=== PATIENT | female | born 1970 | race Caucasian/White ===

== ENCOUNTER 2025-01-02 17:58 | Outpatient (CLI) | payer OTHER, SELFPAY ==
--- OUTSIDE RECORDS SUMMARY | 2024-11-13 15:00 | XMS_ITS | Encounter Summary ---
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 Name Role Phone Trevor Rolon DO Primary Care Provider Lucy Christopher DO Unavailable Reason for Visit * Reason Comments psoriatic arthritis * Consultation (Routine) - Authorized Specialty Diagnoses / Procedures Referred By Truong bella Referred To Contact Rheumatology Diagnoses Psoriatic arthritis Procedures MN OFFICE/OUTPATIENT NEW SF MDM 15 MINUTES MN OFFICE/OUTPATIENT NEW LOW MDM 30 MINUTES MN OFFICE/OUTPATIENT NEW MODERATE MDM 45 MINUTES MN OFFICE/OUTPATIENT NEW HIGH MDM 60 MINUTES MN OFFICE/OUTPATIENT ESTABLISHED SF MDM 10 MIN MN OFFICE/OUTPATIENT ESTABLISHED LOW MDM 20 MIN MN OFFICE/OUTPATIENT ESTABLISHED MOD MDM 30 MIN MN OFFICE/OUTPATIENT ESTABLISHED HIGH MDM 40 MIN Laquita Corral PA [address] [facility] [address] [place] [address] Phone: tel: fax: Suman Treviño MD [address] [place] [address] Phone: tel: fax: Referral ID Status Reason Start Date Expiration Date Visits Requested Visits Authorized [id number] Authorized Specialty Services Required 09/01/2024 09/01/2025 1 3 Encounter Details Date Type Department Care Team (Latest Contact Info) Description 11/13/2024 3:00 PM EDT Office Visit [facility] [address] [facility] [place] [id number] Suman Treviño MD [address] [place] [phone] Psoriatic arthritis (Primary Dx); Psoriasis; Paroxysmal atrial fibrillation; Hepatic encephalopathy Social History Tobacco Use Types Packs/Day Years Used Date Smoking Tobacco: Former Cigarettes 1 7 2 015 - 2021 Passive Smoke Exposure: Past Smokeless Tobacco: Never Alcohol Use Standard Drinks/Week Comments Never 0 (1 standard drink = 0.6 oz pur e alcohol) Humiliation, Afraid, Rape, and Kick questionnair e Answer Date Recorded Within the last year, have y ou been afraid of your partner or ex-partner? No 07/24/2022 Within the last year, have y ou been humiliated or emotionally abused in other ways by your partner or ex-partner? No Within the last year, have y ou been kicked, hit, slapped, or otherwise physically hurt by your partner or ex-partner? No 07/24/2022 Within the last year, have y ou been raped or forced to have any kind of sexual activity by your partner or ex-partner? No 07/24/2022 Social Connection and Isolation Panel Answer Date Recorded In a typical week, how many times do you talk on the phone with family, friends, or neighbors? Twice a week 07/24/2022 How often do you get togethe r with friends or relatives? Once a week 07/24/2022 How often do you attend chur ch or protestant services? More than 4 times per year 07/24/2022 Do you belong to any clubs o r organizations such as latter-day groups, unions, fraternal or athletic groups, or school groups? No 07/24/2022 How often do you attend meet ings of the clubs or organizations you belong to? Never 07/24/2022 Are you , , di vorced, , never , or living with a partner? 07/24/2022 AUDIT-C Answer Date Recorded Q1: How often do you have a drink containing alcohol? Never 07/23/2022 Q2: How many drinks containi ng alcohol do you have on a typical day when you are drinking? Patient does not drink Q3: How often do you have si x or more drinks on one occasion? Never 07/23/2022 Overall Financial Resource Strain (CARDIA) Answe r Date Recorded How hard is it for you to pa y for the very basics like food, housing, medical care, and heating? Not hard at all 07/24/2022 PHQ-2 Answer Date Recorded Patient Health Questionnaire-2 Score 0 09/28/2023 [facility] [place] of Occupat ional Health - Occupational Stress Questionnaire Answer Date Recorded Do you feel stress - tense, restless, nervous, or anxious, or unable to sleep at night because your mind is troubled all the time - these days? Not at all 07/24/2022 Exercise Vital Sign Answer Date Recorde d On average, how many days pe r week do you engage in moderate to strenuous exercise (like a brisk walk)? 0 days 07/23/2022 On average, how many minutes do you engage in exercise at this level? 0 min 07/23/2022 Hunger Vital Sign Answer Date Recorded Within the past 12 months, y ou worried that your food would run out before you got the money to buy more. Never true 07/24/19 23 Within the past 12 months, t he food you bought just didn't last and you didn't have money to get more. Never true 07/24/2022 PRAPARE - Transportation Answer Date Re corded In the past 12 months, has l ack of transportation kept you from medical appointments or from getting medications? No 07/12 In the past 12 months, has l ack of transportation kept you from meetings, work, or from getting things needed for daily living? No 07/24/2022 Housing Stability Vital Sign Answer Matt e Recorded In the last 12 months, was t here a time when you were not able to pay the mortgage or rent on time? No 07/24/2022 In the last 12 months, how many places have you lived? 1 07/24/2022 In the last 12 months, was t here a time when you did not have a steady place to sleep or slept in a halfway (including now)? No 07/24/2022 Comments No Sex and Gender Information Value Date Recorded Sex Assigned at Female 09/17/2021 11:23 AM EST Legal Sex Female 11:23 AM EST Gender Identity Female 09/17/2021 11:23 AM EST Sexual Orientation Straight 09/17/2021 11 :23 AM EST documented as of this encounter Last Filed Vital Signs Vital Sign Reading Time Taken Comments Blood Pressure 92/64 11/13/2024 3:08 PM EDT Pulse 80 11/13/2024 3:08 PM EDT Temperature 37.1 C (98.7 F) 11/13/2024 3:08 PM EDT Respiratory Rate 20 11/13/2024 3:08 PM EDT Oxygen Saturation 100% 11/13/2024 3:08 PM EDT Inhaled Oxygen Concentration - - Weight 74.4 kg (164 lb) 11/13/2024 3:08 PM EDT Height 170.2 cm (5' 7 ) 11/13/2024 3:08 PM EDT Body Mass Index 25.69 11/13/2024 3:08 PM EDT documented in this encounter Progress Notes * Suman Treviño MD - 11/13/2024 3:00 PM EDT [facility] Rheumatology Outpatient Consult Note Referring provider: Reason for the visit : History of Present Illness: This is a 54 y.o. old female with PMH (including but not limited) of psoriasis, PsA here fin consultation by his PCP to evaluate PsA t establish care Used to see Rheumatology Dr. Cain, last seen him in 2016, took methotrexate, Humira and folic acid for 12 years. Off both medication since 2016. She quit going there due to insurance changes. Mostly hands, shoulders and knees at the time of dx Has Non alcoholic cirrhosis, seeing [facility] liver / transplant team and she was told that she is not ready for transplant as her MELD score was low. She denies hair loss, eye inflammation, dry eyes/mouth, oral/nasal ulcer, dysphagia, CP/SOB, NVDC, skin rash, Raynaud phenomenon, hemoptysis, hematemesis, gross hematuria, weight change, fever, chills. No history of IBD. Patient denies history of cancer. Today reports hands, elbows and having a lot trouble of her feet Has peripheral neuropathy walking on nails all the time burning and stay cold, has upcomming appointment with podiatry. Hx of passing out and activity seeing Dr. Knox. Working on progress with US carotid, MRI brain andHolter monitor Sees [facility] Hematology for low platelets. Rx with steroid for her psoriasis this year and resolved. Rheumatology ROS Headache: No, Scalp tenderness: No, Jaw Claudication: No, Limb claudication: No Epistaxis: No, Chronic Sinusitis: No, Hearing loss: No, Red/Painful eye: No Raynaud's: No, Digital ulcers: No, Skin tightening: No, Purpura: No Alopecia: No, oral/nasal sores: No Dry Eyes: No, Dry Mouth: No Malar rash: No, Photosensitivity: No Serositis: No Cytopenias: No H/o VTE: No H/o CVA: No H/o Miscarriage: x 1 H/o Seizures: No Enthesitis: No, Dactylitis: No, IBP: No, Buttock pain: No H/o inflammatory eye disease: No H/o urethritis: No H/o asthma: No FHx of IBD: No FHx of PSO: No Review of Systems: All systems reviewed and negative except per HPI Medications: Current Outpatient Medications Medication Sig Dispense Refill bumetanide (Bumex) 1 MG tablet Take 2 tablets (2 mg) by mouth in the morning. Continuous Glucose Sensor (Dexcom G7 Sensor) misc 1 each q10 days. Use every 10 days 3 each 11 desvenlafaxine (Pristiq) 50 MG 24 hr tablet Take 1 tablet (50 mg) by mouth in the morning. Do not crush, chew, or split. Diclofenac Sodium (Voltaren) 1 % gel Apply to affected area BID PRN 100 g 2 empagliflozin (Jardiance) 25 MG Take 1 tablet (25 mg) by mouth in the morning. 30 tablet 11 ergocalciferol (Vitamin D-2) 1.25 MG (59661 UT) capsule Take 1 capsule (1.25 mg) by mouth 1 (one) time per week. FeroSul 325 (65 Fe) MG tablet Take 1 tablet (325 mg) by mouth in the morning. glucose blood (OneTouch Verio) test strip Use 3 per day. Code E11.65 100 each 11 hydrOXYzine HCl (Atarax) 25 MG tablet Take 1 tablet (25 mg) by mouth if needed in the morning, at noon, and at bedtime for itching. insulin aspart (NovoLOG FLEXPEN) 100 UNIT/ML pen Take 5 units at breakfast, lunch, and supper if premeal BS >150. Max daily dose 50 units 15 mL 3 Insulin Pen Needle (Pen [place]) 32G X 4 MM misc Use 4 per day 100 each 3 LACTULOSE PO Take by mouth in the morning. lansoprazole (Prevacid) [address] capsule Take by mouth before breakfast. Do not crush or chew. Lantus SoloStar 100 UNIT/ML pen Take 20 units daily. Titrate to target glucose. Max daily dose 50 units. 15 mL 3 lidocaine (Lidoderm) 5 % patch Apply 1 patch topically if needed each day for mild pain (1-4) or moderate pain (5-7). lisinopril 2.5 MG tablet Take 1 tablet (2.5 mg) by mouth in the morning. metoprolol succinate XL (Toprol-XL) 200 MG 24 hr tablet Take 1 tablet (200 mg) by mouth in the morning. potassium chloride CR (Klor-Con M20) 20 MEQ ER tablet Take 1 tablet (20 mEq) by mouth in the morning and 1 tablet (20 mEq) in the evening. Rimegepant Sulfate (Nurtec) 75 MG tablet dispersible Take 1 tab PO at the onset of a migraine. Do not exceed more than 1 tab in 24 hours. 8 tablet 5 rOPINIRole (Requip) 1 MG tablet Take 1 tablet (1 mg) by mouth in the morning, at noon, in the evening, and at bedtime. Semaglutide, 1 MG/DOSE, (Ozempic, 1 MG/DOSE,) 4 MG/3ML solution pen-injector Inject 1 mg under the skin 1 (one) time per week. Take 1 mg each week 3 mL 11 simvastatin (Zocor) 20 MG tablet Take 1 tablet (20 mg) by mouth at bedtime. spironolactone (Aldactone) 100 MG tablet Take 1 tablet (100 mg) by mouth in the morning. Xifaxan 550 MG tablet TAKE 1 Tablet BY MOUTH EVERY MORNING AND AT BEDTIME 60 tablet 2 Lifitegrast (Xiidra) 5 % solution INSTILL 1 DROP IN EACH EYE TWO TIMES A DAY (Patient taking differently: if needed each day. INSTILL 1 DROP IN EACH EYE TWO TIMES A DAY) 180 each 4 ondansetron (Zofran) 4 MG tablet Take 1 tablet (4 mg) by mouth every 8 (eight) hours if needed for nausea or vomiting. pantoprazole (ProtoNix) 40 MG EC tablet Take 1 tablet (40 mg) by mouth before breakfast. Do not crush, chew, or split. 30 tablet 6 Vonoprazan Fumarate (Voquezna) 10 MG tablet Take 10 mg by mouth in the morning. 30 tablet 3 No current facility-administered medications for this visit. Past Medical History: Past Medical History: Diagnosis Date Anxiety Arthritis Chronic back pain Cirrhosis nonalcoholic of the liver Depression Diabetes mellitus Headache Heart disease High cholesterol Hypertension Memory loss Numbness Restless leg syndrome Serratia infection Sleep apnea Spinal abscess Vasculitis Past Surgical History: Past Surgical History: Procedure Laterality Date APPENDECTOMY BACK SURGERY BREAST SURGERY reduction CHOLECYSTECTOMY COLONOSCOPY CT CHEST ANGIOGRAM W AND/OR WO IV CONTRAST 03/25/2020 CT CHEST ANGIOGRAM W AND/OR WO IV CONTRAST [facility] D DIAG IMG CYST REMOVAL Left wrist ESOPHAGOGASTRODUODENOSCOPY EXPLORATORY LAPAROTOMY HYSTERECTOMY OVARIAN CYST REMOVAL TUBAL LIGATION Social History She denies smoking, drinking, illegal substance abuse. , 1 child. Worked [employer] Family History Mother and sister RA Physical Examination: Vitals: 11/13/24 1508 BP: 92/64 Pulse: 80 Resp: 20 Temp: 98.7 ??F (37.1 ??C) SpO2: 100% Vital signs reviewed Feet: No synovitis. squeeze MTP tenderness. No plantar fascial TTP. Alert and oriented ??3 HEENT atrumatic normocephalic Neck supple Chest clear air entry bilateral CVS audible heart sound with no murmur Neck and spine with mild limited ROM Upper extremity joints with decent range of motion. No clear clinical synovitis Lower extremity joints were decent range of motion. No clear clinical synovitis. No dactylitis or enthesopathy. No nail changes. No clear skin changes. Normal gait. Cranial nerve grossly intact Knee Reflexes normal No sclerodactyly No telangectasia No finger tips ulceration Normal muscle strengths 5/5 proximal and distals B/L temporal artery pulse unremarkable, no beading, no scalp ulceration No finger tips ulceration No tophi Labs: Lab Results Component Value Date WBC 4.5 10/26/2024 RBC 3.93 10/26/2024 MCV 97.8 (H) 10/26/2024 MCH 33.9 (H) 10/26/2024 MCHC 34.6 10/26/2024 RDW 13.2 10/26/2024 EOSPCT 8 (H) 10/17/2024 Lab Results Component Value Date SODIUM 137 (L) 03/25/2020 POTASSIUM 4.5 03/25/2020 CHLORIDE 99 03/25/2020 GLUCOSE 51 (L) 10/17/2024 BUN 14 10/17/2024 ALKPHOS 186 (H) 10/17/2024 AST 55 (H) 10/17/2024 CALCIUM 9.0 10/17/2024 ALBUMIN 3.5 10/17/2024 ALT 29 10/17/2024 Lab Results Component Value Date URICACID 3 10/26/2024 No results found for: GLUCOSEUR , SPECGRAV , UROBILINOGEN , NITRITE , WBCUR , RBCUR Lab Results Component Value Date CRP 0.3 02/28/2020 Negative RF, JEANNIE Imaging: Left foot x ray 08/2024 stable and negative for erosion Assessment/Recommendations : Diagnosis Plan 1. Hx of peripheral Psoriatic arthritis Ambulatory referral/appointment with Rheumatology Anti-CCP Antibodies, IgG & IgA, CRISTAL DSDNA ANTIBODY BY IFA, CRITHIDIA LUCILIAE Anti-Castellon antibody Sjogren's Antibodies Anti-Carole 1 antibody, IgG Antinuclear Abs, IFA XR hand 1 or 2 views bilateral XR foot 1 or 2 views bilateral XR sacroiliac joints 3+ views Sjogren's Antibodies Anti-Carole 1 antibody, IgG CK C4 complement C3 complement 2. Psoriasis History of psoriasis in remission. BSA < 1%. History of psoriatic arthritis near remission, no dactylitis, synovitis or enthesopathy. Tender joint count 0. Swollen joint count 0. Nonalcoholic liver cirrhosis under care of [facility] GI. Will check hand/feet and sacroiliac joint x-rays for risk stratification. Check JEANNIE/subserologies for risk stratification She did see neurology for feet neuropathy and neuropathy panel including ANCA panel, has been ordered back in September 2024 and reminded patient to get it done when she gets our lab as well. She did see Dr. Cain at [facility] rheumatology and has had methotrexate/Humira for 10 years. Has been off both medication since 2016 as her insurance quit covering [facility] rheumatology. She has arthralgia, noninflammatory. Limited option given her history of liver cirrhosis. Patient was advised to touch base with her liver clinic provider for guidance as it relate to [id number] medication. Okay to use lidocaine cream and Voltaren gel on as-needed basis. Wear comfortable shoes with memory foam. Use insert and insoles. Has nonalcoholic liver cirrhosis under care of [facility] GI, has had [facility] evaluation and her MELD score was low has not ready for transplant. Patient deferred her DMARDs fear of side effect. I do not think there is any clear indication to resume DMARD for her psoriasis and psoriatic arthritis given the remission status. Continue monitor from Rheumatology perspective. Continue follow-up with GI/liver clinic for nonalcoholic liver cirrhosis.Continue follow-up with [facility] hematology for thrombocytopenia which likely related to her liver cirrhosis. Recommend age-appropriate cancer screen and cardiovascular risk assessment with primary care. Recommend age-appropriate vaccination per primary care. Patient question answered and she is comfortable with the plan of care. Thank you for the consult. Return to clinic in 6 to 8 weeks Suman Treviño MD, FACP, FACR Note to patient: The Cures Act makes medical notes like these available to patients inthe interest of transparency. However, be advised this is a medical document. It is intended as peer to peer communication. It is written in medical language and may contain abbreviations or verbiagethat are unfamiliar. It may appear blunt or direct. Medical documents are intended to carry relevant information, facts as evident, and the clinical opinion of the medical professional. documented in this encounter Miscellaneous Notes * Patient Education - Gisel Agarwal - 11/13/2024 3:05 PM EDT Images from the original note were not included. Patient Education Table of Contents Psoriatic Arthritis To view videos and all your education online visit, [email or web address] or scan this QR code with your smartphone. Access to this content will in one year. Psoriatic Arthritis Psoriatic arthritis, or PsA, is a long-term (chronic) condition that causes pain, swelling, and stiffness in the joints. The large joints of the legs, hips, and pelvis are most often affected but it can affect any joint in your body. Most people with PsA have a chronic skin disease that causes itchy scales and patches to form on the skin (psoriasis) before they develop PsA. In some cases, a person may have PsA before or without having psoriasis. PsA can be mild or severe. If untreated, PsA may cause joint damage. What are the causes? The exact cause of this condition is not known. PsA is an autoimmune disease. With this type of disease, the body's defense system (immune system) mistakenly attacks joints and the tissues that connect muscles to joints (tendons). The disease may be activated by a trigger, such as: Infections. Stress. Alcohol. What increases the risk? You are more likely to develop this condition if: You have psoriasis. You have a family history of psoriasis or PsA. You are between the ages of 30 and 50. What are the signs or symptoms? The main symptom of this condition is inflammation of joints and tendons. Other symptoms may include: Joint pain or swelling. Joint stiffness, especially in the morning. Swollen fingers and toes. Pain in areas where tendons connect to bones. Pitted and weak nails. Tiredness (fatigue). Eye redness. Symptoms of this condition vary from person to person. Symptoms may come and go. Sometimes, symptoms get worse for a period of time. This is called a flare. How is this diagnosed? This condition may be diagnosed based on: Your symptoms and medical history. A physical exam. Imaging tests such as an X-ray, a CT scan, or an MRI. Blood tests to look for inflammation and to rule out other causes, such as gout or rheumatoid arthritis. You may also be referred to a health care provider who specializes in treating this condition (resource management specialist). How is this treated? The goal of treatment is to reduce pain and inflammation and to protect joints from damage. Treatment depends on how severe the inflammation is and how many joints are affected. Treatment may include: Medicines. ? NSAIDs, such as ibuprofen or naproxen. ? Steroids. These can be taken by mouth or injected into a swollen joint. ? Disease-modifying anti-rheumatic drugs (DMARDs). These slow the course of the disease. ? Biologic medicines. These medicines are usually given as injections or through an IV. They can bevery effective, but these medicines can increase the risk of developing infections. Physical therapy and other exercises to: ? Strengthen muscles that support joints. ? Prevent joint stiffness. Lifestyle changes. It is important to rest as needed, eat a healthy diet, and exercise. A brace or splint to support a painful and swollen joint. Surgery if you have severe joint damage. Management of any associated medical conditions. Inflammation from PsA can affect other parts of the body, including the heart, eyes, or kidneys. Follow these instructions at home: Managing pain, stiffness, and swelling If directed, put ice on painful areas. To do this: ? If you have a removable brace or splint, remove it as told by your health care provider. ? Put ice in a plastic bag. ? Place a towel between your skin and the bag. ? Leave the ice on for 20 minutes, 2?3 times a day. ? Remove the ice if your skin turns bright red. This is very important. If you cannot feel pain, heat, or cold, you have a greater risk of damage to the area. If you have a removable brace or splint: Wear the brace or splint as told by your health care provider. Remove it only as told by your health care provider. Check the skin around the brace or splint every day. Tell your health care provider about any concerns. Loosen the brace or splint if your fingers or toes tingle, become numb, or turn cold and blue. Keep the brace or splint clean and dry. Activity Return to your normal activities as told by your health care provider. Ask your health care provider what activities are safe for you. Get regular exercise. Ask your health care provider what type of exercise is best for you. Your health care provider may recommend: ? Low-impact exercises such as walking, biking, or swimming. ? Exercises that include stretching, such as vito chi and yoga. Do not exercise when you have a flare of symptoms. Rest until the symptoms improve. Lifestyle Maintain a healthy weight. A healthy weight will help you stay active and take stress off your joints. Eat a healthy diet that includes plenty of vegetables, fruits, whole grains, low-fat dairy products, and lean protein. Do not eat a lot of foods that are high in solid fats, added sugars, or salt. Use techniques for stress reduction, such as meditation or yoga. Do not use any products that contain nicotine or tobacco. These products include cigarettes, chewing tobacco, and vaping devices, such as e-cigarettes. If you need help quitting, ask your health careprovider. Consider joining a PsA support group. General instructions Take fllq-tsu-wirsbyd and prescription medicines only as told by your health care provider. Keep a journal to help track your symptoms. Try to avoid any triggers. Do not drink alcohol if your health care provider tells you not to drink. See a mental health therapist if you feel sad, anxious, frustrated, and hopeless. Managing this condition can be challenging and you may feel overwhelmed and depressed. Keep all follow-up visits. Your health care provider may monitor your condition over time to make sure that it does not cause problems or get worse. Where to find support National Psoriasis Foundation: www.psoriasis.org Where to find more information [place] [employer]: www.aad.org [place] [employer]: www.rheumatology.org Contact a health care provider if: You have a fever or chills. Your symptoms get worse. You feel depressed, frustrated, and hopeless about your condition. Get help right away if: You have thoughts of hurting yourself or others. Get help right away if you feel like you may hurt yourself or others, or have thoughts about takingyour own life. Go to your nearest emergency room or: Call 911. Call the National Suicide Prevention Lifeline at or 391. This is open 24 hours a day. Text the Crisis Text Line at 764728. Summary Psoriatic arthritis, or PsA, is a long-term condition that causes pain, swelling, and stiffness in the joints. The goal of treatment is to reduce pain and inflammation and to protect joints from damage. Treatment depends on how severe the inflammation is and how many joints are affected. This information is not intended to replace advice given to you by your health care provider. Make sure you discuss any questions you have with your health care provider. Document Released: 2019-03-02 Document Updated: 2022-08-17 Document Reviewed: 2022-08-17 Elsevier Patient Education ? 2024 [employer] documented in this encounter Plan of Treatment Upcoming Encounters Date Type Department Care Team (Late st Contact Info) Description 01/22/2025 12:00 PM EDT Office Visit [facility] [address] [place] [address] Ben Knox MD [address] [place] [address] 01/22/2025 2:00 PM EDT Office Visit [facility] [address] [place] [address] Suman Treviño MD [address] [facility] [place] [address] 01/24/2025 1:00 PM EDT Office Visit [facility] [address], [place] [address] Demario Silva DO [address] [place] [id number] 02/15/2025 1:20 PM EDT Appointment [facility] [address], [place] [address] 02/27/2025 1:00 PM EDT Office Visit [facility] [address] [place] [address] Alexandr Zarate DPM [address] [facility] [place] [address] 02/28/2025 1:45 PM EDT Office Visit [facility] [address], [address] [place] [address] Lucy Christopher DO [address] Bld[address] [place] [id number] 03/19/2025 1:15 PM EDT Office Visit [facility] [address], 2nd [place] [address] 08/16/2025 10:00 AM EST Office Visit [facility] [address], 8[address] [place] [address] Brigitte Mahoney NP [address] [place] [address] 12/13/2025 11:00 AM EDT Office Visit [facility] [address], 7[address] [place] [address] Janice Woodward NP [address] [place] [address] documented as of this encounter Results * XR sacroiliac joints 3+ views (11/15/2024 1:45 PM EDT) Anatomical Region Laterality Modality Sacroiliac joint, Pelvis Digital Radiography 11/15/2024 1:45 PM EDT Impressions 11/16/2024 12:58 PM EDT Negative sacroiliac joints. Electronically signed by: Alexsander Dsouza MD 11/16/2024 12:58 PM EDT RP Narrative 11/16/2024 12:58 PM EDT PROCEDURE: XR SACROILIAC JOINT 3 OR MORE VIEWS: 11/15/2024 CLINICAL INFORMATION: PsA Alignment is anatomic. There is no evidence of acute fractures. The sacroiliac joints are open bilaterally. There is no evidence of fusion. There is no evidence of significant arthritic change involving the sacroiliac joints. Included soft tissues are unremarkable. Procedure Note Alexsander Dsouza MD - 11/16/2024 PROCEDURE: XR SACROILIAC JOINT 3 OR MORE VIEWS: 11/15/2024 CLINICAL INFORMATION: PsA Alignment is anatomic. There is no evidence of acute fractures. Thesacroiliac joints are open bilaterally. There is no evidence of fusion.There is no evidence of significant arthritic change involving thesacroiliac joints. Included soft tissues are unremarkable. IMPRESSION: Negative sacroiliac joints. Electronically signed by: Alexsander Dsouza MD 11/16/2024 12:58 PM EDT RPWorkstation: [id number] Suman Treviño MD IMG XR PROCEDURES Final Result * XR foot 1 or 2 views bilateral (11/15/2024 1:45 PM EDT) Anatomical Region Laterality Modality Lower Extremities, Foot Bilateral Digital Radiography 11/15/2024 1:45 PM EDT Impressions 11/16/2024 1:00 PM EDT Small calcaneal spurs. RIGHT FOOT Alignment is anatomic. There is no evidence of acute fracture, or dislocation. There are small calcaneal spurs. Included soft tissues are unremarkable. IMPRESSION: Small calcaneal spurs. Electronically signed by: Alexsander Dsouza MD 11/16/2024 01:00 PM EDT RP Narrative 11/16/2024 1:00 PM EDT PROCEDURE: XR FOOT 2 VIEWS BILATERAL: 11/15/2024 CLINICAL INFORMATION: PsA LEFT FOOT Alignment is anatomic. There is no evidence of acute fracture, or dislocation. There are small calcaneal spurs. Included soft tissues are within normal limits. Procedure Note Alexsander Dsouza MD - 11/16/2024 PROCEDURE: XR FOOT 2 VIEWS BILATERAL: 11/15/2024 CLINICAL INFORMATION: PsA LEFT FOOT Alignment is anatomic. There is no evidence of acute fracture, ordislocation. There are small calcaneal spurs. Included soft tissues arewithin normal limits. IMPRESSION: Small calcaneal spurs. RIGHT FOOT Alignment is anatomic. There is no evidence of acute fracture, ordislocation. There are small calcaneal spurs. Included soft tissues areunremarkable. IMPRESSION: Small calcaneal spurs. Electronically signed by: Alexsander Dsouza MD 11/16/2024 01:00 PM EDT RPWorkstation: [id number] us Suman Treviño MD IMG XR PROCEDURES Final Result * XR hand 1 or 2 views bilateral (11/15/2024 1:45 PM EDT) Anatomical Region Laterality Modality Upper Extremities, Hand Bilateral Digital Radiography 11/15/2024 1:45 PM EDT Impressions 11/16/2024 12:59 PM EDT Negative left hand radiograph. RIGHT HAND Alignment is anatomic. There is no evidence of acute fracture, or dislocation. Soft tissues are unremarkable. IMPRESSION: Negative right hand radiograph. Electronically signed by: Alexsander Dsouza MD 11/16/2024 12:59 PM EDT RP Narrative 11/16/2024 12:59 PM EDT PROCEDURE: XR HAND 2 VIEWS BILATERAL: 11/15/2024 CLINICAL INFORMATION: PsA LEFT HAND Alignment is anatomic. There is no evidence of acute fracture, or dislocation. Soft tissues are unremarkable. Procedure Note Alexsander Dsouza MD - 11/16/2024 PROCEDURE: XR HAND 2 VIEWS BILATERAL: 11/15/2024 CLINICAL INFORMATION: PsA LEFT HAND Alignment is anatomic. There is no evidence of acute fracture, ordislocation. Soft tissues are unremarkable. IMPRESSION: Negative left hand radiograph. RIGHT HAND Alignment is anatomic. There is no evidence of acute fracture, ordislocation. Soft tissues are unremarkable. IMPRESSION: Negative right hand radiograph. Electronically signed by: Alexsander Dsouza MD 11/16/2024 12:59 PM EDT RPWorkstation: [id number] us Suman Treviño MD IMG XR PROCEDURES Final Result * (ABNORMAL) C3 complement (11/15/2024 11:29 AM EDT) C3 Complement 62(L) 87 - 200 mg/dL 11/15/2024 12:29 PM EDT [facility] Blood Venous blood specimen / Unknown Venipuncture / Unknown 11/15/2024 11:29 AM EDT 11/15/2024 12:02 PM EDT [facility] - 11/15/2024 12:29 PM EDT Please note possible changes in reference range and units reported due to change in methodology. us Suman Treviño MD LAB BLOOD ORDERABLES Final Res ult [facility] [address] [place] [address], [place] [phone] * (ABNORMAL) C4 complement (11/15/2024 11:29 AM EDT) C4 Complement 10(L) 19 - 52 mg/dL 11/15/2024 12:29 PM EDT [facility] Blood Venous blood specimen / Unknown Venipuncture / Unknown 11/15/2024 11:29 AM EDT 11/15/2024 12:02 PM EDT [facility] - 11/15/2024 12:29 PM EDT Please note possible changes in reference range and units reported due to change in methodology. us Suman Treviño MD LAB BLOOD ORDERABLES Final Res ult Performing Organization Address [facility] Co de Phone Number [facility] [address] [place] [address], [place] [phone] * CK (11/15/2024 11:29 AM EDT) Pathologist [facility] Total CK 76 30 - 223 U/L 11/15/2024 12:29 PM EDT [facility] Blood Venous blood specimen / Unknown Venipuncture / Unknown 11/15/2024 11:29 AM EDT 11/15/2024 12:02 PM EDT [facility] - 11/15/2024 12:29 PM EDT Please note possible changes in reference range and units reported due to change in methodology. us Suman Treviño MD LAB BLOOD ORDERABLES Final Res ult Performing Organization Address City/[facility]/ZIP Co de Phone Number [facility] [address] [place] [address], [place] [phone] * Antinuclear Abs, IFA (11/15/2024 11:29 AM EDT) Antinuclear Abs, IFA Negative 11/20/2024 10:07 AM EDT [facility]) Comment: Negative <1:80 Borderline 1:80 Positive >1:80 ICAP nomenclature: AC-0 For more information about Hep-2 cell patterns use ANApatterns.org, the official website for the International Consensus on Antinuclear Antibody (JEANNIE) Patterns (ICAP). Blood Venous blood specimen / Unknown Venipuncture / Unknown 11/15/2024 11:29 AM EDT 11/15/2024 12:03 PM EDT Narrative [facility]) - 11/20/2024 10:07 AM EDT Performed at: [address] [place] [address] [id number] Retail Marketing Specialist: Raphael Edwards PhD, Phone: [phone] us Suman Treviño MD LAB BLOOD ORDERABLES Final Res ult [email or web address]) [address] [place] [address], [place] [phone] * Anti-Carole 1 antibody, IgG (11/15/2024 11:29 AM EDT) Anti-Carole-1 <0.2 0.0 - 0.9 AI 11/16/2024 12:07 PM EDT [facility] ([facility]) Blood Venous blood specimen / Unknown Venipuncture / Unknown 11/15/2024 11:29 AM EDT 11/15/2024 12:03 PM EDT Narrative [facility]) - 11/16/2024 12:07 PM EDT Performed at: [address] [place] [address] [id number] Retail Marketing Specialist: Raphael Edwards PhD, Phone: [phone] us Suman Treviño MD LAB BLOOD ORDERABLES Final Res ult Performing Organization Address City/[facility]/ZIP Co de Phone Number [facility] ([place]) [address] [place] [phone], * Sjogren's Antibodies (11/15/2024 11:29 AM EDT) Sjogren's Anti-SS-A <0.2 0.0 - 0.9 AI 11/16/2024 12:07 PM EDT [facility] (BE[facility]ER) Sjorgren's Anti-SS-B <0.2 0.0 - 0.9 AI 11/16/2024 12:07 PM EDT [facility] ([facility]) Blood Venous blood specimen / Unknown Venipuncture / Unknown 11/15/2024 11:29 AM EDT 11/15/2024 12:03 PM EDT Narrative [facility] ([facility]) - 11/16/2024 12:07 PM EDT Performed at: [address] [place] [address] [id number] Retail Marketing Specialist: Raphael Edwards PhD, Phone: [phone] Suman Treviño MD LAB BLOOD ORDERABLES Final Res ult Performing Organization Address City/[facility]/ZIP Co de Phone Number [facility] NICHOL[facility]) [address] [place] [phone], * Anti-Castellon antibody (11/15/2024 11:29 AM EDT) Castellon Abs <0.2 0.0 - 0.9 AI 11/16/2024 12:07 PM EDT [facility] ([facility]) Blood Venous blood specimen / Unknown Venipuncture / Unknown 11/15/2024 11:29 AM EDT 11/15/2024 12:03 PM EDT Narrative [facility] ([facility]) - 11/16/2024 12:07 PM EDT Performed at: [address] [place] [address] [id number] Retail Marketing Specialist: Raphael Edwards PhD, Phone: [phone] us Suman Treviño MD LAB BLOOD ORDERABLES Final Res ult Performing Organization Address City/[facility]/ZIP Co de Phone Number [email or web address]) [address] [place] [address], * DSDNA ANTIBODY BY IFA, CRITHIDIA LUCILIAE (11/15/2024 11:29 AM EDT) dsDNA Crithidia luciliae IFA Negative Negative 11/17/2024 10:07 AM EDT [facility] ([facility]) Blood Venous blood specimen / Unknown Venipuncture / Unknown 11/15/2024 11:29 AM EDT 11/15/2024 12:03 PM EDT Narrative [facility] NICHOL[facility]) - 11/17/2024 10:07 AM EDT Performed at: [address] [place] [address] [id number] Retail Marketing Specialist: Raphael Edwards PhD, Phone: [phone] us Suman Treviño MD LAB BLOOD ORDERABLES Final Res ult Performing Organization Address City/[facility]/ZIP Co de Phone Number [email or web address]) [address] [place] [address], * Anti-CCP Antibodies, IgG & IgA, CRISTAL (11/15/2024 11:29 AM EDT) CCP IgG/IgA Abs 9 0 - 19 units 11/16/2024 3:07 PM EDT [facility] ([facility]) Comment: Negative <20 Weak positive 20 - 39 Moderate positive 40 - 59 Strong positive >59 Blood Venous blood specimen / Unknown Venipuncture / Unknown 11/15/2024 11:29 AM EDT 11/15/2024 12:03 PM EDT Narrative [facility]) - 11/16/2024 3:07 PM EDT Performed at: [address] [id number] Retail Marketing Specialist: Raphael Edwards PhD, Phone: [phone] us Suman Treviño MD LAB BLOOD ORDERABLES Final Res ult [facility] ([facility]) [address] [place] [address], documented in this encounter Visit Diagnoses Diagnosis Psoriatic arthritis- Primary Psoriatic arthropathy Psoriasis Other psoriasis Paroxysmal atrial fibrillation Atrial fibrillation Hepatic encephalopathy Psoriatic arthritis Psoriatic arthropathy documented in this encounter Additional Health Concerns Assessment Noted Time PHQ-9 Depression Total Score: 0 07/24/19 23 3:00 PM EST documented as of this encounter Care Teams Wash Operator Relationship Specialty Start Date End Date Trevor Rolon DO [address] [facility] [address] [place] [id number] PCP - General Lucy Christopher DO [address] [facility] [place] [place] [address] Consulting Physician Oncology 10/17/24 documented as of this encounter
--- OUTSIDE RECORDS SUMMARY | 2024-11-15 10:00 | XMS_ITS | Encounter Summary ---
Author Organization [facility] Address [address] [place] [address] Care Team Providers Care Film Flat Inspector Name Role Phone Trevor Rolon DO Primary Care Provider Lucy Christopher DO Unavailable Reason for Visit * Reason Comments Follow-up Encounter Details Date Type Department Care Team (Latest Contact Info) Description 11/15/2024 10:00 AM EDT Office Visit [facility] [address] [place] [address] Mc Grant DO [address] [place] [address] Cirrhosis of liver with ascites, unspecified hepatic cirrhosis type (Primary Dx); GAVE (gastric antral vascular ectasia); Encephalopathy, hepatic; Iron deficiency anemia, unspecified iron deficiency anemia type Social History Tobacco Use Types Packs/Day Years [...] week 07/24/2022 How often do you attend [facility] or yazdanism services? More than 4 times per year 07/24/2022 Do you belong to any clubs o r organizations such as pentecostal groups, unions, fraternal or athletic groups, or [...] Recorded Patient Health Questionnaire-2 Score 0 09/28/2023 [facility] - Occupational Stress [...] place to sleep or slept in a residential (including now)? No 07/24/2022 Comments No Sex and Gender Information Value Date Recorded Sex Assigned at Female 09/17/2021 11:23 AM EST Legal Sex Female 11:23 AM EST Gender Identity Female 09/17/2021 11:23 AM EST Sexual Orientation Straight 09/17/2021 11 :23 AM EST documented as of this encounter Last Filed Vital Signs Vital Sign Reading Time Taken Comments Blood Pressure 100/64 11/15/2024 10:46 AM EDT Pulse - - Temperature - - Respiratory Rate 16 11/15/2024 10:46 AM EDT Oxygen Saturation 99% 11/15/2024 10:46 AM EDT Inhaled Oxygen Concentration - - Weight 75.4 kg (166 lb 3.2 oz) 11/15/2024 10:46 AM EDT Height 170.2 cm (5' 7 ) 11/15/2024 10:46 AM EDT Body Mass Index 26.03 11/15/2024 10:46 AM EDT documented in this encounter Progress Notes * Mc Grant, DO - 11/15/2024 10:00 AM EDT Subjective Patient ID: Trudy Peña is a 54 y.o. female who presents for Follow-up. 54 year old female returns to clinic for scheduled follow up of chronic liver disease. She reports some persistent fatigue symptoms occurring at this time. She has been attempting to adhere to dietary and lifestyle modifications such as increasing exercise regimen. She is currently taking Bumex 2 mg as well as Spironolactone 100 mg every day. Denies any prominent peripheral edema or ascites buildup. She reports prominent RUQ pain with associated nausea. She continues Zofran PRN for nausea management. She was slated to be evaluated by [facility] for transplant consideration. She was deemed non-eligible for transplant at this time. Labs performed 10/17/24: A/G Ratio: 1.0 Albumin: 3.5 Alkaline Phosphatase: 186 (H) ALT: 29 Anion Gap: 5 AST: 55 (H) BUN: 14 BUN/Creatinine Ratio: 17.50 Calcium: 9.0 Chloride: 105 Carbon Dioxide, Total: 29 Creatinine: 0.80 eGFR: 83.3 Globulin, Total: 3.5 Glucose: 51 (L) Potassium: 3.8 Sodium: 139 Total Bilirubin: 1.7 (H) Total Protein: 7.0 Ferritin: 290.0 Folate: 20.6 IRON: 148 TIBC: 259 Transferrin Saturation: 57 COPPER: 76 (L) Haptoglobin: <30.0 (L) Hemoglobin: 14.7 Platelets: 106 (L). No recent abdominal imaging performed for liver surveillance. She continues Xifaxan 550 mg BID. Has not been using lactulose as often given no breakthrough HE symptoms. Some presenting constipation at this time, therefore she has considered resuming this regimen. 05/18/2024: 53 year old female returns to clinic for scheduled follow up visit of chronic liver disease. She reports recently following with [facility] and reports that her MELD score has decreased. She reports continued symptoms of fatigue at this time. She inquires about a living donor program. She underwent labs on 04/28/24: Albumin: 3.7 Alkaline Phosphatase: 179 (H) ALT: 30 Anion Gap: 6 AST: 53 (H) Bilirubin, Direct: 0.4 (H) BUN: 15 BUN/Creatinine Ratio: 18.07 Calcium: 9.6 Chloride: 105 Carbon Dioxide, Total: 28 Creatinine: 0.83 eGFR: 80.2 Glucose: 117 (H) Potassium: 3.6 Sodium:139 Total Bilirubin: 1.5 (H) Total Protein: 7.3 AFP Tumor Marker: 6.5 Hemoglobin: 14.9 Platelets: 93 (L) INR: 1.22 (H) Protime: 12.9 (H). US Liver performed 04/28/2024 showed liver demonstrates a nodular, coarsened echotexture without intrahepatic biliary dilatation. No masses are visualized. The main portal vein, hepatic veins and hepatic artery are patent with correct direction of flow. 02/10/2024: 53 year old female returns to clinic for scheduled follow up visit of cirrhosis. She reports that PCP has recently referred her to GI. She underwent lab evaluation on 01/25/24: A/G Ratio: 0.9 Albumin: 3.7 Alkaline Phosphatase: 187 (H) ALT: 38 Anion Gap: 6 AST: 59 (H) BUN: 22 (H) BUN/Creatinine Ratio: 22.00 (H) Calcium: 9.9 Chloride: 103 Carbon Dioxide, Total: 27 Creatinine: 1.00 eGFR: 64.0 Globulin, Total: 4.3 Glucose: 137 (H) Potassium: 3.1 (L) Sodium: 136 Total Bilirubin: 2.2 (H) Total Protein: 8.0 Ammonia: 27 Hemoglobin: 15.9 (H) Platelets: 141 INR: 1.32 (H) Protime: 13.9 (H). CT performed 10/24/2023 showed Mild nodular contour of the hepatic surface. Cirrhosis cannot be excluded. Correlate with LFTs. Status post cholecystectomy. Moderate splenomegaly. She continues Xifaxan 550 mg BID for management of HE symptoms. Uses Lactulose PRN. Denies prominent breakthrough. Wasprescrribed Bentyl PRN for abdominal pain by ED physician. She is having some persistent nausea andvomiting.Continues Ozempic and reports trying to hold this medication for 1 month, but reports thatsymptoms persisted even while off this medication. 05/24/2023: 52 year old female returns to clinic for scheduled follow up visit. She reports doing well overall at this time. She mentions the recent presentation of craving ice. She reports normal CBC and Iron levels despite this craving. Most recent labs performed 03/16/23: A/G Ratio: 0.7 Albumin:3.0 (L) Alkaline Phosphatase: 161 (H) ALT: 25 Anion Gap: 12 AST: 33 BUN: 10 BUN/Creatinine Ratio: 8.33 (L) Calcium: 9.3 Chloride: 107 Carbon Dioxide, Total: 22 Creatinine: 1.20 (H) eGFR: 51.7 (L) Globulin, Total: 4.1 Glucose: 209 (H) Potassium: 3.3 (L) Sodium: 141 Total Bilirubin: 0.9 Total Protein: 7.1 Folate: >20.0 (H) Ammonia: 49 (H) Hemoglobin: 13.2 Platelets: 117 (L). No recent abdominal imaging to assess liver. 11/19/2022: 52 year old female presents to clinic for scheduled follow up visit of inpatient admission and endoscopies. Immediately following last visit, patient was admitted for observation of severely low blood counts and increased fluid buildup. Patient had colonoscopy and EGD performed inpatient. Hemoglobin has rebounded well, most recently resulted at 11. She continues Xifaxan and denies anypertinent episodes of confusion. She does report some memory loss and continues to incorporate Lactulose PRN. Labs performed 10/29/22 A/G Ratio: <1.0 Albumin: 3.1 (L) Alkaline Phosphatase: 108 ALT: 33 Anion Gap: 2 (L) AST: 36 BUN: 34 (H) BUN/Creatinine Ratio: 26.15 (H) Calcium: 9.5 Chloride: 110(H) CO2: 26 Creatinine: 1.30 (H) eGFR: 47.0 (L) Globulin, Total: 4.2 Glucose: 154 (H) Potassium: 5.0 Sodium: 138 Total Bilirubin: 0.4 Total Protein: 7.3 Platelets 127 HgB 11. Most recent abdominal imaging performed 07/23/2022: Findings most compatible with changes of hepatic cirrhosis and portal venous hypertension. There is associated small volume abdominal/pelvic ascites and diffuse mesenteric edema. Small right-sided pleural effusion. Colonoscopy performed 07/31/2022 showed perianal and digital rectal examinations were normal. Two sessile polyps were found in the ascending colon. The polyps were 3 to 4 mm in size. These polyps were removed. Multiple small-mouthed diverticula were found in the sigmoid colon. Non-bleeding internal hemorrhoids were found during retroflexion. The hemorrhoids were Grade I. Ascending colon polypectomy: Tubular adenoma without high-grade dysplasia. EGD performed 07/31/2022 showed larynx was normal. The examined esophagus was normal. Mild gastric antral vascular ectasia without bleeding was present in the gastric antrum. Coagulation for bleeding prevention using argon plasma was successful. The examined duodenum was normal. 07/23/2022: 51 year old female wit hx of cirrhosis presents to clinic today for scheduled follow upof inpatient admission. On 07/17, patient presented to ED with complaint of abdominal pain. She reported her abdominal pain started around a week and a half prior. She stated that she woke up that morning with worsening R side abdominal pain and tightness. She also complained of SOA and abdominal sw elling. CT scan showed morphologic changes of cirrhosis. No appreciable focal hepatic abnormality. Mesenteric edema and small volume ascites. Anasarca. Splenomegaly. Labs showed as follows: Albumin: 3.3 (L) Alkaline Phosphatase: 94 ALT: 26 Anion Gap: 6 AST: 40 (H) Bilirubin, Direct: 0.20 BUN: 13 BUN/Creatinine Ratio: 14.44 Calcium: 9.3 Chloride: 108 (H) CO2: 26 Creatinine: 0.90 eGFR: 73.8 Glucose: 61 (L) Potassium: 4.0 Sodium: 140 Total Bilirubin: 0.5 Total Protein: 7.3 BNP: 355.0 (H) Troponin,HS: 6.8 Auto WBC: 4.3 Hematocrit: 24.4 (L) Hemoglobin: 7.9 (L) MCH: 26.5 MCHC: 32.3 (L) MCV: 82.1 MPV: 8.2 Platelets: 131 RBC: 2.97 (L) RDW: 14.9 INR: 1.20 (H) Protime: 12.5 (H). Patient was subsequen tly admitted to the hospital for evaluation. Condition improved and patient was discharged. Upon presentation for today's follow up visit, patient reports continued SOA and heaviness in her chest andabdomen. She states that paracentesis was not performed inpatient and she feels as if she has severe fluid buildup. She continues having increased BM of 10-11 per day, 4 already this morning. Social History: Social History Tobacco Use Smoking status: Former Current packs/day: 0.00 Average packs/day: 1 pack/day for 7.0 years (7.0 ttl pk-yrs) Types: Cigarettes Start date: 2014 Quit date: 2021 Years since quittin.3 Passive exposure: Past Smokeless tobacco: Never Vaping Use Vaping status: Never Used Substance Use Topics Alcohol use: Never Drug use: Never 07/24/2022 09/28/2023 SDOH Within the past 12 months, you worried that your food would run out before you got the money to buymore. Never true Within the past 12 months, the food you bought just didn't last and you didn't have money to get more. Never true Little interest or pleasure in doing things Not at all Not at all Feeling down, depressed, or hopeless Not at all Not at all Counseling given: Not Answered Review of Systems Constitutional: Positive for unexpected weight change (weight gain). Negative for appetite change. HENT: Negative for trouble swallowing. Gastrointestinal: Positive for abdominal distention, abdominal pain (RUQ), blood in stool (dark stools), constipation, nausea and vomiting. Negative for anal bleeding, diarrhea and rectal pain. Objective Visit Vitals BP 100/64 (BP Location: Right arm, Patient Position: Sitting, BP Cuff Size: Adult) Resp 16 Ht 5' 7 (1.702 m) Wt 166 lb 3.2 oz (75.4 kg) SpO2 99% BMI 26.03 kg/m?? Smoking Status Former BSA 1.87 m?? Physical Exam Constitutional: Appearance: Normal appearance. HENT: Head: Normocephalic and atraumatic. Eyes: Extraocular Movements: Extraocular movements intact. Conjunctiva/sclera: Conjunctivae normal. Pupils: Pupils are equal, round, and reactive to light. Cardiovascular: Rate and Rhythm: Normal rate and regular rhythm. Pulses: Normal pulses. Heart sounds: Normal heart sounds. Pulmonary: Effort: Pulmonary effort is normal. Breath sounds: Normal breath sounds. Abdominal: General: Abdomen is flat. Bowel sounds are normal. Palpations: Abdomen is soft. Musculoskeletal: General: Normal range of motion. Cervical back: Normal range of motion and neck supple. Skin: General: Skin is warm and dry. Coloration: Skin is not jaundiced. Neurological: General: No focal deficit present. Mental Status: She is alert and oriented to person, place, and time. Psychiatric: Mood and Affect: Mood normal. Behavior: Behavior normal. Thought Content: Thought content normal. Judgment: Judgment normal. Labs Reviewed - No data to display Assessment/Plan 1. Cirrhosis of liver with ascites, unspecified hepatic cirrhosis type 2. GAVE (gastric antral vascular ectasia) 3. Encephalopathy, hepatic 4. Iron deficiency anemia, unspecified iron deficiency anemia type Discussed results of chronic liver surveillance with patient at length. Continue hematology surveillance of anemia. Will schedule for repeat EGD with possible APC given history of GAVE likely contributing to anemic symptoms. Patient agreeable to this plan. I explained to the patient using laymen terms the indications, risks, benefits and other alternative of the endoscopy with argon plasma coagulation. The risks include but are not limited to bleeding,infection, perforation, and prolonged hospitalization. The patient understands these risks, and asked to proceed with the procedure. The medication list for this visit has been reviewed and reconciled. Reviewed by Edna Recinos (Registered Nurse) on 11/15/24 at 1044 and confirmed by Brayden Ferrer documented in this encounter Plan of Treatment Upcoming Encounters Date Type Department Care Team (Late st Contact Info) Description 01/22/2025 12:00 PM EDT Office Visit [facility] [address] [place] [address] Ben Knox MD [address] [place] [address] [place] [phone] 01/22/2025 2:00 PM EDT Office Visit [facility] [address] [facility] Floor [facility] [place] [place] [address] Suman Treviño MD [address] [place] [address]. KIKE REYNA [id number] 01/24/2025 1:00 PM EDT Office Visit [facility] [address] [place] [address] Demario Silva DO [address] [place] [id number] 02/15/2025 1:20 PM EDT Appointment [facility] D [address], [facility] [address] 02/27/2025 1:00 PM EDT Office Visit [facility] [address] [place] [address] Alexandr Zarate DPM [address] [facility] [place] [id number] 02/28/2025 1:45 PM EDT Office Visit [facility] [address] [place] [address] Lucy Christopher DO [address] [facility] [place] [id number] 03/19/2025 1:15 PM EDT Office Visit [facility] [address] [place] [address] 08/16/2025 10:00 AM EST Office Visit [facility] [address] [place] [address] Brigitte Mahoney NP [address] [facility] [place] [address] 12/13/2025 11:00 AM EDT Office Visit [facility] [address] [place] [address] Janice Woodward NP [address] [place] [id number] documented as of this encounter Visit Diagnoses Diagnosis Cirrhosis of liver with ascites, unspecified hepatic cirrhosis type- Primary GAVE (gastric antral vascular ectasia) Encephalopathy, hepatic Hepatic encephalopathy Iron deficiency anemia, unspecified iron deficiency anemia type documented in this encounter Additional Health Concerns Assessment Noted Time PHQ-9 Depression Total Score: 0 07/24/19 23 3:00 PM EST documented as of this encounter Care Teams Film Flat Inspector Relationship Specialty Start Date End Date Trevor Rolon DO [address] [facility] [address] [place] [address] PCP - General Lucy Christopher DO [address] [facility] [place] [address] Consulting Physician Oncology 10/17/24 documented as of this encounter
--- OUTSIDE RECORDS SUMMARY | 2024-11-15 11:30 | XMS_ITS | Encounter Summary ---
Author Organization [facility] nter Address [address] [place] [address] Care Team Providers Care Correction Worker Name Role Phone Trevor Rolon DO Primary Care Provider Lucy Christopher DO Unavailable Encounter Details Date Type Department Care Team (Latest Contact Info) Description 11/15/2024 11:30 AM EDT Clinical Support [facility] [address], 11th [place] [address] Psoriatic arthritis Social History Tobacco Use Types Packs/Day Years [...] week 07/24/2022 How often do you attend [facility] or hinduism services? More than 4 times per year 07/24/2022 Do you belong to any clubs o r organizations such as hoahaoism groups, unions, fraternal or athletic groups, or [...] Recorded Patient Health Questionnaire-2 Score 0 09/28/2023 [facility] - Occupational [...] place to sleep or slept in a prison (including now)? No 07/24/2022 Comments No Sex and Gender Information Value Date Recorded Sex Assigned at Female 09/17/2021 11:23 AM EST Legal Sex Female 11:23 AM EST Gender Identity Female 09/17/2021 11:23 AM EST Sexual Orientation Straight 09/17/2021 11 :23 AM EST documented as of this encounter Miscellaneous Notes * Result Encounter Note - Suman Treviño MD - 11/15/2024 11:30 AM EDT Labs stable, mild low C3/C4 likely related to her liver cirrhosis. Pt notified via Cash Check Card. Thanks documented in this encounter Plan of Treatment Upcoming Encounters Date Type Department Care Team (Late st Contact Info) Description 01/22/2025 12:00 PM EDT Office Visit [facility] [address], 8th [place] [address] Ben Knox MD [address] [place] [address] 01/22/2025 2:00 PM EDT Office Visit [facility]UMAT[facility] [address], 8[address] Floor Clinic [facility] [place] [address] Suman Treviño MD [address] [place] [address] 01/24/2025 1:00 PM EDT Office Visit [facility] [address], [place] [address] Demario Silva DO [address] [facility] [place] [address] 02/15/2025 1:20 PM EDT Appointment [facility] MAMMOGRAPHY SERVICES BLDG D [address], Bld[place] [address] 02/27/2025 1:00 PM EDT Office Visit [facility] ORTHOPEDIC PODIATRY PRACTICE [address], [address] [place] [address] Alexandr Zarate, OLLIE [address] [place] [address] 02/28/2025 1:45 PM EDT Office Visit [facility] [address], 10th [place] [address] Lucy Christopher DO [address] [place] [address] 03/19/2025 1:15 PM EDT Office Visit [facility] GASTROENTEROLOGY [facility]ACT[facility] [address], 2nd [place] [address] 08/16/2025 10:00 AM EST Office Visit [facility] ENDOCRINOLOGY [facility] [address], [address] [place] [address] Brigitte Mahoney, CLAU [address] [place] [place] [address] 12/13/2025 11:00 AM EDT Office Visit [facility] [address], 7th Floor [place] [address] Janice Woodward, [employer] ANALYST [address] [place] [address] documented as of this encounter Procedures Procedure Name Priority Date/Time Associated Diagnosis Comments DSDNA ANTIBODY BY IFA, CRITHIDIA LUCILIAE Routine 11/15/2024 11:29 AM EDT Psoriatic arthritis ANTI-CCP ANTIBODIES, IGG & IGA, CRISTAL Routine 11/15/2024 11:29 AM EDT Psoriatic arthritis SJOGREN'S ANTIBODIES (SSA/SSB) Routine 11/15/2024 11:29 AM EDT Psoriatic arthritis ANTINUCLEAR ANTIBODIES, REFLEX TO TITER AND PATTERN Routine 11/15/2024 11:29 AM EDT Psoriatic arthritis ANTI-CASTELLON ANTIBODY Routine 11/15/2024 1 1:29 AM EDT Psoriatic arthritis ANTI-CAROLE 1 ANTIBODY, IGG Routine 11/15/2024 11:29 AM EDT Psoriatic arthritis C3 COMPLEMENT Routine 11/15/2024 11:29 AM EDT Psoriatic arthritis C4 COMPLEMENT Routine 11/15/2024 11:29 AM EDT Psoriatic arthritis CK Routine 11/15/2024 11:29 AM EDT Psoriatic arthritis documented in this encounter Results * (ABNORMAL) C3 complement (11/15/2024 11:29 AM EDT) C3 Complement 62(L) 87 - 200 mg/dL 11/15/2024 12:29 PM EDT [facility] Blood Venous blood specimen / Unknown Venipuncture / Unknown 11/15/2024 11:29 AM EDT 11/15/2024 12:02 PM EDT [facility] LABORATORY - 11/15/2024 12:29 PM EDT Please note possible changes in reference range and units reported due to change in methodology. us Suman Treviño MD LAB BLOOD ORDERABLES Final Res ult Performing Organization Address [facility] Co de Phone Number [facility] [address] [place] [address], [place] [phone] * (ABNORMAL) C4 complement (11/15/2024 11:29 AM EDT) C4 Complement 10(L) 19 - 52 mg/dL 11/15/2024 12:29 PM EDT [facility] Blood Venous blood specimen / Unknown Venipuncture / Unknown 11/15/2024 11:29 AM EDT 11/15/2024 12:02 PM EDT [facility] LABORATORY - 11/15/2024 12:29 PM EDT Please note possible changes in reference range and units reported due to change in methodology. us Suman Treviño MD LAB BLOOD ORDERABLES Final Res ult Performing Organization Address [facility] de Phone Number [facility] [address] [place] [address], [place] [phone] * CK (11/15/2024 11:29 AM EDT) Total CK 76 30 - 223 U/L 11/15/2024 12:29 PM EDT [facility] Blood Venous blood specimen / Unknown Venipuncture / Unknown 11/15/2024 11:29 AM EDT 11/15/2024 12:02 PM EDT [facility] LABORATORY - 11/15/2024 12:29 PM EDT Please note possible changes in reference range and units reported due to change in methodology. us Suman Treviño MD LAB BLOOD ORDERABLES Final Res ult [facility] [address] [place] [address], [place] [phone] * Antinuclear Abs, IFA (11/15/2024 11:29 AM EDT) Antinuclear Abs, IFA Negative 11/20/2024 10:07 AM EDT [facility] ([place]) Comment: Negative <1:80 Borderline 1:80 Positive >1:80 ICAP nomenclature: AC-0 For more information about Hep-2 cell patterns use ANApatterns.org, the official website for the International Consensus on Antinuclear Antibody (JEANNIE) Patterns (ICAP). Blood Venous blood specimen / Unknown Venipuncture / Unknown 11/15/2024 11:29 AM EDT 11/15/2024 12:03 PM EDT Narrative [facility] ([place]) - 11/20/2024 10:07 AM EDT Performed at: [address] [place] [address] [id number] Motorcycle Mechanic Apprentice: Raphael Edwards PhD, Phone: [phone] us Suman Treviño MD LAB BLOOD ORDERABLES Final Res ult [facility] NICHOLAS) [address] [place] [address], [place] [phone] * Anti-Carole 1 antibody, IgG (11/15/2024 11:29 AM EDT) Anti-Carole-1 <0.2 0.0 - 0.9 AI 11/16/2024 12:07 PM EDT [facility] ([employer]) Blood Venous blood specimen / Unknown Venipuncture / Unknown 11/15/2024 11:29 AM EDT 11/15/2024 12:03 PM EDT Narrative [facility] ([facility]) - 11/16/2024 12:07 PM EDT Performed at: 01 - [address] [id number] Motorcycle Mechanic Apprentice: Raphael Edwards PhD, Phone: [phone] us Suman Treviño MD LAB BLOOD ORDERABLES Final Res ult Performing Organization Address [facility] Co de Phone Number [facility] [employer]) [address] [place] [address], * Sjogren's Antibodies (11/15/2024 11:29 AM EDT) Sjogren's Anti-SS-A <0.2 0.0 - 0.9 AI 11/16/2024 12:07 PM EDT [facility] ([employer]) Sjorgren's Anti-SS-B <0.2 0.0 - 0.9 AI 11/16/2024 12:07 PM EDT [facility] ([employer]) Blood Venous blood specimen / Unknown Venipuncture / Unknown 11/15/2024 11:29 AM EDT 11/15/2024 12:03 PM EDT Narrative [facility] ([employer]) - 11/16/2024 12:07 PM EDT Performed at: - [address] [id number] Motorcycle Mechanic Apprentice: Raphael Edwards PhD, Phone: [phone] us Suman Treviño MD LAB BLOOD ORDERABLES Final Res ult Performing Organization Address City/[facility]/ZIP Co de Phone Number [facility] [employer]) [address] [place] [address], * Anti-Castellon antibody (11/15/2024 11:29 AM EDT) Castellon Abs <0.2 0.0 - 0.9 AI 11/16/2024 12:07 PM EDT [facility] ([employer]) Blood Venous blood specimen / Unknown Venipuncture / Unknown 11/15/2024 11:29 AM EDT 11/15/2024 12:03 PM EDT Narrative [facility] ([employer]) - 11/16/2024 12:07 PM EDT Performed at: 01 - [address] [id number] Motorcycle Mechanic Apprentice: Raphael Edwards PhD, Phone: [phone] us Suman Treviño MD LAB BLOOD ORDERABLES Final Res ult Performing Organization Address [facility]/ZIP Co de Phone Number [facility] [place]) [address] [place] [address], * DSDNA ANTIBODY BY IFA, CRITHIDIA LUCILIAE (11/15/2024 11:29 AM EDT) dsDNA Crithidia luciliae IFA Negative Negative 11/17/2024 10:07 AM EDT [facility] ([place]) Blood Venous blood specimen / Unknown Venipuncture / Unknown 11/15/2024 11:29 AM EDT 11/15/2024 12:03 PM EDT Narrative [facility] ([place]) - 11/17/2024 10:07 AM EDT Performed at: - [address] [id number] Motorcycle Mechanic Apprentice: Raphael Edwards PhD, Phone: [phone] us Suman Treviño MD LAB BLOOD ORDERABLES Final Res ult Performing Organization Address City/[facility]/ZIP Co de Phone Number [facility] [place]) [address] [place] [address], * Anti-CCP Antibodies, IgG & IgA, CRISTAL (11/15/2024 11:29 AM EDT) CCP IgG/IgA Abs 9 0 - 19 units 11/16/2024 3:07 PM EDT [facility] ([place]) Comment: Negative <20 Weak positive 20 - 39 Moderate positive 40 - 59 Strong positive >59 Blood Venous blood specimen / Unknown Venipuncture / Unknown 11/15/2024 11:29 AM EDT 11/15/2024 12:03 PM EDT Narrative [facility] ([place]) - 11/16/2024 3:07 PM EDT Performed at: 01 - [facility] [address], [place], [place] [id number] Motorcycle Mechanic Apprentice: Raphael Edwards PhD, Phone: [phone] us Suman Treviño MD LAB BLOOD ORDERABLES Final Res ult [facility] NICHOLAS) [address] [place] [address], documented in this encounter Visit Diagnoses Diagnosis Psoriatic arthritis Psoriatic arthropathy documented in this encounter Additional Health Concerns Assessment Noted Time PHQ-9 Depression Total Score: 0 07/24/19 23 3:00 PM EST documented as of this encounter Care Teams Correction Worker Relationship Specialty Start Date End Date Trevor Rolon DO [address] [facility] [address] [place] [address] PCP - General Lucy Christopher DO [address] [facility] [address] [facility] [place] [address] Consulting Physician Oncology 10/17/24 documented as of this encounter
--- OUTSIDE RECORDS SUMMARY | 2024-11-15 13:00 | XMS_ITS | Encounter Summary ---
Author Organization [facility] nter Address [address] [place] [address] Care Team Providers Care Configuration Management Architect Name Role Phone Trevor Rolon DO Primary Care Provider Lucy Christopher DO Unavailable Reason for Visit * Imaging (Routine) - Closed Specialty Diagnoses / Procedures Referred By Truong bella Referred To Contact Cardiology Diagnoses Peripheral vascular disease Procedures US venous LE bilateral doppler Vascular US lower extremity venous duplex bilateral Mary Cobos NP [address] [place] [address] Phone: tel: fax: [facility] [address] 1st [place] [address] Phone: tel: fax: Referral ID Status Reason Start Date Expiration Date V isits Requested Visits Authorized [id number] Closed Perform Procedure 09/14/2024 09/14/2025 1 1 Encounter Details Date Type Department Care Team (Latest Contact Info) Description 11/15/2024 1:00 PM EDT - 11/15/2024 1:26 PM EDT Hospital Encounter [facility] [address] 2nd Floor [place] [address] Discharge Disposition: Home or Self Care Social History Tobacco Use Types Packs/Day Years Used Date Smoking Tobacco: Former Cigarettes 1 7 2 015 2021 Passive Smoke Exposure: Past Smokeless Tobacco: [...] 07/24/2022 How often do you attend chur or anabaptist services? More than 4 times per year 07/24/2022 Do you belong to any clubs o r organizations such as catholic groups, unions, fraternal or athletic groups, or [...] Recorded Patient Health Questionnaire-2 Score 0 09/28/2023 [facility] Occupational Stress Questionnaire Answer [...] place to sleep or slept in a care home (including now)? No 07/24/2022 Comments No Sex and Gender Information Value Date Recorded Sex Assigned at Female 09/17/2021 11:23 AM EST Legal Sex Female 11:23 AM EST Gender Identity Female 09/17/2021 11:23 AM EST Sexual Orientation Straight 09/17/2021 11 :23 AM EST documented as of this encounter Medications at Time of Discharge bumetanide (Bumex) 1 MG tablet Take 2 tablets (2 mg) by mouth in the morning. busPIRone (Buspar) 7.5 MG tablet take 1 tablet by mouth two times a day as needed for anxiety Continuous Glucose Sensor (Dexcom G7 Sensor) miscIndications:Type 2 diabetes mellitus with hyperglycemia, with long-term current use of insulin 1 each q10 days. Use every 10 days 3 each 11 08/16/2024 desvenlafaxine (Pristiq) 50 MG 24 hr tablet Take 1 tablet (50 mg) by mouth at bedtime. Do not crush, chew, or split. Diclofenac Sodium (Voltaren) 1 % gel Apply to affected area BID PRN 100 g 2 09/28/2023 empagliflozin (Jardiance) 25 MG Take 1 tablet (25 mg) by mouth in the morning. 30 tablet 11 08/16/2024 ergocalciferol (Vitamin D-2) 1.25 MG (49580 UT) capsule Take 1 capsule (1.25 mg) by mouth 1 (one) time per week. FeroSul 325 (65 Fe) MG tablet Take 1 tablet (325 mg) by mouth in the morning. 04/27/2023 glucose blood (OneTouch Verio) test stripIndications:E11 .65 Use 3 per day. Code E11.65 100 each 11 10/19/2024 hydrOXYzine HCl (Atarax) 25 MG tablet Take 1 tablet (25 mg) by mouth if needed in the morning, at noon, and at bedtime for itching. insulin aspart (NovoLOG FLEXPEN) 100 UNIT/ML penIndications:Type 2 diabetes mellitus with hyperglycemia, with long-term current use of insulin Take 5 units at breakfast, lunch, and supper if premeal BS >150. Max daily dose 50 units 15 mL 09/01/2024 Insulin Pen Needle (Pen [place]) 32G X 4 MM miscIndications:Type 2 diabetes mellitus with hyperglycemia, with long-term current use of insulin Use 4 per day 100 each 3 09/01/2024 LACTULOSE PO Take by mouth in the morning. lansoprazole (Prevacid) [address] capsule Take 1 capsule (30 mg) by mouth before breakfast. Do not crush or chew. Lantus SoloStar 100 UNIT/ML pen Take 20 units daily. Titrate to target glucose. Max daily dose 50 units. 15 mL 3 09/05/2024 lidocaine (Lidoderm) 5 % patch Apply 1 patch topically if needed each day for mild pain (1-4) or moderate pain (5-7). 01/07/2023 Lifitegrast (Xiidra) 5 % solutionIndications: Keratoconjunctivitis sicca of both eyes not specified as Sjogren's INSTILL 1 DROP IN EACH EYE TWO TIMES A DAY 180 each 4 10/01/2023 lisinopril 2.5 MG tablet Take 1 tablet (2.5 mg) by mouth in the morning. 05/11/2024 ondansetron ODT (Zofran-ODT) 8 MG disintegrating tablet Take 4 mg by mouth every 8 (eight) hours if needed. 10/18/2024 potassium chloride CR (Klor-Con M20) 20 MEQ ER tablet Take 1 tablet (20 mEq) by mouth in the morning and 1 tablet (20 mEq) in the evening. 08/04/2022 promethazine (Phenergan) 25 MG tablet if needed. rOPINIRole (Requip) 1 MG tablet Take 1 tablet (1 mg) by mouth in the morning, at noon, in the evening, and at bedtime. Semaglutide, 1 MG/DOSE, (Ozempic, 1 MG/DOSE,) 4 MG/3ML solution pen-injector Inject 1 mg under the skin 1 (one) time per week. Take 1 mg each week 3 mL 11 08/16/2024 simvastatin (Zocor) 20 MG tablet Take 1 tablet (20 mg) by mouth at bedtime. spironolactone (Aldactone) 100 MG tablet Take 1 tablet (100 mg) by mouth in the morning. Xifaxan 550 MG tabletIndications:En cephalopathy, hepatic TAKE 1 Tablet BY MOUTH EVERY MORNING AND AT BEDTIME 60 tablet 2 07/11/2024 metoprolol succinate XL (Toprol-XL) 200 MG 24 hr tablet Take 50 mg by mouth in the morning. 04/13/2024 Rimegepant Sulfate (Nurtec) 75 MG tablet dispersibleIndicatio ns:Migraine Take 1 tab PO at the onset of a migraine. Do not exceed more than 1 tab in 24 hours. 8 tablet 5 07/17/2024 documented as of this encounter Plan of Treatment Upcoming Encounters Date Type Department Care Team (Late st Contact Info) Description 01/22/2025 12:00 PM EDT Office Visit [facility] NEUROLOGY PRACTICE [address] 8[address] Floor [place] [phone] Ben Knox MD [address] [place] [address] [place] [phone] 01/22/2025 2:00 PM EDT Office Visit [facility] RHEUMATOLOGY PRACTICE [address] [place] [address] Suman Treviño MD [address] [place] [address]. [place] [address] 01/24/2025 1:00 PM EDT Office Visit [facility] SLEEP LAB PRACTICE [address] [place] [phone] Demario Silva DO [address] [place] [address] 02/15/2025 1:20 PM EDT Appointment [facility] MAMMOGRAPHY SERVICES [facility] D [address] [facility] D [place] [phone] 02/27/2025 1:00 PM EDT Office Visit [facility] ORTHOPEDIC PODIATRY PRACTICE [address] 6th [place] [address] Alexandr Zarate DPM [address] [place] [phone] 02/28/2025 1:45 PM EDT Office Visit [facility] ONCOLOGY PRACTICE [address] 10[address] [place] [address] Lucy Christopher, [address] [place] [phone] 03/19/2025 1:15 PM EDT Office Visit [facility] GASTROENTEROLOGY PRACTICE [address], 2nd Floor [place] [address] 08/16/2025 10:00 AM EST Office Visit [facility] ENDOCRINOLOGY PRACTICE [address], 8th [place] [address] Brigitte Mahoney NP [address] [place] [address] 12/13/2025 11:00 AM EDT Office Visit [facility] OBGYN PRACTICE [address], 7th [place] [address] Janice Woodward NP [address] [place] [address] documented as of this encounter Procedures Procedure Name Priority Date/Time Associated Diagnosis Comments US VENOUS LE BILAT DOPPLER Routine 11/15/2024 2:30 PM EDT Peripheral vascular disease documented in this encounter Results * US venous LE bilateral doppler (11/15/2024 2:30 PM EDT) BSA 1.89 m2 [facility] RADIOLOGY SYSTEM Anatomical Region Laterality Modality Lower Extremities Ultrasound 11/15/2024 2:01 PM EDT Impressions 11/15/2024 2:42 PM EDT No evidence of deep venous thrombosis of the left lower extremity. RIGHT LOWER EXTREMITY Deep venous system was assessed from the level of the inguinal crease down to Rudy's canal. The deep venous system was compressible throughout its course. There is no intraluminal thrombus formation, or abnormal venous Doppler signal. Strong augmentation with compression of the calf was noted. IMPRESSION: No evidence of deep venous thrombosis of the right lower extremity. Electronically signed by: Alexsander Dsouza MD 11/15/2024 02:42 PM EDT RP Narrative 11/15/2024 2:42 PM EDT PROCEDURE: US LOWER EXTREMITY VEINS BILATERAL: 11/15/2024 CLINICAL INFORMATION: weakness, coldness, numbness LEFT LOWER EXTREMITY Deep venous system was assessed from the level of the inguinal crease down to Rudy's canal. The deep venous system was compressible throughout its course. There is no intraluminal thrombus formation, or abnormal venous Doppler signal. Strong augmentation with compression of the calf was noted. Procedure Note Alexsander Dsouza MD - 11/15/2024 PROCEDURE: US LOWER EXTREMITY VEINS BILATERAL: 11/15/2024 CLINICAL INFORMATION: weakness, coldness, numbness LEFT LOWER EXTREMITY Deep venous system was assessed from the level of the inguinal crease downto Rudy's canal. The deep venous system was compressible throughout its course. There is nointraluminal thrombus formation, or abnormal venous Doppler signal. Strongaugmentation with compression of the calf was noted. IMPRESSION: No evidence of deep venous thrombosis of the left lower extremity. RIGHT LOWER EXTREMITY Deep venous system was assessed from the level of the inguinal crease downto Rudy's canal. The deep venous system was compressible throughout its course. There is nointraluminal thrombus formation, or abnormal venous Doppler signal. Strongaugmentation with compression of the calf was noted. IMPRESSION: No evidence of deep venous thrombosis of the right lowerextremity. Electronically signed by: Alexsander Dsouza MD 11/15/2024 02:42 PM EDT RPWorkstation: [id number] us Mary Cobos CAR REPOSSESSOR IMG US PROCEDURES Fi nal Result documented in this encounter Visit Diagnoses Not on filedocumented in this encounter Additional Health Concerns Assessment Noted Time PHQ-9 Depression Total Score: 0 07/24/19 23 3:00 PM EST documented as of this encounter Care Teams Configuration Management Architect Relationship Specialty Start Date End Date Trevor Rolon DO [address] [facility] [address] [place], [place] [phone] PCP - General Lucy Christopher DO [address] [place] [address] Consulting Physician Oncology 10/17/24 documented as of this encounter
--- OUTSIDE RECORDS SUMMARY | 2024-11-15 13:27 | XMS_ITS | Encounter Summary ---
Author Organization [facility] nter Address [address] [place] [address] Care Team Providers Care Face Cleaner Name Role Phone Trevor Rolon DO Primary Care Provider Lucy Christopher DO Unavailable Encounter Details Date Type Department Care Team (Latest Contact Info) Description 11/15/2024 1:27 PM EDT - 11/15/2024 1:43 PM EDT Hospital Encounter [facility] [address]nd [place] [id number] Psoriatic arthritis Discharge Disposition: Home or Self Care Social [...] How often do you attend chur or bahai services? More than 4 times per year 07/24/2022 Do you belong to any clubs o r organizations such as synagogue groups, unions, fraternal or athletic groups, or [...] Recorded Patient Health Questionnaire-2 Score 0 09/28/2023 [facility] - Occupational [...] money to buy more. Never true 07/24/19 Within the past 12 months, t he [...] place to sleep or slept in a penitentiary (including now)? No 07/24/2022 Comments No Sex [...] 11 08/16/2024 ergocalciferol (Vitamin D-2) 1.25 MG (41524 UT) capsule Take 1 capsule (1.25 mg) [...] daily dose 50 units 15 mL 3 09/01/2024 Insulin Pen Needle (Pen [place]) 32G X 4 MM miscIndications:Type 2 diabetes [...] in 24 hours. 8 tablet 5 07/17/2024 5 documented as of this encounter Miscellaneous Notes * Result Encounter Note - Suman Treviño MD - 11/15/2024 1:30 PM EDT X ray murtaza, feet and SI negative for IA changes. Pt notified via [employer]. Thanks documented in this encounter Plan of Treatment Upcoming Encounters Date Type Department Care Team (Late st Contact Info) Description 01/22/2025 12:00 PM EDT Office Visit [facility] [address] 8[address] [place] [address] Ben Knox MD [address] [place] [address] 01/22/2025 2:00 PM EDT Office Visit [facility] [address], 8th Floor [facility] [place] [address] Suman Treviño MD [address] [place] [address] 01/24/2025 1:00 PM EDT Office Visit [facility] [address], Tommy [facility] [place] [address] Demario Silva DO [address] [place] [id number] 02/15/2025 1:20 PM EDT Appointment [facility] [address], [place] [address] 02/27/2025 1:00 PM EDT Office Visit [facility] [address]th [place] [address] Alexandr Zarate, OLLIE [address] [facility] [place] [address] 02/28/2025 1:45 PM EDT Office Visit [facility] [address] 10[address] [place] [address] Lucy Christopher DO [address] [place] [id number] 03/19/2025 1:15 PM EDT Office Visit [facility] [address], 2nd [place] [address] 08/16/2025 10:00 AM EST Office Visit [facility] [address], 8th [place] [address] Brigitte Mahoney NP [address] [place] [address] 12/13/2025 11:00 AM EDT Office Visit [facility] [address], 7th [place] [address] Janice Woodward NP [address] [place] [address] documented as of this encounter Procedures Procedure Name Priority Date/Time Associated Diagnosis Comments XR FOOT 1-2 VIEWS BILATERAL Routine 11/15/2024 1:45 PM EDT Psoriatic arthritis XR HAND 1-2 VIEWS BILATERAL Routine 11/15/2024 1:45 PM EDT Psoriatic arthritis XR SACROILIAC JOINTS 3+ VIEWS Routine 11/15/2024 1:45 PM EDT Psoriatic arthritis documented in this encounter Results * XR sacroiliac joints [...] Dsouza MD 11/16/2024 12:58 PM EDT RPWorkstation: [id number] Suman Treviño MD IMG XR PROCEDURES Final [...] Dsouza MD 11/16/2024 01:00 PM EDT RPWorkstation: [id number] us Suman Treviño MD IMG XR PROCEDURES [...] Dsouza MD 11/16/2024 12:59 PM EDT RPWorkstation: [id number] us Suman Treviño MD IMG XR PROCEDURES Final Result documented in this encounter Visit Diagnoses Diagnosis Psoriatic arthritis Psoriatic arthropathy documented in this encounter Additional Health Concerns Assessment Noted Time PHQ-9 Depression Total Score: 0 07/24/19 23 3:00 PM EST documented as of this encounter Care Teams Face Cleaner Relationship Specialty Start Date End Date Trevor Rolon DO [address] [facility] [address] [place] [address] PCP - General Lucy Christopher DO [address] [facility] [place] [phone] Consulting Physician Oncology 10/17/24 documented as of this encounter
--- OUTSIDE RECORDS SUMMARY | 2024-11-15 13:44 | XMS_ITS | Encounter Summary ---
Author Organization [facility] nter Address [address] [place] [address] Care Team Providers Care Sap Director Name Role Phone Trevor Rolon DO Primary Care Provider Lucy Christopher DO Unavailable Reason for Referral * Imaging (Routine) - Closed Specialty Diagnoses / Procedures Referred By Truong bella Referred To Contact Cardiology Diagnoses PAD (peripheral artery disease) Procedures US arterial doppler bilateral lower ext Vascular US lower extremity arterial Doppler complete Ben Knox MD [address] [place] [address] Phone: tel: fax: [facility] [address] 1[address] [place] [address] Phone: tel: fax: Referral ID Status Reason Start Date Expiration Date V isits Requested Visits Authorized [id number] Closed Perform Procedure 11/15/2024 11/15/2025 1 1 Reason for Visit * Imaging (Routine) - Closed Specialty Diagnoses / Procedures Referred By Truong bella Referred To Contact Cardiology Diagnoses PAD (peripheral artery disease) Procedures US arterial doppler bilateral lower ext Vascular US lower extremity arterial Doppler complete Ben Knox MD [address] [place] [address] Phone: tel: fax: [facility] [address] 1st [place] [address] Phone: tel: fax: Referral ID Status Reason Start Date Expiration Date V isits Requested Visits Authorized [id number] Closed Perform Procedure 11/15/2024 11/15/2025 1 1 Encounter Details Date Type Department Care Team (Latest Contact Info) Description 11/15/2024 1:44 PM EDT - 11/15/2024 11:59 PM EDT Hospital Encounter [facility] [address] [place] [address] PAD (peripheral artery disease) Discharge Disposition: Home or Self Care Social History Tobacco Use Types Packs/Day Years Used Date Smoking Tobacco: Former Cigarettes 1 2 015 - 2021 Passive Smoke Exposure: [...] often do you attend chur ch or gnosticism services? More than 4 times per year 07/24/2022 Do you belong to any clubs o r organizations such as buddhism groups, unions, fraternal or athletic groups, or [...] Recorded Patient Health Questionnaire-2 Score 0 09/28/2023 [facility] - Occupational Stress Questionnaire Answer Date Recorded [...] place to sleep or slept in a alf (including now)? No 07/24/2022 Comments No Sex [...] 11 08/16/2024 ergocalciferol (Vitamin D-2) 1.25 MG (44038 UT) capsule Take 1 capsule (1.25 mg) [...] mL 3 09/01/2024 Insulin Pen Needle (Pen [place]) 32G X 4 MM miscIndications:Type 2 diabetes [...] 07/17/2024 5 documented as of this encounter Plan of Treatment Upcoming Encounters Date Type Department Care Team (Late st Contact Info) Description 01/22/2025 12:00 PM EDT Office Visit [facility] [address] 8[address] [place] [address] Ben Knox MD [address] [place] [address] [place] [address] 01/22/2025 2:00 PM EDT Office Visit [facility] [address] [place] [address] Suman Treviño MD [address] [place] [address]. [place] [address] 01/24/2025 1:00 PM EDT Office Visit [facility] [address] , Tommy [facility] [place] [address] Demario Silva DO [address] [place] [address] 02/15/2025 1:[address] [facility] [address], [facility] D [place] [phone] 02/27/2025 1:00 PM EDT Office Visit [facility] [address] 6th [place] [address] Alexandr Zarate, OLLIE [address] [facility] [place] [address] 02/28/2025 1:45 PM EDT Office Visit [facility] [address] 10[address] [place] [address] Lucy Christopher DO [address] [facility] [place] [phone] 03/19/2025 1:15 PM EDT Office Visit [facility] [address], 2nd [place] [address] 08/16/2025 10:00 AM EST Office Visit [facility] [address] 8th [place] [address] Brigitte Mahoney NP [address] [facility] [place] [address] 12/13/2025 11:00 AM EDT Office Visit [facility] [address], 7th [place] [address] Janice Woodward, CLAU [address] [place] [id number] documented as of this encounter Procedures Procedure Name Priority Date/Time Associated Diagnosis Comments US ARTERIAL DOPPLER ROD LOWER EXTR Routine 11/15/2024 2:30 PM EDT PAD (peripheral artery disease) documented in this encounter Results * US arterial doppler bilateral lower ext (11/15/2024 2:30 PM EDT) Anatomical Region Laterality Modality Lower Extremities Ultrasound 11/15/2024 2:01 PM EDT Impressions 11/15/2024 2:41 PM EDT No evidence of focal occlusion of the left lower extremity arterial structures. RIGHT LOWER EXTREMITY There is predominantly biphasic and triphasic waveforms throughout the right lower extremity that includes the common femoral artery, superficial femoral artery, popliteal artery, posterior tibial artery, and dorsalis pedis artery. There is no evidence of focal arterial occlusions. IMPRESSION: No evidence of focal occlusion of the right lower extremity arterial structures. Electronically signed by: Alexsander Dsouza MD 11/15/2024 02:41 PM EDT [facility] 11/15/2024 2:41 PM EDT PROCEDURE: US LOWER EXTREMITY ARTERIES BILATERAL: 11/15/2024 CLINICAL INFORMATION: PAD LEFT LOWER EXTREMITY There is predominantly biphasic and triphasic waveforms throughout the left lower extremity that includes the common femoral artery, superficial femoral artery, popliteal artery, posterior tibial artery, and dorsalis pedis artery. There is no evidence of focal arterial occlusions. Procedure Note Alexsander Dsouza MD - 11/15/2024 PROCEDURE: US LOWER EXTREMITY ARTERIES BILATERAL: 11/15/2024 CLINICAL INFORMATION: PAD LEFT LOWER EXTREMITY There is predominantly biphasic and triphasic waveforms throughout theleft lower extremity that includes the common femoral artery, superficialfemoral artery, popliteal artery, posterior tibial artery, and dorsalispedis artery. There is no evidence of focal arterial occlusions. IMPRESSION: No evidence of focal occlusion of the left lower extremity arterialstructures. RIGHT LOWER EXTREMITY There is predominantly biphasic and triphasic waveforms throughout theright lower extremity that includes the common femoral artery, superficialfemoral artery, popliteal artery, posterior tibial artery, and dorsalispedis artery. There is no evidence of focal arterial occlusions. IMPRESSION: No evidence of focal occlusion of the right lower extremityarterial structures. Electronically signed by: Alexsander Dsouza MD 11/15/2024 02:41 PM EDT RPWorkstation: [id number] us Ben Knox MD IMG US PROCEDURES Final Result documented in this encounter Visit Diagnoses Diagnosis PAD (peripheral artery disease) Unspecified peripheral vascular disease documented in this encounter Additional Health Concerns Assessment Noted Time PHQ-9 Depression Total Score: 0 07/24/19 23 3:00 PM EST documented as of this encounter Care Teams Sap Director Relationship Specialty Start Date End Date Trevor Rolon DO [address] [facility] [address] [place] [address] PCP - General Lucy Christopher DO [address] [place] [address] Road [facility] [place] [address] Consulting Physician Oncology 10/17/24 documented as of this encounter
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
--- OUTSIDE RECORDS SUMMARY | 2024-11-27 09:00 | XMS_ITS | Encounter Summary ---
Author Organization [facility] nter Address [address] [place] [address] Care Team Providers Care Jail Guard Name Role Phone Trevor Rolon DO Primary Care Provider Lucy Christopher DO Unavailable Reason for Visit * Reason Comments Foot Pain * Consultation (Routine) - Authorized Specialty Diagnoses / Procedures Referred By Truong bella Referred To Contact Podiatry Diagnoses Left foot pain Procedures [facility] OFFICE/OUTPATIENT NEW SF MDM 15 MINUTES OH OFFICE/OUTPATIENT NEW LOW MDM 30 MINUTES [place] OFFICE/OUTPATIENT NEW MODERATE MDM 45 MINUTES OH OFFICE/OUTPATIENT NEW HIGH MDM 60 MINUTES OH OFFICE/OUTPATIENT ESTABLISHED SF MDM 10 MIN [place] OFFICE/OUTPATIENT ESTABLISHED LOW MDM 20 MIN [place] OFFICE/OUTPATIENT ESTABLISHED MOD MDM 30 MIN [place] OFFICE/OUTPATIENT ESTABLISHED HIGH MDM 40 MIN Laquita Corral PA [address] [facility] [address] [place] [address] Phone: tel: fax: lAexandr Zarate DPM [address] [place] [address] Phone: tel: fax: Referral ID Status Reason Start Date Expiration Date Visits Requested Visits Authorized [id number] Authorized Specialty Services Required 10/27/2024 10/27/2025 1 3 Encounter Details Date Type Department Care Team (Latest Contact Info) Description 11/27/2024 9:00 AM EDT Office Visit [facility] [address] [place] [address] Alexandr Zarate, OLLIE [address] [place] [address] Diabetic polyneuropathy associated with type 2 diabetes mellitus; Achilles tendinitis of left lower extremity; Bilateral calcaneal spurs; Pain in both feet Social History Tobacco Use Types Packs/Day Years [...] often do you attend chur ch or oriental orthodox services? More than 4 times per year 07/24/2022 Do you belong to any clubs o r organizations such as taoism groups, unions, fraternal or athletic groups, or [...] Patient Health Questionnaire-2 Score 0 09/28/2023 [facility] - [...] place to sleep or slept in a fpc (including now)? No 07/24/2022 Comments No Sex and Gender Information Value Date Recorded Sex Assigned at Female 09/17/2021 11:23 AM EST Legal Sex Female 11:23 AM EST Gender Identity Female 09/17/2021 11:23 AM EST Sexual Orientation Straight 09/17/2021 11 :23 AM EST documented as of this encounter Last Filed Vital Signs Vital Sign Reading Time Taken Comments Blood Pressure 103/71 11/27/2024 9:12 AM EDT Pulse 73 11/27/2024 9:12 AM EDT Temperature - - Respiratory Rate - - Oxygen Saturation - - Inhaled Oxygen Concentration - - Weight 74.8 kg (165 lb) 11/27/2024 9:12 AM EDT Height 167.6 cm (5' 6 ) 11/27/2024 9:12 AM EDT Body Mass Index 26.63 11/27/2024 9:12 AM EDT documented in this encounter Progress Notes * Alexandr Zarate, OLLIE - 11/27/2024 9:00 AM EDT Subjective Patient ID: Trudy Peña is a 54 y.o. female who presents for Foot Pain. Patient is here today as a new patient to establish care over bilateral foot pain. Patient is ambulatory without assistance. Patient is diabetic, last A1c was 5, lbs was 116. Patient reports pain of 6/10. Patient describes pain as a burning, aching, and states that the more she walks on feet the more it feels like she is walking over nails. Patient states that she has tried multiple at home remedies for pain in bilateral feet, but cannot take anything OTC due to her having issues with her liver. Patient states that she does have an old injury to her left achilles tendon, she has a history of neuropathy. Patient also states that feet swell on her from time to time and she relives the swelling by elevating her feet. Patient states that he has a friend that sees other adult secondary education instructor at [facility] and gets the Qutenza wraps on her feet, and would like to see if she can get approved for that as well due to having neuropathy. Social History: Social History Socioeconomic History Marital status: Spouse name: Not on file Number of children: Not on file Years of education: Not on file Highest education level: Not on file Occupational History Not on file Tobacco Use Smoking status: Former Current packs/day: 0.00 Average packs/day: 1 pack/day for 7.0 years (7.0 ttl pk-yrs) Types: Cigarettes Start date: 2014 Quit date: 2021 Years since quittin.3 Passive exposure: Past Smokeless tobacco: Never Vaping Use Vaping status: Never Used Substance and Sexual Activity Alcohol use: Never Drug use: Never Sexual activity: Defer Other Topics Concern Not on file Social History Narrative Not on file Social Drivers of Health Financial Resource Strain: Low Risk (07/24/2022) Overall Financial Resource Strain (CARDIA) Difficulty of Paying Living Expenses: Not hard at all Food Insecurity: No Food Insecurity (07/24/2022) Hunger Vital Sign Worried About Running Out of Food in the Last Year: Never true Ran Out of Food in the Last Year: Never true Transportation Needs: No Transportation Needs (07/24/2022) PRAPARE - Transportation Lack of Transportation (Medical): No Lack of Transportation (Non-Medical): No Physical Activity: Inactive (07/23/2022) Exercise Vital Sign Days of Exercise per Week: 0 days Minutes of Exercise per Session: 0 min Stress: No Stress Concern Present (07/24/2022) [employer] [place] [facility] - Occupational Stress Questionnaire Feeling of Stress : Not at all Social Connections: Unknown (04/19/2023) Received from [facility] Family and Community Support Help with Day-to-Day Activities: Not on file Lonely or Isolated: Not on file Intimate Partner Violence: Unknown (04/19/2023) Received from [facility] Abuse Screen Unsafe at Home or Work/School: Not on file Feels Threatened by Someone?: Not on file Does Anyone Keep You from Contacting Others or Doint Things Outside the Home?: Not on file Physical Sign of Abuse Present: Not on file Housing Stability: Unknown (04/19/2023) Received from [facility] Housing Stability Current Living Arrangements: Not on file Potentially Unsafe Housing Conditions: Not on file Counseling given: Not Answered Review of Systems Constitutional: Negative. HENT: Negative. Eyes: Negative. Respiratory: Negative. Cardiovascular: Negative. Gastrointestinal: Negative. Endocrine: Negative. Genitourinary: Negative. Musculoskeletal: Negative. Skin: Negative. Allergic/Immunologic: Negative. Neurological: Negative. Hematological: Negative. Psychiatric/Behavioral: Negative. Objective Foot Exam General General Appearance: appears stated age and healthy Orientation: alert and oriented to person, place, and time Affect: appropriate Right Foot/Ankle Inspection and Palpation Ecchymosis: none Skin Exam: skin intact; Neurovascular Dorsalis pedis: 2+ Posterior tibial: 2+ Saphenous nerve sensation: diminished Tibial nerve sensation: diminished Superficial peroneal nerve sensation: diminished Deep peroneal nerve sensation: diminished Sural nerve sensation: diminished Achilles reflex: 2+ Babinski reflex: 2+ Muscle Strength Ankle dorsiflexion: 5 Ankle plantar flexion: 5 Ankle inversion: 5 Ankle eversion: 5 Great toe extension: 5 Great toe flexion: 5 Range of Motion Normal right ankle ROM Comments X-rays 3 views bilateral show calcaneal enthesophyte Left Foot/Ankle Inspection and Palpation Ecchymosis: none Skin Exam: skin intact; Neurovascular Dorsalis pedis: 2+ Posterior tibial: 2+ Saphenous nerve sensation: diminished Tibial nerve sensation: diminished Superficial peroneal nerve sensation: diminished Deep peroneal nerve sensation: diminished Sural nerve sensation: diminished Achilles reflex: 2+ Babinski reflex: 2+ Muscle Strength Ankle dorsiflexion: 5 Ankle plantar flexion: 5 Ankle inversion: 5 Ankle eversion: 5 Great toe extension: 5 Great toe flexion: 5 Range of Motion Normal left ankle ROM Comments Bilateral calcaneal enthesophyte/left greater than the right there is pain on palpation to the leftAchilles insertion with a small effusion Assessment/Plan 1. Diabetic polyneuropathy associated with type 2 diabetes mellitus -A comprehensive diabetic foot examination was performed today. We discussed the systemic risks of diabetes and the importance of proper glucose control. We discussed patients last Hemoglobin A1C andother lab results as well as their most recent blood sugar testing. We discussed the dangers of neuropathy or excessive pain. Patient was given a risk stratification of 2 and is recommend to follow up every 3 months. We discussed areas of high pressure on the patient's foot as well as the risks andoffloading solutions. We reviewed the proper foot care instructions such as: checking feet on a daily basis, keeping good hygiene, drying well between all toes, using lotion on dry skin, and wearing some form of foot protection at all times. We also discussed what to look for in areas of inflammation, hot spots , and ulcer formation. We did review patient's current medications and discussed the importance of taking all medications as prescribed. We discussed use of appropriate therapy. - Patient was previously taking Neurontin without improvement in her numbness. Patient is currentlytaking Lyrica as prescribed by Dr. Knox at [facility] neurology. -Discussed Qutenza treatment and will submit to insurance for approval. 2. Achilles tendinitis of left lower extremity -Patient was seen and evaluated in clinic. Discussed condition and treatment options. -Patient states she ruptured achilles tendon a few years ago, and was treated conservatively in a boot. -Patient currently uses Volterian gel and can continue to use Voltaren as needed for pain. -Discussed conservative and surgical options with the patient. Patient wishes to treat conservatively at this time. -Discussed stretching and icing for achilles tendon pain. Patient was given an HEP and was instructed on how to perform HEP. Discussed ordering Medrol Dosepak but patient does not want that at. -Patient is to follow up in 3 months. 3. Bilateral calcaneal spurs -See above 4. Pain in both feet -See above - Ambulatory referral/appointment with Podiatry - XR foot 3+ views bilateral; Future documented in this encounter Plan of Treatment Upcoming Encounters Date Type Department Care Team (Late st Contact Info) Description 01/22/2025 12:00 PM EDT Office Visit [facility] [address] [facility] [place] [address] Ben Knox MD [facility] [address] [facility] [place] [address] 01/22/2025 2:00 PM EDT Office Visit [facility]HEUMATOLOGY [facility]ACT[facility] [address] [place] [address] Suman Treviño MD [address] [facility] [place] [address] 01/24/2025 1:00 PM EDT Office Visit [facility] [address] Tommy [facility] [place] [place] [address] Demario Silva DO [address] [place] [address] 02/15/2025 1:20 PM EDT Appointment [facility] MAMMOGRAPHY SERVICES [facility] D [address], [facility] [place] [address] 02/27/2025 1:00 PM EDT Office Visit [facility] [address] [place] [address] Alexandr Zarate DPM [address] [facility] [place] [address] 02/28/2025 1:45 PM EDT Office Visit [facility]Y [facility] [address] [place] [address] Lucy Christopher, DO [address] [facility] [place] [address] 03/19/2025 1:15 PM EDT Office Visit [facility] GASTROENTEROLOGY [facility]ACT[facility] [address] [place] [address] 08/16/2025 10:00 AM EST Office Visit [facility] ENDOCRINOLOGY [facility]ACT[facility] [address] [place] [address] Brigitte Mahoney NP [address] [place] [address] 12/13/2025 11:00 AM EDT Office Visit [facility]YN [facility] [address] [place] [address] Janice Woodward, [employer] [address] [place] [address] Scheduled Orders Name Type Priority Associated Diagnoses Orde r Schedule XR foot 3+ views bilateral Imaging Routine Pain in both feet Expected: 11/27/2024, Expires: 11/27/2025 documented as of this encounter Visit Diagnoses Diagnosis Diabetic polyneuropathy associated with type 2 diabetes mellitus Achilles tendinitis of left lower extremity Bilateral calcaneal spurs Pain in both feet documented in this encounter Additional Health Concerns Assessment Noted Time PHQ-9 Depression Total Score: 0 07/24/19 23 3:00 PM EST documented as of this encounter Care Teams Jail Guard Relationship Specialty Start Date End Date Trevor Rolon DO [address] [facility] [address] [place] [id number] PCP - General Lucy Christopher DO [address] [place] [address] Consulting Physician Oncology 10/17/24 documented as of this encounter
--- OUTSIDE RECORDS SUMMARY | 2024-11-28 13:45 | XMS_ITS | Encounter Summary ---
Author Organization [facility] nter Address [address] [place] [address] Care Team Providers Care Contract Technical Writer Name Role Phone Trevor Rolon DO Primary Care Provider Lucy Christopher DO Unavailable Reason for Visit * Reason Comments Alloimmunization Follow-up * Consultation (Routine) - Authorized Specialty Diagnoses / Procedures Referred By Truong t Referred To Contact Hematology Diagnoses Monoclonal gammopathy Procedures ME OFFICE/OUTPATIENT NEW SF MDM 15 MINUTES ME OFFICE/OUTPATIENT NEW LOW MDM 30 MINUTES ME OFFICE/OUTPATIENT NEW MODERATE MDM 45 MINUTES ME OFFICE/OUTPATIENT NEW HIGH MDM 60 MINUTES ME OFFICE/OUTPATIENT ESTABLISHED SF MDM 10 MIN ME OFFICE/OUTPATIENT ESTABLISHED LOW MDM 20 MIN ME OFFICE/OUTPATIENT ESTABLISHED MOD MDM 30 MIN ME OFFICE/OUTPATIENT ESTABLISHED HIGH MDM 40 MIN Ben Knox MD [address] [place] [address] Phone: tel: fax: Referral ID Status Reason Start Date Expiration Date Visits Requested Visits Authorized [id number] Authorized Specialty Services Required 11/17/2024 11/17/2025 1 3 Encounter Details Date Type Department Care Team (Latest Contact Info) Description 11/28/2024 1:45 PM EDT Office Visit [facility] [address] [place] [address] Lucy Christopher, DO [address] [place] [address] Thrombocytopenia (Primary Dx); GOOD (nonalcoholic steatohepatitis); Cirrhosis of liver with ascites, unspecified hepatic cirrhosis type; Zinc deficiency; Copper deficiency Social History Tobacco Use Types Packs/Day Years Used Date Smoking Tobacco: Former Cigarettes 2021 Passive Smoke Exposure: Past Smokeless Tobacco: Never Tobacco Cessation:Counseling Given: Not Answered Alcohol Use Standard Drinks/Week Comments Never 0 [...] How often do you attend chur or rastafarian services? More than 4 times per year 07/24/2022 Do you belong to any clubs o r organizations such as voodoo groups, unions, fraternal or athletic groups, or [...] Recorded Patient Health Questionnaire-2 Score 0 09/28/2023 [facility] - Occupational [...] place to sleep or slept in a custodial (including now)? No 07/24/2022 Comments No Sex and Gender Information Value Date Recorded Sex Assigned at Female 09/17/2021 11:23 AM EST Legal Sex Female 11:23 AM EST Gender Identity Female 09/17/2021 11:23 AM EST Sexual Orientation Straight 09/17/2021 11 :23 AM EST documented as of this encounter Last Filed Vital Signs Vital Sign Reading Time Taken Comments Blood Pressure 100/68 11/28/2024 2:41 PM EDT Pulse 85 11/28/2024 2:41 PM EDT Temperature - - Respiratory Rate 18 11/28/2024 2:41 PM EDT Oxygen Saturation 99% 11/28/2024 2:41 PM EDT Inhaled Oxygen Concentration - - Weight 76 kg (167 lb 8 oz) 11/28/2024 2:41 PM ED T Height - - Body Mass Index 27.04 11/27/2024 9:12 AM EDT documented in this encounter Progress Notes * Lucy Christopher, - 11/28/2024 1:45 PM EDT [facility] Hematology and Oncology Initial Consultation Note Reason For Consult: thrombocytopenia History Of Present Illness Trudy Peña is a 54 y.o. female presenting with thrombocytopenia. She has a history of MASH cirrhosis including ascites and encephalopathy. She also has a history ofpsoriatic arthritis and was on Humira for 10 to 12 years. She has chronic nausea and vomiting. Has been diagnosed with gastroparesis in the past. She did not tolerate lactulose due to nausea and vomiting and takes rifaximin for hepatic encephalopathy. She has been seen by the transplant team at [facility] but was not considered for transplant due to her MELD score being low. She is establishing with [facility] transplant team as well. She has had chronic thrombocytopenia extending back to 2019. She has a history of iron deficiency anemia as well although her last hemoglobin was 14.7 g/dL. Her last EGD was in July 2022 at which time she was noted to have a normal esophagus and GAVE treated with APC. She had a colonoscopy and had diverticulosis, nonbleeding internal hemorrhoids, and two 3 to 4 mm polyps in the ascending colon. A liver ultrasound in April 2024 showed a cirrhotic liver morphology. A CT abdomen and pelvis from 2023 showed moderate splenomegaly. She denies any recent bleeding. At her initial visit on 02/2025 A CBC showed a white blood cell count of 7.6K with mild eosinophilia, normal hemoglobin, and decreased platelets of 106K. CMP was significant for a bilirubin of 1.7, mild increase in alk phos to 186, and AST of 55. Ferritin was normal at 290, iron was normal at 148,transferrin saturation was normal at 57%, LDH and reticulocytes were normal. B12 was greater than 1000, folate was normal at 20.6, haptoglobin was less than 30 but in the setting of advanced cirrhosis. Copper was slightly low at 76 and zinc was also slightly low at 41. Peripheral smear revealed macrocytic normochromic RBCs with anemia. Thrombocytopenia without platelet clumping. Normal total white blood cell count with mild eosinophilia. No granulocytic dysplasia or blasts identified. ROS: Review of Systems Constitutional: Positive for malaise/fatigue. Respiratory: Positive for shortness of breath. Musculoskeletal: Positive for back pain and neck pain. Gastrointestinal: Positive for nausea and vomiting. Neurological: Positive for dizziness and light-headedness. Psychiatric/Behavioral: Positive for depression. The patient is nervous/anxious. Past Medical History She has a past medical history of Anxiety, Arthritis, Chronic back pain, Cirrhosis, Depression, Diabetes mellitus, GERD (gastroesophageal reflux disease), Headache, Heart disease, High cholesterol, Hypertension, Joint pain, Memory loss, Numbness, Restless leg syndrome, Serratia infection, Sleep apnea, Spinal abscess, and Vasculitis. Surgical History She has a past surgical history that includes CT chest angiogram w and/or wo IV contrast (03/25/2020); Back surgery; Breast surgery (Bilateral); Cholecystectomy; Colonoscopy (2022); Esophagogastroduodenoscopy; Exploratory laparotomy; Cyst Removal (Left); Ovarian cyst removal (Right); Appendectomy; H ysterectomy; and Tubal ligation. Social History She reports that she quit smoking about 3 years ago. Her smoking use included cigarettes. She started smoking about 10 years ago. She has a 7 pack-year smoking history. She has been exposed to tobacco smoke. She has never used smokeless tobacco. She reports that she does not drink alcohol and does not use drugs. Allergies Iodine, Oxycodone, Percocet [oxycodone-acetaminophen], Povidone iodine, Sulfa drugs, Sulfacetamide,Vortioxetine, and Mastisol adhesive [wound dressing adhesive] Objective Vitals: 11/28/24 1441 BP: 100/68 Pulse: 85 Resp: 18 SpO2: 99% Physical Exam Constitutional: Appearance: Normal appearance. She is normal weight. Cardiovascular: Rate and Rhythm: Normal rate. Pulmonary: Effort: Pulmonary effort is normal. Abdominal: General: Abdomen is flat. Palpations: Abdomen is soft. Skin: General: Skin is warm and dry. Neurological: Mental Status: She is alert. Psychiatric: Mood and Affect: Mood normal. Behavior: Behavior normal. Thought Content: Thought content normal. Judgment: Judgment normal. ECOG Performance Status: 1 - Restricted in physically strenuous activity but ambulatory and able to carry out work of a light or sedentary nature, e.g., light house work, office work Labs: Lab Results Component Value Date WBC 5.4 11/15/2024 HGB 13.9 11/15/2024 HCT 40.6 11/15/2024 MCV 98.0 (H) 11/15/2024 RDW 13.5 11/15/2024 PLT 92 (L) 11/15/2024 NEUTROABS 3.50 11/15/2024 [id number] 1,031.0 (H) 11/15/2024 IRON 148 10/17/2024 TIBC 259 10/17/2024 FERRITIN 290.0 10/17/2024 RETICCTPCT 1.38 10/17/2024 Lab Results Component Value Date BUN 19 11/15/2024 CREAT 0.4 (L) 03/25/2020 NA 139 11/15/2024 K 3.7 11/15/2024 CL 105 11/15/2024 AST 55 (H) 11/15/2024 ALT 32 11/15/2024 Imaging: === 09/08/24 === XR CHEST 2 VIEWS - Impression - Impression: COPD without consolidation or effusion. Electronically signed by: Madeline Carney MD 09/12/2024 02:59 PM EST === 10/24/23 === CT ABDOMEN PELVIS WO IV CONTRAST - Impression - Mild nodular contour of the hepatic surface. Cirrhosis cannot be excluded. Correlate with LFTs. Status post cholecystectomy. Moderate splenomegaly. THIS DOCUMENT HAS BEEN ELECTRONICALLY SIGNED BY TAL BURDEN MD No images are attached to the encounter or orders placed in the encounter. I reviewed recent lab, imaging, and pathology results as available this visit and interpreted independently and discussed with the patient. 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 Suspect secondary to splenic sequestration as a resultof cirrhosis and portal hypertensive physiology. - Workup revealed both copper and zinc deficiency - Will start copper gluconate 2 mg daily - Will also start zinc 50 mg daily - She will continue to follow with gastroenterology for her history of cirrhosis. She is scheduled to see transplant hepatology at [facility] Labs reviewed with respect to bone marrow, renal and hepatic functions and discussed with patient. I reviewed recent lab, imaging, and pathology results as available this visit and interpreted independently and discussed with the patient. 45 minutes spent with patient with more than 50% of time [id number] counseling. Lucy Christopher DO Hematology/Oncology documented in this encounter Miscellaneous Notes * Patient Education - Cristian Bardales - 11/28/2024 2:47 PM EDT Images from the original note were not included. Patient Education Table of Contents Hypotension To view videos and all your education online visit, [email or web address] or scan this QR code with your smartphone. Access to this content will in one year. Hypotension As the heart beats, it forces blood through the body. Hypotension, commonly called low blood pressure, is when the force of blood pumping through the arteries is too weak. Arteries are blood vessels that carry blood from the heart throughout the body. Depending on the cause and severity, hypotension may be harmless (benign) or may cause serious problems (be critical). When your blood pressure is too low, you may not get enough blood to your brain or to the rest of your organs. This can cause weakness, light-headedness, a rapid heartbeat, and fainting. What are the causes? This condition may be caused by: Blood loss. Loss of body fluids (dehydration). Heart problems. Hormone (endocrine) problems. . Severe infection. Lack of certain nutrients. Severe allergic reactions (anaphylaxis). Certain medicines, such as blood pressure medicine or medicines that make the body lose excess fluids (diuretics). Sometimes, hypotension may be caused by not taking medicine as directed, such as taking too much of a certain medicine. What increases the risk? The following factors may make you more likely to develop this condition: Age. Risk increases as you get older. Having a condition that affects the heart or the central nervous system. What are the signs or symptoms? Common symptoms of this condition include: Weakness. Light-headedness. Dizziness. Blurred vision. Tiredness (fatigue). Rapid heartbeat. Fainting, in severe cases. How is this diagnosed? This condition is diagnosed based on: Your medical history. Your symptoms. Your blood pressure measurement. Your health care provider will check your blood pressure when you are: ? Lying down. ? Sitting. ? Standing. A blood pressure reading is recorded as two numbers, such as 120 over 80 (or 120/80). The first ( top ) number is called the systolic pressure. It is a measure of the pressure in your arteries as your heart beats. The second ( bottom ) number is called the diastolic pressure. It is a measure of the pressure in your arteries when your heart relaxes between beats. Blood pressure is measured in a unit called mm Hg. Healthy blood pressure for most adults is 120/80. If your blood pressure is below90/60, you may be diagnosed with hypotension. Other information or tests that may be used to diagnose hypotension include: Your other vital signs, such as your heart rate and temperature. Blood tests. Tilt table test. For this test, you will be safely secured to a table that moves you from a lying position to an upright position. Your heart rhythm and blood pressure will be monitored during the test. How is this treated? Treatment for this condition may include: Changing your diet. This may involve drinking more water or increasing your salt (sodium) intake with high-sodium foods. Taking medicines to raise your blood pressure. Changing the dosage of certain medicines you are taking that might be lowering your blood pressure. Wearing compression stockings. These stockings help to prevent blood clots and reduce swelling in your legs. In some cases, you may need to go to the hospital for: Fluid replacement. This means you will receive fluids through an IV. Blood replacement. This means you will receive donated blood through an IV (transfusion). Treating an infection or heart problems, if this applies. Monitoring. You may need to be monitored while medicines that you are taking wear off. Follow these instructions at home: Eating and drinking Drink enough fluid to keep your urine pale yellow. Eat a healthy diet, and follow instructions from your health care provider about eating or drinkingrestrictions. A healthy diet includes: ? Fresh fruits and vegetables. ? Whole grains. ? Lean meats. ? Low-fat dairy products. Increase your salt intake if told to do so. Do not add extra salt to your diet unless your health care provider tells you to do that. Eat frequent, small meals. Avoid standing up suddenly after eating. Medicines Take rvcb-srm-[id number] and prescription medicines only as told by your health care provider. ? Follow instructions from your health care provider about changing the dosage of your current medicines, if this applies. ? Do not stop or adjust any of your medicines on your own. General instructions Wear compression stockings as told by your health care provider. Get up slowly from lying down or sitting positions. This gives your blood pressure a chance to adjust. Avoid hot showers and excessive heat as directed by your health care provider. Return to your normal activities as told by your health care provider. Ask your health care provider what activities are safe for you. Do not use any products that contain nicotine or tobacco. These products include cigarettes, chewing tobacco, and vaping devices, such as e-cigarettes. If you need help quitting, ask your health careprovider. Keep all follow-up visits. This is important. Contact a health care provider if: You vomit. You have diarrhea. You have a fever for more than 2?3 days. You feel more thirsty than usual. You feel weak and tired. Get help right away if: You have chest pain. You have a fast or irregular heartbeat. You develop numbness in any part of your body. You cannot move your arms or your legs. You have trouble speaking. You become sweaty or feel light-headed. You faint. You feel short of breath. You have trouble staying awake. You feel confused. These symptoms may be an emergency. Get help right away. Call 911. Do not wait to see if the symptoms will go away. Do not drive yourself to the hospital. Summary Hypotension is when the force of blood pumping through the arteries is too weak. Hypotension may be harmless (benign) or may cause serious problems (be critical). Treatment for this condition may include changing your diet, changing your medicines, and wearing compression stockings. In some cases, you may need to go to the hospital for fluid or blood replacement. This information is not intended to replace advice given to you by your health care provider. Make sure you discuss any questions you have with your health care provider. Document Released: 2006-06-28 Document Updated: 2022-02-16 Document Reviewed: 2022-02-16 [employer] Patient Education ? 2024 [employer] documented in this encounter Plan of Treatment Upcoming Encounters Date Type Department Care Team (Late st Contact Info) Description 01/22/2025 12:00 PM EDT Office Visit [facility] [address] [place] [address], [address] [place] [phone] Ben Knox MD [address] [place] [address] [place] [address] 01/22/2025 2:00 PM EDT Office Visit [facility]UMAT[facility] [address] [place] [address], [address] [place] [address] Suman Treviño MD [address] [place] [address]. [facility] [place] [address] 01/24/2025 1:00 PM EDT Office Visit [facility] [address] [facility] [address] Demario Silva DO [address] [place], [place] [id number] 02/15/2025 1:20 PM EDT Appointment [facility] MAMMOGRAPHY SERVICES [facility] Ernie [address] [place] [address] [facility] [place] [address] 02/27/2025 1:00 PM EDT Office Visit [facility]EDIC [facility]RY [facility] [address] [place] [address] Alexandr Zarate DPM [address] [place] [address] 02/28/2025 1:45 PM EDT Office Visit [facility] [address] [place] [address] Lucy Christopher DO [address] [place] [address] 03/19/2025 1:15 PM EDT Office Visit [facility] GASTROENTEROLOGY [facility]ACT[facility] [address] [place] [address] 08/16/2025 10:00 AM EST Office Visit [facility] ENDOCRINOLOGY [facility] [address] [place] [id number] Brigitte Mahoney NP [address] [place] [address] 12/13/2025 11:00 AM EDT Office Visit [facility]YN [facility] [address] [place] [address] Janice Woodward, CLAU [address] [place] [address] documented as of this encounter Visit Diagnoses Diagnosis Thrombocytopenia- Primary Unspecified thrombocytopenia GOOD (nonalcoholic steatohepatitis) Other chronic nonalcoholic liver disease Cirrhosis of liver with ascites, unspecified hepatic cirrhosis type Zinc deficiency Mineral deficiency, not elsewhere classified Copper deficiency Disorders of copper metabolism documented in this encounter Additional Health Concerns Assessment Noted Time PHQ-9 Depression Total Score: 0 07/24/19 23 3:00 PM EST documented as of this encounter Care Teams Contract Technical Writer Relationship Specialty Start Date End Date Trevor Rolon DO [address] [facility] [address] [place] [address] PCP - General Lucy Christopher DO [address] [place] [address] [place] [address] Consulting Physician Oncology 10/17/24 documented as of this encounter
--- OUTSIDE RECORDS SUMMARY | 2024-12-12 14:15 | XMS_ITS | Encounter Summary ---
Author Organization [facility] nter Address [address] [place] [address] Care Team Providers Care Sheet Sewer Name Role Phone Trevor Rolon DO Primary Care Provider Lucy Christopher DO Unavailable Reason for Visit * Reason Comments Annual Exam 54 yo here for artemio valdovinos exam Last mammogram 02/15/24 RECOMMENDATION: Routine screening mammography is recommended in 1 yearACR BI-RADS: Category 2: Benign Finding(s) * Consultation (Routine) - Authorized Specialty Diagnoses / Procedures Referred By Contac t Referred To Contact Obstetrics and Gynecology Diagnoses Well woman exam with routine gynecological exam Procedures IN OFFICE/OUTPATIENT NEW SF MDM 15 MINUTES IN OFFICE/OUTPATIENT NEW LOW MDM 30 MINUTES IN OFFICE/OUTPATIENT NEW MODERATE MDM 45 MINUTES IN OFFICE/OUTPATIENT NEW HIGH MDM 60 MINUTES IN OFFICE/OUTPATIENT ESTABLISHED SF MDM 10 MIN IN OFFICE/OUTPATIENT ESTABLISHED LOW MDM 20 MIN IN OFFICE/OUTPATIENT ESTABLISHED MOD MDM 30 MIN IN OFFICE/OUTPATIENT ESTABLISHED HIGH MDM 40 MIN Laquita Corral PA [address] [facility] [address] [place] [address] Phone: tel: fax: Lupe Crisostomo DO [address] [place] [address] Phone: tel: fax: Referral ID Status Reason Start Date Expiration Date Visits Requested Visits Authorized [id number] Authorized Specialty Services Required 11/28/2024 11/28/2025 1 3 Encounter Details Date Type Department Care Team (Latest Contact Info) Description 12/12/2024 2:15 PM EDT Office Visit [facility] [address] 7th [place] [address] Ruby Hilton, CLAU [address] [place] [address] Well woman exam with routine gynecological exam (Primary Dx); Encounter for screening mammogram for malignant neoplasm of breast Social History Tobacco Use Types Packs/Day Years [...] week 07/24/2022 How often do you attend [facility] or jain services? More than 4 times per year 07/24/2022 Do you belong to any clubs o r organizations such as bahai groups, unions, fraternal or athletic groups, or [...] Recorded Patient Health Questionnaire-2 Score 0 09/28/2023 [facility] - Occupational Stress Questionnaire Answer Date Recorded [...] Sign Reading Time Taken Comments Blood Pressure 118/74 12/12/2024 12:33 PM EDT Pulse 93 12/12/2024 12:33 PM EDT Temperature - - Respiratory Rate - - Oxygen Saturation - - Inhaled Oxygen Concentration - - Weight 77.7 kg (171 lb 6.4 oz) 12/12/2024 12:33 PM EDT Height 170.2 cm (5' 7 ) 12/12/2024 12:33 PM EDT Body Mass Index 26.85 12/12/2024 12:33 PM EDT documented in this encounter Miscellaneous Notes * Patient Education - Diallo Mata MA - 12/12/2024 12:31 PM EDT Images from the original note were not included. Patient Education Table of Contents Pelvic Exam To view videos and all your education online visit, [email or web address] or scan this QR code with your smartphone. Access to this content will in one year. Pelvic Exam A pelvic exam is an exam of a woman's outer and inner genitals and reproductive organs. Pelvic exams are done to screen for health problems and to help prevent health problems from developing. A pelvic exam may be recommended to help explain or diagnose: Changes in your body that may be signs of cancer in the reproductive system. Inability to get (infertility). Cause of vaginal itching or burning. Abnormal vaginal discharge or bleeding. Problems with sexual function. Problems with urination. Problems with menstrual periods. Problems with the position of your pelvic organs due to weakening muscles (prolapse). Tell a health care provider about: Any allergies you have. All medicines you are taking, including vitamins, herbs, eye drops, creams, and svrs-brr-dssvipx medicines. Any problems you or family members have had with anesthetic medicines. Any bleeding problems you have. Any surgeries you have had. Any medical conditions you have. Whether you are or may be . What are the risks? This is a safe procedure. There are no known risks or complications of having this test. What happens before the procedure? Usually, a physical exam is done first. This may include: An exam of your breasts. Your health care provider may feel your breasts to check for abnormalities. An exam of your abdomen. Your health care provider may press on your abdomen to check for abnormalities. What happens during the procedure? Pelvic exams may vary among health care providers and hospitals. The following things usually take place during a pelvic exam: You will undress from the waist down. You will put on a gown or a wrap to cover yourself while you get ready for the exam. You will lie on your back on an exam table. You will place your feet into foot rests (stirrups) so that your legs are wide apart and your knees are bent. A drape will be placed over your abdomen and your legs. Your health care provider will wear gloves and examine your outer genitals to check for anything unusual. This includes your clitoris, urethra, vaginal opening, labia, and the skin between your vagina and your anus (perineum). Your health care provider will examine your inner genitals. To do this, a lubricated instrument (speculum) will be inserted into your vagina. The speculum will be widened to open the castañeda of your vagina. ? Your health care provider will examine your vagina and cervix. ? A Pap test, cervical biopsy, or cultures may be done as needed. ? After the internal exam is done, the speculum will be removed. Your health care provider will insert two fingers into your vagina to gently press against various organs. ? Your health care provider may use his or her other hand to gently press on your lower abdomen while doing this. A pelvic exam is usually painless, although it can cause mild discomfort. If you experience pain atany time during your pelvic exam, tell your health care provider right away. Depending on the purpose of your pelvic exam, your health care provider may perform: A Pap test. This is sometimes called a Pap smear. It is a screening test that is used to check for signs of cancer of the cervix. The test can also identify the presence of infection or precancerous changes. A cervical biopsy. This is the removal of a small sample of tissue from the cervix. The cervix is the lowest part of the uterus, which opens into the vagina ( canal). The tissue will be checked under a microscope. Other diagnostic tests that involve taking samples of tissue or fluid (cultures). What can I expect after the procedure? You may have very light bleeding, particularly if a biopsy or cultures were obtained. It is up to you to get the results of your procedure. Ask your health care provider, or the department that is doing the procedure, when your results will be ready. Summary A pelvic exam is an exam of a woman's outer and inner genitals and reproductive organs. A pelvic exam may be recommended to help explain or diagnose various problems with your pelvic organs. You may experience mild discomfort during a pelvic exam. This information is not intended to replace advice given to you by your health care provider. Make sure you discuss any questions you have with your health care provider. Document Released: 2003-09-18 Document Updated: 2022-03-11 Document Reviewed: 2021-09-26 [employer] Patient Education ? 2024 [employer] documented in this encounter Plan of Treatment Upcoming Encounters Date Type Department Care Team (Late st Contact Info) Description 01/22/2025 12:00 PM EDT Office Visit [facility] NEUROLOGY PRACT[facility] [address] 8[address] Floor [place] [address] Ben Knox MD [facility] [address] [facility] [place] [address] 01/22/2025 2:00 PM EDT Office Visit [facility] RHEUMATOLOGY PRACTICE [address] 8[address] Floor [place] [address] Suman Treviño MD [facility] [address] [facility]. [place] [id number] 01/24/2025 1:00 PM EDT Office Visit [facility] SLEEP LAB PRACTICE [address] [place] [address] Demario Silva DO [address] [place] [address] 02/15/2025 1:20 PM EDT Appointment [facility] MAMMOGRAPHY SERVICES [facility] D [address], [facility] [place] [address] 02/27/2025 1:00 PM EDT Office Visit [facility] ORTHOPEDIC PODIATRY PRACTICE [address] 6th [place] [address] Alexandr Zarate DPM [address] [place] [id number] 02/28/2025 1:45 PM EDT Office Visit [facility] [address] 10th [place] [address] Lucy Christopher DO [address] [place] [address] 03/19/2025 1:15 PM EDT Office Visit [facility] GASTROENTEROLOGY PRACTICE [address] 2nd [place] [address] 08/16/2025 10:00 AM EST Office Visit [facility] [address], 8th [place] [address] Brigitte Mahoney NP [address] [place] [address] 12/13/2025 11:00 AM EDT Office Visit [facility] OBGYN PRACTICE [address] 7th [place] [address] Ruby Hilton, CLAU [address] [place] [address] Scheduled Orders Name Type Priority Associated Diagnoses Orde r Schedule BI Screening mammogram bilateral w tomosynthesis Imaging Routine Encounter for screening mammogram for malignant neoplasm of breast Expected: 02/15/2025, Expires: 02/11/2026 documented as of this encounter Procedures Procedure Name Priority Date/Time Associated Diagnosis Comments PAP SMEAR Routine 12/12/2024 2:49 PM EDT Well woman exam with routine gynecological exam documented in this encounter Results * Pap Smear (12/12/2024 2:49 PM EDT) Pathologist [facility] [address] [place] [address] or [phone] Kp Dillon M.D., Arch Cushion Skiving Machine Operator PATIENT NAME [facility]ATORY NO. [id number] [place]. [id number] AGE SEX SSN CLIENT REF # [facility] 54 1970 F [id number] [place] [address] BY-PASS REQUESTING Lalo ATTENDING M.D. COPY TO. [facility], [facility] [place] [address] DATE COLLECTED DATE RECEIVED DATE REPORTED 12/12/2024 12/13/2024 12/14/2024 ThinPrep Pap with Hologic Genius Imaging DIAGNOSIS: Negative for intraepithelial lesion or malignancy Multiple factors can influence accuracy of Pap tests; therefore, screening at regular intervals is necessary for early cancer detection. SPECIMEN ADEQUACY: SATISFACTORY FOR EVALUATION SOURCE OF SPECIMEN: VAGINAL SLIDES: 1 CLINICAL HISTORY: Encounter for gynecological examination (general) (routine) without abnormal findings HPV HR-HPV POOL: Negative The Aptima HPV assay is an in vitro nucleic acid amplification test for the qualitative detection of E6/E7 viral messenger RNA from 14 high risk types of HPV in cervical specimens. The high risk HPV types detected include: 16, 18, 31, 33, 35, 39, 45, 51, 52, 56, 58, 59, 66, 68 BANK RUNNER: SDS, CT (ASCP) CPT CODES: 92423, 09716 12/14/2024 1:33 PM EDT [facility]OLOG[facility] Swab Vaginal structure / Unknown Non-blood Collection / Unknown 12/12/2024 2:49 PM EDT 12/13/2024 8:15 AM EDT Ruby Hilton OPERATIONS MANAGER [facility] CYTOLOGY ORDERABLES Final Result Performing Organization Address City/State/[facility] Co de Phone Number [facility] [address] [place] [address], documented in this encounter Visit Diagnoses Diagnosis Well woman exam with routine gynecological exam- Primary Routine gynecological examination Encounter for screening mammogram for malignant neoplasm of breast documented in this encounter Additional Health Concerns Assessment Noted Time PHQ-9 Depression Total Score: 0 07/24/19 23 3:00 PM EST documented as of this encounter Care Teams Sheet Sewer Relationship Specialty Start Date End Date Trevor Rolon DO [address] [facility] [address] [place] [address] PCP - General Lucy Christopher DO [address] [facility] [place] [address] Consulting Physician Oncology 10/17/24 documented as of this encounter
--- OUTSIDE RECORDS SUMMARY | 2024-12-14 12:20 | XMS_ITS | Encounter Summary ---
Author Organization [facility] nter Address [address] [place] [address] Care Team Providers Care Iron Launder Operator Name Role Phone Trevor Rolon DO Primary Care Provider Lucy Christopher DO Unavailable Encounter Details Date Type Department Care Team (Latest Contact Info) Description 12/14/2024 12:20 PM EDT - 12/14/2024 11:59 PM EDT Hospital Encounter [facility] [address], 3rd [place] [id number] Discharge Disposition: Home or Self Care Social [...] How often do you attend chur or religion services? More than 4 times per year 07/24/2022 Do you belong to any clubs o r organizations such as religious groups, unions, fraternal or athletic groups, or [...] Recorded Patient Health Questionnaire-2 Score 0 09/28/2023 [facility] Occupat ional Health - Occupational Stress [...] place to sleep or slept in a usp (including now)? No 07/24/2022 Comments No Sex [...] as needed for anxiety Continuous Glucose Sensor ([employer] G7 Sensor) miscIndications:Type 2 diabetes mellitus with hyperglycemia, with long-term current use of insulin 1 each q10 days. Use every 10 days 3 each 11 08/16/2024 6 Copper Gluconate 2 MG tablet Take 2 mg by mouth in the morning. 30 tablet 2 11/28/2024 desvenlafaxine (Pristiq) 50 MG 24 hr tablet Take 1 tablet (50 mg) by mouth at bedtime. Do not crush, chew, or split. Diclofenac Sodium (Voltaren) 1 % gel Apply to affected area BID PRN 100 g 2 09/28/2023 empagliflozin (Jardiance) 25 MG Take 1 tablet (25 mg) by mouth in the morning. 30 tablet 11 08/16/2024 ergocalciferol (Vitamin D-2) 1.25 MG (84924 UT) capsule Take 1 capsule (1.25 mg) by mouth 1 (one) time per week. FeroSul 325 (65 Fe) MG tablet Take 1 tablet (325 mg) by mouth in the morning. 04/27/2023 glucose blood ([employer] Frontieruch Verio) test stripIndications:E11 .65 Use 3 per [...] mL 3 09/01/2024 Insulin Pen Needle (Pen Cokato) 32G X 4 MM miscIndications:Type 2 diabetes [...] mg) by mouth in the morning. 05/11/2024 metoprolol succinate XL (Toprol-XL) 50 MG 24 hr tablet Take 1 tablet (50 mg) by mouth in the morning. Do not crush or chew. ondansetron ODT (Zofran-ODT) 8 MG disintegrating tablet Take 4 mg by mouth every 8 (eight) hours if needed. 10/18/2024 potassium chloride CR (Klor-Con M20) 20 MEQ ER tablet Take 1 tablet (20 mEq) by mouth in the morning and 1 tablet (20 mEq) in the evening. 08/04/2022 pregabalin (Lyrica) 25 MG capsuleIndications:P olyneuropathy due to secondary diabetes,Restless leg syndrome Take 1 capsule (25 mg) by mouth in the morning and at bedtime. 60 capsule 2 11/20/2024 promethazine (Phenergan) 25 MG tablet if needed. Rimegepant Sulfate (Nurtec) 75 MG tablet dispersibleIndicatio ns:Migraine Take 1 tab PO at the onset of a migraine. Do not exceed more than 1 tab in 24 hours. 8 tablet 5 11/20/2024 rOPINIRole (Requip) 1 MG tablet Take 1 [...] AND AT BEDTIME 60 tablet 2 07/11/2024 Zinc 50 MG tablet Take 1 tablet (50 mg) by mouth in the morning. 30 tablet 2 11/28/2024 documented as of this encounter Miscellaneous Notes * Preprocedure Instructions - Cecilia Castellon RN - 12/14/2024 1:15 PM EDT Please enter on the 3rd floor clinic building from the 3rd floor of the parking garage. Please feelfree to ask an employee for assistance. One person is allowed with the patient in Preop or Recoveryunless patient is under 18yrs of age or special needs patient. Each patient must have someone to drive him/her home when discharged. You may be sleepy, tired,or not your normal self. Please make arran gements for someone to help you at home. Instructions for Patient: Bring photo ID and insurance card to get registered You may shower the morning of or the night before, use underarm deodorant and brush your teeth, wear loose comfortable clothing Follow all instructions provided by physicians office Take buspar, hydroxyzine, prevacid, requip, xifaxan and metoprolol morning of procedure with water Patient Verbalizes Understanding of all above instructions given: Yes Timeout: Date/Time of Procedure: 12/15/2024 0945 Correct Person: Yes Correct Site: Yes Correct Procedure:Yes Cultural/Spiritual: Are There Cultural/Spiritual Practices That We Should Know About? No Date of Last Colonoscopy: 2022 * Patient Education - Cecilia Castellon RN - 12/14/2024 12:41 PM EDT Images from the original note were not included. Patient Education Table of Contents Upper Endoscopy, Adult, Care After To view videos and all your education online visit, [email or web address] or scan this QR code with your smartphone. Access to this content will in one year. Upper Endoscopy, Adult, Care After After the procedure, it is common to have a sore throat. It is also common to have: Mild stomach pain or discomfort. Bloating. Nausea. Follow these instructions at home: The instructions below may help you care for yourself at home. Your health care provider may give you more instructions. If you have questions, ask your health care provider. If you were given a sedative during the procedure, it can affect you for several hours. Do not drive or operate machinery until your health care provider says that it is safe. If you will be going home right after the procedure, plan to have a responsible adult: ? Take you home from the hospital or clinic. You will not be allowed to drive. ? Care for you for the time you are told. Follow instructions from your health care provider about what you may eat and drink. Return to your normal activities as told by your health care provider. Ask your health care provider what activities are safe for you. Take vlfi-nee-igtqelf and prescription medicines only as told by your health care provider. Contact a health care provider if you: Have a sore throat that lasts longer than one day. Have trouble swallowing. Have a fever. Get help right away if you: Vomit blood or your vomit looks like coffee grounds. Have bloody, black, or tarry stools. Have a very bad sore throat or you cannot swallow. Have difficulty breathing or very bad pain in your chest or abdomen. These symptoms may be an emergency. Get help right away. Call 911. Do not wait to see if the symptoms will go away. Do not drive yourself to the hospital. Summary After the procedure, it is common to have a sore throat, mild stomach discomfort, bloating, and nausea. If you were given a sedative during the procedure, it can affect you for several hours. Do not drive until your health care provider says that it is safe. Follow instructions from your health care provider about what you may eat and drink. Return to your normal activities as told by your health care provider. This information is not intended to replace advice given to you by your health care provider. Make sure you discuss any questions you have with your health care provider. Document Released: 2012-12-27 Document Updated: 2022-10-07 Document Reviewed: 2022-10-07 [email or web address] Patient Education ? 2024 [employer] documented in this encounter Plan of Treatment Upcoming Encounters Date Type Department Care Team (Late st Contact Info) Description 01/22/2025 12:00 PM EDT Office Visit [facility] NEUROLOGY PRACTICE [address] 8th [place] [address] Ben Knxo MD [address] [place] [address] 01/22/2025 2:00 PM EDT Office Visit [facility] RHEUMATOLOGY PRACTICE [address], 8th [place] [address] Suman Treviño MD [address] [place]. [place] [address] 01/24/2025 1:00 PM EDT Office Visit [facility] SLEEP LAB PRACTICE [address], [place] [address] Demario Silva DO [address] [place] [id number] 02/15/2025 1:20 PM EDT Appointment [facility] MAMMOGRAPHY SERVICES BLDG D [address], [place] [address] 02/27/2025 1:00 PM EDT Office Visit [facility] ORTHOPEDIC PODIATRY PRACTICE [address], 6th [place] [address] Alexandr Zarate DPM [address] [facility] [place] [id number] 02/28/2025 1:45 PM EDT Office Visit [facility] ONCOLOGY PRACTICE [address], 10th [place] [address] Lucy Christopher DO [address] B[address] [place] [id number] 03/19/2025 1:15 PM EDT Office Visit [facility] GASTROENTEROLOGY PRACTICE [address], 2nd [place] [address] 08/16/2025 10:00 AM EST Office Visit [facility] ENDOCRINOLOGY PRACTICE [address], 8th Floor [facility] [address] Brigitte Mahoney NP [address] [place] [address] 12/13/2025 11:00 AM EDT Office Visit [facility] [address], 7th Floor [place] [address] Janice Woodward, CLAU [address] [place] [facility] documented as of this encounter Visit Diagnoses Not on filedocumented in this encounter Additional Health Concerns Assessment Noted Time PHQ-9 Depression Total Score: 0 07/24/19 23 3:00 PM EST documented as of this encounter Care Teams Iron Launder Operator Relationship Specialty Start Date End Date Trevor Rolon DO [address] [facility] [address] [place] [address] PCP - General Lucy Christopher DO [address] [place] [address] Consulting Physician Oncology 10/17/24 documented as of this encounter
--- OUTSIDE RECORDS SUMMARY | 2024-12-15 09:49 | XMS_ITS | Encounter Summary ---
Author Organization [facility] Address [address] [place] [address] Care Team Providers Care [employer] Station Attendant Name Role Phone Trevor Rolon DO Primary Care Provider Lucy Christopher DO Unavailable Reason for Referral * Diagnostic Medical (Routine) - Closed Specialty Diagnoses / Procedures Referred By Contact Referred To Contact Gastroenterology Diagnoses GAVE (gastric antral vascular ectasia) Procedures EGD SC ESOPHAGOGASTRODUODENOSCOPY TRANSORAL DIAGNOSTIC SC EGD TRANSORAL BIOPSY SINGLE/MULTIPLE SC EGD BALLOON DILATION ESOPHAGUS <30 MM DIAM SC ESPHGOSCOPY FLEX W/BAND LIGATION ESOPHGL VARICES Mc Grant DO [address] [place] [address] Phone: tel:[phone] fax:[phone] [facility] [address] [place] [address] Phone: tel:[phone] fax:[phone] Referral ID Status Reason Start Date Expiration Date V isits Requested Visits Authorized [id number] Closed Perform Procedure 12/29/2024 12/29/2025 1 1 Reason for Visit * Diagnostic Medical (Routine) - Closed Specialty Diagnoses / Procedures Referred By Contact Referred To Contact Gastroenterology Diagnoses GAVE (gastric antral vascular ectasia) Procedures EGD SC ESOPHAGOGASTRODUODENOSCOPY TRANSORAL DIAGNOSTIC SC EGD TRANSORAL BIOPSY SINGLE/MULTIPLE SC EGD BALLOON DILATION ESOPHAGUS <30 MM DIAM SC ESPHGOSCOPY FLEX W/BAND LIGATION ESOPHGL VARICES Mc Grant DO [address] [place] [address] Phone: tel:[phone] fax:[phone] [facility] [address], [address] [place] [address] Phone: tel:[phone] fax:[phone] Referral ID Status Reason Start Date Expiration Date V isits Requested Visits Authorized [id number] Closed Perform Procedure 12/29/2024 12/29/2025 1 1 Encounter Details Date Type Department Care Team (Latest Contact Info) Description 12/15/2024 9:49 AM EDT - 12/15/2024 11:59 PM EDT Hospital Encounter [facility] [address], [address] [place] [address] Mc Grant DO [address] [place] [address] GAVE (gastric antral vascular ectasia) Discharge Disposition: Home or Self Care Social [...] How often do you attend chur or baptism services? More than 4 times per year 07/24/2022 Do you belong to any clubs o r organizations such as shinto groups, unions, fraternal or athletic groups, or [...] Recorded Patient Health Questionnaire-2 Score 0 09/28/2023 [facility] - [...] Sign Reading Time Taken Comments Blood Pressure 115/88 12/15/2024 11:21 AM EDT Pulse 84 12/15/2024 11:21 AM EDT Temperature 36.7 C (98 F) 12/15/2024 10:51 AM EDT Respiratory Rate 20 12/15/2024 11:21 AM EDT Oxygen Saturation 100% 12/15/2024 11:21 AM EDT Inhaled Oxygen Concentration - - Weight 75.5 kg (166 lb 7.2 oz) 12/15/2024 10:03 AM EDT Height 170.2 cm (5' 7 ) 12/15/2024 10:03 AM EDT Body Mass Index 26.07 12/15/2024 10:03 AM EDT documented in this encounter Medications at Time of Discharge [...] every 10 days 3 each 11 08/16/2024 Copper Gluconate 2 MG tablet Take 2 [...] 11 08/16/2024 ergocalciferol (Vitamin D-2) 1.25 MG (02508 UT) capsule Take 1 capsule (1.25 mg) [...] mL 3 09/01/2024 Insulin Pen Needle (Pen [place]) 32G X 4 MM miscIndications:Type 2 diabetes [...] 2 11/28/2024 documented as of this encounter H&P Notes * Mc Grant DO - 12/15/2024 10:45 AM EDT H&P reviewed. The patient was examined and there are no changes to the H&P. Source Note - Mc Grant DO - 11/15/2024 10:00 AM EDT Subjective [...] She was slated to be evaluated by [facility] for transplant consideration. She was deemed [...] liver disease. She reports recently following with [facility] and reports that her MELD [...] by Brayden Ferrer documented in this encounter Nursing Notes * Eleanor Gu, RN - 12/15/2024 11:12 AM EDT Family at bedside * Desiree Randolph - 12/15/2024 10:35 AM EDT EGD with APC treatment Pre: GAVE Post: Mild GAVE, Hiatal hernia, Schatzki's ring, retained food ERBE #3 documented in this encounter Plan of Treatment Upcoming Encounters Date Type Department Care Team (Late st Contact Info) Description 01/22/2025 12:00 PM EDT Office Visit [facility] NEUROLOGY PRACTICE [address] [place] [address] Ben Knox MD [facility] [address] [place] [id number] 01/22/2025 2:00 PM EDT Office Visit [facility] RHEUMATOLOGY PRACTICE [address] [place] [phone] Suman Treviño MD [address] [facility] [place] [address] 01/24/2025 1:00 PM EDT Office Visit [facility] SLEEP LAB PRACTICE [address] [place] [address] Demario Silva DO [address] [place] [address] 02/15/2025 1:20 PM EDT Appointment [facility] MAMMOGRAPHY SERVICES [facility] D [address] , [facility] [place] [address] 02/27/2025 1:00 PM EDT Office Visit [facility] ORTHOPEDIC PODIATRY PRACTICE [address] [place] [address] Alexandr Zarate, OLLIE [address] [place] [address] 02/28/2025 1:45 PM EDT Office Visit [facility] ONCOLOGY PRACTICE [address], [address] [place] [address] Lucy Christopher DO [address] [place], [place] [id number] 03/19/2025 1:15 PM EDT Office Visit [facility] GASTROENTEROLOGY PRACTICE [address], [address] [place] [address] 08/16/2025 10:00 AM EST Office Visit [facility] ENDOCRINOLOGY PRACTICE [address], [address] [place] [address] Brigitte Mahoney NP [address] [place] [address] 12/13/2025 11:00 AM EDT Office Visit [facility] OBGYN PRACTICE [address], [address] [place] [address] Janice Woodward NP [address] [place] [phone] documented as of this encounter Procedures Procedure Name Priority Date/Time Associated Diagnosis Comments EGD Routine 12/15/2024 10:49 AM EDT GAVE (gastric antral vascular ectasia) documented in this encounter Results * EGD (12/15/2024 10:49 AM EDT) Anatomical Region Laterality Modality Endoscopy 12/15/2024 10:3 1 AM EDT Impressions 12/15/2024 10:50 AM EDT Impression: - Normal larynx. - Non-obstructing Schatzki ring. - 2 cm hiatal hernia. - A medium amount of food (residue) in the stomach. - Gastric antral vascular ectasia without bleeding. Treated with argon plasma coagulation (APC). - Normal examined duodenum. - No specimens collected. Narrative 12/15/2024 10:50 AM EDT Patient Name: Trudy Peña Attending MD: Mc Grant DO Scope(s) used: 4637 Exam Date: 12/15/2024 10:31 AM Procedure: Upper GI endoscopy Indications: Watermelon stomach (GAVE syndrome) Providers: Mc Grant DO Referring MD: Mc Grant DO Medicines: Monitored Anesthesia Care Complications: No immediate complications. Procedure: Pre-Anesthesia Assessment: - Prior to the procedure, a History and Physical was performed, and patient medications, allergies and sensitivities were reviewed. The patient's tolerance of previous anesthesia was reviewed. - Patient identification and proposed procedure were verified prior to the procedure by the physician, the nurse and the sheriff deputy. The procedure was verified in the pre-procedure area. - The risks and benefits of the procedure and the sedation options and risks were discussed with the patient. All questions were answered and informed consent was obtained. - Pre-procedure physical examination revealed no contraindications to sedation. - After reviewing the risks and benefits, the patient was deemed in satisfactory condition to undergo the procedure. After obtaining informed consent, the endoscope was passed under direct vision. Throughout the procedure, the patient's blood pressure, pulse, and oxygen saturations were monitored continuously. The Endoscope was introduced through the mouth, and advanced to the third part of duodenum. The upper GI endoscopy was accomplished without difficulty. The patient tolerated the procedure well. Estimated Blood Loss: Estimated blood loss was minimal. Post Op Dx: The larynx was normal. A non-obstructing Schatzki ring was found at the gastroesophageal junction. A 2 cm hiatal hernia was present. A medium amount of food (residue) was found in the gastric body. Mild gastric antral vascular ectasia without bleeding was present in the gastric antrum. Coagulation for bleeding prevention using argon plasma was successful. The examined duodenum was normal. Recommendations: - Patient has a contact number available for emergencies. The signs and symptoms of potential delayed complications were discussed with the patient. Return to normal activities tomorrow. Written discharge instructions were provided to the patient. - Discharge patient to home. - Resume previous diet. - Continue present medications. - Return to GI office in 3 months. Procedure Code(s): --- Professional --- 33006, Esophagogastroduodenoscopy, flexible, transoral; with control of bleeding, any method --- Technical --- 44495, Esophagogastroduodenoscopy, flexible, transoral; with control of bleeding, any method Diagnosis Code(s): --- Professional --- K22.2, Esophageal obstruction K44.9, Diaphragmatic hernia without obstruction or gangrene K31.819, Angiodysplasia of stomach and duodenum without bleeding --- Technical --- K22.2, Esophageal obstruction K44.9, Diaphragmatic hernia without obstruction or gangrene K31.819, Angiodysplasia of stomach and duodenum without bleeding CPT copyright 2020 [employer]. All rights reserved. The codes documented in this report are preliminary and upon weather forcaster review may be revised to meet current compliance requirements. DO Mc Ceja Jr., DO 12/15/2024 10:50:45 AM This report has been signed electronically. Number of Addenda: 0 Note Initiated On: 12/15/2024 10:31 AM Scope In: Scope Out: Procedure Note Mc Grant DO - 12/15/2024 Patient Name: Trudy Ortegaon Attending MD: Mc Grant DO Scope(s) used: 4637 Exam Date: 12/15/2024 10:31 AM Procedure: Upper GI endoscopy Indications: Watermelon stomach (GAVE syndrome) Providers: Mc Grant DO Referring MD: Mc Grant DO Medicines: Monitored Anesthesia Care Complications: No immediate complications. Procedure: Pre-Anesthesia Assessment: - Prior to the procedure, a History and Physicalwas performed, and patient medications, allergies and sensitivities were reviewed. The patient'stolerance of previous anesthesia was reviewed. - Patient identification and proposed procedurewere verified prior to the procedure by the physician,the nurse and the sheriff deputy. The procedure wasverified in the pre-procedure area. - The risks and benefits of the procedure and the sedation options and risks were discussed with the patient. All questions were answered and informed consent was obtained. - Pre-procedure physical examination revealed no contraindications to sedation. - After reviewing the risks and benefits, thepatient was deemed in satisfactory condition to undergo the procedure. After obtaining informed consent, the endoscope was passed under direct vision. Throughout theprocedure, the patient's blood pressure, pulse, and oxygen saturations were monitored continuously. TheEndoscope was introduced through the mouth, and advanced tothe third part of duodenum. The upper GI endoscopy was accomplished without difficulty. The patienttolerated the procedure well. Estimated Blood Loss: Estimated blood loss was minimal. Post Op Dx: The larynx was normal. A non-obstructing Schatzki ring was found at the gastroesophageal junction. A 2 cm hiatal hernia was present. A medium amount of food (residue) was found in the gastric body. Mild gastric antral vascular ectasia without bleeding was present inthe gastric antrum. Coagulation for bleeding prevention using argonplasma was successful. The examined duodenum was normal. Recommendations: - Patient has a contact number available for emergencies. The signs and symptoms of potential delayed complications were discussed with thepatient. Return to normal activities tomorrow. Written discharge instructions were provided to thepatient. - Discharge patient to home. - Resume previous diet. - Continue present medications. - Return to GI office in 3 months. Procedure Code(s): --- Professional --- 89877, Esophagogastroduodenoscopy, flexible, transoral; with control of bleeding, any method --- Technical --- 09054, Esophagogastroduodenoscopy, flexible, transoral; with control of bleeding, any method Diagnosis Code(s): --- Professional --- K22.2, Esophageal obstruction K44.9, Diaphragmatic hernia without obstruction or gangrene K31.819, Angiodysplasia of stomach and duodenum without bleeding --- Technical --- K22.2, Esophageal obstruction K44.9, Diaphragmatic hernia without obstruction or gangrene K31.819, Angiodysplasia of stomach and duodenum without bleeding CPT copyright 2020 [employer]. All rights reserved. The codes documented in this report are preliminary and upon weather forcaster reviewmay be revised to meet current compliance requirements. Mc Grant Jr., DO Mc Grant DO 12/15/2024 10:50:45 AM This report has been signed electronically. Number of Addenda: 0 Note Initiated On: 12/15/2024 10:31 AM Scope In: Scope Out: IMPRESSION: Impression: - Normal larynx. - Non-obstructing Schatzki ring. - 2 cm hiatal hernia. - A medium amount of food (residue) in thestomach. - Gastric antral vascular ectasia without bleeding. Treated with argon plasma coagulation (APC). - Normal examined duodenum. - No specimens collected. Mc Grant DO ENDOSCOPY PROCEDURE ORDER J LUIS Final Result documented in this encounter Visit Diagnoses Diagnosis GAVE (gastric antral vascular ectasia) documented in this encounter Administered Medications Inactive Administered Medications - up to 3 most recent administrations Medication Order MAR Action Action Date Dose Rate Site Amisulpride (Antiemetic) (Barhemsys) IV Soln 10 mg 10 mg, Intravenous, Once, On Wed12/15/24 at 1130, For 1 dose, Recovery (only) Given 12/15/2024 11:27 AM EDT 10 mg documented in this encounter Additional Health Concerns Assessment Noted Time PHQ-9 Depression Total Score: 0 07/24/19 23 3:00 PM EST documented as of this encounter Care Teams [employer] Attendant Relationship Specialty Start Date End Date Trevor Rolon DO [address] [facility] [address] [place] [id number] PCP - General Lucy Christopher DO [address] [facility] [place] [address] Consulting Physician Oncology 10/17/24 documented as of this encounter
--- OUTSIDE RECORDS SUMMARY | 2024-12-15 10:33 | XMS_ITS | Encounter Summary ---
Author Organization [facility] nter Address [address] [place] [address] Care Team Providers Care Biodiesel Technology Manager Name Role Phone Trevor Rolon DO Primary Care Provider Lucy Christopher DO Unavailable Encounter Details Date Type Department Care Team (Late st Contact Info) Description 12/15/2024 10:33 AM EDT Anesthesia Event [facility] [address], 3rd [place] [address] Constantino Arias MD [address] [place] [address] Anesthesia Record Procedure Summary Procedure Name Responsible Anesthesiologist Anesthesia Start Time Anesthesia Stop Time EGD Constantino Arias MD 12/15/24 1033 12/15/24 1 047 Events Date Time Event Comment 12/15/2024 1027 1031 In Room 1033 An Start 1033 An Start Data 1034 An Induction The patient was reevaluated immediately before moderate or deep sedation use and before anesthesia induction. 1034 Anesthesia Ready 1047 an stop data 1047 Handoff to Receiving I compl eted my handoff to the receiving clinician during which we: 1. Identified the patient 2. Identified the responsible provider 3. Reviewed the pertinent medical history 4. Discussed the surgical course 5. Reviewed intra-op anesthesia management and issues during anesthesia 6. Set expectations for post-procedure period 7. Allowed opportunity for questions and acknowledgement of understanding. 1047 An Stop 1049 Out of Room Meds Name Total propofol 10 mg/mL 147.23 mg phenylephrine 100 mcg/mL syringe 100 mcg lidocaine 2% prefilled syringe 100 mg dexmedetomidine 100 mcg/mL injection 15 mcg LR 250 mL * Agents No agents on file. * Blood No blood administrations on file. Lines, Drains, and Airways Type Details Placement Removal Peripheral IV Placement Date: 10/10 12/03; Placement Time: 1516; Catheter Size: 22 G; Orientation: Right; Location: Antecubital; Site Prep: Alcohol; Local Anesth: None; Inserted by: Marc Etienne; Insertion Attempts: 1; Difficult Venous Access? No; Patient Tolerance: Tolerated well; Removal Date: 12/15/24; Removal Time: 1015 10/24/24 1516 by Debora Blankenship RN 12/15/24 1015 by Christina Garay RN Peripheral IV Placement Date: 01/03; Placement Time: 1020; Catheter Size: 20 G; Orientation: Right; Location: Wrist; Site Prep: Chlorhexidine; Local Anesth: Injectable; Inserted by: jenna olson; Insertion Attempts: 2; Patient Tolerance: Tolerated well; Removal Date: 12/15/24; Removal Time: 1136 12/15/24 1020 by Christina Garay RN 12/15/24 1136 by Eleanor Gu RN documented in this encounter Social History Tobacco Use Types Packs/Day Years [...] How often do you attend chur or taoism services? More than 4 times per year 07/24/2022 Do you belong to any clubs o r organizations such as yarsanism groups, unions, fraternal or athletic groups, or [...] Recorded Patient Health Questionnaire-2 Score 0 09/28/2023 [facility] of Occupat ional Health - Occupational Stress [...] place to sleep or slept in a [facility] (including now)? 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)) Scheduled Providers: Mc Grant DO Responsible Provider: Constantino Arias MD Anesthesia Type: MAC ASA Status: 3 Anesthesia Type: MAC Vitals Value Taken Time BP 116/71 12/15/24 1051 Temp 98 ??F (36.7 ??C) 12/15/24 1051 Pulse 85 12/15/24 1051 Resp 17 12/15/24 1051 SpO2 98 % 12/15/24 1051 Anesthesia Post Evaluation Patient location during evaluation: PACU Postoperative Nausea: No Patient participation: complete - patient participated Level of consciousness: awake and alert Pain management: satisfactory to patient Airway patency: patent Cardiovascular status: acceptable and blood pressure returned to baseline Respiratory status: acceptable Hydration status: acceptable No notable events documented. * Constantino Arias MD - 12/15/2024 10:10 AM EDT Patient: Trudy Peña Author: Constantino Arias MD Procedure Information Date/Time: 12/15/24 1045 Scheduled providers: Mc Grant DO Procedure: EGD Location: [facility] ENDOSCOPY Visit Vitals Temp 97.4 ??F (36.3 ??C) (Temporal) Ht 5' 7 (1.702 m) Wt 166 lb 7.2 oz (75.5 kg) BMI 26.07 kg/m?? OB Status Hysterectomy Smoking Status Former BSA 1.87 m?? Past Medical History: Diagnosis Date Anxiety Arthritis Chronic back pain Cirrhosis nonalcoholic of the liver Depression Diabetes mellitus type II GERD (gastroesophageal reflux disease) Headache Heart disease High cholesterol Hypertension Joint pain Memory loss Numbness feet - left is worse than right Restless leg syndrome Serratia infection history of/ happened after 2nd back surgery Sleep apnea Spinal abscess history of per patient - happened after 2nd back surgery per patient Vasculitis Past Surgical History: Procedure Laterality Date APPENDECTOMY BACK SURGERY L5 - S1 - has had 2 back surgery procedures for this area per patient. BREAST SURGERY Bilateral reduction CHOLECYSTECTOMY COLONOSCOPY 2022 CT CHEST ANGIOGRAM W AND/OR WO IV CONTRAST 03/25/2020 CT CHEST ANGIOGRAM W AND/OR WO IV CONTRAST [facility] D DIAG IMG CYST REMOVAL Left wrist ESOPHAGOGASTRODUODENOSCOPY EXPLORATORY LAPAROTOMY ? pelvic pain - right ovarian cyst was found per patient HYSTERECTOMY with BSO OVARIAN CYST REMOVAL Right TUBAL LIGATION Current Outpatient Medications Medication Instructions bumetanide (BUMEX) 2 mg, Daily busPIRone (Buspar) 7.5 MG tablet take 1 tablet by mouth two times a day as needed for anxiety Continuous Glucose Sensor (Dexcom G7 Sensor) misc 1 each, Does not apply, Every 10 days, Use every 10 days Copper Gluconate 2 mg, Oral, Daily desvenlafaxine (PRISTIQ) 50 mg, Nightly Diclofenac Sodium (Voltaren) 1 % gel Apply to affected area BID PRN empagliflozin (JARDIANCE) 25 mg, Oral, Daily ergocalciferol (VITAMIN D-2) 1.25 mg, Weekly FeroSul 325 mg, Daily RT glucose blood (CYBRAuch Verio) test strip Use 3 per day. Code E11.65 hydrOXYzine HCl (Atarax) 25 MG tablet 1 tablet, 3 times daily PRN insulin aspart (NovoLOG FLEXPEN) 100 UNIT/ML pen Take 5 units at breakfast, lunch, and supper if premeal BS >150. Max daily dose 50 units Insulin Pen Needle (Pen [place]) 32G X 4 MM misc Use 4 per day LACTULOSE PO Daily lansoprazole (PREVACID) 30 mg, Daily before breakfast Lantus SoloStar 100 UNIT/ML pen Take 20 units daily. Titrate to target glucose. Max daily dose 50 units. lidocaine (Lidoderm) 5 % patch Apply 1 patch topically if needed each day for mild pain (1-4) or moderate pain (5-7). Lifitegrast (Xiidra) 5 % solution INSTILL 1 DROP IN EACH EYE TWO TIMES A DAY lisinopril 2.5 MG tablet Take 1 tablet (2.5 mg) by mouth in the morning. metoprolol succinate XL (TOPROL-XL) 50 mg, Daily ondansetron ODT (Zofran-ODT) 8 MG disintegrating tablet Take 4 mg by mouth every 8 (eight) hours ifneeded. Ozempic (1 MG/DOSE) 1 mg, Subcutaneous, Weekly, Take 1 mg each week potassium chloride CR (Klor-Con M20) 20 MEQ ER tablet 20 mEq, 2 times daily pregabalin (LYRICA) 25 mg, Oral, 2 times daily promethazine (Phenergan) 25 MG tablet As needed Rimegepant Sulfate (Nurtec) 75 MG tablet dispersible Take 1 tab PO at the onset of a migraine. Do not exceed more than 1 tab in 24 hours. rOPINIRole (REQUIP) 1 mg, 4 times daily simvastatin (ZOCOR) 20 mg, Nightly spironolactone (ALDACTONE) 100 mg, Daily Xifaxan 550 mg, Oral, 2 times daily Zinc 50 mg, Oral, Daily Allergies Allergen Reactions Iodine Itching and Rash Oxycodone Hallucinations Pt states she is not allergic to oxycodone. Percocet [Oxycodone-Acetaminophen] Hives Povidone Iodine Hives Sulfa Drugs Hives Sulfacetamide Hives Vortioxetine Hives Mastisol Adhesive [Wound Dressing Adhesive] Rash @LABBRIEF(NA,K,CL,CO2,BUN,CREATININE,GLUCOSE,CALCIUM,CAION,MG,PHOS,ALBUMIN,PROT, AMMONIA,ALKPHOS,ALT,AST,BILITOT,AMYLASE,LIPASE,ANIONGAP,EGFR,BCR)@ @LABBRIEF(WBC,HGB,HCT,PLT,MCV,MCHC)@ @LABBRIEF(APTT,PT,INR)@ Patient summary reviewed, Nursing notes reviewed and NPO status verified Anesthesia Evaluation: Pulmonary - normal exam (+) Sleep apnea: CPAP (Negative for:) O2 dependency Hematology/Oncology Neuro/Psych (+) Depression, Chronic Opioid Therapy, Neuropathy (Negative for:) Seizures, TIA, CVA GI/Hepatic/Renal (+) GERD well controlled, Liver disease (GOOD): GOOD Endo (+) Diabetes Mellitus: , Obesity, Other Cardiovascular - normal exam Exercise tolerance: good (+) Hypertension, Hyperlipidemia ROS comment: ECHO (07/24/2022): EF 55-60%. Normal LVDF. RVSP mildly increased. Physical Exam: Airway Mallampati: III TM distance: <3 FB Neck ROM: full Neurology Cardiovascular - normal exam Dental (+) Edentulous Pulmonary - normal exam Anesthesia Plan: ASA 3 MAC Induction: intravenous Post Operative Plan: Informed Consent: Anesthetic plan and risks discussed with patient. Plan discussed with CUSTOMER SERVICE RECEPTIONIST. documented in this encounter Plan of Treatment Upcoming Encounters Date Type Department Care Team (Late st Contact Info) Description 01/22/2025 12:00 PM EDT Office Visit [facility] NEUROLOGY PRACTICE [address] [place] [address] Ben Knox MD [address] [facility] [place] [address] 01/22/2025 2:00 PM EDT Office Visit [facility] RHEUMATOLOGY PRACTICE [address] [place] [address] Suman Treviño MD [address] [facility] [address] 01/24/2025 1:00 PM EDT Office Visit [facility] SLEEP LAB PRACTICE [address], [place] [address] Demario Silva DO [address] [place] [id number] 02/15/2025 1:20 PM EDT Appointment [facility] MAMMOGRAPHY SERVICES [facility] [address], [place] [address] 02/27/2025 1:00 PM EDT Office Visit [facility] ORTHOPEDIC PODIATRY PRACTICE [address] [place] [address] Alexandr Zarate DPM [address] [facility] [place] [id number] 02/28/2025 1:45 PM EDT Office Visit [facility] [address] 10[address] [place] [address] Lucy Christopher DO [address] [place] [address] 03/19/2025 1:15 PM EDT Office Visit [facility] GASTROENTEROLOGY PRACTICE [address] 2nd [place] [address] 08/16/2025 10:00 AM EST Office Visit [facility] ENDOCRINOLOGY PRACTICE [address], 8[address] [place] [address] Brigitte Mahoney NP [address] [place] [address] 12/13/2025 11:00 AM EDT Office Visit [facility] OBGYN PRACTICE [address] 7[address] [place] [address] Janice Woodward NP [address] [place] [address] documented as of this encounter Visit Diagnoses Not on filedocumented in this encounter Administered Medications Inactive Administered Medications - up to 3 most recent administrations Medication Order MAR Action Action Date Dose Rate Site dexmedeTOMIDine (Precedex) concentrated solution Intravenous, As needed, Starting on Wed12/15/24 at 1034, Anesthesia Intraprocedure Given 12/15/2024 10:41 AM EDT 5 mcg Given 12/15/2024 10:38 AM EDT 5 mcg Given 12/15/2024 10:34 AM EDT 5 mcg lactated Ringer's infusion Intravenous, Continuous PRN, Starting on Wed12/15/24 at 1031, Anesthesia Intraprocedure New Bag 12/15/2024 10:31 AM EDT lidocaine (Xylocaine) injection Intravenous, As needed, Starting on Wed12/15/24 at 1034, Anesthesia Intraprocedure Given 12/15/2024 10:34 AM EDT 100 mg phenylephrine (Rosendo-Synephrine) syringe Intravenous, As needed, Starting on Wed12/15/24 at 1044, Anesthesia Intraprocedure Given 12/15/2024 10:44 AM EDT 100 mcg propofol (Diprivan) infusion 10 mg/mL Intravenous, Continuous PRN, Starting on Wed12/15/24 at 1034, Anesthesia Intraprocedure New Bag 12/15/2024 10:34 AM EDT 150 mcg/kg/min 67.95 mL/hr documented in this encounter Additional Health Concerns Assessment Noted Time PHQ-9 Depression Total Score: 0 07/24/19 23 3:00 PM EST documented as of this encounter Care Teams Biodiesel Technology Manager Relationship Specialty Start Date End Date Trevor Rolon DO [address] [facility] [address] [place] [phone] PCP - General Lucy Christopher DO [address] [place] [address] [place] [address] Consulting Physician Oncology 10/17/24 documented as of this encounter
--- OUTSIDE RECORDS SUMMARY | 2025-01-02 18:12 | XMS_ITS | Encounter Summary ---
Author Organization Healthcare Address [address] [place] [address] Care Team Providers Care Director Of Managed Services Name Role Phone Trevor Rolon DO Primary Care Provider [phone] Mc Grant DO Unavailable [phone] Encounter Details Date Type Department Care Team (Late st Contact Info) Description 08/23/2022 Orders Only External Location [address] [place] [address] Provider, External Social History Tobacco Use Types Packs/Day Years Used Date Smoking Tobacco: Every Day Alcohol Use Standard Drinks/Week Comments Yes 0 (1 standard drink = 0.6 oz pure alcohol) Alcoholic Drinks/day: Social alcohol use Comments Unknown Sex and Gender Information Value Date Recorded Sex Assigned at Female 03/11/2021 7:37 PM EDT Legal Sex Female 8:49 PM EDT Gender Identity Female 03/11/2021 7:37 PM EDT Sexual Orientation Not on file COVID-19 Exposure Response Date Recorded In the last 10 days, have yo u been in contact with someone who was confirmed or suspected to have Coronavirus/COVID-19? No / Unsure 08/24/2022 11:01 PM EST documented as of this encounter Plan of Treatment Not on file documented as of this encounter Procedures Procedure Name Priority Date/Time Associated Diagnosis Comments MR OUTSIDE IMAGES 08/23/2022 8:33 AM EST documented in this encounter Results * MR transfer of outside films (08/23/2022 8:33 AM EST) Anatomical Region Laterality Modality Magnetic Resonan ce 08/23/2022 8:33 AM EST us External Provider IMG MRI PROCEDURES Final Resul t documented in this encounter Visit Diagnoses Not on filedocumented in this encounter Care Teams Director Of Managed Services Relationship Specialty Start Date End Date Trevor Rolon DO [address] [facility] [address] [place] [address] PCP - General 11/22/20 Mc Grant DO [address] [facility] [address] [place] [address] Referring Physician Gastroenterology 02/21/24 documented as of this encounter
--- OUTSIDE RECORDS SUMMARY | 2025-01-02 18:12 | XMS_ITS | Encounter Summary ---
Author Organization [facility] Address [address] [place] [address] Care Team Providers Care Machine Operator Assistant Name Role Phone Trevor Rolon DO Primary Care Provider [phone] Mc Grant DO Unavailable Encounter Details Date Type Department Care Team (Late st Contact Info) Description 02/18/2024 Community Orders Community Practice [address] [place] [address] Mc Grant DO [address] [place] [id number] Encephalopathy, hepatic (CMS/HCC) (Primary Dx); Cirrhosis of liver with ascites, unspecified hepatic cirrhosis type (CMS/HCC) Social History Tobacco Use Types Packs/Day Years Used Date Smoking Tobacco: Former Cigarettes 0.1 10.6 2 012 - 02/2022 Smokeless Tobacco: Never Alcohol Use Standard Drinks/Week Comments Yes 0 (1 standard drink = 0.6 oz pure alcohol) Alcoholic Drinks/day: Social alcohol use PHQ-2 Answer Date Recorded Patient Health Questionnaire-2 Score 5 02/22/2024 PHQ-9 Answer Date Recorded Patient Health Questionnaire-9 Score 12 02/22/2024 Comments Unknown Sex and Gender Information Value Date Recorded Sex Assigned at Female 03/11/2021 7:37 PM EDT Legal Sex Female 8:49 PM EDT Gender Identity Female 03/11/2021 7:37 PM EDT Sexual Orientation Not on file documented as of this encounter Plan of Treatment Not on file documented as of this encounter Visit Diagnoses Diagnosis Encephalopathy, hepatic (CMS/HCC)- Primary Hepatic encephalopathy Cirrhosis of liver with ascites, unspecified hepatic cirrhosis type (CMS/HCC) documented in this encounter Additional Health Concerns Assessment Noted Time A fall risk assessment has been complete d for the patient 05/14/2023 11:23 AM EDT A Body Mass Index follow-up plan has been documented for the patient 05/19/2023 10:54 AM EST documented as of this encounter Care Teams Machine Operator Assistant Relationship Specialty Start Date End Date Trevor Rolon DO [address] [facility] [address] [place] [address] PCP - General 11/22/20 Mc Grant DO [address] [facility] [address] [place] [address] Referring Physician Gastroenterology 02/21/24 documented as of this encounter
--- OUTSIDE RECORDS SUMMARY | 2025-01-02 18:12 | XMS_ITS | Data Portability ---
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 She underwent a lumbar decompression and discectomy in 1994 at the L5-S1 level and subsequently had another discectomy at the L5-S1 level in 2009. This was complicated by infection and she had had an abscess drained later in 2009.She has a hx of Cirrohosis and is currently on Xifaxin treatment. She was unable to tolerate Hydrocodone and in an attempt to avoid further liver toxin medications she was switched to Oxycodone w/o Tylenol. Today: Patient is here for a followup for ongoing mid back pain. Patient states that their pain has stayed the same in the mid back and has gotten better in the low back as compared to their last visit. Patient had a #1 B/L RFA L3-5 on 12/14/2022 which offered 85% relief that is ongoing. Patient states that the injection has helped the low back but she is still having pain in the mid back. She reports that she continues with chronic radicular lower extremity numbness and tingling. Adding gabapentin at low dose has not been effective. She reports that she continues to have mid thoracic that is worse with movement. Worse in the AM. I will order Thoracic X rays and Provide Thoracic Exercises. Imaging: -X-ray of the thoracic spine from September 2021 showed degenerative changes most notable in the mid thoracic spine with disc space narrowing and anterior osteophyte formation. Pain Scale: Patient's self reported pain level is 7/10 today. Medication is effective and patient denies side effects. The medication allows the patient to perform daily activities of living without severe pain. Patient reports functional gains such as, improved sitting, standing, and walking tolerance as a result of taking the prescribed medications. Patient reports improvement of temperament, depression and or anxiety symptoms related to their chronic pain conditions. To date the patient has shown no aberrant behaviors. Imaging: -X-ray of the thoracic spine from September 2021 showed degenerative changes most notable in the mid thoracic spine with disc space narrowing and anterior osteophyte formation. PROCEDURE: MR LUMBAR SPINE WO CONTRAST: 08/23/2022 CLINICAL INFORMATION: M96.1 COMPARISON: MRI lumbar spine 03/28/2015. Lumbar spine radiographs 09/10/2021. No acute fracture or subluxation of the lumbar spine. No aggressive marrow signal abnormality. Multilevel degenerative endplate change. Mild scoliosis. Susceptibility artifact posterior to the L4-L5 levels most compatible with postsurgical change. Visualized portions of the abdomen and pelvis are without acute abnormality. Multilevel spondylotic change of the spine as follows: T12-L1 - mild broad-based disk bulge and bilateral facet arthropathy. No significant spinal canal or neuroforaminal narrowing. L1-L2 - mild broad-based disk bulge and bilateral facet arthropathy. No significant spinal canal or neuroforaminal narrowing. L2-L3 - mild broad-based disk bulge and bilateral facet arthropathy. Minimal right neuroforaminal narrowing. No significant spinal canal narrowing. L3-L4 - mild broad-based disk bulge and bilateral facet arthropathy. Minimal right neuroforaminal narrowing. No significant spinal canal narrowing. L4-L5 - broad-based disk bulge eccentric to the right with bilateral facet arthropathy. Moderate right neuroforaminal narrowing. There is relative close abutment of exiting nerve root far laterally via disk material. Mild to moderate left neuroforaminal narrowing. Mild to moderate spinal canal narrowing. L5-S1 - mild broad-based disk bulge eccentric to the left with bilateral facet arthropathy. Moderate left neuroforaminal narrowing. No significant spinal canal narrowing. IMPRESSION: No acute fracture or subluxation of the lumbar spine. Mild scoliosis. Susceptibility artifact posterior to the L4-L5 levels most compatible with postsurgical change. Multilevel spondylotic change of the spine as above. Injection Hx - See Vaccination Tab Compliance: UDS/Yohan Updated Yohan was reviewed today and is appropriate. Last UDS confirmation: 11/02/2022 appropriate Plan: PMC Records Reviewed. Hx of Cirrohosis of the Liver therefore tylenol will be avoided Continue Oxycodone 10 mg - 0.5 mg tab TID prn # 45 ( Oxycodone 10 mg ordered in an attempt to decrease tylenol dosing_ Continue Flexeril 10 mg PO BID prn # 60 prn PCP to Continue Neurologic In house UDS next visit. i will continue and increase Gabapentin 300 mg PO BID # 60 The patient was treated with Lyrica in the past without relief of symptoms. Due to increase mid thoracic pain I will order X ray and provide exercises ( 12/28/22) Also swelling and pain to the posterior cervical region I will order x rays and provide exercises (12/28/2021) Pt will follow up in clinic for continued evaluation and medication refill in 1 month to discuss pain, review imaging and determine further plan of care. I would categorize this patient as Moderate risk for Abuse based on the patients history of nursing home opioid pain medication. Plan of care includes monthly visits, Yohan Report/Review, Randomized Urine Drug Testing at least quarterly with confirmation to monitor compliance. This is subject to change based on the patient's previous Urine Drug Screens, Yohan Reports , Change in Symptoms, Medication Request Change or Providers Discretion. 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 The electronic translation of spoken language may permit erroneous or at times nonsensical words of phrases to be inadvertently transcribed; Although I have reviewed the note for such errors, some may still exist. [email or web address] Not available 12/28/2022 18:01:23 02/03/2023 02/03/2023 Trudy Peña is a 52-year-old female presents today for new patient evaluation with complaints of chronic low back pain and midthoracic pain. She underwent a lumbar decompression and discectomy in 1994 at the L5-S1 level and subsequently had another discectomy at the L5-S1 level in 2009. This was complicated by infection and she had had an abscess drained later in 2009.She has a hx of Cirrohosis and is currently on Xifaxin treatment. She was unable to tolerate Hydrocodone and in an attempt to avoid further liver toxin medications she was switched to Oxycodone w/o Tylenol. Today: Patient Trudy Peña is here for a followup visit today. Patient feels that their pain has stayed around the same in the low back since the last visit but her neck pain seems to have gotten worse. She reports an overall large increase in posterior cervical pain. She reports intermittent numbness and tingling to the upper extremities with frequency of dropping items. She was provided with an at home exercise regime on 12/28/2022 wtihout relief of symptoms. Therefore MRI will ordered at [facility]. Patient had a cervical spine xray and a thoracic spine xray on 01/06/2023 and it is listed below and reviewed with patient. Imaging: -X-ray of the thoracic spine from September 2021 showed degenerative changes most notable in the mid thoracic spine with disc space narrowing and anterior osteophyte formation. Pain Scale: Patient's self reported pain level is 7/10 today. Medication is effective and patient denies side effects. The medication allows the patient to perform daily activities of living without severe pain. Patient reports functional gains such as, improved sitting, standing, and walking tolerance as a result of taking the prescribed medications. Patient reports improvement of temperament, depression and or anxiety symptoms related to their chronic pain conditions. To date the patient has shown no aberrant behaviors. Imaging: -X-ray of the thoracic spine from September 2021 showed degenerative changes most notable in the mid thoracic spine with disc space narrowing and anterior osteophyte formation. PROCEDURE: MR LUMBAR SPINE WO CONTRAST: 08/23/2022 CLINICAL INFORMATION: M96.1 COMPARISON: MRI lumbar spine 03/28/2015. Lumbar spine radiographs 09/10/2021. No acute fracture or subluxation of the lumbar spine. No aggressive marrow signal abnormality. Multilevel degenerative endplate change. Mild scoliosis. Susceptibility artifact posterior to the L4-L5 levels most compatible with postsurgical change. Visualized portions of the abdomen and pelvis are without acute abnormality. Multilevel spondylotic change of the spine as follows: T12-L1 - mild broad-based disk bulge and bilateral facet arthropathy. No significant spinal canal or neuroforaminal narrowing. L1-L2 - mild broad-based disk bulge and bilateral facet arthropathy. No significant spinal canal or neuroforaminal narrowing. L2-L3 - mild broad-based disk bulge and bilateral facet arthropathy. Minimal right neuroforaminal narrowing. No significant spinal canal narrowing. L3-L4 - mild broad-based disk bulge and bilateral facet arthropathy. Minimal right neuroforaminal narrowing. No significant spinal canal narrowing. L4-L5 - broad-based disk bulge eccentric to the right with bilateral facet arthropathy. Moderate right neuroforaminal narrowing. There is relative close abutment of exiting nerve root far laterally via disk material. Mild to moderate left neuroforaminal narrowing. Mild to moderate spinal canal narrowing. L5-S1 - mild broad-based disk bulge eccentric to the left with bilateral facet arthropathy. Moderate left neuroforaminal narrowing. No significant spinal canal narrowing. IMPRESSION: No acute fracture or subluxation of the lumbar spine. Mild scoliosis. Susceptibility artifact posterior to the L4-L5 levels most compatible with postsurgical change. Multilevel spondylotic change of the spine as above. Injection Hx - See Vaccination Tab Compliance: UDS/Yohan Updated Yohan was reviewed today and is appropriate. Last UDS confirmation: 12/28/2022 UDS was negative She reports that this is due to only taking medication intermittently. Plan: Hx of Cirrohosis of the Liver therefore tylenol will be avoided Continue Oxycodone 10 mg - 0.5 mg tab TID prn # 45 ( Oxycodone 10 mg ordered in an attempt to decrease tylenol dosing) Continue Flexeril 10 mg PO BID prn # 60 prn PCP to Continue Neurologic i will continue Gabapentin 300 mg PO BID # 60 The patient was treated with Lyrica in the past without relief of symptoms. Also swelling and pain to the posterior cervical region I will order x rays and provide exercises (12/28/2021) She was provided with an at home exercise regime on 12/28/2022 wtihout relief of symptoms. Therefore MRI will ordered at [facility]. IN house UDS this visit and education provided to the patient to take medications as directed. Pt will follow up in clinic for continued evaluation and medication refill in 1 month to discuss pain, review imaging and determine further plan of care. 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 Plan of care includes monthly visits, Yohan Report/Review, Randomized Urine Drug Testing at least quarterly with confirmation to monitor compliance. This is subject to change based on the patient's previous Urine Drug Screens, Yohan Reports , Change in Symptoms, Medication Request Change or Providers Discretion. 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 The electronic translation of spoken language may permit erroneous or at times nonsensical words of phrases to be inadvertently transcribed; Although I have reviewed the note for such errors, some may still exist. [email or web address] Not available 02/03/2023 10:30:02 03/10/2023 03/10/2023 Trudy Peña is a 52-year-old female presents today for new patient evaluation with complaints of chronic low back pain and midthoracic pain. She underwent a lumbar decompression and discectomy in 1994 at the L5-S1 level and subsequently had another discectomy at the L5-S1 level in 2009. This was complicated by infection and she had had an abscess drained later in 2009.She has a hx of Cirrohosis and is currently on Xifaxin treatment. She was unable to tolerate Hydrocodone and in an attempt to avoid further liver toxin medications she was switched to Oxycodone w/o Tylenol. Today: Patient Trudy Peña is here for a followup visit today. Patient feels that their pain has stayed around the same in the low back since the last visit but her neck pain seems to have gotten worse. She reports an overall large increase in posterior cervical pain. She reports intermittent numbness and tingling to the upper extremities with frequency of dropping items. She was provided with an at home exercise regime on 12/28/2022 wtihout relief of symptoms. Therefore MRI will ordered at [facility]. Patient had a cervical spine xray and a thoracic spine xray on 01/06/2023 and it is listed below and reviewed with patient. After evaluation today, patient's thoracic pain appears to be primarily facet mediated they have positive facet loading on physical examination and tenderness to palpation over the lower lumbar facet joints. Arthritic changes in plain film x rays. Patient failed to respond to conservative therapies therefore I am ordering #1 Bilateral T5-7 TMBBs. If patient gets at least 80% relief or increase in ADLs with two rounds of diagnostic TMBBs then the ultimate goal would be to pursure RFA at these levels. Patient was in agreement with pursuing injection therapy therefore I will place order for first diagnostic injection today. Imaging: -X-ray of the thoracic spine from September 2021 showed degenerative changes most notable in the mid thoracic spine with disc space narrowing and anterior osteophyte formation. Pain Scale: Patient's self reported pain level is 7/10 today. Medication is effective and patient denies side effects. The medication allows the patient to perform daily activities of living without severe pain. Patient reports functional gains such as, improved sitting, standing, and walking tolerance as a result of taking the prescribed medications. Patient reports improvement of temperament, depression and or anxiety symptoms related to their chronic pain conditions. To date the patient has shown no aberrant behaviors. Imaging: -X-ray of the thoracic spine from September 2021 showed degenerative changes most notable in the mid thoracic spine with disc space narrowing and anterior osteophyte formation. PROCEDURE: MR LUMBAR SPINE WO CONTRAST: 08/23/2022 CLINICAL INFORMATION: M96.1 COMPARISON: MRI lumbar spine 03/28/2015. Lumbar spine radiographs 09/10/2021. No acute fracture or subluxation of the lumbar spine. No aggressive marrow signal abnormality. Multilevel degenerative endplate change. Mild scoliosis. Susceptibility artifact posterior to the L4-L5 levels most compatible with postsurgical change. Visualized portions of the abdomen and pelvis are without acute abnormality. Multilevel spondylotic change of the spine as follows: T12-L1 - mild broad-based disk bulge and bilateral facet arthropathy. No significant spinal canal or neuroforaminal narrowing. L1-L2 - mild broad-based disk bulge and bilateral facet arthropathy. No significant spinal canal or neuroforaminal narrowing. L2-L3 - mild broad-based disk bulge and bilateral facet arthropathy. Minimal right neuroforaminal narrowing. No significant spinal canal narrowing. L3-L4 - mild broad-based disk bulge and bilateral facet arthropathy. Minimal right neuroforaminal narrowing. No significant spinal canal narrowing. L4-L5 - broad-based disk bulge eccentric to the right with bilateral facet arthropathy. Moderate right neuroforaminal narrowing. There is relative close abutment of exiting nerve root far laterally via disk material. Mild to moderate left neuroforaminal narrowing. Mild to moderate spinal canal narrowing. L5-S1 - mild broad-based disk bulge eccentric to the left with bilateral facet arthropathy. Moderate left neuroforaminal narrowing. No significant spinal canal narrowing. IMPRESSION: No acute fracture or subluxation of the lumbar spine. Mild scoliosis. Susceptibility artifact posterior to the L4-L5 levels most compatible with postsurgical change. Multilevel spondylotic change of the spine as above. PROCEDURE: MR CERVICAL SPINE WO CONTRAST: 03/01/2023 CLINICAL INFORMATION: neck pain neck pain Reversal lordotic curvature of the cervical spine.. There is no evidence of acute fracture, or dislocation. The height of the vertebral bodies are well preserved. There is edema neuro changes in the inferior aspect of C6 and superior aspect of C7. Irregularity in the superior endplate of C7.. Multilevel disk desiccation. The included portions of the posterior fossa and the cervical cord show no focal signal abnormalities. C2-C3: No significant spinal canal or neural foraminal narrowing.. C3-C4: Broad disk bulge with uncovertebral hypertrophy results in no significant spinal canal or neural foraminal narrowing.. C4-C5: Broad disk bulge with ligamentum thickening and uncovertebral hypertrophy results in [id number] spinal canal narrowing and bilateral neural foraminal narrowing.. C5-C6: Broad disk bulge eccentric to the left with ligamentum flavum thickening and uncovertebral hypertrophy results in moderate spinal canal narrowing and mild bilateral neural foraminal narrowing. This abuts the ventral aspect of the cord.. C6-C7: Broad disk bulge with uncovertebral hypertrophy and ligamentum flavum thickening results in moderate spinal canal narrowing and [id number] bilateral neural foraminal narrowing.. C7-T1: Broad disk bulge eccentric to the right with ligamentum flavum thickening and facet hypertrophy results in mild spinal canal narrowing and no significant neural foraminal narrowing.. IMPRESSION: Multilevel degenerative changes of the spine most notable at C5-C6 and C6-C7. At C5-C6 there is disk bulge eccentric to the left which abuts the ventral aspect of the cord with possible mild compression. At C6-C7 there is moderate spinal canal narrowing and mild/moderate bilateral neural foraminal narrowing. For detailed level by level description please see above. Edema-like marrow change in the inferior aspect of C6 and superior aspect of C7 with irregularity of the superior endplate of C7 favors type II Modic change with developing Schmorl's node.. PROCEDURE: XR THORACIC SPINE: 01/06/2023 CLINICAL INFORMATION: pain COMPARISON: 09/10/2021 The thoracic spine is in satisfactory alignment. Degenerative changes with disk space narrowing and osteophyte formation. No new vertebral body height loss. IMPRESSION: Redemonstration of degenerative change of the thoracic spine with disk space narrowing and osteophyte formation. No acute osseous findings.. Injection Hx - See Vaccination Tab Compliance: UDS/Yohan Updated Yohan was reviewed today and is appropriate. Last UDS confirmation: 02/03/2023 UDS was negative She reports that this is due to only taking medication intermittently. Plan: Hx of Cirrohosis of the Liver therefore tylenol will be avoided Continue Oxycodone 10 mg - 0.5 mg tab TID prn # 45 ( Oxycodone 10 mg ordered in an attempt to decrease tylenol dosing) Continue Flexeril 10 mg PO BID prn # 60 prn PCP to Continue Neurologic i will continue and adjust Gabapentin 300 mg PO TID # 90 The patient was treated with Lyrica in the past without relief of symptoms. I will add a topical cream as well to help with foot pain Also swelling and pain to the posterior cervical region I will order x rays and provide exercises (12/28/2021) She was provided with an at home exercise regime on 12/28/2022 wtihout relief of symptoms. MRI has been performed and discussed in detail with patient. Thoracic X ray reviewed and placed in chart. #1 b/l Thoracic MBB t5-t7 w chu Dee w Sedation Pt will follow up in clinic for continued evaluation and medication refill in 1 month to discuss pain, review imaging and determine further plan of care. I would categorize this patient as Moderate risk for Abuse based on the patients history of nursing home opioid pain medication. Plan of care includes monthly visits, Yohan Report/Review, Randomized Urine Drug Testing at least quarterly with confirmation to monitor compliance. This is subject to change based on the patient's previous Urine Drug Screens, Yohan Reports , Change in Symptoms, Medication Request Change or Providers Discretion. 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 The electronic translation of spoken language may permit erroneous or at times nonsensical words of phrases to be inadvertently transcribed; Although I have reviewed the note for such errors, some may still exist. [email or web address] Not available 03/10/2023 09:57:59 04/12/2023 04/12/2023 Trudy Peña is a 52-year-old female presents today for new patient evaluation with complaints of chronic low back pain and midthoracic pain. She underwent a lumbar decompression and discectomy in 1994 at the L5-S1 level and subsequently had another discectomy at the L5-S1 level in 2009. This was complicated by infection and she had had an abscess drained later in 2009.She has a hx of Cirrohosis and is currently on Xifaxin treatment. She was unable to tolerate Hydrocodone and in an attempt to avoid further liver toxin medications she was switched to Oxycodone w/o Tylenol. Today: Patient is here for a followup for ongoing mid back pain. Patient states that their pain has stayed the same as compared to their last visit. Patient had a #1 TMBB T5-T7 on 04/07/2023 which offered 95% relief that is ongoing. Due to the relief of symptoms I would greatly recommend a #2 TMBB T5-T7 repeated. Imaging: -X-ray of the thoracic spine from September 2021 showed degenerative changes most notable in the mid thoracic spine with disc space narrowing and anterior osteophyte formation. Pain Scale: Patient's self reported pain level is 6/10 today. Medication is effective and patient denies side effects. The medication allows the patient to perform daily activities of living without severe pain. Patient reports functional gains such as, improved sitting, standing, and walking tolerance as a result of taking the prescribed medications. Patient reports improvement of temperament, depression and or anxiety symptoms related to their chronic pain conditions. To date the patient has shown no aberrant behaviors. Imaging: -X-ray of the thoracic spine from September 2021 showed degenerative changes most notable in the mid thoracic spine with disc space narrowing and anterior osteophyte formation. PROCEDURE: MR LUMBAR SPINE WO CONTRAST: 08/23/2022 CLINICAL INFORMATION: M96.1 COMPARISON: MRI lumbar spine 03/28/2015. Lumbar spine radiographs 09/10/2021. No acute fracture or subluxation of the lumbar spine. No aggressive marrow signal abnormality. Multilevel degenerative endplate change. Mild scoliosis. Susceptibility artifact posterior to the L4-L5 levels most compatible with postsurgical change. Visualized portions of the abdomen and pelvis are without acute abnormality. Multilevel spondylotic change of the spine as follows: T12-L1 - mild broad-based disk bulge and bilateral facet arthropathy. No significant spinal canal or neuroforaminal narrowing. L1-L2 - mild broad-based disk bulge and bilateral facet arthropathy. No significant spinal canal or neuroforaminal narrowing. L2-L3 - mild broad-based disk bulge and bilateral facet arthropathy. Minimal right neuroforaminal narrowing. No significant spinal canal narrowing. L3-L4 - mild broad-based disk bulge and bilateral facet arthropathy. Minimal right neuroforaminal narrowing. No significant spinal canal narrowing. L4-L5 - broad-based disk bulge eccentric to the right with bilateral facet arthropathy. Moderate right neuroforaminal narrowing. There is relative close abutment of exiting nerve root far laterally via disk material. Mild to moderate left neuroforaminal narrowing. Mild to moderate spinal canal narrowing. L5-S1 - mild broad-based disk bulge eccentric to the left with bilateral facet arthropathy. Moderate left neuroforaminal narrowing. No significant spinal canal narrowing. IMPRESSION: No acute fracture or subluxation of the lumbar spine. Mild scoliosis. Susceptibility artifact posterior to the L4-L5 levels most compatible with postsurgical change. Multilevel spondylotic change of the spine as above. PROCEDURE: MR CERVICAL SPINE WO CONTRAST: 03/01/2023 CLINICAL INFORMATION: neck pain neck pain Reversal lordotic curvature of the cervical spine.. There is no evidence of acute fracture, or dislocation. The height of the vertebral bodies are well preserved. There is edema neuro changes in the inferior aspect of C6 and superior aspect of C7. Irregularity in the superior endplate of C7.. Multilevel disk desiccation. The included portions of the posterior fossa and the cervical cord show no focal signal abnormalities. C2-C3: No significant spinal canal or neural foraminal narrowing.. C3-C4: Broad disk bulge with uncovertebral hypertrophy results in no significant spinal canal or neural foraminal narrowing.. C4-C5: Broad disk bulge with ligamentum thickening and uncovertebral hypertrophy results in [id number]-[id number] spinal canal narrowing and bilateral neural foraminal narrowing.. C5-C6: Broad disk bulge eccentric to the left with ligamentum flavum thickening and uncovertebral hypertrophy results in moderate spinal canal narrowing and mild bilateral neural foraminal narrowing. This abuts the ventral aspect of the cord.. C6-C7: Broad disk bulge with uncovertebral hypertrophy and ligamentum flavum thickening results in moderate spinal canal narrowing and [id number] bilateral neural foraminal narrowing.. C7-T1: Broad disk bulge eccentric to the right with ligamentum flavum thickening and facet hypertrophy results in mild spinal canal narrowing and no significant neural foraminal narrowing.. IMPRESSION: Multilevel degenerative changes of the spine most notable at C5-C6 and C6-C7. At C5-C6 there is disk bulge eccentric to the left which abuts the ventral aspect of the cord with possible mild compression. At C6-C7 there is moderate spinal canal narrowing and mild/moderate bilateral neural foraminal narrowing. For detailed level by level description please see above. Edema-like marrow change in the inferior aspect of C6 and superior aspect of C7 with irregularity of the superior endplate of C7 favors type II Modic change with developing Schmorl's node.. PROCEDURE: XR THORACIC SPINE: 01/06/2023 CLINICAL INFORMATION: pain COMPARISON: 09/10/2021 The thoracic spine is in satisfactory alignment. Degenerative changes with disk space narrowing and osteophyte formation. No new vertebral body height loss. IMPRESSION: Redemonstration of degenerative change of the thoracic spine with disk space narrowing and osteophyte formation. No acute osseous findings.. Injection Hx - See Vaccination Tab Compliance: UDS/Yohan Updated Yohan was reviewed today and is appropriate. Last UDS confirmation: 02/03/2023 UDS was negative She reports that this is due to only taking medication intermittently. Plan: Hx of Cirrohosis of the Liver therefore tylenol will be avoided Continue Oxycodone 10 mg - 0.5 mg tab TID prn # 45 ( Oxycodone 10 mg ordered in an attempt to decrease tylenol dosing) Continue Flexeril 10 mg PO BID prn # 60 prn PCP to Continue Neurologic i will continue Gabapentin 300 mg PO TID # 90 The patient was treated with Lyrica in the past without relief of symptoms. I will add a topical cream as well to help with foot pain Also swelling and pain to the posterior cervical region I will order x rays and provide exercises (12/28/2021) She was provided with an at home exercise regime on 12/28/2022 and continues with chronic pain as of 04/12/2023 #2 b/l Thoracic MBB t5-t7 w chu Price w Sedation Pt will follow up in clinic for continued evaluation and medication refill in 1 month to discuss pain, review imaging and determine further plan of care. I would categorize this patient as Moderate risk for Abuse based on the patients history of nursing home opioid pain medication. Plan of care includes monthly visits, Yohan Report/Review, Randomized Urine Drug Testing at least quarterly with confirmation to monitor compliance. This is subject to change based on the patient's previous Urine Drug Screens, Yohan Reports , Change in Symptoms, Medication Request Change or Providers Discretion. 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 The electronic translation of spoken language may permit erroneous or at times nonsensical words of phrases to be inadvertently transcribed; Although I have reviewed the note for such errors, some may still exist. [email or web address] Not available 04/12/2023 18:26:44 Plan of Treatment Reminders Order Date Submit Date Provider Last Modified By Organization Details Last Modified Time Details Appointments MD FOLLOW UP 2024 05:10P M SHANI TORO MD Not available Not available Not available Lab drug screen, urine - Qualitati ve LCMS Screen Panel 2022 023 [facility], [address] [place] [address], [id number], 04/16/2023 11:01:32 drug screen, urine - Qualitati ve LCMS Screen Panel 2022 023 [facility], [address] [place] [address], [id number], 02/15/2023 10:00:29 drug screen, urine - Qualitati ve LCMS Screen Panel 2022 023 [facility], [address] [place] [address], [id number], 01/01/2023 13:51:47 Referral None recorded. Procedures medial branch block, thoracic (PROC) [email or web address], [address], 04/13/2023 13:38:21 medial branch block, thoracic (PROC) 20[email or web address], [address], 03/22/2023 09:09:19 Surgeries None recorded. Imaging MRI, cervical spine, w/o contrast 2022 [email or web address], [address], 02/15/2023 11:53:50 XR, cervical spine, 2 or 3 view 2022 [email or web address], [address], 01/04/2023 06:49:57 XR, thoracic spine, 3 view 2022 [email or web address], [address], 01/04/2023 06:49:57 Medication Orders gabapenti n 300 mg capsule 2022 023 [facility], [address] [place] [address], [id number], 04/13/2023 09:22:39 Rx Alternati ves General Compound Cream 2022 023 [facility], [address], [place], [address], 04/12/2023 18:29:39 oxycodone 10 mg tablet 2022 023 [facility], [address] [place] [address], [id number], 05/04/2023 14:44:14 cyclobenz aprine 10 mg tablet 2022 023 [facility], [address] [place] [address], [id number], 04/13/2023 09:23:09 gabapenti n 300 mg capsule 2022 023 [facility], [address] [place] [address], [id number], 03/10/2023 11:32:23 Rx Alternati ves General Compound Cream 2022 023 [facility], [address], [place], [address], 03/10/2023 09:41:54 oxycodone 10 mg tablet 2022 023 [facility], [address] [place] [address], [id number], 03/10/2023 11:33:17 cyclobenz aprine 10 mg tablet 2022 023 [facility], [address] [place] [address], [place], [id number], 03/10/2023 11:32:49 gabapenti n 300 mg capsule 2022 023 [facility], [address] [place] [address], [id number], 02/03/2023 10:56:57 oxycodone 10 mg tablet 2022 023 [facility], [address] [place] [address], [id number], 02/04/2023 09:39:24 cyclobenz aprine 10 mg tablet 2022 023 [facility], [address] [place] [address], [id number], 02/03/2023 10:57:21 gabapenti n 300 mg capsule 2022 023 [facility], [address] [place] [address], [id number], 12/29/2022 09:40:43 oxycodone 10 mg tablet 2022 023 [facility], [address] [place] [address], [id number], 12/29/2022 08:18:33 cyclobenz aprine 10 mg tablet 2022 023 [facility], [address] [place] [address], [id number], 01/06/2023 14:22:53 Patient TargetsNo targets recorded. Patient Instructions Encounter Date Encounter Id Patient Instructions Last Modified By Organization Details Last Modified Time 12/28/2022 [id number] neck pain: care instructions [email or web address] Not available 12/28/2022 18:03:59 healthy upper back: exercises Not available 12/28/2022 18:03:36 Reason for Referral None Reported. Results Created Date Observation Date Name Description Value Unit Range Abnormal Flag Note LastModifiedBy Organization Detail LastModifiedTime 01/07/20 23 01/06/2023 XR, cervi avtar spine , 2 or 3 view No observ ation record ed. vidya [place] [address], [address], 01/13/2023 07:14:40 01/07/20 23 01/06/2023 XR, thora cic spine , 3 view No observ ation record ed. vidya [place] [address], [place], [address], 01/13/2023 07:14:24 Result Notes None recorded. Problems Name Problem SNOMED Code Status Onset Date Resolution Date Notes Provider Name and Address Organization Details Recorded Time Diabetes mellitus 85700283 Active 2021 Leo Jacome null, [place] - [facility] 2 06:09:30 Post-laminecto my syndrome 36483117 Active 2022 Lupe Etienne null, [place] - [facility] 3 17:07:52 Overweight 617817070 Active 2022 Perla Gibson null, [place] - [facility] 3 17:44:25 Lumbar post-laminecto my syndrome 022819542 Active 2022 Perla Gibson null, [place] - [facility] 3 18:40:18 Lumbosacral spondylosis without myelopathy 25738124 Active 2022 ePrla Gibson null, [place] - [facility] 3 18:40:18 Myalgia/myosit is - multiple 129715183 Active 2022 Perla Gibson null, [place] - [facility] 3 18:40:18 Lumbar radiculopathy 712373245 Active 2022 Perla Gibson null, [place] - [facility] 3 18:40:18 Thoracic back pain 591057393 Active 2022 Perla Gibson null, [place] - [facility] 3 09:33:04 Neck pain 23513619 Active 2022 Perla Gibson null, [place] - [facility] 3 09:33:04 Cervical radiculopathy 84512232 Active 2022 Perla Gibson null, [place] - [facility] 3 06:55:27 Thoracic spondylosis 817305826 Active 2022 Perla Gibson null, [place] - [facility] 3 06:55:27 Problem Notes None recorded. Procedures Surgical History Date Name Laterality Status Provider Name and Address Organization Details Recorded Time 04/07/20 23 Thoracic MBB (2 Level Bilateral) completed Josie [place] - [facility] 04/07/2023 09:27:18 12/15/19 23 Lumbar RFA (2 Level Bilateral) completed Josie [facility] - [facility] 12/14/2022 14:55:34 11/05/19 23 Diagnostic Lumbar MBB (2 Level Bilateral) completed Ale Finch [place] - [facility] 11/04/2022 09:29:25 09/23/19 23 Diagnostic Lumbar MBB (2 Level Bilateral) completed Josie [place] - [facility] 09/22/2022 15:40:12 01/10/20 10 operation on lumbar spine completed Ale [facility] - [facility] 05/25/2022 16:30:19 07/12/19 10 Lumbar Discectomy/Decompre ssion completed Ale Finch [place] - [facility] 05/25/2022 16:28:53 07/12/18 95 Lumbar Discectomy/Decompre ssion completed Ale Finch [place] - [facility] 05/25/2022 16:28:29 Cholecystectomy completed Leo [facility] - [facility] 05/25/2022 06:14:35 ligation of fallopian tube completed Leo [place] - [facility] 05/25/2022 06:14:41 Breast Surgery completed Ale Ar[place] - [facility] 05/25/2022 16:26:33 Imaging Results None recorded. Procedure Notes None recorded. Medical Equipment None Reported. Allergies Allergen ID Allergen Name Allergen Category Reaction Reaction Severity Criticality Documentation Date Start Date Code Code System Note Provider Name and Address Organization Details Recorded Time 646021 Substance with sulfonami de structure and antibacte rial mechanism of action (substanc e) medicatio n itching rash Not available Not available Not available 05/25/2022 64765 8003 SNOMED LeoKIKE Dee [facility] 2 06:08:56 047122 Betadine medicatio n itching rash Not available Not available Not available 05/25/2022 81060 0 RxNorm KIKE Allan [facility] 2 06:09:06 980308 oxycodone medicatio n other Not available Not available 05/25/2022 7804 RxNorm KIKE Allan [facility] 2 06:09:13 [id number] iodine medicatio n itching rash Not available Not available Not available 05/25/2022 5933 RxNorm KIKE Rowell [facility] 2 16:25:36 Medications Name Sig Start Date Stop Date Status Note LastModified by Organization Details LastModified Time Rx Alternative s General Compound Cream Apply to lower legs and feet 3=4 times a prn 2022 active Not Available Not Available Not Avai lable Rx Alternative s General Compound Cream Apply to lower legs and feet 3=4 times a prn 2022 active Not Available Not Available Not Avai lable amantadine HCl 100 mg tablet 1 tablet daily active Not Available Not Available No t Available cyclobenzap rine 10 mg tablet TAKE 1 TABLET TWICE A DAY BY ORAL ROUTE NEEDED. active Not Available Not Available No t Available pramipexole 1 mg tablet TAKE ONE TABLET BY MOUTH TWICE DAILY 05/25 completed Not Available Not Available Not Available methocarbam ol 500 mg tablet Take 1 tablet twice a day by oral route as needed for 30 days. 12/28 completed Not Available Not Available Not Available ropinirole 1 mg tablet TAKE ONE TABLET BY MOUTH THREE TIMES A DAY active Not Available Not Available No t Available trazodone 50 mg tablet TAKE 1 1/2 AT BEDTIME 07/20 completed Not Available Not Available Not Available hydrocodone 5 mg-acetamin ophen 325 mg tablet Take 1 tablet 3 times a day by oral route as needed for 30 days. 09/14 completed Not Available Not Available Not Available metoprolol succinate ER 200 mg tablet,exte nded release 24 hr TAKE ONE TABLET BY MOUTH ONCE DAILY 05/25 completed Not Available Not Available Not Available lisinopril 20 mg tablet TAKE ONE TABLET BY MOUTH DAILY active Not Available Not Available No t Available ondansetron HCl 4 mg tablet TAKE 1 TABLET PUFF THREE TIMES DAILY NEEDED FOR NAUSEA 09/14 completed Not Available Not Available Not Available metoprolol succinate ER 100 mg tablet,exte nded release 24 hr TAKE TWO TABLETS BY MOUTH EVERY DAY active Not Available Not Available No t Available potassium chloride ER 10 mEq tablet,exte nded release TAKE ONE TABLET BY MOUTH ONCE DAILY NEEDED WITH LASIX 05/25 completed Not Available Not Available Not Available peg-electro lyte solution 420 gram oral solution AT 5pm on Saturday 06/09, mix and drink 3/4 of the jug, drink the remaining 1/4 of the jug 5 hours before you leave your house on 06/10 completed Not Available Not Available Not Available amitriptyli ne 50 mg tablet TAKE TWO TABLETS BY MOUTH AT BEDTIME 05/25 completed Not Available Not Available Not Available spironolact one 25 mg tablet TAKE ONE TABLET BY MOUTH ONCE DAILY 02/03 completed Not Available Not Available Not Available potassium chloride ER 20 mEq tablet,exte nded release(par t/cryst) TAKE ONE TABLET BY MOUTH TWO TIMES A DAY active Not Available Not Available No t Available Humalog U-100 Insulin 100 unit/mL subcutaneou s solution INJECT 10 UNITS THREE TIMES A DAY WITH EACH MEAL PLUS SLIDING SCALE. MAX DAILY DOSE 66 UNITS 02/03 completed Not Available Not Available Not Available baclofen 10 mg tablet TAKE ONE TABLET BY MOUTH TWICE DAILY 05/25 completed Not Available Not Available Not Available simvastatin 20 mg tablet TAKE ONE TABLET BY MOUTH DAILY 03/10 completed Not Available Not Available Not Available metformin 1,000 mg tablet TAKE ONE TABLET TWO TIMES A DAY 09/14 completed Not Available Not Available Not Available lansoprazol e 30 mg capsule,del ayed release TAKE ONE CAPSULE BY MOUTH EVERY DAY active Not Available Not Available No t Available lidocaine 5 % topical patch APPLY 1 PATCH TO PAINFUL AREA( ON INTACT SKIN) ONCE DAILY. WEAR 12 HOURS ON THEN REMOVE FOR 12 HOURS. active Not Available Not Available No t Available gabapentin 300 mg capsule TAKE 1 CAPSULE 3 TIMES A DAY BY ORAL ROUTE DIRECTED FOR 30 DAYS. active Not Available Not Available No t Available bumetanide 1 mg tablet TAKE TWO TABLETS BY MOUTH EVERY MORNING active Not Available Not Available No t Available hydroxyzine HCl 25 mg tablet TAKE ONE TABLET BY MOUTH THREE TIMES A DAY NEEDED FOR ITCHING active Not Available Not Available No t Available bisacodyl 5 mg tablet,zee yed release TAKE 4 TABLETS AT 9 IN THE MORNING ON Wednesday DIRECTED 05/25 completed Not Available Not Available Not Available furosemide 20 mg tablet TAKE ONE TABLET BY MOUTH DAILY 11/02 completed Not Available Not Available Not Available gabapentin 100 mg capsule TAKE ONE CAPSULE BY MOUTH TWO TIMES A DAY 03/10 completed Not Available Not Available Not Available ergocalcife rol (vitamin D2) 1,250 mcg (50,000 unit) capsule TAKE 1 CAPSULE BY MOUTH EVERY WEEK active Not Available Not Available No t Available Promethegan 25 mg rectal suppository INSERT 1 SUPPOSITO RY RECTALLY THREE TIMES DAILY NEEDED 07/20 completed Not Available Not Available Not Available metformin ER 500 mg tablet,exte nded release 24 hr TAKE TWO TABLETS BY MOUTH AFTER SUPPER. DO NOT CRUSH, CHEW, OR SPLIT active Not Available Not Available No t Available amitriptyli ne 100 mg tablet TAKE ONE TABLET BY MOUTH AT BEDTIME 05/25 completed Not Available Not Available Not Available spironolact one 50 mg tablet TAKE 1 TABLET BY MOUTH ONCE DAILY active Not Available Not Available No t Available diazepam 5 mg tablet TAKE 1-2 TABLETS BY MOUTH BEFORE PLANNED PROCEDURE 09/14 completed Not Available Not Available Not Available buspirone 15 mg tablet TAKE 1 TABLET BY MOUTH 4 TIMES A DAY 05/25 completed Not Available Not Available Not Available Citroma oral solution DIRINK FIRST BOTTLE AT 6 IN THE EVENING ON Wednesday AND DRINK 2ND BOTTLe AT 9 IN THE MORNING ON SATURDAY 06/09 DIRECTED 05/25 completed Not Available Not Available Not Available escitalopra m 10 mg tablet TAKE ONE TABLET EVERY DAY active Not Available Not Available No t Available escitalopra m 20 mg tablet TAKE ONE TABLET BY MOUTH ONCE DAILY 05/25 completed Not Available Not Available Not Available bupropion HCl XL 300 mg 24 hr tablet, extended release TAKE ONE TABLET BY MOUTH EVERY DAY active Not Available Not Available No t Available BD Ultra-Fine Mini Pen Needle 31 gauge x 3/16 USE WITH INSULIN 5 TIMES A DAY 05/25 completed Not Available Not Available Not Available lactulose 10 gram/15 mL oral solution TAKE 15 ML BY MOUTH THREE TIMES A DAY active Not Available Not Available No t Available pregabalin 50 mg capsule TAKE ONE CAPSULE BY MOUTH IN THE MORNING AND AT BEDTIME 02/03 completed Not Available Not Available Not Available BD Ultra-Fine Short Pen Needle 31 gauge x 5/16 USE WITH INSULIN 5 TIMES A DAY 05/25 completed Not Available Not Available Not Available FeroSul 325 mg (65 mg iron) tablet TAKE ONE TABLET BY MOUTH ONCE DAILY active Not Available Not Available No t Available insulin glargine (U-100) 100 unit/mL (3 mL) subcutaneou s pen INJECT 30 UNITS IN THE MORNING AND IN THE EVENING. TITRATE TO TARGET BLOOD GLUCOSE. MAX DAILY DOSE 100 UNITS active Not Available Not Available No t Available Humalog KwikPen (U-100) Insulin 100 unit/mL subcutaneou s INJECT 10 UNITS THREE TIMES A DAY BEFORE MEALS PLUS SLIDING SCALE. MAX DAILY DOSE 50 UNITS active Not Available Not Available No t Available oxycodone 10 mg tablet TAKE 0.5 TABLETS 3 TIMES A DAY BY ORAL ROUTE NEEDED FOR 30 DAYS. active Not Available Not Available No t Available diclofenac 1 % topical gel apply 2 grams TO affected area FOUR TIMES DAILY 09/14 completed Not Available Not Available Not Available OneTouch Delica Lancets 33 gauge CHECK GLUCOSE THREE TIMES DAILY 09/14 completed Not Available Not Available Not Available Xifaxan 550 mg tablet TAKE ONE TABLET BY MOUTH IN THE MORNING AND AT BEDTIME active Not Available Not Available No t Available BD Ultra-Fine Candie Pen Needle 32 gauge x 5/32 USE 2 PER DAY active Not Available Not Available No t Available OneTouch Verio test strips CHECK BLOOD GLUCOSE THREE TIMES DAILY 09/14 completed Not Available Not Available Not Available BD Insulin Syringe Ultra-Fine 1 mL 31 gauge x /16 USE TO INJECT INSULIN WITH EACH MEAL DIRECTED 09/14 completed Not Available Not Available Not Available Jardiance 25 mg tablet TAKE ONE TABLET BY MOUTH EVERY DAY active Not Available Not Available No t Available OneTouch Verio Flex Meter CHECK GLUCOSE THREE TIMES DAILY 05/25 completed Not Available Not Available Not Available Xiidra 5 % eye drops in a dropperette INSTILL 1 DROP IN EACH EYE TWO TIMES A DAY active Not Available Not Available No t Available Dexcom G6 Sensor device CHANGE EVERY 10 DAYS DIRECTED active Not Available Not Available No t Available Dexcom G6 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 MAX DOSE OF 1 TABLET PER 24 HOURS. 30-DAY SUPPLY. IF HAVING MORE THAN 15 MIGRAINES PER MONTH CONTACT PRESCRIBE R active Not Available Not Available No t Available Ozempic 0.25 mg or 0.5 mg (2 mg/3 mL) subcutaneou s pen injector INJECT 0.5 MG SUBCUTANE OUSLY ONCE WEEKLY active Not Available Not Available No t Available Vitals Date Recorded Body height Body mass index (BMI) Body weight Oxygen saturation Oxygen saturation in Arterial blood by Pulse oximetry Heart rate Systolic blood pressure Diastolic blood pressure Provider Name and Address Organization Details Last Updated DateTime 3 170.18 cm 33.7 kg/m2 48502.3 6 g 96 % 96 % 85 /min 90 mm[Hg] 57 mm[Hg] Perla Gibson [facility] 3 17:48:30 Date Recorded Body height Body mass index (BMI) Body weight Oxygen saturation Oxygen saturation in Arterial blood by Pulse oximetry Heart rate Systolic blood pressure Diastolic blood pressure Provider Name and Address Organization Details Last Updated DateTime 3 170.18 cm 34.6 kg/m2 888984. 91 g 99 % 99 % 70 /min 84 mm[Hg] 62 mm[Hg] Perla Gibson [facility] 3 09:48:44 Date Recorded Body height Body mass index (BMI) Body weight Oxygen saturation Oxygen saturation in Arterial blood by Pulse oximetry Heart rate Systolic blood pressure Diastolic blood pressure Provider Name and Address Organization Details Last Updated DateTime 3 170.18 cm 34.9 kg/m2 428706. 1 g 99 % 99 % 103 /min 113 mm[Hg] 75 mm[Hg] Perla Gibson [facility] 3 09:23:21 Date Recorded Body height Body mass index (BMI) Body weight Oxygen saturation Oxygen saturation in Arterial blood by Pulse oximetry Heart rate Systolic blood pressure Diastolic blood pressure Provider Name and Address Organization Details Last Updated DateTime 3 170.18 cm 34.3 kg/m2 14004.7 3 g 97 % 97 % 83 /min 126 mm[Hg] 77 mm[Hg] [facility] 3 17:56:01 Social History Question Answer Notes LastModified by Organizat ion Details LastModified Time Tobacco Smoking Status Current Every Day Sm[facility] 05/25/2022 16:28:10 Do You Have An Advance Directive? No Information n ot available 05/25/2022 In The 14 Days Before Symptom Onset, Have You Had Close Contact With A Laboratory-confirm ed COVID-19 While That Case Was Ill? No API-27 Information n ot available 11/04/2022 In The 14 Days Before Symptom Onset, Have You Had Close Contact With A Person Who Is Under Investigation For COVID-19 While That Person Was Ill? No API-27 Information not available 11/04/2022 What Type Of Diet Are You Following? DIABETIC Information n ot available 05/25/2022 What Is The Highest Grade Or Level Of School You Have Completed Or The Highest Degree You Have Received? [id number] API-27 Information not available 11/04/2022 What Was The Date Of Your Most Recent Tobacco Screening? 05/25/2022 API-27 Information not available 11/04/2022 What Is Your Relationship Status? Information not available 05/25/2022 How Much Tobacco Do You Smoke? 0.25 PPD Information not available 05/25/2022 How Many Years Have You Smoked Tobacco? 7 API-27 Information not available 11/04/2022 Sex: Female Functional Status Question Answer Note LastModified by Organizat ion Details LastModified Time Do you use any illicit or recreational drugs? No API-27 Information not available 11/04/2022 What is your level of alcohol consumption? None Information not available 05/25/2022 Are you currently employed? No API-27 Information not available 11/04/2022 Are you able to walk? YESWOREST Information not available 05/25/2022 What is your exercise level? None Information not available 05/25/2022 Mental Status None recorded. Family History Relationship Description Onset Age of this Age Resolved Age Notes LastModified by Organization Details LastModified Time Paternal Grandfather Hypertensive disorder marflin Not available 2021 16:25:39 Paternal Grandfather Heart disease marflin Not available 2021 16:25:39 Mother Hypertensive disorder marflin Not available 2021 16:25:39 Mother Rheumatoid arthritis marflin Not available 2021 16:25:39 Father Heart disease marflin Not available 2021 16:25:39 Father Hypertensive disorder marflin Not available 2021 16:25:39 Unspecified Relation Cerebrovascu lar accident marflin Not available 16:25:39 Unspecified Relation Fibromyalgia marflin Not available 05/12 16:25:39 Brother Hypertensive disorder marflin Not available 2021 16:25:39 Brother Diabetes mellitus marflin Not available 2021 16:25:39 Sister Hypertensive disorder marflin Not available 2021 16:25:39 Paternal Grandmother Heart disease marflin Not available 2021 16:25:39 Paternal Grandmother Diabetes mellitus marflin Not available 2021 16:25:39 Paternal Grandmother Hypertensive disorder marflin Not available 2021 16:25:39 Medical History Condition Response Anxiety Disorder Y Diabetes Y Seizure Disorder N CHF Y Osteoarthritis Y Head Trauma/Injury N Neurosurgery Y Skin Disorder Y Depression Y DVT N Substance Abuse N High Cholesterol Y Liver Disease Y Rheumatoid Arthritis N Chronic Low Back Pain Y Fibromyalgia N Hypertension Y Autoimmune Disease Y Gynecological HistoryNo gynecological history recorded. Obstetrics History GPAL:G 0 P 0 0 0 0 Past Encounters Encounter ID Performer Location Encounter Start Date Encounter Closed Date Diagnosis/Indication Diagnosis SNOMED-CT Code Diagnosis ICD10 Code Diagnosis Note [id number] Jackson Warner MD [address] [address] 05/25/2022 15:45:55 05/25/2022 17:05:28 Long-term drug therapy 857758633 Z79.899 ORT and PHQ-9 testing was completed to evaluate the patient's psychosoci al health to better determine baseline risk as we consider initiating opioid medication s. The patient's ORT score of 1 indicates low risk potential for medication misuse. The patients PHQ-9 of 14 indicates moderate depression . Degenerati on of thoracic intervertebral disc 18029706 M51.34 Thoracic spondylosis 387 485277 M47.814 Lumbar post-laminectomy syndrome 800775767 M96.1 Lumbar radiculopathy 128 454101 M54.16 [id number] Jackson Warner MD [address] [address] 07/20/2022 16:13:30 07/20/2022 17:39:44 Lumbar radiculopathy 769890939 M54.16 Lumbar post-laminectomy syndrome 572028122 M96.1 Long-term drug therapy 421701746 Z79.899 no UDS 07/20/2022 Myalgia/my ositis - multiple 575282505 M79.10 [id number] SHANI TORO MD [address] [address] 08/17/2022 17:23:46 08/17/2022 18:33:19 Lumbar post-laminectomy syndrome 020691251 M96.1 Myalgia/my ositis - multiple 302716937 M79.10 Lumbar radiculopathy 128 944745 M54.16 Long-term drug therapy 211562004 Z79.899 no UDS 07/20/2022 Overweight 995182051 E66 .3 Hypertensi on screening 979883425 Z13.6 Lumbosacra l spondylosis without myelopathy 98656127 M47.926 [id number] Gary Stewart MD [address] [address] 09/14/2022 16:19:57 09/14/2022 17:13:35 Lumbar post-laminectomy syndrome 923733588 M96.1 A prescripti on for opioids was prescribed today given the failure of more conservati ve treatment options. The risks, benefits, and alternativ es were discussed in detail with the patient. Goals of improved activity and analgesia will continue to be monitored in subsequent encounters . There is no evidence of addiction or aberrancy to date. Lumbosacra l spondylosis without myelopathy 47333339 M47.817 Myalgia/my ositis - multiple 859284200 M79.10 Lumbar radiculopathy 128 515431 M54.16 Long-term drug therapy 666666698 Z79.899 No UDS on 09/14/2022 ORT and PHQ-9 testing was completed to evaluate the patient's psychosoci al health to better determine baseline risk as we consider initiating opioid medication s. The patient's ORT score of 1 indicates low risk potential for medication misuse. The patients PHQ-9 of 10 indicates moderate depression . Based on the above testing I would consider the patient to be moderate risk. Overweight 989524787 E66 .3 Hypertensi on screening 102959819 Z13.6 [id number] SHANI TORO MD [address] [address] 09/22/2022 14:29:08 09/22/2022 15:40:36 Spondylosis without myelopathy 55843165 M47.010 [id number] SHANI TORO MD [address] [address] 11/02/2022 18:02:21 11/02/2022 18:56:45 Lumbar post-laminectomy syndrome 425131567 M96.1 A prescripti on for opioids was prescribed today given the failure of more conservati ve treatment options. The risks, benefits, and alternativ es were discussed in detail with the patient. Goals of improved activity and analgesia will continue to be monitored in subsequent encounters . There is no evidence of addiction or aberrancy to date. Lumbosacra l spondylosis without myelopathy 15586925 M47.817 Myalgia/my ositis - multiple 830496096 M79.10 Lumbar radiculopathy 128 895438 M54.16 Long-term drug therapy 411846053 Z79.046 [id number] SHANI TORO MD [place] [address] 6 11/04/2022 08:24:23 11/04/2022 09:29:56 Lumbosacral spondylosis without myelopathy 33486145 M47.751 [id number] SHANI TORO MD [place] [address] 6 12/14/2022 13:51:26 12/14/2022 14:56:02 Lumbosacral spondylosis without myelopathy 24590327 M47.020 [id number] Bharti Marks, CLAU [place] [address] 6 12/28/2022 17:30:49 12/28/2022 18:05:24 Lumbar post-laminectomy syndrome 541447557 M96.1 A prescripti on for opioids was prescribed today given the failure of more conservati ve treatment options. The risks, benefits, and alternativ es were discussed in detail with the patient. Goals of improved activity and analgesia will continue to be monitored in subsequent encounters . There is no evidence of addiction or aberrancy to date. Myalgia/my ositis - multiple 927931219 M79.10 Lumbar radiculopathy 128 134546 M54.16 Long-term drug therapy 808292072 Z79.899 Thoracic back pain 44591 8004 M54.6 Neck pain 86022134 M54.2 [id number] SHANI TORO MD [place] [address] 6 02/03/2023 09:22:17 02/03/2023 10:33:12 Lumbar post-laminectomy syndrome 132470216 M96.1 A prescripti on for opioids was prescribed today given the failure of more conservati ve treatment options. The risks, benefits, and alternativ es were discussed in detail with the patient. Goals of improved activity and analgesia will continue to be monitored in subsequent encounters . There is no evidence of addiction or aberrancy to date. Lumbar radiculopathy 128 M54.16 Myalgia/my ositis - multiple 640271756 M79.10 Long-term drug therapy 459421775 Z79.899 Cervical radiculopathy 20551570 M54.12 Thoracic spondylosis 387 471686 M47.234 [id number] Bharti Marks NP [address] [address] 03/10/2023 09:13:29 03/10/2023 09:46:29 Lumbar post-laminectomy syndrome 265000511 M96.1 A prescripti on for opioids was prescribed today given the failure of more conservati ve treatment options. The risks, benefits, and alternativ es were discussed in detail with the patient. Goals of improved activity and analgesia will continue to be monitored in subsequent encounters . There is no evidence of addiction or aberrancy to date. Lumbar radiculopathy 128 M54.16 Myalgia/my ositis - multiple 763497942 M79.10 Long-term drug therapy 277221899 Z79.899 No UDS on 03/10/2023 Cervical radiculopathy 68750101 M54.12 Thoracic s pondylosis without myelopathy 245992186 M47.702 [id number] Bharti Marks NP [address] [address] 04/12/2023 17:36:14 04/12/2023 18:37:45 Lumbar post-laminectomy syndrome 179522016 M96.1 A prescripti on for opioids was prescribed today given the failure of more conservati ve treatment options. The risks, benefits, and alternativ es were discussed in detail with the patient. Goals of improved activity and analgesia will continue to be monitored in subsequent encounters . There is no evidence of addiction or aberrancy to date. Lumbar radiculopathy 128 M54.16 Myalgia/my ositis - multiple 951837864 M79.10 Thoracic s pondylosis without myelopathy 043264191 M47.814 Cervical radiculopathy 38650293 M54.12 Long-term drug therapy 738109249 Z79.999 [id number] SHANI TORO MD [address] [address] 04/07/2023 08:40:41 04/07/2023 09:27:42 Thoracic spondylosis without myelopathy 748577686 M47.814 Health Concerns Section Related Observation LastModified by Organization Detai ls LastModified Time None Recorded Concern Status LastModified by Organization Details LastModified Time None Recorded Advance Directives Directive N: Payers Insurance Date Sequence Insurance Name Policy Number Policy Lopez Covered Member ID Lopez Member ID Guarantor Name 12/07/2024 1 [employer] [facility] (MEDICAID HMO) Trudy Peña [id number] Trudy Peña Notes Date Note Type Note Provider Name and Address Organization Details Recorded Time 12/28/2022 text/html Follow-up (meds & injections)Reported bypatient.Improvement: Pain is getting better. (Low Back since injection); Pain is the same as compared to last visit. (Mid back) Pain Scores:Average pain- 5/10; Current pain- 7/10; Worst pain- 8/10 Recent Injections:09/22/2022 #1 B/L LMBB L3-5 offered 85% relief x 2 weeks 12/14/2022 Ther #1 B/L RFA L3-5 85% relief Current Analgesics:Opioids- oxycodone; Other adjunct medications- Lyrica (PCP); Reported pain relief- % for hours; Oxycodone 12/28/2022 at Adverse Reactions:No nausea.; No vomiting.; No constipation.; No itching.; No sedation.; No respiratory depression. Functional Assessment/Disability IndexLiving independently.; Able to bathe/groom without assistance.; Walking without assistance. Physical Therapy:Patient states she has been doing HEP for low back since her initial visit on 05/25/2022. States she cannot do them everyday because they make her sore.Thoracic back pain (2)Reported bypatient.Onset:date of onset: (2009) Location:midline; paraspinal: bilateral Duration:constant; varies throughout the day; worse at nighttime Context:started without cause Quality:aching; burning; worsening Aggravating Factors:sitting; standing; walking; lifting; twisting; bending/squatting Alleviating Factors:lying down; rest Associated Symptoms:numbness;ting ling;weakness;popping/ clicking Functional Assessment of ADLsLives independently; Able to bathe/groom without assistance. Oswestry Disability Index (SUHAIL)Score/Date Competed: Prior Imaging:x-ray (09/10/2021 T-spine) Lumbar Surgery:lumbar decompression/discecto my: (1994 L5/S1 Disc/[facility] Dr [facility] in [place] 2009 L5/S1 Disc./ [facility]. Dr Rainey/ Rom[facility] in [place] 01/2010 Abscess drain from spine [facility] [place]) Prior Pain Management:no Interventional Treatment:no prior injections Physical Therapy:completed all recommended PT visits; Facility: ([facility]); dates: (2014); response to therapy: made pain/symptoms worse; Patient saw chiropractor in past with temporary relief Medications History:NSAIDs: (ibu--ineffective naproxen--minimal relief); Muscle relaxants: (baclofen--ineffective ); Neuropathics: (jackie--effective lyrica--can't remember); opioid pain medications: (oxycodone--allergy hydrocodone--effective ) Other Conservative Treatments:chiropracti c treatments: (temp. relief); heat: (ineffective); ice: (ineffective); TENS Unit: (effective) Patient is here for a followup for ongoing mid back pain. Patient states that their pain has stayed the same in the mid back and has gotten better in the low back as compared to their last visit. Patient had a #1 B/L RFA L3-5 on 12/14/2022 which offered 85% relief that is ongoing. Patient states that the injection has helped the low back but she is still having pain in the mid back. Bharti Marks NP [address] [place] [address], [phone], [facility] 12/30/2022 13:40:28 02/03/2023 text/html Follow-up (meds & injections)Reported bypatient.Improvement: Pain is getting worse.(Neck); Pain is the same as compared to last visit. (Low Back) Pain Scores:Average pain- 5/10; Current pain- 7/10; Worst pain- 8/10 Recent Injections:09/22/2022 #1 B/L LMBB L3-5 offered 85% relief x 2 weeks 12/14/2022 Ther #1 B/L RFA L3-5 85% relief Current Analgesics:Opioids- oxycodone; Other adjunct medications- Lyrica (PCP); Reported pain relief- % for hours; Oxycodone 02/03/2023 at Adverse Reactions:No nausea.; No vomiting.; No constipation.; No itching.; No sedation.; No respiratory depression. Functional Assessment/Disability IndexLiving independently.; Able to bathe/groom without assistance.; Walking without assistance. Physical Therapy:Patient states she has been doing HEP for low back since her initial visit on 05/25/2022. States she cannot do them everyday because they make her sore.Thoracic back pain (2)Reported bypatient.Onset:date of onset: (2009) Location:midline; paraspinal: bilateral Duration:constant; varies throughout the day; worse at nighttime Context:started without cause Quality:aching; burning; worsening Aggravating Factors:sitting; standing; walking; lifting; twisting; bending/squatting Alleviating Factors:lying down; rest Associated Symptoms:numbness;ting ling;weakness;popping/ clicking Functional Assessment of ADLsLives independently; Able to bathe/groom without assistance. Oswestry Disability Index (SUHAIL)Score/Date Competed: Prior Imaging:x-ray (09/10/2021 T-spine) Lumbar Surgery:lumbar decompression/discecto my: (1994 L5/S1 Disc/[facility] in [place] 2009 L5/S1 Disc./ [place]. Dr Rainey/ [facility] in [place] 01/2010 [facility] [place] Prior Pain Management:no Interventional Treatment:no prior injections Physical Therapy:completed all recommended PT visits; Facility: ([facility]); dates: (2014); response to therapy: made pain/symptoms worse; Patient saw chiropractor in past with temporary relief Medications History:NSAIDs: (ibu--ineffective naproxen--minimal relief); Muscle relaxants: (baclofen--ineffective ); Neuropathics: (jackie--effective lyrica--can't remember); opioid pain medications: (oxycodone--allergy hydrocodone--effective ) Other Conservative Treatments:chiropracti c treatments: (temp. relief); heat: (ineffective); ice: (ineffective); TENS Unit: (effective) Patient Trudy Peña is here for a followup visit today. Patient feels that their pain has stayed around the same in the low back since the last visit but her neck pain seems to have gotten worse. She reports an overall large increase in posterior cervical pain. She reports intermittent numbness and tingling to the upper extremities with frequency of dropping items. She was provided with an at home exercise regime on 12/28/2022 wtihout relief of symptoms. Therefore MRI will ordered at [facility]. Patient had a cervical spine xray and a thoracic spine xray on 01/06/2023 and it is listed below and reviewed with patient. PROCEDURE: XR CERVICAL SPINE 2-3 VIEWS: 01/06/2023LINICAL INFORMATION: painCOMPARISON: NoneStraightening of the cervical spine, possibly positional. Degenerative changes most notable in the lower cervical spine with disk space narrowing and osteophyte formation. No visibly displaced fractures. No significant vertebral body height loss. No prevertebral soft tissue thickening.IMPRESSION: Degenerative changes of the cervical spine most notable in the lower cervical spine. No acute osseous findings..Report Sign Date: 01/06/2023 6:27 PM, Electronically Signed By: Benjamin Mcgarry MD PROCEDURE: XR THORACIC SPINE: 01/06/2023LINICAL INFORMATION: painCOMPARISON: 09/10/2021The thoracic spine is in satisfactory alignment. Degenerative changes with disk space narrowing and osteophyte formation. No new vertebral body height loss.IMPRESSION:Redemo nstration of degenerative change of the thoracic spine with disk space narrowing and osteophyte formation. No acute osseous findings..Report Sign Date: 01/06/2023 6:26 PM, Electronically Signed By: Benjamin Marks NP [address] [place] [address], [phone], [facility] 02/03/2023 20:47:51 03/10/2023 text/html Follow-up (meds & injections)Reported bypatient.Improvement: Pain is the same as compared to last visit. Pain Scores:Average pain- 5/10; Current pain- 5/10; Worst pain- 8/10 Recent Injections:09/22/2022 #1 B/L LMBB L3-5 offered 85% relief x 2 weeks 12/14/2022 Ther #1 B/L RFA L3-5 85% relief Current Analgesics:Opioids- oxycodone; Other adjunct medications- Lyrica (PCP); Reported pain relief- % for hours; Oxycodone 03/09/2023 at bedtime Adverse Reactions:No nausea.; No vomiting.; No constipation.; No itching.; No sedation.; No respiratory depression. Functional Assessment/Disability IndexLiving independently.; Able to bathe/groom without assistance.; Walking without assistance. Physical Therapy:Patient states she has been doing HEP for low back since her initial visit on 05/25/2022. States she cannot do them everyday because they make her sore.Thoracic back pain (2)Reported bypatient.Onset:date of onset: (2009) Location:midline; paraspinal: bilateral Duration:constant; varies throughout the day; worse at nighttime Context:started without cause Quality:aching; burning; worsening Aggravating Factors:sitting; standing; walking; lifting; twisting; bending/squatting Alleviating Factors:lying down; rest Associated Symptoms:numbness;ting ling;weakness;popping/ clicking Functional Assessment of ADLsLives independently; Able to bathe/groom without assistance. Oswestry Disability Index (SUHAIL)Score/Date Competed: Prior Imaging:x-ray (09/10/2021 T-spine) Lumbar Surgery:lumbar decompression/discecto my: (1994 L5/S1 Disc/[facility] in [place] 2009 L5/S1 Disc./ [place]. Dr Rainey/ [facility] in [place] 01/2010 Abscess drain from spine [facility] [place]) Prior Pain Management:no Interventional Treatment:no prior injections Physical Therapy:completed all recommended PT visits; Facility: ([facility]); dates: (2014); response to therapy: made pain/symptoms worse; Patient saw chiropractor in past with temporary relief Medications History:NSAIDs: (ibu--ineffective naproxen--minimal relief); Muscle relaxants: (baclofen--ineffective ); Neuropathics: (jackie--effective lyrica--can't remember); opioid pain medications: (oxycodone--allergy hydrocodone--effective ) Other Conservative Treatments:chiropracti c treatments: (temp. relief); heat: (ineffective); ice: (ineffective); TENS Unit: (effective) Patient Trudy Peña is here for a followup visit today. Patient feels that their pain has stayed around the same since the last visit. Patient had a cervical spine MRI on 03/01/2023 and it is listed below: PROCEDURE: MR CERVICAL SPINE WO CONTRAST: 03/01/2023LINICAL INFORMATION: neck painneck painReversal lordotic curvature of the cervical spine.. There is no evidence of acute fracture, or dislocation. The height of the vertebral bodies are well preserved. There is edema neuro changes in the inferior aspect of C6 and superior aspect of C7. Irregularity in the superior endplate of C7.. Multilevel disk desiccation. The included portions of the posterior fossa and the cervical cord show no focal signal abnormalities.C2-C3: No significant spinal canal or neural foraminal narrowing..C3-C4: Broad disk bulge with uncovertebral hypertrophy results in no significant spinal canal or neural foraminal narrowing..C4-C5: Broad disk bulge with ligamentum thickening and uncovertebral hypertrophy results in exne-we-cvaedvxp spinal canal narrowing and bilateral neural foraminal narrowing..C5-C6: Broad disk bulge eccentric to the left with ligamentum flavum thickening and uncovertebral hypertrophy results in moderate spinal canal narrowing and mild bilateral neural foraminal narrowing. This abuts the ventral aspect of the cord..C6-C7: Broad disk bulge with uncovertebral hypertrophy and ligamentum flavum thickening results in moderate spinal canal narrowing and vtud-[id number]-zlwcvxxv bilateral neural foraminal narrowing..C7-T1: Broad disk bulge eccentric to the right with ligamentum flavum thickening and facet hypertrophy results in mild spinal canal narrowing and no significant neural foraminal narrowing..IMPRESSION: Multilevel degenerative changes of the spine most notable at C5-C6 and C6-C7. At C5-C6 there is disk bulge eccentric to the left which abuts the ventral aspect of the cord with possible mild compression. At C6-C7 there is moderate spinal canal narrowing and mild/moderate bilateral neural foraminal narrowing. For detailed level by level description please see above.Edema-like marrow change in the inferior aspect of C6 and superior aspect of C7 with irregularity of the superior endplate of C7 favors type II Modic change with developing Schmorl's node..Report Sign Date: 03/01/2023 10:36 AM, Electronically Signed By: Benjamin Marks NP [address] [place] [address], [phone] include 234 beds at the [facility] 03/10/2023 19:20:33 04/12/2023 text/html Thoracic back pa in (2)*Reported bypatient.Onset:date of onset: (2009) Location:midline; paraspinal: bilateral Duration:constant; varies throughout the day; worse at nighttime Context:started without cause Quality:aching; burning; worsening Pain Intensitycurrent pain level: 6/10; average pain level: 5/10; worst pain level: 8/10 Aggravating Factors:sitting; standing; walking; lifting; twisting; bending/squatting Alleviating Factors:lying down; rest Associated Symptoms:numbness;ting ling;weakness;popping/ clicking Functional Assessment of ADLsLives independently; Able to bathe/groom without assistance. Prior Imaging:x-ray (09/10/2021 T-spine) Thoracic/Lumbar Surgery:thoracic/lumba r decompression/discecto my: (1994 L5/S1 Disc/[facility] in [place] 2009 L5/S1 Disc./ [place]. Dr Rainey/ [facility] in [place] 01/2010 Abscess drain from spine [facility] [place]) Interventional Treatment:thoracic medial branch nerve blocks: helped significantly; 04/07/2023 #1 TMBB T5-T7 95% relief ongoing Physical Therapy:Facility: ([facility]); completed all recommended PT visits; dates: (2014); response to therapy: made pain/symptoms worse; Patient saw chiropractor in past with temporary relief Current Analgesics:Hydrocodone /APAP effective; Gabapentin effective; Hydrocodone 04/12/2023 at Gabapentin 04/12/2023 at Medications History:NSAIDs: (ibu--ineffective naproxen--minimal relief); Muscle relaxants: (baclofen--ineffective ); Neuropathics: (jackie--effective lyrica--can't remember); opioid pain medications: (oxycodone--allergy hydrocodone--effective ) Adverse Reaction:No Nausea; No vomiting; No constipation; No itching Other Conservative Treatments:chiropracti c treatments: (temp. relief); heat: (ineffective); ice: (ineffective); TENS Unit: (effective) Prior Pain Management:no Oswestry Disability Index (SUHAIL)Score/Date Competed: (12/14/2022 SUHAIL 70) Patient is here for a followup for ongoing mid back pain. Patient states that their pain has stayed the same as compared to their last visit. Patient had a #1 TMBB T5-T7 on 04/07/2023 which offered 95% relief that is ongoing. Bharti Marks NP [address] [place] [address], [phone], [facility] 04/12/2023 21:44:51 OBGyn Episode No OBEpisode recorded.
--- OUTSIDE RECORDS SUMMARY | 2025-01-02 18:12 | XMS_ITS | Clinical Summary ---
Author Organization [facility] Address [address] [place] [address] Care Team Providers Care Prototype Deicer Assembler Name Role Phone Trevor Rolon DO Primary Care Provider [phone] Mc Grant DO Unavailable [phone] Allergies Active Allergy Reactions Criticality Noted Date Comments Iodine Itching,Rash Medium 10/10/2024 Oxycodone-Acetaminophen Hallucinations Medium 11/13/19 22 Povidone Iodine Hives,Itching,Rash Medium 07/24/2015 Sulfa Drugs Itching,Rash Medium 10/10/2024 Sulfacetamide Hives Medium 07/24/2015 Vortioxetine Hives,Rash Medium 04/09/2020 Wound Dressing Adhesive Other - please d ocument in the comment field Low 11/12/2021 Medications bumetanide (Bumex) 1 MG tablet Take 2 tablets (2 mg) by mouth 1 (one) time each day in the morning. 08/18/19 23 Active lansoprazole (Prevacid) [address] capsule Take 1 capsule (30 mg) by mouth 1 (one) time each day. 08/18/19 23 Active metoprolol succinate XL (Toprol-XL) 100 MG 24 hr tablet Take 2 tablets (200 mg) by mouth 1 (one) time each day. 08/18/19 23 Active hydrOXYzine HCl (Atarax) 25 MG tablet Take 1 tablet (25 mg) by mouth every night. 08/18/19 23 Active simvastatin (Zocor) 20 MG tablet Take 1 tablet (20 mg) by mouth 1 (one) time each day. 08/18/19 23 Active rifAXIMin (Xifaxan) 550 MG tablet Take 1 tablet (550 mg) by mouth 2 (two) times a day. 09/14/19 21 Active potassium chloride CR (Klor-Con M20) 20 MEQ ER tablet Take 1 tablet (20 mEq) by mouth 2 (two) times a day. 08/04/19 23 Active rOPINIRole (Requip) 1 MG tablet Take 1 tablet (1 mg) by mouth 4 (four) times a day. 07/20/19 23 Active ergocalciferol (Vitamin D-2) 1.25 MG (39768 UT) capsule Take 1 capsule (50,000 Units) by mouth. Take only on Tuesdays04/09/20 Active diclofenac (Voltaren) 1 % topical gel apply 2 grams TO affected area FOUR TIMES DAILY 03/24/20 22 Active insulin glargine (Lantus SoloStar) 100 UNIT/ML injection pen Inject 25 Units under the skin 1 (one) time each day in the morning. 04/11/20 20 Active Jardiance 25 MG Take 1 tablet (25 mg) by mouth 1 (one) time each day. 05/13/20 23 Active FeroSul 325 (65 Fe) MG tablet Take 1 tablet (325 mg) by mouth 1 (one) time each day. 04/27/20 23 Active Rimegepant Sulfate (Nurtec) 75 MG tablet dispersible Take 1 tab PO at the onset of a migraine. Do not exceed more than 1 tab in 24 hours. 12/10/19 23 Active busPIRone (Buspar) 7.5 MG tablet take 1 tablet by mouth two times a day as needed for anxiety 09/20/19 25 Active desvenlafaxine (Pristiq) 50 MG 24 hr tablet Take 1 tablet by mouth 1 (one) time each day. Active NovoLOG FLEXPEN 100 UNIT/ML injection pen Take 5 units at breakfast, lunch, and supper if premeal BS >150. Max daily dose 50 units 09/01/19 25 Active hydrOXYzine pamoate (Vistaril) 25 MG capsule TAKE 1 Capsule BY MOUTH THREE TIMES A DAY NEEDED FOR ITCHING 09/20/19 25 Active ondansetron (Zofran) 4 MG tablet Take 1 tablet by mouth every 8 hours as needed. 10/24/19 24 Active promethazine (Phenergan) 25 MG tablet TAKE 1 Tablet BY MOUTH THREE TIMES A DAY NEEDED FOR NAUSEA AND VOMITING 09/20/19 25 Active lisinopril 2.5 MG tablet Take 1 tablet by mouth daily. 08/08/19 25 Active Ozempic, 1 MG/DOSE, 4 MG/3ML solution pen-injector INJECT 1 MG SUBCUTANEOUSLY ONCE A WEEK ON THE SAME DAY EACH WEEK IN THE THIGH, ABDOMEN OR UPPER ARM ROTATING INJECTION SITES 09/20/19 25 Active spironolactone (Aldactone) 100 MG tablet TAKE ONE TABLET BY MOUTH ONCE DAILY FOR FLUID 09/08/19 25 Active Active Problems Problem Noted Date Diagnosed Date Hypertensive retinopathy of both eyes 10/10/2024 Retinal scar of right eye 10/10/2024 High blood pressure 08/25/2022 Iritis 08/25/2022 Restless leg syndrome 08/25/2022 Serratia infection 08/25/2022 Sleep apnea 08/25/2022 Spinal abscess 08/25/2022 Myopia of both eyes 08/25/2022 Visual field defect 08/25/2022 Dry eyes, bilateral 08/25/2022 Nuclear sclerotic cataract of both eyes 08/25/19 23 Ocular migraine 08/25/2022 Anasarca 07/23/2022 Volume overload 07/23/2022 Other cirrhosis of liver 06/19/2022 Overview (08/25/2022): Last Assessment & Plan: See a/p1. Rotator cuff tendinitis, right 02/03/2022 Other visual disturbances 01/16/2022 Overview (08/25/2022): Last Assessment & Plan: Patient educated on findings. Recent MRI is read as negative by radiology, appears negative after self review. Visual field defect was present on 24-2 from early April 2022. Visual field defect was not observed on prior saldana and during exam with confrontation. Patient presented October 2021 with complaints of geometric shapes spinning around in her vision for minutes at a time, and she was speaking with people who did not exist and were not present (not while in office). She states about 1.5 years prior she experienced similar symptoms and her GI in [place] started her on Xifaxan, which reportedly resolved the symptoms, despite a recurrence in October 2021. Her symptoms today have since significantly resolved, per patient. She states she has had no lapses in taking her medication during these periods, although today she is out of the medication and her GI in [place] has discharged her from the practice due to no-show visits. Dr. Rolon in [place] was called to see if he will Rx the medication. Referral to [facility] was made. Patient also has ocular surface dryness throwing off her visual acuity stability. Rx Restasis BID and OTC AT tears QID with warm compresses BID. F/u in early July for refraction/dry eye f/u and suspected hepatic encephalitis labs. Sees [facility] in August. Ammonia, CBC, CMP, INR ordered today. Patient educated on all findings and states understanding of management. Problem of nerve network of low back and pelvis 11/12/2021 Encephalopathy, hepatic 09/13/2020 Overview (08/25/2022): Last Assessment & Plan: See a/p1. 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 02/26/2020 Type 2 diabetes mellitus, uncontrolled 0 Confusion 11/22/2019 Nausea 11/22/2019 GERD (gastroesophageal reflux disease) 0 Obesity 09/10/2019 GOOD (nonalcoholic steatohepatitis) 09/08/2019 DDD (degenerative disc disease), lumbar 07/25/19 16 Neck pain 07/25/2015 Arm numbness 07/25/2015 Numbness of left lower extremity 07/25/2015 Thoracic back pain 07/25/2015 Anxiety and depression 07/24/2015 Diabetes mellitus without complication 6 Hyperlipemia 07/24/2015 Psoriasis 07/24/2015 Psoriatic arthritis 07/24/2015 Ruptured disk 07/24/2015 Encounters Date Type Department Care Team Description 10/10/2024 10:10 AM EDT Ancillary Procedure [facility] [address] [place] [id number] 10/10/2024 8:30 AM EDT Office Visit [facility] [address] [place] [address] Samuel Olivas DO Hypertensive retinopathy of both eyes (Primary Dx); Other visual disturbances; Myopia of both eyes; Dry eyes, bilateral; Nuclear sclerotic cataract of both eyes; Ocular migraine; Diabetes mellitus without complication; Retinal scar of right eye; Visual field defect 10/10/2024 Travel from Last 3 Months Immunizations Immunization Administration Dates Next Due Hep A / Hep B 09/13/2020 Influenza, injectable, quadrivalent, preservativ e free 05/21/2022 Family History Medical History Relation Name Comments Cancer Brother Diabetes Brother Hypertension Brother Cardiac disorder Father Cataracts Father Conversions - Other Father Back pro blem Heart attack Father Hypertension Father Stroke Maternal Grandfather Diabetes Maternal Grandmother Cancer Mother Cataracts Mother Hypertension Mother Non-Hodgkin's lymphoma Mother Hypertension Paternal Grandfather Cardiac disorder Paternal Grandmother Heart attack Paternal Grandmother Hypertension Paternal Grandmother Stroke Paternal Grandmother Diabetes Sister Hypertension Sister Relation Name Status Comments Brother Father Father's Sister Maternal Grandfather Maternal Grandmother Mother Mother's Sister Paternal Grandfather Paternal Grandmother Sister Social History Tobacco Use Types Packs/Day Years Used Date Smoking Tobacco: Former Cigarettes 0.1 10.6 2 012 - 02/2022 Passive Smoke Exposure: Past Smokeless Tobacco: Never Tobacco Cessation:Counseling Given: No Alcohol Use Standard Drinks/Week Comments Not Currently 0 (1 standard drink = 0.6 oz pur e alcohol) not drinking since 2017 PHQ-2 Answer Date Recorded Patient Health Questionnaire-2 Score 5 02/22/2024 PHQ-9 Answer Date Recorded Patient Health Questionnaire-9 Score 12 02/22/2024 Comments Unknown Sex and Gender Information Value Date Recorded Sex Assigned at Female 03/11/2021 7:37 PM EDT Legal Sex Female 8:49 PM EDT Gender Identity Female 03/11/2021 7:37 PM EDT Sexual Orientation Not on file Last Filed Vital Signs Vital Sign Reading Time Taken Comments Blood Pressure 101/71 10/10/2024 9:18 AM EDT Pulse 89 10/10/2024 9:18 AM EDT Temperature 36.6 C (97.9 F) 02/22/2024 7:37 AM EDT Respiratory Rate 16 02/22/2024 7:37 AM EDT Oxygen Saturation 97% 02/22/2024 7:37 AM EDT Inhaled Oxygen Concentration - - Weight 82 kg (180 lb 12.4 oz) 02/22/2024 7:37 AM EDT Height 170.2 cm (5' 7 ) 02/22/2024 7:37 AM EDT Body Mass Index 28.31 02/22/2024 7:37 AM EDT Plan of Treatment Health Maintenance Due Date Last Done Comments [facility]-/Child/Adol SDOH Screenings 1969 Diabetes: Dental Exam 10/17/1979 [facility]- SDOH Screenings 10/17/1987 [facility]-Adult SDOH Screenings 10/17/1987 [facility]-DTaP,Tdap,and Td Vaccines (1 - Tdap) 1988 [facility]-Pneumococcal Vaccine: 50+ Years (1 of 2 - PCV) 1988 [facility]-Pap Smear 1990 [facility]-Cervical Cancer Screening 10/17/1999 [facility]-HPV/Cotest 10/17/1999 CT Colonography 2014 FIT-DNA 2014 FIT 2014 FOBT 2014 Sigmoidoscopy 2014 [facility]-Zoster Vaccines (1 of 2) 10/17/2019 [facility]-Hepatitis A Vaccines (2 of 3 - Hep A Twinrix risk 3-dose series) 10/11/2020 09/13/2020 [facility]-Hepatitis B Vaccines (2 of 3 - Hep B Twinrix 3-dose series) 10/11/2020 09/13/2020 [id number] Vaccine (2 - season) 2024 12/24/2020 [facility]-Diabetes: Hemoglobin A1C 11/29/2024, 03/16/2023, 07/23/2022, Additional history exists [facility]-Depression Screening 02/21/2025 02/22/2024, 02/09 [facility]-Influenza Vaccine (Season Ended) 2025 04/08/2023, 05/21/2022 [facility]-Breast Cancer Screening 02/14/2026 08/0 12/2023, 04/16/2015, 02/07/2014 Colonoscopy 07/31/2032 07/31/2022, 06/18/2020 [facility]-Colorectal Cancer Screening 07/31/2032 [facility]-HIV Screening Completed 09/08/2019 [facility]-Hepatitis C Screening Completed 2024, 02/22/2024, 09/08/2019 [facility]-Obesity Intervention Completed 025, 02/22/2024, 05/14/2023 HPV Vaccines Aged Out No longer eligi ble based on patient's age to complete this topic [facility]-HIB Vaccines Aged Out No longer e ligible based on patient's age to complete this topic [facility]-IPV Vaccines Aged Out No longer e ligible based on patient's age to complete this topic [facility]-Rotavirus Vaccines Aged Out No lo nger eligible based on patient's age to complete this topic Procedures Procedure Name Priority Date/Time Associated Diagnosis Comments OCT, RETINA - OU - BOTH EYES Routine 10/10/2024 10:08 AM EDT Hypertensive retinopathy of both eyes HEPATITIS C ANTIBODY W/REFLEX TO HCV QUANT PCR Routine 02/22/2024 7:30 AM EDT End-stage liver disease (CMS/HCC) HEMOGLOBIN A1C Routine 12/13/2020 2:13 PM EDT COLONOSCOPY 06/18/2020 HIV 1/2 ANTIBODY/ANTIGEN SCREEN WITH REFLEX TO HIV I/II DIFFERENTIATION Routine 09/08/2019 1:59 PM EST from Last 3 Months or Most Recently Relevant to Health Maintenance Results * OCT, Retina - OU - Both Eyes (10/10/2024 10:08 AM EDT) Anatomical Region Laterality Modality Head Optical Coherenc e Tomography Narrative 10/10/2024 10:08 AM EDT Right Eye Quality was good. Scan locations included subfoveal. Findings include normal observations. Left Eye Quality was good. Scan locations included subfoveal. Findings include normal observations. Samuel Katie Olivas DO OPHTH TOMOGRAPHY Final Result * Hepatitis C Antibody (02/22/2024 7:30 AM EDT) Hepatitis C Antibody Negative Negative 02/22/2024 8:47 AM EDT [facility] Blood Venous blood specimen / Unknown Venipuncture / Unknown 02/22/2024 7:30 AM EDT 02/22/2024 7:58 AM EDT Asael Esteves MD LAB BLOOD ORDERABLES Final Resul t [facility] [address] [place] [id number] * (ABNORMAL) Hemoglobin A1c (12/13/2020 2:13 PM EDT) Hemoglobin A1c 8.0(H) 4.7 - 6.0 % [facility] Comment: Glycohemoglobin Reference Range, 0 years and up: 4.7 to 6.0% . HA1C Interpretive Data: Diagnosis of Diabetes: Diabetic > or = 6.5% Pre-diabetic 5.7 to 6.4% Non-diabetic < or = 5.6% . Glycemic Targets for Type I and Type II Diabetics: Non- Adults <7.0% Adults <6.0% Children and Adolescents <7.5% . Source: [place] [employer]. Standards of medical care in diabetes, 2017. Diabetes Care.2017:40 (suppl 1):S1-S135. . HbA1c assay performed by an ion-exchange chromatography method that is certified traceable to the DCCT. 12/13/2020 2:13 PM EDT 12/13/2020 3:27 PM EDT Dori Gao APRN, DNP LAB BLOOD ORDERABLES Final Result [facility] * COLONOSCOPY (06/18/2020) Anatomical Region Laterality Modality Endoscopy Narrative 06/18/2020 Ordered by an unspecified provider. Historical Provider GI PROCEDURE ORDERABLES F inal Result * HIV 1 & 2 Antibody/Antigen Screen (09/08/2019 1:59 PM EST) HIV 1 Result NONREACTIVE Screening for HIV 1 and 2 antibodies is NONREACTIVE. No confirmatory testing is required. [facility] 09/08/2019 1:5 9 PM EST 09/08/2019 2:32 PM EST Dori Gao CISSP, DNP LAB BLOOD ORDERABLES Final Result [facility] from Last 3 Months or Most Recently Relevant to Health Maintenance Insurance [employer] Care Teams Prototype Deicer Assembler Relationship Specialty Start Date End Date Trevor Rolon DO [address] [facility] [address] [place] [address] PCP - General 11/22/20 Mc Grant DO [address] [facility] [address] [place] [address] Referring Physician Gastroenterology 02/21/24
--- OUTSIDE RECORDS SUMMARY | 2025-01-02 18:12 | XMS_ITS | Encounter Summary ---
Author Organization [facility] Address [address] [place] [address] Care Team Providers Care Video Game Designer Name Role Phone Trevor Rolon DO Primary Care Provider [phone] Mc Grant DO Unavailable [phone] Reason for Referral * Consultation (Routine) - Authorized Specialty Diagnoses / Procedures Referred By Truong belal Referred To Contact Gastroenterology Diagnoses GOOD (nonalcoholic steatohepatitis) Laquita Corral PA [address] [place] [address] Phone: tel: fax: Referral ID Status Reason Start Date Expiration Date Visits Requested Visits Authorized [id number] Authorized Specialty Services Required 01/27/2024 07/28/2025 1 1 Encounter Details Date Type Department Care Team (Late st Contact Info) Description 01/27/2024 Community [facility] [address] [place] [address] Laquita Corral PA [address], [place] [id number] GOOD (nonalcoholic steatohepatitis) (Primary Dx) Social History Tobacco Use Types Packs/Day Years Used Date Smoking Tobacco: Former Cigarettes 0.1 10.6 2 - 02/2022 Smokeless Tobacco: Never Alcohol Use [...] as of this encounter Plan of Treatment Scheduled Referrals Name Type Priority Associated Diagnoses Order Schedule Ambulatory referral to Gastroenterology Outpatient Referral Routine GOOD (nonalcoholic steatohepatitis) Expected: 01/27/2024 (Approximate), Expires: 07/29/2025 documented as of this encounter Visit Diagnoses Diagnosis GOOD (nonalcoholic steatohepatitis)- Primary Other chronic nonalcoholic liver disease documented in this encounter Additional Health Concerns Assessment Noted Time A fall risk assessment has been complete d for the patient 05/14/2023 11:23 AM EDT A Body Mass Index follow-up plan has been documented for the patient 05/19/2023 10:54 AM EST documented as of this encounter Care Teams Video Game Designer Relationship Specialty Start Date End Date Trevor Rolon DO [address] [facility] [address] [place] [address] PCP - General 11/22/20 Mc Grant DO [address] [facility] [address] [place] [address] Referring Physician Gastroenterology 02/21/24 documented as of this encounter
--- OUTSIDE RECORDS SUMMARY | 2025-01-02 18:12 | XMS_ITS | Encounter Summary ---
Author Organization [facility] Address [address] [place] [address] Care Team Providers Care Social Psychologist Name Role Phone Trevor Rolon DO Primary Care Provider [phone] Mc Grant DO Unavailable [phone] Encounter Details Date Type Department Care Team (Late st Contact Info) Description 10/24/2023 Orders Only External Location [address] [place] [address] Provider, External Social History Tobacco Use Types [...] Procedure Name Priority Date/Time Associated Diagnosis Comments CT OUTSIDE IMAGES 10/24/2023 5:58 PM EDT documented in this encounter Results * CT OUTSIDE IMAGES (10/24/2023 5:58 PM EDT) Anatomical Region Laterality Modality Computed Tomogra phy 10/24/2023 5:58 PM EDT us External Provider IMG CT PROCEDURES Final Result documented in this encounter Visit Diagnoses Not on filedocumented in this encounter Additional Health Concerns Assessment Noted Time A fall risk assessment has been complete d for the patient 05/14/2023 11:23 AM EDT A Body Mass Index follow-up plan has been documented for the patient 05/19/2023 10:54 AM EST documented as of this encounter Care Teams Social Psychologist Relationship Specialty Start Date End Date Trevor Rolon DO [address] [facility] [address] [place] [address] PCP - General 11/22/20 Mc Grant DO [address] [facility] [address] [place] [address] Referring Physician Gastroenterology 02/21/24 documented as of this encounter
--- OUTSIDE RECORDS SUMMARY | 2025-01-02 18:12 | XMS_ITS | Patient Health Record ---
Author Organization [facility] Address [address] [place] [address] [address] [place] [address] Care Team Providers Care Flight Radio Officer Name Role Phone Janeen Paulino Primary Care Provider [phone] Allergies Allergen (clinical drug ingredient) Drug/Non Drug Allergy documented on EMR Reaction Allergy Type Onset Date Status povidone-iodine Betadine rash Drug Allergy A ctive acetaminophen / oxycodone Percocet Unknown Drug Allergy Active vortioxetine Trintellix rash Drug Allergy Act jessica sulfacetamide Sulfacetamide rash Drug Allergy Active Surgical Glue rash Allergy Active Reason For Referral No Information Medications Medication SIG (Take, Route, Fr equency, Duration) Notes Start Date End Date Status hydrOXYzine HCl Acti ve Vitamin D2 Active Lansoprazole Active Xifaxan Active Lantus Active Lisinopril Active buPROPion HCl ER (XL) Active Potassium Chloride A ctive Cyclobenzaprine HCl Active rOPINIRole HCl Activ e Escitalopram Oxalate Active Simvastatin Active HumaLOG Active Spironolactone Activ e metFORMIN HCl Active Metoprolol Succinate ER Active Bumetanide Active oxyCODONE HCl Active Plan Of Treatment No Information Insurance Providers Payer Name Payer Address Payer Phone Subscriber Number Group Number Insured Name Patient Relationship to Insured Coverage Start Date Coverage End Date [employer] [facility] [address] [address] [place] [phone] [id number] MARK PEÑAY Self - patient is the insured [employer] [address] [address] [place] [phone] [id number] AVIS PEÑA Self - patient is the insured Medical (General) History Medical History History ICD Code chronic back pain depression anxiety hypertension hyperlipidemia iritis nonalcoholic cirrhosis psoriatic arthritis restless leg syndrome serratia sleep apnea spinal abscess Type II diabetes vasculitis acid reflux anemia
--- OUTSIDE RECORDS SUMMARY | 2025-01-02 18:13 | XMS_ITS | Encounter Summary ---
Author Organization [facility] nter Address [address] [place] [address] Care Team Providers Care Dairy Lab Technician Name Role Phone Trevor Rolon DO Primary Care Provider Lucy Christopher DO Unavailable Encounter Details Date Type Department Care Team (Late st Contact Info) Description 01/08/2023 Orders Only [facility] ENDOCRINOLOGY PRACTICE [address], 8th [place] [address] Brigitte Mahoney NP [address] [place] [address] Social History Tobacco Use Types Packs/Day Years [...] week 07/24/2022 How often do you attend [facility] or [facility] services? More than 4 times per year 07/24/2022 Do you belong to any clubs o r organizations such as moravian groups, unions, fraternal or athletic groups, or [...] Date Recorded Patient Health Questionnaire-2 Score 0 07/24/2022 [facility] Occupat ional Health - Occupational Stress [...] Orientation Straight 09/17/2021 11 :23 AM EST COVID-19 Exposure Response Date Recorded In the last 10 days, have yo u been in contact with someone who was confirmed or suspected to have Coronavirus/COVID-19? No / Unsure 01/06/2023 10:48 AM EDT documented as of this encounter Plan of Treatment Upcoming Encounters Date Type Department Care Team (Late st Contact Info) Description 01/22/2025 12:00 PM EDT Office Visit [facility] [address], 8th [place] [address] Ben Knox MD [address] [place] [address] 01/22/2025 2:00 PM EDT Office Visit [facility] RHEUMATOLOGY PRACTICE [address], 8th Floor [place] [address] Suman Treviño MD [address] jak[address] [place] [address] 01/24/2025 1:00 PM EDT Office Visit [facility] SLEEP LAB PRACTICE [address], [place] [address] Demario Silva DO [address] [facility] [place] [address] 02/15/2025 1:20 PM EDT Appointment [facility] MAMMOGRAPHY SERVICES BL D [address], [place] [address] 02/27/2025 1:00 PM EDT Office Visit [facility] ORTHOPEDIC PODIATRY PRACTICE [address], 6th [place] [address] Alexandr Zarate, OLLIE [address] [facility] [place] [address] 02/28/2025 1:45 PM EDT Office Visit [facility]COL[facility] [address], 10th [place] [address] Lucy Christopher, [address] [place] [address] 03/19/2025 1:15 PM EDT Office Visit [facility] GASTROENTEROLOGY PRACTICE [address], 2nd [place] [address] 08/16/2025 10:00 AM EST Office Visit [facility] ENDOCRINOLOGY PRACTICE [address], 8th [place] [address] Brigitte Mahoney, CLAU [address] [place] [address] 12/13/2025 11:00 AM EDT Office Visit [facility] OBGYN [facility] [address], 7th [place] [address] Janice Woodward, CHILDREN'S AUTHOR [address] [place] [address] documented as of this encounter Visit Diagnoses Not on filedocumented in this encounter Additional Health Concerns Assessment Noted Time PHQ-9 Depression Total Score: 0 07/24/19 23 3:00 PM EST documented as of this encounter Care Teams Dairy Lab Technician Relationship Specialty Start Date End Date Trevor Rolon DO [address] [facility] [address] [place] [address] PCP - General Lucy Christopher DO [address] [place], [place] [id number] Consulting Physician Oncology 10/17/24 documented as of this encounter
--- OUTSIDE RECORDS SUMMARY | 2025-01-02 18:13 | XMS_ITS | Encounter Summary ---
Author Organization [facility] nter Address [address] [place] [address] Care Team Providers Care Electrician Second Name Role Phone Trevor Rolon DO Primary Care Provider Lucy Christopher DO Unavailable Reason for Referral * Imaging (Routine) - Closed Specialty Diagnoses / Procedures Referred By Truong bella Referred To Contact Cardiology Diagnoses PAD (peripheral artery disease) Procedures US arterial doppler bilateral lower ext Vascular US lower extremity arterial Doppler complete Ben Knox MD [address] [place] [address] Phone: tel: fax: [facility] CARDIAC DIAGNOSTIC [address], 1st [place] [address] Phone: tel: fax: Referral ID Status Reason Start Date Expiration Date V isits Requested Visits Authorized [id number] Closed Perform Procedure 11/15/2024 11/15/2025 1 1 Encounter Details Date Type Department Care Team (Late st Contact Info) Description 11/15/2024 Orders Only [facility] NEUROLOGY PRACTICE [address] [address] Ben Knox MD [address] [facility] [place] [address] PAD (peripheral artery disease) (Primary Dx) Social History Tobacco Use Types [...] week 07/24/2022 How often do you attend [facility] or [facility] services? More than 4 times per year 07/24/2022 Do you belong to any clubs o r organizations such as zoroastrian groups, unions, fraternal or athletic groups, or [...] Recorded Patient Health Questionnaire-2 Score 0 09/28/2023 [facility] of Occupat ional Health - [...] AM EST documented as of this encounter Plan of Treatment Upcoming Encounters Date Type Department Care Team (Late st Contact Info) Description 01/22/2025 12:00 PM EDT Office Visit [facility] NEUROLOGY PRACTICE [address], 8th [place] [address] Ben Knox MD [address] [facility] [place] [address] 01/22/2025 2:00 PM EDT Office Visit [facility] RHEUMATOLOGY PRACTICE [address], 8th [place] [address] Suman Treviño MD [address] [facility] [place] [address] 01/24/2025 1:00 PM EDT Office Visit [facility] SLEEP LAB PRACTICE [address] [address] Demario Silva DO [address] [place] [id number] 02/15/2025 1:20 PM EDT Appointment [facility] MAMMOGRAPHY SERVICES [facility] D [address], [place] [address] 02/27/2025 1:00 PM EDT Office Visit [facility] ORTHOPEDIC PODIATRY PRACTICE [address], 6th [place] [address] Alexandr Zarate DPM [address] [facility] [place] [address] 02/28/2025 1:45 PM EDT Office Visit [facility] ONCOLOGY PRACTICE [address], 10th [place] [address] Lucy Christopher DO [address] [place] [address] 03/19/2025 1:15 PM EDT Office Visit [facility] GASTROENTEROLOGY PRACTICE [address], 2nd [place] [address] 08/16/2025 10:00 AM EST Office Visit [facility] ENDOCRINOLOGY PRACTICE [address], 8th [place] [address] Brigitte Mahoney NP [address] [place] [address] 12/13/2025 11:00 AM EDT Office Visit [facility] OBGYN PRACTICE [address], 7th [place] [address] Janice Woodward NP [address] [place] [facility] documented as of this encounter Results * US arterial doppler [...] Alexsander Dsouza MD 11/15/2024 02:41 PM EDT RP Narrative 11/15/2024 2:41 PM EDT PROCEDURE: US LOWER [...] Dsouza MD 11/15/2024 02:41 PM EDT RPWorkstation: [id number] Ben Knox MD IM US PROCEDURES Final Result documented in this encounter Visit Diagnoses Diagnosis PAD (peripheral artery disease)- Primary Unspecified peripheral vascular disease PAD (peripheral artery disease) Unspecified peripheral vascular disease documented in this encounter Additional Health Concerns Assessment Noted Time PHQ-9 Depression Total Score: 0 07/24/19 23 3:00 PM EST documented as of this encounter Care Teams Electrician Second Relationship Specialty Start Date End Date Trevor Rolon DO [address] [facility] [address] [place] [address] PCP - General Lucy Christopher DO [address] [place] [address] Consulting Physician Oncology 10/17/24 documented as of this encounter
--- OUTSIDE RECORDS SUMMARY | 2025-01-02 18:13 | XMS_ITS | Encounter Summary ---
Author Organization Healthcare Address [address] [place] [address] Care Team Providers Care Spray Dry Operator Name Role Phone Trevor Rolon DO Primary Care Provider [phone] Mc Grant DO Unavailable [phone] Encounter Details Date Type Department Care Team (Late st Contact Info) Description 07/01/2023 Orders Only External Location [address] [place] [address] Provider, External Social History Tobacco Use Types [...] Name Priority Date/Time Associated Diagnosis Comments US OUTSIDE IMAGES 07/01/2023 9:22 AM EST documented in this encounter Results * US OUTSIDE IMAGES (07/01/2023 9:22 AM EST) Anatomical Region Laterality Modality Ultrasound 07/01/2023 9:22 AM EST us External Provider IMG US PROCEDURES Final Result documented in this encounter Visit Diagnoses Not on filedocumented in this encounter Additional Health Concerns Assessment Noted Time A fall risk assessment has been complete d for the patient 05/14/2023 11:23 AM EDT A Body Mass Index follow-up plan has been documented for the patient 05/19/2023 10:54 AM EST documented as of this encounter Care Teams Spray Dry Operator Relationship Specialty Start Date End Date Trevor Rolon DO [address] [facility] [address] [place] [address] PCP - General 11/22/20 Mc Grant DO [address] [facility] [address] [place] [address] Referring Physician Gastroenterology 02/21/24 documented as of this encounter
--- OUTSIDE RECORDS SUMMARY | 2025-01-02 18:13 | XMS_ITS | Encounter Summary ---
Author Organization [facility] nter Address [address] [place] [address] Care Team Providers Care Catalogue Maker Name Role Phone Trevor Rolon DO Primary Care Provider Lucy Christopher DO Unavailable Reason for Referral * Consultation (Routine) - Authorized Specialty Diagnoses / Procedures Referred By Truong bella Referred To Contact Podiatry Diagnoses Left foot pain Procedures ME OFFICE/OUTPATIENT NEW SF MDM 15 MINUTES ME OFFICE/OUTPATIENT NEW LOW MDM 30 MINUTES ME OFFICE/OUTPATIENT NEW MODERATE MDM 45 MINUTES ME OFFICE/OUTPATIENT NEW HIGH MDM 60 MINUTES ME OFFICE/OUTPATIENT ESTABLISHED SF MDM 10 MIN ME OFFICE/OUTPATIENT ESTABLISHED LOW MDM 20 MIN ME OFFICE/OUTPATIENT ESTABLISHED MOD MDM 30 MIN ME OFFICE/OUTPATIENT ESTABLISHED HIGH MDM 40 MIN Laquita Corral PA [address] [facility] [address] [place] [address] Phone: tel: fax: Alexandr Zarate DPM [address] [place] [address] Phone: tel: fax: Referral ID Status Reason Start Date Expiration Date Visits Requested Visits Authorized [id number] Authorized Specialty Services Required 10/27/2024 10/27/2025 1 3 Encounter Details Date Type Department Care Team (Late st Contact Info) Description 10/26/2024 Community Orders [facility] Link [address] [place] [address] Laquita Corral PA [address] [facility] [address] [place] [address] Arthralgia of left foot (Primary Dx); Left foot pain Social History Tobacco Use Types Packs/Day Years [...] How often do you attend chur or hoahaoism services? More than 4 times per year 07/24/2022 Do you belong to any clubs o r organizations such as zoroastrianism groups, unions, fraternal or athletic groups, or [...] Recorded Patient Health Questionnaire-2 Score 0 09/28/2023 [facility] - Occupational Stress Questionnaire Answer Date Recorded [...] place to sleep or slept in a nursing home (including now)? No 07/24/2022 Comments No [...] Visit [facility] NEUROLOGY PRACTICE [address], 8th Floor [place] [address] Ben Knox MD [address] [place] [address] [place] [address] 01/22/2025 2:00 PM EDT Office Visit [facility] RHEUMATOLOGY PRACTICE [address], 8th Floor [place] [id number] Suman Treviño MD [address] [facility] [place] [address] 01/24/2025 1:00 PM EDT Office Visit [facility] SLEEP LAB PRACTICE [address] [facility] [place] [address] Demario Silva DO [address] [place] [address] 02/15/2025 1:20 PM EDT Appointment [facility] MAMMOGRAPHY SERVICES [facility] D [address] , [facility] D [place] [id number] 02/27/2025 1:00 PM EDT Office Visit [facility] ORTHOPEDIC PODIATRY PRACTICE [address], 6th [place] [address] Alexandr Zarate DPM [address] [facility] [place] [address] 02/28/2025 1:45 PM EDT Office Visit [facility] ONCOLOGY PRACTICE [address], 10th [place] [address] Lucy Christopher DO [address] [place] [id number] 03/19/2025 1:15 PM EDT Office Visit [facility] GASTROENTEROLOGY PRACTICE [address], 2nd [place] [address] 08/16/2025 10:00 AM EST Office Visit [facility] ENDOCRINOLOGY PRACTICE [address], 8th [place] [address] Brigitte Mahoney NP [address] [place] [address] 12/13/2025 11:00 AM EDT Office Visit [facility] OBGYN PRACTICE [address], 7th [place] [address] Janice Woodward NP [address] [place] [id number] Scheduled Referrals Name Type Priority Associated Diagnoses Order Schedule Ambulatory referral/appointment with Podiatry Outpatient Referral Routine Left foot pain Expected: 10/27/2024 (Approximate), Expires: 10/27/2025 documented as of this encounter Results * (ABNORMAL) CBC (10/26/2024 1:37 PM EDT) Auto WBC 4.5 3.8 - 11.0 10*3/uL 10/26/2024 4:17 PM EDT [facility] RBC 3.93 3.73 - 5.13 10*6/uL 10/26/2024 4:17 PM EDT [facility] Hemoglobin 13.3 11.2 - 15.3 g/dL 10/26/2024 4:17 PM EDT [facility] Hematocrit 38.5 32.6 - 44.6 % 10/26/2024 4:17 PM EDT [facility] MCV 97.8(H) 78.8 - 96.0 fL 10/26/2024 4:17 PM EDT [facility] MCH 33.9(H) 26.2 - 33.0 pg 10/26/2024 4:17 PM EDT [facility] MCHC 34.6 32.7 - 35.1 g/dL 10/26/2024 4:17 PM EDT [facility] RDW 13.2 12.1 - 16.1 % 10/26/2024 4:17 PM EDT [facility] Platelets 73(L) 138 - 402 10*3/uL 10/26/2024 4:17 PM EDT [facility] MPV 8.8 7.0 - 10.6 fL 10/26/2024 4:17 PM EDT [facility] Blood Venous blood specimen / Unknown Venipuncture / Unknown 10/26/2024 1:37 PM EDT 10/26/2024 1:37 PM EDT us Laquita WELSH LAB BLOOD ORDERABLES Final Re sult Performing Organization Address City/State/[facility] Co de Phone Number [facility] [address] [place] [address], * Uric acid (10/26/2024 1:37 PM EDT) Uric Acid 3 2 - 8 mg/dL 10/26/2024 4:12 PM EDT [facility] Blood Venous blood specimen / Unknown Venipuncture / Unknown 10/26/2024 1:37 PM EDT 10/26/2024 1:37 PM EDT Narrative [facility] - 10/26/2024 4:12 PM EDT Please note possible changes in reference range and units reported due to change in methodology. us Laquita WELSH LAB BLOOD ORDERABLES Final Re sult [facility] [address] [place] [address], documented in this encounter Visit Diagnoses Diagnosis Arthralgia of left foot- Primary Left foot pain Pain in soft tissues of limb documented in this encounter Additional Health Concerns Assessment Noted Time PHQ-9 Depression Total Score: 0 07/24/19 23 3:00 PM EST documented as of this encounter Care Teams Catalogue Maker Relationship Specialty Start Date End Date Trevor Rolon DO [address] [facility] [address] [place] [address] PCP - General Lucy Christopher DO [address] [facility] [place] [address] Consulting Physician Oncology 10/17/24 documented as of this encounter
--- OUTSIDE RECORDS SUMMARY | 2025-01-02 18:13 | XMS_ITS | Encounter Summary ---
Author Organization Healthcare Address [address] [place] [address] Care Team Providers Care Manager Paid Name Role Phone Trevor Rolon DO Primary Care Provider [phone] Mc Grant DO Unavailable [phone] Encounter Details Date Type Department Care Team (Late st Contact Info) Description 03/01/2023 Orders Only External Location [address] [place] [address] Provider, External Social History Tobacco Use Types [...] Date/Time Associated Diagnosis Comments MR OUTSIDE IMAGES 03/01/2023 9:53 AM EDT documented in this encounter Results * MR transfer of outside films (03/01/2023 9:53 AM EDT) Anatomical Region Laterality Modality Magnetic Resonan ce 03/01/2023 9:53 AM EDT us External Provider IMG MRI PROCEDURES Final Resul t documented in this encounter Visit Diagnoses Not on filedocumented in this encounter Additional Health Concerns Assessment Noted Time A fall risk assessment has been complete d for the patient 08/25/2022 1:37 PM EST documented as of this encounter Care Teams Manager Paid Relationship Specialty Start Date End Date Trevor Rolon DO [address] [facility] [address] [place] [address] PCP - General 11/22/20 Mc Grant DO [address] [facility] [address] [place] [address] Referring Physician Gastroenterology 02/21/24 documented as of this encounter
--- OUTSIDE RECORDS SUMMARY | 2025-01-02 18:13 | XMS_ITS | Encounter Summary ---
Author Organization [facility] nter Address [address] [place] [address] Care Team Providers Care Mottler Operator Name Role Phone Trevor Rolon DO Primary Care Provider Lucy Christopher DO Unavailable Encounter Details Date Type Department Care Team (Latest Contact Info) Description 11/20/2024 Travel Social History Tobacco Use Types Packs/Day Years [...] often do you attend chur ch or baptism services? More than 4 times per year 07/24/2022 Do you belong to any clubs o r organizations such as druze groups, unions, fraternal or athletic groups, or [...] Recorded Patient Health Questionnaire-2 Score 0 09/28/2023 [facility] of Occupat ional [facility] - Occupational Stress Questionnaire Answer [...] place to sleep or slept in a long term (including now)? No 07/24/2022 Comments No Sex [...] Description 01/22/2025 12:00 PM EDT Office Visit [facility] NEUROLOGY PRACTICE [address] 8th [place] [address] Ben Knox MD [employer] [address] [facility] [place] [address] 01/22/2025 2:00 PM EDT Office Visit [facility] RHEUMATOLOGY PRACTICE [address] 8th [place] [address] Suman Treviño MD [address] [place] [address]. [place] [address] 01/24/2025 1:00 PM EDT Office Visit [facility] SLEEP LAB PRACTICE [address] [place] [facility] [place] [address] Demario Silva DO [address] [place] [address] 02/15/2025 1:20 PM EDT Appointment [facility] MAMMOGRAPHY SERVICES BL D [address], [facility] [place] [address] 02/27/2025 1:00 PM EDT Office Visit [facility] ORTHOPEDIC PODIATRY PRACTICE [address], 6th [place] [address] Alexandr Zarate DPM [address] [place] [address] 02/28/2025 1:45 PM EDT Office Visit [facility] ONCOLOGY PRACTICE [address], 10th [place] [address] Lucy Christopher DO [address] [facility] [place] [address] 03/19/2025 1:15 PM EDT Office Visit [facility] GASTROENTEROLOGY PRACTICE [address], 2nd [place] [address] 08/16/2025 10:00 AM EST Office Visit [facility] ENDOCRINOLOGY PRACTICE [address], 8th [place] [address] Brigitte Mahoney NP [address] [facility] [place] [address] 12/13/2025 11:00 AM EDT Office Visit [facility] [address], 7th [place] [address] Janice Woodward NP [address] [place] [id number] documented as of this encounter Visit Diagnoses Not on filedocumented in this encounter Additional Health Concerns Assessment Noted Time PHQ-9 Depression Total Score: 0 07/24/19 23 3:00 PM EST documented as of this encounter Care Teams Mottler Operator Relationship Specialty Start Date End Date Trevor Rolon DO [address] [facility] [address] [place] [id number] PCP - General Lucy Christopher DO [address] [place] [address] [place] [address] Consulting Physician Oncology 10/17/24 documented as of this encounter
--- OUTSIDE RECORDS SUMMARY | 2025-01-02 18:13 | XMS_ITS | Encounter Summary ---
Author Organization Healthcare Address [address] [place] [address] Care Team Providers Care Worldwide Chief Creative Officer Name Role Phone Trevor Rolon DO Primary Care Provider [phone] Mc Grant DO Unavailable [phone] Encounter Details Date Type Department Care Team (Late st Contact Info) Description 01/06/2023 Orders Only External Location [address] [place] [address] Provider, External Social History Tobacco Use Types [...] Name Priority Date/Time Associated Diagnosis Comments XR OUTSIDE IMAGES 01/06/2023 2:11 PM EDT documented in this encounter Results * XR OUTSIDE IMAGES (01/06/2023 2:11 PM EDT) Anatomical Region Laterality Modality Radiographic Zayda ging 01/06/2023 2:11 PM EDT us External Provider IMG XR PROCEDURES Final Result documented in this encounter Visit Diagnoses Not on filedocumented in this encounter Additional Health Concerns Assessment Noted Time A fall risk assessment has been complete d for the patient 08/25/2022 1:37 PM EST documented as of this encounter Care Teams Worldwide Chief Creative Officer Relationship Specialty Start Date End Date Trevor Rolon DO [address] [facility] [address] [place] [address] PCP - General 11/22/20 Mc Grant DO [address] [facility] [address] [place] [address] Referring Physician Gastroenterology 02/21/24 documented as of this encounter
--- OUTSIDE RECORDS SUMMARY | 2025-01-02 18:13 | XMS_ITS | Encounter Summary ---
Author Organization [facility] nter Address [address] [place] [address] Care Team Providers Care Emergency Technician Name Role Phone Trevor Rolon DO Primary Care Provider Lucy Christopher DO Unavailable Reason for Referral * Consultation (Routine) - Authorized Specialty Diagnoses / Procedures Referred By Truong bella Referred To Contact Sleep Medicine Diagnoses Excessive daytime sleepiness Procedures ID OFFICE/OUTPATIENT NEW SF MDM 15 MINUTES ID OFFICE/OUTPATIENT NEW LOW MDM 30 MINUTES ID OFFICE/OUTPATIENT NEW MODERATE MDM 45 MINUTES ID OFFICE/OUTPATIENT NEW HIGH MDM 60 MINUTES ID OFFICE/OUTPATIENT ESTABLISHED SF MDM 10 MIN ID OFFICE/OUTPATIENT ESTABLISHED LOW MDM 20 MIN ID OFFICE/OUTPATIENT ESTABLISHED MOD MDM 30 MIN ID OFFICE/OUTPATIENT ESTABLISHED HIGH MDM 40 MIN Laquita Corral PA [address] [facility] [address] [place] [address] Phone: tel: fax: [facility] [address], 9th [place] [address] Phone: tel: fax: Referral ID Status Reason Start Date Expiration Date Visits Requested Visits Authorized [id number] Authorized Specialty Services Required 11/23/2024 11/23/2025 1 3 Encounter Details Date Type Department Care Team (Late st Contact Info) Description 11/23/2024 Community Orders [facility] Link [address] [place] [address] Laquita Corral PA [address] [facility] [address] [place] [address] Excessive daytime sleepiness (Primary Dx) Social History Tobacco Use Types [...] often do you attend chur ch or mu-ism services? More than 4 times per year 07/24/2022 Do you belong to any clubs o r organizations such as adventism groups, unions, fraternal or athletic groups, or [...] Recorded Patient Health Questionnaire-2 Score 0 09/28/2023 [facility] of Occupat ional Health - Occupational Stress [...] NEUROLOGY PRACTICE [address] 8th [place] [address] Ben Knox MD [address] [place], [place] [phone] 01/22/2025 2:00 PM EDT Office Visit [facility]AT[facility] [address] , 8th [place] [address] Suman Treviño MD [address] [facility]. Katie [place] [id number] 01/24/2025 1:00 PM EDT Office Visit [facility] [address] [facility] [place] [phone] Demario Silva DO [address] [place] [address] 02/15/2025 1:20 PM EDT Appointment [facility] MAMMOGRAPHY SERVICES [facility] D [address] , [facility] [place] [address] 02/27/2025 1:00 PM EDT Office Visit [facility] ORTHOPEDIC [facility]ODIATRY PRACTICE [address] , 6th [place] [address] Alexandr Zarate DPM 911 [facility] A [place] [phone] 02/28/2025 1:45 PM EDT Office Visit [facility] ONCOLOGY [facility] [address], 10[address] Floor Clinic [place] [phone] Lucy Christopher DO [address] [place] [address] 03/19/2025 1:15 PM EDT Office Visit [facility] GASTROENTEROLOGY [facility]ACTICE [address], 2nd [place] [address] 08/16/2025 10:00 AM EST Office Visit [facility] ENDOCRINOLOGY [facility]ACTICE [address], 8th [place] [address] Brigitte Mahoney NP [address] [place] [phone] 12/13/2025 11:00 AM EDT Office Visit [facility] OBGYN [facility] [address], 7th [place] [address] Janice Woodward NP [address] [place] [address] Scheduled Referrals Name Type Priority Associated Diagnoses Order Schedule Ambulatory referral/appointment with Sleep Medicine Outpatient Referral Routine Excessive daytime sleepiness Expected: 11/23/2024 (Approximate), Expires: 11/23/2025 documented as of this encounter Visit Diagnoses Diagnosis Excessive daytime sleepiness- Primary documented in this encounter Additional Health Concerns Assessment Noted Time PHQ-9 Depression Total Score: 0 07/24/19 23 3:00 PM EST documented as of this encounter Care Teams Emergency Technician Relationship Specialty Start Date End Date Trevor Rolon DO [address] [facility] [address] [place] [phone] PCP - General Lucy Christopher DO [address] [place] [address] Consulting Physician Oncology 10/17/24 documented as of this encounter
--- OUTSIDE RECORDS SUMMARY | 2025-01-02 18:13 | XMS_ITS | Encounter Summary ---
Author Organization [facility] nter Address [address] [place] [address] Care Team Providers Care Sheet Metal Apprentice Name Role Phone Trevor Rolon DO Primary Care Provider Lucy Christopher DO Unavailable Reason for Referral * Consultation (Routine) - Authorized Specialty Diagnoses / Procedures Referred By Truong bella Referred To Contact Hematology Diagnoses Monoclonal gammopathy Procedures [place] OFFICE/OUTPATIENT NEW SF MDM 15 MINUTES [place] OFFICE/OUTPATIENT NEW LOW MDM 30 MINUTES [place] OFFICE/OUTPATIENT NEW MODERATE MDM 45 MINUTES [place] OFFICE/OUTPATIENT NEW HIGH MDM 60 MINUTES [place] OFFICE/OUTPATIENT ESTABLISHED SF MDM 10 MIN [place] OFFICE/OUTPATIENT ESTABLISHED LOW MDM 20 MIN [place] OFFICE/OUTPATIENT ESTABLISHED MOD MDM 30 MIN [place] OFFICE/OUTPATIENT ESTABLISHED HIGH MDM 40 MIN Ben Knox MD [address] [place] [address] Phone: tel: fax: Referral ID Status Reason Start Date Expiration Date Visits Requested Visits Authorized [id number] Authorized Specialty Services Required 11/17/2024 11/17/2025 1 3 Encounter Details Date Type Department Care Team (Late st Contact Info) Description 11/17/[address] [facility] NEUROLOGY PRACTICE [facility] [address], [address] [place] [address] Mary Cobos, CLAU [address] [place] [address] Monoclonal gammopathy (Primary Dx) Social History Tobacco Use Types [...] week 07/24/2022 How often do you attend [facility] or restorationist services? More than 4 times per year 07/24/2022 Do you belong to any clubs o r organizations such as scientologist groups, unions, fraternal or athletic groups, or [...] Recorded Patient Health Questionnaire-2 Score 0 09/28/2023 [facility] of Occupat ional Health - Occupational Stress [...] place to sleep or slept in a skilled nursing (including now)? No 07/24/2022 Comments No Sex [...] [facility]UR[facility] [address], 8th Floor [place] [phone] Ben Knox MD [address] [facility] A [place] [phone] 01/22/2025 2:00 PM EDT Office Visit [facility] RHEUMATOLOGY PRACTICE [address], 8th [place] [address] Suman Treviño MD [address] [facility] [address] 01/24/2025 1:00 PM EDT Office Visit [facility] SLEEP [facility] PRACT[facility] [address] [place] [phone] Demario Silva DO [address] [place] [address] 02/15/2025 1:[address] [facility] MAMMOGRAPHY SERVICES BL [address], [place] [address] 02/27/2025 1:00 PM EDT Office Visit [facility] ORTHOPEDIC PODIATRY PRACTICE [address], 6th [place] [address] Alexandr Zarate DPM [address] [facility] [place] [phone] 02/28/2025 1:45 PM EDT Office Visit [facility] [address], 10th [place] [address] Lucy Christopher DO [address] [place] [address] 03/19/2025 1:15 PM EDT Office Visit [facility] GASTROENTEROLOGY PRACTICE [address], 2nd [place] [address] 08/16/2025 10:00 AM EST Office Visit [facility] ENDOCRINOLOGY PRACTICE [address], 8th [place] [address] Brigitte Mahoney NP [address] [place] [phone] 12/13/2025 11:00 AM EDT Office Visit [facility] OBGYN PRACT[facility] [address], 7th [place] [address] Janice Woodward, CLAU [address] [place] [address] Scheduled Referrals Name Type Priority Associated Diagnoses Order Schedule Ambulatory referral/appointment with Hematology Outpatient Referral Routine Monoclonal gammopathy Expected: 11/17/2024 (Approximate), Expires: 11/17/2025 documented as of this encounter Visit Diagnoses Diagnosis Monoclonal gammopathy- Primary Monoclonal paraproteinemia documented in this encounter Additional Health Concerns Assessment Noted Time PHQ-9 Depression Total Score: 0 07/24/19 23 3:00 PM EST documented as of this encounter Care Teams Sheet Metal Apprentice Relationship Specialty Start Date End Date Trevor Rolon DO [address] [facility] [address] [place] [address] PCP - General Lucy Christopher DO [address] [facility] [place] [address] Consulting Physician Oncology 10/17/24 documented as of this encounter
--- OUTSIDE RECORDS SUMMARY | 2025-01-02 18:13 | XMS_ITS | Encounter Summary ---
Author Organization [facility] nter Address [address] [place] [address] Care Team Providers Care Supervisor Special Services Name Role Phone Trevor Rolon DO Primary Care Provider Lucy Christopher DO Unavailable Encounter Details Date Type Department Care Team (Latest Contact Info) Description 11/27/2024 Travel Social History Tobacco Use Types Packs/Day [...] often do you attend chur ch or faith services? More than 4 times per year 07/24/2022 Do you belong to any clubs o r organizations such as cheondoism groups, unions, fraternal or athletic groups, or [...] Recorded Patient Health Questionnaire-2 Score 0 09/28/2023 [facility] of Occupat ional [facility] - Occupational Stress Questionnaire Answer Date [...] place to sleep or slept in a correction (including now)? No 07/24/2022 Comments No Sex [...] Description 01/22/2025 12:00 PM EDT Office Visit [facility] NEUROLOGY PRACTICE [address] , 8th [place] [address] Ben Knox MD [facility] [place] [address] 01/22/2025 2:00 PM EDT Office Visit [facility] RHEUMATOLOGY PRACTICE [address] , 8th [place] [address] Suman Treviño MD [address] [place] [address]. [place] [address] 01/24/2025 1:00 PM EDT Office Visit [facility] SLEEP LAB PRACTICE [address] Ramsey [facility] [place] [address] Demario Silva DO [address] [place] [address] 02/15/2025 1:20 PM EDT Appointment [facility] MAMMOGRAPHY SERVICES BL D [address], [facility] [place] [address] 02/27/2025 1:00 PM EDT Office Visit [facility] ORTHOPEDIC PODIATRY PRACTICE [address], 6th [place] [address] Alexandr Zarate DPM [address] [place] [address] 02/28/2025 1:45 PM EDT Office Visit [facility] ONCOLOGY PRACTICE [address], 10th [place] [address] Lucy Christopher DO [address] [facility] [place] [address] 03/19/2025 1:15 PM EDT Office Visit [facility] GASTROENTEROLOGY PRACTICE [address], 2nd [place] [address] 08/16/2025 10:00 AM EST Office Visit [facility] ENDOCRINOLOGY PRACTICE [address], 8th [place] [address] Brigitte Mahoney NP [address] [facility] [place] [address] 12/13/2025 11:00 AM EDT Office Visit [facility] [address], 7th [place] [address] Janice Woodward NP [address] [place] [id number] documented as of this encounter Visit Diagnoses Not on filedocumented in this encounter Additional Health Concerns Assessment Noted Time PHQ-9 Depression Total Score: 0 07/24/19 23 3:00 PM EST documented as of this encounter Care Teams Supervisor Special Services Relationship Specialty Start Date End Date Trevor Rolon DO [address] [facility] [address] [place] [id number] PCP - General Lucy Christopher DO [address] [place] [address] [place] [address] Consulting Physician Oncology 10/17/24 documented as of this encounter
--- OUTSIDE RECORDS SUMMARY | 2025-01-02 18:13 | XMS_ITS | Encounter Summary ---
Author Organization [facility] nter Address [address] [place] [address] Care Team Providers Care Hand Packager Name Role Phone Trevor Rolon DO Primary Care Provider Lucy Christopher DO Unavailable Encounter Details Date Type Department Care Team (Latest Contact Info) Description 11/06/2024 Travel Social History Tobacco Use Types Packs/Day [...] often do you attend chur ch or hinduism services? More than 4 times [...] Recorded Patient Health Questionnaire-2 Score 0 09/28/2023 [facility] of Occupat ional [facility] - Occupational Stress Questionnaire Answer Date [...] place to sleep or slept in a fci (including now)? No 07/24/2022 Comments No Sex [...] [facility] NEUROLOGY [facility]ACTICE [address] , 8th [place] [address] Ben Knox MD [facility] [place] [address] 01/22/2025 2:00 PM EDT Office Visit [facility] RHEUMATOLOGY PRACTICE [address] , 8th [place] [address] Suman Treviño MD [address] [place] [address]. [place] [address] 01/24/2025 1:00 PM EDT Office Visit [facility] SLEEP [facility] PRACT[facility] [address] Tommy [place] [address] Demario Silva DO [address] [place] [address] 02/15/2025 1:20 PM EDT Appointment [facility] MAMMOGRAPHY SERVICES BL D [address], [place] [address] 02/27/2025 1:00 PM EDT Office Visit [facility] ORTHOPEDIC PODIATRY PRACTICE [address], 6th [place] [address] Alexandr Zarate DPM [address] [place] [address] 02/28/2025 1:45 PM EDT Office Visit [facility] ONCOLOGY PRACTICE [address], 10th [place] [address] Lucy Christopher DO [address] [facility] [place] [address] 03/19/2025 1:15 PM EDT Office Visit [facility] GASTROENTEROLOGY PRACTICE [address], 2nd [place] [address] 08/16/2025 10:00 AM EST Office Visit [facility] ENDOCRINOLOGY PRACTICE [address], 8th [place] [address] Brigitte Mahoney NP [address] [facility] [place] [address] 12/13/2025 11:00 AM EDT Office Visit [facility] [address], 7th [place] [address] Janice Woodward NP [address] [place] [phone] documented as of this encounter Visit Diagnoses Not on filedocumented in this encounter Additional Health Concerns Assessment Noted Time PHQ-9 Depression Total Score: 0 07/24/19 23 3:00 PM EST documented as of this encounter Care Teams Hand Packager Relationship Specialty Start Date End Date Trevor Rolon DO [address] [facility] [address] [place] [phone] PCP - General Lucy Christopher DO [address] [place] [address] [place] [address] Consulting Physician Oncology 10/17/24 documented as of this encounter
--- OUTSIDE RECORDS SUMMARY | 2025-01-02 18:13 | XMS_ITS | Encounter Summary ---
Author Organization Healthcare Address [address] [place] [address] Care Team Providers Care Registered Nurse Cardiac Name Role Phone Trevor Rolon DO Primary Care Provider [phone] Mc Grant DO Unavailable [phone] Encounter Details Date Type Department Care Team (Late st Contact Info) Description 09/28/2023 Orders Only External Location [address] [place] [address] Provider, External Social History Tobacco Use Types [...] Name Priority Date/Time Associated Diagnosis Comments XR MSK OUTSIDE IMAGES 09/28/2023 10:53 AM EDT documented in this encounter Results * XR MSK OUTSIDE IMAGES (09/28/2023 10:53 AM EDT) Anatomical Region Laterality Modality Radiographic Zayda ging 09/28/2023 10:5 3 AM EDT us External Provider IMG XR PROCEDURES [...] documented as of this encounter Care Teams Registered Nurse Cardiac Relationship Specialty Start Date End Date Trevor Rolon DO [address] [facility] [address] [place] [address] PCP - General 11/22/20 Mc Grant DO [address] [facility] [address] [place] [address] Referring Physician Gastroenterology 02/21/24 documented as of this encounter
--- OUTSIDE RECORDS SUMMARY | 2025-01-02 18:13 | XMS_ITS | Encounter Summary ---
Author Organization Healthcare Address [address] [place] [address] Care Team Providers Care Fish Cutting Machine Operator Name Role Phone Trevor Rolon DO Primary Care Provider [phone] Mc Grant DO Unavailable [phone] Encounter Details Date Type Department Care Team (Late st Contact Info) Description 01/06/2023 Orders Only External Location [address] [place] [address] Provider, External Social History Tobacco Use Types [...] documented as of this encounter Care Teams Fish Cutting Machine Operator Relationship Specialty Start Date End Date Trevor Rolon DO [address] [facility] [address] [place] [address] PCP - General 11/22/20 Mc Grant DO [address] [facility] [address] [place] [address] Referring Physician Gastroenterology 02/21/24 documented as of this encounter
--- OUTSIDE RECORDS SUMMARY | 2025-01-02 18:13 | XMS_ITS | Encounter Summary ---
Author Organization [facility] nter Address [address] [place] [address] Care Team Providers Care Drawer In Name Role Phone Trevor Rolon DO Primary Care Provider Lucy Christopher DO Unavailable Encounter Details Date Type Department Care Team (Latest Contact Info) Description 11/15/2024 Travel Social History Tobacco Use Types Packs/Day [...] often do you attend chur ch or confucianist services? More than 4 times per year [...] Recorded Patient Health Questionnaire-2 Score 0 09/28/2023 [facility] of Occupat ional [facility] - Occupational Stress Questionnaire Answer [...] place to sleep or slept in a retirement (including now)? No 07/24/2022 Comments No Sex [...] Description 01/22/2025 12:00 PM EDT Office Visit [facility] NEUROLOGY PRACTICE [address] , 8th [place] [address] Ben Knox MD [facility] [address] [address] 01/22/2025 2:00 PM EDT Office Visit [facility] RHEUMATOLOGY PRACTICE [address] , 8th [place] [address] Suman Treviño MD [address] [place] [address]. [place] [address] 01/24/2025 1:00 PM EDT Office Visit [facility] SLEEP LAB PRACTICE [address] Ramsey [facility] [place] [address] Demario Silva DO [address] [place] [address] 02/15/2025 1:20 PM EDT Appointment [facility] MAMMOGRAPHY SERVICES BL D [address], [facility] [place] [address] 02/27/2025 1:00 PM EDT Office Visit [facility] ORTHOPEDIC PODIATRY PRACTICE [address], 6th [place] [address] Alexandr Zarate DPM [address] [place] [address] 02/28/2025 1:45 PM EDT Office Visit [facility] ONCOLOGY PRACTICE [address], 10th [place] [address] Lucy Christopher DO [address] [facility] [place] [address] 03/19/2025 1:15 PM EDT Office Visit [facility] GASTROENTEROLOGY PRACTICE [address], 2nd [place] [address] 08/16/2025 10:00 AM EST Office Visit [facility] ENDOCRINOLOGY PRACTICE [address], 8th [place] [address] Brigitte Mahoney NP [address] [facility] [place] [address] 12/13/2025 11:00 AM EDT Office Visit [facility] [address], 7th [place] [address] Janice Woodward NP [address] [place] [id number] documented as of this encounter Visit Diagnoses Not on filedocumented in this encounter Additional Health Concerns Assessment Noted Time PHQ-9 Depression Total Score: 0 07/24/19 23 3:00 PM EST documented as of this encounter Care Teams Drawer In Relationship Specialty Start Date End Date Trevor Rolon DO [address] [facility] [address] [place] [id number] PCP - General Lucy Christopher DO [address] [place] [address] [place] [address] Consulting Physician Oncology 10/17/24 documented as of this encounter
--- OUTSIDE RECORDS SUMMARY | 2025-01-02 18:13 | XMS_ITS | Encounter Summary ---
Author Organization Healthcare Address [address] [place] [address] Care Team Providers Care Binder And Wrapper Packer Name Role Phone Trevor Rolon DO Primary Care Provider [phone] Mc Grant DO Unavailable [phone] Encounter Details Date Type Department Care Team (Late st Contact Info) Description 03/01/2023 Orders Only External Location [address] [place] [address] Provider, External Social History Tobacco Use Types [...] Name Priority Date/Time Associated Diagnosis Comments MR NEURO OUTSIDE IMAGES 03/01/2023 9:53 AM EDT documented in this encounter Results * MR NEURO OUTSIDE IMAGES (03/01/2023 9:53 AM EDT) Anatomical Region Laterality [...] documented as of this encounter Care Teams Binder And Wrapper Packer Relationship Specialty Start Date End Date Trevor Rolon DO [address] [facility] [address] [place] [address] PCP - General 11/22/20 Mc Grant DO [address] [facility] [address] [place] [address] Referring Physician Gastroenterology 02/21/24 documented as of this encounter
--- OUTSIDE RECORDS SUMMARY | 2025-01-02 18:13 | XMS_ITS | Encounter Summary ---
Author Organization [facility] nter Address [address] [place] [address] Care Team Providers Care Rainbow Trout Farm Manager Name Role Phone Trevor Rolon DO Primary Care Provider Lucy Christopher DO Unavailable Encounter Details Date Type Department Care Team (Latest Contact Info) Description 11/08/2024 Travel Social History Tobacco Use Types Packs/Day [...] often do you attend chur ch or anabaptist services? More than 4 times per year 07/24/2022 Do you belong to any clubs o r organizations such as yazidism groups, unions, fraternal or athletic groups, or [...] Recorded Patient Health Questionnaire-2 Score 0 09/28/2023 [facility] of Occupat ional [facility] - Occupational Stress Questionnaire Answer [...] PRACTICE [address] , 8th [place] [address] Ben Knox MD [facility] [address] [facility] [place] [address] 01/22/2025 2:00 PM EDT Office Visit [facility] RHEUMATOLOGY PRACTICE [address] , 8th [place] [address] Suman Treviño MD [address] [place] [address]. [place] [address] 01/24/2025 1:00 PM EDT Office Visit [facility] SLEEP LAB PRACTICE [address] Tommy Ramsey [facility] [place] [address] Demario Silva DO [address] [place] [address] 02/15/2025 1:20 PM EDT Appointment [facility] MAMMOGRAPHY SERVICES BL D [address], [facility] [place] [address] 02/27/2025 1:00 PM EDT Office Visit [facility] ORTHOPEDIC PODIATRY PRACTICE [address], 6th [place] [address] Alexandr Zarate DPM [address] [place] [address] 02/28/2025 1:45 PM EDT Office Visit [facility] ONCOLOGY PRACTICE [address], 10th [place] [address] Lucy Christopher DO [address] [facility] [place] [address] 03/19/2025 1:15 PM EDT Office Visit [facility] GASTROENTEROLOGY PRACTICE [address], 2nd [place] [address] 08/16/2025 10:00 AM EST Office Visit [facility] ENDOCRINOLOGY PRACTICE [address], 8th [place] [address] Brigitte Mahoney NP [address] [facility] [place] [address] 12/13/2025 11:00 AM EDT Office Visit [facility] [address], 7th [place] [address] Janice Woodward NP [address] [place] [id number] documented as of this encounter Visit Diagnoses Not on filedocumented in this encounter Additional Health Concerns Assessment Noted Time PHQ-9 Depression Total Score: 0 07/24/19 23 3:00 PM EST documented as of this encounter Care Teams Rainbow Trout Farm Manager Relationship Specialty Start Date End Date Trevor Rolon DO [address] [facility] [address] [place] [id number] PCP - General Lucy Christopher DO [address] [place] [address] [place] [address] Consulting Physician Oncology 10/17/24 documented as of this encounter
--- OUTSIDE RECORDS SUMMARY | 2025-01-02 18:13 | XMS_ITS | Encounter Summary ---
Author Organization [facility] nter Address [address] [place] [address] Care Team Providers Care Television Inspector Name Role Phone Trevor Rolon DO Primary Care Provider Lucy Christopher DO Unavailable Reason for Referral * Consultation (Routine) - Authorized Specialty Diagnoses / Procedures Referred By Truong bella Referred To Contact Obstetrics and Gynecology Diagnoses Well woman exam with routine gynecological exam Procedures SD OFFICE/OUTPATIENT NEW SF MDM 15 MINUTES SD OFFICE/OUTPATIENT NEW LOW MDM 30 MINUTES SD OFFICE/OUTPATIENT NEW MODERATE MDM 45 MINUTES SD OFFICE/OUTPATIENT NEW HIGH MDM 60 MINUTES SD OFFICE/OUTPATIENT ESTABLISHED SF MDM 10 MIN SD OFFICE/OUTPATIENT ESTABLISHED LOW MDM 20 MIN SD OFFICE/OUTPATIENT ESTABLISHED MOD MDM 30 MIN SD OFFICE/OUTPATIENT ESTABLISHED HIGH MDM 40 MIN Laquita Corral PA [address] [facility] [address] [place] [address] Phone: tel: fax: Lupe Crisostomo DO [address] [place] [address] Phone: tel: fax: Referral ID Status Reason Start Date Expiration Date Visits Requested Visits Authorized [id number] Authorized Specialty Services Required 11/28/2024 11/28/2025 1 3 Encounter Details Date Type Department Care Team (Latest Contact Info) Description 11/28/2024 Community Orders [facility] Link [address] [place] [address] Laquita Corral PA [address] [place] [address] Well woman exam with routine gynecological exam (Primary Dx) Social History Tobacco Use Types [...] How often do you attend chur or moravian services? More than 4 times per year 07/24/2022 Do you belong to any clubs o r organizations such as mandaeism groups, unions, fraternal or athletic groups, or [...] Recorded Patient Health Questionnaire-2 Score 0 09/28/2023 [facility] of Occupat ional Health - [...] NEUROLOGY PRACTICE [address], 8th [place] [address] Ben Knox MD [address] [place], [place] [id number] 01/22/2025 2:00 PM EDT Office Visit [facility] RHEUMATOLOGY PRACTICE [address], 8th [place] [address] Suman Treviño MD [address] [facility] [place] [address] 01/24/2025 1:00 PM EDT Office Visit [facility] SLEEP LAB PRACTICE [address] [place] [address] Demario Silva DO [address] [place] [address] 02/15/2025 1:20 PM EDT Appointment [facility] MAMMOGRAPHY SERVICES [facility] D [address] , [facility] [place] [address] 02/27/2025 1:00 PM EDT Office Visit [facility] ORTHOPEDIC PODIATRY PRACTICE [address], 6th [place] [address] Alexandr Zarate DPM [address] [facility] [place] [address] 02/28/2025 1:45 PM EDT Office Visit [facility] ONCOLOGY PRACTICE [address], 10th [place] [address] Lucy Christopher DO [address] [place] [address] 03/19/2025 1:15 PM EDT Office Visit [facility] GASTROENTEROLOGY PRACTICE [address], 2nd [place] [address] 08/16/2025 10:00 AM EST Office Visit [facility] ENDOCRINOLOGY PRACTICE [address], 8th [place] [address] Brigitte Mahoney NP [address] [place] [address] 12/13/2025 11:00 AM EDT Office Visit [facility] OBGYN PRACTICE [address], 7th [place] [address] Janice Woodward NP [address] [place] [phone] Scheduled Referrals Name Type Priority Associated Diagnoses Orde r Schedule Ambulatory referral/appointmen t with Gynecology Outpatient Referral Routine Well woman exam with routine gynecological exam Expected: 11/28/2024 (Approximate), Expires: 11/28/2025 documented as of this encounter Visit Diagnoses Diagnosis Well woman exam with routine gynecological exam- Primary Routine gynecological examination documented in this encounter Additional Health Concerns Assessment Noted Time PHQ-9 Depression Total Score: 0 07/24/19 23 3:00 PM EST documented as of this encounter Care Teams Television Inspector Relationship Specialty Start Date End Date Trevor Rolon DO [address] [facility] [address] [place] [address] PCP - General Lucy Christopher DO [address] [place] [phone] Consulting Physician Oncology 10/17/24 documented as of this encounter
--- OUTSIDE RECORDS SUMMARY | 2025-01-02 18:13 | XMS_ITS | Encounter Summary ---
Author Organization [facility] nter Address [address] [place] [address] Care Team Providers Care Membership Administrator Name Role Phone Trevor Rolon DO Primary Care Provider Lucy Christopher DO Unavailable Encounter Details Date Type Department Care Team (Late st Contact Info) Description 02/25/2023 Orders Only [facility] ENDOCRINOLOGY PRACTICE [address], 8th [place] [address] Brigitte Mahoney NP [address] [place] [address] Social History Tobacco Use Types [...] week 07/24/2022 How often do you attend [facility] or tenriism services? More than 4 times per year 07/24/2022 Do you belong to any clubs o r organizations such as mosque groups, unions, fraternal or athletic groups, or [...] Recorded Patient Health Questionnaire-2 Score 0 07/24/2022 [facility] of Occupat ional Health - Occupational Stress [...] suspected to have Coronavirus/COVID-19? No / Unsure 01/27/2023 9:07 AM EDT documented as of this encounter Plan of Treatment Upcoming Encounters Date Type Department Care Team (Late st Contact Info) Description 01/22/2025 12:00 PM EDT Office Visit [facility] NEUROLOGY PRACTICE [address], 8th Floor [facility] [place] [address] Ben Knox MD [address] [place] [address] 01/22/2025 2:00 PM EDT Office Visit [facility] RHEUMATOLOGY PRACTICE [address], 8th Floor [place] [address] Suman Treviño MD [address] [place] [place] [address] 01/24/2025 1:00 PM EDT Office Visit [facility] SLEEP LAB PRACTICE [address], [place] [address] Demario Silva DO [address] [facility] [place] [address] 02/15/2025 1:20 PM EDT Appointment [facility] MAMMOGRAPHY SERVICES BL D [address], [place] [address] 02/27/2025 1:00 PM EDT Office Visit [facility] ORTHOPEDIC PODIATRY PRACTICE [address], 6th [place] [address] Alexandr Zarate, OLLIE [address] [facility] [place] [address] 02/28/2025 1:45 PM EDT Office Visit [facility] [address], 10th [place] [address] Lucy Christopher, [address] [place] [address] 03/19/2025 1:15 PM EDT Office Visit [facility] GASTROENTEROLOGY PRACTICE [address], 2nd [place] [address] 08/16/2025 10:00 AM EST Office Visit [facility] ENDOCRINOLOGY PRACTICE [address], 8th [place] [address] Brigitte Mahoney, CLAU [address] [place] [address] 12/13/2025 11:00 AM EDT Office Visit [facility] [address], 7th [place] [address] Janice Woodward, FIXED INCOME MANAGER [address] [place] [address] documented as of this encounter Visit Diagnoses Not on filedocumented in this encounter Additional Health Concerns Assessment Noted Time PHQ-9 Depression Total Score: 0 07/24/19 23 3:00 PM EST documented as of this encounter Care Teams Membership Administrator Relationship Specialty Start Date End Date Trevor Rolon DO [address] [facility] [address] [place] [address] PCP - General Lucy Christopher DO [address] A [place], [place] [id number] Consulting Physician Oncology 10/17/24 documented as of this encounter
--- OUTSIDE RECORDS SUMMARY | 2025-01-02 18:13 | XMS_ITS | Encounter Summary ---
Author Organization [facility] nter Address [address] [place] [address] Care Team Providers Care Dry Cleaner Helper Name Role Phone Trevor Rolon DO Primary Care Provider Lucy Christopher DO Unavailable Reason for Referral * Diagnostic Medical (Routine) - Closed Specialty Diagnoses / Procedures Referred By Contact Referred To Contact Gastroenterology Diagnoses GAVE (gastric antral vascular ectasia) Procedures EGD NE ESOPHAGOGASTRODUODENOSCOPY TRANSORAL DIAGNOSTIC NE EGD TRANSORAL BIOPSY SINGLE/MULTIPLE NE EGD BALLOON DILATION ESOPHAGUS <30 MM DIAM NE ESPHGOSCOPY FLEX W/BAND LIGATION ESOPHGL VARICES Mc Grant DO [address] [facility] [place] [address] Phone: tel:[phone] fax:[phone] [facility] ENDOSCOPY [address] 3rd [place] [address] Phone: tel:[phone] fax:[phone] Referral ID Status Reason Start Date Expiration Date V isits Requested Visits Authorized [id number] Closed Perform Procedure 12/29/2024 12/29/2025 1 1 Encounter Details Date Type Department Care Team (Latest Contact Info) Description 11/16/2024 Orders Only [facility]STRO[facility]OLOG[facility] [address], 2nd Floor [place] [address] Bharti Boogie [address] [place] [address] GAVE (gastric antral vascular ectasia) Social History Tobacco Use Types Packs/Day Years [...] Recorded Patient Health Questionnaire-2 Score 0 09/28/2023 [facility] of Occupat ional Health - [...] 01/22/2025 12:00 PM EDT Office Visit [facility] NEUROLOGY PRACTICE [address], 8th Floor [place] [id number] Ben Knox MD [facility] [address] [facility] [place] [address] 01/22/2025 2:00 PM EDT Office Visit [facility] RHEUMATOLOGY PRACTICE [address] , 8th [place] [address] Suman Treviño MD [facility] [address] [facility] [place] [address] 01/24/2025 1:00 PM EDT Office Visit [facility] [address] [facility] [place] [phone] Demario Silva DO [address] [place] [address] 02/15/2025 1:20 PM EDT Appointment [facility] MAMMOGRAPHY SERVICES BL D [address] , [facility] [place] [address] 02/27/2025 1:00 PM EDT Office Visit [facility] ORTHOPEDIC PODIATRY PRACTICE [address], 6th [place] [address] Alexandr Zarate DPM [address] [facility] [place] [id number] 02/28/2025 1:45 PM EDT Office Visit [facility] ONCOLOGY PRACTICE [address], 10th [place] [address] Lucy Christopher DO [address] [facility] [place] [id number] 03/19/2025 1:15 PM EDT Office Visit [facility] GASTROENTEROLOGY PRACTICE [address], 2nd [place] [address] 08/16/2025 10:00 AM EST Office Visit [facility] ENDOCRINOLOGY PRACTICE [address], 8th [place] [address] Brigitte Mahoney NP [address] [facility] [place] [address] 12/13/2025 11:00 AM EDT Office Visit [facility] OBGYN PRACTICE [address], 7th [place] [address] Janice Woodward NP [address] [place] [address] documented as of this encounter Results * EGD (12/15/2024 10:49 [...] 12/15/2024 10:50 AM EDT Patient Name: Trudy Ortegaon Attending MD: Mc [...] by the physician, the nurse and the silver service waiter. The procedure was verified in the pre-procedure [...] 3 months. Procedure Code(s): --- Professional --- 05974, Esophagogastroduodenoscopy, flexible, transoral; with control of bleeding, any method --- Technical --- 24736, Esophagogastroduodenoscopy, flexible, transoral; with control of bleeding, any method Diagnosis Code(s): --- Professional --- K22.2, Esophageal obstruction K44.9, Diaphragmatic hernia without obstruction or gangrene K31.819, Angiodysplasia of stomach and duodenum without bleeding --- Technical --- K22.2, Esophageal obstruction K44.9, Diaphragmatic hernia without obstruction or gangrene K31.819, Angiodysplasia of stomach and duodenum without bleeding CPT copyright 2020 [employer]. All rights reserved. The codes documented in this report are preliminary and upon chief of vital statistics review may be revised to meet current compliance requirements. DO Mc Ceja Jr., DO 12/15/2024 10:50:45 AM This report has been signed electronically. Number of Addenda: 0 Note Initiated On: 12/15/2024 10:31 AM Scope In: Scope Out: Procedure Note Mc Grant DO - 12/15/2024 Patient Name: Trudy Peña Attending MD: Mc [...] procedure by the physician,the nurse and the silver service waiter. The procedure wasverified in the pre-procedure area. [...] 3 months. Procedure Code(s): --- Professional --- 70744, Esophagogastroduodenoscopy, flexible, transoral; with control of bleeding, any method --- Technical --- 61365, Esophagogastroduodenoscopy, flexible, transoral; with control of bleeding, any method Diagnosis Code(s): --- Professional --- K22.2, Esophageal obstruction K44.9, Diaphragmatic hernia without obstruction or gangrene K31.819, Angiodysplasia of stomach and duodenum without bleeding --- Technical --- K22.2, Esophageal obstruction K44.9, Diaphragmatic hernia without obstruction or gangrene K31.819, Angiodysplasia of stomach and duodenum without bleeding CPT copyright 2020 [employer]. All rights reserved. The codes documented in this report are preliminary and upon chief of vital statistics reviewmay be revised to meet current compliance [...] Diagnoses Diagnosis GAVE (gastric antral vascular ectasia) GAVE (gastric antral vascular ectasia) documented in this encounter Additional Health Concerns Assessment Noted Time PHQ-9 Depression Total Score: 0 07/24/19 23 3:00 PM EST documented as of this encounter Care Teams Dry Cleaner Helper Relationship Specialty Start Date End Date Trevor Rolon DO [address] [facility] [address] [place] [address] PCP - General Lucy Christopher DO [address] [place] [address] [place] [address] Consulting Physician Oncology 10/17/24 documented as of this encounter
--- OUTSIDE RECORDS SUMMARY | 2025-01-02 18:14 | XMS_ITS | Encounter Summary ---
Author Organization [facility] nter Address [address] [place] [address] Care Team Providers Care Budget Coordinator Name Role Phone Trevor Rolon DO Primary Care Provider Lucy Christopher DO Unavailable Reason for Visit * Reason Comments Med Refill Encounter Details Date Type Department Care Team (Late st Contact Info) Description 08/08/2024 Refill [facility] ENDOCRINOLOGY PRACTICE [address], 8th [place] [address] Brigitte Mahoney, CLAU [address] [place] [address] Social History Tobacco Use Types [...] 07/24/2022 How often do you attend [facility] or druze services? More than 4 times per year [...] Recorded Patient Health Questionnaire-2 Score 0 09/28/2023 [facility] [place] of Occupat ional Health - Occupational Stress [...] as of this encounter Miscellaneous Notes * Telephone Encounter - Brigitte Mahoney NP - 08/08/2024 1:27 PM EST Approving, but needs appt for additional refills. documented in this encounter Plan of Treatment Upcoming Encounters Date Type Department Care Team (Late st Contact Info) Description 01/22/2025 12:00 PM EDT Office Visit [facility] NEUROLOGY PRACTICE [address] 8th [place] [address] Ben Knox MD [address] [place] [address] 01/22/2025 2:00 PM EDT Office Visit [facility] RHEUMATOLOGY PRACTICE [address], 8th [place] [address] Suman Treviño MD [address] [facility] [place] [address] 01/24/2025 1:00 PM EDT Office Visit [facility] SLEEP LAB PRACTICE [address], Tommy [facility] [place] [address] Demario Silva DO [address] [place] [id number] 02/15/2025 1:20 PM EDT Appointment [facility] MAMMOGRAPHY SERVICES BL D [address], [facility] [place] [address] 02/27/2025 1:00 PM EDT Office Visit [facility] ORTHOPEDIC PODIATRY PRACTICE [address], 6th [place] [address] Alexandr Zarate, OLLIE [address] [facility] [place] [address] 02/28/2025 1:45 PM EDT Office Visit [facility] [address], 10th [place] [address] Lucy Christopher DO [address] [place] [address] 03/19/2025 1:15 PM EDT Office Visit [facility] GASTROENTEROLOGY PRACTICE [address], 2nd [place] [address] 08/16/2025 10:00 AM EST Office Visit [facility] ENDOCRIN[facility] [address], 8th Floor [facility] [place] [address] Brigitte Mahoney, CLAU [address] [place] [address] 12/13/2025 11:00 AM EDT Office Visit [facility] [address], 7th Floor [place] [address] Janice Woodward NP [address] [place] [facility] documented as of this encounter Visit Diagnoses Not on filedocumented in this encounter Additional Health Concerns Assessment Noted Time PHQ-9 Depression Total Score: 0 07/24/19 23 3:00 PM EST documented as of this encounter Care Teams Budget Coordinator Relationship Specialty Start Date End Date Trevor Rolon DO [address] [facility] [address] [place] [address] PCP - General Lucy Christopher DO [address] [place] [address] Consulting Physician Oncology 10/17/24 documented as of this encounter
--- OUTSIDE RECORDS SUMMARY | 2025-01-02 18:14 | XMS_ITS | Encounter Summary ---
Author Organization [facility] nter Address [address] [place] [address] Care Team Providers Care Hospital Supervisor Name Role Phone Trevor Rolon DO Primary Care Provider Lucy Christopher DO Unavailable Encounter Details Date Type Department Care Team (Late st Contact Info) Description 07/17/2024 Orders Only [facility] NEUROLOGY PRACTICE [address], 8th [place] [address] Lupe Villalta, ANDROID DEVELOPER [address] [place] [address] Social History Tobacco Use Types [...] How often do you attend chur or zoroastrian services? More than 4 times per year 07/24/2022 Do you belong to any clubs o r organizations such as christianity groups, unions, fraternal or athletic groups, or [...] Recorded Patient Health Questionnaire-2 Score 0 09/28/2023 [facility] [place] of Occupat ional Health - Occupational Stress [...] PRACTICE [address], 8th [place] [address] Ben Knox MD [address] [place] [address] 01/22/2025 2:00 PM EDT Office Visit [facility] RHEUMATOLOGY PRACTICE [address], 8th [place] [address] Suman Treviño MD [address] jakub[address] [facility] [place] [address] 01/24/2025 1:00 PM EDT Office Visit [facility] SLEEP LAB PRACTICE [address] Tommy [facility] [place] [address] Demario Silva DO [address] [place] [id number] 02/15/2025 1:20 PM EDT Appointment [facility] MAMMOGRAPHY SERVICES BL D [address], [facility] [place] [address] 02/27/2025 1:00 PM EDT Office Visit [facility] ORTHOPEDIC PODIATRY PRACTICE [address], 6th [place] [address] Alexandr Zarate DPM [address] [facility] [place] [address] 02/28/2025 1:45 PM EDT Office Visit [facility] ONCOLOGY PRACTICE [address], 10th [place] [address] Lucy Christopher, DO [address] [facility] [place] [id number] 03/19/2025 1:15 PM EDT Office Visit [facility] GASTROENTEROLOGY PRACTICE [address], 2nd [place] [address] 08/16/2025 10:00 AM EST Office Visit [facility] ENDOCRINOLOGY PRACTICE [address], 8th [place] [address] Brigitte Mahoney, CLAU [address] [facility] [place] [address] 12/13/2025 11:00 AM EDT Office Visit [facility] OBGYN PRACTICE [address], 7th [place] [address] Janice Woodward, ANDROID DEVELOPER [address] [place] [id number] documented as of this encounter Visit Diagnoses Not on filedocumented in this encounter Additional Health Concerns Assessment Noted Time PHQ-9 Depression Total Score: 0 07/24/19 23 3:00 PM EST documented as of this encounter Care Teams Hospital Supervisor Relationship Specialty Start Date End Date Trevor Rolon DO [address] [facility] [address] [place] [address] PCP - General Lucy Christopher DO [address] [place] [id number] Consulting Physician Oncology 10/17/24 documented as of this encounter
--- OUTSIDE RECORDS SUMMARY | 2025-01-02 18:14 | XMS_ITS | Encounter Summary ---
Author Organization [facility] nter Address [address] [place] [address] Care Team Providers Care [employer] Reading Teacher Name Role Phone Trevor Rolon DO Primary Care Provider Lucy Christopher DO Unavailable Encounter Details Date Type Department Care Team (Late st Contact Info) Description 09/01/2024 Orders Only [facility] ENDOCRINOLOGY PRACTICE [address], 8th [place] [address] Brigitte Mahoney NP [address] [place] [address] Social History Tobacco Use Types [...] often do you attend [facility] or evangelical services? More than 4 times per year 07/24/2022 Do you belong to any clubs o r organizations such as islam groups, unions, fraternal or athletic groups, or [...] Recorded Patient Health Questionnaire-2 Score 0 09/28/2023 [facility] [place] [facility] - Occupational Stress Questionnaire Answer [...] place to sleep or slept in a mcc (including now)? No 07/24/2022 Comments No Sex [...] PRACTICE [address], 8th [place] [address] Ben Knox MD [address] [place] [address] 01/22/2025 2:00 PM EDT Office Visit [facility] RHEUMATOLOGY PRACTICE [address], 8th [place] [address] Suman Treviño MD [address] jakub. [place] [address] 01/24/2025 1:00 PM EDT Office Visit [facility] SLEEP LAB PRACTICE [address], Tommy [id number] Demario Silva DO [address] [place] [id number] 02/15/2025 1:20 PM EDT Appointment [facility] MAMMOGRAPHY SERVICES BL D [address], [facility] [place] [address] 02/27/2025 1:00 PM EDT Office Visit [facility] ORTHOPEDIC PODIATRY PRACTICE [address], 6th [place] [address] Alexandr Zarate, OLLIE [address] [facility] [place] [id number] 02/28/2025 1:45 PM EDT Office Visit [facility] ONCOLOGY PRACTICE [address], 10th [place] [address] Lucy Christopher, DO [address] [facility] Katie [place] [address] 03/19/2025 1:15 PM EDT Office Visit [facility] GASTROENTEROLOGY PRACTICE [address], 2nd [place] [address] 08/16/2025 10:00 AM EST Office Visit [facility] ENDOCRINOLOGY PRACTICE [address], 8th [place] [address] Brigitte Mahoney, CLAU [address] dg [place] [id number] 12/13/2025 11:00 AM EDT Office Visit [facility] OBGYN PRACTICE [address], 7th [place] [phone] Janice Woodward, STAFF RADIOGRAPHER [address] [place] [address] documented as of this encounter Visit Diagnoses Not on filedocumented in this encounter Additional Health Concerns Assessment Noted Time PHQ-9 Depression Total Score: 0 07/24/19 23 3:00 PM EST documented as of this encounter Care Teams [employer] Reading Teacher Relationship Specialty Start Date End Date Trevor Rolon DO [address] [facility] [address] [place] [phone] PCP - General Lucy Christopher DO [address] [place] [phone] Consulting Physician Oncology 10/17/24 documented as of this encounter
--- OUTSIDE RECORDS SUMMARY | 2025-01-02 18:14 | XMS_ITS | Encounter Summary ---
Author Organization [facility] nter Address [address] [place] [address] Care Team Providers Care All Around Patternmaker Name Role Phone Trevor Rolon DO Primary Care Provider Lucy Christopher DO Unavailable Reason for Visit * Reason Comments Med Refill Encounter Details Date Type Department Care Team (Late st Contact Info) Description 07/08/[address] [facility] ENDOCRINOLOGY PRACTICE [address], 8th [place] [address] Brigitte Mahoney, CLAU [address] [place] [address] Social History Tobacco Use Types [...] week 07/24/2022 How often do you attend [facility] or temple services? More than 4 times per year 07/24/2022 Do you belong to any clubs o r organizations such as restoration groups, unions, fraternal or athletic groups, or [...] Recorded Patient Health Questionnaire-2 Score 0 09/28/2023 [facility] [place] of Occupat ional Health - Occupational Stress [...] place to sleep or slept in a group home (including now)? No 07/24/2022 Comments No Sex and Gender Information Value Date Recorded Sex Assigned at Female 09/17/2021 11:23 AM EST Legal Sex Female 11:23 AM EST Gender Identity Female 09/17/2021 11:23 AM EST Sexual Orientation Straight 09/17/2021 11 :23 AM EST documented as of this encounter Miscellaneous Notes * Telephone Encounter - Brigitte Mahoney NP - 07/11/2024 1:40 PM EST Approving, but needs appt for additional refills. documented in this encounter Plan of Treatment Upcoming Encounters Date Type Department Care Team (Late st Contact Info) Description 01/22/2025 12:00 PM EDT Office Visit [facility] NEUROLOGY PRACTICE [address] 8th [place] [address] Ben Knox MD [address] [place] [place] [address] 01/22/2025 2:00 PM EDT Office Visit [facility] RHEUMATOLOGY PRACTICE [address], 8th [place] [address] Suman Treviño MD [address] [facility] [place] [address] 01/24/2025 1:00 PM EDT Office Visit [facility] SLEEP LAB PRACTICE [address], Tommy [facility] [place] [address] Demario Silva DO [address] [place] [id number] 02/15/2025 1:20 PM EDT Appointment [facility] MAMMOGRAPHY SERVICES BL D [address], [facility] [place] [address] 02/27/2025 1:00 PM EDT Office Visit [facility] ORTHOPEDIC PODIATRY PRACTICE [address], 6th [place] [address] Alexandr Zarate, OLLIE [address] [facility] [place] [address] 02/28/2025 1:45 PM EDT Office Visit [facility] ONCOLOGY PRACTICE [address], 10th [place] [address] Lucy Christopher DO [address] [place] [address] 03/19/2025 1:15 PM EDT Office Visit [facility] GASTROENTEROLOGY PRACTICE [address], 2nd [place] [address] 08/16/2025 10:00 AM EST Office Visit [facility] ENDOCRINOLOGY PRACTICE [address], 8th Floor [facility] [place] [address] Brigitte Mahoney, CLAU [address] [place] [address] 12/13/2025 11:00 AM EDT Office Visit [facility] OBGYN PRACTICE [address], 7th Floor [place] [address] Janice Woodward NP [address] [place] [facility] documented as of this encounter Visit Diagnoses Not on filedocumented in this encounter Additional Health Concerns Assessment Noted Time PHQ-9 Depression Total Score: 0 07/24/19 23 3:00 PM EST documented as of this encounter Care Teams All Around Patternmaker Relationship Specialty Start Date End Date Trevor Rolon DO [address] [facility] [address] [place] [address] PCP - General Lucy Christopher DO [address] [place] [address] Consulting Physician Oncology 10/17/24 documented as of this encounter
--- OUTSIDE RECORDS SUMMARY | 2025-01-02 18:14 | XMS_ITS | Encounter Summary ---
Author Organization [facility] nter Address [address] [place] [address] Care Team Providers Care Environmental Test Technician Name Role Phone Trevor Rolon DO Primary Care Provider Lucy Christopher DO Unavailable Encounter Details Date Type Department Care Team (Late st Contact Info) Description 08/08/2024 Orders Only [facility] ENDOCRINOLOGY PRACTICE [address], 8th [place] [address] Brigitte Mahoney NP [address] [place] [address] Social History Tobacco Use Types [...] week 07/24/2022 How often do you attend [facility] or holiness services? More than 4 times per year 07/24/2022 Do you belong to any clubs o r organizations such as gnosticist groups, unions, fraternal or athletic groups, or [...] Recorded Patient Health Questionnaire-2 Score 0 09/28/2023 [facility] [place] [facility] - Occupational [...] place to sleep or slept in a longterm (including now)? No 07/24/2022 Comments No Sex [...] Description 01/22/2025 12:00 PM EDT Office Visit [facility] NEUROLOGY PRACTICE [address], 8th [place] [address] Ben Knox MD [address] [place] [address] 01/22/2025 2:00 PM EDT Office Visit [facility] RHEUMATOLOGY PRACTICE [address], 8th [place] [address] Suman Treviño MD [address] jak[place] [place] [address] 01/24/2025 1:00 PM EDT Office Visit [facility] SLEEP LAB PRACTICE [address], Tommy [phone] Demario Silva DO [address] [place] [phone] 02/15/2025 1:20 PM EDT Appointment [facility] MAMMOGRAPHY SERVICES BL D [address], [facility] [place] [address] 02/27/2025 1:00 PM EDT Office Visit [facility] ORTHOPEDIC PODIATRY PRACTICE [address], 6th [place] [address] Alexandr Zarate, OLLIE [address] [facility] [place] [phone] 02/28/2025 1:45 PM EDT Office Visit [facility] ONCOLOGY PRACTICE [address], 10th [place] [address] Lucy Christopher, DO [address] [facility] [place] [address] 03/19/2025 1:15 PM EDT Office Visit [facility] GASTROENTEROLOGY PRACTICE [address], 2nd [place] [address] 08/16/2025 10:00 AM EST Office Visit [facility] ENDOCRINOLOGY PRACTICE [address], 8th [place] [address] Brigitte Mahoney, CLAU [address] dg [place] [phone] 12/13/2025 11:00 AM EDT Office Visit [facility] OBGYN PRACTICE [address], 7th [place] [phone] Janice Woodward, RETAIL SALES PROFESSIONAL [address] [place] [address] documented as of this encounter Visit Diagnoses Not on filedocumented in this encounter Additional Health Concerns Assessment Noted Time PHQ-9 Depression Total Score: 0 07/24/19 23 3:00 PM EST documented as of this encounter Care Teams Environmental Test Technician Relationship Specialty Start Date End Date Trevor Rolon DO [address] [facility] [address] [place] [phone] PCP - General Lucy Christopher DO [address] [place] [id number] Consulting Physician Oncology 10/17/24 documented as of this encounter
--- OUTSIDE RECORDS SUMMARY | 2025-01-02 18:14 | XMS_ITS | Clinical Summary ---
Author Organization [facility] nter Address [address] [place] [address] Care Team Providers Care Television Inspector Name Role Phone Trevor Rolon DO Primary Care Provider Lucy Christopher DO Unavailable Allergies Active Allergy Reactions Criticality Noted Date Comments Iodine Itching,Rash High 10/10/2024 Wound Dressing Adhesive Rash Low 11/12/2021 Oxycodone Hallucinations Medium 07/24/2015 Pt states she is not allergic to oxycodone. Oxycodone-Acetaminophen Hives Medium 11/12/2021 Povidone Iodine Hives Medium 07/24/2015 Sulfa Drugs Hives Medium 11/12/2021 Sulfacetamide Hives Medium 07/24/2015 Vortioxetine Hives Medium 04/09/2020 Medications lansoprazole (Prevacid) [address] capsule Take 1 capsule (30 mg) by mouth before breakfast. Do not crush or chew. Active ergocalciferol (Vitamin D-2) 1.25 MG (64338 UT) capsule Take 1 capsule (1.25 mg) by mouth 1 (one) time per week. Active simvastatin (Zocor) 20 MG tablet Take 1 tablet (20 mg) by mouth at bedtime. Active rOPINIRole (Requip) 1 MG tablet Take 1 tablet (1 mg) by mouth in the morning, at noon, in the evening, and at bedtime. Active bumetanide (Bumex) 1 MG tablet Take 2 tablets (2 mg) by mouth in the morning. Active spironolactone (Aldactone) 100 MG tablet Take 1 tablet (100 mg) by mouth in the morning. Active potassium chloride CR (Klor-Con M20) 20 MEQ ER tablet Take 1 tablet (20 mEq) by mouth in the morning and 1 tablet (20 mEq) in the evening. 08/04/19 23 Active hydrOXYzine HCl (Atarax) 25 MG tablet Take 1 tablet (25 mg) by mouth if needed in the morning, at noon, and at bedtime for itching. Active LACTULOSE PO Take by mouth in the morning. Active FeroSul 325 (65 Fe) MG tablet Take 1 tablet (325 mg) by mouth in the morning. 04/27/20 23 Active lidocaine (Lidoderm) 5 % patch Apply 1 patch topically if needed each day for mild pain (1-4) or moderate pain (5-7). 01/08/20 23 Active Lifitegrast (Xiidra) 5 % solutionIndication s:Keratoconjunctiv itis sicca of both eyes not specified as Sjogren's INSTILL 1 DROP IN EACH EYE TWO TIMES A DAY 180 each 4 10/01/19 24 Active Additional Information Patient not taking.Reported on 12/14/2024 Diclofenac Sodium (Voltaren) 1 % gel Apply to affected area BID PRN 100 g 2 09/28/19 24 Active lisinopril 2.5 MG tablet Take 1 tablet (2.5 mg) by mouth in the morning. 05/11/20 24 Active desvenlafaxine (Pristiq) 50 MG 24 hr tablet Take 1 tablet (50 mg) by mouth at bedtime. Do not crush, chew, or split. Active Xifaxan 550 MG tabletIndications: Encephalopathy, hepatic TAKE 1 Tablet BY MOUTH EVERY MORNING AND AT BEDTIME 60 tablet 2 07/11/20 24 Active Continuous Glucose Sensor (Dexcom G7 Sensor) miscIndications:Ty pe 2 diabetes mellitus with hyperglycemia, with long-term current use of insulin 1 each q10 days. Use every 10 days 3 each 11 08/16/19 25 026 Active empagliflozin (Jardiance) 25 MG Take 1 tablet (25 mg) by mouth in the morning. 30 tablet 08/16/19 Active Semaglutide, 1 MG/DOSE, (Ozempic, 1 MG/DOSE,) 4 MG/3ML solution pen-injector Inject 1 mg under the skin 1 (one) time per week. Take 1 mg each week 3 mL 08/16/19 Active Insulin Pen Needle (Pen Sheldahl) 32G X 4 MM miscIndications:Ty pe 2 diabetes mellitus with hyperglycemia, with long-term current use of insulin Use 4 per day 100 each 09/01/19 25 Active insulin aspart (NovoLOG FLEXPEN) 100 UNIT/ML penIndications:Typ e 2 diabetes mellitus with hyperglycemia, with long-term current use of insulin Take 5 units at breakfast, lunch, and supper if premeal BS >150. Max daily dose 50 units 15 mL 09/01/19 Active Lantus SoloStar 100 UNIT/ML pen Take 20 units daily. Titrate to target glucose. Max daily dose 50 units. 15 mL 09/05/19 25 Active Additional Information Patient taking differently: 15 Units Subcutaneous Every morning, Take 20 units daily. Titrate to target glucose. Max daily dose 50 units., Reported on 12/14/2024 glucose blood (VCETouch Verio) test stripIndications:E 11.65 Use 3 per day. Code E11.65 100 each 10/20/19 Active ondansetron ODT (Zofran-ODT) 8 MG disintegrating tablet Take 4 mg by mouth every 8 (eight) hours if needed. 10/19/19 25 Active promethazine (Phenergan) 25 MG tablet if needed. Active busPIRone (Buspar) 7.5 MG tablet take 1 tablet by mouth two times a day as needed for anxiety Active pregabalin (Lyrica) 25 MG capsuleIndications :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,Restless leg syndrome Take 1 capsule (25 mg) by mouth in the morning and at bedtime. 60 capsule 2 11/21/19 25 025 Active Rimegepant Sulfate (Nurtec) 75 MG tablet dispersibleIndicat ions:Migraine Take 1 tab PO at the onset of a migraine. Do not exceed more than 1 tab in 24 hours. 8 tablet 5 11/21/19 25 Active Zinc 50 MG tablet Take 1 tablet (50 mg) by mouth in the morning. 30 tablet 2 11/29/19 25 Active Copper Gluconate 2 MG tablet Take 2 mg by mouth in the morning. 30 tablet 2 11/29/19 25 Active metoprolol succinate XL (Toprol-XL) 50 MG 24 hr tablet Take 1 tablet (50 mg) by mouth in the morning. Do not crush or chew. Active metoprolol succinate XL (Toprol-XL) 200 MG 24 hr tablet Take 50 mg by mouth in the morning. 04/13/20 24 025 Discontin ued(Thera py completed ) Active Problems Problem Noted Date Diagnosed Date Paroxysmal atrial fibrillation 11/13/2024 Type 2 diabetes mellitus wit h hyperglycemia, with long-term current use of insulin 09/10/2022 Assessment & Plan (08/16/2024 12:00 PM EST): Diabetes is stable. A1c is 5 Diabetes glucose target is 80-120 pre meal and 140-180 post meal or A1c <7 Reduce ozempic to .5mg each week d/t c/o N/V Continue diabetes meds same. Continue plate method meal plan. Hypoglycemia prevention and treatment discussed. Call office if glucose drops below 70. Diabetes management goal is to test blood glucose at least 3 times daily or CGMS and bring either glucose log or glucose meter at each office visit. . Understanding of all instructions verbalized. Follow appointment is scheduled for 12 months CGMS was downloaded and reviewed with patient today Analysis of data: Dexcom Clarity avis sky Date of : 1970 Generated at: Aug 06, 2024 4:35 PM EST Reporting period: WedJul 24, 2024 - WedAug 06, 2024 Glucose Details Average glucose: 124 mg/dL GMI: 6.3% Standard deviation: 24 mg/dL Coefficient of Variation: 19.6% Time in Range Very High: 0% High: 3% In Range: 97% Low: 0% Very Low: 0% Target Range 70-180 mg/dL Sensor usage Days with data: 06/24 Time active: 86% Avg. calibrations per day: 0.0 Interpretation of data: Time in target not at goal. Assessment & Plan (02/11/2024 2:39 PM EDT): Diabetes is improving. A1c is 5.3 Diabetes glucose target is 80-120 pre meal and 140-180 post meal or A1c <7 Change lantus to 30 units once daily. Reduce metformin to 500mg once daily Continue other diabetes meds same. Continue plate method meal plan. Hypoglycemia prevention and treatment discussed. Call office if glucose drops below 70. Diabetes management goal is to test blood glucose at least 3 times daily or CGMS and bring either glucose log or glucose meter at each office visit. . Understanding of all instructions verbalized. Follow appointment is scheduled for 6 months Assessment & Plan (11/19/2023 10:17 AM EDT): Diabetes is improving. A1c is 5.4 Diabetes glucose target is 80-120 pre meal and 140-180 post meal or A1c <7 Decrease lantus to 25 units am and pm Continue other diabetes meds same. Continue plate method meal plan. Hypoglycemia prevention and treatment discussed. Call office if glucose drops below 70. Diabetes management goal is to test blood glucose at least 3 times daily or CGMS and bring either glucose log or glucose meter at each office visit. . Understanding of all instructions verbalized. Follow appointment is scheduled for 6 months Dexcom showing: Dexcom Clarity avis sky Date of : 1970 Generated at: November 19, 2023 10:11 AM EDT Reporting period: WedNov 06, 2023 - WedNovember 19, 2023 Glucose Details Average glucose: 133 mg/dL Standard deviation: 34 mg/dL GMI: 6.5% Time in Range Very High: <1% High: 9% In Range: 90% Low: <1% Very Low: 0% Target Range 70-180 mg/dL CGM Details Sensor usage: 93% Days with CGM data: Dexcom Clarity avis sky Date of : 1970 Generated at: November 18, 2023 9:43 AM EDT Reporting period: WedNov 05, 2023 - WedNovember 18, 2023 Glucose Details Average glucose: 134 mg/dL Standard deviation: 34 mg/dL GMI: 6.5% Time in Range Very High: <1% High: 10% In Range: 89% Low: <1% Very Low: 0% Target Range 70-180 mg/dL CGM Details Sensor usage: 93% Days with CGM data: Assessment & Plan (06/23/2023 9:39 AM EST): Diabetes not controlled with A1c of 6.5 but dexcom showing in target only 35% glycemic target goal is A1c <7 Change meds to: increase ozempic to 1 mg each week. Continue all other diabetes meds same. Diabetes management goal is to test blood glucose 3 times daily or CGMS and bring either glucose log or glucose meter at each office visit. Diabetes glucose target is 80-130 before meals and 140-180 after meals. Hypoglycemia prevention and treatment discussed. Call office if glucose drops below 70. Use diabetic plate method meal plan given at previous visit. Start exercise program as tolerated. Understanding of all instructions verbalized. Follow up appointment is scheduled in 3 months Dexcom showing: Dexcom Clarity avis sky Date of : 1970 Generated at: Jun 22, 2023 11:25 AM EST Reporting period: WedJun 09, 2023 - WedJun 22, 2023 Glucose Details Average glucose: 210 mg/dL Standard deviation: 57 mg/dL GMI: N/A Time in Range Very High: 26% High: 38% In Range: 36% Low: 0% Very Low: 0% Target Range 70-180 mg/dL CGM Details Sensor usage: 79% Days with CGM data: 05/25 Assessment & Plan (04/02/2023 7:08 PM EDT): No retinopathy both eyes (OU). Patient has had visual fluctuations related to prior diabetic instability. Stable today. Monitor yearly for stability. Assessment & Plan (03/24/2023 9:38 AM EDT): Diabetes is improving but not controlled. A1c is 6.1 but past 2 weeks GMI is 7.9 Diabetes glucose target is 80-120 pre meal and 140-180 post meal or A1c <7 Increase ozempic to .5mg each week. Continue other diabetes meds same. Continue plate method meal plan. Hypoglycemia prevention and treatment discussed. Call office if glucose drops below 70. Diabetes management goal is to test blood glucose at least 3 times daily or CGMS and bring either glucose log or glucose meter at each office visit. . Understanding of all instructions verbalized. Follow appointment is scheduled for 3 months. Dexcom showing: Dexcom Clarity avis asya Date of : 1970 Generated at: Mar 23, 2023 1:08 PM EDT Reporting period: WedMar 10, 2023 - WedMar 23, 2023 Glucose Details Average glucose: 190 mg/dL Standard deviation: 49 mg/dL GMI: 7.9% Time in Range Very High: 10% High: 43% In Range: 46% Low: <1% Very Low: 0% Target Range 70-180 mg/dL CGM Details Sensor usage: 100% Days with CGM data: Assessment & Plan (12/18/2022 11:23 AM EDT): Diabetes not controlled with A1c of 7.2 glycemic target goal is A1c <7 Change meds to: start jardiance 25mg daily. Trial ozempic .25mg each week. Sample given Lot# [id number] Exp Date 04/2024 # given 1 Sample education provided Continue all other diabetes meds same. Diabetes management goal is to test blood glucose 3 times daily or CGMS and bring either glucose log or glucose meter at each office visit. Diabetes glucose target is 80-130 before meals and 140-180 after meals. Hypoglycemia prevention and treatment discussed. Call office if glucose drops below 70. Use diabetic plate method meal plan given at previous visit. Start exercise program as tolerated. Understanding of all instructions verbalized. Follow up appointment is scheduled in 3 months dexcom showing: Dexcom Clarity avis ksy Date of : 1970 Generated at: Dec 17, 2022 10:55 AM EDT Reporting period: WedDecember 04, 2022 - WedDec 17, 2022 Glucose Details Average glucose: 215 mg/dL Standard deviation: 70 mg/dL GMI: N/A Time in Range Very High: 30% High: 35% In Range: 34% Low: <1% Very Low: <1% Target Range 70-180 mg/dL CGM Details Sensor usage: 79% Days with CGM data: 05/25 Assessment & Plan (09/11/2022 8:51 AM EST): E11.65 Diabetes is not controlled. A1c is 5.3 (pt has cirrhosis) Diabetes glucose target is 80-120 pre meal and 140-180 post meal or A1c <7 Decrease metformin to 1000mg at supper. She will consider omnipod pump therapy. To discuss at next visit Continue other diabetes meds same. Continue plate method meal plan. Hypoglycemia prevention and treatment discussed. Call office if glucose drops below 70. Diabetes management goal is to test blood glucose at least 4 times daily or CGMS and bring either glucose log or glucose meter at each office visit. . Understanding of all instructions verbalized. Follow appointment is scheduled for 3 months Dexcom showing: Dexcom Clarity avis sky Date of : 1970 Generated at: Sep 11, 2022 8:33 AM EST Reporting period: Sat Aug 29, 2022 - WedSep 11, 2022 Glucose Details Average glucose: 175 mg/dL Standard deviation: 48 mg/dL GMI: 7.5% Time in Range Very High: 6% High: 36% In Range: 58% Low: 0% Very Low: 0% Target Range 70-180 mg/dL CGM Details Sensor usage: 93% Days with CGM data: Keratoconjunctivitis sicca o f both eyes not specified as Sjogren's 08/28/2022 Assessment & Plan (08/28/2022 4:18 PM EST): Patient has symptomatic aqueous deficient dry eye and meibomian gland dysfunction and HAS FAILED TOPICAL OTC THERAPY. NEEDS FURTHER INTERVENTION WITH XIIDRA RESTASIS HAS BEEN DENIED BY INSURANCE. Rx Xiidra BID both eyes (OU). Monitor 3 months for improvement. Diplopia 08/28/2022 Assessment & Plan (04/02/2023 7:09 PM EDT): Largely improved since better diabetic stability achieved. Mild-moderate intermittent exo. Consider component of hepatic encephalopathy. Assessment & Plan (08/28/2022 4:19 PM EST): See a/p1. Obesity (BMI 35.0-39.9 without comorbidity) 07/12 Severe obesity (BMI 35.0-35.9 with comorbidity) 07/23/2022 Volume overload 07/23/2022 GOOD (nonalcoholic steatohepatitis) 07/23/2022 Anasarca 07/23/2022 Hepatic encephalopathy 06/19/2022 Assessment & Plan (06/19/2022 1:09 PM EST): See a/p1. Cirrhosis of liver with ascites 06/19/2022 Assessment & Plan (08/28/2022 4:19 PM EST): See a/p1. Assessment & Plan (06/19/2022 1:09 PM EST): See a/p1. Rotator cuff tendinitis, right 02/03/2022 Other subjective visual disturbances 01/16/2022 Assessment & Plan (04/02/2023 7:11 PM EDT): Patient stable clinically although ammonia has been elevated lately. GI increased meds and plans to see her this upcoming month. Visual disturbances have subsided since establishing care with [facility]. Patient does state she is told she does often speak to people who are not there, and she is unaware that she is doing it. Likely attributed to hepatic encephalopathy. Ascites managed with GI. Monitor yearly for stability unless patient notes return of visual symptoms. Assessment & Plan (11/27/2022 9:24 PM EDT): Established, improving Non-alcoholic liver cirrhosis causing sporadically elevated ammonia levels and visual disturbances secondary to hepatic encephalopathy. Prior imaging negative with elevated ammonia levels corresponding to timing of visual episodes. Frequency and severity improved since establishing care with [facility]. Good compliance with Xifaxin. Patient has a comitant exophoria that is stable. Diplopia symptoms has lessened. 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 Will consider prismatic Rx pending refractive stability. Xiidra has improved dry eye symptoms and signs. Continue BID. Patient has had glucosuria and variable glucose and HbA1c that may contribute to refractive fluctuations. Patient had significant difficulty with refraction today and non-organic functional vision loss was attributable. With significant efforts and technique, patient was convinced to read 20/25 on the chart. Monitor 3 months for stability and consider Rx update pending visual disturbance and non-organic functional vision loss. Assessment & Plan (08/28/2022 3:22 PM EST): Non-hepatic liver cirrhosis. Uses Xifaxan amongst other meds. Was off Xifaxan due to not being able to renew script and experienced visual phenomenon nonexplainable with ocular exam or typical migraines with aura. Elevated ammonia as observed at time of diagnosis and ammonia appears elevated in periods of exacerbations and increased visual symptoms. Likely hepatic encephalopathy. Has had horizontal diplopia intermittently for past 1-2 months. Today deviation is comitant with greater exo in superior gaze. Also greater at near. Patient is back with regular visits with [facility] and is doing better since hospitalization regarding CHF and ascites. Symptoms have improved and she is stable. Monitor 3 months. Rx released. Consider prism for decompensated phoria if problem is persistent despite stability. Assessment & Plan (06/19/2022 1:09 PM EST): Patient educated on findings. Recent MRI is [...] experienced similar symptoms and her GI in [place] started her on Xifaxan, which reportedly resolved the symptoms, despite a recurrence in October 2021. Her symptoms today have since significantly resolved, per patient. She states she has had no lapses in taking her medication during these periods, although today she is out of the medication and her GI in [place] has discharged her from the practice due to no-show visits. Dr. Rolon in [place] was called to see if he will Rx the medication. Referral to [facility] was made. Patient also has ocular surface dryness throwing off her visual acuity stability. Rx Restasis BID and OTC AT tears QID with warm compresses BID. F/u in early July for refraction/dry eye f/u and suspected hepatic encephalitis labs. Sees [facility] in August. Ammonia, CBC, CMP, INR ordered today. Patient educated on all findings and states understanding of management. Assessment & Plan (04/27/2022 10:54 AM EDT): Hx of other subjective visual disturbances, patient has been talking to people that are not there, intermittent patterns in vision that may last few minutes to longer, ocular exams do not display disease process that would explain symptoms, MRI of brain from July is unremarkable. Prior visual field was unreliable in both eyes, most recent visual field is unreliable in left eye but does show new and severe depression of superior temporal left eye quadrant only. Consider retinal pathology or disease process anterior to left aspect of optic chiasm if defect is real. Order orbital MRI w/ and w/o contrast. Attempt repeat of visual field again. Referral with neurology is end of 2021 to consider migraine or other, referral with neuro- ophthalmology isn't until 2022. Follow up here is 05/15/2022. Assessment & Plan (01/16/2022 12:58 PM EDT): Visual disturbance. Ocular exam is unremarkable with dilation, entrance tests (pupils, color vision, etc.), and OCT scans of retina and nerves. Prior visual field is poorly reliable and shows non-specific depressions. Will repeat visual field and refer to neurology and [facility] before concluding ocular migraine or associated with her extensive medication list. MRI from July was unremarkable. 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 Repeat 24-2 visual field (VF), monitor 3 months. Refer to neurology and neuro-ophthalmology. Patient knows to RTC/ER should she note decline in vision/comfort or worsening of condition. Problem of nerve network of low back and pelvis 11/12/2021 High cholesterol 11/12/2021 GERD (gastroesophageal reflux disease) 2 Resolved Problems Problem Noted Date Diagnosed Date Resolved Date Diabetes 11/12/2021 09/10/2022 Encounters Date Type Department Care Team Description 01/02/2025 Telephone [facility] [address] [place] [phone] WinsomeMelecioJanice 12/15/2024 10:33 AM EDT Anesthesia Event [facility] [address] [place] [phone] Constantino Arias MD 12/15/2024 9:49 AM EDT - 12/15/2024 11:59 PM EDT Hospital Encounter [facility] [address] [place] [address] Mc Grant DO GAVE (gastric antral vascular ectasia) Discharge Disposition: Home or Self Care 12/15/2024 Travel 12/14/2024 12:20 PM EDT - 12/14/2024 11:59 PM EDT Hospital Encounter [facility] [address], [address] [place] [phone] Discharge Disposition: Home or Self Care 12/14/2024 Travel 12/14/2024 Telephone [facility]Y [facility] [address] [place] [address] Edna Recinos 12/12/2024 2:15 PM EDT Office Visit [facility] [address] [place] [address] Janice Woodward NP Well woman exam with routine gynecological exam (Primary Dx); Encounter for screening mammogram for malignant neoplasm of breast 12/12/2024 Travel 11/28/2024 1:45 PM EDT Office Visit [facility] [address] [place] [address] Lucy Christopher DO Thrombocytopenia (Primary Dx); GOOD (nonalcoholic steatohepatitis); Cirrhosis of liver with ascites, unspecified hepatic cirrhosis type; Zinc deficiency; Copper deficiency 11/28/2024 Community Orders [facility] [address] [place] [address] Laquita Corral PA Well woman exam with routine gynecological exam (Primary Dx) 11/27/2024 9:00 AM EDT Office Visit [facility]ODI[facility]RY [facility] [address], [address] [place] [phone] Alexandr Zarate, OLLIE Diabetic polyneuropathy associated with type 2 diabetes mellitus; Achilles tendinitis of left lower extremity; Bilateral calcaneal spurs; Pain in both feet 11/27/2024 Travel 11/23/2024 Community Orders [facility] [address] [place] [address] Laquita Corral PA Excessive daytime sleepiness (Primary Dx) 11/20/2024 10:30 AM EDT Office Visit [facility]UR[facility] [address] [place] [address] Ben Knox MD Syncope, unspecified syncope type (Primary Dx); Vision disturbance; Acephalgic migraine; 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; Restless leg syndrome; Mild cognitive impairment; Cervical disc disorder 11/20/2024 Travel 11/17/2024 Orders Only [facility] [address], [address] [place] [address] Mary Rucker NP Monoclonal gammopathy (Primary Dx) 11/16/2024 Orders Only [facility] [address] [place] [address] Bharti Boogie GAVE (gastric antral vascular ectasia) 11/15/2024 1:44 PM EDT - 11/15/2024 11:59 PM EDT Hospital Encounter [facility] ULTR[facility] [address], [address] [place] [phone] PAD (peripheral artery disease) Discharge Disposition: Home or Self Care 11/15/2024 1:27 PM EDT - 11/15/2024 1:43 PM EDT Hospital Encounter [facility] [address], [address] [place] [phone] Psoriatic arthritis Discharge Disposition: Home or Self Care 11/15/2024 1:00 PM EDT - 11/15/2024 1:26 PM EDT Hospital Encounter [facility] [address], [address] [place] [phone] Discharge Disposition: Home or Self Care 11/15/2024 11:30 AM EDT Clinical Support [facility] [address] [place] [address] Psoriatic arthritis 11/15/2024 10:00 AM EDT Office Visit [facility]OENTEROLOGY [facility]ACT[facility] [address] [place] [address] Mc Grant DO Cirrhosis of liver with ascites, unspecified hepatic cirrhosis type (Primary Dx); GAVE (gastric antral vascular ectasia); Encephalopathy, hepatic; Iron deficiency anemia, unspecified iron deficiency anemia type 11/15/2024 Orders Only [facility] NEUROLOGY PRACTICE [address] [address] Ben Knox MD PAD (peripheral artery disease) (Primary Dx) 11/15/2024 Travel 11/13/2024 3:00 PM EDT Office Visit [facility] RHEUMATOLOGY PRACTICE [address] [place] [address] Suman Treviño MD Psoriatic arthritis (Primary Dx); Psoriasis; Paroxysmal atrial fibrillation; Hepatic encephalopathy 11/13/2024 Travel 11/08/2024 Travel 11/06/2024 Travel 10/31/2024 3:08 PM EDT - 10/31/2024 11:59 PM EDT Hospital Encounter [facility] CARDIAC DIAGNOSTIC [address] 1st [place] [address] Essential hypertension; Hyperlipidemia, unspecified hyperlipidemia type; Hepatic encephalopathy; Cirrhosis of liver with ascites, unspecified hepatic cirrhosis type; GOOD (nonalcoholic steatohepatitis); Type 2 diabetes mellitus with hyperglycemia, with long-term current use of insulin Discharge Disposition: Home or Self Care 10/31/2024 Travel 10/26/2024 1:21 PM EDT - 10/26/2024 11:59 PM EDT Hospital Encounter [facility] DIAGNOSTIC CENTER - GENERAL DIAGNOSTIC BLDG D [address] [place] [id number] Arthralgia of left foot Discharge Disposition: Home or Self Care 10/26/2024 Travel 10/26/2024 Community Orders [facility] [address] [place] [address] Laquita Corral PA Arthralgia of left foot (Primary Dx); Left foot pain 10/24/2024 12:56 PM EDT - 10/24/2024 11:59 PM EDT Hospital Encounter [facility] ULTRASOUND [address] 2nd [place] [address] Discharge Disposition: Home or Self Care 10/24/2024 12:56 PM EDT - 10/24/2024 11:59 PM EDT Hospital Encounter [facility] [address] 2nd [place] [address] Discharge Disposition: Home or Self Care 10/23/2024 Travel 10/19/2024 Orders Only [facility] ENDOCRINOLOGY PRACTICE [address], 8th [place] [address] Lesly Agarwal Type 2 diabetes mellitus with hyperglycemia, with long-term current use of insulin 10/17/2024 4:45 PM EDT Clinical Support [facility] OUTPATIENT LABORATORY [address] 11[address] Floor Clinic [place] [phone] Thrombocytopenia 10/17/2024 3:00 PM EDT Office Visit [facility] ONCOLOGY PRACTICE [address] [place] [address] Lucy Christopher DO Thrombocytopenia (Primary Dx); Other cirrhosis of liver; GOOD (nonalcoholic steatohepatitis) 10/17/2024 Travel 10/15/2024 Travel from Last 3 Months Family History Medical History Relation Name Comments Cancer Brother h/o bladder can cer Diabetes Brother Coronary artery disease Father cabg Cancer Mother non-hodgkins ly mphoma - cause of Heart disease Neg Hx Hyperlipidemia Neg Hx Hypertension Neg Hx Stroke Neg Hx Relation Name Status Comments Brother Father Mother Social History Tobacco Use Types Packs/Day Years [...] week 07/24/2022 How often do you attend [facility] or catholic services? More than 4 times per year 07/24/2022 Do you belong to any clubs o r organizations such as [employer] groups, unions, fraternal or athletic groups, or [...] Recorded Patient Health Questionnaire-2 Score 0 09/28/2023 [facility] - Occupational [...] place to sleep or slept in a senior living (including now)? No 07/24/2022 Comments No Sex and Gender Information Value Date Recorded Sex Assigned at Female 09/17/2021 11:23 AM EST Legal Sex Female 11:23 AM EST Gender Identity Female 09/17/2021 11:23 AM EST Sexual Orientation Straight 09/17/2021 11 :23 AM EST Last Filed Vital Signs Vital Sign Reading [...] Mass Index 26.07 12/15/2024 10:03 AM EDT Plan of Treatment Upcoming Encounters Date Type Department Care Team (Late st Contact Info) Description 01/22/2025 12:00 PM EDT Office Visit [facility] NEUROLOGY PRACTICE [address] [place] [address] Ben Knox MD [facility] [address] [facility] [place] [address] 01/22/2025 2:00 PM EDT Office Visit [facility] RHEUMATOLOGY PRACTICE [address] [place] [address] Suman Treviño MD [facility] [address] [facility] [place] [address] 01/24/2025 1:00 PM EDT Office Visit [facility] SLEEP LAB PRACTICE [address] [place] [phone] Dmeario Silva DO [address] [place] [address] 02/15/2025 1:20 PM EDT Appointment [facility] MAMMOGRAPHY SERVICES [address] [place] [address] 02/27/2025 1:00 PM EDT Office Visit [facility] ORTHOPEDIC PODIATRY PRACTICE [address], 6th [place] [address] Alexandr Zarate DPM [address] [facility] [place] [phone] 02/28/2025 1:45 PM EDT Office Visit [facility] [address], 10th [place] [address] Lucy Christopher DO [address] [facility] [place] [phone] 03/19/2025 1:15 PM EDT Office Visit [facility] GASTROENTEROLOGY PRACTICE [address], 2nd [place] [address] 08/16/2025 10:00 AM EST Office Visit [facility] ENDOCRINOLOGY [facility] [address] [place] [address] Brigitte Mahoney NP [address] [facility] [place] [address] 12/13/2025 11:00 AM EDT Office Visit [facility] OBGYN PRACTICE [address], 7[address] [place] [address] Janice Woodward NP [address] [place] [phone] Health Maintenance Due Date Last Done Comments CT Colonography 1969 ColoGuard Screening 1969 FIT-DNA 1969 FIT 1970 FOBT 1970 Sigmoidoscopy 1970 MMR Vaccines (1 of 1 - Standard series) 1970 DTaP/Tdap/Td Vaccines (1 - Tdap) 1988 Pneumococcal Vaccine (1 of 2 - PCV) 1988 Diabetes: Hemoglobin A1C 09/01/202406/01/ 024, 02/11/2024, 03/16/2023, Additional history exists Mammogram 02/14/2025 02/15/2024, 08/0 12/2023, 04/16/2015 Influenza Vaccine (Season Ended) 2025 04/08/2023, 05/21/2022 Diabetes: Retinopathy Screening 04/02/2025 04/02/2023, 04/02/2023, 04/02/2023, Additional history exists Colonoscopy 07/31/2032 07/31/2022, 12/0 02/2020, 06/18/2020 Colorectal Cancer Screening 07/31/2032 RSV under 20 month Aged Out No longer eligible based on patient's age to complete this topic Procedures Procedure Name Priority Date/Time Associated Diagnosis Comments EGD Routine 12/15/2024 10:49 AM EDT GAVE (gastric antral vascular ectasia) PAP SMEAR Routine 12/12/2024 2:49 PM EDT Well woman exam with routine gynecological exam US ARTERIAL DOPPLER ROD LOWER EXTR Routine 11/15/2024 2:30 PM EDT PAD (peripheral artery disease) US VENOUS LE BILAT DOPPLER Routine 11/15/2024 2:30 PM EDT Peripheral vascular disease XR SACROILIAC JOINTS 3+ VIEWS Routine 11/15/2024 1:45 PM EDT Psoriatic arthritis XR FOOT 1-2 VIEWS BILATERAL Routine 11/15/2024 1:45 PM EDT Psoriatic arthritis XR HAND 1-2 VIEWS BILATERAL Routine 11/15/2024 1:45 PM EDT Psoriatic arthritis METHYLMALONIC ACID, SERUM Routine 11/15/2024 11:31 AM EDT 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 PROTEIN ELECTROPHORESIS, SERUM Routine 11/15/2024 11:31 AM EDT 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 T3, TOTAL Routine 11/15/2024 11:31 AM EDT 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 T4, FREE Routine 11/15/2024 11:31 AM EDT 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 TSH Routine 11/15/2024 11:31 AM EDT Weakness VITAMIN B1 Routine 11/15/2024 11:31 AM EDT Vitamin B deficiency VITAMIN B12 Routine 11/15/2024 11:31 AM EDT Vitamin B12 deficiency VITAMIN B6 Routine 11/15/2024 11:31 AM EDT Vitamin B deficiency VITAMIN D, TOTAL Routine 11/15/2024 11:3 1 AM EDT Vitamin D deficiency IMMUNOFIXATION ELECTROPHORESIS Routine 11/15/2024 11:31 AM EDT 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 FREE K+L LIGHT CHAINS PLUS RATIO, SERUM Routine 11/15/2024 11:31 AM EDT 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 LYME, TOTAL ANTIBODY WITH REFLEX Routine 11/15/2024 11:31 AM EDT Mild cognitive impairment C4 COMPLEMENT Routine 11/15/2024 11:31 AM EDT Mild cognitive impairment C3 COMPLEMENT Routine 11/15/2024 11:31 AM EDT Mild cognitive impairment ANTINUCLEAR ANTIBODIES, REFLEX TO TITER AND PATTERN Routine 11/15/2024 11:31 AM EDT Mild cognitive impairment ANCA PANEL Routine 11/15/2024 11:31 AM EDT Mild cognitive impairment ALDOLASE Routine 11/15/2024 11:31 AM EDT Mild cognitive impairment COMPREHENSIVE METABOLIC PANEL Routine 11/15/2024 11:31 AM EDT Mild cognitive impairment CBC WITH AUTO DIFFERENTIAL Routine 11/15/2024 11:31 AM EDT Mild cognitive impairment C3 COMPLEMENT Routine 11/15/2024 11:29 AM EDT Psoriatic arthritis C4 COMPLEMENT Routine 11/15/2024 11:29 AM EDT Psoriatic arthritis CK Routine 11/15/2024 11:29 AM EDT Psoriatic arthritis ANTINUCLEAR ANTIBODIES, REFLEX TO TITER AND PATTERN Routine 11/15/2024 11:29 AM EDT Psoriatic arthritis ANTI-CAROLE 1 ANTIBODY, IGG Routine 11/15/2024 11:29 AM EDT Psoriatic arthritis SJOGREN'S ANTIBODIES (SSA/SSB) Routine 11/15/2024 11:29 AM EDT Psoriatic arthritis ANTI-CASTELLON ANTIBODY Routine 11/15/2024 1 1:29 AM EDT Psoriatic arthritis DSDNA ANTIBODY BY IFA, CRITHICECYA LUCILIAE Routine 11/15/2024 11:29 AM EDT Psoriatic arthritis ANTI-CCP ANTIBODIES, IGG & IGA, CRISTAL Routine 11/15/2024 11:29 AM EDT Psoriatic arthritis TRANSTHORACIC ECHO (TTE) COMPLETE Routine 10/31/2024 4:08 PM EDT Essential hypertension Hyperlipidemia, unspecified hyperlipidemia type Hepatic encephalopathy Cirrhosis of liver with ascites, unspecified hepatic cirrhosis type GOOD (nonalcoholic steatohepatitis) Type 2 diabetes mellitus with hyperglycemia, with long-term current use of insulin CBC Routine 10/26/2024 1:37 PM EDT Arthralgia of left foot URIC ACID Routine 10/26/2024 1:37 PM EDT Arthralgia of left foot MR BRAIN W AND WO CONTRAST Routine 10/24/2024 4:14 PM EDT Syncope, unspecified syncope type Vision disturbance Acephalgic migraine Mild cognitive impairment US CAROTID DOPPLER BILATERAL Routine 10/24/2024 1:33 PM EDT Syncope, unspecified syncope type SLIDE SENT TO PATHOLOGY Routine 10/17/2024 4:38 PM EDT Thrombocytopenia PATHOLOGY REVIEW Routine 10/17/2024 4:38 PM EDT Thrombocytopenia PATHOLOGY REVIEW PANEL Routine 4:38 PM EDT Thrombocytopenia ZINC Routine 10/17/2024 4:38 PM EDT Thrombocytopenia COPPER, SERUM Routine 10/17/2024 4:38 PM EDT Thrombocytopenia HAPTOGLOBIN Routine 10/17/2024 4:38 PM EDT Thrombocytopenia FOLATE Routine 10/17/2024 4:38 PM EDT Thrombocytopenia VITAMIN B12 Routine 10/17/2024 4:38 PM EDT Thrombocytopenia RETICULOCYTES Routine 10/17/2024 4:38 PM EDT Thrombocytopenia LACTATE DEHYDROGENASE Routine 10/17/2024 4:38 PM EDT Thrombocytopenia TRANSFERRIN SATURATION Routine 4:38 PM EDT Thrombocytopenia TOTAL IRON BINDING CAPACITY Routine 10/17/2024 4:38 PM EDT Thrombocytopenia IRON Routine 10/17/2024 4:38 PM EDT Thrombocytopenia FERRITIN Routine 10/17/2024 4:38 PM EDT Thrombocytopenia COMPREHENSIVE METABOLIC PANEL Routine 10/17/2024 4:38 PM EDT Thrombocytopenia CBC WITH AUTO DIFFERENTIAL Routine 10/17/2024 4:38 PM EDT Thrombocytopenia HEMOGLOBIN A1C Routine 06/01/2024 1:29 PM EST Type 2 diabetes mellitus without complications Other fatigue GOOD (nonalcoholic steatohepatitis) BI MAMMOGRAM SCREENING BILATERAL Routine 02/15/2024 9:38 AM EDT Encounter for screening mammogram for malignant neoplasm of breast COLONOSCOPY Routine 07/31/2022 7:53 AM EST Iron deficiency anemia, unspecified iron deficiency anemia type Other cirrhosis of liver from Last 3 Months or Most Recently Relevant to Health Maintenance Results * EGD (12/15/2024 10:49 AM EDT) [...] Narrative 12/15/2024 10:50 AM EDT Patient Name: Avis Sky Attending MD: Mc Grant DO Scope(s) used: [...] by the physician, the nurse and the skip pit worker. The procedure was verified in the pre-procedure [...] 3 months. Procedure Code(s): --- Professional --- 55289, Esophagogastroduodenoscopy, flexible, transoral; with control of bleeding, any method --- Technical --- 26003, Esophagogastroduodenoscopy, flexible, transoral; with control of bleeding, any method Diagnosis Code(s): --- Professional --- K22.2, Esophageal obstruction K44.9, Diaphragmatic hernia without obstruction or gangrene K31.819, Angiodysplasia of stomach and duodenum without bleeding --- Technical --- K22.2, Esophageal obstruction K44.9, Diaphragmatic hernia without obstruction or gangrene K31.819, Angiodysplasia of stomach and duodenum without bleeding CPT copyright 2020 [employer]. All rights reserved. The codes documented in this report are preliminary and upon automobile brakes bonder review may be revised to meet current compliance requirements. DO Mc Ceja Jr., DO 12/15/2024 10:50:45 AM This report has been signed electronically. Number of Addenda: 0 Note Initiated On: 12/15/2024 10:31 AM Scope In: Scope Out: Procedure Note Mc Grant DO - 12/15/2024 Patient Name: Avis Asya Attending MD: Mc Grant DO Scope(s) used: [...] procedure by the physician,the nurse and the skip pit worker. The procedure wasverified in the pre-procedure area. [...] 3 months. Procedure Code(s): --- Professional --- 73618, Esophagogastroduodenoscopy, flexible, transoral; with control of bleeding, any method --- Technical --- 67621, Esophagogastroduodenoscopy, flexible, transoral; with control of bleeding, any method Diagnosis Code(s): --- Professional --- K22.2, Esophageal obstruction K44.9, Diaphragmatic hernia without obstruction or gangrene K31.819, Angiodysplasia of stomach and duodenum without bleeding --- Technical --- K22.2, Esophageal obstruction K44.9, Diaphragmatic hernia without obstruction or gangrene K31.819, Angiodysplasia of stomach and duodenum without bleeding CPT copyright 2020 [employer]. All rights reserved. The codes documented in this report are preliminary and upon automobile brakes bonder reviewmay be revised to meet current compliance [...] ENDOSCOPY PROCEDURE ORDER J LUIS Final Result * Pap Smear (12/12/2024 2:49 PM EDT) Pathologist [facility] Pathology [facility] Cytology Laboratories [facility] Laboratories [address] [place] [address] or [phone] Kp Dillon M.D., Blanket Maker PATIENT NAME LABORATORY NO. AVIS DAUGHERTY. [id number] AGE SEX SSN CLIENT REF # [facility] 54 1970 F [id number] [facility] BY-PASS REQUESTING Lalo ATTENDING MTrinh. COPY TO. [facility], [facility] [place] [address] DATE COLLECTED DATE RECEIVED DATE REPORTED 12/12/2024 12/13/2024 12/14/2024 ThinPrep Pap with [employer] [facility] DIAGNOSIS: Negative for intraepithelial lesion or [...] 51, 52, 56, 58, 59, 66, 68 ETHYLBENZENE OXIDIZER: YESICA ROSALES (ASCP) CPT CODES: 31416, 64143 12/14/2024 1:33 PM EDT PATHOLOGY & CYTOLOGY LABORATORIES Swab Vaginal structure / Unknown Non-blood Collection / Unknown 12/12/2024 2:49 PM EDT 12/13/2024 8:15 AM EDT Janice Woodward NP LAB CYTOLOGY ORDERABLES Final Result Performing Organization Address City/State/[facility] Co de Phone Number PATHOLOGY & CYTOLOGY LABORATORIES [address] [place] [address], * US arterial doppler bilateral lower ext [...] Dsouza MD 11/15/2024 02:41 PM EDT RPWorkstation: [id number] us Ben Knox MD IMG US PROCEDURES Final Result * US venous LE bilateral doppler (11/15/2024 2:30 PM EDT) BSA 1.89 m2 [facility] RADIOLOGY SYSTEM Anatomical Region Laterality Modality Lower [...] Dsouza MD 11/15/2024 02:42 PM EDT RPWorkstation: [id number] Mary Cobos NP IMG US PROCEDURES Fi nal Result * XR foot 1 or 2 [...] Dsouza MD 11/16/2024 01:00 PM EDT RPWorkstation: [id number] Suman Treviño MD IMG XR PROCEDURES Final [...] Dsouza MD 11/16/2024 12:59 PM EDT RPWorkstation: [id number] Suman Trevñio MD IM XR PROCEDURES Final Result * XR sacroiliac joints 3+ views (11/15/2024 1:45 PM EDT) Anatomical Region Laterality Modality Sacroiliac joint, Pelvis Digital Radiography 11/15/2024 1:45 PM EDT Impressions 11/16/2024 12:58 PM EDT Negative sacroiliac joints. Electronically signed by: Alexsander Dsouza MD 11/16/2024 12:58 PM EDT RP [facility] 11/16/2024 12:58 PM EDT PROCEDURE: XR SACROILIAC [...] Dsouza MD 11/16/2024 12:58 PM EDT RPWorkstation: [id number] us Suman Treviño MD IM XR PROCEDURES Final Result * (ABNORMAL) Free K+L Light Chains Plus Ratio, Serum (11/15/2024 11:31 AM EDT) Free [place] Light Chains 44.1(H) 3.3 - 19.4 mg/L 11/16/2024 7:07 PM EDT [facility] Free Lambda Light Chains 31.1(H) 5.7 - 26.3 mg/L 11/16/2024 7:07 PM EDT [facility] [place]/Lambda Ratio, Serum 1.42 0.26 - 1.65 11/16/2024 7:07 PM EDT [facility] Blood Venous blood specimen / Unknown Venipuncture / Unknown 11/15/2024 11:31 AM EDT 11/15/2024 12:03 PM EDT [facility] [employer]) - 11/16/2024 7:07 PM EDT Performed at: - [address] [id number] [employer] Band Director: Raphael Edwards PhD, Phone: [phone] Mary Cobos LEVEL VIAL GRINDER LAB BLOOD ORDERABLES Final Result [facility] [place]) [address] [place] [address], * Lyme, Total Antibody with Reflex (11/15/2024 11:31 AM EDT) Pathologist [facility] Lyme Total Antibody Negative Negative 11/16/2024 2:07 PM EDT [facility] ([place]) Comment: Lyme antibodies not detected. Reflex testing is not indicated. No laboratory evidence of infection with B. burgdorferi (Lyme disease). Negative results may occur in patients recently infected (less than or equal to 14 days) with B. burgdorferi. If recent infection is suspected, repeat testing on a new sample collected in 7 to 14 days is recommended. Blood Venous blood specimen / Unknown Venipuncture / Unknown 11/15/2024 11:31 AM EDT 11/15/2024 12:03 PM EDT [facility] ([place]) - 11/16/2024 2:07 PM EDT Performed at: - [facility] [address] [place], [place] [id number] [employer] Director: Raphael Edwards PhD, Phone: [phone] Mary Cobos NP LAB BLOOD ORDERABLES Final Result Performing Organization Address City/[facility]/ZIP Co de Phone Number [facility] [address] [place] [address], * Antinuclear Abs, IFA (11/15/2024 11:31 AM EDT) Only the most recent of2 resultswithin the time period is included. Antinuclear Abs, IFA Negative 11/18/2024 10:07 AM EDT [facility]) Comment: Negative <1:80 Borderline 1:80 Positive >1:80 ICAP nomenclature: AC-0 For more information about Hep-2 cell patterns use ANApatterns.org, the official website for the International Consensus on Antinuclear Antibody (JEANNIE) Patterns (ICAP). Blood Venous blood specimen / Unknown Venipuncture / Unknown 11/15/2024 11:31 AM EDT 11/15/2024 12:[address] [facility] [place]) - 11/18/2024 10:07 AM EDT Performed at: Lab[address] [id number] [employer] Director: Raphael Edwards PhD, Phone: [phone] Mary Cobos NP LAB BLOOD ORDERABLES Final Result Performing Organization Address City/[facility]/ZIP Co de Phone Number [facility]) [address] [place] [address], [place] [phone] * (ABNORMAL) CBC auto differential (11/15/2024 11:31 AM EDT) Only the most recent of2 resultswithin the time period is included. Auto WBC 5.4 3.8 - 11.0 10*3/uL 11/15/2024 12:24 PM [facility] RBC 4.14 3.73 - 5.13 10*6/uL 11/15/2024 12:24 PM [facility] Hemoglobin 13.9 11.2 - 15.3 g/dL 11/15/2024 12:24 PM [facility] Hematocrit 40.6 32.6 - 44.6 % 11/15/2024 12:24 PM [facility] MCV 98.0(H) 78.8 - 96.0 fL 11/15/2024 12:24 PM [facility] MCH 33.6(H) 26.2 - 33.0 pg 11/15/2024 12:24 PM [facility] MCHC 34.3 32.7 - 35.1 g/dL 11/15/2024 12:24 PM [facility] RDW 13.5 12.1 - 16.1 % 11/15/2024 12:24 PM [facility] MPV 8.5 7.0 - 10.6 fL 11/15/2024 12:24 PM [facility] Neutrophils % 66 47 - 79 % 11/15/2024 12:24 PM [facility] Lymphocytes % 22 13 - 41 % 11/15/2024 12:24 PM [facility] Monocytes % 5 3 - 11 % 11/15/2024 12:24 PM [facility] Eosinophils % 7(H) 0 - 6 % 11/15/2024 12:24 PM [facility] Basophils % 0 0 - 2 % 11/15/2024 12:24 PM [facility] Neutrophils Absolute 3.50 1.90 - 7.50 10*3/uL 11/15/2024 12:24 PM [facility] Lymphocytes Absolute 1.20 0.80 - 3.20 10*3/uL 11/15/2024 12:24 PM [facility] Monocytes Absolute 0.30 0.10 - 0.90 10*3/uL 11/15/2024 12:24 PM [facility] Eosinophils Absolute 0.40 0.00 - 0.40 10*3/uL 11/15/2024 12:24 PM EDT [facility] Basophils Absolute 0.00 0.00 - 0.20 10*3/uL 11/15/2024 12:24 PM EDT [facility] Platelets 92(L) 138 - 402 10*3/uL 11/15/2024 12:24 PM EDT [facility] Blood Venous blood specimen / Unknown Venipuncture / Unknown 11/15/2024 11:31 AM EDT 11/15/2024 12:02 PM EDT us Mary Cobos NP LAB BLOOD ORDERABLES Final Result Performing Organization Address City/[facility]/ZIP Co de Phone Number [facility] [address] [place] [address], * Methylmalonic acid, serum (11/15/2024 11:31 AM EDT) Methylmalonic Acid 211 0 - 378 nmol/L 11/20/2024 4:07 PM EDT [facility] ([place]) Blood Venous blood specimen / Unknown Venipuncture / Unknown 11/15/2024 11:31 AM EDT 11/15/2024 12:03 PM EDT Narrative [facility] ([place]) - 11/20/2024 4:07 PM EDT Test(s) 978706-[id number] Acid, Serum was developed and its performance characteristics determined by [facility]. It has not been cleared or approved by the Food and Drug Administration. Performed at: 01 - [facility] [id number] [employer] Band Director: Denise Cordoba MD, Phone: [phone] us Mary Cobos NP LAB BLOOD ORDERABLES Final Result [facility] ([facility]) [address] [place] [address], * Aldolase (11/15/2024 11:31 AM EDT) Aldolase 7.7 3.3 - 10.3 U/L 11/16/2024 4:08 PM EDT [facility] ([place]) Blood Venous blood specimen / Unknown Venipuncture / Unknown 11/15/2024 11:31 AM EDT 11/15/2024 12:03 PM EDT Narrative [facility] ([place]) - 11/16/2024 4:08 PM EDT Performed at: 01 - [address] [id number] [employer] Band Director: Raphael Edwards PhD, Phone: [phone] Mary Cobos LEVEL VIAL GRINDER LAB BLOOD ORDERABLES Final Result [facility]) [address] [place] [address], [place] [phone] * Vitamin D 25 hydroxy (11/15/2024 11:31 AM EDT) Vitamin D, Total 65 30 - 100 ng/mL 11/15/2024 1:04 PM EDT [facility] Blood Venous blood specimen / Unknown Venipuncture / Unknown 11/15/2024 11:31 AM EDT 11/15/2024 12:03 PM EDT [facility] LABORATORY - 11/15/2024 1:04 PM EDT Please note possible changes in reference range and units reported due to change in methodology. Mary Cobos LEVEL VIAL GRINDER LAB BLOOD ORDERABLES Final Result [facility] [address] [place] [address], [place] [phone] * ANCA panel (11/15/2024 11:31 AM EDT) MPO ABS <0.2 0.0 - 0.9 units 11/17/2024 8:07 PM EDT [facility] ([facility]) ANTI PR3 ANTIBODIES <0.2 0.0 - 0.9 units 11/17/2024 8:07 PM EDT [facility] ([facility]) C-ANCA <1:20 Neg:<1:20 titer 11/17/2024 8:07 PM EDT [facility] ([facility]) P-ANCA <1:20 Neg:<1:20 titer 11/17/2024 8:07 PM EDT [facility] ([facility]) Comment: The presence of positive fluorescence exhibiting P-ANCA or C-ANCA patterns alone is not specific for the diagnosis of Serafin's Granulomatosis (WG) or microscopic polyangiitis. Decisions about treatment should not be based solely on ANCA IFA results. The [employer] Consensus recommends follow up testing of positive sera with both VA-3 and MPO-ANCA enzyme immunoassays. As many as 5% serum samples are positive only by EIA. Ref. AM J Clin Pathol 1999;111:507-513. Atypical pANCA <1:20 Neg:<1:20 titer 11/17/2024 8:07 PM EDT [facility] ([facility]) Comment: The atypical pANCA pattern has been observed in a significant percentage of patients with ulcerative colitis, primary sclerosing cholangitis and autoimmune hepatitis. Blood Venous blood specimen / Unknown Venipuncture / Unknown 11/15/2024 11:31 AM EDT 11/15/2024 12:03 PM EDT Narrative [facility] ([place]) - 11/17/2024 8:07 PM EDT Performed at: 01 - [address] [id number] [employer] Director: Denise Cordoba MD, Phone: [phone] Performed at: 02 - [address] [id number] [employer] Director: Raphael Edwards PhD, Phone: [phone] Mary Cobos NP LAB BLOOD ORDERABLES Final Result [facility] [address] [place] [address], * (ABNORMAL) Immunofixation (GATITO), Serum (11/15/2024 11:31 AM EDT) Pathologist [facility] GATITO Result Comment 11/17/2024 3:07 PM EDT [facility] ([place]) Comment:No monoclonality det ected. IgG 1397 586 - 1602 mg/dL 11/17/2024 3:07 PM EDT [facility] ([facility]) IgA 537(H) 87 - 352 mg/dL 11/17/2024 3:07 PM EDT [facility] ([facility]) IgM 151 26 - 217 mg/dL 11/17/2024 3:07 PM EDT [facility] ([facility]) Blood Venous blood specimen / Unknown Venipuncture / Unknown 11/15/2024 11:31 AM EDT 11/15/2024 12:03 PM EDT Narrative [facility] ([place]) - 11/17/2024 3:07 PM EDT Performed at: [address] [place] [id number] [employer] Director: Raphael Edwards PhD, Phone: [phone] Mary Cobos NP LAB BLOOD ORDERABLES Final Result [facility] [address] [place] [address], * (ABNORMAL) C3 complement (11/15/2024 11:31 AM EDT) Only the most recent of2 resultswithin the time period is included. [facility] C3 Complement 62(L) 87 - 200 mg/dL 11/15/2024 12:29 PM EDT [facility] Blood Venous blood specimen / Unknown Venipuncture / Unknown 11/15/2024 11:31 AM EDT 11/15/2024 12:02 PM EDT Narrative [facility] - 11/15/2024 12:29 PM EDT Please note possible changes in reference range and units reported due to change in methodology. [employer] LAB BLOOD ORDERABLES Final Result Performing Organization Address [facility]/ZIP Co de Phone Number [facility] [address] [place] [address], [place] [phone] * (ABNORMAL) C4 complement (11/15/2024 11:31 AM EDT) Only the most recent of2 resultswithin the time period is included. Pathologist [facility] C4 Complement 10(L) 19 - 52 mg/dL 11/15/2024 12:29 PM EDT [facility] Blood Venous blood specimen / Unknown Venipuncture / Unknown 11/15/2024 11:31 AM EDT 11/15/2024 12:02 PM EDT [facility] LABORATORY - 11/15/2024 12:29 PM EDT Please note possible changes in reference range and units reported due to change in methodology. [employer] LAB BLOOD ORDERABLES Final Result Performing Organization Address [facility]/ZIP Co de Phone Number [facility] [address] [place] [address], [place] [phone] * T3 (11/15/2024 11:31 AM EDT) [facility] T3, Total 95.00 87.00 - 178.00 ng/dL 11/15/2024 1:03 PM EDT [facility] Blood Venous blood specimen / Unknown Venipuncture / Unknown 11/15/2024 11:31 AM EDT 11/15/2024 12:03 PM EDT [facility] LABORATORY - 11/15/2024 1:03 PM EDT Please note possible changes in reference range and units reported due to change in methodology. [employer] LAB BLOOD ORDERABLES Final Result Performing Organization Address City/[facility]/ZIP Co de Phone Number [facility] [address] [place] [address], [place] [phone] * TSH (11/15/2024 11:31 AM EDT) TSH 1.334 0.450 - 5.330 uIU/mL 11/15/2024 12:38 PM EDT [facility] Comment: Non-Pregant Female: 0.45 - 5.33 IU/mL Female - 1st Trimester: 0.05 - 3.70 IU/mL Female - 2nd Trimester: 0.31 4.35 IU/mL Female - 3rd Trimester: 0.41 5.18 IU/mL Blood Venous blood specimen / Unknown Venipuncture / Unknown 11/15/2024 11:31 AM EDT 11/15/2024 12:03 PM EDT [facility] LAB[facility]ATORY - 11/15/2024 12:38 PM EDT Please note possible changes in reference range and units reported due to change in methodology. Mary Cobos LEV[employer]ER LAB BLOOD ORDERABLES Final Result Performing Organization Address [facility]/ZIP Co de Phone Number [facility] [address] [place] [address], * T4, free (11/15/2024 11:31 AM EDT) Free T4 0.89 0.61 - 1.12 ng/dL 11/15/2024 12:42 PM EDT [facility] Blood Venous blood specimen / Unknown Venipuncture / Unknown 11/15/2024 11:31 AM EDT 11/15/2024 12:02 PM EDT [facility] LAB[facility]ATORY - 11/15/2024 12:42 PM EDT Please note possible changes in reference range and units reported due to change in methodology. Mary Cobos LEV[employer]ER LAB BLOOD ORDERABLES Final Result Performing Organization Address [facility]/ZIP Co de Phone Number [facility] [address] [place] [address], [place] [phone] * Vitamin B1 (11/15/2024 11:31 AM EDT) Thiamine 100.4 66.5 - 200.0 nmol/L 11/18/2024 2:07 PM EDT [facility] ([place]) Blood Venous blood specimen / Unknown Venipuncture / Unknown 11/15/2024 11:31 AM EDT 11/15/2024 12:02 PM EDT Narrative [facility]) - 11/18/2024 2:07 PM EDT Test(s) 727307-Hkp. B1, Whole Blood was developed and its performance characteristics determined by [email or web address]. It has not been cleared or approved by the Food and Drug Administration. Performed at: [address] [id number] [employer]: Denise Cordoba MD, Phone: [phone] Mary Cobos NP LAB BLOOD ORDERABLES Final Result Performing Organization Address City/State/[facility] Co de Phone Number [facility]) [address] [place] [address], * Vitamin B6 (11/15/2024 11:31 AM EDT) Pathologist [facility] Vitamin B6 7.9 3.4 - 65.2 ug/L 11/20/2024 2:07 PM EDT [facility] ([place]) Comment: Deficiency: <3.4 Marginal: 3.4 - 5.1 Adequate: >5.1 Blood Venous blood specimen / Unknown Venipuncture / Unknown 11/15/2024 11:31 AM EDT 11/15/2024 12:02 PM EDT [facility]) - 11/20/2024 2:07 PM EDT Test(s) [id number]-[id number] B6 was developed and its performance characteristics determined by [email or web address]. It has not been cleared or approved by the Food and Drug Administration. Performed at: [address] [id number] [employer]: Denise Cordoba MD, Phone: [phone] Mary Cobos NP LAB BLOOD ORDERABLES Final Result [facility] ([facility]) [address] [place] [address], * Protein electrophoresis, serum (11/15/2024 11:31 AM EDT) Protein Total 6.6 6.0 - 8.5 g/dL 11/16/2024 5:07 PM EDT [facility] ([facility]) Albumin 3.4 2.9 - 4.4 g/dL 11/16/2024 5:07 PM EDT [facility] ([facility]) Alpha-1 Globulin 0.2 0.0 - 0.4 g/dL 11/16/2024 5:07 PM EDT [facility] ([facility]) Alpha-2 Globulin 0.6 0.4 - 1.0 g/dL 11/16/2024 5:07 PM EDT [facility] ([facility]) Beta Globulin 1.0 0.7 - 1.3 g/dL 11/16/2024 5:07 PM EDT [facility] ([facility]) Gamma Globulin 1.5 0.4 - 1.8 g/dL 11/16/2024 5:07 PM EDT [facility] ([facility]) M-Kirk Not Observed Not Observed g/dL 11/16/2024 5:07 PM EDT [facility] ([facility]) Globulin, Total 3.2 2.2 - 3.9 g/dL 11/16/2024 5:07 PM EDT [facility] ([facility]) A/G Ratio 1.1 0.7 - 1.7 11/16/2024 5:07 PM EDT [facility] ([facility]) PE Note Comment 11/16/2024 5:07 PM EDT [facility] ([facility]) Comment: Protein electrophoresis scan will follow via computer, mail, or surgical coder delivery. Blood Venous blood specimen / Unknown Venipuncture / Unknown 11/15/2024 11:31 AM EDT 11/15/2024 12:04 PM EDT Narrative [facility] ([facility]) - 11/16/2024 5:07 PM EDT Performed at: 01 - [address] [id number] [employer]: Raphael Edwards PhD, Phone: [phone] Mary Cobos LAB BLOOD ORDERABLES Final Result Performing Organization Address City/[facility]/ZIP Co de Phone Number [facility]) [address] [place] [address], * (ABNORMAL) Vitamin B12 (11/15/2024 11:31 AM EDT) Only the most recent of2 resultswithin the time period is included. [facility] Vitamin B-12 1,031.0(H) 180.0 - 914.0 pg/mL 11/15/2024 1:03 PM EDT [facility] Blood Venous blood specimen / Unknown Venipuncture / Unknown 11/15/2024 11:31 AM EDT 11/15/2024 12:03 PM EDT [facility] LABORATORY - 11/15/2024 1:03 PM EDT Please note possible changes in reference range and units reported due to change in methodology. Mary Cobos LAB BLOOD ORDERABLES Final Result [facility] [address] [place] [address], * (ABNORMAL) Comprehensive metabolic panel (11/15/2024 11:31 AM EDT) Only the most recent of2 resultswithin the time period is included. [facility] Sodium 139 134 - 143 mmol/L 11/15/2024 12:29 PM EDT [facility] Potassium 3.7 3.2 - 4.6 mmol/L 11/15/2024 12:29 PM EDT [facility] Chloride 105 99 - 108 mmol/L 11/15/2024 12:29 PM [facility] CO2 30(H) 19 - 29 mmol/L 11/15/2024 12:29 PM [facility] Anion Gap 4(L) 5 - 15 mmol/L 11/15/2024 12:29 PM [facility] BUN 19 7 - 20 mg/dL 11/15/2024 12:29 PM [facility] Creatinine 0.77 <=1.20 mg/dL 11/15/2024 12:29 PM [facility] BUN/Creatinine Ratio 24.68(H) 10.00 - 20.00 ratio 11/15/2024 12:29 PM [facility] Glucose 137(H) 58 - 104 mg/dL 11/15/2024 12:29 PM [facility] Calcium 8.8 7.9 - 11.1 mg/dL 11/15/2024 12:29 PM [facility] AST 55(H) 10 - 28 U/L 11/15/2024 12:29 PM [facility] ALT (SGPT) 32 <=40 U/L 11/15/2024 12:29 PM [facility] Alkaline Phosphatase 164(H) 29 - 108 U/L 11/15/2024 12:29 PM [facility] Total Protein 6.2 5.9 - 7.9 g/dL 11/15/2024 12:29 PM [facility] Albumin 3.3(L) 3.5 - 5.1 g/dL 11/15/2024 12:29 PM [facility] Globulin, Total 2.9 2.4 - 4.8 g/dL 11/15/2024 12:29 PM [facility] A/G Ratio 1.1 0.6 - 1.6 11/15/2024 12:29 PM [facility] Total Bilirubin 1.9(H) 0.3 - 1.0 mg/dL 11/15/2024 12:29 PM [facility] eGFR (CKD-EPI) 87.2 >60.0 - 200.0 mL/min/1. 73m*2 11/15/2024 12:29 PM EDT [facility] Blood Venous blood specimen / Unknown Venipuncture / Unknown 11/15/2024 11:31 AM EDT 11/15/2024 12:02 PM EDT Narrative [facility] - 11/15/2024 12:29 PM EDT Please note possible changes in reference range and units reported due to change in methodology. Mary Cobos NP LAB BLOOD ORDERABLES Final Result [facility] [address] [place] [address], * DSDNA ANTIBODY BY IFA, DANYELLA LUCILIAE (11/15/2024 11:29 AM EDT) dsDNA Crithidia luciliae IFA Negative Negative 11/17/2024 10:07 AM EDT [facility] ([place]) Blood Venous blood specimen / Unknown Venipuncture / Unknown 11/15/2024 11:29 AM EDT 11/15/2024 12:03 PM EDT [facility] NICHOLAS) - 11/17/2024 10:07 AM EDT Performed at: [address] [place] [id number] [employer]: Raphael Edwards PhD, Phone: [phone] Suman Treviño MD LAB BLOOD ORDERABLES Final Res ult [facility] ([place]) [address] [place] [address], [place] [phone] * Anti-CCP Antibodies, IgG & IgA, CRISTAL [...] - 11/16/2024 3:07 PM EDT Performed at: [address] [place] [id number] [employer]: Raphael Edwards PhD, Phone: [phone] us Suman rTeviño MD LAB BLOOD ORDERABLES Final Res ult Performing Organization Address [facility]/ZIP Co de Phone Number [facility] ([place]) [address] [place] [address], * Sjogren's Antibodies (11/15/2024 11:29 AM EDT) Sjogren's Anti-SS-A <0.2 0.0 - 0.9 AI 11/16/2024 12:07 PM EDT [facility] ([place]) Sjorgren's Anti-SS-B <0.2 0.0 - 0.9 AI 11/16/2024 12:07 PM EDT [facility] ([facility]) Blood Venous blood specimen / Unknown Venipuncture / Unknown 11/15/2024 11:29 AM EDT 11/15/2024 12:03 PM EDT Narrative [facility] ([place]) - 11/16/2024 12:07 PM EDT Performed at: [address] [place] [id number] [employer]: Raphael Edwards PhD, Phone: [phone] us Suman Treviño MD LAB BLOOD ORDERABLES Final Res ult Performing Organization Address City/[facility]/ZIP Co de Phone Number [employer] NICHOLAS) [address] [place] [address], [place] [phone] * Anti-Castellon antibody (11/15/2024 11:29 AM EDT) Castellon Abs <0.2 0.0 - 0.9 AI 11/16/2024 12:07 PM EDT [facility] ([place]) Blood Venous blood specimen / Unknown Venipuncture / Unknown 11/15/2024 11:29 AM EDT 11/15/2024 12:03 PM EDT Narrative [facility] ([place]) - 11/16/2024 12:07 PM EDT Performed at: - [address] [id number] [employer]: Raphael Edwards PhD, Phone: [phone] us Suman Treviño MD LAB BLOOD ORDERABLES Final Res ult Performing Organization Address [facility] Co de Phone Number [facility] NICHOL[facility]) [address] [place] [address], * Anti-Carole 1 antibody, IgG (11/15/2024 11:29 AM EDT) Anti-Carole-1 <0.2 0.0 - 0.9 AI 11/16/2024 12:07 PM EDT [facility] ([place]) Blood Venous blood specimen / Unknown Venipuncture / Unknown 11/15/2024 11:29 AM EDT 11/15/2024 12:03 PM EDT Narrative [facility] ([place]) - 11/16/2024 12:07 PM EDT Performed at: [address] [id number] [employer]: Raphael Edwards PhD, Phone: [phone] us Suman Treviño MD LAB BLOOD ORDERABLES Final Res ult Performing Organization Address City/[facility]/ZIP Co de Phone Number [facility] [address] [place] [address], * CK (11/15/2024 11:29 AM EDT) Total CK 76 30 - 223 U/L 11/15/2024 12:29 PM EDT [facility] Blood Venous blood specimen / Unknown Venipuncture / Unknown 11/15/2024 11:29 AM EDT 11/15/2024 12:02 PM EDT Narrative [facility] - 11/15/2024 12:29 PM EDT Please note possible changes in reference range and units reported due to change in methodology. us Suman Treviño MD LAB BLOOD ORDERABLES Final Res ult [facility] [address] [place] [address], [place] [phone] * TRANSTHORACIC ECHO (TTE) COMPLETE (10/31/2024 4:08 PM EDT) Anatomical Region Laterality Modality Ultrasound 10/31/2024 3:33 PM EDT Narrative 11/01/2024 12:55 PM EDT [facility] Cardiac Diagnostics Echo/Vascular [address] [place] [address] Web: [email or web address] Transthoracic Echocardiogram Patient: Asya Study 10/31/2024 Avis Date: Marguerite : 1970 Height: 67 in / Patient 170.2 status: cm Age: 54 Weight: 166.6 Patient Echocardiography lb / location Laboratory 75.7 kg : Gender: F BMI/BSA: 26.2 kg/m^2 / 1.87 m^2 HR: 72 bpm BP: 101 / 68 *Ordering Physician: * Devan Gomez *Primary Care Provider: * Trevor Rolon *Interpreting Physician: * Devan Gomez *Hospital Chief Financial Officer: DENIS Tai Indications: LVF. Study data: Transthoracic echocardiogram. Procedure: Transthoracic echocardiography was performed. Image quality was adequate. Complete 2D, complete spectral Doppler, and color Doppler. Location: Echo laboratory. Conclusions Summary: 1. Left ventricle: The cavity size is normal. Wall thickness is normal. Systolic function is normal. The estimated ejection fraction is 55-60%. Wall motion is normal; there are no regional wall motion abnormalities. Left ventricular diastolic function parameters are normal. 2. Right atrium: The estimated central venous pressure is 15 mm Hg. 3. Tricuspid valve: There is mild-moderate regurgitation. 4. Pulmonary arteries: Systolic pressure is mildly increased. The peak pressure during systole by Doppler is 34.8 mm Hg. Findings Left ventricle: The cavity size is normal. Wall thickness is normal. Systolic function is normal. The estimated ejection fraction is 55-60%. Wall motion is normal; there are no regional wall motion abnormalities. Left ventricular diastolic function parameters are normal. Right ventricle: The cavity size is normal. Systolic function is normal. Left atrium: The atrium is normal in size. Right atrium: The atrium is normal in size. Mitral valve: The valve is structurally normal. There is no evidence of stenosis. There is trivial regurgitation. Aortic valve: The valve is structurally normal. The valve is trileaflet. There is no evidence of stenosis. There is no regurgitation. Tricuspid valve: The valve is structurally normal. There is no evidence of stenosis. There is mild-moderate regurgitation. Pulmonic valve: The valve is structurally normal. There is no evidence of stenosis. There is no regurgitation. Aorta: Aortic root: The aortic root is not dilated. Pericardium: There is no pericardial effusion. Pulmonary arteries: Systolic pressure is mildly increased. Systemic veins: Inferior vena cava: The vessel is dilated. The respirophasic diameter changes are blunted (< 50%), consistent with elevated central venous pressure. Measurements Left ventricle Value 07/24/2022 Ref Right ventricle Value 07/24/2022 Ref LVIDd 3.9 cm 4.6 3.8 TAPSE, 2D 2.4 cm 2.7 1.7 - - 3.1 5.2 RAP 35 mm Hg 33 ----- LVIDs 2.8 cm 2.9 2.2 RV S' (H) 14.6 cm/sec 14.8 6.0 - - 13.4 3.5 ESD/bsa, LAX 1.5 cm/m^2 1.3 1.3 Left atrium Value 07/24/2022 Ref - LA Diam 3.6 cm 3.8 2.7 - 2.1 3.8 LAX FS% 29 % 38 27 - LAAs A4C 15.0 cm^2 22.8 <=20. 45 0 LVLs A4C 6.5 cm 7.1 ---- LAESV A4C 38 ml 63 22 - ESD/bsa 3.5 cm/m^2 3.3 ---- 52 major ax, Vol/bsa, ES, 21 ml/m^2 29 11 - A4C 1-p A4C 40 LVLd A4C 6.5 cm 7.1 ---- LAESV A2C 27 ml 69 22 - DEBI/bsa 3.5 cm/m^2 3.3 ---- 52 minor ax, LAESV (A-L) 35 ml 77 ----- A4C Vol/bsa, ES, 19 ml/m^2 36 16 - LVLd A2C 8.1 cm 9.0 ---- 2-p 34 LVLs A2C 6.6 cm 7.3 ---- Vol/bsa, ES, 22 ml/m^2 32 16 - DEBI/bsa 4.3 cm/m^2 4.2 ---- A/L 34 major ax, A2C Aortic valve Value 07/24/2022 Ref ESD/bsa 3.5 cm/m^2 3.4 ---- AV Annulus 2.0 cm 1.7 1.9 - major ax, Diam 2.7 A2C Estephania 1.1 cm/m^2 0.8 1.1 - LVPWd (H) 1.0 cm 1.0 0.6 diam/bsa, S 1.5 - Peak v, S 1.41 m/sec 1.53 ----- 0.9 Mean v, S 0.98 m/sec 1.07 ----- IVS/PW, ED 0.97 1.07 ---- VTI, S 33.3 cm 33.3 ----- EDV 66 ml 99 46 - Mean grad, S 4.44 mm Hg 5.02 ----- 106 Peak grad, S 7.96 mm Hg 9.38 ----- ESV 28 ml 32 14 - PENG, VTI 2.77 cm^2 2.85 ----- 42 LVOT/AV, 0.99 0.83 ----- LAX EF 57 % 68 54 - Vpeak ratio 74 PENG, Vmax 2.90 cm^2 2.65 ----- LVd Mass 134 g 66 - 150 Mitral valve Value 07/24/2022 Ref Mass/bsa 72 g/m^2 44 - Peak E 1.03 m/sec 1.21 ----- 88 Peak A 0.63 m/sec 0.71 ----- Mass/ht 78.68 g/m ---- Mean v, D 0.55 m/sec 0.54 ----- Mass/ht^2.7 31.86 g/m^2.7 ---- MV VTI 21.5 cm 26.1 ----- LVEDV MOD 82 ml 122 41 - Decel time 185 ms 157 ----- A2C 133 PHT 66 ms 79 ----- LVESV MOD 34 ml 46 10 - Mean grad, D 1.45 mm Hg 1.42 ----- A2C 54 Peak grad, D 3.72 mm Hg 4.24 ----- LV EF A2C 58 % 62 52 - MV E/A ratio 1.64 1.71 ----- 76 MVA 4.2 cm^2 3.6 ----- SV MOD A2C 48 ml 76 ---- MVA, PHT 3.3 cm^2 2.8 ----- SV/bsa, 1-p 25.7 ml/m^2 35.4 ---- A2C Tricuspid valve Value 07/24/2022 Ref LVEDV A4C 76 ml 124 48 - TR peak v 2.22 m/sec 2.51 <=2.8 140 0 ESV, 1-p A4C 32 ml 45 12 - 60 Aortic root Value 07/24/2022 Ref LVEF A4C 58 % 64 46 - Sinuses of 3.3 cm 2.6 <4.0 78 Valsalva SV MOD A4C 44 ml 79 ---- Root max 1.7 cm/m^2 1.2 1.4 - EDV/bsa, 1-p 41 ml/m^2 58 30 - diam/bsa, ED 2.[address] junct 2.9 cm 2.3 ----- ESV/bsa, 1-p 17 ml/m^2 21 7 - S-T junct 1.5 cm/m^2 1.1 ----- A4C 35 diam/bsa, S SV/bsa, 1-p 24 ml/m^2 37 ---- A4C Ascending aorta Value 07/24/2022 Ref LVEDV BP 82 ml 125 46 - Ao asc 3.5 cm 2.9 ----- 106 AAo AP 1.9 cm/m^2 1.4 ----- LVESV BP 33 ml 46 14 - diam/bsa, S 42 LV EF, 60 % 63 54 - Pulmonary artery Value 07/24/2022 Ref biplane 74 Pressure, S 34.8 mm Hg 33.2 ----- EDV/bsa, 2-p 44 ml/m^2 58 29 - 61 Systemic veins Value 07/24/2022 Ref ESV/bsa, 2-p 18 ml/m^2 21 8 - Estimated 15 mm Hg 8 ----- 24 CVP LVd Mass 119 g 67 - (ASE) 162 Mass/ht, MM 70 g/m 41 - 99 Mass/ht^2.7, 28 g/m^2.7 ---- MM E', lat, TDI 16.14 cm/s 13.86 >=10 .00 E/e', lat, 6.40 8.71 ---- TDI E', sept, 10.46 cm/s 14.02 >=7. TDI 00 E/e', sept, 9.87 8.61 ---- TDI E', avg, TDI 13.30 cm/s 13.94 ---- E/e', avg, 7.76 8.66 <=14 TDI .00 LVOT Value 07/24/2022 Ref LVOT Diam 1.93 cm 2.01 ---- LVOT Vmax 1.39 m/sec 1.27 ---- LVOT Vmean 0.91 m/sec 0.84 ---- LVOT Max PG 8 mm Hg 6 ---- LVOT Mean PG 4 mm Hg 3 ---- LVSV Dopp 92 ml 95 ---- SV/bsa 49 ml/m^2 44 ---- Ventricular septum Value 07/24/2022 Ref IVSd (H) 1.0 cm 1.0 0.6 - 0.9 Legend: (L) and (H) clifford values outside specified reference range. Prepared and electronically signed by Devan Gomez 11/01/2024 12:55 Procedure Note Devan Gomez MD - 11/01/2024 [facility] Cardiac Diagnostics Echo/Vascular [address] [place] [address] Web: [email or web address] Transthoracic Echocardiogram Patient: Asya Study 10/31/2024 Avis Date: Marguerite : 1970 Height: 67 in / Patient 170.2 status: cm Age: 54 Weight: 166.6 Patient Echocardiography lb / location Laboratory 75.7 kg : Gender: F BMI/BSA: 26.2 kg/m^2 / 1.87 m^2 HR: 72 bpm BP: 101 / 68 *Ordering Physician: * Devan Gomez *Primary Care Provider: * Trevor Rolon *Interpreting Physician: * Devan Gomez *Hospital Chief Financial Officer: * DENIS Mooney Indications: LVF. Study data: Transthoracic echocardiogram. Procedure: Transthoracic echocardiography was performed. Image quality was adequate. Complete 2D, complete spectral Doppler, and color Doppler. Location: Echo laboratory. Conclusions Summary: 1. Left ventricle: The cavity size is normal. Wall thickness is normal. Systolic function is normal. The estimated ejection fraction is 55-60%. Wall motion is normal; there are no regional wall motion abnormalities. Left ventricular diastolic function parameters are normal. 2. Right atrium: The estimated central venous pressure is 15 mm Hg. 3. Tricuspid valve: There is mild-moderate regurgitation. 4. Pulmonary arteries: Systolic pressure is mildly increased. The peak pressure during systole by Doppler is 34.8 mm Hg. Findings Left ventricle: The cavity size is normal. Wall thickness is normal. Systolic function is normal. The estimated ejection fraction is 55-60%. Wall motion is normal; there are no regional wall motion abnormalities. Left ventricular diastolic function parameters are normal. Right ventricle: The cavity size is normal. Systolic function is normal. Left atrium: The atrium is normal in size. Right atrium: The atrium is normal in size. Mitral valve: The valve is structurally normal. There is no evidence of stenosis. There is trivial regurgitation. Aortic valve: The valve is structurally normal. The valve is trileaflet. There is no evidence of stenosis. There is no regurgitation. Tricuspid valve: The valve is structurally normal. There is no evidence of stenosis. There is mild-moderate regurgitation. Pulmonic valve: The valve is structurally normal. There is no evidence of stenosis. There is no regurgitation. Aorta: Aortic root: The aortic root is not dilated. Pericardium: There is no pericardial effusion. Pulmonary arteries: Systolic pressure is mildly increased. Systemic veins: Inferior vena cava: The vessel is dilated. The respirophasic diameter changes are blunted (< 50%), consistent with elevated central venous pressure. Measurements Left ventricle Value 07/24/2022 Ref Right ventricleValue 07/24/2022 Ref LVIDd 3.9 cm 4.6 3.8 TAPSE, 2D 2.4cm 2.7 1.7 - -3.1 5.2 RAP 35mm Hg 33 ----- LVIDs 2.8 cm 2.9 2.2 RV S' (H)14.6 cm/sec 14.8 6.0 - -13.4 3.5 ESD/bsa, LAX 1.5 cm/m^2 1.3 1.3 Left atriumValue 07/24/2022 Ref - LA Diam 3.6cm 3.8 2.7 - 2.13.8 LAX FS% 29 % 38 27 - LAAs A4C15.0 cm^2 22.8 <=20. 450 LVLs A4C 6.5 cm 7.1 ---- LAESV A4C 38ml 63 22 - ESD/bsa 3.5 cm/m^2 3.3 ----52 major ax, Vol/bsa, ES, 21ml/m^2 29 11 - A4C 1-p A4C40 LVLd A4C 6.5 cm 7.1 ---- LAESV A2C 27ml 69 22 - DEBI/bsa 3.5 cm/m^2 3.3 ----52 minor ax, LAESV (A-L) 35ml 77 ----- A4C Vol/bsa, ES, 19ml/m^2 36 16 - LVLd A2C 8.1 cm 9.0 ---- 2-p34 LVLs A2C 6.6 cm 7.3 ---- Vol/bsa, ES, 22ml/m^2 32 16 - DEBI/bsa 4.3 cm/m^2 4.2 ---- A/L34 major ax, A2C Aortic valveValue 07/24/2022 Ref ESD/bsa 3.5 cm/m^2 3.4 ---- AV Annulus 2.0cm 1.7 1.9 - major ax, Diam2.7 A2C Estephania 1.1cm/m^2 0.8 1.1 - LVPWd (H) 1.0 cm 1.0 0.6 diam/bsa, S1.5 - Peak v, S1.41 m/sec 1.53 ----- 0.9 Mean v, S0.98 m/sec 1.07 ----- IVS/PW, ED 0.97 1.07 ---- VTI, S33.3 cm 33.3 ----- EDV 66 ml 99 46 - Mean grad, S4.44 mm Hg 5.02 ----- 106 Peak grad, S7.96 mm Hg 9.38 ----- ESV 28 ml 32 14 - PENG, VTI2.77 cm^2 2.85 ----- 42 LVOT/AV,0.99 0.83 ----- LAX EF 57 % 68 54 - Vpeak ratio 74 PENG, Vmax2.90 cm^2 2.65 ----- LVd Mass 134 g 66 - 150 Mitral valveValue 07/24/2022 Ref Mass/bsa 72 g/m^2 44 - Peak E1.03 m/sec 1.21 ----- 88 Peak A0.63 m/sec 0.71 ----- Mass/ht 78.68 g/m ---- Mean v, D0.55 m/sec 0.54 ----- Mass/ht^2.7 31.86 g/m^2.7 ---- MV VTI21.5 cm 26.1 ----- LVEDV MOD 82 ml 122 41 - Decel time 185ms 157 ----- A2C 133 PHT 66ms 79 ----- LVESV MOD 34 ml 46 10 - Mean grad, D1.45 mm Hg 1.42 ----- A2C 54 Peak grad, D3.72 mm Hg 4.24 ----- LV EF A2C 58 % 62 52 - MV E/A ratio1.64 1.71 ----- 76 MVA 4.2cm^2 3.6 ----- SV MOD A2C 48 ml 76 ---- MVA, PHT 3.3cm^2 2.8 ----- SV/bsa, 1-p 25.7 ml/m^2 35.4 ---- A2C Tricuspid valveValue 07/24/2022 Ref LVEDV A4C 76 ml 124 48 - TR peak v2.22 m/sec 2.51 <=2.8 1400 ESV, 1-p A4C 32 ml 45 12 - 60 Aortic rootValue 07/24/2022 Ref LVEF A4C 58 % 64 46 - Sinuses of 3.3cm 2.6 <4.0 78 Valsalva SV MOD A4C 44 ml 79 ---- Root max 1.7cm/m^2 1.2 1.4 - EDV/bsa, 1-p 41 ml/m^2 58 30 - diam/bsa, ED2.2 [address] junct 2.9cm 2.3 ----- ESV/bsa, 1-p 17 ml/m^2 21 7 - S-T junct 1.5cm/m^2 1.1 ----- A4C 35 diam/bsa, S SV/bsa, 1-p 24 ml/m^2 37 ---- A4C Ascending aortaValue 07/24/2022 Ref LVEDV BP 82 ml 125 46 - Ao asc 3.5cm 2.9 ----- 106 AAo AP 1.9cm/m^2 1.4 ----- LVESV BP 33 ml 46 14 - diam/bsa, S 42 LV EF, 60 % 63 54 - Pulmonary arteryValue 07/24/2022 Ref biplane 74 Pressure, S34.8 mm Hg 33.2 ----- EDV/bsa, 2-p 44 ml/m^2 58 29 - 61 Systemic veinsValue 07/24/2022 Ref ESV/bsa, 2-p 18 ml/m^2 21 8 - Estimated 15mm Hg 8 ----- 24 CVP LVd Mass 119 g 67 - (ASE) 162 Mass/ht, MM 70 g/m 41 - 99 Mass/ht^2.7, 28 g/m^2.7 ---- MM E', lat, TDI 16.14 cm/s 13.86 >=10 .00 E/e', lat, 6.40 8.71 ---- TDI E', sept, 10.46 cm/s 14.02 >=7. TDI 00 E/e', sept, 9.87 8.61 ---- TDI E', avg, TDI 13.30 cm/s 13.94 ---- E/e', avg, 7.76 8.66 <=14 TDI .00 LVOT Value 07/24/2022 Ref LVOT Diam 1.93 cm 2.01 ---- LVOT Vmax 1.39 m/sec 1.27 ---- LVOT Vmean 0.91 m/sec 0.84 ---- LVOT Max PG 8 mm Hg 6 ---- LVOT Mean PG 4 mm Hg 3 ---- LVSV Dopp 92 ml 95 ---- SV/bsa 49 ml/m^2 44 ---- Ventricular septum Value 07/24/2022 Ref IVSd (H) 1.0 cm 1.0 0.6 - 0.9 Legend: (L) and (H) clifford values outside specified reference range. Prepared and electronically signed by Devan Gomez 11/01/2024 12:55 Devan Gomez MD CV ECHO PROCEDURES Final Result * (ABNORMAL) CBC (10/26/2024 1:37 PM EDT) Auto WBC 4.5 3.8 - 11.0 10*3/uL [facility] RBC 3.93 3.73 - 5.13 10*6/uL 10/26/2024 4:17 PM [facility] Hemoglobin 13.3 11.2 - 15.3 g/dL 10/26/2024 4:17 PM [facility] Hematocrit 38.5 32.6 - 44.6 % 10/26/2024 4:[facility] MCV 97.8(H) 78.8 - 96.0 fL 10/26/2024 4:17 PM [facility] MCH 33.9(H) 26.2 - 33.0 pg 10/26/2024 4:17 PM [facility] MCHC 34.6 32.7 - 35.1 g/dL 10/26/2024 4:17 PM [facility] RDW 13.2 12.1 - 16.1 % 10/26/2024 4:17 PM [facility] Platelets 73(L) 138 - 402 10*3/uL 10/26/2024 4:17 PM [facility] MPV 8.8 7.0 - 10.6 fL 10/26/2024 4:17 PM [facility] Blood Venous blood specimen / Unknown Venipuncture / Unknown 10/26/2024 1:37 PM EDT 10/26/2024 1:37 PM EDT us Laquita WELSH LAB BLOOD ORDERABLES Final Re sult [facility] [address] [place] [address], * Uric acid (10/26/2024 1:37 PM EDT) Uric Acid 3 2 - 8 mg/dL 10/26/2024 4:12 PM EDT [facility] Blood Venous blood specimen / Unknown Venipuncture / Unknown 10/26/2024 1:37 PM EDT 10/26/2024 1:37 PM EDT Narrative [facility] - 10/26/2024 4:12 PM EDT Please note possible changes in reference range and units reported due to change in methodology. us Laquita Amin Ellis WELSH LAB BLOOD ORDERABLES Final Re sult [facility] [address] [place] [address], * MR brain w and wo contrast (10/24/2024 4:14 PM EDT) Anatomical Region Laterality Modality Brain Magnetic Resonan ce 10/24/2024 3:26 PM EDT Impressions 10/24/2024 4:22 PM EDT No evidence of acute intracranial abnormality. Electronically signed by: Alexsander Dsouza MD 10/24/2024 04:22 PM EDT Narrative 10/24/2024 4:22 PM EDT PROCEDURE: MR BRAIN WITHOUT THEN WITH IV CONTRAST: 10/24/2024 CLINICAL INFORMATION: syncope, headaches, memory loss The configuration of the ventricles and sulci are unremarkable. There is no evidence of acute intracranial hemorrhage. There is no evidence of mass, or mass effect. There is a small right frontal venous angioma. Postcontrast images otherwise show no evidence of abnormal enhancement. The diffusion weighted images show no evidence of acute ischemic change. Osseous structures are intact. The included paranasal sinuses are clear. Mastoids are clear. Soft tissues are unremarkable in appearance. Procedure Note Alexsander Dsouza MD - 10/24/2024 PROCEDURE: MR BRAIN WITHOUT THEN WITH IV CONTRAST: 10/24/2024 CLINICAL INFORMATION: syncope, headaches, memory loss The configuration of the ventricles and sulci are unremarkable. There isno evidence of acute intracranial hemorrhage. There is no evidence ofmass, or mass effect. There is a small right frontal venous angioma.Postcontrast images otherwise show no evidence of abnormal enhancement.The diffusion weighted images show no evidence of acute ischemic change. Osseous structures are intact. The included paranasal sinuses are clear.Mastoids are clear. Soft tissues are unremarkable in appearance. IMPRESSION: No evidence of acute intracranial abnormality. Electronically signed by: Alexsander Dsouza MD 10/24/2024 04:22 PM EDT RPWorkstation: [id number] Mary Cobos NP IMG MRI PROCEDURES F inal Result * US carotid doppler bilateral (10/24/2024 1:33 PM EDT) Anatomical Region Laterality Modality Head Ultrasound 10/24/2024 1:14 PM EDT Impressions 10/24/2024 1:40 PM EDT No evidence of hemodynamically significant stenosis of [...] Alexsander Dsouza MD 10/24/2024 01:40 PM EDT RP Narrative 10/24/2024 1:40 PM EDT PROCEDURE: US CAROTID DOPPLER BILATERAL: 10/24/2024 CLINICAL INFORMATION: numbness, weakness both legs LEFT CAROTID ARTERY There is appropriate direction and arterial flow within the left common carotid artery. The left internal carotid artery shows mild plaque without significant stenosis. There is appropriate direction and arterial flow within the left external carotid artery, vertebral artery, and subclavian artery. Procedure Note Alexsander Dsouza MD - 10/24/2024 PROCEDURE: US CAROTID DOPPLER BILATERAL: 10/24/2024 CLINICAL INFORMATION: numbness, weakness both legs LEFT CAROTID ARTERY There is appropriate direction and arterial flow within the left commoncarotid artery. The left internal carotid artery shows mild plaque withoutsignificant stenosis. There is appropriate direction and arterial flowwithin the left external carotid artery, vertebral artery, and subclavianartery. IMPRESSION: No evidence of hemodynamically significant stenosis of the left internalcarotid artery. RIGHT CAROTID ARTERY There is appropriate direction and arterial flow within the right commoncarotid artery. The right internal carotid artery shows mild plaquewithout significant stenosis. There is appropriate direction and arterialflow within the right external carotid artery, vertebral artery, andsubclavian artery. IMPRESSION: No evidence of hemodynamically significant stenosis of theright internal carotid artery. Electronically signed by: Alexsander Dsouza MD 10/24/2024 01:40 PM EDT RPWorkstation: [id number] Mary Cobos LEVEL VIAL GRINDER IMG US PROCEDURES Fi nal Result * Slide sent to pathology (10/17/2024 4:38 PM EDT) Blood Venous blood specimen / Unknown Venipuncture / Unknown 10/17/2024 4:38 PM EDT 10/17/2024 4:53 PM EDT us Lucy Christopher DO LAB BLOOD ORDERABLES Final Resul t Performing Organization Address City/[facility] Co de Phone Number [facility] [address] [place] [address], * Pathology Review (10/17/2024 4:38 PM EDT) Pathologist Review and Interpretation Macrocytic, normochromic RBCs with anemia. Thrombocytopenia without platelet clumping. Normal total WBC count with mild eosinophilia. No granulocytic dysplasia or blast identified. Bhaskar Gong MD 10/19/2024 11:01 AM EDT [facility] Comment: Electronically reported by Bhaskar Gong MD on 10/19/24 at 11:01 AM. Blood Venous blood specimen / Unknown Venipuncture / Unknown 10/17/2024 4:38 PM EDT 10/17/2024 4:53 PM EDT us Lucy Christopher DO LAB BLOOD ORDERABLES Final Resul t Performing Organization Address City/[facility]/ZIP Co de Phone Number [facility] [address] [place] [address], * Transferrin saturation (10/17/2024 4:38 PM EDT) Transferrin Saturation 57 % 10/17/2024 5:33 PM EDT [facility] Blood Venous blood specimen / Unknown Venipuncture / Unknown 10/17/2024 4:38 PM EDT 10/17/2024 4:53 PM EDT [facility] - 10/17/2024 5:33 PM EDT Please note possible changes in reference range and units reported due to change in methodology. [employer] LAB BLOOD ORDERABLES Final Resul t Performing Organization Address [facility]/ZIP Co de Phone Number [facility] [address] [place] [address], [place] [phone] * Total Iron Binding Capacity (10/17/2024 4:38 PM EDT) TIBC 259 ug/dL 10/17/2024 5:33 PM EDT [facility] Blood Venous blood specimen / Unknown Venipuncture / Unknown 10/17/2024 4:38 PM EDT 10/17/2024 4:53 PM EDT [facility] - 10/17/2024 5:33 PM EDT Please note possible changes in reference range and units reported due to change in methodology. [employer] LAB BLOOD ORDERABLES Final Resul t Performing Organization Address [facility] Co de Phone Number [facility] [address] [place] [address], [place] [phone] * (ABNORMAL) Copper, serum (10/17/2024 4:38 PM EDT) Copper 76(L) 80 - 158 ug/dL 10/23/2024 4:07 PM EDT [facility] ([facility]) Comment:Detection Limit = 5 Blood Venous blood specimen / Unknown Venipuncture / Unknown 10/17/2024 4:38 PM EDT 10/17/2024 4:53 PM EDT Narrative [facility] ([facility] - 10/23/2024 4:07 PM EDT Test(s) 546354-Mdcokz, Serum or Plasma was developed and its performance characteristics determined by [email or web address]. It has not been cleared or approved by the Food and Drug Administration. Performed at: [address] [id number] [employer] Director: Denise Cordoba MD, Phone: [phone] [employer] LAB BLOOD ORDERABLES Final Resul t Performing Organization Address [facility] Co de Phone Number [employer] NICHOLAS) [address] [place] [address], * (ABNORMAL) Zinc (10/17/2024 4:38 PM EDT) Zinc 41(L) 44 - 115 ug/dL 10/23/2024 8:06 AM EDT [facility] ([facility]) Comment:Detection Limit = 5 Blood Venous blood specimen / Unknown Venipuncture / Unknown 10/17/2024 4:38 PM EDT 10/17/2024 4:53 PM EDT Narrative [facility] ([facility]) - 10/23/2024 8:06 AM EDT Test(s) 414874-[id number], Plasma or Serum was developed and its performance characteristics determined by [email or web address]. It has not been cleared or approved by the Food and Drug Administration. Performed at: [address] [id number] [employer] Director: Denise Cordoba MD, Phone: [phone] [facility] LAB BLOOD ORDERABLES Final Resul t Performing Organization Address [facility]/ZIP Co de Phone Number [facility] NICHOLAS) [address] [place] [address], * Reticulocytes (10/17/2024 4:38 PM EDT) Retic Ct Pct 1.38 0.33 - 2.37 % 10/17/2024 5:03 PM EDT [facility] Blood Venous blood specimen / Unknown Venipuncture / Unknown 10/17/2024 4:38 PM EDT 10/17/2024 4:53 PM EDT us Ayala [employer] LAB BLOOD ORDERABLES Final Resul t Performing Organization Address City/[facility]/ZIP Co de Phone Number [facility] [address] [place] [address], [place] [phone] * Lactate dehydrogenase (10/17/2024 4:38 PM EDT) LD 234 0 - 248 U/L 10/17/2024 5:33 PM EDT [facility] Blood Venous blood specimen / Unknown Venipuncture / Unknown 10/17/2024 4:38 PM EDT 10/17/2024 4:53 PM EDT [facility] - 10/17/2024 5:33 PM EDT Please note possible changes in reference range and units reported due to change in methodology. us Ayala [employer] LAB BLOOD ORDERABLES Final Resul t Performing Organization Address [facility]/ZIP Co de Phone Number [facility] [address] [place] [address], [place] [phone] * Iron (10/17/2024 4:38 PM EDT) [facility] Iron 148 50 - 212 ug/dL 10/17/2024 5:33 PM EDT [facility] Blood Venous blood specimen / Unknown Venipuncture / Unknown 10/17/2024 4:38 PM EDT 10/17/2024 4:53 PM EDT [facility] - 10/17/2024 5:33 PM EDT Please note possible changes in reference range and units reported due to change in methodology. [employer] Lucy [employer] LAB BLOOD ORDERABLES Final Resul t Performing Organization Address City/[facility]/ZIP Co de Phone Number [facility] [address] [place] [address], [place] [phone] * (ABNORMAL) Haptoglobin (10/17/2024 4:38 PM EDT) Haptoglobin <30.0(L) 30.0 - 200.0 mg/dL 10/17/2024 5:22 PM EDT [facility] Blood Venous blood specimen / Unknown Venipuncture / Unknown 10/17/2024 4:38 PM EDT 10/17/2024 4:53 PM EDT [facility] - 10/17/2024 5:22 PM EDT Please note possible changes in reference range and units reported due to change in methodology. [employer] LAB BLOOD ORDERABLES Final Resul t Performing Organization Address City/[facility]/ZIP Co de Phone Number [facility] [address] [place] [address], * Folate (10/17/2024 4:38 PM EDT) Pathologist [facility] Folate 20.6 5.9 - 24.8 ng/mL 10/17/2024 5:49 PM EDT [facility] Blood Venous blood specimen / Unknown Venipuncture / Unknown 10/17/2024 4:38 PM EDT 10/17/2024 4:53 PM EDT [facility] - 10/17/2024 5:49 PM EDT Please note possible changes in reference range and units reported due to change in methodology. [employer] LAB BLOOD ORDERABLES Final Resul t [facility] [address] [place] [address], [place] [phone] * Ferritin (10/17/2024 4:38 PM EDT) Pathologist [facility] Ferritin 290.0 ng/mL 10/17/2024 5:38 PM EDT [facility] Blood Venous blood specimen / Unknown Venipuncture / Unknown 10/17/2024 4:38 PM EDT 10/17/2024 4:53 PM EDT [facility] - 10/17/2024 5:38 PM EDT Please note possible changes in reference range and units reported due to change in methodology. us Lucy Christopher DO LAB BLOOD ORDERABLES Final Resul t Performing Organization Address [facility] Co de Phone Number [facility] [address] [place] [address], [place] [phone] * Hemoglobin A1c (06/01/2024 1:29 PM EST) Hemoglobin A1C 5.0 3.0 - 6.0 % 06/01/2024 3:13 PM EST [facility] Comment: Additional Reference Ranges: 6.0 - 9.0% Controlled Diabetic >9.0 Poorly Controlled Diabetic *Hemoglobin A1c is an FDA approved test for monitoring fpc glucose control in individuals with diabetes. It is not an approved screening test for diagnosing type 1 and type 2 diabetes. Results of Hemoglobin A1c are not reliable in patients with chronic blood loss, consequent variable erythrocyte lifespan, hemolytic diseases, , and significant blood loss. MEAN BLOOD GLUCOSE 96.8 mg/dl 06/01/2024 3:13 PM EST [facility] Blood Venous blood specimen / Unknown Venipuncture / Unknown 06/01/2024 1:29 PM EST 06/01/2024 1:29 PM EST [facility] - 06/01/2024 3:13 PM EST Please note possible changes in reference range and units reported due to change in methodology. Laquita WELSH LAB BLOOD ORDERABLES Final Re sult Performing Organization Address City/[facility]/ZIP Co de Phone Number [facility] [address] [place] [address], [place] [phone] * BI Screening mammogram bilateral w tomosynthesis (02/15/2024 9:38 AM EDT) Anatomical Region Laterality Modality Breast Bilateral Mammography 02/15/2024 9:18 AM EDT Impressions 02/15/2024 10:16 AM EDT No mammographic evidence of malignancy. RECOMMENDATION: Routine screening mammography is recommended in 1 year ACR BI-RADS: Category 2: Benign Finding(s) The results of this report will be communicated to the patient by letter in layman's terms. Electronically signed by: Shady Rogers MD 02/15/2024 10:16 AM EDT RP Narrative 02/15/2024 10:16 AM EDT Exam: 3-D screening mammography including tomosynthesis and CAD (Computer Assisted Detection). CLINICAL INDICATION: Asymptomatic screening exam. COMPARISON: 2016, 2007, 2004 TECHNIQUE: Routine bilateral 2D screening mammogram with CC and MLO views obtained. 3-D tomosynthesis and Computer assisted detection were utilized for this exam. BREAST DENSITY:Scattered areas of fibroglandular density. FINDINGS: No suspicious mass, architectural distortion, or suspicious calcifications are present in either breast.Bilateral postreduction surgery changes. Left breast benign coarse calcifications. Trevor Rolon DO [facility] BI PROCEDURES Final Result * Colonoscopy (07/31/2022 7:53 AM EST) Anatomical Region Laterality Modality Endoscopy 07/31/2022 7:19 AM EST Impressions 07/31/2022 7:56 AM EST Impression: - Two 3 to 4 mm polyps in the ascending colon, removed with a cold biopsy forceps. Resected and retrieved. - Diverticulosis in the sigmoid colon. - Non-bleeding internal hemorrhoids. Narrative 07/31/2022 7:56 AM EST Patient Name: Avis Ortgeaon Attending MD: Mc Grant DO Scope(s) used: 3833 Exam Date: 07/31/2022 7:19 AM Procedure: Colonoscopy Indications: Iron deficiency anemia secondary to chronic blood loss Providers: Mc Grant DO Referring MD: Mc [...] by the physician, the nurse and the skip pit worker. The procedure was verified in the pre-procedure [...] satisfactory condition to undergo the procedure. After I obtained informed consent, the scope was passed under direct vision. Throughout the procedure, the patient's blood pressure, pulse, and oxygen saturations were monitored continuously. The Colonoscope was introduced through the anus and advanced to the cecum, identified by appendiceal orifice and ileocecal valve. The colonoscopy was performed without difficulty. The patient tolerated the procedure well. The quality of the bowel preparation was good. Estimated Blood Loss: Estimated blood loss was minimal. Post Op Dx: The perianal and digital rectal examinations were normal. Two sessile polyps were found in the ascending colon. The polyps were 3 to 4 mm in size. These polyps were removed with a cold biopsy forceps. Resection and retrieval were complete. Estimated blood loss was minimal. Multiple small-mouthed diverticula were found in the sigmoid colon. Non-bleeding internal hemorrhoids were found during retroflexion. The hemorrhoids were Grade I (internal hemorrhoids that do not prolapse). Recommendations: - Discharge patient to home. - Resume previous diet. - Continue present medications. - Repeat colonoscopy in 5 years for surveillance. - Return to GI office in 3 months. - Patient has a contact number available for emergencies. The signs and symptoms of potential delayed complications were discussed with the patient. Return to normal activities tomorrow. Written discharge instructions were provided to the patient. Procedure Code(s): --- Professional --- 19170, Colonoscopy, flexible; with biopsy, single or multiple --- Technical --- 74627, Colonoscopy, flexible; with biopsy, single or multiple Diagnosis Code(s): --- Professional --- D12.2, Benign neoplasm of ascending colon K64.0, First degree hemorrhoids D50.0, Iron deficiency anemia secondary to blood loss (chronic) K57.30, Diverticulosis of large intestine without perforation or abscess without bleeding --- Technical --- D12.2, Benign neoplasm of ascending colon K64.0, First degree hemorrhoids D50.0, Iron deficiency anemia secondary to blood loss (chronic) K57.30, Diverticulosis of large intestine without perforation or abscess without bleeding CPT copyright 2018 [employer]. All rights reserved. The codes documented in this report are preliminary and upon automobile brakes bonder review may be revised to meet current compliance requirements. DO Mc Ceja Jr., DO 07/31/2022 7:55:48 AM This report has been signed electronically. Number of Addenda: 0 Note Initiated On: 07/31/2022 7:19 AM Procedure Note Mc Grant DO - 07/31/2022 Patient Name: Avis Sky Attending MD: Mc Grant DO Scope(s) used: [id number] Exam Date: 07/31/2022 7:19 AM Procedure: Colonoscopy Indications: Iron deficiency anemia secondary to chronic bloodloss Providers: Mc Grant DO Referring MD: Mc Grant DO Medicines: Monitored Anesthesia Care Complications: No immediate complications. Procedure: Pre-Anesthesia Assessment: - Prior to the procedure, a History and Physical was performed, and patient medications, allergies and sensitivities were reviewed. The patient's toleranceof previous anesthesia was reviewed. - Patient identification and proposed procedure were verified prior to the procedure by the physician,the nurse and the skip pit worker. The procedure wasverified in the pre-procedure area. - The risks and benefits of the procedure and the sedation options and risks were discussed with the patient. All questions were answered and informed consent was obtained. - Pre-procedure physical examination revealed no contraindications to sedation. - After reviewing the risks and benefits, thepatient was deemed in satisfactory condition to undergo the procedure. After I obtained informed consent, the scope waspassed under direct vision. Throughout the procedure, the patient's blood pressure, pulse, and oxygensaturations were monitored continuously. The Colonoscope was introduced through the anus and advanced to thececum, identified by appendiceal orifice and ileocecalvalve. The colonoscopy was performed without difficulty.The patient tolerated the procedure well. The quality of the bowel preparation was good. Estimated Blood Loss: Estimated blood loss was minimal. Post Op Dx: The perianal and digital rectal examinations were normal. Two sessile polyps were found in the ascending colon. The polyps were3 to 4 mm in size. These polyps were removed with a cold biopsyforceps. Resection and retrieval were complete. Estimated blood loss wasminimal. Multiple small-mouthed diverticula were found in the sigmoid colon. Non-bleeding internal hemorrhoids were found during retroflexion. The hemorrhoids were Grade I (internal hemorrhoids that do notprolapse). Recommendations: - Discharge patient to home. - Resume previous diet. - Continue present medications. - Repeat colonoscopy in 5 years for surveillance. - Return to GI office in 3 months. - Patient has a contact number available for emergencies. The signs and symptoms of potential delayed complications were discussed with thepatient. Return to normal activities tomorrow. Writtendischarge instructions were provided to the patient. Procedure Code(s): --- Professional --- 49053, Colonoscopy, flexible; with biopsy, single or multiple --- Technical --- 34094, Colonoscopy, flexible; with biopsy, single or multiple Diagnosis Code(s): --- Professional --- D12.2, Benign neoplasm of ascending colon K64.0, First degree hemorrhoids D50.0, Iron deficiency anemia secondary to bloodloss (chronic) K57.30, Diverticulosis of large intestine without perforation or abscess without bleeding --- Technical --- D12.2, Benign neoplasm of ascending colon K64.0, First degree hemorrhoids D50.0, Iron deficiency anemia secondary to bloodloss (chronic) K57.30, Diverticulosis of large intestine without perforation or abscess without bleeding CPT copyright 2018 [employer]. All rights reserved. The codes documented in this report are preliminary and upon automobile brakes bonder reviewmay be revised to meet current compliance requirements. Mc Grant Jr., DO Mc Grant DO 07/31/2022 7:55:48 AM This report has been signed electronically. Number of Addenda: 0 Note Initiated On: 07/31/2022 7:19 AM IMPRESSION: Impression: - Two 3 to 4 mm polyps in the ascending colon,removed with a cold biopsy forceps. Resected andretrieved. - Diverticulosis in the sigmoid colon. - Non-bleeding internal hemorrhoids. Mc Grant DO ENDOSCOPY PROCEDURE ORDER J LUIS Final Result from Last 3 Months or Most Recently Relevant to Health Maintenance Insurance [employer] [facility] Advance Directives * Full Code (Latest Code Status on File) Date Activated Date Inactivated Comments 07/23/2022 5:34 PM 07/25/2022 3:59 PM Care Teams Television Inspector Relationship Specialty Start Date End Date Trevor Rolon DO [address] [facility] [address] [place] [id number] PCP - General Lucy Christopher DO [address] [place], [place] [id number] Consulting Physician Oncology 10/17/24"
--- OUTSIDE RECORDS SUMMARY | 2025-01-02 18:14 | XMS_ITS | Encounter Summary ---
Author Organization [facility] nter Address [address] [place] [address] Care Team Providers Care Machinery Erector Name Role Phone Trevor Rolon DO Primary Care Provider Lucy Christopher DO Unavailable Encounter Details Date Type Department Care Team (Late st Contact Info) Description 12/10/2022 Orders Only [facility] NEUROLOGY PRACTICE [address], 8th [place] [address] Lupe Villalta, ELECTRICAL PANEL BUILDER [address] [place] [address] Social History Tobacco Use Types [...] How often do you attend chur or sikh services? More than 4 times per year 07/24/2022 Do you belong to any clubs o r organizations such as mu-ism groups, unions, fraternal or athletic groups, or [...] Recorded Patient Health Questionnaire-2 Score 0 07/24/2022 [facility] [place] of Occupat ional Health - Occupational Stress [...] place to sleep or slept in a long-term (including now)? No 07/24/2022 Comments No Sex [...] suspected to have Coronavirus/COVID-19? No / Unsure 12/09/2022 10:45 AM EDT documented as of this encounter Plan of Treatment Upcoming Encounters Date Type Department Care Team (Late st Contact Info) Description 01/22/2025 12:00 PM EDT Office Visit [facility] [address], 8th [place] [address] Ben Knox MD [address] [place] [address] 01/22/2025 2:00 PM EDT Office Visit [facility] RHEUMATOLOGY PRACTICE [address], 8th Floor [place] [address] Suman Treviño MD [address] [place] [address] 01/24/2025 1:00 PM EDT Office Visit [facility] SLEEP LAB PRACTICE [address], [place] [address] Demario Silva DO [address] [facility] [place] [address] 02/15/2025 1:20 PM EDT Appointment [facility] MAMMOGRAPHY SERVICES BLDG D [address], Bld[place] [facility] [place] [address] 02/27/2025 1:00 PM EDT Office Visit [facility] ORTHOPEDIC PODIATRY PRACTICE [address], [address] [facility] [place] [address] Alexandr Zarate, OLLIE [address] [place] [address] 02/28/2025 1:45 PM EDT Office Visit [facility] [address], 10th [place] [address] Lucy Christopher DO [address] [place] [place] [address] 03/19/2025 1:15 PM EDT Office Visit [facility] GASTROENTEROLOGY PRACTICE [address], 2nd [place] [address] 08/16/2025 10:00 AM EST Office Visit [facility] ENDOCRINOLOGY PRACTICE [address], [address] [facility] [place] [address] Brigitte Mahoney, CLAU [address] [place] [place] [address] 12/13/2025 11:00 AM EDT Office Visit [facility] [address], 7th [place] [address] Janice Woodward, ELECTRICAL PANEL BUILDER [address] [place] [address] documented as of this encounter Visit Diagnoses Not on filedocumented in this encounter Additional Health Concerns Assessment Noted Time PHQ-9 Depression Total Score: 0 07/24/19 23 3:00 PM EST documented as of this encounter Care Teams Machinery Erector Relationship Specialty Start Date End Date Trevor Rolon DO [address] [facility] [address] [place] [address] PCP - General Lucy Christopher DO [address] [place] [address] Consulting Physician Oncology 10/17/24 documented as of this encounter
--- OUTSIDE RECORDS SUMMARY | 2025-01-02 18:14 | XMS_ITS | Encounter Summary ---
Author Organization [facility] nter Address [address] [place] [address] Care Team Providers Care Truck Driver Helper Name Role Phone Trevor Rolon DO Primary Care Provider Lucy Christopher DO Unavailable Encounter Details Date Type Department Care Team (Late st Contact Info) Description 12/29/2022 Orders Only [facility] DIABETES EDUCATION [address], 2nd [place] [address] Brigitte Mahoney NP [address] [place] [address] Social History Tobacco Use Types [...] How often do you attend chur or hinduism services? More than 4 times per year 07/24/2022 Do you belong to any clubs o r organizations such as nondenominational groups, unions, fraternal or athletic groups, or [...] Recorded Patient Health Questionnaire-2 Score 0 07/24/2022 [facility] [place] of Occupat ional Health - Occupational Stress [...] place to sleep or slept in a chcf (including now)? No 07/24/2022 Comments No Sex [...] suspected to have Coronavirus/COVID-19? No / Unsure 12/18/2022 10:48 AM EDT documented as of this encounter Plan of Treatment Upcoming Encounters Date Type Department Care Team (Late st Contact Info) Description 01/22/2025 12:00 PM EDT Office Visit [facility]UROLOG[facility] [address], [address] [place] [address] Ben Knox MD [address] [place] [address] 01/22/2025 2:00 PM EDT Office Visit [facility] RHEUMATOLOGY PRACTICE [address], 8th [place] [address] Suman Treviño MD [address] Katie [place] [address] 01/24/2025 1:00 PM EDT Office Visit [facility] SLEEP LAB PRACT[facility] [address], [place] [address] Demario Silva DO [address] [place] [address] 02/15/2025 1:20 PM EDT Appointment [facility] MAMMOGRAPHY SERVICES BL D [address], [place] [address] 02/27/2025 1:00 PM EDT Office Visit [facility] ORTHOPEDIC PODIATRY PRACTICE [address], 6th [place] [address] Alexandr Zarate DPM [address] [facility] [place] [id number] 02/28/2025 1:45 PM EDT Office Visit [facility] [address], 10th [place] [address] Lucy Christopher DO [address] [place] [address] 03/19/2025 1:15 PM EDT Office Visit [facility] GASTROENTEROLOGY PRACTICE [address], 2nd [place] [address] 08/16/2025 10:00 AM EST Office Visit [facility] ENDOCRINOLOGY PRACTICE [address], 8th [place] [address] Brigitte Mahoney, CLAU [address] [place] [address] 12/13/2025 11:00 AM EDT Office Visit [facility] [address], [address] [place] [address] Janice Woodward, WOOL HAT FORMING MACHINE TENDER [address] [place] [address] documented as of this encounter Visit Diagnoses Not on filedocumented in this encounter Additional Health Concerns Assessment Noted Time PHQ-9 Depression Total Score: 0 07/24/19 23 3:00 PM EST documented as of this encounter Care Teams Truck Driver Helper Relationship Specialty Start Date End Date Trevor Rolon DO [address] [facility] [address] [place] [address] PCP - General Lucy Christopher DO [address] [place] [place] [phone] Consulting Physician Oncology 10/17/24 documented as of this encounter
--- OUTSIDE RECORDS SUMMARY | 2025-01-02 18:14 | XMS_ITS | Encounter Summary ---
Author Organization [facility] nter Address [address] [place] [address] Care Team Providers Care Silk Blocker Name Role Phone Trevor Rolon DO Primary Care Provider Lucy Christopher DO Unavailable Reason for Visit * Reason Comments Med Refill Encounter Details Date Type Department Care Team (Late st Contact Info) Description 10/06/[address] [facility] NEUROLOGY PRACTICE [address], 8th [place] [address] Lupe Villalta, PARTS ROOM ASSISTANT [address] [place] [address] Social History Tobacco Use Types [...] week 07/24/2022 How often do you attend [facility] or jewish services? More than 4 times per year 07/24/2022 Do you belong to any clubs o r organizations such as latter day groups, unions, fraternal or athletic groups, or [...] Recorded Patient Health Questionnaire-2 Score 0 09/28/2023 [facility] of Occupat ional Health - Occupational [...] PRACTICE [address], 8th [place] [address] Ben Knox MD [address] [facility] [place] [address] 01/22/2025 2:00 PM EDT Office Visit [facility] RHEUMATOLOGY PRACTICE [address], 8th [place] [address] Suman Treviño MD [address] [place] [address] 01/24/2025 1:00 PM EDT Office Visit [facility] SLEEP LAB PRACTICE [address] [facility] [place] [address] Demario Silva DO [address] [place] [id number] 02/15/2025 1:[address] [facility] MAMMOGRAPHY SERVICES [facility] D [address], [facility] [place] [address] 02/27/2025 1:00 PM EDT Office Visit [facility] ORTHOPEDIC PODIATRY PRACTICE [address], 6th [place] [address] Alexandr Zarate DPM [address] [facility] [place] [id number] 02/28/2025 1:45 PM EDT Office Visit [facility] [address], 10th [place] [address] Lucy Christopher DO [address] [facility] [place] [address] 03/19/2025 1:15 PM EDT Office Visit [facility] [address], 2nd [place] [address] 08/16/2025 10:00 AM EST Office Visit [facility] ENDOCRINOLOGY PRACTICE [address], 8th [place] [address] Brigitte Mahoney, CLAU [address] d[address] [place] [address] 12/13/2025 11:00 AM EDT Office Visit [facility] [address], 7th [place] [address] Janice Woodward, PARTS ROOM ASSISTANT [address] [place] [address] documented as of this encounter Visit Diagnoses Not on filedocumented in this encounter Additional Health Concerns Assessment Noted Time PHQ-9 Depression Total Score: 0 07/24/19 23 3:00 PM EST documented as of this encounter Care Teams Silk Blocker Relationship Specialty Start Date End Date Trevor Rolon DO [address] [facility] [address] [place] [address] PCP - General Lucy Christopher DO [address] [place] [address] Consulting Physician Oncology 10/17/24 documented as of this encounter
--- OUTSIDE RECORDS SUMMARY | 2025-01-02 18:14 | XMS_ITS | Encounter Summary ---
Author Organization [facility] nter Address [address] [place] [address] Care Team Providers Care Lead Athlete Name Role Phone Trevor Rolon DO Primary Care Provider Lucy Christopher DO Unavailable Encounter Details Date Type Department Care Team (Late st Contact Info) Description 10/06/2023 Orders Only [facility] NEUROLOGY PRACTICE [facility] [address], [address] [place] [address] Lupe Villalta, STRUCTURAL STEEL DETAILER [address] [place] [address] Social History Tobacco Use Types [...] week 07/24/2022 How often do you attend [facility] or mormon services? More than 4 times per year 07/24/2022 Do you belong to any clubs o r organizations such as judaism groups, unions, fraternal or athletic groups, or [...] Recorded Patient Health Questionnaire-2 Score 0 09/28/2023 [facility] [place] of Occupat ional Health - Occupational Stress [...] PRACTICE [address], 8th [place] [address] Ben Knox MD [address] [place] [address] 01/22/2025 2:00 PM EDT Office Visit [facility] RHEUMATOLOGY PRACTICE [address], 8th [place] [address] Suman Treviño MD [address] [place] [address] 01/24/2025 1:00 PM EDT Office Visit [facility] SLEEP LAB PRACTICE [address] [facility] [place] [address] Demario Silva DO [address] [place] [address] 02/15/2025 1:20 PM EDT Appointment [facility] MAMMOGRAPHY SERVICES [facility] D [address], [facility] [place] [address] 02/27/2025 1:00 PM EDT Office Visit [facility] ORTHOPEDIC PODIATRY PRACTICE [address], 6th [place] [address] Alexandr Zarate DPM [address] [facility] [place] [phone] 02/28/2025 1:45 PM EDT Office Visit [facility] ONCOLOGY PRACTICE [address], 10th [place] [address] Lucy Christopher DO [address] [facility] [place] [address] 03/19/2025 1:15 PM EDT Office Visit [facility] GASTROENTEROLOGY PRACTICE [address], 2nd [place] [address] 08/16/2025 10:00 AM EST Office Visit [facility] ENDOCRINOLOGY PRACTICE [address], 8th [place] [address] Brigitte Mahoney, CLAU [address] d[address] [place] [address] 12/13/2025 11:00 AM EDT Office Visit [facility] OBGYN PRACTICE [address], 7th [place] [address] Janice Woodward, STRUCTURAL STEEL DETAILER [address] [place] [address] documented as of this encounter Visit Diagnoses Not on filedocumented in this encounter Additional Health Concerns Assessment Noted Time PHQ-9 Depression Total Score: 0 07/24/19 23 3:00 PM EST documented as of this encounter Care Teams Lead Athlete Relationship Specialty Start Date End Date Trevor Rolon DO [address] [facility] [address] [place] [address] PCP - General Lucy Christopher DO [address] [place] [address] Consulting Physician Oncology 10/17/24 documented as of this encounter
--- OUTSIDE RECORDS SUMMARY | 2025-01-02 18:14 | XMS_ITS | Encounter Summary ---
Author Organization [facility] nter Address [address] [place] [address] Care Team Providers Care Conference Center Manager Name Role Phone Trevor Rolon DO Primary Care Provider Lucy Christopher DO Unavailable Reason for Visit * Reason Comments Med Refill Encounter Details Date Type Department Care Team (Late st Contact Info) Description 07/06/2024 Refill [facility] ENDOCRINOLOGY PRACTICE [address], 8th [place] [address] Brigitte Mahoney, CLAU [address] [place] [address] Social History Tobacco Use Types [...] How often do you attend [facility] or scientology services? More than 4 times per year [...] Recorded Patient Health Questionnaire-2 Score 0 09/28/2023 [facility] [place] of Occupat ional Health - Occupational Stress [...] Telephone Encounter - Brigitte Mahoney NP - 07/06/2024 11:42 AM EST Needs a visit first documented in this encounter Plan of Treatment Upcoming Encounters Date Type Department Care Team (Late st Contact Info) Description 01/22/2025 12:00 PM EDT Office Visit [facility] [address], 8th [place] [address] Ben Knox MD [address] [place] [phone] 01/22/2025 2:00 PM EDT Office Visit [facility] [address], 8th [place] [address] Suman Treviño MD [address] [facility]. Katie [facility] [place] [address] 01/24/2025 1:00 PM EDT Office Visit [facility] SLEEP LAB PRACTICE [address], [place] [address] Demario Silva DO [address] [place] [id number] 02/15/2025 1:20 PM EDT Appointment [facility] MAMMOGRAPHY SERVICES [facility] D [address], [facility] [place] [address] 02/27/2025 1:00 PM EDT Office Visit [facility] ORTHOPEDIC PODIATRY PRACTICE [address], 6th [place] [address] Alexandr Zarate DPM [address] [facility] [place] [phone] 02/28/2025 1:45 PM EDT Office Visit [facility] [address], 10th [place] [address] Lucy Christopher DO [address] [facility] [place] [address] 03/19/2025 1:15 PM EDT Office Visit [facility] [address], 2nd [place] [address] 08/16/2025 10:00 AM EST Office Visit [facility]IN[facility] [address], 8th [place] [address] Brigitte Mahoney, CLAU [address] [place] [address] 12/13/2025 11:00 AM EDT Office Visit [facility] [address], 7th [place] [address] Janice Woodward, CLAU [address] [place] [address] documented as of this encounter Visit Diagnoses Not on filedocumented in this encounter Additional Health Concerns Assessment Noted Time PHQ-9 Depression Total Score: 0 07/24/19 23 3:00 PM EST documented as of this encounter Care Teams Conference Center Manager Relationship Specialty Start Date End Date Trevor Rolon DO [address] [facility] [address] [place] [address] PCP - General Lucy Christopher DO [address] [place] [facility] Consulting Physician Oncology 10/17/24 documented as of this encounter
--- OUTSIDE RECORDS SUMMARY | 2025-01-02 18:14 | XMS_ITS | Encounter Summary ---
Author Organization [facility] nter Address [address] [place] [address] Care Team Providers Care Security Analyst Name Role Phone Trevor Rolon DO Primary Care Provider Lucy Christopher DO Unavailable Reason for Visit * Reason Comments Med Refill Encounter Details Date Type Department Care Team (Late st Contact Info) Description 09/14/2022 Refill [facility] NEUROLOGY PRACTICE [address], 8th [place] [address] Lupe Villalta, CNC LATHE MACHINE OPERATOR [address] [place] [address] Other specified diabetes mellitus with diabetic neuropathy, unspecified Social History Tobacco Use Types Packs/Day Years [...] often do you attend [facility] or mormonism services? More than 4 times per year 07/24/2022 Do you belong to any clubs o r organizations such as temple groups, unions, fraternal or athletic groups, or [...] Recorded Patient Health Questionnaire-2 Score 0 07/24/2022 [facility] [place] of Occupat ional Health - Occupational Stress [...] a usp (including now)? No 07/24/2022 Comments Unknown Sex and Gender Information Value [...] suspected to have Coronavirus/COVID-19? No / Unsure 09/10/2022 5:20 PM EST documented as of this encounter Miscellaneous Notes * Telephone Encounter - Lupe Villalta NP - 09/16/2022 1:18 PM EST Approving, but needs appt for additional refills. documented in this encounter Plan of Treatment Upcoming Encounters Date Type Department Care Team (Late st Contact Info) Description 01/22/2025 12:00 PM EDT Office Visit [facility] NEUR[facility]Y PRACTICE [address], 8th [place] [address] Ben Knox MD [address] [facility] [place] [address] 01/22/2025 2:00 PM EDT Office Visit [facility]HEUMAT[facility] [address], 8th [place] [address] Suman Treviño MD [address] [facility]. [place] [address] 01/24/2025 1:00 PM EDT Office Visit [facility] SLEEP LAB PRACTICE [address] [place] [address] Demario Silva DO [address] [place] [address] 02/15/2025 1:20 PM EDT Appointment [facility] MAMMOGRAPHY SERVICES [facility] D [address], [facility] [place] [address] 02/27/2025 1:00 PM EDT Office Visit [facility] ORTHOPEDIC PODIATRY PRACTICE [address], 6th [place] [address] Alexandr Zarate DPM [address] [facility] [place] [address] 02/28/2025 1:45 PM EDT Office Visit [facility] ONCOLOGY [facility] [address], 10th [place] [address] Lucy Christopher DO [address] [facility] [place] [address] 03/19/2025 1:15 PM EDT Office Visit [facility] GASTROENTEROLOGY PRACTICE [address], 2nd [place] [address] 08/16/2025 10:00 AM EST Office Visit [facility] ENDOCRINOLOGY PRACTICE [address], 8th [place] [phone] Brigitte Mahoney NP [address] [place] [address] 12/13/2025 11:00 AM EDT Office Visit [facility] OBGYN PRACTICE [address], 7th [place] [address] Janice Woodward NP [address] [place] [phone] documented as of this encounter Visit Diagnoses Diagnosis Other specified diabetes mellitus with diabetic neuropathy, unspecified documented in this encounter Additional Health Concerns Assessment Noted Time PHQ-9 Depression Total Score: 0 07/24/19 3:00 PM EST documented as of this encounter Care Teams Security Analyst Relationship Specialty Start Date End Date Trevor Rolon DO [address] [facility] [address] [place] [phone] PCP - General Lucy Christopher DO [address] [place] [address] Consulting Physician Oncology 10/17/24 documented as of this encounter
--- OUTSIDE RECORDS SUMMARY | 2025-01-02 18:14 | XMS_ITS | Encounter Summary ---
Author Organization [facility] nter Address [address] [place] [address] Care Team Providers Care Ultrasound Technologist Sonographer Name Role Phone Trevor Rolon DO Primary Care Provider Lucy Christopher DO Unavailable Encounter Details Date Type Department Care Team (Latest Contact Info) Description 11/13/2024 Travel Social History Tobacco Use Types Packs/Day [...] often do you attend chur ch or episcopalian services? More than 4 times per year [...] Recorded Patient Health Questionnaire-2 Score 0 09/28/2023 [facility] of Occupat ional [facility] - Occupational Stress Questionnaire Answer Date Recorded [...] PRACTICE [address] , 8th [place] [address] Ben Knox MD [facility] [place] [address] 01/22/2025 2:00 PM EDT Office Visit [facility] RHEUMATOLOGY PRACTICE [address] 8th [place] [address] Suman Treviño MD [address] [place] [address]. [place] [address] 01/24/2025 1:00 PM EDT Office Visit [facility] SLEEP LAB PRACTICE [address] [facility] [place] [address] Demario Silva DO [address] [place] [address] 02/15/2025 1:20 PM EDT Appointment [facility] MAMMOGRAPHY SERVICES BL D [address], [facility] [place] [address] 02/27/2025 1:00 PM EDT Office Visit [facility] ORTHOPEDIC PODIATRY PRACTICE [address], 6th [place] [address] Alexandr Zarate DPM [address] [place] [address] 02/28/2025 1:45 PM EDT Office Visit [facility] ONCOLOGY PRACTICE [address], 10th [place] [address] Lucy Christopher DO [address] [facility] [place] [address] 03/19/2025 1:15 PM EDT Office Visit [facility] GASTROENTEROLOGY PRACTICE [address], 2nd [place] [address] 08/16/2025 10:00 AM EST Office Visit [facility] ENDOCRINOLOGY PRACTICE [address], 8th [place] [address] Brigitte Mahoney NP [address] [facility] [place] [address] 12/13/2025 11:00 AM EDT Office Visit [facility] O[facility] [address], 7th [place] [address] Janice Woodward NP [address] [place] [phone] documented as of this encounter Visit Diagnoses Not on filedocumented in this encounter Additional Health Concerns Assessment Noted Time PHQ-9 Depression Total Score: 0 07/24/19 23 3:00 PM EST documented as of this encounter Care Teams Ultrasound Technologist Sonographer Relationship Specialty Start Date End Date Trevor Rolon DO [address] [facility] [address] [place] [id number] PCP - General Lucy Christopher DO [address] [place] [address] [place] [address] Consulting Physician Oncology 10/17/24 documented as of this encounter
--- OUTSIDE RECORDS SUMMARY | 2025-01-02 18:14 | XMS_ITS | Encounter Summary ---
Author Organization [facility] nter Address [address] [place] [address] Care Team Providers Care Drafter Electronic Name Role Phone Trevor Rolon DO Primary Care Provider Lucy Christopher DO Unavailable Reason for Visit * Reason Comments Med Refill Encounter Details Date Type Department Care Team (Late st Contact Info) Description 09/29/2023 Refill [facility] NEUROLOGY PRACTICE [address], 8th [place] [address] Lupe Villalta, PULVERIZER [address] [place] [address] Social History Tobacco Use Types [...] week 07/24/2022 How often do you attend [facility] or scientology services? More than 4 times per year 07/24/2022 Do you belong to any clubs o r organizations such as anabaptism groups, unions, fraternal or athletic groups, or [...] Recorded Patient Health Questionnaire-2 Score 0 09/28/2023 [facility] [place] of Occupat ional Health - Occupational Stress [...] PRACTICE [address], 8th [place] [address] Ben Knox MD [address] [facility] [place] [address] 01/22/2025 2:00 PM EDT Office Visit [facility] RHEUMATOLOGY PRACTICE [address], 8th [place] [address] Suman Treviño MD [address] [facility]. [place] [address] 01/24/2025 1:00 PM EDT Office Visit [facility] SLEEP LAB PRACTICE [address] [facility] [place] [address] Demario Silva DO [address] [place] [phone] 02/15/2025 1:20 PM EDT Appointment [facility] MAMMOGRAPHY SERVICES [facility] D [address], [facility] [place] [address] 02/27/2025 1:00 PM EDT Office Visit [facility] ORTHOPEDIC PODIATRY PRACTICE [address], 6th [place] [address] Alexandr Zarate DPM [address] [facility] [place] [phone] 02/28/2025 1:45 PM EDT Office Visit [facility] [address], 10th [place] [address] Lucy Christopher DO [address] [facility] [place] [address] 03/19/2025 1:15 PM EDT Office Visit [facility] GASTROENTEROLOG[facility]ACT[facility] [address], 2nd [place] [address] 08/16/2025 10:00 AM EST Office Visit [facility] ENDOCRINOLOGY PRACTICE [address], 8th [place] [address] Brigitte Mahoney, CLAU [address] [place] [place] [address] 12/13/2025 11:00 AM EDT Office Visit [facility] O[facility] [address], 7th [place] [address] Janice Woodward, PULVERIZER [address] [place] [address] documented as of this encounter Visit Diagnoses Not on filedocumented in this encounter Additional Health Concerns Assessment Noted Time PHQ-9 Depression Total Score: 0 07/24/19 23 3:00 PM EST documented as of this encounter Care Teams Drafter Electronic Relationship Specialty Start Date End Date Trevor Rolon DO [address] [facility] [address] [place] [address] PCP - General Lucy Christopher DO [address] [place] [address] Consulting Physician Oncology 10/17/24 documented as of this encounter
--- OUTSIDE RECORDS SUMMARY | 2025-01-02 18:14 | XMS_ITS | Encounter Summary ---
Author Organization [facility] nter Address [address] [place] [address] Care Team Providers Care Manager Qa Name Role Phone Trevor Rolon DO Primary Care Provider Lucy Christopher DO Unavailable Reason for Visit * Reason Comments Med Refill Encounter Details Date Type Department Care Team (Late st Contact Info) Description 10/05/2022 Refill [facility] GASTROENTEROLOGY PRACTICE [address], 2nd [place] [address] Mc Grant DO [address] [place] [address] Encephalopathy, hepatic Social History Tobacco Use Types Packs/Day Years [...] week 07/24/2022 How often do you attend [facility] or uatsdin services? More than 4 times per year 07/24/2022 Do you belong to any clubs o r organizations such as scientology groups, unions, fraternal or athletic groups, or [...] Recorded Patient Health Questionnaire-2 Score 0 07/24/2022 [facility] [place] of Occupat ional Health - Occupational Stress [...] place to sleep or slept in a half-way (including now)? No 07/24/2022 Comments Unknown Sex [...] suspected to have Coronavirus/COVID-19? No / Unsure 09/23/2022 4:00 PM EDT documented as of this encounter Miscellaneous Notes * Telephone Encounter - Mc Grant DO - 10/13/2022 3:28 PM EDT Approving, but needs appt for additional refills. documented in this encounter Plan of Treatment Upcoming Encounters Date Type Department Care Team (Late st Contact Info) Description 01/22/2025 12:00 PM EDT Office Visit [facility] NEUROLOGY PRACTICE [address], 8th [place] [address] Ben Knox MD [address] [facility] [place] [address] 01/22/2025 2:00 PM EDT Office Visit [facility]HEUMAT[facility] [address], 8th [place] [address] Suman Treviño MD [address] [facility]. [place] [address] 01/24/2025 1:00 PM EDT Office Visit [facility] SLEEP LAB PRACTICE [address] [place] [address] Demario Silva DO [address] [place] [address] 02/15/2025 1:20 PM EDT Appointment [facility] MAMMOGRAPHY SERVICES [facility] D [address], [facility] [place] [address] 02/27/2025 1:00 PM EDT Office Visit [facility] ORTHOPEDIC PODIATRY PRACTICE [address], 6th [place] [address] Alexandr Zarate DPM [address] [facility] [place] [address] 02/28/2025 1:45 PM EDT Office Visit [facility] ONCOLOGY PRACTICE [address], 10th [place] [address] Lucy Christopher DO [address] [facility] [place] [address] 03/19/2025 1:15 PM EDT Office Visit [facility] GASTROENTEROLOGY PRACTICE [address], 2nd [place] [address] 08/16/2025 10:00 AM EST Office Visit [facility] ENDOCRINOLOGY PRACTICE [address], 8th [place] [address] Brigitte Mahoney NP [address] [place] [address] 12/13/2025 11:00 AM EDT Office Visit [facility] OBGYN PRACTICE [address], 7th [place] [address] Janice Woodward NP [address] [place] [phone] documented as of this encounter Visit Diagnoses Diagnosis Encephalopathy, hepatic Hepatic encephalopathy documented in this encounter Additional Health Concerns Assessment Noted Time PHQ-9 Depression Total Score: 0 07/24/19 23 3:00 PM EST documented as of this encounter Care Teams Manager Qa Relationship Specialty Start Date End Date Trevor Rolon DO [address] [facility] [address] [place] [address] PCP - General Lucy Christopher DO [address] [place] [address] Consulting Physician Oncology 10/17/24 documented as of this encounter
--- OUTSIDE RECORDS SUMMARY | 2025-01-02 18:14 | XMS_ITS | Encounter Summary ---
Author Organization [facility] nter Address [address] [place] [address] Care Team Providers Care Rn Peritoneal Dialysis Name Role Phone Trevor Rolon DO Primary Care Provider Lucy Christopher DO Unavailable Reason for Referral * Consultation (Routine) - Authorized Specialty Diagnoses / Procedures Referred By Truong bella Referred To Contact Rheumatology Diagnoses Psoriatic arthritis Procedures OR OFFICE/OUTPATIENT NEW SF MDM 15 MINUTES OR OFFICE/OUTPATIENT NEW LOW MDM 30 MINUTES OR OFFICE/OUTPATIENT NEW MODERATE MDM 45 MINUTES OR OFFICE/OUTPATIENT NEW HIGH MDM 60 MINUTES OR OFFICE/OUTPATIENT ESTABLISHED SF MDM 10 MIN OR OFFICE/OUTPATIENT ESTABLISHED LOW MDM 20 MIN OR OFFICE/OUTPATIENT ESTABLISHED MOD MDM 30 MIN OR OFFICE/OUTPATIENT ESTABLISHED HIGH MDM 40 MIN Laquita Corral PA [address] [facility] [address] [place] [id number] Phone: tel: fax: Suman Treviño MD [address] [place] [address] Phone: tel: fax: Referral ID Status Reason Start Date Expiration Date Visits Requested Visits Authorized [id number] Authorized Specialty Services Required 09/01/2024 09/01/2025 1 3 Encounter Details Date Type Department Care Team (Late st Contact Info) Description 09/01/2024 Community Orders [facility] [address] [place] [address] Laquita Corral PA [address] [facility] [address] [place] [address] Psoriatic arthritis (Primary Dx) Social History Tobacco Use Types [...] How often do you attend chur or taoist services? More than 4 times per year 07/24/2022 Do you belong to any clubs o r organizations such as sikhism groups, unions, fraternal or athletic groups, or [...] Recorded Patient Health Questionnaire-2 Score 0 09/28/2023 [facility] of Occupat ional Health - Occupational [...] NEUROLOGY PRACTICE [address], 8th [place] [address] Ben Knox MD [address] [place] [address] [place] [phone] 01/22/2025 2:00 PM EDT Office Visit [facility] RHEUMATOLOGY PRACTICE [address] 8th Floor [place] [phone] Suman Treviño MD [address] [facility] [place] [address] 01/24/2025 1:00 PM EDT Office Visit [facility]EP LAB [facility]ACT[facility] [address] [facility] [place] [phone] Demario Silva DO [address] [place] [address] 02/15/2025 1:20 PM EDT Appointment [facility] MAMMOGRAPHY SERVICES [facility] D [address] , [place] [address] 02/27/2025 1:00 PM EDT Office Visit [facility] ORTHOPEDIC PODIATRY PRACTICE [address] 6th [place] [address] Alexandr Zarate DPM [address] [facility] [place] [phone] 02/28/2025 1:45 PM EDT Office Visit [facility] ONCOLOGY PRACTICE [address], 10th Floor Clinic [place] [phone] Lucy Christopher DO [address] [place] [address] 03/19/2025 1:15 PM EDT Office Visit [facility] GASTROENTEROLOGY PRACTICE [address], 2nd Floor Clinic [place] [phone] 08/16/2025 10:00 AM EST Office Visit [facility] ENDOCRINOLOGY PRACTICE [address], 8th Floor [place] [phone] Brigitte Mahoney NP [address] [place] [phone] 12/13/2025 11:00 AM EDT Office Visit [facility] OBGYN PRACTICE [address], 7th Floor [place] [phone] Janice Woodward NP [address] [place] [address] Scheduled Referrals Name Type Priority Associated Diagnoses Order Schedule Ambulatory referral/appointment with Rheumatology Outpatient Referral Routine Psoriatic arthritis Expected: 09/01/2024 (Approximate), Expires: 09/01/2025 documented as of this encounter Visit Diagnoses Diagnosis Psoriatic arthritis- Primary Psoriatic arthropathy documented in this encounter Additional Health Concerns Assessment Noted Time PHQ-9 Depression Total Score: 0 07/24/19 23 3:00 PM EST documented as of this encounter Care Teams Rn Peritoneal Dialysis Relationship Specialty Start Date End Date Trevor Rolon DO [address] [facility] [address] [place] [phone] PCP - General Lucy Christopher DO [address] [facility] [place] [address] Consulting Physician Oncology 10/17/24 documented as of this encounter
--- OUTSIDE RECORDS SUMMARY | 2025-01-02 18:14 | XMS_ITS | Encounter Summary ---
Author Organization [facility] nter Address [address] [place] [address] Care Team Providers Care Curing Supervisor Name Role Phone Trevor Rolon DO Primary Care Provider Lucy Christopher DO Unavailable Encounter Details Date Type Department Care Team (Latest Contact Info) Description 12/14/2024 Travel Social History Tobacco Use Types Packs/Day [...] any clubs o r organizations such as confucianist groups, unions, fraternal or athletic groups, or [...] Recorded Patient Health Questionnaire-2 Score 0 09/28/2023 [facility] of Occupat ional [facility] - Occupational Stress Questionnaire Answer Date [...] [facility] NEUROLOGY PRACTICE [address] 8th [place] [address] Ben Knox MD [facility] [place] [facility] [address] 01/22/2025 2:00 PM EDT Office Visit [facility] RHEUMATOLOGY PRACTICE [address] , 8th [place] [address] Suman Treviño MD [address] [place] [address]. [place] [address] 01/24/2025 1:00 PM EDT Office Visit [facility] SLEEP LAB PRACTICE [address] [place] Ramsey [facility] [place] [address] Dmeario Silva DO [address] [place] [address] 02/15/2025 1:20 PM EDT Appointment [facility] MAMMOGRAPHY SERVICES BL D [address], [facility] [place] [address] 02/27/2025 1:00 PM EDT Office Visit [facility] ORTHOPEDIC PODIATRY PRACTICE [address], 6th [place] [address] Alexandr Zarate DPM [address] [place] [address] 02/28/2025 1:45 PM EDT Office Visit [facility] ONCOLOGY PRACTICE [address], 10th [place] [address] Lucy Christopher DO [address] [facility] [place] [address] 03/19/2025 1:15 PM EDT Office Visit [facility] GASTROENTEROLOGY PRACTICE [address], 2nd [place] [address] 08/16/2025 10:00 AM EST Office Visit [facility] ENDOCRINOLOGY PRACTICE [address], 8th [place] [address] Brigitte Mahoney NP [address] [facility] [place] [address] 12/13/2025 11:00 AM EDT Office Visit [facility] [address], 7th [place] [address] Janice Woodward NP [address] [place] [phone] documented as of this encounter Visit Diagnoses Not on filedocumented in this encounter Additional Health Concerns Assessment Noted Time PHQ-9 Depression Total Score: 0 07/24/19 23 3:00 PM EST documented as of this encounter Care Teams Curing Supervisor Relationship Specialty Start Date End Date Trevor Rolon DO [address] [facility] [address] [place] [phone] PCP - General Lucy Christopher DO [address] [place] [address] [place] [address] Consulting Physician Oncology 10/17/24 documented as of this encounter
--- OUTSIDE RECORDS SUMMARY | 2025-01-02 18:14 | XMS_ITS | Encounter Summary ---
Author Organization [facility] nter Address [address] [place] [address] Care Team Providers Care Belt Dresser Name Role Phone Trevor Rolon DO Primary Care Provider Lucy Christopher DO Unavailable Reason for Visit * Reason Comments Med Refill Encounter Details Date Type Department Care Team (Late st Contact Info) Description 10/01/2023 Refill [facility] NEUROLOGY PRACTICE [address], 8th [place] [address] Lupe Villalta, NUMERICAL CONTROL MACHINE OPERATOR [address] [place] [address] Social History Tobacco Use Types [...] week 07/24/2022 How often do you attend [facility] or alevism services? More than 4 times per year 07/24/2022 Do you belong to any clubs o r organizations such as tenriism groups, unions, fraternal or athletic groups, or [...] Recorded Patient Health Questionnaire-2 Score 0 09/28/2023 [facility] [place] of Occupat ional Health - Occupational Stress [...] place to sleep or slept in a detention (including now)? No 07/24/2022 Comments No Sex [...] PRACTICE [address], 8th [place] [address] Ben Knox MD [address] [facility] [place] [address] 01/22/2025 2:00 PM EDT Office Visit [facility] RHEUMATOLOGY PRACTICE [address], 8th [place] [address] Suman Treviño MD [address] [place]. [place] [address] 01/24/2025 1:00 PM EDT Office Visit [facility] SLEEP LAB PRACTICE [address] [facility] [place] [address] Demario Silva DO [address] [place] [phone] 02/15/2025 1:20 PM EDT Appointment [facility] MAMMOGRAPHY SERVICES [facility] D [address], [facility] [place] [address] 02/27/2025 1:00 PM EDT Office Visit [facility] ORTHOPEDIC PODIATRY PRACTICE [address], 6th [place] [address] Alexandr Zarate DPM [address] [facility] [place] [phone] 02/28/2025 1:45 PM EDT Office Visit [facility] [address], 10th [place] [address] Lucy Christopher DO [address] [facility] [place] [address] 03/19/2025 1:15 PM EDT Office Visit [facility] GASTROENTEROLOGY PRACTICE [address], 2nd [place] [address] 08/16/2025 10:00 AM EST Office Visit [facility] ENDOCRINOLOGY PRACTICE [address], 8th [place] [address] Brigitte Mahoney, CLAU [address] dg [place] [address] 12/13/2025 11:00 AM EDT Office Visit [facility] OBGYN [facility] [address], 7th [place] [address] Janice Woodward, NUMERICAL CONTROL MACHINE OPERATOR [address] [place] [address] documented as of this encounter Visit Diagnoses Not on filedocumented in this encounter Additional Health Concerns Assessment Noted Time PHQ-9 Depression Total Score: 0 07/24/19 23 3:00 PM EST documented as of this encounter Care Teams Belt Dresser Relationship Specialty Start Date End Date Trevor Rolon DO [address] [facility] [address] [place] [address] PCP - General Lucy Christopher DO [address] [place] [address] Consulting Physician Oncology 10/17/24 documented as of this encounter
--- OUTSIDE RECORDS SUMMARY | 2025-01-02 18:14 | XMS_ITS | Encounter Summary ---
Author Organization [facility] nter Address [address] [place] [address] Care Team Providers Care Sagger Soak Name Role Phone Trevor Rolon DO Primary Care Provider Lucy Christopher DO Unavailable Encounter Details Date Type Department Care Team (Late st Contact Info) Description 07/11/2024 Orders Only [facility] ENDOCRINOLOGY PRACTICE [address], 8th [place] [address] Brigitte Mahoney NP [address] [place] [address] Social History Tobacco Use Types [...] week 07/24/2022 How often do you attend [facility] or voodoo services? More than 4 times per year [...] Recorded Patient Health Questionnaire-2 Score 0 09/28/2023 [facility] [place] [facility] - Occupational Stress Questionnaire [...] place to sleep or slept in a snf (including now)? No 07/24/2022 Comments No Sex [...] PRACTICE [address], 8th [place] [address] Ben Knox MD [address] [place] [address] 01/22/2025 2:00 PM EDT Office Visit [facility] RHEUMATOLOGY PRACTICE [address], 8th [place] [address] Suman Treviño MD [address] jak[address] [place] [address] 01/24/2025 1:00 PM EDT Office Visit [facility] SLEEP LAB PRACTICE [address], Tommy [facility] Demario Silva DO [address] [place] [phone] 02/15/2025 1:20 PM EDT Appointment [facility] MAMMOGRAPHY SERVICES BL D [address], [facility] [place] [address] 02/27/2025 1:00 PM EDT Office Visit [facility] ORTHOPEDIC PODIATRY PRACTICE [address], 6th [place] [address] Alexandr Zarate, OLLIE [address] [facility] [place] [phone] 02/28/2025 1:45 PM EDT Office Visit [facility] ONCOLOGY PRACTICE [address], 10th [place] [address] Lucy Christopher, DO [address] [facility] [place] [address] 03/19/2025 1:15 PM EDT Office Visit [facility] GASTROENTEROLOGY PRACTICE [address], 2nd [place] [address] 08/16/2025 10:00 AM EST Office Visit [facility] ENDOCRINOLOGY PRACTICE [address], 8th [place] [address] Brigitte Mahoney, CLAU [address] dg [place] [phone] 12/13/2025 11:00 AM EDT Office Visit [facility] OBGYN PRACTICE [address], 7th [place] [phone] Janice Woodward, ASSISTANT GM OF CONTENT & DELIVERY [address] [place] [address] documented as of this encounter Visit Diagnoses Not on filedocumented in this encounter Additional Health Concerns Assessment Noted Time PHQ-9 Depression Total Score: 0 07/24/19 23 3:00 PM EST documented as of this encounter Care Teams Sagger Soak Relationship Specialty Start Date End Date Trevor Rolon DO [address] [facility] [address] [place] [phone] PCP - General Lucy Christopher DO [address] [place] [phone] Consulting Physician Oncology 10/17/24 documented as of this encounter
--- OUTSIDE RECORDS SUMMARY | 2025-01-02 18:15 | XMS_ITS | Encounter Summary ---
Author Organization [facility] nter Address [address] [place] [address] Care Team Providers Care Vehicle Body Maker Name Role Phone Trevor Rolon DO Primary Care Provider Lucy Christopher DO Unavailable Reason for Referral * US (Routine) - Closed Specialty Diagnoses / Procedures Referred By Truong bella Referred To Contact Radiology Diagnoses Cirrhosis of liver with ascites, unspecified hepatic cirrhosis type GAVE (gastric antral vascular ectasia) Abnormal tumor markers Procedures US liver doppler OR DUP-SCAN ARTL [place] ABDL/PEL/SCROT&/RPR ORGN LMT Aubrie Hyde NP [address] [place] [address] Phone: tel: fax: [facility] ULTRASOUND [address], 2nd [place] [address] Phone: tel: fax: Referral ID Status Reason Start Date Expiration Date V isits Requested Visits Authorized [id number] Closed Specialty Services Required 02/21/2024 02/20/2025 1 1 Encounter Details Date Type Department Care Team (Latest Contact Info) Description 02/21/2024 Orders Only [facility] GASTROENTEROLOGY PRACTICE [address], 2nd Floor Clinic [place] [address] Aubrie Hyde NP [address] Bldg [place] [address] Cirrhosis of liver with ascites, unspecified hepatic cirrhosis type (Primary Dx); GAVE (gastric antral vascular ectasia); Abnormal tumor markers Social History Tobacco Use Types Packs/Day Years [...] any clubs o r organizations such as alevism groups, unions, fraternal or athletic groups, or [...] Recorded Patient Health Questionnaire-2 Score 0 09/28/2023 [facility] [place] of Occupat ional Health - Occupational Stress [...] Description 01/22/2025 12:00 PM EDT Office Visit [facility] NEUROLOGY PRACTICE [address] 8th [place] [address] Ben Knox MD [address] [place], [place] [phone] 01/22/2025 2:00 PM EDT Office Visit [facility] RHEUMATOLOGY PRACTICE [address] 8th [place] [address] Suman Treviño MD [address] [facility]. [place] [phone] 01/24/2025 1:00 PM EDT Office Visit [facility] SLEEP LAB [facility]ACT[facility] [place] [phone] Demario Silva DO [address] [place] [address] 02/15/2025 1:20 PM EDT Appointment [facility] MAMMOGRAPHY SERVICES [facility] D [address] , [facility] [place] [address] 02/27/2025 1:00 PM EDT Office Visit [facility] ORTHOPEDIC PODIATRY PRACTICE [address] 6th [place] [address] Alexandr Zarate DPM [address] [facility] [place] [address] 02/28/2025 1:45 PM EDT Office Visit [facility] ONCOLOGY PRACTICE [address], 10th [place] [address] Lucy Christopher DO [address] [place], [place] [phone] 03/19/2025 1:15 PM EDT Office Visit [facility] GASTROENTEROLOGY PRACTICE [address], 2nd [place] [address] 08/16/2025 10:00 AM EST Office Visit [facility] ENDOCRINOLOGY PRACTICE [address], 8th [place] [phone] Brigitte Mahoney NP [address] [place] [address] 12/13/2025 11:00 AM EDT Office Visit [facility] OBGYN PRACTICE [address], 7th [place] [address] Janice Woodward NP [address] [place], [place] [phone] documented as of this encounter Results * US liver doppler (04/28/2024 10:07 AM EDT) Anatomical Region Laterality Modality Liver Ultrasound 04/28/2024 9:26 AM EDT Impressions 04/29/2024 10:41 AM EDT 1. Cirrhotic liver morphology. No sonographic evidence of mass. 2. Surgically absent gallbladder. 3. Patent hepatic vasculature with correct direction of flow. Thank you for allowing us to assist in the care of this patient. Electronically signed by: Pierre Newton MD 04/29/2024 10:41 AM EDT RP Narrative 04/29/2024 10:41 AM EDT PROCEDURE: US ABDOMEN DOPPLER. HISTORY: Patient is a 53 year old female with cirrhosis. Previous cholecystectomy. COMPARISON: CT A/P 10/24/2023, US abdominal hepatic 07/01/2023. TECHNIQUE: Two-dimensional grayscale ultrasound of the limited abdomen was performed. Color and spectral Doppler evaluation were also performed. FINDINGS: The liver demonstrates a nodular, coarsened echotexture without intrahepatic biliary dilatation. No masses are visualized. The main portal vein, hepatic veins and hepatic artery are patent with correct direction of flow. The gallbladder is surgically absent. The common bile duct measures 0.5 cm. There is no evidence of abdominal aortic aneurysm within the visualized segments. IVC is unremarkable. Procedure Note Pierre Newton II, MD - 04/29/2024 PROCEDURE: US ABDOMEN DOPPLER. HISTORY: Patient is a 53 year old female with cirrhosis. Previouscholecystectomy. COMPARISON: CT A/P 10/24/2023, US abdominal hepatic 07/01/2023. TECHNIQUE: Two-dimensional grayscale ultrasound of the limited abdomen wasperformed. Color and spectral Doppler evaluation were also performed. FINDINGS: The liver demonstrates a nodular, coarsened echotexture withoutintrahepatic biliary dilatation. No masses are visualized. The main portalvein, hepatic veins and hepatic artery are patent with correct directionof flow. The gallbladder is surgically absent. The common bile duct measures 0.5cm. There is no evidence of abdominal aortic aneurysm within the visualizedsegments. IVC is unremarkable. IMPRESSION: 1. Cirrhotic liver morphology. No sonographic evidence of mass. 2. Surgically absent gallbladder. 3. Patent hepatic vasculature with correct direction of flow. Thank you for allowing us to assist in the care of this patient. Electronically signed by: Pierre Newton MD 04/29/2024 10:41 AM EDT RPWorkstation: [id number] us Aubrie Hyde NP IMG US PROCEDURES Final Result * AFP tumor marker (04/28/2024 9:32 AM EDT) AFP Tumor Marker 6.5 0.0 - 9.2 ng/mL 04/29/2024 4:06 AM EDT [facility] ([facility]) Comment: [facility] Electrochemiluminescence Immunoassay (ECLIA) Values obtained with different assay methods or kits cannot be used interchangeably. Results cannot be interpreted as absolute evidence of the presence or absence of malignant disease. This test is not interpretable in females. Blood Venous blood specimen / Unknown Venipuncture / Unknown 04/28/2024 9:32 AM EDT 04/28/2024 9:32 AM EDT Narrative [facility]) - 04/29/2024 4:06 AM EDT Performed at: 01 - [address] [id number] Electro Tech: Raphael Edwards PhD, Phone: [phone] us Aubrie Hyde ELECTRIC MULE DRIVER LAB BLOOD ORDERABLES Final Resul t Performing Organization Address City/[facility]/ZIP Co de Phone Number [facility]) [facility] [place] [address], [place] [phone] * (ABNORMAL) Protime-INR (04/28/2024 9:32 AM EDT) Protime 12.9(H) 9.2 - 12.5 seconds LAB COAGULATION METHOD 04/28/2024 10:35 AM EDT [facility] INR 1.22(H) 0.84 - 1.18 LAB COAGULATION METHOD 04/28/2024 10:35 AM EDT [facility] Comment: The INR should only be used in stable anticoagulated patients. Recommended therapeutic ranges: Condition INR Prevention or treatment of DVT 2.0-3.0 Acute NM Prevention of Stroke 2.0-3.0 Prevention of recurrent NM 2.5-3.5 Atrial fibrillation Prevention of systemic embolism 2.0-3.0 Cardiac valve replacement (mechanical valves) 2.5-3.5 Blood Venous blood specimen / Unknown Venipuncture / Unknown 04/28/2024 9:32 AM EDT 04/28/2024 9:32 AM EDT us Aubrie November ELECTRIC MULE DRIVER LAB BLOOD ORDERABLES Final Resul t [facility] [address] [place] [address], [place] [phone] * (ABNORMAL) Hepatic function panel (04/28/2024 9:32 AM EDT) Total Bilirubin 1.5(H) 0.3 - 1.0 mg/dL 04/28/2024 11:09 AM EDT [facility] Bilirubin, Direct 0.4(H) 0.0 - 0.2 mg/dL 04/28/2024 11:09 AM [facility] Alkaline Phosphatase 179(H) 29 - 108 U/L 04/28/2024 11:09 AM EDT [facility] AST 53(H) 10 - 28 U/L 04/28/2024 11:09 AM [facility] ALT (SGPT) 30 <=40 U/L 04/28/2024 11:09 AM [facility] Albumin 3.7 3.5 - 5.1 g/dL 04/28/2024 11:09 AM [facility] Total Protein 7.3 5.9 - 7.9 g/dL 04/28/2024 11:09 AM [facility] Blood Venous blood specimen / Unknown Venipuncture / Unknown 04/28/2024 9:32 AM EDT 04/28/2024 9:32 AM EDT [facility] - 04/28/2024 11:09 AM EDT Results for ALT may be adversely affected when samples are collected on patients taking Sulfasalazine and/or Sulfapyridine. Please note possible changes in reference range and units reported due to change in methodology. us Aubrie Hyde NP LAB BLOOD ORDERABLES Final Resul t [facility] [address] [place] [address], * (ABNORMAL) Basic metabolic panel (04/28/2024 9:32 AM EDT) Glucose 117(H) 58 - 104 mg/dL 04/28/2024 11:49 AM EDT [facility] Sodium 139 134 - 143 mmol/L 04/28/2024 11:49 AM [facility] Potassium 3.6 3.2 - 4.6 mmol/L 04/28/2024 11:49 AM [facility] Chloride 105 99 - 108 mmol/L 04/28/2024 11:49 AM [facility] CO2 28 19 - 29 mmol/L 04/28/2024 11:49 AM [facility] Anion Gap 6 5 - 15 mmol/L 04/28/2024 11:49 AM [facility] BUN 15 7 - 20 mg/dL 04/28/2024 11:49 AM [facility] Creatinine 0.83 <=1.20 mg/dL 04/28/2024 11:49 AM [facility] BUN/Creatinine Ratio 18.07 10.00 - 20.00 ratio 04/28/2024 11:49 AM [facility] Calcium 9.6 7.9 - 11.1 mg/dL 04/28/2024 11:49 AM [facility] eGFR (CKD-EPI) 80.2 >60.0 - 200.0 mL/min/1.7 3m*2 04/28/2024 11:49 AM [facility] Blood Venous blood specimen / Unknown Venipuncture / Unknown 04/28/2024 9:32 AM EDT 04/28/2024 9:32 AM EDT [facility] - 04/28/2024 11:49 AM EDT Please note possible changes in reference range and units reported due to change in methodology. us Aubrie Hyde NP LAB BLOOD ORDERABLES Final Resul t [facility] [address] [place] [address], [place] [phone] * (ABNORMAL) CBC (04/28/2024 9:32 AM EDT) Auto WBC 4.8 3.8 - 11.0 10*3/uL 04/28/2024 10:21 AM [facility] RBC 4.43 3.73 - 5.13 10*6/uL 04/28/2024 10:21 AM [facility] Hemoglobin 14.9 11.2 - 15.3 g/dL 04/28/2024 10:21 AM [facility] Hematocrit 42.9 32.6 - 44.6 % 04/28/2024 10:21 AM [facility] MCV 96.9(H) 78.8 - 96.0 fL 04/28/2024 10:21 AM [facility] MCH 33.6(H) 26.2 - 33.0 pg 04/28/2024 10:21 AM [facility] MCHC 34.7 32.7 - 35.1 g/dL 04/28/2024 10:21 AM [facility] RDW 13.1 12.1 - 16.1 % 04/28/2024 10:21 AM [facility] Platelets 93(L) 138 - 402 10*3/uL 04/28/2024 10:21 AM [facility] MPV 8.2 7.0 - 10.6 fL 04/28/2024 10:21 AM [facility] Blood Venous blood specimen / Unknown Venipuncture / Unknown 04/28/2024 9:32 AM EDT 04/28/2024 9:32 AM EDT us Aubrie May ELECTRIC MULE DRIVER LAB BLOOD ORDERABLES Final Resul t Performing Organization Address City/State/[facility] Co de Phone Number [facility] [address] [place] [address], documented in this encounter Visit Diagnoses Diagnosis Cirrhosis of liver with ascites, unspecified hepatic cirrhosis type- Primary GAVE (gastric antral vascular ectasia) Abnormal tumor markers Other abnormal tumor markers Cirrhosis of liver with ascites, unspecified hepatic cirrhosis type GAVE (gastric antral vascular ectasia) Abnormal tumor markers Other abnormal tumor markers documented in this encounter Additional Health Concerns Assessment Noted Time PHQ-9 Depression Total Score: 0 07/24/19 23 3:00 PM EST documented as of this encounter Care Teams Vehicle Body Maker Relationship Specialty Start Date End Date Trevor Rolon DO [address] [facility] [address] [place] [address] PCP - General Lucy Christopher DO [address] [facility] [place] [address] Consulting Physician Oncology 10/17/24 documented as of this encounter
--- OUTSIDE RECORDS SUMMARY | 2025-01-02 18:15 | XMS_ITS | Encounter Summary ---
Author Organization [facility] nter Address [address] [place] [address] Care Team Providers Care Oil Deliverer Name Role Phone Trevor Rolon DO Primary Care Provider Lucy Christopher DO Unavailable Reason for Visit * Reason Comments Med Refill Encounter Details Date Type Department Care Team (Late st Contact Info) Description 09/14/2023 Refill [facility] NEUROLOGY PRACTICE [address], 8th [place] [address] Lupe Villalta, BUSINESS PROJECT ANALYST [address] [place] [address] Social History Tobacco Use Types [...] do you attend [facility] or alevism services? More than 4 times per year 07/24/2022 Do you belong to any clubs o r organizations such as restorationism groups, unions, fraternal or athletic groups, or [...] Recorded Patient Health Questionnaire-2 Score 0 07/24/2022 [facility] [place] of Occupat ional Health - Occupational Stress [...] PRACTICE [address], 8th [place] [address] Ben Knox MD [address] [facility] [place] [address] 01/22/2025 2:00 PM EDT Office Visit [facility] RHEUMATOLOGY PRACTICE [address], 8th [place] [address] Suman Treviño MD [address] jak[address]. [place] [address] 01/24/2025 1:00 PM EDT Office Visit [facility] SLEEP LAB PRACTICE [address] [facility] [place] [address] Demario Silva DO [address] [place] [phone] 02/15/2025 1:20 PM EDT Appointment [facility] MAMMOGRAPHY SERVICES [facility] D [address], [facility] [place] [address] 02/27/2025 1:00 PM EDT Office Visit [facility] ORTHOPEDIC PODIATRY PRACTICE [address], 6th [place] [address] Alexandr Zarate DPM [address] [facility] [place] [phone] 02/28/2025 1:45 PM EDT Office Visit [facility] [address], 10th [place] [address] Lucy Christopher DO [address] [facility] [place] [address] 03/19/2025 1:15 PM EDT Office Visit [facility] GASTROENTER[facility]ACT[facility] [address], 2nd [place] [address] 08/16/2025 10:00 AM EST Office Visit [facility] ENDOCRINOLOGY PRACTICE [address], 8th [place] [address] Brigitte Mahoney, CLAU [address] d[address] [place] [address] 12/13/2025 11:00 AM EDT Office Visit [facility] O[facility] [address], 7th [place] [address] Janice Woodward, BUSINESS PROJECT ANALYST [address] [place] [address] documented as of this encounter Visit Diagnoses Not on filedocumented in this encounter Additional Health Concerns Assessment Noted Time PHQ-9 Depression Total Score: 0 07/24/19 23 3:00 PM EST documented as of this encounter Care Teams Oil Deliverer Relationship Specialty Start Date End Date Trevor Rolon DO [address] [facility] [address] [place] [address] PCP - General Lucy Christopher DO [address] [place] [address] Consulting Physician Oncology 10/17/24 documented as of this encounter
--- OUTSIDE RECORDS SUMMARY | 2025-01-02 18:15 | XMS_ITS | Encounter Summary ---
Author Organization [facility] nter Address [address] [place] [address] Care Team Providers Care Affiliate Marketing Coordinator Name Role Phone Trevor Rolon DO Primary Care Provider Lucy Christopher DO Unavailable Encounter Details Date Type Department Care Team (Late st Contact Info) Description 02/16/2024 Orders Only [facility] GASTROENTEROLOGY PRACTICE [address], 2nd Floor Clinic [place] [phone] Rosita Cortez, CORWIN [address] [place] [address] Social History Tobacco Use Types Packs/Day Years [...] How often do you attend chur or alevism services? More than 4 times per year 07/24/2022 Do you belong to any clubs o r organizations such as muslim groups, unions, fraternal or athletic groups, or [...] Recorded Patient Health Questionnaire-2 Score 0 09/28/2023 [employer] of Occupat ional Health - Occupational Stress [...] Description 01/22/2025 12:00 PM EDT Office Visit [facility] NEUROLOGY PRACTICE [address], 8th Floor Clinic [place] [address] Ben Knox MD [address] Bld[address] [place] [address] 01/22/2025 2:00 PM EDT Office Visit [facility] RHEUMATOLOGY PRACTICE [address], 8th Floor Clinic [place] [address] Suman Treviño MD [address] [place] [address] 01/24/2025 1:00 PM EDT Office Visit [facility] SLEEP LAB PRACTICE [address] [facility] [place] [address] Demario Silva DO [address] [place] [address] 02/15/2025 1:20 PM EDT Appointment [facility] MAMMOGRAPHY SERVICES [facility] D [address], [facility] [address] 02/27/2025 1:00 PM EDT Office Visit [facility] ORTHOPEDIC PODIATRY PRACTICE [address], 6th [place] [address] Alexandr Zarate DPM [address] [facility] [place] [address] 02/28/2025 1:45 PM EDT Office Visit [facility] ONCOLOGY PRACTICE [address], 10th [place] [address] Lucy Christopher DO [address] [facility] [place] [address] 03/19/2025 1:15 PM EDT Office Visit [facility] GASTROENTEROLOGY PRACTICE [address], 2nd [place] [address] 08/16/2025 10:00 AM EST Office Visit [facility] [address], 8th [place] [address] Brigitte Mahoney, CLAU [address] [facility] [place] [address] 12/13/2025 11:00 AM EDT Office Visit [facility] OBGYN PRACTICE [address], 7th [place] [address] Janice Woodward, CHYRON OPERATOR [address] [place] [address] documented as of this encounter Visit Diagnoses Not on filedocumented in this encounter Additional Health Concerns Assessment Noted Time PHQ-9 Depression Total Score: 0 07/24/19 23 3:00 PM EST documented as of this encounter Care Teams Affiliate Marketing Coordinator Relationship Specialty Start Date End Date Trevor Rolon DO [address] [facility] [address] [place] [phone] PCP - General Lucy Christopher DO [address] [place], [place] [id number] Consulting Physician Oncology 10/17/24 documented as of this encounter
--- OUTSIDE RECORDS SUMMARY | 2025-01-02 18:15 | XMS_ITS | Encounter Summary ---
Author Organization [facility] nter Address [address] [place] [address] Care Team Providers Care State Farm Agent Team Member Name Role Phone Trevor Rolon DO Primary Care Provider Lucy Christopher DO Unavailable Encounter Details Date Type Department Care Team (Late st Contact Info) Description 12/14/2024 Telephone [facility] GASTROENTEROLOGY PRACTICE [address], 2nd [place] [phone] Edna Recinos Social History Tobacco Use Types Packs/Day Years [...] week 07/24/2022 How often do you attend [facility] or jain services? More than 4 times [...] Questionnaire-2 Score 0 09/28/2023 [facility] of Occupat ional Health - [...] a half-way (including now)? No 07/24/2022 Comments No Sex and Gender Information Value Date Recorded Sex Assigned at Female 09/17/2021 11:23 AM EST Legal Sex Female 11:23 AM EST Gender Identity Female 09/17/2021 11:23 AM EST Sexual Orientation Straight 09/17/2021 11 :23 AM EST documented as of this encounter Miscellaneous Notes * Telephone Encounter - Melissa Jacobs - 12/14/2024 11:09 AM EDT Spoke with patient at this time. Patient states she is okay with r/s EGD for tomorrow. Verified shestill has prep instructions. Patients last dose of PO iron was 12/09. Per BLAISE Jarrell that was okay and patient can proceed. CORWIN Bishop notified * Telephone Encounter - Edna Recinos - 12/14/2024 10:47 AM EDT Attempted to contact patient to reschedule EGD with [facility] from 12/29 due to [facility] being out of town. If patient could do this tomorrow we can get her rescheduled. Need to know if patient still has prep instructions. Unable to reach patient, left message to return my call. documented in this encounter Plan of Treatment Upcoming Encounters Date Type Department Care Team (Late st Contact Info) Description 01/22/2025 12:00 PM EDT Office Visit [facility] NEUROLOGY PRACTICE [address], 8th [place] [address] Ben Knox MD [address] [facility] [place] [address] 01/22/2025 2:00 PM EDT Office Visit [facility] RHEUMATOLOGY PRACTICE [address], 8th [place] [address] Suman Treviño MD [address] [facility] [place] [address] 01/24/2025 1:00 PM EDT Office Visit [facility] SLEEP LAB PRACTICE [address] [place] [address] Demario Silva DO [address] [place] [phone] 02/15/2025 1:20 PM EDT Appointment [facility] MAMMOGRAPHY SERVICES [facility] D [address], [place] [address] 02/27/2025 1:00 PM EDT Office Visit [facility] ORTHOPEDIC PODIATRY PRACTICE [address], 6th [place] [address] Alexandr Zarate DPM [address] [place] [address] 02/28/2025 1:45 PM EDT Office Visit [facility] ONCOLOGY PRACTICE [address], 10th [place] [address] Lucy Christopher DO [address] [place] [facility] 03/19/2025 1:15 PM EDT Office Visit [facility] GASTROENTEROLOGY PRACTICE [address], 2nd [place] [address] 08/16/2025 10:00 AM EST Office Visit [facility] ENDOCRINOLOGY PRACTICE [address], 8th Floor Clinic [place] [phone] Brigitte Mahoney NP [address] [place] [phone] 12/13/2025 11:00 AM EDT Office Visit [facility] OBGYN PRACTICE [address], 7th Floor [facility] [place] [address] Janice Woodward NP [address] [place] [address] documented as of this encounter Visit Diagnoses Not on filedocumented in this encounter Additional Health Concerns Assessment Noted Time PHQ-9 Depression Total Score: 0 07/24/19 23 3:00 PM EST documented as of this encounter Care Teams State Farm Agent Team Member Relationship Specialty Start Date End Date Trevor Rolon DO [address] [facility] [address] [place] [phone] PCP - General Lucy Christopher DO [address] [facility] [facility]01 Consulting Physician Oncology 10/17/24 documented as of this encounter
--- OUTSIDE RECORDS SUMMARY | 2025-01-02 18:15 | XMS_ITS | Encounter Summary ---
Author Organization [facility] nter Address [address] [place] [address] Care Team Providers Care Nurse Companion Name Role Phone Trevor Rolon DO Primary Care Provider Lucy Christopher DO Unavailable Encounter Details Date Type Department Care Team (Late st Contact Info) Description 01/02/2025 Telephone [facility] ONCOLOGY PRACTICE [address], 10th [place] [phone] Janice Schumacher [address] [place] [address] Social History Tobacco Use Types Packs/Day Years [...] How often do you attend chur or orthodoxy services? More than 4 times per year 07/24/2022 Do you belong to any clubs o r organizations such as hinduism groups, unions, fraternal or athletic groups, or [...] Recorded Patient Health Questionnaire-2 Score 0 09/28/2023 [facility] of Occupat ional Health - Occupational [...] encounter Miscellaneous Notes * Telephone Encounter - Janice Schumacher - 01/02/2025 1:47 PM EDT Patient called inquiring about zinc and copper medication BLAISE, states that she had been discussing with [employer] about the authorizations but was unsure if they were approved or denied, sent epic chat to [employer] to see if there was an update on medication. Dr. Christopher notified that patient states if they will not be approved through the insurance she can not afford it. documented in this encounter Plan of Treatment Upcoming Encounters Date Type Department Care Team (Late st Contact Info) Description 01/22/2025 12:00 PM EDT Office Visit [facility] NEUROLOGY PRACTICE [address], 8th [place] [address] Ben Knox MD [address] [place] [address] 01/22/2025 2:00 PM EDT Office Visit [facility] RHEUMATOLOGY PRACTICE [address], 8th Floor [facility] [place] [address] Suman Treviño MD [address] [place] [facility] 01/24/2025 1:00 PM EDT Office Visit [facility] SLEEP LAB PRACTICE [address], Tommy [facility] [place] [address] Demario Silva DO [address] [place] [address] 02/15/2025 1:20 PM EDT Appointment [facility] MAMMOGRAPHY SERVICES [facility] D [address], [facility] [place] [address] 02/27/2025 1:00 PM EDT Office Visit [facility] ORTHOPEDIC PODIATRY PRACTICE [address], 6th Floor [place] [phone] Alexandr Zarate DPM [address] [facility] [place] [phone] 02/28/2025 1:45 PM EDT Office Visit [facility] [address], 10th [place] [address] Lucy Christopher DO [address] [place] [address] 03/19/2025 1:15 PM EDT Office Visit [facility] GASTROENTEROLOGY PRACTICE [address], 2nd [place] [address] 08/16/2025 10:00 AM EST Office Visit [facility] ENDOCRINOLOGY PRACTICE [address], 8th [place] [address] Brigitte Mahoney NP [address] [place] [address] 12/13/2025 11:00 AM EDT Office Visit [facility] OBGYN PRACTICE [address], 7th [place] [address] Janice Woodward NP [address] [place] [phone] documented as of this encounter Visit Diagnoses Not on filedocumented in this encounter Additional Health Concerns Assessment Noted Time PHQ-9 Depression Total Score: 0 07/24/19 23 3:00 PM EST documented as of this encounter Care Teams Nurse Companion Relationship Specialty Start Date End Date Trevor Rolon DO [address] [facility] [address] [place] [address] PCP - General Lucy Christopher DO [address] [place] [phone] Consulting Physician Oncology 10/17/24 documented as of this encounter
--- OUTSIDE RECORDS SUMMARY | 2025-01-02 18:15 | XMS_ITS | Encounter Summary ---
Author Organization [facility] nter Address [address] [place] [address] Care Team Providers Care Hearing And Speech Assistant Name Role Phone Trevor Rolon DO Primary Care Provider Lucy Christopher DO Unavailable Reason for Visit * Reason Comments Med Refill Encounter Details Date Type Department Care Team (Late st Contact Info) Description 01/17/[address] [facility] NEUROLOGY PRACTICE [facility] [address], [address] [place] [address] Lupe Villalta, PC TECH [address] [place] [address] Social History Tobacco Use Types [...] week 07/24/2022 How often do you attend [facility] or [facility] services? More than 4 times per year [...] Recorded Patient Health Questionnaire-2 Score 0 09/28/2023 [facility] [place] of Occupat ional Health - Occupational [...] PRACTICE [address], 8th [place] [address] Ben Knox MD [address] [place] [address] 01/22/2025 2:00 PM EDT Office Visit [facility] RHEUMATOLOGY PRACTICE [address], 8th [place] [address] Suman Treviño MD [address] [place] [place] [address] 01/24/2025 1:00 PM EDT Office Visit [facility] SLEEP LAB PRACTICE [address] [place] [facility] [place] [address] Demario Silva DO [address] [place] [facility]01 02/15/2025 1:[address] [facility] MAMMOGRAPHY SERVICES [facility] D [address], [facility] [place] [address] 02/27/2025 1:00 PM EDT Office Visit [facility] ORTHOPEDIC PODIATRY PRACTICE [address], 6th [place] [address] Alexandr Zarate, OLLIE [address] [facility] [place] [phone] 02/28/2025 1:45 PM EDT Office Visit [facility] ONCOLOGY PRACTICE [address], 10th Floor Clinic [place] [phone] Lucy Christopher, DO [address] [facility] [place] [address] 03/19/2025 1:15 PM EDT Office Visit [facility] GASTROENTEROLOGY PRACTICE [address], 2nd [place] [address] 08/16/2025 10:00 AM EST Office Visit [facility] ENDOCRINOLOGY PRACTICE [address], 8th [place] [address] Brigitte Mahoney, CLAU [address] [place] [place] [address] 12/13/2025 11:00 AM EDT Office Visit [facility] [address], 7th Floor [place] [address] Janice Woodward, PC TECH [address] [place] [address] documented as of this encounter Visit Diagnoses Not on filedocumented in this encounter Additional Health Concerns Assessment Noted Time PHQ-9 Depression Total Score: 0 07/24/19 23 3:00 PM EST documented as of this encounter Care Teams Hearing And Speech Assistant Relationship Specialty Start Date End Date Trevor Rolon DO [address] [facility] [address] [place] [address] PCP - General Lucy Christopher DO [address] [place] [address] Consulting Physician Oncology 10/17/24 documented as of this encounter
--- OUTSIDE RECORDS SUMMARY | 2025-01-02 18:15 | XMS_ITS | Encounter Summary ---
Author Organization [facility] nter Address [address] [place] [address] Care Team Providers Care Electric Wheelchair Repairer Name Role Phone Trevor Rolon DO Primary Care Provider Lucy Christopher DO Unavailable Encounter Details Date Type Department Care Team (Late st Contact Info) Description 07/20/2022 Orders Only [facility] GASTROENTEROLOGY PRACTICE [address], 2nd [place] [address] Laquita Woods PA [address] [place] [address] Social History Tobacco Use Types Packs/Day Years Used Date Smoking Tobacco: Former Cigarettes Passive Smoke Exposure: Past Smokeless Tobacco: Never [...] How often do you attend chur or cheondoism services? More than 4 times per year [...] Recorded Patient Health Questionnaire-2 Score 0 07/24/2022 [facility] of Occupat ional [...] a long-term (including now)? No 07/24/2022 Comments Unknown Sex [...] suspected to have Coronavirus/COVID-19? No / Unsure 07/23/2022 12:52 PM EST documented as of this encounter Functional Status * AUDIT-C Score Answer Date of Assessment Author 0 07/23/2022 5:28 PM Sreedhar Oro * AUDIT Alcohol Screening Question Answer Date of Assessment Author Q1: How often do you have a drink containing alcohol? Never 07/23/2022 5:28 PM Michelle Oro Q2: How many drinks containing alcohol do you have on a typical day when you are drinking? Patient does not drink 07/23/2022 5:28 PM Michelle Oro Q3: How often do you have six or more drinks on one occasion? Never 07/23/2022 5:28 PM EST Michelle Ohara documented as of this encounter Plan of Treatment Upcoming Encounters Date Type Department Care Team (Late st Contact Info) Description 01/22/2025 12:00 PM EDT Office Visit [facility] NEUROLOGY PRACTICE [address], 8th [place] [address] Ben Knox MD [address] [place] [address] 01/22/2025 2:00 PM EDT Office Visit [facility] RHEUMATOLOGY PRACTICE [address], 8th [place] [address] Suman Treviño MD [address] [place] [address] 01/24/2025 1:00 PM EDT Office Visit [facility] SLEEP LAB PRACTICE [address] [place] [address] Demario Silva DO [address] [place] [phone] 02/15/2025 1:20 PM EDT Appointment [facility] MAMMOGRAPHY SERVICES BL D [address], [place] [address] 02/27/2025 1:00 PM EDT Office Visit [facility] ORTHOPEDIC PODIATRY PRACTICE [address], 6th [place] [address] Alexandr Zarate DPM [address] [place] [address] 02/28/2025 1:45 PM EDT Office Visit [facility] ONCOLOGY PRACTICE [address], 10th [place] [address] Lucy Christopher DO [address]ld[address] [place] [address] 03/19/2025 1:15 PM EDT Office Visit [facility] GASTROENTEROLOGY PRACTICE [address], 2nd [place] [phone] 08/16/2025 10:00 AM EST Office Visit [facility] END[facility]CRIN[facility] [address], 8th Floor Clinic [place] [phone] Brigitte Mahoney NP [address]ld[address] [place] [phone] 12/13/2025 11:00 AM EDT Office Visit [facility] OBGYN PRACTICE [address], 7th [place] [address] Janice Woodward NP [address] [place] [address] documented as of this encounter Visit Diagnoses Not on filedocumented in this encounter Care Teams Electric Wheelchair Repairer Relationship Specialty Start Date End Date Trevor Rolon DO [address] [facility] [address] [phone] PCP - General Lucy Christopher DO [address] [facility] [place] [address] Consulting Physician Oncology 10/17/24 documented as of this encounter
--- OUTSIDE RECORDS SUMMARY | 2025-01-02 18:15 | XMS_ITS | Encounter Summary ---
Author Organization [facility] nter Address [address] [place] [address] Care Team Providers Care Correctional Medicine Physician Name Role Phone Trevor Rolon DO Primary Care Provider Lucy Christopher DO Unavailable Encounter Details Date Type Department Care Team (Late st Contact Info) Description 02/14/2024 Orders Only [facility] NEUROLOGY PRACTICE [address], 8th [place] [address] Lupe Villalta, OYSTER GROWER [address] [place] [address] Social History Tobacco Use Types [...] How often do you attend chur or restorationism services? More than 4 times per year [...] Recorded Patient Health Questionnaire-2 Score 0 09/28/2023 [facility] of Occupat ional Health - Occupational Stress [...] PRACTICE [address], 8th [place] [address] Ben Knox MD [address] [place] [address] 01/22/2025 2:00 PM EDT Office Visit [facility] RHEUMATOLOGY PRACTICE [address], 8th [place] [address] Suman Treviño MD [address] jak[address] [place] [facility] [place] [address] 01/24/2025 1:00 PM EDT Office Visit [facility] SLEEP LAB PRACTICE [address] Tommy [facility] [place] [address] Demario Silva DO [address] [place] [phone] 02/15/2025 1:20 PM EDT Appointment [facility] MAMMOGRAPHY SERVICES BL D [address], [facility] [place] [address] 02/27/2025 1:00 PM EDT Office Visit [facility] ORTHOPEDIC PODIATRY PRACTICE [address], 6th [place] [address] Alexandr Zarate DPM [address] [facility] [place] [address] 02/28/2025 1:45 PM EDT Office Visit [facility] ONCOLOGY PRACTICE [address], 10th [place] [address] Lucy Christopher, DO [address] [facility] [place] [phone] 03/19/2025 1:15 PM EDT Office Visit [facility] GASTROENTEROLOGY PRACTICE [address], 2nd [place] [address] 08/16/2025 10:00 AM EST Office Visit [facility] ENDOCRINOLOGY PRACTICE [address], 8th [place] [address] Brigitte Mahoney, CLAU [address] [facility] [place] [address] 12/13/2025 11:00 AM EDT Office Visit [facility] OBGYN PRACTICE [address], 7th [place] [address] Janice Woodward, OYSTER GROWER [address] [place] [address] documented as of this encounter Visit Diagnoses Not on filedocumented in this encounter Additional Health Concerns Assessment Noted Time PHQ-9 Depression Total Score: 0 07/24/19 23 3:00 PM EST documented as of this encounter Care Teams Correctional Medicine Physician Relationship Specialty Start Date End Date Trevor Rolon DO [address] [facility] [address] [place] [address] PCP - General Lucy Christopher DO [address] [place] [phone] Consulting Physician Oncology 10/17/24 documented as of this encounter
--- OUTSIDE RECORDS SUMMARY | 2025-01-02 18:15 | XMS_ITS | Encounter Summary ---
Author Organization [facility] nter Address [address] [place] [address] Care Team Providers Care Tool Procurement Coordinator Name Role Phone Trevor Rolon DO Primary Care Provider Lucy Christopher DO Unavailable Encounter Details Date Type Department Care Team (Latest Contact Info) Description 12/12/2024 Travel Social History Tobacco Use Types Packs/Day [...] any clubs o r organizations such as anabaptist groups, unions, fraternal or athletic groups, or [...] Recorded Patient Health Questionnaire-2 Score 0 09/28/2023 [facility] of Occupat ional [facility] - Occupational Stress Questionnaire Answer Date [...] [facility] [address] 8th [place] [address] Ben Knox MD [facility] [place] [address] 01/22/2025 2:00 PM EDT Office Visit [facility] RHEUMATOLOGY PRACTICE [address] 8th [place] [address] Suman Treviño MD [address] [place] [address]. [place] [address] 01/24/2025 1:00 PM EDT Office Visit [facility] SLEEP LAB PRACTICE [address] Tommy Ramsey [facility] [place] [address] Demario Silva DO [address] [place] [address] 02/15/2025 1:20 PM EDT Appointment [facility] MAMMOGRAPHY SERVICES BL D [address], [facility] [place] [address] 02/27/2025 1:00 PM EDT Office Visit [facility] ORTHOPEDIC PODIATRY PRACTICE [address], 6th [place] [address] Alexandr Zarate DPM [address] [place] [address] 02/28/2025 1:45 PM EDT Office Visit [facility] ONCOLOGY PRACTICE [address], 10th [place] [address] Lucy Christopher DO [address] [facility] [place] [address] 03/19/2025 1:15 PM EDT Office Visit [facility] GASTROENTEROLOGY PRACTICE [address], 2nd [place] [address] 08/16/2025 10:00 AM EST Office Visit [facility] ENDOCRINOLOGY PRACTICE [address], 8th [place] [address] Brigitte Mahoney NP [address] [facility] [place] [address] 12/13/2025 11:00 AM EDT Office Visit [facility] [address], 7th [place] [address] Janice Woodward NP [address] [place] [id number] documented as of this encounter Visit Diagnoses Not on filedocumented in this encounter Additional Health Concerns Assessment Noted Time PHQ-9 Depression Total Score: 0 07/24/19 23 3:00 PM EST documented as of this encounter Care Teams Tool Procurement Coordinator Relationship Specialty Start Date End Date Trevor Rolon DO [address] [facility] [address] [place] [id number] PCP - General Lucy Christopher DO [address] [place] [address] [place] [address] Consulting Physician Oncology 10/17/24 documented as of this encounter
--- OUTSIDE RECORDS SUMMARY | 2025-01-02 18:15 | XMS_ITS | Encounter Summary ---
Author Organization [facility] nter Address [address] [place] [address] Care Team Providers Care Coatings Inspector Name Role Phone Trevor Rolon DO Primary Care Provider Lucy Christopher DO Unavailable Encounter Details Date Type Department Care Team (Latest Contact Info) Description 12/15/2024 Travel Social History Tobacco Use Types Packs/Day [...] often do you attend chur ch or religion services? More than 4 times [...] Recorded Patient Health Questionnaire-2 Score 0 09/28/2023 [facility] of Occupat ional [facility] - Occupational Stress Questionnaire Answer Date Recorded [...] Description 01/22/2025 12:00 PM EDT Office Visit [facility] NEUROLOGY PRACTICE [address] , 8th [place] [address] Ben Knox MD [facility] [address] [place] [address] 01/22/2025 2:00 PM EDT Office Visit [facility] RHEUMATOLOGY PRACTICE [address] , 8th [place] [address] Suman Treviño MD [address] [place] [address]. [place] [address] 01/24/2025 1:00 PM EDT Office Visit [facility] SLEEP LAB PRACTICE [address] Tommy Ramsey [facility] [place] [address] Demario Silva DO [address] [place] [address] 02/15/2025 1:20 PM EDT Appointment [facility] MAMMOGRAPHY SERVICES BL D [address], [facility] [place] [address] 02/27/2025 1:00 PM EDT Office Visit [facility] ORTHOPEDIC PODIATRY PRACTICE [address], 6th [place] [address] Alexandr Zarate DPM [address] [place] [address] 02/28/2025 1:45 PM EDT Office Visit [facility] ONCOLOGY PRACTICE [address], 10th [place] [address] Lucy Christopher DO [address] [facility] [place] [address] 03/19/2025 1:15 PM EDT Office Visit [facility] GASTROENTEROLOGY PRACTICE [address], 2nd [place] [address] 08/16/2025 10:00 AM EST Office Visit [facility] ENDOCRINOLOGY PRACTICE [address], 8th [place] [address] Brigitte Mahoney NP [address] [facility] [place] [address] 12/13/2025 11:00 AM EDT Office Visit [facility] [address], 7th [place] [address] Janice Woodward NP [address] [place] [phone] documented as of this encounter Visit Diagnoses Not on filedocumented in this encounter Additional Health Concerns Assessment Noted Time PHQ-9 Depression Total Score: 0 07/24/19 23 3:00 PM EST documented as of this encounter Care Teams Coatings Inspector Relationship Specialty Start Date End Date Trevor Rolon DO [address] [facility] [address] [place] [phone] PCP - General Lucy Christopher DO [address] [place] [address] [place] [address] Consulting Physician Oncology 10/17/24 documented as of this encounter
--- OUTSIDE RECORDS SUMMARY | 2025-01-02 18:15 | XMS_ITS | Encounter Summary ---
Author Organization [facility] nter Address [address] [place] [address] Care Team Providers Care Paper Ruler Name Role Phone Trevor Rolon DO Primary Care Provider Lucy Christopher DO Unavailable Reason for Visit * Reason Comments Med Refill Encounter Details Date Type Department Care Team (Late st Contact Info) Description 09/10/2023 Refill [facility] [address], 9th [place] [phone] Marc Back, OD [address] [place] [address] Keratoconjunctivitis sicca of both eyes not specified as Sjogren's Social History Tobacco Use Types Packs/Day Years [...] 07/24/2022 How often do you attend [facility] or yarsanism services? More than 4 times per year [...] Recorded Patient Health Questionnaire-2 Score 0 07/24/2022 [facility] of Occupat ional Health - Occupational Stress [...] place to sleep or slept in a fdc (including now)? No 07/24/2022 Comments No Sex and Gender Information Value Date Recorded Sex Assigned at Female 09/17/2021 11:23 AM EST Legal Sex Female 11:23 AM EST Gender Identity Female 09/17/2021 11:23 AM EST Sexual Orientation Straight 09/17/2021 11 :23 AM EST documented as of this encounter Miscellaneous Notes * Telephone Encounter - Chiara Kowalski OD - 10/01/2023 1:36 PM EDT Approving, but needs appt for additional refills. documented in this encounter Plan of Treatment Upcoming Encounters Date Type Department Care Team (Late st Contact Info) Description 01/22/2025 12:00 PM EDT Office Visit [facility] NEUROLOGY PRACTICE [address], 8th [place] [address] Ben Knox MD [address] [place] [address] 01/22/2025 2:00 PM EDT Office Visit [facility] RHEUMATOLOGY PRACTICE [address], 8th [place] [address] Suman Treviño MD [address] [place] [address] 01/24/2025 1:00 PM EDT Office Visit [facility] [address], Tommy [facility] [place] [address] Demario Silva DO [address] [place] [address] 02/15/2025 1:20 PM EDT Appointment [facility] MAMMOGRAPHY SERVICES BL D [address], [place] [address] 02/27/2025 1:00 PM EDT Office Visit [facility] ORTHOPEDIC PODIATRY PRACTICE [address], 6th Floor [place] [phone] Alexandr Zarate, ESAM [address] [place] [place] [address] 02/28/2025 1:45 PM EDT Office Visit [facility] [address], 10th [place] [address] Lucy Christopher DO [address] [place] [id number] 03/19/2025 1:15 PM EDT Office Visit [facility] GASTROENTEROLOGY PRACTICE [address], 2nd [place] [address] 08/16/2025 10:00 AM EST Office Visit [facility]CRIN[facility] [address], 8th [place] [address] Brigitte Mahoney NP [address] [facility] [place] [address] 12/13/2025 11:00 AM EDT Office Visit [facility] OBGYN PRACTICE [address], 7th [place] [address] Janice Woodward, CLAU [address] [place] [address] documented as of this encounter Visit Diagnoses Diagnosis Keratoconjunctivitis sicca of both eyes not specified as Sjogren's documented in this encounter Additional Health Concerns Assessment Noted Time PHQ-9 Depression Total Score: 0 07/24/19 23 3:00 PM EST documented as of this encounter Care Teams Paper Ruler Relationship Specialty Start Date End Date Trevor Rolon DO [address] [facility] [address] [place] [address] PCP - General Lucy Christopher DO [address] [facility] [place], [place] [phone] Consulting Physician Oncology 10/17/24 documented as of this encounter
[2025-01-02 18:38] LABS: Basophils % 0.7 % (0.1-2.0); Eosinophils # 0.4 Kmm3 (0.0-0.4); Eosinophils % 7.8 % (0.1-12.0); Hematocrit 40.9 % (37.0-47.0); Hemoglobin 13.7 g/dL (12.2-16.2); Immature Granulocytes # 0.02 10^3uL; Immature Granulocytes % 0.4 %; Lymphocytes # 1.2 K/mm3 (0.7-4.5); Lymphocytes % 22.6 % (10-50); Mean Corpuscular HGB Conc 33.5 g/dL (31.8-35.4); Mean Corpuscular Hemoglobin 33.4 pg (27.0-31.2); Mean Corpuscular Volume 99.8 fl (81-99); Mean Platelet Volume 10.3 fl (7.4-10.4); Monocytes # 0.5 K/mm3 (0.1-1.0); Monocytes % 9.3 % (1.7-9.3); Neutrophils # 3.2 K/mm3 (1.8-7.8); Neutrophils % 59.2 % (37.0-80.0); Nucleated Red Blood Cells # 0 10^3/uL; Nucleated Red Blood Cells % 0 %; Platelet Count 86 K/mm3 (142-424); Red Cell Distribution Width 13.6 % (11.5-17.5); White Blood Count 5.5 K/mm3 (4.8-10.8)
[2025-01-02 18:54] LABS: Albumin Level 3.3 g/dl (3.5-5.0); Chloride 104 mmol/L (98-107); Potassium 4.1 mmoL/L (3.5-5.1); Sodium 138 mmol/L (136-145)
[2025-01-02 18:57] LABS: Alanine Aminotransferase 45 U/L (12-78); Albumin/Globulin Ratio 0.9 (1.1-1.8); Alkaline Phosphatase 254 U/L (38-126); Anion Gap 10.1 mEq/L (5-15); Aspartate Amino Transferase 91 U/L (14-36); Bilirubin,Total 1.9 mg/dl (0.2-1.3); Blood Urea Nitrogen 15 mg/dl (7-17); Calcium 8.6 mg/dl (8.4-10.2); Carbon Dioxide 28 mmol/L (22.0-30.0); Estimated Glomerular Filt Rate 65 ml/min (>60); GFR (African American) 79 ML/MIN (>60); Globulin 3.8 g/dL (1.3-3.2); Glucose 109 mg/dl (74-100); Total Protein,Serum 7.1 g/dl (6.3-8.2)
== END 2025-01-02 23:59 | disposition home or self-care (01) ==
LOC: LAB 18:09
PROVIDERS: PCP Family Medicine; Visit Provider Family Medicine
DX: Z51.81 Encounter for therapeutic drug level monitoring (principal)
CPT/HCPCS: 36415; 80053; 85025

== ENCOUNTER 2025-04-11 13:58 | Outpatient (CLI) | payer OTHER, SELFPAY ==
--- OUTSIDE RECORDS SUMMARY | 2025-02-12 14:30 | XMS_ITS | Encounter Summary ---
Author Organization [facility] nter Address [address] [place] [address] Care Team Providers Care Digital Experience Manager Name Role Phone Trevor Rolon DO Primary Care Provider Lucy Christopher DO Unavailable Encounter Details Date Type Department Care Team (Latest Contact Info) Description 02/12/2025 2:30 PM EDT - 02/12/2025 2:31 PM EDT Hospital Encounter [facility] - GENERAL DIAGNOSTIC BLDG D [address], [place] [phone] Radiculopathy, lumbar region; Spondylosis without myelopathy or radiculopathy, thoracic region Discharge Disposition: Home or Self Care Social [...] How often do you attend chur or tenriism services? More than 4 times per year 07/24/2022 Do you belong to any clubs o r organizations such as methodist groups, unions, fraternal or athletic groups, or [...] Recorded Patient Health Questionnaire-2 Score 0 09/28/2023 [facility] of Occupat ional Health - Occupational Stress [...] mouth in the morning. Continuous Glucose Sensor (retickrcom G7 Sensor) miscIndications:Typ e 2 diabetes mellitus with hyperglycemia, with [...] 11 08/16/2024 ergocalciferol (Vitamin D-2) 1.25 MG (47456 UT) capsule Take 1 capsule (1.25 mg) by mouth 1 (one) time per week. FeroSul 325 (65 Fe) MG tablet Take 1 tablet (325 mg) by mouth in the morning. 04/27/2023 glucose blood (SimpleRegistryTouch Verio) test stripIndications:E1 1.65 Use 3 per day. Code E11.65 100 each 11 10/19/2024 hydrOXYzine HCl (Atarax) 25 MG tablet Take 1 tablet (25 mg) by mouth if needed in the morning, at noon, and at bedtime for itching. Insulin Pen Needle (Pen Rome) 32G X 4 MM miscIndications:Typ e 2 diabetes mellitus with hyperglycemia, with long-term current use of insulin Use 4 per day 100 each 3 09/01/2024 Lifitegrast (Xiidra) 5 % solutionIndications :Keratoconjunctivit is sicca of both eyes not specified as Sjogren's INSTILL 1 DROP IN EACH EYE TWO TIMES A DAY 180 each 4 10/01/2023 lisinopril 2.5 MG tablet Take 1 tablet (2.5 mg) by mouth in the morning. 05/11/2024 metoprolol succinate XL (Toprol-XL) 50 MG 24 hr tablet Take 1 tablet (50 mg) by mouth in the morning. Do not crush or chew. moxifloxacin (Vigamox) 0.5 % ophthalmic solution Administer 1 drop into the right eye in the morning, at noon, and at bedtime. 01/04/2025 ondansetron ODT (Zofran-ODT) 8 MG disintegrating tablet Take 4 mg by mouth every 8 (eight) hours if needed. 10/18/2024 oxyCODONE (Roxicodone) 5 MG immediate release tablet Take 1 tablet (5 mg) by mouth every 6 (six) hours if needed. 01/10/2025 potassium chloride CR (Klor-Con M20) 20 MEQ ER tablet Take 1 tablet (20 mEq) by mouth in the morning and 1 tablet (20 mEq) in the evening. 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 60 capsule 2 01/22/2025 5 promethazine (Phenergan) 25 MG tablet if needed. Rimegepant Sulfate (Nurtec) 75 MG tablet dispersibleIndicati ons:Migraine Take 1 tab PO at the onset of a migraine. Do not exceed more than 1 tab in 24 hours. 8 tablet 5 01/22/2025 rOPINIRole (Requip) 1 MG tablet Take 1 [...] tablet (20 mg) by mouth at bedtime. Zinc 50 MG tablet Take 1 tablet (50 mg) by mouth in the morning. 30 tablet 2 11/28/2024 busPIRone (Buspar) 7.5 MG tablet take 1 tablet by mouth two times a day as needed for anxiety 5 insulin aspart (NovoLOG FLEXPEN) 100 UNIT/ML penIndications:Type 2 diabetes mellitus with hyperglycemia, with long-term current use of insulin Take 5 units at breakfast, lunch, and supper if premeal BS >150. Max daily dose 50 units 15 mL 3 09/01/2024 5 LACTULOSE PO Take by mouth in the morning. 5 lansoprazole (Prevacid) [address] capsule Take 1 capsule (30 mg) by mouth before breakfast. Do not crush or chew. 5 Lantus SoloStar 100 UNIT/ML pen Take 20 units daily. Titrate to target glucose. Max daily dose 50 units. 15 mL 3 09/05/2024 5 lidocaine (Lidoderm) 5 % patch Apply 1 patch topically if needed each day for mild pain (1-4) or moderate pain (5-7). 01/07/2023 5 spironolactone (Aldactone) 100 MG tablet Take 1 tablet (100 mg) by mouth in the morning. 5 Xifaxan 550 MG tabletIndications:E ncephalopathy, hepatic TAKE 1 Tablet BY MOUTH EVERY MORNING AND AT BEDTIME 60 tablet 2 07/11/2024 5 documented as of this encounter Plan of Treatment Upcoming Encounters Date Type Department Care Team (Late st Contact Info) Description 04/30/2025 9:00 AM EDT Appointment [facility] ULTRASOUND [address], 2nd Floor [facility] [address] 05/07/2025 3:00 PM EDT Appointment [facility] MAMMOGRAPHY SERVICES [facility] D [address], [facility] [address] 06/18/2025 10:30 AM EST Office Visit [facility] GASTROENTEROLOGY PRACTICE [address], 2nd Floor [facility] [place] [address] 06/27/2025 10:00 AM EST Office Visit [facility] SLEEP LAB PRACTICE [address], [facility] [place] [address] NovemberMarcelina NP [address] [place] [address] 08/16/2025 10:00 AM EST Office Visit [facility] ENDOCRINOLOGY PRACTICE [address], 8th Floor [facility] [place] [address] Brigitte Mahoney NP [address] [facility] [place] [address] 09/18/2025 1:30 PM EDT Office Visit [facility] RHEUMATOLOGY PRACTICE [address], 8th [place] [address] Suman Treviño MD [address] [facility] [place] [address] 12/13/2025 11:00 AM EDT Office Visit [facility] [address], 7th Floor [place] [address] Janice Woodward, CLAU [address] [place] [id number] documented as of this encounter Procedures Procedure Name Priority Date/Time Associated Diagnosis Comments XR LUMBAR SPINE 2-3 VIEWS Routine 02/12/2025 2:57 PM EDT Radiculopathy, lumbar region Spondylosis without myelopathy or radiculopathy, thoracic region XR THORACIC SPINE Routine 02/12/2025 2:5 7 PM EDT Radiculopathy, lumbar region Spondylosis without myelopathy or radiculopathy, thoracic region documented in this encounter Results * XR thoracic spine (02/12/2025 2:57 PM EDT) Anatomical Region Laterality Modality Spine, T-spine Digital Radiogra phy 02/12/2025 2:57 PM EDT Impressions 02/13/2025 8:19 AM EDT No acute fracture of the thoracic spine. Electronically signed by: Colby Short MD 02/13/2025 08:19 AM EDT Narrative 02/13/2025 8:19 AM EDT XR THORACIC SPINE INDICATION: Technique: 3 views of the thoracic spine were submitted. COMPARISON:No prior study was submitted for comparison. Findings: The alignment of the thoracic spine is unremarkable. There are multilevel endplate degenerative changes of the thoracic spine. There is no acute fracture of the thoracic spine. Procedure Note Colby Short - 02/13/2025 XR THORACIC SPINE INDICATION: Technique: 3 views of the thoracic spine were submitted. COMPARISON:No prior study was submitted for comparison. Findings: The alignment of the thoracic spine is unremarkable. There are multilevelendplate degenerative changes of the thoracic spine. There is no acutefracture of the thoracic spine. IMPRESSION: No acute fracture of the thoracic spine. Electronically signed by: Colby Short MD 02/13/2025 08:19 AM EDT RPWorkstation: [id number] Louis Andrews MD IMG XR PROCEDURES Final Result * XR lumbar spine 2 or 3 views (02/12/2025 2:57 PM EDT) Anatomical Region Laterality Modality Spine, L-spine Digital Radiogra phy 02/12/2025 2:57 PM EDT Impressions 02/13/2025 8:21 AM EDT Slight dextrocurvature of the lumbar spine. Electronically signed by: Colby Short MD 02/13/2025 08:21 AM EDT RP Narrative 02/13/2025 8:21 AM EDT EXAM: XR LUMBAR SPINE 2-3 VIEWS INDICATION: pain. . TECHNIQUE: 3 radiographs of lumbar spine. COMPARISON: Comparison of the thoracic spine performed the same date. CT of abdomen and pelvis performed on 10/24/2023. FINDINGS: There is stable dextrocurvature of the lumbar spine. There is partial sacralization of bilateral L5 transverse process. There are multilevel endplate degenerative changes of the lumbar spine. There is no acute fracture of the lumbar spine. Procedure Note Colby Short - 02/13/2025 EXAM: XR LUMBAR SPINE 2-3 VIEWS INDICATION: pain. . TECHNIQUE: 3 radiographs of lumbar spine. COMPARISON: Comparison of the thoracic spine performed the same date. CTof abdomen and pelvis performed on 10/24/2023. FINDINGS: There is stable dextrocurvature of the lumbar spine. There is partialsacralization of bilateral L5 transverse process. There are multilevelendplate degenerative changes of the lumbar spine. There is no acutefracture of the lumbar spine. IMPRESSION: Slight dextrocurvature of the lumbar spine. Electronically signed by: Colby Short MD 02/13/2025 08:21 AM EDT RPWorkstation: [id number] Louis Andrews MD IMG XR PROCEDURES Final Result documented in this encounter Visit Diagnoses Diagnosis Radiculopathy, lumbar region Thoracic or lumbosacral neuritis or radiculitis, unspecified Spondylosis without myelopathy or radiculopathy, thoracic region documented in this encounter Additional Health Concerns Assessment Noted Time PHQ-9 Depression Total Score: 0 07/24/19 23 3:00 PM EST documented as of this encounter Care Teams Digital Experience Manager Relationship Specialty Start Date End Date Trevor Rolon DO [address] [facility] [address] [place] [phone] PCP - General Lucy Christopher DO [address] [facility] [address] [facility] [place] [address] Consulting Physician Oncology 10/17/24 documented as of this encounter
--- OUTSIDE RECORDS SUMMARY | 2025-02-20 11:40 | XMS_ITS | Encounter Summary ---
Author Organization [facility] nter Address [address] [place] [address] Care Team Providers Care Instrumentation Technician Name Role Phone Trevor Rolon DO Primary Care Provider Lucy Christopher DO Unavailable Reason for Referral * MRI (Emergency) - Closed Specialty Diagnoses / Procedures Referred By Contac t Referred To Contact Radiology Diagnoses Postlaminectomy syndrome, not elsewhere classified Procedures MR lumbar spine w and wo contrast Bharti Marks NP [address] [place] [id number] Phone: tel: fax: [facility] [address] [place] [address] Phone: tel: fax: Referral ID Status Reason Start Date Expiration Date V isits Requested Visits Authorized [id number] Closed Specialty Services Required 02/19/2025 02/19/2026 1 1 Reason for Visit * MRI (Emergency) - Closed Specialty Diagnoses / Procedures Referred By Contac t Referred To Contact Radiology Diagnoses Postlaminectomy syndrome, not elsewhere classified Procedures MR lumbar spine w and wo contrast Bharti Marks NP [address] [place], [place] [address], [place] [address] Phone: tel: fax: [facility] [address] [place] [address] Phone: tel: fax: Referral ID Status Reason Start Date Expiration Date V isits Requested Visits Authorized [id number] Closed Specialty Services Required 02/19/2025 02/19/2026 1 1 Encounter Details Date Type Department Care Team (Latest Contact Info) Description 02/20/2025 11:40 AM EDT - 02/20/2025 11:59 PM EDT Hospital Encounter [facility] [address] [place] [address] Postlaminectomy syndrome, not elsewhere classified Discharge Disposition: Home or Self Care Social [...] you attend [facility] or denominational services? More than 4 times per year [...] Patient Health Questionnaire-2 Score 0 09/28/2023 [facility] - Occupational [...] mouth in the morning. Continuous Glucose Sensor (Enbasecom G7 Sensor) miscIndications:Typ e 2 diabetes mellitus [...] 11 08/16/2024 ergocalciferol (Vitamin D-2) 1.25 MG (92667 UT) capsule Take 1 capsule (1.25 mg) by mouth 1 (one) time per week. FeroSul 325 (65 Fe) MG tablet Take 1 tablet (325 mg) by mouth in the morning. 04/27/2023 glucose blood (OneTouch Verio) test stripIndications:E1 1.65 Use 3 per day. Code E11.65 100 each 11 10/19/2024 hydrOXYzine HCl (Atarax) 25 MG tablet Take 1 tablet (25 mg) by mouth if needed in the morning, at noon, and at bedtime for itching. Insulin Pen Needle (Pen [place]) 32G X 4 MM miscIndications:Typ e 2 [...] and at bedtime. 60 capsule 2 01/22/2025 promethazine (Phenergan) 25 MG tablet if needed. [...] Info) Description 04/30/2025 9:00 AM EDT Appointment [facility] ULTRASOUND [address] [place] [address] 05/07/2025 3:00 PM EDT Appointment [facility] MAMMOGRAPHY SERVICES [address] [place] [address] 06/18/2025 10:30 AM EST Office Visit [facility] GASTROENTEROLOGY PRACTICE [address] [facility] [place] [address] 06/27/2025 10:00 AM EST Office Visit [facility] SLEEP LAB PRACTICE [address], [place] [facility] [place] [address] Marcelina Hyde NP [address] [facility] [place] [address] 08/16/2025 10:00 AM EST Office Visit [facility] ENDOCRINOLOGY PRACTICE [address] [place] [address] Brigitte Mahoney NP [address] [facility] [place] [address] 09/18/2025 1:30 PM EDT Office Visit [facility] RHEUMATOLOGY PRACTICE [address] [place] [address] Suman Treviño MD [address] [facility] [place] [address] 12/13/2025 11:00 AM EDT Office Visit [facility] OBGYN PRACTICE [address] [place] [address] Janice Woodward NP [address] [place] [address] documented as of this encounter Procedures Procedure Name Priority Date/Time Associated Diagnosis Comments MR LUMBAR SPINE W AND WO CONTRAST STAT 02/20/2025 2:07 PM EDT Postlaminectomy syndrome, not elsewhere classified POCT CREATININE - ENTER/EDIT Routine 02/20/2025 1:11 PM EDT documented in this encounter Results * MR lumbar spine w and wo contrast (02/20/2025 2:07 PM EDT) Anatomical Region Laterality Modality Spine, L-spine Magnetic Resonan ce 02/20/2025 1:21 PM EDT Impressions 02/20/2025 2:55 PM EDT Degenerative changes with canal and foraminal stenoses most significant at L4/5. Findings mildly progressed since 2022 MRI. Electronically signed by: Rome Felix MD 02/20/2025 02:55 PM EDT Narrative 02/20/2025 2:55 PM EDT MR LUMBAR SPINE WITHOUT THEN WITH IV CONTRAST 02/20/2025 12:21 PM CDT CLINICAL INDICATION: Female, 54 years old. M96.1 TECHNIQUE: MRI of the lumbar spine was performed without and with IV contrast. COMPARISON: 08/23/2022. FINDINGS: Preserved vertebral body height and alignment. Normal bone marrow signal. No abnormal areas of enhancement. L1/2: No evidence of canal or foraminal stenosis. L2/3: Facet hypertrophy and diffuse disc bulge and loss of disc height similar to the prior exam. Mild canal stenosis and mild bilateral foraminal stenosis. L3/4: Very shallow disc bulge and facet hypertrophy. Patent canal and foramina. L4/5: Severe facet hypertrophy and ligamentum flavum hypertrophy moderate canal stenosis and moderate right and mild left foraminal stenoses. L5/S1: Severe degenerative disc disease with loss of disc height. Facet hypertrophy. Patent canal. Mild left foraminal encroachment. Question laminectomy changes. Procedure Note Rome Felix - 02/20/2025 MR LUMBAR SPINE WITHOUT THEN WITH IV CONTRAST 02/20/2025 12:21 PM CDT CLINICAL INDICATION: Female, 54 years old. M96.1 TECHNIQUE: MRI of the lumbar spine was performed without and with IVcontrast. COMPARISON: 08/23/2022. FINDINGS: Preserved vertebral body height and alignment. Normal bone marrow signal. No abnormal areas of enhancement. L1/2: No evidence of canal or foraminal stenosis. L2/3: Facet hypertrophy and diffuse disc bulge and loss of disc heightsimilar to the prior exam. Mild canal stenosis and mild bilateralforaminal stenosis. L3/4: Very shallow disc bulge and facet hypertrophy. Patent canal andforamina. L4/5: Severe facet hypertrophy and ligamentum flavum hypertrophy moderatecanal stenosis and moderate right and mild left foraminal stenoses. L5/S1: Severe degenerative disc disease with loss of disc height. Facethypertrophy. Patent canal. Mild left foraminal encroachment. Questionlaminectomy changes. IMPRESSION: Degenerative changes with canal and foraminal stenoses most significant atL4/5. Findings mildly progressed since 2022 MRI. Electronically signed by: Rome Felix MD 02/20/2025 02:55 PM EDT RPWorkstation: [id number] Bharti Marks NP IMG MRI PROCEDURES Final Result * POCT Creatinine - Enter/Edit (02/20/2025 1:11 PM EDT) POC Creatinine 0.67 0.6 - 1.3 mg/dL GFR >60 >=60 ml/min Blood 02/20/2025 1:11 PM EDT Narrative Debora Blankenship RN - 02/20/2025 1:11 PM EDT For additional details regarding the eGFR calculation, please consult [facility] policy C6910.5051. Bharti Marks NP POINT OF CARE TEST ENTER /EDIT ORDERABLES Final Result documented in this encounter Visit Diagnoses Diagnosis Postlaminectomy syndrome, not elsewhere classified documented in this encounter Administered Medications Inactive Administered Medications - up to 3 most recent administrations Medication Order MAR Action Action Date Dose Rate Site gadoteridol (Prohance) injection 5,586 mg 5,586 mg (20 mL), Intravenous, Once in imaging, Starting on Wed02/20/25 at 1407, For 1 dose Given 02/20/2025 2:07 PM EDT 5,586 mg documented in this encounter Additional Health Concerns Assessment Noted Time PHQ-9 Depression Total Score: 0 07/24/19 23 3:00 PM EST documented as of this encounter Care Teams Instrumentation Technician Relationship Specialty Start Date End Date Trevor Rolon DO [address] [facility] [address] [place] [id number] PCP - General Lucy Christopher DO [address] [place] [address] Consulting Physician Oncology 10/17/24 documented as of this encounter
--- OUTSIDE RECORDS SUMMARY | 2025-02-22 03:20 | XMS_ITS | Encounter Summary ---
Author Organization [facility] nter Address [address] [place] [address] Care Team Providers Care Automatic Trimming Sewer Name Role Phone Trevor Rolon DO Primary Care Provider Lucy Christopher DO Unavailable Reason for Visit * Reason Comments Leg Pain Encounter Details Date Type Department Care Team (Late st Contact Info) Description 02/22/2025 3:20 AM EDT - 02/22/2025 6:50 AM EDT Emergency [facility] [address], [address] [place] [address] Raheel Christopher DO [address] [facility] [place] [address] Leg cramping (Primary Dx) Discharge Disposition: Left Against Medical Advice Social History Tobacco Use Types Packs/Day Years [...] often do you attend [facility] or adventism services? More than 4 times per year 07/24/2022 Do you belong to any clubs o r organizations such as quaker groups, unions, fraternal or athletic groups, or [...] Recorded Patient Health Questionnaire-2 Score 0 09/28/2023 [facility] of Occupat ional Health - Occupational Stress [...] Sign Reading Time Taken Comments Blood Pressure 109/78 02/22/2025 6:42 AM EDT Pulse 107 02/22/2025 6:42 AM EDT Temperature 37.1 C (98.7 F) 02/22/2025 6:42 AM EDT Respiratory Rate 16 02/22/2025 6:42 AM EDT Oxygen Saturation 98% 02/22/2025 6:42 AM EDT Inhaled Oxygen Concentration - - Weight 76.2 kg (168 lb) 02/22/2025 3:17 AM EDT Height 170.2 cm (5' 7 ) 02/22/2025 3:17 AM EDT Body Mass Index 26.31 02/22/2025 3:17 AM EDT documented in this encounter Medications at Time of Discharge bumetanide (Bumex) 1 MG tablet Take 2 tablets (2 mg) by mouth in the morning. Continuous Glucose Sensor (Dexcom G7 Sensor) miscIndications:Typ e 2 diabetes mellitus [...] 11 08/16/2024 ergocalciferol (Vitamin D-2) 1.25 MG (78691 UT) capsule Take 1 capsule (1.25 mg) [...] bedtime for itching. Insulin Pen Needle (Pen Meeker) 32G X 4 MM miscIndications:Typ e 2 [...] 07/11/2024 5 documented as of this encounter ED Notes * Raheel Christopher, DO - 02/22/2025 3:47 AM EDT HPI Chief Complaint Patient presents with ??? Leg Pain 54 yr old female presents to the ED with c/o cramping. Pt states for the last month she has been experiencing her fingers and toes locking up. Pt states tonight the same kind of symptoms happening in her legs. Pt states it feels like a angela horse, but it ain't a cramp. Pt states having an MRI with contrast yesterday. Pt denies tingling/numbness, changes in ROM, injuries, or any other associated symptoms or modifying factors. Patient History Past Medical History: Diagnosis Date ??? Anxiety ??? Arthritis ??? Chronic back pain ??? Cirrhosis nonalcoholic of the liver ??? Depression ??? Diabetes mellitus type II ??? GERD (gastroesophageal reflux disease) ??? Headache ??? Heart disease ??? High cholesterol ??? Hypertension ??? Joint pain ??? Memory loss ??? Numbness feet - left is worse than right ??? Restless leg syndrome ??? Serratia infection history of/ happened after 2nd back surgery ??? Sleep apnea ??? Spinal abscess history of per patient - happened after 2nd back surgery per patient ??? Vasculitis Past Surgical History: Procedure Laterality Date ??? APPENDECTOMY ??? BACK SURGERY L5 - S1 - has had 2 back surgery procedures for this area per patient. ??? BREAST SURGERY Bilateral reduction ??? CHOLECYSTECTOMY ??? COLONOSCOPY 2022 ??? CT CHEST ANGIOGRAM W AND/OR WO IV CONTRAST 03/25/2020 CT CHEST ANGIOGRAM W AND/OR WO IV CONTRAST [facility] D DIAG IMG ??? CYST REMOVAL Left wrist ??? ESOPHAGOGASTRODUODENOSCOPY ??? EXPLORATORY LAPAROTOMY ? pelvic pain - right ovarian cyst was found per patient ??? HYSTERECTOMY with BSO ??? OVARIAN CYST REMOVAL Right ??? TUBAL LIGATION Family History Problem Relation Name Age of Onset ??? Cancer Mother non-hodgkins lymphoma - cause of ??? Coronary artery disease Father cabg ??? Cancer Brother h/o bladder cancer ??? Diabetes Brother ??? Hypertension Neg Hx ??? Heart disease Neg Hx ??? Stroke Neg Hx ??? Hyperlipidemia Neg Hx Social History Tobacco Use ??? Smoking status: Former Current packs/day: 0.00 Average packs/day: 1 pack/day for 7.0 years (7.0 ttl pk-yrs) Types: Cigarettes Start date: 2014 Quit date: 2021 Years since quittin.6 Passive exposure: Past ??? Smokeless tobacco: Never Vaping Use ??? Vaping status: Never Used Substance Use Topics ??? Alcohol use: Never ??? Drug use: Never Review of Systems Review of Systems Constitutional: Negative for activity change, appetite change, chills, fatigue and fever. HENT: Negative for ear pain, nosebleeds, sneezing, sore throat and trouble swallowing. Eyes: Negative for pain, discharge and visual disturbance. Respiratory: Negative for cough and shortness of breath. Cardiovascular: Negative for chest pain, palpitations and leg swelling. Gastrointestinal: Negative for abdominal pain, blood in stool, constipation, diarrhea, nausea and vomiting. Endocrine: Negative for polydipsia and polyuria. Genitourinary: Negative for difficulty urinating, dysuria, flank pain and urgency. Musculoskeletal: Positive for arthralgias and myalgias. Negative for back pain, joint swelling and neck stiffness. Skin: Negative for rash and wound. Allergic/Immunologic: Negative for environmental allergies. Neurological: Negative for dizziness, tremors, syncope, light-headedness, numbness and headaches. Psychiatric/Behavioral: Negative for confusion, hallucinations and suicidal ideas. All other systems reviewed and are negative. Physical Exam Physical Exam Vitals and nursing note reviewed. Constitutional: General: She is awake. She is not in acute distress. Appearance: Normal appearance. She is well-developed. She is not ill-appearing or diaphoretic. HENT: Head: Normocephalic and atraumatic. Jaw: No trismus or swelling. Right Ear: External ear normal. Left Ear: External ear normal. Nose: Nose normal. Eyes: General: No scleral icterus. Right eye: No discharge. Left eye: No discharge. Extraocular Movements: Extraocular movements intact. Conjunctiva/sclera: Conjunctivae normal. Pupils: Pupils are equal, round, and reactive to light. Cardiovascular: Rate and Rhythm: Normal rate and regular rhythm. Pulses: Normal pulses. Heart sounds: Normal heart sounds. No murmur heard. No gallop. Pulmonary: Effort: Pulmonary effort is normal. No tachypnea, bradypnea or respiratory distress. Breath sounds: Normal breath sounds. No decreased breath sounds, wheezing, rhonchi or rales. Chest: Chest wall: No tenderness. Abdominal: General: Bowel sounds are normal. There is no distension. Palpations: Abdomen is soft. Tenderness: There is no abdominal tenderness. There is no right CVA tenderness, left CVA tenderness, guarding or rebound. Musculoskeletal: General: Tenderness (bilateral calves) present. No swelling, deformity or signs of injury. Normal range of motion. Cervical back: Normal range of motion and neck supple. Right lower leg: No edema. Left lower leg: No edema. Skin: General: Skin is warm and dry. Capillary Refill: Capillary refill takes less than 2 seconds. Coloration: Skin is not jaundiced. Findings: No erythema or rash. Neurological: General: No focal deficit present. Mental Status: She is alert and oriented to person, place, and time. GCS: GCS eye subscore is 4. GCS verbal subscore is 5. GCS motor subscore is 6. Cranial Nerves: Cranial nerves 2-12 are intact. No cranial nerve deficit. Sensory: Sensation is intact. Motor: Motor function is intact. No weakness. Coordination: Coordination is intact. Coordination normal. Psychiatric: Attention and Perception: Attention normal. Mood and Affect: Mood normal. Speech: Speech normal. Behavior: Behavior normal. Behavior is cooperative. Cognition and Memory: Cognition and memory normal. Judgment: Judgment normal. ED Triage Vitals [02/22/25316] Temp Heart Rate Resp BP 98.7 ??F (37.1 ??C) 101 26 99/69 SpO2 Temp Source Heart Rate Source Patient Position 99 % Oral -- Lying BP Location FiO2 (%) Left arm -- Labs Reviewed CBC WITH AUTO DIFFERENTIAL BASIC METABOLIC PANEL MAGNESIUM Radiology Reviewed - No data to display Medical Decision Making (MDM) & ED Course Medical Decision Making Labs reviewed. No evidence of acute process noted on lab evaluation. Patient was given multiple doses of pain control in the emergency department and on reevaluation states that she was still having pain. I offered to provide additional pain medication and evaluation in the emergency department however the patient became very upset and demanded to leave AGAINST MEDICAL ADVICE. Prior to leaving she was quoted as saying get me the fuck out of here because you have not done shit for me. ED Course as of 02/23/25407 [facility] Feb 22, 2025 0633 Patient requesting to leave AGAINST MEDICAL ADVICE. Patient states get me the fuck out of here, you all have not done shit for me . I attempted to reconcile the visit and asked patient there isanything else I can do for her and she became upset and requested to leave immediately. [AJ] ED Course User Index [AJ] Raheel Christopher DO Diagnoses as of 02/23/25407 Leg cramping No orders to display Raheel Christopher DO 02/23/25407 * Misty Johnson RN - 02/22/2025 3:16 AM EDT 54 yo f presents to the ED via [facility] from home for the evaluation of intermittent bilateral lower extremity pain. Pt reports it feels like severe cramps. Pt dnies any injury. NAD noted during triage. documented in this encounter Plan of Treatment Upcoming Encounters Date Type Department Care Team (Late st Contact Info) Description 04/30/2025 9:00 AM EDT Appointment [facility] [address] [place] [address] 05/07/2025 3:00 PM EDT Appointment [facility] MAMMOGRAPHY SERVICES [address], [facility] [place] [address] 06/18/2025 10:30 AM EST Office Visit [facility] GASTROENTEROLOGY PRACTICE [address] [place] [address] 06/27/2025 10:00 AM EST Office Visit [facility] SLEEP LAB PRACTICE [address] [place] [phone] Marcelina Hyde NP [address] [place] [phone] 08/16/2025 10:00 AM EST Office Visit [facility] ENDOCRINOLOGY PRACTICE [address] [place] [address] Brigitte Mahoney NP [address] [place] [phone] 09/18/2025 1:30 PM EDT Office Visit [facility] RHEUMATOLOGY PRACTICE [address] [place] [address] Suman Treviño MD [address] [place] [address] 12/13/2025 11:00 AM EDT Office Visit [facility] OBGYN [facility] [address] [place] [phone] Janice Woodward, CLAU [address] [place] [address] documented as of this encounter Procedures Procedure Name Priority Date/Time Associated Diagnosis Comments CBC WITH AUTO DIFFERENTIAL STAT 02/22/2025 3:57 AM EDT MAGNESIUM STAT 02/22/2025 3:57 AM EDT BASIC METABOLIC PANEL STAT 02/22/2025 3:57 AM EDT documented in this encounter Results * Magnesium (02/22/2025 3:57 AM EDT) Pathologist [facility] Magnesium 1.9 1.8 - 2.4 mg/dL 02/22/2025 4:34 AM EDT LABORATORY Blood Venous blood specimen / Unknown Venipuncture / Unknown 02/22/2025 3:57 AM EDT 02/22/2025 4:08 AM EDT us Arch Meri Christopher DO LAB BLOOD ORDERABLES Fi nal Result LABORATORY [address] [place] [address], * (ABNORMAL) Basic metabolic panel (02/22/2025 3:57 AM EDT) Pathologist [facility] Glucose 123(H) 58 - 104 mg/dL 02/22/2025 4:34 AM EDT LABORATORY Sodium 131(L) 134 - 143 mmol/L 02/22/2025 4:34 AM EDT LABORATORY Potassium 4.1 3.2 - 4.6 mmol/L 02/22/2025 4:34 AM EDT LABORATORY Chloride 100 99 - 108 mmol/L 02/22/2025 4:34 AM EDT LABORATORY CO2 25 19 - 29 mmol/L 02/22/2025 4:34 AM [facility] Anion Gap 6 5 - 15 mmol/L 02/22/2025 4:34 AM [facility] BUN 16 7 - 20 mg/dL 02/22/2025 4:34 AM [facility] Creatinine 0.87 <=1.20 mg/dL 02/22/2025 4:34 AM [facility] BUN/Creatinine Ratio 18.39 10.00 - 20.00 ratio 02/22/2025 4:34 AM [facility] Calcium 8.8 7.9 - 11.1 mg/dL 02/22/2025 4:34 AM [facility] eGFR (CKD-EPI) 75.2 >60.0 - 200.0 mL/min/1.7 3m*2 02/22/2025 4:34 AM [facility] Blood Venous blood specimen / Unknown Venipuncture / Unknown 02/22/2025 3:57 AM EDT 02/22/2025 4:08 AM EDT us Arch Meri Christopher DO LAB BLOOD ORDERABLES Fi nal Result Performing Organization Address City/State/[facility] Co de Phone Number LABORATORY [address] [place] [address], * (ABNORMAL) CBC auto differential (02/22/2025 3:57 AM EDT) Auto WBC 5.7 3.8 - 11.0 10*3/uL 02/22/2025 4:12 AM [facility] RBC 3.78 3.73 - 5.13 10*6/uL 02/22/2025 4:12 AM [facility] Hemoglobin 12.5 11.2 - 15.3 g/dL 02/22/2025 4:12 AM [facility] Hematocrit 36.9 32.6 - 44.6 % 02/22/2025 4:12 AM [facility] MCV 97.5(H) 78.8 - 96.0 fL 02/22/2025 4:12 AM [facility] MCH 33.0 26.2 - 33.0 pg 02/22/2025 4:12 AM [facility] MCHC 33.9 32.7 - 35.1 g/dL 02/22/2025 4:12 AM [facility] RDW 13.8 12.1 - 16.1 % 02/22/2025 4:12 AM [facility] MPV 7.8 7.0 - 10.6 fL 02/22/2025 4:12 AM [facility] Neutrophils % 70 47 - 79 % 02/22/2025 4:12 AM [facility] Lymphocytes % 16 13 - 41 % 02/22/2025 4:12 AM [facility] Monocytes % 10 3 - 11 % 02/22/2025 4:12 AM [facility] Eosinophils % 3 0 - 6 % 02/22/2025 4:12 AM [facility] Basophils % 1 0 - 2 % 02/22/2025 4:12 AM [facility] Neutrophils Absolute 4.00 1.90 - 7.50 10*3/uL 02/22/2025 4:12 AM [facility] Lymphocytes Absolute 0.90 0.80 - 3.20 10*3/uL 02/22/2025 4:12 AM [facility] Monocytes Absolute 0.60 0.10 - 0.90 10*3/uL 02/22/2025 4:12 AM [facility] Eosinophils Absolute 0.20 0.00 - 0.40 10*3/uL 02/22/2025 4:12 AM [facility] Basophils Absolute 0.00 0.00 - 0.20 10*3/uL 02/22/2025 4:12 AM [facility] Platelets 61(L) 138 - 402 10*3/uL 02/22/2025 4:12 AM [facility] Blood Venous blood specimen / Unknown Venipuncture / Unknown 02/22/2025 3:57 AM EDT 02/22/2025 4:07 AM EDT us Arch Meri Ashwin DO LAB BLOOD ORDERABLES Fi nal Result LABORATORY [address] [place] [address], documented in this encounter Visit Diagnoses Diagnosis Leg cramping- Primary documented in this encounter Administered Medications Inactive Administered Medications - up to 3 most recent administrations Medication Order MAR Action Action Date Dose Rate Site ketorolac (Toradol) injection 15 mg 15 mg, Intravenous, Once, On Kirstin 02/22/25 at 0350, For 1 dose, Indications: Moderate to Severe PainIndications:Moderate to Severe Pain Given 02/22/2025 3:54 AM EDT 15 mg morphine 4 mg 4 mg, Intravenous, Once, On Kirstin 02/22/25 at 0520, For 1 dose Given 02/22/2025 5:20 AM EDT 4 mg orphenadrine (Norflex) injection 30 mg 30 mg, Intravenous, Once, On Kirstin 02/22/25 at 0350, For 1 dose Given 02/22/2025 4:00 AM EDT 30 mg documented in this encounter Active and Recently Administered Medications Times are shown in EDT. Scheduled Medication Order 02/20/2025 02/21/2025 02/22/2025 ketorolac (Toradol) injection 15 mg (COMPLETED) 15 mg, Intravenous, Once, On Kirstin 02/22/25 at 0350, For 1 dose, Indications: Moderate to Severe Pain 0354 (Given - Provid er: Danni Almaraz RN) morphine 4 mg (COMPLETED) 4 mg, Intravenous, Once, On Kirstin 02/22/25 at 0520, For 1 dose 0520 (Given - Provid er: Danni Almaraz RN) orphenadrine (Norflex) injection 30 mg (COMPLETED) 30 mg, Intravenous, Once, On Kirstin 02/22/25 at 0350, For 1 dose 0400 (Given - Provid er: Danni Almaraz RN) documented in this encounter Additional Health Concerns Assessment Noted Time PHQ-9 Depression Total Score: 0 07/24/19 23 3:00 PM EST documented as of this encounter Care Teams Automatic Trimming Sewer Relationship Specialty Start Date End Date Trevor Rolon DO [address] [facility] [address] [place] [phone] PCP - General Lucy Christopher DO [address] [place] [address] Consulting Physician Oncology 10/17/24 documented as of this encounter
--- OUTSIDE RECORDS SUMMARY | 2025-02-26 12:50 | XMS_ITS | Encounter Summary ---
Author Organization [facility] nter Address [address] [place] [address] Care Team Providers Care Dairy Technician Name Role Phone Trevor Rolon DO Primary Care Provider Lucy Christopher DO Unavailable Encounter Details Date Type Department Care Team (Latest Contact Info) Description 02/26/2025 12:50 PM EDT - 02/26/2025 11:59 PM EDT Hospital Encounter [facility] D [address], [place] [phone] Type 2 diabetes mellitus with hyperglycemia, with long-term current use of insulin; Other fatigue; Hyperlipidemia Discharge Disposition: Home or Self Care Social [...] How often do you attend chur or hindu services? More than 4 times per year [...] mouth in the morning. Continuous Glucose Sensor (PEMREDcom G7 Sensor) miscIndications:Typ e 2 diabetes mellitus [...] 11 08/16/2024 ergocalciferol (Vitamin D-2) 1.25 MG (83083 UT) capsule Take 1 capsule (1.25 mg) [...] daily dose 50 units 15 mL 3 02/26/2025 Insulin Pen Needle (Pen [place]) 32G X 4 MM miscIndications:Typ e 2 [...] a day as needed for anxiety 5 LACTULOSE PO Take by mouth in [...] Info) Description 04/30/2025 9:00 AM EDT Appointment [facility]TRASOUND [address] 2[address] [place] [address] 05/07/2025 3:00 PM EDT Appointment [facility]AMMOGRAPHY SERVICES [facility] D [address] , [facility] D [place] [phone] 06/18/2025 10:30 AM EST Office Visit [facility]ACTICE [address] [facility], 2nd [place] [address] 06/27/2025 10:00 AM EST Office Visit [facility] SLEEP LAB PRACTICE [address] [facility], [place] [address] NovemberMarcelina NP [address] [place] [phone] 08/16/2025 10:00 AM EST Office Visit [facility] ENDOCRINOLOGY PRACTICE [address] [place] [address] Brigitte Mahoney NP [address] [place] [address] 09/18/2025 1:30 PM EDT Office Visit [facility] RHEUMATOLOGY PRACTICE [address] 8th [place] [address] Suman Treviño MD [address] [facility] [place] [address] 12/13/2025 11:00 AM EDT Office Visit [facility] [address], 7th [place] [address] Janice Woodward, CLAU [address] [place] [address] documented as of this encounter Procedures Procedure Name Priority Date/Time Associated Diagnosis Comments CBC WITH AUTO DIFFERENTIAL Routine 02/26/2025 1:00 PM EDT Type 2 diabetes mellitus with hyperglycemia, with long-term current use of insulin Other fatigue Hyperlipidemia VITAMIN D, TOTAL Routine 02/26/2025 1:00 PM EDT Type 2 diabetes mellitus with hyperglycemia, with long-term current use of insulin Other fatigue Hyperlipidemia HEMOGLOBIN A1C Routine 02/26/2025 1:00 PM EDT Type 2 diabetes mellitus with hyperglycemia, with long-term current use of insulin Other fatigue Hyperlipidemia FOLATE Routine 02/26/2025 1:00 PM EDT Type 2 diabetes mellitus with hyperglycemia, with long-term current use of insulin Other fatigue Hyperlipidemia VITAMIN B12 Routine 02/26/2025 1:00 PM EDT Type 2 diabetes mellitus with hyperglycemia, with long-term current use of insulin Other fatigue Hyperlipidemia LIPID PANEL Routine 02/26/2025 1:00 PM EDT Type 2 diabetes mellitus with hyperglycemia, with long-term current use of insulin Other fatigue Hyperlipidemia COMPREHENSIVE METABOLIC PANEL Routine 02/26/2025 1:00 PM EDT Type 2 diabetes mellitus with hyperglycemia, with long-term current use of insulin Other fatigue Hyperlipidemia documented in this encounter Results * Vitamin D 25 hydroxy (02/26/2025 1:00 PM EDT) Vitamin D, Total 67 30 - 100 ng/mL 02/26/2025 3:19 PM EDT [facility] Blood Venous blood specimen / Unknown Venipuncture / Unknown 02/26/2025 1:00 PM EDT 02/26/2025 1:00 PM EDT us Trevor Rolon DO LAB BLOOD ORDERABLES Fi nal Result Performing Organization Address City/[facility]/ZIP Co de Phone Number [facility] [address] [place] [address], [place] [phone] * Folate (02/26/2025 1:00 PM EDT) [facility] Folate 15.3 5.9 - 24.8 ng/mL 02/26/2025 3:23 PM EDT [facility] Blood Venous blood specimen / Unknown Venipuncture / Unknown 02/26/2025 1:00 PM EDT 02/26/2025 1:00 PM EDT us Trevor Rolon DO LAB BLOOD ORDERABLES Fi nal Result Performing Organization Address [facility]/ZIP Co de Phone Number [facility] [address] [place] [address], [place] [phone] * (ABNORMAL) Vitamin B12 (02/26/2025 1:00 PM EDT) [facility] Vitamin B-12 987.1(H) 180.0 - 914.0 pg/mL 02/26/2025 3:23 PM EDT [facility] Blood Venous blood specimen / Unknown Venipuncture / Unknown 02/26/2025 1:00 PM EDT 02/26/2025 1:00 PM EDT us Trevor Rolon DO LAB BLOOD ORDERABLES Fi nal Result Performing Organization Address [facility]/ZIP Co de Phone Number [facility] [address] [place] [address], [place] [phone] * (ABNORMAL) Lipid panel (02/26/2025 1:00 PM EDT) [facility] Triglycerides 84 <=150 mg/dL 02/26/2025 3:05 PM EDT [facility] Cholesterol 185 102 - 200 mg/dL 02/26/2025 3:05 PM EDT [facility] HDL 52 30 - 71 mg/dL 02/26/2025 3:05 PM EDT [facility] Cholesterol/HDL Ratio 3.6 02/26/2025 3:05 PM EDT [facility] LDL-C (FRIEDEWALD) 116(H) <=100 mg/dL 02/26/2025 3:05 PM EDT [facility] Blood Venous blood specimen / Unknown Venipuncture / Unknown 02/26/2025 1:00 PM EDT 02/26/2025 1:00 PM EDT Trevor Rolon DO LAB BLOOD ORDERABLES Fi nal Result Performing Organization Address City/[facility]/ZIP Co de Phone Number [facility] [address] [place] [address], * Hemoglobin A1c (02/26/2025 1:00 PM EDT) [facility] Hemoglobin A1C 5.1 3.0 - 6.0 % 02/26/2025 3:25 PM EDT [facility] Comment: Additional Reference Ranges: 6.0 - 9.0% Controlled Diabetic >9.0 Poorly Controlled Diabetic *Hemoglobin A1c is an FDA approved test for monitoring ore charger glucose control in individuals with diabetes. It is not an approved screening test for diagnosing type 1 and type 2 diabetes. Results of Hemoglobin A1c are not reliable in patients with chronic blood loss, consequent variable erythrocyte lifespan, hemolytic diseases, , and significant blood loss. MEAN BLOOD GLUCOSE 99.67 mg/dl 02/26/2025 3:25 PM EDT [facility] Blood Venous blood specimen / Unknown Venipuncture / Unknown 02/26/2025 1:00 PM EDT 02/26/2025 1:00 PM EDT Trevor Rolon DO LAB BLOOD ORDERABLES Fi nal Result [facility] [address] [facility] [place] [address], [place] [phone] * (ABNORMAL) Comprehensive metabolic panel (02/26/2025 1:00 PM EDT) Sodium 133(L) 134 - 143 mmol/L 02/26/2025 3:05 PM [facility] Potassium 3.6 3.2 - 4.6 mmol/L 02/26/2025 3:05 PM [facility] Chloride 100 99 - 108 mmol/L 02/26/2025 3:05 PM [facility] CO2 28 19 - 29 mmol/L 02/26/2025 3:05 PM [facility] Anion Gap 5 5 - 15 mmol/L 02/26/2025 3:05 PM [facility] BUN 15 7 - 20 mg/dL 02/26/2025 3:05 PM [facility] Creatinine 0.70 <=1.20 mg/dL 02/26/2025 3:05 PM [facility] BUN/Creatinine Ratio 21.43(H) 10.00 - 20.00 ratio 02/26/2025 3:05 PM [facility] Glucose 122(H) 58 - 104 mg/dL 02/26/2025 3:05 PM [facility] Calcium 8.6 7.9 - 11.1 mg/dL 02/26/2025 3:05 PM [facility] AST 70(H) 10 - 28 U/L 02/26/2025 3:05 PM [facility] ALT (SGPT) 49(H) <=40 U/L 02/26/2025 3:05 PM [facility] Alkaline Phosphatase 176(H) 29 - 108 U/L 02/26/2025 3:05 PM [facility] Total Protein 6.3 5.9 - 7.9 g/dL 02/26/2025 3:05 PM [facility] Albumin 3.1(L) 3.5 - 5.1 g/dL 02/26/2025 3:05 PM EDT [facility] Globulin, Total 3.2 2.4 - 4.8 g/dL 02/26/2025 3:05 PM EDT [facility] A/G Ratio 1.0 0.6 - 1.6 02/26/2025 3:05 PM EDT [facility] Total Bilirubin 2.5(H) 0.3 - 1.0 mg/dL 02/26/2025 3:05 PM EDT [facility] eGFR (CKD-EPI) 97.9 >60.0 - 200.0 mL/min/1. 73m*2 02/26/2025 3:05 [facility] Blood Venous blood specimen / Unknown Venipuncture / Unknown 02/26/2025 1:00 PM EDT 02/26/2025 1:00 PM EDT Trevor Rolon DO LAB BLOOD ORDERABLES Fi nal Result [facility] [address] [place] [address], * (ABNORMAL) CBC auto differential (02/26/2025 1:00 PM EDT) Auto WBC 4.9 3.8 - 11.0 10*3/uL 02/26/2025 2:40 PM [facility] RBC 3.89 3.73 - 5.13 10*6/uL 02/26/2025 2:40 PM [facility] Hemoglobin 13.0 11.2 - 15.3 g/dL 02/26/2025 2:40 PM [facility] Hematocrit 38.2 32.6 - 44.6 % 02/26/2025 2:40 PM [facility] MCV 98.3(H) 78.8 - 96.0 fL 02/26/2025 2:40 PM [facility] MCH 33.4(H) 26.2 - 33.0 pg 02/26/2025 2:40 PM [facility] MCHC 33.9 32.7 - 35.1 g/dL 02/26/2025 2:40 PM [facility] RDW 14.6 12.1 - 16.1 % 02/26/2025 2:40 PM [facility] MPV 8.3 7.0 - 10.6 fL 02/26/2025 2:40 PM [facility] Neutrophils % 67 47 - 79 % 02/26/2025 2:40 PM [facility] Lymphocytes % 19 13 - 41 % 02/26/2025 2:40 PM [facility] Monocytes % 9 3 - 11 % 02/26/2025 2:40 PM [facility] Eosinophils % 4 0 - 6 % 02/26/2025 2:40 PM [facility] Basophils % 0 0 - 2 % 02/26/2025 2:40 PM [facility] Neutrophils Absolute 3.30 1.90 - 7.50 10*3/uL 02/26/2025 2:40 PM [facility] Lymphocytes Absolute 1.00 0.80 - 3.20 10*3/uL 02/26/2025 2:40 PM [facility] Monocytes Absolute 0.40 0.10 - 0.90 10*3/uL 02/26/2025 2:40 PM [facility] Eosinophils Absolute 0.20 0.00 - 0.40 10*3/uL 02/26/2025 2:40 PM [facility] Basophils Absolute 0.00 0.00 - 0.20 10*3/uL 02/26/2025 2:40 PM [facility] Platelets 74(L) 138 - 402 10*3/uL 02/26/2025 2:40 PM [facility] Blood Venous blood specimen / Unknown Venipuncture / Unknown 02/26/2025 1:00 PM EDT 02/26/2025 1:00 PM EDT Trevor Rolon DO LAB BLOOD ORDERABLES Fi nal Result [facility] [address] [place] [address], documented in this encounter Visit Diagnoses Diagnosis Type 2 diabetes mellitus with hyperglycemia, with long-term current use of insulin Other fatigue Hyperlipidemia Other and unspecified hyperlipidemia documented in this encounter Additional Health Concerns Assessment Noted Time PHQ-9 Depression Total Score: 0 07/24/19 23 3:00 PM EST documented as of this encounter Care Teams Dairy Technician Relationship Specialty Start Date End Date Trevor Rolon DO [address] [facility] [address] [place] [phone] PCP - General Lucy Christopher DO [address] [facility] [place] [address] Consulting Physician Oncology 10/17/24 documented as of this encounter
--- OUTSIDE RECORDS SUMMARY | 2025-02-27 13:00 | XMS_ITS | Encounter Summary ---
Author Organization [facility] nter Address [address] [place] [address] Care Team Providers Care Banquet Coordinator Name Role Phone Trevor Rolon DO Primary Care Provider Lucy Christopher DO Unavailable Reason for Visit * Reason Comments Achilles Pain Encounter Details Date Type Department Care Team (Latest Contact Info) Description 02/27/2025 1:00 PM EDT Office Visit [facility] ORTHOPEDIC PODIATRY PRACTICE [address], 6th [place] [address] Alexandr Zarate DPM [address] [facility] [place] [address] Diabetic polyneuropathy associated with type 2 diabetes mellitus (Primary Dx) Social History Tobacco Use Types [...] How often do you attend chur or congregation services? More than 4 times per year 07/24/2022 Do you belong to any clubs o r organizations such as sabianist groups, unions, fraternal or athletic groups, or [...] Recorded Patient Health Questionnaire-2 Score 0 09/28/2023 [place] [employer] - Occupational Stress [...] Sign Reading Time Taken Comments Blood Pressure 110/67 02/27/2025 1:17 PM EDT Pulse 113 02/27/2025 1:17 PM EDT Temperature - - Respiratory Rate - - Oxygen Saturation - - Inhaled Oxygen Concentration - - Weight 78.5 kg (173 lb) 02/27/2025 1:17 PM EDT Height 170.2 cm (5' 7 ) 02/27/2025 1:17 PM EDT Body Mass Index 27.1 02/27/2025 1:17 PM EDT documented in this encounter Progress Notes * John vAiles - 02/27/2025 1:00 PM EDT Subjective Patient ID: Trudy Peña is a 54 y.o. female who presents for No chief complaint on file.. Pt is in clinic today due to a follow up for achilles tendonitis of left lower extremity. Pt is ambulatory without assistance and reports minimal pain in her feet and ankles that she would rate 3/10.Pt also complains that her toes are beginning to lock up along with her fingers causing her pain and discomfort. Pt is diabetic and reports her latest A1c 5.1 and glucose 111. Social History: Social History Socioeconomic History Marital [...] 2021 Years since quittin.6 Passive exposure: Past Smokeless tobacco: Never Vaping Use Vaping status: Never Used Substance and Sexual Activity Alcohol use: Never Drug use: Never Sexual activity: Yes Partners: Male control/protection: Surgical Comment: hysterectomy Other Topics Concern Not on file Social [...] min Stress: No Stress Concern Present (07/24/2022) [place] [employer] - Occupational Stress Questionnaire Feeling of Stress : Not at all Social Connections: Unknown (04/19/2023) Received from [facility] Family and Community Support Help with Day-to-Day Activities: Not on file Lonely or Isolated: Not on file Intimate Partner Violence: Unknown (04/19/2023) Received from [facility] Abuse Screen Unsafe at Home or Work/School: Not on file Feels Threatened by Someone?: Not on file Does Anyone Keep You from Contacting Others or Doint Things Outside the Home?: Not on file Physical Sign of Abuse Present: Not on file Housing Stability: Unknown (04/19/2023) Received from [facility] Housing Stability Current Living Arrangements: Not on file Potentially Unsafe Housing Conditions: Not on file Counseling given: Not Answered Review of Systems Constitutional: Negative. HENT: Negative. Eyes: Negative. Respiratory: Negative. Cardiovascular: Negative. Gastrointestinal: Negative. Endocrine: Negative. Genitourinary: Negative. Musculoskeletal: Negative. Skin: Negative. Allergic/Immunologic: Negative. Neurological: Negative. Hematological: Negative. Psychiatric/Behavioral: Negative. All other systems reviewed and are negative. Objective Foot Exam General General Appearance: appears [...] polyneuropathy associated with type 2 diabetes mellitus A comprehensive diabetic foot examination was performed today. We discussed the systemic risks of diabetes and the importance of proper glucose control. We discussed patients last Hemoglobin A1C and other lab results as well as their most recent blood sugar testing. We discussed the dangers of neuropathy or excessive pain. Patient was given a risk stratification of 1 and is recommend to follow upevery 3 months. We discussed areas of high pressure on the patient's foot as well as the risks and offloading solutions. We reviewed the proper foot care [...] prescribed. We discussed use of appropriate therapy. Patient currently takes Lyrica without improvement in pain and we will order Qutenza for neuropathic related pain. documented in this encounter Miscellaneous Notes * Patient Education - John Aviles - 02/27/2025 1:15 PM EDT Images from the original note were not included. Patient Education Table of Contents Achilles Tendinitis To view videos and all your education online visit, [email or web address] or scan this QR code with your smartphone. Access to this content will in one year. Achilles Tendinitis Achilles tendinitis is inflammation of the tough, cord-like band that connects the lower leg muscles to the heel bone (Achilles tendon). This is often caused by using the tendon and ankle joint too much. In most cases, Achilles tendinitis gets better over time with treatment and home care. It can take weeks or months to fully heal. What are the causes? This condition may be caused by: A sudden increase in exercise or activity, such as running. Doing the same exercises or activities, such as jumping, over and over. Not warming up your calf muscles before you exercise. Exercising in shoes that are worn out or not made for exercise. Having arthritis or a bone growth (spur) on the back of your heel. This can rub against the tendon and hurt it. Age-related wear and tear. Tendons become less flexible with age and are more likely to be injured. What are the signs or symptoms? Common symptoms of this condition include: Pain in your Achilles tendon or in the back of your leg, just above your heel. The pain may get worse when you exercise. Stiffness or soreness in the back of your leg. You may feel it most often in the morning. Swelling of the skin over the Achilles tendon. Thickening of the tendon. Trouble standing on tiptoe. How is this diagnosed? This condition is diagnosed based on your symptoms and a physical exam. You may also have tests, such as: X-rays. MRI. Ultrasound. How is this treated? The goal of treatment is to relieve symptoms and help your injury heal. You may need to: Decrease or stop activities that caused the tendinitis. You may be told to switch to low-impact exercises like biking or swimming. Ice the injured area. Do physical therapy. This may include strengthening and stretching exercises. Take NSAIDs, such as ibuprofen. These can help with pain and swelling. Use supportive shoes, wraps, heel lifts, or a walking boot (air cast). Have surgery. This may be done if your symptoms do not get better with other treatments. Use high-energy waves to start the healing process (extracorporeal shock wave therapy). This is rare. Get an injection of medicines that help with inflammation (corticosteroids). This is rare. Follow these instructions at home: If you have an air cast: Wear the air cast as told by your health care provider. Remove it only as told by your provider. Check the skin around the air cast every day. Tell your provider about any concerns. Loosen the air cast if your toes tingle, become numb, or turn cold and blue. Keep the air cast clean. If the air cast is not waterproof: ? Do not let it get wet. ? Cover it with a watertight covering when you take a bath or shower. Managing pain, stiffness, and swelling If told, put ice on the injured area. ? If you have a removable air cast, remove it as told by your provider. ? Put ice in a plastic bag. ? Place a towel between your skin and the bag. ? Leave the ice on for 20 minutes, 2?3 times a day. If your skin turns bright red, remove the ice right away to prevent skin damage. The risk of damageis higher if you cannot feel pain, heat, or cold. Move your toes often to reduce stiffness and swelling. Raise (elevate) your foot above the level of your heart while you are sitting or lying down. Activity Do not do activities that cause pain. Ask your provider when it is safe to drive if you have an air cast on your foot. If you go to physical therapy, do exercises as told by your provider or therapist. Return to your normal activities as told by your provider. Ask your provider what activities are safe for you. General instructions Take aguz-xnu-phuzrfu and prescription medicines only as told by your provider. If told, wrap your foot with an elastic bandage or other wrap. This can help to keep your tendon from moving too much while it heals. Your provider will show you how to wrap your foot. Wear supportive shoes or heel lifts only as told by your provider. Contact a health care provider if: Your symptoms get worse. Your pain does not get better with medicine. You have new symptoms that you cannot explain. You have warmth and swelling in your foot. You have a fever. Get help right away if: You hear a sudden popping sound in your Achilles tendon and then have severe pain. You cannot move your toes or foot. You cannot put any weight on your foot. Your foot or toes become numb and look white or blue even after you loosen your bandage or air cast. This information is not intended to replace advice given to you by your health care provider. Make sure you discuss any questions you have with your health care provider. Document Released: 2006-04-07 Document Updated: 2023-03-19 Document Reviewed: 2023-03-19 [employer] Patient Education ? 2024 [employer] documented in this encounter Plan of Treatment Upcoming Encounters Date Type Department Care Team (Late st Contact Info) Description 04/30/2025 9:00 AM EDT Appointment [facility] [address], [address]nd Floor [place] [address] 05/07/2025 3:00 PM EDT Appointment [facility] [place] D [address], [place] [address] 06/18/2025 10:30 AM EST Office Visit [facility] GASTROENTEROLOGY PRACTICE [address], 2nd [place] [address] 06/27/2025 10:00 AM EST Office Visit [facility] SLEEP LAB PRACTICE [address], [facility] [place] [address] Marcelina Hyde NP [address] [place] [address] 08/16/2025 10:00 AM EST Office Visit [facility] ENDOCRINOLOGY PRACTICE [address], 8th Floor [facility] [place] [address] Brigitte Mahoney NP [address] [facility] [place] [address] 09/18/2025 1:30 PM EDT Office Visit [facility] RHEUMATOLOGY PRACTICE [address], 8th Floor [facility] [place] [address] Suman Treviño MD [address] [facility]. [place] [address] 12/13/2025 11:00 AM EDT Office Visit [facility] OBGYN PRACTICE [address], 7th [place] [address] Janice Woodward NP [address] [place] [address] documented as of this encounter Visit Diagnoses Diagnosis Diabetic polyneuropathy associated with type 2 diabetes mellitus- Primary documented in this encounter Additional Health Concerns Assessment Noted Time PHQ-9 Depression Total Score: 0 07/24/19 23 3:00 PM EST documented as of this encounter Care Teams Banquet Coordinator Relationship Specialty Start Date End Date Trevor Rolon DO [address] [facility] [address] [place] [address] PCP - General Lucy Christopher DO [address] [place] [address] Consulting Physician Oncology 10/17/24 documented as of this encounter
--- OUTSIDE RECORDS SUMMARY | 2025-02-27 16:50 | XMS_ITS | Encounter Summary ---
Author Organization [facility] nter Address [address] [place] [address] Care Team Providers Care Employment Specialist/Program Manager Name Role Phone Trevor Rolon DO Primary Care Provider Lucy Christopher DO Unavailable Encounter Details Date Type Department Care Team (Latest Contact Info) Description 02/27/2025 4:50 PM EDT - 02/27/2025 11:59 PM EDT Hospital Encounter [facility] - [facility]AL [facility]AGNOST[facility] BLDG D [address] [place] [id number] Cirrhosis Discharge Disposition: Home or Self Care Social [...] 07/24/2022 How often do you attend [facility] or congregational services? More than 4 times per year 07/24/2022 Do you belong to any clubs o r organizations such as caodaism groups, unions, fraternal or athletic groups, or [...] Recorded Patient Health Questionnaire-2 Score 0 09/28/2023 [facility] - Occupational [...] mouth in the morning. Continuous Glucose Sensor (Ubersnap G7 Sensor) miscIndications:Typ e 2 diabetes mellitus [...] 11 08/16/2024 ergocalciferol (Vitamin D-2) 1.25 MG (59023 UT) capsule Take 1 capsule (1.25 mg) [...] mL 3 02/26/2025 Insulin Pen Needle (Pen Bonduel) 32G X 4 MM miscIndications:Typ e 2 diabetes mellitus with hyperglycemia, with long-term current use of insulin Use 4 per day 100 each 3 09/01/2024 Lantus SoloStar 100 UNIT/ML penIndications:Type 2 diabetes mellitus with hyperglycemia, with long-term current use of insulin Inject 15 Units under the skin in the morning. Titrate to target glucose. Max daily dose 50 units. 15 mL 3 02/27/2025 Lifitegrast (Xiidra) 5 % solutionIndications :Keratoconjunctivit is [...] before breakfast. Do not crush or chew. lidocaine (Lidoderm) 5 % patch Apply 1 [...] Info) Description 04/30/2025 9:00 AM EDT Appointment [facility] ULTRASOUND [address] [place] [address] 05/07/2025 3:00 PM EDT Appointment [facility] MAMMOGRAPHY SERVICES [facility] D [address] [facility], [facility] D [place] [phone] 06/18/2025 10:30 AM EST Office Visit [facility] GASTROENTEROLOGY PRACTICE [address] [facility]nd [place] [address] 06/27/2025 10:00 AM EST Office Visit [facility] SLEEP LAB PRACTICE [address] [facility] [place] [address] NovemberMarcelina NP [address] [place] [phone] 08/16/2025 10:00 AM EST Office Visit [facility] ENDOCRINOLOGY PRACTICE [address] [facility] [place] [address] Brigitte Mahoney NP [address] [place] [address] 09/18/2025 1:30 PM EDT Office Visit [facility] RHEUMATOLOGY PRACTICE [address] [facility], [address] [place] [address] Suman Treviño MD [address] [facility] [address] 12/13/2025 11:00 AM EDT Office Visit [facility] [address] [place] [address] Janice Woodward NP [address] [place] [address] documented as of this encounter Procedures Procedure Name Priority Date/Time Associated Diagnosis Comments PROTIME-INR Routine 02/27/2025 4:54 PM EDT Cirrhosis documented in this encounter Results * (ABNORMAL) Protime-INR (02/27/2025 4:54 PM EDT) Protime 14.4(H) 10.2 - 12.9 seconds 02/27/2025 6:03 PM EDT [facility] INR 1.28(H) 0.90 - 1.10 02/27/2025 6:03 PM EDT [facility] Comment: The INR should only be used in stable anticoagulated patients. Recommended therapeutic ranges: Condition INR Prevention or treatment of DVT 2.0-3.0 Acute [place] Prevention of Stroke 2.0-3.0 Prevention of recurrent [place] 2.5-3.5 Atrial fibrillation Prevention of systemic embolism 2.0-3.0 Cardiac valve replacement (mechanical valves) 2.5-3.5 Blood Venous blood specimen / Unknown Venipuncture / Unknown 02/27/2025 4:54 PM EDT 02/27/2025 4:54 PM EDT us Laquita WELSH LAB BLOOD ORDERABLES Final Re sult [facility] [address] [place] [address], documented in this encounter Visit Diagnoses Diagnosis Cirrhosis Cirrhosis of liver without mention of alcohol documented in this encounter Additional Health Concerns Assessment Noted Time PHQ-9 Depression Total Score: 0 07/24/19 23 3:00 PM EST documented as of this encounter Care Teams Employment Specialist/Program Manager Relationship Specialty Start Date End Date Trevor Rolon DO [address] [facility] [address] [place] [address] PCP - General Lucy Christopher DO [address] [facility] [place] [id number] Consulting Physician Oncology 10/17/24 documented as of this encounter
--- OUTSIDE RECORDS SUMMARY | 2025-03-08 08:00 | XMS_ITS | Encounter Summary ---
Author Organization [facility] Address [address] [place] [address] Care Team Providers Care [employer] Delivery Driver Name Role Phone Trevor Rolon DO Primary Care Provider [phone] Mc Grant DO Unavailable [phone] Reason for Referral * Consultation (Routine) - Authorized Specialty Diagnoses / Procedures Referred By Truong bella Referred To Contact Neurosurgery Diagnoses Lumbosacral radiculopathy Claire Davidson MD [address] [address] Phone: tel: fax: Referral ID Status Reason Start Date Expiration Date Visits Requested Visits Authorized [id number] Authorized Specialty Services Required 03/08/2025 09/07/2026 1 1 * Imaging (Routine) - Authorized Specialty Diagnoses / Procedures Referred By Truong bella Referred To Contact Radiology Diagnoses Lumbosacral radiculopathy Procedures MR Cervical Spine wo IV Contrast Claire Davidson MD [address] [address] Phone: tel: fax: Referral ID Status Reason Start Date Expiration Date V isits Requested Visits Authorized [id number] Authorized 03/08/2025 09/07/2026 1 1 * Other Medical (Routine) - Pending Review Specialty Diagnoses / Procedures Referred By Truong bella Referred To Contact Neurology Diagnoses Lumbosacral radiculopathy Procedures EMG / Nerve Conduction Study Claire Davidson MD [address] [address] Phone: tel: fax: Referral ID Status Reason Start Date Expiration Date Visits Requested Visits Authorized [id number] Pending Review Specialty Services Required 03/08/2025 09/07/2026 1 1 Reason for Visit * Reason Comments Consult * Consultation (Routine) - Closed Specialty Diagnoses / Procedures Referred By Truong bella Referred To Contact Neurology Diagnoses Neuropathic pain, leg, bilateral Laquita Corral PA [address] [place] [address] Phone: tel: fax: Referral ID Status Reason Start Date Expiration Date V isits Requested Visits Authorized [id number] Closed Specialty Services Required 03/04/2025 09/03/2026 1 1 Encounter Details Date Type Department Care Team ([facility] st Contact Info) Description 03/08/2025 8:00 AM EDT Consult [facility] [address] [facility], [address] [place] [address] Claire Davidson MD [address] [place] [address] Lumbosacral radiculopathy (Primary Dx) Social [...] Score 0 03/08/2025 8:18 AM EDT Sommer Rangel documented as of this encounter Miscellaneous Notes * Progress Notes - Claire Davidson MD - 03/08/2025 8:00 AM EDT I saw Trudy Peña as a new patient at the [facility] on 03/08/2025 in consultation for concern for neuropathy. 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 Endorses radicular low back pain. [...] Surgical History: Surgical History[2] Social History: Address: [address] [place] [address] Medications: Current Medications[3] Allergies: Allergies[4] Exam: There [...] Study RTC 2 months. Claire Davidson MD Director Of Program Management, Department of Neurology Neuromuscular Medicine Program Counseling [...] N/A Breast Surgery Reduction Procedure Bilateral from [employer] EXPLORATORY LAPAROTOMY GALLBLADDER SURGERY 2018 GANGLION CYST EXCISION, WRIST Left INCISION AND DRAINAGE, ABCESS 2010 from back LIVER BIOPSY OTHER SURGICAL HISTORY N/A Exploratory Laparotomy from [employer] OVARIAN CYST DRAINAGE N/A Aspiration Of Ovarian Cyst from [employer] TOTAL ABDOMINAL HYSTERECTOMY N/A 2011 Hysterectomy from [employer] [3] Current Outpatient Medications Medication Sig Dispense [...] TIMES DAILY ergocalciferol (Vitamin D-2) 1.25 MG (85972 UT) capsule Take 1 capsule (50,000 Units) [...] Info) Description 05/14/2025 2:00 PM EST Appointment [facility] MRI [address] [place] [id number] 05/18/2025 9:15 AM EST Clinical Support [facility] [address] [address] 05/18/2025 9:30 AM EST Clinical Support [facility] Trans[facility] [place] [address] [address] CH - CLINICAL NUTRITION [address] [place], [place] [id number] 05/18/2025 10:50 AM EST Office Visit [facility] [place] [address] [address] Nj Johns MD [address] [facility] [address] [place] [address] 05/18/2025 11:30 AM EST Social Work [facility] [address] [address] Thuy Dasilva, SERVICE ORDER [place], [place] [id number] 05/18/2025 1:00 PM EST Appointment [facility] Radiology [address] [place] [address] 05/18/2025 1:30 PM EST Appointment [facility]iology [address] [place], 1[address] [place] [address] 05/18/2025 1:30 PM EST Appointment [facility]iology [address], 1st [place] [address] 05/18/2025 2:00 PM EST Pharmacist Visit [facility] [address] [place] [address] 05/22/2025 11:15 AM EST Consult [facility] [address], 1[address] [place] [address] Nigel Recinos MD [address] [place] [address] 05/25/2025 11:30 AM EST Appointment [facility] [address] [place] [address] 05/25/2025 2:00 PM EST Appointment [facility] Pulmonary Function Testing [address] [place] [address] 05/25/2025 3:30 PM EST Appointment Cardiac Imaging [address] [place] [address] 05/31/2025 4:30 PM EST Appointment [facility] [address] [place] [address] 06/20/2025 10:30 AM EST Procedure Visit [facility] [address], 1[address] [place] [address] Claire Davidson MD [address] [place] [address] 06/21/2025 2:00 PM EST Office Visit [facility] [address] [facility], [address] [place] [address] Claire Davidson MD [address] [place] [address] Scheduled Orders Name Type Priority [...] as of this encounter Care Teams [employer] Delivery Driver Relationship Specialty Start Date End Date Trveor Rolon DO [address] [facility] [address] [place] [address] PCP - General 11/22/20 Mc Grant DO [address] [facility] [address] [place] [address] Referring Physician Gastroenterology 02/21/24 documented as of this encounter
--- OUTSIDE RECORDS SUMMARY | 2025-03-19 13:15 | XMS_ITS | Encounter Summary ---
Author Organization [facility] Address [address] [place] [address] Care Team Providers Care Candy Dipper Name Role Phone Trevor Rolon DO Primary Care Provider Lucy Christopher DO Unavailable Reason for Referral * US (Routine) - Authorized Specialty Diagnoses / Procedures Referred By Truong bella Referred To Contact Radiology Diagnoses Cirrhosis of liver without ascites, unspecified hepatic cirrhosis type Procedures US liver doppler [place] DUP-SCAN ARTL [place] ABDL/PEL/SCROT&/RPR ORGN LMT El Agarwal NP [address], [place] [address] Phone: tel: fax: [facility] [address] [place] [address] Phone: tel: fax: Referral ID Status Reason Start Date Expiration Date Visits Requested Visits Authorized [id number] Authorized Specialty Services Required 03/26/2025 03/26/2026 1 1 Reason for Visit * Reason Comments Follow-up Encounter Details Date Type Department Care Team (Latest Contact Info) Description 03/19/2025 1:15 PM EDT Office Visit [facility]STRO[facility]OLOGY [facility]ACTICE [address], 2nd [place] [phone] El Agarwal, CLAU [address], [place] [address] Cirrhosis of liver without ascites, unspecified hepatic [...] often do you attend chur ch or sikhism services? More than 4 times per year [...] Recorded Patient Health Questionnaire-2 Score 0 09/28/2023 [facility] - Occupational [...] or hematemesis. She reports recently following with [facility] and reports that her MELD [...] Description 04/30/2025 9:00 AM EDT Appointment [facility] [address] [place] [address] 05/07/2025 3:00 PM EDT Appointment [facility] MAMMOGRAPHY SERVICES [facility] D [address], [place] [address] 06/18/2025 10:30 AM EST Office Visit [facility] [address], [address]nd [place] [address] 06/27/2025 10:00 AM EST Office Visit [facility] SLEEP LAB PRACTICE [address] [place] [address] NovemberMarcelina NP [address] [facility] [place] [address] 08/16/2025 10:00 AM EST Office Visit [facility] [address] [place] [address] Brigitte Mahoney NP [address] [facility] [place] [address] 09/18/2025 1:30 PM EDT Office Visit [facility] RHEUMATOLOGY [facility]ACTICE [address] 8[address] Floor Clinic [place] [address] Suman Treviño MD [address] [facility] [place] [address] 12/13/2025 11:00 AM EDT Office Visit [facility] OBGYN PRACT[facility] [address], 7[address] [place] [address] Janice Woodward NP [address] [place] [address] Scheduled Orders Name Type Priority Associated Diagnoses Orde r Schedule US liver doppler Imaging Routine Cirrhosis of liver without ascites, unspecified hepatic cirrhosis type Expected: 03/26/2025, Expires: 03/19/2026 documented as of this encounter Results * (ABNORMAL) Ammonia (03/19/2025 2:49 PM EDT) [facility] Ammonia 65(H) 11 - 32 umol/L 03/19/2025 3:37 PM EDT [facility] Blood Venous blood specimen / Unknown Venipuncture / Unknown 03/19/2025 2:49 PM EDT 03/19/2025 3:06 PM EDT us El Agarwal NP LAB BLOOD ORDERABLES Final Re sult [facility] [address] [place] [address], * AFP tumor marker (03/19/2025 2:49 PM EDT) [facility] AFP Tumor Marker 4.7 0.0 - 9.2 [...] - 03/20/2025 4:06 AM EDT Performed at: [address] [place] [id number] Drum Barker Operator: Raphael Edwards PhD, Phone: [phone] El Agarwal SUPPLY CHAIN DESIGN MANAGER LAB BLOOD ORDERABLES Final Re sult Performing Organization Address [facility] Co de Phone Number [facility] N[facility]OL[facility]) [address] [place] [address], [place] [phone] * (ABNORMAL) Protime-INR (03/19/2025 2:49 PM EDT) [facility] Protime 14.3(H) 10.2 - 12.9 seconds 03/19/2025 3:27 PM EDT [facility] INR 1.27(H) 0.90 - 1.10 03/19/2025 3:27 PM EDT [facility] Comment: The INR should only be used in stable anticoagulated patients. Recommended therapeutic ranges: Condition INR Prevention or treatment of DVT 2.0-3.0 Acute PR Prevention of Stroke 2.0-3.0 Prevention of recurrent PR 2.5-3.5 Atrial fibrillation Prevention of systemic embolism 2.0-3.0 Cardiac valve replacement (mechanical valves) 2.5-3.5 Blood Venous blood specimen / Unknown Venipuncture / Unknown 03/19/2025 2:49 PM EDT 03/19/2025 3:07 PM EDT El Agarwal SUPPLY CHAIN DESIGN MANAGER LAB BLOOD ORDERABLES Final Re sult Performing Organization Address City/[facility]/ZIP Co de Phone Number [facility] [address] [place] [address], [place] [phone] * (ABNORMAL) Hepatic function panel (03/19/2025 2:49 PM EDT) Total Bilirubin 2.0(H) 0.3 - 1.0 mg/dL 03/19/2025 3:35 PM EDT [facility] Bilirubin, Direct 0.6(H) 0.0 - 0.2 mg/dL 03/19/2025 3:35 PM EDT [facility] Alkaline Phosphatase 205(H) 29 - 108 U/L 03/19/2025 3:35 PM EDT [facility] AST 61(H) 10 - 28 U/L 03/19/2025 3:35 PM [facility] ALT (SGPT) 40 <=40 U/L 03/19/2025 3:35 PM EDT [facility] Albumin 2.9(L) 3.5 - 5.1 g/dL 03/19/2025 3:35 PM [facility] Total Protein 6.0 5.9 - 7.9 g/dL 03/19/2025 3:35 PM [facility] Blood Venous blood specimen / Unknown Venipuncture / Unknown 03/19/2025 2:49 PM EDT 03/19/2025 3:06 PM EDT [facility] - 03/19/2025 3:35 PM EDT Results for ALT may be adversely affected when samples are collected on patients taking Sulfasalazine and/or Sulfapyridine. El Agarwal NP LAB BLOOD ORDERABLES Final Re sult [facility] [address] [address], * (ABNORMAL) Basic metabolic panel (03/19/2025 2:49 PM EDT) Glucose 116(H) 58 - 104 mg/dL 03/19/2025 3:35 PM EDT [facility] Sodium 133(L) 134 - 143 mmol/L 03/19/2025 3:35 PM EDT [facility] Potassium 4.2 3.2 - 4.6 mmol/L 03/19/2025 3:35 PM EDT [facility] Chloride 101 99 - 108 mmol/L 03/19/2025 3:35 PM EDT [facility] CO2 30(H) 19 - 29 mmol/L 03/19/2025 3:35 PM [facility] Anion Gap 2(L) 5 - 15 mmol/L 03/19/2025 3:35 PM [facility] BUN 19 7 - 20 mg/dL 03/19/2025 3:35 PM [facility] Creatinine 0.91 <=1.20 mg/dL 03/19/2025 3:35 PM [facility] BUN/Creatinine Ratio 20.88(H) 10.00 - 20.00 ratio 03/19/2025 3:35 PM [facility] Calcium 8.6 7.9 - 11.1 mg/dL 03/19/2025 3:35 PM [facility] eGFR (CKD-EPI) 71.3 >60.0 - 200.0 mL/min/1.7 3m*2 03/19/2025 3:35 PM [facility] Blood Venous blood specimen / Unknown Venipuncture / Unknown 03/19/2025 2:49 PM EDT 03/19/2025 3:06 PM EDT us El Agarwal SUPPLY CHAIN DESIGN MANAGER LAB BLOOD ORDERABLES Final Re sult [facility] [address] [place] [address], * (ABNORMAL) CBC (03/19/2025 2:49 PM EDT) Auto WBC 6.2 3.8 - 11.0 10*3/uL 03/19/2025 3:12 PM EDT [facility] RBC 3.73 3.73 - 5.13 10*6/uL 03/19/2025 3:12 PM EDT [facility] Hemoglobin 12.7 11.2 - 15.3 g/dL 03/19/2025 3:12 PM EDT [facility] Hematocrit 36.8 32.6 - 44.6 % 03/19/2025 3:12 PM EDT [facility] MCV 98.7(H) 78.8 - 96.0 fL 03/19/2025 3:12 PM EDT [facility] MCH 34.0(H) 26.2 - 33.0 pg 03/19/2025 3:12 PM EDT [facility] MCHC 34.4 32.7 - 35.1 g/dL 03/19/2025 3:12 PM EDT [facility] RDW 14.5 12.1 - 16.1 % 03/19/2025 3:12 PM EDT [facility] Platelets 77(L) 138 - 402 10*3/uL 03/19/2025 3:12 PM EDT [facility] MPV 8.1 7.0 - 10.6 fL 03/19/2025 3:12 PM EDT [facility] Blood Venous blood specimen / Unknown Venipuncture / Unknown 03/19/2025 2:49 PM EDT 03/19/2025 3:07 PM EDT us El Agarwal SUPPLY CHAIN DESIGN MANAGER LAB BLOOD ORDERABLES Final Re sult [facility] [address] [place] [address], documented in this encounter Visit Diagnoses Diagnosis Cirrhosis of liver without ascites, unspecified hepatic cirrhosis type- Primary Hepatic encephalopathy Gastroesophageal reflux disease, unspecified whether esophagitis present Encephalopathy, hepatic Hepatic encephalopathy GAVE (gastric antral vascular ectasia) documented in this encounter Additional Health Concerns Assessment Noted Time PHQ-9 Depression Total Score: 0 07/24/19 23 3:00 PM EST documented as of this encounter Care Teams Candy Dipper Relationship Specialty [place] Date End Date Trevor Rolon DO [address] [facility] [address] PCP - General Lucy Christopher DO [address] [place] [address] Consulting Physician Oncology 10/17/24 documented as of this encounter
--- OUTSIDE RECORDS SUMMARY | 2025-03-27 10:30 | XMS_ITS | Encounter Summary ---
Author Organization [facility] nter Address [address] [place] [address] Care Team Providers Care Finish Machine Tender Name Role Phone Trevor Rolon DO Primary Care Provider Lucy Christopher DO Unavailable Reason for Visit * Reason Comments Vaginal Rash Pt states this past weekend she developed a rash in vaginal area - blisters, painful. Encounter Details Date Type Department Care Team (Late st Contact Info) Description 03/27/2025 10:30 AM EDT Office Visit [facility] [address], 7th Floor Clinic [place] [phone] Janice Woodward, CLAU [address] [place] [address] Acute vaginitis (Primary Dx) Social History Tobacco [...] Patient Health Questionnaire-2 Score 0 09/28/2023 [facility] of Occupat ional Health - Occupational Stress [...] place to sleep or slept in a intermediate (including now)? No 07/24/2022 Comments No Sex [...] 10:25 AM EDT documented in this encounter Plan of Treatment Upcoming Encounters Date Type Department Care Team (Late st Contact Info) Description 04/30/2025 9:00 AM EDT Appointment [facility] ULTRASOUND [address], 2nd [place] [address] 05/07/2025 3:00 PM EDT Appointment [facility] MAMMOGRAPHY SERVICES [address], [place] [address] 06/18/2025 10:30 AM EST Office Visit [facility] GASTROENTEROLOGY PRACTICE [address], 2nd [facility] [place] [address] 06/27/2025 10:00 AM EST Office Visit [facility] SLEEP LAB PRACTICE [address], [place] [facility] [place] [address] NovemberMarcelina NP [address] [facility] [place] [address] 08/16/2025 10:00 AM EST Office Visit [facility] ENDOCRINOLOGY PRACTICE [address], 8th [place] [address] Brigitte Mahoney NP [address] [place] [address] 09/18/2025 1:30 PM EDT Office Visit [facility] RHEUMATOLOGY PRACTICE [address], 8th [place] [address] Suman Treviño MD [address] [place] [address] 12/13/2025 11:00 AM EDT Office Visit [facility] OBGYN PRACTICE [address], 7th [place] [address] Janice Woodward NP [address] [place] [phone] documented as of this encounter Procedures Procedure [...] EDT 03/27/2025 8:03 PM EDT Narrative [facility] ([place]) - 03/31/2025 2:07 PM EDT Performed at: - [address] [id number] Oil Scout: Raphael Edwards PhD, Phone: [phone] Janice Woodward NP LAB MICROBIOLOGY - [facility] ORDERABLES Final Result [facility] [place]) [address] [place] [address], * (ABNORMAL) Herpes Simplex Virus (HSV) Types 1 & 2 Specific Antibodies (03/27/2025 11:52 AM EDT) HSV 1 IgG, Type Spec Reactive( A) Non Reactive 03/28/2025 8:07 AM EDT [facility] ([place]) Comment: Please note reference interval change HSV-1 IgG testing performed using the [employer] HSV-1 IgG assay. HSV 2 IgG Type Spec Reactive( A) Non Reactive 03/28/2025 8:07 AM EDT [facility] ([employer]) Comment: Please note reference interval change Current [...] 03/28/2025 8:07 AM EDT Performed at: - [address] [id number] Oil Scout: Raphael Edwards PhD, Phone: [phone] Janice Woodward NP LAB BLOOD ORDERABLES Fin al Result [facility] [place]) [address] [place] [address], [place] [phone] * Hepatitis panel, acute (03/27/2025 11:52 AM EDT) Hepatitis B Surface Ag Nonreactive Nonreactive 03/27/2025 1:26 PM EDT [facility] Hep A IgM Nonreactive Nonreactive 03/27/2025 1:26 PM EDT [facility] Hep B Core IgM Nonreactive Nonreactive 03/27/2025 1:26 PM EDT [facility] Hepatitis C Ab Nonreactive Nonreactive 03/27/2025 1:26 PM EDT [facility] Blood Venous blood specimen / Unknown Venipuncture / Unknown 03/27/2025 11:52 AM EDT 03/27/2025 12:17 PM EDT Janice Woodward NP LAB BLOOD ORDERABLES Fin al Result [facility] [address] [place] [address], [place] [phone] * RPR W/Reflex (Reference Lab) (03/27/2025 11:52 AM EDT) RPR Non Reactive Non Reactive 03/28/2025 8:07 AM EDT [facility] ([place]) Blood Venous blood specimen / Unknown Venipuncture / Unknown 03/27/2025 11:52 AM EDT 03/27/2025 12:17 PM EDT Narrative [facility] [place]) - 03/28/2025 8:07 AM EDT Performed at: 01 - [facility] [address] [id number] Oil Scout: Raphael Edwards PhD, Phone: [phone] Janice Woodward NP LAB BLOOD ORDERABLES Fin al Result [facility] [place]) [address] [place] [address], [place] [phone] * HIV Ag/Ab with Reflex (03/27/2025 11:52 AM EDT) HIV Ag/Ab (4th Gen) Nonreactive Nonreactive 03/27/2025 1:02 PM EDT [facility] Blood Venous blood specimen / Unknown Venipuncture / Unknown 03/27/2025 11:52 AM EDT 03/27/2025 12:17 PM EDT Narrative [facility] - 03/27/2025 1:02 PM EDT Screening test only. Janice Woodward NP LAB BLOOD ORDERABLES Fin al Result Performing Organization Address City/[facility]/ZIP Co de Phone Number [facility] [address] [place] [address], [place] [phone] documented in this encounter Visit Diagnoses Diagnosis Acute vaginitis- Primary Unspecified vaginitis and vulvovaginitis documented in this encounter Additional Health Concerns Assessment Noted Time PHQ-9 Depression Total Score: 0 07/24/19 23 3:00 PM EST documented as of this encounter Care Teams Finish Machine Tender Relationship Specialty Start Date End Date Trevor Rolon DO [address] [place] [id number] PCP - General Lucy Christopher DO [address] [facility] [place] [address] Consulting Physician Oncology 10/17/24 documented as of this encounter
--- OUTSIDE RECORDS SUMMARY | 2025-03-27 11:00 | XMS_ITS | Encounter Summary ---
Author Organization [facility] nter Address [address] [place] [address] Care Team Providers Care Crime Scene Photographer Name Role Phone Trevor Rolon DO Primary Care Provider Lucy Christopher DO Unavailable Reason for Visit * Reason Comments Ankle Pain Encounter Details Date Type Department Care Team (Latest Contact Info) Description 03/27/2025 11:00 AM EDT Office Visit [facility] ORTHOPEDIC PODIATRY PRACTICE [address] 6th [place] [address] Alexandr Zarate DPM [address] [facility] [place] [address] Diabetic polyneuropathy associated with type [...] week 07/24/2022 How often do you attend [facility] or episcopal services? More than 4 times per year [...] Recorded Patient Health Questionnaire-2 Score 0 09/28/2023 [place] [facility] of Occupat ional Health - Occupational Stress [...] min Stress: No Stress Concern Present (07/24/2022) [place] [facility] Occupational Health - Occupational Stress Questionnaire Feeling of Stress : Not at all Social Connections: Unknown (04/19/2023) Received from [facility] Family and Community Support Help with Day-to-Day Activities: Not on file Lonely or Isolated: Not on file Intimate Partner Violence: Unknown (04/19/2023) Received from [facility] Abuse Screen Unsafe at Home or Work/School: Not on file Feels Threatened by Someone?: Not on file Does Anyone Keep You from Contacting Others or Doint Things Outside the Home?: Not on file Physical Sign of Abuse Present: Not on file Housing Stability: Unknown (04/19/2023) Received from [facility] Housing Stability Current Living Arrangements: Not [...] videos and all your education online visit, [email or web address] or scan this QR code with your smartphone. Access to this content will in one year. Diabetes Mellitus and Foot Care Diabetes, also called diabetes mellitus, may cause problems with your feet and legs because of poorblood flow (circulation). Poor circulation may make your skin: Become thinner and flake drier. Break more easily. Heal more slowly. Peel [...] right away. Where to find more information [place] Diabetes Association: diabetes.org Association of Diabetes Care [...] 2001-06-25 Document Updated: 2022-12-30 Document Reviewed: 2022-12-30 ElseBinary Computer Solutions Patient Education ? 2024 [employer] documented in this encounter Plan of Treatment Upcoming Encounters Date Type Department Care Team (Late st Contact Info) Description 04/30/2025 9:00 AM EDT Appointment [facility] ULTRASOUND [address] [facility], 2nd [place] [address] 05/07/2025 3:00 PM EDT Appointment [facility] MAMMOGRAPHY SERVICES [facility] [address], [facility] [place] [address] 06/18/2025 10:30 AM EST Office Visit [facility] GASTROENTEROLOGY PRACTICE [address] [facility], 2nd [place] [address] 06/27/2025 10:00 AM EST Office Visit [facility] SLEEP LAB PRACTICE [address] [place] [address] Marcelina Hyde NP 1 [place] [address] 08/16/2025 10:00 AM EST Office Visit [facility]OCRINOLOG[facility] [address] 8th [place] [address] Brigitte Mahoney NP 1 [place] [address] 09/18/2025 1:30 PM EDT Office Visit [facility] RHEUMATOLOGY PRACTICE [address], 8th Floor Clinic [place] [address] Suman Treviño MD [address] [facility]. [place] [address] 12/13/2025 11:00 AM EDT Office Visit [facility] OBGYN PRACTICE [address], 7th Floor Clinic [place] [address] Janice Woodward, CLAU [address] [place] [address] documented as of this encounter Visit Diagnoses Diagnosis Diabetic polyneuropathy associated with type 2 diabetes mellitus Achilles tendinitis of left lower extremity Bilateral calcaneal spurs Pain in both feet documented in this encounter Additional Health Concerns Assessment Noted Time PHQ-9 Depression Total Score: 0 07/24/19 23 3:00 PM EST documented as of this encounter Care Teams Crime Scene Photographer Relationship Specialty Start Date End Date Trevor Rolon DO [address] [facility] [address] [place] [address] PCP - General Lucy Christopher DO [address] [facility] [place] [address] Consulting Physician Oncology 10/17/24 documented as of this encounter
--- OUTSIDE RECORDS SUMMARY | 2025-03-28 08:00 | XMS_ITS | Encounter Summary ---
Author Organization [facility] nter Address [address] [place] [address] Care Team Providers Care Supervisor Sample Name Role Phone Trevor Rolon DO Primary [...] Description 03/28/2025 8:00 AM EDT Office Visit [facility] SLEEP LAB PRACTICE [address] [facility] [place] [address] NovemberMarcelina NP 911 [place] [address] LEROY (obstructive sleep apnea) (Primary [...] week 07/24/2022 [facility] or [facility] services? More than 4 times [...] Recorded Patient Health Questionnaire-2 Score 0 09/28/2023 [facility] of Occupat ional Health [...] Miscellaneous Notes * Patient Education - Fara Lea LPN - 03/28/2025 8:35 AM EDT Images from the original note were not included. Patient Education Table of Contents Quality Sleep Information, Adult To view videos and all your education online visit, [email or web address] or scan this QR code with your [...] have sleep problems, talk with a sleep executive talent acquisition consultant. If you think you have a sleep disorder, talk with your health care provider about getting evaluated by a specialist. Where to find more information Sleep Foundation: sleepfoundation.org [place] Academy of Sleep Medicine: aasm.org Centers for [...] 2018-10-05 Document Updated: 2022-10-21 Document Reviewed: 2022-10-21 vogogo Patient Education ? 2024 [employer] Inc. documented in this encounter Plan of Treatment Upcoming Encounters Date Type Department Care Team (Late st Contact Info) Description 04/30/2025 9:00 AM EDT Appointment [facility] ULTRASOUND [address], 2nd Floor [place] [address] 05/07/2025 3:00 PM EDT Appointment [facility] MAMMOGRAPHY SERVICES F[address] D [address], [place] [facility] [place] [address] 06/18/2025 10:30 AM EST Office Visit [facility] GASTROENTEROLOGY PRACTICE [address], 2nd Floor [place] [address] 06/27/2025 10:00 AM EST Office Visit [facility] SLEEP LAB PRACTICE [address] [facility] [place] [facility] [place] [address] Marcelina Hyde NP [address] [place] [address] 08/16/2025 10:00 AM EST Office Visit [facility] ENDOCRINOLOGY PRACTICE [address], 8th [place] [address] Brigitte Mahoney, CLAU [address] [facility] [place] [address] 09/18/2025 1:30 PM EDT Office Visit [facility] RHEUMATOLOGY PRACTICE [address], 8th [place] [address] Suman Treviño MD [address] [facility] [place] [address] 12/13/2025 11:00 AM EDT Office Visit [facility] OBGYN PRACTICE [address], 7th [place] [address] Janice Woodward, CLAU [address] [place] [phone] documented as of this encounter Visit Diagnoses [...] as of this encounter Care Teams Supervisor Sample Relationship Specialty Start Date End Date Trevor Rolon DO [address] [facility] [address] [place] [address] PCP - General Lucy Christopher DO [address] [facility] [place] [address] Consulting Physician Oncology 10/17/24 documented as of this encounter
--- OUTSIDE RECORDS SUMMARY | 2025-04-03 08:00 | XMS_ITS | Encounter Summary ---
Author Organization [facility] Address [address] [place] [address] Care Team Providers Care Charter Bus Driver Name Role Phone Trevor Rolon DO Primary Care Provider [phone] Mc Grant DO Unavailable [phone] El Agarwal ENGINEER REMOTE CONTROL DIESEL Unavailable [phone] Reason for Referral * Consultation (Routine) - Authorized Specialty Diagnoses / Procedures Referred By Truong bella Referred To Contact Family Medicine Diagnoses End-stage liver disease (CMS/HCC) Nj Johns MD [address] [place] [address] Phone: tel: fax: Referral ID Status Reason Start Date Expiration Date Visits Requested Visits Authorized [id number] Authorized Specialty Services Required 04/03/2025 10/03/2026 1 1 Reason for Visit * Reason Comments Pre-Liver Txp Follow-up * Consultation (Routine) - Closed Specialty Diagnoses / Procedures Referred By Truong bella Referred To Contact Transplant Diagnoses End-stage liver disease (CMS/HCC) Asael Esteves MD [address] [place] [address] Phone: tel: fax: [facility] [address] [place] [address] Phone: tel: fax: Referral ID Status Reason Start Date Expiration Date V isits Requested Visits Authorized [id number] Closed Specialty Services Required 03/21/2025 09/20/2026 1 1 Encounter Details Date Type Department Care Team (Latest Contact Info) Description 04/03/2025 8:00 AM EDT Office Visit [facility] [address] [place] [address] Nj Johns MD [address] [place] [address] End-stage liver disease (CMS/HCC) (Primary [...] patient is a 54-year-old female with decompensated [facility] cirrhosis, presenting for a liver transplant [...] deferred. She has continued follow-up care at [facility] Gastroenterology, with her most recent appointment on [...] , Rfl: ergocalciferol (Vitamin D-2) 1.25 MG (09667 UT) capsule, Take 1 capsule by mouth [...] Info) Description 05/14/2025 2:00 PM EST Appointment [facility] [address] [place] [address] 05/18/2025 9:15 AM EST Clinical Support [facility] Transplant [address] [address] 05/18/2025 9:30 AM EST Clinical Support [facility] Transplant [address] [address] CH - CLINICAL NUTRITION [address] [place] [address] 05/18/2025 10:50 AM EST Office Visit [facility] Transplant [address] [phone] Nj Johns MD [address] [place] [address] 05/18/2025 11:30 AM EST Social Work [facility] [address] [place] [address] Thuy Dasilva, [place], [place] [phone] 05/18/2025 1:00 PM EST Appointment [facility] Radiology [address] [place] [address] 05/18/2025 1:30 PM EST Appointment [facility] Radiology [address] [place] [address] 05/18/2025 1:30 PM EST Appointment [facility] Radiology [address] [place] [address] 05/18/2025 2:00 PM EST Pharmacist Visit [facility] [address] [place] [address] 05/22/2025 11:15 AM EST Consult [facility] [address], [address] [place] [address] Nigel Recinos MD [address] [place] [address] 05/25/2025 11:30 AM EST Appointment [facility] [address] [place] [address] 05/25/2025 2:00 PM EST Appointment [facility] Pulmonary Function Testing [address] [place] [address] 05/25/2025 3:30 PM EST Appointment Cardiac Imaging [address] [place] [address] 05/31/2025 4:30 PM EST Appointment [facility] [address] [place] [address] 06/20/2025 10:30 AM EST Procedure [facility] [address] [place] [address] Claire Davidson MD [address] [place] [address] 06/21/2025 2:00 PM EST Office Visit [facility] [address], [address] [place] [address] Claire Davidson MD [address] [facility] [place] [address] Scheduled Referrals Name Type Priority Associated Diagnoses Order Schedule Ambulatory referral to Family Practice Outpatient Referral Routine End-stage liver disease (CMS/HCC) 1 Occurrences starting 04/03/2025 until 10/05/2026 documented as of this encounter Results * [id number] Enzyme Conc and Phenotype (SO) (04/03/2025 10:11 AM EDT) ALPHA 1 ANTITRYPSIN 131 90 - 200 mg/dL 04/05/2025 10:42 PM EDT [facility] A1A Phenotype M1Z 04/05/2025 10:42 PM EDT [facility] Blood Venous blood specimen / Unknown Venipuncture / Unknown 04/03/2025 10:11 AM EDT 04/03/2025 10:41 AM EDT Narrative [facility] - 04/05/2025 10:42 PM EDT To convert [...] within the previous 21 days. Performed By: [facility] [address] [place] [address] Security Representative: Kiel Mayfield MD, PhD CLIA Number: [id number] Nj Johns MD LAB BLOOD ORDERABLES Final Res ult Performing Organization Address [facility]/ZIP Co de Phone Number [facility] ([facility]) [address] [place] [address] * (ABNORMAL) Anti-smooth muscle antibody, IgG (04/03/2025 10:11 AM EDT) Smooth Muscle Ab, IgG Titer 1:20(H) <1:20 04/05/2025 8:18 PM EDT [facility]) Blood Venous blood specimen / Unknown Venipuncture / Unknown 04/03/2025 10:11 AM EDT 04/03/2025 10:41 AM EDT Narrative [facility]) - 04/05/2025 8:18 PM EDT INTERPRETIVE INFORMATION: Smooth Muscle Ab, IgG Titer Less than 1:20 ........ Negative - No antibody detected. 1:20 - 1:80 .......... Weak Positive - Suggest repeat in two to three weeks with fresh specimen. 1:160 or greater ...... Positive - Suggestive of autoimmune hepatitis or chronic active hepatitis. Performed By: [facility] [address] [place] [address] Security Representative: Kiel Mayfield MD, PhD CLIA Number: [id number] Nj Johns MD LAB BLOOD ORDERABLES Final Res ult Performing Organization Address [facility] Co de Phone Number [facility]) [address] [place] [address] * (ABNORMAL) IG Profile (04/03/2025 10:11 AM EDT) IGA 838(H) 75 - 400 mg/dL 04/03/2025 11:38 AM EDT [facility] IGG 1,747(H) 720 - 1,589 mg/dL 04/03/2025 11:38 AM EDT [facility] IGM 197 35 - 225 mg/dL 04/03/2025 11:38 AM EDT [facility] Blood Venous blood specimen / Unknown Venipuncture / Unknown 04/03/2025 10:11 AM EDT 04/03/2025 10:41 AM EDT Nj Johns MD LAB BLOOD ORDERABLES Final Res ult [facility] [address] [place] [address] * (ABNORMAL) Mitochondrial M2 Antibody, IgG (CRISTAL) (04/03/2025 10:11 AM EDT) MITOCHONDRIA M2 AB IGG 29.3(H) 0.0 - 24.9 Units 04/05/2025 11:23 AM EDT [facility]) Serum Venous blood specimen / Unknown 04/03/2025 10:11 AM EDT 04/03/2025 10:41 AM EDT Narrative [facility]) - 04/05/2025 11:23 AM EDT REFERENCE INTERVAL: [...] does not rule out PBC. Performed By: [facility] [address] [place] [id number] Security Representative: Kiel Mayfield MD, PhD CLIA Number: [id number] us Nj Johns MD LAB BLOOD ORDERABLES Final Res ult [facility]) [address] [place] [address] documented in this encounter Visit Diagnoses Diagnosis [...] plan has been documented for the patient 04/03/2025 9:41 AM EDT documented as of this encounter Care Teams Charter Bus Driver Relationship Specialty Start Date End Date Trevor Rolon DO [address] [facility] [address] [place] [address] PCP - General 11/22/20 Mc Grant DO [address] [facility] [address] [place] [address] Referring Physician Gastroenterology 02/21/24 El Agarwal APRN [address] [place] [address] Referring Physician Gastroenterology 03/21/25 documented as of this encounter
--- OUTSIDE RECORDS SUMMARY | 2025-04-11 14:02 | XMS_ITS | Encounter Summary ---
Author Organization [facility] n[facility] Address [address] [place] [address] Care Team Providers Care Material Distributor Name Role Phone Trevor Rolon DO Primary Care Provider Lucy Christopher DO Unavailable Encounter Details Date Type Department Care Team (Late st Contact Info) Description 04/06/2025 Abstract [facility] [address], 2nd Floor Clinic [place] [phone] El Agarwal, ICU NURSE [address], [place] [address] Social History Tobacco Use Types Packs/Day Years [...] Recorded Patient Health Questionnaire-2 Score 0 09/28/2023 [facility] of Occupat ional Health - Occupational Stress [...] ULTRASOUND [address], 2nd Floor [place] [address] 05/07/2025 3:00 PM EDT Appointment [facility] MAMMOGRAPHY SERVICES FARRUKH D [address] [place] [address] 06/18/2025 10:30 AM EST Office Visit [facility] [address], 2nd [place] [address] 06/27/2025 10:00 AM EST Office Visit [facility] SLEEP LAB PRACTICE [address] [facility] [place] [address] Marcelina Hyde NP [address] Bld[address] [place] [address] 08/16/2025 10:00 AM EST Office Visit [facility] ENDOCRINOLOGY PRACTICE [address], 8th Floor Clinic [place] [address] Brigitte Mahoney NP [address] Bld[address] [place] [address] 09/18/2025 1:30 PM EDT Office Visit [facility] RHEUMATOLOGY PRACTICE [address], 8th Floor Clinic [place] [address] Suman Treviño MD [address] [place] [address] 12/13/2025 11:00 AM EDT Office Visit [facility] OBGYN PRACTICE [address], 7th Floor Clinic [place] [address] Janice Woodward, CLAU [address] [place] [address] documented as of this encounter Visit Diagnoses Not on filedocumented in this encounter Additional Health Concerns Assessment Noted Time PHQ-9 Depression Total Score: 0 07/24/19 23 3:00 PM EST documented as of this encounter Care Teams Material Distributor Relationship Specialty Start Date End Date Trevor Rolon DO [address] [facility] [address] [place] [address] PCP - General Lucy Christopher DO [address] [place] [phone] Consulting Physician Oncology 10/17/24 documented as of this encounter
--- OUTSIDE RECORDS SUMMARY | 2025-04-11 14:02 | XMS_ITS | Encounter Summary ---
Author Organization [facility] nter Address [address] [place] [address] Care Team Providers Care Inside Upholsterer Name Role Phone Trevor Rolon DO Primary Care Provider Lucy Christopher DO Unavailable Encounter Details Date Type Department Care Team (Late st Contact Info) Description 03/28/2025 Results Follow-Up [facility] [address], 4th [place] [address] Janice Woodward, CLAIM ANALYST [address] [place] [address] Vaginitis Panel, C. trachomatis / N. gonorrhoeae, DNA probe, HIV Ag/Ab with Reflex, Additional followed-up results: 2 Social History Tobacco Use Types Packs/Day Years [...] How often do you attend [facility] or mu-ism services? More than 4 times [...] Recorded Patient Health Questionnaire-2 Score 0 09/28/2023 [facility] [place] of Occupat ional Health - Occupational Stress [...] ULTRASOUND [address], 2nd [place] [address] 05/07/2025 3:00 PM EDT Appointment [facility] BLDG D [address], [place] [address] 06/18/2025 10:30 AM EST Office Visit [facility] [address], 2nd [place] [address] 06/27/2025 10:00 AM EST Office Visit [facility] SLEEP LAB PRACTICE [address], [place] [address] Marcelina Hyde NP [address] [place] [address] 08/16/2025 10:00 AM EST Office Visit [facility] ENDOCRINOLOGY PRACTICE [address], 8th [place] [address] Brigitte Mahoney NP [address] Bld[address] [place] [address] 09/18/2025 1:30 PM EDT Office Visit [facility] RHEUMATOLOGY PRACTICE [address], 8th [place] [address] Suman Treviño MD [address] [place] [place] [address] 12/13/2025 11:00 AM EDT Office Visit [facility] OBGYN [facility]ACT[facility] [address], 7th Floor Clinic [place] [address] Janice Woodward NP [address] [place] [address] documented as of this encounter Visit Diagnoses Not on filedocumented in this encounter Additional Health Concerns Assessment Noted Time PHQ-9 Depression Total Score: 0 07/24/19 23 3:00 PM EST documented as of this encounter Care Teams Inside Upholsterer Relationship Specialty Start Date End Date Trevor Rolon DO [address] [facility] [address] [place] [address] PCP - General Lucy Christopher DO [address] [place] [facility] Consulting Physician Oncology 10/17/24 documented as of this encounter
--- OUTSIDE RECORDS SUMMARY | 2025-04-11 14:02 | XMS_ITS | Encounter Summary ---
Author Organization [facility] Address [address] [place] [address] Care Team Providers Care Surgical Instrument Mechanic Name Role Phone Trevor Rolon DO Primary Care Provider [phone] Mc Grant DO Unavailable [phone] El Agarwal DISTRIBUTION ACCOUNTING CLERK Unavailable [phone] Encounter Details Date Type Department Care Team (Late st Contact Info) Description 08/23/2022 Orders Only External Location [address] [place] [address] Provider, External Social History Tobacco Use Types [...] Info) Description 05/14/2025 2:00 PM EST Appointment [facility] [address] [place] [address] 05/18/2025 9:15 AM EST Clinical Support [facility] Trans[facility] [address] [place] [address] 05/18/2025 9:30 AM EST Clinical Support [facility] [address] [place] [address] CH - CLINICAL NUTRITION [address] [place] [address] 05/18/2025 10:50 AM EST Office Visit [facility] [address] [place] [address] Nj Johns MD [address] [place] [address] 05/18/2025 11:30 AM EST Social Work [facility] [address] [place] [address] Thuy Dasilva, [place] [address] 05/18/2025 1:00 PM EST Appointment [facility] Radiology [address] [place] [address] 05/18/2025 1:30 PM EST Appointment [facility] Radiology [address], 1st [place] [address] 05/18/2025 1:30 PM EST Appointment [facility] [address], 1st [place] [address] 05/18/2025 2:00 PM EST Pharmacist Visit [facility] [address] [place] [address] 05/22/2025 11:15 AM EST Consult [facility] [address], 1st [place] [address] Nigel Recinos MD [address] [place] [address] [address] 05/25/2025 11:30 AM EST Appointment [facility] [address] [place] [address] 05/25/2025 2:00 PM EST Appointment [facility] Pulmonary Function Testing [address] [place] [address] 05/25/2025 3:30 PM EST Appointment Cardiac Imaging [address] [place] [address] 05/31/2025 4:30 PM EST Appointment [facility] [address] [place] [address] 06/20/2025 10:30 AM EST Procedure Visit [place] [facility] [address], 1st [place] [address] Claire Davidson MD [address] [address] 06/21/2025 2:00 PM EST Office Visit [facility] [address] [facility], [address] [place] [address] Claire Davidson MD [address] [address] documented as of this encounter Procedures Procedure [...] on filedocumented in this encounter Care Teams Surgical Instrument Mechanic Relationship Specialty Start Date End Date Trevor Rolon DO [address] [address] PCP - General 11/22/20 Mc Grant DO [address] [place] [address] Referring Physician Gastroenterology 02/21/24 El Agarwal APRN [address] [place] [address] Referring Physician Gastroenterology 03/21/25 documented as of this encounter
--- OUTSIDE RECORDS SUMMARY | 2025-04-11 14:02 | XMS_ITS | Encounter Summary ---
Author Organization [facility] nter Address [address] [place] [address] Care Team Providers Care Yacht Rigger Name Role Phone Trevor Rolon DO Primary Care Provider Lucy Christopher DO Unavailable Reason for Visit * Reason Onset Date Comments vaginal swab 03/26/2025 Encounter Details Date Type Department Care Team (Late st Contact Info) Description 03/26/2025 Telephone [facility] [address], 7th Floor Clinic [place] [phone] Janice Woodward, CLAU [address] [place] [address] vaginal swab Social History Tobacco Use Types Packs/Day Years [...] How often do you attend chur or yazidism services? More than 4 times per year [...] Recorded Patient Health Questionnaire-2 Score 0 09/28/2023 [facility] of Occupat ional Health - Occupational [...] encounter Miscellaneous Notes * Telephone Encounter - Aixa Sanchez - 03/26/2025 11:48 AM EDT Patient called stating she is having vaginal itching, redness, and is broken out on vagina, states she had primary write out diflucan x 3 and not helped any, states her boyfriend had cheated, worriedmight be something else. Transferred to scheduling for an appt this week to get swabbed. Verbalizedunderstanding. documented in this encounter Plan of Treatment Upcoming Encounters Date Type Department Care Team (Late st Contact Info) Description 04/30/2025 9:00 AM EDT Appointment [facility] [address], 2nd Floor [place] [address] 05/07/2025 3:00 PM EDT Appointment [facility] MAMMOGRAPHY SERVICES BLDG D [address], Bldg [place] [address] 06/18/2025 10:30 AM EST Office Visit [facility] GASTROENTEROLOGY PRACTICE [address], 2nd Floor Clinic [place] [address] 06/27/2025 10:00 AM EST Office Visit [facility] SLEEP LAB PRACTICE [address], [place] [address] NovemberMarcelina NP [address] Bldg [place] [address] 08/16/2025 10:00 AM EST Office Visit [facility] ENDOCRINOLOGY PRACTICE [address], 8th Floor [facility] [place] [address] Brigitte Mahoney NP [address] [place] [place] [address] 09/18/2025 1:30 PM EDT Office Visit [facility] RHEUMATOLOGY PRACTICE [address], 8th Floor [facility] [place] [address] Suman Treviño MD [address] [place] [address] 12/13/2025 11:00 AM EDT Office Visit [facility] [address], 7th [place] [address] Janice Woodward NP [address] [place] [address] documented as of this encounter Visit Diagnoses Not on filedocumented in this encounter Additional Health Concerns Assessment Noted Time PHQ-9 Depression Total Score: 0 07/24/19 23 3:00 PM EST documented as of this encounter Care Teams Yacht Rigger Relationship Specialty Start Date End Date Trevor Rolon DO [address] [facility] [address] [place] [id number] PCP - General Lucy Christopher DO [address] [place] [address] Consulting Physician Oncology 10/17/24 documented as of this encounter
--- OUTSIDE RECORDS SUMMARY | 2025-04-11 14:02 | XMS_ITS | Encounter Summary ---
Author Organization [facility] nter Address [address] [place] [address] Care Team Providers Care Councilman Name Role Phone Trevor Rolon DO Primary Care Provider Lucy Christopher DO Unavailable Encounter Details Date Type Department Care Team (Latest Contact Info) Description 03/19/2025 Travel Social History Tobacco Use Types Packs/Day [...] often do you attend chur ch or islam services? More than 4 times per year 07/24/2022 Do you belong to any clubs o r organizations such as adventist groups, unions, fraternal or athletic groups, or [...] 09/28/2023 [facility] of Occupat ional Health - [...] [facility] [address], 2nd [place] [address] 05/07/2025 3:00 PM EDT Appointment [facility] MAMMOGRAPHY SERVICES [facility] D [address] , [facility] [address] 06/18/2025 10:30 AM EST Office Visit [facility] [address], 2nd [place] [address] 06/27/2025 10:00 AM EST Office Visit [facility] SLEEP [facility] [address] [place] [address] Marcelina Hyde NP [address] [facility] [place] [address] 08/16/2025 10:00 AM EST Office Visit [facility] ENDOCRIN[facility] [address], 8th Floor [place] [address] Brigitte Mahoney NP [address] Bldg [place] [address] 09/18/2025 1:30 PM EDT Office Visit [facility] RHEUMATOLOGY PRACTICE [address], 8th Floor [facility] [place] [address] Suman Treviño MD [address] [place] [address] 12/13/2025 11:00 AM EDT Office Visit [facility] OBGYN PRACTICE [address], [address] [place] [address] Janice Woodward NP [address] [place] [address] documented as of this encounter Visit Diagnoses Not on filedocumented in this encounter Additional Health Concerns Assessment Noted Time PHQ-9 Depression Total Score: 0 07/24/19 23 3:00 PM EST documented as of this encounter Care Teams Councilman Relationship Specialty Start Date End Date Trevor Rolon DO [address] [facility] [address] [place] [address] PCP - General Lucy Christopher DO [address] Bld[address] [place] [address] Consulting Physician Oncology 10/17/24 documented as of this encounter
--- OUTSIDE RECORDS SUMMARY | 2025-04-11 14:02 | XMS_ITS | Encounter Summary ---
Author Organization [facility] nter Address [address] [place] [address] Care Team Providers Care Pediatric Oncologist Name Role Phone Trevor Rolon DO Primary Care Provider Lucy Christopher DO Unavailable Encounter Details Date Type Department Care Team (Late st Contact Info) Description 03/21/2025 Telephone [facility] GASTROENTEROLOGY PRACTICE [address], 2nd Floor Clinic [place] [phone] El Agarwal, BACK HAND [address], [place] [address] Social History Tobacco Use Types Packs/Day Years [...] How often do you attend chur or jewish services? More than 4 times per year 07/24/2022 Do you belong to any clubs o r organizations such as pentecostalism groups, unions, fraternal or athletic groups, or [...] Recorded Patient Health Questionnaire-2 Score 0 09/28/2023 [facility] of Occupat ional Health - [...] * Telephone Encounter - Melissa Jacobs - 03/21/2025 3:14 PM EDT [facility] called at this time to give an update on referral. States patient is scheduledfor a new patient appointment on 04/05 at 0630. Patient is aware of appointment documented in this encounter Plan of Treatment Upcoming Encounters Date Type Department Care Team (Late st Contact Info) Description 04/30/2025 9:00 AM EDT Appointment [facility] [address], 2nd [place] [address] 05/07/2025 3:00 PM EDT Appointment [facility] MAMMOGRAPHY SERVICES BLDG D [address], Bldg [place] [address] 06/18/2025 10:30 AM EST Office Visit [facility] GASTROENTEROLOGY PRACTICE [address], 2nd Floor [place] [address] 06/27/2025 10:00 AM EST Office Visit [facility] SLEEP LAB PRACTICE [address], [place] [address] Marcelina Hyde NP [address] [place] [address] 08/16/2025 10:00 AM EST Office Visit [facility] ENDOCRINOLOGY PRACTICE [address], 8th Floor [facility] [place] [address] Brigitte Mahoney NP [address] [place] [address] 09/18/2025 1:30 PM EDT Office Visit [facility] RHEUMATOLOGY PRACTICE [address], 8th Floor [facility] [place] [address] Suman Treviño MD [address] [place] [place] [address] 12/13/2025 11:00 AM EDT Office Visit [facility] OBGYN PRACTICE [address], 7th Floor [facility] [place] [address] Janice Woodward NP [address] [place] [address] documented as of this encounter Visit Diagnoses Not on filedocumented in this encounter Additional Health Concerns Assessment Noted Time PHQ-9 Depression Total Score: 0 07/24/19 23 3:00 PM EST documented as of this encounter Care Teams Pediatric Oncologist Relationship Specialty Start Date End Date Trevor Rolon DO [address] [facility] [address] [place] [address] PCP - General Lucy Christopher DO [address] [place] [address] Consulting Physician Oncology 10/17/24 documented as of this encounter
--- OUTSIDE RECORDS SUMMARY | 2025-04-11 14:02 | XMS_ITS | Encounter Summary ---
Author Organization [facility] nter Address [address] [place] [address] Care Team Providers Care Automatic Cigar Wrapper Tender Name Role Phone Trevor Rolon DO Primary Care Provider Lucy Christopher DO Unavailable Encounter Details Date Type Department Care Team (Latest Contact Info) Description 03/27/2025 Travel Social History Tobacco Use Types Packs/Day [...] often do you attend chur ch or synagogue services? More than 4 times per year [...] Health Questionnaire-2 Score 0 09/28/2023 [facility] of Occupat ional Health - Occupational Stress [...] place to sleep or slept in a [place] health care facility (including now)? No 07/24/2022 Comments No Sex [...] [facility] [address], 2nd [place] [address] 05/07/2025 3:00 PM EDT Appointment [facility] MAMMOGRAPHY SERVICES [facility] D [address] , [place] [address] 06/18/2025 10:30 AM EST Office Visit [facility]STRO[facility] [address], 2nd [place] [address] 06/27/2025 10:00 AM EST Office Visit [facility] SLEEP LAB [facility] [address] [place] [address] Marcelina Hyde NP [address] [place] [address] 08/16/2025 10:00 AM EST Office Visit [facility] ENDOCRIN[facility] [address], 8th Floor Clinic [facility] [place] [address] Brigitte Mahoney NP [address] Bldg [place] [address] 09/18/2025 1:30 PM EDT Office Visit [facility] RHEUMATOLOGY PRACTICE [address], [address] [facility] [place] [address] Suman Treviño MD [address] [place] [place] [address] 12/13/2025 11:00 AM EDT Office Visit [facility] OBGYN PRACTICE [address], 7th [place] [address] Janice Woodward NP [address] [place] [address] documented as of this encounter Visit Diagnoses Not on filedocumented in this encounter Additional Health Concerns Assessment Noted Time PHQ-9 Depression Total Score: 0 07/24/19 23 3:00 PM EST documented as of this encounter Care Teams Automatic Cigar Wrapper Tender Relationship Specialty Start Date End Date Trevor Rolon DO [address] [facility] [address] [place] [address] PCP - General Lucy Christopher DO [address]ld[address] [place] [address] Consulting Physician Oncology 10/17/24 documented as of this encounter
--- OUTSIDE RECORDS SUMMARY | 2025-04-11 14:02 | XMS_ITS | Encounter Summary ---
Author Organization [facility] nter Address [address] [place] [address] Care Team Providers Care Usability Engineer Name Role Phone Trevor Rolon DO Primary Care Provider Lucy Christopher DO Unavailable Encounter Details Date Type Department Care Team (Late st Contact Info) Description 03/20/2025 Orders Only [facility] GASTROENTEROLOGY PRACTICE [address], 2nd Floor Clinic [place] [phone] El Agarwal, CHEMICAL RADIATION TECHNICIAN [address], [place] [address] Hepatic cirrhosis, unspecified hepatic cirrhosis type, unspecified whether ascites present (Primary Dx) Social History Tobacco Use Types [...] How often do you attend chur or evangelical services? More than 4 times [...] Recorded Patient Health Questionnaire-2 Score 0 09/28/2023 [facility] of Occupat ional Health - Occupational [...] ULTRASOUND [address], 2nd [place] [address] 05/07/2025 3:00 PM EDT Appointment [facility] MAMMOGRAPHY SERVICES BLDG D [address], [place] [address] 06/18/2025 10:30 AM EST Office Visit [facility]STRO[facility] [address], 2nd [place] [address] 06/27/2025 10:00 AM EST Office Visit [facility] SLEEP LAB PRACT[facility] [address], [place] [address] Marcelina Hyde NP [address] [place] [address] 08/16/2025 10:00 AM EST Office Visit [facility] ENDOCRINOLOGY PRACTICE [address], 8th Floor [place] [address] Brigitte Mahoney NP [address] [facility] [place] [address] 09/18/2025 1:30 PM EDT Office Visit [facility] RHEUMATOLOGY PRACTICE [address], 8th Floor [facility] [place] [address] Suman Treviño MD [address] [facility] [address] 12/13/2025 11:00 AM EDT Office Visit [facility] OBGYN PRACTICE [address], 7th [place] [address] Janice Woodward NP [address] [place] [address] documented as of this encounter Results * (ABNORMAL) Comprehensive metabolic panel (03/27/2025 11:52 AM EDT) [facility] Sodium 137 134 - 143 mmol/L 03/27/2025 12:43 PM EDT [facility] Potassium 4.2 3.2 - 4.6 mmol/L 03/27/2025 12:43 PM EDT [facility] Chloride 103 99 - 108 mmol/L 03/27/2025 12:43 PM EDT [facility] CO2 28 19 - 29 mmol/L 03/27/2025 12:43 PM EDT [facility] Anion Gap 6 5 - 15 mmol/L 03/27/2025 12:43 PM [facility] BUN 19 7 - 20 mg/dL 03/27/2025 12:43 PM [facility] Creatinine 1.02 <=1.20 mg/dL 03/27/2025 12:43 PM [facility] BUN/Creatinine Ratio 18.63 10.00 - 20.00 ratio 03/27/2025 12:43 PM [facility] Glucose 117(H) 58 - 104 mg/dL 03/27/2025 12:43 PM [facility] Calcium 9.3 7.9 - 11.1 mg/dL 03/27/2025 12:43 PM [facility] AST 55(H) 10 - 28 U/L 03/27/2025 12:43 PM [facility] ALT (SGPT) 36 <=40 U/L 03/27/2025 12:43 PM [facility] Alkaline Phosphatase 213(H) 29 - 108 U/L 03/27/2025 12:43 PM [facility] Total Protein 6.2 5.9 - 7.9 g/dL 03/27/2025 12:43 PM [facility] Albumin 3.1(L) 3.5 - 5.1 g/dL 03/27/2025 12:43 PM [facility] Globulin, Total 3.1 2.4 - 4.8 g/dL 03/27/2025 12:43 PM [facility] A/G Ratio 1.0 0.6 - 1.6 03/27/2025 12:43 PM [facility] Total Bilirubin 1.9(H) 0.3 - 1.0 mg/dL 03/27/2025 12:43 PM [facility] eGFR (CKD-EPI) 62.1 >60.0 - 200.0 mL/min/1.7 3m*2 03/27/2025 12:43 PM [facility] Blood Venous blood specimen / Unknown Venipuncture / Unknown 03/27/2025 11:52 AM EDT 03/27/2025 12:17 PM EDT us El Agarwal CHEMICAL RADIATION TECHNICIAN LAB BLOOD ORDERABLES Final Re sult Performing Organization Address City/State/[facility] Co de Phone Number [facility] [address] [place] [address], [place] [phone] * (ABNORMAL) CBC (03/27/2025 11:52 AM EDT) Auto WBC 8.8 3.8 - 11.0 10*3/uL 03/27/2025 12:21 PM EDT [facility] RBC 3.97 3.73 - 5.13 10*6/uL 03/27/2025 12:21 PM EDT [facility] Hemoglobin 13.1 11.2 - 15.3 g/dL 03/27/2025 12:21 PM [facility] Hematocrit 39.1 32.6 - 44.6 % 03/27/2025 12:[facility] MCV 98.6(H) 78.8 - 96.0 fL 03/27/2025 12:21 [facility] MCH 33.0 26.2 - 33.0 pg 03/27/2025 12:21 PM [facility] MCHC 33.5 32.7 - 35.1 g/dL 03/27/2025 12:21 PM [facility] RDW 14.5 12.1 - 16.1 % 03/27/2025 12:21 PM [facility] Platelets 88(L) 138 - 402 10*3/uL 03/27/2025 12:21 PM [facility] MPV 7.9 7.0 - 10.6 fL 03/27/2025 12:21 PM [facility] Blood Venous blood specimen / Unknown Venipuncture / Unknown 03/27/2025 11:52 AM EDT 03/27/2025 12:16 PM EDT us El Agarwal CHEMICAL RADIATION TECHNICIAN LAB BLOOD ORDERABLES Final Re sult [facility] [address] [place] [address], documented in this encounter Visit Diagnoses Diagnosis Hepatic cirrhosis, unspecified hepatic cirrhosis type, unspecified whether ascites present- Primary documented in this encounter Additional Health Concerns Assessment Noted Time PHQ-9 Depression Total Score: 0 07/24/19 23 3:00 PM EST documented as of this encounter Care Teams Usability Engineer Relationship Specialty Start Date End Date Trevor Rolon DO [address] [facility] [address] [place] [id number] PCP - General Lucy Christopher DO [address] [facility] [place] [address] Consulting Physician Oncology 10/17/24 documented as of this encounter
--- OUTSIDE RECORDS SUMMARY | 2025-04-11 14:02 | XMS_ITS | Encounter Summary ---
Author Organization [facility] nter Address [address] [place] [address] Care Team Providers Care Farmworker Cranberry Name Role Phone Trevor Rolon DO Primary Care Provider Lucy Christopher DO Unavailable Encounter Details Date Type Department Care Team (Latest Contact Info) Description 03/20/2025 Results Follow-Up [facility] GASTROENTEROLOGY PRACTICE [address], 2nd [place] [address] El Agarwal, SERVICE OR WORK DISPATCHER [address], [place] [address] CBC, Basic metabolic panel, Hepatic function panel, Additional followed-up results: 3 Social History Tobacco Use Types Packs/Day Years [...] Recorded Patient Health Questionnaire-2 Score 0 09/28/2023 [facility] of Occupat ional Health - [...] encounter Miscellaneous Notes * Telephone Encounter - Bharti Boogie - 03/20/2025 10:51 AM EDT Spoke with patient, informed patient MELD score from lab work preformed yesterday is 16. Ask patient to increase spironolactone to 200 mg/day. Continue with bumex 2 mg daily. Inform patient she will need to repeat lab work in 1 week to monitor kidney function after increase of spironolactone, orders have already been placed for these. Ammonia level was elevated at 65. Informed patient to resume lactulose 15 ML twice daily. Informed patient new prescription for spironolactone and lactulose have been sent to her pharmacy. [facility]erral [facility] to [facility], informed patient they should be in contact with her to get appointment scheduled. Patient verbalized understanding. * Telephone Encounter - El Agarwal NP - 03/20/2025 10:34 AM EDT Please inform patient MELD score from lab work performed yesterday is 16. Ask patient to increase spironolactone to 200 mg/day. Continue with Bumex 2 mg daily. Inform patient she will need to repeat lab work in 1 week to monitor kidney function after increase of spironolactone, I have already placed orders for these. Ammonia level was elevated at 65. Inform patient to resume lactulose 15 mL twicedaily. Inform patient new prescription for spironolactone and lactulose have been sent to her pharmacy. Referral will be [facility] to [facility], inform patient they should be in contact with her to get appointment scheduled. documented in this encounter Plan of Treatment Upcoming Encounters Date Type Department Care Team (Late st Contact Info) Description 04/30/2025 9:00 AM EDT Appointment [facility] [address], 2nd [place] [address] 05/07/2025 3:00 PM EDT Appointment [facility] MAMMOGRAPHY SERVICES BL D [address], [facility] [place] [address] 06/18/2025 10:30 AM EST Office Visit [facility]STROENTEROLOG[facility] PRACT[facility] [address], 2nd [place] [address] 06/27/2025 10:00 AM EST Office Visit [facility] SLEEP LAB PRACT[facility] [address] [place] [place] [address] Marcelina Hyde NP [address] [facility] [place] [address] 08/16/2025 10:00 AM EST Office Visit [facility] ENDOCRINOLOG[facility]ACTICE [address], 8th [place] [address] Brigitte Mahoney, CLAU [address] [place]ld[address] [place] [address] 09/18/2025 1:30 PM EDT Office Visit [facility] RHEUMATOLOGY PRACTICE [address], 8th Floor [facility] [place] [address] Suman Treviño MD [address] [place] [facility] 12/13/2025 11:00 AM EDT Office Visit [facility] OBGYN PRACTICE [address], 7th Floor [facility] [address] Janice Woodward NP [address] [place] [address] documented as of this encounter Visit Diagnoses Not on filedocumented in this encounter Additional Health Concerns Assessment Noted Time PHQ-9 Depression Total Score: 0 07/24/19 23 3:00 PM EST documented as of this encounter Care Teams Farmworker Cranberry Relationship Specialty Start Date End Date Trevor Rolon DO [address] [facility] [address] [place] [address] PCP - General Lucy Christopher DO [address] [place] [address] Consulting Physician Oncology 10/17/24 documented as of this encounter
--- OUTSIDE RECORDS SUMMARY | 2025-04-11 14:03 | XMS_ITS | Encounter Summary ---
Author Organization [facility] nter Address [address] [place] [address] Care Team Providers Care Aquatic Scientist Name Role Phone Trevor Rolon DO Primary Care Provider Lucy Christopher DO Unavailable Reason for Referral * Consultation (Routine) - Authorized Specialty Diagnoses / Procedures Referred By Truong bella Referred To Contact Rheumatology Diagnoses Psoriatic arthritis Procedures [place] OFFICE/OUTPATIENT NEW SF MDM 15 MINUTES IL OFFICE/OUTPATIENT NEW LOW MDM 30 MINUTES IL OFFICE/OUTPATIENT NEW MODERATE MDM 45 MINUTES IL OFFICE/OUTPATIENT NEW HIGH MDM 60 MINUTES IL OFFICE/OUTPATIENT ESTABLISHED SF MDM 10 MIN [place] OFFICE/OUTPATIENT ESTABLISHED LOW MDM 20 MIN [place] OFFICE/OUTPATIENT ESTABLISHED MOD MDM 30 MIN [place] OFFICE/OUTPATIENT ESTABLISHED HIGH MDM 40 MIN Laquita Corral PA [address] [facility] [address] [place] [address] Phone: tel: fax: Suman Treviño MD [address] [place] [address] Phone: tel: fax: Referral ID Status Reason Start Date Expiration Date Visits Requested Visits Authorized [id number] Authorized Specialty Services Required 09/01/2024 09/01/2025 1 3 Encounter Details Date Type Department Care Team (Late st Contact Info) Description 09/01/2024 Community Orders EpicCare Link [address] [facility] [address] [place] [address] Laquita Corral PA [address] [facility] [address] [place] [address] Psoriatic arthritis (Primary Dx) Social History Tobacco [...] you attend [facility] or muslim services? More than 4 times per year 07/24/2022 Do you belong to any clubs o r organizations such as sabianism groups, unions, fraternal or athletic groups, or [...] 09/28/2023 [facility] of Occupat ional Health - [...] PMC ULTRASOUND [address], 2nd Floor [place] [phone] 05/07/2025 3:00 PM EDT Appointment [facility] MAMMOGRAPHY SERVICES BLDG D [address], [facility] [place] [address] 06/18/2025 10:30 AM EST Office Visit [facility]STRO[facility] [address], 2nd Floor [place] [phone] 06/27/2025 10:00 AM EST Office Visit [facility] SLEEP [facility] [address], [place] [phone] NovemberMarcelina NP [address] [place] [address] 08/16/2025 10:00 AM EST Office Visit [facility]CRIN[facility] [address], 8th [place] [address] Brigitte Mahoney NP [address] [place] [address] 09/18/2025 1:30 PM EDT Office Visit [facility] RHEUMATOLOG[facility] [address], 8th [place] [address] Suman Treviño MD [address] [place] [address] 12/13/2025 11:00 AM EDT Office Visit [facility] OBGYN [facility] [address], [facility] [place] [phone] Janice Woodward, APPRENTICE PLUMBER [address] [facility] [address] [place] [address] Scheduled Referrals Name Type Priority Associated Diagnoses Order Schedule Ambulatory referral/appointment with Rheumatology Outpatient Referral Routine Psoriatic arthritis Expected: 09/01/2024 (Approximate), Expires: 09/01/2025 documented as of this encounter Visit Diagnoses Diagnosis Psoriatic arthritis- Primary Psoriatic arthropathy documented in this encounter Additional Health Concerns Assessment Noted Time PHQ-9 Depression Total Score: 0 07/24/19 23 3:00 PM EST documented as of this encounter Care Teams Aquatic Scientist Relationship Specialty Start Date End Date Trevor Rolon DO [address] [facility] [address] [place] [phone] PCP - General Lucy Christopher DO [address] [place] [address] Consulting Physician Oncology 10/17/24 documented as of this encounter
--- OUTSIDE RECORDS SUMMARY | 2025-04-11 14:03 | XMS_ITS | Encounter Summary ---
Author Organization [facility] nter Address [address] [place] [address] Care Team Providers Care Cigar Packer And Picker Name Role Phone Trevor Rolon DO Primary Care Provider Lucy Christopher DO Unavailable Reason for Referral * Consultation (Routine) - Authorized Specialty Diagnoses / Procedures Referred By Truong bella Referred To Contact Podiatry Diagnoses Left foot pain Procedures [place] OFFICE/OUTPATIENT NEW SF MDM 15 MINUTES MI OFFICE/OUTPATIENT NEW LOW MDM 30 MINUTES MI OFFICE/OUTPATIENT NEW MODERATE MDM 45 MINUTES MI OFFICE/OUTPATIENT NEW HIGH MDM 60 MINUTES MI OFFICE/OUTPATIENT ESTABLISHED SF MDM 10 MIN MI OFFICE/OUTPATIENT ESTABLISHED LOW MDM 20 MIN MI OFFICE/OUTPATIENT ESTABLISHED MOD MDM 30 MIN MI OFFICE/OUTPATIENT ESTABLISHED HIGH MDM 40 MIN Laquita Corral PA [address] [facility] [address] [place] [address] Phone: tel: fax: Alexandr Zarate, DPM [address] [place] [address] Phone: tel: fax: Referral ID Status Reason Start Date Expiration Date Visits Requested Visits Authorized [id number] Authorized Specialty Services Required 10/27/2024 10/27/2025 1 3 Encounter Details Date Type Department Care Team (Late st Contact Info) Description 10/26/2024 Community Orders EpicCare Link [address] [facility] [place] [address] Laquita Corral PA [address] [facility] [address] [place] [address] Arthralgia of left foot (Primary Dx); Left [...] How often do you attend chur or advent services? More than 4 times per year [...] Patient Health Questionnaire-2 Score 0 09/28/2023 [facility] of Occupat ional Health - Occupational Stress [...] PMC ULTRASOUND [address], 2nd [place] [address] 05/07/2025 3:00 PM EDT Appointment [facility] MAMMOGRAPHY SERVICES BL D [address], [place] [address] 06/18/2025 10:30 AM EST Office Visit [facility] GASTROENTEROLOG[facility]ACT[facility] [address], 2nd [place] [address] 06/27/2025 10:00 AM EST Office Visit [facility] SLEEP LAB [facility] [address] [place] [address] NovemberMarcelina NP [address] [place] [phone] 08/16/2025 10:00 AM EST Office Visit [facility] ENDOCRIN[facility] [address], 8th [place] [address] Brigitte Mahoney NP [address] [place] [address] 09/18/2025 1:30 PM EDT Office Visit [facility] RHEUMATOLOGY [facility] [address], 8th [place] [address] Suman Treviño MD [address] [facility]. [place] [address] 12/13/2025 11:00 AM EDT Office Visit [facility] OBGYN [facility] [address], 7th Floor [place] [address] Janice Woodward, CLAU [address] [place] [address] Scheduled Referrals Name Type Priority Associated Diagnoses Order Schedule Ambulatory referral/appointment with Podiatry Outpatient Referral Routine Left foot pain Expected: 10/27/2024 (Approximate), Expires: 10/27/2025 documented as of this encounter Results * (ABNORMAL) CBC (10/26/2024 1:37 PM EDT) Auto WBC 4.5 3.8 - 11.0 10*3/uL 10/26/2024 4:[facility] RBC 3.93 3.73 - 5.13 10*6/uL 10/26/2024 4:17 PM [facility] LAB[facility] Hemoglobin 13.3 11.2 - 15.3 g/dL 10/26/2024 4:17 PM [facility] Hematocrit 38.5 32.6 - 44.6 % 10/26/2024 4:17 PM [facility] MCV 97.8(H) 78.8 - 96.0 fL 10/26/2024 4:17 PM [facility] MCH 33.9(H) 26.2 - 33.0 pg 10/26/2024 4:17 PM [facility] MCHC 34.6 32.7 - 35.1 g/dL 10/26/2024 4:17 PM [facility] RDW 13.2 12.1 - 16.1 % 10/26/2024 4:17 PM [facility] Platelets 73(L) 138 - 402 10*3/uL 10/26/2024 4:17 PM [facility] MPV 8.8 7.0 - 10.6 fL 10/26/2024 4:17 PM [facility] Blood Venous blood specimen / Unknown Venipuncture / Unknown 10/26/2024 1:37 PM EDT 10/26/2024 1:37 PM EDT Laquita WELSH LAB BLOOD ORDERABLES Final Re sult [facility] [address] [place] [id number], [place] [phone] * Uric acid (10/26/2024 1:37 PM EDT) Uric Acid 3 2 - 8 mg/dL 10/26/2024 4:12 PM EDT [facility] Blood Venous blood specimen / Unknown Venipuncture / Unknown 10/26/2024 1:37 PM EDT 10/26/2024 1:37 PM EDT Narrative [facility] - 10/26/2024 4:12 PM EDT Please note possible changes in reference range and units reported due to change in methodology. us Laquita WELSH LAB BLOOD ORDERABLES Final Re sult Performing Organization Address City/[facility]/ZIP Co de Phone Number [facility] [address] [place] [address], [place] [phone] documented in this encounter Visit Diagnoses Diagnosis Arthralgia of left foot- Primary Left foot pain Pain in soft tissues of limb documented in this encounter Additional Health Concerns Assessment Noted Time PHQ-9 Depression Total Score: 0 07/24/19 23 3:00 PM EST documented as of this encounter Care Teams Cigar Packer And Picker Relationship Specialty Start Date End Date Trevor Rolon DO [address] [facility] [address] [place] [phone] PCP - General Lucy Christopher DO [address] [place] [address] [place] [address] Consulting Physician Oncology 10/17/24 documented as of this encounter
--- OUTSIDE RECORDS SUMMARY | 2025-04-11 14:03 | XMS_ITS | Encounter Summary ---
Author Organization [facility] nter Address [address] [place] [address] Care Team Providers Care Game Farm Supervisor Name Role Phone Trevor Rolon DO Primary Care Provider Lucy Christopher DO Unavailable Reason for Visit * Reason Comments Med Refill Encounter Details Date Type Department Care Team (Late st Contact Info) Description 10/05/[address] [facility] GASTROENTEROLOGY PRACTICE [address], 2nd [place] [address] Mc Grant DO [address] [place] [address] Encephalopathy, hepatic Social History Tobacco [...] How often do you attend chur or scientologist services? More than 4 times per year 07/24/2022 Do you belong to any clubs o r organizations such as confucianism groups, unions, fraternal or athletic groups, or [...] Recorded Patient Health Questionnaire-2 Score 0 07/24/2022 [facility] of Occupat ional Health - Occupational [...] long term (including now)? No 07/24/2022 Comments Unknown Sex [...] Miscellaneous Notes * Telephone Encounter - Mc rGant DO - 10/13/2022 3:28 PM EDT Approving, but needs appt for additional refills. documented in this encounter Plan of Treatment Upcoming Encounters Date Type Department Care Team (Late st Contact Info) Description 04/30/2025 9:00 AM EDT Appointment [facility] ULTRASOUND [address], 2nd Floor [place] [address] 05/07/2025 3:[address] [facility] MAMMOGRAPHY SERVICES BLDG D [address], Bldg D [place] [address] 06/18/2025 10:30 AM EST Office Visit [facility] GASTROENTEROLOGY PRACTICE [address], 2nd Floor [place] [address] 06/27/2025 10:00 AM EST Office Visit [facility] SLEEP LAB PRACTICE [address], [place] [address] NovemberMarcelina NP [address] Bldg [place] [address] 08/16/2025 10:00 AM EST Office Visit [facility] ENDOCRINOLOGY PRACTICE [address], [address] [facility] [address] Brigitte Mahoney NP [address] [place] [address] 09/18/2025 1:30 PM EDT Office Visit [facility] RHEUMATOLOGY PRACTICE [address], [address] [place] [address] Suman Treviño MD [address] [place] [address] 12/13/2025 11:00 AM EDT Office Visit [facility] OBGYN [facility] [address], 7th [place] [address] Janice Woodward NP [address] [place] [address] documented as of this encounter Visit Diagnoses Diagnosis Encephalopathy, hepatic Hepatic encephalopathy documented in this encounter Additional Health Concerns Assessment Noted Time PHQ-9 Depression Total Score: 0 07/24/19 23 3:00 PM EST documented as of this encounter Care Teams Game Farm Supervisor Relationship Specialty Start Date End Date Trevor Rolon DO [address] [facility] [address] [place] [address] PCP - General Lucy Christopher DO [address] [facility] [place] [address] Consulting Physician Oncology 10/17/24 documented as of this encounter
--- OUTSIDE RECORDS SUMMARY | 2025-04-11 14:03 | XMS_ITS | Encounter Summary ---
Author Organization [facility] nter Address [address] [place] [address] Care Team Providers Care Tank Charger Name Role Phone Trevor Rolon DO Primary Care Provider Lucy Christopher DO Unavailable Reason for Referral * Medications - Closed Specialty Diagnoses / Procedures Referred By Truong bella Referred To Contact Diagnoses Type 2 diabetes mellitus with hyperglycemia, with long-term current use of insulin Brigitte Mahoney NP [address] [facility] [place] [address] Phone: tel: fax: Referral ID Status Reason Start Date Expiration Date Visits Re quested Visits Authorized [id number] Closed 1 1 Encounter Details Date Type Department Care Team (Late st Contact Info) Description 02/26/2025 Orders Only [facility] ENDOCRINOLOG[facility] PRACTICE [address], 8th [place] [address] Lesly Agarwal [address] [place] [address] Type 2 diabetes mellitus with hyperglycemia, with long-term current use of insulin Social History Tobacco Use Types Packs/Day Years [...] week 07/24/2022 How often do you attend [facility] or worship services? More than 4 times per year [...] Recorded Patient Health Questionnaire-2 Score 0 09/28/2023 [facility] of Occupat ional Health [...] PMC ULTRASOUND [address], 2nd [place] [address] 05/07/2025 3:00 PM EDT Appointment [facility] MAMMOGRAPHY SERVICES BLDG D [address], [place] [address] 06/18/2025 10:30 AM EST Office Visit [facility] GASTROENTEROLOGY PRACTICE [address], 2nd Floor [place] [address] 06/27/2025 10:00 AM EST Office Visit [facility] SLEEP LAB PRACTICE [address], [place] [address] Marcelina Hyde NP [address] [place] [address] 08/16/2025 10:00 AM EST Office Visit [facility] ENDOCRINOLOGY PRACTICE [address], 8th Floor [facility] [place] [address] Brigitte Mahoney NP [address] [place] [address] 09/18/2025 1:30 PM EDT Office Visit [facility] RHEUMATOLOGY PRACTICE [address], 8th [place] [address] Suman Treviño MD [address] [place] [address] 12/13/2025 11:00 AM EDT Office Visit [facility] OBGYN PRACTICE [address], 7th [place] [address] Janice Woodward NP [address] [place] [address] documented as of this encounter Visit Diagnoses Diagnosis Type 2 diabetes mellitus with hyperglycemia, with long-term current use of insulin documented in this encounter Additional Health Concerns Assessment Noted Time PHQ-9 Depression Total Score: 0 07/24/19 23 3:00 PM EST documented as of this encounter Care Teams Tank Charger Relationship Specialty Start Date End Date Trevor Rolon DO [address] [facility] [address] [place] [phone] PCP - General Lucy Christopher DO [address] [facility] [place] [address] Consulting Physician Oncology 10/17/24 documented as of this encounter
--- OUTSIDE RECORDS SUMMARY | 2025-04-11 14:03 | XMS_ITS | Encounter Summary ---
Author Organization [facility] nter Address [address] [place] [address] Care Team Providers Care Gaming Table Operator Name Role Phone Trevor Rolon DO Primary Care Provider Lucy Christopher DO Unavailable Reason for Visit * Reason Comments Med Refill Encounter Details Date Type Department Care Team (Late st Contact Info) Description 09/14/2022 Refill [facility] NEUROLOGY PRACTICE [address], 8th Floor Clinic [place] [phone] Lupe Villalta, RESIDENTIAL ROOFER [address] [facility] [place] [address] Other specified diabetes mellitus with [...] How often do you attend chur or presybeterian services? More than 4 times per year 07/24/2022 Do you belong to any clubs o r organizations such as christian groups, unions, fraternal or athletic groups, or [...] Recorded Patient Health Questionnaire-2 Score 0 07/24/2022 [facility] of Occupat ional Health [...] a residential (including now)? No 07/24/2022 Comments Unknown Sex [...] ULTRASOUND [address], 2nd Floor [place] [address] 05/07/2025 3:00 PM EDT Appointment [facility] MAMMOGRAPHY SERVICES BLDG D [address], Bldg [place] [address] 06/18/2025 10:30 AM EST Office Visit [facility] GASTROENTEROLOGY PRACTICE [address], 2nd Floor [place] [address] 06/27/2025 10:00 AM EST Office Visit [facility] SLEEP LAB PRACTICE [address], [place] [address] NovemberMarcelina NP [address] Bldg [place] [address] 08/16/2025 10:00 AM EST Office Visit [facility] ENDOCRINOLOGY PRACTICE [address], 8th [place] [facility] [place] [address] Brigitte Mahoney NP [address] [place] [address] 09/18/2025 1:30 PM EDT Office Visit [facility] RHEUMATOLOGY PRACTICE [address], 8th [place] [facility] [place] [address] Suman Treviño MD [address] [place] [address] 12/13/2025 11:00 AM EDT Office Visit [facility] [address], 7th [place] [address] Janice Woodward NP [address] [place] [address] documented as of this encounter Visit Diagnoses Diagnosis Other specified diabetes mellitus with diabetic neuropathy, unspecified documented in this encounter Additional Health Concerns Assessment Noted Time PHQ-9 Depression Total Score: 0 07/24/19 23 3:00 PM EST documented as of this encounter Care Teams Gaming Table Operator Relationship Specialty Start Date End Date Trevor Rolon DO [address] [facility] [address] [place] [address] PCP - General Lucy Christopher DO [address] [facility] [place] [address] Consulting Physician Oncology 10/17/24 documented as of this encounter
--- OUTSIDE RECORDS SUMMARY | 2025-04-11 14:03 | XMS_ITS | Encounter Summary ---
Author Organization [facility] nter Address [address] [place] [address] Care Team Providers Care Library Serials Assistant Name Role Phone Trevor Rolon DO Primary Care Provider Lucy Christopher DO Unavailable Encounter Details Date Type Department Care Team (Late st Contact Info) Description 02/23/2025 Telephone [facility] ENDOCRINOLOGY PRACTICE [address], 8th [place] [address] Brigitte Mahoney, CLAU [address] [place] [address] Social History Tobacco Use Types [...] week 07/24/2022 How often do you attend [facility] or evangelical services? More than 4 times [...] Recorded Patient Health Questionnaire-2 Score 0 09/28/2023 [facility] of Occupat ional Health - Occupational [...] encounter Miscellaneous Notes * Telephone Encounter - Lesly Agarwal - 02/26/2025 7:59 AM EDT Rx sent. * Telephone Encounter - Lary Galvan - 02/23/2025 5:12 PM EDT Received a call from Macario at [facility] requesting refills for patient Novolog. Patient last appointment: 08/16/24, Next scheduled appointment: . Please advise refill. documented in this encounter Plan of Treatment Upcoming Encounters Date Type Department Care Team (Late st Contact Info) Description 04/30/2025 9:00 AM EDT Appointment [facility] ULTRASOUND [address], 2nd [place] [address] 05/07/2025 3:00 PM EDT Appointment [facility] MAMMOGRAPHY SERVICES BL D [address], [place] [address] 06/18/2025 10:30 AM EST Office Visit [facility] GASTROENTEROLOGY PRACTICE [address], 2nd Floor [place] [address] 06/27/2025 10:00 AM EST Office Visit [facility] SLEEP LAB PRACTICE [address], [place] [facility] [place] [address] NovemberMarcelina NP [address] [place] [address] 08/16/2025 10:00 AM EST Office Visit [facility] ENDOCRINOLOGY PRACTICE [address], 8th Floor [facility] [place] [address] Brigitte Mahoney NP [address] [place] [address] 09/18/2025 1:30 PM EDT Office Visit [facility] RHEUMATOLOGY PRACTICE [address], 8th [place] [address] Suman Treviño MD [address] [facility] [place] [address] 12/13/2025 11:00 AM EDT Office Visit [facility] [address], 7th [place] [address] Janice Woodward NP [address] [place] [address] documented as of this encounter Visit Diagnoses Not on filedocumented in this encounter Additional Health Concerns Assessment Noted Time PHQ-9 Depression Total Score: 0 07/24/19 23 3:00 PM EST documented as of this encounter Care Teams Library Serials Assistant Relationship Specialty Start Date End Date Trevor Rolon DO [address] [facility] [address] [place] [address] PCP - General Lucy Christopher DO 911 [facility] [place] [address] Consulting Physician Oncology 10/17/24 documented as of this encounter
--- OUTSIDE RECORDS SUMMARY | 2025-04-11 14:03 | XMS_ITS | Encounter Summary ---
Author Organization [facility] nter Address [address] [place] [address] Care Team Providers Care Green Tire Inspector Name Role Phone Trevor Rolon DO Primary Care Provider Lucy Christopher DO Unavailable Encounter Details Date Type Department Care Team (Late st Contact Info) Description 12/29/2022 Orders Only [facility] DIABETES EDUCATION [address], 2nd Floor [place] [address] Brigitte Mahoney, CLAU [address] [place] [address] Social History Tobacco Use Types [...] 07/24/2022 How often do you attend [facility] or yazdanism services? More than 4 times per year 07/24/2022 Do you belong to any clubs o r organizations such as baptism groups, unions, fraternal or athletic groups, or [...] Recorded Patient Health Questionnaire-2 Score 0 07/24/2022 [facility]at ional [facility] [...] ULTRASOUND [address], 2nd [place] [address] 05/07/2025 3:00 PM EDT Appointment [facility] MAMMOGRAPHY SERVICES BLDG D [address], [place] [address] 06/18/2025 10:30 AM EST Office Visit [facility] GASTROENTEROLOGY PRACTICE [address], 2nd Floor [facility] [place] [address] 06/27/2025 10:00 AM EST Office Visit [facility] SLEEP LAB PRACTICE [address], [place] [address] Marcelina Hyde NP [address] [place] [place] [address] 08/16/2025 10:00 AM EST Office Visit [facility] ENDOCRINOLOGY PRACTICE [address], 8th Floor [facility] [place] [address] Brigitte Mahoney NP [address] [facility] [place] [address] 09/18/2025 1:30 PM EDT Office Visit [facility] RHEUMATOLOGY PRACTICE [address], 8th Floor [facility] [place] [address] Suman Treviño MD [address] [place] [facility] [address] 12/13/2025 11:00 AM EDT Office Visit [facility] OBGYN PRACTICE [address], 7th Floor [facility] [place] [address] Janice Woodward NP [address] [place] [address] documented as of this encounter Visit Diagnoses Not on filedocumented in this encounter Additional Health Concerns Assessment Noted Time PHQ-9 Depression Total Score: 0 07/24/19 23 3:00 PM EST documented as of this encounter Care Teams Green Tire Inspector Relationship Specialty Start Date End Date Trevor Rolon DO [address] [facility] [address] [place] [address] PCP - General Lucy Christopher DO [address] [facility] [place] [address] Consulting Physician Oncology 10/17/24 documented as of this encounter
--- OUTSIDE RECORDS SUMMARY | 2025-04-11 14:03 | XMS_ITS | Encounter Summary ---
Author Organization [facility] nter Address [address] [place] [address] Care Team Providers Care Wet Washer Machine Name Role Phone Trevor Rolon DO Primary Care Provider Lucy Christopher DO Unavailable Reason for Referral * Imaging (Routine) - Closed Specialty Diagnoses / Procedures Referred By Conttrudy bella Referred To Contact Cardiology Diagnoses PAD (peripheral artery disease) Procedures US arterial doppler bilateral lower ext Vascular US lower extremity arterial Doppler complete Ben Knox MD [address] [place] [address] Phone: tel: fax: [facility] CARDIAC DIAGNOSTIC [address], 1st [place] [address] Phone: tel: fax: Referral ID Status Reason Start Date Expiration Date V isits Requested Visits Authorized [id number] Closed Perform Procedure 11/15/2024 11/15/2025 1 1 Encounter Details Date Type Department Care Team (Late st Contact Info) Description 11/15/2024 Orders Only [facility] NEUROLOGY PRACTICE [address] [address] Ben Knox MD [address] [facility] [place] [address] PAD (peripheral artery disease) (Primary [...] week 07/24/2022 How often do you attend [facility] or zoroastrianism services? More than 4 times per year [...] Recorded Patient Health Questionnaire-2 Score 0 09/28/2023 [facility] - Occupational Stress Questionnaire Answer Date [...] PMC ULTRASOUND [address], 2nd Floor [facility] [place] [place] [address] 05/07/2025 3:00 PM EDT Appointment [facility] MAMMOGRAPHY SERVICES BLDG D [address], [place] [address] 06/18/2025 10:30 AM EST Office Visit [facility] GASTROENTEROLOGY PRACTICE [address], 2nd Floor [facility] [place] [address] 06/27/2025 10:00 AM EST Office Visit [facility] SLEEP LAB PRACTICE [address], [place] [address] NovemberMarcelina NP [address] Bldg A [place] [phone] 08/16/2025 10:00 AM EST Office Visit [facility] ENDOCRINOLOGY PRACTICE [address], 8th [place] [address] Brigitte Mahoney NP [address] [place] [place] [address] 09/18/2025 1:30 PM EDT Office Visit [facility] RHEUMATOLOGY PRACTICE [address], 8th [place] [address] Suman Treviño MD [address] A [place] [id number] 12/13/2025 11:00 AM EDT Office Visit [facility] OBGYN PRACTICE [address], 7th [place] [address] Janice Woodward NP [address] [place] [id number] documented as of this encounter Results * [...] Dsouza MD 11/15/2024 02:41 PM EDT RP [facility] 11/15/2024 2:41 PM EDT PROCEDURE: US [...] Dsouza MD 11/15/2024 02:41 PM EDT RPWorkstation: [id number] us Ben Knox MD [facility] US PROCEDURES Final Result documented in this encounter Visit Diagnoses Diagnosis PAD (peripheral artery disease)- Primary Unspecified peripheral vascular disease PAD (peripheral artery disease) Unspecified peripheral vascular disease documented in this encounter Additional Health Concerns Assessment Noted Time PHQ-9 Depression Total Score: 0 07/24/19 23 3:00 PM EST documented as of this encounter Care Teams Wet Washer Machine Relationship Specialty Start Date End Date Trevor Rolon DO [address] [facility] [address] [place] [address] PCP - General Lucy Christopher DO [address] [facility] [place] [address] Consulting Physician Oncology 10/17/24 documented as of this encounter
--- OUTSIDE RECORDS SUMMARY | 2025-04-11 14:03 | XMS_ITS | Encounter Summary ---
Author Organization [facility] nter Address [address] [place] [address] Care Team Providers Care Ag Equipment Field Service Technician Name Role Phone Trevor Rolon DO Primary Care Provider Lucy Christopher DO Unavailable Reason for Referral * Consultation (Routine) - Authorized Specialty Diagnoses / Procedures Referred By Truong bella Referred To Contact Obstetrics and Gynecology Diagnoses Well woman exam with routine gynecological exam Procedures MS OFFICE/OUTPATIENT NEW SF MDM 15 MINUTES MS OFFICE/OUTPATIENT NEW LOW MDM 30 MINUTES MS OFFICE/OUTPATIENT NEW MODERATE MDM 45 MINUTES MS OFFICE/OUTPATIENT NEW HIGH MDM 60 MINUTES MS OFFICE/OUTPATIENT ESTABLISHED SF MDM 10 MIN MS OFFICE/OUTPATIENT ESTABLISHED LOW MDM 20 MIN MS OFFICE/OUTPATIENT ESTABLISHED MOD MDM 30 MIN MS OFFICE/OUTPATIENT ESTABLISHED HIGH MDM 40 MIN Laquita Corral PA [address] [facility] [address] [place] [address] Phone: tel: fax: Lupe Crisostomo DO [address] [place] [address] Phone: tel: fax: Referral ID Status Reason Start Date Expiration Date Visits Requested Visits Authorized [id number] Authorized Specialty Services Required 11/28/2024 11/28/2025 1 3 Encounter Details Date Type Department Care Team (Latest Contact Info) Description 11/28/2024 Community Orders Epic[facility] Link [address] [place] [address] Laquita Corral PA [address] [facility] [address] [place] [address] Well woman exam with routine gynecological exam [...] Recorded Patient Health Questionnaire-2 Score 0 09/28/2023 [facility] Occupat ional Health - Occupational [...] PMC ULTRASOUND [address], 2nd [place] [address] 05/07/2025 3:00 PM EDT Appointment [facility] MAMMOGRAPHY SERVICES BL D [address], Bl D [place] [phone] 06/18/2025 10:30 AM EST Office Visit [facility] GASTROENTEROLOGY PRACTICE [address] 2nd [place] [address] 06/27/2025 10:00 AM EST Office Visit [facility] SLEEP LAB PRACTICE [address] [place] [address] NovemberMarcelina NP [address] [place] [phone] 08/16/2025 10:00 AM EST Office Visit [facility] ENDOCRINOLOGY PRACTICE [address], 8th [place] [address] Brigitte Mahoney NP [address] [place] [address] 09/18/2025 1:30 PM EDT Office Visit [facility] RHEUMATOLOGY PRACTICE [address], 8th [place] [address] Suman Treviño MD [address] [facility] [place] [address] 12/13/2025 11:00 AM EDT Office Visit [facility] OBGYN PRACTICE [address], 7th [place] [address] Janice Woodward, CLAU [address] [place] [address] Scheduled Referrals Name Type Priority Associated Diagnoses [...] documented as of this encounter Care Teams Ag Equipment Field Service Technician Relationship Specialty Start Date End Date Trevor Rolon DO [address] [facility] [address] [place] [phone] PCP - General Lucy Christopher DO [address] [place] [address] Consulting Physician Oncology 10/17/24 documented as of this encounter
--- OUTSIDE RECORDS SUMMARY | 2025-04-11 14:03 | XMS_ITS | Encounter Summary ---
Author Organization [facility] nter Address [address] [place] [address] Care Team Providers Care Senior Quality Control Technician Name Role Phone Trevor Rolon DO Primary Care Provider Lucy Christopher DO Unavailable Reason for Referral * Consultation (Routine) - Authorized Specialty Diagnoses / Procedures Referred By Truong bella Referred To Contact Sleep Medicine Diagnoses Excessive daytime sleepiness Procedures IN OFFICE/OUTPATIENT NEW SF MDM 15 MINUTES IN OFFICE/OUTPATIENT NEW LOW MDM 30 MINUTES IN OFFICE/OUTPATIENT NEW MODERATE MDM 45 MINUTES IN OFFICE/OUTPATIENT NEW HIGH MDM 60 MINUTES IN OFFICE/OUTPATIENT ESTABLISHED SF MDM 10 MIN IN OFFICE/OUTPATIENT ESTABLISHED LOW MDM 20 MIN IN OFFICE/OUTPATIENT ESTABLISHED MOD MDM 30 MIN IN OFFICE/OUTPATIENT ESTABLISHED HIGH MDM 40 MIN Laquita Corral PA [address] [facility] [address] [place] [address] Phone: tel: fax: [facility] SLEEP LAB PRACTICE [address], 9th [place] [address] Phone: tel: fax: Referral ID Status Reason Start Date Expiration Date Visits Requested Visits Authorized [id number] Authorized Specialty Services Required 11/23/2024 11/23/2025 1 3 Encounter Details Date Type Department Care Team (Late st Contact Info) Description 11/23/2024 Community Orders [facility] Link [address] [address] Laquita Corral PA [address] [facility] [address] [place] [address] Excessive daytime sleepiness (Primary Dx) Social History [...] you attend [facility] or yazidism services? More than 4 times [...] Recorded Patient Health Questionnaire-2 Score 0 09/28/2023 [facility] of Occupat ional Health - Occupational [...] PMC ULTRASOUND [address], 2nd [place] [address] 05/07/2025 3:00 PM EDT Appointment [facility] MAMMOGRAPHY SERVICES BL D [address], [place] [address] 06/18/2025 10:30 AM EST Office Visit [facility] GASTROENTEROLOGY PRACTICE [address], 2nd [place] [address] 06/27/2025 10:00 AM EST Office Visit [facility] SLEEP LAB PRACTICE [address], [place] [phone] NovemberMarcelina NP [address] [place] [address] 08/16/2025 10:00 AM EST Office Visit [facility] ENDOCRINOLOGY PRACTICE [address], 8th [place] [address] Brigitte Mahoney NP [address] [facility] [place] [phone] 09/18/2025 1:30 PM EDT Office Visit [facility] RHEUMATOLOGY PRACTICE [address], 8th [place] [address] Suman Treviño MD [address] [facility] [place] [address] 12/13/2025 11:00 AM EDT Office Visit [facility] OBGYN PRACTICE [address], 7th [place] [address] Janice Woodward, PREKINDERGARTEN TEACHER [address] [place] [address] Scheduled Referrals Name Type Priority Associated Diagnoses [...] documented as of this encounter Care Teams Senior Quality Control Technician Relationship Specialty Start Date End Date Trevor Rolon DO [address] [facility] [address] [place] [phone] PCP - General Lucy Christopher DO [address] [place] [address] Consulting Physician Oncology 10/17/24 documented as of this encounter
--- OUTSIDE RECORDS SUMMARY | 2025-04-11 14:03 | XMS_ITS | Encounter Summary ---
Author Organization [facility] nter Address [address] [place] [address] Care Team Providers Care Reservationist Name Role Phone Trevor Rolon DO Primary Care Provider Lucy Christopher DO Unavailable Encounter Details Date Type Department Care Team (Latest Contact Info) Description 02/22/2025 Travel Social History Tobacco Use Types Packs/Day [...] often do you attend chur ch or congregation services? More than 4 times per year 07/24/2022 Do you belong to any clubs o r organizations such as hindu groups, unions, fraternal or athletic groups, or [...] Questionnaire-2 Score 0 09/28/2023 [facility] of Occupat ional Health - Occupational [...] PMC ULTRASOUND [address], 2nd [place] [address] 05/07/2025 3:00 PM EDT Appointment [facility] MAMMOGRAPHY SERVICES [facility] D [address] , [facility] [place] [address] 06/18/2025 10:30 AM EST Office Visit [facility] GASTROENTEROLOGY PRACTICE [address], 2nd [place] [address] 06/27/2025 10:00 AM EST Office Visit [facility] SLEEP LAB PRACTICE [address] [place] [address] Marcelina Hyde NP [address] [facility] [place] [address] 08/16/2025 10:00 AM EST Office Visit [facility] ENDOCRINOLOGY PRACTICE [address], 8th [place] [address] Brigitte Mahoney NP [address] Bldg [place] [address] 09/18/2025 1:30 PM EDT Office Visit [facility] RHEUMATOLOGY PRACTICE [address], 8th Floor [facility] [place] [address] Suman Treviño MD [address] [place] [address] 12/13/2025 11:00 AM EDT Office Visit [facility] OBGYN PRACTICE [address], 7th [place] [address] Janice Woodward NP [address] [place] [address] documented as of this encounter Visit Diagnoses Not on filedocumented in this encounter Additional Health Concerns Assessment Noted Time PHQ-9 Depression Total Score: 0 07/24/19 23 3:00 PM EST documented as of this encounter Care Teams Reservationist Relationship Specialty Start Date End Date Trevor Rolno DO [address] [facility] [address] [place] [address] PCP - General Lucy Christopher DO [address] [place] [address] Consulting Physician Oncology 10/17/24 documented as of this encounter
--- OUTSIDE RECORDS SUMMARY | 2025-04-11 14:03 | XMS_ITS | Encounter Summary ---
Author Organization [facility] nter Address [address] [place] [address] Care Team Providers Care Engine Setter Name Role Phone Trevor Rolon DO Primary Care Provider Lucy Christopher DO Unavailable Encounter Details Date Type Department Care Team (Latest Contact Info) Description 02/26/2025 Travel Social History Tobacco Use Types Packs/Day [...] any clubs o r organizations such as orthodox groups, unions, fraternal or athletic groups, or [...] Questionnaire-2 Score 0 09/28/2023 [facility] of Occupat ional Health - Occupational [...] PMC ULTRASOUND [address], 2nd [place] [address] 05/07/2025 3:00 PM EDT Appointment [facility] MAMMOGRAPHY SERVICES [facility] D [address] , [facility] [address] 06/18/2025 10:30 AM EST Office Visit [facility] GASTROENTEROLOGY PRACTICE [address], 2nd [place] [address] 06/27/2025 10:00 AM EST Office Visit [facility] SLEEP LAB PRACTICE [address] [place] [address] Marcelina Hyde NP [address] [facility] [place] [address] 08/16/2025 10:00 AM EST Office Visit [facility] ENDOCRINOLOG[facility] PRACT[facility] [address], 8th Floor [facility] [address] Brigitte Mahoney NP [address] Bldg A [place] [address] 09/18/2025 1:30 PM EDT Office Visit [facility] RHEUMATOLOGY PRACTICE [address], 8th Floor [facility] [address] Suman Treviño MD [address] [place] [address] 12/13/2025 11:00 AM EDT Office Visit [facility] OBGYN PRACTICE [address], 7th [place] [address] Janice Woodward NP [address] [place] [address] documented as of this encounter Visit Diagnoses Not on filedocumented in this encounter Additional Health Concerns Assessment Noted Time PHQ-9 Depression Total Score: 0 07/24/19 23 3:00 PM EST documented as of this encounter Care Teams Engine Setter Relationship Specialty Start Date End Date Trevor Rolon DO [address] [facility] [address] [place] [address] PCP - General Lucy Christopher DO [address] [place] [address] Consulting Physician Oncology 10/17/24 documented as of this encounter
--- OUTSIDE RECORDS SUMMARY | 2025-04-11 14:03 | XMS_ITS | Encounter Summary ---
Author Organization [facility] nter Address [address] [place] [address] Care Team Providers Care Lime Kiln And Recausticizing Operator Name Role Phone Trevor Rolon DO Primary Care Provider Lucy Christopher DO Unavailable Reason for Referral * Consultation (Routine) - Authorized Specialty Diagnoses / Procedures Referred By Truong bella Referred To Contact Hematology Diagnoses Monoclonal gammopathy Procedures TX OFFICE/OUTPATIENT NEW SF MDM 15 MINUTES TX OFFICE/OUTPATIENT NEW LOW MDM 30 MINUTES TX OFFICE/OUTPATIENT NEW MODERATE MDM 45 MINUTES TX OFFICE/OUTPATIENT NEW HIGH MDM 60 MINUTES TX OFFICE/OUTPATIENT ESTABLISHED SF MDM 10 MIN TX OFFICE/OUTPATIENT ESTABLISHED LOW MDM 20 MIN TX OFFICE/OUTPATIENT ESTABLISHED MOD MDM 30 MIN TX OFFICE/OUTPATIENT ESTABLISHED HIGH MDM 40 MIN Ben [place] MD [address] [facility] [place] [address] Phone: tel: fax: Referral ID Status Reason Start Date Expiration Date Visits Requested Visits Authorized [id number] Authorized Specialty Services Required 11/17/2024 11/17/2025 1 3 Encounter Details Date Type Department Care Team (Late st Contact Info) Description 11/17/2024 Orders Only [facility] NEUROLOGY PRACTICE [facility] [address], [address] [place] [address] Mary Cobos, CLAU [address] [place] [address] Monoclonal gammopathy (Primary Dx) Social [...] week 07/24/2022 How often do you attend [facility] or anabaptist services? More than 4 times per year 07/24/2022 Do you belong to any clubs o r organizations such as advent groups, unions, fraternal or athletic groups, or [...] No 07/24/2022 Housing Stability Vital Sign Answer Amtt e Recorded In the last 12 months, [...] PMC ULTRASOUND [address], 2nd Floor [facility] [place] [address] 05/07/2025 3:00 PM EDT Appointment [facility] MAMMOGRAPHY SERVICES BLDG D [address], [place] [address] 06/18/2025 10:30 AM EST Office Visit [facility] GASTROENTEROLOGY PRACTICE [address], 2nd [place] [address] 06/27/2025 10:00 AM EST Office Visit [facility] SLEEP LAB PRACTICE [address], Tommy [facility] [place] [address] Marcelina Hyde NP [address] [place] [address] 08/16/2025 10:00 AM EST Office Visit [facility] ENDOCRINOLOGY PRACTICE [address], 8th [place] [address] Brigitte Mahoney NP [address]ld[address] [place] [phone] 09/18/2025 1:30 PM EDT Office Visit [facility] RHEUMATOLOGY PRACTICE [address], 8th [place] [address] Suman Treviño MD [address] [place] [address] 12/13/2025 11:00 AM EDT Office Visit [facility] O[facility] [address], 7th [place] [address] Janice Woodward, CLAU [address] [place] [address] Scheduled Referrals Name Type Priority Associated Diagnoses Order Schedule Ambulatory referral/appointment with Hematology Outpatient Referral Routine Monoclonal gammopathy Expected: 11/17/2024 (Approximate), Expires: 11/17/2025 documented as of this encounter Visit Diagnoses Diagnosis Monoclonal gammopathy- Primary Monoclonal paraproteinemia documented in this encounter Additional Health Concerns Assessment Noted Time PHQ-9 Depression Total Score: 0 07/24/19 23 3:00 PM EST documented as of this encounter Care Teams Lime Kiln And Recausticizing Operator Relationship Specialty Start Date End Date Trevor Rolon DO [address] [facility] [address] [place] [phone] PCP - General Lucy Christopher DO [address] [place] [address] Consulting Physician Oncology 10/17/24 documented as of this encounter
--- OUTSIDE RECORDS SUMMARY | 2025-04-11 14:03 | XMS_ITS | Encounter Summary ---
Author Organization [facility] nter Address [address] [place] [address] Care Team Providers Care Mineral Mixer Name Role Phone Trevor Rolon DO Primary Care Provider Lucy Christopher DO Unavailable Reason for Referral * Medications - Authorized Specialty Diagnoses / Procedures Referred By Truong bella Referred To Contact Diagnoses Diabetic polyneuropathy associated with type 2 diabetes mellitus Alexandr Zarate DPM [address] [place] [address] Phone: tel: fax: Referral ID Status Reason Start Date Expiration Date V isits Requested Visits Authorized [id number] Authorized 02/27/2025 02/26/2026 1 1 Encounter Details Date Type Department Care Team (Late st Contact Info) Description 02/27/2025 Orders Only [facility] ORTHOPEDIC PODIATRY PRACTICE [address], 6th [place] [address] Marion Chaney RN [address] [place] [address] Diabetic polyneuropathy associated with type 2 diabetes mellitus Social History Tobacco Use Types Packs/Day Years [...] 07/24/2022 How often do you attend [facility] or gnosticist services? More than 4 times per year [...] PMC ULTRASOUND [address], 2nd [place] [address] 05/07/2025 3:00 PM EDT Appointment [facility] MAMMOGRAPHY SERVICES BL D [address], Bldg [place] [address] 06/18/2025 10:30 AM EST Office Visit [facility] GASTROENTEROLOGY PRACTICE [address], 2[address] [place] [address] 06/27/2025 10:00 AM EST Office Visit [facility] SLEEP LAB PRACTICE [address], [place] [address] November, Marcelina Coughlin NP [address] [place] [address] 08/16/2025 10:00 AM EST Office Visit [facility] ENDOCRINOLOGY PRACTICE [address], 8[address] [place] [address] Brigitte Mahoney NP [address] [place] [address] 09/18/2025 1:30 PM EDT Office Visit [facility] RHEUMATOLOGY PRACTICE [address], 8th Floor [facility] [place] [address] Suman Treviño MD [address] [facility] [place] [address] 12/13/2025 11:00 AM EDT Office Visit [facility] OBGYN PRACTICE [address], 7[address] [place] [address] Janice Woodward NP [address] [place] [address] documented as of this encounter Visit Diagnoses Diagnosis Diabetic polyneuropathy associated with type 2 diabetes mellitus documented in this encounter Additional Health Concerns Assessment Noted Time PHQ-9 Depression Total Score: 0 07/24/19 3:00 PM EST documented as of this encounter Care Teams Mineral Mixer Relationship Specialty Start Date End Date Trevor Rolon DO [address] [facility] [address] [place] [id number] PCP - General Lucy Christopher DO [address] [facility] [address] [facility] [place] [address] Consulting Physician Oncology 10/17/24 documented as of this encounter
--- OUTSIDE RECORDS SUMMARY | 2025-04-11 14:03 | XMS_ITS | Encounter Summary ---
Author Organization [facility] nter Address [address] [place] [address] Care Team Providers Care Lpn Cma Name Role Phone Trevor Rolon DO Primary Care Provider Lucy Christopher DO Unavailable Encounter Details Date Type Department Care Team (Late st Contact Info) Description 02/27/2025 Orders Only [facility] ENDOCRINOLOG[facility] PRACTICE [address], 8th Floor Clinic [place] [phone] Lesly Agarwal [address] [place] [address] Type 2 diabetes mellitus with hyperglycemia, with [...] you attend [facility] or spiritism services? More than 4 times [...] Recorded Patient Health Questionnaire-2 Score 0 09/28/2023 [facility] of Occupat ional Health - Occupational Stress [...] PMC ULTRASOUND [address], 2nd [place] [address] 05/07/2025 3:00 PM EDT Appointment [facility] MAMMOGRAPHY SERVICES FARRUKH D [address], [place] [address] 06/18/2025 10:30 AM EST Office Visit [facility] GASTROENTEROLOG[facility] PRACTICE [address], 2nd [place] [address] 06/27/2025 10:00 AM EST Office Visit [facility] SLEEP LAB PRACTICE [address] [place] [address] NovemberMarcelina NP [address]ld[address] [place] [address] 08/16/2025 10:00 AM EST Office Visit [facility] ENDOCRINOLOGY PRACTICE [address], 8th Floor [place] [address] Brigitte Mahoney NP [address] Bld[address] [place] [address] 09/18/2025 1:30 PM EDT Office Visit [facility] RHEUMATOLOGY PRACTICE [address], 8th [place] [address] Suman Treviño MD [address] [facility]. [place] [address] 12/13/2025 11:00 AM EDT Office Visit [facility] OBGYN PRACTICE [address], 7th [place] [address] Janice Woodward NP [address] [place] [address] documented as of this encounter Visit Diagnoses Diagnosis Type 2 diabetes mellitus with hyperglycemia, with long-term current use of insulin documented in this encounter Additional Health Concerns Assessment Noted Time PHQ-9 Depression Total Score: 0 07/24/19 23 3:00 PM EST documented as of this encounter Care Teams Lpn Cma Relationship Specialty Start Date End Date Trevor Rolon DO [address] [facility] [address] [place] [address] PCP - General Lucy Christopher DO [address]ld[address] [place] [id number] Consulting Physician Oncology 10/17/24 documented as of this encounter
--- OUTSIDE RECORDS SUMMARY | 2025-04-11 14:03 | XMS_ITS | Encounter Summary ---
Author Organization [facility] nter Address [address] [place] [address] Care Team Providers Care Radio Presenter Name Role Phone Trevor Rolon DO Primary Care Provider Lucy Christopher DO Unavailable Encounter Details Date Type Department Care Team (Late st Contact Info) Description 12/10/2022 Orders Only [facility] NEUROLOGY PRACTICE [address], 8th Floor Clinic [place] [phone] Lupe Villalta, MOBILE MARKETING SPECIALIST [address] [facility] [address] Social History Tobacco Use Types [...] How often do you attend chur or sikhism services? More than 4 times per year 07/24/2022 Do you belong to any clubs o r organizations such as episcopal groups, unions, fraternal or athletic groups, or [...] Recorded Patient Health Questionnaire-2 Score 0 07/24/2022 [facility] - Occupational Stress Questionnaire Answer [...] ULTRASOUND [address], 2nd Floor [place] [address] 05/07/2025 3:00 PM EDT Appointment [facility] MAMMOGRAPHY SERVICES BLDG D [address], [place] [address] 06/18/2025 10:30 AM EST Office Visit [facility] GASTROENTEROLOGY PRACTICE [address], 2nd [place] [address] 06/27/2025 10:00 AM EST Office Visit [facility] SLEEP LAB PRACTICE [address], Tommy [place] [facility] [place] [address] Marcelina Hyde NP [address] [place] [address] 08/16/2025 10:00 AM EST Office Visit [facility] ENDOCRINOLOGY PRACTICE [address], 8th [place] [address] Brigitte Mahoney NP [address] [facility] [place] [address] 09/18/2025 1:30 PM EDT Office Visit [facility] RHEUMATOLOGY PRACTICE [address], 8th Floor [place] [address] Suman Treviño MD [address] [facility]. [place] [facility] [address] 12/13/2025 11:00 AM EDT Office Visit [facility] OBGYN PRACTICE [address], 7th Floor [place] [address] Janice Woodward NP [address] [place] [address] documented as of this encounter Visit Diagnoses Not on filedocumented in this encounter Additional Health Concerns Assessment Noted Time PHQ-9 Depression Total Score: 0 07/24/19 23 3:00 PM EST documented as of this encounter Care Teams Radio Presenter Relationship Specialty Start Date End Date Trevor Rolon DO [address] [facility] [address] [place] [address] PCP - General Lucy Christopher DO [facility] [place] [address] Consulting Physician Oncology 10/17/24 documented as of this encounter
--- OUTSIDE RECORDS SUMMARY | 2025-04-11 14:03 | XMS_ITS | Encounter Summary ---
Author Organization [facility] nter Address [address] [place] [address] Care Team Providers Care Beach Patrol Lieutenant Name Role Phone Trevor Rolon DO Primary Care Provider Lucy Christopher DO Unavailable Encounter Details Date Type Department Care Team (Late st Contact Info) Description 09/01/2024 Orders Only [facility] ENDOCRINOLOG[facility] PRACTICE [address], 8th Floor Clinic [place] [phone] Brigitte Mahoney, CLAU [address] [place] [address] Social History Tobacco Use Types [...] Recorded Patient Health Questionnaire-2 Score 0 09/28/2023 [facility] of Occupat ional Health - Occupational [...] ULTRASOUND [address], 2nd Floor May [facility] [address] 05/07/2025 3:00 PM EDT Appointment [facility] MAMMOGRAPHY SERVICES FARRUKH D [address] [place] [address] 06/18/2025 10:30 AM EST Office Visit [facility] GASTROENTEROLOGY PRACTICE [address], 2nd [place] [address] 06/27/2025 10:00 AM EST Office Visit [facility] SLEEP LAB PRACTICE [address] [place] [address] Marcelina Hyde NP [address] [...] Suman Treviño MD [address] [place]. [place] [address] 12/13/2025 11:00 AM EDT [...] documented as of this encounter Care Teams Beach Patrol Lieutenant Relationship Specialty Start Date End Date Trevor Rolon DO [address] [facility] [address] [place] [address] PCP - General Lucy Christopher DO [address] Bld[address] A [place] [phone] Consulting Physician Oncology 10/17/24 documented as of this encounter
--- OUTSIDE RECORDS SUMMARY | 2025-04-11 14:04 | XMS_ITS | Encounter Summary ---
Author Organization [facility] nter Address [address] [place] [address] Care Team Providers Care Shaft Repairer Name Role Phone Trevor Rolon DO Primary Care Provider Lucy Christopher DO Unavailable Encounter Details Date Type Department Care Team (Latest Contact Info) Description 02/12/2025 Travel Social History Tobacco Use Types Packs/Day [...] often do you attend chur ch or moravian services? More than 4 times [...] Recorded Patient Health Questionnaire-2 Score 0 09/28/2023 [facility] of Occupat ional Health - [...] PMC ULTRASOUND [address], 2nd [place] [address] 05/07/2025 3:00 PM EDT Appointment [facility] MAMMOGRAPHY SERVICES [facility] D [address] [facility] [place] [address] 06/18/2025 10:30 AM EST Office Visit [facility] GASTROENTEROLOGY PRACTICE [address], 2nd [place] [address] 06/27/2025 10:00 AM EST Office Visit [facility] SLEEP LAB PRACTICE [address] [place] [address] Marcelina Hyde NP [address] [facility] [place] [address] 08/16/2025 10:00 AM EST Office Visit [facility] ENDOCRINOLOG[facility] PRACTICE [address], 8th Floor [facility] [place] [address] Brigitte Mahoney NP [address]ld[address] [place] [address] 09/18/2025 1:30 PM EDT Office Visit [facility] RHEUMATOLOGY PRACTICE [address], 8th Floor [facility] [place] [address] Suman Treviño MD [address] [place] [place] [address] 12/13/2025 11:00 AM EDT Office Visit [facility] OBGYN PRACTICE [address], 7th [place] [address] Janice Woodward NP [address] [place] [address] documented as of this encounter Visit Diagnoses Not on filedocumented in this encounter Additional Health Concerns Assessment Noted Time PHQ-9 Depression Total Score: 0 07/24/19 23 3:00 PM EST documented as of this encounter Care Teams Shaft Repairer Relationship Specialty Start Date End Date Trevor Rolon DO [address] [facility] [address] [place] [address] PCP - General Lucy Christopher DO [address] [place] [address] Consulting Physician Oncology 10/17/24 documented as of this encounter
--- OUTSIDE RECORDS SUMMARY | 2025-04-11 14:04 | XMS_ITS | Encounter Summary ---
Author Organization [facility] Address [address] [place] [address] Care Team Providers Care Quality Compliance Coordinator Name Role Phone Trevor Rolon DO Primary Care Provider [phone] Mc Grant DO Unavailable [phone] El Agarwal SECOND RIGGER Unavailable [phone] Encounter Details Date Type Department Care Team (Late Contact Info) Description 08/16/2024 Orders Only External Location [address] [place] [address] Provider, External Social History Tobacco Use Types [...] Description 05/14/2025 2:00 PM EST Appointment [facility] MRI [address] [address] 05/18/2025 9:15 AM EST Clinical Support [facility] [address] [place] [place] [address] 05/18/2025 9:30 AM EST Clinical Support [facility] [address] [place] [address] CH - CLINICAL NUTRITION [address] [place], [place] [phone] 05/18/2025 10:50 AM EST Office Visit [facility] [address] [place] [address] Nj Johns MD [address] [facility] [address] [place] [address] 05/18/2025 11:30 AM EST Social Work [facility] [address] [place] [address] Thuy Dasilva, [place] [address] 05/18/2025 1:00 PM EST Appointment [facility] Radiology [address] [place] [address] 05/18/2025 1:30 PM EST Appointment [facility] Radiology [address], 1st [place] [address] 05/18/2025 1:30 PM EST Appointment [facility] [address], 1st [place] [address] 05/18/2025 2:00 PM EST Pharmacist Visit [facility] [address] [place] [address] 05/22/2025 11:15 AM EST Consult [facility] [address], 1st [place] [address] Nigel Recinos MD [address] [address] 05/25/2025 11:30 AM EST Appointment [facility] Radiology [address] [place] [address] 05/25/2025 2:00 PM EST Appointment [facility] Pulmonary Function Testing [address] [place] [address] 05/25/2025 3:30 PM EST Appointment Cardiac Imaging [address] [place] [address] 05/31/2025 4:30 PM EST Appointment [facility] [address] [place] [address] 06/20/2025 10:30 AM EST Procedure Visit [place] [facility] [address], 1st [place] [address] Claire Davidson MD [address] [address] 06/21/2025 2:00 PM EST Office Visit [facility] [address] [facility], [address] [place] [address] Claire Davidson MD [address] [address] documented as of this encounter Procedures Procedure Name Priority Date/Time Associated Diagnosis Comments XR MSK OUTSIDE IMAGES 08/16/2024 1:21 PM EST documented in this encounter Results * XR MSK OUTSIDE IMAGES (08/16/2024 1:21 PM EST) Anatomical Region Laterality Modality Radiographic Zayda ging 08/16/2024 1:21 PM EST us External Provider IMG XR PROCEDURES Final Result documented in this encounter Visit Diagnoses Not on filedocumented in this encounter Additional Health Concerns Assessment Noted Time PHQ-9 Depression Total Score: 024 7:48 AM EDT A fall risk assessment has been complete d for the patient 02/22/2024 7:47 AM EDT A Body Mass Index follow-up plan has been documented for the patient 02/22/2024 9:24 AM EDT documented as of this encounter Care Teams Quality Compliance Coordinator Relationship Specialty Start Date End Date Trevor Rolon DO [address] [facility] [address] [place] [address] PCP - General 11/22/20 Mc Grant DO [address] [facility] 201 [place] [address] Referring Physician Gastroenterology 02/21/24 El Agarwal APRN [address] [place] [address] Referring Physician Gastroenterology 03/21/25 documented as of this encounter
--- OUTSIDE RECORDS SUMMARY | 2025-04-11 14:04 | XMS_ITS | Encounter Summary ---
Author Organization [facility] Address [address] [place] [address] Care Team Providers Care Potato Chip Processing Supervisor Name Role Phone Trevor Rolon DO Primary Care Provider Mc Grant DO Unavailable [phone] El Agarwal WEIGH AND CHARGE WORKER Unavailable [phone] Encounter Details Date Type Department Care Team (Late Contact Info) Description 09/08/2024 Orders Only External Location [address] [place] [address] Provider, External Social History Tobacco Use Types [...] Description 05/14/2025 2:00 PM EST Appointment [facility] MRI [address] [place] [address] 05/18/2025 9:15 AM EST Clinical Support [facility] [address] [place] [place] [address] 05/18/2025 9:30 AM EST Clinical Support [facility] [address] [place] [address] CH - CLINICAL NUTRITION [address] [place], [place] [phone] 05/18/2025 10:50 AM EST Office Visit [facility] [address] [place] [address] Nj Johns MD [address] [facility] [address] [place] [address] 05/18/2025 11:30 AM EST Social Work [facility] [address] [place] [address] Thuy Dasilva, [place] [address] 05/18/2025 1:00 PM EST Appointment [facility] Radiology [address] [place] [address] 05/18/2025 1:30 PM EST Appointment [facility] Radiology [address], 1st [place] [address] 05/18/2025 1:30 PM EST Appointment [facility] Radiology [address], 1st [place] [address] 05/18/2025 2:00 PM EST Pharmacist Visit [facility] [address] [place] [address] 05/22/2025 11:15 AM EST Consult [facility] [address], 1st [place] [address] Nigel Recinos MD [address] [address] 05/25/2025 11:30 AM EST Appointment [facility] Radiology [address] [place] [address] 05/25/2025 2:00 PM EST Appointment [facility] Pulmonary Function Testing [address] [place] [address] 05/25/2025 3:30 PM EST Appointment Cardiac Imaging [address] [place] [address] 05/31/2025 4:30 PM EST Appointment [facility] [address] [place] [address] 06/20/2025 10:30 AM EST Procedure Visit [place] [facility] [address], 1st [place] [address] Claire Davidson MD [address] [address] 06/21/2025 2:00 PM EST Office Visit [facility] [place] [address] [facility], [address] [place] [address] Clarie Davidson MD [address] [address] documented as of this encounter Procedures Procedure Name Priority Date/Time Associated Diagnosis Comments XR MSK OUTSIDE IMAGES 09/08/2024 6:16 PM EST documented in this encounter Results * XR MSK OUTSIDE IMAGES (09/08/2024 6:16 PM EST) Anatomical Region Laterality Modality Radiographic Zayda ging 09/08/2024 6:16 PM EST us External Provider IMG XR [...] documented as of this encounter Care Teams Potato Chip Processing Supervisor Relationship Specialty Start Date End Date Trevor Rolon DO [address] [facility] 201 [place] [address] PCP - General 11/22/20 Mc Grant DO [address] [facility] 201 [place] [address] Referring Physician Gastroenterology 02/21/24 El Agarwal APRN [address] [place] [address] Referring Physician Gastroenterology 03/21/25 documented as of this encounter
--- OUTSIDE RECORDS SUMMARY | 2025-04-11 14:04 | XMS_ITS | Clinical Summary ---
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 023 Active hydrOXYzine HCl (Atarax) 25 MG tablet Take 1 tablet (25 mg) by mouth if needed in the morning, at noon, and at bedtime for itching. Active FeroSul 325 (65 Fe) MG tablet Take 1 tablet (325 mg) by mouth in the morning. 023 Active Lifitegrast (Xiidra) 5 % solutionIndicatio ns:Keratoconjunct ivitis sicca of both eyes not specified as Sjogren's INSTILL 1 DROP IN EACH EYE TWO TIMES A DAY 180 each 4 024 Active Diclofenac Sodium (Voltaren) 1 % gel Apply to affected area BID PRN 100 g 2 024 Active lisinopril 2.5 MG tablet Take 1 tablet (2.5 mg) by mouth in the morning. 024 Active desvenlafaxine (Pristiq) 50 MG 24 hr tablet Take 1 tablet (50 mg) by mouth at bedtime. Do not crush, chew, or split. Active Continuous Glucose Sensor (Dexcom G7 Sensor) miscIndications:T ype 2 diabetes mellitus with hyperglycemia, with long-term current use of insulin 1 each q10 days. Use every 10 days 3 each 025 2025 Active empagliflozin (Jardiance) 25 MG Take 1 tablet (25 mg) by mouth in the morning. 30 tablet Active Semaglutide, 1 MG/DOSE, (Ozempic, 1 MG/DOSE,) 4 MG/3ML solution pen-injector Inject 1 mg under the skin 1 (one) time per week. Take 1 mg each week 3 mL Active Insulin Pen Needle (Pen [place]) 32G X 4 MM miscIndications:T ype 2 diabetes mellitus with hyperglycemia, with long-term current use of insulin Use 4 per day 100 each 3 025 Active glucose blood (OneTouch Verio) test stripIndications: E11.65 Use 3 per day. Code E11.65 100 each 11 04/10/2 025 Active ondansetron ODT (Zofran-ODT) 8 MG disintegrating tablet Take 4 mg by mouth every 8 (eight) hours if needed. Active promethazine (Phenergan) 25 MG tablet if needed. Active Zinc 50 MG tablet Take 1 tablet (50 mg) by mouth in the morning. 30 tablet 2 Active Copper Gluconate 2 MG tablet Take 2 mg by mouth in the morning. 30 tablet 2 025 Active metoprolol succinate XL (Toprol-XL) 50 MG 24 hr tablet Take 1 tablet (50 mg) by mouth in the morning. Do not crush or chew. Active pregabalin (Lyrica) 25 MG capsuleIndication s: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,Restless leg syndrome Take 1 capsule (25 mg) by mouth in the morning and at bedtime. 60 capsule 2 025 2024 Active Rimegepant Sulfate (Nurtec) 75 MG tablet dispersibleIndica tions:Migraine Take 1 tab PO at the onset of a migraine. Do not exceed more than 1 tab in 24 hours. 8 tablet 5 025 Active insulin aspart (NovoLOG FLEXPEN) 100 UNIT/ML penIndications:Ty pe 2 diabetes mellitus with hyperglycemia, with long-term current use of insulin Take 5 units at breakfast, lunch, and supper if premeal BS >150. Max daily dose 50 units 15 mL 3 025 Active Lantus SoloStar 100 UNIT/ML penIndications:Ty pe 2 diabetes mellitus with hyperglycemia, with long-term current use of insulin Inject 15 Units under the skin in the morning. Titrate to target glucose. Max daily dose 50 units. 15 mL 3 025 Active busPIRone (Buspar) 10 MG tablet Take 1 tablet (10 mg) by mouth in the morning and at bedtime. Active prednisoLONE acetate (Pred-Forte) 1 % ophthalmic suspension Administer 2 drops into the right eye. Active moxifloxacin (Vigamox) 0.5 % ophthalmic solution Administer 1 drop into the right eye in the morning, at noon, and at bedtime. 025 Active oxyCODONE (Roxicodone) 5 MG immediate release tablet Take 1 tablet (5 mg) by mouth every 6 (six) hours if needed. Active cyclobenzaprine (Flexeril) 10 MG tablet Take 1 tablet (10 mg) by mouth if needed in the morning and at bedtime. Active pantoprazole (ProtoNix) 40 MG EC tabletIndications :Gastroesophageal reflux disease, unspecified whether esophagitis present Take 1 tablet (40 mg) by mouth in the morning. Do not crush, chew, or split. 30 tablet 2 025 2024 Active rifAXIMin (Xifaxan) 550 MG tabletIndications :Encephalopathy, hepatic Take 1 tablet (550 mg) by mouth in the morning and at bedtime. 60 tablet 2 Active spironolactone (Aldactone) 100 MG tabletIndications :Cirrhosis of liver without ascites, unspecified hepatic cirrhosis type Take 2 tablets (200 mg) by mouth in the morning. 60 tablet 2 025 2024 Active lactulose (Chronulac) 10 GM/15ML solutionIndicatio ns:Hepatic encephalopathy Take 15 mL (10 g) by mouth in the morning and at bedtime. 1200 mL 3 025 2025 Active busPIRone (Buspar) 7.5 MG tablet Take 1 tablet (7.5 mg) by mouth in the morning and at bedtime. Active valACYclovir (Valtrex) 500 MG tabletIndications :Acute vaginitis Take 1 tablet (500 mg) by mouth in the morning. 30 tablet 5 025 2025 Active lansoprazole (Prevacid) [address] capsule Take 1 capsule (30 mg) by mouth before breakfast. Do not crush or chew. 2024 Discontinued(I neffective) spironolactone (Aldactone) 100 MG tablet Take 1 tablet (100 mg) by mouth in the morning. 2024 Discontinued(R eorder) LACTULOSE PO Take by mouth in the morning. 2024 Discontinued lidocaine (Lidoderm) 5 % patch Apply 1 patch topically if needed each day for mild pain (1-4) or moderate pain (5-7). 023 2024 Discontinued Xifaxan 550 MG tabletIndications :Encephalopathy, hepatic TAKE 1 Tablet BY MOUTH EVERY MORNING AND AT BEDTIME 60 tablet 2 024 2024 Discontinued(R eorder) busPIRone (Buspar) 7.5 MG tablet take 1 tablet by mouth two times a day as needed for anxiety 2024 Discontinued valACYclovir (Valtrex) 1 g tabletIndications :Acute vaginitis Take 1 tablet (1,000 mg) by mouth in the morning and at bedtime for 10 days. 20 tablet 025 2024 Active Problems Problem Noted Date Diagnosed Date Congestive heart failure 03/20/2025 Obstructive sleep apnea (adult) (pediatric) 01/09 Anxiety 01/09/2025 Depression 01/09/2025 Essential hypertension 11/27/2024 Type 2 diabetes mellitus with diabetic polyneuro tammi 11/27/2024 Paroxysmal atrial fibrillation 11/13/2024 Iron (Fe) deficiency anemia 05/18/2024 Type 2 diabetes mellitus wit h hyperglycemia, [...] patient today Analysis of data: Dexcom Clarity trudy sky Date of : 1970 Generated at: [...] for 6 months Dexcom showing: Dexcom Clarity trudygarth sky Date of : 1970 Generated at: November 19, 2023 10:11 AM EDT Reporting period: [facility] Nov 06, 2023 - WedNovember 19, 2023 Glucose Details Average glucose: 133 mg/dL Standard deviation: 34 mg/dL GMI: 6.5% Time in Range Very High: <1% High: 9% In Range: 90% Low: <1% Very Low: 0% Target Range 70-180 mg/dL CGM Details Sensor usage: 93% Days with CGM data: Dexcom Clarity trudy asya Date of : 1970 Generated at: November [...] in 3 months Dexcom showing: Dexcom Clarity trudy sky Date of : 1970 Generated at: [...] for 3 months. Dexcom showing: Dexcom Clarity trudy sky Date of : 1970 Generated at: Mar [...] ozempic .25mg each week. Sample given Lot# [id number] Exp Date 04/2024 # given 1 Sample [...] up appointment is scheduled in 3 months FormaFina showing: Dexcom Clarity trudy asya Date of : 1970 Generated at: Dec [...] for 3 months Dexcom showing: Dexcom Clarity trudy sky Date of : 1970 Generated at: [...] disturbances have subsided since establishing care with [facility]. Patient does state she [...] and severity improved since establishing care with [facility]. Good compliance with Xifaxin. [...] Patient is back with regular visits with [facility] and is doing better [...] experienced similar symptoms and her GI in [place] started her on Xifaxan, which reportedly resolved the symptoms, despite a recurrence in October 2021. Her symptoms today have since significantly resolved, per patient. She states she has had no lapses in taking her medication during these periods, although today she is out of the medication and her GI in [place] has discharged her from the practice due to no-show visits. Dr. Rolon in [place] was called to see if he will Rx the medication. Referral to [facility] was made. Patient also [...] to consider migraine or other, referral with [facility]mology isn't until 2022. Follow up [...] Encounters Date Type Department Care Team Description 04/06/2025 Abstract [facility] GASTROENTEROLOGY [facility]ACT[facility] [address] [place] [address] El Agarwal NP 03/28/2025 8:00 AM EDT Office Visit [facility] SLEEP LAB PRACTICE [address], [place] [address] Marcelina Hyde NP LEROY (obstructive sleep apnea) (Primary Dx); Snoring; Excessive daytime sleepiness; Witnessed apneic spells; Gasping for breath; Non-restorative sleep; Persistent disorder of initiating or maintaining sleep; Restless leg syndrome 03/28/2025 Results Follow-Up [facility] OBSTETRICS/GYNECOLOGY UNIT [address], [address] [place] [address] Janice Woodward NP Vaginitis Panel, C. trachomatis / N. gonorrhoeae, DNA probe, HIV Ag/Ab with Reflex, Additional followed-up results: 2 03/27/2025 11:00 AM EDT Office Visit [facility] ORTHOPEDIC PODIATRY PRACTICE [address], [address] [place] [address] Alexandr Zarate, DPM Diabetic polyneuropathy associated with type 2 diabetes mellitus; Achilles tendinitis of left lower extremity; Bilateral calcaneal spurs; Pain in both feet 03/27/2025 10:30 AM EDT Office Visit [facility] OBGYN PRACTICE [address] [place] [address] Janice Woodward NP Acute vaginitis (Primary Dx) 03/27/2025 Travel 03/26/2025 Telephone [facility] [address] [place] [address] Janice Woodward NP vaginal swab 03/21/2025 Telephone [facility] GASTROENTEROLOGY [facility]ACT[facility] [address], [address] [place] [address] El Agarwal NP 03/20/2025 Results Follow-Up [facility] GASTROENTEROLOGY [facility] [address], [address] [place] [address] El Agarwal, CLAU CBC, Basic metabolic panel, Hepatic function panel, Additional followed-up results: 3 03/20/2025 Orders Only [facility]OENTEROLOGY [facility] [address], [address] [place] [address] El Agarwal, CLAU Hepatic cirrhosis, unspecified hepatic cirrhosis type, unspecified whether ascites present (Primary Dx) 03/19/2025 1:15 PM EDT Office Visit [facility] GASTROENTEROLOGY [facility]ACT[facility] [address] [place] [address] El Agarwla, CLAU Cirrhosis of liver without ascites, unspecified hepatic cirrhosis type (Primary Dx); Hepatic encephalopathy; Gastroesophageal reflux disease, unspecified whether esophagitis present; Encephalopathy, hepatic; GAVE (gastric antral vascular ectasia) 03/19/2025 Travel 02/27/2025 4:50 PM EDT - 02/27/2025 11:59 PM EDT Hospital Encounter [facility] DIAGNOSTIC CENTER - GENERAL DIAGNOSTIC BLDG D [address], [place] [address] Cirrhosis Discharge Disposition: Home or Self Care 02/27/2025 1:00 PM EDT Office Visit [facility] ORTHOPEDIC PODIATRY PRACTICE [address], [address] [place] [address] Alexandr Zarate DPM Diabetic polyneuropathy associated with type 2 diabetes mellitus (Primary Dx) 02/27/2025 Orders Only [facility] ENDOCRINOLOGY PRACTICE [address], [address] [place] [address] Lesly Agarwal Type 2 diabetes mellitus with hyperglycemia, with long-term current use of insulin 02/27/2025 Orders Only [facility] ORTHOPEDIC PODIATRY PRACTICE [address] [place] [address] Marion Chaney, CORWIN Diabetic polyneuropathy associated with type 2 diabetes mellitus 02/26/2025 12:50 PM EDT - 02/26/2025 11:59 PM EDT Hospital Encounter [facility] DIAGNOSTIC CENTER - GENERAL DIAGNOSTIC BLDG D [address], [address] [facility] [place] [address] Type 2 diabetes mellitus with hyperglycemia, with long-term current use of insulin; Other fatigue; Hyperlipidemia Discharge Disposition: Home or Self Care 02/26/2025 Travel 02/26/2025 Orders Only [facility] ENDOCRINOLOGY PRACT[facility] [address], [address] [place] [address] Lesly Agarwal Type 2 diabetes mellitus with hyperglycemia, with long-term current use of insulin 02/23/2025 Telephone [facility] ENDOCRINOLOGY [facility]ACT[facility] [address] [place] [address] Brigitte Mahoney NP 02/22/2025 3:20 AM EDT - 02/22/2025 6:50 AM EDT Emergency [facility] EMERGENCY DEPARTMENT [address], [address] [place] [address] Raheel Christopher, Leg cramping (Primary Dx) Discharge Disposition: Left Against Medical Advice 02/22/2025 Travel 02/20/2025 11:40 AM EDT - 02/20/2025 11:59 PM EDT Hospital Encounter [facility] [address], [address] [place] [address] Postlaminectomy syndrome, not elsewhere classified Discharge Disposition: Home or Self Care 02/20/2025 Travel 02/16/2025 Telephone [facility] NEUROLOGY PRACTICE [address] [place] [address] Francisca Wolf 02/12/2025 2:30 PM EDT - 02/12/2025 2:31 PM EDT Hospital Encounter [facility] DIAGNOSTIC CENTER - GENERAL DIAGNOSTIC BLDG D [address], [place] [address] Radiculopathy, lumbar region; Spondylosis without myelopathy or radiculopathy, thoracic region Discharge Disposition: Home or Self Care 02/12/2025 Travel 01/26/2025 Telephone [facility] NEUROLOGY PRACTICE [address], [address] [place] [address] Cristy Wolfthia 01/24/2025 1:00 PM EDT Office Visit [facility] SLEEP LAB PRACTICE [address], [place] [address] Demario Silva DO LEROY (obstructive sleep apnea) (Primary Dx); Snoring; Excessive daytime sleepiness; Witnessed apneic spells; Gasping for breath; Non-restorative sleep; Persistent disorder of initiating or maintaining sleep; Restless leg syndrome 01/24/2025 Travel 01/22/2025 2:00 PM EDT Office Visit [facility] RHEUMATOLOGY PRACTICE [address], [address] [place] [address] Suman Treviño MD Psoriatic arthritis (Primary Dx); Psoriasis 01/22/2025 12:00 PM EDT Office Visit [facility] NEUROLOGY PRACTICE [address], [address] [place] [address] Ben Knox MD Mild cognitive impairment (Primary Dx); Acephalgic migraine; 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; Restless leg syndrome; Cervical disc disorder 01/22/2025 Travel 01/17/2025 Travel from Last 3 Months Family History [...] Recorded Patient Health Questionnaire-2 Score 0 09/28/2023 [facility] - Occupational [...] Pulse 84 03/28/2025 8:00 AM EDT Temperature 37.1 C (98.7 F) 02/22/2025 6:42 AM EDT Respiratory Rate 16 02/22/2025 6:42 AM EDT Oxygen Saturation 100% 03/28/2025 8:00 AM EDT Inhaled Oxygen Concentration - - Weight 79.8 kg (176 lb) 03/28/2025 8:00 AM EDT Height 170.2 cm (5' 7 ) 03/28/2025 8:00 AM EDT Body Mass Index 27.57 03/28/2025 8:00 AM EDT Plan of Treatment Upcoming Encounters Date Type Department Care Team (Late st Contact Info) Description 04/30/2025 9:00 AM EDT Appointment [facility] ULTRASOUND [address], [address] [place] [address] 05/07/2025 3:00 PM EDT Appointment [facility] MAMMOGRAPHY SERVICES BL [address], [place] [address] 06/18/2025 10:30 AM EST Office Visit [facility] GASTROENTEROLOGY PRACTICE [address], [address] [place] [address] 06/27/2025 10:00 AM EST Office Visit [facility] SLEEP LAB PRACTICE [address], [place] [address] NovemberMarcelina NP [address] [facility] [place] [address] 08/16/2025 10:00 AM EST Office Visit [facility] ENDOCRINOLOGY PRACTICE [address], [address] Floor [facility] [place] [address] Brigitte Mahoney NP [address] [place] [address] 09/18/2025 1:30 PM EDT Office Visit [facility] RHEUMATOLOGY PRACTICE [address], [address] Floor [facility] [place] [address] Suman Treviño MD [address] [place] [address] 12/13/2025 11:00 AM EDT Office Visit [facility] OBGYN PRACTICE [address], [address] [place] [address] Janice Woodward NP [address] [place] [address] Health Maintenance Due Date Last Done Comments CT Colonography 1969 ColoGuard Screening 1969 FIT-DNA 1970 FIT 1970 FOBT 1970 Sigmoidoscopy 1970 MMR Vaccines (1 of 1 - Standard series) 1970 DTaP/Tdap/Td Vaccines (1 - Tdap) 1988 Pneumococcal Vaccine (1 of 2 - PCV) 1988 Mammogram 02/14/2025 02/15/2024, 04/16/2015 Influenza Vaccine (#1) 2025 04/08/2023, 2021 Diabetes: Retinopathy Screening 04/02/2025 04/02/2023, 04/02/2023, 04/02/2023, Additional history exists Diabetes: Hemoglobin A1C 05/29/2025 025, 06/01/2024, 03/16/2023, Additional history exists Colonoscopy 07/31/2032 07/31/2022, 12/0 02/2020, 06/18/2020 Colorectal Cancer Screening 07/31/2032 RSV under 20 month Aged Out No longer eligible based on patient's age to complete this topic Procedures Procedure Name Priority Date/Time Associated Diagnosis Comments C. TRACHOMATIS / N. GONORRHOEAE, DNA PROBE Routine 03/27/2025 12:42 PM EDT Acute vaginitis VAGINITIS PANEL (PERFORMED AT [facility]) Routine 03/27/2025 12:42 PM EDT Acute vaginitis HERPES SIMPLEX VIRUS CULTURE Routine 03/27/2025 12:42 PM EDT Acute vaginitis C. TRACHOMATIS/N. GONORRHOEAE, DNA PROBE PANEL Routine 03/27/2025 12:42 PM EDT Acute vaginitis VAGINITIS PANEL Routine 03/27/2025 12:42 PM EDT Acute vaginitis HERPES SIMPLEX VIRUS (HSV) TYPES 1 AND 2-SPECIFIC ANTIBODIES Routine 03/27/2025 11:52 AM EDT Acute vaginitis RPR W/REFLEX (REFERENCE LAB) Routine 03/27/2025 11:52 AM EDT Acute vaginitis HIV AG/AB WITH REFLEX Routine 03/27/2025 11:52 AM EDT Acute vaginitis COMPREHENSIVE METABOLIC PANEL Routine 03/27/2025 11:52 AM EDT Hepatic cirrhosis, unspecified hepatic cirrhosis type, unspecified whether ascites present CBC Routine 03/27/2025 11:52 AM EDT Hepatic cirrhosis, unspecified hepatic cirrhosis type, unspecified whether ascites present HEPATITIS PANEL, ACUTE Routine 11:52 AM EDT Acute vaginitis AMMONIA Routine 03/19/2025 2:49 PM EDT Cirrhosis of liver without ascites, unspecified hepatic cirrhosis type AFP TUMOR MARKER Routine 03/19/2025 2:49 PM EDT Cirrhosis of liver without ascites, unspecified hepatic cirrhosis type PROTIME-INR Routine 03/19/2025 2:49 PM EDT Cirrhosis of liver without ascites, unspecified hepatic cirrhosis type HEPATIC FUNCTION PANEL Routine 2:49 PM EDT Cirrhosis of liver without ascites, unspecified hepatic cirrhosis type BASIC METABOLIC PANEL Routine 03/19/2025 2:49 PM EDT Cirrhosis of liver without ascites, unspecified hepatic cirrhosis type CBC Routine 03/19/2025 2:49 PM EDT Cirrhosis of liver without ascites, unspecified hepatic cirrhosis type PROTIME-INR Routine 02/27/2025 4:54 PM EDT Cirrhosis VITAMIN D, TOTAL Routine 02/26/2025 1:00 PM [...] current use of insulin Other fatigue Hyperlipidemia CBC WITH AUTO DIFFERENTIAL Routine 02/26/2025 1:00 PM EDT Type 2 diabetes mellitus with hyperglycemia, with long-term current use of insulin Other fatigue Hyperlipidemia MAGNESIUM STAT 02/22/2025 3:57 AM EDT BASIC METABOLIC PANEL STAT 02/22/2025 3:57 AM EDT CBC WITH AUTO DIFFERENTIAL STAT 02/22/2025 3:57 AM EDT MR LUMBAR SPINE W AND WO CONTRAST STAT 02/20/2025 2:07 PM EDT Postlaminectomy syndrome, not elsewhere classified POCT CREATININE - ENTER/EDIT Routine 02/20/2025 1:11 PM EDT XR THORACIC SPINE Routine 02/12/2025 2:5 7 PM EDT Radiculopathy, lumbar region Spondylosis without myelopathy or radiculopathy, thoracic region XR LUMBAR SPINE 2-3 VIEWS Routine 02/12/2025 2:57 PM EDT Radiculopathy, lumbar region Spondylosis without myelopathy or radiculopathy, thoracic region INTERPRETATION 3 (PTAU-217/AB42 RATIO REFLEX) Routine 01/22/2025 1:26 PM EDT Mild cognitive impairment PHOSPHORYLATED TAU 217/BETA AMYLOID 42 RATIO, PLASMA Routine 01/22/2025 1:26 PM EDT Mild cognitive impairment PHOSPHORYLATED TAU 217 (PTAU-217), PLASMA Routine 01/22/2025 1:26 PM EDT Mild cognitive impairment BI MAMMOGRAM SCREENING BILATERAL Routine 02/15/2024 9:38 AM EDT Encounter for screening mammogram for malignant neoplasm of breast COLONOSCOPY Routine 07/31/2022 7:53 AM EST Iron deficiency anemia, unspecified iron deficiency anemia type Other cirrhosis of liver from Last 3 Months or Most Recently Relevant to Health Maintenance Results * Vaginitis Panel (03/27/2025 12:42 PM EDT) Bacterial Vaginosis (BV) NEGATIVE NEGATIVE 03/27/2025 9:42 PM EDT [facility] Edelmira glab-krus NOT DETECTED NOT DETECTED 03/27/2025 9:42 PM EDT [facility] Edelmira group NOT DETECTED NOT DETECTED 03/27/2025 9:42 PM EDT [facility] Trichomoniasis (TV) NOT DETECTED NOT DETECTED 03/27/2025 9:42 PM EDT [facility] Vaginal Swab Vaginal structure / Unknown Non-blood Collection / Unknown 03/27/2025 12:42 PM EDT 03/27/2025 8:03 PM EDT [facility] - 03/27/2025 9:42 PM EDT A negative test result does not exclude the possiblility of infection because test results may be affected by improper specimen collection, technical error, specimen mixup, concurrent antibiotic therapy, or number of organisms in the specimen which may be below the sensitivity of the test. The Xpert Vaginitis Assay should not be used for the evaluation of suspected sexual abuse or for other medico-legal indications. Additional testing is recommended in any circumstance when false positive or false negative results could lead to adverse medical, social, or psychological consequences. Xpert Vaginits Assay performance has not been evaluated in patients less than 14 years of age. us Janice Woodward NP LAB MICROBIOLOGY - GENER AL ORDERABLES Final Result Performing Organization Address [facility]/ZIP Co de Phone Number [facility] [address] [place] [address], * C. trachomatis / N. gonorrhoeae, DNA probe (03/27/2025 12:42 PM EDT) Chlamydia, DNA Probe NOT DETECTED NOT DETECTED 03/27/2025 9:41 PM EDT [facility] N gonorrhoeae, DNA Probe NOT DETECTED NOT DETECTED 03/27/2025 9:41 PM EDT [facility] Comment: A negative test result does not exclude the possiblility of infection because test results may be affected by improper specimen collection, technical error, specimen mixup, concurrent antibiotic therapy, or number of organisms in the specimen which may be below the sensitivity of the test. The Xpert CT/NG Assay should not be used for the evaluation of suspected sexual abuse or for other medico-legal indications. Additional testing is recommended in any circumstance when false positive or false negative results could lead to adverse medical, social, or psychological consequences. Xpert CT/NG Assay performance has not been evaluated in patients less than 14 years of age. Swab Cervical swab / Unknown Non-blood Collection / Unknown 03/27/2025 12:42 PM EDT 03/27/2025 8:03 PM EDT us Janice Woodward NP LAB MICROBIOLOGY - GENER AL ORDERABLES Final Result Performing Organization Address [facility]/ZIP Co de Phone Number [facility] [address] [place] [address], * (ABNORMAL) Herpes simplex virus culture (03/27/2025 12:42 PM EDT) HSV Culture Positive(A ) 03/31/2025 2:07 PM EDT [facility] ([place]) Swab Cervical swab / Unknown Non-blood Collection / Unknown 03/27/2025 12:42 PM EDT 03/27/2025 8:03 PM EDT [facility] NICHOLAS) - 03/31/2025 2:07 PM EDT Performed at: - [address] [id number] Home Attendant: Raphael Edwards PhD, Phone: [phone] Janice Woodward NP LAB MICROBIOLOGY - [facility] AL ORDERABLES Final Result MANNY NICHOLAS) [address] [place] [address], * (ABNORMAL) Herpes Simplex Virus (HSV) Types 1 & 2 Specific Antibodies (03/27/2025 11:52 AM EDT) [facility] HSV 1 IgG, Type Spec Reactive( A) [...] 03/28/2025 8:07 AM EDT Performed at: - [address] [id number] Home Attendant: Raphael Edwards PhD, Phone: [phone] Janice Woodward NP LAB BLOOD ORDERABLES Fin al Result Performing Organization Address [facility]/ZIP Co de Phone Number [employer]) [address] [place] [address], * RPR W/Reflex (Reference Lab) (03/27/2025 11:52 AM EDT) RPR Non Reactive Non Reactive 03/28/2025 8:07 AM EDT [facility] ([place]) Blood Venous blood specimen / Unknown Venipuncture / Unknown 03/27/2025 11:52 AM EDT 03/27/2025 12:17 PM EDT [facility] ([place]) - 03/28/2025 8:07 AM EDT Performed at: - [address] [id number] Home Attendant: Raphael Edwards PhD, Phone: [phone] Janice Woodward NP LAB BLOOD ORDERABLES Fin al Result Performing Organization Address [facility] Co de Phone Number [employer]) [address] [place] [address], * HIV Ag/Ab with Reflex (03/27/2025 11:52 AM EDT) HIV Ag/Ab (4th Gen) Nonreactive Nonreactive 03/27/2025 1:02 PM EDT [facility] Blood Venous blood specimen / Unknown Venipuncture / Unknown 03/27/2025 11:52 AM EDT 03/27/2025 12:17 PM EDT Narrative [facility] - 03/27/2025 1:02 PM EDT Screening test only. us Janice Bindu Woodward [employer] LAB BLOOD ORDERABLES Fin al Result Performing Organization Address [facility] Co de Phone Number [facility] [address] [place] [address], * Hepatitis panel, acute (03/27/2025 11:52 AM EDT) [facility] Hepatitis B Surface Ag Nonreactive Nonreactive 03/27/2025 1:26 PM EDT [facility] Hep A IgM Nonreactive Nonreactive 03/27/2025 1:26 PM EDT [facility] Hep B Core IgM Nonreactive Nonreactive 03/27/2025 1:26 PM EDT [facility] Hepatitis C Ab Nonreactive Nonreactive 03/27/2025 1:26 PM EDT [facility] Blood Venous blood specimen / Unknown Venipuncture / Unknown 03/27/2025 11:52 AM EDT 03/27/2025 12:17 PM EDT [facility] Bindu Woodward [employer] LAB BLOOD ORDERABLES Fin al Result Performing Organization Address [facility] Co de Phone Number [facility] [address] [place] [address], * (ABNORMAL) CBC (03/27/2025 11:52 AM EDT) Only the most recent of2 resultswithin the time period is included. [facility] Auto WBC 8.8 3.8 - 11.0 10*3/uL 03/27/2025 12:21 PM EDT [facility] RBC 3.97 3.73 - 5.13 10*6/uL 03/27/2025 12:21 PM EDT [facility] Hemoglobin 13.1 11.2 - 15.3 g/dL 03/27/2025 12:21 PM EDT [facility] Hematocrit 39.1 32.6 - 44.6 % 03/27/2025 12:21 PM EDT [facility] MCV 98.6(H) 78.8 - 96.0 fL 03/27/2025 12:21 PM EDT [facility] MCH 33.0 26.2 - 33.0 pg 03/27/2025 12:21 PM EDT [facility] MCHC 33.5 32.7 - 35.1 g/dL 03/27/2025 12:21 PM [facility] RDW 14.5 12.1 - 16.1 % 03/27/2025 12:21 PM [facility] Platelets 88(L) 138 - 402 10*3/uL 03/27/2025 12:21 PM [facility] MPV 7.9 7.0 - 10.6 fL 03/27/2025 12:21 PM [facility] Blood Venous blood specimen / Unknown Venipuncture / Unknown 03/27/2025 11:52 AM EDT 03/27/2025 12:16 PM EDT us El Agarwal [employer] LAB BLOOD ORDERABLES Final Re sult [facility] [address] [place] [address], * (ABNORMAL) Comprehensive metabolic panel (03/27/2025 11:52 AM EDT) Only the most recent of2 resultswithin the time period is included. Sodium 137 134 - 143 mmol/L 03/27/2025 12:43 PM [facility] Potassium 4.2 3.2 - 4.6 mmol/L 03/27/2025 12:43 PM [facility] Chloride 103 99 - 108 mmol/L 03/27/2025 12:43 PM [facility] CO2 28 19 - 29 mmol/L 03/27/2025 12:43 PM [facility] Anion Gap 6 5 - 15 mmol/L 03/27/2025 12:43 PM [facility] BUN 19 7 - 20 mg/dL 03/27/2025 12:43 PM [facility] Creatinine 1.02 <=1.20 mg/dL 03/27/2025 12:43 PM [facility] BUN/Creatinine Ratio 18.63 10.00 - 20.00 ratio 03/27/2025 12:43 PM [facility] Glucose 117(H) 58 - 104 mg/dL 03/27/2025 12:43 PM [facility] Calcium 9.3 7.9 - 11.1 mg/dL 03/27/2025 12:43 PM [facility] AST 55(H) 10 - 28 U/L 03/27/2025 12:43 PM [facility] ALT (SGPT) 36 <=40 U/L 03/27/2025 12:43 PM [facility] Alkaline Phosphatase 213(H) 29 - 108 U/L 03/27/2025 12:43 PM [facility] Total Protein 6.2 5.9 - 7.9 g/dL 03/27/2025 12:43 PM [facility] Albumin 3.1(L) 3.5 - 5.1 g/dL 03/27/2025 12:43 PM [facility] Globulin, Total 3.1 2.4 - 4.8 g/dL 03/27/2025 12:43 PM [facility] A/G Ratio 1.0 0.6 - 1.6 03/27/2025 12:43 PM [facility] Total Bilirubin 1.9(H) 0.3 - 1.0 mg/dL 03/27/2025 12:43 PM [facility] eGFR (CKD-EPI) 62.1 >60.0 - 200.0 mL/min/1.7 3m*2 03/27/2025 12:43 PM [facility] Blood Venous blood specimen / Unknown Venipuncture / Unknown 03/27/2025 11:52 AM EDT 03/27/2025 12:17 PM EDT us El Agarwal NP LAB BLOOD ORDERABLES Final Re sult [facility] [address] [place] [address], [place] [phone] * AFP tumor marker (03/19/2025 2:49 PM EDT) [facility] AFP Tumor Marker 4.7 0.0 - 9.2 ng/mL 03/20/2025 4:06 AM EDT [facility] ([place]) Comment: [employer] Electrochemiluminescence Immunoassay (ECLIA) Values obtained with different assay methods or kits cannot be used interchangeably. Results cannot be interpreted as absolute evidence of the presence or absence of malignant disease. This test is not interpretable in females. Blood Venous blood specimen / Unknown Venipuncture / Unknown 03/19/2025 2:49 PM EDT 03/19/2025 3:06 PM EDT Narrative [facility] ([place]) - 03/20/2025 4:06 AM EDT Performed at: [address] [place] [id number] Home Attendant: Raphael Edwards PhD, Phone: [phone] us El Agarwal [employer] LAB BLOOD ORDERABLES Final Re sult MANNY NICHOLAS) [address] [place] [address], [place] [phone] * (ABNORMAL) Protime-INR (03/19/2025 2:49 PM EDT) Only the most recent of2 resultswithin the time period is included. [facility] Protime 14.3(H) 10.2 - 12.9 seconds 03/19/2025 3:27 PM EDT [facility] INR 1.27(H) 0.90 - 1.10 03/19/2025 3:27 PM EDT [facility] Comment: The INR should only be used in stable anticoagulated patients. Recommended therapeutic ranges: Condition INR Prevention or treatment of DVT 2.0-3.0 Acute CO Prevention of Stroke 2.0-3.0 Prevention of recurrent CO 2.5-3.5 Atrial fibrillation Prevention of systemic embolism 2.0-3.0 Cardiac valve replacement (mechanical valves) 2.5-3.5 Blood Venous blood specimen / Unknown Venipuncture / Unknown 03/19/2025 2:49 PM EDT 03/19/2025 3:07 PM EDT El Agarwal [employer] LAB BLOOD ORDERABLES Final Re sult Performing Organization Address [facility]/ZIP Co de Phone Number [facility] [address] [place] [address], * (ABNORMAL) Ammonia (03/19/2025 2:49 PM EDT) Ammonia 65(H) 11 - 32 umol/L 03/19/2025 3:37 PM EDT [facility] Blood Venous blood specimen / Unknown Venipuncture / Unknown 03/19/2025 2:49 PM EDT 03/19/2025 3:06 PM EDT El Agarwal [employer] LAB BLOOD ORDERABLES Final Re sult Performing Organization Address [facility] Co de Phone Number [facility] [address] [place] [address], [place] [phone] * (ABNORMAL) Hepatic function panel (03/19/2025 2:49 PM EDT) Total Bilirubin 2.0(H) 0.3 - 1.0 mg/dL 03/19/2025 3:35 PM EDT [facility] Bilirubin, Direct 0.6(H) 0.0 - 0.2 mg/dL 03/19/2025 3:35 PM EDT [facility] Alkaline Phosphatase 205(H) 29 - 108 U/L 03/19/2025 3:35 PM EDT [facility] AST 61(H) 10 - 28 U/L 03/19/2025 3:35 PM EDT [facility] ALT (SGPT) 40 <=40 U/L 03/19/2025 3:35 PM EDT [facility] Albumin 2.9(L) 3.5 - 5.1 g/dL 03/19/2025 3:35 PM EDT [facility] Total Protein 6.0 5.9 - 7.9 g/dL 03/19/2025 3:35 PM EDT [facility] Blood Venous blood specimen / Unknown Venipuncture / Unknown 03/19/2025 2:49 PM EDT 03/19/2025 3:06 PM EDT [facility] - 03/19/2025 3:35 PM EDT Results for ALT may be adversely affected when samples are collected on patients taking Sulfasalazine and/or Sulfapyridine. us El Agarwal [employer] LAB BLOOD ORDERABLES Final Re sult [facility] [address] [place] [address], * (ABNORMAL) Basic metabolic panel (03/19/2025 2:49 PM EDT) Only the most recent of2 resultswithin the time period is included. Glucose 116(H) 58 - 104 mg/dL 03/19/2025 3:35 PM [facility] Sodium 133(L) 134 - 143 mmol/L 03/19/2025 3:35 PM [facility] Potassium 4.2 3.2 - 4.6 mmol/L 03/19/2025 3:35 PM [facility] Chloride 101 99 - 108 mmol/L 03/19/2025 3:35 PM [facility] CO2 30(H) 19 - 29 mmol/L 03/19/2025 3:35 PM [facility] Anion Gap 2(L) 5 - 15 mmol/L 03/19/2025 3:35 PM [facility] BUN 19 7 - 20 mg/dL 03/19/2025 3:35 PM [facility] Creatinine 0.91 <=1.20 mg/dL 03/19/2025 3:35 PM [facility] BUN/Creatinine Ratio 20.88(H) 10.00 - 20.00 ratio 03/19/2025 3:35 PM EDT [facility] Calcium 8.6 7.9 - 11.1 mg/dL 03/19/2025 3:35 PM EDT [facility] eGFR (CKD-EPI) 71.3 >60.0 - 200.0 mL/min/1.7 3m*2 03/19/2025 3:35 PM EDT [facility] Blood Venous blood specimen / Unknown Venipuncture / Unknown 03/19/2025 2:49 PM EDT 03/19/2025 3:06 PM EDT us El Agarwal [employer] LAB BLOOD ORDERABLES Final Re sult [facility] [address] [place] [address], [place] [phone] * (ABNORMAL) CBC auto differential (02/26/2025 1:00 PM EDT) Only the most recent of2 resultswithin the time period is included. Auto WBC 4.9 3.8 - 11.0 10*3/uL 02/26/2025 2:40 PM [facility] RBC 3.89 3.73 - 5.13 10*6/uL 02/26/2025 2:40 PM [facility] Hemoglobin 13.0 11.2 - 15.3 g/dL 02/26/2025 2:40 PM [facility] Hematocrit 38.2 32.6 - 44.6 % 02/26/2025 2:40 PM [facility] MCV 98.3(H) 78.8 - 96.0 fL 02/26/2025 2:40 PM [facility] MCH 33.4(H) 26.2 - 33.0 pg 02/26/2025 2:40 PM [facility] MCHC 33.9 32.7 - 35.1 g/dL 02/26/2025 2:40 PM [facility] RDW 14.6 12.1 - 16.1 % 02/26/2025 2:40 PM EDT [facility] MPV 8.3 7.0 - 10.6 fL 02/26/2025 2:40 PM EDT [facility] Neutrophils % 67 47 - 79 % 02/26/2025 2:40 PM EDT [facility] Lymphocytes % 19 13 - 41 % 02/26/2025 2:40 PM EDT [facility] Monocytes % 9 3 - 11 % 02/26/2025 2:40 PM EDT [facility] Eosinophils % 4 0 - 6 % 02/26/2025 2:40 PM EDT [facility] Basophils % 0 0 - 2 % 02/26/2025 2:40 PM [facility] Neutrophils Absolute 3.30 1.90 - 7.50 10*3/uL 02/26/2025 2:40 PM EDT [facility] Lymphocytes Absolute 1.00 0.80 - 3.20 10*3/uL 02/26/2025 2:40 PM EDT [facility] Monocytes Absolute 0.40 0.10 - 0.90 10*3/uL 02/26/2025 2:40 PM EDT [facility] Eosinophils Absolute 0.20 0.00 - 0.40 10*3/uL 02/26/2025 2:40 PM [facility] Basophils Absolute 0.00 0.00 - 0.20 10*3/uL 02/26/2025 2:40 PM EDT [facility] Platelets 74(L) 138 - 402 10*3/uL 02/26/2025 2:40 PM EDT [facility] Blood Venous blood specimen / Unknown Venipuncture / Unknown 02/26/2025 1:00 PM EDT 02/26/2025 1:00 PM EDT us Trevor Rolon DO LAB BLOOD ORDERABLES Fi nal Result [facility] [address] [place] [address], * Vitamin D 25 hydroxy (02/26/2025 1:00 PM EDT) Pathologist [facility] Vitamin D, Total 67 30 - 100 ng/mL 02/26/2025 3:19 PM EDT [facility] Blood Venous blood specimen / Unknown Venipuncture / Unknown 02/26/2025 1:00 PM EDT 02/26/2025 1:00 PM EDT Trevor Rolon DO LAB BLOOD ORDERABLES Fi nal Result Performing Organization Address City/[facility]/ZIP Co de Phone Number [facility] [address] [place] [address], * Hemoglobin A1c (02/26/2025 1:00 PM EDT) [facility] Hemoglobin A1C 5.1 3.0 - 6.0 % 02/26/2025 3:25 PM EDT [facility] Comment: Additional Reference Ranges: 6.0 - 9.0% Controlled Diabetic >9.0 Poorly Controlled Diabetic *Hemoglobin A1c is an FDA approved test for monitoring long term care pharmacist glucose control in individuals with diabetes. It is not an approved screening test for diagnosing type 1 and type 2 diabetes. Results of Hemoglobin A1c are not reliable in patients with chronic blood loss, consequent variable erythrocyte lifespan, hemolytic diseases, , and significant blood loss. MEAN BLOOD GLUCOSE 99.67 mg/dl 02/26/2025 3:25 PM EDT [facility] Blood Venous blood specimen / Unknown Venipuncture / Unknown 02/26/2025 1:00 PM EDT 02/26/2025 1:00 PM EDT Trevor Rolon DO LAB BLOOD ORDERABLES Fi nal Result Performing Organization Address City/[facility]/ZIP Co de Phone Number [facility] [address] [place] [address], * Folate (02/26/2025 1:00 PM EDT) [facility] Folate 15.3 5.9 - 24.8 ng/mL 02/26/2025 3:23 PM EDT [facility] Blood Venous blood specimen / Unknown Venipuncture / Unknown 02/26/2025 1:00 PM EDT 02/26/2025 1:00 PM EDT Trevor Rolon DO LAB BLOOD ORDERABLES Fi nal Result Performing Organization Address City/[facility]/ZIP Co de Phone Number [facility] [address] [place] [address], [place] [phone] * (ABNORMAL) Vitamin B12 (02/26/2025 1:00 PM EDT) Pathologist [facility] Vitamin B-12 987.1(H) 180.0 - 914.0 pg/mL 02/26/2025 3:23 PM EDT [facility] Blood Venous blood specimen / Unknown Venipuncture / Unknown 02/26/2025 1:00 PM EDT 02/26/2025 1:00 PM EDT Trevorjennie Rolon LAB BLOOD ORDERABLES Fi nal Result Performing Organization Address City/[facility]/ZIP Co de Phone Number [facility] [address] [place] [address], [place] [phone] * (ABNORMAL) Lipid panel (02/26/2025 1:00 PM EDT) Pathologist [facility] Triglycerides 84 <=150 mg/dL 02/26/2025 3:05 PM EDT [facility] Cholesterol 185 102 - 200 mg/dL 02/26/2025 3:05 PM EDT [facility] HDL 52 30 - 71 mg/dL 02/26/2025 3:05 PM EDT [facility] Cholesterol/HDL Ratio 3.6 02/26/2025 3:05 PM EDT [facility] LDL-C (FRIEDEWALD) 116(H) <=100 mg/dL 02/26/2025 3:05 PM EDT [facility] Blood Venous blood specimen / Unknown Venipuncture / Unknown 02/26/2025 1:00 PM EDT 02/26/2025 1:00 PM EDT Trevor Rolon DO LAB BLOOD ORDERABLES Fi nal Result Performing Organization Address City/[facility]/ZIP Co de Phone Number [facility] [address] [place] [address], * Magnesium (02/22/2025 3:57 AM EDT) Magnesium 1.9 1.8 - 2.4 mg/dL 02/22/2025 4:34 AM EDT [facility] Blood Venous blood specimen / Unknown Venipuncture / Unknown 02/22/2025 3:57 AM EDT 02/22/2025 4:08 AM EDT Raheel Meri Ashwin DO LAB BLOOD ORDERABLES Fi nal Result Performing Organization Address City/[facility] Co de Phone Number [facility] [address] [place] [address], * MR lumbar spine w and wo [...] foraminal encroachment. Question laminectomy changes. Procedure Note oRme Felix - 02/20/2025 MR LUMBAR SPINE WITHOUT [...] Felix MD 02/20/2025 02:55 PM EDT RPWorkstation: [id number] Bharti Marks NP [facility] MRI PROCEDURES Final Result * POCT Creatinine - Enter/Edit (02/20/2025 1:11 PM EDT) POC Creatinine 0.67 0.6 - 1.3 mg/dL GFR >60 >=60 ml/min Blood 02/20/2025 1:11 PM EDT Narrative Debora Blankenship RN - 02/20/2025 1:11 PM EDT For additional details regarding the eGFR calculation, please consult [facility] policy C6910.5051. us Bharti Marks NP POINT OF CARE TEST ENTER /EDIT ORDERABLES Final Result * XR lumbar spine 2 [...] Short MD 02/13/2025 08:21 AM EDT RPWorkstation: [id number] us Louis Andrews MD [facility] XR PROCEDURES Final Result * XR thoracic spine (02/12/2025 2:57 PM EDT) Anatomical Region Laterality Modality Spine, T-spine Digital Radiogra phy 02/12/2025 2:57 PM EDT Impressions 02/13/2025 8:19 AM EDT No acute fracture of the thoracic spine. Electronically signed by: Colby hSort MD 02/13/2025 08:19 AM EDT RP Narrative 02/13/2025 8:19 AM EDT XR THORACIC [...] Short MD 02/13/2025 08:19 AM EDT RPWorkstation: [id number] Louis Andrews MD [facility] XR PROCEDURES Final Result * Interpretation 3 (pTau-217/AB42 Ratio Reflex) (01/22/2025 1:26 PM EDT) Interpretation Comment 01/27/2025 1:06 AM EDT [facility] ([place]) Comment: An intermediate pTau-217/Beta Amyloid 42 Ratio should be interpreted within the context of all clinical findings in symptomatic patients. Additional testing such as amyloid-positron emission tomography (PET) imaging or cerebrospinal fluid (CSF) biomarker assays is recommended to aid in the identification or exclusion of amyloid- related pathology, which is associated with Alzheimer's disease. Both pTau-217 and Beta Amyloid 42 are well documented indicators of pathological changes associated with Alzheimer's disease. Their ratio provides a higher level of sensitivity and specificity than their individual measurements alone. The performance of this test meets the criteria for a confirmatory test as defined by an international consortium of Alzheimer's experts (1). This test should not be used in asymptomatic individuals. (1) Bindu Zhang et al. Acceptable performance of blood biomarker tests of amyloid pathology-recommendations from the call or contact centre team leader Initiative on Alzheimer's Disease. Nature Reviews Neurology 20.7 (2023): 426-439. Blood Venous blood specimen / Unknown Venipuncture / Unknown 01/22/2025 1:26 PM EDT 01/22/2025 1:58 PM EDT Narrative [facility] ([place]) - 01/27/2025 1:06 AM EDT Performed at: 01 - [facility] [address] [place] [address] [id number] Home Attendant: Teri Cha MD, Phone: [phone] Mary Cobos [employer] LAB BLOOD ORDERABLES Final Result [facility] ([place]) [address] [place] [address], * Phosphorylated Tau 217/Beta Amyloid 42 Ratio, Plasma (01/22/2025 1:26 PM EDT) pTau-217/AB42 Ratio 0.0111 01/27/2025 1:06 AM EDT [facility] ([place]) Comment: Low <0.0086 Intermediate 0.0086 - 0.0152 High >0.0152 pTau-217 0.333 Not Estab. pg/mL 01/27/2025 1:06 AM EDT [facility] ([employer]) Comment:The quantitative ran ge of this assay is 0.060 to 10.000 pg/mL. Beta-amyloid 42 30.1 Not Estab. pg/mL 01/27/2025 1:06 AM EDT [facility] ([employer]) Comment:The quantitative ran ge of this assay is 1.0 to 230.0 pg/mL. Blood Venous blood specimen / Unknown Venipuncture / Unknown 01/22/2025 1:26 PM EDT 01/22/2025 1:58 PM EDT Narrative BY[facility] PETERSON) - 01/27/2025 1:06 AM EDT Test(s) [id number]; [id number]-Dwir-gyujhys 42 was developed and its performance characteristics determined by [facility]. It has not been cleared or approved by the Food and Drug Administration. Performed at: 01 - [facility] [address] [place] [id number] Home Attendant: Teri Cha MD, Phone: [phone] Mary Cobos NP LAB BLOOD ORDERABLES Final Result [facility] PETERSON) [address] [place] [address], * (ABNORMAL) Phosphorylated Tau 217 (pTau-217), Plasma (01/22/2025 1:26 PM EDT) p-dvv889 0.25(H) 0.00 - 0.18 pg/mL 01/27/2025 2:06 AM EDT [facility] ([place]) Comment: Clinical cutoff value was established using samples from a patient cohort characterized with amyloid PET data. A p-rbz390 value of >0.18 is a reported surrogate marker for beta amyloid pathology, and can be used to facilitate biological identification of Alzheimer's disease (1). p-ilu659 has also been used in clinical trials to monitor patients on anti-amyloid therapy (2,3). Test performed by [employer] chemiluminescent enzyme immunoassay (CLEIA). Values obtained with different methods cannot be used interchangeably. The validated limit of quantification is 0.06 pg/mL. Assay detection limit is 0.03 pg/mL. Footnotes Comment 01/27/2025 2:06 AM EDT [facility] ([place]) Comment: 1. Yohan Beltran, et al. Diagnostic Accuracy of a Plasma Phosphorylated Tau 217 Immunoassay for Alzheimer Disease Pathology. MARIA ELENA neurology (2023). 2. Yohan Beltran, et al. Differential roles of A42/40, p-rzm025 and p-wbk812 for Alzheimer's trial selection and disease monitoring. Nature medicine 28.12 (2021): 9844-1244. 3. Jatin WEST, Cass M, Kirby SC, et al. Association of Donanemab Treatment With Exploratory Plasma Biomarkers in Early Symptomatic Alzheimer Disease: A Secondary Analysis of the TRAILBLAZER-ALZ Randomized Clinical Trial . MARIA ELENA Neurol. 2021;79(12):1233-3952. Blood Venous blood specimen / Unknown Venipuncture / Unknown 01/22/2025 1:26 PM EDT 01/22/2025 1:58 PM EDT Narrative BYRON NICHOLAS) - 01/27/2025 2:06 AM EDT Test(s) [id number] was developed and its performance characteristics determined by [employer]. It has not been cleared or approved by the Food and Drug Administration. Performed at: 01 - [facility] [address] [place] [id number] Home Attendant: Teri Cha MD, Phone: [phone] Mary Cobos NP LAB BLOOD ORDERABLES Final Result Performing Organization Address City/State/[facility] Co de Phone Number BYRON PETERSON) [phone] [place] [address], * BI Screening mammogram bilateral w tomosynthesis [...] changes. Left breast benign coarse calcifications. Trevor Gradyrick Rolon [facility] [facility] Final Result * Colonoscopy (07/31/2022 7:53 AM EST) Anatomical Region Laterality Modality Endoscopy 07/31/2022 7:19 AM EST Impressions 07/31/2022 7:56 AM EST Impression: - Two 3 to 4 mm polyps in the ascending colon, removed with a cold biopsy forceps. Resected and retrieved. - Diverticulosis in the sigmoid colon. - Non-bleeding internal hemorrhoids. Narrative 07/31/2022 7:56 AM EST Patient Name: Trudy Sky Attending MD: Mc Grant DO Scope(s) [...] by the physician, the nurse and the route sales associate. The procedure was verified in the pre-procedure [...] the patient. Procedure Code(s): --- Professional --- 56231, Colonoscopy, flexible; with biopsy, single or multiple --- Technical --- 11356, Colonoscopy, flexible; with biopsy, single or multiple [...] or abscess without bleeding CPT copyright 2018 [employer]. All rights reserved. The codes documented in this report are preliminary and upon facilities assistant review may be revised to meet current compliance requirements. DO Mc Ceaj Jr., DO 07/31/2022 7:55:48 AM This report has been signed electronically. Number of Addenda: 0 Note Initiated On: 07/31/2022 7:19 AM Procedure Note Mc Grant DO - 07/31/2022 Patient Name: Trudy Sky Attending MD: Mc Grant DO Scope(s) [...] procedure by the physician,the nurse and the route sales associate. The procedure wasverified in the pre-procedure area. [...] the patient. Procedure Code(s): --- Professional --- 32704, Colonoscopy, flexible; with biopsy, single or multiple --- Technical --- 19044, Colonoscopy, flexible; with biopsy, single or multiple [...] or abscess without bleeding CPT copyright 2018 [employer]. All rights reserved. The codes documented in this report are preliminary and upon facilities assistant reviewmay be revised to meet current compliance [...] Recently Relevant to Health Maintenance Insurance [employer] [facility] Advance Directives * Full Code (Latest Code Status on File) Date Activated Date Inactivated Comments 07/23/2022 5:34 PM 07/25/2022 3:59 PM Care Teams Arresting Gear Operator Relationship Specialty Start Date End Date Trevor Rolon DO [address] [facility] [address] [place] [id number] PCP - General Lucy Christopher DO 1 [facility] [place] [address] Consulting Physician Oncology 10/17/24
--- OUTSIDE RECORDS SUMMARY | 2025-04-11 14:04 | XMS_ITS | Encounter Summary ---
Author Organization [facility] Address [address] [place] [address] Care Team Providers Care Geology Technician Name Role Phone Trevor Rolon DO Primary Care Provider [phone] Mc Grant DO Unavailable [phone] El Agarwal ERP ANALYST Unavailable [phone] Encounter Details Date Type Department Care Team (Late Contact Info) Description 02/12/2025 Orders Only External Location [address] [place] [address] Provider, External Social History Tobacco Use Types [...] Description 05/14/2025 2:00 PM EST Appointment [facility] MRI [address] [place] [id number] 05/18/2025 9:15 AM EST Clinical Support [facility] [address] [place] [address] 05/18/2025 9:30 AM EST Clinical Support [facility] [address] [place] [address] CH - CLINICAL NUTRITION 800 [place] [address] 05/18/2025 10:50 AM EST Office Visit [facility] [address] [place] [address] Nj Johns MD [address] [facility] [address] [place] [address] 05/18/2025 11:30 AM EST Social Work [facility] [address] [address] Thuy Dasilva, [place] [address] 05/18/2025 1:00 PM EST Appointment [facility] Radiology [address] [place] [address] 05/18/2025 1:30 PM EST Appointment [facility] [address], 1st [place] [address] 05/18/2025 1:30 PM EST Appointment [facility] [address], 1st [place] [address] 05/18/2025 2:00 PM EST Pharmacist Visit [facility] [address] [place] [address] 05/22/2025 11:15 AM EST Consult [facility] [address], 1st [place] [address] Nigel Recinos MD [address] [address] 05/25/2025 11:30 AM EST Appointment [facility] Radiology [address] [place] [address] 05/25/2025 2:00 PM EST Appointment [facility] Pulmonary Function Testing [address] [place] [address] 05/25/2025 3:30 PM EST Appointment Cardiac Imaging [address] [place] [address] 05/31/2025 4:30 PM EST Appointment [facility] [address] 800 [place] [address] 06/20/2025 10:30 AM EST Procedure Visit [facility] [address], 1st [place] [address] Claire Davidson MD [address] [address] 06/21/2025 2:00 PM EST Office Visit [facility] [address] [facility], [address] [place] [address] Claire Davidson MD [address] [address] documented as of this encounter Procedures Procedure Name Priority Date/Time Associated Diagnosis Comments XR OUTSIDE IMAGES 02/12/2025 2:50 PM EDT documented in this encounter Results * XR OUTSIDE IMAGES (02/12/2025 2:50 PM EDT) Anatomical Region Laterality Modality Radiographic Zayda ging 02/12/2025 2:50 PM EDT External Provider IMG XR PROCEDURES Final Result documented in this encounter Visit Diagnoses Not on filedocumented in this encounter Additional Health Concerns Assessment Noted Time PHQ-9 Depression Total Score: 024 7:48 AM EDT A fall risk assessment has been complete d for the patient 02/22/2024 7:47 AM EDT A Body Mass Index follow-up plan has been documented for the patient 10/10/2024 10:08 AM EDT documented as of this encounter Care Teams Geology Technician Relationship Specialty Start Date End Date Trevor Rolon DO [address] [facility] 201 [place] [address] PCP - General 11/22/20 Mc Grant DO [address] [facility] [address] [place] [address] Referring Physician Gastroenterology 02/21/24 El Agarwal APRN [address] [place] [address] Referring Physician Gastroenterology 03/21/25 documented as of this encounter
--- OUTSIDE RECORDS SUMMARY | 2025-04-11 14:04 | XMS_ITS | Encounter Summary ---
Author Organization [facility] Address [address] [place] [address] Care Team Providers Care Trolley Cleaner Name Role Phone Trevor Rolon DO Primary Care Provider [phone] Mc Grant DO Unavailable [phone] El Agarwal KITCHEN HELP HANDYMAN Unavailable [phone] Encounter Details Date Type Department Care Team (Late Contact Info) Description 02/20/2025 Orders Only External Location [address] [place] [address] Provider, External Social History Tobacco Use Types [...] Description 05/14/2025 2:00 PM EST Appointment [facility] MRI [address] [phone] 05/18/2025 9:15 AM EST Clinical Support [facility] [address] [place] [address] 05/18/2025 9:30 AM EST Clinical Support [facility] [address] [place] [address] CH - CLINICAL NUTRITION 800 [place] [address] 05/18/2025 10:50 AM EST Office Visit [facility] [address] [place] [address] Nj Johns MD [address] [facility] [address] [place] [address] 05/18/2025 11:30 AM EST Social Work [facility] [address] [place] [address] Thuy Dasilva, [place] [address] 05/18/2025 1:00 PM EST Appointment [facility] Radiology [address] [place] [address] 05/18/2025 1:30 PM EST Appointment [facility]iology [address], [address] [place] [address] 05/18/2025 1:30 PM EST Appointment [facility]iology [address], [address] [place] [address] 05/18/2025 2:00 PM EST Pharmacist Visit [facility] [address] [place] [address] 05/22/2025 11:15 AM EST Consult [facility] [address], 1st [place] [address] Nigel Recinos MD [address] [place] [address] 05/25/2025 11:30 AM EST Appointment [facility] Radiology [address] [place] [address] 05/25/2025 2:00 PM EST Appointment [facility] Pulmonary Function Testing [address] [place] [address] 05/25/2025 3:30 PM EST Appointment Cardiac Imaging [address] [place] [address] 05/31/2025 4:30 PM EST Appointment [facility] Breast [facility] Breast Care [address] 800 [place] [address] 06/20/2025 10:30 AM EST Procedure Visit [facility] [address], 1st [place] [address] Claire Davidson MD [address] [address] 06/21/2025 2:00 PM EST Office Visit [facility] [address] [facility], [address] [place] [address] Claire Davidson MD [address] [facility] [place] [address] documented as of this encounter Procedures Procedure Name Priority Date/Time Associated Diagnosis Comments MR NEURO OUTSIDE IMAGES 02/20/2025 1:19 PM EDT documented in this encounter Results * MR NEURO OUTSIDE IMAGES (02/20/2025 1:19 PM EDT) Anatomical Region Laterality Modality Magnetic Resonan ce 02/20/2025 1:19 PM EDT us External Provider IMG MRI PROCEDURES [...] documented as of this encounter Care Teams Trolley Cleaner Relationship Specialty Start Date End Date Trevor Rolon DO [address] [facility] [address] [place] [address] PCP - General 11/22/20 Mc Grant DO [address] [facility] [address] [place] [address] Referring Physician Gastroenterology 02/21/24 El Agarwal APRN [address] [place] [address] Referring Physician Gastroenterology 03/21/25 documented as of this encounter
--- OUTSIDE RECORDS SUMMARY | 2025-04-11 14:04 | XMS_ITS | Encounter Summary ---
Author Organization [facility] Address [address] [place] [address] Care Team Providers Care Clerical Assistant Name Role Phone Trevor Rolon DO Primary Care Provider Mc Grant DO Unavailable [phone] El Agarwal BOW TACKER Unavailable [phone] Encounter Details Date Type Department Care Team (Late Contact Info) Description 08/16/2024 Orders Only External Location [address] [place] [address] Provider, External Social History Tobacco Use Types [...] Description 05/14/2025 2:00 PM EST Appointment [facility] MRI [address] [place] [address] 05/18/2025 9:15 AM EST Clinical Support [facility] [address] [place] [address] 05/18/2025 9:30 AM EST Clinical Support [facility] [address] [place] [address] CH - CLINICAL NUTRITION [address] [place], [place] [phone] 05/18/2025 10:50 AM EST Office Visit [facility] [address] [place] [address] Nj Johns MD [address] [facility] [address] [place] [address] 05/18/2025 11:30 AM EST Social Work [facility] [address] [place] [address] Thuy Dasilva, [place] [address] 05/18/2025 1:00 PM EST Appointment [facility] Radiology [address] [place] [address] 05/18/2025 1:30 PM EST Appointment [facility]iology [address], 1st [place] [address] 05/18/2025 1:30 PM EST Appointment [facility] [address], 1st [place] [address] 05/18/2025 2:00 PM EST Pharmacist Visit [facility] [address] [place] [address] 05/22/2025 11:15 AM EST Consult [facility] [address], 1st [place] [address] Nigel Recinos MD [address] [address] 05/25/2025 11:30 AM EST Appointment [facility] Radiology [address] [place] [address] 05/25/2025 2:00 PM EST Appointment [facility] Pulmonary Function Testing [address] [place] [address] 05/25/2025 3:30 PM EST Appointment Cardiac Imaging [address] [place] [address] 05/31/2025 4:30 PM EST Appointment [facility] [address] 800 [place] [address] 06/20/2025 10:30 AM EST Procedure Visit [facility] [address], 1st [place] [address] Claire Davidson MD [address] [address] 06/21/2025 2:00 PM EST Office Visit [facility] [address] [facility], [address] [place] [address] Claire Davidson MD [address] [address] documented as of this encounter [...] documented as of this encounter Care Teams Clerical Assistant Relationship Specialty Start Date End Date Trevor Rolon DO [address] [facility] 201 [place] [address] PCP - General 11/22/20 Mc Grant DO [address] [facility] 201 [place] [address] Referring Physician Gastroenterology 02/21/24 El Agarwal APRN [address] [place] [address] Referring Physician Gastroenterology 03/21/25 documented as of this encounter
--- OUTSIDE RECORDS SUMMARY | 2025-04-11 14:04 | XMS_ITS ---
Author Organization [facility] Address [address] [place] [address] Care Team Providers Care Staff Veterinarian Name Role Phone Trevor Rolon DO Primary Care Provider Mc Grant DO Unavailable [phone] El Agarwal APRN Unavailable [phone] Transplant Episode Liver Candidate [facility] ([place], [place]) - [facility] Referred on 03/21/2025 Marked as Active on 03/21/2025 Reason: Scheduled for ICE Liver CoordinatorMadyson Sarabia RN Fax: N/A Email: N/A Scores Score Value Updated Expires Exceptions/Mela sons CPRA Not available MELD (Calc) 16 04/03/2025 Care Team Name Role Phone Fax Email Madyson Sarabia RN Liver Coordinator [phone] N/A N/A Thuy Dasilva LCSW Usability Specialist [phone] N/A N/A Asael Esteves MD Surgeon [phone] N/A El Agarwal APRN Referring Physician [phone] N/A Events Pre-Transplant Referred: 03/21/2025 Committee: 04/09/2025 Appointments (03/12/2025 - 05/12/2025) When With Visit Type Description 04/03/2025 Transplant - Swapnil Madrigal MD; Surgeon, Transplant Liver Initial Clinic Evaluation 04/03/2025 Transplant - Damon Johns Initial Clinic Evaluation End-stage liver disease (CMS/HCC) (Primary Dx); Metabolic syndrome; Other ascites; Hepatic encephalopathy (CMS/HCC); Elevated alkaline phosphatase level 04/03/2025 Transplant - Eloisa Chen LAB Routin e general medical examination at a health care facility (Primary Dx); End-stage liver disease (CMS/HCC)
--- OUTSIDE RECORDS SUMMARY | 2025-04-11 14:04 | XMS_ITS | Encounter Summary ---
Author Organization [facility] Address [address] [place] [address] Care Team Providers Care Forepart Reducer Name Role Phone Trevor Rolon DO Primary Care Provider [phone] Mc Grant DO Unavailable [phone] El Agarwal SERVICE TECHNICIAN Unavailable [phone] Encounter Details Date Type Department Care Team (Late Contact Info) Description 10/24/2024 Orders Only External Location [address] [place] [address] Provider, External Social History Tobacco Use Types [...] Description 05/14/2025 2:00 PM EST Appointment [facility] MRI [address] [place] [address] 05/18/2025 9:15 AM EST Clinical Support [facility] [address] [place] [address] 05/18/2025 9:30 AM EST Clinical Support [facility] [address] [place] [address] CH - CLINICAL NUTRITION [address] [place] [address] 05/18/2025 10:50 AM EST Office Visit [facility] [address] [place] [address] Nj Johns MD [address] [facility] [address] [place] [address] 05/18/2025 11:30 AM EST Social Work [facility] [address] [place] [address] Thuy Dasilva, [place] [address] 05/18/2025 1:00 PM EST Appointment [facility] Radiology [address] [place] [phone] 05/18/2025 1:30 PM EST Appointment [facility] Radiology [address], 1st [place] [address] 05/18/2025 1:30 PM EST Appointment [facility] Radiology [address], 1st [place] [address] 05/18/2025 2:00 PM EST Pharmacist Visit [facility] [address] [place] [address] 05/22/2025 11:15 AM EST Consult [facility] [address], 1st [place] [address] Nigel Recinos MD [address] [address] 05/25/2025 11:30 AM EST Appointment [facility] Radiology [address] [place] [address] 05/25/2025 2:00 PM EST Appointment [facility] H Pulmonary Function Testing [address] [place] [address] 05/25/2025 3:30 PM EST Appointment Cardiac Imaging [address] [place] [address] 05/31/2025 4:30 PM EST Appointment [facility] Breast [facility] Breast Care [address] [place] [address] 06/20/2025 10:30 AM EST Procedure Visit [facility] [address], 1st [place] [address] Claire Davidson MD [address] [address] 06/21/2025 2:00 PM EST Office Visit [facility] [address] [facility], [address] [place] [address] Claire Davidson MD [address] [facility]01 [place] [address] documented as of this encounter Procedures Procedure Name Priority Date/Time Associated Diagnosis Comments US OUTSIDE IMAGES 10/24/2024 12:52 PM EDT documented in this encounter Results * US OUTSIDE IMAGES (10/24/2024 12:52 PM EDT) Anatomical Region Laterality Modality Ultrasound 10/24/2024 12:5 2 PM EDT us External Provider IMG US PROCEDURES Final [...] documented as of this encounter Care Teams Forepart Reducer Relationship Specialty Start Date End Date Trevor Rolon DO [address] [facility] 201 [place] [address] PCP - General 11/22/20 Mc Grant DO [address] [facility] 201 [place] [address] Referring Physician Gastroenterology 02/21/24 El Agarwal APRN [address] [place] [address] Referring Physician Gastroenterology 03/21/25 documented as of this encounter
--- OUTSIDE RECORDS SUMMARY | 2025-04-11 14:04 | XMS_ITS | Encounter Summary ---
Author Organization [facility] Address [address] [place] [address] Care Team Providers Care Assistant Inventory Manager Name Role Phone Trevor Rolon DO Primary Care Provider [phone] Mc Grant DO Unavailable [phone] El Agarwal INJECTION MOLDING MACHINE TENDER Unavailable [phone] Encounter Details Date Type Department Care Team (Late Contact Info) Description 11/15/2024 Orders Only External Location [address] [place] [address] Provider, External Social History Tobacco Use Types [...] Description 05/14/2025 2:00 PM EST Appointment [facility] MRI [address] [place] [address] 05/18/2025 9:15 AM EST Clinical Support [facility] [address] [place] [address] 05/18/2025 9:30 AM EST Clinical Support [facility] [address] [place] [address] CH - CLINICAL NUTRITION [address] [place] [address] 05/18/2025 10:50 AM EST Office Visit [facility] [address] [place] [address] Nj Johns MD [address] [facility] [address] [place] [address] 05/18/2025 11:30 AM EST Social Work [facility] [address] [place] [address] Thuy Dasilva, [place] [address] 05/18/2025 1:00 PM EST Appointment [facility] Radiology [address] [place] [address] 05/18/2025 1:30 PM EST Appointment [facility] Radiology [address], [address] [place] [address] 05/18/2025 1:30 PM EST Appointment [facility] Radiology [address], 1[address] [place] [address] 05/18/2025 2:00 PM EST Pharmacist Visit [facility] [address] [place] [address] 05/22/2025 11:15 AM EST Consult [facility] [address], 1st [place] [address] Nigel Recinos MD [address] [address] 05/25/2025 11:30 AM EST Appointment [facility] Radiology [address] [place] [address] 05/25/2025 2:00 PM EST Appointment [facility] H Pulmonary Function Testing [address] [place] [address] 05/25/2025 3:30 PM EST Appointment Cardiac Imaging [address] [place] [address] 05/31/2025 4:30 PM EST Appointment [facility] Breast [facility] Breast Care [address] [place] [address] 06/20/2025 10:30 AM EST Procedure Visit [facility] [address], 1st [place] [address] Claire Davidson MD [address] [address] 06/21/2025 2:00 PM EST Office Visit [facility] [address] [facility], [address] [place] [address] Claire Davidson MD [address] [facility]01 [place] [address] documented as of this encounter Procedures Procedure Name Priority Date/Time Associated Diagnosis Comments US OUTSIDE IMAGES 11/15/2024 2:09 PM EDT documented in this encounter Results * US OUTSIDE IMAGES (11/15/2024 2:09 PM EDT) Anatomical Region Laterality Modality Ultrasound 11/15/2024 2:09 PM EDT us External Provider IMG US [...] documented as of this encounter Care Teams Assistant Inventory Manager Relationship Specialty Start Date End Date Trevor Rolon DO [address] [facility] 201 [place] [address] PCP - General 11/22/20 Mc Grant DO [address] [facility] 201 [place] [address] Referring Physician Gastroenterology 02/21/24 El Agarwal APRN [address] [place] [address] Referring Physician Gastroenterology 03/21/25 documented as of this encounter
--- OUTSIDE RECORDS SUMMARY | 2025-04-11 14:04 | XMS_ITS | Encounter Summary ---
Author Organization [facility] Address [address] [place] [address] Care Team Providers Care Tube Inspector Name Role Phone Trevor Rolon DO Primary Care Provider [phone] Mc Grant DO Unavailable [phone] El Agarwal WAXER Unavailable [phone] Encounter Details Date Type Department Care Team (Late Contact Info) Description 11/15/2024 Orders Only External Location [address] [place] [address] Provider, External Social History Tobacco Use Types [...] Description 05/14/2025 2:00 PM EST Appointment [facility] MRI [address] [place] [id number] 05/18/2025 9:15 AM EST Clinical Support [facility] [address] [place] [address] 05/18/2025 9:30 AM EST Clinical Support [facility] [address] [place] [address] CH - CLINICAL NUTRITION [address] [place] [address] 05/18/2025 10:50 AM EST Office Visit [facility] [address] [place] [address] Nj Johns MD [address] [facility] D[address] [place] [address] 05/18/2025 11:30 AM EST Social Work [facility] [address] [place] [address] Thuy Dasilva, [place] [address] 05/18/2025 1:00 PM EST Appointment [facility] Radiology [address] [place] [address] 05/18/2025 1:30 PM EST Appointment [facility] Radiology [address], 1st [place] [address] 05/18/2025 1:30 PM EST Appointment [facility] Radiology [address], 1st [place] [address] 05/18/2025 2:00 PM EST Pharmacist Visit [facility] [address] [place] [address] 05/22/2025 11:15 AM EST Consult [facility] [address], 1st [place] [address] Nigel Recinos MD [address] [address] 05/25/2025 11:30 AM EST Appointment [facility] Radiology [address] [place] [address] 05/25/2025 2:00 PM EST Appointment [facility] Pulmonary Function Testing [address] [place] [address] 05/25/2025 3:30 PM EST Appointment Cardiac Imaging [address] [place] [address] 05/31/2025 4:30 PM EST Appointment [facility] Breast [facility] Breast Care [address] 800 [place] [address] 06/20/2025 10:30 AM EST Procedure Visit [facility] [address], 1st [place] [address] Claire Davidson MD [address] [address] 06/21/2025 2:00 PM EST Office Visit [facility] [address] [facility], [address] [place] [address] Claire Davidson MD [address] [address] documented as of this encounter Procedures Procedure Name Priority Date/Time Associated Diagnosis Comments XR MSK OUTSIDE IMAGES 11/15/2024 1:32 PM EDT documented in this encounter Results * XR MSK OUTSIDE IMAGES (11/15/2024 1:32 PM EDT) Anatomical Region Laterality Modality Radiographic Zayda ging 11/15/2024 1:32 PM EDT us External Provider IMG XR [...] documented as of this encounter Care Teams Tube Inspector Relationship Specialty Start Date End Date Trevor Rolon DO [address] [facility] [address] [place] [address] PCP - General 11/22/20 Mc Grant DO [address] [facility] [address] [place] [address] Referring Physician Gastroenterology 02/21/24 El Agarwal APRN [address] [place] [address] Referring Physician Gastroenterology 03/21/25 documented as of this encounter
--- OUTSIDE RECORDS SUMMARY | 2025-04-11 14:04 | XMS_ITS | Encounter Summary ---
Author Organization [facility] nter Address [address] [place] [address] Care Team Providers Care Records Management Clerk Name Role Phone Trevor Rolon DO Primary Care Provider Lucy Christopher DO Unavailable Encounter Details Date Type Department Care Team (Late st Contact Info) Description 02/16/2025 Telephone [facility] NEUROLOGY PRACTICE [address], 8th Floor Clinic [place] [address] Francisca Wolf [address] [place] [address] Social History Tobacco Use Types Packs/Day Years [...] How often do you attend chur or jew services? More than 4 times per year 07/24/2022 Do you belong to any clubs o r organizations such as gnosticism groups, unions, fraternal or athletic groups, or [...] encounter Miscellaneous Notes * Telephone Encounter - Krunal Shepherd - 02/16/2025 12:19 PM EDT Called pre Marcelina Hyde NP to Me (Selected Message) 02/16/25 11:57 AM Note There was been an order put in and referral sent to insurance. It shows that it is still pending. Pt verba;ized understanding * Telephone Encounter - Marcelina Hyde NP - 02/16/2025 11:57 AM EDT There was been an order put in and referral sent to insurance. It shows that it is still pending. documented in this encounter Plan of Treatment Upcoming Encounters Date Type Department Care Team (Late st Contact Info) Description 04/30/2025 9:00 AM EDT Appointment [facility] ULTRASOUND [address], 2nd [place] [address] 05/07/2025 3:00 PM EDT Appointment [facility] MAMMOGRAPHY SERVICES [address], [place] [address] 06/18/2025 10:30 AM EST Office Visit [facility] GASTROENTEROLOGY PRACTICE [address], 2nd Floor Clinic [facility] [place] [address] 06/27/2025 10:00 AM EST Office Visit [facility] SLEEP LAB PRACTICE [address], Tommy [facility] [place] [address] NovemberMarcelina NP [address] [facility] [place] [address] 08/16/2025 10:00 AM EST Office Visit [facility] ENDOCRINOLOGY PRACTICE [address], 8th Floor [facility] [place] [address] Brigitte Mahoney NP [address] [facility] [place] [address] 09/18/2025 1:30 PM EDT Office Visit [facility] RHEUMATOLOGY PRACTICE [address], 8th [place] [address] Suman Treviño MD [address] [facility]. A [place] [phone] 12/13/2025 11:00 AM EDT Office Visit [facility] OBGYN PRACTICE [address], 7th Floor [facility] [place] [address] Janice Woodward NP [address] [place] [address] documented as of this encounter Visit Diagnoses Not on filedocumented in this encounter Additional Health Concerns Assessment Noted Time PHQ-9 Depression Total Score: 0 07/24/19 23 3:00 PM EST documented as of this encounter Care Teams Records Management Clerk Relationship Specialty Start Date End Date Trevor Rolon DO [address] [facility] [address] [place] [address] PCP - General Lucy Christopher DO [address] [place] [address] [place] [address] Consulting Physician Oncology 10/17/24 documented as of this encounter
--- OUTSIDE RECORDS SUMMARY | 2025-04-11 14:04 | XMS_ITS | Encounter Summary ---
Author Organization [facility] Address [address] [place] [address] Care Team Providers Care Floor Covering Printer Name Role Phone Trevor Rolon DO Primary Care Provider [phone] Mc Grant DO Unavailable [phone] El Agarwal TECHNICAL DEVELOPER Unavailable [phone] Encounter Details Date Type Department Care Team (Late Contact Info) Description 02/12/2025 Orders Only External Location [address] [place] [address] Provider, External Social History Tobacco Use Types [...] Description 05/14/2025 2:00 PM EST Appointment [facility] MRI [address] [place] [id number] 05/18/2025 9:15 AM EST Clinical Support [facility] [address] [place] [place] [address] 05/18/2025 9:30 AM EST Clinical Support [facility] [address] [place] [address] CH - CLINICAL NUTRITION [address] [place] [address] 05/18/2025 10:50 AM EST Office Visit [facility] [address] [place] [address] Nj Johns MD [address] [facility] [address] [place] [address] 05/18/2025 11:30 AM EST Social Work [facility] [address] [place] [address] Thuy Dasilva, [place] [address] 05/18/2025 1:00 PM EST Appointment [facility] Radiology [address] [place] [address] 05/18/2025 1:30 PM EST Appointment [facility] Radiology [address], 1st [place] [address] 05/18/2025 1:30 PM EST Appointment [facility] Radiology [address], 1st [place] [address] 05/18/2025 2:00 PM EST Pharmacist Visit [facility] [address] [place] [address] 05/22/2025 11:15 AM EST Consult [facility] [address], 1st [place] [address] Nigel Recinos MD [address] [address] 05/25/2025 11:30 AM EST Appointment [facility] [address] [place] [address] 05/25/2025 2:00 PM EST Appointment [facility] Pulmonary Function Testing [address] [place] [address] 05/25/2025 3:30 PM EST Appointment Cardiac Imaging [address] [place] [address] 05/31/2025 4:30 PM EST Appointment [facility] Breast [facility] Breast Care [address] 800 [place] [address] 06/20/2025 10:30 AM EST Procedure Visit [facility] [address], 1st [place] [address] Claire Davidson MD [address] [address] 06/21/2025 2:00 PM EST Office Visit [facility] Specialty Care Clinic [address] [facility], [address] [place] [address] Claire Davidson MD [address] [address] documented as of this encounter Procedures Procedure Name Priority Date/Time Associated Diagnosis Comments XR MSK OUTSIDE IMAGES 02/12/2025 2:49 PM EDT documented in this encounter Results * XR MSK OUTSIDE IMAGES (02/12/2025 2:49 PM EDT) Anatomical Region Laterality Modality Radiographic Zayda ging 02/12/2025 2:49 PM EDT us External Provider IMG XR [...] as of this encounter Care Teams Floor Covering Printer Relationship Specialty Start Date End Date Trevor Rolon DO [address] [facility] [address] [place] [address] PCP - General 11/22/20 Mc Grant DO [address] [facility] [address] [place] [address] Referring Physician Gastroenterology 02/21/24 El Agarwal APRN [address] [place] [address] Referring Physician Gastroenterology 03/21/25 documented as of this encounter
--- OUTSIDE RECORDS SUMMARY | 2025-04-11 14:04 | XMS_ITS | Encounter Summary ---
Author Organization [facility] Address [address] [place] [address] Care Team Providers Care Convenience Store Manager Name Role Phone Trevor Rolon DO Primary Care Provider [phone] Mc Grant DO Unavailable [phone] El Agarwal [place] FARMER Unavailable [phone] Encounter Details Date Type Department Care Team (Late Contact Info) Description 11/15/2024 Orders Only External Location [address] [place] [address] Provider, External Social History Tobacco Use Types [...] Description 05/14/2025 2:00 PM EST Appointment [facility] MRI [address] [place] [phone] 05/18/2025 9:15 AM EST Clinical Support [facility] [address] [place] [address] 05/18/2025 9:30 AM EST Clinical Support [facility] [address] [place] [address] CH - CLINICAL NUTRITION [address] [place] [address] 05/18/2025 10:50 AM EST Office Visit [facility] [address] [place] [address] Nj Johns MD [address] [facility] [address] [place] [address] 05/18/2025 11:30 AM EST Social Work [facility] [address] [place] [address] Thuy Dasilva, [place] [address] 05/18/2025 1:00 PM EST Appointment [facility] Radiology [address] [place] [address] 05/18/2025 1:30 PM EST Appointment [facility] Radiology [address], 1st [place] [address] 05/18/2025 1:30 PM EST Appointment [facility] Radiology [address], 1st [place] [address] 05/18/2025 2:00 PM EST Pharmacist Visit [facility] [address] [place] [address] 05/22/2025 11:15 AM EST Consult [facility] [address], 1st [place] [address] Nigel Recinos MD [address] [address] 05/25/2025 11:30 AM EST Appointment [facility] [address] [place] [address] 05/25/2025 2:00 PM EST Appointment [facility] Pulmonary Function Testing [address] [place] [address] 05/25/2025 3:30 PM EST Appointment Cardiac Imaging [address] [place] [address] 05/31/2025 4:30 PM EST Appointment [facility] Breast Care [address] 800 [place] [address] 06/20/2025 10:30 AM EST Procedure Visit [facility] [address], 1st [place] [address] Claire Davidson MD [address] [address] 06/21/2025 2:00 PM EST Office Visit [facility] Specialty Care Clinic [address] [facility], [address] [place] [address] Claire Davidson MD [address] [facility]01 [place] [address] documented as of this encounter Procedures Procedure Name Priority Date/Time Associated Diagnosis Comments US OUTSIDE IMAGES 11/15/2024 2:02 PM EDT documented in this encounter Results * US OUTSIDE IMAGES (11/15/2024 2:02 PM EDT) Anatomical Region Laterality Modality Ultrasound 11/15/2024 2:02 PM EDT us External Provider IMG US [...] documented as of this encounter Care Teams Convenience Store Manager Relationship Specialty Start Date End Date Trevor Rolon DO [address] [facility] 201 [place] [address] PCP - General 11/22/20 Mc Grant DO [address] [facility] 201 [place] [address] Referring Physician Gastroenterology 02/21/24 El Agarwal APRN [address] [place] [address] Referring Physician Gastroenterology 03/21/25 documented as of this encounter
--- OUTSIDE RECORDS SUMMARY | 2025-04-11 14:04 | XMS_ITS | Encounter Summary ---
Author Organization [facility] Address [address] [place] [address] Care Team Providers Care Internet Salesperson Name Role Phone Trevor Rolon DO Primary Care Provider [phone] Mc Grant DO Unavailable [phone] El Agarwal DEFENCE INTELLIGENCE ANALYST Unavailable [phone] Encounter Details Date Type Department Care Team (Late Contact Info) Description 11/15/2024 Orders Only External Location [address] [place] [address] Provider, External Social History Tobacco Use Types [...] 05/14/2025 2:00 PM EST Appointment [facility] MRI [address] [place] [address] 05/18/2025 9:15 AM EST Clinical Support [facility] [address] [place] [place] [address] 05/18/2025 9:30 AM EST Clinical Support [facility] [address] [place] [address] CH - CLINICAL NUTRITION [address] [place] [address] 05/18/2025 10:50 AM EST Office Visit [facility] [address] [place] [address] Nj Johns MD [address] [facility] [address] [place] [address] 05/18/2025 11:30 AM EST Social Work [facility] [address] [place] [address] Thuy Dasilva, [place] [address] 05/18/2025 1:00 PM EST Appointment [facility] Radiology [address] [place] [address] 05/18/2025 1:30 PM EST Appointment [facility] [address], 1st [place] [address] 05/18/2025 1:30 PM EST Appointment [facility]iology [address], 1st [place] [address] 05/18/2025 2:00 PM EST Pharmacist Visit [facility] [address] [place] [address] 05/22/2025 11:15 AM EST Consult [facility] [address], 1st [place] [address] Nigel Recinos MD [address] [address] 05/25/2025 11:30 AM EST Appointment [facility] [address] [place] [address] 05/25/2025 2:00 PM EST Appointment [facility] Pulmonary Function Testing [address] [place] [address] 05/25/2025 3:30 PM EST Appointment Cardiac Imaging [address] [place] [address] 05/31/2025 4:30 PM EST Appointment [facility] Breast [facility] Breast Care [address] [place] [address] 06/20/2025 10:30 AM EST Procedure Visit [facility] [address], 1st [place] [address] Claire Davidson MD [address] [address] 06/21/2025 2:00 PM EST Office Visit [facility] Specialty Care Clinic [address] [facility], [address] [place] [address] Claire Davidson MD [address] [place] [address] documented as of this encounter [...] documented as of this encounter Care Teams Internet Salesperson Relationship Specialty Start Date End Date Trevor Rolon DO [address] [facility] [address] [place] [address] PCP - General 11/22/20 Mc Grant DO [address] [facility] [address] [place] [address] Referring Physician Gastroenterology 02/21/24 El Agarwal APRN [address] [place] [address] Referring Physician Gastroenterology 03/21/25 documented as of this encounter
--- OUTSIDE RECORDS SUMMARY | 2025-04-11 14:04 | XMS_ITS | Encounter Summary ---
Author Organization [facility] Address [address] [place] [address] Care Team Providers Care Credit Risk Management Director Name Role Phone Trevor Rolon DO Primary Care Provider [phone] Mc Grant DO Unavailable [phone] El Agarwal LEGAL CASHIER Unavailable [phone] Encounter Details Date Type Department Care Team (Late st Contact Info) Description 02/28/2025 [facility] Community Practice [address] [place] [address] Laquita Corral PA [address] [place] [address] Social History Tobacco Use Types Packs/Day Years [...] Description 05/14/2025 2:00 PM EST Appointment [facility] MRI [address] [place] [address] 05/18/2025 9:15 AM EST Clinical Support [facility] [address] [place] [address] 05/18/2025 9:30 AM EST Clinical Support [facility] [address] [place] [address] CH - CLINICAL NUTRITION [address] [place], [place] [address] 05/18/2025 10:50 AM EST Office Visit [facility] [place] [address] [place] [address] Nj Johns MD [address] [facility] [address] [place] [address] 05/18/2025 11:30 AM EST Social Work [facility] [address] [place] [address] Thuy Dasilva, [place] [address] 05/18/2025 1:00 PM EST Appointment [facility] [address] [place] [address] 05/18/2025 1:30 PM EST Appointment [facility] [address], 1st [place] [address] 05/18/2025 1:30 PM EST Appointment [facility] [address], 1st [place] [address] 05/18/2025 2:00 PM EST Pharmacist Visit [facility] [address] [facility] [address] [place] [address] 05/22/2025 11:15 AM EST Consult [facility] [address], 1st [place] [address] Nigel Recinos MD [address] [address] 05/25/2025 11:30 AM EST Appointment [facility] [address] [place] [address] 05/25/2025 2:00 PM EST Appointment [facility] Pulmonary Function Testing [address] [place] [address] 05/25/2025 3:30 PM EST Appointment Cardiac Imaging [address] [place] [address] 05/31/2025 4:30 PM EST Appointment [facility] [address] [place] [address] 06/20/2025 10:30 AM EST Procedure Visit [facility] [address], 1st [place] [address] Claire Davidson MD [address] [address] 06/21/2025 2:00 PM EST Office Visit [facility] [address] [facility], [address] [place] [address] Claire Davidson MD [address] [address] documented as of this encounter Visit [...] documented as of this encounter Care Teams Credit Risk Management Director Relationship Specialty Start Date End Date Trevor Rolon DO [address] [facility] 201 [place] [address] PCP - General 11/22/20 Mc Grant DO [address] [facility] 201 [place] [address] Referring Physician Gastroenterology 02/21/24 El Agarwal APRN [address] [place] [address] Referring Physician Gastroenterology 03/21/25 documented as of this encounter
--- OUTSIDE RECORDS SUMMARY | 2025-04-11 14:04 | XMS_ITS | Encounter Summary ---
Author Organization [facility] nter Address [address] [place] [address] Care Team Providers Care Processing Analyst Name Role Phone Trevor Rolon DO Primary Care Provider Lucy Christopher DO Unavailable Encounter Details Date Type Department Care Team (Late st Contact Info) Description 07/20/2022 Orders Only [facility]STRO[facility]OLOG[facility] PRACT[facility] [address], 2nd [place] [address] Laquita Woods PA [address] [place] [address] Social History Tobacco Use Types [...] week 07/24/2022 How often do you attend [facility] or holiness services? More than 4 [...] Recorded Patient Health Questionnaire-2 Score 0 07/24/2022 [facility] Occupat ional [facility] - [...] a m[facility] (including now)? No 07/24/2022 Comments Unknown Sex [...] on one occasion? Never 07/23/2022 5:28 PM Michelle Oro documented as of this encounter Plan of Treatment Upcoming Encounters Date Type Department Care Team (Late st Contact Info) Description 04/30/2025 9:00 AM EDT Appointment [facility] ULTRASOUND [address], 2nd [place] [address] 05/07/2025 3:00 PM EDT Appointment [facility] MAMMOGRAPHY SERVICES BLDG D [address], [place] [address] 06/18/2025 10:30 AM EST Office Visit [facility] [address], 2nd Floor [facility] [place] [address] 06/27/2025 10:00 AM EST Office Visit [facility] SLEEP LAB PRACTICE [address], [facility] [place] [place] [address] NovemberMarcelina NP [address] [place] [facility] 08/16/2025 10:00 AM EST Office Visit [facility] ENDOCRIN[facility]ACT[facility] [address], 8th Floor [facility] [place] [address] Brigitte Mahoney NP [address] Bldg A [place] [phone] 09/18/2025 1:30 PM EDT Office Visit [facility] RHEUMATOLOGY PRACTICE [address], 8th Floor [facility] [place] [address] Suman Treviño MD [address] [place] [place] [address] 12/13/2025 11:00 AM EDT Office Visit [facility] OBGYN [facility] [address], 7th [place] [address] Janice Woodward NP [address] [place] [phone] documented as of this encounter Visit Diagnoses Not on filedocumented in this encounter Care Teams Processing Analyst Relationship Specialty Start Date End Date Trevor Rolon DO [address] [facility] [address] [place] [id number] PCP - General Lucy Christopher DO [address] [facility] [place] [address] Consulting Physician Oncology 10/17/24 documented as of this encounter
--- OUTSIDE RECORDS SUMMARY | 2025-04-11 14:04 | XMS_ITS | Encounter Summary ---
Author Organization [facility] Address [address] [place] [address] Care Team Providers Care Supervisor Tunnel Heading Name Role Phone Trevor Rolon DO Primary Care Provider [phone] Mc Grant DO Unavailable [phone] El Agarwal FOLLOW UP REP Unavailable [phone] Encounter Details Date Type Department Care Team (Late Contact Info) Description 09/08/2024 Orders Only External Location [address] [place] [address] Provider, External Social History Tobacco Use Types [...] Description 05/14/2025 2:00 PM EST Appointment [facility] MRI [address] [place] [address] 05/18/2025 9:15 AM EST Clinical Support [facility] Transplant Center [address] [place] [address] 05/18/2025 9:30 AM EST Clinical Support [facility] Transplant Center [address] [place] [address] CH - CLINICAL NUTRITION [address] [place], [place] [phone] 05/18/2025 10:50 AM EST Office Visit [facility] Transplant Center [address] [place] [address] Nj Johns MD [address] [facility] D201 [place] [address] 05/18/2025 11:30 AM EST Social Work [facility] Transplant Center [address] [place] [address] Thuy Dasilva, [place] [address] 05/18/2025 1:00 PM EST Appointment [facility] Radiology [address] [place] [address] 05/18/2025 1:30 PM EST Appointment [facility] Radiology [address], 1st [place] [address] 05/18/2025 1:30 PM EST Appointment [facility] [address], 1st [place] [address] 05/18/2025 2:00 PM EST Pharmacist Visit [facility] Transplant Center [address] [place] [address] 05/22/2025 11:15 AM EST Consult [facility] [address], 1st [place] [address] Nigel Recinos MD [address] [address] 05/25/2025 11:30 AM EST Appointment [facility] Radiology [address] [place] [address] 05/25/2025 2:00 PM EST Appointment [facility] Pulmonary Function Testing [address] [place] [address] 05/25/2025 3:30 PM EST Appointment Cardiac Imaging [address] [place] [address] 05/31/2025 4:30 PM EST Appointment [facility] Breast Care [address] 800 [place] [address] 06/20/2025 10:30 AM EST Procedure Visit [place] [facility] [address], 1st [place] [address] Claire Davidson MD [address] [address] 06/21/2025 2:00 PM EST Office [facility] Clinic [address] [facility], [address] [place] [address] Claire Davidson MD [address] [address] documented as of this encounter Procedures Procedure Name Priority Date/Time Associated Diagnosis Comments XR THORACIC OUTSIDE IMAGES 09/08/2024 6:16 PM EST documented in this encounter Results * XR THORACIC OUTSIDE IMAGES (09/08/2024 6:16 PM EST) Anatomical [...] as of this encounter Care Teams Supervisor Tunnel Heading Relationship Specialty Start Date End Date Trevor Rolon DO [address] [facility] 201 [place] [address] PCP - General 11/22/20 Mc Grant DO [address] [facility] 201 [place] [address] Referring Physician Gastroenterology 02/21/24 El Agarwal APRN [address] [place] [address] Referring Physician Gastroenterology 03/21/25 documented as of this encounter
--- OUTSIDE RECORDS SUMMARY | 2025-04-11 14:04 | XMS_ITS | Encounter Summary ---
Author Organization [facility] Address [address] [place] [address] Care Team Providers Care Assorter Name Role Phone Trevor Rolon DO Primary Care Provider Mc Grant DO Unavailable [phone] El Agarwal TRANSMISSION MECHANIC Unavailable [phone] Encounter Details Date Type Department Care Team (Late Contact Info) Description 04/28/2024 Orders Only External Location 800 [place] [address] Provider, External Social History Tobacco Use Types [...] Description 05/14/2025 2:00 PM EST Appointment [facility] MRI [address] [place] [address] 05/18/2025 9:15 AM EST Clinical Support [facility] Transplant Center [address] [place] [address] 05/18/2025 9:30 AM EST Clinical Support [facility] Transplant Center [address] [place] [address] CH - CLINICAL NUTRITION 800 [place], [place] [phone] 05/18/2025 10:50 AM EST Office Visit [facility] Transplant Center [address] [place] [address] Nj Johns MD [address] [facility] D201 [place] [address] 05/18/2025 11:30 AM EST Social Work [facility] Transplant Center [address] [place] [address] Thuy Dasilva, [place] [address] 05/18/2025 1:00 PM EST Appointment [facility] Radiology [address] [place] [address] 05/18/2025 1:30 PM EST Appointment [facility] Radiology [address], 1st [place] [address] 05/18/2025 1:30 PM EST Appointment [place] [facility] Radiology [address], 1st [place] [address] 05/18/2025 2:00 PM EST Pharmacist Visit [facility] Transplant Center [address] [place] [address] 05/22/2025 11:15 AM EST Consult [facility] [address], 1st [place] [address] Nigel Recinos MD [address] [address] 05/25/2025 11:30 AM EST Appointment [facility] Radiology [address] [place] [address] 05/25/2025 2:00 PM EST Appointment [facility] Pulmonary Function Testing 800 [place] [address] 05/25/2025 3:30 PM EST Appointment Cardiac Imaging [address] [place] [address] 05/31/2025 4:30 PM EST Appointment [facility] Breast Care Center [address] 800 [place] [address] 06/20/2025 10:30 AM EST Procedure Visit [place] [facility] [address], 1st [place] [address] Claire Davidson MD [address] [address] 06/21/2025 2:00 PM EST Office Visit [facility] Specialty Care Clinic [address] [facility], [address] [place] [address] Claire Davidson MD [address] [place] [id number] [place] [address] documented as of this encounter Procedures Procedure Name Priority Date/Time Associated Diagnosis Comments US ABDOMEN OUTSIDE IMAGES 04/28/2024 9:39 AM EDT documented in this encounter Results * US ABDOMEN OUTSIDE IMAGES (04/28/2024 9:39 AM EDT) Anatomical Region Laterality Modality Ultrasound 04/28/2024 9:39 AM EDT us External Provider IMG US PROCEDURES [...] documented as of this encounter Care Teams Assorter Relationship Specialty Start Date End Date Trevor Rolon DO [address] [facility] [address] [place] [address] PCP - General 11/22/20 Mc Grant DO [address] [facility] 201 [place] [address] Referring Physician Gastroenterology 02/21/24 El Agarwal APRN [address] [place] [address] Referring Physician Gastroenterology 03/21/25 documented as of this encounter
--- OUTSIDE RECORDS SUMMARY | 2025-04-11 14:04 | XMS_ITS | Encounter Summary ---
Author Organization [facility] Address [address] [place] [address] Care Team Providers Care Mini Baccarat Dealer Name Role Phone Trevor Rolon DO Primary Care Provider [phone] Mc Grant DO Unavailable [phone] El Agarwal DOPER Unavailable [phone] Encounter Details Date Type Department Care Team (Late Contact Info) Description 11/15/2024 Orders Only External Location [address] [place] [address] Provider, External Social History Tobacco Use Types [...] Description 05/14/2025 2:00 PM EST Appointment [facility] MRI [address] [place] [address] 05/18/2025 9:15 AM EST Clinical Support [facility] Transplant Center [address] [place] [address] 05/18/2025 9:30 AM EST Clinical Support [facility] Transplant Center [address] [place] [address] CH - CLINICAL NUTRITION 800 [place] [address] 05/18/2025 10:50 AM EST Office Visit [facility] Transplant Center [address] [place] [address] Nj Johns MD [address] [facility] D[address] [place] [address] 05/18/2025 11:30 AM EST Social Work [facility] Transplant Center [address] [place] [address] Thuy Dasilva, [place] [address] 05/18/2025 1:00 PM EST Appointment [facility] Radiology [address] [place] [address] 05/18/2025 1:30 PM EST Appointment [facility] Radiology [address], 1st [place] [address] 05/18/2025 1:30 PM EST Appointment [facility] Radiology [address], 1st [place] [address] 05/18/2025 2:00 PM EST Pharmacist Visit [facility] Transplant Center [address] [place] [address] 05/22/2025 11:15 AM EST Consult [facility] [address], 1st [place] [address] Nigel Recinos MD [address] [address] 05/25/2025 11:30 AM EST Appointment [facility] Radiology [address] [place] [address] 05/25/2025 2:00 PM EST Appointment [facility] Pulmonary Function Testing [address] [place] [address] 05/25/2025 3:30 PM EST Appointment Cardiac Imaging [address] [place] [address] 05/31/2025 4:30 PM EST Appointment [facility] Breast Care [address] 800 [place] [address] 06/20/2025 10:30 AM EST Procedure Visit [facility] [address], 1st [place] [address] Claire Davidson MD [address] [address] 06/21/2025 2:00 PM EST Office Visit [facility] [address] [facility], [address] [place] [address] Claire Davidson MD [address] [address] documented as of this encounter [...] documented as of this encounter Care Teams Mini Baccarat Dealer Relationship Specialty Start Date End Date Trevor Rolon DO [address] [facility] [address] [place] [address] PCP - General 11/22/20 Mc Grant DO [address] [facility] [address] [place] [address] Referring Physician Gastroenterology 02/21/24 El Agarwal APRN [address] [place] [address] Referring Physician Gastroenterology 03/21/25 documented as of this encounter
--- OUTSIDE RECORDS SUMMARY | 2025-04-11 14:04 | XMS_ITS | Encounter Summary ---
Author Organization [facility] nter Address [address] [place] [address] Care Team Providers Care Regional Education Manager Name Role Phone Trevor Rloon DO Primary Care Provider Lucy Christopher DO Unavailable Encounter Details Date Type Department Care Team (Latest Contact Info) Description 02/20/2025 Travel Social History Tobacco Use Types Packs/Day [...] often do you attend chur ch or confucianism services? More than 4 times per year [...] [facility] Occupat ional Health - [...] [facility] ULTRASOUND [address], 2nd [place] [address] 05/07/2025 3:00 PM EDT Appointment [facility] MAMMOGRAPHY SERVICES [facility] D [address] [facility] [place] [address] 06/18/2025 10:30 AM EST Office Visit [facility] [address], 2nd [place] [address] 06/27/2025 10:00 AM EST Office Visit [facility] SLEEP LAB PRACTICE [address] [place] [address] Marcelina Hyde NP [address] [facility] [place] [address] 08/16/2025 10:00 AM EST Office Visit [facility] ENDOCRIN[facility] [address], 8th Floor [place] [address] Brigitte Mahoney NP [address] [place] [address] 09/18/2025 1:30 PM EDT Office Visit [facility] RHEUMATOLOGY PRACTICE [address], 8th Floor [facility] [place] [address] Suman Treviño MD [address] [place] [place] [address] 12/13/2025 11:00 AM EDT Office Visit [facility] OBGYN PRACTICE [address], 7th [place] [address] Janice Woodward NP [address] [place] [address] documented as of this encounter Visit Diagnoses Not on filedocumented in this encounter Additional Health Concerns Assessment Noted Time PHQ-9 Depression Total Score: 0 07/24/19 23 3:00 PM EST documented as of this encounter Care Teams Regional Education Manager Relationship Specialty Start Date End Date Trevor Rolon DO [address] [facility] [address] [place] [address] PCP - General Lucy Christopher DO [address] [place] [address] Consulting Physician Oncology 10/17/24 documented as of this encounter
--- OUTSIDE RECORDS SUMMARY | 2025-04-11 14:05 | XMS_ITS | Encounter Summary ---
Author Organization [facility] Address [address] [place] [address] Care Team Providers Care Shelving Supervisor Name Role Phone Trevor Rolon DO Primary Care Provider [phone] Mc Grant DO Unavailable [phone] El Agarwal TELEGRAPHIC TYPEWRITER MECHANIC Unavailable [phone] Encounter Details Date Type Department Care Team (Late st Contact Info) Description 03/01/2023 Orders Only External Location [address] [place] [address] Provider, External Social History Tobacco Use Types [...] Encounters Date Type Department Care Team (Late Contact Info) Description 05/14/2025 2:00 PM EST Appointment [facility] [address] [place] [address] 05/18/2025 9:15 AM EST Clinical Support [facility] Transplant Center [address] [place] [address] [place] [address] 05/18/2025 9:30 AM EST Clinical Support [facility] Transplant Center [address] [place] [address] CH - CLINICAL NUTRITION 800 [place] [address] 05/18/2025 10:50 AM EST Office Visit [facility] Transplant Center [address] [place] [address] Nj Jhons MD [address] [place] [address] 05/18/2025 11:30 AM EST Social Work [facility] Transplant Center [address] [place] [address] Thuy Dasilva, [place] [address] 05/18/2025 1:00 PM EST Appointment [facility] Radiology [address] [place] [address] 05/18/2025 1:30 PM EST Appointment [facility] Radiology [address], 1st Floor Wing C [place] [address] 05/18/2025 1:30 PM EST Appointment [place] [facility] Radiology [address], 1st Floor Wing C [place] [address] 05/18/2025 2:00 PM EST Pharmacist Visit [facility] Transplant Center [address] [place] [address] 05/22/2025 11:15 AM EST Consult [facility] [address], 1st Floor Wing C [place] [address] Nigel Recinos MD [address] [address] 05/25/2025 11:30 AM EST Appointment [facility] Radiology [address] [place] [address] 05/25/2025 2:00 PM EST Appointment [facility] Pulmonary Function Testing 800 [place] [address] 05/25/2025 3:30 PM EST Appointment Cardiac Imaging [address] [place] [address] 05/31/2025 4:30 PM EST Appointment [facility] Breast Care Center [address] 800 [place] [address] 06/20/2025 10:30 AM EST Procedure Visit [place] [facility] [address], 1st [place] [address] Claire Davidson MD [address] [address] 06/21/2025 2:00 PM EST Office Visit [facility] Specialty Care Clinic [address] [facility], [address] [place] [address] Claire Davidson MD [address] [address] documented as of this encounter [...] documented as of this encounter Care Teams Shelving Supervisor Relationship Specialty Start Date End Date Trevor Rolon DO [address] [address] PCP - General 11/22/20 Mc Grant DO [address] [address] Referring Physician Gastroenterology 02/21/24 El Agarwal APRN [address] [place] [address] Referring Physician Gastroenterology 03/21/25 documented as of this encounter
--- OUTSIDE RECORDS SUMMARY | 2025-04-11 14:05 | XMS_ITS | Encounter Summary ---
Author Organization [facility] nter Address [address] [place] [address] Care Team Providers Care Anesthesiology Faculty Name Role Phone Trevor Rolon DO Primary Care Provider Lucy Christopher DO Unavailable Reason for Visit * Reason Comments Med Refill Encounter Details Date Type Department Care Team (Late st Contact Info) Description 07/06/[address] [facility] ENDOCRINOLOGY PRACTICE [address], 8th Floor Clinic [place] [phone] Brigitte Mahoney, CLAU [address] [place] [address] Social History Tobacco Use Types [...] How often do you attend chur or rastafari services? More than 4 times per year 07/24/2022 Do you belong to any clubs o r organizations such as uatsdin groups, unions, fraternal or athletic groups, or [...] Recorded Patient Health Questionnaire-2 Score 0 09/28/2023 [facility] of Occupat ional Health - Occupational Stress [...] place to sleep or slept in a jail (including now)? No 07/24/2022 Comments No Sex [...] ULTRASOUND [address], 2nd [place] [address] 05/07/2025 3:00 PM EDT Appointment [facility] MAMMOGRAPHY SERVICES BLDG D [address], [place] [address] 06/18/2025 10:30 AM EST Office Visit [facility] GASTROENTEROLOGY PRACTICE [address], 2nd [place] [address] 06/27/2025 10:00 AM EST Office Visit [facility] SLEEP LAB PRACTICE [address], Tommy [facility] [place] [phone] Marcelina Hyde NP [address] [place] [place] [address] 08/16/2025 10:00 AM EST Office Visit [facility] ENDOCRINOLOGY PRACTICE [address], 8th [place] [address] Brigitte Mahoney NP [address] [place] [address] 09/18/2025 1:30 PM EDT Office Visit [facility] RHEUMATOLOGY PRACTICE [address], 8th [place] [address] Suman Treviño MD [address] [facility] [place] [address] 12/13/2025 11:00 AM EDT Office Visit [facility] OBGYN PRACTICE [address], 7th [place] [address] Janice Woodward NP [address] [place] [phone] documented as of this encounter Visit Diagnoses Not on filedocumented in this encounter Additional Health Concerns Assessment Noted Time PHQ-9 Depression Total Score: 0 07/24/19 23 3:00 PM EST documented as of this encounter Care Teams Anesthesiology Faculty Relationship Specialty Start Date End Date Trevor Rolon DO [address] [facility] [address] [place] [address] PCP - General Lucy Christopher DO 1 [place] [address] Consulting Physician Oncology 10/17/24 documented as of this encounter
--- OUTSIDE RECORDS SUMMARY | 2025-04-11 14:05 | XMS_ITS | Clinical Summary ---
Author Organization [facility] Address [address] [place] [address] Care Team Providers Care Billing Coordinator Name Role Phone Trevor Rolon DO Primary Care Provider [phone] Mc Grant DO Unavailable [phone] El Agarwal [employer]ENCIL [employer]KER Unavailable [phone] Allergies Active Allergy Reactions Criticality Noted Date Comments Iodine Itching,Rash Medium 10/10/2024 Oxycodone Hallucinations High 07/24/2015 Pt states she is not allergic to oxycodone. Pt states she is not allergic to oxycodone. Oxycodone-Acetaminophe n Hallucinations Medium 11/12/2021 Povidone Iodine Hives,Itching,Rash Medium 07/24/2015 Sulfa Drugs Itching,Rash Medium 10/10/2024 Sulfacetamide Hives Medium 07/24/2015 Vortioxetine Hives,Rash Medium 04/09/2020 Wound Dressing Adhesive Other - please document in the comment field Low 11/12/2021 Medications bumetanide (Bumex) 1 MG tablet Take 2 tablets (2 mg) by mouth 1 (one) time each day in the morning. 3 Active lansoprazole (Prevacid) [address] capsule Take 1 capsule (30 mg) by mouth 1 (one) time each day. 3 Active metoprolol succinate XL (Toprol-XL) 50 MG 24 hr tablet Take 2 tablets by mouth daily. 3 Active hydrOXYzine HCl (Atarax) 25 MG tablet Take 1 tablet by mouth daily as needed. 3 Active simvastatin (Zocor) 20 MG tablet Take 1 tablet (20 mg) by mouth 1 (one) time each day. 3 Active rifAXIMin (Xifaxan) 550 MG tablet Take 1 tablet (550 mg) by mouth 2 (two) times a day. 1 Active potassium chloride CR (Klor-Con M20) 20 MEQ ER tablet Take 1 tablet (20 mEq) by mouth 2 (two) times a day. 3 Active rOPINIRole (Requip) 1 MG tablet Take 1 tablet (1 mg) by mouth 4 (four) times a day. 3 Active ergocalciferol (Vitamin D-2) 1.25 MG (97865 UT) capsule Take 1 capsule by mouth 1 time per week. Take only on Tuesdays 0 Active diclofenac (Voltaren) 1 % topical gel apply 2 grams TO affected area FOUR TIMES DAILY 2 Active insulin glargine (Lantus SoloStar) 100 UNIT/ML injection pen Inject 20 Units under the skin every morning. 0 Active Jardiance 25 MG Take 1 tablet (25 mg) by mouth 1 (one) time each day. 3 Active FeroSul 325 (65 Fe) MG tablet Take 1 tablet (325 mg) by mouth 1 (one) time each day. 3 Active Rimegepant Sulfate (Nurtec) 75 MG tablet dispersible Dissolve 1 tablet on the tongue daily as needed. 3 Active busPIRone (Buspar) 7.5 MG tablet Take 1 tablet by mouth 2 times a day. 5 Active desvenlafaxine (Pristiq) 100 MG 24 hr tablet Take 50 mg by mouth 1 time each day. Active NovoLOG FLEXPEN 100 UNIT/ML injection pen Inject 5 Units under the skin 3 times a day as needed. 5 Active hydrOXYzine pamoate (Vistaril) 25 MG capsule Take 1 capsule by mouth 3 times a day as needed. 5 Active ondansetron (Zofran) 4 MG tablet Take 1 tablet by mouth every 8 hours as needed. 4 Active promethazine (Phenergan) 25 MG tablet TAKE 1 Tablet BY MOUTH THREE TIMES A DAY NEEDED FOR NAUSEA AND VOMITING 5 Active lisinopril 2.5 MG tablet Take 1 tablet by mouth daily. 5 Active Ozempic, 1 MG/DOSE, 4 MG/3ML solution pen-injector Inject 1 mg under the skin 1 time per week. 5 Active spironolactone (Aldactone) 100 MG tablet Take 2 tablets by mouth daily. 5 Active Continuous Glucose Sensor (Ichibacom G7 Sensor) misc USE TO MONITOR BLOOD SUGAR DIRECTED. CHANGE SENSOR EVERY 10 DAYS. 5 Active Blood Glucose Monitoring Suppl (JustSpottedStMaXware Lite) w/Device kit use DIRECTED TO check BLOOD GLUCOSE THREE TIMES DAILY 5 Active OneTouch Verio test strip Use 3 per day. Code E11.65 5 Active BD Pen Needle Candie Ultrafine 32G X 4 MM misc 2 times a day. 5 Active Embecta Insulin Syr Ultrafine 31G X 15/64 1 ML misc USE TO INJECT INSULIN EVERY MORNING DIRECTED 5 Active Easy Touch Lancets 30G misc 3 times a day. as directed 5 Active oxyCODONE (Roxicodone) 5 MG immediate release tablet Take 1 tablet by mouth 3 times a day as needed. 5 Active pregabalin (Lyrica) 25 MG capsule Take 1 capsule by mouth daily. 5 Active metoprolol succinate XL (Toprol-XL) 50 MG 24 hr tablet Take 1 tablet by mouth daily. 5 Active valACYclovir (Valtrex) 500 MG tablet Take 1 tablet by mouth every morning. Active pantoprazole (Protonix) 40 MG EC tablet Take 1 tablet by mouth daily. 5 Active lactulose (Chronulac) 10 GM/15ML oral solution Take 15 mL by mouth 2 times a day. 5 Active cyclobenzaprine (Flexeril) 10 MG tablet Take 1 tablet by mouth 3 times a day as needed. 5 Active zinc sulfate (Zincate) 220 (50 Zn) MG capsuleIndicatio ns:End-stage liver disease (CMS/HCC) Take 1 capsule by mouth 2 times a day. 240 capsule 2 5 03/29/20 26 Active baclofen (Lioresal) 10 MG tablet Take 1 tablet by mouth nightly. 30 tablet 5 05/03/20 25 Active Active Problems Problem Noted Date Diagnosed Date Hypertensive retinopathy of both eyes 10/10/2024 Retinal scar of right eye 10/10/2024 High blood pressure 08/25/2022 Iritis 08/25/2022 Restless leg syndrome 08/25/2022 Serratia infection 08/25/2022 Sleep apnea 08/25/2022 Spinal abscess 08/25/2022 Visual field defect 08/25/2022 Dry eyes, bilateral 08/25/2022 Ocular migraine 08/25/2022 Anasarca 07/23/2022 Volume overload [...] experienced similar symptoms and her GI in [place] started her on Xifaxan, which reportedly resolved the symptoms, despite a recurrence in October 2021. Her symptoms today have since significantly resolved, per patient. She states she has had no lapses in taking her medication during these periods, although today she is out of the medication and her GI in [place] has discharged her from the practice due to no-show visits. Dr. Rolon in [place] was called to see if he will Rx the medication. Referral to [facility] was made. Patient also [...] 07/24/2015 Psoriatic arthritis 07/24/2015 Ruptured disk 07/24/2015 Resolved Problems Problem Noted Date Diagnosed Date Resolved Date Myopia of both eyes 08/25/2022 04/01/20 25 Nuclear sclerotic cataract of both eyes 08/25/2022 04/01/2025 Encounters Date Type Department Care Team Description 04/05/[address] [facility] [address] [place] [address] [facility] Same Day Appt/Overbook Request (OVERBOOK) 04/03/2025 8:00 AM EDT Office Visit [facility] [address] [address] Nj Johns MD End-stage liver disease (CMS/HCC) (Primary Dx); Metabolic syndrome; Other ascites; Hepatic encephalopathy (CMS/HCC); Elevated alkaline phosphatase level 04/03/2025 Travel 04/02/2025 Travel 03/28/2025 Telephone [facility] [address] [address] Sharri Almonte 03/28/2025 Telephone [facility] [address] [address] Sharri Almonte Appointment (Confirmation and reminders) 03/28/2025 [facility] [address] [place] [address] Laquita Corral PA Thrombocytopenia (CMS/HCC) (Primary Dx) 03/21/2025 Telephone [facility] [address] [address] Sharri Almonte Appointment 03/21/2025 Telephone [facility] [address] [address] Sharri Almonte Referral - Liver Txp 03/21/2025 [facility] [address] [place] [address] El Agarwal APRN Cirrhosis of liver without ascites, unspecified hepatic cirrhosis type (CMS/HCC) (Primary Dx) 03/08/2025 8:00 AM EDT Consult [facility] ([facility] [address] [facility], [address] [place] [address] Claire Davidson MD Lumbosacral radiculopathy (Primary Dx) 03/08/2025 Travel 03/04/2025 [facility] [address] [place] [address] Laquita Corral PA Neuropathic pain, leg, bilateral (Primary Dx); HTN, goal to be determined 02/28/2025 [facility] [address] [place] [address] Laquita Corral PA 02/20/2025 Orders Only External Location [address] [place] [id number] Provider, External 02/12/2025 Orders Only External Location [address] [place] [phone] Provider, External 02/12/2025 Orders Only External Location [address] [place] [phone] Provider, External from Last 3 Months Immunizations Immunization Administration [...] Mass Index 26.93 04/03/2025 6:54 AM EDT Plan of Treatment Upcoming Encounters Date Type Department Care Team (Late st Contact Info) Description 05/14/2025 2:00 PM EST Appointment [facility] [address] [place] [address] 05/18/2025 9:15 AM EST Clinical Support [facility] [address] [facility] [address] [place] [address] 05/18/2025 9:30 AM EST Clinical Support [facility] [address] [address] CH - CLINICAL NUTRITION [address] [place] [address] 05/18/2025 10:50 AM EST Office Visit [facility] [address] [facility] [address] [place] [phone] Nj Johns MD [address] [facility] [address] [place] [address] 05/18/2025 11:30 AM EST Social Work [facility] [address] [facility] [address] [place] [phone] Thuy Dasilva, [place] [address] 05/18/2025 1:00 PM EST Appointment [facility] [address] [place] [address] 05/18/2025 1:30 PM EST Appointment [facility] [address], [address] [place] [address] 05/18/2025 1:30 PM EST Appointment [facility] [address], [address] [place] [address] 05/18/2025 2:00 PM EST Pharmacist Visit [facility] [address] [place] [address] 05/22/2025 11:15 AM EST Consult [facility] [address], [address] [place] [address] Nigel Recinos MD [address] [place] [address] 05/25/2025 11:30 AM EST Appointment [facility] [address] [place] [phone] 05/25/2025 2:00 PM EST Appointment [facility] Pulmonary Function Testing [address] [place] [address] 05/25/2025 3:30 PM EST Appointment Cardiac Imaging [address] [place] [address] 05/31/2025 4:30 PM EST Appointment [facility] [address] [place] [address] 06/20/2025 10:30 AM EST Procedure Visit [facility] [address], [address] [place] [address] Claire Davidson MD [address] [facility] [address] [place] [phone] 06/21/2025 2:00 PM EST Office Visit [facility] ([facility] [address] [facility], [address] [place] [address] Claire Davidson MD [address] [address] Health Maintenance Due Date Last Done Comments [facility]-/Child/Adol SDOH Screenings 1969 Diabetes: Dental Exam 10/17/1979 [facility]- SDOH Screenings 10/17/1987 [facility]-Adult SDOH Screenings 10/17/1987 [facility]-DTaP,Tdap,and Td Vaccines (1 - Tdap) 1988 [facility]-Pneumococcal Vaccine: 50+ Years (1 of 2 - PCV) 1988 [facility]-HPV/Cotest 10/17/1999 CT Colonography 2014 FIT-DNA 2014 FIT 2014 FOBT 2014 Sigmoidoscopy 2014 [facility]-Zoster Vaccines (1 of 2) 10/17/2019 [facility]-Hepatitis A Vaccines (2 of 3 - Hep A Twinrix risk 3-dose series) 10/11/2020 09/13/2020 [facility]-Hepatitis B Vaccines (2 of 3 - Hep B Twinrix 3-dose series) 10/11/2020 09/13/2020 [id number] Vaccine (2 - season) 2025 12/24/2020 [facility]-Influenza Vaccine (#1) 2025 04/08/2023, [facility]-Diabetes: Hemoglobin A1C 08/26/2025, 06/01/2024, 03/16/2023, Additional history exists [facility]-Breast Cancer Screening 02/14/2026 08/0 12/2023, 04/16/2015, 02/07/2014 [facility]-Depression Screening 04/03/2026 04/03/2025, 03/13 [facility]-Cervical Cancer Screening 12/13/2027 [facility]-Pap Smear 12/13/2027 12/12/2024 Colonoscopy 07/31/2032 07/31/2022, 06/18/2020 [facility]-Colorectal Cancer Screening 07/31/2032 [facility]-HIV Screening Completed 09/08/2019 [facility]-Hepatitis C Screening Completed 2024, 03/27/2025, 09/08/2024, Additional history exists [facility]-Obesity Intervention Completed 025, 03/08/2025, 10/10/2024, Additional history exists HPV Vaccines Aged Out No longer eligi [...] Procedure Name Priority Date/Time Associated Diagnosis Comments ANTI-SP100 AND ANTI-GP210 ANTIBODIES, IGG (SO) Routine 04/03/2025 10:11 AM EDT Routine general medical examination at a [facility] facility MITOCHONDRIAL M2 ANTIBODY, IGG (CRISTAL)(SO) Routine 04/03/2025 10:11 AM EDT End-stage liver disease (CMS/HCC) IG PROFILE Routine 04/03/2025 10:11 AM EDT End-stage liver disease (CMS/HCC) SMOOTH MUSCLE ANTIBODY, IGG TITER (SO) Routine 04/03/2025 10:11 AM EDT End-stage liver disease (CMS/HCC) ALPHA 1 ANTITRYPSIN PHENOTYPE(INCLUDES [id number])SO (SO) Routine 04/03/2025 10:11 AM EDT End-stage liver disease (CMS/HCC) PAIN MANAGEMENT, QUANTITATIVE URINE DRUG TESTING Routine 04/03/2025 8:09 AM EDT End-stage liver disease (CMS/HCC) COMPREHENSIVE URINE DRUG SCREENING,QUALITATIVE ASSAY, >= 27 DRUG CLASSES Routine 04/03/2025 8:09 AM EDT End-stage liver disease (CMS/HCC) PAIN MANAGEMENT, QUANTITATIVE URINE DRUG TESTING Routine 04/03/2025 8:09 AM EDT End-stage liver disease (CMS/HCC) ALCOHOL, URINE Routine 04/03/2025 8:09 AM EDT End-stage liver disease (CMS/HCC) ABO/RH Routine 04/03/2025 6:38 AM EDT End-stage liver disease (CMS/HCC) ALPHA FETOPROTEIN, SERUM Routine 04/03/2025 6:38 AM EDT End-stage liver disease (CMS/HCC) CBC W/O DIFFERENTIAL Routine 04/03/2025 6:38 AM EDT End-stage liver disease (CMS/HCC) COMPREHENSIVE METABOLIC PANEL, PLASMA Routine 04/03/2025 6:38 AM EDT End-stage liver disease (CMS/HCC) PROTHROMBIN TIME(PT) / INR Routine 04/03/2025 6:38 AM EDT End-stage liver disease (CMS/HCC) NICOTINE AND COTININE METABOLITE, SERUM, QUANTITATIVE Routine 04/03/2025 6:38 AM EDT End-stage liver disease (CMS/HCC) HEPATITIS C ANTIBODY W/REFLEX TO HCV QUANT PCR Routine 04/03/2025 6:38 AM EDT End-stage liver disease (CMS/HCC) HEPATITIS B SURFACE ANTIGEN Routine 04/03/2025 6:38 AM EDT End-stage liver disease (CMS/HCC) HEPATITIS B SURFACE ANTIBODY, QUANTITATIVE Routine 04/03/2025 6:38 AM EDT End-stage liver disease (CMS/HCC) HEPATITIS A ANTIBODY IGG Routine 04/03/2025 6:38 AM EDT End-stage liver disease (CMS/HCC) PROTHROMBIN TIME(PT) / INR Routine 02/27/2025 ALBUMIN, PLASMA Routine 02/26/2025 TOTAL BILIRUBIN, PLASMA Routine 02/26/2025 CREATININE, PLASMA Routine 02/26/2025 SODIUM, PLASMA Routine 02/26/2025 MR NEURO OUTSIDE IMAGES 02/21/20 25 1:19 PM EDT XR OUTSIDE IMAGES 02/12/2025 2:5 0 PM EDT XR MSK OUTSIDE IMAGES 02/12/2025 2:49 PM EDT HEMOGLOBIN A1C Routine 12/13/2020 2:13 PM EDT COLONOSCOPY 06/18/2020 HIV 1/2 ANTIBODY/ANTIGEN SCREEN WITH REFLEX TO HIV I/II DIFFERENTIATION Routine 09/08/2019 1:59 PM EST from Last 3 Months or Most Recently Relevant to Health Maintenance Results * ANTI-SP100 AND ANTI-GP210 ANTIBODIES, IGG (SO) (04/03/2025 10:11 AM EDT) ANTI-GP210 ANTIBODY, IGG 1.3 0.0 - 24.9 Units 04/05/2025 11:22 PM EDT [facility] ([facility]) ANTI-SP100 ANTIBODY, IGG 1.4 0.0 - 24.9 Units 04/05/2025 11:22 PM EDT [facility] ([facility]) Serum 04/03/2025 10:1 1 AM EDT 04/03/2025 2:14 PM EDT Narrative [facility] ([facility]) - 04/05/2025 11:22 PM EDT REFERENCE INTERVAL: Anti-sp100 Antibody, IgG 20.0 Units or less........Negative 20.1-24.9 Units...........Equivocal 25.0 Units or greater.....Positive SP100 IgG antibodies can be detected in patients with primary biliary cholangitis (PBC) and may be of diagnostic relevance in a subset of patients with PBC who are negative for anti-mitochondrial antibodies (AMA). These antibodies have a relatively low sensitivity with excellent specificity for PBC. A negative result does not rule out PBC. REFERENCE INTERVAL: Anti-gp210 Antibody, IgG 20.0 Units or less........Negative 20.1-24.9 Units...........Equivocal 25.0 Units or greater.....Positive GP210 IgG antibodies can be detected in patients with primary biliary cholangitis (PBC) and may be of diagnostic relevance in a subset of patients with PBC who are negative for anti-mitochondrial antibodies (AMA). These antibodies have a relatively low sensitivity with excellent specificity for PBC. A negative result does not rule out PBC. Performed By: [facility] [address] [place] [id number] Noc Analyst: Kiel Mayfield MD, PhD CLIA Number: [id number] Nj Johns MD LAB REF LAB BLOOD AND FLUID OR D Final Result [facility] ([facility]) [address] [place] [id number] * [id number] Enzyme Conc and Phenotype (SO) (04/03/2025 10:11 AM EDT) ALPHA 1 ANTITRYPSIN 131 90 - 200 mg/dL 04/05/2025 10:42 PM EDT [facility] ([facility]) A1A Phenotype M1Z 04/05/2025 10:42 PM EDT [facility] ([facility]) Blood Venous blood specimen / Unknown Venipuncture / Unknown 04/03/2025 10:11 AM EDT 04/03/2025 10:41 AM EDT Narrative [facility] ([facility]) - 04/05/2025 10:42 PM EDT To convert [...] within the previous 21 days. Performed By: [facility] [address] [place] [address] Noc Analyst: Kiel Mayfield MD, PhD CLIA Number: [id number] Nj Johns MD LAB BLOOD ORDERABLES Final Res ult Performing Organization Address City/[facility]/ZIP Co de Phone Number [facility] ([facility]) [address] [place] [address] * (ABNORMAL) IG Profile (04/03/2025 10:11 AM EDT) IGA 838(H) 75 - 400 mg/dL 04/03/2025 11:38 AM EDT [facility] IGG 1,747(H) 720 - 1,589 mg/dL 04/03/2025 11:38 AM EDT [facility] IGM 197 35 - 225 mg/dL 04/03/2025 11:38 AM EDT [facility] Blood Venous blood specimen / Unknown Venipuncture / Unknown 04/03/2025 10:11 AM EDT 04/03/2025 10:41 AM EDT Nj Johns MD LAB BLOOD ORDERABLES Final Res ult [facility] [address] [place] [address] * (ABNORMAL) Anti-smooth muscle antibody, IgG (04/03/2025 10:11 AM EDT) Smooth Muscle Ab, IgG Titer 1:20(H) <1:20 04/05/2025 8:18 PM EDT [facility] ([facility]) Blood Venous blood specimen / Unknown Venipuncture / Unknown 04/03/2025 10:11 AM EDT 04/03/2025 10:41 AM EDT Narrative [facility] ([facility]) - 04/05/2025 8:18 PM EDT INTERPRETIVE INFORMATION: Smooth Muscle Ab, IgG Titer Less than 1:20 ........ Negative - No antibody detected. 1:20 - 1:80 .......... Weak Positive - Suggest repeat in two to three weeks with fresh specimen. 1:160 or greater ...... Positive - Suggestive of autoimmune hepatitis or chronic active hepatitis. Performed By: [facility] [address] [place] [address] Noc Analyst: Kiel Mayfield MD, PhD CLIA Number: [id number] Nj Johns MD LAB BLOOD ORDERABLES Final Res ult Performing Organization Address [facility] de Phone Number [facility] ([facility]) [address] [place] [address] * (ABNORMAL) Mitochondrial M2 Antibody, IgG (CRISTAL) (04/03/2025 10:11 AM EDT) MITOCHONDRIA M2 AB IGG 29.3(H) 0.0 - 24.9 Units 04/05/2025 11:23 AM EDT [facility] ([place]) Serum Venous blood specimen / Unknown 04/03/2025 10:11 AM EDT 04/03/2025 10:41 AM EDT Narrative [facility]) - 04/05/2025 11:23 AM EDT REFERENCE INTERVAL: [...] does not rule out PBC. Performed By: [facility] [address] [place] [address] Noc Analyst: Kiel Mayfield MD, PhD CLIA Number: [id number] Nj Johns MD LAB BLOOD ORDERABLES Final Res ult Performing Organization Address [facility]/State/ZIP Co de Phone Number [facility]) [address] [place] [address] * (ABNORMAL) Pain Management, Quantitative Urine Drug Testing (04/03/2025 8:09 AM EDT) [facility] [place] Alprazolam <20 <20 ng/mL 04/06 5:18 PM EDT [facility] [place] Midazolam <20 <20 ng/mL 2024 5:18 PM EDT [facility] [place] Triazolam <20 <20 ng/mL 2024 5:18 PM EDT [facility] Alprazolam <10 <10 ng/mL 04/06/2025 5:18 PM EDT [facility] Aminoclonazepam <20 <20 ng/mL 5:18 PM EDT [facility] Amphetamine <50 <50 ng/mL 04/06/2025 5:18 PM EDT [facility] Benzoylecgonine <50 <50 ng/mL 5:18 PM EDT [facility] Buprenorphine <10 <10 ng/mL 04/06/2025 5:18 PM EDT [facility] Buprenorphine Glucuronide <50 <50 ng/mL 04/06/2025 5:18 PM EDT [facility] Butalbital <50 <50 ng/mL 04/06/2025 5:18 PM EDT [facility] 9 Carboxy THC <10 <10 ng/mL 04/06/2025 5:18 PM EDT [facility] 9 Carboxy THC Glucuronide <25 <25 ng/mL 04/06/2025 5:18 PM EDT [facility] Clonazepam <10 <10 ng/mL 04/06/2025 5:18 PM EDT [facility] Codeine <50 <50 ng/mL 04/06/2025 5:18 PM EDT [facility] Codeine Glucuronide <50 <50 ng/mL 04/06 5:18 PM EDT [facility] Cyclobenzaprine <50 <50 ng/mL 5:18 PM EDT [facility] Desmethyl Tramadol <50 <50 ng/mL 2024 5:18 PM EDT [facility] Diazepam <10 <10 ng/mL 04/06/2025 5:18 PM EDT [facility] EDDP - Methadone Metabolite <50 <50 ng/mL 04/06/2025 5:18 PM EDT [facility] Fentanyl <1 <1 ng/mL 04/06/2025 5:18 PM EDT [facility] Hydrocodone <50 <50 ng/mL 04/06/2025 5:18 PM EDT [facility] Hydromorphone <50 <50 ng/mL 04/06/2025 5:18 PM EDT [facility] Hydromorphone Glucuronide <50 <50 ng/mL 04/06/2025 5:18 PM EDT [facility] Lorazepam <20 <20 ng/mL 04/06/2025 5:18 PM EDT [facility] Lorazepam Glucuronide <50 <50 ng/mL 04/06/2025 5:18 PM EDT [facility] MDA <50 <50 ng/mL 04/06/2025 5:18 PM EDT [facility] MDMA <50 <50 ng/mL 04/06/2025 5:18 PM EDT [facility] Meperidine <50 <50 ng/mL 04/06/2025 5:18 PM EDT [facility] Methadone <50 <50 ng/mL 04/06/2025 5:18 PM EDT [facility] Methamphetamine <50 <50 ng/mL 5:18 PM EDT [facility] Methylphenidate <50 <50 ng/mL 5:18 PM EDT [facility] 6 Monoacetyl morphine <10 <10 ng/mL 04/06/2025 5:18 PM EDT [facility] Morphine <50 <50 ng/mL 04/06/2025 5:18 PM EDT [facility] Morphine Glucuronide <50 <50 ng/mL 03/13 5:18 PM EDT [facility] Naloxone <50 <50 ng/mL 04/06/2025 5:18 PM EDT [facility] Naloxone Glucuronide <50 <50 ng/mL 03/13 5:18 PM EDT [facility] Norbuprenorphine <10 <10 ng/mL 04/06/20 5:18 PM EDT [facility] Norbuprenorphine Glucuronide <50 <50 ng/mL 04/06/2025 5:18 PM EDT [facility] Nordiazepam <20 <20 ng/mL 04/06/2025 5:18 PM EDT [facility] Norfentanyl <2 <2 ng/mL 04/06/2025 5:18 PM EDT [facility] Normeperidine <50 <50 ng/mL 04/06/2025 5:18 PM EDT [facility] PCP Quant, Ur <50 <50 ng/mL 04/06/2025 5:18 PM EDT [facility] Phenobarbital <50 <50 ng/mL 04/06/2025 5:18 PM EDT [facility] Oxazepam <20 <20 ng/mL 04/06/2025 5:18 PM EDT [facility] Oxazepam Glucuronide <50 <50 ng/mL 03/13 5:18 PM EDT [facility] Oxycodone 273(H) <50 ng/mL 04/06/2025 5:18 PM EDT [facility] Oxymorphone <50 <50 ng/mL 04/06/2025 5:18 PM EDT [facility] Oxymorphone Glucuronide 64(H) <50 ng/mL 04/06/2025 5:18 PM EDT [facility] Secobarbital <50 <50 ng/mL 04/06/2025 5:18 PM EDT [facility] Tramadol <50 <50 ng/mL 04/06/2025 5:18 PM EDT [facility] Temazepam <20 <20 ng/mL 04/06/2025 5:18 PM EDT [facility] Temazepam Glucuronide <50 <50 ng/mL 04/06/2025 5:18 PM EDT [facility] Urine Urine specimen obtained by clean catch procedure / Unknown Non-blood Collection / Unknown 04/03/2025 8:09 AM EDT 04/03/2025 8:43 AM EDT Narrative [facility] - 04/06/2025 5:18 PM EDT This report is intended for use in clinical monitoring or management of patients. It is NOT intended for use in employment-related drug testing. For pain management, the absence of expected drug(s) and/or drug metabolite(s) may indicate non-compliance, inappropriate timing of specimen collection relative to drug administration, poor drug absorption, or limitations of testing. Interpretive questions should be directed to the laboratory. Test performed by LC-MS/MS at the [facility]. This test was developed and its performance characteristics determined by [facility]. It has not been cleared or approved by the FDA. The laboratory is regulated under CLIA as qualified to perform high-complexity testing. This test is used for clinical purposes. Asael Esteves MD LAB URINE ORDERABLES Final Resul t [facility] [address] [place] [address] * Alcohol Urine (04/03/2025 8:09 AM EDT) Alcohol Urine Negative Negative 04/03/2025 10:25 AM EDT [facility] Urine Urine specimen obtained by clean catch procedure / Unknown Non-blood Collection / Unknown 04/03/2025 8:09 AM EDT 04/03/2025 8:43 AM EDT Narrative [facility] - 04/03/2025 10:25 AM EDT The correlation between urine and serum ethanol concentration is highly variable. Test performed by Gas Chromatography at the [facility]. This test was developed and its performance characteristics determined by [facility]. It has not been cleared or approved by the FDA.The laboratory is regulated under CLIA as qualified to perform high-complexity testing. This test is used for clinical purposes only. The correlation between urine and serum ethanol concentration is highly variable. Test performed by Gas Chromatography at the [facility]. This test was developed and its performance characteristics determined by [facility]. It has not been cleared or approved by the FDA.The laboratory is regulated under CLIA as qualified to perform high-complexity testing. This test is used for clinical purposes only. us Asael Esteves MD LAB URINE ORDERABLES Final Resul t [facility] [address] [place] [address] * (ABNORMAL) Comprehensive Urine Drug Screening, Qualitative Assay, >= 27 Drug Classes (58:09 AM EDT) Acetaminophen Negative Negative 04/04/2025 8:17 AM EDT [facility] Alprazolam Negative Negative 04/04/2025 8:17 AM EDT [facility] Amantadine Negative Negative 04/04/2025 8:17 AM EDT [facility] Amitriptyline Negative Negative 04/04/2025 8:17 AM EDT [facility] Amphetamine Negative Negative 04/04/2025 8:17 AM EDT [facility] Atenolol Negative Negative 04/04/2025 8:17 AM EDT [facility] Benzoylecgonine Negative Negative 8:17 AM EDT [facility] Bisoprolol Negative Negative 04/04/2025 8:17 AM EDT [facility] Bupropion Negative Negative 04/04/2025 8:17 AM EDT [facility] Butalbital Negative Negative 04/04/2025 8:17 AM EDT [facility] Carbamazepine Negative Negative 04/04/2025 8:17 AM EDT [facility] Carisoprodol Negative Negative 04/04/2025 8:17 AM EDT [facility] Chlorpheniramine Negative Negative 04/04/20 8:17 AM EDT [facility] Citalopram Negative Negative 04/04/2025 8:17 AM EDT [facility] Clindamycin Negative Negative 04/04/2025 8:17 AM EDT [facility] Clonidine Negative Negative 04/04/2025 8:17 AM EDT [facility] Clopidogrel / Ticlopidine Negative Negative 04/04/2025 8:17 AM EDT [facility] Cocaethylene Negative Negative 04/04/2025 8:17 AM EDT [facility] Cocaine Negative Negative 04/04/2025 8:17 AM EDT [facility] Codeine Negative Negative 04/04/2025 8:17 AM EDT [facility] Cyclobenzaprine Positive(A) Negative 04/04/20 8:17 AM EDT [facility] Desvenlafaxine Negative Negative 04/04/2025 8:17 AM EDT [facility] Dextromethorphan Negative Negative 04/04/20 8:17 AM EDT [facility] Diazepam Negative Negative 04/04/2025 8:17 AM EDT [facility] Diltiazem Negative Negative 04/04/2025 8:17 AM EDT [facility] Diphenhydramine Negative Negative 8:17 AM EDT [facility] Doxepine Negative Negative 04/04/2025 8:17 AM EDT [facility] Doxylamine Negative Negative 04/04/2025 8:17 AM EDT [facility] EDDP-Methadone metabolite Negative Negative 04/04/2025 8:17 AM EDT [facility] Fentanyl Negative Negative 04/04/2025 8:17 AM EDT [facility] Fluconazole Positive(A) Negative 04/04/2025 8:17 AM EDT [facility] Fluoxetine Negative Negative 04/04/2025 8:17 AM EDT [facility] Guaifenesin Negative Negative 04/04/2025 8:17 AM EDT [facility] Haloperidol Negative Negative 04/04/2025 8:17 AM EDT [facility] Heroin/6-FROYLAN Negative Negative 04/04/2025 8:17 AM EDT [facility] Hydrocodone Negative Negative 04/04/2025 8:17 AM EDT [facility] Hydroxyzine / Cetirizine metabolite Negative Negative 04/04/2025 8:17 AM EDT [facility] Ibuprofen Negative Negative 04/04/2025 8:17 AM EDT [facility] Imipramine Negative Negative 04/04/2025 8:17 AM EDT [facility] Ketamine Negative Negative 04/04/2025 8:17 AM EDT [facility] Labetolol Negative Negative 04/04/2025 8:17 AM EDT [facility] Lamotrigine Negative Negative 04/04/2025 8:17 AM EDT [facility] Levetiracetam Negative Negative 04/04/2025 8:17 AM EDT [facility] Lidocaine Negative Negative 04/04/2025 8:17 AM EDT [facility] MDA Negative Negative 04/04/2025 8:17 AM EDT [facility] MDMA Negative Negative 04/04/2025 8:17 AM EDT [facility] Memantine Negative Negative 04/04/2025 8:17 AM EDT [facility] Meperidine Negative Negative 04/04/2025 8:17 AM EDT [facility] Meprobamate Negative Negative 04/04/2025 8:17 AM EDT [facility] Metaxalone Negative Negative 04/04/2025 8:17 AM EDT [facility] Methamphetamine Negative Negative 8:17 AM EDT [facility] Methocarbamol Negative Negative 04/04/2025 8:17 AM EDT [facility] Methylecgonine Negative Negative 04/04/2025 8:17 AM EDT [facility] Metoclopramide Negative Negative 04/04/2025 8:17 AM EDT [facility] Metoprolol Positive(A) Negative 04/04/2025 8:17 AM EDT [facility] Metronidazole Negative Negative 04/04/2025 8:17 AM EDT [facility] Midazolam Negative Negative 04/04/2025 8:17 AM EDT [facility] Midazolam Metabolite Negative Negative 04/04/2025 8:17 AM EDT [facility] Mirtazapine Negative Negative 04/04/2025 8:17 AM EDT [facility] Misc Test Result Negative Negative 04/04/20 8:17 AM EDT [facility] Naproxen Negative Negative 04/04/2025 8:17 AM EDT [facility] Nefazodone Negative Negative 04/04/2025 8:17 AM EDT [facility] Norfentanyl Negative Negative 04/04/2025 8:17 AM EDT [facility] Nortriptyline Negative Negative 04/04/2025 8:17 AM EDT [facility] Ordanstron Negative Negative 04/04/2025 8:17 AM EDT [facility] Oxcarbazepine Negative Negative 04/04/2025 8:17 AM EDT [facility] Oxycodone Positive(A) Negative 04/04/2025 8:17 AM EDT [facility] Paroxethine Negative Negative 04/04/2025 8:17 AM EDT [facility] Phenobarbital Negative Negative 04/04/2025 8:17 AM EDT [facility] Phentermine Negative Negative 04/04/2025 8:17 AM EDT [facility] Phenytoin Negative Negative 04/04/2025 8:17 AM EDT [facility] Primidone Negative Negative 04/04/2025 8:17 AM EDT [facility] Promethazine Negative Negative 04/04/2025 8:17 AM EDT [facility] Propofol Negative Negative 04/04/2025 8:17 AM EDT [facility] Propranolol Negative Negative 04/04/2025 8:17 AM EDT [facility] Quetiapine Negative Negative 04/04/2025 8:17 AM EDT [facility] Quinine Negative Negative 04/04/2025 8:17 AM EDT [facility] Rantidine Negative Negative 04/04/2025 8:17 AM EDT [facility] Sertraline Negative Negative 04/04/2025 8:17 AM EDT [facility] Spironolactone Positive(A) Negative 8:17 AM EDT [facility] Tizanidine Negative Negative 04/04/2025 8:17 AM EDT [facility] Topiramate Negative Negative 04/04/2025 8:17 AM EDT [facility] Tramadol Negative Negative 04/04/2025 8:17 AM EDT [facility] Trazadone/ Trazadone metabolite Negative Negative 04/04/2025 8:17 AM EDT [facility] Trimethoprim Negative Negative 04/04/2025 8:17 AM EDT [facility] Valproic Acid Negative Negative 04/04/2025 8:17 AM EDT [facility] Venlafaxine Negative Negative 04/04/2025 8:17 AM EDT [facility] Verapamil Negative Negative 04/04/2025 8:17 AM EDT [facility] Zolpidem Negative Negative 04/04/2025 8:17 AM EDT [facility] Xylazine Negative Negative 04/04/2025 8:17 AM EDT [facility] Urine Urine specimen obtained by clean catch procedure / Unknown Non-blood Collection / Unknown 04/03/2025 8:09 AM EDT 04/03/2025 8:43 AM EDT us Asael Esteves MD LAB URINE ORDERABLES Final Resul t Performing Organization Address [facility] Co de Phone Number [facility] [address] [place] [address] * HEPATITIS B SURFACE ANTIBODY, QUANTITATIVE (04/03/2025 6:38 AM EDT) Hepatitis B Surface Antibody, Quantitative <8.00 NonReactiv e: <8, Grayzone: 8 - <12, Reactive: >= 12 mIU/mL 04/03/2025 8:47 AM EDT [facility] Comment: Nonreactive. Individual is considered not immune to HBV infection. Blood Venous blood specimen / Unknown Venipuncture / Unknown 04/03/2025 6:38 AM EDT 04/03/2025 7:02 AM EDT us Asael Esteves MD LAB BLOOD ORDERABLES Final Resul t [facility] [address] [place] [address] * Alpha fetoprotein, serum (04/03/2025 6:38 AM EDT) Alpha Fetoprotein, Serum 6.5 <10.0 ng/mL 04/03/2025 7:38 AM EDT [facility] Blood Venous blood specimen / Unknown Venipuncture / Unknown 04/03/2025 6:38 AM EDT 04/03/2025 7:02 AM EDT Narrative [facility] - 04/03/2025 7:38 AM EDT Performed by [employer] electrochemiluminescent immunoassay which is traceable to the 1st [facility] WHO Reference standard 72/255. Results obtained with different test methods or kits cannot be used interchangeably. us Asael Esteves MD LAB BLOOD ORDERABLES Final Resul t Performing Organization Address City/[facility]/ZIP Co de Phone Number [facility] [address] [place] [address] * Hepatitis A Antibody IgG (04/03/2025 6:38 AM EDT) Hepatitis A Antibody IgG Negative Negative 04/03/2025 8:47 AM EDT [facility] Blood Venous blood specimen / Unknown Venipuncture / Unknown 04/03/2025 6:38 AM EDT 04/03/2025 7:02 AM EDT us Asael Esteves MD LAB BLOOD ORDERABLES Final Resul t Performing Organization Address [facility] [place] [place] [address] * Hepatitis C Antibody (04/03/2025 6:38 AM EDT) Hepatitis C Antibody Negative Negative 04/03/2025 7:44 AM EDT [facility] Blood Venous blood specimen / Unknown Venipuncture / Unknown 04/03/2025 6:38 AM EDT 04/03/2025 7:02 AM EDT us Asael Esteves MD LAB BLOOD ORDERABLES Final Resul t Performing Organization Address [facility] [place] [place] [address] * (ABNORMAL) Nicotine Cotinine Metabolite (04/03/2025 6:38 AM EDT) NICOTINE <5 <5 ng/mL 04/04/2025 9:5 4 AM EDT [facility] Cotinine 32(H) <5 ng/mL 04/04/2025 9:5 4 AM EDT [facility] Blood Venous blood specimen / Unknown Venipuncture / Unknown 04/03/2025 6:38 AM EDT 04/03/2025 7:02 AM EDT Narrative [facility] - 04/04/2025 9:54 AM EDT Testing performed by LC-MS/MS at the [facility]. This test was developed and its performance characteristics determined by [facility]. This assay has not been cleared by the FDA. The laboratory is regulated under CLIA as qualified to perform high-complexity testing. This test is used for clinical purposes. us Asael Esteves MD LAB BLOOD ORDERABLES Final Resul t Performing Organization Address [facility] Co de Phone Number [facility] [address] [place] [address] * ABO/Rh (04/03/2025 6:38 AM EDT) ABO/Rh A Positive 04/03/2025 8:00 AM EDT [facility] Blood Venous blood specimen / Unknown Venipuncture / Unknown 04/03/2025 6:38 AM EDT 04/03/2025 8:00 AM EDT us Asael Esteves MD LAB BLOOD BANK TEST ORDERABLES F inal Result Performing Organization Address [facility] Co de Phone Number [facility] BANK [address] [place] [address], * Hepatitis B Surface Antigen (04/03/2025 6:38 AM EDT) Hepatitis B Surf Antigen Negative Negative 04/03/2025 8:47 AM EDT [facility] Blood Venous blood specimen / Unknown Venipuncture / Unknown 04/03/2025 6:38 AM EDT 04/03/2025 7:02 AM EDT us Asael Esteves MD LAB BLOOD ORDERABLES Final Resul t Performing Organization Address City/[facility] Co de Phone Number [facility] [address] [place] [address] * (ABNORMAL) Protime-INR (04/03/2025 6:38 AM EDT) Only the most recent of2 resultswithin the time period is included. Prothrombin Time 16.3(H) 12.0 - 14.3 sec LAB COAGULATION METHOD 04/03/2025 7:24 AM EDT [facility] INR 1.3(H) 0.9 - 1.1 LAB COAGULATION METHOD 04/03/2025 7:24 AM EDT [facility] Blood Venous blood specimen / Unknown Venipuncture / Unknown 04/03/2025 6:38 AM EDT 04/03/2025 7:02 AM EDT Narrative [facility] - 04/03/2025 7:24 AM EDT OPTIMAL INR RANGES FOR PATIENT ON ORAL ANTICOAGULANT THERAPY Prevention of venous thromboembolism INR 2.0 to 3.0 In patients with heart disease: Atrial fibrillation INR 2.0 to 3.0 Valvular heart disease INR 2.0 to 3.0 Tissue heart valves INR 2.0 to 3.0 Mechanical prosthetic valves INR 2.5 to 3.5 Prevention of recurrent FL INR 2.5 to 3.5 Asael Esteves MD LAB BLOOD ORDERABLES Final Resul t Performing Organization Address [facility] Co de Phone Number [facility] [address] [place] [address] * (ABNORMAL) Hemogram (CBC) (04/03/2025 6:38 AM EDT) WBC Count 9.16 3.70 - 10.30 10*3/uL LAB HEMATOLOGY METHOD 04/03/2025 8:35 AM EDT [facility] RBC Count 4.07 3.90 - 5.20 10*6/uL LAB HEMATOLOGY METHOD 04/03/2025 8:35 AM EDT [facility] HGB 13.6 11.2 - 15.7 g/dL LAB HEMATOLOGY METHOD 04/03/2025 8:35 AM EDT [facility] HCT 41.4 34.0 - 45.0 % LAB HEMATOLOGY METHOD 04/03/2025 8:35 AM EDT [facility] Platelet Count 87(L) 155 - 369 10*3/uL LAB HEMATOLOGY METHOD 04/03/2025 8:35 AM EDT [facility] MCV 102(H) 79 - 98 fL LAB HEMATOLOGY METHOD 04/03/2025 8:35 AM EDT [facility] MCH 33.4(H) 26.0 - 32.0 pg LAB HEMATOLOGY METHOD 04/03/2025 8:35 AM EDT [facility] MCHC 32.9 30.7 - 35.5 g/dL LAB HEMATOLOGY METHOD 04/03/2025 8:35 AM EDT [facility] RDW 15.0(H) 11.5 - 14.5 % LAB HEMATOLOGY METHOD 04/03/2025 8:35 AM EDT [facility] MPV 9.7 8.8 - 12.5 fL LAB HEMATOLOGY METHOD 04/03/2025 8:35 AM EDT [facility] nRBC 0.0 <=0.0 per 100 WBCs LAB HEMATOLOGY METHOD 04/03/2025 8:35 AM EDT [facility] Blood Venous blood specimen / Unknown Venipuncture / Unknown 04/03/2025 6:38 AM EDT 04/03/2025 7:02 AM EDT us Asael Esteves MD LAB BLOOD ORDERABLES Final Resul t [facility] [address] [place] [address] * (ABNORMAL) Comprehensive metabolic panel (04/03/2025 6:38 AM EDT) Glucose, Plasma 164(H) 74 - 99 mg/dL 04/03/2025 7:31 AM EDT [facility] BUN, Plasma 19 7 - 21 mg/dL 04/03/2025 7:31 AM EDT [facility] Creatinine, Plasma 0.98 0.60 - 1.10 mg/dL 04/03/2025 7:31 AM EDT [facility] BUN/Creatinine Ratio 19 04/03/2025 7:31 AM EDT [facility] Sodium, Plasma 133(L) 136 - 145 mmol/L 04/03/2025 7:31 AM EDT [facility] Potassium, Plasma 4.9 3.6 - 4.9 mmol/L 04/03/2025 7:31 AM EDT [facility] Chloride, Plasma 100 97 - 107 mmol/L 04/03/2025 7:31 AM EDT [facility] CO2, Plasma 23 22 - 29 mmol/L 04/03/2025 7:31 AM EDT [facility] Anion Gap 10 6 - 16 mmol/L 04/03/2025 7:31 AM EDT [facility] Total Calcium, Plasma 9.5 8.9 - 10.2 mg/dL 04/03/2025 7:31 AM EDT [facility] Total Protein 7.0 6.3 - 7.9 g/dL 04/03/2025 7:31 AM EDT [facility] Albumin, Plasma 3.4(L) 3.5 - 5.2 g/dL 04/03/2025 7:31 AM EDT [facility] AST, Plasma 74(H) 10 - 35 U/L 04/03/2025 7:31 AM EDT [facility] ALT, Plasma 54(H) 10 - 35 U/L 04/03/2025 7:31 AM EDT [facility] Alkaline Phosphatase, Plasma 264(H) 35 - 104 U/L 04/03/2025 7:31 AM EDT [facility] Total Bilirubin, Plasma 2.0(H) 0.2 - 1.1 mg/dL 04/03/2025 7:31 AM EDT [facility] eGFRcr 68.3 mL/min/1.7 3m*2 04/03/2025 7:31 AM EDT [facility] Comment:Reported eGFRcr in m L/min/1.73m2 is based the CKD-EPI 2020 equation that does not use a race coefficient. Blood Venous blood specimen / Unknown Venipuncture / Unknown 04/03/2025 6:38 AM EDT 04/03/2025 7:01 AM EDT us Asael Esteves MD LAB BLOOD ORDERABLES Final Resul t [facility] [address] [place] [address] * Creatinine, Plasma (02/26/2025) External Creatinine Blood 0.7 mg/dL Blood Venous blood specimen / Unknown 02/26/2025 Result [facility] Provider LAB BLOOD ORDERABLES Final R esult * Sodium, Plasma (02/26/2025) External Sodium 133 mmol/L Blood Venous blood specimen / Unknown 02/26/2025 Result [facility] Provider LAB BLOOD ORDERABLES Final R esult * Total Bilirubin, Plasma (02/26/2025) External Bilirubin Total 2.5 mg/dL Blood Venous blood specimen / Unknown 02/26/2025 Result [facility] Provider LAB BLOOD ORDERABLES Final R esult * Albumin, Plasma (02/26/2025) External Albumin 3.1 g/dL Blood Venous blood specimen / Unknown 02/26/2025 Result [facility] Provider LAB BLOOD ORDERABLES Final R esult * MR NEURO OUTSIDE IMAGES (02/20/2025 1:19 PM EDT) Anatomical Region Laterality Modality Magnetic Resonan ce 02/20/2025 1:19 PM EDT External Provider IMG MRI PROCEDURES Final Resul t * XR OUTSIDE IMAGES (02/12/2025 2:50 PM EDT) Anatomical Region Laterality Modality Radiographic Zayda ging 02/12/2025 2:50 PM EDT External Provider IMG XR PROCEDURES Final Result * XR MSK OUTSIDE IMAGES (02/12/2025 2:49 PM EDT) Anatomical Region Laterality Modality Radiographic Zayda ging 02/12/2025 2:49 PM EDT External Provider IMG XR PROCEDURES Final Result * (ABNORMAL) Hemoglobin A1c (12/13/2020 2:13 PM [...] <6.0% Children and Adolescents <7.5% . Source: [place] [employer]. Standards of medical care in diabetes, 2017. Diabetes Care.2017:40 (suppl 1):S1-S135. . HbA1c assay performed by an ion-exchange chromatography method that is certified traceable to the DCCT. 12/13/2020 2:13 PM EDT 12/13/2020 3:27 PM EDT Dori Gao APRN, DNP LAB BLOOD ORDERABLES Final Result [facility] * COLONOSCOPY (06/18/2020) Anatomical Region Laterality Modality Endoscopy Narrative 06/18/2020 Ordered by an unspecified provider. Historical Provider GI PROCEDURE ORDERABLES Jennifer l Result * HIV 1 & 2 Antibody/Antigen Screen (09/08/2019 1:59 PM EST) HIV 1 Result NONREACTIVE Screening for HIV 1 and 2 antibodies is NONREACTIVE. No confirmatory testing is required. [facility] 09/08/2019 1:59 PM EST 09/08/2019 2:32 PM EST Dori Armstrongbent [employer]IM STENCIL [employer]KER, DNP LAB BLOOD ORDERABLES Final Result [employer] from Last 3 Months or Most Recently Relevant to Health Maintenance Insurance [id number] [id number] [employer] MED[employer]ID [employer]ID Care Teams Billing Coordinator Relationship Specialty Start Date End Date Trevor Rolon DO [address] [facility] [address] [place] [address] PCP - General 11/22/20 Mc Grant DO [address] [facility] [address] [place] [address] Referring Physician Gastroenterology 02/21/24 El Agarwal APRN [address] [place] [address] Referring Physician Gastroenterology 03/21/25
--- OUTSIDE RECORDS SUMMARY | 2025-04-11 14:05 | XMS_ITS | Encounter Summary ---
Author Organization [facility] nter Address [address] [place] [address] Care Team Providers Care Button Riveter Name Role Phone Trevor Rolon DO Primary Care Provider Lucy Christopher DO Unavailable Encounter Details Date Type Department Care Team (Late st Contact Info) Description 02/25/2023 Orders Only [facility] [address] Clinic [place] [id number] Brigitte Mahoney, CLAU [address] [place] [address] Social History Tobacco Use Types [...] How often do you attend chur or oriental orthodox services? More than 4 times per year 07/24/2022 Do you belong to any clubs o r organizations such as lutheran groups, unions, fraternal or athletic groups, or [...] Recorded Patient Health Questionnaire-2 Score 0 07/24/2022 [facility] of Occupat [...] ULTRASOUND [address] [place] [phone] 05/07/2025 3:00 PM EDT Appointment [facility] D [address], [place] [address] 06/18/2025 10:30 AM EST Office Visit [facility] [address] [place] [address] 06/27/2025 10:00 AM EST Office Visit [facility] [address], Tommy jakub [place] [address] Marcelina Hyde NP [address] [place] [address] 08/16/2025 10:00 AM EST Office Visit [facility] [address] [place] [address] Brigitte Mahoney NP [address] [place] [place] [address] 09/18/2025 1:30 PM EDT Office Visit [facility] [address] [place] [address] Suman Treviño MD [address] [facility]. [place] [address] 12/13/2025 11:00 AM EDT Office Visit [facility] [address] [place] [address] Janice Woodward NP [address] [place] [address] documented as of this encounter Visit Diagnoses Not on filedocumented in this encounter Additional Health Concerns Assessment Noted Time PHQ-9 Depression Total Score: 0 07/24/19 23 3:00 PM EST documented as of this encounter Care Teams Button Riveter Relationship Specialty Start Date End Date Trevor Rolon DO [address] [facility] [address] [place] [address] PCP - General Lucy Christopher DO [facility] [place] [address] Consulting Physician Oncology 10/17/24 documented as of this encounter
--- OUTSIDE RECORDS SUMMARY | 2025-04-11 14:05 | XMS_ITS | Encounter Summary ---
Author Organization [facility] Address [address] [place] [address] Care Team Providers Care Websphere Architect Name Role Phone Trevor Rolon DO Primary Care Provider [phone] Mc Grant DO Unavailable [phone] El Agarwal MOTION PICTURE FILM EXAMINER Unavailable [phone] Encounter Details Date Type Department Care Team (Late st Contact Info) Description 01/06/2023 Orders Only External Location [address] [place] [address] Provider, External Social History Tobacco Use Types [...] Info) Description 05/14/2025 2:00 PM EST Appointment [facility] [address] [place] [phone] 05/18/2025 9:15 AM EST Clinical Support [facility] [address] [place] [address] 05/18/2025 9:30 AM EST Clinical Support [facility] [address] [place] [address] CH - CLINICAL NUTRITION [address] [place] [address] 05/18/2025 10:50 AM EST Office Visit [facility] [address] [address] Nj Johns MD [address] [place] [address] 05/18/2025 11:30 AM EST Social Work [facility] [address] [place] [address] Thuy Dasilva, [place] [address] 05/18/2025 1:00 PM EST Appointment [facility] [address] [place] [address] 05/18/2025 1:30 PM EST Appointment [facility] [address], 1st Floor Wing C [place] [address] 05/18/2025 1:30 PM EST Appointment [facility] [address], 1st Floor Wing C [place] [address] 05/18/2025 2:00 PM EST Pharmacist Visit [facility] [address] [place] [address] 05/22/2025 11:15 AM EST Consult [facility] [address], 1st Floor Wing C [place] [address] Nigel Recinos MD [address] [address] 05/25/2025 11:30 AM EST Appointment [facility] [address] [place] [address] 05/25/2025 2:00 PM EST Appointment [facility] Pulmonary Function Testing [address] [place] [address] 05/25/2025 3:30 PM EST Appointment Cardiac Imaging [address] [place] [address] 05/31/2025 4:30 PM EST Appointment [facility] [address] [place] [address] 06/20/2025 10:30 AM EST Procedure Visit [place] [facility] [address], 1st [place] [address] Claire Davidson MD [address] [address] 06/21/2025 2:00 PM EST Office Visit [facility] [address] [facility], [address] [place] [address] Claire Davidson MD [address] [address] documented as of this encounter [...] documented as of this encounter Care Teams Websphere Architect Relationship Specialty Start Date End Date Trevor Rolon DO [address] [address] PCP - General 11/22/20 Mc Grant DO [address] [address] Referring Physician Gastroenterology 02/21/24 El Agarwal APRN [address] [place] [address] Referring Physician Gastroenterology 03/21/25 documented as of this encounter
--- OUTSIDE RECORDS SUMMARY | 2025-04-11 14:05 | XMS_ITS | Encounter Summary ---
Author Organization [facility] nter Address [address] [place] [address] Care Team Providers Care Product Marketing Director Name Role Phone Trevor Rolon DO Primary Care Provider Lucy Christopher DO Unavailable Reason for Visit * Reason Comments Med Refill Encounter Details Date Type Department Care Team (Late st Contact Info) Description 07/08/2024 Refill [facility] ENDOCRINOLOGY PRACTICE [address], 8th Floor Clinic [place] [phone] Brigitte Mahoney, CLAU [address] [place] [address] Social History Tobacco Use Types [...] Recorded Patient Health Questionnaire-2 Score 0 09/28/2023 [facility] of Occupat ional Health - Occupational Stress [...] ULTRASOUND [address], 2nd [place] [address] 05/07/2025 3:00 PM EDT Appointment [facility] BLDG D [address], [place] [address] 06/18/2025 10:30 AM EST Office Visit [facility] GASTROENTEROLOGY PRACTICE [address], 2nd Floor [place] [address] 06/27/2025 10:00 AM EST Office Visit [facility] SLEEP LAB PRACTICE [address], [facility] [place] [address] Marcelina Hyde NP [address] [place] [address] 08/16/2025 10:00 AM EST Office Visit [facility] ENDOCRINOLOGY PRACTICE [address], 8th [place] [address] Brigitte Mahoney NP [address] [place] [address] 09/18/2025 1:30 PM EDT Office Visit [facility] RHEUMATOLOGY PRACTICE [address], 8th [place] [address] Suman Treviño MD [address] [facility]. [place] [phone] 12/13/2025 11:00 AM EDT Office Visit [facility] OBGYN PRACTICE [address], 7th [place] [address] Janice Woodward NP [address] [place] [address] documented as of this encounter Visit Diagnoses Not on filedocumented in this encounter Additional Health Concerns Assessment Noted Time PHQ-9 Depression Total Score: 0 07/24/19 23 3:00 PM EST documented as of this encounter Care Teams Product Marketing Director Relationship Specialty Start Date End Date Trevor Rolon DO [address] [facility] [address] [place] [address] PCP - General Lucy Christopher DO [address] [place] [address] Consulting Physician Oncology 10/17/24 documented as of this encounter
--- OUTSIDE RECORDS SUMMARY | 2025-04-11 14:05 | XMS_ITS | Encounter Summary ---
Author Organization [facility] Address [address] [place] [address] Care Team Providers Care Technology Administrator Name Role Phone Trevor Rolon DO Primary Care Provider [phone] Mc Grant DO Unavailable [phone] El Agarwal ACCOUNTING MACHINE OPERATOR Unavailable [phone] Encounter Details Date Type Department Care Team (Late st Contact Info) Description 10/24/2023 Orders Only External Location [address] [place] [address] Provider, External Social History Tobacco Use Types [...] Info) Description 05/14/2025 2:00 PM EST Appointment [facility] [address] [place] [address] 05/18/2025 9:15 AM EST Clinical Support [facility] [address] [place] [address] 05/18/2025 9:30 AM EST Clinical Support [facility] [address] [place] [place] [address] CH - CLINICAL NUTRITION [address] [place] [address] 05/18/2025 10:50 AM EST Office Visit [facility] [address] [place] [address] Nj Johns MD [address] [place] [address] 05/18/2025 11:30 AM EST Social Work [facility] [address] [place] [address] Thuy Dasilva, [place] [address] 05/18/2025 1:00 PM EST Appointment [facility] [address] [place] [address] 05/18/2025 1:30 PM EST Appointment [facility] [address], 1st Floor Wing [place] [address] 05/18/2025 1:30 PM EST Appointment [place] [facility] [address], 1st Floor Wing C [place] [address] 05/18/2025 2:00 PM EST Pharmacist Visit [facility] [address] [place] [address] 05/22/2025 11:15 AM EST Consult [facility] [address], 1st Floor Wing C [place] [address] Nigel Recinos MD [address] [address] 05/25/2025 11:30 AM EST Appointment [facility] [address] [place] [address] 05/25/2025 2:00 PM EST Appointment [facility] Pulmonary Function Testing [address] [place] [address] 05/25/2025 3:30 PM EST Appointment Cardiac Imaging [address] [place] [address] 05/31/2025 4:30 PM EST Appointment [facility] [address] [place] [address] 06/20/2025 10:30 AM EST Procedure Visit [place] [facility] [address], 1st [place] [address] Claire Davidson MD [address] [address] 06/21/2025 2:00 PM EST Office Visit [facility] [address] [facility], [address] [place] [address] Claire Davidson MD [address] [address] documented as of this encounter [...] documented as of this encounter Care Teams Technology Administrator Relationship Specialty Start Date End Date Trevor Rolon DO [address] [facility] 201 [place] [address] PCP - General 11/22/20 Mc Grant DO [address] [facility] 201 [place] [address] Referring Physician Gastroenterology 02/21/24 El Agarwal APRN [address] [place] [address] Referring Physician Gastroenterology 03/21/25 documented as of this encounter
--- OUTSIDE RECORDS SUMMARY | 2025-04-11 14:05 | XMS_ITS | Encounter Summary ---
Author Organization [facility] Address [address] [place] [address] Care Team Providers Care Supervisor Assembly Name Role Phone Trevor Rolon DO Primary Care Provider [phone] Mc Grant DO Unavailable [phone] Encounter Details Date Type Department Care Team (Latest Contact Info) Description 03/08/2025 Travel Social History Tobacco Use Types Packs/Day [...] Sommer Rangel documented as of this encounter Plan of Treatment Upcoming Encounters Date Type Department Care Team (Late st Contact Info) Description 05/14/2025 2:00 PM EST Appointment [facility] MRI [address] [facility] [place] [address] 05/18/2025 9:15 AM EST Clinical Support [facility] [address] [facility] [address] [place] [address] 05/18/2025 9:30 AM EST Clinical Support [facility] [address] [facility] [address] [place] [address] CH - CLINICAL NUTRITION 800 [place] [address] 05/18/2025 10:50 AM EST Office Visit [facility] [address] [facility] [address] [place] [address] Nj Johns MD [address] [facility] D[address] [place] [address] 05/18/2025 11:30 AM EST Social Work [facility] [address] [facility] [address] [place] [address] Thuy Dasilva, [place] [address] 05/18/2025 1:00 PM EST Appointment [facility] Radiology [address] [place] [address] 05/18/2025 1:30 PM EST Appointment [facility] Radiology [address], 1st [place] [address] 05/18/2025 1:30 PM EST Appointment [facility] Radiology [address], 1st Floor [place] [address] 05/18/2025 2:00 PM EST Pharmacist Visit [facility] [address] [place] [address] 05/22/2025 11:15 AM EST Consult [facility] [address], 1st [place] [address] Nigel Recinos MD [address] [place] [address] 05/25/2025 11:30 AM EST Appointment [facility] [address] [place] [address] 05/25/2025 2:00 PM EST Appointment [facility] Pulmonary Function Testing 800 [place] [address] 05/25/2025 3:30 PM EST Appointment Cardiac Imaging [address] [place] [address] 05/31/2025 4:30 PM EST Appointment [facility] [address] 800 [place] [address] 06/20/2025 10:30 AM EST Procedure Visit [facility] [address], [address] [place] [address] Claire Davidson MD [address] [place] [address] 06/21/2025 2:00 PM EST Office Visit [facility] [address] [facility], [address] [place] [address] Claire Davidson MD [address] [place] [address] documented as of this [...] as of this encounter Care Teams Supervisor Assembly Relationship Specialty Start Date End Date Trevor Rolon DO [address] [facility] 201 [place] [address] PCP - General 11/22/20 Mc Grant DO [address] [address] Referring Physician Gastroenterology 02/21/24 documented as of this encounter
--- OUTSIDE RECORDS SUMMARY | 2025-04-11 14:05 | XMS_ITS | Encounter Summary ---
Author Organization [facility] nter Address [address] [place] [address] Care Team Providers Care Account Developer Name Role Phone Trevor Rolon DO Primary Care Provider Lucy Christopher DO Unavailable Reason for Visit * Reason Comments Med Refill Encounter Details Date Type Department Care Team (Late st Contact Info) Description 08/08/2024 Refill [facility] ENDOCRINOLOGY PRACTICE [address], 8th Floor Clinic [place] [phone] Brigitte Mahoney, CLAU [address] [place] [address] Social History Tobacco Use Types [...] How often do you attend chur or temple services? More than 4 times [...] Recorded Patient Health Questionnaire-2 Score 0 09/28/2023 [facility] of Occupat ional Health - Occupational Stress [...] ULTRASOUND [address], 2nd [place] [address] 05/07/2025 3:00 PM EDT Appointment [facility] BLDG D [address], [place] [address] 06/18/2025 10:30 AM EST Office Visit [facility] GASTROENTEROLOGY PRACTICE [address], 2nd [place] [address] 06/27/2025 10:00 AM EST Office Visit [facility] SLEEP LAB PRACTICE [address], [facility] [place] [address] Marcelina Hyde NP [address] [place] [address] 08/16/2025 10:00 AM EST Office Visit [facility] ENDOCRINOLOGY PRACTICE [address], 8th [place] [address] Brigitte Mahoney NP [address] [place] [address] 09/18/2025 1:30 PM EDT Office Visit [facility] RHEUMATOLOGY PRACTICE [address], 8th [place] [address] Suman Treviño MD [address] [facility]. Katie [place] [phone] 12/13/2025 11:00 AM EDT Office Visit [facility] OBGYN PRACTICE [address], 7th [place] [address] Janice Woodward NP [address] [place] [address] documented as of this encounter Visit Diagnoses Not on filedocumented in this encounter Additional Health Concerns Assessment Noted Time PHQ-9 Depression Total Score: 0 07/24/19 23 3:00 PM EST documented as of this encounter Care Teams Account Developer Relationship Specialty Start Date End Date Trevor Rolon DO [address] [facility] [address] [place] [address] PCP - General Lucy Christopher DO [address] [place] [address] Consulting Physician Oncology 10/17/24 documented as of this encounter
--- OUTSIDE RECORDS SUMMARY | 2025-04-11 14:05 | XMS_ITS | Encounter Summary ---
Author Organization [facility] Address [address] [place] [address] Care Team Providers Care Geosciences Associate Professor Name Role Phone Trevor Rolon DO Primary Care Provider [phone] Mc Grant DO Unavailable [phone] El Agarwal MACHINE SETTER Unavailable [phone] Reason for Referral * Consultation (Routine) - Authorized Specialty Diagnoses / Procedures Referred By Truong bella Referred To Contact Cardiology Diagnoses HTN, goal to be determined Laquita Corral PA [address] [place] [address] Phone: tel: fax: Referral ID Status Reason Start Date Expiration Date Visits Requested Visits Authorized [id number] Authorized Specialty Services Required 03/04/2025 09/03/2026 1 1 * Consultation (Routine) - Closed Specialty Diagnoses / Procedures Referred By Truong bella Referred To Contact Neurology Diagnoses Neuropathic pain, leg, bilateral Laquita Corral PA [address] [place] [address] Phone: tel: fax: Referral ID Status Reason Start Date Expiration Date V isits Requested Visits Authorized [id number] Closed Specialty Services Required 03/04/2025 09/03/2026 1 1 Encounter Details Date Type Department Care Team (Late st Contact Info) Description 03/04/2025 [facility] [address] [place] [address] Laquita Corral PA [address] [place] [address] Neuropathic pain, leg, bilateral (Primary Dx); HTN, goal to be determined Social History Tobacco Use Types Packs/Day Years [...] Info) Description 05/14/2025 2:00 PM EST Appointment [facility] [address] [place] [address] 05/18/2025 9:15 AM EST Clinical Support [facility] [address] [place] [address] 05/18/2025 9:30 AM EST Clinical Support [facility] [place] [address] [place] [address] CH - CLINICAL NUTRITION [address] [place] [address] 05/18/2025 10:50 AM EST Office Visit [facility] [place] [address] [place] [address] Nj Johns MD [address] [place] [phone] 05/18/2025 11:30 AM EST Social Work [facility] [address] [place] [address] Thuy Dasilva, [place] [address] 05/18/2025 1:00 PM EST Appointment [facility] Radiology [address] [place] [address] 05/18/2025 1:30 PM EST Appointment [facility] Radiology [address], 1st Floor Wing C [place] [address] 05/18/2025 1:30 PM EST Appointment [facility] [address], 1st Floor Wing C [place] [address] 05/18/2025 2:00 PM EST Pharmacist Visit [facility] [address] [place] [address] 05/22/2025 11:15 AM EST Consult [facility] [address], 1st [place] [address] Nigel Recinos MD [address] [place] [address] 05/25/2025 11:30 AM EST Appointment [facility] [address] [place] [address] 05/25/2025 2:00 PM EST Appointment [facility] Pulmonary Function Testing [address] [place] [address] 05/25/2025 3:30 PM EST Appointment Cardiac Imaging [address] [place] [address] 05/31/2025 4:30 PM EST Appointment [facility] [place] [address] Janice Valdes [facility] [address] [place] [address] 06/20/2025 10:30 AM EST Procedure Visit [place] [facility] [address], 1st [place] [address] Claire Davidson MD [address] [place] [address] 06/21/2025 2:00 PM EST Office Visit [facility] [address] [facility], [address] [place] [address] Claire Davidson MD [address] [facility] [address] [place] [address] Scheduled Referrals Name Type Priority Associated Diagnoses Order Schedule Ambulatory referral to Neurology Outpatient Referral Routine Neuropathic pain, leg, bilateral 1 Occurrences starting 03/04/2025 until 09/05/2026 Ambulatory referral to Cardiology Outpatient Referral Routine HTN, goal to be determined 1 Occurrences starting 03/04/2025 until 09/05/2026 documented as of this encounter Visit Diagnoses Diagnosis Neuropathic pain, leg, bilateral- Primary HTN, goal to be determined documented in this encounter Additional Health Concerns Assessment Noted Time PHQ-9 Depression Total Score: 12 024 7:48 AM EDT A fall risk assessment has been complete d for the patient 02/22/2024 7:47 AM EDT A Body Mass Index follow-up plan has been documented for the patient 10/10/2024 10:08 AM EDT documented as of this encounter Care Teams Geosciences Associate Professor Relationship Specialty Start Date End Date Trevor Rolon DO [address] [address] PCP - General 11/22/20 Mc Grant DO [address] [facility] 201 [place] [address] Referring Physician Gastroenterology 02/21/24 El Agarwal APRN [address] [place] [address] Referring Physician Gastroenterology 03/21/25 documented as of this encounter
--- OUTSIDE RECORDS SUMMARY | 2025-04-11 14:05 | XMS_ITS | Encounter Summary ---
Author Organization [facility] nter Address [address] [place] [address] Care Team Providers Care Personnel Adviser Name Role Phone Trevor Rolon DO Primary Care Provider Lucy Christopher DO Unavailable Encounter Details Date Type Department Care Team (Late st Contact Info) Description 08/08/2024 Orders Only [facility] [address], 8th [place] [address] Brigitte Mahoney, CLAU [address] [place] [address] Social History Tobacco Use Types [...] How often do you attend chur or worship services? More than 4 times per year 07/24/2022 Do you belong to any clubs o r organizations such as samaritan groups, unions, fraternal or athletic groups, or [...] Health Questionnaire-2 Score 0 09/28/2023 [facility] of Occupat ional Health - Occupational Stress [...] ULTRASOUND [address], 2nd Floor May [place] [facility] [address] 05/07/2025 3:00 PM EDT Appointment [facility] MAMMOGRAPHY SERVICES FARRUKH D [address] [place] [address] 06/18/2025 10:30 AM EST Office Visit [facility]STRO[facility]OLOG[facility]ACT[facility] [address], 2nd [place] [address] 06/27/2025 10:00 AM EST Office Visit [facility] SLEEP LAB PRACTICE [address] [place] [address] Marcelina Hyde NP [address] [...] [address] 12/13/2025 11:00 AM EDT Office Visit [facility] [...] documented as of this encounter Care Teams Personnel Adviser Relationship Specialty Start Date End Date Trevor Rolon DO [address] [facility] [address] [place] [address] PCP - General Lucy Christopher DO [address] [place] [phone] Consulting Physician Oncology 10/17/24 documented as of this encounter
--- OUTSIDE RECORDS SUMMARY | 2025-04-11 14:05 | XMS_ITS | Encounter Summary ---
Author Organization [facility] nter Address [address] [place] [address] Care Team Providers Care Work Car Operator Name Role Phone Trevor Rolon DO Primary Care Provider Lucy Christopher DO Unavailable Encounter Details Date Type Department Care Team (Late st Contact Info) Description 07/11/2024 Orders Only [facility] [address], 8th Floor Clinic [place] [address] Brigitte Mahoney, CLAU [address] [place] [address] Social History Tobacco Use Types [...] Recorded Patient Health Questionnaire-2 Score 0 09/28/2023 [facility] of Occupat ional Health - Occupational Stress [...] ULTRASOUND [address], 2nd Floor [place] [facility] [place] [address] 05/07/2025 3:00 PM EDT Appointment [facility] MAMMOGRAPHY SERVICES FARRUKH D [address] [place] [address] 06/18/2025 10:30 AM EST Office Visit [facility] [address], 2nd [place] [address] 06/27/2025 10:00 AM EST Office Visit [facility] SLEEP LAB PRACTICE [address] [place] [address] Marcelina Hyde NP [address] [...] [facility] OBGYN PRACTICE [address] 7[address] Floor Clinic [place] [address] Janice Woodward, CLAU [address] [place] [address] documented as of this encounter Visit Diagnoses Not on filedocumented in this encounter Additional Health Concerns Assessment Noted Time PHQ-9 Depression Total Score: 0 07/24/19 23 3:00 PM EST documented as of this encounter Care Teams Work Car Operator Relationship Specialty Start Date End Date Trevor Rolon DO [address] [facility] [address] [place] [address] PCP - General Lucy Christopher DO [address] [place] [phone] Consulting Physician Oncology 10/17/24 documented as of this encounter
--- OUTSIDE RECORDS SUMMARY | 2025-04-11 14:05 | XMS_ITS | Encounter Summary ---
Author Organization [facility] Address [address] [place] [address] Care Team Providers Care Party Director Name Role Phone Trevor Rolon DO Primary Care Provider Mc Grant DO Unavailable [phone] El Agarwal VB NET DEVELOPER Unavailable [phone] Encounter Details Date Type Department Care Team (Late st Contact Info) Description 02/18/2024 Community [facility] [address] [place] [address] Mc Grant DO [address] [place] [place] [address] Encephalopathy, hepatic (CMS/HCC) (Primary Dx); Cirrhosis of [...] Info) Description 05/14/2025 2:00 PM EST Appointment [facility] [address] [place] [address] 05/18/2025 9:15 AM EST Clinical Support [facility] [address] [place] [address] 05/18/2025 9:30 AM EST Clinical Support [facility] [address] [place] [address] CH - CLINICAL NUTRITION [address] [place] [address] 05/18/2025 10:50 AM EST Office Visit [facility] [address] [place] [address] Nj Johns MD [address] [place] [address] 05/18/2025 11:30 AM EST Social Work [facility] [address] [facility] [address] [place] [address] Thuy Dasilva, [place] [address] 05/18/2025 1:00 PM EST Appointment [facility] [address] [place] [address] 05/18/2025 1:30 PM EST Appointment [facility] [address], 1st [place] [address] 05/18/2025 1:30 PM EST Appointment [facility] [address], 1st [place] [address] 05/18/2025 2:00 PM EST Pharmacist Visit [facility] [address] [place] [address] 05/22/2025 11:15 AM EST Consult [facility] [address], 1st [place] [address] Nigel Recinos MD [address] [place] [address] 05/25/2025 11:30 AM EST Appointment [facility] [address] [place] [address] 05/25/2025 2:00 PM EST Appointment [facility] Pulmonary Function Testing [address] [place] [address] 05/25/2025 3:30 PM EST Appointment Cardiac Imaging [address] [place] [address] 05/31/2025 4:30 PM EST Appointment [facility] [address] [place] [address] 06/20/2025 10:30 AM EST Procedure Visit [facility] [address], 1st [place] [address] Claire Davidson MD [address] [place] [address] 06/21/2025 2:00 PM EST Office Visit [facility] [address] [facility], [address] [place] [address] Claire Davidson MD [address] [place] [address] documented as of this encounter Visit Diagnoses Diagnosis Encephalopathy, hepatic (CMS/HCC)- Primary Hepatic encephalopathy Cirrhosis of liver with ascites, unspecified hepatic cirrhosis type documented in this encounter Additional Health Concerns Assessment Noted Time A fall risk assessment has been complete d for the patient 05/14/2023 11:23 AM EDT A Body Mass Index follow-up plan has been documented for the patient 05/19/2023 10:54 AM EST documented as of this encounter Care Teams Party Director Relationship Specialty Start Date End Date Trevor Rolon DO [address] [facility] [address] [place] [address] PCP - General 11/22/20 Mc Grant DO [address] [facility] [address] [place] [address] Referring Physician Gastroenterology 02/21/24 El Agarwal APRN [address] [place] [address] Referring Physician Gastroenterology 03/21/25 documented as of this encounter
--- OUTSIDE RECORDS SUMMARY | 2025-04-11 14:05 | XMS_ITS | Clinical Summary ---
Author Organization [facility] Address [address] [place] [address] Care Team Providers Care Executive Creative Director Name Role Phone John Cowan MD Primary Care Provider Social History Tobacco Use Types Packs/Day Years Used Date Smoking Tobacco: Never Assessed Abuse Screen Answer Date Recorded Unsafe at Home or Work/School Not on file Feels Threatened by Someone? Not on file 03/2023 Does Anyone Keep You from Co ntacting Others or Doint Things Outside the Home? Not on file 04/19/2023 Physical Sign of Abuse Present Not on file 1 Housing Stability Answer Date Recorded Current Living Arrangements Not on file 03/2023 Potentially Unsafe Housing Conditions Not on damaris e 04/19/2023 Family and Community Support Answer Matt e Recorded Help with Day-to-Day Activities Not on file 04/19/2023 Lonely or Isolated Not on file 04/19/2023 Employment Answer Date Recorded Do you want help finding or keeping work or a veronique b? Not on file 04/19/2023 Disabilities Answer Date Recorded Concentrating, Remembering, or Making Decisions Difficulty Not on file 04/19/2023 Doing Errands Independently Difficulty Not on fi le 04/19/2023 Education Answer Date Recorded Help with school or training? Not on file Preferred Language Not on file 04/19/2023 Comments Unknown Sex and Gender Information Value Date Recorded Sex Assigned at Not on file Legal Sex Female 1:13 PM EDT Gender Identity Not on file Sexual Orientation Not on file Plan of Treatment Health Maintenance Due Date Last Done Comments ANNUAL PHYSICAL 1969 Annual Gynecologic Pelvic an d Breast Exam 1970 HEPATITIS C SCREENING 1969 TDAP/TD VACCINES (1 - Tdap) 1988 COLOGUARD 2014 COLON CANCER SCREENING 5 YEA R SIGMOIDOSCOPY 2014 COLONOSCOPY 2014 COLORECTAL CANCER SCREENING 2014 CT COLONOGRAPHY 2014 FECAL OCCULT BLOOD TEST 2014 FIT Testing (1 year) 2014 Pneumococcal Vaccine 50+ (1 of 1 - PCV) 10/17/2019 ZOSTER VACCINE (1 of 2) 10/17/2019 INFLUENZA VACCINE 02/09/2025 MAMMOGRAM 02/14/2026 02/15/2024, 1012/2014, 02/07/2014 Procedures Procedure Name Priority Date/Time Associated Diagnosis Comments MAMMO SCREENING BILATERAL W CAD Routine 04/16/2015 3:20 PM EDT from Last 3 Months or Most Recently Relevant to Health Maintenance Results * MAMMOGRAPHY SCREENING BILATERAL (04/16/2015 3:20 PM EDT) Anatomical Region Laterality Modality Breast Bilateral Mammography 04/16/2015 3:20 PM EDT Narrative 04/17/2015 10:47 AM EDT Exam Room: [facility] MAMM RM 1 Exam Start: [id number] Exam Stop: [id number] HISTORY- Screening Mammography. Low Dose full field Digital Breast Tomosynthesis examination was performed with 2D and 3D acquisitions. Examination is compared to prior examination dating back to 03/29/2007. Examination is read in conjunction with computer aided detection. FINDINGS- The breasts are almost entirely fatty. No suspicious masses, microcalcifications or areas of architectural distortion are identified. Changes consistent with bilateral reduction mammoplasty are stable. IMPRESSION- Benign screening mammogram. RECOMMENDATION- Continue annual screening mammography. BI-RADS CATEGORY II, BENIGN. CAD was utilized. The standard false-negative rate of mammography is between 10% and 25%. Complex patterns or increased breast density will markedly elevate the false-negative rate of mammography. A letter, in lay terminology, with the results of this exam will be mailed to the patient. Reading RadiologistAhmet AVILA Releasing RadiologistAhmet AVILA Released Date Time- 04/17/15 1049 Aviation Tactical Readiness Officer- S.S. Read By: MARILEE AVILA Released By: MARILEE AVILA Procedure Note Marilee Gabriel MD - 05/05/2015 Exam Room: [facility] 1 Exam Start: [id number] Exam Stop: [id number] HISTORY- Screening Mammography. Low Dose full field Digital Breast Tomosynthesis examination was performed with 2D and 3D acquisitions. Examination is compared to prior examination dating back to 03/29/2007. Examination is read in conjunction with computer aided detection. FINDINGS- The breasts are almost entirely fatty. No suspicious masses, microcalcifications or areas of architectural distortion are identified. Changes consistent with bilateral reduction mammoplasty are stable. IMPRESSION- Benign screening mammogram. RECOMMENDATION- Continue annual screening mammography. BI-RADS CATEGORY II, BENIGN. CAD was utilized. The standard false-negative rate of mammography is between 10% and 25%. Complex patterns or increased breast density will markedly elevate the false-negative rate of mammography. A letter, in lay terminology, with the results of this exam will be mailed to the patient. Reading Radiologist- MARILEE AVILA Releasing Radiologist- MARILEE AVILA Released Date Time- 04/17/15 1049 Aviation Tactical Readiness Officer- S.S. Read By: MARILEE AVILA Released By: MARILEE AVILA Pierre Orozco MD IM MAMMOGRAPHY ORDERABL ES Final Result from Last 3 Months or Most Recently Relevant to Health Maintenance Care Teams Executive Creative Director Relationship Specialty Start Date End Date John Cowan MD [address] [place] [address] PCP - General 04/16/15
--- OUTSIDE RECORDS SUMMARY | 2025-04-11 14:05 | XMS_ITS | Encounter Summary ---
Author Organization [facility] Address [address] [place] [address] Care Team Providers Care Teacher Of The Visually Impaired Name Role Phone Trevor Rolon DO Primary Care Provider Mc Grant DO Unavailable [phone] El Agarwal POLICE AIDE Unavailable [phone] Reason for Referral * Consultation (Routine) - Authorized Specialty Diagnoses / Procedures Referred By Truong bella Referred To Contact Gastroenterology Diagnoses GOOD (nonalcoholic steatohepatitis) Laquita Corral PA [address] [place] [address] Phone: tel: fax: Referral ID Status Reason Start Date Expiration Date Visits Requested Visits Authorized [id number] Authorized Specialty Services Required 01/27/2024 07/28/2025 1 1 Encounter Details Date Type Department Care Team (Late st Contact Info) Description 01/27/2024 [facility] [address] [place] [address] Laquita Corral PA [address] [place] [address] GOOD (nonalcoholic steatohepatitis) (Primary Dx) Social History [...] Info) Description 05/14/2025 2:00 PM EST Appointment [facility] [address] [place] [address] 05/18/2025 9:15 AM EST Clinical Support [facility] [address] [address] 05/18/2025 9:30 AM EST Clinical Support [facility] [address] [address] CH - CLINICAL NUTRITION [address] [place] [address] 05/18/2025 10:50 AM EST Office Visit [facility] [address] [facility] [address] [place] [address] Nj Johns MD [address] [facility] [address] [place] [address] 05/18/2025 11:30 AM EST Social Work [facility] [address] [facility] [address] [place] [address] Thuy Dasilva, [place] [address] 05/18/2025 1:00 PM EST Appointment [facility] [address] [place] [address] 05/18/2025 1:30 PM EST Appointment [facility] [address], 1st [place] [address] 05/18/2025 1:30 PM EST Appointment [facility] [address], 1st [place] [address] 05/18/2025 2:00 PM EST Pharmacist Visit [facility] [address] [place] [address] 05/22/2025 11:15 AM EST Consult [facility] [address], 1st [place] [address] Nigel Recinos MD [address] [facility] [address] [place] [address] 05/25/2025 11:30 AM EST Appointment [facility] [address] [place] [address] 05/25/2025 2:00 PM EST Appointment [facility] Pulmonary Function Testing [address] [place] [address] 05/25/2025 3:30 PM EST Appointment Cardiac Imaging [address] [place] [address] 05/31/2025 4:30 PM EST Appointment [facility] [address] [place] [address] 06/20/2025 10:30 AM EST Procedure Visit [facility] [address], 1st [place] [address] Claire Davidson MD [address] [facility] [address] [place] [address] 06/21/2025 2:00 PM EST Office Visit [facility] Specialty Care [facility] [address] [facility] [place] [address] Claire Davidson MD [address] [facility] [address] [place] [address] Scheduled Referrals Name Type Priority [...] documented as of this encounter Care Teams Teacher Of The Visually Impaired Relationship Specialty Start Date End Date Trevor Rolon DO [address] [facility] 201 [place] [address] PCP - General 11/22/20 Mc Grant DO [address] [facility] 201 [place] [address] Referring Physician Gastroenterology 02/21/24 El Agarwal APRN [address] [place] [address] Referring Physician Gastroenterology 03/21/25 documented as of this encounter
--- OUTSIDE RECORDS SUMMARY | 2025-04-11 14:05 | XMS_ITS | Encounter Summary ---
Author Organization [facility] nter Address [address] [place] [address] Care Team Providers Care Engineering Teacher Name Role Phone Trevor Rolon DO Primary Care Provider Lucy Christopher DO Unavailable Encounter Details Date Type Department Care Team (Late st Contact Info) Description 10/06/2023 Orders Only [facility] NEUROLOGY PRACTICE [facility] [address] [facility] [address] [place] [address] Lupe Villalta, ELECTRIC POWERLINE EXAMINER [address] [facility] [place] [address] Social History Tobacco Use Types [...] How often do you attend chur or nondenominational services? More than 4 times per year [...] Recorded Patient Health Questionnaire-2 Score 0 09/28/2023 [facility] of Occupat ional Health - [...] AM EDT Appointment [facility] ULTRASOUND [address], 2nd [place] [address] 05/07/2025 3:00 PM EDT Appointment [facility] MAMMOGRAPHY SERVICES FARRUKH Klein [address] [place] [address] 06/18/2025 10:30 AM EST Office Visit [facility] [address], 2nd [place] [address] 06/27/2025 10:00 AM EST Office Visit [facility] SLEEP [facility] [address] [place] [address] Marcelina Hyde NP [address] [place] [...] documented as of this encounter Care Teams Engineering Teacher Relationship Specialty Start Date End Date Trevor Rolon DO [address] [facility] [address] [place] [address] PCP - General Lucy Christopher DO [address] [place] [phone] Consulting Physician Oncology 10/17/24 documented as of this encounter
--- OUTSIDE RECORDS SUMMARY | 2025-04-11 14:05 | XMS_ITS | Encounter Summary ---
Author Organization [facility] Address [address] [place] [address] Care Team Providers Care Home Care Nurse Name Role Phone Trevor Rolon DO Primary Care Provider Mc Grant DO Unavailable [phone] El Agarwal WORKFORCE SPECIALIST Unavailable [phone] Encounter Details Date Type Department Care Team (Late st Contact Info) Description 03/01/2023 Orders Only External Location [address] [place] [address] Provider, External Social History Tobacco Use Types [...] Info) Description 05/14/2025 2:00 PM EST Appointment [facility] [address] [place] [address] 05/18/2025 9:15 AM EST Clinical Support [facility] [address] [place] [address] 05/18/2025 9:30 AM EST Clinical Support [facility] [address] [place] [address] CH - CLINICAL NUTRITION [address] [place] [address] 05/18/2025 10:50 AM EST Office Visit [facility] [address] [place] [address] Nj Johns MD [address] [place] [address] 05/18/2025 11:30 AM EST Social Work [facility] [address] [place] [address] Thuy Dasilva, [place] [address] 05/18/2025 1:00 PM EST Appointment [facility] [address] [place] [address] 05/18/2025 1:30 PM EST Appointment [facility] [address], 1st Floor Wing [place] [address] 05/18/2025 1:30 PM EST [facility]ment [facility] [address], 1st Floor Wing [place] [address] 05/18/2025 2:00 PM EST Pharmacist [facility] [address] [place] [address] 05/22/2025 11:15 AM EST Consult [facility] [address], 1st Floor Wing C [place] [address] Nigel Recinos MD [address] [address] 05/25/2025 11:30 AM EST Appointment [facility] [address] [place] [address] 05/25/2025 2:00 PM EST Appointment [facility] Pulmonary Function Testing [address] [place] [address] 05/25/2025 3:30 PM EST Appointment Cardiac Imaging [address] [place] [address] 05/31/2025 4:30 PM EST Appointment [facility] [address] [place] [address] 06/20/2025 10:30 AM EST Procedure Visit [place] [facility] [address], 1st [place] [address] Claire Davidson MD [address] [address] 06/21/2025 2:00 PM EST Office Visit [facility] [address] [facility], [address] [place] [address] Claire Davidson MD [address] [address] documented as of this encounter [...] documented as of this encounter Care Teams Home Care Nurse Relationship Specialty Start Date End Date Trevor Rolon DO [address] [address] PCP - General 11/22/20 Mc Grant DO [address] [address] Referring Physician Gastroenterology 02/21/24 El Agarwal APRN [address] [place] [address] Referring Physician Gastroenterology 03/21/25 documented as of this encounter
--- OUTSIDE RECORDS SUMMARY | 2025-04-11 14:05 | XMS_ITS | Encounter Summary ---
Author Organization [facility] nter Address [address] [place] [address] Care Team Providers Care Elevator Examiner And Adjuster Name Role Phone Trevor Rolon DO Primary Care Provider Lucy Christopher DO Unavailable Encounter Details Date Type Department Care Team (Late st Contact Info) Description 01/08/2023 Orders Only [facility] [address], 8th Floor Clinic [place] [address] Brigitte Mahoney, CLAU [address] [place] [address] Social History Tobacco Use Types [...] Recorded Patient Health Questionnaire-2 Score 0 07/24/2022 [facility] of Occupat ional Health - Occupational [...] ULTRASOUND [address], 2nd [place] [address] 05/07/2025 3:00 PM EDT Appointment [facility] MAMMOGRAPHY SERVICES BLDG D [address], [address]ld[address] [facility] [address] 06/18/2025 10:30 AM EST Office Visit [facility] [address], 2nd [place] [address] 06/27/2025 10:00 AM EST Office [facility] SLEEP LAB PRACTICE [address], Tommy jakub [facility] [place] [address] Marcelina Hyde NP [address] [place] [address] 08/16/2025 10:00 AM EST Office Visit [facility] ENDOCRINOLOGY PRACTICE [address], 8th Floor [facility] [place] [address] Brigitte Mahoney NP [address] [place] [address] 09/18/2025 1:30 PM EDT Office Visit [facility] RHEUMATOLOGY PRACTICE [address], 8th Floor [facility] [place] [address] Suman Treviño MD [address] [facility] Katie [facility] [place] [address] 12/13/2025 11:00 AM EDT Office Visit [facility] OBGYN PRACTICE [address], 7th Floor [facility] [place] [address] Janice Woodward NP [address] [place] [address] documented as of this encounter Visit Diagnoses Not on filedocumented in this encounter Additional Health Concerns Assessment Noted Time PHQ-9 Depression Total Score: 0 07/24/19 23 3:00 PM EST documented as of this encounter Care Teams Elevator Examiner And Adjuster Relationship Specialty Start Date End Date Trevor Rolon DO [address] [facility] [address] [place] [address] PCP - General Lucy Christopher [place] [facility] [address] Consulting Physician Oncology 10/17/24 documented as of this encounter
--- OUTSIDE RECORDS SUMMARY | 2025-04-11 14:05 | XMS_ITS | Encounter Summary ---
Author Organization [facility] Address [address] [place] [address] Care Team Providers Care Showroom Salesperson Name Role Phone Trevor Rolon DO Primary Care Provider [phone] Mc Grant DO Unavailable [phone] El Agarwal CRIB PAD MAKER Unavailable [phone] Encounter Details Date Type Department Care Team (Late st Contact Info) Description 07/01/2023 Orders Only External Location [address] [place] [address] Provider, External Social History Tobacco Use Types [...] Info) Description 05/14/2025 2:00 PM EST Appointment [facility] [address] [place] [phone] 05/18/2025 9:15 AM EST Clinical Support [facility] [address] [place] [address] 05/18/2025 9:30 AM EST Clinical Support [facility] [address] [place] [address] CH - CLINICAL NUTRITION [address] [place] [address] 05/18/2025 10:50 AM EST Office Visit [facility] [address] [place] [address] Nj Johns MD [address] [place] [address] 05/18/2025 11:30 AM EST Social Work [facility] [address] [place] [address] Thuy Dasilva, [place] [address] 05/18/2025 1:00 PM EST Appointment [facility] Radiology [address] [place] [address] 05/18/2025 1:30 PM EST Appointment [facility] Radiology [address], 1st Floor Wing C [place] [address] 05/18/2025 1:30 PM EST Appointment [facility] [address], 1st Floor Wing C [place] [address] 05/18/2025 2:00 PM EST Pharmacist Visit [facility] [address] [place] [address] 05/22/2025 11:15 AM EST Consult [facility] [address], 1st Floor Wing C [place] [address] Nigel Recinos MD [address] [address] 05/25/2025 11:30 AM EST Appointment [facility] Rad[facility] [address] [place] [address] 05/25/2025 2:00 PM EST Appointment [facility] Pulmonary Function Testing [address] [place] [address] 05/25/2025 3:30 PM EST Appointment Cardiac Imaging [address] [place] [address] 05/31/2025 4:30 PM EST Appointment [facility] [address] 800 [place] [address] 06/20/2025 10:30 AM EST Procedure Visit [place] [facility] [address], 1st [place] [address] Claire Davidson MD [address] [address] 06/21/2025 2:00 PM EST Office Visit [facility] [address] [facility], [address] [place] [address] Claire Davidson MD [address] [address] documented as of this encounter [...] documented as of this encounter Care Teams Showroom Salesperson Relationship Specialty Start Date End Date Trevor Rolon DO [address] [facility] 201 [place] [address] PCP - General 11/22/20 Mc Grant DO [address] [facility] 201 [place] [address] Referring Physician Gastroenterology 02/21/24 El Agarwal APRN [address] [place] [address] Referring Physician Gastroenterology 03/21/25 documented as of this encounter
--- OUTSIDE RECORDS SUMMARY | 2025-04-11 14:05 | XMS_ITS | Encounter Summary ---
Author Organization [facility] nter Address [address] [place] [address] Care Team Providers Care Blueberry Grower Name Role Phone Trevor Rolon DO Primary Care Provider Lucy Christopher DO Unavailable Encounter Details Date Type Department Care Team (Late st Contact Info) Description 07/17/2024 Orders Only [facility] [address], 8th Floor Clinic [place] [phone] Lupe Villalta, SHAKE SPLITTER [address] [facility] [place] [address] Social History Tobacco Use Types [...] Recorded Patient Health Questionnaire-2 Score 0 09/28/2023 [facility] - Occupational Stress Questionnaire [...] ULTRASOUND [address], 2nd Floor [place] [facility] [address] 05/07/2025 3:00 PM EDT Appointment [facility] MAMMOGRAPHY SERVICES FARRUKH D [address] [place] [place] [address] 06/18/2025 10:30 AM EST Office Visit [facility] [address], 2nd Floor Clinic [place] [address] 06/27/2025 10:00 AM EST Office Visit [facility] SLEEP LAB PRACTICE [address] [place] [address] Marcelina Hyde NP [address] Bldg A [place] [address] 08/16/2025 10:00 AM EST Office [...] [address] 12/13/2025 11:00 AM EDT Office Visit [facility] [...] documented as of this encounter Care Teams Blueberry Grower Relationship Specialty Start Date End Date Trevor Rolon DO [address] [facility] [address] [place] [address] PCP - General Lucy Christopher DO [address] Bld[address] [place] [address] Consulting Physician Oncology 10/17/24 documented as of this encounter
--- OUTSIDE RECORDS SUMMARY | 2025-04-11 14:05 | XMS_ITS | Encounter Summary ---
Author Organization [facility] Address [address] [place] [address] Care Team Providers Care Sales Management Intern Name Role Phone Trevor Rolon DO Primary Care Provider Mc Grant DO Unavailable [phone] El Agarwal MICROSOFT EXCHANGE ARCHITECT Unavailable [phone] Encounter Details Date Type Department Care Team (Late st Contact Info) Description 01/06/2023 Orders Only External Location [address] [place] [address] Provider, External Social History Tobacco Use Types [...] Info) Description 05/14/2025 2:00 PM EST Appointment [facility] [address] [place] [address] 05/18/2025 9:15 AM EST Clinical Support [facility] [address] [place] [address] 05/18/2025 9:30 AM EST Clinical Support [facility] [address] [place] [address] CH - CLINICAL NUTRITION [address] [place] [address] 05/18/2025 10:50 AM EST Office Visit [facility] [address] [place] [address] Nj Johns MD [address] [place] [phone] 05/18/2025 11:30 AM EST Social Work [facility] [address] [place] [address] Thuy Dasilva, [place] [address] 05/18/2025 1:00 PM EST Appointment [facility] Radiology [address] [place] [address] 05/18/2025 1:30 PM EST Appointment [facility] Radiology [address], 1st Floor Wing C [place] [address] 05/18/2025 1:30 PM EST Appointment [facility] [address], 1st Floor Wing C [place] [address] 05/18/2025 2:00 PM EST Pharmacist Visit [facility] [address] [place] [address] 05/22/2025 11:15 AM EST Consult [facility] [address], 1st Floor Wing C [place] [address] Nigel Recinos MD [address] [address] 05/25/2025 11:30 AM EST Appointment [facility] Radiology [address] [place] [address] 05/25/2025 2:00 PM EST Appointment [facility] Pulmonary Function Testing 800 [place] [address] 05/25/2025 3:30 PM EST Appointment Cardiac Imaging [address] [place] [address] 05/31/2025 4:30 PM EST Appointment [facility] [address] 800 [place] [address] 06/20/2025 10:30 AM EST Procedure Visit [place] [facility] [address], 1st [place] [address] Claire Davidson MD [address] [address] 06/21/2025 2:00 PM EST Office Visit [facility] [address] [facility], [address] [place] [address] Claire Davidson MD [address] [address] documented as of this encounter [...] documented as of this encounter Care Teams Sales Management Intern Relationship Specialty Start Date End Date Trevor Rolon DO [address] [address] PCP - General 11/22/20 Mc Grant DO [address] [address] Referring Physician Gastroenterology 02/21/24 El Agarwal APRN [address] [place] [address] Referring Physician Gastroenterology 03/21/25 documented as of this encounter
--- OUTSIDE RECORDS SUMMARY | 2025-04-11 14:05 | XMS_ITS | Encounter Summary ---
Author Organization [facility] Address [address] [place] [address] Care Team Providers Care Car Head Liner Installer Name Role Phone Trevor Rolon DO Primary Care Provider Mc Grant DO Unavailable [phone] El Agarwal NURSE EMERGENCY ROOM Unavailable [phone] Encounter Details Date Type Department Care Team (Late st Contact Info) Description 09/28/2023 Orders Only External Location [address] [place] [address] Provider, External Social History Tobacco Use Types [...] Info) Description 05/14/2025 2:00 PM EST Appointment [facility] [address] [place] [address] 05/18/2025 9:15 AM EST Clinical Support [facility] [address] [place] [address] 05/18/2025 9:30 AM EST Clinical Support [facility] [address] [place] [address] CH - CLINICAL NUTRITION [address] [place] [address] 05/18/2025 10:50 AM EST Office Visit [facility] [address] [place] [address] Nj Johns MD [address] [place] [address] 05/18/2025 11:[address] [facility] [address] [place] [address] Thuy Dasilva, [place] [address] 05/18/2025 1:[address] [facility] Radiology [address] [place] [address] 05/18/2025 1:[address] [facility] Radiology [address], 1st Floor Wing C [place] [address] 05/18/2025 1:30 PM EST Appointment [facility] [address], 1st Floor Wing C [place] [address] 05/18/2025 2:00 PM EST Pharmacist Visit [facility] [address] [place] [address] 05/22/2025 11:[address] [facility] [address], 1st Floor Wing C [place] [address] Nigel Recinos MD [address] [address] 05/25/2025 11:30 AM EST Appointment [facility] Radiology [address] [place] [address] 05/25/2025 2:00 PM EST Appointment [facility] Pulmonary Function Testing [address] [place] [address] 05/25/2025 3:30 PM EST Appointment Cardiac Imaging [address] [place] [address] 05/31/2025 4:30 PM EST Appointment [facility] [address] 800 [place] [address] 06/20/2025 10:30 AM EST Procedure Visit [place] [facility] [address], 1st [place] [address] Claire Davidson MD [address] [address] 06/21/2025 2:00 PM EST Office Visit [facility] [address] [facility], [address] [place] [address] Claire Davidson MD [address] [address] documented as of this encounter [...] documented as of this encounter Care Teams Car Head Liner Installer Relationship Specialty Start Date End Date Trevor Rolon DO [address] [facility] 201 [place] [address] PCP - General 11/22/20 Mc Grant DO [address] [facility] [address] [place] [address] Referring Physician Gastroenterology 02/21/24 El Agarwal APRN [address] [place] [address] Referring Physician Gastroenterology 03/21/25 documented as of this encounter
--- OUTSIDE RECORDS SUMMARY | 2025-04-11 14:06 | XMS_ITS | Encounter Summary ---
Author Organization [facility] nter Address [address] [place] [address] Care Team Providers Care Sheet Folder Name Role Phone Trevor Rolon DO Primary Care Provider Lucy Christopher DO Unavailable Reason for Visit * Reason Comments Med Refill Encounter Details Date Type Department Care Team (Late st Contact Info) Description 10/01/2023 Refill [facility] NEUROLOGY PRACTICE [address], 8th Floor Clinic [place] [phone] Lupe Villalta, GARDENING MANAGER [address] [facility] [place] [address] Social History Tobacco Use Types [...] How often do you attend chur or faith services? More than 4 times per year 07/24/2022 Do you belong to any clubs o r organizations such as congregation groups, unions, fraternal or athletic groups, or [...] Recorded Patient Health Questionnaire-2 Score 0 09/28/2023 [facility] Occupat ional Health - Occupational Stress [...] 9:00 AM EDT Appointment [facility] ULTRASOUND [address], 2nd [place] [address] 05/07/2025 3:00 PM EDT Appointment [facility] FARRUKH Klein [address] [place] [address] 06/18/2025 10:30 AM EST Office Visit [facility] [address], 2nd [place] [address] 06/27/2025 10:00 AM EST Office Visit [facility] [address] [place] [address] Marcelina Hyde NP [address] Bld[address] A [place] [address] 08/16/2025 10:00 AM EST Office Visit [facility] ENDOCRINOLOGY [facility]ACTICE [address], 8th [place] [address] Brigitte Mahoney NP [address] Bld[address] A [place] [address] 09/18/2025 1:30 PM EDT Office Visit [facility] RHEUMATOLOGY PRACTICE [address], 8th [place] [address] Suman Treviño MD [address] [facility] [place] [address] 12/13/2025 11:00 AM EDT Office Visit [facility] OBGYN PRACTICE [address], 7th [place] [address] Janice Woodward NP [address] [place] [phone] documented as of this encounter Visit Diagnoses Not on filedocumented in this encounter Additional Health Concerns Assessment Noted Time PHQ-9 Depression Total Score: 0 07/24/19 23 3:00 PM EST documented as of this encounter Care Teams Sheet Folder Relationship Specialty Start Date End Date Trevor Rolon DO [address] [facility] [address] [place] [address] PCP - General Lucy Christopher DO [address] A [place] [address] Consulting Physician Oncology 10/17/24 documented as of this encounter
--- OUTSIDE RECORDS SUMMARY | 2025-04-11 14:06 | XMS_ITS | Encounter Summary ---
Author Organization [facility] Address [address] [place] [address] Care Team Providers Care Bingo Manager Name Role Phone Trevor Rolon DO Primary Care Provider [phone] Mc Grant DO Unavailable [phone] El Agarwal BELLY DANCER Unavailable [phone] Reason for Visit * Reason Comments Appointment Confirmation and rem inders Encounter Details Date Type Department Care Team (Late st Contact Info) Description 03/28/2025 Telephone [facility] [address] [facility] [address] [place] [address] Sharri Almonte [place] [phone] Appointment (Confirmation and reminders) Social History Tobacco Use Types Packs/Day Years [...] on file documented as of this encounter Miscellaneous Notes * Telephone Encounter - Sharri Almonte - 03/28/2025 2:41 PM EDT Called to confirm New Patient Pre-Liver Initial Clinic Evaluation scheduled for Wednesday04/03/2025 at 6:30am. Called Ms Peña - no answer, left voicemail message with contact information and request for return call. documented in this encounter Plan of Treatment Upcoming Encounters Date Type Department Care Team (Late st Contact Info) Description 05/14/2025 2:00 PM EST Appointment [facility] [address] [place] [address] 05/18/2025 9:15 AM EST Clinical Support [facility] [address] [place] [address] 05/18/2025 9:30 AM EST Clinical Support [facility] [place] [address] [place] [address] Kaley Almanza, RD CH - CLINICAL NUTRITION [address] [place] [phone] 05/18/2025 10:50 AM EST Office Visit [facility] [address] [place] [address] Nj Johns MD [address] [place] [address] 05/18/2025 11:30 AM EST Social Work [facility] [address] [place] [address] [place] [address] 05/18/2025 1:00 PM EST Appointment [facility] Radiology [address] [place] [address] 05/18/2025 1:30 PM EST Appointment [facility] Radiology [address], 1st [place] [address] 05/18/2025 1:30 PM EST Appointment [facility] Radiology [address], 1st [place] [address] 05/18/2025 2:00 PM EST Pharmacist Visit [facility] [address] [place] [address] 05/22/2025 11:15 AM EST Consult [facility] [address], 1st [place] [address] Nigel Recinos MD [address] [place] [address] 05/25/2025 11:30 AM EST Appointment [facility] Radiology [address] [place] [address] 05/25/2025 2:00 PM EST Appointment [facility] Pulmonary Function Testing [address] [place] [address] 05/25/2025 3:30 PM EST Appointment Cardiac Imaging [address] [place] [address] 05/31/2025 4:30 PM EST Appointment [facility] [address] 800 [place] [address] 06/20/2025 10:30 AM EST Procedure Visit [facility] [address], 1st [place] [address] Claire Davidson MD [address] [place] [address] 06/21/2025 2:00 PM EST Office Visit [facility] [address] [facility], [address] [place] [address] Claire Davidson MD [address] [place] [address] documented as of this encounter [...] documented as of this encounter Care Teams Bingo Manager Relationship Specialty Start Date End Date Trevor Rolon DO [address] [facility] 201 [place] [address] PCP - General 11/22/20 Mc Grant DO [address] [facility] 201 [place] [address] Referring Physician Gastroenterology 02/21/24 El Agarwal APRN [address] [place] [address] Referring Physician Gastroenterology 03/21/25 documented as of this encounter
--- OUTSIDE RECORDS SUMMARY | 2025-04-11 14:06 | XMS_ITS | Encounter Summary ---
Author Organization [facility] Address [address] [place] [address] Care Team Providers Care Dragline Engineer Name Role Phone Trevor Rolon DO Primary Care Provider Mc Grant DO Unavailable [phone] El Agarwal MIXER WHIPPED TOPPING Unavailable [phone] Encounter Details Date Type Department Care Team (Latest Contact Info) Description 04/02/2025 Travel Social History Tobacco Use Types Packs/Day Years Used Date Smoking Tobacco: Former Cigarettes 0.1 10.6 2 - 02/2022 Passive Smoke Exposure: Past Smokeless [...] Info) Description 05/14/2025 2:00 PM EST Appointment [facility] MRI [address] [place] [address] 05/18/2025 9:15 AM EST Clinical Support [facility] [address] [place] [place] [address] 05/18/2025 9:30 AM EST Clinical Support [facility] [address] [place] [address] CH - CLINICAL NUTRITION 800 [place], [place] [phone] 05/18/2025 10:50 AM EST Office Visit [facility] [address] [place] [address] Nj Johns MD [address] [place] [address] 05/18/2025 11:30 AM EST Social Work [facility] [address] [place] [address] Thuy Dasilva, [place] [address] 05/18/2025 1:00 PM EST Appointment [facility] Radiology [address] [place] [address] 05/18/2025 1:30 PM EST Appointment [facility] Radiology [address] [place], 1st Floor Wing C [place] [address] 05/18/2025 1:30 PM EST Appointment [facility] Radiology [address] [place], 1st Floor Wing C [place] [address] 05/18/2025 2:00 PM EST Pharmacist Visit [facility] [address] [place] [address] 05/22/2025 11:15 AM EST Consult [facility] [address] [place], 1st Floor Wing C [place] [phone] Nigel Recinos MD [address] [place] [facility] [place] [address] 05/25/2025 11:30 AM EST Appointment [facility] Radiology [address] [place] [address] 05/25/2025 2:00 PM EST Appointment [facility] Pulmonary Function Testing 800 [place] [address] 05/25/2025 3:30 PM EST Appointment Cardiac Imaging [address] [place] [address] 05/31/2025 4:30 PM EST Appointment [facility] [address] 800 [place] [address] 06/20/2025 10:30 AM EST Procedure Visit [place] [facility] [address], 1st [place] [address] Claire Davidson MD [address] [place] [phone] [place] [address] 06/21/2025 2:00 PM EST Office Visit [facility] [address] [facility], [address] [place] [address] Claire Davidson MD [address] [place] [phone] [place] [address] documented as of this encounter [...] documented as of this encounter Care Teams Dragline Engineer Relationship Specialty Start Date End Date Trevor Rolon DO [address] [facility] [address] [place] [address] PCP - General 11/22/20 Mc Grant DO [address] [facility] 201 [place] [address] Referring Physician Gastroenterology 02/21/24 El Agarwal APRN [address] [place] [address] Referring Physician Gastroenterology 03/21/25 documented as of this encounter
--- OUTSIDE RECORDS SUMMARY | 2025-04-11 14:06 | XMS_ITS | Encounter Summary ---
Author Organization [facility] Address [address] [place] [address] Care Team Providers Care Lab Support Tech Name Role Phone Trevor Rolon DO Primary Care Provider Mc Grant DO Unavailable [phone] El Agarwal CROCHET BEADER Unavailable [phone] Reason for Visit * Reason Onset Date Comments [facility] Same Day Appt/Overbook Request 04/05/2025 OVERBOOK Encounter Details Date Type Department Care Team (Late st Contact Info) Description 04/05/2025 Telephone [facility] [address] [place] [address] [facility] Same Day Appt/Overbook Request (OVERBOOK) Social History Tobacco Use Types Packs/Day Years [...] encounter Miscellaneous Notes * Telephone Encounter - Ember Huston - 04/05/2025 8:20 AM EDT Same Day Appt/Overbook Request Reason for Call: OVERBOOK--Pt referred by Dr Johns to see a PCP with [facility]. Pt states is cleared by Cardiology and Pulmonary she will be placed on liver transplant list. Dr Johns advised pt was no longer able to live alone and will be moving to [place] to live with her sister. Pts sister is pt of [facility] and pt is asking to become a pt with her as well. Please call pt to discuss Best contact number: [phone] (mobile) Optimal time of day to reach caller: ANYTIME Additional comments/information from caller: none Note: Please do not reply to this message. Follow-up communication and further actions as a result of this message need to be communicated with the patient directly, if the patient is not active onMyChart. If the patient is active on MyChart, they will receive notification of the communication/outcome via [employer]. documented in this encounter Plan of Treatment Upcoming Encounters Date Type Department Care Team (Late st Contact Info) Description 05/14/2025 2:00 PM EST Appointment [facility] [address] [place] [address] 05/18/2025 9:15 AM EST Clinical Support [facility] [place] [address] [place] [address] 05/18/2025 9:30 AM EST Clinical Support [facility] [place] [address] [place] [address] CH - CLINICAL NUTRITION [address] [place] [address] 05/18/2025 10:50 AM EST Office Visit [facility] [address] [place] [address] Nj Johns MD [address] [place] [address] 05/18/2025 11:30 AM EST Social Work [facility] [address] [place] [address] Thuy Dasilva, [place] [address] 05/18/2025 1:00 PM EST Appointment [facility] Radiology [address] [place] [address] 05/18/2025 1:30 PM EST Appointment [facility] Radiology [address], [address] Wing [address] [place] [address] 05/18/2025 1:30 PM EST [facility]ointment [facility] [address], 1[address] [place] [address] 05/18/2025 2:00 PM EST Pharmacist Visit [facility] [address] [place] [phone] 05/22/2025 11:15 AM EST Consult [facility] [address], [address] [place] [address] Nigel Recinos MD [address] [place] [address] 05/25/2025 11:30 AM EST Appointment [facility] [address] [place] [phone] 05/25/2025 2:00 PM EST Appointment [facility] Pulmonary Function Testing [address] [place] [address] 05/25/2025 3:30 PM EST Appointment Cardiac Imaging [address] [place] [address] 05/31/2025 4:30 PM EST Appointment [facility] [place] [address] Janice Valdes [address] [address] 06/20/2025 10:30 AM EST Procedure Visit [facility] [address] 1[address] [place] [address] Claire Davidson MD [address] [facility] [place] [address] 06/21/2025 2:00 PM EST Office Visit [facility] [address] [facility], [address] [place] [address] Claire Davidson MD [address] [id number] [place] [address] documented as of this encounter [...] documented as of this encounter Care Teams Lab Support Tech Relationship Specialty Start Date End Date Trevor Rolon DO [address] [address] PCP - General 11/22/20 Mc Grant DO [address] [address] Referring Physician Gastroenterology 02/21/24 El Agarwal APRN [address] [place] [address] Referring Physician Gastroenterology 03/21/25 documented as of this encounter
--- OUTSIDE RECORDS SUMMARY | 2025-04-11 14:06 | XMS_ITS | Encounter Summary ---
Author Organization [facility] Address [address] [place] [address] Care Team Providers Care Documentation Consultant Name Role Phone Trevor Rolon DO Primary Care Provider [phone] Mc Grant DO Unavailable [phone] El Agarwal FINAL INSPECTOR [employer]UCK TRAILER Unavailable [phone] Encounter Details Date Type Department Care Team (Late st Contact Info) Description 03/28/2025 Telephone [facility] [address] [facility] [address] [place] [address] Sharri Almonte [place] [id number] Social History Tobacco Use Types Packs/Day Years [...] Telephone Encounter - Sharri Almonte - 03/28/2025 2:53 PM EDT Received a call back from Ms Peña - confirmed appointment. Provided reminder of appointment date/time. Reminded to bring ID, insurance information, all medications or current medication list; reminded to bring all completed paperwork. Reminded to bring support person and to wear masks. Reminded that there is no fasting required for labs and to expect a long appointment. Encouraged a call if she have additional questions or is unable to attend/ needs to reschedule. Noted that I will be out of the office on Friday 03/30 and Monday 04/02 - provided alternate contact for Laquita Brijesh ([phone]). documented in this encounter Plan of Treatment Upcoming Encounters Date Type Department Care Team (Late st Contact Info) Description 05/14/2025 2:00 PM EST Appointment [facility] [address] [place] [address] 05/18/2025 9:15 AM EST Clinical Support [facility] [place] [address] [place] [address] 05/18/2025 9:30 AM EST Clinical Support [facility] [place] [address] [place] [address] CH - CLINICAL NUTRITION [address] [place] [address] 05/18/2025 10:50 AM EST Office Visit [facility] [place] [address] [place] [address] Nj Johns MD [address] [place] [address] 05/18/2025 11:30 AM EST Social Work [facility] [place] [address] [place] [address] Thuy Dasilva, [place] [address] 05/18/2025 1:00 PM EST Appointment [facility] Radiology [address] [place] [address] 05/18/2025 1:30 PM EST Appointment [facility] Radiology [address] [place] [address] 05/18/2025 1:30 PM EST Appointment [facility] Radiology [address], 1[address] [place] [address] 05/18/2025 2:00 PM EST Pharmacist Visit [facility] [address] [place] [address] 05/22/2025 11:15 AM EST Consult [facility] [address], [address] [place] [address] Nigel Recinos MD [address] [facility] [address] [place] [address] 05/25/2025 11:30 AM EST Appointment [facility] [address] [place] [address] 05/25/2025 2:00 PM EST Appointment [facility] Pulmonary Function Testing [address] [place] [address] 05/25/2025 3:30 PM EST Appointment Cardiac Imaging [address] [place] [address] 05/31/2025 4:30 PM EST Appointment [facility] [address] [place] [address] 06/20/2025 10:30 AM EST Procedure Visit [facility] [address] [place] [address] Claire Davidson MD [address] [place] [address] 06/21/2025 2:00 PM EST Office Visit [facility] [address] [facility], [address] [place] [address] Claire Davidson MD [address] [place] [address] documented as of this encounter [...] documented as of this encounter Care Teams Documentation Consultant Relationship Specialty Start Date End Date Trevor Rolon DO [address] [facility] [address] [place] [address] PCP - General 11/22/20 Mc Grant DO [address] [facility] [address] [place] [address] Referring Physician Gastroenterology 02/21/24 El Agarwal APRN [address] [place] [address] Referring Physician Gastroenterology 03/21/25 documented as of this encounter
--- OUTSIDE RECORDS SUMMARY | 2025-04-11 14:06 | XMS_ITS | Encounter Summary ---
Author Organization [facility] Address [address] [place] [address] Care Team Providers Care Coffin Maker Name Role Phone Trevor Rolon DO Primary Care Provider Mc Grant DO Unavailable [phone] El Agarwal JAR CAPPER Unavailable [phone] Reason for Referral * Consultation (Routine) - Closed Specialty Diagnoses / Procedures Referred By Truong bella Referred To Contact Transplant Diagnoses End-stage liver disease (CMS/HCC) Asael Esteves MD [address] [address] Phone: tel: fax: [facility] [place] [address] [address] Phone: tel: fax: Referral ID Status Reason Start Date Expiration Date V isits Requested Visits Authorized [id number] Closed Specialty Services Required 03/21/2025 09/20/2026 1 1 Reason for Visit * Reason Comments Appointment Encounter Details Date Type Department Care Team (Late st Contact Info) Description 03/21/2025 Telephone [facility] [place] [address] [place] [address] [place] [address] Appointment Social History Tobacco Use Types Packs/Day Years [...] * Telephone Encounter - Sharri Almonte - 03/21/2025 2:10 PM EDT Called to schedule New Patient Pre-Liver Initial Clinic Evaluation - scheduled for 04/03/2025 at 6:30am. documented in this encounter Plan of Treatment Upcoming Encounters Date Type Department Care Team (Late st Contact Info) Description 05/14/2025 2:00 PM EST Appointment [facility] [address] [place] [address] 05/18/2025 9:15 AM EST Clinical Support [facility] [place] [address] [address] 05/18/2025 9:30 AM EST Clinical Support [facility] [place] [address] [place] [phone] CH - CLINICAL NUTRITION [address] [place] [address] 05/18/2025 10:50 AM EST Office Visit [facility] [address] [place] [phone] Nj Johns MD [address] [place] [phone] 05/18/2025 11:30 AM EST Social Work [facility] [address] [place] [address] Thuy Dasilva, [place] [address] 05/18/2025 1:00 PM EST Appointment [facility] [address] [place] [address] 05/18/2025 1:30 PM EST Appointment [facility] [address] [place] [phone] 05/18/2025 1:30 PM EST Appointment [facility] [address] [place] [address] 05/18/2025 2:00 PM EST Pharmacist Visit [facility] [address] [place] [phone] 05/22/2025 11:15 AM EST Consult [facility] [address] [place] [phone] Nigel Recinos MD [address] [place] [address] 05/25/2025 11:30 AM EST Appointment [facility] [address] [place] [address] 05/25/2025 2:00 PM EST Appointment [facility] Pulmonary Function Testing [address] [place] [phone] 05/25/2025 3:30 PM EST Appointment Cardiac Imaging [address] [place] [address] 05/31/2025 4:30 PM EST Appointment [facility] [address] [place] [address] 06/20/2025 10:30 AM EST Procedure Visit [facility] [address] [place] [address] Claire Davidson MD [address] [place] [address] 06/21/2025 2:00 PM EST Office Visit [facility] [address] [facility] [place] [address] Claire Davidson MD [address] [place] [address] Scheduled Referrals Name Type Priority Associated Diagnoses Order Schedule Initial Clinic Evaluation - Transplant Hepatology Outpatient Referral Routine End-stage liver disease (CMS/HCC) 1 Occurrences starting 03/21/2025 until 09/22/2026 documented as of this encounter Results * Alcohol Urine (04/03/2025 8:09 AM EDT) Alcohol Urine Negative Negative 04/03/2025 10:[address] [facility] Urine Urine specimen obtained by clean catch procedure / Unknown Non-blood Collection / Unknown 04/03/2025 8:09 AM EDT 04/03/2025 8:[address] [facility] - 04/03/2025 10:25 AM EDT The correlation between urine and serum ethanol concentration is highly variable. Test performed by Gas Chromatography at the [facility]. This test was developed and its performance characteristics determined by [facility]. It has not been cleared or approved by the FDA.The laboratory is regulated under CLIA as qualified to perform high-complexity testing. This test is used for clinical purposes only. The correlation between urine and serum ethanol concentration is highly variable. Test performed by Gas Chromatography at the [facility]. This test was developed and its performance characteristics determined by [facility]. It has not been cleared or approved by the FDA.The laboratory is regulated under CLIA as qualified to perform high-complexity testing. This test is used for clinical purposes only. us Asael Esteves MD LAB URINE ORDERABLES Final Resul t [facility] [address] [place] [address] * (ABNORMAL) Comprehensive Urine Drug Screening, Qualitative Assay, >= 27 Drug Classes (58:09 AM EDT) Acetaminophen Negative Negative 04/04/2025 8:[address] [facility] Alprazolam Negative Negative 04/04/2025 8:[address] [facility] Amantadine Negative Negative 04/04/2025 8:[address] [facility] Amitriptyline Negative Negative 04/04/2025 8:[address] [facility] Amphetamine Negative Negative 04/04/2025 8:[address] [facility] Atenolol Negative Negative 04/04/2025 8:[address] [facility] Benzoylecgonine Negative Negative 8:[address] [facility] Bisoprolol Negative Negative 04/04/2025 8:[address] [facility] Bupropion Negative Negative 04/04/2025 8:[address] [facility] Butalbital Negative Negative 04/04/2025 8:[address] [facility] Carbamazepine Negative Negative 04/04/2025 8:[address] [facility] Carisoprodol Negative Negative 04/04/2025 8:[address] [facility] Chlorpheniramine Negative Negative 04/04/20 8:[address] [facility] Citalopram Negative Negative 04/04/2025 8:[address] [facility] Clindamycin Negative Negative 04/04/2025 8:[address] [facility] Clonidine Negative Negative 04/04/2025 8:[address] [facility] Clopidogrel / Ticlopidine Negative Negative 04/04/2025 8:[address] [facility] Cocaethylene Negative Negative 04/04/2025 8:[address] [facility] Cocaine Negative Negative 04/04/2025 8:[address] [facility] Codeine Negative Negative 04/04/2025 8:[address] [facility] Cyclobenzaprine Positive(A) Negative 04/04/20 8:[address] [facility] Desvenlafaxine Negative Negative 04/04/2025 8:[address] [facility] Dextromethorphan Negative Negative 04/04/20 8:[address] [facility] Diazepam Negative Negative 04/04/2025 8:[address] [facility] Diltiazem Negative Negative 04/04/2025 8:[address] [facility] Diphenhydramine Negative Negative 8:[address] [facility] Doxepine Negative Negative 04/04/2025 8:[address] [facility] Doxylamine Negative Negative 04/04/2025 8:[address] [facility] EDDP-Methadone metabolite Negative Negative 04/04/2025 8:[address] [facility] Fentanyl Negative Negative 04/04/2025 8:[address] [facility] Fluconazole Positive(A) Negative 04/04/2025 8:[address] [facility] Fluoxetine Negative Negative 04/04/2025 8:[address] [facility] Guaifenesin Negative Negative 04/04/2025 8:[address] [facility] Haloperidol Negative Negative 04/04/2025 8:[address] [facility] Heroin/6-FROYLAN Negative Negative 04/04/2025 8:[address] [facility] Hydrocodone Negative Negative 04/04/2025 8:[address] [facility] Hydroxyzine / Cetirizine metabolite Negative Negative 04/04/2025 8:[address] [facility] Ibuprofen Negative Negative 04/04/2025 8:[address] [facility] Imipramine Negative Negative 04/04/2025 8:[address] [facility] Ketamine Negative Negative 04/04/2025 8:[address] [facility] Labetolol Negative Negative 04/04/2025 8:[address] [facility] Lamotrigine Negative Negative 04/04/2025 8:[address] [facility] Levetiracetam Negative Negative 04/04/2025 8:[address] [facility] Lidocaine Negative Negative 04/04/2025 8:[address] [facility] MDA Negative Negative 04/04/2025 8:[address] [facility] MDMA Negative Negative 04/04/2025 8:[address] [facility] Memantine Negative Negative 04/04/2025 8:[address] [facility] Meperidine Negative Negative 04/04/2025 8:[address] [facility] Meprobamate Negative Negative 04/04/2025 8:[address] [facility] Metaxalone Negative Negative 04/04/2025 8:[address] [facility] Methamphetamine Negative Negative 8:[address] [facility] Methocarbamol Negative Negative 04/04/2025 8:[address] [facility] Methylecgonine Negative Negative 04/04/2025 8:[address] [facility] Metoclopramide Negative Negative 04/04/2025 8:[address] [facility] Metoprolol Positive(A) Negative 04/04/2025 8:[address] [facility] Metronidazole Negative Negative 04/04/2025 8:[address] [facility] Midazolam Negative Negative 04/04/2025 8:[address] [facility] Midazolam Metabolite Negative Negative 04/04/2025 8:[address] [facility] Mirtazapine Negative Negative 04/04/2025 8:[address] [facility] Misc Test Result Negative Negative 04/04/20 8:[address] [facility] Naproxen Negative Negative 04/04/2025 8:[address] [facility] Nefazodone Negative Negative 04/04/2025 8:[address] [facility] Norfentanyl Negative Negative 04/04/2025 8:[address] [facility] Nortriptyline Negative Negative 04/04/2025 8:[address] [facility] Ordanstron Negative Negative 04/04/2025 8:[address] [facility] Oxcarbazepine Negative Negative 04/04/2025 8:[address] [facility] Oxycodone Positive(A) Negative 04/04/2025 8:[address] [facility] Paroxethine Negative Negative 04/04/2025 8:[address] [facility] Phenobarbital Negative Negative 04/04/2025 8:[address] [facility] Phentermine Negative Negative 04/04/2025 8:[address] [facility] Phenytoin Negative Negative 04/04/2025 8:[address] [facility] Primidone Negative Negative 04/04/2025 8:[address] [facility] Promethazine Negative Negative 04/04/2025 8:[address] [facility] Propofol Negative Negative 04/04/2025 8:[address] [facility] Propranolol Negative Negative 04/04/2025 8:[address] [facility] Quetiapine Negative Negative 04/04/2025 8:[address] [facility] Quinine Negative Negative 04/04/2025 8:[address] [facility] Rantidine Negative Negative 04/04/2025 8:[address] [facility] Sertraline Negative Negative 04/04/2025 8:[address] [facility] Spironolactone Positive(A) Negative 8:[address] [facility] Tizanidine Negative Negative 04/04/2025 8:[address] [facility] Topiramate Negative Negative 04/04/2025 8:[address] [facility] Tramadol Negative Negative 04/04/2025 8:[address] [facility] Trazadone/ Trazadone metabolite Negative Negative 04/04/2025 8:[address] [facility] Trimethoprim Negative Negative 04/04/2025 8:[address] [facility] Valproic Acid Negative Negative 04/04/2025 8:[address] [facility] Venlafaxine Negative Negative 04/04/2025 8:[address] [facility] Verapamil Negative Negative 04/04/2025 8:[address] [facility] Zolpidem Negative Negative 04/04/2025 8:[address] [facility] Xylazine Negative Negative 04/04/2025 8:[address] [facility] Urine Urine specimen obtained by clean catch procedure / Unknown Non-blood Collection / Unknown 04/03/2025 8:09 AM EDT 04/03/2025 8:43 AM EDT Asael Esteves MD LAB URINE ORDERABLES Final Resul t Performing Organization Address City/[facility]/ZIP Co de Phone Number [facility] [address] [place] [address] * Hepatitis A Antibody IgG (04/03/2025 6:38 AM EDT) Hepatitis A Antibody IgG Negative Negative 04/03/2025 8:[address] [facility] Blood Venous blood specimen / Unknown Venipuncture / Unknown 04/03/2025 6:38 AM EDT 04/03/2025 7:02 AM EDT Asael Esteves MD LAB BLOOD ORDERABLES Final Resul t Performing Organization Address City/[facility] Co de Phone Number [facility] [address] [place] [address] * HEPATITIS B SURFACE ANTIBODY, QUANTITATIVE (04/03/2025 6:38 AM EDT) Hepatitis B Surface Antibody, Quantitative <8.00 NonReactiv e: <8, Grayzone: 8 - <12, Reactive: >= 12 mIU/mL 04/03/2025 8:[address] [facility] Comment: Nonreactive. Individual is considered not immune to HBV infection. Blood Venous blood specimen / Unknown Venipuncture / Unknown 04/03/2025 6:38 AM EDT 04/03/2025 7:02 AM EDT us Asael Esteves MD LAB BLOOD ORDERABLES Final Resul t Performing Organization Address City/[facility]/ZIP Co de Phone Number [facility] [address] [place] [address] * Hepatitis B Surface Antigen (04/03/2025 6:38 AM EDT) Hepatitis B Surf Antigen Negative Negative 04/03/2025 8:47 AM EDT [facility] Blood Venous blood specimen / Unknown Venipuncture / Unknown 04/03/2025 6:38 AM EDT 04/03/2025 7:02 AM EDT us Asael Esteves MD LAB BLOOD ORDERABLES Final Resul t Performing Organization Address City/[facility] Co de Phone Number [facility] [address] [place] [address] * Hepatitis C Antibody (04/03/2025 6:38 AM EDT) Pathologist [facility] Hepatitis C Antibody Negative Negative 04/03/2025 7:44 AM EDT [facility] Blood Venous blood specimen / Unknown Venipuncture / Unknown 04/03/2025 6:38 AM EDT 04/03/2025 7:02 AM EDT us Asael Esteves MD LAB BLOOD ORDERABLES Final Resul t Performing Organization Address City/[facility] [place] [address] * (ABNORMAL) Nicotine Cotinine Metabolite (04/03/2025 6:38 AM EDT) NICOTINE <5 <5 ng/mL 04/04/2025 9:[address] [facility] Cotinine 32(H) <5 ng/mL 04/04/2025 9:[address] [facility] Blood Venous blood specimen / Unknown Venipuncture / Unknown 04/03/2025 6:38 AM EDT 04/03/2025 7:02 AM EDT [facility] - 04/04/2025 9:54 AM EDT Testing performed by LC-MS/MS at the [facility]. This test was developed and its performance characteristics determined by [facility]. This assay has not been cleared by the FDA. The laboratory is regulated under CLIA as qualified to perform high-complexity testing. This test is used for clinical purposes. Asael Esteves MD LAB BLOOD ORDERABLES Final Resul t Performing Organization Address [facility] de Phone Number [facility] [address] [place] [address] * (ABNORMAL) Protime-INR (04/03/2025 6:38 AM EDT) Prothrombin Time 16.3(H) 12.0 - 14.3 sec LAB COAGULATION METHOD 04/03/2025 7:[address] [facility] INR 1.3(H) 0.9 - 1.1 LAB COAGULATION METHOD 04/03/2025 7:[address] [facility] Blood Venous blood specimen / Unknown Venipuncture / Unknown 04/03/2025 6:38 AM EDT 04/03/2025 7:02 AM EDT [facility] - 04/03/2025 7:24 AM EDT OPTIMAL INR RANGES FOR PATIENT ON ORAL ANTICOAGULANT THERAPY Prevention of venous thromboembolism INR 2.0 to 3.0 In patients with heart disease: Atrial fibrillation INR 2.0 to 3.0 Valvular heart disease INR 2.0 to 3.0 Tissue heart valves INR 2.0 to 3.0 Mechanical prosthetic valves INR 2.5 to 3.5 Prevention of recurrent OH INR 2.5 to 3.5 Asael Esteves MD LAB BLOOD ORDERABLES Final Resul t Performing Organization Address [facility] Co de Phone Number [facility] [address] [place] [phone] * (ABNORMAL) Comprehensive metabolic panel (04/03/2025 6:38 AM EDT) Glucose, Plasma 164(H) 74 - 99 mg/dL 04/03/2025 7:[address] [facility] BUN, Plasma 19 7 - 21 mg/dL 04/03/2025 7:[address] [facility] Creatinine, Plasma 0.98 0.60 - 1.10 mg/dL 04/03/2025 7:[address] [facility] BUN/Creatinine Ratio 19 04/03/2025 7:[address] [facility] Sodium, Plasma 133(L) 136 - 145 mmol/L 04/03/2025 7:[address] [facility] Potassium, Plasma 4.9 3.6 - 4.9 mmol/L 04/03/2025 7:[address] [facility] Chloride, Plasma 100 97 - 107 mmol/L 04/03/2025 7:[address] [facility] CO2, Plasma 23 22 - 29 mmol/L 04/03/2025 7:[address] [facility] Anion Gap 10 6 - 16 mmol/L 04/03/2025 7:[address] [facility] Total Calcium, Plasma 9.5 8.9 - 10.2 mg/dL 04/03/2025 7:[address] [facility] Total Protein 7.0 6.3 - 7.9 g/dL 04/03/2025 7:[address] [facility] Albumin, Plasma 3.4(L) 3.5 - 5.2 g/dL 04/03/2025 7:[address] [facility] AST, Plasma 74(H) 10 - 35 U/L 04/03/2025 7:[address] [facility] ALT, Plasma 54(H) 10 - 35 U/L 04/03/2025 7:[address] [facility] Alkaline Phosphatase, Plasma 264(H) 35 - 104 U/L 04/03/2025 7:[address] [facility] Total Bilirubin, Plasma 2.0(H) 0.2 - 1.1 mg/dL 04/03/2025 7:[address] [facility] eGFRcr 68.3 mL/min/1.7 3m*2 04/03/2025 7:[address] [facility] Comment:Reported eGFRcr in m L/min/1.73m2 is based the CKD-EPI 2020 equation that does not use a race coefficient. Blood Venous blood specimen / Unknown Venipuncture / Unknown 04/03/2025 6:38 AM EDT 04/03/2025 7:01 AM EDT us Asael Esteves MD LAB BLOOD ORDERABLES Final Resul t [facility] [address] [place] [address] * (ABNORMAL) Hemogram (CBC) (04/03/2025 6:38 AM EDT) WBC Count 9.16 3.70 - 10.30 10*3/uL LAB HEMATOLOGY METHOD 04/03/2025 8:[address] [facility] RBC Count 4.07 3.90 - 5.20 10*6/uL LAB HEMATOLOGY METHOD 04/03/2025 8:[address] [facility] HGB 13.6 11.2 - 15.7 g/dL LAB HEMATOLOGY METHOD 04/03/2025 8:[address] [facility] HCT 41.4 34.0 - 45.0 % LAB HEMATOLOGY METHOD 04/03/2025 8:[address] [facility] Platelet Count 87(L) 155 - 369 10*3/uL LAB HEMATOLOGY METHOD 04/03/2025 8:[address] [facility] MCV 102(H) 79 - 98 fL LAB HEMATOLOGY METHOD 04/03/2025 8:[address] [facility] MCH 33.4(H) 26.0 - 32.0 pg LAB HEMATOLOGY METHOD 04/03/2025 8:[address] [facility] MCHC 32.9 30.7 - 35.5 g/dL LAB HEMATOLOGY METHOD 04/03/2025 8:[address] [facility] RDW 15.0(H) 11.5 - 14.5 % LAB HEMATOLOGY METHOD 04/03/2025 8:[address] [facility] MPV 9.7 8.8 - 12.5 fL LAB HEMATOLOGY METHOD 04/03/2025 8:[address] [facility] nRBC 0.0 <=0.0 per 100 WBCs LAB HEMATOLOGY METHOD 04/03/2025 8:35 AM EDT [facility] Blood Venous blood specimen / Unknown Venipuncture / Unknown 04/03/2025 6:38 AM EDT 04/03/2025 7:02 AM EDT Asael Esteves MD LAB BLOOD ORDERABLES Final Resul t Performing Organization Address City/[facility] [place] [address] * Alpha fetoprotein, serum (04/03/2025 6:38 AM EDT) Alpha Fetoprotein, Serum 6.5 <10.0 ng/mL 04/03/2025 7:38 AM EDT [facility] Blood Venous blood specimen / Unknown Venipuncture / Unknown 04/03/2025 6:38 AM EDT 04/03/2025 7:[address] [facility] - 04/03/2025 7:38 AM EDT Performed by [employer] electrochemiluminescent immunoassay which is traceable to the 1st AFP IRP WHO Reference standard 72/255. Results obtained with different test methods or kits cannot be used interchangeably. Asael Esteves MD LAB BLOOD ORDERABLES [place] [address] * ABO/Rh (04/03/2025 6:38 AM EDT) ABO/Rh A Positive 04/03/2025 8:00 AM EDT BLOOD BANK Blood Venous blood specimen / Unknown Venipuncture / Unknown 04/03/2025 6:38 AM EDT 04/03/2025 8:00 AM EDT us Asael Esteves MD LAB BLOOD BANK TEST ORDERABLES F inal Result BLOOD BANK [address] documented in this encounter Visit Diagnoses Diagnosis [...] documented as of this encounter Care Teams Coffin Maker Relationship Specialty Start Date End Date Trevor Rolon DO [address] [facility] [address] [place] [address] PCP - General 11/22/20 Mc Grant DO [address] [facility] [address] [place] [address] Referring Physician Gastroenterology 02/21/24 El Agarwal APRN [address] [place] [address] Referring Physician Gastroenterology 03/21/25 documented as of this encounter
--- OUTSIDE RECORDS SUMMARY | 2025-04-11 14:06 | XMS_ITS | Encounter Summary ---
Author Organization [facility] Address [address] [place] [address] Care Team Providers Care Director Security Management Name Role Phone Trevor Rolon DO Primary Care Provider Mc Grant DO Unavailable [phone] El Agarwal CYTOLOGY TEACHER Unavailable [phone] Reason for Referral * Transplant (Routine) - Authorized Specialty Diagnoses / Procedures Referred By Truong bella Referred To Contact Transplant Surgery / Transplant Diagnoses Cirrhosis of liver without ascites, unspecified hepatic cirrhosis type El Agarwal APRN [address] [place] [address] Phone: tel: fax: Referral ID Status Reason Start Date Expiration Date Visits Requested Visits Authorized [id number] Authorized Specialty Services Required 03/21/2025 09/20/2026 [id number] Encounter Details Date Type Department Care Team (Late st Contact Info) Description 03/21/2025 Community [facility] [address] [place] [address] El Agarwal CYTOLOGY TEACHER [address] [place] [phone] Cirrhosis of liver without ascites, unspecified hepatic cirrhosis type (CMS/HCC) (Primary Dx) Social History Tobacco Use [...] Info) Description 05/14/2025 2:00 PM EST Appointment [facility] [address] [place] [phone] 05/18/2025 9:15 AM EST Clinical Support [facility] [place] [address] [address] 05/18/2025 9:30 AM EST Clinical Support [facility] [place] [address] [address] CH - CLINICAL NUTRITION [address] [place], [place] [phone] 05/18/2025 10:50 AM EST Office Visit [facility] [place] [address] [place] [address] Nj Johns MD [address] [place] [address] 05/18/2025 11:30 AM EST Social Work [facility] [place] [address] [place] [address] Thuy Dasilva, [place] [address] 05/18/2025 1:00 PM EST Appointment [facility] Radiology [address] [place] [address] 05/18/2025 1:30 PM EST Appointment [facility] [address], 1st [place] [address] 05/18/2025 1:30 PM EST Appointment [facility]iology [address], 1st [place] [address] 05/18/2025 2:00 PM EST Pharmacist Visit [facility] [address] [place] [address] 05/22/2025 11:15 AM EST Consult [facility] [address], 1st [place] [address] Nigel Recinos MD [address] [place] [address] 05/25/2025 11:30 AM EST Appointment [facility] Rad[facility] [address] [place] [address] 05/25/2025 2:00 PM EST Appointment [facility] Pulmonary Function Testing [address] [place] [address] 05/25/2025 3:30 PM EST Appointment Cardiac Imaging [address] [place] [address] 05/31/2025 4:30 PM EST Appointment [facility] [address] Building [address] [place] [address] 06/20/2025 10:30 AM EST Procedure Visit [facility] [address], 1st [place] [address] Claire Davidson MD [address] [place] [address] 06/21/2025 2:00 PM EST Office Visit [facility] [address] [facility], [address] [place] [address] Claire Davidson MD [address] [facility] [address] [place] [address] Scheduled Referrals Name Type Priority Associated Diagnoses Orde r Schedule Ambulatory referral to Liver Transplant Team Outpatient Referral Routine Cirrhosis of liver without ascites, unspecified hepatic cirrhosis type (CMS/HCC) Expected: 03/21/2025 (Approximate), Expires: 09/22/2026 documented as of this encounter Visit Diagnoses Diagnosis Cirrhosis of liver without ascites, unspecified hepatic cirrhosis type- Primary documented in this encounter Additional Health Concerns Assessment Noted Time PHQ-9 Depression Total Score: 12 024 7:48 AM EDT A fall risk assessment has been complete d for the patient 03/08/2025 8:18 AM EDT A Body Mass Index follow-up plan has been documented for the patient 03/08/2025 9:29 AM EDT documented as of this encounter Care Teams Director Security Management Relationship Specialty Start Date End Date Trevor Rolon DO [address] [place] [address] PCP - General 11/22/20 Mc Grant DO [address] [place] [address] Referring Physician Gastroenterology 02/21/24 El Agarwal APRN [address] [place] [address] Referring Physician Gastroenterology 03/21/25 documented as of this encounter
--- OUTSIDE RECORDS SUMMARY | 2025-04-11 14:06 | XMS_ITS | Encounter Summary ---
Author Organization [facility] nter Address [address] [place] [address] Care Team Providers Care Media Analytics Manager Name Role Phone Trevor Rolon DO Primary Care Provider Lucy Christopher DO Unavailable Encounter Details Date Type Department Care Team (Late st Contact Info) Description 02/14/2024 Orders Only [facility] [address], 8th Floor Clinic [place] [phone] Lupe Villalta, SET UP MECHANIC COATING MACHINES [address] [place] [address] Social History Tobacco Use Types [...] How often do you attend chur or yazidi services? More than 4 times per year [...] Recorded Patient Health Questionnaire-2 Score 0 09/28/2023 [facility] Health - Occupational Stress Questionnaire [...] ULTRASOUND [address], 2nd [place] [address] 05/07/2025 3:00 PM EDT Appointment [facility] MAMMOGRAPHY SERVICES FARRUKH D [address] [place] [address] 06/18/2025 10:30 AM EST Office Visit [facility] GASTROENTER[facility] [address], 2nd Floor [facility] [place] [address] 06/27/2025 10:00 AM EST Office Visit [facility] SLEEP LAB PRACTICE [address] [place] [address] Marcelina Hyde NP [address] [...] documented as of this encounter Care Teams Media Analytics Manager Relationship Specialty Start Date End Date Trevor Rolon DO [address] [facility] [address] [place] [address] PCP - General Lucy Christopher DO [address] [place] [address] Consulting Physician Oncology 10/17/24 documented as of this encounter
--- OUTSIDE RECORDS SUMMARY | 2025-04-11 14:06 | XMS_ITS | Encounter Summary ---
Author Organization [facility] nter Address [address] [place] [address] Care Team Providers Care Engineer Geophysical Laboratory Name Role Phone Trevor Rolon DO Primary Care Provider Lucy Christopher DO Unavailable Encounter Details Date Type Department Care Team (Late st Contact Info) Description 02/16/2024 Orders Only [facility]OLOG[facility]ACT[facility] [address], 2nd [place] [address] Rosita Cortez, CORWIN [address] [place] [phone] Social History Tobacco Use Types Packs/Day Years [...] week 07/24/2022 How often do you attend [facility] or rastafari services? More than 4 times [...] Recorded Patient Health Questionnaire-2 Score 0 09/28/2023 [facility] Hospital[facility] ional Health - Occupational Stress Questionnaire [...] [facility] ULTRASOUND [address], 2nd [place] [address] 05/07/2025 3:00 PM EDT Appointment [facility] MAMMOGRAPHY SERVICES BLCHARLES D [address], [place] [address] 06/18/2025 10:30 AM EST Office Visit [facility] [address], 2nd [place] [address] 06/27/2025 10:00 AM EST Office Visit [facility] [address] [place] [address] NovemberMarcelina NP [address] [place] [address] 08/16/2025 10:00 AM EST Office Visit [facility] ENDOCRINOLOGY PRACTICE [address], 8th Floor Clinic [place] [address] Brigitte Mahoney NP [address] [place] [address] 09/18/2025 1:30 PM EDT Office Visit [facility] RHEUMATOLOGY PRACTICE [address], 8th [place] [address] Suman Treviño MD [address] [place] [place] [address] 12/13/2025 11:00 AM EDT Office Visit [facility] OBGYN PRACTICE [address], 7th [place] [address] Janice Woodward, CLAU [address] [place] [phone] documented as of this encounter Visit Diagnoses Not on filedocumented in this encounter Additional Health Concerns Assessment Noted Time PHQ-9 Depression Total Score: 0 07/24/19 23 3:00 PM EST documented as of this encounter Care Teams Engineer Geophysical Laboratory Relationship Specialty Start Date End Date Trevor Rolon DO [address] [facility] [address] [place] [address] PCP - General Lucy Christopher DO [address] [place] [facility]01 Consulting Physician Oncology 10/17/24 documented as of this encounter
--- OUTSIDE RECORDS SUMMARY | 2025-04-11 14:06 | XMS_ITS | Encounter Summary ---
Author Organization [facility] Address [address] [place] [address] Care Team Providers Care Home Health Nurse Name Role Phone Trevor Rolon DO Primary Care Provider [phone] Mc Grant DO Unavailable [phone] El Agarwal BATTERY TESTER AND REPAIRER Unavailable [phone] Reason for Visit * Reason Comments Referral - Liver Txp Encounter Details Date Type Department Care Team (Late st Contact Info) Description 03/21/2025 Telephone [facility] [address] [place] [address] Sharri Almonte [place] [phone] Referral - Liver Txp Social History Tobacco Use Types Packs/Day Years [...] Telephone Encounter - Sharri Almonte - 03/21/2025 12:57 PM EDT Updated New Patient referral from El Agarwal. Scheduling pending insurance review. documented in this encounter Plan of Treatment Upcoming Encounters Date Type Department Care Team (Late st Contact Info) Description 05/14/2025 2:00 PM EST Appointment [facility] [address] [place] [address] 05/18/2025 9:15 AM EST Clinical Support [facility] [address] [facility] [address] [place] [address] 05/18/2025 9:30 AM EST Clinical Support [facility] [address] [facility] [address] [place] [address] CH - CLINICAL NUTRITION [address] [place] [address] 05/18/2025 10:50 AM EST Office Visit [facility] [address] [place] [address] Nj Johns MD [address] [facility] [address] [place] [address] 05/18/2025 11:30 AM EST Social Work [facility] [address] [facility] [address] [place] [address] Thuy Dasilva, [place] [address] 05/18/2025 1:00 PM EST Appointment [facility] Radiology [address] [place] [address] 05/18/2025 1:30 PM EST Appointment [facility] [address], 1st [place] [address] 05/18/2025 1:30 PM EST Appointment [facility] [address], 1st [place] [address] 05/18/2025 2:00 PM EST Pharmacist Visit [facility] [address] [place] [address] 05/22/2025 11:15 AM EST Consult [facility] [address], 1st [place] [address] Nigel Recinos MD [address] [place] [address] 05/25/2025 11:30 AM EST Appointment [facility] Radiology [address] [place] [address] 05/25/2025 2:00 PM EST Appointment [facility] Pulmonary Function Testing 800 [place] [address] 05/25/2025 3:30 PM EST Appointment Cardiac Imaging [address] [place] [address] 05/31/2025 4:30 PM EST Appointment [facility] [address] [place] [address] 06/20/2025 10:30 AM EST Procedure Visit [facility] [address], 1st [place] [address] Claire Davidson MD [address] [facility] [address] [place] [address] 06/21/2025 2:00 PM EST Office Visit [facility] Specialty Care Clinic [address] [facility], [address] [place] [address] Claire Davidson MD [address] [place] [address] documented as of this encounter Procedures Procedure Name Priority Date/Time Associated Diagnosis Comments PROTHROMBIN TIME(PT) / INR Routine 02/27/2025 CREATININE, PLASMA Routine 02/26/2025 SODIUM, PLASMA Routine 02/26/2025 TOTAL BILIRUBIN, PLASMA Routine 02/26/2025 ALBUMIN, PLASMA Routine 02/26/2025 documented in this encounter Results * Prothrombin Time/INR (02/27/2025) External Prothrombin Time (PT) 14.4 External INR - Internormal Ratio 1.28 Blood Venous blood specimen / Unknown 02/27/2025 Result [facility] Provider LAB BLOOD ORDERABLES Final R esult * Albumin, Plasma (02/26/2025) External Albumin 3.1 g/dL Blood Venous blood specimen / Unknown 02/26/2025 Result [facility] Provider LAB BLOOD ORDERABLES Final R esult * Total Bilirubin, Plasma (02/26/2025) External Bilirubin Total 2.5 mg/dL Blood Venous blood specimen / Unknown 02/26/2025 Result [facility] LAB BLOOD ORDERABLES Final R esult * Creatinine, Plasma (02/26/2025) External Creatinine Blood 0.7 mg/dL Blood Venous blood specimen / Unknown 02/26/2025 us Historical Provider LAB BLOOD ORDERABLES Final R esult * Sodium, Plasma (02/26/2025) External Sodium 133 mmol/L Blood Venous blood specimen / Unknown 02/26/2025 [facility] Provider LAB BLOOD ORDERABLES Final R esult documented in this encounter Visit Diagnoses Not [...] as of this encounter Care Teams Home Health Nurse Relationship Specialty Start Date End Date Trevor Rolon DO [address] [facility] [address] [place] [address] PCP - General 11/22/20 Mc Grant DO [address] [facility] [address] [place] [address] Referring Physician Gastroenterology 02/21/24 El Agarwal APRN [address] [place] [address] Referring Physician Gastroenterology 03/21/25 documented as of this encounter
--- OUTSIDE RECORDS SUMMARY | 2025-04-11 14:06 | XMS_ITS | Encounter Summary ---
Author Organization [facility] nter Address [address] [place] [address] Care Team Providers Care Sustainability Executive Director Name Role Phone Trevor Rolon DO Primary Care Provider Lucy Christopher DO Unavailable Reason for Visit * Reason Comments Med Refill Encounter Details Date Type Department Care Team (Late st Contact Info) Description 09/14/2023 Refill [facility] NEUROLOGY PRACTICE [address], 8th Floor Clinic [place] [phone] Lupe Villalta, ASSISTANT MANAGER BILINGUAL [address] [facility] [place] [address] Social History Tobacco Use Types [...] How often do you attend chur or gnosticist services? More than 4 times [...] Recorded Patient Health Questionnaire-2 Score 0 07/24/2022 [facility] [place] of Occupat ional Health - Occupational Stress [...] ULTRASOUND [address], 2nd [place] [address] 05/07/2025 3:00 PM EDT Appointment [facility] MAMMOGRAPHY SERVICES FARRUKH Klein [address] [place] [address] 06/18/2025 10:30 AM EST Office Visit [facility] [address], 2nd [place] [address] 06/27/2025 10:00 AM EST Office Visit [facility] SLEEP [facility] [address] [place] [address] Marcelina Hyde NP [address] [place] [address] 08/16/2025 10:00 AM EST Office Visit [facility] ENDOCRINOLOGY PRACTICE [address], 8th [place] [address] Brigitte Mahoney NP [address] [place] [address] 09/18/2025 1:30 PM EDT Office Visit [facility] RHEUMATOLOGY PRACTICE [address], 8th [place] [address] Suman Treviño MD [address] [facility]. [place] [address] 12/13/2025 11:00 AM EDT Office Visit [facility] OBGYN PRACTICE [address], 7th [place] [address] Janice Woodward NP [address] [place] [phone] documented as of this encounter Visit Diagnoses Not on filedocumented in this encounter Additional Health Concerns Assessment Noted Time PHQ-9 Depression Total Score: 0 07/24/19 23 3:00 PM EST documented as of this encounter Care Teams Sustainability Executive Director Relationship Specialty Start Date End Date Trevor Rolon DO [address] [facility] [address] [place] [address] PCP - General Lucy Christopher DO [address] [place] [address] Consulting Physician Oncology 10/17/24 documented as of this encounter
--- OUTSIDE RECORDS SUMMARY | 2025-04-11 14:06 | XMS_ITS | Encounter Summary ---
Author Organization [facility] Address [address] [place] [address] Care Team Providers Care Boatwright Name Role Phone Trevor Rolon DO Primary Care Provider [phone] Mc Grant DO Unavailable [phone] El Agarwal UNDERGROUND ELECTRICIAN Unavailable [phone] Encounter Details Date Type Department Care Team (Latest Contact Info) Description 04/03/2025 Travel Social History Tobacco Use Types Packs/Day [...] doing things Several days 04/03/2025 7:06 AM Romi Houston Feeling down, depressed, or hopeless More than half the days 04/03/2025 7:06 AM EDSanford Wagner Patient Health Questionnaire-2 Score 3 04/03/2025 7:06 AM EDSanford Wagner * Question Answer Date of Assessment Author Trouble falling or staying asleep, or sleeping too much Nearly every day 04/03/2025 7:06 AM EDSanford Wagner Feeling tired or having little energy Nearly every day 04/03/2025 7:06 AM EDSanford Wagner Poor appetite or overeating Nearly every day 04/03/2025 7:06 AM Sanford Houston A Feeling bad about yourself - or [...] Health Questionnaire-9 Score 18 04/03/2025 7:06 AM EDSanford Wagner * How difficult have these problems made it for you to do your work, take care of things at home, or get along with other people? Answer Date of Assessment Author Very difficult 04/03/2025 7:06 AM Elosia Houston documented as of this encounter Plan of Treatment Upcoming Encounters Date Type Department Care Team (Late st Contact Info) Description 05/14/2025 2:00 PM EST Appointment [facility] [address] [place] [address] 05/18/2025 9:15 AM EST Clinical Support [facility] Transplant Center [address] [place] [address] 05/18/2025 9:30 AM EST Clinical Support [facility] Transplant Center [address] [place] [address] Kaley Almanza, XAVI CH - CLINICAL NUTRITION [address] [place] [address] 05/18/2025 10:50 AM EST Office Visit [facility] Transplant Center [address] [place] [address] Nj Johns MD [address] [place] [address] 05/18/2025 11:30 AM EST Social Work [facility] Transplant Center [address] [place] [address] Thuy Dasilva, [place], [place] [phone] 05/18/2025 1:00 PM EST Appointment [facility] Radiology [address] [place] [address] 05/18/2025 1:30 PM EST Appointment [facility] Radiology [address], 1st [place] [address] 05/18/2025 1:30 PM EST Appointment [facility] Rad[facility] [address], 1st [place] [address] 05/18/2025 2:00 PM EST Pharmacist Visit [facility] Transplant Center [address] [place] [address] 05/22/2025 11:15 AM EST Consult [facility] [address], 1st [place] [address] Nigel Recinos MD [address] [place] [address] 05/25/2025 11:30 AM EST Appointment [facility] Radiology [address] [place] [address] 05/25/2025 2:00 PM EST Appointment [facility] Pulmonary Function Testing 800 [place] [address] 05/25/2025 3:30 PM EST Appointment Cardiac Imaging [address] [place] [address] 05/31/2025 4:30 PM EST Appointment [facility] [place] [address] [address] Building [address] [place] [address] 06/20/2025 10:30 AM EST Procedure Visit [place] [facility] [address], 1st [place] [address] Claire Davidson MD [address] [address] 06/21/2025 2:00 PM EST Office Visit [facility] Special[facility] [address] [facility], [address] [place] [address] Claire Davidson MD [address] [address] documented as of this encounter [...] documented as of this encounter Care Teams Boatwright Relationship Specialty Start Date End Date Trevor Rolon DO [address] [address]- PCP - General 11/22/20 Mc Grant DO [address] [facility] [address] [place] [address] Referring Physician Gastroenterology 02/21/24 El Agarwal APRN [address] [place] [address] Referring Physician Gastroenterology 03/21/25 documented as of this encounter
--- OUTSIDE RECORDS SUMMARY | 2025-04-11 14:06 | XMS_ITS | Encounter Summary ---
Author Organization [facility] nter Address [address] [place] [address] Care Team Providers Care Ladler Name Role Phone Trevor Rolon DO Primary Care Provider Lucy Christopher DO Unavailable Reason for Visit * Reason Comments Med Refill Encounter Details Date Type Department Care Team (Late st Contact Info) Description 10/06/2023 Refill [facility] NEUROLOGY PRACTICE [address], 8th Floor Clinic [place] [phone] Lupe Villalta, TRANSITION TEACHER [address] [facility] [place] [address] Social History Tobacco Use Types [...] Patient Health Questionnaire-2 Score 0 09/28/2023 [facility] [place] of Occupat ional Health - Occupational Stress [...] ULTRASOUND [address], 2nd [place] [address] 05/07/2025 3:00 PM EDT Appointment [facility] FARRUKH Klein [address] [place] [address] 06/18/2025 10:30 AM EST Office Visit [facility] [address], 2nd [place] [address] 06/27/2025 10:00 AM EST Office Visit [facility] [address] [place] [address] Marcelina Hyde NP [address] [place] [address] 08/16/2025 10:00 AM EST Office Visit [facility] ENDOCRINOLOGY PRACTICE [address], 8th [place] [address] Brigitte Mahoney NP [address] [place] [address] 09/18/2025 1:30 PM EDT Office Visit [facility] RHEUMATOLOGY PRACTICE [address], 8th [place] [address] Suman Treviño MD [address] [facility]. [place] [address] 12/13/2025 11:00 AM EDT Office Visit [facility] OBGYN PRACTICE [address], 7th [place] [address] Janice Woodward NP [address] [place] [phone] documented as of this encounter Visit Diagnoses Not on filedocumented in this encounter Additional Health Concerns Assessment Noted Time PHQ-9 Depression Total Score: 0 07/24/19 23 3:00 PM EST documented as of this encounter Care Teams Ladler Relationship Specialty Start Date End Date Trevor Rolon DO [address] [facility] [address] [place] [address] PCP - General Lucy Christopher DO [address] [place] [address] Consulting Physician Oncology 10/17/24 documented as of this encounter
--- OUTSIDE RECORDS SUMMARY | 2025-04-11 14:06 | XMS_ITS | Encounter Summary ---
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) Abnormal tumor markers Procedures US liver doppler DE DUP-SCAN ARTL [place] ABDL/PEL/SCROT&/RPR ORGN LMT Aubrie Hyde NP [address] [place] [address] Phone: tel: fax: [facility] ULTRASOUND [address] [place] [address] Phone: tel: fax: Referral ID Status Reason Start Date Expiration Date V isits Requested Visits Authorized [id number] Closed Specialty Services Required 02/21/2024 02/20/2025 1 1 Encounter Details Date Type Department Care Team (Latest Contact Info) Description 02/21/[address] [facility] GASTROENTEROLOGY PRACTICE [address], 2nd Floor Clinic [place] [address] Aubrie Hyde NP [address] Bld[address] A [place] [address] Cirrhosis of liver with ascites, unspecified [...] How often do you attend [facility] or episcopal services? More than 4 times per year 07/24/2022 Do you belong to any clubs o r organizations such as mormon groups, unions, fraternal or athletic groups, or [...] Patient Health Questionnaire-2 Score 0 09/28/2023 [facility] of Occupat ional Health [...] [facility] ULTRASOUND [address], [address]nd [place] [address] 05/07/2025 3:[address] PM EDT Appointment [facility] MAMMOGRAPHY SERVICES BL D [address], [place] [address] 06/18/2025 10:30 AM EST Office Visit [facility]STRO[facility]ACT[facility] [address], 2nd [place] [address] 06/27/2025 10:00 AM EST Office Visit [facility] SLEEP [facility] [address], [place] [address] Marcelina Hyde NP [address] [place] [address] 08/16/2025 10:00 AM EST Office Visit [facility] ENDOCRIN[facility] [address], 8th [place] [address] Brigitte Mahoney NP [address] [place] [phone] 09/18/2025 1:30 PM EDT Office Visit [facility] RHEUMATOLOG[facility] [address], 8th [place] [address] Suman Treviño MD [address] [facility] [place] [address] 12/13/2025 11:00 AM EDT Office Visit [facility] OBGYN [facility] [address], 7th Floor Clinic [place] [address] Janice oWodward, CLAU [address] [place] [address] documented as of this encounter Results * [...] Newton MD 04/29/2024 10:41 AM EDT RPWorkstation: [id number] us Aubrie Hyde NP IMG US PROCEDURES Final Result * AFP tumor marker (04/28/2024 9:32 AM EDT) Pathologist [facility] AFP Tumor Marker 6.5 0.0 - 9.2 ng/mL 04/29/2024 4:06 AM EDT [facility] NICHOLAS) Comment: [employer] Electrochemiluminescence Immunoassay (ECLIA) Values obtained with different assay methods or kits cannot be used interchangeably. Results cannot be interpreted as absolute evidence of the presence or absence of malignant disease. This test is not interpretable in females. Blood Venous blood specimen / Unknown Venipuncture / Unknown 04/28/2024 9:32 AM EDT 04/28/2024 9:32 AM EDT Narrative BYRON PETERSON) - 04/29/2024 4:06 AM EDT Performed at: [address] [place] [id number] Mexican Food Maker: Raphael Edwards PhD, Phone: [phone] us Aubrie Hyde NP LAB BLOOD ORDERABLES Final Resul t BYRON PETERSON) [address] [place] [address], * (ABNORMAL) Protime-INR (04/28/2024 9:32 AM EDT) Pathologist [facility] Protime 12.9(H) 9.2 - 12.5 seconds LAB COAGULATION METHOD 04/28/2024 10:35 AM [facility] INR 1.22(H) 0.84 - 1.18 LAB COAGULATION METHOD 04/28/2024 10:35 AM [facility] Comment: The INR should only be used in stable anticoagulated patients. Recommended therapeutic ranges: Condition INR Prevention or treatment of DVT 2.0-3.0 Acute AZ Prevention of Stroke 2.0-3.0 Prevention of recurrent AZ 2.5-3.5 Atrial fibrillation Prevention of systemic embolism 2.0-3.0 Cardiac valve replacement (mechanical valves) 2.5-3.5 Blood Venous blood specimen / Unknown Venipuncture / Unknown 04/28/2024 9:32 AM EDT 04/28/2024 9:32 AM EDT Aubrie Hyde NP LAB BLOOD ORDERABLES Final Resul t [facility] [address] [place] [address], * (ABNORMAL) Hepatic function panel (04/28/2024 9:32 AM EDT) Total Bilirubin 1.5(H) 0.3 - 1.0 mg/dL 04/28/2024 11:09 AM [facility] Bilirubin, Direct 0.4(H) 0.0 - 0.2 mg/dL 04/28/2024 11:09 AM [facility] Alkaline Phosphatase 179(H) 29 - 108 U/L 04/28/2024 11:09 AM [facility] AST 53(H) 10 - 28 U/L 04/28/2024 11:09 AM [facility] ALT (SGPT) 30 <=40 U/L 04/28/2024 11:09 AM [facility] Albumin 3.7 3.5 - 5.1 g/dL 04/28/2024 11:09 AM [facility] Total Protein 7.3 5.9 - 7.9 g/dL 04/28/2024 11:09 AM [facility] Blood Venous blood specimen [...] NP LAB BLOOD ORDERABLES Final Resul t [facility] [address] [place] [address], * (ABNORMAL) Basic metabolic panel (04/28/2024 9:32 AM EDT) Glucose 117(H) 58 - 104 mg/dL 04/28/2024 11:49 AM [facility] Sodium 139 134 - 143 mmol/L 04/28/2024 11:49 AM [facility] Potassium 3.6 3.2 - 4.6 mmol/L 04/28/2024 11:49 AM [facility] Chloride 105 99 - 108 mmol/L 04/28/2024 11:49 AM [facility] CO2 28 19 - 29 mmol/L 04/28/2024 11:49 AM [facility] Anion Gap 6 5 - 15 mmol/L 04/28/2024 11:49 AM [facility] BUN 15 7 - 20 mg/dL 04/28/2024 11:49 AM [facility] Creatinine 0.83 <=1.20 mg/dL 04/28/2024 11:49 AM [facility] BUN/Creatinine Ratio 18.07 10.00 - 20.00 ratio 04/28/2024 11:49 AM [facility] Calcium 9.6 7.9 - 11.1 mg/dL 04/28/2024 11:49 AM [facility] eGFR (CKD-EPI) 80.2 >60.0 - 200.0 mL/min/1.7 3m*2 04/28/2024 11:49 AM [facility] Blood Venous blood specimen / Unknown Venipuncture / Unknown 04/28/2024 9:32 AM EDT 04/28/2024 9:32 AM EDT [facility] - 04/28/2024 11:49 AM EDT Please note possible changes in reference range and units reported due to change in methodology. us Aubrie Hyde CLAU LAB BLOOD ORDERABLES Final Resul t [facility] [address] [place] [address], * (ABNORMAL) CBC (04/28/2024 9:32 AM EDT) Auto WBC 4.8 3.8 - 11.0 10*3/uL 04/28/2024 10:21 AM [facility] RBC 4.43 3.73 - 5.13 10*6/uL 04/28/2024 10:21 AM [facility] Hemoglobin 14.9 11.2 - 15.3 g/dL 04/28/2024 10:21 AM [facility] Hematocrit 42.9 32.6 - 44.6 % 04/28/2024 10:21 AM [facility] MCV 96.9(H) 78.8 - 96.0 fL 04/28/2024 10:21 AM [facility] MCH 33.6(H) 26.2 - 33.0 pg 04/28/2024 10:21 AM [facility] MCHC 34.7 32.7 - 35.1 g/dL 04/28/2024 10:21 AM [facility] RDW 13.1 12.1 - 16.1 % 04/28/2024 10:21 AM [facility] Platelets 93(L) 138 - 402 10*3/uL 04/28/2024 10:21 AM [facility] MPV 8.2 7.0 - 10.6 fL 04/28/2024 10:21 AM EDT [facility] Blood Venous blood specimen / Unknown Venipuncture / Unknown 04/28/2024 9:32 AM EDT 04/28/2024 9:32 AM EDT us Aubrie May ELEVATOR ATTENDANT LAB BLOOD ORDERABLES Final Resul t [facility] [address] [place] [address], [place] [phone] documented in this encounter Visit Diagnoses Diagnosis [...] documented as of this encounter Care Teams Secret Service Agent Relationship Specialty Start Date End Date Trevor Rolon DO [address] [facility] [address] [place] [address] PCP - General Lucy Christopher DO [address] [facility] [place] [address] Consulting Physician Oncology 10/17/24 documented as of this encounter
--- OUTSIDE RECORDS SUMMARY | 2025-04-11 14:06 | XMS_ITS | Encounter Summary ---
Author Organization [facility] nter Address [address] [place] [address] Care Team Providers Care Systems Management Consultant Name Role Phone Trevor Rolon DO Primary Care Provider Lucy Christopher DO Unavailable Reason for Visit * Reason Comments Med Refill Encounter Details Date Type Department Care Team (Late st Contact Info) Description 09/29/2023 Refill [facility] NEUROLOGY PRACTICE [address], 8th Floor Clinic [place] [phone] Lupe Villalta, BLOCK TESTER [address] [facility] [place] [address] Social History Tobacco Use Types [...] Recorded Patient Health Questionnaire-2 Score 0 09/28/2023 [facility] of Occupat ional Health - Occupational Stress [...] ULTRASOUND [address], 2nd [place] [address] 05/07/2025 3:00 PM EDT Appointment [facility] FARRUKH Klein [address] [place] [address] 06/18/2025 10:30 AM EST Office Visit [facility] GASTROENTEROLOGY PRACTICE [address], 2nd [place] [address] 06/27/2025 10:00 AM EST Office Visit [facility] [...] NP [address] [place] [phone] documented as of this encounter Visit Diagnoses Not on filedocumented in this encounter Additional Health Concerns Assessment Noted Time PHQ-9 Depression Total Score: 0 07/24/19 23 3:00 PM EST documented as of this encounter Care Teams Systems Management Consultant Relationship Specialty Start Date End Date Trevor Rolon DO [address] [facility] [address] [place] [address] PCP - General Lucy Christopher DO [address] Bld[address] [place] [address] Consulting Physician Oncology 10/17/24 documented as of this encounter
--- OUTSIDE RECORDS SUMMARY | 2025-04-11 14:06 | XMS_ITS | Encounter Summary ---
Author Organization [facility] nter Address [address] [place] [address] Care Team Providers Care Receptionist Scheduler Name Role Phone Trevor Rolon DO Primary Care Provider Lucy Christopher DO Unavailable Reason for Visit * Reason Comments Med Refill Encounter Details Date Type Department Care Team (Late st Contact Info) Description 09/10/2023 Refill [facility] OPTOMETRY [facility] [address], 9th [place] [address] Marc Back, OD [address] [place] [address] Keratoconjunctivitis sicca of both eyes not specified [...] week 07/24/2022 How often do you attend [facility] or zoroastrian services? More than 4 times [...] Recorded Patient Health Questionnaire-2 Score 0 07/24/2022 [facility] - Occupational Stress Questionnaire [...] [facility] ULTRASOUND [address], 2nd [place] [address] 05/07/2025 3:00 PM EDT Appointment [facility] MAMMOGRAPHY SERVICES BLDG D [address], [place] [address] 06/18/2025 10:30 AM EST Office Visit [facility] GASTROENTEROLOGY PRACTICE [address], 2nd Floor [facility] [address] 06/27/2025 10:00 AM EST Office Visit [facility] SLEEP LAB PRACTICE [address], [place] [facility] [place] [address] Marcelina Hyde NP [address] [place] [address] 08/16/2025 10:00 AM EST Office Visit [facility] ENDOCRINOLOGY PRACTICE [address], 8th Floor [facility] [place] [address] Brigitte Mahoney NP [address] [facility] [place] [address] 09/18/2025 1:30 PM EDT Office Visit [facility] RHEUMATOLOGY PRACTICE [address], 8th Floor [facility] [place] [address] Suman Treviño MD [address] [facility]. [place] [address] 12/13/2025 11:00 AM EDT Office Visit [facility] OBGYN PRACTICE [address], 7th Floor [facility] [place] [address] Janice Woodward NP [address] [place] [address] documented as of this encounter Visit Diagnoses Diagnosis Keratoconjunctivitis sicca of both eyes not specified as Sjogren's documented in this encounter Additional Health Concerns Assessment Noted Time PHQ-9 Depression Total Score: 0 07/24/19 23 3:00 PM EST documented as of this encounter Care Teams Receptionist Scheduler Relationship Specialty Start Date End Date Trevor Rolon DO [address] [facility] [address] [place] [address] PCP - General Lucy Christopher DO [address] [facility] [place] [address] Consulting Physician Oncology 10/17/24 documented as of this encounter
--- OUTSIDE RECORDS SUMMARY | 2025-04-11 14:06 | XMS_ITS | Encounter Summary ---
Author Organization [facility] Address [address] [place] [address] Care Team Providers Care Tag Maker Name Role Phone Trevor Rolon DO Primary Care Provider [phone] Mc Grant DO Unavailable [phone] El Agarwal CONSULTANT INTERN Unavailable [phone] Reason for Referral * Consultation (Routine) - Authorized Specialty Diagnoses / Procedures Referred By Truong bella Referred To Contact Hematology / Blood and Marrow Transplant Diagnoses Thrombocytopenia (CMS/HCC) Laquita Corral PA [address] [place] [address] Phone: tel: fax: Igor Harris MD [address] [facility] [address] [place] [phone] Phone: tel: fax: Referral ID Status Reason Start Date Expiration Date Visits Requested Visits Authorized [id number] Authorized Specialty Services Required 03/28/2025 09/27/2026 1 1 Encounter Details Date Type Department Care Team (Latest Contact Info) Description 03/28/2025 Community [facility] Community Practice [address] [place] [address] Laquita Corral PA [address] [place] [address] Thrombocytopenia ([facility]) (Primary Dx) Social History Tobacco Use Types [...] Info) Description 05/14/2025 2:00 PM EST Appointment [facility] [address] [place] [address] 05/18/2025 9:15 AM EST Clinical Support [facility] [address] [place] [address] 05/18/2025 9:30 AM EST Clinical Support [facility] [place] [address] [place] [address] CH - CLINICAL NUTRITION [address] [place] [address] 05/18/2025 10:50 AM EST Office Visit [facility] [place] [address] [place] [address] Nj Johns MD [address] [place] [address] 05/18/2025 11:30 AM EST Social Work [facility] [address] [place] [address] Thuy Dasilva, [place] [address] 05/18/2025 1:00 PM EST Appointment [facility] Radiology [address] [place] [address] 05/18/2025 1:30 PM EST Appointment [facility] Radiology [address], 1st [place] [address] 05/18/2025 1:30 PM EST Appointment [facility] Radiology [address], 1st [place] [address] 05/18/2025 2:00 PM EST Pharmacist Visit [facility] [address] [place] [address] 05/22/2025 11:15 AM EST Consult [facility] [address], 1[address] [place] [address] Nigel Recinos MD [address] [facility] [address] [place] [address] 05/25/2025 11:30 AM EST Appointment [facility] [address] [place] [address] 05/25/2025 2:00 PM EST Appointment [facility] Pulmonary Function Testing [address] [place] [address] 05/25/2025 3:30 PM EST Appointment Cardiac Imaging [address] [place] [address] 05/31/2025 4:30 PM EST Appointment [facility] [address] [place] [address] 06/20/2025 10:30 AM EST Procedure Visit [facility] [address], 1st [place] [address] Claire Davidson MD [address] [place] [address] 06/21/2025 2:00 PM EST Office Visit [facility] Specialty Care Clinic [address] [facility], [address] [place] [address] Claire Davidson MD [address] [place] [address] Scheduled Referrals Name Type Priority Associated Diagnoses Order Schedule Ambulatory referral to Benign Hematology Outpatient Referral Routine Thrombocytopenia (CMS/HCC) 1 Occurrences starting 03/28/2025 until 09/29/2026 documented as of this encounter Visit Diagnoses Diagnosis Thrombocytopenia (CMS/HCC)- Primary Unspecified thrombocytopenia documented in this encounter Additional Health Concerns Assessment Noted Time PHQ-9 Depression Total Score: 024 7:48 AM EDT A fall risk assessment has been complete d for the patient 03/08/2025 8:18 AM EDT A Body Mass Index follow-up plan has been documented for the patient 03/08/2025 9:29 AM EDT documented as of this encounter Care Teams Tag Maker Relationship Specialty Start Date End Date Trevor Rolon DO [address] [address] PCP - General 11/22/20 Mc Grant DO [address] [place] [address] [place] [address] Referring Physician Gastroenterology 02/21/24 El Agarwal APRN [address] [place] [address] Referring Physician Gastroenterology 03/21/25 documented as of this encounter
--- OUTSIDE RECORDS SUMMARY | 2025-04-11 14:06 | XMS_ITS | Encounter Summary ---
Author Organization [facility] nter Address [address] [place] [address] Care Team Providers Care Net Application Architect Name Role Phone Trevor Rolon DO Primary Care Provider Lucy Christopher DO Unavailable Reason for Visit * Reason Comments Med Refill Encounter Details Date Type Department Care Team (Late st Contact Info) Description 01/17/2024 [address]ill [facility] NEUROLOGY PRACTICE [facility] [address], [address] [place] [address] Lupe Villalta, LIMNOLOGIST [address] [place] [phone] Social History Tobacco Use Types Packs/Day Years Used Date Smoking Tobacco: Former Cigarettes 1 7 015 - 2021 Passive Smoke Exposure: Past [...] ULTRASOUND [address], 2nd [place] [address] 05/07/2025 3:00 PM EDT Appointment [facility] MAMMOGRAPHY SERVICES BLDG D [address] [place] [address] 06/18/2025 10:30 AM EST Office Visit [facility] GASTROENTEROLOGY PRACTICE [address], 2nd [place] [address] 06/27/2025 10:00 AM EST Office Visit [facility] SLEEP [facility] [address] [place] [address] Marcelina Hyde NP [address] [place] [address] 08/16/2025 10:00 AM EST Office Visit [facility] ENDOCRINOLOGY PRACTICE [address], 8th [place] [address] Brigitte Mahoney NP [address] [place] [address] 09/18/2025 1:30 PM EDT Office Visit [facility] RHEUMATOLOGY PRACTICE [address], 8th [place] [address] Suman Treviño MD [address] [facility]. A [place] [facility] 12/13/2025 11:00 AM EDT Office Visit [facility] OBGYN PRACTICE [address], 7th [place] [address] Janice Woodward, CLAU [address] [place] [facility] documented as of this encounter Visit Diagnoses Not on filedocumented in this encounter Additional Health Concerns Assessment Noted Time PHQ-9 Depression Total Score: 0 07/24/19 23 3:00 PM EST documented as of this encounter Care Teams Net Application Architect Relationship Specialty Start Date End Date Trevor Rolon DO [address] [facility] [address] [place] [address] PCP - General Lucy Christopher DO [address] [place] [address] Consulting Physician Oncology 10/17/24 documented as of this encounter
[2025-04-11 14:36] LABS: Hematocrit 35.1 % (37.0-47.0); Hemoglobin 12.2 g/dL (12.2-16.2); Mean Corpuscular HGB Conc 34.8 g/dL (31.8-35.4); Mean Corpuscular Hemoglobin 34.4 pg (27.0-31.2); Mean Corpuscular Volume 98.9 fl (81-99); Nucleated Red Blood Cells % 0 %; Platelet Count 78 K/mm3 (142-424); Red Blood Count 3.55 M/mm3 (4.20-5.40); Red Cell Distribution Width-SD 54.3 fL; White Blood Count 9.3 K/mm3 (4.8-10.8)
[2025-04-11 15:09] LABS: Activated Partial Thrombo Time 32.8 seconds (22.8-30.6); INR 1.20 (0.9-1.1); Prothrombin Time 13.1 seconds (10.1-12.5)
[2025-04-11 15:43] LABS: Alanine Aminotransferase 70 U/L (12-78); Albumin Level 3.0 g/dl (3.5-5.0); Albumin/Globulin Ratio 1.0 (1.1-1.8); Alkaline Phosphatase 225 U/L (38-126); Anion Gap 11.3 mEq/L (5-15); Aspartate Amino Transferase 82 U/L (14-36); Bilirubin,Total 3.4 mg/dl (0.2-1.3); Blood Urea Nitrogen 24 mg/dl (7-17); Calcium 8.7 mg/dl (8.4-10.2); Carbon Dioxide 23 mmol/L (22.0-30.0); Chloride 98 mmol/L (98-107); Creatinine,Serum 0.90 mg/dl (0.52-1.04); Estimated Glomerular Filt Rate 65 ml/min (>60); GFR (African American) 79 ML/MIN (>60); Globulin 3.1 g/dL (1.3-3.2); Glucose 130 mg/dl (74-100); Potassium 4.3 mmoL/L (3.5-5.1); Sodium 128 mmol/L (136-145); Total Protein,Serum 6.1 g/dl (6.3-8.2)
== END 2025-04-11 23:59 | disposition home or self-care (01) ==
LOC: LAB 14:00
PROVIDERS: PCP Family Medicine; Visit Provider Student in an Organized Health Care Education/Training Program
DX: K72.90 Hepatic failure, unspecified without coma (principal)
CPT/HCPCS: 36415; 80053; 85027; 85610; 85730

== ENCOUNTER 2025-04-19 13:20 | Outpatient (CLI) | payer OTHER, SELFPAY ==
[2025-04-19 14:06] LABS: Hematocrit 36.9 % (37.0-47.0); Hemoglobin 12.8 g/dL (12.2-16.2); Mean Corpuscular HGB Conc 34.7 g/dL (31.8-35.4); Mean Corpuscular Hemoglobin 34.7 pg (27.0-31.2); Mean Corpuscular Volume 100.0 fl (81-99); Nucleated Red Blood Cells % 0 %; Platelet Count 98 K/mm3 (142-424); Red Blood Count 3.69 M/mm3 (4.20-5.40); Red Cell Distribution Width-SD 57.5 fL; White Blood Count 8.8 K/mm3 (4.8-10.8)
[2025-04-19 14:58] LABS: Alanine Aminotransferase 73 U/L (12-78); Albumin Level 3.1 g/dl (3.5-5.0); Albumin/Globulin Ratio 1.0 (1.1-1.8); Alkaline Phosphatase 267 U/L (38-126); Anion Gap 13.1 mEq/L (5-15); Aspartate Amino Transferase 86 U/L (14-36); Bilirubin,Total 2.4 mg/dl (0.2-1.3); Blood Urea Nitrogen 33 mg/dl (7-17); Calcium 9.0 mg/dl (8.4-10.2); Carbon Dioxide 29 mmol/L (22.0-30.0); Chloride 92 mmol/L (98-107); Creatinine,Serum 1.40 mg/dl (0.52-1.04); Estimated Glomerular Filt Rate 39 ml/min (>60); GFR (African American) 47 ML/MIN (>60); Globulin 3.2 g/dL (1.3-3.2); Glucose 100 mg/dl (74-100); Potassium 5.1 mmoL/L (3.5-5.1); Sodium 129 mmol/L (136-145); Total Protein,Serum 6.3 g/dl (6.3-8.2)
[2025-04-19 15:15] LABS: Activated Partial Thrombo Time 30.6 seconds (22.8-30.6); INR 1.22 (0.9-1.1); Prothrombin Time 13.3 seconds (10.1-12.5)
== END 2025-04-19 23:59 | disposition home or self-care (01) ==
LOC: LAB 13:22
DX: K72.90 Hepatic failure, unspecified without coma (principal)
CPT/HCPCS: 36415; 80053; 85027; 85610; 85730

== ENCOUNTER 2025-05-02 09:00 | Outpatient (CLI) | payer OTHER, SELFPAY ==
--- OUTSIDE RECORDS SUMMARY | 2025-03-08 08:00 | XMS_ITS | Encounter Summary ---
Author Organization [facility] Address [address] [place] [address] Care Team Providers Care Child Life Assistant Name Role Phone Trevor Rolon DO Primary Care Provider [phone] Mc Grant DO Unavailable [phone] Reason for Referral * Consultation (Routine) - Authorized Specialty Diagnoses / Procedures Referred By Truong bella Referred To Contact Neurosurgery Diagnoses Lumbosacral radiculopathy Claire Davidson MD [address] [address] Phone: tel: fax: Referral ID Status Reason Start Date Expiration Date Visits Requested Visits Authorized [id number] Authorized Specialty Services Required 03/08/2025 09/07/2026 1 1 * Imaging (Routine) - Authorized Specialty Diagnoses / Procedures Referred By Truong bella Referred To Contact Radiology Diagnoses Lumbosacral radiculopathy Procedures MR Cervical Spine wo IV Contrast Claire Davidson MD [address] [address] Phone: tel: fax: Referral ID Status Reason Start Date Expiration Date V isits Requested Visits Authorized [id number] Authorized 03/08/2025 09/07/2026 1 1 * Other Medical (Routine) - Pending Review Specialty Diagnoses / Procedures Referred By Truong bella Referred To Contact Neurology Diagnoses Lumbosacral radiculopathy Procedures EMG / Nerve Conduction Study Claire Davidson MD [address] [address] Phone: tel: fax: Referral ID Status Reason Start Date Expiration Date Visits Requested Visits Authorized [id number] Pending Review Specialty Services Required 03/08/2025 09/07/2026 1 1 Reason for Visit * Reason Comments Consult * Consultation (Routine) - Closed Specialty Diagnoses / Procedures Referred By Truong bella Referred To Contact Neurology Diagnoses Neuropathic pain, leg, bilateral Laquita Corral PA [address] [place] [address] Phone: tel: fax: Referral ID Status Reason Start Date Expiration Date V isits Requested Visits Authorized [id number] Closed Specialty Services Required 03/04/2025 09/03/2026 1 1 Encounter Details Date Type Department Care Team ([facility] st Contact Info) Description 03/08/2025 8:00 AM EDT Consult [facility] [place] [address] [facility], [address] [place] [address] Claire Davidson MD [address] [place] [address] Lumbosacral radiculopathy (Primary Dx) Social History [...] Date Recorded Patient Health Questionnaire-2 Score 0 03/08/2025 PHQ-9 Answer Date Recorded Patient Health Questionnaire-9 [...] Not at all 03/08/2025 8:18 AM EDT Sommer Rangel Feeling down, depressed, or hopeless Not at all 03/08/2025 8:18 AM EDT Sommer Rangel Patient Health Questionnaire -2 Score 0 03/08/2025 8:18 AM EDT Sommer Rnagel documented as of this encounter Miscellaneous Notes * Progress Notes - Claire Davidson MD - 03/08/2025 8:00 AM EDT I saw Trudy Peña as a new patient at the [facility] on 03/08/2025 in consultation for concern for neuropathy. Referring provider: Laquita Corral PA [address] [place] [address] HPI: Mr/Ms Trudy Peña is a 54 [...] proximal upper extremity weakness, some difficulty with consulting group analyst strength. Endorses radicular low back pain. Reports [...] Surgical History: Surgical History[2] Social History: Address: [address] [place] [address] Medications: Current Medications[3] Allergies: Allergies[4] Exam: There [...] presentation appears supportive of a left lumbosacral radiculopathy causing gait disturbance, patient does have a component of small-fiber peripheral neuropathy however given intact vibration and proprioception bilaterally this would not explain worsening gait issues and falls. Will obtain EMG, MRI cervical spine given radicular symptoms, and refer to Neurosurgery. Plan: Orders Placed This Encounter Procedures MR Cervical Spine wo IV Contrast Copper, Serum or Plasma Ambulatory referral to Neurosurgery EMG / Nerve Conduction Study RTC 2 months. Claire Davidson MD Melter Supervisor, Department of Neurology Neuromuscular Medicine Program [...] N/A Breast Surgery Reduction Procedure Bilateral from [employer] EXPLORATORY LAPAROTOMY GALLBLADDER SURGERY 2018 GANGLION CYST EXCISION, WRIST Left INCISION AND DRAINAGE, ABCESS 2010 from back LIVER BIOPSY OTHER SURGICAL HISTORY N/A Exploratory Laparotomy from [employer] OVARIAN CYST DRAINAGE N/A Aspiration Of Ovarian Cyst from [employer] TOTAL ABDOMINAL HYSTERECTOMY N/A 2011 Hysterectomy from [employer] [3] Current Outpatient Medications Medication Sig Dispense [...] TIMES DAILY ergocalciferol (Vitamin D-2) 1.25 MG (14446 UT) capsule Take 1 capsule (50,000 Units) [...] Care Team (Late st Contact Info) Description 05/14/2025 2:00 PM EST Appointment [facility] MRI [address] [place] [id number] 05/18/2025 9:15 AM EST Clinical Support [facility] [address] [address] 05/18/2025 9:30 AM EST Clinical Support [facility] [place] [address] [address] CH - CLINICAL NUTRITION [address] [place], [place] [id number] 05/18/2025 10:50 AM EST Office Visit [facility] [place] [address] [address] Nj Johns MD [address] [facility] [address] [place] [address] 05/18/2025 11:30 AM EST Social Work [facility] [address] [address] Thuy Dasilva, BITUMINOUS DISTRIBUTOR OPERATORReader, [place] [phone] 05/18/2025 1:00 PM EST Appointment [facility] Radiology [address] [place] [address] 05/18/2025 1:30 PM EST Appointment [facility]iology [address], 1[address] [place] [address] 05/18/2025 1:30 PM EST Appointment [facility]iology [address], 1st [place] [address] 05/18/2025 2:00 PM EST Pharmacist Visit [facility] [address] [place] [address] 05/22/2025 11:15 AM EST Consult [facility] [address], 1st [place] [address] Nigel Recinos MD [address] [place] [address] 05/25/2025 11:30 AM EST Appointment [facility] [address] [place] [address] 05/25/2025 2:00 PM EST Appointment [facility] Pulmonary Function Testing [address] [place] [address] 05/25/2025 3:30 PM EST Appointment Cardiac Imaging [address] [place] [address] 05/31/2025 4:30 PM EST Appointment [facility] [address] [place] [address] 06/01/2025 11:00 AM EST Office Visit [facility] [place] [address] [facility], [address] [place] [address] Juana Gale, CONSULTATIVE SALES ASSOCIATE [address] [place] [address] 06/20/2025 10:30 AM EST Procedure Visit [facility] [address], 1st [place] [address] Claire Davidson MD [address] [facility] [address] [place] [address] 06/21/2025 2:00 PM EST Office Visit [facility] [place] [address], [address] [place] [address] Claire Davidson MD [address] [place] [address] Scheduled Orders Name Type Priority Associated Diagnoses Orde r Schedule EMG / Nerve Conduction Study Neurology Routine Lumbosacral radiculopathy 1 Occurrences starting 03/08/2025 until 09/09/2026 MR Cervical Spine wo IV Contrast Imaging Routine Lumbosacral radiculopathy 1 Occurrences starting 03/08/2025 until 09/09/2026 Copper, Serum or Plasma Lab Routine Lumbosacral radiculopathy Expected: 03/08/2025 (Approximate), Expires: 09/09/2026 Scheduled Referrals Name Type Priority Associated Diagnoses Orde r Schedule Ambulatory referral to Neurosurgery Outpatient Referral Routine Lumbosacral radiculopathy 1 Occurrences starting 03/08/2025 until 09/09/2026 documented as of this encounter Visit Diagnoses Diagnosis Lumbosacral radiculopathy- [...] documented as of this encounter Care Teams Child Life Assistant Relationship Specialty Start Date End Date Trevor Rolon DO [address] [facility] [address] [place] [address] PCP - General 11/22/20 Mc Grant DO [address] [facility] [address] [place] [address] Referring Physician Gastroenterology 02/21/24 documented as of this encounter
--- OUTSIDE RECORDS SUMMARY | 2025-03-19 13:15 | XMS_ITS | Encounter Summary ---
Author Organization [facility] nter Address [address] [place] [address] Care Team Providers Care Service Order Taker Name Role Phone Trevor Rolon DO Primary Care Provider Lucy Christopher DO Unavailable Reason for Referral * US (Routine) - Closed Specialty Diagnoses / Procedures Referred By Truong bella Referred To Contact Radiology Diagnoses Cirrhosis of liver without ascites, unspecified hepatic cirrhosis type Procedures US liver doppler ME DUP-SCAN ARTL [place] ABDL/PEL/SCROT&/RPR ORGN LMT El Agarwal NP [address], [place] [address] Phone: tel: fax: [facility] [address] [place] [address] Phone: tel: fax: Referral ID Status Reason Start Date Expiration Date V isits Requested Visits Authorized [id number] Closed Specialty Services Required 03/26/2025 03/26/2026 1 1 Reason for Visit * Reason Comments Follow-up Encounter Details Date Type Department Care Team (Latest Contact Info) Description 03/19/2025 1:15 PM EDT Office Visit [facility] GASTRO[facility]OLOGY [facility]ACTICE [address], [address] [place] [id number] El Agarwal, CLAU [address], [place] [address] Cirrhosis of liver without ascites, unspecified hepatic cirrhosis type (Primary Dx); Hepatic encephalopathy; Gastroesophageal reflux disease, unspecified whether esophagitis present; Encephalopathy, hepatic; GAVE (gastric antral vascular ectasia) Social History [...] How often do you attend chur or spiritism services? More than 4 times per year [...] and heating? Not hard at all 07/24/2022 Exercise Vital Sign Answer [...] Sign Reading Time Taken Comments Blood Pressure 105/66 03/19/2025 1:45 PM EDT Pulse 84 03/19/2025 1:45 PM EDT Temperature - - Respiratory Rate - - Oxygen Saturation 98% 03/19/2025 1:45 PM EDT Inhaled Oxygen Concentration - - Weight 83.9 kg (185 lb) 03/19/2025 1:45 PM EDT Height 170.2 cm (5' 7 ) 03/19/2025 1:45 PM EDT Body Mass Index 28.98 03/19/2025 1:45 PM EDT documented in this encounter Progress Notes * El Agarwal NP - 03/19/2025 1:15 PM EDT Subjective Patient ID: Trudy Peña is a 54 y.o. female who presents for Follow-up. HPI 54-year-old female with past medical history of anxiety/depression, arthritis, chronic back pain, diabetes, hypertension, congestive heart failure, and sleep apnea presents to GI clinic for follow-upof cirrhosis. Today patient reports history of dysphagia with solids with no worsening of symptoms.She reports history of GERD with increase of heartburn and reflux symptoms despite taking Prevacid 30 mg daily. She reports trying Prilosec, Nexium and Zantac in the past with no relief of symptoms. She reports occasional nausea without vomiting in which she will take Zofran as needed with improvement of symptoms. She reports intermittent right upper quadrant abdominal pain. She reports producing2-3 bowel movements per day. She reports episodes of confusion with multiple falls since last office visit. She is currently on Xifaxan 550 mg twice daily she reports she has not been taking lactulose. She reports lower extremity edema and weight gain of 15 pounds since 03/09/2025 despite taking spironolactone 100 mg daily and Bumex 2 mg daily. She denies any melena, hematochezia, or hematemesis. She reports recently following with transplant center and reports that her MELD score was too lowfor transplant. MELD score currently 17 from lab work performed 02/26/25, patient wishes to be referred back to [facility]. Lab evaluation performed 02/26/2025 showed WBC 4.9, hemoglobin 13.0, hematocrit 38.2, platelets 74, sodium 133, potassium 3.6, BUN 15, creatinine 0.70, glucose 122, AST 70, ALT 49, alkaline phosphatase 176, albumin 3.1, total bilirubin 2.5, INR 1.28. Lab evaluation performed 04/28/2024 showed AFP 6.5. Doppler ultrasound of the liver performed 04/28/2024 showed the liver demonstrates a nodular, coarsened echotexture without intrahepatic biliary dilation. No masses are visualized. The main portal vein, hepatic veins and hepatic artery are patent with correct direction of flow. EGD performed 12/15/[address] Grant showed the larynx was normal. A non- obstructing Schatzki ring was found at the gastroesophageal junction. A 2 cm hiatal hernia was present. A medium amount of food (residue) was found in the gastric body. Mild gastric antral vascular ectasia without bleeding was present in the gastric antrum. Coagulation for bleeding prevention using argon plasma was successful.The examined duodenum was normal. Colonoscopy performed 07/31/[address] Grant showed digital rectal examinations were normal. 2 sessile polyps were found in the ascending colon. Resection and retrieval were complete. Multiple small mouth diverticula were found in the sigmoid colon. Nonbleeding internal hemorrhoids were foundduring retroflexion. Recommendation to repeat in 5 years for surveillance. Social History: Social History Tobacco Use Smoking status: Former Current packs/day: 0.00 Average packs/day: 1 pack/day for 7.0 years (7.0 ttl pk-yrs) Types: Cigarettes Start date: 2014 Quit date: 2021 Years since quittin.6 Passive exposure: Past Smokeless tobacco: Never Vaping Use Vaping status: Never Used Substance Use Topics Alcohol use: Never Drug use: Never Counseling given: Not Answered Review of Systems Constitutional: Positive for unexpected weight change. Negative for appetite change. HENT: Negative for trouble swallowing. Gastrointestinal: Positive for abdominal distention, abdominal pain and nausea. Negative for anal bleeding, blood in stool, constipation, diarrhea, rectal pain and vomiting. Objective Visit Vitals BP 105/66 (BP Location: Right arm, Patient Position: Sitting, BP Cuff Size: Adult) Pulse 84 Ht 5' 7 (1.702 m) Wt 185 lb (83.9 kg) SpO2 98% BMI 28.98 kg/m?? Smoking Status Former BSA 1.96 m?? Physical Exam Constitutional: General: She is not in acute distress. HENT: Head: Normocephalic and atraumatic. Mouth/Throat: Mouth: Mucous membranes are moist. Eyes: Conjunctiva/sclera: Conjunctivae normal. Cardiovascular: Rate and Rhythm: Normal rate. Pulmonary: Effort: Pulmonary effort is normal. No respiratory distress. Abdominal: Palpations: Abdomen is soft. Tenderness: There is no abdominal tenderness. There is no guarding or rebound. Musculoskeletal: Cervical back: Normal range of motion. Right lower leg: Edema present. Left lower leg: Edema present. Skin: General: Skin is warm and dry. Neurological: Mental Status: She is alert and oriented to person, place, and time. Assessment/Plan 1. Cirrhosis of liver without ascites, unspecified hepatic cirrhosis type - US liver doppler; Future - CBC; Future - Basic metabolic panel; Future - Hepatic function panel; Future - Protime-INR; Future - AFP tumor marker; Future - Ammonia; Future - spironolactone (Aldactone) 100 MG tablet; Take 2 tablets (200 mg) by mouth in the morning. 2. Hepatic encephalopathy - lactulose (Chronulac) 10 GM/15ML solution; Take 15 mL (10 g) by mouth in the morning and at bedtime. 3. Gastroesophageal reflux disease, unspecified whether esophagitis present - pantoprazole (ProtoNix) 40 MG EC tablet; Take 1 tablet (40 mg) by mouth in the morning. Do not crush, chew, or split. 4. Encephalopathy, hepatic - rifAXIMin (Xifaxan) 550 MG tablet; Take 1 tablet (550 mg) by mouth in the morning and at bedtime. 5. GAVE (gastric antral vascular ectasia) Discussed dietary and lifestyle modifications for cirrhosis. Recommend she follow a strict 2 g sodium diet with 2 L fluid restriction. Lab evaluation ordered to be performed today. Doppler ultrasound of the liver ordered. Will increase spironolactone to 200 mg daily. Continue Bumex 2 mg daily. Will repeat labs in 1 weekto monitor kidney function following increase of spironolactone. Continue Xifaxan 550 mg twice daily. Prescription sent for lactulose 10 g twice daily. MELD score 17 from labs performed 02/26/2025. Will refer to [facility]. Prevacid discontinued. Prescription given for Protonix 40 mg daily. Instructed to take 30 minutes prior to a meal for best results. Informed patient to contact our office for any new or worsening GI concerns. Follow-up with GI clinic in 3 months. The medication list for this visit has been reviewed and reconciled. Reviewed by El Agarwal NP (Nurse Practitioner) on 03/20/25 at 0800 and confirmed by El Agarwal NP documented in this encounter Plan of Treatment Upcoming Encounters Date Type Department Care Team (Late st Contact Info) Description 05/07/2025 3:00 PM EDT Appointment [facility] MAMMOGRAPHY SERVICES [facility] D [address] [place] [address], [facility] D [place] [phone] 06/18/2025 10:30 AM EST Office Visit [facility] GASTROENTEROLOGY PRACTICE [address] [place] [address], 2nd Floor Clinic [place] [phone] 06/27/2025 10:00 AM EST Office Visit [facility] SLEEP LAB PRACTICE [address] [place], [place] [address] [phone] Demario Silva DO [address] [place] [address] 08/16/2025 10:00 AM EST Office Visit [facility] ENDOCRINOLOGY PRACTICE [address] [place] [address], 8th [place] [address] Brigitte Mahoney NP [address] [place] [address] 09/18/2025 1:30 PM EDT Office Visit [facility] RHEUMATOLOGY PRACTICE [address], 8th Floor [place] [phone] Suman Treviño MD [address] [place] [address]. [place] [address] 12/13/2025 1:15 PM EDT Office Visit [facility] [address], 7[address] [place] [phone] Janice Woodward, CLAU [address] [place] [address] Scheduled Orders Name Type Priority Associated Diagnoses Orde r Schedule US liver doppler Imaging Routine Cirrhosis of liver without ascites, unspecified hepatic cirrhosis type Expected: 03/26/2025, Expires: 03/19/2026 documented as of this encounter Results * (ABNORMAL) Ammonia (03/19/2025 2:49 PM EDT) Pathologist [facility] Ammonia 65(H) 11 - 32 umol/L 03/19/2025 3:37 PM EDT [facility] Blood Venous blood specimen / Unknown Venipuncture / Unknown 03/19/2025 2:49 PM EDT 03/19/2025 3:06 PM EDT El Agarwal NP LAB BLOOD ORDERABLES Final Re sult [facility] [address] [place] [address], * AFP tumor marker (03/19/2025 2:49 PM EDT) Pathologist [facility] AFP Tumor Marker 4.7 0.0 - 9.2 ng/mL 03/20/2025 4:06 AM EDT [facility] ([place] Comment: [facility] Electrochemiluminescence Immunoassay (ECLIA) Values obtained with different assay methods or kits cannot be used interchangeably. Results cannot be interpreted as absolute evidence of the presence or absence of malignant disease. This test is not interpretable in females. Blood Venous blood specimen / Unknown Venipuncture / Unknown 03/19/2025 2:49 PM EDT 03/19/2025 3:06 PM EDT Narrative [facility] - 03/20/2025 4:06 AM EDT Performed at: [address] [place] [address] [place] [id number] Records Management Clerk: Raphael Edwards PhD, Phone: [phone] us El Agarwal SENIOR GEOLOGIST LAB BLOOD ORDERABLES Final Re sult Performing Organization Address City/[facility]/ZIP Co de Phone Number BYRON PETERSON) [address] [place] [address], [place] [phone] * (ABNORMAL) Protime-INR (03/19/2025 2:49 PM EDT) Protime 14.3(H) 10.2 - 12.9 seconds 03/19/2025 3:27 PM EDT [facility] INR 1.27(H) 0.90 - 1.10 03/19/2025 3:27 PM EDT [facility] Comment: The INR should only be used in stable anticoagulated patients. Recommended therapeutic ranges: Condition INR Prevention or treatment of DVT 2.0-3.0 Acute RI Prevention of Stroke 2.0-3.0 Prevention of recurrent RI 2.5-3.5 Atrial fibrillation Prevention of systemic embolism 2.0-3.0 Cardiac valve replacement (mechanical valves) 2.5-3.5 Blood Venous blood specimen / Unknown Venipuncture / Unknown 03/19/2025 2:49 PM EDT 03/19/2025 3:07 PM EDT El Agarwal SENIOR GEOLOGIST LAB BLOOD ORDERABLES Final Re sult Performing Organization Address City/[facility]/ZIP Co de Phone Number [facility] [address] [place] [address], [place] [phone] * (ABNORMAL) Hepatic function panel (03/19/2025 2:49 PM EDT) Total Bilirubin 2.0(H) 0.3 - 1.0 mg/dL 03/19/2025 3:35 PM EDT [facility] Bilirubin, Direct 0.6(H) 0.0 - 0.2 mg/dL 03/19/2025 3:35 PM EDT [facility] Alkaline Phosphatase 205(H) 29 - 108 U/L 03/19/2025 3:35 PM EDT [facility] AST 61(H) 10 - 28 U/L 03/19/2025 3:35 PM EDT [facility] ALT (SGPT) 40 <=40 U/L 03/19/2025 3:35 PM EDT [facility] Albumin 2.9(L) 3.5 - 5.1 g/dL 03/19/2025 3:35 PM EDT [facility] Total Protein 6.0 5.9 - 7.9 g/dL 03/19/2025 3:35 PM EDT [facility] Blood Venous blood specimen / Unknown Venipuncture / Unknown 03/19/2025 2:49 PM EDT 03/19/2025 3:06 PM EDT [facility] - 03/19/2025 3:35 PM EDT Results for ALT may be adversely affected when samples are collected on patients taking Sulfasalazine and/or Sulfapyridine. us El Agarwal SENIOR GEOLOGIST LAB BLOOD ORDERABLES Final Re sult [facility] [address] [place] [address], * (ABNORMAL) Basic metabolic panel (03/19/2025 2:49 PM EDT) Glucose 116(H) 58 - 104 mg/dL 03/19/2025 3:35 PM EDT [facility] Sodium 133(L) 134 - 143 mmol/L 03/19/2025 3:35 PM EDT [facility] Potassium 4.2 3.2 - 4.6 mmol/L 03/19/2025 3:35 PM [facility] Chloride 101 99 - 108 mmol/L 03/19/2025 3:35 PM EDT [facility] CO2 30(H) 19 - 29 mmol/L 03/19/2025 3:35 PM EDT [facility] Anion Gap 2(L) 5 - 15 mmol/L 03/19/2025 3:35 PM EDT [facility] BUN 19 7 - 20 mg/dL 03/19/2025 3:35 PM EDT [facility] Creatinine 0.91 <=1.20 mg/dL 03/19[facility]2025 [facility] BUN/Creatinine Ratio 20.88(H) 10.00 - 20.00 ratio 03/19/2025 3:35 PM EDT [facility] Calcium 8.6 7.9 - 11.1 mg/dL 03/19/2025 3:35 PM EDT [facility] eGFR (CKD-EPI) 71.3 >60.0 - 200.0 mL/min/1.7 3m*2 03/19/2025 3:35 [facility] Blood Venous blood specimen / Unknown Venipuncture / Unknown 03/19/2025 2:49 PM EDT 03/19/2025 3:06 PM EDT us El Agarwal SENIOR GEOLOGIST LAB BLOOD ORDERABLES Final Re sult [facility] [address] [place] [address], * (ABNORMAL) CBC (03/19/2025 2:49 PM EDT) Auto WBC 6.2 3.8 - 11.0 10*3/uL 03/19/2025 3:12 [facility] RBC 3.73 3.73 - 5.13 10*6/uL 03/19/2025 3:12 [facility] Hemoglobin 12.7 11.2 - 15.3 g/dL 03/19/2025 3:12 [facility] Hematocrit 36.8 32.6 - 44.6 % 03/19/2025 3:12 PM [facility] MCV 98.7(H) 78.8 - 96.0 fL 03/19/2025 3:12 [facility] MCH 34.0(H) 26.2 - 33.0 pg 03/19/2025 3:12 PM EDT [facility] MCHC 34.4 32.7 - 35.1 g/dL 03/19/2025 3:12 PM EDT [facility] RDW 14.5 12.1 - 16.1 % 03/19/2025 3:12 PM EDT [facility] Platelets 77(L) 138 - 402 10*3/uL 03/19/2025 3:12 PM EDT [facility] MPV 8.1 7.0 - 10.6 fL 03/19/2025 3:12 PM EDT [facility] Blood Venous blood specimen / Unknown Venipuncture / Unknown 03/19/2025 2:49 PM EDT 03/19/2025 3:07 PM EDT us El Agarwal SENIOR GEOLOGIST LAB BLOOD ORDERABLES Final Re sult [facility] [address] [place] [address], documented in this encounter Visit Diagnoses Diagnosis Cirrhosis of liver without ascites, unspecified hepatic cirrhosis type- Primary Hepatic encephalopathy Gastroesophageal reflux disease, unspecified whether esophagitis present Encephalopathy, hepatic Hepatic encephalopathy GAVE (gastric antral vascular ectasia) documented in this encounter Additional Health Concerns Assessment Noted Time PHQ-9 Depression Total Score: 0 07/24/19 23 3:00 PM EST documented as of this encounter Care Teams Service Order Taker Relationship Specialty Start Date End Date Trevor Rolon DO [address] [facility] [address] [place] [address] PCP - General Lucy Christopher DO [address] [place] [address] Consulting Physician Oncology 10/17/24 documented as of this encounter
--- OUTSIDE RECORDS SUMMARY | 2025-03-27 10:30 | XMS_ITS | Encounter Summary ---
Author Organization [facility] nter Address [address] [place] [address] Care Team Providers Care Boilermaker Ship Name Role Phone Trevor Rolon DO Primary [...] [address], 7th Floor Clinic [place] [phone] Janice Woodward, CLAU [address] [place] [address] Acute vaginitis (Primary Dx) Social History Tobacco [...] week 07/24/2022 How often do you attend [facility] or orth[facility] services? 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 Acute vaginitis - possible HSV Sent Valtrex. Follow up as scheduled. The medication list for this visit has been reviewed and reconciled. Reviewed by Marcelina Hyde NP (Nurse Practitioner) on 03/28/25 at 0850 documented in this encounter Plan of Treatment Upcoming Encounters Date Type Department Care Team (Late st Contact Info) Description 05/07/2025 3:00 PM EDT Appointment [facility] MAMMOGRAPHY SERVICES [facility] D [address] [facility] [place] [address] 06/18/2025 10:30 AM EST Office Visit [facility] GASTROENTEROLOGY PRACTICE [address] [facility], 2nd [place] [address] 06/27/2025 10:00 AM EST Office Visit [facility] SLEEP LAB PRACTICE [address] [place] [address] Demario Silva DO [address] [place] [address] 08/16/2025 10:00 AM EST Office Visit [facility] ENDOCRINOLOGY PRACTICE [address], 8th [place] [address] Brigitte Mahoney NP [address] [place] [address] 09/18/2025 1:30 PM EDT Office Visit [facility] RHEUMATOLOGY PRACTICE [address], 8th Floor [place] [address] Suman Treviño MD [address] [place] [phone] 12/13/2025 1:15 PM EDT Office Visit [facility] OBGYN PRACTICE [address], 7[address] Floor Clinic [place] [address] Janice Woodward NP [address] [place] [address] documented as of this encounter Procedures Procedure Name Priority Date/Time Associated Diagnosis Comments HEPATITIS PANEL, ACUTE Routine 03/27/2025 11:52 AM EDT Acute vaginitis documented in this encounter Results * (ABNORMAL) Herpes simplex virus culture (03/27/2025 12:42 PM EDT) Pathologist [facility] HSV Culture Positive(A ) 03/31/2025 2:07 PM EDT [facility] ([place]) Swab Cervical swab / Unknown Non-blood Collection / Unknown 03/27/2025 12:42 PM EDT 03/27/2025 8:03 PM EDT Narrative [facility] ([place]) - 03/31/2025 2:07 PM EDT Performed at: - [facility] [id number] Patient Safety Sitter: Raphael Edwards PhD, Phone: [phone] us Janice Woodward NP LAB MICROBIOLOGY - GENER AL ORDERABLES Final Result [facility] ([place]) [address] [place] [address], * (ABNORMAL) Herpes Simplex Virus (HSV) Types [...] (GO) Comment: Please note reference interval change Current [...] 03/28/2025 8:07 AM EDT Performed at: - [address] [id number] Patient Safety Sitter: Raphael Edwards PhD, Phone: [phone] Janice Woodward NP LAB BLOOD ORDERABLES [facility] al Result [facility]) [address] [place] [address], * Hepatitis panel, acute (03/27/2025 11:52 AM EDT) Pathologist [facility] Hepatitis B Surface Ag Nonreactive Nonreactive 03/27/2025 1:26 PM EDT [facility] Hep A IgM Nonreactive Nonreactive 03/27/2025 1:26 PM EDT [facility] Hep B Core IgM Nonreactive Nonreactive 03/27/2025 1:26 PM EDT [facility] Hepatitis C Ab Nonreactive Nonreactive 03/27/2025 1:26 PM EDT [facility] Blood Venous blood specimen / Unknown Venipuncture / Unknown 03/27/2025 11:52 AM EDT 03/27/2025 12:17 PM EDT Janice Woodward NP LAB BLOOD ORDERABLES Fin al Result Performing Organization Address City/[facility]/ZIP Co de Phone Number [facility] [address] [place] [address], [place] [phone] * RPR W/Reflex (Reference Lab) (03/27/2025 11:52 AM EDT) RPR Non Reactive Non Reactive 03/28/2025 8:07 AM EDT [facility] ([employer]) Blood Venous blood specimen / Unknown Venipuncture / Unknown 03/27/2025 11:52 AM EDT 03/27/2025 12:17 PM EDT Narrative [facility] (BEAKER) - 03/28/2025 8:07 AM EDT Performed at: 01 - [facility] [address] [id number] Patient Safety Sitter: Raphael Edwards PhD, Phone: [phone] Janice Woodward NP LAB BLOOD ORDERABLES Fin al Result [facility] (BEAKER) [address] [place] [address], [place] [phone] * HIV Ag/Ab with Reflex (03/27/2025 11:52 AM EDT) HIV Ag/Ab (4th Gen) Nonreactive Nonreactive 03/27/2025 1:02 PM EDT [facility] Blood Venous blood specimen / Unknown Venipuncture / Unknown 03/27/2025 11:52 AM EDT 03/27/2025 12:17 PM EDT Narrative [facility] - 03/27/2025 1:02 PM EDT Screening test only. us Janice Woodward CAN FILLING AND CLOSING MACHINE TENDER LAB BLOOD ORDERABLES Fin al Result [facility] [address] [place] [address], documented in this encounter Visit Diagnoses Diagnosis Acute vaginitis- Primary Unspecified vaginitis and vulvovaginitis documented in this encounter Additional Health Concerns Assessment Noted Time PHQ-9 Depression Total Score: 0 07/24/19 23 3:00 PM EST documented as of this encounter Care Teams Boilermaker Ship Relationship Specialty Start Date End Date Trevor Rolon DO [address] [facility] [address] [place] [address] PCP - General Lucy Christopher DO [address] [facility] [place] [address] Consulting Physician Oncology 10/17/24 documented as of this encounter
--- OUTSIDE RECORDS SUMMARY | 2025-03-27 11:00 | XMS_ITS | Encounter Summary ---
Author Organization [facility] nter Address [address] [place] [address] Care Team Providers Care Cross Tie Cutter Name Role Phone Trevor Rolon DO Primary Care Provider Lucy Chritsopher DO Unavailable Reason for Visit * Reason Comments Ankle Pain Encounter Details Date Type Department Care Team (Latest Contact Info) Description 03/27/2025 11:00 AM EDT Office Visit [facility] ORTHOPEDIC PODIATRY PRACTICE [address] 6th [place] [address] Alexandr Zarate DPM [address] [facility] [address] [facility] [place] [address] Diabetic polyneuropathy associated with type [...] week 07/24/2022 How often do you attend [facility] or [facility] services? More than 4 [...] min Stress: No Stress Concern Present (07/24/2022) [place] [employer] of Occupational Health - Occupational Stress Questionnaire Feeling of Stress : Not at all Social Connections: Unknown (04/19/2023) Received from [facility] Family and Community Support Help with Day-to-Day Activities: Not on file Lonely or Isolated: Not on file Intimate Partner Violence: Unknown (04/19/2023) Received from [facility] Abuse Screen Unsafe at Home or Work/School: Not on file Feels Threatened by Someone?: Not on file Does Anyone Keep You from Contacting Others or Doint Things Outside the Home?: Not on file Physical Sign of Abuse Present: Not on file Housing Stability: Unknown (04/19/2023) Received from [facility] Housing Stability Current Living Arrangements: Not [...] videos and all your education online visit, [email or web address] or scan this QR code with your smartphone. Access to this content will in one year. Diabetes Mellitus and Foot Care Diabetes, also called diabetes mellitus, may cause problems with your feet and legs because of poorblood flow (circulation). Poor circulation may make your skin: Become thinner and fish drier. Break more easily. Heal more slowly. [...] right away. Where to find more information [place] Diabetes Association: diabetes.org Association of Diabetes Care [...] Reviewed: 2022-12-30 Elsevier Patient Education ? 2024 [employer] documented in this encounter Plan of Treatment Upcoming Encounters Date Type Department Care Team (Late st Contact Info) Description 05/07/2025 3:00 PM EDT Appointment [facility] MAMMOGRAPHY SERVICES [address], [place] [address] 06/18/2025 10:30 AM EST Office Visit [facility] GASTROENTEROLOGY PRACTICE [address], 2nd Floor Clinic [place] [phone] 06/27/2025 10:00 AM EST Office Visit [facility] SLEEP LAB PRACTICE [address], [place] [phone] Demario Silva DO [address] [place] [id number] 08/16/2025 10:00 AM EST Office Visit [facility] ENDOCRINOLOGY PRACTICE [address], 8th Floor [place] [phone] Brigitte Mahoney NP [address] [id number] 09/18/2025 1:30 PM EDT Office Visit [facility] RHEUMATOLOGY PRACTICE [address], 8th [place] [address] Suman Treviño MD [address] [facility]. [place] [address] 12/13/2025 1:15 PM EDT Office Visit [facility] OBGYN PRACTICE [address], 7th [place] [address] Janice Woodward NP [address] [place] [address] documented as of this encounter Visit Diagnoses Diagnosis Diabetic polyneuropathy associated with type 2 diabetes mellitus Achilles tendinitis of left lower extremity Bilateral calcaneal spurs Pain in both feet documented in this encounter Additional Health Concerns Assessment Noted Time PHQ-9 Depression Total Score: 0 07/24/19 23 3:00 PM EST documented as of this encounter Care Teams Cross Tie Cutter Relationship Specialty Start Date End Date Trevor Rolon DO [address] [facility] [address] [place] [phone] PCP - General Lucy Christopher DO [address] [place] [place] [address] Consulting Physician Oncology 10/17/24 documented as of this encounter
--- OUTSIDE RECORDS SUMMARY | 2025-03-28 08:00 | XMS_ITS | Encounter Summary ---
Author Organization [facility] nter Address [address] [place] [address] Care Team Providers Care Copy Preparer Name Role Phone Trevor Rolon DO Primary [...] Description 03/28/2025 8:00 AM EDT Office Visit [facility] [address] [place] [address] NovemberMarcelina NP [address] [place] [address] LEROY (obstructive sleep apnea) (Primary [...] How often do you attend [facility] or [facility]ain services? More than 4 [...] to sleep or slept in a senior care (including now)? No 07/24/2022 Comments No Sex [...] videos and all your education online visit, [email or web address] or scan this QR code with your [...] have sleep problems, talk with a sleep speech correction consultant. If you think you have a sleep disorder, talk with your health care provider about getting evaluated by a specialist. Where to find more information Sleep Foundation: sleepfoundation.org [place] [employer]: aasm.org Centers for [...] Reviewed: 2022-10-21 Elsevier Patient Education ? 2024 [employer] documented in this encounter Plan of Treatment Upcoming Encounters Date Type Department Care Team (Late st Contact Info) Description 05/07/2025 3:00 PM EDT Appointment [facility] MAMMOGRAPHY SERVICES [facility] D [address] [place] [address], [facility] [place] [address] 06/18/2025 10:30 AM EST Office Visit [facility] [address] [place] [address] 06/27/2025 10:00 AM EST Office Visit [facility] [address] [place] [address] Demario Silva DO [address] [place] [address] 08/16/2025 10:00 AM EST Office Visit [facility] [address] [place] [address] Brigitte Mahoney NP [address] [place] [address] 09/18/2025 1:30 PM EDT Office Visit [facility] [address] [place] [facility] [place] [address] Suman Treviño MD [address] [facility]. [place] [address] 12/13/2025 1:15 PM EDT Office Visit [facility] [address], [address] [facility] [address] Janice Woodward, CLAU [address] [place] [address] documented as of this encounter Visit Diagnoses [...] documented as of this encounter Care Teams Copy Preparer Relationship Specialty Start Date End Date Trevor Rolon DO [address] [facility] [address] [place] [address] PCP - General Lucy Christopher DO [address] [facility] [place] [address] Consulting Physician Oncology 10/17/24 documented as of this encounter
--- OUTSIDE RECORDS SUMMARY | 2025-04-03 08:00 | XMS_ITS | Encounter Summary ---
Author Organization [facility] Address [address] [place] [address] Care Team Providers Care Floor Coverer Apprentice Name Role Phone Trevor Rolon DO Primary Care Provider [phone] Mc Grant DO Unavailable [phone] El Agarwal HAND HARDENER Unavailable [phone] Reason for Referral * Consultation (Routine) - Authorized Specialty Diagnoses / Procedures Referred By Truong bella Referred To Contact Family Medicine Diagnoses End-stage liver disease (CMS/HCC) Nj Johns MD [address] [facility] [address] [place] [address] Phone: tel: fax: Referral ID Status Reason Start Date Expiration Date Visits Requested Visits Authorized [id number] Authorized Specialty Services Required 04/03/2025 10/03/2026 1 1 Reason for Visit * Reason Comments Pre-Liver Txp Follow-up * Consultation (Routine) - Closed Specialty Diagnoses / Procedures Referred By Truong bella Referred To Contact Transplant Diagnoses End-stage liver disease (CMS/HCC) Asael Esteves MD [address] [place] [address] Phone: tel: fax: [facility] [address] [place] [address] Phone: tel: fax: Referral ID Status Reason Start Date Expiration Date V isits Requested Visits Authorized [id number] Closed Specialty Services Required 03/21/2025 09/20/2026 1 1 Encounter Details Date Type Department Care Team (Latest Contact Info) Description 04/03/2025 8:00 AM EDT Office Visit [facility] [address] [place] [address] Nj Johns MD [address] [place] [address] End-stage liver disease (CMS/HCC) (Primary [...] patient is a 54-year-old female with decompensated [facility] cirrhosis, presenting for a liver [...] deferred. She has continued follow-up care at [facility], with her most recent appointment on [...] , Rfl: ergocalciferol (Vitamin D-2) 1.25 MG (82869 UT) capsule, Take 1 capsule by mouth [...] Info) Description 05/14/2025 2:00 PM EST Appointment [facility] [address] [place] [address] 05/18/2025 9:15 AM EST Clinical Support [facility] Transplant [address] [address] 05/18/2025 9:30 AM EST Clinical Support [facility] [address] [address] CH - CLINICAL NUTRITION [address] [place] [address] 05/18/2025 10:50 AM EST Office Visit [facility] [address] [address] Nj Johns MD [address] [place] [address] 05/18/2025 11:30 AM EST Social Work [facility] [address] [place] [address] Thuy Dasilva, [place], [place] [id number] 05/18/2025 1:00 PM EST Appointment [facility] Radiology [address] [place] [address] 05/18/2025 1:30 PM EST Appointment [facility] [address], 1st [place] [address] 05/18/2025 1:30 PM EST Appointment [facility] [address], 1st [place] [address] 05/18/2025 2:00 PM EST Pharmacist Visit [facility] [address] [place] [address] 05/22/2025 11:15 AM EST Consult [facility] [address], 1st [place] [address] Nigel Recinos MD [address] [place] [address] 05/25/2025 11:30 AM EST Appointment [facility] [address] [place] [address] 05/25/2025 2:00 PM EST Appointment [facility] Pulmonary Function Testing [address] [place] [address] 05/25/2025 3:30 PM EST Appointment Cardiac Imaging [address] [place] [address] 05/31/2025 4:30 PM EST Appointment [facility] Amandeep Valdes Building [address] [place] [address] 06/01/2025 11:00 AM EST Office Visit [facility] [place] [address] [facility], [address] [place] [address] ShahlaJuana, HAND HARDENER [address] [place] [address] 06/20/2025 10:30 AM EST Procedure Visit [facility] [address], 1st [place] [address] Claire Davidson MD [address] [facility] [address] [place] [address] 06/21/2025 2:00 PM EST Office Visit [facility] [address] [facility], [address] [place] [address] Claire Davidson MD [address] [facility] [address] [place] [address] Scheduled Referrals Name Type Priority Associated Diagnoses Order Schedule Ambulatory referral to Family Practice Outpatient Referral Routine End-stage liver disease (CMS/HCC) 1 Occurrences starting 04/03/2025 until 10/05/2026 documented as of this encounter Results * Pxioy-0-Irthwlmtylz Enzyme Conc and Phenotype (SO) (04/03/2025 10:11 AM EDT) ALPHA 1 ANTITRYPSIN 131 90 - 200 mg/dL 04/05/2025 10:42 PM EDT [facility] ([facility]) A1A Phenotype M1Z 04/05/2025 10:42 PM EDT [facility] ([facility]) Blood Venous blood specimen / Unknown Venipuncture / Unknown 04/03/2025 10:11 AM EDT 04/03/2025 10:41 AM EDT Narrative [facility] NICHOLAS) - 04/05/2025 10:42 PM EDT To convert [...] within the previous 21 days. Performed By: [facility] [address] [place] [address] Spinneret Person: Kiel Mayfield MD, PhD CLIA Number: [id number] Nj Johns MD LAB BLOOD ORDERABLES Final Res ult [facility] [address] [place] [address] * (ABNORMAL) Anti-smooth muscle antibody, IgG (04/03/2025 10:11 AM EDT) Smooth Muscle Ab, IgG Titer 1:20(H) <1:20 04/05/2025 8:18 PM EDT [facility] (GO) Blood Venous blood specimen / Unknown Venipuncture / Unknown 04/03/2025 10:11 AM EDT 04/03/2025 10:41 AM EDT [facility] NICHOLAS) - 04/05/2025 8:18 PM EDT INTERPRETIVE INFORMATION: Smooth Muscle Ab, IgG Titer Less than 1:20 ........ Negative - No antibody detected. 1:20 - 1:80 .......... Weak Positive - Suggest repeat in two to three weeks with fresh specimen. 1:160 or greater ...... Positive - Suggestive of autoimmune hepatitis or chronic active hepatitis. Performed By: [facility] [address] [place], [place] [id number] Spinneret Person: Kiel Mayfield MD, PhD CLIA Number: [id number] Nj Johns MD LAB BLOOD ORDERABLES Final Res ult [facility] ([facility]) [address] [place] [address] * (ABNORMAL) IG Profile (04/03/2025 10:11 AM EDT) IGA 838(H) 75 - 400 mg/dL 04/03/2025 11:38 AM EDT [facility] IGG 1,747(H) 720 - 1,589 mg/dL 04/03/2025 11:38 AM EDT [facility] IGM 197 35 - 225 mg/dL 04/03/2025 11:38 AM EDT [facility] Blood Venous blood specimen / Unknown Venipuncture / Unknown 04/03/2025 10:11 AM EDT 04/03/2025 10:41 AM EDT Nj Johns MD LAB BLOOD ORDERABLES Final Res ult Performing Organization Address City/[facility]/ZIP Co de Phone Number [facility] [address] [place] [address] * (ABNORMAL) Mitochondrial M2 Antibody, IgG (CRISTLA) (04/03/2025 10:11 AM EDT) MITOCHONDRIA M2 AB IGG 29.3(H) 0.0 - 24.9 Units 04/05/2025 11:23 AM EDT [facility] ([facility]) Serum Venous blood specimen / Unknown 04/03/2025 10:11 AM EDT 04/03/2025 10:41 AM EDT Narrative [facility] ([facility]) - 04/05/2025 11:23 AM EDT REFERENCE INTERVAL: [...] does not rule out PBC. Performed By: [facility] [address] [place] [address] Spinneret Person: Kiel Mayfield MD, PhD CLIA Number: [id number] Nj Johns MD LAB BLOOD ORDERABLES Final Res ult [facility] (GO) [address] [place] [address] documented in this encounter Visit Diagnoses Diagnosis [...] documented as of this encounter Care Teams Floor Coverer Apprentice Relationship Specialty Start Date End Date Trevor Rolon DO [address] [facility] [address] [place] [address] PCP - General 11/22/20 Mc Grant DO [address] [facility] [address] [place] [address] Referring Physician Gastroenterology 02/21/24 El Agarwal APRN [address] [place] [address] Referring Physician Gastroenterology 03/21/25 documented as of this encounter
--- OUTSIDE RECORDS SUMMARY | 2025-04-03 08:40 | XMS_ITS | Encounter Summary ---
Author Organization [facility] Address [address] [place] [address] Care Team Providers Care Hydraulic Spinner Name Role Phone Trevor Rolon DO Primary Care Provider [phone] Mc Grant DO Unavailable [phone] El Agarwal CLAY DRY PRESS OPERATOR Unavailable [phone] Encounter Details Date Type Department Care Team (Late st Contact Info) Description 04/03/2025 8:40 AM EDT Office Visit [facility] [address] [address] Swapnil Madrigal MD [address] [address] Surgeon, Transplant Liver End-stage liver [...] with liver disease in the setting of [facility]. The patient was first diagnosed of [...] Tobacco Use: Medium Risk (03/28/2025) Received from [facility] Patient History Passive Exposure: Past Smokeless Tobacco Use: Never Smoking Tobacco Use: Former Alcohol: Alcohol Use: Not At Risk (07/23/2022) Received from [facility] AUDIT-C Q1: How often do you have [...] N/A Breast Surgery Reduction Procedure Bilateral from [facility] EXPLORATORY LAPAROTOMY GALLBLADDER SURGERY 2018 GANGLION CYST EXCISION, WRIST Left INCISION AND DRAINAGE, ABCESS 2010 from back LIVER BIOPSY OTHER SURGICAL HISTORY N/A Exploratory Laparotomy from [facility] OVARIAN CYST DRAINAGE N/A Aspiration Of Ovarian Cyst from [facility] TOTAL ABDOMINAL HYSTERECTOMY N/A 2011 Hysterectomy from [facility] [3] Family History Problem Relation Name Age [...] Info) Description 05/14/2025 2:00 PM EST Appointment [facility] [address] [place] [address] 05/18/2025 9:15 AM EST Clinical Support [facility] [address] [place] [address] 05/18/2025 9:30 AM EST Clinical Support [facility] [place] [address] [place] [address] CH - CLINICAL NUTRITION [address] [place], [place] [id number] 05/18/2025 10:50 AM EST Office Visit [facility] [address] [place] [address] Nj Johns MD [address] [facility] [address] [place] [address] 05/18/2025 11:30 [address] EST [address] [facility] [place] [address] [facility] [address] [place] [address] Thuy Dasilva, [place] [address] 05/18/2025 1:[address] [facility] [address] [place] [address] 05/18/2025 1:[address] [facility] [address], 1st [place] [address] 05/18/2025 1:[address] [facility] [address], 1st [place] [address] 05/18/2025 2:00 PM EST Pharmacist Visit [facility] [address] [place] [address] 05/22/2025 11:15 AM EST Consult [facility] [address], 1st [place] [address] Nigel Recinos MD [address] [place] [address] 05/25/2025 11:30 AM EST Appointment [facility] [address] [place] [address] 05/25/2025 2:00 PM EST Appointment [facility] Pulmonary Function Testing [address] [place] [address] 05/25/2025 3:30 PM EST Appointment Cardiac Imaging [address] [place] [address] 05/31/2025 4:30 PM EST Appointment [facility] [address] Building [address] [place] [address] 06/01/2025 11:00 AM EST Office Visit [facility] [place] [address] [facility], [address] [place] [address] Juana Gale, CLAY DRY PRESS OPERATOR [address] [place] [address] 06/20/2025 10:30 AM EST Procedure Visit [facility] [address], 1st [place] [address] Claire Davidson MD [address] [facility] [address] [place] [address] 06/21/2025 2:00 PM EST Office Visit [facility] [place] [facility] [address] [facility], [address] [place] [address] Claire Davidson MD [address] [facility] [address] [place] [address] documented as of this encounter [...] documented as of this encounter Care Teams Hydraulic Spinner Relationship Specialty Start Date End Date Trevor Rolon DO [address] [facility] [address] [address] PCP - General 11/22/20 Mc Grant DO [address] [facility] 201 [address] Referring Physician Gastroenterology 02/21/24 El Agarwal APRN [address] [place] [address] [address] Referring Physician Gastroenterology 03/21/25 documented as of this encounter
--- OUTSIDE RECORDS SUMMARY | 2025-05-04 09:05 | XMS_ITS | Encounter Summary ---
Author Organization [facility] Address [address] [place] [address] Care Team Providers Care Hand Sander Name Role Phone Trevor Rolon DO Primary Care Provider Mc Grant DO Unavailable [phone] El Agarwal BUSINESS STRATEGIST Unavailable [phone] Encounter Details Date Type Department Care Team (Late st Contact Info) Description 01/06/2023 Orders Only External Location [address] [place] [address] Provider, External Social History Tobacco Use Types [...] Info) Description 05/14/2025 2:00 PM EST Appointment [facility] [address] [place] [address] 05/18/2025 9:15 AM EST Clinical Support [facility] Transplant Center [address]EL J301 KIKE Melgar [address] 05/18/2025 9:30 AM EST Clinical Support [facility] Transplant Center [address] G[place]EL [place]KI[place] [address] CH - CLINICAL NUTRITION [address] [place] [address] 05/18/2025 10:50 AM EST Office Visit [facility] Transplant Center [address] G[place]RIEL JKIKE Peck [address] Nj Johns MD [address] Gabriel [address] [place] [address] 05/18/2025 11:30 AM EST Social Work [facility] Transplant Center [address] JKIKE Peck [address] Thuy Dasilva, [place] [address] 05/18/2025 1:00 PM EST Appointment [facility] Radiology [address] [place] [address] 05/18/2025 1:30 PM EST Appointment [facility] Radiology [address], 1st Floor Wing C [place] [address] 05/18/2025 1:[address] [facility] Rad[facility] [address], 1st Floor Wing C [place] [address] 05/18/2025 2:00 PM EST Pharmacist Visit [facility] Transplant Center [address] [place] [address] 05/22/2025 11:15 AM EST Consult [facility] [address], 1st Floor Wing C [place] [address] Nigel Recinos MD [address] [address] 05/25/2025 11:30 AM EST Appointment [facility] [address] [place] [address] 05/25/2025 2:00 PM EST Appointment [facility] Pulmonary Function Testing [address] [place] [address] 05/25/2025 3:30 PM EST Appointment Cardiac Imaging [address] [place] [address] 05/31/2025 4:30 PM EST Appointment [facility] [address] [facility] [facility] [address] [place] [address] 06/01/2025 11:00 AM EST Office Visit [facility] [place] [address] [facility], [address] [place] [address] Juana Gale APRN [address] [place] [address] 06/20/2025 10:30 AM EST Procedure Visit [place] [facility] [address], 1st [place] [address] Claire Davidson MD [address] [address] 06/21/2025 2:00 PM EST Office Visit [facility] [address] [facility], [address] [place] [address] Claire Davidson MD [address] [address] documented as of this encounter Procedures Procedure Name Priority Date/Time Associated Diagnosis Comments XR OUTSIDE IMAGES 01/06/2023 2:11 PM EDT documented in this encounter Results * XR OUTSIDE IMAGES (01/06/2023 2:11 PM EDT) Anatomical Region Laterality Modality Radiographic Zayda ging 01/06/2023 2:11 PM EDT External Provider IMG XR PROCEDURES Final Result documented in this encounter Visit Diagnoses Not on filedocumented in this encounter Additional Health Concerns Assessment Noted Time A fall risk assessment has been complete d for the patient 08/25/2022 1:37 PM EST documented as of this encounter Care Teams Hand Sander Relationship Specialty Start Date End Date Trevor Rolon DO [address] [facility] 201 [place] [address] PCP - General 11/22/20 Mc Grant DO [address] [facility] Gabriel 201 [place] [address] Referring Physician Gastroenterology 02/21/24 El Agarwal APRN [address] [place] [address] Referring Physician Gastroenterology 03/21/25 documented as of this encounter
--- OUTSIDE RECORDS SUMMARY | 2025-05-04 09:05 | XMS_ITS | Encounter Summary ---
Author Organization [facility] Address [address] [place] [address] Care Team Providers Care Seat Cover Maker Name Role Phone Trevor Rolon DO Primary Care Provider [phone] Mc Grant DO Unavailable [phone] El Agarwal CATALYST OPERATOR Unavailable [phone] Encounter Details Date Type Department Care Team (Late st Contact Info) Description 01/06/2023 Orders Only External Location [address] [place] [address] Provider, External Social History Tobacco Use Types [...] Info) Description 05/14/2025 2:00 PM EST Appointment [facility] [address] [place] [address] 05/18/2025 9:15 AM EST Clinical Support [facility] Transplant Center [address] K[place] [address] 05/18/2025 9:30 AM EST Clinical Support [facility] Transplant Center [address] [place] [address] CH - CLINICAL NUTRITION [address] [place] [address] 05/18/2025 10:50 AM EST Office Visit [facility] Transplant Center [address] [place] [address] Nj Johns MD [address] [place] [address] 05/18/2025 11:30 AM EST Social Work [facility] Transplant Center [address] [place] [address] Thuy Dasilva, [place] [address] 05/18/2025 1:00 PM EST Appointment [facility] Radiology [address] [place] [address] 05/18/2025 1:30 PM EST Appointment [facility] Radiology [address], 1st Floor Wing C [place] [address] 05/18/2025 1:30 PM EST Appointment [place] [facility] [address], 1st Floor Wing C [place] [address] 05/18/2025 2:00 PM EST Pharmacist Visit [facility] Transplant Center [address] [place] [address] 05/22/2025 11:15 AM EST Consult [facility] [address], 1st Floor Wing C [place] [address] Nigel Recinos MD [address] [address] 05/25/2025 11:30 AM EST Appointment [facility] [address] [place] [address] 05/25/2025 2:00 PM EST Appointment [facility] Pulmonary Function Testing [address] [place] [address] 05/25/2025 3:30 PM EST Appointment Cardiac Imaging [address] [place] [address] 05/31/2025 4:30 PM EST Appointment [facility] Breast [facility] Breast Care [facility] 800 [place] [address] 06/01/2025 11:00 AM EST Office Visit [facility] [place] [address] [facility], [address] [place] [address] Juana Gale APRN [address] [place] [address] 06/20/2025 10:30 AM EST Procedure Visit [place] [facility] [address], 1st [place] [address] Claire Davidson MD [address] [address] 06/21/2025 2:00 PM EST Office Visit [facility] [address] [facility], [address] [place] [address] Claire Davidson MD [address] [address] documented as of this encounter [...] documented as of this encounter Care Teams Seat Cover Maker Relationship Specialty Start Date End Date Trevor Rolon DO [address] [facility] 201 [place] [address] PCP - General 11/22/20 Mc Grant DO [address] [facility] Gabriel 201 [place] [address] Referring Physician Gastroenterology 02/21/24 El Agarwal APRN [address] [place] [address] Referring Physician Gastroenterology 03/21/25 documented as of this encounter
--- OUTSIDE RECORDS SUMMARY | 2025-05-04 09:05 | XMS_ITS | Encounter Summary ---
Author Organization [facility] Address [address] [place] [address] Care Team Providers Care Food Runner Name Role Phone Trevor Rolon DO Primary Care Provider Mc Grant DO Unavailable +-[phone] El Agarwal HOUSE MANAGER Unavailable [phone] Encounter Details Date Type Department Care Team (Late st Contact Info) Description 03/01/2023 Orders Only External Location [address] [place] [address] Provider, External Social History Tobacco Use Types [...] Info) Description 05/14/2025 2:00 PM EST Appointment [facility] [address] [place] [address] 05/18/2025 9:15 AM EST Clinical Support [facility] Transplant Center [address]EL J[address] [place] [address] 05/18/2025 9:30 AM EST Clinical Support [facility] Transplant Center [address] [place] [address] CH - CLINICAL NUTRITION [address] [place] [address] 05/18/2025 10:50 AM EST Office Visit [facility] Transplant Center [address] [place] [address] Nj Johns MD [address] [place] [address] 05/18/2025 11:30 AM EST Social Work [facility] Transplant Center [address] JKI[place] Peck [address] Thuy Dasilva, [place] [address] 05/18/2025 1:00 PM EST Appointment [facility] Radiology [address] [place] [address] 05/18/2025 1:30 PM EST Appointment [facility] Radiology [address], 1st Floor Wing C [place] [address] 05/18/2025 1:30 PM EST Appointment [facility] [address], 1st Floor Wing C [place] [address] 05/18/2025 2:00 PM EST Pharmacist Visit [facility] Transplant Center [address] [place] [address] 05/22/2025 11:15 AM EST Consult [facility] [address], 1st Floor Wing C [place] [address] Nigel Recinos MD [address] [address] 05/25/2025 11:30 AM EST Appointment [facility] [address] [place] [address] 05/25/2025 2:00 PM EST Appointment [facility] Pulmonary Function Testing [address] [place] [address] 05/25/2025 3:30 PM EST Appointment Cardiac Imaging [address] [place] [address] 05/31/2025 4:30 PM EST Appointment [facility] Breast Care [facility] Breast Care Center [facility] [address] [facility] 800 [place] [address] 06/01/2025 11:00 AM EST Office Visit [facility] [place] [address] [facility], [address] [place] [address] Juana Gale APRN [address] [place] [address] 06/20/2025 10:30 AM EST Procedure Visit [place] [facility] [address], 1st [place] [address] Claire Davidson MD [address] [address] 06/21/2025 2:00 PM EST Office Visit [facility] Care Clinic [address] [facility], [address] [place] [address] Claire Davidson MD [address] [address] documented as of this encounter [...] documented as of this encounter Care Teams Food Runner Relationship Specialty Start Date End Date Trevor Rolon DO [address] [facility] 201 [place] [address] PCP - General 11/22/20 Mc Grant DO [address] [facility] Gabriel [address] [place] [address] Referring Physician Gastroenterology 02/21/24 El Agarwal APRN [address] [place] [address] Referring Physician Gastroenterology 03/21/25 documented as of this encounter
--- OUTSIDE RECORDS SUMMARY | 2025-05-04 09:06 | XMS_ITS | Encounter Summary ---
Author Organization [facility] Address [address] [place] [address] Care Team Providers Care Dinkey Engine Mechanic Name Role Phone Trevor Rolon DO Primary Care Provider [phone] Mc Grant DO Unavailable [phone] El Agarwal PURCHASING AND CLAIMS SUPERVISOR Unavailable [phone] Encounter Details Date Type Department Care Team (Late st Contact Info) Description 08/23/2022 Orders Only External Location [address] [place] [address] Provider, External Social History Tobacco Use Types [...] Description 05/14/2025 2:00 PM EST Appointment [facility] MRI [address] [place] [phone] 05/18/2025 9:15 AM EST Clinical Support [facility] Transplant Center [address] [place] [address] 05/18/2025 9:30 AM EST Clinical Support [facility] Transplant Center [address] [place] [address] CH - CLINICAL NUTRITION [address] [place] [address] 05/18/2025 10:50 AM EST Office Visit [facility] Transplant Center [address] [place] [address] Nj Johns MD [address] [place] [address] 05/18/2025 11:30 AM EST Social Work [facility] Transplant Center [address] [place] [address] Thuy Dasilva, [place] [address] 05/18/2025 1:00 PM EST Appointment [facility] Radiology [address] [place] [address] 05/18/2025 1:30 PM EST Appointment [facility] Radiology [address], 1st [place] [address] 05/18/2025 1:30 PM EST Appointment [facility] [address], 1st [place] [address] 05/18/2025 2:00 PM EST Pharmacist Visit [facility] Transplant Center [address] [place] [address] 05/22/2025 11:15 AM EST Consult [facility] [address], 1st [place] [address] Nigel Recinos MD [address] [address] 05/25/2025 11:30 AM EST Appointment [facility] Radiology [address] [place] [address] 05/25/2025 2:00 PM EST Appointment [facility] Pulmonary Function Testing [address] [place] [address] 05/25/2025 3:30 PM EST Appointment Cardiac Imaging [address] [place] [address] 05/31/2025 4:30 PM EST Appointment [facility] Breast Care [facility] Breast Care Center [address] 800 [place] [address] 06/01/2025 11:00 AM EST Office Visit [facility] [place] [address] [facility], [address] [place] [address] Juana Gale APRN [address] [place] [address] 06/20/2025 10:30 AM EST Procedure Visit [place] [facility] [address], 1st [place] [address] Claire Davidson MD [address] [address] 06/21/2025 2:00 PM EST Office Visit [facility] Care Clinic [address] [facility], [address] [place] [address] Claire Davidson MD [address] 01 [place] [address] documented as of this encounter [...] on filedocumented in this encounter Care Teams Dinkey Engine Mechanic Relationship Specialty Start Date End Date Trevor Rolon DO [address] [facility] 201 [place] [address] PCP - General 11/22/20 Mc Grant DO [address] [facility] Gabriel 201 [place] [address] Referring Physician Gastroenterology 02/21/24 El Agarwal APRN [address] [place] [address] Referring Physician Gastroenterology 03/21/25 documented as of this encounter
--- OUTSIDE RECORDS SUMMARY | 2025-05-04 09:07 | XMS_ITS | Encounter Summary ---
Author Organization [facility] Address [address] [place] [address] Care Team Providers Care Steelworker Name Role Phone Trevor Rolon DO Primary Care Provider [phone] Mc Grant DO Unavailable [phone] El Agarwal LEAD ATHLETE Unavailable [phone] Encounter Details Date Type Department Care Team (Late Contact Info) Description 11/15/2024 Orders Only External Location [address] [place] [address] Provider, External Social History Tobacco Use Types [...] Description 05/14/2025 2:00 PM EST Appointment [facility] MRI [address] [place] [address] 05/18/2025 9:15 AM EST Clinical Support [facility] Transplant Center [address] [place] [address] 05/18/2025 9:30 AM EST Clinical Support [facility] Transplant Center [address] [place] [address] CH - CLINICAL NUTRITION 800 [place] [address] 05/18/2025 10:50 AM EST Office Visit [facility] Transplant Center [address] [place] [address] Nj Johns MD [address] [facility] [address] [place] [address] 05/18/2025 11:30 AM EST Social Work [facility] Transplant Center [address] [place] [address] Thuy Dasilva, [place] [address] 05/18/2025 1:00 PM EST Appointment [facility] Radiology [address] [place] [address] 05/18/2025 1:30 PM EST Appointment [facility] Radiology [address], 1st [place] [address] 05/18/2025 1:30 PM EST Appointment [facility] Radiology [address], 1st [place] [address] 05/18/2025 2:00 PM EST Pharmacist Visit [facility] Transplant Center [address] [place] [address] 05/22/2025 11:15 AM EST Consult [place] [facility] [address], 1st [place] [address] Nigel Recinos MD [address] Gabriel Emani01 [place] [address] 05/25/2025 11:30 AM EST Appointment [facility] [address] [place] [address] 05/25/2025 2:00 PM EST Appointment [facility] Pulmonary Function Testing [address] [place] [address] 05/25/2025 3:30 PM EST Appointment Cardiac Imaging [address] [place] [address] 05/31/2025 4:30 PM EST Appointment [facility] Breast [facility] Breast Care [address] Building 800 [place] [address] 06/01/2025 11:00 AM EST Office Visit [facility] [place] [address] [facility], [address] [place] [address] Juana Gale APRN [address] [place] [address] 06/20/2025 10:30 AM EST Procedure Visit [facility] [address], 1st [place] [address] Claire Davidson MD [address] Gabriel Joaquin01 [place] [address] 06/21/2025 2:00 PM EST Office Visit [facility] [address] [facility], [address] [place] [address] Claire Davidson MD [address] [place] [address] documented as of this encounter Procedures Procedure Name Priority Date/Time Associated Diagnosis Comments XR MSK OUTSIDE IMAGES 11/15/2024 1:32 PM EDT documented in this encounter Results * XR MSK OUTSIDE IMAGES (11/15/2024 1:32 PM EDT) Anatomical Region Laterality Modality Radiographic Zayda ging 11/15/2024 1:32 PM EDT External Provider IMG XR PROCEDURES [...] documented as of this encounter Care Teams Steelworker Relationship Specialty Start Date End Date Trevor Rolon DO [address] [facility] 201 [place] [address] PCP - General 11/22/20 Mc Grant DO [address] [facility] 201 [place] [address] Referring Physician Gastroenterology 02/21/24 El Agarwal APRN [address] [place] [address] Referring Physician Gastroenterology 03/21/25 documented as of this encounter
--- OUTSIDE RECORDS SUMMARY | 2025-05-04 09:07 | XMS_ITS | Encounter Summary ---
Author Organization [facility] Address [address] [place] [address] Care Team Providers Care Satellite Communications Operator Name Role Phone Trevor Rolon DO Primary Care Provider [phone] Mc Grant DO Unavailable [phone] El Agarwal PLASTICS PATTERNMAKER Unavailable [phone] Encounter Details Date Type Department Care Team (Late Contact Info) Description 11/15/2024 Orders Only External Location [address] [place] [address] Provider, External Social History Tobacco Use Types [...] Description 05/14/2025 2:00 PM EST Appointment [facility] MRI [address] [place] [id number] 05/18/2025 9:15 AM EST Clinical Support [facility] Transplant Center [address] [place] [address] 05/18/2025 9:30 AM EST Clinical Support [facility] Transplant Center [address] [place] [address] CH - CLINICAL NUTRITION 800 [place] [address] 05/18/2025 10:50 AM EST Office Visit [facility] Transplant Center [address] [place] [address] Nj Johns MD [address] [facility] [address] [place] [address] 05/18/2025 11:30 AM EST Social Work [facility] Transplant Center [address] [address] Thuy Dasilva, [place] [address] 05/18/2025 1:00 PM EST Appointment [facility] Radiology [address] [place] [address] 05/18/2025 1:30 PM EST Appointment [facility] Radiology [address], 1st [place] [address] 05/18/2025 1:30 PM EST Appointment [facility] Radiology [address], 1st [place] [address] 05/18/2025 2:00 PM EST Pharmacist Visit [facility] Transplant Center [address] [place] [address] 05/22/2025 11:15 AM EST Consult [place] [facility] [address], 1st [place] [address] Nigel Recinos MD [address] Gabriel [address]man[address] [place] [address] 05/25/2025 11:30 AM EST Appointment [facility] Radiology [address] [place] [address] 05/25/2025 2:00 PM EST Appointment [facility] Pulmonary Function Testing [address] [place] [address] 05/25/2025 3:30 PM EST Appointment Cardiac Imaging [address] [place] [address] 05/31/2025 4:30 PM EST Appointment [facility] Breast Care [address] Building 800 [place] [address] 06/01/2025 11:00 AM EST Office Visit [facility] [place] [address] [facility], [address] [place] [address] Juana Gale APRN [address] [place] [address] 06/20/2025 10:30 AM EST Procedure Visit [facility] [address], 1st [place] [address] Claire Davidson MD [address] Gabriel [address] [place] [address] 06/21/2025 2:00 PM EST Office Visit [facility] Clinic [address] [facility], [address] [place] [address] Claire Davidson MD [address] [place] [address] documented as of this encounter [...] documented as of this encounter Care Teams Satellite Communications Operator Relationship Specialty Start Date End Date Trevor Rolon DO [address] [facility] 201 [place] [address] PCP - General 11/22/20 Mc Grant DO [address] [facility] 201 [place] [address] Referring Physician Gastroenterology 02/21/24 El Agarwal APRN [address] [place] [address] Referring Physician Gastroenterology 03/21/25 documented as of this encounter
--- OUTSIDE RECORDS SUMMARY | 2025-05-04 09:07 | XMS_ITS | Encounter Summary ---
Author Organization [facility] Address [address] [place] [address] Care Team Providers Care Mine Geologist Name Role Phone Trevor Rolon DO Primary Care Provider [phone] Mc Grant DO Unavailable [phone] El Agarwal DEBURRING AND TOOLING MACHINE OPERATOR Unavailable [phone] Encounter Details Date Type Department Care Team (Late Contact Info) Description 11/15/2024 Orders Only External Location [address] [place] [address] Provider, External Social History Tobacco Use Types [...] Description 05/14/2025 2:00 PM EST Appointment [facility] MRI [address] [place] [id number] 05/18/2025 9:15 AM EST Clinical Support [facility] [address] [place] [address] 05/18/2025 9:30 AM EST Clinical Support [facility] [address] [place] [address] CH - CLINICAL NUTRITION [address] [place] [address] 05/18/2025 10:50 AM EST Office Visit [facility] [address] [place] [address] Nj Johns MD [address] [facility] [address] [place] [address] 05/18/2025 11:30 AM EST Social Work [facility] [address] [place] [address] Thuy Dasilva, [place] [address] 05/18/2025 1:00 PM EST Appointment [facility] [address] [place] [address] 05/18/2025 1:30 PM EST Appointment [facility] [address], 1st [place] [address] 05/18/2025 1:30 PM EST Appointment [facility] [address], 1st [place] [address] 05/18/2025 2:00 PM EST Pharmacist Visit [facility] [address] [place] [address] 05/22/2025 11:15 AM EST Consult [place] [facility] [address], 1st [place] [address] Nigel Recinos MD [address] [place] [address] 05/25/2025 11:30 AM EST Appointment [facility] [address] [place] [address] 05/25/2025 2:00 PM EST Appointment [facility] Pulmonary Function Testing [address] [place] [address] 05/25/2025 3:30 PM EST Appointment Cardiac Imaging [address] [place] [address] 05/31/2025 4:30 PM EST Appointment [facility] Breast Care [address] Building [address] [place] [address] 06/01/2025 11:00 AM EST Office Visit [facility] [place] [address] [facility], [address] [place] [address] Juana Gale APRN [address] [place] [address] 06/20/2025 10:30 AM EST Procedure Visit [facility] [address], 1st [place] [address] Claire Davidson MD [address] [place] [address] 06/21/2025 2:00 PM EST Office Visit [facility] [address] [facility], [address] [place] [address] Claire Davidson MD [address] [place] [address] documented as of this encounter [...] documented as of this encounter Care Teams Mine Geologist Relationship Specialty Start Date End Date Trevor Rolon DO [address] [facility] 201 [place] [address] PCP - General 11/22/20 Mc Grant DO [address] [address] Referring Physician Gastroenterology 02/21/24 El Agarwal APRN [address] [place] [address] Referring Physician Gastroenterology 03/21/25 documented as of this encounter
--- OUTSIDE RECORDS SUMMARY | 2025-05-04 09:07 | XMS_ITS ---
Author Organization [facility] Address [address] [place] [address] Care Team Providers Care Account Executive Trainee Name Role Phone Trevor Rolon DO Primary Care Provider Mc Grant DO Unavailable [phone] El Agarwal APRN Unavailable [phone] Transplant Episode Liver Candidate [facility] ([place], [place]) - [facility] Referred on 03/21/2025 Marked as Active on 03/21/2025 Reason: Scheduled for ICE Liver CoordinatorMadyson Sarabia RN Fax: N/A Email: N/A Scores Score Value Updated Expires Exceptions/Mela sons CPRA Not available MELD (Calc) 20 04/11/2025 Care Team Name Role Phone Fax Email Madyson Sarabia RN Liver Coordinator [phone] N/A N/A Thuy Dasilva LCSW Customer Relations Coordinator [phone] N/A N/A Asael Esteves MD Surgeon [phone] N/A El Agarwal APRN Referring Physician [phone] N/A Events Pre-Transplant Referred: 03/21/2025 Committee: 04/09/2025 Appointments (04/04/2025 - 06/04/2025) When With Visit Type Description 05/18/2025 Transplant - Heather Almanza Dietitian - New Patient 05/18/2025 Transplant LAB 05/18/2025 Transplant Medication Manag ement 05/18/2025 Transplant - Ronny Dasilva Social Wo rk - New Patient 05/18/2025 Transplant - Damon Johns Office V isit - Transplant
--- OUTSIDE RECORDS SUMMARY | 2025-05-04 09:07 | XMS_ITS | Encounter Summary ---
Author Organization [facility] Address [address] [place] [address] Care Team Providers Care Welding Process Engineer Name Role Phone Trevor Rolon DO Primary Care Provider [phone] Mc Grant DO Unavailable [phone] El Agarwal DRAW FRAME TENDER Unavailable [phone] Encounter Details Date Type Department Care Team (Late Contact Info) Description 11/15/2024 Orders Only External Location [address] [place] [address] Provider, External Social History Tobacco Use Types [...] 05/14/2025 2:00 PM EST Appointment [facility] MRI [address] [place] [id number] 05/18/2025 9:15 AM EST Clinical Support [facility] [address] [place] [place] [address] 05/18/2025 9:30 AM EST Clinical Support [facility] [address] [place] [address] CH - CLINICAL NUTRITION [address] [place] [address] 05/18/2025 10:50 AM EST Office Visit [facility] [address] [place] [address] Nj Johns MD [address] [facility] [address] [place] [address] 05/18/2025 11:30 AM EST Social Work [facility] [address] [place] [address] Thuy Dasilva, [place] [address] 05/18/2025 1:00 PM EST Appointment [facility] [address] [place] [address] 05/18/2025 1:30 PM EST Appointment [facility] [address], 1st [place] [address] 05/18/2025 1:30 PM EST Appointment [facility] [address], 1st [place] [address] 05/18/2025 2:00 PM EST Pharmacist Visit [facility] [address] [place] [address] 05/22/2025 11:15 AM EST Consult [place] [facility] [address], 1st [place] [address] Nigel Recinos MD [address] [place] [address] 05/25/2025 11:30 AM EST Appointment [facility] [address] [place] [address] 05/25/2025 2:00 PM EST Appointment [facility] Pulmonary Function Testing [address] [place] [address] 05/25/2025 3:30 PM EST Appointment Cardiac Imaging [address] [place] [address] 05/31/2025 4:30 PM EST Appointment [facility] Breast Care [address] [place] [address] 06/01/2025 11:00 AM EST Office Visit [facility] [place] [address] [facility], [address] [place] [address] Juana Gale APRN [address] [place] [address] 06/20/2025 10:30 AM EST Procedure Visit [facility] [address], 1st [place] [address] Claire Davidson MD [address] [place] [address] 06/21/2025 2:00 PM EST Office Visit [facility] [address] [facility], [address] [place] [address] Claire Davidson MD [address] [place] [address] documented as of this encounter [...] documented as of this encounter Care Teams Welding Process Engineer Relationship Specialty Start Date End Date Trevor Rolon DO [address] [facility] 201 [place] [address] PCP - General 11/22/20 Mc Grant DO [address] [facility] 201 [place] [address] Referring Physician Gastroenterology 02/21/24 El Agarwal APRN [address] [place] [address] Referring Physician Gastroenterology 03/21/25 documented as of this encounter
--- OUTSIDE RECORDS SUMMARY | 2025-05-04 09:07 | XMS_ITS | Encounter Summary ---
Author Organization [facility] Address [address] [place] [address] Care Team Providers Care Investment Banking Manager Name Role Phone Trevor Rolon DO Primary Care Provider [phone] Mc Grant DO Unavailable [phone] El Agarwal WEALTH MANAGEMENT CONSULTANT Unavailable [phone] Encounter Details Date Type Department Care Team (Late Contact Info) Description 11/15/2024 Orders Only External Location [address] [place] [address] Provider, External Social History Tobacco Use Types [...] Description 05/14/2025 2:00 PM EST Appointment [facility] MRI [address] [place] [id number] 05/18/2025 9:15 AM EST Clinical Support [facility] [address] [place] [address] 05/18/2025 9:30 AM EST Clinical Support [facility] [address] [place] [address] CH - CLINICAL NUTRITION [address] [place] [address] 05/18/2025 10:50 AM EST Office Visit [facility] [address] [place] [address] Nj Johns MD [address] [facility] [address] [place] [address] 05/18/2025 11:30 AM EST Social Work [facility] [address] [place] [address] Thuy Dasilva, [place] [address] 05/18/2025 1:[address] [facility] Radiology [address] [place] [address] 05/18/2025 1:[address] [facility]iology [address], 1st [place] [address] 05/18/2025 1:[address] [facility] Radiology [address], 1[address] [place] [address] 05/18/2025 2:00 PM EST Pharmacist Visit [facility] [address] [place] [address] 05/22/2025 11:15 AM EST Consult [place] [facility] [address], 1st [place] [address] Nigel Recinos MD [address] [place] [address] 05/25/2025 11:30 AM EST Appointment [facility] [address] [place] [address] 05/25/2025 2:00 PM EST Appointment [facility] Pulmonary Function Testing [address] [place] [address] 05/25/2025 3:30 PM EST Appointment Cardiac Imaging [address] [place] [address] 05/31/2025 4:30 PM EST Appointment [facility] Breast Care [address] [place] [address] 06/01/2025 11:00 AM EST Office Visit [facility] [place] [address] [facility], [address] [place] [address] Juana Gale APRN [address] [place] [address] 06/20/2025 10:30 AM EST Procedure Visit [facility] [address], 1st [place] [address] Claire Davidson MD [address] [place] [address] 06/21/2025 2:00 PM EST Office Visit [facility] [address] [facility], [address] [place] [address] Claire Davidson MD [address] [place] [address] documented as of this encounter [...] documented as of this encounter Care Teams Investment Banking Manager Relationship Specialty Start Date End Date Trevor Rolon DO [address] [facility] 201 [place] [address] PCP - General 11/22/20 Mc Grant DO [address] [facility] 201 [place] [address] Referring Physician Gastroenterology 02/21/24 El Agarwal APRN [address] [place] [address] Referring Physician Gastroenterology 03/21/25 documented as of this encounter
--- OUTSIDE RECORDS SUMMARY | 2025-05-04 09:08 | XMS_ITS | Encounter Summary ---
Author Organization [facility] Address [address] [place] [address] Care Team Providers Care Stoker Installation Mechanic Name Role Phone Trevor Rolon DO Primary Care Provider [phone] Mc Grant DO Unavailable [phone] El Agarwal AUTO CLAIM REPRESENTATIVE Unavailable [phone] Encounter Details Date Type Department Care Team (Late Contact Info) Description 10/24/2024 Orders Only External Location [address] [place] [address] Provider, External Social History Tobacco Use Types [...] Description 05/14/2025 2:00 PM EST Appointment [facility] [address] [place] [id number] 05/18/2025 9:15 AM EST Clinical Support [facility] [address] [place] [address] 05/18/2025 9:30 AM EST Clinical Support [facility] [address] [place] [address] CH - CLINICAL NUTRITION [address] [place] [address] 05/18/2025 10:50 AM EST Office Visit [facility] [address] [place] [address] Nj Johns MD [address] [facility] [address] [place] [address] 05/18/2025 11:30 AM EST Social Work [facility] [address] [place] [address] Thuy Dasilva, [place] [address] 05/18/2025 1:00 PM EST Appointment [facility] Radiology [address] [place] [address] 05/18/2025 1:30 PM EST Appointment [facility] [address], 1st [place] [address] 05/18/2025 1:30 PM EST Appointment [facility] [address], 1[address] [place] [address] 05/18/2025 2:00 PM EST Pharmacist Visit [facility] [address] [place] [address] 05/22/2025 11:15 AM EST Consult [place] [facility] [address], 1st [place] [address] Nigel Recinos MD [address] [place] [address] 05/25/2025 11:30 AM EST Appointment [facility] [address] [place] [address] 05/25/2025 2:00 PM EST Appointment [facility] Pulmonary Function Testing [address] [place] [address] 05/25/2025 3:30 PM EST Appointment Cardiac Imaging [address] [place] [address] 05/31/2025 4:30 PM EST Appointment [facility] Breast Care [address] [place] [address] 06/01/2025 11:00 AM EST [facility] Visit [facility] [place] [address] [facility] [place] [address] Juana Gale APRN [address] [place] [address] 06/20/2025 10:30 AM EST Procedure Visit [facility] [address], 1st [place] [address] Claire Davidson MD [address] [place] [address] 06/21/2025 2:00 PM EST Office Visit [facility] [address] [facility] [place] [address] Claire Davidson MD [address] [place] [address] documented as of this encounter [...] documented as of this encounter Care Teams Stoker Installation Mechanic Relationship Specialty Start Date End Date Trevor Rolon DO [address] [facility] 201 [place] [address] PCP - General 11/22/20 Mc Grant DO [address] [facility] 201 [place] [address] Referring Physician Gastroenterology 02/21/24 El Agarwal APRN [address] [place] [address] Referring Physician Gastroenterology 03/21/25 documented as of this encounter
--- OUTSIDE RECORDS SUMMARY | 2025-05-04 09:08 | XMS_ITS | Encounter Summary ---
Author Organization [facility] Address [address] [place] [address] Care Team Providers Care Vice President Consulting Services Name Role Phone Trevor Rolon DO Primary Care Provider Mc Grant DO Unavailable [phone] El Agarwal SIGN LANGUAGE TEACHER Unavailable [phone] Reason for Referral * Consultation (Routine) - Closed Specialty Diagnoses / Procedures Referred By Truong bella Referred To Contact Transplant Diagnoses End-stage liver disease (CMS/HCC) Asael Esteves MD [address] [address] Phone: tel: fax: [facility] [place] [address] [address] Phone: tel: fax: Referral ID Status Reason Start Date Expiration Date V isits Requested Visits Authorized [id number] Closed Specialty Services Required 03/21/2025 09/20/2026 1 1 Reason for Visit * Reason Comments Appointment Encounter Details Date Type Department Care Team (Late st Contact Info) Description 03/21/2025 Telephone [facility] [place] [address] [place] [address] [place] [address] Appointment Social History Tobacco Use Types Packs/Day [...] Description 05/14/2025 2:00 PM EST Appointment [facility] [address] [place] [address] 05/18/2025 9:15 AM EST Clinical Support [facility] [place] [address] [address] 05/18/2025 9:30 AM EST Clinical Support [facility] [place] [address] [place] [phone] [facility] - CLINICAL NUTRITION [address] [place] [address] 05/18/2025 10:50 AM EST Office Visit [facility] [address] [place] [address] Nj Johns MD [address] [place] [phone] 05/18/2025 11:30 AM EST Social Work [facility] [address] [place] [address] Thuy Dasilva, [place] [address] 05/18/2025 1:00 PM EST Appointment [facility] Radiology [address] [place] [address] 05/18/2025 1:30 PM EST Appointment [facility] [address] [place] [phone] 05/18/2025 1:30 PM EST Appointment [facility] [address] 1[address] [place] [address] 05/18/2025 2:00 PM EST Pharmacist Visit [facility] [address] [place] [phone] 05/22/2025 11:15 AM EST Consult [facility] [address] 1[address] [place] [phone] Nigel Recinos MD [address] [place] [address] 05/25/2025 11:30 AM EST Appointment [facility] [address] [place] [address] 05/25/2025 2:00 PM EST Appointment [facility] Pulmonary Function Testing [address] [place] [address] 05/25/2025 3:30 PM EST Appointment Cardiac Imaging [address] [place] [address] 05/31/2025 4:30 PM EST Appointment [facility] [address] [place] [address] 06/01/2025 11:00 AM EST Office Visit [facility] [address] [facility], [address] [place] [address] Juana Gale, CYDNEY [address] [place] [address] 06/20/2025 10:30 AM EST Procedure Visit [place] [facility] [address] [place] [address] Claire Davidson MD [address] [facility] [address] [place] [address] 06/21/2025 2:00 PM EST Office Visit [facility] [address] [facility], [address] [place] [address] Claire Davidson MD [address] [facility] [address] [place] [address] Scheduled Referrals Name Type Priority Associated Diagnoses Order Schedule Initial Clinic Evaluation - Transplant Hepatology Outpatient Referral Routine End-stage liver disease (CMS/HCC) 1 Occurrences starting 03/21/2025 until 09/22/2026 documented as of this encounter Results * Alcohol Urine (04/03/2025 8:09 AM EDT) Alcohol Urine Negative Negative 04/03/2025 10:25 AM EDT [facility] Urine Urine specimen obtained by clean catch procedure / Unknown Non-blood Collection / Unknown 04/03/2025 8:09 AM EDT 04/03/2025 8:43 AM EDT Narrative [facility] - 04/03/2025 10:25 AM EDT The correlation between urine and serum ethanol concentration is highly variable. Test performed by Gas Chromatography at the [facility] Special Chemistry Laboratory. This test was developed and its performance characteristics determined by [facility]. It has not been cleared or approved by the FDA.The laboratory is regulated under CLIA as qualified to perform high-complexity testing. This test is used for clinical purposes only. The correlation between urine and serum ethanol concentration is highly variable. Test performed by Gas Chromatography at the [facility]. This test was developed and its performance characteristics determined by [facility]. It has not been cleared or approved by the FDA.The laboratory is regulated under CLIA as qualified to perform high-complexity testing. This test is used for clinical purposes only. Asael Esteves MD LAB URINE ORDERABLES Final Resul t [facility] [address] [place] [address] * (ABNORMAL) Comprehensive Urine Drug Screening, Qualitative Assay, >= 27 Drug Classes (58:09 AM EDT) Acetaminophen Negative Negative 04/04/2025 8:17 AM EDT [facility] Alprazolam Negative Negative 04/04/2025 8:17 AM EDT [facility] Amantadine Negative Negative 04/04/2025 8:17 AM EDT [facility] Amitriptyline Negative Negative 04/04/2025 8:17 AM EDT [facility] Amphetamine Negative Negative 04/04/2025 8:17 AM EDT [facility] Atenolol Negative Negative 04/04/2025 8:17 AM EDT [facility] Benzoylecgonine Negative Negative 8:17 AM EDT [facility] Bisoprolol Negative Negative 04/04/2025 8:17 AM EDT [facility] Bupropion Negative Negative 04/04/2025 8:17 AM EDT [facility] Butalbital Negative Negative 04/04/2025 8:17 AM EDT [facility] Carbamazepine Negative Negative 04/04/2025 8:17 AM EDT [facility] Carisoprodol Negative Negative 04/04/2025 8:17 AM EDT [facility] Chlorpheniramine Negative Negative 04/04/20 8:17 AM EDT [facility] Citalopram Negative Negative 04/04/2025 8:17 AM EDT [facility] Clindamycin Negative Negative 04/04/2025 8:17 AM EDT [facility] Clonidine Negative Negative 04/04/2025 8:17 AM EDT [facility] Clopidogrel / Ticlopidine Negative Negative 04/04/2025 8:17 AM EDT [facility] Cocaethylene Negative Negative 04/04/2025 8:17 AM EDT [facility] Cocaine Negative Negative 04/04/2025 8:17 AM EDT [facility] Codeine Negative Negative 04/04/2025 8:17 AM EDT [facility] Cyclobenzaprine Positive(A) Negative 04/04/20 8:17 AM EDT [facility] Desvenlafaxine Negative Negative 04/04/2025 8:17 AM EDT [facility] Dextromethorphan Negative Negative 04/04/20 8:17 AM EDT [facility] Diazepam Negative Negative 04/04/2025 8:17 AM EDT [facility] Diltiazem Negative Negative 04/04/2025 8:17 AM EDT [facility] Diphenhydramine Negative Negative 8:17 AM EDT [facility] Doxepine Negative Negative 04/04/2025 8:17 AM EDT [facility] Doxylamine Negative Negative 04/04/2025 8:17 AM EDT [facility] EDDP-Methadone metabolite Negative Negative 04/04/2025 8:17 AM EDT [facility] Fentanyl Negative Negative 04/04/2025 8:17 AM EDT [facility] Fluconazole Positive(A) Negative 04/04/2025 8:17 AM EDT [facility] Fluoxetine Negative Negative 04/04/2025 8:17 AM EDT [facility] Guaifenesin Negative Negative 04/04/2025 8:17 AM EDT [facility] Haloperidol Negative Negative 04/04/2025 8:17 AM EDT [facility] Heroin/6-FROYLAN Negative Negative 04/04/2025 8:17 AM EDT [facility] Hydrocodone Negative Negative 04/04/2025 8:17 AM EDT [facility] Hydroxyzine / Cetirizine metabolite Negative Negative 04/04/2025 8:17 AM EDT [facility] Ibuprofen Negative Negative 04/04/2025 8:17 AM EDT [facility] Imipramine Negative Negative 04/04/2025 8:17 AM EDT [facility] Ketamine Negative Negative 04/04/2025 8:17 AM EDT [facility] Labetolol Negative Negative 04/04/2025 8:17 AM EDT [facility] Lamotrigine Negative Negative 04/04/2025 8:17 AM EDT [facility] Levetiracetam Negative Negative 04/04/2025 8:17 AM EDT [facility] Lidocaine Negative Negative 04/04/2025 8:17 AM EDT [facility] MDA Negative Negative 04/04/2025 8:17 AM EDT [facility] MDMA Negative Negative 04/04/2025 8:17 AM EDT [facility] Memantine Negative Negative 04/04/2025 8:17 AM EDT [facility] Meperidine Negative Negative 04/04/2025 8:17 AM EDT [facility] Meprobamate Negative Negative 04/04/2025 8:17 AM EDT [facility] Metaxalone Negative Negative 04/04/2025 8:17 AM EDT [facility] Methamphetamine Negative Negative 8:17 AM EDT [facility] Methocarbamol Negative Negative 04/04/2025 8:17 AM EDT [facility] Methylecgonine Negative Negative 04/04/2025 8:17 AM EDT [facility] Metoclopramide Negative Negative 04/04/2025 8:17 AM EDT [facility] Metoprolol Positive(A) Negative 04/04/2025 8:17 AM EDT [facility] Metronidazole Negative Negative 04/04/2025 8:17 AM EDT [facility] Midazolam Negative Negative 04/04/2025 8:17 AM EDT [facility] Midazolam Metabolite Negative Negative 04/04/2025 8:17 AM EDT [facility] Mirtazapine Negative Negative 04/04/2025 8:17 AM EDT [facility] Misc Test Result Negative Negative 04/04/20 8:17 AM EDT [facility] Naproxen Negative Negative 04/04/2025 8:17 AM EDT [facility] Nefazodone Negative Negative 04/04/2025 8:17 AM EDT [facility] Norfentanyl Negative Negative 04/04/2025 8:17 AM EDT [facility] Nortriptyline Negative Negative 04/04/2025 8:17 AM EDT [facility] Ordanstron Negative Negative 04/04/2025 8:17 AM EDT [facility] Oxcarbazepine Negative Negative 04/04/2025 8:17 AM EDT [facility] Oxycodone Positive(A) Negative 04/04/2025 8:17 AM EDT [facility] Paroxethine Negative Negative 04/04/2025 8:17 AM EDT [facility] Phenobarbital Negative Negative 04/04/2025 8:17 AM EDT [facility] Phentermine Negative Negative 04/04/2025 8:17 AM EDT [facility] Phenytoin Negative Negative 04/04/2025 8:17 AM EDT [facility] Primidone Negative Negative 04/04/2025 8:17 AM EDT [facility] Promethazine Negative Negative 04/04/2025 8:17 AM EDT [facility] Propofol Negative Negative 04/04/2025 8:17 AM EDT [facility] Propranolol Negative Negative 04/04/2025 8:17 AM EDT [facility] Quetiapine Negative Negative 04/04/2025 8:17 AM EDT [facility] Quinine Negative Negative 04/04/2025 8:17 AM EDT [facility] Rantidine Negative Negative 04/04/2025 8:17 AM EDT [facility] Sertraline Negative Negative 04/04/2025 8:17 AM EDT [facility] Spironolactone Positive(A) Negative 8:17 AM EDT [facility] Tizanidine Negative Negative 04/04/2025 8:17 AM EDT [facility] Topiramate Negative Negative 04/04/2025 8:17 AM EDT [facility] Tramadol Negative Negative 04/04/2025 8:17 AM EDT [facility] Trazadone/ Trazadone metabolite Negative Negative 04/04/2025 8:17 AM EDT [facility] Trimethoprim Negative Negative 04/04/2025 8:17 AM EDT [facility] Valproic Acid Negative Negative 04/04/2025 8:17 AM EDT [facility] Venlafaxine Negative Negative 04/04/2025 8:17 AM EDT [facility] Verapamil Negative Negative 04/04/2025 8:17 AM EDT [facility] Zolpidem Negative Negative 04/04/2025 8:17 AM EDT [facility] Xylazine Negative Negative 04/04/2025 8:17 AM EDT [facility] Urine Urine specimen obtained by clean catch procedure / Unknown Non-blood Collection / Unknown 04/03/2025 8:09 AM EDT 04/03/2025 8:43 AM EDT us Asael Esteves MD LAB URINE ORDERABLES Final Resul t [facility] [address] [place] [address] * Hepatitis A Antibody IgG (04/03/2025 6:38 AM EDT) Hepatitis A Antibody IgG Negative Negative 04/03/2025 8:47 AM EDT [facility] Blood Venous blood specimen / Unknown Venipuncture / Unknown 04/03/2025 6:38 AM EDT 04/03/2025 7:02 AM EDT us Asael Esteves MD LAB BLOOD ORDERABLES Final Resul t [facility] [address] [place] [address] * HEPATITIS B SURFACE ANTIBODY, QUANTITATIVE (04/03/2025 6:38 AM EDT) Hepatitis B Surface Antibody, Quantitative <8.00 NonReactiv e: <8, Grayzone: 8 - <12, Reactive: >= 12 mIU/mL 04/03/2025 8:47 AM EDT [facility] Comment: Nonreactive. Individual is considered not immune to HBV infection. Blood Venous blood specimen / Unknown Venipuncture / Unknown 04/03/2025 6:38 AM EDT 04/03/2025 7:02 AM EDT us Asael Esteves MD LAB BLOOD ORDERABLES Final Resul t Performing Organization Address [facility] Co de Phone Number [facility] [address] [place] [address] * Hepatitis B Surface Antigen (04/03/2025 6:38 AM EDT) Hepatitis B Surf Antigen Negative Negative 04/03/2025 8:47 AM EDT [facility] Blood Venous blood specimen / Unknown Venipuncture / Unknown 04/03/2025 6:38 AM EDT 04/03/2025 7:02 AM EDT us Asael Esteves MD LAB BLOOD ORDERABLES Final Resul t Performing Organization Address City/[facility]/ZIP Co de Phone Number [facility] [address] [place] [address] * Hepatitis C Antibody (04/03/2025 6:38 AM EDT) Hepatitis C Antibody Negative Negative 04/03/2025 7:44 AM EDT [facility] Blood Venous blood specimen / Unknown Venipuncture / Unknown 04/03/2025 6:38 AM EDT 04/03/2025 7:02 AM EDT us Asael Esteves MD LAB BLOOD ORDERABLES Final Resul t [facility] [address] [place] [address] * (ABNORMAL) Nicotine Cotinine Metabolite (04/03/2025 6:38 AM EDT) NICOTINE <5 <5 ng/mL 04/04/2025 9:5 4 AM EDT [facility] Cotinine 32(H) <5 ng/mL 04/04/2025 9:5 4 AM EDT [facility] Blood Venous blood specimen / Unknown Venipuncture / Unknown 04/03/2025 6:38 AM EDT 04/03/2025 7:02 AM EDT Narrative [facility] - 04/04/2025 9:54 AM EDT Testing performed by LC-MS/MS at the [facility] Special Chemistry/Toxicology Laboratory. This test was developed and its performance characteristics determined by [facility]. This assay has not been cleared by the FDA. The laboratory is regulated under CLIA as qualified to perform high-complexity testing. This test is used for clinical purposes. us Asael Esteves MD LAB BLOOD ORDERABLES Final Resul t [facility] [address] [place] [address] * (ABNORMAL) Protime-INR (04/03/2025 6:38 AM EDT) Prothrombin Time 16.3(H) 12.0 - 14.3 sec LAB COAGULATION METHOD 04/03/2025 7:24 AM EDT [facility] INR 1.3(H) 0.9 - 1.1 LAB COAGULATION METHOD 04/03/2025 7:24 AM EDT [facility] Blood Venous blood specimen / Unknown Venipuncture / Unknown 04/03/2025 6:38 AM EDT 04/03/2025 7:02 AM EDT Narrative [facility] - 04/03/2025 7:24 AM EDT OPTIMAL INR RANGES FOR PATIENT ON ORAL ANTICOAGULANT THERAPY Prevention of venous thromboembolism INR 2.0 to 3.0 In patients with heart disease: Atrial fibrillation INR 2.0 to 3.0 Valvular heart disease INR 2.0 to 3.0 Tissue heart valves INR 2.0 to 3.0 Mechanical prosthetic valves INR 2.5 to 3.5 Prevention of recurrent OR INR 2.5 to 3.5 us Asael Esteves MD LAB BLOOD ORDERABLES Final Resul t [facility] [address] [place] [address] * (ABNORMAL) Comprehensive metabolic panel (04/03/2025 6:38 AM EDT) Glucose, Plasma 164(H) 74 - 99 mg/dL 04/03/2025 7:31 AM EDT [facility] BUN, Plasma 19 7 - 21 mg/dL 04/03/2025 7:31 AM EDT [facility] Creatinine, Plasma 0.98 0.60 - 1.10 mg/dL 04/03/2025 7:31 AM EDT [facility] BUN/Creatinine Ratio 19 04/03/2025 7:31 AM EDT [facility] Sodium, Plasma 133(L) 136 - 145 mmol/L 04/03/2025 7:31 AM EDT [facility] Potassium, Plasma 4.9 3.6 - 4.9 mmol/L 04/03/2025 7:31 AM EDT [facility] Chloride, Plasma 100 97 - 107 mmol/L 04/03/2025 7:31 AM EDT [facility] CO2, Plasma 23 22 - 29 mmol/L 04/03/2025 7:31 AM EDT [facility] Anion Gap 10 6 - 16 mmol/L 04/03/2025 7:31 AM EDT [facility] Total Calcium, Plasma 9.5 8.9 - 10.2 mg/dL 04/03/2025 7:31 AM EDT [facility] Total Protein 7.0 6.3 - 7.9 g/dL 04/03/2025 7:31 AM EDT [facility] Albumin, Plasma 3.4(L) 3.5 - 5.2 g/dL 04/03/2025 7:31 AM EDT [facility] AST, Plasma 74(H) 10 - 35 U/L 04/03/2025 7:31 AM EDT [facility] ALT, Plasma 54(H) 10 - 35 U/L 04/03/2025 7:31 AM EDT [facility] Alkaline Phosphatase, Plasma 264(H) 35 - 104 U/L 04/03/2025 7:31 AM EDT [facility] Total Bilirubin, Plasma 2.0(H) 0.2 - 1.1 mg/dL 04/03/2025 7:31 AM EDT [facility] eGFRcr 68.3 mL/min/1.7 3m*2 04/03/2025 7:31 AM EDT [facility] Comment:Reported eGFRcr in m L/min/1.73m2 is based the CKD-EPI 2020 equation that does not use a race coefficient. Blood Venous blood specimen / Unknown Venipuncture / Unknown 04/03/2025 6:38 AM EDT 04/03/2025 7:01 AM EDT us Asael Esteves MD LAB BLOOD ORDERABLES Final Resul t [facility] [address] [place] [address] * (ABNORMAL) Hemogram (CBC) (04/03/2025 6:38 AM EDT) WBC Count 9.16 3.70 - 10.30 10*3/uL LAB HEMATOLOGY METHOD 04/03/2025 8:35 AM EDT [facility] RBC Count 4.07 3.90 - 5.20 10*6/uL LAB HEMATOLOGY METHOD 04/03/2025 8:35 AM EDT [facility] HGB 13.6 11.2 - 15.7 g/dL LAB HEMATOLOGY METHOD 04/03/2025 8:35 AM EDT [facility] HCT 41.4 34.0 - 45.0 % LAB HEMATOLOGY METHOD 04/03/2025 8:35 AM EDT [facility] Platelet Count 87(L) 155 - 369 10*3/uL LAB HEMATOLOGY METHOD 04/03/2025 8:35 AM EDT [facility] MCV 102(H) 79 - 98 fL LAB HEMATOLOGY METHOD 04/03/2025 8:35 AM EDT [facility] MCH 33.4(H) 26.0 - 32.0 pg LAB HEMATOLOGY METHOD 04/03/2025 8:35 AM EDT [facility] MCHC 32.9 30.7 - 35.5 g/dL LAB HEMATOLOGY METHOD 04/03/2025 8:35 AM EDT [facility] RDW 15.0(H) 11.5 - 14.5 % LAB HEMATOLOGY METHOD 04/03/2025 8:35 AM EDT [facility] MPV 9.7 8.8 - 12.5 fL LAB HEMATOLOGY METHOD 04/03/2025 8:35 AM EDT [facility] nRBC 0.0 <=0.0 per 100 WBCs LAB HEMATOLOGY METHOD 04/03/2025 8:35 AM EDT [facility] Blood Venous blood specimen / Unknown Venipuncture / Unknown 04/03/2025 6:38 AM EDT 04/03/2025 7:02 AM EDT Asael Esteves MD LAB BLOOD ORDERABLES Final Resul t Performing Organization Address City/[facility]/ZIP Co de Phone Number [facility] [address] [place] [address] * Alpha fetoprotein, serum (04/03/2025 6:38 AM EDT) Alpha Fetoprotein, Serum 6.5 <10.0 ng/mL 04/03/2025 7:38 AM EDT [facility] Blood Venous blood specimen / Unknown Venipuncture / Unknown 04/03/2025 6:38 AM EDT 04/03/2025 7:02 AM EDT Narrative [facility] - 04/03/2025 7:38 AM EDT Performed by [employer] electrochemiluminescent immunoassay which is traceable to the 1st AFP IRP WHO Reference standard 72/255. Results obtained with different test methods or kits cannot be used interchangeably. Asael Esteves MD LAB BLOOD ORDERABLES Final Resul t Performing Organization Address City/[facility]/ZIP Co de Phone Number [facility] [address] [place] [address] * ABO/Rh (04/03/2025 6:38 AM EDT) ABO/Rh A Positive 04/03/2025 8:00 AM EDT BLOOD BANK Blood Venous blood specimen / Unknown Venipuncture / Unknown 04/03/2025 6:38 AM EDT 04/03/2025 8:00 AM EDT us Asael Esteves MD LAB BLOOD BANK TEST ORDERABLES F inal Result BLOOD BANK [address] [place] [address], documented in this encounter Visit Diagnoses Diagnosis [...] documented as of this encounter Care Teams Vice President Consulting Services Relationship Specialty Start Date End Date Trevor Rolon DO [address] [facility] [address] [place] [address] PCP - General 11/22/20 Mc Grant DO [address] [facility] [address] [place] [address] Referring Physician Gastroenterology 02/21/24 El Agarwal APRN [address] [place] [address] Referring Physician Gastroenterology 03/21/25 documented as of this encounter
--- OUTSIDE RECORDS SUMMARY | 2025-05-04 09:08 | XMS_ITS | Encounter Summary ---
Author Organization [facility] Address [address] [place] [address] Care Team Providers Care Senior Sales Compensation Analyst Name Role Phone Trevor Rolon DO Primary Care Provider [phone] Mc Grant DO Unavailable [phone] El Agarwal DRY TRANSFER WORKER Unavailable [phone] Reason for Referral * Transplant (Routine) - Authorized Specialty Diagnoses / Procedures Referred By Truong bella Referred To Contact Transplant Surgery / Transplant Diagnoses Cirrhosis of liver without ascites, unspecified hepatic cirrhosis type El Agarwal APRN [address] [place] [address] Phone: tel: fax: Referral ID Status Reason Start Date Expiration Date Visits Requested Visits Authorized [id number] Authorized Specialty Services Required 03/21/2025 09/20/[phone] Encounter Details Date Type Department Care Team (Late st Contact Info) Description 03/21/2025 Community [facility] Community Practice [address] [place] [address] El Agarwal DRY TRANSFER WORKER [address] [place] [phone] Cirrhosis of liver without ascites, unspecified hepatic [...] Info) Description 05/14/2025 2:00 PM EST Appointment [facility] [address] [place] [address] 05/18/2025 9:15 AM EST Clinical Support [facility] Transplant [place] [address] [address] 05/18/2025 9:30 AM EST Clinical Support [facility] [place] [address] [address] CH - CLINICAL NUTRITION [address] [place], [place] [phone] 05/18/2025 10:50 AM EST Office Visit [facility] [place] [address] [place] [address] Nj Johns MD [address] [place] [address] 05/18/2025 11:30 AM EST Social Work [facility] [place] [address] [place] [address] Thuy Dasilva, [place] [address] 05/18/2025 1:00 PM EST Appointment [facility] Radiology [address] [place] [address] 05/18/2025 1:30 PM EST Appointment [facility]iology [address], 1st [place] [address] 05/18/2025 1:30 PM EST Appointment [facility] Radiology [address], 1st [place] [address] 05/18/2025 2:00 PM EST Pharmacist Visit [facility] [address] [place] [address] 05/22/2025 11:15 AM EST Consult [facility] [address], 1st [place] [address] Nigel Recinos MD [address] [place] [address] 05/25/2025 11:30 AM EST Appointment [facility] [address] [place] [address] 05/25/2025 2:00 PM EST Appointment [facility] Pulmonary Function Testing [address] [place] [address] 05/25/2025 3:30 PM EST Appointment Cardiac Imaging [address] [place] [address] 05/31/2025 4:30 PM EST Appointment [facility] Amande[address] Building [address] [place] [address] 06/01/2025 11:00 AM EST Office Visit [facility] [place] [address] [facility], [address] [place] [address] Juana Gale, DRY TRANSFER WORKER [address] [place] [address] 06/20/2025 10:30 AM EST Procedure Visit [place] [facility] [address], 1st [place] [address] Claire Davidson MD [address] [place] [address] 06/21/2025 2:00 PM EST Office Visit [facility] [address] [facility], [address] [place] [address] Claire Davidson MD [address] [facility] [address] [place] [address] Scheduled Referrals Name Type Priority [...] as of this encounter Care Teams Senior Sales Compensation Analyst Relationship Specialty Start Date End Date Trevor Rolon DO [address] [place] [address] PCP - General 11/22/20 Mc Grant DO [address] [facility] [address] [place] [address] Referring Physician Gastroenterology 02/21/24 El Agarwal APRN [address] [place] [address] Referring Physician Gastroenterology 03/21/25 documented as of this encounter
--- OUTSIDE RECORDS SUMMARY | 2025-05-04 09:08 | XMS_ITS | Encounter Summary ---
Author Organization [facility] Address [address] [place] [address] Care Team Providers Care Lead Programmer Name Role Phone Trevor Rolon DO Primary Care Provider Mc Grant DO Unavailable [phone] El Agarwal GARAGE DOOR TECHNICIAN Unavailable [phone] Encounter Details Date Type Department Care Team (Late Contact Info) Description 09/08/2024 Orders Only External Location [address] [place] [address] Provider, External Social History Tobacco Use Types [...] Description 05/14/2025 2:00 PM EST Appointment [facility] MRI [address] [place] [address] 05/18/2025 9:15 AM EST Clinical Support [facility] [address] [place] [address] 05/18/2025 9:30 AM EST Clinical Support [facility] [address] [place] [address] CH - CLINICAL NUTRITION [address] [place], [place] [phone] 05/18/2025 10:50 AM EST Office Visit [facility] [address] [place] [address] Nj Johns MD [address] [facility] [address] [place] [address] 05/18/2025 11:30 AM EST Social Work [facility] [address] [place] [address] Thuy Dasilva, [place] [address] 05/18/2025 1:00 PM EST Appointment [facility] Radiology [address] [place] [address] 05/18/2025 1:30 PM EST Appointment [facility] Radiology [address], 1st [place] [address] 05/18/2025 1:30 PM EST Appointment [facility] [address], 1st [place] [address] 05/18/2025 2:00 PM EST Pharmacist Visit [facility] Trans[facility] Center [address] [place] [address] 05/22/2025 11:15 AM EST Consult [facility] [address], 1st [place] [address] Nigel Recinos MD [address] [place] [address] 05/25/2025 11:30 AM EST Appointment [facility] [address] [place] [address] 05/25/2025 2:00 PM EST Appointment [facility] Pulmonary Function Testing [address] [place] [address] 05/25/2025 3:30 PM EST Appointment Cardiac Imaging [address] [place] [address] 05/31/2025 4:30 PM EST Appointment [facility] [address] [place] [address] 06/01/2025 11:00 AM EST Office Visit [facility] [place] [address] [facility], [address] [place] [address] Juana Gale, CYDNEY [address] [place] [address] 06/20/2025 10:30 AM EST Procedure Visit [place] [facility] [address], 1st [place] [address] Claire Davidson MD [address] [facility]01 [place] [address] 06/21/2025 2:00 PM EST Office Visit [facility] [address], [address] [place] [address] Claire Davidson MD [address] [place] [address] documented as of this encounter Procedures Procedure Name Priority Date/Time Associated Diagnosis Comments XR MSK OUTSIDE IMAGES 09/08/2024 6:16 PM EST documented in this encounter Results * XR MSK OUTSIDE IMAGES (09/08/2024 6:16 PM EST) Anatomical Region Laterality Modality Radiographic Zayda ging 09/08/2024 6:16 PM EST External Provider IMG XR PROCEDURES Final Result [...] as of this encounter Care Teams Lead Programmer Relationship Specialty Start Date End Date Trevor Rolon DO [address] [address] PCP - General 11/22/20 Mc Grant DO [address] [address] Referring Physician Gastroenterology 02/21/24 El Agarwal APRN [address] [place] [address] Referring Physician Gastroenterology 03/21/25 documented as of this encounter
--- OUTSIDE RECORDS SUMMARY | 2025-05-04 09:08 | XMS_ITS | Encounter Summary ---
Author Organization [facility] Address [address] [place] [address] Care Team Providers Care Fbi Investigator Name Role Phone Trevor Rolon DO Primary Care Provider [phone] Mc Grant DO Unavailable [phone] El Agarwal LINK TRAINER TEACHER Unavailable [phone] Reason for Referral * Consultation (Routine) - Authorized Specialty Diagnoses / Procedures Referred By Truong bella Referred To Contact Cardiology Diagnoses HTN, goal to be determined Laquita Corral PA [address] [place] [address] Phone: tel: fax: Referral ID Status Reason Start Date Expiration Date Visits Requested Visits Authorized [id number] Authorized Specialty Services Required 03/04/2025 09/03/2026 1 1 * Consultation (Routine) - Closed Specialty Diagnoses / Procedures Referred By Truong bella Referred To Contact Neurology Diagnoses Neuropathic pain, leg, bilateral Laquita Corral PA [address] [place] [address] Phone: tel: fax: Referral ID Status Reason Start Date Expiration Date V isits Requested Visits Authorized [id number] Closed Specialty Services Required 03/04/2025 09/03/2026 1 1 Encounter Details Date Type Department Care Team (Late st Contact Info) Description 03/04/2025 Community [facility] Community Practice [address] [place] [address] Laquita Corral PA [address] [place] [address] Neuropathic pain, leg, bilateral (Primary Dx); HTN, [...] Info) Description 05/14/2025 2:00 PM EST Appointment [facility] [address] [place] [address] 05/18/2025 9:15 AM EST Clinical Support [facility] [address] [place] [address] 05/18/2025 9:30 AM EST Clinical Support [facility] [place] [address] [place] [address] CH - CLINICAL NUTRITION [address] [place] [address] 05/18/2025 10:50 AM EST Office Visit [facility] [place] [address] [place] [address] Nj Johns MD [address] [place] [address] 05/18/2025 11:30 AM EST Social Work [facility] [address] [place] [address] Thuy Dasilva, [place] [id number] 05/18/2025 1:00 PM EST Appointment [facility] [address] [place] [address] 05/18/2025 1:30 PM EST Appointment [facility] [address], 1st Floor [address] [place] [address] 05/18/2025 1:30 PM EST Appointment [facility] [address], 1st Floor [place] [address] 05/18/2025 2:00 PM EST Pharmacist Visit [facility] [address] [place] [address] 05/22/2025 11:15 AM EST Consult [facility] [address], 1st [place] [address] Nigel Recinos MD [address] [place] [address] 05/25/2025 11:30 AM EST Appointment [facility] [address] [place] [id number] 05/25/2025 2:00 PM EST Appointment [facility] Pulmonary Function Testing [address] [place] [address] 05/25/2025 3:30 PM EST Appointment Cardiac Imaging [address] [place] [id number] 05/31/2025 4:30 PM EST Appointment [facility] Amandeep Valdes Building [address] [place] [address] 06/01/2025 11:00 AM EST Office Visit [facility] [place] [address] [facility] [place] [address] Juana Gale, LINK TRAINER TEACHER [address] [place] [address] 06/20/2025 10:30 AM EST Procedure Visit [facility] [address], 1st [place] [address] Claire Davidson MD [address] [facility]01 [place] [address] 06/21/2025 2:00 PM EST Office Visit [facility] [address] [facility], [address] [place] [address] Claire Davidson MD [address] [facility]01 [place] [address] Scheduled Referrals Name Type Priority [...] documented as of this encounter Care Teams Fbi Investigator Relationship Specialty Start Date End Date Trevor Rolon DO [address] [facility] [address] [place] [address] PCP - General 11/22/20 Mc Grant DO [address] [facility] [address] [place] [address] Referring Physician Gastroenterology 02/21/24 El Agarwal APRN [address] [place] [address] Referring Physician Gastroenterology 03/21/25 documented as of this encounter
--- OUTSIDE RECORDS SUMMARY | 2025-05-04 09:08 | XMS_ITS | Encounter Summary ---
Author Organization [facility] Address [address] [place] [address] Care Team Providers Care Tank House Supervisor Name Role Phone Trevor Rolon DO Primary Care Provider [phone] Mc Grant DO Unavailable [phone] El Agarwal BILLING CHECKER Unavailable [phone] Reason for Visit * Reason Comments Referral - Liver Txp Encounter Details Date Type Department Care Team (Late st Contact Info) Description 03/21/2025 Telephone [facility] [address] [place] [address] Sharri Almonte [place] [phone] Referral - Liver Txp Social History Tobacco [...] Info) Description 05/14/2025 2:00 PM EST Appointment [facility] [address] [place] [address] 05/18/2025 9:15 AM EST Clinical Support [facility] [address] [facility] [address] [place] [address] 05/18/2025 9:30 AM EST Clinical Support [facility] [address] [facility] [address] [place] [address] CH - CLINICAL NUTRITION [address] [place] [address] 05/18/2025 10:50 AM EST Office Visit [facility] [address] [place] [address] Nj Johns MD [address] [facility] [address] [place] [address] 05/18/2025 11:30 AM EST Social Work [facility] [address] [facility] [address] [place] [address] Thuy Dasilva, [place] [address] 05/18/2025 1:00 PM EST Appointment [facility] [address] [place] [address] 05/18/2025 1:30 PM EST Appointment [facility] [address], 1st [place] [address] 05/18/2025 1:30 PM EST Appointment [facility] [address], 1st [place] [address] 05/18/2025 2:00 PM EST Pharmacist Visit [facility] [address] [place] [address] 05/22/2025 11:15 AM EST Consult [facility] [address], 1st [place] [address] Nigel Recinos MD [address] [place] [address] 05/25/2025 11:30 AM EST Appointment [facility] [address] [place] [address] 05/25/2025 2:00 PM EST Appointment [facility] Pulmonary Function Testing [address] [place] [address] 05/25/2025 3:30 PM EST Appointment Cardiac Imaging [address] [place] [address] 05/31/2025 4:30 PM EST Appointment [facility] [address] [place] [address] 06/01/2025 11:00 AM EST Office Visit [facility] [place] [address] [facility], [address] [place] [address] Juana Gale, BILLING CHECKER [address] [place] [address] 06/20/2025 10:30 AM EST Procedure Visit [facility] [address], 1st [place] [address] Claire Davidson MD [address] [place] [address] 06/21/2025 2:00 PM EST Office Visit [facility] [address] [facility], [address] [place] [address] Claire Davidson MD [address] [place] [address] documented as of this encounter [...] Blood Venous blood specimen / Unknown 02/27/2025 Historical Provider LAB BLOOD ORDERABLES Final R esult * Albumin, Plasma (02/26/2025) External Albumin 3.1 g/dL Blood Venous blood specimen / Unknown 02/26/2025 Historical Provider LAB BLOOD ORDERABLES Final R esult * Total Bilirubin, Plasma (02/26/2025) External Bilirubin Total 2.5 mg/dL Blood Venous blood specimen / Unknown 02/26/2025 [facility] Provider LAB BLOOD ORDERABLES Final R esult * Creatinine, Plasma (02/26/2025) External Creatinine Blood 0.7 mg/dL Blood Venous blood specimen / Unknown 02/26/2025 [facility] Provider LAB BLOOD ORDERABLES Final R esult * Sodium, Plasma (02/26/2025) External Sodium 133 mmol/L Blood Venous blood specimen / Unknown 02/26/2025 [facility] Provider LAB BLOOD ORDERABLES Final [...] as of this encounter Care Teams Tank House Supervisor Relationship Specialty Start Date End Date Trevor Rolon DO [address] [address] PCP - General 11/22/20 Mc Grant DO [address] [address] Referring Physician Gastroenterology 02/21/24 El Agarwal APRN [address] [place] [address] Referring Physician Gastroenterology 03/21/25 documented as of this encounter
--- OUTSIDE RECORDS SUMMARY | 2025-05-04 09:08 | XMS_ITS | Encounter Summary ---
Author Organization [facility] Address [address] [place] [address] Care Team Providers Care Dinkey Operator Slate Name Role Phone Trevor Rolon DO Primary Care Provider [phone] Mc Grant DO Unavailable [phone] Encounter Details Date Type Department Care Team [...] Description 05/14/2025 2:00 PM EST Appointment [facility] MRI [address] [facility] [address] 05/18/2025 9:15 AM EST Clinical Support [facility] [address] [facility] [address] [place] [address] 05/18/2025 9:30 AM EST Clinical Support [facility] [address] [facility] [address] [place] [address] CH - CLINICAL NUTRITION [address] [place] [address] 05/18/2025 10:50 AM EST Office Visit [facility] [address] [facility] [address] [place] [address] Nj Johns MD [address] [facility] [address] [place] [address] 05/18/2025 11:30 AM EST Social Work [facility] [address] [facility] [address] [place] [address] Thuy Dasilva, [place] [address] 05/18/2025 1:00 PM EST Appointment [facility] [address] [place] [address] 05/18/2025 1:30 PM EST Appointment [facility] [address], 1st [place] [address] 05/18/2025 1:30 PM EST Appointment [facility] [address], 1st Floor Wing [place] [facility] [place] [address] 05/18/2025 2:00 PM EST Pharmacist Visit [facility] [address] [place] [address] 05/22/2025 11:15 AM EST Consult [facility] [address], 1st [place] [address] Nigel Recinos MD [address] [place] [address] 05/25/2025 11:30 AM EST Appointment [facility] [address] [place] [address] 05/25/2025 2:00 PM EST Appointment [facility] Pulmonary Function Testing [address] [place] [address] 05/25/2025 3:30 PM EST Appointment Cardiac Imaging [address] [place] [address] 05/31/2025 4:30 PM EST Appointment [facility] [address] [place] [address] 06/01/2025 11:00 AM EST Office Visit [facility] [place] [address] [facility], [address] [place] [address] Juana Gale APRN 800 [place] [address] 06/20/2025 10:30 AM EST Procedure Visit [facility] [address], [facility] [place] [address] Claire Davidson MD [address] [place] [address] 06/21/2025 2:00 PM EST Office Visit [facility] [address] [facility], [address] [place] [address] Claire Davidson MD [address] [facility] [address] [place] [address] documented as of this encounter [...] documented as of this encounter Care Teams Dinkey Operator Slate Relationship Specialty Start Date End Date Trevor Rolon DO [address] [facility] 201 [place] [address] PCP - General 11/22/20 Mc Grant DO [address] [facility] 201 [place] [address] Referring Physician Gastroenterology 02/21/24 documented as of this encounter
--- OUTSIDE RECORDS SUMMARY | 2025-05-04 09:09 | XMS_ITS | Encounter Summary ---
Author Organization [facility] Address [address] [place] [address] Care Team Providers Care Cable Installation Technician Name Role Phone Trevor Rolon DO Primary Care Provider [phone] Mc Grant DO Unavailable [phone] El Agarwal HEALTHCARE FACILITY ADMINISTRATOR Unavailable [phone] Encounter Details Date Type Department Care Team (Late Contact Info) Description 02/20/2025 Orders Only External Location [address] [place] [address] Provider, External Social History Tobacco Use Types [...] Description 05/14/2025 2:00 PM EST Appointment [facility] MRI [address] [place] [id number] 05/18/2025 9:15 AM EST Clinical Support [facility] [address] [place] [address] 05/18/2025 9:30 AM EST Clinical Support [facility] [address] [place] [address] CH - CLINICAL NUTRITION [address] [place] [address] 05/18/2025 10:50 AM EST Office Visit [facility] [address] [place] [address] Nj Johns MD [address] [facility] D[address] [place] [address] 05/18/2025 11:30 AM EST Social Work [facility] [address] [place] [address] Thuy Dasilva, [place] [address] 05/18/2025 1:00 PM EST Appointment [facility] Radiology [address] [place] [address] 05/18/2025 1:30 PM EST Appointment [facility] [address], 1st [place] [address] 05/18/2025 1:30 PM EST Appointment [facility] [address], 1st [place] [address] 05/18/2025 2:00 PM EST Pharmacist Visit [facility] [address] [address] 05/22/2025 11:15 AM EST Consult [place] [facility] [address], 1st [place] [address] Nigel Recinos MD [address] Emani01 [place] [address] 05/25/2025 11:30 AM EST Appointment [facility] [address] [place] [address] 05/25/2025 2:00 PM EST Appointment [facility] Pulmonary Function Testing [address] [place] [address] 05/25/2025 3:30 PM EST Appointment Cardiac Imaging [address] [place] [address] 05/31/2025 4:30 PM EST Appointment [facility] Breast [facility] [address] Building 800 [place] [address] 06/01/2025 11:00 AM EST Office Visit [facility] [place] [address] [facility], [address] [place] [address] Juana Gale APRN [address] [place] [address] 06/20/2025 10:30 AM EST Procedure Visit [facility] [address], 1st [place] [address] Claire Davidson MD [address] Joaquin01 [place] [address] 06/21/2025 2:00 PM EST Office Visit [facility] [address] [facility], [address] [place] [address] Claire Davidson MD [address] Gabriel [address] [place] [address] documented as of this [...] documented as of this encounter Care Teams Cable Installation Technician Relationship Specialty Start Date End Date Trevor Rolon DO [address] [address] PCP - General 11/22/20 Mc Grant DO [address] [address] Referring Physician Gastroenterology 02/21/24 El Agarwal APRN [address] [place] [address] Referring Physician Gastroenterology 03/21/25 documented as of this encounter
--- OUTSIDE RECORDS SUMMARY | 2025-05-04 09:09 | XMS_ITS | Encounter Summary ---
Author Organization [facility] Address [address] [place] [address] Care Team Providers Care Project Engineer Name Role Phone Trevor Rolon DO Primary Care Provider [phone] Mc Grant DO Unavailable [phone] El Agarwal PLUMBING SERVICE TECHNICIAN Unavailable [phone] Encounter Details Date Type Department Care Team (Late Contact Info) Description 02/12/2025 Orders Only External Location [address] [place] [address] Provider, External Social History Tobacco Use Types [...] Description 05/14/2025 2:00 PM EST Appointment [facility] MRI [address] [place] [id number] 05/18/2025 9:15 AM EST Clinical Support [facility] [address] [place] [place] [address] 05/18/2025 9:30 AM EST Clinical Support [facility] [address] [place] [address] CH - CLINICAL NUTRITION [address] [place] [address] 05/18/2025 10:50 AM EST Office Visit [facility] [address] [place] [address] Nj Johns MD [address] [facility] [address] [place] [address] 05/18/2025 11:30 AM EST Social Work [facility] [address] [place] [address] Thuy Dasilva, [place] [address] 05/18/2025 1:00 PM EST Appointment [facility] Radiology [address] [place] [address] 05/18/2025 1:30 PM EST Appointment [facility] Radiology [address], 1st [place] [address] 05/18/2025 1:30 PM EST Appointment [facility] Radiology [address], 1st [place] [address] 05/18/2025 2:00 PM EST Pharmacist Visit [facility] Trans[facility] [address] [place] [address] 05/22/2025 11:15 AM EST Consult [place] [facility] [address], 1st [place] [address] Nigel Recinos MD [address]man[address] [place] [address] 05/25/2025 11:30 AM EST Appointment [facility] [address] [place] [address] 05/25/2025 2:00 PM EST Appointment [facility] Pulmonary Function Testing 800 [place] [address] 05/25/2025 3:30 PM EST Appointment Cardiac Imaging [address] [place] [address] 05/31/2025 4:30 PM EST Appointment [facility] [address] Building 800 [place] [address] 06/01/2025 11:00 AM EST Office Visit [facility] [place] [address] [facility], [address] [place] [address] Juana Gale APRN [address] [place] [address] 06/20/2025 10:30 AM EST Procedure Visit [facility] [address], 1st [place] [address] Claire Davidson MD [address]quin01 [place] [address] 06/21/2025 2:00 PM EST Office Visit [facility] [address] [facility], [address] [place] [address] Claire Davidson MD [address] Gabriel [address] [place] [address] documented as of this encounter [...] documented as of this encounter Care Teams Project Engineer Relationship Specialty Start Date End Date Trevor Rolon DO [address] [facility] 201 [place] [address] PCP - General 11/22/20 Mc Grant DO [address] [facility] 201 [place] [address] Referring Physician Gastroenterology 02/21/24 El Agarwal APRN [address] [place] [address] Referring Physician Gastroenterology 03/21/25 documented as of this encounter
--- OUTSIDE RECORDS SUMMARY | 2025-05-04 09:09 | XMS_ITS | Encounter Summary ---
Author Organization [facility] Address [address] [place] [address] Care Team Providers Care Cutter In Name Role Phone Trevor Rolon DO Primary Care Provider [phone] Mc Grant DO Unavailable [phone] El Agarwal MANAGER PROCESS EXCELLENCE Unavailable [phone] Encounter Details Date Type Department Care Team (Late Contact Info) Description 02/12/2025 Orders Only External Location [address] [place] [address] Provider, External Social History Tobacco Use Types [...] Description 05/14/2025 2:00 PM EST Appointment [facility] MRI [address] [place] [id number] 05/18/2025 9:15 AM EST Clinical Support [facility] [address] [place] [place] [address] 05/18/2025 9:30 AM EST Clinical Support [facility] [address] [place] [address] CH - CLINICAL NUTRITION [address] [place] [address] 05/18/2025 10:50 AM EST Office Visit [facility] [address] [place] [address] Nj Johns MD [address] [place] [address] 05/18/2025 11:30 AM EST Social Work [facility] [address] [address] Thuy Dasilva, [place] [address] 05/18/2025 1:00 PM EST Appointment [facility] Radiology [address] [place] [address] 05/18/2025 1:30 PM EST Appointment [facility] [address], 1st [place] [address] 05/18/2025 1:30 PM EST Appointment [facility] [address], 1st [place] [address] 05/18/2025 2:00 PM EST Pharmacist Visit [facility] [address] [place] [address] 05/22/2025 11:15 AM EST Consult [place] [facility] [address], 1st [place] [address] Nigel Recinos MD [address]man[address]01 [place] [address] 05/25/2025 11:30 AM EST Appointment [facility] [address] [place] [address] 05/25/2025 2:00 PM EST Appointment [facility] Pulmonary Function Testing [address] [place] [address] 05/25/2025 3:30 PM EST Appointment Cardiac Imaging [address] [place] [address] 05/31/2025 4:30 PM EST Appointment [facility] [address] 800 [place] [address] 06/01/2025 11:00 AM EST Office Visit [facility] [place] [address] [facility], [address] [place] [address] Juana Gale APRN 800 [place] [address] 06/20/2025 10:30 AM EST Procedure Visit [facility] [address], 1st [place] [address] Claire Davidson MD [address]01 [place] [address] 06/21/2025 2:00 PM EST Office Visit [facility] [address] [facility], [address] [place] [address] Claire Davidson MD [address] [place] [address] documented as of this encounter [...] documented as of this encounter Care Teams Cutter In Relationship Specialty Start Date End Date Trevor Rolon DO [address] [facility] 201 [place] [address] PCP - General 11/22/20 Mc Grant DO [address] [facility] 201 [place] [address] Referring Physician Gastroenterology 02/21/24 El Agarwal APRN [address] [place] [address] Referring Physician Gastroenterology 03/21/25 documented as of this encounter
--- OUTSIDE RECORDS SUMMARY | 2025-05-04 09:09 | XMS_ITS | Encounter Summary ---
Author Organization [facility] Address [address] [place] [address] Care Team Providers Care Adobe Developer Name Role Phone Trevor Rolon DO Primary Care Provider [phone] Mc Grant DO Unavailable [phone] El Agarwal FIRE CREW SPECIALIST Unavailable [phone] Encounter Details Date Type Department Care Team (Late st Contact Info) Description 02/28/2025 [facility] [address] [place] [address] Laquita Corral PA [address] [place] [address] Social History Tobacco Use Types Packs/Day Years [...] Description 05/14/2025 2:00 PM EST Appointment [facility] MRI [address] [place] [address] 05/18/2025 9:15 AM EST Clinical Support [facility] [address] [place] [address] 05/18/2025 9:30 AM EST Clinical Support [facility] [address] [place] [address] CH - CLINICAL NUTRITION [address] [place], [place] [address] 05/18/2025 10:50 AM EST Office Visit [facility] [place] [address] [place] [address] Nj Johns MD [address] [facility] [address] [place] [address] 05/18/2025 11:30 AM EST Social Work [facility] [address] [place] [address] Thuy Dasilva, [place] [address] 05/18/2025 1:00 PM EST Appointment [facility] [address] [place] [address] 05/18/2025 1:30 PM EST Appointment [facility] [address], 1st [place] [address] 05/18/2025 1:30 PM EST Appointment [facility] [address], 1st [place] [address] 05/18/2025 2:00 PM EST Pharmacist Visit [facility] [address] [facility] [address] [place] [address] 05/22/2025 11:15 AM EST Consult [facility] [address], 1st [place] [address] Nigel Recinos MD [address] [place] [address] 05/25/2025 11:30 AM EST Appointment [facility] [address] [place] [address] 05/25/2025 2:00 PM EST Appointment [facility] Pulmonary Function Testing [address] [place] [address] 05/25/2025 3:30 PM EST Appointment Cardiac Imaging [address] [place] [address] 05/31/2025 4:30 PM EST Appointment [facility] [address] [place] [address] 06/01/2025 11:00 AM EST Office Visit [facility] [place] [address] [facility], [address] [place] [address] Juana Gale APRN [address] [place] [address] 06/20/2025 10:30 AM EST Procedure Visit [facility] [address], 1st [place] [address] Claire Davidson MD [address] [place] [address] 06/21/2025 2:00 PM EST Office Visit [facility] [address] [facility], [address] [place] [address] Claire Davidson MD [address] [place] [address] documented as of this encounter Visit Diagnoses [...] documented as of this encounter Care Teams Adobe Developer Relationship Specialty Start Date End Date Trevor Rolon DO [address] [facility] Gabriel 201 [place] [address] PCP - General 11/22/20 Mc Grant DO [address] [facility] Gabriel 201 [place] [address] Referring Physician Gastroenterology 02/21/24 El Agarwal APRN [address] [place] [address] Referring Physician Gastroenterology 03/21/25 documented as of this encounter
--- OUTSIDE RECORDS SUMMARY | 2025-05-04 09:10 | XMS_ITS | Encounter Summary ---
Author Organization [facility] Address [address] [place] [address] Care Team Providers Care Pipe Finishing Supervisor Name Role Phone Trevor Rolon DO Primary Care Provider [phone] Mc Grant DO Unavailable [phone] El Agarwal RESOURCE MANAGER Unavailable [phone] Reason for Referral * Consultation (Routine) - Authorized Specialty Diagnoses / Procedures Referred By Truong bella Referred To Contact Gastroenterology Diagnoses GOOD (nonalcoholic steatohepatitis) Laquita Corral PA [address] [place] [address] Phone: tel: fax: Referral ID Status Reason Start Date Expiration Date Visits Requested Visits Authorized [id number] Authorized Specialty Services Required 01/27/2024 07/28/2025 1 1 Encounter Details Date Type Department Care Team (Late st Contact Info) Description 01/27/2024 [facility] Community Practice [address] [place] [address] Laquita Corral PA [address] [place] [address] GOOD (nonalcoholic steatohepatitis) (Primary Dx) [...] Info) Description 05/14/2025 2:00 PM EST Appointment [facility] [address] [place] [address] 05/18/2025 9:15 AM EST Clinical Support [facility] [address] [address] 05/18/2025 9:30 AM EST Clinical Support [facility] [address] [address] CH - CLINICAL NUTRITION 800 [place] [address] 05/18/2025 10:50 AM EST Office Visit [facility] [place] [address] [facility] [address] [place] [address] Nj Johns MD [address] [facility] [address] [place] [address] 05/18/2025 11:30 AM EST Social Work [facility] [address] [facility] [address] [place] [address] Thuy Dasilva, [place] [address] 05/18/2025 1:00 PM EST Appointment [facility] [address] [place] [address] 05/18/2025 1:30 PM EST Appointment [facility] [address], 1st [place] [address] 05/18/2025 1:30 PM EST Appointment [facility] [address], 1st [place] [address] 05/18/2025 2:00 PM EST Pharmacist Visit [facility] [address] [place] [address] 05/22/2025 11:15 AM EST Consult [facility] [address], 1st [place] [address] Nigel Recinos MD [address] [facility] [address] [place] [address] 05/25/2025 11:30 AM EST Appointment [facility] Radiology [address] [place] [address] 05/25/2025 2:00 PM EST Appointment [facility] H Pulmonary Function Testing [address] [place] [address] 05/25/2025 3:30 PM EST Appointment Cardiac Imaging [address] [place] [address] 05/31/2025 4:30 PM EST Appointment [facility] [address] [place] [address] 06/01/2025 11:00 AM EST Office Visit [facility] [place] [address] [facility], [address] [place] [address] Juana Gale APRN [address] [place] [address] 06/20/2025 10:30 AM EST Procedure Visit [facility] [address], 1st [place] [address] Claire Davidson MD [address] [place] [address] 06/21/2025 2:00 PM EST Office Visit [facility] [address] [facility], [address] [place] [address] Claire Davidson MD [address] [place] [address] Scheduled Referrals Name Type Priority [...] documented as of this encounter Care Teams Pipe Finishing Supervisor Relationship Specialty Start Date End Date Trevor Rolon DO [address] [address] PCP - General 11/22/20 Mc Grant DO [address] [address] Referring Physician Gastroenterology 02/21/24 lE Agarwal APRN [address] [place] [address] Referring Physician Gastroenterology 03/21/25 documented as of this encounter
--- OUTSIDE RECORDS SUMMARY | 2025-05-04 09:10 | XMS_ITS | Encounter Summary ---
Author Organization [facility] Address [address] [place] [address] Care Team Providers Care Wood Box Maker Name Role Phone Trevor Rolon DO Primary Care Provider [phone] Mc Grant DO Unavailable [phone] El Agarwal COMMUNITY ENGAGEMENT REPRESENTATIVE Unavailable [phone] Encounter Details Date Type Department Care Team (Late st Contact Info) Description 02/18/2024 [facility] Community Practice [address] [place] [address] Mc Grant DO [address] [place] [address] Encephalopathy, hepatic (CMS/HCC) (Primary Dx); [...] Info) Description 05/14/2025 2:00 PM EST Appointment [facility] [address] [place] [address] 05/18/2025 9:15 AM EST Clinical Support [facility] [address] [place] [address] 05/18/2025 9:30 AM EST Clinical Support [facility] [address] [place] [address] CH - CLINICAL NUTRITION [address] [place] [address] 05/18/2025 10:50 AM EST Office Visit [facility] [address] [place] [address] Nj Johns MD [address] [place] [address] 05/18/2025 11:30 AM EST Social Work [facility] [place] [address] [facility] [address] [place] [address] Thuy Dasilva, [place] [address] 05/18/2025 1:00 PM EST Appointment [facility] [address] [place] [address] 05/18/2025 1:30 PM EST Appointment [facility] [address], 1st [place] [address] 05/18/2025 1:30 PM EST Appointment [facility] [address], 1st [place] [address] 05/18/2025 2:00 PM EST Pharmacist Visit [facility] [address] [place] [address] 05/22/2025 11:15 AM EST Consult [facility] [address], 1st [place] [address] Nigel Recinos MD [address] [place] [address] 05/25/2025 11:30 AM EST Appointment [facility] [address] [place] [address] 05/25/2025 2:00 PM EST Appointment [facility] Pulmonary Function Testing [address] [place] [address] 05/25/2025 3:30 PM EST Appointment Cardiac Imaging [address] [place] [address] 05/31/2025 4:30 PM EST Appointment [facility] [address] [place] [address] 06/01/2025 11:00 AM EST Office Visit [facility] [place] [address] [facility], [address] [place] [address] Juana Gale, COMMUNITY ENGAGEMENT REPRESENTATIVE [address] [place] [address] 06/20/2025 10:30 AM EST Procedure [facility] [address], 1st [place] [address] Claire Davidson MD [address] [facility] [address] [place] [address] 06/21/2025 2:00 PM EST Office Visit [facility] [address] [place] [address] Claire Davidson MD [address] [facility] [address] [place] [address] documented as of this encounter [...] documented as of this encounter Care Teams Wood Box Maker Relationship Specialty Start Date End Date Trevor Rolon DO [address] [facility] 201 [place] [address] PCP - General 11/22/20 Mc Grant DO [address] [facility] 201 [place] [address] Referring Physician Gastroenterology 02/21/24 El Agarwal APRN [address] [place] [address] Referring Physician Gastroenterology 03/21/25 documented as of this encounter
--- OUTSIDE RECORDS SUMMARY | 2025-05-04 09:10 | XMS_ITS | Encounter Summary ---
Author Organization [facility] Address [address] [place] [address] Care Team Providers Care Senior Net Engineer Name Role Phone Trevor Rolon DO Primary Care Provider [phone] Mc Grant DO Unavailable [phone] El Agarwal ELIGIBILITY ANALYST Unavailable [phone] Reason for Referral * Consultation (Routine) - Authorized Specialty Diagnoses / Procedures Referred By Truong bella Referred To Contact Hematology / Blood and Marrow Transplant Diagnoses Thrombocytopenia (CMS/HCC) Laquita Corral PA [address] [place] [address] Phone: tel: fax: Igor Harris MD 800 [facility] [address] [place] [address] Phone: tel: fax: Referral ID Status Reason Start Date Expiration Date Visits Requested Visits Authorized [id number] Authorized Specialty Services Required 03/28/2025 09/27/2026 1 1 Encounter Details Date Type Department Care Team (Latest Contact Info) Description 03/28/2025 Community [facility] Community Practice [address] [place] [address] Laquita Corral PA [address] [place] [address] Thrombocytopenia ([facility]) (Primary Dx) Social History Tobacco Use Types [...] Info) Description 05/14/2025 2:00 PM EST Appointment [facility] [address] [place] [address] 05/18/2025 9:15 AM EST Clinical Support [facility] [address] [place] [address] 05/18/2025 9:30 AM EST Clinical Support [facility] [address] [place] [address] CH - CLINICAL NUTRITION 800 [place] [address] 05/18/2025 10:50 AM EST Office Visit [facility] [address] [place] [address] Nj Johns MD [address] [place] [address] 05/18/2025 11:30 AM EST Social Work [facility] [address] [place] [address] Thuy Dasilva, [place] [address] 05/18/2025 1:00 PM EST Appointment [facility] [address] [place] [address] 05/18/2025 1:30 PM EST Appointment [facility] [address], 1st [place] [address] 05/18/2025 1:30 PM EST Appointment [facility] [address], 1st [place] [address] 05/18/2025 2:00 PM EST Pharmacist Visit [facility] [address] [place] [address] 05/22/2025 11:15 AM EST Consult [facility] [address], 1st [place] [address] Nigel Recinos MD [address] [facility] [address] [place] [address] 05/25/2025 11:30 AM EST Appointment [facility] [address] [place] [address] 05/25/2025 2:00 PM EST Appointment [facility] Pulmonary Function Testing [address] [place] [address] 05/25/2025 3:30 PM EST Appointment Cardiac Imaging [address] [place] [address] 05/31/2025 4:30 PM EST Appointment [facility] [address] 800 [place] [address] 06/01/2025 11:00 AM EST Office Visit [facility] [place] [address] [address] [facility], [address] [place] [address] MckeeJuana yap, ELIGIBILITY ANALYST [address] [place] [address] 06/20/2025 10:30 AM EST Procedure Visit [place] [facility] [address], 1st [place] [address] Claire Davidson MD [address] [place] [address] 06/21/2025 2:00 PM EST Office Visit [facility] [address], [address] [place] [address] Claire Davidson MD [address] [facility]01 [place] [address] Scheduled Referrals Name Type Priority [...] as of this encounter Care Teams Senior Net Engineer Relationship Specialty Start Date End Date Trevor Rolon DO [address] [facility] 201 [place] [address] PCP - General 11/22/20 Mc Grant DO [address] [facility] 201 [place] [address] Referring Physician Gastroenterology 02/21/24 El Agarwal APRN [address] [place] [address] Referring Physician Gastroenterology 03/21/25 documented as of this encounter
--- OUTSIDE RECORDS SUMMARY | 2025-05-04 09:11 | XMS_ITS | Encounter Summary ---
Author Organization [facility] Address [address] [place] [address] Care Team Providers Care Food Service Sales Representatives Name Role Phone Trevor Rolon DO Primary Care Provider [phone] Mc Grant DO Unavailable [phone] El Agarwal MECHANICAL SHOVEL OPERATOR Unavailable [phone] Encounter Details Date Type Department Care Team (Late st Contact Info) Description 09/28/2023 Orders Only External Location [address] [place] [address] Provider, External Social History Tobacco Use Types [...] Info) Description 05/14/2025 2:00 PM EST Appointment [facility] [address] [place] [address] 05/18/2025 9:15 AM EST Clinical Support [facility] [address] [place] [address] 05/18/2025 9:30 AM EST Clinical Support [facility] [address] [place] [place] [address] CH - CLINICAL NUTRITION 800 [place] [address] 05/18/2025 10:50 AM EST Office Visit [facility] [address] [place] [place] [address] Nj Johns MD [address] [place] [address] 05/18/2025 11:30 AM EST Social Work [facility] [address] [place] [address] Thuy Dasilva, [place] [address] 05/18/2025 1:00 PM EST Appointment [facility] [address] [place] [address] 05/18/2025 1:30 PM EST Appointment [facility] [address], 1st Floor Wing [place] [address] 05/18/2025 1:30 PM EST Appointment [place] [facility] [address], 1[address] Floor Wing [place] [address] 05/18/2025 2:00 PM EST Pharmacist Visit [facility] [address] [address] 05/22/2025 11:15 AM EST Consult [facility] [address], 1st Floor Wing [address] [place] [address] Nigel Recinos MD [address] [address] 05/25/2025 11:30 AM EST Appointment [facility] [address] [place] [address] 05/25/2025 2:00 PM EST Appointment [facility] Pulmonary Function Testing 800 [place] [address] 05/25/2025 3:30 PM EST Appointment Cardiac Imaging [address] [place] [address] 05/31/2025 4:30 PM EST Appointment [facility] Breast Care [facility] [address] [facility] 800 [place] [address] 06/01/2025 11:00 AM EST Office Visit [facility] [place] [address] [facility], [address] [place] [address] Juana Gale, CYDNEY [address] [place] [address] 06/20/2025 10:30 AM EST Procedure Visit [place] [facility] [address], 1st [place] [address] Claire Davidson MD [address] [address] 06/21/2025 2:00 PM EST Office Visit [facility] [address] [facility], [address] [place] [address] Claire Davidson MD [address] [address] documented as of this encounter [...] as of this encounter Care Teams Food Service Sales Representatives Relationship Specialty Start Date End Date Trevor Rolon DO [address] [address] PCP - General 11/22/20 Mc Grant DO [address] [address] Referring Physician Gastroenterology 02/21/24 El Agarwal APRN [address] [place] [address] Referring Physician Gastroenterology 03/21/25 documented as of this encounter
--- OUTSIDE RECORDS SUMMARY | 2025-05-04 09:11 | XMS_ITS | Encounter Summary ---
Author Organization [facility] Address [address] [place] [address] Care Team Providers Care Weather Forcaster Name Role Phone Trevor Rolon DO Primary Care Provider Mc Grant DO Unavailable [phone] El Agarwal GLOBAL UPSTREAM MARKETING MANAGER Unavailable [phone] Encounter Details Date Type Department Care Team (Late st Contact Info) Description 10/24/2023 Orders Only External Location [address] [place] [address] Provider, External Social History Tobacco Use Types [...] Info) Description 05/14/2025 2:00 PM EST Appointment [facility] 24[address] [place] [address] 05/18/2025 9:15 AM EST Clinical Support [facility] [address] [place] [address] 05/18/2025 9:30 AM EST Clinical Support [facility] [address] [place] [place] [address] CH - CLINICAL NUTRITION 800 [place] [address] 05/18/2025 10:50 AM EST Office Visit [facility] [address] [place] [address] Nj Johns MD [address] [place] [address] 05/18/2025 11:30 AM EST Social Work [facility] [address] [place] [address] Thuy Dasilva, [place] [address] 05/18/2025 1:00 PM EST Appointment [facility] [address] [place] [address] 05/18/2025 1:30 PM EST Appointment [facility] [address], 1[address] Floor Wing [address] [place] [address] 05/18/2025 1:30 PM EST Appointment [place] [facility] [address], 1st Floor Wing [address] [place] [address] 05/18/2025 2:00 PM EST Pharmacist Visit [facility] [address] [place] [address] 05/22/2025 11:15 AM EST Consult [facility] [address], 1st Floor Wing [address] [place] [address] Nigel Recinos MD [address] [address] 05/25/2025 11:30 AM EST Appointment [facility] [address] [place] [address] 05/25/2025 2:00 PM EST Appointment [facility] Pulmonary Function Testing [address] [place] [address] 05/25/2025 3:30 PM EST Appointment Cardiac Imaging [address] [place] [address] 05/31/2025 4:30 PM EST Appointment [facility] Breast [facility] [address] [facility] 800 [place] [address] 06/01/2025 11:00 AM EST Office Visit [facility] [place] [address] [facility], [address] [place] [address] Juana Gale APRN [address] [place] [address] 06/20/2025 10:30 AM EST Procedure Visit [place] [facility] [address], 1st [place] [address] Claire Davidson MD [address] [address] 06/21/2025 2:00 PM EST Office Visit [facility] [address] [facility], [address] [place] [address] Claire Davidson MD [address] [address] documented as of this encounter [...] documented as of this encounter Care Teams Weather Forcaster Relationship Specialty Start Date End Date Trevor Rolon DO [address] [facility] 201 [place] [address] PCP - General 11/22/20 Mc Grant DO [address] [facility] 201 [place] [address] Referring Physician Gastroenterology 02/21/24 El Agarwal APRN [address] [place] [address] Referring Physician Gastroenterology 03/21/25 documented as of this encounter
--- OUTSIDE RECORDS SUMMARY | 2025-05-04 09:11 | XMS_ITS | Encounter Summary ---
Author Organization [facility] Address [address] [place] [address] Care Team Providers Care Airveyor Operator Name Role Phone Trevor Rolon DO Primary Care Provider Mc Grant DO Unavailable [phone] El Agarwal WATER TRUCK DRIVER Unavailable [phone] Encounter Details Date Type Department Care Team (Late st Contact Info) Description 07/01/2023 Orders Only External Location 800 [place] [address] Provider, External Social History Tobacco Use Types [...] Info) Description 05/14/2025 2:00 PM EST Appointment [facility] 24[address] [place] [address] 05/18/2025 9:15 AM EST Clinical Support [facility] [address] [place] [address] 05/18/2025 9:30 AM EST Clinical Support [facility] [address] [place] [place] [address] CH - CLINICAL NUTRITION 800 [place] [address] 05/18/2025 10:50 AM EST Office Visit [facility] [address] [place] [address] Nj Johns MD [address] [place] [address] 05/18/2025 11:30 AM EST Social Work [facility] [address] [place] [address] Thuy Dasilva, [place] [address] 05/18/2025 1:00 PM EST Appointment [facility] [address] [place] [address] 05/18/2025 1:30 PM EST Appointment [facility] [address], 1st Floor Wing C [place] [address] 05/18/2025 1:30 PM EST Appointment [facility] [address], 1st Floor Wing [address] [place] [address] 05/18/2025 2:00 PM EST Pharmacist Visit [facility] [address] [place] [address] 05/22/2025 11:15 AM EST Consult [facility] [address], 1st Floor Wing [address] [place] [address] Nigel Recinos MD [address] [address] 05/25/2025 11:30 AM EST Appointment [facility] [address] [place] [address] 05/25/2025 2:00 PM EST Appointment [facility] Pulmonary Function Testing 800 [place] [address] 05/25/2025 3:30 PM EST Appointment Cardiac Imaging [address] [place] [address] 05/31/2025 4:30 PM EST Appointment [facility] [address] [facility] 800 [place] [address] 06/01/2025 11:00 AM EST Office Visit [facility] [place] [address] [facility], [address] [place] [address] Juana Gale APRN 800 [place] [address] 06/20/2025 10:30 AM EST Procedure Visit [place] [facility] [address], 1st [place] [address] Claire Davidson MD [address] [address] 06/21/2025 2:00 PM EST Office Visit [facility] [address] [facility], [address] [place] [address] Claire Davidson MD [address] [address] documented as of this encounter [...] documented as of this encounter Care Teams Airveyor Operator Relationship Specialty Start Date End Date Trevor Rolon DO [address] [facility] 201 [place] [address] PCP - General 11/22/20 Mc Grant DO [address] [facility][1] Gabriel 201 [place] [address] Referring Physician Gastroenterology 02/21/24 El Agarwal APRN [address] [place] [address] Referring Physician Gastroenterology 03/21/25 documented as of this encounter
--- OUTSIDE RECORDS SUMMARY | 2025-05-04 09:11 | XMS_ITS | Encounter Summary ---
Author Organization [facility] Address [address] [place] [address] Care Team Providers Care Armored Car Guard And Driver Name Role Phone Trevor Rolon DO Primary Care Provider Mc Grant DO Unavailable [phone] El Agarwal GEEK SQUAD AGENT Unavailable [phone] Encounter Details Date Type Department Care Team (Late st Contact Info) Description 03/01/2023 Orders Only External Location [address] [place] [address] Provider, External Social History Tobacco Use Types [...] Info) Description 05/14/2025 2:00 PM EST Appointment [facility] [address] [place] [address] 05/18/2025 9:15 AM EST Clinical Support [facility] [address] [place] [address] 05/18/2025 9:30 AM EST Clinical Support [facility] [address] [place] [address] CH - CLINICAL NUTRITION 800 [place] [address] 05/18/2025 10:50 AM EST Office Visit [facility] [address] [place] [address] Nj Johns MD [address] [place] [address] 05/18/2025 11:30 AM EST Social Work [facility] [address] [place] [address] Thuy Dasilva, [place] [address] 05/18/2025 1:00 PM EST Appointment [facility] [address] [place] [address] 05/18/2025 1:30 PM EST Appointment [facility] [address], 1st Floor Wing C [place] [address] 05/18/2025 1:30 PM EST Appointment [place] [facility] [address], 1st Floor Wing [address] [place] [address] 05/18/2025 2:00 PM EST Pharmacist Visit [facility] [address] [address] 05/22/2025 11:15 AM EST Consult [facility] [address], 1st Floor Wing [address] [place] [address] Nigel Recinos MD [address] [address] 05/25/2025 11:30 AM EST Appointment [facility] [address] [place] [address] 05/25/2025 2:00 PM EST Appointment [facility] Pulmonary Function Testing [address] [place] [address] 05/25/2025 3:30 PM EST Appointment Cardiac Imaging [address] [place] [address] 05/31/2025 4:30 PM EST Appointment [facility] Breast Care [facility] Breast Care Center [facility] [address] [facility] 800 [place] [address] 06/01/2025 11:00 AM EST Office Visit [facility] [place] [address] [facility], [address] [place] [address] Juana Gale APRN [address] [place] [address] 06/20/2025 10:30 AM EST Procedure Visit [place] [facility] [address], 1st [place] [address] Claire Davidson MD [address] [address] 06/21/2025 2:00 PM EST Office Visit [facility] [address] [facility], [address] [place] [address] Claire Davidson MD [address] [address] documented as of this encounter [...] documented as of this encounter Care Teams Armored Car Guard And Driver Relationship Specialty Start Date End Date Trevor Rolon DO [address] [facility] 201 [place] [address] PCP - General 11/22/20 Mc Grant DO [address] [facility] Gabriel [address] [place] [address] Referring Physician Gastroenterology 02/21/24 El Agarwal APRN [address] [place] [address] Referring Physician Gastroenterology 03/21/25 documented as of this encounter
--- OUTSIDE RECORDS SUMMARY | 2025-05-04 09:12 | XMS_ITS | Encounter Summary ---
Author Organization [facility] Address [address] [place] [address] Care Team Providers Care Stitching Machine Feeder Or Offbearer Name Role Phone Trevor Rolon DO Primary Care Provider [phone] Mc Grant DO Unavailable [phone] El Agarwal RURAL SERVICE ENGINEER Unavailable [phone] Encounter Details Date Type Department Care Team (Late Contact Info) Description 08/16/2024 Orders Only External Location [address] [place] [address] Provider, External Social History Tobacco Use Types [...] Description 05/14/2025 2:00 PM EST Appointment [facility] [address] [place] [address] 05/18/2025 9:15 AM EST Clinical Support [facility] [address] [place] [address] 05/18/2025 9:30 AM EST Clinical Support [facility] [address] [place] [address] CH - CLINICAL NUTRITION 800 [place], [place] [address] 05/18/2025 10:50 AM EST Office Visit [facility] [address] [place] [address] Nj Johns MD [address] [facility] [address] [place] [address] 05/18/2025 11:30 AM EST Social Work [facility] [address] [place] [address] Thuy Dasilva, [place] [address] 05/18/2025 1:00 PM EST Appointment [facility] [address] [place] [address] 05/18/2025 1:30 PM EST Appointment [facility] [address], 1st [place] [address] 05/18/2025 1:30 PM EST Appointment [place] [facility] [address], 1st [place] [address] 05/18/2025 2:00 PM EST Pharmacist Visit [facility] [address] [place] [address] 05/22/2025 11:15 AM EST Consult [facility] [address], 1st [place] [address] Nigel Recinos MD [address] [place] [address] 05/25/2025 11:30 AM EST Appointment [facility] [address] [place] [address] 05/25/2025 2:00 PM EST Appointment [facility] Pulmonary Function Testing 800 [place] [address] 05/25/2025 3:30 PM EST Appointment Cardiac Imaging [address] [place] [address] 05/31/2025 4:30 PM EST Appointment [facility] [address] 800 [place] [address] 06/01/2025 11:00 AM EST Office Visit [facility] [place] [address] [facility], [address] [place] [address] Juana Gale, CYDNEY 800 [place] [address] 06/20/2025 10:30 AM EST Procedure Visit [place] [facility] [address], 1st [place] [address] Claire Davidson MD [address] [facility]01 [place] [address] 06/21/2025 2:00 PM EST Office Visit [facility] [address], [address] [place] [address] Claire Davidson MD [address] [place] [address] documented as of this encounter Procedures Procedure Name Priority Date/Time Associated Diagnosis Comments XR [facility] OUTSIDE IMAGES 08/16/2024 1:21 PM EST documented in this encounter Results * XR [facility] OUTSIDE IMAGES (08/16/2024 1:21 PM EST) Anatomical Region Laterality Modality Radiographic Zayda ging 08/16/2024 1:21 PM EST External Provider IMG XR PROCEDURES [...] documented as of this encounter Care Teams Stitching Machine Feeder Or Offbearer Relationship Specialty Start Date End Date Trevor Rolon DO [address] [address] PCP - General 11/22/20 Mc Grant DO [address] [address] Referring Physician Gastroenterology 02/21/24 El Agarwal APRN [address] [place] [address] Referring Physician Gastroenterology 03/21/25 documented as of this encounter
--- OUTSIDE RECORDS SUMMARY | 2025-05-04 09:12 | XMS_ITS | Encounter Summary ---
Author Organization [facility] Address [address] [place] [address] Care Team Providers Care Car Refinisher Name Role Phone Trevor Rolon DO Primary Care Provider Mc Grant DO Unavailable [phone] El Agarwal INSURANCE CLAIMS ASSISTANT Unavailable [phone] Encounter Details Date Type Department Care Team (Late Contact Info) Description 09/08/2024 Orders Only External Location [address] [place] [address] Provider, External Social History Tobacco Use Types [...] Description 05/14/2025 2:00 PM EST Appointment [facility] MRI [address] [place] [address] 05/18/2025 9:15 AM EST Clinical Support [facility] Transplant Center [address] [place] [address] 05/18/2025 9:30 AM EST Clinical Support [facility] [address] [place] [address] CH - CLINICAL NUTRITION [address] [place], [place] [id number] 05/18/2025 10:50 AM EST Office Visit [facility] [address] [place] [address] Nj Johns MD [address] [facility] D201 [place] [address] 05/18/2025 11:30 AM EST Social Work [facility] [address] [place] [address] Thuy Dasilva, [place] [address] 05/18/2025 1:00 PM EST Appointment [facility] Radiology [address] [place] [address] 05/18/2025 1:30 PM EST Appointment [facility] Radiology [address], 1st [place] [address] 05/18/2025 1:30 PM EST Appointment [facility] [address], 1st [place] [address] 05/18/2025 2:00 PM EST Pharmacist Visit [facility] [address] [place] [address] 05/22/2025 11:15 AM EST Consult [facility] [address], 1st [place] [address] Nigel Recinos MD [address] [place] [address] 05/25/2025 11:30 AM EST Appointment [facility] Radiology [address] [place] [address] 05/25/2025 2:00 PM EST Appointment [facility] Pulmonary Function Testing [address] [place] [address] 05/25/2025 3:30 PM EST Appointment Cardiac Imaging [address] [place] [address] 05/31/2025 4:30 PM EST Appointment [facility] Breast [facility] [address] 800 [place] [address] 06/01/2025 11:00 AM EST Office Visit [facility] [place] [facility] [address] [facility], [address] [place] [address] Juana Gale, CYDNEY [address] [place] [address] 06/20/2025 10:30 AM EST Procedure Visit [place] [facility] [address], 1st [place] [address] Claire Davidson MD [address] [facility]01 [place] [address] 06/21/2025 2:00 PM EST Office Visit [facility] [address], [address] [place] [address] Claire Davidson MD [address] [place] [address] documented as of this encounter [...] as of this encounter Care Teams Car Refinisher Relationship Specialty Start Date End Date Trevor Rolon DO [address] [facility] 201 [place] [address] PCP - General 11/22/20 Mc Grant DO [address] [facility] 201 [place] [address] Referring Physician Gastroenterology 02/21/24 El Agarwal APRN [address] [place] [address] Referring Physician Gastroenterology 03/21/25 documented as of this encounter
--- OUTSIDE RECORDS SUMMARY | 2025-05-04 09:12 | XMS_ITS | Encounter Summary ---
Author Organization [facility] Address [address] [place] [address] Care Team Providers Care Well Drill Operator Rotary Drill Name Role Phone Trevor Rolon DO Primary Care Provider [phone] Mc Grant DO Unavailable [phone] El Agarwal RADIO OPERATOR GROUND Unavailable [phone] Encounter Details Date Type Department Care Team (Late Contact Info) Description 04/28/2024 Orders Only External Location [address] [place] [address] Provider, External Social History Tobacco Use Types [...] Description 05/14/2025 2:00 PM EST Appointment [facility] MRI [address] [place] [address] 05/18/2025 9:15 AM EST Clinical Support [facility] Transplant Center [address] [place] [place] [address] 05/18/2025 9:30 AM EST Clinical Support [facility] Transplant Center [address] [place] [address] CH - CLINICAL NUTRITION 800 [place], [place] [phone] 05/18/2025 10:50 AM EST Office Visit [facility] Transplant Center [address] [place] [address] Nj Johns MD [address] [facility] [address] [place] [address] 05/18/2025 11:30 AM EST Social Work [facility] Transplant Center [address] [place] [address] Thuy Dasilva, [place] [address] 05/18/2025 1:00 PM EST Appointment [facility] Radiology [address] [place] [address] 05/18/2025 1:30 PM EST Appointment [facility] Radiology [address], 1st [place] [address] 05/18/2025 1:30 PM EST Appointment [facility] Rad[facility] [address], 1st [place] [address] 05/18/2025 2:00 PM EST Pharmacist Visit [facility] Transplant Center [address] [place] [address] 05/22/2025 11:15 AM EST Consult [facility] [address], 1st [place] [address] Nigel Recinos MD [address] [place] [address] 05/25/2025 11:30 AM EST Appointment [facility] Radiology [address] [place] [address] 05/25/2025 2:00 PM EST Appointment [facility] Pulmonary Function Testing [address] [place] [address] 05/25/2025 3:30 PM EST Appointment Cardiac Imaging [address] [place] [address] 05/31/2025 4:30 PM EST Appointment [facility] Breast [facility] [address] 800 [place] [address] 06/01/2025 11:00 AM EST Office Visit [facility] [place] [address] [facility], [address] [place] [address] Juana Gale, CYDNEY [address] [place] [address] 06/20/2025 10:30 AM EST Procedure Visit [place] [facility] [address], 1st [place] [address] Claire Davidson MD [address] [facility]01 [place] [address] 06/21/2025 2:00 PM EST Office Visit Professional [employer] [facility] [address], [address] [place] [address] Claire Davidson MD [address] [place] [address] documented as of this encounter [...] documented as of this encounter Care Teams Well Drill Operator Rotary Drill Relationship Specialty Start Date End Date Trevor Rolon DO [address] [facility] 201 [place] [address] PCP - General 11/22/20 Mc Grant DO [address] [facility] 201 [place] [address] Referring Physician Gastroenterology 02/21/24 El Agarwal APRN [address] [place] [address] Referring Physician Gastroenterology 03/21/25 documented as of this encounter
--- OUTSIDE RECORDS SUMMARY | 2025-05-04 09:13 | XMS_ITS | Encounter Summary ---
Author Organization [facility] nter Address [address] [place] [address] Care Team Providers Care Cushion Mat Maker Name Role Phone Trevor Rolon DO Primary Care Provider Lucy Christopher DO Unavailable Encounter Details Date Type Department Care Team (Late st Contact Info) Description 04/06/2025 Abstract [facility] [address], 2nd Floor Clinic [place] [phone] El Agarwal, CHIEF OF STAFF [address], [place] [address] Social History Tobacco Use Types Packs/Day Years [...] Info) Description 05/07/2025 3:00 PM EDT Appointment [facility] MAMMOGRAPHY SERVICES [facility] D [address] [place] [address] [facility] [place] [address] 06/18/2025 10:30 AM EST Office Visit [facility] GASTROENTEROLOGY PRACTICE [address] [place] [address], 2nd [place] [address] 06/27/2025 10:00 AM EST Office Visit [facility] SLEEP LAB PRACTICE [facility] [place] [address] Demario Silva DO [address] [place] [address] 08/16/2025 10:00 AM EST Office Visit [facility] ENDOCRINOLOGY PRACTICE [address] [place] [address], 8th [place] [address] Brigitte Mahoney NP [address] [place] [address] 09/18/2025 1:30 PM EDT Office Visit [facility] RHEUMATOLOGY PRACTICE [address], 8th Floor [facility] [place] [address] Suman Treviño MD [address] [facility]. Katie [place] [address] 12/13/2025 1:15 PM EDT Office Visit [facility] OBGYN PRACTICE [address], 7th [place] [address] Janice Woodward, CLAU [address] [place] [address] documented as of this encounter Visit Diagnoses Not on filedocumented in this encounter Additional Health Concerns Assessment Noted Time PHQ-9 Depression Total Score: 0 07/24/19 23 3:00 PM EST documented as of this encounter Care Teams Cushion Mat Maker Relationship Specialty Start Date End Date Trevor Rolon DO [address] [facility] [address] [place] [address] PCP - General Lucy Christopher DO [address] [place] [address] Consulting Physician Oncology 10/17/24 documented as of this encounter
--- OUTSIDE RECORDS SUMMARY | 2025-05-04 09:13 | XMS_ITS | Encounter Summary ---
Author Organization [facility] Address [address] [place] [address] Care Team Providers Care Cake Wringer Name Role Phone Trevor Rolon DO Primary Care Provider [phone] Mc Grant DO Unavailable [phone] El Agarwal NATIONAL OPELINT ANALYST Unavailable [phone] Encounter Details Date Type Department Care Team (Late Contact Info) Description 08/16/2024 Orders Only External Location [address] [place] [address] Provider, External Social History Tobacco Use Types [...] Description 05/14/2025 2:00 PM EST Appointment [facility] MRI [address] [place] [address] 05/18/2025 9:15 AM EST Clinical Support [facility] Transplant Center [address] [place] [address] 05/18/2025 9:30 AM EST Clinical Support [facility] Transplant Center [address] [place] [address] CH - CLINICAL NUTRITION 800 [place], [place] [phone] 05/18/2025 10:50 AM EST Office Visit [facility] Transplant Center [address] [place] [address] Nj Johns MD [address] [facility] [address] [place] [address] 05/18/2025 11:30 AM EST Social Work [facility] Transplant Center [address] [place] [address] Thuy Dasilva, [place] [address] 05/18/2025 1:00 PM EST Appointment [facility] Radiology [address] [place] [address] 05/18/2025 1:30 PM EST Appointment [facility] Radiology [address], 1st [place] [address] 05/18/2025 1:30 PM EST Appointment [facility] Radiology [address], 1st [place] [address] 05/18/2025 2:00 PM EST Pharmacist Visit [facility] Transplant Center [address] [place] [address] 05/22/2025 11:15 AM EST Consult [facility] [address], 1st [place] [address] Nigel Recinos MD [address] [place] [address] 05/25/2025 11:30 AM EST Appointment [facility] Radiology [address] [place] [address] 05/25/2025 2:00 PM EST Appointment [facility] H Pulmonary Function Testing 800 [place] [address] 05/25/2025 3:30 PM EST Appointment Cardiac Imaging [address] [place] [address] 05/31/2025 4:30 PM EST Appointment [facility] Breast [facility] [address] 800 [place] [address] 06/01/2025 11:00 AM EST Office Visit [facility] [place] [address] [facility], [address] [place] [address] Juana Gale, CYDNEY 800 [place] [address] 06/20/2025 10:30 AM EST Procedure Visit [place] [facility] [address], 1st [place] [address] Claire Davidson MD [address] [facility]01 [place] [address] 06/21/2025 2:00 PM EST Office Visit [facility] [address], [address] [place] [address] Claire Davidson MD [address] [place] [address] documented as of this encounter [...] documented as of this encounter Care Teams Cake Wringer Relationship Specialty Start Date End Date Trevor Rolon DO [address] [address] PCP - General 11/22/20 Mc Grant DO [address] [address] Referring Physician Gastroenterology 02/21/24 El Agarwal APRN [address] [place] [address] Referring Physician Gastroenterology 03/21/25 documented as of this encounter
--- OUTSIDE RECORDS SUMMARY | 2025-05-04 09:14 | XMS_ITS | Encounter Summary ---
Author Organization [facility] nter Address [address] [place] [address] Care Team Providers Care Cover Operator Name Role Phone Trevor Rolon DO Primary Care Provider Lucy Christopher DO Unavailable Reason for Visit * Reason Onset Date Comments vaginal swab 03/26/2025 Encounter Details Date Type Department Care Team (Late st Contact Info) Description 03/26/2025 Telephone [facility] [address], 7th Floor Clinic [place] [phone] Janice Woodward, CLAU [address] [place] [address] vaginal swab Social History Tobacco Use Types [...] How often do you attend chur or latter-day services? More than 4 times per year 07/24/2022 Do you belong to any clubs o r organizations such as episcopalian groups, unions, fraternal or athletic groups, or [...] Info) Description 05/07/2025 3:00 PM EDT Appointment [facility] MAMMOGRAPHY SERVICES BLDG D [address], Bldg [place] [address] 06/18/2025 10:30 AM EST Office Visit [facility] GASTROENTEROLOGY PRACTICE [address], 2nd Floor Clinic [place] [address] 06/27/2025 10:00 AM EST Office Visit [facility] SLEEP LAB PRACTICE [address], Tommy Bldg [place] [phone] Demario Silva DO [address] [place] [address] 08/16/2025 10:00 AM EST Office Visit [facility] ENDOCRINOLOGY PRACTICE [address], 8th [place] [address] Brigitte Mahoney NP [address] [place] [address] 09/18/2025 1:30 PM EDT Office Visit [facility] RHEUMATOLOGY PRACTICE [address], 8th [place] [address] Suman Treviño MD [address] [facility] [place] [address] 12/13/2025 1:15 PM EDT Office Visit [facility] OBGYN PRACTICE [address], 7th [place] [address] Janice Woodward, CLAU [address] [place] [address] documented as of this encounter Visit Diagnoses Not on filedocumented in this encounter Additional Health Concerns Assessment Noted Time PHQ-9 Depression Total Score: 0 07/24/19 23 3:00 PM EST documented as of this encounter Care Teams Cover Operator Relationship Specialty Start Date End Date Trevor Rolon DO [address] [facility] [address] [place] [address] PCP - General Lucy Christopher DO [address]ld[address] [place] [address] Consulting Physician Oncology 10/17/24 documented as of this encounter
--- OUTSIDE RECORDS SUMMARY | 2025-05-04 09:14 | XMS_ITS | Encounter Summary ---
Author Organization [facility] nter Address [address] [place] [address] Care Team Providers Care Program Schedule Clerk Name Role Phone Trevor Rolon DO Primary Care Provider Lucy Christopher DO Unavailable Encounter Details Date Type Department Care Team (Late st Contact Info) Description 03/20/2025 Orders Only [facility] GASTROENTEROLOGY PRACTICE [address], 2nd Floor Clinic [place] [phone] El Agarwal, DOOR HANGER [address], [place] [address] Hepatic cirrhosis, unspecified hepatic cirrhosis type, unspecified [...] How often do you attend chur or pentecostalism services? More than 4 times per year [...] Info) Description 05/07/2025 3:00 PM EDT Appointment [facility] MAMMOGRAPHY SERVICES [facility] D [address] [facility] [place] [address] 06/18/2025 10:30 AM EST Office Visit [facility] GASTROENTEROLOGY PRACTICE [address], 2nd [place] [address] 06/27/2025 10:00 AM EST Office Visit [facility] SLEEP LAB PRACTICE [address] [facility] [place] [address] Demario Silva DO 911 [place] [id number] 08/16/2025 10:00 AM EST Office Visit [facility] ENDOCRINOLOGY PRACTICE [address] [place] [address], 8th [place] [address] Brigitte Mahoney NP 911 [place] [address] 09/18/2025 1:30 PM EDT Office Visit [facility] RHEUMATOLOGY PRACTICE [address], 8th Floor Clinic [place] [address] Suman Treviño MD [address] [facility]. [place] [address] 12/13/2025 1:15 PM EDT Office Visit [facility] OBGYN PRACTICE [address], 7th Floor Clinic [place] [address] Janice Woodward, CLAU [address] [place] [address] documented as of this encounter Results * (ABNORMAL) Comprehensive metabolic panel (03/27/2025 11:52 AM EDT) Sodium 137 134 - 143 mmol/L 03/27/2025 12:43 PM [facility] Potassium 4.2 3.2 - 4.6 mmol/L 03/27/2025 12:43 PM [facility] Chloride 103 99 - 108 mmol/L 03/27/2025 12:43 PM [facility] CO2 28 19 - 29 mmol/L 03/27/2025 12:43 PM [facility] Anion Gap 6 5 - 15 mmol/L 03/27/2025 12:43 PM [facility] BUN 19 7 - 20 mg/dL 03/27/2025 12:43 PM [facility] Creatinine 1.02 <=1.20 mg/dL 03/27/2025 12:43 PM [facility] BUN/Creatinine Ratio 18.63 10.00 - 20.00 ratio 03/27/2025 12:43 PM [facility] Glucose 117(H) 58 - 104 mg/dL 03/27/2025 12:43 PM [facility] Calcium 9.3 7.9 - 11.1 mg/dL 03/27/2025 12:43 PM [facility] AST 55(H) 10 - 28 U/L 03/27/2025 12:43 PM [facility] ALT (SGPT) 36 <=40 U/L 03/27/2025 12:43 PM [facility] Alkaline Phosphatase 213(H) 29 - 108 U/L 03/27/2025 12:43 PM [facility] Total Protein 6.2 5.9 - 7.9 g/dL 03/27/2025 12:43 PM [facility] Albumin 3.1(L) 3.5 - 5.1 g/dL 03/27/2025 12:43 PM [facility] Globulin, Total 3.1 2.4 - 4.8 g/dL 03/27/2025 12:43 PM [facility] A/G Ratio 1.0 0.6 - 1.6 03/27/2025 12:43 PM [facility] Total Bilirubin 1.9(H) 0.3 - 1.0 mg/dL 03/27/2025 12:43 PM [facility] eGFR (CKD-EPI) 62.1 >60.0 - 200.0 mL/min/1.7 3m*2 03/27/2025 12:43 PM [facility] Blood Venous blood specimen / Unknown Venipuncture / Unknown 03/27/2025 11:52 AM EDT 03/27/2025 12:17 PM EDT us El Agarwal DOOR HANGER LAB BLOOD ORDERABLES Final Re sult [facility] [address] [place] [address], * (ABNORMAL) CBC (03/27/2025 11:52 AM EDT) Auto WBC 8.8 3.8 - 11.0 10*3/uL 03/27/2025 12:21 PM EDT [facility] RBC 3.97 3.73 - 5.13 10*6/uL 03/27/2025 12:21 PM EDT [facility] Hemoglobin 13.1 11.2 - 15.3 g/dL 03/27/2025 12:21 PM [facility] Hematocrit 39.1 32.6 - 44.6 % 03/27/2025 12:21 PM [facility] MCV 98.6(H) 78.8 - 96.0 fL 03/27/2025 12:21 PM EDT [facility] MCH 33.0 26.2 - 33.0 pg 03/27/2025 12:21 PM [facility] MCHC 33.5 32.7 - 35.1 g/dL 03/27/2025 12:21 PM [facility] RDW 14.5 12.1 - 16.1 % 03/27/2025 12:21 PM [facility] Platelets 88(L) 138 - 402 10*3/uL 03/27/2025 12:21 PM [facility] MPV 7.9 7.0 - 10.6 fL 03/27/2025 12:21 PM [facility] Blood Venous blood specimen / Unknown Venipuncture / Unknown 03/27/2025 11:52 AM EDT 03/27/2025 12:16 PM EDT us El Agarwal DOOR HANGER LAB BLOOD ORDERABLES Final Re sult [facility] [address] [place] [address], documented in this encounter Visit Diagnoses Diagnosis Hepatic cirrhosis, unspecified hepatic cirrhosis type, unspecified whether ascites present- Primary documented in this encounter Additional Health Concerns Assessment Noted Time PHQ-9 Depression Total Score: 0 07/24/19 23 3:00 PM EST documented as of this encounter Care Teams Program Schedule Clerk Relationship Specialty Start Date End Date Trevor Rolon DO [address] [facility] 201 [place] [phone] PCP - General Lucy Christopher DO [address] [place] [address] Consulting Physician Oncology 10/17/24 documented as of this encounter
--- OUTSIDE RECORDS SUMMARY | 2025-05-04 09:14 | XMS_ITS | Encounter Summary ---
Author Organization [facility] nter Address [address] [place] [address] Care Team Providers Care Breaker Up Name Role Phone Trevor Rolon DO Primary Care Provider Lucy Christopher DO Unavailable Encounter Details Date Type Department Care Team (Late st Contact Info) Description 03/21/2025 Telephone [facility] GASTROENTEROLOGY PRACTICE [address], 2nd Floor Clinic [place] [phone] El Agarwal, DIRECTOR OF ACQUISITION MARKETING [address], [place] [address] Social History Tobacco Use Types Packs/Day Years [...] Info) Description 05/07/2025 3:00 PM EDT Appointment [facility] MAMMOGRAPHY SERVICES BLDG D [address], [place] [address] 06/18/2025 10:30 AM EST Office Visit [facility] GASTROENTEROLOGY PRACTICE [address], 2nd Floor Clinic [place] [address] 06/27/2025 10:00 AM EST Office Visit [facility] SLEEP LAB PRACTICE [address] [place] [address] Demario Silva DO [address] [place] [address] 08/16/2025 10:00 AM EST Office Visit [facility] ENDOCRINOLOGY PRACTICE [address], 8th Floor Clinic [place] [address] Brigitte Mahoney NP [address] [place] [address] 09/18/2025 1:30 PM EDT Office Visit [facility] RHEUMATOLOGY PRACTICE [address], 8th Floor Clinic [place] [address] Suman Treviño MD [address] [place] [place] [id number] 12/13/2025 1:15 PM EDT Office Visit [facility] OBGYN PRACTICE [address], 7th Floor Clinic [place] [address] Janice Woodward, CLAU [address] [place] [phone] documented as of this encounter Visit Diagnoses Not on filedocumented in this encounter Additional Health Concerns Assessment Noted Time PHQ-9 Depression Total Score: 0 07/24/19 23 3:00 PM EST documented as of this encounter Care Teams Breaker Up Relationship Specialty Start Date End Date Trevor Rolon DO [address] [facility] [address] [place] [address] PCP - General Lucy Christopher DO [address] [place] [facility] Consulting Physician Oncology 10/17/24 documented as of this encounter
--- OUTSIDE RECORDS SUMMARY | 2025-05-04 09:14 | XMS_ITS | Encounter Summary ---
Author Organization [facility] nter Address [address] [place] [address] Care Team Providers Care Roll Icer Machine Name Role Phone Trevor Rolon DO Primary Care Provider Lucy Christopher DO Unavailable Encounter Details Date Type Department Care Team (Late st Contact Info) Description 03/28/2025 Results Follow-Up [facility] OBSTETRICS/GYNECOLOG Y UNIT [address], 4th [place] [address] Janice Woodward, SITE SPECIALIST [address] [place] [address] Vaginitis Panel, C. trachomatis / N. gonorrhoeae, [...] week 07/24/2022 How often do you attend [facility] or uatsdin services? More than 4 times [...] [facility] MAMMOGRAPHY SERVICES [facility] D [address] [facility], [facility] [place] [address] 06/18/2025 10:30 AM EST Office Visit [facility] GASTROENTEROLOGY PRACTICE 911 [facility], 2nd [place] [address] 06/27/2025 10:00 AM EST Office Visit [facility] 911 [facility] [place] [address] Demario Silva, [address] [place], [place] [address] 08/16/2025 10:00 AM EST Office Visit [facility]OCR[facility] [address] [place] [address], 8th [place] [address] Brigitte Mahoney NP [address] Bld[address] [place] [address] 09/18/2025 1:30 PM EDT Office Visit [facility] RHEUMATOLOGY PRACTICE [address], 8th Floor Clinic [place] [address] Suman Treviño MD [address] [place] [address] 12/13/2025 1:15 PM EDT Office Visit [facility] OBGYN PRACTICE [address], 7th Floor Clinic [place] [address] Janice Woodward NP [address] [place] [facility] documented as of this encounter Visit Diagnoses Not on filedocumented in this encounter Additional Health Concerns Assessment Noted Time PHQ-9 Depression Total Score: 0 07/24/19 23 3:00 PM EST documented as of this encounter Care Teams Roll Icer Machine Relationship Specialty Start Date End Date Trevor Rolon DO [address] [facility] [address] [place] [address] PCP - General Lucy Christopher DO [address]ld[address] [place] [address] Consulting Physician Oncology 10/17/24 documented as of this encounter
--- OUTSIDE RECORDS SUMMARY | 2025-05-04 09:14 | XMS_ITS | Encounter Summary ---
Author Organization [facility] nter Address [address] [place] [address] Care Team Providers Care Equipment Service Associate Name Role Phone Trevor Rolon DO Primary [...] How often do you attend chur or congregational services? More than 4 times [...] Info) Description 05/07/2025 3:00 PM EDT Appointment [facility] MAMMOGRAPHY SERVICES [facility] D [address] , [facility] [place] [phone] 06/18/2025 10:30 AM EST Office Visit [facility] GASTROENTEROLOGY PRACTICE 1 [facility], 2nd [place] [address] 06/27/2025 10:00 AM EST Office Visit [facility] LAB [facility] [place] [phone] Demario Silva DO [address] [place] [address] 08/16/2025 10:00 AM EST Office Visit [facility] [address], 8th [place] [address] Brigitte Mahoney NP [address] [facility] [place] [address] 09/18/2025 1:30 PM EDT Office Visit [facility] RHEUMATOLOGY PRACTICE [address], 8th [place] [address] Suman Treviño MD [address] [place] [address]. [place] [address] 12/13/2025 1:15 PM EDT Office Visit [facility] O[facility]YN [facility] [address], 7th [place] [phone] Janice Woodward, PROGRAM DEVELOPMENT MANAGER [address] [place] [address] documented as of this encounter Visit Diagnoses Not on filedocumented in this encounter Additional Health Concerns Assessment Noted Time PHQ-9 Depression Total Score: 0 07/24/19 23 3:00 PM EST documented as of this encounter Care Teams Equipment Service Associate Relationship Specialty Start Date End Date Trevor Rolon DO [address] [facility] [address] [place] [phone] PCP - General Lucy Christopher DO [address] [place] [place] [address] Consulting Physician Oncology 10/17/24 documented as of this encounter
--- OUTSIDE RECORDS SUMMARY | 2025-05-04 09:14 | XMS_ITS | Encounter Summary ---
Author Organization [facility] nter Address [address] [place] [address] Care Team Providers Care Corporate Claims Examiner Name Role Phone Trevor Rolon DO Primary Care Provider Lucy Christopher DO Unavailable Encounter Details Date Type Department Care Team (Latest Contact Info) Description 03/20/2025 Results Follow-Up [facility] GASTROENTEROLOGY PRACTICE [address], 2nd [place] [address] El Agarwal, ROUSTABOUT SUPERVISOR [address], [place] [address] CBC, Basic metabolic panel, Hepatic function panel, [...] any clubs o r organizations such as spiritism groups, unions, fraternal or athletic groups, or [...] Info) Description 05/07/2025 3:[address] [facility] MAMMOGRAPHY SERVICES [facility] D [address] [place] [address], [place] [phone] 06/18/2025 10:30 AM EST Office Visit [facility] GASTROENTEROLOGY PRACTICE 1 [facility], 2nd [place] [address] 06/27/2025 10:00 AM EST Office Visit [facility] SLEEP LAB PRACTICE [facility] [place] [phone] Demario Silva DO [address] [place] [address] 08/16/2025 10:00 AM EST Office Visit [facility] ENDOCRINOLOGY PRACTICE [address], 8th [place] [address] Brigitte Mahoney NP [address] [place] [address] [place] [address] 09/18/2025 1:30 PM EDT Office Visit [facility] RHEUMATOLOGY PRACTICE [address] 8th [place] [address] Suman Treviño MD [address] [place] [address]. [place] [address] 12/13/2025 1:15 PM EDT Office Visit [facility] [address], 7th [place] [address] Janice Woodward, CLAU [address] [place] [address] documented as of this encounter Visit Diagnoses Not on filedocumented in this encounter Additional Health Concerns Assessment Noted Time PHQ-9 Depression Total Score: 0 07/24/19 23 3:00 PM EST documented as of this encounter Care Teams Corporate Claims Examiner Relationship Specialty Start Date End Date Trevor Rolon DO [address] [facility] [address] [place] [address] PCP - General Lucy Christopher DO [address] [place] [address] Consulting Physician Oncology 10/17/24 documented as of this encounter
--- OUTSIDE RECORDS SUMMARY | 2025-05-04 09:15 | XMS_ITS | Encounter Summary ---
Author Organization [facility] nter Address [address] [place] [address] Care Team Providers Care Radio Personality Name Role Phone Trevor Rolon DO Primary [...] How often do you attend chur or caodaism services? More than 4 times [...] Info) Description 05/07/2025 3:00 PM EDT Appointment [facility] MAMMOGRAPHY SERVICES [facility] D [address] , [facility] D [place] [phone] 06/18/2025 10:30 AM EST Office Visit [facility] GASTROENTEROLOGY PRACTICE 1 [facility], 2nd [place] [address] 06/27/2025 10:00 AM EST Office Visit [facility] SLEEP LAB PRACTICE [facility] [place] [phone] Demario Silva DO [address] [place] [address] 08/16/2025 10:00 AM EST Office Visit [facility] [address], 8th [place] [address] Brigitte Mahoney NP [address] [facility] [place] [address] 09/18/2025 1:30 PM EDT Office Visit [facility] RHEUMATOLOGY PRACTICE [address], 8th [place] [address] Suman Treviño MD [address] [place] [address]. [place] [address] 12/13/2025 1:15 PM EDT Office Visit [facility] [address], 7th [place] [phone] Janice Woodward, RESTAURANT SUPERVISOR [address] [place] [address] documented as of this encounter Visit Diagnoses Not on filedocumented in this encounter Additional Health Concerns Assessment Noted Time PHQ-9 Depression Total Score: 0 07/24/19 23 3:00 PM EST documented as of this encounter Care Teams Radio Personality Relationship Specialty Start Date End Date Trevor Rolon DO [address] [facility] [address] [place] [phone] PCP - General Lucy Christopher DO [address] [place] [place] [address] Consulting Physician Oncology 10/17/24 documented as of this encounter
--- OUTSIDE RECORDS SUMMARY | 2025-05-04 09:16 | XMS_ITS | Encounter Summary ---
Author Organization [facility] nter Address [address] [place] [address] Care Team Providers Care Purchasing Officer Name Role Phone Trevor Rolon DO Primary Care Provider Lucy Christopher DO Unavailable Reason for Referral * Consultation (Routine) - Authorized Specialty Diagnoses / Procedures Referred By Truong bella Referred To Contact Hematology Diagnoses Monoclonal gammopathy Procedures DC OFFICE/OUTPATIENT NEW SF MDM 15 MINUTES DC OFFICE/OUTPATIENT NEW LOW MDM 30 MINUTES DC OFFICE/OUTPATIENT NEW MODERATE MDM 45 MINUTES DC OFFICE/OUTPATIENT NEW HIGH MDM 60 MINUTES DC OFFICE/OUTPATIENT ESTABLISHED SF MDM 10 MIN DC OFFICE/OUTPATIENT ESTABLISHED LOW MDM 20 MIN DC OFFICE/OUTPATIENT ESTABLISHED MOD MDM 30 MIN DC OFFICE/OUTPATIENT ESTABLISHED HIGH MDM 40 MIN Ben Knox MD [address] [facility] [place] [address] Phone: tel: fax: Referral ID Status Reason Start Date Expiration Date Visits Requested Visits Authorized [id number] Authorized Specialty Services Required 11/17/2024 11/17/2025 1 3 Encounter Details Date Type Department Care Team (Late st Contact Info) Description 11/17/2024 Orders Only [facility] NEUROLOGY PRACTICE [facility] [address], [address] [place] [address] Mary Cobos, CLAU [address] [place] [address] Monoclonal gammopathy (Primary Dx) Social [...] How often do you attend [facility] or hindu services? More than 4 times [...] Info) Description 05/07/2025 3:00 PM EDT Appointment [facility] MAMMOGRAPHY [facility] D [address], [facility] D [phone] 06/18/2025 10:30 AM EST Office Visit [facility] GASTROENTER[facility]ACT[facility] [address], 2nd Floor [place] [phone] 06/27/2025 10:00 AM EST Office Visit [facility] SLEEP LAB PRACTICE [address], [place] [phone] Demario Silva DO [address] [place] [address] 08/16/2025 10:00 AM EST Office Visit [facility] ENDOCRINOLOGY PRACTICE [address], 8th Floor [place] [phone] Brigitte Mahoney NP [address] [facility] [place] [phone] 09/18/2025 1:30 PM EDT Office Visit [facility] RHEUMATOLOGY PRACTICE [address], 8th [place] [address] Suman Treviño MD [address] [place] [address]. [place] [address] 12/13/2025 1:15 PM EDT Office Visit [facility] OBGYN PRACTICE [address], 7th [place] [address] Janice Woodward NP [address] [place] [address] Scheduled Referrals Name Type Priority Associated Diagnoses Order Schedule Ambulatory referral/appointment with Hematology Outpatient Referral Routine Monoclonal gammopathy Expected: 11/17/2024 (Approximate), Expires: 11/17/2025 documented as of this encounter Visit Diagnoses Diagnosis Monoclonal gammopathy- Primary Monoclonal paraproteinemia documented in this encounter Additional Health Concerns Assessment Noted Time PHQ-9 Depression Total Score: 0 07/24/19 23 3:00 PM EST documented as of this encounter Care Teams Purchasing Officer Relationship Specialty Start Date End Date Trevor Rolon DO [address] [facility] [address] [place] [phone] PCP - General Lucy Christopher DO [address] [facility] [place] [address] Consulting Physician Oncology 10/17/24 documented as of this encounter
--- OUTSIDE RECORDS SUMMARY | 2025-05-04 09:16 | XMS_ITS | Encounter Summary ---
Author Organization [facility] nter Address [address] [place] [address] Care Team Providers Care Hospital Account Liaison Name Role Phone Trevor Rolon DO Primary Care Provider Lucy Christopher DO Unavailable Reason for Referral * Consultation (Routine) - Authorized Specialty Diagnoses / Procedures Referred By Truong bella Referred To Contact Obstetrics and Gynecology Diagnoses Well woman exam with routine gynecological exam Procedures [place] OFFICE/OUTPATIENT NEW SF MDM 15 MINUTES [place] OFFICE/OUTPATIENT NEW LOW MDM 30 MINUTES [place] OFFICE/OUTPATIENT NEW MODERATE MDM 45 MINUTES [place] OFFICE/OUTPATIENT NEW HIGH MDM 60 MINUTES [place] OFFICE/OUTPATIENT ESTABLISHED SF MDM 10 MIN [place] OFFICE/OUTPATIENT ESTABLISHED LOW MDM 20 MIN [place] OFFICE/OUTPATIENT ESTABLISHED MOD MDM 30 MIN [place] OFFICE/OUTPATIENT ESTABLISHED HIGH MDM 40 MIN Laquita Corral PA [address] [facility] [address] [place] [address] Phone: tel: fax: Lupe Crisostomo DO [address] [place] [address] Phone: tel: fax: Referral ID Status Reason Start Date Expiration Date Visits Requested Visits Authorized [id number] Authorized Specialty Services Required 11/28/2024 11/28/2025 1 3 Encounter Details Date Type Department Care Team (Latest Contact Info) Description 11/28/2024 Community Orders Epic[facility] Link [address] [facility] [place] [address] Laquita Corral PA [address] [facility] [address] [place] [address] Well woman exam with routine gynecological exam [...] any clubs o r organizations such as yazdanism groups, unions, fraternal or athletic groups, or [...] [facility] MAMMOGRAPHY SERVICES [facility] D [address], [facility] [place] [address] 06/18/2025 10:30 AM EST Office Visit [facility]STRO[facility] [address], 2nd [place] [address] 06/27/2025 10:00 AM EST Office Visit [facility] SLEEP LAB PRACT[facility] [address], Tommy [facility] [place] [address] Demario Silva DO [address] [place] [phone] 08/16/2025 10:00 AM EST Office Visit [facility] ENDOCRINOLOGY PRACTICE [address], 8th [place] [address] Brigitte Mahoney, CLAU [address] [facility] [place] [address] 09/18/2025 1:30 PM EDT Office Visit [facility] RHEUMATOLOGY PRACTICE [address], 8th [place] [address] Suman Treviño MD [address] [facility]. [place] [address] 12/13/2025 1:15 PM EDT Office Visit [facility] OBGYN PRACTICE [address], 7th [place] [address] Janice Woodward NP [address] [place] [phone] Scheduled Referrals Name Type Priority Associated Diagnoses [...] as of this encounter Care Teams Hospital Account Liaison Relationship Specialty Start Date End Date Trevor Rolon DO [address] [facility] [address] [place] [phone] PCP - General Lucy Christopher DO [address] [facility] [address] [facility] [place] [address] Consulting Physician Oncology 10/17/24 documented as of this encounter
--- OUTSIDE RECORDS SUMMARY | 2025-05-04 09:16 | XMS_ITS | Encounter Summary ---
Author Organization [facility] nter Address [address] [place] [address] Care Team Providers Care Bilingual Loan Processor Name Role Phone Trevor Rolon DO Primary Care Provider Lucy Christopher DO Unavailable Reason for Referral * Consultation (Routine) - Authorized Specialty Diagnoses / Procedures Referred By Truong bella Referred To Contact Podiatry Diagnoses Left foot pain Procedures [place] OFFICE/OUTPATIENT NEW SF MDM 15 MINUTES MT OFFICE/OUTPATIENT NEW LOW MDM 30 MINUTES MT OFFICE/OUTPATIENT NEW MODERATE MDM 45 MINUTES MT OFFICE/OUTPATIENT NEW HIGH MDM 60 MINUTES MT OFFICE/OUTPATIENT ESTABLISHED SF MDM 10 MIN MT OFFICE/OUTPATIENT ESTABLISHED LOW MDM 20 MIN [place] OFFICE/OUTPATIENT ESTABLISHED MOD MDM 30 MIN MT OFFICE/OUTPATIENT ESTABLISHED HIGH MDM 40 MIN Laquita Corral PA [address] [facility] [address] [place] [address] Phone: tel: fax: Alexandr Zarate, DPM [address] [place] [address] Phone: tel: fax: Referral ID Status Reason Start Date Expiration Date Visits Requested Visits Authorized [id number] Authorized Specialty Services Required 10/27/2024 10/27/2025 1 3 Encounter Details Date Type Department Care Team (Late st Contact Info) Description 10/26/2024 Community Orders [facility] Link [address] [facility] [place] [address] Laquita Corral PA [address] [facility] [address] [place] [address] Arthralgia of left foot (Primary Dx); Left [...] How often do you attend chur or church services? More than 4 times per year [...] PM EDT Appointment [facility] MAMMOGRAPHY SERVICES [facility] D [address], [facility] [place] [address] 06/18/2025 10:30 AM EST Office Visit [facility] GASTROENTEROLOGY PRACTICE [address], 2nd [place] [address] 06/27/2025 10:00 AM EST Office Visit [facility] SLEEP LAB PRACTICE [address], [place] [address] Demario Silva DO [address] [place] [phone] 08/16/2025 10:00 AM EST Office Visit [facility] ENDOCRINOLOGY PRACTICE [facility] [address] 8th [place] [address] Brigitte Mahoney NP [address] [facility] [place] [address] 09/18/2025 1:30 PM EDT Office Visit [facility] RHEUMATOLOGY PRACTICE [address], 8th [place] [address] Suman Treviño MD [address] [facility]. [place] [address] 12/13/2025 1:15 PM EDT Office Visit [facility] OBGYN PRACTICE [address], 7th [place] [address] Janice Woodward NP [address] [place] [address] Scheduled Referrals Name Type Priority Associated Diagnoses Order Schedule Ambulatory referral/appointment with Podiatry Outpatient Referral Routine Left foot pain Expected: 10/27/2024 (Approximate), Expires: 10/27/2025 documented as of this encounter Results * (ABNORMAL) CBC (10/26/2024 1:37 PM EDT) [facility] Auto WBC 4.5 3.8 - 11.0 10*3/uL 10/26/2024 4:17 PM EDT [facility] RBC 3.93 3.73 - 5.13 10*6/uL 10/26/2024 4:17 PM EDT [facility] Hemoglobin 13.3 11.2 - 15.3 g/dL 10/26/2024 4:17 PM EDT [facility] Hematocrit 38.5 32.6 - 44.6 % 10/[facility]24 [facility] MCV 97.8(H) 78.8 - 96.0 fL 10/26/2024 4:17 PM EDT [facility] MCH 33.9(H) 26.2 - 33.0 pg 10/26/2024 4:17 [facility] MCHC 34.6 32.7 - 35.1 g/dL 10/26/2024 4:17 PM [facility] RDW 13.2 12.1 - 16.1 % 10/26/2024 4:17 PM [facility] Platelets 73(L) 138 - 402 10*3/uL 10/26/2024 4:17 PM [facility] MPV 8.8 7.0 - 10.6 fL 10/26/2024 4:17 PM [facility] Blood Venous blood specimen / Unknown Venipuncture / Unknown 10/26/2024 1:37 PM EDT 10/26/2024 1:37 PM EDT us Laquita WELSH LAB BLOOD ORDERABLES Final Re sult [facility] [address] [place] [address], * Uric acid (10/26/2024 1:37 PM EDT) [facility] Uric Acid 3 2 - 8 mg/dL 10/26/2024 4:12 PM EDT [facility] Blood Venous blood specimen / Unknown Venipuncture / Unknown 10/26/2024 1:37 PM EDT 10/26/2024 1:37 PM EDT Narrative [facility] - 10/26/2024 4:12 PM EDT Please note possible changes in reference range and units reported due to change in methodology. us Laquita WELSH LAB BLOOD ORDERABLES Final Re sult [facility] [address] [place] [address], documented in this encounter Visit Diagnoses Diagnosis Arthralgia of left foot- Primary Left foot pain Pain in soft tissues of limb documented in this encounter Additional Health Concerns Assessment Noted Time PHQ-9 Depression Total Score: 0 07/24/19 23 3:00 PM EST documented as of this encounter Care Teams Bilingual Loan Processor Relationship Specialty Start Date End Date Trevor Rolon DO [address] [facility] [address] [place] [phone] PCP - General Lucy Christopher DO [address] [place] [address] Consulting Physician Oncology 10/17/24 documented as of this encounter
--- OUTSIDE RECORDS SUMMARY | 2025-05-04 09:18 | XMS_ITS | Encounter Summary ---
Author Organization [facility] nter Address [address] [place] [address] Care Team Providers Care Skin Diving Teacher Name Role Phone Trevor Rolon DO Primary Care Provider Lucy Christopher DO Unavailable Reason for Referral * Imaging (Routine) - Closed Specialty Diagnoses / Procedures Referred By Conttrudy bella Referred To Contact Cardiology Diagnoses PAD (peripheral artery disease) Procedures US arterial doppler bilateral lower ext Vascular US lower extremity arterial Doppler complete Ben Knox MD [address] [place] [address] Phone: tel: fax: [facility] CARDIAC [facility]NOSTIC [address], 1st [place] [address] Phone: tel: fax: Referral ID Status Reason Start Date Expiration Date V isits Requested Visits Authorized [id number] Closed Perform Procedure 11/15/2024 11/15/2025 1 1 Encounter Details Date Type Department Care Team (Late st Contact Info) Description 11/15/2024 Orders Only [facility] NEUROLOGY PRACTICE [address] [address] Ben Knox MD [address] [facility] [place] [address] PAD (peripheral artery disease) (Primary [...] you attend [facility] or restoration services? More than 4 times per year [...] PM EDT Appointment [facility] MAMMOGRAPHY SERVICES DEBBIE Klein [address], [place] [address] 06/18/2025 10:30 AM EST Office Visit [facility] GASTROENTEROLOGY PRACTICE [address], 2nd [place] [address] 06/27/2025 10:00 AM EST Office Visit [facility] SLEEP LAB PRACTICE [address], [place] [address] Demario Silva DO [address] [place] [address] 08/16/2025 10:00 AM EST Office Visit [facility] ENDOCRINOLOGY [facility]ACTICE [address], 8th [place] [phone] Brigitte Mahoney NP [address] [facility] [place] [phone] 09/18/2025 1:30 PM EDT Office Visit [facility] RHEUMATOLOGY PRACTICE [address], 8th [place] [address] Suman Treviño MD [address] [facility] [place] [address] 12/13/2025 1:15 PM EDT Office Visit [facility] OBGYN PRACTICE [address], 7th [place] [address] Janice Woodward NP [address] [place] [address] documented as of this encounter Results * [...] Dsouza MD 11/15/2024 02:41 PM EDT RPWorkstation: [id number] Ben Knox MD IM US PROCEDURES Final Result documented in this encounter Visit Diagnoses Diagnosis PAD (peripheral artery disease)- Primary Unspecified peripheral vascular disease PAD (peripheral artery disease) Unspecified peripheral vascular disease documented in this encounter Additional Health Concerns Assessment Noted Time PHQ-9 Depression Total Score: 0 07/24/19 23 3:00 PM EST documented as of this encounter Care Teams Skin Diving Teacher Relationship Specialty Start Date End Date Trevor Rolon DO [address] [facility] [address] [place] [address] PCP - General Lucy Christopher DO [address] [place] [address] [place] [address] Consulting Physician Oncology 10/17/24 documented as of this encounter
--- OUTSIDE RECORDS SUMMARY | 2025-05-04 09:19 | XMS_ITS | Encounter Summary ---
Author Organization [facility] nter Address [address] [place] [address] Care Team Providers Care Hide Curer Name Role Phone Trevor Rolon DO Primary Care Provider Lucy Christopher DO Unavailable Reason for Referral * Consultation (Routine) - Authorized Specialty Diagnoses / Procedures Referred By Truong bella Referred To Contact Rheumatology Diagnoses Psoriatic arthritis Procedures ME OFFICE/OUTPATIENT NEW SF MDM 15 MINUTES ME OFFICE/OUTPATIENT NEW LOW MDM 30 MINUTES ME OFFICE/OUTPATIENT NEW MODERATE MDM 45 MINUTES ME OFFICE/OUTPATIENT NEW HIGH MDM 60 MINUTES ME OFFICE/OUTPATIENT ESTABLISHED SF MDM 10 MIN ME OFFICE/OUTPATIENT ESTABLISHED LOW MDM 20 MIN ME OFFICE/OUTPATIENT ESTABLISHED MOD MDM 30 MIN ME OFFICE/OUTPATIENT ESTABLISHED HIGH MDM 40 MIN Laquita Corral PA [address] [facility] [address] [place] [address] Phone: tel: fax: Suman Treviño MD [address] [place] [address] Phone: tel: fax: Referral ID Status Reason Start Date Expiration Date Visits Requested Visits Authorized [id number] Authorized Specialty Services Required 09/01/2024 09/01/2025 1 3 Encounter Details Date Type Department Care Team (Late st Contact Info) Description 09/01/2024 Community Orders EpicCare Link [address] [facility] [place] [address] Laquita Corral PA [address] [facility] [address] [place] [address] Psoriatic arthritis (Primary Dx) Social History Tobacco [...] week 07/24/2022 [facility] or roman catholic services? More than 4 times per [...] MAMMOGRAPHY SERVICES BL D [address], [facility] [place] [address] 06/18/2025 10:30 AM EST Office Visit [facility] GASTROENTEROLOGY PRACTICE [address], 2nd [place] [address] 06/27/2025 10:00 AM EST Office Visit [facility] SLEEP LAB PRACTICE [address], Tommy [facility] [place] [address] Demario Silva DO [address] [place] [address] 08/16/2025 10:00 AM EST Office Visit [facility] ENDOCRINOLOGY PRACTICE [address], 8th [place] [address] Brigitte Mahoney NP [address] [facility] [place] [id number] 09/18/2025 1:30 PM EDT Office Visit [facility] RHEUMATOLOGY PRACTICE [address], 8th [place] [address] Suman Treviño MD [address] [facility] [place] [address] 12/13/2025 1:15 PM EDT Office Visit [facility] OBGYN PRACTICE [address], 7th [place] [address] Janice Woodward NP [address] [place] [address] Scheduled Referrals Name Type Priority Associated Diagnoses Order Schedule Ambulatory referral/appointment with Rheumatology Outpatient Referral Routine Psoriatic arthritis Expected: 09/01/2024 (Approximate), Expires: 09/01/2025 documented as of this encounter Visit Diagnoses Diagnosis Psoriatic arthritis- Primary Psoriatic arthropathy documented in this encounter Additional Health Concerns Assessment Noted Time PHQ-9 Depression Total Score: 0 07/24/19 23 3:00 PM EST documented as of this encounter Care Teams Hide Curer Relationship Specialty Start Date End Date Trevor Rolon DO [address] [facility] [address] [place] [phone] PCP - General Lucy Christopher DO [address] [place] [address] [place] [address] Consulting Physician Oncology 10/17/24 documented as of this encounter
--- OUTSIDE RECORDS SUMMARY | 2025-05-04 09:19 | XMS_ITS | Encounter Summary ---
Author Organization [facility] nter Address [address] [place] [address] Care Team Providers Care Hardware Press Operator Name Role Phone Trevor Rolon DO Primary Care Provider Lucy Christopher DO Unavailable Encounter Details Date Type Department Care Team (Late st Contact Info) Description 12/29/2022 Orders Only [facility] DIABETES EDUCATION [address], 2nd Floor [place] [address] Brigitte Mahoney, CLAU [address] [place] [address] Social History Tobacco Use Types [...] How often do you attend [facility] or yazidi services? More than 4 times per year 07/24/2022 Do you belong to any clubs o r organizations such as jainism groups, unions, fraternal or athletic groups, or [...] Appointment [facility] MAMMOGRAPHY SERVICES [facility] D [address] [facility], [facility] [address] 06/18/2025 10:30 AM EST Office Visit [facility] [address] [facility], 2nd [place] [address] 06/27/2025 10:00 AM EST Office Visit [facility] SLEEP [facility] [address] [facility] [place] [address] Demario Silva DO [address] [place] [address] 08/16/2025 10:00 AM EST Office Visit [facility]IN[facility] [address], 8th Floor [facility] [address] Brigitte Mahoney NP [address] Bld[address] A [place] [address] 09/18/2025 1:30 PM EDT Office Visit [facility] RHEUMATOLOGY PRACTICE [address], 8th Floor [facility] [place] [address] Suman Treviño MD [address] A [place] [facility] 12/13/2025 1:15 PM EDT Office Visit [facility] OBGYN PRACTICE [address], 7th Floor [facility] [place] [address] Janice Woodward NP [address] [place] [address] documented as of this encounter Visit Diagnoses Not on filedocumented in this encounter Additional Health Concerns Assessment Noted Time PHQ-9 Depression Total Score: 0 07/24/19 23 3:00 PM EST documented as of this encounter Care Teams Hardware Press Operator Relationship Specialty Start Date End Date Trevor Rolon DO [address] [facility] [address] [place] [address] PCP - General Lucy Christopher DO [address] Bld[address] [place] [address] Consulting Physician Oncology 10/17/24 documented as of this encounter
--- OUTSIDE RECORDS SUMMARY | 2025-05-04 09:19 | XMS_ITS | Encounter Summary ---
Author Organization [facility] nter Address [address] [place] [address] Care Team Providers Care Special Officer Automat Name Role Phone Trevor Rolon DO Primary Care Provider Lucy Christopher DO Unavailable Reason for Visit * Reason Comments Med Refill Encounter Details Date Type Department Care Team (Late st Contact Info) Description 09/14/2022 Refill [facility] NEUROLOGY PRACTICE [address], 8th Floor Clinic [place] [phone] Lupe Villalta, MARKETING ENGINEER [address] [facility] [place] [address] Other specified diabetes mellitus with [...] How often do you attend chur or restoration services? More than 4 times [...] a longterm (including now)? No 07/24/2022 Comments Unknown Sex [...] Description 05/07/2025 3:00 PM EDT Appointment [facility] MAMMOGRAPHY SERVICES BLDG D [address], Bldg D [place] [address] 06/18/2025 10:30 AM EST Office Visit [facility] GASTROENTEROLOGY PRACTICE [address], 2nd Floor Clinic [place] [address] 06/27/2025 10:00 AM EST Office Visit [facility] SLEEP LAB PRACTICE [address], [place] Bldg [place] [phone] Demario Silva DO [address] [place] [address] 08/16/2025 10:00 AM EST Office Visit [facility] ENDOCRINOLOGY PRACTICE [address], 8th Floor Clinic [place] [phone] Brigitte Mahoney NP [address] [place] [phone] 09/18/2025 1:30 PM EDT Office Visit [facility] RHEUMATOLOGY PRACTICE [address], 8th Floor [place] [phone] Suman Treviño MD [address] [facility] [place] [address] 12/13/2025 1:15 PM EDT Office Visit [facility] OBGYN PRACTICE [address], 7th [place] [address] Janice Woodward, CLAU [address] [place] [address] documented as of this encounter Visit Diagnoses Diagnosis Other specified diabetes mellitus with diabetic neuropathy, unspecified documented in this encounter Additional Health Concerns Assessment Noted Time PHQ-9 Depression Total Score: 0 07/24/19 23 3:00 PM EST documented as of this encounter Care Teams Special Officer Automat Relationship Specialty Start Date End Date Trevor Rolon DO [address] [facility] [address] [place] [address] PCP - General Lucy Christopher DO [address] [place] [address] Consulting Physician Oncology 10/17/24 documented as of this encounter
--- OUTSIDE RECORDS SUMMARY | 2025-05-04 09:19 | XMS_ITS | Encounter Summary ---
Author Organization [facility] nter Address [address] [place] [address] Care Team Providers Care Tank Wagon Operator Name Role Phone Trevor Rolon DO Primary Care Provider Lucy Christopher DO Unavailable Encounter Details Date Type Department Care Team (Late st Contact Info) Description 09/01/2024 Orders Only [facility]CRIN[facility] [address], 8th Floor Clinic [place] [phone] Brigitte Mahoney, CLAU [address] [place] [address] Social History Tobacco Use Types [...] Info) Description 05/07/2025 3:00 PM EDT Appointment [facility] MAMMOGRAPHY SERVICES [facility] D [address] [place] [address] [facility] [address] 06/18/2025 10:30 AM EST Office Visit [facility] GASTROENTEROLOGY PRACTICE [address] [place] [address], 2nd [place] [address] 06/27/2025 10:00 AM EST Office Visit [facility] SLEEP LAB [facility]ACT[facility] [place] [address] Demario Silva DO [address] [place] [address] 08/16/2025 10:00 AM EST Office Visit [facility] ENDOCRINOLOGY PRACTICE [address] [place] [address], 8th [place] [address] Brigitte Mahoney NP 911 [facility] [place] [address] 09/18/2025 1:30 PM EDT Office Visit [facility] RHEUMATOLOGY PRACTICE [address], 8th Floor [facility] [address] Suman Treviño MD [address] [facility]. [place] [address] 12/13/2025 1:15 PM EDT Office Visit [facility] OBGYN PRACTICE [address], 7th [place] [address] Janice Woodward, CLAU [address] [place] [address] documented as of this encounter Visit Diagnoses Not on filedocumented in this encounter Additional Health Concerns Assessment Noted Time PHQ-9 Depression Total Score: 0 07/24/19 23 3:00 PM EST documented as of this encounter Care Teams Tank Wagon Operator Relationship Specialty Start Date End Date Trevor Rolon DO [address] [facility] [address] [place] [address] PCP - General Lucy Christopher DO [address] [place] [address] Consulting Physician Oncology 10/17/24 documented as of this encounter
--- OUTSIDE RECORDS SUMMARY | 2025-05-04 09:20 | XMS_ITS | Encounter Summary ---
Author Organization [facility] Address [address] [place] [address] Care Team Providers Care Licensed Customs Broker Name Role Phone Trevor Rolon DO Primary Care Provider Mc Grant DO Unavailable [phone] El Agarwal STRADDLE TRUCK DRIVER Unavailable [phone] Reason for Visit * Reason Onset Date Comments [facility] Same Day Appt/Overbook Request 04/05/2025 OVERBOOK Encounter Details Date Type Department Care Team (Late st Contact Info) Description 04/05/2025 Telephone [facility] [address] [place] [address] [facility] Same Day Appt/Overbook Request [...] live alone and will be moving to [place] to live with her sister. Pts sister is pt of A CYDNEY Alvarez and pt is asking to become a pt with her as well. Please call pt to discuss Best contact number: [phone] (mobile) Optimal time of day to reach caller: ANYTIME Additional comments/information from caller: none Note: Please do not reply to this message. Follow-up communication and further actions as a result of this message need to be communicated with the patient directly, if the patient is not active onMyChart. If the patient is active on MyChart, they will receive notification of the communication/outcome via [employer]. documented in this encounter Plan of Treatment Upcoming Encounters Date Type Department Care Team (Late st Contact Info) Description 05/14/2025 2:00 PM EST Appointment [facility] [address] [place] [address] 05/18/2025 9:15 AM EST Clinical Support [facility] [place] [address] [place] [address] 05/18/2025 9:30 AM EST Clinical Support [facility] [address] [place] [address] CH - CLINICAL NUTRITION [address] [place] [address] 05/18/2025 10:50 AM EST Office Visit [facility] [address] [place] [address] Nj Johns MD [address] [place] [address] 05/18/2025 11:30 AM EST Social Work [facility] [address] [place] [address] Thuy Dasilva, [place] [address] 05/18/2025 1:00 PM EST Appointment [facility] [address] [place] [address] 05/18/2025 1:30 PM EST Appointment [facility] [address], 1st Floor Wing C [place] [address] 05/18/2025 1:30 PM EST [facility] [address], 1st Floor Wing [place] [address] 05/18/2025 2:00 PM EST Pharmacist Visit [facility] [address] [place] [phone] 05/22/2025 11:15 AM EST Consult [facility] [address], 1st Floor Wing C [place] [address] Nigel Recinos MD [address] [place] [address] 05/25/2025 11:30 AM EST Appointment [facility] Rad[facility] [address] [place] [address] 05/25/2025 2:00 PM EST Appointment [facility] Pulmonary Function Testing [address] [place] [address] 05/25/2025 3:30 PM EST Appointment Cardiac Imaging [address] [place] [address] 05/31/2025 4:30 PM EST Appointment [facility] Amandeep [place] Building [address] [place] [address] 06/01/2025 11:00 AM EST Office Visit [facility] [place] [address] [facility], [address] [place] [address] Juana Gale, STRADDLE TRUCK DRIVER [address] [place] [address] 06/20/2025 10:30 AM EST Procedure Visit [place] [facility] [address], 1st [place] [address] Claire Davidson MD [address] [facility] [address] [place] [address] 06/21/2025 2:00 PM EST Office Visit [facility] [address] [facility], [address] [place] [address] Claire Davidson MD [address] [place] [phone] [place] [address] documented as of this encounter [...] documented as of this encounter Care Teams Licensed Customs Broker Relationship Specialty Start Date End Date Trevor Rolon DO [address] [place] [address] PCP - General 11/22/20 Mc Grant DO [address] [place] [address] [place] [id number] Referring Physician Gastroenterology 02/21/24 El Agarwal APRN [address] [place] [address] Referring Physician Gastroenterology 03/21/25 documented as of this encounter
--- OUTSIDE RECORDS SUMMARY | 2025-05-04 09:20 | XMS_ITS | Encounter Summary ---
Author Organization [facility] Address [address] [place] [address] Care Team Providers Care Manager Bank Name Role Phone Trevor Rolon DO Primary Care Provider [phone] Mc Grant DO Unavailable [phone] El Agarwal PHYSICIAN CREDENTIALING SPECIALIST Unavailable [phone] Encounter Details Date Type Department Care [...] Eloisa [place] documented as of this encounter Plan of Treatment Upcoming Encounters Date Type Department Care Team (Late st Contact Info) Description 05/14/2025 2:00 PM EST Appointment [facility] [address] [place] [address] 05/18/2025 9:15 AM EST Clinical Support [facility] [address] [place] [address] 05/18/2025 9:30 AM EST Clinical Support [facility] [address] [place] [phone] Kaley Almanza, XAVI CH - CLINICAL NUTRITION [address] [place] [address] 05/18/2025 10:50 AM EST Office Visit [facility] [address] [place] [address] Nj Johns MD [address] [place] [address] 05/18/2025 11:30 AM EST Social Work [facility] [address] [place] [address] Thuy Dasilva, [place], [place] [phone] 05/18/2025 1:00 PM EST Appointment [facility] [address] [place] [address] 05/18/2025 1:30 PM EST Appointment [facility] [address], 1st [place] [address] 05/18/2025 1:30 PM EST Appointment [facility] [address], 1st [place] [address] 05/18/2025 2:00 PM EST Pharmacist Visit [facility] [address] [place] [address] 05/22/2025 11:15 AM EST Consult [facility] [address], 1st [place] [address] Nigel Recinos MD [address] [address] 05/25/2025 11:30 AM EST Appointment [facility] [address] [place] [address] 05/25/2025 2:00 PM EST Appointment [facility] Pulmonary Function Testing [address] [place] [address] 05/25/2025 3:30 PM EST Appointment Cardiac Imaging [address] [place] [address] 05/31/2025 4:30 PM EST Appointment [facility] Breast Care [place] [address] Jan[address] [place] Building [address] [place] [address] 06/01/2025 11:00 AM EST Office Visit [facility] [place] [address] [facility], [address] [place] [address] Juana Gale, CYDNEY [address] [place] [address] 06/20/2025 10:30 AM EST Procedure Visit [place] [facility] [address], 1st [place] [address] Claire Davidson MD [address] [address] 06/21/2025 2:00 PM EST Office Visit [facility] [address] [facility], [address] [place] [address] Claire Davidson MD [address] [address] documented as of this encounter [...] as of this encounter Care Teams Manager Bank Relationship Specialty Start Date End Date Trevor Rolon DO [address] [facility] [address] [place] [address] PCP - General 11/22/20 Mc Grant DO [address] [facility] [address] [place] [address] Referring Physician Gastroenterology 02/21/24 El Agarwal APRN [address] [place] [address] Referring Physician Gastroenterology 03/21/25 documented as of this encounter
--- OUTSIDE RECORDS SUMMARY | 2025-05-04 09:20 | XMS_ITS | Encounter Summary ---
Author Organization [facility] Address [address] [place] [address] Care Team Providers Care Medicaid Billing Specialist Name Role Phone Trevor Rolon DO Primary Care Provider Mc Grant DO Unavailable [phone] El Agarwal TOOL MACHINIST Unavailable [phone] Encounter Details Date Type Department Care Team (Late st Contact Info) Description 04/19/2025 Results Follow-Up [facility] [address] [facility] [address] [place] [address] Madyson Sarabia, RN HOSPITAL LIVER [id number] [address] [place] [address] Social History Tobacco Use Types Packs/Day Years [...] Miscellaneous Notes * Result Encounter Note - Madyson Sarabia RN - 04/19/2025 3:31 PM EDT Updated labs. Patient has not gained any more weight and is slowing losing water weight. documented in this encounter Plan of Treatment Upcoming Encounters Date Type Department Care Team (Late st Contact Info) Description 05/14/2025 2:00 PM EST Appointment [facility] [address] [place] [address] 05/18/2025 9:15 AM EST Clinical Support [facility] [address] [facility] [address] [place] [address] 05/18/2025 9:30 AM EST Clinical Support [facility] [address] [address] CH - CLINICAL NUTRITION [address] [place], [place] [id number] 05/18/2025 10:50 AM EST Office Visit [facility] [address] [place] [address] Nj Johns [facility] [address] [facility] [address] [place] [address] 05/18/2025 11:30 AM EST Social Work [facility] [address] [facility] [address] [place] [address] [place] [address] 05/18/2025 1:00 PM EST Appointment [facility] Radiology [address] [place] [address] 05/18/2025 1:30 PM EST Appointment [facility] [address], 1st [place] [address] 05/18/2025 1:30 PM EST Appointment [facility] [address], 1st [place] [address] 05/18/2025 2:00 PM EST Pharmacist Visit [facility] [address] [place] [address] 05/22/2025 11:15 AM EST Consult [facility] [address], 1st [place] [address] Nigel Recinos MD [address] [place] [address] 05/25/2025 11:30 AM EST Appointment [facility] [address] [place] [address] 05/25/2025 2:00 PM EST Appointment [facility] Pulmonary Function Testing 800 [place] [address] 05/25/2025 3:30 PM EST Appointment Cardiac Imaging [address] [place] [address] 05/31/2025 4:30 PM EST Appointment [facility] [address] [place] [address] 06/01/2025 11:00 AM EST Office Visit [facility] [place] [address] [facility], [address] [place] [address] Juana Gale, TOOL MACHINIST [address] [place] [address] 06/20/2025 10:30 AM EST Procedure Visit [facility] [address], 1st [place] [address] Claire Davidson MD [address] [place] [address] 06/21/2025 2:00 PM EST Office Visit [facility] [address] [facility], [address] [place] [address] Claire Davidson MD [address] [place] [address] documented as of this encounter [...] documented as of this encounter Care Teams Medicaid Billing Specialist Relationship Specialty Start Date End Date Trevor Rolon DO [address] [facility] 201 [place] [address] PCP - General 11/22/20 Mc Grant DO [address] [facility] 201 [place] [address] Referring Physician Gastroenterology 02/21/24 El Agarwal APRN [address] [place] [address] Referring Physician Gastroenterology 03/21/25 documented as of this encounter
--- OUTSIDE RECORDS SUMMARY | 2025-05-04 09:20 | XMS_ITS | Encounter Summary ---
Author Organization [facility] Address [address] [place] [address] Care Team Providers Care Conciliator Name Role Phone Trevor Rolon DO Primary Care Provider [phone] Mc Grant DO Unavailable [phone] El Agarwal RN CVOR Unavailable [phone] Encounter Details Date Type Department Care Team (Late st Contact Info) Description 04/12/2025 Telephone [facility] Transplant Center [address] [facility] [address] [place] [address] Madyson Sarabia, RN HOSPITAL LIVER [id number] 800 [place] [address] Social History Tobacco Use Types [...] encounter Miscellaneous Notes * Telephone Encounter - Madyson Sarabia RN - 04/12/2025 1:21 PM EDT Reviewed with Dr. Johns. He adv to increase Bumex 2 mg Bid and spironolactone 250 mg/day Phd patient-s/w Trudy, adv of change. She understood. She will get labs in a week. * Telephone Encounter - Madyson Sarabia RN - 04/12/2025 9:56 AM EDT Rec'd ph call from patient. She adv she had labs at [facility]. She adv she has gained 19 lbs since her visit last week, and gained 7 lbs overnight. documented in this encounter Plan of Treatment Upcoming Encounters Date Type Department Care Team (Late st Contact Info) Description 05/14/2025 2:00 PM EST Appointment [facility] [address] [place] [address] 05/18/2025 9:15 AM EST Clinical Support [facility] Transplant [place] [address] [place] [address] 05/18/2025 9:30 AM EST Clinical Support [facility] Transplant [place] [address] [place] [address] CH - CLINICAL NUTRITION [address] [place] [address] 05/18/2025 10:50 AM EST Office Visit [facility] Transplant [place] [address] [place] [address] Nj Johns MD [address] [place] [address] 05/18/2025 11:30 AM EST Social Work [facility] Transplant Center [address] [place] [address] Thuy Dasilva, [place] [address] 05/18/2025 1:00 PM EST Appointment [facility] Radiology [address] [place] [address] 05/18/2025 1:30 PM EST Appointment [facility] Radiology [address], 1st [place] [address] 05/18/2025 1:30 PM EST Appointment [facility] Radiology [address], 1st [place] [address] 05/18/2025 2:00 PM EST Pharmacist Visit [facility] Transplant Center [address] [facility] [address] [place] [address] 05/22/2025 11:15 AM EST Consult [facility] [address], 1st [place] [address] Nigel Recinos MD [address] [facility] [address] [place] [address] 05/25/2025 11:30 AM EST Appointment [facility] Rad[facility] [address] [place] [address] 05/25/2025 2:00 PM EST Appointment [facility] Pulmonary Function Testing 800 [place] [address] 05/25/2025 3:30 PM EST Appointment Cardiac Imaging [address] [place] [address] 05/31/2025 4:30 PM EST Appointment [facility] [address] Building 800 [place] [address] 06/01/2025 11:00 AM EST Office Visit [facility] [place] [address] [facility], [address] [place] [address] Juana Gale, RN CVOR [address] [place] [address] 06/20/2025 10:30 AM EST Procedure Visit [place] [facility] [address], 1st [place] [address] Claire Davidson MD [address] [place] [address] 06/21/2025 2:00 PM EST Office Visit [facility] [place] [facility] [address] [facility], [address] [place] [address] Claire Davidson MD [address] [place] [address] documented as of this encounter Procedures Procedure Name Priority Date/Time Associated Diagnosis Comments CBC W/O DIFFERENTIAL Routine 04/19/2025 COMPREHENSIVE METABOLIC PANEL, PLASMA Routine 04/19/2025 PROTHROMBIN TIME(PT) / INR Routine 04/11/2025 CBC W/O DIFFERENTIAL Routine 04/11/2025 COMPREHENSIVE METABOLIC PANEL, PLASMA Routine 04/11/2025 documented in this encounter Results * Comprehensive Metabolic Panel, Plasma (04/19/2025) External Glucose 100 External BUN 33 External Creatinine Blood 1.4 mg/dL External Sodium (Na) 129 mEq/L External Potassium (K) 5.1 External Chloride (Cl) 92 External Carbon Dioxide (CO2) 29 External Calcium (Ca) 9 External Total Protein 6.3 External Albumin 3.1 g/dL External AST (SGOT) 86 External ALT (SGPT) 73 External Alkaline Phosphatase 267 External Bilirubin Total 2.4 mg/dL Blood Venous blood specimen / Unknown 04/19/2025 Result [facility] Provider LAB BLOOD ORDERABLES Final R esult * CBC W/O Differential (04/19/2025) External WBC 8.8 External Red Blood Cell (RBC) 3.69 External Hemoglobin (Hgb) 12.80 External Hematocrit (Hct) 36.9 External Platelet Count (Plt) 98 Blood Venous blood specimen / Unknown 04/19/2025 Result [facility] LAB BLOOD ORDERABLES Final R esult * Comprehensive Metabolic Panel, Plasma (04/11/2025) External Glucose 130 External BUN 24 External Creatinine Blood 0.90 mg/dL External Sodium (Na) 128 mEq/L External Potassium (K) 4.3 External Chloride (Cl) 98 External Carbon Dioxide (CO2) 23 External Calcium (Ca) 8.7 External Total Protein 6.1 External Albumin 3.0 g/dL External AST (SGOT) 92 External ALT (SGPT) 70 External Alkaline Phosphatase 225 External Bilirubin Total 3.4 mg/dL Blood Venous blood specimen / Unknown 04/11/2025 Result [facility] LAB BLOOD ORDERABLES Final R esult * CBC W/O Differential (04/11/2025) External WBC 9.3 External Red Blood Cell (RBC) 3.55 External Hemoglobin (Hgb) 12.20 External Hematocrit (Hct) 35.1 External Platelet Count (Plt) 78 Blood Venous blood specimen / Unknown 04/11/2025 Result [facility] LAB BLOOD ORDERABLES Final R esult * Prothrombin Time/INR (04/11/2025) External Prothrombin Time (PT) 13.1 External INR - Internormal Ratio 1.2 Blood Venous blood specimen / Unknown 04/11/2025 us Historical Provider LAB BLOOD ORDERABLES Final [...] documented as of this encounter Care Teams Conciliator Relationship Specialty Start Date End Date Trevor Rolon DO [address] [facility] 201 [place] [address] PCP - General 11/22/20 Mc Grant DO [address] [facility] 201 [place] [address] Referring Physician Gastroenterology 02/21/24 El Agarwal APRN [address] [place] [address] Referring Physician Gastroenterology 03/21/25 documented as of this encounter
--- OUTSIDE RECORDS SUMMARY | 2025-05-04 09:21 | XMS_ITS | Encounter Summary ---
Author Organization [facility] Address [address] [place] [address] Care Team Providers Care Game Farm Helper Name Role Phone Trevor Rolon DO Primary Care Provider [phone] Mc Grant DO Unavailable [phone] El Agarwal WOOD FURNITURE ASSEMBLER Unavailable [phone] Encounter Details Date Type Department Care [...] Info) Description 05/14/2025 2:00 PM EST Appointment [facility] MRI [address] [facility] [place] [address] 05/18/2025 9:15 AM EST Clinical Support [facility] Trans[facility] Center [address] [place] [address] 05/18/2025 9:30 AM EST Clinical Support [facility] [address] [place] [address] CH - CLINICAL NUTRITION [address] [place], [place] [id number] 05/18/2025 10:50 AM EST Office Visit [facility] [address] [place] [address] Nj Johns MD [address] [address] 05/18/2025 11:30 AM EST Social Work [facility] [address] [place] [address] Thuy Dasilva, [place] [address] 05/18/2025 1:00 PM EST Appointment [facility] Radiology [address] [place] [address] 05/18/2025 1:30 PM EST Appointment [facility] [address], [address] [place] [address] 05/18/2025 1:30 PM EST Appointment [facility] [address], 1[address] [place] [address] 05/18/2025 2:00 PM EST Pharmacist Visit [facility] [address] [place] [address] 05/22/2025 11:15 AM EST Consult [facility] [address], 1st Floor [address] [place] [address] Nigel Recinos MD [address] [address] 05/25/2025 11:30 AM EST Appointment [facility] [address] [place] [address] 05/25/2025 2:00 PM EST Appointment [facility] Pulmonary Function Testing 800 [place] [address] 05/25/2025 3:30 PM EST Appointment Cardiac Imaging [address] [place] [address] 05/31/2025 4:30 PM EST Appointment [facility] [address] [place] [address] 06/01/2025 11:00 AM EST Office Visit [facility] [place] [address] [facility], [address] [place] [address] Juana Gale APRN 800 [place] [address] 06/20/2025 10:30 AM EST Procedure Visit [place] [facility] [address], 1st [place] [address] Claire Davidson MD [address] [address] 06/21/2025 2:00 PM EST Office Visit [facility] [address] [facility], [address] [place] [address] Claire Davidson MD [address] [facility] [place] [address] documented as of this encounter [...] of this encounter Care Teams Game Farm Helper Relationship Specialty Start Date End Date Trevor Rolon DO [address] [facility] 201 [place] [address] PCP - General 11/22/20 Mc Grant DO [address] [facility] 201 [place] [address] Referring Physician Gastroenterology 02/21/24 El Agarwal APRN [address] [place] [address] Referring Physician Gastroenterology 03/21/25 documented as of this encounter
--- OUTSIDE RECORDS SUMMARY | 2025-05-04 09:22 | XMS_ITS | Encounter Summary ---
Author Organization [facility] Address [address] [place] [address] Care Team Providers Care Software Applications Specialist Name Role Phone Trevor Rolon DO Primary Care Provider [phone] Mc Grant DO Unavailable [phone] El Agarwal BILLET STRAIGHTENER Unavailable [phone] Reason for Visit * Reason Comments Appointment Confirmation and rem inders Encounter Details Date Type Department Care Team (Late st Contact Info) Description 03/28/2025 Telephone [facility] [address] [facility] [address] [place] [address] Sharri Almonte [place] [phone] Appointment (Confirmation and reminders) Social History Tobacco [...] Info) Description 05/14/2025 2:00 PM EST Appointment [facility] [address] [place] [address] 05/18/2025 9:15 AM EST Clinical Support [facility] [address] [place] [address] 05/18/2025 9:30 AM EST Clinical Support [facility] Transplant [place] [address] [place] [address] Kaley Almanza, RD CH - CLINICAL NUTRITION [address] [place] [address] 05/18/2025 10:50 AM EST Office Visit [facility] [address] [place] [address] Nj Johns MD [address] [place] [address] 05/18/2025 11:30 AM EST Social Work [facility] [address] [place] [address] [place] [address] 05/18/2025 1:00 PM EST Appointment [facility] Radiology [address] [place] [address] 05/18/2025 1:30 PM EST Appointment [facility] Radiology [address], 1st [place] [address] 05/18/2025 1:30 PM EST Appointment [facility] Radiology [address], 1st [place] [address] 05/18/2025 2:00 PM EST Pharmacist Visit [facility] Transplant Center [address] [place] [address] 05/22/2025 11:15 AM EST Consult [facility] [address], 1st [place] [address] Nigel Recinos MD [address] [place] [address] 05/25/2025 11:30 AM EST Appointment [facility] [address] [place] [address] 05/25/2025 2:00 PM EST Appointment [facility] Pulmonary Function Testing 800 [place] [address] 05/25/2025 3:30 PM EST Appointment Cardiac Imaging [address] [place] [address] 05/31/2025 4:30 PM EST Appointment [facility] [address] [place] [address] 06/01/2025 11:00 AM EST Office Visit [facility] [place] [address] [facility], [address] [place] [address] Juana Gale APRN 800 [place] [address] 06/20/2025 10:30 AM EST Procedure Visit [place] [facility] [address], 1st [place] [address] Claire Davidson MD [address] [place] [address] 06/21/2025 2:00 PM EST Office Visit [facility] [address] [facility], [address] [place] [address] Claire Davidson MD [address] [place] [address] documented as of this encounter [...] documented as of this encounter Care Teams Software Applications Specialist Relationship Specialty Start Date End Date Trevor Rolon DO [address] [place] [address] PCP - General 11/22/20 Mc Grant DO [address] [place] [address] Referring Physician Gastroenterology 02/21/24 El Agarwal APRN [address] [place] [address] Referring Physician Gastroenterology 03/21/25 documented as of this encounter
--- OUTSIDE RECORDS SUMMARY | 2025-05-04 09:22 | XMS_ITS | Encounter Summary ---
Author Organization [facility] Address [address] [place] [address] Care Team Providers Care Special Forces Senior Sergeant Name Role Phone Trevor Rolon DO Primary Care Provider Mc Grant DO Unavailable [phone] El Agarwal DRYWALL INSTALLER Unavailable [phone] Encounter Details Date Type Department Care Team (Late st Contact Info) Description 03/28/2025 Telephone [facility] Transplant Center [address] [facility] [address] [place] [address] Sharri Almonte [place] [phone] Social History Tobacco Use Types Packs/Day Years [...] - provided alternate contact for Laquita Brijesh ([phone]). documented in this encounter Plan of Treatment Upcoming Encounters Date Type Department Care Team (Late st Contact Info) Description 05/14/2025 2:00 PM EST Appointment [facility] [address] [place] [address] 05/18/2025 9:15 AM EST Clinical Support [facility] Transplant [place] [address] [place] [address] 05/18/2025 9:30 AM EST Clinical Support [facility] Transplant [place] [address] [place] [address] CH - CLINICAL NUTRITION 800 [place] [address] 05/18/2025 10:50 AM EST Office Visit [facility] Transplant [place] [address] [place] [address] Nj Johns MD [address] [place] [address] 05/18/2025 11:30 AM EST Social Work [facility] Transplant [place] [address] [place] [address] Thuy Dasilva, [place] [address] 05/18/2025 1:00 PM EST Appointment [facility] Radiology [address] [place] [address] 05/18/2025 1:30 PM EST Appointment [facility] Radiology [address], 1st [place] [address] 05/18/2025 1:30 PM EST Appointment [facility] Radiology [address], 1[address] [place] [address] 05/18/2025 2:00 PM EST Pharmacist Visit [facility] Transplant Center [address] [place] [address] 05/22/2025 11:15 AM EST Consult [facility] [address], 1st [place] [address] Nigel Recinos MD [address] [facility] [address] [place] [address] 05/25/2025 11:30 AM EST Appointment [facility] [address] [place] [address] 05/25/2025 2:00 PM EST Appointment [facility] Pulmonary Function Testing 800 [place] [address] 05/25/2025 3:30 PM EST Appointment Cardiac Imaging [address] [place] [address] 05/31/2025 4:30 PM EST Appointment [facility] [address] 800 [place] [address] 06/01/2025 11:00 AM EST Office Visit [facility] [place] [address] [facility] [place] [address] Juana Gale DRYWALL INSTALLER [address] [place] [address] 06/20/2025 10:30 AM EST Procedure Visit [place] [facility] [address], 1st [place] [address] Claire Davidson MD [address] [place] [address] 06/21/2025 2:00 PM EST Office Visit [facility] [employer] [place] [facility] [address] , [address] [place] [address] Claire Davidson MD [address] [facility]01 [place] [address] documented as of this encounter [...] as of this encounter Care Teams Special Forces Senior Sergeant Relationship Specialty Start Date End Date Trevor Rolon DO [address] [place] [address] PCP - General 11/22/20 Mc Grant DO [address] [place] [address] Referring Physician Gastroenterology 02/21/24 El Agarwal APRN [address] [place] [address] Referring Physician Gastroenterology 03/21/25 documented as of this encounter
--- OUTSIDE RECORDS SUMMARY | 2025-05-04 09:23 | XMS_ITS | Encounter Summary ---
Author Organization [facility] nter Address [address] [place] [address] Care Team Providers Care Solar Installation Crew Supervisor Name Role Phone Trevor Rolon DO Primary Care Provider Lucy Christopher DO Unavailable Encounter Details Date Type Department Care Team (Late st Contact Info) Description 12/10/2022 Orders Only [facility] [address], 8[address] Clinic [place] [id number] Lupe Villalta, [employer] [address] [facility] [place] [address] Social History Tobacco Use Types [...] any clubs o r organizations such as orthodoxy groups, unions, fraternal or athletic groups, or [...] Info) Description 05/07/2025 3:00 PM EDT Appointment [facility] D [address], [facility] [place] [address] 06/18/2025 10:30 AM EST Office Visit [facility] [address] 2[address] [place] [address] 06/27/2025 10:00 AM EST Office Visit [facility] [address] [facility] [place] [address] Demario Silva DO [address] [place] [id number] 08/16/2025 10:00 AM EST Office Visit [facility] [address] [facility] [address], 8th Floor [facility] [place] [address] Brigitte Mahoney NP [address] [place] [address] 09/18/2025 1:30 PM EDT Office Visit [facility]HEUMAT[facility]Y [facility] [address] [place] [address] Suman Treviño MD [address] [facility] 12/13/2025 1:15 PM EDT Office Visit [facility]YN [facility] [address] 7[address] [place] [address] Janice Woodward NP [address] [place] [address] documented as of this encounter Visit Diagnoses Not on filedocumented in this encounter Additional Health Concerns Assessment Noted Time PHQ-9 Depression Total Score: 0 07/24/19 23 3:00 PM EST documented as of this encounter Care Teams Solar Installation Crew Supervisor Relationship Specialty Start Date End Date Trevor Rolon DO [address] [facility] [address] [id number] PCP - General Lucy Christopher DO [address] [place] [address] Consulting Physician Oncology 10/17/24 documented as of this encounter
--- OUTSIDE RECORDS SUMMARY | 2025-05-04 09:23 | XMS_ITS | Clinical Summary ---
Author Organization [facility] Address [address] [place] [address] Care Team Providers Care Programmer Numerical Control Name Role Phone Trevor Rolon DO Primary Care Provider [phone] Mc Grant DO Unavailable [phone] El Agarwal WEATHER STRIP INSTALLER Unavailable [phone] Allergies Active Allergy Reactions Criticality Noted Date [...] 3 Active ergocalciferol (Vitamin D-2) 1.25 MG (11278 UT) capsule Take 1 capsule by mouth [...] mouth daily. 5 Active Continuous Glucose Sensor ([employer] G7 Sensor) misc USE TO MONITOR BLOOD SUGAR DIRECTED. CHANGE SENSOR EVERY 10 DAYS. 5 Active Blood Glucose Monitoring Suppl ([employer] Lite) w/Device kit use DIRECTED TO check [...] tablet by mouth nightly. 30 tablet 5 Active Active Problems Problem Noted Date Diagnosed [...] experienced similar symptoms and her GI in [place] started her on Xifaxan, which reportedly resolved the symptoms, despite a recurrence in October 2021. Her symptoms today have since significantly resolved, per patient. She states she has had no lapses in taking her medication during these periods, although today she is out of the medication and her GI in [place] has discharged her from the practice due to no-show visits. Dr. Rolon in [place] was called to see if he will Rx the medication. Referral to [facility] was made. Patient also has ocular [...] Encounters Date Type Department Care Team Description 04/19/2025 Results Follow-Up [facility] [address] [place] [address] Madyson Sarabia, RN 04/12/2025 Telephone [facility] [address] [place] [address] Madyson Sarabia, RN 04/05/2025 Telephone [facility] [address] [place] [phone] [facility] Same Day Appt/Overbook Request (OVERBOOK) 04/03/2025 8:40 AM EDT Office Visit [facility] [address] [address] Swapnil Madrigal MD Surgeon, Transplant Liver End-stage liver disease (CMS/HCC) (Primary Dx) 04/03/2025 8:00 AM EDT Office Visit [facility] [address] [address] Nj Johns MD End-stage liver disease (CMS/HCC) (Primary Dx); Metabolic syndrome; Other ascites; Hepatic encephalopathy (CMS/HCC); Elevated alkaline phosphatase level 04/03/2025 Travel 04/02/2025 Travel 03/28/2025 Telephone [facility] [address] [address] Sharri Almonte 03/28/2025 Telephone [facility] [address] [address] Sharri Almonte Appointment (Confirmation and reminders) 03/28/2025 [facility] [address] [place] [address] Laquita Corral PA Thrombocytopenia (CMS/HCC) (Primary Dx) 03/21/2025 Telephone [facility] [address] [address] Sharri Almonte Appointment 03/21/2025 Telephone [facility] [address] [address] Sharri Almonte Referral - Liver Txp 03/21/2025 [facility] [address] [place] [address] El Agarwal APRN Cirrhosis of liver without ascites, unspecified hepatic cirrhosis type (CMS/HCC) (Primary Dx) 03/08/2025 8:00 AM EDT Consult [facility] [address], [address] [place] [address] Claire Davidson MD Lumbosacral radiculopathy (Primary Dx) 03/08/2025 Travel 03/04/2025 [facility] [address] [place] [address] Laquita Corral PA Neuropathic pain, leg, bilateral (Primary Dx); HTN, goal to be determined 02/28/2025 Community Orders [facility] [address] [place] [address] Laquita Corral PA 02/20/2025 Orders Only External Location [address] [place] [address] Provider, External 02/12/2025 Orders Only External Location [address] [place] [address] Provider, External 02/12/2025 Orders Only External Location [address] [place] [address] Provider, External from Last 3 Months Immunizations [...] PM EST Appointment [facility] [address] [place] [address] 05/18/2025 9:15 AM EST Clinical Support [facility] [address] [place] [address] 05/18/2025 9:30 AM EST Clinical Support [facility] [address] [facility] [address] [place] [address] [facility] - CLINICAL NUTRITION [address] [place] [address] 05/18/2025 10:50 AM EST Office Visit [facility] [address] [place] [address] Nj Johns MD [address] [place] [address] 05/18/2025 11:30 AM EST Social Work [facility] [address] [place] [address] Thuy Dasilva, [place] [address] 05/18/2025 1:00 PM EST Appointment [facility] [address] [place] [address] 05/18/2025 1:30 PM EST Appointment [facility] [address], [address] [place] [address] 05/18/2025 1:30 PM EST Appointment [facility] [address], 1[address] [place] [address] 05/18/2025 2:00 PM EST Pharmacist Visit [facility] [address] [place] [address] 05/22/2025 11:15 AM EST Consult [facility] [address], 1[address] [place] [address] Nigel Recinos MD [address] [facility] [address] [place] [address] 05/25/2025 11:30 AM EST Appointment [facility] [address] [place] [phone] 05/25/2025 2:00 PM EST Appointment [facility] Pulmonary Function Testing [address] [place] [phone] 05/25/2025 3:30 PM EST Appointment Cardiac Imaging [address] [place] [address] 05/31/2025 4:30 PM EST Appointment [facility] [address] [facility] [address] [place] [address] 06/01/2025 11:00 AM EST Office Visit [facility] Mastic Vader [address], [address] [place] [address] Shahla Juana Valdovinos WEATHER STRIP INSTALLER [address] [place] [address] 06/20/2025 10:30 AM EST Procedure Visit [facility] [address], [address] [place] [address] Claire Davidson MD [address] [place] [address] 06/21/2025 2:00 PM EST Office Visit [facility] [address], [address] [place] [address] Calire Davidson MD [address] [place] [address] Health Maintenance Due Date Last Done Comments [...] Hep B Twinrix 3-dose series) 10/11/2020 09/13/2020 [id number] Vaccine (2 season) 2025 12/24/2020 [facility]-Influenza Vaccine (#1) 2025 [...] Additional history exists [facility]-Obesity Intervention Completed 025, 04/03/2025, 03/08/2025, Additional history exists HPV Vaccines Aged Out [...] Procedure Name Priority Date/Time Associated Diagnosis Comments COMPREHENSIVE METABOLIC PANEL, PLASMA Routine 04/19/2025 CBC W/O DIFFERENTIAL Routine 04/19/2025 COMPREHENSIVE METABOLIC PANEL, PLASMA Routine 04/11/2025 CBC W/O DIFFERENTIAL Routine 04/11/2025 PROTHROMBIN TIME(PT) / INR Routine 04/11/2025 ANTI-SP100 AND ANTI-GP210 ANTIBODIES, IGG (SO) Routine 04/03/2025 10:11 AM EDT Routine general medical examination at a [facility] facility MITOCHONDRIAL M2 ANTIBODY, IGG (CRISTAL)(SO) Routine 04/03/2025 10:11 AM EDT End-stage liver disease (CMS/HCC) IG PROFILE Routine 04/03/2025 10:11 AM EDT End-stage liver disease (CMS/HCC) SMOOTH MUSCLE ANTIBODY, IGG TITER (SO) Routine 04/03/2025 10:11 AM EDT End-stage liver disease (CMS/HCC) ALPHA 1 ANTITRYPSIN PHENOTYPE(INCLUDES [id number])SO (SO) Routine 04/03/2025 10:11 AM EDT End-stage [...] Recently Relevant to Health Maintenance Results * CBC W/O Differential (04/19/2025) Only the most recent of3 resultswithin the time period is included. External WBC 8.8 External Red Blood Cell (RBC) 3.69 External Hemoglobin (Hgb) 12.80 External Hematocrit (Hct) 36.9 External Platelet Count (Plt) 98 Blood Venous blood specimen / Unknown 04/19/2025 Result [facility] Provider LAB BLOOD ORDERABLES Final R esult * Comprehensive Metabolic Panel, Plasma (04/19/2025) Only the most recent of3 resultswithin the time period is included. External Glucose 100 External BUN 33 External [...] Venous blood specimen / Unknown 04/19/2025 Result [facility] Provider LAB BLOOD ORDERABLES Final R esult * Prothrombin Time/INR (04/11/2025) Only the most recent of3 resultswithin the time period is included. External Prothrombin Time (PT) 13.1 External INR - Internormal Ratio 1.2 Blood Venous blood specimen / Unknown 04/11/2025 us Historical Provider LAB BLOOD ORDERABLES Final R esult * ANTI-SP100 AND ANTI-GP210 ANTIBODIES, IGG (SO) (04/03/2025 10:11 AM EDT) ANTI-GP210 ANTIBODY, IGG 1.3 0.0 - 24.9 Units 04/05/2025 11:22 PM EDT [facility] ([place]) ANTI-SP100 ANTIBODY, IGG 1.4 0.0 - 24.9 Units 04/05/2025 11:22 PM EDT [facility] ([place]) Serum 04/03/2025 10:1 1 AM EDT 04/03/2025 2:14 PM EDT Narrative [facility] (GO) - 04/05/2025 11:22 PM EDT REFERENCE INTERVAL: [...] does not rule out PBC. Performed By: [facility] [address] [place] [id number] Acid Splicer: Kiel Mayfield MD, PhD CLIA Number: [id number] Nj Johns MD LAB REF LAB BLOOD AND FLUID OR D Final Result Performing Organization Address [facility] de Phone Number [facility] ([facility] [address] [place] [address] * [id number] Enzyme Conc and Phenotype (SO) (04/03/2025 10:11 AM EDT) ALPHA 1 ANTITRYPSIN 131 90 - 200 mg/dL 04/05/2025 10:42 PM EDT [facility] A1A Phenotype M1Z 04/05/2025 10:42 PM EDT [facility] ([facility] Blood Venous blood specimen / Unknown Venipuncture / Unknown 04/03/2025 10:11 AM EDT 04/03/2025 10:41 AM EDT Narrative [facility] ([facility] - 04/05/2025 10:42 PM EDT To convert [...] within the previous 21 days. Performed By: [facility] [address] [place] [id number] Acid Splicer: Kiel Mayfield MD, PhD CLIA Number: [id number] Nj Johns MD LAB BLOOD ORDERABLES Final Res ult Performing Organization Address City/[facility]/ZIP Co de Phone Number [facility] ([facility]) [address] [place] [address] * (ABNORMAL) IG Profile (04/03/2025 10:11 AM EDT) IGA 838(H) 75 - 400 mg/dL 04/03/2025 11:38 AM EDT [facility] IGG 1,747(H) 720 - 1,589 mg/dL 04/03/2025 11:38 AM EDT [facility] IGM 197 35 - 225 mg/dL 04/03/2025 11:38 AM EDT [facility] Blood Venous blood specimen / Unknown Venipuncture / Unknown 04/03/2025 10:11 AM EDT 04/03/2025 10:41 AM EDT Nj Johns MD LAB BLOOD ORDERABLES Final Res ult [facility] [address] [place] [address] * (ABNORMAL) Anti-smooth muscle antibody, IgG (04/03/2025 10:11 AM EDT) Smooth Muscle Ab, IgG Titer 1:20(H) <1:20 04/05/2025 8:18 PM EDT [employer] (GO) Blood Venous blood specimen / Unknown Venipuncture / Unknown 04/03/2025 10:11 AM EDT 04/03/2025 10:41 AM EDT Narrative [facility] NICHOLAS) - 04/05/2025 8:18 PM EDT INTERPRETIVE INFORMATION: Smooth Muscle Ab, IgG Titer Less than 1:20 ........ Negative - No antibody detected. 1:20 - 1:80 .......... Weak Positive - Suggest repeat in two to three weeks with fresh specimen. 1:160 or greater ...... Positive - Suggestive of autoimmune hepatitis or chronic active hepatitis. Performed By: [facility] [address] [place] [id number] Acid Splicer: Kiel Mayfield MD, PhD CLIA Number: [id number] Nj Johns MD LAB BLOOD ORDERABLES Final Res ult [employer]) [address] [place] [address] * (ABNORMAL) Mitochondrial M2 Antibody, IgG (CRISTAL) (04/03/2025 10:11 AM EDT) MITOCHONDRIA M2 AB IGG 29.3(H) 0.0 - 24.9 Units 04/05/2025 11:23 AM EDT [employer]) Serum Venous blood specimen / Unknown 04/03/2025 10:11 AM EDT 04/03/2025 10:41 AM EDT Narrative ZAHRA PETERSON) - 04/05/2025 11:23 AM EDT REFERENCE INTERVAL: [...] does not rule out PBC. Performed By: [facility] [address] [place] [address] Acid Splicer: Kiel Mayfield MD, PhD CLIA Number: [id number] us Nj Johns MD LAB BLOOD ORDERABLES Final Res ult [facility] NICHOLAS) [address] [place], [place] [id number] * (ABNORMAL) Pain Management, Quantitative Urine Drug Testing (04/03/2025 8:09 AM EDT) [place] Alprazolam <20 <20 ng/mL 04/06 5:18 PM EDT [facility] [place] Midazolam <20 <20 ng/mL 2024 5:18 PM EDT [facility] [place] Triazolam <20 <20 ng/mL 2024 5:18 PM EDT [facility] Alprazolam <10 <10 ng/mL 04/06/2025 5:18 PM EDT [facility] Aminoclonazepam <20 <20 ng/mL 5:18 PM EDT [facility] Amphetamine <50 <50 ng/mL 04/06/2025 5:18 PM EDT [facility] Benzoylecgonine <50 <50 ng/mL 5:18 PM EDT [facility] Buprenorphine <10 <10 ng/mL 04/06/2025 5:18 PM EDT [facility] Buprenorphine Glucuronide <50 <50 ng/mL 04/06/2025 5:18 PM EDT [facility] Butalbital <50 <50 ng/mL 04/06/2025 5:18 PM EDT [facility] 9 Carboxy THC <10 <10 ng/mL 04/06/2025 5:18 PM EDT [facility] 9 Carboxy THC Glucuronide <25 <25 ng/mL 04/06/2025 5:18 PM EDT [facility] Clonazepam <10 <10 ng/mL 04/06/2025 5:18 PM EDT [facility] Codeine <50 <50 ng/mL 04/06/2025 5:18 PM EDT [facility] Codeine Glucuronide <50 <50 ng/mL 04/06 5:18 PM EDT [facility] Cyclobenzaprine <50 <50 ng/mL 5:18 PM EDT [facility] Desmethyl Tramadol <50 <50 ng/mL 2024 5:18 PM EDT [facility] Diazepam <10 <10 ng/mL 04/06/2025 5:18 PM EDT [facility] EDDP - Methadone Metabolite <50 <50 ng/mL 04/06/2025 5:18 PM EDT [facility] Fentanyl <1 <1 ng/mL 04/06/2025 5:18 PM EDT [facility] Hydrocodone <50 <50 ng/mL 04/06/2025 5:18 PM EDT [facility] Hydromorphone <50 <50 ng/mL 04/06/2025 5:18 PM EDT [facility] Hydromorphone Glucuronide <50 <50 ng/mL 04/06/2025 5:18 PM EDT [facility] Lorazepam <20 <20 ng/mL 04/06/2025 5:18 PM EDT [facility] Lorazepam Glucuronide <50 <50 ng/mL 04/06/2025 5:18 PM EDT [facility] MDA <50 <50 ng/mL 04/06/2025 5:18 PM EDT [facility] MDMA <50 <50 ng/mL 04/06/2025 5:18 PM EDT [facility] Meperidine <50 <50 ng/mL 04/06/2025 5:18 PM EDT [facility] Methadone <50 <50 ng/mL 04/06/2025 5:18 PM EDT [facility] Methamphetamine <50 <50 ng/mL 5:18 PM EDT [facility] Methylphenidate <50 <50 ng/mL 5:18 PM EDT [facility] 6 Monoacetyl morphine <10 <10 ng/mL 04/06/2025 5:18 PM EDT [facility] Morphine <50 <50 ng/mL 04/06/2025 5:18 PM EDT [facility] Morphine Glucuronide <50 <50 ng/mL 03/13 5:18 PM EDT [facility] Naloxone <50 <50 ng/mL 04/06/2025 5:18 PM EDT [facility] Naloxone Glucuronide <50 <50 ng/mL 03/13 5:18 PM EDT [facility] Norbuprenorphine <10 <10 ng/mL 04/06/20 5:18 PM EDT [facility] Norbuprenorphine Glucuronide <50 <50 ng/mL 04/06/2025 5:18 PM EDT [facility] Nordiazepam <20 <20 ng/mL 04/06/2025 5:18 PM EDT [facility] Norfentanyl <2 <2 ng/mL 04/06/2025 5:18 PM EDT [facility] Normeperidine <50 <50 ng/mL 04/06/2025 5:18 PM EDT [facility] PCP Quant, Ur <50 <50 ng/mL 04/06/2025 5:18 PM EDT [facility] Phenobarbital <50 <50 ng/mL 04/06/2025 5:18 PM EDT [facility] Oxazepam <20 <20 ng/mL 04/06/2025 5:18 PM EDT [facility] Oxazepam Glucuronide <50 <50 ng/mL 03/13 5:18 PM EDT [facility] Oxycodone 273(H) <50 ng/mL 04/06/2025 5:18 PM EDT [facility] Oxymorphone <50 <50 ng/mL 04/06/2025 5:18 PM EDT [facility] Oxymorphone Glucuronide 64(H) <50 ng/mL 04/06/2025 5:18 PM EDT [facility] Secobarbital <50 <50 ng/mL 04/06/2025 5:18 PM EDT [facility] Tramadol <50 <50 ng/mL 04/06/2025 5:18 PM EDT [facility] Temazepam <20 <20 ng/mL 04/06/2025 5:18 PM EDT [facility] Temazepam Glucuronide <50 <50 ng/mL 04/06/2025 5:18 PM EDT [facility] Urine Urine specimen obtained by clean catch procedure / Unknown Non-blood Collection / Unknown 04/03/2025 8:09 AM EDT 04/03/2025 8:43 AM EDT Narrative [facility] - 04/06/2025 5:18 PM EDT [...] laboratory. Test performed by LC-MS/MS at the [facility]. This test was developed and its performance characteristics determined by [facility]. It has not been cleared or approved by the FDA. The laboratory is regulated under CLIA as qualified to perform high-complexity testing. This test is used for clinical purposes. Asael Esteves MD LAB URINE ORDERABLES Final Resul t Performing Organization Address [facility] de Phone Number [facility] [address] [place] [address] * Alcohol Urine (04/03/2025 8:09 AM EDT) Alcohol Urine Negative Negative 04/03/2025 10:25 AM EDT [facility] Urine Urine specimen obtained by clean catch procedure / Unknown Non-blood Collection / Unknown 04/03/2025 8:09 AM EDT 04/03/2025 8:43 AM EDT Narrative [facility] - 04/03/2025 10:25 AM EDT The correlation between urine and serum ethanol concentration is highly variable. Test performed by Gas Chromatography at the [facility]. This test was developed and its performance characteristics determined by [facility]. It has not been cleared or approved by the FDA.The laboratory is regulated under CLIA as qualified to perform high-complexity testing. This test is used for clinical purposes only. The correlation between urine and serum ethanol concentration is highly variable. Test performed by Gas Chromatography at the [facility]. This test was developed and its performance characteristics determined by [facility]. It has not been cleared or approved by the FDA.The laboratory is regulated under CLIA as qualified to perform high-complexity testing. This test is used for clinical purposes only. Asael Esteves MD LAB URINE ORDERABLES Final Resul t Performing Organization Address [facility] Co de Phone Number [facility] [address] [place] [address] * (ABNORMAL) Comprehensive Urine Drug Screening, Qualitative Assay, >= 27 Drug Classes (58:09 AM EDT) Acetaminophen Negative Negative 04/04/2025 8:17 AM EDT [facility] Alprazolam Negative Negative 04/04/2025 8:17 AM EDT [facility] Amantadine Negative Negative 04/04/2025 8:17 AM EDT [facility] Amitriptyline Negative Negative 04/04/2025 8:17 AM EDT [facility] Amphetamine Negative Negative 04/04/2025 8:17 AM EDT [facility] Atenolol Negative Negative 04/04/2025 8:17 AM EDT [facility] Benzoylecgonine Negative Negative 8:17 AM EDT [facility] Bisoprolol Negative Negative 04/04/2025 8:17 AM EDT [facility] Bupropion Negative Negative 04/04/2025 8:17 AM EDT [facility] Butalbital Negative Negative 04/04/2025 8:17 AM EDT [facility] Carbamazepine Negative Negative 04/04/2025 8:17 AM EDT [facility] Carisoprodol Negative Negative 04/04/2025 8:17 AM EDT [facility] Chlorpheniramine Negative Negative 04/04/20 8:17 AM EDT [facility] Citalopram Negative Negative 04/04/2025 8:17 AM EDT [facility] Clindamycin Negative Negative 04/04/2025 8:17 AM EDT [facility] Clonidine Negative Negative 04/04/2025 8:17 AM EDT [facility] Clopidogrel / Ticlopidine Negative Negative 04/04/2025 8:17 AM EDT [facility] Cocaethylene Negative Negative 04/04/2025 8:17 AM EDT [facility] Cocaine Negative Negative 04/04/2025 8:17 AM EDT [facility] Codeine Negative Negative 04/04/2025 8:17 AM EDT [facility] Cyclobenzaprine Positive(A) Negative 04/04/20 8:17 AM EDT [facility] Desvenlafaxine Negative Negative 04/04/2025 8:17 AM EDT [facility] Dextromethorphan Negative Negative 04/04/20 8:17 AM EDT [facility] Diazepam Negative Negative 04/04/2025 8:17 AM EDT [facility] Diltiazem Negative Negative 04/04/2025 8:17 AM EDT [facility] Diphenhydramine Negative Negative 8:17 AM EDT [facility] Doxepine Negative Negative 04/04/2025 8:17 AM EDT [facility] Doxylamine Negative Negative 04/04/2025 8:17 AM EDT [facility] EDDP-Methadone metabolite Negative Negative 04/04/2025 8:17 AM EDT [facility] Fentanyl Negative Negative 04/04/2025 8:17 AM EDT [facility] Fluconazole Positive(A) Negative 04/04/2025 8:17 AM EDT [facility] Fluoxetine Negative Negative 04/04/2025 8:17 AM EDT [facility] Guaifenesin Negative Negative 04/04/2025 8:17 AM EDT [facility] Haloperidol Negative Negative 04/04/2025 8:17 AM EDT [facility] Heroin/6-FROYLAN Negative Negative 04/04/2025 8:17 AM EDT [facility] Hydrocodone Negative Negative 04/04/2025 8:17 AM EDT [facility] Hydroxyzine / Cetirizine metabolite Negative Negative 04/04/2025 8:17 AM EDT [facility] Ibuprofen Negative Negative 04/04/2025 8:17 AM EDT [facility] Imipramine Negative Negative 04/04/2025 8:17 AM EDT [facility] Ketamine Negative Negative 04/04/2025 8:17 AM EDT [facility] Labetolol Negative Negative 04/04/2025 8:17 AM EDT [facility] Lamotrigine Negative Negative 04/04/2025 8:17 AM EDT [facility] Levetiracetam Negative Negative 04/04/2025 8:17 AM EDT [facility] Lidocaine Negative Negative 04/04/2025 8:17 AM EDT [facility] MDA Negative Negative 04/04/2025 8:17 AM EDT [facility] MDMA Negative Negative 04/04/2025 8:17 AM EDT [facility] Memantine Negative Negative 04/04/2025 8:17 AM EDT [facility] Meperidine Negative Negative 04/04/2025 8:17 AM EDT [facility] Meprobamate Negative Negative 04/04/2025 8:17 AM EDT [facility] Metaxalone Negative Negative 04/04/2025 8:17 AM EDT [facility] Methamphetamine Negative Negative 8:17 AM EDT [facility] Methocarbamol Negative Negative 04/04/2025 8:17 AM EDT [facility] Methylecgonine Negative Negative 04/04/2025 8:17 AM EDT [facility] Metoclopramide Negative Negative 04/04/2025 8:17 AM EDT [facility] Metoprolol Positive(A) Negative 04/04/2025 8:17 AM EDT [facility] Metronidazole Negative Negative 04/04/2025 8:17 AM EDT [facility] Midazolam Negative Negative 04/04/2025 8:17 AM EDT [facility] Midazolam Metabolite Negative Negative 04/04/2025 8:17 AM EDT [facility] Mirtazapine Negative Negative 04/04/2025 8:17 AM EDT [facility] Misc Test Result Negative Negative 04/04/20 8:17 AM EDT [facility] Naproxen Negative Negative 04/04/2025 8:17 AM EDT [facility] Nefazodone Negative Negative 04/04/2025 8:17 AM EDT [facility] Norfentanyl Negative Negative 04/04/2025 8:17 AM EDT [facility] Nortriptyline Negative Negative 04/04/2025 8:17 AM EDT [facility] Ordanstron Negative Negative 04/04/2025 8:17 AM EDT [facility] Oxcarbazepine Negative Negative 04/04/2025 8:17 AM EDT [facility] Oxycodone Positive(A) Negative 04/04/2025 8:17 AM EDT [facility] Paroxethine Negative Negative 04/04/2025 8:17 AM EDT [facility] Phenobarbital Negative Negative 04/04/2025 8:17 AM EDT [facility] Phentermine Negative Negative 04/04/2025 8:17 AM EDT [facility] Phenytoin Negative Negative 04/04/2025 8:17 AM EDT [facility] Primidone Negative Negative 04/04/2025 8:17 AM EDT [facility] Promethazine Negative Negative 04/04/2025 8:17 AM EDT [facility] Propofol Negative Negative 04/04/2025 8:17 AM EDT [facility] Propranolol Negative Negative 04/04/2025 8:17 AM EDT [facility] Quetiapine Negative Negative 04/04/2025 8:17 AM EDT [facility] Quinine Negative Negative 04/04/2025 8:17 AM EDT [facility] Rantidine Negative Negative 04/04/2025 8:17 AM EDT [facility] Sertraline Negative Negative 04/04/2025 8:17 AM EDT [facility] Spironolactone Positive(A) Negative 8:17 AM EDT [facility] Tizanidine Negative Negative 04/04/2025 8:17 AM EDT [facility] Topiramate Negative Negative 04/04/2025 8:17 AM EDT [facility] Tramadol Negative Negative 04/04/2025 8:17 AM EDT [facility] Trazadone/ Trazadone metabolite Negative Negative 04/04/2025 8:17 AM EDT [facility] Trimethoprim Negative Negative 04/04/2025 8:17 AM EDT [facility] Valproic Acid Negative Negative 04/04/2025 8:17 AM EDT [facility] Venlafaxine Negative Negative 04/04/2025 8:17 AM EDT [facility] Verapamil Negative Negative 04/04/2025 8:17 AM EDT [facility] Zolpidem Negative Negative 04/04/2025 8:17 AM EDT [facility] Xylazine Negative Negative 04/04/2025 8:17 AM EDT [facility] Urine Urine specimen obtained by clean catch procedure / Unknown Non-blood Collection / Unknown 04/03/2025 8:09 AM EDT 04/03/2025 8:43 AM EDT us Asael Esteves MD LAB URINE ORDERABLES Final Resul t [facility] [address] [place] [address] * HEPATITIS B SURFACE ANTIBODY, QUANTITATIVE (04/03/2025 6:38 AM EDT) Hepatitis B Surface Antibody, Quantitative <8.00 NonReactiv e: <8, Grayzone: 8 - <12, Reactive: >= 12 mIU/mL 04/03/2025 8:47 AM EDT [facility] Comment: Nonreactive. Individual is considered not immune to HBV infection. Blood Venous blood specimen / Unknown Venipuncture / Unknown 04/03/2025 6:38 AM EDT 04/03/2025 7:02 AM EDT us Asael Esteves MD LAB BLOOD ORDERABLES Final Resul t Performing Organization Address [facility] Co de Phone Number [facility] [address] [place] [address] * Alpha fetoprotein, serum (04/03/2025 6:38 AM EDT) Alpha Fetoprotein, Serum 6.5 <10.0 ng/mL 04/03/2025 7:38 AM EDT [facility] Blood Venous blood specimen / Unknown Venipuncture / Unknown 04/03/2025 6:38 AM EDT 04/03/2025 7:02 AM EDT Narrative [facility] - 04/03/2025 7:38 AM EDT Performed by [employer] electrochemiluminescent immunoassay which is traceable to the 1st AFP IRP WHO Reference standard 72/255. Results obtained with different test methods or kits cannot be used interchangeably. us Asael Esteves MD LAB BLOOD ORDERABLES Final Resul t Performing Organization Address City/[facility]/ZIP Co de Phone Number [facility] [address] [place] [address] * Hepatitis A Antibody IgG (04/03/2025 6:38 AM EDT) Hepatitis A Antibody IgG Negative Negative 04/03/2025 8:47 AM EDT [facility] Blood Venous blood specimen / Unknown Venipuncture / Unknown 04/03/2025 6:38 AM EDT 04/03/2025 7:02 AM EDT us Asael Esteves MD LAB BLOOD ORDERABLES Final Resul t Performing Organization Address City/[facility] Co de Phone Number [facility] [address] [place] [address] * Hepatitis C Antibody (04/03/2025 6:38 AM EDT) Hepatitis C Antibody Negative Negative 04/03/2025 7:44 AM EDT [facility] Blood Venous blood specimen / Unknown Venipuncture / Unknown 04/03/2025 6:38 AM EDT 04/03/2025 7:02 AM EDT us Asael Esteves MD LAB BLOOD ORDERABLES Final Resul t Performing Organization Address [facility] Phone Number [facility] [address] [place] [address] * (ABNORMAL) Nicotine Cotinine Metabolite (04/03/2025 6:38 AM EDT) NICOTINE <5 <5 ng/mL 04/04/2025 9:5 4 AM EDT [facility] Cotinine 32(H) <5 ng/mL 04/04/2025 9:5 4 AM EDT [facility] Blood Venous blood specimen / Unknown Venipuncture / Unknown 04/03/2025 6:38 AM EDT 04/03/2025 7:02 AM EDT Narrative [facility] - 04/04/2025 9:54 AM EDT Testing performed by LC-MS/MS at the [facility]. This test was developed and its performance characteristics determined by [facility]. This assay has not been cleared by the FDA. The laboratory is regulated under CLIA as qualified to perform high-complexity testing. This test is used for clinical purposes. us Asael Esteves MD LAB BLOOD ORDERABLES Final Resul t Performing Organization Address City/[facility] Co de Phone Number [facility] [address] [place] [address] * ABO/Rh (04/03/2025 6:38 AM EDT) ABO/Rh A Positive 04/03/2025 8:00 AM EDT BLOOD BANK Blood Venous blood specimen / Unknown Venipuncture / Unknown 04/03/2025 6:38 AM EDT 04/03/2025 8:00 AM EDT Asael Esteves MD LAB BLOOD BANK TEST ORDERABLES F inal Result BLOOD BANK [address] * Hepatitis B Surface Antigen (04/03/2025 6:38 AM EDT) Hepatitis B Surf Antigen Negative Negative 04/03/2025 8:47 AM EDT [facility] Blood Venous blood specimen / Unknown Venipuncture / Unknown 04/03/2025 6:38 AM EDT 04/03/2025 7:02 AM EDT Asael Esteves MD LAB BLOOD ORDERABLES Final Resul t [facility] [address] [place] [address] * Creatinine, Plasma (02/26/2025) External Creatinine Blood [...] Blood Venous blood specimen / Unknown 02/26/2025 [facility] Provider LAB BLOOD ORDERABLES Final R [...] <6.0% Children and Adolescents <7.5% . Source: [place] [employer]. Standards of medical care in diabetes, 2017. Diabetes Care.2017:40 (suppl 1):S1-S135. . HbA1c assay performed by an ion-exchange chromatography method that is certified traceable to the DCCT. 12/13/2020 2:13 PM EDT 12/13/2020 3:[address] [facility] Aki Gao APRN, DNP LAB BLOOD ORDERABLES Final Result Performing Organization Address City/[facility] Co de Phone Number [facility] * COLONOSCOPY (06/18/2020) Anatomical Region Laterality Modality Endoscopy Narrative 06/18/2020 Ordered by an unspecified provider. [facility] Provider GI PROCEDURE ORDERABLES Jennifer valdovinos Result * HIV 1 & 2 Antibody/Antigen Screen (09/08/2019 1:59 PM EST) HIV 1 Result NONREACTIVE Screening for HIV 1 and 2 antibodies is NONREACTIVE. No confirmatory testing is required. [facility] 09/08/2019 1:59 PM EST 09/08/2019 2:32 PM EST Dori Aki Gao APRN, DNP LAB BLOOD ORDERABLES Final Result Performing Organization Address City/[facility] de Phone Number [facility] from Last 3 Months or Most Recently Relevant to Health Maintenance Insurance [facility] MEDICAID [employer] MEDICAID Care Teams Programmer Numerical Control Relationship Specialty Start Date End Date Trevor Rolon DO [address] [place] [address] PCP - General 11/22/20 Mc Grant DO [address] [place] [address] Referring Physician Gastroenterology 02/21/24 El Agarwal APRN [address] [place] [address] Referring Physician Gastroenterology 03/21/25
--- OUTSIDE RECORDS SUMMARY | 2025-05-04 09:23 | XMS_ITS | Encounter Summary ---
Author Organization [facility] nter Address [address] [place] [address] Care Team Providers Care Model Maker Name Role Phone Trevor Rolon DO Primary Care Provider Lucy Christopher DO Unavailable Reason for Visit * Reason Comments Med Refill Encounter Details Date Type Department Care Team (Late st Contact Info) Description 10/05/2022 Refill [facility] GASTROENTEROLOGY PRACT[facility] [address] 2nd [place] [address] Mc Grant DO [address] [place] [address] Encephalopathy, hepatic Social History Tobacco [...] Info) Description 05/07/2025 3:00 PM EDT Appointment [facility] MAMMOGRAPHY SERVICES BLDG D [address], [place] [address] 06/18/2025 10:30 AM EST Office Visit [facility] GASTRO[facility]OLOGY [facility] [address] 2nd [place] [address] 06/27/2025 10:00 AM EST Office Visit [facility] SLEEP LAB PRACTICE [address], [place] Bldg [place] [phone] Demario Silva DO [address] [place] [address] 08/16/2025 10:00 AM EST Office Visit [facility] ENDOCRINOLOGY [facility]ACTICE [address] 8th [place] [address] Brigitte Mahoney NP [address] [place] [address] 09/18/2025 1:30 PM EDT Office Visit [facility] RHEUMATOLOGY PRACTICE [address] 8th [place] [address] Suman Treviño MD [address] [facility] [place] [address] 12/13/2025 1:15 PM EDT Office Visit [facility] OBGYN PRACT[facility] [address] 7th [place] [address] Janice Woodward, CLAU [address] [place] [address] documented as of this encounter Visit Diagnoses Diagnosis Encephalopathy, hepatic Hepatic encephalopathy documented in this encounter Additional Health Concerns Assessment Noted Time PHQ-9 Depression Total Score: 0 07/24/19 23 3:00 PM EST documented as of this encounter Care Teams Model Maker Relationship Specialty Start Date End Date Trevor Rolon DO [address] [facility] [address] [place] [address] PCP - General Lucy Christopher DO [address] Bld[address] [place] [address] Consulting Physician Oncology 10/17/24 documented as of this encounter
--- OUTSIDE RECORDS SUMMARY | 2025-05-04 09:24 | XMS_ITS | Encounter Summary ---
Author Organization [facility] nter Address [address] [place] [address] Care Team Providers Care Set Up Mechanic Coating Machines Name Role Phone Trevor Rolon DO Primary Care Provider Lucy Christopher DO Unavailable Encounter Details Date Type Department Care Team (Late st Contact Info) Description 02/25/2023 Orders Only [facility] [address], 8[address] Clinic [place] [phone] Brigitte Mahoney, CLAU [address] [place] [address] Social History Tobacco Use Types [...] Info) Description 05/07/2025 3:[address] PM EDT Appointment [facility] MAMMOGRAPHY SERVICES [facility] D [address] [facility], [facility] [place] [address] 06/18/2025 10:30 AM EST Office Visit [facility] [address] 2nd [place] [address] 06/27/2025 10:00 AM EST Office Visit [facility]EP [facility] [address] [place] [address] Demario Silva DO [address] [place] [address] 08/16/2025 10:00 AM EST Office Visit [facility] [address], 8[address] Floor [facility] [address] Brigitte Mahoney NP [address] Bldg [place] [address] 09/18/2025 1:30 PM EDT Office Visit [facility] RHEUMATOLOGY PRACTICE [address], 8th [place] [address] Suman Treviño MD [address] [place] [address] 12/13/2025 1:15 PM EDT Office Visit [facility] OBGYN PRACT[facility] [address], 7[address] Floor [facility] [place] [place] [address] Janice Woodward NP [address] [place] [address] documented as of this encounter Visit Diagnoses Not on filedocumented in this encounter Additional Health Concerns Assessment Noted Time PHQ-9 Depression Total Score: 0 07/24/19 23 3:00 PM EST documented as of this encounter Care Teams Set Up Mechanic Coating Machines Relationship Specialty Start Date End Date Trevor Rolon DO [address] [facility] [address] [place] [address] PCP - General Lucy Christopher DO [address] [place] [address] Consulting Physician Oncology 10/17/24 documented as of this encounter
--- OUTSIDE RECORDS SUMMARY | 2025-05-04 09:24 | XMS_ITS | Encounter Summary ---
Author Organization [facility] nter Address [address] [place] [address] Care Team Providers Care Grain Scooper Name Role Phone Trevor Rolon DO Primary Care Provider Lucy Christopher DO Unavailable Encounter Details Date Type Department Care Team (Late st Contact Info) Description 01/08/2023 Orders Only [facility] [address] 8[address] Floor Clinic [place] [phone] Brigitte Mahoney, CLAU [address] [place] [address] Social History Tobacco Use Types [...] Info) Description 05/07/2025 3:00 PM EDT Appointment [facility] MAMMOGRAPHY SERVICES [facility] D [address] [facility], [facility] [place] [address] 06/18/2025 10:30 AM EST Office Visit [facility] [address], 2nd [place] [address] 06/27/2025 10:00 AM EST Office Visit [facility] [address] [place] [address] Demario Silva DO [address] [place] [address] 08/16/2025 10:00 AM EST Office Visit [facility] [address], 8th Floor [facility] [place] [address] Brigitte Mahoney NP [address] Bld[place] [address] 09/18/2025 1:30 PM EDT Office Visit [facility] RHEUMATOLOGY PRACTICE [address], 8th [place] [address] Suman Treviño MD [address] [place] [address] 12/13/2025 1:15 PM EDT Office Visit [facility] OBGYN PRACTICE [address], 7[address] [place] [address] Janice Woodward NP [address] [place] [address] documented as of this encounter Visit Diagnoses Not on filedocumented in this encounter Additional Health Concerns Assessment Noted Time PHQ-9 Depression Total Score: 0 07/24/19 23 3:00 PM EST documented as of this encounter Care Teams Grain Scooper Relationship Specialty Start Date End Date Trevor Rolon DO [address] [facility] [address] [place] [address] PCP - General Lucy Christopher DO [address] [place] [address] Consulting Physician Oncology 10/17/24 documented as of this encounter
--- OUTSIDE RECORDS SUMMARY | 2025-05-04 09:24 | XMS_ITS | Clinical Summary ---
Author Organization [facility] Address [address] [place] [address] Care Team Providers Care Data Processing Consultant Name Role Phone Trevor Rolon DO [...] 04/09/2020 Medications ergocalciferol (Vitamin D-2) 1.25 MG (11349 UT) capsule Take 1 capsule (1.25 mg) [...] mouth in the morning. 04/27/20 23 Active Lifitegrast (Xiidra) 5 % solutionIndication s:Keratoconjunctiv itis sicca of both eyes not specified as Sjogren's INSTILL 1 DROP IN EACH EYE TWO TIMES A DAY 180 each 4 10/01/19 24 Active Diclofenac Sodium (Voltaren) 1 % gel [...] days. Use every 10 days 3 each 08/16/19 25 026 Active empagliflozin (Jardiance) 25 MG Take 1 tablet (25 mg) by mouth in the morning. 30 tablet 08/16/19 25 Active Semaglutide, 1 MG/DOSE, (Ozempic, 1 MG/DOSE,) 4 MG/3ML solution pen-injector Inject 1 mg under the skin 1 (one) time per week. Take 1 mg each week 3 mL 08/16/19 25 Active Insulin Pen Needle (Pen Carmel) 32G X 4 MM miscIndications:Ty pe 2 diabetes mellitus with hyperglycemia, with long-term current use of insulin Use 4 per day 100 each 3 09/01/19 25 Active glucose blood (OneTouch Verio) test stripIndications:E 11.65 Use 3 per day. Code E11.65 100 each 10/20/19 25 Active ondansetron ODT (Zofran-ODT) 8 MG disintegrating [...] or chew. Active pregabalin (Lyrica) 25 MG capsuleIndications :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,Restless leg syndrome Take 1 capsule (25 mg) by mouth in the morning and at bedtime. 60 capsule 2 01/23/20 25 Active Rimegepant Sulfate (Nurtec) 75 MG tablet dispersibleIndicat ions:Migraine Take 1 tab PO at the onset of a migraine. Do not exceed more than 1 tab in 24 hours. 8 tablet 5 01/23/20 25 Active insulin aspart (NovoLOG FLEXPEN) 100 UNIT/ML penIndications:Typ e 2 diabetes mellitus with hyperglycemia, with long-term current use of insulin Take 5 units at breakfast, lunch, and supper if premeal BS >150. Max daily dose 50 units 15 mL 3 02/27/20 25 Active Lantus SoloStar 100 UNIT/ML penIndications:Typ e 2 diabetes mellitus with hyperglycemia, with long-term current use of insulin Inject 15 Units under the skin in the morning. Titrate to target glucose. Max daily dose 50 units. 15 mL 3 02/28/20 25 Active busPIRone (Buspar) 10 MG tablet Take 1 tablet (10 mg) by mouth in the morning and at bedtime. Active prednisoLONE acetate (Pred-Forte) 1 % ophthalmic suspension Administer 2 drops into the right eye. Active moxifloxacin (Vigamox) 0.5 % ophthalmic solution Administer 1 drop into the right eye in the morning, at noon, and at bedtime. 01/05/20 25 Active oxyCODONE (Roxicodone) 5 MG immediate release tablet Take 1 tablet (5 mg) by mouth every 6 (six) hours if needed. 01/11/20 25 Active cyclobenzaprine (Flexeril) 10 MG tablet Take 1 tablet (10 mg) by mouth if needed in the morning and at bedtime. Active pantoprazole (ProtoNix) 40 MG EC tabletIndications: Gastroesophageal reflux disease, unspecified whether esophagitis present Take 1 tablet (40 mg) by mouth in the morning. Do not crush, chew, or split. 30 tablet 2 03/19/20 25 025 Active rifAXIMin (Xifaxan) 550 MG tabletIndications: Encephalopathy, hepatic Take 1 tablet (550 mg) by mouth in the morning and at bedtime. 60 tablet 2 03/19/20 25 Active spironolactone (Aldactone) 100 MG tabletIndications: Cirrhosis of liver without ascites, unspecified hepatic cirrhosis type Take 2 tablets (200 mg) by mouth in the morning. 60 tablet 2 03/20/20 25 025 Active lactulose (Chronulac) 10 GM/15ML solutionIndication s:Hepatic encephalopathy Take 15 mL (10 g) by mouth in the morning and at bedtime. 1200 mL 3 03/20/20 25 026 Active busPIRone (Buspar) 7.5 MG tablet Take 1 tablet (7.5 mg) by mouth in the morning and at bedtime. Active valACYclovir (Valtrex) 500 MG tabletIndications: Acute vaginitis Take 1 tablet (500 mg) by mouth in the morning. 30 tablet 5 03/27/20 25 026 Active valACYclovir (Valtrex) 1 g tabletIndications: Acute vaginitis Take 1 tablet (1,000 mg) by mouth in the morning and at bedtime for 10 days. 20 tablet 03/27/20 25 025 Active Problems Problem Noted Date Diagnosed Date [...] today Analysis of data: Dexcom Clarity trudy asya Date of : 1970 Generated at: Aug [...] for 6 months Dexcom showing: Dexcom Clarity trudy sky Date of : 1970 Generated at: November 19, 2023 10:11 AM EDT Reporting period: [facility] [place] Nov 06, 2023 - WedNovember 19, 2023 Glucose Details Average glucose: 133 mg/dL Standard deviation: 34 mg/dL GMI: 6.5% Time in Range Very High: <1% High: 9% In Range: 90% Low: <1% Very Low: 0% Target Range 70-180 mg/dL CGM Details Sensor usage: 93% Days with CGM data: Dexcom Clarity trudy sky Date of [...] ozempic .25mg each week. Sample given Lot# [id number] Exp Date 04/2024 # given 1 Sample [...] in 3 months dexcom showing: Dexcom Clarity trudy sky Date of : 1970 Generated at: Dec [...] 3 months Dexcom showing: Dexcom Clarity trudy asya Date of : 1970 Generated at: Sep [...] disturbances have subsided since establishing care with [facility]. Patient does state she is told she [...] and severity improved since establishing care with [facility]. Good compliance with Xifaxin. Patient has a [...] Patient is back with regular visits with [facility] and is doing better since hospitalization regarding [...] experienced similar symptoms and her GI in [place] started her on Xifaxan, which reportedly resolved the symptoms, despite a recurrence in October 2021. Her symptoms today have since significantly resolved, per patient. She states she has had no lapses in taking her medication during these periods, although today she is out of the medication and her GI in [place] has discharged her from the practice due to no-show visits. Dr. Rolon in [place] was called to see if he will [...] Encounters Date Type Department Care Team Description 04/16/2025 Abstract [facility] GASTROENTEROLOGY PRACTICE [address], [address]nd [place] [address] El Agarwal NP 04/06/2025 Abstract [facility] GASTROENTEROLOGY PRACTICE [address], [address] [place] [address] El Agarwal NP 03/28/2025 8:00 AM EDT Office Visit [facility] SLEEP LAB PRACTICE [address], [place] [address] Marcelina Hyde NP LEROY (obstructive sleep apnea) (Primary Dx); Snoring; Excessive daytime sleepiness; Witnessed apneic spells; Gasping for breath; Non-restorative sleep; Persistent disorder of initiating or maintaining sleep; Restless leg syndrome 03/28/2025 Results Follow-Up [facility] OBSTETRICS/GYNECOLOGY UNIT [address], [address] [place] [address] Janice Woodward NP Vaginitis Panel, C. trachomatis / N. gonorrhoeae, DNA probe, HIV Ag/Ab with Reflex, Additional followed-up results: 2 03/27/2025 11:00 AM EDT Office Visit [facility] ORTHOPEDIC PODIATRY PRACTICE [address], [address] [place] [address] Alexandr Zarate, DPM Diabetic polyneuropathy associated with type 2 diabetes mellitus; Achilles tendinitis of left lower extremity; Bilateral calcaneal spurs; Pain in both feet 03/27/2025 10:30 AM EDT Office Visit [facility] OBGYN PRACTICE [address], [address] [place] [address] Janice Woodward NP Acute vaginitis (Primary Dx) 03/27/2025 Travel 03/26/2025 Telephone [facility] OBGYN PRACTICE [address], [address] [place] [phone] Janice Woodward NP vaginal swab 03/21/2025 Telephone [facility] GASTROENTEROLOGY PRACTICE [address], [address] [place] [phone] El Agarwal NP 03/20/2025 Results Follow-Up [facility] GASTROENTEROLOGY PRACTICE [address], [address] [place] [phone] El Agarwal NP CBC, Basic metabolic panel, Hepatic function panel, Additional followed-up results: 3 03/20/2025 Orders Only [facility] GASTROENTEROLOGY PRACTICE [address], [address] [place] [phone] El Agarwal NP Hepatic cirrhosis, unspecified hepatic cirrhosis type, unspecified whether ascites present (Primary Dx) 03/19/2025 1:15 PM EDT Office Visit [facility] GASTROENTEROLOGY PRACTICE [address], [address] [place] [phone] El Agarwal NP Cirrhosis of liver without ascites, unspecified hepatic cirrhosis type (Primary Dx); Hepatic encephalopathy; Gastroesophageal reflux disease, unspecified whether esophagitis present; Encephalopathy, hepatic; GAVE (gastric antral vascular ectasia) 03/19/2025 Travel 02/27/2025 4:50 PM EDT - 02/27/2025 11:59 PM EDT Hospital Encounter [facility] DIAGNOSTIC CENTER - GENERAL DIAGNOSTIC BLDG D [address], [place] [address] Cirrhosis Discharge Disposition: Home or Self Care 02/27/2025 1:00 PM EDT Office Visit [facility] ORTHOPEDIC PODIATRY PRACTICE [address], [address] [place] [address] Alexandr Zarate, OLLIE Diabetic polyneuropathy associated with type 2 diabetes mellitus (Primary Dx) 02/27/2025 Orders Only [facility] ENDOCRINOLOGY PRACTICE [address], [address] [place] [address] Lesly Agarwal Type 2 diabetes mellitus with hyperglycemia, with long-term current use of insulin 02/27/2025 Orders Only [facility] ORTHOPEDIC PODIATRY PRACTICE [address], [address] [place] [address] Marion Chaney, CORWIN Diabetic polyneuropathy associated with type 2 diabetes mellitus 02/26/2025 12:50 PM EDT - 02/26/2025 11:59 PM EDT Hospital Encounter [facility] DIAGNOSTIC CENTER - GENERAL DIAGNOSTIC BLDG D [address], [place] [address] Type 2 diabetes mellitus with hyperglycemia, with long-term current use of insulin; Other fatigue; Hyperlipidemia Discharge Disposition: Home or Self Care 02/26/2025 Travel 02/26/2025 Orders Only [facility] ENDOCRINOLOGY PRACTICE [address] [place] [address] Lesly Agarwal Type 2 diabetes mellitus with hyperglycemia, with long-term current use of insulin 02/23/2025 [address] [facility] ENDOCRINOLOGY PRACTICE [address], [address] [place] [address] Brigitte Mahoney NP 02/22/2025 3:20 AM EDT - 02/22/2025 6:50 AM EDT Emergency [facility] EMERGENCY DEPARTMENT [address], [address] Floor [place] [facility] [address] Raheel Christopher, Leg cramping (Primary Dx) Discharge Disposition: Left Against Medical Advice 02/22/2025 Travel 02/20/2025 11:40 AM EDT - 02/20/2025 11:59 PM EDT Hospital Encounter [facility] [address], [address] Floor [place] [address] Postlaminectomy syndrome, not elsewhere classified Discharge Disposition: Home or Self Care 02/20/2025 Travel 02/16/[address]25 [address]phone [facility] NEUROLOGY PRACTICE [address], [address] [place] [address] Francisca Wolf 02/12/2025 2:30 PM EDT - 02/12/2025 2:31 PM EDT Hospital Encounter [facility] DIAGNOSTIC CENTER - GENERAL DIAGNOSTIC BLDG D [address], [place] [address] Radiculopathy, lumbar region; Spondylosis without myelopathy or radiculopathy, thoracic region Discharge Disposition: Home or Self Care 02/12/2025 Travel from Last 3 Months Family History [...] [facility] M[facility] [place] D [address], [place]g D [facility] [place] [facility] [place] [address] 06/18/2025 10:30 AM EST Office Visit [facility] GASTROENTEROLOGY PRACTICE [address], 2nd [place] [address] 06/27/2025 10:00 AM EST Office Visit [facility] SLEEP LAB PRACTICE [address], [place] [address] Demario Silva DO [address] [place] [address] 08/16/2025 10:00 AM EST Office Visit [facility] ENDOCRINOLOGY PRACTICE [address], [address]th [place] [address] Brigitte Mahoney NP [address] [facility] [place] [address] 09/18/2025 1:30 PM EDT Office Visit [facility] RHEUMATOLOGY PRACTICE [address], [address]th [place] [address] Suman Treviño MD [address] [facility] [place] [address] 12/13/2025 1:15 PM EDT Office Visit [facility] OBGYN PRACTICE [address], 7[address] [place] [address] Janice Woodward NP [address] [place] [id number] Health Maintenance Due Date Last Done Comments [...] VAGINITIS PANEL (PERFORMED AT [facility]) Routine 03/27/2025 12:42 PM EDT [...] Spondylosis without myelopathy or radiculopathy, thoracic region BI MAMMOGRAM SCREENING BILATERAL Routine 02/15/2024 9:38 AM EDT Encounter for screening mammogram for malignant neoplasm of breast COLONOSCOPY Routine 07/31/2022 7:53 AM EST Iron deficiency anemia, unspecified iron deficiency anemia type Other cirrhosis of liver from Last 3 Months or Most Recently Relevant to Health Maintenance Results * Vaginitis Panel (03/27/2025 12:42 PM EDT) Pathologist [facility] [place] Bacterial Vaginosis (BV) NEGATIVE NEGATIVE 03/27/2025 9:42 PM EDT [facility] Edelmira glab-krus NOT DETECTED NOT DETECTED 03/27/2025 9:42 PM EDT [facility] Edelmira group NOT DETECTED NOT DETECTED 03/27/2025 9:42 PM EDT [facility] Trichomoniasis (TV) NOT DETECTED NOT DETECTED 03/27/2025 9:42 PM EDT [facility] Vaginal Swab Vaginal structure / Unknown Non-blood Collection / Unknown 03/27/2025 12:42 PM EDT 03/27/2025 8:03 PM EDT [facility] LABORATORY - 03/27/2025 9:42 PM EDT A [...] patients less than 14 years of age. Janice Woodward NP LAB MICROBIOLOGY - [facility] ORDERABLES Final Result Performing Organization Address City/State/[facility] Co de Phone Number [facility] [address] [place] [address], * C. trachomatis / N. gonorrhoeae, DNA probe (03/27/2025 12:42 PM EDT) [facility] Chlamydia, DNA Probe NOT DETECTED NOT DETECTED 03/27/2025 9:41 PM EDT [facility] N gonorrhoeae, DNA Probe NOT DETECTED NOT DETECTED 03/27/2025 9:41 PM EDT [facility] Comment: A negative test result does [...] 12:42 PM EDT 03/27/2025 8:03 PM EDT Janice Woodward NP LAB MICROBIOLOGY - GENER AL ORDERABLES Final Result [facility] [address] [place] [address], [place] [phone] * (ABNORMAL) Herpes simplex virus culture (03/27/2025 12:42 PM EDT) HSV Culture Positive(A ) 03/31/2025 2:07 PM EDT [facility] ([place]) Swab Cervical swab / Unknown Non-blood Collection / Unknown 03/27/2025 12:42 PM EDT 03/27/2025 8:03 PM EDT Narrative [facility] ([place]) - 03/31/2025 2:07 PM EDT Performed at: [facility] [id number] Gamma Ray Operator: Rpahael Edwards PhD, Phone: [phone] Janice Woodward NP LAB MICROBIOLOGY - GENER AL ORDERABLES Final Result [facility] ([place]) [address] [place] [address], [place] [phone] * (ABNORMAL) Herpes Simplex Virus (HSV) Types 1 & 2 Specific Antibodies (03/27/2025 11:52 AM EDT) HSV 1 IgG, Type Spec Reactive( A) Non Reactive 03/28/2025 8:07 AM EDT [facility] ([place]) Comment: Please note reference interval change HSV-1 IgG testing performed using the [employer] Elecsys HSV-1 IgG assay. HSV 2 IgG Type Spec Reactive( A) Non Reactive 03/28/2025 8:07 AM EDT [facility] ([email or web address]) Comment: Please note reference interval change Current [...] EDT 03/27/2025 12:17 PM EDT Narrative [facility] [employer]) - 03/28/2025 8:07 AM EDT Performed at: [address] [place] [id number] Gamma Ray Operator: Raphael Edwards PhD, Phone: [phone] [address] [facility] LAB BLOOD ORDERABLES [facility] al Result [employer] [employer]) [address] [place] [address], * RPR W/Reflex (Reference Lab) (03/27/2025 11:52 AM EDT) RPR Non Reactive Non Reactive 03/28/2025 8:07 AM EDT [facility] ([employer]) Blood Venous blood specimen / Unknown Venipuncture / Unknown 03/27/2025 11:52 AM EDT 03/27/2025 12:17 PM EDT Narrative [facility] ([employer]) - 03/28/2025 8:07 AM EDT Performed at: 01 - [facility] [address] [id number] Gamma Ray Operator: Raphael Edwards PhD, Phone: [phone] Janice Woodward NP LAB BLOOD ORDERABLES Fin al Result [facility] NICHOLAS) [address] [place] [address], [place] [phone] * HIV Ag/Ab with Reflex (03/27/2025 11:52 AM EDT) HIV Ag/Ab (4th Gen) Nonreactive Nonreactive 03/27/2025 1:02 PM EDT [facility] Blood Venous blood specimen / Unknown Venipuncture / Unknown 03/27/2025 11:52 AM EDT 03/27/2025 12:17 PM EDT Narrative [facility] - 03/27/2025 1:02 PM EDT Screening test only. Janice Woodward NP LAB BLOOD ORDERABLES Fin al Result Performing Organization Address City/[facility]/ZIP Co de Phone Number [facility] [address] [place] [address], [place] [phone] * Hepatitis panel, acute (03/27/2025 11:52 AM EDT) Hepatitis B Surface Ag Nonreactive Nonreactive 03/27/2025 1:26 PM EDT [facility] Hep A IgM Nonreactive Nonreactive 03/27/2025 1:26 PM EDT [facility] Hep B Core IgM Nonreactive Nonreactive 03/27/2025 1:26 PM EDT [facility] Hepatitis C Ab Nonreactive Nonreactive 03/27/2025 1:26 PM EDT [facility] Blood Venous blood specimen / Unknown Venipuncture / Unknown 03/27/2025 11:52 AM EDT 03/27/2025 12:17 [address] [facility] LAB BLOOD ORDERABLES Fin al Result [facility] [address] [place] [address], * (ABNORMAL) CBC (03/27/2025 11:52 AM EDT) Only the most recent of2 resultswithin the time period is included. Auto WBC 8.8 3.8 - 11.0 10*3/uL 03/27/2025 12:21 PM EDT [facility] RBC 3.97 3.73 - 5.13 10*6/uL 03/27/2025 12:21 PM EDT [facility] Hemoglobin 13.1 11.2 - 15.3 g/dL 03/27[facility] Hematocrit 39.1 32.6 - 44.6 % 03/27/2025 12:[facility] MCV 98.6(H) 78.8 - 96.0 fL 03/27/2025 12:21 PM [facility] MCH 33.0 26.2 - 33.0 pg 03/27/2025 12:21 PM [facility] MCHC 33.5 32.7 - 35.1 g/dL 03/27/2025 12:21 [facility] RDW 14.5 12.1 - 16.1 % 03/27/2025 12:21 PM [facility] Platelets 88(L) 138 - 402 10*3/uL 03/27/2025 12:21 PM [facility] MPV 7.9 7.0 - 10.6 fL 03/27/2025 12:21 PM [facility] Blood Venous blood specimen / Unknown Venipuncture / Unknown 03/27/2025 11:52 AM EDT 03/27/2025 12:[address] [facility] LAB BLOOD ORDERABLES Final Re sult [facility] [address] [place] [address], * (ABNORMAL) Comprehensive metabolic panel (03/27/2025 11:52 AM EDT) Only the most recent of2 resultswithin the time period is included. Sodium 137 134 - 143 mmol/L 03/27/2025 12:43 PM [facility] Potassium 4.2 3.2 - 4.6 mmol/L 03/27/2025 12:43 PM [facility] Chloride 103 99 - 108 mmol/L 03/27/2025 12:43 PM [facility] CO2 28 19 - 29 mmol/L 03/27/2025 12:43 PM [facility] Anion Gap 6 5 - 15 mmol/L 03/27/2025 12:43 PM [facility] BUN 19 7 - 20 mg/dL 03/27/2025 12:43 PM [facility] Creatinine 1.02 <=1.20 mg/dL 03/27/2025 12:43 PM [facility] BUN/Creatinine Ratio 18.63 10.00 - 20.00 ratio 03/27/2025 12:43 PM [facility] Glucose 117(H) 58 - 104 mg/dL 03/27/2025 12:43 PM [facility] Calcium 9.3 7.9 - 11.1 mg/dL 03/27/2025 12:43 PM [facility] AST 55(H) 10 - 28 U/L 03/27/2025 12:43 PM [facility] ALT (SGPT) 36 <=40 U/L 03/27/2025 12:43 PM [facility] Alkaline Phosphatase 213(H) 29 - 108 U/L 03/27/2025 12:43 PM [facility] Total Protein 6.2 5.9 - 7.9 g/dL 03/27/2025 12:43 PM [facility] Albumin 3.1(L) 3.5 - 5.1 g/dL 03/27/2025 12:43 PM EDT [facility] Globulin, Total 3.1 2.4 - 4.8 g/dL 03/27/2025 12:43 PM EDT [facility] A/G Ratio 1.0 0.6 - 1.6 03/27/2025 12:43 PM EDT [facility] Total Bilirubin 1.9(H) 0.3 - 1.0 mg/dL 03/27/2025 12:43 PM EDT [facility] eGFR (CKD-EPI) 62.1 >60.0 - 200.0 mL/min/1.7 3m*2 03/27/2025 12:43 PM EDT [facility] Blood Venous blood specimen / Unknown Venipuncture / Unknown 03/27/2025 11:52 AM EDT 03/27/2025 12:17 PM EDT us [address] [facility] LAB BLOOD ORDERABLES Final Re sult [facility] [address] [place] [address], * AFP tumor marker (03/19/2025 2:49 PM EDT) [facility] AFP Tumor Marker 4.7 0.0 - 9.2 [...] 03/20/2025 4:06 AM EDT Performed at: [address] [place] [id number] Gamma Ray Operator: Raphael Edwards PhD, Phone: [phone] [address] [facility] LAB BLOOD ORDERABLES Final Re sult [facility]) [address] [place] [address], [place] [phone] * (ABNORMAL) Protime-INR (03/19/2025 2:49 PM EDT) Only the most recent of2 resultswithin the time period is included. Protime 14.3(H) 10.2 - 12.9 seconds 03/19/2025 3:27 PM EDT [facility] INR 1.27(H) 0.90 - 1.10 03/19/2025 3:27 PM EDT [facility] Comment: The INR should only be used in stable anticoagulated patients. Recommended therapeutic ranges: Condition INR Prevention or treatment of DVT 2.0-3.0 Acute IA Prevention of Stroke 2.0-3.0 Prevention of recurrent IA 2.5-3.5 Atrial fibrillation Prevention of systemic embolism 2.0-3.0 Cardiac valve replacement (mechanical valves) 2.5-3.5 Blood Venous blood specimen / Unknown Venipuncture / Unknown 03/19/2025 2:49 PM EDT 03/19/2025 3:[address] [facility] LAB BLOOD ORDERABLES Final Re sult [facility] [address] [place] [address], * (ABNORMAL) Ammonia (03/19/2025 2:49 PM EDT) Ammonia 65(H) 11 - 32 umol/L 03/19/2025 3:37 PM EDT [facility] Blood Venous blood specimen / Unknown Venipuncture / Unknown 03/19/2025 2:49 PM EDT 03/19/2025 3:[address] [facility] LAB BLOOD ORDERABLES Final Re sult Performing Organization Address City/[facility]/ZIP Co de Phone Number [facility] [address] [place] [address], [place] [phone] * (ABNORMAL) Hepatic function panel (03/19/2025 2:49 PM EDT) Total Bilirubin 2.0(H) 0.3 - 1.0 mg/dL 03/19/2025 3:35 PM EDT [facility] Bilirubin, Direct 0.6(H) 0.0 - 0.2 mg/dL 03/19/2025 3:35 [facility] Alkaline Phosphatase 205(H) 29 - 108 U/L 03/19/2025 3:35 PM [facility] AST 61(H) 10 - 28 U/L 03/19/2025 3:35 PM [facility] ALT (SGPT) 40 <=40 U/L 03/19/2025 3:35 PM [facility] Albumin 2.9(L) 3.5 - 5.1 g/dL 03/19/2025 3:35 PM [facility] [facility] Total Protein 6.0 5.9 - 7.9 g/dL 03/19/2025 3:35 PM [facility] Blood Venous blood specimen / Unknown Venipuncture / Unknown 03/19/2025 2:49 PM EDT 03/19/2025 3:06 PM EDT [facility] LABORATORY - 03/19/2025 3:35 PM EDT Results for ALT may be adversely affected when samples are collected on patients taking Sulfasalazine and/or Sulfapyridine. [address] CROSSING [employer]ARD LAB BLOOD ORDERABLES Final Re sult [facility] [address] [place] [address], [place] [phone] * (ABNORMAL) Basic metabolic panel (03/19/2025 2:49 PM EDT) Only the most recent of2 resultswithin the time period is included. Glucose 116(H) 58 - 104 mg/dL 03/19/2025 3:35 PM EDT [facility] Sodium 133(L) 134 - 143 mmol/L 03/19/2025 3:35 PM EDT [facility] Potassium 4.2 3.2 - 4.6 mmol/L 03/19/2025 3:35 PM EDT [facility] Chloride 101 99 - 108 mmol/L 03/19/2025 3:35 PM EDT [facility] CO2 30(H) 19 - 29 mmol/L [facility]/19[facility] Anion Gap 2(L) 5 - 15 mmol/L 03/19/2025 3:35 PM [facility] BUN 19 7 - 20 mg/dL 03/19[facility]2025 3:[facility] Creatinine 0.91 <=1.20 mg/dL 03/19/2025 3:35 PM [facility] BUN/Creatinine Ratio 20.88(H) 10.00 - 20.00 ratio 03/19/2025 3:35 PM [facility] Calcium 8.6 7.9 - 11.1 mg/dL 03/19/2025 3:35 PM [facility] eGFR (CKD-EPI) 71.3 >60.0 - 200.0 mL/min/1.7 3m*2 03/19/2025 3:35 PM [facility] Blood Venous blood specimen / Unknown Venipuncture / Unknown 03/19/2025 2:49 PM EDT 03/19/2025 3:06 PM EDT us El Agarwal NP LAB BLOOD ORDERABLES Final Re sult [facility] [address] [place] [address], * (ABNORMAL) CBC auto differential (02/26/2025 1:00 PM EDT) Only the most recent of2 resultswithin the time period is included. Auto WBC 4.9 3.8 - 11.0 10*3/uL 02/26/2025 2:40 PM [facility] RBC 3.89 3.73 - 5.13 10*6/uL 02/26/2025 2:40 PM [facility] Hemoglobin 13.0 11.2 - 15.3 g/dL 02/26/2025 2:40 PM [facility] Hematocrit 38.2 32.6 - 44.6 % 02/26/2025 2:40 PM [facility] MCV 98.3(H) 78.8 - 96.0 fL 02/26/2025 2:40 PM [facility] MCH 33.4(H) 26.2 - 33.0 pg 02/26/2025 2:40 PM [facility] MCHC 33.9 32.7 - 35.1 g/dL 02/26/2025 2:40 PM [facility] RDW 14.6 12.1 - 16.1 % 02/26/2025 2:40 PM [facility] MPV 8.3 7.0 - 10.6 fL 02/26/2025 2:40 PM [facility] Neutrophils % 67 47 - 79 % 02/26/2025 2:40 PM [facility] Lymphocytes % 19 13 - 41 % 02/26/2025 2:40 PM [facility] Monocytes % 9 3 - 11 % 02/26/2025 2:40 PM [facility] Eosinophils % 4 0 - 6 % 02/26/2025 2:40 PM [facility] Basophils % 0 0 - 2 % 02/26/2025 2:40 PM [facility] Neutrophils Absolute 3.30 1.90 - 7.50 10*3/uL 02/26/2025 2:40 PM [facility] Lymphocytes Absolute 1.00 0.80 - 3.20 10*3/uL 02/26/2025 2:40 PM EDT [facility] Monocytes Absolute 0.40 0.10 - 0.90 10*3/uL 02/26/2025 2:40 PM EDT [facility] Eosinophils Absolute 0.20 0.00 - 0.40 10*3/uL 02/26/2025 2:40 PM EDT [facility] Basophils Absolute 0.00 0.00 - 0.20 10*3/uL 02/26/2025 2:40 PM EDT [facility] Platelets 74(L) 138 - 402 10*3/uL 02/26/2025 2:40 PM EDT [facility] Blood Venous blood specimen / Unknown Venipuncture / Unknown 02/26/2025 1:00 PM EDT 02/26/2025 1:00 PM EDT Trevor Rolon LAB BLOOD ORDERABLES Fi nal Result Performing Organization Address City/[facility]/ZIP Co de Phone Number [facility] [address] [place] [address], [place] [phone] * Vitamin D 25 hydroxy (02/26/2025 1:00 PM EDT) [facility] Vitamin D, Total 67 30 - 100 ng/mL 02/26/2025 3:19 PM EDT [facility] Blood Venous blood specimen / Unknown Venipuncture / Unknown 02/26/2025 1:00 PM EDT 02/26/2025 1:00 PM EDT Trevor Rolon peerTransfer LAB BLOOD ORDERABLES Fi nal Result [facility] [address] [place] [address], [place] [phone] * Hemoglobin A1c (02/26/2025 1:00 PM EDT) [facility] Hemoglobin A1C 5.1 3.0 - 6.0 % 02/26/2025 3:25 PM EDT [facility] Comment: Additional Reference Ranges: 6.0 - 9.0% Controlled Diabetic >9.0 Poorly Controlled Diabetic *Hemoglobin A1c is an FDA approved test for monitoring penitentiary glucose control in individuals with diabetes. It is not an approved screening test for diagnosing type 1 and type 2 diabetes. Results of Hemoglobin A1c are not reliable in patients with chronic blood loss, consequent variable erythrocyte lifespan, hemolytic diseases, , and significant blood loss. MEAN BLOOD GLUCOSE 99.67 mg/dl 02/26/2025 3:25 PM EDT [facility] Blood Venous blood specimen / Unknown Venipuncture / Unknown 02/26/2025 1:00 PM EDT 02/26/2025 1:00 PM EDT Trevor Rolon DO LAB BLOOD ORDERABLES Fi nal Result Performing Organization Address City/[facility] Co de Phone Number [facility] [address] [place] [address], * Folate (02/26/2025 1:00 PM EDT) Folate 15.3 5.9 - 24.8 ng/mL 02/26/2025 3:23 PM EDT [facility] Blood Venous blood specimen / Unknown Venipuncture / Unknown 02/26/2025 1:00 PM EDT 02/26/2025 1:00 PM EDT Trevor Rolon DO LAB BLOOD ORDERABLES Fi nal Result Performing Organization Address City/[facility]/ZIP Co de Phone Number [facility] [address] [place] [address], [place] [phone] * (ABNORMAL) Vitamin B12 (02/26/2025 1:00 PM EDT) Vitamin B-12 987.1(H) 180.0 - 914.0 pg/mL 02/26/2025 3:23 PM EDT [facility] Blood Venous blood specimen / Unknown Venipuncture / Unknown 02/26/2025 1:00 PM EDT 02/26/2025 1:00 PM EDT Trevor Rolon DO LAB BLOOD ORDERABLES Fi nal Result Performing Organization Address City/[facility] Co de Phone Number [facility] [address] [place] [address], * (ABNORMAL) Lipid panel (02/26/2025 1:00 PM EDT) Triglycerides 84 <=150 mg/dL 02/26/2025 3:05 PM EDT [facility] Cholesterol 185 102 - 200 mg/dL 02/26/2025 3:05 PM EDT [facility] HDL 52 30 - 71 mg/dL 02/26/2025 3:05 PM EDT [facility] Cholesterol/HDL Ratio 3.6 02/26/2025 3:05 PM EDT [facility] LDL-C (FRIEDYVONALD) 116(H) <=100 mg/dL 02/26/2025 3:05 PM EDT [facility] Blood Venous blood specimen / Unknown Venipuncture / Unknown 02/26/2025 1:00 PM EDT 02/26/2025 1:00 PM EDT Trevor Rolon DO LAB BLOOD ORDERABLES Fi nal Result Performing Organization Address [facility] Co de Phone Number [facility] [address] [place] [address], * Magnesium (02/22/2025 3:57 AM EDT) Magnesium 1.9 1.8 - 2.4 mg/dL 02/22/2025 4:34 AM EDT [facility] Blood Venous blood specimen / Unknown Venipuncture / Unknown 02/22/2025 3:57 AM EDT 02/22/2025 4:08 AM EDT Raheel Christopher DO LAB BLOOD ORDERABLES Fi nal Result [facility] [address] [place] [address], * MR lumbar spine w and wo [...] Felix MD 02/20/2025 02:55 PM EDT RPWorkstation: [id number] Bharti Marks NP IMG MRI PROCEDURES Final Result * POCT Creatinine - Enter/Edit (02/20/2025 1:11 PM EDT) POC Creatinine 0.67 0.6 - 1.3 mg/dL GFR >60 >=60 ml/min Blood 02/20/2025 1:11 PM EDT Narrative Debora Blankenship RN - 02/20/2025 1:11 PM EDT For additional details regarding the eGFR calculation, please consult [facility] policy C6910.5051. Bharti Marks NP POINT OF [...] Short MD 02/13/2025 08:21 AM EDT RPWorkstation: [id number] Louis Andrews MD IMG XR PROCEDURES Final Result * XR thoracic spine (02/12/2025 2:57 PM EDT) Anatomical Region Laterality Modality Spine, T-spine Digital Radiogra phy 02/12/2025 2:57 PM EDT Impressions 02/13/2025 8:19 AM EDT No acute fracture of the thoracic spine. Electronically signed by: Colby Short MD 02/13/2025 08:19 AM EDT RP Narrative [...] Short MD 02/13/2025 08:19 AM EDT RPWorkstation: [id number] Louis Andrews MD IMG XR PROCEDURES Final Result * BI Screening mammogram bilateral w tomosynthesis [...] breast benign coarse calcifications. Trevor Rolon DO IMG BI PROCEDURES Final Result * Colonoscopy (07/31/2022 [...] by the physician, the nurse and the oil well service unit operator. The procedure was verified in the pre-procedure [...] the patient. Procedure Code(s): --- Professional --- 47449, Colonoscopy, flexible; with biopsy, single or multiple --- Technical --- 85268, Colonoscopy, flexible; with biopsy, single or multiple [...] or abscess without bleeding CPT copyright 2018 [employer]. All rights reserved. The codes documented in this report are preliminary and upon supply chain technician review may be revised to meet current compliance requirements. DO Mc Ceja Jr., DO 07/31/2022 7:55:48 AM This report has been signed electronically. Number of Addenda: 0 Note Initiated On: 07/31/2022 7:19 AM Procedure Note Mc Grant DO - 07/31/2022 Patient Name: Trudy Asya Attending MD: Mc Grant DO Scope(s) [...] procedure by the physician,the nurse and the oil well service unit operator. The procedure wasverified in the pre-procedure area. [...] the patient. Procedure Code(s): --- Professional --- 66088, Colonoscopy, flexible; with biopsy, single or multiple --- Technical --- 92512, Colonoscopy, flexible; with biopsy, single or multiple [...] or abscess without bleeding CPT copyright 2018 [employer]. All rights reserved. The codes documented in this report are preliminary and upon supply chain technician reviewmay be revised to meet current compliance [...] Most Recently Relevant to Health Maintenance Insurance [facility] Advance Directives * Full Code (Latest Code Status on File) Date Activated Date Inactivated Comments 07/23/2022 5:34 PM 07/25/2022 3:59 PM Care Teams Data Processing Consultant Relationship Specialty Start Date End Date Trevor Rolon DO [address] [facility] [address] [place] [id number] PCP - General Lucy Christopher DO [address] [place] [address] [place], [place] [id number] Consulting Physician Oncology 10/17/24
--- OUTSIDE RECORDS SUMMARY | 2025-05-04 09:24 | XMS_ITS | Clinical Summary ---
Author Organization [facility] yste Address [address] [place] [address] Care Team Providers Care Enthone Solder Stripper Name Role Phone John Cowan MD Primary [...] Narrative 04/17/2015 10:47 AM EDT Exam Room: [facility] MAMM RM 1 Exam Start: [id number] Exam Stop: [id number] HISTORY- Screening Mammography. Low Dose full field [...] will be mailed to the patient. Reading RadiologisthAmet AVILA Releasing RadiologistAhmet AVILA Released Date Time- 04/17/15 1049 Collar Packer- S.S. Read By: MARILEE AVILA Released By: MARILEE AVILA Procedure Note Marilee Gabriel MD - 05/05/2015 Exam Room: [facility] 1 Exam Start: [id number] Exam Stop: [id number] HISTORY- Screening Mammography. Low Dose full field [...] MARILEE AVILA Released Date Time- 04/17/15 1049 Collar Packer- S.S. Read By: MARILEE AVILA Released By: MARILEE AVILA Pierre Orozco MD IM MAMMOGRAPHY ORDERABL ES Final Result from Last 3 Months or Most Recently Relevant to Health Maintenance Care Teams Enthone Solder Stripper Relationship Specialty Start Date End Date John Cowan MD [address] [place] [address] PCP - General 04/16/15
--- OUTSIDE RECORDS SUMMARY | 2025-05-04 09:24 | XMS_ITS | Encounter Summary ---
Author Organization [facility] nter Address [address] [place] [address] Care Team Providers Care Travel Guide Name Role Phone Trevor Rolon DO Primary Care Provider Lucy Christopher DO Unavailable Encounter Details Date Type Department Care Team (Late st Contact Info) Description 07/20/2022 Orders Only [facility] [address], 2nd [place] [address] Laquita Woods PA [address] [place] [address] Social History Tobacco Use Types [...] week 07/24/2022 How often do you attend [facility] or evangelical services? More than 4 [...] care home (including now)? No 07/24/2022 Comments Unknown Sex and Gender Information Value Date Recorded Sex Assigned at Female 09/17/2021 11:23 AM EST Legal Sex Female 11:23 AM EST Gender Identity Female 09/17/2021 11:23 AM EST Sexual Orientation Straight 09/17/2021 11 :23 AM EST COVID-19 Exposure Response Date Recorded In the last 10 days, have lesli u been in contact with someone who [...] occasion? Never 07/23/2022 5:28 PM Michelle Oro * Question Answer Date of Assessment Author Difficulty Chewing or Swallowing No 07/23/19 5:30 PM Michelle Oro * ADL Screening Question Answer Date of Assessment Author Patient's Vision Adequate to Safely Complete Daily Activities Yes 07/23/2022 5:29 PM Calista Oro Patient's Judgment Adequate to Safely Complete Daily Activities Yes 07/23/2022 5:29 PM EST Michelle Samuel Patient's Memory Adequate to Safely Complete Daily Activities Yes 07/23/2022 5:29 PM Calista Oro Patient Able to Express Needs/Desires Yes 07/23/2022 5:29 PM EST Michelle Ohara Dressing Independent 07/23/2022 5:29 PM EST Ohara , Michelle Grooming Independent 07/23/2022 5:29 PM EST Donna Oharaela Feeding Independent 07/23/2022 5:29 PM EST Ohara , Michelle Bathing Independent 07/23/2022 5:29 PM EST Michelle Ohara Toileting Independent 07/23/2022 5:29 PM Michelle Oro In/Out Bed Independent 07/23/2022 5:29 PM Michelle Oro Walks in Home Independent 07/23/2022 5:29 PM EST Michelle Samuel Weakness of Legs None 07/23/2022 5:29 PM EST Ernie ixMichelle patel Weakness of Arms/Hands None 07/23/2022 5:29 PM Michelle Oro Hearing - Right Ear Functional 07/23/2022 5:29 PM ES Michelle Leo Hearing - Left Ear Functional 07/23/2022 5:29 PM Michelle Oro Which is your dominant hand? Right 07/23/2022 5 :29 PM Michelle Oro * Therapy Consults Question Answer Date of Assessment Author PT Evaluation Needed 2 07/23/2022 5:29 PM E Michelle Benoit OT Evaluation Needed 2 07/23/2022 5:29 PM E Michelle Benoit HEMODIALYSIS LAB TECHNICIAN Evaluation Needed 2 07/23/2022 5:29 PM Michelle Oro * Assistive Devices Question Answer Date of Assessment Author Assistive Devices Eyeglasses 07/23/2022 5:28 PM Michelle Oro * On average, how many days per week do you engage in moderate to strenuous exercise (like a brisk walk)? Answer Date of Assessment Author 0 days 07/23/2022 5:28 PM Sreedhar Oro * On average, how many minutes do you engage in exercise at this level? Answer Date of Assessment Author 0 min 07/23/2022 5:28 PM Sreedhar Oro * Question Answer Date of Assessment Author 1. Have you wished you were or wished you could go to sleep and not wake up? No 07/23/2022 12:32 PM Tex Fabian RN 2. Have you actually had any thoughts of killing yourself? No 07/23/2022 12:32 PM Rey Fabian RN 6. Have you ever done anything, started to do anything, or prepared to do anything to end your life? No 07/23/2022 12:32 PM Deny Fabian RN documented as of this encounter Mental Status * Question Answer Entry Date Author Level of Consciousness Alert 3 7:28 PM Juana Jerry RN Orientation Level Oriented X4 07/23/2022 7:2 8 PM Juana Jerry RN Cognition Follows commands;Appropriate for developmental age;Appropriate attention/concentration;A ppropriate safety awareness;Appropriate judgement 07/23/2022 7:28 PM Juana Jerry RN Speech Clear 07/23/2022 7:28 PM Juana Jerry RN L Pupil Reaction Brisk 07/23/2022 6:05 PM Michelle Oro Pupil Size (mm) 3 07/23/2022 6:0 5 PM Michelle Oro Pupil Reaction Brisk 07/23/2022 6:05 PM Michelle Oro Pupil Size (mm) 3 07/23/2022 6:0 5 PM Michelle Oro Hand Grasp Strong 07/23/2022 7:28 PM Juana Jerry RN L Hand Grasp Strong 07/23/2022 7:28 PM Juana Jerry RN R Foot Dorsiflexion Strong 07/23/2022 7 :28 PM Juana Jerry RN L Foot Dorsiflexion Strong 07/23/2022 7 :28 PM Juana Jerry RN R Foot Plantar Flexion Strong 3 6:05 PM Michelle Oro Foot Plantar Flexion Strong 3 6:05 PM Michelle Oro Pupil Shape Round 07/23/2022 6:05 PM Michelle Oro L Pupil Shape Round 07/23/2022 6:05 PM Michelle Oro documented in this encounter Plan of Treatment Upcoming Encounters Date Type Department Care Team (Late st Contact Info) Description 05/07/2025 3:00 PM EDT Appointment [facility] MAMMOGRAPHY SERVICES [address] [place] [address] 06/18/2025 10:30 AM EST Office Visit [facility] GASTROENTEROLOGY PRACTICE [address], 2nd [place] [address] 06/27/2025 10:00 AM EST Office Visit [facility] SLEEP LAB PRACTICE [address], [place] [address] Demario Silva DO [address] [place] [address] 08/16/2025 10:00 AM EST Office Visit [facility] ENDOCRINOLOGY PRACTICE [address], 8th [place] [address] Brigitte Mahoney NP [address] [facility] [place] [phone] 09/18/2025 1:30 PM EDT Office Visit [facility] RHEUMATOLOGY PRACTICE [address], [address]th [place] [address] Suman Treviño MD [address] [facility] [place] [address] 12/13/2025 1:15 PM EDT Office Visit [facility] OBGYN PRACTICE [address], 7th [place] [address] Janice Woodward, CLAU [address] [place] [address] documented as of this encounter Visit Diagnoses Not on filedocumented in this encounter Care Teams Travel Guide Relationship Specialty Start Date End Date Trevor Rolon DO [address] [facility] [address] [place] [phone] PCP - General Lucy Christopher DO [address] [facility] [place] [address] Consulting Physician Oncology 10/17/24 documented as of this encounter
--- OUTSIDE RECORDS SUMMARY | 2025-05-04 09:25 | XMS_ITS | Encounter Summary ---
Author Organization [facility] nter Address [address] [place] [address] Care Team Providers Care University Administrative Assistant Name Role Phone Trevor Rolon DO Primary Care Provider Lucy Christopher DO Unavailable Encounter Details Date Type Department Care Team (Late st Contact Info) Description 08/08/2024 Orders Only [facility] [address], 8[address] Floor Clinic [place] [phone] Brigitte Mahoney, CLAU [address] [place] [address] Social History Tobacco Use Types [...] How often do you attend chur or latter day services? More than 4 [...] Appointment [facility] MAMMOGRAPHY SERVICES [facility] D [address] [place] [address] [facility] [place] [address] 06/18/2025 10:30 AM EST Office Visit [facility] GASTROENTEROLOGY PRACTICE [address] [place] [address], 2nd [place] [address] 06/27/2025 10:00 AM EST Office Visit [facility] SLEEP LAB [facility]ACT[facility] [address] [facility] [place] [address] Demario Silva DO [address] [place] [address] 08/16/2025 10:00 AM EST Office Visit [facility] ENDOCRINOLOGY PRACTICE [address] [place] [address], 8th [place] [address] Brigitte Mahoney NP [address] [facility] [place] [address] 09/18/2025 1:30 PM EDT Office Visit [facility] RHEUMATOLOGY PRACTICE [address], 8[address] [facility] [address] Suman Treviño MD [address] [facility]. [place] [address] 12/13/2025 1:15 PM EDT Office Visit [facility] OBGYN PRACTICE [address], 7th [place] [address] Janice Woodward, CLAU [address] [place] [address] documented as of this encounter Visit Diagnoses Not on filedocumented in this encounter Additional Health Concerns Assessment Noted Time PHQ-9 Depression Total Score: 0 07/24/19 23 3:00 PM EST documented as of this encounter Care Teams University Administrative Assistant Relationship Specialty Start Date End Date Trevor Rolon DO [address] [facility] [address] [place] [address] PCP - General Lucy Christopher DO [address] [place] [address] Consulting Physician Oncology 10/17/24 documented as of this encounter
--- OUTSIDE RECORDS SUMMARY | 2025-05-04 09:25 | XMS_ITS | Encounter Summary ---
Author Organization [facility] nter Address [address] [place] [address] Care Team Providers Care Scrap Collector Name Role Phone Trevor Rolon DO Primary Care Provider Lucy Christopher DO Unavailable Reason for Visit * Reason Comments Med Refill Encounter Details Date Type Department Care Team (Late st Contact Info) Description 09/10/2023 Refill [facility] [address], 9th [place] [address] Marc Back, OD [address] [address] Keratoconjunctivitis sicca of both eyes not specified [...] often do you attend [facility] services? More than 4 times [...] Appointment [facility] MAMMOGRAPHY SERVICES FARRUKH Klein [address], [place] [address] 06/18/2025 10:30 AM EST Office Visit [facility] [address], 2[address] Floor [place] [address] 06/27/2025 10:00 AM EST Office Visit [facility] SLEEP LAB PRACTICE [address] [place] [place] [address] Demario Silva DO [address] [place] [id number] 08/16/2025 10:00 AM EST Office Visit [facility] ENDOCRINOLOGY PRACTICE [address], 8th Floor [place] [address] Brigitte Mahoney NP [address] Bld[address] [place] [address] 09/18/2025 1:30 PM EDT Office Visit [facility] RHEUMATOLOGY PRACTICE [address], 8th [place] [address] Suman Treviño MD [address] [facility]. [place] [id number] 12/13/2025 1:15 PM EDT Office Visit [facility] OBGYN PRACTICE [address], 7[address] Floor [place] [address] Janice Woodward NP [address] [place] [address] documented as of this encounter Visit Diagnoses Diagnosis Keratoconjunctivitis sicca of both eyes not specified as Sjogren's documented in this encounter Additional Health Concerns Assessment Noted Time PHQ-9 Depression Total Score: 0 07/24/19 23 3:00 PM EST documented as of this encounter Care Teams Scrap Collector Relationship Specialty Start Date End Date Trevor Rolon DO [address] [facility] [address] [place] [address] PCP - General Lucy Christopher DO [address]ld[address] [place] [id number] Consulting Physician Oncology 10/17/24 documented as of this encounter
--- OUTSIDE RECORDS SUMMARY | 2025-05-04 09:25 | XMS_ITS | Encounter Summary ---
Author Organization [facility] nter Address [address] [place] [address] Care Team Providers Care Printed Circuit Boards Inspector Name Role Phone Trevor Rolon DO Primary Care Provider Lucy Christopher DO Unavailable Encounter Details Date Type Department Care Team (Late st Contact Info) Description 07/17/2024 Orders Only [facility] [address], 8th Floor Clinic [place] [phone] Lupe Villalta, GRANTS SPECIALIST [address] [facility] [place] [address] Social History Tobacco Use Types [...] How often do you attend chur or lutheran services? More than 4 times per year [...] Appointment [facility] MAMMOGRAPHY SERVICES [facility] D [address] [place] [address] [facility] [place] [address] 06/18/2025 10:30 AM EST Office Visit [facility] GASTROENTEROLOGY PRACTICE 1 [facility], 2nd [place] [address] 06/27/2025 10:00 AM EST Office Visit [facility] SLEEP LAB PRACTICE [facility] [place] [address] Demario Silva DO [address] [place] [address] 08/16/2025 10:00 AM EST Office Visit [facility] ENDOCRINOLOGY PRACTICE [address] [place] [address], 8th [place] [address] Brigitte Mahoney NP 911 [facility] [place] [address] 09/18/2025 1:30 PM EDT Office Visit [facility] RHEUMATOLOGY PRACTICE [address], 8th [place] [address] Suman Treviño MD [address] [place] [address] 12/13/2025 1:15 PM EDT Office Visit [facility] OBGYN PRACTICE [address], 7th [place] [address] Janice Woodward, CLAU [address] [place] [address] documented as of this encounter Visit Diagnoses Not on filedocumented in this encounter Additional Health Concerns Assessment Noted Time PHQ-9 Depression Total Score: 0 07/24/19 23 3:00 PM EST documented as of this encounter Care Teams Printed Circuit Boards Inspector Relationship Specialty Start Date End Date Trevor Rolon DO [address] [facility] [address] [place] [address] PCP - General Lucy Christopher DO [address] [place] [address] Consulting Physician Oncology 10/17/24 documented as of this encounter
--- OUTSIDE RECORDS SUMMARY | 2025-05-04 09:25 | XMS_ITS | Encounter Summary ---
Author Organization [facility] nter Address [address] [place] [address] Care Team Providers Care Microsoft Crm Developer Name Role Phone Trevor Rolon DO Primary Care Provider Lucy Christopher DO Unavailable Reason for Visit * Reason Comments Med Refill Encounter Details Date Type Department Care Team (Late st Contact Info) Description 09/14/2023 Refill [facility] NEUROLOGY PRACTICE [address], 8th Floor Clinic [place] [phone] Lupe Villalta, TANKAGE GRINDER OPERATOR [address] [facility] [place] [address] Social History Tobacco Use Types [...] any clubs o r organizations such as denominational groups, unions, fraternal or athletic groups, or [...] [facility] MAMMOGR[facility] SERVICES [facility] Ernie 911 [facility] [place] [address] 06/18/2025 10:30 AM EST Office Visit [facility] GASTROENTEROLOGY PRACTICE [address] [facility], 2nd [place] [address] 06/27/2025 10:00 AM EST Office Visit [facility] SLEEP LAB PRACTICE 1 [facility] [place] [address] Demario Silva DO [address] [place] [address] 08/16/2025 10:00 AM EST Office Visit [facility] ENDOCRINOLOGY PRACTICE 1 [facility], 8th [place] [address] Brigitte Mahoney, CLAU [address] [place] [address] 09/18/2025 1:30 PM EDT Office Visit [facility] RHEUMATOLOGY PRACTICE [address], 8th Floor Clinic [place] [address] Suman Treviño MD [address] [place] [address] 12/13/2025 1:15 PM EDT Office Visit [facility] OBGYN PRACTICE [address], 7th Floor Clinic [place] [address] Janice Woodward, CLAU [address] [place] [facility] documented as of this encounter Visit Diagnoses Not on filedocumented in this encounter Additional Health Concerns Assessment Noted Time PHQ-9 Depression Total Score: 0 07/24/19 23 3:00 PM EST documented as of this encounter Care Teams Microsoft Crm Developer Relationship Specialty Start Date End Date Trevor Rolon DO [address] [facility] [address] [place] [address] PCP - General Lucy Christopher DO [address] Bld[address] [place] [address] Consulting Physician Oncology 10/17/24 documented as of this encounter
--- OUTSIDE RECORDS SUMMARY | 2025-05-04 09:25 | XMS_ITS | Encounter Summary ---
Author Organization [facility] nter Address [address] [place] [address] Care Team Providers Care Flask Cleaner Name Role Phone Trevor Rolon DO Primary Care Provider Lucy Christopher DO Unavailable Reason for Visit * Reason Comments Med Refill Encounter Details Date Type Department Care Team (Late st Contact Info) Description 07/08/2024 Refill [facility] ENDOCRINOLOGY PRACTICE [address], 8th Floor Clinic [place] [phone] Brigitte Mahoney, CLAU [address] [place] [place] [address] Social History Tobacco Use Types [...] How often do you attend chur or adventist services? More than 4 times per year [...] EDT Appointment [facility] MAMMOGRAPHY SERVICES FARRUKH Klein [address], [place] [address] 06/18/2025 10:30 AM EST Office Visit [facility] GASTROENTEROLOGY PRACTICE [address], 2nd [place] [address] 06/27/2025 10:00 AM EST Office Visit [facility] SLEEP LAB PRACTICE [address] [place] [place] [address] Demario Silva, [address] [place] [id number] 08/16/2025 10:00 AM EST Office Visit [facility] ENDOCRINOLOGY PRACTICE [address], 8th [place] [address] Brigitte Mahoney NP [address] Bldg [place] [phone] 09/18/2025 1:30 PM EDT Office Visit [facility] RHEUMATOLOGY PRACTICE [address], 8th [place] [address] Suman Treviño MD [address] [facility] [place] [address] 12/13/2025 1:15 PM EDT Office Visit [facility] OBGYN PRACTICE [address], 7th [place] [address] Janice Woodward, CLAU [address] [place] [address] documented as of this encounter Visit Diagnoses Not on filedocumented in this encounter Additional Health Concerns Assessment Noted Time PHQ-9 Depression Total Score: 0 07/24/19 23 3:00 PM EST documented as of this encounter Care Teams Flask Cleaner Relationship Specialty Start Date End Date Trevor Rolon DO [address] [facility] [address] [place] [address] PCP - General Lucy Christopher DO [address] [place] [address] Consulting Physician Oncology 10/17/24 documented as of this encounter
--- OUTSIDE RECORDS SUMMARY | 2025-05-04 09:25 | XMS_ITS | Encounter Summary ---
Author Organization [facility] nter Address [address] [place] [address] Care Team Providers Care Rim Fire Priming Operator Name Role Phone Trevor Rolon DO Primary Care Provider Lucy Christopher DO Unavailable Encounter Details Date Type Department Care Team (Late st Contact Info) Description 04/16/2025 Abstract [facility] GASTROENTEROLOGY PRACTICE [address], 2nd Floor Clinic [place] [phone] El Agarwal, WOOD FENCE ERECTOR [address], [place] [address] Social History Tobacco Use Types Packs/Day Years [...] How often do you attend chur or orthodox services? More than 4 times [...] Info) Description 05/07/2025 3:00 PM EDT Appointment [facility] MAMMOGRAPHY SERVICES [facility] D [address] [place] [address] [facility] [place] [address] 06/18/2025 10:30 AM EST Office Visit [facility] GASTROENTEROLOGY PRACTICE [address] [place] [address], 2nd [place] [address] 06/27/2025 10:00 AM EST Office Visit [facility] SLEEP LAB PRACTICE [address] [place] [address] Demario Silva DO [address] [place] [address] 08/16/2025 10:00 AM EST Office Visit [facility] ENDOCRINOLOGY PRACTICE [address] [place] [address], 8th [place] [address] Brigitte Mahoney NP [address] [place] [address] 09/18/2025 1:30 PM EDT Office Visit [facility] RHEUMATOLOGY PRACTICE [address], 8th [place] [facility] [address] Suman Treviño MD [address] [facility]. [place] [address] 12/13/2025 1:15 PM EDT Office Visit [facility] OBGYN PRACTICE [address], 7th [place] [address] Janice Woodward, CLAU [address] [place] [address] documented as of this encounter Visit Diagnoses Not on filedocumented in this encounter Additional Health Concerns Assessment Noted Time PHQ-9 Depression Total Score: 0 07/24/19 23 3:00 PM EST documented as of this encounter Care Teams Rim Fire Priming Operator Relationship Specialty Start Date End Date Trevor Rolon DO [address] [facility] [address] [place] [address] PCP - General Lucy Christopher DO [address] [place] [address] Consulting Physician Oncology 10/17/24 documented as of this encounter
--- OUTSIDE RECORDS SUMMARY | 2025-05-04 09:25 | XMS_ITS | Encounter Summary ---
Author Organization [facility] nter Address [address] [place] [address] Care Team Providers Care Pony Worker Name Role Phone Trevor Rolon DO Primary Care Provider Lucy Christopher DO Unavailable Reason for Visit * Reason Comments Med Refill Encounter Details Date Type Department Care Team (Late st Contact Info) Description 10/06/2023 Refill [facility] NEUROLOGY PRACTICE [address], 8th Floor Clinic [place] [phone] Lupe Villalta, SMALL PACKAGE AND BUNDLE SORTER CLERK [address] [facility] [place] [address] Social History Tobacco Use Types [...] How often do you attend chur or anabaptism services? More than 4 times per year [...] [facility] MAMMOGRAPHY SERVICES [facility] Ernie 911 [facility] [place] [address] 06/18/2025 10:30 AM EST Office Visit [facility] GASTROENTEROLOGY PRACTICE 1 [facility], 2nd [place] [address] 06/27/2025 10:00 AM EST Office Visit [facility] SLEEP LAB PRACTICE 1 [facility] [place] [address] Demario Silva DO [address] [place] [address] 08/16/2025 10:00 AM EST Office Visit [facility] ENDOCRINOLOGY PRACTICE 1 [facility], 8th [place] [address] Brigitte Mahoney, CLAU [address] [facility] [place] [address] 09/18/2025 1:30 PM EDT Office Visit [facility] RHEUMATOLOGY PRACTICE [address], 8th Floor [place] [address] Suman Treviño MD [address] [place] [address] 12/13/2025 1:15 PM EDT Office Visit [facility] OBGYN PRACTICE [address], 7th Floor Clinic [place] [address] Janice Woodward, CLAU [address] [place] [facility] documented as of this encounter Visit Diagnoses Not on filedocumented in this encounter Additional Health Concerns Assessment Noted Time PHQ-9 Depression Total Score: 0 07/24/19 23 3:00 PM EST documented as of this encounter Care Teams Pony Worker Relationship Specialty Start Date End Date Trevor Rolon DO [address] [facility] [address] [place] [address] PCP - General Lucy Christopher DO [address]ld[address] [place] [address] Consulting Physician Oncology 10/17/24 documented as of this encounter
--- OUTSIDE RECORDS SUMMARY | 2025-05-04 09:25 | XMS_ITS | Encounter Summary ---
Author Organization [facility] Address [address] [place] [address] Care Team Providers Care Color Straining Bag Washer Name Role Phone Trevor Rolon DO Primary Care Provider Lucy Christopher DO Unavailable Reason for Visit * Reason Comments Med Refill Encounter Details Date Type Department Care Team (Late st Contact Info) Description 08/08/2024 Refill [facility] ENDOCRINOLOGY PRACTICE [address], 8th Floor Clinic [place] [phone] Brigitte Mahoney, CLAU [address] [place] [address] Social History Tobacco Use Types [...] FARRUKH Klein [address], [place] [address] 06/18/2025 10:30 AM EST Office Visit [facility] GASTROENTEROLOGY PRACTICE [address], 2nd [place] [address] 06/27/2025 10:00 AM EST Office Visit [facility] SLEEP LAB PRACTICE [address] [place] [address] Demario Silva, [address] [place] [phone] 08/16/2025 10:00 AM EST Office Visit [facility] ENDOCRINOLOGY PRACTICE [address], 8th [place] [address] Brigitte Mahoney NP [address] Bldg [place] [phone] 09/18/2025 1:30 PM EDT Office Visit [facility] RHEUMATOLOGY PRACTICE [address], 8th [place] [address] Suman Treviño MD [address] Katie [facility] [place] [address] 12/13/2025 1:15 PM EDT Office Visit [facility] OBGYN PRACTICE [address], 7th [place] [address] Janice Woodward, CLAU [address] [place] [address] documented as of this encounter Visit Diagnoses Not on filedocumented in this encounter Additional Health Concerns Assessment Noted Time PHQ-9 Depression Total Score: 0 07/24/19 23 3:00 PM EST documented as of this encounter Care Teams Color Straining Bag Washer Relationship Specialty Start Date End Date Trevor Rolon DO [address] [facility] [address] [place] [address] PCP - General Lucy Christopher DO [address] [place] [address] Consulting Physician Oncology 10/17/24 documented as of this encounter
--- OUTSIDE RECORDS SUMMARY | 2025-05-04 09:25 | XMS_ITS | Encounter Summary ---
Author Organization [facility] nter Address [address] [place] [address] Care Team Providers Care Informatics Physician Liaison Name Role Phone Trevor Rolon DO Primary Care Provider Lucy Christopher DO Unavailable Reason for Visit * Reason Comments Med Refill Encounter Details Date Type Department Care Team (Late st Contact Info) Description 10/01/2023 Refill [facility] NEUROLOGY PRACTICE [address], 8th Floor Clinic [place] [phone] Lupe Villalta, DIRECTOR VOICE [address] [facility] [place] [address] Social History Tobacco Use Types [...] Description 05/07/2025 3:00 PM EDT Appointment [facility] MAMMOGRAPHY SERVICES [facility] Ernie 911 [facility] [place] [address] 06/18/2025 10:30 AM EST Office Visit [facility] GASTROENTEROLOGY PRACTICE 1 [facility], 2nd [place] [address] 06/27/2025 10:00 AM EST Office Visit [facility] SLEEP LAB PRACTICE 1 [facility] [place] [address] Demario Silva DO [address] [place] [address] 08/16/2025 10:00 AM EST Office Visit [facility] ENDOCRINOLOGY PRACTICE 1 [facility], 8th [place] [address] Brigitte Mahoney, CLAU [address] [facility] [place] [address] 09/18/2025 1:30 PM EDT Office Visit [facility] RHEUMATOLOGY PRACTICE [address], 8th Floor Clinic [place] [address] Suman Treviño MD [address] [place] [address] 12/13/2025 1:15 PM EDT Office Visit [facility] OBGYN PRACTICE [address], 7th Floor Clinic [place] [address] Janice Woodward, CLAU [address] [place] [facility] documented as of this encounter Visit Diagnoses Not on filedocumented in this encounter Additional Health Concerns Assessment Noted Time PHQ-9 Depression Total Score: 0 07/24/19 23 3:00 PM EST documented as of this encounter Care Teams Informatics Physician Liaison Relationship Specialty Start Date End Date Trevor Rolon DO [address] [facility] [address] [place] [address] PCP - General Lucy Christopher DO [address]ld[address] [place] [address] Consulting Physician Oncology 10/17/24 documented as of this encounter
--- OUTSIDE RECORDS SUMMARY | 2025-05-04 09:25 | XMS_ITS | Encounter Summary ---
Author Organization [facility] nter Address [address] [place] [address] Care Team Providers Care Internal Audit Director Name Role Phone Trveor Rolon DO Primary Care Provider Lucy Christopher DO Unavailable Encounter Details Date Type Department Care Team (Late st Contact Info) Description 07/11/2024 Orders Only [facility] ENDOCRINOLOG[facility] PRACTICE [address], 8th Floor Clinic [place] [phone] Brigitte Mahoney, CLAU [address] [place] [address] Social History Tobacco Use Types [...] How often do you attend chur or roman catholic services? More than 4 [...] Info) Description 05/07/2025 3:00 PM EDT Appointment [facility] MAMMOGRAPHY SERVICES [facility] D [address] [place] [address] [facility] [place] [address] 06/18/2025 10:30 AM EST Office Visit [facility] GASTROENTEROLOGY PRACTICE [address] [place] [address], 2nd [place] [address] 06/27/2025 10:00 AM EST Office Visit [facility] SLEEP LAB PRACTICE 1 [facility] [place] [address] Demario Silva DO [address] [place] [address] 08/16/2025 10:00 AM EST Office Visit [facility] ENDOCRINOLOGY PRACTICE [address] [place] [address], 8th [place] [address] Brigitte Mahoney NP 911 [facility] [place] [address] 09/18/2025 1:30 PM EDT Office Visit [facility] RHEUMATOLOGY PRACTICE [address], 8th Floor [facility] [address] Suman Treviño MD [address] [facility]. [place] [address] 12/13/2025 1:15 PM EDT Office Visit [facility] OBGYN PRACTICE [address], 7th [place] [address] Janice Woodward, CLAU [address] [place] [address] documented as of this encounter Visit Diagnoses Not on filedocumented in this encounter Additional Health Concerns Assessment Noted Time PHQ-9 Depression Total Score: 0 07/24/19 23 3:00 PM EST documented as of this encounter Care Teams Internal Audit Director Relationship Specialty Start Date End Date Trevor Rolon DO [address] [facility] [address] [place] [address] PCP - General Lucy Christopher DO [address] [place] [address] Consulting Physician Oncology 10/17/24 documented as of this encounter
--- OUTSIDE RECORDS SUMMARY | 2025-05-04 09:25 | XMS_ITS | Encounter Summary ---
Author Organization [facility] nter Address [address] [place] [address] Care Team Providers Care Deli Cook Name Role Phone Trevor Rolon DO Primary Care Provider Lucy Christopher DO Unavailable Encounter Details Date Type Department Care Team (Late st Contact Info) Description 10/06/2023 Orders Only [facility] NEUROLOGY PRACTICE [facility] [address] [place] [address] Lupe Villalta, BRAND DESIGNER [address] [facility] [place] [address] Social History Tobacco Use Types [...] Info) Description 05/07/2025 3:00 PM EDT Appointment [facility] MAMMOGRAPHY SERVICES [facility] D [address] [place] [address] [facility] [place] [address] 06/18/2025 10:30 AM EST Office Visit [facility] GASTROENTEROLOGY PRACTICE [address] [place] [address], 2nd [place] [address] 06/27/2025 10:00 AM EST Office Visit [facility] SLEEP LAB PRACTICE 1 [facility] [place] [address] Demario Silva DO [address] [place] [address] 08/16/2025 10:00 AM EST Office Visit [facility] ENDOCRINOLOGY PRACTICE [address] [place] [address], 8th [place] [address] Brigitte Mahoney NP [address] [facility] [place] [address] 09/18/2025 1:30 PM EDT Office Visit [facility] RHEUMATOLOGY PRACTICE [address], 8th [place] [address] Suman Treviño MD [address] [place] [id number] 12/13/2025 1:15 PM EDT Office Visit [facility] OBGYN PRACTICE [address], 7th [place] [address] Janice Woodward, CLAU [address] [place] [facility] documented as of this encounter Visit Diagnoses Not on filedocumented in this encounter Additional Health Concerns Assessment Noted Time PHQ-9 Depression Total Score: 0 07/24/19 23 3:00 PM EST documented as of this encounter Care Teams Deli Cook Relationship Specialty Start Date End Date Trevor Rolon DO [address] [facility] [address] [place] [address] PCP - General Lucy Christopher DO [address] [place] [address] Consulting Physician Oncology 10/17/24 documented as of this encounter
--- OUTSIDE RECORDS SUMMARY | 2025-05-04 09:25 | XMS_ITS | Encounter Summary ---
Author Organization [facility] nter Address [address] [place] [address] Care Team Providers Care Paper Making Machine Operator Name Role Phone Trevor Rolon DO Primary Care Provider Lucy Christopher DO Unavailable Reason for Visit * Reason Comments Med Refill Encounter Details Date Type Department Care Team (Late st Contact Info) Description 09/29/2023 Refill [facility] NEUROLOGY PRACTICE [address], 8th Floor Clinic [place] [phone] Lupe Villalta, REFRIGERATION TECH [address] [facility] [place] [address] Social History Tobacco Use Types [...] EDT Appointment [facility] MAMMOGRAPHY SERVICES [facility] Ernie 911 [facility] [place] [address] 06/18/2025 10:30 AM EST Office Visit [facility] GASTROENTEROLOGY PRACTICE 1 [facility], 2nd [place] [address] 06/27/2025 10:00 AM EST Office Visit [facility] SLEEP LAB PRACTICE 1 [facility] [place] [address] Demario Silva DO [address] [place] [address] 08/16/2025 10:00 AM EST Office Visit [facility] ENDOCRINOLOGY PRACTICE 1 [facility], 8th [place] [address] Brigitte Mahoney, CLAU [address] [facility] [place] [address] 09/18/2025 1:30 PM EDT Office Visit [facility] RHEUMATOLOGY PRACTICE [address], 8th Floor Clinic [place] [address] Suman Treviño MD [address] [place] [address] 12/13/2025 1:15 PM EDT Office Visit [facility] OBGYN PRACTICE [address], 7th Floor Clinic [place] [address] Janice Woodward, CLAU [address] [place] [facility] documented as of this encounter Visit Diagnoses Not on filedocumented in this encounter Additional Health Concerns Assessment Noted Time PHQ-9 Depression Total Score: 0 07/24/19 23 3:00 PM EST documented as of this encounter Care Teams Paper Making Machine Operator Relationship Specialty Start Date End Date Trevor Rolon DO [address] [facility] [address] [place] [address] PCP - General Lucy Christopher DO [address] Bld[address] [place] [address] Consulting Physician Oncology 10/17/24 documented as of this encounter
--- OUTSIDE RECORDS SUMMARY | 2025-05-04 09:25 | XMS_ITS | Encounter Summary ---
Author Organization [facility] nter Address [address] [place] [address] Care Team Providers Care Green Prize Packer Name Role Phone Trevor Rolon DO Primary Care Provider Lucy Christopher DO Unavailable Reason for Visit * Reason Comments Med Refill Encounter Details Date Type Department Care Team (Late st Contact Info) Description 07/06/2024 Refill [facility] ENDOCRINOLOGY PRACTICE [address], 8th Floor Clinic [place] [phone] Brigitte Mahoney, CLAU [address] [place] [address] Social History Tobacco Use Types [...] How often do you attend chur or catholic services? More than 4 times per year 07/24/2022 Do you belong to any clubs o r organizations such as anglican groups, unions, fraternal or athletic groups, or [...] [facility] MAMMOGRAPHY SERVICES JESSA Ernie [address], [place] [address] 06/18/2025 10:30 AM EST Office Visit [facility] GASTROENTEROLOGY PRACTICE 911 [facility] [address], 2nd [place] [address] 06/27/2025 10:00 AM EST Office Visit [facility] SLEEP LAB PRACTICE 911 [facility] [place] [address] Demario Silva DO [address] [place] [address] 08/16/2025 10:00 AM EST Office Visit [facility] ENDOCRINOLOGY PRACTICE [address], 8th Floor Clinic [place] [address] Brigitte Mahoney NP [address] Bld[address] A [place] [address] 09/18/2025 1:30 PM EDT Office Visit [facility] RHEUMATOLOGY PRACTICE [address], 8th Floor [place] [address] Suman Treviño MD [address] [place] [address] 12/13/2025 1:15 PM EDT Office Visit [facility] OBGYN PRACTICE [address], 7th [place] [address] Janice Woodward NP [address] [place] [phone] documented as of this encounter Visit Diagnoses Not on filedocumented in this encounter Additional Health Concerns Assessment Noted Time PHQ-9 Depression Total Score: 0 07/24/19 23 3:00 PM EST documented as of this encounter Care Teams Green Prize Packer Relationship Specialty Start Date End Date Trevor Rolon DO [address] [facility] [address] [place] [address] PCP - General Lucy Christopher DO [address]ld[address] [place] [address] Consulting Physician Oncology 10/17/24 documented as of this encounter
--- OUTSIDE RECORDS SUMMARY | 2025-05-04 09:26 | XMS_ITS | Encounter Summary ---
Author Organization [facility] nter Address [address] [place] [address] Care Team Providers Care Hog Buyer Name Role Phone Trevor Rolon DO Primary Care Provider Lucy Christopher DO Unavailable Encounter Details Date Type Department Care Team (Late st Contact Info) Description 02/14/2024 Orders Only [facility] NEUROLOGY PRACTICE [address], 8th Floor Clinic [place] [phone] Lupe Villalta, ELECTRIC ORGAN ASSEMBLER [address] [place] [address] Social History Tobacco Use Types [...] How often do you attend chur or holiness services? More than 4 times [...] [facility] MAMMOGRAPHY SERVICES [facility] D [address] [place] [address] [facility] [place] [address] 06/18/2025 10:30 AM EST Office Visit [facility] GASTROENTEROLOGY PRACTICE 1 [facility], 2nd [place] [address] 06/27/2025 10:00 AM EST Office Visit [facility] SLEEP LAB PRACTICE 911 [facility] [place] [address] Demario Silva DO [address] [place] [address] 08/16/2025 10:00 AM EST Office Visit [facility] ENDOCRINOLOGY PRACTICE [address] [place] [address], 8th [place] [address] Brigitte Mahoney NP 911 [facility] [place] [address] 09/18/2025 1:30 PM EDT Office Visit [facility] RHEUMATOLOGY PRACTICE [address], 8th [place] [address] Suman Treviño MD [address] [place] [address] 12/13/2025 1:15 PM EDT Office Visit [facility] OBGYN PRACTICE [address], 7th [place] [address] Janice Woodward, CLAU [address] [place] [address] documented as of this encounter Visit Diagnoses Not on filedocumented in this encounter Additional Health Concerns Assessment Noted Time PHQ-9 Depression Total Score: 0 07/24/19 23 3:00 PM EST documented as of this encounter Care Teams Hog Buyer Relationship Specialty Start Date End Date Trevor Rolon DO [address] [facility] [address] [place] [address] PCP - General Lucy Christopher DO [address] [place] [address] Consulting Physician Oncology 10/17/24 documented as of this encounter
--- OUTSIDE RECORDS SUMMARY | 2025-05-04 09:26 | XMS_ITS | Encounter Summary ---
Author Organization [facility] nter Address [address] [place] [address] Care Team Providers Care Art Dealer Name Role Phone Trevor Rolon DO Primary Care Provider Lucy Christopher DO Unavailable Reason for Visit * Reason Comments Med Refill Encounter Details Date Type Department Care Team (Late st Contact Info) Description 01/17/2024 Refill [facility] NEUROLOGY PRACTICE [facility] [address], [address] [place] [address] Lupe Villalta, FABRIC CUTTER [address] [place] [phone] Social History Tobacco Use Types Packs/Day Years [...] How often do you attend chur or jain services? More than 4 times [...] EDT Appointment [facility] MAMMOGRAPHY SERVICES [facility] D 911 [facility], [facility] [place] [address] 06/18/2025 10:30 AM EST Office Visit [facility] GASTROENTEROLOGY PRACTICE 911 [facility], 2nd [place] [address] 06/27/2025 10:00 AM EST Office Visit [facility] SLEEP LAB PRACTICE 911 [facility] [place] [address] Demario Silva DO [address] [place] [address] 08/16/2025 10:00 AM EST Office Visit [facility] ENDOCRINOLOGY PRACTICE 911 [facility], 8th [place] [address] Brigitte Mahoney NP 911 [facility] [place] [address] 09/18/2025 1:30 PM EDT Office Visit [facility] RHEUMATOLOGY PRACTICE [address], 8th Floor Clinic [place] [address] Suman Treviño MD [address] [place] [address] 12/13/2025 1:15 PM EDT Office Visit [facility] OBGYN PRACTICE [address], 7th Floor Clinic [place] [address] Janice Woodward, CLAU [address] [place] [phone] documented as of this encounter Visit Diagnoses Not on filedocumented in this encounter Additional Health Concerns Assessment Noted Time PHQ-9 Depression Total Score: 0 07/24/19 23 3:00 PM EST documented as of this encounter Care Teams Art Dealer Relationship Specialty Start Date End Date Trevor Rolon DO [address] [facility] [address] [place] [address] PCP - General Lucy Christopher DO [address] [place] [address] Consulting Physician Oncology 10/17/24 documented as of this encounter
--- OUTSIDE RECORDS SUMMARY | 2025-05-04 09:26 | XMS_ITS | Encounter Summary ---
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) Abnormal tumor markers Procedures US liver doppler [place] DUP-SCAN ARTL [place] ABDL/PEL/SCROT&/RPR ORGN LMT Aubrie Hyde NP 1 [place] [address] Phone: tel: fax: [facility] [address], 2nd [place] [address] Phone: tel: fax: Referral ID Status Reason Start Date Expiration Date V isits Requested Visits Authorized [id number] Closed Specialty Services Required 02/21/2024 02/20/2025 1 1 Encounter Details Date Type Department Care Team (Latest Contact Info) Description 02/21/2024 Orders Only [facility] GASTROENTEROLOGY [...] you attend [facility] or rastafari services? More than 4 [...] Info) Description 05/07/2025 3:00 PM EDT Appointment [facility] MAMMOGRAPHY SERVICES BL D [address], [place] [address] 06/18/2025 10:30 AM EST Office Visit [facility]STROENTEROLOGY PRACTICE [address], 2nd [place] [address] 06/27/2025 10:00 AM EST Office Visit [facility] SLEEP LAB PRACTICE [address], Tommy [facility] [place] [address] Demario Silva DO [address] [place] [phone] 08/16/2025 10:00 AM EST Office Visit [facility] ENDOCRINOLOGY PRACTICE [address], 8th [place] [address] Brigitte Mahoney NP [address] [facility] A [place] [phone] 09/18/2025 1:30 PM EDT Office Visit [facility] RHEUMATOLOGY PRACTICE [address], 8th [place] [address] Suman Treviño MD [address] [facility]. [place] [address] 12/13/2025 1:15 PM EDT Office Visit [facility] OBGYN PRACTICE [address], 7th [place] [address] Janice Woodward NP [address] [place] [phone] documented as of this encounter Results * [...] Newton MD 04/29/2024 10:41 AM EDT RPWorkstation: [id number] us Aubrie May HOOP RIVETER IMG US PROCEDURES Final Result * AFP tumor marker (04/28/2024 9:32 AM EDT) [facility] AFP Tumor Marker 6.5 0.0 - 9.2 ng/mL 04/29/2024 4:06 AM EDT [facility] Comment: [employer] Electrochemiluminescence Immunoassay (ECLIA) Values obtained with different assay methods or kits cannot be used interchangeably. Results cannot be interpreted as absolute evidence of the presence or absence of malignant disease. This test is not interpretable in females. Blood Venous blood specimen / Unknown Venipuncture / Unknown 04/28/2024 9:32 AM EDT 04/28/2024 9:32 AM EDT Narrative [facility]) - 04/29/2024 4:06 AM EDT Performed at: [address] [place] [address] [id number] [employer] Yard Worker: Raphael Edwards PhD, Phone: [phone] us Aubrie May HOOP RIVETER LAB BLOOD ORDERABLES Final Resul t BYRON PETERSON) [address] [place] [address], * (ABNORMAL) Protime-INR (04/28/2024 9:32 AM EDT) [facility] Protime 12.9(H) 9.2 - 12.5 seconds LAB COAGULATION METHOD 04/28/2024 10:35 AM EDT [facility] LABOR[facility] INR 1.22(H) 0.84 - 1.18 LAB COAGULATION METHOD 04/28/2024 10:35 AM EDT [facility] Comment: The INR should only be used in stable anticoagulated patients. Recommended therapeutic ranges: Condition INR Prevention or treatment of DVT 2.0-3.0 Acute AR Prevention of Stroke 2.0-3.0 Prevention of recurrent AR 2.5-3.5 Atrial fibrillation Prevention of systemic embolism 2.0-3.0 Cardiac valve replacement (mechanical valves) 2.5-3.5 Blood Venous blood specimen / Unknown Venipuncture / Unknown 04/28/2024 9:32 AM EDT 04/28/2024 9:32 AM EDT us Aubrie May HOOP RIVETER LAB BLOOD ORDERABLES Final Resul t Performing Organization Address City/[facility] Co de Phone Number [facility]OR[facility] [address] [place] [address], [place] [phone] * (ABNORMAL) Hepatic function panel (04/28/2024 9:32 AM EDT) Total Bilirubin 1.5(H) 0.3 - 1.0 mg/dL 04/28/2024 11:09 AM EDT [facility] Bilirubin, Direct 0.4(H) 0.0 - 0.2 mg/dL 04/28/2024 11:09 AM [facility] Alkaline Phosphatase 179(H) 29 - 108 U/L 04/28/2024 11:09 AM T [facility] AST 53(H) 10 - 28 U/L 04/28/2024 11:09 AM [facility] ALT (SGPT) 30 <=40 U/L 04/28/2024 11:09 AM T [facility] Albumin 3.7 3.5 - 5.1 g/dL 04/28/2024 11:09 AM [facility] Total Protein 7.3 5.9 - 7.9 g/dL 04/28/2024 11:09 AM EDT [facility] Blood Venous blood specimen / Unknown Venipuncture / Unknown 04/28/2024 9:32 AM EDT 04/28/2024 9:32 AM EDT Narrative [facility] - 04/28/2024 11:09 AM EDT Results for ALT may be adversely affected when samples are collected on patients taking Sulfasalazine and/or Sulfapyridine. Please note possible changes in reference range and units reported due to change in methodology. us Aubrie Hyde HOOP RIVETER LAB BLOOD ORDERABLES Final Resul t [facility] [address] [place] [address], * (ABNORMAL) Basic metabolic panel (04/28/2024 9:32 AM EDT) Glucose 117(H) 58 - 104 mg/dL 04/28/2024 11:49 AM [facility] Sodium 139 134 - 143 mmol/L 04/28/2024 11:49 AM [facility] Potassium 3.6 3.2 - 4.6 mmol/L 04/28/2024 11:49 AM [facility] Chloride 105 99 - 108 mmol/L 04/28/2024 11:49 AM [facility] CO2 28 19 - 29 mmol/L 04/28/2024 11:49 AM [facility] Anion Gap 6 5 - 15 mmol/L 04/28/2024 11:49 AM [facility] BUN 15 7 - 20 mg/dL 04/28/2024 11:49 AM [facility] Creatinine 0.83 <=1.20 mg/dL 04/28/2024 11:49 AM [facility] BUN/Creatinine Ratio 18.07 10.00 - 20.00 ratio 04/28/2024 11:49 AM [facility] Calcium 9.6 7.9 - 11.1 mg/dL 04/28/2024 11:49 AM [facility] eGFR (CKD-EPI) 80.2 >60.0 - 200.0 mL/min/1.7 3m*2 04/28/2024 11:49 AM [facility] Blood Venous blood specimen / Unknown Venipuncture / Unknown 04/28/2024 9:32 AM EDT 04/28/2024 9:32 AM [facility] LABORATORY - 04/28/2024 11:49 AM EDT Please note possible changes in reference range and units reported due to change in methodology. us Aubrie Hyde NP LAB BLOOD ORDERABLES Final Resul t Performing Organization Address City/[facility]/ZIP Co de Phone Number [facility] [address] [place] [address], [place] [phone] * (ABNORMAL) CBC (04/28/2024 9:32 AM EDT) Auto WBC 4.8 3.8 - 11.0 10*3/uL 04/28/2024 10:21 AM EDT [facility] RBC 4.43 3.73 - 5.13 10*6/uL 04/28/2024 10:21 AM [facility] Hemoglobin 14.9 11.2 - 15.3 g/dL 04/28/2024 10:21 AM [facility] Hematocrit 42.9 32.6 - 44.6 % 04/28/2024 10:21 AM [facility] MCV 96.9(H) 78.8 - 96.0 fL 04/28/2024 10:21 AM [facility] MCH 33.6(H) 26.2 - 33.0 pg 04/28/2024 10:21 AM [facility] MCHC 34.7 32.7 - 35.1 g/dL 04/28/2024 10:21 AM [facility] RDW 13.1 12.1 - 16.1 % 04/28/2024 10:21 AM [facility] Platelets 93(L) 138 - 402 10*3/uL 04/28/2024 10:21 AM [facility] MPV 8.2 7.0 - 10.6 fL 04/28/2024 10:21 AM [facility] Blood Venous blood specimen / Unknown Venipuncture / Unknown 04/28/2024 9:32 AM EDT 04/28/2024 9:32 AM EDT us Aubrie May HOOP RIVETER LAB BLOOD ORDERABLES Final Resul t [facility] [address] [place] [address], [place] [phone] documented in this encounter Visit Diagnoses Diagnosis [...] documented as of this encounter Care Teams Commercial Illustrator Relationship Specialty Start Date End Date Trevor Rolon DO [address] [facility] [address] [place] [address] PCP - General Lucy Christopher DO [address] [facility] [address] [facility] [place] [address] Consulting Physician Oncology 10/17/24 documented as of this encounter
--- OUTSIDE RECORDS SUMMARY | 2025-05-04 09:26 | XMS_ITS | Encounter Summary ---
Author Organization [facility] nter Address [address] [place] [address] Care Team Providers Care Journalists And Other Writers Name Role Phone Trevor Rolon DO Primary Care Provider Lucy Christopher DO Unavailable Encounter Details Date Type Department Care Team (Late st Contact Info) Description 02/16/2024 Orders Only [facility]STROENTEROLOG[facility] PRACT[facility] [address], 2nd [place] [phone] Rosita Cortez, CORWIN [address] [place] [phone] Social History Tobacco Use Types Packs/Day Years [...] How often do you attend [facility] or confucianism services? More than 4 times per year 07/24/2022 Do you belong to any clubs o r organizations such as sikh groups, unions, fraternal or athletic groups, or [...] PM EDT Appointment [facility] MAMMOGRAPHY SERVICES [facility] D [address] [facility], [facility] [place] [address] 06/18/2025 10:30 AM EST Office Visit [facility] [address] [facility], 2nd [place] [address] 06/27/2025 10:00 AM EST Office Visit [facility] SLEEP LAB PRACTICE [address] [place] [address] Demario Silva DO 911 [place] [address] 08/16/2025 10:00 AM EST Office Visit [facility] ENDOCRINOLOGY PRACTICE 1 [facility], 8th [place] [address] Brigitte Mahoney NP 911 [facility] [place] [address] 09/18/2025 1:30 PM EDT Office Visit [facility] RHEUMATOLOGY PRACTICE [address], 8th [place] [address] Suman Treviño MD [address] [place] [facility] 12/13/2025 1:15 PM EDT Office Visit [facility] OBGYN PRACTICE [address], 7th [place] [address] Janice Woodward, CLAU [address] [place] [address] documented as of this encounter Visit Diagnoses Not on filedocumented in this encounter Additional Health Concerns Assessment Noted Time PHQ-9 Depression Total Score: 0 07/24/19 23 3:00 PM EST documented as of this encounter Care Teams Journalists And Other Writers Relationship Specialty Start Date End Date Trevor Rolon DO [address] [facility] [address] [place] [id number] PCP - General Lucy Christopher DO [address] [facility] Katie [place] [address] Consulting Physician Oncology 10/17/24 documented as of this encounter
== END 2025-05-02 23:59 ==
LOC: LAB.DROPOF 05-04 09:01
PROVIDERS: Visit Provider Student in an Organized Health Care Education/Training Program
DX: J02.9 Acute pharyngitis, unspecified (principal)
CPT/HCPCS: 87070

== ENCOUNTER 2025-05-23 22:48 | Emergency (ER) | payer OTHER, SELFPAY ==
--- OUTSIDE RECORDS SUMMARY | 2025-03-08 07:00 | XMS_ITS | Encounter Summary ---
Author Organization [facility] Address [address] [place] [address] Care Team Providers Care Lay Out Drafter Name Role Phone Trevor Rolon DO Primary Care Provider [phone] Mc Grant DO Unavailable [phone] El Agarwal AIR BRAKE RIGGER Unavailable [phone] Reason for Referral * Consultation (Routine) - Closed Specialty Diagnoses / Procedures Referred By Truong bella Referred To Contact Neurosurgery Diagnoses Lumbosacral radiculopathy Claire Davidson MD [address] [address] Phone: tel: fax: Referral ID Status Reason Start Date Expiration Date V isits Requested Visits Authorized [id number] Closed Specialty Services Required 03/08/2025 09/07/2026 1 1 * Imaging (Routine) - Closed Specialty Diagnoses / Procedures Referred By Truong bella Referred To Contact Radiology Diagnoses Lumbosacral radiculopathy Procedures MR Cervical Spine wo IV Contrast Claire Davidson MD [id number] [place] [address] Phone: tel: fax: Referral ID Status Reason Start Date Expiration Date Visits Re quested Visits Authorized [id number] Closed 03/08/2025 09/07/2026 1 1 * Other Medical (Routine) - Pending Review Specialty Diagnoses / Procedures Referred By Truong t Referred To Contact Neurology Diagnoses Lumbosacral radiculopathy Procedures EMG / Nerve Conduction Study Claire Davidson MD [address] [address] Phone: tel: fax: Referral ID Status Reason Start Date Expiration Date Visits Requested Visits Authorized [id number] Pending Review Specialty Services Required 03/08/2025 09/07/2026 1 1 Reason for Visit * Reason Comments Consult * Consultation (Routine) - Closed Specialty Diagnoses / Procedures Referred By Truong t Referred To Contact Neurology Diagnoses Neuropathic pain, leg, bilateral Laquita Corral PA [address] [place] [address] Phone: tel: fax: Referral ID Status Reason Start Date Expiration Date V isits Requested Visits Authorized [id number] Closed Specialty Services Required 03/04/2025 09/03/2026 1 1 Encounter Details Date Type Department Care Team ([facility] st Contact Info) Description 03/08/2025 8:00 AM EDT Consult [facility] [address] [facility], [address] [place] [address] Claire Davidson MD [address] [address] Lumbosacral radiculopathy (Primary Dx) Social [...] documented in this encounter Functional Status * Over the past 2 weeks, how often have you been bothered by any of the following problems? Question Answer Date of Assessment Author Little interest or pleasure in doing things Not at all 05/18/2025 10:47 AM Adriane Pritchard Feeling down, depressed, or hopeless Not at all 05/18/2025 10:47 AM Adriane Pritchard Patient Health Questionnaire -2 Score 0 05/18/2025 10:47 AM Adriane Pritchard * Question Answer Date of Assessment Author Trouble falling or staying asleep, or sleeping too much Nearly every day 04/03/2025 7:06 AM EDT Sanford Jones A Feeling tired or having little energy Nearly every day 04/03/2025 7:06 AM EDT Sanford Jones A Poor appetite or overeating Nearly every day 04/03/2025 7:06 AM EDT Sanford Jones A Feeling bad about yourself - or that you are a failure or have let yourself or your family down Nearly every day 04/03/2025 7:06 AM DAINAT Sanford Jones Trouble concentrating on things, such as reading the newspaper or watching television More than half the days 04/03/2025 7:06 AM Sanford [place] Moving or speaking so slowly that other people could have noticed? Or the opposite - being so fidgety or restless that you have been moving around a lot more than usual. Not at all 04/03/2025 7:06 AM Sanford [place] Thoughts that you would be better off or hurting yourself in some way Several days 04/03/2025 7:06 AM Sanford [place] Patient Health Questionnaire-9 Score 18 04/03/2025 7:06 AM Sanford [place] * How difficult have these problems made it for you to do your work, take care of things at home, or get along with other people? Answer Date of Assessment Author Very difficult 04/03/2025 7:06 AM Eloisa [place] documented as of this encounter Miscellaneous Notes * Progress Notes - Claire Davidson MD - 03/08/2025 8:00 AM EDT I saw Trudy Peña as a new patient at the [facility] on 03/08/2025 in consultation for concern for neuropathy. Referring provider: Laquita Corral PA [address] [place] [address] HPI: Mr/Ms Trudy Peña is a 54 [...] proximal upper extremity weakness, some difficulty with certified legal secretary specialist strength. Endorses radicular low back pain. Reports [...] Surgical History: Surgical History[2] Social History: Address: [address] [place], [place] [id number] Medications: Current Medications[3] Allergies: Allergies[4] Exam: There [...] abduction 5/5 5/5 Shoulder ext rotation 5/5 5/5 Elbow flexion 5/5 5/5 Elbow extension 5/5 5/5 Wrist extension 5/5 5/5 Wrist flexion 5/5 5/5 Finger abduction - FDI 5/5 5/5 Finger abduction - ADM 5/5 5/5 Finger extension 5/5 5/5 Deep Finger Flexion 5/5 5/5 Thumb abduction (APB) 5/5 5/5 Hip flexion 5/5 5/5 Knee extension 5/5 5/5 Knee flexion 5/5 4+/5 Dorsiflexion 5/5 4+/5 Plantarflexion 5/5 4/5 Ankle eversion 5/5 4/5 Ankle inversion 5/5 4/5 Reflexes: Right Left Bicep 2/4 2/4 Tricep [...] Study RTC 2 months. Claire Davidson MD Atmospheric Physics Professor, Department of Neurology Neuromuscular Medicine Program Counseling [...] (congestive heart failure) (CMS/HCC) Diabetes mellitus (CMS/HCC) 2020 History of transfusion Hypertension 2017 Iritis Iritis Migraine Osteomyelitis of vertebra, site unspecified (CMS/HCC) Spinal abscess Personal history of other diseases of the female genital tract History of ovarian cyst Unspecified cirrhosis of liver (CMS/HCC) Non-alcoholic cirrhosis [2] Past Surgical History: Procedure Laterality Date APPENDECTOMY BACK SURGERY N/A 1994 BACK SURGERY 2009 BREAST SURGERY N/A Breast Surgery Reduction Procedure Bilateral from [facility] EXPLORATORY LAPAROTOMY GALLBLADDER SURGERY 2018 GANGLION CYST EXCISION, WRIST Left INCISION AND DRAINAGE, ABCESS 2010 from back LIVER BIOPSY OTHER SURGICAL HISTORY N/A Exploratory Laparotomy from [facility] OVARIAN CYST DRAINAGE N/A Aspiration Of Ovarian Cyst from [facility] TOTAL ABDOMINAL HYSTERECTOMY N/A 2011 Hysterectomy from [facility] [3] Current Outpatient Medications Medication Sig Dispense [...] TIMES DAILY ergocalciferol (Vitamin D-2) 1.25 MG (47346 UT) capsule Take 1 capsule (50,000 Units) [...] Care Team (Late st Contact Info) Description 05/25/2025 11:30 AM EST Appointment [facility] [address] [place] [address] 05/25/2025 2:00 PM EST Appointment [facility] Pulmonary Function Testing [address] [place] [address] 05/25/2025 3:30 PM EST Appointment Cardiac Imaging [address] [place] [address] 05/31/2025 4:30 PM EST Appointment [facility] [address] [place] [address] 06/12/2025 2:30 PM EST Office Visit [facility] [place] [facility] [address] [facility], [address] [place] [address] Juana Gale, AIR BRAKE RIGGER [address] [place] [address] 06/20/2025 10:30 AM EST Procedure Visit [facility] [address] [place] [address] Claire Davidson MD [address] [facility] [place] [address] 06/21/2025 2:00 PM EST Office Visit [facility] [address] [facility], [address] [place] [address] Claire Davidson MD [address] [facility] [place] [address] 07/17/2025 8:45 AM EST Clinical Support [facility] [address] [phone] 07/17/2025 10:30 AM EST Office Visit [facility] [place] [id number] [address] Nj Johns MD [address] [place] [address] Scheduled Orders Name Type Priority Associated Diagnoses [...] Assessment Noted Time PHQ-9 Depression Total Score: 024 7:48 AM EDT A fall risk assessment has been complete d for the patient 03/08/2025 8:18 AM EDT A Body Mass Index follow-up plan has been documented for the patient 03/08/2025 9:29 AM EDT documented as of this encounter Care Teams Lay Out Drafter Relationship Specialty Start Date End Date Trevor Rolon DO [address] [facility] [address] [place] [address] PCP - General 11/22/20 Mc Grant DO [address] [facility] [address] [place] [address] Referring Physician Gastroenterology 02/21/24 El Agarwal APRN [address] [place] [address] Referring Physician Gastroenterology 03/21/25 documented as of this encounter
--- OUTSIDE RECORDS SUMMARY | 2025-03-27 09:30 | XMS_ITS | Encounter Summary ---
Author Organization [facility] Address [address] [place] [address] Care Team Providers Care Sandwich And Drink Cart Operator Name Role Phone Trevor Rolon DO Primary Care Provider Lucy Christopher DO Unavailable Reason for Visit * Reason Comments Vaginal Rash Pt states this past weekend she developed a rash in vaginal area - blisters, painful. Encounter Details Date Type Department Care Team (Late st Contact Info) Description 03/27/2025 10:30 AM EDT Office Visit [facility] [address] 7[address] Floor Clinic [place] [phone] Janice Woodward, CLAU [address] [place] [address] Acute vaginitis (Primary Dx) Social History Tobacco Use Types [...] any clubs o r organizations such as jain groups, unions, fraternal or athletic groups, or [...] Sign Reading Time Taken Comments Blood Pressure 122/75 03/27/2025 10:25 AM EDT Pulse 109 03/27/2025 10:25 AM EDT Temperature - - Respiratory Rate - - Oxygen Saturation - - Inhaled Oxygen Concentration - - Weight 80.9 kg (178 lb 6.4 oz) 03/27/2025 10:25 AM EDT Height 170.2 cm (5' 7 ) 03/27/2025 10:25 AM EDT Body Mass Index 27.94 03/27/2025 10:25 AM EDT documented in this encounter Progress Notes * Janice Woodward NP - 03/27/2025 10:30 AM EDT Subjective Patient ID: Trudy Peña is a 54 y.o. female who presents for Vaginal Rash (Pt states this past weekend she developed a rash in vaginal area - blisters, painful. ). Objective OBGyn Exam Assessment/Plan 1. Acute vaginitis - Vaginitis Panel; Future - C. trachomatis / N. gonorrhoeae, DNA probe; Future - valACYclovir (Valtrex) 1 g tablet; Take 1 tablet (1,000 mg) by mouth in the morning and at bedtime for 10 days. - valACYclovir (Valtrex) 500 MG tablet; Take 1 tablet (500 mg) by mouth in the morning. 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 Acute vaginitis - possible HSV Sent Valtrex. Follow up as scheduled. The medication list for this visit has been reviewed and reconciled. Reviewed by Marcelina Hyde NP (Nurse Practitioner) on 03/28/25 at 0850 documented in this encounter Plan of Treatment Upcoming Encounters Date Type Department Care Team (Late st Contact Info) Description 06/18/2025 10:30 AM EST Office Visit [facility] GASTRO[facility]ACTICE [address] 2[address] [place] [address] 06/27/2025 10:00 AM EST Office Visit [facility] SLEEP LAB PRACTICE [address] [place] [phone] Demario Silva DO [address] [place] [address] 08/16/2025 10:00 AM EST Office Visit [facility] ENDOCRINOLOGY PRACTICE [address] [place] [address] Brigitte Mahoney NP [address] [place] [address] 09/18/2025 1:30 PM EDT Office Visit [facility] RHEUMATOLOGY PRACTICE [address] [place] [address] Suman Treviño MD [address] [place] [address] 12/13/2025 1:15 PM EDT Office Visit [facility] [address], 7[address] Floor Clinic [place] [phone] Janice Woodward NP [address] [place] [phone] documented as of this encounter Procedures Procedure Name Priority Date/Time Associated Diagnosis Comments HEPATITIS PANEL, ACUTE Routine 03/27/2025 11:52 AM EDT Acute vaginitis documented in this encounter Results * (ABNORMAL) Herpes simplex virus culture (03/27/2025 12:42 PM EDT) HSV Culture Positive(A ) 03/31/2025 2:07 PM EDT [facility] ([place]) Swab Cervical swab / Unknown Non-blood Collection / Unknown 03/27/2025 12:42 PM EDT 03/27/2025 8:03 PM EDT Narrative [facility] N[place]) - 03/31/2025 2:07 PM EDT Performed at: - [address] [id number] Crocodile Farmer: Raphael Edwards PhD, Phone: [phone] Janice Woodward RAND CEMENTER LAB MICROBIOLOGY - GENER AL ORDERABLES Final Result [facility] N[place]) [address] [place] [address], * (ABNORMAL) Herpes Simplex Virus (HSV) Types 1 & 2 Specific Antibodies (03/27/2025 11:52 AM EDT) HSV 1 IgG, Type Spec Reactive( A) Non Reactive 03/28/2025 8:07 AM EDT [facility] ([place]) Comment: Please note reference interval change HSV-1 IgG testing performed using the [employer] HSV-1 IgG assay. HSV 2 IgG Type Spec Reactive( A) Non Reactive 03/28/2025 8:07 AM EDT [facility] NICHOLAS) Comment: Please note reference interval change Current guidelines and recommendations do not recommend routine screening for HSV-2 in asymptomatic individuals, including those that are . The detection of HSV-2 IgG antibodies in a single sample indicates previous exposure to HSV-2 but does not give information as to the site of HSV infection or the timing of exposure. The predictive value of positive and negative results depends on the population's prevalence and the pretest likelihood of HSV-2. HSV-2 IgG testing performed using the [employer] HSV-2 IgG assay. Blood Venous blood specimen / Unknown Venipuncture / Unknown 03/27/2025 11:52 AM EDT 03/27/2025 12:17 PM EDT [facility] NICHOLAS) - 03/28/2025 8:07 AM EDT Performed at: [address] [place] [id number] Crocodile Farmer: Raphael Edwards PhD, Phone: [phone] Janice Woodward NP LAB BLOOD ORDERABLES [facility] al Result [facility]) [address] [place] [address], * Hepatitis panel, acute (03/27/2025 11:52 AM EDT) Hepatitis B Surface Ag Nonreactive Nonreactive 03/27/2025 1:26 PM EDT [facility] Hep A IgM Nonreactive Nonreactive 03/27/2025 1:26 PM EDT [facility] Hep B Core IgM Nonreactive Nonreactive 03/27/2025 1:26 PM EDT [facility] Hepatitis C Ab Nonreactive Nonreactive 03/27/2025 1:26 PM EDT [facility] Blood Venous blood specimen / Unknown Venipuncture / Unknown 03/27/2025 11:52 AM EDT 03/27/2025 12:17 PM EDT Janice Woodward NP LAB BLOOD ORDERABLES Fin al Result [facility] [address] [place] [address], [place] [phone] * RPR W/Reflex (Reference Lab) (03/27/2025 11:52 AM EDT) RPR Non Reactive Non Reactive 03/28/2025 8:07 AM EDT [facility] ([place]) Blood Venous blood specimen / Unknown Venipuncture / Unknown 03/27/2025 11:52 AM EDT 03/27/2025 12:17 PM EDT Narrative [facility] ([place]) - 03/28/2025 8:07 AM EDT Performed at: - [address] [id number] Crocodile Farmer: Raphael Edwards PhD, Phone: [phone] Janice Woodward NP LAB BLOOD ORDERABLES Fin al Result [facility] ([place]) [facility] [place] [address], [place] [phone] * HIV Ag/Ab with Reflex (03/27/2025 11:52 AM EDT) HIV Ag/Ab (4th Gen) Nonreactive Nonreactive 03/27/2025 1:02 PM EDT [facility] Blood Venous blood specimen / Unknown Venipuncture / Unknown 03/27/2025 11:52 AM EDT 03/27/2025 12:17 PM EDT Narrative [facility] - 03/27/2025 1:02 PM EDT Screening test only. Janice Woodward NP LAB BLOOD ORDERABLES Fin al Result [facility] [address] [place] [address], [place] [phone] documented in this encounter Visit Diagnoses Diagnosis Acute vaginitis- Primary Unspecified vaginitis and vulvovaginitis documented in this encounter Additional Health Concerns Assessment Noted Time PHQ-9 Depression Total Score: 0 07/24/19 23 3:00 PM EST documented as of this encounter Care Teams Sandwich And Drink Cart Operator Relationship Specialty Start Date End Date Trevor Rolon DO [address] [facility] [address] [place] [address] PCP - General Lucy Christopher DO [address] [facility] [address] [facility] [place] [address] Consulting Physician Oncology 10/17/24 documented as of this encounter
--- OUTSIDE RECORDS SUMMARY | 2025-03-27 10:00 | XMS_ITS | Encounter Summary ---
Author Organization [facility] nter Address [address] [place] [address] Care Team Providers Care Prior Authorization Technician Name Role Phone Trevor Rolon DO Primary Care Provider Lucy Christopher DO Unavailable Reason for Visit * Reason Comments Ankle Pain Encounter Details Date Type Department Care Team (Latest Contact Info) Description 03/27/2025 11:00 AM EDT Office Visit [facility] OR[facility]IC P[facility]RY PRACTICE [address] 6th [place] [address] Alexandr Zarate DPM [address] [facility] [address] [facility] [place] [address] Diabetic polyneuropathy associated with type [...] week 07/24/2022 How often do you attend [facility] or caodaism services? More than 4 times per year 07/24/2022 Do you belong to any clubs o r organizations such as rastafarian groups, unions, fraternal or athletic groups, or [...] the money to buy more. Never true 01/13/20 23 Within the past 12 months, t [...] Sign Reading Time Taken Comments Blood Pressure 113/70 03/27/2025 11:08 AM EDT Pulse 90 03/27/2025 11:08 AM EDT Temperature - - Respiratory Rate - - Oxygen Saturation - - Inhaled Oxygen Concentration - - Weight 80.7 kg (178 lb) 03/27/2025 11:08 AM EDT Height 170.2 cm (5' 7 ) 03/27/2025 11:08 AM EDT Body Mass Index 27.88 03/27/2025 11:08 AM EDT documented in this encounter Progress Notes * Alexandr Zarate DPM - 03/27/2025 11:00 AM EDT Subjective Patient ID: Trudy Peña is a 54 y.o. female who presents for Ankle Pain. Pt is here for a follow up on achilles tendinitis. Pt is ambulatory without assistance and is diabetic. Ankle Pain Social History: Social History Socioeconomic History Marital [...] date: 2014 Quit date: 2021 Years since quittin.7 Passive exposure: Past Smokeless tobacco: Never Vaping Use Vaping status: Never Used Substance and Sexual Activity Alcohol use: Never Drug use: Never Sexual activity: Not Currently Partners: Male control/protection: Surgical Comment: hysterectomy Other [...] min Stress: No Stress Concern Present (07/24/2022) [employer] [facility] [employer]ational [facility] - Occupational Stress Questionnaire Feeling of Stress : Not at all Social Connections: Unknown (04/19/2023) Received from [facility] Family and Community Support Help with Day-to-Day Activities: Not on file Lonely or Isolated: Not on file Intimate Partner Violence: Unknown (04/19/2023) Received from [facility] Abuse Screen Unsafe at Home or Work/School: Not on file Feels Threatened by Someone?: Not on file Does Anyone Keep You from Contacting Others or Doint Things Outside the Home?: Not on file Physical Sign of Abuse Present: Not on file Housing Stability: Unknown (04/19/2023) Received from [facility] Housing Stability Current Living Arrangements: Not on [...] Comments Bilateral calcaneal enthesophyte/left greater than the right, pain on palpation to the left Achilles insertion has resolved Assessment/Plan 1. Diabetic polyneuropathy associated with type 2 diabetes mellitus -Pt seen and evaluated. advised to maintain good glycemic control, and to monitor daily to help optimize healing. Discussed importance of taking medications and regular BS checks. -Qutenza was approved, Qutenza treatment was unable to be done today because patient had to go to another appointment and could stay the required time. -Patient is to follow up on 04/11/2025 for Qutenza treatment. 2. Achilles tendinitis of left lower extremity -Patient was seen and evaluated today in clinic. Discussed the condition and treatment options withthe patient. -Patient states pain has improved with HEP. -Patient is to follow up PRN. 3. Bilateral calcaneal spurs -See above 4. Pain in both feet -See above documented in this encounter Miscellaneous Notes * Patient Education - Marion Chaney RN - 03/27/2025 11:04 AM EDT Images from the original note were not included. Patient Education Table of Contents Diabetes Mellitus and Foot Care To view videos and all your education online visit, [email or web address] or scan this QR code with your smartphone. Access to this content will in one year. Diabetes Mellitus and Foot Care Diabetes, also called diabetes mellitus, may cause problems with your feet and legs because of poorblood flow (circulation). Poor circulation may make your skin: Become thinner and vacuum drum drier operator. Break more easily. Heal more slowly. Peel and crack. You may also have nerve damage (neuropathy). This can cause decreased feeling in your legs and feet. This means that you may not notice minor injuries to your feet that could lead to more serious problems. Finding and treating problems early is the best way to prevent future foot problems. How to care for your feet Foot hygiene Wash your feet daily with warm water and mild soap. Do not use hot water. Then, pat your feet and the areas between your toes until they are fully dry. Do not soak your feet. This can dry your skin. Trim your toenails straight across. Do not dig under them or around the cuticle. File the edges of your nails with an emery board or nail file. Apply a moisturizing lotion or petroleum jelly to the skin on your feet and to dry, brittle toenails. Use lotion that does not contain alcohol and is unscented. Do not apply lotion between your toes. Shoes and socks Wear clean socks or stockings every day. Make sure they are not too tight. Do not wear knee-high stockings. These may decrease blood flow to your legs. Wear shoes that fit well and have enough cushioning. Always look in your shoes before you put them on to be sure there are no objects inside. To break in new shoes, wear them for just a few hours a day. This prevents injuries on your feet. Wounds, scrapes, corns, and calluses Check your feet daily for blisters, cuts, bruises, sores, and redness. If you cannot see the bottomof your feet, use a mirror or ask someone for help. Do not cut off corns or calluses or try to remove them with medicine. If you find a minor scrape, cut, or break in the skin on your feet, keep it and the skin around it clean and dry. You may clean these areas with mild soap and water. Do not clean the area with peroxide, alcohol, or iodine. If you have a wound, scrape, corn, or callus on your foot, look at it several times a day to make sure it is healing and not infected. Check for: ? Redness, swelling, or pain. ? Fluid or blood. ? Warmth. ? Pus or a bad smell. General tips Do not cross your legs. This may decrease blood flow to your feet. Do not use heating pads or hot water bottles on your feet. They may burn your skin. If you have lost feeling in your feet or legs, you may not know this is happening until it is too late. Protect your feet from hot and cold by wearing shoes, such as at the beach or on hot pavement. Schedule a complete foot exam at least once a year or more often if you have foot problems. Report any cuts, sores, or bruises to your health care provider right away. Where to find more information [place] Diabetes Association: diabetes.org Association of Diabetes Care & Education Specialists: diabeteseducator.org Contact a health care provider if: You have a condition that increases your risk of infection, and you have any cuts, sores, or bruises on your feet. You have an injury that is not healing. You have redness on your legs or feet. You feel burning or tingling in your legs or feet. You have pain or cramps in your legs and feet. Your legs or feet are numb. Your feet always feel cold. You have pain around any toenails. Get help right away if: You have a wound, scrape, corn, or callus on your foot and: ? You have signs of infection. ? You have a fever. ? You have a red line going up your leg. This information is not intended to replace advice given to you by your health care provider. Make sure you discuss any questions you have with your health care provider. Document Released: 2001-06-25 Document Updated: 2022-12-30 Document Reviewed: 2022-12-30 Elsevier Patient Education ? 2024 [employer] documented in this encounter Plan of Treatment Upcoming Encounters Date Type Department Care Team (Late st Contact Info) Description 06/18/2025 10:30 AM EST Office Visit [facility] GASTROENTEROLOGY PRACTICE [address] 2nd [place] [address] 06/27/2025 10:00 AM EST Office Visit [facility] SLEEP LAB PRACT[facility] [address], [place] [phone] Demario Silva DO [address] [place] [address] 08/16/2025 10:00 AM EST Office Visit [facility] ENDOCRINOLOGY PRACT[facility] [address], 8th [place] [address] Brigitte Mahoney NP [address] [place] [phone] 09/18/2025 1:30 PM EDT Office Visit [facility] RHEUMATOLOGY PRACTICE [address], 8th [place] [address] Suman Treviño MD [address] [facility] [place] [address] 12/13/2025 1:15 PM EDT Office Visit [facility] OBGYN PRACT[facility] [address], 7th [place] [address] Janice Woodward NP [address] [place] [address] documented as of this encounter Visit Diagnoses Diagnosis Diabetic polyneuropathy associated with type 2 diabetes mellitus Achilles tendinitis of left lower extremity Bilateral calcaneal spurs Pain in both feet documented in this encounter Additional Health Concerns Assessment Noted Time PHQ-9 Depression Total Score: 0 07/24/19 23 3:00 PM EST documented as of this encounter Care Teams Prior Authorization Technician Relationship Specialty Start Date End Date Trevor Rolon DO [address] [facility] [address] [place] [address] PCP - General Lucy Christopher DO [address] [facility] [address] [facility] [address] [facility] [place] [address] Consulting Physician Oncology 10/17/24 documented as of this encounter
--- OUTSIDE RECORDS SUMMARY | 2025-03-28 07:00 | XMS_ITS | Encounter Summary ---
Author Organization [facility] nter Address [address] [place] [address] Care Team Providers Care Oyster Picker Name Role Phone Trevor Rolon DO Primary Care Provider Lucy Christopher DO Unavailable Reason for Visit * Reason Comments Follow-up The pt has a Hx of O SA. The epworth score was 17/24. Excessive Daytime Sleepiness Fatigue Sleep Study The pt recently had a home sleep test. Cirrhosis Restless Legs Diabetes Hypertension B Gonzales--PCP Encounter Details Date Type Department Care Team (Late st Contact Info) Description 03/28/2025 8:00 AM EDT Office Visit [facility] SLEEP LAB PRACTICE [address] [facility] [place] [address] NovemberMarcelina NP [address] [place] [address] LEROY (obstructive sleep apnea) (Primary Dx); Snoring; Excessive daytime sleepiness; Witnessed apneic spells; Gasping for breath; Non-restorative sleep; Persistent disorder of initiating or maintaining sleep; Restless leg syndrome Social History Tobacco Use Types Packs/Day Years [...] week 07/24/2022 How often do you attend [facility] or latter day services? More than 4 times per year 07/24/2022 Do you belong to any clubs o r organizations such as restorationist groups, unions, fraternal or athletic groups, or [...] Sign Reading Time Taken Comments Blood Pressure 116/69 03/28/2025 8:00 AM EDT Pulse 84 03/28/2025 8:00 AM EDT Temperature - - Respiratory Rate - - Oxygen Saturation 100% 03/28/2025 8:00 AM EDT Inhaled Oxygen Concentration - - Weight 79.8 kg (176 lb) 03/28/2025 8:00 AM EDT Height 170.2 cm (5' 7 ) 03/28/2025 8:00 AM EDT Body Mass Index 27.57 03/28/2025 8:00 AM EDT documented in this encounter Progress Notes * Marcelina Hyde NP - 03/28/2025 8:00 AM EDT Subjective Patient ID: Trudy Peña is a 54 y.o. female who presents for Follow- up (The pt has a Hx of LEROY. The epworth score was 17/24.), Excessive Daytime Sleepiness, Fatigue, Sleep Study (The pt recently had a home sleep test.), Cirrhosis, Restless Legs, Diabetes, and Hypertension (Aki Rolon--PCP). Vitals: 03/28/25 0800 BP: 116/69 Pulse: 84 SpO2: 100% Weight: 176 lb (79.8 kg) Height: 5' 7 (1.702 m) PainSc: 0-No pain HPI : Cirrhosis Restless Leg DM HTN LEROY Review of Systems Constitutional: Positive for fatigue. Respiratory: Positive for apnea. Positive for snoring Objective Physical Exam Vitals reviewed. Constitutional: Appearance: Normal appearance. Cardiovascular: Rate and Rhythm: Normal rate. Pulmonary: Effort: Pulmonary effort is normal. No respiratory distress. Neurological: Mental Status: She is alert and oriented to person, place, and time. Psychiatric: Mood and Affect: Mood normal. Behavior: Behavior normal. 1. LEROY (obstructive sleep apnea) 2. Snoring 3. Excessive daytime sleepiness 4. Witnessed apneic spells 5. Gasping for breath 6. Non-restorative sleep 7. Persistent disorder of initiating or maintaining sleep 8. Restless leg syndrome 1. Patient recently had a home sleep study. I have explained the sleep study in detail with the patient. AHI was 6, Lowest sat was 87%, Avg sat was 95%. Will order autopap 5-10 cm for patient. Advised to call if patient is unable to breathe out/tolerate pressure, may need pap titration at that time. 2. Patient was advised to use the PAP machine consistently every night for 7-8 hours. 3. Advised not to drive if sleepy. 4. Advised to lose weight with diet and exercise. 5. Minimize sedatives that may make sleep apnea worse. 6. I have explained the complications of untreated sleep apnea. a) Heart Attack b) Heart failure c) Stroke d) Pulmonary hypertension 7. Bariatric surgery may be an options to lose weight. 8. I have explained treatment options for sleep apnea. a)oral appliances b) weight loss c) c-pap/bi-pap machine 9. The patient understood all recommendations. The medication list for this visit has been reviewed and reconciled. Reviewed by Marcelina Hyde NP (Nurse Practitioner) on 03/28/25 at 0850 and confirmed by Marcelina Hyde NP documented in this encounter Miscellaneous Notes * Patient Education - Fara Jackson RENATA Lea - 03/28/2025 8:35 AM EDT Images from the original note were not included. Patient Education Table of Contents Quality Sleep Information, Adult To view videos and all your education online visit, [email or web address] or scan this QR code with your smartphone. Access to this content will in one year. Quality Sleep Information, Adult Quality sleep is important for your mental and physical health. It also improves your quality of life. Quality sleep means you: Are asleep for most of the time you are in bed. Fall asleep within 30 minutes. Wake up no more than once a night. Are awake for no longer than 20 minutes if you do wake up during the night. Most adults need 7?8 hours of quality sleep each night. How can poor sleep affect me? If you do not get enough quality sleep, you may have: Mood swings. Daytime sleepiness. Decreased alertness, reaction time, and concentration. Sleep disorders, such as insomnia and sleep apnea. Difficulty with: ? Solving problems. ? Coping with stress. ? Paying attention. These issues may affect your performance and productivity at work, school, and home. Lack of sleep may also put you at higher risk for accidents, suicide, and risky behaviors. If you do not get quality sleep, you may also be at higher risk for several health problems, including: Infections. Type 2 diabetes. Heart disease. High blood pressure. Obesity. Worsening of long-term conditions, like arthritis, kidney disease, depression, Parkinson's disease,and epilepsy. What actions can I take to get more quality sleep? Sleep schedule and routine Stick to a sleep schedule. Go to sleep and wake up at about the same time each day. Do not try to sleep less on weekdays and make up for lost sleep on weekends. This does not work. Limit naps during the day to 30 minutes or less. Do not take naps in the late afternoon. Make time to relax before bed. Reading, listening to music, or taking a hot bath promotes quality sleep. Make your bedroom a place that promotes quality sleep. Keep your bedroom dark, quiet, and at a comfortable room temperature. Make sure your bed is comfortable. Avoid using electronic devices that give off bright blue light for 30 minutes before bedtime. Your brain perceives bright blue light as sunlight. This includes television, phones, and computers. If you are lying awake in bed for longer than 20 minutes, get up and do a relaxing activity until you feel sleepy. Lifestyle Try to get at least 30 minutes of exercise on most days. Do not exercise 2?3 hours before going to bed. Do not use any products that contain nicotine or tobacco. These products include cigarettes, chewing tobacco, and vaping devices, such as e-cigarettes. If you need help quitting, ask your health careprovider. Do not drink caffeinated beverages for at least 8 hours before going to bed. Coffee, tea, and some sodas contain caffeine. Do not drink alcohol or eat large meals close to bedtime. Try to get at least 30 minutes of sunlight every day. Morning sunlight is best. Medical concerns Work with your health care provider to treat medical conditions that may affect sleeping, such as: ? Nasal obstruction. ? Snoring. ? Sleep apnea and other sleep disorders. Talk to your health care provider if you think any of your prescription medicines may cause you to have difficulty falling or staying asleep. If you have sleep problems, talk with a sleep automotive service consultant. If you think you have a sleep disorder, talk with your health care provider about getting evaluated by a specialist. Where to find more information Sleep Foundation: sleepfoundation.org [place] Academy of Sleep Medicine: aasm.org Centers for Disease Control and Prevention (CDC): cdc.gov Contact a health care provider if: You have trouble getting to sleep or staying asleep. You often wake up very early in the morning and cannot get back to sleep. You have daytime sleepiness. You have daytime sleep attacks of suddenly falling asleep and sudden muscle weakness (narcolepsy). You have a tingling sensation in your legs with a strong urge to move your legs (restless legs syndrome). You stop breathing briefly during sleep (sleep apnea). You think you have a sleep disorder or are taking a medicine that is affecting your quality of sleep. Summary Most adults need 7?8 hours of quality sleep each night. Getting enough quality sleep is important for your mental and physical health. Make your bedroom a place that promotes quality sleep, and avoid things that may cause you to have poor sleep, such as alcohol, caffeine, smoking, or large meals. Talk to your health care provider if you have trouble falling asleep or staying asleep. This information is not intended to replace advice given to you by your health care provider. Make sure you discuss any questions you have with your health care provider. Document Released: 2018-10-05 Document Updated: 2022-10-21 Document Reviewed: 2022-10-21 Elsevier Patient Education ? 2024 Where Was it Filmed [employer] documented in this encounter Plan of Treatment Upcoming Encounters Date Type Department Care Team (Late st Contact Info) Description 06/18/2025 10:30 AM EST Office Visit [facility] GASTROENTEROLOGY PRACTICE [address] [facility], 2nd [place] [address] 06/27/2025 10:00 AM EST Office Visit [facility] SLEEP LAB PRACTICE [address] [facility] [place] [phone] Demario Silva DO [address] [place] [address] 08/16/2025 10:00 AM EST Office Visit [facility] ENDOCRINOLOGY PRACTICE [address] 8th [place] [address] Brigitte Mahoney NP [address] [place] [address] [place] [address] 09/18/2025 1:30 PM EDT Office Visit [facility] RHEUMATOLOGY PRACTICE [address] [place] [address] Suman Treviño MD [address] [place] [address]. [place] [address] 12/13/2025 1:15 PM EDT Office Visit [facility] [address], 7th [place] [phone] Janice Woodward, CLAU [address] [place] [address] documented as of this encounter Visit Diagnoses Diagnosis LEROY (obstructive sleep apnea)- Primary Obstructive sleep apnea (adult) (pediatric) Snoring Other dyspnea and respiratory abnormality Excessive daytime sleepiness Witnessed apneic spells Gasping for breath Non-restorative sleep Persistent disorder of initiating or maintaining sleep Restless leg syndrome Restless legs syndrome (RLS) documented in this encounter Additional Health Concerns Assessment Noted Time PHQ-9 Depression Total Score: 0 07/24/19 23 3:00 PM EST documented as of this encounter Care Teams Oyster Picker Relationship Specialty Start Date End Date Trevor Rolon DO [address] [facility] [address] [place] [phone] PCP - General Lucy Christopher DO [address] [place] [address] Consulting Physician Oncology 10/17/24 documented as of this encounter
--- OUTSIDE RECORDS SUMMARY | 2025-04-03 07:00 | XMS_ITS | Encounter Summary ---
Author Organization [facility] Address [address] [place] [address] Care Team Providers Care Carpet Weaver Name Role Phone Trevor Rolon DO Primary Care Provider Mc Grant DO Unavailable [phone] El Agarwal DEVELOPER PROGRAMMER Unavailable [phone] Reason for Referral * Consultation (Routine) - Authorized Specialty Diagnoses / Procedures Referred By Truong bella Referred To Contact Family Medicine Diagnoses End-stage liver disease (CMS/HCC) Nj Johns MD [address] [facility] [address] [place] [address] Phone: tel: fax: Referral ID Status Reason Start Date Expiration Date Visits Requested Visits Authorized [id number] Authorized Specialty Services Required 04/03/2025 10/03/2026 1 1 Reason for Visit * Reason Comments Pre-Liver Txp Follow-up * Consultation (Routine) - Closed Specialty Diagnoses / Procedures Referred By Truong bella Referred To Contact Transplant Diagnoses End-stage liver disease (CMS/HCC) Asael Esteves MD [address] [place] [address] Phone: tel: fax: [facility] [address] [place] [address] Phone: tel: fax: Referral ID Status Reason Start Date Expiration Date V isits Requested Visits Authorized [id number] Closed Specialty Services Required 03/21/2025 09/20/2026 1 1 Encounter Details Date Type Department Care Team (Latest Contact Info) Description 04/03/2025 8:00 AM EDT Office Visit [facility] [address] [place] [address] Nj Johns MD [address] [place] [address] End-stage liver disease (CMS/HCC) (Primary Dx); Metabolic syndrome; Other ascites; Hepatic encephalopathy (CMS/HCC); Elevated alkaline phosphatase level Social History Tobacco Use Types Packs/Day Years Used Date Smoking Tobacco: Former Cigarettes 0.1 10.6 2 012 - 02/2022 Passive Smoke Exposure: Past Smokeless Tobacco: Never Alcohol Use Standard Drinks/Week Comments Not Currently 0 (1 standard drink = 0.6 oz pur e alcohol) not drinking since 2017 PHQ-2 Answer Date Recorded Patient Health Questionnaire-2 Score 3 04/03/2025 PHQ-9 Answer Date Recorded Patient Health Questionnaire-9 Score 18 04/03/2025 Comments Unknown Sex and Gender Information Value Date Recorded Sex Assigned at Female 03/11/2021 7:37 PM EDT Legal Sex Female 8:49 PM EDT Gender Identity Female 03/11/2021 7:37 PM EDT Sexual Orientation Not on file documented as of this encounter Last Filed Vital Signs Vital Sign Reading Time Taken Comments Blood Pressure 118/67 04/03/2025 6:54 AM EDT Pulse 87 04/03/2025 6:54 AM EDT Temperature 36.8 C (98.2 F) 04/03/2025 6:54 AM EDT Respiratory Rate 16 04/03/2025 6:54 AM EDT Oxygen Saturation 100% 04/03/2025 6:54 AM EDT Inhaled Oxygen Concentration - - Weight 78 kg (171 lb 15.3 oz) 04/03/2025 6:54 AM EDT Height 170.2 cm (5' 7 ) 04/03/2025 6:54 AM EDT Body Mass Index 26.93 04/03/2025 6:54 AM EDT documented in this encounter Functional Status * Over the past 2 weeks, how often have you been bothered by any of the following problems? Question Answer Date of Assessment Author Little interest or pleasure in doing things Several days 04/03/2025 7:06 AM EDT Romi Jones Feeling down, depressed, or hopeless More than half the days 04/03/2025 7:06 AM EDT Sanford Jones Patient Health Questionnaire-2 Score 3 04/03/2025 7:06 AM EDT Sanford Jones * Question Answer Date of Assessment Author Trouble falling or staying asleep, or sleeping too much Nearly every day 04/03/2025 7:06 AM Sanford Houston Feeling tired or having little energy Nearly every day 04/03/2025 7:06 AM EDT Sanford Jones Poor appetite or overeating Nearly every day 04/03/2025 7:06 AM Sanford Houston Feeling bad about yourself - or that you are a failure or have let yourself or your family down Nearly every day 04/03/2025 7:06 AM Sanford Houston Trouble concentrating on things, such as reading [...] Health Questionnaire-9 Score 18 04/03/2025 7:06 AM EDT Sanford Jones * How difficult have these problems made it for you to do your work, take care of things at home, or get along with other people? Answer Date of Assessment Author Very difficult 04/03/2025 7:06 AM EDT Eloisa Jones documented as of this encounter Miscellaneous Notes * Progress Notes - Nj Johns MD - 04/03/2025 8:00 AM EDT Subjective Patient ID: Trudy Peña is a 54 y.o. female. Initial transplant consultation. Referring Provider: El Agarwal History of Present Illness The patient is a 54-year-old female with decompensated [facility] cirrhosis, presenting for a liver transplant consultation. She was first diagnosed in 2018 while undergoing lap CCY, underwent intra-op liver biopsy which showed cirrhosis. She was previously evaluated by Dr. Khan on February 22, 2024. Notes that she had been diagnose diwht cirrhosis on The decompensation is characterized by ascites, managed with Bumetanide (Bumex) 2mg/day and Spironolactone 50 mg/day. 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 She has continued follow-up care at [facility], with her most recent appointment on March 19, 2025 . During this visit, she was noted to be on Bumetanide 2 mg/day and Spironolactone 50 mg/day due toworsening lower extremity edema and a 15-pound weight gain. The diuretic regimen was adjusted to Bumetanide 2 mg/day and Spironolactone 100 mg/day. Her MELD score has since increased to 16, promptinga referral to [facility] for further evaluation. She also has a hx of Hepatic encephalopathy, grade 2-3. Has had 2 major episodes Presents today with her sister Has gained weight up to 191 lbs 2 weeks ago ,baseline weight 166. Also complains of bilateral lower limb cramps on today's visit. Has continued to have intermittent episodes of hepatic encephalopathy despite being on lactulose and Xifaxan. Also continues to drive. Patient denies any complaints of nausea, vomiting, diarrhea, melena, hematochezia, hematemesis, fever, chills, rigors, jaundice, pruritus. Past medical hx Cirrhosis Type 2 DM CHF Previously HTNsive Diabetic neuropathy Migraines Ascites Surgical hx Lap CCY Family hx Breast cancer: 3 Aunt. Social hx Lives alone. Sister is with her who is going primary caregiver. Alcohol: None Smoking: Quit last week. Drugs/Substances: None The following portions of the chart were reviewed this encounter and updated as appropriate: Review of Systems 14 point ROS negative except for HPI Objective Visit Vitals BP 118/67 Pulse 87 Temp 36.8 ??C (98.2 ??F) Ht 1.702 m (5' 7 ) Wt 78 kg (171 lb 15.3 oz) SpO2 100% BMI 26.93 kg/m?? Physical Exam Constitutional: Appearance: Normal appearance. She is normal weight. HENT: Head: Normocephalic and atraumatic. Nose: Nose normal. Mouth/Throat: Mouth: Mucous membranes are moist. Pharynx: Oropharynx is clear. Eyes: Extraocular Movements: Extraocular movements intact. Conjunctiva/sclera: Conjunctivae normal. Pupils: Pupils are equal, round, and reactive to light. Cardiovascular: Rate and Rhythm: Normal rate and regular rhythm. Pulses: Normal pulses. Heart sounds: Normal heart sounds. No murmur heard. No friction rub. No gallop. Pulmonary: Effort: Pulmonary effort is normal. No respiratory distress. Breath sounds: Normal breath sounds. No wheezing. Abdominal: General: Bowel sounds are normal. There is no distension. Palpations: Abdomen is soft. There is no mass. Tenderness: There is no abdominal tenderness. There is no guarding or rebound. Hernia: No hernia is present. Musculoskeletal: General: Normal range of motion. Cervical back: Normal range of motion. Right lower leg: Edema present. Left lower leg: Edema present. Skin: General: Skin is warm. Coloration: Skin is not jaundiced. Findings: No bruising. Neurological: General: No focal deficit present. Mental Status: She is alert and oriented to person, place, and time. Mental status is at baseline. Cranial Nerves: No cranial nerve deficit. Sensory: No sensory deficit. Motor: No weakness. Psychiatric: Mood and Affect: Mood normal. Behavior: Behavior normal. Judgment: Judgment normal. Current Medications[1] Laboratory values CBC: WBC Count Date/Time Value Ref Range Status 04/03/2025 06:38 AM 9.16 3.70 - 10.30 10*3/uL Final 02/22/2024 07:30 AM 4.20 3.70 - 10.30 10*3/uL Final 12/13/2020 02:13 PM 7.58 3.7 - 10.3 k/uL Final HGB Date/Time Value Ref Range Status 04/03/2025 06:38 AM 13.6 11.2 - 15.7 g/dL Final 02/22/2024 07:30 AM 13.9 11.2 - 15.7 g/dL Final 12/13/2020 02:13 PM 13.5 11.2 - 15.7 g/dL Final HCT Date/Time Value Ref Range Status 04/03/2025 06:38 AM 41.4 34.0 - 45.0 % Final 02/22/2024 07:30 AM 39.9 34.0 - 45.0 % Final 12/13/2020 02:13 PM 40.9 34 - 45 % Final Platelet Count Date/Time Value Ref Range Status 04/03/2025 06:38 AM 87 (L) 155 - 369 10*3/uL Final 02/22/2024 07:30 AM 79 (L) 155 - 369 10*3/uL Final 12/13/2020 02:13 PM 134 (L) 155 - 369 k/uL Final CMP: Sodium, Plasma Date/Time Value Ref Range Status 04/03/2025 06:38 AM 133 (L) 136 - 145 mmol/L Final 02/22/2024 07:30 AM 141 136 - 145 mmol/L Final 12/13/2020 02:13 PM 139 136 - 145 mmol/L Final External Sodium Date/Time Value Ref Range Status 02/26/2025 12:00 AM 133 mmol/L Final 01/25/2024 12:00 AM 136 mmol/L Final Potassium, Plasma Date/Time Value Ref Range Status 04/03/2025 06:38 AM 4.9 3.6 - 4.9 mmol/L Final 02/22/2024 07:30 AM 3.9 3.7 - 4.8 mmol/L Final 12/13/2020 02:13 PM 4.3 3.6 - 4.9 mmol/L Final Chloride, Plasma Date/Time Value Ref Range Status 04/03/2025 06:38 AM 100 97 - 107 mmol/L Final 02/22/2024 07:30 AM 106 97 - 107 mmol/L Final 12/13/2020 02:13 PM 103 97 - 107 mmol/L Final CO2, Plasma Date/Time Value Ref Range Status 04/03/2025 06:38 AM 23 22 - 29 mmol/L Final 02/22/2024 07:30 AM 26 22 - 29 mmol/L Final 12/13/2020 02:13 PM 27 22 - 29 mmol/L Final BUN, Plasma Date/Time Value Ref Range Status 04/03/2025 06:38 AM 19 7 - 21 mg/dL Final 02/22/2024 07:30 AM 12 7 - 21 mg/dL Final 12/13/2020 02:13 PM 8 7 - 21 mg/dL Final Creatinine, Plasma Date/Time Value Ref Range Status 04/03/2025 06:38 AM 0.98 0.60 - 1.10 mg/dL Final 02/22/2024 07:30 AM 0.77 0.60 - 1.10 mg/dL Final 12/13/2020 02:13 PM 0.65 0.60 - 1.10 mg/dL Final External Creatinine Blood Date/Time Value Ref Range Status 02/26/2025 12:00 AM 0.7 mg/dL Final 01/25/2024 12:00 AM 1.0 mg/dL Final Total Calcium, Plasma Date/Time Value Ref Range Status 04/03/2025 06:38 AM 9.5 8.9 - 10.2 mg/dL Final 02/22/2024 07:30 AM 9.2 8.9 - 10.2 mg/dL Final Total Bilirubin, Plasma Date/Time Value Ref Range Status 04/03/2025 06:38 AM 2.0 (H) 0.2 - 1.1 mg/dL Final 02/22/2024 07:30 AM 0.8 0.2 - 1.1 mg/dL Final 12/13/2020 02:13 PM 0.7 0.2 - 1.1 mg/dL Final External Bilirubin Total Date/Time Value Ref Range Status 02/26/2025 12:00 AM 2.5 mg/dL Final 01/25/2024 12:00 AM 2.2 mg/dL Final Alkaline Phosphatase, Plasma Date/Time Value Ref Range Status 04/03/2025 06:38 AM 264 (H) 35 - 104 U/L Final 02/22/2024 07:30 AM 190 (H) 35 - 104 U/L Final 12/13/2020 02:13 PM 131 (H) 35 - 104 U/L Final ALT, Plasma Date/Time Value Ref Range Status 04/03/2025 06:38 AM 54 (H) 10 - 35 U/L Final 02/22/2024 07:30 AM 37 (H) 10 - 35 U/L Final 12/13/2020 02:13 PM 26 8 - 33 U/L Final AST, Plasma Date/Time Value Ref Range Status 04/03/2025 06:38 AM 74 (H) 10 - 35 U/L Final 02/22/2024 07:30 AM 62 (H) 10 - 35 U/L Final 12/13/2020 02:13 PM 52 (H) 11 - 32 U/L Final Glucose, Plasma Date/Time Value Ref Range Status 04/03/2025 06:38 AM 164 (H) 74 - 99 mg/dL Final 02/22/2024 07:30 AM 90 74 - 99 mg/dL Final 12/13/2020 02:13 PM 78 74 - 99 mg/dL Final Imaging/Radiology No images are attached to the encounter or orders placed in the encounter. Assessment/Plan Assessment & Plan End-stage liver disease (CMS/HCC) Metabolic syndrome Other ascites Hepatic encephalopathy (CMS/HCC) Elevated alkaline phosphatase level 1. Decompensated cirrhosis - MASH? MELD 3.0: 16 at 04/03/2025 6:38 AM MELD-Na: 16 at 04/03/2025 6:38 AM Calculated from: Serum Creatinine: 0.98 mg/dL (Using min of 1 mg/dL) at 04/03/2025 6:38 AM Serum Sodium: 133 mmol/L at 04/03/2025 6:38 AM Total Bilirubin: 2 mg/dL at 04/03/2025 6:38 AM Serum Albumin: 3.4 g/dL at 04/03/2025 6:38 AM INR(ratio): 1.3 at 04/03/2025 6:38 AM Age at listing (hypothetical): 54 years Sex: Female at 04/03/2025 6:38 AM Start standard evaluation Alk phos noted to be 264 with transaminases AST 74, ALT 54. On review of her chart noted to have mildly positive M2 antibody, will repeat serological workup for PBC and AIH. Complications of liver disease include: Ascites, hepatic encephalopathy History of: Type 2 diabetes mellitus, hyperlipidemia, CHF Chemical dependency: None presently Counseled on the nature, symptoms & signs, and complications of cirrhosis. Advised to avoid NSAIDS, can take acetaminophen but not to exceed 2000 mg a day. # Ascites / pedal edema: Never had a paracentesis. Diuretics - currently on Bumex 2 mg/day in AM, spironolactone 200 mg/day Continues to have bilateral lower limb edema 2+ along with 5-7 lb fluid gain. Number increase Bumex dose to Bumex 2 mg in a.m. and 1 mg in p.m.. Repeat labs in 1 week. Suggest strict 2 gm /day salt diet check for BUN /creatinine and electrolytes with labs # Hepatic Encephalopathy: Yes, on lactulose goal BM 2-3/day On xifaxan 550 mg BID Add zinc 220 mg BID persistent symptoms despite being on lactulose and Xifaxan. Has passed out 2 times [address]. Counseled not to drive # Esophageal varices screening- EGD 02/202512/15/2024: no EV noted, non bleeding GAVE s/p APC. Repeat in 1 year Educated on S/S of GI bleed and advised to go to ER if any occurs. # HCC surveillance: Ultrasound liver Doppler 04/28/2024: Cirrhotic liver morphology, no suspicious liver lesions, patent hepatic vasculature. Repeat imaging with CT liver next visit AFP - WNL Continue Q6 monthly surveillance protocol. 2. Lower limb cramps Recommend pickle juice. Also sending in Baclofen 10 mg at bedtime. 3. Nutritional counseling-- Counseled on the importance of increasing protein intake, advised to get 1.2-1.5 gram/kg a day. Advsied to take late night snack. Health Maintenance: Check immunization for hepatitis A and B Colonoscopy 2022: Normal colonoscopy. Repeat in 5 years Mammogram :scheduled Apr 2025. PAP: December 2024 done - RTC with eval. A total of 80 minutes was spent during this visit for care coordination, including review of medical records and previous notes, obtaining history and physical exam, ordering tests, changes in medications, counseling patient about cirrhosis, natural history,prognosis, potential complications of cirrhosis and management of complications of cirrhosis, indications/contraindications for liver transplant, benefits/risks of transplant including process of transplant evaluation, concept of MELD score, instructions for management, consult with peers and clinical documentation in the patient's clinic note [1] Current Outpatient Medications: BD Pen Needle Candie Ultrafine 32G X 4 MM misc, 2 times a day., Disp: , Rfl: Blood Glucose Monitoring Suppl (FreeStyle Lite) w/Device kit, use DIRECTED TO check BLOOD GLUCOSE THREE TIMES DAILY, Disp: , Rfl: bumetanide (Bumex) 1 MG tablet, Take 2 tablets (2 mg) by mouth 1 (one) time each day in the morning., Disp: , Rfl: busPIRone (Buspar) 7.5 MG tablet, Take 1 tablet by mouth 2 times a day., Disp: , Rfl: Continuous Glucose Sensor (Dexcom G7 Sensor) misc, USE TO MONITOR BLOOD SUGAR DIRECTED. CHANGE SENSOR EVERY 10 DAYS., Disp: , Rfl: cyclobenzaprine (Flexeril) 10 MG tablet, Take 1 tablet by mouth 3 times a day as needed., Disp: , Rfl: desvenlafaxine (Pristiq) 100 MG 24 hr tablet, Take 50 mg by mouth 1 time each day., Disp: , Rfl: diclofenac (Voltaren) 1 % topical gel, apply 2 grams TO affected area FOUR TIMES DAILY, Disp: , Rfl: Easy Touch Lancets 30G misc, 3 times a day. as directed, Disp: , Rfl: Embecta Insulin Syr Ultrafine 31G X 15/64 1 ML misc, USE TO INJECT INSULIN EVERY MORNING DIRECTED, Disp: , Rfl: ergocalciferol (Vitamin D-2) 1.25 MG (73442 UT) capsule, Take 1 capsule by mouth 1 time per week. Take only on Tuesdays, Disp: , Rfl: FeroSul 325 (65 Fe) MG tablet, Take 1 tablet (325 mg) by mouth 1 (one) time each day., Disp: , Rfl: hydrOXYzine pamoate (Vistaril) 25 MG capsule, Take 1 capsule by mouth 3 times a day as needed., Disp: , Rfl: insulin glargine (Lantus SoloStar) 100 UNIT/ML injection pen, Inject 20 Units under the skin every morning., Disp: , Rfl: Jardiance 25 MG, Take 1 tablet (25 mg) by mouth 1 (one) time each day., Disp: , Rfl: lactulose (Chronulac) 10 GM/15ML oral solution, Take 15 mL by mouth 2 times a day., Disp: , Rfl: lisinopril 2.5 MG tablet, Take 1 tablet by mouth daily., Disp: , Rfl: metoprolol succinate XL (Toprol-XL) 50 MG 24 hr tablet, Take 1 tablet by mouth daily., Disp: , Rfl: NovoLOG FLEXPEN 100 UNIT/ML injection pen, Inject 5 Units under the skin 3 times a day as needed., Disp: , Rfl: ondansetron (Zofran) 4 MG tablet, Take 1 tablet by mouth every 8 hours as needed., Disp: , Rfl: OneTouch Verio test strip, Use 3 per day. Code E11.65, Disp: , Rfl: oxyCODONE (Roxicodone) 5 MG immediate release tablet, Take 1 tablet by mouth 3 times a day as needed., Disp: , Rfl: Ozempic, 1 MG/DOSE, 4 MG/3ML solution pen-injector, Inject 1 mg under the skin 1 time per week., Disp: , Rfl: pantoprazole (Protonix) 40 MG EC tablet, Take 1 tablet by mouth daily., Disp: , Rfl: potassium chloride CR (Klor-Con M20) 20 MEQ ER tablet, Take 1 tablet (20 mEq) by mouth 2 (two) times a day., Disp: , Rfl: pregabalin (Lyrica) 25 MG capsule, Take 1 capsule by mouth daily., Disp: , Rfl: promethazine (Phenergan) 25 MG tablet, TAKE 1 Tablet BY MOUTH THREE TIMES A DAY NEEDED FOR NAUSEA AND VOMITING, Disp: , Rfl: rifAXIMin (Xifaxan) 550 MG tablet, Take 1 tablet (550 mg) by mouth 2 (two) times a day., Disp: , Rfl: Rimegepant Sulfate (Nurtec) 75 MG tablet dispersible, Dissolve 1 tablet on the tongue daily as needed., Disp: , Rfl: rOPINIRole (Requip) 1 MG tablet, Take 1 tablet (1 mg) by mouth 4 (four) times a day., Disp: , Rfl: simvastatin (Zocor) 20 MG tablet, Take 1 tablet (20 mg) by mouth 1 (one) time each day., Disp: , Rfl: spironolactone (Aldactone) 100 MG tablet, Take 2 tablets by mouth daily., Disp: , Rfl: valACYclovir (Valtrex) 500 MG tablet, Take 1 tablet by mouth every morning., Disp: , Rfl: hydrOXYzine HCl (Atarax) 25 MG tablet, Take 1 tablet by mouth daily as needed. (Patient not taking:Reported on 04/03/2025), Disp: , Rfl: lansoprazole (Prevacid) [address] capsule, Take 1 capsule (30 mg) by mouth 1 (one) time each day. (Patient not taking: Reported on 04/03/2025), Disp: , Rfl: metoprolol succinate XL (Toprol-XL) 50 MG 24 hr tablet, Take 2 tablets by mouth daily. (Patient nottaking: Reported on 04/03/2025), Disp: , Rfl: zinc sulfate (Zincate) 220 (50 Zn) MG capsule, Take 1 capsule by mouth 2 times a day., Disp: 240 capsule, Rfl: 2 documented in this encounter Plan of Treatment Upcoming Encounters Date Type Department Care Team (Late st Contact Info) Description 05/25/2025 11:30 AM EST Appointment [facility] [address] [place] [address] 05/25/2025 2:00 PM EST Appointment [facility] [address] [place] [address] 05/25/2025 3:30 PM EST Appointment Cardiac Imaging [address] [place] [address] 05/31/2025 4:30 PM EST Appointment [facility] [address] [place] [address] 06/12/2025 2:30 PM EST Office Visit [facility] [place] [address] [facility], [address] [place] [address] Shahla Juana Coelho, DEVELOPER PROGRAMMER [address] [place] [address] 06/20/2025 10:30 AM EST Procedure Visit [facility] [address] [place] [address] Claire Davidson MD [address] [place] [address] 06/21/2025 2:00 PM EST Office Visit [facility] [address], [address] [place] [address] Claire Davidson MD [address] [place] [address] 07/17/2025 8:45 AM EST Clinical Support [facility] [address] [place] [address] 07/17/2025 10:30 AM EST Office Visit [facility] [address] [place] [address] Nj Johns MD [address] [place] [address] Scheduled Referrals Name Type Priority Associated Diagnoses Order Schedule Ambulatory referral to [facility] Practice Outpatient Referral Routine End-stage liver disease (CMS/HCC) 1 Occurrences starting 04/03/2025 until 10/05/2026 documented as of this encounter Results * Skpdf-3-Byiyaoioile Enzyme Conc and Phenotype (SO) (04/03/2025 10:11 AM EDT) ALPHA 1 ANTITRYPSIN 131 90 - 200 mg/dL 04/05/2025 10:42 PM EDT [facility] ([facility]) A1A Phenotype M1Z 04/05/2025 10:42 PM EDT [facility]) Blood Venous blood specimen / Unknown Venipuncture / Unknown 04/03/2025 10:11 AM EDT 04/03/2025 10:41 AM EDT Narrative [facility] [employer] ([facility]) - 04/05/2025 10:42 PM EDT To convert to umol/L, multiply mg/dL by 0.185 Clinical Interpretation: 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 The M allele protein product is a normal variant. The Z allele protein product variant is a deficiency variant (approximately 15 percent of normal serum concentrations). Smokers with this phenotype have an increased rate of loss of lung elasticity but rarely develop clinical disease. Caution in interpretation is advised if the patient has been transfused within the previous 21 days. Performed By: [facility] [address] [place] [address] Spindle Plumber: Kiel Mayfield MD, PhD CLIA Number: [id number] Nj Johns MD LAB BLOOD ORDERABLES Final Res ult [facility]) [address] [place] [address] * (ABNORMAL) Anti-smooth muscle antibody, IgG (04/03/2025 10:11 AM EDT) Smooth Muscle Ab, IgG Titer 1:20(H) <1:20 04/05/2025 8:18 PM EDT [facility] [employer]) Blood Venous blood specimen / Unknown Venipuncture / Unknown 04/03/2025 10:11 AM EDT 04/03/2025 10:41 AM EDT Narrative [facility] [employer]) - 04/05/2025 8:18 PM EDT INTERPRETIVE INFORMATION: Smooth Muscle Ab, IgG Titer Less than 1:20 ........ Negative - No antibody detected. 1:20 - 1:80 .......... Weak Positive - Suggest repeat in two to three weeks with fresh specimen. 1:160 or greater ...... Positive - Suggestive of autoimmune hepatitis or chronic active hepatitis. Performed By: [facility] [address] [place] [address] Spindle Plumber: Kiel Mayfield MD, PhD CLIA Number: [id number] Nj Johns MD LAB BLOOD ORDERABLES Final Res ult [facility] ([employer]) [address] [place] [address] * (ABNORMAL) IG Profile (04/03/2025 10:11 AM EDT) IGA 838(H) 75 - 400 mg/dL 04/03/2025 11:38 AM EDT [facility] IGG 1,747(H) 720 - 1,589 mg/dL 04/03/2025 11:38 AM EDT [facility] IGM 197 35 - 225 mg/dL 04/03/2025 11:38 AM EDT [facility] Blood Venous blood specimen / Unknown Venipuncture / Unknown 04/03/2025 10:11 AM EDT 04/03/2025 10:41 AM EDT Nj Johns MD LAB BLOOD ORDERABLES Final Res ult [facility] [address] [place] [address] * (ABNORMAL) Mitochondrial M2 Antibody, IgG (CRISTAL) (04/03/2025 10:11 AM EDT) MITOCHONDRIA M2 AB IGG 29.3(H) 0.0 - 24.9 Units 04/05/2025 11:23 AM EDT [facility] ([facility]) Serum Venous blood specimen / Unknown 04/03/2025 10:11 AM EDT 04/03/2025 10:41 AM EDT Narrative [facility]) - 04/05/2025 11:23 AM EDT REFERENCE INTERVAL: Mitochondrial (M2) Antibody, IgG 20.0 Units or less ......... Negative 20.1 - 24.9 Units........... Equivocal 25.0 Units or greater....... Positive Anti-mitochondrial antibodies (AMA) are thought to be present in 90-95% of patients with primary biliary cholangitis (PBC). However, the frequency of detected antibodies may be cohort or assay dependent, as lower sensitivities have been reported. Not all PBC patients are positive for AMA; some patients may be positive for SP100 and/or GP210 antibodies. A negative result does not rule out PBC. Performed By: [facility] [address] [place] [address] Spindle Plumber: Kiel Mayfield MD, PhD CLIA Number: [id number] us Nj Johns MD LAB BLOOD ORDERABLES Final Res ult [facility] [address] [place] [address] documented in this encounter Visit Diagnoses Diagnosis End-stage liver disease (CMS/HCC)- Primary Other sequelae of chronic liver disease Metabolic syndrome Dysmetabolic Syndrome X Other ascites Hepatic encephalopathy (CMS/HCC) Hepatic encephalopathy Elevated alkaline phosphatase level documented in this encounter Additional Health Concerns Assessment Noted Time PHQ-9 Depression Total Score: 18 025 7:06 AM EDT A fall risk assessment has been complete d for the patient 04/03/2025 7:05 AM EDT A Body Mass Index follow-up plan has been documented for the patient 04/13/2025 11:02 AM EDT documented as of this encounter Care Teams Carpet Weaver Relationship Specialty Start Date End Date Trevor Rolon DO [address] [facility] [address] [place] [address] PCP - General 11/22/20 Mc Grant DO [address] [facility] [address] [place] [address] Referring Physician Gastroenterology 02/21/24 El Agarwal APRN [address] [place] [address] Referring Physician Gastroenterology 03/21/25 documented as of this encounter
--- OUTSIDE RECORDS SUMMARY | 2025-04-03 07:40 | XMS_ITS | Encounter Summary ---
Author Organization [facility] Address [address] [place] [address] Care Team Providers Care Powerhouse Electrician Name Role Phone Trevor Rolon DO Primary Care Provider [phone] Mc Grant DO Unavailable [phone] El Agarwal WELL POINT PUMPING SUPERVISOR Unavailable [phone] Encounter Details Date Type Department Care Team (Late st Contact Info) Description 04/03/2025 8:40 AM EDT Office Visit [facility] [address] [address] Swapnil Madrigal MD [address] [address] Surgeon, Transplant Liver End-stage liver disease (CMS/HCC) (Primary Dx) Social History Tobacco Use Types [...] on file documented as of this encounter Functional Status * Over the [...] energy Nearly every day 04/03/2025 7:06 AM EDSanford Wagner Poor appetite or overeating Nearly every day [...] encounter Miscellaneous Notes * Progress Notes - Swapnil Madrigal MD - 04/03/2025 8:40 AM EDT Images from the original note were not included. Patient Name: Trudy Peña Date of : 1970 Referring: El Agarwal Coordinator: Madyson Sarabia Chief Complaint: Liver cirrhosis HISTORY OF PRESENT ILLNESS: The patient is a 54 y.o.-year-old female presenting to evaluate candidacy as a liver transplant recipient, with liver disease in the setting of [facility]. The patient was first diagnosed of liver disease on 2017 during a lap araceli. Bx showed cirrhosis. Ascites: Yes, LVP: No SBP: No EV:No HE: Yes HCC: No Previous abdominal surgeries: lap araceli Functional status: ok Substance abuse:no The patient is accompanied by family. Sensitizing Events: [] Blood Transfusions [] Pregnancies [] Previous Transplants Past Medical History[1] Surgical History[2] Family History[3] SOCIAL HISTORY: Tobacco: Tobacco Use: Medium Risk (03/28/2025) Received from [facility] Patient History Passive Exposure: Past Smokeless Tobacco Use: Never Smoking Tobacco Use: Former Alcohol: Alcohol Use: Not At Risk (07/23/2022) Received from [facility] AUDIT-C Q1: How often do you have a drink containing alcohol?: Never Q2: How many drinks containing alcohol do you have on a typical day when you are drinking?: Patientdoes not drink Q3: How often do you have six or more drinks on one occasion?: Never Illicit drug use: Social History Substance and Sexual Activity Drug Use Not on file Living: alone Primary Caregiver: sister Review of Systems REVIEW OF SYSTEMS: A comprehensive review of systems was negative except for items checked below: [] Fever [] Weight gain [] Arthralgias [] Lymphadenopathy [] Weight loss [] Lumbago [] Headache [] Dysphagia [] Poor circulation [] Visual disturbances [] Dyspepsia [] Swelling in legs or feet [] Eye Pain or Redness [] Nausea or vomiting [] Bruising [] Hearing Loss [] Abdominal pain [] Chills [] Dizziness [] Diarrhea [] Night sweats [] Sinus Problems [] Constipation [] Rashes [] Nose Bleeds [] Hematochezia [] Moles [] Bleeding gums [] Anorexia [] Itching [] Mouth sores [] Polydipsia [] Headaches [] Hoarseness [] Dysuria [] Slurred speech [] Breast lump [] Urinary Hesitation [] Personality changes [] Abnormal nipple discharge [] Incomplete voiding [] Depression [] Persistent cough [] Polyuria [] Memory disturbances [] Coughing up blood [] Enuresis [x] Fatigue [] Shortness of breath [] Polyuria [] Dizziness or loss of balance [] Wheezing [] Tremors [] Weakness [] Chest pain or pressure [] Myalgias [] Seizures [] Palpitations [] Numbness or tingling [] Dyspnea on exertion [] Claudication [] Insomnia [] Syncope [] NONE Physical Exam Visit Vitals LMP (LMP Unknown) OB Status Unknown Smoking Status Former PHYSICAL EXAM: GENERAL: NAD, conversant EYES: anicteric sclerae, moist conjunctivae; no lid-lag; PERRLA HENT: Atraumatic; oropharynx clear with moist mucous membranes and no mucosal ulcerations; normal hard and soft palate NECK: Trachea midline; FROM, supple, no thyromegaly or lymphadenopathy LUNGS: CTA, with normal respiratory effort and no intercostal retractions CV: RRR, no MRGs ABDOMEN: Soft, non-tender; no masses or HSM EXTREMITIES: bilateral lower extremity edema or extremity lymphadenopathy Skin: Normal temperature, turgor and texture; no rash, ulcers or subcutaneous nodules PSYCH: Appropriate affect NEURO: Appropriate affect, alert and oriented to person, place and time PERTINENT LABS: MELD 3.0: 20 at 04/11/2025 12:00 AM MELD-Na: 21 at 04/11/2025 12:00 AM Calculated from: Serum Creatinine: 0.9 mg/dL (Using min of 1 mg/dL) at 04/11/2025 12:00 AM Serum Sodium: 128 mEq/L at 04/11/2025 12:00 AM Total Bilirubin: 3.4 mg/dL at 04/11/2025 12:00 AM Serum Albumin: 3 g/dL at 04/11/2025 12:00 AM INR(ratio): 1.2 at 04/11/2025 12:00 AM Age at listing (hypothetical): 54 years Sex: Female at 04/11/2025 12:00 AM ASSESSMENT AND PLAN: 54 yo F with 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 Proceed with eval. We discussed donor transplantation, the waiting list and how candidates are stratified on the list, the liver transplant operation, and recovery from a liver transplant, the risks of immunosuppression, the need for lifelong immunosuppression, and the risks of donor-derived infection or malignancy. We also discussed surgical complications of the operation as well. We discussed predicted mortality after transplantation compared to those who do not achieve transplantation. The patient wasable to ask several questions about the process and these were answered. We will discuss your patient's potential liver transplant candidacy at our next Multidisciplinary Liver Transplant Evaluation Meeting. Thank you for your referral to our Transplant Center. Please feel free to contact me at , if you have any questions regarding my consultation with your patient today. Sincerely, Swapnil Hardy M.D. Abdominal Transplant Surgery [1] Past Medical History: Diagnosis Date Anemia [...] APPENDECTOMY BACK SURGERY N/A 1994 BACK SURGERY 2010 BREAST SURGERY N/A Breast Surgery Reduction Procedure Bilateral from [facility] EXPLORATORY LAPAROTOMY GALLBLADDER SURGERY 2018 GANGLION CYST EXCISION, WRIST Left INCISION AND DRAINAGE, ABCESS 2010 from back LIVER BIOPSY OTHER SURGICAL HISTORY N/A Exploratory Laparotomy from [facility] OVARIAN CYST DRAINAGE N/A Aspiration Of Ovarian Cyst from [facility] TOTAL ABDOMINAL HYSTERECTOMY N/A 2011 Hysterectomy from [facility] [3] Family History Problem Relation Name Age of Onset Cancer Mother Cataracts Mother Hypertension Mother Non-Hodgkin's lymphoma Mother Cataracts Father Conversions - Other Father Back problem Cardiac disorder Father Hypertension Father Heart attack Father Diabetes Sister Hypertension Sister Cancer Brother Diabetes Brother Hypertension Brother Diabetes Maternal Grandmother Stroke Maternal Grandfather Cardiac disorder Paternal Grandmother Stroke Paternal Grandmother Hypertension Paternal Grandmother Heart attack Paternal Grandmother Hypertension Paternal Grandfather documented in this encounter Plan of Treatment Upcoming Encounters Date Type Department Care Team ([facility] st Contact Info) Description 05/25/2025 11:30 AM EST Appointment [facility] Radiology [address] [place] [address] 05/25/2025 2:00 PM EST Appointment [facility] Pulmonary Function Testing [address] [place] [address] 05/25/2025 3:30 PM EST Appointment Cardiac Imaging [address] [place] [address] 05/31/2025 4:30 PM EST Appointment [facility] [address] [place] [address] 06/12/2025 2:30 PM EST Office Visit [facility] [address] [facility], [address] [place] [address] Juana Gale APRN [address] [place] [address] 06/20/2025 10:30 AM EST Procedure Visit [place] [facility] [address] [place] [address] Claire Davidson MD [address] [facility] [address] [place] [address] 06/21/2025 2:00 PM EST Office Visit [facility] [address] [facility], [address] [place] [address] Claire Davidson MD [address] [place] [address] 07/17/2025 8:45 AM EST Clinical Support [facility] [address] [place] [address] 07/17/2025 10:30 AM EST Office Visit [facility] [address] [place] [phone] Nj Johns MD [address] [place] [address] documented as of this encounter Visit Diagnoses Diagnosis End-stage liver disease (CMS/HCC)- Primary Other sequelae of chronic liver disease documented in this encounter Additional Health Concerns Assessment Noted Time PHQ-9 Depression Total Score: 18 025 7:06 AM EDT A fall risk assessment has been complete d for the patient 04/03/2025 7:05 AM EDT A Body Mass Index follow-up plan has been documented for the patient 04/13/2025 11:02 AM EDT documented as of this encounter Care Teams Powerhouse Electrician Relationship Specialty Start Date End Date Trevor Rolon DO [address] [facility] [address] [place] [address] PCP - General 11/22/20 Mc Grant DO [address] [facility] [address] [place] [address] Referring Physician Gastroenterology 02/21/24 El Agarwal APRN [address] [place] [address] Referring Physician Gastroenterology 03/21/25 documented as of this encounter
--- OUTSIDE RECORDS SUMMARY | 2025-05-14 13:04 | XMS_ITS | Encounter Summary ---
Author Organization [facility] Address [address] [place] [address] Care Team Providers Care Cost Analyst Name Role Phone Trevor Rolon DO Primary Care Provider [phone] Mc Grant DO Unavailable [phone] El Agarwal TRAINING INSTRUCTOR Unavailable [phone] Reason for Referral * Imaging (Routine) - Closed Specialty Diagnoses / Procedures Referred By Truong bella Referred To Contact Radiology Diagnoses Lumbosacral radiculopathy Procedures MR Cervical Spine wo IV Contrast Clarie Davidson MD [address] [place] [address] Phone: tel: fax: Referral ID Status Reason Start Date Expiration Date Visits Re quested Visits Authorized [id number] Closed 03/08/2025 09/07/2026 1 1 Reason for Visit * Imaging (Routine) - Closed Specialty Diagnoses / Procedures Referred By Truong bella Referred To Contact Radiology Diagnoses Lumbosacral radiculopathy Procedures MR Cervical Spine wo IV Contrast Claire Davidson MD [address] [place] [address] Phone: tel: fax: Referral ID Status Reason Start Date Expiration Date Visits Re quested Visits Authorized [id number] Closed 03/08/2025 09/07/2026 1 1 Encounter Details Date Type Department Care Team (Latest Contact Info) Description 05/14/2025 1:04 PM EST - 05/14/2025 11:59 PM EST Hospital Encounter [facility] MRI [address] [place] [address] Lumbosacral radiculopathy Discharge Disposition: Home or Self Care Social [...] Score 0 05/18/2025 10:47 AM Adriane Pritchard documented as of this encounter Medications at Time of Discharge baclofen (Lioresal) 10 MG tablet Take 1 tablet by mouth nightly. 30 tablet 04/03/2025 bumetanide (Bumex) 1 MG tablet Take 2 tablets by mouth 2 times a day. 08/18/2022 busPIRone (Buspar) 7.5 MG tablet Take 1 tablet by mouth 2 times a day. 09/19/2024 cyclobenzaprine (Flexeril) 10 MG tablet Take 1 tablet by mouth 3 times a day as needed for muscle spasms. 03/27/2025 desvenlafaxine (Pristiq) 100 MG 24 hr tablet Take 50 mg by mouth daily. diclofenac (Voltaren) 1 % topical gel Place 2 g on the skin 4 times a day as needed (joint pain). 03/24/2022 ergocalciferol (Vitamin D-2) 1.25 MG (28141 UT) capsule Take 1 capsule by mouth 1 time per week. Take on Tuesdays. 04/09/2020 FeroSul 325 (65 Fe) MG tablet Take 1 tablet by mouth nightly. 04/27/2023 hydrOXYzine pamoate (Vistaril) 25 MG capsule Take 1 capsule by mouth 3 times a day as needed for itching. 09/19/2024 insulin glargine (Lantus SoloStar) 100 UNIT/ML injection pen Inject 20 Units under the skin every morning. 04/11/2020 Jardiance 25 MG Take 1 tablet by mouth daily. 05/13/2023 lactulose (Chronulac) 10 GM/15ML oral solution Take 15 mL by mouth 2 times a day. 03/20/2025 lansoprazole (Prevacid) [address] capsule Take 1 capsule by mouth daily. 08/18/2022 lisinopril 2.5 MG tablet Take 1 tablet by mouth daily. 08/08/2024 metoprolol succinate XL (Toprol-XL) 50 MG 24 hr tablet Take 1 tablet by mouth daily. 02/22/2025 NovoLOG FLEXPEN 100 UNIT/ML injection pen Inject 5 Units under the skin 3 times a day as needed for high blood sugar (for BG > 150). 09/01/2024 oxyCODONE (Roxicodone) 5 MG immediate release tablet Take 1.5 tablets by mouth 3 times a day as needed for severe pain. 02/12/2025 Ozempic, 1 MG/DOSE, 4 MG/3ML solution pen-injector Inject 1 mg under the skin 1 time per week. 09/19/2024 potassium chloride CR (Klor-Con M20) 20 MEQ ER tablet Take 1 tablet by mouth 2 times a day. 08/04/2022 pregabalin (Lyrica) 25 MG capsule Take 1 capsule by mouth daily. 02/23/2025 promethazine (Phenergan) 25 MG tablet Take 1 tablet by mouth 3 times a day as needed for nausea or vomiting (if not helped by ondansetron). 09/19/2024 rifAXIMin (Xifaxan) 550 MG tablet Take 1 tablet by mouth 2 times a day. 09/13/2020 Rimegepant Sulfate (Nurtec) 75 MG tablet dispersible Dissolve 1 tablet on the tongue daily as needed (migraine headache). 12/09/2022 rOPINIRole (Requip) 1 MG tablet Take 1 tablet by mouth 4 times a day. 07/20/2022 simvastatin (Zocor) 20 MG tablet Take 1 tablet by mouth nightly. 08/18/2022 spironolactone (Aldactone) 100 MG tablet Take 1.5 tablets by mouth daily. 09/08/2024 valACYclovir (Valtrex) 500 MG tablet Take 1 tablet by mouth every morning. BD Pen Needle Candie Ultrafine 32G X 4 MM misc 2 times a day. 12/26/202405/18 5 Blood Glucose Monitoring Suppl (FreeStyle Lite) w/Device kit use DIRECTED TO check BLOOD GLUCOSE THREE TIMES DAILY 01/24/2025 5 Continuous Glucose Sensor ([employer] G7 Sensor) misc USE TO MONITOR BLOOD SUGAR DIRECTED. CHANGE SENSOR EVERY 10 DAYS. 02/22/2025 5 Easy Touch Lancets 30G misc 3 times a day. as directed 02/22/2025 5 Embecta Insulin Syr Ultrafine 31G X 15/64 1 ML misc USE TO INJECT INSULIN EVERY MORNING DIRECTED 02/27/2025 5 hydrOXYzine HCl (Atarax) 25 MG tablet Take 1 tablet by mouth daily as needed. 08/18/2022 5 metoprolol succinate XL (Toprol-XL) 50 MG 24 hr tablet Take 2 tablets by mouth daily. 08/18/2022 ondansetron (Zofran) 4 MG tablet Take 1 tablet by mouth every 8 hours as needed. 10/24/2023 5 OneTouch Verio test strip Use 3 per day. Code E11.65 10/19/2024 5 pantoprazole (Protonix) 40 MG EC tablet Take 1 tablet by mouth daily. 03/19/2025 5 zinc sulfate (Zincate) 220 (50 Zn) MG capsuleIndication s:End-stage liver disease (CMS/HCC) Take 1 capsule by mouth 2 times a day. 240 capsule 2 04/03/2025 5 documented as of this encounter Plan of Treatment Upcoming Encounters Date Type Department Care Team (Late st Contact Info) Description 05/25/2025 11:30 AM EST Appointment [facility] [address] [place] [phone] 05/25/2025 2:00 PM EST Appointment [facility] [address] [place] [phone] 05/25/2025 3:30 PM EST Appointment Cardiac Imaging [address] [place] [phone] 05/31/2025 4:30 PM EST Appointment [facility] [address] [facility] [address] [place] [phone] 06/12/2025 2:30 PM EST Office Visit [facility] [place] [address] [facility], [address] [place] [phone] Juana Gale APRN [address] [place] [address] 06/20/2025 10:30 AM EST Procedure Visit [place] [facility] [address] [place] [address] Claire Davidson MD [address] [place] [address] 06/21/2025 2:00 PM EST Office Visit [facility] [address] [facility], [address] [place] [phone] Claire Davidson MD [address] [place] [address] 07/17/2025 8:45 AM EST Clinical Support [facility] [place] [address] [place] [address] 07/17/2025 10:30 AM EST Office Visit [facility] [place] [address] [place] [address] Nj Johns MD [address] [place] [address] documented as of this encounter Procedures Procedure Name Priority Date/Time Associated Diagnosis Comments MR CERVICAL SPINE WO IV CONTRAST Routine 05/14/2025 1:38 PM EST Lumbosacral radiculopathy documented in this encounter Results * MR Cervical Spine [...] inferior subligamentous disc extrusion as on sagittal 02/10without secondary significant cord compression Other Findings: None. [...] by Leo Henriquez on 05/14/2025 3:06 PM us Claire Davidson MD IMG MRI PROCEDURES Final Result documented in this encounter Visit Diagnoses Diagnosis Lumbosacral radiculopathy Thoracic or lumbosacral neuritis or [...] documented as of this encounter Care Teams Cost Analyst Relationship Specialty Start Date End Date Trevor Rolon DO [address] [facility] [address] [place] [address] PCP - General 11/22/20 Mc Grant DO [address] [facility] [address] [place] [address] Referring Physician Gastroenterology 02/21/24 El Agarwal APRN [address] [place] [address] Referring Physician Gastroenterology 03/21/25 documented as of this encounter
--- OUTSIDE RECORDS SUMMARY | 2025-05-18 09:30 | XMS_ITS | Encounter Summary ---
Author Organization [facility] Address [address] [place] [address] Care Team Providers Care Poured Wall Foreman Name Role Phone Trevor Rolon DO Primary Care Provider [phone] Mc Grant DO Unavailable [phone] El Agarwal VALET PARKER Unavailable [phone] Reason for Visit * Consultation (Routine) - Closed Specialty Diagnoses / Procedures Referred By Truong bella Referred To Contact Transplant Diagnoses End-stage liver disease (CMS/HCC) Kaela Khan MD [address] [facility] [address] [place] [address] Phone: tel: fax: [facility] [address] [facility] [address] [place] [address] Phone: tel: fax: Referral ID Status Reason Start Date Expiration Date V isits Requested Visits Authorized [id number] Closed Specialty Services Required 04/09/2025 10/09/2026 1 1 Encounter Details Date Type Department Care Team (Late st Contact Info) Description 05/18/2025 9:30 AM EST Clinical Support [facility] [address] [facility] [address] [place] [address] CH - CLINICAL NUTRITION [address] [place] [address] Social History Tobacco Use Types Packs/Day Years [...] Adriane Pritchard documented as of this encounter Miscellaneous Notes * Clinician Note - Kaley Almanza RD - 05/18/2025 9:30 AM EST Contraindications to Transplant There are no nutritional barriers to liver transplant. BMI of 29.11 and Hgb A1C of 5.4% are within liver transplant guidelines. Transplant Clinic Nutrition Evaluation Evaluation Type: Listing Assessment. Organ Group: Liver. [place] Peña is a 54 y.o. female with history of decompensated MASH cirrhosis seen in clinic for liver transplant evaluation. Past Medical/Surgical History Past Medical History[1] Surgical History[2] Labs Lab Results Component Value Date GLUCOSE 135 (H) 05/18/2025 CALCIUM 9.4 05/18/2025 NA 132 (L) 05/18/2025 K 4.9 05/18/2025 CO2 23 05/18/2025 CL 100 05/18/2025 BUN 21 05/18/2025 CREATININE 1.10 05/18/2025 Lab Results Component Value Date CALCIUM 9.4 05/18/2025 Lab Results Component Value Date ALT 65 (H) 05/18/2025 AST 97 (H) 05/18/2025 GGT 52 (H) 05/18/2025 ALKPHOS 233 (H) 05/18/2025 BILITOT 2.2 (H) 05/18/2025 Lab Results Component Value Date HGBA1C 5.4 05/18/2025 Cholesterol-216 (H), HDL-85, LDL-115 (H), Triglycerides-93, Cholesterol Ratio-3 Medications Reviewed current outpatient medications. Pertinent medications include: Current Medications[3] Nutrition History Previous Visit with Dietitian? Yes (years ago). Home Diet: Diabetic, low sodium. Appetite: Normal appetite. Diabetes Management: Dexcom, glucometer check as needed, Ozempic, Jardiance, insulin (Lantus, Novolog). Nutrition-Related Symptoms: History of nausea/vomiting (has RX for Zofran), early satiety, heartburn. Food Allergies: NKFA. Food Preferences: No cultural or mormonism food preferences. Fluid Retention: History of ascites, edema. Protein Supplement Use: None. Additional Information: Met with patient and sister Emelia for pre-transplant listing consult. Appetite okay, diabetes well managed, consumes 2 meals/day and 1 snack. Reviewed pre-transplant nutrition recommendations with emphasis on meal frequency, protein intake, supplement use/alternate ways to supplement diet, diabetes management, sodium restriction/label reading for hidden sodium, and physical activity. Opportunity provided for questions, all of which were addressed. Anthropometric Measurements Height: 170.2 centimeters Current Weight: 84.3 kilograms [place] Body Weight: 61.4 kilograms (137%) Adjusted Body Weight: 67.1 kilograms BMI: 29.11 Weight Evaluation: Overweight (BMI 25 - 29.9) Weight History: Wt Readings from Last 10 Encounters: 05/18/25 84.3 kg (185 lb 13.6 oz) 04/03/25 78 kg (171 lb 15.3 oz) 03/08/25 75.9 kg (167 lb 5.3 oz) 02/22/24 82 kg (180 lb 12.4 oz) 05/14/23 102 kg (225 lb) 12/13/20 116 kg (256 lb 4.2 oz) 11/12/20 118 kg (260 lb 0.2 oz) 09/13/20 110 kg (242 lb) 04/09/20 107 kg (236 lb) 07/24/15 112 kg (246 lb 0.2 oz) Estimated Needs Kcal/K-32 Kcal recommended: 8547-7689 Kcal needs based on: Adjusted Body Weight Grams Protein/K.2-1.5 Grams Protein recommended: 81-101 Protein needs based on: Adjusted Body Weight Nutrition Diagnosis Increased nutrient needs (protein) related to increased metabolic demand as evidenced by decompensated cirrhosis. Status of Nutrition Diagnosis: New Decreased nutrient needs (sodium) related to compromised hepatic function as evidenced by need for sodium restriction. Status of Nutrition Diagnosis: New Nutrition Interventions - Education: pre-transplant. - Nutrition education materials: provided. - Patient verbalized understanding. - Oral nutrition supplements reviewed. Recommend protein supplement per patient preference as needed to increase protein intake. Monitoring and Evaluation RD contact information provided to patient. RD available for further consult as needed. Kaley Almanza, RD, LD [1] Past Medical History: Diagnosis Date Anemia Anisocoria Arthritis Cataract CHF (congestive heart failure) Diabetes mellitus 2019 History of transfusion Hypertension 2017 Iritis Iritis Migraine Osteomyelitis of vertebra, site unspecified (CMS/HCC) Spinal abscess Personal history of other diseases of the female genital tract History of ovarian cyst Unspecified cirrhosis of liver (CMS/HCC) Non-alcoholic cirrhosis [2] Past Surgical History: Procedure Laterality Date APPENDECTOMY BACK SURGERY N/A 1994 BACK SURGERY 2009 BREAST SURGERY N/A Breast Surgery Reduction Procedure Bilateral from [facility] EXPLORATORY LAPAROTOMY GALLBLADDER SURGERY 2018 GANGLION CYST EXCISION, WRIST Left INCISION AND DRAINAGE, ABCESS 2009 from back LIVER BIOPSY OTHER SURGICAL HISTORY N/A [facility] DRAINAGE N/A [facility] TOTAL ABDOMINAL HYSTERECTOMY N/A 2011 [facility] [3] Current Outpatient Medications: baclofen (Lioresal) 10 MG tablet, Take 1 tablet by mouth nightly. (Patient not taking: Reported on 05/18/2025), Disp: 30 tablet, Rfl: 0 bumetanide (Bumex) 1 MG tablet, Take 2 tablets by mouth 2 times a day., Disp: , Rfl: busPIRone (Buspar) 7.5 MG tablet, Take 1 tablet by mouth 2 times a day., Disp: , Rfl: cyclobenzaprine (Flexeril) 10 MG tablet, Take 1 tablet by mouth 3 times a day as needed for muscle spasms., Disp: , Rfl: desvenlafaxine (Pristiq) 100 MG 24 hr tablet, Take 50 mg by mouth daily., Disp: , Rfl: diclofenac (Voltaren) 1 % topical gel, Place 2 g on the skin 4 times a day as needed (joint pain).,Disp: , Rfl: diphenhydrAMINE (Benadryl) 50 MG tablet, - 50 mg PO 1 hour prior to the CT scan on 05-25-25, Disp: 1 tablet, Rfl: 0 ergocalciferol (Vitamin D-2) 1.25 MG (45256 UT) capsule, Take 1 capsule by mouth 1 time per week. Take on Tuesdays., Disp: , Rfl: FeroSul 325 (65 Fe) MG tablet, Take 1 tablet by mouth nightly., Disp: , Rfl: hydrOXYzine pamoate (Vistaril) 25 MG capsule, Take 1 capsule by mouth 3 times a day as needed for itching., Disp: , Rfl: insulin glargine (Lantus SoloStar) 100 UNIT/ML injection pen, Inject 20 Units under the skin every morning., Disp: , Rfl: Jardiance 25 MG, Take 1 tablet by mouth daily., Disp: , Rfl: lactulose (Chronulac) 10 GM/15ML oral solution, Take 15 mL by mouth 2 times a day., Disp: , Rfl: lansoprazole (Prevacid) [address] capsule, Take 1 capsule by mouth daily., Disp: , Rfl: lisinopril 2.5 MG tablet, Take 1 tablet by mouth daily., Disp: , Rfl: metoprolol succinate XL (Toprol-XL) 50 MG 24 hr tablet, Take 1 tablet by mouth daily., Disp: , Rfl: NovoLOG FLEXPEN 100 UNIT/ML injection pen, Inject 5 Units under the skin 3 times a day as needed for high blood sugar (for BG > 150)., Disp: , Rfl: ondansetron ODT (Zofran-ODT) 8 MG disintegrating tablet, Dissolve 1 tablet on the tongue every 8 hours as needed for nausea or vomiting., Disp: , Rfl: oxyCODONE (Roxicodone) 5 MG immediate release tablet, Take 1.5 tablets by mouth 3 times a day as needed for severe pain., Disp: , Rfl: Ozempic, 1 MG/DOSE, 4 MG/3ML solution pen-injector, Inject 1 mg under the skin 1 time per week., Disp: , Rfl: potassium chloride CR (Klor-Con M20) 20 MEQ ER tablet, Take 1 tablet by mouth 2 times a day., Disp:, Rfl: predniSONE (Deltasone) 50 MG tablet, 50 mg PO, 13, 7, and [address] to [address] Scan on 05-25-25.,Disp: 3 tablet, Rfl: 0 pregabalin (Lyrica) 25 MG capsule, Take 1 capsule by mouth daily., Disp: , Rfl: promethazine (Phenergan) 25 MG tablet, Take 1 tablet by mouth 3 times a day as needed for nausea orvomiting (if not helped by ondansetron)., Disp: , Rfl: rifAXIMin (Xifaxan) 550 MG tablet, Take 1 tablet by mouth 2 times a day., Disp: , Rfl: Rimegepant Sulfate (Nurtec) 75 MG tablet dispersible, Dissolve 1 tablet on the tongue daily as needed (migraine headache)., Disp: , Rfl: rOPINIRole (Requip) 1 MG tablet, Take 1 tablet by mouth 4 times a day., Disp: , Rfl: simvastatin (Zocor) 20 MG tablet, Take 1 tablet by mouth nightly., Disp: , Rfl: spironolactone (Aldactone) 100 MG tablet, Take 1.5 tablets by mouth daily., Disp: , Rfl: valACYclovir (Valtrex) 500 MG tablet, Take 1 tablet by mouth every morning., Disp: , Rfl: zinc sulfate (Zincate) 220 (50 Zn) MG capsule, Take 1 capsule by mouth 2 times a day., Disp: 240 capsule, Rfl: 2 documented in this encounter Plan of Treatment Upcoming Encounters Date Type Department Care Team (Late st Contact Info) Description 05/25/2025 11:30 AM EST Appointment [facility] [address] [place] [address] 05/25/2025 2:00 PM EST Appointment [facility] Function Testing [address] [place] [address] 05/25/2025 3:30 PM EST Appointment Cardiac Imaging [address] [place] [address] 05/31/2025 4:30 PM EST Appointment [facility] Breast Care [facility] [address] [place] [address] 06/12/2025 2:30 PM EST Office Visit [facility] [place] [address], [address] [place] [address] Juana Gale APRN [address] [place] [address] 06/20/2025 10:30 AM EST [facility] [address] [place] [address] Claire Davidson MD [address] [facility] [place] [address] 06/21/2025 2:00 PM EST Office Visit [facility] [address], [address] [place] [address] Claire Davidson MD [address] [place] [address] 07/17/2025 8:45 AM EST Clinical Support [facility] [address] [address] 07/17/2025 10:30 AM EST Office Visit [facility] [address] [address] Nj Johns MD [address] [place] [address] documented as of this encounter Visit Diagnoses Not on filedocumented in this encounter Additional Health Concerns Assessment Noted Time PHQ-9 Depression Total Score: 18 04/03/2 025 7:06 AM EDT A fall risk assessment has been complete d for the patient 05/18/2025 10:47 AM EST A Body Mass Index follow-up plan has been documented for the patient 05/21/2025 6:59 AM EST documented as of this encounter Care Teams Poured Wall Foreman Relationship Specialty Start Date End Date Trevor Rolon DO [address] [facility] [address] [place] [address] PCP - General 11/22/20 Mc Grant DO [address] [facility] [address] [place] [address] Referring Physician Gastroenterology 02/21/24 El Agarwal APRN [address] [place] [address] Referring Physician Gastroenterology 03/21/25 documented as of this encounter
--- OUTSIDE RECORDS SUMMARY | 2025-05-18 10:50 | XMS_ITS | Encounter Summary ---
Author Organization [facility] Address [address] [place] [address] Care Team Providers Care Comb Winder Name Role Phone Trevor Rolon DO Primary Care Provider [phone] Mc Grant DO Unavailable [phone] El Agarwal HELPDESK ADMINISTRATOR Unavailable [phone] Reason for Visit * Reason Comments Pre-Liver Txp Follow-up * Transplant (Routine) - Pending Review Specialty Diagnoses / Procedures Referred By Truong t Referred To Contact Transplant Diagnoses End-stage liver disease (CMS/HCC) Kaela Khan MD [address] [place] [address] Phone: tel: fax: [facility] [address] [place] [address] Phone: tel: fax: Referral ID Status Reason Start Date Expiration Date Visits Requested Visits Authorized [id number] Pending Review Specialty Services Required 04/09/2025 10/09/2026 999 999 Encounter Details Date Type Department Care Team (Late st Contact Info) Description 05/18/2025 10:50 AM EST Office Visit [facility] [address] [place] [address] Nj Johns MD [address] [place] [address] End-stage liver disease (CMS/HCC) Social History Tobacco Use Types Packs/Day [...] Sign Reading Time Taken Comments Blood Pressure 96/61 05/18/2025 10:44 AM EST Pulse 97 05/18/2025 10:44 AM EST Temperature 36.7 C (98.1 F) 05/18/2025 10:44 AM EST Respiratory Rate 16 05/18/2025 10:4 4 AM EST Oxygen Saturation 99% 05/18/2025 10: 44 AM EST Inhaled Oxygen Concentration - - Weight 84.3 kg (185 lb 13.6 oz) 025 10:44 AM EST Height 170.2 cm (5' 7 ) 05/18/2025 10:4 4 AM EST Body Mass Index 29.11 05/18/2025 10:44 AM EST documented in this encounter Functional Status * Over the past 2 weeks, how often have you been bothered by any of the following problems? Question Answer Date of Assessment Author Little interest or pleasure in doing things Not at all 05/18/2025 10:47 AM EST MacarioAdriane rodriguez D Feeling down, depressed, or hopeless Not at all 05/18/2025 10:47 AM EST Macario, Adriane D Patient Health Questionnaire -2 Score 0 05/18/2025 10:47 AM EST Adriane Macario Ernie documented as of this encounter Plan of Treatment Upcoming Encounters Date Type Department Care Team (Late st Contact Info) Description 05/25/2025 11:30 AM EST Appointment [facility] [address] [place] [address] 05/25/2025 2:00 PM EST Appointment [facility] Function [facility] [address] [place] [address] 05/25/2025 3:30 PM EST Appointment Cardiac Imaging [address] [place] [address] 05/31/2025 4:30 PM EST Appointment [facility] [address] [place] [address] 06/12/2025 2:30 PM EST Office Visit [facility] [place] [address] [place] [address] Juana Gale, HELPDESK ADMINISTRATOR [address] [place] [address] 06/20/2025 10:30 AM EST Procedure Visit [facility] [address] [place] [address] Claire Davidson MD [id number] [place] [address] 06/21/2025 2:00 PM EST Office Visit [facility] [address], [address] [place] [address] Claire Davidson MD [address] [facility] [address] [place] [address] 07/17/2025 8:45 AM EST Clinical Support [facility] [address] [facility] [address] [place] [address] 07/17/2025 10:30 AM EST Office Visit [facility] [address] [place] [address] Nj Johns MD [address] [place] [address] documented as of this encounter Visit Diagnoses Diagnosis End-stage liver disease (CMS/HCC) Other sequelae of chronic liver disease documented in this encounter Additional Health Concerns Assessment Noted Time PHQ-9 Depression Total Score: 18 025 7:06 AM EDT A fall risk assessment has been complete d for the patient 05/18/2025 10:47 AM EST A Body Mass Index follow-up plan has been documented for the patient 05/21/2025 6:59 AM EST documented as of this encounter Care Teams Comb Winder Relationship Specialty Start Date End Date Trevor Rolon DO [address] [facility] [address] [place] [address] PCP - General 11/22/20 Mc Grant DO [address] [facility] [address] [place] [address] Referring Physician Gastroenterology 02/21/24 El Agarwal APRN [address] [place] [address] Referring Physician Gastroenterology 03/21/25 documented as of this encounter
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
--- OUTSIDE RECORDS SUMMARY | 2025-05-18 13:00 | XMS_ITS | Encounter Summary ---
Author Organization [facility] Address [address] [place] [address] Care Team Providers Care Supervisor Edging Name Role Phone Trevor Rolon DO Primary Care Provider [phone] Mc Grant DO Unavailable [phone] El Agarwal PUBLIC HEALTH OUTREACH WORKER Unavailable [phone] Encounter Details Date Type Department Care Team (Latest Contact Info) Description 05/18/2025 1:00 PM EST - 05/18/2025 1:29 PM [facility] [address] [place] [address] End-stage liver disease (CMS/HCC) Discharge Disposition: Home [...] a day as needed (joint pain). 03/24/2022 diphenhydrAMINE (Benadryl) 50 MG tablet - 50 mg PO [address] prior to [address] scan on 05-25-25 1 tablet 05/17/2025 ergocalciferol (Vitamin D-2) 1.25 MG (64860 UT) capsule Take 1 capsule by mouth [...] by mouth 2 times a day. 08/04/2022 predniSONE (Deltasone) 50 MG tablet 50 mg PO, 13, 7, and 1 hour prior to the CT Scan on 05-25-25. 3 tablet 05/18/2025 pregabalin (Lyrica) 25 MG capsule Take 1 [...] times a day. 240 capsule 2 05/18/2025 documented as of this encounter Plan of Treatment Upcoming Encounters Date Type Department Care Team (Late st Contact Info) Description 05/25/2025 11:30 AM EST Appointment [facility] [address] [place] [phone] 05/25/2025 2:00 PM EST Appointment [facility] Pul[facility] Function [facility] [address] [place] [address] 05/25/2025 3:30 PM EST Appointment Cardiac Imaging [address] [place] [address] 05/31/2025 4:30 PM EST Appointment [facility] [address] [place] [address] 06/12/2025 2:30 PM EST Office Visit [facility] [address] [place] [address] Juana Gale APRN [address] [place] [address] 06/20/2025 10:30 AM EST Procedure Visit [facility] [address] [place] [address] Claire Davidson MD [address] [place] [address] 06/21/2025 2:00 PM EST Office Visit [facility] [address] [place] [address] Claire Davidson MD [address] [place] [phone] 07/17/2025 8:45 AM EST Clinical Support [facility] [place] [address] [place] [phone] 07/17/2025 10:30 AM EST Office Visit [facility] [place] [address] [place] [address] Nj Johns MD [address] [place] [address] documented as of this encounter Procedures [...] forearm, right forearm was performed using a [employer] Horizon A Dual-energy X-ray Absorptiometry (DXA) scanner [...] left forearm, right forearm wasperformed using a [employer] Horizon A Dual-energy X-ray Absorptiometry (DXA)scanner (software [...] as of this encounter Care Teams Supervisor Edging Relationship Specialty Start Date End Date Trevor Rolon DO [address] [facility] [address] [place] [address] PCP - General 11/22/20 Mc Grant DO [address] [facility] [address] [place] [address] Referring Physician Gastroenterology 02/21/24 El Agarwal APRN [address] [place] [address] Referring Physician Gastroenterology 03/21/25 documented as of this encounter
--- OUTSIDE RECORDS SUMMARY | 2025-05-18 13:30 | XMS_ITS | Encounter Summary ---
Author Organization [facility] Address [address] [place] [address] Care Team Providers Care Campus Security Director Name Role Phone Trevor Rolon DO Primary Care Provider Mc Grant DO Unavailable [phone] El Agarwal CARTOGRAPHIC DESIGNER Unavailable [phone] Encounter Details Date Type Department Care Team (Latest Contact Info) Description 05/18/2025 1:30 PM [facility] Hospital Encounter [place] [facility] Radiology [address], [address] [place] [address] End-stage liver disease (CMS/HCC) Discharge Disposition: Home [...] tablet 05/17/2025 ergocalciferol (Vitamin D-2) 1.25 MG (52634 UT) capsule Take 1 capsule by mouth [...] EST Appointment [facility] [address] [place] [address] 05/25/2025 2:00 PM EST Appointment [facility] Pul[facility] Function Testing [address] [place] [address] 05/25/2025 3:30 PM EST Appointment Cardiac Imaging [address] [place] [address] 05/31/2025 4:30 PM EST Appointment [facility] [address] [place] [address] 06/12/2025 2:30 PM EST Office Visit [facility] [place] [address] [facility] [address] [place] [address] Juana Gale APRN [address] [place] [address] 06/20/2025 10:30 AM EST Procedure Visit [place] [facility] [address] [place] [address] Claire Davidson MD [address] [facility] [address] [place] [address] 06/21/2025 2:00 PM EST Office Visit [facility] [address], [address] [place] [address] Claire Davidson MD [address] [place] [address] 07/17/2025 8:45 AM EST Clinical Support [facility] [address] [place] [address] 07/17/2025 10:30 AM EST Office Visit [facility] [address] [place] [address] Nj Johns MD [address] [place] [address] documented as of this encounter Procedures [...] documented as of this encounter Care Teams Campus Security Director Relationship Specialty Start Date End Date Trevor Rolon DO [address] [facility] [address] [place] [address] PCP - General 11/22/20 Mc Grant DO [address] [facility] [address] [place] [address] Referring Physician Gastroenterology 02/21/24 El Agarwal APRN [address] [place] [address] Referring Physician Gastroenterology 03/21/25 documented as of this encounter
--- OUTSIDE RECORDS SUMMARY | 2025-05-18 13:30 | XMS_ITS | Encounter Summary ---
Author Organization [facility] Address [address] [place] [address] Care Team Providers Care Bit Gatherer Name Role Phone Trevor Rolon DO Primary Care Provider Mc Grant DO Unavailable [phone] El Agarwal ANALYTICAL LAB ANALYST Unavailable [phone] Encounter Details Date Type Department Care Team (Latest Contact Info) Description 05/18/2025 1:30 PM [facility] Hospital Encounter [place] [facility] Radiology [address] [place] [address] End-stage liver disease (CMS/HCC) Discharge Disposition: Home [...] tablet 05/17/2025 ergocalciferol (Vitamin D-2) 1.25 MG (29409 UT) capsule Take 1 capsule by mouth [...] EST Appointment [facility] [address] [place] [address] 05/25/2025 2:00 PM EST Appointment [facility] Pul[facility] Function Testing [address] [place] [address] 05/25/2025 3:30 PM EST Appointment Cardiac Imaging [address] [place] [address] 05/31/2025 4:30 PM EST Appointment [facility] [address] [place] [address] 06/12/2025 2:30 PM EST Office Visit [facility] [place] [address] [facility], [address] [place] [address] Juana Gale APRN [address] [place] [address] 06/20/2025 10:30 AM EST Procedure Visit [place] [facility] [address] [place] [address] Claire Davidson MD [address] [facility] [address] [place] [address] 06/21/2025 2:00 PM EST Office Visit [facility] [address] [facility], [address] [place] [address] Claire Davidson MD [address] [facility] [place] [address] 07/17/2025 8:45 AM EST Clinical Support [facility] Trans[facility] [place] [address] [place] [address] 07/17/2025 10:30 AM EST Office Visit [facility] [address] [place] [address] Nj Johns MD [address] [place] [address] documented as of this encounter Procedures [...] documented as of this encounter Care Teams Bit Gatherer Relationship Specialty Start Date End Date Trevor Rolon DO [address] [facility] [address] [place] [address] PCP - General 11/22/20 Mc Grant DO [address] [facility] [address] [place] [address] Referring Physician Gastroenterology 02/21/24 El Agarwal APRN [address] [place] [address] Referring Physician Gastroenterology 03/21/25 documented as of this encounter
--- OUTSIDE RECORDS SUMMARY | 2025-05-18 14:00 | XMS_ITS | Encounter Summary ---
Author Organization [facility] Address [address] [place] [address] Care Team Providers Care Dental Resident Name Role Phone Trevor Rolon DO Primary Care Provider [phone] Mc Grant DO Unavailable [phone] El Agarwal RELIABILITY TECHNICIANS Unavailable [phone] Reason for Visit * Consultation (Routine) - Closed Specialty Diagnoses / Procedures Referred By Truong bella Referred To Contact Transplant Diagnoses End-stage liver disease (CMS/HCC) Kaela Khan MD [address] [place] [address] Phone: tel: fax: [facility] [place] [address] [facility] [address] [place] [address] Phone: tel: fax: Referral ID Status Reason Start Date Expiration Date V isits Requested Visits Authorized [id number] Closed Specialty Services Required 04/09/2025 10/09/2026 1 1 Encounter Details Date Type Department Care Team (Late st Contact Info) Description 05/18/2025 2:00 PM EST Pharmacist Visit [facility] Trans[facility] [address] [place] [address] Jemma Mancuso, PharmD [address] [place] [address] Encounter for pre-transplant evaluation for liver transplant (Primary Dx) Social History Tobacco Use Types [...] all 05/18/2025 10:47 AM EST Adriane Macario Patient Health Questionnaire -2 Score 0 05/18/2025 10:47 AM Adriane Pritchard documented as of this encounter Miscellaneous Notes * Progress Notes - Jemma Mancuso, PharmD - 05/18/2025 2:00 PM EST PRE-TRANSPLANT PHARMACY EVALUATION Patient name: Trudy Peña : 1970 (54 y.o.) Type of transplant: liver Previous transplant(s) (previous transplant date(s), if applicable): No Allergies: Allergies Allergen Reactions Oxycodone-Acetaminophen Hallucinations Notes she has taken oxycodone and APAP by themselves without any issue since and that she was in the hospital for autoimmune skin disorder when she experienced the reaction, so likely rxn was unrelated to the Percocet. Povidone Iodine Itching and Rash With Betadine (topical). Sulfa Drugs Hives Vortioxetine Itching and Rash Wound Dressing Adhesive Other - please document in the comment field Breaks out where skin comes in contact with adhesive. Prevents wound healing if over a wound (e.g.,incision opened up where covering incision from breast reduction surgery). Pertinent allergies/medication intolerances related to transplant medications: Yes, see sulfa allergy above. Current Medications: Current Outpatient Medications Medication Instructions baclofen (LIORESAL) 10 mg, Oral, Nightly -- not yet started (pharmacy fill error) bumetanide (BUMEX) 2 mg, 2 times daily (0900 & 1500) busPIRone (Buspar) 7.5 MG tablet Take 1 tablet by mouth 2 times a day. cyclobenzaprine (FLEXERIL) 10 mg, 3 times daily PRN desvenlafaxine (PRISTIQ) 50 mg, Daily diclofenac (Voltaren) 1 % topical gel Place 2 g on the skin 4 times a day as needed (joint pain). ergocalciferol (VITAMIN D-2) 1.25 mg, Weekly FeroSul 325 mg, Nightly hydrOXYzine pamoate (Vistaril) 25 MG capsule Take 1 capsule by mouth 3 times a day as needed for itching. Jardiance 25 mg, Daily lactulose (CHRONULAC) 10 g, 2 times daily lansoprazole (PREVACID) 30 mg, Daily Lantus SoloStar 20 Units, Every morning lisinopril 2.5 mg, Daily metoprolol succinate XL (TOPROL-XL) 50 mg, Daily NovoLOG FLEXPEN 100 UNIT/ML injection pen Inject 5 Units under the skin 3 times a day as needed forhigh blood sugar (for BG > 150). ondansetron ODT (ZOFRAN-ODT) 8 mg, Every 8 hours PRN oxyCODONE (Roxicodone) 5 MG immediate release tablet Take 1.5 tablets by mouth 3 times a day as needed for severe pain. Ozempic, 1 MG/DOSE, 4 MG/3ML solution pen-injector Inject 1 mg under the skin 1 time per week. potassium chloride CR (Klor-Con M20) 20 MEQ ER tablet 20 mEq, 2 times daily pregabalin (Lyrica) 25 MG capsule Take 1 capsule by mouth daily. promethazine (Phenergan) 25 MG tablet Take 1 tablet by mouth 3 times a day as needed for nausea or vomiting (if not helped by ondansetron). rifAXIMin (XIFAXAN) 550 mg, 2 times daily Rimegepant Sulfate (Nurtec) 75 MG tablet dispersible Dissolve 1 tablet on the tongue daily as needed (migraine headache). rOPINIRole (REQUIP) 1 mg, 4 times daily simvastatin (ZOCOR) 20 mg, Nightly spironolactone (Aldactone) 100 MG tablet Take 1.5 tablets by mouth daily. valACYclovir (VALTREX) 500 mg, Every morning zinc sulfate (ZINCATE) 220 mg, Oral, 2 times daily -- not yet started (new start 05/18/25) Hepatitis Serologies (liver transplant only): Hepatitis B Surf Antigen (no units) Date/Time Value 04/03/2025 0638 Negative 02/22/2024 0730 Negative 09/08/2019 1359 NEGATIVE Reference Value: Negative Hepatitis B Surface Antibody (no units) Date/Time Value 09/08/2019 1359 0.00 NEGATIVE Antibodies to HBsAg are less than 8 International Units/L which indicate they are not detected or are below the protective level for immunity. Hepatitis B Core Total Antibody IgG,IgM (no units) Date/Time Value 05/18/2025 0847 Negative Hepatitis C Antibody (no units) Date/Time Value 04/03/2025 0638 Negative 02/22/2024 0730 Negative Most recent HBsAg negative; HBIG not Indicated at this time based on current serologies. Medication Review: Medication reconciliation performed during transplant evaluation: yes Benzodiazepine/opiate use prior to transplant: Yes, prescribed oxycodone 7.5 mg TID PRN severe pain, which she uses regularly along with pregabalin (Lyrica) and diclofenac (Voltaren) gel (also has muscle relaxants and ropinirole (Requip) for leg cramping/jerks. I discussed with patient that, while the transplant team manages acute post-surgical pain after transplant, the patient will need to continue to follow with her current provider for ongoing management of any chronic pain issues. Anticoagulation/antiplatelet use prior to transplant: No Adherence concerns identified: No Medication education provided: Typical post-transplant immunosuppressive and anti-infective prophylaxis medications were reviewed briefly with the patient. Medication indications, anticipated duration of medication therapy, and common side effects were discussed. A sample post-transplant medicationregimen sheet was provided and reviewed with the patient. Patient was educated on the importance ofmedication adherence for graft survival post-transplant. Patient was given the opportunity to ask questions, all of which were addressed. Medication issues/concerns to be addressed prior to listing: Patient is on a GLP-1 agonist which can slow down gastric emptying, meaning there's a higher chanceof having stomach contents present during anesthesia, even after fasting. Anesthesiologist to assess the patient and take any precautions (e.g., take full stomach precautions) to minimize the risk of aspiration, but recommend holding semaglutide (Ozempic) when called in for transplant. Patient is on SGLT2 inhibitor, which can increase the risk of euglycemic diabetic ketoacidosis (eDKA) in the perioperative period. Recommend that patient stop empagliflozin (Jardiance) when called infor transplant and that team be made aware to monitor for eDKA. Alert will need to be put in Epic for the on- call RN coordinator. Patient reports sulfa allergy (hives). Recommend using dapsone as alternative to SMZ-TMP for PJP prophylaxis post-transplant. Perioperative antibiotic plan: no beta-lactam allergy - standard antibiotic regimen Contraindications to transplant: Any issues/concerns noted above should be addressed prior to listing. Otherwise, there are no identified pharmacologic contraindications to transplant. Jemma Mancuso PharmD Transplant Clinical Pharmacist documented in this encounter Plan of Treatment Upcoming Encounters Date Type Department Care Team (Late st Contact Info) Description 05/25/2025 11:30 AM EST Appointment [facility] [address] [place] [address] 05/25/2025 2:00 PM EST Appointment [facility] Pul[facility] Function Testing [address] [place] [address] 05/25/2025 3:30 PM EST Appointment Cardiac Imaging [address] [place] [address] 05/31/2025 4:30 PM EST Appointment [facility] Amandeep Valdes [facility] [address] [place] [address] 06/12/2025 2:30 PM EST Office Visit [facility] [place] [address] [address] [facility] [address], [address] [place] [address] Juana Gale, RELIABILITY TECHNICIANS [address] [place] [address] 06/20/2025 10:30 AM EST Procedure Visit [facility] [address] 1[address] [place] [address] Claire Davidson MD [address] [place] [address] 06/21/2025 2:00 PM EST Office Visit [facility] [address] [facility] [address] [address], [address] [place] [address] Claire Davidson MD [address] [place] [address] 07/17/2025 8:45 AM EST Clinical Support [facility] [address] [place] [address] 07/17/2025 10:30 AM EST Office Visit [facility] [place] [address] [place] [address] Nj Johns MD [address] [place] [address] documented as of this encounter Visit Diagnoses Diagnosis Encounter for pre-transplant evaluation for liver transplant- Primary documented in this encounter Additional Health Concerns Assessment Noted Time PHQ-9 Depression Total Score: 18 025 7:06 AM EDT A fall risk assessment has been complete d for the patient 05/18/2025 10:47 AM EST A Body Mass Index follow-up plan has been documented for the patient 05/21/2025 6:59 AM EST documented as of this encounter Care Teams Dental Resident Relationship Specialty Start Date End Date Trevor Rolon DO [address] [facility] [address] [place] [address] PCP - General 11/22/20 Mc Grant DO [address] [facility] [address] [place] [address] Referring Physician Gastroenterology 02/21/24 El Agarwal APRN [address] [place] [address] Referring Physician Gastroenterology 03/21/25 documented as of this encounter
--- OUTSIDE RECORDS SUMMARY | 2025-05-22 10:40 | XMS_ITS | Encounter Summary ---
Author Organization [facility] Address [address] [place] [address] Care Team Providers Care Insurance Processing Clerk Name Role Phone Trevor Rolon DO Primary Care Provider Mc Grant DO Unavailable [phone] El Agarwal CHIEF DEPUTY Unavailable [phone] Encounter Details Date Type Department Care Team (Latest Contact Info) Description 05/22/2025 10:40 AM EST - 05/22/2025 11:59 PM [facility] Hospital Encounter ID Clinic Radiology [address], [address] [place] [address] Lumbar radiculopathy; Cervical spondylosis with myelopathy Discharge Disposition: Home or Self Care Social [...] tablet 05/17/2025 ergocalciferol (Vitamin D-2) 1.25 MG (64393 UT) capsule Take 1 capsule by mouth [...] blood sugar (for BG > 150). 09/01/2024 ondansetron ODT (Zofran-ODT) 8 MG disintegrating tablet Dissolve 1 tablet on the tongue every 8 hours as needed for nausea or vomiting. oxyCODONE (Roxicodone) 5 MG immediate release tablet [...] zinc sulfate (Zincate) 220 (50 Zn) MG capsuleIndications:E nd-stage liver disease (CMS/HCC) Take 1 capsule by mouth 2 times a day. 240 capsule 2 05/18/2025 documented as of this encounter Plan of Treatment Upcoming Encounters Date Type Department Care Team (Late st Contact Info) Description 05/25/2025 11:30 AM EST Appointment [facility] Rad[facility] [address] [place] [address] 05/25/2025 2:00 PM EST Appointment [facility] Pulmonary Function Testing [address] [place] [address] 05/25/2025 3:30 PM EST Appointment Cardiac Imaging [address] [place] [address] 05/31/2025 4:30 PM EST Appointment [facility] [address] [facility] [address] [place] [address] 06/12/2025 2:30 PM EST Office Visit [facility] [place] [address], [address] [place] [address] Juana Gale APRN [address] [place] [address] 06/20/2025 10:30 AM EST Procedure Visit [facility] [address], [address] [place] [address] Claire Davidson MD [address] [place] [address] 06/21/2025 2:00 PM EST Office Visit [facility] [address], [address] [place] [address] Claire Davidson MD [address] [place] [address] 07/17/2025 8:45 AM EST Clinical Support [facility] [address] [place] [address] 07/17/2025 10:30 AM EST Office Visit [facility] [address] [place] [address] Nj Johns MD [address] [place] [address] documented as of this encounter Procedures Procedure Name Priority Date/Time Associated Diagnosis Comments XR LUMBAR SPINE 4 VIEWS TO INCLUDE FLEXION EXTENSION Routine 05/22/2025 11:32 AM EST Lumbar radiculopathy XR CERVICAL SPINE COMPLETE 4 TO 5 VIEWS Routine 05/22/2025 11:32 AM EST Cervical spondylosis with myelopathy documented in this encounter Results * XR Cervical Spine Complete 4 To 5 Views (05/22/2025 11:32 AM EST) Anatomical Region Laterality Modality Spine, C-spine Digital Radiogra phy Impressions 05/22/2025 12:08 PM EST Degenerative changes without acute abnormality identified. CRITICAL RESULT: No. COMMUNICATION: Per this written report. Drafted by Grant Briseno MD on 05/22/2025 12:06 PM Final report signed by Grant Briseno MD on 05/22/2025 12:08 PM Narrative 05/22/2025 12:08 PM EST CLINICAL INDICATION: Pain. TECHNIQUE: XR LUMBAR SPINE 4 VIEWS TO INCLUDE FLEXION EXTENSION, XR CERVICAL SPINE COMPLETE 4 TO 5 VIEWS COMPARISON: None. FINDINGS: Cervical: No fracture, subluxation, or dislocation. No prevertebral soft tissue swelling. Straightening of the normal cervical lordosis. Mild C5-6 and moderate C6-7 and mild C7-T1 disc space narrowing. Moderate C7-T1 facet arthropathy. No subluxation between flexion and extension radiographs. Lung apices are clear. Lumbar: Cholecystectomy clips are present. Mild dextroscoliosis. Mild left greater than right hip osteoarthritis. No renal collecting system stone. Moderate colonic stool burden. Anterolisthesis of L4 on L5 is grade 1. Moderate to severe L3-S1 facet arthropathy. Mild L3-4, moderate L4-5 and L5-S1 disc space narrowing. No subluxation between flexion and extension radiographs. No fracture or dislocation. No radiopaque foreign body. Procedure Note Grant Briesno MD - 05/22/2025 CLINICAL INDICATION: Pain. TECHNIQUE: XR LUMBAR SPINE 4 VIEWS TO INCLUDE FLEXION EXTENSION, XR CERVICAL SPINECOMPLETE 4 TO 5 VIEWS COMPARISON: None. FINDINGS: Cervical: No fracture, subluxation, or dislocation. No prevertebral softtissue swelling. Straightening of the normal cervical lordosis. Mild C5-6and moderate C6-7 and mild C7-T1 disc space narrowing. Moderate C7-D5dhlbw arthropathy. No subluxation between flexion and extensionradiographs. Lung apices are clear. Lumbar: Cholecystectomy clips are present. Mild dextroscoliosis. Mild leftgreater than right hip osteoarthritis. No renal collecting system stone.Moderate colonic stool burden. Anterolisthesis of L4 on L5 is grade 1.Moderate to severe L3-S1 facet arthropathy. Mild L3-4, moderate L4-5 andL5-S1 disc space narrowing. No subluxation between flexion and extensionradiographs. No fracture or dislocation. No radiopaque foreign body. IMPRESSION: Degenerative changes without acute abnormality identified. CRITICAL RESULT: No. COMMUNICATION: Per this written report. Drafted by Grant Briseno MD on 05/22/2025 12:06 PM Final report signed by Grant Briseno MD on 05/22/2025 12:08 PM Sivan Isaac CHIEF DEPUTY, DNP IMG XR PROCEDURES Jennifer l Result * XR Lumbar Spine 4+ Views w Flexion Extension (05/22/2025 11:32 AM EST) Anatomical Region Laterality Modality Spine, L-spine Digital Radiogra phy Impressions 05/22/2025 12:08 PM EST Degenerative changes without acute abnormality identified. CRITICAL RESULT: No. COMMUNICATION: Per this written report. Drafted by Grant Briseno MD on 05/22/2025 12:06 PM Final report signed by Grant Briseno MD on 05/22/2025 12:08 PM Narrative 05/22/2025 12:08 PM EST CLINICAL INDICATION: Pain. TECHNIQUE: XR LUMBAR SPINE 4 VIEWS TO INCLUDE FLEXION EXTENSION, XR CERVICAL SPINE COMPLETE 4 TO 5 VIEWS COMPARISON: None. FINDINGS: Cervical: No fracture, subluxation, or dislocation. No prevertebral soft tissue swelling. Straightening of the normal cervical lordosis. Mild C5-6 and moderate C6-7 and mild C7-T1 disc space narrowing. Moderate C7-T1 facet arthropathy. No subluxation between flexion and extension radiographs. Lung apices are clear. Lumbar: Cholecystectomy clips are present. Mild dextroscoliosis. Mild left greater than right hip osteoarthritis. No renal collecting system stone. Moderate colonic stool burden. Anterolisthesis of L4 on L5 is grade 1. Moderate to severe L3-S1 facet arthropathy. Mild L3-4, moderate L4-5 and L5-S1 disc space narrowing. No subluxation between flexion and extension radiographs. No fracture or dislocation. No radiopaque foreign body. Procedure Note Grant Briseno MD - 05/22/2025 CLINICAL INDICATION: Pain. TECHNIQUE: XR LUMBAR SPINE 4 VIEWS TO INCLUDE FLEXION EXTENSION, XR CERVICAL SPINECOMPLETE 4 TO 5 VIEWS COMPARISON: None. FINDINGS: Cervical: No fracture, subluxation, or dislocation. No prevertebral softtissue swelling. Straightening of the normal cervical lordosis. Mild C5-6and moderate C6-7 and mild C7-T1 disc space narrowing. Moderate C7-D3hrwgl arthropathy. No subluxation between flexion and extensionradiographs. Lung apices are clear. Lumbar: Cholecystectomy clips are present. Mild dextroscoliosis. Mild leftgreater than right hip osteoarthritis. No renal collecting system stone.Moderate colonic stool burden. Anterolisthesis of L4 on L5 is grade 1.Moderate to severe L3-S1 facet arthropathy. Mild L3-4, moderate L4-5 andL5-S1 disc space narrowing. No subluxation between flexion and extensionradiographs. No fracture or dislocation. No radiopaque foreign body. IMPRESSION: Degenerative changes without acute abnormality identified. CRITICAL RESULT: No. COMMUNICATION: Per this written report. Drafted by Grant Briseno MD on 05/22/2025 12:06 PM Final report signed by Grant Briseno MD on 05/22/2025 12:08 PM Sivan Isaac CHIEF DEPUTY, DNP IMG XR PROCEDURES Jennifer l Result documented in this encounter Visit Diagnoses Diagnosis Lumbar radiculopathy Thoracic or lumbosacral neuritis or radiculitis, unspecified Cervical spondylosis with myelopathy documented in this encounter Additional Health Concerns Assessment Noted Time PHQ-9 Depression Total Score: 18 025 7:06 AM EDT A fall risk assessment has been complete d for the patient 05/22/2025 12:43 PM EST A Body Mass Index follow-up plan has been documented for the patient 05/23/2025 12:13 PM EST documented as of this encounter Care Teams Insurance Processing Clerk Relationship Specialty Start Date End Date Trevor Rolon DO [address] [address] PCP - General 11/22/20 Mc Grant DO [address] [address] Referring Physician Gastroenterology 02/21/24 El Agarwal APRN [address] [place] [address] Referring Physician Gastroenterology 03/21/25 documented as of this encounter
--- OUTSIDE RECORDS SUMMARY | 2025-05-22 11:15 | XMS_ITS | Encounter Summary ---
Author Organization [facility] Address [address] [place] [address] Care Team Providers Care Leather Sprayer Name Role Phone Trevor Rolon DO Primary Care Provider [phone] Mc Grant DO Unavailable [phone] El Agarwal SPONGE FISHERMAN Unavailable [phone] Reason for Referral * Consultation (Routine) - Authorized Specialty Diagnoses / Procedures Referred By Truong bella Referred To Contact Pain Medicine Diagnoses Lumbar radiculopathy Nigel Recinos MD [address] [address] Phone: tel: fax: Referral ID Status Reason Start Date Expiration Date Visits Requested Visits Authorized [id number] Authorized Specialty Services Required 11/21/2026 1 1 Scheduling Instructions Please send patient with [facility] * Imaging (Routine) - Pending Review Specialty Diagnoses / Procedures Referred By Conttrudy t Referred To Contact Radiology Diagnoses Lumbar radiculopathy Procedures MR Thoracic Spine wo IV Contrast Nigel Recinos MD [address] [place] [address] Phone: tel: fax: Referral ID Status Reason Start Date Expiration Date V isits Requested Visits Authorized [id number] Pending Review 05/22/2025 11/21/2026 1 1 Reason for Visit * Consultation (Routine) - Closed Specialty Diagnoses / Procedures Referred By Contac t Referred To Contact Neurosurgery Diagnoses Lumbosacral radiculopathy Claire Davidson MD [address] [address] Phone: tel: fax: Referral ID Status Reason Start Date Expiration Date V isits Requested Visits Authorized [id number] Closed Specialty Services Required 03/08/2025 09/07/2026 1 1 Encounter Details Date Type Department Care Team (Late st Contact Info) Description 05/22/2025 11:15 AM EST Consult [place] [facility] [address] [place] [address] Nigel Recinos MD [address] [address] Lumbar radiculopathy (Primary Dx); Cervical spondylosis with myelopathy Social History Tobacco Use Types Packs/Day Years [...] Sign Reading Time Taken Comments Blood Pressure 122/64 05/22/2025 12:38 PM EST Pulse - - Temperature - - Respiratory Rate - - Oxygen Saturation - - Inhaled Oxygen Concentration - - Weight 83.9 kg (185 lb) 05/22/2025 12:38 PM EST Height 170.2 cm (5' 7 ) 05/22/2025 12:38 PM EST Body Mass Index 28.98 05/22/2025 12:38 PM EST documented in this encounter Miscellaneous Notes * Progress Notes - David Power - 05/22/2025 11:15 AM EST We had the pleasure of seeing your patient in our clinic today for continued Neurosurgical evaluation. Chief Complaint: neck pain History Of Present Illness: Trudy Peña is a 54 y.o. female with hx of T2DM,decompensated GOOD cirrhosis, currently undergoing work up for possible liver transplant, psoriatic arthritis, history of leukocytoclastic vasculitis, history of L5-S1 laminectomy presenting to clinic for evaluation of cervical stenosis. Patient was recently evaluated in Neurology clinic for neuropathy. MRI C spine showed multi-level degenerative changes, with large C5-6 disc herniation with resultant severe central canal stenosis, for which she was referred to neurosurgical clinic. Patient reports difficulty with ambulation, feelsunstable on feet and uncomfortable walking up stairs without assistance, as well as fine motor tasks citing frequently dropping things, having difficulty with buttoning shirts. Manages conservativelywith OTC pain medication, as well as activity modification with minimal relief. Reports that Pain management has plans for possible IMELDA, but have held off pending liver transplant work up. She additionally reports mid back pain without radiation at the level of her bra strap as well as low back pain with radiation down the posterolateral aspect of her LLE in to her foot, as well as theantierior thigh to her knee on the right. She has previously undergone L MARTIN with pain management in [place] however states that due to her Liver transplant candidacy she has moved to [place] and requests re-referral to pain management in [facility]. Denies any recent PT for low back pain. Social History, Medications, and Allergies reviewed and noted below or in HPI Current Scheduled Medications[1] Current Continuous Medications[2] Current PRN Medications[3] Oxycodone-acetaminophen, Povidone iodine, Sulfa drugs, Vortioxetine, and Wound dressing adhesive Physical Exam GEN: well developed, no acute distress Neuro Exam Strength: Delt Bi Tri Classroom Paraprofessional RUE: 5/5 5/5 5/5 5/5 LUE: 5/5 5/5 5/5 5/5 HF KE KF DF PF RLE: 5/5 5/5 5/5 5/5 5/5 LLE: 5/5 4/5 4/5 4/5 4/5 Sensation intact throughout bilateral upper and lower extremities Tandem gait intact, difficulty with heel to toe. Positive munguia bilaterally. Imaging I personally reviewed MRI C spine 05/14/2025 large left-sided herniation at C5-6 markedly compressing the left ventral cord and perhaps with associated myelomalacia. Assessment and Plan Trudy Peña is a 54 y.o. female with GOOD cirrhosis, presenting to clinic for evaluation of symptomatic cervical stenosis. Patient appears myelopathic on exam. We discussed the utility in surgical intervention in the form of two level ACDF vs. Posterior cervical fusion. We discussed given hercurrent liver disease that she is at an elevated risk for bleeding. With this in mind, we discussed continued treatment with conservative measures. We will send patient for up to date MRI T spine, aswell as Referral to [facility] in [place], for injections. We will plan to see patient back in clinic in approximately 6 months to assess her progress. The patient is agreeable to plan of care. They had the opportunity to ask questions, all of which were answered to their satisfaction. I reviewed this patient's history, exam, and imaging with Dr. oFrd He guided plan of care for this patient. The total cizg-cd-kipd time spent on this visit was greater than 30 minutes, with the majority (>50%) of the time spent in counseling, discussing pathology and management options, and coordination of care. David Power MD PGY-2, Department of neurosurgery [facility] Pager: [phone] Answers submitted by the patient for this visit: Consultation on 05/22/2025 11:15 AM with Nigel Queen MD Back Pain Questionnaire (Submitted on 05/15/2025) Chief Complaint: Back pain Chronicity: chronic Onset: more than 1 year ago Frequency: constantly Progression since onset: rapidly worsening Pain location: lumbar spine, sacro-iliac, thoracic spine Pain quality: aching, burning, cramping, shooting, stabbing Pain - numeric: 8/10 Pain is: worse during the day Aggravated by: bending, coughing, position, sitting, standing, stress, twisting Stiffness is present: in the morning, at night, all day leg pain: Yes numbness: Yes paresthesias: Yes tingling: Yes weakness: Yes [1] [2] [3] Cosigned by Nigel Recinos MD at 05/23/2025 12:12 PM EST Associated attestation - Nigel Recinos MD - 05/23/2025 12:12 PM EST I saw and evaluated the patient with the resident/fellow. I discussed the case with the resident/fellow and agree with the findings and plan as documented. documented in this encounter Plan of Treatment Upcoming Encounters Date Type Department Care Team (Late st Contact Info) Description 05/25/2025 11:30 AM EST Appointment [facility] Radiology [address] [place] [address] 05/25/2025 2:00 PM EST Appointment [facility] Pulmonary Function Testing [address] [place] [address] 05/25/2025 3:30 PM EST Appointment Cardiac Imaging [address] [place] [address] 05/31/2025 4:30 PM EST Appointment [facility] [address] [place] [address] 06/12/2025 2:30 PM EST Office Visit [facility] [place] [address] [place] [address] AuroraJuana yap, SPONGE FISHERMAN [address] [place] [address] 06/20/2025 10:30 AM EST Procedure Visit [facility] [address] [place] [address] Claire Davidson MD [address] [place] [address] 06/21/2025 2:00 PM EST Office Visit [facility] [address], [address] [place] [address] Claire Davidson MD [address] [place] [address] 07/17/2025 8:45 AM EST Clinical Support [facility] Trans[facility] [address] [place] [address] 07/17/2025 10:30 AM EST Office Visit [facility] [address] [facility] [address] [place] [address] Nj Johns MD [address] [facility] [address] [place] [address] Scheduled Orders Name Type Priority Associated Diagnoses Orde r Schedule MR Thoracic Spine wo IV Contrast Imaging Routine Lumbar radiculopathy Expected: 05/22/2025 (Approximate), Expires: 11/23/2026 Scheduled Referrals Name Type Priority Associated Diagnoses Orde r Schedule Ambulatory referral to Interventional Pain Outpatient Referral Routine Lumbar radiculopathy Expected: 05/22/2025 (Approximate), Expires: 11/19/2026 documented as of this encounter Results * XR Cervical Spine [...] and mild C7-T1 disc space narrowing. Moderate C7-J3qvjdy arthropathy. No subluxation between flexion and extensionradiographs. [...] on 05/22/2025 12:08 PM us Sivan Isaac SPONGE FISHERMAN, DNP IMG XR PROCEDURES Jennifer l Result [...] and mild C7-T1 disc space narrowing. Moderate C7-P8offiu arthropathy. No subluxation between flexion and extensionradiographs. [...] in this encounter Visit Diagnoses Diagnosis Lumbar radiculopathy- Primary Thoracic or lumbosacral neuritis or radiculitis, unspecified Cervical spondylosis with myelopathy Lumbar radiculopathy Thoracic or lumbosacral neuritis or [...] documented as of this encounter Care Teams Leather Sprayer Relationship Specialty Start Date End Date Trevor Rolon DO [address] [place] [address] PCP - General 11/22/20 Mc Grant DO [address] [facility] [address] [place] [address] Referring Physician Gastroenterology 02/21/24 El Agarwal APRN [address] [place] [address] Referring Physician Gastroenterology 03/21/25 documented as of this encounter
[2025-05-23 22:59] VITALS: PULSE 126; O2SAT 97
[2025-05-23 23:00] VITALS: BP 130/65; PULSE 132; O2SAT 98
--- NOTE | 2025-05-23 23:04 | CT_ITS ---
PROCEDURE INFORMATION: Exam: CT Abdomen And Pelvis With Contrast Exam date and time: 05/23/2025 11:53 PM Age: 54 years old Clinical indication: Abdominal pain; Additional info: Diffuse abd pain, liver PT TECHNIQUE: Imaging protocol: Computed tomography of the abdomen and pelvis with contrast. Radiation optimization: All CT scans at this facility use at least one of these dose optimization techniques: automated exposure control; mA and/or kV adjustment per patient size (includes targeted exams where dose is matched to clinical indication); or iterative reconstruction. Contrast material: ISOVUE; Contrast volume: 75 ml; Contrast route: IV; COMPARISON: No relevant prior studies available. FINDINGS: Lungs: There is bibasilar atelectasis, svbo-[id number]-uhsh-right. Liver: The liver has a nodular contour. No mass. Gallbladder and biliary ducts: The gallbladder is absent. There is no biliary ductal dilation. Pancreas: Normal. No ductal dilation. Spleen: The spleen is enlarged measuring 14 cm. There is a splenic cleft noted posteriorly inferiorly on the axial images. Several other smaller clefts are noted along the superior anterior aspect spleen best noted on sagittal reconstructions. 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 Adrenal glands: Normal. No mass. Kidneys and ureters: Normal. No hydronephrosis. Stomach and bowel: There is diffuse edematous wall thickening throughout the colon. Scattered left colon diverticula are noted. No bowel obstruction. Appendix: Not identified. Intraperitoneal space: There is mild ascites. There is mild diffuse mesenteric edema. Vasculature: These very mild calcific atherosclerotic disease. No aortic aneurysm. Lymph nodes: Unremarkable. No enlarged lymph nodes. Urinary bladder: Unremarkable as visualized. Reproductive: The uterus is absent. Bones/joints: There are fqxn-wy-feypwkkl degenerative changes of the spine. No acute fracture. Soft tissues: Unremarkable. IMPRESSION: 1. Nodular liver, splenomegaly, ascites and mesenteric edema consistent with hepatic cirrhosis. 2. Diffuse edematous wall thickening throughout the colon either representing colitis or portal colopathy. 3. Bibasilar atelectasis. 4. Other nonurgent findings as noted.
--- NOTE | 2025-05-23 23:04 | HMH.EDGENADL ---
Discharge Plan Disposition Patient Disposition: Xfer Short-Term Hosp Condition: Serious Prescriptions Prescriptions: No Action cyclobenzaprine 10 mg tablet PO fluconazole 100 mg tablet PO ropinirole 1 mg tablet PO insulin glargine [Lantus U-100 Insulin] 100 unit/mL solution SQ metoprolol succinate 50 mg tablet extended release 24 hr PO valacyclovir 1 gram tablet PO spironolactone 100 mg tablet PO (DME) FreeStyle Lite Strips Strip See Rx Instructions .ROUTE .MEDSUPPLY Qty: 10 Rx Instructions: As directed valacyclovir 500 mg tablet PO ondansetron 8 mg tablet,disintegrating PO potassium chloride 20 mEq tablet,ER particles/crystals PO pantoprazole 40 mg tablet,delayed release (DR/EC) PO simvastatin 20 mg tablet PO ferrous sulfate [FeroSul] 325 mg (65 mg iron) tablet PO buspirone 10 mg tablet PO promethazine 25 mg tablet PO buspirone 7.5 mg tablet PO bumetanide 1 mg tablet PO ergocalciferol (vitamin D2) 1,250 mcg (50,000 unit) capsule 1,250 mcg PO oxycodone 5 mg tablet PO insulin aspart U-100 100 unit/mL (3 mL) insulin pen SQ lactulose 10 gram/15 mL solution PO pregabalin 25 mg capsule PO diclofenac sodium 1 % gel topical desvenlafaxine succinate 50 mg tablet extended release 24 hr PO (DME) Dexcom G7 Sensor Device See Rx Instructions .ROUTE .MEDSUPPLY Qty: 1 Rx Instructions: As directed Qutenza 8 % kit topical Xifaxan 550 mg tablet PO (DME) insulin syringe-needle U-100 [Ultra-Fine Insulin Syringe] 1 mL 31 gauge x 15/64 syringe See Rx Instructions .ROUTE .MEDSUPPLY Qty: 10 Rx Instructions: As directed (DME) lancets [FreeStyle Lancets] 28 gauge misc See Rx Instructions .ROUTE .MEDSUPPLY Qty: 100 Rx Instructions: As directed potassium chloride 20 mEq tablet extended release PO Jardiance 25 mg tablet PO Jardiance 10 mg tablet PO Ozempic 1 mg/dose (4 mg/3 mL) pen injector SQ cefdinir 300 mg capsule 300 mg PO BID Qty: 20 0RF Referrals Follow up/Referrals: Provider,Referral, MD [Primary Care Provider, Medical] - See instructions Clinical Impressions Clinical Impression: Sepsis, Liver failure, Hyponatremia Instructions Patient Instructions: DI for Acute Abdominal Pain Print Language Print Language: Beninese Discharge ED Provider: Harini Brenner Adult HPI General Chief complaint: Abdominal Pain Stated complaint: severe abdominal pain Time Seen by Provider: 05/23/25 22:59 History of Present Illness HPI narrative: 54-year-old female with history of liver failure of unknown etiology, reportedly 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 Patient reports it has been progressive. She is warm to the touch but denies fevers. She is having nausea but no vomiting, she has had multiple episodes of diarrhea, denies bloody or melanotic diarrhea. She does take lactulose and states she intermittently misses doses. She states she has also missed her most recent dose of Bumex and spironolactone. Patient reports to me that her liver enzymes have continued to trend up and reportedly liver team is not sure why but they suspect potentially primary biliary cholangitis. She has never had a paracentesis. She states her abdomen feels slightly swollen but not significantly. She has no chest pain or difficulty breathing. She states the whites of her eyes are about as yellow as they typically are. She denies cough, congestion, sore throat. She denies headache or dizziness. She denies numbness, tingling, or weakness. Related Data Home Medications ?Medication ?Instructions ?Recorded ?Confirmed blood sugar diagnostic (FreeStyle #10 ea 05/02/25 05/02/25 Lite Strips) blood-glucose sensor (Dexcom G7 #1 ea 05/02/25 05/02/25 Sensor device) bumetanide 1 mg tablet mg PO 05/02/25 05/02/25 buspirone 10 mg tablet mg PO 05/02/25 05/02/25 buspirone 7.5 mg tablet mg PO 05/02/25 05/02/25 capsaicin-skin cleanser 8 % ea topical 05/02/25 05/02/25 topical kit (Qutenza) cyclobenzaprine 10 mg tablet mg PO 05/02/25 05/02/25 desvenlafaxine succinate 50 mg mg PO 05/02/25 05/02/25 tablet,extended release 24 hr diclofenac sodium 1 % topical gel topical 05/02/25 05/02/25 empagliflozin 10 mg tablet mg PO 05/02/25 05/02/25 (Jardiance) empagliflozin 25 mg tablet mg PO 05/02/25 05/02/25 (Jardiance) ergocalciferol (vitamin D2) 1,250 1,250 mcg PO 05/02/25 05/02/25 mcg (50,000 unit) capsule ferrous sulfate 325 mg (65 mg mg PO 05/02/25 05/02/25 iron) tablet (FeroSul) fluconazole 100 mg tablet mg PO 05/02/25 05/02/25 insulin aspart U-100 100 unit/mL SQ 05/02/25 05/02/25 (3 mL) subcutaneous pen insulin glargine 100 unit/mL unit SQ 05/02/25 05/02/25 subcutaneous solution (Lantus U-100 Insulin) insulin syringe-needle U-100 1 mL #10 ea 05/02/25 05/02/25 31 gauge x 15/64 (Ultra-Fine Insulin Syringe) lactulose 10 gram/15 mL oral PO 05/02/25 05/02/25 solution lancets 28 gauge (FreeStyle #100 ea 05/02/25 05/02/25 Lancets) metoprolol succinate 50 mg mg PO 05/02/25 05/02/25 tablet,extended release 24 hr ondansetron 8 mg disintegrating mg PO 05/02/25 05/02/25 tablet oxycodone 5 mg tablet mg PO 05/02/25 05/02/25 pantoprazole 40 mg tablet,delayed mg PO 05/02/25 05/02/25 release potassium chloride 20 mEq meq PO 05/02/25 05/02/25 tablet,extended release potassium chloride 20 mEq meq PO 05/02/25 05/02/25 tablet,extended release(part/cryst) pregabalin 25 mg capsule mg PO 05/02/25 05/02/25 promethazine 25 mg tablet mg PO 05/02/25 05/02/25 rifaximin 550 mg tablet (Xifaxan) mg PO 05/02/25 05/02/25 ropinirole 1 mg tablet mg PO 05/02/25 05/02/25 semaglutide 1 mg/dose (4 mg/3 mL) mg SQ 05/02/25 05/02/25 subcutaneous pen injector (Ozempic) simvastatin 20 mg tablet mg PO 05/02/25 05/02/25 spironolactone 100 mg tablet mg PO 05/02/25 05/02/25 valacyclovir 1 gram tablet mg PO 05/02/25 05/02/25 valacyclovir 500 mg tablet mg PO 05/02/25 05/02/25 Previous Rx's ?Medication ?Instructions ?Recorded cefdinir 300 mg capsule 300 mg PO BID #20 caps 05/02/25 Allergies Allergy/AdvReac Type Severity Reaction Status Date / Time povidone-iodine (From Allergy Intermediate Rash Verified 05/02/25 19:17 Betadine) Sulfa (Sulfonamide Allergy Intermediate Rash,itchin Verified 05/02/25 19:17 Antibiotics) g,burning vortioxetine (From Allergy Mild Rash Verified 05/02/25 19:17 Trintellix) surgery glue Allergy Mild Rash Uncoded 05/02/25 19:17 [facility] Disclaimer: The information contained in this section may have been updated after the patient was seen, as this information can be updated by other users. Social History (Updated 05/03/25 @ 16:25 by BLAISE Baeza) Smoking Status: Never smoker alcohol intake: never current occupational status: unemployed Travel in the last 8 weeks?: None Do you have any abdominal pain?: Yes ROS Obtained: Yes Systems reviewed as appropriate & no additional complaints except as documented Per HPI Physical Exam General General appearance: alert and in no apparent distress Head Head exam: atraumatic and normocephalic Eye Eye exam: Present PERRL, EOMI and jaundice (Mild to moderate) ENT ENT exam: Present mucous membranes moist Neck Neck exam: Present normal inspection and full ROM Chest Chest inspection: Present symmetric chest wall rise; Absent tenderness Respiratory Respiratory exam: Present normal lung sounds bilaterally and other (Mild tachypnea); Absent respiratory distress, wheezes or stridor Cardiovascular Cardiovascular exam: Present normal rhythm and tachycardia Abdominal Exam Abdominal exam: Present soft and tenderness (Diffuse moderate); Absent distention, guarding or rebound Extremities Exam Extremities exam: Present full ROM and normal capillary refill; Absent edema Neurological Exam Neurological exam: Present alert and oriented X3; Absent motor sensory deficit Psychiatric Psychiatric exam: Present normal affect and normal mood Skin Skin exam: Present warm (Very warm to the touch) and dry Medical Decision Making Medical Records Medical records reviewed: Yes I reviewed the patient's medical records. Screening: Per USPSTF and CDC recommendations, given the prevalence of disease in our region, it is our hospital?s policy to screen for HIV and viral Hepatitis for all patients aged 18 and over and those with ongoing risk factors. MR Comment: Most recent liver enzymes in our system were AST 86, ALT 73, alk phos 267, kidney function BUN 33, creatinine 1.4, bilirubin 2.4. These labs were from early April. Most recent note in our system is from 05/02/2025 for patient was seen at [facility] and found to have pharyngitis. That note reports that her most recent MELD score at was 20. Yohan Inquiry Pt receiving controlled substance: No Vital Signs: 05/23/25 22:59 05/23/25 23:00 05/23/25 23:00 Temperature Temperature Source Pulse Rate 126 H 132 H Pulse Rate [Left Radial] Respiratory Rate Blood Pressure 130/65 Blood Pressure [Right Arm] Blood Pressure Mean 91 Blood Pressure Mean [Right Arm] Blood Pressure Source [Right Arm] Blood Pressure Position [Right Arm] 02 Sat by Pulse Oximetry 97 98 Oxygen Delivery Method Room Air Room Air 05/23/25 23:07 05/23/25 23:15 05/23/25 23:30 Temperature 98.8 F Temperature Source Oral Pulse Rate 130 H 130 H Pulse Rate [Left Radial] 133 H Respiratory Rate 28 H 14 18 Blood Pressure Blood Pressure [Right Arm] 130/65 Blood Pressure Mean Blood Pressure Mean [Right Arm] 86 Blood Pressure Source [Right Arm] Automatic Cuff Blood Pressure Position [Right Arm] Supine 02 Sat by Pulse Oximetry 99 99 96 Oxygen Delivery Method Room Air Room Air Room Air 05/24/25 00:00 05/24/25 00:00 Temperature Temperature Source Pulse Rate Pulse Rate [Left Radial] Respiratory Rate 21 Blood Pressure 136/73 Blood Pressure [Right Arm] Blood Pressure Mean 91 Blood Pressure Mean [Right Arm] Blood Pressure Source [Right Arm] Blood Pressure Position [Right Arm] 02 Sat by Pulse Oximetry Oxygen Delivery Method Lab Data Lab Results 05/23/25 22:04: Troponin I 0.02, HCV Ab JIMMIE w/Rflx PCR Qn Negative, HIV Ag/Ab Combo Qual Negative 05/23/25 23:04: WBC 18.1 H, RBC 3.73 L, Hgb 13.3, Hct 38.3, MCV 102.7 H, MCH 35.7 H, MCHC 34.7, RDW 16.2, Plt Count 87 L, MPV 9.8, Neut % (Auto) 88.2 H, Lymph % (Auto) 4.6 L, [place] % (Auto) 5.3, Eos % (Auto) 0.8, Baso % (Auto) 0.4, Neut # (Auto) 15.9 H, Lymph # (Auto) 0.8, [place] # (Auto) 1.0, Eos # (Auto) 0.1, Baso # (Auto) 0.1, PT 13.5 H, INR 1.24 H, APTT 31.8 H, Sodium 124 L, Potassium 5.0, Chloride 97 L, Carbon Dioxide 20 L, Anion Gap 12.0, BUN 21 H, Creatinine 1.00, Estimated Creat Clear 84, Estimated GFR 58 L, Est GFR ( Amer) 70, Glucose 184 H, Lactate 3.6 H, Calcium 9.3, Total Bilirubin 7.5 H, AST 114 H, ALT 97 H, Alkaline Phosphatase 205 H, Total Protein 7.9 D, Albumin 3.6, Globulin 4.3 H, Albumin/Globulin Ratio 0.8 L, Lipase 159 05/23/25 23:47: Urine Color Armida, Urine Appearance Clear, Urine pH 6.0, Ur Specific Shoshoni 1.020, Urine Protein Negative, Urine Glucose (UA) 3+, Urine Ketones Negative, Urine Blood Negative, Urine Nitrate Negative, Urine Bilirubin Negative, Urine Urobilinogen 0.2, Ur Leukocyte Esterase Negative, Urine RBC Occasional, Urine WBC Occasional, Ur Squamous Epith Cells 5-10, Urine Bacteria 1+ 05/23/25 23:04 05/23/25 23:04 Orders (Tests/Meds): ED MEDICATIONS Generic Name Dose Route Start Last Admin Trade Name Freq PRN Reason Stop Dose Admin Vancomycin/PEG/NADA/Lysine/Water 1.75 gm in 350 mls @ 175 mls/hr 05/23/25 23:45 05/24/25 00:14 Vancomycin 1.75gm/350ml (Peg) Premix IV 05/24/25 01:44 175 mls/hr ONCE ONE Administration Miscellaneous 1 each 05/23/25 23:30 05/24/25 00:53 Vancomycin Consult Request NOTAPPLIC 06/22/25 23:29 1 each CONSULT PHARMACY [facility]Y Administration Discontinued Medications Generic Name Dose Route Start Last Admin Trade Name Lavelle PRN Reason Stop Dose Admin Lactated Ringer's 1,000 mls @ 999 mls/hr 05/23/25 23:14 05/23/25 23:22 Lactated Ringer's 1000 Ml Bag IV 05/24/25 00:14 999 mls/hr .Q1H1M ONE Administration Piperacillin Sod/Tazobactam 100 mls @ 200 mls/hr 05/23/25 23:29 05/23/25 23:58 Sod 4.5 gm/ Sodium Chloride IV 05/23/25 23:58 200 mls/hr ONCE ONE Administration Iopamidol 75 ml 05/23/25 23:54 05/23/25 23:54 Iopamidol-370 (76%);100ml Bottle IV 05/23/25 23:55 75 ml ONCE ONE Administration Morphine Sulfate 4 mg 05/23/25 23:04 05/23/25 23:16 Morphine 4mg/Ml Syringe IV 05/23/25 23:05 4 mg ONCE ONE Administration Ondansetron HCl 4 mg 05/23/25 23:04 05/23/25 23:16 Ondansetron 4mg/2ml Vial IV 05/23/25 23:05 4 mg ONCE ONE Administration Sodium Chloride 10 ml 05/23/25 23:54 05/23/25 23:54 Sodium Chloride 0.9% 10ml Syr (Rad Only) IV 05/23/25 23:55 10 ml ONCE ONE Administration ORDERS Category Date Time Status CT abdomen pelvis w con Stat Cat Scan 05/23/25 23:04 Completed CXR --portable [XR chest portable] Stat Exams 05/23/25 23:14 Completed POCUS Point of Care (ER Only) Stat Exams 05/23/25 23:04 Completed Activated Partial Thrombo Time Stat Lab 05/23/25 23:04 Completed Complete Blood Count Auto Diff Stat Lab 05/23/25 23:04 Completed Comprehensive Metabolic Panel Stat Lab 05/23/25 23:04 Completed Full Resp Panel w/COVID ([facility]) Routine Lab 05/23/25 23:29 Received HIV Combo Stat Lab 05/23/25 22:04 Completed Hepatitis C Ab Qual. W/ RFX Stat Lab 05/23/25 22:04 Completed Lactic Acid Stat Lab 05/23/25 23:04 Completed Lipase Stat Lab 05/23/25 23:04 Completed Prothrombin Time INR Stat Lab 05/23/25 23:04 Completed Trop I [Troponin I] Stat Lab 05/23/25 22:04 Completed Troponin I Q3H Lab 05/24/25 02:15 Ordered Troponin I Q3H Lab 05/24/25 05:15 Ordered Urinalysis and Microscopic Stat Lab 05/23/25 23:47 Completed Blood Culture Stat Micro 05/23/25 22:04 Received ECG Request Stat Y 05/23/25 23:14 Ordered Medical Decision Narrative: In summary, this 54-year-old female with comorbidities described in the HPI presents to the emergency department today with diffuse abdominal pain, nausea, few episodes of diarrhea though she does take lactulose. On initial evaluation patient is tachycardic and warm to the touch but hemodynamically stable otherwise and afebrile with oral temperature. She is mildly tachypneic but lungs are clear, saturating 100% on room air, no respiratory distress. Patient has mild to moderate diffuse abdominal tenderness with no rebound or guarding, no focal tenderness, no peritonitic findings, abdomen is mildly obese but no obvious fluid wave, patient has mild jaundice throughout. Alert and oriented. GCS 15 with no neurologic deficits. Differential diagnosis includes but is not limited to Sepsis, intra-abdominal infection, enteritis, colitis, ascites, SBP, viral infection, I considered the possibility of atypical presentation of ACS, I am concerned that patient is going to meet sepsis criteria since she is both tachycardic and tachypneic as well as very warm to the touch though she is technically afebrile on arrival. She is therefore receiving a broad workup including blood cultures, urine studies, and chest x-ray as well as respiratory panel. Additionally I considered the possibility of pancreatitis, cholangitis, among others. Based on these concerns, I ordered hematologic and serum labs, cardiac workup, urinalysis, blood cultures, patient's symptoms are being managed with morphine and Zofran, she is receiving 1 L of IV fluids, while I am concerned for sepsis since she is typically volume overloaded and takes diuretics which she has missed doses of this week, I do not want to volume overload her so she is not going to receive a full 30 mL/kg bolus. I performed [id number] ultrasound at bedside to evaluate for possible fluid pocket for paracentesis. No pocket was identified. See procedure note for details. CT abdomen pelvis pending. ECG personally interpreted demonstrates sinus tachycardia, rate 131, normal axis, normal IL and QTc, no STEMI. Labs personally reviewed demonstrate leukocytosis WBC 18.1, no anemia, platelets 87 representing thrombocytopenia. PT/INR mildly elevated with INR 1.24, she is significantly hyponatremic sodium 124, BUN and creatinine are improved compared to April today creatinine is 1.0. Transaminitis is worse and she has significant hyperbilirubinemia with bilirubin 7.5. Lipase normal at 159 reassuring against pancreatitis. Patient showed me lab results that she had written down from from 05/18 which demonstrated a WBC of 6, hemoglobin 13. She reports her last MELD was 20, today her MELD is 26 which is worse. Patient also has a lactic acidosis lactic 3.6. She is already receiving IV fluids and broad-spectrum antibiotics are being administered since she has a significant leukocytosis in the setting of tachycardia, tachypnea, and suspected abdominal infection. Labs from on 05/18 demonstrate sodium of 132, AST 97, ALT 65, alk phos 233, bilirubin 2.2. Her labs today demonstrate a significant change from this. Platelets on 05/18 were 78. Today they are slightly improved at 87. UA negative for findings of infection. XR personally interpreted demonstrates no acute intrathoracic abnormality, see radiology read for final interpretation. The atelectasis commented on at the left lower base does not correlate clinically. CT imaging personally interpreted demonstrate no obvious acute surgical pathology, no bowel obstruction, she does have scant ascites but it appears to all be posterior which is consistent with the findings on my ccile-uh-orhh ultrasound. See radiology read for final interpretation which comments on diffuse intestinal thickening, possible portal colopathy. On reassessment patient's pain is improved. Her heart rate is improving with the administration of IV fluids. She has only received approximately 300 mL of the initial 1 L I ordered so the rest of it is being pressure bagged to continue treating her tachycardia. I reach out to because the patient's MELD score is worse indicating worsening liver failure in the setting of sepsis. I spoke with Dr. Thomas in the transfer center who after discussing this case graciously accepted the patient for ER to ER transfer to [facility]. Patient is agreeable to this. She will go by ALS ambulance to continue IV fluids and antibiotics. Patient was reassessed immediately prior to transfer and remains GCS 15, tachycardia improving, airway intact, otherwise hemodynamically stable and afebrile. She was transferred in serious but stable condition. Procedures Miscellaneous Procedure Procedure Performed: Limited abdominal ultrasound Indication: Diffuse abdominal pain, liver failure Performed by Harini Brenner MD Views: Left lower quadrant, right lower quadrant Interpretation: Scant free fluid (ascites) appreciated in the abdomen. There was no pocket deep enough to safely perform paracentesis. Impression: Small ascites, not deep enough to perform paracentesis Images were saved in the permanent archive. The study was technically adequate. CPT 25650?26 (limited abdominal) This study was performed by me, and I personally interpreted all images/videos. Based on my clinical judgment, these images were adequate and did not necessitate further imaging. Critical Care Critical Care Time Critical Care Time: Yes Attestation: On 05/23/25, the high probability of a clinically significant, sudden or life threatening deterioration of the following system(s) required my full and direct attention, intervention and personal management. The time I documented below is in addition to time spent performing reported procedures but includes the following listed in this critical care notation. Total Time Total Critical Care Time: 55
[2025-05-23 23:07] VITALS: BP 130/65; PULSE 133; RESP 28; TEMP 37.1; O2SAT 99; BMI 31.6
--- NOTE | 2025-05-23 23:14 | XR_ITS ---
PROCEDURE INFORMATION: Exam: XR Chest Exam date and time: 05/23/2025 11:57 PM Age: 54 years old Clinical indication: Other: Sepsis; Additional info: Sepsis workup TECHNIQUE: Imaging protocol: Radiologic exam of the chest. Views: 1 view. COMPARISON: CT ABDOMEN PELVIS W CON 05/23/2025 11:53 PM FINDINGS: Lungs: Patchy airspace disease at the left lung base consistent with atelectasis as noted on the CT exam. The lungs are otherwise clear. Pleural spaces: Unremarkable. No pleural effusion. No pneumothorax. Heart/Mediastinum: Unremarkable. No cardiomegaly. Vasculature: Unremarkable. Bones/joints: Unremarkable. IMPRESSION: Left basilar atelectasis.
[2025-05-23 23:15] VITALS: PULSE 130; RESP 14; O2SAT 99
[2025-05-23 23:15] LABS: Hematocrit 38.3 % (37.0-47.0); Hemoglobin 13.3 g/dL (12.2-16.2); Immature Granulocytes % 0.7 %; Mean Corpuscular HGB Conc 34.7 g/dL (31.8-35.4); Mean Corpuscular Hemoglobin 35.7 pg (27.0-31.2); Mean Corpuscular Volume 102.7 fl (81-99); Nucleated Red Blood Cells % 0 %; Platelet Count 87 K/mm3 (142-424); Red Blood Count 3.73 M/mm3 (4.20-5.40); Red Cell Distribution Width-SD 61.5 fL; White Blood Count 18.1 K/mm3 (4.8-10.8)
[2025-05-23] MEDS: MORPHINE 4MG/ML SYRINGE 4 MG IV (23:16)
[2025-05-23] MEDS: ONDANSETRON 4MG/2ML VIAL 4 MG IV (23:16)
[2025-05-23] MEDS: LACTATED RINGERS 1000ML 1,000 ML 999 ML IV (23:22)
[2025-05-23 23:24] LABS: Alanine Aminotransferase 97 U/L (12-78); Albumin Level 3.6 g/dl (3.5-5.0); Albumin/Globulin Ratio 0.8 (1.1-1.8); Alkaline Phosphatase 205 U/L (38-126); Anion Gap 12.0 mEq/L (5-15); Aspartate Amino Transferase 114 U/L (14-36); Bilirubin,Total 7.5 mg/dl (0.2-1.3); Blood Urea Nitrogen 21 mg/dl (7-17); Calcium 9.3 mg/dl (8.4-10.2); Carbon Dioxide 20 mmol/L (22.0-30.0); Chloride 97 mmol/L (98-107); Creatinine Clearance Estimated 84 mL/min (50-200); Creatinine,Serum 1.00 mg/dl (0.52-1.04); Estimated Glomerular Filt Rate 58 ml/min (>60); GFR (African American) 70 ML/MIN (>60); Globulin 4.3 g/dL (1.3-3.2); Glucose 184 mg/dl (74-100); Lipase 159 U/L (23-300); Potassium 5.0 mmoL/L (3.5-5.1); Sodium 124 mmol/L (136-145); Total Protein,Serum 7.9 g/dl (6.3-8.2)
--- OUTSIDE RECORDS SUMMARY | 2025-05-23 23:25 | XMS_ITS | Encounter Summary ---
Author Organization [facility] Address [address] [place] [address] Care Team Providers Care Shipping Services Sales Representative Name Role Phone Trevor Rolon DO Primary Care Provider [phone] Mc Grant DO Unavailable [phone] El Agarwal [employer] Unavailable [phone] Encounter Details Date Type Department Care Team (Late Contact Info) Description 11/15/2024 Orders Only External Location [address] [place] [address] Provider, External Social History Tobacco Use Types [...] Description 05/25/2025 11:30 AM EST Appointment [facility] [address] [place] [address] 05/25/2025 2:00 PM EST Appointment [facility] [address] [place] [address] 05/25/2025 3:30 PM EST Appointment Cardiac Imaging [address] [place] [address] 05/31/2025 4:30 PM EST Appointment [facility] [address] [place] [address] 06/12/2025 2:30 PM EST Office Visit [facility] [address], [address] [place] [address] Juana Gale, [employer] [address] [place] [address] 06/20/2025 10:30 AM EST Procedure Visit [facility] [address] [place] [address] Claire Davidson MD [address] [facility] [place] [address] 06/21/2025 2:00 PM EST Office Visit [facility] [address], [address] [place] [address] Claire Davidson MD [address] [place] [address] 07/17/2025 8:45 AM EST Clinical Support [facility] [address] [facility] [address] [place] [id number] 07/17/2025 10:30 AM EST Office Visit [facility] [address] [place] [phone] Nj Johns MD [address] [place] [address] documented as of this encounter Procedures Procedure [...] documented as of this encounter Care Teams Shipping Services Sales Representative Relationship Specialty Start Date End Date Trevor Rolon DO [address] [facility] [address] [place] [address] PCP - General 11/22/20 Mc Grant DO [address] [facility] [address] [place] [address] Referring Physician Gastroenterology 02/21/24 El Agarwal APRN [address] [place] [address] Referring Physician Gastroenterology 03/21/25 documented as of this encounter
--- OUTSIDE RECORDS SUMMARY | 2025-05-23 23:25 | XMS_ITS | Encounter Summary ---
Author Organization [facility] Address [address] [place] [address] Care Team Providers Care Power Bender Operator Name Role Phone Trevor Rolon DO Primary Care Provider Mc Grant DO Unavailable [phone] El Agarwal PHYSICAL INTEGRATION PRACTITIONER Unavailable [phone] Encounter Details Date Type Department Care Team (Late st Contact Info) Description 01/06/2023 Orders Only External Location [address] [place] [address] Provider, External Social History Tobacco Use Types [...] Department Care Team (Late Contact Info) Description 05/25/2025 11:30 AM EST Appointment P[facility] G Radiology [address] [place] [address] 05/25/2025 2:00 PM EST Appointment P[facility] H Pulmonary Function Testing [address] [place] [address] 05/25/2025 3:30 PM EST Appointment Cardiac Imaging [address] [place] [address] 05/31/2025 4:30 PM EST Appointment P[facility] Breast [facility] Breast Care [facility] Amandeep Val[address] Building [address] [place] [address] 06/12/2025 2:30 PM EST Office Visit [facility] [place] [address] [facility], [address] [place] [address] Juana Gale APRN [address] [place] [address] 06/20/2025 10:30 AM EST Procedure Visit [facility] [address], 1st [place] [address] Claire Davidson MD [address] [place] [address] 06/21/2025 2:00 PM EST Office Visit [facility] [address] [facility], [address] [place] [address] Claire Davidson MD [address] [place] [address] 07/17/2025 8:45 AM EST Clinical Support [facility] Trans[facility] Center [address] [place] [address] 07/17/2025 10:30 AM EST Office Visit [facility] [address] [place] [address] Nj Johns MD [address] [place] [address] documented as of this encounter Procedures Procedure [...] documented as of this encounter Care Teams Power Bender Operator Relationship Specialty Start Date End Date Trevor Rolon DO [address] [facility] 201 [place] [address] PCP - General 11/22/20 Mc Grant DO [address] [facility] [address] [place] [address] Referring Physician Gastroenterology 02/21/24 El Agarwal APRN [address] [place] [address] Referring Physician Gastroenterology 03/21/25 documented as of this encounter
--- OUTSIDE RECORDS SUMMARY | 2025-05-23 23:25 | XMS_ITS | Encounter Summary ---
Author Organization [facility] Address [address] [place] [address] Care Team Providers Care Skiagrapher Name Role Phone Trevor Rolon DO Primary Care Provider [phone] Mc Grant DO Unavailable [phone] El Agarwal COACH TOUR DRIVER Unavailable [phone] Reason for Referral * Consultation (Routine) - Authorized Specialty Diagnoses / Procedures Referred By Truong bella Referred To Contact Gastroenterology Diagnoses GOOD (nonalcoholic steatohepatitis) Laquita Corral PA [address] [place] [address] Phone: tel: fax: Referral ID Status Reason Start Date Expiration Date Visits Requested Visits Authorized [id number] Authorized Specialty Services Required 01/27/2024 07/28/2025 1 1 Encounter Details Date Type Department Care Team (Late st Contact Info) Description 01/27/2024 [facility] [address] [place] [address] Laquita Corral PA [address] [place] [address] GOOD (nonalcoholic steatohepatitis) (Primary Dx) [...] EST Appointment [facility] Radiology [address] [place] [address] 05/25/2025 2:00 PM EST Appointment LO[facility] Ast[facility] Pulmonary Function Testing [address] [place] [address] 05/25/2025 3:30 PM EST Appointment Cardiac Imaging [address] [place] [address] 05/31/2025 4:30 PM EST Appointment [facility] [address] Building [address] [place] [address] 06/12/2025 2:30 PM EST Office Visit [facility] [place] [address] [facility], [address] [place] [address] Juana Gale APRN [address] [place] [address] 06/20/2025 10:30 AM EST Procedure Visit [place] [facility] [address], 1st [place] [address] Claire Davidson MD [address] [place] [address] 06/21/2025 2:00 PM EST [facility] [address] [facility], [address] [place] [address] Claire Davidson MD [address] [place] [address] 07/17/2025 8:45 AM EST Clinical Support [facility] Transplant [place] [address] [place] [address] 07/17/2025 10:30 AM EST Office Visit [facility] [place] [address] [place] [address] Nj Johns MD [address] [place] [address] Scheduled Referrals Name Type Priority [...] documented as of this encounter Care Teams Skiagrapher Relationship Specialty Start Date End Date Trevor Rolon DO [address] [facility] [address] [place] [address] PCP - General 11/22/20 Mc Grant DO [address] [place] [address] [place] [address] Referring Physician Gastroenterology 02/21/24 El Agarwal APRN [address] [place], [place] [address] Referring Physician Gastroenterology 03/21/25 documented as of this encounter
--- OUTSIDE RECORDS SUMMARY | 2025-05-23 23:25 | XMS_ITS | Encounter Summary ---
Author Organization [facility] Address [address] [place] [address] Care Team Providers Care Shipper Name Role Phone Trevor Rolon DO Primary Care Provider [phone] Mc Grant DO Unavailable [phone] El Agarwal CLINICAL PSYCHOLOGIST PRIVATE PRACTICE Unavailable [phone] Encounter Details Date Type Department Care Team (Late Contact Info) Description 11/15/2024 Orders Only External Location [address] [place] [address] Provider, External Social History Tobacco Use Types [...] EST Appointment [facility] G Radiology [address] [place] [address] 05/25/2025 2:00 PM EST Appointment [facility] Ast[facility] Pulmonary Function Testing [address] [place] [address] 05/25/2025 3:30 PM EST Appointment Cardiac Imaging [address] [place] [address] 05/31/2025 4:30 PM EST Appointment [facility] [address] [place] [address] 06/12/2025 2:30 PM EST Office Visit [facility] [place] [address] [facility], [address] [place] [address] uJana Gale, CLINICAL PSYCHOLOGIST PRIVATE PRACTICE [address] [place] [address] 06/20/2025 10:30 AM EST Procedure Visit [facility] [address], 1st [place] [address] Claire Davidson MD [address] [facility]01 [place] [address] 06/21/2025 2:00 PM EST Office [facility] [address] [facility], [address] [place] [address] Claire Davidson MD [address] [place] [address] 07/17/2025 8:45 AM EST Clinical Support [facility] Transplant Center [address] [facility] [address] [place] [address] 07/17/2025 10:30 AM EST Office Visit [facility] Transplant Center [address] [place] [address] Nj Johns MD [address] [place] [address] documented as of this encounter [...] documented as of this encounter Care Teams Shipper Relationship Specialty Start Date End Date Trevor Rolon DO [address] [facility] 201 [place] [address] PCP - General 11/22/20 Mc Grant DO [address] [facility] 201 [place] [address] Referring Physician Gastroenterology 02/21/24 El Agarwal APRN [address] [place] [address] Referring Physician Gastroenterology 03/21/25 documented as of this encounter
--- OUTSIDE RECORDS SUMMARY | 2025-05-23 23:25 | XMS_ITS | Encounter Summary ---
Author Organization [facility] Address [address] [place] [address] Care Team Providers Care Byproducts Maker Name Role Phone Trevor Rolon DO Primary Care Provider [phone] Mc Grant DO Unavailable [phone] El Agarwal COUNTY EXTENSION AGENT Unavailable [phone] Encounter Details Date Type Department Care Team (Late st Contact Info) Description 01/06/2023 Orders Only External Location [address] [place] [address] Provider, External Social History Tobacco Use Types [...] EST Appointment [facility] G Radiology [address] [place] [address] 05/25/2025 2:00 PM EST Appointment PAV H Pulmonary Function Testing [address] [place] [address] 05/25/2025 3:30 PM EST Appointment Cardiac Imaging [address] [place] [address] 05/31/2025 4:30 PM EST Appointment PAV Breast [facility] Breast Care [facility] [address] Building [address] [place] [address] 06/12/2025 2:30 PM EST Office Visit [facility] [place] [address] [facility] [place], [address] [place] [address] Juana Gale APRN [address] [place] [address] 06/20/2025 10:30 AM EST Procedure Visit [facility] [address], 1st [place] [address] Claire Davidson MD [address] [place] [address] 06/21/2025 2:00 PM EST Office Visit [facility] [address] [facility] [place] [place] [address] Claire Davidson MD [address] [place] [address] 07/17/2025 8:45 AM EST Clinical Support [facility] Transplant Center [address] [place] [address] 07/17/2025 10:30 AM EST Office [facility] Trans[facility] [address] [place] [address] Nj Johns MD [address] [place] [address] documented as of this encounter Procedures Procedure [...] documented as of this encounter Care Teams Byproducts Maker Relationship Specialty Start Date End Date Trevor Rolon DO [address] [facility] 201 [place] [address] PCP - General 11/22/20 Mc Grant DO [address] [facility] 201 [place] [address] Referring Physician Gastroenterology 02/21/24 El Agarwal APRN [address] [place] [address] Referring Physician Gastroenterology 03/21/25 documented as of this encounter
--- OUTSIDE RECORDS SUMMARY | 2025-05-23 23:25 | XMS_ITS | Encounter Summary ---
Author Organization [facility] Address [address] [place] [address] Care Team Providers Care Collection Coordinator Name Role Phone Trevor Rolon DO Primary Care Provider [phone] Mc Grant DO Unavailable [phone] El Agarwal PARKING WORKER Unavailable [phone] Encounter Details Date Type Department Care Team (Late Contact Info) Description 11/15/2024 Orders Only External Location [address] [place] [address] Provider, External Social History Tobacco Use Types [...] EST Appointment [facility] G Radiology [address] [place] [address] 05/25/2025 2:00 PM EST Appointment [facility] Pulmonary Function Testing [address] [place] [address] 05/25/2025 3:30 PM EST Appointment Cardiac Imaging [address] [place] [address] 05/31/2025 4:30 PM EST Appointment [facility] Breast [facility] [address] Building 800 [place] [address] 06/12/2025 2:30 PM EST Office Visit [facility] [place] [address] [facility], [address] [place] [address] Juana Gale, PARKING WORKER [address] [place] [address] 06/20/2025 10:30 AM EST Procedure Visit [facility] [address], 1st [place] [address] Claire Davidson MD [address] [facility]01 [place] [address] 06/21/2025 2:00 PM EST Office [facility] [address] [facility], [address] [place] [address] Claire Davidson MD [address] [place] [address] 07/17/2025 8:45 AM EST Clinical Support [facility] Transplant Center [address] [facility] [address] [place] [address] 07/17/2025 10:30 AM EST Office Visit [facility] [address] [place] [address] Nj Johns MD [address] [place] [address] documented as of this encounter Procedures Procedure [...] documented as of this encounter Care Teams Collection Coordinator Relationship Specialty Start Date End Date Trevor Rolon DO [address] [facility] 201 [place], [place] [address] PCP - General 11/22/20 Mc Grant DO [address] [facility] 201 [place] [address] Referring Physician Gastroenterology 02/21/24 El Agarwal APRN [address] [place] [address] Referring Physician Gastroenterology 03/21/25 documented as of this encounter
--- OUTSIDE RECORDS SUMMARY | 2025-05-23 23:25 | XMS_ITS | Encounter Summary ---
Author Organization [facility] Address [address] [place] [address] Care Team Providers Care Information Technology Data Analyst Name Role Phone Trevor Rolon DO Primary Care Provider Mc Grant DO Unavailable [phone] El Agarwal ROLL SCALE WORKER Unavailable [phone] Encounter Details Date Type Department Care Team (Late st Contact Info) Description 03/01/2023 Orders Only External Location [address] [place] [address] Provider, External Social History Tobacco Use Types [...] EST Appointment [facility] G Radiology [address] [place] [address] 05/25/2025 2:00 PM EST Appointment PAV H Pulmonary Function Testing [address] [place] [address] 05/25/2025 3:30 PM EST Appointment Cardiac Imaging [address] [place] [address] 05/31/2025 4:30 PM EST Appointment P[facility] Breast [facility] [address] Building [address] [place] [address] 06/12/2025 2:30 PM EST Office Visit [facility] [place] [address] [facility], [address] [place] [address] Juana Gale APRN [address] [place] [address] 06/20/2025 10:30 AM EST Procedure Visit [facility] [address], 1st [place] [address] Claire Davidson MD [address] [place] [address] 06/21/2025 2:00 PM EST Office Visit [facility] [address] [facility], [address] [place] [address] Claire Davidson MD [address] [place] [address] 07/17/2025 8:45 AM EST Clinical Support [facility] Trans[facility] [address] [place] [address] 07/17/2025 10:30 AM EST Office Visit [facility] [address] [place] [address] Nj Johns MD [address] [place] [address] documented as of this encounter Procedures Procedure [...] documented as of this encounter Care Teams Information Technology Data Analyst Relationship Specialty Start Date End Date Trevor Rolon DO [address] [facility] [address] 201 [place] [address] PCP - General 11/22/20 Mc Grant DO [address] [facility] 201 [place] [address] Referring Physician Gastroenterology 02/21/24 El Agarwal APRN [address] [place] [address] Referring Physician Gastroenterology 03/21/25 documented as of this encounter
--- OUTSIDE RECORDS SUMMARY | 2025-05-23 23:25 | XMS_ITS | Encounter Summary ---
Author Organization [facility] Address [address] [place] [address] Care Team Providers Care Bitumen Plant Operator Name Role Phone Trevor Rolon DO Primary Care Provider [phone] Mc Grant DO Unavailable [phone] El Agarwal CALL CENTER RECEPTIONIST Unavailable [phone] Encounter Details Date Type Department Care Team (Late st Contact Info) Description 02/28/2025 [facility] [address] [place] [address] Laquita Corral PA [address] [place] [address] Social History Tobacco Use Types Packs/Day Years [...] EST Appointment [facility] Radiology [address] [place] [address] 05/25/2025 2:00 PM EST Appointment [facility] Pulmonary Function Testing [address] [place] [address] 05/25/2025 3:30 PM EST Appointment Cardiac Imaging [address] [place] [address] 05/31/2025 4:30 PM EST Appointment [facility] [address] [facility] 800 [place] [address] 06/12/2025 2:30 PM EST Office Visit [facility] [place] [address] [facility], [address] [place] [address] Juana Gale, CALL CENTER RECEPTIONIST [address] [place] [address] 06/20/2025 10:30 AM EST Procedure Visit [facility] [address], 1st [place] [address] Claire Davidson MD [address] [place] [address] 06/21/2025 2:00 PM EST Office Visit [facility] [place] [facility] [address] [facility], [address] [place] [address] Claire Davidson MD [address] [place] [address] 07/17/2025 8:45 AM EST Clinical Support [facility] Transplant Center [address] [facility] [address] [place] [address] 07/17/2025 10:30 AM EST Office Visit [facility] Trans[facility] [address] [place] [address] Nj Johns MD [address] [place] [address] documented as of this encounter Visit Diagnoses [...] documented as of this encounter Care Teams Bitumen Plant Operator Relationship Specialty Start Date End Date Trevor Rolon DO [address] [facility] 201 [place] [address] PCP - General 11/22/20 Mc Grant DO [address] [facility] 201 [place] [address] Referring Physician Gastroenterology 02/21/24 El Agarwal APRN [address] [place] [address] Referring Physician Gastroenterology 03/21/25 documented as of this encounter
--- OUTSIDE RECORDS SUMMARY | 2025-05-23 23:25 | XMS_ITS | Encounter Summary ---
Author Organization [facility] Address [address] [place] [address] Care Team Providers Care Water Treatment Plant Engineer Name Role Phone Trevor Rooln DO Primary Care Provider [phone] Mc Grant DO Unavailable [phone] El Agarwal AIRPORT ELECTRICIAN Unavailable [phone] Encounter Details Date Type Department Care Team (Late st Contact Info) Description 08/23/2022 Orders Only External Location [address] [place] [address] Provider, External Social History Tobacco Use Types [...] EST Appointment [facility] Rad[facility] [address] [place] [address] 05/25/2025 2:00 PM EST Appointment [facility] Pulmonary Function Testing [address] [place] [address] 05/25/2025 3:30 PM EST Appointment Cardiac Imaging [address] [place] [address] 05/31/2025 4:30 PM EST Appointment [facility] Breast [facility] Comprehensive Breast Care Center [facility] [address] [place] [address] 06/12/2025 2:30 PM EST Office Visit [facility] [place] [address] [facility], [address] [place] [address] Juana Gale, AIRPORT ELECTRICIAN [address] [place] [address] 06/20/2025 10:30 AM EST Procedure Visit [facility] [address], 1st [place] [address] Claire Davidson MD [address] [facility]01 [place] [address] 06/21/2025 2:00 PM EST Office Visit [facility] [place] [facility] [address] [facility], [address] [place] [address] Claire Davidson MD [address] [facility]01 [place] [address] 07/17/2025 8:45 AM EST Clinical Support [facility] Transplant Center [address] [address] 07/17/2025 10:30 AM EST Office Visit [facility] Transplant [place] [address] [address] Nj Johns MD [address] [place] [address] documented as of this encounter [...] on filedocumented in this encounter Care Teams Water Treatment Plant Engineer Relationship Specialty Start Date End Date Trevor Rolon DO [address] [facility] 201 [place] [address] PCP - General 11/22/20 Mc Grant DO [address] [facility] 201 [place] [address] Referring Physician Gastroenterology 02/21/24 El Agarwal APRN [address] [place] [address] Referring Physician Gastroenterology 03/21/25 documented as of this encounter
--- OUTSIDE RECORDS SUMMARY | 2025-05-23 23:25 | XMS_ITS | Encounter Summary ---
Author Organization [facility] Address [address] [place] [address] Care Team Providers Care Bakery Sales Clerk Name Role Phone Trevor Rolon DO Primary Care Provider Mc Grant DO Unavailable [phone] El Agarwal MACHINE REPAIRER MAINTENANCE Unavailable [phone] Encounter Details Date Type Department Care Team (Late Contact Info) Description 09/08/2024 Orders Only External Location [address] [place] [address] Provider, External Social History Tobacco Use Types [...] EST Appointment [facility] Rad[facility] [address] [place] [address] 05/25/2025 2:00 PM EST Appointment [facility] Pulmonary Function Testing [address] [place] [address] 05/25/2025 3:30 PM EST Appointment Cardiac Imaging [address] [place] [address] 05/31/2025 4:30 PM EST Appointment [facility] Breast Care [facility] Comprehensive Breast Care Center [facility] [address] Building [address] [place] [address] 06/12/2025 2:30 PM EST Office Visit [facility] [place] [address] [facility], [address] [place] [address] Juana Gale, MACHINE REPAIRER MAINTENANCE [address] [place] [address] 06/20/2025 10:30 AM EST Procedure [facility] [address], 1st [place] [address] Claire Davidson MD [address] [facility]01 [place] [address] 06/21/2025 2:00 PM EST Office [facility] [address] [facility], [address] [place] [address] Claire Davidson MD [address] [facility]01 [place] [address] 07/17/2025 8:45 AM EST Clinical Support [facility] [address] [address] 07/17/2025 10:30 AM EST [facility] [place] [address] [address] Nj Johns MD [address] [place] [address] documented as of this encounter [...] documented as of this encounter Care Teams Bakery Sales Clerk Relationship Specialty Start Date End Date Trevor Rolon DO [address] [facility] 201 [place] [address] PCP - General 11/22/20 Mc Grant DO [address] [facility] [address] [place] [address] Referring Physician Gastroenterology 02/21/24 El Agarwal APRN [address] [place] [address] Referring Physician Gastroenterology 03/21/25 documented as of this encounter
--- OUTSIDE RECORDS SUMMARY | 2025-05-23 23:25 | XMS_ITS ---
Author Organization [facility] Address [address] [place] [address] Care Team Providers Care Manager Drug Safety Name Role Phone Trevor Rolon DO Primary Care Provider Mc Grant DO Unavailable [phone] El Agarwal APRN Unavailable [phone] Transplant Episode Liver Candidate [facility] ([place], [place]) - [facility] Evaluation began on 04/10/2025 Marked as Active on 04/10/2025 Liver CoordinatorMadyson Sarabia RN Fax: N/A Email: N/A Scores Score Value Updated Expires Exceptions/Mela sons CPRA Not available MELD (Calc) 19 05/18/2025 Care Team Name Role Phone Fax Email Madyson Sarabia RN Liver Coordinator [phone] N/A N/A Thuy Dasilva LCSW Sewing Machine Operator Paper Bags [phone] N/A N/A Asael Esteves MD Surgeon [phone] N/A El Agarwal APRN Referring Physician [phone] N/A Events Pre-Transplant Referred: 03/21/2025 Evaluation began: 04/10/2025 Committee: 04/09/2025 Appointments (04/22/2025 - 06/22/2025) When With Visit Type Description 05/18/2025 Transplant - Heather Almanza Dietitian - New Patient 05/18/2025 Transplant - Heather Jay LAB End-s tage liver disease (CMS/HCC) 05/18/2025 Transplant - Magali Mancuso Medication Manag ement Encounter for pre-transplant evaluation for liver transplant (Primary Dx) 05/18/2025 Transplant - Ronny Dasilva Social Wo rk - New Patient 05/18/2025 Transplant - Damon Johns Office Visit - Tr ansplant End-stage liver disease (CMS/HCC)
--- OUTSIDE RECORDS SUMMARY | 2025-05-23 23:25 | XMS_ITS | Encounter Summary ---
Author Organization [facility] Address [address] [place] [address] Care Team Providers Care Manager Pharmaceutical Name Role Phone Trevor Rolon DO Primary Care Provider [phone] Mc Grant DO Unavailable [phone] El Agarwal DIRECTOR IT PROJECT Unavailable [phone] Reason for Referral * Consultation (Routine) - Authorized Specialty Diagnoses / Procedures Referred By Truong bella Referred To Contact Cardiology Diagnoses HTN, goal to be determined Laquita Corral PA [address] [place] [address] Phone: tel: fax: Referral ID Status Reason Start Date Expiration Date Visits Requested Visits Authorized [id number] Authorized Specialty Services Required 03/04/2025 09/03/2026 1 1 * Consultation (Routine) - Closed Specialty Diagnoses / Procedures Referred By Truong bella Referred To Contact Neurology Diagnoses Neuropathic pain, leg, bilateral Laquita Corral PA [address] [place] [address] Phone: tel: fax: Referral ID Status Reason Start Date Expiration Date V isits Requested Visits Authorized [id number] Closed Specialty Services Required 03/04/2025 09/03/2026 1 1 Encounter Details Date Type Department Care Team (Late st Contact Info) Description 03/04/2025 [facility] [address] [place] [address] Laquita Corral PA [address] [place] [address] Neuropathic pain, leg, bilateral (Primary Dx); HTN, [...] EST Appointment [facility] Radiology [address] [place] [address] 05/25/2025 2:00 PM EST Appointment [facility] H Pulmonary Function Testing [address] [place] [address] 05/25/2025 3:30 PM EST Appointment Cardiac Imaging [address] [place] [address] 05/31/2025 4:30 PM EST Appointment [facility] [address] [place] [address] 06/12/2025 2:30 PM EST Office Visit [facility] [place] [address] [facility], [address] [place] [address] Juana Gale, DIRECTOR IT PROJECT [address] [place] [address] 06/20/2025 10:30 AM EST Procedure Visit [facility] [address], 1st [place] [address] Claire Davidson MD [address] [place] [address] 06/21/2025 2:00 PM EST Office Visit [facility] [address] [facility], [address] [place] [address] Claire Davidson MD [address] [place] [address] 07/17/2025 8:45 AM EST Clinical Support [facility] [address] [facility] [address] [place] [address] 07/17/2025 10:30 AM EST Office Visit [facility] [address] [place] [address] Nj Johns MD [address] [facility] [address] [place] [address] Scheduled Referrals Name Type Priority [...] as of this encounter Care Teams Manager Pharmaceutical Relationship Specialty Start Date End Date Trevor Rolon DO [address] [facility] 201 [place] [address] PCP - General 11/22/20 Mc Grant DO [address] [facility] 201 [place] [address] Referring Physician Gastroenterology 02/21/24 El Agarwal APRN [address] [place] [address] Referring Physician Gastroenterology 03/21/25 documented as of this encounter
--- OUTSIDE RECORDS SUMMARY | 2025-05-23 23:25 | XMS_ITS | Encounter Summary ---
Author Organization [facility] Address [address] [place] [address] Care Team Providers Care Radiation Monitor Name Role Phone Trevor Rolon DO Primary Care Provider [phone] Mc Grant DO Unavailable [phone] El Agarwal DIE CASTING MACHINE MAINTAINER Unavailable [phone] Encounter Details Date Type Department Care Team (Late Contact Info) Description 02/12/2025 Orders Only External Location [address] [place] [address] Provider, External Social History Tobacco Use Types [...] EST Appointment [facility] [address] [place] [address] 05/25/2025 2:00 PM EST Appointment [facility] Pulmonary Function Testing [address] [place] [address] 05/25/2025 3:30 PM EST Appointment Cardiac Imaging [address] [place] [address] 05/31/2025 4:30 PM EST Appointment [facility] [address] [place] [address] 06/12/2025 2:30 PM EST Office Visit [facility] [place] [address] [facility], [address] [place] [address] Juana Gale, DIE CASTING MACHINE MAINTAINER [address] [place] [address] 06/20/2025 10:30 AM EST Procedure Visit [facility] [address] 1[address] [place] [address] Claire Davidson MD [address] [facility] [place] [address] 06/21/2025 2:00 PM EST Office Visit [facility] [address] [facility], [address] [place] [address] Claire Davidson MD [address] [place] [address] 07/17/2025 8:45 AM EST Clinical Support [facility] [address] [facility] [address] [place] [address] 07/17/2025 10:30 AM EST Office Visit [facility] [address] [place] [address] Nj Johns MD [address] [place] [address] documented as of this encounter Procedures Procedure Name Priority Date/Time Associated Diagnosis Comments XR OUTSIDE IMAGES 02/12/2025 2:50 PM EDT documented in this encounter Results * XR OUTSIDE IMAGES (02/12/2025 2:50 PM EDT) Anatomical Region Laterality Modality Radiographic Zayda ging 02/12/2025 2:50 PM EDT us External Provider IMG XR [...] documented as of this encounter Care Teams Radiation Monitor Relationship Specialty Start Date End Date Trevor Rolon DO [address] [facility] 201 [place] [address] PCP - General 11/22/20 Mc Grant DO [address] [facility] 201 [place] [address] Referring Physician Gastroenterology 02/21/24 El Agarwal APRN [address] [place] [address] Referring Physician Gastroenterology 03/21/25 documented as of this encounter
--- OUTSIDE RECORDS SUMMARY | 2025-05-23 23:25 | XMS_ITS | Encounter Summary ---
Author Organization [facility] Address [address] [place] [address] Care Team Providers Care Information Technology Analyst Name Role Phone Trevor Rolon DO Primary Care Provider [phone] Mc Grant DO Unavailable [phone] El Agarwal SCIENTIST PROPAGATOR Unavailable [phone] Reason for Referral * Consultation (Routine) - Authorized Specialty Diagnoses / Procedures Referred By Truong bella Referred To Contact Hematology / Blood and Marrow Transplant Diagnoses Thrombocytopenia (CMS/HCC) Laquita Corral PA [address] [place] [address] Phone: tel: fax: Igor Harris MD [address] [facility] [address] [place] [address] Phone: tel: fax: Referral ID Status Reason Start Date Expiration Date Visits Requested Visits Authorized [id number] Authorized Specialty Services Required 03/28/2025 09/27/2026 1 1 Encounter Details Date Type Department Care Team (Latest Contact Info) Description 03/28/2025 Community [facility] [address] [place] [address] Laquita Corral PA [address] [place] [address] Thrombocytopenia ([facility]) (Primary Dx) Social History Tobacco Use Types [...] EST Appointment [facility] [address] [place] [address] 05/25/2025 2:00 PM EST Appointment [facility] Pulmonary Function Testing [address] [place] [address] 05/25/2025 3:30 PM EST Appointment Cardiac Imaging [address] [place] [address] 05/31/2025 4:30 PM EST Appointment [facility] [address] [place] [address] 06/12/2025 2:30 PM EST Office Visit [facility] [place] [address] [facility], [address] [place] [address] Juana Gale APRN [address] [place] [address] 06/20/2025 10:30 AM EST Procedure Visit [place] [facility] [address], 1[address] [place] [address] Claire Davidson MD [address] [place] [address] 06/21/2025 2:00 PM EST Office [facility] [address] [facility], [address] [place] [address] Claire Davidson MD [address] [place] [address] 07/17/2025 8:45 AM EST Clinical Support [facility] Transplant [place] [address] [place] [address] 07/17/2025 10:30 AM EST Office Visit [facility] Transplant [place] [address] [place] [address] Nj Johns MD [address] [place] [address] Scheduled Referrals Name Type [...] of this encounter Care Teams Information Technology Analyst Relationship Specialty Start Date End Date Trevor Rolon DO [address] [facility] 201 [place] [address] PCP - General 11/22/20 Mc Grant DO [address] [facility] [address] [place] 02[address] Referring Physician Gastroenterology 02/21/24 El Agarwal APRN [address] [place] [id number] Referring Physician Gastroenterology 03/21/25 documented as of this encounter
--- OUTSIDE RECORDS SUMMARY | 2025-05-23 23:25 | XMS_ITS | Encounter Summary ---
Author Organization [facility] Address [address] [place] [address] Care Team Providers Care Spanish Language Lecturer Name Role Phone Trevor Rolon DO Primary Care Provider [phone] Mc Grant DO Unavailable [phone] El Agarwal DRAFTER ELECTROMECHANICAL Unavailable [phone] Encounter Details Date Type Department Care Team (Late Contact Info) Description 02/12/2025 Orders Only External Location [address] [place] [address] Provider, External Social History Tobacco Use Types [...] EST Appointment [facility] [address] [place] [address] 05/25/2025 2:00 PM EST Appointment [facility] Pulmonary Function Testing [address] [place] [address] 05/25/2025 3:30 PM EST Appointment Cardiac Imaging [address] [place] [address] 05/31/2025 4:30 PM EST Appointment [facility] [address] [place] [address] 06/12/2025 2:30 PM EST Office Visit [facility] [place] [address] [facility], [address] [place] [address] Juana Gale, DRAFTER ELECTROMECHANICAL [address] [place] [address] 06/20/2025 10:30 AM EST Procedure Visit [facility] [address], 1st [place] [address] Claire Davidson MD [address] [facility]01 [place] [address] 06/21/2025 2:00 PM EST Office Visit [facility] [address] [facility], [address] [place] [address] Claire Davidson MD [address] [place] [address] 07/17/2025 8:45 AM EST Clinical Support [facility] [address] [facility] [address] [place] [address] 07/17/2025 10:30 AM EST Office Visit [facility] [address] [place] [address] Nj Johns MD [address] [place] [address] documented as of this encounter [...] documented as of this encounter Care Teams Spanish Language Lecturer Relationship Specialty Start Date End Date Trevor Rolon DO [address] [facility] 201 [place] [address] PCP - General 11/22/20 Mc Grant DO [address] [facility] 201 [place] [address] Referring Physician Gastroenterology 02/21/24 El Agarwal APRN [address] [place] [address] Referring Physician Gastroenterology 03/21/25 documented as of this encounter
--- OUTSIDE RECORDS SUMMARY | 2025-05-23 23:25 | XMS_ITS | Encounter Summary ---
Author Organization [facility] Address [address] [place] [address] Care Team Providers Care Chili Maker Name Role Phone Trevor Rolon DO Primary Care Provider [phone] Mc Grant DO Unavailable [phone] El Agarwal ELECTRICAL MANUFACTURING TECHNICIAN Unavailable [phone] Encounter Details Date Type Department Care Team (Late Contact Info) Description 10/24/2024 Orders Only External Location [address] [place] [address] Provider, External Social History Tobacco Use Types [...] EST Appointment [facility] [address] [place] [address] 05/25/2025 2:00 PM EST Appointment [facility] Pulmonary Function Testing [address] [place] [address] 05/25/2025 3:30 PM EST Appointment Cardiac Imaging [address] [place] [address] 05/31/2025 4:30 PM EST Appointment [facility] [address] [place] [address] 06/12/2025 2:30 PM EST Office Visit [facility] [place] [address] [facility], [address] [place] [address] Juana Gale, ELECTRICAL MANUFACTURING TECHNICIAN [address] [place] [address] 06/20/2025 10:30 AM EST Procedure Visit [facility] [address], 1[address] [place] [address] Claire Davidson MD [address] [facility]01 [place] [address] 06/21/2025 2:00 PM EST Office Visit [facility] [address] [facility], [address] [place] [address] Claire Davidson MD [address] [place] [address] 07/17/2025 8:45 AM EST Clinical Support [facility] [address] [facility] [address] [place] [address] 07/17/2025 10:30 AM EST Office Visit [facility] [address] [place] [address] Nj Johns MD [address] [place] [address] documented as of this encounter Procedures Procedure [...] documented as of this encounter Care Teams Chili Maker Relationship Specialty Start Date End Date Trevor Rolon DO [address] [facility] 201 [place] [address] PCP - General 11/22/20 Mc Grant DO [address] [facility] 201 [place] [address] Referring Physician Gastroenterology 02/21/24 El Agarwal APRN [address] [place] [address] Referring Physician Gastroenterology 03/21/25 documented as of this encounter
--- OUTSIDE RECORDS SUMMARY | 2025-05-23 23:25 | XMS_ITS | Encounter Summary ---
Author Organization [facility] Address [address] [place] [address] Care Team Providers Care Control Room Operator Name Role Phone Trevor Rolon DO Primary Care Provider [phone] Mc Grant DO Unavailable [phone] El Agarwal BRINE MIXER OPERATOR Unavailable [phone] Encounter Details Date Type Department Care Team (Late Contact Info) Description 02/20/2025 Orders Only External Location [address] [place] [address] Provider, External Social History Tobacco Use Types [...] EST Appointment [facility] [address] [place] [address] 05/25/2025 2:00 PM EST Appointment [facility] Pulmonary Function Testing [address] [place] [address] 05/25/2025 3:30 PM EST Appointment Cardiac Imaging [address] [place] [address] 05/31/2025 4:30 PM EST Appointment [facility] [address] [place] [address] 06/12/2025 2:30 PM EST Office Visit [facility] [place] [address] [facility], [address] [place] [address] Juana Gale, BRINE MIXER OPERATOR [address] [place] [address] 06/20/2025 10:30 AM EST Procedure Visit [facility] [address], 1st [place] [address] Claire Davidson MD [address] [facility]01 [place] [address] 06/21/2025 2:00 PM EST Office Visit [facility] [address] [facility], [address] [place] [address] Claire Davidson MD [address] [place] [address] 07/17/2025 8:45 AM EST Clinical Support [facility] [address] [facility] [address] [place] [address] 07/17/2025 10:30 AM EST Office Visit [facility] [address] [place] [address] Nj Johns MD [address] [place] [address] documented as of this encounter [...] documented as of this encounter Care Teams Control Room Operator Relationship Specialty Start Date End Date Trevor Rolon DO [address] [facility] 201 [place] [address] PCP - General 11/22/20 Mc Grant DO [address] [facility] 201 [place] [address] Referring Physician Gastroenterology 02/21/24 El Agarwal APRN [address] [place] [address] Referring Physician Gastroenterology 03/21/25 documented as of this encounter
--- OUTSIDE RECORDS SUMMARY | 2025-05-23 23:25 | XMS_ITS | Encounter Summary ---
Author Organization [facility] Address [address] [place] [address] Care Team Providers Care Performance Consultant Name Role Phone Trevor Rolon DO Primary Care Provider [phone] Mc Grant DO Unavailable [phone] El Agarwal ACCURACY EXPERT Unavailable [phone] Encounter Details Date Type Department Care Team (Late Contact Info) Description 11/15/2024 Orders Only External Location [address] [place] [address] Provider, External Social History Tobacco Use Types [...] EST Appointment [facility] Radiology [address] [place] [address] 05/25/2025 2:00 PM EST Appointment [facility] Pulmonary Function Testing [address] [place] [address] 05/25/2025 3:30 PM EST Appointment Cardiac Imaging [address] [place] [address] 05/31/2025 4:30 PM EST Appointment [facility] [address] [place] [address] 06/12/2025 2:30 PM EST Office Visit [facility] [place] [address] [facility], [address] [place] [address] Juana Gale, ACCURACY EXPERT [address] [place] [address] 06/20/2025 10:30 AM EST Procedure Visit [facility] [address] 1[address] [place] [address] Claire Davidson MD [address] [facility]01 [place] [address] 06/21/2025 2:00 PM EST Office Visit [facility] [address] [facility], [address] [place] [address] Claire Davidson MD [address] [place] [address] 07/17/2025 8:45 AM EST Clinical Support [facility] Transplant Center [address] [facility] [address] [place] [address] 07/17/2025 10:30 AM EST Office Visit [facility] [address] [place] [address] Nj Johns MD [address] [place] [address] documented as of this encounter [...] documented as of this encounter Care Teams Performance Consultant Relationship Specialty Start Date End Date Trevor Rolon DO [address] [facility] 201 [place] [address] PCP - General 11/22/20 Mc Grant DO [address] [facility] 201 [place] [address] Referring Physician Gastroenterology 02/21/24 El Agarwal APRN [address] [place] [address] Referring Physician Gastroenterology 03/21/25 documented as of this encounter
--- OUTSIDE RECORDS SUMMARY | 2025-05-23 23:25 | XMS_ITS | Encounter Summary ---
Author Organization [facility] Address [address] [place] [address] Care Team Providers Care Fur Cutter Name Role Phone Trevor Rolon DO Primary Care Provider Mc Grant DO Unavailable [phone] El Agarwal LIFE INSURANCE SALES Unavailable Encounter Details Date Type Department Care Team (Late st Contact Info) Description 02/18/2024 [facility] [address] [place] [address] Mc Grant DO [address] [place] [address] Encephalopathy, hepatic (CMS/HCC) (Primary Dx); [...] Upcoming Encounters Date Type Department Care Team ([facility] st Contact Info) Description 05/25/2025 11:30 AM EST Appointment [facility] Radiology [address] [place] [address] 05/25/2025 2:00 PM EST Appointment [facility] H Pulmonary Function Testing [address] [place] [address] 05/25/2025 3:30 PM EST Appointment Cardiac Imaging [address] [place] [address] 05/31/2025 4:30 PM EST Appointment [facility] [address] [place] [address] 06/12/2025 2:30 PM EST Office Visit [facility] [place] [address] [facility], [address] [place] [address] Juana Gale APRN [address] [place] [address] 06/20/2025 10:30 AM EST Procedure Visit [place] [facility] [address] 1[address] [place] [address] Claire Davidson MD [address] [facility]01 [place] [address] 06/21/2025 2:00 PM EST Office Visit [facility] [place] [facility] [address] [facility], [address] [place] [address] Claire Davidson MD [address] [place] [address] 07/17/2025 8:45 AM EST Clinical Support [facility] [place] [address] [facility] [address] [place] [address] 07/17/2025 10:30 AM EST Office [facility] [place] [address] [place] [address] Nj Johns MD [address] [facility] [address] [place] [address] documented as of this encounter [...] documented as of this encounter Care Teams Fur Cutter Relationship Specialty Start Date End Date Trevor Rolon DO [address] [facility] 201 [place] [address] PCP - General 11/22/20 Mc Grant DO [address] [facility] 201 [place] [address] Referring Physician Gastroenterology 02/21/24 El Agarwal APRN [address] [place] [address] Referring Physician Gastroenterology 03/21/25 documented as of this encounter
--- OUTSIDE RECORDS SUMMARY | 2025-05-23 23:25 | XMS_ITS | Encounter Summary ---
Author Organization [facility] Address [address] [place] [address] Care Team Providers Care Competitive Athlete Name Role Phone Trevor Rolon DO Primary Care Provider [phone] Mc Grant DO Unavailable [phone] El Agarwal GAS AND OIL CHECKER Unavailable [phone] Encounter Details Date Type Department Care Team (Late Contact Info) Description 11/15/2024 Orders Only External Location [address] [place] [address] Provider, External Social History Tobacco Use Types [...] EST Appointment LOIS G Radiology [address] [place] [address] 05/25/2025 2:00 PM EST Appointment LO[facility] Pulmonary Function Testing [address] [place] [address] 05/25/2025 3:30 PM EST Appointment Cardiac Imaging [address] [place] [address] 05/31/2025 4:30 PM EST Appointment [facility] [address] [place] [address] 06/12/2025 2:30 PM EST Office Visit [facility] [place] [address] [facility], [address] [place] [address] Juana Gale, GAS AND OIL CHECKER [address] [place] [address] 06/20/2025 10:30 AM EST Procedure Visit [facility] [address], 1st [place] [address] Claire Davidson MD [address] [facility]01 [place] [address] 06/21/2025 2:00 PM EST Office Visit [facility] [address] [facility], [address] [place] [address] Claire Davidson MD [address] [place] [address] 07/17/2025 8:45 AM EST Clinical Support [facility] Transplant Center [address] [facility] [address] [place] [address] 07/17/2025 10:30 AM EST Office Visit [facility] Transplant Center [address] [place] [address] Nj Johns MD [address] [place] [address] documented as of this encounter [...] documented as of this encounter Care Teams Competitive Athlete Relationship Specialty Start Date End Date Trevor Rolon DO [address] [facility] 201 [place] [address] PCP - General 11/22/20 Mc Grant DO [address] [facility] 201 [place] [address] Referring Physician Gastroenterology 02/21/24 El Agarwal APRN [address] [place] [address] Referring Physician Gastroenterology 03/21/25 documented as of this encounter
--- OUTSIDE RECORDS SUMMARY | 2025-05-23 23:25 | XMS_ITS | Encounter Summary ---
Author Organization [facility] Address [address] [place] [address] Care Team Providers Care Program/Music Director Name Role Phone Trevor Rolon DO Primary Care Provider Mc Grant DO Unavailable [phone] El Agarwal MARKETING TECHNOLOGY COORDINATOR Unavailable [phone] Reason for Referral * Transplant (Routine) - Authorized Specialty Diagnoses / Procedures Referred By Truong bella Referred To Contact Transplant Surgery / Transplant Diagnoses Cirrhosis of liver without ascites, unspecified hepatic cirrhosis type El Agarwal APRN [address] [place] [address] Phone: tel: fax: Referral ID Status Reason Start Date Expiration Date Visits Requested Visits Authorized [id number] Authorized Specialty Services Required 03/21/2025 09/20/2026 999 999 Encounter Details Date Type Department Care Team (Late st Contact Info) Description 03/21/2025 Community [facility] Community Practice [address] [place] [address] El Agarwal MARKETING TECHNOLOGY COORDINATOR [address] [place], [place] [id number] Cirrhosis of liver without ascites, unspecified hepatic [...] EST Appointment P[facility] G Radiology [address] [place] [phone] 05/25/2025 2:00 PM EST Appointment PAV H Pulmonary Function Testing [address] [place] [address] 05/25/2025 3:30 PM EST Appointment Cardiac Imaging [address] [place] [address] 05/31/2025 4:30 PM EST Appointment [facility] Breast Care Center [facility] [address] [place] [address] 06/12/2025 2:30 PM EST Office Visit [facility] [place] [address] [facility], [address] [place] [address] Juana Gale, CYDNEY [address] [place] [address] 06/20/2025 10:30 AM EST Procedure Visit [place] [facility] [address], 1st [place] [address] Claire Davidson MD [address] [place] [address] 06/21/2025 2:00 PM EST Office Visit [facility] [address] [facility], [address] [place] [address] Claire Davidson MD [address] [place] [address] 07/17/2025 8:45 AM EST Clinical Support [facility] Transplant [place] [address] [place] [address] 07/17/2025 10:30 AM EST Office [facility] Transplant [place] [id number] [place] [address] Nj Johns MD [address] [place] [address] Scheduled Referrals Name Type Priority [...] documented as of this encounter Care Teams Program/Music Director Relationship Specialty Start Date End Date Trevor Rolon DO [address] [address] PCP - General 11/22/20 Mc Grant DO [address] [facility] Gabriel [address] [place] [phone] Referring Physician Gastroenterology 02/21/24 El Agarwal APRN [address] [place] [address] Referring Physician Gastroenterology 03/21/25 documented as of this encounter
[2025-05-23 23:26] LABS: Activated Partial Thrombo Time 31.8 seconds (22.8-30.6); INR 1.24 (0.9-1.1); Prothrombin Time 13.5 seconds (10.1-12.5)
--- OUTSIDE RECORDS SUMMARY | 2025-05-23 23:26 | XMS_ITS | Encounter Summary ---
Author Organization [facility] nter Address [address] [place] [address] Care Team Providers Care School Bus Mechanic Name Role Phone Trevor Rolon DO Primary Care Provider Lucy Christopher DO Unavailable Encounter Details Date Type Department Care Team (Late st Contact Info) Description 12/29/2022 Orders Only [facility] [address], 2nd [place] [address] Brigitte Mahoney, CLAU [address] [place] [address] Social History Tobacco Use Types [...] [facility] [address] , 2nd [place] [address] 06/27/2025 10:00 AM EST Office Visit [facility] SLEEP LAB PRACTICE [address] [place] [address] Demario Silva DO 911 [place] [address] 08/16/2025 10:00 AM EST Office Visit [facility] ENDOCRINOLOGY PRACTICE [address] , 8th [place] [address] Brigitte Mahoney NP 911 [place] [address] 09/18/2025 1:30 PM EDT Office Visit [facility] RHEUMATOLOGY PRACTICE [address], 8th Floor Clinic [place] [address] Suman Treviño MD [address] [place] [address] 12/13/2025 1:15 PM EDT Office Visit [facility] OBGYN PRACTICE [address], 7th Floor Clinic [place] [address] Janice Woodward, CLAU [address] [place] [address] documented as of this encounter Visit Diagnoses Not on filedocumented in this encounter Additional Health Concerns Assessment Noted Time PHQ-9 Depression Total Score: 0 07/24/19 23 3:00 PM EST documented as of this encounter Care Teams School Bus Mechanic Relationship Specialty Start Date End Date Trevor Rolon DO [address] [facility] [address] [place] [address] PCP - General Lucy Christopher DO [address] [place] [address] Consulting Physician Oncology 10/17/24 documented as of this encounter
--- OUTSIDE RECORDS SUMMARY | 2025-05-23 23:26 | XMS_ITS | Encounter Summary ---
Author Organization [facility] Address [address] [place] [address] Care Team Providers Care Aircraft Delivery Checker Name Role Phone Trevor Rolon DO Primary Care Provider [phone] Mc Grant DO Unavailable [phone] El Agarwal BRAZING MACHINE OPERATOR Unavailable [phone] Encounter Details Date Type Department Care Team (Latest Contact Info) Description 05/18/2025 Travel Social History Tobacco Use Types Packs/Day [...] 0 05/18/2025 10:47 AM EST Adriane Macario documented as of this encounter Plan of Treatment Upcoming Encounters Date Type Department Care Team ([facility] st Contact Info) Description 05/25/2025 11:30 AM EST Appointment [facility] Radiology [address] [place] [address] 05/25/2025 2:00 PM EST Appointment LO[facility] Pulmonary Function Testing [address] [place] [address] 05/25/2025 3:30 PM EST Appointment Cardiac Imaging [address] [place] [address] 05/31/2025 4:30 PM EST Appointment LO[facility] Breast Care [facility] Breast [facility] Center [address] 800 [place] [address] 06/12/2025 2:30 PM EST Office Visit [facility] [place] [address] [facility], [address] [place] [address] Juana Gale APRN [address] [place] [address] 06/20/2025 10:30 AM EST Procedure Visit [place] [facility] [address], 1st [place] [address] Claire Davidson MD [address] [place] [address] 06/21/2025 2:00 PM EST Office Visit [facility] [address] [facility], [address] [place] [address] Claire Davidson MD [address] [place] [address] 07/17/2025 8:45 AM EST Clinical Support [facility] Trans[facility] [place] [address] [place] [address] 07/17/2025 10:30 AM EST Office Visit [facility] [place] [address] [place] [address] Nj [place] MD [address] [facility] [address] [place] [address] documented as of this encounter Visit Diagnoses [...] documented as of this encounter Care Teams Aircraft Delivery Checker Relationship Specialty Start Date End Date Trevor Rolon DO [address] [facility] 201 [place] [address] PCP - General 11/22/20 Mc Grant DO [address] [facility] 201 [place] [address] Referring Physician Gastroenterology 02/21/24 El Agarwal APRN [address] [place] [address] Referring Physician Gastroenterology 03/21/25 documented as of this encounter
--- OUTSIDE RECORDS SUMMARY | 2025-05-23 23:26 | XMS_ITS | Encounter Summary ---
Author Organization [facility] Address [address] [place] [address] Care Team Providers Care Circulation Man Name Role Phone Trevor Rolon DO Primary Care Provider Mc Grant DO Unavailable [phone] El Agarwal ENGINEERING AND DEVELOPMENT DIRECTOR Unavailable [phone] Encounter Details Date Type Department Care Team (Late Contact Info) Description 08/16/2024 Orders Only External Location [address] [place] [address] Provider, External Social History Tobacco Use Types [...] EST Appointment [facility] Radiology [address] [place] [address] 05/25/2025 2:00 PM EST Appointment LO[facility] Pulmonary Function Testing [address] [place] [address] 05/25/2025 3:30 PM EST Appointment Cardiac Imaging [address] [place] [address] 05/31/2025 4:30 PM EST Appointment [facility] Breast Care Center Comprehensive Breast Care [facility] [address] [place] [address] 06/12/2025 2:30 PM EST Office Visit [facility] [place] [facility] [address] [facility], [address] [place] [address] Juana Gale, ENGINEERING AND DEVELOPMENT DIRECTOR [address] [place] [address] 06/20/2025 10:30 AM EST Procedure Visit [facility] [address], 1st [place] [address] Claire Davidson MD [address] [facility]01 [place] [address] 06/21/2025 2:00 PM EST Office Visit [facility] [address] [facility], [address] [place] [address] Claire Davidson MD [address] [facility]01 [place] [address] 07/17/2025 8:45 AM EST Clinical Support [facility] Transplant Center [address] [address] 07/17/2025 10:30 AM EST Office Visit [facility] Transplant [place] [address] [address] Nj [place] MD [address] [place] [address] documented as of this encounter [...] documented as of this encounter Care Teams Circulation Man Relationship Specialty Start Date End Date Trevor Rooln DO [address] [facility] 201 [place], [place] [address] PCP - General 11/22/20 Mc Grant DO [address] [facility] 201 [place] [address] Referring Physician Gastroenterology 02/21/24 El Agarwal APRN [address] [place] [address] Referring Physician Gastroenterology 03/21/25 documented as of this encounter
--- OUTSIDE RECORDS SUMMARY | 2025-05-23 23:26 | XMS_ITS | Encounter Summary ---
Author Organization [facility] nter Address [address] [place] [address] Care Team Providers Care Patient Accounts Clerk Name Role Phone Trevor Rolon DO Primary Care Provider Lucy Christopher DO Unavailable Reason for Referral * Consultation (Routine) - Authorized Specialty Diagnoses / Procedures Referred By Truong bella Referred To Contact Obstetrics and Gynecology Diagnoses Well woman exam with routine gynecological exam Procedures ND OFFICE/OUTPATIENT NEW SF MDM 15 MINUTES ND OFFICE/OUTPATIENT NEW LOW MDM 30 MINUTES ND OFFICE/OUTPATIENT NEW MODERATE MDM 45 MINUTES ND OFFICE/OUTPATIENT NEW HIGH MDM 60 MINUTES ND OFFICE/OUTPATIENT ESTABLISHED SF MDM 10 MIN ND OFFICE/OUTPATIENT ESTABLISHED LOW MDM 20 MIN ND OFFICE/OUTPATIENT ESTABLISHED MOD MDM 30 MIN ND OFFICE/OUTPATIENT ESTABLISHED HIGH MDM 40 MIN Laquita Corral PA [address] [facility] [address] [place] [address] Phone: tel: fax: Lupe Crisostomo DO [address] [place] [address] Phone: tel: fax: Referral ID Status Reason Start Date Expiration Date Visits Requested Visits Authorized [id number] Authorized Specialty Services Required 11/28/2024 11/28/2025 1 3 Encounter Details Date Type Department Care Team (Latest Contact Info) Description 11/28/2024 Community Orders EpicCare Link [address] [facility] [place] [address] Laquita Corral PA [address] [facility] [address] [place] [address] Well woman exam with routine gynecological exam [...] How often do you attend chur or mandaen services? More than 4 times per year [...] GASTROENTEROLOGY PRACTICE [address], 2nd [place] [address] 06/27/2025 10:00 AM EST Office Visit [facility] SLEEP LAB PRACTICE [address] , [place] [address] Demario Silva DO [address] [place] [address] 08/16/2025 10:00 AM EST Office Visit [facility] ENDOCRINOLOGY PRACTICE [address] , 8th Floor [place] [phone] Brigitte Mahoney NP [address] [facility] [place] [address] 09/18/2025 1:30 PM EDT Office Visit [facility] RHEUMATOLOGY PRACTICE [address], 8th [place] [address] Suman Treviño MD [address] [place] [address] 12/13/2025 1:15 PM EDT Office Visit [facility] OBGYN PRACTICE [address], 7th [place] [address] Janice Woodward NP [address] [place] [address] Scheduled Referrals Name Type Priority Associated Diagnoses [...] documented as of this encounter Care Teams Patient Accounts Clerk Relationship Specialty Start Date End Date Trevor Rolon DO [address] [facility] [address] [place] [address] PCP - General Lucy Christopher DO [address] [facility] [address] [facility] [place] [address] Consulting Physician Oncology 10/17/24 documented as of this encounter
--- OUTSIDE RECORDS SUMMARY | 2025-05-23 23:26 | XMS_ITS | Encounter Summary ---
Author Organization [facility] Address [address] [place] [address] Care Team Providers Care Plc Technician Name Role Phone Trevor Rolon DO Primary Care Provider [phone] Mc Grant DO Unavailable [phone] El Agarwal TYPIST Unavailable [phone] Encounter Details Date Type Department Care Team (Late st Contact Info) Description 04/19/2025 Results Follow-Up [facility] Transplant Center [address] [facility] [address] [place] [address] Madyson Sarabia, RN HOSPITAL LIVER [id number] [address] [place] [address] Social History Tobacco Use Types [...] EST Appointment PAV G Radiology [address] [place] [address] 05/25/2025 2:00 PM EST Appointment PAV H Pulmonary Function Testing 800 [place] [address] 05/25/2025 3:30 PM EST Appointment Cardiac Imaging [address] [place] [address] 05/31/2025 4:30 PM EST Appointment PAV Breast Care Center [facility] [address] [place] [address] 06/12/2025 2:30 PM EST Office Visit [facility] [place] [address] [facility], [address] [place] [address] Juana Gale APRN [address] [place] [address] 06/20/2025 10:30 AM EST Procedure Visit [place] [facility] [address], 1st [place] [address] Claire Davidson MD [address] [place] [address] 06/21/2025 2:00 PM EST Office Visit [facility] [place] [facility] [address] [facility], [address] [place] [address] Claire Davidson MD [address] [place] [address] 07/17/2025 8:45 AM EST Clinical Support [facility] Transplant [place] [address] [place] [address] 07/17/2025 10:30 AM EST Office Visit [facility] Transplant [place] [address] [place] [address] Nj Johns MD [address] [place] [address] documented as of this encounter [...] documented as of this encounter Care Teams Plc Technician Relationship Specialty Start Date End Date Trevor Rolon DO [address] [facility] 201 [place] [address] PCP - General 11/22/20 Mc Grant DO [address] [facility] 201 [place] [address] Referring Physician Gastroenterology 02/21/24 El Agarwal APRN [address] [place] [address] Referring Physician Gastroenterology 03/21/25 documented as of this encounter
--- OUTSIDE RECORDS SUMMARY | 2025-05-23 23:26 | XMS_ITS | Encounter Summary ---
Author Organization [facility] Address [address] [place] [address] Care Team Providers Care Tank Maker Wood Name Role Phone Trevor Rolon DO Primary Care Provider [phone] Mc Grant DO Unavailable [phone] El Agarwal PREPARER Unavailable [phone] Encounter Details Date Type Department Care Team (Late Contact Info) Description 09/08/2024 Orders Only External Location [address] [place] [address] Provider, External Social History Tobacco Use Types [...] EST Appointment LO[facility] Radiology [address] [place] [address] 05/25/2025 2:00 PM EST Appointment LOIS [facility] Pulmonary Function Testing [address] [place] [address] 05/25/2025 3:30 PM EST Appointment Cardiac Imaging [address] [place] [address] 05/31/2025 4:30 PM EST Appointment LOIS [facility] Breast Care Center Comprehensive Breast Care Center [facility] [address] [place] [address] 06/12/2025 2:30 PM EST Office Visit [facility] [place] [address] [facility] [place], [address] [place] [address] Juana Gale, PREPARER [address] [place] [address] 06/20/2025 10:30 AM EST Procedure Visit [facility] [address] [place], 1st [place] [address] Claire Davidson MD [address] [place] [facility]01 [place] [address] 06/21/2025 2:00 PM EST [facility] [address] [facility] [place], [address] [place] [address] Claire Davidson MD [address] [facility]01 [place] [address] 07/17/2025 8:45 AM EST Clinical Support [facility] Transplant Center [address] [place] [address] [address] 07/17/2025 10:30 AM EST Office Visit [facility] Transplant [place] [address] [address] Nj Johns MD [address] [place] [address] [place] [address] documented as of this [...] as of this encounter Care Teams Tank Maker Wood Relationship Specialty Start Date End Date Trevor Rolon DO [address] [facility] 201 [place] [address] PCP - General 11/22/20 Mc Grant DO [address] [facility] 201 [place] [address] Referring Physician Gastroenterology 02/21/24 El Agarwal APRN [address] [place] [address] Referring Physician Gastroenterology 03/21/25 documented as of this encounter
--- OUTSIDE RECORDS SUMMARY | 2025-05-23 23:26 | XMS_ITS | Encounter Summary ---
Author Organization [facility] Address [address] [place] [address] Care Team Providers Care Spd Manager Name Role Phone Trevor Rolon DO Primary Care Provider Mc Grant DO Unavailable [phone] El Agarwal SINTER PRESS OPERATOR Unavailable [phone] Encounter Details Date Type Department Care Team (Late st Contact Info) Description 07/01/2023 Orders Only External Location 800 [place] [address] Provider, External Social History Tobacco Use Types [...] EST Appointment PAV G Radiology [address] [place] [address] 05/25/2025 2:00 PM EST Appointment PAV H Pulmonary Function Testing 800 [place] [address] 05/25/2025 3:30 PM EST Appointment Cardiac Imaging [address] [place] [address] 05/31/2025 4:30 PM EST Appointment PAV Breast [facility] Breast Care [facility] [address] Building [address] [place] [address] 06/12/2025 2:30 PM EST Office Visit [facility] [place] [address] [facility], [address] [place] [address] Juana Gale APRN 800 [place] [address] 06/20/2025 10:30 AM EST Procedure Visit [facility] [address], 1st [place] [address] Claire Davidson MD [address] [place] [address] 06/21/2025 2:00 PM EST Office Visit [facility] Specialty Care Clinic [address] [facility], [address] [place] [address] Claire Davidson MD [address] [place] [address] 07/17/2025 8:45 AM EST Clinical Support [facility] Transplant Center [address] [place] [address] 07/17/2025 10:30 AM EST Office Visit [facility] Transplant Center [address] [place] [address] Nj [place] MD [address] [place] [address] documented as of this encounter Procedures Procedure [...] documented as of this encounter Care Teams Spd Manager Relationship Specialty Start Date End Date Trevor Rolon DO [address] [facility] 201 [place] [address] PCP - General 11/22/20 Mc Grant DO [address] [facility] 201 [place] [address] Referring Physician Gastroenterology 02/21/24 El Agarwal APRN [address] [place] [address] Referring Physician Gastroenterology 03/21/25 documented as of this encounter
--- OUTSIDE RECORDS SUMMARY | 2025-05-23 23:26 | XMS_ITS | Encounter Summary ---
Author Organization [facility] nter Address [address] [place] [address] Care Team Providers Care Catholic Priest Name Role Phone Trevor Rolon DO Primary Care Provider Lucy Christopher DO Unavailable Reason for Visit * Reason Comments Med Refill Encounter Details Date Type Department Care Team (Late st Contact Info) Description 09/14/2022 Refill [facility] NEUROLOGY PRACTICE [address], 8th Floor Clinic [place] [phone] Lupe Villalta, RESEARCH LABORATORY MANAGER [address] [facility] [place] [address] Other specified diabetes mellitus with [...] PRACTICE [address], 2nd [place] [address] 06/27/2025 10:00 AM EST Office Visit [facility] SLEEP LAB PRACTICE [address], [place] [address] Demario Silva DO [address] [place] [facility] 08/16/2025 10:00 AM EST Office Visit [facility] ENDOCRINOLOGY PRACTICE [address], 8th Floor Clinic [place] [address] Brigitte Mahoney NP [address] [facility] [place] [address] 09/18/2025 1:30 PM EDT Office Visit [facility] RHEUMATOLOGY PRACTICE [address], 8th Floor [facility] [place] [address] Suman Treviño MD [address] [place]. [place] [address] 12/13/2025 1:15 PM EDT Office Visit [facility] OBGYN PRACTICE [address], 7th Floor [facility] [place] [address] Janice Woodward NP [address] [place] [facility] documented as of this encounter Visit Diagnoses Diagnosis Other specified diabetes mellitus with diabetic neuropathy, unspecified documented in this encounter Additional Health Concerns Assessment Noted Time PHQ-9 Depression Total Score: 0 07/24/19 23 3:00 PM EST documented as of this encounter Care Teams Catholic Priest Relationship Specialty Start Date End Date Trevor Rolon DO [address] [facility] [address] [place] [address] PCP - General Lucy Christopher DO [address] [place] [facility] Consulting Physician Oncology 10/17/24 documented as of this encounter
--- OUTSIDE RECORDS SUMMARY | 2025-05-23 23:26 | XMS_ITS | Encounter Summary ---
Author Organization [facility] nter Address [address] [place] [address] Care Team Providers Care Tapper Shank Name Role Phone Trevor Rolon DO Primary Care Provider Lucy Christopher DO Unavailable Reason for Referral * Consultation (Routine) - Authorized Specialty Diagnoses / Procedures Referred By Truong bella Referred To Contact Podiatry Diagnoses Left foot pain Procedures DC OFFICE/OUTPATIENT NEW SF MDM 15 MINUTES DC OFFICE/OUTPATIENT NEW LOW MDM 30 MINUTES DC OFFICE/OUTPATIENT NEW MODERATE MDM 45 MINUTES DC OFFICE/OUTPATIENT NEW HIGH MDM 60 MINUTES DC OFFICE/OUTPATIENT ESTABLISHED SF MDM 10 MIN DC OFFICE/OUTPATIENT ESTABLISHED LOW MDM 20 MIN DC OFFICE/OUTPATIENT ESTABLISHED MOD MDM 30 MIN DC OFFICE/OUTPATIENT ESTABLISHED HIGH MDM 40 MIN Laquita Corral PA [address] [facility] [address] [place] [address] Phone: tel: fax: Alexandr Zarate, DPM [address] [place] [address] Phone: tel: fax: Referral ID Status Reason Start Date Expiration Date Visits Requested Visits Authorized [id number] Authorized Specialty Services Required 10/27/2024 10/27/2025 1 3 Encounter Details Date Type Department Care Team (Late st Contact Info) Description 10/26/2024 Community Orders EpicCare Link [address] [facility] [address] Laquita Corral PA [address] [facility] [address] [place] [address] Arthralgia of left foot (Primary Dx); Left [...] any clubs o r organizations such as worship groups, unions, fraternal or athletic groups, or [...] Description 06/18/2025 10:30 AM EST Office Visit [facility] GASTROENTEROLOGY PRACTICE [address] 2nd [place] [address] 06/27/2025 10:00 AM EST Office Visit [facility] SLEEP LAB PRACTICE [address] [place] [address] Demario Silva DO [address] [place] [address] [place] [address] 08/16/2025 10:00 AM EST Office Visit [facility] ENDOCRINOLOGY PRACTICE [address] 8[address] Floor [place] [phone] Brigitte Mahoney NP 911 [facility] [place] [address] 09/18/2025 1:30 PM EDT Office Visit [facility] RHEUMATOLOGY PRACTICE [address] 8th [place] [address] Suman Treviño MD [address] [place] [address]. [place] [address] 12/13/2025 1:15 PM EDT Office Visit [facility] OBGYN PRACTICE [facility] [address] 7th [place] [address] Janice Woodward NP [address] [place] [phone] Scheduled Referrals Name Type Priority Associated Diagnoses Order Schedule Ambulatory referral/appointment with Podiatry Outpatient Referral Routine Left foot pain Expected: 10/27/2024 (Approximate), Expires: 10/27/2025 documented as of this encounter Results * (ABNORMAL) CBC (10/26/2024 1:37 PM EDT) Auto WBC 4.5 3.8 - 11.0 10*3/uL 10/26[facility]2024 [facility] RBC 3.93 3.73 - 5.13 10*6/uL 10/26/2024 4:17 PM [facility] Hemoglobin 13.3 11.2 - 15.3 g/dL 10/26/2024 4:17 PM [facility] Hematocrit 38.5 32.6 - 44.6 % 10/26/2024 4:17 PM [facility] MCV 97.8(H) 78.8 - 96.0 fL 10/26/2024 4:17 PM [facility] MCH 33.9(H) 26.2 - 33.0 pg 10/26/2024 4:17 PM [facility] MCHC 34.6 32.7 - 35.1 g/dL 10/26/2024 4:17 PM [facility] RDW 13.2 12.1 - 16.1 % 10/26/2024 4:17 PM [facility] Platelets 73(L) 138 - 402 10*3/uL 10/26/2024 4:17 PM [facility] MPV 8.8 7.0 - 10.6 fL 10/26/2024 4:17 PM [facility] Blood Venous blood specimen / Unknown Venipuncture / Unknown 10/26/2024 1:37 PM EDT 10/26/2024 1:37 PM EDT us Laquita WELSH LAB BLOOD ORDERABLES Final Re sult [facility] [address] [place] [address], * Uric acid (10/26/2024 1:37 PM EDT) Uric Acid 3 2 - 8 mg/dL 10/26/2024 4:12 PM EDT [facility] Blood Venous blood specimen / Unknown Venipuncture / Unknown 10/26/2024 1:37 PM EDT 10/26/2024 1:37 PM EDT Narrative [facility] - 10/26/2024 4:12 PM EDT Please note possible changes in reference range and units reported due to change in methodology. us Laquita WELSH LAB BLOOD ORDERABLES Final Re sult [facility] [address] [place] [address], documented in this encounter Visit Diagnoses Diagnosis Arthralgia of left foot- Primary Left foot pain Pain in soft tissues of limb documented in this encounter Additional Health Concerns Assessment Noted Time PHQ-9 Depression Total Score: 0 07/24/19 23 3:00 PM EST documented as of this encounter Care Teams Tapper Shank Relationship Specialty Start Date End Date Trevor Rolon DO [address] [facility] [address] [place] [phone] PCP - General Lucy Christopher DO 911 [facility] [place] [address] Consulting Physician Oncology 10/17/24 documented as of this encounter
--- OUTSIDE RECORDS SUMMARY | 2025-05-23 23:26 | XMS_ITS | Encounter Summary ---
Author Organization [facility] nter Address [address] [place] [address] Care Team Providers Care Mattress Filler Name Role Phone Trevor Rolon DO Primary [...] Description 06/18/2025 10:30 AM EST Office Visit [facility] GASTROENTEROLOGY PRACTICE [address] 2nd Floor Clinic [place] [phone] 06/27/2025 10:00 AM EST Office Visit [facility] SLEEP LAB PRACTICE [address] [facility] [place] [phone] Demario Silva DO [address] [place] [address] 08/16/2025 10:00 AM EST Office Visit [facility] ENDOCRINOLOGY PRACTICE [address] 8th Floor [place] [phone] Brigitte Mahoney NP [address] [place] [address] 09/18/2025 1:30 PM EDT Office Visit [facility] RHEUMATOLOGY PRACTICE [address] , 8th Floor [place] [phone] Suman Treviño MD [address] [place] [address]. [place] [address] 12/13/2025 1:15 PM EDT Office Visit [facility] OBGYN PRACTICE [address], 7th [place] [address] Janice Woodward, DEVELOPMENT ADMINISTRATOR [address] [place], [place] [address] documented as of this encounter Visit Diagnoses Not on filedocumented in this encounter Additional Health Concerns Assessment Noted Time PHQ-9 Depression Total Score: 0 07/24/19 23 3:00 PM EST documented as of this encounter Care Teams Mattress Filler Relationship Specialty Start Date End Date Trevor Rolon DO [address] [facility] [address] [place] [address] PCP - General Lucy Christopher DO [address] [place] [address] Consulting Physician Oncology 10/17/24 documented as of this encounter
--- OUTSIDE RECORDS SUMMARY | 2025-05-23 23:26 | XMS_ITS | Encounter Summary ---
Author Organization [facility] Address [address] [place] [address] Care Team Providers Care Tower Air Traffic Control Specialist Name Role Phone Trevor Rolon DO Primary Care Provider Mc Grant DO Unavailable [phone] El Agarwal ELECTRIC INSTALLER Unavailable [phone] Encounter Details Date Type Department Care Team (Late st Contact Info) Description 09/28/2023 Orders Only External Location [address] [place] [phone] Provider, External Social History Tobacco Use Types [...] EST Appointment [facility] G Radiology [address] [place] [address] 05/25/2025 2:00 PM EST Appointment [facility] H Pulmonary Function Testing [address] [place] [address] 05/25/2025 3:30 PM EST Appointment Cardiac Imaging [address] [place] [address] 05/31/2025 4:30 PM EST Appointment PAV Breast [facility] Breast Care [facility] Amandeep Valdes Building [address] [place] [address] 06/12/2025 2:30 PM EST Office Visit [facility] [place] [address] [facility] [address] [place] [address] Juana Gale APRN [address] [place] [address] 06/20/2025 10:30 AM EST Procedure Visit [facility] [address], 1st [place] [address] Claire Davidson MD [address] [place] [address] 06/21/2025 2:00 PM EST Office Visit Professional [facility] [address], [address] [place] [address] Claire Davidson MD [address] [place] [address] 07/17/2025 8:45 AM EST Clinical Support [facility] [address] [place] [address] 07/17/2025 10:30 AM EST Office Visit [facility] [address] [place] [address] Nj Johns MD [address] [place] [address] documented as of this encounter Procedures Procedure Name Priority Date/Time Associated Diagnosis Comments XR MSK OUTSIDE IMAGES 09/28/2023 10:53 AM EDT documented in this encounter Results * XR MSK OUTSIDE IMAGES (09/28/2023 10:53 AM EDT) Anatomical Region Laterality Modality Radiographic Zayda ging 09/28/2023 10:5 3 AM EDT External Provider IMG XR PROCEDURES Final [...] documented as of this encounter Care Teams Tower Air Traffic Control Specialist Relationship Specialty Start Date End Date Trevor Rolon DO [address] [facility] [address] [place] [address] PCP - General 11/22/20 Mc Grant DO [address] [facility] [address] [place] [address] Referring Physician Gastroenterology 02/21/24 El Agarwal APRN [address] [place] [address] Referring Physician Gastroenterology 03/21/25 documented as of this encounter
--- OUTSIDE RECORDS SUMMARY | 2025-05-23 23:26 | XMS_ITS | Encounter Summary ---
Author Organization [facility] nter Address [address] [place] [address] Care Team Providers Care Buffer Copper Name Role Phone Trevor Rolon DO Primary Care Provider Lucy Christopher DO Unavailable Reason for Referral * Consultation (Routine) - Authorized Specialty Diagnoses / Procedures Referred By Truong bella Referred To Contact Hematology Diagnoses Monoclonal gammopathy Procedures CT OFFICE/OUTPATIENT NEW SF MDM [address] OFFICE/OUTPATIENT NEW LOW MDM [address] OFFICE/OUTPATIENT NEW MODERATE MDM [address] OFFICE/OUTPATIENT NEW HIGH MDM [address] OFFICE/OUTPATIENT ESTABLISHED SF MDM [address] OFFICE/OUTPATIENT ESTABLISHED LOW MDM [address] OFFICE/OUTPATIENT ESTABLISHED MOD MDM [address] OFFICE/OUTPATIENT ESTABLISHED HIGH MDM 40 MIN Ben Knox MD [address] [facility] [place] [address] Phone: tel: fax: Referral ID Status Reason Start Date Expiration Date Visits Requested Visits Authorized [id number] Authorized Specialty Services Required 11/17/2024 11/17/2025 1 3 Encounter Details Date Type Department Care Team (Late st Contact Info) Description 11/17/2024 Orders Only [facility] NEUROLOGY PRACTICE [facility] [address], [address] [place] [address] Mary Cobos, CLAU [address] [place] [address] Monoclonal gammopathy (Primary Dx) Social [...] often do you attend [facility] or nondenominational services? More than 4 times [...] Description 06/18/2025 10:30 AM EST Office Visit [facility] GASTROENTEROLOGY PRACTICE [address], 2nd Floor [facility] [place] [address] 06/27/2025 10:00 AM EST Office Visit [facility] SLEEP LAB PRACTICE [address], [facility] [place] [address] Demario Silva DO [address] [place] [address] 08/16/2025 10:00 AM EST Office Visit [facility] ENDOCRINOLOGY PRACTICE [address], 8th [place] [address] Brigitte Mahoney NP [address] [facility] [place] [address] 09/18/2025 1:30 PM EDT Office Visit [facility] RHEUMATOLOGY PRACTICE [address], 8th [place] [address] Suman Treviño MD [address] [place] [address]. [place] [facility] [place] [address] 12/13/2025 1:15 PM EDT Office Visit [facility] OBGYN PRACTICE [address], 7th [place] [address] Janice Woodward NP [address] [place] [address] Scheduled Referrals Name Type Priority Associated Diagnoses Order Schedule Ambulatory referral/appointment with Hematology Outpatient Referral Routine Monoclonal gammopathy Expected: 11/17/2024 (Approximate), Expires: 11/17/2025 documented as of this encounter Visit Diagnoses Diagnosis Monoclonal gammopathy- Primary Monoclonal paraproteinemia documented in this encounter Additional Health Concerns Assessment Noted Time PHQ-9 Depression Total Score: 0 07/24/19 23 3:00 PM EST documented as of this encounter Care Teams Buffer Copper Relationship Specialty Start Date End Date Trevor Rolon DO [address] [facility] [address] [place] [address] PCP - General Lucy Christopher DO [address] [place] [address] [place] [address] Consulting Physician Oncology 10/17/24 documented as of this encounter
--- OUTSIDE RECORDS SUMMARY | 2025-05-23 23:26 | XMS_ITS | Encounter Summary ---
Author Organization [facility] nter Address [address] [place] [address] Care Team Providers Care Elementary Ell Teacher Name Role Phone Trevor Rolon DO Primary Care Provider Lucy Christopher DO Unavailable Encounter Details Date Type Department Care Team (Late st Contact Info) Description 09/01/2024 Orders Only [facility] ENDOCRINOLOGY PRACTICE [address], 8th [place] [address] Brigitte Mahoney, CLAU [address] [place] [address] Social History Tobacco Use Types [...] Description 06/18/2025 10:30 AM EST Office Visit [facility] GASTROENTEROLOGY PRACTICE [address] 2nd [place] [address] 06/27/2025 10:00 AM EST Office Visit [facility] SLEEP LAB PRACTICE [address] [place] [address] Demario Silva DO [address] [place] [address] 08/16/2025 10:00 AM EST Office Visit [facility] ENDOCRINOLOG[facility] PRACT[facility] [address] 8th [place] [address] Brigitte Mahoney NP 1 [place] [address] 09/18/2025 1:30 PM EDT Office Visit [facility] RHEUMATOLOGY PRACTICE [address] 8th [place] [address] Suman Treviño MD [address] [place] [address] 12/13/2025 1:15 PM EDT Office Visit [facility] OBGYN PRACTICE [address], 7th Floor Clinic [place] [address] Janice Woodward, CLAU [address] [place] [address] documented as of this encounter Visit Diagnoses Not on filedocumented in this encounter Additional Health Concerns Assessment Noted Time PHQ-9 Depression Total Score: 0 07/24/19 23 3:00 PM EST documented as of this encounter Care Teams Elementary Ell Teacher Relationship Specialty Start Date End Date Trevor Rolon DO [address] [facility] [address] [place] [phone] PCP - General Lucy Christopher DO [address] [place] [address] Consulting Physician Oncology 10/17/24 documented as of this encounter
--- OUTSIDE RECORDS SUMMARY | 2025-05-23 23:26 | XMS_ITS | Encounter Summary ---
Author Organization [facility] nter Address [address] [place] [address] Care Team Providers Care Regional Wildlife Agent Name Role Phone Trevor Rolon DO Primary Care Provider Lucy Christopher DO Unavailable Reason for Visit * Reason Onset Date Comments vaginal swab 03/26/2025 Encounter Details Date Type Department Care Team (Late st Contact Info) Description 03/26/2025 Telephone [facility] O[facility]YN [facility]ACT[facility] [address], 7th Floor Clinic [place] [phone] Janice Woodward, CLAU [address] [place] [address] vaginal swab Social History Tobacco Use Types [...] Description 06/18/2025 10:30 AM EST Office Visit [facility] GASTROENTEROLOGY PRACTICE [address], 2nd [place] [address] 06/27/2025 10:00 AM EST Office Visit [facility] SLEEP LAB PRACTICE [address], [place] [address] Demario Silva DO [address] [place] [address] 08/16/2025 10:00 AM EST Office Visit [facility] ENDOCRINOLOGY PRACTICE [address], 8th Floor Clinic [place] [address] Brigitte Mahoney NP [address] [place] [address] 09/18/2025 1:30 PM EDT Office Visit [facility] RHEUMATOLOGY PRACTICE [address], 8th Floor [facility] [place] [address] Suman Treviño MD [address] [place] [address] 12/13/2025 1:15 PM EDT Office Visit [facility] OBGYN PRACTICE [address], 7th Floor [facility] [place] [address] Janice Woodward NP [address] [place] [address] documented as of this encounter Visit Diagnoses Not on filedocumented in this encounter Additional Health Concerns Assessment Noted Time PHQ-9 Depression Total Score: 0 07/24/19 23 3:00 PM EST documented as of this encounter Care Teams Regional Wildlife Agent Relationship Specialty Start Date End Date Trevor Rolon DO [address] [facility] [address] [place] [address] PCP - General Lucy Christopher DO [address] [facility] [place] [phone] Consulting Physician Oncology 10/17/24 documented as of this encounter
--- OUTSIDE RECORDS SUMMARY | 2025-05-23 23:26 | XMS_ITS | Encounter Summary ---
Author Organization [facility] nter Address [address] [place] [address] Care Team Providers Care Foundry Metallurgist Name Role Phone Trevor Rolon DO Primary Care Provider Lucy Christopher DO Unavailable Reason for Referral * Imaging (Routine) - Closed Specialty Diagnoses / Procedures Referred By Conttrudy bella Referred To Contact Cardiology Diagnoses PAD (peripheral artery disease) Procedures US arterial doppler bilateral lower ext Vascular US lower extremity arterial Doppler complete Ben Knox MD [address] [place] [address] Phone: tel: fax: [facility] CARDIAC DIAGNOSTIC [address], 1st [place] [address] Phone: tel: fax: Referral ID Status Reason Start Date Expiration Date V isits Requested Visits Authorized [id number] Closed Perform Procedure 11/15/2024 11/15/2025 1 1 Encounter Details Date Type Department Care Team (Late st Contact Info) Description 11/15/2024 Orders Only [facility] NEUROLOGY PRACTICE [address] [address] Ben Knox MD [address] [place] [address] PAD (peripheral artery disease) (Primary [...] do you attend [facility] or [facility]? More than 4 times [...] Description 06/18/2025 10:30 AM EST Office Visit [facility] GASTROENTEROLOGY PRACTICE [address], 2nd [place] [address] 06/27/2025 10:00 AM EST Office Visit [facility] SLEEP LAB PRACTICE [address], [facility] [place] [address] Demario Silva DO [address] [place] [address] 08/16/2025 10:00 AM EST Office Visit [facility] ENDOCRINOLOGY PRACTICE [address], 8th [place] [address] Brigitte Mahoney NP [address] [facility] [place] [address] 09/18/2025 1:30 PM EDT Office Visit [facility] RHEUMATOLOGY PRACTICE [address], 8th Floor [facility] [place] [address] Suman Treviño MD [address] [facility] [place] [address] 12/13/2025 1:15 PM EDT Office Visit [facility] OBGYN PRACTICE [address], 7th Floor [facility] [place] [address] Janice Woodward NP [address] [place] [phone] documented as of this encounter Results * [...] Dsouza MD 11/15/2024 02:41 PM EDT RPWorkstation: [id number] Ben Knox MD [facility] US PROCEDURES Final Result documented in this encounter Visit Diagnoses Diagnosis PAD (peripheral artery disease)- Primary Unspecified peripheral vascular disease PAD (peripheral artery disease) Unspecified peripheral vascular disease documented in this encounter Additional Health Concerns Assessment Noted Time PHQ-9 Depression Total Score: 0 07/24/19 23 3:00 PM EST documented as of this encounter Care Teams Foundry Metallurgist Relationship Specialty Start Date End Date Trevor Rolon DO [address] [facility] [address] [place], [place] [phone] PCP - General Lucy Christopher DO 911 [place] [address] Consulting Physician Oncology 10/17/24 documented as of this encounter
--- OUTSIDE RECORDS SUMMARY | 2025-05-23 23:26 | XMS_ITS | Encounter Summary ---
Author Organization [facility] Address [address] [place] [address] Care Team Providers Care Commercial Agent Name Role Phone Trevor Rolon DO Primary Care Provider [phone] Mc Grant DO Unavailable [phone] El Agarwal HOT PUNCH PRESS OPERATOR Unavailable [phone] Encounter Details Date Type Department Care Team (Late Contact Info) Description 04/28/2024 Orders Only External Location [address] [place] [address] Provider, External Social History Tobacco Use Types [...] EST Appointment [facility] R[facility] Radiology [address] [place] [address] 05/25/2025 2:00 PM EST Appointment LOIS Astorga Pulmonary Function Testing [address] [place] [address] 05/25/2025 3:30 PM EST Appointment Cardiac Imaging [address] [place] [address] 05/31/2025 4:30 PM EST Appointment [facility] Amandeep Valdes Building [address] [place] [address] 06/12/2025 2:30 PM EST Office Visit [facility] [place] [address] [facility], [address] [place] [address] Juana Gale, HOT PUNCH PRESS OPERATOR [address] [place] [address] 06/20/2025 10:30 AM EST Procedure Visit [facility] [address], 1st [place] [address] Claire Davidson MD [address] [facility]01 [place] [address] 06/21/2025 2:00 PM EST Office Visit [facility] [address] [facility], [address] [place] [address] Claire Davidson MD [address] [facility] [place] [address] 07/17/2025 8:45 AM EST Clinical Support [facility] Transplant Center [address] [address] 07/17/2025 10:30 AM EST Office Visit [facility] Transplant [place] [address] [address] Nj Johns MD [address] [place] [address] documented as of this encounter [...] as of this encounter Care Teams Commercial Agent Relationship Specialty Start Date End Date Trevor Rolon DO [address] [facility] 201 [place] [address] PCP - General 11/22/20 Mc Grant DO [address] [facility] 201 [place] [address] Referring Physician Gastroenterology 02/21/24 El Agarwal APRN [address] [place] [address] Referring Physician Gastroenterology 03/21/25 documented as of this encounter
--- OUTSIDE RECORDS SUMMARY | 2025-05-23 23:26 | XMS_ITS | Encounter Summary ---
Author Organization [facility] nter Address [address] [place] [address] Care Team Providers Care Insert Operator Name Role Phone Trevor Rolon DO Primary Care Provider Lucy Christopher DO Unavailable Encounter Details Date Type Department Care Team (Late st Contact Info) Description 04/06/2025 Abstract [facility] [address], 2nd Floor Clinic [place] [id number] El Agarwal, KNOT BORER [address], [place] [address] Social History Tobacco Use Types Packs/Day Years [...] How often do you attend chur or sabianist services? More than 4 times per year [...] Description 06/18/2025 10:30 AM EST Office Visit [facility] GASTROENTEROLOGY PRACTICE [address] 2nd [place] [address] 06/27/2025 10:00 AM EST Office Visit [facility]EP [facility] [address] [place] [address] Demario Silva DO 1 [place] [address] 08/16/2025 10:00 AM EST Office Visit [facility] ENDOCRIN[facility] [address] 8th [place] [address] Brigitte Mahoney NP 1 [place] [address] 09/18/2025 1:30 PM EDT Office Visit [facility]HEUMAT[facility] [address] 8th [place] [address] Suman Treviño MD [address] [place] [address] 12/13/2025 1:15 PM EDT Office Visit [facility] OBGYN [facility] [address], 7th Floor Clinic [place] [address] Janice Woodward, CLAU [address] [place] [facility] [place] documented as of this encounter Visit Diagnoses Not on filedocumented in this encounter Additional Health Concerns Assessment Noted Time PHQ-9 Depression Total Score: 0 07/24/19 23 3:00 PM EST documented as of this encounter Care Teams Insert Operator Relationship Specialty Start Date End Date Trevor Rolon DO [address] [facility] [address] [place] [address] PCP - General Lucy Christopher DO [address] [place] [address] Consulting Physician Oncology 10/17/24 documented as of this encounter
--- OUTSIDE RECORDS SUMMARY | 2025-05-23 23:26 | XMS_ITS | Encounter Summary ---
Author Organization [facility] Address [address] [place] [address] Care Team Providers Care Manager Field Sales Name Role Phone Trevor Rolon DO Primary Care Provider Mc Grant DO Unavailable [phone] El Agarwal B2B SALES REPRESENTATIVE Unavailable [phone] Encounter Details Date Type Department Care Team (Late st Contact Info) Description 05/21/2025 Results Follow-Up [facility] [address] [facility], [address] [place] [address] Claire Davidson MD [address] [facility] [address] [place] [address] Social History Tobacco Use Types Packs/Day Years [...] encounter Miscellaneous Notes * Telephone Encounter - Claire Davidson MD - 05/21/2025 9:20 AM EST Discussed MRI cervical spine results. Patient has Neurosurgery appointment for tomorrow 05/23. Clarie Davidson MD Acoustic Engineer, Department of Neurology Neuromuscular Medicine Program documented in this encounter Plan of Treatment Upcoming Encounters Date Type Department Care Team (Late st Contact Info) Description 05/25/2025 11:30 AM EST Appointment LOIS G Radiology [address] [place] [address] 05/25/2025 2:00 PM EST Appointment PAV H Pulmonary Function Testing [address] [place] [address] 05/25/2025 3:30 PM EST Appointment Cardiac Imaging [address] [place] [address] 05/31/2025 4:30 PM EST Appointment [facility] [address] [place] [address] 06/12/2025 2:30 PM EST Office Visit [facility] [place] [address] [facility], [address] [place] [address] Juana Gale APRN [address] [place] [address] 06/20/2025 10:30 AM EST Procedure [place] [facility] [address], 1st [place] [address] Claire Davidson MD [address] [place] [address] 06/21/2025 2:00 PM EST Office Visit [facility] Special[facility] Care Clinic [address] [facility], [address] [place] [address] Claire Davidson MD [address] [place] [address] 07/17/2025 8:45 AM EST Clinical Support [facility] Transplant [place] [address] [place] [address] 07/17/2025 10:30 AM EST Office Visit [facility] Transplant [place] [address] [place] [address] Nj Johns MD [address] [place] [address] documented as of this encounter [...] as of this encounter Care Teams Manager Field Sales Relationship Specialty Start Date End Date Trevor Rolon DO [address] [facility] 201 [place] [address] PCP - General 11/22/20 Mc Grant DO [address] [facility] 201 [place] [address] Referring Physician Gastroenterology 02/21/24 El Agarwal APRN [address] [place] [address] Referring Physician Gastroenterology 03/21/25 documented as of this encounter
--- OUTSIDE RECORDS SUMMARY | 2025-05-23 23:26 | XMS_ITS | Encounter Summary ---
Author Organization [facility] nter Address [address] [place] [address] Care Team Providers Care Supervisor Assembly Room Name Role Phone Trevor Rolon DO Primary Care Provider Lucy Christopher DO Unavailable Encounter Details Date Type Department Care Team (Late st Contact Info) Description 03/28/2025 Results Follow-Up [facility] OBSTETRICS/GYNECOLOG Y UNIT [address], 4th [place] [address] Janice Woodward, PROGRAMMING EQUIPMENT OPERATOR [address] [place] [address] Vaginitis Panel, C. trachomatis / N. gonorrhoeae, [...] 07/24/2022 How often do you attend [facility] or yazidism services? More than 4 times [...] Description 06/18/2025 10:30 AM EST Office Visit [facility] GASTROENTEROLOGY PRACTICE [address] [facility], 2nd [place] [address] 06/27/2025 10:00 AM EST Office Visit [facility] SLEEP LAB PRACTICE [address] [place] [phone] Demario Silva DO [address] [place] [address] 08/16/2025 10:00 AM EST Office Visit [facility] ENDOCRINOLOGY PRACTICE [address] [place] [address], 8th [place] [address] Brigitte Mahoney NP [address] [place] [address] 09/18/2025 1:30 PM EDT Office Visit [facility] RHEUMATOLOGY PRACTICE [address], 8th Floor Clinic [facility] [address] Suman Treviño MD [address] [facility]. Katie [facility] [place] [address] 12/13/2025 1:15 PM EDT Office Visit [facility] OBGYN PRACTICE [address], 7th Floor Clinic [facility] [address] Janice Woodward, CLAU [address] [place] [address] documented as of this encounter Visit Diagnoses Not on filedocumented in this encounter Additional Health Concerns Assessment Noted Time PHQ-9 Depression Total Score: 0 07/24/19 23 3:00 PM EST documented as of this encounter Care Teams Supervisor Assembly Room Relationship Specialty Start Date End Date Trevor Rolon DO [address] [facility] [address] [facility] [id number] PCP - General uLcy Christopher DO [address] [facility] [place] [address] Consulting Physician Oncology 10/17/24 documented as of this encounter
--- OUTSIDE RECORDS SUMMARY | 2025-05-23 23:26 | XMS_ITS | Encounter Summary ---
Author Organization [facility] Address [address] [place] [address] Care Team Providers Care Pension Fund Manager Name Role Phone Trevor Rolon DO Primary Care Provider Mc Grant DO Unavailable [phone] El Agarwal BARREL LINE OPERATOR Unavailable [phone] Encounter Details Date Type Department Care Team (Late Contact Info) Description 08/16/2024 Orders Only External Location [address] [place] [address] Provider, External Social History Tobacco Use Types [...] EST Appointment [facility] R[facility] Radiology [address] [place] [address] 05/25/2025 2:00 PM EST Appointment LOIS Astorga Pulmonary Function Testing [address] [place] [address] 05/25/2025 3:30 PM EST Appointment Cardiac Imaging [address] [place] [address] 05/31/2025 4:30 PM EST Appointment [facility] Comprehensive Breast Care Center [facility] Amandeep Valdes Building 800 [place] [address] 06/12/2025 2:30 PM EST Office Visit [facility] [place] [address] [facility], [address] [place] [address] Juana Gale, BARREL LINE OPERATOR [address] [place] [address] 06/20/2025 10:30 AM EST Procedure Visit [facility] [address], 1st [place] [address] Claire Davidson MD [address] [facility]01 [place] [address] 06/21/2025 2:00 PM EST Office Visit [facility] [address] [facility], [address] [place] [address] Claire Davidson MD [address] [facility]01 [place] [address] 07/17/2025 8:45 AM EST Clinical Support [facility] Transplant Center [address] [address] 07/17/2025 10:30 AM EST Office Visit [facility] Transplant [place] [address] [address] Nj Johns MD [address] [place] [address] documented as of this encounter [...] documented as of this encounter Care Teams Pension Fund Manager Relationship Specialty Start Date End Date Trevor Rolon DO [address] [facility] 201 [place], [place] [address] PCP - General 11/22/20 Mc Grant DO [address] [facility] 201 [place] [address] Referring Physician Gastroenterology 02/21/24 El Agarwal APRN [address] [place] [address] Referring Physician Gastroenterology 03/21/25 documented as of this encounter
--- OUTSIDE RECORDS SUMMARY | 2025-05-23 23:26 | XMS_ITS | Encounter Summary ---
Author Organization [facility] nter Address [address] [place] [address] Care Team Providers Care Delivery Professional Name Role Phone Trevor Rooln DO Primary Care Provider Lucy Christopher DO Unavailable Reason for Referral * Consultation (Routine) - Authorized Specialty Diagnoses / Procedures Referred By Truong bella Referred To Contact Sleep Medicine Diagnoses Excessive daytime sleepiness Procedures NH OFFICE/OUTPATIENT NEW SF MDM 15 MINUTES NH OFFICE/OUTPATIENT NEW LOW MDM 30 MINUTES NH OFFICE/OUTPATIENT NEW MODERATE MDM 45 MINUTES NH OFFICE/OUTPATIENT NEW HIGH MDM 60 MINUTES NH OFFICE/OUTPATIENT ESTABLISHED SF MDM 10 MIN NH OFFICE/OUTPATIENT ESTABLISHED LOW MDM 20 MIN NH OFFICE/OUTPATIENT ESTABLISHED MOD MDM 30 MIN NH OFFICE/OUTPATIENT ESTABLISHED HIGH MDM 40 MIN Laquita Corral PA [address] [facility] [address] [place] [address] Phone: tel: fax: [facility] SLEEP LAB PRACTICE [address], 9th [place] [address] Phone: tel: fax: Referral ID Status Reason Start Date Expiration Date Visits Requested Visits Authorized [id number] Authorized Specialty Services Required 11/23/2024 11/23/2025 1 3 Encounter Details Date Type Department Care Team (Late st Contact Info) Description 11/23/2024 Community Orders EpicCare Link [address] [facility] [place] [address] Laquita Corral PA [address] [facility] [address] [place] [address] Excessive daytime sleepiness (Primary Dx) Social History [...] How often do you attend [facility] or rastafari services? More than 4 [...] Description 06/18/2025 10:30 AM EST Office Visit [facility] GASTROENTEROLOGY PRACTICE [address], 2nd [place] [address] 06/27/2025 10:00 AM EST Office Visit [facility] SLEEP LAB PRACTICE [address], [place] [address] Demario Silva DO [address] [place] [address] 08/16/2025 10:00 AM EST Office Visit [facility] ENDOCRINOLOGY PRACTICE [address], 8th [place] [address] Brigitte Mahoney NP [address] [facility] [place] [address] 09/18/2025 1:30 PM EDT Office Visit [facility] RHEUMATOLOGY PRACTICE [address], 8th [place] [address] Suman Treviño MD [address] [facility] [place] [address] 12/13/2025 1:15 PM EDT Office Visit [facility] OBGYN PRACTICE [address], 7th [place] [address] Janice Woodward NP [address] [place] [phone] Scheduled Referrals Name Type Priority Associated Diagnoses [...] documented as of this encounter Care Teams Delivery Professional Relationship Specialty Start Date End Date Trevor Rolon DO [address] [facility] [address] [place] [address] PCP - General Lucy Christopher DO 1 [facility] [place] [address] Consulting Physician Oncology 10/17/24 documented as of this encounter
--- OUTSIDE RECORDS SUMMARY | 2025-05-23 23:26 | XMS_ITS | Encounter Summary ---
Author Organization [facility] Address [address] [place] [address] Care Team Providers Care Delivery Engineer Name Role Phone Trevor Rolon DO Primary Care Provider Mc Grant DO Unavailable [phone] El Agarwal RETIREMENT PLAN SPECIALIST Unavailable [phone] Encounter Details Date Type Department Care Team (Late st Contact Info) Description 10/24/2023 Orders Only External Location [address] [place] [address] Provider, External Social History Tobacco Use Types [...] EST Appointment P[facility] G Radiology [address] [place] [address] 05/25/2025 2:00 PM EST Appointment PAV H Pulmonary Function Testing [address] [place] [address] 05/25/2025 3:30 PM EST Appointment Cardiac Imaging [address] [place] [address] 05/31/2025 4:30 PM EST Appointment PAV Breast [facility] Breast Care [facility] Amandeep Valdes Building [address] [place] [address] 06/12/2025 2:30 PM EST Office Visit [facility] [place] [address] [facility], [address] [place] [address] Juana Gale APRN [address] [place] [address] 06/20/2025 10:30 AM EST Procedure Visit [facility] [address], 1st [place] [address] Claire Davidson MD [address] [place] [address] 06/21/2025 2:00 PM EST Office Visit [facility] Specialty Care Clinic [address] [facility], [address] [place] [address] Claire Davidson MD [address] [place] [address] 07/17/2025 8:45 AM EST Clinical Support [facility] Transplant Center [address] [place] [address] 07/17/2025 10:30 AM EST Office Visit [facility] Transplant Center [address] [place] [address] Nj Johns MD [address] [place] [address] documented as of this encounter Procedures Procedure Name Priority Date/Time Associated Diagnosis Comments CT OUTSIDE IMAGES 10/24/2023 5:58 PM EDT documented in this encounter Results * CT OUTSIDE IMAGES (10/24/2023 5:58 PM EDT) Anatomical Region Laterality Modality Computed Tomogra phy 10/24/2023 5:58 PM EDT External Provider IMG CT PROCEDURES Final Result [...] as of this encounter Care Teams Delivery Engineer Relationship Specialty Start Date End Date Trevor Rolon DO [address] [facility] 201 [place] [address] PCP - General 11/22/20 Mc Grant DO [address] [facility] 201 [place] [address] Referring Physician Gastroenterology 02/21/24 El Agarwal APRN [address] [place] [address] Referring Physician Gastroenterology 03/21/25 documented as of this encounter
--- OUTSIDE RECORDS SUMMARY | 2025-05-23 23:26 | XMS_ITS | Encounter Summary ---
Author Organization [facility] nter Address [address] [place] [address] Care Team Providers Care Hearing Aid Repairer Name Role Phone Trevor Rolon DO Primary Care Provider Lucy Christopher DO Unavailable Reason for Referral * Consultation (Routine) - Authorized Specialty Diagnoses / Procedures Referred By Truong bella Referred To Contact Rheumatology Diagnoses Psoriatic arthritis Procedures AL OFFICE/OUTPATIENT NEW SF MDM 15 MINUTES AL OFFICE/OUTPATIENT NEW LOW MDM 30 MINUTES AL OFFICE/OUTPATIENT NEW MODERATE MDM 45 MINUTES AL OFFICE/OUTPATIENT NEW HIGH MDM 60 MINUTES AL OFFICE/OUTPATIENT ESTABLISHED SF MDM 10 MIN AL OFFICE/OUTPATIENT ESTABLISHED LOW MDM 20 MIN AL OFFICE/OUTPATIENT ESTABLISHED MOD MDM 30 MIN AL OFFICE/OUTPATIENT ESTABLISHED HIGH MDM 40 MIN Laquita Corral PA [address] [facility] [address] [place] [address] Phone: tel: fax: Suman Treviño MD [address] [place] [address] Phone: tel: fax: Referral ID Status Reason Start Date Expiration Date Visits Requested Visits Authorized [id number] Authorized Specialty Services Required 09/01/2024 09/01/2025 1 3 Encounter Details Date Type Department Care Team (Late st Contact Info) Description 09/01/2024 Community Orders EpicCare Link [address] [place] [address] Laquita Corral PA [address] [facility] [address] [place] [address] Psoriatic arthritis (Primary Dx) Social History Tobacco [...] week 07/24/2022 How often do you attend [facility] or yazidi services? More than 4 times per year 07/24/2022 Do you belong to any clubs o r organizations such as religion groups, unions, fraternal or athletic groups, or [...] PRACTICE [address], 2nd [place] [address] 06/27/2025 10:00 AM EST Office Visit [facility] SLEEP LAB PRACTICE [address], [facility] [place] [place] [address] Demario Silva DO [address] [place] [address] 08/16/2025 10:00 AM EST Office Visit [facility] ENDOCRINOLOGY PRACTICE [address], 8th [place] [address] Brigitte Mahoney NP [address] [facility] [place] [address] 09/18/2025 1:30 PM EDT Office Visit [facility] RHEUMATOLOGY PRACTICE [address], 8th [place] [address] Suman Treviño MD [address] [facility]. [place] [address] 12/13/2025 1:15 PM EDT Office Visit [facility] OBGYN PRACTICE [address], 7th [place] [address] Janice Woodward NP [address] [place] [phone] Scheduled Referrals Name Type Priority Associated Diagnoses [...] as of this encounter Care Teams Hearing Aid Repairer Relationship Specialty Start Date End Date Trevor Rolon DO [address] [facility] [address] [place] [address] PCP - General Lucy Christopher DO 911 [facility] [place] [address] Consulting Physician Oncology 10/17/24 documented as of this encounter
--- OUTSIDE RECORDS SUMMARY | 2025-05-23 23:26 | XMS_ITS | Encounter Summary ---
Author Organization [facility] Address [address] [place] [address] Care Team Providers Care Nut Sheller Name Role Phone Trevor Rolon DO Primary Care Provider Mc Grant DO Unavailable [phone] El Agarwal ROTARY DUMP OPERATOR Unavailable [phone] Encounter Details Date Type Department Care Team (Late st Contact Info) Description 05/18/2025 Refill [facility] [address] [facility] [address] [place] [id number] Madyson Sarabia, RN HOSPITAL LIVER [id number] [address] [place] [address] Social History Tobacco Use Types [...] Upcoming Encounters Date Type Department Care Team ([facility] st Contact Info) Description 05/25/2025 11:30 AM EST Appointment [facility] G Radiology [address] [place] [address] 05/25/2025 2:00 PM EST Appointment P[facility] H Pulmonary Function Testing 800 [place] [address] 05/25/2025 3:30 PM EST Appointment Cardiac Imaging [address] [place] [address] 05/31/2025 4:30 PM EST Appointment [facility] [address] [facility] [address] [place] [address] 06/12/2025 2:30 PM EST Office Visit [facility] [place] [address] [facility], [address] [place] [address] Juana Gale, ROTARY DUMP OPERATOR [address] [place] [address] 06/20/2025 10:30 AM EST Procedure Visit [facility] [address], 1st [place] [address] Claire Davidson MD [address] [place] [address] 06/21/2025 2:00 PM EST Office Visit [facility] [address], [address] [place] [address] Claire Davidson MD [address] [facility] [address] [place] [address] 07/17/2025 8:45 AM EST Clinical Support [facility] [address] [facility] [address] [place] [address] 07/17/2025 10:30 AM EST Office Visit [facility] [address] [place] [address] Nj Johns MD [address] [place] [address] documented as of this encounter Visit Diagnoses [...] documented as of this encounter Care Teams Nut Sheller Relationship Specialty Start Date End Date Trevor Rolon DO [address] [facility] 201 [place] [address] PCP - General 11/22/20 Mc Grant DO [address] [facility] 201 [place] [address] Referring Physician Gastroenterology 02/21/24 El Agarwal APRN [address] [place] [address] Referring Physician Gastroenterology 03/21/25 documented as of this encounter
--- OUTSIDE RECORDS SUMMARY | 2025-05-23 23:26 | XMS_ITS | Encounter Summary ---
Author Organization [facility] Address [address] [place] [address] Care Team Providers Care Global Analytics Head Name Role Phone Trevor Rolon DO Primary Care Provider Mc Grant DO Unavailable [phone] El Agarwal SMOKE CONTROL SUPERVISOR Unavailable [phone] Encounter Details Date Type Department Care Team (Late st Contact Info) Description 03/01/2023 Orders Only External Location [address] [place] [id number] Provider, External Social History Tobacco Use Types [...] EST Appointment [facility] G Radiology [address] [place] [address] 05/25/2025 2:00 PM EST Appointment [facility] H Pulmonary Function Testing [address] [place] [address] 05/25/2025 3:30 PM EST Appointment Cardiac Imaging [address] [place] [address] 05/31/2025 4:30 PM EST Appointment P[facility] Breast [facility] [address] [place] [address] 06/12/2025 2:30 PM EST Office Visit [facility] [place] [address] [facility], [address] [place] [address] Juana Gale APRN [address] [place] [address] 06/20/2025 10:30 AM EST Procedure Visit [facility] [address], 1st [place] [address] Claire Davidson MD [address] [place] [address] 06/21/2025 2:00 PM EST Office Visit [facility] [address] [facility], [address] [place] [address] Claire Davidson MD [address] [place] [address] 07/17/2025 8:45 AM EST Clinical Support [facility] Transplant [facility] [address] [place] [address] 07/17/2025 10:30 AM EST Office Visit [facility] [address] [place] [address] Nj Johns MD [address] [place] [address] documented as of this encounter Procedures Procedure [...] documented as of this encounter Care Teams Global Analytics Head Relationship Specialty Start Date End Date Trevor Rolon DO [address] [facility] 201 [place] [address] PCP - General 11/22/20 Mc Grant DO [address] [facility] 201 [place] [address] Referring Physician Gastroenterology 02/21/24 El Agarwal APRN [address] [place] [address] Referring Physician Gastroenterology 03/21/25 documented as of this encounter
--- OUTSIDE RECORDS SUMMARY | 2025-05-23 23:27 | XMS_ITS | Encounter Summary ---
Author Organization [facility] Address [address] [place] [address] Care Team Providers Care Active Directory Administrator Name Role Phone Trevor Rolon DO Primary Care Provider [phone] Mc Grant DO Unavailable [phone] El Agarwal REMNANTS CUTTER Unavailable [phone] Reason for Visit * Reason Comments Appointment Confirmation and rem inders Encounter Details Date Type Department Care Team (Late st Contact Info) Description 03/28/2025 Telephone [facility] [address] [facility] [address] [place] [address] Sharri Almonte [address] [place] [phone] Appointment (Confirmation and reminders) Social History Tobacco [...] Upcoming Encounters Date Type Department Care Team ([facility] Contact Info) Description 05/25/2025 11:30 AM EST Appointment P[facility] G Radiology [address] [place] [address] 05/25/2025 2:00 PM EST Appointment [facility] Pulmonary Function Testing [address] [place] [address] 05/25/2025 3:30 PM EST Appointment Cardiac Imaging [address] [place] [address] 05/31/2025 4:30 PM EST Appointment [facility] [address] [place] [address] 06/12/2025 2:30 PM EST Office Visit [facility] [place] [address] [facility], [address] [place] [address] Juana Gale APRN [address] [place] [address] 06/20/2025 10:30 AM EST Procedure Visit [place] [facility] [address], 1st [place] [address] Claire Davidson MD [address] [place] [address] 06/21/2025 2:00 PM EST Office Visit [facility] [address] [facility], [address] [place] [address] Claire Davidson MD [address] [place] [address] 07/17/2025 8:45 AM EST Clinical Support [facility] [place] [address] [place] [address] 07/17/2025 10:30 AM EST Office Visit [facility] [place] [address] [place] [address] Nj Johns MD [address] [place] [address] documented as of this [...] documented as of this encounter Care Teams Active Directory Administrator Relationship Specialty Start Date End Date Trevor Rolon DO [address] [facility] 201 [place] [address] PCP - General 11/22/20 Mc Grant DO [address] [facility] 201 [place] [address] Referring Physician Gastroenterology 02/21/24 El Agarwal APRN [address] [place] [address] Referring Physician Gastroenterology 03/21/25 documented as of this encounter
--- OUTSIDE RECORDS SUMMARY | 2025-05-23 23:27 | XMS_ITS | Encounter Summary ---
Author Organization [facility] Address [address] [place] [address] Care Team Providers Care Street Commissioner Name Role Phone Trevor Rolon DO Primary Care Provider Lucy Christopher DO Unavailable Reason for Visit * Reason Comments Med Refill Encounter Details Date Type Department Care Team (Late st Contact Info) Description 10/05/[address] [facility] GASTROENTEROLOGY PRACTICE [address], 2nd [place] [address] Mc Grant DO [address] [place] [place] [address] Encephalopathy, hepatic Social History Tobacco [...] any clubs o r organizations such as congregational groups, unions, fraternal or athletic groups, or [...] PRACTICE [address], 2nd [place] [address] 06/27/2025 10:00 AM EST Office Visit [facility] SLEEP LAB PRACTICE [address], [place] [address] Demario Silva DO [address] [place] [address] 08/16/2025 10:00 AM EST Office Visit [facility] ENDOCRINOLOGY PRACTICE [address], 8th Floor [facility] [place] [address] Brigitte Mahoney NP [address] [facility] [place] [address] 09/18/2025 1:30 PM EDT Office Visit [facility] RHEUMATOLOGY PRACTICE [address], 8th Floor [facility] [place] [address] Suman Treviño MD [address] [facility]. [place] [address] 12/13/2025 1:15 PM EDT Office Visit [facility] OBGYN PRACTICE [address], 7th Floor [facility] [place] [address] Janice Woodward NP [address] [place] [address] documented as of this encounter Visit Diagnoses Diagnosis Encephalopathy, hepatic Hepatic encephalopathy documented in this encounter Additional Health Concerns Assessment Noted Time PHQ-9 Depression Total Score: 0 07/24/19 23 3:00 PM EST documented as of this encounter Care Teams Street Commissioner Relationship Specialty Start Date End Date Trevor Rolon DO [address] [facility] [address] [place] [address] PCP - General Lucy Christopher DO [address] [facility] [place] [address] Consulting Physician Oncology 10/17/24 documented as of this encounter
--- OUTSIDE RECORDS SUMMARY | 2025-05-23 23:27 | XMS_ITS | Encounter Summary ---
Author Organization [facility] Address [address] [place] [address] Care Team Providers Care Supervisor Sewing Department Name Role Phone Trevor Rolon DO Primary Care Provider Mc Grant DO Unavailable [phone] El Agarwal STAFFING RN Unavailable [phone] Reason for Visit * Reason Onset Date Comments [facility] Same Day Appt/Overbook Request 04/05/2025 OVERBOOK Encounter Details Date Type Department Care Team (Late st Contact Info) Description 04/05/2025 Telephone [facility] [address] [place] [address] [facility] Same Day Appt/Overbook Request [...] live alone and will be moving to [place] to live with her sister. Pts sister is pt of A CYDNEY Alvarez and pt is asking to become a pt with her as well. Please call pt to discuss Best contact number: [phone] (mobile) Optimal time of day to reach caller: ANYTIME Additional comments/information from caller: none Note: Please do not reply to this message. Follow-up communication and further actions as a result of this message need to be communicated with the patient directly, if the patient is not active onMyChart. If the patient is active on MyChart, they will receive notification of the communication/outcome via [employer]. documented in this encounter Plan of Treatment Upcoming Encounters Date Type Department Care Team (Late st Contact Info) Description 05/25/2025 11:30 AM EST Appointment [facility] G Radiology [address] [place] [address] 05/25/2025 2:00 PM EST Appointment PAV H Pulmonary Function Testing [address] [place] [address] 05/25/2025 3:30 PM EST Appointment Cardiac Imaging [address] [place] [address] 05/31/2025 4:30 PM EST Appointment [facility] [address] 800 [place] [address] 06/12/2025 2:30 PM EST Office Visit [facility] [place] [address] [facility], [address] [place] [address] Juana Gale, STAFFING RN [address] [place] [address] 06/20/2025 10:30 AM EST Procedure Visit [facility] [address], 1st [place] [address] Claire Davidson MD [address] [place] [address] 06/21/2025 2:00 PM EST Office Visit [facility] [address] [facility], [address] [place] [address] Claire Davidson MD [address] [place] [address] 07/17/2025 8:45 AM EST Clinical Support [facility] Transplant Center [address] [place] [address] 07/17/2025 10:30 AM EST Office Visit [facility]plant [facility] [address] [place] [address] Nj Johns MD [address] [place] [address] documented as of this encounter Visit Diagnoses [...] as of this encounter Care Teams Supervisor Sewing Department Relationship Specialty Start Date End Date Trevor Rolon DO [address] [facility] 201 [place] [address] PCP - General 11/22/20 Mc Grant DO [address] [facility] [address] [place] [address] Referring Physician Gastroenterology 02/21/24 El Agarwal APRN [address] [place] [address] Referring Physician Gastroenterology 03/21/25 documented as of this encounter
--- OUTSIDE RECORDS SUMMARY | 2025-05-23 23:27 | XMS_ITS | Encounter Summary ---
Author Organization [facility] Address [address] [place] [address] Care Team Providers Care White Sourer Name Role Phone Trevor Rolon DO Primary Care Provider Mc Grant DO Unavailable [phone] El Agarwal PIPE AND TANK FABRICATOR Unavailable [phone] Encounter Details Date Type Department Care Team (Latest Contact Info) Description 05/21/2025 Travel Social History Tobacco Use Types Packs/Day [...] EST Appointment [facility] G Radiology [address] [place] [address] 05/25/2025 2:00 PM EST Appointment [facility] [place] Pulmonary Function Testing [address] [place] [address] 05/25/2025 3:30 PM EST Appointment Cardiac Imaging [address] [place] [address] 05/31/2025 4:30 PM EST Appointment [facility] [address] [place] [address] 06/12/2025 2:30 PM EST Office Visit [facility] [place] [address] [facility] [place] [address] Juana Gale APRN [address] [place] [address] 06/20/2025 10:30 AM EST Procedure Visit [facility] [address], 1st [place] [address] Claire Davidson MD [address] [address] 06/21/2025 2:00 PM EST Office Visit [facility] [address] [facility] [place] [address] Claire Davidson MD [id number] [place] [address] 07/17/2025 8:45 AM EST Clinical Support [facility] Transplant Center [address] [address] 07/17/2025 10:30 AM EST Office Visit [facility] [place] [address] [address] Nj Johns MD [address] [place] [address] documented as of this encounter Visit Diagnoses [...] documented as of this encounter Care Teams White Sourer Relationship Specialty Start Date End Date Trevor Rolon DO [address] [facility] [address] [place] [address] PCP - General 11/22/20 Mc Grant DO [address] [facility] [address] [place] [address] Referring Physician Gastroenterology 02/21/24 El Agarwal APRN [address] [place] [address] Referring Physician Gastroenterology 03/21/25 documented as of this encounter
--- OUTSIDE RECORDS SUMMARY | 2025-05-23 23:27 | XMS_ITS | Clinical Summary ---
Author Organization [facility] Address [address] [place] [address] Care Team Providers Care Instructional Resource Teacher Name Role Phone Trevor Rolon DO Primary Care Provider [phone] Mc Grant DO Unavailable [phone] El Agarwal WOOD SETTER Unavailable [phone] Allergies Active Allergy Reactions Criticality Noted Date Comments Povidone Iodine Itching,Rash Medium 07/24/2015 With Betadine (topical). Sulfa Drugs Hives Medium 10/10/2024 Vortioxetine Itching,Rash Medium 04/09/2020 Wound Dressing Adhesive Other - please document in the comment field Medium 11/12/2021 Breaks out where skin comes in contact with adhesive. Prevents wound healing if over a wound (e.g., incision opened up where covering incision from breast reduction surgery). Medications bumetanide (Bumex) 1 MG tablet Take 2 tablets by mouth 2 times a day. 023 Active lansoprazole (Prevacid) [address] capsule Take 1 capsule by mouth daily. 023 Active simvastatin (Zocor) 20 MG tablet Take 1 tablet by mouth nightly. 023 Active rifAXIMin (Xifaxan) 550 MG tablet Take 1 tablet by mouth 2 times a day. Active potassium chloride CR (Klor-Con M20) 20 MEQ ER tablet Take 1 tablet by mouth 2 times a day. Active rOPINIRole (Requip) 1 MG tablet Take 1 tablet by mouth 4 times a day. Active ergocalciferol (Vitamin D-2) 1.25 MG (74703 UT) capsule Take 1 capsule by mouth 1 time per week. Take on Tuesdays. Active diclofenac (Voltaren) 1 % topical gel Place 2 g on the skin 4 times a day as needed (joint pain). Active insulin glargine (Lantus SoloStar) 100 UNIT/ML injection pen Inject 20 Units under the skin every morning. Active Jardiance 25 MG Take 1 tablet by mouth daily. Active FeroSul 325 (65 Fe) MG tablet Take 1 tablet by mouth nightly. Active Rimegepant Sulfate (Nurtec) 75 MG tablet dispersible Dissolve 1 tablet on the tongue daily as needed (migraine headache). Active busPIRone (Buspar) 7.5 MG tablet Take 1 tablet by mouth 2 times a day. Active desvenlafaxine (Pristiq) 100 MG 24 hr tablet Take 50 mg by mouth daily. Active NovoLOG FLEXPEN 100 UNIT/ML injection pen Inject 5 Units under the skin 3 times a day as needed for high blood sugar (for BG > 150). Active hydrOXYzine pamoate (Vistaril) 25 MG capsule Take 1 capsule by mouth 3 times a day as needed for itching. Active promethazine (Phenergan) 25 MG tablet Take 1 tablet by mouth 3 times a day as needed for nausea or vomiting (if not helped by ondansetron). Active lisinopril 2.5 MG tablet Take 1 tablet by mouth daily. Active Ozempic, 1 MG/DOSE, 4 MG/3ML solution pen-injector Inject 1 mg under the skin 1 time per week. Active spironolactone (Aldactone) 100 MG tablet Take 1.5 tablets by mouth daily. Active oxyCODONE (Roxicodone) 5 MG immediate release tablet Take 1.5 tablets by mouth 3 times a day as needed for severe pain. Active pregabalin (Lyrica) 25 MG capsule Take 1 capsule by mouth daily. Active metoprolol succinate XL (Toprol-XL) 50 MG 24 hr tablet Take 1 tablet by mouth daily. Active valACYclovir (Valtrex) 500 MG tablet Take 1 tablet by mouth every morning. Active lactulose (Chronulac) 10 GM/15ML oral solution Take 15 mL by mouth 2 times a day. Active cyclobenzaprine (Flexeril) 10 MG tablet Take 1 tablet by mouth 3 times a day as needed for muscle spasms. Active baclofen (Lioresal) 10 MG tablet Take 1 tablet by mouth nightly. 30 tablet 2024 Active Additional Information Patient not taking.Reported on 05/18/2025 diphenhydrAMINE (Benadryl) 50 MG tablet - 50 mg PO 1 hour prior to the CT scan on 05-25-25 1 tablet Active predniSONE (Deltasone) 50 MG tablet 50 mg PO, 13, 7, and [address] Scan on 05-25-25. 3 tablet Active zinc sulfate (Zincate) 220 (50 Zn) MG capsuleIndication s:End-stage liver disease (CMS/HCC) Take 1 capsule by mouth 2 times a day. 240 capsule 2 025 2025 Active ondansetron ODT (Zofran-ODT) 8 MG disintegrating tablet Dissolve 1 tablet on the tongue every 8 hours as needed for nausea or vomiting. Active metoprolol succinate XL (Toprol-XL) 50 MG 24 hr tablet Take 2 tablets by mouth daily. 023 2024 Discontinued hydrOXYzine HCl (Atarax) 25 MG tablet Take 1 tablet by mouth daily as needed. 023 2024 Discontinued ondansetron (Zofran) 4 MG tablet Take 1 tablet by mouth every 8 hours as needed. 2024 Discontinued Continuous Glucose Sensor (Dexcom G7 Sensor) misc USE TO MONITOR BLOOD SUGAR DIRECTED. CHANGE SENSOR EVERY 10 DAYS. 2024 Discontinued Blood Glucose Monitoring Suppl (FreeStyle Lite) w/Device kit use DIRECTED TO check BLOOD GLUCOSE THREE TIMES DAILY 2024 Discontinued OneTouch Verio test strip Use 3 per day. Code E11.65 2024 Discontinued BD Pen Needle Candie Ultrafine 32G X 4 MM misc 2 times a day. 2024 Discontinued Embecta Insulin Syr Ultrafine 31G X 15/64 1 ML misc USE TO INJECT INSULIN EVERY MORNING DIRECTED 2024 Discontinued Easy Touch Lancets 30G misc 3 times a day. as directed 2024 Discontinued pantoprazole (Protonix) 40 MG EC tablet Take 1 tablet by mouth daily. 2024 Discontinued zinc sulfate (Zincate) 220 (50 Zn) MG capsuleIndication s:End-stage liver disease (CMS/HCC) Take 1 capsule by mouth 2 times a day. 240 capsule 2 2024 Discontinued(R eorder) predniSONE (Deltasone) 50 MG tablet 50 mg PO, 13, 7, and [address] to the [address] Scan on 05-25-25. 3 tablet 2024 Discontinued(R eorder) Active Problems Problem Noted Date Diagnosed Date [...] experienced similar symptoms and her GI in [place] started her on Xifaxan, which reportedly resolved the symptoms, despite a recurrence in October 2021. Her symptoms today have since significantly resolved, per patient. She states she has had no lapses in taking her medication during these periods, although today she is out of the medication and her GI in [place] has discharged her from the practice due to no-show visits. Dr. Rolon in [place] was called to see if he will Rx the medication. Referral to [facility] was made. Patient also has [...] Date Myopia of both eyes 08/25/2022 04/01/20 Nuclear sclerotic cataract of both eyes 08/25/2022 04/01/2025 Encounters Date Type Department Care Team Description 05/22/2025 11:15 AM EST Consult [facility] [address], [address] [place] [phone] Nigel Recinos MD Lumbar radiculopathy (Primary Dx); Cervical spondylosis with myelopathy 05/22/2025 10:40 AM EST - 05/22/2025 11:59 PM EST Hospital Encounter [facility] [address], [address] [place] [phone] Lumbar radiculopathy; Cervical spondylosis with myelopathy Discharge Disposition: Home or Self Care 05/22/2025 Travel 05/21/2025 Travel 05/21/2025 Results Follow-Up Professional [facility] [address] [facility] [address] [facility], [address] [place] [address] Claire Davidson MD 05/18/2025 2:00 PM EST Pharmacist Visit [facility] [address] [place] [address] Jemma Mancuso, PharmD Encounter for pre-transplant evaluation for liver transplant (Primary Dx) 05/18/2025 1:30 PM EST Hospital Encounter [facility] [address], 1[address] [place] [address] End-stage liver disease (CMS/HCC) Discharge Disposition: Home or Self Care 05/18/2025 1:30 PM EST Hospital Encounter [facility] [address], 1st [place] [address] End-stage liver disease (CMS/HCC) Discharge Disposition: Home or Self Care 05/18/2025 1:00 PM EST - 05/18/2025 1:29 PM EST Hospital Encounter [facility] [address] [place] [address] End-stage liver disease (CMS/HCC) Discharge Disposition: Home or Self Care 05/18/2025 11:30 AM EST Social Work [facility] [address] [place] [phone] Thuy Dasilva, LICENSED PHYSICAL THERAPY ASSISTANT 05/18/2025 10:50 AM EST Office Visit [facility] [address] [place] [phone] Nj Johns MD End-stage liver disease (CMS/HCC) 05/18/2025 9:30 AM EST Clinical Support [facility] [address] [place] [phone] Kaley Almanza, XAVI 05/18/2025 Refill [facility] [address] [phone] Madyson Sarabia, RN 05/18/2025 Travel 05/17/2025 Telephone [facility] [address] [place] [address] Shelby Escamilla, RN 05/17/2025 Refill [facility] [address] [place] [phone] Madyson Sarabia, RN 05/14/2025 1:04 PM EST - 05/14/2025 11:59 PM EST Hospital Encounter [facility] [address] [place] [address] Lumbosacral radiculopathy Discharge Disposition: Home or Self Care 05/14/2025 Telephone [facility] [address] [place] [address] Shelby Escamilla, CORWIN 05/14/2025 Travel 05/08/2025 Travel 04/19/2025 Results Follow-Up [facility] [address] [place] [phone] Madyson Sarabia, RN 04/12/2025 Telephone [facility] [place] [address] [place] [phone] Madyson Sarabia, RN 04/05/2025 Telephone [facility] [address] [place] [address] [facility] Same Day Appt/Overbook Request (OVERBOOK) 04/03/2025 8:40 AM EDT Office Visit [facility] [address] [phone] Swapnil Madrigal MD Surgeon, Transplant Liver End-stage liver disease (CMS/HCC) (Primary Dx) 04/03/2025 8:00 AM EDT Office Visit [facility] [place] [address] [phone] Nj Johns MD End-stage liver disease (CMS/HCC) (Primary Dx); Metabolic syndrome; Other ascites; Hepatic encephalopathy (CMS/HCC); Elevated alkaline phosphatase level 04/03/2025 Travel 04/02/2025 Travel 03/28/2025 Telephone [facility] [address] [phone] Sharri Almonte 03/28/2025 Telephone [facility] [address] [place] [phone] Sharri Almonte Appointment (Confirmation and reminders) 03/28/2025 [facility] [address] [place] [address] Laquita Corral PA Thrombocytopenia (CMS/HCC) (Primary Dx) 03/21/2025 Telephone [facility] [address] [phone] Sharri Almonte Appointment 03/21/2025 Telephone [facility] [address] [phone] Sharri Almonte Referral - Liver Txp 03/21/2025 [facility] [address] [place] [address] El Agarwal APRN Cirrhosis of liver without ascites, unspecified hepatic cirrhosis type (CMS/HCC) (Primary Dx) 03/08/2025 8:00 AM EDT Consult Professional [facility] [address] [facility], [address] [place] [address] Claire Davidson MD Lumbosacral radiculopathy (Primary Dx) 03/08/2025 Travel 03/04/2025 [facility] [address] [place] [address] Laquita Corral PA Neuropathic pain, leg, bilateral (Primary Dx); HTN, goal to be determined 02/28/2025 [facility] [address] [place] [phone] Laquita Corral PA 02/20/2025 Orders Only External Location [address] [place] [phone] Provider, External from Last 3 Months Immunizations [...] Pressure 122/64 05/22/2025 12:38 PM EST Pulse 97 05/18/2025 10:44 AM EST Temperature 36.7 C (98.1 F) 05/18/2025 10:44 AM EST Respiratory Rate 16 05/18/2025 10:44 AM EST Oxygen Saturation 99% 05/18/2025 10:44 AM EST Inhaled Oxygen Concentration - - Weight 83.9 kg (185 lb) 05/22/2025 12:38 PM EST Height 170.2 cm (5' 7 ) 05/22/2025 12:38 PM EST Body Mass Index 28.98 05/22/2025 12:38 PM EST Plan of Treatment Upcoming Encounters Date Type Department Care Team (Late st Contact Info) Description 05/25/2025 11:30 AM EST Appointment [facility] [address] [place] [address] 05/25/2025 2:00 PM EST Appointment [facility] Pulmonary Function Testing [address] [place] [address] 05/25/2025 3:30 PM EST Appointment Cardiac Imaging [address] [place] [address] 05/31/2025 4:30 PM EST Appointment [facility] [address] [place] [address] 06/12/2025 2:30 PM EST Office Visit [facility] [place] [address] [facility] [address] [facility], [address] [place] [address] Juana Gale, WOOD SETTER [address] [place] [address] 06/20/2025 10:30 AM EST Procedure Visit [facility] [address], 1[address] [place] [address] Claire Davidson MD [address] [place] [address] 06/21/2025 2:00 PM EST Office Visit Professional [facility] [address] [facility] [address] [facility], [address] [place] [address] Claire Davidson MD [address] [place] [address] 07/17/2025 8:45 AM EST Clinical Support [facility] [address] [place] [address] 07/17/2025 10:30 AM EST Office Visit [facility] [address] [place] [address] Nj Johns MD [address] [place] [address] Health Maintenance Due Date Last Done Comments [facility]-Infant/Child/Adol SDOH Screenings 1969 Diabetes: Dental Exam 10/17/1979 [facility]- SDOH Screenings 10/17/1987 [facility]-Adult SDOH Screenings 10/17/1987 [facility]-DTaP,Tdap,and Td Vaccines (1 - Tdap) 1988 [facility]-Pneumococcal Vaccine: 50+ Years (1 of 2 - PCV) 1988 [facility]-Zoster Vaccines (1 of 2) 1988 [facility]-HPV/Cotest 10/17/1999 CT Colonography 2014 FIT-DNA 2014 FIT 2014 FOBT 2014 Sigmoidoscopy 2014 [facility]-Hepatitis A Vaccines (2 of 3 - Hep A Twinrix risk 3-dose series) 10/11/2020 09/13/2020 [facility]-Hepatitis B Vaccines (2 of 3 - Hep B Twinrix 3-dose series) 10/11/2020 09/13/2020 [id number] Vaccine (2 - Moderna risk series) 01/21/2021 12/24/2020 [facility]-Influenza Vaccine (#1) 2025 04/08/2023, [facility]-Diabetes: Hemoglobin A1C 11/15/202501/2025, 02/26/2025, 06/01/2024, Additional history exists [facility]-Breast Cancer Screening 02/14/2026 08/0 12/2023, 04/16/2015, 02/07/2014 [facility]-Depression Screening 05/18/2026 05/18/2025, 03/13 [facility]-Cervical Cancer Screening 12/13/2027 [facility]-Pap Smear 12/13/2027 12/12/2024 Colonoscopy 07/31/2032 07/31/2022, 06/18/2020 [facility]-Colorectal Cancer Screening 07/31/2032 [facility]-Hepatitis C Screening Completed 2024, 03/27/2025, 09/08/2024, Additional history exists [facility]-HIV Screening Completed 05/18/2025, 09/08/2019 [facility]-Obesity Intervention Completed 025, 05/18/2025, 04/03/2025, Additional history exists HPV Vaccines Aged Out [...] Name Priority Date/Time Associated Diagnosis Comments XR CERVICAL SPINE COMPLETE 4 TO 5 VIEWS Routine 05/22/2025 11:32 AM EST Cervical spondylosis with myelopathy XR LUMBAR SPINE 4 VIEWS TO INCLUDE FLEXION EXTENSION Routine 05/22/2025 11:32 AM EST Lumbar radiculopathy XR PANOREX Routine 05/18/2025 2:29 PM EST End-stage liver disease (CMS/HCC) XR CHEST 2 VIEWS Routine 05/18/2025 2:20 PM EST End-stage liver disease (CMS/HCC) DEXA BONE DENSITY Routine 05/18/2025 1:5 1 PM EST End-stage liver disease (CMS/HCC) CYTOPLASMIC PATTERNSO) (SO) Routine 05/18/2025 8:47 AM EST End-stage liver disease (CMS/HCC) JEANNIE SINGLE PATTERN (REFLEX ONLY) (SO) Routine 05/18/2025 8:47 AM EST End-stage liver disease (CMS/HCC) HIV 1/2 ANTIBODY/ANTIGEN SCREEN WITH REFLEX TO HIV I/II DIFFERENTIATION Routine 05/18/2025 8:47 AM EST End-stage liver disease (CMS/HCC) PAIN MANAGEMENT, QUANTITATIVE URINE DRUG TESTING Routine 05/18/2025 8:47 AM EST End-stage liver disease (CMS/HCC) ABO/RH Routine 05/18/2025 8:47 AM EST End-stage liver disease (CMS/HCC) ALPHA 1 ANTITRYPSIN PHENOTYPE(INCLUDES [id number])SO (SO) Routine 05/18/2025 8:47 AM EST End-stage liver disease (CMS/HCC) ALPHA FETOPROTEIN, SERUM Routine 05/18/2025 8:47 AM EST End-stage liver disease (CMS/HCC) AMYLASE, PLASMA Routine 05/18/2025 8:47 AM EST End-stage liver disease (CMS/HCC) MITOCHONDRIAL M2 ANTIBODY, IGG (CRISTAL)(SO) Routine 05/18/2025 8:47 AM EST End-stage liver disease (CMS/HCC) ANTINUCLEAR ANTIBODY (JEANNIE) WITH HEP-2 SUBSTRATE, IGG BY IFA (SO) Routine 05/18/2025 8:47 AM EST End-stage liver disease (CMS/HCC) CEA, SERUM Routine 05/18/2025 8:47 AM EST End-stage liver disease (CMS/HCC) CERULOPLASMIN Routine 05/18/2025 8:47 AM EST End-stage liver disease (CMS/HCC) COMPREHENSIVE METABOLIC PANEL, PLASMA Routine 05/18/2025 8:47 AM EST End-stage liver disease (CMS/HCC) CYTOMEGALOVIRUS ANTIBODY, IGG Routine 05/18/2025 8:47 AM EST End-stage liver disease (CMS/HCC) TIANA-PRAKASH VIRUS ANTIBODY TO VIRAL CAPSID ANTIGEN, IGG (SO Routine 05/18/2025 8:47 AM EST End-stage liver disease (CMS/HCC) FERRITIN, SERUM Routine 05/18/2025 8:47 AM EST End-stage liver disease (CMS/HCC) GAMMA GLUTAMYLTRANSFERASE, PLASMA Routine 05/18/2025 8:47 AM EST End-stage liver disease (CMS/HCC) HEMOGLOBIN A1C Routine 05/18/2025 8:47 AM EST End-stage liver disease (CMS/HCC) HEPATITIS B CORE TOTAL AB (IGG AND IGM) Routine 05/18/2025 8:47 AM EST End-stage liver disease (CMS/HCC) CBC WITH AUTO DIFFERENTIAL Routine 05/18/2025 8:47 AM EST End-stage liver disease (CMS/HCC) HIV 1/2 ANTIBODY/ANTIGEN SCREEN W/REFLEX TO HIV 1/2 ANTIBODY DIFFERENTIATION Routine 05/18/2025 8:47 AM EST End-stage liver disease (CMS/HCC) HERPES SIMPLEX TYPE 1 AND TYPE 2 GLYCOPROTEIN G-SPECIFIC ANTIBODIES, IGG (SO) Routine 05/18/2025 8:47 AM EST End-stage liver disease (CMS/HCC) LACTATE DEHYDROGENASE, PLASMA Routine 05/18/2025 8:47 AM EST End-stage liver disease (CMS/HCC) LIPID PROFILE, PLASMA Routine 05/18/2025 8:47 AM EST End-stage liver disease (CMS/HCC) LIVER-KIDNEY MICROSOME ANTIBODY, IGG (SO) Routine 05/18/2025 8:47 AM EST End-stage liver disease (CMS/HCC) PROTHROMBIN TIME(PT) / INR Routine 05/18/2025 8:47 AM EST End-stage liver disease (CMS/HCC) SMOOTH MUSCLE ANTIBODY, IGG TITER (SO) Routine 05/18/2025 8:47 AM EST End-stage liver disease (CMS/HCC) TREPONEMA PALLIDUM (SYPHILIS) ANTIBODIES WITH REFLEX TO RPR AND RPR TITER (THOSE WITH NO KNOWN SYPHILIS) Routine 05/18/2025 8:47 AM EST End-stage liver disease (CMS/HCC) IRON & TOTAL IRON BINDING CAPACITY, PLASMA (INCLUDES TRANSFERRIN) Routine 05/18/2025 8:47 AM EST End-stage liver disease (CMS/HCC) TSH Routine 05/18/2025 8:47 AM EST End-stage liver disease (CMS/HCC) COMPREHENSIVE URINE DRUG SCREENING,QUALITATIVE ASSAY, >= 27 DRUG CLASSES Routine 05/18/2025 8:47 AM EST End-stage liver disease (CMS/HCC) NICOTINE AND COTININE METABOLITE, SERUM, QUANTITATIVE Routine 05/18/2025 8:47 AM EST End-stage liver disease (CMS/HCC) ALCOHOL, URINE Routine 05/18/2025 8:47 AM EST End-stage liver disease (CMS/HCC) PAIN MANAGEMENT, QUANTITATIVE URINE DRUG TESTING Routine 05/18/2025 8:47 AM EST End-stage liver disease (CMS/HCC) VARICELLA ZOSTER ANTIBODY IGG Routine 05/18/2025 8:47 AM EST End-stage liver disease (CMS/HCC) VITAMIN D 25 HYDROXY Routine 05/18/2025 8:47 AM EST End-stage liver disease (CMS/HCC) CRYPTOCOCCAL ANTIGEN, SERUM Routine 05/18/2025 8:47 AM EST End-stage liver disease (CMS/HCC) MR CERVICAL SPINE WO IV CONTRAST Routine 05/14/2025 1:38 PM EST Lumbosacral radiculopathy COMPREHENSIVE METABOLIC PANEL, PLASMA Routine 04/19/2025 CBC W/O DIFFERENTIAL Routine 04/19/2025 COMPREHENSIVE METABOLIC PANEL, PLASMA Routine 04/11/2025 CBC W/O DIFFERENTIAL Routine 04/11/2025 PROTHROMBIN TIME(PT) / INR Routine 04/11/2025 ANTI-SP100 AND ANTI-GP210 ANTIBODIES, IGG (SO) Routine 04/03/2025 10:11 AM EDT Routine general medical examination at a health care facility MITOCHONDRIAL M2 ANTIBODY, IGG (CRISTAL)(SO) Routine 04/03/2025 10:11 AM EDT End-stage liver disease (CMS/HCC) IG PROFILE Routine 04/03/2025 10:11 AM EDT End-stage liver disease (CMS/HCC) SMOOTH MUSCLE ANTIBODY, IGG TITER (SO) Routine 04/03/2025 10:11 AM EDT End-stage liver disease (CMS/HCC) ALPHA 1 ANTITRYPSIN PHENOTYPE(INCLUDES [id number])SO (SO) Routine 04/03/2025 10:11 AM EDT End-stage [...] OUTSIDE IMAGES 02/21/20 25 1:19 PM EDT COLONOSCOPY 06/18/2020 from Last 3 Months or Most Recently Relevant to Health Maintenance Results * XR Lumbar Spine 4+ Views w [...] and mild C7-T1 disc space narrowing. Moderate C7-H8mcwuo arthropathy. No subluxation between flexion and extensionradiographs. [...] Briseno MD on 05/22/2025 12:08 PM Sivan Peguero Poncho WOOD SETTER, DNP IMG XR PROCEDURES Jennifer l Result * XR Cervical Spine Complete 4 To [...] and mild C7-T1 disc space narrowing. Moderate C7-E4jsbsz arthropathy. No subluxation between flexion and extensionradiographs. [...] MD on 05/22/2025 12:08 PM Sivan Isaac WOOD SETTER, DNP IMG XR PROCEDURES Jennifer l Result * XR Panorex (05/18/2025 2:29 PM EST) [...] MD IMG XR PROCEDURES Final R esult * XR Chest 2 Views (05/18/2025 2:20 [...] signing this report, I, the attending physician, attestthat I have personally reviewed the images/data for the aboveexamination(s) and agree with the final edited report. Drafted by Adolfo Howard MD on 05/18/2025 2:24 PM Final report signed by Shady Lebron MD on 05/18/2025 2:54 PM us Kaela Khan MD IMG XR PROCEDURES Final R esult * Dexa Bone Density (05/18/2025 1:51 PM [...] forearm, right forearm was performed using a [employer] Horizon A Dual-energy X-ray Absorptiometry (DXA) scanner [...] left forearm, right forearm wasperformed using a [employer] Horizon A Dual-energy X-ray Absorptiometry (DXA)scanner (software [...] Khan MD IMG DXA PROCEDURES Final Result * (ABNORMAL) Pain Management, Quantitative Urine Drug Testing (05/18/2025 8:47 AM EST) Only the most recent of2 resultswithin the time period is included. [facility] [place] Alprazolam <20 <20 ng/mL 05/21 3:43 PM EST [facility] [place] Midazolam <20 <20 ng/mL 2024 3:43 PM EST [facility] [place] Triazolam <20 <20 ng/mL 2024 3:43 PM EST [facility] Alprazolam <10 <10 ng/mL 05/21/2025 3:43 PM EST [facility] Aminoclonazepam <20 <20 ng/mL 3:43 PM EST [facility] Amphetamine <50 <50 ng/mL 05/21/2025 3:43 PM EST [facility] Benzoylecgonine <50 <50 ng/mL 3:43 PM EST [facility] Buprenorphine <10 <10 ng/mL 05/21/2025 3:43 PM EST [facility] Buprenorphine Glucuronide <50 <50 ng/mL 05/21/2025 3:43 PM EST [facility] Butalbital <50 <50 ng/mL 05/21/2025 3:43 PM EST [facility] 9 Carboxy THC <10 <10 ng/mL 05/21/2025 3:43 PM EST [facility] 9 Carboxy THC Glucuronide <25 <25 ng/mL 05/21/2025 3:43 PM EST [facility] Clonazepam <10 <10 ng/mL 05/21/2025 3:43 PM EST [facility] Codeine <50 <50 ng/mL 05/21/2025 3:43 PM EST [facility] Codeine Glucuronide <50 <50 ng/mL 05/21 3:43 PM EST [facility] Cyclobenzaprine 412(H) <50 ng/mL 3:43 PM EST [facility] Desmethyl Tramadol <50 <50 ng/mL 2024 3:43 PM EST [facility] Diazepam <10 <10 ng/mL 05/21/2025 3:43 PM EST [facility] EDDP - Methadone Metabolite <50 <50 ng/mL 05/21/2025 3:43 PM EST [facility] Fentanyl <1 <1 ng/mL 05/21/2025 3:43 PM EST [facility] Hydrocodone <50 <50 ng/mL 05/21/2025 3:43 PM EST [facility] Hydromorphone <50 <50 ng/mL 05/21/2025 3:43 PM EST [facility] Hydromorphone Glucuronide <50 <50 ng/mL 05/21/2025 3:43 PM EST [facility] Lorazepam <20 <20 ng/mL 05/21/2025 3:43 PM EST [facility] Lorazepam Glucuronide <50 <50 ng/mL 05/21/2025 3:43 PM EST [facility] MDA <50 <50 ng/mL 05/21/2025 3:43 PM EST [facility] MDMA <50 <50 ng/mL 05/21/2025 3:43 PM EST [facility] Meperidine <50 <50 ng/mL 05/21/2025 3:43 PM EST [facility] Methadone <50 <50 ng/mL 05/21/2025 3:43 PM EST [facility] Methamphetamine <50 <50 ng/mL 3:43 PM EST [facility] Methylphenidate <50 <50 ng/mL 3:43 PM EST [facility] 6 Monoacetyl morphine <10 <10 ng/mL 05/21/2025 3:43 PM EST [facility] Morphine <50 <50 ng/mL 05/21/2025 3:43 PM EST [facility] Morphine Glucuronide <50 <50 ng/mL 05/12 3:43 PM EST [facility] Naloxone <50 <50 ng/mL 05/21/2025 3:43 PM EST [facility] Naloxone Glucuronide <50 <50 ng/mL 05/12 3:43 PM EST [facility] Norbuprenorphine <10 <10 ng/mL 05/21/20 3:43 PM EST [facility] Norbuprenorphine Glucuronide <50 <50 ng/mL 05/21/2025 3:43 PM EST [facility] Nordiazepam <20 <20 ng/mL 05/21/2025 3:43 PM EST [facility] Norfentanyl <2 <2 ng/mL 05/21/2025 3:43 PM EST [facility] Normeperidine <50 <50 ng/mL 05/21/2025 3:43 PM EST [facility] PCP Quant, Ur <50 <50 ng/mL 05/21/2025 3:43 PM EST [facility] Phenobarbital <50 <50 ng/mL 05/21/2025 3:43 PM EST [facility] Oxazepam <20 <20 ng/mL 05/21/2025 3:43 PM EST [facility] Oxazepam Glucuronide <50 <50 ng/mL 05/12 3:43 PM EST [facility] Oxycodone 861(H) <50 ng/mL 05/21/2025 3:43 PM EST [facility] Oxymorphone <50 <50 ng/mL 05/21/2025 3:43 PM EST [facility] Oxymorphone Glucuronide 163(H) <50 ng/mL 05/21/2025 3:43 PM EST [facility] Secobarbital <50 <50 ng/mL 05/21/2025 3:43 PM EST [facility] Tramadol <50 <50 ng/mL 05/21/2025 3:43 PM EST [facility] Temazepam <20 <20 ng/mL 05/21/2025 3:43 PM EST [facility] Temazepam Glucuronide <50 <50 ng/mL 05/21/2025 3:43 PM EST [facility] Urine Urine specimen obtained by clean catch procedure / Unknown Non-blood Collection / Unknown 05/18/2025 8:47 AM EST 05/18/2025 9:36 AM EST [facility] - 05/21/2025 3:43 PM EST This report is intended for use in [...] developed and its performance characteristics determined by [facility]. It has not been cleared or approved by the FDA. The laboratory is regulated under CLIA as qualified to perform high-complexity testing. This test is used for clinical purposes. Kaela Khan MD LAB URINE ORDERABLES Jennifer l Result Performing Organization Address [facility] de Phone Number [facility] [address] [place] [address] * Alpha fetoprotein, serum (05/18/2025 8:47 AM EST) Only the most recent of2 resultswithin the time period is included. Alpha Fetoprotein, Serum 5.9 <10.0 ng/mL 05/18/2025 10:45 AM EST [facility] Blood Venous blood specimen / Unknown Venipuncture / Unknown 05/18/2025 8:47 AM EST 05/18/2025 9:02 AM EST Narrative [facility] - 05/18/2025 10:45 AM EST Performed by [employer] electrochemiluminescent immunoassay which is traceable to the 1st [facility] IRP WHO Reference standard 72/255. Results obtained with different test methods or kits cannot be used interchangeably. Kaela Khan MD LAB BLOOD ORDERABLES Jennifer l Result Performing Organization Address [facility] [place] [address] * Treponema Pallidum (Syphilis) Antibodies with Reflex to RPR and RPR Titer (Those with NO known Syphilis) (05/18/2025 8:47 AM EST) Pathologist [facility] Syphilis Antibody (IgG+IgM) Nonreactive Nonreactive 05/18/2025 10:04 AM EST [facility] Comment:Nonreactive. No sero logic evidence of syphilis. No follow-up necessary unless clinically indicated (e.g., early syphilis). Blood Venous blood specimen / Unknown Venipuncture / Unknown 05/18/2025 8:47 AM EST 05/18/2025 9:03 AM EST us Kaela Khan MD LAB BLOOD ORDERABLES Jennifer l Result Performing Organization Address [facility] [place] [address] * Cryptococcal Ag, Serum (05/18/2025 8:47 AM EST) Pathologist [facility] Cryptococcal Antigen Result (Serum) Negative Negative 05/18/2025 11:23 AM EST [facility] Blood Venous blood specimen / Unknown Venipuncture / Unknown 05/18/2025 8:47 AM EST 05/18/2025 9:13 AM EST us Kaela Khan MD LAB MICROBIOLOGY - GENERA L ORDERABLES Final Result Performing Organization Address [facility] de Phone Number [facility] [address] [place] [address] * Liver Kidney Microsome Antibodies (SO) (05/18/2025 8:47 AM EST) Pathologist [facility] Vtzle-Sucgsi-Q icrosome Abs, IgG by IFA <1:20 <1:20 05/21/2025 4:44 AM EST [facility] ([place]) Blood Venous blood specimen / Unknown Venipuncture / Unknown 05/18/2025 8:47 AM EST 05/18/2025 9:03 AM EST Narrative [facility] ([place]) - 05/21/2025 4:44 AM EST INTERPRETIVE INFORMATION: Kmtse-Veirco-Jjgfbelem Abs, IgG Liver-Kidney Microsome IgG antibody (anti-LKM), as detected by indirect immunofluorescent antibody (IFA) techniques, may be observed in patients with autoimmune hepatitis type 2 (AIH-2), AIH-2 associated with autoimmune coozxgjstyvzgtwtyo-trknessxkkd-oglupsdkoo dystrophy (APECED), viral hepatitis C or D, and some forms of drug-induced hepatitis. This IFA does not differentiate among the four types of LKM antibodies (LKM-1, LKM-2, LKM-3, and a fourth type that recognizes CY and CY antigens). Of these, anti-LKM-1 (cytochrome [id number]) IgG antibodies are considered specific for AIH-2. This test was developed and its performance characteristics determined by [facility]. It has not been cleared or approved by the US Food and Drug Administration. This test was performed in a CLIA certified laboratory and is intended for clinical purposes. Performed By: [facility] [address] [place] [address] Elevator Erector Helper: Kiel Mayfield MD, PhD CLIA Number: [id number] us Kaela Khan MD LAB BLOOD ORDERABLES Jennifer valdovinos Result [facility] [address] [place] [address] * (ABNORMAL) Herpes Simplex Type 1 and Type 2 Glycoprotein G-Specific Antibodies, IgG (SO) (05/18/2025 8:47 AM EST) Pathologist [facility] HSV 1 Glycoprotien G Ab, IgG >62.20(H) <=0.89 IV 05/20/2025 2:30 PM EST [facility] ([facility]) HSV 2 Glycoprotein G Ab, IgG 6.40(H) <=0.89 IV 05/20/2025 2:30 PM EST [facility]) Blood Venous blood specimen / Unknown Venipuncture / Unknown 05/18/2025 8:47 AM EST 05/18/2025 9:02 AM EST [facility]) - 05/20/2025 2:30 PM EST REFERENCE INTERVAL: HSV 1 Glycoprotein G Ab, IgG 0.89 IV or less ...... Negative - No significant level of detectable IgG antibody to HSV type 1 glycoprotein G. 0.90 - 1.09 IV ....... Equivocal - Questionable presence of IgG antibody to HSV type 1 glycoprotein G. Repeat testing in 10 - 14 days may be helpful. 1.10 IV or greater ... Positive - IgG antibody to HSV type 1 glycoprotein G detected, which may indicate a current or past HSV infection. Individuals infected with HSV may not exhibit detectable IgG antibody to type-specific HSV antigens 1 and 2 in early stages of infection. Detection of antibody presence in these cases may only be possible using a non-type specific screening test. REFERENCE INTERVAL: HSV 2 Glycoprotein G Ab, IgG 0.89 IV or less ....... Negative - No significant level of detectable IgG antibody to HSV type 2 glycoprotein G. 0.90 - 1.09 IV ........ Equivocal - Questionable presence of IgG antibody to HSV type 2 glycoprotein G. Repeat testing in 10 - 14 days may be helpful. 1.10 IV or greater .... Positive - IgG antibody to HSV type 2 glycoprotein G detected, which may indicate a current or past HSV infection. Individuals infected with HSV may not exhibit detectable IgG antibody to type-specific HSV antigens 1 and 2 in early stages of infection. Detection of antibody presence in these cases may only be possible using a non-type specific screening test. False positive results are possible. Consider additional testing for HSV-2, particularly if the result for HSV-2 is </= 3.0 IV. Performed By: [facility] [address] [place] [address] Elevator Erector Helper: Kiel Mayfield MD, PhD CLIA Number: [id number] Kaela Khan MD LAB BLOOD ORDERABLES Jennifer valdovinos Result [facility]) [address] [place] [address] * (ABNORMAL) Cytoplasmic Pattern (05/18/2025 8:47 AM EST) Cytoplasm Pattern AMA(A) 05/21/2025 11:08 PM EST [facility] ([place]) Cytoplasmic Titer 1:80(A) 05/21/2025 11:08 PM EST [facility] ([place]) Blood Venous blood specimen / Unknown Venipuncture / Unknown 05/18/2025 8:47 AM EST 05/18/2025 9:02 AM EST Narrative [facility] ([place]) - 05/21/2025 11:08 PM EST Performed By: [facility] [address] [place] [address] Elevator Erector Helper: Kiel Mayfield MD, PhD CLIA Number: [id number] Kaela Khan MD LAB BLOOD ORDERABLES Jennifer l Result Performing Organization Address [facility] de Phone Number [facility] ([facility]) [address] [place] [address] * (ABNORMAL) JEANNIE Single Pattern (Reflex only) (05/18/2025 8:47 AM EST) JEANNIE Pattern Homogeneou s(A) 05/21/2025 11:08 PM EST [facility] ([facility]) JEANNIE Titer 1:80(A) 05/21/2025 11:08 PM EST [facility] ([place]) Blood Venous blood specimen / Unknown Venipuncture / Unknown 05/18/2025 8:47 AM EST 05/18/2025 9:02 AM EST Narrative [facility]) - 05/21/2025 11:08 PM EST Performed By: [facility] [address] [place] [address] Elevator Erector Helper: Kiel Mayfield MD, PhD CLIA Number: [id number] Kaela Khan MD LAB BLOOD ORDERABLES Jennifer l Result Performing Organization Address [facility] de Phone Number [facility]) [address] [place] [address] * Zdsjl-3-Skwoirutqok Enzyme Conc and Phenotype (SO) (05/18/2025 8:47 AM EST) Only the most recent of2 resultswithin the time period is included. ALPHA 1 ANTITRYPSIN 129 90 - 200 mg/dL 05/22/2025 7:13 PM EST [facility] ([place]) A1A Phenotype M1Z 05/22/2025 7:13 PM EST [facility] ([place]) Blood Venous blood specimen / Unknown Venipuncture / Unknown 05/18/2025 8:47 AM EST 05/18/2025 9:02 AM EST Narrative [facility]) - 05/22/2025 7:13 PM EST To convert to umol/L, multiply mg/dL by [...] within the previous 21 days. Performed By: [facility] [address] [place] [address] Elevator Erector Helper: Kiel Mayfield MD, PhD CLIA Number: [id number] Kaela Khan MD LAB BLOOD ORDERABLES Jennifer l Result Performing Organization Address City/[facility]/ZIP Co de Phone Number [facility] ([facility]) [address] [place] [address] * HIV 1 & 2 Antibody/Antigen Screen (05/18/2025 8:47 AM EST) Pathologist [facility] HIV 1 & 2 Antibody/Antigen Screen Non Reactive Non Reactive 05/18/2025 9:44 AM EST [facility] Comment:Screening for HIV 1 & 2 antibodies, and P24 antigen is NONREACTIVE. No confirmatory testing is required. Blood Venous blood specimen / Unknown Venipuncture / Unknown 05/18/2025 8:47 AM EST 05/18/2025 9:03 AM EST Kaela Khan MD LAB BLOOD ORDERABLES Jennifer l Result [facility] [address] [place] [address] * (ABNORMAL) Iron & Total Iron Binding Capacity, Plasma (Includes Transferrin) (05/18/2025 8:47 AM EST) Iron, Plasma 171(H) 30 - 160 ug/dL 05/18/2025 9:35 AM EST [facility] Transferrin, Plasma 176(L) 200 - 360 mg/dL 05/18/2025 9:35 AM EST [facility] Total Iron Binding Capacity, Plasma 220(L) 240 - 450 ug/mL 05/18/2025 9:35 AM EST [facility] Transferrin Saturation 78(H) 14 - 50 % 05/18/2025 9:35 AM EST [facility] Blood Venous blood specimen / Unknown Venipuncture / Unknown 05/18/2025 8:47 AM EST 05/18/2025 9:03 AM EST Kaela Khan MD LAB BLOOD ORDERABLES Jennifer l Result Performing Organization Address City/[facility]/ZIP Co de Phone Number [facility] [address] [place] [address] * (ABNORMAL) Anti-smooth muscle antibody, IgG (SO) (05/18/2025 8:47 AM EST) Only the most recent of2 resultswithin the time period is included. Smooth Muscle Ab, IgG Titer 1:20(H) <1:20 05/21/2025 4:38 AM EST [facility] ([facility]) Blood Venous blood specimen / Unknown Venipuncture / Unknown 05/18/2025 8:47 AM EST 05/18/2025 9:02 AM EST Narrative [facility] ([facility]) - 05/21/2025 4:38 AM EST INTERPRETIVE INFORMATION: Smooth Muscle Ab, IgG Titer Less than 1:20 ........ Negative - No antibody detected. 1:20 - 1:80 .......... Weak Positive - Suggest repeat in two to three weeks with fresh specimen. 1:160 or greater ...... Positive - Suggestive of autoimmune hepatitis or chronic active hepatitis. Performed By: [facility] [address] [place] [address] Elevator Erector Helper: Kiel Mayfield MD, PhD CLIA Number: [id number] Kaela Khan MD LAB BLOOD ORDERABLES Jennifer l Result Performing Organization Address City/[facility]/ZIP Co de Phone Number [facility]) [address] [place] [address] * Mitochondrial M2 Antibody, IgG (CIRSTAL) (SO) (05/18/2025 8:47 AM EST) Only the most recent of2 resultswithin the time period is included. MITOCHONDRIA M2 AB IGG 23.6 0.0 - 24.9 Units 05/19/2025 11:51 PM EST [facility]) Serum Venous blood specimen / Unknown 05/18/2025 8:47 AM EST 05/18/2025 9:02 AM EST Narrative [facility]) - 05/19/2025 11:51 PM EST REFERENCE INTERVAL: Mitochondrial (M2) Antibody, IgG 20.0 [...] negative result does not rule out PBC. Kaela Khan MD LAB BLOOD ORDERABLES Jennifer l Result [facility]) [address] [place] [address] * Ceruloplasmin (05/18/2025 8:47 AM EST) Ceruloplasmin 32 20 - 60 mg/dL 05/21/2025 1:09 AM EST [facility] Blood Venous blood specimen / Unknown Venipuncture / Unknown 05/18/2025 8:47 AM EST 05/18/2025 9:03 AM EST Kaela Khan MD LAB BLOOD ORDERABLES Jennifer l Result [facility] [address] [place] [address] * Nicotine Cotinine Metabolite (05/18/2025 8:47 AM EST) Only the most recent of2 resultswithin the time period is included. NICOTINE <5 <5 ng/mL 05/20/2025 2:5 0 PM EST [facility] Cotinine <5 <5 ng/mL 05/20/2025 2:5 0 PM EST [facility] Blood Venous blood specimen / Unknown Venipuncture / Unknown 05/18/2025 8:47 AM EST 05/18/2025 9:02 AM EST Narrative [facility] - 05/20/2025 2:50 PM EST Testing performed by LC-MS/MS at the [facility]. This test was developed and its performance characteristics determined by [facility]. This assay has not been cleared by the FDA. The laboratory is regulated under CLIA as qualified to perform high-complexity testing. This test is used for clinical purposes. us Kaela Khan MD LAB BLOOD ORDERABLES Jennifer valdovinos Result [facility] [address] [place] [address] * (ABNORMAL) Tiana Prakash IgG Ab (SO) (05/18/2025 8:47 AM EST) EBV ANTIBODY TO VIRAL CAPSID ANTIGEN IGG 124.0(H) <=17.9 U/mL 05/20/2025 2:25 PM EST [facility] ([facility]) Blood Venous blood specimen / Unknown Venipuncture / Unknown 05/18/2025 8:47 AM EST 05/18/2025 9:02 AM EST Narrative [facility] ([facility]) - 05/20/2025 2:25 PM EST INTERPRETIVE INFORMATION: Tiana-Prakash Virus Antibody to Viral Capsid Antigen, IgG 17.9 U/mL or less.......Not Detected 18.0-21.9 U/mL..........Indeterminate - Repeat testing in 10-14 days may be helpful. 22.0 U/mL or greater....Detected Performed By: [facility] [address] [place] [address] Elevator Erector Helper: Kiel Mayfield MD, PhD CLIA Number: [id number] Kaela Khan MD LAB BLOOD ORDERABLES Jennifer l Result [facility] ([facility]) [address] [place] [address] * Hepatitis B Core Total Antibody IgG,IgM (05/18/2025 8:47 AM EST) Hepatitis B Core Total Antibody IgG,IgM Negative Negative 05/18/2025 10:04 AM EST [facility] Blood Venous blood specimen / Unknown Venipuncture / Unknown 05/18/2025 8:47 AM EST 05/18/2025 9:13 AM EST Kaela Khan MD LAB BLOOD ORDERABLES Jennifer l Result Performing Organization Address City/[facility]/ZIP Co de Phone Number [facility] [address] [place] [address] * ABO/Rh (05/18/2025 8:47 AM EST) Only the most recent of2 resultswithin the time period is included. ABO/Rh A Positive 05/18/2025 9:20 AM EST [facility] Blood Venous blood specimen / Unknown Venipuncture / Unknown 05/18/2025 8:47 AM EST 05/18/2025 9:20 AM EST Kaela Khan MD LAB BLOOD BANK TEST ORDER J LUIS Final Result Performing Organization Address City/[facility] de Phone Number [facility] [address] * Alcohol Urine (05/18/2025 8:47 AM EST) Only the most recent of2 resultswithin the time period is included. Alcohol Urine Negative Negative 05/18/2025 12:48 PM EST [facility] Urine Urine specimen obtained by clean catch procedure / Unknown Non-blood Collection / Unknown 05/18/2025 8:47 AM EST 05/18/2025 9:36 AM EST Narrative [facility] - 05/18/2025 12:48 PM EST The correlation between urine and serum ethanol concentration is highly variable. Test performed by Gas Chromatography at the [facility]. This test was developed and its performance characteristics determined by [facility]. It has not been cleared or approved by the FDA.The laboratory is regulated under CLIA as qualified to perform high-complexity testing. This test is used for clinical purposes only. Kaela Khan MD LAB URINE ORDERABLES Jennifer l Result Performing Organization Address [facility] de Phone Number [facility] [address] [place] [address] * (ABNORMAL) Vitamin D 25 Hydroxy (05/18/2025 8:47 AM EST) Vitamin D 25 Hydroxy 18.9(L) 20.0 - 80.0 ng/mL 05/18/2025 10:04 AM EST [facility] Blood Venous blood specimen / Unknown Venipuncture / Unknown 05/18/2025 8:47 AM EST 05/18/2025 9:02 AM EST Narrative [facility] - 05/18/2025 10:04 AM EST Testing performed on [employer], standardized against NIST SRM 2972. When testing samples from patients whose predominant form of vitamin D is vitamin D2, such as patients receiving vitamin D2 supplementation, results that are subtherapeutic should be confirmed with another method, such as LC-MS/MS, before being used for patient management. Vitamin D, 25-Hydroxy reference range, age 18 years and up: Deficiency: <12 ng/mL Insufficiency: 12 to 19 ng/mL Sufficiency: 20 to 80 ng/mL Possible toxicity: >100 ng/mL Kaela Khan MD LAB BLOOD ORDERABLES Jennifer l Result Performing Organization Address City/[facility]/ZIP Co de Phone Number [facility] [address] [place] [address] * (ABNORMAL) Comprehensive Urine Drug Screening, Qualitative Assay, >= 27 Drug Classes (58:47 AM EST) Only the most recent of2 resultswithin the time period is included. Acetaminophen Negative Negative 05/20/2025 4:38 PM EST [facility] Alprazolam Negative Negative 05/20/2025 4:38 PM EST [facility] Amantadine Negative Negative 05/20/2025 4:38 PM EST [facility] Amitriptyline Negative Negative 05/20/2025 4:38 PM EST [facility] Amphetamine Negative Negative 05/20/2025 4:38 PM EST [facility] Atenolol Negative Negative 05/20/2025 4:38 PM EST [facility] Benzoylecgonine Negative Negative 4:38 PM EST [facility] Bisoprolol Negative Negative 05/20/2025 4:38 PM EST [facility] Bupropion Negative Negative 05/20/2025 4:38 PM EST [facility] Butalbital Negative Negative 05/20/2025 4:38 PM EST [facility] Carbamazepine Negative Negative 05/20/2025 4:38 PM EST [facility] Carisoprodol Negative Negative 05/20/2025 4:38 PM EST [facility] Chlorpheniramine Negative Negative 05/20/20 4:38 PM EST [facility] Citalopram Negative Negative 05/20/2025 4:38 PM EST [facility] Clindamycin Negative Negative 05/20/2025 4:38 PM EST [facility] Clonidine Negative Negative 05/20/2025 4:38 PM EST [facility] Clopidogrel / Ticlopidine Negative Negative 05/20/2025 4:38 PM EST [facility] Cocaethylene Negative Negative 05/20/2025 4:38 PM EST [facility] Cocaine Negative Negative 05/20/2025 4:38 PM EST [facility] Codeine Negative Negative 05/20/2025 4:38 PM EST [facility] Cyclobenzaprine Positive(A) Negative 05/20/20 4:38 PM EST [facility] Desvenlafaxine Negative Negative 05/20/2025 4:38 PM EST [facility] Dextromethorphan Negative Negative 05/20/20 4:38 PM EST [facility] Diazepam Negative Negative 05/20/2025 4:38 PM EST [facility] Diltiazem Negative Negative 05/20/2025 4:38 PM EST [facility] Diphenhydramine Positive(A) Negative 05/20/20 4:38 PM EST [facility] Doxepine Negative Negative 05/20/2025 4:38 PM EST [facility] Doxylamine Negative Negative 05/20/2025 4:38 PM EST [facility] EDDP-Methadone metabolite Negative Negative 05/20/2025 4:38 PM EST [facility] Fentanyl Negative Negative 05/20/2025 4:38 PM EST [facility] Fluconazole Negative Negative 05/20/2025 4:38 PM EST [facility] Fluoxetine Negative Negative 05/20/2025 4:38 PM EST [facility] Guaifenesin Negative Negative 05/20/2025 4:38 PM EST [facility] Haloperidol Negative Negative 05/20/2025 4:38 PM EST [facility] Heroin/6-FROYLAN Negative Negative 05/20/2025 4:38 PM EST [facility] Hydrocodone Negative Negative 05/20/2025 4:38 PM EST [facility] Hydroxyzine / Cetirizine metabolite Negative Negative 05/20/2025 4:38 PM EST [facility] Ibuprofen Negative Negative 05/20/2025 4:38 PM EST [facility] Imipramine Negative Negative 05/20/2025 4:38 PM EST [facility] Ketamine Negative Negative 05/20/2025 4:38 PM EST [facility] Labetolol Negative Negative 05/20/2025 4:38 PM EST [facility] Lamotrigine Negative Negative 05/20/2025 4:38 PM EST [facility] Levetiracetam Negative Negative 05/20/2025 4:38 PM EST [facility] Lidocaine Negative Negative 05/20/2025 4:38 PM EST [facility] MDA Negative Negative 05/20/2025 4:38 PM EST [facility] MDMA Negative Negative 05/20/2025 4:38 PM EST [facility] Memantine Negative Negative 05/20/2025 4:38 PM EST [facility] Meperidine Negative Negative 05/20/2025 4:38 PM EST [facility] Meprobamate Negative Negative 05/20/2025 4:38 PM EST [facility] Metaxalone Negative Negative 05/20/2025 4:38 PM EST [facility] Methamphetamine Negative Negative 4:38 PM EST [facility] Methocarbamol Negative Negative 05/20/2025 4:38 PM EST [facility] Methylecgonine Negative Negative 05/20/2025 4:38 PM EST [facility] Metoclopramide Negative Negative 05/20/2025 4:38 PM EST [facility] Metoprolol Positive(A) Negative 05/20/2025 4:38 PM EST [facility] Metronidazole Negative Negative 05/20/2025 4:38 PM EST [facility] Midazolam Negative Negative 05/20/2025 4:38 PM EST [facility] Midazolam Metabolite Negative Negative 05/20/2025 4:38 PM EST [facility] Mirtazapine Negative Negative 05/20/2025 4:38 PM EST [facility] Misc Test Result Positive(A) Negative 025 4:38 PM EST [facility] Comment:Ropinirole detected Naproxen Negative Negative 05/20/2025 4:38 PM EST [facility] Nefazodone Negative Negative 05/20/2025 4:38 PM EST [facility] Norfentanyl Negative Negative 05/20/2025 4:38 PM EST [facility] Nortriptyline Negative Negative 05/20/2025 4:38 PM EST [facility] Ordanstron Negative Negative 05/20/2025 4:38 PM EST [facility] Oxcarbazepine Negative Negative 05/20/2025 4:38 PM EST [facility] Oxycodone Positive(A) Negative 05/20/2025 4:38 PM EST [facility] Paroxethine Negative Negative 05/20/2025 4:38 PM EST [facility] Phenobarbital Negative Negative 05/20/2025 4:38 PM EST [facility] Phentermine Negative Negative 05/20/2025 4:38 PM EST [facility] Phenytoin Negative Negative 05/20/2025 4:38 PM EST [facility] Primidone Negative Negative 05/20/2025 4:38 PM EST [facility] Promethazine Negative Negative 05/20/2025 4:38 PM EST [facility] Propofol Negative Negative 05/20/2025 4:38 PM EST [facility] Propranolol Negative Negative 05/20/2025 4:38 PM EST [facility] Quetiapine Negative Negative 05/20/2025 4:38 PM EST [facility] Quinine Negative Negative 05/20/2025 4:38 PM EST [facility] Rantidine Negative Negative 05/20/2025 4:38 PM EST [facility] Sertraline Negative Negative 05/20/2025 4:38 PM EST [facility] Spironolactone Positive(A) Negative 4:38 PM EST [facility] Tizanidine Negative Negative 05/20/2025 4:38 PM EST [facility] Topiramate Negative Negative 05/20/2025 4:38 PM EST [facility] Tramadol Negative Negative 05/20/2025 4:38 PM EST [facility] Trazadone/ Trazadone metabolite Negative Negative 05/20/2025 4:38 PM EST [facility] Trimethoprim Negative Negative 05/20/2025 4:38 PM EST [facility] Valproic Acid Negative Negative 05/20/2025 4:38 PM EST [facility] Venlafaxine Negative Negative 05/20/2025 4:38 PM EST [facility] Verapamil Negative Negative 05/20/2025 4:38 PM EST [facility] Zolpidem Negative Negative 05/20/2025 4:38 PM EST [facility] Xylazine Negative Negative 05/20/2025 4:38 PM EST [facility] Urine Urine specimen obtained by clean catch procedure / Unknown Non-blood Collection / Unknown 05/18/2025 8:47 AM EST 05/18/2025 9:36 AM EST Kaela Khan MD LAB URINE ORDERABLES Jennifer l Result [facility] [address] [place] [address] * (ABNORMAL) Cytomegalovirus Antibody IgG (SO) (05/18/2025 8:47 AM EST) CMV ANTIBODY IGG >10.00(H) <=0.59 U/mL 05/20/2025 2:18 PM EST [facility]) Blood Venous blood specimen / Unknown Venipuncture / Unknown 05/18/2025 8:47 AM EST 05/18/2025 9:02 AM EST Narrative [facility]) - 05/20/2025 2:18 PM EST INTERPRETIVE INFORMATION: Cytomegalovirus Antibody, IgG 0.59 U/mL or less......... Not Detected 0.6 - 0.69 U/mL........... Indeterminate-Repeat testing in 10-14 days may be helpful. 0.70 U/mL or greater...... Detected In immunocompromised patients, CMV serology (IgG or IgM antibody titers) may not be reliable and may be misleading in the diagnosis of acute or reactivation CMV disease. The preferred method for diagnosis is culture of virus and/or demonstration of viral antigen in peripheral white cells (buffy coat), bronchoalveolar lavage (BAL) cells, or tissue biopsies. This test should not be used for blood donor screening, associated re-entry protocols, or for screening Human Cell, Tissues and Cellular and Tissue-Based Products (HCT/P). The best evidence for current infection is a significant change on two appropriately timed specimens, where both tests are done in the same laboratory at the same time. Performed By: [facility] [address] [place] [address] Elevator Erector Helper: Kiel Mayfield MD, PhD CLIA Number: [id number] Kaela Khan MD LAB BLOOD ORDERABLES Jennifer l Result [facility]) [address] [place] [address] * (ABNORMAL) Protime-INR (05/18/2025 8:47 AM EST) Only the most recent of4 resultswithin the time period is included. Prothrombin Time 17.0(H) 12.0 - 14.3 sec LAB COAGULATION METHOD 05/18/2025 9:34 AM EST [facility] INR 1.4(H) 0.9 - 1.1 LAB COAGULATION METHOD 05/18/2025 9:34 AM EST [facility] Blood Venous blood specimen / Unknown Venipuncture / Unknown 05/18/2025 8:47 AM EST 05/18/2025 9:03 AM EST Narrative [facility] - 05/18/2025 9:34 AM EST OPTIMAL INR RANGES FOR PATIENT ON ORAL ANTICOAGULANT THERAPY Prevention of venous thromboembolism INR 2.0 to 3.0 In patients with heart disease: Atrial fibrillation INR 2.0 to 3.0 Valvular heart disease INR 2.0 to 3.0 Tissue heart valves INR 2.0 to 3.0 Mechanical prosthetic valves INR 2.5 to 3.5 Prevention of recurrent KS INR 2.5 to 3.5 us Kaela Khan MD LAB BLOOD ORDERABLES Jennifer valdovinos Result [facility] [address] [place] [address] * (ABNORMAL) CBC and differential (05/18/2025 8:47 AM EST) WBC Count 6.16 3.70 - 10.30 10*3/uL LAB HEMATOLOGY METHOD 05/18/2025 9:56 AM EST [facility] RBC Count 3.68(L) 3.90 - 5.20 10*6/uL LAB HEMATOLOGY METHOD 05/18/2025 9:56 AM EST [facility] HGB 13.0 11.2 - 15.7 g/dL LAB HEMATOLOGY METHOD 05/18/2025 9:56 AM EST [facility] HCT 38.4 34.0 - 45.0 % LAB HEMATOLOGY METHOD 05/18/2025 9:56 AM EST [facility] Platelet Count 78(L) 155 - 369 10*3/uL LAB HEMATOLOGY METHOD 05/18/2025 9:56 AM EST [facility] MCV 104(H) 79 - 98 fL LAB HEMATOLOGY METHOD 05/18/2025 9:56 AM EST [facility] MCH 35.3(H) 26.0 - 32.0 pg LAB HEMATOLOGY METHOD 05/18/2025 9:56 AM EST [facility] MCHC 33.9 30.7 - 35.5 g/dL LAB HEMATOLOGY METHOD 05/18/2025 9:56 AM EST [facility] RDW 17.3(H) 11.5 - 14.5 % LAB HEMATOLOGY METHOD 05/18/2025 9:56 AM EST [facility] MPV 9.6 8.8 - 12.5 fL LAB HEMATOLOGY METHOD 05/18/2025 9:56 AM [facility] nRBC 0.0 <=0.0 per 100 WBCs LAB HEMATOLOGY METHOD 05/18/2025 9:56 AM EST [facility] Differential Type Automated LAB HEMATOLOGY METHOD 05/18/2025 9:56 AM [facility] Neutrophils % 90 % LAB HEMATOLOGY METHOD 05/18/2025 9:56 AM [facility] Lymphocytes % 7 % LAB HEMATOLOGY METHOD 05/18/2025 9:56 AM [facility] Monocytes % 1 % LAB HEMATOLOGY METHOD 05/18/2025 9:56 AM [facility] Eosinophils % 1 % LAB HEMATOLOGY METHOD 05/18/2025 9:56 AM [facility] Basophils % 0 % LAB HEMATOLOGY METHOD 05/18/2025 9:56 AM [facility] Immature Granulocytes % 1 % LAB HEMATOLOGY METHOD 05/18/2025 9:56 AM [facility] Neutrophils Absolute 5.51 1.60 - 6.10 10*3/uL LAB HEMATOLOGY METHOD 05/18/2025 9:56 AM [facility] Lymphocytes Absolute 0.45(L) 1.20 - 3.90 10*3/uL LAB HEMATOLOGY METHOD 05/18/2025 9:56 AM EST [facility] Monocytes Absolute 0.06(L) 0.30 - 0.90 10*3/uL LAB HEMATOLOGY METHOD 05/18/2025 9:56 AM EST [facility] Eosinophils Absolute 0.07 0.00 - 0.50 10*3/uL LAB HEMATOLOGY METHOD 05/18/2025 9:56 AM EST [facility] Basophils Absolute 0.02 0.00 - 0.10 10*3/uL LAB HEMATOLOGY METHOD 05/18/2025 9:56 AM EST [facility] Immature Granulocytes Absolute 0.05 0.00 - 0.06 10*3/uL LAB HEMATOLOGY METHOD 05/18/2025 9:56 AM EST [facility] Blood Venous blood specimen / Unknown Venipuncture / Unknown 05/18/2025 8:47 AM EST 05/18/2025 9:05 AM EST Narrative [facility] - 05/18/2025 9:56 AM EST Therapeutic decision making should be based on absolute values, rather than percentages. Kaela Khan MD LAB BLOOD ORDERABLES Jennifer l Result Performing Organization Address [facility] de Phone Number [facility] [address] [place] [address] * (ABNORMAL) Varicella Zoster Antibody IgG (05/18/2025 8:47 AM EST) Varicella Zoster Antibody IgG Positive(A ) Negative 05/18/2025 10:57 AM EST [facility] Comment: Varicella-zoster IgG Result Interpretation: Negative: No IgG antibody specific to the varicella-zoster virus detected. Patient is presumed not to have had a previous exposure to varicella-zoster through infection or vaccination. Equivocal: Serologic status cannot be determined. Repeat testing in 10-14 days may be helpful. Positive: IgG antibody specific to varicella-zoster detected. This may indicate the patient was exposed to varicella-zoster through infection or vaccination. Blood Venous blood specimen / Unknown Venipuncture / Unknown 05/18/2025 8:47 AM EST 05/18/2025 9:03 AM EST Kaela Khan MD LAB BLOOD ORDERABLES Jennifer l Result Performing Organization Address [facility] de Phone Number [facility] [address] [place] [address] * (ABNORMAL) Antinuclear Antibody (JEANNIE), HEp-2, IgG (SO) (05/18/2025 8:47 AM EST) JEANNIE INTERPRETIVE COMMENT See Note 05/21/2025 11:08 PM EST [facility] Anti Nuc Ab Screen Detected( H) <1:80 05/21/2025 11:08 PM EST [facility]) Blood Venous blood specimen / Unknown Venipuncture / Unknown 05/18/2025 8:47 AM EST 05/18/2025 9:02 AM EST Narrative [facility]) - 05/21/2025 11:08 PM EST Clinical Interpretation: Homogeneous Pattern Clinical associations: SLE, drug-induced SLE or DEMETRIUS. Main autoantibodies: Anti-dsDNA, anti-histones or anti-chromatin (anti-nucleosome) Cytoplasmic reticular/AMA pattern Clinical Associations: PBC, SSc, PBC-SSc overlap syndrome, and PBC-SjS overlap syndrome Main autoantibodies: Anti-mitochondrial antibody List of Abbreviations Antimitochondrial antibodies (AMA), Antisynthetase syndrome (ARS), chronic active hepatitis (CAH), inflammatory myopathies (IM) [dermatomyositis (DM), polymyositis (PM), necrotizing autoimmune myopathy (NAM)], interstitial lung disease (ILD), juvenile idiopathic arthritis (DEMETRIUS), mixed connective tissue disease (MCTD), primary biliary cholangitis (PBC), rheumatoid arthritis (RA), systemic autoimmune rheumatic diseases (SARD), Sjogren syndrome (SjS), systemic lupus erythematosus (SLE), systemic sclerosis (SSc), undifferentiated connective tissue disease (UCTD). INTERPRETIVE INFORMATION: JEANNIE Interpretive Comment Presence of antinuclear antibodies (JEANNIE) is a hallmark feature of systemic autoimmune rheumatic diseases (SARD). However, JEANNIE lacks diagnostic specificity and is associated with a variety of diseases (cancers, autoimmune, infectious, and inflammatory conditions) and may also occur in healthy individuals in varying prevalence. The lack of diagnostic specificity requires confirmation of positive JEANNIE by more specific serologic tests. JEANNIE (nuclear reactivity) positive patterns reported include centromere, homogeneous, nuclear dots, nucleolar, or speckled. JEANNIE (cytoplasmic reactivity) positive patterns reported include reticular/AMA, discrete/GW body-like, polar/golgi-like, cytoplasmic speckled or rods and rings. All positive patterns are reported to endpoint titers (1:2560). Reported patterns may help guide differential diagnosis, although they may not be specific for individual antibodies or diseases. Mitotic staining patterns not reported. Negative results do not necessarily rule out SARD. Performed By: [facility] [address] [place] [address] Elevator Erector Helper: Kiel Mayfield MD, PhD CLIA Number: [id number] Kaela Khan MD LAB BLOOD ORDERABLES Jennifer l Result Performing Organization Address City/[facility]/ZIP Co de Phone Number [facility] [address] [place] [address] * TSH (05/18/2025 8:47 AM EST) Thyroid Stimulating Hormone, Plasma 1.60 0.40 - 4.20 uIU/mL 05/18/2025 9:39 AM EST [facility] Blood Venous blood specimen / Unknown Venipuncture / Unknown 05/18/2025 8:47 AM EST 05/18/2025 9:03 AM EST Narrative [facility] - 05/18/2025 9:39 AM EST Trimester Specific Ranges TSH ( IU/mL) 1st Trimester 0.1 - 3.0 2nd Trimester 0.19 - 4.06 3rd Trimester 0.3 - 3.7 Kaela Khan MD LAB BLOOD ORDERABLES Jennifer l Result Performing Organization Address City/[facility] de Phone Number [facility] [address] [place] [address] * (ABNORMAL) LDH (05/18/2025 8:47 AM EST) LDH, Plasma 370(H) 116 - 250 U/L 05/18/2025 9:35 AM EST [facility] Blood Venous blood specimen / Unknown Venipuncture / Unknown 05/18/2025 8:47 AM EST 05/18/2025 9:03 AM EST Kaela Khan MD LAB BLOOD ORDERABLES Jennifer l Result Performing Organization Address City/[facility]/ZIP Co de Phone Number [facility] [address] [place] [address] * Hemoglobin A1c (05/18/2025 8:47 AM EST) Hemoglobin A1c 5.4 <5.7 % 05/18/2025 2:49 PM EST [facility] Blood Venous blood specimen / Unknown Venipuncture / Unknown 05/18/2025 8:47 AM EST 05/18/2025 9:05 AM EST Narrative [facility] - 05/18/2025 2:49 PM EST [facility] Interpretive Data: Diagnosis of Diabetes: Diabetic > or = 6.5% Pre-diabetic 5.7 to 6.4% Non-diabetic < or = 5.6% Glycemic Targets for Type I and Type II Diabetics: Non- Adults <7.0% Adults <6.0% Children and Adolescents <7.5% Source: [place] [employer]. Standards of medical care in diabetes,2017. Diabetes Care.2017:40 (suppl 1):S1-S135. Kaela Khan MD LAB BLOOD ORDERABLES Jennifer l Result [facility] [address] [place] [address] * (ABNORMAL) GGT (05/18/2025 8:47 AM EST) GGT, Plasma 52(H) 5 - 36 U/L 05/18/2025 9:35 AM EST [facility] Blood Venous blood specimen / Unknown Venipuncture / Unknown 05/18/2025 8:47 AM EST 05/18/2025 9:03 AM EST Kaela Khan MD LAB BLOOD ORDERABLES Jennifer l Result [facility] [address] [place] [address] * (ABNORMAL) Ferritin (05/18/2025 8:47 AM EST) Ferritin, Serum 1,200(H) 13 - 150 ng/mL 05/18/2025 9:45 AM EST [facility] Blood Venous blood specimen / Unknown Venipuncture / Unknown 05/18/2025 8:47 AM EST 05/18/2025 9:02 AM EST Kaela Kahn MD LAB BLOOD ORDERABLES Jennifer l Result Performing Organization Address City/[facility] de Phone Number [facility] [address] [place] [address] * (ABNORMAL) CEA (05/18/2025 8:47 AM EST) CEA, Serum 27.3(H) <4.0 ng/mL 05/18/2025 10:45 AM EST [facility] Blood Venous blood specimen / Unknown Venipuncture / Unknown 05/18/2025 8:47 AM EST 05/18/2025 9:02 AM EST Narrative [facility] - 05/18/2025 10:45 AM EST Normal range for smokers: < 5.5 ng/ml Normal range for non-smokers: <=4.0 ng/ml Performed by [employer] electrochemiluminescent immunoassay. Results obtained with different test methods or kits cannot be used interchangeably. us Kaela Khan MD LAB BLOOD ORDERABLES Jennifer l Result Performing Organization Address City/[facility] de Phone Number [facility] [address] [place] [address] * (ABNORMAL) Amylase, Plasma (05/18/2025 8:47 AM EST) Amylase 25(L) 27 - 114 U/L 05/18/2025 9:35 AM EST [facility] Blood Venous blood specimen / Unknown Venipuncture / Unknown 05/18/2025 8:47 AM EST 05/18/2025 9:03 AM EST Kaela Khan MD LAB BLOOD ORDERABLES Jennifer l Result Performing Organization Address City/[facility]/ZIP Co de Phone Number [facility] [address] [place] [address] * (ABNORMAL) Lipid panel (05/18/2025 8:47 AM EST) Cholesterol, Plasma 216(H) <200 mg/dL 05/18/2025 9:35 AM EST [facility] Comment: Cholesterol Reference Range (age >17 years): Desirable <200 mg/dL Borderline 200 to 239 mg/dL Undesirable >239 mg/dL HDL 85 >=50 mg/dL 05/18/2025 9:35 AM EST [facility] Comment: HDL Cholesterol Reference Ranges (age >17 years): Female, acceptable > or = 50 mg/dL Male, acceptable > or = 40 mg/dL Triglycerides, Plasma 93 <150 mg/dL 05/18/2025 9:35 AM EST [facility] Comment: Triglyceride Reference Range (age >17 years): Desirable: <150 mg/dL Borderline high: 150 to 199 mg/dL High: 200 to 499 mg/dL Very high: >499 mg/dL Increased risk of pancreatitis: >1000 mg/dL Cholesterol/HDL Ratio 3 05/18/2025 9:35 AM EST [facility] LDL, Calculated 115(H) <100 mg/dL 9:35 AM EST [facility] Comment: LDL Cholesterol Reference Range (age >17 years): Optimal: <100 mg/dL Near or above optimal: 100 - 129 mg/dL Borderline high: 130 - 159 mg/dL High: 160 - 189 mg/dL Very high: >189 mg/dL LDL Cholesterol Reference Range (age <18 years): Desirable: <110 mg/dL Borderline: 110 - 129 mg/dL Undesirable: >130 mg/dL LDL Cholesterol is calculated using the Combs/NIH equation. Fasting greater than or equal to 12 hours? Yes 05/18/2025 9:35 AM EST [facility] Blood Venous blood specimen / Unknown Venipuncture / Unknown 05/18/2025 8:47 AM EST 05/18/2025 9:03 AM EST us Kaela Khan MD LAB BLOOD ORDERABLES Jennifer valdovinos Result [facility] [address] [place] [address] * (ABNORMAL) Comprehensive metabolic panel (05/18/2025 8:47 AM EST) Only the most recent of4 resultswithin the time period is included. Glucose, Plasma 135(H) 74 - 99 mg/dL 05/18/2025 9:35 AM [facility] BUN, Plasma 21 7 - 21 mg/dL 05/18/2025 9:35 AM [facility] Creatinine, Plasma 1.10 0.60 - 1.10 mg/dL 05/18/2025 9:35 AM [facility] BUN/Creatinine Ratio 19 05/18/2025 9:35 AM [facility] Sodium, Plasma 132(L) 136 - 145 mmol/L 05/18/2025 9:35 AM [facility] Potassium, Plasma 4.9 3.6 - 4.9 mmol/L 05/18/2025 9:35 AM [facility] Chloride, Plasma 100 97 - 107 mmol/L 05/18/2025 9:35 AM [facility] CO2, Plasma 23 22 - 29 mmol/L 05/18/2025 9:35 AM [facility] Anion Gap 9 6 - 16 mmol/L 05/18/2025 9:35 AM [facility] Total Calcium, Plasma 9.4 8.9 - 10.2 mg/dL 05/18/2025 9:35 AM [facility] Total Protein 7.1 6.3 - 7.9 g/dL 05/18/2025 9:35 AM [facility] Albumin, Plasma 3.3(L) 3.5 - 5.2 g/dL 05/18/2025 9:35 AM [facility] AST, Plasma 97(H) 10 - 35 U/L 05/18/2025 9:35 AM [facility] ALT, Plasma 65(H) 10 - 35 U/L 05/18/2025 9:35 AM [facility] Alkaline Phosphatase, Plasma 233(H) 35 - 104 U/L 05/18/2025 9:35 AM [facility] Total Bilirubin, Plasma 2.2(H) 0.2 - 1.1 mg/dL 05/18/2025 9:35 AM [facility] eGFRcr 59.5 mL/min/1.7 3m*2 05/18/2025 9:35 AM EST [facility] Comment:Reported eGFRcr in m L/min/1.73m2 is based the CKD-EPI 2020 equation that does not use a race coefficient. Blood Venous blood specimen / Unknown Venipuncture / Unknown 05/18/2025 8:47 AM EST 05/18/2025 9:03 AM EST us Kaela Khan MD LAB BLOOD ORDERABLES Jennifer valdovinos Result [facility] [address] [place] [address] * MR Cervical Spine wo IV Contrast [...] Davidson MD IMG MRI PROCEDURES Final Result * CBC W/O Differential (04/19/2025) Only the most recent of3 resultswithin the time period is included. External WBC 8.8 External Red Blood Cell (RBC) 3.69 External Hemoglobin (Hgb) 12.80 External Hematocrit (Hct) 36.9 External Platelet Count (Plt) 98 Blood Venous blood specimen / Unknown 04/19/2025 Historical Provider LAB BLOOD ORDERABLES Final R esult * ANTI-SP100 AND ANTI-GP210 ANTIBODIES, IGG (SO) (04/03/2025 10:11 AM EDT) ANTI-GP210 ANTIBODY, IGG 1.3 0.0 - 24.9 Units 04/05/2025 11:22 PM EDT [facility] ([facility]) ANTI-SP100 ANTIBODY, IGG 1.4 0.0 - 24.9 Units 04/05/2025 11:22 PM EDT [facility] ([facility]) Serum 04/03/2025 10:1 1 AM EDT 04/03/2025 2:14 PM EDT Narrative [facility] ([facility]) - 04/05/2025 11:22 PM EDT REFERENCE INTERVAL: [...] does not rule out PBC. Performed By: [facility] [address] [place] [id number] Elevator Erector Helper: Kiel Mayfield MD, PhD CLIA Number: [id number] Nj Johns MD LAB REF LAB BLOOD AND FLUID OR D Final Result Performing Organization Address City/[facility] Co de Phone Number [facility] [address] [place] [address] * (ABNORMAL) IG Profile (04/03/2025 10:11 AM EDT) IGA 838(H) 75 - 400 mg/dL 04/03/2025 11:38 AM EDT [facility] IGG 1,747(H) 720 - 1,589 mg/dL 04/03/2025 11:38 AM EDT [facility] IGM 197 35 - 225 mg/dL 04/03/2025 11:38 AM EDT [facility] Blood Venous blood specimen / Unknown Venipuncture / Unknown 04/03/2025 10:11 AM EDT 04/03/2025 10:41 AM EDT Nj Johns MD LAB BLOOD ORDERABLES Final Res ult [facility] [address] [place] [address] * HEPATITIS B SURFACE ANTIBODY, QUANTITATIVE (04/03/2025 6:38 AM EDT) Hepatitis B Surface Antibody, Quantitative <8.00 NonReactiv e: <8, Grayzone: 8 - <12, Reactive: >= 12 mIU/mL 04/03/2025 8:47 AM EDT [facility] Comment: Nonreactive. Individual is considered not immune to HBV infection. Blood Venous blood specimen / Unknown Venipuncture / Unknown 04/03/2025 6:38 AM EDT 04/03/2025 7:02 AM EDT us Asael Esteves MD LAB BLOOD ORDERABLES Final Resul t Performing Organization Address City/[facility]/ZIP Co de Phone Number [facility] [address] [place] [address] * Hepatitis A Antibody IgG (04/03/2025 6:38 AM EDT) Hepatitis A Antibody IgG Negative Negative 04/03/2025 8:47 AM EDT [facility] Blood Venous blood specimen / Unknown Venipuncture / Unknown 04/03/2025 6:38 AM EDT 04/03/2025 7:02 AM EDT us Asael Esteves MD LAB BLOOD ORDERABLES Final Resul t Performing Organization Address City/[facility]/[place] [address] * Hepatitis C Antibody (04/03/2025 6:38 AM EDT) Hepatitis C Antibody Negative Negative 04/03/2025 7:44 AM EDT [facility] Blood Venous blood specimen / Unknown Venipuncture / Unknown 04/03/2025 6:38 AM EDT 04/03/2025 7:02 AM EDT us Asael Esteves MD LAB BLOOD ORDERABLES Final Resul t Performing Organization Address City/[facility]/[place] [address] * Hepatitis B Surface Antigen (04/03/2025 6:38 AM EDT) Hepatitis B Surf Antigen Negative Negative 04/03/2025 8:47 AM EDT [facility] Blood Venous blood specimen / Unknown Venipuncture / Unknown 04/03/2025 6:38 AM EDT 04/03/2025 7:02 AM EDT Result [facility] Asael Esteves MD LAB BLOOD ORDERABLES Final Resul t [facility] [address] [place] [address] * Creatinine, Plasma (02/26/2025) External Creatinine Blood 0.7 mg/dL Blood Venous blood specimen / Unknown 02/26/2025 Result [facility] Provider LAB BLOOD ORDERABLES Final R esult * Sodium, Plasma (02/26/2025) External Sodium 133 mmol/L Blood Venous blood specimen / Unknown 02/26/2025 Result [facility] Provider LAB BLOOD ORDERABLES Final R esult * Total Bilirubin, Plasma (02/26/2025) External Bilirubin Total 2.5 mg/dL Blood Venous blood specimen / Unknown 02/26/2025 Result [facility] Provider LAB BLOOD ORDERABLES Final R esult * Albumin, Plasma (02/26/2025) External Albumin 3.1 g/dL Blood Venous blood specimen / Unknown 02/26/2025 Result [facility] Historical Provider LAB BLOOD ORDERABLES Final R esult * MR NEURO OUTSIDE IMAGES (02/20/2025 1:19 PM EDT) Anatomical Region Laterality Modality Magnetic Resonan ce 02/20/2025 1:19 PM EDT External Provider IMG MRI PROCEDURES Final Resul t * COLONOSCOPY (06/18/2020) Anatomical Region Laterality Modality Endoscopy Narrative 06/18/2020 Ordered by an unspecified provider. Historical Provider GI PROCEDURE ORDERABLES Jennifer l Result from Last 3 Months or Most Recently Relevant to Health Maintenance Insurance [employer] MEDICAID [employer]ICAID Care Teams Instructional Resource Teacher Relationship Specialty Start Date End Date Trevor Rolon DO [address] [facility] [address] [place] [address] PCP - General 11/22/20 Mc Grant DO [address] [facility] [address] [place] [address] Referring Physician Gastroenterology 8/12/24 El Agarwal APRN [address] [place] [address] Referring Physician Gastroenterology 03/21/25
--- OUTSIDE RECORDS SUMMARY | 2025-05-23 23:27 | XMS_ITS | Encounter Summary ---
Author Organization [facility] Address [address] [place] [address] Care Team Providers Care Finance Controller Name Role Phone Trevor Rolon DO Primary Care Provider [phone] Mc Grant DO Unavailable [phone] El Agarwal SUPERVISOR FABRICATION Unavailable [phone] Encounter Details Date Type Department Care Team (Late st Contact Info) Description 04/12/2025 Telephone [facility] Trans[facility] [address] [facility] [address] [place] [address] Madyson Sarabia, RN [id number] [address] [place] [address] Social History Tobacco Use Types [...] patient. She adv she had labs at [facility]. She adv she has gained 19 lbs since her visit last week, and gained 7 lbs overnight. documented in this encounter Plan of Treatment Upcoming Encounters Date Type Department Care Team (Late st Contact Info) Description 05/25/2025 11:30 AM EST Appointment [facility] Radiology [address] [place] [address] 05/25/2025 2:00 PM EST Appointment PAV Gauri Pulmonary Function Testing 800 [place] [address] 05/25/2025 3:30 PM EST Appointment Cardiac Imaging [address] [place] [address] 05/31/2025 4:30 PM EST Appointment [facility] [address] 800 [place] [address] 06/12/2025 2:30 PM EST Office Visit [facility] [place] [address] [facility], [address] [place] [address] Juana Gale, SUPERVISOR FABRICATION [address] [place] [address] 06/20/2025 10:30 AM EST Procedure Visit [facility] [address], 1st [place] [address] Claire Davidson MD [address] [place] [address] 06/21/2025 2:00 PM EST Office Visit [facility] [address] [facility], [address] [place] [address] Claire Davidson MD [address] [place] [address] 07/17/2025 8:45 AM EST Clinical Support [facility] [address] [place] [address] 07/17/2025 10:30 AM EST Office Visit [facility] [address] [place] [address] Nj Johns MD [address] [place] [address] documented as of this encounter Procedures Procedure [...] Venous blood specimen / Unknown 04/19/2025 Result [facility] LAB BLOOD ORDERABLES Final R esult * CBC W/O Differential (04/19/2025) Pathologist [facility] External WBC 8.8 External Red Blood Cell (RBC) 3.69 External Hemoglobin (Hgb) 12.80 External Hematocrit (Hct) 36.9 External Platelet Count (Plt) 98 Blood Venous blood specimen / Unknown 04/19/2025 Result [facility] LAB BLOOD ORDERABLES Final R esult * Comprehensive Metabolic Panel, Plasma (04/11/2025) Pathologist [facility] External Glucose 130 External BUN 24 External [...] Venous blood specimen / Unknown 04/11/2025 Result [facility] LAB BLOOD ORDERABLES Final R esult * CBC W/O Differential (04/11/2025) External WBC 9.3 External Red Blood Cell (RBC) 3.55 External Hemoglobin (Hgb) 12.20 External Hematocrit (Hct) 35.1 External Platelet Count (Plt) 78 Blood Venous blood specimen / Unknown 04/11/2025 [facility] Provider LAB BLOOD ORDERABLES Final R esult * Prothrombin Time/INR (04/11/2025) External Prothrombin Time (PT) 13.1 External INR - Internormal Ratio 1.2 Blood Venous blood specimen / Unknown 04/11/2025 Historical Provider LAB BLOOD ORDERABLES Final R [...] documented as of this encounter Care Teams Finance Controller Relationship Specialty Start Date End Date Trevor Rolon DO [address] [facility] [address] [place] [address] PCP - General 11/22/20 Mc Grant DO [address] [facility] [address] [place] [address] Referring Physician Gastroenterology 02/21/24 El Agarwal APRN [address] [place] [address] Referring Physician Gastroenterology 03/21/25 documented as of this encounter
--- OUTSIDE RECORDS SUMMARY | 2025-05-23 23:27 | XMS_ITS | Encounter Summary ---
Author Organization [facility] nter Address [address] [place] [address] Care Team Providers Care Data Processing Equipment Repairer Name Role Phone Trevor Rolon DO Primary Care Provider Lucy Christopher DO Unavailable Encounter Details Date Type Department Care Team (Late st Contact Info) Description 12/10/2022 Orders Only [facility] [address], 8th [place] [address] Lupe Villalta, BUMPER STRAIGHTENER [address] [facility] [address] Social History Tobacco Use Types [...] Description 06/18/2025 10:30 AM EST Office Visit [facility] GASTROENTEROLOGY PRACTICE [address] 2nd [place] [address] 06/27/2025 10:00 AM EST Office Visit [facility] SLEEP LAB PRACTICE [address] [place] [address] Demario Silva DO 911 [place] [address] 08/16/2025 10:00 AM EST Office Visit [facility] ENDOCRINOLOGY PRACTICE [address] 8th [place] [address] Brigitte Mahoney NP 911 [place] [address] 09/18/2025 1:30 PM EDT Office Visit [facility] RHEUMATOLOGY PRACTICE [address], 8th Floor [facility] [place] [address] Suman Treviño MD [address] [place] [address] 12/13/2025 1:15 PM EDT Office Visit [facility] OBGYN PRACTICE [address], 7th [place] [address] Janice Woodward, CLAU [address] [place] [address] documented as of this encounter Visit Diagnoses Not on filedocumented in this encounter Additional Health Concerns Assessment Noted Time PHQ-9 Depression Total Score: 0 07/24/19 23 3:00 PM EST documented as of this encounter Care Teams Data Processing Equipment Repairer Relationship Specialty Start Date End Date Trevor Rolon DO [address] [facility] [address] [place] [address] PCP - General Lucy Christopher DO [address] [place] [address] Consulting Physician Oncology 10/17/24 documented as of this encounter
--- OUTSIDE RECORDS SUMMARY | 2025-05-23 23:27 | XMS_ITS | Encounter Summary ---
Author Organization [facility] Address [address] [place] [address] Care Team Providers Care Research Nutritionist Name Role Phone Trevor Rolon DO Primary Care Provider Mc Grant DO Unavailable [phone] El Agarwal DEVELOPER PROVER UPHOLSTERING Unavailable [phone] Encounter Details Date Type Department Care Team (Late st Contact Info) Description 03/28/2025 Telephone [facility] Transplant Center [address] [facility] [address] [place] [address] Sharri Almonte [place] [id number] Social History Tobacco Use Types Packs/Day Years [...] 04/02 - provided alternate contact for Laquita Coley ([phone]). documented in this encounter Plan of Treatment Upcoming Encounters Date Type Department Care Team (Late st Contact Info) Description 05/25/2025 11:30 AM EST Appointment P[facility] G Radiology [address] [place] [address] 05/25/2025 2:00 PM EST Appointment PAV H Pulmonary Function Testing 800 [place] [address] 05/25/2025 3:30 PM EST Appointment Cardiac Imaging [address] [place] [address] 05/31/2025 4:30 PM EST Appointment [facility] [address] 800 [place] [address] 06/12/2025 2:30 PM EST Office Visit [facility] [place] [address] [facility], [address] [place] [address] Juana Gale APRN 800 [place] [address] 06/20/2025 10:30 AM EST Procedure Visit [place] [facility] [address], 1st [place] [address] Claire Davidson MD [address] [place] [address] 06/21/2025 2:00 PM EST Office Visit [facility] [address] [facility], [address] [place] [address] Claire Davidson MD [address] [place] [address] 07/17/2025 8:45 AM EST Clinical Support [facility] Transplant [place] [address] [place] [address] 07/17/2025 10:30 AM EST Office Visit [facility] [place] [address] [facility] [address] [place] [address] Nj Johns MD [address] [place] [address] documented as of this encounter Visit Diagnoses Not on filedocumented in this encounter Additional Health Concerns Assessment Noted Time PHQ-9 Depression Total Score: 12 08 024 7:48 AM EDT A fall risk assessment has been complete d for the patient 03/08/2025 8:18 AM EDT A Body Mass Index follow-up plan has been documented for the patient 03/08/2025 9:29 AM EDT documented as of this encounter Care Teams Research Nutritionist Relationship Specialty Start Date End Date Trevor Rolon DO [address] [place] [address] PCP - General 11/22/20 Mc Grant DO [address] [facility] 201 [place] [address] Referring Physician Gastroenterology 02/21/24 El Agarwal APRN [address] [place] [address] Referring Physician Gastroenterology 03/21/25 documented as of this encounter
--- OUTSIDE RECORDS SUMMARY | 2025-05-23 23:27 | XMS_ITS | Encounter Summary ---
Author Organization [facility] Address [address] [place] [address] Care Team Providers Care Gericare Aide Teacher Name Role Phone Trevor Rolon DO Primary Care Provider [phone] Mc Grant DO Unavailable [phone] El Agarwal SENIOR PAYROLL ADMINISTRATOR Unavailable [phone] Encounter Details Date Type Department Care [...] overeating Nearly every day 04/03/2025 7:06 AM EDSanford Wagner Feeling bad about yourself - or that [...] Assessment Author Very difficult 04/03/2025 7:06 AM EDEloisa Wagner documented as of this encounter Plan of Treatment Upcoming Encounters Date Type Department Care Team (Late st Contact Info) Description 05/25/2025 11:30 AM EST Appointment [facility] R[facility] Radiology [address] [place] [address] 05/25/2025 2:00 PM EST Appointment PAV H Pulmonary Function Testing [address] [place] [address] 05/25/2025 3:30 PM EST Appointment Cardiac Imaging [address] [place] [address] 05/31/2025 4:30 PM EST Appointment [facility] [address] [place] [address] 06/12/2025 2:30 PM EST Office Visit [facility] [place] [address] [facility], [address] [place] [address] Juana Gale, SENIOR PAYROLL ADMINISTRATOR [address] [place] [address] 06/20/2025 10:30 AM EST Procedure Visit [facility] [address], 1st [place] [address] Claire Davidson MD [address] [place] [address] 06/21/2025 2:00 PM EST Office Visit [facility] Special[facility] [address] [facility], [address] [place] [address] Claire Davidson MD [address] [place] [address] 07/17/2025 8:45 AM EST Clinical Support [facility] Transplant Center [address] [place] [address] 07/17/2025 10:30 AM EST Office Visit [facility] [address] [place] [address] Nj Johns MD [address] [place] [address] documented as of this encounter [...] documented as of this encounter Care Teams Gericare Aide Teacher Relationship Specialty Start Date End Date Trevor Rolon DO [address] [facility] 201 [place] [address] PCP - General 11/22/20 Mc Grant DO [address] [facility] 201 [place] [address] Referring Physician Gastroenterology 02/21/24 El Agarwal APRN [address] [place] [address] Referring Physician Gastroenterology 03/21/25 documented as of this encounter
--- OUTSIDE RECORDS SUMMARY | 2025-05-23 23:27 | XMS_ITS | Encounter Summary ---
Author Organization [facility] Address [address] [place] [address] Care Team Providers Care Live In Companion Name Role Phone Trevor Rolon DO Primary Care Provider Mc Grant DO Unavailable [phone] El Agarwal BENEFITS ASSISTANT Unavailable [phone] Encounter Details Date Type Department Care Team (Latest Contact Info) Description 05/22/2025 Travel Social History Tobacco Use Types Packs/Day [...] EST Appointment PAV G Radiology [address] [place] [address] 05/25/2025 2:00 PM EST Appointment LO[facility] Ast[facility]a Pulmonary Function Testing 800 [place] [address] 05/25/2025 3:30 PM EST Appointment Cardiac Imaging [address] [place] [address] 05/31/2025 4:30 PM EST Appointment [facility] [address] [place] [address] 06/12/2025 2:30 PM EST Office Visit [facility] [place] [address] [facility], [address] [place] [address] Juana Gale APRN 800 [place] [address] 06/20/2025 10:30 AM EST Procedure Visit [facility] [address], 1st [place] [address] Claire Davidson MD [address] [address] 06/21/2025 2:00 PM EST Office Visit [facility] [address] [facility], [address] [place] [address] Claire Davidson MD [address] [place] [address] [place] [address] 07/17/2025 8:45 AM EST Clinical Support [facility] Transplant Center [address] [address] 07/17/2025 10:30 AM EST Office Visit [facility] Transplant [place] [address] [address] Nj Johns MD [address] [place] [address] [place] [address] documented as of this encounter Visit Diagnoses [...] documented as of this encounter Care Teams Live In Companion Relationship Specialty Start Date End Date Trevor Rolon DO [address] [facility] [address] [place] [address] PCP - General 11/22/20 Mc Grant DO [address] [facility] [address] [place] [address] Referring Physician Gastroenterology 02/21/24 El Agarwal APRN [address] [place] [address] Referring Physician Gastroenterology 03/21/25 documented as of this encounter
--- OUTSIDE RECORDS SUMMARY | 2025-05-23 23:27 | XMS_ITS | Encounter Summary ---
Author Organization [facility] Address [address] [place] [address] Care Team Providers Care Dictionary Editor Name Role Phone Trevor Rolon DO Primary Care Provider Mc Grant DO Unavailable [phone] El Agarwal BUTTON CUTTER Unavailable [phone] Encounter Details Date Type Department Care [...] EST Appointment PAV G Radiology [address] [place] [address] 05/25/2025 2:00 PM EST Appointment LO[facility] Ast[facility] Pulmonary Function Testing 800 [place] [address] 05/25/2025 3:30 PM EST Appointment Cardiac Imaging [address] [place] [address] 05/31/2025 4:30 PM EST Appointment [facility] [address] 800 [place] [address] 06/12/2025 2:30 PM EST Office Visit [facility] [place] [address] [facility], [address] [place] [address] Juana Gale APRN 800 [place] [address] 06/20/2025 10:30 AM EST Procedure Visit [facility] [address], 1st [place] [address] Claire Davidson MD [address] [address] 06/21/2025 2:00 PM EST Office Visit Professional [facility] Specialty Care Clinic [address] [facility], [address] [place] [address] Claire Davidson MD [address] [place] [id number] [place] [address] 07/17/2025 8:45 AM EST Clinical Support [facility] [address] [address] 07/17/2025 10:30 AM EST Office Visit [facility] [place] [address] [address] Nj Johns MD [address] [facility] [address] [place] [address] documented as of this encounter Visit Diagnoses [...] documented as of this encounter Care Teams Dictionary Editor Relationship Specialty Start Date End Date Trevor Rolon DO [address] [facility] 201 [place] [address] PCP - General 11/22/20 Mc Grant DO [address] [facility] 201 [place] [address] Referring Physician Gastroenterology 02/21/24 El Agarwal APRN [address] [place] [address] Referring Physician Gastroenterology 03/21/25 documented as of this encounter
--- OUTSIDE RECORDS SUMMARY | 2025-05-23 23:28 | XMS_ITS | Encounter Summary ---
Author Organization [facility] nter Address [address] [place] [address] Care Team Providers Care Warp Tension Tester Name Role Phone Trevor Rolon DO Primary Care Provider Lucy Christopher DO Unavailable Encounter Details Date Type Department Care Team (Late st Contact Info) Description 01/08/2023 Orders Only [facility] [address], 8th [place] [address] Brigitte Mahoney, CLAU [address] [place] [address] Social History Tobacco Use Types [...] [facility] GASTROENTEROLOGY PRACTICE [address] 2nd [place] [address] 06/27/2025 10:00 AM EST Office Visit [facility] SLEEP LAB PRACTICE [address] [place] [address] Demario Silva DO [address] [place] [address] 08/16/2025 10:00 AM EST Office Visit [facility] ENDOCRINOLOGY PRACTICE [address] 8th [place] [address] Brigitte Mahoney NP [address] [place] [address] 09/18/2025 1:30 PM EDT Office Visit [facility] RHEUMATOLOGY PRACTICE [address], 8th [place] [address] Suman Treviño MD [address] [facility] [place] [address] 12/13/2025 1:15 PM EDT Office Visit [facility] OBGYN PRACTICE [address], 7th [place] [address] Janice Woodward, CLAU [address] [place] [address] documented as of this encounter Visit Diagnoses Not on filedocumented in this encounter Additional Health Concerns Assessment Noted Time PHQ-9 Depression Total Score: 0 07/24/19 23 3:00 PM EST documented as of this encounter Care Teams Warp Tension Tester Relationship Specialty Start Date End Date Trevor Rolon DO [address] [facility] [address] [place] [address] PCP - General Lucy Christopher DO [address] [facility] [place] [address] Consulting Physician Oncology 10/17/24 documented as of this encounter
--- OUTSIDE RECORDS SUMMARY | 2025-05-23 23:28 | XMS_ITS | Encounter Summary ---
Author Organization [facility] Address [address] [place] [address] Care Team Providers Care Director Counseling Bureau Name Role Phone Trevor Rolon DO Primary Care Provider [phone] Mc Grant DO Unavailable [phone] El Agarwal TECHNICAL HEALTHCARE CONSULTANT Unavailable [phone] Encounter Details Date Type Department Care Team (Latest Contact Info) Description 05/08/2025 Travel Social History Tobacco Use Types Packs/Day [...] EST Appointment P[facility] G Radiology [address] [place] [address] 05/25/2025 2:00 PM EST Appointment [facility] Pulmonary Function Testing [address] [place] [address] 05/25/2025 3:30 PM EST Appointment Cardiac Imaging [address] [place] [address] 05/31/2025 4:30 PM EST Appointment [facility] Breast [facility] Comprehensive [facility] [address] [place] [address] 06/12/2025 2:30 PM EST Office Visit [facility] [place] [address] [facility], [address] [place] [address] Juana Gale APRN [address] [place] [address] 06/20/2025 10:30 AM EST Procedure Visit [facility] [address], 1st [place] [address] Claire Davidson MD [address] [address] 06/21/2025 2:00 PM EST Office Visit [facility] Clinic [address] [facility], [address] [place] [address] Claire Davidson MD [address] [place] [place] [address] 07/17/2025 8:45 AM EST Clinical Support [facility] [address] [address] 07/17/2025 10:30 AM EST Office Visit [facility] [place] [address] [address] Nj Johns MD [address] [facility] [address] [place] [address] documented as of this encounter Visit Diagnoses [...] as of this encounter Care Teams Director Counseling Bureau Relationship Specialty Start Date End Date Trevor Rolon DO [address] [facility] 201 [place] [address] PCP - General 11/22/20 Mc Grant DO [address] [facility] 201 [place] [address] Referring Physician Gastroenterology 02/21/24 El Agarwal APRN [address] [place] [address] Referring Physician Gastroenterology 03/21/25 documented as of this encounter
--- OUTSIDE RECORDS SUMMARY | 2025-05-23 23:28 | XMS_ITS | Encounter Summary ---
Author Organization [facility] Address [address] [place] [address] Care Team Providers Care Geriatric Nurse Practitioner Name Role Phone Trevor Rolon DO Primary Care Provider Mc Grant DO Unavailable [phone] El Agarwal FARM BUTCHER Unavailable [phone] Encounter Details Date Type Department Care Team (Late st Contact Info) Description 05/17/[address] [facility] [address] [facility] [address] [place] [phone] Madyson Sarabia, RN [id number] [address] [place] [address] Social History Tobacco Use Types [...] Upcoming Encounters Date Type Department Care Team ([facility] st Contact Info) Description 05/25/2025 11:30 AM EST Appointment [facility] Radiology [address] [place] [address] 05/25/2025 2:00 PM EST Appointment [facility] H Pulmonary Function Testing [address] [place] [address] 05/25/2025 3:30 PM EST Appointment Cardiac Imaging [address] [place] [address] 05/31/2025 4:30 PM EST Appointment [facility] [address] [facility] [address] [place] [address] 06/12/2025 2:30 PM EST Office Visit [facility] [place] [address] [facility], [address] [place] [address] Juana Gale, FARM BUTCHER [address] [place] [address] 06/20/2025 10:30 AM EST Procedure Visit [facility] [address], 1st [place] [address] Claire Davidson MD [address] [place] [address] 06/21/2025 2:00 PM EST Office Visit [facility] [address] [facility], [address] [place] [address] Claire Davidson MD [address] [facility] [address] [place] [address] 07/17/2025 8:45 AM EST Clinical Support [facility] [address] [facility] [address] [place] [address] 07/17/2025 10:30 AM EST Office Visit [facility] [address] [place] [address] Nj Johns MD [address] [place] [address] documented as of this encounter Visit Diagnoses [...] documented as of this encounter Care Teams Geriatric Nurse Practitioner Relationship Specialty Start Date End Date Trevor Rolon DO [address] [facility] 201 [place] [address] PCP - General 11/22/20 Mc Grant DO [address] [facility] 201 [place] [address] Referring Physician Gastroenterology 02/21/24 El Agarwal APRN [address] [place] [address] Referring Physician Gastroenterology 03/21/25 documented as of this encounter
--- OUTSIDE RECORDS SUMMARY | 2025-05-23 23:28 | XMS_ITS | Encounter Summary ---
Author Organization [facility] nter Address [address] [place] [address] Care Team Providers Care Sales And Retail Management Recruiter Name Role Phone Trevor Rolon DO Primary Care Provider Lucy Christopher DO Unavailable Reason for Visit * Reason Comments Med Refill Encounter Details Date Type Department Care Team (Late st Contact Info) Description 07/06/2024 Refill [facility] ENDOCRINOLOGY PRACTICE [address], 8th Floor Clinic [place] [address] Brigitte Mahoney, CLAU [address] [place] [address] Social History Tobacco Use Types [...] GASTROENTEROLOGY PRACTICE [address], 2nd [place] [address] 06/27/2025 10:00 AM EST Office Visit [facility] SLEEP LAB PRACTICE [address] [place] [address] Demario Silva DO [address] [place] [address] 08/16/2025 10:00 AM EST Office Visit [facility] ENDOCRINOLOGY PRACTICE [address], 8th [place] [address] Brigitte Mahoney NP [address] Bld[address] A [place] [address] 09/18/2025 1:30 PM EDT Office Visit [facility] RHEUMATOLOGY PRACTICE [address], 8th Floor Clinic [place] [address] Suman Treviño MD [address] [place] [address] 12/13/2025 1:15 PM EDT Office Visit [facility] OBGYN PRACTICE [address], 7th [place] [address] Janice Woodward NP [address] [place] [facility] documented as of this encounter Visit Diagnoses Not on filedocumented in this encounter Additional Health Concerns Assessment Noted Time PHQ-9 Depression Total Score: 0 07/24/19 23 3:00 PM EST documented as of this encounter Care Teams Sales And Retail Management Recruiter Relationship Specialty Start Date End Date Trevor Rolon DO [address] [facility] [address] [place] [phone] PCP - General Lucy Christopher DO [address] [place] [address] Consulting Physician Oncology 10/17/24 documented as of this encounter
--- OUTSIDE RECORDS SUMMARY | 2025-05-23 23:28 | XMS_ITS | Encounter Summary ---
Author Organization [facility] nter Address [address] [place] [address] Care Team Providers Care Chief Passenger Ship Steward/Stewardess Name Role Phone Trevor Rolon DO Primary Care Provider Lucy Christopher DO Unavailable Reason for Visit * Reason Comments Med Refill Encounter Details Date Type Department Care Team (Late st Contact Info) Description 10/01/2023 Refill [facility] NEUROLOGY PRACTICE [address], 8th Floor Clinic [place] [phone] Lupe Villalta, CLERICAL CAR CHECKER [address] [facility] [place] [address] Social History Tobacco Use Types [...] Description 06/18/2025 10:30 AM EST Office Visit [facility] GASTROENTEROLOGY PRACTICE [address] 2nd [place] [address] 06/27/2025 10:00 AM EST Office Visit [facility] [address] [place] [phone] Demario Silva DO [address] [place] [address] 08/16/2025 10:00 AM EST Office Visit [facility] ENDOCRIN[facility] [address] 8th [place] [address] Brigitte Mahoney NP [address] [place] [address] 09/18/2025 1:30 PM EDT Office Visit [facility] RHEUMAT[facility] [address] 8th [place] [address] Suman Treviño MD [address] [facility]. [place] [address] 12/13/2025 1:15 PM EDT Office Visit [facility] [address], 7th [place] [address] Janice Woodward, CLAU [address] [place] [address] documented as of this encounter Visit Diagnoses Not on filedocumented in this encounter Additional Health Concerns Assessment Noted Time PHQ-9 Depression Total Score: 0 07/24/19 23 3:00 PM EST documented as of this encounter Care Teams Chief Passenger Ship Steward/Stewardess Relationship Specialty Start Date End Date Trevor Rolon DO [address] [facility] [address] [place] [address] PCP - General Lucy Christopher DO [address] [facility] [place] [address] Consulting Physician Oncology 10/17/24 documented as of this encounter
--- OUTSIDE RECORDS SUMMARY | 2025-05-23 23:28 | XMS_ITS | Encounter Summary ---
Author Organization [facility] nter Address [address] [place] [address] Care Team Providers Care Secretary To The Vice President Name Role Phone Trevor Rolon DO Primary Care Provider Lucy Christopher DO Unavailable Encounter Details Date Type Department Care Team (Late st Contact Info) Description 05/16/2025 Abstract [facility] [address], 7th Floor Clinic [place] [phone] Janice Woodward, CLAU [address] [place] [address] Social History Tobacco Use Types Packs/Day Years [...] do you attend [facility] or sabianist services? More than 4 times [...] Description 06/18/2025 10:30 AM EST Office Visit [facility] GASTROENTEROLOGY PRACTICE [address] 2nd [place] [address] 06/27/2025 10:00 AM EST Office Visit [facility] [address] [place] [address] Demario Silva DO 911 [place] [address] 08/16/2025 10:00 AM EST Office Visit [facility] ENDOCRIN[facility] [address] 8th [place] [address] Brigitte Mahoney NP 911 [place] [address] 09/18/2025 1:30 PM EDT Office Visit [facility]HEUMAT[facility] [address] 8th [place] [address] Suman Treviño MD [address] [place] [address] 12/13/2025 1:15 PM EDT Office Visit [facility] [address], 7th Floor Clinic [place] [phone] Janice Woodward, CLAU [address] [place] [facility] documented as of this encounter Visit Diagnoses Not on filedocumented in this encounter Additional Health Concerns Assessment Noted Time PHQ-9 Depression Total Score: 0 07/24/19 23 3:00 PM EST documented as of this encounter Care Teams Secretary To The Vice President Relationship Specialty Start Date End Date Trevor Rolon DO [address] [facility] [address] [place] [phone] PCP - General Lucy Christopher DO [address] [place] [address] Consulting Physician Oncology 10/17/24 documented as of this encounter
--- OUTSIDE RECORDS SUMMARY | 2025-05-23 23:28 | XMS_ITS | Encounter Summary ---
Author Organization [facility] Address [address] [place] [address] Care Team Providers Care Impact Retail Service Merchandiser Name Role Phone Trevor Rolon DO Primary Care Provider Lucy Christopher DO Unavailable Encounter Details Date Type Department Care Team (Late st Contact Info) Description 08/08/2024 Orders Only [facility]IN[facility] [address], 8th [place] [address] Brigitte Mahoney, CLAU [address] [place] [address] Social History Tobacco Use Types [...] How often do you attend chur or episcopalian services? More than 4 times [...] [facility] GASTROENTEROLOGY PRACTICE [address] 2nd [place] [address] 06/27/2025 10:00 AM EST Office Visit [facility] SLEEP LAB PRACTICE [address] [place] [address] Demario Silva DO 911 [place] [address] 08/16/2025 10:00 AM EST Office Visit [facility]IN[facility] [address] 8th [place] [address] Brigitte Mahoney NP 1 [place] [address] 09/18/2025 1:30 PM EDT Office Visit [facility]HEUMATOLOG[facility] [address] 8th [place] [address] Suman Treviño MD [address] [place] [address] 12/13/2025 1:15 PM EDT Office Visit [facility] [address], 7th Floor Clinic [place] [address] Janice Woodward, CLAU [address] [place] [address] documented as of this encounter Visit Diagnoses Not on filedocumented in this encounter Additional Health Concerns Assessment Noted Time PHQ-9 Depression Total Score: 0 07/24/19 23 3:00 PM EST documented as of this encounter Care Teams Impact Retail Service Merchandiser Relationship Specialty Start Date End Date Trevor Rolon DO [address] [facility] [address] [place] [phone] PCP - General Lucy Christopher DO [address] [place] [address] Consulting Physician Oncology 10/17/24 documented as of this encounter
--- OUTSIDE RECORDS SUMMARY | 2025-05-23 23:28 | XMS_ITS | Encounter Summary ---
Author Organization [facility] nter Address [address] [place] [address] Care Team Providers Care Transition Coach Name Role Phone Trevor Rolon DO Primary Care Provider Lucy Christopher DO Unavailable Reason for Visit * Reason Onset Date Comments transplant paper 05/10/2025 Encounter Details Date Type Department Care Team (Late st Contact Info) Description 05/10/2025 Telephone [facility] [address], 7th Floor Clinic [place] [phone] Janice Woodward, CLAU [address] [place] [address] transplant paper Social History Tobacco Use Types Packs/Day Years [...] encounter Miscellaneous Notes * Telephone Encounter - Hayley Rivera RN - 05/16/2025 8:58 AM EST Patient notified. * Telephone Encounter - Aixa Sanchez - 05/10/2025 12:33 PM EDT Patient called needing transplant form filled out, scanned under media today, needs faxed back thisweek, thanks documented in this encounter Plan of Treatment Upcoming Encounters Date Type Department Care Team (Late st Contact Info) Description 06/18/2025 10:30 AM EST Office Visit [facility] GASTROENTEROLOGY PRACTICE [address], 2nd [place] [address] 06/27/2025 10:00 AM EST Office Visit [facility] SLEEP LAB PRACTICE [address], [place] [address] Demario Silva DO [address] [facility] [place] [address] 08/16/2025 10:00 AM EST Office Visit [facility] ENDOCRINOLOGY PRACTICE [address], 8th Floor Clinic [place] [phone] Brigitte Mahoney NP [address] [facility] [place] [address] 09/18/2025 1:30 PM EDT Office Visit [facility] RHEUMATOLOGY PRACTICE [address], 8th [place] [address] Suman Treviño MD [address] [facility]. Katie [facility] [place] [address] 12/13/2025 1:15 PM EDT Office Visit [facility] OBGYN PRACTICE [address], 7th [place] [address] Janice Woodward, CLAU [address] [place] [address] documented as of this encounter Visit Diagnoses Not on filedocumented in this encounter Additional Health Concerns Assessment Noted Time PHQ-9 Depression Total Score: 0 07/24/19 23 3:00 PM EST documented as of this encounter Care Teams Transition Coach Relationship Specialty Start Date End Date Trevor Rolon DO [address] [facility] [address] [place] [address] PCP - General Lucy Christopher DO [address] [facility] [place] [address] Consulting Physician Oncology 10/17/24 documented as of this encounter
--- OUTSIDE RECORDS SUMMARY | 2025-05-23 23:28 | XMS_ITS | Encounter Summary ---
Author Organization [facility] nter Address [address] [place] [address] Care Team Providers Care Head Housekeeper Name Role Phone Trevor Rolon DO Primary Care Provider Lucy Christopher DO Unavailable Encounter Details Date Type Department Care Team (Late st Contact Info) Description 10/06/[address] [facility] NEUROLOGY PRACTICE [facility] [address] [facility], [address] [place] [address] Lupe Villalta, MORTGAGE LOAN OFFICER [address] [facility] [place] [address] Social History Tobacco Use Types [...] How often do you attend chur or samaritan services? More than 4 times per year 07/24/2022 Do you belong to any clubs o r organizations such as holiness groups, unions, fraternal or athletic groups, or [...] Description 06/18/2025 10:30 AM EST Office Visit [facility] GASTROENTEROLOGY PRACTICE [address] 2nd [place] [address] 06/27/2025 10:00 AM EST Office Visit [facility] [address] [place] [address] Demario Silva DO 911 [place] [address] 08/16/2025 10:00 AM EST Office Visit [facility] [address] 8th [place] [address] Brigitte Mahoney NP 1 [place] [address] 09/18/2025 1:30 PM EDT Office Visit [facility]HEUMAT[facility] [address] , 8th Floor [place] [phone] Suman Treviño MD [address] [place] [address] 12/13/2025 1:15 PM EDT Office Visit [facility] [address], 7th [place] [address] Janice Woodward, CLAU [address] [place] [address] documented as of this encounter Visit Diagnoses Not on filedocumented in this encounter Additional Health Concerns Assessment Noted Time PHQ-9 Depression Total Score: 0 07/24/19 23 3:00 PM EST documented as of this encounter Care Teams Head Housekeeper Relationship Specialty Start Date End Date Trevor Rolon DO [address] [facility] [address] [place] [address] PCP - General Lucy Christopher DO [address] [place] [address] Consulting Physician Oncology 10/17/24 documented as of this encounter
--- OUTSIDE RECORDS SUMMARY | 2025-05-23 23:28 | XMS_ITS | Clinical Summary ---
Author Organization [facility] yste Address [address] [place] [address] Care Team Providers Care Hand Flatwork Finisher Name Role Phone John Cowan MD Primary Care Provider [phone] Social History Tobacco Use Types Packs/Day Years [...] Narrative 04/17/2015 10:47 AM EDT Exam Room: [facility] RM 1 Exam Start: [id number] Exam Stop: [id number] HISTORY- Screening Mammography. Low Dose full field [...] RadiologistAhmet AVILA Released Date Time- 04/17/15 1049 Milk Condenser- S.S. Read By: MARILEE AVILA Released By: MARILEE AVILA Procedure Note Marilee Gabriel MD - 05/05/2015 Exam Room: [facility] 1 Exam Start: [id number] Exam Stop: [id number] HISTORY- Screening Mammography. Low Dose full field [...] MARILEE AVILA Released Date Time- 04/17/15 1049 Milk Condenser- S.S. Read By: MARILEE AVILA Released By: MARILEE AVILA Pierre Orozco MD IM MAMMOGRAPHY ORDERABL ES Final Result from Last 3 Months or Most Recently Relevant to Health Maintenance Care Teams Hand Flatwork Finisher Relationship Specialty Start Date End Date John Cowan MD [address] [place] [address] PCP - General 04/16/15
--- OUTSIDE RECORDS SUMMARY | 2025-05-23 23:28 | XMS_ITS | Encounter Summary ---
Author Organization [facility] Address [address] [place] [address] Care Team Providers Care Funeral Home Location Manager Name Role Phone Trevor Rolon DO Primary Care Provider [phone] Mc Grant DO Unavailable [phone] El Agarwal AUTO PAINTER Unavailable [phone] Encounter Details Date Type Department Care Team (Late st Contact Info) Description 05/14/2025 Telephone [facility] Radiology [address] [place] [address] Shelby Escamilla, RN [facility] Social History Tobacco Use Types Packs/Day Years [...] EST Appointment [facility] Radiology [address] [place] [address] 05/25/2025 2:00 PM EST Appointment [facility] Pulmonary Function Testing [address] [place] [address] 05/25/2025 3:30 PM EST Appointment Cardiac Imaging [address] [place] [address] 05/31/2025 4:30 PM EST Appointment [facility] Breast Care [facility] [address] [place] [address] 06/12/2025 2:30 PM EST Office Visit [facility] [place] [address] [facility], [address] [place] [address] Juana Gale, AUTO PAINTER 800 [place] [address] 06/20/2025 10:30 AM EST Procedure Visit [facility] [address], 1st [place] [address] Claire Davidson MD [id number] [place] [address] 06/21/2025 2:00 PM EST [facility] Visit [facility] [address] [facility], [address] [place] [address] Claire Davidson MD [address] [facility] [address] [place] [address] 07/17/2025 8:45 AM EST Clinical Support [facility] [address] [facility] [address] [place] [address] 07/17/2025 10:30 AM EST Office Visit [facility] [address] [place] [address] Nj Johns MD [address] [place] [address] documented as of this encounter Visit Diagnoses [...] documented as of this encounter Care Teams Funeral Home Location Manager Relationship Specialty Start Date End Date Trveor Rolon DO [address] [facility] [address] [place] [address] PCP - General 11/22/20 Mc Grant DO [address] [facility] 201 [place] [address] Referring Physician Gastroenterology 02/21/24 El Agarwal APRN [address] [place] [address] Referring Physician Gastroenterology 03/21/25 documented as of this encounter
--- OUTSIDE RECORDS SUMMARY | 2025-05-23 23:28 | XMS_ITS | Encounter Summary ---
Author Organization [facility] nter Address [address] [place] [address] Care Team Providers Care Orange Picker Name Role Phone Trevor Rolon DO Primary Care Provider Lucy Christopher DO Unavailable Encounter Details Date Type Department Care Team (Late st Contact Info) Description 07/17/2024 Orders Only [facility] [address], 8th [place] [address] Lupe Villalta, DATA OPERATIONS DIRECTOR [address] [facility] [place] [address] Social History Tobacco Use Types [...] How often do you attend chur or jehovah's witness services? More than 4 times per year 07/24/2022 Do you belong to any clubs o r organizations such as taoist groups, unions, fraternal or athletic groups, or [...] [facility] GASTROENTEROLOGY PRACTICE [address] 2nd [place] [address] 06/27/2025 10:00 AM EST Office Visit [facility] [address] [place] [address] Demario Silva DO 1 [place] [address] 08/16/2025 10:00 AM EST Office Visit [facility] [address] 8th [place] [address] Brigitte Mahoney NP 1 [place] [address] 09/18/2025 1:30 PM EDT Office Visit [facility]HEUMAT[facility] [address] 8th [place] [address] Suman Treviño MD [address] [place] [address] 12/13/2025 1:15 PM EDT Office Visit [facility] [address], 7th Floor [place] [address] Janice Woodward, CLAU [address] [place] [facility] documented as of this encounter Visit Diagnoses Not on filedocumented in this encounter Additional Health Concerns Assessment Noted Time PHQ-9 Depression Total Score: 0 07/24/19 23 3:00 PM EST documented as of this encounter Care Teams Orange Picker Relationship Specialty Start Date End Date Trevor Rolon DO [address] [facility] [address] [place] [address] PCP - General Lucy Christopher DO [address] [place] [address] Consulting Physician Oncology 10/17/24 documented as of this encounter
--- OUTSIDE RECORDS SUMMARY | 2025-05-23 23:28 | XMS_ITS | Encounter Summary ---
Author Organization [facility] Address [address] [place] [address] Care Team Providers Care Bilingual Branch Manager Name Role Phone Trevor Rolon DO Primary Care Provider Lucy Christopher DO Unavailable Reason for Visit * Reason Comments Med Refill Encounter Details Date Type Department Care Team (Late st Contact Info) Description 07/08/2024 Refill [facility] [address] Clinic [place] [id number] Brigitte Mahoney, CLAU [address] [place] [address] Social History Tobacco Use Types [...] How often do you attend chur or islam services? More than 4 times [...] [address] [place] [address] 06/27/2025 10:00 AM EST Office Visit [facility]EP [facility] [address] [place] [place] [address] Demario Silva DO [address] [place], [place] [id number] 08/16/2025 10:00 AM EST Office Visit [facility]OLOG[facility] [address] [place] [address] Brigitte Mahoney, CLAU [address] [place] [address] 09/18/2025 1:30 PM EDT Office Visit [facility] RHEUMATOLOGY [facility] [address] Clinic [place] [address] Suman Treviño MD [address] [place] [address] 12/13/2025 1:15 PM EDT Office Visit [facility] OBGYN [facility] [address] Clinic [place] [address] Janice Woodward NP [address] [place] [id number] documented as of this encounter Visit Diagnoses Not on filedocumented in this encounter Additional Health Concerns Assessment Noted Time PHQ-9 Depression Total Score: 0 07/24/19 23 3:00 PM EST documented as of this encounter Care Teams Bilingual Branch Manager Relationship Specialty Start Date End Date Trevor Rolon DO [address] [facility] [address] [place] [address] PCP - General Lucy Christopher DO [address] [place] [address] Consulting Physician Oncology 10/17/24 documented as of this encounter
--- OUTSIDE RECORDS SUMMARY | 2025-05-23 23:28 | XMS_ITS | Encounter Summary ---
Author Organization [facility] nter Address [address] [place] [address] Care Team Providers Care Flying Ii Instructor Name Role Phone Trevor Rolon DO Primary Care Provider Lucy Christopher DO Unavailable Encounter Details Date Type Department Care Team (Late st Contact Info) Description 07/11/2024 Orders Only [facility] [address] [place] [address] Brigitte Mahoney, CLAU [address] [place] [address] Social History Tobacco Use Types [...] PRACTICE [address] [place] [address] 06/27/2025 10:00 AM EST Office Visit [facility] SLEEP [facility] [address] [place] [address] Demario Silva DO [address] [place] [address] 08/16/2025 10:00 AM EST Office Visit [facility] [address] [place] [address] Brigitte Mahoney NP [address] [place] [address] 09/18/2025 1:30 PM EDT Office Visit [facility] [address] [place] [address] Suman Treviño MD [address] [place] [address] 12/13/2025 1:15 PM EDT Office Visit [facility] [address] Clinic [place] [address] Janice Woodward, CLAU [address] [place] [address] documented as of this encounter Visit Diagnoses Not on filedocumented in this encounter Additional Health Concerns Assessment Noted Time PHQ-9 Depression Total Score: 0 07/24/19 23 3:00 PM EST documented as of this encounter Care Teams Flying Ii Instructor Relationship Specialty Start Date End Date Trevor Rolon DO [address] [facility] [address] [place] [id number] PCP - General Lucy Christopher DO [address] [place] [id number] Consulting Physician Oncology 10/17/24 documented as of this encounter
--- OUTSIDE RECORDS SUMMARY | 2025-05-23 23:28 | XMS_ITS | Clinical Summary ---
Author Organization [facility] nter Address [address] [place] [address] Care Team Providers Care Monument Setter Helper Name Role Phone Trevor Rolon DO [...] 04/09/2020 Medications ergocalciferol (Vitamin D-2) 1.25 MG (40420 UT) capsule Take 1 capsule (1.25 mg) [...] 1 tablet (20 mEq) in the evening. 3 Active hydrOXYzine HCl (Atarax) 25 MG tablet Take 1 tablet (25 mg) by mouth if needed in the morning, at noon, and at bedtime for itching. Active FeroSul 325 (65 Fe) MG tablet Take 1 tablet (325 mg) by mouth in the morning. 3 Active Lifitegrast (Xiidra) 5 % solutionIndication s:Keratoconjunctiv itis sicca of both eyes not specified as Sjogren's INSTILL 1 DROP IN EACH EYE TWO TIMES A DAY 180 each 4 4 Active Diclofenac Sodium (Voltaren) 1 % gel Apply to affected area BID PRN 100 g 2 4 Active lisinopril 2.5 MG tablet Take 1 tablet (2.5 mg) by mouth in the morning. 4 Active desvenlafaxine (Pristiq) 50 MG 24 hr tablet Take 1 tablet (50 mg) by mouth at bedtime. Do not crush, chew, or split. Active Continuous Glucose Sensor (Dexcom G7 Sensor) miscIndications:Ty pe 2 diabetes mellitus with hyperglycemia, with long-term current use of insulin 1 each q10 days. Use every 10 days 3 each 11 5 026 Active empagliflozin (Jardiance) 25 MG Take 1 tablet (25 mg) by mouth in the morning. 30 tablet 11 5 Active Semaglutide, 1 MG/DOSE, (Ozempic, 1 MG/DOSE,) 4 MG/3ML solution pen-injector Inject 1 mg under the skin 1 (one) time per week. Take 1 mg each week 3 mL 11 5 Active Insulin Pen Needle (Pen [place]) 32G X 4 MM miscIndications:Ty pe 2 diabetes mellitus with hyperglycemia, with long-term current use of insulin Use 4 per day 100 each 3 5 Active glucose blood (OneTouch Verio) test stripIndications:E 11.65 Use 3 per day. Code E11.65 100 each 11 5 Active ondansetron ODT (Zofran-ODT) 8 MG disintegrating tablet Take 4 mg by mouth every 8 (eight) hours if needed. 5 Active promethazine (Phenergan) 25 MG tablet if needed. Active Zinc 50 MG tablet Take 1 tablet (50 mg) by mouth in the morning. 30 tablet 2 5 Active Copper Gluconate 2 MG tablet Take 2 mg by mouth in the morning. 30 tablet 2 5 Active metoprolol succinate XL (Toprol-XL) 50 MG 24 hr tablet Take 1 tablet (50 mg) by mouth in the morning. Do not crush or chew. Active pregabalin (Lyrica) 25 MG capsuleIndications :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,Restless leg syndrome Take 1 capsule (25 mg) by mouth in the morning and at bedtime. 60 capsule 2 5 Active Rimegepant Sulfate (Nurtec) 75 MG tablet dispersibleIndicat ions:Migraine Take 1 tab PO at the onset of a migraine. Do not exceed more than 1 tab in 24 hours. 8 tablet 5 5 Active insulin aspart (NovoLOG FLEXPEN) 100 UNIT/ML penIndications:Typ e 2 diabetes mellitus with hyperglycemia, with long-term current use of insulin Take 5 units at breakfast, lunch, and supper if premeal BS >150. Max daily dose 50 units 15 mL 3 5 Active Lantus SoloStar 100 UNIT/ML penIndications:Typ e 2 diabetes mellitus with hyperglycemia, with long-term current use of insulin Inject 15 Units under the skin in the morning. Titrate to target glucose. Max daily dose 50 units. 15 mL 3 5 Active busPIRone (Buspar) 10 MG tablet Take 1 tablet (10 mg) by mouth in the morning and at bedtime. Active prednisoLONE acetate (Pred-Forte) 1 % ophthalmic suspension Administer 2 drops into the right eye. Active moxifloxacin (Vigamox) 0.5 % ophthalmic solution Administer 1 drop into the right eye in the morning, at noon, and at bedtime. 5 Active oxyCODONE (Roxicodone) 5 MG immediate release tablet Take 1 tablet (5 mg) by mouth every 6 (six) hours if needed. 5 Active cyclobenzaprine (Flexeril) 10 MG tablet Take 1 tablet (10 mg) by mouth if needed in the morning and at bedtime. Active pantoprazole (ProtoNix) 40 MG EC tabletIndications: Gastroesophageal reflux disease, unspecified whether esophagitis present Take 1 tablet (40 mg) by mouth in the morning. Do not crush, chew, or split. 30 tablet 2 5 025 Active rifAXIMin (Xifaxan) 550 MG tabletIndications: Encephalopathy, hepatic Take 1 tablet (550 mg) by mouth in the morning and at bedtime. 60 tablet 2 5 Active spironolactone (Aldactone) 100 MG tabletIndications: Cirrhosis of liver without ascites, unspecified hepatic cirrhosis type Take 2 tablets (200 mg) by mouth in the morning. 60 tablet 2 5 025 Active lactulose (Chronulac) 10 GM/15ML solutionIndication s:Hepatic encephalopathy Take 15 mL (10 g) by mouth in the morning and at bedtime. 1200 mL 3 5 026 Active busPIRone (Buspar) 7.5 MG tablet Take 1 tablet (7.5 mg) by mouth in the morning and at bedtime. Active valACYclovir (Valtrex) 500 MG tabletIndications: Acute vaginitis Take 1 tablet (500 mg) by mouth in the morning. 30 tablet 5 5 026 Active Active Problems Problem Noted Date Diagnosed [...] 6 months Dexcom showing: Dexcom Clarity trudy asya Date of : 1970 Generated at: November 19, 2023 10:11 AM EDT Reporting period: Sat Nov 06, 2023 - WedNovember 19, 2023 Glucose Details Average glucose: 133 mg/dL Standard deviation: 34 mg/dL GMI: 6.5% Time in Range Very High: <1% High: 9% In Range: 90% Low: <1% Very Low: 0% Target Range 70-180 mg/dL CGM Details Sensor usage: 93% Days with CGM data: Dexcom Clarity trudygarth sky Date of : [...] asya Date of : 1970 Generated at: Jun [...] ozempic .25mg each week. Sample given Lot# [id number] Exp Date 04/2024 # given 1 Sample [...] 3 months dexcom showing: Dexcom Clarity trudy asya Date of [...] disturbances have subsided since establishing care with [facility]. Patient does state she is told [...] and severity improved since establishing care with [facility]. Good compliance with Xifaxin. Patient has [...] Patient is back with regular visits with [facility] and is doing better since hospitalization [...] experienced similar symptoms and her GI in [place] started her on Xifaxan, which reportedly resolved the symptoms, despite a recurrence in October 2021. Her symptoms today have since significantly resolved, per patient. She states she has had no lapses in taking her medication during these periods, although today she is out of the medication and her GI in [place] has discharged her from the practice due to no-show visits. Dr. Rolon in [place] was called to see if he will Rx the medication. Referral to [facility] was made. Patient also has [...] Encounters Date Type Department Care Team Description 05/16/2025 Abstract [facility] [address] [place] [address] Janice Woodward NP 05/10/2025 Telephone [facility] [address], [address] [place] [address] Janice Woodward NP transplant paper 04/16/2025 Abstract [facility]STROENTEROLOGY [facility] [address], [address] [place] [address] El Agarwal NP 04/06/2025 Abstract [facility] [address], [address] [place] [address] El Agarwal NP 03/28/2025 8:00 AM EDT Office Visit [facility] [address], [place] [address] Marcelina Hyde NP LEROY (obstructive sleep apnea) (Primary Dx); Snoring; Excessive daytime sleepiness; Witnessed apneic spells; Gasping for breath; Non-restorative sleep; Persistent disorder of initiating or maintaining sleep; Restless leg syndrome 03/28/2025 Results Follow-Up [facility] OBSTETRICS[facility]GYNECOLOGY UNIT [address], [address]th [place] [address] Janice Woodward NP Vaginitis Panel, C. trachomatis / N. gonorrhoeae, DNA probe, HIV Ag/Ab with Reflex, Additional followed-up results: 2 03/27/2025 11:00 AM EDT Office Visit [facility]OPEDIC [facility]IATRY [facility] [address], [address] [place] [address] Alexandr Zarate, DPM Diabetic polyneuropathy associated with type 2 diabetes mellitus; Achilles tendinitis of left lower extremity; Bilateral calcaneal spurs; Pain in both feet 03/27/2025 10:30 AM EDT Office Visit [facility] [address], [address] [place] [address] Janice Woodward NP Acute vaginitis (Primary Dx) 03/27/2025 Travel 03/26/2025 Telephone [facility] [address], [address] [place] [address] Janice Woodward NP vaginal swab 03/21/2025 Telephone [facility]STRO[facility]OLOGY [facility] [address], [address] [place] [address] El Agarwal NP 03/20/2025 Results Follow-Up [facility] [address], [address] [place] [phone] El Agarwal NP CBC, Basic metabolic panel, Hepatic function panel, Additional followed-up results: 3 03/20/2025 Orders Only [facility] [address], [address] [place] [address] El Agarwal NP Hepatic cirrhosis, unspecified hepatic cirrhosis type, unspecified whether ascites present (Primary Dx) 03/19/2025 1:15 PM EDT Office Visit [facility] [address], [address] [place] [address] El Agarwal NP Cirrhosis of liver without ascites, unspecified hepatic cirrhosis type (Primary Dx); Hepatic encephalopathy; Gastroesophageal reflux disease, unspecified whether esophagitis present; Encephalopathy, hepatic; GAVE (gastric antral vascular ectasia) 03/19/2025 Travel 02/27/2025 4:50 PM EDT - 02/27/2025 11:59 PM EDT Hospital Encounter [facility] - GENERAL DIAGNOSTIC BLDG D [address], [place] [address] Cirrhosis Discharge Disposition: Home or Self Care 02/27/2025 1:00 PM EDT Office Visit [facility] [address], [address] [place] [address] Alexandr Zarate DPM Diabetic polyneuropathy associated with type 2 diabetes mellitus (Primary Dx) 02/27/2025 Orders Only [facility]OCRINOLOGY [facility] [address], [address] [place] [phone] Lesly Agarwal Type 2 diabetes mellitus with hyperglycemia, with long-term current use of insulin 02/27/2025 Orders Only [facility] [address], [address] [place] [phone] Marion Chaney, CORWIN Diabetic polyneuropathy associated with type 2 diabetes mellitus 02/26/2025 12:50 PM EDT - 02/26/2025 11:59 PM EDT Hospital Encounter [facility] - GENERAL DIAGNOSTIC BLDG D [address], [place] [address] Type 2 diabetes mellitus with hyperglycemia, with long-term current use of insulin; Other fatigue; Hyperlipidemia Discharge Disposition: Home or Self Care 02/26/2025 Travel 02/26/2025 Orders Only [facility] [address], [address] [place] [phone] Lesly Agarwal Type 2 diabetes mellitus with hyperglycemia, with long-term current use of insulin 02/23/2025 Telephone [facility] [address], [address] [place] [phone] Brigitte Mahoney NP 02/22/2025 3:20 AM EDT - 02/22/2025 6:50 AM EDT Emergency [facility] [address], [address] [place] [address] Raheel Christopher DO Leg cramping (Primary Dx) Discharge Disposition: Left Against Medical Advice 02/22/2025 Travel 02/20/2025 11:40 AM EDT - 02/20/2025 11:59 PM EDT Hospital Encounter [facility] [address], [address] Floor [place] [address] Postlaminectomy syndrome, not elsewhere classified Discharge Disposition: Home or Self Care 02/20/2025 Travel from Last 3 Months Family History [...] any clubs o r organizations such as jehovah's witness groups, unions, fraternal or athletic groups, or [...] Visit [facility] [address] [place] [address] 06/27/2025 10:00 AM EST Office Visit [facility] SLEEP [facility] [address] [place] [address] Demario Silva DO [address] [place] [address] 08/16/2025 10:00 AM EST Office Visit [facility]CRINOLOGY [facility] [address], [address] [place] [address] Brigitte Mahoney NP [address] [place] [address] [place] [address] 09/18/2025 1:30 PM EDT Office Visit [facility] RHEUMATOLOGY [facility] [address], 8[address] Floor Clinic [place] [address] Suman Treviño MD [address] [place] [phone] 12/13/2025 1:15 PM EDT Office Visit [facility] [address], 7[address] Floor Clinic [place] [address] Janice Woodward NP [address] [place] [address] Health Maintenance Due Date Last Done [...] 04/02/2023, Additional history exists Diabetes: Hemoglobin A1C 05/29/202502/26/ 025, 06/01/2024, 03/16/2023, Additional history exists Colonoscopy 07/31/2032 07/31/2022, 1202/2020, 06/18/2020 Colorectal Cancer Screening 07/31/2032 RSV under 20 month Aged Out No longer eligible based on patient's age to complete this topic Procedures Procedure Name Priority Date/Time Associated Diagnosis Comments C. TRACHOMATIS / N. GONORRHOEAE, DNA PROBE Routine 03/27/2025 12:42 PM EDT Acute vaginitis VAGINITIS PANEL (PERFORMED AT [facility]) Routine 03/27/2025 12:42 PM EDT Acute vaginitis [...] - ENTER/EDIT Routine 02/20/2025 1:11 PM EDT BI MAMMOGRAM SCREENING BILATERAL Routine 02/15/2024 9:38 [...] (BV) NEGATIVE NEGATIVE 03/27/2025 9:42 PM EDT [facility] Edelmira glab-krus NOT DETECTED NOT DETECTED 03/27/2025 9:42 PM EDT [facility] Edelmira group NOT DETECTED NOT DETECTED 03/27/2025 9:42 PM EDT [facility] Trichomoniasis (TV) NOT DETECTED NOT DETECTED 03/27/2025 9:42 PM EDT [facility] Vaginal Swab Vaginal structure / Unknown Non-blood Collection / Unknown 03/27/2025 12:42 PM EDT 03/27/2025 8:03 PM EDT [facility] - 03/27/2025 9:42 PM EDT [...] AL ORDERABLES Final Result Performing Organization Address City/[facility]/ZIP Co de Phone Number [facility] [address] [place] [address], * C. trachomatis / N. gonorrhoeae, DNA probe (03/27/2025 12:42 PM EDT) [facility] Chlamydia, DNA Probe NOT DETECTED NOT DETECTED 03/27/2025 9:41 PM EDT [facility] N gonorrhoeae, DNA Probe NOT DETECTED NOT DETECTED 03/27/2025 9:41 PM EDT [facility] Comment: A negative test result [...] AL ORDERABLES Final Result Performing Organization Address City/[facility]/ZIP Co de Phone Number [facility] [address] [place] [address], [place] [phone] * (ABNORMAL) Herpes simplex virus culture (03/27/2025 12:42 PM EDT) HSV Culture Positive(A ) 03/31/2025 2:07 PM EDT [facility] ([place]) Swab Cervical swab / Unknown Non-blood Collection / Unknown 03/27/2025 12:42 PM EDT 03/27/2025 8:03 PM EDT Narrative [facility] ([place]) - 03/31/2025 2:07 PM EDT Performed at: [address] [id number] Traveling Buyer: Raphael Edwards PhD, Phone: [phone] Janice Woodward NP LAB MICROBIOLOGY - [facility] AL ORDERABLES Final Result [facility]) [address] [place] [address], * (ABNORMAL) Herpes Simplex Virus (HSV) Types 1 & 2 Specific Antibodies (03/27/2025 11:52 AM EDT) Pathologist [facility] HSV 1 IgG, Type Spec Reactive( A) Non Reactive 03/28/2025 8:07 AM EDT [facility] Comment: Please note reference interval change HSV-1 IgG testing performed using the [employer] HSV-1 IgG assay. HSV 2 IgG Type Spec Reactive( A) Non Reactive 03/28/2025 8:07 AM EDT [facility] Comment: Please note reference interval change [...] EDT 03/27/2025 12:17 PM EDT Narrative [facility] - 03/28/2025 8:07 AM EDT Performed at: Lab[address] [id number] Traveling Buyer: Raphael Edwards PhD, Phone: [phone] Janice Woodward NP LAB BLOOD ORDERABLES Fin al Result Performing Organization Address [facility]/ZIP Co de Phone Number [employer] [place]) [address] [place] [address], * RPR W/Reflex (Reference Lab) (03/27/2025 11:52 AM EDT) RPR Non Reactive Non Reactive 03/28/2025 8:07 AM EDT [facility] Blood Venous blood specimen / Unknown Venipuncture / Unknown 03/27/2025 11:52 AM EDT 03/27/2025 12:17 PM EDT [facility]) - 03/28/2025 8:07 AM EDT Performed at: [address] [id number] Traveling Buyer: Raphael Edwards PhD, Phone: [phone] Janice Woodward NP LAB BLOOD ORDERABLES Fin al Result Performing Organization Address City/[facility] Co de Phone Number [employer] [facility]) [address] [place] [address], * HIV Ag/Ab with Reflex (03/27/2025 11:52 AM EDT) HIV Ag/Ab (4th Gen) Nonreactive Nonreactive 03/27/2025 1:02 PM EDT [facility] Blood Venous blood specimen / Unknown Venipuncture / Unknown 03/27/2025 11:52 AM EDT 03/27/2025 12:17 PM EDT [facility] - 03/27/2025 1:02 PM EDT Screening test only. Janice Woodward NP LAB BLOOD ORDERABLES Fin al Result [facility] [address] [place] [address], [place] [phone] * Hepatitis panel, acute (03/27/2025 11:52 AM EDT) [facility] Hepatitis B Surface Ag Nonreactive Nonreactive 03/27/2025 1:26 PM EDT [facility] Hep A IgM Nonreactive Nonreactive 03/27/2025 1:26 PM EDT [facility] Hep B Core IgM Nonreactive Nonreactive 03/27/2025 1:26 PM EDT [facility] Hepatitis C Ab Nonreactive Nonreactive 03/27/2025 1:26 PM EDT [facility] Blood Venous blood specimen / Unknown Venipuncture / Unknown 03/27/2025 11:52 AM EDT 03/27/2025 12:17 PM EDT Janice Woodward NP LAB BLOOD ORDERABLES Fin al Result [facility] [address] [place] [address], [place] [phone] * (ABNORMAL) CBC (03/27/2025 11:52 AM EDT) Only the most recent of2 resultswithin the time period is included. [facility] Auto WBC 8.8 3.8 - 11.0 10*3/uL 03/27/2025 12:21 PM EDT [facility] RBC 3.97 3.73 - 5.13 10*6/uL 03/27/2025 12:21 PM EDT [facility] Hemoglobin 13.1 11.2 - 15.3 g/dL 03/27/2025 12:21 PM EDT [facility] Hematocrit 39.1 32.6 - 44.6 % 03/27/2025 12:21 PM EDT [facility] MCV 98.6(H) 78.8 - 96.0 fL 03/27/2025 12:21 PM EDT [facility] MCH 33.0 26.2 - 33.0 pg 03/27[facility]2025 12:[facility] MCHC 33.5 32.7 - 35.1 g/dL 03/27/2025 12:21 PM EDT [facility] RDW 14.5 12.1 - 16.1 % 03/27/2025 12:[facility] Platelets 88(L) 138 - 402 10*3/uL 03/27/2025 12:21 PM EDT [facility] MPV 7.9 7.0 - 10.6 fL 03/27/2025 12:21 PM [facility] Blood Venous blood specimen / Unknown Venipuncture / Unknown 03/27/2025 11:52 AM EDT 03/27/2025 12:16 PM EDT us El Agarwal FILM AND VIDEO GRAPHICS DESIGNER LAB BLOOD ORDERABLES Final Re sult [facility] [address] [place] [address], * (ABNORMAL) Comprehensive metabolic panel (03/27/2025 11:52 AM EDT) Only the most recent of2 resultswithin the time period is included. Sodium 137 134 - 143 mmol/L 03/27/2025 12:43 PM [facility] Potassium 4.2 3.2 - 4.6 mmol/L 03/27/2025 12:43 PM [facility] Chloride 103 99 - 108 mmol/L 03/27/2025 12:43 [facility] CO2 28 19 - 29 mmol/L 03/27/2025 12:43 PM [facility] Anion Gap 6 5 - 15 mmol/L 03/27/2025 12:43 [facility] BUN 19 7 - 20 mg/dL 03/27/2025 12:43 PM [facility] Creatinine 1.02 <=1.20 mg/dL 03/27/2025 12:43 PM [facility] BUN/Creatinine Ratio 18.63 10.00 - 20.00 ratio 03/27/2025 12:43 PM [facility] Glucose 117(H) 58 - 104 mg/dL 03/27/2025 12:43 PM [facility] Calcium 9.3 7.9 - 11.1 mg/dL 03/27/2025 12:43 PM [facility] AST 55(H) 10 - 28 U/L 03/27/2025 12:43 PM [facility] ALT (SGPT) 36 <=40 U/L 03/27/2025 12:43 PM [facility] Alkaline Phosphatase 213(H) 29 - 108 U/L 03/27/2025 12:43 PM [facility] Total Protein 6.2 5.9 - 7.9 g/dL 03/27/2025 12:43 PM [facility] Albumin 3.1(L) 3.5 - 5.1 g/dL 03/27/2025 12:43 PM [facility] Globulin, Total 3.1 2.4 - 4.8 g/dL 03/27/2025 12:43 PM [facility] A/G Ratio 1.0 0.6 - 1.6 03/27/2025 12:43 PM [facility] Total Bilirubin 1.9(H) 0.3 - 1.0 mg/dL 03/27/2025 12:43 PM [facility] eGFR (CKD-EPI) 62.1 >60.0 - 200.0 mL/min/1.7 3m*2 03/27/2025 12:43 PM [facility] Blood Venous blood specimen / Unknown Venipuncture / Unknown 03/27/2025 11:52 AM EDT 03/27/2025 12:17 PM EDT us El Agarwal NP LAB BLOOD ORDERABLES Final Re sult [facility] [address] [place] [address], [place] [phone] * AFP tumor marker (03/19/2025 2:49 PM EDT) [facility] AFP Tumor Marker 4.7 0.0 - 9.2 ng/mL 03/20/2025 4:06 AM EDT [facility]) Comment: [employer] Electrochemiluminescence Immunoassay (ECLIA) Values obtained with different assay methods or kits cannot be used interchangeably. Results cannot be interpreted as absolute evidence of the presence or absence of malignant disease. This test is not interpretable in females. Blood Venous blood specimen / Unknown Venipuncture / Unknown 03/19/2025 2:49 PM EDT 03/19/2025 3:06 PM EDT Narrative [facility]) - 03/20/2025 4:06 AM EDT Performed at: [address] [place] [id number] Traveling Buyer: Raphael Edwards PhD, Phone: [phone] us El Agarwal NP LAB BLOOD ORDERABLES Final Re sult [facility]) [address] [place] [address], [place] [phone] * (ABNORMAL) Protime-INR (03/19/2025 2:49 PM EDT) Only the most recent of2 resultswithin the time period is included. [facility] Protime 14.3(H) 10.2 - 12.9 seconds 03/19/2025 3:27 PM EDT [facility] INR 1.27(H) 0.90 - 1.10 03/19/2025 3:27 PM EDT [facility] Comment: The INR should only be used in stable anticoagulated patients. Recommended therapeutic ranges: Condition INR Prevention or treatment of DVT 2.0-3.0 Acute ME Prevention of Stroke 2.0-3.0 Prevention of recurrent ME 2.5-3.5 Atrial fibrillation Prevention of systemic embolism 2.0-3.0 Cardiac valve replacement (mechanical valves) 2.5-3.5 Blood Venous blood specimen / Unknown Venipuncture / Unknown 03/19/2025 2:49 PM EDT 03/19/2025 3:07 PM EDT El Agarwal FILM AND VIDEO GRAPHICS DESIGNER LAB BLOOD ORDERABLES Final Re sult Performing Organization Address [facility]/ZIP Co de Phone Number [facility] [address] [place] [address], * (ABNORMAL) Ammonia (03/19/2025 2:49 PM EDT) Ammonia 65(H) 11 - 32 umol/L 03/19/2025 3:37 PM EDT [facility] Blood Venous blood specimen / Unknown Venipuncture / Unknown 03/19/2025 2:49 PM EDT 03/19/2025 3:06 PM EDT [place] Agarwal FILM AND VIDEO GRAPHICS DESIGNER LAB BLOOD ORDERABLES Final Re sult Performing Organization Address [facility] de Phone Number [facility] [address] [place] [address], * (ABNORMAL) Hepatic function panel (03/19/2025 2:49 PM EDT) Total Bilirubin 2.0(H) 0.3 - 1.0 mg/dL 03/19/2025 3:35 PM EDT [facility] Bilirubin, Direct 0.6(H) 0.0 - 0.2 mg/dL 03/19/2025 3:35 PM EDT [facility] Alkaline Phosphatase 205(H) 29 - 108 U/L 03/19/2025 3:35 PM EDT [facility] AST 61(H) 10 - 28 U/L 03/19/2025 3:35 PM EDT [facility] ALT (SGPT) 40 <=40 U/L 03/19/2025 3:35 PM EDT [facility] Albumin 2.9(L) 3.5 - 5.1 g/dL 03/19/2025 3:35 PM EDT [facility] Total Protein 6.0 5.9 - 7.9 g/dL 03/19/2025 3:35 PM [facility] Blood Venous blood specimen / Unknown Venipuncture / Unknown 03/19/2025 2:49 PM EDT 03/19/2025 3:06 PM EDT [facility] - 03/19/2025 3:35 PM EDT Results for ALT may be adversely affected when samples are collected on patients taking Sulfasalazine and/or Sulfapyridine. us El Agarwal NP LAB BLOOD ORDERABLES Final Re sult [facility] [address] [place] [address], [place] [phone] * (ABNORMAL) Basic metabolic panel (03/19/2025 2:49 PM EDT) Only the most recent of2 resultswithin the time period is included. Glucose 116(H) 58 - 104 mg/dL 03/19/2025 3:35 PM [facility] Sodium 133(L) 134 - 143 mmol/L 03/19/2025 3:35 PM [facility] Potassium 4.2 3.2 - 4.6 mmol/L 03/19/2025 3:35 PM [facility] Chloride 101 99 - 108 mmol/L 03/19/2025 3:35 PM [facility] CO2 30(H) 19 - 29 mmol/L 03/19/2025 3:35 PM [facility] Anion Gap 2(L) 5 - 15 mmol/L 03/19/2025 3:35 PM [facility] BUN 19 7 - 20 mg/dL 03/19/2025 3:35 PM [facility] Creatinine 0.91 <=1.20 mg/dL 03/19[facility]2025 [facility] BUN/Creatinine Ratio 20.88(H) 10.00 - 20.00 ratio 03/19/2025 3:35 PM EDT [facility] Calcium 8.6 7.9 - 11.1 mg/dL 03/19/2025 3:35 [facility] eGFR (CKD-EPI) 71.3 >60.0 - 200.0 mL/min/1.7 3m*2 03/19/2025 3:35 PM EDT [facility] Blood Venous blood specimen / Unknown Venipuncture / Unknown 03/19/2025 2:49 PM EDT 03/19/2025 3:06 PM EDT us El Agarwal FILM AND VIDEO GRAPHICS DESIGNER LAB BLOOD ORDERABLES Final Re sult [facility] [address] [place] [address], [place] [phone] * (ABNORMAL) CBC auto differential (02/26/2025 1:00 PM EDT) Only the most recent of2 resultswithin the time period is included. Auto WBC 4.9 3.8 - 11.0 10*3/uL 02/26/2025 2:40 PM [facility] RBC 3.89 3.73 - 5.13 10*6/uL 02/26/2025 2:40 PM [facility] Hemoglobin 13.0 11.2 - 15.3 g/dL 02/26/2025 2:40 PM [facility] Hematocrit 38.2 32.6 - 44.6 % 02/26/2025 2:40 PM [facility] MCV 98.3(H) 78.8 - 96.0 fL 02/26/2025 2:40 PM [facility] MCH 33.4(H) 26.2 - 33.0 pg 02/26/2025 2:40 PM [facility] MCHC 33.9 32.7 - 35.1 g/dL 02/26/2025 2:40 [facility] RDW 14.6 12.1 - 16.1 % 02/26/2025 2:40 [facility] MPV 8.3 7.0 - 10.6 fL 02/26/2025 2:40 PM [facility] Neutrophils % 67 47 - 79 % 02/26/2025 2:40 PM [facility] Lymphocytes % 19 13 - 41 % 02/26/2025 2:40 PM EDT [facility] Monocytes % 9 3 - 11 % 02/26/2025 2:40 [facility] Eosinophils % 4 0 - 6 % 02/26/2025 2:40 [facility] Basophils % 0 0 - 2 % 02/26/2025 2:40 PM [facility] Neutrophils Absolute 3.30 1.90 - 7.50 10*3/uL 02/26/2025 2:40 [facility] Lymphocytes Absolute 1.00 0.80 - 3.20 10*3/uL 02/26/2025 2:40 [facility] Monocytes Absolute 0.40 0.10 - 0.90 10*3/uL 02/26/2025 2:40 PM [facility] Eosinophils Absolute 0.20 0.00 - 0.40 10*3/uL 02/26/2025 2:40 PM [facility] Basophils Absolute 0.00 0.00 - 0.20 10*3/uL 02/26/2025 2:40 PM [facility] Platelets 74(L) 138 - 402 10*3/uL 02/26/2025 2:40 PM [facility] Blood Venous blood specimen / Unknown Venipuncture / Unknown 02/26/2025 1:00 PM EDT 02/26/2025 1:00 PM EDT us Trevor Rolon DO LAB BLOOD ORDERABLES Fi nal Result [facility] [address] [place] [address], * Vitamin D 25 hydroxy (02/26/2025 1:00 PM EDT) [facility] Vitamin D, Total 67 30 - 100 ng/mL 02/26/2025 3:19 PM EDT [facility] Blood Venous blood specimen / Unknown Venipuncture / Unknown 02/26/2025 1:00 PM EDT 02/26/2025 1:00 PM EDT Trevor Rolon DO LAB BLOOD ORDERABLES Fi nal Result Performing Organization Address City/[facility]/ZIP Co de Phone Number [facility] [address] [place] [address], * Hemoglobin A1c (02/26/2025 1:00 PM EDT) [facility] Hemoglobin A1C 5.1 3.0 - 6.0 % 02/26/2025 3:25 PM EDT [facility] Comment: Additional Reference Ranges: 6.0 - 9.0% Controlled Diabetic >9.0 Poorly Controlled Diabetic *Hemoglobin A1c is an FDA approved test for monitoring custodial glucose control in individuals with diabetes. It is not an approved screening test for diagnosing type 1 and type 2 diabetes. Results of Hemoglobin A1c are not reliable in patients with chronic blood loss, consequent variable erythrocyte lifespan, hemolytic diseases, , and significant blood loss. MEAN BLOOD GLUCOSE 99.67 mg/dl 02/26/2025 3:25 PM EDT [facility] Blood Venous blood specimen / Unknown Venipuncture / Unknown 02/26/2025 1:00 PM EDT 02/26/2025 1:00 PM EDT Trevor Rolon DO LAB BLOOD ORDERABLES Fi nal Result Performing Organization Address City/[facility]/ZIP Co de Phone Number [facility] [address] [place] [address], * Folate (02/26/2025 1:00 PM EDT) Folate 15.3 5.9 - 24.8 ng/mL 02/26/2025 3:23 PM EDT [facility] Blood Venous blood specimen / Unknown Venipuncture / Unknown 02/26/2025 1:00 PM EDT 02/26/2025 1:00 PM EDT Trevor Kd Rolon DO LAB BLOOD ORDERABLES Fi nal Result Performing Organization Address City/[facility]/ZIP Co de Phone Number [facility] [address] [place] [address], [place] [phone] * (ABNORMAL) Vitamin B12 (02/26/2025 1:00 PM EDT) Pathologist [facility] Vitamin B-12 987.1(H) 180.0 - 914.0 pg/mL 02/26/2025 3:23 PM EDT [facility] Blood Venous blood specimen / Unknown Venipuncture / Unknown 02/26/2025 1:00 PM EDT 02/26/2025 1:00 PM EDT Trevor Rolon DO LAB BLOOD ORDERABLES Fi nal Result Performing Organization Address City/[facility]/ZIP Co de Phone Number [facility] [address] [place] [address], [place] [phone] * (ABNORMAL) Lipid panel (02/26/2025 1:00 PM EDT) Pathologist [facility] Triglycerides 84 <=150 mg/dL 02/26/2025 3:05 PM EDT [facility] Cholesterol 185 102 - 200 mg/dL 02/26/2025 3:05 PM EDT [facility] HDL 52 30 - 71 mg/dL 02/26/2025 3:05 PM EDT [facility] Cholesterol/HDL Ratio 3.6 02/26/2025 3:05 PM EDT [facility] LDL-C (FRIEDEWALD) 116(H) <=100 mg/dL 02/26/2025 3:05 PM EDT [facility] Blood Venous blood specimen / Unknown Venipuncture / Unknown 02/26/2025 1:00 PM EDT 02/26/2025 1:00 PM EDT Trevor Rolon DO LAB BLOOD ORDERABLES Fi nal Result Performing Organization Address [facility] Co de Phone Number [facility] [address] [place] [address], * Magnesium (02/22/2025 3:57 AM EDT) Magnesium 1.9 1.8 - 2.4 mg/dL 02/22/2025 4:34 AM EDT [facility] Blood Venous blood specimen / Unknown Venipuncture / Unknown 02/22/2025 3:57 AM EDT 02/22/2025 4:08 AM EDT Raheel Campney Ashwin DO LAB BLOOD ORDERABLES Fi nal Result Performing Organization Address [facility] Co de Phone Number [facility] [address] [place] [address], * MR lumbar spine w and wo [...] Felix MD 02/20/2025 02:55 PM EDT RPWorkstation: [id number] us Bharti Marks NP [facility] MRI PROCEDURES Final Result * POCT Creatinine - Enter/Edit (02/20/2025 1:11 PM EDT) POC Creatinine 0.67 0.6 - 1.3 mg/dL GFR >60 >=60 ml/min Blood 02/20/2025 1:11 PM EDT Debora Francisco RN - 02/20/2025 1:11 PM EDT For additional details regarding the eGFR calculation, please consult [facility] policy C6910.5051. Bharti Marks NP POINT OF CARE TEST ENTER /EDIT ORDERABLES Final Result * BI Screening mammogram bilateral [...] by the physician, the nurse and the dehydrator operator. The procedure was verified in the [...] the patient. Procedure Code(s): --- Professional --- 94086, Colonoscopy, flexible; with biopsy, single or multiple --- Technical --- 79200, Colonoscopy, flexible; with biopsy, single or multiple [...] or abscess without bleeding CPT copyright 2018 [employer]. All rights reserved. The codes documented in this report are preliminary and upon laboratory clerk review may be revised to meet current [...] procedure by the physician,the nurse and the dehydrator operator. The procedure wasverified in the pre-procedure [...] the patient. Procedure Code(s): --- Professional --- 59074, Colonoscopy, flexible; with biopsy, single or multiple --- Technical --- 54045, Colonoscopy, flexible; with biopsy, single or multiple [...] or abscess without bleeding CPT copyright 2018 [employer]. All rights reserved. The codes documented in this report are preliminary and upon laboratory clerk reviewmay be revised to meet current compliance [...] Recently Relevant to Health Maintenance Insurance [employer] [facility] Advance Directives * Full Code (Latest Code Status on File) Date Activated Date Inactivated Comments 07/23/2022 5:34 PM 07/25/2022 3:59 PM Care Teams Monument Setter Helper Relationship Specialty Start Date End Date Trevor Rolon DO [address] [facility] [address] [place] [id number] PCP - General Lucy Christopher DO [address] [place] [address] [place] [address] Consulting Physician Oncology 10/17/24
--- OUTSIDE RECORDS SUMMARY | 2025-05-23 23:28 | XMS_ITS | Encounter Summary ---
Author Organization [facility] nter Address [address] [place] [address] Care Team Providers Care Reeling Operator Name Role Phone Trevor Rolon DO Primary Care Provider Lucy Christopher DO Unavailable Reason for Visit * Reason Comments Med Refill Encounter Details Date Type Department Care Team (Late st Contact Info) Description 10/06/2023 Refill [facility] [address], 8th Floor Clinic [place] [phone] Lupe Villalta, DRAWBRIDGE TENDER [address] [facility] [place] [address] Social History Tobacco Use Types [...] Description 06/18/2025 10:30 AM EST Office Visit [facility] [address] 2nd [place] [address] 06/27/2025 10:00 AM EST Office Visit [facility] [address] [place] [phone] Demario Silva DO [address] [place] [address] 08/16/2025 10:00 AM EST Office Visit [facility] [address]th [place] [address] Brigitte Mahoney NP [address] [place] [address] 09/18/2025 1:30 PM EDT Office Visit [facility] [address] 8th [place] [address] Suman Treviño MD [address] [facility]. Katie [place] [address] 12/13/2025 1:15 PM EDT Office Visit [facility] [address], 7th [place] [address] Janice Woodward, CLAU [address] [place] [address] documented as of this encounter Visit Diagnoses Not on filedocumented in this encounter Additional Health Concerns Assessment Noted Time PHQ-9 Depression Total Score: 0 07/24/19 23 3:00 PM EST documented as of this encounter Care Teams Reeling Operator Relationship Specialty Start Date End Date Trevor Rolon DO [address] [facility] [address] [place] [address] PCP - General Lucy Christopher DO [address] [facility] Katei [place] [address] Consulting Physician Oncology 10/17/24 documented as of this encounter
--- OUTSIDE RECORDS SUMMARY | 2025-05-23 23:28 | XMS_ITS | Encounter Summary ---
Author Organization [facility] nter Address [address] [place] [address] Care Team Providers Care Accountant Cost Name Role Phone Trevor Rolon DO Primary Care Provider Lucy Christopher DO Unavailable Encounter Details Date Type Department Care Team (Late st Contact Info) Description 02/25/2023 Orders Only [facility] [address], 8th [place] [address] Brigitte Mahoney, CLAU [address] [place] [address] Social History Tobacco Use Types [...] How often do you attend chur or mormon services? More than 4 times [...] [facility] [address] 2nd [place] [address] 06/27/2025 10:00 AM EST Office Visit [facility] [address] [place] [address] Demario Silva DO [address] [place] [address] 08/16/2025 10:00 AM EST Office Visit [facility]CRIN[facility]Y [facility] [address] 8th [place] [address] Brigitte Mahoney NP [address] [place] [address] 09/18/2025 1:30 PM EDT Office Visit [facility] RHEUMATOLOGY [facility]ACTICE [address], 8[address] Floor Clinic [facility] [place] [address] Suman Treviño MD [address] [facility] [place] [address] 12/13/2025 1:15 PM EDT Office Visit [facility] OBGYN [facility]ACT[facility] [address], 7[address] Floor Clinic [facility] [place] [address] Janice Woodward, CLAU [address] [place] [address] documented as of this encounter Visit Diagnoses Not on filedocumented in this encounter Additional Health Concerns Assessment Noted Time PHQ-9 Depression Total Score: 0 07/24/19 23 3:00 PM EST documented as of this encounter Care Teams Accountant Cost Relationship Specialty Start Date End Date Trevor Rolon DO [address] [facility] [address] [place] [address] PCP - General Lucy Christopher DO [address] [facility] [place] [address] Consulting Physician Oncology 10/17/24 documented as of this encounter
--- OUTSIDE RECORDS SUMMARY | 2025-05-23 23:28 | XMS_ITS | Encounter Summary ---
Author Organization [facility] nter Address [address] [place] [address] Care Team Providers Care Open Hearth Furnace Laborer Name Role Phone Trevor Rolon DO Primary Care Provider Lucy Christopher DO Unavailable Encounter Details Date Type Department Care Team (Late st Contact Info) Description 07/20/2022 Orders Only [facility] [address], 2nd [place] [address] Laquita Woods PA [address] [place] [address] Social History Tobacco Use Types [...] week 07/24/2022 How often do you attend [facility] or [facility] services? More than 4 times [...] 2 07/23/2022 5:29 PM E Michelle Benoit KNOT CUTTER Evaluation Needed 2 07/23/2022 5:29 PM Michelle [...] PRACTICE [address], 2nd [place] [address] 06/27/2025 10:00 AM EST Office Visit [facility] SLEEP [facility] [address], [place] [address] Demario Silva DO [address] [place] [phone] 08/16/2025 10:00 AM EST Office Visit [facility] ENDOCRINOLOGY [facility]ACTICE [address], 8th [place] [address] Brigitte Mahoney NP [address] [facility] [place] [address] 09/18/2025 1:30 PM EDT Office Visit [facility] RHEUMATOLOGY PRACTICE [address], 8th [place] [address] Suman Treviño MD [address] [facility]. [place] [address] 12/13/2025 1:15 PM EDT Office Visit [facility] OBGYN [facility]ACT[facility] [address], 7th [place] [address] Janice Woodward NP [address] [place] [phone] documented as of this encounter Visit Diagnoses Not on filedocumented in this encounter Care Teams Open Hearth Furnace Laborer Relationship Specialty Start Date End Date Trevor Rolon DO [address] [facility] [address] [place] [address] PCP - General Lucy Christopher DO [address] [place] [address] [place] [address] Consulting Physician Oncology 10/17/24 documented as of this encounter
--- OUTSIDE RECORDS SUMMARY | 2025-05-23 23:28 | XMS_ITS | Encounter Summary ---
Author Organization [facility] nter Address [address] [place] [address] Care Team Providers Care Consultant Intern Name Role Phone Trevor Rolon DO Primary Care Provider Lucy Christopher DO Unavailable Reason for Visit * Reason Comments Med Refill Encounter Details Date Type Department Care Team (Late st Contact Info) Description 08/08/2024 Refill [facility] [address], 8[address] Floor Clinic [place] [phone] Brigitte Mahoney, CLAU [address] [place] [address] Social History Tobacco Use Types [...] How often do you attend chur or mormonism services? More than 4 times [...] PRACTICE [address], 2nd [place] [address] 06/27/2025 10:00 AM EST Office Visit [facility] [address] [place] [address] Demario Silva DO [address] [place], [place] [id number] 08/16/2025 10:00 AM EST Office Visit [facility] END[facility]CRINOLOG[facility] [address] 8th [place] [address] Brigitte Mahoney, CLAU [address] [place] [address] 09/18/2025 1:30 PM EDT Office Visit [facility]UMAT[facility]Y [facility] [address], 8[address] Floor Clinic [place] [address] Suman Treviño MD [address] [place] [address] 12/13/2025 1:15 PM EDT Office Visit [facility] O[facility] [address], 7[address] Floor Clinic [place] [address] Janice Woodward NP [address] [place] [phone] documented as of this encounter Visit Diagnoses Not on filedocumented in this encounter Additional Health Concerns Assessment Noted Time PHQ-9 Depression Total Score: 0 07/24/19 23 3:00 PM EST documented as of this encounter Care Teams Consultant Intern Relationship Specialty Start Date End Date Trevor Rolon DO [address] [facility] [address] [place] [address] PCP - General Lucy Christopher DO [address] [place] [address] Consulting Physician Oncology 10/17/24 documented as of this encounter
--- OUTSIDE RECORDS SUMMARY | 2025-05-23 23:28 | XMS_ITS | Encounter Summary ---
Author Organization [facility] nter Address [address] [place] [address] Care Team Providers Care Driller Hand Name Role Phone Trevor Rolon DO Primary Care Provider Lucy Christopher DO Unavailable Reason for Visit * Reason Comments Med Refill Encounter Details Date Type Department Care Team (Late st Contact Info) Description 09/29/2023 Refill [facility] [address], 8[address] Floor Clinic [place] [phone] Lupe Villalta, ENVIRONMENTAL SERVICES LEAD [address] [facility] [place] [address] Social History Tobacco Use Types [...] any clubs o r organizations such as jewish groups, unions, fraternal or athletic groups, or [...] GASTROENTEROLOGY PRACTICE [address] 2nd [place] [address] 06/27/2025 10:00 AM EST Office Visit [facility] [address] [place] [phone] Demario Silva DO [address] [place] [address] 08/16/2025 10:00 AM EST Office Visit [facility] [address] [place] [address] Brigitte Mahoney NP [address] [place] [address] 09/18/2025 1:30 PM EDT Office Visit [facility] [address] 8th [place] [address] Suman Treviño MD [address] [facility]. Katie [place] [address] 12/13/2025 1:15 PM EDT Office Visit [facility] [address], [address]th [place] [address] Janice Woodward, CLAU [address] [place] [address] documented as of this encounter Visit Diagnoses Not on filedocumented in this encounter Additional Health Concerns Assessment Noted Time PHQ-9 Depression Total Score: 0 07/24/19 23 3:00 PM EST documented as of this encounter Care Teams Driller Hand Relationship Specialty Start Date End Date Trevor Rolon DO [address] [facility] [address] [place] [address] PCP - General Lucy Christopher DO [address] [facility] [place] [address] Consulting Physician Oncology 10/17/24 documented as of this encounter
--- OUTSIDE RECORDS SUMMARY | 2025-05-23 23:28 | XMS_ITS | Encounter Summary ---
Author Organization [facility] Address [address] [place] [address] Care Team Providers Care Director Volunteer Services Name Role Phone Trevor Rolon DO Primary Care Provider Mc Grant DO Unavailable [phone] El Agarwal PAYABLE MANAGER Unavailable [phone] Encounter Details Date Type Department Care Team (Late st Contact Info) Description 04/16/2015 Orders Only External Location [address] [place] [address] Provider, External Social History Tobacco Use Types Packs/Day Years Used Date Smoking Tobacco: Never Assessed Comments Unknown Sex and Gender Information Value [...] EST Appointment [facility] G Radiology [address] [place] [address] 05/25/2025 2:00 PM EST Appointment P[facility] H Pulmonary Function Testing [address] [place] [address] 05/25/2025 3:30 PM EST Appointment Cardiac Imaging [address] [place] [address] 05/31/2025 4:30 PM EST Appointment [facility] Breast Care Center Comprehensive Breast Care [facility] Am[address] Building [address] [place] [address] 06/12/2025 2:30 PM EST Office Visit [facility] Ortley [address] [facility], [address] [place] [address] Juana Gale, PAYABLE MANAGER [address] [place] [address] 06/20/2025 10:30 AM EST Procedure Visit [facility] [address], 1st [place] [address] Claire Davidson MD [address] [facility] [address] [place] [address] 06/21/2025 2:00 PM EST Office Visit [facility] [address] [facility], [address] [place] [address] Claire Davidson MD [id number] [place] [address] 07/17/2025 8:45 AM EST Clinical Support [facility] Transplant [place] [address] [facility] [address] [place] [address] 07/17/2025 10:30 AM EST Office Visit [facility] Trans[facility] [place] [address] [facility] [address] [place] [address] Nj Johns MD [address] [facility] [address] [place] [address] documented as of this encounter Procedures Procedure Name Priority Date/Time Associated Diagnosis Comments MAMMOGRAPHY OUTSIDE IMAGES 04/16/2015 3:29 PM EDT documented in this encounter Results * MAMMOGRAPHY OUTSIDE IMAGES (04/16/2015 3:29 PM EDT) Anatomical Region Laterality Modality Breast Mammography 04/16/2015 3:29 PM EDT us External Provider IMG BI PROCEDURES Edited Resul t - Final documented in this encounter Visit Diagnoses Not on filedocumented in this encounter Care Teams Director Volunteer Services Relationship Specialty Start Date End Date Trevor Rolon DO [address] [address] PCP - General 11/22/20 Mc Grant DO [address] [address] Referring Physician Gastroenterology 02/21/24 El Agarwal APRN [address] [place] [address] Referring Physician Gastroenterology 03/21/25 documented as of this encounter
--- OUTSIDE RECORDS SUMMARY | 2025-05-23 23:28 | XMS_ITS | Encounter Summary ---
Author Organization [facility] Address [address] [place] [address] Care Team Providers Care Office Inspector Name Role Phone Trevor Rolon DO Primary Care Provider Mc Grant DO Unavailable [phone] El Agarwal CAFETERIA OR LUNCHROOM CHECKER Unavailable [phone] Encounter Details Date Type Department Care Team (Latest Contact Info) Description 05/14/2025 Travel Social History Tobacco Use Types Packs/Day [...] EST Appointment P[facility] G Radiology [address] [place] [address] 05/25/2025 2:00 PM EST Appointment [facility] Pulmonary Function Testing [address] [place] [address] 05/25/2025 3:30 PM EST Appointment Cardiac Imaging [address] [place] [address] 05/31/2025 4:30 PM EST Appointment [facility] Breast Care Center Comprehensive Breast Care Center [facility] [address] [place] [address] 06/12/2025 2:30 PM EST Office Visit [facility] [place] [address] [facility], [address] [place] [address] Juana Gale APRN [address] [place] [address] 06/20/2025 10:30 AM EST Procedure Visit [facility] [address], 1st [place] [address] Claire Davidson MD [address] [address] 06/21/2025 2:00 PM EST Office Visit [facility] [address] [facility], [address] [place] [address] Claire Davidson MD [id number] [place] [address] 07/17/2025 8:45 AM EST Clinical Support [facility] Transplant Center [address] [address] 07/17/2025 10:30 AM EST Office Visit [facility] Trans[facility] [place] [address] [address] Nj Johns MD [address] [facility] [address] [place] [address] documented as of this encounter Visit Diagnoses [...] documented as of this encounter Care Teams Office Inspector Relationship Specialty Start Date End Date Trevor Rolon DO [address] [facility] [address] [place] [address] PCP - General 11/22/20 Mc Grant DO [address] [facility] 201 [place] [address] Referring Physician Gastroenterology 02/21/24 El Agarwal APRN [address] [place] [address] Referring Physician Gastroenterology 03/21/25 documented as of this encounter
--- OUTSIDE RECORDS SUMMARY | 2025-05-23 23:28 | XMS_ITS | Encounter Summary ---
Author Organization [facility] nter Address [address] [place] [address] Care Team Providers Care Lean Manager Name Role Phone Trevor Rolon DO Primary Care Provider Lucy Christopher DO Unavailable Encounter Details Date Type Department Care Team (Late st Contact Info) Description 04/16/2025 Abstract [facility] [address], 2nd Floor Clinic [place] [phone] El Agarwal, POLICE PATROL OFFICER [address], [place] [address] Social History Tobacco Use Types Packs/Day Years [...] GASTROENTEROLOGY PRACTICE [address] 2nd [place] [address] 06/27/2025 10:00 AM EST Office Visit [facility] [address] [place] [address] Demario Silva DO 1 [place] [address] 08/16/2025 10:00 AM EST Office Visit [facility] [address] 8th [place] [address] Brigitte Mahoney NP 1 [place] [address] 09/18/2025 1:30 PM EDT Office Visit [facility]HEUMAT[facility] [address] 8th [place] [address] Suman Treviño MD [address] [place] [address] 12/13/2025 1:15 PM EDT Office Visit [facility] [address], 7th Floor Clinic [place] [address] Janice Woodward, CLAU [address] [place] [facility] documented as of this encounter Visit Diagnoses Not on filedocumented in this encounter Additional Health Concerns Assessment Noted Time PHQ-9 Depression Total Score: 0 07/24/19 23 3:00 PM EST documented as of this encounter Care Teams Lean Manager Relationship Specialty Start Date End Date Trevor Rolon DO [address] [facility] [address] [place] [address] PCP - General Lucy Christopher DO [address] [place] [address] Consulting Physician Oncology 10/17/24 documented as of this encounter
--- OUTSIDE RECORDS SUMMARY | 2025-05-23 23:28 | XMS_ITS | Encounter Summary ---
Author Organization [facility] Address [address] [place] [address] Care Team Providers Care Drilling Rig Operator Name Role Phone Trevor Rolon DO Primary Care Provider [phone] Mc Grant DO Unavailable [phone] El Agarwal CARETAKER GROUNDS Unavailable [phone] Encounter Details Date Type Department Care Team (Late st Contact Info) Description 05/17/2025 Telephone [facility] A Radiology [address] [place] [address] Shelby Escamilla, RN [facility]-DIAGNOSTIC RADIOLOGY Social History [...] EST Appointment [facility] G Radiology [address] [place] [address] 05/25/2025 2:00 PM EST Appointment P[facility] H Pulmonary Function Testing [address] [place] [address] 05/25/2025 3:30 PM EST Appointment Cardiac Imaging [address] [place] [address] 05/31/2025 4:30 PM EST Appointment P[facility] Breast Care Center [facility] Breast Care [facility] [place] [facility] [address] [place] [address] 06/12/2025 2:30 PM EST Office Visit [facility] [place] [address] [facility], [address] [place] [address] Juana Gale, CARETAKER GROUNDS [address] [place] [address] 06/20/2025 10:30 AM EST Procedure Visit [facility] Clinic [address], 1st [place] [address] Claire Davidson MD [id number] [place] [address] 06/21/2025 2:00 PM EST Office Visit [facility] [address] [facility], [address] [place] [address] Claire Davidson MD [address] [facility] [address] [place] [address] 07/17/2025 8:45 AM EST Clinical Support [facility] Transplant Center [address] [facility] [address] [place] [address] 07/17/2025 10:30 AM EST Office Visit [facility] Transplant Center [address] [place] [address] Nj Johns MD [address] [place] [address] documented as of this encounter Visit Diagnoses [...] documented as of this encounter Care Teams Drilling Rig Operator Relationship Specialty Start Date End Date Trevor Rolon DO [address] [facility] 201 [place] [address] PCP - General 11/22/20 Mc Grant DO [address] [facility] 201 [place] [address] Referring Physician Gastroenterology 02/21/24 El Agarwal APRN [address] [place] [address] Referring Physician Gastroenterology 03/21/25 documented as of this encounter
--- OUTSIDE RECORDS SUMMARY | 2025-05-23 23:29 | XMS_ITS | Encounter Summary ---
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 More than 4 [...] PRACTICE [address], 2nd [place] [address] 06/27/2025 10:00 AM EST Office Visit [facility] SLEEP LAB PRACTICE [address], [place] [address] Demario Silva DO [address] [place] [address] 08/16/2025 10:00 AM EST Office Visit [facility] ENDOCRINOLOGY PRACTICE [address], 8th [place] [address] Brigitte Mahoney NP [address] [facility] [place] [address] 09/18/2025 1:30 PM EDT Office Visit [facility] RHEUMATOLOGY PRACTICE [address], 8th [place] [address] Suman Treviño MD [address] [facility] [place] [address] 12/13/2025 1:15 PM EDT Office Visit [facility] OBGYN PRACTICE [address], 7th [place] [address] Janice Woodward NP [address] [place] [phone] documented as of this encounter Results * [...] Newton MD 04/29/2024 10:41 AM EDT RPWorkstation: [id number] us Aubrie Hyde NP IMEvelyn US PROCEDURES Final Result * AFP tumor marker (04/28/2024 9:32 AM EDT) [facility] AFP Tumor Marker 6.5 0.0 - 9.2 ng/mL 04/29/2024 4:06 AM EDT [facility] ([place] Comment: [employer] Electrochemiluminescence Immunoassay (ECLIA) Values obtained with different assay methods or kits cannot be used interchangeably. Results cannot be interpreted as absolute evidence of the presence or absence of malignant disease. This test is not interpretable in females. Blood Venous blood specimen / Unknown Venipuncture / Unknown 04/28/2024 9:32 AM EDT 04/28/2024 9:32 AM EDT Narrative [facility] ([place]) - 04/29/2024 4:06 AM EDT Performed at: - [address] [id number] Retort Setter: Raphael Edwards PhD, Phone: [phone] us Aubrie Hyde NP LAB BLOOD ORDERABLES Final Resul t MANNY NICHOLAS) [address] [place] [address], * (ABNORMAL) Protime-INR (04/28/2024 9:32 AM EDT) [facility] Protime 12.9(H) 9.2 - 12.5 seconds LAB COAGULATION METHOD 04/28/2024 10:35 AM EDT [facility] INR 1.22(H) 0.84 - 1.18 LAB COAGULATION METHOD 04/28/2024 10:35 AM EDT [facility] Comment: The INR should only be used in stable anticoagulated patients. Recommended therapeutic ranges: Condition INR Prevention or treatment of DVT 2.0-3.0 Acute MS Prevention of Stroke 2.0-3.0 Prevention of recurrent MS 2.5-3.5 Atrial fibrillation Prevention of systemic embolism 2.0-3.0 Cardiac valve replacement (mechanical valves) 2.5-3.5 Blood Venous blood specimen / Unknown Venipuncture / Unknown 04/28/2024 9:32 AM EDT 04/28/2024 9:32 AM EDT us Aubrie May HIDE AND SKIN CLASSER LAB BLOOD ORDERABLES Final Resul t Performing Organization Address City/[facility]/ZIP Co de Phone Number [facility] [address] [place] [address], * (ABNORMAL) Hepatic function panel (04/28/2024 9:32 AM EDT) Total Bilirubin 1.5(H) 0.3 - 1.0 mg/dL 04/28/2024 11:09 AM EDT [facility] Bilirubin, Direct 0.4(H) 0.0 - 0.2 mg/dL 04/28/2024 11:09 AM [facility] Alkaline Phosphatase 179(H) 29 - 108 U/L 04/28/2024 11:09 AM [facility] AST 53(H) 10 - 28 U/L 04/28/2024 11:09 AM [facility] ALT (SGPT) 30 <=40 U/L 04/28/2024 11:09 AM [facility] Albumin 3.7 3.5 - 5.1 g/dL 04/28/2024 11:09 AM [facility] Total Protein 7.3 5.9 - 7.9 g/dL 04/28/2024 11:09 AM [facility] Blood Venous blood specimen / Unknown Venipuncture / Unknown 04/28/2024 9:32 AM EDT 04/28/2024 9:32 AM EDT [facility] - 04/28/2024 11:09 AM EDT Results for ALT may be adversely affected when samples are collected on patients taking Sulfasalazine and/or Sulfapyridine. Please note possible changes in reference range and units reported due to change in methodology. us Aubrie May HIDE AND SKIN CLASSER LAB BLOOD ORDERABLES Final Resul t Performing Organization Address [facility]/ZIP Co de Phone Number [facility] [address] [place] [address], * (ABNORMAL) Basic metabolic panel (04/28/2024 9:32 AM EDT) Glucose 117(H) 58 - 104 mg/dL 04/28/2024 11:49 AM [facility] Sodium 139 134 - 143 mmol/L 04/28/2024 11:49 AM [facility] Potassium 3.6 3.2 - 4.6 mmol/L 04/28/2024 11:49 AM [facility] Chloride 105 99 - 108 mmol/L 04/28/2024 11:49 AM [facility] CO2 28 19 - 29 mmol/L 04/28/2024 11:49 AM [facility] Anion Gap 6 5 - 15 mmol/L 04/28/2024 11:49 AM [facility] BUN 15 7 - 20 mg/dL 04/28/2024 11:49 AM [facility] Creatinine 0.83 <=1.20 mg/dL 04/28/2024 11:49 AM [facility] BUN/Creatinine Ratio 18.07 10.00 - 20.00 ratio 04/28/2024 11:49 AM [facility] Calcium 9.6 7.9 - 11.1 mg/dL 04/28/2024 11:49 AM [facility] eGFR (CKD-EPI) 80.2 >60.0 - 200.0 mL/min/1.7 3m*2 04/28/2024 11:49 AM [facility] Blood Venous blood specimen / Unknown Venipuncture / Unknown 04/28/2024 9:32 AM EDT 04/28/2024 9:32 AM ED Narrative [facility] - 04/28/2024 11:49 AM EDT Please note possible changes in reference range and units reported due to change in methodology. us Aubrie Hyde NP LAB BLOOD ORDERABLES Final Resul t [facility] [address] [place] [address], [place] [phone] * (ABNORMAL) CBC (04/28/2024 9:32 AM EDT) Auto WBC 4.8 3.8 - 11.0 10*3/uL 04/28/2024 10:21 AM EDT [facility] RBC 4.43 3.73 - 5.13 10*6/uL 04/28/2024 10:[facility] Hemoglobin 14.9 11.2 - 15.3 g/dL 04/28/2024 10:21 [facility] Hematocrit 42.9 32.6 - 44.6 % 04/28/2024 10:21 AM [facility] MCV 96.9(H) 78.8 - 96.0 fL 04/28/2024 10:21 AM [facility] MCH 33.6(H) 26.2 - 33.0 pg 04/28/2024 10:21 AM [facility] MCHC 34.7 32.7 - 35.1 g/dL 04/28/2024 10:21 AM [facility] RDW 13.1 12.1 - 16.1 % 04/28/2024 10:21 AM [facility] Platelets 93(L) 138 - 402 10*3/uL 04/28/2024 10:21 AM [facility] MPV 8.2 7.0 - 10.6 fL 04/28/2024 10:21 AM [facility] Blood Venous blood specimen / Unknown Venipuncture / Unknown 04/28/2024 9:32 AM EDT 04/28/2024 9:32 AM EDT us Aubrie Hyde NP LAB BLOOD ORDERABLES Final Resul t [facility] [address] [place] [address], [place] [phone] documented in this encounter Visit Diagnoses Diagnosis [...] as of this encounter Care Teams Nurse General Duty Relationship Specialty Start Date End Date Trevor Rolon DO [address] [facility] [address] [place] [address] PCP - General Lucy Christopher DO [address] [facility] [address] [facility] [place] [address] Consulting Physician Oncology 10/17/24 documented as of this encounter
--- OUTSIDE RECORDS SUMMARY | 2025-05-23 23:29 | XMS_ITS | Encounter Summary ---
Author Organization [facility] nter Address [address] [place] [address] Care Team Providers Care Sales Professional Bilingual Name Role Phone Trevor Rolon DO Primary Care Provider Lucy Christopher DO Unavailable Reason for Visit * Reason Comments Med Refill Encounter Details Date Type Department Care Team (Late st Contact Info) Description 01/17/2024 Refill [facility] [address], [address] [place] [address] Lupe Villalta, ELECTRIC TOOL REPAIRER [address] [place] [address] Social History Tobacco Use Types [...] [facility] GASTRO[facility]OLOGY [facility] [address] 2nd [place] [address] 06/27/2025 10:00 AM EST Office Visit [facility] SLEEP LAB PRACTICE [address] [place] [phone] Demario Silva DO 1 [place] [address] 08/16/2025 10:00 AM EST Office Visit [facility] ENDOCRINOLOGY PRACTICE [address] 8th [place] [address] Brigitte Mahoney NP [address] [place] [address] 09/18/2025 1:30 PM EDT Office Visit [facility] RHEUMATOLOGY PRACTICE [address] 8th [place] [address] Suman Treviño MD [address] [place] [address] 12/13/2025 1:15 PM EDT Office Visit [facility] OBGYN PRACTICE [address], 7th [place] [address] Janice Woodward, ELECTRIC TOOL REPAIRER [address] [place] [address] documented as of this encounter Visit Diagnoses Not on filedocumented in this encounter Additional Health Concerns Assessment Noted Time PHQ-9 Depression Total Score: 0 07/24/19 23 3:00 PM EST documented as of this encounter Care Teams Sales Professional Bilingual Relationship Specialty Start Date End Date Trevor Rolon DO [address] [facility] [address] [place] [id number] PCP - General Lucy Christopher DO [address] [facility] [place] [address] Consulting Physician Oncology 10/17/24 documented as of this encounter
--- OUTSIDE RECORDS SUMMARY | 2025-05-23 23:29 | XMS_ITS | Encounter Summary ---
Author Organization [facility] nter Address [address] [place] [address] Care Team Providers Care Telesales Professional Name Role Phone Trevor Rolon DO Primary Care Provider Lucy Christopher DO Unavailable Encounter Details Date Type Department Care Team (Late st Contact Info) Description 02/16/2024 Orders Only [facility] [address], 2nd [place] [phone] Rosita Cortez, CORWIN [address] [place] [phone] Social History Tobacco Use Types Packs/Day Years [...] you attend [facility] or yazidism services? More than 4 [...] [address], 2nd [place] [address] 06/27/2025 10:00 AM EST Office Visit [facility] SLEEP LAB PRACTICE [address] [place] [phone] Demario Silva DO [address] [place] [address] 08/16/2025 10:00 AM EST Office Visit [facility] ENDOCRINOLOGY PRACTICE [address], 8th [place] [address] Brigitte Mahoney NP [address] [place] [address] 09/18/2025 1:30 PM EDT Office Visit [facility] RHEUMATOLOGY PRACTICE [address], 8th [place] [address] Suman Treviño MD [address] [place] [address] 12/13/2025 1:15 PM EDT Office Visit [facility] [address], 7th Floor [place] [phone] Janice Woodward, CLAU [address] [place] [facility] documented as of this encounter Visit Diagnoses Not on filedocumented in this encounter Additional Health Concerns Assessment Noted Time PHQ-9 Depression Total Score: 0 07/24/19 23 3:00 PM EST documented as of this encounter Care Teams Telesales Professional Relationship Specialty Start Date End Date Trevor Rolon DO [address] [facility] [address] [place] [id number] PCP - General Lucy Christopher DO [address] [place] [address] Consulting Physician Oncology 10/17/24 documented as of this encounter
--- OUTSIDE RECORDS SUMMARY | 2025-05-23 23:29 | XMS_ITS | Encounter Summary ---
Author Organization [facility] nter Address [address] [place] [address] Care Team Providers Care Interventional Physiatrist Name Role Phone Trevor Rolon DO Primary Care Provider Lucy Christopher DO Unavailable Reason for Visit * Reason Comments Med Refill Encounter Details Date Type Department Care Team (Late st Contact Info) Description 09/14/2023 Refill [facility] NEUROLOGY PRACT[facility] [address], 8[address] Floor Clinic [place] [id number] Lupe Villalta, SMOKE TESTER [address] [facility] [place] [address] Social History Tobacco Use Types [...] any clubs o r organizations such as protestant groups, unions, fraternal or athletic groups, or [...] GASTROENTEROLOGY PRACTICE [address] 2[address] [place] [address] 06/27/2025 10:00 AM EST Office Visit [facility] [address] [place] [id number] Demario Silva DO [address] [place] [address] 08/16/2025 10:00 AM EST Office Visit [facility] [address] [place] [address] Brigitte Mahoney NP [address] [place] [address] 09/18/2025 1:30 PM EDT Office Visit [facility] [address] 8[address] [place] [facility] [place] [address] Suman Treviño MD [address] [facility]. [place] [address] 12/13/2025 1:15 PM EDT Office Visit [facility] [address] 7[address] [place] [address] Janice Woodward, CLAU [address] [place] [address] documented as of this encounter Visit Diagnoses Not on filedocumented in this encounter Additional Health Concerns Assessment Noted Time PHQ-9 Depression Total Score: 0 07/24/19 23 3:00 PM EST documented as of this encounter Care Teams Interventional Physiatrist Relationship Specialty Start Date End Date Trevor Rolon DO [address] [facility] [address] [place] [address] PCP - General Lucy Christopher DO [address] [facility] [place] [address] Consulting Physician Oncology 10/17/24 documented as of this encounter
--- OUTSIDE RECORDS SUMMARY | 2025-05-23 23:29 | XMS_ITS | Encounter Summary ---
Author Organization [facility] nter Address [address] [place] [address] Care Team Providers Care Field Kiln Burner Name Role Phone Trevor Rolon DO Primary Care Provider Lucy Christopher DO Unavailable Reason for Visit * Reason Comments Med Refill Encounter Details Date Type Department Care Team (Late st Contact Info) Description 09/10/2023 Refill [facility] [address] 9[address] [place] [address] Marc Back, OD [address] [place] [address] Keratoconjunctivitis sicca of both eyes not specified [...] week 07/24/2022 How often do you attend [facility] or christianity services? More than 4 times per year [...] PRACTICE [address] 2[address] [place] [address] 06/27/2025 10:00 AM EST Office Visit [facility] SLEEP LAB PRACTICE [address] [place] [address] Demario Silva DO [address] [place] [address] 08/16/2025 10:00 AM EST Office Visit [facility] [...] [address] 12/13/2025 1:15 PM EDT Office Visit [facility] OBGYN PRACTICE [address] 7[address] Floor [place] [address] Janice [place] NP [address] [place] [facility] documented as of this encounter Visit Diagnoses Diagnosis Keratoconjunctivitis sicca of both eyes not specified as Sjogren's documented in this encounter Additional Health Concerns Assessment Noted Time PHQ-9 Depression Total Score: 0 07/24/19 23 3:00 PM EST documented as of this encounter Care Teams Field Kiln Burner Relationship Specialty Start Date End Date Trevor Rolon DO [address] [facility] [address] [place] [address] PCP - General Lucy Christopher DO [address] [place] [address] Consulting Physician Oncology 10/17/24 documented as of this encounter
--- OUTSIDE RECORDS SUMMARY | 2025-05-23 23:29 | XMS_ITS | Encounter Summary ---
Author Organization [facility] nter Address [address] [place] [address] Care Team Providers Care Supplier Quality Name Role Phone Trevor Rolon DO Primary Care Provider Lucy Christopher DO Unavailable Encounter Details Date Type Department Care Team (Late st Contact Info) Description 02/14/2024 Orders Only [facility] [address] 8[address] [place] [address] Lupe Villalta, BOWSTRING MAKER [address] [place] [address] Social History Tobacco Use Types [...] GASTROENTEROLOGY PRACTICE [address] 2[address] [place] [address] 06/27/2025 10:00 AM EST Office Visit [facility] [address] [place] [address] Demario Silva DO [address] [place] [address] 08/16/2025 10:00 AM EST Office Visit [facility] [address] [place] [address] Brigitte Mahoney NP [address] [place] [address] 09/18/2025 1:30 PM EDT Office Visit [facility] [address] 8[address] [place] [address] Suman Treviño MD [address] [place] [address] 12/13/2025 1:15 PM EDT Office Visit [facility] [address] 7[address] Floor [place] [address] Janice [place], CLAU [address] [place] [facility] documented as of this encounter Visit Diagnoses Not on filedocumented in this encounter Additional Health Concerns Assessment Noted Time PHQ-9 Depression Total Score: 0 07/24/19 23 3:00 PM EST documented as of this encounter Care Teams Supplier Quality Relationship Specialty Start Date End Date Trevor Rolon DO [address] [facility] [address] [place] [address] PCP - General Lucy Christopher DO [address] [place] [address] Consulting Physician Oncology 10/17/24 documented as of this encounter
[2025-05-23 23:30] VITALS: PULSE 130; RESP 18; O2SAT 96
--- NOTE | 2025-05-23 23:34 | ECG_ITS ---
APPROVED REPORT Exam: Resting ECG HR:131 bpm ECG Measurements Heart Rate 131 AXES [place] 120 P 62 QRSd 84 QRS 31 QT 310 T 58 QTc 387 Conclusion SINUS TACHYCARDIA ABNORMAL RHYTHM ECG No STEMI Electronically signed by : KAYE ARENAS, 05/24/2025 03:03:39
[2025-05-23 23:37] LABS: Adenovirus,PCR Not Detected (NotDetected); Chlamydophila Pneumoniae, PCR Not Detected (NotDetected); Coronavirus 19, PCR Not Detected (NotDetected); Coronovirus HKU1,PCR Not Detected (NotDetected); Influenza A, PCR Not Detected (NotDetected); Influenza AH1, 2009 Not Detected (NotDetected); Influenza AH1, PCR Not Detected (NotDetected); Influenza AH3,PCR Not Detected (NotDetected); Influenza B, PCR Not Detected (NotDetected); Mycoplasma Pneumoniae, PCR Not Detected (NotDetected); Parainfluenza 1, PCR Not Detected (NotDetected); Parainfluenza 2, PCR Not Detected (NotDetected); Parainfluenza 3, PCR Not Detected (NotDetected); Parainfluenza 4, PCR Not Detected (NotDetected)
[2025-05-23 23:45] LABS: Troponin I 0.02 ng/ml (0.00-0.034)
[2025-05-23 23:53] LABS: Microscopic, Urine URINE MICROSCOPIC (MICROSCOPIC)
[2025-05-23] MEDS: IOPAMIDOL-370 (76%);100ML BOTTLE 75 ML IV (23:54)
[2025-05-23] MEDS: SODIUM CHLORIDE 0.9% 10ML SYR (RAD ONLY) 10 ML IV (23:54)
[2025-05-23] MEDS: PIPERACILLIN/TAZO 4.5 GM in 0.9 % SODIUM CHLORIDE 100 ML IV (23:58)
[2025-05-24] VITALS (13 sets, daily range): BP systolic 110–142; BP diastolic 61–73; PULSE 125–126; RESP 15–23; TEMP 37.1; O2SAT 97–99
[2025-05-24] MEDS: VANCOMYCIN/WATER FOR INJ (PEG) 1.75 GM/350 ML PIGGYBACK IV (00:14)
[2025-05-24 00:20] LABS: Bilirubin,Urine Negative (Negative); Glucose,Urine (UA) 3+ (Negative); Ketones,Urine Negative (Negative); Leukocyte Esterase,Urine Negative (Negative); PH,Urine 6.0 (5.0-8.5); Protein,Urine Negative (Negative); Specific Gravity, Urine 1.020 (1.005-1.030); Urobilinogen,Urine 0.2 EU/dl (0.2)
[2025-05-24 00:21] LABS: Color,Urine Amber (Yellow)
[2025-05-24 00:22] LABS: Hepatitis C Ab Qual. W/ RFX NEGATIVE (Negative)
[2025-05-24 00:26] LABS: Bacteria,Urine 1+ /lpf; RBC,Urine Occasional #/hpf (0-3); WBC,Urine Occasional #/hpf (0-3)
[2025-05-24] MEDS: VANCOMYCIN CONSULT REQUEST 1 EACH NOTAPPLIC (00:53)
--- NOTE | 2025-05-24 01:24 | PC.NURSE ---
Report called to Bridgette OLIVIA at [facility]
[2025-05-24] MEDS: RINGERS SOLUTION,LACTATED 500 ML 999 ML IV (01:38)
[2025-05-24 11:04] LABS: Acinetobacter calcoaceticus-ba Not Detected; Bacteroides fragilis Not Detected; CTX-M Not Detected; Candida auris Not Detected; Candida glabrata Not Detected; Enterobacterales Detected; Enterococcus faecalis Not Detected; Enterococcus faecium Not Detected; IMP Not Detected; KPC Not Detected; Klebsiella aerogenes Not Detected; Klebsiella pneumoniae grp Not Detected; NDM Not Detected; OXA-48-like Not Detected; Proteus spp. Not Detected; Salmonella spp. Not Detected; Serratia marcescens Not Detected; Staphylococcus epidermidis Not Detected; Staphylococcus lugdunensis Not Detected; Staphylococcus spp. Not Detected; Stenotrophomonas maltophilia Not Detected; Streptococcus agalactiae(GrpB) Not Detected; Streptococcus pyogenes Group A Not Detected; Streptococcus spp. Not Detected; VIM Not Detected; mcr-1 Not Detected
[2025-05-24 11:31] LABS: Acinetobacter calcoaceticus-ba Not Detected; Bacteroides fragilis Not Detected; CTX-M Not Detected; Candida auris Not Detected; Candida glabrata Not Detected; Enterobacterales Detected; Enterococcus faecalis Not Detected; Enterococcus faecium Not Detected; IMP Not Detected; KPC Not Detected; Klebsiella aerogenes Not Detected; Klebsiella pneumoniae grp Not Detected; NDM Not Detected; OXA-48-like Not Detected; Proteus spp. Not Detected; Salmonella spp. Not Detected; Serratia marcescens Not Detected; Staphylococcus epidermidis Not Detected; Staphylococcus lugdunensis Not Detected; Staphylococcus spp. Not Detected; Stenotrophomonas maltophilia Not Detected; Streptococcus agalactiae(GrpB) Not Detected; Streptococcus pyogenes Group A Not Detected; Streptococcus spp. Not Detected; VIM Not Detected; mcr-1 Not Detected
--- NOTE | 2025-05-25 04:22 | PC.NURSE ---
spoke with patients nurse, CORWIN Huston at [facility]. Blood culture results shared at this time
== END 2025-05-24 02:12 | disposition short-term general hospital (02) ==
PROVIDERS: Emergency Provider Emergency Medicine
DX: R10.84 Generalized abdominal pain (principal); A41.9 Sepsis, unspecified organism; R65.20 Severe sepsis without septic shock; K72.90 Hepatic failure, unspecified without coma; E87.1 Hypo-osmolality and hyponatremia
CPT/HCPCS: 0223U; 71045; 74177; 80053; 81001; 83605; 83690; 84484; 85025; 85610; 85730; 86803; 87040; 87077; 87154; 87186; 87389; 93005; 96365; 96367; 96375; 99285; 99291; J2270; J2405; J2543; J3375; J7120; Q9967

== ENCOUNTER 2025-06-15 08:32 | Outpatient (CLI) | payer OTHER, SELFPAY ==
--- NOTE | 2025-06-15 09:00 | US_ITS ---
FINAL REPORT CLINICAL HISTORY: ROSAS WELSH -- 3150 ML REMOVED - ASCITES - LT SIDE FINDINGS: ULTRASOUND-GUIDED PARACENTESIS HISTORY:Ascites ATTENDING PHYSICIAN: Dr. Williamson PHYSICIAN APERTURE MASK ETCHER: Rosas Harrington PA-C FINDINGS: After informed consent was obtained and timeout procedure performed, fluid was localized in the left lower quadrant under ultrasound guidance and marked on the skin appropriately. The patient was then prepped and draped in the usual sterile fashion and the skin was anesthetized with 1% lidocaine. An ultrasound guided paracentesis was then performed using a Turkel needle. Approximately 3.15 liters of fluid was removed. A portion of thefluid was sent to lab. The patient tolerated the procedure well and there were no immediate complications. IMPRESSION: Ultrasound guided left lower quadrant paracentesis as discussed above. Reviewed, Interpreted and Dictated by Corine Williamson MD Transcribed by BLAISE German Authenticated and . [facility]
[2025-06-15 10:39] LABS: Hematocrit 32.9 % (37.0-47.0); Hemoglobin 11.4 g/dL (12.2-16.2); Immature Granulocytes % 1.2 %; Mean Corpuscular HGB Conc 34.7 g/dL (31.8-35.4); Mean Corpuscular Hemoglobin 36.3 pg (27.0-31.2); Mean Corpuscular Volume 104.8 fl (81-99); Nucleated Red Blood Cells % 0 %; Platelet Count 93 K/mm3 (142-424); Red Blood Count 3.14 M/mm3 (4.20-5.40); Red Cell Distribution Width-SD 54.6 fL; White Blood Count 8.5 K/mm3 (4.8-10.8)
[2025-06-15 10:44] LABS: Ammonia < 9 umol/L (9-30)
[2025-06-15 10:46] LABS: INR 1.39 (0.9-1.1); Prothrombin Time 15.1 seconds (10.1-12.5)
[2025-06-15 11:46] LABS: Alanine Aminotransferase 53 U/L (12-78); Albumin Level 2.8 g/dl (3.5-5.0); Albumin/Globulin Ratio 0.7 (1.1-1.8); Alkaline Phosphatase 211 U/L (38-126); Anion Gap 6.9 mEq/L (5-15); Aspartate Amino Transferase 79 U/L (14-36); Bilirubin,Total 4.9 mg/dl (0.2-1.3); Blood Urea Nitrogen 24 mg/dl (7-17); Calcium 8.7 mg/dl (8.4-10.2); Carbon Dioxide 25 mmol/L (22.0-30.0); Chloride 95 mmol/L (98-107); Creatinine,Serum 1.30 mg/dl (0.52-1.04); Estimated Glomerular Filt Rate 43 ml/min (>60); GFR (African American) 51 ML/MIN (>60); Globulin 3.9 g/dL (1.3-3.2); Glucose 125 mg/dl (74-100); Potassium 3.9 mmoL/L (3.5-5.1); Sodium 123 mmol/L (136-145); Total Protein,Serum 6.7 g/dl (6.3-8.2)
[2025-06-15 12:34] LABS: Appearance,Body Fld. Cloudy; Volume,Body Fld. 3150 mL
[2025-06-15 12:35] LABS: RBC,Body Fluid < 2000 cells/uL (< 10 X 10^3)
[2025-06-15 12:36] LABS: TNC,Body Fluid 156 cells/uL (< 1000)
[2025-06-15 14:53] LABS: Mononuclear WBCs,Body Fluid 72 %; Polynuclear WBC,Body Fluid 28 %
[2025-06-15 15:01] LABS: Source, Body Fld. Paracentesis Fluid
[2025-06-16 13:10] LABS: Albumin, Body Fluid 0.2 g/dL (Not Estab.)
== END 2025-06-15 23:59 | disposition home or self-care (01) ==
LOC: RAD 08:32
PROVIDERS: PCP Family Medicine; Visit Provider Family Medicine
DX: K72.90 Hepatic failure, unspecified without coma (principal); R18.8 Other ascites; K75.81 Nonalcoholic steatohepatitis (NASH)
CPT/HCPCS: 36415; 49083; 80053; 82042; 82140; 85025; 85610; 89051

== ENCOUNTER 2025-06-21 14:24 | Emergency (ER) | payer OTHER, SELFPAY ==
[2025-06-21 14:37] VITALS: BP 132/69; PULSE 93; PULSE 99; RESP 18; TEMP 36.7; O2SAT 100; O2SAT 98; BMI 35.6
--- NOTE | 2025-06-21 14:58 | HMH.EDGENADL ---
Discharge Plan Disposition Patient Disposition: Home, Self-Care Prescriptions Prescriptions: No Action bumetanide 2 mg tablet 2 mg PO BID Qty: 60 5RF metoprolol succinate 50 mg tablet extended release 24 hr 50 mg PO DAILY Qty: 90 3RF pregabalin 25 mg capsule 25 mg PO BID Qty: 60 5RF lansoprazole 30 mg capsule,delayed release(DR/EC) 30 mg PO DAILY Qty: 90 3RF lisinopril 2.5 mg tablet 2.5 mg PO DAILY Qty: 90 3RF magnesium oxide 400 mg magnesium tablet 400 mg PO BID Qty: 180 3RF buspirone 7.5 mg tablet 7.5 mg PO BID Qty: 180 3RF zinc sulfate 50 mg zinc (220 mg) capsule 50 mg PO DAILY Qty: 90 3RF desvenlafaxine succinate 50 mg tablet extended release 24 hr 50 mg PO DAILY Qty: 90 3RF ferrous sulfate [FeroSul] 325 mg (65 mg iron) tablet 325 mg PO DAILY Qty: 90 3RF (DME) FreeStyle Lite Strips Strip See Rx Instructions .ROUTE .MEDSUPPLY Qty: 10 Rx Instructions: As directed ondansetron 8 mg tablet,disintegrating PO promethazine 25 mg tablet PO (DME) Dexcom G7 Sensor Device See Rx Instructions .ROUTE .MEDSUPPLY Qty: 1 Rx Instructions: As directed (DME) insulin syringe-needle U-100 [Ultra-Fine Insulin Syringe] 1 mL 31 gauge x 15/64 syringe See Rx Instructions .ROUTE .MEDSUPPLY Qty: 10 Rx Instructions: As directed (DME) lancets [FreeStyle Lancets] 28 gauge misc See Rx Instructions .ROUTE .MEDSUPPLY Qty: 100 Rx Instructions: As directed cyclobenzaprine 10 mg tablet 10 mg PO HS diclofenac sodium 1 % gel topical QID PRN ergocalciferol (vitamin D2) 1,250 mcg (50,000 unit) capsule 1,250 mcg PO QWEEK insulin aspart U-100 100 unit/mL (3 mL) insulin pen 1 sliding scale dose SQ TID Jardiance 25 mg tablet PO DAILY lactulose 10 gram/15 mL solution 15 ml PO DAILY oxycodone 5 mg tablet 5 mg PO Q4-6H Ozempic 1 mg/dose (4 mg/3 mL) pen injector 1 mg SQ QWEEK Xifaxan 550 mg tablet 550 mg PO BID ropinirole 1 mg tablet 1 mg PO QID spironolactone 100 mg tablet 200 mg PO QAM valacyclovir 1 gram tablet 500 mg PO DAILY simvastatin 20 mg tablet 20 mg PO DAILY Referrals Follow up/Referrals: Jesus Luis MD [Primary Care Provider, [facility]] - See instructions Activity Restrictions/Add. Instructions Additional Instructions/Restrictions: Your MELD NA score today was 20. You had a moderate amount of ascites but after risk-benefit discussion we opted to not do paracentesis. As discussed we are here 01/02 if you change your mind and you symptomatically get to the point where you feel like you need it again. In the meantime I would recommend you follow-up closely with your liver testing coordinator if you are not communicating with you appropriately you may return to our emergency department and we will call and establish closer follow-up to advocate on your behalf. Clinical Impressions Clinical Impression: Decompensated cirrhosis, Ascites Instructions Patient Instructions: DI for Acute Abdominal Pain Print Language Print Language: Hebrew Discharge ED Provider: Ronny Chaney General Adult HPI General Chief complaint: Abdominal Pain Stated complaint: Swelling in Abdomen and Legs Time Seen by Provider: 06/21/25 14:36 Mode of Arrival: Ambulatory Source of Information: Patient Description of Symptoms (Recalled from ER Triage Doc. by RN): Pt presents for evaluation of abdominal swelling. Pt states she was diagnosed with cirrhosis in 2018, and is on the liver transplant list. Pt states 1 week ago she had a paracentesis performed and 3L was drained off. 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 States that she had 3 L drained off and claims that she is gained a significant amount of fluid recently. No significant respiratory distress at the moment. She was unable to contact her testing coordinator at [facility] after this most recent paracentesis. MELD was 27 on Wednesday. Related Data Home Medications ?Medication ?Instructions ?Recorded ?Confirmed blood sugar diagnostic (FreeStyle #10 ea 05/02/25 06/14/25 Lite Strips) blood-glucose sensor (Dexcom G7 #1 ea 05/02/25 06/14/25 Sensor device) insulin syringe-needle U-100 1 mL #10 ea 05/02/25 06/14/25 31 gauge x 15/64 (Ultra-Fine Insulin Syringe) lancets 28 gauge (FreeStyle #100 ea 05/02/25 06/14/25 Lancets) ondansetron 8 mg disintegrating mg PO 05/02/25 06/14/25 tablet promethazine 25 mg tablet mg PO 05/02/25 06/14/25 cyclobenzaprine 10 mg tablet 10 mg PO HS 06/01/25 06/14/25 diclofenac sodium 1 % topical gel topical QID PRN 06/01/25 06/14/25 empagliflozin 25 mg tablet mg PO DAILY 06/01/25 06/14/25 (Jardiance) ergocalciferol (vitamin D2) 1,250 1,250 mcg PO QWEEK 06/01/25 06/14/25 mcg (50,000 unit) capsule insulin aspart U-100 100 unit/mL 1 sliding scale dose SQ TID 06/01/25 06/14/25 (3 mL) subcutaneous pen lactulose 10 gram/15 mL oral 15 ml PO DAILY 06/01/25 06/14/25 solution oxycodone 5 mg tablet 5 mg PO Q4-6H 06/01/25 06/14/25 rifaximin 550 mg tablet (Xifaxan) 550 mg PO BID 06/01/25 06/14/25 ropinirole 1 mg tablet 1 mg PO QID 06/01/25 06/14/25 semaglutide 1 mg/dose (4 mg/3 mL) 1 mg SQ QWEEK 06/01/25 06/14/25 subcutaneous pen injector (Ozempic) simvastatin 20 mg tablet 20 mg PO DAILY 06/01/25 06/14/25 spironolactone 100 mg tablet 200 mg PO QAM 06/01/25 06/14/25 valacyclovir 1 gram tablet 500 mg PO DAILY 06/01/25 06/14/25 Previous Rx's ?Medication ?Instructions ?Recorded bumetanide 2 mg tablet 2 mg PO BID #60 tabs 06/01/25 buspirone 7.5 mg tablet 7.5 mg PO BID #180 tabs 06/01/25 desvenlafaxine succinate 50 mg 50 mg PO DAILY #90 tabs 06/01/25 tablet,extended release 24 hr ferrous sulfate 325 mg (65 mg 325 mg PO DAILY #90 tabs 06/01/25 iron) tablet (FeroSul) lansoprazole 30 mg capsule,delayed 30 mg PO DAILY #90 caps 06/01/25 release lisinopril 2.5 mg tablet 2.5 mg PO DAILY #90 tabs 06/01/25 magnesium oxide 400 mg PO BID #180 tabs 06/01/25 metoprolol succinate 50 mg 50 mg PO DAILY #90 tabs 06/01/25 tablet,extended release 24 hr pregabalin 25 mg capsule 25 mg PO BID #60 caps 06/01/25 zinc sulfate 50 mg zinc (220 mg) 50 mg PO DAILY #90 caps 06/01/25 capsule Allergies Allergy/AdvReac Type Severity Reaction Status Date / Time povidone-iodine (From Allergy Intermediate Rash Verified 06/14/25 15:15 Betadine) Sulfa (Sulfonamide Allergy Intermediate Rash,itchin Verified 06/14/25 15:15 Antibiotics) g,burning vortioxetine (From Allergy Mild Rash Verified 06/14/25 15:15 Trintellix) surgery glue Allergy Mild Rash Uncoded 05/02/25 19:17 [facility] Disclaimer: The information contained in this section may have been updated after the patient was seen, as this information can be updated by other users. Medical History (Updated 06/21/25 @ 15:53 by Ronny Chaney MD) Ascites Zinc deficiency GOOD (nonalcoholic steatohepatitis) Gastroparesis Lumbar spinal stenosis Iron deficiency Sleep apnea Lumbar radiculopathy Cervical radiculopathy Gastroesophageal reflux Thrombocytopenia CHF (congestive heart failure) Patent foramen ovale Hypertension Restless legs Anemia Diabetes mellitus type 2 in nonobese Esophageal varices Anasarca Depression Anxiety Sepsis Social History Smoking Status: Never smoker alcohol intake: never current occupational status: unemployed Travel in the last 8 weeks?: None Have you lived/traveled outside [place] in past 30 days?: No Contact w/someone who lives/traveled outside [place] past 30 days?: No Exposure to someone with infectious disease in past 14 days?: No Do you have a fever (greater than 100.4 F or 38 C)?: No Have you tested positive for COVID-19?: No Exposed to someone with COVID-19 in past 14 days?: No Do you have a sore throat?: No Do you have a cough?: No Do you have any weakness?: No Do you have any diarrhea?: No Are you experiencing any unusual bleeding?: No Do you have any muscle aches/pain?: No Do you have any abdominal pain?: No Are you experiencing loss of taste or smell?: No ROS Obtained: Yes All systems reviewed & no additional complaints except as documented Physical Exam General General appearance: alert and in no apparent distress Respiratory Respiratory exam: Present normal lung sounds bilaterally and other (Oxygen saturations at 100% on room air breathing comfortably); Absent respiratory distress Cardiovascular Cardiovascular exam: Present regular rate and normal rhythm Abdominal Exam Abdominal exam: Present soft and distention (Mildly distended but not tense there is a fluid wave) Neurological Exam Neurological exam: Present alert and oriented X3 Medical Decision Making Medical Records Screening: Per USPSTF and CDC recommendations, given the prevalence of disease in our region, it is our hospital?s policy to screen for HIV and viral Hepatitis for all patients aged 18 and over and those with ongoing risk factors. Yohan Inquiry Pt receiving controlled substance: No Vital Signs: 06/21/25 14:37 06/21/25 14:37 06/21/25 15:00 Temperature 98.1 F Temperature Source Oral Pulse Rate 93 H 94 H Pulse Rate [Right] 99 H Respiratory Rate 18 Blood Pressure 132/69 116/63 Blood Pressure [Right Arm] 132/69 Blood Pressure Mean [Right Arm] 90 Blood Pressure Source [Right Arm] Automatic Cuff Blood Pressure Position [Right Arm] Sitting 02 Sat by Pulse Oximetry 98 100 100 Oxygen Delivery Method Room Air 06/21/25 15:30 06/21/25 15:45 Temperature Temperature Source Pulse Rate 84 88 Pulse Rate [Right] Respiratory Rate Blood Pressure 107/60 L Blood Pressure [Right Arm] Blood Pressure Mean [Right Arm] Blood Pressure Source [Right Arm] Blood Pressure Position [Right Arm] 02 Sat by Pulse Oximetry 98 99 Oxygen Delivery Method Lab Data Lab results reviewed: Yes I reviewed the patient's lab results. Lab Results 06/21/25 15:00: WBC 8.7, RBC 3.22 L, Hgb 11.7 L, Hct 33.7 L, MCV 104.7 H, MCH 36.3 H, MCHC 34.7, RDW 13.4, Plt Count 95 L, MPV 10.0, Neut % (Auto) 69.7, Lymph % (Auto) 13.7, [place] % (Auto) 10.6 H, Eos % (Auto) 4.1, Baso % (Auto) 0.5, Neut # (Auto) 6.1, Lymph # (Auto) 1.2, [place] # (Auto) 0.9, Eos # (Auto) 0.4, Baso # (Auto) 0.0, PT 14.8 H, INR 1.36 H, Sodium 134 L, Potassium 4.3, Chloride 98, Carbon Dioxide 26, Anion Gap 14.3, BUN 21 H, Creatinine 1.30 H, Estimated Creat Clear 73, Estimated GFR 43 L, Est GFR ( Amer) 51 L, Glucose 195 H, Calcium 8.8, Total Bilirubin 4.8 H, AST 82 H, ALT 59, Alkaline Phosphatase 190 H, Total Protein 7.3, Albumin 3.0 L, Globulin 4.3 H, Albumin/Globulin Ratio 0.7 L 06/21/25 15:00 06/21/25 15:00 Orders (Tests/Meds): ORDERS Category Date Time Status POCUS Point of Care (ER Only) Stat Exams 06/21/25 14:37 Completed CBC w/Auto Diff [Complete Blood Count Auto Diff] Stat Lab 06/21/25 15:00 Completed CMP [Comprehensive Metabolic Panel] Stat Lab 06/21/25 15:00 Completed PT INR [Prothrombin Time INR] Stat Lab 06/21/25 15:00 Completed Medical Decision Narrative: Patient with above history and physical. Abdomen is not tense she has no new respiratory distress no emergency with regards to the need for paracentesis. I have a very low suspicion for SBP. This is new to the patient and she has not yet had conversations with her liver transplant doctors about this. I discussed with her that if we continue to do frequent paracentesis that that this will reaccumulate quickly and that she will need more frequent procedures in the near future. She is on Bumex as well as spironolactone and she has been advised to follow-up closely with her liver doctors to make sure she is maxed out on diuresis. She is not any respiratory distress. We had a risk-benefit discussion with regards to whether or not to do the paracentesis today and she is currently thinking about it. At the moment she is leaning away from doing the paracentesis and following up closely with her liver transplant team. 1 the main reason she came to [place] today is because there is bad weather and she wanted to make sure that she did not have to travel to [place] if there was the need. On reassessment 3:53 PM patient remained stable and her MELD NA score is 20 which is lower than it was in the past. Nothing significantly abnormal as discussed above she has moderate ascites and she opted eventually to not proceed with a paracentesis today. I have advised her that we are here 01/02 if she changes her mind otherwise she needs to follow-up closely and communicate with her liver testing coordinator which she agreed to do. There has been some inconsistency with communication from the testing coordinator standpoint and I advised her that if she is having a hard time or would like for us to advocate on her behalf that she can return to the emergency department and we will call through [facility] or the transfer center and have discussions with them regarding closer follow-up. Patient and friend at the bedside all are in agreement with this plan. Patient was discharged in stable condition. Procedures Miscellaneous Procedure Procedure Performed: Limited abdominal ultrasound Indication evaluation for fluid pockets for ascites Findings moderate ascites but bowels close to abdominal wall Critical Care Critical Care Time Critical Care Time: No
[2025-06-21 15:00] VITALS: BP 116/63; PULSE 94; O2SAT 100
[2025-06-21 15:10] LABS: Hematocrit 33.7 % (37.0-47.0); Hemoglobin 11.7 g/dL (12.2-16.2); Immature Granulocytes % 1.4 %; Mean Corpuscular HGB Conc 34.7 g/dL (31.8-35.4); Mean Corpuscular Hemoglobin 36.3 pg (27.0-31.2); Mean Corpuscular Volume 104.7 fl (81-99); Nucleated Red Blood Cells % 0 %; Platelet Count 95 K/mm3 (142-424); Red Blood Count 3.22 M/mm3 (4.20-5.40); Red Cell Distribution Width-SD 52.8 fL; White Blood Count 8.7 K/mm3 (4.8-10.8)
[2025-06-21 15:18] LABS: Albumin Level 3.0 g/dl (3.5-5.0); Chloride 98 mmol/L (98-107); Potassium 4.3 mmoL/L (3.5-5.1); Sodium 134 mmol/L (136-145)
[2025-06-21 15:19] LABS: INR 1.36 (0.9-1.1); Prothrombin Time 14.8 seconds (10.1-12.5)
[2025-06-21 15:21] LABS: Alanine Aminotransferase 59 U/L (12-78); Albumin/Globulin Ratio 0.7 (1.1-1.8); Alkaline Phosphatase 190 U/L (38-126); Anion Gap 14.3 mEq/L (5-15); Aspartate Amino Transferase 82 U/L (14-36); Bilirubin,Total 4.8 mg/dl (0.2-1.3); Blood Urea Nitrogen 21 mg/dl (7-17); Calcium 8.8 mg/dl (8.4-10.2); Carbon Dioxide 26 mmol/L (22.0-30.0); Creatinine Clearance Estimated 73 mL/min (50-200); Creatinine,Serum 1.30 mg/dl (0.52-1.04); Estimated Glomerular Filt Rate 43 ml/min (>60); GFR (African American) 51 ML/MIN (>60); Globulin 4.3 g/dL (1.3-3.2); Glucose 195 mg/dl (74-100); Total Protein,Serum 7.3 g/dl (6.3-8.2)
[2025-06-21 15:30] VITALS: BP 107/60; PULSE 84; O2SAT 98
[2025-06-21 15:45] VITALS: PULSE 88; O2SAT 99
[2025-06-21 16:07] VITALS: BP 101/61; PULSE 88; RESP 18; TEMP 36.8; O2SAT 98
== END 2025-06-21 16:07 | disposition home or self-care (01) ==
PROVIDERS: Emergency Provider Student in an Organized Health Care Education/Training Program; PCP Family Medicine
DX: K72.90 Hepatic failure, unspecified without coma (principal); R18.8 Other ascites; K75.81 Nonalcoholic steatohepatitis (NASH)
CPT/HCPCS: 80053; 85025; 85610; 99284; 99285

== ENCOUNTER 2025-07-07 18:32 | Emergency (ER) | payer OTHER, SELFPAY ==
--- OUTSIDE RECORDS SUMMARY | 2025-03-08 07:00 | XMS_ITS | Encounter Summary ---
Author Organization [facility] Address [address] 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 Role Phone Trevor Rolon DO Primary Care Provider [phone] [place] Grant Unavailable [phone] El Agarwal APRN Unavailable [phone] Reason for Referral * Consultation (Routine) - Closed Specialty Diagnoses / Procedures Referred By Truong bella Referred To Contact Neurosurgery Diagnoses Lumbosacral radiculopathy Claire Davidson MD [address] [address] Phone: tel: fax: Referral ID Status Reason Start Date Expiration Date V isits Requested Visits Authorized [id number] Closed Specialty Services Required 03/08/2025 09/07/2026 1 1 * Imaging (Routine) - Closed Specialty Diagnoses / Procedures Referred By Truong bella Referred To Contact Radiology Diagnoses Lumbosacral radiculopathy Procedures MR Cervical Spine wo IV Contrast Claire Davidson MD [address] [address] Phone: tel: fax: Referral ID Status Reason Start Date Expiration Date Visits Re quested Visits Authorized [id number] Closed 03/08/2025 09/07/2026 1 1 * Other Medical (Routine) - Authorized Specialty Diagnoses / Procedures Referred By Truong bella Referred To Contact Neurology Diagnoses Lumbosacral radiculopathy Procedures EMG / Nerve Conduction Study Claire Davidson MD [address] [address] Phone: tel: fax: Referral ID Status Reason Start Date Expiration Date Visits Requested Visits Authorized [id number] Authorized Specialty Services Required 03/08/2025 09/07/2026 1 1 Reason for Visit * Reason Comments Consult * Consultation (Routine) - Closed Specialty Diagnoses / Procedures Referred By Truong bella Referred To Contact Neurology Diagnoses Neuropathic pain, [place], [place] [address] fax: Referral ID Status Reason Start Date Expiration Date V isits Requested Visits Authorized [id number] Closed Specialty Services Required 03/04/2025 09/03/2026 1 1 Encounter Details Date Type Department Care Team ([facility] st Contact Info) Description 03/08/2025 8:00 AM EDT Consult [facility] [address] [facility] [address], [address] [place] [address] Claire Davidson MD [address] [address] Lumbosacral radiculopathy (Primary Dx) Social History Tobacco Use Types Packs/Day Years Used Date Smoking Tobacco: Former Cigarettes 0.1 10.6 2 012 - 02/2022 Passive Smoke Exposure: Past Smokeless Tobacco: Never Tobacco Cessation:Counseling Given: Not Answered Alcohol Use Standard Drinks/Week Comments Not Currently 0 (1 standard drink = 0.6 oz pur e alcohol) not drinking since 2018 PHQ-2 Answer Date Recorded Patient Health Questionnaire-2 Score 0 05/18/2025 PHQ-9 Answer Date Recorded Patient Health Questionnaire-9 Score 18 04/03/2025 Comments Unknown Sex and Gender Information Value Date Recorded Sex Assigned at Female 03/11/2021 7:37 PM EDT Legal Sex Female 8:49 PM EDT Gender Identity Female 03/11/2021 7:37 PM EDT Sexual Orientation Not on file documented as of this encounter Last Filed Vital Signs Vital Sign Reading Time Taken Comments Blood Pressure 90/61 03/08/2025 8:19 AM EDT Pulse 82 03/08/2025 8:19 AM EDT Temperature - - Respiratory Rate - - Oxygen Saturation - - Inhaled Oxygen Concentration - - Weight 75.9 kg (167 lb 5.3 oz) 03/08/2025 8:19 A M EDT Height 170.2 cm (5' 7 ) 03/08/2025 8:19 AM EDT Body Mass Index 26.21 03/08/2025 8:19 AM EDT documented in this encounter Functional Status * BP Answer Date of Assessment Author 90/61 03/08/2025 8:19 AM EDT Sommer Rangel * Pulse Answer Date of Assessment Author 82 03/08/2025 8:19 AM DAINAT Sommer Rangel * Height Answer Date of Assessment Author 67 03/08/2025 8:19 AM EDT Sommer Rangel * Weight Answer Date of Assessment Author 2677.27 03/08/2025 8:19 AM DAINAT Sommer Rangel * BMI (Calculated) Answer Date of Assessment Author 26.3 03/08/2025 8:19 AM EDSommer Wellington * Percent Excess Weight Loss Answer Date of Assessment Author 0 03/08/2025 8:19 AM Sommer Cantu * Total Weight Change Percent Answer Date of Assessment Author 2222 03/08/2025 8:19 AM Sommer Cantu * Weight Change Since Preop Answer Date of Assessment Author 75.88 03/08/2025 8:19 AM EDSommer Wellington * Initial Excess Weight Answer Date of Assessment Author -61.24 03/08/2025 8:19 AM EDSommer Wellington * IBW in lbs (Bariatric) Answer Date of Assessment Author 135 03/08/2025 8:19 AM Sommer Cantu * Weight Change Since Last Visit Answer Date of Assessment Author 75.88 03/08/2025 8:19 AM Sommer Cantu * IBW in kg (Bariatric) Answer Date of Assessment Author 61.24 03/08/2025 8:19 AM Sommer Cantu * Percent of IBW Answer Date of Assessment Author 4,371.77 03/08/2025 8:19 AM EDSommer Wellington * EBW (kg) Answer Date of Assessment Author 2,675.53 03/08/2025 8:19 AM Sommer Cantu * EBW (lbs) Answer Date of Assessment Author 2,668.83 03/08/2025 8:19 AM Sommer Arciniega * Weight Change 24 hrs Answer Date of Assessment Author -6.1 03/08/2025 8:19 AM Sommer Cantu * Depression Screening Question Answer Date of Assessment Author Will the patient answer the depression risk questions? Yes 03/08/2025 8:18 AM Sommer Cantu * BSA (Calculated - sq m) Answer Date of Assessment Author 1.89 03/08/2025 8:19 AM Sommer Cantu * BMI (Calculated) Answer Date of Assessment Author 26.2 03/08/2025 8:19 AM Sommer Cantu * IBW/kg (Calculated) Male Answer Date of Assessment Author 66.1 03/08/2025 8:19 AM Sommer Cantu * IBW/kg (Calculated) Female Answer Date of Assessment Author 61.6 03/08/2025 8:19 AM Sommer Cantu * IBW/kg (Calculated) Answer Date of Assessment Author 61.6 03/08/2025 8:19 AM Sommer Cantu * Over the past 2 weeks, how often have you been bothered by any of the following problems? Question Answer Date of Assessment Author Little interest or pleasure in doing things Not at all 03/08/2025 8:18 AM EDT Rangel, Sommer Feeling down, depressed, or hopeless Not at all 03/08/2025 8:18 AM Sommer Cantu Patient Health Questionnaire -2 Score 0 03/08/2025 8:18 AM Sommer Cantu * Weight in (lb) to have BMI = 25 Answer Date of Assessment Author 159.3 03/08/2025 8:19 AM Sommer Cantu * BMI (Calculated) Answer Date of Assessment Author 26.3 03/08/2025 8:19 AM Sommer Cantu * Percent Excess Weight Loss Answer Date of Assessment Author 0 03/08/2025 8:19 AM Sommer Cantu * Weight Change Since Preop Answer Date of Assessment Author 75.9 03/08/2025 8:19 AM Sommer Cantu * Initial Excess Weight Answer Date of Assessment Author -61.24 03/08/2025 8:19 AM Sommer Cantu * IBW in kg (Bariatric) Answer Date of Assessment Author 61.24 03/08/2025 8:19 AM Sommer Cantu * IBW in lb (Bariatric) Answer Date of Assessment Author 135 03/08/2025 8:19 AM Sommer Cantu * Weight Change Since Last Visit Answer Date of Assessment Author 75.9 03/08/2025 8:19 AM Sommer Cantu * Percent of IBW Answer Date of Assessment Author 123.95 03/08/2025 8:19 AM Sommer Cantu * EBW (kg) Answer Date of Assessment Author 14.64 03/08/2025 8:19 AM Sommer Cantu * EBW (lb) Answer Date of Assessment Author 32.33 03/08/2025 8:19 AM Sommer Cantu * Difference in Weight Since Last Visit Answer Date of Assessment Author -6.1 03/08/2025 8:19 AM Sommer Cantu * IBW/kg (Calculated) Answer Date of Assessment Author 61.6 03/08/2025 8:19 AM Sommer Cantu * Adult Low Range Vt 6mL/kg Answer Date of Assessment Author 369.6 03/08/2025 8:19 AM Sommer Cantu * Adult Moderate Range Vt 8mL/kg Answer Date of Assessment Author 492.8 03/08/2025 8:19 AM Sommer Cantu * Adult High Range Vt 10mL/kg Answer Date of Assessment Author 616 03/08/2025 8:19 AM Sommer Cantu * Pain Score Answer Date of Assessment Author 4 03/08/2025 8:10 AM Sommer Cantu * Pain Screening/Additional Assessments Question Answer Date of Assessment Author Pain Screening/Assessments Pain Screening 03/08/2025 8 :10 AM Sommer Cantu * Pain Screening Answer Date of Assessment Author 0-10 03/08/2025 8:10 AM Sommer Cantu * BP Answer Date of Assessment Author 90/61 03/08/2025 8:19 AM Sommer Cantu * Pulse Answer Date of Assessment Author 82 03/08/2025 8:19 AM Sommer Cantu * Height Answer Date of Assessment Author 67 03/08/2025 8:19 AM Sommer Cantu * Weight Answer Date of Assessment Author 2677.27 03/08/2025 8:19 AM Sommer Cantu * BSA (Calculated - sq m) Answer Date of Assessment Author 1.89 03/08/2025 8:19 AM Sommer Arciniega * BMI (Calculated) Answer Date of Assessment Author 26.2 03/08/2025 8:19 AM Sommer Cantu * Over the past 2 weeks, how often have you been bothered by any of the following problems? Question Answer Date of Assessment Author Little interest or pleasure in doing things Not at all 03/08/2025 8:18 AM Sommer Cantu Feeling down, depressed, or hopeless Not at all 03/08/2025 8:18 AM Sommer Cantu Patient Health Questionnaire -2 Score 0 03/08/2025 8:18 AM Sommer Cantu * Weight in (lb) to have BMI = 25 Answer Date of Assessment Author 159.3 03/08/2025 8:19 AM Sommer Cantu * Pain Score Answer Date of Assessment Author 4 03/08/2025 8:10 AM EDT Sommer Rangel documented as of this encounter Mental Status * BP Answer Entry Date Author 90/61 03/08/2025 8:19 AM EDT Sommer Rangel * Pulse Answer Entry Date Author 82 03/08/2025 8:19 AM EDT Sommer Rangel * Height Answer Entry Date Author 67 03/08/2025 8:19 AM EDT Sommer Rangel * Weight Answer Entry Date Author 7.27 03/08/2025 8:19 AM EDT Sommer Rangel * BMI (Calculated) Answer Entry Date Author 26.3 03/08/2025 8:19 AM EDT Sommer Rangel * Percent Excess Weight Loss Answer Entry Date Author 0 03/08/2025 8:19 AM EDT Sommer Rangel * Total Weight Change Percent Answer Entry Date Author 222103/08/2025 8:19 AM EDT Sommer Rangel * Weight Change Since Preop Answer Entry Date Author 75.88 03/08/2025 8:19 AM EDT Sommer Rangel * Initial Excess Weight Answer Entry Date Author -61.24 03/08/2025 8:19 AM EDT Sommer Rangel * IBW in lbs (Bariatric) Answer Entry Date Author 135 03/08/2025 8:19 AM EDT Sommer Rangel * Weight Change Since Last Visit Answer Entry Date Author 75.88 03/08/2025 8:19 AM EDT Sommer Rangel * IBW in kg (Bariatric) Answer Entry Date Author 61.24 03/08/2025 8:19 AM EDT Sommer Rangel * Percent of IBW Answer Entry Date Author 4,371.77 03/08/2025 8:19 AM EDT Sommer Rangel * EBW (kg) Answer Entry Date Author 2,675.53 03/08/2025 8:19 AM EDSommer Wellington * EBW (lbs) Answer Entry Date Author 2,668.83 03/08/2025 8:19 AM EDT Sommer Rangel * Weight Change 24 hrs Answer Entry Date Author -6.1 03/08/2025 8:19 AM Sommer Cantu * Depression Screening Question Answer Entry Date Author Will the patient answer the depression risk questions? Yes 03/08/2025 8:18 AM Sommer Cantu * BSA (Calculated - sq m) Answer Entry Date Author 1.89 03/08/2025 8:19 AM Sommer Cantu * BMI (Calculated) Answer Entry Date Author 26.2 03/08/2025 8:19 AM Sommer Cantu * IBW/kg (Calculated) Male Answer Entry Date Author 66.1 03/08/2025 8:19 AM Sommer Cantu * IBW/kg (Calculated) Female Answer Entry Date Author 61.6 03/08/2025 8:19 AM Sommer Cantu * IBW/kg (Calculated) Answer Entry Date Author 61.6 03/08/2025 8:19 AM Sommer Arciniega * Over the past 2 weeks, how often have you been bothered by any of the following problems? Question Answer Entry Date Author Little interest or pleasure in doing things Not at all 03/08/2025 8:18 AM Sommer Cantu Feeling down, depressed, or hopeless Not at all 03/08/2025 8:18 AM Sommer Cantu Patient Health Questionnaire -2 Score 0 03/08/2025 8:18 AM Sommer Cantu * [facility] Mental Health Concern Calculation Answer Entry Date Author 3 03/08/2025 8:18 AM Sommer Cantu * Restart Pain Assessment Timer Answer Entry Date Author Yes 03/08/2025 8:10 AM Sommer Cantu * Weight in (lb) to have BMI = 25 Answer Entry Date Author 159.3 03/08/2025 8:19 AM Sommer Cantu * BMI (Calculated) Answer Entry Date Author 26.3 03/08/2025 8:19 AM Sommer Cantu * Percent Excess Weight Loss Answer Entry Date Author 0 03/08/2025 8:19 AM Sommer Cantu * Weight Change Since Preop Answer Entry Date Author 75.9 03/08/2025 8:19 AM Sommer Canut * Initial Excess Weight Answer Entry Date Author -61.24 03/08/2025 8:19 AM EDT Sommer Rangel * IBW in kg (Bariatric) Answer Entry Date Author 61.24 03/08/2025 8:19 AM EDT Sommer Rangel * IBW in lb (Bariatric) Answer Entry Date Author 135 03/08/2025 8:19 AM EDT Sommer Rangel * Weight Change Since Last Visit Answer Entry Date Author 75.9 03/08/2025 8:19 AM EDT Sommer Rangel * Percent of IBW Answer Entry Date Author 123.95 03/08/2025 8:19 AM EDT Sommer Rangel * EBW (kg) Answer Entry Date Author 14.64 03/08/2025 8:19 AM EDT Sommer Rangel * EBW (lb) Answer Entry Date Author 32.33 03/08/2025 8:19 AM EDT Sommer Rangel * Difference in Weight Since Last Visit Answer Entry Date Author -6.1 03/08/2025 8:19 AM EDT Sommer Rangel * IBW/kg (Calculated) Answer Entry Date Author 61.6 03/08/2025 8:19 AM EDT Sommer Rangel * Adult Low Range Vt 6mL/kg Answer Entry Date Author 369.6 03/08/2025 8:19 AM EDT Sommer Rangel * Adult Moderate Range Vt 8mL/kg Answer Entry Date Author 492.8 03/08/2025 8:19 AM EDT Sommer Rangel * Adult High Range Vt 10mL/kg Answer Entry Date Author 616 03/08/2025 8:19 AM EDT Sommer Rangel * Pain Score Answer Entry Date Author 4 03/08/2025 8:10 AM EDT Sommer Rangel * Pain Screening Answer Entry Date Author 0-10 03/08/2025 8:10 AM EDT Sommer Rangel documented in this encounter Miscellaneous Notes * Progress Notes - Claire Daivdson MD - 03/08/2025 8:00 AM EDT I saw Trudy Peña as a new patient at the [facility] on 03/08/2025 in consultation for concern for neuropathy. Referring provider: Laquita Corral PA [address] [place] [address] HPI: Mr/Ms Trudy Peña is a 54 y.o. year old right handed female with a history of T2DM, GOOD cirrhosis, psoriatic arthritis, history of leukocytoclastic vasculitis, history of L5-S1 laminectomy presenting for evaluation of neuropathy. Symptoms since 2009, and worse in the past 2 years. Complaints of numbness in both feet (left>right), feels like it's in hot water , and that she is tripping over her left foot. Reports couple offalls due to this. Reports cramps or spasms in bilateral lower extremities. Used an assistive device for a couple of days, not currently. Able to go up the steps with difficulty due to imbalance and w eakness. Driving - no issues. One episode of urinary incontinence. 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 Endorses radicular low back pain. Reports radicular cervical neck pain, going on for about 2 years.Denies ocular bulbar symptoms, denies respiratory weakness. Symptoms referable to autonomic dysfunction: dry eyes, dry mouth, impaired sweating, cold intolerance, denies gastroparetic early satiety, postprandial abdominal bloating, constipation. History of alcohol use: not currently, previously 1 drink once a month New rash or joint pain: no Weight loss: no Chills/night sweats: ROS: Pertinent positive and negative systems reviewed in HPI. Past Medical History: Past Medical History[1] Past Surgical History: Surgical History[2] Social History: Address: [address] [place], [place] [id number] Medications: Current Medications[3] Allergies: Allergies[4] Exam: There were no vitals filed for this visit. Gen: Appears stated age, no acute distress. Neuro: Mental status: Awake, alert, oriented to detailed history taking. Cranial nerves: Ocular smooth pursuits full and smooth. Face symmetric with rest and activation. Facial strength with eye closure, cheek puffing, tongue to cheek full. Facial sensation to light touchintact. No dysarthria. Head flexion full strength. Motor: Muscle bulk and tone normal. Movement Neck flexion 5/5 Neck extension 5/5 Right Left Shoulder abduction 5/5 5/5 Shoulder ext rotation 5/5 5 Elbow flexion 11/13 5/5 Elbow extension / 5/ Wrist extension 11/13 5/ Wrist flexion / 5/5 Finger abduction - FDI 11/13 5/5 Finger abduction - ADM / 5/5 Finger extension / 5/5 Deep Finger Flexion / 5/5 Thumb abduction (APB) 11/13 5/ Hip flexion 11/13 5/ Knee extension 11/13 5/ Knee flexion 11/13 4+/5 Dorsiflexion 11/13 4+/5 Plantarflexion 11/13 4/5 Ankle eversion 11/13/5 Ankle inversion 11/13/ Reflexes: Right Left Bicep 2/4 2/4 Tricep 2/4 2/4 Brachioradialis 2/4 2/4 Patella 3/4 3/4 Ankle 2/4 0/4 Negative Drummond bilaterally, crossed adductor on left. Sensation: Pin prick: reduced in both feet, up to proximal hagen (about 50%), intact in the upper extremities Vibration: (R/L) great toes 15s/15s, ankles 15s/15s Proprioception: intact to excursions at great toes Temperature: reduced in the feet, improves Coordination: No evidence of ataxia with heel knee hagen or finger nose finger Gait:Normal base and stance. Stride length, heel strike, and turns normal. Difficulty with toe walking and heel walking in the left. Labs: The following were negative or normal: HbA1c 5.1, vitamin B12, JEANNIE, ALISHA panel, vitamin B1, B6. The following were abnormal: serum copper 76 Imaging/Other studies: Following available imaging and imaging reports personally reviewed and significant for the following: MRI lumbar spine with and without impression 03/05/2025: Degenerative changes with canal and foraminal stenoses most significant at L4/5. Findings mildly progressed since 2022 MRI. Assessment: 54 y.o. year old right handed female with a history of T2DM, GOOD cirrhosis, psoriatic arthritis, history of leukocytoclastic vasculitis, history of L5-S1 laminectomy presenting for gait disturbance,left lower extremity weakness, bilateral feet numbness (left more than right) with concern for neuropathy. Neurological exam with weakness on left knee flexion, left ankle dorsiflexion and plantar flexion and ankle inversion and eversion weakness. Absent left ankle jerk. Sensory exam with reduced pinprick in both feet, otherwise intact vibration proprioception, Romberg's. Tandem gait is intact. Unable to toe and heel walk on the left. History and presentation appears supportive of a left lumbosacral radiculopathy, with a component of small-fiber peripheral neuropathy however given intact vibration and proprioception bilaterally this would not explain worsening gait issues and falls. Will obtain EMG, MRI cervical spine given positive Drummond's and radicular symptoms, and refer to Neurosurgery. Plan: Orders Placed This Encounter Procedures MR Cervical Spine wo IV Contrast Copper, Serum or Plasma Ambulatory referral to Neurosurgery EMG / Nerve Conduction Study RTC 2 months. Claire Davidson MD Processing Supervisor, Department of Neurology Neuromuscular Medicine Program Counseling Documentation: The patient was counseled regarding instructions for management. Education provided was verbal counseling. Additional time was spent in care coordination including medical record review. The total time of encounter was 71 minutes and greater than 50% of the visit was spent in counseling/coordination of care. [1] Past Medical History: Diagnosis Date Anemia Anisocoria Arthritis Cataract CHF (congestive heart failure) (CMS/HCC) Diabetes mellitus (CMS/HCC) 2019 History of transfusion Hypertension 2017 Iritis Iritis Migraine Osteomyelitis of vertebra, site unspecified (CMS/HCC) Spinal abscess Personal history of other diseases of the female genital tract History of ovarian cyst Unspecified cirrhosis of liver (CMS/HCC) Non-alcoholic cirrhosis [2] Past Surgical History: Procedure Laterality Date APPENDECTOMY BACK SURGERY N/A 1994 BACK SURGERY 2009 BREAST SURGERY N/A Breast Surgery Reduction Procedure Bilateral from [facility] EXPLORATORY LAPAROTOMY GALLBLADDER SURGERY 2018 GANGLION CYST EXCISION, WRIST Left INCISION AND DRAINAGE, ABCESS 2009 from back LIVER BIOPSY OTHER SURGICAL HISTORY N/A Exploratory Laparotomy from [facility] OVARIAN CYST DRAINAGE N/A Aspiration Of Ovarian Cyst from [facility] TOTAL ABDOMINAL HYSTERECTOMY N/A 2011 Hysterectomy from [facility] [3] Current Outpatient Medications Medication Sig Dispense Refill bumetanide (Bumex) 1 MG tablet Take 2 tablets (2 mg) by mouth 1 (one) time each day in the morning. busPIRone (Buspar) 7.5 MG tablet take 1 tablet by mouth two times a day as needed for anxiety desvenlafaxine (Pristiq) 50 MG 24 hr tablet Take 1 tablet by mouth 1 (one) time each day. diclofenac (Voltaren) 1 % topical gel apply 2 grams TO affected area FOUR TIMES DAILY ergocalciferol (Vitamin D-2) 1.25 MG (05931 UT) capsule Take 1 capsule (50,000 Units) by mouth. Take only on Tuesdays FeroSul 325 (65 Fe) MG tablet Take 1 tablet (325 mg) by mouth 1 (one) time each day. hydrOXYzine HCl (Atarax) 25 MG tablet Take 1 tablet (25 mg) by mouth every night. hydrOXYzine pamoate (Vistaril) 25 MG capsule TAKE 1 Capsule BY MOUTH THREE TIMES A DAY NEEDED FOR ITCHING insulin glargine (Lantus SoloStar) 100 UNIT/ML injection pen Inject 25 Units under the skin 1 (one)time each day in the morning. Jardiance 25 MG Take 1 tablet (25 mg) by mouth 1 (one) time each day. lansoprazole (Prevacid) [address] capsule Take 1 capsule (30 mg) by mouth 1 (one) time each day. lisinopril 2.5 MG tablet Take 1 tablet by mouth daily. metoprolol succinate XL (Toprol-XL) 100 MG 24 hr tablet Take 2 tablets (200 mg) by mouth 1 (one) time each day. NovoLOG FLEXPEN 100 UNIT/ML injection pen Take 5 units at breakfast, lunch, and supper if premeal BS >150. Max daily dose 50 units ondansetron (Zofran) 4 MG tablet Take 1 tablet by mouth every 8 hours as needed. Ozempic, 1 MG/DOSE, 4 MG/3ML solution pen-injector INJECT 1 MG SUBCUTANEOUSLY ONCE A WEEK ON THE SAME DAY EACH WEEK IN THE THIGH, ABDOMEN OR UPPER ARM ROTATING INJECTION SITES potassium chloride CR (Klor-Con M20) 20 MEQ ER tablet Take 1 tablet (20 mEq) by mouth 2 (two) timesa day. promethazine (Phenergan) 25 MG tablet TAKE 1 Tablet BY MOUTH THREE TIMES A DAY NEEDED FOR NAUSEAAND VOMITING rifAXIMin (Xifaxan) 550 MG tablet Take 1 tablet (550 mg) by mouth 2 (two) times a day. Rimegepant Sulfate (Nurtec) 75 MG tablet dispersible Take 1 tab PO at the onset of a migraine. Do not exceed more than 1 tab in 24 hours. rOPINIRole (Requip) 1 MG tablet Take 1 tablet (1 mg) by mouth 4 (four) times a day. simvastatin (Zocor) 20 MG tablet Take 1 tablet (20 mg) by mouth 1 (one) time each day. spironolactone (Aldactone) 100 MG tablet TAKE ONE TABLET BY MOUTH ONCE DAILY FOR FLUID No current facility-administered medications for this visit. [4] Allergies Allergen Reactions Iodine Itching and Rash Oxycodone-Acetaminophen Hallucinations Povidone Iodine Hives, Itching and Rash Sulfa Drugs Itching and Rash Sulfacetamide Hives Vortioxetine Hives and Rash Wound Dressing Adhesive Other - please document in the comment field documented in this encounter Plan of Treatment Upcoming Encounters Date Type Department Care Team (Late st Contact Info) Description 07/17/2025 8:45 AM EST Clinical Support [facility] [address] [facility] [address] [place] [address] 07/17/2025 10:30 AM EST Office Visit [facility] [place] [address] [place] [address] Nj Johns MD [address] [facility] [address] [place] [address] Scheduled Orders Name Type Priority Associated Diagnoses Orde r Schedule EMG / Nerve Conduction Study Neurology Routine Lumbosacral radiculopathy 1 Occurrences starting 03/08/2025 until 09/09/2026 Copper, Serum or Plasma Lab Routine Lumbosacral radiculopathy Expected: 03/08/2025 (Approximate), Expires: 09/09/2026 Scheduled Referrals Name Type Priority Associated Diagnoses Orde r Schedule Ambulatory referral to Neurosurgery Outpatient Referral Routine Lumbosacral radiculopathy 1 Occurrences starting 03/08/2025 until 09/09/2026 documented as of this encounter Results * MR Cervical Spine wo IV Contrast (05/14/2025 1:38 PM EST) Anatomical Region Laterality Modality C-spine Magnetic Resonan ce Impressions 05/14/2025 3:06 PM EST 1. Multilevel degenerative disc disease extending into upper thoracic spine, and areas of disc protrusion with ventral cord indentation. 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 CRITICAL RESULT: No. COMMUNICATION: Per this written report. Drafted by Leo Henriquez on 05/14/2025 2:50 PM Final report signed by Leo Henriquez on 05/14/2025 3:06 PM Narrative 05/14/2025 3:06 PM EST CLINICAL INDICATION: Myelopathy, chronic, cervical spine TECHNIQUE: Multiplanar multiecho sequences were obtained through the cervical spine utilizing T1 and T2 without the administration of intravenous contrast. 7 series were obtained including localizer series. COMPARISON: None. FINDINGS: Diagnostic Quality: Adequate. Alignment: The bony alignment is normal. Marrow: The marrow signal is normal. Vertebrae and Intervertebral Discs: Vertebral body heights are normal. Schmorl's nodes affect the endplates of C6 superiorly and inferiorly and superior endplate of C7 anteriorly. Ligaments: The anterior and posterior longitudinal ligaments and interspinous ligaments are intact. Spinal Cord: The spinal cord is of normal caliber without abnormal intrinsic signal. Significant findings by level: C2-3: Normal. C3-4: Relatively well maintained disc. A left-sided disc osteophyte impinges somewhat on the left C4 nerve root on axial image 14/5. The foramina are patent. C4-5: Degenerative disc with spondylitic bar impinging ventrally on the cord with slight indentation and giving rise to central stenosis of 7 mm on image 8/2. The foramina are patent. C5-6: Degenerative disc with large left paracentral contained but extruded disc that extends posteriorly 5 mm on axial image 22/5, markedly compressing the ventral cord on the left although not causing midline central stenosis. There is a hint of secondary compressive myelopathy on parasagittal STIR image 9/3. Additionally, and outer annular tear as seen with arrows on sagittal 9/2 is a likely cause of discogenic pain, and the outer annular high signal is also seen on the axial images. The foramina are patent. C6-7: Degenerative disc disease with broad-based posterior disc protrusion particularly prominent at the uncovertebral joints right greater than left which causes ventral lateral cord flattening bilaterally as seen on axial image 25/5. Central canal stenosis of 8 mm. Foramina are patent. C7-T1: Central disc protrusion with subligamentous extension on the right as seen on parasagittal image 6/2 causing minor ventral cord indentation. Prevertebral and Paraspinal Soft Tissues: There is no prevertebral or paraspinal soft tissue swelling or mass. Upper Thoracic Spine: T1-2: Right paracentral disc protrusion with right cord flattening as on axial image 34/5 but without apparent myelomalacia. T1-2: Minor inferior subligamentous disc extrusion as on sagittal 8/2 without secondary significant cord compression Other Findings: None. Procedure Note Leo Henriquez MD - 05/14/2025 CLINICAL INDICATION: Myelopathy, chronic, cervical spine TECHNIQUE: Multiplanar multiecho sequences were obtained through the cervical spineutilizing T1 and T2 without the administration of intravenous contrast. 7series were obtained including localizer series. COMPARISON: None. FINDINGS: Diagnostic Quality: Adequate. Alignment: The bony alignment is normal. Marrow: The marrow signal is normal. Vertebrae and Intervertebral Discs: Vertebral body heights are normal.Schmorl's nodes affect the endplates of C6 superiorly and inferiorly andsuperior endplate of C7 anteriorly. Ligaments: The anterior and posterior longitudinal ligaments andinterspinous ligaments are intact. Spinal Cord: The spinal cord is of normal caliber without abnormalintrinsic signal. Significant findings by level: C2-3: Normal. C3-4: Relatively well maintained disc. A left-sided disc osteophyteimpinges somewhat on the left C4 nerve root on axial image 14/5. Theforamina are patent. C4-5: Degenerative disc with spondylitic bar impinging ventrally on thecord with slight indentation and giving rise to central stenosis of 7 mmon image 8/2. The foramina are patent. C5-6: Degenerative disc with large left paracentral contained but extrudeddisc that extends posteriorly 5 mm on axial image 22/5, markedlycompressing the ventral cord on the left although not causing midlinecentral stenosis. There is a hint of secondary compressive myelopathy onparasagittal STIR image 9/3. Additionally, and outer annular tear as seenwith arrows on sagittal 9/2 is a likely cause of discogenic pain, and theouter annular high signal is also seen on the axial images. The foraminaare patent. C6-7: Degenerative disc disease with broad-based posterior disc protrusionparticularly prominent at the uncovertebral joints right greater than leftwhich causes ventral lateral cord flattening bilaterally as seen on axialimage 25/5. Central canal stenosis of 8 mm. Foramina are patent. C7-T1: Central disc protrusion with subligamentous extension on the rightas seen on parasagittal image 6/2 causing minor ventral cordindentation. Prevertebral and Paraspinal Soft Tissues: There is no prevertebral orparaspinal soft tissue swelling or mass. Upper Thoracic Spine: T1-2: Right paracentral disc protrusion with right cord flattening as onaxial image 34/5 but without apparent myelomalacia. T1-2: Minor inferior subligamentous disc extrusion as on sagittal 8/2without secondary significant cord compression Other Findings: None. IMPRESSION: 1. Multilevel degenerative disc disease extending into upper thoracicspine, and areas of disc protrusion with ventral cord indentation. Themost significant appears to be a large left-sided herniation at C5-6markedly compressing the left ventral cord and perhaps with associatedmyelomalacia. CRITICAL RESULT: No. COMMUNICATION: Per this written report. Drafted by Leo Henriquez on 05/14/2025 2:50 PM Final report signed by Leo Henriquez on 05/14/2025 3:06 PM Claire Davidson MD IMG MRI PROCEDURES Final Result documented in this encounter Visit Diagnoses Diagnosis Lumbosacral radiculopathy- Primary Thoracic or lumbosacral neuritis or radiculitis, unspecified Lumbosacral radiculopathy Thoracic or lumbosacral neuritis or radiculitis, unspecified documented in this encounter Additional Health Concerns Assessment Noted Time PHQ-9 Depression Total Score: 12 024 7:48 AM EDT A fall risk assessment has been complete d for the patient 03/08/2025 8:18 AM EDT A Body Mass Index follow-up plan has been documented for the patient 03/08/2025 9:29 AM EDT documented as of this encounter Care Teams Mechanical Piping Designer Relationship Specialty Start Date End Date Trevor Rolon DO [address] [facility] [address] [place] [address] PCP - General 11/22/20 06/03/25 Mc Grant [address] [facility] [address] [place] [address] Referring Physician Gastroenterology 02/21/24 El Agarwal APRN [id number] Referring Physician Gastroenterology 03/21/25 documented as of this encounter
--- OUTSIDE RECORDS SUMMARY | 2025-05-14 13:04 | XMS_ITS | Encounter Summary ---
Author Organization [facility] Address [address] [place] [address] Care Team Providers Care Restaurant Assistant Name Role Phone Trevor Rolon DO Primary Care Provider [phone] Mc Grant Unavailable [phone] El Agarwal APRN Unavailable [phone] Reason for Referral * Imaging (Routine) - Closed Specialty Diagnoses / Procedures Referred By Truong bella Referred To Contact Radiology Diagnoses Lumbosacral radiculopathy Procedures MR Cervical Spine wo IV Contrast Claire Davidson MD [address] [address] Phone: tel: fax: Referral ID Status Reason Start Date Expiration Date Visits Re quested Visits Authorized [id number] Closed 03/08/2025 09/07/2026 1 1 Reason for Visit * Imaging (Routine) - Closed Specialty Diagnoses / Procedures Referred By Truong bella Referred To Contact Radiology Diagnoses Lumbosacral radiculopathy Procedures MR Cervical Spine wo IV Contrast Claire Davidson MD [address] [address] Phone: tel: fax: Referral ID Status Reason Start Date Expiration Date Visits Re quested Visits Authorized [id number] Closed 03/08/2025 09/07/2026 1 1 Encounter Details Date Type Department Care Team (Latest Contact Info) Description 05/14/2025 1:04 PM EST - 05/14/2025 11:59 PM [facility] Hospital Encounter [facility] MRI [address] [place] [phone] Lumbosacral radiculopathy Discharge Disposition: Home or Self [...] on file documented as of this encounter Medications at Time of Discharge busPIRone (Buspar) 7.5 MG tablet Take 1 tablet by mouth 2 times a day. 09/19/2024 cyclobenzaprine (Flexeril) 10 MG tablet Take 1 tablet by mouth 3 times a day as needed for muscle spasms. 03/27/2025 diclofenac (Voltaren) 1 % topical gel Place 2 g on the skin 4 times a day as needed (joint pain). 03/24/2022 ergocalciferol (Vitamin D-2) 1.25 MG (57672 UT) capsule Take 1 capsule by mouth 1 time per week. Take on Wednesday04/09/2020 Jardiance 25 MG Take 1 tablet by mouth daily. 05/13/2023 lansoprazole (Prevacid) [address] capsule Take 1 capsule by mouth daily. 08/18/2022 oxyCODONE (Roxicodone) 5 MG immediate release tablet Take 1.5 tablets by mouth 3 times a day. 02/12/2025 Ozempic, 1 MG/DOSE, 4 MG/3ML solution pen-injector Inject 1 mg under the skin 1 time per week. 09/19/2024 valACYclovir (Valtrex) 500 MG tablet Take 1 tablet by mouth every morning. baclofen (Lioresal) 10 MG tablet Take 1 tablet by mouth nightly. 30 tablet 04/03/2025 5 BD Pen Needle Candie Ultrafine 32G X 4 MM misc 2 times a day. 12/26/202405/18 Blood Glucose Monitoring Suppl (Incurone) w/Device kit use DIRECTED TO check BLOOD GLUCOSE THREE TIMES DAILY 01/24/2025 bumetanide (Bumex) 1 MG tablet Take 2 tablets by mouth daily. 08/18/2022 Continuous Glucose Sensor ([employer] G7 Sensor) misc USE TO MONITOR BLOOD SUGAR DIRECTED. CHANGE SENSOR EVERY 10 DAYS. 02/22/2025 5 desvenlafaxine (Pristiq) 100 MG 24 hr tablet Take 50 mg by mouth daily. 5 Easy Touch Lancets 30G misc 3 times a day. as directed 02/22/2025 5 Embecta Insulin Syr Ultrafine 31G X 15/64 1 ML misc USE TO INJECT INSULIN EVERY MORNING DIRECTED 02/27/2025 FeroSul 325 (65 Fe) MG tablet Take 1 tablet by mouth daily. 04/27/2023 5 hydrOXYzine HCl (Atarax) 25 MG tablet Take 1 tablet by mouth daily as needed. 08/18/2022 hydrOXYzine pamoate (Vistaril) 25 MG capsule Take 1 capsule by mouth 3 times a day as needed for itching. 09/19/2024 5 insulin glargine (Lantus SoloStar) 100 UNIT/ML injection pen Inject 20 Units under the skin every morning. 04/11/2020 5 lactulose (Chronulac) 10 GM/15ML oral solution Take 15 mL by mouth daily. 03/20/2025 5 lisinopril 2.5 MG tablet Take 1 tablet by mouth daily. 08/08/2024 5 metoprolol succinate XL (Toprol-XL) 50 MG 24 hr tablet Take 2 tablets by mouth daily. 08/18/2022 5 metoprolol succinate XL (Toprol-XL) 50 MG 24 hr tablet Take 1 tablet by mouth daily. 02/22/2025 5 NovoLOG FLEXPEN 100 UNIT/ML injection pen Inject 5 Units under the skin 3 times a day as needed for high blood sugar (for BG > 150). 09/01/2024 5 ondansetron (Zofran) 4 MG tablet Take 1 tablet by mouth every 8 hours as needed. 10/24/2023 5 [employer] Verio test strip Use 3 per day. Code E11.65 10/19/2024 5 pantoprazole (Protonix) 40 MG EC tablet Take 1 tablet by mouth daily. 03/19/2025 5 potassium chloride CR (Klor-Con M20) 20 MEQ ER tablet Take 1 tablet by mouth 2 times a day. 08/04/2022 5 pregabalin (Lyrica) 25 MG capsule Take 1 capsule by mouth 2 times a day. 02/23/2025 5 promethazine (Phenergan) 25 MG tablet Take 1 tablet by mouth 3 times a day as needed for nausea or vomiting (if not helped by ondansetron). 09/19/2024 5 rifAXIMin (Xifaxan) 550 MG tablet Take 1 tablet by mouth 2 times a day. 09/13/2020 5 Rimegepant Sulfate (Nurtec) 75 MG tablet dispersible Dissolve 1 tablet on the tongue daily as needed (migraine headache). 12/09/2022 5 rOPINIRole (Requip) 1 MG tablet Take 1 tablet by mouth 3 times a day. 07/20/2022 5 simvastatin (Zocor) 20 MG tablet Take 1 tablet by mouth nightly. 08/18/2022 spironolactone (Aldactone) 100 MG tablet Take 1 tablet by mouth 2 times a day. 09/08/2024 5 zinc sulfate (Zincate) 220 (50 Zn) MG capsuleIndication s:End-stage liver disease (CMS/HCC) Take 1 capsule by mouth 2 times a day. 240 capsule 2 04/03/2025 5 documented as of this encounter Plan of Treatment Upcoming Encounters Date Type Department Care Team (Late st Contact Info) Description 07/17/2025 8:45 AM EST Clinical Support [facility] [place] [address] [place] [address] 07/17/2025 10:30 AM EST Office Visit [facility] [place] [address] [place] [address] jN Johns MD [address] [facility] [address] [place] [address] documented as of this encounter [...] cord compression Other Findings: None. Procedure Note Schwartzberg, Leo G, MD - 05/14/2025 CLINICAL INDICATION: Myelopathy, chronic, [...] documented as of this encounter Care Teams Restaurant Assistant Relationship Specialty Start Date End Date Trevor Rolon DO [address] [facility] [address] [place] [address] PCP - General 11/22/20 06/03/25 Mc Grant [address] [facility] [address] [place] [address] Referring Physician Gastroenterology 02/21/24 El Agarwal APRN [address] Referring Physician Gastroenterology 03/21/25 documented as of this encounter
--- OUTSIDE RECORDS SUMMARY | 2025-05-18 09:30 | XMS_ITS | Encounter Summary ---
Author Organization [facility] Address [address] [place] [address] Care Team Providers Care Account Liaison Name Role Phone Trevor Rolon DO Primary Care Provider [phone] Mc Grant Unavailable [phone] El Agarwal APRN Unavailable [phone] Reason for Visit * Consultation (Routine) - Closed Specialty Diagnoses / Procedures Referred By Truong bella Referred To Contact Transplant Diagnoses End-stage liver disease (CMS/HCC) Kaela Khan MD [address] [facility] [address] [place] [address] Phone: tel: fax: [facility] [address] [place] [address] Phone: tel: fax: Referral ID Status Reason Start Date Expiration Date V isits Requested Visits Authorized [id number] Closed Specialty Services Required 04/09/2025 10/09/2026 1 1 Encounter Details Date Type Department Care Team (Late st Contact Info) Description 05/18/2025 9:30 AM EST Clinical Support [facility] [address] [facility] [address] [place] [address] CH - CLINICAL NUTRITION [address] [place] [address] Social History Tobacco Use Types Packs/Day Years [...] Allergies: NKFA. Food Preferences: No cultural or samaritan food preferences. Fluid Retention: History of ascites, [...] Height: 170.2 centimeters Current Weight: 84.3 kilograms [place] Body Weight: 61.4 kilograms (137%) Adjusted Body [...] 0.2 oz) Estimated Needs Kcal/K-32 Kcal recommended: Kcal needs based on: Adjusted Body Weight [...] N/A Breast Surgery Reduction [facility] EXPLORATORY LAPAROTOMY GALLBLADDER SURGERY 2018 GANGLION CYST EXCISION, WRIST Left INCISION AND DRAINAGE, ABCESS 2010 from back LIVER BIOPSY OTHER SURGICAL HISTORY N/A Exploratory Laparotomy from [facility] OVARIAN CYST DRAINAGE N/A Aspiration Of Ovarian Cyst from [facility] TOTAL ABDOMINAL HYSTERECTOMY N/A 2011 Hysterectomy from [facility] [3] Current Outpatient Medications: baclofen (Lioresal) 10 [...] Rfl: 0 ergocalciferol (Vitamin D-2) 1.25 MG (21385 UT) capsule, Take 1 capsule by mouth [...] Description 07/17/2025 8:45 AM EST Clinical Support [facility] [address] [facility] [address] [place] [address] 07/17/2025 10:30 AM EST Office Visit [facility] [address] [facility] [address] [place] [address] Nj Johns MD [address] [facility] [address] [place] [address] documented as of this encounter Visit Diagnoses Not on filedocumented in this encounter Additional Health Concerns Assessment Noted Time PHQ-9 Depression Total Score: 18 025 7:06 AM EDT A fall risk assessment has been complete d for the patient 05/18/2025 10:47 AM EST A Body Mass Index follow-up plan has been documented for the patient 05/28/2025 8:16 AM EST documented as of this encounter Care Teams Account Liaison Relationship Specialty Start Date End Date Trevor Rolon DO [address] [facility] [address] [place] [address] PCP - General 11/22/20 06/03/25 Mc Grant [address] [facility] [address] [place] [address] Referring Physician Gastroenterology 02/21/24 El Agarwal APRN [address] Referring Physician Gastroenterology 03/21/25 documented as of this encounter
--- OUTSIDE RECORDS SUMMARY | 2025-05-18 10:50 | XMS_ITS | Encounter Summary ---
Author Organization [facility] Address [address] [place] [address] Care Team Providers Care Roll Hauler Name Role Phone Trevor Rolon DO Primary Care Provider Mc Grant Unavailable [phone] [address] APRN Unavailable [phone] Reason for Visit * Reason Comments Pre-Liver Txp Follow-up * Transplant (Routine) - Pending Review Specialty Diagnoses / Procedures Referred By Truong bella Referred To Contact Transplant Diagnoses End-stage liver disease (CMS/HCC) Kaela Khan MD [address] [place] [address] Phone: tel: fax: [facility] [address] [place] [address] Phone: tel: fax: Referral ID Status Reason Start Date Expiration Date Visits Requested Visits Authorized [id number] Pending Review Specialty Services Required 04/09/2025 10/09/2026 [id number] Encounter Details Date Type Department Care Team (Latest Contact Info) Description 05/18/2025 10:50 AM EST Office Visit [facility] [address] [place] [address] Nj Johns MD [address] [place] [address] Metabolic syndrome (Primary Dx); End-stage liver disease (CMS/HCC); Other ascites; Hepatic encephalopathy (CMS/HCC); Elevated alkaline [...] Recorded Patient Health Questionnaire-9 Score 18 04/03/2025 Humiliation, Afraid, Rape, and Kick questionnair e Answer Date Recorded Within the last year, have y ou been afraid of your partner or ex-partner? No 05/25/2025 Within the last year, have y ou been humiliated or emotionally abused in other ways by your partner or ex-partner? No Within the last year, have y ou been kicked, hit, slapped, or otherwise physically hurt by your partner or ex-partner? No 05/25/2025 Within the last year, have y ou been raped or forced to have any kind of sexual activity by your partner or ex-partner? No 05/25/2025 Hunger Vital Sign Answer Date Recorded Within the past 12 months, y ou worried that your food would run out before you got the money to buy more. Never true 05/28/20 25 Within the past 12 months, t he food you bought just didn't last and you didn't have money to get more. Never true 05/28/2025 PRAPARE - Transportation Answer Date Re corded In the past 12 months, has l ack of transportation kept you from medical appointments or from getting medications? No 05/12 In the past 12 months, has l ack of transportation kept you from meetings, work, or from getting things needed for daily living? No 05/25/2025 Housing Stability Vital Sign Answer Matt e Recorded Unable to Pay for Housing in the Last Year Not o n file 05/28/2025 In the past 12 months, how m any times have you moved where you were living? 0 05/28/2025 At any time in the past 12 m [facility], were you homeless or living in a prison (including now)? No 05/28/2025 [facility] Utilities Answer Date Recorded In the past 12 months has e electric, gas, oil, or water company threatened to shut off services in your home? No 05/25/2025 Comments Unknown Sex and Gender Information Value [...] * BP Answer Date of Assessment Author 96/61 05/18/2025 10:44 AM EST Macario, C charles * Temp Answer Date of Assessment Author 98.1 05/18/2025 10:44 AM EST Macario, C charles * Pulse Answer Date of Assessment Author 97 05/18/2025 10:44 AM EST Macario, C charles * Resp Answer Date of Assessment Author 16 05/18/2025 10:44 AM EST Macario, C charles * SpO2 Answer Date of Assessment Author 99 05/18/2025 10:44 AM EST Macario, C charles * Height Answer Date of Assessment Author 67 05/18/2025 10:44 AM EST Macario, C charles * Weight Answer Date of Assessment Author 2973.56 05/18/2025 10:44 AM EST Macario, C charles * BMI (Calculated) Answer Date of Assessment Author 29.2 05/18/2025 10:44 AM EST Macario, C charles * Percent Excess Weight Loss Answer Date of Assessment Author 0 05/18/2025 10:44 AM EST Macario, C charles * Total Weight Change Percent Answer Date of Assessment Author 2222 05/18/2025 10:44 AM EST Macario, C charles * Weight Change Since Preop Answer Date of Assessment Author 84.28 05/18/2025 10:44 AM EST Macario, C charles * Initial Excess Weight Answer Date of Assessment Author -61.24 05/18/2025 10:44 AM EST Macario, C charles * IBW in lbs (Bariatric) Answer Date of Assessment Author 135 05/18/2025 10:44 AM EST Macario, C charles * Weight Change Since Last Visit Answer Date of Assessment Author 84.28 05/18/2025 10:44 AM EST Macario, C charles * IBW in kg (Bariatric) Answer Date of Assessment Author 61.24 05/18/2025 10:44 AM EST Macario, C charles * Percent of IBW Answer Date of Assessment Author 4,855.58 05/18/2025 10:44 AM EST Macario, C charles * EBW (kg) Answer Date of Assessment Author 2,971.82 05/18/2025 10:44 AM EST Macario, C charles * EBW (lbs) Answer Date of Assessment Author 2,965.12 05/18/2025 10:44 AM EST Macario, C charles * Weight Change 24 hrs Answer Date of Assessment Author 6.3 05/18/2025 10:44 AM EST Macario, C charles * Depression Screening Question Answer Date of Assessment Author Will the patient answer the depression risk questions? Yes 05/18/2025 10:47 AM EST Macario, Adriane * BSA (Calculated - sq m) Answer Date of Assessment Author 2 05/18/2025 10:44 AM EST Macario, C charles * BMI (Calculated) Answer Date of Assessment Author 29.1 05/18/2025 10:44 AM EST Macario, C charles * IBW/kg (Calculated) Male Answer Date of Assessment Author 66.1 05/18/2025 10:44 AM EST Macario, C charles * IBW/kg (Calculated) Female Answer Date of Assessment Author 61.6 05/18/2025 10:44 AM EST Macario, C charles * Restart Vitals Timer Answer Date of Assessment Author Yes 05/18/2025 10:44 AM EST Macario, C charles * IBW/kg (Calculated) Answer Date of Assessment Author 61.6 05/18/2025 10:44 AM EST Macario, C charles * Over the past 2 weeks, how often have you been bothered by any of the following problems? Question Answer Date of Assessment Author Little interest or pleasure in doing things Not at all 05/18/2025 10:47 AM EST Macario, Adriane Feeling down, depressed, or hopeless Not at all 01/2025 10:47 AM EST Macario, Adriane Patient Health Questionnaire-2 Score 0 01/2025 10:47 AM EST Macario, Adriane * Current supplemental O2 requirements Question Answer Date of Assessment Author Oxygen Therapy None (Room air) 05/18/2025 10:45 AM EST Macario, Adriane * Hospitalization Question Answer Date of Assessment Author Hospitalized since last clinic visit? No 01/2025 10:45 AM EST Macario, Adriane * Weight in (lb) to have BMI = 25 Answer Date of Assessment Author 159.3 05/18/2025 10:44 AM EST Macario, C charles * BMI (Calculated) Answer Date of Assessment Author 29.2 05/18/2025 10:44 AM EST Macario, C charles * Percent Excess Weight Loss Answer Date of Assessment Author 0 05/18/2025 10:44 AM EST Macario, C charles * Weight Change Since Preop Answer Date of Assessment Author 84.3 05/18/2025 10:44 AM EST Macario, C charles * Initial Excess Weight Answer Date of Assessment Author -61.24 05/18/2025 10:44 AM EST Macario, C charles * IBW in kg (Bariatric) Answer Date of Assessment Author 61.24 05/18/2025 10:44 AM EST Macario, C charles * IBW in lb (Bariatric) Answer Date of Assessment Author 135 05/18/2025 10:44 AM EST Macario, C charles * Weight Change Since Last Visit Answer Date of Assessment Author 6.3 05/18/2025 10:44 AM EST Macario, C charles * Percent of IBW Answer Date of Assessment Author 137.66 05/18/2025 10:44 AM EST Macario, C charles * EBW (kg) Answer Date of Assessment Author 23.04 05/18/2025 10:44 AM EST Macario, C charles * EBW (lb) Answer Date of Assessment Author 50.85 05/18/2025 10:44 AM EST Macario, C charles * Difference in Weight Since Last Visit Answer Date of Assessment Author 6.3 05/18/2025 10:44 AM EST Macario, C charles * Temp (in Celsius) for TRIBE IV Answer Date of Assessment Author 36.7 05/18/2025 10:44 AM EST Macario, C charles * IBW/kg (Calculated) Answer Date of Assessment Author 61.6 05/18/2025 10:44 AM EST Macario, C charles * Adult Low Range Vt 6mL/kg Answer Date of Assessment Author 369.6 05/18/2025 10:44 AM EST Macario, C charles * Adult Moderate Range Vt 8mL/kg Answer Date of Assessment Author 492.8 05/18/2025 10:44 AM EST Macario, C charles * Adult High Range Vt 10mL/kg Answer Date of Assessment Author 616 05/18/2025 10:44 AM EST Macario, C charles * Vitals Timer Question Answer Date of Assessment Author Restart Vitals Timer Yes 05/18/2025 10:44 AM EST Macario, Adriane * BP Answer Date of Assessment Author 96/61 05/18/2025 10:44 AM EST Macario, C charles * Temp Answer Date of Assessment Author 98.1 05/18/2025 10:44 AM EST Macario, C charles * Pulse Answer Date of Assessment Author 97 05/18/2025 10:44 AM EST Macario, C charles * Resp Answer Date of Assessment Author 16 05/18/2025 10:44 AM EST Macario, C charles * SpO2 Answer Date of Assessment Author 99 05/18/2025 10:44 AM EST Macario, C charles * Height Answer Date of Assessment Author 67 05/18/2025 10:44 AM EST Macario, C charles * Weight Answer Date of Assessment Author 2973.56 05/18/2025 10:44 AM EST Macario, C charles * BSA (Calculated - sq m) Answer Date of Assessment Author 2 05/18/2025 10:44 AM EST Macario, C charles * BMI (Calculated) Answer Date of Assessment Author 29.1 05/18/2025 10:44 AM EST Macario, C charles * Restart Vitals Timer Answer Date of Assessment Author Yes 05/18/2025 10:44 AM EST Macario, C charles * Over the past 2 weeks, how often have you been bothered by any of the following problems? Question Answer Date of Assessment Author Little interest or pleasure in doing things Not at all 05/18/2025 10:47 AM EST Macario, Adriane Feeling down, depressed, or hopeless Not at all 01/2025 10:47 AM EST Macario, Adriane Patient Health Questionnaire-2 Score 0 01/2025 10:47 AM EST Macario, Adriane * Weight in (lb) to have BMI = 25 Answer Date of Assessment Author 159.3 05/18/2025 10:44 AM EST Macario, C charles documented as of this encounter Mental Status * BP Answer Entry Date Author 96/61 05/18/2025 10:44 AM EST Macario, C charles * Temp Answer Entry Date Author 98.1 05/18/2025 10:44 AM EST Macario, C charles * Pulse Answer Entry Date Author 97 05/18/2025 10:44 AM EST Macario, C charles * Resp Answer Entry Date Author 16 05/18/2025 10:44 AM EST Macario, C charles * SpO2 Answer Entry Date Author 99 05/18/2025 10:44 AM EST Macario, C charles * Height Answer Entry Date Author 67 05/18/2025 10:44 AM EST Macario, C charles * Weight Answer Entry Date Author 2973.56 05/18/2025 10:44 AM EST Macario, C charles * BMI (Calculated) Answer Entry Date Author 29.2 05/18/2025 10:44 AM EST Macario, C charles * Percent Excess Weight Loss Answer Entry Date Author 0 05/18/2025 10:44 AM EST Macario, C charles * Total Weight Change Percent Answer Entry Date Author 2222 05/18/2025 10:44 AM EST Macario, C charles * Weight Change Since Preop Answer Entry Date Author 84.28 05/18/2025 10:44 AM EST Macario, C charles * Initial Excess Weight Answer Entry Date Author -61.24 05/18/2025 10:44 AM EST Macario, C charles * IBW in lbs (Bariatric) Answer Entry Date Author 135 05/18/2025 10:44 AM EST Macario, C charles * Weight Change Since Last Visit Answer Entry Date Author 84.28 05/18/2025 10:44 AM EST Macario, C charles * IBW in kg (Bariatric) Answer Entry Date Author 61.24 05/18/2025 10:44 AM EST Macario, C charles * Percent of IBW Answer Entry Date Author 4,855.58 05/18/2025 10:44 AM EST Macario, C charles * EBW (kg) Answer Entry Date Author 2,971.82 05/18/2025 10:44 AM EST Macario, C chrales * EBW (lbs) Answer Entry Date Author 2,965.12 05/18/2025 10:44 AM EST Macario, C charles * Weight Change 24 hrs Answer Entry Date Author 6.3 05/18/2025 10:44 AM EST Macario, C charles * Depression Screening Question Answer Entry Date Author Will the patient answer the depression risk questions? Yes 05/18/2025 10:47 AM EST Macario, Adriane * BSA (Calculated - sq m) Answer Entry Date Author 2 05/18/2025 10:44 AM EST Macario, C charles * BMI (Calculated) Answer Entry Date Author 29.1 05/18/2025 10:44 AM EST Macario, C charles * IBW/kg (Calculated) Male Answer Entry Date Author 66.1 05/18/2025 10:44 AM EST Macario, C charles * IBW/kg (Calculated) Female Answer Entry Date Author 61.6 05/18/2025 10:44 AM EST Macario, C charles * Restart Vitals Timer Answer Entry Date Author Yes 05/18/2025 10:44 AM EST Macario, C charles * IBW/kg (Calculated) Answer Entry Date Author 61.6 05/18/2025 10:44 AM EST Macario, C charles * Over the past 2 weeks, how often have you been bothered by any of the following problems? Question Answer Entry Date Author Little interest or pleasure in doing things Not at all 05/18/2025 10:47 AM EST Macario, Adriane Feeling down, depressed, or hopeless Not at all 01/2025 10:47 AM EST Macario, Adriane Patient Health Questionnaire-2 Score 0 01/2025 10:47 AM EST Macario, Adriane * [facility] Mental Health Concern Calculation Answer Entry Date Author 3 05/18/2025 10:47 AM EST Macario, C charles * Weight in (lb) to have BMI = 25 Answer Entry Date Author 159.3 05/18/2025 10:44 AM EST Macario, C charles * BMI (Calculated) Answer Entry Date Author 29.2 05/18/2025 10:44 AM EST Macario, C charles * Percent Excess Weight Loss Answer Entry Date Author 0 05/18/2025 10:44 AM EST Macario, C charles * Weight Change Since Preop Answer Entry Date Author 84.3 05/18/2025 10:44 AM EST Macario, C charles * Initial Excess Weight Answer Entry Date Author -61.24 05/18/2025 10:44 AM EST Macario, C charles * IBW in kg (Bariatric) Answer Entry Date Author 61.24 05/18/2025 10:44 AM EST Macario, C charles * IBW in lb (Bariatric) Answer Entry Date Author 135 05/18/2025 10:44 AM EST Macario, C charles * Weight Change Since Last Visit Answer Entry Date Author 6.3 05/18/2025 10:44 AM EST Macario, C charles * Percent of IBW Answer Entry Date Author 137.66 05/18/2025 10:44 AM EST Macario, C charles * EBW (kg) Answer Entry Date Author 23.04 05/18/2025 10:44 AM EST Macario, C charles * EBW (lb) Answer Entry Date Author 50.85 05/18/2025 10:44 AM EST Macario, C charles * Difference in Weight Since Last Visit Answer Entry Date Author 6.3 05/18/2025 10:44 AM EST Macario, C charles * Temp (in Celsius) for TRIBE IV Answer Entry Date Author 36.7 05/18/2025 10:44 AM EST Macario, C charles * IBW/kg (Calculated) Answer Entry Date Author 61.6 05/18/2025 10:44 AM EST Macario, C charles * Adult Low Range Vt 6mL/kg Answer Entry Date Author 369.6 05/18/2025 10:44 AM EST Macario, C charles * Adult Moderate Range Vt 8mL/kg Answer Entry Date Author 492.8 05/18/2025 10:44 AM EST Macario, C charles * Adult High Range Vt 10mL/kg Answer Entry Date Author 616 05/18/2025 10:44 AM EST Macario, C charles * Vitals Timer Question Answer Entry Date Author Restart Vitals Timer Yes 05/18/2025 10:44 AM EST Macario, Adriane documented in this encounter Miscellaneous Notes * Progress Notes - Nish Hawley MD - 05/18/2025 10:50 AM EST Subjective Patient ID: Trudy Peña is a 54 y.o. female. Chief Complaint Patient presents with Pre-Liver Txp Follow-up Trudy Peña is a 54 yo female with a PMH of decompensated MASH cirrhosis. Here today for follow up for transplant clinic. Last seen in office 04/03/[address] Johns. History of Present Illness She reports experiencing spasms in her legs, with her toes locking up and pointing upwards. Similarspasms are noted in her fingers, which also exhibit swelling today. These spasms, which she can visibly trace up and down her limbs, are associated with severe pain and occur at least 3 to 4 times a week. She has not experienced any swelling this week. Her spironolactone dosage was recently reducedto 150 mg daily, and she is also on bumetanide 2 mg twice daily. She reports feeling fluid in her abdomen before noticing it in her legs. During a recent hospital stay, she received IV Lasix but did not undergo paracentesis. She has a history of confusion related to HE. She is on Medicaid and no longer able to have rifaximin covered bu insurance. She has a one week supply left. She has not been hospitalized before for HEbut recalls an episode of severe disorientation about a year ago. She has never taken zinc due to lack of insurance coverage. She is currently on lactulose, which results in 3 to 4 bowel movements per day. EGD earlier this year showed GAVE which was treated with APC. She has experienced falls, including one last week, but does not use any assistive devices for mobility. She reports difficulty sleeping at night and often stays awake until color developer. She is on metoprolol 50 mg once daily for palpitations and irregular heartbeat. She was previously on a higher dose of 200 mg but experienced excessive sleepiness, leading to a reduction in dosage over the past 6 months. She is scheduled to see a tableman in June 2025. She is also on lisinopril 2.5 mg for kidney protection, prescribed by her family doctor. Sleep: Reports difficulty sleeping at night and often stays awake until color developer. Living Condition: Lives with her sister. Decompensation history Ascites - yes. No prior paracentesis Variceal bleeding - no HE - yes Past medical hx Cirrhosis Type 2 DM CHF Previously HTNsive Diabetic neuropathy Migraines Ascites Surgical hx Lap CCY Family hx Breast cancer: 3 Aunt. Social hx Lives with sister. Sister is with her who is going primary caregiver. Alcohol: None Smoking: Quit 03/2025 Drugs/Substances: None The following portions of the chart were reviewed this encounter and updated as appropriate: Review of Systems 14 point ROS negative except for HPI Objective Visit Vitals Ht 1.702 m (5' 7 ) Wt 84.3 kg (185 lb 13.6 oz) BMI 29.11 kg/m?? Physical Exam: General Awake, NAD EYES EOMI, sclera anicteric HEAD Atraumatic. No temporal wasting ENT Hearing grossly normal. CV Regular rate and rhythm RES Normal effort. On room air. GI Soft. NT/ND. No rebound, guarding. No ascites DIEGO AAOx4. No gross deficits. EXT No cyanosis. No edema SKIN No jaundice. No spider angiomata. No palmar erythema PSY Appropriate mood and affect Current Medications[1] Laboratory values CBC: WBC Count Date/Time Value Ref Range Status 05/18/2025 08:47 AM 6.16 3.70 - 10.30 10*3/uL Final 04/03/2025 06:38 AM 9.16 3.70 - 10.30 10*3/uL Final 02/22/2024 07:30 AM 4.20 3.70 - 10.30 10*3/uL Final External WBC Date/Time Value Ref Range Status 04/19/2025 12:00 AM 8.8 Final 04/11/2025 12:00 AM 9.3 Final HGB Date/Time Value Ref Range Status 05/18/2025 08:47 AM 13.0 11.2 - 15.7 g/dL Final 04/03/2025 06:38 AM 13.6 11.2 - 15.7 g/dL Final 02/22/2024 07:30 AM 13.9 11.2 - 15.7 g/dL Final External Hemoglobin (Hgb) Date/Time Value Ref Range Status 04/19/2025 12:00 AM 12.80 Final 04/11/2025 12:00 AM 12.20 Final HCT Date/Time Value Ref Range Status 05/18/2025 08:47 AM 38.4 34.0 - 45.0 % Final 04/03/2025 06:38 AM 41.4 34.0 - 45.0 % Final 02/22/2024 07:30 AM 39.9 34.0 - 45.0 % Final External Hematocrit (Hct) Date/Time Value Ref Range Status 04/19/2025 12:00 AM 36.9 Final 04/11/2025 12:00 AM 35.1 Final Platelet Count Date/Time Value Ref Range Status 05/18/2025 08:47 AM 78 (L) 155 - 369 10*3/uL Final 04/03/2025 06:38 AM 87 (L) 155 - 369 10*3/uL Final 02/22/2024 07:30 AM 79 (L) 155 - 369 10*3/uL Final External Platelet Count (Plt) Date/Time Value Ref Range Status 04/19/2025 12:00 AM 98 Final 04/11/2025 12:00 AM 78 Final CMP: Sodium, Plasma Date/Time Value Ref Range Status 05/18/2025 08:47 AM 132 (L) 136 - 145 mmol/L Final 04/03/2025 06:38 AM 133 (L) 136 - 145 mmol/L Final 02/22/2024 07:30 AM 141 136 - 145 mmol/L Final External Sodium (Na) Date/Time Value Ref Range Status 04/19/2025 12:00 AM 129 mEq/L Final 04/11/2025 12:00 AM 128 mEq/L Final External Sodium Date/Time Value Ref Range Status 02/26/2025 12:00 AM 133 mmol/L Final Potassium, Plasma Date/Time Value Ref Range Status 05/18/2025 08:47 AM 4.9 3.6 - 4.9 mmol/L Final 04/03/2025 06:38 AM 4.9 3.6 - 4.9 mmol/L Final 02/22/2024 07:30 AM 3.9 3.7 - 4.8 mmol/L Final External Potassium (K) Date/Time Value Ref Range Status 04/19/2025 12:00 AM 5.1 Final 04/11/2025 12:00 AM 4.3 Final Chloride, Plasma Date/Time Value Ref Range Status 05/18/2025 08:47 AM 100 97 - 107 mmol/L Final 04/03/2025 06:38 AM 100 97 - 107 mmol/L Final 02/22/2024 07:30 AM 106 97 - 107 mmol/L Final External Chloride (Cl) Date/Time Value Ref Range Status 04/19/2025 12:00 AM 92 Final 04/11/2025 12:00 AM 98 Final CO2, Plasma Date/Time Value Ref Range Status 05/18/2025 08:47 AM 23 22 - 29 mmol/L Final 04/03/2025 06:38 AM 23 22 - 29 mmol/L Final 02/22/2024 07:30 AM 26 22 - 29 mmol/L Final External Carbon Dioxide (CO2) Date/Time Value Ref Range Status 04/19/2025 12:00 AM 29 Final 04/11/2025 12:00 AM 23 Final BUN, Plasma Date/Time Value Ref Range Status 05/18/2025 08:47 AM 21 7 - 21 mg/dL Final 04/03/2025 06:38 AM 19 7 - 21 mg/dL Final 02/22/2024 07:30 AM 12 7 - 21 mg/dL Final External BUN Date/Time Value Ref Range Status 04/19/2025 12:00 AM 33 Final 04/11/2025 12:00 AM 24 Final Creatinine, Plasma Date/Time Value Ref Range Status 05/18/2025 08:47 AM 1.10 0.60 - 1.10 mg/dL Final 04/03/2025 06:38 AM 0.98 0.60 - 1.10 mg/dL Final 02/22/2024 07:30 AM 0.77 0.60 - 1.10 mg/dL Final External Creatinine Blood Date/Time Value Ref Range Status 04/19/2025 12:00 AM 1.4 mg/dL Final 04/11/2025 12:00 AM 0.90 mg/dL Final 02/26/2025 12:00 AM 0.7 mg/dL Final Total Calcium, Plasma Date/Time Value Ref Range Status 05/18/2025 08:47 AM 9.4 8.9 - 10.2 mg/dL Final 04/03/2025 06:38 AM 9.5 8.9 - 10.2 mg/dL Final 02/22/2024 07:30 AM 9.2 8.9 - 10.2 mg/dL Final External Calcium (Ca) Date/Time Value Ref Range Status 04/19/2025 12:00 AM 9 Final 04/11/2025 12:00 AM 8.7 Final External Total Protein Date/Time Value Ref Range Status 04/19/2025 12:00 AM 6.3 Final 04/11/2025 12:00 AM 6.1 Final Total Bilirubin, Plasma Date/Time Value Ref Range Status 05/18/2025 08:47 AM 2.2 (H) 0.2 - 1.1 mg/dL Final 04/03/2025 06:38 AM 2.0 (H) 0.2 - 1.1 mg/dL Final 02/22/2024 07:30 AM 0.8 0.2 - 1.1 mg/dL Final External Bilirubin Total Date/Time Value Ref Range Status 04/19/2025 12:00 AM 2.4 mg/dL Final 04/11/2025 12:00 AM 3.4 mg/dL Final 02/26/2025 12:00 AM 2.5 mg/dL Final Alkaline Phosphatase, Plasma Date/Time Value Ref Range Status 05/18/2025 08:47 AM 233 (H) 35 - 104 U/L Final 04/03/2025 06:38 AM 264 (H) 35 - 104 U/L Final 02/22/2024 07:30 AM 190 (H) 35 - 104 U/L Final External Alkaline Phosphatase Date/Time Value Ref Range Status 04/19/2025 12:00 AM 267 Final 04/11/2025 12:00 AM 225 Final ALT, Plasma Date/Time Value Ref Range Status 05/18/2025 08:47 AM 65 (H) 10 - 35 U/L Final 04/03/2025 06:38 AM 54 (H) 10 - 35 U/L Final 02/22/2024 07:30 AM 37 (H) 10 - 35 U/L Final External ALT (SGPT) Date/Time Value Ref Range Status 04/19/2025 12:00 AM 73 Final 04/11/2025 12:00 AM 70 Final AST, Plasma Date/Time Value Ref Range Status 05/18/2025 08:47 AM 97 (H) 10 - 35 U/L Final 04/03/2025 06:38 AM 74 (H) 10 - 35 U/L Final 02/22/2024 07:30 AM 62 (H) 10 - 35 U/L Final External AST (SGOT) Date/Time Value Ref Range Status 04/19/2025 12:00 AM 86 Final 04/11/2025 12:00 AM 92 Final Glucose, Plasma Date/Time Value Ref Range Status 05/18/2025 08:47 AM 135 (H) 74 - 99 mg/dL Final 04/03/2025 06:38 AM 164 (H) 74 - 99 mg/dL Final 02/22/2024 07:30 AM 90 74 - 99 mg/dL Final External Glucose Date/Time Value Ref Range Status 04/19/2025 12:00 AM 100 Final 04/11/2025 12:00 AM 130 Final Imaging/Radiology No images are attached to the encounter or orders placed in the encounter. Assessment/Plan Trudy Peña is a 54 yo female with a PMH of decompensated MASH cirrhosis. Here today for follow up for transplant clinic. Assessment & Plan End-stage liver disease (CMS/HCC) Decompensated cirrhosis - Etiology unclear, possibly MASH but mild steatosis on 2018 biopsy. Diagnosed 2018 during cholecystectomy - Prior serologic workup: +AMA 29.3, ASMA 1:20, IgG 1747. Negative anti-Sp100 and Anti-Gp210 - Elevated AST, ALT, ALP and T bili - Liver wedge biopsy (2018) with increased fibrosis in portal tracts and possible bridging fibrosis. Lymphocytic infiltrate. Mild steatosis. MELD 3.0: 19 at 05/18/2025 8:47 AM MELD-Na: 18 at 05/18/2025 8:47 AM Calculated from: Serum Creatinine: 1.1 mg/dL at 05/18/2025 8:47 AM Serum Sodium: 132 mmol/L at 05/18/2025 8:47 AM Total Bilirubin: 2.2 mg/dL at 05/18/2025 8:47 AM Serum Albumin: 3.3 g/dL at 05/18/2025 8:47 AM INR(ratio): 1.4 at 05/18/2025 8:47 AM Age at listing (hypothetical): 54 years Sex: Female at 05/18/2025 8:47 AM Complications of liver disease include: Ascites, hepatic encephalopathy History of: Type 2 diabetes mellitus, hyperlipidemia, CHF Chemical dependency: None - Counseled on the nature, symptoms & signs, and complications of cirrhosis. - Advised to avoid NSAIDS, can take acetaminophen but not to exceed 2000 mg a day. - Continue standard eval # Ascites / pedal edema: - No prior paracentesis - Diuretics: currently on bumex 2 mg /day and spironolactone 150 mg/day - Recommend strict 2 gm /day salt diet # Hepatic Encephalopathy: - Grade II, moderately uncontrolled - On lactulose and rifaximin but rifaximin no longer covered by insurance # Esophageal varices screening: - EGD 12/15/24 with non-obstructing Schatzki ring, 2 cm hiatal hernia, non- bleeding GAVE s/p APC. No mention of EV - Educated on S/S of GI bleed and advised to go to ER if any occurs. # HCC surveillance: - US Liver 04/2024 without focal lesion - AFP 5.9 (05/18/25) # Nutritional counseling - Counseled on the importance of increasing protein intake, advised to get 1.2- 1.5 gram/kg a day. - Advised to take late night snack. # Health Maintenance: - Hep A and B non-immune. Vaccinate at follow up - Colonoscopy 2022: Normal. Repeat in 5 years PLAN: - MELD labs updated today - Consider liver biopsy. Prior biopsy in 2018 was fragmented and had non- specific findings and etiology of cirrhosis remains unclear. - Continue bumex 2 mg daily and spironolactone 150 mg daily - Continue lactulose and rifaximin. Rifaximin is no longer being covered by Medicaid. Zinc previously denied by insurance and having grade I-II HE at home. Will reorder zinc - On lisinopril and metoprolol, titration via PCP - Over due for HCC screening imaging. CT liver previously ordered and scheduled. Continue q6 HCC screening - Scheduled for mammogram 05/31/25 - Refer to physical therapy for frequent falls Cramping - Continue baclofen and pickle juice RTC in 8 weeks Staffed w/ attending: Dr. Andreas Hawley MD Hepatology Fellow [1] Current Outpatient Medications: baclofen (Lioresal) 10 MG tablet, Take 1 tablet by mouth nightly., Disp: 30 tablet, Rfl: 0 BD Pen Needle Candie Ultrafine 32G X [address] [facility], 2 times a day., Disp: , Rfl: [...] Rfl: Continuous Glucose Sensor (Dexcom G7 Sensor) [facility] [place], USE TO MONITOR BLOOD SUGAR DIRECTED. CHANGE [...] area FOUR TIMES DAILY, Disp: , Rfl: diphenhydrAMINE (Benadryl) 50 MG tablet, - 50 mg PO [address] to [address] scan on 05-25-25, Disp: 1 tablet, Rfl: 0 Easy Touch Lancets 30G misc, 3 times a day. as directed, Disp: , Rfl: Embecta Insulin Syr Ultrafine 31G X 15/64 1 ML misc, USE TO INJECT INSULIN EVERY MORNING DIRECTED, Disp: , Rfl: ergocalciferol (Vitamin D-2) 1.25 MG (44271 UT) capsule, Take 1 capsule by mouth [...] (one) time each day., Disp: , Rfl: lisinopril 2.5 MG tablet, Take 1 tablet by mouth daily., Disp: , Rfl: metoprolol succinate XL (Toprol-XL) 50 MG 24 hr tablet, Take 2 tablets by mouth daily., Disp: , Rfl: metoprolol [...] (two) times a day., Disp: , Rfl: predniSONE (Deltasone) 50 MG tablet, 50 [...] MG tablet, Take 2 tablets by mouth daily. (Patient taking differently: Take 1.5 tablets by mouth daily.), Disp: , Rfl: valACYclovir (Valtrex) 500 MG tablet, Take 1 tablet by mouth every morning., Disp: , Rfl: zinc sulfate (Zincate) 220 (50 Zn) MG capsule, Take 1 capsule by mouth 2 times a day., Disp: 240 capsule, Rfl: 2 hydrOXYzine HCl (Atarax) 25 MG tablet, Take 1 tablet by mouth daily as needed. (Patient not taking:Reported on 05/18/2025), Disp: , Rfl: pantoprazole (Protonix) 40 MG EC tablet, Take 1 tablet by mouth daily. (Patient not taking: Reported on 05/18/2025), Disp: , Rfl: Cosigned by Nj Johns MD at 05/27/2025 8:00 PM EST Associated attestation - Nj Johns MD - 05/27/2025 8:00 PM EST I saw and evaluated the patient with the resident/fellow. I discussed the case with the resident/fellow and agree with the findings and plan as documented. Nj Johns MD documented in this encounter Plan of Treatment Upcoming Encounters Date Type Department Care Team (Late st Contact Info) Description 07/17/2025 8:45 AM EST Clinical Support [facility] [place] [address] [facility] [address] [place] [address] 07/17/2025 10:30 AM EST Office Visit [facility] [place] [address] [facility] [address] [place] [address] Nj Johns MD [address] [facility] [address] [place] [address] documented as of this encounter Visit Diagnoses Diagnosis Metabolic syndrome- Primary Dysmetabolic Syndrome X End-stage liver disease (CMS/HCC) Other sequelae of chronic liver disease Other ascites Hepatic encephalopathy (CMS/HCC) Hepatic encephalopathy Elevated alkaline phosphatase level documented in this encounter Additional Health Concerns Assessment Noted Time PHQ-9 Depression Total Score: 18 04/03/ 025 7:06 AM EDT A fall risk assessment has been complete d for the patient 05/18/2025 10:47 AM EST A Body Mass Index follow-up plan has been documented for the patient 05/28/2025 8:16 AM EST documented as of this encounter Care Teams Roll Hauler Relationship Specialty Start Date End Date Trevor Rolon DO [address] [facility] [address] [place] [address] PCP - General 11/22/20 06/03/25 Mc Grant [address] [facility] [address] [place] [address] Referring Physician Gastroenterology 02/21/24 El Agarwal APRN [id number] Referring Physician Gastroenterology 03/21/25 documented as of this encounter
--- OUTSIDE RECORDS SUMMARY | 2025-05-18 11:30 | XMS_ITS | Encounter Summary ---
Author Organization [facility] Address [address] [place] [address] Care Team Providers Care Sagger Preparer Name Role Phone Trevor Rolon DO Primary Care Provider [phone] Mc Grant Unavailable [phone] El Agarwal APRN Unavailable [phone] Reason for Visit * Consultation (Routine) - Closed Specialty Diagnoses / Procedures Referred By Truong bella Referred To Contact Transplant Diagnoses End-stage liver disease (CMS/HCC) Kaela Khan MD [address] [facility] [address] [place] [address] Phone: tel: fax: [facility] [address] [place] [address] Phone: tel: fax: Referral ID Status Reason Start Date Expiration Date V isits Requested Visits Authorized [id number] Closed Specialty Services Required 04/09/2025 10/09/2026 1 1 Encounter Details Date Type Department Care Team (Late st Contact Info) Description 05/18/2025 11:30 AM EST Social Work [facility] [address] [place] [address] [place] [address] Social History Tobacco Use Types Packs/Day Years [...] 05/18/2025 11:30 AM EST Identifying Information Name: Trudy Peña : 68 Assessment date: 05/18/25 Transplant type: Liver Txp Eval People present at assessment: Pt and sister Emelia Newby Interlocking Installer: Madyson Sarabia Trudy Peña is a 54 y.o. 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 She is being evaluated for a liver transplant. Primary language: Mauritian Oriental Orthodox/spirituality: Yazdanism Do you have any confucianism, ethical or personal objections to accepting blood products, surgery and/or transplant? No Citizenship Where were you born? [place] Family Background and Supportive Relationships Parental information: Sibling information: Sister Emelia Newby ([phone]) and 3 brothers Jorge, Horacio, Trevor. Pt lives with sister. Brother lives a distance from pt. Children: Dtr Clementina Peña ([phone]) is 31 y/o in [place]. Marital/relationship status: Household composition: Pt has her own house where she lives alone, but has been staying with sisterin her home for the last month. Support / Caregiver Plans Who will be your primary caregiver? Sister Emelia Contact #: [phone] Health status & availability: Good health, has [...] to names sister and dtr and joint HCS. Home Environment Living situation: Private Home 1 level Rent or Own? Rent ($650) Pt lives for free. Utilities: water source: city, Electricity: yes, Type of Heat: Electric Number of steps to enter home: 3 JOHAN Are bed and bath are on the same level? yes Local Housing Is local housing required? Pt lives in [place]. So she would be required to stay local post txp. Pt has been staying with her sister for the past month, and plans to stay with her post txp. Sister livers in [place], which is 45 min from txp center. Education / Employment / Financial Situation What is your highest level of education? Bachelors degree with some graduate credits Are you able to read and write? yes What type of work do you do? 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 Pt was forced to quit due to [...] 2022 Do you have short term or [place] health care facility disability available thru work? No Financial Status What is your source of income? Pt draws SSDI-$964/month Is current income adequate to meet monthly needs and current medications? no Car insurance is not affordable ($300/month) bc she let insurance lapse when she was unable to drive. Now she's unable to afford to maintain it. Pt reports A[employer] Medicaid was also provided a meal plan [...] Name Rel Member # Group # Aetna [facility] Medicaid Trudy Peña Pt [id number] What is your yearly insurance deductible? $0 [...] Medical Situation [facility] When did you become aware of [...] PCP has been Trevor Rolon DO in [place]. Starting 06/04/25 she will begin seeing PCP Dr. Tadeo Luis in [place]. GI Physician Mc Grant at [facility]. What has your relationship been like [...] Prescribed Lyrica by her previous Neurologist in [place]. She's prescribed Oxycodone and Lyrica by [facility] for back/spine pain. Generalized Anxiety [...] Pt reports and occasional roger at a [employer] restaurant a couple of drinks on a [...] Net, pt has an open court case [place] courts. Pt will look further into why this is still open, as it was an old traffic violation. Advised to check with the courts to see if there may still be fine payments pending. 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 Pt was [...] recommends the following. -HAYDEE recommends evaluation by Psychiatry for treatment of anxiety and depression, as she doesn't feel her current medication regimen is helpful in managing her depression. (SW to make referral) -HAYDEE recommends pt to become established in mental health therapy and provide documentation of this to SW once established. -HAYDEE recommends pt to demonstrate ongoing compliance with all medications, including Lactulose. -HAYDEE recommends pt to contact [place] and [place] courts to resolve all pending legal matters in [place]counties. -HAYDEE recommends pt to talk with family to determine secondary caregiver plan in the event that sister becomes unable to care for her. (This is not required for listing). Please add SW to next clinic visit. documented in this encounter Plan of Treatment Upcoming Encounters Date Type Department Care Team (Late st Contact Info) Description 07/17/2025 8:45 AM EST Clinical Support [facility] [place] [address] [facility] [address] [place] [address] 07/17/2025 10:30 AM EST Office Visit [facility] [place] [address] [place] [address] Nj Johns MD [address] [facility] [address] [place] [address] documented as of this encounter Visit Diagnoses [...] as of this encounter Care Teams Sagger Preparer Relationship Specialty Start Date End Date Trevor Rolon DO [address] [facility] [address] [place] [address] PCP - General 11/22/20 06/03/25 Mc Grant [address] [facility] [address] [place] [address] Referring Physician Gastroenterology 02/21/24 El Agarwal APRN [id number] Referring Physician Gastroenterology 03/21/25 documented as of this encounter
--- OUTSIDE RECORDS SUMMARY | 2025-05-18 13:00 | XMS_ITS | Encounter Summary ---
Author Organization [facility] Address [address] [place] [address] Care Team Providers Care Water Pipe Installer Name Role Phone Trevor Rolon DO Primary Care Provider [phone] Mc Grant Unavailable El Agarwal APRN Unavailable Encounter Details Date Type Department Care Team (Latest Contact Info) Description 05/18/2025 1:00 PM EST - 05/18/2025 1:29 PM [facility] Hospital Encounter [facility] [address] [place] [address] End-stage liver disease (CMS/HCC) Discharge Disposition: Home or Self Care Social [...] you got the money to buy more. Sometimes true Within the past 12 months, t he food you bought just didn't last and you didn't have money to get more. Sometimes true PRAPARE - Transportation Answer Date Re corded [...] pay the mortgage or rent on time? Yes 05/25/2025 In the past 12 months, how m any times have you moved where you were living? 1 05/25/2025 At any time in the past 12 m [facility], were you homeless or living in a custodial (including now)? No 05/25/2025 [facility] Utilities Answer Date Recorded In the past 12 months has th e [employer], gas, oil, or water [employer] threatened to shut off services in your [...] pain). 03/24/2022 ergocalciferol (Vitamin D-2) 1.25 MG (51622 UT) capsule Take 1 capsule by mouth [...] Take 1 tablet by mouth every morning. zinc sulfate (Zincate) 220 (50 Zn) MG capsuleIndication s:End-stage liver disease (CMS/HCC) Take 1 capsule by mouth 2 times a day. 240 capsule 2 05/18/2025 6 baclofen (Lioresal) 10 MG tablet Take 1 tablet by mouth nightly. 30 tablet 04/03/2025 5 bumetanide (Bumex) 1 MG tablet Take 2 tablets by mouth daily. 08/18/2022 5 desvenlafaxine (Pristiq) 100 MG 24 hr tablet Take 50 mg by mouth daily. 5 diphenhydrAMINE (Benadryl) 50 MG tablet - 50 mg PO [address] prior to [address] scan on 05-25-25 1 tablet 05/17/2025 5 FeroSul 325 (65 Fe) MG tablet Take 1 tablet by mouth daily. 04/27/2023 5 hydrOXYzine pamoate (Vistaril) 25 MG capsule Take [...] sugar (for BG > 150). 09/01/2024 5 potassium chloride CR (Klor-Con M20) 20 MEQ ER tablet Take 1 tablet by mouth 2 times a day. 08/04/2022 5 predniSONE (Deltasone) 50 MG tablet 50 mg PO, 13, 7, and [address] Scan on 05-25-25. 3 tablet 05/18/2025 5 pregabalin (Lyrica) 25 MG capsule Take [...] Take 1 tablet by mouth nightly. 08/18/2022 5 spironolactone (Aldactone) 100 MG tablet Take 1 tablet by mouth 2 times a day. 09/08/2024 documented as of this encounter Plan of Treatment Upcoming Encounters Date Type Department Care Team (Late st Contact Info) Description 07/17/2025 8:45 AM EST Clinical Support [facility] [place] [address] [place] [address] 07/17/2025 10:30 AM EST Office Visit [facility] [place] [address] [place] [address] Nj Johns MD [address] [place] [address] documented as of this encounter Procedures Procedure Name Priority Date/Time Associated Diagnosis Comments DEXA BONE DENSITY Routine 05/18/2025 1:5 1 PM EST End-stage liver disease (CMS/HCC) documented in this encounter Results * Dexa Bone Density (05/18/2025 1:51 PM EST) Anatomical Region Laterality Modality L-spine Nuclear Medicine Impressions 05/18/2025 2:09 PM EST Low bone mass/osteopenia. Using the WHO fracture risk assessment model (FRAX), the highest calculated 10- year probabilities for major osteoporosis-related fracture and hip fracture are 8.5% and 0.7%, respectively. According to National Osteoporosis Foundation and WHO guidelines, treatment for osteoporosis is recommended for those with 20% or higher risk of major fracture or a 3% or higher risk of hip fracture. RECOMMENDATIONS: Based on low bone mass and increased risk of fracture, FDA-approved medical therapy beyond supplemental calcium and vitamin D could be considered. Risk factor modification, as appropriate, is recommended. Timing of follow-up DXA should be determined based on clinical assessment, and may be appropriate in two years to evaluate change in BMD. A follow-up DXA should be performed on the same DXA scanner to allow for direct comparison and calculation of change in BMD. CRITICAL RESULT: No. COMMUNICATION: Per this written report. Drafted by Julissa Roldan MD on 05/18/2025 2:07 PM Final report signed by Julissa Roldan MD on 05/18/2025 2:09 PM Narrative 05/18/2025 2:09 PM EST CLINICAL INDICATION: Female who is 54 years of age. Liver Transplant Evaluation. Screening for osteoporosis. TECHNIQUE: Bone mineral density (BMD) testing of two or more of the following sites: lumbar spine, left hip, right hip, left forearm, right forearm was performed using a [employer] Horizon A Dual-energy X-ray Absorptiometry (DXA) scanner (software version 13.6.1.2). Sites may be excluded because of surgical hardware, prosthesis, or other source of artifact. COMPARISON/CORRELATION: No comparison. No relevant correlative imaging. FINDINGS: The technical quality is acceptable. For post-menopausal females, the T-scores are used in the assessment. Based on The World Health Organization classification system: Normal bone mass is defined as BMD above normal or equal to/less than one standard deviation below normal; Low bone mass/osteopenia is defined as BMD more than one standard deviation below normal, but less than 2.5 standard deviations below normal; Osteoporosis is defined as BMD equal to/more than 2.5 standard deviations below normal. Lumbar Spine: The BMD of L1-L4 is 0.923 g/cm2, corresponding to a T-score of -1.1. There are sclerotic changes related to osteoarthritis and/or scoliosis that could falsely elevate the measured BMD. Given a greater than 1.0 difference in T-scores between adjacent vertebrae, L1-L2 is also analyzed, and the BMD is 0.799 g/cm2, corresponding to a T-score of -1.6. Left Hip: The BMD of the femoral neck is 0.728 g/cm2, corresponding to a T-score of -1.1 and the BMD of the total hip is 0.922 g/cm2, corresponding to a T-score of -0.2. Right Hip: The BMD of the femoral neck is 0.684 g/cm2, corresponding to a T- score of -1.5 and the BMD of the total hip is 0.886 g/cm2, corresponding to a T-score of -0.5. Procedure Note Dori Roldan MD - 05/18/2025 CLINICAL INDICATION: Female who is 54 years of age. Liver Transplant Evaluation. Screening forosteoporosis. TECHNIQUE: Bone mineral density (BMD) testing of two or more of the following sites:lumbar spine, left hip, right hip, left forearm, right forearm wasperformed using a [employer] Horizon A Dual-energy X-ray Absorptiometry (DXA)scanner (software version 13.6.1.2). Sites may be excluded because ofsurgical hardware, prosthesis, or other source of artifact. COMPARISON/CORRELATION: No comparison. No relevant correlative imaging. FINDINGS: The technical quality is acceptable. For post-menopausal females, the T-scores are used in the assessment.Based on The World Health Organization classification system: Normal bone mass is defined as BMD above normal or equal to/less than onestandard deviation below normal; Low bone mass/osteopenia is defined as BMD more than one standarddeviation below normal, but less than 2.5 standard deviations belownormal; Osteoporosis is defined as BMD equal to/more than 2.5 standard deviationsbelow normal. Lumbar Spine: The BMD of L1-L4 is 0.923 g/cm2, corresponding to a T-scoreof -1.1. There are sclerotic changes related to osteoarthritis and/orscoliosis that could falsely elevate the measured BMD. Given a greaterthan 1.0 difference in T-scores between adjacent vertebrae, L1-L2 is alsoanalyzed, and the BMD is 0.799 g/cm2, corresponding to a T-score of-1.6. Left Hip: The BMD of the femoral neck is 0.728 g/cm2, corresponding to aT-score of -1.1 and the BMD of the total hip is 0.922 g/cm2, correspondingto a T-score of - 0.2. Right Hip: The BMD of the femoral neck is 0.684 g/cm2, corresponding to aT-score of -1.5 and the BMD of the total hip is 0.886 g/cm2, correspondingto a T-score of - 0.5. IMPRESSION: Low bone mass/osteopenia. Using the WHO fracture risk assessment model (FRAX), the highestcalculated 10- year probabilities for major osteoporosis-related fractureand hip fracture are 8.5% and 0.7%, respectively. According to NationalOsteoporosis Foundation and WHO guidelines, treatment for osteoporosis isrecommended for those with 20% or higher risk of major fracture or a 3% orhigher risk of hip fracture. RECOMMENDATIONS: Based on low bone mass and increased risk of fracture, FDA-approvedmedical therapy beyond supplemental calcium and vitamin D could beconsidered. Risk factor modification, as appropriate, is recommended. Timing of follow-up DXA should be determined based on clinical assessment,and may be appropriate in two years to evaluate change in BMD. A follow-upDXA should be performed on the same DXA scanner to allow for directcomparison and calculation of change in BMD. CRITICAL RESULT: No. COMMUNICATION: Per this written report. Drafted by Julissa Roldan MD on 05/18/2025 2:07 PM Final report signed by Julissa Roldan MD on 05/18/2025 2:09 PM Kaela Khan MD IMG DXA PROCEDURES Final Result documented in this encounter [...] documented as of this encounter Care Teams Water Pipe Installer Relationship Specialty Start Date End Date Trevor Rolon DO [address] [facility] [address] [place] [address] PCP - General 11/22/20 06/03/25 Mc Grant [address] [facility] [address] [place] [address] Referring Physician Gastroenterology 02/21/24 El Agarwal APRN [id number] Referring Physician Gastroenterology 03/21/25 documented as of this encounter
--- OUTSIDE RECORDS SUMMARY | 2025-05-18 13:30 | XMS_ITS | Encounter Summary ---
Author Organization [facility] Address [address] [place] [address] Care Team Providers Care School Examiner Name Role Phone Trevor Rolon DO Primary Care Provider [phone] Mc Grant Unavailable El Agarwal APRN Unavailable [phone] Encounter Details Date Type Department Care Team (Latest Contact Info) Description 05/18/2025 1:30 PM [facility] Hospital Encounter [facility] [address] [place] [address] End-stage liver disease (CMS/HCC) Discharge Disposition: Home or Self Care Social History Tobacco Use Types Packs/Day Years Used Date Smoking Tobacco: Former Cigarettes 0.1 10.6 2 02/2022 Passive Smoke Exposure: Past Smokeless Tobacco: [...] any time in the past 12 m [facility], were you homeless or living in a fci (including now)? No 05/25/2025 [facility] Utilities Answer Date Recorded In the past 12 months has th e [employer], gas, oil, or water [employer] threatened to shut off services in your [...] pain). 03/24/2022 ergocalciferol (Vitamin D-2) 1.25 MG (56806 UT) capsule Take 1 capsule by mouth [...] Description 07/17/2025 8:45 AM EST Clinical Support [facility] [place] [address] [place] [address] 07/17/2025 10:30 AM EST Office Visit [facility] [address] [place] [address] Nj Johns MD [address] [place] [address] documented as of this encounter Procedures Procedure Name Priority Date/Time Associated Diagnosis Comments XR CHEST 2 VIEWS Routine 05/18/2025 2:20 PM EST End-stage liver disease (CMS/HCC) documented in this encounter Results * XR Chest 2 Views (05/18/2025 2:20 PM EST) Anatomical Region Laterality Modality Chest Digital Radiogra phy Impressions 05/18/2025 2:54 PM EST No acute cardiopulmonary finding. CRITICAL RESULT: No. COMMUNICATION: Per this written report. By electronically signing this report, I, the attending physician, attest that I have personally reviewed the images/data for the above examination(s) and agree with the final edited report. Drafted by Adolfo Howard MD on 05/18/2025 2:24 PM Final report signed by Shady Lebron MD on 05/18/2025 2:54 PM Narrative 05/18/2025 2:54 PM EST CLINICAL INDICATION: Liver Transplant Evaluation TECHNIQUE: XR CHEST 2 VIEWS COMPARISON: 11/05/2020 CT, 09/08/2024 radiograph FINDINGS: Unchanged cardiac silhouette and mediastinal contours. No pleural effusion. No airspace consolidation. No pneumothorax. Procedure Note Shady Lebron MD - 05/18/2025 CLINICAL INDICATION: Liver Transplant Evaluation TECHNIQUE: XR CHEST 2 VIEWS COMPARISON: 11/05/2020 CT, 09/08/2024 radiograph FINDINGS: Unchanged cardiac silhouette and mediastinal contours. No pleuraleffusion. No airspace consolidation. No pneumothorax. IMPRESSION: No acute cardiopulmonary finding. CRITICAL RESULT: No. COMMUNICATION: Per this written report. By electronically signing this report, I, the attending physician, jonathan I have personally reviewed the images/data for the aboveexamination(s) and agree with the final edited report. Drafted by Adolfo Howard MD on 05/18/2025 2:24 PM Final report signed by Shady Lebron MD on 05/18/2025 2:54 PM us Kaela Khan MD IMG XR PROCEDURES Final R esult documented in this encounter Visit Diagnoses Diagnosis [...] documented as of this encounter Care Teams School Examiner Relationship Specialty Start Date End Date Trevor Rolon DO [address] [facility] [address] [place] [address] PCP - General 11/22/20 06/03/25 Mc Grant [address] [facility] [address] [place] [address] Referring Physician Gastroenterology 02/21/24 El Agarwal APRN [id number] Referring Physician Gastroenterology 03/21/25 documented as of this encounter
--- OUTSIDE RECORDS SUMMARY | 2025-05-18 13:30 | XMS_ITS | Encounter Summary ---
Author Organization [facility] Address [address] [place] [address] Care Team Providers Care Olive Knocker Name Role Phone Trevor Rolon DO Primary Care Provider [phone] Mc Grant Unavailable El Agarwal APRN Unavailable [phone] Encounter Details Date Type Department Care Team (Latest Contact Info) Description 05/18/2025 1:30 PM [facility] Hospital Encounter [place] [facility] Rad[facility] [address], [address] [place] [address] End-stage liver disease (CMS/HCC) Discharge [...] any time in the past 12 m [facility], were you homeless or living in a detention (including now)? No 05/25/2025 [facility] Utilities Answer Date Recorded In the past 12 months has th e [employer], gas, oil, or water [employer] threatened to shut off services in your [...] pain). 03/24/2022 ergocalciferol (Vitamin D-2) 1.25 MG (98827 UT) capsule Take 1 capsule by mouth [...] Description 07/17/2025 8:45 AM EST Clinical Support [facility] Transplant [place] [address] [place] [address] 07/17/2025 10:30 AM EST Office Visit [facility] [address] [place] [address] Nj Johns MD [address] [place] [address] documented as of this encounter Procedures Procedure Name Priority Date/Time Associated Diagnosis Comments XR PANOREX Routine 05/18/2025 2:29 PM EST End-stage liver disease (CMS/HCC) documented in this encounter Results * XR Panorex (05/18/2025 2:29 PM EST) Anatomical Region Laterality Modality Jaw region Panoramic X-Ray Impressions 05/18/2025 2:34 PM EST Edentulous. No abscess. CRITICAL RESULT: No. COMMUNICATION: Per this written report. Drafted by Cameron Jacobs MD on 05/18/2025 2:34 PM Final report signed by Cameron Jacobs MD on 05/18/2025 2:34 PM Narrative 05/18/2025 2:34 PM EST CLINICAL INDICATION: Liver Transplant Evaluation TECHNIQUE: XR PANOREX COMPARISON: None. FINDINGS: Patient is edentulous. No abscess noted. Temporal mandibular joints are unremarkable. Procedure Note Cameron Jacobs MD - 05/18/2025 CLINICAL INDICATION: Liver Transplant Evaluation TECHNIQUE: XR PANOREX COMPARISON: None. FINDINGS: Patient is edentulous. No abscess noted. Temporal mandibular joints areunremarkable. IMPRESSION: Edentulous. No abscess. CRITICAL RESULT: No. COMMUNICATION: Per this written report. Drafted by Cameron Jacobs MD on 05/18/2025 2:34 PM Final report signed by Cameron Jacobs MD on 05/18/2025 2:34 PM us Kaela Khan MD IMG XR [...] documented as of this encounter Care Teams Olive Knocker Relationship Specialty Start Date End Date Trevor Rolon DO [address] [facility] [address] [place] [address] PCP - General 11/22/20 06/03/25 Mc Grant [address] [facility] [address] [place] [address] Referring Physician Gastroenterology 02/21/24 El Agarwal APRN [id number] Referring Physician Gastroenterology 03/21/25 documented as of this encounter
--- OUTSIDE RECORDS SUMMARY | 2025-05-18 14:00 | XMS_ITS | Encounter Summary ---
Author Organization [facility] Address [address] [place] [address] Care Team Providers Care Sugar Controller Name Role Phone Trevor Rolon DO Primary Care Provider [phone] Mc Grant Unavailable [phone] El Agarwal APRN Unavailable Reason for Visit * Consultation (Routine) - Closed Specialty Diagnoses / Procedures Referred By Truong bella Referred To Contact Transplant Diagnoses End-stage liver disease (CMS/HCC) Kaela Khan MD [address] [facility] [address] [place] [address] Phone: tel: fax: [facility] [place] [address] [place] [address] Phone: tel: fax: Referral ID Status Reason Start Date Expiration Date V isits Requested Visits Authorized [id number] Closed Specialty Services Required 04/09/2025 10/09/2026 1 1 Encounter Details Date Type Department Care Team (Late st Contact Info) Description 05/18/2025 2:00 PM EST Pharmacist Visit [facility] [place] [address] [facility] [address] [place] [address] Jemma Mancuso, PharmD [address] [place] [address] Encounter for pre-transplant evaluation for liver transplant [...] Description 07/17/2025 8:45 AM EST Clinical Support [facility] [place] [address] [place] [address] 07/17/2025 10:30 AM EST Office Visit [facility] [place] [address] [place] [address] Nj Johns MD [address] [place] [address] documented as of this encounter Visit Diagnoses [...] documented as of this encounter Care Teams Sugar Controller Relationship Specialty Start Date End Date Trevor Rolon DO [address] [facility] [address] [place] [address] PCP - General 11/22/20 06/03/25 Mc Grant [address] [facility] [address] [place] [address] Referring Physician Gastroenterology 02/21/24 El Agarwal APRN [id number] Referring Physician Gastroenterology 03/21/25 documented as of this encounter
--- OUTSIDE RECORDS SUMMARY | 2025-05-22 10:40 | XMS_ITS | Encounter Summary ---
Author Organization [facility] Address [address] 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 [address] Phone: tel: Referral ID Status Reason Start Date Expiration Date Visits Re quested Visits Authorized [id number] 1 1 Encounter Details Date Type Department Care Team (Latest Contact Info) Description 05/22/2025 10:40 AM EST - 05/22/2025 11:59 PM [facility] Hospital Encounter [place] [facility] Radiology [address], [address] [place] [address] Lumbar radiculopathy; Cervical spondylosis with myelopathy Discharge [...] any time in the past 12 m [facility], were you homeless or living in a penitentiary (including now)? No 05/28/2025 [facility] Utilities Answer Date Recorded In [...] pain). 03/24/2022 ergocalciferol (Vitamin D-2) 1.25 MG (46429 UT) capsule Take 1 capsule by mouth [...] (for BG > 150). 09/01/2024 5 ondansetron ODT (Zofran-ODT) 8 MG disintegrating tablet Dissolve 1 tablet on the tongue every 8 hours as needed for nausea or vomiting. 5 potassium chloride CR (Klor-Con M20) 20 [...] mouth 2 times a day. 09/08/2024 5 documented as of this encounter Plan of Treatment Upcoming Encounters Date Type Department Care Team (Late st Contact Info) Description 07/17/2025 8:45 AM EST Clinical Support [facility] [address] [place] [address] 07/17/2025 10:30 AM EST Office Visit [facility] [place] [address] [place] [address] Nj Johns MD [address] [facility] [address] [place] [address] documented as of this encounter Procedures Procedure [...] and mild C7-T1 disc space narrowing. Moderate C7-S7obrje arthropathy. No subluxation between flexion and extensionradiographs. [...] Grant Briseno MD on 05/22/2025 12:08 PM us Sivan Isaac PASSENGER SOLICITOR, DNP IMG XR PROCEDURES Jennifer l Result [...] and mild C7-T1 disc space narrowing. Moderate C7-K3lpvtv arthropathy. No subluxation between flexion and extensionradiographs. [...] MD on 05/22/2025 12:08 PM Sivan Isaac APRN, DNP IMG XR PROCEDURES Jennifer l Result [...] documented as of this encounter Care Teams Hat Presser Relationship Specialty Start Date End Date Trevor Rolon DO [address] [place] [address] PCP - General 11/22/20 06/03/25 Mc Grant [address] [facility] [address] [place] [address] Referring Physician Gastroenterology 02/21/24 El Agarwal APRN [id number] Referring Physician Gastroenterology 03/21/25 documented as of this encounter
--- OUTSIDE RECORDS SUMMARY | 2025-05-22 11:15 | XMS_ITS | Encounter Summary ---
Author Organization [facility] Address [address] [place] [address] Care Team Providers Care Custom Protection Officer Name Role Phone Trevor Rolon DO Primary Care Provider [phone] Mc Grant Unavailable [phone] El Agarwal APRN Unavailable [phone] Reason for Referral * Consultation (Routine) - Authorized Specialty Diagnoses / Procedures Referred By Contac t Referred To Contact Pain Medicine Diagnoses Lumbar radiculopathy Nigel Recinos MD [address] [place] [address] Phone: tel: fax: Referral ID Status Reason Start Date Expiration Date Visits Requested Visits Authorized [id number] Authorized Specialty Services Required 11/21/2026 1 1 Scheduling Instructions Please send patient with referral [facility] * Imaging (Routine) - Pending Review Specialty Diagnoses / Procedures Referred By Contac t Referred To Contact Radiology Diagnoses Lumbar radiculopathy Procedures MR Thoracic Spine wo IV Contrast Nigel Recinos MD [address] [facility] [place] [id number] Phone: tel: fax: Referral ID Status Reason Start Date Expiration Date V isits Requested Visits Authorized [id number] Pending Review 05/22/2025 11/21/2026 1 1 Reason for Visit * Auth/Cert (Routine) Specialty Diagnoses / Procedures Referred By Contac t Referred To Contact Diagnoses Hyponatremia 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 [address] Phone: tel: Referral ID Status Reason Start Date Expiration Date Visits Re quested Visits Authorized [id number] 1 1 Encounter Details Date Type Department Care Team (Late st Contact Info) Description 05/22/2025 11:15 AM EST Consult [place] [facility] [address] [place] [address] Nigel Recinos MD [id number] [place] [address] Lumbar radiculopathy (Primary Dx); Cervical spondylosis [...] 12:38 PM EST documented in this encounter Functional Status * BP Answer Date of Assessment Author 122/64 05/22/2025 12:38 PM Valerio Aguilar * Height Answer Date of Assessment Author 67 05/22/2025 12:38 PM Valerio Aguilar * Weight Answer Date of Assessment Author 2960 05/22/2025 12:38 PM Valerio Aguilar * BMI (Calculated) Answer Date of Assessment Author 29 05/22/2025 12:38 PM Valerio Aguilar * Percent Excess Weight Loss Answer Date of Assessment Author 0 05/22/2025 12:38 PM Valerio Aguilar * Total Weight Change Percent Answer Date of Assessment Author 2222 05/22/2025 12:38 PM Valerio Aguilar * Weight Change Since Preop Answer Date of Assessment Author 83.9 05/22/2025 12:38 PM Valerio Aguilar * Initial Excess Weight Answer Date of Assessment Author -61.24 05/22/2025 12:38 PM Valerio Aguilar * IBW in lbs (Bariatric) Answer Date of Assessment Author 135 05/22/2025 12:38 PM Valerio Aguilar * Weight Change Since Last Visit Answer Date of Assessment Author 83.9 05/22/2025 12:38 PM Valerio Aguilar * IBW in kg (Bariatric) Answer Date of Assessment Author 61.24 05/22/2025 12:38 PM Valerio Aguilar * Percent of IBW Answer Date of Assessment Author 4,833.44 05/22/2025 12:38 PM Valerio Aguilar * EBW (kg) Answer Date of Assessment Author 2,958.26 05/22/2025 12:38 PM Valerio Aguilar * EBW (lbs) Answer Date of Assessment Author 2,951.56 05/22/2025 12:38 PM Valerio Aguilar * Weight Change 24 hrs Answer Date of Assessment Author -.385 05/22/2025 12:38 PM Valerio Aguilar * Depression Screening Question Answer Date of Assessment Author Will the patient answer the depression risk questions? No 05/22/2025 12:43 PM Valerio Adler * BSA (Calculated - sq m) Answer Date of Assessment Author 1.99 05/22/2025 12:38 PM Valerio Aguilar * BMI (Calculated) Answer Date of Assessment Author 28.97 05/22/2025 12:38 PM Valerio Aguilar * IBW/kg (Calculated) Male Answer Date of Assessment Author 66.1 05/22/2025 12:38 PM Valerio Aguilar * IBW/kg (Calculated) Female Answer Date of Assessment Author 61.6 05/22/2025 12:38 PM Valerio Aguilar * IBW/kg (Calculated) Answer Date of Assessment Author 61.6 05/22/2025 12:38 PM Valerio Aguilar * Weight in (lb) to have BMI = 25 Answer Date of Assessment Author 159.3 05/22/2025 12:38 PM Valerio Aguilar * BMI (Calculated) Answer Date of Assessment Author 29 05/22/2025 12:38 PM Valerio Aguilar * Percent Excess Weight Loss Answer Date of Assessment Author 0 05/22/2025 12:38 PM Valerio Aguilar * Weight Change Since Preop Answer Date of Assessment Author 83.91 05/22/2025 12:38 PM Valerio Aguilar * Initial Excess Weight Answer Date of Assessment Author -61.24 05/22/2025 12:38 PM Valerio Aguilar * IBW in kg (Bariatric) Answer Date of Assessment Author 61.24 05/22/2025 12:38 PM Valerio Aguilar * IBW in lb (Bariatric) Answer Date of Assessment Author 135 05/22/2025 12:38 PM Valerio Aguilar * Weight Change Since Last Visit Answer Date of Assessment Author 83.91 05/22/2025 12:38 PM Valerio Aguilar * Percent of IBW Answer Date of Assessment Author 137.04 05/22/2025 12:38 PM Valerio Aguilar * EBW (kg) Answer Date of Assessment Author 22.66 05/22/2025 12:38 PM Valerio Aguilar * EBW (lb) Answer Date of Assessment Author 50 05/22/2025 12:38 PM Valerio Aguilar * Difference in Weight Since Last Visit Answer Date of Assessment Author -0.38 05/22/2025 12:38 PM Valerio Aguilar * IBW/kg (Calculated) Answer Date of Assessment Author 61.6 05/22/2025 12:38 PM Valerio Aguilar * Adult Low Range Vt 6mL/kg Answer Date of Assessment Author 369.6 05/22/2025 12:38 PM Valerio Aguilar * Adult Moderate Range Vt 8mL/kg Answer Date of Assessment Author 492.8 05/22/2025 12:38 PM Valerio Aguilar * Adult High Range Vt 10mL/kg Answer Date of Assessment Author 616 05/22/2025 12:38 PM Valerio Aguilar * Pain Score Answer Date of Assessment Author 6 05/22/2025 12:40 PM Valerio Aguilar * Pain Screening/Additional Assessments Question Answer Date of Assessment Author Pain Screening/Assessments Pain Screening 05/22/2025 1 2:40 PM Valerio Adler * Pain Screening Answer Date of Assessment Author 0-10 05/22/2025 12:40 PM Valerio Aguilar * BP Answer Date of Assessment Author 122/64 05/22/2025 12:38 PM Valerio Aguilar * Height Answer Date of Assessment Author 67 05/22/2025 12:38 PM Valerio Aguilar * Weight Answer Date of Assessment Author 2960 05/22/2025 12:38 PM Valerio Aguilar * BSA (Calculated - sq m) Answer Date of Assessment Author 1.99 05/22/2025 12:38 PM Valerio Aguilar * BMI (Calculated) Answer Date of Assessment Author 28.97 05/22/2025 12:38 PM Valerio Aguilar * Weight in (lb) to have BMI = 25 Answer Date of Assessment Author 159.3 05/22/2025 12:38 PM Valerio Aguilar * Pain Score Answer Date of Assessment Author 6 05/22/2025 12:40 PM Valerio Aguilar documented as of this encounter Mental Status * BP Answer Entry Date Author 122/64 05/22/2025 12:38 PM Valerio Aguilar * Height Answer Entry Date Author 67 05/22/2025 12:38 PM Valerio Aguilar * Weight Answer Entry Date Author 2960 05/22/2025 12:38 PM Valerio Aguilar * BMI (Calculated) Answer Entry Date Author 29 05/22/2025 12:38 PM Valerio Aguilar * Percent Excess Weight Loss Answer Entry Date Author 0 05/22/2025 12:38 PM Valerio Aguilar * Total Weight Change Percent Answer Entry Date Author 2222 05/22/2025 12:38 PM Valerio Aguilar * Weight Change Since Preop Answer Entry Date Author 83.9 05/22/2025 12:38 PM Valerio Aguilar * Initial Excess Weight Answer Entry Date Author -61.24 05/22/2025 12:38 PM Valerio Aguilar * IBW in lbs (Bariatric) Answer Entry Date Author 135 05/22/2025 12:38 PM Valerio Aguilar * Weight Change Since Last Visit Answer Entry Date Author 83.9 05/22/2025 12:38 PM Valerio Aguilar * IBW in kg (Bariatric) Answer Entry Date Author 61.24 05/22/2025 12:38 PM Valerio Aguilar * Percent of IBW Answer Entry Date Author 4,833.44 05/22/2025 12:38 PM Valerio Aguilar * EBW (kg) Answer Entry Date Author 2,958.26 05/22/2025 12:38 PM Valerio Aguilar * EBW (lbs) Answer Entry Date Author 2,951.56 05/22/2025 12:38 PM Valerio Aguilar * Weight Change 24 hrs Answer Entry Date Author -.385 05/22/2025 12:38 PM Valerio Aguilar * Depression Screening Question Answer Entry Date Author Will the patient answer the depression risk questions? No 05/22/2025 12:43 PM Valerio Adler * BSA (Calculated - sq m) Answer Entry Date Author 1.99 05/22/2025 12:38 PM Valerio Aguilar * BMI (Calculated) Answer Entry Date Author 28.97 05/22/2025 12:38 PM Valerio Aguilar * IBW/kg (Calculated) Male Answer Entry Date Author 66.1 05/22/2025 12:38 PM Valerio Aguilar * IBW/kg (Calculated) Female Answer Entry Date Author 61.6 05/22/2025 12:38 PM Valerio Aguilar * IBW/kg (Calculated) Answer Entry Date Author 61.6 05/22/2025 12:38 PM Valerio Aguilar * Restart Pain Assessment Timer Answer Entry Date Author Yes 05/22/2025 12:40 PM Valerio Aguilar * Weight in (lb) to have BMI = 25 Answer Entry Date Author 159.3 05/22/2025 12:38 PM Valerio Aguilar * BMI (Calculated) Answer Entry Date Author 29 05/22/2025 12:38 PM Valerio Aguilar * Percent Excess Weight Loss Answer Entry Date Author 0 05/22/2025 12:38 PM Valerio Aguilar * Weight Change Since Preop Answer Entry Date Author 83.91 05/22/2025 12:38 PM Valerio Aguilar * Initial Excess Weight Answer Entry Date Author -61.24 05/22/2025 12:38 PM Valerio Aguilar * IBW in kg (Bariatric) Answer Entry Date Author 61.24 05/22/2025 12:38 PM Valerio Aguilar * IBW in lb (Bariatric) Answer Entry Date Author 135 05/22/2025 12:38 PM Valerio Aguilar * Weight Change Since Last Visit Answer Entry Date Author 83.91 05/22/2025 12:38 PM Valerio Aguilar * Percent of IBW Answer Entry Date Author 137.04 05/22/2025 12:38 PM Valerio Aguilar * EBW (kg) Answer Entry Date Author 22.66 05/22/2025 12:38 PM Valerio Aguilar * EBW (lb) Answer Entry Date Author 50 05/22/2025 12:38 PM Valerio Aguilar * Difference in Weight Since Last Visit Answer Entry Date Author -0.38 05/22/2025 12:38 PM Valerio Aguilar * IBW/kg (Calculated) Answer Entry Date Author 61.6 05/22/2025 12:38 PM Valerio Aguilar * Adult Low Range Vt 6mL/kg Answer Entry Date Author 369.6 05/22/2025 12:38 PM Valerio Aguilar * Adult Moderate Range Vt 8mL/kg Answer Entry Date Author 492.8 05/22/2025 12:38 PM Valerio Aguilar * Adult High Range Vt 10mL/kg Answer Entry Date Author 616 05/22/2025 12:38 PM Valerio Aguilar * Pain Score Answer Entry Date Author 6 05/22/2025 12:40 PM Valerio Aguilar * Pain Screening Answer Entry Date Author 0-10 05/22/2025 12:40 PM Valerio Aguilar documented in this encounter Miscellaneous Notes * [...] undergone L MARTIN with pain management in [place] however states that due to her Liver transplant candidacy she has moved to [place] and requests re-referral to pain management in [facility]. Denies any recent PT for low back pain. Social History, Medications, and Allergies reviewed and noted below or in HPI Current Scheduled Medications[1] Current Continuous Medications[2] Current PRN Medications[3] Oxycodone-acetaminophen, Povidone iodine, Sulfa drugs, Vortioxetine, and Wound dressing adhesive Physical Exam GEN: well developed, no acute distress Neuro Exam Strength: Delt Bi Tri [employer] RUE: 5/5 5/5 5/5 5/5 LUE: 5/5 [...] MRI T spine, aswell as Referral to [facility] in [place], for injections. We will plan to see patient back in clinic in approximately 6 months to assess her progress. The patient is agreeable to plan of care. They had the opportunity to ask questions, all of which were answered to their satisfaction. I reviewed this patient's history, exam, and imaging with Dr. Ford He guided plan of care for this patient. The total awvw-cw-mqpf time spent on this visit was greater than 30 minutes, with the majority (>50%) of the time spent in counseling, discussing pathology and management options, and coordination of care. David Power MD PGY-2, Department of neurosurgery [facility] Pager: [phone] Answers submitted by the patient for this [...] Description 07/17/2025 8:45 AM EST Clinical Support [facility] [place] [address] [place] [address] 07/17/2025 10:30 AM EST Office Visit [facility] [place] [address] [place] [address] Nj Johns MD [address] [place] [address] Scheduled Orders Name Type Priority Associated Diagnoses [...] and mild C7-T1 disc space narrowing. Moderate [id number] arthropathy. No subluxation between flexion and extensionradiographs. [...] on 05/22/2025 12:08 PM us Sivan Isaac CORPORATE RECEPTIONIST, DNP IMG XR PROCEDURES Jennifer l Result [...] and mild C7-T1 disc space narrowing. Moderate C7-[id number] arthropathy. No subluxation between flexion and extensionradiographs. [...] on 05/22/2025 12:08 PM us Sivan Isaac CORPORATE RECEPTIONIST, DNP IMG XR PROCEDURES Jennifer l Result [...] documented as of this encounter Care Teams Custom Protection Officer Relationship Specialty Start Date End Date Trevor Rolon DO [address] [facility] [address] [place] [address] PCP - General 11/22/20 06/03/25 Mc Grant [address] [facility] [address] [place] [address] Referring Physician Gastroenterology 02/21/24 El Agarwal APRN [id number] Referring Physician Gastroenterology 03/21/25 documented as of this encounter
--- OUTSIDE RECORDS SUMMARY | 2025-05-24 03:09 | XMS_ITS | Encounter Summary ---
Author Organization [facility] Address [address] 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, hepatic (CMS/HCC) Alison Burns MD [address] [place] [address] Phone: tel: fax: Referral ID Status Reason Start Date Expiration Date V isits Requested Visits Authorized [id number] Authorized 05/31/2025 11/30/2026 1 1 * Consultation (Routine) - Authorized Specialty Diagnoses / Procedures Referred By Truong bella Referred To Contact Gastroenterology Diagnoses 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 Lee pt. Post hospital follow up discharge * Consultation (Routine) - Authorized Specialty Diagnoses / Procedures Referred By Truong bella Referred To Contact Physical Therapy Diagnoses Abnormal electrocardiogram (ECG) (EKG) Abrasion, left knee, initial encounter Alison Burns MD [address] [place] [address] Phone: tel: fax: Referral ID Status Reason Start Date Expiration Date Visits Requested Visits Authorized [id number] Authorized Consult and Treat 05/31/2025 11/30/2026 1 1 * Transplant (Routine) - Pending Review Specialty Diagnoses / Procedures Referred By Truong bella Referred To Contact Transplant Surgery / Transplant Diagnoses 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 Alison Burns MD [address] [place] [address] Phone: tel: fax: [facility] [address] [address] [place] [address] Phone: tel: fax: Referral ID Status Reason Start Date Expiration Date Visits Requested Visits Authorized [id number] Pending Review Specialty Services Required 5 11/23/2026 999 999 Reason for Visit * Reason Comments Abdominal Pain Pt transferred from [facility] for generalized abdominal pain and nausea. Was trasferred here as patient is working on getting on liver transplant list. * Auth/Cert (Routine) Specialty Diagnoses / Procedures Referred By Truong bella Referred To Contact Diagnoses Hyponatremia 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 Decompensation of cirrhosis of liver (CMS/HCC) Sepsis, due to unspecified organism, unspecified whether acute organ dysfunction present Abdominal pain Lisette Quarles MD [address] [place] [address] Phone: tel: fax: [facility] [address] [place] [address] Phone: tel: Referral ID Status Reason Start Date Expiration Date Visits Re quested Visits Authorized [id number] 1 1 Encounter Details Date Type Department Care Team (Latest Contact Info) Description 05/24/2025 3:09 AM EST - 05/31/2025 2:49 PM EST Hospital Encounter [facility] [address] [place] [address] Abdoul Rouse MD [address] [place] [address] Lisette Quarles MD [address] [place] [address] Alison Burns MD [address] [place] [address] Sepsis, due to unspecified organism, unspecified whether acute organ dysfunction present (Primary Dx); Decompensation of cirrhosis of liver (CMS/HCC); Hyponatremia; 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; Encephalopathy, hepatic (CMS/HCC); Abnormal electrocardiogram (ECG) (EKG); Abrasion, left knee, initial encounter Discharge Disposition: Home or Self Care Social [...] afraid of your partner or ex-partner? No 06/04/2025 Within the last year, have y ou been humiliated or emotionally abused in other ways by your partner or ex-partner? No Within the last year, have y ou been kicked, hit, slapped, or otherwise physically hurt by your partner or ex-partner? No 06/04/2025 Within the last year, have y ou been raped or forced to have any kind of sexual activity by your partner or ex-partner? No 06/04/2025 Hunger Vital Sign Answer Date Recorded Within the past 12 months, y ou worried that your food would run out before you got the money to buy more. Never true 06/04/20 25 Within the past 12 months, t he food you bought just didn't last and you didn't have money to get more. Never true 06/04/2025 PRAPARE - Transportation Answer Date Re corded In the past 12 months, has l ack of transportation kept you from medical appointments or from getting medications? No 05/13 In the past 12 months, has l ack of transportation kept you from meetings, work, or from getting things needed for daily living? No 06/04/2025 Housing Stability Vital Sign Answer Matt e Recorded In the last 12 months, was t here a time when you were not able to pay the mortgage or rent on time? Yes 06/04/2025 In the past 12 months, how m any times have you moved where you were living? 0 06/04/2025 At any time in the past 12 m [facility], were you homeless or living in a skilled nursing (including now)? No 06/04/2025 [facility] Utilities Answer Date Recorded In the past 12 months has th e electric, gas, oil, or water company threatened to shut off services in your home? No 06/04/2025 Comments Unknown Sex and Gender Information Value Date Recorded Sex Assigned at Female 03/11/2021 7:37 PM EDT Legal Sex Female 8:49 PM EDT Gender Identity Female 03/11/2021 7:37 PM EDT Sexual Orientation Not on file documented as of this encounter Last Filed Vital Signs Vital Sign Reading Time Taken Comments Blood Pressure 117/72 05/31/2025 11:36 AM EST Pulse 84 05/31/2025 11:36 AM EST Temperature 36.7 C (98.1 F) 05/31/2025 11:36 AM EST Respiratory Rate 16 05/31/2025 11:36 AM EST Oxygen Saturation 97% 05/31/2025 11:36 AM EST Inhaled Oxygen Concentration - - Weight 93.2 kg (205 lb 6.4 oz) 05/31/2025 12:04 PM EST Height 162.6 cm (5' 4.02 ) 05/30/2025 3:00 PM ES T Body Mass Index 35.24 05/30/2025 3:00 PM EST documented in this encounter Functional Status * PT Therapeutic Procedures Time Entry Question Answer Date of Assessment Author Gait Training Time Entry 13 05/31/2025 2:08 PM EST Xiomara Borregoyla Therapeutic Activity Time Entry 33 2:08 PM EST Xiomara Borregoyla * HEENT Question Answer Date of Assessment Author JEFFRY (WDL) X 05/31/2025 8:00 AM EST Carriete Sharri shaikh RN R Eye Sclera yellow 05/31/2025 8:00 AM EST Sharri Vázquez RN L Eye Sclera yellow 05/31/2025 8:00 AM EST Sharri Vázquez RN Head and Face Tenderness 05/31/2025 4:00 AM EST Jarvis Callaway RN * Presentation Question Answer Date of Assessment Author Lines and Tubes Intravenous access 05/31/2025 2:08 PM EST Xiomara Borregoyla Pre-Session Sitting in chair 05/31/2025 2:08 PM EST C onkindra Mariluz Post-Session Standing in room 05/31/2025 2:08 PM EST C onXiomara arguellesyla Pre-Session Comments Pt in bathroom at beginning of session; pt up ad michelle 05/31/2025 2:08 PM EST Mariluz Borrego Post-Session Comments All needs met, RN in room 05/31/2025 2:08 PM EST Mariluz Borrego * BMI (Calculated) Answer Date of Assessment Author 35.3 05/31/2025 12:04 PM EST Ernie Curran * Percent Excess Weight Loss Answer Date of Assessment Author 0 05/30/2025 3:00 PM EST Jazmín Hwang, RD * Total Weight Change Percent Answer Date of Assessment Author 2222 05/31/2025 12:04 PM EST Ernie Curran * Weight Change Since Preop Answer Date of Assessment Author 93.15 05/31/2025 12:04 PM EST Ernie Curran * Initial Excess Weight Answer Date of Assessment Author -54.47 05/30/2025 3:00 PM EST Jazmín Hwang, RD * IBW in lbs (Bariatric) Answer Date of Assessment Author 120.08 05/30/2025 3:00 PM EST Jazmín Hwang, RD * Weight Change Since Last Visit Answer Date of Assessment Author 0.45 05/31/2025 12:04 PM EST Ernie Curran * IBW in kg (Bariatric) Answer Date of Assessment Author 54.47 05/30/2025 3:00 PM EST Jazmín Hwang, RD * Percent of IBW Answer Date of Assessment Author 6,004.02 05/30/2025 3:00 PM EST Jazmín Hwang, RD * EBW (kg) Answer Date of Assessment Author 3,268.85 05/30/2025 3:00 PM EST Jazmín Hwang, RD * EBW (lbs) Answer Date of Assessment Author 3,262.89 05/30/2025 3:00 PM EST Jazmín Hwang, RD * Activity Management Answer Date of Assessment Author up in chair 05/31/2025 1:18 PM EST Marielena River RN * Progress Answer Date of Assessment Author improving 05/31/2025 1:18 PM Marielena Ramos RN * Hepatic Encephalopathy Management Answer Date of Assessment Author airway protection maintained 05/30/2025 11:11 AM EST Oly Mendiola RN * Lung Protection Measures Answer Date of Assessment Author fluid excess minimized 05/31/2025 2:47 AM EST Jarvis Gutierrez RN * Stabilization Measures Answer Date of Assessment Author legs elevated 05/31/2025 1:18 PM EST Marielena River RN * Nutrition Support Management Answer Date of Assessment Author weight trending reviewed 05/31/2025 2:47 AM Jarvis Bishop RN * Infection Management Answer Date of Assessment Author aseptic technique maintained 05/31/2025 2:47 AM Jarvis Bishop RN * Supportive Measures Answer Date of Assessment Author active listening utilized 05/31/2025 1:18 PM Sharri Ramos RN * Oral Nutrition Promotion Answer Date of Assessment Author rest periods promoted 05/31/2025 2:47 AM Jarvis Ortiz RN * Pressure Reduction Techniques Answer Date of Assessment Author heels elevated off bed 05/31/2025 1:18 PM Sharri Albert RN * Perineal Care Answer Date of Assessment Author education provided 05/30/2025 2:33 AM Carlos Enrique Franco RN * Pain Management Interventions Answer Date of Assessment Author declines 05/31/2025 1:18 PM Marielena Ramos RN * Fluid/Electrolyte Management Answer Date of Assessment Author fluids restricted 05/31/2025 1:18 PM Sharri Ramos RN * Fever Reduction/Comfort Measures Answer Date of Assessment Author lightweight bedding;lightweight clothing 2:47 AM Jarvis Bishop RN * Sensory Stimulation Regulation Answer Date of Assessment Author quiet environment promoted 05/31/2025 1:18 PM Sharri Henderson RN * Body Position Answer Date of Assessment Author education provided 05/31/2025 1:18 PM Sharri Ramos RN * Complementary Therapy Answer Date of Assessment Author music therapy provided 05/30/2025 2:33 AM Carlos Enrique Aguilera RN * Airway/Ventilation Management Answer Date of Assessment Author position adjusted 05/31/2025 1:18 PM Sharri Ramos RN * Trust Relationship/Rapport Answer Date of Assessment Author care explained;choices provi ded;empathic listening provided;emotional support provided 05/31/2025 1:18 PM Sharri Ramos RN * Pressure Reduction Devices Answer Date of Assessment Author positioning supports utilized 05/31/2025 2:47 AM Jarvis Bishop RN * Diversional Activities Answer Date of Assessment Author smartphone 05/31/2025 1:18 PM Marielena Ramos RN * Nausea/Vomiting Interventions Answer Date of Assessment Author nausea triggers minimized;si ps of clear liquids given 05/31/2025 2:47 AM Jarvis Bishop RN * Nutrition Interventions Answer Date of Assessment Author frequent small meals provided 05/31/2025 1:18 PM Sharri Ramos RN * Bleeding Precautions Answer Date of Assessment Author monitored for signs of bleeding 05/31/2025 1:18 PM Sharri Ramos RN * Infection Prevention Answer Date of Assessment Author hand hygiene promoted 05/31/2025 1:18 PM Sharri Baker RN * Outcome Evaluation Answer Date of Assessment Author patient understood the plan of care for the shift 05/30/2025 11:05 AM Oly Mercedes RN * Spiritual Activities Assistance Answer Date of Assessment Author hope instilled 05/31/2025 2:47 AM Jarvis Bishop RN * Family/Support System Care Answer Date of Assessment Author support provided 05/31/2025 1:18 PM Shrari Ramos RN * Sleep/Rest Enhancement Answer Date of Assessment Author awakenings minimized;relaxat ion techniques promoted 05/31/2025 1:18 PM Sharri Ramos RN * Medication Review/Management Answer Date of Assessment Author medications reviewed 05/31/2025 1:18 PM Sharri Pastor RN * Seizure Precautions Answer Date of Assessment Author clutter-free environment maintained 05/31/2025 2 :47 AM Jarvis Bishop RN * Skin Protection Answer Date of Assessment Author transparent dressing maintained 05/31/2025 2:47 AM Jarvis Bishop RN * Self-Care Promotion Answer Date of Assessment Author independence encouraged;BADL personal objects within reach 05/31/2025 2:47 AM Jarvis Bishop RN * Isolation Precautions Answer Date of Assessment Author protective 05/31/2025 1:18 PM Marielena Ramos RN * Bleeding Management Answer Date of Assessment Author affected area elevated 05/30/2025 2:33 AM Carlos Enrique Aguilera RN * Safety Interventions Question Answer Date of Assessment Author Safety Precautions/Falls Reduction assistive device/personal items within reach 05/24/2025 4:40 AM Sanjuana Iraheta RN All Alarms alarm(s) activated a nd audible 05/24/2025 4:40 AM Sanjuana Iraheta RN * General Emergency Care CPG Interventions Question Answer Date of Assessment Author General (Individualize) generalized abdo marc pain 05/24/2025 4:40 AM Sanjuana Iraheta RN Coping Interventions anticipatory guidan ce provided;care explained to patient/family prior to performing;cultural beliefs/values incorporated;emotional support provided;safe, supportive environment facilitated;education/i nformation provided;reassurance provided;diversional activities provided;questions answered 05/24/2025 4:40 AM Sanjuana Iraheta RN General Care Management calm environment promoted;medication response monitored;monitored for physiologic status changes;pain relief monitored;positioned for comfort;respiratory status monitored 05/24/2025 4:40 AM Sanjuana Iraheta RN * Discharge Needs Assessment Question Answer Date of Assessment Author Discharge Facility/Level of Care Needs 1-Home or Self Care 05/31/2025 1:38 PM Betzaida Vivar Equipment Needed After Discharge Cpap 05/25/2025 11:22 AM Betzaida Vivar Equipment Currently Used at Home Cpap 05/25/2025 11:22 AM Betzaida Vivar Current Outpatient/Agency/Support Group clinic(s);DME 05/25/2025 11:22 AM Betzaida Vivar Anticipated Changes Related to Illness none 05/25/2025 11:22 AM Betzaida Vivar Transportation Anticipated family or fri end will provide 05/25/2025 11:22 AM Betzaida Vivar Outpatient/Agency/Support Group Needs clinic(s);DME 05/25/2025 11:22 AM Betzaida Vivar Transportation Concerns none 05/25/20 11:22 AM Betzaida Vivar Concerns to be Addressed discharge planning 05/12 11:22 AM Betzaida Vivar Readmission Within the Last 30 Days unable to assess 05/25/2025 11:22 AM Betzaida Vivar Patient/Family Anticipated Services at Transition durable medical equipment 05/25/2025 11:22 AM Betzaida Vivar Patient/Family Anticipates Transition to home with family;home 05/25/2025 11:22 AM Betzaida Vivar Who is requesting discharge planning? Provider 05/25/2025 11:22 AM Betzaida Vivar * Acuity/Destination Question Answer Date of Assessment Author Patient Acuity 3 05/24/2025 3:21 AM EST Sanjuana Bueno, CORWIN * Weight Change 24 hrs Answer Date of Assessment Author .454 05/31/2025 12:04 PM EST Ernie Curran * Precautions Question Answer Date of Assessment Author Left Lower Extremity Weight Bearing Status Full weight Bearing 05/28/2025 3:27 PM Riana Ruiz Right Lower Extremity Weight Bearing Status Full Weight Bearing 05/28/2025 3:27 PM Riana Ruiz Medical Precautions Fall precautions 05/28/2025 3:27 P M Riana Ruiz * Date of OT Session Question Answer Date of Assessment Author OT Initials ssc 05/31/2025 2:05 PM Juana Rangel Date of OT Session [id number] 05/31/2025 2:05 PM Juana Rangel * Oxygen Therapy Question Answer Date of Assessment Author Oxygen Therapy None 05/31/2025 2:08 PM EST Mariluz Guerrero * Delirium Assessment Question Answer Date of Assessment Author RASS 0 05/31/2025 2:08 PM EST Mariluz Michelle * JHHLM Question Answer Date of Assessment Author HLM Daily Mobility Score 8 05/31/2025 2: 08 PM EST Mariluz Borrego * Sensation Question Answer Date of Assessment Author Light Touch: Right Upper Extremity Mild impairment 05/25/2025 2:12 PM Riana Ruiz * Sensation Question Answer Date of Assessment Author Light Touch: Left Upper Extremity Mild impairment 05/25/2025 2:12 PM Riana Ruiz * Sensation Question Answer Date of Assessment Author Light Touch: Right Lower Extremity Mild impairment 05/25/2025 2:24 PM Alexsander Cosby * Sensation Question Answer Date of Assessment Author Light Touch: Left Lower Extremity Mild impairment 05/25/2025 2:24 PM Alexsander Cosby * Bed Mobility Exam: Scooting/Bridging Question Answer Date of Assessment Author Level of [place] Stand-by assist 05/28/2025 3:26 PM EST [place], Mrailuz Physical/Nonphysical Assist Supervision;Verbal Cues;Minimal cues 05/28/2025 3:26 PM EST [place], Mariluz Assistive Device Bed rails 05/28/2025 3:26 PM EST C ongleton, Mariluz * Bed Mobility Exam: Supine to Sit Question Answer Date of Assessment Author Level of [place] Stand-by assist 05/28/2025 3:27 PM EST Riana Almaraz Physical/Nonphysical Assist Supervision;Verbal Cues;HOB elevated;Minimal cues 05/28/2025 3:27 PM Riana Ruiz Assistive Device Bed rails 05/28/2025 3:27 PM EST Riana Clemens * Transfer Exam: Sit to stand Question Answer Date of Assessment Author Level of [place] Modified independence 05/31/2025 2:08 PM EST [place], Mariluz Physical/Nonphysical Assist Supervision 05/31/2025 2:08 PM EST [place], Mariluz Assistive Device Rollator 05/31/2025 2:08 PM EST C ongleton, Mariluz * Transfer Exam: Stand to Sit Question Answer Date of Assessment Author Level of [place] Modified independence 05/31/2025 2:08 PM EST [place], Mariluz Physical/Nonphysical Assist Supervision 05/31/2025 2:08 PM EST [place], Mariluz Assistive Device Walker, rolling 05/31/2025 2:08 PM ES T [place], Mariluz * Toilet Transfer Question Answer Date of Assessment Author Assistive Device Grab bar 05/31/2025 2:08 PM EST [place], Mariluz Type of Transfer Ambulation;To toilet 05/31/2025 2:08 PM EST [place], Mariluz Level of [place] Modified independence 05/13 2:08 PM EST [place], Mariluz Physical/Nonphysical Assist Supervision;Verbal Cues 05/28/2025 3:27 PM Riana Ruiz * Postural Appearance Question Answer Date of Assessment Author Posture WFL 05/31/2025 2:08 PM EST Stangl etjorge Mariluz * UE Dressing Question Answer Date of Assessment Author UE Dressing Where Assessed Edge of bed 05/28/2025 3:2 7 PM Riana Ruiz UE Dressing Level of Assistance Setup 3:27 PM Riana Ruiz * Lower Extremity Dressing Question Answer Date of Assessment Author LE Dressing Where Assessed Edge of bed 05/28/2025 3:2 7 PM Riana Ruiz Shoe Level of Assistance Close supervision 05/28/2025 3:27 PM Riana Ruiz * Toileting Question Answer Date of Assessment Author Where Assessed Toilet 05/28/2025 3:27 PM Riana French Toileting Level of Assistance SBA 05/28/2025 3:27 PM Riana Ruiz * Cognition Question Answer Date of Assessment Author Mood/Behavior Alert 05/28/2025 3:27 PM Riana Ruiz Overall Cognitive Status WFL 025 3:27 PM Riana Ruiz Arousal/Alertness Appropriate response s to stimuli 05/28/2025 3:27 PM Riana Ruiz Attention Span Appears intact 05/28/2025 3:27 PM Riana Ruiz Safety Judgment Good awareness of safety precautions 05/28/2025 3:27 PM Riana Ruiz Awareness of Errors Good awareness of errors made 05/28/2025 3:27 PM Riana Ruiz Method of Communication Verbal 05/28/20 25 3:27 PM Riana Ruiz Single Step Commands Consistently 05/28/2025 3:27 PM Riana Ruiz Multi-Step Commands Consistently 05/28/2025 3 :27 PM Riana Ruiz * General Question Answer Date of Assessment Author Next [place] Re-Assessment Date [id number] 05/25/2025 2:1 8 PM Alexsander Cosby * Plan Question Answer Date of Assessment Author Predicted Duration of Therapy 2 weeks 05/25/2025 2:24 PM Alexsander Cosby Demonstrates Need for Referral to Another Service Studio Hand/spiritual care 05/25/2025 2:24 PM Alexsander Cosby Discharge Recommendation Home with assistance;Outpatien t PT 05/25/2025 2:24 PM Alexsander Cosby Equipment Recommended Rollator 05/25/2025 2:24 PM Alexsander Cosby PT - OK to Discharge Yes 05/25/2025 2:24 PM Alexsander Pratt Planned PT Interventions Balance trainin g;Bed mobility training;Gait training;Transfer training;Neuromuscul ar re-education;Stretch ing;Strengthening;RO M;Functional Mobility 05/25/2025 2:24 PM Alexsander Cosby Therapy Frequency 2 - 5 times per week 05/25/2025 2:24 PM Alexsander Cosby * Gait Training Question Answer Date of Assessment Author Device Rollator 05/31/2025 2:08 PM EST Xiomara Borregoyla Apparatus None 05/31/2025 2:08 PM EST Salima Mariluz Assistance Modified independence 05/31/2025 2:08 PM EST Salima Mariluz Distance 250ft 05/31/2025 2:08 PM Juan C Howarda Gait Analysis Reciprocal gait leilani bhaskar w/ no overt LOB; decreased jayshree and step length bilaterally 05/31/2025 2:08 PM JUAREZ Borrego Mariluz Gait Training Interventions Cueing for rollator management; pt performed obstacle navigation, dual tasks, and pathfinding while ambulating 05/31/2025 2:08 PM EST Xiomara Borregoyla * PT Assessment Question Answer Date of Assessment Author Activity Limitations Inability to comple te ADLs independently;Inability to transfer independently;Inability to ambulate community distances 05/25/2025 2:24 PM Alexsander Cosby Participation Restrictions Self-care;Home management 05/25/2025 2:24 PM Alexsander Cosby History Profile 1 - 2 personal facto rs and/or comorbidities 05/25/2025 2:24 PM Alexsander Cosby Impairments Decreased range of motion;Decreased strength;Impaired gait dynamics/performance;Impa ired locomotion;Impaired functional mobility/transfers;Impair ed balance 05/25/2025 2:24 PM Alexsander Cosby Evaluation/Treatment Tolerance Patient limited by fatigue 05/25/2025 2:24 PM Alexsander Cosby Diagnosis Impaired functional mobility 05/25/2025 2:24 PM Alexsander Cosby Clinical Presentation Stable and/or uncomplicated characteristics 05/25/2025 2:24 PM Alexsander Cosby Clinical Decision Making Low complexity 05/25/2025 2:24 PM Alexsander Cosby Rehab Potential Good, to achieve sta katie therapy goals 05/25/2025 2:24 PM Alexsander Cosby Activity Tolerance Standing;Walking;Juliana erate s 30 min activity with multiple rests 05/25/2025 2:24 PM Alexsander Cosby * Ambulation Question Answer Date of Assessment Author Distance 50ft 05/28/2025 3:26 PM EST [place], Mariluz Device Rolling walker 05/28/2025 3:26 PM EST Con gleton, Mariluz Apparatus None 05/28/2025 3:26 PM EST [place]l [place], Mariluz Assistance Standby assist 05/28/2025 3:26 PM EST Con g[place], Mariluz Ambulation Comments Reciprocal gait leilani bhaskar w/ shuffling gait 05/28/2025 3:26 PM EST Xiomara Borregoyla * Plan of Care Reviewed With Answer Date of Assessment Author patient 05/31/2025 1:18 PM Marielena Ramos RN * Pressure Injury Prevention (PIP) Interventions Question Answer Date of Assessment Author Pressure Reducing Devices Pillow 05/31/2025 8:00 AM Sharri Ramos RN Mattress Acute care mattress 05/25/2025 7:45 PM Malia Leavitt LPN Bed Type Acute Care Bed 05/31/2025 8:00 AM Sharri Baker RN * Behavioral Expectations Question Answer Date of Assessment Author Behavioral Expectations reviewed with patient/guardian and family/partner in care? Yes 05/24/2025 9:00 PM Betzaida Johnson LPN * Vital Signs Question Answer Date of Assessment Author BP 117/72 05/31/2025 11:36 AM JUAREZ vega Doc Flowsheet In Temp 98.1 05/31/2025 11:36 AM EST Inte lexiece, Doc Flowsheet In Pulse 84 05/31/2025 11:36 AM EST Leandro vega Doc Flowsheet In Heart Rate Source Monitor 05/31/2025 7:45 AM Sharri Ramos RN MAP (mmHg) 87 05/31/2025 11:36 AM EST Leandro vega, Doc Flowsheet In * Oxygen Therapy Question Answer Date of Assessment Author SpO2 97 05/31/2025 11:36 AM JUAREZ vega Doc Flowsheet In Oximetry Probe Site Location Left Digit 05/24/2025 3:16 AM EST Ledy Tristan E * Height and Weight Question Answer Date of Assessment Author Weight Method Standing scale 05/28/2025 6:00 AM EST Carlos Enrique Granados RN * Neurological Question Answer Date of Assessment Author Neuro (WDL) WDL 05/24/2025 12:00 PM EST Tracy Schroeder RN * Gastrointestinal Question Answer Date of Assessment Author Most Recent BM Date [id number] 05/31/2025 8:00 AM Sharri Henderson RN Passing Flatus No 05/30/2025 4:00 PM EST Oly Pemberton RN Abdominal Tenderness Nontender 05/31/2025 4:00 AM Jarvis Holly RN Bowel Sounds (All Quadrants) Present 05/31/2025 4 :00 AM Jarvis iBshop RN Gastrointestinal (WD) X 05/31/2025 8:00 AM Sharri Ramos RN Abdomen Inspection Rounded 05/31/2025 8:00 AM Sharri Ramos RN GI Symptoms Distention 05/31/2025 4:00 AM Jarvis Tirado RN Gastrointestinal Additional Assessments No 05/26/2025 4:00 AM EST Malia Medina LPN * Peripheral Vascular Question Answer Date of Assessment Author Peripheral Vascular (WDL) X 05/31/2025 8:00 AM Sharri Ramos RN RLE Edema +2 05/31/2025 8:00 AM Sharri Akhtar RN LLE Edema +2 05/31/2025 8:00 AM Sharri Akhtar RN Capillary Refill Less than/equal to 2 seconds (All extremities) 05/31/2025 4:00 AM Jarvis Bishpo RN Pulses L radial;R radial 05/31/2025 4:00 AM Jarvis Bishop RN Cyanosis None 05/31/2025 4:00 AM Jarvis Tirado RN Edema Right lower extremity;Left lower extremity 05/31/2025 4:00 AM Jarvis Bishop RN * RUE Neurovascular Assessment Question Answer Date of Assessment Author R Radial Pulse +2 05/31/2025 4:00 AM EST Jarvis Waite RN * LUE Neurovascular Assessment Question Answer Date of Assessment Author L Radial Pulse +2 05/31/2025 4:00 AM EST Jarvis Waite RN * RLE Neurovascular Assessment Question Answer Date of Assessment Author R Pedal Pulse +1 05/31/2025 4:00 AM EST Jarvis Callaway RN * LLE Neurovascular Assessment Question Answer Date of Assessment Author L Pedal Pulse +1 05/31/2025 4:00 AM EST Jarvis Callaway RN * Musculoskeletal Question Answer Date of Assessment Author RUE Full movement 05/27/2025 4:00 PM EST Osbo Nabeel park RN RLE Weakness 05/31/2025 8:00 AM EST Sharri Smith RN LUE Full movement 05/27/2025 4:00 PM EST [place] Nabeel park RN LLE Weakness 05/31/2025 8:00 AM Sharri Akhtar RN Musculoskeletal (WDL) X 05/31/2025 8:00 AM Sharri Ramos RN Musculoskeletal Additional Assessments No 05/26/2025 4:00 AM EST Malia Medina LPN * Urine Assessment Question Answer Date of Assessment Author Urinary Incontinence No 05/31/2025 4:00 AM E Jarvis Marks RN * Psychosocial Question Answer Date of Assessment Author Psychological state Calm;Cooperative 05/31/2025 8:00 A M Sharri Ramos RN Needs Expressed Physical 05/31/2025 4:00 AM EST Jarvis Gutierrez RN Psychosocial (WDL) WDL 05/31/2025 8:00 AM Sharri Ramos RN * Intake Question Answer Date of Assessment Author [address] 05/30/2025 5:09 PM EST Oly Mendiola RN * Output (mL) Question Answer Date of Assessment Author Urine 600 05/31/2025 12:04 PM EST Fernando Pickard * Trinidad Fall Risk Question Answer Date of Assessment Author History of Falling, Immediat e or Within 3 Months 0 05/31/2025 8:00 AM Sharri Ramos RN Secondary Diagnosis 15 05/31/2025 8:00 AM Sharri Henderson RN Ambulatory Aid 0 05/31/2025 8:00 AM Sharri Baker RN Intravenous Therapy/Heparin Lock 20 05/31/20 25 8:00 AM Sharri Ramos RN Gait/Transferring 10 05/31/2025 8:00 AM Sharri Ramos RN Mental Status 0 05/31/2025 8:00 AM Sharri Pastor RN Trinidad Fall Risk Score 45 05/31/2025 8:00 AM Sharri Ramos RN * Mando Scale Question Answer Date of Assessment Author Sensory Perceptions 3 05/31/2025 8:00 AM Sharri Henderson RN Moisture 4 05/31/2025 8:00 AM Sharri Akhtar RN Activity 3 05/31/2025 8:00 AM Sharri Akhtar RN Mobility 3 05/31/2025 8:00 AM Sharri Akhtar RN Nutrition 3 05/31/2025 8:00 AM Sharri Akhtar RN Friction and Shear 3 05/31/2025 8:00 AM Sharri Ramos RN Mando Scale Score 19 05/31/2025 8:00 AM Sharri Ramos RN * BSA (Calculated - sq m) Answer Date of Assessment Author 2.05 05/31/2025 12:04 PM Ernie Cooper * BMI (Calculated) Answer Date of Assessment Author 35.24 05/31/2025 12:04 PM Ernie Cooper * Cardiac Question Answer Date of Assessment Author Tick Sewer On No 05/30/2025 4:00 PM Oly Norton RN Cardiac (WDL) WDL 05/31/2025 8:00 AM Sharri Pastor RN Heart Sounds S1, S2 05/31/2025 4:00 AM Jarvis Tirado RN Telemetry/Restaurant And Bar Manager No 05/31/2025 4:00 AM Jarvis Bishop RN Jugular Venous Distention (JVD) No 4:00 AM Jarvis Bishop RN * Respiratory Question Answer Date of Assessment Author Bilateral Breath Sounds Diminished 05/31/2025 8:00 A M Sharri Ramos RN Respiratory Pattern Regular 05/31/2025 4:00 AM Jarvis Wilkins RN Chest Assessment Symmetrical 05/31/2025 4:00 AM Jarvis Sanchez RN Respiratory (WDL) X 05/31/2025 8:00 AM Sharri Ramos RN Respiratory Effort Unlabored 05/31/2025 4:00 AM Jarvis Bishop RN Respiratory Depth/Rhythm Regular 05/31/2025 4:00 AM Jarvis Bishop RN * RLE ROM Assessment Question Answer Date of Assessment Author RLE Assessment WFL 05/25/2025 2:24 PM Alexsander Dunbar * LLE ROM Assessment Question Answer Date of Assessment Author LLE Assessment WFL 05/25/2025 2:24 PM Alexsander Dunbar * Vitals Question Answer Date of Assessment Author Tempaul src Oral 05/31/2025 11:36 AM Fernando Hughes Resp 16 05/31/2025 11:36 AM Fernando Hughes Weight 3286.4 05/31/2025 12:04 PM Fernando Hughes BP Location Right arm 05/31/2025 11:36 AM Fernando Hughes BP Method Automatic 05/31/2025 11:36 AM Fernando Hughes Pulse Oximetry Type Intermittent 05/27/2025 3:21 PM Lien Auguste Patient Activity During SpO2 Measurement At rest 05/27/2025 3:21 PM Lien Mojica Patient Position Sitting 05/31/2025 11:36 AM Fernando Cooper * Point of Care Tests Question Answer Date of Assessment Author Provider Role Resident 05/27/2025 8:35 AM Nabeel Hui RN Blood Glucose Meter 118 05/31/2025 11:36 AM Fernando Mobley Provider Name Alison Leungg 05/27/2025 8:35 AM Nabeel Hui RN Method of Communication Secure message 05/27/2025 8:35 AM Nabeel Ascencio RN Reason for Communication Evaluate 05/27/2025 8:35 AM Nabeel Ascencio RN Response Other (Comment) 05/27/2025 8:35 AM Nabeel Childers RN Name of Nurse Notified of Blood Glucose Results (First and Last) [place]ielena[place]roy River 05/31/2025 11:36 AM Fernando Cooper Glucose Sample Retrieved From Finger stick 05/31/2025 11:36 AM Fernando Cooper * Percent Meals Eaten (%) Answer Date of Assessment Author 50 05/31/2025 12:30 PM Sharri Ramos, CORWIN * Patient Information Question Answer Date of Assessment Author Primary Caregiver Self 05/25/2025 11:21 AM Betzaida Vivar Support System Immediate family 05/25/2025 11:21 AM Betzaida Wilks * Activities of Daily Living Question Answer Date of Assessment Author Functional Status Independent 05/25/2025 11:21 AM Betzaida Vivar Living Arrangements Family 05/25/2025 11:21 AM Betzaida Michaud Type of Residence Single Level 05/25/2025 11:21 AM Betzaida Vivar Current DME Provider [employer] 05/25/2025 11:21 AM Betzaida Vivar * Income Information Question Answer Date of Assessment Author Income Source Government aid 05/25/2025 11:21 AM Betzaida Holcomb * Safety Question Answer Date of Assessment Author Interventions ID band on;Side rails up x2 05/24/2025 3:47 AM Sanjuana Iraheta RN Is the patient being placed on a hold? No 05/24/2025 3:47 AM Sanjuana Iraheta RN * Advance Directives (For Healthcare) Question Answer Date of Assessment Author Advance Directive Patient does not hav e advance directive 05/25/2025 11:22 AM Betzaida Vivar Pre-existing DNR/DNI Order No 05/25/2025 11:22 AM Betzaida Vivar Information Provided on Healthcare Directives Yes 05/25/2025 11:22 AM Betzaida Vivar Patient Requests Assistance No 05/25/2025 11:22 AM Betzaida Vivar Have you reviewed your Advance Directive and is it valid for this stay? Not applicable 05/25/2025 11:22 AM Emiliano Vivar * Nutrition Screen Question Answer Date of Assessment Author Difficulty Chewing or Swallowing No 05/24/2025 9:00 PM Betzaida Johnson LPN Burn, Pressure Injury, or Non-Healing Wound No 05/24/2025 9:00 PM Betzaida Johnson LPN Home Tube Feeding or Total Parenteral Nutrition (TPN) No 05/24/2025 9:00 PM Betzaida Johnson LPN Food allergy, Druze, or Cultural nutrition needs No 05/24/2025 9:00 PM Garrett Johnson LPN * Pain Descriptors Answer Date of Assessment Author Aching 05/30/2025 5:23 PM Xochitl Mercedes RN * Pain Onset Answer Date of Assessment Author Ongoing 05/30/2025 5:23 PM Xochitl Mercedes RN * Pain Frequency Answer Date of Assessment Author Constant/continuous 05/30/2025 5:23 PM Oly Mercedes RN * Trauma/Abuse Assessment Question Answer Date of Assessment Author Physical Abuse Denies 05/24/2025 9:00 PM Betzaida Kaufman LPN Verbal Abuse Denies 05/24/2025 9:00 PM Betzaida Heart LPN * Values/Beliefs Question Answer Date of Assessment Author Cultural Requests During Hospitalization none 05/24/2025 9:00 PM Betzaida Johnson LPN Spiritual Requests During Hospitalization none 05/24/2025 9:00 PM Betzaida Johnson LPN Unable to assess No 05/24/2025 9:00 PM Betzaida Rowe LPN * Genitourinary Question Answer Date of Assessment Author Genitourinary (WDL) WDL 05/31/2025 8:00 AM Sharri Henderson RN * Neurological Question Answer Date of Assessment Author Level of Consciousness Alert 05/31/2025 4:00 AM Jarvis Bishop RN Orientation Level Oriented X4 05/31/2025 4:00 AM Jarvis Bishop RN Cognition Follows commands 05/31/2025 4:00 AM Jarvis Sanchez RN Speech Clear 05/31/2025 4:00 AM Jarvis Tirado RN Neuro ([facility]) WDL 05/31/2025 8:00 AM Sharri Akhtar RN * Prior Function Question Answer Date of Assessment Author Level of Mobility Ambulatory- community 05/28/2025 3:2 7 PM Riana Ruiz Mobility [place] Independent gait w ith device 05/28/2025 3:27 PM Riana Ruiz History of Falls Yes 05/28/2025 3:27 PM Riana Arguello ADL Performance Needs assistance 05/28/2025 3:27 PM Riana Quick Bathing Independent 05/28/2025 3:27 PM Riana Cazares Upper Body Dressing Independent 05/28/2025 3:27 PM Riana Quick Lower Body Dressing Independent 05/28/2025 3:27 PM Riana Quick Grooming Independent 05/28/2025 3:27 PM JUAREZ Samdemetris cedenoRiana Toileting Independent 05/28/2025 3:27 PM JUAREZ Samdemetris cedenoRiana Eating Independent 05/28/2025 3:27 PM Riana Cazares Home Management Skills Needs assist 05/28/2025 3:27 PM Riana Ruiz * RUE ROM Assessment Question Answer Date of Assessment Author ALFREDO Assessment [facility] 05/25/2025 2:24 PM Alexsander Dunbar * LUE ROM Assessment Question Answer Date of Assessment Author NANCY Assessment [facility] 05/25/2025 2:24 PM Alexsander Dunbar * Safe Environment Question Answer Date of Assessment Author 37-Pin Connection [Bed and Wall] Yes 05/30/2025 8:00 AM Oly Mercedes RN Arm Bands On ID 05/31/2025 8:00 AM Shrari Akhtar RN Side Rails/Bed Safety 2/4 05/31/2025 8:00 AM Sharri Ramos RN NonSkid Footwear On;Patient in bed 05/30/2025 4:00 PM Oly Mercedes RN The Patient's Environment is Safe Yes 05/31/2025 8:00 AM Sharri Ramos RN Head of Bed Angle 30 05/27/2025 4:00 PM Nabeel Ascencio RN Bed Foot Left Rail Up State No 05/28/2025 8:00 PM Carlos Enrique Zavala RN Bed Head Right Rail Up State Yes 05/28/2025 8:00 PM Carlos Enrique Zavala RN Bed Head Left Rail Up State Yes 05/28/2025 8:00 PM Carlos Enrique Zavala RN Bed Foot Right Rail Up State No 05/28/2025 8:00 PM Carlos Enrique Zavala RN Bed Exit System Activate Status No 05/28/2025 8:00 PM Carlos Enrique Zavala RN Bed Brake State Yes 05/28/2025 8:00 PM Carlos Enrique Aguilera RN Bed Low Height State No 05/28/2025 8:00 PM E Carlos Enrique Vázquez RN Chair Exit System Activate Status No 05/30/2025 8:00 AM Oly Mercedes RN * Fall Risk Interventions Question Answer Date of Assessment Author Safety Promotion/Fall Prevention activity supervised;assistive device/personal items within reach;clutter-free environment maintained;fall prevention program maintained;nonskid shoes/slippers when out of bed;room organization consistent;safety round/check completed 05/31/2025 8:00 AM Sharri Ramos RN Enhanced Safety Measures education provided 05/31/2025 8:00 AM Sharri Ramos RN Toilet Every 2 Hours-In Advance of Need Yes 05/30/2025 8:00 AM Oly Mercedes RN Hourly Visual Checks Awake 05/31/2025 8:00 AM Sharri Ramos RN Room Door Open Deferred to decrease stimulation;Deferred to promote rest 05/30/2025 8:30 PM Jarvis Bishop RN Gait Belt Used For Transfers Not applicable 05/30/2025 8:30 PM Jarvis Bishop RN Fall Bundle Components Call light within reach;Personal belongings within reach;Overbed table within reach;Bed in lowest position;Bed wheels locked;Non-skid footwear on if up in chair or ambulating;Staff to remain with patient during toileting;Fall risk sign on door;Bed alarm on in zone 2 with proper weight settings;Staff to remain with patient during ambulation and tranfers 05/31/2025 8:00 AM Sharri Ramos RN * Mobility Question Answer Date of Assessment Author Range of Motion active ROM (range of motion) encouraged 05/30/2025 8:00 AM Oly Mercedes RN Activity Assistance Provided assistance, stand-by 05/31/2025 8:00 AM Sharri Ramos RN Assistive Device Utilized front wheel walker 05/30/2025 8:00 AM Oly Mercedes RN VTE Prevention/Management medication;education provided 05/31/2025 8:00 AM Sharri Ramos RN Head of Bed (HOB) Positioning HOB elevated 05/30/2025 8:30 PM Jarvis Bishop RN Repositioned Turns self 05/31/2025 8:00 AM Sharri Ramos RN Head of Bed Elevated HOB 30 05/27/2025 4:00 PM Nabeel Ascencio RN Heels/Feet Foot of bed elevated 05/30/2025 8:00 AM Oly Mercedes RN Reason for Removing Anti-Embolism Device Massive edema of extremity 05/30/2025 8:00 AM Oly Mercedes RN Positioning Frequency Able to turn self 05/31/20 25 8:00 AM Sharri Ramos RN * Hygiene Question Answer Date of Assessment Author Bathing/Skin Care linen changed 05/29/2025 8:47 PM Jeniffer Reyes Oral Care oral rinse provided 05/30/2025 8:30 PM Jarvis Wilkins RN Oral Care (Yes/No) Yes 05/30/2025 8:30 PM Jarvis Bishop RN CHG (Chlorhexidine Gluconate) Hygiene Wipes 05/25/2025 7:45 PM EST Malia Medina LPN * Precautions Question Answer Date of Assessment Author Precautions Environmental surveillance 05/31/2025 8:0 0 AM Sharri Ramos RN * Comfort and Environment Interventions Question Answer Date of Assessment Author Warm [place] Applied 05/25/2025 7:45 PM EST Malia Haas LPN Patient Preferences none stated 05/25/2025 4:00 AM Betzaida Cuadra LPN Comfort Repositioned 05/30/2025 8:30 PM EST Jarvis Bach RN Additional Comfort/Environmental Interventions Warm blanket 05/26/2025 4:00 AM EST Malia Medina LPN * Safety Equipment at Bedside Question Answer Date of Assessment Author Standard Bedside Safety Ambu bags in hallway 05/31/2025 8:00 AM Sharri Ramos RN Additional Bedside Safety Bed in locked and low position;Clutter free environment 05/31/2025 8:00 AM EST Sharri River RN * IBW/kg (Calculated) Male Answer Date of Assessment Author 59.24 05/30/2025 3:[address] * IBW/kg (Calculated) Female Answer Date of Assessment Author 54.74 05/30/2025 3:00 PM EST Jazmín Hwang RD * Consults Question Answer Date of Assessment Author Integrative Medicine Consult Needed No 05/24/2025 9:00 PM Betzaida Johnson LPN Pastoral Care Consult Needed No 05/24/2025 9 :00 PM Betzaida Johnson LPN Tractor Trailer Technician Consult Needed No 05/24/2025 9:00 PM Betzaida Johnson LPN * Therapy Consults Question Answer Date of Assessment Author PT Evaluation Needed 2 05/24/2025 9:00 PM E Betzaida Nix LPN OT Evaluation Needed 2 05/24/2025 9:00 PM E Betzaida Nix LPN BOAT CARPENTER MECHANIC Evaluation Needed 2 05/24/2025 9:00 PM Betzaida Johnson LPN * Assistive Devices Question Answer Date of Assessment Author Assistive Devices CPAP 05/24/2025 9:00 PM Betzaida Johnson LPN * Provider Notification Question Answer Date of Assessment Author Notification Time [id number] 05/27/2025 8:35 AM Nabeel Ascencio RN * End of Shift Review Question Answer Date of Assessment Author Shift Review Complete Yes 05/30/2025 8:00 AM Oly Mercedes RN Shift Report Received From Carlos Enrique OLIVIA 05/30/2025 8:0 0 AM Oly Mercedes RN Shift Report Given To Maury OLIVIA 05/30/2025 8:00 AM Oly Mercedes RN * Hourly Rounding Question Answer Date of Assessment Author Hourly Rounding Complete Per Guideline Yes 05/31/2025 10:00 AM Sharri Ramos RN * Patient Violence Risk Assessment Question Answer Date of Assessment Author History of Violence: In the past 12 hours has the PATIENT exhibited any of the following? None 05/31/2025 8:00 AM Sharri Ramos RN Potential for Violence: In the past 12 hours has the PATIENT exhibited any of the following? None 05/31/2025 8:00 AM Sharri Ramos RN Risk No identified risk 05/31/2025 8:00 AM Sharri Ramos RN History of Violence: In the past 12 hours has a PARTNER IN CARE of the patient exhibited any of the following? None 05/31/2025 8:00 AM Sharri Ramos RN * Cosign for TURKEY PICKER Question Answer Date of Assessment Author Cosign for TURKEY PICKER Raman Almonte RN 05/24/2025 9:00 PM Raman Wick, CORWIN * Skin Assessment Question Answer Date of Assessment Author Skin Assessment Location Bridge of Nose 025 12:15 AM Marcia Velasquez Color & Characteristics Normal/ Supple 05/25/20 25 12:15 AM Dinora Velasquezser Related Device NIV interface 05/25/2025 12:15 AM Marcia Velasquez Interventions Barriers in place/ changed 05/25/2025 12:15 AM EST Marcia Arroyo Skin Integrity Checked Yes 12:15 AM Marcai Velasquez * Fluid / Beverage Intake Question Answer Date of Assessment Author Diet Supplements Boost Glucose Control 05/30/2025 3:00 PM Jazmín Collier, XAVI * Malnutrition Identification Question Answer Date of Assessment Author Unable to Complete Exam Unable to access exam locations 05/30/2025 3:45 PM EST Jazmín Hwang RD * Mobility Question Answer Date of Assessment Author Ambulation Stand by 05/30/2025 8:00 AM EST Oly Mendiola RN * Airway Question Answer Date of Assessment Author Airway Patency Patent 05/24/2025 7:57 PM Jessica Almaraz RN Airway ([facility]) WDL 05/24/2025 7:57 PM EST Jessica Avelar RN * Breathing Question Answer Date of Assessment Author Breathing (L) WDL 05/24/2025 7:57 PM EST Jessica Prado RN * Circulation Question Answer Date of Assessment Author Cardiac Rhythm ST 05/24/2025 7:57 PM Jessica Almaraz RN Circulation ([facility]) X 05/24/2025 7:57 PM Jessica Hines RN * Disability Question Answer Date of Assessment Author L Pupil Size (mm) 3 05/24/2025 7:57 PM Jessica Hines RN R Pupil Size (mm) 3 05/24/2025 7:57 PM Jessica Hines RN Disability ([facility]) [facility] 05/24/2025 7:57 PM Jessica Lerner RN R Pupil Shape Round 05/24/2025 7:57 PM Jessica Benítez RN L Pupil Shape Round 05/24/2025 7:57 PM Jessica Benítez, RN * Restart Vitals Timer Answer Date of Assessment Author Yes 05/31/2025 11:36 AM EST Ernie Curran * IBW/kg (Calculated) Answer Date of Assessment Author 54.74 05/30/2025 3:00 PM EST J[address]mín Hwang RD * STOP-Bang Questionnaire Question Answer Date of Assessment Author Do you snore loudly? 1 05/24/2025 9:00 PM Betzaida Toth LPN Do you often feel tired or fatigued after your sleep? 1 05/24/2025 9:00 PM EST Mondelli, Betzaida R, TURKEY PICKER Has anyone ever observed you stop breathing in your sleep? 1 05/24/2025 9:00 PM EST Betzaida Paez i, LPN Do you have or are you being treated for high blood pressure? 1 05/24/2025 9:00 PM EST Betzaida Fulton LPN Is BMI greater than 35 kg/m2? 1=Yes 05/24/2025 9:00 PM EST Betzaida Fulton LPN Age older than 50 years old? 1=Yes 05/24/2025 9 :00 PM EST Betzaida Fulton LPN Is your neck circumference greater than 17 inches (Male) or 16 inches (Female)? 0 05/24/2025 9:00 PM EST Maura Fulton LPN Gender - Male 0=No 05/24/2025 9:00 PM EST Betzaida Bird LPN STOP-Bang Total Score 6 05/24/2025 9:00 PM EST Betzaida Fulton LPN Recent BMI (Calculated) 36.8 05/24/2025 9:00 P M EST Betzaida Fulton LPN * Feeding Question Answer Date of Assessment Author Feeding Level of Assistance Independent 05/28/2025 3: 27 PM Riana Ruiz Feeding Where Assessed Chair Level 05/28/2025 3:27 PM Riana Ruiz * Grooming Question Answer Date of Assessment Author Grooming Where Assessed Chair level 05/28/2025 3:27 P M Riana Ruiz Grooming Level of Assistance Setup;SBA 05/28/2025 3 :27 PM Riana Ruiz * Dynamic Standing Balance Question Answer Date of Assessment Author Dynamic Standing Level of Assistance Supervision 05/31/2025 2:08 PM EST Mariluz Borrego Dynamic Standing - Interventions Rollator 05/31/2025 2:05 PM EST Juana Marie Dynamic Standing-Balance Support Right upper extremity support;Left upper extremity support 05/31/2025 2:08 PM EST Mariluz Borrego Dynamic Standing-Balance Lateral weight shifts;Anterior/Soybean Grower ior weight shifts 05/31/2025 2:08 PM EST Mariluz Borrego * General Question Answer Date of Assessment Author Next OT Reassessment [id number] 05/28/2025 3:27 PM E SungFredoie Patient/Family Goals Statement Pt would like to get a liver transplant so she can spend time with her grandchildren. 05/28/2025 3:27 PM JUAREZ Almaraz Riana * Home Living Question Answer Date of Assessment Author Home Type House 05/28/2025 3:27 PM Riana Cazares Number of Stairs 4 05/28/2025 3:27 PM Riana Arguello Bathroom: Tub/Shower Walk-in shower;Tub/Shower combo;Shower chair 05/28/2025 3:27 PM Riana Ruiz Bathroom: Toilet Standard 05/28/2025 3:27 PM Riana Arguello Bathroom: Accessibility Accessible 05/28/2025 3:27 P M Riana Ruiz Home Living Comments Pt states she will be staying at her sister's house in [place] at discharge. 05/28/2025 3:27 PM Riana Ruiz Home Layout One level;Stairs to enter with rails 05/28/2025 3:27 PM Riana Ruiz Home Adaptive Equipment Cane;shower chair 05/28/2025 3 :27 PM JUAREZ Almaraz Riana Lives With Sister 05/28/2025 3:27 PM Riana Cazares * Date of PT Session Question Answer Date of Assessment Author PT Initials [facility] 05/31/2025 2:08 PM Mariluz Pal Date of PT Session [id number] 05/31/2025 2:08 PM Mariluz Howard * Calculated C-SSRS Risk Score (Lifetime/Recent) Answer Date of Assessment Author No Risk Indicated 05/31/2025 8:00 AM Sharri Ramos RN * Gipsy Coma Scale Question Answer Date of Assessment Author Best Eye Response Spontaneous 05/31/2025 8:00 AM Sharri Ramos RN Best Verbal Response Oriented 05/31/2025 8:00 AM Sharri Nino RN Best Motor Response Follows commands 05/31/2025 8:00 A M Sharri Ramos RN Michael Coma Scale Score 15 05/31/2025 8:00 AM Sharri Ramos RN * Care Handoff Question Answer Date of Assessment Author Handoff Received From Jessica Jefferson RN 05/24/2025 7:25 PM Jessica Hines RN * Seizure Question Answer Date of Assessment Author Seizure No 05/24/2025 3:47 AM Sanjuana Barnett RN * Tremors Question Answer Date of Assessment Author Tremors No 05/24/2025 3:47 AM Sanjuana Barnett RN * Learning Assessment Question Answer Date of Assessment Author Education Level College 05/24/2025 3:23 AM Sanjuana Ware RN Factors that Impact Ability to Learn None 05/24/2025 3:23 AM Sanjuana Iraheta RN Cultural Considerations None 05/24/2025 3:23 A M Sanjuana Iraheta RN Druze Considerations None 05/24/2025 3:23 AM Sanjuana Iraheta RN * Abuse Screen Question Answer Date of Assessment Author Are you or have you been threatened or abused physically, emotionally, or sexually by a partner, spouse, or family member? No 05/24/2025 3:22 AM Sanjuana Iraheta RN * VARUN 1 Fall Risk Factor Assessment Question Answer Date of Assessment Author Presented to ED because of fall 0 05/24/2025 3:23 AM Sanjuana Iraheta RN Age > 70 0 05/24/2025 3:23 AM Sanjuana Iraheta RN Intoxicated with alcohol or substance confusion 0 05/24/2025 3:23 AM Sanjuana Iraheta RN Ambulates or transfers with assistive devices or assist 0 05/24/2025 3:23 AM Sanjuana Iraheta RN Unable to ambulate or transfer 0 05/24/2025 3:23 AM Sanjuana Iraheta RN Nursing judgement 1 05/24/2025 3:2 3 AM Sanjuana Iraheta RN KINDER 1 Fall Risk Score 1 025 3:23 AM Sanjuana Iraheta RN High Fall Risk Interventions for Scores 1 and above Fall risk bundle components in place as defined below;Fall risk sign on door;Alarms set and confirmed;Call light within reach;Side rails raised;Bed in lowest position and locked;Non-skid socks on patient as appropriate;Belongings within reach 05/24/2025 3:23 AM Sanjuana Iraheta RN * Boarding Screenings Question Answer Date of Assessment Author Have you done screenings in triage or boarder navigator? Yes 05/24/2025 9:41 AM Tracy Araya RN * Patient Belongings Placed in Locker Question Answer Date of Assessment Author Belongings at Bedside None 05/24/2025 3:24 AM Sanjuana Iraheta RN * [place] Suicide Severity Rating Scale Question Answer Date of Assessment Author Is patient awake, alert, and able to answer questions appropriately? Yes 05/24/2025 3:24 AM Sanjuana Iraheta RN * Weight in (lb) to have BMI = 25 Answer Date of Assessment Author 145.4 05/30/2025 3:[address] * BMI (Calculated) Answer Date of Assessment Author 35.3 05/31/2025 12:04 PM Ernie Cooper * Percent Excess Weight Loss Answer Date of Assessment Author 0 05/30/2025 3:[address] * Weight Change Since Preop Answer Date of Assessment Author 93.17 05/31/2025 12:04 PM Ernie Cooper * Initial Excess Weight Answer Date of Assessment Author -54.47 05/30/2025 3:[address] * IBW in kg (Bariatric) Answer Date of Assessment Author 54.47 05/30/2025 3:[address] * IBW in lb (Bariatric) Answer Date of Assessment Author 120.08 05/30/2025 3:[address] * Weight Change Since Last Visit Answer Date of Assessment Author 0.45 05/31/2025 12:04 PM Ernie Cooper * Percent of IBW Answer Date of Assessment Author 170.22 05/30/2025 3:[address] * EBW (kg) Answer Date of Assessment Author 38.22 05/30/2025 3:00 PM EST Jazmín Hwang RD * EBW (lb) Answer Date of Assessment Author 84.32 05/30/2025 3:00 PM EST Jazmín Hwang RD * Difference in Weight Since Last Visit Answer Date of Assessment Author 0.45 05/31/2025 12:04 PM EST Ernie Curran * Housing Circumstances-Z Codes Question Answer Date of Assessment Author Housing Circumstances (select all that apply) Low Income (101-300% Federal Poverty Guidlines) - Z596 05/25/2025 11:21 AM EST Betzaida Bardales * Anthropometrics Question Answer Date of Assessment Author Height 64.016 05/30/2025 3:00 PM EST Jazmín Connor RD * Temp (in Celsius) for [place] Answer Date of Assessment Author 36.7 05/31/2025 11:36 AM EST Ernie Curran * Pain Assessment Question Answer Date of Assessment Author Pain Location Head 05/30/2025 6:23 PM Oly Pizano RN Pain Orientation Bilateral 05/30/2025 6:23 PM Oly Watson RN Patient's Stated Pain Goal No pain 05/30/2025 1:04 AM Carlos Enrique Zavala RN Patient is asleep Yes, assume pain is decreased 05/25/2025 4:18 AM Betzaida Johnson LPN Pain Type Acute pain 05/30/2025 6:23 PM Oly Mercedes RN Clinical Progression Gradually improving 05/30/2025 6: 23 PM Oly Mercedes RN Pain Score 0 05/31/2025 7:45 AM Sharri Akhtar RN Pain Assessment 0-10 (Adult DVPRS/Peds 0-10) 05/31/2025 7:45 AM Sharri Ramos RN * Nutrition Question Answer Date of Assessment Author Fluid Restrictions 2000 05/30/2025 8:30 PM Jarvis Bishop RN Diet Type 2 gram sodium diet 05/31/2025 8:00 AM Sharri Ramos RN Feeding Able to feed self 05/31/2025 8:00 AM Sharri Ramos RN Appetite Fair 05/30/2025 8:30 PM EST Jarvis Bach RN * IBW/kg (Calculated) Answer Date of Assessment Author 54.74 05/30/2025 3:00 PM EST Jazmín Hwang, RD * Adult Low Range Vt 6mL/kg Answer Date of Assessment Author 328.44 05/30/2025 3:00 PM EST Jazmín Hwang, RD * Adult Moderate Range Vt 8mL/kg Answer Date of Assessment Author 437.92 05/30/2025 3:00 PM EST Jazmín Hwang, RD * Adult High Range Vt 10mL/kg Answer Date of Assessment Author 547.4 05/30/2025 3:00 PM EST Jazmín Hwang RD * Vent Information Question Answer Date of Assessment Author Vent ID home 05/30/2025 8:00 AM EST , October NIV Status Refused 05/30/2025 9:09 PM EST Cindy May Patient Category Range Adult 05/28/2025 9:55 AM EST Hector Melton Vent Mode CPAP 05/25/2025 12:15 AM EST Marcia Castillo O2 Delivery Method CPAP/Bi-PAP mask 05/25/2025 12:15 A M EST Marcia Arroyo Vent Device Type C1 05/25/2025 12:15 AM EST Marcia Arroyo Non-Invasive Ventilator On Yes 05/25/2025 11: 40 PM EST Kalie Robledo Non-Invasive Ventilator Off Yes 05/28/2025 9:55 AM EST Hector Melton $ CPAP Charge Yes 05/25/2025 12:15 AM EST Marcia Christianson * Respiratory Interventions Question Answer Date of Assessment Author Respiratory Interventions Cough and deep breathing 05/31/2025 8:00 AM EST Sharri River RN * Cough and Deep Breathe Question Answer Date of Assessment Author Cough And Deep Breathing done independently per patient 05/31/2025 8:00 AM EST Sharri River, CORWIN * Patient Belongings Sent to Safe/Security Question Answer Date of Assessment Author Belongings Sent to Safe/Security None 05/24/20 3:24 AM EST Sanjuana Schumacher RN * Integumentary Question Answer Date of Assessment Author Skin Color Jaundice 05/31/2025 8:00 AM Sharri Akhtar RN Skin Condition/Temp Warm;Dry 05/31/2025 4:00 AM Jarvis Wilkins RN Skin Integrity Bruising 05/31/2025 8:00 AM Sharri Baker RN Skin Turgor Non-tenting 05/31/2025 4:00 AM Jarvis Tirado RN Bruising Characteristics generalized 05/30/2025 8:00 AM Oly Mercedes RN Integumentary (WDL) X 05/31/2025 8:00 AM Sharri Henderson RN * Patient Belongings Sent Home Question Answer Date of Assessment Author Belongings Sent Home Electronic devices 05/31/2025 1:0 0 PM Sharri Ramos RN Patient Electronics Cell phone 05/31/2025 1:00 PM Sharri Henderson RN * Skin Assessment Question Answer Date of Assessment Author Scale Used Mando 05/24/2025 9:41 AM EST Tracy Lopez RN * Confusion Assessment Method (CAM) Question Answer Date of Assessment Author Acute Onset and Fluctuating Course (1A) No 05/31/2025 4:00 AM EST Jarvis Ibrahim R N * Confusion Assessment Method-ICU (CAM-ICU/PCAM-ICU) Question Answer Date of Assessment Author Feature 3: Altered Level of Consciousness Negative 05/31/2025 2:08 PM EST Mariluz Borrego * Sedation Scales Question Answer Date of Assessment Author Sedation Scale Used Tang Agitation Sedation Scale 05/31/2025 4:00 AM Jarvis Bishop RN * Urine Output/Assessment Question Answer Date of Assessment Author Urine Color Yellow/straw 05/30/2025 4:00 PM Oly Mercedes RN Urine Appearance Clear 05/30/2025 4:00 PM Oly Watson RN Urine Odor No odor 05/30/2025 4:00 PM Oly Mercedes RN Unmeasured Urine Occurrence 1 05/30/2025 12:57 PM Oly Mercedes RN Urine Amount Unable to assess 05/30/2025 12:57 PM Oly Mercedes RN * Stool Output/Assessment Question Answer Date of Assessment Author Unmeasured Stool Occurrence (hourly total) 1 05/26/2025 8:00 AM Ernie Barrientos RN Stool Amount Unable to assess 05/26/2025 8:00 AM Ernie Powell RN Stool Appearance Loose 05/26/2025 8:00 AM Ernie Powell RN Bowel Incontinence No 05/26/2025 8:00 AM Ernie Barrientos RN * Fall Risk Calculated Score Answer Date of Assessment Author Vivi High 05/31/2025 8:00 AM Marielena Ramos RN * Patient Specific Goals Question Answer Date of Assessment Author Patient/Family-Specific Goals (Include Timeframe) Patient will be free from harm throughout this shift 05/31/2025 8:00 AM Sharri Ramos RN Individualized Care Needs Safety 2024 8:00 AM Sharri Ramos RN Anxieties, Fears or Concerns Going home 05/31/2025 8:00 AM Sharri Ramos RN * Delirium Assessment Question Answer Date of Assessment Author Delirium Prevention & Management Yes 05/30/2025 4:00 PM Oly Mercedes RN Delirium Prevention & Management: Early Mobility Ambulate to extent of patient's ability;Educate patient and family about the benfits of early mobility in the hospital 05/30/2025 4:00 PM Oly Mercedes RN Delirium Prevention & Management: Cognitive Engagement Delirium prevention education provided to patient and family;Reorienting communication 05/30/2025 4:00 PM lOy Mercedes RN Delirium Prevention & Management: Optimize Sleep/Wake Cycles Natural light during the day;Educate patient and family about optimizing sleep 05/30/2025 4:00 PM Oly Mercedes RN Delirium Scale Used Confusion Assessment Method 05/31/2025 4:00 AM Jarvis Bishop RN * Unplanned Readmission Scores Question Answer Date of Assessment Author Unplanned Readmission Score 24.21 05/31/2025 12 :00 PM Dianne Moyer * Gipsy Coma Scale Numeric Answer Date of Assessment Author 15 05/31/2025 8:00 AM Marielena Ramos RN * Vent Settings (Invasive or Non Invasive) Question Answer Date of Assessment Author NIV Interface OTN mask 05/25/2025 12:15 AM EST Marcia Christianson FiO2 (%) 21 05/25/2025 12:15 AM EST Marcia Castillo Resp Rate Observed 16 05/25/2025 12:15 AM Marcia Beach Minute Ventilation Set (L/min) 5 05/25/2025 12:15 AM EST Marcia Arroyo Vt Spontaneous (mL) 684 05/25/2025 12:[address] Marcia Arroyo PEEP/CPAP Set 5 05/25/2025 12:15 AM EST Marcia Christianson Mask Size Small 05/25/2025 12:15 AM EST Marcia Castillo Trigger Sensitivity Flow (L/min) 5 05/25/20 25 12:15 AM EST Marcia Arroyo PEEP/CPAP Measured 5 05/25/2025 12:15 AM Marcia Beach Masked Changed Q4 Yes 05/25/2025 12:15 AM EST Marcia Arroyo Leak (%) 29 05/25/2025 12:15 AM EST Marcia Castillo * Hyperglycemia Management Answer Date of Assessment Author blood glucose monitored 05/31/2025 1:18 PM EST Sharri Rangel, CORWIN * Hypoglycemia Management Answer Date of Assessment Author blood glucose monitored 05/31/2025 2:47 AM EST Jarvis Gomez RN * Neurological Question Answer Date of Assessment Author Headache No 05/24/2025 3:47 AM EST Sanjuana Kingston RN Neuro Pertinent Negatives Alert and oriented x 4;Speech clear 05/24/2025 3:47 AM Sanjuana Iraheta RN Neuro (WDL) WDL 05/24/2025 3:47 AM Sanjuana Barnett RN * Gastrointestinal Question Answer Date of Assessment Author Pain Location Generalized middle abdomen;Generalized lower abdomen 05/24/2025 8:03 PM Jessica Hines RN Gastrointestinal (WDL) X 8:03 PM Jessica Hnies RN * Skin Color/Condition Question Answer Date of Assessment Author Skin Pertinent Negatives Intact;Warm;Dry 05/24/2025 3: 49 AM Sanjuana Iraheta RN Skin Color/Condition ([facility]) X 05/24/2025 3:49 AM Sanjuana Iraheta RN * Psychosocial Question Answer Date of Assessment Author Affect Appropriate to circumstances 05/24/2025 3:47 AM Sanjuana Iraheta RN Psychosocial ([facility]) WDL 05/24/2025 3:47 AM Sanjuana Iraheta RN * Cardiac Question Answer Date of Assessment Author Cardiac Regularity Regular 05/24/2025 3:46 AM Sanjuana Iraheta RN Bedside Restaurant And Bar Manager On Yes 05/24/2025 3:4 6 AM Sanjuana Iraheta RN Bedside Cardiac Audible Yes 05/24/2025 3:46 A M Sanjuana Iraheta RN Bedside Cardiac Alarms Set Yes 05/24/2025 3:4 6 AM Sanjuana Iraheta RN Chest Pain Present No 05/24/2025 3:46 AM Sanjuana Iraheta RN Pacemaker No 05/24/2025 3:46 AM Sanjuana Barnett RN Cardiac ([facility]) X 05/24/2025 3:46 AM Sanjuana Thomas RN * Genitourinary Question Answer Date of Assessment Author Genitourinary Pertinent Negatives Continent;Denies complaints 05/24/2025 8:03 PM Jessica Hines RN Genitourinary ([facility]) WDL 05/24/2025 8 :03 PM Jessica Hines RN * Respiratory Question Answer Date of Assessment Author Mucous Membranes Intact;Moist 05/24/2025 3:46 AM Sanjuana Iraheta RN Ability to Speak Speaking in full sentences 05/24/2025 3:46 AM Sanjuana Iraheta RN Respiratory Pertinent Negatives Respirations regular/unlabored;No cough 05/24/2025 3:46 AM Sanjuana Iraheta RN Respiratory ([facility]) WDL 05/24/2025 3:4 6 AM Sanjuana Iraheta RN * Musculoskeletal Question Answer Date of Assessment Author Musculoskeletal Pertinent Negatives Moves all extremities;No injury;No deformity;No swelling 05/24/2025 3:48 AM Sanjuana Iraheta RN Musculoskeletal (WDL) WDL 05/24/2025 3:48 AM Sanjuana Iraheta RN * Cough Question Answer Date of Assessment Author Cough Present No 05/24/2025 3:46 AM Sanjuana Thomas RN * Vitals Timer Question Answer Date of Assessment Author Update Vitals Alert Interval 240 05/24/2025 6 :00 PM EST Sloan Washburn Restart Vitals Timer Yes 05/31/2025 11:36 AM Fernando Cooper Restart Vitals Timer Yes 05/24/2025 6:59 AM Aster North CNA * Hourly Rounding Question Answer Date of Assessment Author Activity Assistance Patient independent 05/24/2025 4:2 6 AM Sanjuana Iraheta RN Call Light Call light present a nd within reach 05/24/2025 4:40 PM Tracy Araya, RN Rest/ Sleep Appeared asleep 05/24/2025 4:40 PM Tracy Wolf, RN Completed Hourly Rounding Yes 05/24/2025 4:40 PM Tracy Araya , RN Plan of Care Reviewed With Patient 05/24/2025 4:26 AM Sanjuana Iraheta RN * Standardized Assessments Question Answer Date of Assessment Author Standardized Assessments SPPB 05/28/2025 3:26 PM Mariluz Howard * Ampac 6-Click Daily Activities Question Answer Date of Assessment Author Help from Other: Don/Doff Re gular Lower Body Clothings 3 05/25/2025 2:12 PM Riana Ruiz Help From Other: Bathing 3 05/25/2025 2:12 PM Riana Ruiz Help From Other: Toileting 3 05/25/2025 2:1 2 PM Riana Ruiz Help From Other: Don/Doff Up per Body Clothings 4 05/25/2025 2:12 PM Riana Ruiz Help From Other: Grooming 4 05/25/2025 2:12 PM Riana Ruiz Help From Other: Eating Meals 4 05/25/2025 2:12 PM EST Riana Almaraz [facility] 6 Click - Daily Activities Score 21 2:12 PM EST Riana Almaraz * Short Physical Performance Battery Question Answer Date of Assessment Author Short Physical Performance Battery Performed 2024 3:26 PM EST [place], Mariluz Balance Score 4 05/28/2025 3:26 PM EST Brady leton Mariluz Walk Score (4 Meter Walk) 2 05/28/2025 3:26 PM EST [place], Mariluz Chair Stand Score 1 05/28/2025 3:26 PM EST [place], Mariluz Total Score 7 05/28/2025 3:26 PM EST Congl etonXiomaraMariluz * Standardized Tests Question Answer Date of Assessment Author Standardized Tests MOCA 05/31/2025 2:05 PM EST Juana Marie * Visuospatial/Executive Points Question Answer Date of Assessment Author Alternate [place] Marking 1 05/31/2025 2:05 P M EST Juana Marie Visuoconstructional Skills (Cube) 1 025 2:05 PM EST Frank Juana Contour 1 05/31/2025 2:05 PM EST Frank Juana Numbers 1 05/31/2025 2:05 PM EST Frank Juana Hands 0 05/31/2025 2:05 PM EST Frank Juana Visuospatial/Executive Total 4 05/31/2025 2 :05 PM EST Frank Juana * Naming Question Answer Date of Assessment Author Lion 1 05/31/2025 2:05 PM EST Marie, Juana Rhinoceros 1 05/31/2025 2:05 PM EST Marie, Juana Camel 1 05/31/2025 2:05 PM EST Frank Juana Naming Points 3 05/31/2025 2:05 PM EST Frank Juana * Memory Question Answer Date of Assessment Author 1st Trial Face;Velvet;Tenriism;Tanika;Red 05/31/2025 2 :05 PM EST Frank Juana * Attention Question Answer Date of Assessment Author Forward Digit Span 1 05/31/2025 2:05 PM EST Juana Marie Forward Digit Span 1 05/31/2025 2:05 PM EST Frank Juana Vigilance 1 05/31/2025 2:05 PM EST Juana Marie Serial 7's 3 05/31/2025 2:05 PM EST Frank Juana Attention Points 6 05/31/2025 2:05 PM EST H samm Juana * Language Question Answer Date of Assessment Author Sentence Repetition 2 05/31/2025 2:05 PM Juana Morris Verbal Fluency 1 05/31/2025 2:05 PM EST Juana Phelan Language Points 3 05/31/2025 2:05 PM EST Abrams Juana moscoso * Abstraction Question Answer Date of Assessment Author Similarities/Abstraction Points 2 2:05 PM EST Juana Marie * Delayed Recall Question Answer Date of Assessment Author Delayed Recall 3 05/31/2025 2:05 PM EST Juana Phelan * Orientation Question Answer Date of Assessment Author Date 1 05/31/2025 2:05 PM EST Frank Juana Month 1 05/31/2025 2:05 PM EST Marie, Juana Year 1 05/31/2025 2:05 PM EST Frank Juana Day 1 05/31/2025 2:05 PM EST Frank Juana Place 1 05/31/2025 2:05 PM EST Frank [place] City 1 05/31/2025 2:05 PM EST Frank Juana 12 Years of Education or Less 1 05/31/2025 2:05 PM EST Juana Marie Oritentation Points 7 05/31/2025 2:05 PM E Juana Vasquez Total MOCA Score 28 05/31/2025 2:05 PM EST H Juana quijano * Elopement Risk Screen Question Answer Date of Assessment Author Does the patient exhibit any of the following behaviors? No 05/31/2025 8:00 AM Sharri Ramos, COR[place] Does the patient have a cour t ordered legal guardian? No 05/31/2025 8:00 AM Magdalena Ramos, RN * Manual Muscle Testing - LLE Question Answer Date of Assessment Author Manual Muscle Testing WFL 05/25/2025 2:24 PM EST Alexsander Robledo * Manual Muscle Testing - RUE Question Answer Date of Assessment Author Manual Muscle Testing - RUE [facility] 05/25/2025 2: 24 PM EST Alexsander Robledo * Manual Muscle Testing - LUE Question Answer Date of Assessment Author Manual Muscle Testing - LUE [facility] 05/25/2025 2: 24 PM EST Alexsander Robledo * Participants in Care Question Answer Date of Assessment Author Renovation Plant Supervisor N/A 05/31/2025 2:08 PM EST Xiomara Michelleyla Family/Caregiver Present N 05/31/2025 2:08 PM EST Xiomara Borregoyla * Dynamic Sitting Balance Question Answer Date of Assessment Author Level of Assistance Independent 05/31/2025 2:08 PM ES T Xiomara Borregoyla Dynamic Sitting-Balance Support Feet supported 05/31/2025 2:08 PM EST [place], Mariluz Dynamic Sitting-Balance Anterior/Posteri or weight shifts;Lateral weight shifts 05/31/2025 2:08 PM EST Xiomara Borregoyla * Cognition Question Answer Date of Assessment Author Orientation Level Oriented X4 05/25/2025 2:24 PM EST Alexsander Robledo * Static Sitting Balance Question Answer Date of Assessment Author Static Sitting-Level of Assistance Independent 05/31/2025 2:08 PM EST Xiomara Borregoyla Static Sitting-Balance Support Feet supported 05/31/20 2:08 PM EST Salima Mariluz * Static Standing Balance Question Answer Date of Assessment Author Static Standing-Level of Assistance Supervision 05/31/2025 2:08 PM EST Xiomara Borregoyla Static Standing - Interventions Rollator 05/31/2025 2:05 PM EST Juana Marie Static Standing-Balance Support Right upper extremity support;Left upper extremity support 05/31/2025 2:08 PM EST Xiomara Borregoyla * OT Assessment Question Answer Date of Assessment Author OT Assessment Results Impaired ADL performance;Decreased upper extremity strength;Impaired functional mobility;Impaired IADL performance;Decreased endurance/ventilation/ga s exchange;Decreased gross motor control/coordination;Imp aired balance 05/25/2025 2:12 PM EST Riana Almaraz Occupational Profile Expanded review of medical/therapy records and additional review of physical, cognitive, or psychosocial history 05/25/2025 2:12 PM Riana Ruiz Clinical Decision Making Moderate 025 2:12 PM Riana Ruiz Barriers to Discharge Comorbidities 05/25/2025 2:12 PM Riana Ruiz Overall Eval complexity Moderate 05/25/20 25 2:12 PM Riana Ruiz Rehab Potential Good, to achieve sta katie therapy goals 05/25/2025 2:12 PM Riana Ruiz Performance Deficits Activities of daily living (ADLs);Instrumental activities of daily living (IADLs);Leisure;Habits;R outines;Roles;Physical 05/25/2025 2:12 PM Riana Ruiz * C-SSRS (Frequent Screener) Question Answer Date of Assessment Author Is patient awake, alert, and able/willing to answer questions appropriately? Yes 05/31/2025 8:00 AM Sharri Ramos RN 1. Wish to be (Past 1 Month) No 025 8:00 AM Sharri Ramos RN 2. Non-Specific Active Suici josh Thoughts (Past 1 Month) No 05/31/2025 8:00 AM Magdalena Ramos, CORWIN 6. Suicidal Behavior (Lifetime) No 8:00 AM Sharri Ramos, CORWIN * Discharge Planning Continued Question Answer Date of Assessment Author Transportation Home at Discharge Family/Friend will Provide 05/25/2025 11:22 AM Betzaida Vivar * [facility] 6-Clicks Mobility Assessment Question Answer Date of Assessment Author Difficulty patient has turni ng over in bed (including adjusting bedclothes, sheets, and blankets)? 4 05/31/2025 2:08 PM Cecelia Howard Difficulty patient has sitti ng down on and standing up from a chair with arms (wheelchair, bedside commode, etc.)? 4 05/31/2025 2:08 PM Mariluz Howard Difficulty patient has movin g from lying on back to sitting on the side of the bed? 4 05/31/2025 2:08 PM EST Mariluz Borrego How much help does the patie nt need moving to and from a bed to a chair (including a wheelchair)? 4 05/31/2025 2:08 PM EST Mariluz Borrego How much help does the patie nt need to walk in hospital room? 4 05/31/2025 2:08 PM EST Cecelia Borrego How much help does the patie nt need climbing 3-5 steps with a railing? 3 05/31/2025 2:08 PM EST Co annmarieMariluz AMPAC 6-Clicks Mobility Asse ssment Total 23 05/31/2025 2:08 PM EST Mariluz Borrego * PT Therapeutic Procedures Time Entry Question Answer Date of Assessment Author Gait Training Time Entry 13 05/31/2025 2:08 PM EST Mariluz Borrego Therapeutic Activity Time Entry 33 2:08 PM EST Mariluz Borrego * HEENT Question Answer Date of Assessment Author HEHARVEY (WDL) X 05/31/2025 8:00 AM EST Sharri Smith RN R Eye Sclera yellow 05/31/2025 8:00 AM EST Sharri Vázquez RN L Eye Sclera yellow 05/31/2025 8:00 AM EST Sharri Vázquez RN Head and Face Tenderness 05/31/2025 4:00 AM EST Jarvis Callaway RN * Presentation Question Answer Date of Assessment Author Lines and Tubes Intravenous access 05/31/2025 2:08 PM EST Mariluz Borrego Pre-Session Sitting in chair 05/31/2025 2:08 PM EST Xiomara Bellyla Post-Session Standing in room 05/31/2025 2:08 PM EST Xiomara Bellyla Pre-Session Comments Pt in bathroom at beginning of session; pt up ad michelle 05/31/2025 2:08 PM EST Mariluz Borrego Post-Session Comments All needs met, RN in room 05/31/2025 2:08 PM EST Mariluz Borrego * Activity Management Answer Date of Assessment Author up in chair 05/31/2025 1:18 PM EST Marielena River RN * Hepatic Encephalopathy Management Answer Date of Assessment Author airway protection maintained 05/30/2025 11:11 AM EST Oly Mendiola RN * Lung Protection Measures Answer Date of Assessment Author fluid excess minimized 05/31/2025 2:47 AM Jarvis Bender RN * Stabilization Measures Answer Date of Assessment Author legs elevated 05/31/2025 1:18 PM Marielena Ramos RN * Nutrition Support Management Answer Date of Assessment Author weight trending reviewed 05/31/2025 2:47 AM Jarvis Bishop RN * Infection Management Answer Date of Assessment Author aseptic technique maintained 05/31/2025 2:47 AM Jarvis Bishop RN * Supportive Measures Answer Date of Assessment Author active listening utilized 05/31/2025 1:18 PM Sharri Ramos RN * Oral Nutrition Promotion Answer Date of Assessment Author rest periods promoted 05/31/2025 2:47 AM Jarvis Ortiz RN * Pressure Reduction Techniques Answer Date of Assessment Author heels elevated off bed 05/31/2025 1:18 PM Sharri Albert RN * Perineal Care Answer Date of Assessment Author education provided 05/30/2025 2:33 AM Carlos Enrique Franco RN * Pain Management Interventions Answer Date of Assessment Author declines 05/31/2025 1:18 PM Marielena Ramos RN * Fluid/Electrolyte Management Answer Date of Assessment Author fluids restricted 05/31/2025 1:18 PM Sharri Ramos RN * Fever Reduction/Comfort Measures Answer Date of Assessment Author lightweight bedding;lightweight clothing 2:47 AM Jarvis Bishop RN * Sensory Stimulation Regulation Answer Date of Assessment Author quiet environment promoted 05/31/2025 1:18 PM Sharri Henderson RN * Body Position Answer Date of Assessment Author education provided 05/31/2025 1:18 PM Sharri Ramos RN * Complementary Therapy Answer Date of Assessment Author music therapy provided 05/30/2025 2:33 AM Carlos Enrique Aguilera RN * Airway/Ventilation Management Answer Date of Assessment Author position adjusted 05/31/2025 1:18 PM Sharri Ramos RN * Trust Relationship/Rapport Answer Date of Assessment Author care explained;choices provi ded;empathic listening provided;emotional support provided 05/31/2025 1:18 PM Sharri Ramos RN * Pressure Reduction Devices Answer Date of Assessment Author positioning supports utilized 05/31/2025 2:47 AM Jarvis Bishop RN * Diversional Activities Answer Date of Assessment Author smartphone 05/31/2025 1:18 PM Marielena Ramos RN * Nausea/Vomiting Interventions Answer Date of Assessment Author nausea triggers minimized;si ps of clear liquids given 05/31/2025 2:47 AM Jarvis Bishop RN * Nutrition Interventions Answer Date of Assessment Author frequent small meals provided 05/31/2025 1:18 PM Sharri Ramos RN * Bleeding Precautions Answer Date of Assessment Author monitored for signs of bleeding 05/31/2025 1:18 PM Sharri Ramos RN * Infection Prevention Answer Date of Assessment Author hand hygiene promoted 05/31/2025 1:18 PM Sharri Baker RN * Outcome Evaluation Answer Date of Assessment Author patient understood the plan of care for the shift 05/30/2025 11:05 AM Oly Mercedes RN * Spiritual Activities Assistance Answer Date of Assessment Author hope instilled 05/31/2025 2:47 AM Jarvis Bishop RN * Family/Support System Care Answer Date of Assessment Author support provided 05/31/2025 1:18 PM Sharri Ramos RN * Sleep/Rest Enhancement Answer Date of Assessment Author awakenings minimized;relaxat ion techniques promoted 05/31/2025 1:18 PM Sharri Ramos RN * Medication Review/Management Answer Date of Assessment Author medications reviewed 05/31/2025 1:18 PM Sharri Pastor RN * Seizure Precautions Answer Date of Assessment Author clutter-free environment maintained 05/31/2025 2 :47 AM Jarvis Bishop RN * Skin Protection Answer Date of Assessment Author transparent dressing maintained 05/31/2025 2:47 AM Jarvis Bishop RN * Self-Care Promotion Answer Date of Assessment Author independence encouraged;BADL personal objects within reach 05/31/2025 2:47 AM Jarvis Bishop RN * Isolation Precautions Answer Date of Assessment Author protective 05/31/2025 1:18 PM Marielena Ramos RN * Bleeding Management Answer Date of Assessment Author affected area elevated 05/30/2025 2:33 AM Carlos Enrique Aguilera RN * Safety Interventions Question Answer Date of Assessment Author Safety Precautions/Falls Reduction assistive device/personal items within reach 05/24/2025 4:40 AM Sanjuana Iraheta RN All Alarms alarm(s) activated a nd audible 05/24/2025 4:40 AM Sanjuana Iraheta RN * General Emergency Care CPG Interventions Question Answer Date of Assessment Author General (Individualize) generalized abdo marc pain 05/24/2025 4:40 AM Sanjuana Iraheta RN Coping Interventions anticipatory guidan ce provided;care explained to patient/family prior to performing;cultural beliefs/values incorporated;emotional support provided;safe, supportive environment facilitated;education/i nformation provided;reassurance provided;diversional activities provided;questions answered 05/24/2025 4:40 AM Sanjuana Iraheta RN General Care Management calm environment promoted;medication response monitored;monitored for physiologic status changes;pain relief monitored;positioned for comfort;respiratory status monitored 05/24/2025 4:40 AM Sanjuana Iraheta RN * Discharge Needs Assessment Question Answer Date of Assessment Author Discharge Facility/Level of Care Needs 1-Home or Self Care 05/31/2025 1:38 PM Betzaida Vivar Equipment Needed After Discharge Cpap 05/25/2025 11:22 AM Betzaida iVvar Equipment Currently Used at Home Cpap 05/25/2025 11:22 AM Betzaida Vivar Current Outpatient/Agency/Support Group clinic(s);DME 05/25/2025 11:22 AM Betzaida Vivar Anticipated Changes Related to Illness none 05/25/2025 11:22 AM Betzaida Vivar Transportation Anticipated family or fri end will provide 05/25/2025 11:22 AM Betzaida Vivar Outpatient/Agency/Support Group Needs clinic(s);DME 05/25/2025 11:22 AM Betzaida Vivar Transportation Concerns none 05/25/20 11:22 AM Betzaida Vivar Concerns to be Addressed discharge planning 05/12 11:22 AM Betzaida Vivar Readmission Within the Last 30 Days unable to assess 05/25/2025 11:22 AM Betzaida Vivar Patient/Family Anticipated Services at Transition durable medical equipment 05/25/2025 11:22 AM Betzaida Vivar Patient/Family Anticipates Transition to home with family;home 05/25/2025 11:22 AM Betzaida Vivar Who is requesting discharge planning? Provider 05/25/2025 11:22 AM Betzaida Vivar * Precautions Question Answer Date of Assessment Author Left Lower Extremity Weight Bearing Status Full weight Bearing 05/28/2025 3:27 PM Riana Ruiz Right Lower Extremity Weight Bearing Status Full Weight Bearing 05/28/2025 3:27 PM Riana Ruiz Medical Precautions Fall precautions 05/28/2025 3:27 P M Riana Ruiz * Date of OT Session Question Answer Date of Assessment Author OT Initials ssc 05/31/2025 2:05 PM Juana Rangel Date of OT Session [id number] 05/31/2025 2:05 PM Juana Rangel * Oxygen Therapy Question Answer Date of Assessment Author Oxygen Therapy None 05/31/2025 2:08 PM EST Mariluz Guerrero * Delirium Assessment Question Answer Date of Assessment Author RASS 0 05/31/2025 2:08 PM EST Mariluz Michelle * JHHLM Question Answer Date of Assessment Author RAÚL HLM Daily Mobility Score 8 05/31/2025 2: 08 PM Mariluz Howard * Sensation Question Answer Date of Assessment Author Light Touch: Right Upper Extremity Mild impairment 05/25/2025 2:12 PM Riana Ruiz * Sensation Question Answer Date of Assessment Author Light Touch: Left Upper Extremity Mild impairment 05/25/2025 2:12 PM Riana Ruiz * Sensation Question Answer Date of Assessment Author Light Touch: Right Lower Extremity Mild impairment 05/25/2025 2:24 PM Alexsander Cosby * Sensation Question Answer Date of Assessment Author Light Touch: Left Lower Extremity Mild impairment 05/25/2025 2:24 PM Alexsander Cosby * Bed Mobility Exam: Scooting/Bridging Question Answer Date of Assessment Author Level of [place] Stand-by assist 05/28/2025 3:26 PM EST [place], Mariluz Physical/Nonphysical Assist Supervision;Verbal Cues;Minimal cues 05/28/2025 3:26 PM EST [place], Mariluz Assistive Device Bed rails 05/28/2025 3:26 PM EST C [place], Mariluz * Bed Mobility Exam: Supine to Sit Question Answer Date of Assessment Author Level of [place] Stand-by assist 05/28/2025 3:27 PM Riana Ruiz Physical/Nonphysical Assist Supervision;Verbal Cues;HOB elevated;Minimal cues 05/28/2025 3:27 PM Riana Ruiz Assistive Device Bed rails 05/28/2025 3:27 PM EST Riana Clemens * Transfer Exam: Sit to stand Question Answer Date of Assessment Author Level of [place] Modified independence 05/31/2025 2:08 PM EST [place], Mariluz Physical/Nonphysical Assist Supervision 05/31/2025 2:08 PM EST [place], Mariluz Assistive Device Rollator 05/31/2025 2:08 PM EST C [place], Mariluz * Transfer Exam: Stand to Sit Question Answer Date of Assessment Author Level of [place] Modified independence 05/31/2025 2:08 PM EST [place], Mariluz Physical/Nonphysical Assist Supervision 05/31/2025 2:08 PM EST [place], Mariluz Assistive Device Walker, rolling 05/31/2025 2:08 PM ES T [place], Mariluz * Toilet Transfer Question Answer Date of Assessment Author Assistive Device Grab bar 05/31/2025 2:08 PM EST [place], Mariluz Type of Transfer Ambulation;To toilet 05/31/2025 2:08 PM EST [place], Mariluz Level of [place] Modified independence 05/13 2:08 PM EST [place], Mariluz Physical/Nonphysical Assist Supervision;Verbal Cues 05/28/2025 3:27 PM Riana Ruiz * Postural Appearance Question Answer Date of Assessment Author Posture WFL 05/31/2025 2:08 PM EST Stangl etjorge Mariluz * UE Dressing Question Answer Date of Assessment Author UE Dressing Where Assessed Edge of bed 05/28/2025 3:2 7 PM Riana Ruiz UE Dressing Level of Assistance Setup 3:27 PM Riana Ruiz * Lower Extremity Dressing Question Answer Date of Assessment Author ABDIRIZAK Dressing Where Assessed Edge of bed 05/28/2025 3:2 7 PM Riana Ruiz Shoe Level of Assistance Close supervision 05/28/2025 3:27 PM Riana Ruiz * Toileting Question Answer Date of Assessment Author Where Assessed Toilet 05/28/2025 3:27 PM Riana French Toileting Level of Assistance SBA 05/28/2025 3:27 PM Riana Ruiz * Cognition Question Answer Date of Assessment Author Mood/Behavior Alert 05/28/2025 3:27 PM Riana Ruiz Overall Cognitive Status WFL 025 3:27 PM Riana Ruiz Arousal/Alertness Appropriate response s to stimuli 05/28/2025 3:27 PM Riana Ruiz Attention Span Appears intact 05/28/2025 3:27 PM Riana Ruiz Safety Judgment Good awareness of safety precautions 05/28/2025 3:27 PM Riana Ruiz Awareness of Errors Good awareness of errors made 05/28/2025 3:27 PM Riana Ruiz Method of Communication Verbal 05/28/20 25 3:27 PM Riana Ruiz Single Step Commands Consistently 05/28/2025 3:27 PM Riana Ruiz Multi-Step Commands Consistently 05/28/2025 3 :27 PM Riana Ruiz * General Question Answer Date of Assessment Author Next PT Re-Assessment Date [id number] 05/25/2025 2:1 8 PM Alexsander Cosby * Plan Question Answer Date of Assessment Author Predicted Duration of Therapy 2 weeks 05/25/2025 2:24 PM Alexsander Cosby Demonstrates Need for Referral to Another Service Studio Hand/spiritual care 05/25/2025 2:24 PM Alexsander Cosby Discharge Recommendation Home with assistance;Outpatien t PT 05/25/2025 2:24 PM Alexsander Cosby Equipment Recommended Rollator 05/25/2025 2:24 PM Alexsander Cosby PT - OK to Discharge Yes 05/25/2025 2:24 PM Alexsander Pratt Planned PT Interventions Balance trainin g;Bed mobility training;Gait training;Transfer training;Neuromuscul ar re-education;Stretch ing;Strengthening;RO M;Functional Mobility 05/25/2025 2:24 PM Alexsander Cosby Therapy Frequency 2 - 5 times per week 05/25/2025 2:24 PM Alexsander Cosby * Gait Training Question Answer Date of Assessment Author Device Rollator 05/31/2025 2:08 PM EST [place] Mariluz Apparatus None 05/31/2025 2:08 PM EST [place] Mariluz Assistance Modified independence 05/31/2025 2:08 PM EST [place], Mariluz Distance 250ft 05/31/2025 2:08 PM EST [place] Mariluz Gait Analysis Reciprocal gait leilani bhaskar w/ no overt LOB; decreased jayshree and step length bilaterally 05/31/2025 2:08 PM EST [place] Mariluz Gait Training Interventions Cueing for rollator management; pt performed obstacle navigation, dual tasks, and pathfinding while ambulating 05/31/2025 2:08 PM EST Xiomara Borregoyla * PT Assessment Question Answer Date of Assessment Author Activity Limitations Inability to comple te ADLs independently;Inability to transfer independently;Inability to ambulate community distances 05/25/2025 2:24 PM Alexsander Cosby Participation Restrictions Self-care;Home management 05/25/2025 2:24 PM Alexsander Cosby History Profile 1 - 2 personal facto rs and/or comorbidities 05/25/2025 2:24 PM Alexsander Cosby Impairments Decreased range of motion;Decreased strength;Impaired gait dynamics/performance;Impa ired locomotion;Impaired functional mobility/transfers;Impair ed balance 05/25/2025 2:24 PM Alexsander Cosby Evaluation/Treatment Tolerance Patient limited by fatigue 05/25/2025 2:24 PM Alexsander Cosby Diagnosis Impaired functional mobility 05/25/2025 2:24 PM Alexsander Cosby Clinical Presentation Stable and/or uncomplicated characteristics 05/25/2025 2:24 PM Alexsander Cosby Clinical Decision Making Low complexity 05/25/2025 2:24 PM Alexsander Cosby Rehab Potential Good, to achieve sta katie therapy goals 05/25/2025 2:24 PM Alexsander Cosby Activity Tolerance Standing;Walking;Juliana erate s 30 min activity with multiple rests 05/25/2025 2:24 PM EST Alexsander Robledo * Ambulation Question Answer Date of Assessment Author Distance 50ft 05/28/2025 3:26 PM EST Conkeyur etjorge, Mariluz Device Rolling walker 05/28/2025 3:26 PM EST [place], Mariluz Apparatus None 05/28/2025 3:26 PM EST [place], Mariluz Assistance Standby assist 05/28/2025 3:26 PM EST [place], Mariluz Ambulation Comments Reciprocal gait leilani bhaskar w/ shuffling gait 05/28/2025 3:26 PM EST Xiomara Borregoyla * Plan of Care Reviewed With Answer Date of Assessment Author patient 05/31/2025 1:18 PM Marielena Ramos RN * Pressure Injury Prevention (PIP) Interventions Question Answer Date of Assessment Author Pressure Reducing Devices Pillow 05/31/2025 8:00 AM Sharri Ramos RN Mattress Acute care mattress 05/25/2025 7:45 PM Malia Leavitt LPN Bed Type Acute Care Bed 05/31/2025 8:00 AM Sharri Baker RN * Vital Signs Question Answer Date of Assessment Author BP 117/72 05/31/2025 11:36 AM JUAREZ vega, Doc Flowsheet In Temp 98.1 05/31/2025 11:36 AM JUAREZ vega Doc Flowsheet In Pulse 84 05/31/2025 11:36 AM JUAREZ vega Doc Flowsheet In Heart Rate Source Monitor 05/31/2025 7:45 AM Sharri Ramos RN MAP (mmHg) 87 05/31/2025 11:36 AM JUAREZ vega Doc Flowsheet In * Oxygen Therapy Question Answer Date of Assessment Author SpO2 97 05/31/2025 11:36 AM Shon Aaron Flowsheet In Oximetry Probe Site Location Left Digit 05/24/2025 3:16 AM EST Tristan Villafana * Neurological Question Answer Date of Assessment Author Neuro (WDL) WDL 05/24/2025 12:00 PM Tracy Kulkanri RN * Gastrointestinal Question Answer Date of Assessment Author Most Recent BM Date [id number] 05/31/2025 8:00 AM Sharri Henderson RN Passing Flatus No 05/30/2025 4:00 PM Oly Keating RN Abdominal Tenderness Nontender 05/31/2025 4:00 AM Jarvis Holly RN Bowel Sounds (All Quadrants) Present 05/31/2025 4 :00 AM Jarvis Bishop RN Gastrointestinal (WDL) X 05/31/2025 8:00 AM Sharri Ramos RN Abdomen Inspection Rounded 05/31/2025 8:00 AM Sharri Ramos RN GI Symptoms Distention 05/31/2025 4:00 AM Jarvis Tirado RN Gastrointestinal Additional Assessments No 05/26/2025 4:00 AM Malia Wynne LPN * Peripheral Vascular Question Answer Date of Assessment Author Peripheral Vascular (WDL) X 05/31/2025 8:00 AM Sharri Ramos RN RLE Edema +2 05/31/2025 8:00 AM Sharri Akhtar RN LLE Edema +2 05/31/2025 8:00 AM Sharri Akhtar RN Capillary Refill Less than/equal to 2 seconds (All extremities) 05/31/2025 4:00 AM Jarvis Bishop RN Pulses L radial;R radial 05/31/2025 4:00 AM Jarvis Bishop RN Cyanosis None 05/31/2025 4:00 AM Jarvis Tirado RN Edema Right lower extremity;Left lower extremity 05/31/2025 4:00 AM Jarvis Bishop RN * RUE Neurovascular Assessment Question Answer Date of Assessment Author R Radial Pulse +2 05/31/2025 4:00 AM Jarvis Ortiz RN * LUE Neurovascular Assessment Question Answer Date of Assessment Author L Radial Pulse +2 05/31/2025 4:00 AM Jarvis Ortiz RN * RLE Neurovascular Assessment Question Answer Date of Assessment Author R Pedal Pulse +1 05/31/2025 4:00 AM Jarvis Mendez RN * LLE Neurovascular Assessment Question Answer Date of Assessment Author L Pedal Pulse +1 05/31/2025 4:00 AM EST Jarvis Callaway RN * Musculoskeletal Question Answer Date of Assessment Author RUE Full movement 05/27/2025 4:00 PM EST OsNabeel stapleton RN RLE Weakness 05/31/2025 8:00 AM EST Sharri Smith RN LUE Full movement 05/27/2025 4:00 PM EST OsNabeel stapleton RN LLE Weakness 05/31/2025 8:00 AM EST Sharri Smith RN Musculoskeletal (WDL) X 05/31/2025 8:00 AM Sharri Ramos RN Musculoskeletal Additional Assessments No 05/26/2025 4:00 AM EST Malia Medina LPN * Urine Assessment Question Answer Date of Assessment Author Urinary Incontinence No 05/31/2025 4:00 AM E Jarvis Marks RN * Psychosocial Question Answer Date of Assessment Author Psychological state Calm;Cooperative 05/31/2025 8:00 A M Sharri Ramos RN Needs Expressed Physical 05/31/2025 4:00 AM EST Jarvis Gutierrez RN Psychosocial (WDL) WDL 05/31/2025 8:00 AM Sharri Ramos RN * [place] Fall Risk Question Answer Date of Assessment Author History of Falling, Immediat e or Within 3 Months 0 05/31/2025 8:00 AM Sharri Ramos RN Secondary Diagnosis 15 05/31/2025 8:00 AM Sharri Henderson RN Ambulatory Aid 0 05/31/2025 8:00 AM Sharri Baker RN Intravenous Therapy/Heparin Lock 20 05/31/20 25 8:00 AM Sharri Ramos RN Gait/Transferring 10 05/31/2025 8:00 AM Sharri Ramos RN Mental Status 0 05/31/2025 8:00 AM Sharri Pastor RN [place] Fall Risk Score 45 05/31/2025 8:00 AM Sharri Ramos RN * Mando Scale Question Answer Date of Assessment Author Sensory Perceptions 3 05/31/2025 8:00 AM Sharri Henderson RN Moisture 4 05/31/2025 8:00 AM Sharri Akhtar RN Activity 3 05/31/2025 8:00 AM Sharri Akhtar RN Mobility 3 05/31/2025 8:00 AM Sharri Akhtar RN Nutrition 3 05/31/2025 8:00 AM Sharri Akhtar RN Friction and Shear 3 05/31/2025 8:00 AM Sharri Ramos RN Mando Scale Score 19 05/31/2025 8:00 AM Sharri Ramos RN * BSA (Calculated - sq m) Answer Date of Assessment Author 2.05 05/31/2025 12:04 PM Ernie oCoper * BMI (Calculated) Answer Date of Assessment Author 35.24 05/31/2025 12:04 PM Ernie Cooper * Cardiac Question Answer Date of Assessment Author Tick Sewer On No 05/30/2025 4:00 PM Oly Norton RN Cardiac (WDL) WDL 05/31/2025 8:00 AM Sharri Pastor RN Heart Sounds S1, S2 05/31/2025 4:00 AM Jarvis Tirado RN Telemetry/Restaurant And Bar Manager No 05/31/2025 4:00 AM Jarvis Bishop RN Jugular Venous Distention (JVD) No 4:00 AM Jarvis Bishop RN * Respiratory Question Answer Date of Assessment Author Bilateral Breath Sounds Diminished 05/31/2025 8:00 A M Sharri Ramos RN Respiratory Pattern Regular 05/31/2025 4:00 AM Jarvis Wilkins RN Chest Assessment Symmetrical 05/31/2025 4:00 AM Jarvis Sanchez RN Respiratory (WDL) X 05/31/2025 8:00 AM Sharri Ramos RN Respiratory Effort Unlabored 05/31/2025 4:00 AM Jarvis Bishop RN Respiratory Depth/Rhythm Regular 05/31/2025 4:00 AM Jarvis Bishop RN * RLE ROM Assessment Question Answer Date of Assessment Author RLE Assessment WFL 05/25/2025 2:24 PM EST Alexsander Swan * LLE ROM Assessment Question Answer Date of Assessment Author LLE Assessment WFL 05/25/2025 2:24 PM Alexsander Dunbar * Vitals Question Answer Date of Assessment Author Tempaul src Oral 05/31/2025 11:36 AM Fernando Hughes Resp 16 05/31/2025 11:36 AM Fernando Hughes Weight 3286.4 05/31/2025 12:04 PM EST Fernando Pickard BP Location Right arm 05/31/2025 11:36 AM Fernando Hughes BP Method Automatic 05/31/2025 11:36 AM Fernando Hughes Pulse Oximetry Type Intermittent 05/27/2025 3:21 PM Lien Auguste Patient Activity During SpO2 Measurement At rest 05/27/2025 3:21 PM Lien Mojica Patient Position Sitting 05/31/2025 11:36 AM Fernando Cooper * Point of Care Tests Question Answer Date of Assessment Author Provider Role Resident 05/27/2025 8:35 AM Nabeel Hui RN Provider Name Alison Burns 05/27/2025 8:35 AM Nabeel Hui RN Method of Communication Secure message 05/27/2025 8:35 AM Nabeel Ascencio RN Reason for Communication Evaluate 05/27/2025 8:35 AM Nabeel Ascencio RN Response Other (Comment) 05/27/2025 8:35 AM Nabeel Childers RN * Patient Information Question Answer Date of Assessment Author Support System Immediate family 05/25/2025 11:21 AM Betzaida Wilks * Activities of Daily Living Question Answer Date of Assessment Author Living Arrangements Family 05/25/2025 11:21 AM Betzaida Michaud Type of Residence Single Level 05/25/2025 11:21 AM Betzaida Vivar * Income Information Question Answer Date of Assessment Author Income Source Government aid 05/25/2025 11:21 AM Betzaida Holcomb * Advance Directives (For Healthcare) Question Answer Date of Assessment Author Advance Directive Patient does not hav e advance directive 05/25/2025 11:22 AM Betzaida Vivar Pre-existing DNR/DNI Order No 05/25/2025 11:22 AM Betzaida Vivar Information Provided on Healthcare Directives Yes 05/25/2025 11:22 AM Betzaida Vivar Patient Requests Assistance No 05/25/2025 11:22 AM Betzaida Vivar Have you reviewed your Advance Directive and is it valid for this stay? Not applicable 05/25/2025 11:22 AM Emiliano Vivar * Nutrition Screen Question Answer Date of Assessment Author Difficulty Chewing or Swallowing No 05/24/2025 9:00 PM Betzaida Johnson LPN Burn, Pressure Injury, or Non-Healing Wound No 05/24/2025 9:00 PM Betzaida Johnson LPN Home Tube Feeding or Total Parenteral Nutrition (TPN) No 05/24/2025 9:00 PM Betzaida Johnson LPN Food allergy, Druze, or Cultural nutrition needs No 05/24/2025 9:00 PM Garrett Johnson LPN * Pain Descriptors Answer Date of Assessment Author Aching 05/30/2025 5:23 PM Xochitl Mercedes RN * Pain Onset Answer Date of Assessment Author Ongoing 05/30/2025 5:23 PM Xochitl Mercedes RN * Pain Frequency Answer Date of Assessment Author Constant/continuous 05/30/2025 5:23 PM Oly Mercedes RN * Trauma/Abuse Assessment Question Answer Date of Assessment Author Physical Abuse Denies 05/24/2025 9:00 PM Betzaida Kaufman LPN Verbal Abuse Denies 05/24/2025 9:00 PM Betzaida Heart LPN * Values/Beliefs Question Answer Date of Assessment Author Cultural Requests During Hospitalization none 05/24/2025 9:00 PM Betzaida Johnson LPN Spiritual Requests During Hospitalization none 05/24/2025 9:00 PM Betzaida Johnson LPN Unable to assess No 05/24/2025 9:00 PM Betzaida Rowe LPN * Genitourinary Question Answer Date of Assessment Author Genitourinary ([facility]) [facility] 05/31/2025 8:00 AM Sharri Henderson, CORWIN * Neurological Question Answer Date of Assessment Author Level of Consciousness Alert 05/31/2025 4:00 AM Jarvis Bishop RN Orientation Level Oriented X4 05/31/2025 4:00 AM Jarvis Bishop RN Cognition Follows commands 05/31/2025 4:00 AM Jarvis Sanchez RN Speech Clear 05/31/2025 4:00 AM Jarvis Tirado RN Neuro ([facility]) WD 05/31/2025 8:00 AM Sharri Akhtar RN * Prior Function Question Answer Date of Assessment Author Level of Mobility Ambulatory- community 05/28/2025 3:2 7 PM Riana Ruiz Mobility [place] Independent gait w ith device 05/28/2025 3:27 PM Riana Ruiz History of Falls Yes 05/28/2025 3:27 PM Riana Arguello ADL Performance Needs assistance 05/28/2025 3:27 PM Riana Quick Bathing Independent 05/28/2025 3:27 PM Riana Cazares Upper Body Dressing Independent 05/28/2025 3:27 PM Riana Quick Lower Body Dressing Independent 05/28/2025 3:27 PM Riana Quick Grooming Independent 05/28/2025 3:27 PM Riana Cazares Toileting Independent 05/28/2025 3:27 PM Riana Cazares Eating Independent 05/28/2025 3:27 PM Riana Ruiz Home Management Skills Needs assist 05/28/2025 3:27 PM Riana Ruiz * RUE ROM Assessment Question Answer Date of Assessment Author RUE Assessment [facility] 05/25/2025 2:24 PM EST Alexsander Swan * LUE ROM Assessment Question Answer Date of Assessment Author LUAddison Assessment [facility] 05/25/2025 2:24 PM Alexsander Dunbar * Safe Environment Question Answer Date of Assessment Author 37-Pin Connection [Bed and Wall] Yes 05/30/2025 8:00 AM Oly Mercedes RN Arm Bands On ID 05/31/2025 8:00 AM Sharri Akhtar RN Side Rails/Bed Safety 2/4 05/31/2025 8:00 AM Sharri Ramos RN NonSkid Footwear On;Patient in bed 05/30/2025 4:00 PM Oly Mercedes RN The Patient's Environment is Safe Yes 05/31/2025 8:00 AM Sharri Ramos RN Head of Bed Angle 30 05/27/2025 4:00 PM Nabeel Ascencio RN Bed Foot Left Rail Up State No 05/28/2025 8:00 PM Carlos Enrique Zavala RN Bed Head Right Rail Up State Yes 05/28/2025 8:00 PM Carlos Enrique Zavala RN Bed Head Left Rail Up State Yes 05/28/2025 8:00 PM Carlos Enrique Zavala RN Bed Foot Right Rail Up State No 05/28/2025 8:00 PM Carlos Enrique Zavala RN Bed Exit System Activate Status No 05/28/2025 8:00 PM Carlos Enrique Zavala RN Bed Brake State Yes 05/28/2025 8:00 PM Carlos Enrique Aguilera RN Bed Low Height State No 05/28/2025 8:00 PM E Carlos Enrique Vázquez RN Chair Exit System Activate Status No 05/30/2025 8:00 AM Oly Mercedes RN * Fall Risk Interventions Question Answer Date of Assessment Author Safety Promotion/Fall Prevention activity supervised;assistive device/personal items within reach;clutter-free environment maintained;fall prevention program maintained;nonskid shoes/slippers when out of bed;room organization consistent;safety round/check completed 05/31/2025 8:00 AM Sharri Ramos RN Enhanced Safety Measures education provided 05/31/2025 8:00 AM Sharri Ramos RN Toilet Every 2 Hours-In Advance of Need Yes 05/30/2025 8:00 AM Oly Mercedes RN Hourly Visual Checks Awake 05/31/2025 8:00 AM Sharri Ramos RN Room Door Open Deferred to decrease stimulation;Deferred to promote rest 05/30/2025 8:30 PM Jarvis Bishop RN Gait Belt Used For Transfers Not applicable 05/30/2025 8:30 PM Jarvis Bishop RN Fall Bundle Components Call light within reach;Personal belongings within reach;Overbed table within reach;Bed in lowest position;Bed wheels locked;Non-skid footwear on if up in chair or ambulating;Staff to remain with patient during toileting;Fall risk sign on door;Bed alarm on in zone 2 with proper weight settings;Staff to remain with patient during ambulation and tranfers 05/31/2025 8:00 AM Sharri Ramos RN * Mobility Question Answer Date of Assessment Author Range of Motion active ROM (range of motion) encouraged 05/30/2025 8:00 AM Oly Mercedes RN Activity Assistance Provided assistance, stand-by 05/31/2025 8:00 AM Sharri Ramos RN Assistive Device Utilized front wheel walker 05/30/2025 8:00 AM Oly Mercedes RN VTE Prevention/Management medication;education provided 05/31/2025 8:00 AM Sharri Ramos RN Head of Bed (HOB) Positioning HOB elevated 05/30/2025 8:30 PM Jarvis Bishop RN Repositioned Turns self 05/31/2025 8:00 AM Sharri Ramos RN Head of Bed Elevated HOB 30 05/27/2025 4:00 PM Nabeel Ascencio RN Heels/Feet Foot of bed elevated 05/30/2025 8:00 AM Oly Mercedes RN Reason for Removing Anti-Embolism Device Massive edema of extremity 05/30/2025 8:00 AM Oly Mercedes RN Positioning Frequency Able to turn self 05/31/20 25 8:00 AM Sharri Ramos RN * Hygiene Question Answer Date of Assessment Author Bathing/Skin Care linen changed 05/29/2025 8:47 PM Jeniffer Reyes Oral Care oral rinse provided 05/30/2025 8:30 PM Jarvis Wilkins RN Oral Care (Yes/No) Yes 05/30/2025 8:30 PM Jarvis Bishop RN CHG (Chlorhexidine Gluconate) Hygiene Wipes 05/25/2025 7:45 PM Malia Wynne LPN * Precautions Question Answer Date of Assessment Author Precautions Environmental surveillance 05/31/2025 8:0 0 AM Sharri Ramos RN * Comfort and Environment Interventions Question Answer Date of Assessment Author Warm [place] Applied 05/25/2025 7:45 PM Malia Burk LPN Patient Preferences none stated 05/25/2025 4:00 AM Betzaida Cuadra LPN Comfort Repositioned 05/30/2025 8:30 PM Jarvis Tirado RN Additional Comfort/Environmental Interventions Warm blanket 05/26/2025 4:00 AM Malia Wynne LPN * Safety Equipment at Bedside Question Answer Date of Assessment Author Standard Bedside Safety Ambu bags in hallway 05/31/2025 8:00 AM Sharri Ramos RN Additional Bedside Safety Bed in locked and low position;Clutter free environment 05/31/2025 8:00 AM Sharri Ramos RN * Consults Question Answer Date of Assessment Author Integrative Medicine Consult Needed No 05/24/2025 9:00 PM Betzaida Johnson LPN Pastoral Care Consult Needed No 05/24/2025 9 :00 PM Betzaida Johnson LPN Tractor Trailer Technician Consult Needed No 05/24/2025 9:00 PM Betzaida Johnson LPN * Therapy Consults Question Answer Date of Assessment Author PT Evaluation Needed 2 05/24/2025 9:00 PM Betzaida Toth LPN OT Evaluation Needed 2 05/24/2025 9:00 PM Betzaida Toth LPN BOAT CARPENTER MECHANIC Evaluation Needed 2 05/24/2025 9:00 PM Betzaida Johnson LPN * Assistive Devices Question Answer Date of Assessment Author Assistive Devices CPAP 05/24/2025 9:00 PM Betzaida Johnson LPN * Provider Notification Question Answer Date of Assessment Author Notification Time [id number] 05/27/2025 8:35 AM Nabeel Ascencio RN * End of Shift Review Question Answer Date of Assessment Author Shift Review Complete Yes 05/30/2025 8:00 AM Oly Mercedes RN Shift Report Received From Carlos Enrique OLIVIA 05/30/2025 8:0 0 AM Oly Mercedes RN Shift Report Given To Maury OLIVIA 05/30/2025 8:00 AM Oly Mercedes RN * Hourly Rounding Question Answer Date of Assessment Author Hourly Rounding Complete Per Guideline Yes 05/31/2025 10:00 AM Sharri Ramos RN * Patient Violence Risk Assessment Question Answer Date of Assessment Author History of Violence: In the past 12 hours has the PATIENT exhibited any of the following? None 05/31/2025 8:00 AM Sharri Ramos RN Potential for Violence: In the past 12 hours has the PATIENT exhibited any of the following? None 05/31/2025 8:00 AM Sharri Ramos RN Risk No identified risk 05/31/2025 8:00 AM Sharri Ramos RN History of Violence: In the past 12 hours has a PARTNER IN CARE of the patient exhibited any of the following? None 05/31/2025 8:00 AM Sharri Ramos RN * Fluid / Beverage Intake Question Answer Date of Assessment Author Diet Supplements Boost Glucose Control 05/30/2025 3:00 PM EST Jazmín Hwang RD * Mobility Question Answer Date of Assessment Author Ambulation Stand by 05/30/2025 8:00 AM Oly Mercedes RN * Circulation Question Answer Date of Assessment Author Cardiac Rhythm ST 05/24/2025 7:57 PM Jessica Almaraz RN * Disability Question Answer Date of Assessment Author L Pupil Size (mm) 3 05/24/2025 7:57 PM Jessica Hines RN R Pupil Size (mm) 3 05/24/2025 7:57 PM Jessica Hines RN R Pupil Shape Round 05/24/2025 7:57 PM EST Jessica Aburto RN L Pupil Shape Round 05/24/2025 7:57 PM Jessica Benítez RN * Restart Vitals Timer Answer Date of Assessment Author Yes 05/31/2025 11:36 AM Ernie Cooper * STOP-Bang Questionnaire Question Answer Date of Assessment Author Do you snore loudly? 1 05/24/2025 9:[address] Kirstin Betzaida R, TURKEY PICKER Do you often feel tired or fatigued after your sleep? 1 05/24/2025 9:00 PM EST Monjos Betzaida R, TURKEY PICKER Has anyone ever observed you stop breathing in your sleep? 1 05/24/2025 9:00 PM EST Mongiselle i, Betzaida R, TURKEY PICKER Do you have or are you being treated for high blood pressure? 1 05/24/2025 9:00 PM EST Kirstin Betzaida R, TURKEY PICKER Is BMI greater than 35 kg/m2? 1=Yes 05/24/2025 9:00 PM EST Monjos Betzaida R, TURKEY PICKER Age older than 50 years old? 1=Yes 05/24/2025 9 :00 PM EST Mondelli, Betzaida R, TURKEY PICKER Is your neck circumference greater than 17 inches (Male) or 16 inches (Female)? 0 05/24/2025 9:00 PM EST Mondelfunmi Oliv ia R, TURKEY PICKER Gender - Male 0=No 05/24/2025 9:00 PM EST Maura Birdia R, TURKEY PICKER STOP-Bang Total Score 6 05/24/2025 9:00 PM EST Kirstin Betzaida R, TURKEY PICKER Recent BMI (Calculated) 36.8 05/24/2025 9:00 P M EST Kirstin Betzaida R, TURKEY PICKER * Feeding Question Answer Date of Assessment Author Feeding Level of Assistance Independent 05/28/2025 3: 27 PM Riana Ruiz Feeding Where Assessed Chair Level 05/28/2025 3:27 PM Riana Ruiz * Grooming Question Answer Date of Assessment Author Grooming Where Assessed Chair level 05/28/2025 3:27 P M Riana Ruiz Grooming Level of Assistance Setup;SBA 05/28/2025 3 :27 PM Riana Ruiz * Dynamic Standing Balance Question Answer Date of Assessment Author Dynamic Standing Level of Assistance Supervision 05/31/2025 2:08 PM Mariluz Howard Dynamic Standing - Interventions Rollator 05/31/2025 2:05 PM Juana Rangel Dynamic Standing-Balance Support Right upper extremity support;Left upper extremity support 05/31/2025 2:08 PM Mariluz Howard Dynamic Standing-Balance Lateral weight shifts;Anterior/Soybean Grower ior weight shifts 05/31/2025 2:08 PM Mariluz Howard * General Question Answer Date of Assessment Author Next OT Reassessment [id number] 05/28/2025 3:27 PM Riana Sharp Patient/Family Goals Statement Pt would like to get a liver transplant so she can spend time with her grandchildren. 05/28/2025 3:27 PM Riana Ruiz * Home Living Question Answer Date of Assessment Author Home Type House 05/28/2025 3:27 PM JUAREZ Riana Medley Number of Stairs 4 05/28/2025 3:27 PM Riana Arguello Bathroom: Tub/Shower Walk-in shower;Tub/Shower combo;Shower chair 05/28/2025 3:27 PM Riana Ruiz Bathroom: Toilet Standard 05/28/2025 3:27 PM Riana Arguello Bathroom: Accessibility Accessible 05/28/2025 3:27 P M Riana Ruiz Home Living Comments Pt states she will be staying at her sister's house in [place] at discharge. 05/28/2025 3:27 PM Riana Ruiz Home Layout One level;Stairs to enter with rails 05/28/2025 3:27 PM Riana Ruiz Home Adaptive Equipment Cane;shower chair 05/28/2025 3 :27 PM Riana Ruiz Lives With Sister 05/28/2025 3:27 PM JUAREZ Riana Medley * Date of PT Session Question Answer Date of Assessment Author PT Initials [facility] 05/31/2025 2:08 PM Mariluz Pal Date of PT Session [id number] 05/31/2025 2:08 PM Mariluz Howard * Calculated C-SSRS Risk Score (Lifetime/Recent) Answer Date of Assessment Author No Risk Indicated 05/31/2025 8:00 AM Sharri Ramos RN * Gipsy Coma Scale Question Answer Date of Assessment Author Best Eye Response Spontaneous 05/31/2025 8:00 AM Sharri Ramos RN Best Verbal Response Oriented 05/31/2025 8:00 AM Sharri Nino RN Best Motor Response Follows commands 05/31/2025 8:00 A M Sharri Ramos RN Michael Coma Scale Score 15 05/31/2025 8:00 AM Sharri Ramos RN * Care Handoff Question Answer Date of Assessment Author Handoff Received From Jessica Jefferson RN 05/24/2025 7:25 PM Jessica Hines RN * Learning Assessment Question Answer Date of Assessment Author Education Level College 05/24/2025 3:23 AM Sanjuana Ware RN Factors that Impact Ability to Learn None 05/24/2025 3:23 AM Sanjuana Iraheta RN Cultural Considerations None 05/24/2025 3:23 A M Sanjuana Iraheta RN Druze Considerations None 05/24/2025 3:23 AM Sanjuana Iraheta RN * VARUN 1 Fall Risk Factor Assessment Question Answer Date of Assessment Author Presented to ED because of fall 0 05/24/2025 3:23 AM Sanjuana Iraheta RN Age > 70 0 05/24/2025 3:23 AM Sanjuana Iraheta RN Intoxicated with alcohol or substance confusion 0 05/24/2025 3:23 AM Sanjuana Iraheta RN Ambulates or transfers with assistive devices or assist 0 05/24/2025 3:23 AM Sanjuana Iraheta RN Unable to ambulate or transfer 0 05/24/2025 3:23 AM Sanjuana Iraheta RN Nursing judgement 1 05/24/2025 3:2 3 AM Sanjuana Iraheta RN KINDER 1 Fall Risk Score 1 025 3:23 AM Sanjuana Iraheta RN High Fall Risk Interventions for Scores 1 and above Fall risk bundle components in place as defined below;Fall risk sign on door;Alarms set and confirmed;Call light within reach;Side rails raised;Bed in lowest position and locked;Non-skid socks on patient as appropriate;Belongings within reach 05/24/2025 3:23 AM Sanjuana Iraheta RN * Patient Belongings Placed in Locker Question Answer Date of Assessment Author Belongings at Bedside None 05/24/2025 3:24 AM Sanjuana Iraheta RN * Weight in (lb) to have BMI = 25 Answer Date of Assessment Author 145.4 05/30/2025 3:[address] * Anthropometrics Question Answer Date of Assessment Author Height 64.016 05/30/2025 3:[address] * Pain Assessment Question Answer Date of Assessment Author Pain Location Head 05/30/2025 6:23 PM Oly Pizano RN Pain Orientation Bilateral 05/30/2025 6:23 PM Oly Watson RN Patient's Stated Pain Goal No pain 05/30/2025 1:04 AM Carlos Enrique Zavala RN Patient is asleep Yes, assume pain is decreased 05/25/2025 4:18 AM Betzaida Johnson LPN Pain Type Acute pain 05/30/2025 6:23 PM Oly Mercedes RN Clinical Progression Gradually improving 05/30/2025 6: 23 PM Oly Mercedes RN Pain Score 0 05/31/2025 7:45 AM Sharri Akhtar RN Pain Assessment 0-10 (Adult DVPRS/Peds 0-10) 05/31/2025 7:45 AM Sharri Ramos RN * Nutrition Question Answer Date of Assessment Author Fluid Restrictions 2000 05/30/2025 8:30 PM Jarvis Bishop RN Diet Type 2 gram sodium diet 05/31/2025 8:00 AM Sharri Ramos RN Feeding Able to feed self 05/31/2025 8:00 AM Sharri Ramos RN Appetite Fair 05/30/2025 8:30 PM Jarvis Tirado RN * Vent Information Question Answer Date of Assessment Author Vent Mode CPAP 05/25/2025 12:15 AM Marcia Hammond O2 Delivery Method CPAP/Bi-PAP mask 05/25/2025 12:15 A M Marcia Velasquez * Respiratory Interventions Question Answer Date of Assessment Author Respiratory Interventions Cough and deep breathing 05/31/2025 8:00 AM Sharri Ramos RN * Cough and Deep Breathe Question Answer Date of Assessment Author Cough And Deep Breathing done independently per patient 05/31/2025 8:00 AM Sharri Ramos RN * Patient Belongings Sent to Safe/Security Question Answer Date of Assessment Author Belongings Sent to Safe/Security None 05/24/20 3:24 AM Sanjuana Iraheta RN * Integumentary Question Answer Date of Assessment Author Skin Color Jaundice 05/31/2025 8:00 AM Sharri Akhtar RN Skin Condition/Temp Warm;Dry 05/31/2025 4:00 AM Jarvis Wilkins RN Skin Integrity Bruising 05/31/2025 8:00 AM Sharri Baker RN Skin Turgor Non-tenting 05/31/2025 4:00 AM Jarvis Tirado RN Bruising Characteristics generalized 05/30/2025 8:00 AM Oly Mercedes RN Integumentary (WDL) X 05/31/2025 8:00 AM Sharri Henderson RN * Patient Belongings Sent Home Question Answer Date of Assessment Author Belongings Sent Home Electronic devices 05/31/2025 1:0 0 PM Sharri Ramos RN Patient Electronics Cell phone 05/31/2025 1:00 PM Sharri Henderson RN * Confusion Assessment Method (CAM) Question Answer Date of Assessment Author Acute Onset and Fluctuating Course (1A) No 05/31/2025 4:00 AM Jarvis Bishop R N * Confusion Assessment Method-ICU (CAM-ICU/PCAM-ICU) Question Answer Date of Assessment Author Feature 3: Altered Level of Consciousness Negative 05/31/2025 2:08 PM EST [place], Mariluz * Urine Output/Assessment Question Answer Date of Assessment Author Urine Color Yellow/straw 05/30/2025 4:00 PM Oly Mercedes RN Urine Appearance Clear 05/30/2025 4:00 PM Oly Watson RN Urine Odor No odor 05/30/2025 4:00 PM Oly Mercedes RN * Stool Output/Assessment Question Answer Date of Assessment Author Unmeasured Stool Occurrence (hourly total) 1 05/26/2025 8:00 AM Ernie Barrientos RN Stool Amount Unable to assess 05/26/2025 8:00 AM rEnie Powell RN Stool Appearance Loose 05/26/2025 8:00 AM Ernie Powell RN Bowel Incontinence No 05/26/2025 8:00 AM Ernie Barrientos RN * Patient Specific Goals Question Answer Date of Assessment Author Patient/Family-Specific Goals (Include Timeframe) Patient will be free from harm throughout this shift 05/31/2025 8:00 AM Sharri Ramos RN Individualized Care Needs Safety 2024 8:00 AM Sharri Ramos RN Anxieties, Fears or Concerns Going home 05/31/2025 8:00 AM Sharri Ramos RN * Delirium Assessment Question Answer Date of Assessment Author Delirium Prevention & Management Yes 05/30/2025 4:00 PM Oly Mercedes RN Delirium Prevention & Management: Early Mobility Ambulate to extent of patient's ability;Educate patient and family about the benfits of early mobility in the hospital 05/30/2025 4:00 PM Oly Mercedes RN Delirium Prevention & Management: Cognitive Engagement Delirium prevention education provided to patient and family;Reorienting communication 05/30/2025 4:00 PM Oly Mercedes RN Delirium Prevention & Management: Optimize Sleep/Wake Cycles Natural light during the day;Educate patient and family about optimizing sleep 05/30/2025 4:00 PM Oly Mercedes RN Delirium Scale Used Confusion Assessment Method 05/31/2025 4:00 AM Jarvis Bishop RN * Vent Settings (Invasive or Non Invasive) Question Answer Date of Assessment Author FiO2 (%) 21 05/25/2025 12:15 AM EST Marcia Castillo Mask Size Small 05/25/2025 12:15 AM EST Marcia Castillo * Hyperglycemia Management Answer Date of Assessment Author blood glucose monitored 05/31/2025 1:18 PM Sharri Benjamin, CORWIN * Hypoglycemia Management Answer Date of Assessment Author blood glucose monitored 05/31/2025 2:47 AM EST Jarvis Gomez, CORWIN * Cardiac Question Answer Date of Assessment Author Pacemaker No 05/24/2025 3:46 AM EST Sanjuana Kingston, CORWIN * Hourly Rounding Question Answer Date of Assessment Author Activity Assistance Patient independent 05/24/2025 4:2 6 AM Sanjuana Iraheta RN Call Light Call light present a nd within reach 05/24/2025 4:40 PM Tracy Araya RN Rest/ Sleep Appeared asleep 05/24/2025 4:40 PM Tracy Wolf, RN Completed Hourly Rounding Yes 05/24/2025 4:40 PM Tracy Araya , CORWIN Plan of Care Reviewed With Patient 05/24/2025 4:26 AM Sanjuana Iraheta , CORWIN * Standardized Assessments Question Answer Date of Assessment Author Standardized Assessments SPPB 05/28/2025 3:26 PM Mariluz Howard Ampac 6-Click Daily Activities Question Answer Date of Assessment Author Help from Other: Don/Doff Re gular Lower Body Clothings 3 05/25/2025 2:12 PM Riana Ruiz Help From Other: Bathing 3 05/25/2025 2:12 PM Riana Ruiz Help From Other: Toileting 3 05/25/2025 2:1 2 PM Riana Ruiz Help From Other: Don/Doff Up per Body Clothings 4 05/25/2025 2:12 PM Riana Ruiz Help From Other: Grooming 4 05/25/2025 2:12 PM Riana Ruiz Help From Other: Eating Meals 4 05/25/2025 2:12 PM Riana Ruiz 6 Click - Daily Activities Score 21 2:12 PM Riana Ruiz * Short Physical Performance Battery Question Answer Date of Assessment Author Short Physical Performance Battery Performed 2024 3:26 PM EST Mariluz Borrego Balance Score 4 05/28/2025 3:26 PM EST Mariluz Bolton Walk Score (4 Meter Walk) 2 05/28/2025 3:26 PM EST Mariluz Borrego Chair Stand Score 1 05/28/2025 3:26 PM EST Mariluz Borrego Total Score 7 05/28/2025 3:26 PM EST Mariluz Michelle * Standardized Tests Question Answer Date of Assessment Author Standardized Tests MOCA 05/31/2025 2:05 PM EST Frank Juana * Visuospatial/Executive Points Question Answer Date of Assessment Author Alternate [place] Marking 1 05/31/2025 2:05 P M EST Juana Marie Visuoconstructional Skills (Cube) 1 025 2:05 PM EST Frank Juana Contour 1 05/31/2025 2:05 PM EST Frank, Juana Numbers 1 05/31/2025 2:05 PM EST Marie, Juana Hands 0 05/31/2025 2:05 PM EST Marie, Juana Visuospatial/Executive Total 4 05/31/2025 2 :05 PM EST Marie, Juana * Naming Question Answer Date of Assessment Author Hipolito 1 05/31/2025 2:05 PM EST Marie, Juana Rhinoceros 1 05/31/2025 2:05 PM EST Marie, Juana Camel 1 05/31/2025 2:05 PM EST Marie, Juana Naming Points 3 05/31/2025 2:05 PM EST Marie , Juana * Memory Question Answer Date of Assessment Author 1st Trial Face;Velvet;Tenriism;Tanika;Red 05/31/2025 2 :05 PM EST Marie, Juana * Attention Question Answer Date of Assessment Author Forward Digit Span 1 05/31/2025 2:05 PM EST Frank Juana Forward Digit Span 1 05/31/2025 2:05 PM EST Marie, Juana Vigilance 1 05/31/2025 2:05 PM EST Frank, [place] Serial 7's 3 05/31/2025 2:05 PM EST Marie, Juana Attention Points 6 05/31/2025 2:05 PM EST Gauri silvaneel Juana * Language Question Answer Date of Assessment Author Sentence Repetition 2 05/31/2025 2:05 PM EFRAÍN Marie Juana Verbal Fluency 1 05/31/2025 2:05 PM EST Tianna shaikh Juana Language Points 3 05/31/2025 2:05 PM EST Abrams hn Juana * Abstraction Question Answer Date of Assessment Author Similarities/Abstraction Points 2 2:05 PM EST Frank Juana * Delayed Recall Question Answer Date of Assessment Author Delayed Recall 3 05/31/2025 2:05 PM EST Hah neel Juana * Orientation Question Answer Date of Assessment Author Date 1 05/31/2025 2:05 PM EST Marie, Ju[place] Month 1 05/31/2025 2:05 PM EST Marie , [place] Year 1 05/31/2025 2:05 PM EST Marie, [place] Day 1 05/31/2025 2:05 PM EST Marie, Ju[place] Place 1 05/31/2025 2:05 PM EST Marie, [place] City 1 05/31/2025 2:05 PM EST Marie, [place] 12 Years of Education or Less 1 05/31/2025 2:05 PM EST Frank Juana Oritentation Points 7 05/31/2025 2:05 PM ES Amos Marie [place] Total MOCA Score 28 05/31/2025 2:05 PM EST Gauri samm Juana * Elopement Risk Screen Question Answer Date of Assessment Author Does the patient exhibit any of the following behaviors? No 05/31/2025 8:00 AM Sharri Ramos RN Does the patient have a cour t ordered legal guardian? No 05/31/2025 8:00 AM Magdalena Ramos RN * Manual Muscle Testing - LLE Question Answer Date of Assessment Author Manual Muscle Testing WFL 05/25/2025 2:24 PM Alexsander Cosby * Manual Muscle Testing - RUE Question Answer Date of Assessment Author Manual Muscle Testing - RUE WFL 05/25/2025 2: 24 PM Alexsander Cosby * Manual Muscle Testing - LUE Question Answer Date of Assessment Author Manual Muscle Testing - NANCY WFL 05/25/2025 2: 24 PM EST Alexsander Robledo * Participants in Care Question Answer Date of Assessment Author Renovation Plant Supervisor N/A 05/31/2025 2:08 PM EST Mariluz Michelle Family/Caregiver Present N 05/31/2025 2:08 PM EST Salima Mariluz * Dynamic Sitting Balance Question Answer Date of Assessment Author Level of Assistance Independent 05/31/2025 2:08 PM ES T [place], Mariluz Dynamic Sitting-Balance Support Feet supported 05/31/2025 2:08 PM EST [place], Mariluz Dynamic Sitting-Balance Anterior/Posteri or weight shifts;Lateral weight shifts 05/31/2025 2:08 PM EST Xiomara Borregoyla * Cognition Question Answer Date of Assessment Author Orientation Level Oriented X4 05/25/2025 2:24 PM Alexsander Cosby * Static Sitting Balance Question Answer Date of Assessment Author Static Sitting-Level of Assistance Independent 05/31/2025 2:08 PM EST [place], Mariluz Static Sitting-Balance Support Feet supported 05/31/20 2:08 PM EST [place], Mariluz * Static Standing Balance Question Answer Date of Assessment Author Static Standing-Level of Assistance Supervision 05/31/2025 2:08 PM EST Xiomara Borregoyla Static Standing - Interventions Rollator 05/31/2025 2:05 PM EST Juana Marie Static Standing-Balance Support Right upper extremity support;Left upper extremity support 05/31/2025 2:08 PM EST Xiomara Borregoyla * OT Assessment Question Answer Date of Assessment Author OT Assessment Results Impaired ADL performance;Decreased upper extremity strength;Impaired functional mobility;Impaired IADL performance;Decreased endurance/ventilation/ga s exchange;Decreased gross motor control/coordination;Imp aired balance 05/25/2025 2:12 PM EST Riana Almaraz Occupational Profile Expanded review of medical/therapy records and additional review of physical, cognitive, or psychosocial history 05/25/2025 2:12 PM Riana Ruiz Clinical Decision Making Moderate 025 2:12 PM Riana Ruiz Barriers to Discharge Comorbidities 05/25/2025 2:12 PM Riana Ruiz Overall Eval complexity Moderate 05/25/20 25 2:12 PM Riana Ruiz Rehab Potential Good, to achieve sta katie therapy goals 05/25/2025 2:12 PM Riana Ruiz Performance Deficits Activities of daily living (ADLs);Instrumental activities of daily living (IADLs);Leisure;Habits;R outines;Roles;Physical 05/25/2025 2:12 PM Riana Ruiz * C-SSRS (Frequent Screener) Question Answer Date of Assessment Author Is patient awake, alert, and able/willing to answer questions appropriately? Yes 05/31/2025 8:00 AM Sharri Ramos RN 1. Wish to be (Past 1 Month) No 025 8:00 AM Sharri Ramos RN 2. Non-Specific Active Suici josh Thoughts (Past 1 Month) No 05/31/2025 8:00 AM Magdalena Ramos RN 6. Suicidal Behavior (Lifetime) No 8:00 AM Sharri Ramos RN * Discharge Planning Continued Question Answer Date of Assessment Author Transportation Home at Discharge Family/Friend will Provide 05/25/2025 11:22 AM Betzaida Vivar * [facility] 6-Clicks Mobility Assessment Question Answer Date of Assessment Author Difficulty patient has turni ng over in bed (including adjusting bedclothes, sheets, and blankets)? 4 05/31/2025 2:08 PM EST Cecelia Borrego Difficulty patient has sitti ng down on and standing up from a chair with arms (wheelchair, bedside commode, etc.)? 4 05/31/2025 2:08 PM EST Mariluz Borrego Difficulty patient has movin g from lying on back to sitting on the side of the bed? 4 05/31/2025 2:08 PM EST Mariluz Borrego How much help does the patie nt need moving to and from a bed to a chair (including a wheelchair)? 4 05/31/2025 2:08 PM EST Mariluz Borrego How much help does the patie nt need to walk in hospital room? 4 05/31/2025 2:08 PM EST Cecelia Borrego How much help does the patie nt need climbing 3-5 steps with a railing? 3 05/31/2025 2:08 PM EST Co annmarieMariluz [facility] 6-Clicks Mobility Asse ssment Total 23 05/31/2025 2:08 PM EST Mariluz Borrego documented as of this encounter Mental Status * Time Calculation Question Answer Entry Date Author Start Time 13831 05/31/2025 2:08 PM EST Adonay eton Mariluz Stop Time 70763 05/31/2025 2:08 PM EST Adonay eton Mariluz Time Calculation (min) 46 05/31/2025 2:08 PM EST Mariluz Borrego * OT Therapeutic Procedures Time Entry Question Answer Entry Date Author Self Care/Home Management (A DLs) Time Entry 26 05/28/2025 3:27 PM EST Riana Almaraz * HEENT Question Answer Entry Date Author JEFFRY (PARVEEN) X 05/31/2025 8:00 AM EST Sharri Smith RN R Eye Sclera yellow 05/31/2025 8:00 AM EST Sharri Vázquez RN L Eye Sclera yellow 05/31/2025 8:00 AM EST Sharri Vázquez RN Head and Face Tenderness 05/31/2025 4:00 AM EST Jarvis Callaway RN * Presentation Question Answer Entry Date Author Lines and Tubes Intravenous access 05/31/2025 2: 08 PM EST Mariluz Borrego Pre-Session Comments Pt in bathroom at beginning of session; pt up ad michelle 05/31/2025 2:08 PM EST Mariluz Borrego Post-Session Comments All needs met, RN in room 05/31/2025 2:08 PM EST Mariluz Borrego * BMI (Calculated) Answer Entry Date Author 35.3 05/31/2025 12:04 PM EST Ernie Curran * Percent Excess Weight Loss Answer Entry Date Author 0 05/30/2025 3:00 PM EST Jazmín Hwang RD * Total Weight Change Percent Answer Entry Date Author 222105/31/2025 12:04 PM EST Ernie Curran * Weight Change Since Preop Answer Entry Date Author 93.15 05/31/2025 12:04 PM Ernie Cooper * Initial Excess Weight Answer Entry Date Author -54.47 05/30/2025 3:00 PM EST Jazmín Hwang, RD * IBW in lbs (Bariatric) Answer Entry Date Author 120.08 05/30/2025 3:00 PM EST Jazmín Hwang, RD * Weight Change Since Last Visit Answer Entry Date Author 0.45 05/31/2025 12:04 PM EST Ernie Curran * IBW in kg (Bariatric) Answer Entry Date Author 54.47 05/30/2025 3:00 PM EST Jazmín Hwang, RD * Percent of IBW Answer Entry Date Author 6,004.02 05/30/2025 3:00 PM EST Jazmín Hwang, RD * EBW (kg) Answer Entry Date Author 3,268.85 05/30/2025 3:00 PM EST Jazmín Hwang, RD * EBW (lbs) Answer Entry Date Author 3,262.89 05/30/2025 3:00 PM EST Jazmín Hwang, RD * Patient Profile Question Answer Entry Date Author Referral From Nurse 05/27/2025 5:37 PM Neftaly Mae Pastoral Care Provided For Patient 05/27/2025 5:37 PM EST Neftaly Vyas Consult Reasons Emotional support;Spiritual support 05/27/2025 5:37 PM EST Neftaly Vyas * Activity Management Answer Entry Date Author up in chair 05/31/2025 1:18 PM Marielena Ramos RN * Progress Answer Entry Date Author improving 05/31/2025 1:18 PM Marielena Ramos RN * Hepatic Encephalopathy Management Answer Entry Date Author airway protection maintained 05/30/2025 11:11 AM EST Oly Mendiola RN * Lung Protection Measures Answer Entry Date Author fluid excess minimized 05/31/2025 2:47 AM EST Jarvis Gutierrez RN * Stabilization Measures Answer Entry Date Author legs elevated 05/31/2025 1:18 PM EST Marielena River RN * Nutrition Support Management Answer Entry Date Author weight trending reviewed 05/31/2025 2:47 AM EST Jarvis Ibrahim RN * Infection Management Answer Entry Date Author aseptic technique maintained 05/31/2025 2:47 AM Jarvis Bishop RN * Supportive Measures Answer Entry Date Author active listening utilized 05/31/2025 1:18 PM Sharri Ramos RN * Oral Nutrition Promotion Answer Entry Date Author rest periods promoted 05/31/2025 2:47 AM Jarvis Ortiz RN * Pressure Reduction Techniques Answer Entry Date Author heels elevated off bed 05/31/2025 1:18 PM Sharri Albert RN * Perineal Care Answer Entry Date Author education provided 05/30/2025 2:33 AM Carlos Enrique Franco RN * Pain Management Interventions Answer Entry Date Author declines 05/31/2025 1:18 PM Marielena Ramos RN * Fluid/Electrolyte Management Answer Entry Date Author fluids restricted 05/31/2025 1:18 PM Sharri Ramos RN * Fever Reduction/Comfort Measures Answer Entry Date Author lightweight bedding;lightweight clothing 025 2:47 AM Jarvis Bishop RN * Sensory Stimulation Regulation Answer Entry Date Author quiet environment promoted 05/31/2025 1:18 PM Sharri Henderson RN * Body Position Answer Entry Date Author education provided 05/31/2025 1:18 PM Sharri Ramos RN * Complementary Therapy Answer Entry Date Author music therapy provided 05/30/2025 2:33 AM Carlos Enrique Aguilera RN * Airway/Ventilation Management Answer Entry Date Author position adjusted 05/31/2025 1:18 PM Sharri Ramos RN * Trust Relationship/Rapport Answer Entry Date Author care explained;choices provi ded;empathic listening provided;emotional support provided 05/31/2025 1:18 PM Sharri Ramos RN * Pressure Reduction Devices Answer Entry Date Author positioning supports utilized 05/31/2025 2:47 AM Jarvis Bishop RN * Diversional Activities Answer Entry Date Author smartphone 05/31/2025 1:18 PM Marielena Ramos RN * Nausea/Vomiting Interventions Answer Entry Date Author nausea triggers minimized;si ps of clear liquids given 05/31/2025 2:47 AM Jarvis Bishop RN * Nutrition Interventions Answer Entry Date Author frequent small meals provided 05/31/2025 1:18 PM Sharri Ramos RN * Bleeding Precautions Answer Entry Date Author monitored for signs of bleeding 05/31/2025 1:18 PM Sharri Ramos RN * Infection Prevention Answer Entry Date Author hand hygiene promoted 05/31/2025 1:18 PM Sharri Baker RN * Outcome Evaluation Answer Entry Date Author patient understood the plan of care for the shift 05/30/2025 11:05 AM Oly Mercedes RN * Spiritual Activities Assistance Answer Entry Date Author hope instilled 05/31/2025 2:47 AM Jarvis Bishop RN * Family/Support System Care Answer Entry Date Author support provided 05/31/2025 1:18 PM Sharri Ramos RN * Sleep/Rest Enhancement Answer Entry Date Author awakenings minimized;relaxat ion techniques promoted 05/31/2025 1:18 PM Sharri Ramos RN * Medication Review/Management Answer Entry Date Author medications reviewed 05/31/2025 1:18 PM Sharri Pastor RN * Seizure Precautions Answer Entry Date Author clutter-free environment maintained 05/31/2025 2 :47 AM Jarvis Bishop RN * Skin Protection Answer Entry Date Author transparent dressing maintained 05/31/2025 2:47 AM Jarvis Bishop RN * Self-Care Promotion Answer Entry Date Author independence encouraged;BADL personal objects within reach 05/31/2025 2:47 AM Jarvis Bishop RN * Isolation Precautions Answer Entry Date Author protective 05/31/2025 1:18 PM Marielena Ramos RN * Bleeding Management Answer Entry Date Author affected area elevated 05/30/2025 2:33 AM Carlos Enrique Aguilera RN * Safety Interventions Question Answer Entry Date Author Safety Precautions/Falls Reduction assistive device/personal items within reach 05/24/2025 4:40 AM Sanjuana Iraheta RN All Alarms alarm(s) activated a nd audible 05/24/2025 4:40 AM Sanjuana Iraheta RN * General Emergency Care CPG Interventions Question Answer Entry Date Author General (Individualize) generalized abdo marc pain 05/24/2025 4:40 AM Sanjuana Iraheta RN Coping Interventions anticipatory guidan ce provided;care explained to patient/family prior to performing;cultural beliefs/values incorporated;emotional support provided;safe, supportive environment facilitated;education/inf ormation provided;reassurance provided;diversional activities provided;questions answered 05/24/2025 4:40 AM Sanjuana Iraheta RN General Care Management calm environment promoted;medication response monitored;monitored for physiologic status changes;pain relief monitored;positioned for comfort;respiratory status monitored 05/24/2025 4:40 AM Sanjuana Iraheta RN * Discharge Needs Assessment Question Answer Entry Date Author Discharge Facility/Level of Care Needs 1-Home or Self Care 05/31/2025 1:38 PM Betzaida Vivar Equipment Needed After Discharge Cpap 05/25/2025 11:22 AM Betzaida Vivar Equipment Currently Used at Home Cpap 05/25/2025 11:22 AM Betzaida Vivar Current Outpatient/Agency/Support Group clinic(s);DME 05/25/2025 11:22 AM Betzaida Vivar Anticipated Changes Related to Illness none 05/25/2025 11:22 AM Betzaida Vivar Transportation Anticipated family or fri end will provide 05/25/2025 11:22 AM Betzaida Vivar Outpatient/Agency/Support Group Needs clinic(s);DME 05/25/2025 11:22 AM Betzaida Vivar Transportation Concerns none 05/25/20 11:22 AM Betzaida Vivar Concerns to be Addressed discharge planning 05/12 11:22 AM Betzaida Vivar Readmission Within the Last 30 Days unable to assess 05/25/2025 11:22 AM Betzaida Vivar Patient/Family Anticipated Services at Transition durable medical equipment 05/25/2025 11:22 AM Betzaida Vivar Patient/Family Anticipates Transition to home with family;home 05/25/2025 11:22 AM Betzaida Vivar Who is requesting discharge planning? Provider 05/25/2025 11:22 AM Betzaida Vivar * Acuity/Destination Question Answer Entry Date Author Patient Acuity 3 05/24/2025 3:21 AM EST Sanjuana Bueno RN Triage Complete Triage complete 05/24/2025 3:21 AM EST Sanjuana Schumacher, [employer] Destination Main 05/24/2025 3:21 AM EST Sanjuana Bueno, [place] * Weight Change 24 hrs Answer Entry Date Author .454 05/31/2025 12:04 PM EST Ernie Curran * Facility NPI Question Answer Entry Date Author NPI Medical 05/25/2025 12:50 P M EST Linda Jauregui RN * Precautions Question Answer Entry Date Author Medical Precautions Fall precautions 05/28/2025 3:27 P M Riana Ruiz * Oxygen Therapy Question Answer Entry Date Author Oxygen Therapy None 05/31/2025 2:08 PM EST Mariluz Guerrero * Delirium Assessment Question Answer Entry Date Author CAM-ICU/PCAM-ICU No 05/28/2025 3:27 PM EST Riana Clemens RASS 0 05/31/2025 2:08 PM EST Mariluz Michelle * HLM Question Answer Entry Date Author [facility] Daily Mobility Score 8 05/31/2025 2: 08 PM EST Mariluz Borrego * Cognition Question Answer Entry Date Author Mood/Behavior Alert 05/28/2025 3:27 PM Riana Ruiz Overall Cognitive Status WFL 025 3:27 PM Riana Ruiz Arousal/Alertness Appropriate response s to stimuli 05/28/2025 3:27 PM Riana Ruiz Attention Span Appears intact 05/28/2025 3:27 PM Riana Ruiz Safety Judgment Good awareness of sa fety precautions 05/28/2025 3:27 PM Riana Ruiz Awareness of Errors Good awareness of er rors made 05/28/2025 3:27 PM Riana Ruiz Method of Communication Verbal 05/28/20 25 3:27 PM Riana Ruiz Single Step Commands Consistently 05/28/2025 3:27 PM Riana Ruiz Multi-Step Commands Consistently 05/28/2025 3 :27 PM Riana Ruiz * General Question Answer Entry Date Author Next PT Re-Assessment Date 63[address] 05/25/2025 2:1 8 PM Alexsander Cosby * PT Assessment Question Answer Entry Date Author History Profile 1 - 2 personal facto rs and/or comorbidities 05/25/2025 2:24 PM Alexsander Cosby Evaluation/Treatment Tolerance Patient limited by fatigue 05/25/2025 2:24 PM Alexsander Cosby Diagnosis Impaired functional mobility 05/25/2025 2:24 PM Alexsander Cosby Clinical Presentation Stable and/or unco mplicated characteristics 05/25/2025 2:24 PM Alexsander Cosby Clinical Decision Making Low complexity 025 2:24 PM Alexsander Cosby Rehab Potential Good, to achieve sta katie therapy goals 05/25/2025 2:24 PM Alexsander Cosby Activity Tolerance Standing;Walking;Juliana erates 30 min activity with multiple rests 05/25/2025 2:24 PM Alexsander Cosby * Plan of Care Reviewed With Answer Entry Date Author patient 05/31/2025 1:18 PM Marielena Ramos RN * Pressure Injury Prevention (PIP) Interventions Question Answer Entry Date Author Pressure Reducing Devices Pillow 05/31/2025 8:00 AM Sharri Ramos RN Mattress Acute care mattress 05/25/2025 7 :45 PM Malia Wynne LPN Bed Type Acute Care Bed 05/31/2025 8:00 AM Sharri Ramos RN * Vital Signs Question Answer Entry Date Author BP 117/72 05/31/2025 11:36 AM Shon Aaron Flowsheet In Temp 98.1 05/31/2025 11:36 AM Shon Aaron Flowsheet In Pulse 84 05/31/2025 11:36 AM Shon Aaron Flowsheet In Heart Rate Source Monitor 05/31/2025 7:45 AM Sharri Ramos RN MAP (mmHg) 87 05/31/2025 11:36 AM Shon Aaron Flowsheet In * Oxygen Therapy Question Answer Entry Date Author SpO2 97 05/31/2025 11:36 AM Shon Rose Flowsheet In Oximetry Probe Site Location Left Digit 05/24/2025 3:16 AM Tristan Martin * Height and Weight Question Answer Entry Date Author Weight Method Standing scale 05/28/2025 6:00 AM EST Carlos Enrique Granados RN * Neurological Question Answer Entry Date Author Neuro (WDL) WDL 05/24/2025 12:00 PM EST Tracy Schroeder RN * Gastrointestinal Question Answer Entry Date Author Most Recent BM Date [address] 05/31/2025 8 :00 AM EST Sharri River RN Passing Flatus No 05/30/2025 4:00 PM EST Oly Mendiola RN Abdominal Tenderness Nontender 05/31/2025 4:00 AM EST Jarvis Ibrahim RN Bowel Sounds (All Quadrants) Present 4:00 AM EST Jarvis Ibrahim RN Gastrointestinal (WDL) X 8:00 AM EST Sharri River RN Abdomen Inspection Rounded 05/31/2025 8: 00 AM Sharri Ramos RN GI Symptoms Distention 05/31/2025 4:00 AM EST Jarvis Ibrahim RN Gastrointestinal Additional Assessments No 05/26/2025 4:00 AM EST Malia Medina LPN * Peripheral Vascular Question Answer Entry Date Author Peripheral Vascular (WDL) X 05/31/2025 8:00 AM EST Sharri River RN RLE Edema +2 05/31/2025 8:00 AM Sharri Ramos RN LLE Edema +2 05/31/2025 8:00 AM Sharri Ramos RN Capillary Refill Less than/equal to 2 seconds (All extremities) 05/31/2025 4:00 AM Jarvis Bishop RN Pulses L radial;R radial 05/31/2025 4:0 0 AM Jarvis Bishop RN Cyanosis None 05/31/2025 4:00 AM Jarvis Bishop RN Edema Right lower extremity;Left lower extremity 05/31/2025 4:00 AM Jarvis Bishop RN * RUE Neurovascular Assessment Question Answer Entry Date Author R Radial Pulse +2 05/31/2025 4:00 AM EST Jarvis Waite RN * LUE Neurovascular Assessment Question Answer Entry Date Author L Radial Pulse +2 05/31/2025 4:00 AM EST Jarvis Waite RN * RLE Neurovascular Assessment Question Answer Entry Date Author R Pedal Pulse +1 05/31/2025 4:00 AM EST Jarvis Callaway RN * LLE Neurovascular Assessment Question Answer Entry Date Author L Pedal Pulse +1 05/31/2025 4:00 AM EST Jarvis Callaway RN * Musculoskeletal Question Answer Entry Date Author RUE Full movement 05/27/2025 4:00 PM Nabeel Ascencio RN RLE Weakness 05/31/2025 8:00 AM EST Sharri River RN LUE Full movement 05/27/2025 4:00 PM Nabeel Ascencio RN LLE Weakness 05/31/2025 8:00 AM Sharri Ramos RN Musculoskeletal (WDL) X 05/31/2025 8:00 AM Sharri Ramos RN Musculoskeletal Additional Assessments No 05/26/2025 4:00 AM EST Malia Medina LPN * Urine Assessment Question Answer Entry Date Author Urinary Incontinence No 05/31/2025 4:00 AM E Jarvis Marks RN * Psychosocial Question Answer Entry Date Author Psychological state Calm;Cooperative 05/31/2025 8:00 A M Sharri Ramos RN Needs Expressed Physical 05/31/2025 4:00 AM EST Jarvis Gutierrez RN Psychosocial (WDL) WDL 05/31/2025 8:00 AM Sharri Ramos RN * Intake Question Answer Entry Date Author [address] 05/30/2025 5:09 PM EST Oly Mendiola RN * Output (mL) Question Answer Entry Date Author Urine 600 05/31/2025 12:04 PM EST Fernando Pickard * Trinidad Fall Risk Question Answer Entry Date Author History of Falling, Immediat e or Within 3 Months 0 05/31/2025 8:00 AM Sharri Ramos RN Secondary Diagnosis 15 05/31/2025 8:00 AM Sharri Henderson RN Ambulatory Aid 0 05/31/2025 8:00 AM Sharri Baker RN Intravenous Therapy/Heparin Lock 20 05/31/20 25 8:00 AM Sharri Ramos RN Gait/Transferring 10 05/31/2025 8:00 AM Sharri Ramos RN Mental Status 0 05/31/2025 8:00 AM Sharri Pastor RN Trinidad Fall Risk Score 45 05/31/2025 8:00 AM Sharri Ramos RN * Mando Scale Question Answer Entry Date Author Sensory Perceptions 3 05/31/2025 8:00 AM Sharri Henderson RN Moisture 4 05/31/2025 8:00 AM Sharri Akhtar RN Activity 3 05/31/2025 8:00 AM Sharri Akhtar RN Mobility 3 05/31/2025 8:00 AM Sharri Akhtar RN Nutrition 3 05/31/2025 8:00 AM Sharri Akhtar RN Friction and Shear 3 05/31/2025 8:00 AM Sharri Ramos RN Mando Scale Score 19 05/31/2025 8:00 AM Sharri Ramos RN * BSA (Calculated - sq m) Answer Entry Date Author 2.05 05/31/2025 12:04 PM Ernie Cooper * BMI (Calculated) Answer Entry Date Author 35.24 05/31/2025 12:04 PM Ernie Cooper * Cardiac Question Answer Entry Date Author Tick Sewer On No 05/30/2025 4:00 PM Oly Norton RN Cardiac (WDL) WDL 05/31/2025 8:00 AM Sharri Pastor RN Heart Sounds S1, S2 05/31/2025 4:00 AM Jarvis Tirado RN Telemetry/Restaurant And Bar Manager No 05/31/2025 4:00 AM Jarvis Bishop RN Jugular Venous Distention (JVD) No 4:00 AM Jarvis Bishop RN * Respiratory Question Answer Entry Date Author Bilateral Breath Sounds Diminished 05/31/2025 8:00 A M Sharri Ramos RN Respiratory Pattern Regular 05/31/2025 4:00 AM ES T Labianca, Jarvis, RN Chest Assessment Symmetrical 05/31/2025 4:00 AM Jarvis Sanchez RN Respiratory (WDL) X 05/31/2025 8:00 AM Sharri Ramos RN Respiratory Effort Unlabored 05/31/2025 4:00 AM Jarvis Bishop RN Respiratory Depth/Rhythm Regular 05/31/2025 4:00 AM Jarvis Bishop RN * Vitals Question Answer Entry Date Author Rjai src Oral 05/31/2025 11:36 AM Fernando Cooper Resp 16 05/31/2025 11:36 AM Fernando Cooper Weight 3286.4 05/31/2025 12:04 PM Fernando Cooper BP Location Right arm 05/31/2025 11:36 AM Fernando Cooper BP Method Automatic 05/31/2025 11:36 AM Fernando Cooper Pulse Oximetry Type Intermittent 05/27/2025 3 :21 PM Lien Mojica Patient Activity During SpO2 Measurement At rest 05/27/2025 3:21 PM Lien Mojica Patient Position Sitting 05/31/2025 11:3 6 AM Fernando Cooper * Point of Care Tests Question Answer Entry Date Author Provider Role Resident 05/27/2025 8:35 AM Nabeel Ascencio RN Blood Glucose Meter 118 05/31/2025 1 1:36 AM Fernando Cooper Provider Name Alison Burns 05/27/2025 8:35 AM Nabeel Ascencio RN Method of Communication Secure message 05/27/20 25 8:35 AM Nabeel Ascencio RN Reason for Communication Evaluate 025 8:35 AM Nabeel Ascencio RN Response Other (Comment) 05/27/2025 8:35 AM Nabeel Ascencio RN Name of Nurse Notified of Blood Glucose Results (First and Last) Herbie River 05/31/2025 11:36 AM Fernando Cooper Glucose Sample Retrieved From Finger stick 11:36 AM Fernando Cooper * Patient Information Question Answer Entry Date Author Primary Caregiver Self 05/25/2025 11:21 AM Betzaida Vivar Support System Immediate family 05/25/2025 11:21 AM Betzaida Wilks * Activities of Daily Living Question Answer Entry Date Author Functional Status Independent 05/25/2025 11:21 AM Betzaida Vivar Living Arrangements Family 05/25/2025 11:21 AM Betzaida Michaud Type of Residence Single Level 05/25/2025 11:21 AM Betzaida Vivar Current DME Provider [employer] 05/25/2025 11:21 AM Betzaida Vivar * Income Information Question Answer Entry Date Author Income Source Government aid 05/25/2025 11:21 AM Betzaida Holcomb * Safety Question Answer Entry Date Author Interventions ID band on;Side rails up x2 05/24/2025 3:47 AM Sanjuana Iraheta RN Is the patient being placed on a hold? No 05/24/2025 3:47 AM Sanjuana Iraheta RN * Advance Directives (For Healthcare) Question Answer Entry Date Author Advance Directive Patient does not hav e advance directive 05/25/2025 11:22 AM Betzaida Vivar Pre-existing DNR/DNI Order No 05/25 11:22 AM Betzaida Vivar Information Provided on Healthcare Directives Yes 05/25/2025 11:22 AM Betzaida Vivar Patient Requests Assistance No 05/25/2025 11:22 AM Betzaida Vivar Have you reviewed your Advance Directive and is it valid for this stay? Not applicable 05/25/2025 11:22 AM Betzaida Vviar * Nutrition Screen Question Answer Entry Date Author Difficulty Chewing or Swallowing No 05/24/2025 9:00 PM Betzaida Johnson LPN Burn, Pressure Injury, or Non-Healing Wound No 05/24/2025 9:00 PM Betzaida Johnson LPN Home Tube Feeding or Total Parenteral Nutrition (TPN) No 05/24/2025 9:00 PM Betzaida Johnson LPN Food allergy, Druze, or Cultural nutrition needs No 05/24/2025 9:00 PM Garrett Johnson LPN * Pain Descriptors Answer Entry Date Author Memo 05/30/2025 5:23 PM Xochitl Mercedes RN * Pain Onset Answer Entry Date Author Ongoing 05/30/2025 5:23 PM Xochitl Mercedes RN * Pain Frequency Answer Entry Date Author Constant/continuous 05/30/2025 5:23 PM Oly Mercedes RN * Trauma/Abuse Assessment Question Answer Entry Date Author Physical Abuse Denies 05/24/2025 9:00 PM EST Betzaida Rivera, [employer] Verbal Abuse Denies 05/24/2025 9:00 PM EST Betzaida Unger LPN * Values/Beliefs Question Answer Entry Date Author Cultural Requests During Hospitalization none 05/24/2025 9:00 PM EST Betzaida Fulton LPN Spiritual Requests During Hospitalization none 05/24/2025 9:00 PM EST Betzaida Fulton LPN Unable to assess No 05/24/2025 9:00 PM EST Betzaida Conn [employer] * Genitourinary Question Answer Entry Date Author Genitourinary (WD) WDL 05/31/2025 8:00 AM Sharri Henderson RN * Neurological Question Answer Entry Date Author Level of Consciousness Alert 05/31/2025 4:00 AM Jarvis Bishop RN Orientation Level Oriented X4 05/31/2025 4:00 AM Jarvis Bishop RN Cognition Follows commands 05/31/2025 4:00 AM Jarvis Sanchez RN Speech Clear 05/31/2025 4:00 AM Jarvis Tirado RN Neuro ([facility]) WDL 05/31/2025 8:00 AM Sharri Akhtar RN * Current Blood Glucose Answer Entry Date Author 118 05/31/2025 11:52 AM Sharri Ramos RN * Insulin Instructions: Answer Entry Date Author No dose needed. 05/31/2025 11:52 AM Sharri Ramos RN * Current Blood Glucose Answer Entry Date Author 107 05/28/2025 9:31 PM Carlos Enrique Zavala RN * Insulin Instructions: Answer Entry Date Author No dose needed. 05/28/2025 9:31 PM Carlos Enrique Zavala RN * Safe Environment Question Answer Entry Date Author 37-Pin Connection [Bed and Wall] Yes 05/30/2025 8:00 AM Oly Mercedes RN Arm Bands On ID 05/31/2025 8:00 AM Sharri Ramos RN Side Rails/Bed Safety 2/4 05/31/2025 8:00 AM Sharri Ramos RN NonSkid Footwear On;Patient in bed 05/30/2025 4: 00 PM Oly Mercedes RN The Patient's Environment is Safe Yes 05/31/2025 8:00 AM Sharri Ramos RN Head of Bed Angle 30 05/27/2025 4:0 0 PM Nabeel Ascencio RN Bed Foot Left Rail Up State No 05/28/2025 8:00 PM Carlos Enrique Zavala RN Bed Head Right Rail Up State Yes 05/28/2025 8:00 PM Carlos Enrique Zavala RN Bed Head Left Rail Up State Yes 05/28/2025 8:00 PM Carlos Enrique Zavala RN Bed Foot Right Rail Up State No 05/28/2025 8:00 PM Carlos Enrique Zavala RN Bed Exit System Activate Status No 05/28/2025 8:00 PM Carlos Enrique Zavala RN Bed Brake State Yes 05/28/2025 8:00 PM Carlos Enrique Zavala RN Bed Low Height State No 05/28/2025 8:00 PM Carlos Enrique Zavala RN Chair Exit System Activate Status No 05/30/2025 8:00 AM Oly Mercedes RN * Fall Risk Interventions Question Answer Entry Date Author Safety Promotion/Fall Prevention activity supervised;assistive device/personal items within reach;clutter-free environment maintained;fall prevention program maintained;nonskid shoes/slippers when out of bed;room organization consistent;safety round/check completed 05/31/2025 8:00 AM Sharri Ramos RN Enhanced Safety Measures education provided 05/31/2025 8:00 AM Sharri Ramos RN Toilet Every 2 Hours-In Advance of Need Yes 05/30/2025 8:00 AM Oyl Mercedes RN Hourly Visual Checks Awake 05/31/2025 8:00 AM Sharri Ramos RN Room Door Open Deferred to decrease stimulation;Deferred to promote rest 05/30/2025 8:30 PM Jarvis Bishop RN Gait Belt Used For Transfers Not applicable 05/30/2025 8:30 PM Jarvis Bishop RN Fall Bundle Components Call light within reach;Personal belongings within reach;Overbed table within reach;Bed in lowest position;Bed wheels locked;Non-skid footwear on if up in chair or ambulating;Staff to remain with patient during toileting;Fall risk sign on door;Bed alarm on in zone 2 with proper weight settings;Staff to remain with patient during ambulation and tranfers 05/31/2025 8:00 AM Sharri Ramos RN * Mobility Question Answer Entry Date Author Range of Motion active ROM (range of motion) encouraged 05/30/2025 8:00 AM Oly Mercedes RN Activity Assistance Provided assistance, stand-by 05/31/2025 8:00 AM Sharri Ramos RN Assistive Device Utilized front wheel walker 8:00 AM Oly Mercedes RN VTE Prevention/Management medication;edu cation provided 05/31/2025 8:00 AM Sharri Ramos RN Head of Bed (HOB) Positioning HOB elevated 05/30/2025 8:30 PM Jarvis Bishop RN Repositioned Turns self 05/31/2025 8:00 AM Sharri Ramos RN Head of Bed Elevated HOB 30 05/27/2025 4:00 PM Nabeel Ascencio RN Heels/Feet Foot of bed elevated 05/30/2025 8:00 AM Oly Mercedes RN Reason for Removing Anti-Embolism Device Massive edema of extremity 05/30/2025 8:00 AM Oly Mercedes RN Positioning Frequency Able to turn self 05/31/20 8:00 AM Sharri Ramos RN * Hygiene Question Answer Entry Date Author Bathing/Skin Care linen changed 05/29/2025 8:4 7 PM Jeniffer Reyes Oral Care oral rinse provided 05/30/2025 8 :30 PM Jarvis Bishop RN Oral Care (Yes/No) Yes 05/30/2025 8: 30 PM Jarvis Bishop RN CHG (Chlorhexidine Gluconate) Hygiene Wipes 05/25/2025 7:45 PM Malia Wynne LPN * Precautions Question Answer Entry Date Author Precautions Environmental surveillance 05/31/2025 8:0 0 AM Sharri Ramos RN * Comfort and Environment Interventions Question Answer Entry Date Author Warm [place] Applied 05/25/2025 7:45 PM Malia Wynne LPN Patient Preferences none stated 05/25/2025 4 :00 AM Betzaida Johnson LPN Comfort Repositioned 05/30/2025 8:30 PM Jarvis Bishop RN Additional Comfort/Environmental Interventions Warm blanket 05/26/2025 4:00 AM Malia Wynne LPN * Safety Equipment at Bedside Question Answer Entry Date Author Standard Bedside Safety Ambu bags in hallway 8:00 AM Sharri Ramos RN Additional Bedside Safety Bed in locked and low position;Clutter free environment 05/31/2025 8:00 AM Sharri Ramos RN * IBW/kg (Calculated) Male Answer Entry Date Author 59.24 05/30/2025 3:[address] * IBW/kg (Calculated) Female Answer Entry Date Author 54.74 05/30/2025 3:[address] * Consults Question Answer Entry Date Author Integrative Medicine Consult Needed No 05/24/2025 9:00 PM Betzaida Johnson LPN Pastoral Care Consult Needed No 05/24/2025 9 :00 PM Betzaida Johnson LPN Tractor Trailer Technician Consult Needed No 05/24/2025 9:00 PM Betzaida Johnson LPN * Therapy Consults Question Answer Entry Date Author PT Evaluation Needed 2 05/24/2025 9:00 PM E Betzaida Nix LPN OT Evaluation Needed 2 05/24/2025 9:00 PM E Betzaida Nix LPN BOAT CARPENTER MECHANIC Evaluation Needed 2 05/24/2025 9:00 PM Betzaida Johnson LPN * Assistive Devices Question Answer Entry Date Author Assistive Devices CPAP 05/24/2025 9:00 PM Betzaida Johnson LPN * Provider Notification Question Answer Entry Date Author Notification Time [id number] 05/27/2025 8:35 AM Nabeel Ascencio RN * End of Shift Review Question Answer Entry Date Author Shift Review Complete Yes 05/30/2025 8:00 AM Oly Mercedes RN Shift Report Received From Carlos Enrique OLIVIA 05/30/2025 8:0 0 AM Oly Mercedes RN Shift Report Given To Maury OLIVIA 05/30/2025 8:00 AM Oly Mercedes RN * Hourly Rounding Question Answer Entry Date Author Hourly Rounding Complete Per Guideline Yes 05/31/2025 10:00 AM Sharri Ramos RN * Patient Violence Risk Assessment Question Answer Entry Date Author History of Violence: In the past 12 hours has the PATIENT exhibited any of the following? None 05/31/2025 8:00 AM Sharri Ramos RN Potential for Violence: In the past 12 hours has the PATIENT exhibited any of the following? None 05/31/2025 8:00 AM Sharri Ramos RN Risk No identified risk 05/31/2025 8: 00 AM Sharri Ramos RN History of Violence: In the past 12 hours has a PARTNER IN CARE of the patient exhibited any of the following? None 05/31/2025 8:00 AM Sharri Ramos RN * Cosign for TURKEY PICKER Question Answer Entry Date Author Cosign for TURKEY PICKER Raman Almonte RN 05/24/2025 9:00 PM Raman Wick RN * Spiritual Assessment Question Answer Entry Date Author Support Systems/ Spiritual Resources [place];Family 05/27/2025 5:37 PM Neftaly Mae * Interventions Question Answer Entry Date Author Interventions Provided Consulted with ca re team;Life review;Spiritual support;Supportive Listening;Emotional support 05/27/2025 5:37 PM EST Neftaly Vyas * Outcomes Question Answer Entry Date Author Patient Outcomes Appreciation 05/27/2025 5:37 PM EST Neftaly Hargrove * Fluid / Beverage Intake Question Answer Entry Date Author Diet Supplements Boost Glucose Control 05/30/2025 3:00 PM EST Jazmín Hwang RD * Follow-Up Question Answer Entry Date Author Duration 21-30 minutes 05/27/2025 5:37 PM EST Neftaly Vyas Pastoral Care Comment Studio Hand met with patient for intial visit. Patient gave a life review of fallon and family. Patient taked about her medical concerns. 05/27/2025 5:37 PM Neftaly Mae Last Date of Pastoral Care Contact [id number] 05/27/2025 5:37 PM Neftaly Mae * Mobility Question Answer Entry Date Author Ambulation Stand by 05/30/2025 8:00 AM EST Oly Mendiola RN * Airway Question Answer Entry Date Author Airway Patency Patent 05/24/2025 7:57 PM Jessica Almaraz RN Airway (WD) WDL 05/24/2025 7:57 PM EST Jessica Avelar, RN * Breathing Question Answer Entry Date Author Breathing (WDL) WDL 05/24/2025 7:57 PM EST Jessica Prado, CORWIN * Circulation Question Answer Entry Date Author Cardiac Rhythm ST 05/24/2025 7:57 PM Jessica Almaraz RN Circulation (WDL) X 05/24/2025 7:57 PM EST Jessica Mendoza RN * Disability Question Answer Entry Date Author L Pupil Size (mm) 3 05/24/2025 7:57 PM Jessica Hines RN R Pupil Size (mm) 3 05/24/2025 7:57 PM Jessica Hines RN Disability (WDL) WDL 05/24/2025 7:57 PM EST Jessica Man RN R Pupil Shape Round 05/24/2025 7:57 PM EST Jessica Aburto RN L Pupil Shape Round 05/24/2025 7:57 PM EST Jessica Aburto, RN * Restart Vitals Timer Answer Entry Date Author Yes 05/31/2025 11:36 AM EST Ernie Curran * IBW/kg (Calculated) Answer Entry Date Author 54.74 05/30/2025 3:00 PM EST Jazmín Hwang RD * STOP-Bang Questionnaire Question Answer Entry Date Author Do you snore loudly? 1 05/24/2025 9:[address] Kirstin Betzaida R, TURKEY PICKER Do you often feel tired or fatigued after your sleep? 1 05/24/2025 9:00 PM EST Kirstin Betzaida R, TURKEY PICKER Has anyone ever observed you stop breathing in your sleep? 1 05/24/2025 9:00 PM EST Philippe craig Betzaida R, TURKEY PICKER Do you have or are you being treated for high blood pressure? 1 05/24/2025 9:00 PM EST Kirstin Betzaida R, TURKEY PICKER Is BMI greater than 35 kg/m2? 1=Yes 05/24/2025 9:00 PM EST Mondelfunmi Betzaida R, TURKEY PICKER Age older than 50 years old? 1=Yes 05/24/2025 9 :00 PM EST Kirstin Betzaida R, TURKEY PICKER Is your neck circumference greater than 17 inches (Male) or 16 inches (Female)? 0 05/24/2025 9:00 PM EST Monjos Oliv ia R, TURKEY PICKER Gender - Male 0=No 05/24/2025 9:00 PM EST Maura Birdia R, TURKEY PICKER STOP-Bang Total Score 6 05/24/2025 9:00 PM EST Mondelfunmi Betzaida R, TURKEY PICKER Recent BMI (Calculated) 36.8 05/24/2025 9:00 P M EST Kirstin Betzaida R, TURKEY PICKER * Date of PT Session Question Answer Entry Date Author PT Initials [facility] 05/31/2025 2:08 PM EST Mariluz Michelle Date of PT Session [id number] 05/31/2025 2:08 PM EST Mariluz Borrego * HARK Concern Calculation Answer Entry Date Author 1 05/25/2025 11:23 AM EST Catia, O zack * Food Insecurity Concern Calculation Answer Entry Date Author 2 05/25/2025 11:23 AM EST Catia, O zack * Transportation Needs Concern Calculation Answer Entry Date Author 1 05/25/2025 11:23 AM EST Catia, O zack * Housing Stability Concern Calculation Answer Entry Date Author 3 05/25/2025 11:23 AM EST Catia, O zack * Utilities Concern Calculation Answer Entry Date Author 1 05/25/2025 11:23 AM EST Catia, O zack * Calculated C-SSRS Risk Score (Lifetime/Recent) Answer Entry Date Author No Risk Indicated 05/31/2025 8:00 AM Sharri Ramos RN * Gipsy Coma Scale Question Answer Entry Date Author Best Eye Response Spontaneous 05/31/2025 8:00 AM Sharri Ramos RN Best Verbal Response Oriented 05/31/2025 8:00 AM Sharri Nino RN Best Motor Response Follows commands 05/31/2025 8:00 A M Sharri Ramos RN Gipsy Coma Scale Score 15 05/31/2025 8:00 AM Sharri Ramos RN * Care Handoff Question Answer Entry Date Author Handoff Received From Jessica Jefferson RN 05/24/2025 7:25 PM Jessica Hines RN * Restart Pain Assessment Timer Answer Entry Date Author Yes 05/31/2025 7:45 AM Marielena Ramos RN * Seizure Question Answer Entry Date Author Seizure No 05/24/2025 3:47 AM Sanjuana Barnett RN * Tremors Question Answer Entry Date Author Tremors No 05/24/2025 3:47 AM Sanjuana Barnett RN * KINDER 1 Fall Risk Factor Assessment Question Answer Entry Date Author Presented to ED because of fall 0 05/24/2025 3:23 AM Sanjuana Iraheta RN Age > 70 0 05/24/2025 3:23 AM Sanjuana Iraheta RN Intoxicated with alcohol or substance confusion 0 05/24/2025 3:23 AM Sanjuana Iraheta RN Ambulates or transfers with assistive devices or assist 0 05/24/2025 3:23 AM Sanjuana Iraheta RN Unable to ambulate or transfer 0 05/24/2025 3:23 AM Sanjuana Iraheta RN Nursing judgement 1 05/24/2025 3:2 3 AM Sanjuana Iraheta RN KINDER 1 Fall Risk Score 1 025 3:23 AM Sanjuana Iraheta RN High Fall Risk Interventions for Scores 1 and above Fall risk bundle components in place as defined below;Fall risk sign on door;Alarms set and confirmed;Call light within reach;Side rails raised;Bed in lowest position and locked;Non-skid socks on patient as appropriate;Belongings within reach 05/24/2025 3:23 AM Sanjuana Iraheta RN * Patient Belongings Placed in Locker Question Answer Entry Date Author Belongings placed in Locker None 05/24/2025 3: 24 AM Sanjuana Iraheta RN Belongings at Bedside None 05/24/2025 3:24 AM Sanjuana Iraheta RN * Benson Suicide Severity Rating Scale Question Answer Entry Date Author Is patient awake, alert, and able to answer questions appropriately? Yes 05/24/2025 3:24 AM Sanjuana Iraheta RN * Quick Updates Question Answer Entry Date Author Quick Updates - Free Text Medications have not been verified by pharmacy. Unable to pull. Patient updated. message sent to pharmacy. 05/24/2025 3:08 PM Tracy Araya RN * Weight in (lb) to have BMI = 25 Answer Entry Date Author 145.4 05/30/2025 3:[address] * BMI (Calculated) Answer Entry Date Author 35.3 05/31/2025 12:04 PM Ernie Cooper * Percent Excess Weight Loss Answer Entry Date Author 0 05/30/2025 3:[address] * Weight Change Since Preop Answer Entry Date Author 93.17 05/31/2025 12:04 PM Ernie Cooper * Initial Excess Weight Answer Entry Date Author -54.47 05/30/2025 3:[address] * IBW in kg (Bariatric) Answer Entry Date Author 54.47 05/30/2025 3:00 PM EST Jazmín Hwang, RD * IBW in lb (Bariatric) Answer Entry Date Author 120.08 05/30/2025 3:00 PM EST Jazmín Hwang, RD * Weight Change Since Last Visit Answer Entry Date Author 0.45 05/31/2025 12:04 PM Ernie Cooper * Percent of IBW Answer Entry Date Author 170.22 05/30/2025 3:00 PM EST Jazmín Hwang, RD * EBW (kg) Answer Entry Date Author 38.22 05/30/2025 3:00 PM EST Jazmín Hwang, RD * EBW (lb) Answer Entry Date Author 84.32 05/30/2025 3:00 PM EST Jazmín Hwang, RD * Difference in Weight Since Last Visit Answer Entry Date Author 0.45 05/31/2025 12:04 PM EST Ernie Curran * Housing Circumstances-Z Codes Question Answer Entry Date Author Housing Circumstances (selec t all that apply) Low Income (101-300% Federal Poverty Guidlines) - [id number] 05/25/2025 11:21 AM Betzaida Vivar * Anthropometrics Question Answer Entry Date Author Height 64.016 05/30/2025 3:00 PM EST Jazmín Connor, RD Weight Change 0.49 05/31/2025 12:04 PM EST Fernando Mayes * Temp (in Celsius) for [place] Answer Entry Date Author 36.7 05/31/2025 11:36 AM Ernie Cooper * Pain Assessment Question Answer Entry Date Author Pain Location Head 05/30/2025 6:23 PM Oly Mercedes RN Pain Orientation Bilateral 05/30/2025 6:23 PM Oly Mercedes RN Patient's Stated Pain Goal No pain 05/30/2025 1:04 AM Carlos Enrique Zavala RN Patient is asleep Yes, assume pain is decreased 05/25/2025 4:18 AM Betzaida Johnson LPN Pain Type Acute pain 05/30/2025 6:23 PM Oly Mercedes RN Clinical Progression Gradually improving 025 6:23 PM Oly Mercedes RN Pain Score 0 05/31/2025 7:45 AM Sharri Ramos RN Pain Assessment 0-10 (Adult DVPRS/Pe ds 0-10) 05/31/2025 7:45 AM Sharri Ramos RN * Nutrition Question Answer Entry Date Author Fluid Restrictions 199905/30/2025 8:30 PM EST Jarvis Ibrahim RN Diet Type 2 gram sodium diet 05/31/2025 8:00 AM Sharri Ramos RN Feeding Able to feed self 05/31/2025 8:00 AM Sharri Ramos RN Appetite Fair 05/30/2025 8:30 PM EST Jarvis Bach RN * Alarms Question Answer Entry Date Author High Respiratory Rate 40 05/25/2025 12:15 AM EST Marcia Arroyo Low Respiratory Rate 6 05/25/2025 12:15 AM EST Marcia Arroyo * IBW/kg (Calculated) Answer Entry Date Author 54.74 05/30/2025 3:00 PM EST Jazmín Hwang, RD * Adult Low Range Vt 6mL/kg Answer Entry Date Author 328.44 05/30/2025 3:00 PM EST Jazmín Hwang, RD * Adult Moderate Range Vt 8mL/kg Answer Entry Date Author 437.92 05/30/2025 3:00 PM EST Jazmín Hwang, RD * Adult High Range Vt 10mL/kg Answer Entry Date Author 547.4 05/30/2025 3:00 PM EST Jazmín Hwang, RD * Vent Information Question Answer Entry Date Author Vent ID home 05/30/2025 8:00 AM EST october NIV Status Refused 05/30/2025 9:09 PM EST Cindy May Patient Category Range Adult 05/28/2025 9:55 AM EST Hector Melton Vent Mode CPAP 05/25/2025 12:15 AM EST Marcia Arroyo O2 Delivery Method CPAP/Bi-PAP mask 05/25/2025 1 2:15 AM EST Marcia Arroyo Vent Device Type C1 05/25/2025 12:1 5 AM EST Marcia Arroyo Non-Invasive Ventilator On Yes 05/25 11:40 PM EST Kalie Robledo Non-Invasive Ventilator Off Yes 05/28/2025 9: 55 AM EST Hector Melton $ CPAP Charge Yes 05/25/2025 12:15 AM EST Marcia Arroyo * Respiratory Interventions Question Answer Entry Date Author Respiratory Interventions Cough and deep breathing 05/31/2025 8:00 AM EST Sharri River RN * Cough and Deep Breathe Question Answer Entry Date Author Cough And Deep Breathing done independently per patient 05/31/2025 8:00 AM Sharri Ramos RN * Patient Belongings Sent to Safe/Security Question Answer Entry Date Author Belongings Sent to Safe/Security None 05/24/20 3:24 AM Sanjuana Iraheta RN * Integumentary Question Answer Entry Date Author Skin Color Jaundice 05/31/2025 8:00 AM Sharri Akhtar RN Skin Condition/Temp Warm;Dry 05/31/2025 4:00 AM Jarvis Wilkins RN Skin Integrity Bruising 05/31/2025 8:00 AM Sharri Baker RN Skin Turgor Non-tenting 05/31/2025 4:00 AM Jarvis Tirado RN Bruising Characteristics generalized 05/30/2025 8:00 AM EST Oly Mendiola RN Integumentary (WDL) X 05/31/2025 8:00 AM Sharri Henderson RN * Patient Belongings Sent Home Question Answer Entry Date Author Belongings Sent Home Electronic devices 05/31/2025 1:0 0 PM Sharri Raoms RN Patient Electronics Cell phone 05/31/2025 1:00 PM Sharri Henderson RN * Skin Assessment Question Answer Entry Date Author Scale Used Mando 05/24/2025 9:41 AM EST Tracy Lopez, CORWIN * Score Answer Entry Date Author 23.79 05/31/2025 2:49 PM EST Zeferino Clement * Confusion Assessment Method (CAM) Question Answer Entry Date Author Acute Onset and Fluctuating Course (1A) No 05/31/2025 4:00 AM EST Jarvis Ibrahim R N * Confusion Assessment Method-ICU (CAM-ICU/PCAM-ICU) Question Answer Entry Date Author Feature 3: Altered Level of Consciousness Negative 05/31/2025 2:08 PM EST Mariluz Borrego * Sedation Scales Question Answer Entry Date Author Sedation Scale Used Tang Agitation Sedation Scale 05/31/2025 4:00 AM Jarvis Bishop RN * Urine Output/Assessment Question Answer Entry Date Author Urine Color Yellow/straw 05/30/2025 4:00 PM Oly Mercedes RN Urine Appearance Clear 05/30/2025 4:00 PM Oly Mercedes RN Urine Odor No odor 05/30/2025 4:00 PM Oly Mercedes RN Unmeasured Urine Occurrence 1 05/30/2025 12:57 PM Oly Mercedes RN Urine Amount Unable to assess 05/30/2025 12:5 7 PM Oly Mercedes RN * Stool Output/Assessment Question Answer Entry Date Author Unmeasured Stool Occurrence (hourly total) 1 05/26/2025 8:00 AM Ernie Barrientos RN Stool Amount Unable to assess 05/26/2025 8:00 AM Ernie Powell RN Stool Appearance Loose 05/26/2025 8:00 AM Ernie Powell RN Bowel Incontinence No 05/26/2025 8:00 AM Ernie Barrientos RN * Fall Risk Calculated Score Answer Entry Date Author Trinidad High 05/31/2025 8:00 AM Marielena Ramos RN * Patient Specific Goals Question Answer Entry Date Author Patient/Family-Specific Goals (Include Timeframe) Patient will be free from harm throughout this shift 05/31/2025 8:00 AM Sharri Ramos RN Individualized Care Needs Safety 2024 8:00 AM Sharri Ramos RN Anxieties, Fears or Concerns Going home 05/31/2025 8:00 AM Sharri Ramos RN * Delirium Assessment Question Answer Entry Date Author Delirium Prevention & Management Yes 05/30/2025 4:00 PM Oly Mercedes RN Delirium Prevention & Management: Early Mobility Ambulate to extent of patient's ability;Educate patient and family about the benfits of early mobility in the hospital 05/30/2025 4:00 PM Oly Mercedes RN Delirium Prevention & Management: Cognitive Engagement Delirium prevention education provided to patient and family;Reorienting communication 05/30/2025 4:00 PM Oly Mercedes RN Delirium Prevention & Management: Optimize Sleep/Wake Cycles Natural light during the day;Educate patient and family about optimizing sleep 05/30/2025 4:00 PM Oly Mercedes RN Delirium Scale Used Confusion Assessment Method 05/31/2025 4:00 AM Jarvis Bishop RN * Follow Up Question Answer Entry Date Author [place] [id number] 05/30/2025 4:07 PM EST Jazmín Hwang RD * Deterioration Index Score Question Answer Entry Date Author Deterioration Index Score 18.98 05/31/2025 2:46 PM Dianne Moyer * Unplanned Readmission Scores Question Answer Entry Date Author Unplanned Readmission Score 24.21 05/31/2025 12 :00 PM EST Dianne Stevenson * PRN Medication Given Reason Answer Entry Date Author headaches 05/30/2025 5:23 PM Xochitl Mercedes RN * Discharge Medication Bedside Delivery Question Answer Entry Date Author Meds to Beds Complete? Yes 1:51 PM Yaakov Melendez CPhT Current Status Prescriptions Delive red - M2B Service Complete 05/31/2025 1:51 PM Yaakov Melendez CPhT Is the patient interested in Medication Bedside Delivery at Discharge? Yes, confirmed by pharmacy 05/24/2025 11:26 AM EST Ronald Bravo CPhT * Gipsy Coma Scale Numeric Answer Entry Date Author 15 05/31/2025 8:00 AM EST Marielena River RN * Vent Settings (Invasive or Non Invasive) Question Answer Entry Date Author NIV Interface OTN mask 05/25/2025 12:15 AM EST Marcia Christianson FiO2 (%) 21 05/25/2025 12:15 AM EST Olya li, Amirnaser Resp Rate Observed 16 05/25/2025 12:15 AM Marcia Beach Minute Ventilation Set (L/min) 5 05/25/2025 12:15 AM Marcia Velasquez Vt Spontaneous (mL) 684 05/25/2025 12:15 AM E Marcia Arroyo PEEP/CPAP Set 5 05/25/2025 12:15 AM EST Marcia Christianson Mask Size Small 05/25/2025 12:15 AM Marcia Hammond Trigger Sensitivity Flow (L/min) 5 05/25/20 12:15 AM Marcia Velasquez PEEP/CPAP Measured 5 05/25/2025 12:15 AM Marcia Beach Masked Changed Q4 Yes 05/25/2025 12:15 AM EST Marcia Arroyo Leak (%) 29 05/25/2025 12:15 AM Marcia Hammond * Hyperglycemia Management Answer Entry Date Author blood glucose monitored 05/31/2025 1:18 PM Sharri Benjamin RN * Hypoglycemia Management Answer Entry Date Author blood glucose monitored 05/31/2025 2:47 AM Jarvis Sanchez RN * Neurological Question Answer Entry Date Author Headache No 05/24/2025 3:47 AM Sanjuana Iraheta RN Neuro Pertinent Negatives Alert and oriented x 4;Speech clear 05/24/2025 3:47 AM Sanjuana Iraheta RN Neuro (WDL) WDL 05/24/2025 3:47 AM Sanjuana Iraheta RN * Cardiac Question Answer Entry Date Author Cardiac Regularity Regular 05/24/2025 3:46 AM Sanjuana Iraheta RN Bedside Restaurant And Bar Manager On Yes 05/24/2025 3:4 6 AM Sanjuana Iraheta RN Bedside Cardiac Audible Yes 05/24/2025 3:46 A M Sanjuana Iraheta RN Bedside Cardiac Alarms Set Yes 05/24/2025 3:4 6 AM Sanjunaa Iraheta RN Pacemaker No 05/24/2025 3:46 AM EST Strat ton, Sanjuana, RN * Respiratory Question Answer Entry Date Author Mucous Membranes Intact;Moist 05/24/2025 3:46 AM Sanjuana Mota RN * Musculoskeletal Question Answer Entry Date Author Musculoskeletal Pertinent Negatives Moves all extremities;No injury;No deformity;No swelling 05/24/2025 3:48 AM Sanjuana Iraheta RN Musculoskeletal (WDL) WDL 05/24/2025 3:48 AM Sanjuana Iraheta RN * Cough Question Answer Entry Date Author Cough Present No 05/24/2025 3:46 AM Sanjuana Thomas RN * Vitals Timer Question Answer Entry Date Author Update Vitals Alert Interval 240 05/24/2025 6 :00 PM EST Sloan Washburn Restart Vitals Timer Yes 05/31/2025 11:36 AM EST Fernando Curran Restart Vitals Timer Yes 05/24/2025 6:59 AM Aster North CNA * Hourly Rounding Question Answer Entry Date Author Activity Assistance Patient independent 05/24/20 4:26 AM Sanjuana Iraheta RN Call Light Call light present a nd within reach 05/24/2025 4:40 PM Tracy Araya, CORWIN Rest/ Sleep Appeared asleep 05/24/2025 4:40 PM Tracy Araya, RN Completed Hourly Rounding Yes 05/24/2025 4:40 PM Tracy Araya, CORWIN Plan of Care Reviewed With Patient 05/24/2025 4:26 AM Sanjuana Iraheta RN * Short Physical Performance Battery Question Answer Entry Date Author Short Physical Performance Battery Performed 2024 3:26 PM EST [place] Mariluz Balance Score 4 05/28/2025 3:26 PM EST Brady letMariluz patel Walk Score (4 Meter Walk) 2 05/28/2025 3:26 PM EST StangletonXiomaraMariluz Chair Stand Score 1 05/28/2025 3:26 PM EST [place] Mariluz Total Score 7 05/28/2025 3:26 PM EST Stangl etMariluz patel * Non- Lethal Alarms Question Answer Entry Date Author Non-Lethal/Regular Alarms SpO2 Probe 2024 9:48 AM EST Ivan, Marzena Reason(s) Telemetry is Off Other (Comment) 05/25/2025 5:34 AM Trav Schmidt CNA * Communication Question Answer Entry Date Author Floor Staff Notification Method Secure chat 05/25/2025 5:34 AM Trav Schmidt CNA Monitoring staff Called Floo r Staff Nurse 05/25/2025 5:34 AM Trav Schmidt CNA * Elopement Risk Screen Question Answer Entry Date Author Does the patient exhibit any of the following behaviors? No 05/31/2025 8:00 AM Sharri Ramos RN Does the patient have a cour t ordered legal guardian? No 05/31/2025 8:00 AM Magdalena Ramos RN * Participants in Care Question Answer Entry Date Author Renovation Plant Supervisor N/A 05/31/2025 2:08 PM EST Mariluz Michelle * Cognition Question Answer Entry Date Author Orientation Level Oriented X4 05/25/2025 2:24 PM EST Alexsander Robledo * C-SSRS (Frequent Screener) Question Answer Entry Date Author Is patient awake, alert, and able/willing to answer questions appropriately? Yes 05/31/2025 8:00 AM Sharri Ramos RN 1. Wish to be (Past 1 Month) No 025 8:00 AM Sharri Ramos RN 2. Non-Specific Active Suici josh Thoughts (Past 1 Month) No 05/31/2025 8:00 AM Magdalena Ramos, CORWIN 6. Suicidal Behavior (Lifetime) No 8:00 AM Sharri Ramos RN * Discharge Planning Continued Question Answer Entry Date Author Transportation Home at Discharge Family/Friend will Provide 05/25/2025 11:22 AM EST Betzaida Bardales * [facility] 6-Clicks Mobility Assessment Question Answer Entry Date Author Difficulty patient has turni ng over in bed (including adjusting bedclothes, sheets, and blankets)? 4 05/31/2025 2:08 PM EST Cecelia Borrego Difficulty patient has sitti ng down on and standing up from a chair with arms (wheelchair, bedside commode, etc.)? 4 05/31/2025 2:08 PM EST Mariluz Borrego Difficulty patient has movin g from lying on back to sitting on the side of the bed? 4 05/31/2025 2:08 PM EST Mariluz Borrego How much help does the patie nt need moving to and from a bed to a chair (including a wheelchair)? 4 05/31/2025 2:08 PM EST Mariluz Borrego How much help does the patie nt need to walk in hospital room? 4 05/31/2025 2:08 PM EST Cecelia Borrego How much help does the patie nt need climbing 3-5 steps with a railing? 3 05/31/2025 2:08 PM EST Mariluz Garcia [facility] Mobility Asse ssment Total 23 05/31/2025 2:08 PM EST Mariluz Borrego documented in this encounter Discharge Instructions * Discharge Instructions* Alison Burns MD - 05/31/2025 12:34 PM EST Please increase taking bumex to 2 gm twice daily . If you have rapid wt loss, urinating more, may decrease back to once daily. Please start taking magnesium twice daily. Please continue short acting insulin per sliding scale . Please hold taking insulin lantus unless you have persistently high blood glucose above 200. If high, you may resume 10 units daily. Follow up need -follow up with PCP in 1-2 weeks to check your labs -follow up with GI and transplant clinic -outpatient physical therapy documented in this encounter Medications at Time of Discharge busPIRone (Buspar) 7.5 MG tablet Take 1 tablet by mouth 2 times a day. 09/19/2024 cyclobenzaprine (Flexeril) 10 MG tablet Take 1 tablet by mouth 3 times a day as needed for muscle spasms. 03/27/2025 desvenlafaxine (Pristiq) 50 MG 24 hr tablet Take 1 tablet by mouth daily. Do not crush, chew, or split. diclofenac (Voltaren) 1 % topical gel Place 2 g on the skin 4 times a day as needed (joint pain). 03/24/2022 ergocalciferol (Vitamin D-2) 1.25 MG (59455 UT) capsule Take 1 capsule by mouth 1 time per week. Take on Wednesday04/09/2020 insulin aspart (NovoLOG) 100 UNIT/ML injection vial Inject under the skin 3 (three) times daily with meals per correction scale as follows: blood sugar 150-199 use 1 unit, 200-249 use 2 units, 250-299 use 3 units, 300-349 use 4 units, 350-399 use 5 units, >399 use 6 units and call provider. Max daily dose 50 units. 05/31/2025 insulin glargine (Lantus) 100 UNIT/ML injection vial Inject 10 Units under the skin every morning. If blood sugar is greater than 150 Jardiance 25 MG Take 1 tablet by [...] a day. 240 capsule 2 05/18/2025 6 bumetanide (Bumex) 1 MG tablet Take 2 tablets by mouth 2 times a day. 120 tablet 05/31/2025 5 diphenhydrAMINE (Benadryl) 50 MG tablet - 50 mg PO 1 hour prior to the CT scan on 05-25-25 1 tablet 05/17/2025 5 FeroSul 325 (65 Fe) MG tablet Take 1 tablet by mouth daily. 04/27/2023 5 lactulose (Chronulac) 10 GM/15ML oral solution Take 15 mL by mouth daily. 03/20/2025 5 lisinopril 2.5 MG tablet Take 1 tablet by mouth daily. 5 magnesium oxide (Mag-Ox) 400 (240 Mg) MG tablet Take 1 tablet by mouth 2 times a day. 60 tablet 05/31/2025 5 metoprolol succinate XL (Toprol-XL) 50 MG 24 hr tablet Take 1 tablet by mouth every morning. Do not crush or chew. 5 predniSONE (Deltasone) 50 MG tablet 50 mg PO, 13, 7, and [address] Scan on 05-25-25. 3 tablet 05/18/2025 5 pregabalin (Lyrica) 25 MG capsule Take 1 capsule by mouth 2 times a day. 02/23/2025 5 rifAXIMin (Xifaxan) 550 MG tabletIndication s:Encephalopathy , hepatic (CMS/HCC) Take 1 tablet by mouth 2 times a day. Medicaid Applicant 180 tablet 05/31/2025 5 rOPINIRole (Requip) 1 MG tablet Take 1 tablet by mouth 3 times a day. 07/20/2022 5 spironolactone (Aldactone) 100 MG tablet Take 1 tablet by mouth 2 times a day. 09/08/2024 5 documented as of this encounter Miscellaneous Notes * Addendum Note - Cari Chambers - 05/31/2025 2:49 PM VASILEncounter addended by: Cari Chambers on: 06/13/2025 6:53 AM Actions taken: Charge Capture section accepted * Progress Notes - Juana Ledesma - 05/31/2025 2:42 PM EST Health Literacy Assessment and Occupational Therapy Treatment Patient Name: Avis Pemberton Today's Date: 05/31/2025 OT Discharge Recommendations: Home with assistance Equipment Recommended: Rollator Subjective I am going home today! Participants in Care Family/Caregiver Present: No Renovation Plant Supervisor: Not Applicable Presentation Oxygen Therapy: None (Room air) Lines and Tubes: Intravenous access Pre-Session: Sitting in chair Pre-Session Comments: Pt in bathroom at beginning of session; pt up ad michelle Post-Session: Standing in room Post-Session Comments: All needs met, RN in room Precautions Left Lower Extremity Weight Bearing Status: Full weight Bearing Right Lower Extremity Weight Bearing Status: Full Weight Bearing Medical Precautions: Fall precautions Objective Pain None stated Delirium Screening RASS: Alert and calm Confusion Assessment Method-ICU (CAM-ICU/PCAM-ICU) Feature 3: Altered Level of Consciousness: Negative Cognition Cognitive Function 1st 15 min Time Entry: 15 Cognitive Function each addl 15 min Time Entry: 15 minutes Transfers Transfer Exam: Sit to stand Level of [place]: Modified independence Physical/Nonphysical Assist: Supervision Assistive Device: Rollator Transfer Exam: Stand to Sit Level of [place]: Modified independence Physical/Nonphysical Assist: Supervision Assistive Device: Walker, rolling Balance Postural Appearance Posture: Within Functional Limits Static Sitting Balance Static Sitting-Balance Support: Feet supported Static Sitting-Level of Assistance: Independent Dynamic Sitting Balance Dynamic Sitting-Balance Support: Feet supported Dynamic Sitting-Balance: Anterior/Posterior weight shifts, Lateral weight shifts Level of Assistance: Independent Static Standing Balance Static Standing-Balance Support: Right upper extremity support, Left upper extremity support Static Standing-Level of Assistance: Supervision Static Standing - Interventions: Rollator Dynamic Standing Balance Dynamic Standing-Balance Support: Right upper extremity support, Left upper extremity support Dynamic Standing-Balance: Lateral weight shifts, Anterior/Posterior weight shifts Dynamic Standing Level of Assistance: Supervision Dynamic Standing - Interventions: Rollator Standardized Assessments(15 minutes) Visuospatial/Executive Points Alternate [place] Markin Visuoconstructional Skills (Cube): 1 Contour: 1 Numbers: 1 Hands: 0 Visuospatial/Executive Total: 4 Naming Lion: 1 Rhinoceros: 1 Camel: 1 Naming Points: 3 Memory 1st Trial: Face, Velvet, Tenriism, Tanika, Red Attention Forward Digit Span: 1 Forward Digit Span: 1 Vigilance: 1 Serial 7's: 3 Attention Points: 6 Language Sentence Repetition: 2 Verbal Fluency: 1 Language Points: 3 Abstraction Similarities/Abstraction Points: 2 Delayed Recall Delayed Recall: 3 Orientation Date: 1 Month: 1 Year: 1 Day : 1 Place: 1 City: 12 Years of Education or Less: Yes Oritentation Points: 7 Total MOCA Score: 28 Patient also participated in cognitive and health literacy evaluations as part of occupational therapy's standard contribution to the liver transplant work-up. The Dick Cognitive Assessment (MOCA) was administered to assist in determining pt.'s cognitive learning styles/needs in relation to health and medication management. Additionally, this assessmentidentifies potential concerns in memory, executive function, and other aspects of functional cogniti ve processing. Pt scored 28/30, indicating no cognitive deficits. 61-66 Health literacy skills were assessed through administration of the Rapid Estimate of Adult Literacy in Medicine (REALM), with patient scoring 66/66, indicating health literacy at or above a high school level. This is consistent with pt. being able to read and comprehend most patient-educationmaterials. Assessment Pt participated in 47 minutes of skilled OT treatment with focus on cognition, health literacy, andfunctional mobility. Pt demonstrated no cognitive deficits via the MOCA and the REALM. Pt demonstrated good safety awareness and is safe to return home. OT Recommendations Discharge Destination: Home with assistance Discharge Equipment: Rollator Plan Continue with POC. Goals OT GOAL DETAILS Goal Established Date Time Frame Goal Status OT Goal 1: Pt will complete LB dressing with set-up and AAD. 05/25/25 2 weeks OT Goal 2: Pt will stand at sink x 10 minutes with SBA to complete grooming tasks with set-up. 05/25/25 2 weeks OT Goal 3: Pt will be independent with bilateral UE therapeutic exercises to increase safety and independence with ADLs and functional mobility. 05/25/25 2 weeks OT Goal 4: Pt will demonstrate understanding of energy conservation/work simplification techniques while completing ADL tasks. 05/25/25 Written by Juana Ledesma on 05/31/25 at 2:42 PM. Cosigned by Justyna Brenner at 06/05/2025 8:13 AM EST Associated attestation - Justyna Brenner - 06/05/2025 8:13 AM EST I have reviewed and agree with the note by this provider for MOCA assessment Justyna Brenner, MS, OTR/L * Progress Notes - Mariluz Borrego - 05/31/2025 2:04 PM EST Physical Therapy Treatment Patient Name: Avis Pemberton Today's Date: 05/31/2025 PT Discharge Recommendations: Home with assistance, Outpatient PT Equipment Recommended: Rollator Subjective Pt agreeable to session, reports she is going home today Participants in Care Family/Caregiver Present: No Renovation Plant Supervisor: Not Applicable Presentation Oxygen Therapy: None (Room air) Lines and Tubes: Intravenous access Pre-Session: Sitting in chair Pre-Session Comments: Pt in bathroom at beginning of session; pt up ad michelle Post-Session: Standing in room Post-Session Comments: All needs met, RN in room Precautions Left Lower Extremity Weight Bearing Status: Full weight Bearing Right Lower Extremity Weight Bearing Status: Full Weight Bearing Medical Precautions: Fall precautions Objective Pain Pt denied any pain throughout session, pt positioned for comfort at end of session Delirium Screening RASS: Alert and calm Confusion Assessment Method-ICU (CAM-ICU/PCAM-ICU) Feature 3: Altered Level of Consciousness: Negative Transfers Transfer Exam: Sit to stand Level of [place]: Modified independence Physical/Nonphysical Assist: Supervision Assistive Device: Rollator Transfer Exam: Stand to Sit Level of [place]: Modified independence Physical/Nonphysical Assist: Supervision Assistive Device: Walker, rolling Toilet Transfer Level of [place]: Modified independence (pt in bathroom upon arrival) Type of Transfer: Ambulation, To toilet Assistive Device: Grab bar Balance Postural Appearance Posture: Within Functional Limits Static Sitting Balance Static Sitting-Balance Support: Feet supported Static Sitting-Level of Assistance: Independent Dynamic Sitting Balance Dynamic Sitting-Balance Support: Feet supported Dynamic Sitting-Balance: Anterior/Posterior weight shifts, Lateral weight shifts Level of Assistance: Independent Static Standing Balance Static Standing-Balance Support: Right upper extremity support, Left upper extremity support Static Standing-Level of Assistance: Supervision Dynamic Standing Balance Dynamic Standing-Balance Support: Right upper extremity support, Left upper extremity support Dynamic Standing-Balance: Lateral weight shifts, Anterior/Posterior weight shifts Dynamic Standing Level of Assistance: Supervision Therapeutic Activity (33 minutes) Pt performed sit <> stand transfers and ambulation throughout session, pt educated on rollator management. Pt performed sitting and standing balance throughout session to improve core strength and activity tolerance. Additional time required for rest breaks and MOCA performed. Gait Training (13 minutes) Device: Rollator Apparatus: None Assistance: Modified independence Distance: 250ft Gait Analysis: Reciprocal gait pattern w/ no overt LOB; decreased jayshree and step length bilaterally Gait Training Interventions: Cueing for rollator management; pt performed obstacle navigation, dualtasks, and pathfinding while ambulating Standardized Assessments [facility] 6-Clicks Mobility Assessment Difficulty patient has turning over in bed (including adjusting bedclothes, sheets, and blankets)?:None Difficulty patient has sitting down on and standing up from a chair with arms (wheelchair, bedside commode, etc.)?: None Difficulty patient has moving from lying on back to sitting on the side of the bed?: None How much help does the patient need moving to and from a bed to a chair (including a wheelchair)?: None How much help does the patient need to walk in hospital room?: None How much help does the patient need climbing 3-5 steps with a railing?: A little [facility] 6-Clicks Mobility Assessment Total : 23 Assessment Pt participated in PT treatment session and tolerated all activities well with no adverse events. Pt demonstrated improved mobility making good progress towards goals and is safe to return home. PT Recommendations Discharge Destination: Home with assistance, Outpatient PT Discharge Equipment: Rollator Plan Continue w/ POC PT Goals PT GOAL DETAILS Goal Established Date Time Frame Goal Status PT Goal 1: Pt will demonstrate the ability to perform transfers with SBA and LRAD 05/25/25 2 weeks PT Goal 2: Pt will demonstrate the ability to amb 250ft with SBA and LRAD 05/25/25 2 weeks PT Goal 3: Pt will demonstrate the ability to navigate 4 stairs with CGA and unilateral handrail 05/25/25 2 weeks Written by Mariluz Borrego on 05/31/25 at 2:12 PM. * Progress Notes - Betzaida Bardales - 05/31/2025 1:34 PM EST Case Management Discharge Note Avis Pemberton 54 y.o. female CSN: [id number] Admission: 05/24/2025 3:09 AM Primary Problem: Sepsis, due to unspecified organism, unspecified whether acute organ dysfunction present Primary Chain Builder Loom Control: Primary Caregiver: Self Assistance Available at Discharge: Current Outpatient/Agency/Support Group: clinic(s), DME Availability of Care Givers (#Hours): 24 hours Family/Chain Builder Loom Control(s) Willingness Assessed to care for patient at home: Yes Family/Chain Builder Loom Control(s) Readiness Assessed to care for patient at home: Yes Housing Circumstances-Z Codes: Housing Circumstances (select all that apply): Low Income (101-300% Federal Poverty Guidlines) - Z596 Discharge Facility/Level of Care Needs: Discharge Facility/Level of Care Needs: 1-Home or Self Care Patient/Family Anticipated Services at Transition: Patient/Family Anticipated Services at Transition: durable medical equipment DME/Equipment Needed after Discharge: Equipment Currently Used at Home: Cpap Equipment Needed After Discharge: Cpap Readmission Within the Last 30 Days: Readmission Within the Last 30 Days: unable to assess Follow-up: Harini Brenner MD [address] [facility] [place] [address] Mc Grant DO [address] [facility] [address] [place] [address] [place] APRN [address], [place] [address] Follow up Providing rollator. Discharge Transportation: Transportation Anticipated: family or friend will provide Transportation Home at Discharge: Family/Friend will Provide Follow Up Transport: Transportation Needed to Follow up Appoinments: Family/Friend will Provide Additional Comments: Per provider, patient is medically ready for discharge. Rollator ordered with [employer]. No other known [facility] needs. Betzaida Bardales * Care Plan - Sharri River RN - 05/31/2025 1:21 PM EST Problem: Adult Inpatient Plan of Care Goal: Plan of Care Review Outcome: Met Flowsheets (Taken 05/31/2025 1318) Progress: improving Plan of Care Reviewed With: patient Goal: Patient-Specific Goal (Individualized) Outcome: Met Flowsheets (Taken 05/31/2025 0800) Patient/Family-Specific Goals (Include Timeframe): Patient will be free from harm throughout this shift Individualized Care Needs: Safety Anxieties, Fears or Concerns: Going home Goal: Absence of Hospital-Acquired Illness or Injury Outcome: Met Intervention: Identify and Manage Fall Risk Flowsheets (Taken 05/31/2025 08) Safety Promotion/Fall Prevention: activity supervised assistive device/personal items within reach clutter-free environment maintained fall prevention program maintained nonskid shoes/slippers when out of bed room organization consistent safety round/check completed Intervention: Prevent Skin Injury Flowsheets (Taken 05/31/20251317) Body Position: education provided Intervention: Prevent and Manage VTE (Venous Thromboembolism) Risk Flowsheets (Taken 05/31/2025799) VTE Prevention/Management: medication education provided Intervention: Prevent Infection Flowsheets (Taken 05/31/20251317) Infection Prevention: hand hygiene promoted Goal: Optimal Comfort and Wellbeing Outcome: Met Intervention: Monitor Pain and Promote Comfort Flowsheets (Taken 05/31/20251317) Pain Management Interventions: declines Intervention: Provide Person-Centered Care Flowsheets (Taken 05/31/20251317) Trust Relationship/Rapport: care explained choices provided empathic listening provided emotional support provided Problem: Sepsis/Septic Shock Goal: Optimal Coping Outcome: Met Intervention: Support Patient and Family Response Flowsheets (Taken 05/31/20251317) Supportive Measures: active listening utilized Family/Support System Care: support provided Goal: Absence of Bleeding Outcome: Met Intervention: Monitor and Manage Bleeding Flowsheets (Taken 05/31/20251317) Bleeding Precautions: monitored for signs of bleeding Goal: Blood Glucose Level Within Target Range Outcome: Met Intervention: Optimize Glycemic Control Flowsheets (Taken 05/31/20251317) Hyperglycemia Management: blood glucose monitored Goal: Absence of Infection Signs and Symptoms Outcome: Met Intervention: Initiate Sepsis Management Flowsheets (Taken 05/31/20251317) Stabilization Measures: legs elevated Infection Prevention: hand hygiene promoted Isolation Precautions: protective Intervention: Promote Stabilization Flowsheets (Taken 05/31/20251317) Fluid/Electrolyte Management: fluids restricted Intervention: Promote Recovery Flowsheets (Taken 05/31/20251317) Activity Management: up in chair Airway/Ventilation Management: position adjusted Sleep/Rest Enhancement: awakenings minimized relaxation techniques promoted Goal: Optimal Nutrition Delivery Outcome: Met Intervention: Optimize Nutrition Delivery Flowsheets (Taken 05/31/20251317) Nutrition Interventions: frequent small meals provided Problem: Liver Failure Goal: Optimal Coping with Liver Failure Outcome: Met Intervention: Support and Optimize Psychosocial Response Flowsheets (Taken 05/31/20251317) Supportive Measures: active listening utilized Diversional Activities: smartphone Family/Support System Care: support provided Goal: Absence of Bleeding Outcome: Met Intervention: Monitor and Manage Bleeding Flowsheets (Taken 05/31/20251317) Bleeding Precautions: monitored for signs of bleeding Goal: Fluid and Electrolyte Balance Outcome: Met Intervention: Monitor and Manage Fluid and Electrolyte Balance Flowsheets (Taken 05/31/20251317) Fluid/Electrolyte Management: fluids restricted Goal: Minimize and Manage Gastrointestinal Symptoms Outcome: Met Intervention: Monitor and Support Gastrointestinal Function Flowsheets (Taken 05/31/20251317) Fluid/Electrolyte Management: fluids restricted Isolation Precautions: protective Goal: Blood Glucose Level Within Target Range Outcome: Met Intervention: Optimize Glycemic Control Flowsheets (Taken 05/31/20251317) Hyperglycemia Management: blood glucose monitored Goal: Hemodynamic Stability Outcome: Met Intervention: Optimize Blood Flow and Promote Renal Function Flowsheets (Taken 05/31/20251317) Stabilization Measures: legs elevated Goal: Absence of Infection Signs and Symptoms Outcome: Met Intervention: Prevent or Manage Infection Flowsheets (Taken 05/31/20251317) Isolation Precautions: protective Goal: Optimize Neurologic Function Outcome: Met Intervention: Monitor and Optimize Neurologic Status Flowsheets (Taken 05/31/20251317) Sensory Stimulation Regulation: quiet environment promoted Goal: Improved Oral Intake Outcome: Met Intervention: Promote and Optimize Nutrition Intake Flowsheets (Taken 05/31/20251317) Nutrition Interventions: frequent small meals provided Goal: Optimal Pain Control, Comfort and Function Outcome: Met Intervention: Prevent or Manage Pain Flowsheets (Taken 05/31/20251317) Pain Management Interventions: declines Sleep/Rest Enhancement: awakenings minimized relaxation techniques promoted Problem: Fall Injury Risk Goal: Absence of Fall and Fall-Related Injury Outcome: Met Intervention: Identify and Manage Contributors Flowsheets (Taken 05/31/20251317) Medication Review/Management: medications reviewed Intervention: Promote Injury-Free Environment Flowsheets (Taken 05/31/2025 0800) Safety Promotion/Fall Prevention: activity supervised assistive device/personal items within reach clutter-free environment maintained fall prevention program maintained nonskid shoes/slippers when out of bed room organization consistent safety round/check completed Problem: Skin Injury Risk Increased Goal: Skin Health and Integrity Outcome: Met Intervention: Optimize Skin Protection Flowsheets (Taken 05/31/2025 1318) Activity Management: up in chair Pressure Reduction Techniques: heels elevated off bed Intervention: Promote and Optimize Oral Intake Flowsheets (Taken 05/31/2025 1318) Nutrition Interventions: frequent small meals provided * Discharge Summary - Alison Burns MD - 05/31/2025 11:49 AM EST Hospitalization Admit Date/Time: 05/24/2025 3:09 AM Admitting Attending: Lisette Quarles Discharge Date: 05/31/25 Discharge Attending Physician: Alison Burns MD PCP name and Address: Trevor Rolon DO [address] [address] / [facility] [address] Referring provider name and address: Harini Brenner MD [address] [place] [address] Post Discharge Instructions Please increase taking bumex to 2 gm twice daily . If you have rapid wt loss, urinating more, may decrease back to once daily. Please start taking magnesium twice daily. Please continue short acting insulin per sliding scale . Please hold taking insulin lantus unless you have persistently high blood glucose above 200. If high, you may resume 10 units daily. 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 Initial workup revealed leukocytosis, elevated lactate, and CT findings of diffuse colonic wall thickening concerning for colitis or portal colopathy. Blood cultures from the outside hospital were positive forE. coli, with a suspected GI source. She received broad-spectrum IV antibiotics (Zosyn), with clinical improvement and resolution of sepsis by 05/27/2025. Repeat cultures at were negative. C. difficile testing was not performed due to formed stool. GI panel -negative. Antibiotics were de-escalated to ciprofloxacin to complete a 7-day course. pt no longer has abdominal pain, diarrhea improved at the time of discharge. Liver Cirrhosis Secondary to GOOD (Decompensated) She has decompensated cirrhosis with portal hypertension, ascites, hepatic encephalopathy, generalized anasarca and chronic hyponatremia. -During admission, she experienced mild ascites and generalized anasarca, with no safe pocket for paracentesis. -HE; Hold lactulose given diarrhea . Continue home , lactulose rifaximin. Continue zinc -Ascites; mild ascites. No safe pocket for paracentesis . -EV: Continue metoprolol -consulted liver tpx and GI . -having generalized anasarca:given iv bumex. Discharged with increased dose bumex 2 mg BID ( was on2 mg daily prior ) and spironolactone 200 mg daily. Wt stable at 204 lbs at the time of discharge. - Continue cholestyramine daily for skin itchiness. - Transplant workup per transplant team:-TTE showed EF 60%, nl RVSP, small PFO -PFT - nl -stress test -negative. -will need Follow up with PCP and recheck CMP in a week. Transaminitis She had persistent transaminitis with elevated AST, ALT, and hyperbilirubinemia throughout the hospitalization. Simvastatin was held due to worsening liver function tests. Liver function was monitored with serial labs, and hepatotoxic agents were avoided. Coagulopathy Anemia, megaloblastic Thrombocytopenia, chronic She exhibited chronic coagulopathy with elevated INR (up to 1.8), thrombocytopenia, and macrocytic anemia. No active bleeding was observed, and hemoglobin was monitored daily. No transfusions were required. Thrombocytopenia and anemia were attributed to underlying liver disease and chronic illness. Diabetes Mellitus Without Complication Her diabetes was managed with insulin and oral agents. Blood glucose was monitored, and she remained on a correctional insulin regimen. Jardiance was held during periods of hypotension and resumed astolerated. No hypoglycemic events were reported. Hemoglobin A1c was 5.4 prior to admission. Rec'd to hold taking lantus and continue ISS> may resume half dose 10 units daily if hyperglycemia. Anxiety and Depression She continued home buspirone and desvenlafaxine for anxiety and depression. Functional Status and Rehabilitation She required assistance with mobility and ADLs due to fatigue, lower extremity edema, and impaired strength and balance. Physical and occupational therapy recommended discharge home with assistance and a rollator. She demonstrated good rehab potential and made progress toward therapy goals. Given script for outpt PT. Follow-up She remains under evaluation for liver transplant and will require ongoing management of cirrhosis,diabetes, and coagulopathy. Outpatient follow-up with hepatology, transplant surgery, and primary care is planned. Decompensated cirrhosis Chronic hyponatremia MELD19 -HE; no present on admission. Hold lactulose given diarrhea . Continue home rifaximin. Continue zinc -Ascites; mild ascites. No safe pocket for paracentesis . Resume home diuretics on 05/26. -EV: Continue metoprolol -consulted liver tpx and GI . Appreciate recs. -having generalized anasarca: started home bumex 2 mg daily and spironolactone 100 mg twice daily. Continues to gain wt. Responded to IV bumex. Will transition to PO bumex 2 gm BID and monitor the response - Continue cholestyramine daily for skin itchiness. - Need daily weights and accurate intake output monitoring - Transplant workup per transplant team:-TTE showed EF 60%, nl RVSP, small PFO -PFT - nl -stress test -nl DM -Home meds; Jardiance, insulin, GLP 1 -inpt regimen: ISS -Continue Lyrica Anxiety and depression - On BuSpar 10 mg daily and Pristiq GERD - Continue home PPI Obesity - Body mass index is 36.82 kg/m??. - complicates all aspects of care -ozepmic. Surgeries and Procedures :PFT, stress test, TTE Medication List PAUSE taking these medications insulin glargine 100 UNIT/ML injection vial Wait to take this until your doctor or other care provider tells you to start again. Please resume 10 unit daily taking if your BG Is persistently high above 200. Commonly known as: Lantus Inject 20 Units under the skin every morning. .. bumetanide 1 MG tablet Commonly known as: Bumex Take 2 tablets by mouth 2 times a day. busPIRone 7.5 MG tablet Commonly known as: Buspar Take 1 tablet by mouth 2 times a day. cyclobenzaprine 10 MG tablet Commonly known as: Flexeril Take 1 tablet by mouth 3 times a day as needed for muscle spasms. desvenlafaxine 50 MG 24 hr tablet Commonly known as: Pristiq Take 1 tablet by mouth daily. Do not crush, chew, or split. diclofenac 1 % topical gel Commonly known as: Voltaren Place 2 g on the skin 4 times a day as needed (joint pain). diphenhydrAMINE 50 MG tablet Commonly known as: Benadryl - 50 mg PO [address] prior to the [address] scan on 05-25-25 ergocalciferol 1.25 MG (35142 UT) capsule Commonly known as: Vitamin D-2 Take 1 capsule by mouth 1 time per week. Take on Wednesday FeroSul 325 (65 Fe) MG tablet Generic drug: ferrous sulfate Take 1 tablet by mouth daily. insulin aspart 100 UNIT/ML injection vial Commonly known as: NovoLOG Inject under the skin 3 (three) times daily with meals per correction scale as follows: blood [id number] use 1 unit, 200-249 use 2 units, 250-299 use 3 units, 300-349 use 4 units, 350-399 use 5 units, >399 use 6 units and call provider. Max daily dose 50 units. Jardiance 25 MG Generic drug: empagliflozin Take 1 tablet by mouth daily. lactulose 10 GM/15ML oral solution Commonly known as: Chronulac Take 15 mL by mouth daily. lansoprazole [address] capsule Commonly known as: Prevacid Take 1 capsule by mouth daily. lisinopril 2.5 MG tablet Take 1 tablet by mouth daily. magnesium oxide 400 (240 Mg) MG tablet Commonly known as: Mag-Ox Take 1 tablet by mouth 2 times a day. metoprolol succinate XL 50 MG 24 hr tablet Commonly known as: Toprol-XL Take 1 tablet by mouth every morning. Do not crush or chew. oxyCODONE 5 MG immediate release tablet Commonly known as: Roxicodone Take 1-1.5 tablets by mouth every 4 to 6 hours as needed for severe pain. Ozempic (1 MG/DOSE) 4 MG/3ML solution pen-injector Generic drug: Semaglutide (1 MG/DOSE) Inject 1 mg under the skin 1 time per week. predniSONE 50 MG tablet Commonly known as: Deltasone 50 mg PO, 13, 7, and [address] Scan on 05-25-25. pregabalin 25 MG capsule Commonly known as: Lyrica Take 1 capsule by mouth 2 times a day. rifAXIMin 550 MG tablet Commonly known as: Xifaxan Take 1 tablet by mouth 2 times a day. Medicaid Applicant rOPINIRole 1 MG tablet Commonly known as: Requip Take 1 tablet by mouth 4 times a day. spironolactone 100 MG tablet Commonly known as: Aldactone Take 2 tablets by mouth every morning. valACYclovir 500 MG tablet Commonly known as: Valtrex Take 1 tablet by mouth every morning. zinc sulfate 220 (50 Zn) MG capsule Commonly known as: Zincate Take 1 capsule by mouth 2 times a day. Where to Get Your Medications These medications were sent to [facility] [place] [address] [facility] [address] [facility] [place] [address] rifAXIMin 550 MG tablet These medications were sent to [facility] [address] bumetanide 1 MG tablet magnesium oxide 400 (240 Mg) MG tablet Information about where to get these medications is not yet available Ask your nurse or doctor about these medications insulin aspart 100 UNIT/ML injection vial Discharge Diagnosis Medical Problems Active and Resolved Hospital Problems Hospital Anxiety and depression Diabetes mellitus without complication 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 If you have rapid wt loss, urinating more, may decrease back to once daily. Please start taking magnesium twice daily. Please continue short acting insulin per sliding scale . Please hold taking insulin lantus unless you have persistently high blood glucose above 200. If high, you may resume 10 units daily. Follow up need -follow up with PCP in 1-2 weeks to check your labs -follow up with GI and transplant clinic -outpatient physical therapy Outpatient Follow-Up Future Appointments Date Time Provider Department Center 06/12/2025 2:30 PM Juana Gale APRN [facility] 06/13/2025 11:30 AM [facility] 06/20/2025 10:30 AM Claire Davidson MD [facility] 06/21/2025 2:[address] [facility] 07/17/2025 8:[address] [facility] 07/17/2025 10:30 AM Nj Johns MD [facility] 07/24/2025 1:00 PM Lesia Cervantes MD [id number] [place] [facility] Test Results Pending At Discharge Pertinent Physical Exam At Time of Discharge Physical Exam GENERAL:Alert and orientated, cooperative, in no acute distress. HEENT:Normal conjunctiva, no scleral icterus, mucous membranes- moist, no oral thrush, no sinus tenderness. CVS:Regular rhythm, normal rate, normal S1/S2, no murmur. RESPIRATORY: Normal breath sounds,clear on auscultation, no wheezing or rales. GASTROINTESTINAL:Normal BS. Abdomen-soft, non tender and distended. MUSCULOSKELETAL:Extremities symmetric,1+ bilateral pedal edema. INTEGUMENTARY:Warm, no rashes or cyanosis. NEUROLOGIC:Non-focal. Cranial nerves II-XII grossly intact. PSYCHIATRIC: Appropriate affect Discharge Disposition/Condition Disposition: Home Condition: Stable (s/sx potential problems absent or manageable) I spent >30 minutes of patient care and instruction time in preparation for this discharge. Alison Burns MD [facility]. Prefer secure chat/ [phone] * Care Plan - Jarvis Ibrahim RN - 05/31/2025 2:52 AM EST Problem: Adult Inpatient Plan of Care Goal: Plan of Care Review Outcome: Ongoing, Progressing Flowsheets Taken 05/31/2025 0247 by Jarvis Ibrahim, RN Progress: improving Taken 05/30/2025 1105 by Oly Mendiola RN Plan of Care Reviewed With: patient Goal: Patient-Specific Goal (Individualized) Outcome: Ongoing, Progressing Flowsheets (Taken 05/31/2025246) Patient/Family-Specific Goals (Include Timeframe): patient will remain free of falls throughout shift Goal: Absence of Hospital-Acquired Illness or Injury Outcome: Ongoing, Progressing Intervention: Identify and Manage Fall Risk Flowsheets (Taken 05/30/20252029) Safety Promotion/Fall Prevention: lighting adjusted clutter-free environment maintained Intervention: Prevent Skin Injury Flowsheets (Taken 05/31/2025246) Body Position: weight shifting Skin Protection: transparent dressing maintained Intervention: Prevent and Manage VTE (Venous Thromboembolism) Risk Flowsheets (Taken 05/31/2025246) VTE Prevention/Management: medication Intervention: Prevent Infection Flowsheets (Taken 05/31/2025246) Infection Prevention: hand hygiene promoted Goal: Optimal Comfort and Wellbeing Outcome: Ongoing, Progressing Intervention: Monitor Pain and Promote Comfort Flowsheets (Taken 05/31/2025246) Pain Management Interventions: medication (see MAR) Intervention: Provide Person-Centered Care Flowsheets (Taken 05/31/2025246) Trust Relationship/Rapport: care explained choices provided questions answered questions encouraged Problem: Sepsis/Septic Shock Goal: Optimal Coping Outcome: Ongoing, Progressing Intervention: Support Patient and Family Response Flowsheets (Taken 05/31/2025246) Supportive Measures: active listening utilized Family/Support System Care: self-care encouraged Goal: Absence of Bleeding Outcome: Ongoing, Progressing Intervention: Monitor and Manage Bleeding Flowsheets (Taken 05/31/2025246) Bleeding Precautions: blood pressure closely monitored Goal: Blood Glucose Level Within Target Range Outcome: Ongoing, Progressing Intervention: Optimize Glycemic Control Flowsheets (Taken 05/31/2025246) Hyperglycemia Management: blood glucose monitored Hypoglycemia Management: blood glucose monitored Goal: Absence of Infection Signs and Symptoms Outcome: Ongoing, Progressing Intervention: Initiate Sepsis Management Flowsheets (Taken 05/31/2025246) Stabilization Measures: legs elevated Infection Management: aseptic technique maintained Infection Prevention: hand hygiene promoted Isolation Precautions: precautions maintained Intervention: Promote Stabilization Flowsheets (Taken 05/31/2025246) Lung Protection Measures: fluid excess minimized Fluid/Electrolyte Management: fluids restricted Fever Reduction/Comfort Measures: lightweight bedding lightweight clothing Intervention: Promote Recovery Flowsheets Taken 05/31/2025246 Sleep/Rest Enhancement: awakenings minimized regular sleep/rest pattern promoted Taken 05/30/20252029 Activity Management: activity adjusted per tolerance Goal: Optimal Nutrition Delivery Outcome: Ongoing, Progressing Intervention: Optimize Nutrition Delivery Flowsheets (Taken 05/31/2025246) Nutrition Support Management: weight trending reviewed Nutrition Interventions: food preferences provided Problem: Liver Failure Goal: Optimal Coping with Liver Failure Outcome: Ongoing, Progressing Intervention: Support and Optimize Psychosocial Response Flowsheets (Taken 05/31/2025246) Supportive Measures: active listening utilized Diversional Activities: television Family/Support System Care: self-care encouraged Goal: Absence of Bleeding Outcome: Ongoing, Progressing Intervention: Monitor and Manage Bleeding Flowsheets (Taken 05/31/2025246) Bleeding Precautions: blood pressure closely monitored Goal: Fluid and Electrolyte Balance Outcome: Ongoing, Progressing Intervention: Monitor and Manage Fluid and Electrolyte Balance Flowsheets (Taken 05/31/2025246) Fluid/Electrolyte Management: fluids restricted Goal: Minimize and Manage Gastrointestinal Symptoms Outcome: Ongoing, Progressing Intervention: Monitor and Support Gastrointestinal Function Flowsheets (Taken 05/31/2025246) Fluid/Electrolyte Management: fluids restricted Nausea/Vomiting Interventions: nausea triggers minimized sips of clear liquids given Isolation Precautions: precautions maintained Goal: Blood Glucose Level Within Target Range Outcome: Ongoing, Progressing Intervention: Optimize Glycemic Control Flowsheets (Taken 05/31/2025246) Hyperglycemia Management: blood glucose monitored Hypoglycemia Management: blood glucose monitored Goal: Hemodynamic Stability Outcome: Ongoing, Progressing Intervention: Optimize Blood Flow and Promote Renal Function Flowsheets (Taken 05/31/2025246) Stabilization Measures: legs elevated Goal: Absence of Infection Signs and Symptoms Outcome: Ongoing, Progressing Intervention: Prevent or Manage Infection Flowsheets (Taken 05/31/2025246) Infection Management: aseptic technique maintained Fever Reduction/Comfort Measures: lightweight bedding lightweight clothing Isolation Precautions: precautions maintained Goal: Optimize Neurologic Function Outcome: Ongoing, Progressing Intervention: Monitor and Optimize Neurologic Status Flowsheets Taken 05/31/2025246 Seizure Precautions: clutter-free environment maintained Taken 05/30/20252029 Head of Bed (HOB) Positioning: HOB elevated Goal: Improved Oral Intake Outcome: Ongoing, Progressing Intervention: Promote and Optimize Nutrition Intake Flowsheets (Taken 05/31/2025246) Nutrition Support Management: weight trending reviewed Oral Nutrition Promotion: rest periods promoted Nutrition Interventions: food preferences provided Goal: Optimal Pain Control, Comfort and Function Outcome: Ongoing, Progressing Intervention: Prevent or Manage Pain Flowsheets (Taken 05/31/2025246) Pain Management Interventions: medication (see MAR) Spiritual Activities Assistance: hope instilled Sleep/Rest Enhancement: awakenings minimized regular sleep/rest pattern promoted Problem: Fall Injury Risk Goal: Absence of Fall and Fall-Related Injury Outcome: Ongoing, Progressing Intervention: Identify and Manage Contributors Flowsheets (Taken 05/31/2025246) Medication Review/Management: medications reviewed Self-Care Promotion: independence encouraged BADL personal objects within reach Intervention: Promote Injury-Free Environment Flowsheets (Taken 05/30/20252029) Safety Promotion/Fall Prevention: lighting adjusted clutter-free environment maintained Problem: Skin Injury Risk Increased Goal: Skin Health and Integrity Outcome: Ongoing, Progressing Intervention: Optimize Skin Protection Flowsheets Taken 05/31/2025246 Pressure Reduction Techniques: frequent weight shift encouraged Pressure Reduction Devices: positioning supports utilized Skin Protection: transparent dressing maintained Taken 05/30/20252029 Activity Management: activity adjusted per tolerance Head of Bed (HOB) Positioning: HOB elevated Intervention: Promote and Optimize Oral Intake Flowsheets (Taken 05/31/2025246) Oral Nutrition Promotion: rest periods promoted Nutrition Interventions: food preferences provided * Significant Event - Cindy Sierra - 05/30/2025 9:09 PM EST Pt refused to wear her home cpap machine * Progress Notes - Alison Burns MD - 05/30/2025 4:07 PM EST Subjective Pt was seen after stress test. Leg swelling was improved yesterday after VIANEY wraps. Has some swelling again this am. Explained plan to try PO bumex BID today and see the response. Review of Systems Complete review of system is negative except mentioned in subjective finding. Objective Vitals Temp: [36.6 ??C (97.9 ??F)-37.2 ??C (99 ??F)] 36.7 ??C (98.1 ??F) Heart Rate: [84-105] 84 Resp: [16] 16 BP: (92-120)/(57-73) 114/73 Physical Exam Physical Exam GENERAL:Alert and orientated, cooperative, in no acute distress. HEENT:Normal conjunctiva, no scleral icterus, mucous membranes- moist, no oral thrush, no sinus tenderness. CVS:Regular rhythm, normal rate, normal S1/S2, no murmur. RESPIRATORY: Normal breath sounds,clear on auscultation, no wheezing or rales. GASTROINTESTINAL:Normal BS. Abdomen-soft, non tender and distended. MUSCULOSKELETAL:Extremities symmetric,2+ bilateral pedal edema. INTEGUMENTARY:Warm, no rashes or cyanosis. NEUROLOGIC:Non-focal. Cranial nerves II-XII grossly intact. 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 Was having diarrhea, fever, diffuse abdominal pain for about 3 days ago. Diarrhea associated with abdominal pain and fever Sepsis sec to E coli bacteremia Diffuse colonic edema concerning for colitis vs hepatic colopathy -suspect GI source . Had dairrhea, fever, abdominalpain with OSH CT concerning for colitis. UA -negative. GI panel -negative. C dif panel -not tested due to formed stool. Coppper -nl. -blood cultures at OSH -positive for e coli-cabrera sensitive -repeat cultures from -NTD -was started zosyn > de-escalatedto cipro. Will finish 7 days course. Anemia, megaloblastic Thrombocytopenia, chronic -hb trending down. No active bleeding. -continue to monitor with daily lab. -GI on board Decompensated cirrhosis Chronic hyponatremia MELD19 -HE; no present on admission. Hold lactulose given diarrhea . Continue home rifaximin. Continue zinc -Ascites; mild ascites. No safe pocket for paracentesis . Resume home diuretics on 05/26. -EV: Continue metoprolol -consulted liver tpx and GI . Appreciate recs. -having generalized anasarca: started home bumex 2 mg daily and spironolactone 100 mg twice daily. Continues to gain wt. Responded to IV bumex. Will transition to PO bumex 2 gm BID and monitor the response - Continue cholestyramine daily for skin itchiness. - Need daily weights and accurate intake output monitoring - Transplant workup per transplant team:-TTE showed EF 60%, nl RVSP, small PFO -PFT - nl -stress test -nl DM -Home meds; Jardiance, insulin, GLP 1 -inpt regimen: ISS -Continue Lyrica Anxiety and depression - On BuSpar 10 mg daily and Pristiq GERD - Continue home PPI CHF PFO - Per chart per chart review, echo on 10/31/2024 noted EF of 55-60% systolic pressure of pulmonary arteries is mildly increased with peak pressure to systolic by Doppler is 34.8 mm Hg Metoprolol 12.5 twice daily, spironolactone. Hold home Jardiance and lisinopril at this time -TTE showed EF 60%, nl RVSP, small PFO -stress test -nl Hyperlipidemia - Holding simvastatin in setting of worsening LFTs/transaminitis Restless leg - Takes Requip 1 mg q.i.d. at home - Currently on 1 mg three times a day Obesity - Body mass index is 36.82 kg/m??. - complicates all aspects of care -ozepmic. Diet; soft diet. DVT prophylaxis: Lovenox Code status:full code Disposition:home Follow up:PCP, GI, transplant Medically Ready for Discharge:Anticipated in 2-4 Days Alison Burns MD [facility]. Prefer secure chat/ [phone] * Consults - Jazmín Hwang RD - 05/30/2025 3:13 PM EST Adult Nutrition Evaluation Note Avis Pemberton 54 y.o. female CSN: [id number] Room/Bed 722/722L Nutrition evaluation type: assessment Reason for evaluation: [facility] Hospital course: Pt is a 54 y.o. female who transferred from [facility] on 05/24 for management of sepsis. Past medical/ surgical history: Past Medical History[1] Surgical History[2] Social history: reviewed Additional comments: 05/30: Pt off of floor for transplant testing at [facility] at time of attempted visit. Tolerating Dickinson this admission per nursing documentation. Vitals and Basic Assessment: BP: 114/73 Temp: 36.7 ??C (98.1 ??F) Oxygen Therapy: None (Room air) O2 Delivery Method: CPAP/Bi-PAP mask Michael Coma Scale Score: 15 Mando Scale Score: 19 Most Recent BM Date: 05/26/25 GI Symptoms: Distention Edema: Right lower extremity, Left lower extremity Allergies: NKFA per EMR Medications: Current Scheduled Medications[3] Current Continuous Medications[4] Current PRN Medications[5] Meds were reviewed: Yes Labs: Lab Results Component Value Date GLUCOSE 116 (H) 05/30/2025 CALCIUM 8.6 (L) 05/30/2025 NA 133 (L) 05/30/2025 K 3.5 (L) 05/30/2025 CO2 26 05/30/2025 CL 100 05/30/2025 BUN 19 05/30/2025 CREATININE 1.01 05/30/2025 PHOS 2.0 (L) 05/30/2025 MG 1.7 (L) 05/30/2025 HGBA1C 5.4 05/18/2025 Lab Results Component Value Date PROT 6.3 04/19/2025 ALBUMIN 2.9 (L) 05/30/2025 Albumin is a negative acute-phase reactant, therefore it is not a good indicator of nutrition status. Lab Results Component Value Date ALT 51 (H) 05/30/2025 AST 73 (H) 05/30/2025 GGT 52 (H) 05/18/2025 ALKPHOS 164 (H) 05/30/2025 BILITOT 2.6 (H) 05/30/2025 Anthropometrics: Height: 162.6 cm (5' 4.02 ) Weight: 92.7 kg (204 lb 6.4 oz) BMI (Calculated): 35.07 Weight Evaluation: Obese-Class 2 (BMI 35-39.9) [place] Body Weight (kg): 54.5 Percent [place] Body Weight: 170 Adjusted Body Weight (kg): 64 Wt Readings from Last 10 Encounters: 05/30/25 92.7 kg (204 lb 6.4 oz) 05/22/25 83.9 kg (185 lb) 05/18/25 84.3 kg (185 lb 13.6 oz) 04/03/25 78 kg (171 lb 15.3 oz) 03/08/25 75.9 kg (167 lb 5.3 oz) 02/22/24 82 kg (180 lb 12.4 oz) 05/14/23 102 kg (225 lb) 12/13/20 116 kg (256 lb 4.2 oz) 11/12/20 118 kg (260 lb 0.2 oz) 09/13/20 110 kg (242 lb) Estimated Needs: Kcal/ K-35 Kcal Provided: 8815-8461 Kcal Needs Based On: Adjusted weight (64 kg) Gm Protein/ Kg : 1.2-1.5 Protein Provided: 77-96 Protein Needs Based On: Adjusted weight (64 kg) Fluid Provided: 1 ml/kcal or per MD team Metabolic Cart Study Results: Current Nutrition Intake: Diet Supplements: Boost Glucose Control Diet Order: Adult Diet Diet Texture: Regular Adult Sodium Restriction: 2,000 mg Na Modified Calorie/ Protein: High calorie, high protein Adult Fluid Restriction / 24 hr: 2000 ml fluid Percent Meals Eaten (%): 69% avg x 14 meals (05/25-05/29) Diet Experience and Nutrition History: Diet Education Provided: Will monitor Pertinent home medications: Medications Ordered Prior to Encounter[6] Druze needs: Nutrition Focused Physical Exam: Unable to Complete Exam: Unable to access exam locations (at [facility]) Physical exam performed on (date): pending Assessment of Malnutrition: Nutrition Problem: Increased nutrient needs (kcal/protein) related to increased metabolic demands as evidenced by decompensated cirrhosis. Status of Nutrition Diagnosis: New Nutrition Interventions and Recommendations: Continue Regular/2g Na+ diet as tolerated. Fluid restriction per MD team (2000 ml/day). Unable to accommodate High Tigre/Pro diet with sodium restriction. Continue Boost GC TID for additional nutrient support. Monitor weight 1-2x weekly. Nursing: please document all PO intakes in the I/Os section of Flowsheets daily. Nutrition Monitoring and Goals: Pt will tolerate >75% meal intakes + ONS. Pt will maintain dry body weight this admission. Will monitor PO intake, weight, skin, labs, nutrition status per acuity. Acuity Level: 1 Jazmín Farrellanan, RD, MS, LD [1] Past Medical History: Diagnosis Date Anemia Anisocoria Arthritis Cataract CHF (congestive heart failure) Diabetes mellitus 2019 History of transfusion Hypertension 2017 Iritis Iritis Migraine Osteomyelitis of vertebra, site unspecified (CMS/HCC) Spinal abscess Other abnormalities of breathing 01/24/2025 Other hypersomnia 03/28/2025 Pain in left knee 03/16/2025 Pain in right arm 08/17/2024 Pain in right foot 03/27/2025 Personal history of other diseases of the female genital tract History of ovarian cyst Unspecified cirrhosis of liver (CMS/HCC) Non-alcoholic cirrhosis [2] Past Surgical History: Procedure Laterality Date APPENDECTOMY BACK SURGERY N/A 1994 BACK SURGERY 2009 BREAST SURGERY N/A Breast Surgery Reduction Procedure Bilateral from [facility] EXPLORATORY LAPAROTOMY GALLBLADDER SURGERY 2018 GANGLION CYST EXCISION, WRIST Left INCISION AND DRAINAGE, ABCESS 2010 from back LIVER BIOPSY OTHER SURGICAL HISTORY N/A Exploratory Laparotomy from [facility] OVARIAN CYST DRAINAGE N/A Aspiration Of Ovarian Cyst from [facility] TOTAL ABDOMINAL HYSTERECTOMY N/A 2011 Hysterectomy from [facility] [3] bumetanide, 2 mg, Oral, BID busPIRone, 7.5 mg, Oral, BID cholestyramine light, 4 g, Oral, Daily ciprofloxacin, 500 mg, Oral, BID desvenlafaxine, 50 mg, Oral, Daily enoxaparin, 40 mg, Subcutaneous, Daily insulin lispro, 0-5 Units, Subcutaneous, TID with meals insulin lispro, 0-3 Units, Subcutaneous, Twice at night metoprolol tartrate, 12.5 mg, Oral, BID pantoprazole, 40 mg, Oral, Daily phosphorus, 250 mg, Oral, TID pregabalin, 25 mg, Oral, Nightly rifAXIMin, 550 mg, Oral, BID rOPINIRole, 1 mg, Oral, TID sodium chloride, 10 mL, Intravenous, q12h spironolactone, 200 mg, Oral, Daily valACYclovir, 500 mg, Oral, q AM zinc sulfate, 220 mg, Oral, BID [4] [5] PRN medications: glucose OR dextrose 10 % OR dextrose 10 % OR glucagon (human recombinant), gi cocktail, hydrOXYzine pamoate, ondansetron ODT OR ondansetron OR ondansetron, Insert peripheral IV AND Saline lock IV AND sodium chloride AND sodium chloride [6] No current facility-administered medications on file prior to encounter. Current Outpatient Medications on File Prior to Encounter Medication Sig Dispense Refill bumetanide (Bumex) 1 MG tablet Take 2 tablets by mouth daily. busPIRone (Buspar) 7.5 MG tablet Take 1 tablet by mouth 2 times a day. cyclobenzaprine (Flexeril) 10 MG tablet Take 1 tablet by mouth 3 times a day as needed for muscle spasms. desvenlafaxine (Pristiq) 50 MG 24 hr tablet Take 1 tablet by mouth daily. Do not crush, chew, or split. diclofenac (Voltaren) 1 % topical gel Place 2 g on the skin 4 times a day as needed (joint pain). ergocalciferol (Vitamin D-2) 1.25 MG (30891 UT) capsule Take 1 capsule by mouth 1 time per week. Take on Wednesday FeroSul 325 (65 Fe) MG tablet Take 1 tablet by mouth daily. insulin aspart (NovoLOG) 100 UNIT/ML injection vial Inject 5 Units under the skin 3 times a day before meals. If blood sugar is greater than 150 insulin glargine (Lantus) 100 UNIT/ML injection vial Inject 20 Units under the skin every morning. Jardiance 25 MG Take 1 tablet by mouth daily. lactulose (Chronulac) 10 GM/15ML oral solution Take 15 mL by mouth daily. lansoprazole (Prevacid) [address] capsule Take 1 capsule by mouth daily. lisinopril 2.5 MG tablet Take 1 tablet by mouth daily. metoprolol succinate XL (Toprol-XL) 50 MG 24 hr tablet Take 1 tablet by mouth every morning. Do notcrush or chew. oxyCODONE (Roxicodone) 5 MG immediate release tablet Take 1-1.5 tablets by mouth every 4 to 6 hoursas needed for severe pain. Ozempic, 1 MG/DOSE, 4 MG/3ML solution pen-injector Inject 1 mg under the skin 1 time per week. pregabalin (Lyrica) 25 MG capsule Take 1 capsule by mouth 2 times a day. rOPINIRole (Requip) 1 MG tablet Take 1 tablet by mouth 4 times a day. spironolactone (Aldactone) 100 MG tablet Take 2 tablets by mouth every morning. valACYclovir (Valtrex) 500 MG tablet Take 1 tablet by mouth every morning. diphenhydrAMINE (Benadryl) 50 MG tablet - 50 mg PO 1 hour prior to the CT scan on 05-25-25 1 tablet0 predniSONE (Deltasone) 50 MG tablet 50 mg PO, 13, 7, and [address] prior to the CT Scan on 05-25-25. 3tablet 0 rifAXIMin (Xifaxan) 550 MG tablet Take 1 tablet by mouth 2 times a day. zinc sulfate (Zincate) 220 (50 Zn) MG capsule Take 1 capsule by mouth 2 times a day. 240 capsule 2 [DISCONTINUED] baclofen (Lioresal) 10 MG tablet Take 1 tablet by mouth nightly. (Patient not taking: Reported on 05/18/2025) 30 tablet 0 [DISCONTINUED] desvenlafaxine (Pristiq) 100 MG 24 hr tablet Take 50 mg by mouth daily. [DISCONTINUED] hydrOXYzine pamoate (Vistaril) 25 MG capsule Take 1 capsule by mouth 3 times a day as needed for itching. [DISCONTINUED] insulin glargine (Lantus SoloStar) 100 UNIT/ML injection pen Inject 20 Units under the skin every morning. [DISCONTINUED] lisinopril 2.5 MG tablet Take 1 tablet by mouth daily. [DISCONTINUED] metoprolol succinate XL (Toprol-XL) 50 MG 24 hr tablet Take 1 tablet by mouth daily. [DISCONTINUED] NovoLOG FLEXPEN 100 UNIT/ML injection pen Inject 5 Units under the skin 3 times a day as needed for high blood sugar (for BG > 150). [DISCONTINUED] ondansetron ODT (Zofran-ODT) 8 MG disintegrating tablet Dissolve 1 tablet on the tongue every 8 hours as needed for nausea or vomiting. [DISCONTINUED] potassium chloride CR (Klor-Con M20) 20 MEQ ER tablet Take 1 tablet by mouth 2 timesa day. [DISCONTINUED] promethazine (Phenergan) 25 MG tablet Take 1 tablet by mouth 3 times a day as neededfor nausea or vomiting (if not helped by ondansetron). [DISCONTINUED] Rimegepant Sulfate (Nurtec) 75 MG tablet dispersible Dissolve 1 tablet on the tonguedaily as needed (migraine headache). [DISCONTINUED] simvastatin (Zocor) 20 MG tablet Take 1 tablet by mouth nightly. * Progress Notes - Joe Garcia APRN - 05/30/2025 1:10 PM EST Abdominal Transplant Surgery Consult Follow-Up Note Ms. Avis Pemberton is a 54 YO F with [facility]ens[facility] who has been undergoing transplant evaluation, presented to the ED on 05/[address] of EMS from and OSH with c/o abdominal pain. MELD 3.0: 19 per labs 05/30/25, ABO A+ Patient is unavailable for assessment & interview as she is off the floor for testing neccessary for liver transplant evaluation. Reviewed interval flowsheets, labs, & 24 hour events. If patient remains hospitalized; will f/u with patient on Friday 06/01. Please feel free to reach out with any questions * Care Plan - Oly Mendiola RN - 05/30/2025 11:16 AM EST Problem: Adult Inpatient Plan of Care Goal: Plan of Care Review Outcome: Ongoing, Progressing Flowsheets (Taken 05/30/2025 1105) Progress: improving Outcome Evaluation: patient understood the plan of care for the shift Plan of Care Reviewed With: patient Goal: Patient-Specific Goal (Individualized) Outcome: Ongoing, Progressing Flowsheets (Taken 05/30/2025 0800) Patient/Family-Specific Goals (Include Timeframe): apetint will be free from injury during the shift Individualized Care Needs: safety Anxieties, Fears or Concerns: none stated Goal: Absence of Hospital-Acquired Illness or Injury Outcome: Ongoing, Progressing Intervention: Identify and Manage Fall Risk Flowsheets (Taken 05/30/2025 1105) Safety Promotion/Fall Prevention: activity supervised clutter-free environment maintained fall prevention program maintained mobility aid in reach nonskid shoes/slippers when out of bed room organization consistent safety round/check completed Intervention: Prevent Skin Injury Flowsheets (Taken 05/30/2025 1105) Body Position: weight shifting Skin Protection: incontinence pads utilized Intervention: Prevent and Manage VTE (Venous Thromboembolism) Risk Flowsheets (Taken 05/30/2025 0800) VTE Prevention/Management: SCDs (sequential compression devices) off Intervention: Prevent Infection Flowsheets (Taken 05/30/2025 1105) Infection Prevention: hand hygiene promoted equipment surfaces disinfected personal protective equipment utilized Problem: Sepsis/Septic Shock Goal: Optimal Coping Outcome: Ongoing, Progressing Intervention: Support Patient and Family Response Flowsheets (Taken 05/30/2025 1105) Supportive Measures: active listening utilized relaxation techniques promoted self-care encouraged Family/Support System Care: self-care encouraged Goal: Absence of Bleeding Outcome: Ongoing, Progressing Intervention: Monitor and Manage Bleeding Flowsheets (Taken 05/30/2025 1105) Bleeding Precautions: blood pressure closely monitored Goal: Blood Glucose Level Within Target Range Outcome: Ongoing, Progressing Intervention: Optimize Glycemic Control Flowsheets (Taken 05/30/2025 1105) Hyperglycemia Management: blood glucose monitored correctional insulin given Hypoglycemia Management: blood glucose monitored Goal: Absence of Infection Signs and Symptoms Outcome: Ongoing, Progressing Intervention: Initiate Sepsis Management Flowsheets (Taken 05/30/2025 1105) Stabilization Measures: legs elevated Infection Prevention: hand hygiene promoted equipment surfaces disinfected personal protective equipment utilized Isolation Precautions: precautions maintained Intervention: Promote Stabilization Flowsheets (Taken 05/30/2025 1105) Fluid/Electrolyte Management: fluids restricted Fever Reduction/Comfort Measures: lightweight bedding lightweight clothing Intervention: Promote Recovery Flowsheets (Taken 05/30/2025 1111) Activity Management: activity adjusted per tolerance Airway/Ventilation Management: airway patency maintained Sleep/Rest Enhancement: awakenings minimized Goal: Optimal Nutrition Delivery Outcome: Ongoing, Progressing Intervention: Optimize Nutrition Delivery Flowsheets (Taken 05/30/2025 1111) Nutrition Support Management: weight trending reviewed Nutrition Interventions: food preferences provided Problem: Liver Failure Goal: Optimal Coping with Liver Failure Outcome: Ongoing, Progressing Intervention: Support and Optimize Psychosocial Response Flowsheets Taken 05/30/2025 1111 Diversional Activities: tablet Family/Support System Care: self-care encouraged Taken 05/30/2025 1105 Supportive Measures: active listening utilized relaxation techniques promoted self-care encouraged Goal: Absence of Bleeding Outcome: Ongoing, Progressing Intervention: Monitor and Manage Bleeding Flowsheets (Taken 05/30/2025 1105) Bleeding Precautions: blood pressure closely monitored Goal: Fluid and Electrolyte Balance Outcome: Ongoing, Progressing Intervention: Monitor and Manage Fluid and Electrolyte Balance Flowsheets (Taken 05/30/2025 1105) Fluid/Electrolyte Management: fluids restricted Goal: Minimize and Manage Gastrointestinal Symptoms Outcome: Ongoing, Progressing Intervention: Monitor and Support Gastrointestinal Function Flowsheets Taken 05/30/2025 1111 Nausea/Vomiting Interventions: slow deep breathing encouraged Isolation Precautions: precautions maintained Oral Care: education provided Taken 05/30/2025 1105 Fluid/Electrolyte Management: fluids restricted Goal: Blood Glucose Level Within Target Range Outcome: Ongoing, Progressing Intervention: Optimize Glycemic Control Flowsheets Taken 05/30/2025 1111 Hypoglycemia Management: blood glucose monitored Taken 05/30/2025 1105 Hyperglycemia Management: blood glucose monitored correctional insulin given Goal: Hemodynamic Stability Outcome: Ongoing, Progressing Intervention: Optimize Blood Flow and Promote Renal Function Flowsheets (Taken 05/30/2025 1111) Stabilization Measures: legs elevated Goal: Absence of Infection Signs and Symptoms Outcome: Ongoing, Progressing Intervention: Prevent or Manage Infection Flowsheets Taken 05/30/2025 1111 Infection Management: aseptic technique maintained Isolation Precautions: precautions maintained Taken 05/30/2025 1105 Fever Reduction/Comfort Measures: lightweight bedding lightweight clothing Goal: Optimize Neurologic Function Outcome: Ongoing, Progressing Intervention: Monitor and Optimize Neurologic Status Flowsheets (Taken 05/30/2025 1111) Hepatic Encephalopathy Management: airway protection maintained Sensory Stimulation Regulation: television on Seizure Precautions: activity supervised Head of Bed (HOB) Positioning: HOB elevated Goal: Improved Oral Intake Outcome: Ongoing, Progressing Intervention: Promote and Optimize Nutrition Intake Flowsheets (Taken 05/30/2025 1111) Nutrition Support Management: weight trending reviewed Oral Nutrition Promotion: physical activity promoted Nutrition Interventions: food preferences provided Goal: Optimal Pain Control, Comfort and Function Outcome: Ongoing, Progressing Intervention: Prevent or Manage Pain Flowsheets (Taken 05/30/2025 1111) Pain Management Interventions: relaxation techniques promoted Sleep/Rest Enhancement: awakenings minimized Problem: Fall Injury Risk Goal: Absence of Fall and Fall-Related Injury Outcome: Ongoing, Progressing Intervention: Identify and Manage Contributors Flowsheets (Taken 05/30/2025 1111) Medication Review/Management: medications reviewed Self-Care Promotion: independence encouraged BADL personal objects within reach Intervention: Promote Injury-Free Environment Flowsheets (Taken 05/30/2025 1105) Safety Promotion/Fall Prevention: activity supervised clutter-free environment maintained fall prevention program maintained mobility aid in reach nonskid shoes/slippers when out of bed room organization consistent safety round/check completed Problem: Skin Injury Risk Increased Goal: Skin Health and Integrity Outcome: Ongoing, Progressing Intervention: Optimize Skin Protection Flowsheets (Taken 05/30/2025 1111) Activity Management: activity adjusted per tolerance Pressure Reduction Techniques: frequent weight shift encouraged Pressure Reduction Devices: positioning supports utilized Skin Protection: incontinence pads utilized Head of Bed (HOB) Positioning: HOB elevated Intervention: Promote and Optimize Oral Intake Flowsheets (Taken 05/30/2025 1111) Oral Nutrition Promotion: physical activity promoted Nutrition Interventions: food preferences provided * Care Plan - Carlos Enrique Cobb RN - 05/30/2025 2:40 AM EST Problem: Adult Inpatient Plan of Care Goal: Plan of Care Review Outcome: Ongoing, Progressing Flowsheets (Taken 05/30/2025 0233) Progress: improving Outcome Evaluation: Patient will be able to tolerate pain during the entire shift Plan of Care Reviewed With: patient Goal: Patient-Specific Goal (Individualized) Outcome: Ongoing, Progressing Flowsheets (Taken 05/29/20251999) Patient/Family-Specific Goals (Include Timeframe): Patient will be free from fall during the entireshift Individualized Care Needs: safety Anxieties, Fears or Concerns: I want to walk in the hallway to exercise Per patient Goal: Absence of Hospital-Acquired Illness or Injury Outcome: Ongoing, Progressing Intervention: Identify and Manage Fall Risk Flowsheets (Taken 05/30/2025 0233) Safety Promotion/Fall Prevention: room organization consistent safety round/check completed Intervention: Prevent Skin Injury Flowsheets (Taken 05/30/2025 0233) Body Position: weight shifting Skin Protection: incontinence pads utilized Intervention: Prevent and Manage VTE (Venous Thromboembolism) Risk Flowsheets (Taken 05/30/2025 0233) VTE Prevention/Management: compression stockings on Intervention: Prevent Infection Flowsheets (Taken 05/30/2025 023) Infection Prevention: hand hygiene promoted Goal: Optimal Comfort and Wellbeing Outcome: Ongoing, Progressing Intervention: Monitor Pain and Promote Comfort Flowsheets (Taken 05/30/2025 0233) Pain Management Interventions: medication (see MAR) Intervention: Provide Person-Centered Care Flowsheets (Taken 05/30/2025232) Trust Relationship/Rapport: care explained choices provided emotional support provided empathic listening provided questions answered questions encouraged Problem: Sepsis/Septic Shock Goal: Optimal Coping Outcome: Ongoing, Progressing Intervention: Support Patient and Family Response Flowsheets (Taken 05/30/2025232) Supportive Measures: active listening utilized Family/Support System Care: self-care encouraged Goal: Absence of Bleeding Outcome: Ongoing, Progressing Intervention: Monitor and Manage Bleeding Flowsheets (Taken 05/30/2025232) Bleeding Precautions: blood pressure closely monitored Bleeding Management: affected area elevated Goal: Blood Glucose Level Within Target Range Outcome: Ongoing, Progressing Intervention: Optimize Glycemic Control Flowsheets (Taken 05/30/2025232) Hyperglycemia Management: blood glucose monitored Hypoglycemia Management: blood glucose monitored Goal: Absence of Infection Signs and Symptoms Outcome: Ongoing, Progressing Intervention: Initiate Sepsis Management Flowsheets (Taken 05/30/2025232) Stabilization Measures: legs elevated Infection Management: aseptic technique maintained Infection Prevention: hand hygiene promoted Isolation Precautions: precautions maintained Intervention: Promote Stabilization Flowsheets (Taken 05/30/2025232) Lung Protection Measures: other (see comments) Fluid/Electrolyte Management: fluids restricted Fever Reduction/Comfort Measures: lightweight clothing Intervention: Promote Recovery Flowsheets (Taken 05/30/2025232) Activity Management: activity adjusted per tolerance Airway/Ventilation Management: airway patency maintained Sleep/Rest Enhancement: awakenings minimized Goal: Optimal Nutrition Delivery Outcome: Ongoing, Progressing Intervention: Optimize Nutrition Delivery Flowsheets (Taken 05/30/2025232) Nutrition Support Management: weight trending reviewed Nutrition Interventions: frequent small meals provided Problem: Liver Failure Goal: Optimal Coping with Liver Failure Outcome: Ongoing, Progressing Intervention: Support and Optimize Psychosocial Response Flowsheets (Taken 05/30/2025232) Supportive Measures: active listening utilized Diversional Activities: television Family/Support System Care: self-care encouraged Goal: Absence of Bleeding Outcome: Ongoing, Progressing Intervention: Monitor and Manage Bleeding Flowsheets (Taken 05/30/2025232) Bleeding Precautions: blood pressure closely monitored Goal: Fluid and Electrolyte Balance Outcome: Ongoing, Progressing Intervention: Monitor and Manage Fluid and Electrolyte Balance Flowsheets (Taken 05/30/2025232) Fluid/Electrolyte Management: fluids restricted Goal: Minimize and Manage Gastrointestinal Symptoms Outcome: Ongoing, Progressing Intervention: Monitor and Support Gastrointestinal Function Flowsheets (Taken 05/30/2025232) Perineal Care: education provided Fluid/Electrolyte Management: fluids restricted Nausea/Vomiting Interventions: slow deep breathing encouraged Isolation Precautions: precautions maintained Oral Care: education provided Goal: Blood Glucose Level Within Target Range Outcome: Ongoing, Progressing Intervention: Optimize Glycemic Control Flowsheets (Taken 05/30/2025232) Hyperglycemia Management: blood glucose monitored Hypoglycemia Management: blood glucose monitored Goal: Hemodynamic Stability Outcome: Ongoing, Progressing Intervention: Optimize Blood Flow and Promote Renal Function Flowsheets (Taken 05/30/2025232) Stabilization Measures: legs elevated Goal: Absence of Infection Signs and Symptoms Outcome: Ongoing, Progressing Intervention: Prevent or Manage Infection Flowsheets (Taken 05/30/2025232) Infection Management: aseptic technique maintained Fever Reduction/Comfort Measures: lightweight clothing Isolation Precautions: precautions maintained Goal: Optimize Neurologic Function Outcome: Ongoing, Progressing Intervention: Monitor and Optimize Neurologic Status Flowsheets (Taken 05/30/2025232) Hepatic Encephalopathy Management: airway protection maintained Sensory Stimulation Regulation: television on Seizure Precautions: activity supervised Head of Bed (HOB) Positioning: HOB at 20-30 degrees Goal: Improved Oral Intake Outcome: Ongoing, Progressing Intervention: Promote and Optimize Nutrition Intake Flowsheets (Taken 05/30/2025232) Nutrition Support Management: weight trending reviewed Oral Nutrition Promotion: rest periods promoted Nutrition Interventions: frequent small meals provided Goal: Optimal Pain Control, Comfort and Function Outcome: Ongoing, Progressing Intervention: Prevent or Manage Pain Flowsheets (Taken 05/30/2025232) Pain Management Interventions: medication (see MAR) Complementary Therapy: music therapy provided Spiritual Activities Assistance: music provided Sleep/Rest Enhancement: awakenings minimized Problem: Fall Injury Risk Goal: Absence of Fall and Fall-Related Injury Outcome: Ongoing, Progressing Intervention: Identify and Manage Contributors Flowsheets (Taken 05/30/2025232) Medication Review/Management: medications reviewed Self-Care Promotion: independence encouraged Intervention: Promote Injury-Free Environment Flowsheets (Taken 05/30/2025232) Safety Promotion/Fall Prevention: room organization consistent safety round/check completed Problem: Skin Injury Risk Increased Goal: Skin Health and Integrity Outcome: Ongoing, Progressing Intervention: Optimize Skin Protection Flowsheets (Taken 05/30/2025232) Activity Management: activity adjusted per tolerance Pressure Reduction Techniques: frequent weight shift encouraged Pressure Reduction Devices: positioning supports utilized Skin Protection: incontinence pads utilized Head of Bed (HOB) Positioning: HOB at 20-30 degrees Intervention: Promote and Optimize Oral Intake Flowsheets (Taken 05/30/2025 0233) Oral Nutrition Promotion: rest periods promoted Nutrition Interventions: frequent small meals provided * Care Plan - Oly Mendiola RN - 05/29/2025 1:39 PM EST Problem: Adult Inpatient Plan of Care Goal: Plan of Care Review Outcome: Ongoing, Progressing Flowsheets (Taken 05/29/2025 1330) Progress: improving Outcome Evaluation: patient understood the plan of care for the shift Plan of Care Reviewed With: patient Goal: Patient-Specific Goal (Individualized) Outcome: Ongoing, Progressing Flowsheets (Taken 05/29/2025 0800) Patient/Family-Specific Goals (Include Timeframe): Patient will be free from injury during the shift Individualized Care Needs: safety Anxieties, Fears or Concerns: NONE STATED Goal: Absence of Hospital-Acquired Illness or Injury Outcome: Ongoing, Progressing Intervention: Identify and Manage Fall Risk Flowsheets (Taken 05/29/2025 1330) Safety Promotion/Fall Prevention: fall prevention program maintained activity supervised clutter-free environment maintained nonskid shoes/slippers when out of bed room organization consistent safety round/check completed mobility aid in reach Intervention: Prevent Skin Injury Flowsheets (Taken 05/29/2025 1330) Body Position: weight shifting Skin Protection: incontinence pads utilized Intervention: Prevent and Manage VTE (Venous Thromboembolism) Risk Flowsheets (Taken 05/29/2025 1200) VTE Prevention/Management: SCDs (sequential compression devices) off Intervention: Prevent Infection Flowsheets (Taken 05/29/2025 1330) Infection Prevention: hand hygiene promoted equipment surfaces disinfected environmental surveillance performed single patient room provided Problem: Sepsis/Septic Shock Goal: Optimal Coping Outcome: Ongoing, Progressing Intervention: Support Patient and Family Response Flowsheets (Taken 05/29/2025 1330) Supportive Measures: active listening utilized self-care encouraged relaxation techniques promoted Family/Support System Care: self-care encouraged Goal: Absence of Bleeding Outcome: Ongoing, Progressing Intervention: Monitor and Manage Bleeding Flowsheets (Taken 05/29/2025 1330) Bleeding Precautions: blood pressure closely monitored Goal: Blood Glucose Level Within Target Range Outcome: Ongoing, Progressing Intervention: Optimize Glycemic Control Flowsheets (Taken 05/29/2025 1330) Hyperglycemia Management: blood glucose monitored correctional insulin given Hypoglycemia Management: blood glucose monitored Goal: Absence of Infection Signs and Symptoms Outcome: Ongoing, Progressing Intervention: Initiate Sepsis Management Flowsheets (Taken 05/29/2025 1330) Stabilization Measures: legs elevated Infection Management: aseptic technique maintained Infection Prevention: hand hygiene promoted equipment surfaces disinfected environmental surveillance performed single patient room provided Isolation Precautions: precautions maintained contact droplet Intervention: Promote Stabilization Flowsheets (Taken 05/29/2025 1330) Fluid/Electrolyte Management: fluids restricted Fever Reduction/Comfort Measures: lightweight bedding lightweight clothing Intervention: Promote Recovery Flowsheets Taken 05/29/2025 1330 Sleep/Rest Enhancement: natural light exposure provided relaxation techniques promoted noise level reduced Taken 05/29/2025 0800 Activity Management: activity adjusted per tolerance Goal: Optimal Nutrition Delivery Outcome: Ongoing, Progressing Intervention: Optimize Nutrition Delivery Flowsheets (Taken 05/29/2025 1330) Nutrition Support Management: weight trending reviewed Nutrition Interventions: food preferences provided Problem: Liver Failure Goal: Optimal Coping with Liver Failure Outcome: Ongoing, Progressing Intervention: Support and Optimize Psychosocial Response Flowsheets (Taken 05/29/2025 1330) Supportive Measures: active listening utilized self-care encouraged relaxation techniques promoted Diversional Activities: television Family/Support System Care: self-care encouraged Goal: Absence of Bleeding Outcome: Ongoing, Progressing Intervention: Monitor and Manage Bleeding Flowsheets (Taken 05/29/2025 1330) Bleeding Precautions: blood pressure closely monitored Goal: Fluid and Electrolyte Balance Outcome: Ongoing, Progressing Intervention: Monitor and Manage Fluid and Electrolyte Balance Flowsheets (Taken 05/29/2025 1330) Fluid/Electrolyte Management: fluids restricted Goal: Minimize and Manage Gastrointestinal Symptoms Outcome: Ongoing, Progressing Intervention: Monitor and Support Gastrointestinal Function Flowsheets (Taken 05/29/2025 1330) Perineal Care: education provided Fluid/Electrolyte Management: fluids restricted Isolation Precautions: precautions maintained contact droplet Oral Care: education provided Goal: Blood Glucose Level Within Target Range Outcome: Ongoing, Progressing Intervention: Optimize Glycemic Control Flowsheets (Taken 05/29/2025 1330) Hyperglycemia Management: blood glucose monitored correctional insulin given Hypoglycemia Management: blood glucose monitored Goal: Hemodynamic Stability Outcome: Ongoing, Progressing Intervention: Optimize Blood Flow and Promote Renal Function Flowsheets (Taken 05/29/2025 1330) Stabilization Measures: legs elevated Goal: Absence of Infection Signs and Symptoms Outcome: Ongoing, Progressing Intervention: Prevent or Manage Infection Flowsheets (Taken 05/29/2025 1330) Infection Management: aseptic technique maintained Fever Reduction/Comfort Measures: lightweight bedding lightweight clothing Isolation Precautions: precautions maintained contact droplet Goal: Optimize Neurologic Function Outcome: Ongoing, Progressing Intervention: Monitor and Optimize Neurologic Status Flowsheets (Taken 05/29/2025 1330) Hepatic Encephalopathy Management: airway protection maintained Sensory Stimulation Regulation: television on Head of Bed (HOB) Positioning: HOB elevated Goal: Improved Oral Intake Outcome: Ongoing, Progressing Intervention: Promote and Optimize Nutrition Intake Flowsheets (Taken 05/29/2025 1330) Nutrition Support Management: weight trending reviewed Oral Nutrition Promotion: physical activity promoted Nutrition Interventions: food preferences provided Goal: Optimal Pain Control, Comfort and Function Outcome: Ongoing, Progressing Intervention: Prevent or Manage Pain Flowsheets (Taken 05/29/2025 1330) Pain Management Interventions: relaxation techniques promoted Sleep/Rest Enhancement: natural light exposure provided relaxation techniques promoted noise level reduced Problem: Fall Injury Risk Goal: Absence of Fall and Fall-Related Injury Outcome: Ongoing, Progressing Intervention: Identify and Manage Contributors Flowsheets (Taken 05/29/2025 1330) Medication Review/Management: medications reviewed Self-Care Promotion: independence encouraged Intervention: Promote Injury-Free Environment Flowsheets (Taken 05/29/2025 1330) Safety Promotion/Fall Prevention: fall prevention program maintained activity supervised clutter-free environment maintained nonskid shoes/slippers when out of bed room organization consistent safety round/check completed mobility aid in reach Problem: Skin Injury Risk Increased Goal: Skin Health and Integrity Outcome: Ongoing, Progressing Intervention: Optimize Skin Protection Flowsheets Taken 05/29/2025 1330 Pressure Reduction Techniques: frequent weight shift encouraged Pressure Reduction Devices: positioning supports utilized Skin Protection: incontinence pads utilized Head of Bed (HOB) Positioning: HOB elevated Taken 05/29/2025 0800 Activity Management: activity adjusted per tolerance Intervention: Promote and Optimize Oral Intake Flowsheets (Taken 05/29/2025 1330) Oral Nutrition Promotion: physical activity promoted Nutrition Interventions: food preferences provided * Progress Notes - Grant, Alison Navarro MD - 05/29/2025 12:59 PM EST Subjective Pt was seen after PFT. She said it was difficult and she was not able to follow . Worried that she is going to fail the rest. Not able to do ABG. Urinated well but wt at 205. Plan to give bumex iv bid. Plan for stress test in am. Review of Systems Complete review of system is negative except mentioned in subjective finding. Objective Vitals Temp: [36.6 ??C (97.9 ??F)-36.9 ??C (98.4 ??F)] 36.6 ??C (97.9 ??F) Heart Rate: [83-96] 90 Resp: [16] 16 BP: (93-117)/(59-77) 98/61 Physical Exam Physical Exam GENERAL:Alert and orientated, cooperative, in no acute distress. HEENT:Normal conjunctiva, no scleral icterus, mucous membranes- moist, no oral thrush, no sinus tenderness. CVS:Regular rhythm, normal rate, normal S1/S2, no murmur. RESPIRATORY: Normal breath sounds,clear on auscultation, no wheezing or rales. GASTROINTESTINAL:Normal BS. Abdomen-soft, non tender and distended. MUSCULOSKELETAL:Extremities symmetric,2+ bilateral pedal edema. INTEGUMENTARY:Warm, no rashes or cyanosis. NEUROLOGIC:Non-focal. Cranial nerves II-XII grossly intact. 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 Was having diarrhea, fever, diffuse abdominal pain for about 3 days ago. Diarrhea associated with abdominal pain and fever Sepsis sec to E coli bacteremia Diffuse colonic edema concerning for colitis vs hepatic colopathy -suspect GI source . Had dairrhea, fever, abdominalpain with OSH CT concerning for colitis. UA -negative. -was started iv zosyn GI panel -negative. C dif panel -not tested due to formed stool. Coppper -nl. Pending copper level. -blood cultures at OSH -positive for e coli-cabrera sensitive -repeat cultures from [facility] -NTD -will de-escalate to cipro. Will finish 7 days course. Anemia, megaloblastic Thrombocytopenia, chronic -hb trending down. No active bleeding. -continue to monitor with daily lab. -GI on board Decompensated cirrhosis Chronic hyponatremia MELD 23 -HE; no present on admission. Hold lactulose given diarrhea . Continue home rifaximin. Continue zinc -Ascites; mild ascites. No safe pocket for paracentesis . Resume home diuretics on 05/26. -EV: Continue metoprolol -consulted liver tpx and GI . Appreciate recs. -having generalized anasarca: started home bumex 2 mg daily and spironolactone 100 mg twice daily. Continues to gain wt. Will increase bumex to IV 2 gm BID - Continue cholestyramine daily for skin itchiness. - Need daily weights and accurate intake output monitoring - Transplant workup per transplant team DM -Home meds; Jardiance, insulin, GLP 1 -inpt regimen: ISS -Continue Lyrica Anxiety and depression - On BuSpar 10 mg daily and Pristiq GERD - Continue home PPI CHF PFO - Per chart per chart review, echo on 10/31/2024 noted EF of 55-60% systolic pressure of pulmonary arteries is mildly increased with peak pressure to systolic by Doppler is 34.8 mm Hg Metoprolol 12.5 twice daily, spironolactone. Hold home Jardiance and lisinopril at this time -TTE showed EF 60%, nl RVSP, small PFO Hyperlipidemia - Holding simvastatin in setting of worsening LFTs/transaminitis Restless leg - Takes Requip 1 mg q.i.d. at home - Currently on 1 mg three times a day Obesity - Body mass index is 36.82 kg/m??. - complicates all aspects of care -ozepmic. Diet; soft diet. DVT prophylaxis: Lovenox Code status:full code Disposition:home Follow up:PCP, GI, transplant Medically Ready for Discharge:Anticipated in 2-4 Days Alison Burns MD [facility]. Prefer secure chat/ [phone] * Care Plan - Carlos Enrique Cobb RN - 05/29/2025 2:16 AM EST Problem: Adult Inpatient Plan of Care Goal: Plan of Care Review Outcome: Ongoing, Progressing Flowsheets (Taken 05/29/2025209) Progress: improving Outcome Evaluation: Patient will be able to participate in the plan of care Plan of Care Reviewed With: patient Goal: Patient-Specific Goal (Individualized) Outcome: Ongoing, Progressing Flowsheets (Taken 05/28/20251999) Patient/Family-Specific Goals (Include Timeframe): Patient will be free from fall during the entireshift Individualized Care Needs: safety Anxieties, Fears or Concerns: I want to walk in the hallway to exercise Per patient Goal: Absence of Hospital-Acquired Illness or Injury Outcome: Ongoing, Progressing Intervention: Identify and Manage Fall Risk Flowsheets (Taken 05/29/2025209) Safety Promotion/Fall Prevention: activity supervised Intervention: Prevent Skin Injury Flowsheets (Taken 05/29/2025209) Body Position: position maintained Skin Protection: incontinence pads utilized Intervention: Prevent and Manage VTE (Venous Thromboembolism) Risk Flowsheets (Taken 05/29/2025209) VTE Prevention/Management: SCDs (sequential compression devices) off Intervention: Prevent Infection Flowsheets (Taken 05/29/2025209) Infection Prevention: hand hygiene promoted Goal: Optimal Comfort and Wellbeing Outcome: Ongoing, Progressing Intervention: Monitor Pain and Promote Comfort Flowsheets (Taken 05/29/2025209) Pain Management Interventions: medication (see MAR) Intervention: Provide Person-Centered Care Flowsheets (Taken 05/29/2025209) Trust Relationship/Rapport: care explained choices provided emotional support provided empathic listening provided questions answered questions encouraged Problem: Sepsis/Septic Shock Goal: Optimal Coping Outcome: Ongoing, Progressing Intervention: Support Patient and Family Response Flowsheets (Taken 05/29/2025209) Supportive Measures: active listening utilized Family/Support System Care: presence promoted Goal: Absence of Bleeding Outcome: Ongoing, Progressing Intervention: Monitor and Manage Bleeding Flowsheets (Taken 05/29/2025209) Bleeding Precautions: blood pressure closely monitored Bleeding Management: other (see comments) Goal: Blood Glucose Level Within Target Range Outcome: Ongoing, Progressing Intervention: Optimize Glycemic Control Flowsheets (Taken 05/29/2025209) Hyperglycemia Management: blood glucose monitored Hypoglycemia Management: blood glucose monitored Goal: Absence of Infection Signs and Symptoms Outcome: Ongoing, Progressing Intervention: Initiate Sepsis Management Flowsheets (Taken 05/29/2025209) Stabilization Measures: verbal stimulation provided Infection Management: aseptic technique maintained Infection Prevention: hand hygiene promoted Isolation Precautions: precautions maintained Intervention: Promote Stabilization Flowsheets (Taken 05/29/2025209) Lung Protection Measures: other (see comments) Fluid/Electrolyte Management: fluids provided Fever Reduction/Comfort Measures: lightweight clothing Intervention: Promote Recovery Flowsheets (Taken 05/29/2025209) Activity Management: activity adjusted per tolerance Airway/Ventilation Management: airway patency maintained Sleep/Rest Enhancement: regular sleep/rest pattern promoted Goal: Optimal Nutrition Delivery Outcome: Ongoing, Progressing Intervention: Optimize Nutrition Delivery Flowsheets (Taken 05/29/2025209) Nutrition Support Management: weight trending reviewed Nutrition Interventions: frequent small meals provided Problem: Liver Failure Goal: Optimal Coping with Liver Failure Outcome: Ongoing, Progressing Intervention: Support and Optimize Psychosocial Response Flowsheets (Taken 05/29/2025209) Supportive Measures: active listening utilized Diversional Activities: television Family/Support System Care: presence promoted Goal: Absence of Bleeding Outcome: Ongoing, Progressing Intervention: Monitor and Manage Bleeding Flowsheets (Taken 05/29/2025209) Bleeding Precautions: blood pressure closely monitored Goal: Fluid and Electrolyte Balance Outcome: Ongoing, Progressing Intervention: Monitor and Manage Fluid and Electrolyte Balance Flowsheets (Taken 05/29/2025209) Fluid/Electrolyte Management: fluids provided Goal: Minimize and Manage Gastrointestinal Symptoms Outcome: Ongoing, Progressing Intervention: Monitor and Support Gastrointestinal Function Flowsheets (Taken 05/29/2025209) Perineal Care: education provided Fluid/Electrolyte Management: fluids provided Nausea/Vomiting Interventions: stimuli minimized Isolation Precautions: precautions maintained Oral Care: education provided Goal: Blood Glucose Level Within Target Range Outcome: Ongoing, Progressing Intervention: Optimize Glycemic Control Flowsheets (Taken 05/29/2025209) Hyperglycemia Management: blood glucose monitored Hypoglycemia Management: blood glucose monitored Goal: Hemodynamic Stability Outcome: Ongoing, Progressing Intervention: Optimize Blood Flow and Promote Renal Function Flowsheets (Taken 05/29/2025209) Stabilization Measures: verbal stimulation provided Goal: Absence of Infection Signs and Symptoms Outcome: Ongoing, Progressing Intervention: Prevent or Manage Infection Flowsheets (Taken 05/29/2025 021) Infection Management: aseptic technique maintained Fever Reduction/Comfort Measures: lightweight clothing Isolation Precautions: precautions maintained Goal: Optimize Neurologic Function Outcome: Ongoing, Progressing Intervention: Monitor and Optimize Neurologic Status Flowsheets (Taken 05/29/2025 021) Hepatic Encephalopathy Management: airway protection maintained Sensory Stimulation Regulation: television on Seizure Precautions: activity supervised Head of Bed (HOB) Positioning: HOB at 20-30 degrees Goal: Improved Oral Intake Outcome: Ongoing, Progressing Intervention: Promote and Optimize Nutrition Intake Flowsheets (Taken 05/29/2025 021) Nutrition Support Management: weight trending reviewed Oral Nutrition Promotion: rest periods promoted Nutrition Interventions: frequent small meals provided Goal: Optimal Pain Control, Comfort and Function Outcome: Ongoing, Progressing Intervention: Prevent or Manage Pain Flowsheets (Taken 05/29/2025209) Pain Management Interventions: medication (see MAR) Complementary Therapy: music therapy provided Spiritual Activities Assistance: music provided Sleep/Rest Enhancement: regular sleep/rest pattern promoted Problem: Fall Injury Risk Goal: Absence of Fall and Fall-Related Injury Outcome: Ongoing, Progressing Intervention: Identify and Manage Contributors Flowsheets (Taken 05/29/2025209) Medication Review/Management: medications reviewed Self-Care Promotion: independence encouraged Intervention: Promote Injury-Free Environment Flowsheets (Taken 05/29/2025209) Safety Promotion/Fall Prevention: activity supervised Problem: Skin Injury Risk Increased Goal: Skin Health and Integrity Outcome: Ongoing, Progressing Intervention: Optimize Skin Protection Flowsheets (Taken 05/29/2025209) Activity Management: activity adjusted per tolerance Pressure Reduction Techniques: frequent weight shift encouraged Pressure Reduction Devices: positioning supports utilized Skin Protection: incontinence pads utilized Head of Bed (HOB) Positioning: HOB at 20-30 degrees Intervention: Promote and Optimize Oral Intake Flowsheets (Taken 05/29/2025209) Oral Nutrition Promotion: rest periods promoted Nutrition Interventions: frequent small meals provided * Progress Notes - Riana Almaraz - 05/28/2025 3:27 PM EST Occupational Therapy Treatment Patient Name: Avis Pemberton Today's Date: 05/28/2025 OT Discharge Recommendations: Home with assistance Equipment Recommended: Rollator Subjective I'm feeling better, but my legs are swollen Participants in Care Family/Caregiver Present: 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 Precautions Left Lower Extremity Weight Bearing Status: Full weight Bearing Right Lower Extremity Weight Bearing Status: Full Weight Bearing Medical Precautions: Fall precautions Objective Pain Pt did not report any pain Delirium Screening RASS: Alert and calm Confusion Assessment Method-ICU (CAM-ICU/PCAM-ICU) Feature 3: Altered Level of Consciousness: Negative Cognition Cognition Overall Cognitive Status: Within Functional Limits Arousal/Alertness: Appropriate responses to stimuli Mood/Behavior: Alert Orientation Level: Oriented X4 Single Step Commands: Consistently Multi-Step Commands: Consistently Method of Communication: Verbal Safety Judgment: Good awareness of safety precautions Awareness of Errors: Good awareness of errors made Attention Span: Appears intact Bed Mobility Bed Mobility Exam: Supine to Sit Level of [place]: Stand-by assist Physical/Nonphysical Assist: Supervision, Verbal Cues, HOB elevated, Minimal cues Assistive Device: Bed rails Transfers Transfer Exam: Sit to stand Level of [place]: Stand-by assist Physical/Nonphysical Assist: Supervision, Verbal Cues, Minimal cues Assistive Device: Walker, rolling Transfer Exam: Stand to Sit Level of [place]: Stand-by assist Physical/Nonphysical Assist: Supervision, Verbal Cues, Minimal cues Assistive Device: Walker, rolling Toilet Transfer Level of [place]: Stand-by assist Physical/Nonphysical Assist: Supervision, Verbal Cues Type of Transfer: Ambulation, To toilet Assistive Device: Walker, rolling Balance Postural Appearance Posture: Within Functional Limits Static Sitting Balance Static Sitting-Balance Support: Right upper extremity support, Left upper extremity support, Feet supported Static Sitting-Level of Assistance: Supervision Dynamic Sitting Balance Dynamic Sitting-Balance Support: Right upper extremity support, Left upper extremity support, Feet supported Dynamic Sitting-Balance: Anterior/Posterior weight shifts, Lateral weight shifts Level of Assistance: Standby assisst Static Standing Balance Static Standing-Balance Support: Right upper extremity support, Left upper extremity support Static Standing-Level of Assistance: Standby assist Dynamic Standing Balance Dynamic Standing-Balance Support: Right upper extremity support, Left upper extremity support Dynamic Standing-Balance: Lateral weight shifts, Anterior/Posterior weight shifts Dynamic Standing Level of Assistance: Standby assist Self-Care Interventions Self Care/Home Management (ADLs) Time Entry: 26 Pt was seen for functional mobility in preparation for participation in ADL tasks and transfers. Ptis completing all transfers with SBA and verbal cues for safety. Pt is able to don her house slippers with supv and set-up. Feeding Feeding Level of Assistance: Independent Feeding Where Assessed: Chair Level Grooming Grooming Level of Assistance: Setup, SBA Grooming Where Assessed: Chair level UE Dressing UE Dressing Level of Assistance: Setup UE Dressing Where Assessed: Edge of bed Lower Extremity Dressing Shoe Level of Assistance: Close supervision LE Dressing Where Assessed: Edge of bed Toileting Toileting Level of Assistance: SBA Where Assessed: Toilet Assessment Pt is progressing towards all OT treatment goals. Pt continues to report increased fatigue with minimal exertion. Continue with OT plan of care for ADL retraining, discharge planning, functional mobility and generalized strengthening to assist pt with returning to her prior level of independence. OT Recommendations Discharge Destination: Home with assistance Discharge Equipment: Rollator Plan Continue with OT plan of care 2-5x/week x 2 weeks. Goals OT GOAL DETAILS Goal Established Date Time Frame Goal Status OT Goal 1: Pt will complete LB dressing with set-up and AAD. 05/25/25 2 weeks OT Goal 2: Pt will stand at sink x 10 minutes with SBA to complete grooming tasks with set-up. 05/25/25 2 weeks OT Goal 3: Pt will be independent with bilateral UE therapeutic exercises to increase safety and independence with ADLs and functional mobility. 05/25/25 2 weeks OT Goal 4: Pt will demonstrate understanding of energy conservation/work simplification techniques while completing ADL tasks. 05/25/25 Written by Riana Almaraz on 05/28/25 at 4:50 PM. 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 Precautions Left Lower Extremity Weight Bearing Status: Full weight Bearing Right Lower Extremity Weight Bearing Status: Full Weight Bearing Medical Precautions: Fall precautions Objective Pain Pt denied any pain throughout session, positioned for comfort at end of session Delirium Screening RASS: Alert and calm Confusion Assessment Method-ICU (CAM-ICU/PCAM-ICU) Feature 3: Altered Level of Consciousness: Negative Bed Mobility Bed Mobility Exam: Scooting/Bridging Level of [place]: Stand-by assist Physical/Nonphysical Assist: Supervision, Verbal Cues, Minimal cues Assistive Device: Bed rails Bed Mobility Exam: Supine to Sit Level of [place]: Stand-by assist Physical/Nonphysical Assist: Supervision, Verbal Cues, HOB elevated, Minimal cues Assistive Device: Bed rails Transfers Transfer Exam: Sit to stand Level of [place]: Stand-by assist Physical/Nonphysical Assist: Supervision, Verbal Cues, Minimal cues Assistive Device: Walker, rolling Transfer Exam: Stand to Sit Level of [place]: Stand-by assist Physical/Nonphysical Assist: Supervision, Verbal Cues, Minimal cues Assistive Device: Walker, rolling Ambulation Device: Rolling walker Apparatus: None Assistance: Standby assist Distance : 50ft Ambulation Comments: Reciprocal gait pattern w/ shuffling gait Balance Static Sitting Balance Static Sitting-Balance Support: Right upper extremity support, Left upper extremity support, Feet supported Static Sitting-Level of Assistance: Supervision Dynamic Sitting Balance Dynamic Sitting-Balance Support: Right upper extremity support, Left upper extremity support, Feet supported Dynamic Sitting-Balance: Anterior/Posterior weight shifts, Lateral weight shifts Level of Assistance: Standby assisst Static Standing Balance Static Standing-Balance Support: Right upper extremity support, Left upper extremity support Static Standing-Level of Assistance: Standby assist Dynamic Standing Balance Dynamic Standing-Balance Support: Right upper extremity support, Left upper extremity support Dynamic Standing-Balance: Lateral weight shifts, Anterior/Posterior weight shifts Dynamic Standing Level of Assistance: Standby assist Therapeutic Activity (25 minutes) Pt participated in SPPB this date, pt required rest breaks between tests. Pt required verbal cueingfor hand placement during sit <> stand transfers w/ RW. Pt also performed sitting and standing balance during ADLs throughout session to improve core strength and activity tolerance. Standardized Assessments Standardized Assessments Standardized Assessments: SPPB [facility] 6-Clicks Mobility Assessment Difficulty patient has turning over in bed (including adjusting bedclothes, sheets, and blankets)?:None Difficulty patient has sitting down on and standing up from a chair with arms (wheelchair, bedside commode, etc.)?: A little Difficulty patient has moving from lying on back to sitting on the side of the bed?: None How much help does the patient need moving to and from a bed to a chair (including a wheelchair)?: A little How much help does the patient need to walk in hospital room?: A little How much help does the patient need climbing 3-5 steps with a railing?: A little [facility] 6-Clicks Mobility Assessment Total : 20 Short Physical Performance Battery Short Physical Performance Battery: Performed Balance Score: 4: Full tandem for 10 sec Walk Score (4 Meter Walk): 2: If time is 6.2 - 8.70 sec Chair Stand Score: 1: If chair stand time is 16.7 sec or more Total Score: 7 Assessment Pt participated in PT treatment session for SPPB assessment, pt tolerated all activities well with no adverse events. Pt demonstrated improved mobility making good progress towards goals. Pt would continue to benefit from IP PT to further address strength, endurance, and gait training. PT Recommendations Discharge Destination: Home with assistance, Outpatient PT Discharge Equipment: Rollator Plan Continue w/ POC PT Goals PT GOAL DETAILS Goal Established Date Time Frame Goal Status PT Goal 1: Pt will demonstrate the ability to perform transfers with SBA and LRAD 05/25/25 2 weeks PT Goal 2: Pt will demonstrate the ability to amb 250ft with SBA and LRAD 05/25/25 2 weeks PT Goal 3: Pt will demonstrate the ability to navigate 4 stairs with CGA and unilateral handrail 05/25/25 2 weeks Written by Mariluz Borrego on 05/28/25 at 3:37 PM. * Progress Notes - Betzaida Bardales - 05/28/2025 1:31 PM EST Case Management Adult Progress Note Avis Pemberton 54 y.o. female CSN: [id number] Admission: 05/24/2025 3:09 AM Primary Problem: Sepsis, due to unspecified organism, unspecified whether acute organ dysfunction present Comments Per provider, patient is not medically ready for discharge. Plan to give IV bumex and monitor urineoutput. No current CM needs. CM will follow up. Betzaida Bardales * Progress Notes - Alison Burns MD - 05/28/2025 1:18 PM EST Subjective Pt continues to gain wt with increased leg swelling. Have some pain on right LE from increased swelling. No erythema, symmetric. She feels better today but does not think that she has been urinating enough. Explained plan to give iv bumex and monitor urine output. Review of Systems Complete review of system is negative except mentioned in subjective finding. Objective Vitals Temp: [36.3 ??C (97.3 ??F)-36.9 ??C (98.4 ??F)] 36.3 ??C (97.3 ??F) Heart Rate: [80-94] 94 BP: (84-117)/(52-77) 117/77 Physical Exam Physical Exam GENERAL:Alert and orientated, cooperative, in no acute distress. HEENT:Normal conjunctiva, no scleral icterus, mucous membranes- moist, no oral thrush, no sinus tenderness. CVS:Regular rhythm, normal rate, normal S1/S2, no murmur. RESPIRATORY: Normal breath sounds,clear on auscultation, no wheezing or rales. GASTROINTESTINAL:Normal BS. Abdomen-soft, non tender and distended. MUSCULOSKELETAL:Extremities symmetric,2+ bilateral pedal edema. INTEGUMENTARY:Warm, no rashes or cyanosis. NEUROLOGIC:Non-focal. Cranial nerves II-XII grossly intact. 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 year-old female who has past medical history of anxiety/depression, CHF, type 2 diabetes, hypertension, decompensated cirrhosis secondary to GOOD, hepatic encephalopathy who presents to [facility] on 05/24/2025 from [facility] for further management of sepsis. Was having diarrhea, fever, diffuse abdominal pain for about 3 days ago. Diarrhea associated with abdominal pain and fever Sepsis Lactic acidosis E coli bacteremia Diffuse colonic edema concerning for colitis vs hepatic colopathy -suspect GI source . Had dairrhea, fever, abdominalpain with OSH CT concerning for colitis. UA -negative. -was started iv zosyn GI panel -negative. C dif panel -pending. Pending copper level. -blood cultures at OSH -positive -cabrera sensitive -repat cultures from -NTD -will de-escalate to cipro - Improving diarrhea abdominal pain Anemia, megaloblastic Thrombocytopenia, chronic -hb trending down. No active bleeding. -continue to monitor with daily lab. - GI on board Decompensated cirrhosis Chronic hyponatremia MELD 23 -HE; no present on admission. Hold lactulose given diarrhea . Continue home rifaximin. Continue zinc -Ascites; mild ascites. No safe pocket for paracentesis . Resume home diuretics on 05/26. -EV: hold home meds given hypotension . Continue metoprolol -consulted liver tpx and GI . Appreciate recs. -having generalized anasarca: started home bumex 2 mg daily and spironolactone 100 mg twice daily. Continues to gain wt. Will increase bumex to IV 2 gm daily and will re dose in the afternoon if needed. - Continue cholestyramine daily for skin itchiness. - Need daily weights and accurate intake output monitoring - Transplant workup per transplant team DM -Home meds; Jardiance, insulin, GLP 1 -inpt regimen: ISS - Continue Lyrica Anxiety and depression - On BuSpar 10 mg daily and Pristiq GERD - Continue home PPI CHF - Per chart per chart review, echo on 10/31/2024 noted EF of 55-60% systolic pressure of pulmonary arteries is mildly increased with peak pressure to systolic by Doppler is 34.8 mm Hg Metoprolol 12.5 twice daily, spironolactone. Hold home Jardiance and lisinopril at this time Hyperlipidemia - Holding simvastatin in setting of worsening LFTs/transaminitis Restless leg - Takes Requip 1 mg q.i.d. at home - Currently on 1 mg three times a day Obesity - Body mass index is 36.82 kg/m??. - complicates all aspects of care Diet; soft diet. DVT prophylaxis: Lovenox Code status:full code Disposition:home Follow up:PCP, GI, transplant Medically Ready for Discharge:Anticipated in 2-4 Days Alison Burns MD [facility] Medicine. Prefer secure chat/ [phone] * Progress Notes - Jonathan Drummond APRN, DNP - 05/28/2025 11:59 AM EST Abdominal Transplant Surgery Consult Follow-Up Note CHIEF COMPLAINT: abdominal pain Consult Reason: pt undergoing outpatient eval for liver transplant. 24 Hour HPI: No acute events overnight. Patient awake and alert. Discussed that we will start transplant evaluation testing. She is to not have caffeine after 6 PM today and will be NPO after midnight in order to complete cardiac testing, she can resume previously ordered diet after the completion of testing. No complaints during assessment. Edited by: Jonathan Drummond APRN, DNP at 05/28/2025 1157 MELD 3.0: 18 at 05/28/2025 3:52 AM MELD-Na: 17 at 05/28/2025 3:52 AM Calculated from: Serum Creatinine: 0.9 mg/dL (Using min of 1 mg/dL) at 05/28/2025 3:52 AM Serum Sodium: 132 mmol/L at 05/28/2025 3:52 AM Total Bilirubin: 2 mg/dL at 05/28/2025 3:52 AM Serum Albumin: 2.6 g/dL at 05/28/2025 3:52 AM INR(ratio): 1.4 at 05/28/2025 3:52 AM Age at listing (hypothetical): 54 years Sex: Female at 05/28/2025 3:52 AM MEDICATIONS Medications Ordered Prior to Encounter[1] REVIEW OF SYSTEMS 14-point ROS negative except as above in HPI. PHYSICAL EXAM GENERAL: NAD adult female sitting in chair EYES: PERRL + scleral icterus HENT: No lesions in anterior nares; no lesions in oropharynx, head atraumatic and normocephalic NECK: Supple. No thyromegaly or adenopathy. No JVD noted. The trachea appears midline. RESP: Symmetric expansion; no retractions. Clear to auscultation bilaterally. CARD: RRR, without appreciable murmur, rubs, or gallop. Extremities: +1 BLE edema, no cyanosis or clubbing. Pulses palpable x4. GI: No organomegaly or masses. Nontender nondistended. Soft BS present x 4 quadrants. SKIN: No rash, sores, lesions or subcutaneous nodules. : voids NEURO: GCS 15 LABS Results from last 7 days Lab Units 05/28/25 0352 SODIUM mmol/L 132* POTASSIUM mmol/L 3.7 CHLORIDE mmol/L 103 CO2 mmol/L 22 BUN mg/dL 18 CREATININE mg/dL 0.90 CALCIUM mg/dL 8.2* BILIRUBIN TOTAL mg/dL 2.0* ALKALINE PHOSPHATASE U/L 162* ALT U/L 45* AST U/L 64* GLUCOSE mg/dL 122* Results from last 7 days Lab Units 05/28/25 0352 WBC 10*3/uL 4.20 HEMOGLOBIN g/dL 10.4* HEMATOCRIT % 30.2* PLATELETS 10*3/uL 59* Results from last 7 days Lab Units 05/27/25 0332 MAGNESIUM mg/dL 2.0 Lab Results Component Value Date CALCIUM 8.2 (L) 05/28/2025 PHOS 2.6 05/27/2025 MELD 3.0: 18 at 05/28/2025 3:52 AM MELD-Na: 17 at 05/28/2025 3:52 AM Calculated from: Serum Creatinine: 0.9 mg/dL (Using min of 1 mg/dL) at 05/28/2025 3:52 AM Serum Sodium: 132 mmol/L at 05/28/2025 3:52 AM Total Bilirubin: 2 mg/dL at 05/28/2025 3:52 AM Serum Albumin: 2.6 g/dL at 05/28/2025 3:52 AM INR(ratio): 1.4 at 05/28/2025 3:52 AM Age at listing (hypothetical): 54 years Sex: Female at 05/28/2025 3:52 AM ASSESSMENT/PLAN Ms. Avis Pemberton is a 54 YO F with decompensated [facility] cirrhosis who has been undergoing transplant evaluation, presented to the [facility] 05/[address] of EMS from and OSH with c/o abdominal pain. Leukocytosis Abdominal Pain - 05/24: WBC 14.2 from baseline of 6K - 05/24 Bcxr pending; UA negative - 05/25: WBC 10 - IR consulted for paracentesis, but no safe pocket of fluid seen on US for paracentesis. -: WBC 4.2; zosyn stopped and started on cipro for SBP ppx Decompensated [facility] cirrhosis Ascites HE - MELD 3.0: 18 per labs 05/28/25, ABO A+ - Please consult GAS/Liver as they follow [facility] for cirrhosis management. - The patient has started transplant evaluation testing; Pt remains not socially cleared pending f/up with Dr. Cervantes outpatient and needs to complete outpatient mammography and pap-smear. - Will re-assess on Monday 05/28 (if patient remains inpatient) to see if the patient is able to complete the remain evaluation testing. - Discharge per primary team - Transplant surgery will continue to follow Low Vitamin D - 18.9, will need ergocalciferol course post OLT. Morbid Obesity - BMI 36.8; complicates all aspects of patient's care - baseline weight noted from 04/03/25 Hepatology visit is 166 lbs. Patient 214 lbs as of 05/24 - patient's body habitus is not prohibitive to transplant at this time. Will continue to monitor. Edited by: Jonathan Drummond, [employer], DNP at 05/28/2025 1157 I spent 35 minutes chart review, counseling patient/family regarding diagnosis, prognosis, and treatment plan (including risks and benefits), and discussing case with care team members and formulating the plan. [1] No current facility-administered medications on file prior to encounter. Current Outpatient Medications on File Prior to Encounter Medication Sig Dispense Refill bumetanide (Bumex) 1 MG tablet Take 2 tablets by mouth daily. busPIRone (Buspar) 7.5 MG tablet Take 1 tablet by mouth 2 times a day. cyclobenzaprine (Flexeril) 10 MG tablet Take 1 tablet by mouth 3 times a day as needed for muscle spasms. desvenlafaxine (Pristiq) 50 MG 24 hr tablet Take 1 tablet by mouth daily. Do not crush, chew, or split. diclofenac (Voltaren) 1 % topical gel Place 2 g on the skin 4 times a day as needed (joint pain). ergocalciferol (Vitamin D-2) 1.25 MG (22494 UT) capsule Take 1 capsule by mouth 1 time per week. Take on Wednesday FeroSul 325 (65 Fe) MG tablet Take 1 tablet by mouth daily. insulin aspart (NovoLOG) 100 UNIT/ML injection vial Inject 5 Units under the skin 3 times a day before meals. If blood sugar is greater than 150 insulin glargine (Lantus) 100 UNIT/ML injection vial Inject 20 Units under the skin every morning. Jardiance 25 MG Take 1 tablet by mouth daily. lactulose (Chronulac) 10 GM/15ML oral solution Take 15 mL by mouth daily. lansoprazole (Prevacid) [address] capsule Take 1 capsule by mouth daily. lisinopril 2.5 MG tablet Take 1 tablet by mouth daily. metoprolol succinate XL (Toprol-XL) 50 MG 24 hr tablet Take 1 tablet by mouth every morning. Do notcrush or chew. oxyCODONE (Roxicodone) 5 MG immediate release tablet Take 1-1.5 tablets by mouth every 4 to 6 hoursas needed for severe pain. Ozempic, 1 MG/DOSE, 4 MG/3ML solution pen-injector Inject 1 mg under the skin 1 time per week. pregabalin (Lyrica) 25 MG capsule Take 1 capsule by mouth 2 times a day. rOPINIRole (Requip) 1 MG tablet Take 1 tablet by mouth 4 times a day. spironolactone (Aldactone) 100 MG tablet Take 2 tablets by mouth every morning. valACYclovir (Valtrex) 500 MG tablet Take 1 tablet by mouth every morning. diphenhydrAMINE (Benadryl) 50 MG tablet - 50 mg PO 1 hour prior to the CT scan on 05-25-25 1 tablet0 predniSONE (Deltasone) 50 MG tablet 50 mg PO, 13, 7, and [address] to the [address] Scan on 05-25-25. 3tablet 0 rifAXIMin (Xifaxan) 550 MG tablet Take 1 tablet by mouth 2 times a day. zinc sulfate (Zincate) 220 (50 Zn) MG capsule Take 1 capsule by mouth 2 times a day. 240 capsule 2 [DISCONTINUED] baclofen (Lioresal) 10 MG tablet Take 1 tablet by mouth nightly. (Patient not taking: Reported on 05/18/2025) 30 tablet 0 [DISCONTINUED] desvenlafaxine (Pristiq) 100 MG 24 hr tablet Take 50 mg by mouth daily. [DISCONTINUED] hydrOXYzine pamoate (Vistaril) 25 MG capsule Take 1 capsule by mouth 3 times a day as needed for itching. [DISCONTINUED] insulin glargine (Lantus SoloStar) 100 UNIT/ML injection pen Inject 20 Units under the skin every morning. [DISCONTINUED] lisinopril 2.5 MG tablet Take 1 tablet by mouth daily. [DISCONTINUED] metoprolol succinate XL (Toprol-XL) 50 MG 24 hr tablet Take 1 tablet by mouth daily. [DISCONTINUED] NovoLOG FLEXPEN 100 UNIT/ML injection pen Inject 5 Units under the skin 3 times a day as needed for high blood sugar (for BG > 150). [DISCONTINUED] ondansetron ODT (Zofran-ODT) 8 MG disintegrating tablet Dissolve 1 tablet on the tongue every 8 hours as needed for nausea or vomiting. [DISCONTINUED] potassium chloride CR (Klor-Con M20) 20 MEQ ER tablet Take 1 tablet by mouth 2 timesa day. [DISCONTINUED] promethazine (Phenergan) 25 MG tablet Take 1 tablet by mouth 3 times a day as neededfor nausea or vomiting (if not helped by ondansetron). [DISCONTINUED] Rimegepant Sulfate (Nurtec) 75 MG tablet dispersible Dissolve 1 tablet on the tonguedaily as needed (migraine headache). [DISCONTINUED] simvastatin (Zocor) 20 MG tablet Take 1 tablet by mouth nightly. * Progress Notes - Agustina Talamantes DO - 05/28/2025 8:13 AM EST GASTROENTEROLOGY DAILY PROGRESS NOTE SUBJECTIVE Interval History No acute events overnight. Feels well overall and feels better with IV diuretics. Ongoing transplant evaluation. Review of Systems Negative except that which is mentioned in the HPI. OBJECTIVE Physical Exam Blood pressure 96/64, pulse 90, temperature 36.7 ??C (98.1 ??F), resp. rate 18, height 1.626 m (5' 4 ), weight 93.5 kg (206 lb 3.2 oz), SpO2 95%. GEN: awake, alert, appears chronically ill HEENT: non-interic sclera, atraumatic, nose patent EYES: EOMI CV: well perfused RESP: no increased WOB, symmetric chest rise GI: soft, non-tender, non-distended, neg fluid wave MSK: moves limbs spontaneously NEURO: alert and orientated, neg asterixis SKIN: non-jaundice, warm PSYCH: appropriate mood and affect Intake / Output Intake/Output Summary (Last 24 hours) at 05/28/2025 0814 Last data filed at 05/27/2025 1800 Gross per 24 hour Intake 1100 ml Output 1000 ml Net 100 ml Current Medications Current Scheduled Medications[1] Current Continuous Medications[2] Current PRN Medications[3] Results / Imaging All relevant labs and imaging over the last 24 hours were personally reviewed. Procedures OSH EGD performed 12/15/[address] Grant showed the larynx was normal. A non-obstructing Schatzki ring was found at the gastroesophageal junction. A 2 cm hiatal hernia was present. A medium amount of food (residue) was found in the gastric body. Mild gastric antral vascular ectasia without bleeding was present in the gastric antrum. Coagulation for bleeding prevention using argon plasma was successful.The examined duodenum was normal. OSH Colonoscopy performed 07/31/[address] Grant showed digital rectal examinations were normal. 2 sessile polyps were found in the ascending colon. Resection and retrieval were complete. Multiple small mouth diverticula were found in the sigmoid colon. Nonbleeding internal hemorrhoids were found during retroflexion. Recommendation to repeat in 5 years for surveillance ASSESSMENT/PLAN Avis Pemberton is a 54 y.o. female with on whom we were consulted for management of cirrhosis. # E coli Bacteremia Presentation with abdominal pain, diarrhea, fever and leukocytosis. Patient received broad-spectrumIV antibiotics with improvement. Outside hospital CT imaging notable for colitis source of infection a GI PCR is negative and C.diff not sent due to formed stool. 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 JEANNIE+. AMA -/ASMA-. A1AT normal (MZ). Viral hepatitis Ascites: Present. On Aldactone and Bumex Hepatic encephalopathy: Prior history. 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 SBP: No history HCC: no masses on recent CT. AFP normal. Plan: Ascites Sodium restriction <2g/day Continue diuresis with aldactone 100 mg BID and bumex 2mg qd Monitor for electrolyte disturbances, renal function Hepatic Encephalopathy Continue lactulose given diarrhea resolved Continue rifaximin Nutritional support: 1.25 g/kg protein/day, nighttime snack Varices/Variceal Bleeding No prior hx of variceal bleeding. Presumed Spontaneous Bacterial Peritonitis No prior hx of SBP. S/p tx with ceftriaxone, currently on zosyn for e coli bacteremia Transplant Evaluation Undergoing liver transplant evaluation Discussed with Dr. Dominguez Thank you for the opportunity to participate in this patient's care! The inpatient GI consult team will sign off at this time. Should this patient require reevaluation by our team, please don't hesitate to reconsult us. Agustina Talamantes DO Gastroenterology and Hepatology, PGY-4 Healthcare Pager: [phone] [1] bumetanide (Bumex) injection, 2 mg, Intravenous, Daily busPIRone, 7.5 mg, Oral, BID cholestyramine light, 4 g, Oral, Daily desvenlafaxine, 50 mg, Oral, Daily enoxaparin, 40 mg, Subcutaneous, Daily insulin lispro, 0-5 Units, Subcutaneous, TID with meals insulin lispro, 0-3 Units, Subcutaneous, Twice at night metoprolol tartrate, 12.5 mg, Oral, BID pantoprazole, 40 mg, Oral, Daily piperacillin-tazobactam, 3.375 g, Intravenous, q6h pregabalin, 25 mg, Oral, Nightly rifAXIMin, 550 mg, Oral, BID rOPINIRole, 1 mg, Oral, TID sodium chloride, 10 mL, Intravenous, q12h spironolactone, 100 mg, Oral, BID valACYclovir, 500 mg, Oral, q AM zinc sulfate, 220 mg, Oral, BID [2] [3] PRN medications: glucose OR dextrose 10 % OR dextrose 10 % OR glucagon (human recombinant), hydrOXYzine pamoate, ondansetron ODT OR ondansetron OR ondansetron, oxyCODONE, Insert peripheral IV AND Saline lock IV AND sodium chloride AND sodium chloride Cosigned by Toribio Gallagher MD at 05/29/2025 12:45 PM EST Associated attestation - Toribio Gallagher MD - 05/29/2025 12:45 PM EST I saw and evaluated the patient with the resident/fellow. I discussed the case with the resident/fellow and agree with the findings and plan as documented. * Care Plan - Carlos Enrique Cobb RN - 05/28/2025 2:48 AM EST Problem: Adult Inpatient Plan of Care Goal: Plan of Care Review Outcome: Ongoing, Progressing Flowsheets (Taken 05/28/2025 0245) Progress: improving Outcome Evaluation: Patient will be able to participate in the plan of care Plan of Care Reviewed With: patient Goal: Patient-Specific Goal (Individualized) Outcome: Ongoing, Progressing Flowsheets (Taken 05/27/20251999) Patient/Family-Specific Goals (Include Timeframe): Patient will be free from fall during the entireshift Individualized Care Needs: safety Anxieties, Fears or Concerns: I want to walk in the hallway to exercise Per patient Goal: Absence of Hospital-Acquired Illness or Injury Outcome: Ongoing, Progressing Intervention: Identify and Manage Fall Risk Flowsheets (Taken 05/28/2025244) Safety Promotion/Fall Prevention: activity supervised nonskid shoes/slippers when out of bed Intervention: Prevent Skin Injury Flowsheets (Taken 05/28/2025 024) Body Position: weight shifting Skin Protection: incontinence pads utilized Intervention: Prevent and Manage VTE (Venous Thromboembolism) Risk Flowsheets (Taken 05/28/2025 0000) VTE Prevention/Management: SCDs (sequential compression devices) off Intervention: Prevent Infection Flowsheets (Taken 05/28/2025 024) Infection Prevention: hand hygiene promoted Goal: Optimal Comfort and Wellbeing Outcome: Ongoing, Progressing Intervention: Monitor Pain and Promote Comfort Flowsheets (Taken 05/28/2025244) Pain Management Interventions: medication (see MAR) Intervention: Provide Person-Centered Care Flowsheets (Taken 05/28/2025244) Trust Relationship/Rapport: care explained choices provided emotional support provided empathic listening provided questions answered questions encouraged reassurance provided Problem: Sepsis/Septic Shock Goal: Optimal Coping Outcome: Ongoing, Progressing Intervention: Support Patient and Family Response Flowsheets (Taken 05/28/2025244) Supportive Measures: active listening utilized Family/Support System Care: presence promoted Goal: Absence of Bleeding Outcome: Ongoing, Progressing Intervention: Monitor and Manage Bleeding Flowsheets (Taken 05/28/2025244) Bleeding Precautions: blood pressure closely monitored Bleeding Management: other (see comments) Goal: Blood Glucose Level Within Target Range Outcome: Ongoing, Progressing Intervention: Optimize Glycemic Control Flowsheets (Taken 05/28/2025244) Hyperglycemia Management: blood glucose monitored Hypoglycemia Management: blood glucose monitored Goal: Absence of Infection Signs and Symptoms Outcome: Ongoing, Progressing Intervention: Initiate Sepsis Management Flowsheets (Taken 05/28/2025244) Stabilization Measures: verbal stimulation provided Infection Management: aseptic technique maintained Infection Prevention: hand hygiene promoted Isolation Precautions: precautions discontinued Intervention: Promote Stabilization Flowsheets (Taken 05/28/2025244) Lung Protection Measures: other (see comments) Fluid/Electrolyte Management: fluids provided Fever Reduction/Comfort Measures: lightweight clothing Intervention: Promote Recovery Flowsheets (Taken 05/28/2025244) Activity Management: activity adjusted per tolerance Airway/Ventilation Management: airway patency maintained Sleep/Rest Enhancement: consistent schedule promoted Goal: Optimal Nutrition Delivery Outcome: Ongoing, Progressing Intervention: Optimize Nutrition Delivery Flowsheets (Taken 05/28/2025244) Nutrition Support Management: weight trending reviewed Nutrition Interventions: frequent small meals provided Problem: Liver Failure Goal: Optimal Coping with Liver Failure Outcome: Ongoing, Progressing Intervention: Support and Optimize Psychosocial Response Flowsheets (Taken 05/28/2025244) Supportive Measures: active listening utilized Diversional Activities: television Family/Support System Care: presence promoted Goal: Absence of Bleeding Outcome: Ongoing, Progressing Intervention: Monitor and Manage Bleeding Flowsheets (Taken 05/28/2025 024) Bleeding Precautions: blood pressure closely monitored Goal: Fluid and Electrolyte Balance Outcome: Ongoing, Progressing Intervention: Monitor and Manage Fluid and Electrolyte Balance Flowsheets (Taken 05/28/2025244) Fluid/Electrolyte Management: fluids provided Goal: Minimize and Manage Gastrointestinal Symptoms Outcome: Ongoing, Progressing Intervention: Monitor and Support Gastrointestinal Function Flowsheets (Taken 05/28/2025244) Fluid/Electrolyte Management: fluids provided Nausea/Vomiting Interventions: stimuli minimized Isolation Precautions: precautions discontinued Oral Care: education provided Goal: Blood Glucose Level Within Target Range Outcome: Ongoing, Progressing Intervention: Optimize Glycemic Control Flowsheets (Taken 05/28/2025244) Hyperglycemia Management: blood glucose monitored Hypoglycemia Management: blood glucose monitored Goal: Hemodynamic Stability Outcome: Ongoing, Progressing Intervention: Optimize Blood Flow and Promote Renal Function Flowsheets (Taken 05/28/2025244) Stabilization Measures: verbal stimulation provided Goal: Absence of Infection Signs and Symptoms Outcome: Ongoing, Progressing Intervention: Prevent or Manage Infection Flowsheets (Taken 05/28/2025244) Infection Management: aseptic technique maintained Fever Reduction/Comfort Measures: lightweight clothing Isolation Precautions: precautions discontinued Goal: Optimize Neurologic Function Outcome: Ongoing, Progressing Intervention: Monitor and Optimize Neurologic Status Flowsheets (Taken 05/28/2025244) Hepatic Encephalopathy Management: airway protection maintained Sensory Stimulation Regulation: tactile stimulation provided television on Seizure Precautions: activity supervised Head of Bed (HOB) Positioning: HOB at 20 degrees Goal: Improved Oral Intake Outcome: Ongoing, Progressing Intervention: Promote and Optimize Nutrition Intake Flowsheets (Taken 05/28/2025244) Nutrition Support Management: weight trending reviewed Oral Nutrition Promotion: rest periods promoted Nutrition Interventions: frequent small meals provided Goal: Optimal Pain Control, Comfort and Function Outcome: Ongoing, Progressing Intervention: Prevent or Manage Pain Flowsheets (Taken 05/28/2025244) Pain Management Interventions: medication (see MAR) Complementary Therapy: music therapy provided Spiritual Activities Assistance: affirmation provided hope instilled Sleep/Rest Enhancement: consistent schedule promoted Problem: Fall Injury Risk Goal: Absence of Fall and Fall-Related Injury Outcome: Ongoing, Progressing Intervention: Identify and Manage Contributors Flowsheets (Taken 05/28/2025244) Medication Review/Management: medications reviewed Self-Care Promotion: independence encouraged Intervention: Promote Injury-Free Environment Flowsheets (Taken 05/28/2025244) Safety Promotion/Fall Prevention: activity supervised nonskid shoes/slippers when out of bed Problem: Skin Injury Risk Increased Goal: Skin Health and Integrity Outcome: Ongoing, Progressing Intervention: Optimize Skin Protection Flowsheets (Taken 05/28/2025244) Activity Management: activity adjusted per tolerance Pressure Reduction Techniques: frequent weight shift encouraged Pressure Reduction Devices: alternating pressure pump (HARRY) Skin Protection: incontinence pads utilized Head of Bed (HOB) Positioning: HOB at 20 degrees * Consults - Neftaly Vyas - 05/27/2025 5:17 PM EST Pastoral Care Note Referral From: Nurse Pastoral Care Provided For: Patient Patient Profile: Consult Reasons: Emotional support, Spiritual support Spiritual Assessment: Support Systems/ Spiritual Resources: [place], Family Interventions: Interventions Provided: Consulted with care team, Life review, Spiritual support, Supportive Listening, Emotional support Pastoral Care Outcomes: Patient Outcomes: Appreciative of [employer] Support [employer] met with patient for intial visit. Patient gave a life review of fallon and family. Patienttaked about her medical concerns. * Progress Notes - Alison Burns MD - 05/27/2025 1:41 PM EST Subjective Pt said she is feeling not well. Not able to sleep last night and was confused. Had 4 BM yesterday.Continues to gain weight. Said cholestyramine helps with itchiness. Recommended to avoid taking Imodium and oxycodone. Abdominal pain is improved. Recommended to limit fluid intake today. Review of Systems Complete review of system is negative except mentioned in subjective finding. Objective Vitals Temp: [36.7 ??C (98.1 ??F)-36.9 ??C (98.4 ??F)] 36.8 ??C (98.2 ??F) Heart Rate: [84-92] 84 BP: (85-97)/(54-63) 97/63 Physical Exam Physical Exam GENERAL:Alert and orientated, cooperative, in no acute distress. HEENT:Normal conjunctiva, no scleral icterus, mucous membranes- moist, no oral thrush, no sinus tenderness. CVS:Regular rhythm, normal rate, normal S1/S2, no murmur. RESPIRATORY: Normal breath sounds,clear on auscultation, no wheezing or rales. GASTROINTESTINAL:Normal BS. Abdomen-soft, non tender and distended. MUSCULOSKELETAL:Extremities symmetric,1+ bilateral pedal edema. INTEGUMENTARY:Warm, no rashes or cyanosis. NEUROLOGIC:Non-focal. Cranial nerves II-XII grossly intact. PSYCHIATRIC: Appropriate affect Assessment & Plan Sepsis, due to unspecified organism, unspecified whether acute organ dysfunction present (Resolved:05/27/2025) Anxiety and depression Diabetes mellitus without complication 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 Transaminitis Coagulopathy Avis Pemberton is a 54 y.o. year-old female who has past medical history of anxiety/depression, CHF, type 2 diabetes, hypertension, decompensated cirrhosis secondary to GOOD, hepatic encephalopathy who presents to [facility] on 05/24/2025 from [facility] for further management of sepsis. Was having diarrhea, fever, diffuse abdominal pain for about 3 days ago. Diarrhea associated with abdominal pain and fever Sepsis Lactic acidosis E coli bacteremia Diffuse colonic edema concerning for colitis vs hepatic colopathy -suspect GI source . Had dairrhea, fever, abdominalpain with OSH CT concerning for colitis. UA -negative. -continue zosyn , day 4 GI panel -negative. C dif panel -pending. Pending copper level. -blood cultures at OSH -positive -repat cultures from -[facility] -will fU culture result from OSH . - Improving diarrhea abdominal pain Anemia, megaloblastic Thrombocytopenia, chronic -hb trending down. No active bleeding. -continue to monitor with daily lab. - GI on board Decompensated cirrhosis Chronic hyponatremia MELD 23 -HE; no present on admission. Hold lactulose given diarrhea . Continue home rifaximin. Continue zinc -Ascites; mild ascites. No safe pocket for paracentesis . Resume home diuretics on 05/26. -EV: hold home meds given hypotension . Continue metoprolol -consulted liver tpx and GI . Appreciate recs. -having generalized anasarca: will start bumex 2 mg daily and spironolactone 100 mg twice daily - Continue cholestyramine daily for skin itchiness. - Need daily weights and accurate intake output monitoring - Transplant workup per transplant team DM -Home meds; Jardiance, insulin, GLP 1 -inpt regimen: ISS - Continue Lyrica Anxiety and depression - On BuSpar 10 mg daily and resume home Pristiq GERD - Continue home PPI CHF - Per chart per chart review, echo on 10/31/2024 noted EF of 55-60% systolic pressure of pulmonary arteries is mildly increased with peak pressure to systolic by Doppler is 34.8 mm Hg Metoprolol 12.5 twice daily, spironolactone. Hold home Jardiance and lisinopril at this time Hyperlipidemia - Holding simvastatin in setting of worsening LFTs/transaminitis Restless leg - Takes Requip 1 mg q.i.d. at home - Currently on 1 mg three times a day Obesity - Body mass index is 36.82 kg/m??. - complicates all aspects of care Diet; soft diet. DVT prophylaxis: Lovenox Code status:full code Disposition:home Follow up:PCP, GI, transplant Medically Ready for Discharge:Anticipated in 2-4 Days Alison Burns MD [facility]. Prefer secure chat/ [phone] * Care Plan - Nabeel Lancaster RN - 05/27/2025 9:15 AM EST Problem: Adult Inpatient Plan of Care Goal: Plan of Care Review Outcome: Ongoing, Progressing Flowsheets (Taken 05/27/2025 0913) Progress: no change Outcome Evaluation: pt will remain fall free this shift Plan of Care Reviewed With: patient Goal: Patient-Specific Goal (Individualized) Outcome: Ongoing, Progressing Goal: Absence of Hospital-Acquired Illness or Injury Outcome: Ongoing, Progressing Intervention: Identify and Manage Fall Risk Flowsheets (Taken 05/27/2025799) Safety Promotion/Fall Prevention: fall prevention program maintained clutter-free environment maintained assistive device/personal items within reach safety round/check completed nonskid shoes/slippers when out of bed Intervention: Prevent Skin Injury Flowsheets (Taken 05/27/2025799) Body Position: sitting up in bed Skin Protection: transparent dressing maintained Intervention: Prevent and Manage VTE (Venous Thromboembolism) Risk Flowsheets (Taken 05/27/2025799) VTE Prevention/Management: medication Intervention: Prevent Infection Flowsheets (Taken 05/27/2025799) Infection Prevention: rest/sleep promoted Goal: Optimal Comfort and Wellbeing Outcome: Ongoing, Progressing Intervention: Monitor Pain and Promote Comfort Flowsheets (Taken 05/27/2025799) Pain Management Interventions: pillow support provided Intervention: Provide Person-Centered Care Flowsheets (Taken 05/27/2025799) Trust Relationship/Rapport: choices provided care explained Problem: Sepsis/Septic Shock Goal: Optimal Coping Outcome: Ongoing, Progressing Intervention: Support Patient and Family Response Flowsheets (Taken 05/27/2025799) Supportive Measures: active listening utilized Family/Support System Care: self-care encouraged Goal: Absence of Bleeding Outcome: Ongoing, Progressing Goal: Blood Glucose Level Within Target Range Outcome: Ongoing, Progressing Intervention: Optimize Glycemic Control Flowsheets (Taken 05/27/2025799) Hyperglycemia Management: blood glucose monitored Hypoglycemia Management: blood glucose monitored Goal: Absence of Infection Signs and Symptoms Outcome: Ongoing, Progressing Intervention: Initiate Sepsis Management Flowsheets (Taken 05/27/2025799) Stabilization Measures: legs elevated Infection Management: aseptic technique maintained Infection Prevention: rest/sleep promoted Isolation Precautions: contact precautions maintained Intervention: Promote Stabilization Flowsheets (Taken 05/27/2025799) Fluid/Electrolyte Management: fluids provided Fever Reduction/Comfort Measures: lightweight bedding Intervention: Promote Recovery Flowsheets (Taken 05/27/2025799) Activity Management: activity encouraged Airway/Ventilation Management: position adjusted Sleep/Rest Enhancement: consistent schedule promoted Goal: Optimal Nutrition Delivery Outcome: Ongoing, Progressing Intervention: Optimize Nutrition Delivery Flowsheets (Taken 05/27/2025799) Nutrition Interventions: food preferences provided Problem: Liver Failure Goal: Optimal Coping with Liver Failure Outcome: Ongoing, Progressing Intervention: Support and Optimize Psychosocial Response Flowsheets (Taken 05/27/2025799) Supportive Measures: active listening utilized Diversional Activities: television Family/Support System Care: self-care encouraged Goal: Absence of Bleeding Outcome: Ongoing, Progressing Goal: Fluid and Electrolyte Balance Outcome: Ongoing, Progressing Intervention: Monitor and Manage Fluid and Electrolyte Balance Flowsheets (Taken 05/27/2025799) Fluid/Electrolyte Management: fluids provided Goal: Minimize and Manage Gastrointestinal Symptoms Outcome: Ongoing, Progressing Intervention: Monitor and Support Gastrointestinal Function Flowsheets (Taken 05/27/2025799) Fluid/Electrolyte Management: fluids provided Nausea/Vomiting Interventions: stimuli minimized Isolation Precautions: contact precautions maintained Goal: Blood Glucose Level Within Target Range Outcome: Ongoing, Progressing Intervention: Optimize Glycemic Control Flowsheets (Taken 05/27/2025799) Hyperglycemia Management: blood glucose monitored Hypoglycemia Management: blood glucose monitored Goal: Hemodynamic Stability Outcome: Ongoing, Progressing Intervention: Optimize Blood Flow and Promote Renal Function Flowsheets (Taken 05/27/2025799) Stabilization Measures: legs elevated Goal: Absence of Infection Signs and Symptoms Outcome: Ongoing, Progressing Intervention: Prevent or Manage Infection Flowsheets (Taken 05/27/2025799) Infection Management: aseptic technique maintained Fever Reduction/Comfort Measures: lightweight bedding Isolation Precautions: contact precautions maintained Goal: Optimize Neurologic Function Outcome: Ongoing, Progressing Intervention: Monitor and Optimize Neurologic Status Flowsheets (Taken 05/27/2025799) Sensory Stimulation Regulation: care clustered Seizure Precautions: activity supervised clutter-free environment maintained Head of Bed (HOB) Positioning: HOB elevated Goal: Improved Oral Intake Outcome: Ongoing, Progressing Intervention: Promote and Optimize Nutrition Intake Flowsheets (Taken 05/27/2025799) Nutrition Interventions: food preferences provided Goal: Optimal Pain Control, Comfort and Function Outcome: Ongoing, Progressing Intervention: Prevent or Manage Pain Flowsheets (Taken 05/27/2025799) Pain Management Interventions: pillow support provided Sleep/Rest Enhancement: consistent schedule promoted Problem: Fall Injury Risk Goal: Absence of Fall and Fall-Related Injury Outcome: Ongoing, Progressing Intervention: Identify and Manage Contributors Flowsheets (Taken 05/27/2025799) Medication Review/Management: medications reviewed Self-Care Promotion: BADL personal objects within reach independence encouraged Intervention: Promote Injury-Free Environment Flowsheets (Taken 05/27/2025 08) Safety Promotion/Fall Prevention: fall prevention program maintained clutter-free environment maintained assistive device/personal items within reach safety round/check completed nonskid shoes/slippers when out of bed Problem: Skin Injury Risk Increased Goal: Skin Health and Integrity Outcome: Ongoing, Progressing Intervention: Optimize Skin Protection Flowsheets (Taken 05/27/2025799) Activity Management: activity encouraged Pressure Reduction Techniques: frequent weight shift encouraged heels elevated off bed Pressure Reduction Devices: pressure-redistributing mattress utilized positioning supports utilized Skin Protection: transparent dressing maintained Head of Bed (HOB) Positioning: HOB elevated Intervention: Promote and Optimize Oral Intake Flowsheets (Taken 05/27/2025799) Nutrition Interventions: food preferences provided * Care Plan - Martin Lipscomb RN - 05/26/2025 8:00 PM EST Problem: Adult Inpatient Plan of Care Goal: Plan of Care Review Outcome: Ongoing, Progressing Flowsheets (Taken 05/26/20251999) Progress: no change Outcome Evaluation: Patien will remain free from falls/harm throughout this shift Plan of Care Reviewed With: patient Goal: Patient-Specific Goal (Individualized) Outcome: Ongoing, Progressing Goal: Absence of Hospital-Acquired Illness or Injury Outcome: Ongoing, Progressing Intervention: Prevent Skin Injury Flowsheets (Taken 05/26/20251999) Body Position: weight shifting Skin Protection: protective footwear used Intervention: Prevent and Manage VTE (Venous Thromboembolism) Risk Flowsheets (Taken 05/26/20251999) VTE Prevention/Management: education provided Intervention: Prevent Infection Flowsheets (Taken 05/26/20251999) Infection Prevention: personal protective equipment utilized rest/sleep promoted hand hygiene promoted Goal: Optimal Comfort and Wellbeing Outcome: Ongoing, Progressing Intervention: Monitor Pain and Promote Comfort Flowsheets (Taken 05/26/20251999) Pain Management Interventions: rest pillow support provided Intervention: Provide Person-Centered Care Flowsheets (Taken 05/26/20251999) Trust Relationship/Rapport: care explained choices provided emotional support provided empathic listening provided questions answered thoughts/feelings acknowledged reassurance provided questions encouraged Problem: Sepsis/Septic Shock Goal: Optimal Coping Outcome: Ongoing, Progressing Intervention: Support Patient and Family Response Flowsheets (Taken 05/26/20251999) Supportive Measures: active listening utilized decision-making supported Family/Support System Care: self-care encouraged Goal: Absence of Bleeding Outcome: Ongoing, Progressing Intervention: Monitor and Manage Bleeding Flowsheets (Taken 05/26/20251999) Bleeding Precautions: blood pressure closely monitored Bleeding Management: other (see comments) Goal: Blood Glucose Level Within Target Range Outcome: Ongoing, Progressing Intervention: Optimize Glycemic Control Flowsheets (Taken 05/26/20251999) Hyperglycemia Management: blood glucose monitored Hypoglycemia Management: blood glucose monitored Goal: Absence of Infection Signs and Symptoms Outcome: Ongoing, Progressing Intervention: Initiate Sepsis Management Flowsheets (Taken 05/26/20251999) Stabilization Measures: legs elevated Infection Management: aseptic technique maintained Infection Prevention: personal protective equipment utilized rest/sleep promoted hand hygiene promoted Intervention: Promote Stabilization Flowsheets (Taken 05/26/20251999) Fluid/Electrolyte Management: other (see comments) Fever Reduction/Comfort Measures: lightweight bedding Intervention: Promote Recovery Flowsheets (Taken 05/26/20251999) Activity Management: ambulated in dye Airway/Ventilation Management: position adjusted Sleep/Rest Enhancement: awakenings minimized Goal: Optimal Nutrition Delivery Outcome: Ongoing, Progressing Intervention: Optimize Nutrition Delivery Flowsheets (Taken 05/26/20251999) Nutrition Support Management: weight trending reviewed Nutrition Interventions: supplemental foods provided Problem: Liver Failure Goal: Optimal Coping with Liver Failure Outcome: Ongoing, Progressing Intervention: Support and Optimize Psychosocial Response Flowsheets (Taken 05/26/20251999) Supportive Measures: active listening utilized decision-making supported Family/Support System Care: self-care encouraged Goal: Absence of Bleeding Outcome: Ongoing, Progressing Intervention: Monitor and Manage Bleeding Flowsheets (Taken 05/26/20251999) Bleeding Precautions: blood pressure closely monitored Goal: Fluid and Electrolyte Balance Outcome: Ongoing, Progressing Intervention: Monitor and Manage Fluid and Electrolyte Balance Flowsheets (Taken 05/26/20251999) Fluid/Electrolyte Management: other (see comments) Goal: Minimize and Manage Gastrointestinal Symptoms Outcome: Ongoing, Progressing Intervention: Monitor and Support Gastrointestinal Function Flowsheets (Taken 05/26/20251999) Perineal Care: education provided Fluid/Electrolyte Management: other (see comments) Oral Care: education provided Goal: Blood Glucose Level Within Target Range Outcome: Ongoing, Progressing Intervention: Optimize Glycemic Control Flowsheets (Taken 05/26/20251999) Hyperglycemia Management: blood glucose monitored Hypoglycemia Management: blood glucose monitored Goal: Hemodynamic Stability Outcome: Ongoing, Progressing Intervention: Optimize Blood Flow and Promote Renal Function Flowsheets (Taken 05/26/20251999) Stabilization Measures: legs elevated Goal: Absence of Infection Signs and Symptoms Outcome: Ongoing, Progressing Intervention: Prevent or Manage Infection Flowsheets (Taken 05/26/20251999) Infection Management: aseptic technique maintained Fever Reduction/Comfort Measures: lightweight bedding Goal: Optimize Neurologic Function Outcome: Ongoing, Progressing Intervention: Monitor and Optimize Neurologic Status Flowsheets (Taken 05/26/20251999) Sensory Stimulation Regulation: quiet environment promoted care clustered lighting decreased Seizure Precautions: activity supervised clutter-free environment maintained Goal: Improved Oral Intake Outcome: Ongoing, Progressing Intervention: Promote and Optimize Nutrition Intake Flowsheets (Taken 05/26/20251999) Nutrition Support Management: weight trending reviewed Nutrition Interventions: supplemental foods provided Goal: Optimal Pain Control, Comfort and Function Outcome: Ongoing, Progressing Intervention: Prevent or Manage Pain Flowsheets (Taken 05/26/20251999) Pain Management Interventions: rest pillow support provided Spiritual Activities Assistance: hope instilled Sleep/Rest Enhancement: awakenings minimized Problem: Fall Injury Risk Goal: Absence of Fall and Fall-Related Injury Outcome: Ongoing, Progressing Intervention: Identify and Manage Contributors Flowsheets (Taken 05/26/20251999) Medication Review/Management: medications reviewed Self-Care Promotion: independence encouraged BADL personal objects within reach Problem: Skin Injury Risk Increased Goal: Skin Health and Integrity Outcome: Ongoing, Progressing Intervention: Optimize Skin Protection Flowsheets (Taken 05/26/20251999) Activity Management: ambulated in dye Pressure Reduction Techniques: frequent weight shift encouraged Skin Protection: protective footwear used Intervention: Promote and Optimize Oral Intake Flowsheets (Taken 05/26/20251999) Nutrition Interventions: supplemental foods provided * Care Plan - Ernie Warner RN - 05/26/2025 4:51 PM EST Problem: Adult Inpatient Plan of Care Goal: Plan of Care Review Outcome: Ongoing, Progressing Flowsheets (Taken 05/26/2025 1645) Progress: improving Outcome Evaluation: patient safe from falls and injury.continuing with antibiotics Plan of Care Reviewed With: patient Goal: Patient-Specific Goal (Individualized) Outcome: Ongoing, Progressing Flowsheets (Taken 05/26/2025 0800) Patient/Family-Specific Goals (Include Timeframe): patient will be safe from falls and injury during this shift Individualized Care Needs: safety Anxieties, Fears or Concerns: fall risk Goal: Absence of Hospital-Acquired Illness or Injury Outcome: Ongoing, Progressing Intervention: Prevent Infection Flowsheets (Taken 05/26/2025 164) Infection Prevention: hand hygiene promoted environmental surveillance performed Goal: Optimal Comfort and Wellbeing Outcome: Ongoing, Progressing Intervention: Provide Person-Centered Care Flowsheets (Taken 05/26/2025 164) Trust Relationship/Rapport: questions answered questions encouraged reassurance provided thoughts/feelings acknowledged Problem: Sepsis/Septic Shock Goal: Optimal Coping Outcome: Ongoing, Progressing Intervention: Support Patient and Family Response Flowsheets (Taken 05/26/2025 164) Supportive Measures: self-care encouraged active listening utilized Family/Support System Care: self-care encouraged Goal: Absence of Bleeding Outcome: Ongoing, Progressing Intervention: Monitor and Manage Bleeding Flowsheets (Taken 05/26/2025 164) Bleeding Precautions: blood pressure closely monitored Goal: Blood Glucose Level Within Target Range Outcome: Ongoing, Progressing Intervention: Optimize Glycemic Control Flowsheets (Taken 05/26/2025 164) Hyperglycemia Management: blood glucose monitored Hypoglycemia Management: blood glucose monitored Goal: Absence of Infection Signs and Symptoms Outcome: Ongoing, Progressing Intervention: Promote Stabilization Flowsheets (Taken 05/26/2025 164) Fluid/Electrolyte Management: fluids provided Intervention: Promote Recovery Flowsheets Taken 05/26/2025 164 Sleep/Rest Enhancement: natural light exposure provided Taken 05/26/2025 0800 Activity Management: activity adjusted per tolerance Goal: Optimal Nutrition Delivery Outcome: Ongoing, Progressing Intervention: Optimize Nutrition Delivery Flowsheets (Taken 05/26/2025 164) Nutrition Interventions: food preferences provided Problem: Liver Failure Goal: Optimal Coping with Liver Failure Outcome: Ongoing, Progressing Intervention: Support and Optimize Psychosocial Response Flowsheets (Taken 05/26/2025 164) Supportive Measures: self-care encouraged active listening utilized Family/Support System Care: self-care encouraged Goal: Absence of Bleeding Outcome: Ongoing, Progressing Intervention: Monitor and Manage Bleeding Flowsheets (Taken 05/26/2025 1645) Bleeding Precautions: blood pressure closely monitored Goal: Fluid and Electrolyte Balance Outcome: Ongoing, Progressing Intervention: Monitor and Manage Fluid and Electrolyte Balance Flowsheets (Taken 05/26/2025 164) Fluid/Electrolyte Management: fluids provided Goal: Minimize and Manage Gastrointestinal Symptoms Outcome: Ongoing, Progressing Intervention: Monitor and Support Gastrointestinal Function Flowsheets (Taken 05/26/2025 164) Perineal Care: education provided Fluid/Electrolyte Management: fluids provided Isolation Precautions: contact Goal: Blood Glucose Level Within Target Range Outcome: Ongoing, Progressing Intervention: Optimize Glycemic Control Flowsheets (Taken 05/26/2025 164) Hyperglycemia Management: blood glucose monitored Hypoglycemia Management: blood glucose monitored Goal: Hemodynamic Stability Outcome: Ongoing, Progressing Intervention: Optimize Blood Flow and Promote Renal Function Flowsheets (Taken 05/26/20251644) Stabilization Measures: legs elevated Goal: Absence of Infection Signs and Symptoms Outcome: Ongoing, Progressing Intervention: Prevent or Manage Infection Flowsheets (Taken 05/26/2025 164) Infection Management: aseptic technique maintained Isolation Precautions: contact Goal: Optimize Neurologic Function Outcome: Ongoing, Progressing Intervention: Monitor and Optimize Neurologic Status Flowsheets Taken 05/26/20251644 Seizure Precautions: activity supervised clutter-free environment maintained Taken 05/26/2025 08 Head of Bed (HOB) Positioning: HOB at 30-45 degrees Goal: Improved Oral Intake Outcome: Ongoing, Progressing Intervention: Promote and Optimize Nutrition Intake Flowsheets (Taken 05/26/20251644) Nutrition Interventions: food preferences provided Goal: Optimal Pain Control, Comfort and Function Outcome: Ongoing, Progressing Intervention: Prevent or Manage Pain Flowsheets (Taken 05/26/20251644) Pain Management Interventions: diversional activity provided Sleep/Rest Enhancement: natural light exposure provided Goal: Effective Oxygenation and Ventilation Outcome: Met Problem: Fall Injury Risk Goal: Absence of Fall and Fall-Related Injury Outcome: Ongoing, Progressing Intervention: Promote Injury-Free Environment Flowsheets (Taken 05/26/2025 0800) Safety Promotion/Fall Prevention: nonskid shoes/slippers when out of bed fall prevention program maintained clutter-free environment maintained Problem: Skin Injury Risk Increased Goal: Skin Health and Integrity Outcome: Ongoing, Progressing Intervention: Optimize Skin Protection Flowsheets Taken 05/26/20251644 Pressure Reduction Techniques: frequent weight shift encouraged Taken 05/26/2025 0800 Activity Management: activity adjusted per tolerance Head of Bed (HOB) Positioning: HOB at 30-45 degrees * Progress Notes - Alison Burns MD - 05/26/2025 3:47 PM EST Subjective Pt continues to report pain in the abdomen. Feels increased distension , trouble breathing. Having loose to watery stool again last . No fever. BP is improved. Explained plan of care. Review of Systems Complete review of system is negative except mentioned in subjective finding. Objective Vitals Temp: [36.6 ??C (97.9 ??F)-36.8 ??C (98.2 ??F)] 36.7 ??C (98.1 ??F) Heart Rate: [79-97] 88 BP: (94-103)/(61-67) 94/61 Physical Exam Physical Exam GENERAL:Alert and orientated, cooperative, in no acute distress. HEENT:Normal conjunctiva, no scleral icterus, mucous membranes- moist, no oral thrush, no sinus tenderness. CVS:Regular rhythm, normal rate, normal S1/S2, no murmur. RESPIRATORY: Normal breath sounds,clear on auscultation, no wheezing or rales. GASTROINTESTINAL:Normal BS. Abdomen-soft, non tender and distended. MUSCULOSKELETAL:Extremities symmetric without pedal edema. INTEGUMENTARY:Warm, no rashes or cyanosis. NEUROLOGIC:Non-focal. Cranial nerves II-XII grossly intact. 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 year-old female who has past medical history of anxiety/depression, CHF, type 2 diabetes, hypertension, decompensated cirrhosis secondary to GOOD, hepatic encephalopathy who presents to [facility] on 05/24/2025 from [facility] for further management of sepsis. Was having diarrhea, fever, diffuse abdominal pain for about 3 days ago. Diarrhea associated with abdominal pain and fever Sepsis Lactic acidosis E coli bacteremia -suspect GI source . Had dairrhea, fever, abdominalpain with OSH CT conceriUA -negative. -continue zosyn , day 3 -blood cultures at OSH -positive -repat cultures from [facility] -NTD -will fU culture result from OSH . Anemia, megaloblastic Thrombocytopenia, chronic -hb trending down. No active bleeding. Will get repeat HB . -continue to monitor with daily lab. Decompensated cirrhosis Chronic hyponatremia MELD 23 -HE; no present on admission. Hold lactulose given diarrhea -Ascites; mild ascites. No safe pocket for paracentesis -EV: hold home meds given hypotension -consulted liver tpx and GI . Appreciate recs. -having generalized anasarca: will start bumex 2 mg daily and spironolactone 100 mg daily ( lower dose of home regimen ) -start cholestyramine daily for skin itchiness. Diffuse colonic edema concerning for colitis vs hepatic colopathy -given fever, acute diarrhea , CT findings, concerning for infectious colitis but lactic acid is also elevated concerning for ischemic colitis as well but lactic acid improved with iv hydration -GI consulted. -continue to have diarrhea. GI panel -negative. C dif panel -pending. -stop iv fluids. -continue imodium prn . DM -Home meds; Jardiance, insulin, GLP 1 -inpt regimen: ISS Anxiety and depression - On BuSpar 10 mg daily GERD - Continue home PPI CHF - Per chart per chart review, echo on 10/31/2024 noted EF of 55-60% systolic pressure of pulmonary arteries is mildly increased with peak pressure to systolic by Doppler is 34.8 mm Hg - resume lower dose of home metoprolol Hyperlipidemia - Holding simvastatin in setting of worsening LFTs/transaminitis Restless leg - On ropinirole 1 mg daily Obesity - Body mass index is 36.82 kg/m??. - complicates all aspects of care Diet; soft diet. DVT prophylaxis:hold given hb trending down Code status:full code Disposition:home Follow up: Medically Ready for Discharge:Anticipated in 2-4 Days Alison Burns MD [facility]. Prefer secure chat/ [phone] * Care Plan - Malia Medina LPN - 05/26/2025 6:09 AM EST Problem: Adult Inpatient Plan of Care Goal: Plan of Care Review Outcome: Ongoing, Progressing Flowsheets (Taken 05/26/2025604) Progress: improving Outcome Evaluation: Patient verbalized understanding of plan of care this shift. Plan of Care Reviewed With: patient Goal: Patient-Specific Goal (Individualized) Outcome: Ongoing, Progressing Flowsheets (Taken 05/25/20251944) Patient/Family-Specific Goals (Include Timeframe): Patient will be free from harm throughout this shift Individualized Care Needs: Safety Anxieties, Fears or Concerns: Itching Goal: Absence of Hospital-Acquired Illness or Injury Outcome: Ongoing, Progressing Intervention: Identify and Manage Fall Risk Flowsheets (Taken 05/25/20251944) Safety Promotion/Fall Prevention: activity supervised clutter-free environment maintained safety round/check completed Intervention: Prevent Skin Injury Flowsheets (Taken 05/25/20251944) Body Position: weight shifting Intervention: Prevent and Manage VTE (Venous Thromboembolism) Risk Flowsheets (Taken 05/26/2025 0400) VTE Prevention/Management: education provided SCDs (sequential compression devices) off Intervention: Prevent Infection Flowsheets (Taken 05/26/2025604) Infection Prevention: hand hygiene promoted Goal: Optimal Comfort and Wellbeing Outcome: Ongoing, Progressing Intervention: Monitor Pain and Promote Comfort Flowsheets (Taken 05/26/2025604) Pain Management Interventions: medication (see MAR) Intervention: Provide Person-Centered Care Flowsheets (Taken 05/26/2025604) Trust Relationship/Rapport: care explained choices provided questions answered questions encouraged reassurance provided Problem: Sepsis/Septic Shock Goal: Optimal Coping Outcome: Ongoing, Progressing Intervention: Support Patient and Family Response Flowsheets (Taken 05/26/2025604) Supportive Measures: active listening utilized Family/Support System Care: support provided self-care encouraged Goal: Absence of Bleeding Outcome: Ongoing, Progressing Intervention: Monitor and Manage Bleeding Flowsheets (Taken 05/26/2025604) Bleeding Precautions: monitored for signs of bleeding Goal: Blood Glucose Level Within Target Range Outcome: Ongoing, Progressing Intervention: Optimize Glycemic Control Flowsheets (Taken 05/26/2025604) Hyperglycemia Management: blood glucose monitored Hypoglycemia Management: blood glucose monitored Goal: Absence of Infection Signs and Symptoms Outcome: Ongoing, Progressing Intervention: Initiate Sepsis Management Flowsheets (Taken 05/26/2025604) Stabilization Measures: legs elevated Infection Prevention: hand hygiene promoted Isolation Precautions: precautions maintained Intervention: Promote Stabilization Flowsheets (Taken 05/26/2025604) Fluid/Electrolyte Management: fluids provided Goal: Optimal Nutrition Delivery Outcome: Ongoing, Progressing Intervention: Optimize Nutrition Delivery Flowsheets (Taken 05/26/2025604) Nutrition Interventions: frequent small meals provided Problem: Liver Failure Goal: Optimal Coping with Liver Failure Outcome: Ongoing, Progressing Intervention: Support and Optimize Psychosocial Response Flowsheets (Taken 05/26/2025604) Supportive Measures: active listening utilized Family/Support System Care: support provided self-care encouraged Goal: Absence of Bleeding Outcome: Ongoing, Progressing Intervention: Monitor and Manage Bleeding Flowsheets (Taken 05/26/2025604) Bleeding Precautions: monitored for signs of bleeding Goal: Fluid and Electrolyte Balance Outcome: Ongoing, Progressing Intervention: Monitor and Manage Fluid and Electrolyte Balance Flowsheets (Taken 05/26/2025604) Fluid/Electrolyte Management: fluids provided Goal: Minimize and Manage Gastrointestinal Symptoms Outcome: Ongoing, Progressing Intervention: Monitor and Support Gastrointestinal Function Flowsheets (Taken 05/26/2025604) Fluid/Electrolyte Management: fluids provided Isolation Precautions: precautions maintained Goal: Blood Glucose Level Within Target Range Outcome: Ongoing, Progressing Intervention: Optimize Glycemic Control Flowsheets (Taken 05/26/2025604) Hyperglycemia Management: blood glucose monitored Hypoglycemia Management: blood glucose monitored Goal: Hemodynamic Stability Outcome: Ongoing, Progressing Goal: Absence of Infection Signs and Symptoms Outcome: Ongoing, Progressing Goal: Optimize Neurologic Function Outcome: Ongoing, Progressing Intervention: Monitor and Optimize Neurologic Status Flowsheets (Taken 05/26/2025604) Seizure Precautions: activity supervised Head of Bed (HOB) Positioning: HOB at 30 degrees Goal: Improved Oral Intake Outcome: Ongoing, Progressing Intervention: Promote and Optimize Nutrition Intake Flowsheets (Taken 05/26/2025604) Nutrition Interventions: frequent small meals provided Goal: Optimal Pain Control, Comfort and Function Outcome: Ongoing, Progressing Intervention: Prevent or Manage Pain Flowsheets (Taken 05/26/2025604) Pain Management Interventions: medication (see MAR) Goal: Effective Oxygenation and Ventilation Outcome: Ongoing, Progressing Intervention: Promote Airway Secretion Clearance Flowsheets (Taken 05/26/2025604) Activity Management: ambulated in room ambulated in dye Cough And Deep Breathing: done independently per patient Intervention: Optimize Oxygenation and Ventilation Flowsheets (Taken 05/26/2025604) Head of Bed (HOB) Positioning: HOB at 30 degrees Problem: Fall Injury Risk Goal: Absence of Fall and Fall-Related Injury Outcome: Ongoing, Progressing Intervention: Identify and Manage Contributors Flowsheets (Taken 05/26/2025604) Medication Review/Management: medications reviewed Intervention: Promote Injury-Free Environment Flowsheets (Taken 05/25/2025 194) Safety Promotion/Fall Prevention: activity supervised clutter-free environment maintained safety round/check completed * Consults - Natalie Gonzalez APRN - 05/25/2025 3:48 PM ESTAssociated Order(s): IP CONSULT TO INTERVENTIONAL RADIOLOGY 05/25/25 Patient: Avis Pemberton Date of : 1970/54 y.o. Date of Visit: May 25, 2025 Requesting Service: Alison Burns MD Chief Complaint: abdominal pain Reason for Consult: ascites History of Present Illness: Avis Pemberton is a 54 y.o. 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 US abdomen with small volume ascites. History and admission information obtained from chart review of primary and consulting teams notation , as well as speaking directly to consulting team. The following portions of the chart were reviewed this encounter and updated as appropriate: Review of Systems: Deferred Past Medical History[1] Surgical History[2] Social History[3] Family History: Personally reviewed and noncontributory. Allergies[4] Objective: All laboratory, images, tracings, and vital sign data are personally reviewed unless otherwise noted. VITALS: Temp: [36.6 ??C (97.9 ??F)-36.9 ??C (98.4 ??F)] 36.7 ??C (98.1 ??F) Heart Rate: [87-119] 87 Resp: [16-18] 16 BP: (84-119)/(56-70) 99/66 FiO2 (%): [21 %] 21 % Weight: 97.3 kg (214 lb 8.1 oz) Body mass index is 33.64 kg/m??. I & O SUMMARY I/O last 3 completed shifts: In: 734 (7.5 mL/kg) [P.O.:634; IV Piggyback:100] Out: - (0 mL/kg) Weight: 97.3 kg No intake/output data recorded. MEDICATIONS: Current Medications[5] LABS (PAST 18Labs in last 18 hours) CBC WBC 10.02 Hb 9.4 (L) Plt 53 (L) Hct 27.8 (L) INR 1.8 (H) PTT ?? Anti-Xa ?? BMP Na 128 (L) Cl 100 BUN 23 (H) Glu 107 (H) K 4.4 Co2 24 Cr 0.92 Ca 8.2 (L) Mg 2.1 Phos 2.2 (L) Lactate ?? LFT AST 61 (H) AlkPhos 132 (H) T Prot 5.2 (L) ALK 47 (H) Bili 3.7 (H) Alb ?? D.Bili ?? HOURS) EXAM: Deferred due to presence of relevant imaging. Radiographics/Diagnostics: Imaging personally reviewed and reviewed with attending. === 05/23/25 === CT [facility] OUTSIDE IMAGES === 05/24/25 === XR CHEST 1 VIEW - Narrative - CLINICAL INDICATION: shortness of breath TECHNIQUE: XR CHEST 1 VIEW COMPARISON: May 18, 2025 FINDINGS: Linear atelectasis at the lung bases. No edema or consolidation. No pneumothorax or significant effusion. Heart and mediastinal contours are within normal limits. - Impression - No acute findings. CRITICAL RESULT: No. COMMUNICATION: Per this written report. Drafted by Shady Lebron MD on 05/25/2025 9:51 AM Final report signed by Shady Lebron MD on 05/25/2025 9:52 AM Assessment & Plan: Cirrhosis, Decompensated Ascites - MELD-Na: MELD 3.0: 25 at 05/25/2025 2:38 AM MELD-Na: 25 at 05/25/2025 2:38 AM Calculated from: Serum Creatinine: 0.92 mg/dL (Using min of 1 mg/dL) at 05/25/2025 2:38 AM Serum Sodium: 128 mmol/L at 05/25/2025 2:38 AM Total Bilirubin: 3.7 mg/dL at 05/25/2025 2:38 AM Serum Albumin: 2.4 g/dL at 05/25/2025 2:38 AM INR(ratio): 1.8 at 05/25/2025 2:38 AM Age at listing (hypothetical): 54 years Sex: Female at 05/25/2025 2:38 AM - INR 1.8 (H), PTT ??, Plt 53 (L) - Personally reviewed US abdomen with scant volume ascites - VSS, Afebrile PLAN: - Not enough fluid noted on US for safe percutaneous procedure - Recommend conservative management at this time. Thank you for allowing us to participate in the care of this patient. Natalie Gonzalez APRN Interventional Radiology [phone] [1] Past Medical History: Diagnosis Date Anemia [...] OTHER SURGICAL HISTORY N/A Exploratory Laparotomy from [facility] OVARIAN CYST DRAINAGE N/A Aspiration Of Ovarian Cyst from [facility] TOTAL ABDOMINAL HYSTERECTOMY N/A 2011 Hysterectomy from [facility] [3] Social History Tobacco Use Smoking status: Former Current packs/day: 0.00 Average packs/day: 0.1 packs/day for 10.6 years (1.1 ttl pk-yrs) Types: Cigarettes Start date: 2011 Quit date: 02/2022 Years since quittin.2 Passive exposure: Past Smokeless tobacco: Never Vaping Use Vaping status: Never Used Substance Use Topics Alcohol use: Not Currently Comment: not drinking since 2017 Drug use: Not Currently Types: Marijuana Comment: May 2024 last used [4] Allergies Allergen Reactions Povidone Iodine Itching and Rash With Betadine (topical). Sulfa Drugs Hives Vortioxetine Itching and Rash Wound Dressing Adhesive Other - please document in the comment field Breaks out where skin comes in contact with adhesive. Prevents wound healing if over a wound (e.g.,incision opened up where covering incision from breast reduction surgery). [5] Current Facility-Administered Medications: busPIRone (Buspar) tablet 7.5 mg, 7.5 mg, Oral, BID, Alison Burns MD, 7.5 mg at 05/25/25 0915 cyclobenzaprine (Flexeril) tablet 10 mg, 10 mg, Oral, TID PRN, Alison Burns MD glucose (Glutose) 40 % oral gel 15-30 grams of glucose, 15-30 grams of glucose, Sublingual, q15 minPRN OR dextrose 10 % (D10W) bolus 125 mL, 125 mL, Intravenous, q15 min PRN OR dextrose 10 %(D10W) bolus 250 mL, 250 mL, Intravenous, q15 min PRN OR glucagon (human recombinant) injection1 mg, 1 mg, Intramuscular, q15 min PRN, Mannie Alves APRN, DNP hydrOXYzine pamoate (Vistaril) capsule 25 mg, 25 mg, Oral, 4x daily PRN, Lisette Quarles MD, 25 mg at 05/25/25 0915 insulin lispro (Admelog) 100 units/mL injection - Correction - Standard Dose, 0- 5 Units, Subcutaneous, TID with meals, Mannie Alves APRN, DNP insulin lispro (Admelog) injection - Correction - Nighttime Dose, 0-3 Units, Subcutaneous, Twice atnight, Mannie Alves APRN, DNP metoprolol tartrate (Lopressor) split tablet 12.5 mg, 12.5 mg, Oral, BID, Alison Burns MD, 12.5 mg at 05/25/25 0915 ondansetron ODT (Zofran-ODT) disintegrating tablet 4 mg, 4 mg, Oral, q6h PRN OR ondansetron (Zofran) injection 4 mg, 4 mg, Intravenous, q6h PRN OR ondansetron (Zofran) 4 MG/5ML solution 4 mg,4 mg, Oral, q6h PRN, Mannie Alves APRN, DNP oxyCODONE (Roxicodone) immediate release tablet 7.5 mg, 7.5 mg, Oral, q4h PRN, Alison Burns MD, 7.5 mg at 05/25/25 0933 pantoprazole (Protonix) EC tablet 40 mg, 40 mg, Oral, Daily, Mannie Alves APRN, DNP, 40 mg at 05/25/25 0915 piperacillin-tazobactam (Zosyn) 3.375 g in sodium chloride 0.9% 100 mL IVPB (vial adapter required), 3.375 g, Intravenous, q6h, Abdoul Rouse MD, Last Rate: 220 mL/hr at 05/25/25 1524, 3.375 g at 05/25/25 1524 pregabalin (Lyrica) capsule 25 mg, 25 mg, Oral, Nightly, Hector Guerrero MD, 25 mg at 05/24/25 2101 rifAXIMin (Xifaxan) tablet 550 mg, 550 mg, Oral, BID, Alison Burns MD, 550 mg at 05/25/25 0915 rOPINIRole (Requip) tablet 1 mg, 1 mg, Oral, TID, Hector Guerrero MD, 1 mg at 05/25/25 1524 Insert peripheral IV, , , Once AND Saline lock IV, , , Once AND sodium chloride 0.9 % flush10 mL, 10 mL, Intravenous, q12h, 10 mL at 05/25/25 1525 AND sodium chloride 0.9 % flush 10 mL, 10 mL, Intravenous, PRN, Mannie Alves APRN, DNP sodium chloride 0.9 % infusion, 75 mL/hr, Intravenous, Continuous, Alison Burns MD, Last Rate:75 mL/hr at 05/25/25 1240, 75 mL/hr at 05/25/25 1240 valACYclovir (Valtrex) tablet 500 mg, 500 mg, Oral, q AM, Alison Burns MD, 500 mg at 05/25/25 0518 zinc sulfate (Zincate) capsule 220 mg, 220 mg, Oral, BID, Alison Burns MD, 220 mg at 05/25/25 0915 * Progress Notes - Jonathan Drummond APRN, DNP - 05/25/2025 3:13 PM EST Abdominal Transplant Surgery Consult Follow-Up Note CHIEF COMPLAINT: abdominal pain Consult Reason: pt undergoing outpatient eval for liver transplant. 24 Hour HPI: No acute events overnight. Patient awake and alert. Discussed that we will re-assess on Monday 05/28 for ability to complete evaluation testing. No complaints at time of assessment. Edited by: Jonathan Drummond APRN, DNP at 05/25/2025 1513 MELD 3.0: 25 at 05/25/2025 2:38 AM MELD-Na: 25 at 05/25/2025 2:38 AM Calculated from: Serum Creatinine: 0.92 mg/dL (Using min of 1 mg/dL) at 05/25/2025 2:38 AM Serum Sodium: 128 mmol/L at 05/25/2025 2:38 AM Total Bilirubin: 3.7 mg/dL at 05/25/2025 2:38 AM Serum Albumin: 2.4 g/dL at 05/25/2025 2:38 AM INR(ratio): 1.8 at 05/25/2025 2:38 AM Age at listing (hypothetical): 54 years Sex: Female at 05/25/2025 2:38 AM MEDICATIONS Medications Ordered Prior to Encounter[1] REVIEW OF SYSTEMS 14-point ROS negative except as above in HPI. PHYSICAL EXAM GENERAL: NAD adult female sitting in chair EYES: PERRL + scleral icterus HENT: No lesions in anterior nares; no lesions in oropharynx, head atraumatic and normocephalic NECK: Supple. No thyromegaly or adenopathy. No JVD noted. The trachea appears midline. RESP: Symmetric expansion; no retractions. Clear to auscultation bilaterally. CARD: RRR, without appreciable murmur, rubs, or gallop. Extremities: +LE edema, no cyanosis or clubbing. Pulses palpable x4. GI: No organomegaly or masses. Nontender nondistended. Soft BS present x 4 quadrants. SKIN: No rash, sores, lesions or subcutaneous nodules. : voids NEURO: GCS 15 LABS Results from last 7 days Lab Units 05/25/25 0238 SODIUM mmol/L 128* POTASSIUM mmol/L 4.4 CHLORIDE mmol/L 100 CO2 mmol/L 24 BUN mg/dL 23* CREATININE mg/dL 0.92 CALCIUM mg/dL 8.2* BILIRUBIN TOTAL mg/dL 3.7* ALKALINE PHOSPHATASE U/L 132* ALT U/L 47* AST U/L 61* GLUCOSE mg/dL 107* Results from last 7 days Lab Units 05/25/25 0238 WBC 10*3/uL 10.02 HEMOGLOBIN g/dL 9.4* HEMATOCRIT % 27.8* PLATELETS 10*3/uL 53* Results from last 7 days Lab Units 05/25/25 0238 MAGNESIUM mg/dL 2.1 Lab Results Component Value Date CALCIUM 8.2 (L) 05/25/2025 PHOS 2.2 (L) 05/25/2025 MELD 3.0: 25 at 05/25/2025 2:38 AM MELD-Na: 25 at 05/25/2025 2:38 AM Calculated from: Serum Creatinine: 0.92 mg/dL (Using min of 1 mg/dL) at 05/25/2025 2:38 AM Serum Sodium: 128 mmol/L at 05/25/2025 2:38 AM Total Bilirubin: 3.7 mg/dL at 05/25/2025 2:38 AM Serum Albumin: 2.4 g/dL at 05/25/2025 2:38 AM INR(ratio): 1.8 at 05/25/2025 2:38 AM Age at listing (hypothetical): 54 years Sex: Female at 05/25/2025 2:38 AM ASSESSMENT/PLAN Ms. Avis Pemberton is a 54 YO F with decompensated [facility] cirrhosis who has been undergoing transplant evaluation, presented to the [facility] 05/24 by [address] of EMS from and OSH with c/o abdominal pain. Leukocytosis Abdominal Pain - 11/13: WBC 14.2 from baseline of 6K - 05/25: WBC 10 - 05/24 Bcxr pending; UA negative - recommend paracentesis with fluid cell count and GS/culture. - remains on empiric zosyn. Decompensated MASH cirrhosis Ascites HE - MELD 3.0: 25 per labs 05/25/25, ABO A+ - Please consult GAS/Liver as they follow her in [facility] Hepatology for cirrhosis management. - The patient has started transplant evaluation testing; Pt remains not socially cleared pending f/up with Dr. Cervantes outpatient and needs to complete outpatient mammography and pap-smear. - Will re-assess on Monday 05/28 (if patient remains inpatient) to see if the patient is able to complete the remain evaluation testing. - Discharge per primary team - Transplant surgery will continue to follow Low Vitamin D - 18.9, will need ergocalciferol course post OLT. Morbid Obesity - BMI 36.8; complicates all aspects of patient's care - baseline weight noted from 04/03/25 Hepatology visit is 166 lbs. Patient 214 lbs as of 05/24 - patient's body habitus is not prohibitive to transplant at this time. Will continue to monitor. Edited by: Jonathan Drummond, CYDNEY, DNP at 05/25/2025 1513 I spent 38 minutes chart review, counseling patient/family regarding diagnosis, prognosis, and treatment plan (including risks and benefits), and discussing case with care team members and formulating the plan. [1] No current facility-administered medications on file prior to encounter. Current Outpatient Medications on File Prior to Encounter Medication Sig Dispense Refill bumetanide (Bumex) 1 MG tablet Take 2 tablets by mouth daily. busPIRone (Buspar) 7.5 MG tablet Take 1 tablet by mouth 2 times a day. cyclobenzaprine (Flexeril) 10 MG tablet Take 1 tablet by mouth 3 times a day as needed for muscle spasms. desvenlafaxine (Pristiq) 50 MG 24 hr tablet Take 1 tablet by mouth daily. Do not crush, chew, or split. diclofenac (Voltaren) 1 % topical gel Place 2 g on the skin 4 times a day as needed (joint pain). ergocalciferol (Vitamin D-2) 1.25 MG (74054 UT) capsule Take 1 capsule by mouth 1 time per week. Take on Wednesday FeroSul 325 (65 Fe) MG tablet Take 1 tablet by mouth daily. insulin aspart (NovoLOG) 100 UNIT/ML injection vial Inject 5 Units under the skin 3 times a day before meals. If blood sugar is greater than 150 insulin glargine (Lantus) 100 UNIT/ML injection vial Inject 20 Units under the skin every morning. Jardiance 25 MG Take 1 tablet by mouth daily. lactulose (Chronulac) 10 GM/15ML oral solution Take 15 mL by mouth daily. lansoprazole (Prevacid) [address] capsule Take 1 capsule by mouth daily. lisinopril 2.5 MG tablet Take 1 tablet by mouth daily. metoprolol succinate XL (Toprol-XL) 50 MG 24 hr tablet Take 1 tablet by mouth every morning. Do notcrush or chew. oxyCODONE (Roxicodone) 5 MG immediate release tablet Take 1-1.5 tablets by mouth every 4 to 6 hoursas needed for severe pain. Ozempic, 1 MG/DOSE, 4 MG/3ML solution pen-injector Inject 1 mg under the skin 1 time per week. pregabalin (Lyrica) 25 MG capsule Take 1 capsule by mouth 2 times a day. rOPINIRole (Requip) 1 MG tablet Take 1 tablet by mouth 4 times a day. spironolactone (Aldactone) 100 MG tablet Take 2 tablets by mouth every morning. valACYclovir (Valtrex) 500 MG tablet Take 1 tablet by mouth every morning. diphenhydrAMINE (Benadryl) 50 MG tablet - 50 mg PO 1 hour prior to the CT scan on 05-25-25 1 tablet0 predniSONE (Deltasone) 50 MG tablet 50 mg PO, 13, 7, and [address] Scan on 05-25-25. 3tablet 0 rifAXIMin (Xifaxan) 550 MG tablet Take 1 tablet by mouth 2 times a day. zinc sulfate (Zincate) 220 (50 Zn) MG capsule Take 1 capsule by mouth 2 times a day. 240 capsule 2 [DISCONTINUED] baclofen (Lioresal) 10 MG tablet Take 1 tablet by mouth nightly. (Patient not taking: Reported on 05/18/2025) 30 tablet 0 [DISCONTINUED] desvenlafaxine (Pristiq) 100 MG 24 hr tablet Take 50 mg by mouth daily. [DISCONTINUED] hydrOXYzine pamoate (Vistaril) 25 MG capsule Take 1 capsule by mouth 3 times a day as needed for itching. [DISCONTINUED] insulin glargine (Lantus SoloStar) 100 UNIT/ML injection pen Inject 20 Units under the skin every morning. [DISCONTINUED] lisinopril 2.5 MG tablet Take 1 tablet by mouth daily. [DISCONTINUED] metoprolol succinate XL (Toprol-XL) 50 MG 24 hr tablet Take 1 tablet by mouth daily. [DISCONTINUED] NovoLOG FLEXPEN 100 UNIT/ML injection pen Inject 5 Units under the skin 3 times a day as needed for high blood sugar (for BG > 150). [DISCONTINUED] ondansetron ODT (Zofran-ODT) 8 MG disintegrating tablet Dissolve 1 tablet on the tongue every 8 hours as needed for nausea or vomiting. [DISCONTINUED] potassium chloride CR (Klor-Con M20) 20 MEQ ER tablet Take 1 tablet by mouth 2 timesa day. [DISCONTINUED] promethazine (Phenergan) 25 MG tablet Take 1 tablet by mouth 3 times a day as neededfor nausea or vomiting (if not helped by ondansetron). [DISCONTINUED] Rimegepant Sulfate (Nurtec) 75 MG tablet dispersible Dissolve 1 tablet on the tonguedaily as needed (migraine headache). [DISCONTINUED] simvastatin (Zocor) 20 MG tablet Take 1 tablet by mouth nightly. * Hospital Course - Nj Johns MD - 05/25/2025 2:58 PM EST MELD 3.0: 25 at 05/25/2025 2:38 AM MELD-Na: 25 at 05/25/2025 2:38 AM Calculated from: Serum Creatinine: 0.92 mg/dL (Using min of 1 mg/dL) at 05/25/2025 2:38 AM Serum Sodium: 128 mmol/L at 05/25/2025 2:38 AM Total Bilirubin: 3.7 mg/dL at 05/25/2025 2:38 AM Serum Albumin: 2.4 g/dL at 05/25/2025 2:38 AM INR(ratio): 1.8 at 05/25/2025 2:38 AM Age at listing (hypothetical): 54 years Sex: Female at 05/25/2025 2:38 AM * Progress Notes - Alexsander Robledo - 05/25/2025 2:12 PM EST Physical Therapy Evaluation Patient Name: Avis Pemberton Today's Date: 05/25/2025 PT Discharge Recommendations: Home with assistance, Outpatient PT Equipment Recommended: Rollator History Avis Pemberton is 54 y.o. female admitted 05/24/2025 for work-up of Sepsis, due to unspecified organism, unspecified whether acute organ dysfunction present. Problem List Active Hospital Problems Diagnosis Date Noted Sepsis, due to unspecified organism, unspecified whether acute organ dysfunction present 05/24/2025 Transaminitis 05/24/2025 Coagulopathy 05/24/2025 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 02/26/2020 Anxiety and depression 07/24/2015 Diabetes mellitus without complication 07/24/2015 Procedures Past Medical History Patient has a past medical history of Anemia, Anisocoria, Arthritis, Cataract, CHF (congestive heart failure), Diabetes mellitus (2019), History of transfusion, Hypertension (2017), Iritis, Iritis, Migraine, Osteomyelitis of vertebra, site unspecified (CMS/HCC), Personal history of other diseases of the female genital tract, and Unspecified cirrhosis of liver (CMS/HCC). Past Surgical History Patient has a past surgical history that includes Total abdominal hysterectomy (N/A, 2011); Breast surgery (N/A); Other surgical history (N/A); Back surgery (N/A, 1994); Ovarian cyst drainage (N/A); Back surgery (2009); incision and drainage, abcess (2009); Gallbladder surgery (2017); Liver biopsy;ganglion cyst excision, wrist (Left); Appendectomy; and Exploratory laparotomy. Precautions Medical Precautions: Fall precautions Subjective Pt agreeable to participating in evaluation. States she has had a lot to think about today with regards to her living will and all that that has to entail. 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 Post-Session: Sitting in chair, Chair alarm, Lines intact, RN notified, Call light in reach Post-Session Comments: All needs met and within reach. Home Living/Set-up Lives With: Sister Home Type: House Home Adaptive Equipment: Cane, shower chair Home Layout: One level, Stairs to enter with rails Number of Stairs: 4 (1+3) Bathroom: Tub/Shower: Walk-in shower, Tub/Shower combo, Shower chair Bathroom: Toilet: Standard Bathroom: Accessibility: Accessible Home Living Comments: Pt states she will be staying at her sister's house in [place] at discharge. Prior Level of Function Receives Help From: (Sister) Level of Mobility: Ambulatory- community Mobility [place]: Independent gait with device History of Falls: Yes ( a lot d/t BLE numbness) ADL Performance: Needs assistance Bathing: Independent Upper Body Dressing: Independent Lower Body Dressing: Independent Grooming: Independent Toileting: Independent Eating: Independent Home Management Skills: Needs assist Patient/Family Goals Objective Pain No pain reported. Delirium Screening RASS: Alert and calm Confusion Assessment Method-ICU (CAM-ICU/PCAM-ICU) Feature 3: Altered Level of Consciousness: Negative Cognition Overall Cognitive Status: Within Functional Limits Arousal/Alertness: Appropriate responses to stimuli Mood/Behavior: Alert Orientation Level: Oriented X4 Single Step Commands: Consistently Multi-Step Commands: Consistently Method of Communication: Verbal Right Upper Extremity Examination RUE Assessment: Within Functional Limits Manual Muscle Testing - RUE: Within functional limits Left Upper Extremity Examination LUE ROM Assessment LUE Assessment: Within Functional Limits Manual Muscle Testing - LUE Manual Muscle Testing - LUE: Within functional limits Right Lower Extremity Examination RLE ROM Assessment RLE Assessment: Within Functional Limits Manual Muscle Testing - RLE Manual Muscle Testing - RLE: Within functional limits Sensation Light Touch: Right Lower Extremity: Mild impairment (N/T primarily L2-L3 dermatone) Left Lower Extremity Examination LLE Assessment: Within Functional Limits Manual Muscle Testing: Within functional limits Sensation Light Touch: Left Lower Extremity: Mild impairment (N/T distal to knee) Bed Mobility Bed Mobility Exam: Scooting/Bridging Level of [place]: Stand-by assist Physical/Nonphysical Assist: Supervision, Verbal Cues, Minimal cues Assistive Device: Bed rails Bed Mobility Exam: Supine to Sit Level of [place]: Stand-by assist Physical/Nonphysical Assist: Supervision, Verbal Cues, HOB elevated, Minimal cues Assistive Device: Bed rails Transfers Transfer Exam: Sit to stand Level of [place]: Contact guard Physical/Nonphysical Assist: Supervision, Verbal Cues, 1 person + 1 person to manage equipment, Minimal cues Assistive Device: Walker, rolling Transfer Exam: Stand to Sit Level of [place]: Contact guard Physical/Nonphysical Assist: Supervision, Verbal Cues, 1 person + 1 person to manage equipment, Minimal cues Assistive Device: Walker, rolling Balance Static Sitting Balance Static Sitting-Balance Support: Right upper extremity support, Left upper extremity support, Feet supported Static Sitting-Level of Assistance: Standby assist Dynamic Sitting Balance Dynamic Sitting-Balance Support: Right upper extremity support, Left upper extremity support, Feet supported Dynamic Sitting-Balance: Anterior/Posterior weight shifts, Lateral weight shifts Level of Assistance: Standby assisst Static Standing Balance Static Standing-Balance Support: Right upper extremity support, Left upper extremity support Static Standing-Level of Assistance: Contact guard Dynamic Standing Balance Dynamic Standing-Balance Support: Right upper extremity support, Left upper extremity support Dynamic Standing-Balance: Lateral weight shifts, Anterior/Posterior weight shifts Dynamic Standing Level of Assistance: Contact guard Therapeutic Activity (9 minutes) Time required for skilled line management, room setup to reduce fall hazards, and both verbal and tactile cueing for increased independence with mobility. Cueing provided for safe hand placement and LE positioning prior to initiating STS with use of RW today. Pt tolerated 5 minutes of static and dynamic standing activity in total today for inc LE weight acceptance, cueing provided for upright posture and normalized HALEY to reduce fall risk. Education provided regarding PT POC and discharge recommendations, pt verbalized her understanding. Gait Training (15 minutes) Device: Rolling walker Assistance: Contact guard assist, Additional assist for line management Distance: 125' Gait Analysis: Slowed gait speed, shuffling gait pattern with poor foot clearance bilaterally (pt at times sliding her LLE forward to advance it), and flexed posture. No overt LOB noted throughout. Gait Training Interventions: Cueing for RW management, uprighjt posture, increased knee/hip flexionbilaterally for improved foot clearance. Standardized Assessments Standardized Assessments Standardized Assessments: [facility] 6-Clicks Mobility Assessment [facility] 6-Clicks Mobility Assessment Difficulty patient has turning over in bed (including adjusting bedclothes, sheets, and blankets)?:None Difficulty patient has sitting down on and standing up from a chair with arms (wheelchair, bedside commode, etc.)?: A little Difficulty patient has moving from lying on back to sitting on the side of the bed?: None How much help does the patient need moving to and from a bed to a chair (including a wheelchair)?: A little How much help does the patient need to walk in hospital room?: A little How much help does the patient need climbing 3-5 steps with a railing?: A little [facility] 6-Clicks Mobility Assessment Total : 20 No data recorded Assessment Pt presents with impaired strength, balance, and activity tolerance requiring increased physical assistance and cueing to safely perform functional mobility. Pt demonstrated the ability to perform all mobility including bed mobility, transfers, and ambulation with SBA-CGA for safety with no LOB noted throughout. Will plan to trial amb with use of rollator in future sessions as pt demonstrates good standing balance but is primarily limited by LE fatigue when amb community distances. Pt will continue to benefit from skilled PT while IP in order to address impairments and facilitate the highest level of independence with mobility possible. Impairments: Decreased range of motion, Decreased strength, Impaired gait dynamics/performance, Impaired locomotion, Impaired functional mobility/transfers, Impaired balance Activity Limitations: Inability to complete ADLs independently, Inability to transfer independently, Inability to ambulate community distances Participation Restrictions: Self-care, Home management Activity Tolerance: Standing, Walking, Tolerates 30 min activity with multiple rests Evaluation/Treatment Tolerance: Patient limited by fatigue Diagnosis: Impaired functional mobility Rehab Potential: Good, to achieve stated therapy goals Eval Complexity History Profile: 1 - 2 personal factors and/or comorbidities Clinical Presentation: Stable and/or uncomplicated characteristics Clinical Decision Making: Low complexity PT Recommendations Discharge Destination: Home with assistance, Outpatient PT Discharge Equipment: Rollator Demonstrates Need for Referral to Another Service: [facility] Hand/spiritual care Plan Planned PT Interventions Balance training, Bed mobility training, Gait training, Transfer training, Neuromuscular re-education, Stretching, Strengthening, ROM, Functional Mobility PT Frequency 2 - 5 times per week PT Duration 2 weeks Goals PT GOAL DETAILS Time Frame PT Goal 1: Pt will demonstrate the ability to perform transfers with SBA and LRAD 2 weeks PT Goal 2: Pt will demonstrate the ability to amb 250ft with SBA and LRAD 2 weeks PT Goal 3: Pt will demonstrate the ability to navigate 4 stairs with CGA and unilateral handrail 2 weeks Written by Alexsander Robledo on 05/25/25 at 2:37 PM. * Progress Notes - Riana Almaraz - 05/25/2025 2:12 PM EST Occupational Therapy Evaluation Patient Name: Avis Pemberton Today's Date: 05/25/2025 OT Discharge Recommendations: Home with assistance Equipment Recommended: (pt may need a RW or rollator. to be determined.) History Avis Pemberton is 54 y.o. female admitted 05/24/2025 for work-up of Sepsis, due to unspecified organism, unspecified whether acute organ dysfunction present. 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 Past Surgical History Patient has a past surgical history that includes Total abdominal hysterectomy (N/A, 2011); Breast surgery (N/A); Other surgical history (N/A); Back surgery (N/A, 1994); Ovarian cyst drainage (N/A); Back surgery (2009); incision and drainage, abcess (2009); Gallbladder surgery (2017); Liver biopsy;ganglion cyst excision, wrist (Left); Appendectomy; and Exploratory laparotomy. 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 Post-Session: Sitting in chair, Chair alarm, Lines intact, RN notified, Call light in reach Post-Session Comments: All needs met and within reach. Home Living/Set-up Lives With: Sister Home Type: House Home Adaptive Equipment: Cane, shower chair Home Layout: One level, Stairs to enter with rails Number of Stairs: 4 (1+3) Bathroom: Tub/Shower: Walk-in shower, Tub/Shower combo, Shower chair Bathroom: Toilet: Standard Bathroom: Accessibility: Accessible Home Living Comments: Pt states she will be staying at her sister's house in [place] at discharge. Prior Level of Function Receives Help From: (Sister) Level of Mobility: Ambulatory- community Mobility [place]: Independent gait with device History of Falls: Yes ( a lot d/t BLE numbness) ADL Performance: Needs assistance Bathing: Independent Upper Body Dressing: Independent Lower Body Dressing: Independent Grooming: Independent Toileting: Independent Eating: Independent Home Management Skills: Needs assist Patient/Family Goals Statement Pt would like to get a liver transplant so she can spend time with her grandchildren. Objective Pain Pt reported abdominal pain, but did not rate. RN aware. Delirium Screening RASS: Alert and calm Confusion Assessment Method-ICU (CAM-ICU/PCAM-ICU) Feature 3: Altered Level of Consciousness: Negative Cognition Overall Cognitive Status: Within Functional Limits Arousal/Alertness: Appropriate responses to stimuli Mood/Behavior: Alert Orientation Level: Oriented X4 Single Step Commands: Consistently Multi-Step Commands: Consistently Method of Communication: Verbal Right Upper Extremity Examination RUE ROM Assessment RUE Assessment: Within Functional Limits Manual Muscle Testing - RUE: Within functional limits Sensation Light Touch: Right Upper Extremity: Mild impairment Left Upper Extremity Examination LUE ROM Assessment LUE Assessment: Within Functional Limits Manual Muscle Testing - LUE: Within functional limits Sensation Light Touch: Left Upper Extremity: Mild impairment Right Lower Extremity Examination RLE ROM Assessment RLE Assessment: Within Functional Limits Manual Muscle Testing - RLE: Within functional limits Sensation Light Touch: Right Lower Extremity: Mild impairment (N/T primarily L2-L3 dermatone) Left Lower Extremity Examination LLE ROM Assessment LLE Assessment: Within Functional Limits Manual Muscle Testing: Within functional limits Sensation Light Touch: Left Lower Extremity: Mild impairment (N/T distal to knee) Bed Mobility Bed Mobility Exam: Supine to Sit Level of [place]: Stand-by assist Physical/Nonphysical Assist: Supervision, Verbal Cues, HOB elevated, Minimal cues Assistive Device: Bed rails Transfers Transfer Exam: Sit to stand Level of [place]: Contact guard Physical/Nonphysical Assist: Supervision, Verbal Cues, 1 person + 1 person to manage equipment, Minimal cues Assistive Device: Walker, rolling Transfer Exam: Stand to Sit Level of [place]: Contact guard Physical/Nonphysical Assist: Supervision, Verbal Cues, 1 person + 1 person to manage equipment, Minimal cues Assistive Device: Walker, rolling Toilet Transfer Level of [place]: Contact guard (anticipated) Balance Postural Appearance Posture: Within Functional Limits Static Sitting Balance Static Sitting-Balance Support: Right upper extremity support, Left upper extremity support, Feet supported Static Sitting-Level of Assistance: Standby assist Dynamic Sitting Balance Dynamic Sitting-Balance Support: Right upper extremity support, Left upper extremity support, Feet supported Dynamic Sitting-Balance: Anterior/Posterior weight shifts, Lateral weight shifts Level of Assistance: Standby assisst Static Standing Balance Static Standing-Balance Support: Right upper extremity support, Left upper extremity support Static Standing-Level of Assistance: Contact guard Dynamic Standing Balance Dynamic Standing-Balance Support: Right upper extremity support, Left upper extremity support Dynamic Standing-Balance: Lateral weight shifts, Anterior/Posterior weight shifts Dynamic Standing Level of Assistance: Contact guard Self-Care Interventions Self Care/Home Management (ADLs) Time Entry: 27 Pt was seen for functional mobility in preparation for participation in ADL tasks and transfers. Ptwas able to complete bed mobility with SBA, but required CGA to ambulate. Pt typically does not useany equipment to assist with ambulation, however pt reports frequent falls. So use of a RW was highly encouraged and pt was able to use RW for ambulation in the room with SBA/CGA. Pt reports she feltmore secure with the RW. Feeding Feeding Level of Assistance: Independent Feeding Where Assessed: Chair Level Grooming Grooming Level of Assistance: Setup, SBA Grooming Where Assessed: Edge of bed UE Dressing UE Dressing Level of Assistance: Setup, Supervision UE Dressing Where Assessed: Edge of bed Lower Extremity Dressing Shoe Level of Assistance: Contact guard (slip on house shoes) LE Dressing Where Assessed: Edge of bed Standardized Assessments [facility] 6-Click Daily Activities Help from Other: Don/Doff Regular Lower Body Clothings: Little Help From Other: Bathing: Little Help From Other: Toileting: Little Help From Other: Don/Doff Upper Body Clothings: None Help From Other: Grooming: None Help From Other: Eating Meals: None [facility] 6 Click - Daily Activities Score: 21 Assessment Pt was seen for OT evaluation. Pt demonstrates decreased strength, endurance, balance and coordination. Pt would benefit from skilled OT services to assist with discharge planning, ADL retraining, functional mobility and generalized strengthening to return to her prior level of independence and reduce pt's risk of falls. OT Findings: Impaired ADL performance, Decreased upper extremity strength, Impaired functional mobility, Impaired IADL performance, Decreased endurance/ventilation/gas exchange, Decreased gross motorcontrol/coordination, Impaired balance Rehab Potential: Good, to achieve stated therapy goals Barriers to Discharge: Comorbidities Demonstrates Need for Referral to Another Service: [facility]/spiritual care Eval Complexity Occupational Profile: Expanded review of medical/therapy records and additional review of physical,cognitive, or psychosocial history Performance Deficits: Activities of daily living (ADLs), Instrumental activities of daily living (IADLs), Leisure, Habits, Routines, Roles, Physical Clinical Decision Making: Moderate Overall Eval complexity: Moderate OT Recommendations Discharge Destination: Home with assistance Discharge Equipment: (pt may need a RW or rollator. to be determined.) Demonstrates Need for Referral to Another Service: [facility]/spiritual care Plan Planned OT Interventions IADL retraining, ADL retraining, Balance training, Bed mobility Training, Strengthening, Transfer training, Functional mobility, Caregiver education OT Frequency 2 - 5 times per week OT Duration 2 weeks Goals OT GOAL DETAILS Time Frame OT Goal 1: Pt will complete LB dressing with set-up and AAD. 2 weeks OT Goal 2: Pt will stand at sink x 10 minutes with SBA to complete grooming tasks with set-up. 2 weeks OT Goal 3: Pt will be independent with bilateral UE therapeutic exercises to increase safety and independence with ADLs and functional mobility. 2 weeks OT Goal 4: Pt will demonstrate understanding of energy conservation/work simplification techniques while completing ADL tasks. 2 weeks Written by Riana Almaraz on 05/25/25 at 3:19 PM. * Care Plan - Sharri River RN - 05/25/2025 1:19 PM EST Problem: Adult Inpatient Plan of Care Goal: Plan of Care Review Outcome: Ongoing, Progressing Flowsheets (Taken 05/25/20251315) Progress: improving Plan of Care Reviewed With: patient Goal: Patient-Specific Goal (Individualized) Outcome: Ongoing, Progressing Flowsheets (Taken 05/25/2025 0800) Patient/Family-Specific Goals (Include Timeframe): Patient will be free from harm throughout this shift Individualized Care Needs: Safety Anxieties, Fears or Concerns: Itching Goal: Absence of Hospital-Acquired Illness or Injury Outcome: Ongoing, Progressing Intervention: Identify and Manage Fall Risk Flowsheets (Taken 05/25/20251315) Safety Promotion/Fall Prevention: activity supervised assistive device/personal items within reach clutter-free environment maintained fall prevention program maintained room organization consistent nonskid shoes/slippers when out of bed safety round/check completed Intervention: Prevent Skin Injury Flowsheets (Taken 05/25/2025 0800) Body Position: weight shifting Intervention: Prevent and Manage VTE (Venous Thromboembolism) Risk Flowsheets (Taken 05/25/20251315) VTE Prevention/Management: education provided Intervention: Prevent Infection Flowsheets (Taken 05/25/20251315) Infection Prevention: hand hygiene promoted Goal: Optimal Comfort and Wellbeing Outcome: Ongoing, Progressing Intervention: Monitor Pain and Promote Comfort Flowsheets (Taken 05/25/2025 0933) Pain Management Interventions: medication (see MAR) pillow support provided Intervention: Provide Person-Centered Care Flowsheets (Taken 05/25/20251315) Trust Relationship/Rapport: care explained empathic listening provided questions answered thoughts/feelings acknowledged reassurance provided questions encouraged choices provided emotional support provided Problem: Sepsis/Septic Shock Goal: Optimal Coping Outcome: Ongoing, Progressing Intervention: Support Patient and Family Response Flowsheets (Taken 05/25/20251315) Supportive Measures: active listening utilized Family/Support System Care: support provided Goal: Absence of Bleeding Outcome: Ongoing, Progressing Intervention: Monitor and Manage Bleeding Flowsheets (Taken 05/25/20251315) Bleeding Precautions: monitored for signs of bleeding Goal: Blood Glucose Level Within Target Range Outcome: Ongoing, Progressing Intervention: Optimize Glycemic Control Flowsheets (Taken 05/25/20251315) Hypoglycemia Management: blood glucose monitored Goal: Absence of Infection Signs and Symptoms Outcome: Ongoing, Progressing Intervention: Initiate Sepsis Management Flowsheets (Taken 05/25/20251315) Stabilization Measures: legs elevated Infection Prevention: hand hygiene promoted Isolation Precautions: protective Intervention: Promote Stabilization Flowsheets (Taken 05/25/20251315) Fluid/Electrolyte Management: fluids provided Intervention: Promote Recovery Flowsheets (Taken 05/25/20251315) Activity Management: activity adjusted per tolerance ambulated to bathroom Airway/Ventilation Management: position adjusted calming measures promoted Sleep/Rest Enhancement: relaxation techniques promoted Goal: Optimal Nutrition Delivery Outcome: Ongoing, Progressing Intervention: Optimize Nutrition Delivery Flowsheets (Taken 05/25/20251315) Nutrition Interventions: frequent small meals provided Problem: Liver Failure Goal: Optimal Coping with Liver Failure Outcome: Ongoing, Progressing Intervention: Support and Optimize Psychosocial Response Flowsheets (Taken 05/25/20251315) Supportive Measures: active listening utilized Family/Support System Care: support provided Goal: Absence of Bleeding Outcome: Ongoing, Progressing Intervention: Monitor and Manage Bleeding Flowsheets (Taken 05/25/20251315) Bleeding Precautions: monitored for signs of bleeding Goal: Fluid and Electrolyte Balance Outcome: Ongoing, Progressing Intervention: Monitor and Manage Fluid and Electrolyte Balance Flowsheets (Taken 05/25/20251315) Fluid/Electrolyte Management: fluids provided Goal: Minimize and Manage Gastrointestinal Symptoms Outcome: Ongoing, Progressing Intervention: Monitor and Support Gastrointestinal Function Flowsheets (Taken 05/25/20251315) Fluid/Electrolyte Management: fluids provided Isolation Precautions: protective Goal: Blood Glucose Level Within Target Range Outcome: Ongoing, Progressing Intervention: Optimize Glycemic Control Flowsheets (Taken 05/25/20251315) Hypoglycemia Management: blood glucose monitored Goal: Hemodynamic Stability Outcome: Ongoing, Progressing Intervention: Optimize Blood Flow and Promote Renal Function Flowsheets (Taken 05/25/20251315) Stabilization Measures: legs elevated Goal: Absence of Infection Signs and Symptoms Outcome: Ongoing, Progressing Intervention: Prevent or Manage Infection Flowsheets (Taken 05/25/20251315) Isolation Precautions: protective Goal: Optimize Neurologic Function Outcome: Ongoing, Progressing Intervention: Monitor and Optimize Neurologic Status Flowsheets (Taken 05/25/20251315) Sensory Stimulation Regulation: visual stimulation minimized Seizure Precautions: activity supervised Goal: Improved Oral Intake Outcome: Ongoing, Progressing Intervention: Promote and Optimize Nutrition Intake Flowsheets (Taken 05/25/20251315) Nutrition Interventions: frequent small meals provided Goal: Optimal Pain Control, Comfort and Function Outcome: Ongoing, Progressing Intervention: Prevent or Manage Pain Flowsheets Taken 05/25/20251315 Sleep/Rest Enhancement: relaxation techniques promoted Taken 05/25/2025 0933 Pain Management Interventions: medication (see MAR) pillow support provided Goal: Effective Oxygenation and Ventilation Outcome: Ongoing, Progressing Intervention: Promote Airway Secretion Clearance Flowsheets (Taken 05/25/20251315) Activity Management: activity adjusted per tolerance ambulated to bathroom Intervention: Optimize Oxygenation and Ventilation Flowsheets (Taken 05/25/20251315) Airway/Ventilation Management: position adjusted calming measures promoted Problem: Fall Injury Risk Goal: Absence of Fall and Fall-Related Injury Outcome: Ongoing, Progressing Intervention: Identify and Manage Contributors Flowsheets (Taken 05/25/20251315) Medication Review/Management: medications reviewed Intervention: Promote Injury-Free Environment Flowsheets (Taken 05/25/20251315) Safety Promotion/Fall Prevention: activity supervised assistive device/personal items within reach clutter-free environment maintained fall prevention program maintained room organization consistent nonskid shoes/slippers when out of bed safety round/check completed * Progress Notes - Alison Burns MD - 05/25/2025 1:09 PM EST Subjective Pt continues to report pain in the abdomen. Feels increased distension , trouble breathing. Having loose to watery stool again last . No fever. BP is improved. Explained plan of care. Review of Systems Complete review of system is negative except mentioned in subjective finding. Objective Vitals Temp: [36.6 ??C (97.9 ??F)-36.9 ??C (98.4 ??F)] 36.6 ??C (97.9 ??F) Heart Rate: [87-119] 88 Resp: [15-18] 16 BP: (84-119)/(56-70) 91/61 FiO2 (%): [21 %] 21 % Physical Exam Physical Exam GENERAL:Alert and orientated, cooperative, in no acute distress. HEENT:Normal conjunctiva, no scleral icterus, mucous membranes- moist, no oral thrush, no sinus tenderness. CVS:Regular rhythm, normal rate, normal S1/S2, no murmur. RESPIRATORY: Normal breath sounds,clear on auscultation, no wheezing or rales. GASTROINTESTINAL:Normal BS. Abdomen-soft, non tender and distended. MUSCULOSKELETAL:Extremities symmetric without pedal edema. INTEGUMENTARY:Warm, no rashes or cyanosis. NEUROLOGIC:Non-focal. Cranial nerves II-XII grossly intact. 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 year-old female who has past medical history of anxiety/depression, CHF, type 2 diabetes, hypertension, decompensated cirrhosis secondary to GOOD, hepatic encephalopathy who presents to [facility] on 05/24/2025 from [facility] for further management of sepsis. Was having diarrhea, fever, diffuse abdominal pain for about 3 days ago. Diarrhea associated with abdominal pain and fever Sepsis Lactic acidosis E coli bacteremia -suspect GI source . UA -negative. -continue zosyn -blood cultures at OSH -positive -repat cultures from -[facility] Anemia, megaloblastic Thrombocytopenia, chronic -hb trending down. No active bleeding. Will get repeat HB . -continue to monitor with daily lab Decompensated cirrhosis Chronic hyponatremia MELD 3.0: 25 at 05/25/2025 2:38 AM MELD-Na: 25 at 05/25/2025 2:38 AM Calculated from: Serum Creatinine: 0.92 mg/dL (Using min of 1 mg/dL) at 05/25/2025 2:38 AM Serum Sodium: 128 mmol/L at 05/25/2025 2:38 AM Total Bilirubin: 3.7 mg/dL at 05/25/2025 2:38 AM Serum Albumin: 2.4 g/dL at 05/25/2025 2:38 AM INR(ratio): 1.8 at 05/25/2025 2:38 AM Age at listing (hypothetical): 54 years Sex: Female at 05/25/2025 2:38 AM -HE; no present on admission. Hold lactulose given diarrhea -Ascites; mild ascites. -EV: hold home meds given hypotension -consulted liver tpx and GI . Appreciate recs. Diffuse colonic edema concerning for colitis vs hepatic colopathy -given fever, acute diarrhea , CT findings, concerning for infectious colitis but lactic acid is also elevated concerning for ischemic colitis as well but lactic acid improved with iv hydration -consult Tpx -will consult GI in am. -continue iv fluids -continue to have diarrhea. Will recheck c diff and GI panel DM -Home meds; Jardiance, insulin, GLP 1 -inpt regimen: ISS Anxiety and depression - On BuSpar 10 mg daily GERD - Continue home PPI #HTN #CHF - Per chart per chart review, echo on 10/31/2024 noted EF of 55-60% systolic pressure of pulmonary arteries is mildly increased with peak pressure to systolic by Doppler is 34.8 mm Hg - resume lower dose of home metoprolol # Hyperlipidemia - Holding simvastatin in setting of worsening LFTs/transaminitis # Restless leg - On ropinirole 1 mg daily Obesity - Body mass index is 36.82 kg/m??. - complicates all aspects of care Diet:advance to soft diet. DVT prophylaxis:hold given hb trending down Code status:full code Disposition:home Follow up: Medically Ready for Discharge:Anticipated in 2-4 Days Alison Burns MD [facility]. Prefer secure chat/ [phone] * Clinician Note - Alexsander Robledo - 05/25/2025 11:36 AM EST Physical Therapy Attempt Patient Name: Avis Pemberton Today's Date: 05/25/2025 Patient was attempted to be seen by physical therapy 05/25/2025 for PT Evaluation however provider at bedside. Physical therapy team will follow-up as schedule permits. Written by Alexsander Robledo on 05/25/25 at 12:04 PM. * Progress Notes - Betzaida Bardales - 05/25/2025 11:23 AM EST Case Management Adult Initial Progress Note Avis Pemberton 54 y.o. female CSN: [id number] Admission: 05/24/2025 3:09 AM Primary Problem: Sepsis, due to unspecified organism, unspecified whether acute organ dysfunction present Flash Ranging Crewmember reviewed chart and spoke with patient to complete this Initial Case Management Assessment. 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 Insurance: Primary Visit Coverage Payer Plan Sponsor Code Group Number Group Name [employer] MEDICAID [employer] [place] Primary Visit Coverage Subscriber Subscriber ID Subscriber Name Subscriber SSN Subscriber Address [id number] AVIS PEMBERTON [id number] [place] [address] Patient information: Primary Caregiver: Self Support System: Immediate family Daily Living Activities: Functional Status: Independent Living Arrangements: Family (lives with sister) Type of Residence: Single Level [address] [place] [address] Current DME: Equipment Currently Used at Home: Cpap Current DME Provider: [employer] Income Information: Income Source: Government aid Housing Circumstances-Z Codes: Housing Circumstances (select all that apply): Low Income (101-300% Federal Poverty Guidlines) - Z596 Patient's Discharge Goal: Patient/Family Anticipates Transition to: home with family, home Assistance Available at Discharge: Current Outpatient/Agency/Support Group: clinic(s), DME Availability of Care Givers (#Hours): 24 hours Discharge Transport: Transportation Anticipated: family or friend will provide Follow Up Transport: Transportation Needed to Follow up Appoinments: Family/Friend will Provide Home Health / Home Infusion / Outpatient Dialysis Services: None reported. Living Will/Advance Directive/Power of Perfume Maker /Guardian: Unable to assess: No Have you reviewed your Advance Directive and is it valid for this stay?: Not applicable Advance Directive: Patient does not have advance directive Information Provided on Healthcare Directives: Yes (HAYDEE ANGEL provided patient with Five Wishes and Living Will paperwork) Pre-existing DNR/DNI Order: No Patient Requests Assistance: No Betzaida Bardales * Consults - Ryan Beth MD - 05/25/2025 9:32 AM ESTAssociated Order(s): Inpatient consult to gastroenterology Inpatient consult to gastroenterology Consult performed by: Ryan Beth MD Consult ordered by: Alison Burns MD Reason for consult: Decompensated cirrhosis History of Present Illness The patient is a 54-year-old female who presents for evaluation of cirrhosis. She has been diagnosed with cirrhosis, initially suspected to be due to metabolic associated liver disease related to abdominal obesity, diabetes, and hyperlipidemia. However, Dr. Johns suggested last Wednesday that it might be from primary biliary cholangitis. She has had 2 or [address] Johns at [facility], the most recent being last Wednesday. During her first visit on 04/03/2025, she was advised against living alone, prompting her to move in with her sister in [place]. She reports no history of hematemesis or melena. An upper endoscopy performed in 12/2024 revealed gastric antral vascular ectasia (GAVE), for which she underwent argon plasma coagulation (APC) treatment. This was her second encounter with GAVE, the first being in 2022, during which she experienced some bleeding. Currently, she does not report any symptoms of hematemesis or melena. She is not on carvedilol. She is currently under evaluation for a liver transplant, with several appointments scheduled for the upcoming Wednesday. She experienced diarrhea on Wednesday night and all day Wednesday, could not eat or drink anything, and then developed pain across her stomach. Following advice from a nurse line, she went to [facility] in [place], where an ultrasound revealed little pockets of fluid. Unable to sample the fluid, she was transferred to the current facility. She was started on IV abx She is still experiencing abdominal pain and started passing a lot of bowel movements again last night. She restarted Xifaxan but not lactulose due to the diarrhea. A stool sample given yesterday in the ER was not tested for C. difficile because it was not watery. She was advised to provide anothersample if diarrhea continues. She experiences abdominal distension and is currently on a regimen of spironolactone 200 mg daily and Bumex 2 mg daily. She has never undergone paracentesis. In 2022, she was diagnosed with ascites and was admitted for intravenous diuretic therapy, which proved beneficial. She has no history of spontaneous bacterial peritonitis (SBP) and has not been on long-term oral antibiotics. She is on lactulose and rifaximin, which result in 3 to 4 bowel movements daily. ROS All systems reviewed and negative unless otherwise noted in HPI. Past Medical History[1] Surgical History[2] Family History[3] Social History[4] Objective Vitals: 05/25/25 0337 05/25/25 0731 05/25/25 0732 05/25/25 0913 BP: 116/70 84/56 90/59 109/69 BP Location: Right arm Right arm Left arm Patient Position: Lying Lying Sitting Pulse: 101 88 87 99 Resp: 18 16 Temp: 36.8 ??C (98.2 ??F) 36.6 ??C (97.9 ??F) TempSrc: Oral Oral SpO2: 93% 94% Weight: Height: BMI: Body mass index is 36.82 kg/m??. Physical Exam: General Awake, NAD Eyes EOMI, sclera anicteric Head NC/AT CV Warm and well perfused RES Equal chest rise, normal effort on room air GI Abdominal distension. No rebound, guarding. DIEGO AAOx4. No gross deficits. EXT No cyanosis. No edema Skin No visible skin lesions I/O: I/O last 3 completed shifts: In: 734 (7.5 mL/kg) [P.O.:634; IV Piggyback:100] Out: - (0 mL/kg) Weight: 97.3 kg No intake/output data recorded. Labs: Basic Labs Lab Results Component Value Date WBC 10.02 05/25/2025 HGB 9.4 (L) 05/25/2025 PLT 53 (L) 05/25/2025 INR 1.8 (H) 05/25/2025 APTT 41 (H) 05/24/2025 NA 128 (L) 05/25/2025 BUN 23 (H) 05/25/2025 CREATININE 0.92 05/25/2025 EGFR 73.7 05/25/2025 AST 61 (H) 05/25/2025 ALT 47 (H) 05/25/2025 ALKPHOS 132 (H) 05/25/2025 BILITOT 3.7 (H) 05/25/2025 ALBUMIN 2.4 (L) 05/25/2025 TP 5.2 (L) 05/25/2025 AMYLASE 25 (L) 05/18/2025 LIPASE 29 05/24/2025 CRP 26.7 (H) 05/24/2025 MELD Score MELD 3.0: 25 at 05/25/2025 2:38 AM MELD-Na: 25 at 05/25/2025 2:38 AM Calculated from: Serum Creatinine: 0.92 mg/dL (Using min of 1 mg/dL) at 05/25/2025 2:38 AM Serum Sodium: 128 mmol/L at 05/25/2025 2:38 AM Total Bilirubin: 3.7 mg/dL at 05/25/2025 2:38 AM Serum Albumin: 2.4 g/dL at 05/25/2025 2:38 AM INR(ratio): 1.8 at 05/25/2025 2:38 AM Age at listing (hypothetical): 54 years Sex: Female at 05/25/2025 2:38 AM Liver Workup Lab Results Component Value Date JEANNIE Detected (H) 05/18/2025 MITOCHONDRIA 23.6 05/18/2025 SMOOTHMUSCAB 1:20 (H) 05/18/2025 IGG 1,747 (H) 04/03/2025 IGA 838 (H) 04/03/2025 IGM 197 04/03/2025 CYTOPLASMPA AMA (A) 05/18/2025 CYTOPLASMTI 1:80 (A) 05/18/2025 CERULOPLSM 32 05/18/2025 AAT 129 05/18/2025 [id number] M1Z 05/18/2025 IRON 171 (H) 05/18/2025 FERRITIN 1,200 (H) 05/18/2025 TIBC 220 (L) 05/18/2025 TRANSFERNSAT 78 (H) 05/18/2025 HGBA1C 5.4 05/18/2025 CHOL 216 (H) 05/18/2025 LDLCALC 115 (H) 05/18/2025 HECG Negative 04/03/2025 HEPBSAG Negative 04/03/2025 HEPBCAB Negative 05/18/2025 HEPATITBSAB <8.00 04/03/2025 HAG Negative 04/03/2025 HEPAIGM NEGATIVE Reference Value: Negative 09/08/2019 ACTMNPHEN Negative 05/18/2025 AFP 5.9 05/18/2025 Imaging: CT at OSH showed diffuse colonic wall thickening concerning for infectious colitis vs portal colopathy. Procedures OSH EGD performed 12/15/[address] Grant showed the larynx was normal. A non-obstructing Schatzki ring was found at the gastroesophageal junction. A 2 cm hiatal hernia was present. A medium amount of food (residue) was found in the gastric body. Mild gastric antral vascular ectasia without bleeding was present in the gastric antrum. Coagulation for bleeding prevention using argon plasma was successful.The examined duodenum was normal. OSH Colonoscopy performed 07/31/[address] Grant showed digital rectal examinations were normal. 2 sessile polyps were found in the ascending colon. Resection and retrieval were complete. Multiple small mouth diverticula were found in the sigmoid colon. Nonbleeding internal hemorrhoids were found during retroflexion. Recommendation to repeat in 5 years for surveillance. Medications (scheduled): Current Scheduled Medications[5] Medications (continous): Current Continuous Medications[6] Medications (PRN): Current PRN Medications[7] Assessment and Plan Avis Pemberton is a 54 y.o. female with on whom we were consulted for management of cirrhosis. # Sepsis of unclear source Presentation with abdominal pain, diarrhea, fever and leukocytosis. Patient received broad-spectrumIV antibiotics with improvement. Outside hospital CT imaging notable for colitis source of infection a GI PCR is negative and C.diff not sent due to formed stool. Bcx sent here and pending. 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 JEANNIE+. AMA -/ASMA-. A1AT normal (MZ). Viral hepatitis -. Ascites: Present. On Aldactone and Bumex Hepatic encephalopathy: Prior history. 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 SBP: No history HCC: no masses on recent CT. AFP normal. Plan: Ascites Sodium restriction <2g/day Hold diuretics in setting of sepsis Monitor for electrolyte disturbances, renal function Hepatic Encephalopathy Hold Lactulose for now given presence of diarrhea Continue rifaximin Nutritional support: 1.25 g/kg protein/day, nighttime snack Varices/Variceal Bleeding No prior hx of variceal bleeding. Will continue to monitor Hgb trend, if significantly down-ternding, will plan for inpatient EGD. Spontaneous Bacterial Peritonitis No prior hx of SBP. Diagnostic paracentesis if pocket is identifiable Transplant Evaluation Undergoing liver transplant evaluation Staffed w/ attending: Dr Johns Thank you for allowing us to participate in this patient's care. Please do not hesitate to call or page with questions or concerns. Ryan Beth MD PGY-4 Gastroenterology Fellow [facility] [1] Past Medical History: Diagnosis Date Anemia Anisocoria Arthritis Cataract CHF (congestive heart failure) Diabetes mellitus 2019 History of transfusion Hypertension 2018 Iritis Iritis Migraine Osteomyelitis of vertebra, site [...] OTHER SURGICAL HISTORY N/A Exploratory Laparotomy from [facility] [employer] OVARIAN CYST DRAINAGE N/A Aspiration Of Ovarian Cyst from [facility] TOTAL ABDOMINAL HYSTERECTOMY N/A 2011 Hysterectomy from [facility] [3] Family History Problem Relation Name Age [...] Heart attack Paternal Grandmother Hypertension Paternal Grandfather [4] Social History Tobacco Use Smoking status: Former Current packs/day: 0.00 Average packs/day: 0.1 packs/day for 10.6 years (1.1 ttl pk-yrs) Types: Cigarettes Start date: 2011 Quit date: 02/2022 Years since quittin.2 Passive exposure: Past Smokeless tobacco: Never Vaping Use Vaping status: Never Used Substance Use Topics Alcohol use: Not Currently Comment: not drinking since 2017 Drug use: Not Currently Types: Marijuana Comment: May 2024 last used [5] busPIRone, 7.5 mg, Oral, BID insulin lispro, 0-5 Units, Subcutaneous, TID with meals insulin lispro, 0-3 Units, Subcutaneous, Twice at night metoprolol tartrate, 12.5 mg, Oral, BID pantoprazole, 40 mg, Oral, Daily piperacillin-tazobactam, 3.375 g, Intravenous, q6h pregabalin, 25 mg, Oral, Nightly rifAXIMin, 550 mg, Oral, BID rOPINIRole, 1 mg, Oral, TID sodium chloride, 10 mL, Intravenous, q12h valACYclovir, 500 mg, Oral, q AM zinc sulfate, 220 mg, Oral, BID [6] sodium chloride, 75 mL/hr, Last Rate: 75 mL/hr (05/24/25 2342) [7] PRN medications: cyclobenzaprine, glucose OR dextrose 10 % OR dextrose 10 % OR glucagon (human recombinant), hydrOXYzine pamoate, ondansetron ODT OR ondansetron OR ondansetron, oxyCODONE, Insert peripheral IV AND Saline lock IV AND sodium chloride AND sodium chloride Cosigned by Nj Johns MD at 05/27/2025 7:22 AM EST Associated attestation - Nj Johns MD - 05/27/2025 7:22 AM EST I saw and evaluated the patient with the resident/fellow. I discussed the case with the resident/fellow and agree with the findings and plan as documented. Nj Johns MD * Significant Event - Alison Burns MD - 05/24/2025 7:22 PM EST Avis Pemberton is a 54 y.o. year-old female who has past medical history of anxiety/depression, CHF, type 2 diabetes, hypertension, decompensated cirrhosis secondary to GOOD, hepatic encephalopathy who presents to [facility] on 05/24/2025 from [facility] for further management of sepsis. Was having diarrhea, fever, diffuse abdominal pain for about 3 days ago. Diarrhea associated with abdominal pain and fever Sepsis Anemia, megaloblastic Thrombocytopenia, chronic Decompensated cirrhosis Chronic hyponatremia Lactic acidosis Diffuse colonic edema concerning for colitis vs hepatic colopathy -given fever, acute diarrhea , CT findings, concerning for infectious colitis but lactic acid is also elevated concerning for ischemic colitis as well but lactic acid improved with iv hydration -consult Tpx -will consult GI in am. -continue iv fluids -continue zosyn -start full liquid diet. Alison Burns MD [facility]. Prefer secure chat/ [phone] * Consults - Flaca Early APRN, DNP - 05/24/2025 10:46 AM ESTAssociated Order(s): Inpatient consult to Transplant Surgery(Renal,Liver) Inpatient consult to Transplant Surgery(Renal,Liver) Consult performed by: Flaca Early APRN, DNP Consult ordered by: Alison Burns MD Abdominal Transplant Surgery Consult Note CHIEF COMPLAINT: abdominal pain Consult Reason: pt undergoing outpatient eval for liver transplant. HISTORY OF PRESENT ILLNESS: Ms. Avis Pemberton is a 54 YO F with decompensated MASH cirrhosis who has been undergoing transplant evaluation, presented to the ED overnight by way of EMS from and OSH with c/o abdominal pain. She presented to the OSH with c/o generalized abdominal pain and diarrhea x1 day. WBC was increased to 18K, with MELD 26. She was given a fluid bolus, started on zosyn and vanc, and transferred for higher level of care. She reports a Tmax of 103.1 at home before presenting to the hospital. Pt with outpatient ECHO, NM Stress and PFTs scheduled for tomorrow to complete evaluation tesitng. Pt also to f/up with Dr. Cervantes in psychiatry. PAST MEDICAL HISTORY Past Medical History[1] PAST MEDICAL HISTORY Surgical History[2] FAMILY MEDICAL HISTORY Family History[3] SOCIAL HISTORY Social History Socioeconomic History Marital status: Spouse name: Not on file Number of children: Not on file Years of education: Not on file Highest education level: Not on file Occupational History Not on file Tobacco Use Smoking status: Former Current packs/day: 0.00 Average packs/day: 0.1 packs/day for 10.6 years (1.1 ttl pk-yrs) Types: Cigarettes Start date: 2011 Quit date: 02/2022 Years since quittin.2 Passive exposure: Past Smokeless tobacco: Never Vaping Use Vaping status: Never Used Substance and Sexual Activity Alcohol use: Not Currently Comment: not drinking since 2017 Drug use: Not Currently Types: Marijuana Comment: May 2024 last used Sexual activity: Not on file Other Topics Concern Not on file Social History Narrative Not on file Social Drivers of Health Financial Resource Strain: Low Risk (07/24/2022) Received from [facility] Overall Financial Resource Strain (CARDIA) Difficulty of Paying Living Expenses: Not hard at all Food Insecurity: No Food Insecurity (07/24/2022) Received from [facility] Hunger Vital Sign Within the past 12 months, you worried that your food would run out before you got the money to buymore.: Never true Within the past 12 months, the food you bought just didn't last and you didn't have money to get more.: Never true Transportation Needs: No Transportation Needs (07/24/2022) Received from [facility] PRAPARE - Transportation Lack of Transportation (Medical): No Lack of Transportation (Non-Medical): No Physical Activity: Inactive (07/23/2022) Received from [facility] Exercise Vital Sign On average, how many days per week do you engage in moderate to strenuous exercise (like a brisk walk)?: 0 days On average, how many minutes do you engage in exercise at this level?: 0 min Stress: No Stress Concern Present (07/24/2022) Received from [facility] [employer]ational [employer] - Occupational Stress Questionnaire Feeling of Stress : Not at all Social Connections: Unknown (04/19/2023) Received from [facility] Family and Community Support Help with Day-to-Day Activities: Not on file Lonely or Isolated: Not on file Intimate Partner Violence: Unknown (04/19/2023) Received from [facility] Abuse Screen Unsafe at Home or Work/School: Not on file Feels Threatened by Someone?: Not on file Does Anyone Keep You from Contacting Others or Doint Things Outside the Home?: Not on file Physical Sign of Abuse Present: Not on file Housing Stability: Unknown (04/19/2023) Received from [facility] Housing Stability Potentially Unsafe Housing Conditions: Not on file Current Living Arrangements: Not on file ALLERGIES Allergies[4] REVIEW OF SYSTEMS Review of Systems Constitutional: Positive for fever. Gastrointestinal: Positive for abdominal distention and abdominal pain. PHYSICAL EXAM GENERAL: Adult female, lying on stretcher. EYES: PERRL + scleral icterus HENT: No lesions in anterior nares; no lesions in oropharynx, head atraumatic and normocephalic NECK: Supple. No thyromegaly or adenopathy. No JVD noted. The trachea appears midline. RESP: Symmetric expansion; no retractions. Clear to auscultation bilaterally. CARD: RRR, without appreciable murmur, rubs, or gallop. Extremities: no LE edema, no cyanosis or clubbing. Pulses palpable x4. GI: No organomegaly or masses. Tender distended. Soft BS present x 4 quadrants. SKIN: No rash, sores, lesions or subcutaneous nodules. NEURO: GCS 15 MEDICATIONS Medications Ordered Prior to Encounter[5] LABS 0 Lab Value Date/Time WBC 14.23 (H) 05/24/2025 0339 WBC 6.16 05/18/2025 0847 WBC 8.8 04/19/2025 0000 WBC 9.3 04/11/2025 0000 WBC 9.16 04/03/2025 0638 WBC 4.20 02/22/2024 0730 WBC 7.58 12/13/2020 1413 WBC 4.80 09/13/2020 1406 WBC 5.05 02/26/2020 1511 WBC 4.68 11/14/2019 1003 WBC 4.47 09/08/2019 1359 Lab Results Component Value Date GLUCOSE 145 (H) 05/24/2025 CALCIUM 8.6 (L) 05/24/2025 NA 128 (L) 05/24/2025 K 5.1 (H) 05/24/2025 CO2 22 05/24/2025 CL 97 05/24/2025 BUN 20 05/24/2025 CREATININE 0.93 05/24/2025 Visit Vitals BP 106/57 Pulse 118 Temp 36.8 ??C (98.3 ??F) Ht 1.626 m (5' 4 ) Wt 97.3 kg (214 lb 8.1 oz) SpO2 99% BMI 36.82 kg/m?? MELD 3.0: 25 at 05/24/2025 3:39 AM MELD-Na: 25 at 05/24/2025 3:39 AM Calculated from: Serum Creatinine: 0.93 mg/dL (Using min of 1 mg/dL) at 05/24/2025 3:39 AM Serum Sodium: 128 mmol/L at 05/24/2025 3:39 AM Total Bilirubin: 5.5 mg/dL at 05/24/2025 3:39 AM Serum Albumin: 2.7 g/dL at 05/24/2025 3:39 AM INR(ratio): 1.6 at 05/24/2025 3:39 AM Age at listing (hypothetical): 54 years Sex: Female at 05/24/2025 3:39 AM ASSESSMENT Ms. Avis Pemberton is a 54 YO F with decompensated [facility] cirrhosis who has been undergoing transplant evaluation, presented to the ED overnight by way of EMS from and OSH with c/o abdominal pain. Leukocytosis - WBC 14.2 from baseline of 6K - recommend full infectious workup including paracentesis with fluid cell count and GS/culture. - remains on empiric zosyn. Abdominal Pain Decompensated [facility] cirrhosis - MELD 3.0: 25 per labs 05/24/25, ABO A+ - Please consult GAS/Liver as they follow her in [facility] Hepatology for cirrhosis management. - Pt with scheduled NM Stress, PFT and ECHO with bubble for 05/25, will cancel and reschedule during her inpatient visit when condition allows. Pt remains not socially cleared pending f/up with Dr. Cervantes outpatient and needs to complete outpatient mammography and pap-smear. Low Vitamin D - 18.9, will need ergocalciferol course post OLT. Patient educated on transplant surgery evaluation process, listing, surgery time and expectations for follow-up and immunosuppressive medications. I spent 40 minutes chart review, counseling patient/family regarding diagnosis, prognosis, and treatment plan (including risks and benefits), and discussing case with care team members and formulating the plan. [1] Past Medical History: Diagnosis Date Anemia Anisocoria Arthritis Cataract CHF (congestive heart failure) Diabetes mellitus 2020 History of transfusion Hypertension 2018 Iritis Iritis Migraine Osteomyelitis of vertebra, site unspecified (CMS/HCC) Spinal abscess Personal history of other diseases of the female genital tract History of ovarian cyst Unspecified cirrhosis of liver (CMS/HCC) Non-alcoholic cirrhosis [2] Past Surgical History: Procedure Laterality Date APPENDECTOMY BACK SURGERY N/A 1994 BACK SURGERY 2009 BREAST SURGERY N/A Breast Surgery Reduction Procedure Bilateral from [facility] EXPLORATORY LAPAROTOMY GALLBLADDER SURGERY 2018 GANGLION CYST EXCISION, WRIST Left INCISION AND DRAINAGE, ABCESS 2010 from back LIVER BIOPSY OTHER SURGICAL HISTORY N/A Exploratory Laparotomy from [facility] OVARIAN CYST DRAINAGE N/A Aspiration Of Ovarian Cyst from [facility] TOTAL ABDOMINAL HYSTERECTOMY N/A 2011 Hysterectomy from [facility] [3] Family History Problem Relation Name Age [...] Heart attack Paternal Grandmother Hypertension Paternal Grandfather [4] Allergies Allergen Reactions Povidone Iodine Itching and Rash With Betadine (topical). Sulfa Drugs Hives Vortioxetine Itching and Rash Wound Dressing Adhesive Other - please document in the comment field Breaks out where skin comes in contact with adhesive. Prevents wound healing if over a wound (e.g.,incision opened up where covering incision from breast reduction surgery). [5] No current facility-administered medications on file prior to encounter. Current Outpatient Medications on File Prior to Encounter Medication Sig Dispense Refill baclofen (Lioresal) 10 MG tablet Take 1 tablet by mouth nightly. (Patient not taking: Reported on 05/18/2025) 30 tablet 0 bumetanide (Bumex) 1 MG tablet Take 2 tablets by mouth 2 times a day. busPIRone (Buspar) 7.5 MG tablet Take 1 tablet by mouth 2 times a day. cyclobenzaprine (Flexeril) 10 MG tablet Take 1 tablet by mouth 3 times a day as needed for muscle spasms. desvenlafaxine (Pristiq) 100 MG 24 hr tablet Take 50 mg by mouth daily. diclofenac (Voltaren) 1 % topical gel Place 2 g on the skin 4 times a day as needed (joint pain). diphenhydrAMINE (Benadryl) 50 MG tablet - 50 mg PO [address] prior to [address] scan on 05-25-25 1 tablet0 ergocalciferol (Vitamin D-2) 1.25 MG (30861 UT) capsule Take 1 capsule by mouth 1 time per week. Take on Tuesdays. FeroSul 325 (65 Fe) MG tablet Take 1 tablet by mouth nightly. hydrOXYzine pamoate (Vistaril) 25 MG capsule Take 1 capsule by mouth 3 times a day as needed for itching. insulin glargine (Lantus SoloStar) 100 UNIT/ML injection pen Inject 20 Units under the skin every morning. Jardiance 25 MG Take 1 tablet by mouth daily. lactulose (Chronulac) 10 GM/15ML oral solution Take 15 mL by mouth 2 times a day. lansoprazole (Prevacid) [address] capsule Take 1 capsule by mouth daily. lisinopril 2.5 MG tablet Take 1 tablet by mouth daily. metoprolol succinate XL (Toprol-XL) 50 MG 24 hr tablet Take 1 tablet by mouth daily. NovoLOG FLEXPEN 100 UNIT/ML injection pen Inject 5 Units under the skin 3 times a day as needed forhigh blood sugar (for BG > 150). ondansetron ODT (Zofran-ODT) 8 MG disintegrating tablet [...] tablet by mouth 2 times a day. predniSONE (Deltasone) 50 MG tablet 50 mg PO, 13, 7, and [address] Scan on 05-25-25. 3tablet 0 pregabalin (Lyrica) 25 MG capsule Take 1 capsule by mouth daily. promethazine (Phenergan) 25 MG tablet Take 1 tablet by mouth 3 times a day as needed for nausea or vomiting (if not helped by ondansetron). rifAXIMin (Xifaxan) 550 MG tablet Take 1 tablet by mouth 2 times a day. Rimegepant Sulfate (Nurtec) 75 MG tablet dispersible Dissolve 1 tablet on the tongue daily as needed (migraine headache). rOPINIRole (Requip) 1 MG tablet Take 1 tablet by mouth 4 times a day. simvastatin (Zocor) 20 MG tablet Take 1 tablet by mouth nightly. spironolactone (Aldactone) 100 MG tablet Take 1.5 tablets by mouth daily. valACYclovir (Valtrex) 500 MG tablet Take 1 tablet by mouth every morning. zinc sulfate (Zincate) 220 (50 Zn) MG capsule Take 1 capsule by mouth 2 times a day. 240 capsule 2 [DISCONTINUED] BD Pen Needle Candie Ultrafine 32G X 4 MM misc 2 times a day. [DISCONTINUED] Blood Glucose Monitoring Suppl (FreeStyle Lite) w/Device kit use DIRECTED TO check BLOOD GLUCOSE THREE TIMES DAILY [DISCONTINUED] Continuous Glucose Sensor (ZoopShopcom G7 Sensor) misc USE TO MONITOR BLOOD SUGAR DIRECTED. CHANGE SENSOR EVERY 10 DAYS. [DISCONTINUED] Easy Touch Lancets 30G misc 3 times a day. as directed [DISCONTINUED] Embecta Insulin Syr Ultrafine 31G X 15/64 1 ML misc USE TO INJECT INSULIN EVERY MORNING DIRECTED [DISCONTINUED] hydrOXYzine HCl (Atarax) 25 MG tablet Take 1 tablet by mouth daily as needed. (Patient not taking: Reported on 05/18/2025) [DISCONTINUED] metoprolol succinate XL (Toprol-XL) 50 MG 24 hr tablet Take 2 tablets by mouth daily. [DISCONTINUED] ondansetron (Zofran) 4 MG tablet Take 1 tablet by mouth every 8 hours as needed. [DISCONTINUED] OneTouch Verio test strip Use 3 per day. Code E11.65 [DISCONTINUED] pantoprazole (Protonix) 40 MG EC tablet Take 1 tablet by mouth daily. (Patient not taking: Reported on 05/18/2025) [DISCONTINUED] predniSONE (Deltasone) 50 MG tablet 50 mg PO, 13, 7, and [address] Scanon 05-25-25. 3 tablet 0 [DISCONTINUED] zinc sulfate (Zincate) 220 (50 Zn) MG capsule Take 1 capsule by mouth 2 times a day.240 capsule 2 * Care Plan - Tracy Tillman RN - 05/24/2025 9:40 AM EST Problem: Adult Inpatient Plan of Care Goal: Plan of Care Review Flowsheets (Taken 05/24/2025 0938) Progress: improving Plan of Care Reviewed With: patient Goal: Patient-Specific Goal (Individualized) Flowsheets (Taken 05/24/2025 0938) Patient/Family-Specific Goals (Include Timeframe): Patient will maintain adequate tissue perfusion and demonstrate stable vitals signs within 48 hours of initiating treatment. * H&P - Mannie Alves APRN, DNP - 05/24/2025 4:35 AM ESTAssociated Order(s): Consult to [facility] Images from the original note were not included. Consult to [facility] Consult performed by: Mannie Alves, CYDNEY, DNP Consult ordered by: Abdoul Rouse MD Reason for consult: Decompensated cirrhosis Chief Complaint: Abdominal pain History of Present Illness: Avis Pemberton is a 54 y.o. 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 Patient reports worsening generalized abdominal pain, intensity 9/10, nausea, intolerance to Po intake, fatigue, progressive diarrhea with more than 10 episodes, that started on Wednesday night. She also reports fever up to 103F as well as intermittent confusion on Wednesday, prompting her presentation to outside hospital. On presentation to outside hospital, noted to be tachycardic and warm to touch otherwise hemodynamically stable. Workup at outside hospital was significant for WBC of 18, sodium of 124, bilirubin 7.5, lipase 157, lactate 3.6, AST 114, ALT 97, platelet 87, PT 13.5, INR 1.[address] pelvis/abdomen reportedly showed nodular liver, splenomegaly, small amount of ascites, and mesenteric edema consistent with hepatic cirrhosis; diffuse edematous wall thickening throughout the colon concerning for colitis/portal colopathy. There was no biliary ductal dilation, normal pancreas. Chest x-ray noted patchy airspace disease at the left lung base consistent with atelectasis. Patient was given 1 liter LR bolus, and started on empirical IV antibiotics(vancomycin and Zosyn) and transferred for higher level of care and transplant/hepatology evaluation. Patient is currently undergoing workup for liver transplant, endorses compliance with daily medication lactulose. denies history of paracentesis, hematochezia, hematemesis, chest pain shortness of breaths. In the ED, patient is afebrile, GCS of 15, tachycardic to 126, otherwise hemodynamically stable. Initial labs were pertinent for WBC: 14.23 (H), CRP: 26.7 (H), neutrophil 12.03, with left shift, Lactate: 3.5 (H), platelets 53, hemoglobin 11.1, PT 19.4, now 1.6, sodium 128, potassium 5.1, elective 59, AST 78, total bilirubin 5.5, alkaline phosphate 141 Hospital Medicine was consulted and decision was made to admit for further workup and management Patient at bedside provided HPI, along with chart review. Review of Systems: Review of Systems Gastrointestinal: Positive for abdominal pain, diarrhea and nausea. Genitourinary: Positive for decreased urine volume. All other systems reviewed and are negative. Past Medical History: Past Medical History[1] Surgical History: Surgical History[2] Family History: Family History[3] Social History: She reports that she quit smoking about 3 years ago. Her smoking use included cigarettes. She started smoking about 13 years ago. She has a 1.1 pack-year smoking history. She has been exposed to tobacco smoke. She has never used smokeless tobacco. She reports that she does not currently use alcohol. She reports that she does not currently use drugs after having used the following drugs: Marijuana. Travel History: Relevant Travel History: Travel Screening Question Response Have you been in contact with someone who was sick? No / Unsure Do you have any of the following new or worsening symptoms? None of these Have you traveled internationally or domestically in the last month? No Travel History Travel since 04/23/25 No documented travel since 04/23/25 Allergies: Povidone iodine, Sulfa drugs, Vortioxetine, and Wound dressing adhesive Vital Signs: Visit Vitals BP 105/69 (BP Location: Right arm, Patient Position: Lying) Pulse (!) 126 Temp 36.7 ??C (98.1 ??F) (Oral) Resp 18 Ht 1.626 m (5' 4 ) Wt 97.3 kg (214 lb 8.1 oz) LMP (LMP Unknown) Comment: hysterctomy SpO2 95% BMI 36.82 kg/m?? OB Status Unknown Smoking Status Former BSA 2.1 m?? Physical Exam: General: well developed, well-nourished female who presents in no apparent distress Physical Exam HENT: Head: Normocephalic and atraumatic. Mouth/Throat: Mouth: Mucous membranes are moist. Eyes: Pupils: Pupils are equal, round, and reactive to light. Cardiovascular: Rate and Rhythm: Tachycardia present. Pulmonary: Effort: No respiratory distress. Breath sounds: No stridor. No wheezing or rhonchi. Abdominal: Palpations: Abdomen is soft. Tenderness: There is abdominal tenderness. There is no guarding or rebound. Musculoskeletal: General: No swelling or tenderness. Right lower leg: No edema. Left lower leg: No edema. Skin: Coloration: Skin is jaundiced. Neurological: General: No focal deficit present. Mental Status: She is oriented to person, place, and time. Labs (in last 24 hours): CBC: Lab Results Component Value Date WBC 14.23 (H) 05/24/2025 RBC 3.11 (L) 05/24/2025 HGB 11.1 (L) 05/24/2025 HCT 32.6 (L) 05/24/2025 PLT 53 (L) 05/24/2025 MCV 105 (H) 05/24/2025 MCH 35.7 (H) 05/24/2025 MCHC 34.0 05/24/2025 RDW 16.4 (H) 05/24/2025 NRBC 0.0 05/24/2025 Differential: Lab Results Component Value Date WBC 14.23 (H) 05/24/2025 NEUTOPHILPCT 84 05/24/2025 LYMPHOPCT 6 05/24/2025 MONOPCT 8 05/24/2025 EOSPCT 1 05/24/2025 Coagulation: Lab Results Component Value Date INR 1.6 (H) 05/24/2025 Renal: Lab Results Component Value Date NA 128 (L) 05/24/2025 K 5.1 (H) 05/24/2025 CL 97 05/24/2025 CO2 22 05/24/2025 BUN 20 05/24/2025 CREATININE 0.93 05/24/2025 GLUCOSE 145 (H) 05/24/2025 CALCIUM 8.6 (L) 05/24/2025 MG 1.9 05/24/2025 PHOS 2.9 05/24/2025 Liver: Lab Results Component Value Date AST 78 (H) 05/24/2025 ALT 59 (H) 05/24/2025 BILITOT 5.5 (H) 05/24/2025 Glucose: Lab Results Component Value Date PGLU 155 (H) 05/24/2025 PGLU 136 (H) 05/24/2025 Lab Results Component Value Date HGBA1C 5.4 05/18/2025 Microbiology: Results Procedure Component Value Units Date/Time Blood Culture (Aerobic/Anaerobet Set) [[id number]] Collected: 05/24/25404 Order Status: Sent Specimen: Blood, Venous Updated: 05/24/25410 Blood Culture (Aerobic/Anaerobet Set) [[id number]] Collected: 05/24/25404 Order Status: Sent Specimen: Blood, Venous Updated: 05/24/25410 Clostridiodes (Clostridium) difficile PCR [[id number]] Order Status: Sent Specimen: Stool from Rectum Comprehensive GI Panel by PCR [[id number]] Order Status: Sent Specimen: Stool from Rectum Imaging (in last 24 hours): Assessment and plan: Principal problem: Sepsis, due to unspecified organism, unspecified whether acute organ dysfunctionpresent - Principal Problem: Sepsis, due to unspecified organism, unspecified whether acute organ dysfunction present Avis Pemberton is a 54 y.o. 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 Problems # Sepsis - Likely intra-abdominal source(colitis versus portal colopathy; can not rule out bacterial translocation) - Presenting with fever 103??F, tachycardia, leukocytosis - lactate 3.6 -> 3.5 after fluids. - CT at OSH showed diffuse colonic wall thickening concerning for infectious colitis vs portal colopathy. - Small volume ascites - SBP cannot be fully excluded - Diarrhea >10 episodes concerning for infectious colitis including C diff, enteric bacterial, viral gastroenteritis - - - patient meets sepsis criteria - WBC: 14.23 (H), ??, CRP: 26.7 (H), Procal: ??,ESR:??,Lactate: 3.5 (H), - diffuse abdominal tenderness with no rebound or guarding - No peritonitic findings, no obvious fluid wave - ED give additional 1 L lactate bolus Plan: - Blood culture pending - Continue broad-spectrum IV antibiotics: Zosyn. - Hold vancomycin unless concern for MRSA arises. - C diff rule out, comprehensive GI panel pending - Trend lactate, WBC. - If ascites increases or patient clinically worsens, consider diagnostic paracentesis - Currently nothing by mouth - Pain management/antiemetics # Transaminitis with hyperbilirubinemia # hyponatremia- Concerning for cirrhosis related hypovolemic hyponatremia # Cirrhosis Decompensated by hepatic encephalopathy grade 2, ascites - Etiology unclear, possibly MASH, diagnosed 2018 during cholecystectomy - Reportedly mild steatosis on 2018 biopsy - Prior serologic workup +AMA 29.3, ASMA 1;20, IgG 1717, negative anti Sp 100 and anti-Gp210 - AST: 78 (H) , ALT: 59 (H), Alk Phos: 141 (H) , T.bili: 5.5 (H) - INR: 1.6 (H), APTT: 41 (H), PT: ??,Platelet: ?? - HCC: every 6 months, AFP: 5.9 on 05/18/2025, U/S liver 04/2024 without focal lesion - EV: Last surveillance EGD 12/15/2024 with non-obstructing schatzki ring, 2 cm hiatal hernia, nonbleeding GAVE s/p APC. - HE: On Rifaximin and Lactulose. Reportedly rifaximin no longer covered by insurance - No asterixis on exam. - Ascites: No prior paracentesis; on Bumex and spironolactone - Currently has/doesn't complain of abdominal pain. Abdomen was soft/rigid on exam. - MELD-Na: MELD 3.0: 25 at 05/24/2025 3:39 AM MELD-Na: 25 at 05/24/2025 3:39 AM Calculated from: Serum Creatinine: 0.93 mg/dL (Using min of 1 mg/dL) at 05/24/2025 3:39 AM Serum Sodium: 128 mmol/L at 05/24/2025 3:39 AM Total Bilirubin: 5.5 mg/dL at 05/24/2025 3:39 AM Serum Albumin: 2.7 g/dL at 05/24/2025 3:39 AM INR(ratio): 1.6 at 05/24/2025 3:39 AM Age at listing (hypothetical): 54 years Sex: Female at 05/24/2025 3:39 AM Plan - Consult transplant hepatology in the morning - Ammonia , Trend LFTs, - Avoid hepatotoxic agent/NSAID - Thrombocytopenia - Transfuse if actively bleeding and <50, or <20 - Hyponatremia - hold diuretics temporary given ongoing diarrhea with elevated lactate - Hold Lactulose - Consider Thiamine, Vitamin B complex daily - Nutrition consult - Urine sodium and osmolarity pending, #Macrocytic Normochromic Anemia - On admission : WRBC: 3.11 (L), Hgb 11.1 (L) HCT: 32.6 (L), MCV: 105 (H), MCHC:34.0, Plan: - , B12/Folate pending - Monitor and transfuse if hgb<7 Type II diabetes with hyperglycemia -Glucose: - Hemoglobin A1c: 5.4 05/18/2025 - Home medication: Jardiance, insulin aspart Plan - Continue home insulin regimen with lantus - FSBS AC/HS with correctional insulin - Monitor for hypoglycemia Chronic Anxiety and depression - On BuSpar 10 mg daily GERD - Continue home PPI #HTN #CHF - Per chart per chart review, echo on 10/31/2024 noted EF of 55-60% systolic pressure of pulmonary arteries is mildly increased with peak pressure to systolic by Doppler is 34.8 mm Hg - Holding home metoprolol in setting of sepsis # Hyperlipidemia - Holding simvastatin in setting of worsening LFTs/transaminitis # Restless leg - On ropinirole 1 mg daily Obesity - Body mass index is 36.82 kg/m??. - complicates all aspects of care Medications Home Medications Current Outpatient Medications Medication Instructions baclofen (LIORESAL) 10 mg, Oral, Nightly bumetanide (BUMEX) 2 mg, 2 times daily (0900 & 1500) busPIRone (Buspar) 7.5 MG tablet Take 1 tablet by mouth 2 times a day. cyclobenzaprine (FLEXERIL) 10 mg, 3 times daily PRN desvenlafaxine (PRISTIQ) 50 mg, Daily diclofenac (Voltaren) 1 % topical gel Place 2 g on the skin 4 times a day as needed (joint pain). diphenhydrAMINE (Benadryl) 50 MG tablet - 50 mg PO 1 hour prior to the CT scan on 05-25-25 ergocalciferol (VITAMIN D-2) 1.25 mg, Weekly FeroSul [...] ER tablet 20 mEq, 2 times daily predniSONE (Deltasone) 50 MG tablet 50 mg PO, 13, 7, and [address] prior to the CT Scan on 05-25-25. pregabalin (Lyrica) 25 MG capsule Take 1 [...] (ZINCATE) 220 mg, Oral, 2 times daily Scheduled: Current Scheduled Medications[4] Continuous: Current Continuous Medications[5] As needed: glucose, 15-30 grams of glucose, q15 min PRN Or dextrose 10 %, 125 mL, q15 min PRN Or dextrose 10 %, 250 mL, q15 min PRN Or glucagon (human recombinant), 1 mg, q15 min PRN ondansetron ODT, 4 mg, q6h PRN Or ondansetron, 4 mg, q6h PRN Or ondansetron, 4 mg, q6h PRN sodium chloride, 10 mL, PRN Fluids: lr Electrolytes: Continue to monitor and replace as appropriate Diet: NPO diet DVT prophylaxis: SCDs + SCDs only Code status: Full Code Follow-up visit Future Appointments Date Time Provider Department Center 05/25/2025 11:[address] 1 CTCHG [facility] 05/25/2025 2:00 PM FULL PFT - [facility] 05/25/2025 3:30 PM [facility] ECHO 2 ECHOCHG [facility] 05/31/2025 4:30 PM [facility] MAMMO 1 MAMMCHWHTNY [facility] 06/12/2025 2:30 PM Juana Gale APRN [facility] 06/20/2025 10:30 AM [facility] Davidson [facility] 06/21/2025 2:00 PM Claire Davidson MD [facility] 07/17/2025 8:[address] [facility] 07/17/2025 10:30 AM Nj Johns MD [facility] Mannie Alves APRN, DNP [1] Past Medical History: Diagnosis Date Anemia Anisocoria Arthritis Cataract CHF (congestive heart failure) Diabetes mellitus 2020 History of transfusion Hypertension 2018 Iritis Iritis Migraine Osteomyelitis of vertebra, site unspecified (CMS/HCC) Spinal abscess Personal history of other diseases of the female genital tract History of ovarian cyst Unspecified cirrhosis of liver (CMS/HCC) Non-alcoholic cirrhosis [2] Past Surgical History: Procedure Laterality Date APPENDECTOMY BACK SURGERY N/A 1994 BACK SURGERY 2010 BREAST SURGERY N/A Breast Surgery Reduction Procedure Bilateral from [facility] EXPLORATORY LAPAROTOMY GALLBLADDER SURGERY 2018 GANGLION CYST EXCISION, WRIST Left INCISION AND DRAINAGE, ABCESS 2010 from back LIVER BIOPSY OTHER SURGICAL HISTORY N/A Exploratory Laparotomy from [facility] OVARIAN CYST DRAINAGE N/A Aspiration Of Ovarian Cyst from [facility] TOTAL ABDOMINAL HYSTERECTOMY N/A 2011 Hysterectomy from [facility] [3] Family History Problem Relation Name Age [...] Heart attack Paternal Grandmother Hypertension Paternal Grandfather [4] insulin lispro, 0-5 Units, Subcutaneous, TID with meals insulin lispro, 0-3 Units, Subcutaneous, Twice at night piperacillin-tazobactam, 3.375 g, Intravenous, q6h sodium chloride, 10 mL, Intravenous, q12h [5] * ED Provider Notes - Abdoul Rouse MD - 05/24/2025 3:09 AM EST Images from the original note were not included. - HPI Chief Complaint Patient presents with Abdominal Pain Pt transferred from [facility] for generalized abdominal pain and nausea. Was trasferred here as patient is working on getting on liver transplant list. Avis Pemberton is a 54 y.o. female with a past medical history significant for Anxiety/Depression, CHF, T2DM, HTN, Cirrhosis secondary to GOOD, Hepatic Encephalopathy who presents today via EMS from OSH with Abdominal Pain. Pt presented to OSH c/o generalized abdominal pain and diarrhea x 1 day.OSH labs significant for WBC 18, INR 1.24, Sodium 124, Bilirubin 7.5, Lipase 159, lactate 3.6, AST 114, ALT 97 and MELD [address] Abdomen with concern for ascites. Pt given 1L boulus, zosyn, vanco and ultimately transferred to [facility] ED for higher level of care. Now in [facility] ED pt c/o diarrhea and nausea onset Wednesday. Also c/o generalized abdominal pain and fever onset yesterday, reports Tmax of 103.1 F at home before presenting to OSH. Reports she is currently getting worked up to be put on transplant list. Endorses compliance with daily medications, lactulose. Denies hx of paracentesis. Denies urinary sx, hematochezia, chills, CP, SOA, emesis. Patient has no other complaints at this time. History provided by: Patient and medical records special needs nanny used: No Patient History Past Medical History[1] Surgical History[2] Family History[3] Social History[4] Allergies: Allergies[5] Physical Exam ED Triage Vitals [05/24/25 0316] Temp Heart Rate Resp BP 36.7 ??C (98.1 ??F) (!) 126 18 105/69 SpO2 Temp Source Heart Rate Source Patient Position 95 % Oral Monitor Lying BP Location FiO2 (%) Right arm -- Physical Exam Vitals and nursing note reviewed. Constitutional: General: She is not in acute distress. Appearance: She is well-developed. HENT: Head: Normocephalic and atraumatic. Eyes: Conjunctiva/sclera: Conjunctivae normal. Cardiovascular: Rate and Rhythm: Regular rhythm. Tachycardia present. Pulses: Normal pulses. Heart sounds: Normal heart sounds. No murmur heard. Pulmonary: Effort: Pulmonary effort is normal. No respiratory distress. Breath sounds: Normal breath sounds. Abdominal: Palpations: Abdomen is soft. Comments: Minimal lower abdominal tenderness to palpation. No palpable fluid wave. Musculoskeletal: General: No swelling. Cervical back: Neck supple. Skin: General: Skin is warm and dry. Neurological: Mental Status: She is alert and oriented to person, place, and time. Psychiatric: Mood and Affect: Mood normal. Behavior: Behavior normal. Michael Coma Scale Score: 15 ED Course & MDM - Assessment: 54 y.o. female presents to ED with complaint of abdominal pain, fevers. Patient arrived as a transfer from [facility]. Chart was reviewed including progress note from Neurosurgery 05/22/2025, progress note 04/03/2025 transplant service, records brought with the patient from outside hospital, outside imaging studies. On arrival she is afebrile, mildly tachycardic with otherwise reassuring vital signs. Labs were repeated she has a leukocytosis to 14. Total bili 5.5. Sodium 128. Lactate downtrended a 3.5. We will continue IV fluid resuscitation I have ordered 1 L lactated her fingers. With fevers and associated diarrhea over the past few days stool studies have been ordered. Blo od cultures x2 have been ordered. I reviewed CT abdomen and pelvis from outside hospital on my interpretation of imaging she does have small ascites no amenable pockets for diagnostic paracentesis. She meets SIRS criteria with heart rate, leukocytosis. We will continue empiric IV antibiotic coverage. I have discussed with hospital medicine for admission. Differential Diagnosis: Sepsis, arrhythmia, anemia, liver cirrhosis, UTI, colitis, diarrheal illness, other Critical Care Additionally, I provided 35 minutes of critical care for sepsis, decompensated liver cirrhosis. Critical care time was exclusive of: Separately billable procedures and treating other patients andteaching time Critical care was time spent personally by me on the following activities: obtaining history from patient or surrogate examination of patient review of old charts development of treatment plan with patient or surrogate ordering and performing treatments and interventions ordering and reviewing lab studies evaluation of patients response to treatment discussion with consultants I assumed subsequent critical care for this patient from a provider in my division, on the same day: no In order to fully explore the differential diagnosis the following treatments and tests were ordered: ED Medication Administration from 05/24/2025 0101 to 05/24/2025 0508 Date/Time Order Dose Route Action 05/24/2025 0424 EST lactated Ringer's infusion 1,000 mL 1,000 mL Intravenous New Bag 05/24/2025 0425 EST piperacillin-tazobactam (Zosyn) 3.375 g in sodium chloride 0.9% 100 mL IVPB (vial adapter required) 3.375 g Intravenous New Bag 05/24/2025 0500 EST piperacillin-tazobactam (Zosyn) 3.375 g in sodium chloride 0.9% 100 mL IVPB (vial adapter required) 0 g Intravenous Stopped All Other Orders Ordered Status Ordering Provider 05/24/25 0508 CBC Morning draw Acknowledged LONG MANNIE N 05/24/25 0508 Basic metabolic panel Morning draw Acknowledged MADUMANDOBEBINA MANNIE N 05/24/25 0508 Phosphorus Morning draw Acknowledged MADUJIBEBINA MANNIE N 05/24/25 0508 Magnesium, Plasma Morning draw Acknowledged LONG MANNIE N 05/24/25 0508 PT/INR Morning draw Acknowledged MADUJIBEBINA MANNIE N 05/24/25 0508 Vital Signs Every 4 hours Placed in And Linked Group Acknowledged MEENAKSHIUMANDOBEBINA MANNIE N 05/24/25 0508 Pulse Oximetry Every 4 hours Placed in And Linked Group Acknowledged ALTAGRACIABEBINA MANNIE N 05/24/25 0508 Neuro checks Every 4 hours Acknowledged LONG MANNIE N 05/24/25 0508 POCT Glucose - Post Prandial 3 times daily after meals Comments: Check BG 2 hours after each meal. Order ID Start Status Ordering Provider [id number] 05/24/25 0707 Acknowledged MADUJIBEYA, MANNIE N 05/24/25 0900 Scheduled MADUJIBEYA, MANNIE N 05/24/25 1300 Scheduled MADUJIBEYA, MANNIE N 05/24/25 1900 Scheduled MADUJIBEYA, MNANIE N 05/25/25 0900 Scheduled MADUJIBEYA, MANNIE N 05/25/25 1300 Scheduled MADUJIBEYA, MANNIE N 05/25/25 1900 Scheduled MADUJIBEYA, MANNIE N 05/26/25 0900 Scheduled MADUJIBEYA, MANNIE N 05/26/25 1300 Scheduled MADUJIBEYA, MANNIE N 05/26/25 1900 Scheduled MADUJIBEYA, MANNIE N 05/27/25 0900 Scheduled MADUJIBEYA, MANNIE N 05/27/25 1300 Scheduled MADUJIBEYA, MANNIE N 05/27/25 1900 Scheduled MADUJIBEYA, MANNIE N 05/28/25 0900 Scheduled MADUJIBEYA, MANNIE N 05/28/25 1300 Scheduled MADUJIBEYA, MANNIE N 05/28/25 1900 Scheduled MADUJIBEYA, MANNIE N Acknowledged MADUJIBEYA, MANNIE N 05/24/25 0508 POCT Glucose - Before Meals and Bedtime 4 times daily before meals and at bedtime Order ID Start Status Ordering Provider [id number] 05/24/25 0700 Acknowledged MADUJIBEYA, MANNIE N 05/24/25 1100 Scheduled MADUJIBEYA, MANNIE N 05/24/25 1700 Scheduled MADUJIBEYA, MANNIE N 05/24/25 2200 Scheduled MADUJIBEYA, MANNIE N 05/25/25 0700 Scheduled MADUJIBEYA, MANNIE N 05/25/25 1100 Scheduled MADUJIBEYA, MANNIE N 05/25/25 1700 Scheduled MADUJIBEYA, MANNIE N 05/25/25 2200 Scheduled MADUJIBEYA, MANNIE N 05/26/25 0700 Scheduled MADUJIBEYA, MANNIE N 05/26/25 1100 Scheduled MADUJIBEYA, MANNIE N 05/26/25 1700 Scheduled MADUJIBEYA, MANNIE N 05/26/25 2200 Scheduled MADUJIBEYA, MANNIE N 05/27/25 0700 Scheduled MADUJIBEYA, MANNIE N 05/27/25 1100 Scheduled MADUJIBEYA, MANNIE N 05/27/25 1700 Scheduled MADUJIBEYA, MANNIE N 05/27/25 2200 Scheduled MADUJIBEYA, MANNIE N 05/28/25 0700 Scheduled MADUJIBEYA, MANNIE N 05/28/25 1100 Scheduled MADUJIBEYA, MANNIE N 05/28/25 1700 Scheduled MADUJIBEYA, MANNIE N 05/28/25 2200 Scheduled MADUJIBEYA, MANNIE N Acknowledged MADUJIBEYA, MANNIE N 05/24/25 0508 Intake and output Every 6 hours Acknowledged MADUJIBEYA, MANNIE N 05/24/25 0508 Glucose Finger Stick Q6 Every 6 hours Order ID Start Status Ordering Provider [id number] 05/24/25 0600 Acknowledged MADUJIBEYA, MANNIE N 05/24/25 1200 Scheduled MADUJIBEYA, MANNIE N 05/24/25 1800 Scheduled MADUJIBEYA, MANNIE N 05/25/25 0000 Scheduled MADUJIBEYA, MANNIE N 05/25/25 0600 Scheduled MADUJIBEYA, MANNIE N 05/25/25 1200 Scheduled MADUJIBEYA, MANNIE N 05/25/25 1800 Scheduled MADUJIBEYA, MANNIE N 05/26/25 0000 Scheduled MADUJIBEYA, MANNIE N 05/26/25 0600 Scheduled MADUJIBEYA, MANNIE N 05/26/25 1200 Scheduled MADUJIBEYA, MANNIE N 05/26/25 1800 Scheduled MADUJIBEYA, MANNIE N 05/27/25 0000 Scheduled MADUJIBEYA, MANNIE N 05/27/25 0600 Scheduled MADUJIBEYA, MANNIE N 05/27/25 1200 Scheduled MADUJIBEYA, MANNIE N 05/27/25 1800 Scheduled MADUJIBEYA, MANNIE N 05/28/25 0000 Scheduled MADUJIBEYA, MANNIE N 05/28/25 0600 Scheduled MADUJIBEYA, MANNIE N 05/28/25 1200 Scheduled MADUJIBEYA, MANNIE N 05/28/25 1800 Scheduled MADUJIBEYA, MANNIE N Acknowledged MADUJIBEYA, MANNIE N 05/24/25 0508 POCT Glucose (if patient NPO, on TPN or continuous nutrition) Every 6 hours Comments: If patient NPO or receiving continuous nutrition (tube feeds or TPN) check POC BG every 6hours. Order ID Start Status Ordering Provider [id number] 05/24/25 0600 Acknowledged MADUJIBEYA, MANNIE N 05/24/25 1200 Scheduled MADUJIBEYA, MANNIE N 05/24/25 1800 Scheduled MADUJIBEYA, MANNIE N 05/25/25 0000 Scheduled MADUJIBEYA, MANNIE N 05/25/25 0600 Scheduled MADUJIBEYA, MANNIE N 05/25/25 1200 Scheduled MADUJIBEYA, MANNIE N 05/25/25 1800 Scheduled MADUJIBEYA, MANNIE N 05/26/25 0000 Scheduled MADUJIBEYA, MANNIE N 05/26/25 0600 Scheduled MADUJIBEYA, MANNIE N 05/26/25 1200 Scheduled MADUJIBEYA, MANNIE N 05/26/25 1800 Scheduled MADUJIBEYA, MANNIE N 05/27/25 0000 Scheduled MADUJIBEYA, MANNIE N 05/27/25 0600 Scheduled MADUJIBEYA, MANNIE N 05/27/25 1200 Scheduled MADUJIBEYA, MANNIE N 05/27/25 1800 Scheduled MADUJIBEYA, MANNIE N 05/28/25 0000 Scheduled MADUJIBEYA, MANNIE N 05/28/25 0600 Scheduled MADUJIBEYA, MANNIE N 05/28/25 1200 Scheduled MADUJIBEYA, MANNIE N 05/28/25 1800 Scheduled MADUJIBEYA, MANNIE N Acknowledged MADUJIBEYA, MANNIE N 05/24/25 0508 PT eval and treat Until therapy completed Acknowledged MADUJIBEYA, MANNIE N 05/24/25 0508 OT eval and treat Until therapy completed Acknowledged MADUJIBEYA, MANNIE N 05/24/25 0508 Sequential compression device Until discontinued Comments: SCDs must be in place and turned on EXCEPT when ACTIVELY ambulating. Acknowledged MEENAKSHIUJIBEYA, MANNIE N 05/24/25 0508 Do Not Give Nicotine Replacement Until discontinued Acknowledged MADUJIBEYA, MANNIE N 05/24/25 0508 Hold scheduled meal/prandial insulin, if patient NPO or if patient eats less than 50%of meal. Until discontinued Acknowledged MEENAKSHIUMANDOBEYA, MANNIE N 05/24/25 0508 Do not hold scheduled basal insulin, if applicable, without physician order. Until discontinued Acknowledged MEENAKSHIUMANDOBEBINA, MANNIE N 05/24/25 0508 Notify Provider Until discontinued Acknowledged MADUJIBEYA, MANNIE N 05/24/25 0508 For POC BG 71 - 89 mg/dL Until discontinued Comments: If patient is able to take PO (does not have NPO order) give 15 -20 gm of carbohydrate plus protein snack. Options include: 3 bruce crackers (15 gm); 2 pkg. saltine crackers (16 gm); 4 oz cup applesauce (17 gm); ?? oz peanut butter,1 container (5 gm); 1 cup regular pudding (21 gm); or 1 cup sugar free pudding (10 gm). Recheck POC BG 30 minutes after administration and follow hypoglycemia prevention protocol. Acknowledged MEENAKSHIUMANDOBEYA, MANNIE N 05/24/25 0508 For POC BG 51 - 70 mg/dL Until discontinued Comments: If patient is able to take PO (does not have NPO order) give 15gm of fast acting carbohydrates. Options include 4 oz of juice (apple juice preferred in renal patients), 4 oz non-diet soda or 8 oz milk. Recheck POC BG 15 minutes after administration and retreat if necessary until POC BG is> 100. Acknowledged MADUJIBEYA, MANNIE N 05/24/25 0508 For POC BG less than or equal to 50 mg/dL Until discontinued Comments: After patient receives 25gm Dextrose and patient alert and can take PO (does not have NPOorder) give 30gm fast acting carbohydrates. Options include 8 oz of juice (apple juice preferred inrenal patients), 8 oz non-diet soda or 16 oz milk. Recheck POC BG 15 minutes after administration and repeat if necessary until POC BG >100. Acknowledged MADUJIBEYA, MANNIE N 05/24/25 0508 NPO diet Diet effective now Acknowledged MADUJIBEYA, MANNIE N 05/24/25 0508 Bladder scan - once Once Comments: Please check post void residual (PVR) by bladder scanner, document in the section of the flow chart, and call team if PVR is greater than 200 mL Acknowledged MADUJIBEYA, MANNIE N 05/24/25 0508 Continuous Pulse Oximetry (Needs additional Telemetry Order too) Until discontinued Acknowledged MADUJIBEYA, MANNIE N 05/24/25 0508 Telemetry Monitoring for Hospital Transfers Until discontinued Acknowledged MADUJIBEYA, MANNIE N 05/24/25 0508 Fall precautions Until discontinued Acknowledged MADUJIBEYA, MANNIE N 05/24/25 0508 Admit to inpatient Once Acknowledged MADUJIBEYA, MANNIE N 05/24/25 0508 Mobility Orders Until discontinued Acknowledged MADUJIBEYA, MANNIE N 05/24/25 0508 Notify physician (specify parameters) Until discontinued Acknowledged MADUJIBEYA, MANNIE N 05/24/25 0508 Insert peripheral IV Once Placed in And Linked Group Acknowledged MADUJIBEYA, MANNIE N 05/24/25 0508 Saline lock IV Once Placed in And Linked Group Acknowledged MADUJIBEYA, MANNIE N 05/24/25 0508 Full code Continuous Acknowledged MADUJIBEYA, MANNIE N 05/24/25 0434 Consult to [facility] Medicine [facility] Once Specialty: Internal Medicine Provider: (Not yet assigned) Acknowledged ABDOUL ROUSE 05/24/25 0434 ED to floor bed request Once Completed [facility], ABDOUL 05/24/25 0402 Folate STAT In process [facility], [facility] 05/24/25 0402 Vitamin B12 Once In process [facility], [facility] 05/24/25 0352 POCT glucose meter PROCEDURE ONCE Final result [facility], [facility] 05/24/25 0328 EKG now - STAT (adult) Once Preliminary result [facility], [facility] 05/24/25 0328 Initiate Contact D Isolation Continuous Comments: Added via Instant Order OPA Acknowledged [facility], INSTANT ORDERS 05/24/25 0326 Drug abuse screen STAT Acknowledged [facility], [facility] 05/24/25 0326 Urinalysis with reflex microscopic AND reflex culture (IF UTI SUSPECTED) STAT Acknowledged [facility], [facility] 05/24/25 0326 Clostridiodes (Clostridium) difficile PCR STAT Acknowledged [facility], [facility] 05/24/25 0326 Comprehensive GI Panel by PCR STAT Acknowledged [facility], [facility] 05/24/25 0326 Urinalysis with reflex microscopic (Culture NOT Included) PROCEDURE ONCE Ordered [facility] 05/24/25 0326 Urine Contreras Panel PROCEDURE ONCE Ordered [facility], [facility] 05/24/25 0326 CBC w/diff STAT Final result [facility], [facility] 05/24/25 0326 PT-INR STAT Final result [facility] 05/24/25 0326 APTT STAT Final result [facility] 05/24/25 0326 Magnesium STAT Final result [facility], [facility] 05/24/25 0326 CMP STAT Final result [facility], [facility] 05/24/25 0326 Phosphorus STAT Final result [facility] 05/24/25 0326 Lipase STAT Final result [facility] 05/24/25 0326 Blood gas panel, venous STAT Final result [facility], [facility] 05/24/25 0326 Thyroid Stimulating Hormone, Plasma STAT Final result [facility], [facility] 05/24/25 0326 Free T4, Plasma STAT Final result [facility] 05/24/25 0326 C-Reactive protein STAT Final result [facility], [facility] 05/24/25 0326 Blood Culture (Aerobic/Anaerobet Set) STAT In process [facility] 05/24/25 0326 Blood Culture (Aerobic/Anaerobet Set) STAT In process ABDOUL ROUSE 05/24/25 0508 POCT Glucose - PRN As needed Comments: Check POC BG at 0300 if patient received correction insulin or was hypoglycemic at bedtime. Acknowledged MANNIE ALVES 05/24/25 0508 POCT Glucose As needed Comments: Recheck POC BG 15 minutes after any hypoglycemia treatment. Continue until POC BG is greater than 100 mg/dL. Acknowledged MANNIE ALVES ED Course as of 05/24/25 0517 Kirstin May 24, 2025 0353 EKG demonstrates sinus tachycardia at a rate of 125 with normal axis and intervals no acute ST-elevation no malignant arrhythmia on my interpretation [DW] ED Course User Index [DW] Abdoul Rouse MD Clinical Impressions as of 05/24/25 0517 Sepsis, due to unspecified organism, unspecified whether acute organ dysfunction present Decompensation of cirrhosis of liver (CMS/HCC) Hyponatremia Social Determinates of Health Risks (including Economic Stability, Education and level of understanding, Healthcare access and quality and concerning social factors): Lives far away Ultimately, this patient was Was admitted (Admission) The primary encounter diagnosis was Sepsis, due to unspecified organism, unspecified whether acute organ dysfunction present. Diagnoses of Decompensation of cirrhosis of liver (CMS/HCC) and Hyponatremia were also pertinent to this visit.. Patient believed to require admission for the listed diagnoses. The Internal Medicine service was consulted for admission and was agreeable to admitto Acute Floor (Med/Surg). ED Prescriptions None Disposition Admit Admitting/Attending Physician: LISETTE QUARLES [[id number]] Provider Care Team: [facility] 3 [204] Are they the primary team?: Yes [1] - Date/Time: 05/24/2025/4:07 AM Scribe Attestation: This note was dictated to me, Anna Barrera, acting as a scribe for Abdoul Solares MD. Attending Attestation: The documentation was recorded by Anna Barrera acting as scribe in my presence at the time of the encounter and accurately reflects the service I personally performed. [1] Past Medical History: Diagnosis Date Anemia Anisocoria Arthritis Cataract CHF (congestive heart failure) Diabetes mellitus 2019 History of transfusion Hypertension 2018 Iritis Iritis Migraine Osteomyelitis of vertebra, site unspecified (CMS/HCC) Spinal abscess Personal history of other diseases of the female genital tract History of ovarian cyst Unspecified cirrhosis of liver (CMS/HCC) Non-alcoholic cirrhosis [2] Past Surgical History: Procedure Laterality Date APPENDECTOMY BACK SURGERY N/A 1994 BACK SURGERY 2010 BREAST SURGERY N/A Breast Surgery Reduction Procedure Bilateral from [facility] EXPLORATORY LAPAROTOMY GALLBLADDER SURGERY 2018 GANGLION CYST EXCISION, WRIST Left INCISION AND DRAINAGE, ABCESS 2010 from back LIVER BIOPSY OTHER SURGICAL HISTORY N/A Exploratory Laparotomy from [facility] OVARIAN CYST DRAINAGE N/A Aspiration Of Ovarian Cyst from [facility] TOTAL ABDOMINAL HYSTERECTOMY N/A 2011 Hysterectomy from [facility] [3] Family History Problem Relation Name Age [...] Heart attack Paternal Grandmother Hypertension Paternal Grandfather [4] Tobacco Use Smoking status: Former Current packs/day: 0.00 Average packs/day: 0.1 packs/day for 10.6 years (1.1 ttl pk-yrs) Types: Cigarettes Start date: 2011 Quit date: 02/2022 Years since quittin.2 Passive exposure: Past Smokeless tobacco: Never Vaping Use Vaping status: Never Used Substance Use Topics Alcohol use: Not Currently Comment: not drinking since 2017 Drug use: Not Currently Types: Marijuana Comment: May 2024 last used [5] Allergies Allergen Reactions Povidone Iodine Itching and Rash With Betadine (topical). Sulfa Drugs Hives Vortioxetine Itching and Rash Wound Dressing Adhesive Other - please document in the comment field Breaks out where skin comes in contact with adhesive. Prevents wound healing if over a wound (e.g.,incision opened up where covering incision from breast reduction surgery). Abdoul Rouse MD 05/24/25 0517 documented in this encounter Plan of Treatment Upcoming Encounters Date Type Department Care Team (Late st Contact Info) Description 07/17/2025 8:45 AM EST Clinical Support [facility] [address] [place] [address] 07/17/2025 10:30 AM EST Office Visit [facility] [place] [address] [place] [address] Nj Johns MD [address] [place] [address] Scheduled Orders Name Type Priority Associated Diagnoses Orde r Schedule Arterial Blood Stick (PFT Lab Performed) Lab Routine Once (Lab) f or 1 Occurrences starting 05/28/2025 until 05/28/2025 Scheduled Referrals Name Type Priority Associated Diagnoses Orde r Schedule Discharge Ambulatory referral to Solid Organ Transplant Team Outpatient Referral Routine 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 Ordered: 05/24/2025 Discharge Ambulatory referral to NON Physical Therapy Outpatient Referral Routine Abnormal electrocardiogram (ECG) (EKG) Abrasion, left knee, initial encounter Expected: 05/31/2025 (Approximate), Expires: 12/02/2026 Discharge Ambulatory referral to Gastroenterology Outpatient Referral Routine 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 Encephalopathy, hepatic (CMS/HCC) Expected: 06/14/2025 (Approximate), Expires: 12/02/2026 Ambulatory referral for Follow Up Care Outpatient Referral Routine 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 Encephalopathy, hepatic (CMS/HCC) Expected: 06/07/2025, Expires: 12/02/2026 documented as of this encounter Goals Goal Patient Goal Type Associated Problems Recent Progress Patient-Stated? Author Patient will attend follow-up appointment with transplant Care Plan Appointments Cely Patricia RN Patient will monitor daily weights Care Plan Symptom management Not on track( 2:41 PM EST) Cely Patricia RN Note: Regular weight 165 lb 06/04/2025: Weight 193.4 Patient weighed 208 lb while inpatient Patient will monitor glucose levels Care Plan Symptom management On track( 2:42 PM EST) Cely Patricia RN Consistently take Medications as Prescribed- rifaximin Care Plan Med Adherence Not on track( 3:04 PM EST) Cely Patricia RN Patient to follow-up with medication assistance program,[facility] Care Plan Med Adherence Not on track( 3:04 PM EST) No Cely Diaz RN documented as of this encounter Procedures Procedure Name Priority Date/Time Associated Diagnosis Comments POCT GLUCOSE METER UNSOLICITED RESULTS Routine 05/31/2025 11:31 AM EST POCT GLUCOSE METER UNSOLICITED RESULTS Routine 05/31/2025 7:46 AM EST PROTHROMBIN TIME(PT) / INR Routine 05/31/2025 3:16 AM EST PHOSPHORUS, PLASMA Add-On 05/31/2025 3: 16 AM EST MAGNESIUM, PLASMA Add-On 05/31/2025 3:1 6 AM EST HEPATIC FUNCTION PANEL Routine 3:16 AM EST BASIC METABOLIC PANEL, PLASMA Routine 05/31/2025 3:16 AM EST POCT GLUCOSE METER UNSOLICITED RESULTS Routine 05/30/2025 7:47 PM EST POCT GLUCOSE METER UNSOLICITED RESULTS Routine 05/30/2025 4:31 PM EST POCT GLUCOSE METER UNSOLICITED RESULTS Routine 05/30/2025 12:45 PM EST NM MYOCARDIAL SPECT REGADENOSON STRESS (MULTI STUDY) Routine 05/30/2025 10:41 AM EST NON-INVASIVE VENTILATION Routine 05/30/2025 8:00 AM EST POCT GLUCOSE METER UNSOLICITED RESULTS Routine 05/30/2025 7:54 AM EST POCT GLUCOSE METER UNSOLICITED RESULTS Routine 05/30/2025 6:01 AM EST PROTHROMBIN TIME(PT) / INR Routine 05/30/2025 3:58 AM EST CBC W/O DIFFERENTIAL Routine 05/30/2025 3:58 AM EST PHOSPHORUS, PLASMA Routine 05/30/2025 3: 58 AM EST MAGNESIUM, PLASMA Routine 05/30/2025 3:5 8 AM EST HEPATIC FUNCTION PANEL Routine 3:58 AM EST BASIC METABOLIC PANEL, PLASMA Routine 05/30/2025 3:58 AM EST NON-INVASIVE VENTILATION Routine 05/29/2025 8:00 PM EST POCT GLUCOSE METER UNSOLICITED RESULTS Routine 05/29/2025 7:59 PM EST POCT GLUCOSE METER UNSOLICITED RESULTS Routine 05/29/2025 4:38 PM EST POCT ARTERIAL BLOOD GAS GEM UNSOLICITED RESULTS Routine 05/29/2025 4:12 PM EST POCT GLUCOSE METER UNSOLICITED RESULTS Routine 05/29/2025 12:57 PM EST HC BREATHING CAPACITY TEST Routine 05/29/2025 10:20 AM EST NON-INVASIVE VENTILATION Routine 05/29/2025 8:00 AM EST POCT GLUCOSE METER UNSOLICITED RESULTS Routine 05/29/2025 6:53 AM EST POCT GLUCOSE METER UNSOLICITED RESULTS Routine 05/29/2025 6:06 AM EST ABO/RH TRANSPLANT Routine 05/29/2025 3:5 9 AM EST PROTHROMBIN TIME(PT) / INR Routine 05/29/2025 3:59 AM EST CBC W/O DIFFERENTIAL Routine 05/29/2025 3:59 AM EST HEPATIC FUNCTION PANEL Routine 3:59 AM EST BASIC METABOLIC PANEL, PLASMA Routine 05/29/2025 3:59 AM EST POCT GLUCOSE METER UNSOLICITED RESULTS Routine 05/28/2025 8:04 PM EST NON-INVASIVE VENTILATION Routine 05/28/2025 8:00 PM EST POCT GLUCOSE METER UNSOLICITED RESULTS Routine 05/28/2025 4:44 PM EST ECHO, ADULT TRANSTHORACIC COMPLETE STAT 05/28/2025 2:43 PM EST POCT GLUCOSE METER UNSOLICITED RESULTS Routine 05/28/2025 12:51 PM EST NON-INVASIVE VENTILATION Routine 05/28/2025 8:00 AM EST POCT GLUCOSE METER UNSOLICITED RESULTS Routine 05/28/2025 7:36 AM EST PROTHROMBIN TIME(PT) / INR Routine 05/28/2025 3:52 AM EST CBC W/O DIFFERENTIAL Routine 05/28/2025 3:52 AM EST HEPATIC FUNCTION PANEL Routine 3:52 AM EST BASIC METABOLIC PANEL, PLASMA Routine 05/28/2025 3:52 AM EST POCT GLUCOSE METER UNSOLICITED RESULTS Routine 05/27/2025 8:15 PM EST NON-INVASIVE VENTILATION Routine 05/27/2025 8:00 PM EST POCT GLUCOSE METER UNSOLICITED RESULTS Routine 05/27/2025 4:49 PM EST POCT GLUCOSE METER UNSOLICITED RESULTS Routine 05/27/2025 11:23 AM EST POCT GLUCOSE METER UNSOLICITED RESULTS Routine 05/27/2025 8:04 AM EST NON-INVASIVE VENTILATION Routine 05/27/2025 8:00 AM EST PROTHROMBIN TIME(PT) / INR Routine 05/27/2025 3:32 AM EST CBC W/O DIFFERENTIAL Routine 05/27/2025 3:32 AM EST PHOSPHORUS, PLASMA Routine 05/27/2025 3: 32 AM EST MAGNESIUM, PLASMA Routine 05/27/2025 3:3 2 AM EST HEPATIC FUNCTION PANEL Routine 3:32 AM EST BASIC METABOLIC PANEL, PLASMA Routine 05/27/2025 3:32 AM EST POCT GLUCOSE METER UNSOLICITED RESULTS Routine 05/26/2025 8:03 PM EST NON-INVASIVE VENTILATION Routine 05/26/2025 8:00 PM EST POCT GLUCOSE METER UNSOLICITED RESULTS Routine 05/26/2025 4:36 PM EST SODIUM, URINE, RANDOM Routine 05/26/2025 2:53 PM EST OSMOLALITY, URINE Routine 05/26/2025 2:5 3 PM EST CREATININE, RANDOM URINE Routine 05/26/2025 2:53 PM EST POCT GLUCOSE METER UNSOLICITED RESULTS Routine 05/26/2025 11:53 AM EST POCT GLUCOSE METER UNSOLICITED RESULTS Routine 05/26/2025 7:34 AM EST COPPER, SERUM OR PLASMA (SO) Routine 05/26/2025 5:40 AM EST PROTHROMBIN TIME(PT) / INR Routine 05/26/2025 5:40 AM EST CBC W/O DIFFERENTIAL Routine 05/26/2025 5:40 AM EST DIRECT BILIRUBIN, PLASMA Routine 05/26/2025 5:40 AM EST COMPREHENSIVE METABOLIC PANEL, PLASMA Routine 05/26/2025 5:40 AM EST NON-INVASIVE VENTILATION Routine 05/25/2025 10:19 PM EST NON-INVASIVE VENTILATION Routine 05/25/2025 10:19 PM EST NON-INVASIVE VENTILATION Routine 05/25/2025 10:19 PM EST POCT GLUCOSE METER UNSOLICITED RESULTS Routine 05/25/2025 9:15 PM EST MICROBIOLOGY FREQUENCY OVERRIDE Routine 05/25/2025 4:57 PM EST COMPREHENSIVE GI PANEL BY PCR Routine 05/25/2025 4:57 PM EST POCT GLUCOSE METER UNSOLICITED RESULTS Routine 05/25/2025 4:26 PM EST LACTATE, VENOUS Routine 05/25/2025 3:41 PM EST CBC W/O DIFFERENTIAL Routine 05/25/2025 3:41 PM EST POCT GLUCOSE METER UNSOLICITED RESULTS Routine 05/25/2025 11:56 AM EST US ABDOMEN DOPPLER LIMITED Routine 05/25/2025 10:56 AM EST US ABDOMEN FOCUSED REGION Routine 05/25/2025 10:56 AM EST XR CHEST 1 VIEW Routine 05/25/2025 9:42 AM EST POCT GLUCOSE METER UNSOLICITED RESULTS Routine 05/25/2025 7:29 AM EST PROTHROMBIN TIME(PT) / INR Routine 05/25/2025 2:38 AM EST CBC W/O DIFFERENTIAL Routine 05/25/2025 2:38 AM EST PHOSPHORUS, PLASMA Routine 05/25/2025 2: 38 AM EST MAGNESIUM, PLASMA Routine 05/25/2025 2:3 8 AM EST HEPATIC FUNCTION PANEL Routine 2:38 AM EST BASIC METABOLIC PANEL, PLASMA Routine 05/25/2025 2:38 AM EST NON-INVASIVE VENTILATION Routine 05/24/2025 10:22 PM EST POCT GLUCOSE METER UNSOLICITED RESULTS Routine 05/24/2025 7:35 PM EST POCT GLUCOSE METER UNSOLICITED RESULTS Routine 05/24/2025 6:26 PM EST LACTATE, VENOUS Routine 05/24/2025 5:22 PM EST COMPREHENSIVE METABOLIC PANEL, PLASMA Routine 05/24/2025 5:22 PM EST LACTATE, VENOUS Routine 05/24/2025 1:01 PM EST COMPREHENSIVE GI PANEL BY PCR STAT 05/24/2025 12:52 PM EST CLOSTRIDIODES (CLOSTRIDIUM) DIFFICILE,PCR STAT 05/24/2025 12:52 PM EST POCT GLUCOSE METER UNSOLICITED RESULTS Routine 05/24/2025 10:32 AM EST URINALYSIS WITH REFLEX MICROSCOPIC AND CULTURE STAT 05/24/2025 8:00 AM EST URINE CONTRERAS PANEL STAT 05/24/2025 8:00 AM EST OPIATES, LCMSMS, URINE STAT 8:00 AM EST DRUG ABUSE SCREEN, URINE STAT 05/24/2025 8:00 AM EST OSMOLALITY, URINE Routine 05/24/2025 8:0 0 AM EST URINALYSIS WITH REFLEX MICROSCOPIC STAT 05/24/2025 8:00 AM EST POCT GLUCOSE METER UNSOLICITED RESULTS Routine 05/24/2025 7:45 AM EST LACTATE, VENOUS Routine 05/24/2025 6:59 AM EST FOLATE, SERUM Routine 05/24/2025 6:59 AM EST VITAMIN B12, SERUM Routine 05/24/2025 6: 59 AM EST AMMONIA, PLASMA Routine 05/24/2025 6:59 AM EST POCT GLUCOSE METER UNSOLICITED RESULTS Routine 05/24/2025 6:15 AM EST FOLATE, SERUM STAT 05/24/2025 4:23 AM EST VITAMIN B12, SERUM STAT 05/24/2025 4: 23 AM EST BLOOD CULTURE (AEROBIC/ANAEROBIC SET) STAT 05/24/2025 4:05 AM EST BLOOD CULTURE (AEROBIC/ANAEROBIC SET) STAT 05/24/2025 4:05 AM EST POCT GLUCOSE METER UNSOLICITED RESULTS Routine 05/24/2025 3:52 AM EST APTT STAT 05/24/2025 3:39 AM EST PROTHROMBIN TIME(PT) / INR STAT 05/24/2025 3:39 AM EST CBC WITH AUTO DIFFERENTIAL STAT 05/24/2025 3:39 AM EST C-REACTIVE PROTEIN, PLASMA STAT 05/24/2025 3:39 AM EST TSH STAT 05/24/2025 3:39 AM EST FREE T4, PLASMA STAT 05/24/2025 3:39 AM EST PHOSPHORUS, PLASMA STAT 05/24/2025 3: 39 AM EST OSMOLALITY, SERUM Add-On 05/24/2025 3:3 9 AM EST MAGNESIUM, PLASMA STAT 05/24/2025 3:3 9 AM EST LIPASE, PLASMA STAT 05/24/2025 3:39 AM EST BLOOD GAS PANEL, VENOUS STAT 05/24/2025 3:39 AM EST DIRECT BILIRUBIN, PLASMA Add-On 05/24/2025 3:39 AM EST COMPREHENSIVE METABOLIC PANEL, PLASMA STAT 05/24/2025 3:39 AM EST ECG ADULT STAT 05/24/2025 3:33 AM EST documented in this encounter Results * (ABNORMAL) POCT glucose meter (05/31/2025 11:31 AM EST) POCT Glucose 118(H) 74 - 99 mg/dL 05/31/2025 11:33 AM EST [facility] Comment:Accuracy of a glucos e result obtained from a capillary whole blood specimen relies upon adequate, non-compromised capillary blood flow. If the capillary glucose result is not consistent with the patient's clinical signs and symptoms, glucose testing should be repeated with either an arterial or venous sample on the glucometer or sent to the main labortory for testing. Comment 05/31/2025 11:33 AM EST [facility] Bilingual Social Worker ID Fernando Curran 11:33 AM EST [facility] Device ID [id number] 05/31/2025 11:33 AM EST [facility] Specimen Type POC Capillary 05/31/2025 11:33 AM EST [facility] Blood Capillary blood specimen / Unknown 05/31/2025 11:31 AM EST 05/31/2025 11:33 AM EST Alison Burns MD LAB POINT OF CARE TE ST DOCKED DEVICE UNSOLICITED RESULTS Final Result Performing Organization Address [facility] de Phone Number [facility] [address] [place] [address] * (ABNORMAL) POCT glucose meter (05/31/2025 7:46 AM EST) POCT Glucose 132(H) 74 - 99 mg/dL 05/31/2025 7:48 AM EST [facility] Comment:Accuracy of a glucos e result obtained from a capillary whole blood specimen relies upon adequate, non-compromised capillary blood flow. If the capillary glucose result is not consistent with the patient's clinical signs and symptoms, glucose testing should be repeated with either an arterial or venous sample on the glucometer or sent to the main labortory for testing. Comment 05/31/2025 7:48 AM EST [facility] Bilingual Social Worker ID Fernando Curran 7:48 AM EST [facility] Device ID [id number] 05/31/2025 7:48 AM EST [facility] Specimen Type POC Capillary 05/31/2025 7:48 AM EST [facility] Blood Capillary blood specimen / Unknown 05/31/2025 7:46 AM EST 05/31/2025 7:48 AM EST Alison Burns MD LAB POINT OF CARE TE ST DOCKED DEVICE UNSOLICITED RESULTS Final Result Performing Organization Address City/[facility] de Phone Number [facility] [address] [place] [address] * (ABNORMAL) Magnesium, Plasma (05/31/2025 3:16 AM EST) Magnesium, Plasma 1.8(L) 1.9 - 2.4 mg/dL 05/31/2025 8:44 AM EST [facility] Blood Venous blood specimen / Unknown Venipuncture / Unknown 05/31/2025 3:16 AM EST 05/31/2025 4:00 AM EST us Alison Burns MD LAB BLOOD ORDERABLES Final Re sult Performing Organization Address City/[facility]/ZIP Co de Phone Number [facility] [address] [place] [address] * Phosphorus, Plasma (05/31/2025 3:16 AM EST) Phosphorus, Plasma 2.9 2.5 - 4.5 mg/dL 05/31/2025 8:44 AM EST [facility] Blood Venous blood specimen / Unknown Venipuncture / Unknown 05/31/2025 3:16 AM EST 05/31/2025 4:00 AM EST us Alison Burns MD LAB BLOOD ORDERABLES Final Re sult Performing Organization Address [facility] de Phone Number [facility] [address] [place] [address] * (ABNORMAL) Prothrombin Time/INR (05/31/2025 3:16 AM EST) Prothrombin Time 18.3(H) 12.0 - 14.3 sec 05/31/2025 4:24 AM EST [facility] INR 1.5(H) 0.9 - 1.1 05/31/2025 4:24 AM EST [facility] Blood Venous blood specimen / Unknown Venipuncture / Unknown 05/31/2025 3:16 AM EST 05/31/2025 4:00 AM EST Narrative [facility] - 05/31/2025 4:24 AM EST OPTIMAL INR RANGES FOR PATIENT ON ORAL ANTICOAGULANT THERAPY Prevention of venous thromboembolism INR 2.0 to 3.0 In patients with heart disease: Atrial fibrillation INR 2.0 to 3.0 Valvular heart disease INR 2.0 to 3.0 Tissue heart valves INR 2.0 to 3.0 Mechanical prosthetic valves INR 2.5 to 3.5 Prevention of recurrent AR INR 2.5 to 3.5 us Alison Burns MD LAB BLOOD ORDERABLES Final Re sult Performing Organization Address City/[facility]/ZIP Co de Phone Number [facility] [address] [place] [address] * (ABNORMAL) Hepatic Function Panel (05/31/2025 3:16 AM EST) Direct Bilirubin, Plasma 1.3(H) <=0.3 mg/dL 05/31/2025 4:27 AM EST [facility] Alkaline Phosphatase, Plasma 140(H) 35 - 104 U/L 05/31/2025 4:27 AM EST [facility] Total Bilirubin, Plasma 2.6(H) 0.2 - 1.1 mg/dL 05/31/2025 4:27 AM EST [facility] Albumin, Plasma 2.6(L) 3.5 - 5.2 g/dL 05/31/2025 4:27 AM EST [facility] Total Protein 5.7(L) 6.3 - 7.9 g/dL 05/31/2025 4:27 AM EST [facility] ALT, Plasma 47(H) 10 - 35 U/L 05/31/2025 4:27 AM EST [facility] AST, Plasma 68(H) 10 - 35 U/L 05/31/2025 4:27 AM EST [facility] Blood Venous blood specimen / Unknown Venipuncture / Unknown 05/31/2025 3:16 AM EST 05/31/2025 4:00 AM EST Alison Burns MD LAB BLOOD ORDERABLES Final Re sult [facility] [address] [place] [address] * (ABNORMAL) Basic Metabolic Panel, Plasma (05/31/2025 3:16 AM EST) Pathologist [facility] Glucose, Plasma 149(H) 74 - 99 mg/dL 05/31/2025 4:27 AM EST [facility] BUN, Plasma 19 7 - 21 mg/dL 05/31/2025 4:27 AM EST [facility] Creatinine, Plasma 1.03 0.60 - 1.10 mg/dL 05/31/2025 4:27 AM EST [facility] BUN/Creatinine Ratio 18 05/31/2025 4:27 AM EST [facility] Sodium, Plasma 131(L) 136 - 145 mmol/L 05/31/2025 4:27 AM EST [facility] Potassium, Plasma 4.2 3.6 - 4.9 mmol/L 05/31/2025 4:27 AM EST [facility] Chloride, Plasma 101 97 - 107 mmol/L 05/31/2025 4:27 AM EST [facility] CO2, Plasma 25 22 - 29 mmol/L 05/31/2025 4:27 AM EST [facility] Anion Gap 5(L) 6 - 16 mmol/L 05/31/2025 4:27 AM EST [facility] Total Calcium, Plasma 8.5(L) 8.9 - 10.2 mg/dL 05/31/2025 4:27 AM EST [facility] eGFRcr 64.3 mL/min/1.7 3m*2 05/31/2025 4:27 AM EST [facility] Comment:Reported eGFRcr in m L/min/1.73m2 is based the CKD-EPI 2020 equation that does not use a race coefficient. Blood Venous blood specimen / Unknown Venipuncture / Unknown 05/31/2025 3:16 AM EST 05/31/2025 4:00 AM EST us Alison Burns MD LAB BLOOD ORDERABLES Final Re sult [facility] [address] [place] [address] * (ABNORMAL) POCT glucose meter (05/30/2025 7:47 PM EST) POCT Glucose 181(H) 74 - 99 mg/dL 05/30/2025 7:49 PM EST [facility] Comment:Accuracy of a glucos e result obtained from a capillary whole blood specimen relies upon adequate, non-compromised capillary blood flow. If the capillary glucose result is not consistent with the patient's clinical signs and symptoms, glucose testing should be repeated with either an arterial or venous sample on the glucometer or sent to the main labortory for testing. Comment 05/30/2025 7:49 PM EST [facility] Bilingual Social Worker ID Clementina Zhao 05/30/2025 7:49 PM EST [facility] Device ID [id number] 05/30/2025 7:49 PM EST [facility] Specimen Type POC Capillary 05/30/2025 7:49 PM EST [facility] Blood Capillary blood specimen / Unknown 05/30/2025 7:47 PM EST 05/30/2025 7:49 PM EST Alison Burns MD LAB POINT OF CARE TE ST DOCKED DEVICE UNSOLICITED RESULTS Final Result Performing Organization Address [facility] de Phone Number [facility] [address] [place] [address] * (ABNORMAL) POCT glucose meter (05/30/2025 4:31 PM EST) POCT Glucose 171(H) 74 - 99 mg/dL 05/30/2025 4:32 PM EST [facility] Comment:Accuracy of a glucos e result obtained from a capillary whole blood specimen relies upon adequate, non-compromised capillary blood flow. If the capillary glucose result is not consistent with the patient's clinical signs and symptoms, glucose testing should be repeated with either an arterial or venous sample on the glucometer or sent to the main labortory for testing. Comment 05/30/2025 4:32 PM EST [facility] Bilingual Social Worker ID Fernando Curran 4:32 PM EST [facility] Device ID [id number] 05/30/2025 4:32 PM EST [facility] Specimen Type POC Capillary 05/30/2025 4:32 PM EST [facility] Blood Capillary blood specimen / Unknown 05/30/2025 4:31 PM EST 05/30/2025 4:32 PM EST Alison Burns MD LAB POINT OF CARE TE ST DOCKED DEVICE UNSOLICITED RESULTS Final Result Performing Organization Address City/[facility] Co de Phone Number [facility] [address] [place] [address] * (ABNORMAL) POCT glucose meter (05/30/2025 12:45 PM EST) POCT Glucose 169(H) 74 - 99 mg/dL 05/30/2025 12:46 PM EST [facility] Comment:Accuracy of a glucos e result obtained from a capillary whole blood specimen relies upon adequate, non-compromised capillary blood flow. If the capillary glucose result is not consistent with the patient's clinical signs and symptoms, glucose testing should be repeated with either an arterial or venous sample on the glucometer or sent to the main labortory for testing. Comment 05/30/2025 12:46 PM EST [facility] Bilingual Social Worker ID Oly Mendiola 05/30/20 12:46 PM EST [facility] Device ID [id number] 05/30/2025 12:46 PM EST [facility] Specimen Type POC Capillary 05/30/2025 12:46 PM EST [facility] Blood Capillary blood specimen / Unknown 05/30/2025 12:45 PM EST 05/30/2025 12:46 PM EST us Alison Burns MD LAB POINT OF CARE TE ST DOCKED DEVICE UNSOLICITED RESULTS Final Result Performing Organization Address City/State/[facility] Co de Phone Number [facility] [address] [place] [address] * NM MYOCARDIAL SPECT REGADENOSON STRESS (MULTI STUDY) (05/30/2025 10:41 AM EST) Target HR 140 bpm MUSE MPHR 165 bpm MUSE Resting HR 86 bpm MUSE Baseline Systolic BP 105 MUSE Baseline Diastolic BP 64 MUSE Pharma PK HR 95 bpm MUSE Pharmacologic Peak BP Systolic 93 mmHg MUSE Pharmacologic Peak BP Diastolic 60 mmHg MUSE Anatomical Region Laterality Modality Nuclear Medicine Narrative 05/30/2025 3:45 PM EST Stress ECG: No ischemic ST segment changes occurred with stress. Perfusion: SPECT images demonstrate normal myocardial perfusion. Function: Normal left ventricular cavity size. Gated SPECT images demonstrate normal systolic function. Regional wall motion is normal. LV wall thickening appears concordantly normal. LVEF: >=70%. Combined ECG/SPECT: This is a probably normal nuclear stress test. There is a previous examination/report available for comparison or correlation, echocardiography from 05/28/2025. There is no significant difference. Technical Details A one-day protocol was followed. 7 mCi of Tc-99m sestamibi were injected intravenously at rest. After a waiting period of 40-60 minutes, SPECT imaging of the heart was performed in the sitting upright position with three-dimensional tomographic reconstructions. 0.4 mg of regadenoson was infused over 10-12 seconds followed by 23.9 mCi of Tc-99m sestamibi injected intravenously. After a waiting period of 40-60 minutes, post-stress SPECT imaging of the heart was performed in the sitting upright and supine positions with three-dimensional tomographic reconstructions. Gated SPECT data were obtained to calculate left ventricular volumes and ejection fraction post-stress. Motion correction was not applied to the rest and/or post-stress acquisitions. Stress Findings A pharmacological stress test was performed. The pharmacologic test was performed using regadenoson. The patient started with a baseline heart rate of 86bpm, and increased to 95bpm with stress pharmacologic agent. The patient's baseline blood pressure was 105/64, and changed to 93/60 with stress medication. The patient's BP decreased during the pharmacologic stress. The patient experienced no chest pain. The patient experienced no other symptoms during the stress test. The patient reached the end of the planned protocol. Stress ECG Baseline ECG: The baseline ECG shows normal sinus rhythm and normal axis. Ectopy noted on baseline ECG was a single premature ventricular contraction. Baseline ECG shows no ST segment deviation. Stress and Recovery ECG: No ischemic ST segment changes occurred. There were no arrhythmias during stress. There were no arrhythmias during recovery. ECG Conclusion: No ischemic ST segment changes occurred with stress. The stress test was performed under direct supervision of the reading senior field service engineer. Study Impression There is no significant patient motion noted. The SPECT images demonstrate a normal left ventricular cavity size with an estimated left ventricular end-diastolic volume of 86 mL (normal: <149 mL for males, < 102 mL for females, small: <45 mL). There is apparent stress-induced transient ischemic dilation (TID) of the left ventricular cavity; this is likely artifactual due to processing. SPECT images demonstrate normal myocardial perfusion. There is no perfusion defect located in the myocardium. There is regular cardiac rhythm with optimal gating. The gated SPECT images demonstrate normal systolic function. Regional wall motion is normal. LV wall thickening appears concordantly normal. The calculated post-stress LVEF is >=70%. Extracardiac findings include duodenogastric reflux and/or gastropathy and splenomegaly. Nuclear Conclusion Combined ECG/SPECT: This is a probably normal nuclear stress test. There is a previous examination/report available for comparison or correlation, echocardiography from 05/28/2025. There is no significant difference. us Christopher P Drummond [employer], DNP CV STRESS PROCED URES Final Result * (ABNORMAL) POCT glucose meter (05/30/2025 7:54 AM EST) POCT Glucose 103(H) 74 - 99 mg/dL 05/30/2025 7:55 AM EST [facility] Comment:Accuracy of a glucos e result obtained from a capillary whole blood specimen relies upon adequate, non-compromised capillary blood flow. If the capillary glucose result is not consistent with the patient's clinical signs and symptoms, glucose testing should be repeated with either an arterial or venous sample on the glucometer or sent to the main labortory for testing. Comment 05/30/2025 7:55 AM EST [facility] Bilingual Social Worker ID Fernando Curran 7:55 AM EST [facility] Device ID [id number] 05/30/2025 7:55 AM EST [facility] Specimen Type POC Capillary 05/30/2025 7:55 AM EST [facility] Blood Capillary blood specimen / Unknown 05/30/2025 7:54 AM EST 05/30/2025 7:55 AM EST Alison Burns MD LAB POINT OF CARE TE ST DOCKED DEVICE UNSOLICITED RESULTS Final Result Performing Organization Address City/State/[facility] Co de Phone Number [facility] [address] [place] [address] * POCT glucose meter (05/30/2025 6:01 AM EST) Pathologist [facility] POCT Glucose 99 74 - 99 mg/dL 05/30/2025 6:02 AM EST [facility] Comment:Accuracy of a glucos e result obtained from a capillary whole blood specimen relies upon adequate, non-compromised capillary blood flow. If the capillary glucose result is not consistent with the patient's clinical signs and symptoms, glucose testing should be repeated with either an arterial or venous sample on the glucometer or sent to the main labortory for testing. Comment 05/30/2025 6:02 AM EST [facility] Bilingual Social Worker ID Carlos Enrique Cobb 025 6:02 AM EST [facility] Device ID [id number] 05/30/2025 6:02 AM EST [facility] Specimen Type POC Capillary 05/30/2025 6:02 AM EST [facility] Blood Capillary blood specimen / Unknown 05/30/2025 6:01 AM EST 05/30/2025 6:02 AM EST Alison Burns MD LAB POINT OF CARE TE ST DOCKED DEVICE UNSOLICITED RESULTS Final Result Performing Organization Address City/State/[facility] Co de Phone Number [facility] [address] [place] [address] * (ABNORMAL) Basic Metabolic Panel, Plasma (05/30/2025 3:58 AM EST) Glucose, Plasma 116(H) 74 - 99 mg/dL 05/30/2025 4:32 AM EST [facility] BUN, Plasma 19 7 - 21 mg/dL 05/30/2025 4:32 AM EST [facility] Creatinine, Plasma 1.01 0.60 - 1.10 mg/dL 05/30/2025 4:32 AM EST [facility] BUN/Creatinine Ratio 19 05/30/2025 4:32 AM EST [facility] Sodium, Plasma 133(L) 136 - 145 mmol/L 05/30/2025 4:32 AM EST [facility] Potassium, Plasma 3.5(L) 3.6 - 4.9 mmol/L 05/30/2025 4:32 AM EST [facility] Chloride, Plasma 100 97 - 107 mmol/L 05/30/2025 4:32 AM EST [facility] CO2, Plasma 26 22 - 29 mmol/L 05/30/2025 4:32 AM EST [facility] Anion Gap 7 6 - 16 mmol/L 05/30/2025 4:32 AM EST [facility] Total Calcium, Plasma 8.6(L) 8.9 - 10.2 mg/dL 05/30/2025 4:32 AM EST [facility] eGFRcr 65.9 mL/min/1.7 3m*2 05/30/2025 4:32 AM EST [facility] Comment:Reported eGFRcr in m L/min/1.73m2 is based the CKD-EPI 2020 equation that does not use a race coefficient. Blood Venous blood specimen / Unknown Venipuncture / Unknown 05/30/2025 3:58 AM EST 05/30/2025 4:05 AM EST us Alison Burns MD LAB BLOOD ORDERABLES Final Re sult [facility] [address] [place] [address] * (ABNORMAL) CBC W/O Differential (05/30/2025 3:58 AM EST) WBC Count 7.20 3.70 - 10.30 10*3/uL LAB HEMATOLOGY METHOD 05/30/2025 4:09 AM EST [facility] RBC Count 3.18(L) 3.90 - 5.20 10*6/uL LAB HEMATOLOGY METHOD 05/30/2025 4:09 AM EST [facility] HGB 11.4 11.2 - 15.7 g/dL LAB HEMATOLOGY METHOD 05/30/2025 4:09 AM EST [facility] HCT 32.9(L) 34.0 - 45.0 % LAB HEMATOLOGY METHOD 05/30/2025 4:09 AM EST [facility] Platelet Count 72(L) 155 - 369 10*3/uL LAB HEMATOLOGY METHOD 05/30/2025 4:09 AM EST [facility] MCV 104(H) 79 - 98 fL LAB HEMATOLOGY METHOD 05/30/2025 4:09 AM EST [facility] MCH 35.8(H) 26.0 - 32.0 pg LAB HEMATOLOGY METHOD 05/30/2025 4:09 AM EST [facility] MCHC 34.7 30.7 - 35.5 g/dL LAB HEMATOLOGY METHOD 05/30/2025 4:09 AM EST [facility] RDW 16.4(H) 11.5 - 14.5 % LAB HEMATOLOGY METHOD 05/30/2025 4:09 AM EST [facility] MPV 8.9 8.8 - 12.5 fL LAB HEMATOLOGY METHOD 05/30/2025 4:09 AM EST [facility] nRBC 0.0 <=0.0 per 100 WBCs LAB HEMATOLOGY METHOD 05/30/2025 4:09 AM EST [facility] Blood Venous blood specimen / Unknown Venipuncture / Unknown 05/30/2025 3:58 AM EST 05/30/2025 4:06 AM EST Alison Burns MD LAB BLOOD ORDERABLES Final Re sult Performing Organization Address City/[facility]/ZIP Co de Phone Number HEALTHCARE [facility] [address] [place] [address] * (ABNORMAL) Prothrombin Time/INR (05/30/2025 3:58 AM EST) Prothrombin Time 18.0(H) 12.0 - 14.3 sec 05/30/2025 4:17 AM EST [facility] INR 1.5(H) 0.9 - 1.1 05/30/2025 4:17 AM EST [facility] Blood Venous blood specimen / Unknown Venipuncture / Unknown 05/30/2025 3:58 AM EST 05/30/2025 4:06 AM EST Narrative [facility] - 05/30/2025 4:17 AM EST OPTIMAL INR RANGES FOR PATIENT ON ORAL ANTICOAGULANT THERAPY Prevention of venous thromboembolism INR 2.0 to 3.0 In patients with heart disease: Atrial fibrillation INR 2.0 to 3.0 Valvular heart disease INR 2.0 to 3.0 Tissue heart valves INR 2.0 to 3.0 Mechanical prosthetic valves INR 2.5 to 3.5 Prevention of recurrent AR INR 2.5 to 3.5 Alison Burns MD LAB BLOOD ORDERABLES Final Re sult Performing Organization Address City/[facility]/ZIP Co de Phone Number [facility] [address] [place] [address] * (ABNORMAL) Hepatic Function Panel (05/30/2025 3:58 AM EST) Direct Bilirubin, Plasma 1.3(H) <=0.3 mg/dL 05/30/2025 4:32 AM EST [facility] Alkaline Phosphatase, Plasma 164(H) 35 - 104 U/L 05/30/2025 4:32 AM EST [facility] Total Bilirubin, Plasma 2.6(H) 0.2 - 1.1 mg/dL 05/30/2025 4:32 AM EST [facility] Albumin, Plasma 2.9(L) 3.5 - 5.2 g/dL 05/30/2025 4:32 AM EST [facility] Total Protein 6.2(L) 6.3 - 7.9 g/dL 05/30/2025 4:32 AM EST [facility] ALT, Plasma 51(H) 10 - 35 U/L 05/30/2025 4:32 AM EST [facility] AST, Plasma 73(H) 10 - 35 U/L 05/30/2025 4:32 AM EST [facility] Blood Venous blood specimen / Unknown Venipuncture / Unknown 05/30/2025 3:58 AM EST 05/30/2025 4:05 AM EST us Alison Burns MD LAB BLOOD ORDERABLES Final Re sult Performing Organization Address [facility] Co de Phone Number [facility] [address] [place] [address] * (ABNORMAL) Magnesium, Plasma (05/30/2025 3:58 AM EST) Magnesium, Plasma 1.7(L) 1.9 - 2.4 mg/dL 05/30/2025 4:32 AM EST [facility] Blood Venous blood specimen / Unknown Venipuncture / Unknown 05/30/2025 3:58 AM EST 05/30/2025 4:05 AM EST us Alison Burns MD LAB BLOOD ORDERABLES Final Re sult Performing Organization Address [facility] de Phone Number [facility] [address] [place] [address] * (ABNORMAL) Phosphorus, Plasma (05/30/2025 3:58 AM EST) Phosphorus, Plasma 2.0(L) 2.5 - 4.5 mg/dL 05/30/2025 4:32 AM EST [facility] Blood Venous blood specimen / Unknown Venipuncture / Unknown 05/30/2025 3:58 AM EST 05/30/2025 4:05 AM EST us Alison Burns MD LAB BLOOD ORDERABLES Final Re sult Performing Organization Address City/[facility] Co de Phone Number [facility] [address] [place] [address] * (ABNORMAL) POCT glucose meter (05/29/2025 7:59 PM EST) [facility] POCT Glucose 125(H) 74 - 99 mg/dL 05/29/2025 8:01 PM EST [facility] Comment:Accuracy of a glucos e result obtained from a capillary whole blood specimen relies upon adequate, non-compromised capillary blood flow. If the capillary glucose result is not consistent with the patient's clinical signs and symptoms, glucose testing should be repeated with either an arterial or venous sample on the glucometer or sent to the main labortory for testing. Comment 05/29/2025 8:01 PM EST [facility] Bilingual Social Worker ID Jeniffer Woods 05/29/2025 8:01 PM EST [facility] Device ID [id number] 05/29/2025 8:01 PM EST [facility] Specimen Type POC Capillary 05/29/2025 8:01 PM EST [facility] Blood Capillary blood specimen / Unknown 05/29/2025 7:59 PM EST 05/29/2025 8:01 PM EST Alison Burns MD LAB POINT OF CARE TE ST DOCKED DEVICE UNSOLICITED RESULTS Final Result [facility] [address] [place] [address] * (ABNORMAL) POCT glucose meter (05/29/2025 4:38 PM EST) [facility] POCT Glucose 161(H) 74 - 99 mg/dL 05/29/2025 4:39 PM EST [facility] Comment:Accuracy of a glucos e result obtained from a capillary whole blood specimen relies upon adequate, non-compromised capillary blood flow. If the capillary glucose result is not consistent with the patient's clinical signs and symptoms, glucose testing should be repeated with either an arterial or venous sample on the glucometer or sent to the main labortory for testing. Comment 05/29/2025 4:39 PM EST [facility] Bilingual Social Worker ID Fernando Curran 4:39 PM EST [facility] Device ID [id number] 05/29/2025 4:39 PM EST [facility] Specimen Type POC Capillary 05/29/2025 4:39 PM EST [facility] Blood Capillary blood specimen / Unknown 05/29/2025 4:38 PM EST 05/29/2025 4:39 PM EST Alison Burns MD LAB POINT OF CARE TE ST DOCKED DEVICE UNSOLICITED RESULTS Final Result Performing Organization Address City/State/[facility] Phone Number [facility] [address] [place] [address] * (ABNORMAL) POCT arterial blood gas gem (05/29/2025 4:12 PM EST) pH, Arterial 7.44 7.35 - 7.45 05/29/2025 4:13 PM EST [facility] pCO2, Arterial 33(L) 35 - 48 mm Hg 05/29/2025 4:13 PM EST [facility] pO2, Arterial 81(L) 83 - 108 mm Hg 05/29/2025 4:13 PM EST [facility] SO2, Arterial 98 94 - 98 % 05/29/2025 4:13 PM EST [facility] FIO2 21.0 % 05/29/2025 4:13 PM EST [facility] Base Excess, Arterial -1.1 -2 - 3 mmol/L 05/29/2025 4:13 PM EST [facility] HCO3, Arterial 22.4 22 - 26 mmol/L 05/29/2025 4:13 PM EST [facility] Total Hemoglobin, Arterial, Whole Blood 13.8 11.2 - 15.7 g/dL 05/29/2025 4:13 PM EST [facility] Hematocrit, Arterial 41.0 34.0 - 45.0 % 05/29/2025 4:13 PM EST [facility] Sodium, Arterial 125(L) 136 - 145 mmol/L 05/29/2025 4:13 PM EST [facility] Potassium, Arterial 3.3(L) 3.6 - 4.9 mmol/L 05/29/2025 4:13 PM EST [facility] Chloride, Whole Blood 102 97 - 107 mmol/L 05/29/2025 4:13 PM EST [facility] Glucose, Arterial 193(H) 74 - 99 mg/dL 05/29/2025 4:13 PM EST [facility] Ionized Calcium, Arterial 4.4(L) 4.6 - 5.1 mg/dL 05/29/2025 4:13 PM EST [facility] Lactate, Arterial 2.5(H) 0.5 - 1.6 mmol/L 05/29/2025 4:13 PM EST [facility] Body Temperature 37.0 Celsius 05/29/2025 4:13 PM EST [facility] pH, Temp Corrected, Arterial 7.44 7.35 - 7.45 05/29/2025 4:13 PM EST [facility] pCO2, Temp Corrected, Arterial 33(L) 35 - 48 mm Hg 05/29/2025 4:13 PM EST [facility] pO2, Temp Corrected, Arterial 81(L) 83 - 108 mm Hg 05/29/2025 4:13 PM EST [facility] Bilingual Social Worker ID 05/29/2025 4:13 PM EST [facility] Blood Whole blood specimen / Unknown 05/29/2025 4:12 PM EST 05/29/2025 4:13 PM EST Alison Burns MD LAB POINT OF CARE TE ST DOCKED DEVICE UNSOLICITED RESULTS Final Result Performing Organization Address City/State/[facility] Co [place] Phone Number [facility] [address] [place] [address] * (ABNORMAL) POCT glucose meter (05/29/2025 12:57 PM EST) POCT Glucose 124(H) 74 - 99 mg/dL 05/29/2025 12:58 PM EST [facility] Comment:Accuracy of a glucos e result obtained from a capillary whole blood specimen relies upon adequate, non-compromised capillary blood flow. If the capillary glucose result is not consistent with the patient's clinical signs and symptoms, glucose testing should be repeated with either an arterial or venous sample on the glucometer or sent to the main labortory for testing. Comment 05/29/2025 12:58 PM EST [facility] Bilingual Social Worker ID Fernando Curran 12:58 PM EST [facility] Device ID [id number] 05/29/2025 12:58 PM EST [facility] Specimen Type POC Capillary 05/29/2025 12:58 PM EST [facility] Blood Capillary blood specimen / Unknown 05/29/2025 12:57 PM EST 05/29/2025 12:58 PM EST Alison Burns MD LAB POINT OF CARE TE ST DOCKED DEVICE UNSOLICITED RESULTS Final Result [facility] [address] [place] [address] * Pulmonary function testing (05/29/2025 10:20 AM EST) Anatomical Region Laterality Modality PFT Narrative 05/29/2025 1:33 PM EST Pulmonary Function Testing Report Avis Pemberton 54 y.o. underwent pulmonary function testing today at the [facility]. The patient underwent spirometry pre and post bronchodilator administration, lung volumes by body plethysmography, and diffusion capacity testing. All tests were appropriately administered via ATS/ERS criteria. The patient tolerated testing well and put forth a good effort. Spirometry: No obstruction. Lung Volumes: The diffusing capacity for carbon monoxide, corrected for Hgb, is normal. Jonathan Drummond APRN, FELISA PFT ORDERABLES Final Result * (ABNORMAL) POCT glucose meter (05/29/2025 6:53 AM EST) POCT Glucose 122(H) 74 - 99 mg/dL 05/29/2025 6:55 AM EST [facility] Comment:Accuracy of a glucos e result obtained from a capillary whole blood specimen relies upon adequate, non-compromised capillary blood flow. If the capillary glucose result is not consistent with the patient's clinical signs and symptoms, glucose testing should be repeated with either an arterial or venous sample on the glucometer or sent to the main labortory for testing. Comment 05/29/2025 6:55 AM EST [facility] Bilingual Social Worker ID Adalclarissa-Zuleima [email or web address] [id number] 6:55 AM EST [facility] Device ID [id number] 05/29/2025 6:55 AM EST [facility] Specimen Type POC Capillary 05/29/2025 6:55 AM EST [facility] Blood Capillary blood specimen / Unknown 05/29/2025 6:53 AM EST 05/29/2025 6:55 AM EST Alison Burns MD LAB POINT OF CARE TE ST DOCKED DEVICE UNSOLICITED RESULTS Final Result Performing Organization Address City/[facility] Co de Phone Number [facility] [address] [place] [address] * POCT glucose meter (05/29/2025 6:06 AM EST) Pathologist [facility] POCT Glucose 86 74 - 99 mg/dL 05/29/2025 6:07 AM EST [facility] Comment:Accuracy of a glucos e result obtained from a capillary whole blood specimen relies upon adequate, non-compromised capillary blood flow. If the capillary glucose result is not consistent with the patient's clinical signs and symptoms, glucose testing should be repeated with either an arterial or venous sample on the glucometer or sent to the main labortory for testing. Comment 05/29/2025 6:07 AM EST [facility] Bilingual Social Worker ID Debora Rawls 05/29/2025 6:07 AM EST [facility] Device ID [id number] 05/29/2025 6:07 AM EST [facility] Specimen Type POC Capillary 05/29/2025 6:07 AM EST [facility] Blood Capillary blood specimen / Unknown 05/29/2025 6:06 AM EST 05/29/2025 6:07 AM EST Alison Burns MD LAB POINT OF CARE TE ST DOCKED DEVICE UNSOLICITED RESULTS Final Result Performing Organization Address City/[facility] Co de Phone Number [facility] [address] [place] [address] * (ABNORMAL) Prothrombin Time/INR (05/29/2025 3:59 AM EST) Pathologist [facility] Prothrombin Time 19.4(H) 12.0 - 14.3 sec 05/29/2025 4:24 AM EST [facility] INR 1.6(H) 0.9 - 1.1 05/29/2025 4:24 AM EST [facility] Blood Venous blood specimen / Unknown Venipuncture / Unknown 05/29/2025 3:59 AM EST 05/29/2025 4:13 AM EST Narrative [facility] - 05/29/2025 4:24 AM EST OPTIMAL INR RANGES FOR PATIENT ON ORAL ANTICOAGULANT THERAPY Prevention of venous thromboembolism INR 2.0 to 3.0 In patients with heart disease: Atrial fibrillation INR 2.0 to 3.0 Valvular heart disease INR 2.0 to 3.0 Tissue heart valves INR 2.0 to 3.0 Mechanical prosthetic valves INR 2.5 to 3.5 Prevention of recurrent AR INR 2.5 to 3.5 us Alison Burns MD LAB BLOOD ORDERABLES Final Re sult [facility] [address] [place] [address] * (ABNORMAL) Hepatic Function Panel (05/29/2025 3:59 AM EST) Direct Bilirubin, Plasma 1.0(H) <=0.3 mg/dL 05/29/2025 4:38 AM EST [facility] Alkaline Phosphatase, Plasma 140(H) 35 - 104 U/L 05/29/2025 4:38 AM EST [facility] Total Bilirubin, Plasma 1.8(H) 0.2 - 1.1 mg/dL 05/29/2025 4:38 AM EST [facility] Albumin, Plasma 2.3(L) 3.5 - 5.2 g/dL 05/29/2025 4:38 AM EST [facility] Total Protein 5.0(L) 6.3 - 7.9 g/dL 05/29/2025 4:38 AM EST [facility] ALT, Plasma 40(H) 10 - 35 U/L 05/29/2025 4:38 AM EST [facility] AST, Plasma 58(H) 10 - 35 U/L 05/29/2025 4:38 AM EST [facility] Blood Venous blood specimen / Unknown Venipuncture / Unknown 05/29/2025 3:59 AM EST 05/29/2025 4:07 AM EST us Alison Burns MD LAB BLOOD ORDERABLES Final Re sult [facility] [address] [place] [address] * (ABNORMAL) Basic Metabolic Panel, Plasma (05/29/2025 3:59 AM EST) Pathologist [facility] Glucose, Plasma 95 74 - 99 mg/dL 05/29/2025 4:38 AM EST [facility] BUN, Plasma 17 7 - 21 mg/dL 05/29/2025 4:38 AM EST [facility] Creatinine, Plasma 0.97 0.60 - 1.10 mg/dL 05/29/2025 4:38 AM EST [facility] BUN/Creatinine Ratio 18 05/29/2025 4:38 AM EST [facility] Sodium, Plasma 134(L) 136 - 145 mmol/L 05/29/2025 4:38 AM EST [facility] Potassium, Plasma 3.6 3.6 - 4.9 mmol/L 05/29/2025 4:38 AM EST [facility] Chloride, Plasma 105 97 - 107 mmol/L 05/29/2025 4:38 AM EST [facility] CO2, Plasma 22 22 - 29 mmol/L 05/29/2025 4:38 AM EST [facility] Anion Gap 7 6 - 16 mmol/L 05/29/2025 4:38 AM EST [facility] Total Calcium, Plasma 8.0(L) 8.9 - 10.2 mg/dL 05/29/2025 4:38 AM EST [facility] eGFRcr 69.2 mL/min/1.7 3m*2 05/29/2025 4:38 AM EST [facility] Comment:Reported eGFRcr in m L/min/1.73m2 is based the CKD-EPI 2020 equation that does not use a race coefficient. Blood Venous blood specimen / Unknown Venipuncture / Unknown 05/29/2025 3:59 AM EST 05/29/2025 4:07 AM EST Alison Burns MD LAB BLOOD ORDERABLES Final Re sult [facility] [address] [place] [address] * (ABNORMAL) CBC W/O Differential (05/29/2025 3:59 AM EST) WBC Count 4.92 3.70 - 10.30 10*3/uL LAB HEMATOLOGY METHOD 05/29/2025 4:19 AM EST [facility] RBC Count 2.67(L) 3.90 - 5.20 10*6/uL LAB HEMATOLOGY METHOD 05/29/2025 4:19 AM EST [facility] HGB 9.5(L) 11.2 - 15.7 g/dL LAB HEMATOLOGY METHOD 05/29/2025 4:19 AM EST [facility] HCT 27.1(L) 34.0 - 45.0 % LAB HEMATOLOGY METHOD 05/29/2025 4:19 AM EST [facility] Platelet Count 52(L) 155 - 369 10*3/uL LAB HEMATOLOGY METHOD 05/29/2025 4:19 AM EST [facility] MCV 102(H) 79 - 98 fL LAB HEMATOLOGY METHOD 05/29/2025 4:19 AM EST [facility] MCH 35.6(H) 26.0 - 32.0 pg LAB HEMATOLOGY METHOD 05/29/2025 4:19 AM EST [facility] MCHC 35.1 30.7 - 35.5 g/dL LAB HEMATOLOGY METHOD 05/29/2025 4:19 AM EST [facility] RDW 15.9(H) 11.5 - 14.5 % LAB HEMATOLOGY METHOD 05/29/2025 4:19 AM EST [facility] MPV 9.4 8.8 - 12.5 fL LAB HEMATOLOGY METHOD 05/29/2025 4:19 AM EST [facility] nRBC 0.0 <=0.0 per 100 WBCs LAB HEMATOLOGY METHOD 05/29/2025 4:19 AM EST [facility] Blood Venous blood specimen / Unknown Venipuncture / Unknown 05/29/2025 3:59 AM EST 05/29/2025 4:11 AM EST us Alison Burns MD LAB BLOOD ORDERABLES Final Re sult [facility] [address] [place] [address] * ABO/Rh Transplant (05/29/2025 3:59 AM EST) ABO/Rh A Positive 05/29/2025 4:19 AM EST [facility] Blood Venous blood specimen / Unknown Venipuncture / Unknown 05/29/2025 3:59 AM EST 05/29/2025 4:19 AM EST Jonathan Drummond APRN, DNP LAB BLOOD BANK T EST ORDERABLES Final Result Performing Organization Address City/[facility]/ZIP Co de Phone Number BLOOD BANK [address] [place] [address], * (ABNORMAL) POCT glucose meter (05/28/2025 8:04 PM EST) POCT Glucose 107(H) 74 - 99 mg/dL 05/28/2025 8:12 PM EST [facility] Comment:Accuracy of a glucos e result obtained from a capillary whole blood specimen relies upon adequate, non-compromised capillary blood flow. If the capillary glucose result is not consistent with the patient's clinical signs and symptoms, glucose testing should be repeated with either an arterial or venous sample on the glucometer or sent to the main labortory for testing. Comment 05/28/2025 8:12 PM EST [facility] Bilingual Social Worker ID [email or web address] 05/28/2025 8:12 PM EST [facility] Device ID [id number] 05/28/2025 8:12 PM EST [facility] Specimen Type POC Capillary 05/28/2025 8:12 PM EST [facility] Blood Capillary blood specimen / Unknown 05/28/2025 8:04 PM EST 05/28/2025 8:12 PM EST Alison Burns MD LAB POINT OF CARE TE ST DOCKED DEVICE UNSOLICITED RESULTS Final Result Performing Organization Address City/[facility]/ZIP Co de Phone Number [facility] [address] [place] [address] * (ABNORMAL) POCT glucose meter (05/28/2025 4:44 PM EST) POCT Glucose 172(H) 74 - 99 mg/dL 05/28/2025 4:46 PM EST [facility] Comment:Accuracy of a glucos e result obtained from a capillary whole blood specimen relies upon adequate, non-compromised capillary blood flow. If the capillary glucose result is not consistent with the patient's clinical signs and symptoms, glucose testing should be repeated with either an arterial or venous sample on the glucometer or sent to the main labortory for testing. Comment 05/28/2025 4:46 PM EST [facility] Bilingual Social Worker ID Marlena Mcclellan 05/28/2025 4:46 PM EST [facility] Device ID [id number] 05/28/2025 4:46 PM EST [facility] Specimen Type POC Capillary 05/28/2025 4:46 PM EST [facility] Blood Capillary blood specimen / Unknown 05/28/2025 4:44 PM EST 05/28/2025 4:46 PM EST Alison Burns MD LAB POINT OF CARE TE ST DOCKED DEVICE UNSOLICITED RESULTS Final Result [facility] [address] [place] [address] * ECHO, ADULT TRANSTHORACIC COMPLETE (05/28/2025 2:43 PM EST) BSA 1.98 m2 [facility] Height 163.0 [facility] Weight 93.0 [facility] LVIDd 46 mm [facility] LVIDs 31 mm [facility] IVSd 7 mm [facility] LVPWd 9 mm [facility] LV MASS(C)D 117 g [facility] ISC[facility] CV ECHO LV MASS INDEX 59 g/m2 [facility] LV RWT 0.35 mm [facility] LV EDV(MOD-4ch) 74 mL [facility] LV ESV(MOD4ch) 31 mL [facility]SCV EF(MOD-sp4) 58 % [facility] LV EDV(MOD-2ch) 66 mL [facility] LV ESV(MOD2ch) 25 mL [facility]SCV EF(MOD-sp2) 62 % [facility]SCV EDV(MOD-bp) 70 mL [facility]SCV ESV(MOD-bp) 28 mL [facility]SCV EF(MOD-bp) 60 % [facility] LVOT diam 25 mm [facility] LVOT AREA 4.9 cm2 [facility] LV V1 VTI 24.7 cm [facility] SV(LVOT) 121 mL [facility] MV E Vmax 72.0 cm/s [facility] MV A Vmax 76.3 cm/s [facility] MV E/A 0.9 cm/s [facility] TR Vmax 171.5 cm/s [facility] RV s' [place] 12.7 cm/s [facility] TAPSE 25 mm [facility] TR Max PG 12 mmHG [facility] PA acc time 120 msec [facility] mean PAP 25 mmHg [facility] LV V1 Vmax 129.0 cm/s [facility] Ao V2 VTI 28.6 cm [facility] Ao mean PG 5 mmHg [facility] Ao V2 Vmax 151.0 cm/s [facility] Ao max PG 9 mmHg [facility] AV VTI Index 0.86 [facility] PENG(I,D) 4.2 cm2 [facility] PENG(VTI)/BSA_ph l 2.1 cm2/m2 [facility] MV dec time 250 ms [facility] MV P1/2t 73 ms [facility] MVA(P1/2t) 3.0 cm2 [facility] Ao Root Diam 29 mm [facility] Asc Ao Diam 35 mm [facility] PA ND(ACCEL) 23.4 mmHg [facility] LV mean PG 4.0 mmHG [facility] LV V1 mean 85.9 cm/sec [facility] LV max PG 6.7 mmHg [facility] LVLs ap2 6.7 mm [facility] AV-pr VR 0.9 [facility] Ao V2 mean 101.0 cm/s [facility] Anatomical Region Laterality Modality Echocardiography Narrative 05/28/2025 3:42 PM EST Left Ventricle: The left ventricle is not well visualized. Based on the linear dimension and/or 2D volumes, the left ventricle is normal in size. There is normal left ventricular myocardial thickness and mass. No left ventricular mass or thrombus is seen. The left ventricular systolic function is normal. The LVEF as measured by biplane volume is 60%. The left ventricular filling pressure is normal. Due to poor image quality, comprehensive regional wall motion was not interpretable; but no focal wall motion abnormalities were seen in the visualized segments. Left Atrium: The left atrium is dilated by visual assessment. There is appearance of a few agitated saline bubbles in the left heart after maneuvers to increase right sided pressure consistent with a small patent foramen ovale (PFO) or mild transpulmonary transit. There is no recent study available for direct [id number] comparison. Left Ventricle The left ventricle is not well visualized. Based on the linear dimension and/or 2D volumes, the left ventricle is normal in size. There is normal left ventricular myocardial thickness and mass. No left ventricular mass or thrombus is seen. The left ventricular systolic function is normal. The LVEF as measured by biplane volume is 60%. The left ventricular filling pressure is normal. Due to poor image quality, comprehensive regional wall motion was not interpretable; but no focal wall motion abnormalities were seen in the visualized segments. Right Ventricle The right ventricle is normal in size. The right ventricular systolic function is normal. Right ventricular systolic pressure is normal (<35mmHg). Left Atrium The left atrium is dilated by visual assessment. There is appearance of a few agitated saline bubbles in the left heart after maneuvers to increase right sided pressure consistent with a small patent foramen ovale (PFO) or mild transpulmonary transit. Right Atrium The right atrial size is normal. IVC/SVC Based on the IVC size and respiratory variation, the estimated right atrial pressure is 3mmHg. Mitral Valve The mitral valve leaflets are normal in appearance with no evidence of mitral valve prolapse. There is trace mitral regurgitation. There is no mitral stenosis. Tricuspid Valve The tricuspid valve is normal in appearance. There is trace tricuspid regurgitation. There is no tricuspid stenosis. Aortic Valve The aortic valve appears to be trileaflet. There is no valvular regurgitation. There is no hemodynamically significant valvular aortic stenosis. Pulmonic Valve The pulmonic valve is normal in appearance. There is trace pulmonic regurgitation. There is no pulmonic stenosis. Pericardium No pericardial effusion. Great Vessels The aortic root is normal in size. The sinus of Valsalva (aortic root) diameter is 29 mm by leading edge to leading edge method. In the maximally visualized portion, the ascending aorta appears normal in size. The aortic arch is not well visualized. The main pulmonary artery is not well visualized. Study Details A complete transthoracic echocardiogram using two-dimensional (2D), m-mode, color and spectral flow Doppler imaging was performed. During the study the apical, parasternal, subcostal and suprasternal view was captured. Saline (bubble) contrast was used during the study. Overall the study quality was adequate. Height: 163.0 cm. Weight: 93.0 kg. BSA: 1.98 m2. Study Recommendation There is no recent study available for direct [id number] comparison. Wall Scoring Baseline Score Index: N/A Tram/Mary us Jonathan Drummond [employer]SULT[employer], DNP CV ECHO PROCEDUR ES Final Result * (ABNORMAL) POCT glucose meter (05/28/2025 12:51 PM EST) POCT Glucose 147(H) 74 - 99 mg/dL 05/28/2025 12:54 PM EST [facility] Comment:Accuracy of a glucos e result obtained from a capillary whole blood specimen relies upon adequate, non-compromised capillary blood flow. If the capillary glucose result is not consistent with the patient's clinical signs and symptoms, glucose testing should be repeated with either an arterial or venous sample on the glucometer or sent to the main labortory for testing. Comment 05/28/2025 12:54 PM EST [facility] Bilingual Social Worker ID Oly Mendiola 05/28/20 12:54 PM EST [facility] Device ID [id number] 05/28/2025 12:54 PM EST [facility] Specimen Type POC Capillary 05/28/2025 12:54 PM EST [facility] Blood Capillary blood specimen / Unknown 05/28/2025 12:51 PM EST 05/28/2025 12:54 PM EST us Alison Burns MD LAB POINT OF CARE TE ST DOCKED DEVICE UNSOLICITED RESULTS Final Result Performing Organization Address City/State/[facility] de Phone Number [facility] [address] [place] [address] * (ABNORMAL) POCT glucose meter (05/28/2025 7:36 AM EST) POCT Glucose 143(H) 74 - 99 mg/dL 05/28/2025 7:38 AM EST [facility] Comment:Accuracy of a glucos e result obtained from a capillary whole blood specimen relies upon adequate, non-compromised capillary blood flow. If the capillary glucose result is not consistent with the patient's clinical signs and symptoms, glucose testing should be repeated with either an arterial or venous sample on the glucometer or sent to the main labortory for testing. Comment 05/28/2025 7:38 AM EST [facility] Bilingual Social Worker ID Marlena Mcclellan 05/28/2025 7:38 AM EST [facility] Device ID [id number] 05/28/2025 7:38 AM EST [facility] Specimen Type POC Capillary 05/28/2025 7:38 AM EST [facility] Blood Capillary blood specimen / Unknown 05/28/2025 7:36 AM EST 05/28/2025 7:38 AM EST Alison Burns MD LAB POINT OF CARE TE ST DOCKED DEVICE UNSOLICITED RESULTS Final Result [facility] [address] [place] [address] * (ABNORMAL) Basic Metabolic Panel, Plasma (05/28/2025 3:52 AM EST) Glucose, Plasma 122(H) 74 - 99 mg/dL 05/28/2025 4:44 AM EST [facility] BUN, Plasma 18 7 - 21 mg/dL 05/28/2025 4:44 AM EST [facility] Creatinine, Plasma 0.90 0.60 - 1.10 mg/dL 05/28/2025 4:44 AM EST [facility] BUN/Creatinine Ratio 20 05/28/2025 4:44 AM EST [facility] Sodium, Plasma 132(L) 136 - 145 mmol/L 05/28/2025 4:44 AM EST [facility] Potassium, Plasma 3.7 3.6 - 4.9 mmol/L 05/28/2025 4:44 AM EST [facility] Chloride, Plasma 103 97 - 107 mmol/L 05/28/2025 4:44 AM EST [facility] CO2, Plasma 22 22 - 29 mmol/L 05/28/2025 4:44 AM EST [facility] Anion Gap 7 6 - 16 mmol/L 05/28/2025 4:44 AM EST [facility] Total Calcium, Plasma 8.2(L) 8.9 - 10.2 mg/dL 05/28/2025 4:44 AM EST [facility] eGFRcr 75.7 mL/min/1.7 3m*2 05/28/2025 4:44 AM EST [facility] Comment:Reported eGFRcr in m L/min/1.73m2 is based the CKD-EPI 2020 equation that does not use a race coefficient. Blood Venous blood specimen / Unknown Venipuncture / Unknown 05/28/2025 3:52 AM EST 05/28/2025 4:17 AM EST us Alison Burns MD LAB BLOOD ORDERABLES Final Re sult [facility] [address] [place] [address] * (ABNORMAL) CBC W/O Differential (05/28/2025 3:52 AM EST) WBC Count 4.20 3.70 - 10.30 10*3/uL LAB HEMATOLOGY METHOD 05/28/2025 4:22 AM EST [facility] RBC Count 2.94(L) 3.90 - 5.20 10*6/uL LAB HEMATOLOGY METHOD 05/28/2025 4:22 AM EST [facility] HGB 10.4(L) 11.2 - 15.7 g/dL LAB HEMATOLOGY METHOD 05/28/2025 4:22 AM EST [facility] HCT 30.2(L) 34.0 - 45.0 % LAB HEMATOLOGY METHOD 05/28/2025 4:22 AM EST [facility] Platelet Count 59(L) 155 - 369 10*3/uL LAB HEMATOLOGY METHOD 05/28/2025 4:22 AM EST [facility] MCV 103(H) 79 - 98 fL LAB HEMATOLOGY METHOD 05/28/2025 4:22 AM EST [facility] MCH 35.4(H) 26.0 - 32.0 pg LAB HEMATOLOGY METHOD 05/28/2025 4:22 AM EST [facility] MCHC 34.4 30.7 - 35.5 g/dL LAB HEMATOLOGY METHOD 05/28/2025 4:22 AM EST [facility] RDW 16.0(H) 11.5 - 14.5 % LAB HEMATOLOGY METHOD 05/28/2025 4:22 AM EST [facility] MPV 9.3 8.8 - 12.5 fL LAB HEMATOLOGY METHOD 05/28/2025 4:22 AM EST [facility] nRBC 0.0 <=0.0 per 100 WBCs LAB HEMATOLOGY METHOD 05/28/2025 4:22 AM EST [facility] Blood Venous blood specimen / Unknown Venipuncture / Unknown 05/28/2025 3:52 AM EST 05/28/2025 4:17 AM EST Alison Burns MD LAB BLOOD ORDERABLES Final Re sult Performing Organization Address [facility] de Phone Number [facility] [address] [place] [address] * (ABNORMAL) Prothrombin Time/INR (05/28/2025 3:52 AM EST) Prothrombin Time 17.8(H) 12.0 - 14.3 sec 05/28/2025 4:32 AM EST [facility] INR 1.4(H) 0.9 - 1.1 05/28/2025 4:32 AM EST [facility] Blood Venous blood specimen / Unknown Venipuncture / Unknown 05/28/2025 3:52 AM EST 05/28/2025 4:17 AM EST Narrative [facility] - 05/28/2025 4:32 AM EST OPTIMAL INR RANGES FOR PATIENT ON ORAL ANTICOAGULANT THERAPY Prevention of venous thromboembolism INR 2.0 to 3.0 In patients with heart disease: Atrial fibrillation INR 2.0 to 3.0 Valvular heart disease INR 2.0 to 3.0 Tissue heart valves INR 2.0 to 3.0 Mechanical prosthetic valves INR 2.5 to 3.5 Prevention of recurrent AR INR 2.5 to 3.5 Alison Burns MD LAB BLOOD ORDERABLES Final Re sult Performing Organization Address City/[facility] Co de Phone Number [facility] [address] [place] [address] * (ABNORMAL) Hepatic Function Panel (05/28/2025 3:52 AM EST) Direct Bilirubin, Plasma 1.1(H) <=0.3 mg/dL 05/28/2025 4:44 AM EST [facility] Alkaline Phosphatase, Plasma 162(H) 35 - 104 U/L 05/28/2025 4:44 AM EST [facility] Total Bilirubin, Plasma 2.0(H) 0.2 - 1.1 mg/dL 05/28/2025 4:44 AM EST [facility] Albumin, Plasma 2.6(L) 3.5 - 5.2 g/dL 05/28/2025 4:44 AM EST [facility] Total Protein 5.5(L) 6.3 - 7.9 g/dL 05/28/2025 4:44 AM EST [facility] ALT, Plasma 45(H) 10 - 35 U/L 05/28/2025 4:44 AM EST [facility] AST, Plasma 64(H) 10 - 35 U/L 05/28/2025 4:44 AM EST [facility] Blood Venous blood specimen / Unknown Venipuncture / Unknown 05/28/2025 3:52 AM EST 05/28/2025 4:17 AM EST Alison Burns MD LAB BLOOD ORDERABLES Final Re sult [facility] [address] [place] [address] * (ABNORMAL) POCT glucose meter (05/27/2025 8:15 PM EST) POCT Glucose 145(H) 74 - 99 mg/dL 05/27/2025 8:16 PM EST [facility] Comment:Accuracy of a glucos e result obtained from a capillary whole blood specimen relies upon adequate, non-compromised capillary blood flow. If the capillary glucose result is not consistent with the patient's clinical signs and symptoms, glucose testing should be repeated with either an arterial or venous sample on the glucometer or sent to the main labortory for testing. Comment 05/27/2025 8:16 PM EST [facility] Bilingual Social Worker ID MaffeThanh [email or web address] 05/27/2025 8:16 PM EST [facility] Device ID [id number] 05/27/2025 8:16 PM EST [facility] Specimen Type POC Capillary 05/27/2025 8:16 PM EST [facility] Blood Capillary blood specimen / Unknown 05/27/2025 8:15 PM EST 05/27/2025 8:16 PM EST Alison Burns MD LAB POINT OF CARE TE ST DOCKED DEVICE UNSOLICITED RESULTS Final Result [facility] [address] [place] [address] * (ABNORMAL) POCT glucose meter (05/27/2025 4:49 PM EST) [facility] POCT Glucose 125(H) 74 - 99 mg/dL 05/27/2025 4:50 PM EST [facility] Comment:Accuracy of a glucos e result obtained from a capillary whole blood specimen relies upon adequate, non-compromised capillary blood flow. If the capillary glucose result is not consistent with the patient's clinical signs and symptoms, glucose testing should be repeated with either an arterial or venous sample on the glucometer or sent to the main labortory for testing. Comment 05/27/2025 4:50 PM EST [facility] Bilingual Social Worker ID Lien Purdy 05/27/2025 4:50 PM EST [facility] Device ID [id number] 05/27/2025 4:50 PM EST [facility] Specimen Type POC Capillary 05/27/2025 4:50 PM EST [facility] Blood Capillary blood specimen / Unknown 05/27/2025 4:49 PM EST 05/27/2025 4:50 PM EST Alison Burns MD LAB POINT OF CARE TE ST DOCKED DEVICE UNSOLICITED RESULTS Final Result [facility] [address] [place] [address] * (ABNORMAL) POCT glucose meter (05/27/2025 11:23 AM EST) [facility] POCT Glucose 150(H) 74 - 99 mg/dL 05/27/2025 11:38 AM EST [facility] Comment:Accuracy of a glucos e result obtained from a capillary whole blood specimen relies upon adequate, non-compromised capillary blood flow. If the capillary glucose result is not consistent with the patient's clinical signs and symptoms, glucose testing should be repeated with either an arterial or venous sample on the glucometer or sent to the main labortory for testing. Comment 05/27/2025 11:38 AM EST [facility] Bilingual Social Worker ID Lien Purdy 05/27/2025 11:38 AM EST [facility] Device ID [id number] 05/27/2025 11:38 AM EST [facility] Specimen Type POC Capillary 05/27/2025 11:38 AM EST [facility] Blood Capillary blood specimen / Unknown 05/27/2025 11:23 AM EST 05/27/2025 11:38 AM EST Alison Burns MD LAB POINT OF CARE TE ST DOCKED DEVICE UNSOLICITED RESULTS Final Result Performing Organization Address City/[facility] Co de Phone Number [facility] [address] [place] [address] * (ABNORMAL) POCT glucose meter (05/27/2025 8:04 AM EST) Pathologist [facility] POCT Glucose 135(H) 74 - 99 mg/dL 05/27/2025 8:06 AM EST [facility] Comment:Accuracy of a glucos e result obtained from a capillary whole blood specimen relies upon adequate, non-compromised capillary blood flow. If the capillary glucose result is not consistent with the patient's clinical signs and symptoms, glucose testing should be repeated with either an arterial or venous sample on the glucometer or sent to the main labortory for testing. Comment 05/27/2025 8:06 AM EST [facility] Bilingual Social Worker ID Gurwinder Lien 05/27/2025 8:06 AM EST [facility] Device ID [id number] 05/27/2025 8:06 AM EST [facility] Specimen Type POC Capillary 05/27/2025 8:06 AM EST [facility] Blood Capillary blood specimen / Unknown 05/27/2025 8:04 AM EST 05/27/2025 8:06 AM EST Alison Burns MD LAB POINT OF CARE TE ST DOCKED DEVICE UNSOLICITED RESULTS Final Result Performing Organization Address City/[facility] Co de Phone Number [facility] [address] [place] [address] * (ABNORMAL) Prothrombin Time/INR (05/27/2025 3:32 AM EST) Prothrombin Time 19.2(H) 12.0 - 14.3 sec 05/27/2025 4:03 AM EST [facility] INR 1.6(H) 0.9 - 1.1 05/27/2025 4:03 AM EST [facility] Blood Venous blood specimen / Unknown Venipuncture / Unknown 05/27/2025 3:32 AM EST 05/27/2025 3:44 AM EST [facility] - 05/27/2025 4:03 AM EST OPTIMAL INR RANGES FOR PATIENT ON ORAL ANTICOAGULANT THERAPY Prevention of venous thromboembolism INR 2.0 to 3.0 In patients with heart disease: Atrial fibrillation INR 2.0 to 3.0 Valvular heart disease INR 2.0 to 3.0 Tissue heart valves INR 2.0 to 3.0 Mechanical prosthetic valves INR 2.5 to 3.5 Prevention of recurrent AR INR 2.5 to 3.5 Alison Burns MD LAB BLOOD ORDERABLES Final Re sult Performing Organization Address City/State/[facility] Co de Phone Number [facility] [address] [place] [address] * (ABNORMAL) Hepatic Function Panel (05/27/2025 3:32 AM EST) Direct Bilirubin, Plasma 1.1(H) <=0.3 mg/dL 05/27/2025 4:04 AM EST [facility] Alkaline Phosphatase, Plasma 162(H) 35 - 104 U/L 05/27/2025 4:04 AM EST [facility] Total Bilirubin, Plasma 1.8(H) 0.2 - 1.1 mg/dL 05/27/2025 4:04 AM EST [facility] Albumin, Plasma 2.3(L) 3.5 - 5.2 g/dL 05/27/2025 4:04 AM EST [facility] Total Protein 5.1(L) 6.3 - 7.9 g/dL 05/27/2025 4:04 AM EST [facility] ALT, Plasma 45(H) 10 - 35 U/L 05/27/2025 4:04 AM EST [facility] AST, Plasma 60(H) 10 - 35 U/L 05/27/2025 4:04 AM EST [facility] Blood Venous blood specimen / Unknown Venipuncture / Unknown 05/27/2025 3:32 AM EST 05/27/2025 3:44 AM EST us Alison Burns MD LAB BLOOD ORDERABLES Final Re sult Performing Organization Address [facility] Co de Phone Number [facility] [address] [place] [address] * Phosphorus, Plasma (05/27/2025 3:32 AM EST) Phosphorus, Plasma 2.6 2.5 - 4.5 mg/dL 05/27/2025 4:04 AM EST [facility] Blood Venous blood specimen / Unknown Venipuncture / Unknown 05/27/2025 3:32 AM EST 05/27/2025 3:44 AM EST Alison Burns MD LAB BLOOD ORDERABLES Final Re sult Performing Organization Address [facility] Phone Number [facility] [address] [place] [address] * Magnesium, Plasma (05/27/2025 3:32 AM EST) Magnesium, Plasma 2.0 1.9 - 2.4 mg/dL 05/27/2025 4:04 AM EST [facility] Blood Venous blood specimen / Unknown Venipuncture / Unknown 05/27/2025 3:32 AM EST 05/27/2025 3:44 AM EST Alison Burns MD LAB BLOOD ORDERABLES Final Re sult Performing Organization Address [facility] Phone Number [facility] [address] [place] [address] * (ABNORMAL) Basic Metabolic Panel, Plasma (05/27/2025 3:32 AM EST) Glucose, Plasma 124(H) 74 - 99 mg/dL 05/27/2025 4:04 AM EST [facility] BUN, Plasma 18 7 - 21 mg/dL 05/27/2025 4:04 AM EST [facility] Creatinine, Plasma 0.92 0.60 - 1.10 mg/dL 05/27/2025 4:04 AM EST [facility] BUN/Creatinine Ratio 20 05/27/2025 4:04 AM EST [facility] Sodium, Plasma 128(L) 136 - 145 mmol/L 05/27/2025 4:04 AM EST [facility] Potassium, Plasma 3.8 3.6 - 4.9 mmol/L 05/27/2025 4:04 AM EST [facility] Chloride, Plasma 103 97 - 107 mmol/L 05/27/2025 4:04 AM EST [facility] CO2, Plasma 21(L) 22 - 29 mmol/L 05/27/2025 4:04 AM EST [facility] Anion Gap 4(L) 6 - 16 mmol/L 05/27/2025 4:04 AM EST [facility] Total Calcium, Plasma 8.0(L) 8.9 - 10.2 mg/dL 05/27/2025 4:04 AM EST [facility] eGFRcr 73.7 mL/min/1.7 3m*2 05/27/2025 4:04 AM EST [facility] Comment:Reported eGFRcr in m L/min/1.73m2 is based the CKD-EPI 2020 equation that does not use a race coefficient. Blood Venous blood specimen / Unknown Venipuncture / Unknown 05/27/2025 3:32 AM EST 05/27/2025 3:44 AM EST us Alison Burns MD LAB BLOOD ORDERABLES Final Re sult [facility] [address] [place] [id number] * (ABNORMAL) CBC W/O Differential (05/27/2025 3:32 AM EST) WBC Count 4.67 3.70 - 10.30 10*3/uL LAB HEMATOLOGY METHOD 05/27/2025 3:47 AM EST [facility] RBC Count 2.74(L) 3.90 - 5.20 10*6/uL LAB HEMATOLOGY METHOD 05/27/2025 3:47 AM EST [facility] HGB 9.9(L) 11.2 - 15.7 g/dL LAB HEMATOLOGY METHOD 05/27/2025 3:47 AM EST [facility] HCT 28.4(L) 34.0 - 45.0 % LAB HEMATOLOGY METHOD 05/27/2025 3:47 AM EST [facility] Platelet Count 61(L) 155 - 369 10*3/uL LAB HEMATOLOGY METHOD 05/27/2025 3:47 AM EST [facility] MCV 104(H) 79 - 98 fL LAB HEMATOLOGY METHOD 05/27/2025 3:47 AM EST [facility] MCH 36.1(H) 26.0 - 32.0 pg LAB HEMATOLOGY METHOD 05/27/2025 3:47 AM EST [facility] MCHC 34.9 30.7 - 35.5 g/dL LAB HEMATOLOGY METHOD 05/27/2025 3:47 AM EST [facility] RDW 16.0(H) 11.5 - 14.5 % LAB HEMATOLOGY METHOD 05/27/2025 3:47 AM EST [facility] MPV 9.4 8.8 - 12.5 fL LAB HEMATOLOGY METHOD 05/27/2025 3:47 AM EST [facility] nRBC 0.0 <=0.0 per 100 WBCs LAB HEMATOLOGY METHOD 05/27/2025 3:47 AM EST [facility] Blood Venous blood specimen / Unknown Venipuncture / Unknown 05/27/2025 3:32 AM EST 05/27/2025 3:44 AM EST Alison Burns MD LAB BLOOD ORDERABLES Final Re sult [facility] [address] [place] [id number] * (ABNORMAL) POCT glucose meter (05/26/2025 8:03 PM EST) Pathologist [facility] POCT Glucose 138(H) 74 - 99 mg/dL 05/26/2025 8:05 PM EST [facility] Comment:Accuracy of a glucos e result obtained from a capillary whole blood specimen relies upon adequate, non-compromised capillary blood flow. If the capillary glucose result is not consistent with the patient's clinical signs and symptoms, glucose testing should be repeated with either an arterial or venous sample on the glucometer or sent to the main labortory for testing. Comment 05/26/2025 8:05 PM EST [facility] Bilingual Social Worker ID Thanh Le 05/26/2025 8:05 PM EST [facility] Device ID [id number] 05/26/2025 8:05 PM EST [facility] Specimen Type POC Capillary 05/26/2025 8:05 PM EST [facility] Blood Capillary blood specimen / Unknown 05/26/2025 8:03 PM EST 05/26/2025 8:05 PM EST Alison Burns MD LAB POINT OF CARE TE ST DOCKED DEVICE UNSOLICITED RESULTS Final Result Performing Organization Address City/[facility] Co de Phone Number [facility] [address] [place] [address] * (ABNORMAL) POCT glucose meter (05/26/2025 4:36 PM EST) [facility] POCT Glucose 130(H) 74 - 99 mg/dL 05/26/2025 4:37 PM EST [facility] Comment:Accuracy of a glucos e result obtained from a capillary whole blood specimen relies upon adequate, non-compromised capillary blood flow. If the capillary glucose result is not consistent with the patient's clinical signs and symptoms, glucose testing should be repeated with either an arterial or venous sample on the glucometer or sent to the main labortory for testing. Comment 05/26/2025 4:37 PM EST [facility] Bilingual Social Worker ID Marlena Mcclellan 05/26/2025 4:37 PM EST [facility] Device ID [id number] 05/26/2025 4:37 PM EST [facility] Specimen Type POC Capillary 05/26/2025 4:37 PM EST [facility] Blood Capillary blood specimen / Unknown 05/26/2025 4:36 PM EST 05/26/2025 4:37 PM EST Alison Burns MD LAB POINT OF CARE TE ST DOCKED DEVICE UNSOLICITED RESULTS Final Result Performing Organization Address City/[facility] Co de Phone Number [facility] [address] [place] [address] * Osmolality, urine (05/26/2025 2:53 PM EST) [facility] Osmolality, Urine 309 50 - 1,200 mOsm/kg 05/26/2025 4:29 PM EST [facility] Urine Urine specimen obtained by clean catch procedure / Unknown Non-blood Collection / Unknown 05/26/2025 2:53 PM EST 05/26/2025 3:10 PM EST Alison Burns MD LAB URINE ORDERABLES Final Re sult Performing Organization Address City/[facility]/ZIP Co de Phone Number [facility] [address] [place] [address] * Creatinine, urine, random (05/26/2025 2:53 PM EST) Creatinine, Urine 40 mg/dL 05/26/2025 3:35 PM EST [facility] Urine Urine specimen obtained by clean catch procedure / Unknown Non-blood Collection / Unknown 05/26/2025 2:53 PM EST 05/26/2025 3:10 PM EST Alison Burns MD LAB URINE ORDERABLES Final Re sult Performing Organization Address City/[facility] Co de Phone Number [facility] [address] [place] [address] * Sodium, urine, random (05/26/2025 2:53 PM EST) Sodium, Urine <20 mmol/L 05/26/2025 3:35 PM EST [facility] Urine Urine specimen obtained by clean catch procedure / Unknown Non-blood Collection / Unknown 05/26/2025 2:53 PM EST 05/26/2025 3:10 PM EST Alison Burns MD LAB URINE ORDERABLES Final Re sult Performing Organization Address City/[facility] Co de Phone Number [facility] [address] [place] [address] * (ABNORMAL) POCT glucose meter (05/26/2025 11:53 AM EST) POCT Glucose 108(H) 74 - 99 mg/dL 05/26/2025 11:55 AM EST [facility] Comment:Accuracy of a glucos e result obtained from a capillary whole blood specimen relies upon adequate, non-compromised capillary blood flow. If the capillary glucose result is not consistent with the patient's clinical signs and symptoms, glucose testing should be repeated with either an arterial or venous sample on the glucometer or sent to the main labortory for testing. Comment 05/26/2025 11:55 AM EST [facility] Bilingual Social Worker ID Marlena Mcclellan 05/26/2025 11:55 AM EST [facility] Device ID [id number] 05/26/2025 11:55 AM EST [facility] Specimen Type POC Capillary 05/26/2025 11:55 AM EST [facility] Blood Capillary blood specimen / Unknown 05/26/2025 11:53 AM EST 05/26/2025 11:55 AM EST us Alison Burns MD LAB POINT OF CARE TE ST DOCKED DEVICE UNSOLICITED RESULTS Final Result Performing Organization Address City/State/[facility] Co de Phone Number [facility] [address] [place] [address] * (ABNORMAL) POCT glucose meter (05/26/2025 7:34 AM EST) [facility] POCT Glucose 169(H) 74 - 99 mg/dL 05/26/2025 7:36 AM EST [facility] Comment:Accuracy of a glucos e result obtained from a capillary whole blood specimen relies upon adequate, non-compromised capillary blood flow. If the capillary glucose result is not consistent with the patient's clinical signs and symptoms, glucose testing should be repeated with either an arterial or venous sample on the glucometer or sent to the main labortory for testing. Comment 05/26/2025 7:36 AM EST [facility] Bilingual Social Worker ID Marlena Mcclellan 05/26/2025 7:36 AM EST [facility] Device ID [id number] 05/26/2025 7:36 AM EST [facility] Specimen Type POC Capillary 05/26/2025 7:36 AM EST [facility] Blood Capillary blood specimen / Unknown 05/26/2025 7:34 AM EST 05/26/2025 7:36 AM EST us Alison Burns MD LAB POINT OF CARE TE ST DOCKED DEVICE UNSOLICITED RESULTS Final Result Performing Organization Address City/[facility]/ZIP Co de Phone Number [facility] [address] [place] [address] * (ABNORMAL) Direct Bilirubin, Plasma (05/26/2025 5:40 AM EST) Direct Bilirubin, Plasma 1.4(H) <=0.3 mg/dL 05/26/2025 9:19 AM EST [facility] Blood Venous blood specimen / Unknown Venipuncture / Unknown 05/26/2025 5:40 AM EST 05/26/2025 5:59 AM EST Alison Burns MD LAB BLOOD ORDERABLES Final Re sult Performing Organization Address [facility] Co de Phone Number [facility] [address] [place] [address] * (ABNORMAL) Prothrombin Time/INR (05/26/2025 5:40 AM EST) Prothrombin Time 18.0(H) 12.0 - 14.3 sec 05/26/2025 6:10 AM EST [facility] INR 1.4(H) 0.9 - 1.1 05/26/2025 6:10 AM EST [facility] Blood Venous blood specimen / Unknown Venipuncture / Unknown 05/26/2025 5:40 AM EST 05/26/2025 5:59 AM EST Narrative [facility] - 05/26/2025 6:10 AM EST OPTIMAL INR RANGES FOR PATIENT ON ORAL ANTICOAGULANT THERAPY Prevention of venous thromboembolism INR 2.0 to 3.0 In patients with heart disease: Atrial fibrillation INR 2.0 to 3.0 Valvular heart disease INR 2.0 to 3.0 Tissue heart valves INR 2.0 to 3.0 Mechanical prosthetic valves INR 2.5 to 3.5 Prevention of recurrent AR INR 2.5 to 3.5 us Alison Burns MD LAB BLOOD ORDERABLES Final Re sult Performing Organization Address City/[facility] Co de Phone Number [facility] [address] [place] [address] * (ABNORMAL) Comprehensive Metabolic Panel, Plasma (05/26/2025 5:40 AM EST) Glucose, Plasma 158(H) 74 - 99 mg/dL 05/26/2025 9:19 AM [facility] BUN, Plasma 22(H) 7 - 21 mg/dL 05/26/2025 9:19 AM [facility] Creatinine, Plasma 0.93 0.60 - 1.10 mg/dL 05/26/2025 9:19 AM [facility] BUN/Creatinine Ratio 24 05/26/2025 9:19 AM [facility] Sodium, Plasma 125(L) 136 - 145 mmol/L 05/26/2025 9:19 AM [facility] Potassium, Plasma 4.3 3.6 - 4.9 mmol/L 05/26/2025 9:19 AM [facility] Chloride, Plasma 99 97 - 107 mmol/L 05/26/2025 9:19 AM [facility] CO2, Plasma 19(L) 22 - 29 mmol/L 05/26/2025 9:19 AM [facility] Anion Gap 7 6 - 16 mmol/L 05/26/2025 9:19 AM [facility] Total Calcium, Plasma 8.2(L) 8.9 - 10.2 mg/dL 05/26/2025 9:19 AM [facility] Total Protein 5.8(L) 6.3 - 7.9 g/dL 05/26/2025 9:19 AM [facility] Albumin, Plasma 2.7(L) 3.5 - 5.2 g/dL 05/26/2025 9:19 AM [facility] AST, Plasma 70(H) 10 - 35 U/L 05/26/2025 9:19 AM [facility] ALT, Plasma 51(H) 10 - 35 U/L 05/26/2025 9:19 AM [facility] Alkaline Phosphatase, Plasma 200(H) 35 - 104 U/L 05/26/2025 9:19 AM [facility] Total Bilirubin, Plasma 2.6(H) 0.2 - 1.1 mg/dL 05/26/2025 9:19 AM [facility] eGFRcr 72.7 mL/min/1.7 3m*2 05/26/2025 9:19 AM [facility] Comment:Reported eGFRcr in m L/min/1.73m2 is based the CKD-EPI 2020 equation that does not use a race coefficient. Blood Venous blood specimen / Unknown Venipuncture / Unknown 05/26/2025 5:40 AM EST 05/26/2025 5:59 AM EST us Alison Burns MD LAB BLOOD ORDERABLES Final Re sult [facility] [address] [place] [id number] * (ABNORMAL) CBC W/O Differential (05/26/2025 5:40 AM EST) WBC Count 8.39 3.70 - 10.30 10*3/uL LAB HEMATOLOGY METHOD 05/26/2025 6:01 AM EST [facility] RBC Count 3.05(L) 3.90 - 5.20 10*6/uL LAB HEMATOLOGY METHOD 05/26/2025 6:01 AM EST [facility] HGB 11.1(L) 11.2 - 15.7 g/dL LAB HEMATOLOGY METHOD 05/26/2025 6:01 AM EST [facility] HCT 31.6(L) 34.0 - 45.0 % LAB HEMATOLOGY METHOD 05/26/2025 6:01 AM EST [facility] Platelet Count 64(L) 155 - 369 10*3/uL LAB HEMATOLOGY METHOD 05/26/2025 6:01 AM EST [facility] MCV 104(H) 79 - 98 fL LAB HEMATOLOGY METHOD 05/26/2025 6:01 AM EST [facility] MCH 36.4(H) 26.0 - 32.0 pg LAB HEMATOLOGY METHOD 05/26/2025 6:01 AM EST [facility] MCHC 35.1 30.7 - 35.5 g/dL LAB HEMATOLOGY METHOD 05/26/2025 6:01 AM EST [facility] RDW 16.0(H) 11.5 - 14.5 % LAB HEMATOLOGY METHOD 05/26/2025 6:01 AM EST [facility] MPV 9.4 8.8 - 12.5 fL LAB HEMATOLOGY METHOD 05/26/2025 6:01 AM EST [facility] nRBC 0.0 <=0.0 per 100 WBCs LAB HEMATOLOGY METHOD 05/26/2025 6:01 AM EST [facility] Blood Venous blood specimen / Unknown Venipuncture / Unknown 05/26/2025 5:40 AM EST 05/26/2025 5:59 AM EST Alison Burns MD LAB BLOOD ORDERABLES Final Re sult [facility] [address] [place] [id number] * Copper, Serum or Plasma (05/26/2025 5:40 AM EST) Pathologist [facility] Copper, Serum or Plasma 98.5 80.0 - 155.0 ug/dL 05/28/2025 9:07 PM EST [facility] Blood Venous blood specimen / Unknown Venipuncture / Unknown 05/26/2025 5:40 AM EST 05/26/2025 5:59 AM EST Narrative [facility] ([place]) - 05/28/2025 9:07 PM EST INTERPRETIVE INFORMATION: Copper, Serum or Plasma Elevated results may be due to skin or collection-related contamination, including the use of a noncertified metal-free collection/transport tube. If contamination concerns exist due to elevated levels of serum/plasma copper, confirmation with a second specimen collected in a certified metal-free tube is recommended. Serum copper may be elevated with infection, inflammation, stress, and copper supplementation. In females, elevated copper may also be caused by oral contraceptives and (concentrations may be elevated up to 3 times normal during the third trimester). This test was developed and its performance characteristics determined by [facility]. It has not been cleared or approved by the [place] Food and Drug Administration. This test was performed in a CLIA certified laboratory and is intended for clinical purposes. Performed By: [facility] [address] [place] [address] Home Weatherizing Worker: Kiel Mayfield MD, PhD CLIA Number: [id number] Alison Burns MD LAB BLOOD ORDERABLES Final Re sult [facility] ([facility] [address] [place] [address] * (ABNORMAL) POCT glucose meter (05/25/2025 9:15 PM EST) POCT Glucose 152(H) 74 - 99 mg/dL 05/25/2025 9:18 PM EST [facility] Comment:Accuracy of a glucos e result obtained from a capillary whole blood specimen relies upon adequate, non-compromised capillary blood flow. If the capillary glucose result is not consistent with the patient's clinical signs and symptoms, glucose testing should be repeated with either an arterial or venous sample on the glucometer or sent to the main labortory for testing. Comment 05/25/2025 9:18 PM EST [facility] Bilingual Social Worker ID Cristel Gordon 05/25/20 9:18 PM EST [facility] Device ID [id number] 05/25/2025 9:18 PM EST [facility] Specimen Type POC Capillary 05/25/2025 9:18 PM EST [facility] Blood Capillary blood specimen / Unknown 05/25/2025 9:15 PM EST 05/25/2025 9:18 PM EST Alison Burns MD LAB POINT OF CARE TE ST DOCKED DEVICE UNSOLICITED RESULTS Final Result Performing Organization Address City/State/[facility] de Phone Number [facility] [address] [place] [address] * Comprehensive GI Panel by PCR (05/25/2025 4:57 PM EST) Pathologist [facility] Campylobacter PCR Result Not Detected Not Detected 05/26/2025 7:04 AM EST [facility] Plesiomonas shigelloides PCR Result Not Detected Not Detected 05/26/2025 7:04 AM EST [facility] Salmonella PCR Result Not Detected Not Detected 05/26/2025 7:04 AM EST [facility] Vibrio species PCR Result Not Detected Not Detected 05/26/2025 7:04 AM EST [facility] Vibrio cholerae PCR Result Not Detected Not Detected 05/26/2025 7:04 AM EST [facility] Yersinia enterocolitica PCR Result Not Detected Not Detected 05/26/2025 7:04 AM EST [facility] Enteroaggregative E. coli (EAEC) PCR Result Not Detected Not Detected 05/26/2025 7:04 AM [facility] Enteropathogenic E. coli (EPEC) PCR Result Not Detected Not Detected 05/26/2025 7:04 AM EST [facility] Enterotoxigenic E. coli (ETEC) lt/st PCR Result Not Detected Not Detected 05/26/2025 7:04 AM [facility] Shiga-like Toxin-Producing E.coli (STEC) stx1/stx2 PCR Resu Not Detected Not Detected 05/26/2025 7:04 AM [facility] E coli 0157 PCR Result Not Detected Not Detected 05/26/2025 7:04 AM [facility] Shigella/Enteroinvas jessica E. coli (EIEC) PCR Result Not Detected Not Detected 05/26/2025 7:04 AM [facility] Cryptosporidium PCR Result Not Detected Not Detected 05/26/2025 7:04 AM [facility] Cyclospora cayetanensis PCR Result Not Detected Not Detected 05/26/2025 7:04 AM [facility] Entamoeba histolytica PCR Result Not Detected Not Detected 05/26/2025 7:04 AM [facility] Giardia duodenalis (aka Giardia lamblia) PCR Result Not Detected Not Detected 05/26/2025 7:04 AM [facility] Adenovirus F 40/41 PCR Result Not Detected Not Detected 05/26/2025 7:04 AM [facility] Astrovirus PCR Result Not Detected Not Detected 05/26/2025 7:04 AM [facility] Norovirus GI/GII PCR Result Not Detected Not Detected 05/26/2025 7:04 AM [facility] Rotavirus A PCR Result Not Detected Not Detected 05/26/2025 7:04 AM [facility] Sapovirus PCR Result Not Detected Not Detected 05/26/2025 7:04 AM [facility] Stool Rectum structure / Unknown Non-blood Collection / Unknown 05/25/2025 4:57 PM EST 05/25/2025 6:02 PM EST [facility] - 05/26/2025 7:04 AM EST This specimen was tested for the following analytes: Campylobacter species, Plesiomonas shigelloides, Salmonella species, Vibrio species, Vibrio cholerae, Yersinia enterolitica, Enteroaggregative E. coli (EAEC), Enteropathogenic E. Coli (EPEC), Enterotoxigenic E. coli (ETEC), Shiga-like toxin-producing E. coli (STEC), Shigella/Enteroinvasive E. coli (EIEC), Cryptosporidium, Cyclospora cayetanensis, Entamoeba histolytica, Giardia lamblia, Adenovirus f40/41, Astrovirus, Norovirus GI/GII, Rotavirus A, and Sapovirus. Note: Clostridium difficile toxin a/b will no longer be resulted using this platform. Please order the Clostridium difficile by PCR assay if clinically indicated. Alison Burns MD LAB MICROBIOLOGY - GENERAL OR DERABLES Final Result Performing Organization Address City/[facility]/ZIP Co de Phone Number [facility] [address] [place] [address] * Microbiology Frequency Override (05/25/2025 4:57 PM EST) [facility] Microbiology Frequency Override Test Comment comprehensive GI panel 05/30/2025 1:40 PM EST [facility] Stool Anal structure / Unknown Non-blood Collection / Unknown 05/25/2025 4:57 PM EST 05/25/2025 5:03 PM EST Alison Burns MD LAB MICROBIOLOGY - GENERAL OR DERABLES Final Result Performing Organization Address [facility]/ZIP Co de Phone Number [facility] [address] [place] [address] * (ABNORMAL) POCT glucose meter (05/25/2025 4:26 PM EST) [facility] POCT Glucose 105(H) 74 - 99 mg/dL 05/25/2025 4:28 PM EST [facility] Comment:Accuracy of a glucos e result obtained from a capillary whole blood specimen relies upon adequate, non-compromised capillary blood flow. If the capillary glucose result is not consistent with the patient's clinical signs and symptoms, glucose testing should be repeated with either an arterial or venous sample on the glucometer or sent to the main labortory for testing. Comment 05/25/2025 4:28 PM EST [facility] Bilingual Social Worker ID Jacqueline Rawls 05/25/2025 4:28 PM EST [facility] Device ID [id number] 05/25/2025 4:28 PM EST [facility] Specimen Type POC Capillary 05/25/2025 4:28 PM EST [facility] Blood Capillary blood specimen / Unknown 05/25/2025 4:26 PM EST 05/25/2025 4:28 PM EST Alison Burns MD LAB POINT OF CARE TE ST DOCKED DEVICE UNSOLICITED RESULTS Final Result Performing Organization Address City/[facility]/ZIP Co de Phone Number [facility] [address] [place] [address] * Lactate, venous (05/25/2025 3:41 PM EST) Lactate, Venous, Whole Blood 1.7 0.5 - 2.2 mmol/L LAB HEMATOLOGY METHOD 05/25/2025 3:58 PM EST [facility] Blood Venous blood specimen / Unknown Venipuncture / Unknown 05/25/2025 3:41 PM EST 05/25/2025 3:55 PM EST Alison Burns MD LAB BLOOD ORDERABLES Final Re sult [facility] [address] [place] [address] * (ABNORMAL) CBC W/O Differential (05/25/2025 3:41 PM EST) WBC Count 10.72(H) 3.70 - 10.30 10*3/uL LAB HEMATOLOGY METHOD 05/25/2025 3:58 PM EST [facility] RBC Count 3.19(L) 3.90 - 5.20 10*6/uL LAB HEMATOLOGY METHOD 05/25/2025 3:58 PM EST [facility] HGB 11.5 11.2 - 15.7 g/dL LAB HEMATOLOGY METHOD 05/25/2025 3:58 PM EST [facility] HCT 33.3(L) 34.0 - 45.0 % LAB HEMATOLOGY METHOD 05/25/2025 3:58 PM EST [facility] Platelet Count 78(L) 155 - 369 10*3/uL LAB HEMATOLOGY METHOD 05/25/2025 3:58 PM EST [facility] MCV 104(H) 79 - 98 fL LAB HEMATOLOGY METHOD 05/25/2025 3:58 PM EST [facility] MCH 36.1(H) 26.0 - 32.0 pg LAB HEMATOLOGY METHOD 05/25/2025 3:58 PM EST [facility] MCHC 34.5 30.7 - 35.5 g/dL LAB HEMATOLOGY METHOD 05/25/2025 3:58 PM EST [facility] RDW 16.0(H) 11.5 - 14.5 % LAB HEMATOLOGY METHOD 05/25/2025 3:58 PM EST [facility] MPV 9.5 8.8 - 12.5 fL LAB HEMATOLOGY METHOD 05/25/2025 3:58 PM EST [facility] nRBC 0.0 <=0.0 per 100 WBCs LAB HEMATOLOGY METHOD 05/25/2025 3:58 PM EST [facility] Blood Venous blood specimen / Unknown Venipuncture / Unknown 05/25/2025 3:41 PM EST 05/25/2025 3:56 PM EST Alison Burns MD LAB BLOOD ORDERABLES Final Re sult [facility] [address] [place] [address] * (ABNORMAL) POCT glucose meter (05/25/2025 11:56 AM EST) POCT Glucose 122(H) 74 - 99 mg/dL 05/25/2025 11:58 AM EST [facility] Comment:Accuracy of a glucos e result obtained from a capillary whole blood specimen relies upon adequate, non-compromised capillary blood flow. If the capillary glucose result is not consistent with the patient's clinical signs and symptoms, glucose testing should be repeated with either an arterial or venous sample on the glucometer or sent to the main labortory for testing. Comment 05/25/2025 11:58 AM EST [facility] Bilingual Social Worker ID Jacqueline Rawls Amos 05/25/2025 11:58 AM EST [facility] Device ID [id number] 05/25/2025 11:58 AM EST [facility] Specimen Type POC Capillary 05/25/2025 11:58 AM EST [facility] Blood Capillary blood specimen / Unknown 05/25/2025 11:56 AM EST 05/25/2025 11:58 AM EST Alison Burns MD LAB POINT OF CARE TE ST DOCKED DEVICE UNSOLICITED RESULTS Final Result Performing Organization Address City/State/[facility] Co de Phone Number [facility] [address] [place] [phone] * US Abdomen Doppler Limited (05/25/2025 10:56 AM EST) Anatomical Region Laterality Modality Abdomen Ultrasound Impressions 05/25/2025 12:08 PM EST 1. Mild ascites. 2. Portal vein is grossly patent with antegrade flow. CRITICAL RESULT: No. COMMUNICATION: Per this written report. By electronically signing this report, I, the attending physician, attest that I have personally reviewed the images/data for the above examination(s) and agree with the final edited report. Drafted by Betzaida Nair DO on 05/25/2025 11:54 AM Final report signed by Huong Archer MD on 05/25/2025 12:08 PM Narrative 05/25/2025 12:08 PM EST CLINICAL INDICATION: ascites eval TECHNIQUE: Limited multiplanar static and cine contreras scale ultrasound images of the abdomen were obtained, accompanied by selective color Doppler ultrasound images. Additional limited color and spectral Doppler images of the hepatic vasculature were also obtained. COMPARISON: None. FINDINGS: Grayscale: Free Fluid: There is mild ascites in all four quadrants. Duplex: Portal Vein: There is antegrade flow within the main portal vein with a velocity of 19.1 cm/sec. Hepatic Veins: The hepatic veins are patent at the IVC confluence with normal direction of flow. Procedure Note Huong Archer MD - 05/25/2025 CLINICAL INDICATION: ascites eval TECHNIQUE: Limited multiplanar static and cine contreras scale ultrasound images of theabdomen were obtained, accompanied by selective color Doppler ultrasoundimages. Additional limited color and spectral Doppler images of thehepatic vasculature were also obtained. COMPARISON: None. FINDINGS: Grayscale: Free Fluid: There is mild ascites in all four quadrants. Duplex: Portal Vein: There is antegrade flow within the main portal vein with avelocity of 19.1 cm/sec. Hepatic Veins: The hepatic veins are patent at the IVC confluence withnormal direction of flow. IMPRESSION: 1.Mild ascites. 2.Portal vein is grossly patent with antegrade flow. CRITICAL RESULT: No. COMMUNICATION: Per this written report. By electronically signing this report, I, the attending physician, attestthat I have personally reviewed the images/data for the aboveexamination(s) and agree with the final edited report. Drafted by Betzaida Nair DO on 05/25/2025 11:54 AM Final report signed by Huong Archer MD on 05/25/2025 12:08 PM us Alison Burns MD IMG US PROCEDURES Final Resul t * US Abdomen Focused Region Other (05/25/2025 10:56 AM EST) Anatomical Region Laterality Modality Abdomen Ultrasound Impressions 05/25/2025 12:08 PM EST 1. Mild ascites. 2. Portal vein is grossly patent with antegrade flow. CRITICAL RESULT: No. COMMUNICATION: Per this written report. By electronically signing this report, I, the attending physician, attest that I have personally reviewed the images/data for the above examination(s) and agree with the final edited report. Drafted by Betzaida Nair DO on 05/25/2025 11:54 AM Final report signed by Huong Archer MD on 05/25/2025 12:08 PM Narrative 05/25/2025 12:08 PM EST CLINICAL INDICATION: ascites eval TECHNIQUE: Limited multiplanar static and cine contreras scale ultrasound images of the abdomen were obtained, accompanied by selective color Doppler ultrasound images. Additional limited color and spectral Doppler images of the hepatic vasculature were also obtained. COMPARISON: None. FINDINGS: Grayscale: Free Fluid: There is mild ascites in all four quadrants. Duplex: Portal Vein: There is antegrade flow within the main portal vein with a velocity of 19.1 cm/sec. Hepatic Veins: The hepatic veins are patent at the IVC confluence with normal direction of flow. Procedure Note Huong Archer MD - 05/25/2025 CLINICAL INDICATION: ascites eval TECHNIQUE: Limited multiplanar static and cine contreras scale ultrasound images of theabdomen were obtained, accompanied by selective color Doppler ultrasoundimages. Additional limited color and spectral Doppler images of thehepatic vasculature were also obtained. COMPARISON: None. FINDINGS: Grayscale: Free Fluid: There is mild ascites in all four quadrants. Duplex: Portal Vein: There is antegrade flow within the main portal vein with avelocity of 19.1 cm/sec. Hepatic Veins: The hepatic veins are patent at the IVC confluence withnormal direction of flow. IMPRESSION: 1.Mild ascites. 2.Portal vein is grossly patent with antegrade flow. CRITICAL RESULT: No. COMMUNICATION: Per this written report. By electronically signing this report, I, the attending physician, attjuarezthat I have personally reviewed the images/data for the aboveexamination(s) and agree with the final edited report. Drafted by Betzaida Nair DO on 05/25/2025 11:54 AM Final report signed by Huong Archer MD on 05/25/2025 12:08 PM us Alison Burns MD IMG US PROCEDURES Final Resul t * XR Chest 1 View (05/25/2025 9:42 AM EST) Anatomical Region Laterality Modality Chest Digital Radiogra phy Impressions 05/25/2025 9:52 AM EST No acute findings. CRITICAL RESULT: No. COMMUNICATION: Per this written report. Drafted by Shady Lebron MD on 05/25/2025 9:51 AM Final report signed by Shady Lebron MD on 05/25/2025 9:52 AM Narrative 05/25/2025 9:52 AM EST CLINICAL INDICATION: shortness of breath TECHNIQUE: XR CHEST 1 VIEW COMPARISON: May 18, 2025 FINDINGS: Linear atelectasis at the lung bases. No edema or consolidation. No pneumothorax or significant effusion. Heart and mediastinal contours are within normal limits. Procedure Note Shady Lebron MD - 05/25/2025 CLINICAL INDICATION: shortness of breath TECHNIQUE: XR CHEST 1 VIEW COMPARISON: May 18, 2025 FINDINGS: Linear atelectasis at the lung bases. No edema or consolidation. Nopneumothorax or significant effusion. Heart and mediastinal contours arewithin normal limits. IMPRESSION: No acute findings. CRITICAL RESULT: No. COMMUNICATION: Per this written report. Drafted by Shayd Lebron MD on 05/25/2025 9:51 AM Final report signed by Shady Lebron MD on 05/25/2025 9:52 AM Alison Burns MD IMG XR PROCEDURES Final Resul t * (ABNORMAL) POCT glucose meter (05/25/2025 7:29 AM EST) POCT Glucose 110(H) 74 - 99 mg/dL 05/25/2025 7:30 AM EST [facility] Comment:Accuracy of a glucos e result obtained from a capillary whole blood specimen relies upon adequate, non-compromised capillary blood flow. If the capillary glucose result is not consistent with the patient's clinical signs and symptoms, glucose testing should be repeated with either an arterial or venous sample on the glucometer or sent to the main labortory for testing. Comment 05/25/2025 7:30 AM EST [facility] Bilingual Social Worker ID Jacqueline Rawls 05/25/2025 7:30 AM EST [facility] Device ID [id number] 05/25/2025 7:30 AM EST [facility] Specimen Type POC Capillary 05/25/2025 7:30 AM EST [facility] Blood Capillary blood specimen / Unknown 05/25/2025 7:29 AM EST 05/25/2025 7:30 AM EST Alison Burns MD LAB POINT OF CARE TE ST DOCKED DEVICE UNSOLICITED RESULTS Final Result [facility] [address] [place] [id number] * (ABNORMAL) Hepatic Function Panel (05/25/2025 2:38 AM EST) Direct Bilirubin, Plasma 2.0(H) <=0.3 mg/dL 05/25/2025 3:36 AM EST [facility] Alkaline Phosphatase, Plasma 132(H) 35 - 104 U/L 05/25/2025 3:36 AM EST [facility] Total Bilirubin, Plasma 3.7(H) 0.2 - 1.1 mg/dL 05/25/2025 3:36 AM EST [facility] Albumin, Plasma 2.4(L) 3.5 - 5.2 g/dL 05/25/2025 3:36 AM EST [facility] Total Protein 5.2(L) 6.3 - 7.9 g/dL 05/25/2025 3:36 AM EST [facility] ALT, Plasma 47(H) 10 - 35 U/L 05/25/2025 3:36 AM EST [facility] AST, Plasma 61(H) 10 - 35 U/L 05/25/2025 3:36 AM EST [facility] Blood Venous blood specimen / Unknown Venipuncture / Unknown 05/25/2025 2:38 AM EST 05/25/2025 3:09 AM EST Alison Burns MD LAB BLOOD ORDERABLES Final Re sult Performing Organization Address City/State/[facility] Co de Phone Number [facility] [address] [place] [address] * (ABNORMAL) PT/INR (05/25/2025 2:38 AM EST) Prothrombin Time 21.1(H) 12.0 - 14.3 sec 05/25/2025 3:21 AM EST [facility] INR 1.8(H) 0.9 - 1.1 05/25/2025 3:21 AM EST [facility] Blood Venous blood specimen / Unknown Venipuncture / Unknown 05/25/2025 2:38 AM EST 05/25/2025 3:09 AM EST Narrative [facility] - 05/25/2025 3:21 AM EST OPTIMAL INR RANGES FOR PATIENT ON ORAL ANTICOAGULANT THERAPY Prevention of venous thromboembolism INR 2.0 to 3.0 In patients with heart disease: Atrial fibrillation INR 2.0 to 3.0 Valvular heart disease INR 2.0 to 3.0 Tissue heart valves INR 2.0 to 3.0 Mechanical prosthetic valves INR 2.5 to 3.5 Prevention of recurrent AR INR 2.5 to 3.5 us Mannie Neel Alves APRN, [facility] BLOOD ORDERAB LES Final Result Performing Organization Address [facility] de Phone Number [facility] [address] [place] [address] * Magnesium, Plasma (05/25/2025 2:38 AM EST) Magnesium, Plasma 2.1 1.9 - 2.4 mg/dL 05/25/2025 3:36 AM EST [facility] Blood Venous blood specimen / Unknown Venipuncture / Unknown 05/25/2025 2:38 AM EST 05/25/2025 3:09 AM EST Mannie Neel Alves APRN, [facility] BLOOD ORDERAB LES Final Result Performing Organization Address [facility] Phone Number [facility] [address] [place] [address] * (ABNORMAL) Phosphorus (05/25/2025 2:38 AM EST) Pathologist [facility] Phosphorus, Plasma 2.2(L) 2.5 - 4.5 mg/dL 05/25/2025 3:36 AM EST [facility] Blood Venous blood specimen / Unknown Venipuncture / Unknown 05/25/2025 2:38 AM EST 05/25/2025 3:09 AM EST Mannie Neel Alves APRN, [facility] LAB BLOOD ORDERAB LES Final Result Performing Organization Address City/[facility] de Phone Number [facility] [address] [place] [address] * (ABNORMAL) Basic metabolic panel (05/25/2025 2:38 AM EST) Glucose, Plasma 107(H) 74 - 99 mg/dL 05/25/2025 3:36 AM EST [facility] BUN, Plasma 23(H) 7 - 21 mg/dL 05/25/2025 3:36 AM EST [facility] Creatinine, Plasma 0.92 0.60 - 1.10 mg/dL 05/25/2025 3:36 AM EST [facility] BUN/Creatinine Ratio 25 05/25/2025 3:36 AM EST [facility] Sodium, Plasma 128(L) 136 - 145 mmol/L 05/25/2025 3:36 AM EST [facility] Potassium, Plasma 4.4 3.6 - 4.9 mmol/L 05/25/2025 3:36 AM EST [facility] Chloride, Plasma 100 97 - 107 mmol/L 05/25/2025 3:36 AM EST [facility] CO2, Plasma 24 22 - 29 mmol/L 05/25/2025 3:36 AM EST [facility] Anion Gap 4(L) 6 - 16 mmol/L 05/25/2025 3:36 AM EST [facility] Total Calcium, Plasma 8.2(L) 8.9 - 10.2 mg/dL 05/25/2025 3:36 AM EST [facility] eGFRcr 73.7 mL/min/1.7 3m*2 05/25/2025 3:36 AM EST [facility] Comment:Reported eGFRcr in m L/min/1.73m2 is based the CKD-EPI 2020 equation that does not use a race coefficient. Blood Venous blood specimen / Unknown Venipuncture / Unknown 05/25/2025 2:38 AM EST 05/25/2025 3:09 AM EST Mannie Alves APRN, DNP LAB BLOOD ORDERAB LES Final Result Performing Organization Address City/State/[facility] Co de Phone Number [facility] [address] [place] [phone] * (ABNORMAL) CBC (05/25/2025 2:38 AM EST) WBC Count 10.02 3.70 - 10.30 10*3/uL LAB HEMATOLOGY METHOD 05/25/2025 3:12 AM EST [facility] RBC Count 2.68(L) 3.90 - 5.20 10*6/uL LAB HEMATOLOGY METHOD 05/25/2025 3:12 AM EST [facility] HGB 9.4(L) 11.2 - 15.7 g/dL LAB HEMATOLOGY METHOD 05/25/2025 3:12 AM EST [facility] HCT 27.8(L) 34.0 - 45.0 % LAB HEMATOLOGY METHOD 05/25/2025 3:12 AM EST [facility] Platelet Count 53(L) 155 - 369 10*3/uL LAB HEMATOLOGY METHOD 05/25/2025 3:12 AM EST [facility] MCV 104(H) 79 - 98 fL LAB HEMATOLOGY METHOD 05/25/2025 3:12 AM EST [facility] MCH 35.1(H) 26.0 - 32.0 pg LAB HEMATOLOGY METHOD 05/25/2025 3:12 AM EST [facility] MCHC 33.8 30.7 - 35.5 g/dL LAB HEMATOLOGY METHOD 05/25/2025 3:12 AM EST [facility] RDW 16.0(H) 11.5 - 14.5 % LAB HEMATOLOGY METHOD 05/25/2025 3:12 AM EST [facility] MPV 10.2 8.8 - 12.5 fL LAB HEMATOLOGY METHOD 05/25/2025 3:12 AM EST [facility] nRBC 0.0 <=0.0 per 100 WBCs LAB HEMATOLOGY METHOD 05/25/2025 3:12 AM EST [facility] Blood Venous blood specimen / Unknown Venipuncture / Unknown 05/25/2025 2:38 AM EST 05/25/2025 3:09 AM EST Mannie Alves APRN, [facility] LAB BLOOD ORDERAB LES Final Result [facility] [address] [place] [address] * (ABNORMAL) POCT glucose meter (05/24/2025 7:35 PM EST) Pathologist [facility] POCT Glucose 131(H) 74 - 99 mg/dL 05/24/2025 7:38 PM EST [facility] Comment:Accuracy of a glucos e result obtained from a capillary whole blood specimen relies upon adequate, non-compromised capillary blood flow. If the capillary glucose result is not consistent with the patient's clinical signs and symptoms, glucose testing should be repeated with either an arterial or venous sample on the glucometer or sent to the main labortory for testing. Comment 05/24/2025 7:38 PM EST [facility] Bilingual Social Worker ID Robert Fortune 05/24/2025 7:38 PM EST [facility] Device ID [id number] 05/24/2025 7:38 PM EST [facility] Specimen Type POC Capillary 05/24/2025 7:38 PM EST [facility] Blood Capillary blood specimen / Unknown 05/24/2025 7:35 PM EST 05/24/2025 7:38 PM EST Alison Burns MD LAB POINT OF CARE TE ST DOCKED DEVICE UNSOLICITED RESULTS Final Result Performing Organization Address City/[facility] Co de Phone Number [facility] [address] [place] [address] * POCT glucose meter (05/24/2025 6:26 PM EST) [facility] POCT Glucose 93 74 - 99 mg/dL 05/24/2025 6:28 PM EST [facility] Comment:Accuracy of a glucos e result obtained from a capillary whole blood specimen relies upon adequate, non-compromised capillary blood flow. If the capillary glucose result is not consistent with the patient's clinical signs and symptoms, glucose testing should be repeated with either an arterial or venous sample on the glucometer or sent to the main labortory for testing. Comment 05/24/2025 6:28 PM EST [facility] Bilingual Social Worker ID Aster Serrano 05/24/2025 6:28 PM EST [facility] Device ID [id number] 05/24/2025 6:28 PM EST [facility] Specimen Type POC Capillary 05/24/2025 6:28 PM EST [facility] Blood Capillary blood specimen / Unknown 05/24/2025 6:26 PM EST 05/24/2025 6:28 PM EST us Alison Burns MD LAB POINT OF CARE TE ST DOCKED DEVICE UNSOLICITED RESULTS Final Result Performing Organization Address City/[facility] Co de Phone Number [facility] [address] [place] [address] * (ABNORMAL) Lactate, venous (05/24/2025 5:22 PM EST) Lactate, Venous, Whole Blood 2.7(H) 0.5 - 2.2 mmol/L LAB HEMATOLOGY METHOD 05/24/2025 5:30 PM EST [facility] Blood Venous blood specimen / Unknown Venipuncture / Unknown 05/24/2025 5:22 PM EST 05/24/2025 5:26 PM EST Alison Burns MD LAB BLOOD ORDERABLES Final Re sult [facility] [address] [place] [id number] * (ABNORMAL) Comprehensive metabolic panel (05/24/2025 5:22 PM EST) Glucose, Plasma 104(H) 74 - 99 mg/dL 05/24/2025 6:17 PM EST [facility] BUN, Plasma 23(H) 7 - 21 mg/dL 05/24/2025 6:17 PM EST [facility] Creatinine, Plasma 0.91 0.60 - 1.10 mg/dL 05/24/2025 6:17 PM EST [facility] BUN/Creatinine Ratio 25 05/24/2025 6:17 PM EST [facility] Sodium, Plasma 131(L) 136 - 145 mmol/L 05/24/2025 6:17 PM EST [facility] Potassium, Plasma 4.6 3.6 - 4.9 mmol/L 05/24/2025 6:17 PM EST [facility] Chloride, Plasma 101 97 - 107 mmol/L 05/24/2025 6:17 PM EST [facility] CO2, Plasma 23 22 - 29 mmol/L 05/24/2025 6:17 PM EST [facility] Anion Gap 7 6 - 16 mmol/L 05/24/2025 6:17 PM EST [facility] Total Calcium, Plasma 8.7(L) 8.9 - 10.2 mg/dL 05/24/2025 6:17 PM EST [facility] Total Protein 5.8(L) 6.3 - 7.9 g/dL 05/24/2025 6:17 PM EST [facility] Albumin, Plasma 2.8(L) 3.5 - 5.2 g/dL 05/24/2025 6:17 PM EST [facility] AST, Plasma 73(H) 10 - 35 U/L 05/24/2025 6:17 PM EST [facility] ALT, Plasma 57(H) 10 - 35 U/L 05/24/2025 6:17 PM EST [facility] Alkaline Phosphatase, Plasma 144(H) 35 - 104 U/L 05/24/2025 6:17 PM EST [facility] Total Bilirubin, Plasma 4.9(H) 0.2 - 1.1 mg/dL 05/24/2025 6:17 PM EST [facility] eGFRcr 74.7 mL/min/1.7 3m*2 05/24/2025 6:17 PM EST [facility] Comment:Reported eGFRcr in m L/min/1.73m2 is based the CKD-EPI 2020 equation that does not use a race coefficient. Blood Venous blood specimen / Unknown Venipuncture / Unknown 05/24/2025 5:22 PM EST 05/24/2025 5:25 PM EST Alison Burns MD LAB BLOOD ORDERABLES Final Re sult Performing Organization Address City/[facility]/ZIP Co de Phone Number [facility] [address] [place] [address] * (ABNORMAL) Lactate, venous (05/24/2025 1:01 PM EST) Pathologist [facility] Lactate, Venous, Whole Blood 4.0(H) 0.5 - 2.2 mmol/L LAB HEMATOLOGY METHOD 05/24/2025 1:07 PM EST [facility] Blood Venous blood specimen / Unknown Venipuncture / Unknown 05/24/2025 1:01 PM EST 05/24/2025 1:05 PM EST Alison Burns MD LAB BLOOD ORDERABLES Final Re sult [facility] [address] [place] [address] * Comprehensive GI Panel by PCR (05/24/2025 12:52 PM EST) Pathologist [facility] Gastrointestinal PCR Panel Result Test not indicated due to the receipt of formed or semi-formed stool specimen. Not Detected for all analytes. 05/25/2025 8:00 AM EST [facility] Stool Rectum structure / Unknown Non-blood Collection / Unknown 05/24/2025 12:52 PM EST 05/24/2025 12:55 PM EST Narrative [facility] - 05/25/2025 8:00 AM EST This specimen was tested for the following analytes: Campylobacter species, Plesiomonas shigelloides, Salmonella species, Vibrio species, Vibrio cholerae, Yersinia enterolitica, Enteroaggregative E. coli (EAEC), Enteropathogenic E. Coli (EPEC), Enterotoxigenic E. coli (ETEC), Shiga-like toxin-producing E. coli (STEC), Shigella/Enteroinvasive E. coli (EIEC), Cryptosporidium, Cyclospora cayetanensis, Entamoeba histolytica, Giardia lamblia, Adenovirus f40/41, Astrovirus, Norovirus GI/GII, Rotavirus A, and Sapovirus. Note: Clostridium difficile toxin a/b will no longer be resulted using this platform. Please order the Clostridium difficile by PCR assay if clinically indicated. Abdoul Rouse MD LAB MICROBIOLOGY - GENERAL ORD ERABLES Final Result Performing Organization Address [facility] Co de Phone Number [facility] [address] [place] [address] * Clostridiodes (Clostridium) difficile PCR (05/24/2025 12:52 PM EST) C difficile PCR toxin B gene DNA Result Test not indicated due to the receipt of formed or semi-formed stool specimen. Not Detected 05/25/2025 7:04 AM EST [facility] Stool Rectum structure / Unknown Non-blood Collection / Unknown 05/24/2025 12:52 PM EST 05/24/2025 12:55 PM EST Narrative [facility] - 05/25/2025 7:04 AM EST This test is FDA approved for use with liquid stool specimens. This test is used for clinical purposes. It should not be regarded as investigational or for research. This laboratory is certified under the Clinical Laboratory Improvement Amendments of 1988 (CLIA-88) as qualified to perform high complexity clinical laboratory testing. Abdoul Rouse MD LAB MICROBIOLOGY - GENERAL ORD ERABLES Final Result Performing Organization Address City/[facility] Co de Phone Number [facility] [address] [place] [address] * (ABNORMAL) POCT glucose meter (05/24/2025 10:32 AM EST) POCT Glucose 120(H) 74 - 99 mg/dL 05/24/2025 10:34 AM EST [facility] Comment:Accuracy of a glucos e result obtained from a capillary whole blood specimen relies upon adequate, non-compromised capillary blood flow. If the capillary glucose result is not consistent with the patient's clinical signs and symptoms, glucose testing should be repeated with either an arterial or venous sample on the glucometer or sent to the main labortory for testing. Comment 05/24/2025 10:34 AM EST [facility] Bilingual Social Worker ID Aster Serrano 05/24/2025 10:34 AM EST [facility] Device ID [id number] 05/24/2025 10:34 AM EST [facility] Specimen Type POC Capillary 05/24/2025 10:34 AM EST [facility] Blood Capillary blood specimen / Unknown 05/24/2025 10:32 AM EST 05/24/2025 10:34 AM EST Alison Burns MD LAB POINT OF CARE TE ST DOCKED DEVICE UNSOLICITED RESULTS Final Result [facility] [address] [place] [address] * (ABNORMAL) Opiates Confirm Urine (05/24/2025 8:00 AM EST) Pathologist [facility] Codeine <50 <50 ng/mL 05/27/2025 7:38 PM EST [facility] Codeine Glucuronide <50 <50 ng/mL 05/27/2025 7:38 PM EST [facility] Desmethyl Tramadol <50 <50 ng/mL 05/27/2025 7:38 PM EST [facility] EDDP - Methadone Metabolite <50 <50 ng/mL 05/27/2025 7:38 PM EST [facility] Hydrocodone <50 <50 ng/mL 05/27/2025 7:38 PM EST [facility] Hydromorphone <50 <50 ng/mL 05/27/2025 7:38 PM EST [facility] Hydromorphone Glucuronide <50 <50 ng/mL 05/27/2025 7:38 PM EST [facility] Comment:Metabolite of Hydrom orphone Meperidine <50 <50 ng/mL 05/27/2025 7:38 PM EST [facility] Methadone <50 <50 ng/mL 05/27/2025 7:38 PM EST [facility] 6 Monoacetyl morphine <10 <10 ng/mL 05/27/2025 7:38 PM EST [facility] Morphine 411(H) <50 ng/mL 05/27/2025 7:38 PM EST [facility] Morphine Glucuronide >1,000(H) <50 ng/mL 05/27/2025 7:38 PM EST [facility] Comment:Metabolite of Morphi ne Naloxone <50 <50 ng/mL 05/27/2025 7:38 PM EST [facility] Naloxone Glucuronide <50 <50 ng/mL 05/27/2025 7:38 PM EST [facility] Comment:Metabolite of Naloxo ne Normeperidine <50 <50 ng/mL 05/27/2025 7:38 PM EST [facility] Tramadol <50 <50 ng/mL 05/27/2025 7:38 PM EST [facility] Urine Urine specimen obtained by clean catch procedure / Unknown Non-blood Collection / Unknown 05/24/2025 8:00 AM EST 05/24/2025 8:03 AM EST Narrative [facility] - 05/27/2025 7:38 PM EST Drug analysis is confirmed by LC-MS/MS (LC Tandem Mass Spectrometry) on Urine specimens. This test was developed and its performance characteristics determined by [facility]. It has not been cleared or approved by the FDA. The laboratory is regulated under CLIA as qualified to perform high-complexity testing. This test is used for clinical purposes. Testing is performed at the [facility]. us Abdoul Rouse MD LAB URINE ORDERABLES Final Res ult [facility] [address] [place] [address] * Osmolality, urine (05/24/2025 8:00 AM EST) Osmolality, Urine 700 50 - 1,200 mOsm/kg 05/24/2025 12:19 PM EST [facility] Urine Urine specimen obtained by clean catch procedure / Unknown Non-blood Collection / Unknown 05/24/2025 8:00 AM EST 05/24/2025 8:03 AM EST us Mannie Alves APRN, DNP LAB URINE ORDERAB LES Final Result [facility] [address] [place] [id number] * Urine Contreras Panel (05/24/2025 8:00 AM EST) Extra Reflex urine culture not indicated 05/24/2025 5:02 PM EST [facility] Comment: Previously prelim verified as Specimen evaluation in progress on 05/24/2025 at 1001 EST. Previously prelim verified as Specimen evaluation in progress on 05/24/2025 at 1102 EST. Previously prelim verified as Specimen evaluation in progress on 05/24/2025 at 1202 EST. Previously prelim verified as Specimen evaluation in progress on 05/24/2025 at 1302 EST. Previously prelim verified as Specimen evaluation in progress on 05/24/2025 at 1401 EST. Previously prelim verified as Specimen evaluation in progress on 05/24/2025 at 1501 EST. Previously prelim verified as Specimen evaluation in progress on 05/24/2025 at 1601 EST. Urine Urine specimen obtained by clean catch procedure / Unknown Non-blood Collection / Unknown 05/24/2025 8:00 AM EST 05/24/2025 8:03 AM EST us Abdoul Rouse MD LAB URINE ORDERABLES Final Res ult [facility] [address] [place] [id number] * (ABNORMAL) Urinalysis with reflex microscopic (Culture NOT Included) (05/24/2025 8:00 AM EST) Color, Urine Yellow LAB URINALYSIS - AUTOMATED METHOD 05/24/2025 8:06 AM [facility] Clarity, Urine Clear LAB URINALYSIS - AUTOMATED METHOD 05/24/2025 8:06 AM [facility] Spec [place], Urine >1.030(H) 1.005 - 1.030 LAB URINALYSIS - AUTOMATED METHOD 05/24/2025 8:06 AM [facility] pH, Urine 5.5 5.0 - 8.0 LAB URINALYSIS - AUTOMATED METHOD 05/24/2025 8:06 AM [facility] Protein, Urine Negative Negative mg/dL LAB URINALYSIS - AUTOMATED METHOD 05/24/2025 8:06 AM [facility] Glucose, Urine >=1000(A) Negative mg/dL LAB URINALYSIS - AUTOMATED METHOD 05/24/2025 8:06 AM [facility] Ketones, Urine Negative Negative mg/dL LAB URINALYSIS - AUTOMATED METHOD 05/24/2025 8:06 AM [facility] Blood, Urine Negative Negative LAB URINALYSIS - AUTOMATED METHOD 05/24/2025 8:06 AM [facility] Bilirubin, Urine Negative Negative LAB URINALYSIS - AUTOMATED METHOD 05/24/2025 8:06 AM [facility] Urobilinogen, Urine 0.2 0.2 to 1.0 mg/dL LAB URINALYSIS - AUTOMATED METHOD 05/24/2025 8:06 AM [facility] Leukocytes, Urine Negative Negative LAB URINALYSIS - AUTOMATED METHOD 05/24/2025 8:06 AM [facility] Nitrite, Urine Negative Negative LAB URINALYSIS - AUTOMATED METHOD 05/24/2025 8:06 AM [facility] Urine Urine specimen obtained by clean catch procedure / Unknown Non-blood Collection / Unknown 05/24/2025 8:00 AM EST 05/24/2025 8:03 AM EST us Abdoul Rouse MD LAB URINE ORDERABLES Final Res ult [facility] [address] [place] [address] * Drug abuse screen (05/24/2025 8:00 AM EST) Pathologist [facility] Amphetamine Screen Urine Negative Cutoff: 500 ng/mL 05/24/2025 8:39 AM EST [facility] Benzodiazepines Screen Urine Negative Cutoff: 200 ng/mL 05/24/2025 8:39 AM EST [facility] Cannabinoid Screen Urine Negative Cutoff: 50 ng/mL 05/24/2025 8:39 AM EST [facility] Cocaine Screen Urine Negative Cutoff: 300 ng/mL 05/24/2025 8:39 AM EST [facility] Barbiturate Screen Urine Negative Cutoff: 200 ng/mL 05/24/2025 8:39 AM EST [facility] Opiate Screen Urine Presumptive positive. Confirmation by LC-MS/MS to follow. Cutoff: 300 ng/mL 05/24/2025 8:39 AM EST [facility] Methadone Screen Urine Negative Cutoff: 300 ng/mL 05/24/2025 8:39 AM EST [facility] Buprenorphine Screen Urine Negative Cutoff: 10 ng/mL 05/24/2025 8:39 AM [facility] Fentanyl Screen Urine Negative Cutoff: 1 ng/mL 05/24/2025 8:39 AM EST [facility] Oxycodone Screen Urine Negative Cutoff: 100 ng/mL 05/24/2025 8:39 AM [facility] Urine Urine specimen obtained by clean catch procedure / Unknown Non-blood Collection / Unknown 05/24/2025 8:00 AM EST 05/24/2025 8:03 AM EST us Abdoul Rouse MD LAB URINE ORDERABLES Final Res ult [facility] [address] [place] [address] * (ABNORMAL) POCT glucose meter (05/24/2025 7:45 AM EST) [facility] POCT Glucose 139(H) 74 - 99 mg/dL 05/24/2025 7:46 AM EST [facility] Comment:Accuracy of a glucos e result obtained from a capillary whole blood specimen relies upon adequate, non-compromised capillary blood flow. If the capillary glucose result is not consistent with the patient's clinical signs and symptoms, glucose testing should be repeated with either an arterial or venous sample on the glucometer or sent to the main labortory for testing. Comment 05/24/2025 7:46 AM EST [facility] Bilingual Social Worker ID Aster Serrano 05/24/2025 7:46 AM EST [facility] Device ID [id number] 05/24/2025 7:46 AM EST [facility] Specimen Type POC Capillary 05/24/2025 7:46 AM EST [facility] Blood Capillary blood specimen / Unknown 05/24/2025 7:45 AM EST 05/24/2025 7:46 AM EST us Alison Burns MD LAB POINT OF CARE TE ST DOCKED DEVICE UNSOLICITED RESULTS Final Result [facility] [address] [place] [address] * (ABNORMAL) Vitamin B12 (05/24/2025 6:59 AM EST) Vitamin B12, Serum 1,723(H) 210 - 1,033 pg/mL 05/24/2025 11:53 AM EST [facility] Blood Venous blood specimen / Unknown Venipuncture / Unknown 05/24/2025 6:59 AM EST 05/24/2025 7:01 AM EST us Mannie Alves APRN, FELISA LAB BLOOD ORDERAB LES Final Result Performing Organization Address City/[facility]/ZIP Co de Phone Number [facility] [address] [place] [address] * Folate (05/24/2025 6:59 AM EST) Folate, Serum 17.7 >4.6 ng/mL 05/24/2025 11:53 AM EST [facility] Blood Venous blood specimen / Unknown Venipuncture / Unknown 05/24/2025 6:59 AM EST 05/24/2025 7:01 AM EST us Mannietanvir Alves APRN, DNP LAB BLOOD ORDERAB LES Final Result Performing Organization Address City/[facility]/ZIP Co de Phone Number [facility] [address] [place] [address] * Ammonia, Plasma (05/24/2025 6:59 AM EST) [facility] Ammonia 33 11 - 51 umol/L 05/24/2025 7:40 AM EST [facility] Blood Venous blood specimen / Unknown Venipuncture / Unknown 05/24/2025 6:59 AM EST 05/24/2025 7:01 AM EST Mannie Alves APRN, DNP LAB BLOOD ORDERAB LES Final Result Performing Organization Address [facility] de Phone Number [facility] [address] [place] [address] * (ABNORMAL) Lactate, venous (05/24/2025 6:59 AM EST) [facility] Lactate, Venous, Whole Blood 3.3(H) 0.5 - 2.2 mmol/L LAB HEMATOLOGY METHOD 05/24/2025 7:10 AM EST [facility] Blood Venous blood specimen / Unknown Venipuncture / Unknown 05/24/2025 6:59 AM EST 05/24/2025 7:00 AM EST Mannie Alves APRN [facility] LAB BLOOD ORDERAB LES Final Result Performing Organization Address [facility] Phone Number [facility] [address] [place] [address] * (ABNORMAL) POCT glucose meter (05/24/2025 6:15 AM EST) [facility] POCT Glucose 155(H) 74 - 99 mg/dL 05/24/2025 6:16 AM EST [facility] Comment:Accuracy of a glucos e result obtained from a capillary whole blood specimen relies upon adequate, non-compromised capillary blood flow. If the capillary glucose result is not consistent with the patient's clinical signs and symptoms, glucose testing should be repeated with either an arterial or venous sample on the glucometer or sent to the main labortory for testing. Comment 05/24/2025 6:16 AM EST [facility] Bilingual Social Worker ID Tristan Villafana 05/24/2025 6:16 AM EST [facility] Device ID [id number] 05/24/2025 6:16 AM EST [facility] Specimen Type POC Capillary 05/24/2025 6:16 AM EST [facility] Blood Capillary blood specimen / Unknown 05/24/2025 6:15 AM EST 05/24/2025 6:16 AM EST Lisette Quarles MD LAB POINT OF CARE TEST DOCKED DEVICE UNSOLICITED RESULTS Final Result Performing Organization Address City/[facility]/ZIP Co de Phone Number [facility] [address] [place] [address] * (ABNORMAL) Vitamin B12 (05/24/2025 4:23 AM EST) Vitamin B12, Serum 1,834(H) 210 - 1,033 pg/mL 05/24/2025 9:39 AM EST [facility] Blood Venous blood specimen / Unknown Venipuncture / Unknown 05/24/2025 4:23 AM EST 05/24/2025 4:28 AM EST Abdoul Rouse MD LAB BLOOD ORDERABLES Final Res ult Performing Organization Address City/[facility]/ZIP Co de Phone Number [facility] [address] [place] [address] * Folate (05/24/2025 4:23 AM EST) Folate, Serum 17.0 >4.6 ng/mL 05/24/2025 9:39 AM EST [facility] Blood Venous blood specimen / Unknown Venipuncture / Unknown 05/24/2025 4:23 AM EST 05/24/2025 4:28 AM EST us Abdoul Rouse MD LAB BLOOD ORDERABLES Final Res ult Performing Organization Address City/[facility]/ZIP Co de Phone Number [facility] [address] [place] [address] * Blood Culture (Aerobic/Anaerobet Set) (05/24/2025 4:05 AM EST) Culture No growth at day 5 05/29/2025 9:01 AM EST [facility] Blood Structure of left hand / Unknown Venipuncture / Unknown 05/24/2025 4:05 AM EST 05/24/2025 4:11 AM EST Narrative [facility] - 05/29/2025 9:01 AM EST Low blood volume submitted, results may be compromised us Abdoul Rouse MD LAB MICROBIOLOGY - GENERAL ORD ERABLES Final Result Performing Organization Address [facility]/ZIP Co de Phone Number [facility] [address] [place] [address] * Blood Culture (Aerobic/Anaerobet Set) (05/24/2025 4:05 AM EST) Culture No growth at day 5 05/29/2025 9:01 AM EST [facility] Blood Structure of right hand / Unknown Venipuncture / Unknown 05/24/2025 4:05 AM EST 05/24/2025 4:11 AM EST us Abdoul Rouse MD LAB MICROBIOLOGY - GENERAL ORD ERABLES Final Result Performing Organization Address City/[facility] Co de Phone Number [facility] [address] [place] [address] * (ABNORMAL) POCT glucose meter (05/24/2025 3:52 AM EST) POCT Glucose 136(H) 74 - 99 mg/dL 05/24/2025 3:54 AM EST [facility] Comment:Accuracy of a glucos e result obtained from a capillary whole blood specimen relies upon adequate, non-compromised capillary blood flow. If the capillary glucose result is not consistent with the patient's clinical signs and symptoms, glucose testing should be repeated with either an arterial or venous sample on the glucometer or sent to the main labortory for testing. Comment 05/24/2025 3:54 AM EST [facility] Bilingual Social Worker ID Tristan Villafana 05/24/2025 3:54 AM EST [facility] Device ID [id number] 05/24/2025 3:54 AM EST [facility] Specimen Type POC Capillary 05/24/2025 3:54 AM EST [facility] Blood Capillary blood specimen / Unknown 05/24/2025 3:52 AM EST 05/24/2025 3:54 AM EST us Abdoul Rouse MD LAB POINT OF CARE TE ST DOCKED DEVICE UNSOLICITED RESULTS Final Result [facility] [address] [place] [address] * (ABNORMAL) Bilirubin, direct (05/24/2025 3:39 AM EST) Direct Bilirubin, Plasma 2.5(H) <=0.3 mg/dL 05/24/2025 12:27 PM EST [facility] Blood Venous blood specimen / Unknown Venipuncture / Unknown 05/24/2025 3:39 AM EST 05/24/2025 3:42 AM EST us Alison Burns MD LAB BLOOD ORDERABLES Final Re sult Performing Organization Address City/[facility]/ZIP Co de Phone Number [facility] [address] [place] [address] * Osmolality (05/24/2025 3:39 AM EST) Osmolality, Serum 283 275 - 295 mOsm/Kg 05/24/2025 8:17 AM EST [facility] Blood Venous blood specimen / Unknown Venipuncture / Unknown 05/24/2025 3:39 AM EST 05/24/2025 3:42 AM EST us Mannie Alves APRN, DNP LAB BLOOD ORDERAB LES Final Result [facility] [address] [place] [address] * (ABNORMAL) C-Reactive protein (05/24/2025 3:39 AM EST) CRP, Plasma 26.7(H) <=8.0 mg/L 05/24/2025 4:13 AM EST [facility] Blood Venous blood specimen / Unknown Venipuncture / Unknown 05/24/2025 3:39 AM EST 05/24/2025 3:42 AM EST Narrative [facility] - 05/24/2025 4:13 AM EST This CRP test is appropriate for assessment of infection, systemic inflammation and/or tissue injury. To assess cardiovascular disease risk order high sensitivity CRP (CRPH). us Abdoul Rouse MD LAB BLOOD ORDERABLES Final Res ult Performing Organization Address [facility] de Phone Number [facility] [address] [place] [address] * Free T4, Plasma (05/24/2025 3:39 AM EST) Free T4, Plasma 1.2 0.8 - 1.7 ng/dL 05/24/2025 4:18 AM EST [facility] Blood Venous blood specimen / Unknown Venipuncture / Unknown 05/24/2025 3:39 AM EST 05/24/2025 3:42 AM EST Narrative [facility] - 05/24/2025 4:18 AM EST Free T4 Trimester Specific Ranges 1st Trimester 0.9 - 1.50 ng/dL 2nd Trimester 0.7 - 1.40 ng/dL 3rd Trimester 0.7 - 1.24 ng/dL us Abdoul Rouse MD LAB BLOOD ORDERABLES Final Res ult Performing Organization Address [facility] de Phone Number [facility] [address] [place] [address] * Thyroid Stimulating Hormone, Plasma (05/24/2025 3:39 AM EST) Thyroid Stimulating Hormone, Plasma 1.31 0.40 - 4.20 uIU/mL 05/24/2025 4:18 AM EST [facility] Blood Venous blood specimen / Unknown Venipuncture / Unknown 05/24/2025 3:39 AM EST 05/24/2025 3:42 AM EST Narrative [facility] - 05/24/2025 4:18 AM EST Trimester Specific Ranges TSH ( IU/mL) 1st Trimester 0.1 - 3.0 2nd Trimester 0.19 - 4.06 3rd Trimester 0.3 - 3.7 us Abdoul Rouse MD LAB BLOOD ORDERABLES Final Res ult [facility] [address] [place] [address] * (ABNORMAL) Blood gas panel, venous (05/24/2025 3:39 AM EST) pH, Venous 7.35 7.32 - 7.43 LAB HEMATOLOGY METHOD 05/24/2025 3:56 AM EST [facility] pCO2, Venous 42 37 - 52 mmHg LAB HEMATOLOGY METHOD 05/24/2025 3:56 AM EST [facility] pO2, Venous <15(L) 25 - 40 mmHg LAB HEMATOLOGY METHOD 05/24/2025 3:56 AM EST [facility] SO2, Measured, Venous 17(L) 65 - 80 % LAB HEMATOLOGY METHOD 05/24/2025 3:56 AM EST [facility] Base Excess, Venous -2.2(L) -2.0 - 3.0 mmol/L LAB HEMATOLOGY METHOD 05/24/2025 3:56 AM EST [facility] Bicarbonate, Calculated, Venous 23 22 - 26 mmol/L LAB HEMATOLOGY METHOD 05/24/2025 3:56 AM EST [facility] Hematocrit, Whole Blood 34.8 34.0 - 45.0 % LAB HEMATOLOGY METHOD 05/24/2025 3:56 AM EST [facility] Sodium, Whole Blood 129(L) 136 - 145 mmol/L LAB HEMATOLOGY METHOD 05/24/2025 3:56 AM EST [facility] Potassium, Whole Blood 4.9 3.6 - 4.9 mmol/L LAB HEMATOLOGY METHOD 05/24/2025 3:56 AM EST [facility] Chloride, Whole Blood 100 97 - 107 mmol/L LAB HEMATOLOGY METHOD 05/24/2025 3:56 AM EST [facility] Glucose, Whole Blood 134(H) 74 - 99 mg/dL LAB HEMATOLOGY METHOD 05/24/2025 3:56 AM EST [facility] Lactate, Venous, Whole Blood 3.5(H) 0.5 - 2.2 mmol/L LAB HEMATOLOGY METHOD 05/24/2025 3:56 AM [facility] Ionized Calcium, Whole Blood 4.8 4.6 - 5.1 mg/dL LAB HEMATOLOGY METHOD 05/24/2025 3:56 AM EST [facility] Blood Venous blood specimen / Unknown Venipuncture / Unknown 05/24/2025 3:39 AM EST 05/24/2025 3:42 AM EST us Abdoul Rouse MD LAB BLOOD ORDERABLES Final Res ult Performing Organization Address [facility] Co de Phone Number [facility] [address] [place] [address] * Lipase (05/24/2025 3:39 AM EST) Lipase, Plasma 29 19 - 63 U/L 05/24/2025 4:13 AM EST [facility] Blood Venous blood specimen / Unknown Venipuncture / Unknown 05/24/2025 3:39 AM EST 05/24/2025 3:42 AM EST us Abdoul Rouse MD LAB BLOOD ORDERABLES Final Res ult Performing Organization Address [facility] Phone Number [facility] [address] [place] [address] * Phosphorus (05/24/2025 3:39 AM EST) Phosphorus, Plasma 2.9 2.5 - 4.5 mg/dL 05/24/2025 4:13 AM EST [facility] Blood Venous blood specimen / Unknown Venipuncture / Unknown 05/24/2025 3:39 AM EST 05/24/2025 3:42 AM EST us Abdoul Rouse MD LAB BLOOD ORDERABLES Final Res ult Performing Organization Address City/[facility] Phone Number [facility] [address] [place] [address] * (ABNORMAL) CMP (05/24/2025 3:39 AM EST) Glucose, Plasma 145(H) 74 - 99 mg/dL 05/24/2025 4:13 AM EST [facility] BUN, Plasma 20 7 - 21 mg/dL 05/24/2025 4:13 AM EST [facility] Creatinine, Plasma 0.93 0.60 - 1.10 mg/dL 05/24/2025 4:13 AM EST [facility] BUN/Creatinine Ratio 22 05/24/2025 4:13 AM EST [facility] Sodium, Plasma 128(L) 136 - 145 mmol/L 05/24/2025 4:13 AM EST [facility] Potassium, Plasma 5.1(H) 3.6 - 4.9 mmol/L 05/24/2025 4:13 AM EST [facility] Chloride, Plasma 97 97 - 107 mmol/L 05/24/2025 4:13 AM EST [facility] CO2, Plasma 22 22 - 29 mmol/L 05/24/2025 4:13 AM EST [facility] Anion Gap 9 6 - 16 mmol/L 05/24/2025 4:13 AM EST [facility] Total Calcium, Plasma 8.6(L) 8.9 - 10.2 mg/dL 05/24/2025 4:13 AM EST [facility] Total Protein 5.6(L) 6.3 - 7.9 g/dL 05/24/2025 4:13 AM EST [facility] Albumin, Plasma 2.7(L) 3.5 - 5.2 g/dL 05/24/2025 4:13 AM EST [facility] AST, Plasma 78(H) 10 - 35 U/L 05/24/2025 4:13 AM EST [facility] ALT, Plasma 59(H) 10 - 35 U/L 05/24/2025 4:13 AM EST [facility] Alkaline Phosphatase, Plasma 141(H) 35 - 104 U/L 05/24/2025 4:13 AM EST [facility] Total Bilirubin, Plasma 5.5(H) 0.2 - 1.1 mg/dL 05/24/2025 4:13 AM EST [facility] eGFRcr 72.7 mL/min/1.7 3m*2 05/24/2025 4:13 AM EST [facility] Comment:Reported eGFRcr in m L/min/1.73m2 is based the CKD-EPI 2020 equation that does not use a race coefficient. Blood Venous blood specimen / Unknown Venipuncture / Unknown 05/24/2025 3:39 AM EST 05/24/2025 3:42 AM EST us Abdoul Rouse MD LAB BLOOD ORDERABLES Final Res ult [facility] [address] [place] [address] * Magnesium (05/24/2025 3:39 AM EST) Magnesium, Plasma 1.9 1.9 - 2.4 mg/dL 05/24/2025 4:13 AM EST [facility] Blood Venous blood specimen / Unknown Venipuncture / Unknown 05/24/2025 3:39 AM EST 05/24/2025 3:42 AM EST us Abdoul Rouse MD LAB BLOOD ORDERABLES Final Res ult Performing Organization Address City/[facility]/ZIP Co de Phone Number [facility] [address] [place] [address] * (ABNORMAL) APTT (05/24/2025 3:39 AM EST) aPTT 41(H) 25 - 35 sec 05/24/2025 3:57 AM EST [facility] Blood Venous blood specimen / Unknown Venipuncture / Unknown 05/24/2025 3:39 AM EST 05/24/2025 3:42 AM EST us Abdoul Rouse MD LAB BLOOD ORDERABLES Final Res ult Performing Organization Address City/[facility] Co de Phone Number [facility] [address] [place] [address] * (ABNORMAL) PT-INR (05/24/2025 3:39 AM EST) Prothrombin Time 19.4(H) 12.0 - 14.3 sec 05/24/2025 3:56 AM EST [facility] INR 1.6(H) 0.9 - 1.1 05/24/2025 3:56 AM EST [facility] Blood Venous blood specimen / Unknown Venipuncture / Unknown 05/24/2025 3:39 AM EST 05/24/2025 3:42 AM EST Narrative [facility] - 05/24/2025 3:56 AM EST OPTIMAL INR RANGES FOR PATIENT ON ORAL ANTICOAGULANT THERAPY Prevention of venous thromboembolism INR 2.0 to 3.0 In patients with heart disease: Atrial fibrillation INR 2.0 to 3.0 Valvular heart disease INR 2.0 to 3.0 Tissue heart valves INR 2.0 to 3.0 Mechanical prosthetic valves INR 2.5 to 3.5 Prevention of recurrent AR INR 2.5 to 3.5 us Abdoul Rouse MD LAB BLOOD ORDERABLES Final Res ult [facility] [address] [place] [address] * (ABNORMAL) CBC w/diff (05/24/2025 3:39 AM EST) Pathologist [facility] WBC Count 14.23(H) 3.70 - 10.30 10*3/uL LAB HEMATOLOGY METHOD 05/24/2025 3:45 AM EST [facility] RBC Count 3.11(L) 3.90 - 5.20 10*6/uL LAB HEMATOLOGY METHOD 05/24/2025 3:45 AM EST [facility] HGB 11.1(L) 11.2 - 15.7 g/dL LAB HEMATOLOGY METHOD 05/24/2025 3:45 AM EST [facility] HCT 32.6(L) 34.0 - 45.0 % LAB HEMATOLOGY METHOD 05/24/2025 3:45 AM EST [facility] Platelet Count 53(L) 155 - 369 10*3/uL LAB HEMATOLOGY METHOD 05/24/2025 3:45 AM EST [facility] MCV 105(H) 79 - 98 fL LAB HEMATOLOGY METHOD 05/24/2025 3:45 AM EST [facility] MCH 35.7(H) 26.0 - 32.0 pg LAB HEMATOLOGY METHOD 05/24/2025 3:45 AM EST [facility] MCHC 34.0 30.7 - 35.5 g/dL LAB HEMATOLOGY METHOD 05/24/2025 3:45 AM EST [facility] RDW 16.4(H) 11.5 - 14.5 % LAB HEMATOLOGY METHOD 05/24/2025 3:45 AM EST [facility] MPV 9.9 8.8 - 12.5 fL LAB HEMATOLOGY METHOD 05/24/2025 3:45 AM EST [facility] nRBC 0.0 <=0.0 per 100 WBCs LAB HEMATOLOGY METHOD 05/24/2025 3:45 AM EST [facility] Differential Type Automated LAB HEMATOLOGY METHOD 05/24/2025 3:45 AM EST [facility] Neutrophils % 84 % LAB HEMATOLOGY METHOD 05/24/2025 3:45 AM EST [facility] Lymphocytes % 6 % LAB HEMATOLOGY METHOD 05/24/2025 3:45 AM EST [facility] Monocytes % 8 % LAB HEMATOLOGY METHOD 05/24/2025 3:45 AM EST [facility] Eosinophils % 1 % LAB HEMATOLOGY METHOD 05/24/2025 3:45 AM EST [facility] Basophils % 0 % LAB HEMATOLOGY METHOD 05/24/2025 3:45 AM EST [facility] Immature Granulocytes % 1 % LAB HEMATOLOGY METHOD 05/24/2025 3:45 AM EST [facility] Neutrophils Absolute 12.03(H) 1.60 - 6.10 10*3/uL LAB HEMATOLOGY METHOD 05/24/2025 3:45 AM EST [facility] Lymphocytes Absolute 0.78(L) 1.20 - 3.90 10*3/uL LAB HEMATOLOGY METHOD 05/24/2025 3:45 AM EST [facility] Monocytes Absolute 1.08(H) 0.30 - 0.90 10*3/uL LAB HEMATOLOGY METHOD 05/24/2025 3:45 AM EST [facility] Eosinophils Absolute 0.14 0.00 - 0.50 10*3/uL LAB HEMATOLOGY METHOD 05/24/2025 3:45 AM EST [facility] Basophils Absolute 0.03 0.00 - 0.10 10*3/uL LAB HEMATOLOGY METHOD 05/24/2025 3:45 AM EST [facility] Immature Granulocytes Absolute 0.17(H) 0.00 - 0.06 10*3/uL LAB HEMATOLOGY METHOD 05/24/2025 3:45 AM EST [facility] Blood Venous blood specimen / Unknown Venipuncture / Unknown 05/24/2025 3:39 AM EST 05/24/2025 3:42 AM EST Narrative [facility] - 05/24/2025 3:45 AM EST Therapeutic decision making should be based on absolute values, rather than percentages. us Abdoul Rouse MD LAB BLOOD ORDERABLES Final Res ult [facility] [address] [place] [id number] * EKG now - STAT (adult) (05/24/2025 3:33 AM EST) EKG DIAGNOSIS CLASS Borderline Normal MUSE ECG Ventricular Rate 125 BPM MUSE ECG Atrial Rate 125 BPM MUSE ECG ND Interval 124 ms MUSE ECG QRSD Interval 78 ms MUSE ECG QT Interval 330 ms MUSE ECG QTC Interval 476 ms MUSE ECG P [place] 56 degrees MUSE ECG R [place] 21 degrees MUSE ECG T Wave [place] 60 degrees MUSE ECG Diagnosis Sinus tachycardia MUSE ECG Diagnosis Otherwise normal ECG MUSE ECG Diagnosis MUSE ECG Diagnosis Confirmed by Prince Esteves ([id number]) on 05/24/2025 10:36:59 PM MUSE ECG 05/24/2025 3:33 AM EST 05/24/2025 10:36 PM EST us Abdoul Rouse MD ECG ORDERABLES Final Result MUSE ECG documented in this encounter Visit Diagnoses Diagnosis Sepsis, due to unspecified organism, unspecified whether acute organ dysfunction present- Primary Sepsis, due to unspecified organism, unspecified whether acute organ dysfunction present Decompensation of cirrhosis of liver (CMS/HCC) Hyponatremia Hyposmolality and/or hyponatremia 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 Encephalopathy, hepatic (CMS/HCC) Hepatic encephalopathy Abnormal electrocardiogram (ECG) (EKG) Abrasion, left knee, initial encounter Anxiety and depression Diabetes mellitus without complication Type II or unspecified type diabetes mellitus without mention of complication, not stated as uncontrolled 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 Transaminitis Nonspecific elevation of levels of transaminase or lactic acid dehydrogenase (LDH) Coagulopathy Other and unspecified coagulation defects documented in this encounter Admitting Diagnoses Diagnosis Sepsis, due to unspecified organism, unspecified whether acute organ dysfunction present documented in this encounter Administered Medications Inactive Administered Medications - up to 3 most recent administrations Medication Order MAR Action Action Date Dose Rate Site acetaminophen (Tylenol) tablet 500 mg 500 mg, Oral, Every 6 hours PRN, Starting on Wed05/30/25 at 1713, Until Kirstin 05/31/25 at 1649, Routine, headaches, fever Given 05/30/2025 5:23 PM EST 500 mg bumetanide (Bumex) injection 2 mg 2 mg, Intravenous, Daily, First dose on 05/28/25 at 0900, Until Discontinued, Routine Given 05/28/2025 9:22 AM EST 2 mg bumetanide (Bumex) injection 2 mg 2 mg, Intravenous, 2 times daily (0900 & 1500), First dose (after last modification) on Wed05/29/25 at 1215, Until Discontinued, Routine Given 05/29/2025 11:19 AM EST 2 mg bumetanide (Bumex) injection 2 mg 2 mg, Intravenous, Once, 1 dose, On Wed05/29/25 at 1800, Routine Given 05/29/2025 6:17 PM EST 2 mg bumetanide (Bumex) tablet 2 mg 2 mg, Oral, Daily, First dose on Wed05/26/25 at 1045, Until Discontinued, Routine Given 05/27/2025 8:36 AM EST 2 mg Given 05/26/2025 10:55 AM EST 2 mg bumetanide (Bumex) tablet 2 mg 2 mg, Oral, 2 times daily (0900 & 1500), First dose on Wed05/30/25 at 1500, Until Discontinued, Routine Given 05/31/2025 8:56 AM EST 2 mg Given 05/30/2025 2:05 PM EST 2 mg busPIRone (Buspar) tablet 7.5 mg 7.5 mg, Oral, 2 times daily, First dose on Wed05/24/25 at 1600, Until Discontinued Given 05/31/2025 8:57 AM EST 7.5 mg Given 05/30/2025 8:35 PM EST 7.5 mg Given 05/30/2025 12:56 PM EST 7.5 mg cholestyramine light (Prevalite) packet 4 g 4 g, Oral, Daily, First dose on Wed05/26/25 at 1045, Until Discontinued, Routine Given 05/31/2025 8:57 AM EST 4 g Given 05/30/2025 12:58 PM EST 4 g Given 05/29/2025 11:23 AM EST 4 g ciprofloxacin (Cipro) tablet 500 mg 500 mg, Oral, 2 times daily, 6 doses, First dose on Wed05/28/25 at 1230, Last dose on Wed05/30/25 at 2100, Routine Given 05/30/2025 8:35 PM EST 500 mg Given 05/30/2025 12:56 PM EST 500 mg Given 05/29/2025 9:47 PM EST 500 mg desvenlafaxine (Pristiq) 24 hr tablet 50 mg 50 mg, Oral, Daily, First dose on 05/27/25 at 1045, Until Discontinued, Routine Given 05/31/2025 8:56 AM EST 50 mg Given 05/30/2025 12:54 PM EST 50 mg Given 05/29/2025 11:22 AM EST 50 mg dextrose 10 % (D10W) bolus 125 mL 125 mL, Intravenous, Every 15 min PRN, Starting on Kirstin 05/24/25 at 0506, Until Kirstin 05/31/25 at 1649, Administer over 15 Minutes, Routine, low blood sugar BG 51-89 mg/dL New Bag 05/29/2025 6:27 AM EST 125 mL 500 mL/hr dextrose 10 % (D10W) bolus 250 mL 250 mL, Intravenous, Every 15 min PRN, Starting on Kirstin 05/24/25 at 0506, Until Kirstin 05/31/25 at 1649, Administer over 15 Minutes, Routine, PRN low blood sugar BG =/<50 mg/dL enoxaparin (Lovenox) syringe 40 mg 40 mg, Subcutaneous, Daily, First dose on 05/26/25 at 0915, Until Discontinued, Routine Given 05/31/2025 8:57 AM EST 40 mg Left Lower Abdomen Given 05/30/2025 12:55 PM EST 40 mg L eft Lower Abdomen Given 05/29/2025 11:23 AM EST 40 mg L eft Lower Abdomen gi cocktail oral solution 30 mL 30 mL, Oral, 4 times daily PRN, Starting on Wed05/29/25 at 2305, Until Wed05/31/25 at 1649, Routine, heartburn, indigestion, cramping glucagon (human recombinant) injection 1 mg 1 mg, Intramuscular, Every 15 min PRN, Starting on Kirstin 05/24/25 at 0506, Until Kirstin 05/31/25 at 1649, Routine, low blood sugar per Hypoglycemia Prevention and Treatment protocol glucose (Glutose) 40 % oral gel 15-30 grams of glucose 15-30 grams of glucose, Sublingual, Every 15 min PRN, Starting on Kirstin 05/24/25 at 0506, Until Kirstin 05/31/25 at 1649, Routine, low blood sugar, per Hypoglycemia Prevention and Treatment protocol hydrOXYzine pamoate (Vistaril) capsule 25 mg 25 mg, Oral, 3 times daily PRN, Starting on Wed05/24/25 at 2114, Until Wed05/25/25 at 0140, STAT, itching Given 05/24/2025 9:33 PM EST 25 mg hydrOXYzine pamoate (Vistaril) capsule 25 mg 25 mg, Oral, 4 times daily PRN, Starting on Wed05/25/25 at 0140, Until 05/27/25 at 0949, STAT, itching Given 05/26/2025 8:46 PM EST 25 mg Given 05/26/2025 4:04 AM EST 25 mg Given 05/25/2025 8:51 PM EST 25 mg hydrOXYzine pamoate (Vistaril) capsule 25 mg 25 mg, Oral, Daily PRN, Starting on 05/27/25 at 0949, Until Kirstin 05/31/25 at 1649, STAT, itching Given 05/30/2025 8:35 PM EST 25 mg Given 05/29/2025 9:47 PM EST 25 mg Given 05/28/2025 9:31 PM EST 25 mg insulin lispro (Admelog) 100 units/mL injection - Correction - Standard Dose 0-5 Units, Subcutaneous, 3 times daily with meals, First dose on Wed05/24/25 at 0830, Until Discontinued, Routine Given 05/30/2025 5:09 PM EST 1 Units Left Lower Abdomen Given 05/30/2025 1:21 PM EST 1 Units Le ft Lower Abdomen Given 05/29/2025 6:17 PM EST 1 Units Le ft Lower Abdomen insulin lispro (Admelog) injection - Correction - Nighttime Dose 0-3 Units, Subcutaneous, 2 times nightly (2100 & 0300), First dose on Wed05/24/25 at 2100, Until Discontinued, Routine lactated Ringer's infusion 1,000 mL 1,000 mL, Intravenous, Once (Bolus), 1 dose, On Wed05/24/25 at 0355, STAT New Bag 05/24/2025 4:24 AM EST 1,000 mL magnesium sulfate IVPB 2 g 2 g, Intravenous, Once, 1 dose, On Wed05/30/25 at 0915, Routine New Bag 05/30/2025 12:57 PM EST 2 g 25 mL/hr magnesium sulfate IVPB 2 g 2 g, Intravenous, Once, 1 dose, On Wed05/31/25 at 1045, Routine New Bag 05/31/2025 10:23 AM EST 2 g 25 mL/hr metoprolol tartrate (Lopressor) split tablet 12.5 mg 12.5 mg, Oral, 2 times daily, First dose on Wed05/24/25 at 2100, Until Discontinued, Routine Given 05/31/2025 8:56 AM EST 12.5 mg Given 05/30/2025 12:55 PM EST 12.5 mg Given 05/29/2025 9:47 PM EST 12.5 mg ondansetron (Zofran) 4 MG/5ML solution 4 mg 4 mg, Oral, Every 6 hours PRN, Starting on Wed05/24/25 at 0507, Until Wed05/31/25 at 1649, Routine, nausea, vomiting ondansetron (Zofran) injection 4 mg 4 mg, Intravenous, Every 6 hours PRN, Starting on Wed05/24/25 at 0507, Until Wed05/31/25 at 1649, Routine, vomiting, nausea ondansetron ODT (Zofran-ODT) disintegrating tablet 4 mg 4 mg, Oral, Every 6 hours PRN, Starting on Wed05/24/25 at 0507, Until Wed05/31/25 at 1649, Routine, nausea, vomiting oxyCODONE (Roxicodone) immediate release tablet 5 mg 5 mg, Oral, Every 4 hours PRN, Starting on Wed05/27/25 at 0948, Until Wed05/29/25 at 0821, Routine, Moderate Severe Pain with CPOT score of 3 or greater OR FLACC PAINAD NPASS NRS Gil-Fuentes Faces score of 4 or greater OR DVPRS NIPS score of 5 or greater Given 05/27/2025 11:59 PM EST 5 mg oxyCODONE (Roxicodone) immediate release tablet 5 mg 5 mg, Oral, Once, 1 dose, On Wed05/30/25 at 0030, Routine Given 05/30/2025 12:04 AM EST 5 mg oxyCODONE (Roxicodone) immediate release tablet 7.5 mg 7.5 mg, Oral, Every 4 hours PRN, Starting on Kirstin 05/24/25 at 1257, Until 05/27/25 at 0949, Routine, Moderate Severe Pain with CPOT score of 3 or greater OR FLACC PAINAD NPASS NRS Gil-Fuentes Faces score of 4 or greater OR DVPRS NIPS score of 5 or greater Given 05/26/2025 4:[address] 7.5 mg Given 05/25/2025 9:04 PM EST 7.5 mg Given 05/25/2025 9:33 AM EST 7.5 mg pantoprazole (Protonix) EC tablet 40 mg 40 mg, Oral, Daily, First dose on Kirstin 05/24/25 at 0730, Until Discontinued Given 05/31/2025 8:56 AM EST 40 mg Given 05/30/2025 12:56 PM EST 40 mg Given 05/29/2025 11:20 AM EST 40 mg phosphorus (K Phos Neutral) tablet 1 tablet 1 tablet (250 mg), Oral, 3 times daily, 3 doses, First dose on Wed05/30/25 at 0915, Last dose on Wed05/30/25 at 2100, Routine Given 05/30/2025 8:35 P M EST 1 tablet Given 05/30/2025 5:09 PM EST 1 tablet Given 05/30/2025 12:53 PM EST 1 tablet phosphorus (K Phos Neutral) tablet 2 tablet 2 tablet (500 mg), Oral, Once, 1 dose, On Wed05/25/25 at 0900, Routine Given 05/25/2025 9:16 AM EST 2 tablets piperacillin-tazobactam (Zosyn) 3.375 g in sodium chloride 0.9% 100 mL IVPB (vial adapter required) 3.375 g, Intravenous, Every 6 hours, First dose on Kirstin 05/24/25 at 0355, Until Discontinued, STAT New Bag 05/28/2025 5:59 AM EST 3.375 g 220 mL/hr New Bag 05/27/2025 11:44 PM EST 3.375 g 220 mL/hr New Bag 05/27/2025 4:03 PM EST 3.375 g 220 mL/hr potassium chloride CR (Klor-Con) ER tablet 40 mEq 40 mEq, Oral, Once, 1 dose, On Wed05/30/25 at 0915, Routine Given 05/30/2025 12:53 PM EST 40 mEq pregabalin (Lyrica) capsule 25 mg 25 mg, Oral, Nightly, First dose (after last modification) on Kirstin 05/24/25 at 2100, Until Discontinued, Routine Given 05/30/2025 8:34 PM EST 25 mg Given 05/29/2025 9:47 PM EST 25 mg Given 05/28/2025 9:31 PM EST 25 mg regadenoson (Lexiscan) injection 0.4 mg 0.4 mg, Intravenous, Once, 1 dose, On Wed05/30/25 at 1015, Routine Given 05/30/2025 10:24 AM EST 0.4 mg rifAXIMin (Xifaxan) tablet 550 mg 550 mg, Oral, 2 times daily, First dose on Wed05/24/25 at 1300, Until Discontinued, Routine Given 05/31/2025 8:56 AM EST 550 mg Given 05/30/2025 8:37 PM EST 550 mg Given 05/30/2025 12:55 PM EST 550 mg rOPINIRole (Requip) tablet 1 mg 1 mg, Oral, Daily, First dose on Kirstin 05/24/25 at 1600, Until Discontinued, Routine Given 05/24/2025 3:44 PM EST 1 mg rOPINIRole (Requip) tablet 1 mg 1 mg, Oral, 3 times daily, First dose (after last modification) on Wed05/24/25 at 2200, Until Discontinued, RoutineIndications:Restless Leg Syndrome Given 05/31/2025 8:57 AM EST 1 mg Given 05/30/2025 8:34 PM EST 1 mg Given 05/30/2025 5:08 PM EST 1 mg sodium chloride 0.9 % flush 10 mL 10 mL, Intravenous, Every 12 hours, First dose on Kirstin 05/24/25 at 0510, Until Discontinued, Routine Given 05/31/2025 8:57 AM EST 10 mL Given 05/30/2025 5:09 PM EST 10 mL Given 05/30/2025 6:27 AM EST 10 mL sodium chloride 0.9 % flush 10 mL 10 mL, Intravenous, As needed, Starting on Wed05/24/25 at 0504, Until Wed05/31/25 at 1649, Routine, line care sodium chloride 0.9 % infusion 75 mL/hr, Intravenous, Continuous, Starting on Kirstin 05/24/25 at 0815, Until 05/26/25 at 0937, Routine New Bag 05/25/2025 12:40 PM EST 75 mL/hr 75 m L/hr New Bag 05/24/2025 11:42 PM EST 75 mL/hr 75 mL/hr New Bag 05/24/2025 10:15 AM EST 75 mL/hr 75 mL/hr spironolactone (Aldactone) tablet 100 mg 100 mg, Oral, Daily, First dose on 05/26/25 at 1045, Until Discontinued, Routine Given 05/27/2025 8:3 6 AM EST 100 mg Given 05/26/2025 10:55 AM EST 100 mg spironolactone (Aldactone) tablet 100 mg 100 mg, Oral, 2 times daily (0900 & 1500), First dose (after last modification) on 05/27/25 at 1500, Until Discontinued, Routine Given 05/29/2025 4:0 0 PM EST 100 mg Given 05/29/2025 11:21 AM EST 100 mg Given 05/28/2025 3:48 PM EST 100 mg spironolactone (Aldactone) tablet 200 mg 200 mg, Oral, Daily, First dose (after last modification) on Wed05/30/25 at 0915, Until Discontinued, Routine Given 05/31/2025 8:57 AM EST 200 mg Given 05/30/2025 12:54 PM EST 200 mg Technetium Tc 99m Sestamibi radio-isotope injection 23.9 millicurie 23.9 millicurie, Intravenous, Once, 1 dose, On Wed05/30/25 at 1415, Routine Given 05/30/2025 1:27 PM EST 23.9 millicuries Technetium Tc 99m Sestamibi radio-isotope injection 7 millicurie 7 millicurie, Intravenous, Once, 1 dose, On Wed05/30/25 at 0945, Routine Given 05/30/2025 8:53 AM EST 7 millicuries valACYclovir (Valtrex) tablet 500 mg 500 mg, Oral, Every morning, First dose on Wed05/25/25 at 0600, Until Discontinued, Routine Given 05/31/2025 5:33 AM EST 500 mg Given 05/30/2025 5:55 AM EST 500 mg Given 05/29/2025 6:08 AM EST 500 mg zinc sulfate (Zincate) capsule 220 mg 220 mg, Oral, 2 times daily, First dose on Wed05/24/25 at 1300, Until Discontinued, Routine Given 05/31/2025 8:56 AM EST 220 mg Given 05/30/2025 8:35 PM EST 220 mg Given 05/30/2025 12:56 PM EST 220 mg documented in this encounter Active and Recently Administered Medications Times are shown in EST. Scheduled Medication Order 05/29/2025 05/30/2025 05/31/2025 bumetanide (Bumex) injection 2 mg (CANCELED) 2 mg, Intravenous, 2 times daily (0900 & 1500), First dose (after last modification) on Wed05/29/25 at 1215, Until Discontinued, Routine 1119 (Given - Provider: Oly Mendiola RN)1532 (Not Given - Provider: Oly Mendiola RN - Reason: Order changed) bumetanide (Bumex) injection 2 mg (COMPLETED) 2 mg, Intravenous, Once, 1 dose, On Wed05/29/25 at 1800, Routine 1817 (Given - Provider: Oly Mendiola RN) bumetanide (Bumex) tablet 2 mg 2 mg, Oral, 2 times daily (0900 & 1500), First dose on Wed05/30/25 at 1500, Until Discontinued, Routine 1405 (Given - Provider: Oly Mendiola RN) 0856 (Given - Provider: Sharri River, CORWIN)1500 (Canceled Entry - Provider: Automatic Discharge Provider - Comment: Automatically canceled at discontinue of medication order) busPIRone (Buspar) tablet 7.5 mg 7.5 mg, Oral, 2 times daily, First dose on Wed05/24/25 at 1600, Until Discontinued 1122 (Given - Provider: Oly Mendiola RN)2147 (Given - Provider: Carlos Enrique Cobb RN) 1256 (Given - Provider: Oly Mendiola RN)2035 (Given - Provider: Jarvis Ibrahim RN) 0857 (Given - Provider: Sharri River, CORWIN) cholestyramine light (Prevalite) packet 4 g 4 g, Oral, Daily, First dose on 05/26/25 at 1045, Until Discontinued, Routine 1123 (Given - Provider: Oly Mendiola RN) 1258 (Given - Provider: Oly Mendiola RN) 0857 (Given - Provider: Sharri River, CORWIN) ciprofloxacin (Cipro) tablet 500 mg (COMPLETED) 500 mg, Oral, 2 times daily, 6 doses, First dose on Wed05/28/25 at 1230, Last dose on Wed05/30/25 at 2100, Routine 1121 (Given - Provider: Oly Mendiola RN)2147 (Given - Provider: Carlos Enrique Cobb RN) 1256 (Given - Provider: Oly Mendiola RN)203 (Given - Provider: Jarvis Ibrahim RN) desvenlafaxine (Pristiq) 24 hr tablet 50 mg 50 mg, Oral, Daily, First dose on 05/27/25 at 1045, Until Discontinued, Routine 1122 (Given - Provider: Oly Mendiola RN) 1254 (Given - Provider: Oly Mendiola RN) 0856 (Given - Provider: Sharir River, CORWIN) enoxaparin (Lovenox) syringe 40 mg 40 mg, Subcutaneous, Daily, First dose on 05/26/25 at 0915, Until Discontinued, Routine 1123 (Given - Provider: Oly Mendiola RN) 1255 (Given - Provider: Oly Mendiola RN) 0857 (Given - Provider: Sharri River, CORWIN) insulin lispro (Admelog) 100 units/mL injection - Correction - Standard Dose 0-5 Units, Subcutaneous, 3 times daily with meals, First dose on Kirstin 05/24/25 at 0830, Until Discontinued, Routine 0830 (Not Given - Provider: Oly Mendiola RN - Reason: Patient in procedure)1258 (Not Given - Provider: Oly Mendiola RN - Reason: Order parameters not met)1817 (Given - Provider: Oly Mendiola RN) 0808 (Not Given - Provider: Oly Mendiola RN - Reason: Order parameters not met)1321 (Given - Provider: Oly Mendiola RN)1709 (Given - Provider: Oly Mendiola RN) 0753 (Not Given - Provider: Sharri River RN - Reason: Order parameters not met)1152 (Not Given - Provider: Sharri River RN - Reason: Order parameters not met) insulin lispro (Admelog) injection - Correction - Nighttime Dose 0-3 Units, Subcutaneous, 2 times nightly (2099 & 030), First dose on Wed05/24/25 at 2100, Until Discontinued, Routine 0300 (Not Given - Provider: Carlos Enrique Cobb RN - Reason: Order parameters not met)214 (Not Given - Provider: Carlos Enrique Cobb RN - Reason: Order parameters not met) 0341 (Not Given - Provider: Carlos Enrique Cobb RN - Reason: Order parameters not met)2024 (Not Given - Provider: Jarvis Ibrahim RN - Reason: Order parameters not met - Comment: bg 181) 0241 (Not Given - Provider: Jarvis Ibrahim RN - Reason: Order parameters not met) magnesium sulfate IVPB 2 g (COMPLETED) 2 g, Intravenous, Once, 1 dose, On Wed05/30/25 at 0915, Routine 1257 (New Bag - Provider: Oly Mendiola RN) magnesium sulfate IVPB 2 g (COMPLETED) 2 g, Intravenous, Once, 1 dose, On Wed05/31/25 at 1045, Routine 1023 (New Bag - Provider: Sharri River, CORWIN) metoprolol tartrate (Lopressor) split tablet 12.5 mg 12.5 mg, Oral, 2 times daily, First dose on Wed05/24/25 at 2100, Until Discontinued, Routine 1324 (Not Given - Provider: Oly Mendiola RN - Reason: Hold for condition: must add comment - Comment: bp 98/61)214 (Given - Provider: Carlos Enrique Cobb RN) 1255 (Given - Provider: Oly Mendiola RN)203 (Not Given - Provider: Jarvis Ibrahim RN - Reason: Order parameters not met) 0856 (Given - Provider: Sharri River RN) oxyCODONE (Roxicodone) immediate release tablet 5 mg (COMPLETED) 5 mg, Oral, Once, 1 dose, On Wed05/30/25 at 0030, Routine 0004 (Given - Provider: Carlos Enrique Cobb RN) pantoprazole (Protonix) EC tablet 40 mg 40 mg, Oral, Daily, First dose on Wed05/24/25 at 0730, Until Discontinued 1120 (Given - Provider: Oly Mendiola RN) 1256 (Given - Provider: Oly Mendiola RN) 0856 (Given - Provider: Sharri River RN) phosphorus (K Phos Neutral) tablet 1 tablet (COMPLETED) 1 tablet (250 mg), Oral, 3 times daily, 3 doses, First dose on Wed05/30/25 at 0915, Last dose on Wed05/30/25 at 2100, Routine 1253 (Given - Provider: Oly Mendiola RN)1709 (Given - Provider: Oly Mendiola RN)203 (Given - Provider: Jarvis Ibrahim RN) potassium chloride CR (Klor-Con) ER tablet 40 mEq (COMPLETED) 40 mEq, Oral, Once, 1 dose, On Wed05/30/25 at 0915, Routine 1253 (Given - Provider: Oly Mendiola RN) pregabalin (Lyrica) capsule 25 mg 25 mg, Oral, Nightly, First dose (after last modification) on Wed05/24/25 at 2100, Until Discontinued, Routine 2147 (Given - Provider: Carlos Enrique Cobb RN) 203 (Given - Provider: Jarvis Ibrahim RN) regadenoson (Lexiscan) injection 0.4 mg (COMPLETED) 0.4 mg, Intravenous, Once, 1 dose, On Wed05/30/25 at 1015, Routine 1024 (Given - Provider: Cari Maradiaga RN) rifAXIMin (Xifaxan) tablet 550 mg 550 mg, Oral, 2 times daily, First dose on Wed05/24/25 at 1300, Until Discontinued, Routine 1122 (Given - Provider: Oly Mendiola RN)2147 (Given - Provider: Carlos Enrique Cobb RN) 1255 (Given - Provider: Oly Mendiola RN)2037 (Given - Provider: Jarvis Ibrahim RN) 0856 (Given - Provider: Sharri River, RN) rOPINIRole (Requip) tablet 1 mg 1 mg, Oral, 3 times daily, First dose (after last modification) on Wed05/24/25 at 2200, Until Discontinued, Routine 1122 (Given - Provider: Oly Mendiola RN)1639 (Given - Provider: Oly Mendiola RN)2147 (Given - Provider: Carlos Enrique Cobb RN) 1256 (Given - Provider: Oly Mendiola RN)1708 (Given - Provider: Oly Mendiola RN)2034 (Given - Provider: Jarvis Ibrahim RN) 0857 (Given - Provider: Sharri River RN)1600 (Canceled Entry - Provider: Automatic Discharge Provider - Comment: Automatically canceled at discontinue of medication order) sodium chloride 0.9 % flush 10 mL(Linked Group 1) 10 mL, Intravenous, Every 12 hours, First dose on Wed05/24/25 at 0510, Until Discontinued, Routine 0608 (Given - Provider: Carlos Enrique Cobb RN)1639 (Given - Provider: Oly Mendiola RN) 0627 (Given - Provider: Carlos Enrique Cobb RN)1709 (Given - Provider: Oly Mendiola RN) 0857 (Given - Provider: Sharri River, CORWIN) spironolactone (Aldactone) tablet 100 mg (CANCELED) 100 mg, Oral, 2 times daily (0900 & 1500), First dose (after last modification) on Wed05/27/25 at 1500, Until Discontinued, Routine 1121 (Given - Provider: Oly Mendiola RN)1600 (Given - Provider: Oly Mendiola RN) spironolactone (Aldactone) tablet 200 mg 200 mg, Oral, Daily, First dose (after last modification) on Wed05/30/25 at 0915, Until Discontinued, Routine 1254 (Given - Provider: Oly Mendiola RN) 0857 (Given - Provider: Sharri River, CORWIN) Technetium Tc 99m Sestamibi radio-isotope injection 23.9 millicurie (COMPLETED) 23.9 millicurie, Intravenous, Once, 1 dose, On Wed05/30/25 at 1415, Routine 1327 (Given - Provider: Janice Whiting) Technetium Tc 99m Sestamibi radio-isotope injection 7 millicurie (COMPLETED) 7 millicurie, Intravenous, Once, 1 dose, On Wed05/30/25 at 0945, Routine 0853 (Given - Provider: Janice Whiting) valACYclovir (Valtrex) tablet 500 mg 500 mg, Oral, Every morning, First dose on Wed05/25/25 at 0600, Until Discontinued, Routine 0608 (Given - Provider: Carlos Enrique Cobb RN) 0555 (Given - Provider: Carlos Enrique Cobb RN) 0533 (Given - Provider: Jarvis Ibrahim, CORWIN) zinc sulfate (Zincate) capsule 220 mg 220 mg, Oral, 2 times daily, First dose on Wed05/24/25 at 1300, Until Discontinued, Routine 1121 (Given - Provider: Oly Mendiola RN)2147 (Given - Provider: Carlos Enrique Cobb RN) 1256 (Given - Provider: Oly Mendiola RN)2035 (Given - Provider: Jarvis Ibrahim, CORWIN) 0856 (Given - Provider: Sharri River, CORWIN) PRN Medication Order 05/29/2025 05/30/2025 05/31/2025 acetaminophen (Tylenol) tablet 500 mg 500 mg, Oral, Every 6 hours PRN, Starting on Wed05/30/25 at 1713, Until Wed05/31/25 at 1649, Routine, headaches, fever 1723 (Given - Provider: Oly Mendiola RN) 0536 (Not Given - Provider: Jarvis Ibrahim, CORWIN - Reason: Patient/Family/Repre sentative Refused - Comment: changed mind) dextrose 10 % (D10W) bolus 125 mL(Linked Group 2) 125 mL, Intravenous, Every 15 min PRN, Starting on Wed05/24/25 at 0506, Until Kirstin 05/31/25 at 1649, Administer over 15 Minutes, Routine, low blood sugar BG 51-89 mg/dL 0627 (New Bag - Provider: Carlos Enrique Cobb RN) dextrose 10 % (D10W) bolus 250 mL(Linked Group 2) 250 mL, Intravenous, Every 15 min PRN, Starting on Wed05/24/25 at 0506, Until Kirstin 05/31/25 at 1649, Administer over 15 Minutes, Routine, PRN low blood sugar BG =/<50 mg/dL 27 (See Alternative - Provider: Carlos Enrique Cobb RN) gi cocktail oral solution 30 mL 30 mL, Oral, 4 times daily PRN, Starting on Wed05/29/25 at 2305, Until Wed05/31/25 at 1649, Routine, heartburn, indigestion, cramping glucagon (human recombinant) injection 1 mg(Linked Group 2) 1 mg, Intramuscular, Every 15 min PRN, Starting on Wed05/24/25 at 0506, Until Kirstin 05/31/25 at 1649, Routine, low blood sugar per Hypoglycemia Prevention and Treatment protocol 0627 (See Alternative - Provider: Carlos Enrique Cobb RN) glucose (Glutose) 40 % oral gel 15-30 grams of glucose(Linked Group 2) 15-30 grams of glucose, Sublingual, Every 15 min PRN, Starting on Wed05/24/25 at 0506, Until Kirstin 05/31/25 at 1649, Routine, low blood sugar, per Hypoglycemia Prevention and Treatment protocol 0627 (See Alternative - Provider: Carlos Enrique Cobb RN) hydrOXYzine pamoate (Vistaril) capsule 25 mg 25 mg, Oral, Daily PRN, Starting on Wed05/27/25 at 0949, Until Wed05/31/25 at 1649, STAT, itching 2146 (Given - Provider: Carlos Enrique Cobb RN) 2034 (Given - Provider: Jarvis Ibrahim RN) ondansetron (Zofran) 4 MG/5ML solution 4 mg(Linked Group 3) 4 mg, Oral, Every 6 hours PRN, Starting on Kirstin 05/24/25 at 0507, Until Kirstin 05/31/25 at 1649, Routine, nausea, vomiting ondansetron (Zofran) injection 4 mg(Linked Group 3) 4 mg, Intravenous, Every 6 hours PRN, Starting on Kirstin 05/24/25 at 0507, Until Kirstin 05/31/25 at 1649, Routine, vomiting, nausea ondansetron ODT (Zofran-ODT) disintegrating tablet 4 mg(Linked Group 3) 4 mg, Oral, Every 6 hours PRN, Starting on Kirstin 05/24/25 at 0507, Until Kirstin 05/31/25 at 1649, Routine, nausea, vomiting sodium chloride 0.9 % flush 10 mL(Linked Group 1) 10 mL, Intravenous, As needed, Starting on Kirstin 05/24/25 at 0504, Until Kirstin 05/31/25 at 1649, Routine, line care Linked Groups Order Group 1: Insert peripheral IV (CANCELED) Once, On Wed05/24/25 at 0505, For 1 occurrence And Saline lock IV (CANCELED) Once, On Kirstin 05/24/25 at 0505, For 1 occurrence And sodium chloride 0.9 % flush 10 mLJump to med 10 mL, Intravenous, Every 12 hours, First dose on Kirstin 05/24/25 at 0510, Until Discontinued, Routine And sodium chloride 0.9 % flush 10 mLJump to med 10 mL, Intravenous, As needed, Starting on Wed05/24/25 at 0504, Until Wed05/31/25 at 1649, Routine, line care Group 2: glucose (Glutose) 40 % oral gel 15-30 grams of glucoseJump to med 15-30 grams of glucose, Sublingual, Every 15 min PRN, Starting on Wed05/24/25 at 0506, Until Wed05/31/25 at 164, Routine, low blood sugar, per Hypoglycemia Prevention and Treatment protocol Or dextrose 10 % (D10W) bolus 125 mLJump to med 125 mL, Intravenous, Every 15 min PRN, Starting on Kirstin 05/24/25 at 0506, Until Wed05/31/25 at 164, Administer over 15 Minutes, Routine, low blood sugar BG 51-89 mg/dL Or dextrose 10 % (D10W) bolus 250 mLJump to med 250 mL, Intravenous, Every 15 min PRN, Starting on Wed05/24/25 at 0506, Until Wed05/31/25 at 1649, Administer over 15 Minutes, Routine, PRN low blood sugar BG =/<50 mg/dL Or glucagon (human recombinant) injection 1 mgJump to med 1 mg, Intramuscular, Every 15 min PRN, Starting on Kirstin 05/24/25 at 0506, Until Kirstin 05/31/25 at 1649, Routine, low blood sugar per Hypoglycemia Prevention and Treatment protocol Group 3: ondansetron ODT (Zofran-ODT) disintegrating tablet 4 mgJump to med 4 mg, Oral, Every 6 hours PRN, Starting on Kirstin 05/24/25 at 0507, Until Kirstin 05/31/25 at 1649, Routine, nausea, vomiting Or ondansetron (Zofran) injection 4 mgJump to med 4 mg, Intravenous, Every 6 hours PRN, Starting on Kirstin 05/24/25 at 0507, Until Kirstin 05/31/25 at 1649, Routine, vomiting, nausea Or ondansetron (Zofran) 4 MG/5ML solution 4 mgJump to med 4 mg, Oral, Every 6 hours PRN, Starting on Kirstin 05/24/25 at 0507, Until Kirstin 05/31/25 at 1649, Routine, nausea, vomiting documented in this encounter Additional Health Concerns Active Problems Noted Date Diagnosed Date Appointments 06/04/2025 Symptom management 06/04/2025 Med Adherence 06/04/2025 Infection Onset Date Last Indicated Resolved Time C. difficile Rule-Out 05/24/2025 05/24/20252024 3:50 PM EST Gastrointestinal Rule-Out 05/24/2025 05/24/2025 3:51 PM EST Gastrointestinal Rule-Out 05/25/2025 05/25/2025 7:50 PM EST Assessment Noted Time PHQ-9 Depression Total Score: 18 04/03/ 025 7:06 AM EDT A fall risk assessment has been complete d for the patient 05/22/2025 12:43 PM EST A Body Mass Index follow-up plan has been documented for the patient 05/31/2025 1:22 PM EST documented as of this encounter Care Teams Trading Specialist Relationship Specialty Start Date End Date Trevor Rolon DO [address] [place] [address] PCP - General 11/22/20 06/03/25 Mc Grant [address] [facility] [address] [place] [address] Referring Physician Gastroenterology 02/21/24 El Dye APRN [id number] Referring Physician Gastroenterology 03/21/25 Cely Diaz, RN VALUE-BASED TRANSFORMATION PROGRAM [place], [place] Life Sciences Manager 05/28/25 documented as of this encounter
--- OUTSIDE RECORDS SUMMARY | 2025-06-13 10:54 | XMS_ITS | Encounter Summary ---
Author Organization [facility] Address [address] [place] [address] Care Team Providers Care Customer Support Analyst Name Role Phone Mc Grant Unavailable [phone] El Agarwal APRN Unavailable [phone] Cely Diaz RN Unavailable Unavailable Jesus Luis MD Primary Care Provider + [phone] Encounter Details Date Type Department Care Team (Latest Contact Info) Description 06/13/2025 10:54 AM EST - 06/13/2025 11:59 PM [facility] Hospital Encounter [facility] Breast Care Center [facility] [address] [id number] Encounter for screening mammogram for malignant neoplasm of breast Discharge Disposition: Home or Self Care Social [...] any time in the past 12 m [facility], were you homeless or living in a alf (including now)? No 06/04/2025 [facility] Utilities Answer Date Recorded In the past [...] pain). 03/24/2022 ergocalciferol (Vitamin D-2) 1.25 MG (54046 UT) capsule Take 1 capsule by mouth [...] times a day. 240 capsule 2 05/18/2025 bumetanide (Bumex) 1 MG tablet Take 2 [...] Description 07/17/2025 8:45 AM EST Clinical Support [facility] [place] [address] [place] [address] 07/17/2025 10:30 AM EST Office Visit [facility] [address] [place] [id number] Nj Johns MD [address] [place] [address] documented as of this encounter Goals Goal Patient Goal Type Associated Problems Recent Progress Patient-Stated? Author Patient will attend follow-up appointment with transplant Care Plan Appointments No Cely Diaz RN Patient will monitor daily weights Care Plan Symptom management Not on track( 2:41 PM EST) Cely Patricia RN Note: Regular weight 165 lb 06/04/2025: Weight 193.4 Patient weighed 208 lb while inpatient Patient will monitor glucose levels Care Plan Symptom management On track( 2:42 PM EST) No Cely Diaz RN Consistently take Medications as Prescribed- rifaximin Care Plan Med Adherence Not on track( 3:04 PM EST) Cely Patricia RN Patient to follow-up with medication assistance program,[facility] Care Plan Med Adherence Not on track( 3:04 PM EST) No Cely Diaz RN documented as of this encounter Procedures Procedure Name Priority Date/Time Associated Diagnosis Comments MAMMOGRAPHY BREAST SCREENING TOMOSYNTHESIS BILATERAL Routine 06/13/2025 12:12 PM EST Encounter for screening mammogram for malignant neoplasm of breast documented in this encounter Results * Mammography Breast Screening Tomosynthesis Bilateral (06/13/2025 12:12 PM EST) Anatomical Region Laterality Modality Breast Bilateral Mammography Impressions 06/17/2025 4:46 PM EST No mammographic evidence of malignancy. BI-RADS CATEGORY: Overall: 1 - Negative RECOMMENDATION: - Routine Screening Mammogram in 1 Year. Patient Lifetime Risk Score of Breast Malignancy: A risk score has not been calculated for this patient. This risk assessment is calculated using the Carmen Risk Assessment model which may underestimate the lifetime risk of breast malignancy. COMMUNICATION: Computer-aided detection (CAD) and tomosynthesis were utilized by the radiologist in the interpretation of this examination. The results and recommendations will be sent to the patient in a printed lay language version of the imaging report. Narrative 06/17/2025 4:46 PM EST EXAM: Mammography Breast Screening with Tomosynthesis REASON FOR EXAM: Screening Mammogram HISTORY: Patient is 54 y.o. Family medical history includes breast cancer in mother's sister. Surgical and procedural history include hysterectomy, 2012 (Hysterectomy from [facility]) and breast surgery (Breast Surgery Reduction Procedure Bilateral from [facility]). COMPARISON STUDIES: Compared to: 04/17/2015 MAMMOGRAPHY BREAST SCREENING TOMOSYNTHESIS BILATERAL at [facility] 02/15/2024 MAMMOGRAPHY BREAST SCREENING TOMOSYNTHESIS BILATERAL at [facility] BREAST COMPOSITION: The breasts are almost entirely fatty. FINDINGS: There are no suspicious masses, calcifications, or areas of architectural distortion. us Kaela Khan MD IMG BI PROCEDURES Final R esult documented in this encounter Visit Diagnoses Diagnosis Encounter for screening mammogram for malignant neoplasm of breast documented in this encounter Additional Health Concerns Active Problems Noted Date Diagnosed Date Appointments 06/04/2025 Symptom management 06/04/2025 Med Adherence 06/04/2025 Assessment Noted Time PHQ-9 Depression Total Score: 18 025 7:06 AM EDT A fall risk assessment has been complete d for the patient 05/22/2025 12:43 PM EST A Body Mass Index follow-up plan has been documented for the patient 05/31/2025 1:22 PM EST documented as of this encounter Care Teams Customer Support Analyst Relationship Specialty [place] [id number] PCP - General 06/04/25 Mc Grant Referring Physician Gastroenterology 02/21/24 El Agarwal APRN [id number] Referring Physician Gastroenterology 03/21/25 Cely Diaz, RN VALUE-BASED TRANSFORMATION PROGRAM [place], [place] Lead Enterprise Architect 05/28/25 documented as of this encounter
--- OUTSIDE RECORDS SUMMARY | 2025-06-25 13:30 | XMS_ITS | Encounter Summary ---
Author Organization [facility] Address [address] [place] [address] Care Team Providers Care Director Of Manufacturing Operations Name Role Phone Mc Grant Unavailable [phone] El Agarwal APRN Unavailable [phone] Cely Diaz RN Unavailable Unavailable Jesus Luis MD Primary Care Provider + [phone] Reason for Visit * Reason Comments OP Infusion * Episode Based Medications (Routine) - Closed Specialty Diagnoses / Procedures Referred By Contac t Referred To Contact Diagnoses KENDRA (acute kidney injury) End-stage liver disease (CMS/HCC) Procedures MS ALBUMIN (HUMAN), 25%, 50ML Nj Johns MD [address] [facility] [address] [place] [address] Phone: tel: fax: Nj Johns MD [address] [facility] [address] [place] [address] Phone: tel: fax: Referral ID Status Reason Start Date Expiration Date Visits Re quested Visits Authorized [id number] Closed 06/22/2025 12/22/2026 1 1 Encounter Details Date Type Department Care Team (Latest Contact Info) Description 06/25/2025 1:30 PM EST - 06/25/2025 4:57 PM EST Hospital Encounter [facility] [address] [place] [address] Hypervolemia, unspecified hypervolemia type (Primary Dx); End-stage liver disease (CMS/HCC); KENDRA (acute kidney injury); 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 No 06/26/2025 Within the last year, have y ou been humiliated or emotionally abused in other ways by your partner or ex-partner? No Within the last year, have y ou been kicked, hit, slapped, or otherwise physically hurt by your partner or ex-partner? No 06/26/2025 Within the last year, have y ou been raped or forced to have any kind of sexual activity by your partner or ex-partner? No 06/26/2025 Hunger Vital Sign Answer Date Recorded Within the past 12 months, y ou worried that your food would run out before you got the money to buy more. Never true 06/26/20 25 Within the past 12 months, t he food you bought just didn't last and you didn't have money to get more. Never true 06/26/2025 PRAPARE - Transportation Answer Date Re corded In the past 12 months, has l ack of transportation kept you from medical appointments or from getting medications? No 06/11 In the past 12 months, has l ack of transportation kept you from meetings, work, or from getting things needed for daily living? No 06/26/2025 Housing Stability Vital Sign Answer Matt e Recorded In the last 12 months, was t here a time when you were not able to pay the mortgage or rent on time? No 06/26/2025 In the past 12 months, how m any times have you moved where you were living? 0 06/26/2025 At any time in the past 12 m [facility], were you homeless or living in a penitentiary (including now)? No 06/26/2025 [facility] Utilities Answer Date Recorded In the past 12 months has th e electric, gas, oil, or water company threatened to shut off services in your home? No 06/26/2025 Comments Unknown Sex and Gender Information Value Date Recorded Sex Assigned at Female 03/11/2021 7:37 PM EDT Legal Sex Female 8:49 PM EDT Gender Identity Female 03/11/2021 7:37 PM EDT Sexual Orientation Not on file documented as of this encounter Last Filed Vital Signs Vital Sign Reading Time Taken Comments Blood Pressure 82/46 06/25/2025 3:44 PM EST Pulse 110 06/25/2025 3:44 PM EST Temperature 36.4 C (97.6 F) 06/25/2025 1:47 PM EST Respiratory Rate 16 06/25/2025 1:47 PM EST Oxygen Saturation 100% 06/25/2025 3:17 PM EST Inhaled Oxygen Concentration - - Weight 95.2 kg (209 lb 14.1 oz) 06/25/2025 1:47 PM EST Height 162.6 cm (5' 4 ) 06/25/2025 1:47 PM EST Body Mass Index 36.03 06/25/2025 1:47 PM EST documented in this encounter Functional Status * Temp src Answer Date of Assessment Author Oral 06/25/2025 1:47 PM EST Mo Damon N * Resp Answer Date of Assessment Author 16 06/25/2025 1:47 PM EST Mo Damon N * Height Answer Date of Assessment Author 64 06/25/2025 1:47 PM EST Mo Damon N * Weight Answer Date of Assessment Author 3358.05 06/25/2025 1:47 PM EST Gross, Br ookelyn N * BMI (Calculated) Answer Date of Assessment Author 36.1 06/25/2025 1:47 PM EST Gross, Br ookelyn N * Percent Excess Weight Loss Answer Date of Assessment Author 0 06/25/2025 1:47 PM EST Gross, Br ookelyn N * Total Weight Change Percent Answer Date of Assessment Author 2222 06/25/2025 1:47 PM EST Gross, Br ookelyn N * Weight Change Since Preop Answer Date of Assessment Author 95.18 06/25/2025 1:47 PM EST Gross, Br ookelyn N * Initial Excess Weight Answer Date of Assessment Author -54.43 06/25/2025 1:47 PM EST Gross, Br ookelyn N * IBW in lbs (Bariatric) Answer Date of Assessment Author 120 06/25/2025 1:47 PM EST Gross, Br ookelyn N * Weight Change Since Last Visit Answer Date of Assessment Author 95.18 06/25/2025 1:47 PM EST Gross, Br ookelyn N * IBW in kg (Bariatric) Answer Date of Assessment Author 54.43 06/25/2025 1:47 PM EST Gross, Br ookelyn N * Percent of IBW Answer Date of Assessment Author 6,169.48 06/25/2025 1:47 PM EST Gross, Br ookelyn N * EBW (kg) Answer Date of Assessment Author 3,356.51 06/25/2025 1:47 PM EST Gross, Br ookelyn N * EBW (lbs) Answer Date of Assessment Author 3,350.55 06/25/2025 1:47 PM EST Gross, Br ookelyn N * HEENT Question Answer Date of Assessment Author HEENT ([facility]) WDL 06/25/2025 1:58 PM EST Alexandr Dominguez, RN * Cardiac Question Answer Date of Assessment Author Cardiac ([facility]) X 06/25/2025 1:58 PM EST Alexandr Reddy RN * Gastrointestinal Question Answer Date of Assessment Author Gastrointestinal ([facility]) X 06/25/2025 1:58 PM Aelxandr Kelly, RN * Genitourinary Question Answer Date of Assessment Author Genitourinary ([facility]) X 06/25/2025 1:58 PM Alexandr Hylton, CORWIN * Musculoskeletal Question Answer Date of Assessment Author Musculoskeletal ([facility]) X 06/25/2025 1:58 PM EST Alexandr Alberto, CORWIN * Integumentary Question Answer Date of Assessment Author Integumentary ([facility]) X 06/25/2025 1:58 PM Alexandr Hylton, CORWIN * Neurological Question Answer Date of Assessment Author Neuro ([facility]) X 06/25/2025 1:58 PM EST Alexandr Dominguez, CORWIN * Psychosocial Question Answer Date of Assessment Author Psychosocial ([facility]) WDL 06/25/2025 1:58 PM EST Alexandr Alberto, CORWIN * Respiratory (WD) Answer Date of Assessment Author X 06/25/2025 1:58 PM EST Eloisa Alberto RN * Weight Change 24 hrs Answer Date of Assessment Author 2.031 06/25/2025 1:47 PM EST Gross, Br ookelyn N * Vital Signs Question Answer Date of Assessment Author BP 82/46 06/25/2025 3:44 PM EST Inter face, Doc Flowsheet In Temp 97.6 06/25/2025 1:47 PM EST Inter face, Doc Flowsheet In Pulse 110 06/25/2025 3:44 PM EST Inter face, Doc Flowsheet In MAP (mmHg) 58 06/25/2025 3:44 PM EST Inter face, Doc Flowsheet In * Oxygen Therapy Question Answer Date of Assessment Author SpO2 100 06/25/2025 3:17 PM EST Inter face, Doc Flowsheet In * BSA (Calculated - sq m) Answer Date of Assessment Author 2.07 06/25/2025 1:47 PM EST Gross, Br ookelyn N * BMI (Calculated) Answer Date of Assessment Author 36.01 06/25/2025 1:47 PM EST Gross, Br ookelyn N * BP Location Answer Date of Assessment Author Right arm 06/25/2025 1:47 PM EST Gross, Br ookelyn N * IBW/kg (Calculated) Male Answer Date of Assessment Author 59.2 06/25/2025 1:47 PM EST Gross, Br ookelyn N * IBW/kg (Calculated) Female Answer Date of Assessment Author 54.7 06/25/2025 1:47 PM EST Gross, Br ookelyn N * IBW/kg (Calculated) Answer Date of Assessment Author 54.7 06/25/2025 1:47 PM EST Gross, Br ookelyn N * Weight in (lb) to have BMI = 25 Answer Date of Assessment Author 145.3 06/25/2025 1:47 PM EST Gross, Br ookelyn N * BMI (Calculated) Answer Date of Assessment Author 36.1 06/25/2025 1:47 PM EST Gross, Br ookelyn N * Percent Excess Weight Loss Answer Date of Assessment Author 0 06/25/2025 1:47 PM EST Gross, Br ookelyn N * Weight Change Since Preop Answer Date of Assessment Author 95.2 06/25/2025 1:47 PM EST Gross, Br ookelyn N * Initial Excess Weight Answer Date of Assessment Author -54.43 06/25/2025 1:47 PM EST Gross, Br ookelyn N * IBW in kg (Bariatric) Answer Date of Assessment Author 54.43 06/25/2025 1:47 PM EST Gross, Br ookelyn N * IBW in lb (Bariatric) Answer Date of Assessment Author 120 06/25/2025 1:47 PM EST Gross, Br ookelyn N * Weight Change Since Last Visit Answer Date of Assessment Author 95.2 06/25/2025 1:47 PM EST Gross, Br ookelyn N * Percent of IBW Answer Date of Assessment Author 174.9 06/25/2025 1:47 PM EST Gross, Br ookelyn N * EBW (kg) Answer Date of Assessment Author 40.75 06/25/2025 1:47 PM EST Gross, Br ookelyn N * EBW (lb) Answer Date of Assessment Author 89.88 06/25/2025 1:47 PM EST Gross, Br ookelyn N * Difference in Weight Since Last Visit Answer Date of Assessment Author 2.03 06/25/2025 1:47 PM EST Gross, Br ookelyn N * Temp (in Celsius) for [place] Answer Date of Assessment Author 36.4 06/25/2025 1:47 PM EST Gross, Br ookelyn N * IBW/kg (Calculated) Answer Date of Assessment Author 54.7 06/25/2025 1:47 PM EST Gross, Br ookelyn N * Adult Low Range Vt 6mL/kg Answer Date of Assessment Author 328.2 06/25/2025 1:47 PM EST Gross, Br ookelyn N * Adult Moderate Range Vt 8mL/kg Answer Date of Assessment Author 437.6 06/25/2025 1:47 PM EST Gross, Br ookelyn N * Adult High Range Vt 10mL/kg Answer Date of Assessment Author 547 06/25/2025 1:47 PM EST Gross, Br ookelyn N * Pain Score Answer Date of Assessment Author 3 06/25/2025 1:58 PM EST Gross, Br ookelyn N * Patient Position Answer Date of Assessment Author Sitting 06/25/2025 1:47 PM EST Gross, Br ookelyn N * Pain Screening/Additional Assessments Question Answer Date of Assessment Author Pain Screening/Assessments Pain Screening 06/25/2025 1 :58 PM EST Gross, Brookelyn N * Pain Screening Answer Date of Assessment Author 0-10 06/25/2025 1:58 PM EST Gross, Br ookelyn N * Temp src Answer Date of Assessment Author Oral 06/25/2025 1:47 PM EST Gross, Br ookelyn N * Resp Answer Date of Assessment Author 16 06/25/2025 1:47 PM EST Gross, Br ookelyn N * Height Answer Date of Assessment Author 64 06/25/2025 1:47 PM EST Gross, Br ookelyn N * Weight Answer Date of Assessment Author 3358.05 06/25/2025 1:47 PM EST Gross, Br ookelyn N * HEENT Question Answer Date of Assessment Author HEENT ([facility]) WDL 06/25/2025 1:58 PM EST Carmeli Alexandr shaikh, RN * Cardiac Question Answer Date of Assessment Author Cardiac ([facility]) X 06/25/2025 1:58 PM EST Carmel inAlexandr, CORWIN * Gastrointestinal Question Answer Date of Assessment Author Gastrointestinal ([facility]) X 06/25/2025 1:58 PM Alexandr Kelly, RN * Genitourinary Question Answer Date of Assessment Author Genitourinary ([facility]) X 06/25/2025 1:58 PM ES T Alexandr Alberto, RN * Musculoskeletal Question Answer Date of Assessment Author Musculoskeletal ([facility]) X 06/25/2025 1:58 PM EST Alexandr Alberto, CORWIN * Integumentary Question Answer Date of Assessment Author Integumentary ([facility]) X 06/25/2025 1:58 PM ES T Alexandr Alberto, CORWIN * Neurological Question Answer Date of Assessment Author Neuro ([facility]) X 06/25/2025 1:58 PM EST Alexandr Dominguez, RN * Psychosocial Question Answer Date of Assessment Author Psychosocial ([facility]) WDL 06/25/2025 1:58 PM EST Alexandr Alberto, CORWIN * Vital Signs Question Answer Date of Assessment Author BP 82/46 06/25/2025 3:44 PM EST Inter face, Doc Flowsheet In Temp 97.6 06/25/2025 1:47 PM EST Inter face, Doc Flowsheet In Pulse 110 06/25/2025 3:44 PM EST Inter face, Doc Flowsheet In MAP (mmHg) 58 06/25/2025 3:44 PM EST Inter face, Doc Flowsheet In * Oxygen Therapy Question Answer Date of Assessment Author SpO2 100 06/25/2025 3:17 PM EST Inter face, Doc Flowsheet In * BSA (Calculated - sq m) Answer Date of Assessment Author 2.07 06/25/2025 1:47 PM EST Gross, Br ookelyn N * BMI (Calculated) Answer Date of Assessment Author 36.01 06/25/2025 1:47 PM EST Gross, Br ookelyn N * BP Location Answer Date of Assessment Author Right arm 06/25/2025 1:47 PM EST Gross, Br ookelyn N * Weight in (lb) to have BMI = 25 Answer Date of Assessment Author 145.3 06/25/2025 1:47 PM EST Gross, Br ookelyn N * Pain Score Answer Date of Assessment Author 3 06/25/2025 1:58 PM EST Gross, Br ookelyn N * Patient Position Answer Date of Assessment Author Sitting 06/25/2025 1:47 PM EST Gross, Br ookelyn N documented as of this encounter Mental Status * Temp src Answer Entry Date Author Oral 06/25/2025 1:47 PM EST Gross, Br ookelyn N * Resp Answer Entry Date Author 16 06/25/2025 1:47 PM EST Gross, Br ookelyn N * Height Answer Entry Date Author 64 06/25/2025 1:47 PM EST Gross, Br ookelyn N * Weight Answer Entry Date Author 3358.05 06/25/2025 1:47 PM EST Gross, Br ookelyn N * BMI (Calculated) Answer Entry Date Author 36.1 06/25/2025 1:47 PM EST Gross, Br ookelyn N * Percent Excess Weight Loss Answer Entry Date Author 0 06/25/2025 1:47 PM EST Gross, B rookelyn N * Total Weight Change Percent Answer Entry Date Author 2222 06/25/2025 1:47 PM EST Gross, Br ookelyn N * Weight Change Since Preop Answer Entry Date Author 95.18 06/25/2025 1:47 PM EST Gross, Br ookelyn N * Initial Excess Weight Answer Entry Date Author -54.43 06/25/2025 1:47 PM EST Gross, Br ookelyn N * IBW in lbs (Bariatric) Answer Entry Date Author 120 06/25/2025 1:47 PM EST Gross, Br ookelyn N * Weight Change Since Last Visit Answer Entry Date Author 95.18 06/25/2025 1:47 PM EST Gross, Br ookelyn N * IBW in kg (Bariatric) Answer Entry Date Author 54.43 06/25/2025 1:47 PM EST Gross, Br ookelyn N * Percent of IBW Answer Entry Date Author 6,169.48 06/25/2025 1:47 PM EST Gross, Br ookelyn N * EBW (kg) Answer Entry Date Author 3,356.51 06/25/2025 1:47 PM EST Gross, Br ookelyn N * EBW (lbs) Answer Entry Date Author 3,350.55 06/25/2025 1:47 PM EST Gross, Br ookelyn N * HEENT Question Answer Entry Date Author HEENT ([facility]) WDL 06/25/2025 1:58 PM EST Alexandr Dominguez RN * Cardiac Question Answer Entry Date Author Cardiac ([facility]) X 06/25/2025 1:58 PM EST Alexandr Reddy RN * Gastrointestinal Question Answer Entry Date Author Gastrointestinal ([facility]) X 06/25/2025 1:58 PM EST Alexandr Alberto, CORWIN * Genitourinary Question Answer Entry Date Author Genitourinary ([facility]) X 06/25/2025 1:58 PM ES Alexandr Simmons, CORWIN * Musculoskeletal Question Answer Entry Date Author Musculoskeletal ([facility]) X 06/25/2025 1:58 PM EST Alexandr Alberto, CORWIN * Integumentary Question Answer Entry Date Author Integumentary ([facility]) X 06/25/2025 1:58 PM ES Alexandr Simmons, CORWIN * Neurological Question Answer Entry Date Author Neuro ([facility]) X 06/25/2025 1:58 PM EST Alexandr Dominguez, CORWIN * Psychosocial Question Answer Entry Date Author Psychosocial ([facility]) WDL 06/25/2025 1:58 PM EST Alexandr Alberto, CORWIN * Respiratory ([facility]) Answer Entry Date Author X 06/25/2025 1:58 PM EST Eloisa Alberto RN * Weight Change 24 hrs Answer Entry Date Author 2.031 06/25/2025 1:47 PM EST Gross, Br ookelyn N * Vital Signs Question Answer Entry Date Author BP 82/46 06/25/2025 3:44 PM EST Inter face, Doc Flowsheet In Temp 97.6 06/25/2025 1:47 PM EST Inter face, Doc Flowsheet In Pulse 110 06/25/2025 3:44 PM EST Inter face, Doc Flowsheet In MAP (mmHg) 58 06/25/2025 3:44 PM EST Inter face, Doc Flowsheet In * Oxygen Therapy Question Answer Entry Date Author SpO2 100 06/25/2025 3:17 PM EST Inter face, Doc Flowsheet In * BSA (Calculated - sq m) Answer Entry Date Author 2.07 06/25/2025 1:47 PM EST Gross, Br ookelyn N * BMI (Calculated) Answer Entry Date Author 36.01 06/25/2025 1:47 PM EST Gross, Br ookelyn N * BP Location Answer Entry Date Author Right arm 06/25/2025 1:47 PM EST Gross, Br ookelyn N * IBW/kg (Calculated) Male Answer Entry Date Author 59.2 06/25/2025 1:47 PM EST Gross, Br ookelyn N * IBW/kg (Calculated) Female Answer Entry Date Author 54.7 06/25/2025 1:47 PM EST Gross, Br ookelyn N * IBW/kg (Calculated) Answer Entry Date Author 54.7 06/25/2025 1:47 PM EST Gross, Br ookelyn N * Restart Pain Assessment Timer Answer Entry Date Author Yes 06/25/2025 1:58 PM EST Gross, Br ookelyn N * Weight in (lb) to have BMI = 25 Answer Entry Date Author 145.3 06/25/2025 1:47 PM EST Gross, Br ookelyn N * BMI (Calculated) Answer Entry Date Author 36.1 06/25/2025 1:47 PM EST Gross, Br ookelyn N * Percent Excess Weight Loss Answer Entry Date Author 0 06/25/2025 1:47 PM EST Gross, Br ookelyn N * Weight Change Since Preop Answer Entry Date Author 95.2 06/25/2025 1:47 PM EST Gross, Br ookelyn N * Initial Excess Weight Answer Entry Date Author -54.43 06/25/2025 1:47 PM EST Gross, Br ookelyn N * IBW in kg (Bariatric) Answer Entry Date Author 54.43 06/25/2025 1:47 PM EST Gross, Br ookelyn N * IBW in lb (Bariatric) Answer Entry Date Author 120 06/25/2025 1:47 PM EST Gross, Br ookelyn N * Weight Change Since Last Visit Answer Entry Date Author 95.2 06/25/2025 1:47 PM EST Gross, Br ookelyn N * Percent of IBW Answer Entry Date Author 174.9 06/25/2025 1:47 PM EST Gross, Br ookelyn N * EBW (kg) Answer Entry Date Author 40.75 06/25/2025 1:47 PM EST Gross, Br ookelyn N * EBW (lb) Answer Entry Date Author 89.88 06/25/2025 1:47 PM EST Gross, Br ookelyn N * Difference in Weight Since Last Visit Answer Entry Date Author 2.03 06/25/2025 1:47 PM EST Gross, Br ookelyn N * Temp (in Celsius) for [place] Answer Entry Date Author 36.4 06/25/2025 1:47 PM EST Gross, Br ookelyn N * IBW/kg (Calculated) Answer Entry Date Author 54.7 06/25/2025 1:47 PM EST Gross, Br ookelyn N * Adult Low Range Vt 6mL/kg Answer Entry Date Author 328.2 06/25/2025 1:47 PM EST Gross, Br ookelyn N * Adult Moderate Range Vt 8mL/kg Answer Entry Date Author 437.6 06/25/2025 1:47 PM EST Gross, Br ookelyn N * Adult High Range Vt 10mL/kg Answer Entry Date Author 547 06/25/2025 1:47 PM EST Gross, Br ookelyn N * Pain Score Answer Entry Date Author 3 06/25/2025 1:58 PM EST Gross, Br ookelyn N * BP Cuff Size Answer Entry Date Author Adult 06/25/2025 1:47 PM EST Gross, Br ookelyn N * Patient Position Answer Entry Date Author Sitting 06/25/2025 1:47 PM EST Gross, Br ookelyn N * Pain Screening Answer Entry Date Author 0-10 06/25/2025 1:58 PM EST Gross, Br ookelyn N documented in this encounter Medications at Time of Discharge acetaminophen (Tylenol) 500 MG tablet Take 1 tablet by mouth every 8 hours as needed for pain. 90 tablet 07/02/2025 bumetanide (Bumex) 2 MG tablet Take 1 tablet by mouth 2 times a day. 60 tablet 07/02/2025 busPIRone (Buspar) 7.5 MG tablet Take 1 [...] pain). 03/24/2022 ergocalciferol (Vitamin D-2) 1.25 MG (87466 UT) capsule Take 1 capsule by mouth 1 time per week. Take on Wednesday04/09/2020 FeroSul 325 (65 Fe) MG tablet Take 1 tablet by mouth every other day. 07/02/2025 hydrOXYzine pamoate (Vistaril) 25 MG capsule Take 1 capsule by mouth as needed for itching. insulin aspart (NovoLOG) 100 UNIT/ML injection vial [...] lactulose (Chronulac) 10 GM/15ML oral solution Take 45 mL by mouth 3 times a day. You may increase it to 30 gm ( 45 ml ) 6 times daily if you have constipation or slowly decrease it to 10 gm ( 15 ml ) three times daily if you have diarrhea. 4050 mL 07/02/2025 lansoprazole (Prevacid) [address] capsule Take 1 capsule by mouth daily. 08/18/2022 magnesium oxide (Mag-Ox) 400 (240 Mg) MG tablet Take 1 tablet by mouth 2 times a day. 60 tablet 07/02/2025 6 metoprolol succinate XL (Toprol-XL) 50 MG 24 hr tablet Take 0.5 tablets by mouth every morning. Do not crush or chew. 07/02/2025 ondansetron (Zofran) 8 MG tablet Take 1 tablet by mouth every 8 hours as needed for nausea or vomiting. oxyCODONE (Roxicodone) 5 MG immediate release tablet Take 1.5 tablets by mouth 3 times a day. 02/12/2025 Ozempic, 1 MG/DOSE, 4 MG/3ML solution pen-injector Inject 1 mg under the skin 1 time per week. 09/19/2024 pregabalin (Lyrica) 25 MG capsule Take 1 capsule by mouth nightly. 07/02/2025 promethazine (Phenergan) 25 MG tablet Take 1 tablet by mouth every 6 hours as needed for nausea or vomiting. Rimegepant Sulfate (NURTEC PO) Take 1 tablet by mouth as needed. rOPINIRole (Requip) 1 MG tablet Take 2 tablets by mouth nightly. 07/02/2025 6 spironolactone (Aldactone) 100 MG tablet Take 1 tablet by mouth daily. May take extra pill at 3 pm with bumex if you gain wt > 3 lbs 30 each 07/02/2025 6 valACYclovir (Valtrex) 500 MG tablet Take 1 tablet by mouth every morning. zinc sulfate (Zincate) 220 (50 Zn) MG capsuleIndicatio ns:End-stage liver disease (CMS/HCC) Take 1 capsule by mouth 2 times a day. 240 capsule 2 05/18/2025 6 bumetanide (Bumex) 1 MG tablet Take 2 tablets by mouth 2 times a day. 120 tablet 05/31/2025 5 bumetanide (Bumex) 1 MG tablet Take 2 tablets by mouth 2 times a day. 120 tablet 07/02/2025 5 FeroSul 325 (65 Fe) MG tablet [...] morning. Do not crush or chew. 5 pregabalin (Lyrica) 25 MG capsule Take [...] encounter Miscellaneous Notes * Clinician Note - Alexandr Alberto RN - 06/25/2025 2:00 PM EST During treatment patient experienced hypotension. Albumin infusion partially completed. Total volume infused 270.93. RN discussed current subjective and objective patient information with patient, Nj Johns* (ordering provider), and Juana Aviles* ([employer]). Will refer to Emergency Department for further evaluation. Patient refused transport via EMS and chose to go with a family member. Report called to [facility] ED at 1552. Most recent vital signs are Vitals: 06/25/25 1544 BP: (!) 82/46 Pulse: 110 Resp: Temp: SpO2: Patient discharged 1550. * Progress Notes - Juana Aviles APRN - 06/25/2025 2:00 PM EST [facility] Note I was physically on-site during the entirety of the infusion, and was available to manage acute infusion reactions as needed. Juana Aviles APRN * Lew Dumont - Alexandr Alberto RN - 06/25/2025 1:44 PM EST Images from the original note were not included. [id number] Furosemide Injection WHY is this medicine prescribed? Furosemide injection is used in adults and children who cannot take medications by mouth or in emergency situations to treat edema (excess fluid held in body tissues) caused by various medical problems. Furosemide is in a class of medications called diuretics ('water pills'). It works by causing the kidneys to get rid of unneeded water and salt from the body. HOW should this medicine be used? Furosemide injection comes as a solution (liquid) to be injected into a muscle or into a vein by a doctor or nurse in a medical office or hospital. Furosemide injection (Furoscix??) comes in an on-body injector with a prefilled cartridge to be injected just under the skin at home. If furosemide injection is given intramuscularly or intravenously to treat edema caused by various medical problems, it is usually given as a single dose or it may be given once or twice a day. Your dosing schedule will depend on your condition and on how you respond to treatment. Furosemide injection (Furoscix??) is usually given in an on-body delivery system to be injected just under the skin over 5 hours. During this time, you will need to limit your activity and limit bending movements. You should notice an increased need to urinate starting about 1 hour after the injection begins. This may last up to 8 hours. Make sure that you have access to a bathroom for up to 8 hours after beginning the injection using the on-body injector. Your doctor may decide to allow you or a caregiver to perform the injections using the on-body delivery system at home. Your healthcare provider will show you how to prepare and perform the injections at home. Ask your pharmacist or doctor for a copy of the chemicals distiller's instructions for use information for the patient. Be sure to ask your doctor or pharmacist if you have any questions about howto use the on-body delivery system. Check the cartridge to be sure that the expiration date printed on the cartridge has not passed. Look closely at the liquid in the cartridge. The liquid should be clear to slightly yellow and should not be cloudy or discolored. Do not drop the on-body injector or cartridge or allow the injector to get wet. After you apply the on-body injector, do not shower, bathe, swim, or do activities that will make you sweat when you are wearing the on-body injector. Call your pharmacist if there are any problems with the package or the cartridge and do not inject the medication. You can apply the on-body injector on the abdomen (stomach area) on either side of your navel in a flat, hairless area above the belt line and below the rib cage. Choose a different spot each time you apply the on-body injector. Do not apply the on-body injector in an area directly under a belt or waistband. Be sure that the skin in the area where you plan to apply the on-body injector is clean, dry, and healthy. Do not apply the on-body injector to skin that is red, irritated, or not intact. Also do not apply the on-body injector to skin that you have recently treated with creams, lotions, oils, or other skin products. Dispose of used on-body delivery systems in a puncture-resistant container. Talk to your doctor or pharmacist about how to dispose of the puncture-resistant container. Ask your pharmacist or doctor for a copy of the chemicals distiller's information for the patient. Are there OTHER USES for this medicine? This medication may be prescribed for other uses; ask your doctor or pharmacist for more information. What SPECIAL PRECAUTIONS should I follow? Before receiving furosemide injection, ? tell your doctor or pharmacist if you are allergic to this drug, any part of this drug, or any other drugs, foods or substances. Tell your doctor or pharmacist about the allergy and what symptoms you had. Also, if you are using the furosemide on-body injector, tell your doctor if you are allergicto any adhesives. ? tell your doctor and pharmacist what prescription and nonprescription medications, vitamins, nutritional supplements, and herbal products you are taking or plan to take. Your doctor may need to change the doses of your medications or monitor you carefully for side effects. ? tell your doctor if you have kidney or liver disease. Your doctor may not want you to receive furosemide injection. ? tell your doctor if you have or have ever had any condition that stops your bladder from emptyingcompletely, an electrolyte imbalance in your blood, including low levels of potassium in your blood, hypertension, diabetes, gout, or systemic lupus erythematosus (SLE; a chronic inflammatory condition). ? tell your doctor if you are , plan to become . If you become while receiving furosemide injection, call your doctor. ? tell your doctor if you are breast-feeding. Furosemide may affect your milk supply. ? if you are having surgery, tell the doctor that you are using furosemide injection. ? plan to avoid unnecessary or prolonged exposure to sunlight and to wear protective clothing, sunglasses, and sunscreen. Furosemide may make your skin sensitive to sunlight. ? you should know that furosemide may cause dizziness, lightheadedness, and fainting when you get up too quickly from a lying position. This is more common when you first start using furosemide. To avoid this problem, get out of bed slowly, resting your feet on the floor for a few minutes before standing up. Alcohol can add to these side effects. ? if you are using the furosemide on-body injector, tell your doctor if you will be having a magnetic resonance imaging exam (MRI; a medical test that uses powerful magnets to take pictures of the inside of the body). What SPECIAL DIETARY instructions should I follow? If your doctor prescribes a low-salt or low-sodium diet, or to eat or drink increased amounts of potassium-rich foods (e.g., bananas, prunes, raisins, and orange juice) in your diet, follow these instructions carefully. What SIDE EFFECTS can this medicine cause? Some side effects can be serious. If you experience any of these symptoms, call your doctor immediately: ? decreased urination; dry mouth; thirst; nausea; vomiting; weakness; drowsiness; confusion; musclepain or cramps; or rapid or pounding heartbeats ? ringing in the ears, loss of hearing ? ongoing pain that begins in the stomach area, but may spread to the back ? rash, hives, itching, blisters or peeling skin, or difficulty breathing or swallowing ? yellowing of the skin or eyes, light-colored stools, dark urine, pain in the upper right part of the stomach Furosemide may cause other side effects. Call your doctor if you have any unusual problems while receiving this medication. If you experience a serious side effect, you or your doctor may send a report to the Food and Drug Administration's (FDA) MedWatch Adverse Event Reporting program online (https://www.fda.gov/Safety/MedWatch) or by phone ( ). What should I know about STORAGE and DISPOSAL of this medication? Keep the on-body delivery system in the carton it came in, tightly closed, and out of reach of children. Store it at room temperature and protect from light. Do not refrigerate or freeze. Keep all medication out of sight and reach of children as many containers are not child resistant. Always lock safety caps. Place the medication in a safe location - one that is up and away and out of their sight and reach. https://www.upandaway.org Dispose of unneeded medications in a way so that pets, children, and other people cannot take them.Do not flush this medication down the toilet. Use a medicine take-back program. Talk to your pharmacist about take-back programs in your community. Visit the FDA's Safe Disposal of Medicines website ( https://goo.gl/c4Rm4p) for more information. What should I do in case of OVERDOSE? In case of overdose, call the poison control helpline at . Information is also available online at https://www.poisonhelp.org/help. If the victim has collapsed, had a seizure, has trouble breathing, or can't be awakened, immediately call emergency services at 911. Symptoms of overdose may include: ? extreme thirst ? dry mouth ? dizziness ? confusion ? extreme tiredness ? vomiting ? stomach cramps What OTHER INFORMATION should I know? Keep all appointments with your doctor and the laboratory. Your doctor may order certain lab tests to check your body's response to furosemide. Keep a written list of all of the prescription and nonprescription ([id number]) medicines vitamins, minerals, and dietary supplements you are taking. Bring this list with you each time you visit a doctor or if you are admitted to the hospital. You should carry the list with you in case of neela gencies. Brand Name(s): ? Furoscix?? ? Lasix? also available generically ?? This branded product is no longer on the market. Generic alternatives may be available. This report on medications is for your information only, and is not considered individual patient advice. Because of the changing nature of drug information, please consult your physician or pharmacist about specific clinical use. The [employer] represents that the information provided hereunder was formulated with a reasonable standard of care, and in conformity with professional standards in the field. [employer] makes no representations or warranties, express or implied, including, but not limited to, any implied warranty of merchantability and/or fitness for a particular purpose, with respect to such information and specifically disclaims all such warranties. Users are advised that decisions regarding drug therapy are complex medical decisions requiring the independent, informed decision of an appropriate health complex care nurse practitioner, and the information is provided for informational purposes only. The entire monograph for a drug should be reviewed for a thorough understanding of the drug's actions, uses and side effects. The [employer] does not endorse or recommend the use of any drug.The information is not a substitute for medical care. AHFS?? Patient Medication Information?. ?? Copyright, 2023. [employer]??, [address], [address], [place], [place]. All Rights Reserved. Duplication for commercial use must be authorized by [facility]. Selected Revisions: October 24, 2024. AHFS?? Patient Medication Information?. ?? Copyright, 2024 documented in this encounter Plan of Treatment Upcoming Encounters Date Type Department Care Team (Late st Contact Info) Description 07/17/2025 8:45 AM EST Clinical Support [facility] [address] [place] [address] 07/17/2025 10:30 AM EST Office Visit [facility] [place] [address] [place] [address] Nj Johns MD [address] [place] [address] documented as of this encounter Goals Goal Patient Goal Type Associated Problems Recent Progress Patient-Stated? Author Patient will attend follow-up appointment with transplant Care Plan Appointments Cely Patricia RN Patient will monitor daily weights Care Plan Symptom management Not on track( 025 2:41 PM EST) Cely Patricia RN Note: Regular weight 165 lb 06/04/2025: Weight 193.4 Patient weighed 208 lb while inpatient Patient will monitor glucose levels Care Plan Symptom management On track( 2:42 PM EST) No Cely Diaz RN Consistently take Medications as Prescribed- rifaximin Care Plan Med Adherence Not on track( 3:04 PM EST) No Cely Diaz RN Patient to follow-up with medication assistance program,[facility] Care Plan Med Adherence Not on track( 3:04 PM EST) No Cely Diaz RN documented as of this encounter Visit Diagnoses Diagnosis Hypervolemia, unspecified hypervolemia type- Primary End-stage liver disease (CMS/HCC) Other sequelae of chronic liver disease KENDRA (acute kidney injury) 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) Other chronic nonalcoholic liver disease Other cirrhosis of liver (CMS/HCC) documented in this encounter Administered Medications Inactive Administered Medications - up to 3 most recent administrations Medication Order MAR Action Action Date Dose Rate Site albumin human 25 % infusion 100 g 100 g, Intravenous, Once, 1 dose, On 06/25/25 at 1415, RoutineIndications:End-stage liver disease (CMS/HCC),KENDRA (acute kidney injury),Hypervolemia, unspecified hypervolemia type New Bag 06/25/2025 2:16 PM EST 100 g documented in this encounter Additional Health Concerns Active Problems Noted Date Diagnosed Date Appointments 06/04/2025 Symptom management 06/04/2025 Med Adherence 06/04/2025 Infection Onset Date Last Indicated Resolved Time COVID-19 Rule-Out 06/25/2025 06/25/2025 06/25/2025 5:34 PM EST Assessment Noted Time PHQ-9 Depression Total Score: 18 7:06 AM EDT A fall risk assessment has been complete d for the patient 06/25/2025 4:02 PM EST A Body Mass Index follow-up plan has been documented for the patient 07/02/2025 12:40 PM EST documented as of this encounter Care Teams Director Of Manufacturing Operations Relationship Specialty [place] [address] PCP - General 06/04/25 Mc Grant Referring Physician Gastroenterology 02/21/24 El Agarwal APRN [id number] Referring Physician Gastroenterology 03/21/25 Cely Diaz, RN [employer]ED TRANSFORMATION PROGRAM [place], [place] [employer] 05/28/25 documented as of this encounter
--- OUTSIDE RECORDS SUMMARY | 2025-06-25 16:58 | XMS_ITS | Encounter Summary ---
Author Organization [facility] Address [address] [place] [address] Care Team Providers Care General Foreman Name Role Phone Mc Grant Unavailable [phone] lE Agarwal APRN Unavailable [phone] Cely Diaz RN Unavailable Unavailable Jesus Luis MD Primary Care Provider + [phone] Reason for Referral * Transplant (Routine) - Pending Review Specialty Diagnoses / Procedures Referred By Contact Referred To Contact Transplant Surgery / Transplant Diagnoses Abnormal electrocardiogram (ECG) (EKG) Alison Burns MD [address] [place] [address] Phone: tel:[phone] fax:[phone] [facility] [address] [address] Phone: tel: fax: Referral ID Status Reason Start Date Expiration Date Visits Requested Visits Authorized [id number] Pending Review Specialty Services Required 5 12/26/2026 999 999 Reason for Visit * Auth/Cert (Routine) Specialty Diagnoses / Procedures Referred By Contac t Referred To Contact Diagnoses Encephalopathy, hepatic (CMS/HCC) End-stage liver disease (CMS/HCC) KENDRA (acute kidney injury) Hypotension, unspecified hypotension type Cirrhosis of liver without ascites, unspecified hepatic cirrhosis type Adrian Branham MD [address] [place] [address] Phone: tel: fax: [facility] [address] [place] [address] Phone: tel: Referral ID Status Reason Start Date Expiration Date Visits Re quested Visits Authorized [id number] 1 1 Encounter Details Date Type Department Care Team (Latest Contact Info) Description 06/25/2025 4:58 PM EST - 07/02/2025 1:30 PM [facility] Hospital Encounter [facility] [address] [place] [address] Breanna Soares MD [address] [place] [address] Adrian Branham MD [address] [place] [address] Alison Burns MD [address] [place] [address] Sandi Judd MD [address] [place] [address] Hypotension, unspecified hypotension type (Primary Dx); Cirrhosis of liver without ascites, unspecified hepatic cirrhosis type; KENDRA (acute kidney injury); Encephalopathy, hepatic (CMS/HCC); End-stage liver disease (CMS/HCC); Abnormal electrocardiogram (ECG) (EKG) Discharge Disposition: Home or Self Care Social [...] any time in the [facility] were you homeless or living in a care home (including now)? No 06/26/2025 [facility] Utilities Answer Date Recorded In the [...] Sign Reading Time Taken Comments Blood Pressure 106/68 07/02/2025 12:10 PM EST Pulse 85 07/02/2025 12:10 PM EST Temperature 36.7 C (98.1 F) 07/02/2025 12:10 PM EST Respiratory Rate 16 07/02/2025 12:10 PM EST Oxygen Saturation 100% 07/02/2025 12:10 PM EST Inhaled Oxygen Concentration - - Weight 92.7 kg (204 lb 4.8 oz) 07/02/2025 8:00 A M EST Height 162.6 cm (5' 4.02 ) 07/02/2025 8:00 AM ES T Body Mass Index 35.05 07/02/2025 8:00 AM EST documented in this encounter Functional Status * HEENT Question Answer Date of Assessment Author JEFFRY (RIGOL) X 07/02/2025 8:00 AM EST Nela Emerson RN R Eye Sclera yellow;Mildly impaired vision 07/02/2025 8:00 AM EST Nela Lebron RN L Eye Sclera yellow;Mildly impaired vision 07/02/2025 8:00 AM EST Nela Lebron RN Head and Face Symmetrical 07/01/2025 4:[address] Ray [address] RN Neck Tenderness;Other (Comment) 07/02/2025 8:0 0 AM EST Nela Lebron RN * BMI (Calculated) Answer Date of Assessment Author 35.1 07/02/2025 8:00 AM EST Jazmín Hwang RD * Percent Excess Weight Loss Answer Date of Assessment Author 0 07/02/2025 8:00 AM EST Jazmín Hwang RD * Total Weight Change Percent Answer Date of Assessment Author 222107/02/2025 8:00 AM EST Jazmín Hwang RD * Weight Change Since Preop Answer Date of Assessment Author 92.65 07/02/2025 8:00 AM EST Hwang, Jazmín G, RD * Initial Excess Weight Answer Date of Assessment Author -54.47 07/02/2025 8:00 AM EST Jazmín Hwang, RD * IBW in lbs (Bariatric) Answer Date of Assessment Author 120.08 07/02/2025 8:00 AM EST Jazmín Hwang G, RD * Weight Change Since Last Visit Answer Date of Assessment Author 0 07/02/2025 8:00 AM EST Jazmín Hwang, RD * IBW in kg (Bariatric) Answer Date of Assessment Author 54.47 07/02/2025 8:00 AM EST Jazmín Hwang, RD * Percent of IBW Answer Date of Assessment Author 6,001.1 07/02/2025 8:00 AM EST Jazmín Hwang, RD * EBW (kg) Answer Date of Assessment Author 3,267.26 07/02/2025 8:00 AM EST Jazmín Hwang, RD * EBW (lbs) Answer Date of Assessment Author 3,261.3 07/02/2025 8:00 AM EST Jazmín Hwang, RD * Progress Answer Date of Assessment Author improving 07/02/2025 10:14 AM EST Nela Lebron RN * Pain Management Interventions Answer Date of Assessment Author medication (see MAR) 07/02/2025 8:19 AM EST Nela Almendarez RN * Outcome Evaluation Answer Date of Assessment Author Patient will verbalize under standing of current POC by end of shift 07/02/2025 12:37 AM EST Estelle Nguyen RN * Safety Interventions Question Answer Date of Assessment Author Stabilization Measures legs elevated 07/02/2025 8:00 A M Nela Putnam RN * Gastrointestinal Care Question Answer Date of Assessment Author Nausea/Vomiting Interventions sips of clear liquids given 06/30/2025 8:00 AM Nela Putnam, RN Bowel Elimination Promotion adequate fluid intake promoted 07/02/2025 8:00 AM Nela Putnam, RN * Coping/Psychosocial Interventions Question Answer Date of Assessment Author Spiritual Activities Assistance affirmation provided 07/02/2025 8:00 AM Nela Putnam RN * Safety Promotion Question Answer Date of Assessment Author Infection Prevention environmental surveillance performed;personal protective equipment utilized;rest/sleep promoted;single patient room provided 07/02/2025 8:00 AM Nela Putnam RN * Safety Interventions Question Answer Date of Assessment Author Safety Precautions/Falls Reduction nonskid shoes/slippers when out of bed 06/26/2025 12:50 AM Edna Hicks RN All Alarms none present 06/26/2025 12:50 AM Edna Bolden RN * Musculoskeletal Interventions Question Answer Date of Assessment Author Fatigue Management frequent rest breaks encouraged 07/02/2025 8:00 AM Nela Putnam RN * Safety Promotion Question Answer Date of Assessment Author Medication Review/Management medications reviewed 07/02/2025 8:00 AM Nela Putnam RN * Coping/Psychosocial Interventions Question Answer Date of Assessment Author Supportive Measures relaxation technique s promoted;self-care encouraged 07/02/2025 8:00 AM Nela Putnam RN * Musculoskeletal Care Question Answer Date of Assessment Author Equipment Off:;daryl wrap 07/02/2025 8:00 AM Nela Chase RN * Basic Nutrition Care Question Answer Date of Assessment Author Nutrition Interventions meal set-up provided;meals from home/family encouraged;frequent small meals provided 07/02/2025 8:00 AM Nela Putnam RN * General Emergency Care CPG Interventions Question Answer Date of Assessment Author General (Individualize) patient will be free from falls while in the ed 06/26/2025 12:50 AM Edna Hicks RN Coping Interventions emotional support provided;reassurance provided 06/26/2025 12:50 AM Edna Hicks RN General Care Management calm environment promoted;monitored for physiologic status changes 06/26/2025 12:50 AM Edna Hicks, CORWIN * Wellbeing Promotion Question Answer Date of Assessment Author Complementary Therapy music therapy provided 8:00 AM Nela Putnam RN Trust Relationship/Rapport care explained;emotional support provided;questions answered;questions encouraged;thoughts/fee lings acknowledged 07/02/2025 8:00 AM Nela Putnam RN Diversional Activities smartphone;television 8:00 AM Nela Putnam RN Family/Support System Care self-care encouraged;support provided 06/30/2025 8:00 AM Nela Putnam RN * Sleep and Comfort Care Question Answer Date of Assessment Author Fever Reduction/Comfort Measures fluid intake increased;lightweight bedding;lightweight clothing 06/30/2025 8:00 AM Nela Putnam, RN * Nutrition Interventions Question Answer Date of Assessment Author Oral Nutrition Promotion physical activity promoted;rest periods promoted 07/02/2025 8:00 AM Nela Putnam RN Fluid/Electrolyte Management fluids restricted 07/02/2025 8:00 AM Nela Putnam, CORWIN * Discharge Needs Assessment Question Answer Date of Assessment Author Discharge Facility/Level of Care Needs 1-Home or Self Care 07/02/2025 12:32 PM Betzaida Vivar Equipment Needed After Discharge Cpap;walker, rollator 06/26/2025 8:02 AM Betzaida Vivar Equipment Currently Used at Home Cpap;walker, rollator 06/26/2025 8:02 AM Betzaida Vivar Current Outpatient/Agency/Support Group clinic(s);DME 06/26/2025 8:02 AM Betzaida Vivar Anticipated Changes Related to Illness none 06/26/2025 8:02 AM Betzaida Vivar Transportation Anticipated family or fri end will provide 06/26/2025 8:02 AM Betzaida Vivar Outpatient/Agency/Support Group Needs clinic(s);DME 06/26/2025 8:02 AM Betzaida Vivar Transportation Concerns none 06/26/2025 8:02 A M Betzaida Vivar Concerns to be Addressed discharge planning 06/26/2025 8:02 AM Betzaida Vivar Readmission Within the Last 30 Days unable to assess 06/26/2025 8:02 AM Betzaida Vivar Patient/Family Anticipated Services at Transition durable medical equipment 06/26/2025 8:02 AM Betzaida Vivar Patient/Family Anticipates Transition to home with family 06/26/2025 8:02 AM Betzaida Vivar * Daily Care Interventions Question Answer Date of Assessment Author Self-Care Promotion independence encouraged 07/02/2025 8:00 AM Nela Putnam RN * Pain/Comfort/Sleep Interventions Question Answer Date of Assessment Author Sleep/Rest Enhancement awakenings minimized;natural light exposure provided;regular sleep/rest pattern promoted;relaxation techniques promoted;room darkened 07/02/2025 8:00 AM Nela Putnam RN * Activity and Hygiene Care Question Answer Date of Assessment Author Perineal Care perineum cleansed;sk in sealant/barrier applied 07/01/2025 8:00 PM Estelle Hall RN * Cognitive Interventions Question Answer Date of Assessment Author Sensory Stimulation Regulation care clustered;lighting decreased;quiet environment promoted;television on 07/02/2025 8:00 AM Nela Putnam, CORWIN * Acuity/Destination Question Answer Date of Assessment Author Patient Acuity 2 06/25/2025 4:46 PM EST Ale Mora * Weight Change 24 hrs Answer Date of Assessment Author .37 07/02/2025 8:00 AM EST Jazmín Hwang RD * HLM Score Question Answer Date of Assessment Author [facility] Daily Mobility Goal 8 07/01/2025 8:0 0 PM Estelle Hall RN [facility] Daily Mobility Score 8 07/01/2025 8: 00 PM Estelle Hall RN * Plan of Care Reviewed With Answer Date of Assessment Author patient 07/02/2025 10:14 AM Nela Putnam RN * Pressure Injury Prevention (PIP) Interventions Question Answer Date of Assessment Author Pressure Reducing Devices Pillow 07/02/2025 8:00 AM Nela Putnam RN Bed Type Acute Care Bed 07/02/2025 8:00 AM Nela Mota RN * Behavioral Expectations Question Answer Date of Assessment Author Behavioral Expectations revi ewed with patient/guardian and family/partner in care? Yes 06/26/2025 1:21 AM EST Mariluz Dawson * Vital Signs Question Answer Date of Assessment Author BP 106/68 07/02/2025 12:10 PM EST Leandro vega, Doc Flowsheet In Temp 98.1 07/02/2025 12:10 PM EST Inte gary, Doc Flowsheet In Pulse 85 07/02/2025 12:10 PM EST Leandro vega, Doc Flowsheet In MAP (mmHg) 81 07/02/2025 12:10 PM EST Leandro vega, Doc Flowsheet In * Oxygen Therapy Question Answer Date of Assessment Author SpO2 100 07/02/2025 12:10 PM EST Leandro vega, Shon Flowsheet In * Pain 2 Question Answer Date of Assessment Author Pain Score 2 0 - No pain 07/01/2025 8:24 AM EST Aixa Haider, RN * Neurological Question Answer Date of Assessment Author L Pupil Reaction Brisk 06/26/2025 12:00 AM EST Edna Avila RN L Pupil Size (mm) 3 06/26/2025 12:00 AM EST Edna Avila RN R Pupil Reaction Brisk 06/26/2025 12:00 AM EST Edna Avila RN R Pupil Size (mm) 3 06/26/2025 12:00 AM EST Edna Avila RN Neuro ([facility]) WDL 06/26/2025 12:00 AM EST Edna Reeder RN R Pupil Shape Round 06/26/2025 12:00 AM EST Edna Delatorre RN L Pupil Shape Round 06/26/2025 12:00 AM EST Edna Delatorre RN * Cardiac Question Answer Date of Assessment Author Cardiac ([facility]) WDL 06/26/2025 12:00 AM EST Edna Delatorre RN * Gastrointestinal Question Answer Date of Assessment Author Passing Flatus Yes 07/01/2025 4:00 AM EST Estelle Peña RN Abdominal Tenderness Tenderness 07/02/2025 8:00 AM E Nela Holder RN Bowel Sounds (All Quadrants) Active 07/02/2025 8 :00 AM EST Nela Lebron RN Gastrointestinal (WDL) X 07/02/2025 8:00 AM EST Nela Lebron RN Abdomen Inspection Distended 07/02/2025 8:00 AM EST Nela Lebron RN GI Symptoms Bloating 06/26/2025 9:25 PM EST Mariluz Hazle * Peripheral Vascular Question Answer Date of Assessment Author Peripheral Vascular (WDL) X 07/02/2025 8:00 AM EST Nela Lebron RN Generalized Edema Non-pitting 07/02/2025 8:00 AM Nela Putnam RN RLE Edema +2 07/02/2025 8:00 AM EST Nela Emerson RN LLE Edema +2 07/02/2025 8:00 AM Nela Muhammad RN Capillary Refill Less than/equal to 2 seconds (All extremities) 07/01/2025 4:20 PM EST Aixa Bolanos RN Pulses R radial;L radial;R pedal;L pedal 07/01/2025 4:20 PM EST Aixa Bolanos RN Cyanosis None 07/01/2025 4:20 PM EST Aixa Haider RN Edema Generalized;Right lower extremity;Left lower extremity 07/02/2025 8:00 AM EST Nela Lebron RN * RUE Neurovascular Assessment Question Answer Date of Assessment Author R Radial Pulse +2 07/02/2025 8:00 AM EST Nela Alegria RN * LUE Neurovascular Assessment Question Answer Date of Assessment Author L Radial Pulse +2 07/02/2025 8:00 AM EST Nela Alegria RN * RLE Neurovascular Assessment Question Answer Date of Assessment Author R Pedal Pulse +1 07/02/2025 8:00 AM EST Nela Alegria RN * LLE Neurovascular Assessment Question Answer Date of Assessment Author L Pedal Pulse +1 07/02/2025 8:00 AM EST Nela Almendarez RN * Musculoskeletal Details Question Answer Date of Assessment Author Trunk Full movement 06/26/2025 12:00 AM EST Edna Delatorre RN Upper Back Pain with movement 06/26/2025 12:00 AM Edna Ruby RN Lower Back Pain with movement 06/26/2025 12:00 AM Edna Ruby RN * Musculoskeletal Question Answer Date of Assessment Author RUE Full movement 07/01/2025 4:[address] RN RLE Swelling;Weakness 07/02/2025 8:00 AM Nela Putnam RN LUE Full movement 07/01/2025 4:[address] RN LLE Swelling;Weakness 07/02/2025 8:00 AM Nela Putnam RN Musculoskeletal (WDL) X 07/02/2025 8:00 AM Nela Putnam RN Musculoskeletal Additional Assessments Yes 06/26/2025 12:00 AM EST Edna Avila RN * Urine Assessment Question Answer Date of Assessment Author Urinary Incontinence No 07/02/2025 4:00 AM Estelle Soliz RN * Psychosocial Question Answer Date of Assessment Author Psychological state Calm;Cooperative 07/02/2025 8:00 A M Nela Putnam RN Psychosocial (WDL) WDL 07/02/2025 8:00 AM EST Nela Lebron RN * Unmeasured Output Question Answer Date of Assessment Author Unmeasured Urine Occurrence 300 06/30/2025 5: 52 AM EST Sabrina Schmidt * Intake Question Answer Date of Assessment Author [address] 06/30/2025 3:50 PM EST Nela Emerson RN * Output (mL) Question Answer Date of Assessment Author Urine 500 07/02/2025 6:01 AM EST Oscar Chaney, CHAIN HOIST OPERATOR Urine Color Yellow/straw 07/02/2025 6:01 AM EST Oscar Chaney, CHAIN HOIST OPERATOR Urine Appearance Clear 07/02/2025 6:01 AM EST Oscar Lund, CHAIN HOIST OPERATOR Urine Odor No odor 06/27/2025 11:00 PM EST Danelle Carbone W, CHAIN HOIST OPERATOR * Trin[place] Fall Risk Question Answer Date of Assessment Author History of Falling, Immediat e or Within 3 Months 25 07/02/2025 8:00 AM Nela Putnam RN Secondary Diagnosis 15 07/02/2025 8:00 AM Nela Birch, it security consultant Aid 15 07/02/2025 8:00 AM EST Nela Alegria RN Intravenous Therapy/Heparin Lock 20 07/02/20 25 8:00 AM Nela Putnam RN Gait/Transferring 0 07/02/2025 8:00 AM Nela Putnam RN Mental Status 0 07/02/2025 8:00 AM Nela Chase RN Trin[place] Fall Risk Score 75 07/02/2025 8:00 AM Nela Putnam, RN * Mando Scale Question Answer Date of Assessment Author Sensory Perceptions 3 07/02/2025 8:00 AM Nela Birch RN Moisture 4 07/02/2025 8:00 AM EST Nela Emerson RN Activity 3 07/02/2025 8:00 AM EST Nela Emerson RN Mobility 3 07/02/2025 8:00 AM EST Nela Emerson RN Nutrition 3 07/02/2025 8:00 AM EST Nela Emerson RN Friction and Shear 3 07/02/2025 8:00 AM Nela Putnam RN Mando Scale Score 19 07/02/2025 8:00 AM EST Nela Lebron RN * BSA (Calculated - sq m) Answer Date of Assessment Author 2.05 07/02/2025 8:00 AM EST Jazmín Hwang RD * Pain Location Answer Date of Assessment Author Abdomen;Neck 07/02/2025 8:19 AM EST Aruna Lebron RN * Pain Orientation Answer Date of Assessment Author Right;Lower;Posterior 07/02/2025 8:19 AM EST Nela Alegria RN * Cardiac Question Answer Date of Assessment Author Cardiac (WDL) WDL 07/02/2025 8:00 AM EST Nela Almendarez RN Cardiac Regularity Regular 07/01/2025 4:20 PM EST Aixa Bolanos RN Heart Sounds S1, S2 07/01/2025 4:20 PM EST Aixa Haider RN Telemetry/Terrazzo Journeyman No 07/02/2025 8:00 AM EST Nela Lebron RN Jugular Venous Distention (JVD) No 4:20 PM EST Aixa Bolanos RN Cardiac Symptoms None 07/01/2025 8:00 PM EST F Estelle salter RN * Respiratory Question Answer Date of Assessment Author Bilateral Breath Sounds Clear;Diminished 07/02/2025 8: 00 AM EST Nela Lebron RN Respiratory Pattern Regular 07/02/2025 8:00 AM Nela Birch RN Chest Assessment Symmetrical;Chest expansion symmetrical 07/01/2025 4:20 PM EST Aixa Bolanos RN Cough Dry;Non-productive 06/27/2025 4:00 PM EST Tracy Quigley RN Respiratory (WDL) X 07/02/2025 8:00 AM EST Nela Lebron RN Respiratory Effort Unlabored 07/02/2025 8:00 AM Nela Putnam RN Respiratory Depth/Rhythm Regular 07/01/2025 8:19 AM EST Aixa Bolanos RN Dyspnea Occurrence At rest 07/01/2025 8:19 AM EST Aixa Bolanos RN * Vitals Question Answer Date of Assessment Author Temp src Oral 07/02/2025 12:10 PM EST Cest radames, Sara M, CHAIN HOIST OPERATOR Resp 16 07/02/2025 12:10 PM EST Cest radames, Sara M, CHAIN HOIST OPERATOR BP Location Left arm 07/02/2025 12:10 PM EST Cest radames, Sara M, CHAIN HOIST OPERATOR BP Method Automatic 07/02/2025 12:10 PM EST Cest radames, Sara M, CHAIN HOIST OPERATOR Weight Method Standing scale 07/02/2025 6:01 AM EST Oscar Stiles CNA Pulse Oximetry Type Intermittent 06/30/2025 7:28 AM Betzaida Ramos Patient Activity During SpO2 Measurement At rest 06/30/2025 7:28 AM Betzaida Cast Oxygen Therapy None 07/02/2025 12:10 PM EST Bianca staricKianaoe PRIYANKA Amin Patient Position Sitting 07/02/2025 12:10 PM EST Sara Lee CNA * Point of Care Tests Question Answer Date of Assessment Author Blood Glucose Meter 160 07/01/2025 8:17 PM Oscar Carver CNA Name of Nurse Notified of Blood Glucose Results (First and Last) enrico n 07/01/2025 8:17 PM Oscar Pearson C NA Glucose Sample Retrieved From Finger stick 07/01/2025 8:17 PM Osacr Pearson CNA * Percent Meals Eaten (%) Answer Date of Assessment Author 50 07/02/2025 12:30 PM Nela Putnam RN * Patient Information Question Answer Date of Assessment Author Primary Caregiver Self 06/26/2025 8:01 AM Betzaida Vivar Support System Immediate family 06/26/2025 8:01 AM Betzaida Vivar * Activities of Daily Living Question Answer Date of Assessment Author Functional Status Assistive device 06/26/2025 8:01 AM Betzaida Vivar Living Arrangements Family 06/26/2025 8:01 AM Betzaida Wilks Type of Residence Private residence 06/26/2025 8:01 AM Betzaida Vivar Current DME Provider Cpap with [employer] [facility]; rollator with [employer] 06/26/2025 8:01 AM Betzaida Vivar * Income Information Question Answer Date of Assessment Author Income Source Government aid 06/26/2025 8:01 AM Betzaida Kurtz * Advance Directives (For Healthcare) Question Answer Date of Assessment Author Advance Directive Patient does not hav e advance directive 06/26/2025 1:21 AM Mariluz Angela Pre-existing DNR/DNI Order No 06/26/2025 1:21 AM Mariluz Angela Information Provided on Healthcare Directives No 06/26/2025 1:21 AM Mariluz Angela Patient Requests Assistance No 06/26/2025 1:21 AM Mariluz Angela * Nutrition Screen Question Answer Date of Assessment Author Difficulty Chewing or Swallowing No 06/26/20 1:22 AM Mariluz Angela Burn, Pressure Injury, or No n-Healing Wound No 06/26/2025 1:22 AM Mariluz Angela Home Tube Feeding or Total P arenteral Nutrition (TPN) No 06/26/2025 1:22 AM Mariluz Angela Food allergy, Hinduism, or Cultural nutrition needs No 06/26/2025 1:22 AM Mariluz Angela * Pain Descriptors Answer Date of Assessment Author Aching;Discomfort 07/02/2025 8:19 AM Nela Putnam RN * Pain Onset Answer Date of Assessment Author Ongoing 07/02/2025 8:19 AM Aruna Putnam RN * Pain Frequency Answer Date of Assessment Author Intermittent 07/02/2025 8:19 AM Aruna Putnam RN * Patient's Stated Pain Goal Answer Date of Assessment Author No pain 07/02/2025 8:19 AM Aruna Putnam RN * Trauma/Abuse Assessment Question Answer Date of Assessment Author Physical Abuse Denies 06/26/2025 1:21 AM EST Mariluz Lancaster Verbal Abuse Denies 06/26/2025 1:21 AM EST Mariulz Hazel * Values/Beliefs Question Answer Date of Assessment Author Cultural Requests During Hospitalization none 06/26/2025 1:21 AM EST Mariluz Dawson Spiritual Requests During Hospitalization none 06/26/2025 1:21 AM EST Mariluz Dawson Unable to assess No 06/26/2025 1:21 AM JUAREZ Mariluz Barrios * Genitourinary Question Answer Date of Assessment Author Genitourinary (WDL) WDL 07/02/2025 8:00 AM Nela Birch RN * Neurological Question Answer Date of Assessment Author Level of Consciousness Alert 4:20 PM Aixa Sabillon RN Orientation Level Oriented X4 07/01/2025 4:2 0 PM Aixa Sabillon RN Cognition Follows commands 07/01/2025 4:20 PM Aixa Sabillon RN Speech Clear 07/01/2025 4:20 PM Aixa Sabillon RN Neuro ([facility]) WD 07/02/2025 8:00 AM Nela Putnam RN Swallow Able to swallow aan lilia ds and liquids without difficulty 07/01/2025 4:20 PM Aixa Sabillon RN R Hand Grasp Moderate 07/01/2025 4:20 PM Aixa Sabillon RN L Hand Grasp Moderate 07/01/2025 4:20 PM Aixa Sabillon RN R Foot Dorsiflexion Moderate 07/01/2025 4 :20 PM Aixa Sabillon RN L Foot Dorsiflexion Moderate 07/01/2025 4 :20 PM Aixa Sabillon RN R Foot Plantar Flexion Moderate 4:20 PM Aixa Sabillon RN L Foot Plantar Flexion Moderate 4:20 PM Aixa Sabillon RN Neuro Symptoms None 07/01/2025 4:20 PM Aixa Sabillon RN Hand Grasp/Motor Function/Sensation Assessment Grasp;Dorsiflexion;Soham ntar flexion 07/01/2025 4:20 PM Aixa Sabillon RN * Safe Environment Question Answer Date of Assessment Author 37-Pin Connection [Bed and Wall] Yes 07/02/2025 1:00 PM EST Cestaric, Sara M , CHAIN HOIST OPERATOR Arm Bands On ID 07/02/2025 1:00 PM EST Cesta chris, Sara M, CHAIN HOIST OPERATOR Side Rails/Bed Safety 2/4 07/02/2025 1:00 PM EST Cestaric, Sara M, CHAIN HOIST OPERATOR NonSkid Footwear On;Patient in bed 07/02/2025 1:00 PM EST Cestaric, Sara M, CHAIN HOIST OPERATOR The Patient's Environment is Safe Yes 07/02/2025 1:00 PM EST Cestaric Sara M , CHAIN HOIST OPERATOR Head of Bed Angle 30 06/28/2025 8:00 PM EST Meche Coreas S, RN Bed Foot Left Rail Up State No 07/02/2025 5:00 AM EST Estelle Nguyen, RN Bed Head Right Rail Up State Yes 07/02/2025 5:00 AM EST Estelle Nguyen, RN Bed Head Left Rail Up State Yes 07/02/2025 5:00 AM EST Estelle Nguyen, RN Bed Foot Right Rail Up State No 07/02/2025 5:00 AM EST Estelle Nguyen, RN Bed Exit System Activate Status No 07/02/2025 5:00 AM EST Estelle Nguyen, RN Bed Brake State Yes 07/02/2025 5:00 AM EST Estelle Cruz, RN Bed Low Height State Yes 07/02/2025 5:00 AM E Estelle Benavidez, RN Chair Exit System Activate Status No 07/02/2025 1:00 PM EST MeletaricKianaoe M, CHAIN HOIST OPERATOR * Fall Risk Interventions Question Answer Date of Assessment Author Safety Promotion/Fall Prevention activity supervised;clutter-free environment maintained;fall prevention program maintained;nonskid shoes/slippers when out of bed;room organization consistent;safety round/check completed 07/02/2025 1:00 PM EST MeletaKiana perezoe Eloisa, CHAIN HOIST OPERATOR Enhanced Safety Measures bed alarm set;education provided 07/02/2025 8:00 AM EST Nela Lebron, RN Toilet Every 2 Hours-In Advance of Need Yes 07/02/2025 1:00 PM EST CestaricKianaoe M, CHAIN HOIST OPERATOR Hourly Visual Checks Awake;In bed 07/02/2025 1:00 PM Sara Rodriguez CHAIN HOIST OPERATOR Room Door Open Yes 07/02/2025 1:00 PM EST Sara Lee CHAIN HOIST OPERATOR Gait Belt Used For Transfers Not applicable 07/01/2025 8:00 PM Estelle Hall RN Fall Bundle Components Call light within reach;Personal belongings within reach;Overbed table within reach;Bed in lowest position;Bed wheels locked;Non-skid footwear on if up in chair or ambulating 07/02/2025 1:00 PM Sara Rodriguez CNA * Mobility Question Answer Date of Assessment Author Range of Motion active ROM (range of motion) encouraged 07/02/2025 8:00 AM Nela Putnam RN Activity Management up ad michelle 07/02/2025 1 :00 PM Sara Rodriguez CNA Activity Assistance Provided independent 07/02/2025 1:00 PM Sara Rodriguez CNA Assistive Device Utilized cane 07/02/2025 8:00 AM Nela Putnam RN Body Position weight shifting 07/02/2025 1:00 PM Sara Rodriguez CNA VTE Prevention/Management SCDs (sequential compression devices) off 07/02/2025 8:00 AM Nela Putnam RN Head of Bed (HOB) Positioning HOB elevated 07/02/2025 1:00 PM Sara Rodriguez CNA Distance Ambulated (ft) 100 07/01/20 7:49 AM Aixa Sabillon RN Ambulation Response Tolerated well 07/02/2025 1 :00 PM Sara Rodriguez CNA Heels/Feet Foot of bed elevated 07/02/2025 1:00 PM Sara Rodriguez CHAIN HOIST OPERATOR Reason for Removing Anti-Embolism Device Ambulating 07/02/2025 4:00 AM Estelle Hall RN Positioning Frequency Able to turn self 07/02/20 1:00 PM Sara Rodriguez CHAIN HOIST OPERATOR * Hygiene Question Answer Date of Assessment Author Bathing/Skin Care dressed/undressed;brennan ir washed;linen changed;moisturizer applied;shower 07/02/2025 6:03 AM Oscar Pearson CNA Skin Protection incontinence pads utilized;skin sealant/moisture barrier applied 07/02/2025 8:00 AM Nela Putnam RN Oral Care other (see comments) 07/01/2025 8:00 PM Estelle Hall RN Oral Care (Yes/No) No 07/01/2025 8: 00 PM Estelle Hall RN Hernandez Care Castile Wipes Used Perineum cleansed with soap/water prior 06/30/2025 11:00 AM Betzaida Cast * Precautions Question Answer Date of Assessment Author Isolation Precautions precautions maintained 8:00 AM Nela Putnam RN Precautions Fall risk;Environmen sarina surveillance 07/02/2025 1:00 PM Sara Rodriguez CNA * Family/Significant Other Communication Question Answer Date of Assessment Author Family/Significant Other Update Visiting 8:00 AM Tracy Weston RN * Telemetry Details Question Answer Date of Assessment Author Contour Grinder On No 07/02/2025 1:00 PM Sara Parish CNA * Comfort and Environment Interventions Question Answer Date of Assessment Author Warm [place] Applied 06/30/2025 11:00 AM Betzaida Ramirez Comfort Other (Comment) 07/01/2025 9:00 PM Estelle Saunders RN Additional Comfort/Environmental Interventions Warm blanket 06/30/2025 11:00 AM Betzaida Cast * Miscellaneous Devices Question Answer Date of Assessment Author Daryl Wrap Care Skin assessed 07/01/2025 8:00 PM Estelle Adam RN Daryl Wrap Removed 07/01/2025 8:00 PM Estelle Hall RN * Safety Equipment at Bedside Question Answer Date of Assessment Author Standard Bedside Safety Ambu bags in hallway;Oxygen available and working;Suction available, setup and working 07/02/2025 1:00 PM Sara Rodriguez CNA Additional Bedside Safety Bed in locked and low position;Clutter free environment 07/02/2025 1:00 PM EST Cestaric, Sara M, CHAIN HOIST OPERATOR * Saline Flush (mL) Answer Date of Assessment Author 10 06/29/2025 12:26 AM EST Damon Nguyen RN * IBW/kg (Calculated) Male Answer Date of Assessment Author 59.24 07/02/2025 8:00 AM EST Jazmín Hwang RD * IBW/kg (Calculated) Female Answer Date of Assessment Author 54.74 07/02/2025 8:00 AM EST Jazmín Hwang RD * Consults Question Answer Date of Assessment Author Integrative Medicine Consult Needed No 06/26 1:21 AM EST Samir, Mariluz Pastoral Care Consult Needed No 06/26/2025 1 :21 AM EST Samir, Mariluz Degreaser Operator Consult Needed No 06/26/2025 1:21 AM EST [place] Mar[place] * Therapy Consults Question Answer Date of Assessment Author PT Evaluation Needed 2 06/26/2025 1:[address] Samir, Mariluz OT Evaluation Needed 2 06/26/2025 1:[address] Samir, Mariluz TANDEM MILL OPERATOR Evaluation Needed 2 06/26/2025 1:20 AM EST [place] Mariluz * Assistive Devices Question Answer Date of Assessment Author Assistive Devices Cane 06/26/2025 1:20 AM EST [place] Mar[place]uz * End of Shift Review Question Answer Date of Assessment Author Shift Review Complete Yes 07/02/2025 7:00 AM Nela Putnam RN Shift Report Received From CORWIN Mccabe 07/02/2025 7:00 AM Nela Putnam RN Shift Report Given To Nela Huston RN 07/02/2025 7:0 0 AM Nela Putnam RN * Hourly Rounding Question Answer Date of Assessment Author Hourly Rounding Complete Per Guideline Yes 07/02/2025 1:00 PM EST Cestaric, Sara M , CHAIN HOIST OPERATOR * Patient Violence Risk Assessment Question Answer Date of Assessment Author History of Violence: In the past 12 hours has the PATIENT exhibited any of the following? None 07/02/2025 8:00 AM Nela Putnam RN Potential for Violence: In the past 12 hours has the PATIENT exhibited any of the following? None 07/02/2025 8:00 AM Nela Putnam RN Risk No identified risk 07/02/2025 8:00 AM Nela Putnam RN History of Violence: In the past 12 hours has a PARTNER IN CARE of the patient exhibited any of the following? None 07/02/2025 8:00 AM Nela Putnam RN * Malnutrition Identification Question Answer Date of Assessment Author Malnutrition Identified No 07/02/2025 12:10 PM EST Jaiden Jazmín G, RD * Physical Exam Performed On Question Answer Date of Assessment Author Temples (muscles) None 07/02/2025 12: 10 PM EST Hwang, Jazmín G, RD Clavicle (muscle) None 07/02/2025 12: 10 PM EST Hwang, Jazmín G, RD Shoulder (muscle) None 07/02/2025 12: 10 PM EST Hwang, Jazmín G, RD Interosseous (muscle) None 07/02/2025 12:10 PM EST Jaiden Jazmín G, RD Orbital (fat) None 07/02/2025 12:10 PM EST Hwang, Jazmín G, RD Triceps (fat) None 07/02/2025 12:10 PM EST Hwang, Jazmín G, RD Energy Intake reported decreased appetite recently 07/02/2025 12:10 PM EST Hwang, Jazmín G, RD Weight Loss weight gain 2/2 fluid 07/02/2025 12:10 PM EST Hwang, Jazmín G, RD * Mobility Question Answer Date of Assessment Author Ambulation Stand by 07/02/2025 8:00 AM EST Nela Emerson RN * Airway Question Answer Date of Assessment Author Airway (WDL) WD 06/25/2025 5:49 PM EST Misty Ortiz RN * Breathing Question Answer Date of Assessment Author Breathing (WD) [facility] 06/25/2025 5:49 PM EST Misty Harrison, RN * Circulation Question Answer Date of Assessment Author Circulation (WDL) WD 06/25/2025 5:49 PM EST Misty Ortiz, RN * Disability Question Answer Date of Assessment Author Disability (WDL) WD 06/25/2025 5:49 PM EST Misty Christine, RN * Restart Vitals Timer Answer Date of Assessment Author Yes 07/02/2025 12:10 PM EST Sara Lee CNA * IBW/kg (Calculated) Answer Date of Assessment Author 54.74 07/02/2025 8:00 AM EST Jazmín Hwang RD * STOP-Bang Questionnaire Question Answer Date of Assessment Author Do you snore loudly? 1 06/26/2025 2:[address] Samir Mariluz Do you often feel tired or f atigued after your sleep? 1 06/26/2025 2:00 AM EST Samir Mariluz Has anyone ever observed you stop breathing in your sleep? 1 06/26/2025 2:00 AM EST Cecelia Dawson la Do you have or are you being treated for high blood pressure? 1 06/26/2025 2:00 AM EST [place], Mariluz Is BMI greater than 35 kg/m2? 1=Yes 06/26/2025 2:00 AM EST [place], Mariluz Age older than 50 years old? 1=Yes 06/26/2025 2 :00 AM EST Samir, Mariluz Is your neck circumference g reater than 17 inches (Male) or 16 inches (Female)? 0 06/26/2025 2:[address] Samir, Mariluz Gender - Male 0=No 06/26/2025 2:00 AM EST Mataruna ock Mariluz STOP-Bang Total Score 6 06/26/2025 2:00 AM EST [place], Mariluz Recent BMI (Calculated) 36.4 06/26/2025 2:00 A M EST [place], Mariluz * Pneumococcal Vaccine Screen - Year Round Question Answer Date of Assessment Author Have you ever had a pneumoni a vaccination? No 06/26/2025 4:31 AM EST Xiomara Dawsonyla * Calculated C-SSRS Risk Score (Lifetime/Recent) Answer Date of Assessment Author No Risk Indicated 07/02/2025 8:00 AM Nela Putnam, RN * Michael Coma Scale Question Answer Date of Assessment Author Best Eye Response Spontaneous 07/02/2025 8:00 AM EST Nela Lebron RN Best Verbal Response Oriented 07/02/2025 8:00 AM Nela Escamilla RN Best Motor Response Follows commands 07/02/2025 8:00 A M Nela Putnam RN Michael Coma Scale Score 15 07/02/2025 8:00 AM Nela Putnam RN * Care Handoff Question Answer Date of Assessment Author Handoff Received From Edna OLIVIA 06/26/2025 12:58 AM Edna Hicks RN * Learning Assessment Question Answer Date of Assessment Author Education Level High school 06/25/2025 7:20 PM Misty Sharp RN Factors that Impact Ability to Learn None 06/25/2025 7:20 PM Misty Palomares R N Cultural Considerations None 06/25/2025 7:20 P M Misty Palomaers RN Hinduism Considerations None 06/25/2025 7:20 PM Misty Palomares RN * Abuse Screen Question Answer Date of Assessment Author Are you or have you been thr eatened or abused physically, emotionally, or sexually by a partner, spouse, or family member? No 06/25/2025 7:20 PM Misty Palomares R N * VARUN 1 Fall Risk Factor Assessment Question Answer Date of Assessment Author Presented to ED because of fall 0 5:49 PM Misty Palomares RN Age > 70 0 06/25/2025 5:49 PM Misty Palomares RN Intoxicated with alcohol or substance confusion 0 06/25/2025 5:49 PM Misty Palomares R N Ambulates or transfers with assistive devices or assist 0 06/25/2025 5:49 PM Nikko Palomares RN Unable to ambulate or transfer 0 06/25/2025 5:49 PM Misty Palomares RN Nursing judgement 0 06/25/2025 5:49 PM Misty Palomares RN KINDER 1 Fall Risk Score 0 06/25/2025 5:49 PM Misty Palomares RN * Douglas Suicide Severity Rating Scale Question Answer Date of Assessment Author Is patient awake, alert, and able to answer questions appropriately? Yes 06/25/2025 5:49 PM EST Ortiz, Misty N, RN * Patient Belongings Placed in Locker Question Answer Date of Assessment Author Belongings at Bedside Retained by bruce bella and/or family/legal u.s. representative who assumes responsibility 06/25/2025 7:20 PM Misty Palomares RN * Weight in (lb) to have BMI = 25 Answer Date of Assessment Author 145.4 07/02/2025 8:00 AM EST Jazmín Hwang, RD * BMI (Calculated) Answer Date of Assessment Author 35.1 07/02/2025 8:00 AM EST Jazmín Hwang, RD * Percent Excess Weight Loss Answer Date of Assessment Author 0 07/02/2025 8:00 AM EST Jazmín Hwang, RD * Weight Change Since Preop Answer Date of Assessment Author 92.67 07/02/2025 8:00 AM EST Jazmín Hwang, RD * Initial Excess Weight Answer Date of Assessment Author -54.47 07/02/2025 8:00 AM Jazmín Collier, RD * IBW in kg (Bariatric) Answer Date of Assessment Author 54.47 07/02/2025 8:00 AM EST Jazmín Hwang, RD * IBW in lb (Bariatric) Answer Date of Assessment Author 120.08 07/02/2025 8:00 AM EST Jazmín Hwang, RD * Weight Change Since Last Visit Answer Date of Assessment Author 0 07/02/2025 8:00 AM Jazmín Collier, RD * Percent of IBW Answer Date of Assessment Author 170.14 07/02/2025 8:00 AM Jazmín Collier, RD * EBW (kg) Answer Date of Assessment Author 38.18 07/02/2025 8:00 AM EST Jazmín Hwang, RD * EBW (lb) Answer Date of Assessment Author 84.22 07/02/2025 8:00 AM Jazmín Collier, RD * Difference in Weight Since Last Visit Answer Date of Assessment Author 0 07/02/2025 8:00 AM Jazmín Collier, RD * Housing Circumstances-Z Codes Question Answer Date of Assessment Author Housing Circumstances (select all that apply) Low Income (101-300% Federal Poverty Guidlines) - Z596 06/26/2025 8:01 AM EST Betzaida Bardales * Pain Type Answer Date of Assessment Author Acute pain 07/02/2025 8:19 AM EST Aruna Lebron RN * Clinical Progression Answer Date of Assessment Author Gradually improving 07/02/2025 8:19 AM EST Nela Emerson RN * Anthropometrics Question Answer Date of Assessment Author Height 64.016 07/02/2025 8:00 AM EST Jzamín Connor, RD Weight 3268.8 07/02/2025 8:00 AM EST Jazmín Connor G, RD BMI (Calculated) 35.05 07/02/2025 8:00 AM EST Jazmín Cueva RD * Temp (in Celsius) for TAZLINA IV Answer Date of Assessment Author 36.7 07/02/2025 12:10 PM EST Kiana Leeoe Eloisa CHAIN HOIST OPERATOR * Pain Assessment Question Answer Date of Assessment Author Patient is asleep Yes, assume pain is decreased 06/26/2025 5:47 PM Edna Funes RN Pain Score 5 07/02/2025 9:19 AM EST Nela Emerson RN Pain Assessment 0-10 (Adult DVPRS/Pe ds 0-10) 07/02/2025 9:19 AM Nela Putnam RN * Nutrition Question Answer Date of Assessment Author Diet Type Regular;Consistent Carb 2 07/02/2025 1:00 PM EST Kiana Leeoe M, CHAIN HOIST OPERATOR Feeding Able to feed self 07/02/2025 1:00 PM EST Kiana Leeoe M, CHAIN HOIST OPERATOR * IBW/kg (Calculated) Answer Date of Assessment Author 54.74 07/02/2025 8:00 AM EST Jazmín Hwang, RD * Adult Low Range Vt 6mL/kg Answer Date of Assessment Author 328.44 07/02/2025 8:00 AM EST Jazmín Hwang, RD * Adult Moderate Range Vt 8mL/kg Answer Date of Assessment Author 437.92 07/02/2025 8:00 AM EST Jazmín Hwang, RD * Adult High Range Vt 10mL/kg Answer Date of Assessment Author 547.4 07/02/2025 8:00 AM EST Jazmín Hwang RD * Respiratory Interventions Question Answer Date of Assessment Author Respiratory Interventions Cough and deep breathing 07/02/2025 8:00 AM EST Nela Lebron RN * Cough and Deep Breathe Question Answer Date of Assessment Author Cough And Deep Breathing done independently per patient 07/02/2025 8:00 AM EST Nela Lebron RN * Integumentary Question Answer Date of Assessment Author Skin Color Jaundice;Ecchymosis 07/02/2025 8 :00 AM Nlea Putnam RN Skin Condition/Temp Dry 07/02/2025 8 :00 AM Nela Putnam RN Skin Integrity Blister;Bruising;Exc or iation;Redness 07/02/2025 8:00 AM Nela Putnam RN Skin Turgor Epidermis thin with loss of subcutaneous tissue 07/01/2025 4:20 PM EST Aixa Bolanos RN 4 Eyes Skin Assessment Completed Yes 07/02/2025 4:00 AM Estelle Hall RN Manual Dual Sign Off 2nd CORWIN Martinez RN 07/02/2025 4:00 AM Estelle Hall RN Skin Tone Light 07/01/2025 4:20 PM EST Aixa Bolanos RN Bruising Characteristics scattered 025 8:00 AM Nela Putnam RN Integumentary (WDL) X 07/02/2025 8 :00 AM Nela Putnam RN Redness Location Manfred cleft 07/01/2025 8:00 PM Estelle Hall RN Redness Characteristics Blanchable/heale d wound present 07/01/2025 8:00 PM Estelle Hall RN Blister Location Right 2nd toe 07/01/2025 8:00 PM Estelle Hall RN Blister Characteristics Purple 07/01/20 8:00 PM Estelle Hall RN * Skin Assessment Question Answer Date of Assessment Author Scale Used Mando 06/26/2025 1:00 AM EST Mariluz Hazel * Confusion Assessment Method (CAM) Question Answer Date of Assessment Author Acute Onset and Fluctuating Course (1A) No 07/02/2025 8:00 AM Nela Putnam RN * Feature 3: Altered Level of Consciousness Answer Date of Assessment Author Negative 07/02/2025 8:00 AM Aruna Putnam RN * Sedation Scales Question Answer Date of Assessment Author Sedation Scale Used Beverley Opioid-induce d Sedation Scale 07/02/2025 8:00 AM Nela Putnam RN RASS 0 07/02/2025 8:00 AM Nela Muhammad RN Pasero Opioid-Induced Sedation Scale (POSS) 1 07/02/2025 8:00 AM Nela Putnam RN * Urine Output/Assessment Question Answer Date of Assessment Author Urine Amount Medium 07/02/2025 12:00 AM Estelle Silva RN * Stool Output/Assessment Question Answer Date of Assessment Author Most Recent BM Date [id number] 07/02/2025 10:30 AM Nela Escamilla RN Unmeasured Stool Occurrence (hourly total) 1 07/02/2025 10:30 AM Nela Putnam RN Stool Color Brown 07/02/2025 10:30 AM Nela Chase RN Stool Amount Large 07/02/2025 10:30 AM Nela Chase RN Stool Appearance Loose 07/02/2025 10:30 AM Nela Putnam RN Bowel Incontinence No 07/02/2025 10:30 AM Nela Birch RN Loíza Stool Assessment [place] 06/29/2025 10:49 PM Estelle Hall RN * Fall Risk Calculated Score Answer Date of Assessment Author [place] High 07/02/2025 8:00 AM Aruna Putnam RN * Patient Specific Goals Question Answer Date of Assessment Author Patient/Family-Specific Goals (Include Timeframe) pt will remain free from harm during shift 07/02/2025 8:00 AM Nela Putnam RN Individualized Care Needs safety 07/02/2025 8:00 AM Nela Putnam RN Anxieties, Fears or Concerns none stated 07/02/2025 8:00 AM Nela Putnam RN * Delirium Assessment Question Answer Date of Assessment Author Delirium Prevention & Management Yes 07/02/2025 4:00 AM Estelle Hall RN Delirium Prevention & Management: Early Mobility Ambulate to extent of patient's ability;Up to chair for meals;Out of room if possible;Educate patient and family about the benfits of early mobility in the hospital 07/02/2025 4:00 AM Estelle Hall RN Delirium Prevention & Management: Cognitive Engagement Familiar objects from home provided;Familiar social contact provided;Puzzle books or other stimulation provided;Provide glasses and hearing aids;Reorienting communication;Optimize pain and other medication management;Emotional support provided;Environmental consistency promoted;Delirium prevention education provided to patient and family 07/02/2025 4:00 AM Estelle Hall RN Delirium Prevention & Management: Optimize Sleep/Wake Cycles Calming techniques provided;Lighting decreased at night;Encourage TV off at night;Environmental noise reduced at night;Bedtime routine promoted;Cluster care to decrease awakenings;Educate patient and family about optimizing sleep 07/02/2025 4:00 AM Estelle Hall RN Delirium Scale Used Confusion Assessment Method 07/02/2025 8:00 AM Nela Putnam RN * Unplanned Readmission Scores Question Answer Date of Assessment Author Unplanned Readmission Score 28.79 07/02/2025 12 :01 PM Dianne Moyer * [place] Coma Scale Numeric Answer Date of Assessment Author 15 07/02/2025 8:00 AM Aruna Putnam RN * Arterial Blood Gas Collection Question Answer Date of Assessment Author $ Arterial Puncture for ABG Yes 06/29/2025 10 :45 AM Naya Wu * Elevate heels task - custom formula Answer Date of Assessment Author 1 07/02/2025 4:00 AM Genevieve Hall RN * Vitals Timer Question Answer Date of Assessment Author Restart Vitals Timer Yes 07/02/2025 12:10 PM Sara Rodriguez CNA * Elopement Risk Screen Question Answer Date of Assessment Author Does the patient exhibit any of the following behaviors? No 07/02/2025 8:00 AM Cody Putnam RN Does the patient have a cour t ordered legal guardian? No 07/02/2025 8:00 AM Maria Putnam, CORWIN * C-SSRS (Frequent Screener) Question Answer Date of Assessment Author Is patient awake, alert, and able/willing to answer questions appropriately? Yes 07/02/2025 8:00 AM Nela Putnam, RN 1. Wish to be (Past 1 Month) No 025 8:00 AM Nela Putnam, RN 2. Non-Specific Active Suici josh Thoughts (Past 1 Month) No 07/02/2025 8:00 AM Maria Putnam, RN 6. Suicidal Behavior (Lifetime) No 8:00 AM Nela Putnam, RN * Discharge Planning Continued Question Answer Date of Assessment Author Transportation Home at Discharge Family/Friend will Provide 06/26/2025 8:02 AM Betzaida Vivar * [facility] 6-Clicks Mobility Assessment Question Answer Date of Assessment Author Difficulty patient has turni ng over in bed (including adjusting bedclothes, sheets, and blankets)? 4 06/26/2025 1:20 AM EST Mariluz Dawson Difficulty patient has sitti ng down on and standing up from a chair with arms (wheelchair, bedside commode, etc.)? 4 06/26/2025 1:20 AM EST Mariluz Dawson Difficulty patient has movin g from lying on back to sitting on the side of the bed? 4 06/26/2025 1:20 AM EST Mariluz Dawson How much help does the patie nt need moving to and from a bed to a chair (including a wheelchair)? 4 06/26/2025 1:20 AM EST Xiomara Dawson How much help does the patie nt need to walk in hospital room? 4 06/26/2025 1:20 AM EST Mariluz Dawson How much help does the patie nt need climbing 3-5 steps with a railing? 3 06/26/2025 1:20 AM EST Mariluz Crenshaw [facility] 6-Clicks Mobility Assessment Total 23 06/26/2025 1:20 AM EST Mariluz Dawson * HEENT Question Answer Date of Assessment Author JEFFRY (PARVEEN) X 07/02/2025 8:00 AM Nela Muhammad RN R Eye Sclera yellow;Mildly impaired vision 07/02/2025 8:00 AM Nela Putnam RN L Eye Sclera yellow;Mildly impaired vision 07/02/2025 8:00 AM Nela Putnam RN Head and Face Symmetrical 07/01/2025 4:[address] Ray [address] RN Neck Tenderness;Other (Comment) 07/02/2025 8:0 0 AM Nela Putnam RN * Pain Management Interventions Answer Date of Assessment Author medication (see MAR) 07/02/2025 8:19 AM Nela Chase RN * Outcome Evaluation Answer Date of Assessment Author Patient will verbalize under standing of current POC by end of shift 07/02/2025 12:37 AM EST Estelle Nguyen RN * Safety Interventions Question Answer Date of Assessment Author Stabilization Measures legs elevated 07/02/2025 8:00 A M Nela Putnam RN * Gastrointestinal Care Question Answer Date of Assessment Author Nausea/Vomiting Interventions sips of clear liquids given 06/30/2025 8:00 AM Nela Putnam RN Bowel Elimination Promotion adequate fluid intake promoted 07/02/2025 8:00 AM Nela Putnam RN * Coping/Psychosocial Interventions Question Answer Date of Assessment Author Spiritual Activities Assistance affirmation provided 07/02/2025 8:00 AM Nela Putnam RN * Safety Promotion Question Answer Date of Assessment Author Infection Prevention environmental surveillance performed;personal protective equipment utilized;rest/sleep promoted;single patient room provided 07/02/2025 8:00 AM Nela Putnam RN * Safety Interventions Question Answer Date of Assessment Author Safety Precautions/Falls Reduction nonskid shoes/slippers when out of bed 06/26/2025 12:50 AM EST Edna Avila RN All Alarms none present 06/26/2025 12:50 AM EST Edna Reeder RN * Musculoskeletal Interventions Question Answer Date of Assessment Author Fatigue Management frequent rest breaks encouraged 07/02/2025 8:00 AM Nela Putnam RN * Safety Promotion Question Answer Date of Assessment Author Medication Review/Management medications reviewed 07/02/2025 8:00 AM Nela Putnam RN * Coping/Psychosocial Interventions Question Answer Date of Assessment Author Supportive Measures relaxation technique s promoted;self-care encouraged 07/02/2025 8:00 AM Nela Putnam RN * Musculoskeletal Care Question Answer Date of Assessment Author Equipment Off:;daryl wrap 07/02/2025 8:00 AM Nela Chase RN * Basic Nutrition Care Question Answer Date of Assessment Author Nutrition Interventions meal set-up provided;meals from home/family encouraged;frequent small meals provided 07/02/2025 8:00 AM Nela Putnam RN * General Emergency Care CPG Interventions Question Answer Date of Assessment Author General (Individualize) patient will be free from falls while in the ed 06/26/2025 12:50 AM Edna Hicks RN Coping Interventions emotional support provided;reassurance provided 06/26/2025 12:50 AM Edna Hicks RN General Care Management calm environment promoted;monitored for physiologic status changes 06/26/2025 12:50 AM Edna iHcks RN * Wellbeing Promotion Question Answer Date of Assessment Author Complementary Therapy music therapy provided 8:00 AM Nela Putnam RN Trust Relationship/Rapport care explained;emotional support provided;questions answered;questions encouraged;thoughts/fee lings acknowledged 07/02/2025 8:00 AM Nela Putnam RN Diversional Activities smartphone;television 8:00 AM Nela Putnam RN Family/Support System Care self-care encouraged;support provided 06/30/2025 8:00 AM Nela Putnam RN * Sleep and Comfort Care Question Answer Date of Assessment Author Fever Reduction/Comfort Measures fluid intake increased;lightweight bedding;lightweight clothing 06/30/2025 8:00 AM Nela Putnam RN * Nutrition Interventions Question Answer Date of Assessment Author Oral Nutrition Promotion physical activity promoted;rest periods promoted 07/02/2025 8:00 AM Nela Putnam RN Fluid/Electrolyte Management fluids restricted 07/02/2025 8:00 AM Nela Putnam RN * Discharge Needs Assessment Question Answer Date of Assessment Author Discharge Facility/Level of Care Needs 1-Home or Self Care 07/02/2025 12:32 PM Betzaida Vivar Equipment Needed After Discharge Cpap;walker, rollator 06/26/2025 8:02 AM Betzaida Vivar Equipment Currently Used at Home Cpap;walker, rollator 06/26/2025 8:02 AM Betzaida Vivar Current Outpatient/Agency/Support Group clinic(s);DME 06/26/2025 8:02 AM Betzaida Vivar Anticipated Changes Related to Illness none 06/26/2025 8:02 AM Betzaida Vivar Transportation Anticipated family or fri end will provide 06/26/2025 8:02 AM Betzaida Vivar Outpatient/Agency/Support Group Needs clinic(s);DME 06/26/2025 8:02 AM Betzaida Vivar Transportation Concerns none 06/26/2025 8:02 A M Betzaida Vivar Concerns to be Addressed discharge planning 06/26/2025 8:02 AM Betzaida Vivar Readmission Within the Last 30 Days unable to assess 06/26/2025 8:02 AM Betzaida Vivar Patient/Family Anticipated Services at Transition durable medical equipment 06/26/2025 8:02 AM Betzaida Vivar Patient/Family Anticipates Transition to home with family 06/26/2025 8:02 AM Betzaida Vivar * Daily Care Interventions Question Answer Date of Assessment Author Self-Care Promotion independence encouraged 07/02/2025 8:00 AM Nela Putnam RN * Pain/Comfort/Sleep Interventions Question Answer Date of Assessment Author Sleep/Rest Enhancement awakenings minimized;natural light exposure provided;regular sleep/rest pattern promoted;relaxation techniques promoted;room darkened 07/02/2025 8:00 AM Nela Putnam RN * Activity and Hygiene Care Question Answer Date of Assessment Author Perineal Care perineum cleansed;sk in sealant/barrier applied 07/01/2025 8:00 PM Estelle Hall RN * Cognitive Interventions Question Answer Date of Assessment Author Sensory Stimulation Regulation care clustered;lighting decreased;quiet environment promoted;television on 07/02/2025 8:00 AM Nela Putnam RN * HLM Score Question Answer Date of Assessment Author [facility] Daily Mobility Goal 8 07/01/2025 8:0 0 PM Estelle Hall RN [facility] Daily Mobility Score 8 07/01/2025 8: 00 PM Estelle Hall RN * Plan of Care Reviewed With Answer Date of Assessment Author patient 07/02/2025 10:14 AM Nela Putnam RN * Pressure Injury Prevention (PIP) Interventions Question Answer Date of Assessment Author Pressure Reducing Devices Pillow 07/02/2025 8:00 AM Nela Putnam, CORWIN Bed Type Acute Care Bed 07/02/2025 8:00 AM Nela Mota, CORWIN * Vital Signs Question Answer Date of Assessment Author BP 106/68 07/02/2025 12:10 PM EST Inte rface, Doc Flowsheet In Temp 98.1 07/02/2025 12:10 PM EST Inte rface, Doc Flowsheet In Pulse 85 07/02/2025 12:10 PM EST Inte rface, Doc Flowsheet In MAP (mmHg) 81 07/02/2025 12:10 PM EST Inte rface, Doc Flowsheet In * Oxygen Therapy Question Answer Date of Assessment Author SpO2 100 07/02/2025 12:10 PM EST Inte rface, Doc Flowsheet In * Pain 2 Question Answer Date of Assessment Author Pain Score 2 0 - No pain 07/01/2025 8:24 AM EST Aiax Haider RN * Neurological Question Answer Date of Assessment Author L Pupil Reaction Brisk 06/26/2025 12:00 AM EST Edna Avila RN L Pupil Size (mm) 3 06/26/2025 12:00 AM EST Edna Avila RN R Pupil Reaction Brisk 06/26/2025 12:00 AM EST Edna Avila RN R Pupil Size (mm) 3 06/26/2025 12:00 AM EST Edna Avila RN Neuro (WDL) WDL 06/26/2025 12:00 AM EST Edna Reeder RN R Pupil Shape Round 06/26/2025 12:00 AM EST Edna Delatorre RN L Pupil Shape Round 06/26/2025 12:00 AM EST Edna Delatorre RN * Gastrointestinal Question Answer Date of Assessment Author Passing Flatus Yes 07/01/2025 4:00 AM EST Estelle Peña RN Abdominal Tenderness Tenderness 07/02/2025 8:00 AM Nela Escamilla RN Bowel Sounds (All Quadrants) Active 07/02/2025 8 :00 AM Nela Putnam RN Gastrointestinal (WDL) X 07/02/2025 8:00 AM Nela Putnam RN Abdomen Inspection Distended 07/02/2025 8:00 AM Nela Putnam RN GI Symptoms Bloating 06/26/2025 9:[address] [place] * Peripheral Vascular Question Answer Date of Assessment Author Peripheral Vascular (WDL) X 07/02/2025 8:00 AM EST Nela Lebron RN Generalized Edema Non-pitting 07/02/2025 8:00 AM Nela Putnam RN RLE Edema +2 07/02/2025 8:00 AM EST Nela Emerson RN LLE Edema +2 07/02/2025 8:00 AM Nela Muhammad RN Capillary Refill Less than/equal to 2 seconds (All extremities) 07/01/2025 4:20 PM EST Aixa Bolanos RN Pulses R radial;L radial;R pedal;L pedal 07/01/2025 4:20 PM EST Aixa Bolanos RN Cyanosis None 07/01/2025 4:20 PM EST Aixa Haider RN Edema Generalized;Right lower extremity;Left lower extremity 07/02/2025 8:00 AM EST Nela Lebron RN * RUE Neurovascular Assessment Question Answer Date of Assessment Author R Radial Pulse +2 07/02/2025 8:00 AM EST Nela Alegria RN * LUE Neurovascular Assessment Question Answer Date of Assessment Author L Radial Pulse +2 07/02/2025 8:00 AM EST Nela Alegria RN * RLE Neurovascular Assessment Question Answer Date of Assessment Author R Pedal Pulse +1 07/02/2025 8:00 AM EST Nela Almendarez RN * LLE Neurovascular Assessment Question Answer Date of Assessment Author L Pedal Pulse +1 07/02/2025 8:00 AM Nela Chase RN * Musculoskeletal Details Question Answer Date of Assessment Author Trunk Full movement 06/26/2025 12:00 AM EST Edna Delatorre RN Upper Back Pain with movement 06/26/2025 12:00 AM Edna Ruby RN Lower Back Pain with movement 06/26/2025 12:00 AM Edna Ruby RN * Musculoskeletal Question Answer Date of Assessment Author RUE Full movement 07/01/2025 4:[address], RN RLE Swelling;Weakness 07/02/2025 8:00 AM Nela Putnam RN LUE Full movement 07/01/2025 4:[address] Ray [address] RN LLE Swelling;Weakness 07/02/2025 8:00 AM Nela Putnam RN Musculoskeletal (WDL) X 07/02/2025 8:00 AM Nela Putnam RN Musculoskeletal Additional Assessments Yes 06/26/2025 12:00 AM EST Edna Avila RN * Urine Assessment Question Answer Date of Assessment Author Urinary Incontinence No 07/02/2025 4:00 AM E Estelle Benavidez RN * Psychosocial Question Answer Date of Assessment Author Psychological state Calm;Cooperative 07/02/2025 8:00 A M Nela Putnam RN Psychosocial (WDL) WDL 07/02/2025 8:00 AM Nela Putnam RN * Output (mL) Question Answer Date of Assessment Author Urine Color Yellow/straw 07/02/2025 6:01 AM Oscar Pearson CNA Urine Appearance Clear 07/02/2025 6:01 AM EST Oscar Lund CNA Urine Odor No odor 06/27/2025 11:00 PM EST Danelle Carbone CNA * Trin[place] Fall Risk Question Answer Date of Assessment Author History of Falling, Immediat e or Within 3 Months 25 07/02/2025 8:00 AM Nela Putnam RN Secondary Diagnosis 15 07/02/2025 8:00 AM Nela Birch it security consultant Aid 15 07/02/2025 8:00 AM EST Nela Alegria RN Intravenous Therapy/Heparin Lock 20 07/02/20 25 8:00 AM Nela Putnam RN Gait/Transferring 0 07/02/2025 8:00 AM Nela Putnam RN Mental Status 0 07/02/2025 8:00 AM Nela Chase RN Trin[place] Fall Risk Score 75 07/02/2025 8:00 AM Nela Putnam RN * Mando Scale Question Answer Date of Assessment Author Sensory Perceptions 3 07/02/2025 8:00 AM ES T Nela Lebron RN Moisture 4 07/02/2025 8:00 AM Nela Muhammad RN Activity 3 07/02/2025 8:00 AM Nela Muhammad RN Mobility 3 07/02/2025 8:00 AM Nela Muhammad RN Nutrition 3 07/02/2025 8:00 AM Nela Muhammad RN Friction and Shear 3 07/02/2025 8:00 AM Nela Putnam RN Mando Scale Score 19 07/02/2025 8:00 AM Nela Putnam RN * BSA (Calculated - sq m) Answer Date of Assessment Author 2.05 07/02/2025 8:00 AM EST Jazmín Hwang RD * Pain Location Answer Date of Assessment Author Abdomen;Neck 07/02/2025 8:19 AM Aruna Putnam RN * Pain Orientation Answer Date of Assessment Author Right;Lower;Posterior 07/02/2025 8:19 AM Nela Mota RN * Cardiac Question Answer Date of Assessment Author Cardiac (WDL) WDL 07/02/2025 8:00 AM EST Nela Almendarez RN Cardiac Regularity Regular 07/01/2025 4:20 PM EST Aixa Bolanos RN Heart Sounds S1, S2 07/01/2025 4:[address], RN Telemetry/Terrazzo Journeyman No 07/02/2025 8:00 AM EST Nela Lebron RN Jugular Venous Distention (JVD) No 4:20 PM EST Aixa Bolanos RN Cardiac Symptoms None 07/01/2025 8:00 PM EST Estelle Avitia RN * Respiratory Question Answer Date of Assessment Author Bilateral Breath Sounds Clear;Diminished 07/02/2025 8: 00 AM EST Nela Lebron RN Respiratory Pattern Regular 07/02/2025 8:00 AM Nela Birch RN Chest Assessment Symmetrical;Chest expansion symmetrical 07/01/2025 4:20 PM EST Aixa Bolanos RN Cough Dry;Non-productive 06/27/2025 4:00 PM EST Tracy Quigley RN Respiratory (WDL) X 07/02/2025 8:00 AM EST Nela Lebron RN Respiratory Effort Unlabored 07/02/2025 8:00 AM EST Nela Lebron RN Respiratory Depth/Rhythm Regular 07/01/2025 8:19 AM EST Aixa Bolanos RN Dyspnea Occurrence At rest 07/01/2025 8:19 AM Aixa Sabillon RN * Vitals Question Answer Date of Assessment Author Temp src Oral 07/02/2025 12:10 PM EST Cest radames, Sara M, CHAIN HOIST OPERATOR Resp 16 07/02/2025 12:10 PM EST Cest radames, Sara M, CHAIN HOIST OPERATOR BP Location Left arm 07/02/2025 12:10 PM EST Cest radames, Sara M, CHAIN HOIST OPERATOR BP Method Automatic 07/02/2025 12:10 PM EST Cest radames, Sara M, CHAIN HOIST OPERATOR Pulse Oximetry Type Intermittent 06/30/2025 7:28 AM Betzaida Ramos Patient Activity During SpO2 Measurement At rest 06/30/2025 7:28 AM Betzaida Cast Oxygen Therapy None 07/02/2025 12:10 PM EST Ce staric, Sara M, CHAIN HOIST OPERATOR Patient Position Sitting 07/02/2025 12:10 PM EST Cestaric, Sara M, CHAIN HOIST OPERATOR * Patient Information Question Answer Date of Assessment Author Support System Immediate family 06/26/2025 8:01 AM Betzaida Vivar * Activities of Daily Living Question Answer Date of Assessment Author Living Arrangements Family 06/26/2025 8:01 AM Betzaida Wilks Type of Residence Private residence 06/26/2025 8:01 AM Betzaida Vivar * Income Information Question Answer Date of Assessment Author Income Source Government aid 06/26/2025 8:01 AM EST Francis [email or web address] * Advance Directives (For Healthcare) Question Answer Date of Assessment Author Advance Directive Patient does not hav e advance directive 06/26/2025 1:21 AM EST Mariluz Dawson Pre-existing DNR/DNI Order No 06/26/2025 1:21 AM EST Mariluz Dawson Information Provided on Healthcare Directives No 06/26/2025 1:21 AM EST Mariluz Dawson Patient Requests Assistance No 06/26/2025 1:21 AM EST Mariluz Dawson * Nutrition Screen Question Answer Date of Assessment Author Difficulty Chewing or Swallowing No 06/26/20 1:22 AM EST Mariluz Dawson Burn, Pressure Injury, or No n-Healing Wound No 06/26/2025 1:22 AM EST Mariluz Dawson Home Tube Feeding or Total P arenteral Nutrition (TPN) No 06/26/2025 1:22 AM EST Mariluz Dawson Food allergy, Hinduism, or Cultural nutrition needs No 06/26/2025 1:22 AM Mariluz Angela * Pain Descriptors Answer Date of Assessment Author Aching;Discomfort 07/02/2025 8:19 AM Nela Putnam RN * Pain Onset Answer Date of Assessment Author Ongoing 07/02/2025 8:19 AM Aruna Putnam RN * Pain Frequency Answer Date of Assessment Author Intermittent 07/02/2025 8:19 AM Aruna Putnam RN * Patient's Stated Pain Goal Answer Date of Assessment Author No pain 07/02/2025 8:19 AM Aruna Putnam RN * Trauma/Abuse Assessment Question Answer Date of Assessment Author Physical Abuse Denies 06/26/2025 1:21 AM Mariluz Deluna Verbal Abuse Denies 06/26/2025 1:21 AM EST Mariluz Hazel * Values/Beliefs Question Answer Date of Assessment Author Cultural Requests During Hospitalization none 06/26/2025 1:21 AM EST Mariluz Dawson Spiritual Requests During Hospitalization none 06/26/2025 1:21 AM EST Mariluz Dawson Unable to assess No 06/26/2025 1:21 AM EST Mariluz Barrios * Genitourinary Question Answer Date of Assessment Author Genitourinary (WDL) [facility] 07/02/2025 8:00 AM Nela Birch, RN * Neurological Question Answer Date of Assessment Author Level of Consciousness Alert 4:20 PM Aixa Sabillon RN Orientation Level Oriented X4 07/01/2025 4:2 0 PM Aixa Sabillon RN Cognition Follows commands 07/01/2025 4:20 PM Aixa Sabillon RN Speech Clear 07/01/2025 4:20 PM Aixa Sabillon RN Neuro ([facility]) [facility] 07/02/2025 8:00 AM Nela Putnam RN Swallow Able to swallow ana lilia ds and liquids without difficulty 07/01/2025 4:20 PM Aixa Sabillon RN R Hand Grasp Moderate 07/01/2025 4:20 PM Aixa Sabillon RN L Hand Grasp Moderate 07/01/2025 4:20 PM Aixa Sabillon RN R Foot Dorsiflexion Moderate 07/01/2025 4 :20 PM Aixa Sabillon RN L Foot Dorsiflexion Moderate 07/01/2025 4 :20 PM Aixa Sabillon RN R Foot Plantar Flexion Moderate 4:20 PM Aixa Sabillon RN L Foot Plantar Flexion Moderate 4:20 PM Aixa Sabillon RN Neuro Symptoms None 07/01/2025 4:20 PM Aixa Sabillon RN Hand Grasp/Motor Function/Sensation Assessment Grasp;Dorsiflexion;Soham ntar flexion 07/01/2025 4:20 PM Aixa Sabillon RN * Safe Environment Question Answer Date of Assessment Author 37-Pin Connection [Bed and Wall] Yes 07/02/2025 1:00 PM EST Cestaric, Sara M , CHAIN HOIST OPERATOR Arm Bands On ID 07/02/2025 1:00 PM EST Cesta chris, Sara M, CHAIN HOIST OPERATOR Side Rails/Bed Safety 2/07/02/2025 1:00 PM EST Cestaric, Sara M, CHAIN HOIST OPERATOR NonSkid Footwear On;Patient in bed 07/02/2025 1:00 PM EST Cestaric, Sara M, CHAIN HOIST OPERATOR The Patient's Environment is Safe Yes 07/02/2025 1:00 PM EST CestaricKianaoe M , CHAIN HOIST OPERATOR Head of Bed Angle 30 06/28/2025 8:00 PM EST Meche Coreas, RN Bed Foot Left Rail Up State No 07/02/2025 5:00 AM Estelle Hall RN Bed Head Right Rail Up State Yes 07/02/2025 5:00 AM Estelle Hall, RN Bed Head Left Rail Up State Yes 07/02/2025 5:00 AM EST Estelle Nguyen, RN Bed Foot Right Rail Up State No 07/02/2025 5:00 AM EST Estelle Nguyen, RN Bed Exit System Activate Status No 07/02/2025 5:00 AM Estelle Hall, RN Bed Brake State Yes 07/02/2025 5:00 AM EST Estelle Cruz RN Bed Low Height State Yes 07/02/2025 5:[address] Estelle Nguyen RN Chair Exit System Activate Status No 07/02/2025 1:00 PM EST Sara Lee CHAIN HOIST OPERATOR * Fall Risk Interventions Question Answer Date of Assessment Author Safety Promotion/Fall Prevention activity supervised;clutter-free environment maintained;fall prevention program maintained;nonskid shoes/slippers when out of bed;room organization consistent;safety round/check completed 07/02/2025 1:00 PM EST Kiana Leeoe Eloisa CHAIN HOIST OPERATOR Enhanced Safety Measures bed alarm set;education provided 07/02/2025 8:00 AM Nela Putnam RN Toilet Every 2 Hours-In Advance of Need Yes 07/02/2025 1:00 PM EST Cestaric Sara M, CHAIN HOIST OPERATOR Hourly Visual Checks Awake;In bed 07/02/2025 1:00 PM EST MeletaricKianaoe M, CHAIN HOIST OPERATOR Room Door Open Yes 07/02/2025 1:00 PM EST Meletaric Sara M, CHAIN HOIST OPERATOR Gait Belt Used For Transfers Not applicable 07/01/2025 8:00 PM Estelle Hall RN Fall Bundle Components Call light within reach;Personal belongings within reach;Overbed table within reach;Bed in lowest position;Bed wheels locked;Non-skid footwear on if up in chair or ambulating 07/02/2025 1:00 PM Sara Rodriguez CNA * Mobility Question Answer Date of Assessment Author Range of Motion active ROM (range of motion) encouraged 07/02/2025 8:00 AM Nela Putnam RN Activity Management up ad michelle 07/02/2025 1 :00 PM Sara Rodriguez CNA Activity Assistance Provided independent 07/02/2025 1:00 PM Sara Rodriguez CNA Assistive Device Utilized cane 07/02/2025 8:00 AM Nela Putnam RN Body Position weight shifting 07/02/2025 1:00 PM Sara Rodriguez CNA VTE Prevention/Management SCDs (sequential compression devices) off 07/02/2025 8:00 AM Nela Putnam RN Head of Bed (HOB) Positioning HOB elevated 07/02/2025 1:00 PM Sara Rodriguez CNA Distance Ambulated (ft) 100 07/01/20 7:49 AM Aixa Sabillon RN Ambulation Response Tolerated well 07/02/2025 1 :00 PM Sara Rodriguez CNA Heels/Feet Foot of bed elevated 07/02/2025 1:00 PM EST Sara Lee CNA Reason for Removing Anti-Embolism Device Ambulating 07/02/2025 4:00 AM Estelle Hall RN Positioning Frequency Able to turn self 07/02/20 1:00 PM Sara Rodriguez CNA * Hygiene Question Answer Date of Assessment Author Bathing/Skin Care dressed/undressed;brennan ir washed;linen changed;moisturizer applied;shower 07/02/2025 6:03 AM Oscar Pearson CNA Skin Protection incontinence pads utilized;skin sealant/moisture barrier applied 07/02/2025 8:00 AM Nela Putnam RN Oral Care other (see comments) 07/01/2025 8:00 PM Estelle Hall RN Oral Care (Yes/No) No 07/01/2025 8: 00 PM Estelle Hall RN Hernandez Care Castile Wipes Used Perineum cleansed with soap/water prior 06/30/2025 11:00 AM Betzaida Cast * Precautions Question Answer Date of Assessment Author Isolation Precautions precautions maintained 8:00 AM Nela Putnam RN Precautions Fall risk;Environmen sarina surveillance 07/02/2025 1:00 PM Sara Rodriguez CNA * Family/Significant Other Communication Question Answer Date of Assessment Author Family/Significant Other Update Visiting 8:00 AM Tracy Weston RN * Telemetry Details Question Answer Date of Assessment Author Contour Grinder On No 07/02/2025 1:00 PM Sara Parish CNA * Comfort and Environment Interventions Question Answer Date of Assessment Author Warm [place] Applied 06/30/2025 11:00 AM Betzaida Ramirez Comfort Other (Comment) 07/01/2025 9:00 PM Estelle Saunders RN Additional Comfort/Environmental Interventions Warm blanket 06/30/2025 11:00 AM Betzaida Cast * Miscellaneous Devices Question Answer Date of Assessment Author Daryl Wrap Care Skin assessed 07/01/2025 8:00 PM Estelle Adam RN Daryl Wrap Removed 07/01/2025 8:00 PM Estelle Hall RN * Safety Equipment at Bedside Question Answer Date of Assessment Author Standard Bedside Safety Ambu bags in hallway;Oxygen available and working;Suction available, setup and working 07/02/2025 1:00 PM Sara Rodriguez CNA Additional Bedside Safety Bed in locked and low position;Clutter free environment 07/02/2025 1:00 PM Sara Rodriguez CNA * Consults Question Answer Date of Assessment Author Integrative Medicine Consult Needed No 06/26 1:21 AM Mariluz Angela Pastoral Care Consult Needed No 06/26/2025 1 :21 AM Mariluz Angela Degreaser Operator Consult Needed No 06/26/2025 1:21 AM Mariluz Angela * Therapy Consults Question Answer Date of Assessment Author PT Evaluation Needed 2 06/26/2025 1:[address] [place], [place]uz OT Evaluation Needed 2 06/26/2025 1:[address] Xiomara Dawsonyla TANDEM MILL OPERATOR Evaluation Needed 2 06/26/2025 1:20 AM Xiomara Angelayla * Assistive Devices Question Answer Date of Assessment Author Assistive Devices Cane 06/26/2025 1:20 AM Xiomara Angelayla * End of Shift Review Question Answer Date of Assessment Author Shift Review Complete Yes 07/02/2025 7:00 AM Nela Putnam RN Shift Report Received From CORWIN Mccabe 07/02/2025 7:00 AM Nela Putnam RN Shift Report Given To Nela Huston RN 07/02/2025 7:0 0 AM Nela Putnam RN * Hourly Rounding Question Answer Date of Assessment Author Hourly Rounding Complete Per Guideline Yes 07/02/2025 1:00 PM Sara Rodriguez CNA * Patient Violence Risk Assessment Question Answer Date of Assessment Author History of Violence: In the past 12 hours has the PATIENT exhibited any of the following? None 07/02/2025 8:00 AM Nela Putnam RN Potential for Violence: In the past 12 hours has the PATIENT exhibited any of the following? None 07/02/2025 8:00 AM Nela Putnam RN Risk No identified risk 07/02/2025 8:00 AM Nela Putnam RN History of Violence: In the past 12 hours has a PARTNER IN CARE of the patient exhibited any of the following? None 07/02/2025 8:00 AM Nela Putnam RN * Mobility Question Answer Date of Assessment Author Ambulation Stand by 07/02/2025 8:00 AM Nela Muhammad RN * Restart Vitals Timer Answer Date of Assessment Author Yes 07/02/2025 12:10 PM Sara Rodriguez CNA * STOP-Bang Questionnaire Question Answer Date of Assessment Author Do you snore loudly? 1 06/26/2025 2:00 AM E Mariluz Bennett Do you often feel tired or f atigued after your sleep? 1 06/26/2025 2:00 AM Mariluz Angela Has anyone ever observed you stop breathing in your sleep? 1 06/26/2025 2:00 AM EST Cecelia Dawson la Do you have or are you being treated for high blood pressure? 1 06/26/2025 2:00 AM EST SamirXiomara wilsonyla Is BMI greater than 35 kg/m2? 1=Yes 06/26/2025 2:00 AM EST Samir Mariluz Age older than 50 years old? 1=Yes 06/26/2025 2 :00 AM EST SamirXiomara wilsonyla Is your neck circumference g reater than 17 inches (Male) or 16 inches (Female)? 0 06/26/2025 2:[address] Samir Mariluz Gender - Male 0=No 06/26/2025 2:00 AM EST Matl ockXiomaraMariluz STOP-Bang Total Score 6 06/26/2025 2:00 AM EST SamirXiomaraMariluz Recent BMI (Calculated) 36.4 06/26/2025 2:00 A M EST [place] * Calculated C-SSRS Risk Score (Lifetime/Recent) Answer Date of Assessment Author No Risk Indicated 07/02/2025 8:00 AM Nela Putnam RN * Michael Coma Scale Question Answer Date of Assessment Author Best Eye Response Spontaneous 07/02/2025 8:00 AM Nela Putnam RN Best Verbal Response Oriented 07/02/2025 8:00 AM Nela Escamilla RN Best Motor Response Follows commands 07/02/2025 8:00 A M Nela Putnam RN Michael Coma Scale Score 15 07/02/2025 8:00 AM Nela Putnam RN * Care Handoff Question Answer Date of Assessment Author Handoff Received From Edna OLIVIA 06/26/2025 12:58 AM EST Edna Avila RN * Learning Assessment Question Answer Date of Assessment Author Education Level High school 06/25/2025 7:20 PM EST Misty Harrison RN Factors that Impact Ability to Learn None 06/25/2025 7:20 PM EST Misty Ortiz R N Cultural Considerations None 06/25/2025 7:20 P M EST Misty Ortiz RN Hinduism Considerations None 06/25/2025 7:20 PM Misty Palomares RN * KINDER 1 Fall Risk Factor Assessment Question Answer Date of Assessment Author Presented to ED because of fall 0 5:49 PM Misty Palomares RN Age > 70 0 06/25/2025 5:49 PM Misty Palomares RN Intoxicated with alcohol or substance confusion 0 06/25/2025 5:49 PM Misty Paolmares R N Ambulates or transfers with assistive devices or assist 0 06/25/2025 5:49 PM Nikko Palomares RN Unable to ambulate or transfer 0 06/25/2025 5:49 PM Misty Palomares RN Nursing judgement 0 06/25/2025 5:49 PM Misty Palomares RN KINDER 1 Fall Risk Score 0 06/25/2025 5:49 PM Misty Palomares RN * Patient Belongings Placed in Locker Question Answer Date of Assessment Author Belongings at Bedside Retained by bruce bella and/or family/legal u.s. representative who assumes responsibility 06/25/2025 7:20 PM Misty Palomares RN * Weight in (lb) to have BMI = 25 Answer Date of Assessment Author 145.4 07/02/2025 8:[address] * Pain Type Answer Date of Assessment Author Acute pain 07/02/2025 8:19 AM Aruna Putnam RN * Clinical Progression Answer Date of Assessment Author Gradually improving 07/02/2025 8:19 AM Nela Muhammad RN * Anthropometrics Question Answer Date of Assessment Author Height 64.016 07/02/2025 8:[address] Weight 3268.8 07/02/2025 8:[address] BMI (Calculated) 35.05 07/02/2025 8:[address] * Pain Assessment Question Answer Date of Assessment Author Patient is asleep Yes, assume pain is decreased 06/26/2025 5:47 PM Edna Funes RN Pain Score 5 07/02/2025 9:19 AM Nela Muhammad RN Pain Assessment 0-10 (Adult DVPRS/Pe ds 0-10) 07/02/2025 9:19 AM Nela Putnam RN * Nutrition Question Answer Date of Assessment Author Diet Type Regular;Consistent Carb 2 07/02/2025 1:00 PM Sara Rodriguez CNA Feeding Able to feed self 07/02/2025 1:00 PM Sara Rodriguez CNA * Respiratory Interventions Question Answer Date of Assessment Author Respiratory Interventions Cough and deep breathing 07/02/2025 8:00 AM Nela Putnam RN * Cough and Deep Breathe Question Answer Date of Assessment Author Cough And Deep Breathing done independently per patient 07/02/2025 8:00 AM Nela Putnam RN * Integumentary Question Answer Date of Assessment Author Skin Color Jaundice;Ecchymosis 07/02/2025 8 :00 AM Nela Putnam RN Skin Condition/Temp Dry 07/02/2025 8 :00 AM Nela Putnam RN Skin Integrity Blister;Bruising;Exc or iation;Redness 07/02/2025 8:00 AM Nela Putnam RN Skin Turgor Epidermis thin with loss of subcutaneous tissue 07/01/2025 4:20 PM Aixa Sabillon RN 4 Eyes Skin Assessment Completed Yes 07/02/2025 4:00 AM Estelle Hall RN Manual Dual Sign Off 2nd CORWIN Martinez RN 07/02/2025 4:00 AM Estelle Hall RN Skin Tone Light 07/01/2025 4:20 PM Aixa Sabillon RN Bruising Characteristics scattered 025 8:00 AM Nela Putnam RN Integumentary (WDL) X 07/02/2025 8 :00 AM Nela Putnam RN Redness Location cleft 07/01/2025 8:00 PM Estelle Hall RN Redness Characteristics Blanchable/heale d wound present 07/01/2025 8:00 PM Estelle Hall RN Blister Location Right 2nd toe 07/01/2025 8:00 PM Estelle Hall RN Blister Characteristics Purple 07/01/20 8:00 PM Estelle Hall RN * Confusion Assessment Method (CAM) Question Answer Date of Assessment Author Acute Onset and Fluctuating Course (1A) No 07/02/2025 8:00 AM Nela Putnam RN * Feature 3: Altered Level of Consciousness Answer Date of Assessment Author Negative 07/02/2025 8:00 AM Aruna Putnam RN * Sedation Scales Question Answer Date of Assessment Author RASS 0 07/02/2025 8:00 AM Nela Muhammad RN * Stool Output/Assessment Question Answer Date of Assessment Author Most Recent BM Date [address] 07/02/2025 10:30 AM Nela Escamilla RN Unmeasured Stool Occurrence (hourly total) 1 07/02/2025 10:30 AM Nela Putnam RN Stool Color Brown 07/02/2025 10:30 AM Nela Chase RN Stool Amount Large 07/02/2025 10:30 AM Nela Chase RN Stool Appearance Loose 07/02/2025 10:30 AM Nela Putnam RN Bowel Incontinence No 07/02/2025 10:30 AM Nela Birch RN Loíza Stool Assessment [place] 06/29/2025 10:49 PM Estelle Hall RN * Patient Specific Goals Question Answer Date of Assessment Author Patient/Family-Specific Goals (Include Timeframe) pt will remain free from harm during shift 07/02/2025 8:00 AM Nela Putnam RN Individualized Care Needs safety 07/02/2025 8:00 AM Nela Putnam RN Anxieties, Fears or Concerns none stated 07/02/2025 8:00 AM Nela Putnam RN * Delirium Assessment Question Answer Date of Assessment Author Delirium Prevention & Management Yes 07/02/2025 4:00 AM Estelle Hall RN Delirium Prevention & Management: Early Mobility Ambulate to extent of patient's ability;Up to chair for meals;Out of room if possible;Educate patient and family about the benfits of early mobility in the hospital 07/02/2025 4:00 AM Estelle Hall RN Delirium Prevention & Management: Cognitive Engagement Familiar objects from home provided;Familiar social contact provided;Puzzle books or other stimulation provided;Provide glasses and hearing aids;Reorienting communication;Optimize pain and other medication management;Emotional support provided;Environmental consistency promoted;Delirium prevention education provided to patient and family 07/02/2025 4:00 AM Estelle Hall RN Delirium Prevention & Management: Optimize Sleep/Wake Cycles Calming techniques provided;Lighting decreased at night;Encourage TV off at night;Environmental noise reduced at night;Bedtime routine promoted;Cluster care to decrease awakenings;Educate patient and family about optimizing sleep 07/02/2025 4:00 AM Estelle Hall RN Delirium Scale Used Confusion Assessment Method 07/02/2025 8:00 AM Nela Putnam RN * Elopement Risk Screen Question Answer Date of Assessment Author Does the patient exhibit any of the following behaviors? No 07/02/2025 8:00 AM Cody Putnam RN Does the patient have a cour t ordered legal guardian? No 07/02/2025 8:00 AM Maria Putnam RN * C-SSRS (Frequent Screener) Question Answer Date of Assessment Author Is patient awake, alert, and able/willing to answer questions appropriately? Yes 07/02/2025 8:00 AM Nela Putnam RN 1. Wish to be (Past 1 Month) No 025 8:00 AM Nela Putnam RN 2. Non-Specific Active Suici josh Thoughts (Past 1 Month) No 07/02/2025 8:00 AM Maria Putnam RN 6. Suicidal Behavior (Lifetime) No 8:00 AM Nela Putnam RN * Discharge Planning Continued Question Answer Date of Assessment Author Transportation Home at Discharge Family/Friend will Provide 06/26/2025 8:02 AM Betzaida Vivar * [facility] 6-Clicks Mobility Assessment Question Answer Date of Assessment Author Difficulty patient has turni ng over in bed (including adjusting bedclothes, sheets, and blankets)? 4 06/26/2025 1:20 AM Mariluz Angela Difficulty patient has sitti ng down on and standing up from a chair with arms (wheelchair, bedside commode, etc.)? 4 06/26/2025 1:20 AM EST Mariluz Dawson Difficulty patient has movin g from lying on back to sitting on the side of the bed? 4 06/26/2025 1:20 AM EST Mariluz Dawson How much help does the patie nt need moving to and from a bed to a chair (including a wheelchair)? 4 06/26/2025 1:20 AM EST Xiomara Dawson How much help does the patie nt need to walk in hospital room? 4 06/26/2025 1:20 AM EST Mariluz Dawson How much help does the patie nt need climbing 3-5 steps with a railing? 3 06/26/2025 1:20 AM EST Mariluz Crenshaw [facility] 6-Clicks Mobility Assessment Total 23 06/26/2025 1:20 AM EST Mariluz Dawson documented as of this encounter Mental Status * HEENT Question Answer Entry Date Author JEFFRY (PARVEEN) X 07/02/2025 8:00 AM EST Nela Emerson RN R Eye Sclera yellow;Mildly impaired vision 07/02/2025 8:00 AM Nela Putnam RN L Eye Sclera yellow;Mildly impaired vision 07/02/2025 8:00 AM Nela Putnam RN Head and Face Symmetrical 07/01/2025 4:[address] Ray [address] RN Neck Tenderness;Other (Comment) 07/02/2025 8:0 0 AM Nela Putnam RN * BMI (Calculated) Answer Entry Date Author 35.1 07/02/2025 8:[address] * Percent Excess Weight Loss Answer Entry Date Author 0 07/02/2025 8:[address] * Total Weight Change Percent Answer Entry Date Author 222107/02/2025 8:[address] * Weight Change Since Preop Answer Entry Date Author 92.65 07/02/2025 8:[address] * Initial Excess Weight Answer Entry Date Author -54.47 07/02/2025 8:00 AM EST Jazmín Hwang, RD * IBW in lbs (Bariatric) Answer Entry Date Author 120.08 07/02/2025 8:00 AM EST Jazmín Hwang G, RD * Weight Change Since Last Visit Answer Entry Date Author 0 07/02/2025 8:00 AM EST Jazmín Hwang, RD * IBW in kg (Bariatric) Answer Entry Date Author 54.47 07/02/2025 8:00 AM EST Jazmín Hwang G, RD * Percent of IBW Answer Entry Date Author 6,001.1 07/02/2025 8:00 AM EST Jazmín Hwang, RD * EBW (kg) Answer Entry Date Author 3,267.26 07/02/2025 8:00 AM EST Jazmín Hwang, RD * EBW (lbs) Answer Entry Date Author 3,261.3 07/02/2025 8:00 AM EST Jazmín Hwang, RD * Progress Answer Entry Date Author improving 07/02/2025 10:14 AM Nela Putnam RN * Pain Management Interventions Answer Entry Date Author medication (see MAR) 07/02/2025 8:19 AM EST Nela Almendarez RN * Outcome Evaluation Answer Entry Date Author Patient will verbalize under standing of current POC by end of shift 07/02/2025 12:37 AM EST Estelle Nguyen RN * Safety Interventions Question Answer Entry Date Author Stabilization Measures legs elevated 07/02/2025 8:00 A M Nela Putnam RN * Gastrointestinal Care Question Answer Entry Date Author Nausea/Vomiting Interventions sips of clear liquids given 06/30/2025 8:00 AM Nela Putnam RN Bowel Elimination Promotion adequate flu id intake promoted 07/02/2025 8:00 AM Nela Putnam RN * Coping/Psychosocial Interventions Question Answer Entry Date Author Spiritual Activities Assistance affirmation provided 07/02/2025 8:00 AM Nela Putnam RN * Safety Promotion Question Answer Entry Date Author Infection Prevention environmental surve illance performed;personal protective equipment utilized;rest/sleep promoted;single patient room provided 07/02/2025 8:00 AM Nela Putnam RN * Safety Interventions Question Answer Entry Date Author Safety Precautions/Falls Reduction nonskid shoes/slippers when out of bed 06/26/2025 12:50 AM Edna Hicks RN All Alarms none present 06/26/2025 12:50 AM Edna Hicks RN * Musculoskeletal Interventions Question Answer Entry Date Author Fatigue Management frequent rest breaks encouraged 07/02/2025 8:00 AM Nela Putnam RN * Safety Promotion Question Answer Entry Date Author Medication Review/Management medications reviewed 07/02/2025 8:00 AM Nela Putnam, CORWIN * Coping/Psychosocial Interventions Question Answer Entry Date Author Supportive Measures relaxation technique s promoted;self-care encouraged 07/02/2025 8:00 AM Nela Putnam RN * Musculoskeletal Care Question Answer Entry Date Author Equipment Off:;daryl wrap 07/02/2025 8:00 AM Nela Chase RN * Basic Nutrition Care Question Answer Entry Date Author Nutrition Interventions meal set-up provided;meals from home/family encouraged;frequent small meals provided 07/02/2025 8:00 AM Nela Putnam RN * General Emergency Care CPG Interventions Question Answer Entry Date Author General (Individualize) patient will be free from falls while in the ed 06/26/2025 12:50 AM Edna Hicks RN Coping Interventions emotional support provided;reassurance provided 06/26/2025 12:50 AM Edna Hicks RN General Care Management calm environment promoted;monitored for physiologic status changes 06/26/2025 12:50 AM Edna Hicks RN * Wellbeing Promotion Question Answer Entry Date Author Complementary Therapy music therapy provided 8:00 AM Nela Putnam RN Trust Relationship/Rapport care explaine d;emotional support provided;questions answered;questions encouraged;thoughts/feel ings acknowledged 07/02/2025 8:00 AM Nela Putnam RN Diversional Activities smartphone;television 8:00 AM Nela Putnam assembler tractor/Support System Care self-care encouraged;support provided 06/30/2025 8:00 AM Nela Putnam RN * Sleep and Comfort Care Question Answer Entry Date Author Fever Reduction/Comfort Measures fluid intake increased;lightweight bedding;lightweight clothing 06/30/2025 8:00 AM Nela Putnam RN * Nutrition Interventions Question Answer Entry Date Author Oral Nutrition Promotion physical activi ty promoted;rest periods promoted 07/02/2025 8:00 AM Nela Putnam, RN Fluid/Electrolyte Management fluids restricted 07/02/2025 8:00 AM Nela Putnam RN * Discharge Needs Assessment Question Answer Entry Date Author Discharge Facility/Level of Care Needs 1-Home or Self Care 07/02/2025 12:32 PM Betzaida Vivar Equipment Needed After Discharge Cpap;walker, rollator 06/26/2025 8:02 AM Betzaida Vivar Equipment Currently Used at Home Cpap;walker, rollator 06/26/2025 8:02 AM Betzaida Vivar Current Outpatient/Agency/Support Group clinic(s);DME 06/26/2025 8:02 AM Betzaida Vivar Anticipated Changes Related to Illness none 06/26/2025 8:02 AM Betzaida Vivar Transportation Anticipated family or fri end will provide 06/26/2025 8:02 AM Betzaida Vivar Outpatient/Agency/Support Group Needs clinic(s);DME 06/26/2025 8:02 AM Betzaida Vivar Transportation Concerns none 06/26/20 8:02 AM Betzaida Vivar Concerns to be Addressed discharge planning 06/11 8:02 AM Betzaida Vivar Readmission Within the Last 30 Days unable to assess 06/26/2025 8:02 AM Betzaida Vivar Patient/Family Anticipated Services at Transition durable medical equipment 06/26/2025 8:02 AM Betzaida Vivar Patient/Family Anticipates Transition to home with family 06/26/2025 8:02 AM Betzaida Vivar * Daily Care Interventions Question Answer Entry Date Author Self-Care Promotion independence encouraged 06/12 8:00 AM Nela Putnam, RN * Pain/Comfort/Sleep Interventions Question Answer Entry Date Author Sleep/Rest Enhancement awakenings minimized;natural light exposure provided;regular sleep/rest pattern promoted;relaxation techniques promoted;room darkened 07/02/2025 8:00 AM Nela Putnam, CORWIN * Activity and Hygiene Care Question Answer Entry Date Author Perineal Care perineum cleansed;sk in sealant/barrier applied 07/01/2025 8:00 PM Estelle Hall, CORWIN * Cognitive Interventions Question Answer Entry Date Author Sensory Stimulation Regulation care clustered;lighting decreased;quiet environment promoted;television on 07/02/2025 8:00 AM Nela Putnam, CORWIN * Acuity/Destination Question Answer Entry Date Author Patient Acuity 2 06/25/2025 4:46 PM EST Timur Moraanda Triage Complete Triage complete 06/25/2025 4:46 PM EST Ale Cox * Weight Change 24 hrs Answer Entry Date Author .37 07/02/2025 8:[address] * Facility NPI Question Answer Entry Date Author [facility] 06/28/2025 12:49 P M EST Gordo Lemos * HL Score Question Answer Entry Date Author [facility] Daily Mobility Goal 8 07/01/2025 8:0 0 PM Estelle Hall, CORWIN [facility] Daily Mobility Score 8 07/01/2025 8: 00 PM Estelle Hall, CORWIN * Plan of Care Reviewed With Answer Entry Date Author patient 07/02/2025 10:14 AM Nela Putnam, CORWIN * Pressure Injury Prevention (PIP) Interventions Question Answer Entry Date Author Pressure Reducing Devices Pillow 07/02/2025 8:00 AM Nela Putnam RN Bed Type Acute Care Bed 07/02/2025 8:00 AM Nela Mota, CORWIN * Vital Signs Question Answer Entry Date Author BP 106/68 07/02/2025 12:10 PM EST Shon Bingham Flowsheet In Temp 98.1 07/02/2025 12:10 PM EST Shon Bingham Flowsheet In Pulse 85 07/02/2025 12:10 PM Shon Aaron Flowsheet In MAP (mmHg) 81 07/02/2025 12:10 PM Shon Aaron Flowsheet In * Oxygen Therapy Question Answer Entry Date Author SpO2 100 07/02/2025 12:10 PM EST Inte rface, Doc Flowsheet In * Pain 2 Question Answer Entry Date Author Pain Score 2 0 - No pain 07/01/2025 8:24 AM EST Aixa Haider, CORWIN * Neurological Question Answer Entry Date Author L Pupil Reaction Brisk 06/26/2025 12:00 AM EST Edna Avila, RN L Pupil Size (mm) 3 06/26/2025 12:00 AM EST Edna Avila, RN R Pupil Reaction Brisk 06/26/2025 12:00 AM EST Edna Avila, RN R Pupil Size (mm) 3 06/26/2025 12:00 AM EST Edna Avila RN Neuro ([facility]) WDL 06/26/2025 12:00 AM EST Edna Reeder, RN R Pupil Shape Round 06/26/2025 12:00 AM EST Edna Delatorre RN L Pupil Shape Round 06/26/2025 12:00 AM EST Edna Delatorre RN * Cardiac Question Answer Entry Date Author Cardiac ([facility]) WDL 06/26/2025 12:00 AM EST Edna Delatorre RN * Gastrointestinal Question Answer Entry Date Author Passing Flatus Yes 07/01/2025 4:00 AM EST Estelle Peña RN Abdominal Tenderness Tenderness 07/02/2025 8:00 AM Nela Escamilla RN Bowel Sounds (All Quadrants) Active 07/02/2025 8 :00 AM EST Nela Lebron RN Gastrointestinal ([facility]) X 07/02/2025 8:00 AM EST Nela Lebron RN Abdomen Inspection Distended 07/02/2025 8:00 AM EST Nela Lberon RN GI Symptoms Bloating 06/26/2025 9:25 PM EST Mariluz Hazel * Peripheral Vascular Question Answer Entry Date Author Peripheral Vascular ([facility]) X 2024 8:00 AM EST Nela Lebron RN Generalized Edema Non-pitting 07/02/2025 8:0 0 AM EST Nela Lebron RN RLE Edema +2 07/02/2025 8:00 AM EST Nela Lebron RN LLE Edema +2 07/02/2025 8:00 AM EST Nela Lebron RN Capillary Refill Less than/equal to 2 seconds (All extremities) 07/01/2025 4:20 PM EST Aixa Bolanos RN Pulses R radial;L radial;R pedal;L pedal 07/01/2025 4:20 PM EST Aixa Bolanos RN Cyanosis None 07/01/2025 4:20 PM EST Aixa Bolanos RN Edema Generalized;Right lo wer extremity;Left lower extremity 07/02/2025 8:00 AM EST Nela Lebron RN * RUE Neurovascular Assessment Question Answer Entry Date Author R Radial Pulse +2 07/02/2025 8:00 AM EST Nela Holland RN * LUE Neurovascular Assessment Question Answer Entry Date Author L Radial Pulse +2 07/02/2025 8:00 AM EST Nela Alegria RN * RLE Neurovascular Assessment Question Answer Entry Date Author R Pedal Pulse +1 07/02/2025 8:00 AM EST Nela Almendarez RN * LLE Neurovascular Assessment Question Answer Entry Date Author L Pedal Pulse +1 07/02/2025 8:00 AM EST Nela Almendarez RN * Musculoskeletal Details Question Answer Entry Date Author Trunk Full movement 06/26/2025 12:00 AM EST Edna Delatorre RN Upper Back Pain with movement 06/26/2025 12:00 AM Edna Ruby RN Lower Back Pain with movement 06/26/2025 12:00 AM Edna Ruby RN * Musculoskeletal Question Answer Entry Date Author RUE Full movement 07/01/2025 4:20 PM EST Aixa Bolanos RN RLE Swelling;Weakness 07/02/2025 8:0 0 AM Nela Putnam RN LUE Full movement 07/01/2025 4:20 PM EST Aixa Bolanos RN LLE Swelling;Weakness 07/02/2025 8:0 0 AM eNla Putnam RN Musculoskeletal (WDL) X 07/02/2025 8:00 AM EST Nela Lebron RN Musculoskeletal Additional Assessments Yes 06/26/2025 12:00 AM EST Edna Avila RN * Urine Assessment Question Answer Entry Date Author Urinary Incontinence No 07/02/2025 4:00 AM E Estelle Benavidez, RN * Psychosocial Question Answer Entry Date Author Psychological state Calm;Cooperative 07/02/2025 8:00 A M Nela Putnam RN Psychosocial (WDL) WDL 07/02/2025 8:00 AM EST Nela Lebron, RN * Unmeasured Output Question Answer Entry Date Author Unmeasured Urine Occurrence 300 06/30/2025 5: 52 AM EST Sabrina Schmidt * Intake Question Answer Entry Date Author P.O. 1000 06/30/2025 3:50 PM EST Nela Emerson, RN * Output (mL) Question Answer Entry Date Author Urine 500 07/02/2025 6:01 AM EST Oscar Chaney, CHAIN HOIST OPERATOR Urine Color Yellow/straw 07/02/2025 6:01 AM EST Oscar Chaney, CHAIN HOIST OPERATOR Urine Appearance Clear 07/02/2025 6:01 AM EST Oscar Lund, CHAIN HOIST OPERATOR Urine Odor No odor 06/27/2025 11:00 PM EST Johnny puentesDanelle W, CHAIN HOIST OPERATOR * Trinidad Fall Risk Question Answer Entry Date Author History of Falling, Immediat e or Within 3 Months 25 07/02/2025 8:00 AM Nela Putnam RN Secondary Diagnosis 15 07/02/2025 8:00 AM Nela Birch, it security consultant Aid 15 07/02/2025 8:00 AM EST Nela Alegria RN Intravenous Therapy/Heparin Lock 20 07/02/20 25 8:00 AM Nela Putnam RN Gait/Transferring 0 07/02/2025 8:00 AM Nela Putnam RN Mental Status 0 07/02/2025 8:00 AM EST Nela Almendarez RN [place] Fall Risk Score 75 07/02/2025 8:00 AM Nela Putnam, RN * Mando Scale Question Answer Entry Date Author Sensory Perceptions 3 07/02/2025 8:00 AM Nela Birch RN Moisture 4 07/02/2025 8:00 AM Nela Muhammad RN Activity 3 07/02/2025 8:00 AM EST Nela Emerson RN Mobility 3 07/02/2025 8:00 AM EST Nela Emerson RN Nutrition 3 07/02/2025 8:00 AM EST Nela Emerson RN Friction and Shear 3 07/02/2025 8:00 AM EST Nela Lebron RN Mando Scale Score 19 07/02/2025 8:00 AM EST Nela Lebron RN * BSA (Calculated - sq m) Answer Entry Date Author 2.05 07/02/2025 8:00 AM EST Jazmín Hwang RD * Pain Location Answer Entry Date Author Abdomen;Neck 07/02/2025 8:19 AM EST Aruna Lebron RN * Pain Orientation Answer Entry Date Author Right;Lower;Posterior 07/02/2025 8:19 AM EST Nela Alegria RN * Cardiac Question Answer Entry Date Author Cardiac (WDL) WDL 07/02/2025 8:00 AM EST Nela Almendarez RN Cardiac Regularity Regular 07/01/2025 4:20 PM EST Aixa Bolanos RN Heart Sounds S1, S2 07/01/2025 4:20 PM EST Aixa Haider RN Telemetry/Terrazzo Journeyman No 07/02/2025 8:00 AM EST Nela Lebron RN Jugular Venous Distention (JVD) No 4:20 PM EST Aixa Bolanos RN Cardiac Symptoms None 07/01/2025 8:00 PM EST F Estelle salter RN * Respiratory Question Answer Entry Date Author Bilateral Breath Sounds Clear;Diminished 025 8:00 AM EST Nela Lebron RN Respiratory Pattern Regular 07/02/2025 8 :00 AM EST Nela Lebron RN Chest Assessment Symmetrical;Chest expansion symmetrical 07/01/2025 4:20 PM EST Aixa Bolanos RN Cough Dry;Non-productive 06/27/2025 4: 00 PM EST Tracy Quigley RN Respiratory (WDL) X 07/02/2025 8:0 0 AM EST Nela Lebron RN Respiratory Effort Unlabored 07/02/2025 8: 00 AM EST Nela Lebron RN Respiratory Depth/Rhythm Regular 025 8:19 AM Aixa Sabillon, CORWIN Dyspnea Occurrence At rest 07/01/2025 8: 19 AM Aixa Sabillon RN * Vitals Question Answer Entry Date Author Raji src Oral 07/02/2025 12:10 PM EST Cestaric, Sara M, CHAIN HOIST OPERATOR Resp 16 07/02/2025 12:10 PM EST Cestaric, Sara M, CHAIN HOIST OPERATOR BP Location Left arm 07/02/2025 12:10 PM EST Cestaric, Sara M, CHAIN HOIST OPERATOR BP Method Automatic 07/02/2025 12:10 PM EST Cestaric, Sara M, CHAIN HOIST OPERATOR Weight Method Standing scale 07/02/2025 6:01 AM Oscar Pearson CNA Pulse Oximetry Type Intermittent 06/30/2025 7 :28 AM Betzaida Cast Patient Activity During SpO2 Measurement At rest 06/30/2025 7:28 AM Betzaida Cast Oxygen Therapy None 07/02/2025 12:10 PM EST Cestaric, Sara M, CHAIN HOIST OPERATOR Patient Position Sitting 07/02/2025 12:1 0 PM EST Cestaric, Sara M, CHAIN HOIST OPERATOR * Point of Care Tests Question Answer Entry Date Author Blood Glucose Meter 160 07/01/2025 8:17 PM Oscar Carver CNA Name of Nurse Notified of Blood Glucose Results (First and Last) enrico n 07/01/2025 8:17 PM Oscar Pearson C NA Glucose Sample Retrieved From Finger stick 07/01/2025 8:17 PM Oscar Pearson CNA * Patient Information Question Answer Entry Date Author Primary Caregiver Self 06/26/2025 8:01 AM Betzaida Vivar Support System Immediate family 06/26/2025 8:01 AM Betzaida Vivar * Activities of Daily Living Question Answer Entry Date Author Functional Status Assistive device 06/26/2025 8:01 AM Betzaida Vivar Living Arrangements Family 06/26/2025 8:01 AM Betzaida Wilks Type of Residence Private residence 06/26/2025 8:01 AM Betzaida Vivar Current DME Provider Cpap with [employer]; rollator with [employer] 06/26/2025 8:01 AM Betzaida Vivar * Income Information Question Answer Entry Date Author Income Source Government aid 06/26/2025 8:01 AM EST Betzaida Subramanian * Advance Directives (For Healthcare) Question Answer Entry Date Author Advance Directive Patient does not hav e advance directive 06/26/2025 1:21 AM EST Mariluz Dawson Pre-existing DNR/DNI Order No 06/26 1:21 AM EST Mariluz Dawson Information Provided on Healthcare Directives No 06/26/2025 1:21 AM EST Mariluz Dawson Patient Requests Assistance No 06/26/2025 1:21 AM EST Mariluz Dawson * Nutrition Screen Question Answer Entry Date Author Difficulty Chewing or Swallowing No 06/26/20 1:22 AM EST Mariluz Dawson Burn, Pressure Injury, or No n-Healing Wound No 06/26/2025 1:22 AM EST Mariluz Dawson Home Tube Feeding or Total P arenteral Nutrition (TPN) No 06/26/2025 1:22 AM Mariluz Angela Food allergy, Hinduism, or Cultural nutrition needs No 06/26/2025 1:22 AM Mariluz Angela * Pain Descriptors Answer Entry Date Author Aching;Discomfort 07/02/2025 8:19 AM Nela Putnam RN * Pain Onset Answer Entry Date Author Ongoing 07/02/2025 8:19 AM Aruna Putnam RN * Pain Frequency Answer Entry Date Author Intermittent 07/02/2025 8:19 AM Aruna Putnam RN * Patient's Stated Pain Goal Answer Entry Date Author No pain 07/02/2025 8:19 AM Aruna Putnam RN * Trauma/Abuse Assessment Question Answer Entry Date Author Physical Abuse Denies 06/26/2025 1:21 AM EST Mariluz Lancaster Verbal Abuse Denies 06/26/2025 1:21 AM EST Mariluz Hazel * Values/Beliefs Question Answer Entry Date Author Cultural Requests During Hospitalization none 06/26/2025 1:21 AM Mariluz Angela Spiritual Requests During Hospitalization none 06/26/2025 1:21 AM Mariluz Angela Unable to assess No 06/26/2025 1:21 AM EST Eloisa joyner Mariluz * Genitourinary Question Answer Entry Date Author Genitourinary (WDL) WDL 07/02/2025 8:00 AM Nela Birch RN * Neurological Question Answer Entry Date Author Level of Consciousness Alert 4:20 PM Aixa Sabillon RN Orientation Level Oriented X4 07/01/2025 4:2 0 PM Aixa Sabillon RN Cognition Follows commands 07/01/2025 4:20 PM Aixa Sabillon RN Speech Clear 07/01/2025 4:20 PM Aixa Sabillon RN Neuro ([facility]) WD 07/02/2025 8:00 AM Nela Putnam RN Swallow Able to swallow ana lilia ds and liquids without difficulty 07/01/2025 4:20 PM Aixa Sabillon RN R Hand Grasp Moderate 07/01/2025 4:20 PM Aixa Sabillon RN L Hand Grasp Moderate 07/01/2025 4:20 PM Aixa Sabillon RN R Foot Dorsiflexion Moderate 07/01/2025 4 :20 PM Aixa Sabillon RN L Foot Dorsiflexion Moderate 07/01/2025 4 :20 PM Aixa Sabillon RN R Foot Plantar Flexion Moderate 4:20 PM Aixa Sabillon RN L Foot Plantar Flexion Moderate 4:20 PM Aixa Sabillon RN Neuro Symptoms None 07/01/2025 4:20 PM Aixa Sabillon RN Hand Grasp/Motor Function/Sensation Assessment Grasp;Dorsiflexion;Plan tar flexion 07/01/2025 4:20 PM Aixa Sabillon RN * Current Blood Glucose Answer Entry Date Author 205 06/30/2025 12:07 PM Nela Putnam RN * Insulin Instructions: Answer Entry Date Author No dose needed. 06/29/2025 5:47 PM Aruna Putnam RN * Current Blood Glucose Answer Entry Date Author 160 07/01/2025 8:27 PM Genevieve Hall RN * Insulin Instructions: Answer Entry Date Author No dose needed. 07/01/2025 8:27 PM Genevieve Hall RN * Safe Environment Question Answer Entry Date Author 37-Pin Connection [Bed and Wall] Yes 07/02/2025 1:00 PM EST CestaricKianaoe M, CHAIN HOIST OPERATOR Arm Bands On ID 07/02/2025 1:00 PM EST Cestaric, Sara M, CHAIN HOIST OPERATOR Side Rails/Bed Safety 2/4 07/02/2025 1:00 PM EST Cestaric, Sara M, CHAIN HOIST OPERATOR NonSkid Footwear On;Patient in bed 07/02/2025 1: 00 PM EST Cestaric, Sara M, CHAIN HOIST OPERATOR The Patient's Environment is Safe Yes 07/02/2025 1:00 PM EST Cestaric, Sara M, CHAIN HOIST OPERATOR Head of Bed Angle 30 06/28/2025 8:0 0 PM EST Meche Coreas, RN Bed Foot Left Rail Up State No 07/02/2025 5:00 AM EST Estelle Nguyen, RN Bed Head Right Rail Up State Yes 07/02/2025 5:00 AM EST Estelle Nguyen, RN Bed Head Left Rail Up State Yes 07/02/2025 5:00 AM EST Estelle Nguyen, RN Bed Foot Right Rail Up State No 07/02/2025 5:00 AM Estelle Hall, RN Bed Exit System Activate Status No 07/02/2025 5:00 AM Estelle Hall, RN Bed Brake State Yes 07/02/2025 5:00 AM Estelle Hall, RN Bed Low Height State Yes 07/02/2025 5:00 AM Estelle Hall, RN Chair Exit System Activate Status No 07/02/2025 1:00 PM EST Rosa Sara M, CHAIN HOIST OPERATOR * Fall Risk Interventions Question Answer Entry Date Author Safety Promotion/Fall Prevention activity supervised;clutter-free environment maintained;fall prevention program maintained;nonskid shoes/slippers when out of bed;room organization consistent;safety round/check completed 07/02/2025 1:00 PM EST Kiana Leeoe M, CHAIN HOIST OPERATOR Enhanced Safety Measures bed alarm set;education provided 07/02/2025 8:00 AM EST Nela Lebron, RN Toilet Every 2 Hours-In Advance of Need Yes 07/02/2025 1:00 PM EST MeletaKiana perezoe M, CHAIN HOIST OPERATOR Hourly Visual Checks Awake;In bed 07/02/2025 1:00 PM EST Kiana Leeoe Eloisa, CHAIN HOIST OPERATOR Room Door Open Yes 07/02/2025 1:00 PM EST Meletaric Sara M, CHAIN HOIST OPERATOR Gait Belt Used For Transfers Not applicable 07/01/2025 8:00 PM Estelle Hall RN Fall Bundle Components Call light within reach;Personal belongings within reach;Overbed table within reach;Bed in lowest position;Bed wheels locked;Non-skid footwear on if up in chair or ambulating 07/02/2025 1:00 PM EST Kiana Leeoe Eloisa, CHAIN HOIST OPERATOR * Mobility Question Answer Entry Date Author Range of Motion active ROM (range of motion) encouraged 07/02/2025 8:00 AM Nela Putnam RN Activity Management up ad michelle 07/02/2025 1 :00 PM Sara Rodriguez CHAIN HOIST OPERATOR Activity Assistance Provided independent 07/02/2025 1:00 PM Kiana Rodriguezoe Eloisa, CHAIN HOIST OPERATOR Assistive Device Utilized cane 07/02/2025 8:00 AM Nela Putnam RN Body Position weight shifting 07/02/2025 1:00 PM EST Kiana Leeoe Eloisa CHAIN HOIST OPERATOR VTE Prevention/Management SCDs (sequential compression devices) off 07/02/2025 8:00 AM Nela Putnam RN Head of Bed (HOB) Positioning HOB elevated 07/02/2025 1:00 PM EST Kiana Leeoe Eloisa CHAIN HOIST OPERATOR Distance Ambulated (ft) 100 07/01/20 7:49 AM Aixa Sabillon RN Ambulation Response Tolerated well 07/02/2025 1 :00 PM EST Kiana Leeoe Eloisa CHAIN HOIST OPERATOR Heels/Feet Foot of bed elevated 07/02/2025 1:00 PM EST Kiana Leeoe Eloisa, CHAIN HOIST OPERATOR Reason for Removing Anti-Embolism Device Ambulating 07/02/2025 4:00 AM Estelle Hall RN Positioning Frequency Able to turn self 07/02/20 25 1:00 PM EST Kiana Leeoe Eloisa CHAIN HOIST OPERATOR * Hygiene Question Answer Entry Date Author Bathing/Skin Care dressed/undressed;brennan ir washed;linen changed;moisturizer applied;shower 07/02/2025 6:03 AM Oscar Pearson CNA Skin Protection incontinence pads utilized;skin sealant/moisture barrier applied 07/02/2025 8:00 AM Nela Putnam RN Oral Care other (see comments) 07/01/2025 8:00 PM Estelle Hall RN Oral Care (Yes/No) No 07/01/2025 8: 00 PM Estelle Hall RN Hernandez Care Castile Wipes Used Perineum cleansed with soap/water prior 06/30/2025 11:00 AM Betzaida Cast * Precautions Question Answer Entry Date Author Isolation Precautions precautions maintained 8:00 AM Nela Putnam RN Precautions Fall risk;Environmen sarina surveillance 07/02/2025 1:00 PM Sara Rodriguez CNA * Family/Significant Other Communication Question Answer Entry Date Author Family/Significant Other Update Visiting 8:00 AM Tracy Weston RN * Telemetry Details Question Answer Entry Date Author Contour Grinder On No 07/02/2025 1:00 PM Sara Parish CNA * Comfort and Environment Interventions Question Answer Entry Date Author Warm [place] Applied 06/30/2025 11:00 AM Betzaida Cast Comfort Other (Comment) 07/01/2025 9:00 PM Estelle Hall RN Additional Comfort/Environmental Interventions Warm blanket 06/30/2025 11:00 AM Betzaida Cast * Miscellaneous Devices Question Answer Entry Date Author Daryl Wrap Care Skin assessed 07/01/2025 8:00 PM Estelle Adam RN Daryl Wrap Removed 07/01/2025 8:00 PM Estelle Hall RN * Safety Equipment at Bedside Question Answer Entry Date Author Standard Bedside Safety Ambu bags in hallway;Oxygen available and working;Suction available, setup and working 07/02/2025 1:00 PM Sara Rodriguez CNA Additional Bedside Safety Bed in locked and low position;Clutter free environment 07/02/2025 1:00 PM EST Cestaric, Sara M, CHAIN HOIST OPERATOR * Saline Flush (mL) Answer Entry Date Author 10 06/29/2025 12:26 AM EST Damon Nguyen RN * IBW/kg (Calculated) Male Answer Entry Date Author 59.24 07/02/2025 8:00 AM EST Jazmín Hwang RD * IBW/kg (Calculated) Female Answer Entry Date Author 54.74 07/02/2025 8:00 AM EST Jazmín Hwang RD * Consults Question Answer Entry Date Author Integrative Medicine Consult Needed No 06/26 1:21 AM EST [place], Mariluz Pastoral Care Consult Needed No 06/26/2025 1 :21 AM EST Samir, Mariluz Degreaser Operator Consult Needed No 06/26/2025 1:21 AM EST Samir Mariluz * Therapy Consults Question Answer Entry Date Author PT Evaluation Needed 2 06/26/2025 1:[address] [place], Mariluz OT Evaluation Needed 2 06/26/2025 1:[address] [place], Mariluz TANDEM MILL OPERATOR Evaluation Needed 2 06/26/2025 1:20 AM EST [place], Mariluz * Assistive Devices Question Answer Entry Date Author Assistive Devices Cane 06/26/2025 1:20 AM EST [place], Mariluz * End of Shift Review Question Answer Entry Date Author Shift Review Complete Yes 07/02/2025 7:00 AM Nela Putnam RN Shift Report Received From CORWIN Mccabe 07/02/2025 7:00 AM Nela Putnam RN Shift Report Given To Nela Huston RN 07/02/20 7:00 AM Nela Putnam RN * Hourly Rounding Question Answer Entry Date Author Hourly Rounding Complete Per Guideline Yes 07/02/2025 1:00 PM EST Cestaric, Sara M , CHAIN HOIST OPERATOR * Patient Violence Risk Assessment Question Answer Entry Date Author History of Violence: In the past 12 hours has the PATIENT exhibited any of the following? None 07/02/2025 8:00 AM Nela Putnam RN Potential for Violence: In the past 12 hours has the PATIENT exhibited any of the following? None 07/02/2025 8:00 AM EST Nela Lebron RN Risk No identified risk 07/02/2025 8: 00 AM EST Nela Lebron RN History of Violence: In the past 12 hours has a PARTNER IN CARE of the patient exhibited any of the following? None 07/02/2025 8:00 AM EST Nela Lebron, CORWIN * Mobility Question Answer Entry Date Author Ambulation Stand by 07/02/2025 8:00 AM EST Nela Emerson RN * Airway Question Answer Entry Date Author Airway ([facility]) [facility] 06/25/2025 5:49 PM EST Misty Ortiz RN * Breathing Question Answer Entry Date Author Breathing ([facility]) [facility] 06/25/2025 5:49 PM EST Misty Harrison RN * Circulation Question Answer Entry Date Author Circulation ([facility]) [facility] 06/25/2025 5:49 PM EST Misty Ortiz RN * Disability Question Answer Entry Date Author Disability ([facility]) [facility] 06/25/2025 5:49 PM EST Misty Christine RN * Restart Vitals Timer Answer Entry Date Author Yes 07/02/2025 12:10 PM EST Cestaric , Sara M, CHAIN HOIST OPERATOR * IBW/kg (Calculated) Answer Entry Date Author 54.74 07/02/2025 8:00 AM EST Jazmín Hwang RD * STOP-Bang Questionnaire Question Answer Entry Date Author Do you snore loudly? 1 06/26/2025 2:00 AM E Mariluz Bennett Do you often feel tired or f atigued after your sleep? 1 06/26/2025 2:00 AM EST Mariluz Dawson Has anyone ever observed you stop breathing in your sleep? 1 06/26/2025 2:00 AM EST Cecelia Dawson Do you have or are you being treated for high blood pressure? 1 06/26/2025 2:00 AM Xiomara Angelayla Is BMI greater than 35 kg/m2? 1=Yes 06/26/2025 2:00 AM EST Mariluz Dawson Age older than 50 years old? 1=Yes 06/26/2025 2 :00 AM EST Juan C Dawsona Is your neck circumference g reater than 17 inches (Male) or 16 inches (Female)? 0 06/26/2025 2:[address] DavidSamirMariluz Gender - Male 0=No 06/26/2025 2:00 AM EST Abhay Mariluz soares STOP-Bang Total Score 6 06/26/2025 2:00 AM EST [place]Xi[place]araMariluz Recent BMI (Calculated) 36.4 06/26/2025 2:00 A M EST Samir Mariluz * HARK Concern Calculation Answer Entry Date Author 1 06/26/2025 8:03 AM EST Catia, Ol ivia * Food Insecurity Concern Calculation Answer Entry Date Author 1 06/26/2025 8:03 AM EST Catia, Ol ivia * Transportation Needs Concern Calculation Answer Entry Date Author 1 06/26/2025 8:03 AM EST Catia, Ol ivia * Housing Stability Concern Calculation Answer Entry Date Author 1 06/26/2025 8:03 AM EST Catia, Ol ivia * Utilities Concern Calculation Answer Entry Date Author 1 06/26/2025 8:03 AM EST Catia, Ol ivia * Calculated C-SSRS Risk Score (Lifetime/Recent) Answer Entry Date Author No Risk Indicated 07/02/2025 8:00 AM Nela Putnam RN * Michael Coma Scale Question Answer Entry Date Author Best Eye Response Spontaneous 07/02/2025 8:00 AM Nela Putnam RN Best Verbal Response Oriented 07/02/2025 8:00 AM Nela Escamilla RN Best Motor Response Follows commands 07/02/2025 8:00 A M Nela Putnam RN [place] Coma Scale Score 15 07/02/2025 8:00 AM Nela Putnam RN * Care Handoff Question Answer Entry Date Author Handoff Received From Edna OLIVIA 06/26/2025 12:58 AM Edna Hicks RN * Restart Pain Assessment Timer Answer Entry Date Author Yes 07/02/2025 9:19 AM Aruna Putnam RN * KINDER 1 Fall Risk Factor Assessment Question Answer Entry Date Author Presented to ED because of fall 0 5:49 PM Misty Palomares RN Age > 70 0 06/25/2025 5:49 PM Misty Palomares RN Intoxicated with alcohol or substance confusion 0 06/25/2025 5:49 PM Misty Palomares R N Ambulates or transfers with assistive devices or assist 0 06/25/2025 5:49 PM Nikko Palomares RN Unable to ambulate or transfer 0 06/25/2025 5:49 PM Misty Palomares RN Nursing judgement 0 06/25/2025 5:49 PM Misty Palomares RN KINDER 1 Fall Risk Score 0 06/25/2025 5:49 PM Misty Palomares RN * Douglas Suicide Severity Rating Scale Question Answer Entry Date Author Is patient awake, alert, and able to answer questions appropriately? Yes 06/25/2025 5:49 PM Misty Palomares RN * Patient Belongings Placed in Locker Question Answer Entry Date Author Belongings at Bedside Retained by bruce bella and/or family/legal u.s. representative who assumes responsibility 06/25/2025 7:20 PM Misty Palomares RN * Weight in (lb) to have BMI = 25 Answer Entry Date Author 145.4 07/02/2025 8:[address] * BMI (Calculated) Answer Entry Date Author 35.1 07/02/2025 8:[address] * Percent Excess Weight Loss Answer Entry Date Author 0 07/02/2025 8:[address] * Weight Change Since Preop Answer Entry Date Author 92.67 07/02/2025 8:[address] * Initial Excess Weight Answer Entry Date Author -54.47 07/02/2025 8:[address] * IBW in kg (Bariatric) Answer Entry Date Author 54.47 07/02/2025 8:[address] * IBW in lb (Bariatric) Answer Entry Date Author 120.08 07/02/2025 8:[address] * Weight Change Since Last Visit Answer Entry Date Author 0 07/02/2025 8:00 AM EST Jazmín Hwang, RD * Percent of IBW Answer Entry Date Author 170.14 07/02/2025 8:00 AM EST Jazmín Hwang RD * EBW (kg) Answer Entry Date Author 38.18 07/02/2025 8:00 AM EST Jazmín Hwang RD * EBW (lb) Answer Entry Date Author 84.22 07/02/2025 8:00 AM EST Jazmín Hwang, RD * Difference in Weight Since Last Visit Answer Entry Date Author 0 07/02/2025 8:00 AM EST Jazmín Hwang, RD * Housing Circumstances-Z Codes Question Answer Entry Date Author Housing Circumstances (selec t all that apply) Low Income (101-300% Federal Poverty Guidlines) - Z596 06/26/2025 8:01 AM EST Betzaida Bardales * Pain Type Answer Entry Date Author Acute pain 07/02/2025 8:19 AM EST Aruna Lebron RN * Clinical Progression Answer Entry Date Author Gradually improving 07/02/2025 8:19 AM EST Nela Emerson RN * Anthropometrics Question Answer Entry Date Author Height 64.016 07/02/2025 8:00 AM EST Jazmín Connor, RD Weight 3268.8 07/02/2025 8:00 AM EST Jazmín Connor, RD BMI (Calculated) 35.05 07/02/2025 8:00 AM EST Jazmín Cueva, RD Weight Change 0 07/02/2025 8:00 AM EST Jazmín Shepherd, RD * Temp (in Celsius) for TAZLINA IV Answer Entry Date Author 36.7 07/02/2025 12:10 PM EST Sara Lee CHAIN HOIST OPERATOR * Pain Assessment Question Answer Entry Date Author Patient is asleep Yes, assume pain is decreased 06/26/2025 5:47 PM EST Edna Rebolleod, CORWIN Pain Score 5 07/02/2025 9:19 AM EST Nela Lebron RN Pain Assessment 0-10 (Adult DVPRS/Pe ds 0-10) 07/02/2025 9:19 AM Nela Putnam RN * Nutrition Question Answer Entry Date Author Diet Type Regular;Consistent Carb 2 07/02/2025 1:00 PM EST Sara Lee, CHAIN HOIST OPERATOR Feeding Able to feed self 07/02/2025 1:00 PM EST Sara Lee, CHAIN HOIST OPERATOR * IBW/kg (Calculated) Answer Entry Date Author 54.74 07/02/2025 8:00 AM EST Jazmín Hwang G, RD * Adult Low Range Vt 6mL/kg Answer Entry Date Author 328.44 07/02/2025 8:00 AM EST Rodrigo Hwangyn G, RD * Adult Moderate Range Vt 8mL/kg Answer Entry Date Author 437.92 07/02/2025 8:00 AM EST Jazmín Hwang G, RD * Adult High Range Vt 10mL/kg Answer Entry Date Author 547.4 07/02/2025 8:00 AM EST Jazmín Hwang, RD * Respiratory Interventions Question Answer Entry Date Author Respiratory Interventions Cough and deep breathing 07/02/2025 8:00 AM Nela Putnam RN * Cough and Deep Breathe Question Answer Entry Date Author Cough And Deep Breathing done independently per patient 07/02/2025 8:00 AM Nela Putnam RN * Integumentary Question Answer Entry Date Author Skin Color Jaundice;Ecchymosis 07/02/2025 8 :00 AM Nela Putnam RN Skin Condition/Temp Dry 07/02/2025 8 :00 AM Nela uPtnam RN Skin Integrity Blister;Bruising;Exc oria tion;Redness 07/02/2025 8:00 AM Nela Putnam RN Skin Turgor Epidermis thin with loss of subcutaneous tissue 07/01/2025 4:20 PM Aixa Sabillon RN 4 Eyes Skin Assessment Completed Yes 07/02/2025 4:00 AM Estelle Hall RN Manual Dual Sign Off 2nd CORWIN Martinez RN 06/12 4:00 AM Estelle Hall RN Skin Tone Light 07/01/2025 4:20 PM Aixa Sabillon RN Bruising Characteristics scattered 12/22/2 025 8:00 AM Nela Putnam RN Integumentary (WDL) X 07/02/2025 8 :00 AM Nela Putnam RN Redness Location Manfred cleft 07/01/2025 8:00 PM Estelle Hall RN Redness Characteristics Blanchable/heale d wound present 07/01/2025 8:00 PM Estelle Hall RN Blister Location Right 2nd toe 07/01/2025 8:00 PM Estelle Hall RN Blister Characteristics Purple 07/01/20 8:00 PM Estelle Hall RN * Skin Assessment Question Answer Entry Date Author Scale Used Mando 06/26/2025 1:[address] ckJuan Ca * Score Answer Entry Date Author 29.06 07/02/2025 1:30 PM EST ChrisJimmy luna A * Confusion Assessment Method (CAM) Question Answer Entry Date Author Acute Onset and Fluctuating Course (1A) No 07/02/2025 8:00 AM Nela Putnam RN * Feature 3: Altered Level of Consciousness Answer Entry Date Author Negative 07/02/2025 8:00 AM Aruna Putnam RN * Sedation Scales Question Answer Entry Date Author Sedation Scale Used Pasero Opioid-induce d Sedation Scale 07/02/2025 8:00 AM Nela Putnam RN RASS 0 07/02/2025 8:00 AM Nela Putnam RN Pasero Opioid-Induced Sedation Scale (POSS) 1 07/02/2025 8:00 AM Nela Putnam RN * Urine Output/Assessment Question Answer Entry Date Author Urine Amount Medium 07/02/2025 12:00 AM Estelle Silva RN * Stool Output/Assessment Question Answer Entry Date Author Most Recent BM Date [address] 07/02/2025 10:30 AM Nela Escamilla RN Unmeasured Stool Occurrence (hourly total) 1 07/02/2025 10:30 AM Nela Putnam RN Stool Color Brown 07/02/2025 10:30 AM Nela Chase RN Stool Amount Large 07/02/2025 10:30 AM Nela Chase RN Stool Appearance Loose 07/02/2025 10:30 AM Nela Putnam RN Bowel Incontinence No 07/02/2025 10:30 AM Nela Birch RN Loíza Stool Assessment [place] 06/29/2025 10:49 PM Estelle Hall RN * Fall Risk Calculated Score Answer Entry Date Author Vivi High 07/02/2025 8:00 AM Aruna Putnam RN * Patient Specific Goals Question Answer Entry Date Author Patient/Family-Specific Goals (Include Timeframe) pt will remain free from harm during shift 07/02/2025 8:00 AM Nela Putnam RN Individualized Care Needs safety 2024 8:00 AM Nela Putnam RN Anxieties, Fears or Concerns none stated 8:00 AM Nela Putnam RN * Delirium Assessment Question Answer Entry Date Author Delirium Prevention & Management Yes 07/02/2025 4:00 AM Estelle Hall RN Delirium Prevention & Management: Early Mobility Ambulate to extent of patient's ability;Up to chair for meals;Out of room if possible;Educate patient and family about the benfits of early mobility in the hospital 07/02/2025 4:00 AM Estelle Hall RN Delirium Prevention & Management: Cognitive Engagement Familiar objects from home provided;Familiar social contact provided;Puzzle books or other stimulation provided;Provide glasses and hearing aids;Reorienting communication;Optimize pain and other medication management;Emotional support provided;Environmental consistency promoted;Delirium prevention education provided to patient and family 07/02/2025 4:00 AM Estelle Hall RN Delirium Prevention & Management: Optimize Sleep/Wake Cycles Calming techniques provided;Lighting decreased at night;Encourage TV off at night;Environmental noise reduced at night;Bedtime routine promoted;Cluster care to decrease awakenings;Educate patient and family about optimizing sleep 07/02/2025 4:00 AM Estelle Hall RN Delirium Scale Used Confusion Assessment Method 07/02/2025 8:00 AM Nela Putnam RN * Follow Up Question Answer Entry Date Author Next [place] [address] 07/02/2025 12:41 PM EST Jarek Hwang, RD * Deterioration Index Score Question Answer Entry Date Author Deterioration Index Score 19.21 07/02/2025 1:16 PM EST Chronicchrissie, Batchq * Unplanned Readmission Scores Question Answer Entry Date Author Unplanned Readmission Score 28.79 07/02/2025 12 :01 PM EST Chronicles, Batchq * PRN Medication Given Reason Answer Entry Date Author pain 06/28/2025 10:08 PM EST Meche Coreas RN * Discharge Medication Bedside Delivery Question Answer Entry Date Author Meds to Beds Complete? Yes 12:56 PM Yaakov Melendez CPhT Current Status Pickup Prescriptions [facility] pharmacy 07/02/2025 12:56 PM Yaakov Melendez CPhT Is the patient interested in Medication Bedside Delivery at Discharge? Yes, confirmed by pharmacy 06/26/2025 10:54 AM EST Ronald Bravo CPhT * Michael Coma Scale Numeric Answer Entry Date Author 15 07/02/2025 8:00 AM EST Aruna Lebron RN * Elevate heels task - custom formula Answer Entry Date Author 1 07/02/2025 4:00 AM EST Genevieve Nguyen RN * Vitals Timer Question Answer Entry Date Author Restart Vitals Timer Yes 07/02/2025 12:10 PM EST Sara Lee CNA * Communication Question Answer Entry Date Author Floor Staff Notification Method Regular call 1:51 AM EST Alicia Bridges * Elopement Risk Screen Question Answer Entry Date Author Does the patient exhibit any of the following behaviors? No 07/02/2025 8:00 AM Cody Putnam RN Does the patient have a cour t ordered legal guardian? No 07/02/2025 8:00 AM Maria Putnam RN * C-SSRS (Frequent Screener) Question Answer Entry Date Author Is patient awake, alert, and able/willing to answer questions appropriately? Yes 07/02/2025 8:00 AM Nela Putnam RN 1. Wish to be (Past 1 Month) No 025 8:00 AM Nela Putnam RN 2. Non-Specific Active Suici josh Thoughts (Past 1 Month) No 07/02/2025 8:00 AM EST Maria Lebron RN 6. Suicidal Behavior (Lifetime) No 8:00 AM EST Nela Lebron RN * Discharge Planning Continued Question Answer Entry Date Author Transportation Home at Discharge Family/Friend will Provide 06/26/2025 8:02 AM EST Betzaida Bardales * [facility] 6-Clicks Mobility Assessment Question Answer Entry Date Author Difficulty patient has turni ng over in bed (including adjusting bedclothes, sheets, and blankets)? 4 06/26/2025 1:20 AM EST aMriluz Dawson Difficulty patient has sitti ng down on and standing up from a chair with arms (wheelchair, bedside commode, etc.)? 4 06/26/2025 1:20 AM EST Mariluz Dawson Difficulty patient has movin g from lying on back to sitting on the side of the bed? 4 06/26/2025 1:20 AM EST Mariluz Dawson How much help does the patie nt need moving to and from a bed to a chair (including a wheelchair)? 4 06/26/2025 1:20 AM EST Xiomara Dawson How much help does the patie nt need to walk in hospital room? 4 06/26/2025 1:20 AM EST Mariluz Dawson How much help does the patie nt need climbing 3-5 steps with a railing? 3 06/26/2025 1:20 AM EST Mariluz Crenshaw [facility] 6-Clicks Mobility Assessment Total 23 06/26/2025 1:20 AM EST Mariluz Dawson documented in this encounter Discharge Instructions * Discharge Instructions* Alison Burns MD - 07/02/2025 12:23 PM EST Please continue your previous insulin regimen. Please titrate lactulose to keep 3- 5 BM/day. Please take 30 gm ( 45 ml) three times daily, if you have constipation, you may titrate it up to 30 gm ( 45 ml ) 6 times daily. If you have diarrhea , you may decrease it to 20 gm ( 30 ml) three times daily . If you still have diarrhea, you may decreaseit to 10 gm ( 15 ml ) three times daily. Medications changes: -stop taking lisinopril. -please decrease taking metoprolol to 25 mg daily. -change taking requip ( ropinirole to 2 mg ) at bedtime. -change taking lyrica to bedtime only. -change taking iron tabs to every other day. -please continue bumex 2 mg twice daily. ( One in the morning and 3 pm ). -continue spironolactone 100 mg daily. If you gain more than 3 lbs in a day or more than 5 lbs in aweek, take extra spironolactone 100 mg at 3 pm. Follow up need -follow up with your PCP and GI clinic as scheduled. -please recheck labs at your local place next week Wednesday. Diet recommendations -please continue fluid restriction < 1800 ml/day -please continue high protein diet ( at least 115 gm/day ) -please continue less than 2 gm solidum diet. documented in this encounter Medications at Time [...] pain). 03/24/2022 ergocalciferol (Vitamin D-2) 1.25 MG (14792 UT) capsule Take 1 capsule by mouth [...] 2 times a day. 60 tablet 07/02/2025 metoprolol succinate XL (Toprol-XL) 50 MG 24 [...] wt > 3 lbs 30 each 07/02/2025 valACYclovir (Valtrex) 500 MG tablet Take 1 tablet by mouth every morning. zinc sulfate (Zincate) 220 (50 Zn) MG capsuleIndicatio ns:End-stage liver disease (CMS/HCC) Take 1 capsule by mouth 2 times a day. 240 capsule 2 05/18/2025 6 documented as of this encounter Miscellaneous Notes * Progress Notes - Betzaida Bardales - 07/02/2025 12:32 PM EST Case Management Discharge Note Avis Pemberton 54 y.o. female CSN: [id number] Admission: 06/25/2025 4:58 PM Primary Problem: KENDRA (acute kidney injury) Primary Bar Tender: Primary Caregiver: Self Assistance Available at Discharge: Current Outpatient/Agency/Support Group: clinic(s), DME Availability of Care Givers (#Hours): 24 hours Family/Bar Tender(s) Willingness Assessed to care for patient at home: Yes Family/Bar Tender(s) Readiness Assessed to care for patient at home: Yes Housing Circumstances-Z Codes: Housing Circumstances (select all that apply): Low Income (101-300% Federal Poverty Guidlines) - Z596 Discharge Facility/Level of Care Needs: Discharge Facility/Level of Care Needs: 1-Home or Self Care Patient/Family Anticipated Services at Transition: Patient/Family Anticipated Services at Transition: durable medical equipment DME/Equipment Needed after Discharge: Equipment Currently Used at Home: Cpap, walker, rollator Equipment Needed After Discharge: Cpap, walker, rollator Readmission Within the Last 30 Days: Readmission Within the Last 30 Days: unable to assess Follow-up: No follow-up provider specified. Discharge Transportation: Transportation Anticipated: family or friend will provide Transportation Home at Discharge: Family/Friend will Provide Follow Up Transport: Transportation Needed to Follow up Appoinments: Family/Friend will Provide Additional Comments: Per provider, patient is medically ready. Patient has no known SW CM needs. Betzaida Bardales * Discharge Summary - Alison Burns MD - 07/02/2025 12:23 PM EST Hospitalization Admit Date/Time: 06/25/2025 4:58 PM Admitting Attending: Alison Burns Discharge Date: 07/02/25 Discharge Attending Physician: Alison Burns MD PCP name [place] Address: [place] [id number] Referring provider name and address: No referring provider defined for this encounter. Post Discharge Instructions Please continue your previous insulin regimen. Please titrate lactulose to keep 3- 5 BM/day. Please take 30 gm ( 45 ml) three times daily, if you have constipation, you may titrate it up to 30 gm ( 45 ml ) 6 times daily. If you have diarrhea , you may decrease it to 20 gm ( 30 ml) three times daily . If you still have diarrhea, you may decreaseit to 10 gm ( 15 ml ) three times daily. Medications changes: -stop taking lisinopril. -please decrease taking metoprolol to 25 mg daily. -change taking requip ( ropinirole to 2 mg ) at bedtime. -change taking lyrica to bedtime only. -change taking iron tabs to every other day. -please continue bumex 2 mg twice daily. ( One in the morning and 3 pm ). -continue spironolactone 100 mg daily. If you gain more than 3 lbs in a day or more than 5 lbs in aweek, take extra spironolactone 100 mg at 3 pm. Follow up need -follow up with your PCP and GI clinic as scheduled. -please recheck labs at your local place next week Wednesday. Diet recommendations -please continue fluid restriction < 1800 ml/day -please continue high protein diet ( at least 115 gm/day ) -please continue less than 2 gm solidum diet. Chief Concern, Brief History of Present Illness, and Hospital Course Avis Pemberton is a 54-year-old female with a history of decompensated cirrhosis, congestive heart failure, hypertension, type 2 diabetes mellitus, chronic pain, and anxiety/depression who was admitted on 06/25/2025 for evaluation of hypotension and acute kidney injury following an albumin infusion as part of her liver transplant workup. PROBLEM-ORIENTED HOSPITAL SUMMARY Acute Kidney Injury (KENDRA) Generalized Anasarca She presented with KENDRA (baseline creatinine 0.9-1.0 mg/dL, admission creatinine 1.54 mg/dL) and generalized anasarca after receiving 68.75 g of albumin at an infusion clinic, which was stopped due tohypotension and lightheadedness. She was clinically hypervolemic on admission, with increased leg swelling and weight gain from a baseline of 205 lbs to 213 lbs. Diuretics were initially held, then bumetanide was resumed and titrated, resulting in improved urine output and reduction in weight and edema. Spironolactone was held during the acute phase and later resumed as her renal function improved. Renal function trended down to creatinine 1.09 mg/dL by discharge. Strict fluid restriction (1800mL/day) and I&O monitoring were maintained. Decompensated Cirrhosis and Liver Transplant Evaluation - follows with [facility] - MELD 23 ( 08/26/24) - Ascites:Paracentesis Hx - 06/15, drained 3L . Home bumex 2 mg BID , spironolactone 100 mg BID. Already arranged for para at local place. - HE: HE not present on admission. Lactulose & Rifaximin (insurance did not cover) , Zinc - EV: EGD, : non-obstructing schatzki ring, 2 cm hiatal hernia, non bleeding GAVE s/p APC; metoprolol . Hold metoprolol in the setting of KENDRA. - HCC: q.6 months, AFP: 5.9 on 05/28; US liver 04/2024: without focal lesion. mRI abdomen - no focal lesion. -Transplant candidacy : not socially cleared yet. Needs to see psych in Jul -consulted GI and liver transplant. Plan -discharged with bumex 2 mg BID and spironolactone 100 mg daily -decreased home metoprolol to 25 mg given soft BP. - 2g Na+ 2CC diet - No NSAIDs -FU with transplant on 07/17. Stercoral Colitis During admission, she developed new-onset abdominal pain and was found on CT to have stercoral colitis with intramural gas but no evidence of perforation or mesenteric ischemia. She was managed with bowel rest, aggressive bowel regimen (including enemas and suppositories), and a brief course of IV piperacillin- tazobactam, which was discontinued as her symptoms improved and infection was not suspected. She had multiple bowel movements after intervention, with resolution of pain and normalizationof diet prior to discharge. Surgery and gastroenterology were consulted, and no surgical intervention was required. Hypotension - Asymptomatic. Has soft BP at baseline. No s/s of sepsis or infection. -stopped home lisinopril and decreased metoprolol to 25 mg. Thrombocytopenia and Anemia She had chronic thrombocytopenia (platelets 34-57) and anemia (hemoglobin 9.0- 10.5), both attributed to cirrhosis and splenomegaly. No transfusions were required during this admission. Type 2 Diabetes Mellitus Her home regimen included Ozempic and Jardiance, both of which were held during hospitalization. She was managed with insulin sliding scale, with A1c 5.4%. Hypertension Home antihypertensives included metoprolol, lisinopril, and spironolactone. Lisinopril was discontinued at discharge, and metoprolol was reduced to 25 mg daily. Spironolactone was resumed as renal function improved. Chronic Pain, Neuropathy, and Restless Legs She continued home medications for chronic pain, neuropathy, and restless legs, with pregabalin andropinirole dosing adjusted at discharge. Anxiety and Depression She continued home buspirone and desvenlafaxine throughout hospitalization. GERD, Hyperlipidemia, Obesity She continued home lansoprazole for GERD. Obesity (BMI ~35-36) complicated her care but did not preclude transplant evaluation. Iron Deficiency Anemia Iron supplementation was continued, with dosing changed to every other day at discharge. Discharge Plan At discharge, she was stable, with improved volume status, resolution of abdominal pain, and normalization of bowel function. She was instructed to continue fluid and sodium restriction, high-proteindiet, and to follow up with her PCP, GI, and transplant teams. Medication adjustments at discharge included discontinuation of lisinopril, reduction of metoprolol, and changes to ropinirole, pregabalin, and iron dosing. She was advised to monitor weight and adjust spironolactone as needed for fluidretention. Surgeries and Procedures-none Medication List PAUSE taking these medications insulin glargine 100 UNIT/ML injection vial Wait to take this until your doctor or other care provider tells you to start again. Please resume 10 unit daily taking if your BG Is persistently high above 200. Commonly known as: Lantus Inject 10 Units under the skin every morning. If blood sugar is greater than 150 .. rOPINIRole 1 MG tablet Commonly known as: Requip Take 2 tablets by mouth nightly. The timing of this medication is very important. acetaminophen 500 MG tablet Commonly known as: Tylenol Take 1 tablet by mouth every 8 hours as needed for pain. bumetanide 2 MG tablet Commonly known as: Bumex Take 1 tablet by mouth 2 times a day. busPIRone [...] a day as needed (joint pain). ergocalciferol 1.25 MG (40654 UT) capsule Commonly known as: Vitamin D-2 Take 1 capsule by mouth 1 time per week. Take on Wednesday FeroSul 325 (65 Fe) MG tablet Generic drug: ferrous sulfate Take 1 tablet by mouth every other day. hydrOXYzine pamoate 25 MG capsule Commonly known as: Vistaril Take 1 capsule by mouth as needed for itching. insulin aspart 100 UNIT/ML injection vial Commonly known as: NovoLOG Inject under the skin 3 (three) times daily with meals per correction scale as follows: blood tkida021-820 use 1 unit, 200-249 use 2 units, 250-299 use 3 units, 300-349 use 4 units, 350-399 use 5 units, >399 use 6 units and call provider. Max daily dose 50 units. Jardiance 25 MG Generic drug: empagliflozin Take 1 tablet by mouth daily. lactulose 10 GM/15ML oral solution Commonly known as: Chronulac Take 45 mL by mouth 3 times a day. You may increase it to 30 gm ( 45 ml ) 6 times daily if you haveconstipation or slowly decrease it to 10 gm ( 15 ml ) three times daily if you have diarrhea. lansoprazole [address] capsule Commonly known as: Prevacid Take 1 capsule by mouth daily. magnesium oxide 400 (240 Mg) MG tablet Commonly known as: Mag-Ox Take 1 tablet by mouth 2 times a day. metoprolol succinate XL 50 MG 24 hr tablet Commonly known as: Toprol-XL Take 0.5 tablets by mouth every morning. Do not crush or chew. NURTEC PO Take 1 tablet by mouth as needed. ondansetron 8 MG tablet Commonly known as: Zofran Take 1 tablet by mouth every 8 hours as needed for nausea or vomiting. oxyCODONE 5 MG immediate release tablet Commonly known as: Roxicodone Take 1.5 tablets by mouth 3 times a day. Ozempic (1 MG/DOSE) 4 MG/3ML solution pen-injector Generic drug: Semaglutide (1 MG/DOSE) Inject 1 mg under the skin 1 time per week. pregabalin 25 MG capsule Commonly known as: Lyrica Take 1 capsule by mouth nightly. promethazine 25 MG tablet Commonly known as: Phenergan Take 1 tablet by mouth every 6 hours as needed for nausea or vomiting. spironolactone 100 MG tablet Commonly known as: Aldactone Take 1 tablet by mouth daily. May take extra pill at 3 pm with bumex if you gain wt > 3 lbs valACYclovir 500 MG tablet Commonly known as: Valtrex Take 1 tablet by mouth every morning. zinc sulfate 220 (50 Zn) MG capsule Commonly known as: Zincate Take 1 capsule by mouth 2 times a day. Where to Get Your Medications These medications were sent to [facility] - [place] [id number] [address] bumetanide 2 MG tablet These medications were sent to [facility] - [place] [id number] [address] acetaminophen 500 MG tablet lactulose 10 GM/15ML oral solution magnesium oxide 400 (240 Mg) MG tablet spironolactone 100 MG tablet Information about where to get these medications is not yet available Ask your nurse or doctor about these medications FeroSul 325 (65 Fe) MG tablet metoprolol succinate XL 50 MG 24 hr tablet pregabalin 25 MG capsule rOPINIRole 1 MG tablet Discharge Diagnosis Medical Problems Active and Resolved Hospital Problems Hospital Anxiety and depression Type 2 diabetes mellitus GERD (gastroesophageal reflux disease) Hyperlipemia Obesity Essential hypertension Iron (Fe) deficiency anemia Congestive heart failure * (Principal) KENDRA (acute kidney injury) Hypotension, unspecified hypotension type Outpatient Follow-Up Future Appointments Date Time Provider Department Center 07/17/2025 8:45 AM [facility]ANSPL[facility] 07/17/2025 10:30 AM Nj Johns MD [facility] 07/24/2025 1:00 PM Lesia Cervantes MD [id number] Antoine Cou Test Results Pending At Discharge Pertinent Physical Exam At Time of Discharge Physical Exam Physical Exam GENERAL:Alert and orientated, cooperative, in no acute distress. HEENT:Normal conjunctiva, no scleral icterus, mucous membranes- moist, no oral thrush, no sinus tenderness. CVS:Regular rhythm, normal rate, normal S1/S2, no murmur. RESPIRATORY: Normal breath sounds,clear on auscultation, no wheezing or rales. GASTROINTESTINAL:Normal BS. Abdomen-soft, non tender and distended. MUSCULOSKELETAL:Extremities symmetric , + 1 bilateral pedal edema INTEGUMENTARY:Warm, no rashes or cyanosis. NEUROLOGIC:Non-focal. Cranial nerves II-XII grossly intact. PSYCHIATRIC: Appropriate affect Discharge Disposition/Condition Disposition: Home Condition: Stable (s/sx potential problems absent or manageable) I spent >30 minutes of patient care and instruction time in preparation for this discharge. Alison Burns MD [facility]. Prefer secure chat/ [phone] * Care Plan - Nela Lebron RN - 07/02/2025 10:15 AM EST Problem: Adult Inpatient Plan of Care Goal: Plan of Care Review Outcome: Ongoing, Progressing Flowsheets (Taken 07/02/2025 1014) Progress: improving Plan of Care Reviewed With: patient Goal: Patient-Specific Goal (Individualized) Outcome: Ongoing, Progressing Flowsheets (Taken 07/02/2025799) Patient/Family-Specific Goals (Include Timeframe): pt will remain free from harm during shift Individualized Care Needs: safety Anxieties, Fears or Concerns: none stated Goal: Absence of Hospital-Acquired Illness or Injury Outcome: Ongoing, Progressing Intervention: Identify and Manage Fall Risk Flowsheets (Taken 07/02/2025799) Safety Promotion/Fall Prevention: activity supervised clutter-free environment maintained fall prevention program maintained lighting adjusted mobility aid in reach nonskid shoes/slippers when out of bed safety round/check completed Intervention: Prevent Skin Injury Flowsheets (Taken 07/02/2025799) Body Position: weight shifting Skin Protection: incontinence pads utilized skin sealant/moisture barrier applied Intervention: Prevent and Manage VTE (Venous Thromboembolism) Risk Flowsheets (Taken 07/02/2025799) VTE Prevention/Management: SCDs (sequential compression devices) off Intervention: Prevent Infection Flowsheets (Taken 07/02/2025799) Infection Prevention: environmental surveillance performed personal protective equipment utilized rest/sleep promoted single patient room provided Goal: Optimal Comfort and Wellbeing Outcome: Ongoing, Progressing Intervention: Monitor Pain and Promote Comfort Flowsheets (Taken 07/02/2025818) Pain Management Interventions: medication (see MAR) Intervention: Provide Person-Centered Care Flowsheets (Taken 07/02/2025799) Trust Relationship/Rapport: care explained emotional support provided questions answered questions encouraged thoughts/feelings acknowledged Problem: Fall Injury Risk Goal: Absence of Fall and Fall-Related Injury Outcome: Ongoing, Progressing Intervention: Identify and Manage Contributors Flowsheets (Taken 07/02/2025799) Medication Review/Management: medications reviewed Self-Care Promotion: independence encouraged Intervention: Promote Injury-Free Environment Flowsheets (Taken 07/02/2025799) Safety Promotion/Fall Prevention: activity supervised clutter-free environment maintained fall prevention program maintained lighting adjusted mobility aid in reach nonskid shoes/slippers when out of bed safety round/check completed Problem: Acute Kidney Injury/Impairment Goal: Fluid and Electrolyte Balance Outcome: Ongoing, Progressing Intervention: Monitor and Manage Fluid and Electrolyte Balance Flowsheets (Taken 07/02/2025799) Fluid/Electrolyte Management: fluids restricted Goal: Improved Oral Intake Outcome: Ongoing, Progressing Intervention: Promote and Optimize Oral Intake Flowsheets (Taken 07/02/2025799) Oral Nutrition Promotion: physical activity promoted rest periods promoted Nutrition Interventions: meal set-up provided meals from home/family encouraged frequent small meals provided Goal: Effective Renal Function Outcome: Ongoing, Progressing Intervention: Monitor and Support Renal Function Flowsheets (Taken 07/02/2025799) Stabilization Measures: legs elevated Medication Review/Management: medications reviewed Problem: Pain Acute Goal: Optimal Pain Control and Function Outcome: Ongoing, Progressing Intervention: Optimize Psychosocial Wellbeing Flowsheets (Taken 07/02/2025799) Supportive Measures: relaxation techniques promoted self-care encouraged Diversional Activities: smartphone television Spiritual Activities Assistance: affirmation provided Intervention: Develop Pain Management Plan Flowsheets (Taken 07/02/2025818) Pain Management Interventions: medication (see MAR) Intervention: Prevent or Manage Pain Flowsheets (Taken 07/02/2025799) Sensory Stimulation Regulation: care clustered lighting decreased quiet environment promoted television on Complementary Therapy: music therapy provided Bowel Elimination Promotion: adequate fluid intake promoted Sleep/Rest Enhancement: awakenings minimized natural light exposure provided regular sleep/rest pattern promoted relaxation techniques promoted room darkened Medication Review/Management: medications reviewed Problem: Anemia Goal: Anemia Symptom Improvement Outcome: Ongoing, Progressing Intervention: Monitor and Manage Anemia Flowsheets (Taken 07/02/2025799) Oral Nutrition Promotion: physical activity promoted rest periods promoted Safety Promotion/Fall Prevention: activity supervised clutter-free environment maintained fall prevention program maintained lighting adjusted mobility aid in reach nonskid shoes/slippers when out of bed safety round/check completed Fatigue Management: frequent rest breaks encouraged Problem: Fluid Volume Deficit Goal: Fluid Balance Outcome: Ongoing, Progressing Intervention: Monitor and Manage Hypovolemia Flowsheets (Taken 07/02/2025799) Fluid/Electrolyte Management: fluids restricted * Consults - Jazmín Hwang RD - 07/02/2025 8:31 AM EST Adult Nutrition Evaluation Note Avis Pemberton 54 y.o. female CSN: [id number] Room/Bed 425/425A Nutrition evaluation type: assessment Reason for evaluation: LOS Hospital course: Pt is a 54 y.o. female with PMH significant for decompensated cirrhosis who presented to the ED on 06/25 from infusion clinic with hypotension, lightheadedness, and a euphoric feeling during albumin infusion. Past medical/ surgical history: Past Medical History[1] Surgical History[2] Social history: reviewed Additional comments: 07/02: Pt seen at bedside. 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 Typically drinks Premier Protein shakes at home, encouraged pt to continue drinking these if her appetite remains poor. Endorsed recent weight gain r/t fluid retention. Understandingof fluid restriction. Encouraged pt to choose soft, moist foods at meal times and chew gum or suck on hard candies to reduce dry mouth. Vitals and Basic Assessment: BP: 106/68 Temp: 36.7 ??C (98.1 ??F) Oxygen Therapy: None (Room air) [place] Coma Scale Score: 15 Mando Scale Score: 19 Most Recent BM Date: 07/02/25 GI Symptoms: Bloating Edema: Generalized, Right lower extremity, Left lower extremity Allergies: NKFA per EMR Medications: Current Scheduled Medications[3] Current Continuous Medications[4] Current PRN Medications[5] Meds were reviewed: Yes Labs: Lab Results Component Value Date WBC 3.08 (L) 07/02/2025 HGB 9.3 (L) 07/02/2025 HCT 27.2 (L) 07/02/2025 MCV 104 (H) 07/02/2025 PLT 36 (L) 07/02/2025 Lab Results Component Value Date GLUCOSE 110 (H) 07/02/2025 CALCIUM 8.4 (L) 07/02/2025 NA 134 (L) 07/02/2025 K 3.9 07/02/2025 CO2 26 07/02/2025 CL 100 07/02/2025 BUN 16 07/02/2025 CREATININE 1.09 07/02/2025 PHOS 3.0 06/26/2025 MG 2.1 07/02/2025 HGBA1C 5.4 05/18/2025 Lab Results Component Value Date PROT 7.3 06/21/2025 ALBUMIN 2.6 (L) 07/02/2025 Albumin is a negative acute-phase reactant, therefore it is not a good indicator of nutrition status. Lab Results Component Value Date ALT 31 07/02/2025 AST 60 (H) 07/02/2025 GGT 52 (H) 05/18/2025 ALKPHOS 145 (H) 07/02/2025 BILITOT 2.0 (H) 07/02/2025 Anthropometrics: Height: 162.6 cm (5' 4.02 ) Weight: 92.7 kg (204 lb 4.8 oz) BMI (Calculated): 35.05 Weight Evaluation: Obese-Class 2 (BMI 35-39.9) [place] Body Weight (kg): 54.5 Percent [place] Body Weight: 170 Adjusted Body Weight (kg): 64 Wt Readings from Last 10 Encounters: 07/02/25 92.7 kg (204 lb 4.8 oz) 06/25/25 95.2 kg (209 lb 14.1 oz) 05/31/25 93.2 kg (205 lb 6.4 oz) 05/22/25 83.9 kg (185 lb) 05/18/25 84.3 kg (185 lb 13.6 oz) 04/03/25 78 kg (171 lb 15.3 oz) 03/08/25 75.9 kg (167 lb 5.3 oz) 02/22/24 82 kg (180 lb 12.4 oz) 05/14/23 102 kg (225 lb) 12/13/20 116 kg (256 lb 4.2 oz) *fluctuations likely 2/2 fluid Estimated Needs: Kcal/ K-35 Kcal Provided: 7491-3831 Kcal Needs Based On: Adjusted weight (64 kg) Gm Protein/ Kg : 1.2-1.5 Protein Provided: 77-96 Protein Needs Based On: Adjusted weight (64 kg) Fluid Provided: 1 ml/kcal or per MD team Metabolic Cart Study Results: Current Nutrition Intake: Diet Order: Adult Diet Diet Texture: Regular Adult Carbohydrate Restriction: Consistent CHO 2 (8361-3750 Tigre, 80 g/meal) Adult Sodium Restriction: 2,000 mg Na Modified Calorie/ Protein: High calorie,high protein Adult Fluid Restriction / 24 hr: 1800 ml fluid Percent Meals Eaten (%): 67% avg x 10 meals (06/28-07/01) Diet Experience and Nutrition History: Diet Education Provided: Will monitor Pertinent home medications: Medications Ordered Prior to Encounter[6] Hinduism needs: Nutrition Focused Physical Exam: Physical exam performed on (date): 07/02 Temples (muscles): None Clavicle (muscle): None Shoulder (muscle): None Interosseous (muscle): None Orbital (fat): None Triceps (fat): None Energy Intake: reported decreased appetite recently Weight Loss: weight gain 2/2 fluid Assessment of Malnutrition: Malnutrition Identified: No Nutrition Problem: Increased nutrient needs (kcal/protein) related to increased metabolic demands as evidenced by cirrhosis. Status of Nutrition Diagnosis: New Nutrition Interventions and Recommendations: Continue Regular/CC2/2g Na+ diet as tolerated. Fluid restriction per team (1800 ml/day). Unable to accommodate High Tigre/Pro modification with CHO and sodium restrictions. Recommend vitamin B complex-vitamin C supplementation. Monitor weight 1-2x weekly. Nursing: please document all PO intakes in the I/Os section of Flowsheets daily. Nutrition Monitoring and Goals: Pt will tolerate >75% meal intakes. Pt will maintain dry body weight this admission. Will monitor PO intake, weight, skin, labs, nutrition status per acuity. Acuity Level: 1 Jazmín Hwang, XAVI, MS, LD [1] Past Medical History: Diagnosis [...] OTHER SURGICAL HISTORY N/A Exploratory Laparotomy from [facility] OVARIAN CYST DRAINAGE N/A Aspiration Of Ovarian Cyst from [facility] TOTAL ABDOMINAL HYSTERECTOMY N/A 2011 Hysterectomy from [facility] [3] bumetanide, 2 mg, Oral, BID busPIRone, 7.5 mg, Oral, BID desvenlafaxine, 50 mg, Oral, Daily ferrous sulfate, 324 mg, Oral, Daily with breakfast insulin lispro, 0-5 Units, Subcutaneous, TID with meals insulin lispro, 0-3 Units, Subcutaneous, Twice at night lactulose, 30 g, Oral, TID magnesium oxide, 400 mg, Oral, BID metoprolol succinate XL, 25 mg, Oral, q AM pantoprazole, 40 mg, Oral, Daily pregabalin, 25 mg, Oral, Nightly rifAXIMin, 550 mg, Oral, BID rOPINIRole, 2 mg, Oral, Nightly senna, 17.2 mg, Oral, Nightly sodium chloride, 10 mL, Intravenous, q12h spironolactone, 100 mg, Oral, Daily valACYclovir, 500 mg, Oral, q AM zinc sulfate, 220 mg, Oral, BID [4] [5] PRN medications: acetaminophen, cyclobenzaprine, glucose OR dextrose 10 % OR dextrose 10 % OR glucagon (human recombinant), diclofenac, hydrOXYzine pamoate, oxyCODONE OR [DISCONTINUED] oxyCODONE, prochlorperazine OR prochlorperazine, [COMPLETED] Insert peripheral IV AND [COMPLETED] Saline lock IV AND sodium chloride AND sodium chloride [6] No current facility-administered medications on file prior to encounter. Current Outpatient Medications on File Prior to Encounter Medication Sig Dispense Refill busPIRone (Buspar) 7.5 MG tablet Take 1 [...] (joint pain). ergocalciferol (Vitamin D-2) 1.25 MG (16702 UT) capsule Take 1 capsule by mouth 1 time per week. Take on Wednesday hydrOXYzine pamoate (Vistaril) 25 MG capsule Take 1 capsule by mouth as needed for itching. insulin aspart (NovoLOG) 100 UNIT/ML injection vial Inject under the skin 3 (three) times daily with meals per correction scale as follows: blood sugar 150- 199 use 1 unit, 200-249 use 2 units, 250-299 use 3 units, 300-349 use 4 units, 350-399 use 5 units, >399 use 6 units and call provider. Max daily dose 50 units. [Paused] insulin glargine (Lantus) 100 UNIT/ML injection vial Inject 10 Units under the skin every morning. If blood sugar is greater than 150 Jardiance 25 MG Take 1 tablet by mouth daily. lansoprazole (Prevacid) [address] capsule Take 1 capsule by mouth daily. lisinopril 2.5 MG tablet Take 1 tablet by mouth daily. ondansetron (Zofran) 8 MG tablet Take 1 tablet by mouth every 8 hours as needed for nausea or vomiting. oxyCODONE (Roxicodone) 5 MG immediate release tablet Take 1.5 tablets by mouth 3 times a day. Ozempic, 1 MG/DOSE, 4 MG/3ML solution pen-injector Inject 1 mg under the skin 1 time per week. promethazine (Phenergan) 25 MG tablet Take 1 tablet by mouth every 6 hours as needed for nausea or vomiting. Rimegepant Sulfate (NURTEC PO) Take 1 tablet by mouth as needed. valACYclovir (Valtrex) 500 MG tablet Take 1 tablet by mouth every morning. zinc sulfate (Zincate) 220 (50 Zn) MG capsule Take 1 capsule by mouth 2 times a day. 240 capsule 2 [DISCONTINUED] bumetanide (Bumex) 1 MG tablet Take 2 tablets by mouth 2 times a day. 120 tablet 0 [DISCONTINUED] FeroSul 325 (65 Fe) MG tablet Take 1 tablet by mouth daily. [DISCONTINUED] lactulose (Chronulac) 10 GM/15ML oral solution Take 15 mL by mouth daily. [DISCONTINUED] magnesium oxide (Mag-Ox) 400 (240 Mg) MG tablet Take 1 tablet by mouth 2 times a day. 60 tablet 0 [DISCONTINUED] metoprolol succinate XL (Toprol-XL) 50 MG 24 hr tablet Take 1 tablet by mouth every morning. Do not crush or chew. [DISCONTINUED] pregabalin (Lyrica) 25 MG capsule Take 1 capsule by mouth 2 times a day. [DISCONTINUED] rifAXIMin (Xifaxan) 550 MG tablet Take 1 tablet by mouth 2 times a day. Medicaid Applicant 180 tablet 0 [DISCONTINUED] rOPINIRole (Requip) 1 MG tablet Take 1 tablet by mouth 3 times a day. [DISCONTINUED] spironolactone (Aldactone) 100 MG tablet Take 1 tablet by mouth 2 times a day. * Care Plan - Estelle Nguyen RN - 07/02/2025 12:38 AM EST Problem: Adult Inpatient Plan of Care Goal: Plan of Care Review Outcome: Ongoing, Progressing Flowsheets (Taken 07/02/2025 0037) Progress: improving Outcome Evaluation: Patient will verbalize understanding of current POC by end of shift Plan of Care Reviewed With: patient Goal: Patient-Specific Goal (Individualized) Outcome: Ongoing, Progressing Flowsheets (Taken 07/01/20251999) Patient/Family-Specific Goals (Include Timeframe): Patient willremain free from falls and further skin breakdown throughout shift Individualized Care Needs: Safety/skin integrity Anxieties, Fears or Concerns: Swelling Problem: Fall Injury Risk Goal: Absence of Fall and Fall-Related Injury Outcome: Ongoing, Progressing Intervention: Promote Injury-Free Environment Flowsheets (Taken 07/01/20251999) Safety Promotion/Fall Prevention: activity supervised assistive device/personal items within reach clutter-free environment maintained fall prevention program maintained lighting adjusted mobility aid in reach nonskid shoes/slippers when out of bed room organization consistent safety round/check completed toileting scheduled Problem: Pain Acute Goal: Optimal Pain Control and Function Outcome: Ongoing, Progressing Intervention: Optimize Psychosocial Wellbeing Flowsheets (Taken 07/01/20251999) Supportive Measures: active listening utilized decision-making supported goal-setting facilitated positive reinforcement provided problem-solving facilitated relaxation techniques promoted self-care encouraged verbalization of feelings encouraged self-responsibility promoted Diversional Activities: individual [employer] smartphone television * Progress Notes - Alison Burns MD - 07/01/2025 9:14 PM EST Subjective Abdominal pain is improved. Feels tired. Slept well last night. Will increase bumex to 2 mg Bid andmonitor. Review of Systems Complete review of system is negative except mentioned in subjective finding. '' Objective Vitals Temp: [36.6 ??C (97.9 ??F)-36.8 ??C (98.2 ??F)] 36.7 ??C (98.1 ??F) Heart Rate: [84-100] 93 Resp: [16-18] 18 BP: (93-105)/(60-70) 103/70 Physical Exam GENERAL:Alert and orientated, cooperative, in no acute distress. HEENT:Normal conjunctiva, no scleral icterus, mucous membranes- moist, no oral thrush, no sinus tenderness. CVS:Regular rhythm, normal rate, normal S1/S2, no murmur. RESPIRATORY: Normal breath sounds,clear on auscultation, no wheezing or rales. GASTROINTESTINAL:Normal BS. Abdomen-soft, improved and slightly distended. MUSCULOSKELETAL:Extremities symmetric , + pedal edema. INTEGUMENTARY:Warm, no rashes or cyanosis. NEUROLOGIC:Non-focal. Cranial nerves II-XII grossly intact. PSYCHIATRIC: Appropriate affect Current Scheduled Medications[1] Current Continuous Medications[2] Current PRN Medications[3] Assessment & Plan KENDRA (acute kidney injury) Anxiety and depression Type 2 diabetes mellitus GERD (gastroesophageal reflux disease) Hyperlipemia Obesity Essential hypertension Iron (Fe) deficiency anemia Congestive heart failure Hypotension, unspecified hypotension type #Acute Kidney Injury c/b decompensated cirrhosis Generalized Anasarca - Baseline creatinine 0.90-1.0; 1.54 on admission -Urine studies showed intrinsic renal disease. -pt has been gaining wt since last month . Baseline wt around 205. Increased leg swelling . -received albumin 5.5 bags at the infusion clinic but no improvement in renal function. -clinically hypervolemic. Gave Bumex 4 mg PO given but had only 300 ml urine output. Gave IV bumex 2 mg x 2 days and had significant urine output . -sCr improved 1.2 today. Plan: -continue bumex 2 mg daily. -Resume spironolactone 100 mg daily -fluid restriction 1800 ml/day - Renally dose medications; avoid nephrotoxins - Strict I&O - Renal function panel daily Stercoral colitis -CT abdomen showed sterocoral colitis with gas concerning for mesenteric ischemia -consulted EGS. Placed npo. Started zosyn. Given lactulose enema . Improved pain and tenderness. Low concern for infection or mesenteric ischemia. -now tolerating regular diet. -stop zosyn PLAN -restart po lactulose prn. #Hypotension - Asymptomatic. Has soft BP at baseline. No s/s of sepsis or infection. #Decompensated cirrhosis - follows with [facility] - MELD 23 ( 08/26/24) - Ascites:Paracentesis Hx - 06/15, drained 3L . Home bumex 2 mg BID , spironolactone 100 mg BID. - HE: HE not present on admission. Lactulose & Rifaximin (insurance did not cover) , Zinc - EV: EGD, : non-obstructing schatzki ring, 2 cm hiatal hernia, non bleeding GAVE s/p APC; metoprolol . Hold metoprolol in the setting of KENDRA. - HCC: q.6 months, AFP: 5.9 on 05/28; US liver 04/2024: without focal lesion -Transplant candidacy : not socially cleared yet. Needs to see psych in Jul -MRI abdomen: no acute lesion -consulted GI and liver transplant. Plan - 2g Na+ 2CC diet - No NSAIDs -FU with transplant on 07/17. #Type 2 DM - A1C:5.4 - Home regimen: Ozempic 1 mg weekly Jardiance 25 mg dialy Lanuts 10 units daily when FSBS > 150 Aspart sliding scale Plan - hold ozempic & Jardiance - hospital regimen: ISS pre protocol #Anemia - Hgb 10.4, Baseline 10-; Iron Supplement, transfuse for Hgb < 7 #Thrombocytopenia - sec to cirrhosis. Transfuse for plt < 10 or <50 with active signs of bleeding . Baseline plt around 50s. Now trending down. Noted splenomegaly 16 cm. #CHF - TTE, 05/28: EF 60% LA dilated; Stress Test, 05/28: no significant changes; Bumex, Spirolactone, Jardiance, all on hold #HTN - metoprolol 12.5 mg BID, lisinopril 2.5 mg daily, spironolactone #RLS - ropinirole 1 mg daily #HLD - simvastatin? #Anxiety/Depression - Buspar 7.5 mg BID, Pristiq 50 mg Daily #Neuropathy/Chronic pain - pregabalin 25 mg BID, Cyclobenzaprine 10 mg TID PRN, Oxycodone 5 mg q.6 hrs PRN #GERD - lansoprazole 30 mg daily #Migraines - Nurtec #Herpes - Valacyclovir 500 mg daily #Obesity - BMI 36.48, complicates all aspects of care Diet:regular, HPHC, < 2 gm Na < 2 L DVT prophylaxis: AC contraindicated in the setting of thrombocytopenia Code status:full code Disposition:home Follow up:GI, transplant, PCP Alison Burns MD [facility]. Prefer secure chat/ [phone] [1] bumetanide, 2 mg, Oral, BID busPIRone, 7.5 mg, Oral, BID desvenlafaxine, 50 mg, Oral, Daily ferrous sulfate, 324 mg, Oral, Daily with breakfast insulin lispro, 0-5 Units, Subcutaneous, TID with meals insulin lispro, 0-3 Units, Subcutaneous, Twice at night lactulose, 20 g, Oral, TID magnesium oxide, 400 mg, Oral, BID metoprolol succinate XL, 25 mg, Oral, q AM pantoprazole, 40 mg, Oral, Daily pregabalin, 25 mg, Oral, Nightly rifAXIMin, 550 mg, Oral, BID rOPINIRole, 2 mg, Oral, Nightly senna, 17.2 mg, Oral, Nightly sodium chloride, 10 mL, Intravenous, q12h spironolactone, 100 mg, Oral, Daily valACYclovir, 500 mg, Oral, q AM zinc sulfate, 220 mg, Oral, BID [2] [3] PRN medications: acetaminophen, cyclobenzaprine, glucose OR dextrose 10 % OR dextrose 10 % OR glucagon (human recombinant), diclofenac, hydrOXYzine pamoate, oxyCODONE OR [DISCONTINUED] oxyCODONE, prochlorperazine OR prochlorperazine, [COMPLETED] Insert peripheral IV AND [COMPLETED] Saline lock IV AND sodium chloride AND sodium chloride * Care Plan - Aixa Bolanos RN - 07/01/2025 8:03 AM EST Problem: Adult Inpatient Plan of Care Goal: Plan of Care Review Outcome: Ongoing, Progressing Flowsheets (Taken 07/01/2025799) Progress: improving Outcome Evaluation: pt will remain safe and free from falls during shift Plan of Care Reviewed With: patient Goal: Patient-Specific Goal (Individualized) Outcome: Ongoing, Progressing Goal: Absence of Hospital-Acquired Illness or Injury Outcome: Ongoing, Progressing Intervention: Identify and Manage Fall Risk Flowsheets (Taken 07/01/2025799) Safety Promotion/Fall Prevention: activity supervised Intervention: Prevent Skin Injury Flowsheets (Taken 07/01/2025799) Body Position: weight shifting Skin Protection: incontinence pads utilized Intervention: Prevent and Manage VTE (Venous Thromboembolism) Risk Flowsheets (Taken 07/01/2025799) VTE Prevention/Management: medication Intervention: Prevent Infection Flowsheets (Taken 07/01/2025799) Infection Prevention: rest/sleep promoted Goal: Optimal Comfort and Wellbeing Outcome: Ongoing, Progressing Intervention: Monitor Pain and Promote Comfort Flowsheets (Taken 07/01/2025799) Pain Management Interventions: medication (see MAR) Intervention: Provide Person-Centered Care Flowsheets (Taken 07/01/2025799) Trust Relationship/Rapport: care explained Problem: Fall Injury Risk Goal: Absence of Fall and Fall-Related Injury Outcome: Ongoing, Progressing Intervention: Identify and Manage Contributors Flowsheets (Taken 07/01/2025799) Medication Review/Management: medications reviewed Self-Care Promotion: independence encouraged Intervention: Promote Injury-Free Environment Flowsheets (Taken 07/01/2025799) Safety Promotion/Fall Prevention: activity supervised Problem: Acute Kidney Injury/Impairment Goal: Fluid and Electrolyte Balance Outcome: Ongoing, Progressing Intervention: Monitor and Manage Fluid and Electrolyte Balance Flowsheets (Taken 07/01/2025799) Fluid/Electrolyte Management: fluids restricted Goal: Improved Oral Intake Outcome: Ongoing, Progressing Intervention: Promote and Optimize Oral Intake Flowsheets (Taken 07/01/2025799) Oral Nutrition Promotion: rest periods promoted Nutrition Interventions: diet advanced Goal: Effective Renal Function Outcome: Ongoing, Progressing Intervention: Monitor and Support Renal Function Flowsheets (Taken 07/01/2025799) Stabilization Measures: legs elevated Medication Review/Management: medications reviewed Problem: Pain Acute Goal: Optimal Pain Control and Function Outcome: Ongoing, Progressing Intervention: Optimize Psychosocial Wellbeing Flowsheets (Taken 07/01/2025799) Supportive Measures: active listening utilized Diversional Activities: smartphone Spiritual Activities Assistance: affirmation provided Intervention: Develop Pain Management Plan Flowsheets (Taken 07/01/2025799) Pain Management Interventions: medication (see MAR) Intervention: Prevent or Manage Pain Flowsheets (Taken 07/01/2025799) Sensory Stimulation Regulation: auditory stimulation minimized Complementary Therapy: music therapy provided Sleep/Rest Enhancement: awakenings minimized Medication Review/Management: medications reviewed Problem: Anemia Goal: Anemia Symptom Improvement Outcome: Ongoing, Progressing Intervention: Monitor and Manage Anemia Flowsheets (Taken 07/01/2025799) Oral Nutrition Promotion: rest periods promoted Safety Promotion/Fall Prevention: activity supervised Fatigue Management: activity schedule adjusted Problem: Fluid Volume Deficit Goal: Fluid Balance Outcome: Ongoing, Progressing Intervention: Monitor and Manage Hypovolemia Flowsheets (Taken 07/01/2025799) Fluid/Electrolyte Management: fluids restricted * Care Plan - Estelle Nguyen RN - 07/01/2025 3:05 AM EST Problem: Adult Inpatient Plan of Care Goal: Plan of Care Review Outcome: Ongoing, Progressing Flowsheets (Taken 07/01/2025 0304) Progress: improving Outcome Evaluation: Patient will verbalize understanding of current POC by end of shift Plan of Care Reviewed With: patient Goal: Patient-Specific Goal (Individualized) Outcome: Ongoing, Progressing Flowsheets (Taken 06/30/20251999) Patient/Family-Specific Goals (Include Timeframe): Patient will remain free from falls and maintainpain level<8 post each intervention throughout shift Individualized Care Needs: Safety/pain management Anxieties, Fears or Concerns: Hoping to be discharged soon Problem: Fall Injury Risk Goal: Absence of Fall and Fall-Related Injury Outcome: Ongoing, Progressing Intervention: Promote Injury-Free Environment Flowsheets (Taken 06/30/20251999) Safety Promotion/Fall Prevention: activity supervised assistive device/personal items within reach clutter-free environment maintained fall prevention program maintained lighting adjusted mobility aid in reach nonskid shoes/slippers when out of bed room organization consistent safety round/check completed toileting scheduled Problem: Pain Acute Goal: Optimal Pain Control and Function Outcome: Ongoing, Progressing Intervention: Develop Pain Management Plan Flowsheets (Taken 06/30/20252100) Pain Management Interventions: medication (see MAR) Problem: Fluid Volume Deficit Goal: Fluid Balance Outcome: Ongoing, Progressing Intervention: Monitor and Manage Hypovolemia Flowsheets (Taken 06/30/20251999) Fluid/Electrolyte Management: fluids restricted * Progress Notes - Alison Burns MD - 06/30/2025 3:28 PM EST Subjective Pt 1 large good BM yesterday. Will restart lactulose po . Still has leg swelling. Will try DARYL wraps. Sister at bedside. Said pt might be drinking a lot of fluids and soda. Explained plan to increasefluid restriction to 1800 ml/day Review of Systems Complete review of system is negative except mentioned in subjective finding. '' Objective Vitals Temp: [36.6 ??C (97.9 ??F)-36.8 ??C (98.2 ??F)] 36.8 ??C (98.2 ??F) Heart Rate: [100-108] 100 Resp: [16] 16 BP: (94-119)/(57-76) 101/57 Physical Exam GENERAL:Alert and orientated, cooperative, in no acute distress. HEENT:Normal conjunctiva, no scleral icterus, mucous membranes- moist, no oral thrush, no sinus tenderness. CVS:Regular rhythm, normal rate, normal S1/S2, no murmur. RESPIRATORY: Normal breath sounds,clear on auscultation, no wheezing or rales. GASTROINTESTINAL:Normal BS. Abdomen-soft, improved and slightly distended. MUSCULOSKELETAL:Extremities symmetric , + pedal edema. INTEGUMENTARY:Warm, no rashes or cyanosis. NEUROLOGIC:Non-focal. Cranial nerves II-XII grossly intact. PSYCHIATRIC: Appropriate affect Current Scheduled Medications[1] Current Continuous Medications[2] Current PRN Medications[3] Assessment & Plan KENDRA (acute kidney injury) Anxiety and depression Type 2 diabetes mellitus GERD (gastroesophageal reflux disease) Hyperlipemia Obesity Essential hypertension Iron (Fe) deficiency anemia Congestive heart failure Hypotension, unspecified hypotension type #Acute Kidney Injury c/b decompensated cirrhosis Generalized Anasarca - Baseline creatinine 0.90-1.0; 1.54 on admission -Urine studies showed intrinsic renal disease. -pt has been gaining wt since last month . Baseline wt around 205. Increased leg swelling . -received albumin 5.5 bags at the infusion clinic but no improvement in renal function. -clinically hypervolemic. Gave Bumex 4 mg PO given but had only 300 ml urine output. Gave IV bumex 2 mg x 2 days and had significant urine output . -sCr improved 1.2 today. Plan: -continue bumex 2 mg daily. -Resume spironolactone 100 mg daily -fluid restriction 1800 ml/day - Renally dose medications; avoid nephrotoxins - Strict I&O - Renal function panel daily Stercoral colitis -CT abdomen showed sterocoral colitis with gas concerning for mesenteric ischemia -consulted EGS. Placed npo. Started zosyn. Given lactulose enema . Improved pain and tenderness. Low concern for infection or mesenteric ischemia. -now tolerating regular diet. -stop zosyn PLAN -restart po lactulose prn. #Hypotension - Asymptomatic. Has soft BP at baseline. No s/s of sepsis or infection. #Decompensated cirrhosis - follows with [facility] - MELD 23 ( 08/26/24) - Ascites:Paracentesis Hx - 06/15, drained 3L . Home bumex 2 mg BID , spironolactone 100 mg BID. - HE: HE not present on admission. Lactulose & Rifaximin (insurance did not cover) , Zinc - EV: EGD, : non-obstructing schatzki ring, 2 cm hiatal hernia, non bleeding GAVE s/p APC; metoprolol . Hold metoprolol in the setting of KENDRA. - HCC: q.6 months, AFP: 5.9 on 05/28; US liver 04/2024: without focal lesion -Transplant candidacy : not socially cleared yet. Needs to see psych in Jul -MRI abdomen: no acute lesion -consulted GI and liver transplant. Plan - 2g Na+ 2CC diet - No NSAIDs -FU with transplant on 07/17. #Type 2 DM - A1C:5.4 - Home regimen: Ozempic 1 mg weekly Jardiance 25 mg dialy Lanuts 10 units daily when FSBS > 150 Aspart sliding scale Plan - hold ozempic & Jardiance - hospital regimen: ISS pre protocol #Anemia - Hgb 10.4, Baseline 04-21; Iron Supplement, transfuse for Hgb < 7 #Thrombocytopenia - sec to cirrhosis. Transfuse for plt < 10 or <50 with active signs of bleeding . Baseline plt around 50s. Now trending down. Noted splenomegaly 16 cm. #CHF - TTE, 05/28: EF 60% LA dilated; Stress Test, 05/28: no significant changes; Bumex, Spirolactone, Jardiance, all on hold #HTN - metoprolol 12.5 mg BID, lisinopril 2.5 mg daily, spironolactone #RLS - ropinirole 1 mg daily #HLD - simvastatin? #Anxiety/Depression - Buspar 7.5 mg BID, Pristiq 50 mg Daily #Neuropathy/Chronic pain - pregabalin 25 mg BID, Cyclobenzaprine 10 mg TID PRN, Oxycodone 5 mg q.6 hrs PRN #GERD - lansoprazole 30 mg daily #Migraines - Nurtec #Herpes - Valacyclovir 500 mg daily #Obesity - BMI 36.48, complicates all aspects of care Diet:regular, HPHC, < 2 gm Na < 2 L DVT prophylaxis: AC contraindicated in the setting of thrombocytopenia Code status:full code Disposition:home Follow up:GI, transplant, PCP Alison Burns MD [facility]. Prefer secure chat/ [phone] [1] bumetanide, 2 mg, Oral, Daily busPIRone, 7.5 mg, Oral, BID desvenlafaxine, 50 mg, Oral, Daily ferrous sulfate, 324 mg, Oral, Daily with breakfast insulin lispro, 0-5 Units, Subcutaneous, TID with meals insulin lispro, 0-3 Units, Subcutaneous, Twice at night lactulose, 20 g, Oral, TID magnesium oxide, 400 mg, Oral, BID metoprolol succinate XL, 25 mg, Oral, q AM pantoprazole, 40 mg, Oral, Daily pregabalin, 25 mg, Oral, Nightly rifAXIMin, 550 mg, Oral, BID rOPINIRole, 2 mg, Oral, Nightly senna, 17.2 mg, Oral, Nightly sodium chloride, 10 mL, Intravenous, q12h spironolactone, 100 mg, Oral, Daily valACYclovir, 500 mg, Oral, q AM zinc sulfate, 220 mg, Oral, BID [2] [3] PRN medications: acetaminophen, cyclobenzaprine, glucose OR dextrose 10 % OR dextrose 10 % OR glucagon (human recombinant), diclofenac, hydrOXYzine pamoate, oxyCODONE OR [DISCONTINUED] oxyCODONE, prochlorperazine OR prochlorperazine, [COMPLETED] Insert peripheral IV AND [COMPLETED] Saline lock IV AND sodium chloride AND sodium chloride * Care Plan - Nela Lebron RN - 06/30/2025 10:35 AM EST Problem: Adult Inpatient Plan of Care Goal: Plan of Care Review Outcome: Ongoing, Progressing Flowsheets (Taken 06/30/2025 1034) Progress: improving Plan of Care Reviewed With: patient Goal: Patient-Specific Goal (Individualized) Outcome: Ongoing, Progressing Flowsheets (Taken 06/30/2025799) Patient/Family-Specific Goals (Include Timeframe): pt will remain free from harm during shift Individualized Care Needs: safety Anxieties, Fears or Concerns: none stated Goal: Absence of Hospital-Acquired Illness or Injury Outcome: Ongoing, Progressing Intervention: Identify and Manage Fall Risk Flowsheets (Taken 06/30/2025799) Safety Promotion/Fall Prevention: activity supervised clutter-free environment maintained fall prevention program maintained lighting adjusted mobility aid in reach nonskid shoes/slippers when out of bed safety round/check completed Intervention: Prevent Skin Injury Flowsheets (Taken 06/30/2025799) Body Position: weight shifting Skin Protection: incontinence pads utilized skin sealant/moisture barrier applied Intervention: Prevent and Manage VTE (Venous Thromboembolism) Risk Flowsheets (Taken 06/30/2025799) VTE Prevention/Management: SCDs (sequential compression devices) off Intervention: Prevent Infection Flowsheets (Taken 06/30/2025799) Infection Prevention: environmental surveillance performed personal protective equipment utilized rest/sleep promoted single patient room provided Goal: Optimal Comfort and Wellbeing Outcome: Ongoing, Progressing Intervention: Monitor Pain and Promote Comfort Flowsheets (Taken 06/30/2025919) Pain Management Interventions: medication (see MAR) Intervention: Provide Person-Centered Care Flowsheets (Taken 06/30/2025799) Trust Relationship/Rapport: care explained emotional support provided questions answered questions encouraged thoughts/feelings acknowledged Problem: Fall Injury Risk Goal: Absence of Fall and Fall-Related Injury Outcome: Ongoing, Progressing Intervention: Identify and Manage Contributors Flowsheets (Taken 06/30/2025799) Medication Review/Management: medications reviewed Self-Care Promotion: independence encouraged Intervention: Promote Injury-Free Environment Flowsheets (Taken 06/30/2025799) Safety Promotion/Fall Prevention: activity supervised clutter-free environment maintained fall prevention program maintained lighting adjusted mobility aid in reach nonskid shoes/slippers when out of bed safety round/check completed Problem: Acute Kidney Injury/Impairment Goal: Fluid and Electrolyte Balance Outcome: Ongoing, Progressing Intervention: Monitor and Manage Fluid and Electrolyte Balance Flowsheets (Taken 06/30/2025799) Fluid/Electrolyte Management: fluids restricted Goal: Improved Oral Intake Outcome: Ongoing, Progressing Intervention: Promote and Optimize Oral Intake Flowsheets (Taken 06/30/2025799) Oral Nutrition Promotion: physical activity promoted rest periods promoted social interaction promoted Nutrition Interventions: diet adjusted frequent small meals provided meal set-up provided food preferences provided Goal: Effective Renal Function Outcome: Ongoing, Progressing Intervention: Monitor and Support Renal Function Flowsheets (Taken 06/30/2025799) Stabilization Measures: legs elevated Medication Review/Management: medications reviewed Problem: Pain Acute Goal: Optimal Pain Control and Function Outcome: Ongoing, Progressing Intervention: Optimize Psychosocial Wellbeing Flowsheets (Taken 06/30/2025799) Supportive Measures: relaxation techniques promoted self-care encouraged Diversional Activities: smartphone television Spiritual Activities Assistance: affirmation provided Intervention: Develop Pain Management Plan Flowsheets (Taken 06/30/2025919) Pain Management Interventions: medication (see MAR) Intervention: Prevent or Manage Pain Flowsheets (Taken 06/30/2025799) Sensory Stimulation Regulation: care clustered lighting decreased quiet environment promoted television on Complementary Therapy: music therapy provided Bowel Elimination Promotion: adequate fluid intake promoted Sleep/Rest Enhancement: awakenings minimized natural light exposure provided regular sleep/rest pattern promoted relaxation techniques promoted room darkened Medication Review/Management: medications reviewed Problem: Anemia Goal: Anemia Symptom Improvement Outcome: Ongoing, Progressing Intervention: Monitor and Manage Anemia Flowsheets (Taken 06/30/2025 0800) Oral Nutrition Promotion: physical activity promoted rest periods promoted social interaction promoted Safety Promotion/Fall Prevention: activity supervised clutter-free environment maintained fall prevention program maintained lighting adjusted mobility aid in reach nonskid shoes/slippers when out of bed safety round/check completed Fatigue Management: activity assistance provided frequent rest breaks encouraged paced activity encouraged Problem: Fluid Volume Deficit Goal: Fluid Balance Outcome: Ongoing, Progressing Intervention: Monitor and Manage Hypovolemia Flowsheets (Taken 06/30/2025 0800) Fluid/Electrolyte Management: fluids restricted * Care Plan - Estelle Nguyen RN - 06/30/2025 1:02 AM EST Problem: Adult Inpatient Plan of Care Goal: Plan of Care Review Outcome: Ongoing, Progressing Flowsheets (Taken 06/30/2025 010) Progress: improving Outcome Evaluation: Patient will verbalize understanding of current POC by end of shift Plan of Care Reviewed With: patient Goal: Patient-Specific Goal (Individualized) Outcome: Ongoing, Progressing Flowsheets (Taken 06/29/20251999) Patient/Family-Specific Goals (Include Timeframe): Patient will remain free from falls and skin breakdown throughout shift Individualized Care Needs: Safety/skin integrity Anxieties, Fears or Concerns: MRI results Problem: Fall Injury Risk Goal: Absence of Fall and Fall-Related Injury Outcome: Ongoing, Progressing Intervention: Promote Injury-Free Environment Flowsheets (Taken 06/29/20251999) Safety Promotion/Fall Prevention: activity supervised assistive device/personal items within reach clutter-free environment maintained fall prevention program maintained lighting adjusted mobility aid in reach nonskid shoes/slippers when out of bed room organization consistent safety round/check completed toileting scheduled Problem: Pain Acute Goal: Optimal Pain Control and Function Outcome: Ongoing, Progressing Intervention: Develop Pain Management Plan Flowsheets (Taken 06/29/20252050) Pain Management Interventions: medication (see MAR) position adjusted Problem: Fluid Volume Deficit Goal: Fluid Balance Outcome: Ongoing, Progressing Intervention: Monitor and Manage Hypovolemia Flowsheets (Taken 06/29/20251999) Fluid/Electrolyte Management: fluids restricted * Progress Notes - Marisela Ruth MBBS - 06/29/2025 3:43 PM EST Gastroenterology and hepatology progress note # 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 Ascites: On Aldactone 200 mg and Bumex 1 mg BID Hepatic encephalopathy: Prior history. 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 SBP: No history HCC: no masses on recent CT. AFP normal. KENDRA- Currently has Cr of 1.5, initially improved with diuresis, now trending up again - Fractional Excretion of Urea (FEUrea) from [facility] on 06/28/2025 RESULT SUMMARY: 53.1 % FEUrea >35% suggests intrinsic renal disease INPUTS: BUN or serum urea --> 21 mg/dL Serum creatinine --> 1.46 mg/dL Urine urea --> 191 mg/dL Urine creatinine --> 25 mg/dL Labs concerning for intra-renal disease but response to diuresis and then worsening might indicate sensitivity to diuretics. Still concerns for HRS-KENDRA Plan: Ascites/ KENDRA Sodium restriction <2g/day Received diuresis as Bumex 6 mg on 06/26 and 4 mg on 06/27, off aldactone. Repeat Creatinine while being off diuretics, improved to 1.3 from 1.5. patient is fluid overloaded again. Agree with gentle diuresis Bumex 2 mg daily, titrate slowly. Infectious workup including blood Cx, CXR, UA negative Get a paracentesis to rule out SBP if possible, IR could not find a pocket On CT patient likely has stercoral colitis, but intramural bowel gas is mentioned w/o portal gas. Less likely to be mesenteric ischemia , Sx on board Monitor for electrolyte disturbances, renal function Hepatic Encephalopathy Lactulose 10-20g TID PRN for 3-4 BM, or bowel regimen per Surgery given Stercoral colitis concerns Continue rifaximin Nutritional support: 1.25 g/kg protein/day, nighttime snack Varices/Variceal Bleeding No prior hx of variceal bleeding. Will continue to monitor Hgb trend, if significantly down-ternding, will plan for inpatient EGD. Spontaneous Bacterial Peritonitis No prior hx of SBP. Diagnostic paracentesis if pocket is identifiable Transplant Evaluation Undergoing liver transplant evaluation Subjective Seen on bedside Afebrile, HDS Slightly lethargic, pending a BM today Creatinine improved, hypervolemic on exam, restarted diuresis slowly Review of Systems As mentioned in HPI Objective Vitals Temp: [36.6 ??C (97.9 ??F)-37.1 ??C (98.8 ??F)] 36.7 ??C (98.1 ??F) Heart Rate: [99-106] 106 Resp: [15-18] 16 BP: (101-118)/(61-75) 109/61 Physical Exam Constitutional: Appearance: Normal appearance. She is obese. HENT: Mouth/Throat: Mouth: Mucous membranes are moist. Eyes: General: No scleral icterus. Cardiovascular: Rate and Rhythm: Tachycardia present. Pulses: Normal pulses. Pulmonary: Effort: Pulmonary effort is normal. Abdominal: General: There is distension. Musculoskeletal: Right lower leg: Edema present. Left lower leg: Edema present. Skin: Coloration: Skin is not jaundiced. Neurological: Mental Status: She is oriented to person, place, and time. === 06/25/25 === US ABDOMEN DOPPLER LIMITED - Narrative - CLINICAL INDICATION: PVT rule out TECHNIQUE: Grayscale and Doppler images of the portal vein. COMPARISON: Same day CT, May 25, 2025 FINDINGS: Liver: Cirrhotic morphology. Perihepatic ascites. Main portal vein: Portal vein measures 1 cm in diameter with antegrade flow. Flow velocities measure up to 28.5 cm/s. Possible artifacts seen in image 5 and 18. - Impression - Grossly patent portal vein with antegrade flow. CHAN Yusuf Cosigned by Nj Johns MD at 06/30/2025 11:31 PM EST Associated attestation - Nj Johns MD - 06/30/2025 11:31 PM EST I saw and evaluated the patient with the fellow. I discussed the case with the fellow and agree with the findings and plan as documented. Nj Johns MD * Progress Notes - Grant Alison Navarro MD - 06/29/2025 2:43 PM EST Subjective Pt had 3 BM yesterday. Improved abdominal pain. Had 1 BM after suppository this am. Plan to give enema again this afternoon. Resume bumex 2 mg daily today. Pt feels tired today. C/o skin itchiness. Transplant team plans for MRI. Repeat ABG today. Review of Systems Complete review of system is negative except mentioned in subjective finding. '' Objective Vitals Temp: [36.6 ??C (97.9 ??F)-37.1 ??C (98.8 ??F)] 36.7 ??C (98.1 ??F) Heart Rate: [99-106] 106 Resp: [15-18] 16 BP: (101-118)/(61-75) 109/61 Physical Exam GENERAL:Alert and orientated, cooperative, in no acute distress. HEENT:Normal conjunctiva, no scleral icterus, mucous membranes- moist, no oral thrush, no sinus tenderness. CVS:Regular rhythm, normal rate, normal S1/S2, no murmur. RESPIRATORY: Normal breath sounds,clear on auscultation, no wheezing or rales. GASTROINTESTINAL:Normal BS. Abdomen-soft, improved and slightly distended. MUSCULOSKELETAL:Extremities symmetric , + pedal edema. INTEGUMENTARY:Warm, no rashes or cyanosis. NEUROLOGIC:Non-focal. Cranial nerves II-XII grossly intact. PSYCHIATRIC: Appropriate affect Current Scheduled Medications[1] Current Continuous Medications[2] Current PRN Medications[3] Assessment & Plan KENDRA (acute kidney injury) Anxiety and depression Type 2 diabetes mellitus GERD (gastroesophageal reflux disease) Hyperlipemia Obesity Essential hypertension Iron (Fe) deficiency anemia Congestive heart failure Hypotension, unspecified hypotension type #Acute Kidney Injury c/b decompensated cirrhosis Generalized Anasarca - Baseline creatinine 0.90-1.0; 1.54 on admission -Urine studies showed intrinsic renal disease. -pt has been gaining wt since last month . Baseline wt around 205. Increased leg swelling . -received albumin 5.5 bags at the infusion clinic but no improvement in renal function. -clinically hypervolemic. Gave Bumex 4 mg PO given but had only 300 ml urine output. Gave IV bumex 2 mg x 2 days and had significant urine output . -sCr stable at 1.4. wt improved and improved leg swelling. Plan: -resume bumex 2 mg daily. -fluid restriction 1800 ml/day - Renally dose medications; avoid nephrotoxins - Strict I&O -continue to hold spironolactone - Renal function panel daily Stercoral colitis -CT abdomen showed sterocoral colitis with gas concerning for mesenteric ischemia -consulted EGS. Placed npo. Started zosyn. Given lactulose enema . Improved pain and tenderness. Low concern for infection or mesenteric ischemia. -now tolerating regular diet. PLAN -stop zosyn -will give dulcolax and enema. -if improved, will start po laxatives. #Hypotension - Asymptomatic. Has soft BP at baseline. No s/s of sepsis or infection. #Decompensated cirrhosis - follows with [facility] - MELD 23 ( 08/26/24) - Ascites:Paracentesis Hx - 06/15, drained 3L . Home bumex 2 mg BID , spironolactone 100 mg BID. - HE: HE not present on admission. Lactulose & Rifaximin (insurance did not cover) , Zinc - EV: EGD, : non-obstructing schatzki ring, 2 cm hiatal hernia, non bleeding GAVE s/p APC; metoprolol . Hold metoprolol in the setting of KENDRA. - HCC: q.6 months, AFP: 5.9 on 05/28; US liver 04/2024: without focal lesion -Transplant candidacy : not socially cleared yet. Need repeat ABG and CT abdomen liver protocol. Needs to see psych in Jul -consulted GI and liver transplant. Plan - 2g Na+ 2CC diet - No NSAIDs -resume bumex 2 mg daily. Continue to hold spironolactone. #Type 2 DM - A1C:5.4 - Home regimen: Ozempic 1 mg weekly Jardiance 25 mg dialy Lanuts 10 units daily when FSBS > 150 Aspart sliding scale Plan - hold ozempic & Jardiance - hospital regimen: ISS pre protocol #Anemia - Hgb 10.4, Baseline 10-11; Iron Supplement, transfuse for Hgb < 7 #Thrombocytopenia - sec to cirrhosis. Transfuse for plt < 10 or <50 with active signs of bleeding #CHF - TTE, 05/28: EF 60% LA dilated; Stress Test, 05/28: no significant changes; Bumex, Spirolactone, Jardiance, all on hold #HTN - metoprolol 12.5 mg BID, lisinopril 2.5 mg daily, spironolactone #RLS - ropinirole 1 mg daily #HLD - simvastatin? #Anxiety/Depression - Buspar 7.5 mg BID, Pristiq 50 mg Daily #Neuropathy/Chronic pain - pregabalin 25 mg BID, Cyclobenzaprine 10 mg TID PRN, Oxycodone 5 mg q.6 hrs PRN #GERD - lansoprazole 30 mg daily #Migraines - Nurtec #Herpes - Valacyclovir 500 mg daily #Obesity - BMI 36.48, complicates all aspects of care Diet:regular, HPHC, < 2 gm Na < 2 L DVT prophylaxis: AC contraindicated in the setting of GI bleed and thrombocytopenia Code status:full code Disposition:home Follow up:GI, transplant, PCP Alison Burns MD [facility]. Prefer secure chat/ [phone] [1] [START ON 06/30/2025] bumetanide, 2 mg, Oral, Daily busPIRone, 7.5 mg, Oral, BID desvenlafaxine, 50 mg, Oral, Daily ferrous sulfate, 324 mg, Oral, Daily with breakfast insulin lispro, 0-5 Units, Subcutaneous, TID with meals insulin lispro, 0-3 Units, Subcutaneous, Twice at night magnesium oxide, 400 mg, Oral, BID pantoprazole, 40 mg, Oral, Daily rifAXIMin, 550 mg, Oral, BID senna, 17.2 mg, Oral, Nightly sodium chloride, 10 mL, Intravenous, q12h valACYclovir, 500 mg, Oral, q AM zinc sulfate, 220 mg, Oral, BID [2] sodium chloride, 10 mL/hr, Last Rate: 10 mL/hr (06/29/25 1259) [3] PRN medications: acetaminophen, cyclobenzaprine, glucose OR dextrose 10 % OR dextrose 10 % OR glucagon (human recombinant), diclofenac, hydrOXYzine pamoate, lactulose, oxyCODONE OR oxyCODONE, prochlorperazine OR prochlorperazine, rOPINIRole, [COMPLETED] Insert peripheral IV AND [COMPLETED] Saline lock IV AND sodium chloride AND sodium chloride * Progress Notes - Joe Garcia, CYDNEY - 06/29/2025 1:49 PM EST Abdominal Transplant Surgery Consult Follow-Up Note Reason for Consult: decompensated cirrhosis of liver CHIEF COMPLAINT: hypotension & lightheadedness 24 Hour HPI: No acute events overnight. On assessment patient is alert & oriented, with complaints of fatigue from lack of sleep. Discussed with patient that she has an MRI w/ & wo contrast ordered, that will finish out the remaining medical portion of her transplant evaluation. She will have to f/u outpatient with Dr. Cervantes prior to being considered for transplant. She verbalized understa nding. Discussed with patient that transplant surgery will be signing off, as patient only needs outpatient f/u to finish her evaluation after she completes MRI. She again verbalized understanding. Denies any further questions for transplant surgery at this time. Edited by: Joe Garcia, FIRST SAMPLER at 06/29/2025 1350 MELD 3.0: 23 at 06/29/2025 3:39 AM MELD-Na: 22 at 06/29/2025 3:39 AM Calculated from: Serum Creatinine: 1.32 mg/dL at 06/29/2025 3:39 AM Serum Sodium: 133 mmol/L at 06/29/2025 3:39 AM Total Bilirubin: 2.3 mg/dL at 06/29/2025 3:39 AM Serum Albumin: 2.9 g/dL at 06/29/2025 3:39 AM INR(ratio): 1.8 at 06/29/2025 3:39 AM Age at listing (hypothetical): 54 years Sex: Female at 06/29/2025 3:39 AM MEDICATIONS Medications Ordered Prior to Encounter[1] REVIEW OF SYSTEMS 14-point ROS negative except as above in HPI. PHYSICAL EXAM GENERAL: ill appearing adult female EYES: PERRL + scleral icterus HENT: No lesions in anterior nares; no lesions in oropharynx, head atraumatic and normocephalic NECK: Supple. No thyromegaly or adenopathy. No JVD noted. The trachea appears midline. RESP: Symmetric expansion; no retractions. Clear to auscultation bilaterally. CARD: RRR, without appreciable murmur, rubs, or gallop. Extremities: +1 BLE edema, no cyanosis or clubbing. Pulses palpable x4. GI: obese abdomen; No organomegaly or masses. Nontender nondistended. Soft BS present x 4 quadrants. SKIN: No rash, sores, lesions or subcutaneous nodules. : voids NEURO:GCS 15 LABS Results from last 7 days Lab Units 06/29/25 0339 SODIUM mmol/L 133* POTASSIUM mmol/L 4.0 CHLORIDE mmol/L 99 CO2 mmol/L 28 BUN mg/dL 17 CREATININE mg/dL 1.32* CALCIUM mg/dL 8.6* BILIRUBIN TOTAL mg/dL 2.3* ALKALINE PHOSPHATASE U/L 166* ALT U/L 34 AST U/L 58* GLUCOSE mg/dL 138* Results from last 7 days Lab Units 06/29/25 0339 WBC 10*3/uL 3.70 HEMOGLOBIN g/dL 9.0* HEMATOCRIT % 26.3* PLATELETS 10*3/uL 34* Results from last 7 days Lab Units 06/29/25 0339 MAGNESIUM mg/dL 2.3 Lab Results Component Value Date CALCIUM 8.6 (L) 06/29/2025 PHOS 3.0 06/26/2025 MELD 3.0: 23 at 06/29/2025 3:39 AM MELD-Na: 22 at 06/29/2025 3:39 AM Calculated from: Serum Creatinine: 1.32 mg/dL at 06/29/2025 3:39 AM Serum Sodium: 133 mmol/L at 06/29/2025 3:39 AM Total Bilirubin: 2.3 mg/dL at 06/29/2025 3:39 AM Serum Albumin: 2.9 g/dL at 06/29/2025 3:39 AM INR(ratio): 1.8 at 06/29/2025 3:39 AM Age at listing (hypothetical): 54 years Sex: Female at 06/29/2025 3:39 AM ASSESSMENT/PLAN Avis Pemberton is a 54 y.o. female with a PMHx of decompensated cirrhosis, CHF, HTN, type 2 DM, chronic pain, and anxiety/depression who presented to the emergency department on 06/25 for evaluation of hypotension. Per chart review patient was at an infusion clinic receiving albumin, when she became hypotensive, lightheaded, and had a feeling of euphoria. Albumin was stopped and she presented to the emergency department where she was found to be anemic, thrombocytopenic, hyperglycemic, KENDRA, and elevated liver enzymes. She was admitted to hospital medicine for further workup and management.Transplant surgery was consulted as patient is undergoing evaluation for liver transplant. Decompensated MASH cirrhosis Ascites HE - MELD 3.0: 23 per labs 06/29/25, ABO A+ - GAS/Hepatology following, appreciate recs - on lactulose & rifaximin - Patient was discussed in liver selection committee on 06/25: The patient has started transplant evaluation testing; need ABG & CT Liver protocol to finish medical portion of evaluation as patient condition allows - 06/27: Discussed with the patient that she remains not socially cleared pending f/up with Dr. Cervantes outpatient (on 07/24/25). Once she completes medical evaluation testing and follows up with Dr. Cervantes, the patient will be discussed in liver selection committee. - 06/28: ABG obtained - MR Abd w/ and w/out IV contrast Liver protocol ordered/pending - Transplant surgery will sign off - rest of care per primary team KENDRA - Baseline Cr appears around 1, Cr on admission 1.53 - 06/26: Cr 1.46 -> 06/27: Cr 1.43 -> 06/29: Cr 1.32 - strict Is and Os - avoid nephrotoxic agents as able - renally dose medications DM2 - 05/18/25: Hgb A1c: 5.4 - on SSI Low Vitamin D - 05/18: 18.9, will need ergocalciferol course post OLT. Anxiety Depression - on home buspar + pristiq GERD - on PPI Morbid Obesity Anasarca - BMI 35.3; complicates all aspects of patient's care - baseline weight noted from 04/03/25 Hepatology visit is 166 lbs. Patient 213 lbs as of 06/26 - patient's body habitus is not prohibitive to transplant at this time. Edited by: Joe Garcia APRN at 06/29/2025 1350 I spent 30 minutes chart review, counseling patient/family regarding diagnosis, [...] mouth 2 times a day. 120 tablet 0 busPIRone (Buspar) 7.5 MG tablet Take 1 [...] (joint pain). ergocalciferol (Vitamin D-2) 1.25 MG (49781 UT) capsule Take 1 capsule by mouth 1 time per week. Take on Wednesday FeroSul 325 (65 Fe) MG tablet Take 1 tablet by mouth daily. hydrOXYzine pamoate (Vistaril) 25 MG capsule Take 1 capsule by mouth as needed for itching. insulin aspart (NovoLOG) 100 UNIT/ML injection vial Inject under the skin 3 (three) times daily with meals per correction scale as follows: blood sugar 150- 199 use 1 unit, 200-249 use 2 units, 250-299 use 3 units, 300-349 use 4 units, 350-399 use 5 units, >399 use 6 units and call provider. Max daily dose 50 units. [Paused] insulin glargine (Lantus) 100 UNIT/ML injection vial [...] 1 tablet by mouth daily. magnesium oxide (Mag-Ox) 400 (240 Mg) MG tablet Take 1 tablet by mouth 2 times a day. 60 tablet 0 metoprolol succinate XL (Toprol-XL) 50 MG 24 hr tablet Take 1 tablet by mouth every morning. Do notcrush or chew. ondansetron (Zofran) 8 MG tablet Take 1 tablet by mouth every 8 hours as needed for nausea or vomiting. oxyCODONE (Roxicodone) 5 MG immediate release tablet Take 1.5 tablets by mouth 3 times a day. Ozempic, 1 MG/DOSE, 4 MG/3ML solution pen-injector Inject 1 mg under the skin 1 time per week. pregabalin (Lyrica) 25 MG capsule Take 1 capsule by mouth 2 times a day. promethazine (Phenergan) 25 MG tablet Take 1 tablet by mouth every 6 hours as needed for nausea or vomiting. Rimegepant Sulfate (NURTEC PO) Take 1 tablet by mouth as needed. rOPINIRole (Requip) 1 MG tablet Take 1 tablet by mouth 3 times a day. spironolactone (Aldactone) 100 MG tablet Take 1 tablet by mouth 2 times a day. valACYclovir (Valtrex) 500 MG tablet Take 1 tablet by mouth every morning. zinc sulfate (Zincate) 220 (50 Zn) MG capsule Take 1 capsule by mouth 2 times a day. 240 capsule 2 [DISCONTINUED] rifAXIMin (Xifaxan) 550 MG tablet Take 1 tablet by mouth 2 times a day. Medicaid Applicant 180 tablet 0 [DISCONTINUED] diphenhydrAMINE (Benadryl) 50 MG tablet - 50 mg PO [address] prior to [address] scan on 05-25-25 1 tablet 0 [DISCONTINUED] predniSONE (Deltasone) 50 MG tablet 50 mg PO, 13, 7, and [address] Scanon 05-25-25. 3 tablet 0 * Asiya Hunter - 06/29/2025 1:47 PM EST Images from the original note were not included. 1639 Caring for Yourself after Contrast Imaging If you had ORAL contrast: ? You can go back to your normal diet and activities as tolerated. ? Drink plenty of fluids, unless told otherwise. If you had IV contrast: ? You can go back to your normal diet and activities as tolerated. ? Drink plenty of fluids, unless told otherwise. ? Leave a bandage on the site for 30 minutes (where the IV was inserted or blood was drawn). If you had Intravesical (bladder) contrast: ? Return to normal diet and activity. What you need to know about delayed reaction to IV contrast What is IV Contrast? ? Contrast is a dye that is put into your body through an IV. ? It is used for imaging scans such as CT scans and MRIs. ? The contrast makes blood vessels, organs and other parts of your body show up better on the scan. What do I need to do after IV contrast? ? Drink lots of fluids. This will help flush the contrast out of your system. ? Drink 2-3 extra glasses or bottles of water within 4 hours of your scan. What is a contrast reaction? ? A contrast reaction is a bad side effect from the contrast dye. ? It is rare but it does happen. ? They can be mild - such as sneezing, itching, or hives. ? They can be severe - such as trouble breathing, throat swelling, and irregular heart beat. When do these reactions happen? ? They often happen right after the contrast is injected. ? Some happen hours after going home. Go to the nearest Emergency Department right away if you have any of these symptoms after you leavethe clinic or hospital. ? Sneezing ? Itching in your mouth, throat, eyes, ears, or skin ? Rash or hives ? Throwing up or stomach sickness ? High heart rate or ?racing? of your heart ? Feeling dizzy or woozy ? Feeling short of breath or like you can?t take a deep breath ? Feeling very anxious for no other reason It is very important that these reactions be treated. Tell the doctor or nurse that you are having a reaction to IV contrast dye. Do not ignore any sign of a reaction! All reactions must be assessed by a doctor. Call 911 if you are alone and your reaction is more than mild sneezing or itching. If you have a mild reaction, call to speak with a Radiologist, explain that you havehad a contrast reaction, as this needs to be added to your medical record. * Care Plan - Nela Lebron RN - 06/29/2025 1:32 PM EST Problem: Adult Inpatient Plan of Care Goal: Plan of Care Review Outcome: Ongoing, Progressing Flowsheets (Taken 06/29/2025 1331) Progress: improving Plan of Care Reviewed With: patient Goal: Patient-Specific Goal (Individualized) Outcome: Ongoing, Progressing Flowsheets (Taken 06/29/2025799) Patient/Family-Specific Goals (Include Timeframe): pt will remain free from harm during shift Individualized Care Needs: safety Anxieties, Fears or Concerns: none stated Goal: Absence of Hospital-Acquired Illness or Injury Outcome: Ongoing, Progressing Intervention: Identify and Manage Fall Risk Flowsheets (Taken 06/29/2025799) Safety Promotion/Fall Prevention: activity supervised clutter-free environment maintained fall prevention program maintained lighting adjusted mobility aid in reach nonskid shoes/slippers when out of bed safety round/check completed Intervention: Prevent Skin Injury Flowsheets (Taken 06/29/2025799) Body Position: weight shifting Skin Protection: incontinence pads utilized skin sealant/moisture barrier applied Intervention: Prevent and Manage VTE (Venous Thromboembolism) Risk Flowsheets (Taken 06/29/2025799) VTE Prevention/Management: SCDs (sequential compression devices) off Intervention: Prevent Infection Flowsheets (Taken 06/29/2025799) Infection Prevention: environmental surveillance performed personal protective equipment utilized rest/sleep promoted single patient room provided Goal: Optimal Comfort and Wellbeing Outcome: Ongoing, Progressing Intervention: Monitor Pain and Promote Comfort Flowsheets (Taken 06/29/2025799) Pain Management Interventions: pain management plan reviewed with patient/caregiver pillow support provided position adjusted quiet environment facilitated relaxation techniques promoted rest Intervention: Provide Person-Centered Care Flowsheets (Taken 06/29/2025799) Trust Relationship/Rapport: care explained emotional support provided questions answered questions encouraged thoughts/feelings acknowledged Problem: Fall Injury Risk Goal: Absence of Fall and Fall-Related Injury Outcome: Ongoing, Progressing Intervention: Identify and Manage Contributors Flowsheets (Taken 06/29/2025799) Medication Review/Management: medications reviewed Self-Care Promotion: independence encouraged Intervention: Promote Injury-Free Environment Flowsheets (Taken 06/29/2025799) Safety Promotion/Fall Prevention: activity supervised clutter-free environment maintained fall prevention program maintained lighting adjusted mobility aid in reach nonskid shoes/slippers when out of bed safety round/check completed Problem: Acute Kidney Injury/Impairment Goal: Fluid and Electrolyte Balance Outcome: Ongoing, Progressing Intervention: Monitor and Manage Fluid and Electrolyte Balance Flowsheets (Taken 06/29/2025799) Fluid/Electrolyte Management: fluids restricted fluids provided Goal: Improved Oral Intake Outcome: Ongoing, Progressing Intervention: Promote and Optimize Oral Intake Flowsheets (Taken 06/29/2025799) Oral Nutrition Promotion: rest periods promoted social interaction promoted Nutrition Interventions: food preferences provided frequent small meals provided meal set-up provided Goal: Effective Renal Function Outcome: Ongoing, Progressing Intervention: Monitor and Support Renal Function Flowsheets (Taken 06/29/2025799) Stabilization Measures: legs elevated Medication Review/Management: medications reviewed Problem: Pain Acute Goal: Optimal Pain Control and Function Outcome: Ongoing, Progressing Intervention: Optimize Psychosocial Wellbeing Flowsheets (Taken 06/29/2025799) Supportive Measures: relaxation techniques promoted self-care encouraged Diversional Activities: smartphone television Spiritual Activities Assistance: affirmation provided Intervention: Develop Pain Management Plan Flowsheets (Taken 06/29/2025799) Pain Management Interventions: pain management plan reviewed with patient/caregiver pillow support provided position adjusted quiet environment facilitated relaxation techniques promoted rest Intervention: Prevent or Manage Pain Flowsheets (Taken 06/29/2025799) Sensory Stimulation Regulation: care clustered lighting decreased quiet environment promoted television on Complementary Therapy: music therapy provided Bowel Elimination Promotion: adequate fluid intake promoted Sleep/Rest Enhancement: awakenings minimized natural light exposure provided regular sleep/rest pattern promoted relaxation techniques promoted room darkened Medication Review/Management: medications reviewed Problem: Anemia Goal: Anemia Symptom Improvement Outcome: Ongoing, Progressing Intervention: Monitor and Manage Anemia Flowsheets (Taken 06/29/2025799) Oral Nutrition Promotion: rest periods promoted social interaction promoted Safety Promotion/Fall Prevention: activity supervised clutter-free environment maintained fall prevention program maintained lighting adjusted mobility aid in reach nonskid shoes/slippers when out of bed safety round/check completed Fatigue Management: frequent rest breaks encouraged activity schedule adjusted activity assistance provided Problem: Fluid Volume Deficit Goal: Fluid Balance Outcome: Ongoing, Progressing Intervention: Monitor and Manage Hypovolemia Flowsheets (Taken 06/29/2025 0800) Fluid/Electrolyte Management: fluids restricted fluids provided * Progress Notes - Damir Milton MD - 06/29/2025 7:57 AM EST Images from the original note were not included. Department of Surgery Division of General, Endocrine, and Metabolic Surgery Surgery Progress Note 06/29/2025 Avis Pemberton Subjective Subjective: HPI Avis Pemberton is a 54 y.o. female with PMHx significant for decompensated cirrhosis, CHF, HTN, type 2 DM, chronic pain, and anxiety/depression who was admitted to [facility] for KENDRA and decompensated cirrhosis who EGS was consulted for right-sided abdominal pain and CT images consistent with stercoral colitis and evidence of intramural air at the splenic flexure. Interval: Patient had 2 BMs after receiving enema yesterday 06/28. No additional bowel movements, passing flatus this a.m.. Symptoms improved today compared to yesterday. Tolerating by mouth intake without nausea/vomiting. Edited by: Damir Milton MD at 06/29/2025 0751 Review of Systems: Relevant review of systems was obtained as able and is negative unless stated above in HPI. Objective Objective: Vital signs: Vitals: 06/29/25 0334 BP: 111/71 Pulse: 99 Resp: 18 Temp: 36.6 ??C (97.9 ??F) SpO2: 97% Physical Exam: GEN: no apparent distress, well nourished female HENT: atraumatic, normocephalic EYES: no scleral icterus, no visible conjunctival hemorrhage RESP: no respiratory distress, symmetric chest rise CV: appears well perfused, normal rate ABD: soft, non-distended, nontender MSK/EXT: no apparent deformities, strength/tone normal : deferred NEURO: alert and oriented, no focal CN deficits PSYCH: appropriate affect, mood congruent, interactive SKIN: pink, warm Intake/Output Summary (Last 24 hours) at 06/29/2025 0801 Last data filed at 06/29/2025 0639 Gross per 24 hour Intake 1612.21 ml Output 1550 ml Net 62.21 ml Lines/Drains/Tubes: Patient Lines/Drains/Airways Status Active Airway None Output by Drain (mL) 06/27/25 0700 - 06/27/25 1859 06/27/25 1900 - 06/28/25 0659 06/28/25 0700 - 06/28/25 1859 06/28/25 1900 - 06/29/25 0659 06/29/25 0700 - 06/29/25 0801 Patient has no LDAs of requested type attached. Labs in last 18 hours: CBC WBC 3.70 Hb 9.0 (L) Plt 34 (L) Hct 26.3 (L) ANC ?? INR 1.8 (H), PTT ??, Anti-Xa ?? MCV 104 (H) BMP Na 133 (L) Cl 99 BUN 17 Glu 138 (H) K 4.0 Co2 28 Cr 1.32 (H) Ca 8.6 (L) iCa ?? Mg 2.3, Phos ?? Lactate ?? LFT AST 58 (H) AlkPhos 166 (H) T Prot 5.6 (L) ALK 34 Bili 2.3 (H) Alb ?? D.Bili ?? Lab Trends: H/H Results from last 7 days Lab Units 06/29/25 0339 06/28/25 0615 06/27/25 0304 HEMOGLOBIN g/dL 9.0* 9.9* 10.5* HEMATOCRIT % 26.3* 28.6* 31.0* INR Results from last 7 days Lab Units 06/29/25 0339 06/28/25 0615 06/27/25 0304 INR 1.8* 1.9* 1.8* Cr Results from last 7 days Lab Units 06/29/25 0339 06/28/25 0615 06/27/25 0851 CREATININE mg/dL 1.32* 1.48* 1.43* Lactate Results from last 7 days Lab Units 06/28/25 0826 LACTIC ACID, WHOLE B mmol/L 1.7* Radiographic Interpretation: I have reviewed the imaging above and agree with the radiologist interpretation. Medications reviewed. Vital signs reviewed. Labs reviewed. Assessment/Plan Assessment and Plan: Avis Pemberton is a 54 y.o. female with PMHx significant for decompensated cirrhosis, CHF, HTN, type 2 DM, chronic pain, and anxiety/depression who was admitted to [facility] for KENDRA and decompensated cirrhosis who has now had 1 day of right-sided abdominal pain and CT images consistent with stercoral colitis and evidence of intramural air at the splenic flexure. Had bowel movements after enema, recommend daily suppositories. PO stool softeners once having increased bowel function. EGS will sign off, please reach out for worsening abdominal pain. Dispo: EGS will sign off Damir Milton MD General, Endocrine, and Metabolic Surgery Cosigned by Gwen Kenney MD at 07/02/2025 11:59 PM EST Associated attestation - Gwen Kenney MD - 07/02/2025 11:59 PM EST I saw and evaluated the patient with the resident/fellow. I discussed the case with the resident/fellow and agree with the findings and plan as documented. * Care Plan - Meche Coreas RN - 06/28/2025 10:39 PM EST Problem: Adult Inpatient Plan of Care Goal: Plan of Care Review Outcome: Ongoing, Progressing Flowsheets Taken 06/28/2025 2237 Progress: improving Plan of Care Reviewed With: patient Taken 06/28/2025 0414 Outcome Evaluation: Pt. will verbalize adequate pain control during this shift Goal: Patient-Specific Goal (Individualized) Outcome: Ongoing, Progressing Flowsheets (Taken 06/28/20251999) Patient/Family-Specific Goals (Include Timeframe): Pt. will verbalize adequate pain control during this shift Individualized Care Needs: pain management Anxieties, Fears or Concerns: pain Goal: Absence of Hospital-Acquired Illness or Injury Outcome: Ongoing, Progressing Intervention: Identify and Manage Fall Risk Flowsheets (Taken 06/28/20251999) Safety Promotion/Fall Prevention: activity supervised clutter-free environment maintained lighting adjusted mobility aid in reach nonskid shoes/slippers when out of bed safety round/check completed room organization consistent Intervention: Prevent Skin Injury Flowsheets (Taken 06/28/20251999) Body Position: weight shifting Skin Protection: incontinence pads utilized protective footwear used Intervention: Prevent and Manage VTE (Venous Thromboembolism) Risk Flowsheets (Taken 06/28/20251999) VTE Prevention/Management: bilateral SCDs (sequential compression devices) on previous patient education reinforced Intervention: Prevent Infection Flowsheets (Taken 06/28/2025 3007) Infection Prevention: hand hygiene promoted personal protective equipment utilized cohorting utilized environmental surveillance performed Goal: Optimal Comfort and Wellbeing Outcome: Ongoing, Progressing Intervention: Monitor Pain and Promote Comfort Flowsheets (Taken 06/28/20252207) Pain Management Interventions: medication (see MAR) Intervention: Provide Person-Centered Care Flowsheets (Taken 06/28/20251999) Trust Relationship/Rapport: care explained choices provided emotional support provided questions answered questions encouraged thoughts/feelings acknowledged * Progress Notes - Alison Burns MD - 06/28/2025 7:51 PM EST Subjective Overnight, consulted EGS for stercoral colitis concerning for mesenteric ischemic. S/p enema and improved abdominal pain but persists. No blood in stool. Wt improved to 203 from 215 admissions. Leg swelling is improved. Hold diuresis. Sister at bedside. She is wondering to have her psych apt to be scheduled sooner. Review of Systems Complete review of system is negative except mentioned in subjective finding. '' Objective Vitals Temp: [36.8 ??C (98.2 ??F)-37.2 ??C (99 ??F)] 37 ??C (98.6 ??F) Heart Rate: [100-111] 103 Resp: [15-18] 15 BP: (97-121)/(57-75) 104/61 Physical Exam GENERAL:Alert and orientated, cooperative, in no acute distress. HEENT:Normal conjunctiva, no scleral icterus, mucous membranes- moist, no oral thrush, no sinus tenderness. CVS:Regular rhythm, normal rate, normal S1/S2, no murmur. RESPIRATORY: Normal breath sounds,clear on auscultation, no wheezing or rales. GASTROINTESTINAL:Normal BS. Abdomen-soft, noted tenderness in upper quadrant region and n distended. No ascites or organomegalies MUSCULOSKELETAL:Extremities symmetric , + pedal edema. INTEGUMENTARY:Warm, no rashes or cyanosis. NEUROLOGIC:Non-focal. Cranial nerves II-XII grossly intact. PSYCHIATRIC: Appropriate affect Assessment & Plan KENDRA (acute kidney injury) Anxiety and depression Type 2 diabetes mellitus GERD (gastroesophageal reflux disease) Hyperlipemia Obesity Essential hypertension Iron (Fe) deficiency anemia Congestive heart failure Hypotension, unspecified hypotension type #Acute Kidney Injury c/b decompensated cirrhosis Generalized Anasarca - Baseline creatinine 0.90-1.0; 1.54 on admission -Urine studies showed intrinsic renal disease. -pt has been gaining wt since last month . Baseline wt around 205. Increased leg swelling . -received albumin 5.5 bags at the infusion clinic but no improvement in renal function. -clinically hypervolemic. Gave Bumex 4 mg PO given but had only 300 ml urine output. Gave IV bumex 2 mg x 2 days and had significant urine output . -sCr stable at 1.4. wt improved and improved leg swelling. Plan: -will hold diuresis today -fluid restriction 1800 ml/day - Renally dose medications; avoid nephrotoxins - Strict I&O -continue to hold spironolactone - Renal function panel daily Diffuse generalized abdominal pain with tenderness -CT abdomen showed sterocoral colitis with gas concerning for mesenteric ischemia -consulted EGS. Placed npo. Started zosyn. -given enema and had improved pain but still persists . #Hypotension - Asymptomatic. Has soft BP at baseline. No s/s of sepsis or infection. #Decompensated cirrhosis - follows with [facility] - MELD 23 ( 08/26/24) - Ascites:Paracentesis Hx - 06/15, drained 3L . Home bumex 2 mg BID , spironolactone 100 mg BID. - HE: HE not present on admission. Lactulose & Rifaximin (insurance did not cover) , Zinc - EV: EGD, : non-obstructing schatzki ring, 2 cm hiatal hernia, non bleeding GAVE s/p APC; metoprolol . Hold metoprolol in the setting of KENDRA. - HCC: q.6 months, AFP: 5.9 on 05/28; US liver 04/2024: without focal lesion -Transplant candidacy : not socially cleared yet. Need repeat ABG and CT abdomen liver protocol. Needs to see psych in Jul Plan -consult GI and liver transplant. - 2g Na+ 2CC diet - No NSAIDs - hold home diuretics & Lactulose 2/2 KENDRA - continue remaining home meds #Type 2 DM - A1C:5.4 - Home regimen: Ozempic 1 mg weekly Jardiance 25 mg dialy Lanuts 10 units daily when FSBS > 150 Aspart sliding scale Plan - hold ozempic & Jardiance - hospital regimen: ISS pre protocol #Anemia - Hgb 10.4, Baseline 10-; Iron Supplement, transfuse for Hgb < 7 #Thrombocytopenia - sec to cirrhosis. Transfuse for plt < 10 or <50 with active signs of bleeding #CHF - TTE, 05/28: EF 60% LA dilated; Stress Test, 05/28: no significant changes; Bumex, Spirolactone, Jardiance, all on hold #HTN - metoprolol 12.5 mg BID, lisinopril 2.5 mg daily, spironolactone #RLS - ropinirole 1 mg daily #HLD - simvastatin? #Anxiety/Depression - Buspar 7.5 mg BID, Pristiq 50 mg Daily #Neuropathy/Chronic pain - pregabalin 25 mg BID, Cyclobenzaprine 10 mg TID PRN, Oxycodone 5 mg q.6 hrs PRN #GERD - lansoprazole 30 mg daily #Migraines - Nurtec #Herpes - Valacyclovir 500 mg daily #Obesity - BMI 36.48, complicates all aspects of care Diet:regular, HPHC, < 2 gm Na < 2 L DVT prophylaxis: AC contraindicated in the setting of GI bleed and thrombocytopenia Code status:full code Disposition: Follow up: #Code Status - Full Code Medically Ready for Discharge:Anticipated in 2-4 Days * Progress Notes - Marisela Ruth MBBS - 06/28/2025 6:07 PM EST Gastroenterology and hepatology progress note # 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 Ascites: On Aldactone 200 mg and Bumex 1 mg BID Hepatic encephalopathy: Prior history. 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 SBP: No history HCC: no masses on recent CT. AFP normal. KENDRA- Currently has Cr of 1.5, initially improved with diuresis, now trending up again - Fractional Excretion of Urea (FEUrea) from [facility] on 06/28/2025 RESULT SUMMARY: 53.1 % FEUrea >35% suggests intrinsic renal disease INPUTS: BUN or serum urea --> 21 mg/dL Serum creatinine --> 1.46 mg/dL Urine urea --> 191 mg/dL Urine creatinine --> 25 mg/dL Labs concerning for intra-renal disease but response to diuresis and then worsening might indicate sensitivity to diuretics. Still concerns for HRS-KENDRA Plan: Ascites/ KENDRA Sodium restriction <2g/day Received diuresis as Bumex 6 mg on 06/26 and 4 mg on 06/27, off aldactone. Hold for now. Repeat Creatinine while being off diuretics, if it improves further, would diurese gently and get advanced HF team on board If Cr worsens, start Midodrine Octreotide for possible HRS-KENDRA Infectious workup including blood Cx, CXR, UA negative Get a paracentesis to rule out SBP if possible, IR could not find a pocket On CT patient likely has stercoral colitis, but intramural bowel gas is mentioned w/o portal gas. Less likely to be mesenteric ischemia , Sx on board Monitor for electrolyte disturbances, renal function Hepatic Encephalopathy Lactulose 10-20g TID PRN for 3-4 BM Continue rifaximin Nutritional support: 1.25 g/kg protein/day, nighttime snack Varices/Variceal Bleeding No prior hx of variceal bleeding. Will continue to monitor Hgb trend, if significantly down-ternding, will plan for inpatient EGD. Spontaneous Bacterial Peritonitis No prior hx of SBP. Diagnostic paracentesis if pocket is identifiable Transplant Evaluation Undergoing liver transplant evaluation Subjective Seen on bedside Afebrile, slightly hypotensive No leukocytosis, hemoglobin stable around 9.9 Bilirubin slightly worsened to 2.6 Concerns for ischemic colitis yesterday, evaluated by surgery, improved distention and tenderness after having a bowel movement Creatinine worsened to 1.5 today Patient is still hypervolemic on examination with bilateral lower extremity edema Review of Systems As mentioned in HPI Objective Vitals Temp: [36.8 ??C (98.2 ??F)-37.2 ??C (99 ??F)] 37.1 ??C (98.8 ??F) Heart Rate: [100-111] 102 Resp: [15-18] 16 BP: (97-121)/(57-75) 106/65 Physical Exam Constitutional: Appearance: Normal appearance. She is obese. HENT: Mouth/Throat: Mouth: Mucous membranes are moist. Eyes: General: No scleral icterus. Cardiovascular: Rate and Rhythm: Tachycardia present. Pulses: Normal pulses. Pulmonary: Effort: Pulmonary effort is normal. Abdominal: General: There is distension. Musculoskeletal: Right lower leg: Edema present. Left lower leg: Edema present. Skin: Coloration: Skin is not jaundiced. Neurological: Mental Status: She is oriented to person, place, and time. === 06/25/25 === US ABDOMEN DOPPLER LIMITED - Narrative - CLINICAL INDICATION: PVT rule out TECHNIQUE: Grayscale and Doppler images of the portal vein. COMPARISON: Same day CT, May 25, 2025 FINDINGS: Liver: Cirrhotic morphology. Perihepatic ascites. Main portal vein: Portal vein measures 1 cm in diameter with antegrade flow. Flow velocities measure up to 28.5 cm/s. Possible artifacts seen in image 5 and 18. - Impression - Grossly patent portal vein with antegrade flow. CHAN Yusuf Cosigned by Nj Johns MD at 06/29/2025 9:34 PM EST Associated attestation - Nj Johns MD - 06/29/2025 9:34 PM EST I saw and evaluated the patient with the fellow. I discussed the case with the fellow and agree with the findings and plan as documented. Nj Johns MD * Progress Notes - Betzaida Bardales - 06/28/2025 3:36 PM EST Case Management Adult Progress Note Avis Pemberton 54 y.o. female CSN: [id number] Admission: 06/25/2025 4:58 PM Primary Problem: KENDRA (acute kidney injury) Comments Per provider, patient is not medically ready for discharge today. Transplant following; patient still pending medical portion of evaluation and social clearance. No current CM needs. CM will follow up. Betzaida Bardales * Care Plan - Taina Castellon RN - 06/28/2025 11:05 AM EST Problem: Adult Inpatient Plan of Care Goal: Plan of Care Review Outcome: Ongoing, Progressing Flowsheets (Taken 06/28/2025 1104) Progress: improving Plan of Care Reviewed With: patient Goal: Patient-Specific Goal (Individualized) Outcome: Ongoing, Progressing Flowsheets (Taken 06/28/2025 0800) Patient/Family-Specific Goals (Include Timeframe): pt will report adequate pain control this shift Individualized Care Needs: pain management Anxieties, Fears or Concerns: pain Problem: Fall Injury Risk Goal: Absence of Fall and Fall-Related Injury Outcome: Ongoing, Progressing Intervention: Promote Injury-Free Environment Flowsheets (Taken 06/28/2025 1104) Safety Promotion/Fall Prevention: activity supervised assistive device/personal items within reach clutter-free environment maintained fall prevention program maintained safety round/check completed Problem: Acute Kidney Injury/Impairment Goal: Fluid and Electrolyte Balance Outcome: Ongoing, Progressing Intervention: Monitor and Manage Fluid and Electrolyte Balance Flowsheets (Taken 06/28/2025 1104) Fluid/Electrolyte Management: fluids restricted fluids adjusted Problem: Pain Acute Goal: Optimal Pain Control and Function Outcome: Ongoing, Progressing Intervention: Optimize Psychosocial Wellbeing Flowsheets (Taken 06/28/2025 1104) Supportive Measures: relaxation techniques promoted verbalization of feelings encouraged Diversional Activities: smartphone television Spiritual Activities Assistance: affirmation provided spiritual support provided Problem: Anemia Goal: Anemia Symptom Improvement Outcome: Ongoing, Progressing Intervention: Monitor and Manage Anemia Flowsheets (Taken 06/28/2025 1104) Oral Nutrition Promotion: rest periods promoted Safety Promotion/Fall Prevention: activity supervised assistive device/personal items within reach clutter-free environment maintained fall prevention program maintained safety round/check completed Fatigue Management: frequent rest breaks encouraged Problem: Fluid Volume Deficit Goal: Fluid Balance Outcome: Ongoing, Progressing Intervention: Monitor and Manage Hypovolemia Flowsheets (Taken 06/28/2025 1104) Fluid/Electrolyte Management: fluids restricted fluids adjusted * Progress Notes - Meliton Wheat MD - 06/28/2025 10:19 AM EST Subjective Consult overnight for stercoral colitis. Received an enema this morning and had a bowel movement. Feels somewhat better after. Still having some pain. Review of Systems Relevant review of systems was obtained as able and is negative unless stated above in HPI. Objective Vitals Temp: [36.8 ??C (98.2 ??F)-37.2 ??C (99 ??F)] 36.8 ??C (98.2 ??F) Heart Rate: [97-111] 111 Resp: [15-18] 15 BP: (99-121)/(61-75) 104/67 Physical Exam GEN: no apparent distress HENT: atraumatic, normocephalic RESP: no respiratory distress, symmetric chest rise CV: appears well perfused, normal rate ABD: generalized abdominal tenderness worse in the lower quadrants. Soft. Somewhat distended. MSK/EXT: no apparent deformities SKIN: warm and well perfused : deferred NEURO/PSYCH: baseline' Assessment & Plan Consult for stercoral colitis. Symptoms improved after enema and bowel movement this morning. Stillsomewhat tender but not peritonitic. Would recommend continued suppositories and increasing PO bowel reg. Okay for regular diet at this time. Will continue to follow at this time Cosigned by Gwen Kenney MD at 07/02/2025 11:46 PM EST Associated attestation - Gwen Kenney MD - 07/02/2025 11:46 PM EST I saw and evaluated the patient with the resident/fellow. I discussed the case with the resident/fellow and agree with the findings and plan as documented. * Consults - Khurram Hudson, CYDNEY, FELISA - 06/28/2025 8:58 AM ESTAssociated Order(s): IP CONSULT TO INTERVENTIONAL RADIOLOGY Images from the original note were not included. Vascular & Interventional Radiology Consult Note 06/28/2025 Patient: Avis Pemberton Date of : 1970/54 y.o. Requesting Service: [place] [id number] Requesting Provider: Alison Burns MD Chief Complaint: abdominal pain Reason for Consult: ascites History of Present Illness: Avis Pemberton is a 54 y.o. 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 CT Abd/Pelvis with small volume ascites, primarily perihepatic. History and admission information obtained from chart review of primary and consulting teams notation, as well as speaking directly to consulting team. The following portions of the chart were reviewed this encounter and updated as appropriate: Review of Systems: 14 point ROS negative except for above. Past Medical History[1] Surgical History[2] Social History[3] Family History: Personally reviewed & noncontributory. Allergies[4] Objective: All laboratory, images, tracings, and vital sign data are personally reviewed unless otherwise noted. VITALS: Temp: [36.8 ??C (98.2 ??F)-37.2 ??C (99 ??F)] 36.8 ??C (98.2 ??F) Heart Rate: [97-111] 111 Resp: [15-18] 15 BP: (99-121)/(61-75) 104/67 Weight: 96.4 kg (212 lb 8.4 oz) Body mass index is 35.57 kg/m??. I & O SUMMARY I/O last 3 completed shifts: In: 1020 (10.9 mL/kg) [P.O.:1020] Out: 4050 (43.1 mL/kg) [Urine:4050 (1.2 mL/kg/hr)] Weight: 94 kg I/O this shift: In: 221.6 [IV Piggyback:221.6] Out: - MEDICATIONS: Current Medications[5] LABS (PAST 18Labs in last 18 hours) CBC WBC 4.39 Hb 9.9 (L) Plt 39 (L) Hct 28.6 (L) INR 1.9 (H) PTT ?? Anti-Xa ?? BMP Na 135 (L) Cl 99 BUN 19 Glu 121 (H) K 4.3 Co2 30 (H) Cr 1.48 (H) Ca 8.9 Mg 2.2 Phos ?? Lactate 1.7 (H) LFT AST 60 (H) AlkPhos 156 (H) T Prot 5.7 (L) ALK 37 (H) Bili 2.6 (H) Alb ?? D.Bili ?? HOURS) EXAM: Deferred, patient located at [facility] Radiographics/Diagnostics: Imaging personally reviewed and reviewed with attending. === 06/25/25 === CT ABDOMEN PELVIS WO IV CONTRAST - Narrative - CLINICAL INDICATION: LUQ and epigastric abdominal pain, hx of cirrhosis and decompensation TECHNIQUE: Imaging of the abdomen and pelvis was performed from lung bases through pubic symphysis, using spiral technique, without administration of IV contrast. Reformatted images in the coronal and sagittal planes were generated from the axial data set to facilitate diagnostic accuracy. Total DLP (Dose-Length Product): 700.02 mGy.cm. Please note: The reported value represents the total of one or more individual components during the CT acquisition on this date and at this time, and as such, the same value may appear in more than one CT report depending on the interpreting/reporting physicians. COMPARISON: October 24, 2023 FINDINGS: Lack of IV contrast limits evaluation of abdominal and pelvic organs. Lung Bases: Small right pleural effusion. Liver/Gallbladder/Biliary System: Cirrhotic morphology of liver. Gallbladder surgically absent. No intra or extrahepatic ductal dilatation. Spleen: Borderline splenomegaly. Pancreas: The pancreas is normal. Adrenals: The adrenals are morphologically unremarkable. Kidneys: The kidneys are normal. Punctate stone in the left lower pole. No hydronephrosis. Bowel/Mesentery: Intraluminal contrast within the stomach. The small bowel loops are not dilated. Moderate pancolonic stool burden. Mild thickening of the splenic flexure with focal intramural gas concern for sacral colitis (series 3 image 99). The appendix is not visualized. No pneumoperitoneum. Lary congested mesentery. No intra-abdominal fluid collections. Vessels/Lymph Nodes: Atherosclerosis without aneurysm. No lymphadenopathy within the abdomen or pelvis. Fluid Survey: Moderate volume ascites. Pelvis: Unremarkable urinary bladder. No pelvic mass. Body Wall: Anasarca. Bones: No acute fracture. - Impression - Redemonstrated cirrhotic morphology with sequela of portal hypertension including splenomegaly. Interval moderate volume ascites and significant mesenteric edema secondary to portal hypertension. Moderate pancolonic stool burden. Mild bowel wall thickening of the sigmoid colon with questionableintramural gas concern for stercoral colitis. Small right pleural effusion. CRITICAL RESULT: No. COMMUNICATION: Per this written report. Drafted by Iris Santana MD on 06/27/2025 5:04 PM Final report signed by Iris Santana MD on 06/27/2025 5:12 PM === 06/25/25 === XR CHEST 1 VIEW - Narrative - CLINICAL INDICATION: Sepsis Workup TECHNIQUE: XR CHEST 1 VIEW COMPARISON: 05/25/2025 FINDINGS: Similar cardiomediastinal contour. Mild bibasilar atelectasis. No acute airspace opacity, large pleural effusion, pneumothorax, or acute osseous finding. - Impression - No acute finding CRITICAL RESULT: No. COMMUNICATION: Per this written report. Drafted by Tyler Chino MD on 06/25/2025 6:34 PM Final report signed by Tyler Chino MD on 06/25/2025 6:35 PM Echo, Adult Transthoracic Complete Result Date: 05/28/2025 Left Ventricle: The left ventricle is not well visualized. Based on the linear dimension and/or 2D volumes, the left ventricle is normal in size. There is normal left ventricular myocardial thicknessand mass. No left ventricular mass or thrombus is seen. The left ventricular systolic function is normal. The LVEF as measured by biplane volume is 60%. The left ventricular filling pressure is normal. Due to poor image quality, comprehensive regional wall motion was not interpretable; but no focalwall motion abnormalities were seen in the visualized segments. Left Atrium: The left atrium is dilated by visual assessment. There is appearance of a few agitated saline bubbles in the left heart after maneuvers to increase right sided pressure consistent with a small patent foramen ovale (PFO) ormild transpulmonary transit. There is no recent study available for direct [id number] comparison. Assessment & Plan: Cirrhosis, Decompensated Ascites KENDRA - MELD 3.0: 24 at 06/28/2025 6:15 AM MELD-Na: 22 at 06/28/2025 6:15 AM Calculated from: Serum Creatinine: 1.48 mg/dL at 06/28/2025 6:15 AM Serum Sodium: 135 mmol/L at 06/28/2025 6:15 AM Total Bilirubin: 2.6 mg/dL at 06/28/2025 6:15 AM Serum Albumin: 2.9 g/dL at 06/28/2025 6:15 AM INR(ratio): 1.9 at 06/28/2025 6:15 AM Age at listing (hypothetical): 54 years Sex: Female at 06/28/2025 6:15 AM - INR 1.9 (H), Plt 39 (L) - Personally reviewed US abdomen with small volume ascites - VSS, Afebrile PLAN: - Not enough fluid noted on US/CT for safe percutaneous procedure - Recommend conservative management at this time Thank you for allowing us to participate in the care of this patient. Khurram Hudson, FIRST SAMPLER, DNP Vascular & Interventional Radiology [1] Past Medical History: Diagnosis Date Anemia [...] OTHER SURGICAL HISTORY N/A Exploratory [facility] OVARIAN CYST DRAINAGE N/A Aspiration Of Ovarian Cyst from [facility] TOTAL ABDOMINAL HYSTERECTOMY N/A 2011 [facility] [3] Social History Tobacco Use Smoking status: Former Current packs/day: 0.00 Average packs/day: 0.1 packs/day for 10.6 years (1.1 ttl pk-yrs) Types: Cigarettes Start date: 2011 Quit date: 02/2022 Years since quittin.3 Passive exposure: Past Smokeless tobacco: Never Vaping Use Vaping status: Never Used Substance Use Topics Alcohol use: Not Currently Comment: not drinking since 2017 Drug use: Not Currently Types: Marijuana Comment: May 2024 last used [4] Allergies Allergen Reactions Bactrim [Sulfamethoxazole-Trimethoprim] Hives Pt reports full body hives Povidone Iodine Itching and Rash With Betadine (topical). Vortioxetine Itching and Rash Wound Dressing Adhesive Other - please document in the comment field Breaks out where skin comes in contact with adhesive. Prevents wound healing if over a wound (e.g.,incision opened up where covering incision from breast reduction surgery). [5] Current Facility-Administered Medications: acetaminophen (Tylenol) tablet 500 mg, 500 mg, Oral, q8h PRN, Anali, k A, FIRST SAMPLER, DNP, 500 mg at 06/27/25 114 busPIRone (Buspar) tablet 7.5 mg, 7.5 mg, Oral, BID, Anail, k A, FIRST SAMPLER, DNP, 7.5 mg at 06/27/252018 cyclobenzaprine (Flexeril) tablet 10 mg, 10 mg, Oral, TID PRN, Anali, k A, FIRST SAMPLER, DNP, 10 mg at 06/27/252053 desvenlafaxine (Pristiq) 24 hr tablet 50 mg, 50 mg, Oral, Daily, Anali, k A, FIRST SAMPLER, DNP, 50 mg at 06/27/252055 glucose (Glutose) 40 % oral gel 15-30 grams of glucose, 15-30 grams of glucose, Sublingual, q15 minPRN OR dextrose 10 % (D10W) bolus 125 mL, 125 mL, Intravenous, q15 min PRN OR dextrose 10 %(D10W) bolus 250 mL, 250 mL, Intravenous, q15 min PRN OR glucagon (human recombinant) injection1 mg, 1 mg, Intramuscular, q15 min PRN, Grady Briones APRN, DNP diclofenac (Voltaren) 1 % topical gel 2 g, 2 g, Topical, 4x daily PRN, Grady Briones APRN, DNP ferrous sulfate EC tablet 324 mg, 324 mg, Oral, Daily with breakfast, Grady Briones APRN, DNP, 324 mg at 06/27/252018 hydrOXYzine pamoate (Vistaril) capsule 25 mg, 25 mg, Oral, BID PRN, Alison Burns MD, 25 mg at 06/28/25 0444 insulin regular (HumuLIN R,NovoLIN R) 100 units/mL injection - Correction - Standard Dose, 0-5 Units, Subcutaneous, q6h Grant POWELL Zabu Myint, MD magnesium oxide (Mag-Ox) tablet 400 mg, 400 mg, Oral, BID, Grady Briones APRN, DNP, 400 mg at 06/27/252018 oxyCODONE (Roxicodone) immediate release tablet 5 mg, 5 mg, Oral, q4h PRN OR oxyCODONE (Roxicodone) immediate release tablet 10 mg, 10 mg, Oral, q4h PRDamon, Alison Burns MD pantoprazole (Protonix) EC tablet 40 mg, 40 mg, Oral, Daily, Grady Briones APRN, DNP, 40 mg at 06/27/25 0955 piperacillin-tazobactam (Zosyn) 4.5 g in sodium chloride 0.9% 100 mL IVPB (vial adapter required), 4.5 g, Intravenous, q6h, Sandi Judd MD, Stopped at 06/28/25 0741 prochlorperazine (Compazine) tablet 5 mg, 5 mg, Oral, q6h PRN OR prochlorperazine (Compazine) injection 2.5 mg, 2.5 mg, Intravenous, q6h PRN, Grady Briones APRN, DNP rifAXIMin (Xifaxan) tablet 550 mg, 550 mg, Oral, BID, Grady Briones APRN, DNP, 550 mg at rOPINIRole (Requip) tablet 1 mg, 1 mg, Oral, 4x daily PRN, Grady Briones APRN, DNP, 1 mg at 06/27/252053 senna (Senokot) tablet 17.2 mg, 17.2 mg, Oral, Nightly, Sandi Judd MD, 17.2 mg at 06/27/25 221 [COMPLETED] Insert peripheral IV, , , Once AND [COMPLETED] Saline lock IV, , , Once AND sodium chloride 0.9 % flush 10 mL, 10 mL, Intravenous, q12h, 10 mL at 06/28/25 0035 AND sodium chloride 0.9 % flush 10 mL, 10 mL, Intravenous, PRN, Grady Briones APRN, DNP valACYclovir (Valtrex) tablet 500 mg, 500 mg, Oral, q AM, Grady Briones APRN, DNP, 500 mg at 06/28/25 0545 zinc sulfate (Zincate) capsule 220 mg, 220 mg, Oral, BID, Grady Briones APRN, DNP, 220 mg at 06/27/25 2019 * Care Plan - Meche Coreas RN - 06/28/2025 4:22 AM EST Problem: Adult Inpatient Plan of Care Goal: Plan of Care Review Outcome: Ongoing, Progressing Flowsheets (Taken 06/28/2025 0414) Progress: improving Outcome Evaluation: Pt. will verbalize adequate pain control during this shift Plan of Care Reviewed With: patient Goal: Patient-Specific Goal (Individualized) Outcome: Ongoing, Progressing Flowsheets (Taken 06/27/20251999) Patient/Family-Specific Goals (Include Timeframe): Pt. will verbalize adequate pain control during this shift Individualized Care Needs: pain management Anxieties, Fears or Concerns: pain Goal: Absence of Hospital-Acquired Illness or Injury Outcome: Ongoing, Progressing Intervention: Identify and Manage Fall Risk Flowsheets (Taken 06/27/20251999) Safety Promotion/Fall Prevention: activity supervised clutter-free environment maintained lighting adjusted mobility aid in reach nonskid shoes/slippers when out of bed safety round/check completed room organization consistent Intervention: Prevent Skin Injury Flowsheets (Taken 06/27/20251999) Body Position: weight shifting Skin Protection: incontinence pads utilized protective footwear used Intervention: Prevent and Manage VTE (Venous Thromboembolism) Risk Flowsheets (Taken 06/28/2025 0000) VTE Prevention/Management: bilateral SCDs (sequential compression devices) on previous patient education reinforced Intervention: Prevent Infection Flowsheets (Taken 06/28/2025 0414) Infection Prevention: hand hygiene promoted personal protective equipment utilized cohorting utilized environmental surveillance performed Goal: Optimal Comfort and Wellbeing Outcome: Ongoing, Progressing Intervention: Monitor Pain and Promote Comfort Flowsheets (Taken 06/27/20252053) Pain Management Interventions: medication (see MAR) Intervention: Provide Person-Centered Care Flowsheets (Taken 06/27/20251999) Trust Relationship/Rapport: care explained choices provided emotional support provided questions answered questions encouraged thoughts/feelings acknowledged * Significant Event - Taina Rivera MD - 06/28/2025 2:38 AM EST Abdominal Exam 0230 - Patient asleep on arrival to the room but easily arousable. She reports that her pain continues to be present but manageable enough for her to sleep comfortably. - Patient continues to be tender to palpation, particularly in the right side of the abdomen. Thereis voluntary guarding. The abdomen remains soft. Exam is equivalent to previous. * Significant Event - Sandi Judd MD - 06/27/2025 9:[address] abd /pelvis reviewed, due to intramural gas, concern for colits. Surgery consulted Appreciate surgery recs she does not need emergent surgical intervention at this time but stercoral colitis is likely. We are suggesting 1) NPO 2) aggressive bowel regimen to be sure she is having bowel movements can be PO or per rectum 3) serial abdominal exams which I will complete overnight 4) IV abx with zosyn 5) CTA a/p if there is any clinical worsening * Progress Notes - Jonathan Drummond APRN, DNP - 06/27/2025 8:56 PM EST Abdominal Transplant Surgery Consult Follow-Up Note Reason for Consult: decompensated cirrhosis of liver CHIEF COMPLAINT: hypotension & lightheadedness 24 Hour HPI: No acute events overnight. Patient c/o abdominal pain during assessment. Patient reports she hasn???t had BM or passing flatus in the last 24 hours. Patient was tearful and asked why shewasn???t cleared for listing, informed her that she needs to see Dr. Cervantes (as scheduled) before being cleared for transplant. Patient verbalized understanding. No other complaints at this time. Edited by: Jonathan Drummond APRN, DNP at 06/27/2025 1446 MELD 3.0: 23 at 06/27/2025 8:51 AM MELD-Na: 22 at 06/27/2025 8:51 AM Calculated from: Serum Creatinine: 1.43 mg/dL at 06/27/2025 8:51 AM Serum Sodium: 133 mmol/L at 06/27/2025 8:51 AM Total Bilirubin: 2.1 mg/dL at 06/27/2025 8:51 AM Serum Albumin: 3 g/dL at 06/27/2025 8:51 AM INR(ratio): 1.8 at 06/27/2025 3:04 AM Age at listing (hypothetical): 54 years Sex: Female at 06/27/2025 8:51 AM MEDICATIONS Medications Ordered Prior to Encounter[1] REVIEW OF SYSTEMS 14-point ROS negative except as above in HPI. PHYSICAL EXAM GENERAL: ill appearing adult female EYES: PERRL + scleral icterus HENT: No lesions in anterior nares; no lesions in oropharynx, head atraumatic and normocephalic NECK: Supple. No thyromegaly or adenopathy. No JVD noted. The trachea appears midline. RESP: Symmetric expansion; no retractions. Clear to auscultation bilaterally. CARD: RRR, without appreciable murmur, rubs, or gallop. Extremities: +1 BLE edema, no cyanosis or clubbing. Pulses palpable x4. GI: obese abdomen; No organomegaly or masses. Nontender nondistended. Soft BS present x 4 quadrants. SKIN: No rash, sores, lesions or subcutaneous nodules. : voids NEURO:GCS 15 LABS Results from last 7 days Lab Units 06/27/25 0851 06/25/25 1657 06/21/25 0000 SODIUM mmol/L 133* < > -- SODIUM (NA) EXTERNAL mEq/L -- -- 134 POTASSIUM mmol/L 4.5 < > -- POTASSIUM (K) EXTERNAL -- -- 4.3 CHLORIDE mmol/L 96* < > -- CHLORIDE (CL) EXTERNAL -- -- 98 CO2 mmol/L 30* < > -- CARBON DIOXIDE (CO2) EXTERNAL -- -- 26 BUN mg/dL 22* < > -- BLOOD UREA NITROGEN (BUN) EXTERNAL -- -- 21 CREATININE mg/dL 1.43* < > -- CREATININE BLOOD EXTERNAL mg/dL -- -- 1.3 CALCIUM mg/dL 9.0 < > -- CALCIUM (CA) EXTERNAL -- -- 8.8 TOTAL PROTEIN EXTERNAL -- -- 7.3 BILIRUBIN TOTAL mg/dL 2.1* < > -- BILIRUBIN TOTAL EXTERNAL mg/dL -- -- 4.8 ALKALINE PHOSPHATASE U/L 211* < > -- ALKALINE PHOSPHATASE EXTERNAL -- -- 190 ALT U/L 37* < > -- ALT-ALANINE AMINOTRANSFERASE (SGPT) EXTERNAL -- -- 59 AST U/L 61* < > -- AST-ASPARTATE AMINOTRANSFERASE (SGOT) EXTERNAL -- -- 92 GLUCOSE mg/dL 164* < > -- GLUCOSE EXTERNAL -- -- 135 < > = values in this interval not displayed. Results from last 7 days Lab Units 06/27/25 0304 WBC 10*3/uL 4.62 HEMOGLOBIN g/dL 10.5* HEMATOCRIT % 31.0* PLATELETS 10*3/uL 51* Results from last 7 days Lab Units 06/27/25 0851 MAGNESIUM mg/dL 2.1 Lab Results Component Value Date CALCIUM 9.0 06/27/2025 PHOS 3.0 06/26/2025 MELD 3.0: 23 at 06/27/2025 8:51 AM MELD-Na: 22 at 06/27/2025 8:51 AM Calculated from: Serum Creatinine: 1.43 mg/dL at 06/27/2025 8:51 AM Serum Sodium: 133 mmol/L at 06/27/2025 8:51 AM Total Bilirubin: 2.1 mg/dL at 06/27/2025 8:51 AM Serum Albumin: 3 g/dL at 06/27/2025 8:51 AM INR(ratio): 1.8 at 06/27/2025 3:04 AM Age at listing (hypothetical): 54 years Sex: Female at 06/27/2025 8:51 AM ASSESSMENT/PLAN Avis Pemberton is a 54 y.o. female with a PMHx of decompensated cirrhosis, CHF, HTN, type 2 DM, chronic pain, and anxiety/depression who presented to the emergency department on 06/25 for evaluation of hypotension. Per chart review patient was at an infusion clinic receiving albumin, when she became hypotensive, lightheaded, and had a feeling of euphoria. Albumin was stopped and she presented to the emergency department where she was found to be anemic, thrombocytopenic, hyperglycemic, KENDRA, and elevated liver enzymes. She was admitted to hospital medicine for further workup and management.Transplant surgery was consulted as patient is undergoing evaluation for liver transplant. [facility] Ascites HE - MELD 3.0: 23 per labs 06/27/25, ABO A+ - GAS/Hepatology following, appreciate recs - on lactulose & rifaximin - Patient was discussed in liver selection committee on 06/25: The patient has started transplant evaluation testing; need ABG & CT Liver protocol to finish medical portion of evaluation as patient condition allows - 06/27: Discussed with the patient that she remains not socially cleared pending f/up with Dr. Cervantes outpatient (on 07/24/25). Once she completes medical evaluation testing and follows up with Dr. Cervantes, the patient will be discussed in liver selection committee. - Due to patients KENDRA, will hold off on CT Liver protocol. Will continue to monitor and likely order MR Abd w/ and w/out IV contrast Liver protocol - Transplant surgery will continue to follow - rest of care per primary team KENDRA - Baseline Cr appears around 1, Cr on admission 1.53 - 06/26: Cr 1.46 -> 06/27: Cr 1.43 - strict Is and Os - avoid nephrotoxic agents as able - renally dose medications DM2 - 05/18/25: Hgb A1c: 5.4 - on SSI Low Vitamin D - 05/18: 18.9, will need ergocalciferol course post OLT. Anxiety Depression - on home buspar + pristiq GERD - on PPI Morbid Obesity Anasarca - BMI 36.6; complicates all aspects of patient's care - baseline weight noted from 04/03/25 Hepatology visit is 166 lbs. Patient 213 lbs as of 06/26 - patient's body habitus is not prohibitive to transplant at this time. Edited by: Jonathan Drummond, CYDNEY, DNP at 06/27/20252055 I spent 35 minutes chart review, counseling [...] mouth 2 times a day. 120 tablet 0 busPIRone (Buspar) 7.5 MG tablet Take 1 [...] (joint pain). ergocalciferol (Vitamin D-2) 1.25 MG (95806 UT) capsule Take 1 capsule by mouth 1 time per week. Take on Wednesday FeroSul 325 (65 Fe) MG tablet Take 1 tablet by mouth daily. hydrOXYzine pamoate (Vistaril) 25 MG capsule Take 1 capsule by mouth as needed for itching. insulin aspart (NovoLOG) 100 UNIT/ML injection vial Inject under the skin 3 (three) times daily with meals per correction scale as follows: blood sugar 150- 199 use 1 unit, 200-249 use 2 units, 250-299 use 3 units, 300-349 use 4 units, 350-399 use 5 units, >399 use 6 units and call provider. Max daily dose 50 units. [Paused] insulin glargine (Lantus) 100 UNIT/ML injection vial [...] 1 tablet by mouth daily. magnesium oxide (Mag-Ox) 400 (240 Mg) MG tablet Take 1 tablet by mouth 2 times a day. 60 tablet 0 metoprolol succinate XL (Toprol-XL) 50 MG 24 hr tablet Take 1 tablet by mouth every morning. Do notcrush or chew. ondansetron (Zofran) 8 MG tablet Take 1 tablet by mouth every 8 hours as needed for nausea or vomiting. oxyCODONE (Roxicodone) 5 MG immediate release tablet Take 1.5 tablets by mouth 3 times a day. Ozempic, 1 MG/DOSE, 4 MG/3ML solution pen-injector Inject 1 mg under the skin 1 time per week. pregabalin (Lyrica) 25 MG capsule Take 1 capsule by mouth 2 times a day. promethazine (Phenergan) 25 MG tablet Take 1 tablet by mouth every 6 hours as needed for nausea or vomiting. Rimegepant Sulfate (NURTEC PO) Take 1 tablet by mouth as needed. rOPINIRole (Requip) 1 MG tablet Take 1 tablet by mouth 3 times a day. spironolactone (Aldactone) 100 MG tablet Take 1 tablet by mouth 2 times a day. valACYclovir (Valtrex) 500 MG tablet Take 1 tablet by mouth every morning. zinc sulfate (Zincate) 220 (50 Zn) MG capsule Take 1 capsule by mouth 2 times a day. 240 capsule 2 [DISCONTINUED] rifAXIMin (Xifaxan) 550 MG tablet Take 1 tablet by mouth 2 times a day. Medicaid Applicant 180 tablet 0 [DISCONTINUED] diphenhydrAMINE (Benadryl) 50 MG tablet - 50 mg PO [address] hour prior to [address] scan on 05-25-25 1 tablet 0 [DISCONTINUED] predniSONE (Deltasone) 50 MG tablet 50 mg PO, 13, 7, and [address] Scanon 05-25-25. 3 tablet 0 * Consults - Taina Rivera MD - 06/27/2025 8:48 PM ESTAssociated Order(s): Inpatient consult to Emergency General Surgery Images from the original note were not included. [facility] Department of Surgery Division of Acute Care / Emergency General Surgery History & Physical Note Reason for Consult: Colonic intramural air, stercoral colitis Requesting Service: Hospital Medicine Consult Date and Time: 06/27/2025 Inpatient consult to Emergency General Surgery Consult performed by: Taina Rivera MD Consult ordered by: Sandi Judd MD Subjective History of Present Illness: Chief Complaint: abdominal pain Avis Pemberton is a 54 y.o. female with PMHx significant for decompensated cirrhosis, CHF, HTN, type 2 DM, chronic pain, and anxiety/depression who presented to the [facility] on 06/25/2025 with hypotension and was found to have an KENDRA and concern for decompensated cirrhosis. She was initially admitted to the hospital earlier this week following an albumin infusion during which, she experienced a sensation of unease and her blood pressure, which typically runs low, was noted to be lower than usual at 80s/40s. This prompted a referral to the emergency room, where she was subsequently admitted. Patient reports that today, she began having right sided abdominal pain. She describes the pain as constant but not worsening. She denies changes in the quality or intensity of her pain after meals. She denies any history of pain like this in the past. She continues to pass flatus and reports no fever, nausea, or vomiting during this admission. She reports no bowel movements in the past two days,although she is on lactulose, which typically results in two to three bowel movements per day. She does describe one episode of nausea and vomiting on Wednesday, 06/24, prior to admission and reports she does intermittently have episodes of vomiting at home. She does report previous hospital admissions for hepatic encephalopathy. She has history of one previous paracentesis which was performed approximately two weeks ago. She also had recent hospitalization from 05/24 to 05/31 for decompensated cirrhosis. History of Present Illness Review of Systems: Relevant review of systems was obtained as able and is negative unless stated above in HPI. History Obtained From: Patient Past Medical History: Past Medical History[1] Allergies And Reactions: Allergies[2] Past Surgical History: Surgical History[3] Family Medical History: Family History[4] Reviewed and Non-contributory Social History: Alcohol: Occasional Tobacco: Quit smoking in March. Previously 1 pack every 4 days Recreational Drugs: THC use previously, none recent Social History Socioeconomic History Marital status: Spouse name: Not on file Number of children: Not on file Years of education: Not on file Highest education level: Not on file Occupational History Not on file Tobacco Use Smoking status: Former Current packs/day: 0.00 Average packs/day: 0.1 packs/day for 10.6 years (1.1 ttl pk-yrs) Types: Cigarettes Start date: 2011 Quit date: 02/2022 Years since quittin.3 Passive exposure: Past Smokeless tobacco: Never Vaping Use Vaping status: Never Used Substance and Sexual Activity Alcohol use: Not Currently Comment: not drinking since 2017 Drug use: Not Currently Types: Marijuana Comment: May 2024 last used Sexual activity: Not on file Other Topics Concern Not on file Social History Narrative Not on file Social Drivers of Health Food Insecurity: No Food Insecurity (06/26/2025) Hunger Vital Sign Worried About Running Out of Food in the Last Year: Never true Ran Out of Food in the Last Year: Never true Recent Concern: Food Insecurity - Food Insecurity Present (05/25/2025) Hunger Vital Sign Worried About Running Out of Food in the Last Year: Sometimes true Ran Out of Food in the Last Year: Sometimes true Alcohol Use: Not At Risk (07/23/2022) Received from [facility] AUDIT-C Q1: How often do you have a drink containing alcohol?: Never Q2: How many drinks containing alcohol do you have on a typical day when you are drinking?: Patientdoes not drink Q3: How often do you have six or more drinks on one occasion?: Never Housing Stability: Low Risk (06/26/2025) Housing Stability Vital Sign Unable to Pay for Housing in the Last Year: No Number of Times Moved in the Last Year: 0 Homeless in the Last Year: No Recent Concern: Housing Stability - High Risk (06/04/2025) Housing Stability Vital Sign Unable to Pay for Housing in the Last Year: Yes Number of Times Moved in the Last Year: 0 Homeless in the Last Year: No Tobacco Use: Medium Risk (06/25/2025) Patient History Smoking Tobacco Use: Former Smokeless Tobacco Use: Never Passive Exposure: Past Transportation Needs: No Transportation Needs (06/26/2025) PRAPARE - Transportation Lack of Transportation (Medical): No Lack of Transportation (Non-Medical): No Depression: Not At Risk (05/18/2025) PHQ-2 PHQ-2 Score: 0 Recent Concern: Depression - At Risk (04/03/2025) PHQ-2 PHQ-2 Score: 3 Utilities: Not At Risk (06/26/2025) [facility] Utilities Threatened with loss of utilities: No Stress: No Stress Concern Present (07/24/2022) Received from [facility] [facility] [place] [facility] - Occupational Stress Questionnaire Feeling of Stress : Not at all Intimate Partner Violence: Not At Risk (06/26/2025) Humiliation, Afraid, Rape, and Kick questionnaire Fear of Current or Ex-Partner: No Emotionally Abused: No Physically Abused: No Sexually Abused: No Physical Activity: Inactive (07/23/2022) Received from [facility] Exercise Vital Sign On average, how many days per week do you engage in moderate to strenuous exercise (like a brisk walk)?: 0 days On average, how many minutes do you engage in exercise at this level?: 0 min Social Connections: Unknown (04/19/2023) Received from [facility] Family and Community Support Help with Day-to-Day Activities: Not on file Lonely or Isolated: Not on file Financial Resource Strain: Low Risk (07/24/2022) Received from [facility] Overall Financial Resource Strain (CARDIA) Difficulty of Paying Living Expenses: Not hard at all Immunizations: Immunization History Administered Date(s) Administered Hep A / Hep B 09/13/2020 Influenza, injectable, quadrivalent, preservative free 05/21/2022, 04/08/2023 Influenza, seasonal, injectable, preservative free 06/01/2025 Moderna COVID-19 Vaccine (Line [employer]) 12+ years 12/24/2020 I have updated and confirmed the past medical, surgical, family and social history. Home Medications: Prior to Admission medications Medication Sig Start Date End Date Taking? Authorizing Provider bumetanide (Bumex) 1 MG tablet Take 2 tablets by mouth 2 times a day. 05/31/25 06/30/25 Yes Alison Burns MD busPIRone (Buspar) 7.5 MG tablet Take 1 tablet by mouth 2 times a day. 09/19/24 Yes Provider, Historical cyclobenzaprine (Flexeril) 10 MG tablet Take 1 tablet by mouth 3 times a day as needed for muscle spasms. 03/27/25 Yes Provider, Historical desvenlafaxine (Pristiq) 50 MG 24 hr tablet Take 1 tablet by mouth daily. Do not crush, chew, or split. Yes Provider, Historical diclofenac (Voltaren) 1 % topical gel Place 2 g on the skin 4 times a day as needed (joint pain). 03/24/22 Yes Provider, Historical ergocalciferol (Vitamin D-2) 1.25 MG (46737 UT) capsule Take 1 capsule by mouth 1 time per week. Take on Wednesday04/09/20 Yes Provider, Historical FeroSul 325 (65 Fe) MG tablet Take 1 tablet by mouth daily. 04/27/23 Yes Provider, Historical hydrOXYzine pamoate (Vistaril) 25 MG capsule Take 1 capsule by mouth as needed for itching. Yes Provider, Historical insulin aspart (NovoLOG) 100 UNIT/ML injection vial Inject under the skin 3 (three) times daily with meals per correction scale as follows: blood sugar 150- 199 use 1 unit, 200-249 use 2 units, 250-299 use 3 units, 300-349 use 4 units, 350-399 use 5 units, >399 use 6 units and call provider. Max daily dose 50 units. 05/31/25 Yes Alison Burns MD [Paused] insulin glargine (Lantus) 100 UNIT/ML injection vial Inject 10 Units under the skin every morning. If blood sugar is greater than 150 Wait to take this until your doctor or other care provider tells you to start again. Yes Provider, Historical Jardiance 25 MG Take 1 tablet by mouth daily. 05/13/23 Yes Provider, Historical lactulose (Chronulac) 10 GM/15ML oral solution Take 15 mL by mouth daily. 03/20/25 Yes Provider, Historical lansoprazole (Prevacid) [address] capsule Take 1 capsule by mouth daily. 08/18/22 Yes Provider, Historical lisinopril 2.5 MG tablet Take 1 tablet by mouth daily. Yes Provider, Historical magnesium oxide (Mag-Ox) 400 (240 Mg) MG tablet Take 1 tablet by mouth 2 times a day. 05/31/25 06/30/25 Yes Alison Burns MD metoprolol succinate XL (Toprol-XL) 50 MG 24 hr tablet Take 1 tablet by mouth every morning. Do notcrush or chew. Yes Provider, Historical ondansetron (Zofran) 8 MG tablet Take 1 tablet by mouth every 8 hours as needed for nausea or vomiting. Yes Provider, Historical oxyCODONE (Roxicodone) 5 MG immediate release tablet Take 1.5 tablets by mouth 3 times a day. 02/12/25 Yes Provider, Historical Ozempic, 1 MG/DOSE, 4 MG/3ML solution pen-injector Inject 1 mg under the skin 1 time per week. 09/19/24 Yes Provider, Historical pregabalin (Lyrica) 25 MG capsule Take 1 capsule by mouth 2 times a day. 02/23/25 Yes Provider, Historical promethazine (Phenergan) 25 MG tablet Take 1 tablet by mouth every 6 hours as needed for nausea or vomiting. Yes Provider, Historical Rimegepant Sulfate (NURTEC PO) Take 1 tablet by mouth as needed. Yes Provider, Historical rOPINIRole (Requip) 1 MG tablet Take 1 tablet by mouth 3 times a day. 07/20/22 Yes Provider, Historical spironolactone (Aldactone) 100 MG tablet Take 1 tablet by mouth 2 times a day. 09/08/24 Yes Provider, Historical valACYclovir (Valtrex) 500 MG tablet Take 1 tablet by mouth every morning. Yes Provider, Historical zinc sulfate (Zincate) 220 (50 Zn) MG capsule Take 1 capsule by mouth 2 times a day. 05/18/25 05/13/26 Yes Nish Hawley MD rifAXIMin (Xifaxan) 550 MG tablet Take 1 tablet by mouth 2 times a day. Medicaid Applicant 05/31/2512/16/25 Yes Alison Burns MD Melanie diphenhydrAMINE (Benadryl) 50 MG tablet - 50 mg PO 1 hour prior to the CT scan on 05-25-25 05/17/25 06/25/25 Nj Johns MD predniSONE (Deltasone) 50 MG tablet 50 mg PO, 13, 7, and [address] to [address] Scan on 05-25-25. 05/18/25 06/25/25 Kaela Khan MD Anti-Thrombotic Medications: Is this patient taking warfarin, new oral anti-coagulant, or anti-platelet medication? No If Yes, What Medication: N/A Current Hospital Medications: Current Medications[5] Objective Objective: Visit Vitals BP 121/75 (BP Location: Left arm, Patient Position: Lying) Pulse 100 Temp 37.2 ??C (99 ??F) (Oral) Ht 1.626 m (5' 4 ) Wt 94.2 kg (207 lb 10.8 oz) SpO2 93% BMI 35.65 kg/m?? @ Physical Exam: Physical Exam Vitals reviewed. Constitutional: General: She is not in acute distress. HENT: Head: Normocephalic and atraumatic. Ears: Comments: No scleral icterus Eyes: Extraocular Movements: Extraocular movements intact. Cardiovascular: Rate and Rhythm: Normal rate. Pulmonary: Effort: Pulmonary effort is normal. No respiratory distress. Abdominal: Comments: Minimal diffuse tenderness to palpation worst in the RLQ, voluntary guarding, no signs ofperitonitis Skin: General: Skin is warm and dry. Coloration: Skin is not jaundiced. Neurological: Mental Status: She is alert and oriented to person, place, and time. Psychiatric: Mood and Affect: Mood normal. Behavior: Behavior normal. Laboratory: CBC WBC 4.62 Hb 10.5 (L) Plt 51 (L) Hct 31.0 (L) ANC ?? INR 1.8 (H), PTT ??, Anti-Xa ?? MCV 104 (H) BMP Na 133 (L) Cl 96 (L) BUN 22 (H) Glu 164 (H) K 4.5 Co2 30 (H) Cr 1.43 (H) Ca 9.0 iCa ?? Mg 2.1, Phos ?? Lactate ?? LFT AST 61 (H) AlkPhos 211 (H) T Prot 5.9 (L) ALK 37 (H) Bili 2.1 (H) Alb ?? D.Bili ?? Imaging: US Abdomen Doppler Limited Result Date: 06/27/2025 Grossly patent portal vein with antegrade flow. CRITICAL RESULT: No. COMMUNICATION: Per this written report. Drafted by Iris Santana MD on 06/27/2025 5:41 PM Final report signed by Iris Santana MD on 06/27/2025 5:[address] Abdomen Pelvis wo IV Contrast Result Date: 06/27/2025 Redemonstrated cirrhotic morphology with sequela of portal hypertension including splenomegaly. Interval moderate volume ascites and significant mesenteric edema secondary to portal hypertension. Moderate pancolonic stool burden. Mild bowel wall thickening of the sigmoid colon with questionable intr amural gas concern for stercoral colitis. Small right pleural effusion. CRITICAL RESULT: No. COMMUNICATION: Per this written report. Drafted by Iris Santana MD on 06/27/2025 5:04 PM Final report signed by Iris Santana MD on 06/27/2025 5:12 PM Radiographic Interpretation: I have reviewed the imaging above and agree with the radiologist interpretation. Assessment/Plan Assessment & Plan: Avis Pemberton is a 54 y.o. female with PMHx significant for decompensated cirrhosis, CHF, HTN, type 2 DM, chronic pain, and anxiety/depression who was admitted to [facility] for KENDRA and decompensated cirrhosis who has now had 1 day of right-sided abdominal pain and CT images consistent with stercoral colitis and evidence of intramural air at the splenic flexure. During this admission patient has been afebrile and hemodynamically stable though intermittently hypotensive. Labsobtained today show no leukocytosis, elevated creatinine, and elevated BNP. On exam she does have tenderness in the right lower quadrant but there are no signs of peritonitis. Patient has not had a frankie wel movement in 2 days despite being on lactulose. Her history and exam in conjunction with CT findings are more consistent with stercoral colitis. There is no evidence of acute perforation or acute mesenteric ischemia at this time. Recommend keeping the patient nothing by mouth and aggressive bowel regimen. Bowel regimen can be done by mouth or per rectum. Would recommend initiating Zosyn. Wouldalso obtain CTA of the abdomen and pelvis if there is any clinical decompensation. No acute surgical intervention is warranted at this time but the surgical team we will continue to evaluate. PLAN: - NPO - aggressive bowel regimen - Zosyn - CTA a/p if there is any clinical decompensation Assessment & Plan KENDRA (acute kidney injury) Anxiety and depression Type 2 diabetes mellitus GERD (gastroesophageal reflux disease) Hyperlipemia Obesity Essential hypertension Iron (Fe) deficiency anemia Congestive heart failure CODE STATUS: full code This Consult, Assessment, and Plan has been discussed with Dr. Soni, Attending Physician Taina Rivera MD, PGY1 [1] Past Medical History: Diagnosis Date Anemia [...] cirrhosis of liver (CMS/HCC) Non-alcoholic cirrhosis [2] Allergies Allergen Reactions Bactrim [Sulfamethoxazole-Trimethoprim] Hives Pt reports full body hives Povidone Iodine Itching and Rash With Betadine (topical). Vortioxetine Itching and Rash Wound Dressing Adhesive Other - please document in the comment field Breaks out where skin comes in contact with adhesive. Prevents wound healing if over a wound (e.g.,incision opened up where covering incision from breast reduction surgery). [3] Past Surgical History: Procedure Laterality Date APPENDECTOMY BACK SURGERY N/A 1994 BACK SURGERY 2009 BREAST SURGERY N/A Breast Surgery Reduction Procedure Bilateral from [facility] EXPLORATORY LAPAROTOMY GALLBLADDER SURGERY 2018 GANGLION CYST EXCISION, WRIST Left INCISION AND DRAINAGE, ABCESS 2009 from back LIVER BIOPSY OTHER SURGICAL HISTORY N/A Exploratory Laparotomy from [facility] OVARIAN CYST DRAINAGE N/A Aspiration Of Ovarian Cyst from [facility] TOTAL ABDOMINAL HYSTERECTOMY N/A 2011 Hysterectomy from [facility] [4] Family History Problem Relation Name Age of [...] Heart attack Paternal Grandmother Hypertension Paternal Grandfather Breast cancer Mother's Sister [5] Current Facility-Administered Medications Medication Dose Route Frequency Provider Last Rate Last Admin acetaminophen (Tylenol) tablet 500 mg 500 mg Oral q8h PRN Grady Briones APRN, DNP 500 mg at 06/27/25 1142 busPIRone (Buspar) tablet 7.5 mg 7.5 mg Oral BID Grady Briones APRN, DNP 7.5 mg at 06/27/25 2019 cyclobenzaprine (Flexeril) tablet 10 mg 10 mg Oral TID PRN Grady Briones APRN, DNP 10 mg at 06/26/25 1647 desvenlafaxine (Pristiq) 24 hr tablet 50 mg 50 mg Oral Daily Grady Briones APRN, DNP 50 mg at 06/26/25 0900 glucose (Glutose) 40 % oral gel 15-30 grams of glucose 15-30 grams of glucose Sublingual q15 min PRN Grady Briones APRN, DNP Or dextrose 10 % (D10W) bolus 125 mL 125 mL Intravenous q15 min PRN Grady Briones APRN, DNP Or dextrose 10 % (D10W) bolus 250 mL 250 mL Intravenous q15 min PRN Grady Briones APRN, DNP Or glucagon (human recombinant) injection 1 mg 1 mg Intramuscular q15 min PRN Grady Briones APRN, DNP diclofenac (Voltaren) 1 % topical gel 2 g 2 g Topical 4x daily PRN Grady Brinoes APRN, DNP ferrous sulfate EC tablet 324 mg 324 mg Oral Daily with breakfast Grady Briones APRN, DNP 324 mg at 06/27/25 2019 hydrOXYzine pamoate (Vistaril) capsule 25 mg 25 mg Oral BID PRN Alison Burns MD insulin lispro (Admelog) 100 units/mL injection - Correction - Standard Dose 0-5 Units SubcutaneousTID with meals Grady Briones APRN, DNP 1 Units at 06/27/25 1136 insulin lispro (Admelog) injection - Correction - Nighttime Dose 0-3 Units Subcutaneous Twice at night Grady Briones APRN, DNP lactulose (Chronulac) 10 GM/15ML solution 30 g 30 g Oral TID Alison Burns MD 30 g at 06/27/25 1859 magnesium oxide (Mag-Ox) tablet 400 mg 400 mg Oral BID Grady Briones APRN, DNP 400 mg at 019 oxyCODONE (Roxicodone) immediate release tablet 5 mg 5 mg Oral q6h PRN Grady Briones APRN, DNP 5 mg at 06/27/25 1142 pantoprazole (Protonix) EC tablet 40 mg 40 mg Oral Daily Grady Briones APRN, DNP 40 mg at 06/27/25 0955 prochlorperazine (Compazine) tablet 5 mg 5 mg Oral q6h PRN Grady Briones APRN, DNP Or prochlorperazine (Compazine) injection 2.5 mg 2.5 mg Intravenous q6h PRN Grady Briones APRN, DNP rifAXIMin (Xifaxan) tablet 550 mg 550 mg Oral BID Grady Briones APRN, DNP 550 mg at 06/27/252018 rOPINIRole (Requip) tablet 1 mg 1 mg Oral 4x daily PRN Grady Briones APRN, DNP 1 mg at 06/27/251006 sodium chloride 0.9 % flush 10 mL 10 mL Intravenous q12h Grady Briones APRN, DNP 10 mL at 06/27/25 1136 And sodium chloride 0.9 % flush 10 mL 10 mL Intravenous PRN Grady Briones APRN, DNP valACYclovir (Valtrex) tablet 500 mg 500 mg Oral q AM Grady Briones APRN, DNP 500 mg at 06/27/25 0540 zinc sulfate (Zincate) capsule 220 mg 220 mg Oral BID Grady Briones APRN, DNP 220 mg at 06/27/252018 Cosigned by Juana Soni MD at 07/02/2025 4:10 PM EST Associated attestation - Juana Soni MD - 07/02/2025 4:10 PM EST I discussed the case with the resident/fellow and agree with the findings and plan as documented. 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 Ascites: Present. On Aldactone 200 mg and Bumex 1 mg BID Hepatic encephalopathy: Prior history. 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 SBP: No history HCC: no masses on recent CT. AFP normal. Plan: Ascites/ KENDRA Sodium restriction <2g/day Received diuresis as Bumex 6 mg on 06/26 and 4 mg on 06/27, off aldactone' Repeat Creatinine while being on diuretics, if it improves further, would treat as possible cardio-renal. Add NT-Pro BNP Infectious workup including blood Cx, CXR, UA negative Get a paracentesis to rule out SBP On CT patient likely has stercoral colitis, but intramural bowel gas is mentioned w/o portal gas. Less likely to be mesenteric ischemia but will consult surgery to evaluate. CTA per primary discretion. Monitor for electrolyte disturbances, renal function Hepatic Encephalopathy Lactulose 10-20g TID PRN for 3-4 BM Continue rifaximin Nutritional support: 1.25 g/kg protein/day, nighttime snack Varices/Variceal Bleeding No prior hx of variceal bleeding. Will continue to monitor Hgb trend, if significantly down-ternding, will plan for inpatient EGD. Spontaneous Bacterial Peritonitis No prior hx of SBP. Diagnostic paracentesis if pocket is identifiable Transplant Evaluation Undergoing liver transplant evaluation History Of Present Illness Avis Pemberton is a 54 y.o. female with a PMHx of decompensated cirrhosis, CHF, HTN, type 2 DM, chronic pain, and anxiety/depression who presented to the emergency department on 06/25 for evaluation of hypotension. Patient was at an infusion clinic receiving albumin, when she became hypotensive, lightheaded. Albumin was stopped and she presented to the emergency department where she was found to be anemic, thrombocytopenic, hyperglycemic, KENDRA, and elevated liver enzymes. Since admission patient has received Bumex 4 mg oral and 2 mg IV on 06/26 and 2 mg IV on 06/27 and Creatinine has improved from 1.53 to 1.43. Medical/Surgical/Social/Family History I have reviewed and updated the patient history. Allergies Bactrim [sulfamethoxazole-trimethoprim], Povidone iodine, Vortioxetine, and Wound dressing adhesive Medications Current Medications[1] Review of Systems Review of Systems Vitals Temp: [36.6 ??C (97.9 ??F)-37 ??C (98.6 ??F)] 36.8 ??C (98.2 ??F) Heart Rate: [92-101] 101 Resp: [14-16] 15 BP: (95-101)/(52-65) 99/62 Physical Exam Eyes: General: No scleral icterus. Cardiovascular: Pulses: Normal pulses. Pulmonary: Effort: Pulmonary effort is normal. Abdominal: General: There is distension. Palpations: There is no mass. Tenderness: There is abdominal tenderness. There is no rebound. Hernia: No hernia is present. Musculoskeletal: Right lower leg: Edema present. Left lower leg: Edema present. Neurological: Mental Status: She is oriented to person, place, and time. Psychiatric: Mood and Affect: Mood normal. Results Review Lab Results Component Value Date WBC 4.62 06/27/2025 HGB 10.5 (L) 06/27/2025 HCT 31.0 (L) 06/27/2025 MCV 104 (H) 06/27/2025 PLT 51 (L) 06/27/2025 Lab Results Component Value Date GLUCOSE 164 (H) 06/27/2025 CALCIUM 9.0 06/27/2025 NA 133 (L) 06/27/2025 K 4.5 06/27/2025 CO2 30 (H) 06/27/2025 CL 96 (L) 06/27/2025 BUN 22 (H) 06/27/2025 CREATININE 1.43 (H) 06/27/2025 Lab Results Component Value Date ALT 37 (H) 06/27/2025 AST 61 (H) 06/27/2025 GGT 52 (H) 05/18/2025 ALKPHOS 211 (H) 06/27/2025 BILITOT 2.1 (H) 06/27/2025 Lab Results Component Value Date INR 1.8 (H) 06/27/2025 INR 1.7 (H) 06/26/2025 INR 1.7 (H) 06/25/2025 PROTIME 14.8 06/21/2025 PROTIME 13.1 04/11/2025 PROTIME 14.4 02/27/2025 Lab Results Component Value Date AFP 5.9 05/18/2025 === 06/25/25 === US ABDOMEN DOPPLER LIMITED - Narrative - CLINICAL INDICATION: PVT rule out TECHNIQUE: Grayscale and Doppler images of the portal vein. COMPARISON: Same day CT, May 25, 2025 FINDINGS: Liver: Cirrhotic morphology. Perihepatic ascites. Main portal vein: Portal vein measures 1 cm in diameter with antegrade flow. Flow velocities measure up to 28.5 cm/s. Possible artifacts seen in image 5 and 18. - Impression - Grossly patent portal vein with antegrade flow. === 06/25/25 === CT ABDOMEN PELVIS WO IV CONTRAST - Narrative - CLINICAL INDICATION: LUQ and epigastric abdominal pain, hx of cirrhosis and decompensation TECHNIQUE: Imaging of the abdomen and pelvis was performed from lung bases through pubic symphysis, using spiral technique, without administration of IV contrast. Reformatted images in the coronal and sagittal planes were generated from the axial data set to facilitate diagnostic accuracy. Total DLP (Dose-Length Product): 700.02 mGy.cm. Please note: The reported value represents the total of one or more individual components during the CT acquisition on this date and at this time, and as such, the same value may appear in more than one CT report depending on the interpreting/reporting physicians. COMPARISON: October 24, 2023 FINDINGS: Lack of IV contrast limits evaluation of abdominal and pelvic organs. Lung Bases: Small right pleural effusion. Liver/Gallbladder/Biliary System: Cirrhotic morphology of liver. Gallbladder surgically absent. No intra or extrahepatic ductal dilatation. Spleen: Borderline splenomegaly. Pancreas: The pancreas is normal. Adrenals: The adrenals are morphologically unremarkable. Kidneys: The kidneys are normal. Punctate stone in the left lower pole. No hydronephrosis. Bowel/Mesentery: Intraluminal contrast within the stomach. The small bowel loops are not dilated. Moderate pancolonic stool burden. Mild thickening of the splenic flexure with focal intramural gas concern for sacral colitis (series 3 image 99). The appendix is not visualized. No pneumoperitoneum. Lary congested mesentery. No intra-abdominal fluid collections. Vessels/Lymph Nodes: Atherosclerosis without aneurysm. No lymphadenopathy within the abdomen or pelvis. Fluid Survey: Moderate volume ascites. Pelvis: Unremarkable urinary bladder. No pelvic mass. Body Wall: Anasarca. Bones: No acute fracture. - Impression - Redemonstrated cirrhotic morphology with sequela of portal hypertension including splenomegaly. Interval moderate volume ascites and significant mesenteric edema secondary to portal hypertension. Moderate pancolonic stool burden. Mild bowel wall thickening of the sigmoid colon with questionableintramural gas concern for stercoral colitis. Small right pleural effusion. CHAN Yusuf [1] Current Facility-Administered Medications Medication Dose Route Frequency Provider Last Rate Last Admin acetaminophen (Tylenol) tablet 500 mg 500 mg Oral q8h PRN Grady Briones APRN, DNP 500 mg at 06/27/25 1142 busPIRone (Buspar) tablet 7.5 mg 7.5 mg Oral BID Grady Briones APRN, DNP 7.5 mg at 06/27/25 0955 cyclobenzaprine (Flexeril) tablet 10 mg 10 mg Oral TID PRN Grady Briones APRN, DNP 10 mg at 06/26/25 1647 desvenlafaxine (Pristiq) 24 hr tablet 50 mg 50 mg Oral Daily Grady Briones APRN, DNP 50 mg at 06/26/25 0900 glucose (Glutose) 40 % oral gel 15-30 grams of glucose 15-30 grams of glucose Sublingual q15 min PRN Grady Briones APRN, DNP Or dextrose 10 % (D10W) bolus 125 mL 125 mL Intravenous q15 min PRN Grady Briones APRN, DNP Or dextrose 10 % (D10W) bolus 250 mL 250 mL Intravenous q15 min PRN Grady Briones APRN, DNP Or glucagon (human recombinant) injection 1 mg 1 mg Intramuscular q15 min PRN Grady Briones APRN, DNP diclofenac (Voltaren) 1 % topical gel 2 g 2 g Topical 4x daily PRN Grady Briones APRN, DNP ferrous sulfate EC tablet 324 mg 324 mg Oral Daily with breakfast Grady Briones APRN, DNP 324 mg at 06/26/25 0900 insulin lispro (Admelog) 100 units/mL injection - Correction - Standard Dose 0-5 Units SubcutaneousTID with meals Grady Briones APRN, DNP 1 Units at 06/27/25 1136 insulin lispro (Admelog) injection - Correction - Nighttime Dose 0-3 Units Subcutaneous Twice at night Grady Briones APRN, DNP lactulose (Chronulac) 10 GM/15ML solution 30 g 30 g Oral TID Alison Burns MD magnesium oxide (Mag-Ox) tablet 400 mg 400 mg Oral BID Grady Briones APRN, DNP 400 mg at 955 oxyCODONE (Roxicodone) immediate release tablet 5 mg 5 mg Oral q6h PRN Grady Briones APRN, DNP 5 mg at 06/27/25 1142 pantoprazole (Protonix) EC tablet 40 mg 40 mg Oral Daily Grady Briones APRN, DNP 40 mg at 06/27/25 0955 prochlorperazine (Compazine) tablet 5 mg 5 mg Oral q6h PRN Grady Briones APRN, DNP Or prochlorperazine (Compazine) injection 2.5 mg 2.5 mg Intravenous q6h PRN Grady Briones APRN, DNP rifAXIMin (Xifaxan) tablet 550 mg 550 mg Oral BID Grady Briones APRN, DNP 550 mg at 06/27/25 0956 rOPINIRole (Requip) tablet 1 mg 1 mg Oral 4x daily PRN Grady Briones APRN, DNP 1 mg at 06/27/25 1007 sodium chloride 0.9 % flush 10 mL 10 mL Intravenous q12h AnaliGrady APRN, DNP 10 mL at 06/27/25 1136 And sodium chloride 0.9 % flush 10 mL 10 mL Intravenous PRN Grady Briones APRN, DNP valACYclovir (Valtrex) tablet 500 mg 500 mg Oral q AM Anali wilbur Wilosn APRN, DNP 500 mg at 06/27/25 0540 zinc sulfate (Zincate) capsule 220 mg 220 mg Oral BID AnaliGrady APRN, DNP 220 mg at 06/27/25 0955 Cosigned by Nj Johns MD at 06/28/2025 11:13 PM EST Associated attestation - Nj Johns MD - 06/28/2025 11:13 PM EST I saw and evaluated the patient with the resident/fellow. I discussed the case with the resident/fellow and agree with the findings and plan as documented. Nj Johns MD * Progress Notes - Alison Burns MD - 06/27/2025 5:14 PM EST Subjective Pt urinated about 2.3 L yesterday after iv bumex. Wt down to 213. Will give another iv bumex today and monitor. Discussed transplant eval update per note. She is not socially cleared. She was emotional and discouraged. Said she will do anything. Not feeling well and having lower quadrant abdominal pain with tenderness in epigastric and bilateral Uqs regions. Review of Systems Complete review of system is negative except mentioned in subjective finding. '' Objective Vitals Temp: [36.6 ??C (97.9 ??F)-37 ??C (98.6 ??F)] 36.8 ??C (98.2 ??F) Heart Rate: [92-101] 101 Resp: [14-16] 15 BP: (95-101)/(52-65) 99/62 Physical Exam GENERAL:Alert and orientated, cooperative, in no acute distress. HEENT:Normal conjunctiva, no scleral icterus, mucous membranes- moist, no oral thrush, no sinus tenderness. CVS:Regular rhythm, normal rate, normal S1/S2, no murmur. RESPIRATORY: Normal breath sounds,clear on auscultation, no wheezing or rales. GASTROINTESTINAL:Normal BS. Abdomen-soft, distended. Noted tenderness in RUQ, LUQ, epigastric and lower quadrant regions. MUSCULOSKELETAL:Extremities symmetric without pedal edema. INTEGUMENTARY:Warm, no rashes or cyanosis. NEUROLOGIC:Non-focal. Cranial nerves II-XII grossly intact. PSYCHIATRIC: Appropriate affect Assessment & Plan KENDRA (acute kidney injury) Anxiety and depression Type 2 diabetes mellitus GERD (gastroesophageal reflux disease) Hyperlipemia Obesity Essential hypertension Iron (Fe) deficiency anemia Congestive heart failure #Acute Kidney Injury c/b decompensated cirrhosis Generalized Anasarca - Baseline creatinine 0.90-1.0; 1.54 on admission -Urine studies showed intrinsic renal disease. -pt has been gaining wt since last month . Baseline wt around 205. Increased leg swelling . -received albumin 5.5 bags at the infusion clinic but no improvement in renal function. -clinically hypervolemic. Gave Bumex 4 mg PO given but had only 300 ml urine output. Gave IV bumex and had significant urine output . -sCr stable at 1.4. clinically , still hypervolemic. Will continue diuresis. Plan: -will give iv Bumex 2 mg x 1 again -fluid restriction 1800 ml/day - Renally dose medications; avoid nephrotoxins - Strict I&O -continue to hold spironolactone - Renal function panel daily Diffuse generalized abdominal pain with tenderness -will get CT abdomen #Hypotension - Asymptomatic. Has soft BP at baseline. No s/s of sepsis or infection. #Decompensated cirrhosis - follows with [facility] - MELD 23 ( 08/26/24) - Ascites:Paracentesis Hx - 06/15, drained 3L . Home bumex 2 mg BID , spironolactone 100 mg BID. - HE: HE not present on admission. Lactulose & Rifaximin (insurance did not cover) , Zinc - EV: EGD, : non-obstructing schatzki ring, 2 cm hiatal hernia, non bleeding GAVE s/p APC; metoprolol . Hold metoprolol in the setting of KENDRA. - HCC: q.6 months, AFP: 5.9 on 05/28; US liver 04/2024: without focal lesion -Transplant candidacy : not socially cleared yet. Need repeat ABG and CT abdomen liver protocol. Plan -consult GI and liver transplant. - 2g Na+ 2CC diet - No NSAIDs - hold home diuretics & Lactulose 2/2 KENDRA - continue remaining home meds #Type 2 DM - A1C:5.4 - Home regimen: Ozempic 1 mg weekly Jardiance 25 mg dialy Lanuts 10 units daily when FSBS > 150 Aspart sliding scale Plan - hold ozempic & Jardiance - hospital regimen: ISS pre protocol #Anemia - Hgb 10.4, Baseline 10; Iron Supplement, transfuse for Hgb < 7 #Thrombocytopenia - sec to cirrhosis. Transfuse for plt < 10 or <50 with active signs of bleeding #CHF - TTE, 05/28: EF 60% LA dilated; Stress Test, 05/28: no significant changes; Bumex, Spirolactone, Jardiance, all on hold #HTN - metoprolol 12.5 mg BID, lisinopril 2.5 mg daily, spironolactone #RLS - ropinirole 1 mg daily #HLD - simvastatin? #Anxiety/Depression - Buspar 7.5 mg BID, Pristiq 50 mg Daily #Neuropathy/Chronic pain - pregabalin 25 mg BID, Cyclobenzaprine 10 mg TID PRN, Oxycodone 5 mg q.6 hrs PRN #GERD - lansoprazole 30 mg daily #Migraines - Nurtec #Herpes - Valacyclovir 500 mg daily #Obesity - BMI 36.48, complicates all aspects of care Hyponatremia -sec to cirrhosis of liver -stable at baseline 133. Diet:regular, HPHC, < 2 gm Na < 2 L DVT prophylaxis: AC contraindicated in the setting of thrombocytopenia Code status:full code Disposition: Follow up: Medically Ready for Discharge:Anticipated in 2-4 Days Alison Burns MD [facility]. Prefer secure chat/ [phone] * Care Plan - Tracy Quigley RN - 06/27/2025 4:39 PM EST Problem: Adult Inpatient Plan of Care Goal: Plan of Care Review Outcome: Ongoing, Progressing Flowsheets (Taken 06/27/2025 1634) Progress: improving Plan of Care Reviewed With: patient Goal: Patient-Specific Goal (Individualized) Outcome: Ongoing, Progressing Flowsheets (Taken 06/27/2025 0800) Patient/Family-Specific Goals (Include Timeframe): pt will remain free from injury this shift Individualized Care Needs: safety Anxieties, Fears or Concerns: none verbalized Goal: Absence of Hospital-Acquired Illness or Injury Outcome: Ongoing, Progressing Intervention: Identify and Manage Fall Risk Flowsheets (Taken 06/27/2025 1634) Safety Promotion/Fall Prevention: assistive device/personal items within reach lighting adjusted nonskid shoes/slippers when out of bed room organization consistent clutter-free environment maintained Goal: Optimal Comfort and Wellbeing Outcome: Ongoing, Progressing Intervention: Provide Person-Centered Care Flowsheets (Taken 06/27/2025 1634) Trust Relationship/Rapport: care explained reassurance provided choices provided thoughts/feelings acknowledged emotional support provided empathic listening provided questions answered questions encouraged Problem: Fall Injury Risk Goal: Absence of Fall and Fall-Related Injury Outcome: Ongoing, Progressing Intervention: Promote Injury-Free Environment Flowsheets (Taken 06/27/2025 1634) Safety Promotion/Fall Prevention: assistive device/personal items within reach lighting adjusted nonskid shoes/slippers when out of bed room organization consistent clutter-free environment maintained Problem: Acute Kidney Injury/Impairment Goal: Fluid and Electrolyte Balance Outcome: Ongoing, Progressing Intervention: Monitor and Manage Fluid and Electrolyte Balance Flowsheets (Taken 06/27/2025 1634) Fluid/Electrolyte Management: fluids restricted fluids provided Note: Pt is on a 1800 ml fluid restriction Goal: Improved Oral Intake Outcome: Ongoing, Progressing Goal: Effective Renal Function Outcome: Ongoing, Progressing Problem: Pain Acute Goal: Optimal Pain Control and Function Outcome: Ongoing, Progressing Intervention: Optimize Psychosocial Wellbeing Flowsheets (Taken 06/27/2025 1634) Supportive Measures: positive reinforcement provided self-reflection promoted verbalization of feelings encouraged self-care encouraged active listening utilized Diversional Activities: television smartphone Problem: Anemia Goal: Anemia Symptom Improvement Outcome: Ongoing, Progressing Intervention: Monitor and Manage Anemia Flowsheets (Taken 06/27/2025 1634) Safety Promotion/Fall Prevention: assistive device/personal items within reach lighting adjusted nonskid shoes/slippers when out of bed room organization consistent clutter-free environment maintained Problem: Fluid Volume Deficit Goal: Fluid Balance Outcome: Ongoing, Progressing Intervention: Monitor and Manage Hypovolemia Flowsheets (Taken 06/27/2025 1634) Fluid/Electrolyte Management: fluids restricted fluids provided * Care Plan - Mariluz Dawson - 06/26/2025 9:55 PM EST Problem: Adult Inpatient Plan of Care Goal: Plan of Care Review Outcome: Ongoing, Progressing Flowsheets Taken 06/26/20252152 Progress: no change Taken 06/26/2025320 Plan of Care Reviewed With: patient Goal: Patient-Specific Goal (Individualized) Outcome: Ongoing, Progressing Flowsheets (Taken 06/26/2025 2100) Patient/Family-Specific Goals (Include Timeframe): pt will remain free from falls during this shift Individualized Care Needs: safety Anxieties, Fears or Concerns: none stated Goal: Absence of Hospital-Acquired Illness or Injury Outcome: Ongoing, Progressing Intervention: Identify and Manage Fall Risk Flowsheets (Taken 06/26/20252152) Safety Promotion/Fall Prevention: activity supervised safety round/check completed lighting adjusted assistive device/personal items within reach mobility aid in reach nonskid shoes/slippers when out of bed fall prevention program maintained clutter-free environment maintained Intervention: Prevent Skin Injury Flowsheets (Taken 06/26/2025 0321) Body Position: weight shifting Intervention: Prevent and Manage VTE (Venous Thromboembolism) Risk Flowsheets (Taken 06/26/20252152) VTE Prevention/Management: bilateral SCDs (sequential compression devices) on Intervention: Prevent Infection Flowsheets (Taken 06/26/20252152) Infection Prevention: cohorting utilized personal protective equipment utilized hand hygiene promoted Goal: Optimal Comfort and Wellbeing Outcome: Ongoing, Progressing Intervention: Monitor Pain and Promote Comfort Flowsheets (Taken 06/26/20252052) Pain Management Interventions: medication (see MAR) Intervention: Provide Person-Centered Care Flowsheets (Taken 06/26/20252152) Trust Relationship/Rapport: care explained questions encouraged choices provided reassurance provided emotional support provided thoughts/feelings acknowledged empathic listening provided questions answered Problem: Fall Injury Risk Goal: Absence of Fall and Fall-Related Injury Outcome: Ongoing, Progressing Problem: Pain Acute Goal: Optimal Pain Control and Function Outcome: Ongoing, Progressing Intervention: Optimize Psychosocial Wellbeing Flowsheets Taken 06/26/2025 08 by Edna Rebolledo RN Supportive Measures: active listening utilized Diversional Activities: television Taken 06/26/2025 0321 by Mariluz Dawson Spiritual Activities Assistance: affirmation provided Intervention: Develop Pain Management Plan Flowsheets (Taken 06/26/20252052) Pain Management Interventions: medication (see MAR) Intervention: Prevent or Manage Pain Flowsheets (Taken 06/26/2025799 by Edna Rebolledo, CORWIN) Sensory Stimulation Regulation: care clustered Bowel Elimination Promotion: adequate fluid intake promoted Sleep/Rest Enhancement: awakenings minimized consistent schedule promoted Medication Review/Management: medications reviewed Problem: Anemia Goal: Anemia Symptom Improvement Outcome: Ongoing, Progressing Intervention: Monitor and Manage Anemia Flowsheets Taken 06/26/20252152 by Mariluz Dawson Oral Nutrition Promotion: rest periods promoted Safety Promotion/Fall Prevention: activity supervised safety round/check completed lighting adjusted assistive device/personal items within reach mobility aid in reach nonskid shoes/slippers when out of bed fall prevention program maintained clutter-free environment maintained Taken 06/26/2025799 by Edna Rebolledo, CORWIN Fatigue Management: frequent rest breaks encouraged Problem: Fluid Volume Deficit Goal: Fluid Balance Outcome: Ongoing, Progressing Intervention: Monitor and Manage Hypovolemia Flowsheets (Taken 06/26/20252152) Fluid/Electrolyte Management: fluids provided * Consults - Joe Garcia APRN - 06/26/2025 9:15 PM ESTAssociated Order(s): Inpatient consult to Transplant Surgery(Renal,Liver) Inpatient consult to Transplant Surgery(Renal,Liver) Consult performed by: Joe Garcia APRN Consult ordered by: Alison Burns MD Abdominal Transplant Surgery Consult Note Consulting Provider: Alison Burns MD Reason for Consult: decompensated cirrhosis of liver CHIEF COMPLAINT: hypotension & lightheadedness HISTORY OF PRESENT ILLNESS: Avis Pemberton is a 54 y.o. female with a PMHx of decompensated cirrhosis, CHF, HTN, type 2 DM, chronic pain, and anxiety/depression who presented to the emergency department on 06/25 for evaluation of hypotension. Per chart review patient was at an infusion clinic receiving albumin, when she became hypotensive, lightheaded, and had a feeling of euphoria. Albumin was stopped and she presented to the emergency department where she was found to be anemic, thrombocytopenic, hyperglycemic, KENDRA, and elevated liver enzymes. She was admitted to hospital medicine for further workup and management. Transplant surgery was consulted as patient is undergoing evaluation for liver transplant. On assessment, patient is alert and oriented with complaints of abdominal pain. Reports feeling bad and cannot describe how she feels. Denies fever, chills, nausea, vomiting, diarrhea, shortness ofair, chest pain, or recent sick contacts. Has no questions for transplant surgery at this time. Edited by: Joe Garcia APRN at 06/26/20252111 MELD 3.0: 22 at 06/26/2025 2:25 AM MELD-Na: 21 at 06/26/2025 2:25 AM Calculated from: Serum Creatinine: 1.46 mg/dL at 06/26/2025 2:25 AM Serum Sodium: 136 mmol/L at 06/26/2025 2:25 AM Total Bilirubin: 2.8 mg/dL at 06/26/2025 2:25 AM Serum Albumin: 3.7 g/dL (Using max of 3.5 g/dL) at 06/26/2025 2:25 AM INR(ratio): 1.7 at 06/26/2025 2:25 AM Age at listing (hypothetical): 54 years Sex: Female at 06/26/2025 2:25 AM PAST MEDICAL HISTORY Past Medical History[1] PAST [...] date: 2011 Quit date: 02/2022 Years since quittin.3 Passive exposure: Past Smokeless tobacco: Never Vaping Use Vaping status: Never Used Substance and Sexual Activity Alcohol use: Not Currently Comment: not drinking since 2017 Drug use: Not Currently Types: Marijuana Comment: May 2024 last used Sexual activity: Not on file Other Topics Concern Not on file Social History Narrative Not on file Social Drivers of Health Food Insecurity: No Food Insecurity (06/26/2025) Hunger Vital Sign Worried About Running Out of Food in the Last Year: Never true Ran Out of Food in the Last Year: Never true Recent Concern: Food Insecurity - Food Insecurity Present (05/25/2025) Hunger Vital Sign Worried About Running Out of Food in the Last Year: Sometimes true Ran Out of Food in the Last Year: Sometimes true Alcohol Use: Not At Risk (07/23/2022) Received from [facility] AUDIT-C Q1: How often do you have a drink containing alcohol?: Never Q2: How many drinks containing alcohol do you have on a typical day when you are drinking?: Patientdoes not drink Q3: How often do you have six or more drinks on one occasion?: Never Housing Stability: Low Risk (06/26/2025) Housing Stability Vital Sign Unable to Pay for Housing in the Last Year: No Number of Times Moved in the Last Year: 0 Homeless in the Last Year: No Recent Concern: Housing Stability - High Risk (06/04/2025) Housing Stability Vital Sign Unable to Pay for Housing in the Last Year: Yes Number of Times Moved in the Last Year: 0 Homeless in the Last Year: No Tobacco Use: Medium Risk (06/25/2025) Patient History Smoking Tobacco Use: Former Smokeless Tobacco Use: Never Passive Exposure: Past Transportation Needs: No Transportation Needs (06/26/2025) PRAPARE - Transportation Lack of Transportation (Medical): No Lack of Transportation (Non-Medical): No Depression: Not At Risk (05/18/2025) PHQ-2 PHQ-2 Score: 0 Recent Concern: Depression - At Risk (04/03/2025) PHQ-2 PHQ-2 Score: 3 Utilities: Not At Risk (06/26/2025) [facility] Utilities Threatened with loss of utilities: No Stress: No Stress Concern Present (07/24/2022) Received from [facility] [place] [facility] [employer] [facility] - Occupational Stress Questionnaire Feeling of Stress : Not at all Intimate Partner Violence: Not At Risk (06/26/2025) Humiliation, Afraid, Rape, and Kick questionnaire Fear of Current or Ex-Partner: No Emotionally Abused: No Physically Abused: No Sexually Abused: No Physical Activity: Inactive (07/23/2022) Received from [facility] Exercise Vital Sign On average, how many days per week do you engage in moderate to strenuous exercise (like a brisk walk)?: 0 days On average, how many minutes do you engage in exercise at this level?: 0 min Social Connections: Unknown (04/19/2023) Received from [facility] Family and Community Support Help with Day-to-Day Activities: Not on file Lonely or Isolated: Not on file Financial Resource Strain: Low Risk (07/24/2022) Received from [facility] Overall Financial Resource Strain (CARDIA) Difficulty of Paying Living Expenses: Not hard at all MEDICATIONS Medications Ordered Prior to Encounter[4] ALLERGIES Allergies[5] REVIEW OF SYSTEMS 14-point ROS negative except as above in HPI. PHYSICAL EXAM GENERAL: adult female, NAD EYES: PERRL + scleral icterus HENT: No [...] Results from last 7 days Lab Units 06/26/25 0225 06/25/25 1657 06/21/25 0000 SODIUM mmol/L 136 < > -- SODIUM (NA) EXTERNAL mEq/L -- -- 134 POTASSIUM mmol/L 3.9 < > -- POTASSIUM (K) EXTERNAL -- -- 4.3 CHLORIDE mmol/L 98 < > -- CHLORIDE (CL) EXTERNAL -- -- 98 CO2 mmol/L 29 < > -- CARBON DIOXIDE (CO2) EXTERNAL -- -- 26 BUN mg/dL 21 < > -- BLOOD UREA NITROGEN (BUN) EXTERNAL -- -- 21 CREATININE mg/dL 1.46* < > -- CREATININE BLOOD EXTERNAL mg/dL -- -- 1.3 CALCIUM mg/dL 9.8 < > -- CALCIUM (CA) EXTERNAL -- -- 8.8 TOTAL PROTEIN EXTERNAL -- -- 7.3 BILIRUBIN TOTAL mg/dL 2.8* < > -- BILIRUBIN TOTAL EXTERNAL mg/dL -- -- 4.8 ALKALINE PHOSPHATASE U/L 181* < > -- ALKALINE PHOSPHATASE EXTERNAL -- -- 190 ALT U/L 45* < > -- ALT-ALANINE AMINOTRANSFERASE (SGPT) EXTERNAL -- -- 59 AST U/L 72* < > -- AST-ASPARTATE AMINOTRANSFERASE (SGOT) EXTERNAL -- -- 92 GLUCOSE mg/dL 130* < > -- GLUCOSE EXTERNAL -- -- 135 < > = values in this interval not displayed. Results from last 7 days Lab Units 06/26/25224 WBC 10*3/uL 3.88 HEMOGLOBIN g/dL 10.5* HEMATOCRIT % 30.6* PLATELETS 10*3/uL 41* Results from last 7 days Lab Units 06/26/25224 MAGNESIUM mg/dL 2.2 Lab Results Component Value Date CALCIUM 9.8 06/26/2025 PHOS 3.0 06/26/2025 MELD 3.0: 22 at 06/26/2025 2:25 AM MELD-Na: 21 at 06/26/2025 2:25 AM Calculated from: Serum Creatinine: 1.46 mg/dL at 06/26/2025 2:25 AM Serum Sodium: 136 mmol/L at 06/26/2025 2:25 AM Total Bilirubin: 2.8 mg/dL at 06/26/2025 2:25 AM Serum Albumin: 3.7 g/dL (Using max of 3.5 g/dL) at 06/26/2025 2:25 AM INR(ratio): 1.7 at 06/26/2025 2:25 AM Age at listing (hypothetical): 54 years Sex: Female at 06/26/2025 2:25 AM ASSESSMENT Avis Pemberton is a 54 y.o. female with a PMHx of decompensated cirrhosis, CHF, HTN, type 2 DM, chronic pain, and anxiety/depression who presented to the emergency department on 06/25 for evaluation of hypotension. Per chart review patient was at an infusion clinic receiving albumin, when she became hypotensive, lightheaded, and had a feeling of euphoria. Albumin was stopped and she presented to the emergency department where she was found to be anemic, thrombocytopenic, hyperglycemic, KENDRA, and elevated liver enzymes. She was admitted to hospital medicine for further workup and management.Transplant surgery was consulted as patient is undergoing evaluation for liver transplant. [facility] HE - MELD 3.0: 22 per labs 06/26/25, ABO A+ - Please consult GAS/Liver as they follow her in [facility] for cirrhosis management. - on lactulose & rifaximin - The patient has started transplant evaluation testing; will obtain ABG & CT Liver protocol tofinish medical portion of evaluation as patient condition allows - Pt remains not socially cleared pending f/up with Dr. Cervantes outpatient - Transplant surgery will continue to follow - rest of care per primary team KENRDA - Baseline Cr appears around 1, Cr on admission 1.53 - 06/26: Cr 1.46 - strict Is and Os - avoid nephrotoxic agents as able - renally dose medications DM2 - 05/18/25: Hgb A1c: 5.4 - on SSI Low Vitamin D - 05/18: 18.9, will need ergocalciferol course post OLT. Anxiety Depression - on home buspar + pristiq GERD - on PPI Morbid Obesity Anasarca - BMI 36.6; complicates all aspects of patient's care - baseline weight noted from 04/03/25 Hepatology visit is 166 lbs. Patient 213 lbs as of 06/26 - patient's body habitus is not prohibitive to transplant at this time. Edited by: Joe Garcia APRN at 06/26/20252111 Patient educated on transplant surgery evaluation process, listing, surgery time and expectations for follow-up and immunosuppressive medications. I spent 60 minutes chart review, counseling patient/family regarding diagnosis, [...] N/A Breast Surgery Reduction Procedure Bilateral from [facility] EXPLORATORY LAPAROTOMY GALLBLADDER SURGERY 2018 GANGLION CYST EXCISION, WRIST Left INCISION AND DRAINAGE, ABCESS 2010 from back LIVER BIOPSY OTHER SURGICAL HISTORY N/A Exploratory Laparotomy from [facility] OVARIAN CYST DRAINAGE N/A Aspiration Of Ovarian Cyst from [facility] TOTAL ABDOMINAL HYSTERECTOMY N/A 2011 Hysterectomy from [facility] [3] Family History Problem Relation Name Age [...] Heart attack Paternal Grandmother Hypertension Paternal Grandfather Breast cancer Mother's Sister [4] Current Facility-Administered Medications on File Prior to Encounter Medication Dose Route Frequency Provider Last Rate Last Admin [DISCONTINUED] furosemide (Lasix) injection 60 mg 60 mg Intravenous Once Nj Johns MD Current Outpatient Medications on File Prior to Encounter Medication Sig Dispense Refill bumetanide (Bumex) 1 MG tablet Take 2 tablets by mouth 2 times a day. 120 tablet 0 busPIRone (Buspar) 7.5 MG tablet Take 1 [...] (joint pain). ergocalciferol (Vitamin D-2) 1.25 MG (56993 UT) capsule Take 1 capsule by mouth 1 time per week. Take on Wednesday FeroSul 325 (65 Fe) MG tablet Take 1 tablet by mouth daily. hydrOXYzine pamoate (Vistaril) 25 MG capsule Take 1 capsule by mouth as needed for itching. insulin aspart (NovoLOG) 100 UNIT/ML injection vial Inject under the skin 3 (three) times daily with meals per correction scale as follows: blood sugar 150- 199 use 1 unit, 200-249 use 2 units, 250-299 use 3 units, 300-349 use 4 units, 350-399 use 5 units, >399 use 6 units and call provider. Max daily dose 50 units. [Paused] insulin glargine (Lantus) 100 UNIT/ML injection vial [...] 1 tablet by mouth daily. magnesium oxide (Mag-Ox) 400 (240 Mg) MG tablet Take 1 tablet by mouth 2 times a day. 60 tablet 0 metoprolol succinate XL (Toprol-XL) 50 MG 24 hr tablet Take 1 tablet by mouth every morning. Do notcrush or chew. ondansetron (Zofran) 8 MG tablet Take 1 tablet by mouth every 8 hours as needed for nausea or vomiting. oxyCODONE (Roxicodone) 5 MG immediate release tablet Take 1.5 tablets by mouth 3 times a day. Ozempic, 1 MG/DOSE, 4 MG/3ML solution pen-injector Inject 1 mg under the skin 1 time per week. pregabalin (Lyrica) 25 MG capsule Take 1 capsule by mouth 2 times a day. promethazine (Phenergan) 25 MG tablet Take 1 tablet by mouth every 6 hours as needed for nausea or vomiting. Rimegepant Sulfate (NURTEC PO) Take 1 tablet by mouth as needed. rOPINIRole (Requip) 1 MG tablet Take 1 tablet by mouth 3 times a day. spironolactone (Aldactone) 100 MG tablet Take 1 tablet by mouth 2 times a day. valACYclovir (Valtrex) 500 MG tablet Take 1 tablet by mouth every morning. zinc sulfate (Zincate) 220 (50 Zn) MG capsule Take 1 capsule by mouth 2 times a day. 240 capsule 2 [DISCONTINUED] rifAXIMin (Xifaxan) 550 MG tablet Take 1 tablet by mouth 2 times a day. Medicaid Applicant 180 tablet 0 [DISCONTINUED] diphenhydrAMINE (Benadryl) 50 MG tablet - 50 mg PO 1 hour prior to the [address] scan on 05-25-25 1 tablet 0 [DISCONTINUED] predniSONE (Deltasone) 50 MG tablet 50 mg PO, 13, 7, and [address] Scanon 05-25-25. 3 tablet 0 [5] Allergies Allergen Reactions Bactrim [Sulfamethoxazole-Trimethoprim] Hives Pt reports full body hives Povidone Iodine Itching and Rash With Betadine (topical). Vortioxetine Itching and Rash Wound Dressing Adhesive Other - please document in the comment field Breaks out where skin comes in contact with adhesive. Prevents wound healing if over a wound (e.g.,incision opened up where covering incision from breast reduction surgery). * Progress Notes - Alison Burns MD - 06/26/2025 4:22 PM EST Subjective Pt said she has been gaining wt , increased leg swelling and decreased urine output . Her wt has upsince last month. She received albumin and after 5.5 bags, she gets out of breath . Denied any recent infection, fever, chills or urinary symptoms. Review of Systems Complete review of system is negative except mentioned in subjective finding. '' Objective Vitals Temp: [36.3 ??C (97.3 ??F)-36.8 ??C (98.2 ??F)] 36.8 ??C (98.2 ??F) Heart Rate: [82-108] 87 Resp: [14-19] 16 BP: (89-105)/(55-69) 91/58 Physical Exam GENERAL:Alert and orientated, cooperative, in no acute distress. HEENT:Normal conjunctiva, no scleral icterus, mucous membranes- moist, no oral thrush, no sinus tenderness. CVS:Regular rhythm, normal rate, normal S1/S2, no murmur. RESPIRATORY: Normal breath sounds,clear on auscultation, no wheezing or rales. GASTROINTESTINAL:Normal BS. Abdomen-soft, non tender and non distended. No ascites or organomegalies MUSCULOSKELETAL:Extremities symmetric without pedal edema. INTEGUMENTARY:Warm, no rashes or cyanosis. NEUROLOGIC:Non-focal. Cranial nerves II-XII grossly intact. PSYCHIATRIC: Appropriate affect Assessment & Plan KENDRA (acute kidney injury) Anxiety and depression Type 2 diabetes mellitus GERD (gastroesophageal reflux disease) Hyperlipemia Obesity Essential hypertension Iron (Fe) deficiency anemia Congestive heart failure #Acute Kidney Injury c/b decompensated cirrhosis - Baseline creatinine 0.90-1.0; 1.54 on admission -Urine studies showed intrinsic renal disease. -pt has been gaining wt since last month . Baseline wt around 205. Increased leg swelling . -received albumin 5.5 bags at the infusion clinic but no improvement in renal function. Plan: -clinically hypervolemic. Gave Bumex 4 mg PO given but had only 300 ml urine output. -will give iv Bumex 2 mg x 1. - Renally dose medications; avoid nephrotoxins - Strict I&O - Renal function panel daily #Hypotension - Asymptomatic. Has soft BP at baseline. No s/s of sepsis or infection. #Decompensated cirrhosis - follows with [facility] - MELD 23 ( 08/26/24) - Ascites:Paracentesis Hx - 06/15, drained 3L . Home bumex 2 mg BID , spironolactone 100 mg BID. - HE: HE not present on admission. Lactulose & Rifaximin (insurance did not cover , Zinc - EV: EGD, : non-obstructing schatzki ring, 2 cm hiatal hernia, non bleeding GAVE s/p APC; metoprolol . Hold metoprolol in the setting of KENDRA. - HCC: q.6 months, AFP: 5.9 on 05/28; US liver 04/2024: without focal lesion Plan -consult GI and liver transplant. - 2g Na+ 2CC diet - No NSAIDs - hold home diuretics & Lactulose 2/2 KENDRA - continue remaining home meds #Type 2 DM - A1C:5.4 - Home regimen: Ozempic 1 mg weekly Jardiance 25 mg dialy Lanuts 10 units daily when FSBS > 150 Aspart sliding scale Plan - hold ozempic & Jardiance - hospital regimen: ISS pre protocol #Anemia - Hgb 10.4, Baseline 10-11; Iron Supplement, transfuse for Hgb < 7 #Thrombocytopenia - sec to cirrhosis. Transfuse for plt < 10 or <50 with active signs of bleeding #CHF - TTE, 05/28: EF 60% LA dilated; Stress Test, 05/28: no significant changes; Bumex, Spirolactone, Jardiance, all on hold #HTN - metoprolol 12.5 mg BID, lisinopril 2.5 mg daily, spironolactone #RLS - ropinirole 1 mg daily #HLD - simvastatin? #Anxiety/Depression - Buspar 7.5 mg BID, Pristiq 50 mg Daily #Neuropathy/Chronic pain - pregabalin 25 mg BID, Cyclobenzaprine 10 mg TID PRN, Oxycodone 5 mg q.6 hrs PRN #GERD - lansoprazole 30 mg daily #Migraines - Nurtec #Herpes - Valacyclovir 500 mg daily #Obesity - BMI 36.48, complicates all aspects of care Diet:regular, HPHC, < 2 gm Na < 2 L DVT prophylaxis: AC contraindicated in the setting of GI bleed and thrombocytopenia Code status:full code Disposition: Follow up: #Code Status - Full Code Medically Ready for Discharge:Anticipated in 2-4 Days * Care Plan - Edna Rebolledo RN - 06/26/2025 10:55 AM EST Problem: Adult Inpatient Plan of Care Goal: Plan of Care Review Outcome: Ongoing, Progressing Flowsheets (Taken 06/26/2025 0321 by Mariluz Dawson) Plan of Care Reviewed With: patient Goal: Patient-Specific Goal (Individualized) Outcome: Ongoing, Progressing Goal: Absence of Hospital-Acquired Illness or Injury Outcome: Ongoing, Progressing Intervention: Identify and Manage Fall Risk Flowsheets (Taken 06/26/2025 08) Safety Promotion/Fall Prevention: assistive device/personal items within reach clutter-free environment maintained fall prevention program maintained lighting adjusted mobility aid in reach toileting scheduled safety round/check completed room organization consistent nonskid shoes/slippers when out of bed Goal: Optimal Comfort and Wellbeing Outcome: Ongoing, Progressing Intervention: Monitor Pain and Promote Comfort Flowsheets (Taken 06/26/2025 0904) Pain Management Interventions: [id number] dosing utilized medication (see MAR) Problem: Fall Injury Risk Goal: Absence of Fall and Fall-Related Injury Outcome: Ongoing, Progressing Intervention: Identify and Manage Contributors Flowsheets (Taken 06/26/2025799) Medication Review/Management: medications reviewed Problem: Acute Kidney Injury/Impairment Goal: Fluid and Electrolyte Balance Outcome: Ongoing, Progressing Intervention: Monitor and Manage Fluid and Electrolyte Balance Flowsheets (Taken 06/26/2025799) Fluid/Electrolyte Management: fluids provided Goal: Improved Oral Intake Outcome: Ongoing, Progressing Intervention: Promote and Optimize Oral Intake Flowsheets (Taken 06/26/2025799) Oral Nutrition Promotion: rest periods promoted Goal: Effective Renal Function Outcome: Ongoing, Progressing Problem: Pain Acute Goal: Optimal Pain Control and Function Outcome: Ongoing, Progressing Intervention: Optimize Psychosocial Wellbeing Flowsheets (Taken 06/26/2025799) Diversional Activities: television Problem: Anemia Goal: Anemia Symptom Improvement Outcome: Ongoing, Progressing Intervention: Monitor and Manage Anemia Flowsheets (Taken 06/26/2025799) Safety Promotion/Fall Prevention: assistive device/personal items within reach clutter-free environment maintained fall prevention program maintained lighting adjusted mobility aid in reach toileting scheduled safety round/check completed room organization consistent nonskid shoes/slippers when out of bed Problem: Fluid Volume Deficit Goal: Fluid Balance Outcome: Ongoing, Progressing Intervention: Monitor and Manage Hypovolemia Flowsheets (Taken 06/26/2025799) Fluid/Electrolyte Management: fluids provided * Progress Notes - Betzaida Bardales - 06/26/2025 8:03 AM EST Case Management Adult Initial Progress Note Avis Pemberton 54 y.o. 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 No Insurance: Primary Visit Coverage Payer Plan Sponsor Code Group Number Group Name [employer] MED[employer] [place] -- -- -- Primary Visit Coverage Subscriber Subscriber ID Subscriber Name Subscriber SSN Subscriber Address [id number] AVIS PEMBERTON [id number] [place] [address] Patient information: Primary Caregiver: Self Support System: Immediate family Daily Living Activities: Functional Status: Assistive device Living Arrangements: Family (lives with sister) Type of Residence: Private residence [address] [place] [address] Current DME: Equipment Currently Used at Home: Cpap, walker, rollator Current DME Provider: Cpap with [employer]; rollator with [employer] Income Information: Income Source: Government aid Housing Circumstances-Z Codes: Housing Circumstances (select all that apply): Low Income (101-300% Federal Poverty Guidlines) - Z596 Patient's Discharge Goal: Patient/Family Anticipates Transition to: home with family Assistance Available at Discharge: Current Outpatient/Agency/Support Group: clinic(s), DME Availability of Care Givers (#Hours): 24 hours Discharge Transport: Transportation Anticipated: family or friend will provide Follow Up Transport: Transportation Needed to Follow up Appoinments: Family/Friend will Provide Home Health / Home Infusion / Outpatient Dialysis Services: None reported. Living Will/Advance Directive/Power of Product Management Specialist /Guardian: Advance Directive: Patient does not have advance directive Information Provided on Healthcare Directives: No Pre-existing DNR/DNI Order: No Patient Requests Assistance: No Betzaida Bardales * Lina Brown RN - 06/26/2025 7:58 AM EST Images from the original note were not included. [id number] Discharge Instructions for Liver Cirrhosis You have been diagnosed with cirrhosis of the liver. This is a long-term (chronic) problem. It occurs when liver tissue is destroyed and replaced by scar tissue. Causes of cirrhosis include: ? Infection, such as viral hepatitis. ? Chronic alcoholism. ? The body?s immune system attacking healthy cells (autoimmune disorders). ? Obesity, diabetes, high blood pressure, and high cholesterol. ? Medicine side effects. ? Genetic diseases. Sometimes the exact cause is unknown. You may not have any symptoms at first. Or your symptoms may be mild. But they usually get worse. Cirrhosis is likely to occur if you have a history of long-termalcohol abuse. Cirrhosis can?t be cured but may improve with treatments. Treatment choices depend on the cause and extent of liver damage. The goals are to prevent further damage and prevent complications. Home care Alcohol ? People with cirrhosis should not drink alcohol. If you stop drinking, you may feel better and live longer. Even if cirrhosis is not from alcohol, alcohol may cause the liver disease to get worse. ? If you are a chronic alcohol user, you will have withdrawal symptoms. Talk with your health care provider for more information. ? If alcohol is a problem, ask your provider about medicine that can help you quit drinking. ? Find a local Alcoholics Anonymous support group online at www.aa.org/. Diet ? Ask your provider what kind of diet you should follow. You may be asked to limit or not eat certain foods. Don't limit your lean protein intake. ? Weigh yourself daily and keep a weight log. If you have a sudden change in weight, call your provider. ? Cut back on salt. o Limit canned, dried, packaged, and fast foods. o Don?t add salt to your food at the table. o Season foods with herbs instead of salt when you cook. Medicines, supplements, and vaccines ? Take your medicines exactly as directed. ? Talk with your provider before taking vitamins, kgdy-yyw-gxkgkke medicines, or herbal supplements. Some supplements may be toxic to the liver. Pain medicines called NSAIDs (nonsteroidal anti-inflammatory drugs), such as ibuprofen, can harm the kidneys if you have cirrhosis. ? Don't take aspirin or other blood-thinning medicines unless directed by your provider. ? Discuss vitamin supplements and deficiencies with your provider. ? Ask your provider about getting vaccines for viruses that can cause liver diseases. ? Control any underlying conditions that may cause cirrhosis or make it worse. These include diabetes, obesity, high blood pressure, and high cholesterol and high triglycerides. See your provider regularly. Follow-up care Follow up with your health care provider as advised. You will likely have the following tests: ? Lab tests ? Blood tests for liver cancer ? Ultrasound or MRI scan of your liver every 6 months ? Endoscopy to check for swollen veins (varices) in your digestive tract ? Other tests and medicines as needed if the cirrhosis gets worse. When to contact your doctor Call your health care provider or get medical care right away if you have any of the following: ? Fever of 100.4??F ( 38??C) or higher, or as directed by your provider ? Extreme tiredness (fatigue), weakness, or lack of appetite ? Vomiting (with or without blood) ? Yellowing of your skin or eyes (jaundice) ? Itching ? Swelling in your belly or legs ? Black or tarry stools ? Skin that bruises easily ? Confusion or trouble thinking clearly Last Reviewed Date: 2024 00:00:00 ?? [id number] The [employer]. All rights reserved. This information is not intended as a substitute for professional medical care. Always follow your healthcare professional's instructions. * Lew [facility]oraFORMERLY [facility] - Lina Owen RN - 06/26/2025 7:57 AM EST Images from the original note were not included. [id number] Discharge Instructions for Acute Kidney Injury You have been diagnosed with acute kidney injury. This means that you have had a sudden episode of kidney failure or damage that causes your kidneys not to work correctly. When both kidneys are healthy, they help filter out fluid and waste from the blood and body. Acute kidney injury has many causes. These include urinary blockages, infections, such as COVID-19, lack of enough blood supply, a major health event such as heart surgery, and medicines that can injure kidneys. In some cases, acute kidney injury is short-term (temporary). This type lasts several days to a few months. This is because the kidney can repair itself. Acute kidney injury can also result in chronic kidney disease or end-stage renal failure. Here are some directions for you to follow as you recover. Home care ? Follow any directions for eating and drinking given to you by your healthcare provider. o Drink less fluid, if directed by your healthcare provider. o Keep a record of everything you eat and drink. ? Measure the amount of urine and stool you have each day. ? Weigh yourself every day, at the same time of day, and in the same kind of clothes. Keep a daily record of your daily weights. ? Take your temperature every day. Keep a record of the results. ? Learn to take your own blood pressure (BP). Your healthcare provider can teach you how to correctly measure your BP. Keep a record of your results. Bring the record to your follow-up appointments. Ask your healthcare provider when you should seek emergency medical attention. Your provider will tell you what blood pressure reading is dangerous. ? Stay away from people who have infections. This includes people with colds, bronchitis, or skin conditions. ? Practice good personal hygiene. Wash your hands often. This is especially important if you have acatheter in place when you leave the hospital. Doing so helps keep you safe from infection. ? Take your medicines exactly as directed. If you are confused about how to take any of your medications, call your healthcare provider. ? You may need frequent blood and urine tests. These are done to keep track of your kidney function. Follow-up care Follow up with your healthcare provider, or as advised. When to call your healthcare provider Call your healthcare provider right away if any of the following occur: ? Signs of bladder infection, such as urinating more often, burning or pain when you pee, pain above your pubic bone, blood in your urine, or trouble starting your urine stream ? Signs of infection around your catheter, such as redness, swelling, warmth, or fluid leaking ? Rapid weight loss or weight gain, such as 3 pounds or more in 24 hours or 6 pounds or more in 7 days ? Fever above 100.4?? F ( 38??C ) or as directed by your healthcare provider ? Chills ? Muscle aches ? Night sweats ? Very little or no urine output ? Swelling of your hands, legs, or feet ? Back pain ? Abdominal (belly) pain ? Extreme tiredness Last Reviewed Date: 2025 00:00:00 ?? [id number] [employer]. All rights reserved. This information is not intended as a substitute for professional medical care. Always follow your healthcare professional's instructions. * Care Plan - Mariluz Dawson - 06/26/2025 3:24 AM EST Problem: Adult Inpatient Plan of Care Goal: Plan of Care Review Outcome: Ongoing, Progressing Flowsheets (Taken 06/26/2025 032) Progress: no change Plan of Care Reviewed With: patient Goal: Patient-Specific Goal (Individualized) Outcome: Ongoing, Progressing Flowsheets (Taken 06/26/2025 0200) Patient/Family-Specific Goals (Include Timeframe): patient will be free from harm throughout the shift Individualized Care Needs: safety Anxieties, Fears or Concerns: none Goal: Absence of Hospital-Acquired Illness or Injury Outcome: Ongoing, Progressing Intervention: Identify and Manage Fall Risk Flowsheets (Taken 06/26/2025 0316) Safety Promotion/Fall Prevention: activity supervised assistive device/personal items within reach clutter-free environment maintained fall prevention program maintained lighting adjusted nonskid shoes/slippers when out of bed Intervention: Prevent Skin Injury Flowsheets (Taken 06/26/2025 0321) Body Position: weight shifting Skin Protection: protective footwear used Intervention: Prevent and Manage VTE (Venous Thromboembolism) Risk Flowsheets (Taken 06/26/2025 0316) VTE Prevention/Management: bilateral SCDs (sequential compression devices) on Intervention: Prevent Infection Flowsheets (Taken 06/26/2025 0321) Infection Prevention: rest/sleep promoted hand hygiene promoted Goal: Optimal Comfort and Wellbeing Outcome: Ongoing, Progressing Intervention: Monitor Pain and Promote Comfort Flowsheets (Taken 06/26/2025 0039 by Edna Avila RN) Pain Management Interventions: medication (see MAR) care clustered Intervention: Provide Person-Centered Care Flowsheets (Taken 06/26/2025 032) Trust Relationship/Rapport: care explained empathic listening provided reassurance provided thoughts/feelings acknowledged questions answered choices provided emotional support provided questions encouraged Problem: Fall Injury Risk Goal: Absence of Fall and Fall-Related Injury Outcome: Ongoing, Progressing Intervention: Identify and Manage Contributors Flowsheets (Taken 06/26/2025 032) Medication Review/Management: medications reviewed Self-Care Promotion: BADL personal objects within reach Intervention: Promote Injury-Free Environment Flowsheets (Taken 06/26/2025 0316) Safety Promotion/Fall Prevention: activity supervised assistive device/personal items within reach clutter-free environment maintained fall prevention program maintained lighting adjusted nonskid shoes/slippers when out of bed Problem: Acute Kidney Injury/Impairment Goal: Fluid and Electrolyte Balance Outcome: Ongoing, Progressing Intervention: Monitor and Manage Fluid and Electrolyte Balance Flowsheets (Taken 06/26/2025320) Fluid/Electrolyte Management: fluids provided Goal: Improved Oral Intake Outcome: Ongoing, Progressing Goal: Effective Renal Function Outcome: Ongoing, Progressing Intervention: Monitor and Support Renal Function Flowsheets (Taken 06/26/2025 032) Medication Review/Management: medications reviewed Problem: Pain Acute Goal: Optimal Pain Control and Function Outcome: Ongoing, Progressing Intervention: Optimize Psychosocial Wellbeing Flowsheets (Taken 06/26/2025320) Supportive Measures: active listening utilized Diversional Activities: television Spiritual Activities Assistance: affirmation provided Intervention: Develop Pain Management Plan Flowsheets (Taken 06/26/2025 0039 by Edna Avila RN) Pain Management Interventions: medication (see MAR) care clustered Intervention: Prevent or Manage Pain Flowsheets (Taken 06/26/2025320) Sensory Stimulation Regulation: television on Sleep/Rest Enhancement: relaxation techniques promoted Medication Review/Management: medications reviewed * H&P - Grady Briones APRN, DNP - 06/25/2025 10:13 PM ESTAssociated Order(s): Inpatient consult to Hospital Medicine Inpatient consult to Hospital Medicine Consult performed by: Grady Briones APRN, DNP Consult ordered by: Fish Li PA Reason for consult: KENDRA Chief complaint: Hypotension & Lightheadedness History Of Present Illness Avis Pemberton is a 54 y.o. female with past medical history of decompensated cirrhosis, CHF, HTN, type 2 DM, chronic pain, and anxiety/depression who presented to [facility] ED for evaluation ofhypotension. Ms. Pemberton was at the infusion clinic today receiving albumin as part of a workup for a liver transplant. She was slated to receive 100 g of albumin but during the transfusion she experienced hypotension, lightheadedness and a euphoric feeling. The transfusion was stopped, she received a proximally 68.75 g of albumin. She was instructed to come to ED for further evaluation. ED lab work was significant for anemia, thrombocytopenia, elevated coags, hyperglycemia, elevated serum creatinine, transaminitis, elevated lactate, and a UA negative for UTI. CXR found no acute findings.Hospital medicine was consulted due to concern for difficult fluid resuscitation giving +3 pitting edema and on diuretics. Upon assessment for admission, Ms. Pemberton was alert and oriented x3, afebrile, and HDS. Ms. Pemberton endorses lightheadedness, shortness of breath (chronic), palpitations, nausea, vomiting, unintended weight gain of 44 lb, neck pain, and leg swelling. She will be admitted to Hospital Medicine forfurther workup and evaluation. Past Medical History Past Medical History[1] Surgical History Surgical History[2] Family History[3] Social History She reports that she quit [...] after having used the following drugs: Marijuana. Allergies Bactrim [sulfamethoxazole-trimethoprim], Povidone iodine, Vortioxetine, and Wound dressing adhesive Scheduled: Current Scheduled Medications[4] Continuous: Current Continuous Medications[5] As needed: acetaminophen, 500 mg, q8h PRN cyclobenzaprine, 10 mg, TID PRN glucose, 15-30 grams of glucose, q15 min PRN Or dextrose 10 %, 125 mL, q15 min PRN Or dextrose 10 %, 250 mL, q15 min PRN Or glucagon (human recombinant), 1 mg, q15 min PRN diclofenac, 2 g, 4x daily PRN oxyCODONE, 5 mg, q6h PRN prochlorperazine, 5 mg, q6h PRN Or prochlorperazine, 2.5 mg, q6h PRN rOPINIRole, 1 mg, 4x daily PRN sodium chloride, 10 mL, PRN Prior to Admission medications Medication Sig Start Date End Date Taking? Authorizing Provider bumetanide (Bumex) 1 MG tablet Take 2 tablets by mouth 2 times a day. 05/31/25 06/30/25 Alison Burns MD busPIRone (Buspar) 7.5 MG tablet Take 1 tablet by mouth 2 times a day. 09/19/24 Provider, Historical cyclobenzaprine (Flexeril) 10 MG tablet Take 1 tablet by mouth 3 times a day as needed for muscle spasms. 03/27/25 Provider, Historical desvenlafaxine (Pristiq) 50 MG 24 hr tablet Take 1 tablet by mouth daily. Do not crush, chew, or split. Provider, Historical diclofenac (Voltaren) 1 % topical gel Place 2 g on the skin 4 times a day as needed (joint pain). 03/24/22 Provider, Historical diphenhydrAMINE (Benadryl) 50 MG tablet - 50 mg PO [address] prior to the [address] scan on 05-25-25 05/17/25 Nj Johns MD ergocalciferol (Vitamin D-2) 1.25 MG (27145 UT) capsule Take 1 capsule by mouth 1 time per week. Take on Wednesday04/09/20 Provider, Historical FeroSul 325 (65 Fe) MG tablet Take 1 tablet by mouth daily. 04/27/23 Provider, Historical insulin aspart (NovoLOG) 100 UNIT/ML injection vial Inject under the skin 3 (three) times daily with meals per correction scale as follows: blood sugar 150- 199 use 1 unit, 200-249 use 2 units, 250-299 use 3 units, 300-349 use 4 units, 350-399 use 5 units, >399 use 6 units and call provider. Max daily dose 50 units. 05/31/25 Alison Burns MD [Paused] insulin glargine (Lantus) 100 UNIT/ML injection vial Inject 20 Units under the skin every morning. Patient not taking: Reported on 06/19/2025 Wait to take this until your doctor or other care provider tells you to start again. Provider, Historical Jardiance 25 MG Take 1 tablet by mouth daily. 05/13/23 Provider, Historical lactulose (Chronulac) 10 GM/15ML oral solution Take 15 mL by mouth daily. 03/20/25 Provider, Historical lansoprazole (Prevacid) [address] capsule Take 1 capsule by mouth daily. 08/18/22 Provider, Historical lisinopril 2.5 MG tablet Take 1 tablet by mouth daily. Provider, Historical magnesium oxide (Mag-Ox) 400 (240 Mg) MG tablet Take 1 tablet by mouth 2 times a day. 05/31/25 06/30/25 Alison Burns MD metoprolol succinate XL (Toprol-XL) 50 MG 24 hr tablet Take 1 tablet by mouth every morning. Do notcrush or chew. Provider, Historical oxyCODONE (Roxicodone) 5 MG immediate release tablet Take 1-1.5 tablets by mouth every 4 to 6 hoursas needed for severe pain. 02/12/25 Provider, Historical Ozempic, 1 MG/DOSE, 4 MG/3ML solution pen-injector Inject 1 mg under the skin 1 time per week. 09/19/24 Provider, Historical predniSONE (Deltasone) 50 MG tablet 50 mg PO, 13, 7, and [address] Scan on 05-25-25. 05/18/25 Kaela Khan MD pregabalin (Lyrica) 25 MG capsule Take 1 capsule by mouth 2 times a day. 02/23/25 Provider, Historical rifAXIMin (Xifaxan) 550 MG tablet Take 1 tablet by mouth 2 times a day. Medicaid Applicant Patient not taking: Reported on 06/19/2025 05/31/25 08/29/25 Alison Burns MD rOPINIRole (Requip) 1 MG tablet Take 1 tablet by mouth 4 times a day. 07/20/22 Provider, Historical spironolactone (Aldactone) 100 MG tablet Take 2 tablets by mouth every morning. 09/08/24 Provider, Historical valACYclovir (Valtrex) 500 MG tablet Take 1 tablet by mouth every morning. Provider, Historical zinc sulfate (Zincate) 220 (50 Zn) MG capsule Take 1 capsule by mouth 2 times a day. 05/18/25 05/13/26 Nish Hawley MD Labs (in last 24 hours): CBC: Lab Results Component Value Date WBC 5.71 06/25/2025 RBC 2.89 (L) 06/25/2025 HGB 10.4 (L) 06/25/2025 HCT 30.5 (L) 06/25/2025 PLT 57 (L) 06/25/2025 MCV 106 (H) 06/25/2025 MCH 36.0 (H) 06/25/2025 MCHC 34.1 06/25/2025 RDW 13.9 06/25/2025 NRBC 0.0 06/25/2025 Differential: Lab Results Component Value Date WBC 5.71 06/25/2025 NEUTOPHILPCT 66 06/25/2025 LYMPHOPCT 18 06/25/2025 MONOPCT 10 06/25/2025 EOSPCT 4 06/25/2025 Coagulation: Lab Results Component Value Date INR 1.7 (H) 06/25/2025 Renal: Lab Results Component Value Date NA 133 (L) 06/25/2025 K 3.6 06/25/2025 CL 96 (L) 06/25/2025 CO2 26 06/25/2025 BUN 23 (H) 06/25/2025 CREATININE 1.53 (H) 06/25/2025 GLUCOSE 148 (H) 06/25/2025 CALCIUM 9.6 06/25/2025 MG 2.2 06/25/2025 Liver: Lab Results Component Value Date AST 67 (H) 06/25/2025 ALT 42 (H) 06/25/2025 BILITOT 2.5 (H) 06/25/2025 Glucose: No results found for: PGLU Lab Results Component Value Date HGBA1C 5.4 05/18/2025 Microbiology: Results Procedure Component Value Units Date/Time Blood Culture (Aerobic/Anaerobet Set) [[id number]] Collected: 06/25/251800 Order Status: Completed Specimen: Blood, Venous Updated: 06/25/252101 Culture Culture in lab Narrative: Low blood volume submitted, results may be compromised Blood Culture (Aerobic/Anaerobet Set) [[id number]] Collected: 06/25/25 1840 Order Status: Completed Specimen: Blood from Hand, Left Updated: 06/25/252101 Culture Culture in lab Narrative: Low blood volume submitted, results may be compromised SARS-CoV-2 COVID-19/Influenza A,B [[id number]] (Normal) Collected: 06/25/25 165 Order Status: Completed Specimen: Swab from Nasopharynx Updated: 06/25/25 173 SARS CoV-2/COVID-19 RNA PCR Result Not Detected Comment: For In Vitro Diagnostic Use Influenza A Virus PCR Result Not Detected Comment: For In Vitro Diagnostic Use Influenza B Virus PCR Result Not Detected Comment: For In Vitro Diagnostic Use Narrative: This test was performed using the Patricia SARS-CoV-2 & Influenza A/B assay on the Prachi Karen analyzer, an RT-PCR based method. Negative results do not preclude infection with the SARS-CoV-2 virus and should not be the sole basis of a patient treatment/management or public health decision. Follow up testing should be performed according to the current CDC recommendations. The limit of detection (LoD) for this assay is 12 cp/mL SARS-CoV-2 RNA. Use of the Patricia SARS-CoV-2 & Influenza A/B assay in an asymptomatic screening population is intended to be used as part of an infection control plan that may include additional preventative measures, such as a predefined serial testing plan or directed testing of high-risk individuals. Negative results should be considered presumptive and do not preclude current or future infection obtained through community transmission or other exposures. Negative results must be considered in the context of an individual's recent exposures, history, presence of clinical signs and symptoms consistent with COVID-19. Imaging (in last 24 hours): XR Chest 1 View Result Date: 06/25/2025 No acute finding CRITICAL RESULT: No. COMMUNICATION: Per this written report. Drafted by Tyler Chino MD on 06/25/2025 6:34 PM Final report signed by Tyler Chino MD on 06/25/2025 6:35 PM EKG/Echo: Encounter Date: 06/25/25 ECG Adult Result Value EKG DIAGNOSIS CLASS Abnormal Ventricular Rate 107 Atrial Rate 107 NE Interval 132 QRSD Interval 90 QT Interval 362 QTC Interval 483 P Wilson 62 R Wilson 38 T Wave Wilson 58 Diagnosis Sinus tachycardia Diagnosis QTcB >= 480 msec Diagnosis Abnormal ECG *Note: Due to a large number of results and/or encounters for the requested time period, some results have not been displayed. A complete set of results can be found in Results Review. Echo, Adult Transthoracic Complete Result Date: 05/28/2025 Left Ventricle: The left ventricle is not well visualized. Based on the linear dimension and/or 2D volumes, the left ventricle is normal in size. There is normal left ventricular myocardial thicknessand mass. No left ventricular mass or thrombus is seen. The left ventricular systolic function is normal. The LVEF as measured by biplane volume is 60%. The left ventricular filling pressure is normal. Due to poor image quality, comprehensive regional wall motion was not interpretable; but no focalwall motion abnormalities were seen in the visualized segments. Left Atrium: The left atrium is dilated by visual assessment. There is appearance of a few agitated saline bubbles in the left heart after maneuvers to increase right sided pressure consistent with a small patent foramen ovale (PFO) ormild transpulmonary transit. There is no recent study available for direct [id number] comparison. Last Recorded Vitals Vitals: 06/25/25 1645 06/25/25 2046 06/26/25 0029 BP: 94/58 101/66 Pulse: 108 93 Resp: 19 17 Temp: 36.7 ??C (98 ??F) 36.7 ??C (98.1 ??F) SpO2: 96% 99% Weight: 96.4 kg (212 lb 8.4 oz) 96.4 kg (212 lb 8.4 oz) No intake or output data in the 24 hours ending 06/26/25 0111 Admission weight: Weight: 96.4 kg (212 lb 8.4 oz) Review of Systems Constitutional: Positive for unexpected weight change. HENT: Negative. Eyes: Negative. Respiratory: Positive for shortness of breath. Cardiovascular: Positive for palpitations. Gastrointestinal: Positive for nausea and vomiting. Genitourinary: Negative. Musculoskeletal: Positive for gait problem and neck pain. Allergic/Immunologic: Negative. Neurological: Positive for light-headedness. Negative for dizziness, weakness and headaches. Hematological: Negative. Psychiatric/Behavioral: Negative. Physical Exam Constitutional: Appearance: Normal appearance. She is obese. HENT: Head: Normocephalic and atraumatic. Right Ear: External ear normal. Left Ear: External ear normal. Nose: Nose normal. Mouth/Throat: Mouth: Mucous membranes are dry. Pharynx: Oropharynx is clear. Eyes: Extraocular Movements: Extraocular movements intact. Conjunctiva/sclera: Conjunctivae normal. Pupils: Pupils are equal, round, and reactive to light. Cardiovascular: Rate and Rhythm: Normal rate and regular rhythm. Pulses: Normal pulses. Heart sounds: Normal heart sounds. Pulmonary: Effort: Pulmonary effort is normal. Breath sounds: Normal breath sounds. Abdominal: General: Bowel sounds are normal. Palpations: Abdomen is soft. Musculoskeletal: General: Normal range of motion. Cervical back: Normal range of motion and neck supple. Skin: General: Skin is dry. Capillary Refill: Capillary refill takes less than 2 seconds. Neurological: General: No focal deficit present. Mental Status: She is alert and oriented to person, place, and time. Mental status is at baseline. Psychiatric: Mood and Affect: Mood normal. Behavior: Behavior normal. Thought Content: Thought content normal. Judgment: Judgment normal. Assessment and plan: Principal problem: KENDRA (acute kidney injury) - Principal Problem: KENDRA (acute kidney injury) Active Problems: Anxiety and depression Type 2 diabetes mellitus GERD (gastroesophageal reflux disease) Hyperlipemia Obesity Essential hypertension Iron (Fe) deficiency anemia Congestive heart failure #Acute Kidney Injury c/b decompensated cirrhosis - Baseline creatinine 0.90-1.0; 1.54 on admission - Last dose of diuretics was 12/15 in AM Plan: - UA and urine lytes; - renal US pending - LR bolus, LR @ 100 ml/hr - Renally dose medications; avoid nephrotoxins - hold home diuretics ( Bumex 2 mg BID, Spironolactone 100 mg BID) - consider albumin challenge if KENDRA dose not improve with fluid resuscitation - Strict I&O - Renal function panel daily #Hypotension - Clinic vitals: HR 110, BP 82/46 - Temp: 36.7 ??C (98.1 ??F), HR: 93, BP: 101/66, RR: 17, SpO2: 99% - appear to have resolved Plan - monitor - orthostatic vitals #HX of E.Coli Bacteremia - WBC: 5.71, H&H: 10.4 (L)/ 30.5 (L), Plt: 57 (L), ANC: 3.83 - with concern for hypotension and recent hospitalization with bacteremia ED initiated sepsis work up Plan - follow with ED infectious work up #Decompensated cirrhosis - follows with [facility] - Previous MELD upon discharge from last admission: 19 - Paracentesis Hx - 06/15, drained 3L - Total Protein: 6.7, Albumin: 3.8, T.Bili: 2.5 (H), AST: 67 (H), ALT: 42 (H), Alk Phos: 149 (H), - pH: 7.35, pCO2: 51, pO2: 23 (L), HCO3: 28 (H), BE: 1.8, - Lactate: 3.4 (H), Baseline: 3 - INR: 1.7 (H), PT: 20.3 (H), - Troponins: 17 (H)/20 (H), ProBNP: BNP:367 pg/mL (06/25 1657) - MELD 3.0: 23 at 06/25/2025 4:57 PM - MELD-Na: 23 at 06/25/2025 4:57 PM - HCC: q.6 months, AFP: 5.9 on 05/28; US liver 04/2024: without focal lesion - HE: Lactulose & Rifaximin (insurance did not cover and was not taking, recent received voucher), Zinc - EV: EGD, : non-obstructing schatzki ring, 2 cm hiatal hernia, non bleeding GAVE s/p APC; metoprolol - Ascites: Para /, Bumex & Spironolactone Plan - IR consult for paracentesis if needed - IV albumin if >5L removal - 2g Na+ 2CC diet - No NSAIDs - hold home diuretics & Lactulose 2/2 KENDRA - continue remaining home meds #Type 2 DM - Glu 148 - Home regimen: Ozempic 1 mg weekly Jardiance 25 mg dialy Lanuts 10 units daily when FSBS > 150 Aspart sliding scale Plan - hold ozempic & Jardiance - hospital regimen: ISS pre protocol - FSBS per protocol - diet as above #Anemia - Hgb 10.4, Baseline 10-11; Iron Supplement, transfuse for Hgb < 7 #Thrombocytopenia - Plt 57, Baseline 50-70; transfuse for plt < 10 or <50 with active signs of bleeding #CHF - TTE, 05/28: EF 60% LA dilated; Stress Test, 05/28: no significant changes; Bumex, Spirolactone, Jardiance, all on hold #HTN - metoprolol 12.5 mg BID, lisinopril 2.5 mg daily, spironolactone #RLS - ropinirole 1 mg daily #HLD - simvastatin? #Anxiety/Depression - Buspar 7.5 mg BID, Pristiq 50 mg Daily #Neuropathy/Chronic pain - pregabalin 25 mg BID, Cyclobenzaprine 10 mg TID PRN, Oxycodone 5 mg q.6 hrs PRN #GERD - lansoprazole 30 mg daily #Migraines - Nurtec #Herpes - Valacyclovir 500 mg daily #Obesity - BMI 36.48, complicates all aspects of care #Code Status - Full Code Diet Adult diet Diet texture: Regular; Carbohydrate restriction: Consistent Carb 2 (80 gm max/meal); Sodium restriction: 2,000 mg Na DVT prophylaxis SCDs [1] Past Medical History: Diagnosis Date Anemia [...] N/A Breast Surgery Reduction Procedure Bilateral from [facility] EXPLORATORY LAPAROTOMY GALLBLADDER SURGERY 2018 GANGLION CYST EXCISION, WRIST Left INCISION AND DRAINAGE, ABCESS 2010 from back LIVER BIOPSY OTHER SURGICAL HISTORY N/A Exploratory Laparotomy from [facility] OVARIAN CYST DRAINAGE N/A Aspiration Of Ovarian Cyst from [facility] TOTAL ABDOMINAL HYSTERECTOMY N/A 2011 Hysterectomy from [facility] [3] Family History Problem Relation Name Age [...] Heart attack Paternal Grandmother Hypertension Paternal Grandfather Breast cancer Mother's Sister [4] busPIRone, 7.5 mg, Oral, BID desvenlafaxine, 50 mg, Oral, Daily ferrous sulfate, 324 mg, Oral, Daily with breakfast insulin lispro, 0-5 Units, Subcutaneous, TID with meals insulin lispro, 0-3 Units, Subcutaneous, Twice at night lactated Ringer's, 1,000 mL, Intravenous, Once lactulose, 10 g, Oral, Daily magnesium oxide, 400 mg, Oral, BID metoprolol succinate XL, 50 mg, Oral, q AM pantoprazole, 40 mg, Oral, Daily rifAXIMin, 550 mg, Oral, BID sodium chloride, 10 mL, Intravenous, q12h valACYclovir, 500 mg, Oral, q AM zinc sulfate, 220 mg, Oral, BID [5] lactated Ringer's, 100 mL/hr, Last Rate: 100 mL/hr (06/26/25 0047) * ED Provider Notes - Fish Li PA - 06/25/2025 4:26 PM EST Images from the original note were not included. - HPI No chief complaint on file. PIT NOTE Avis Pemberton is a 54 y.o. female who presents to the ED with hypotension. Pt reports she was receiving an Albumin infusion and Lasix [facility], states she started feeling funny with low BP of 82/46. Pt c/o some SOA and increased weakness upon presentation here. Pt endorses some nausea yesterday, denies vomiting or diarrhea. Pt notes she presented here 05/31 d/t sepsis secondary to E.Coli bacteremia. Pt endorses her last paracentesis was 06/15. Pt denies fever, chills, abdominal pain, headache, dizziness, chest pain, and urinary symptoms. History provided by: Patient associate school psychologist used: No GSH Main Note: KMP: Agree with above statements from physician and triage. This is a 54-year-old female with a history of congestive heart failure, hypertension, history of spinal osteomyelitis and spinal abscess, nonalcoholic cirrhosis, history of hepatic encephalopathy, type 2 diabetes, who presents today for ev aluation of hypotension. She mentions that she was at liver clinic receiving an albumin infusion. She last had paracentesis on 06/15. Denies having abdominal pain, had episode of vomiting yesterday, once. Today she notes that she was following up for albumin infusion and reports that she feels likeshe is floaty and denies presyncope, vertigo. She denies CP, SOA. Reports compliance with medications. Reports that she has fluid buildup on her that they have been managing with Bumex and spironolactone. I reviewed her hospital visit from 05/24 where she was admitted for bacteremia. Was admitted for decompensated cirrhosis of sepsis. Was transferred at the time due to leukocytosis to 18,000, hyponatremia, lactic acidosis, and was CT has been concerning for diffuse edematous wall thickening throughout the colon that has concerning for colitis. Outside hospital blood cultures showed E coli, received broad-spectrum antibiotics with Zosyn, with clinical improvement and resolution of sepsis. Repeat cultures were obtained and were negative. Was treated with IV Bumex for generalized anasarca. Was continued on Bumex and spironolactone. Reviewed visit from today and patient experienced hypotension to 82/46 today with a pulse of 110. The albumin infusion was partially completed. Patient states that this symptom began after about 4 bags of albumin infused. Patient History Past Medical History[1] Surgical History[2] Family History[3] Social History[4] Allergies: Allergies[5] Physical Exam ED Triage Vitals Temp Pulse Resp BP -- -- -- -- SpO2 Temp src Heart Rate Source Patient Position -- -- -- -- BP Location FiO2 (%) -- -- Physical Exam Vitals and nursing note reviewed. Constitutional: General: She is not in acute distress. Appearance: She is well-developed. HENT: Head: Normocephalic and atraumatic. Eyes: Conjunctiva/sclera: Conjunctivae normal. Cardiovascular: Rate and Rhythm: Normal rate and regular rhythm. Heart sounds: No murmur heard. Pulmonary: Effort: Pulmonary effort is normal. No respiratory distress. Breath sounds: Normal breath sounds. Abdominal: Palpations: Abdomen is soft. Tenderness: There is no abdominal tenderness. Musculoskeletal: General: No swelling. Cervical back: Neck supple. Right lower le+ Pitting Edema present. Left lower le+ Pitting Edema present. Skin: General: Skin is warm and dry. Capillary Refill: Capillary refill takes less than 2 seconds. Neurological: Mental Status: She is alert. Psychiatric: Mood and Affect: Mood normal. No data recorded ED Course & MDM - Assessment: 54 y.o. female presents to ED with complaint of hypotension, dizziness. It should be noted that thechronic conditions includes cirrhosis, which currently is not at goal therapy. This complicates theclinical picture because it Comorbidities: may be exacerbating symptoms and increases the amount and complexity of data to be reviewed Differential Diagnosis: Hypotension, bacteremia, services, infection, fluid overload, KENDRA, dehydration, among others In order to fully explore the differential diagnosis the following treatments and tests were ordered: All Other Orders Ordered Status Ordering Provider 06/25/252113 Inpatient consult to Hospital Medicine Once Specialty: Internal Medicine Provider: (Not yet assigned) Acknowledged JEN FISH M 06/25/252113 ED to floor bed request Once Acknowledged JEN FISH M 06/25/251746 Intake and output Every 4 hours Acknowledged JEN FISH M 06/25/25 172 Troponin T, High Sensitivity, 2 Hour, Plasma PROCEDURE ONCE Final result GAVIN BLACKMON 06/25/251746 Urinalysis with reflex microscopic AND reflex culture (IF UTI SUSPECTED) Once Preliminary result JEN FISH M 06/25/251747 Urinalysis with reflex microscopic (Culture NOT Included) PROCEDURE ONCE Final result JEN FISH M 06/25/25 174 Urine Contreras Panel PROCEDURE ONCE Preliminary result JEN FISH M 06/25/251746 Until discontinued Canceled JEN FISH M 06/25/251746 Once Canceled JEN FISH M 06/25/251746 Until discontinued Canceled LI, FISH M 06/25/251746 XR Chest 1 View One time imaging Comments: Portable Final result JEN FISH M 06/25/251725 Initiate contact isolation Continuous Comments: Added via Instant Order OPA Acknowledged BPA, INSTANT ORDERS 12/15/25 1726 Initiate N95 isolation Continuous Comments: Added via Instant Order OPA Acknowledged BPA, INSTANT ORDERS 06/25/25 1726 Initiate eye protection Continuous Comments: Added via Instant Order OPA Acknowledged BPA, INSTANT ORDERS 06/25/25 1726 Blood Culture (Aerobic/Anaerobet Set) STAT Preliminary result FISH LI 06/25/25 1726 Blood Culture (Aerobic/Anaerobet Set) STAT Preliminary result FISH LI 06/25/25 1650 Blood gas panel, venous STAT Final result BLACKMON, GAVIN L 06/25/25 1649 SARS-CoV-2 COVID-19/Influenza A,B STAT Final result BLACKMON, GAVIN L 06/25/25 1649 PT-INR STAT Final result BLACKMON, GAVIN L 06/25/25 1649 BNP STAT Final result BLACKMON, GAVIN L 06/25/25 1649 Troponin now and 120 min STAT Final result BLACKMON, GAVIN L 06/25/25 1649 ECG Adult Once Preliminary result BLACKMON, GAVIN L 06/25/25 1649 CBC w/diff STAT Final result BLACKMON, GAVIN L 06/25/25 1649 CMP STAT Final result BLACKMON, GAVIN L 06/25/25 1649 Magnesium STAT Final result BLACKMONGAVIN L ED Course as of 06/25/25 2332 WedJun 25, 2025 170 BP: 94/58 Low-normal blood pressure [KP] 1701 Heart Rate: 108 Tachycardia [KP] 1701 Resp: 19 [KP] 1701 SpO2: 96 % [KP] 1701 Temp: 36.7 ??C (98 ??F) [KP] 1714 pH, Venous: 7.35 [KP] 1714 pCO2, Venous: 51 [KP] 1714 Potassium, Whole Blood(!): 3.4 Mildly decreased [KP] 1714 Lactate(!): 3.4 Elevated [KP] 1715 ECG Adult Patient's EKG was independently reviewed by me and noted the following findings: no acute ST / T wave changes, sinus tachycardia QTC < 500 however more than 480 [KP] 1723 INR(!): 1.7 [KP] 1723 Prothrombin Time(!): 20.3 [KP] 1724 N-Terminal, PROBNP, Plasma: 367 [KP] 1724 Magnesium: 2.2 [KP] 1725 Troponin T, High Sensitivity, 0 Hour(!): 17 Elevated [KP] 1727 RBC(!): 2.89 [KP] 1727 Hemoglobin(!): 10.4 [KP] 1727 Hematocrit(!): 30.5 [KP] 1727 Platelet Count(!): 57 [KP] 1727 MCV(!): 106 [KP] 1727 MCH(!): 36.0 [KP] 1727 At this time, given her history of E coli bacteremia, that has hypotensive episode with tachycardia, and difficulty with management likelihood as an outpatient due to her now KENDRA, and her fluid status today, will admit for further management. Considered starting patient on antibiotics, and will defer at this time given no symptoms. Will have inpatient service trend. [KP] 1754 At her last ED visit she was in the 100s systolic, and tachycardic to 120s. [KP] 1816 XR Chest 1 View No obvious consolidation on my interpretation [KP] 2010 Troponin Delta Interpretation: Not Significant [KP] 2010 Troponin T, High Sensitivity, 2 Hour(!): 20 [KP] 2010 Nitrite, Urine: Negative [KP] 2010 Leukocytes, Urine: Negative [KP] 2104 I spoke with medicine for admission for KENDRA, episodic hypotension, and for optimization of care given her fluid status 2/2 to her cirrhosis. Upon interactive discussion they agreed that patient should be inpatient. Patient stable. [KP] ED Course User Index [KP] Fish Li PA Clinical Impressions as of 06/25/25 2332 Hypotension, unspecified hypotension type Cirrhosis of liver without ascites, unspecified hepatic cirrhosis type Social Determinates of Health Risks (including Economic Stability, Education and level of understanding, Healthcare access and quality and concerning social factors): None identified on this visit Ultimately, this patient was Was admitted (Admission) The primary encounter diagnosis was Hypotension, unspecified hypotension type. A diagnosis of Cirrhosis of liver without ascites, unspecified hepatic cirrhosis type was also pertinent to this visit.. Patient believed to require admission for the listed diagnoses. The Internal Medicine service was consulted for admission and was agreeable to admit to Acute Floor (Med/Surg). ED Prescriptions None Disposition Admit Requested Location: [facility] [[id number]] [facility] Date/Time: 06/25/2025, 4:50 PM Entered by Ashley Alonso acting as scribe for Dr. Blackmon, [place] L, DO. Attending Attestation: The documentation was recorded by Ashley Alonso acting as scribe in my presence at [...] N/A Breast Surgery Reduction Procedure Bilateral from [facility] [facility] EXPLORATORY LAPAROTOMY GALLBLADDER SURGERY 2017 GANGLION CYST EXCISION, WRIST Left INCISION AND DRAINAGE, ABCESS 2009 from back LIVER BIOPSY OTHER SURGICAL HISTORY N/A Exploratory Laparotomy from [facility] [employer] [facility] OVARIAN CYST DRAINAGE N/A Aspiration Of Ovarian Cyst from [facility] [employer] [facility] TOTAL ABDOMINAL HYSTERECTOMY N/A 2011 Hysterectomy from [facility] [3] Family History Problem Relation Name Age [...] Heart attack Paternal Grandmother Hypertension Paternal Grandfather Breast cancer Mother's Sister [4] Tobacco Use Smoking status: Former Current packs/day: 0.00 Average packs/day: 0.1 packs/day for 10.6 years (1.1 ttl pk-yrs) Types: Cigarettes Start date: 2011 Quit date: 02/2022 Years since quittin.3 Passive exposure: Past Smokeless tobacco: Never Vaping Use Vaping status: Never Used Substance Use Topics Alcohol use: Not Currently Comment: not drinking since 2017 Drug use: Not Currently Types: Marijuana Comment: May 2024 last used [5] Allergies Allergen Reactions Bactrim [Sulfamethoxazole-Trimethoprim] Hives Pt reports full body hives Povidone Iodine Itching and Rash With Betadine (topical). Vortioxetine Itching and Rash Wound Dressing Adhesive Other - please document in the comment field Breaks out where skin comes in contact with adhesive. Prevents wound healing if over a wound (e.g.,incision opened up where covering incision from breast reduction surgery). Fish Li PA 06/25/25 4502 Cosigned by Breanna Soares MD at 06/30/2025 7:55 PM EST Associated attestation - Breanna Soares MD - 06/30/2025 7:55 PM EST The patient was seen only by Advanced Practice Provider (HARRY), and care was reviewed with me. * ED Triage Notes - Ale Cox RN - 06/25/2025 4:26 PM EST Patient was getting albumin infusions but experienced hypotension during it. Came here for further eval. documented in this encounter Plan of Treatment Upcoming Encounters Date Type Department Care Team (Late st Contact Info) Description 07/17/2025 8:45 AM EST Clinical Support [facility] [address] [place] [address] 07/17/2025 10:30 AM EST Office Visit [facility] [address] [place] [address] Nj Johns MD [address] [place] [address] Pending Results Name Type Priority Associated Diagnoses Date /Time ECG Adult ECG STAT 06/25/2025 5:0 4 PM EST Scheduled Orders Name Type Priority Associated Diagnoses Orde r Schedule CBC and differential Lab Routine KENDRA (acute kidney injury) End-stage liver disease (CMS/HCC) Expected: 07/02/2025 (Approximate), Expires: 01/03/2027 Comprehensive metabolic panel Lab Routine KENDRA (acute kidney injury) End-stage liver disease (CMS/HCC) Expected: 07/09/2025 (Approximate), Expires: 01/03/2027 Scheduled Referrals Name Type Priority Associated Diagnoses Orde r Schedule Discharge Ambulatory referral to Solid Organ Transplant Team Outpatient Referral Routine Abnormal electrocardiogram (ECG) (EKG) Ordered: 06/26/2025 documented as of this encounter Goals Goal Patient Goal Type Associated Problems Recent Progress Patient-Stated? Author Patient will attend follow-up appointment with transplant Care Plan Appointments No Cely Diaz RN Patient will monitor daily weights Care Plan Symptom management Not on track( 2:41 PM EST) No Cely Diaz RN Note: Regular weight 165 lb 06/04/2025: Weight 193.4 Patient weighed 208 lb while inpatient Patient will monitor glucose levels Care Plan Symptom management On track( 2:42 PM EST) No Cely Diaz RN Consistently take Medications as Prescribed- rifaximin Care Plan Med Adherence Not on track( 3:04 PM EST) Cely Patricia RN [facility] Care Plan Med Adherence Not on track( 3:04 PM EST) No Cely Diaz RN documented as of this encounter Procedures Procedure Name Priority Date/Time Associated Diagnosis Comments POCT GLUCOSE METER UNSOLICITED RESULTS Routine 07/02/2025 12:13 PM EST POCT GLUCOSE METER UNSOLICITED RESULTS Routine 07/02/2025 7:52 AM EST PROTHROMBIN TIME(PT) / INR Routine 07/02/2025 5:27 AM EST CBC W/O DIFFERENTIAL Routine 07/02/2025 5:27 AM EST MAGNESIUM, PLASMA Routine 07/02/2025 5:2 7 AM EST COMPREHENSIVE METABOLIC PANEL, PLASMA Routine 07/02/2025 5:27 AM EST POCT GLUCOSE METER UNSOLICITED RESULTS Routine 07/01/2025 7:53 PM EST POCT GLUCOSE METER UNSOLICITED RESULTS Routine 07/01/2025 5:23 PM EST POCT GLUCOSE METER UNSOLICITED RESULTS Routine 07/01/2025 12:14 PM EST POCT GLUCOSE METER UNSOLICITED RESULTS Routine 07/01/2025 7:57 AM EST PROTHROMBIN TIME(PT) / INR Routine 07/01/2025 2:44 AM EST CBC W/O DIFFERENTIAL Routine 07/01/2025 2:44 AM EST MAGNESIUM, PLASMA Routine 07/01/2025 2:4 4 AM EST COMPREHENSIVE METABOLIC PANEL, PLASMA Routine 07/01/2025 2:44 AM EST POCT GLUCOSE METER UNSOLICITED RESULTS Routine 06/30/2025 8:25 PM EST POCT GLUCOSE METER UNSOLICITED RESULTS Routine 06/30/2025 4:59 PM EST POCT GLUCOSE METER UNSOLICITED RESULTS Routine 06/30/2025 12:03 PM EST POCT GLUCOSE METER UNSOLICITED RESULTS Routine 06/30/2025 8:09 AM EST PROTHROMBIN TIME(PT) / INR Routine 06/30/2025 2:22 AM EST CBC W/O DIFFERENTIAL Routine 06/30/2025 2:22 AM EST MAGNESIUM, PLASMA Routine 06/30/2025 2:2 2 AM EST COMPREHENSIVE METABOLIC PANEL, PLASMA Routine 06/30/2025 2:22 AM EST POCT GLUCOSE METER UNSOLICITED RESULTS Routine 06/29/2025 8:05 PM EST POCT GLUCOSE METER UNSOLICITED RESULTS Routine 06/29/2025 5:40 PM EST MR ABDOMEN W AND WO IV CONTRAST Routine 06/29/2025 2:18 PM EST POCT GLUCOSE METER UNSOLICITED RESULTS Routine 06/29/2025 11:44 AM EST POCT ARTERIAL BLOOD GAS GEM UNSOLICITED RESULTS Routine 06/29/2025 10:39 AM EST POCT GLUCOSE METER UNSOLICITED RESULTS Routine 06/29/2025 8:01 AM EST POCT GLUCOSE METER UNSOLICITED RESULTS Routine 06/29/2025 6:15 AM EST PROTHROMBIN TIME(PT) / INR Routine 06/29/2025 3:39 AM EST CBC W/O DIFFERENTIAL Routine 06/29/2025 3:39 AM EST MAGNESIUM, PLASMA Routine 06/29/2025 3:3 9 AM EST COMPREHENSIVE METABOLIC PANEL, PLASMA Routine 06/29/2025 3:39 AM EST POCT GLUCOSE METER UNSOLICITED RESULTS Routine 06/29/2025 12:26 AM EST POCT GLUCOSE METER UNSOLICITED RESULTS Routine 06/28/2025 8:51 PM EST POCT GLUCOSE METER UNSOLICITED RESULTS Routine 06/28/2025 4:29 PM EST POCT GLUCOSE METER UNSOLICITED RESULTS Routine 06/28/2025 11:16 AM EST POCT ARTERIAL BLOOD GAS GEM UNSOLICITED RESULTS Routine 06/28/2025 8:26 AM EST POCT GLUCOSE METER UNSOLICITED RESULTS Routine 06/28/2025 7:49 AM EST PROTHROMBIN TIME(PT) / INR Routine 06/28/2025 6:15 AM EST CBC W/O DIFFERENTIAL Routine 06/28/2025 6:15 AM EST MAGNESIUM, PLASMA Routine 06/28/2025 6:1 5 AM EST COMPREHENSIVE METABOLIC PANEL, PLASMA Routine 06/28/2025 6:15 AM EST LACTATE, VENOUS Routine 06/27/2025 9:32 PM EST POCT GLUCOSE METER UNSOLICITED RESULTS Routine 06/27/2025 8:[address] ABDOMEN PELVIS WO IV CONTRAST Routine 06/27/2025 4:44 PM EST POCT GLUCOSE METER UNSOLICITED RESULTS Routine 06/27/2025 4:42 PM EST US ABDOMEN DOPPLER LIMITED Routine 06/27/2025 4:26 PM EST POCT GLUCOSE METER UNSOLICITED RESULTS Routine 06/27/2025 11:10 AM EST N-TERMINAL PROBNP, PLASMA Add-On 06/27/2025 8:51 AM EST MAGNESIUM, PLASMA Add-On 06/27/2025 8:5 1 AM EST COMPREHENSIVE METABOLIC PANEL, PLASMA Pending Discharge 06/27/2025 8:51 AM EST POCT GLUCOSE METER UNSOLICITED RESULTS Routine 06/27/2025 7:25 AM EST POCT GLUCOSE METER UNSOLICITED RESULTS Routine 06/27/2025 4:56 AM EST PROTHROMBIN TIME(PT) / INR Routine 06/27/2025 3:04 AM EST CBC W/O DIFFERENTIAL Routine 06/27/2025 3:04 AM EST FERRITIN, SERUM Routine 06/27/2025 3:04 AM EST COMPREHENSIVE METABOLIC PANEL, PLASMA Routine 06/27/2025 3:04 AM EST POCT GLUCOSE METER UNSOLICITED RESULTS Routine 06/26/2025 8:02 PM EST POCT GLUCOSE METER UNSOLICITED RESULTS Routine 06/26/2025 4:36 PM EST POCT GLUCOSE METER UNSOLICITED RESULTS Routine 06/26/2025 11:35 AM EST POCT GLUCOSE METER UNSOLICITED RESULTS Routine 06/26/2025 7:19 AM EST POCT GLUCOSE METER UNSOLICITED RESULTS Routine 06/26/2025 3:36 AM EST IRON & TOTAL IRON BINDING CAPACITY, PLASMA (INCLUDES TRANSFERRIN) Add-On 06/26/2025 2:25 AM EST APTT Routine 06/26/2025 2:25 AM EST PROTHROMBIN TIME(PT) / INR Routine 06/26/2025 2:25 AM EST CBC WITH AUTO DIFFERENTIAL Routine 06/26/2025 2:25 AM EST PHOSPHORUS, PLASMA Routine 06/26/2025 2: 25 AM EST MAGNESIUM, PLASMA Routine 06/26/2025 2:2 5 AM EST COMPREHENSIVE METABOLIC PANEL, PLASMA Routine 06/26/2025 2:25 AM EST UREA NITROGEN, RANDOM URINE Routine 06/26/2025 12:29 AM EST SODIUM, URINE, RANDOM Routine 06/26/2025 12:29 AM EST POTASSIUM, URINE, RANDOM Routine 06/26/2025 12:29 AM EST CREATININE, RANDOM URINE Routine 06/26/2025 12:29 AM EST CHLORIDE, RANDOM URINE Routine 06/26/2025 12:29 AM EST URINALYSIS WITH REFLEX MICROSCOPIC AND CULTURE STAT 06/25/2025 7:27 PM EST URINE CONTRERAS PANEL STAT 06/25/2025 7:27 PM EST URINALYSIS WITH REFLEX MICROSCOPIC STAT 06/25/2025 7:27 PM EST TROPONIN T, HIGH SENSITIVITY, 2 HOUR, PLASMA Timed 06/25/2025 7:26 PM EST BLOOD CULTURE (AEROBIC/ANAEROBIC SET) STAT 06/25/2025 6:40 PM EST XR CHEST 1 VIEW STAT 06/25/2025 6:33 PM EST BLOOD CULTURE (AEROBIC/ANAEROBIC SET) STAT 06/25/2025 6:01 PM EST ECG ADULT STAT 06/25/2025 5:04 PM EST SARS COV2 COVID 19/INFLUENZA A, B STAT 06/25/2025 4:58 PM EST TROPONIN T, HIGH SENSITIVITY, 0 HOUR, PLASMA, REFLEX TO 2 HOUR STAT 06/25/2025 4:57 PM EST N-TERMINAL PROBNP, PLASMA STAT 06/25/2025 4:57 PM EST PROTHROMBIN TIME(PT) / INR STAT 06/25/2025 4:57 PM EST CBC WITH AUTO DIFFERENTIAL STAT 06/25/2025 4:57 PM EST MAGNESIUM, PLASMA STAT 06/25/2025 4:5 7 PM EST BLOOD GAS PANEL, VENOUS STAT 06/25/2025 4:57 PM EST COMPREHENSIVE METABOLIC PANEL, PLASMA STAT 06/25/2025 4:57 PM EST documented in this encounter Results * (ABNORMAL) POCT glucose meter (07/02/2025 12:13 PM EST) POCT Glucose 126(H) 74 - 99 mg/dL 07/02/2025 12:15 PM EST [facility] Comment:Accuracy of a glucos e result obtained from a capillary whole blood specimen relies upon adequate, non-compromised capillary blood flow. If the capillary glucose result is not consistent with the patient's clinical signs and symptoms, glucose testing should be repeated with either an arterial or venous sample on the glucometer or sent to the main labortory for testing. Comment 07/02/2025 12:15 PM EST [facility] Director Of Nuclear Medicine ID Kiana Leeoe 07/02/20 12:15 PM EST [facility] Device ID [id number] 07/02/2025 12:15 PM EST [facility] Specimen Type POC Capillary 07/02/2025 12:15 PM EST [facility] Blood Capillary blood specimen / Unknown 07/02/2025 12:13 PM EST 07/02/2025 12:15 PM EST us Alison Burns MD LAB POINT OF CARE TE ST DOCKED DEVICE UNSOLICITED RESULTS Final Result [facility] [address] [place] [id number] * (ABNORMAL) POCT glucose meter (07/02/2025 7:52 AM EST) POCT Glucose 138(H) 74 - 99 mg/dL 07/02/2025 8:01 AM EST [facility] Comment:Accuracy of a glucos e result obtained from a capillary whole blood specimen relies upon adequate, non-compromised capillary blood flow. If the capillary glucose result is not consistent with the patient's clinical signs and symptoms, glucose testing should be repeated with either an arterial or venous sample on the glucometer or sent to the main labortory for testing. Comment 07/02/2025 8:01 AM EST [facility] Director Of Nuclear Medicine ID Sara Lee 07/02/20 8:01 AM EST [facility] Device ID [id number] 07/02/2025 8:01 AM EST [facility] Specimen Type POC Capillary 07/02/2025 8:01 AM EST [facility] Blood Capillary blood specimen / Unknown 07/02/2025 7:52 AM EST 07/02/2025 8:01 AM EST Alison Burns MD LAB POINT OF CARE TE ST DOCKED DEVICE UNSOLICITED RESULTS Final Result Performing Organization Address City/[facility]/ZIP Co de Phone Number [facility] [address] [place] [address] * (ABNORMAL) Prothrombin Time/INR (07/02/2025 5:27 AM EST) Prothrombin Time 21.6(H) 12.0 - 14.3 sec 07/02/2025 5:47 AM EST [facility] INR 1.8(H) 0.9 - 1.1 07/02/2025 5:47 AM EST [facility] Blood Venous blood specimen / Unknown Venipuncture / Unknown 07/02/2025 5:27 AM EST 07/02/2025 5:31 AM EST Narrative [facility] - 07/02/2025 5:47 AM EST OPTIMAL INR RANGES FOR PATIENT ON ORAL ANTICOAGULANT THERAPY Prevention of venous thromboembolism INR 2.0 to 3.0 In patients with heart disease: Atrial fibrillation INR 2.0 to 3.0 Valvular heart disease INR 2.0 to 3.0 Tissue heart valves INR 2.0 to 3.0 Mechanical prosthetic valves INR 2.5 to 3.5 Prevention of recurrent HI INR 2.5 to 3.5 us Alison Burns MD LAB BLOOD ORDERABLES Final Re sult [facility] [address] [place] [address] * Magnesium, Plasma (07/02/2025 5:27 AM EST) Magnesium, Plasma 2.1 1.9 - 2.4 mg/dL 07/02/2025 5:52 AM EST [facility] Blood Venous blood specimen / Unknown Venipuncture / Unknown 07/02/2025 5:27 AM EST 07/02/2025 5:31 AM EST us Alison Burns MD LAB BLOOD ORDERABLES Final Re sult [facility] [address] [place] [address] * (ABNORMAL) Comprehensive Metabolic Panel, Plasma (07/02/2025 5:27 AM EST) Glucose, Plasma 110(H) 74 - 99 mg/dL 07/02/2025 5:52 AM EST [facility] BUN, Plasma 16 7 - 21 mg/dL 07/02/2025 5:52 AM EST [facility] Creatinine, Plasma 1.09 0.60 - 1.10 mg/dL 07/02/2025 5:52 AM EST [facility] BUN/Creatinine Ratio 15 07/02/2025 5:52 AM EST [facility] Sodium, Plasma 134(L) 136 - 145 mmol/L 07/02/2025 5:52 AM EST [facility] Potassium, Plasma 3.9 3.6 - 4.9 mmol/L 07/02/2025 5:52 AM EST [facility] Chloride, Plasma 100 97 - 107 mmol/L 07/02/2025 5:52 AM EST [facility] CO2, Plasma 26 22 - 29 mmol/L 07/02/2025 5:52 AM EST [facility] Anion Gap 8 6 - 16 mmol/L 07/02/2025 5:52 AM EST [facility] Total Calcium, Plasma 8.4(L) 8.9 - 10.2 mg/dL 07/02/2025 5:52 AM EST [facility] Total Protein 5.3(L) 6.3 - 7.9 g/dL 07/02/2025 5:52 AM EST [facility] Albumin, Plasma 2.6(L) 3.5 - 5.2 g/dL 07/02/2025 5:52 AM EST [facility] AST, Plasma 60(H) 10 - 35 U/L 07/02/2025 5:52 AM EST [facility] ALT, Plasma 31 10 - 35 U/L 07/02/2025 5:52 AM EST [facility] Alkaline Phosphatase, Plasma 145(H) 35 - 104 U/L 07/02/2025 5:52 AM EST [facility] Total Bilirubin, Plasma 2.0(H) 0.2 - 1.1 mg/dL 07/02/2025 5:52 AM EST [facility] eGFRcr 60.1 mL/min/1.7 3m*2 07/02/2025 5:52 AM EST [facility] Comment:Reported eGFRcr in m L/min/1.73m2 is based the CKD-EPI 2020 equation that does not use a race coefficient. Blood Venous blood specimen / Unknown Venipuncture / Unknown 07/02/2025 5:27 AM EST 07/02/2025 5:31 AM EST us Alison Burns MD LAB BLOOD ORDERABLES Final Re sult [facility] [address] [place] [id number] * (ABNORMAL) CBC W/O Differential (07/02/2025 5:27 AM EST) WBC Count 3.08(L) 3.70 - 10.30 10*3/uL LAB HEMATOLOGY METHOD 07/02/2025 5:35 AM EST [facility] RBC Count 2.61(L) 3.90 - 5.20 10*6/uL LAB HEMATOLOGY METHOD 07/02/2025 5:35 AM EST [facility] HGB 9.3(L) 11.2 - 15.7 g/dL LAB HEMATOLOGY METHOD 07/02/2025 5:35 AM EST [facility] HCT 27.2(L) 34.0 - 45.0 % LAB HEMATOLOGY METHOD 07/02/2025 5:35 AM EST [facility] Platelet Count 36(L) 155 - 369 10*3/uL LAB HEMATOLOGY METHOD 07/02/2025 5:35 AM EST [facility] MCV 104(H) 79 - 98 fL LAB HEMATOLOGY METHOD 07/02/2025 5:35 AM EST [facility] MCH 35.6(H) 26.0 - 32.0 pg LAB HEMATOLOGY METHOD 07/02/2025 5:35 AM EST [facility] MCHC 34.2 30.7 - 35.5 g/dL LAB HEMATOLOGY METHOD 07/02/2025 5:35 AM EST [facility] RDW 13.8 11.5 - 14.5 % LAB HEMATOLOGY METHOD 07/02/2025 5:35 AM EST [facility] MPV 9.9 8.8 - 12.5 fL LAB HEMATOLOGY METHOD 07/02/2025 5:35 AM EST [facility] nRBC 0.0 <=0.0 per 100 WBCs LAB HEMATOLOGY METHOD 07/02/2025 5:35 AM EST [facility] Blood Venous blood specimen / Unknown Venipuncture / Unknown 07/02/2025 5:27 AM EST 07/02/2025 5:31 AM EST Alison Burns MD LAB BLOOD ORDERABLES Final Re sult [facility] [address] [place] [address] * (ABNORMAL) POCT glucose meter (07/01/2025 7:53 PM EST) POCT Glucose 160(H) 74 - 99 mg/dL 07/01/2025 7:54 PM EST [facility] Comment:Accuracy of a glucos e result obtained from a capillary whole blood specimen relies upon adequate, non-compromised capillary blood flow. If the capillary glucose result is not consistent with the patient's clinical signs and symptoms, glucose testing should be repeated with either an arterial or venous sample on the glucometer or sent to the main labortory for testing. Comment 07/01/2025 7:54 PM EST [facility] Director Of Nuclear Medicine ID Oscar Chaney 07/01/2025 7:54 PM EST [facility] Device ID [id number] 07/01/2025 7:54 PM EST [facility] Specimen Type POC Capillary 07/01/2025 7:54 PM EST [facility] Blood Capillary blood specimen / Unknown 07/01/2025 7:53 PM EST 07/01/2025 7:54 PM EST Alison Burns MD LAB POINT OF CARE TE ST DOCKED DEVICE UNSOLICITED RESULTS Final Result Performing Organization Address [facility] de Phone Number [facility] [address] [place] [address] * (ABNORMAL) POCT glucose meter (07/01/2025 5:23 PM EST) POCT Glucose 129(H) 74 - 99 mg/dL 07/01/2025 5:25 PM EST [facility] Comment:Accuracy of [...] to the main labortory for testing. Comment 07/01/2025 5:25 PM EST [facility] Director Of Nuclear Medicine ID Rosa, Sara 07/01/20 25 5:25 PM EST [facility] Device ID [id number] 07/01/2025 5:25 PM EST [facility] Specimen Type POC Capillary 07/01/2025 5:25 PM EST [facility] Blood Capillary blood specimen / Unknown 07/01/2025 5:23 PM EST 07/01/2025 5:25 PM EST Alison Burns MD LAB POINT OF CARE TE ST DOCKED DEVICE UNSOLICITED RESULTS Final Result Performing Organization Address [facility] Co de Phone Number [facility] [address] [place] [address] * (ABNORMAL) POCT glucose meter (07/01/2025 12:14 PM EST) POCT Glucose 123(H) 74 - 99 mg/dL 07/01/2025 12:16 PM EST [facility] Comment:Accuracy of [...] to the main labortory for testing. Comment 07/01/2025 12:16 PM EST [facility] Director Of Nuclear Medicine ID Sara Lee 07/01/20 12:16 PM EST [facility] Device ID [id number] 07/01/2025 12:16 PM EST [facility] Specimen Type POC Capillary 07/01/2025 12:16 PM EST [facility] Blood Capillary blood specimen / Unknown 07/01/2025 12:14 PM EST 07/01/2025 12:16 PM EST us Alison Burns MD LAB POINT OF CARE TE ST DOCKED DEVICE UNSOLICITED RESULTS Final Result Performing Organization Address City/[facility] Co de Phone Number [facility] [address] [place] [address] * (ABNORMAL) POCT glucose meter (07/01/2025 7:57 AM EST) POCT Glucose 119(H) 74 - 99 mg/dL 07/01/2025 8:01 AM EST [facility] Comment:Accuracy of a glucos e result obtained from a capillary whole blood specimen relies upon adequate, non-compromised capillary blood flow. If the capillary glucose result is not consistent with the patient's clinical signs and symptoms, glucose testing should be repeated with either an arterial or venous sample on the glucometer or sent to the main labortory for testing. Comment 07/01/2025 8:01 AM EST [facility] Director Of Nuclear Medicine ID Sara Lee 07/01/20 8:01 AM EST [facility] Device ID [id number] 07/01/2025 8:01 AM EST [facility] Specimen Type POC Capillary 07/01/2025 8:01 AM EST [facility] Blood Capillary blood specimen / Unknown 07/01/2025 7:57 AM EST 07/01/2025 8:01 AM EST us Alison Burns MD LAB POINT OF CARE TE ST DOCKED DEVICE UNSOLICITED RESULTS Final Result Performing Organization Address City/[facility]/ZIP Co de Phone Number [facility] [address] [place] [address] * (ABNORMAL) Prothrombin Time/INR (07/01/2025 2:44 AM EST) Prothrombin Time 21.0(H) 12.0 - 14.3 sec 07/01/2025 4:07 AM EST [facility] INR 1.8(H) 0.9 - 1.1 07/01/2025 4:07 AM EST [facility] Blood Venous blood specimen / Unknown Venipuncture / Unknown 07/01/2025 2:44 AM EST 07/01/2025 2:59 AM EST [facility] - 07/01/2025 4:07 AM EST OPTIMAL INR RANGES FOR PATIENT ON ORAL ANTICOAGULANT THERAPY Prevention of venous thromboembolism INR 2.0 to 3.0 In patients with heart disease: Atrial fibrillation INR 2.0 to 3.0 Valvular heart disease INR 2.0 to 3.0 Tissue heart valves INR 2.0 to 3.0 Mechanical prosthetic valves INR 2.5 to 3.5 Prevention of recurrent HI INR 2.5 to 3.5 Alison Burns MD LAB BLOOD ORDERABLES Final Re sult Performing Organization Address City/[facility]/ZIP Co de Phone Number [facility] [address] [place] [address] * Magnesium, Plasma (07/01/2025 2:44 AM EST) Pathologist [facility] Magnesium, Plasma 2.1 1.9 - 2.4 mg/dL 07/01/2025 3:23 AM EST [facility] Blood Venous blood specimen / Unknown Venipuncture / Unknown 07/01/2025 2:44 AM EST 07/01/2025 2:59 AM EST Alison Burns MD LAB BLOOD ORDERABLES Final Re sult [facility] [address] [place] [address] * (ABNORMAL) Comprehensive Metabolic Panel, Plasma (07/01/2025 2:44 AM EST) Glucose, Plasma 116(H) 74 - 99 mg/dL 07/01/2025 3:23 AM EST [facility] BUN, Plasma 14 7 - 21 mg/dL 07/01/2025 3:23 AM [facility] Creatinine, Plasma 1.06 0.60 - 1.10 mg/dL 07/01/2025 3:23 AM [facility] BUN/Creatinine Ratio 13 07/01/2025 3:23 AM [facility] Sodium, Plasma 133(L) 136 - 145 mmol/L 07/01/2025 3:23 AM [facility] Potassium, Plasma 3.9 3.6 - 4.9 mmol/L 07/01/2025 3:23 AM [facility] Chloride, Plasma 99 97 - 107 mmol/L 07/01/2025 3:23 AM [facility] CO2, Plasma 27 22 - 29 mmol/L 07/01/2025 3:23 AM [facility] Anion Gap 7 6 - 16 mmol/L 07/01/2025 3:23 AM [facility] Total Calcium, Plasma 8.6(L) 8.9 - 10.2 mg/dL 07/01/2025 3:23 AM [facility] Total Protein 5.6(L) 6.3 - 7.9 g/dL 07/01/2025 3:23 AM [facility] Albumin, Plasma 2.8(L) 3.5 - 5.2 g/dL 07/01/2025 3:23 AM [facility] AST, Plasma 62(H) 10 - 35 U/L 07/01/2025 3:23 AM [facility] ALT, Plasma 34 10 - 35 U/L 07/01/2025 3:23 AM [facility] Alkaline Phosphatase, Plasma 153(H) 35 - 104 U/L 07/01/2025 3:23 AM [facility] Total Bilirubin, Plasma 2.3(H) 0.2 - 1.1 mg/dL 07/01/2025 3:23 AM [facility] eGFRcr 62.2 mL/min/1.7 3m*2 07/01/2025 3:23 AM [facility] Comment:Reported eGFRcr in m L/min/1.73m2 is based the CKD-EPI 2020 equation that does not use a race coefficient. Blood Venous blood specimen / Unknown Venipuncture / Unknown 07/01/2025 2:44 AM EST 07/01/2025 2:59 AM EST us Alison Burns MD LAB BLOOD ORDERABLES Final Re sult [facility] [address] [place] [address] * (ABNORMAL) CBC W/O Differential (07/01/2025 2:44 AM EST) WBC Count 4.28 3.70 - 10.30 10*3/uL LAB HEMATOLOGY METHOD 07/01/2025 3:04 AM EST [facility] RBC Count 2.60(L) 3.90 - 5.20 10*6/uL LAB HEMATOLOGY METHOD 07/01/2025 3:04 AM EST [facility] HGB 9.2(L) 11.2 - 15.7 g/dL LAB HEMATOLOGY METHOD 07/01/2025 3:04 AM EST [facility] HCT 27.2(L) 34.0 - 45.0 % LAB HEMATOLOGY METHOD 07/01/2025 3:04 AM EST [facility] Platelet Count 41(L) 155 - 369 10*3/uL LAB HEMATOLOGY METHOD 07/01/2025 3:04 AM EST [facility] MCV 105(H) 79 - 98 fL LAB HEMATOLOGY METHOD 07/01/2025 3:04 AM EST [facility] MCH 35.4(H) 26.0 - 32.0 pg LAB HEMATOLOGY METHOD 07/01/2025 3:04 AM EST [facility] MCHC 33.8 30.7 - 35.5 g/dL LAB HEMATOLOGY METHOD 07/01/2025 3:04 AM EST [facility] RDW 13.6 11.5 - 14.5 % LAB HEMATOLOGY METHOD 07/01/2025 3:04 AM EST [facility] MPV 10.1 8.8 - 12.5 fL LAB HEMATOLOGY METHOD 07/01/2025 3:04 AM EST [facility] nRBC 0.0 <=0.0 per 100 WBCs LAB HEMATOLOGY METHOD 07/01/2025 3:04 AM EST [facility] Blood Venous blood specimen / Unknown Venipuncture / Unknown 07/01/2025 2:44 AM EST 07/01/2025 2:59 AM EST us Alison Burns MD LAB BLOOD ORDERABLES Final Re sult Performing Organization Address City/[facility]/ZIP Co de Phone Number [facility] [address] [place] [address] * (ABNORMAL) POCT glucose meter (06/30/2025 8:25 PM EST) POCT Glucose 137(H) 74 - 99 mg/dL 06/30/2025 8:27 PM EST [facility] Comment:Accuracy of a glucos e result obtained from a capillary whole blood specimen relies upon adequate, non-compromised capillary blood flow. If the capillary glucose result is not consistent with the patient's clinical signs and symptoms, glucose testing should be repeated with either an arterial or venous sample on the glucometer or sent to the main labortory for testing. Comment 06/30/2025 8:27 PM EST [facility] Director Of Nuclear Medicine ID Jemma Miller 025 8:27 PM EST [facility] Device ID [id number] 06/30/2025 8:27 PM EST [facility] Specimen Type POC Capillary 06/30/2025 8:27 PM EST [facility] Blood Capillary blood specimen / Unknown 06/30/2025 8:25 PM EST 06/30/2025 8:27 PM EST Alison Burns MD LAB POINT OF CARE TE ST DOCKED DEVICE UNSOLICITED RESULTS Final Result Performing Organization Address City/[facility]/ZIP Co de Phone Number [facility] [address] [place] [address] * (ABNORMAL) POCT glucose meter (06/30/2025 4:59 PM EST) POCT Glucose 125(H) 74 - 99 mg/dL 06/30/2025 5:02 PM EST [facility] Comment:Accuracy of [...] to the main labortory for testing. Comment 06/30/2025 5:02 PM EST [facility] Director Of Nuclear Medicine ID Betzaida Bernardo 06/30/2025 5:02 PM EST [facility] Device ID [id number] 06/30/2025 5:02 PM EST [facility] Specimen Type POC Capillary 06/30/2025 5:02 PM EST [facility] Blood Capillary blood specimen / Unknown 06/30/2025 4:59 PM EST 06/30/2025 5:02 PM EST Alison Burns MD LAB POINT OF CARE TE ST DOCKED DEVICE UNSOLICITED RESULTS Final Result Performing Organization Address [facility] Center/[facility] Co de Phone Number [facility] [address] [place] [address] * (ABNORMAL) POCT glucose meter (06/30/2025 12:03 PM EST) POCT Glucose 205(H) 74 - 99 mg/dL 06/30/2025 12:05 PM EST [facility] Comment:Accuracy of [...] to the main labortory for testing. Comment 06/30/2025 12:05 PM EST [facility] Director Of Nuclear Medicine ID Betzaida Bernardo 06/30/2025 12:05 PM EST [facility] Device ID [id number] 06/30/2025 12:05 PM EST [facility] Specimen Type POC Capillary 06/30/2025 12:05 PM EST [facility] Blood Capillary blood specimen / Unknown 06/30/2025 12:03 PM EST 06/30/2025 12:05 PM EST Alison Burns MD LAB POINT OF CARE TE ST DOCKED DEVICE UNSOLICITED RESULTS Final Result [facility] [address] [place] [address] * (ABNORMAL) POCT glucose meter (06/30/2025 8:09 AM EST) POCT Glucose 120(H) 74 - 99 mg/dL 06/30/2025 8:25 AM EST [facility] Comment:Accuracy of a glucos e result obtained from a capillary whole blood specimen relies upon adequate, non-compromised capillary blood flow. If the capillary glucose result is not consistent with the patient's clinical signs and symptoms, glucose testing should be repeated with either an arterial or venous sample on the glucometer or sent to the main labortory for testing. Comment 06/30/2025 8:25 AM EST [facility] Director Of Nuclear Medicine ID Betzaida Bernardo 06/30/2025 8:25 AM EST [facility] Device ID [id number] 06/30/2025 8:25 AM EST [facility] Specimen Type POC Capillary 06/30/2025 8:25 AM EST [facility] Blood Capillary blood specimen / Unknown 06/30/2025 8:09 AM EST 06/30/2025 8:25 AM EST Alison Burns MD LAB POINT OF CARE TE ST DOCKED DEVICE UNSOLICITED RESULTS Final Result Performing Organization Address City/State/[facility] Co de Phone Number [facility] [address] [place] [address] * (ABNORMAL) Prothrombin Time/INR (06/30/2025 2:22 AM EST) Prothrombin Time 22.1(H) 12.0 - 14.3 sec 06/30/2025 2:44 AM EST [facility] INR 1.9(H) 0.9 - 1.1 06/30/2025 2:44 AM EST [facility] Blood Venous blood specimen / Unknown Venipuncture / Unknown 06/30/2025 2:22 AM EST 06/30/2025 2:31 AM EST Narrative [facility] - 06/30/2025 2:44 AM EST OPTIMAL INR RANGES FOR PATIENT ON ORAL ANTICOAGULANT THERAPY Prevention of venous thromboembolism INR 2.0 to 3.0 In patients with heart disease: Atrial fibrillation INR 2.0 to 3.0 Valvular heart disease INR 2.0 to 3.0 Tissue heart valves INR 2.0 to 3.0 Mechanical prosthetic valves INR 2.5 to 3.5 Prevention of recurrent HI INR 2.5 to 3.5 Alison Burns MD LAB BLOOD ORDERABLES Final Re sult [facility] [address] [place] [address] * Magnesium, Plasma (06/30/2025 2:22 AM EST) Magnesium, Plasma 2.1 1.9 - 2.4 mg/dL 06/30/2025 3:03 AM EST [facility] Blood Venous blood specimen / Unknown Venipuncture / Unknown 06/30/2025 2:22 AM EST 06/30/2025 2:31 AM EST Alison Burns MD LAB BLOOD ORDERABLES Final Re sult Performing Organization Address City/[facility]/ZIP Co de Phone Number [facility] [address] [place] [address] * (ABNORMAL) Comprehensive Metabolic Panel, Plasma (06/30/2025 2:22 AM EST) Glucose, Plasma 112(H) 74 - 99 mg/dL 06/30/2025 3:03 AM EST [facility] BUN, Plasma 14 7 - 21 mg/dL 06/30/2025 3:03 AM EST [facility] Creatinine, Plasma 1.21(H) 0.60 - 1.10 mg/dL 06/30/2025 3:03 AM EST [facility] BUN/Creatinine Ratio 12 06/30/2025 3:03 AM EST [facility] Sodium, Plasma 134(L) 136 - 145 mmol/L 06/30/2025 3:03 AM EST [facility] Potassium, Plasma 3.9 3.6 - 4.9 mmol/L 06/30/2025 3:03 AM EST [facility] Chloride, Plasma 100 97 - 107 mmol/L 06/30/2025 3:03 AM EST [facility] CO2, Plasma 27 22 - 29 mmol/L 06/30/2025 3:03 AM EST [facility] Anion Gap 7 6 - 16 mmol/L 06/30/2025 3:03 AM EST [facility] Total Calcium, Plasma 8.5(L) 8.9 - 10.2 mg/dL 06/30/2025 3:03 AM EST [facility] Total Protein 5.8(L) 6.3 - 7.9 g/dL 06/30/2025 3:03 AM EST [facility] Albumin, Plasma 2.9(L) 3.5 - 5.2 g/dL 06/30/2025 3:03 AM EST [facility] AST, Plasma 61(H) 10 - 35 U/L 06/30/2025 3:03 AM EST [facility] ALT, Plasma 34 10 - 35 U/L 06/30/2025 3:03 AM EST [facility] Alkaline Phosphatase, Plasma 153(H) 35 - 104 U/L 06/30/2025 3:03 AM EST [facility] Total Bilirubin, Plasma 2.2(H) 0.2 - 1.1 mg/dL 06/30/2025 3:03 AM EST [facility] eGFRcr 53.0 mL/min/1.7 3m*2 06/30/2025 3:03 AM EST [facility] Comment:Reported eGFRcr in m L/min/1.73m2 is based the CKD-EPI 2020 equation that does not use a race coefficient. Blood Venous blood specimen / Unknown Venipuncture / Unknown 06/30/2025 2:22 AM EST 06/30/2025 2:31 AM EST Alison Burns MD LAB BLOOD ORDERABLES Final Re sult [facility] [address] [place] [id number] * (ABNORMAL) CBC W/O Differential (06/30/2025 2:22 AM EST) WBC Count 4.36 3.70 - 10.30 10*3/uL LAB HEMATOLOGY METHOD 06/30/2025 2:34 AM EST [facility] RBC Count 2.56(L) 3.90 - 5.20 10*6/uL LAB HEMATOLOGY METHOD 06/30/2025 2:34 AM EST [facility] HGB 9.1(L) 11.2 - 15.7 g/dL LAB HEMATOLOGY METHOD 06/30/2025 2:34 AM EST [facility] HCT 26.6(L) 34.0 - 45.0 % LAB HEMATOLOGY METHOD 06/30/2025 2:34 AM EST [facility] Platelet Count 36(L) 155 - 369 10*3/uL LAB HEMATOLOGY METHOD 06/30/2025 2:34 AM EST [facility] MCV 104(H) 79 - 98 fL LAB HEMATOLOGY METHOD 06/30/2025 2:34 AM EST [facility] MCH 35.5(H) 26.0 - 32.0 pg LAB HEMATOLOGY METHOD 06/30/2025 2:34 AM EST [facility] MCHC 34.2 30.7 - 35.5 g/dL LAB HEMATOLOGY METHOD 06/30/2025 2:34 AM EST [facility] RDW 13.5 11.5 - 14.5 % LAB HEMATOLOGY METHOD 06/30/2025 2:34 AM EST [facility] MPV 9.9 8.8 - 12.5 fL LAB HEMATOLOGY METHOD 06/30/2025 2:34 AM EST [facility] nRBC 0.0 <=0.0 per 100 WBCs LAB HEMATOLOGY METHOD 06/30/2025 2:34 AM EST [facility] Blood Venous blood specimen / Unknown Venipuncture / Unknown 06/30/2025 2:22 AM EST 06/30/2025 2:31 AM EST Alison Burns MD LAB BLOOD ORDERABLES Final Re sult [facility] [address] [place] [address] * (ABNORMAL) POCT glucose meter (06/29/2025 8:05 PM EST) POCT Glucose 164(H) 74 - 99 mg/dL 06/29/2025 8:06 PM EST [facility] Comment:Accuracy of a glucos e result obtained from a capillary whole blood specimen relies upon adequate, non-compromised capillary blood flow. If the capillary glucose result is not consistent with the patient's clinical signs and symptoms, glucose testing should be repeated with either an arterial or venous sample on the glucometer or sent to the main labortory for testing. Comment 06/29/2025 8:06 PM EST [facility] Director Of Nuclear Medicine ID SandipzSabrina [id number] 8:06 PM EST [facility] Device ID [id number] 06/29/2025 8:06 PM EST [facility] Specimen Type POC Capillary 06/29/2025 8:06 PM EST [facility] Blood Capillary blood specimen / Unknown 06/29/2025 8:05 PM EST 06/29/2025 8:06 PM EST us Sandi Judd MD LAB POINT OF CARE TE ST DOCKED DEVICE UNSOLICITED RESULTS Final Result Performing Organization Address City/[facility]/ZIP Co de Phone Number [facility] [address] [place] [address] * (ABNORMAL) POCT glucose meter (06/29/2025 5:40 PM EST) POCT Glucose 141(H) 74 - 99 mg/dL 06/29/2025 5:42 PM EST [facility] Comment:Accuracy of a glucos e result obtained from a capillary whole blood specimen relies upon adequate, non-compromised capillary blood flow. If the capillary glucose result is not consistent with the patient's clinical signs and symptoms, glucose testing should be repeated with either an arterial or venous sample on the glucometer or sent to the main labortory for testing. Comment 06/29/2025 5:42 PM EST [facility] Director Of Nuclear Medicine ID Les Gordon 5:42 PM EST [facility] Device ID [id number] 06/29/2025 5:42 PM EST [facility] Specimen Type POC Capillary 06/29/2025 5:42 PM EST [facility] Blood Capillary blood specimen / Unknown 06/29/2025 5:40 PM EST 06/29/2025 5:42 PM EST us Alison Burns MD LAB POINT OF CARE TE ST DOCKED DEVICE UNSOLICITED RESULTS Final Result Performing Organization Address City/[facility] Co de Phone Number [facility] [address] [place] [address] * MR Abdomen w and wo IV Contrast (06/29/2025 2:18 PM EST) Anatomical Region Laterality Modality Abdomen Magnetic Resonan ce Impressions 06/29/2025 3:17 PM EST LI-RADS negative. Cirrhosis. Splenomegaly, ascites, and portosystemic collaterals compatible with sequelae of portal hypertension. CRITICAL RESULT: No. COMMUNICATION: Per this written report. By electronically signing this report, I, the attending physician, attest that I have personally reviewed the images/data for the above examination(s) and agree with the final edited report. Drafted by Remy Mckinney MD on 06/29/2025 2:30 PM Final report signed by Ayush Skinner MD on 06/29/2025 3:17 PM Narrative 06/29/2025 3:17 PM EST CLINICAL INDICATION: Liver disease, chronic, tumor screening TECHNIQUE: MR imaging of the abdomen was performed with and without intravenous contrast material using the following sequences: coronal single shot T2 weighted fast spin echo, axial T2 weighted sequences with and without fat saturation, axial dual phase gradient echo, pre and dynamic postcontrast 3-D T1 weighted gradient echo with fat saturation (axial and coronal), and axial diffusion. 9.3 mL of Gadavist was administered. COMPARISON: CT abdomen pelvis performed June 27 2025. Outside facility CT performed on May 23, 2025 and October 24, 2023 FINDINGS: Liver: Nodular contour and parenchymal volume redistribution compatible with cirrhosis. No evidence of steatosis or iron deposition. Heterogeneous enhancement with fibrosis. No suspicious liver lesions. Gallbladder: Surgically absent gallbladder. Bile Duct: Mild dilatation of the common bile duct measuring up to 8 mm in caliber, likely secondary to postcholecystectomy related changes. No intrahepatic duct dilatation. Spleen: Splenomegaly measuring 16.1 cm in the craniocaudal dimension. No suspicious lesions. Adrenal Glands: Bilateral adreniform thickening without suspicious focal nodule. Pancreas: Normal pancreatic parenchymal signal and morphology. No suspicious lesions. Normal caliber pancreatic duct. No divisum. Kidneys: No suspicious mass. No hydronephrosis. Fluid Survey: Moderate to large volume ascites. Small right pleural effusion. Vasculature: Abdominal aorta is normal in caliber. SMA and celiac origins are patent. Hepatic arterial anatomy is standard. IVC is unremarkable. Portal veins and hepatic veins are patent. Portosystemic collateral vessels including perigastric and paraesophageal varices.. Lymph Nodes: No lymphadenopathy. Borderline enlarged portacaval lymph node may be secondary to portal hypertension. Bones: No acute or aggressive osseous lesions. Other: Diffuse body wall edema. Mesenteric edema. Procedure Note Ayush Skinner MD - 06/29/2025 CLINICAL INDICATION: Liver disease, chronic, tumor screening TECHNIQUE: MR imaging of the abdomen was performed with and without intravenouscontrast material using the following sequences: coronal single shot [id number] fast spin echo, axial T2 weighted sequences with and without fatsaturation, axial dual phase gradient echo, pre and dynamic postcontrast3-D T1 weighted gradient echo with fat saturation (axial and coronal), andaxial diffusion. 9.3 mL of Gadavist was administered. COMPARISON: CT abdomen pelvis performed June 27 2025. Outside facility CTperformed on May 23, 2025 and October 24, 2023 FINDINGS: Liver: Nodular contour and parenchymal volume redistribution compatiblewith cirrhosis. No evidence of steatosis or iron deposition. Heterogeneousenhancement with fibrosis. No suspicious liver lesions. Gallbladder: Surgically absent gallbladder. Bile Duct: Mild dilatation of the common bile duct measuring up to 8 mm incaliber, likely secondary to postcholecystectomy related changes. Nointrahepatic duct dilatation. Spleen: Splenomegaly measuring 16.1 cm in the craniocaudal dimension. Nosuspicious lesions. Adrenal Glands: Bilateral adreniform thickening without suspicious focalnodule. Pancreas: Normal pancreatic parenchymal signal and morphology. Nosuspicious lesions. Normal caliber pancreatic duct. No divisum. Kidneys: No suspicious mass. No hydronephrosis. Fluid Survey: Moderate to large volume ascites. Small right pleuraleffusion. Vasculature: Abdominal aorta is normal in caliber. SMA and celiac originsare patent. Hepatic arterial anatomy is standard. IVC is unremarkable.Portal veins and hepatic veins are patent. Portosystemic collateralvessels including perigastric and paraesophageal varices.. Lymph Nodes: No lymphadenopathy. Borderline enlarged portacaval lymph nodemay be secondary to portal hypertension. Bones: No acute or aggressive osseous lesions. Other: Diffuse body wall edema. Mesenteric edema. IMPRESSION: LI-RADS negative. Cirrhosis. Splenomegaly, ascites, and portosystemic collaterals compatible withsequelae of portal hypertension. CRITICAL RESULT: No. COMMUNICATION: Per this written report. By electronically signing this report, I, the attending physician, attestthat I have personally reviewed the images/data for the aboveexamination(s) and agree with the final edited report. Drafted by Remy Mckinney MD on 06/29/2025 2:30 PM Final report signed by Ayush Skinner MD on 06/29/2025 3:17 PM us Jonathan Drummond APRN, DNP IMG MRI PROCEDUR ES Final Result * (ABNORMAL) POCT glucose meter (06/29/2025 11:44 AM EST) POCT Glucose 172(H) 74 - 99 mg/dL 06/29/2025 11:46 AM EST [facility] Comment:Accuracy of a glucos e result obtained from a capillary whole blood specimen relies upon adequate, non-compromised capillary blood flow. If the capillary glucose result is not consistent with the patient's clinical signs and symptoms, glucose testing should be repeated with either an arterial or venous sample on the glucometer or sent to the main labortory for testing. Comment 06/29/2025 11:46 AM EST [facility] Director Of Nuclear Medicine ID Les Gordon 11:46 AM EST [facility] Device ID [id number] 06/29/2025 11:46 AM EST [facility] Specimen Type POC Capillary 06/29/2025 11:46 AM EST [facility] Blood Capillary blood specimen / Unknown 06/29/2025 11:44 AM EST 06/29/2025 11:46 AM EST us Alison Burns MD LAB POINT OF CARE TE ST DOCKED DEVICE UNSOLICITED RESULTS Final Result Performing Organization Address City/State/[facility] de Phone Number [facility] [address] [place] [address] * (ABNORMAL) POCT arterial blood gas gem (06/29/2025 10:39 AM EST) pH, Arterial 7.48(H) 7.35 - 7.45 06/29/2025 10:41 AM EST [facility] pCO2, Arterial 36 35 - 48 mm Hg 06/29/2025 10:41 AM EST [facility] pO2, Arterial 127(H) 83 - 108 mm Hg 06/29/2025 10:41 AM EST [facility] SO2, Arterial 99(H) 94 - 98 % 06/29/2025 10:41 AM [facility] FIO2 21.0 % 06/29/2025 10:41 AM [facility] Base Excess, Arterial 3.2(H) -2 - 3 mmol/L 06/29/2025 10:41 AM [facility] HCO3, Arterial 26.8(H) 22 - 26 mmol/L 06/29/2025 10:41 AM [facility] Total Hemoglobin, Arterial, Whole Blood 9.4(L) 11.2 - 15.7 g/dL 06/29/2025 10:41 AM [facility] Hematocrit, Arterial 28.0(L) 34.0 - 45.0 % 06/29/2025 10:41 AM [facility] Sodium, Arterial 124(L) 136 - 145 mmol/L 06/29/2025 10:41 AM [facility] Potassium, Arterial 4.0 3.6 - 4.9 mmol/L 06/29/2025 10:41 AM [facility] Chloride, Whole Blood 99 97 - 107 mmol/L 06/29/2025 10:41 AM [facility] Glucose, Arterial 207(H) 74 - 99 mg/dL 06/29/2025 10:41 AM [facility] Ionized Calcium, Arterial 4.5(L) 4.6 - 5.1 mg/dL 06/29/2025 10:41 AM [facility] Lactate, Arterial 2.1(H) 0.5 - 1.6 mmol/L 06/29/2025 10:41 AM [facility] Body Temperature 37.0 Celsius 06/29/2025 10:41 AM [facility] pH, Temp Corrected, Arterial 7.48(H) 7.35 - 7.45 06/29/2025 10:41 AM [facility] pCO2, Temp Corrected, Arterial 36 35 - 48 mm Hg 06/29/2025 10:41 AM [facility] pO2, Temp Corrected, Arterial 127(H) 83 - 108 mm Hg 06/29/2025 10:41 AM [facility] Director Of Nuclear Medicine ID Hector Melton 06/29/2025 10:41 AM [facility] Blood, Arterial Whole blood specimen / Unknown 06/29/2025 10:39 AM EST 06/29/2025 10:41 AM EST Alison Burns MD LAB POINT OF CARE TE ST DOCKED DEVICE UNSOLICITED RESULTS Final Result Performing Organization Address City/[facility] Co de Phone Number [facility] [address] [place] [address] * (ABNORMAL) POCT glucose meter (06/29/2025 8:01 AM EST) POCT Glucose 148(H) 74 - 99 mg/dL 06/29/2025 8:04 AM EST [facility] Comment:Accuracy of a glucos e result obtained from a capillary whole blood specimen relies upon adequate, non-compromised capillary blood flow. If the capillary glucose result is not consistent with the patient's clinical signs and symptoms, glucose testing should be repeated with either an arterial or venous sample on the glucometer or sent to the main labortory for testing. Comment 06/29/2025 8:04 AM EST [facility] Director Of Nuclear Medicine ID Les Gordon 8:04 AM EST [facility] Device ID [id number] 06/29/2025 8:04 AM EST [facility] Specimen Type POC Capillary 06/29/2025 8:04 AM EST [facility] Blood Capillary blood specimen / Unknown 06/29/2025 8:01 AM EST 06/29/2025 8:04 AM EST us Alison Burns MD LAB POINT OF CARE TE ST DOCKED DEVICE UNSOLICITED RESULTS Final Result Performing Organization Address City/[facility] de Phone Number [facility] [address] [place] [address] * (ABNORMAL) POCT glucose meter (06/29/2025 6:15 AM EST) POCT Glucose 135(H) 74 - 99 mg/dL 06/29/2025 6:17 AM EST [facility] Comment:Accuracy of [...] to the main labortory for testing. Comment 06/29/2025 6:17 AM EST [facility] Director Of Nuclear Medicine ID Lashonda Larson 06/29/2025 6:17 AM EST [facility] Device ID [id number] 06/29/2025 6:17 AM EST [facility] Specimen Type POC Capillary 06/29/2025 6:17 AM EST [facility] Blood Capillary blood specimen / Unknown 06/29/2025 6:15 AM EST 06/29/2025 6:17 AM EST Alison Burns MD LAB POINT OF CARE TE ST DOCKED DEVICE UNSOLICITED RESULTS Final Result Performing Organization Address City/[facility]/ZIP Co de Phone Number [facility] [address] [place] [address] * (ABNORMAL) Prothrombin Time/INR (06/29/2025 3:39 AM EST) Prothrombin Time 21.6(H) 12.0 - 14.3 sec 06/29/2025 4:09 AM EST [facility] INR 1.8(H) 0.9 - 1.1 06/29/2025 4:09 AM EST [facility] Blood Venous blood specimen / Unknown Venipuncture / Unknown 06/29/2025 3:39 AM EST 06/29/2025 3:56 AM EST Narrative [facility] - 06/29/2025 4:09 AM EST OPTIMAL INR RANGES FOR PATIENT ON ORAL ANTICOAGULANT THERAPY Prevention of venous thromboembolism INR 2.0 to 3.0 In patients with heart disease: Atrial fibrillation INR 2.0 to 3.0 Valvular heart disease INR 2.0 to 3.0 Tissue heart valves INR 2.0 to 3.0 Mechanical prosthetic valves INR 2.5 to 3.5 Prevention of recurrent HI INR 2.5 to 3.5 Alison Burns MD LAB BLOOD ORDERABLES Final Re sult [facility] [address] [place] [address] * Magnesium, Plasma (06/29/2025 3:39 AM EST) Magnesium, Plasma 2.3 1.9 - 2.4 mg/dL 06/29/2025 4:36 AM EST [facility] Blood Venous blood specimen / Unknown Venipuncture / Unknown 06/29/2025 3:39 AM EST 06/29/2025 3:55 AM EST us Alison Burns MD LAB BLOOD ORDERABLES Final Re sult [facility] [address] [place] [address] * (ABNORMAL) Comprehensive Metabolic Panel, Plasma (06/29/2025 3:39 AM EST) Glucose, Plasma 138(H) 74 - 99 mg/dL 06/29/2025 4:36 AM EST [facility] BUN, Plasma 17 7 - 21 mg/dL 06/29/2025 4:36 AM EST [facility] Creatinine, Plasma 1.32(H) 0.60 - 1.10 mg/dL 06/29/2025 4:36 AM EST [facility] BUN/Creatinine Ratio 13 06/29/2025 4:36 AM EST [facility] Sodium, Plasma 133(L) 136 - 145 mmol/L 06/29/2025 4:36 AM EST [facility] Potassium, Plasma 4.0 3.6 - 4.9 mmol/L 06/29/2025 4:36 AM EST [facility] Chloride, Plasma 99 97 - 107 mmol/L 06/29/2025 4:36 AM EST [facility] CO2, Plasma 28 22 - 29 mmol/L 06/29/2025 4:36 AM EST [facility] Anion Gap 6 6 - 16 mmol/L 06/29/2025 4:36 AM EST [facility] Total Calcium, Plasma 8.6(L) 8.9 - 10.2 mg/dL 06/29/2025 4:36 AM EST [facility] Total Protein 5.6(L) 6.3 - 7.9 g/dL 06/29/2025 4:36 AM EST [facility] Albumin, Plasma 2.9(L) 3.5 - 5.2 g/dL 06/29/2025 4:36 AM EST [facility] AST, Plasma 58(H) 10 - 35 U/L 06/29/2025 4:36 AM EST [facility] ALT, Plasma 34 10 - 35 U/L 06/29/2025 4:36 AM EST [facility] Alkaline Phosphatase, Plasma 166(H) 35 - 104 U/L 06/29/2025 4:36 AM EST [facility] Total Bilirubin, Plasma 2.3(H) 0.2 - 1.1 mg/dL 06/29/2025 4:36 AM EST [facility] eGFRcr 47.8 mL/min/1.7 3m*2 06/29/2025 4:36 AM EST [facility] Comment:Reported eGFRcr in m L/min/1.73m2 is based the CKD-EPI 2020 equation that does not use a race coefficient. Blood Venous blood specimen / Unknown Venipuncture / Unknown 06/29/2025 3:39 AM EST 06/29/2025 3:55 AM EST us Alison Burns MD LAB BLOOD ORDERABLES Final Re sult Performing Organization Address City/State/[facility] Co de Phone Number [facility] [address] [place] [address] * (ABNORMAL) CBC W/O Differential (06/29/2025 3:39 AM EST) WBC Count 3.70 3.70 - 10.30 10*3/uL LAB HEMATOLOGY METHOD 06/29/2025 3:59 AM EST [facility] RBC Count 2.54(L) 3.90 - 5.20 10*6/uL LAB HEMATOLOGY METHOD 06/29/2025 3:59 AM EST [facility] HGB 9.0(L) 11.2 - 15.7 g/dL LAB HEMATOLOGY METHOD 06/29/2025 3:59 AM EST [facility] HCT 26.3(L) 34.0 - 45.0 % LAB HEMATOLOGY METHOD 06/29/2025 3:59 AM EST [facility] Platelet Count 34(L) 155 - 369 10*3/uL LAB HEMATOLOGY METHOD 06/29/2025 3:59 AM EST [facility] MCV 104(H) 79 - 98 fL LAB HEMATOLOGY METHOD 06/29/2025 3:59 AM EST [facility] MCH 35.4(H) 26.0 - 32.0 pg LAB HEMATOLOGY METHOD 06/29/2025 3:59 AM EST [facility] MCHC 34.2 30.7 - 35.5 g/dL LAB HEMATOLOGY METHOD 06/29/2025 3:59 AM EST [facility] RDW 13.8 11.5 - 14.5 % LAB HEMATOLOGY METHOD 06/29/2025 3:59 AM EST [facility] MPV 10.5 8.8 - 12.5 fL LAB HEMATOLOGY METHOD 06/29/2025 3:59 AM EST [facility] nRBC 0.0 <=0.0 per 100 WBCs LAB HEMATOLOGY METHOD 06/29/2025 3:59 AM EST [facility] Blood Venous blood specimen / Unknown Venipuncture / Unknown 06/29/2025 3:39 AM EST 06/29/2025 3:56 AM EST us Alison Burns MD LAB BLOOD ORDERABLES Final Re sult [facility] [address] [place] [address] * (ABNORMAL) POCT glucose meter (06/29/2025 12:26 AM EST) POCT Glucose 140(H) 74 - 99 mg/dL 06/29/2025 12:28 AM EST [facility] Comment:Accuracy of a glucos e result obtained from a capillary whole blood specimen relies upon adequate, non-compromised capillary blood flow. If the capillary glucose result is not consistent with the patient's clinical signs and symptoms, glucose testing should be repeated with either an arterial or venous sample on the glucometer or sent to the main labortory for testing. Comment 06/29/2025 12:28 AM EST [facility] Director Of Nuclear Medicine ID Lashonda Larson 06/29/2025 12:28 AM EST [facility] Device ID [id number] 06/29/2025 12:28 AM EST [facility] Specimen Type POC Capillary 06/29/2025 12:28 AM EST [facility] Blood Capillary blood specimen / Unknown 06/29/2025 12:26 AM EST 06/29/2025 12:28 AM EST us Alison Burns MD LAB POINT OF CARE TE ST DOCKED DEVICE UNSOLICITED RESULTS Final Result Performing Organization Address City/[facility]/ZIP Co de Phone Number [facility] [address] [place] [address] * (ABNORMAL) POCT glucose meter (06/28/2025 8:51 PM EST) POCT Glucose 123(H) 74 - 99 mg/dL 06/28/2025 8:53 PM EST [facility] Comment:Accuracy of [...] to the main labortory for testing. Comment 06/28/2025 8:53 PM EST [facility] Director Of Nuclear Medicine ID Liane Denia 06/28/2025 8:53 PM EST [facility] Device ID [id number] 06/28/2025 8:53 PM EST [facility] Specimen Type POC Capillary 06/28/2025 8:53 PM EST [facility] Blood Capillary blood specimen / Unknown 06/28/2025 8:51 PM EST 06/28/2025 8:53 PM EST Result [facility] Alison Burns MD LAB POINT OF CARE TE ST DOCKED DEVICE UNSOLICITED RESULTS Final Result Performing Organization Address City/[facility] Co de Phone Number [facility] [address] [place] [address] * (ABNORMAL) POCT glucose meter (06/28/2025 4:29 PM EST) POCT Glucose 177(H) 74 - 99 mg/dL 06/28/2025 4:31 PM EST [facility] Comment:Accuracy of [...] to the main labortory for testing. Comment 06/28/2025 4:31 PM EST [facility] Director Of Nuclear Medicine ID Nuria Lee 06/28/2025 4:31 PM EST [facility] Device ID [id number] 06/28/2025 4:31 PM EST [facility] Specimen Type POC Capillary 06/28/2025 4:31 PM EST [facility] Blood Capillary blood specimen / Unknown 06/28/2025 4:29 PM EST 06/28/2025 4:31 PM EST Alison Burns MD LAB POINT OF CARE TE ST DOCKED DEVICE UNSOLICITED RESULTS Final Result Performing Organization Address City/[facility] Co de Phone Number [facility] [address] [place] [address] * (ABNORMAL) POCT glucose meter (06/28/2025 11:16 AM EST) Pathologist [facility] POCT Glucose 132(H) 74 - 99 mg/dL 06/28/2025 11:17 AM EST [facility] Comment:Accuracy of [...] to the main labortory for testing. Comment 06/28/2025 11:17 AM EST [facility] Director Of Nuclear Medicine ID Nuria Lee 06/28/2025 11:17 AM EST [facility] Device ID [id number] 06/28/2025 11:17 AM EST [facility] Specimen Type POC Capillary 06/28/2025 11:17 AM EST [facility] Blood Capillary blood specimen / Unknown 06/28/2025 11:16 AM EST 06/28/2025 11:17 AM EST us Alison Burns MD LAB POINT OF CARE TE ST DOCKED DEVICE UNSOLICITED RESULTS Final Result Performing Organization Address City/[facility] Co de Phone Number [facility] [address] [place] [address] * (ABNORMAL) POCT arterial blood gas gem (06/28/2025 8:26 AM EST) pH, Arterial 7.51(H) 7.35 - 7.45 06/28/2025 8:29 AM [facility] pCO2, Arterial 40 35 - 48 mm Hg 06/28/2025 8:29 AM [facility] pO2, Arterial 59(LL) 83 - 108 mm Hg 06/28/2025 8:29 AM [facility] SO2, Arterial 91(L) 94 - 98 % 06/28/2025 8:29 AM [facility] FIO2 21.0 % 06/28/2025 8:29 AM [facility] Base Excess, Arterial 8.2(H) -2 - 3 mmol/L 06/28/2025 8:29 AM [facility] HCO3, Arterial 31.9(H) 22 - 26 mmol/L 06/28/2025 8:29 AM [facility] Total Hemoglobin, Arterial, Whole Blood 9.0(L) 11.2 - 15.7 g/dL 06/28/2025 8:29 AM [facility] Hematocrit, Arterial 27.0(L) 34.0 - 45.0 % 06/28/2025 8:29 AM [facility] Sodium, Arterial 126(L) 136 - 145 mmol/L 06/28/2025 8:29 AM [facility] Potassium, Arterial 4.2 3.6 - 4.9 mmol/L 06/28/2025 8:29 AM [facility] Chloride, Whole Blood 99 97 - 107 mmol/L 06/28/2025 8:29 AM [facility] Glucose, Arterial 125(H) 74 - 99 mg/dL 06/28/2025 8:29 AM [facility] Ionized Calcium, Arterial 4.7 4.6 - 5.1 mg/dL 06/28/2025 8:29 AM [facility] Lactate, Arterial 1.7(H) 0.5 - 1.6 mmol/L 06/28/2025 8:29 AM [facility] Body Temperature 37.0 Celsius 06/28/2025 8:29 AM [facility] pH, Temp Corrected, Arterial 7.51(H) 7.35 - 7.45 06/28/2025 8:29 AM [facility] pCO2, Temp Corrected, Arterial 40 35 - 48 mm Hg 06/28/2025 8:29 AM [facility] pO2, Temp Corrected, Arterial 59(LL) 83 - 108 mm Hg 06/28/2025 8:29 AM EST [facility] Director Of Nuclear Medicine ID Avis De La Vega 06/28/2025 8:29 AM EST [facility] Acknowledged, Notified By KARLI OLIVIA 06/28/2025 8:29 AM EST [facility] Critical Notify Time 827 06/28/2025 8:29 AM EST [facility] Critical Readback Y 06/28/2025 8:29 AM EST [facility] Blood, Arterial Whole blood specimen / Unknown 06/28/2025 8:26 AM EST 06/28/2025 8:29 AM EST us Alison Burns MD LAB POINT OF CARE TE ST DOCKED DEVICE UNSOLICITED RESULTS Final Result Performing Organization Address City/[facility] Co de Phone Number [facility] [address] [place] [address] * (ABNORMAL) POCT glucose meter (06/28/2025 7:49 AM EST) POCT Glucose 134(H) 74 - 99 mg/dL 06/28/2025 7:50 AM EST [facility] Comment:Accuracy of a glucos e result obtained from a capillary whole blood specimen relies upon adequate, non-compromised capillary blood flow. If the capillary glucose result is not consistent with the patient's clinical signs and symptoms, glucose testing should be repeated with either an arterial or venous sample on the glucometer or sent to the main labortory for testing. Comment 06/28/2025 7:50 AM EST [facility] Director Of Nuclear Medicine ID Nuria Lee 06/28/2025 7:50 AM EST [facility] Device ID [id number] 06/28/2025 7:50 AM EST [facility] Specimen Type POC Capillary 06/28/2025 7:50 AM EST [facility] Blood Capillary blood specimen / Unknown 06/28/2025 7:49 AM EST 06/28/2025 7:50 AM EST us Sandi Judd MD LAB POINT OF CARE TE ST DOCKED DEVICE UNSOLICITED RESULTS Final Result Performing Organization Address City/[facility]/ZIP Co de Phone Number [facility] [address] [place] [address] * (ABNORMAL) Prothrombin Time/INR (06/28/2025 6:15 AM EST) Prothrombin Time 22.1(H) 12.0 - 14.3 sec 06/28/2025 6:37 AM EST [facility] INR 1.9(H) 0.9 - 1.1 06/28/2025 6:37 AM EST [facility] Blood Venous blood specimen / Unknown Venipuncture / Unknown 06/28/2025 6:15 AM EST 06/28/2025 6:23 AM EST Narrative [facility] - 06/28/2025 6:37 AM EST OPTIMAL INR RANGES FOR PATIENT ON ORAL ANTICOAGULANT THERAPY Prevention of venous thromboembolism INR 2.0 to 3.0 In patients with heart disease: Atrial fibrillation INR 2.0 to 3.0 Valvular heart disease INR 2.0 to 3.0 Tissue heart valves INR 2.0 to 3.0 Mechanical prosthetic valves INR 2.5 to 3.5 Prevention of recurrent HI INR 2.5 to 3.5 us Alison Burns MD LAB BLOOD ORDERABLES Final Re sult [facility] [address] [place] [address] * Magnesium, Plasma (06/28/2025 6:15 AM EST) Magnesium, Plasma 2.2 1.9 - 2.4 mg/dL 06/28/2025 7:21 AM EST [facility] Blood Venous blood specimen / Unknown Venipuncture / Unknown 06/28/2025 6:15 AM EST 06/28/2025 6:23 AM EST Alison Burns MD LAB BLOOD ORDERABLES Final Re sult [facility] [address] [place] [address] * (ABNORMAL) Comprehensive Metabolic Panel, Plasma (06/28/2025 6:15 AM EST) Glucose, Plasma 121(H) 74 - 99 mg/dL 06/28/2025 7:30 AM [facility] BUN, Plasma 19 7 - 21 mg/dL 06/28/2025 7:30 AM [facility] Creatinine, Plasma 1.48(H) 0.60 - 1.10 mg/dL 06/28/2025 7:30 AM [facility] BUN/Creatinine Ratio 13 06/28/2025 7:30 AM [facility] Sodium, Plasma 135(L) 136 - 145 mmol/L 06/28/2025 7:30 AM [facility] Potassium, Plasma 4.3 3.6 - 4.9 mmol/L 06/28/2025 7:30 AM [facility] Chloride, Plasma 99 97 - 107 mmol/L 06/28/2025 7:30 AM [facility] CO2, Plasma 30(H) 22 - 29 mmol/L 06/28/2025 7:30 AM [facility] Anion Gap 6 6 - 16 mmol/L 06/28/2025 7:30 AM [facility] Total Calcium, Plasma 8.9 8.9 - 10.2 mg/dL 06/28/2025 7:30 AM [facility] Total Protein 5.7(L) 6.3 - 7.9 g/dL 06/28/2025 7:30 AM [facility] Albumin, Plasma 2.9(L) 3.5 - 5.2 g/dL 06/28/2025 7:30 AM [facility] AST, Plasma 60(H) 10 - 35 U/L 06/28/2025 7:30 AM [facility] ALT, Plasma 37(H) 10 - 35 U/L 06/28/2025 7:30 AM [facility] Alkaline Phosphatase, Plasma 156(H) 35 - 104 U/L 06/28/2025 7:30 AM [facility] Total Bilirubin, Plasma 2.6(H) 0.2 - 1.1 mg/dL 06/28/2025 7:30 AM [facility] eGFRcr 41.6 mL/min/1.7 3m*2 06/28/2025 7:30 AM [facility] Comment:Reported eGFRcr in m L/min/1.73m2 is based the CKD-EPI 2020 equation that does not use a race coefficient. Blood Venous blood specimen / Unknown Venipuncture / Unknown 06/28/2025 6:15 AM EST 06/28/2025 6:23 AM EST us Alison Burns MD LAB BLOOD ORDERABLES Final Re sult [facility] [address] [place] [address] * (ABNORMAL) CBC W/O Differential (06/28/2025 6:15 AM EST) WBC Count 4.39 3.70 - 10.30 10*3/uL LAB HEMATOLOGY METHOD 06/28/2025 6:25 AM EST [facility] RBC Count 2.79(L) 3.90 - 5.20 10*6/uL LAB HEMATOLOGY METHOD 06/28/2025 6:25 AM EST [facility] HGB 9.9(L) 11.2 - 15.7 g/dL LAB HEMATOLOGY METHOD 06/28/2025 6:25 AM EST [facility] HCT 28.6(L) 34.0 - 45.0 % LAB HEMATOLOGY METHOD 06/28/2025 6:25 AM EST [facility] Platelet Count 39(L) 155 - 369 10*3/uL LAB HEMATOLOGY METHOD 06/28/2025 6:25 AM EST [facility] MCV 103(H) 79 - 98 fL LAB HEMATOLOGY METHOD 06/28/2025 6:25 AM EST [facility] MCH 35.5(H) 26.0 - 32.0 pg LAB HEMATOLOGY METHOD 06/28/2025 6:25 AM EST [facility] MCHC 34.6 30.7 - 35.5 g/dL LAB HEMATOLOGY METHOD 06/28/2025 6:25 AM EST [facility] RDW 13.7 11.5 - 14.5 % LAB HEMATOLOGY METHOD 06/28/2025 6:25 AM EST [facility] MPV 9.9 8.8 - 12.5 fL LAB HEMATOLOGY METHOD 06/28/2025 6:25 AM EST [facility] nRBC 0.0 <=0.0 per 100 WBCs LAB HEMATOLOGY METHOD 06/28/2025 6:25 AM EST [facility] Blood Venous blood specimen / Unknown Venipuncture / Unknown 06/28/2025 6:15 AM EST 06/28/2025 6:23 AM EST Alison Burns MD LAB BLOOD ORDERABLES Final Re sult Performing Organization Address City/[facility]/ZIP Co de Phone Number [facility] [address] [place] [address] * Lactate, venous (06/27/2025 9:32 PM EST) Lactate, Venous, Whole Blood 2.2 0.5 - 2.2 mmol/L LAB HEMATOLOGY METHOD 06/27/2025 9:42 PM EST [facility] Blood Venous blood specimen / Unknown Venipuncture / Unknown 06/27/2025 9:32 PM EST 06/27/2025 9:40 PM EST Sandi Judd MD LAB BLOOD ORDERABLES Final Re sult Performing Organization Address City/[facility] Co de Phone Number [facility] [address] [place] [address] * (ABNORMAL) POCT glucose meter (06/27/2025 8:58 PM EST) POCT Glucose 152(H) 74 - 99 mg/dL 06/27/2025 8:59 PM EST [facility] Comment:Accuracy of a glucos e result obtained from a capillary whole blood specimen relies upon adequate, non-compromised capillary blood flow. If the capillary glucose result is not consistent with the patient's clinical signs and symptoms, glucose testing should be repeated with either an arterial or venous sample on the glucometer or sent to the main labortory for testing. Comment 06/27/2025 8:59 PM EST [facility] Director Of Nuclear Medicine ID Danelle Palomo 025 8:59 PM EST [facility] Device ID [id number] 06/27/2025 8:59 PM EST [facility] Specimen Type POC Capillary 06/27/2025 8:59 PM EST [facility] Blood Capillary blood specimen / Unknown 06/27/2025 8:58 PM EST 06/27/2025 8:59 PM EST Sandi Judd MD LAB POINT OF CARE TE ST DOCKED DEVICE UNSOLICITED RESULTS Final Result [facility] [address] [place] [address] * CT Abdomen Pelvis wo IV Contrast (06/27/2025 4:44 PM EST) Anatomical Region Laterality Modality Abdomen, Pelvis Computed Tomogra phy Impressions 06/27/2025 5:12 PM EST Redemonstrated cirrhotic morphology with sequela of portal hypertension including splenomegaly. Interval moderate volume ascites and significant mesenteric edema secondary to portal hypertension. Moderate pancolonic stool burden. Mild bowel wall thickening of the sigmoid colon with questionable intramural gas concern for stercoral colitis. Small right pleural effusion. CRITICAL RESULT: No. COMMUNICATION: Per this written report. Drafted by Iris Santana MD on 06/27/2025 5:04 PM Final report signed by Iris Santana MD on 06/27/2025 5:12 PM Narrative 06/27/2025 5:12 PM EST CLINICAL INDICATION: LUQ and epigastric abdominal pain, hx of cirrhosis and decompensation TECHNIQUE: Imaging of the abdomen and pelvis was performed from lung bases through pubic symphysis, using spiral technique, without administration of IV contrast. Reformatted images in the coronal and sagittal planes were generated from the axial data set to facilitate diagnostic accuracy. Total DLP (Dose-Length Product): 700.02 mGy.cm. Please note: The reported value represents the total of one or more individual components during the CT acquisition on this date and at this time, and as such, the same value may appear in more than one CT report depending on the interpreting/reporting physicians. COMPARISON: October 24, 2023 FINDINGS: Lack of IV contrast limits evaluation of abdominal and pelvic organs. Lung Bases: Small right pleural effusion. Liver/Gallbladder/Biliary System: Cirrhotic morphology of liver. Gallbladder surgically absent. No intra or extrahepatic ductal dilatation. Spleen: Borderline splenomegaly. Pancreas: The pancreas is normal. Adrenals: The adrenals are morphologically unremarkable. Kidneys: The kidneys are normal. Punctate stone in the left lower pole. No hydronephrosis. Bowel/Mesentery: Intraluminal contrast within the stomach. The small bowel loops are not dilated. Moderate pancolonic stool burden. Mild thickening of the splenic flexure with focal intramural gas concern for sacral colitis (series 3 image 99). The appendix is not visualized. No pneumoperitoneum. Lary congested mesentery. No intra-abdominal fluid collections. Vessels/Lymph Nodes: Atherosclerosis without aneurysm. No lymphadenopathy within the abdomen or pelvis. Fluid Survey: Moderate volume ascites. Pelvis: Unremarkable urinary bladder. No pelvic mass. Body Wall: Anasarca. Bones: No acute fracture. Procedure Note Iris Santana MD - 06/27/2025 CLINICAL INDICATION: LUQ and epigastric abdominal pain, hx of cirrhosis and decompensation TECHNIQUE: Imaging of the abdomen and pelvis was performed from lung bases throughpubic symphysis, using spiral technique, without administration of IVcontrast. Reformatted images in the coronal and sagittal planes weregenerated from the axial data set to facilitate diagnostic accuracy. Total DLP (Dose-Length Product): 700.02 mGy.cm. Please note: The reportedvalue represents the total of one or more individual components during theCT acquisition on this date and at this time, and as such, the same valuemay appear in more than one CT report depending on theinterpreting/reporting physicians. COMPARISON: October 24, 2023 FINDINGS: Lack of IV contrast limits evaluation of abdominal and pelvic organs. Lung Bases: Small right pleural effusion. Liver/Gallbladder/Biliary System: Cirrhotic morphology of liver.Gallbladder surgically absent. No intra or extrahepatic ductaldilatation. Spleen: Borderline splenomegaly. Pancreas: The pancreas is normal. Adrenals: The adrenals are morphologically unremarkable. Kidneys: The kidneys are normal. Punctate stone in the left lower pole. Nohydronephrosis. Bowel/Mesentery: Intraluminal contrast within the stomach. The small bowelloops are not dilated. Moderate pancolonic stool burden. Mild thickeningof the splenic flexure with focal intramural gas concern for sacralcolitis (series 3 image 99). The appendix is not visualized. Nopneumoperitoneum. Lary congested mesentery. No intra- abdominal fluidcollections. Vessels/Lymph Nodes: Atherosclerosis without aneurysm. No lymphadenopathywithin the abdomen or pelvis. Fluid Survey: Moderate volume ascites. Pelvis: Unremarkable urinary bladder. No pelvic mass. Body Wall: Anasarca. Bones: No acute fracture. IMPRESSION: Redemonstrated cirrhotic morphology with sequela of portal hypertensionincluding splenomegaly. Interval moderate volume ascites and significant mesenteric edemasecondary to portal hypertension. Moderate pancolonic stool burden. Mild bowel wall thickening of thesigmoid colon with questionable intramural gas concern for stercoralcolitis. Small right pleural effusion. CRITICAL RESULT: No. COMMUNICATION: Per this written report. Drafted by Iris Santana MD on 06/27/2025 5:04 PM Final report signed by Iris Santana MD on 06/27/2025 5:12 PM Alison Burns MD IMG CT PROCEDURES Final Resul t * (ABNORMAL) POCT glucose meter (06/27/2025 4:42 PM EST) POCT Glucose 106(H) 74 - 99 mg/dL 06/27/2025 4:44 PM EST [facility] Comment:Accuracy of [...] to the main labortory for testing. Comment 06/27/2025 4:44 PM EST [facility] Director Of Nuclear Medicine ID Nuria Lee 06/27/2025 4:44 PM EST [facility] Device ID [id number] 06/27/2025 4:44 PM EST [facility] Specimen Type POC Capillary 06/27/2025 4:44 PM EST [facility] Blood Capillary blood specimen / Unknown 06/27/2025 4:42 PM EST 06/27/2025 4:44 PM EST Alison Burns MD LAB POINT OF CARE TE ST DOCKED DEVICE UNSOLICITED RESULTS Final Result [facility] [address] [place] [address] * US Abdomen Doppler Limited (06/27/2025 4:26 PM EST) Anatomical Region Laterality Modality Abdomen Ultrasound Impressions 06/27/2025 5:44 PM EST Grossly patent portal vein with antegrade flow. CRITICAL RESULT: No. COMMUNICATION: Per this written report. Drafted by Iris Santana MD on 06/27/2025 5:41 PM Final report signed by Iris Santana MD on 06/27/2025 5:44 PM Narrative 06/27/2025 5:44 PM EST CLINICAL INDICATION: PVT rule out TECHNIQUE: Grayscale and Doppler images of the portal vein. COMPARISON: Same day CT, May 25, 2025 FINDINGS: Liver: Cirrhotic morphology. Perihepatic ascites. Main portal vein: Portal vein measures 1 cm in diameter with antegrade flow. Flow velocities measure up to 28.5 cm/s. Possible artifacts seen in image 5 and 18. Procedure Note Iris Santana MD - 06/27/2025 CLINICAL INDICATION: PVT rule out TECHNIQUE: Grayscale and Doppler images of the portal vein. COMPARISON: Same day CT, May 25, 2025 FINDINGS: Liver: Cirrhotic morphology. Perihepatic ascites. Main portal vein: Portal vein measures 1 cm in diameter with antegradeflow. Flow velocities measure up to 28.5 cm/s. Possible artifacts seen inimage 5 and 18. IMPRESSION: Grossly patent portal vein with antegrade flow. CRITICAL RESULT: No. COMMUNICATION: Per this written report. Drafted by Iris Santana MD on 06/27/2025 5:41 PM Final report signed by Iris Santana MD on 06/27/2025 5:44 PM Alison Burns MD [facility] [place] PROCEDURES Final Resul t * (ABNORMAL) POCT glucose meter (06/27/2025 11:10 AM EST) POCT Glucose 164(H) 74 - 99 mg/dL 06/27/2025 11:12 AM EST [facility] Comment:Accuracy of a glucos e result obtained from a capillary whole blood specimen relies upon adequate, non-compromised capillary blood flow. If the capillary glucose result is not consistent with the patient's clinical signs and symptoms, glucose testing should be repeated with either an arterial or venous sample on the glucometer or sent to the main labortory for testing. Comment 06/27/2025 11:12 AM EST [facility] Director Of Nuclear Medicine ANMOL Nuria Lee 06/27/2025 11:12 AM EST [facility] Device ID [id number] 06/27/2025 11:12 AM EST [facility] Specimen Type POC Capillary 06/27/2025 11:12 AM EST [facility] Blood Capillary blood specimen / Unknown 06/27/2025 11:10 AM EST 06/27/2025 11:12 AM EST Alison Burns MD LAB POINT OF CARE TE ST DOCKED DEVICE UNSOLICITED RESULTS Final Result Performing Organization Address City/[facility]/ZIP Co de Phone Number [facility] [address] [place] [address] * (ABNORMAL) N-Terminal Probnp (06/27/2025 8:51 AM EST) N-Terminal, PROBNP, Plasma 2,231(H) 0 - 899 pg/mL 06/27/2025 1:30 PM EST [facility] Blood Venous blood specimen / Unknown Venipuncture / Unknown 06/27/2025 8:51 AM EST 06/27/2025 9:07 AM EST us Alison Burns MD LAB BLOOD ORDERABLES Final Re sult Performing Organization Address [facility] Co de Phone Number [facility] [address] [place] [address] * Magnesium, Plasma (06/27/2025 8:51 AM EST) Magnesium, Plasma 2.1 1.9 - 2.4 mg/dL 06/27/2025 11:37 AM EST [facility] Blood Venous blood specimen / Unknown Venipuncture / Unknown 06/27/2025 8:51 AM EST 06/27/2025 9:07 AM EST us Alison Burns MD LAB BLOOD ORDERABLES Final Re sult Performing Organization Address City/[facility] Co de Phone Number [facility] [address] [place] [address] * (ABNORMAL) Comprehensive metabolic panel (06/27/2025 8:51 AM EST) Glucose, Plasma 164(H) 74 - 99 mg/dL 06/27/2025 9:36 AM EST [facility] BUN, Plasma 22(H) 7 - 21 mg/dL 06/27/2025 9:36 AM [facility] Creatinine, Plasma 1.43(H) 0.60 - 1.10 mg/dL 06/27/2025 9:36 AM EST [facility] BUN/Creatinine Ratio 15 06/27/2025 9:36 AM EST [facility] Sodium, Plasma 133(L) 136 - 145 mmol/L 06/27/2025 9:36 AM [facility] Potassium, Plasma 4.5 3.6 - 4.9 mmol/L 06/27/2025 9:36 AM [facility] Chloride, Plasma 96(L) 97 - 107 mmol/L 06/27/2025 9:36 AM [facility] CO2, Plasma 30(H) 22 - 29 mmol/L 06/27/2025 9:36 AM [facility] Anion Gap 7 6 - 16 mmol/L 06/27/2025 9:36 AM [facility] Total Calcium, Plasma 9.0 8.9 - 10.2 mg/dL 06/27/2025 9:36 AM [facility] Total Protein 5.9(L) 6.3 - 7.9 g/dL 06/27/2025 9:36 AM [facility] Albumin, Plasma 3.0(L) 3.5 - 5.2 g/dL 06/27/2025 9:36 AM [facility] AST, Plasma 61(H) 10 - 35 U/L 06/27/2025 9:36 AM [facility] ALT, Plasma 37(H) 10 - 35 U/L 06/27/2025 9:36 AM [facility] Alkaline Phosphatase, Plasma 211(H) 35 - 104 U/L 06/27/2025 9:36 AM [facility] Total Bilirubin, Plasma 2.1(H) 0.2 - 1.1 mg/dL 06/27/2025 9:36 AM [facility] eGFRcr 43.4 mL/min/1.7 3m*2 06/27/2025 9:36 AM [facility] Comment:Reported eGFRcr in m L/min/1.73m2 is based the CKD-EPI 2020 equation that does not use a race coefficient. Blood Venous blood specimen / Unknown Venipuncture / Unknown 06/27/2025 8:51 AM EST 06/27/2025 9:07 AM EST Alison Burns MD LAB BLOOD ORDERABLES Final Re sult Performing Organization Address City/[facility]/ZIP Co de Phone Number [facility]ALTH[facility]ARE [facility] [address] [place] [address] * (ABNORMAL) POCT glucose meter (06/27/2025 7:25 AM EST) POCT Glucose 118(H) 74 - 99 mg/dL 06/27/2025 7:27 AM EST [facility] Comment:Accuracy of a glucos e result obtained from a capillary whole blood specimen relies upon adequate, non-compromised capillary blood flow. If the capillary glucose result is not consistent with the patient's clinical signs and symptoms, glucose testing should be repeated with either an arterial or venous sample on the glucometer or sent to the main labortory for testing. Comment 06/27/2025 7:27 AM EST [facility] Director Of Nuclear Medicine ID Nuria Lee 06/27/2025 7:27 AM EST [facility] Device ID [id number] 06/27/2025 7:27 AM EST [facility] Specimen Type POC Capillary 06/27/2025 7:27 AM EST [facility] Blood Capillary blood specimen / Unknown 06/27/2025 7:25 AM EST 06/27/2025 7:27 AM EST Alison Burns MD LAB POINT OF CARE TE ST DOCKED DEVICE UNSOLICITED RESULTS Final Result Performing Organization Address City/[facility]/ZIP Co de Phone Number [facility] [address] [place] [address] * (ABNORMAL) POCT glucose meter (06/27/2025 4:56 AM EST) POCT Glucose 136(H) 74 - 99 mg/dL 06/27/2025 4:58 AM EST [facility] Comment:Accuracy of [...] to the main labortory for testing. Comment 06/27/2025 4:58 AM EST [facility] Director Of Nuclear Medicine ID Jemma Miller 025 4:58 AM EST [facility] Device ID [id number] 06/27/2025 4:58 AM EST [facility] Specimen Type POC Capillary 06/27/2025 4:58 AM EST [facility] Blood Capillary blood specimen / Unknown 06/27/2025 4:56 AM EST 06/27/2025 4:58 AM EST us Alison Burns MD LAB POINT OF CARE TE ST DOCKED DEVICE UNSOLICITED RESULTS Final Result Performing Organization Address [facility] Co de Phone Number [facility] [address] [place] [address] * (ABNORMAL) Prothrombin Time/INR (06/27/2025 3:04 AM EST) Pathologist [facility] Prothrombin Time 21.7(H) 12.0 - 14.3 sec 06/27/2025 4:08 AM EST [facility] INR 1.8(H) 0.9 - 1.1 06/27/2025 4:08 AM EST [facility] Blood Venous blood specimen / Unknown Venipuncture / Unknown 06/27/2025 3:04 AM EST 06/27/2025 3:56 AM EST Narrative [facility]ARE LAB - 06/27/2025 4:08 AM EST OPTIMAL INR RANGES FOR PATIENT ON ORAL ANTICOAGULANT THERAPY Prevention of venous thromboembolism INR 2.0 to 3.0 In patients with heart disease: Atrial fibrillation INR 2.0 to 3.0 Valvular heart disease INR 2.0 to 3.0 Tissue heart valves INR 2.0 to 3.0 Mechanical prosthetic valves INR 2.5 to 3.5 Prevention of recurrent HI INR 2.5 to 3.5 us Alison Burns MD LAB BLOOD ORDERABLES Final Re sult Performing Organization Address City/[facility]/ZIP Co de Phone Number [facility] [address] [place] [address] * Comprehensive Metabolic Panel, Plasma (06/27/2025 3:04 AM EST) Glucose, Plasma 6:37 AM EST [facility] Comment:Redraw due to incons istent results BUN, Plasma 06/27/2025 6:37 AM EST [facility] Comment: Redraw due to inconsistent results Previously prelim verified as 21 mg/dL on 06/27/2025 at 0439 EST. Creatinine, Plasma 06/27/2025 6:37 AM EST [facility] Comment: Redraw due to inconsistent results Previously prelim verified as 1.47 mg/dL on 06/27/2025 at 0439 EST. BUN/Creatinine Ratio 06/27/2025 6:37 AM EST [facility] Comment: Redraw due to inconsistent results Previously prelim verified as 14 on 06/27/2025 at 0439 EST. Sodium, Plasma 06/27/2025 6:37 AM EST [facility] Comment: Redraw due to inconsistent results Previously prelim verified as 138 mmol/L on 06/27/2025 at 0439 EST. Potassium, Plasma 025 6:37 AM EST [facility] Comment: Redraw due to inconsistent results Previously prelim verified as 4.1 mmol/L on 06/27/2025 at 0439 EST. Chloride, Plasma 06/27/20 25 6:37 AM EST [facility] Comment: Redraw due to inconsistent results Previously prelim verified as 99 mmol/L on 06/27/2025 at 0439 EST. CO2, Plasma 06/27/2025 6:37 AM EST [facility] Comment: Redraw due to inconsistent results Previously prelim verified as 28 mmol/L on 06/27/2025 at 0439 EST. Anion Gap 06/27/2025 6:37 AM EST [facility] Comment: Redraw due to inconsistent results Previously prelim verified as 11 mmol/L on 06/27/2025 at 0439 EST. Total Calcium, Plasma 06/27/2025 6:37 AM EST [facility] Comment: Redraw due to inconsistent results Previously prelim verified as 9.2 mg/dL on 06/27/2025 at 0439 EST. Total Protein 06/27/2025 6:37 AM EST [facility] Comment: Redraw due to inconsistent results Previously prelim verified as 6.2 g/dL on 06/27/2025 at 0439 EST. Albumin, Plasma 6:37 AM EST [facility] Comment: Redraw due to inconsistent results Previously prelim verified as 3.2 g/dL on 06/27/2025 at 0439 EST. AST, Plasma 06/27/2025 6:37 AM EST [facility] Comment: Redraw due to inconsistent results Previously prelim verified as 65 U/L on 06/27/2025 at 0439 EST. ALT, Plasma 06/27/2025 6:37 AM EST [facility] Comment: Redraw due to inconsistent results Previously prelim verified as 39 U/L on 06/27/2025 at 0439 EST. Alkaline Phosphatase, Plasma 06/27/2025 6:37 AM EST [facility] Comment: Redraw due to inconsistent results Previously prelim verified as 208 U/L on 06/27/2025 at 0439 EST. Total Bilirubin, Plasma 06/27/2025 6:37 AM EST [facility] Comment: Redraw due to inconsistent results Previously prelim verified as 1.9 mg/dL on 06/27/2025 at 0439 EST. eGFRcr 06/27/2025 6:37 AM EST [facility] Comment: Reported eGFRcr in mL/min/1.73m2 is based the CKD-EPI 2020 equation that does not use a race coefficient. Previously prelim verified as 42.0 mL/min/1.73m*2 on 06/27/2025 at 0439 EST. Blood Venous blood specimen / Unknown Venipuncture / Unknown 06/27/2025 3:04 AM EST 06/27/2025 3:58 AM EST us Alison Burns MD LAB BLOOD ORDERABLES Final Re sult [facility] [address] [place] [address] * (ABNORMAL) CBC W/O Differential (06/27/2025 3:04 AM EST) WBC Count 4.62 3.70 - 10.30 10*3/uL LAB HEMATOLOGY METHOD 06/27/2025 4:02 AM EST [facility] RBC Count 2.97(L) 3.90 - 5.20 10*6/uL LAB HEMATOLOGY METHOD 06/27/2025 4:02 AM EST [facility] HGB 10.5(L) 11.2 - 15.7 g/dL LAB HEMATOLOGY METHOD 06/27/2025 4:02 AM EST [facility] HCT 31.0(L) 34.0 - 45.0 % LAB HEMATOLOGY METHOD 06/27/2025 4:02 AM EST [facility] Platelet Count 51(L) 155 - 369 10*3/uL LAB HEMATOLOGY METHOD 06/27/2025 4:02 AM EST [facility] MCV 104(H) 79 - 98 fL LAB HEMATOLOGY METHOD 06/27/2025 4:02 AM EST [facility] MCH 35.4(H) 26.0 - 32.0 pg LAB HEMATOLOGY METHOD 06/27/2025 4:02 AM EST [facility] MCHC 33.9 30.7 - 35.5 g/dL LAB HEMATOLOGY METHOD 06/27/2025 4:02 AM EST [facility] RDW 13.6 11.5 - 14.5 % LAB HEMATOLOGY METHOD 06/27/2025 4:02 AM EST [facility] MPV 10.8 8.8 - 12.5 fL LAB HEMATOLOGY METHOD 06/27/2025 4:02 AM EST [facility] nRBC 0.0 <=0.0 per 100 WBCs LAB HEMATOLOGY METHOD 06/27/2025 4:02 AM EST [facility] Blood Venous blood specimen / Unknown Venipuncture / Unknown 06/27/2025 3:04 AM EST 06/27/2025 3:55 AM EST us Alison Burns MD LAB BLOOD ORDERABLES Final Re sult [facility] [address] [place] [address] * (ABNORMAL) Ferritin, Serum (06/27/2025 3:04 AM EST) Ferritin, Serum 774(H) 13 - 150 ng/mL 06/27/2025 8:46 AM EST [facility] Blood Venous blood specimen / Unknown Venipuncture / Unknown 06/27/2025 3:04 AM EST 06/27/2025 4:00 AM EST Alison Burns MD LAB BLOOD ORDERABLES Final Re sult [facility] [address] [place] [address] * (ABNORMAL) POCT glucose meter (06/26/2025 8:02 PM EST) POCT Glucose 160(H) 74 - 99 mg/dL 06/26/2025 8:04 PM EST [facility] Comment:Accuracy of [...] to the main labortory for testing. Comment 06/26/2025 8:04 PM EST [facility] Director Of Nuclear Medicine ID Jemma Miller 025 8:04 PM EST HE[facility]CARE LAB Device ID [id number] 06/26/2025 8:04 PM EST [facility] Specimen Type POC Capillary 06/26/2025 8:04 PM EST [facility] Blood Capillary blood specimen / Unknown 06/26/2025 8:02 PM EST 06/26/2025 8:04 PM EST Alison Burns MD LAB POINT OF CARE TE ST DOCKED DEVICE UNSOLICITED RESULTS Final Result [facility] [address] [place] [address] * (ABNORMAL) POCT glucose meter (06/26/2025 4:36 PM EST) POCT Glucose 121(H) 74 - 99 mg/dL 06/26/2025 4:39 PM EST [facility] Comment:Accuracy [...] to the main labortory for testing. Comment 06/26/2025 4:39 PM EST [facility] Director Of Nuclear Medicine ID Nuria Lee 06/26/2025 4:39 PM EST [facility] LAB Device ID [id number] 06/26/2025 4:39 PM EST [facility] Specimen Type POC Capillary 06/26/2025 4:39 PM EST [facility] Blood Capillary blood specimen / Unknown 06/26/2025 4:36 PM EST 06/26/2025 4:39 PM EST Alison Burns MD LAB POINT OF CARE TE ST DOCKED DEVICE UNSOLICITED RESULTS Final Result Performing Organization Address City/[facility] Co de Phone Number [facility] [address] [place] [address] * (ABNORMAL) POCT glucose meter (06/26/2025 11:35 AM EST) POCT Glucose 169(H) 74 - 99 mg/dL 06/26/2025 11:37 AM EST [facility] Comment:Accuracy of a glucos e result obtained from a capillary whole blood specimen relies upon adequate, non-compromised capillary blood flow. If the capillary glucose result is not consistent with the patient's clinical signs and symptoms, glucose testing should be repeated with either an arterial or venous sample on the glucometer or sent to the main labortory for testing. Comment 06/26/2025 11:37 AM EST [facility] Director Of Nuclear Medicine ID Nuria Lee 06/26/2025 11:37 AM EST [facility]ARE LAB Device ID [id number] 06/26/2025 11:37 AM EST [facility] Specimen Type POC Capillary 06/26/2025 11:37 AM EST [facility] Blood Capillary blood specimen / Unknown 06/26/2025 11:35 AM EST 06/26/2025 11:37 AM EST us Alison Burns MD LAB POINT OF CARE TE ST DOCKED DEVICE UNSOLICITED RESULTS Final Result Performing Organization Address City/[facility]/ZIP Co de Phone Number [facility] [address] [place] [address] * (ABNORMAL) POCT glucose meter (06/26/2025 7:19 AM EST) Pathologist [facility] POCT Glucose 124(H) 74 - 99 mg/dL 06/26/2025 7:21 AM EST [facility] Comment:Accuracy of a glucos e result obtained from a capillary whole blood specimen relies upon adequate, non-compromised capillary blood flow. If the capillary glucose result is not consistent with the patient's clinical signs and symptoms, glucose testing should be repeated with either an arterial or venous sample on the glucometer or sent to the main labortory for testing. Comment 06/26/2025 7:21 AM EST [facility] Director Of Nuclear Medicine ID Nuria Lee 06/26/2025 7:21 AM EST [facility] Device ID [id number] 06/26/2025 7:21 AM EST [facility] Specimen Type POC Capillary 06/26/2025 7:21 AM EST [facility] Blood Capillary blood specimen / Unknown 06/26/2025 7:19 AM EST 06/26/2025 7:21 AM EST Adrian Branham MD LAB POINT OF CARE TE ST DOCKED DEVICE UNSOLICITED RESULTS Final Result Performing Organization Address City/State/[facility] Co de Phone Number [facility] [address] [place] [address] * (ABNORMAL) POCT glucose meter (06/26/2025 3:36 AM EST) [facility] POCT Glucose 118(H) 74 - 99 mg/dL 06/26/2025 3:38 AM EST [facility] Comment:Accuracy of a glucos e result obtained from a capillary whole blood specimen relies upon adequate, non-compromised capillary blood flow. If the capillary glucose result is not consistent with the patient's clinical signs and symptoms, glucose testing should be repeated with either an arterial or venous sample on the glucometer or sent to the main labortory for testing. Comment 06/26/2025 3:38 AM EST [facility] Director Of Nuclear Medicine ID Denia Rob 06/26/2025 3:38 AM EST [facility] Device ID [id number] 06/26/2025 3:38 AM EST [facility] Specimen Type POC Capillary 06/26/2025 3:38 AM EST [facility] Blood Capillary blood specimen / Unknown 06/26/2025 3:36 AM EST 06/26/2025 3:38 AM EST us Adrian Branham MD LAB POINT OF CARE TE ST DOCKED DEVICE UNSOLICITED RESULTS Final Result Performing Organization Address City/[facility]/ZIP Co de Phone Number [facility] [address] [place] [address] * (ABNORMAL) Iron & Total Iron Binding Capacity, Plasma (Includes Transferrin) (06/26/2025 2:25 AM EST) Iron, Plasma 81 30 - 160 ug/dL 06/26/2025 6:59 PM EST [facility] Transferrin, Plasma 114(L) 200 - 360 mg/dL 06/26/2025 6:59 PM EST [facility] Total Iron Binding Capacity, Plasma 143(L) 240 - 450 ug/mL 06/26/2025 6:59 PM EST [facility] Transferrin Saturation 57(H) 14 - 50 % 06/26/2025 6:59 PM EST [facility] Blood Venous blood specimen / Unknown Venipuncture / Unknown 06/26/2025 2:25 AM EST 06/26/2025 2:51 AM EST us Alison Burns MD LAB BLOOD ORDERABLES Final Re sult Performing Organization Address [facility] de Phone Number [facility] [address] [place] [address] * (ABNORMAL) APTT (06/26/2025 2:25 AM EST) aPTT 41(H) 25 - 35 sec 06/26/2025 3:05 AM EST [facility] Blood Venous blood specimen / Unknown Venipuncture / Unknown 06/26/2025 2:25 AM EST 06/26/2025 2:53 AM EST us Grady Briones FIRST SAMPLER, DNP LAB BLOOD ORDERABLES Fin al Result Performing Organization Address City/[facility]/ZIP Co de Phone Number [facility] [address] [place] [address] * (ABNORMAL) PT/INR (06/26/2025 2:25 AM EST) Prothrombin Time 20.6(H) 12.0 - 14.3 sec 06/26/2025 3:05 AM EST [facility] INR 1.7(H) 0.9 - 1.1 06/26/2025 3:05 AM EST [facility] Blood Venous blood specimen / Unknown Venipuncture / Unknown 06/26/2025 2:25 AM EST 06/26/2025 2:53 AM EST Narrative [facility] - 06/26/2025 3:05 AM EST OPTIMAL INR RANGES FOR PATIENT ON ORAL ANTICOAGULANT THERAPY Prevention of venous thromboembolism INR 2.0 to 3.0 In patients with heart disease: Atrial fibrillation INR 2.0 to 3.0 Valvular heart disease INR 2.0 to 3.0 Tissue heart valves INR 2.0 to 3.0 Mechanical prosthetic valves INR 2.5 to 3.5 Prevention of recurrent HI INR 2.5 to 3.5 Grady Briones APRN, DNP LAB BLOOD ORDERABLES Fin al Result Performing Organization Address City/[facility]/ZIP Co de Phone Number [facility] [address] [place] [address] * Phosphorus (06/26/2025 2:25 AM EST) Pathologist [facility] Phosphorus, Plasma 3.0 2.5 - 4.5 mg/dL 06/26/2025 3:15 AM EST [facility] Blood Venous blood specimen / Unknown Venipuncture / Unknown 06/26/2025 2:25 AM EST 06/26/2025 2:51 AM EST Grady Briones APRN, DNP LAB BLOOD ORDERABLES Fin al Result [facility] [address] [place] [address] * Magnesium, Plasma (06/26/2025 2:25 AM EST) Pathologist [facility] Magnesium, Plasma 2.2 1.9 - 2.4 mg/dL 06/26/2025 3:15 AM EST [facility] Blood Venous blood specimen / Unknown Venipuncture / Unknown 06/26/2025 2:25 AM EST 06/26/2025 2:51 AM EST us Grady Briones FIRST SAMPLER, DNP LAB BLOOD ORDERABLES Fin al Result [facility] [address] [place] [address] * (ABNORMAL) Comprehensive metabolic panel (06/26/2025 2:25 AM EST) Glucose, Plasma 130(H) 74 - 99 mg/dL 06/26/2025 3:15 AM EST [facility] BUN, Plasma 21 7 - 21 mg/dL 06/26/2025 3:15 AM EST [facility] Creatinine, Plasma 1.46(H) 0.60 - 1.10 mg/dL 06/26/2025 3:15 AM EST [facility] BUN/Creatinine Ratio 14 06/26/2025 3:15 AM EST [facility] Sodium, Plasma 136 136 - 145 mmol/L 06/26/2025 3:15 AM EST [facility] Potassium, Plasma 3.9 3.6 - 4.9 mmol/L 06/26/2025 3:15 AM EST [facility] Chloride, Plasma 98 97 - 107 mmol/L 06/26/2025 3:15 AM EST [facility] CO2, Plasma 29 22 - 29 mmol/L 06/26/2025 3:15 AM EST [facility] Anion Gap 9 6 - 16 mmol/L 06/26/2025 3:15 AM EST [facility] Total Calcium, Plasma 9.8 8.9 - 10.2 mg/dL 06/26/2025 3:15 AM EST [facility] Total Protein 7.0 6.3 - 7.9 g/dL 06/26/2025 3:15 AM EST [facility] Albumin, Plasma 3.7 3.5 - 5.2 g/dL 06/26/2025 3:15 AM EST [facility] AST, Plasma 72(H) 10 - 35 U/L 06/26/2025 3:15 AM EST [facility] ALT, Plasma 45(H) 10 - 35 U/L 06/26/2025 3:15 AM EST [facility] Alkaline Phosphatase, Plasma 181(H) 35 - 104 U/L 06/26/2025 3:15 AM EST [facility] Total Bilirubin, Plasma 2.8(H) 0.2 - 1.1 mg/dL 06/26/2025 3:15 AM EST [facility] eGFRcr 42.3 mL/min/1.7 3m*2 06/26/2025 3:15 AM EST [facility] Comment:Reported eGFRcr in m L/min/1.73m2 is based the CKD-EPI 2020 equation that does not use a race coefficient. Blood Venous blood specimen / Unknown Venipuncture / Unknown 06/26/2025 2:25 AM EST 06/26/2025 2:51 AM EST us Grady Briones FIRST SAMPLER, DNP LAB BLOOD ORDERABLES Fin al Result [facility] [address] [place] [id number] * (ABNORMAL) CBC and Differential (06/26/2025 2:25 AM EST) WBC Count 3.88 3.70 - 10.30 10*3/uL LAB HEMATOLOGY METHOD 06/26/2025 2:55 AM EST [facility] RBC Count 2.94(L) 3.90 - 5.20 10*6/uL LAB HEMATOLOGY METHOD 06/26/2025 2:55 AM EST [facility] HGB 10.5(L) 11.2 - 15.7 g/dL LAB HEMATOLOGY METHOD 06/26/2025 2:55 AM EST [facility] HCT 30.6(L) 34.0 - 45.0 % LAB HEMATOLOGY METHOD 06/26/2025 2:55 AM EST [facility] Platelet Count 41(L) 155 - 369 10*3/uL LAB HEMATOLOGY METHOD 06/26/2025 2:55 AM EST [facility] MCV 104(H) 79 - 98 fL LAB HEMATOLOGY METHOD 06/26/2025 2:55 AM EST [facility] MCH 35.7(H) 26.0 - 32.0 pg LAB HEMATOLOGY METHOD 06/26/2025 2:55 AM EST [facility] MCHC 34.3 30.7 - 35.5 g/dL LAB HEMATOLOGY METHOD 06/26/2025 2:55 AM EST [facility] RDW 13.7 11.5 - 14.5 % LAB HEMATOLOGY METHOD 06/26/2025 2:55 AM EST [facility] MPV 10.6 8.8 - 12.5 fL LAB HEMATOLOGY METHOD 06/26/2025 2:55 AM EST [facility] nRBC 0.0 <=0.0 per 100 WBCs LAB HEMATOLOGY METHOD 06/26/2025 2:55 AM EST [facility] Differential Type Automated LAB HEMATOLOGY METHOD 06/26/2025 2:55 AM EST [facility] Neutrophils % 61 % LAB HEMATOLOGY METHOD 06/26/2025 2:55 AM EST [facility] Lymphocytes % 24 % LAB HEMATOLOGY METHOD 06/26/2025 2:55 AM EST [facility] Monocytes % 10 % LAB HEMATOLOGY METHOD 06/26/2025 2:55 AM EST [facility] Eosinophils % 3 % LAB HEMATOLOGY METHOD 06/26/2025 2:55 AM EST [facility] Basophils % 1 % LAB HEMATOLOGY METHOD 06/26/2025 2:55 AM EST [facility] Immature Granulocytes % 1 % LAB HEMATOLOGY METHOD 06/26/2025 2:55 AM EST [facility] Neutrophils Absolute 2.43 1.60 - 6.10 10*3/uL LAB HEMATOLOGY METHOD 06/26/2025 2:55 AM EST [facility] Lymphocytes Absolute 0.93(L) 1.20 - 3.90 10*3/uL LAB HEMATOLOGY METHOD 06/26/2025 2:55 AM EST [facility] Monocytes Absolute 0.38 0.30 - 0.90 10*3/uL LAB HEMATOLOGY METHOD 06/26/2025 2:55 AM EST [facility] Eosinophils Absolute 0.10 0.00 - 0.50 10*3/uL LAB HEMATOLOGY METHOD 06/26/2025 2:55 AM EST [facility] Basophils Absolute 0.02 0.00 - 0.10 10*3/uL LAB HEMATOLOGY METHOD 06/26/2025 2:55 AM EST [facility] Immature Granulocytes Absolute 0.02 0.00 - 0.06 10*3/uL LAB HEMATOLOGY METHOD 06/26/2025 2:55 AM EST [facility] Blood Venous blood specimen / Unknown Venipuncture / Unknown 06/26/2025 2:25 AM EST 06/26/2025 2:53 AM EST Narrative [facility] - 06/26/2025 2:55 AM EST Therapeutic decision making should be based on absolute values, rather than percentages. us Grady Wilson Anali LAMAS, DNP LAB BLOOD ORDERABLES Fin al Result Performing Organization Address [facility] de Phone Number [facility] [address] [place] [address] * Urea Nitrogen, Random Urine (06/26/2025 12:29 AM EST) Urea Nitrogen, Urine 191 mg/dL 06/26/2025 3:45 AM EST [facility] Urine Urine specimen obtained by clean catch procedure / Unknown Non-blood Collection / Unknown 06/26/2025 12:29 AM EST 06/26/2025 12:32 AM EST wilbur Briones CYDNEY, DNP LAB URINE ORDERABLES Fin al Result Performing Organization Address [facility] Phone Number [facility] [address] [place] [address] * Creatinine, Random, Urine (06/26/2025 12:29 AM EST) Creatinine, Urine 25 mg/dL 06/26/2025 12:55 AM EST [facility] Urine Urine specimen obtained by clean catch procedure / Unknown Non-blood Collection / Unknown 06/26/2025 12:29 AM EST 06/26/2025 12:32 AM EST us Grady Wilson Anali LAMAS, DNP LAB URINE ORDERABLES Fin al Result Performing Organization Address City/[facility] de Phone Number [facility] [address] [place] [id number] * Chloride, Random Urine (06/26/2025 12:29 AM EST) Chloride, Urine 60 mmol/L 3:45 AM EST [facility] Urine Urine specimen obtained by clean catch procedure / Unknown Non-blood Collection / Unknown 06/26/2025 12:29 AM EST 06/26/2025 12:32 AM EST us Grady Wilson Anali MERINON, DNP LAB URINE ORDERABLES Fin al Result [facility] [address] [place] [address] * Potassium, Random, Urine (06/26/2025 12:29 AM EST) Potassium, Urine 16 mmol/L 06/26/2025 12:55 AM EST [facility] Urine Urine specimen obtained by clean catch procedure / Unknown Non-blood Collection / Unknown 06/26/2025 12:29 AM EST 06/26/2025 12:32 AM EST us Grady Wilson Anali LAMAS, DNP LAB URINE ORDERABLES Fin al Result Performing Organization Address City/[facility] Co de Phone Number [facility] [address] [place] [address] * Sodium, Random, Urine (06/26/2025 12:29 AM EST) Sodium, Urine 68 mmol/L 06/26/2025 12:55 AM EST [facility] Urine Urine specimen obtained by clean catch procedure / Unknown Non-blood Collection / Unknown 06/26/2025 12:29 AM EST 06/26/2025 12:32 AM EST us Grady Wilson Anali LAMAS, DNP LAB URINE ORDERABLES Fin al Result Performing Organization Address City/[facility]/ZIP Co de Phone Number [facility] [address] [place] [address] * Urine Contreras Panel (06/25/2025 7:27 PM EST) Extra Reflex urine culture not indicated 06/26/2025 4:03 AM EST [facility] Comment: Previously prelim verified as Specimen evaluation in progress on 06/25/2025 at 2102 EST. Previously prelim verified as Specimen evaluation in progress on 06/25/2025 at 2202 EST. Previously prelim verified as Specimen evaluation in progress on 06/25/2025 at 2302 EST. Previously prelim verified as Specimen evaluation in progress on 06/26/2025 at 0002 EST. Previously prelim verified as Specimen evaluation in progress on 06/26/2025 at 0104 EST. Previously prelim verified as Specimen evaluation in progress on 06/26/2025 at 0202 EST. Previously prelim verified as Specimen evaluation in progress on 06/26/2025 at 0303 EST. Urine Urine specimen obtained by clean catch procedure / Unknown Non-blood Collection / Unknown 06/25/2025 7:27 PM EST 06/25/2025 7:43 PM EST us [facility] URINE ORDERABLES Final Res ult [facility] [address] [place] [address] * (ABNORMAL) Urinalysis with reflex microscopic (Culture NOT Included) (06/25/2025 7:27 PM EST) Color, Urine Yellow LAB URINALYSIS - AUTOMATED METHOD 06/25/2025 7:46 PM EST [facility] Clarity, Urine Clear LAB URINALYSIS - AUTOMATED METHOD 06/25/2025 7:46 PM EST [facility] Spec [place], Urine 1.010 1.005 - 1.030 LAB URINALYSIS - AUTOMATED METHOD 06/25/2025 7:46 PM EST [facility] pH, Urine 6.5 5.0 - 8.0 LAB URINALYSIS - AUTOMATED METHOD 06/25/2025 7:46 PM EST [facility] Protein, Urine Negative Negative mg/dL LAB URINALYSIS - AUTOMATED METHOD 06/25/2025 7:46 PM EST [facility] Glucose, Urine 500(A) Negative mg/dL LAB URINALYSIS - AUTOMATED METHOD 06/25/2025 7:46 PM EST [facility] Ketones, Urine Negative Negative mg/dL LAB URINALYSIS - AUTOMATED METHOD 06/25/2025 7:46 PM EST [facility] Blood, Urine Negative Negative LAB URINALYSIS - AUTOMATED METHOD 06/25/2025 7:46 PM EST [facility] Bilirubin, Urine Negative Negative LAB URINALYSIS - AUTOMATED METHOD 06/25/2025 7:46 PM EST [facility] Urobilinogen, Urine 0.2 0.2 to 1.0 mg/dL LAB URINALYSIS - AUTOMATED METHOD 06/25/2025 7:46 PM EST [facility] Leukocytes, Urine Negative Negative LAB URINALYSIS - AUTOMATED METHOD 06/25/2025 7:46 PM EST [facility] Nitrite, Urine Negative Negative LAB URINALYSIS - AUTOMATED METHOD 06/25/2025 7:46 PM EST [facility] Urine Urine specimen obtained by clean catch procedure / Unknown Non-blood Collection / Unknown 06/25/2025 7:27 PM EST 06/25/2025 7:43 PM EST [facility] URINE ORDERABLES Final Res ult Performing Organization Address City/[facility] Co de Phone Number [facility] [address] [place] [address] * (ABNORMAL) Troponin T, High Sensitivity, 2 Hour, Plasma (06/25/2025 7:26 PM EST) Troponin T, High Sensitivity, 2 Hour 20(H) <14 ng/L 06/25/2025 8:04 PM EST [facility] Troponin Delta 3 <10 ng/L 06/25/2025 8:04 PM EST [facility] Troponin Delta Interpretation Not Significant 06/25/2025 8:04 PM EST [facility] Comment:Not Significant. No acute change in troponin observed between the baseline and 2 hour samples. Blood Venous blood specimen / Unknown Venipuncture / Unknown 06/25/2025 7:26 PM EST 06/25/2025 7:42 PM EST Gavin Blackmon DO LAB BLOOD ORDERABLES Final Resu lt Performing Organization Address City/[facility] Co de Phone Number [facility] [address] [place] [address] * Blood Culture (Aerobic/Anaerobet Set) (06/25/2025 6:40 PM EST) Culture No growth at day 5 06/30/2025 8:01 PM EST [facility] Blood Structure of left hand / Unknown Venipuncture / Unknown 06/25/2025 6:40 PM EST 06/25/2025 6:49 PM EST Narrative [facility] - 06/30/2025 8:01 PM EST Low blood volume submitted, results may be compromised us [facility] MICROBIOLOGY - GENERAL ORD ERABLES Final Result [facility] [address] [place] [address] * XR Chest 1 View (06/25/2025 6:33 PM EST) Anatomical Region Laterality Modality Chest Digital Radiogra phy Impressions 06/25/2025 6:35 PM EST No acute finding CRITICAL RESULT: No. COMMUNICATION: Per this written report. Drafted by Tyler Chino MD on 06/25/2025 6:34 PM Final report signed by Tyler Chino MD on 06/25/2025 6:35 PM Narrative 06/25/2025 6:35 PM EST CLINICAL INDICATION: Sepsis Workup TECHNIQUE: XR CHEST 1 VIEW COMPARISON: 05/25/2025 FINDINGS: Similar cardiomediastinal contour. Mild bibasilar atelectasis. No acute airspace opacity, large pleural effusion, pneumothorax, or acute osseous finding. Procedure Note Tyler Chino MD - 06/25/2025 CLINICAL INDICATION: Sepsis Workup TECHNIQUE: XR CHEST 1 VIEW COMPARISON: 05/25/2025 FINDINGS: Similar cardiomediastinal contour. Mild bibasilar atelectasis. No acuteairspace opacity, large pleural effusion, pneumothorax, or acute osseousfinding. IMPRESSION: No acute finding CRITICAL RESULT: No. COMMUNICATION: Per this written report. Drafted by Tyler Chino MD on 06/25/2025 6:34 PM Final report signed by Tyler Chino MD on 06/25/2025 6:35 PM us [facility] IMG XR PROCEDURES Final Result * Blood Culture (Aerobic/Anaerobet Set) (06/25/2025 6:01 PM EST) Culture No growth at day 5 06/30/2025 8:01 PM EST [facility] Blood Venous blood specimen / Unknown Venipuncture / Unknown 06/25/2025 6:01 PM EST 06/25/2025 6:24 PM EST Narrative [facility] - 06/30/2025 8:01 PM EST Low blood volume submitted, results may be compromised [facility] MICROBIOLOGY - GENERAL ORD ERABLES Final Result [facility] [address] [place] [address] * SARS-CoV-2 COVID-19/Influenza A,B (06/25/2025 4:58 PM EST) SARS CoV-2/COVID-19 RNA PCR Result Not Detected Not Detected 06/25/2025 5:34 PM EST [facility] Comment:For In Vitro Diagnos tic Use Influenza A Virus PCR Result Not Detected Not Detected 06/25/2025 5:34 PM EST [facility] Comment:For In Vitro Diagnos tic Use Influenza B Virus PCR Result Not Detected Not Detected 06/25/2025 5:34 PM EST [facility] Comment:For In Vitro Diagnos tic Use Swab Nasopharyngeal structure / Unknown Non-blood Collection / Unknown 06/25/2025 4:58 PM EST 06/25/2025 5:11 PM EST Narrative [facility] - 06/25/2025 5:34 PM EST This test was performed using the Patricia SARS-CoV-2 & Influenza A/B assay on the Prachi Karen analyzer, an RT-PCR based method. Negative results do not preclude infection with the SARS-CoV-2 virus and should not be the sole basis of a patient treatment/management or public health decision. Follow up testing should be performed according to the current CDC recommendations. The limit of detection (LoD) for this assay is 12 cp/mL SARS-CoV-2 RNA. Use of the Patricia SARS-CoV-2 & Influenza A/B assay in an asymptomatic screening population is intended to be used as part of an infection control plan that may include additional preventative measures, such as a predefined serial testing plan or directed testing of high-risk individuals. Negative results should be considered presumptive and do not preclude current or future infection obtained through community transmission or other exposures. Negative results must be considered in the context of an individual's recent exposures, history, presence of clinical signs and symptoms consistent with COVID-19. us [place] L Blackmon DO LAB MICROBIOLOGY - GENERAL ORDE ANGELITO Final Result [facility] [address] [place] [address] * (ABNORMAL) Blood gas panel, venous (06/25/2025 4:57 PM EST) pH, Venous 7.35 7.32 - 7.43 LAB HEMATOLOGY METHOD 06/25/2025 5:07 PM EST [facility] pCO2, Venous 51 37 - 52 mmHg LAB HEMATOLOGY METHOD 06/25/2025 5:07 PM EST [facility] pO2, Venous 23(L) 25 - 40 mmHg LAB HEMATOLOGY METHOD 06/25/2025 5:07 PM EST [facility] SO2, Measured, Venous 32(L) 65 - 80 % LAB HEMATOLOGY METHOD 06/25/2025 5:07 PM EST [facility] Base Excess, Venous 1.8 -2.0 - 3.0 mmol/L LAB HEMATOLOGY METHOD 06/25/2025 5:07 PM EST [facility] Bicarbonate, Calculated, Venous 28(H) 22 - 26 mmol/L LAB HEMATOLOGY METHOD 06/25/2025 5:07 PM EST [facility] Hematocrit, Whole Blood 32.7(L) 34.0 - 45.0 % LAB HEMATOLOGY METHOD 06/25/2025 5:07 PM EST [facility] Sodium, Whole Blood 136 136 - 145 mmol/L LAB HEMATOLOGY METHOD 06/25/2025 5:07 PM EST [facility] Potassium, Whole Blood 3.4(L) 3.6 - 4.9 mmol/L LAB HEMATOLOGY METHOD 06/25/2025 5:07 PM EST [facility] Chloride, Whole Blood 96(L) 97 - 107 mmol/L LAB HEMATOLOGY METHOD 06/25/2025 5:07 PM EST [facility] Glucose, Whole Blood 135(H) 74 - 99 mg/dL LAB HEMATOLOGY METHOD 06/25/2025 5:07 PM EST [facility] Lactate, Venous, Whole Blood 3.4(H) 0.5 - 2.2 mmol/L LAB HEMATOLOGY METHOD 06/25/2025 5:07 PM EST [facility] Ionized Calcium, Whole Blood 4.8 4.6 - 5.1 mg/dL LAB HEMATOLOGY METHOD 06/25/2025 5:07 PM EST [facility] Blood Venous blood specimen / Unknown Venipuncture / Unknown 06/25/2025 4:57 PM EST 06/25/2025 5:03 PM EST [facility] BLOOD ORDERABLES Final Resu lt Performing Organization Address City/[facility] Co de Phone Number [facility] [address] [place] [address] * (ABNORMAL) PT-INR (06/25/2025 4:57 PM EST) Prothrombin Time 20.3(H) 12.0 - 14.3 sec 06/25/2025 5:22 PM EST [facility] INR 1.7(H) 0.9 - 1.1 06/25/2025 5:22 PM EST [facility] Blood Venous blood specimen / Unknown Venipuncture / Unknown 06/25/2025 4:57 PM EST 06/25/2025 5:03 PM EST Narrative [facility] - 06/25/2025 5:22 PM EST OPTIMAL INR RANGES FOR PATIENT ON ORAL ANTICOAGULANT THERAPY Prevention of venous thromboembolism INR 2.0 to 3.0 In patients with heart disease: Atrial fibrillation INR 2.0 to 3.0 Valvular heart disease INR 2.0 to 3.0 Tissue heart valves INR 2.0 to 3.0 Mechanical prosthetic valves INR 2.5 to 3.5 Prevention of recurrent HI INR 2.5 to 3.5 [facility] BLOOD ORDERABLES Final Resu lt Performing Organization Address City/[facility] Co de Phone Number [facility] [address] [place] [address] * (ABNORMAL) Troponin now and 120 min (06/25/2025 4:57 PM EST) Troponin T, High Sensitivity, 0 Hour 17(H) <14 ng/L 06/25/2025 5:24 PM EST [facility] Blood Venous blood specimen / Unknown Venipuncture / Unknown 06/25/2025 4:57 PM EST 06/25/2025 5:03 PM EST [facility] BLOOD ORDERABLES Final Resu lt Performing Organization Address City/[facility]/ZIP Co de Phone Number [facility] [address] [place] [address] * BNP (06/25/2025 4:57 PM EST) Pathologist [facility] N-Terminal, PROBNP, Plasma 367 0 - 899 pg/mL 06/25/2025 5:24 PM EST [facility] Blood Venous blood specimen / Unknown Venipuncture / Unknown 06/25/2025 4:57 PM EST 06/25/2025 5:03 PM EST [facility] DO LAB BLOOD ORDERABLES Final Resu lt Performing Organization Address City/[facility]/ZIP Co de Phone Number [facility] [address] [place] [address] * Magnesium (06/25/2025 4:57 PM EST) Pathologist [facility] Magnesium, Plasma 2.2 1.9 - 2.4 mg/dL 06/25/2025 5:24 PM EST [facility] Blood Venous blood specimen / Unknown Venipuncture / Unknown 06/25/2025 4:57 PM EST 06/25/2025 5:03 PM EST [facility] DO LAB BLOOD ORDERABLES Final Resu Performing Organization Address City/[facility]/ZIP Co de Phone Number [facility] [address] [place] [address] * (ABNORMAL) CMP (06/25/2025 4:57 PM EST) Pathologist [facility] Glucose, Plasma 148(H) 74 - 99 mg/dL 06/25/2025 5:24 PM EST [facility] BUN, Plasma 23(H) 7 - 21 mg/dL 06/25/2025 5:24 PM EST [facility] Creatinine, Plasma 1.53(H) 0.60 - 1.10 mg/dL 06/25/2025 5:24 PM EST [facility] BUN/Creatinine Ratio 15 06/25/2025 5:24 PM EST [facility] Sodium, Plasma 133(L) 136 - 145 mmol/L 06/25/2025 5:24 PM EST [facility] Potassium, Plasma 3.6 3.6 - 4.9 mmol/L 06/25/2025 5:24 PM EST [facility] Chloride, Plasma 96(L) 97 - 107 mmol/L 06/25/2025 5:24 PM EST [facility] CO2, Plasma 26 22 - 29 mmol/L 06/25/2025 5:24 PM EST [facility] Anion Gap 11 6 - 16 mmol/L 06/25/2025 5:24 PM EST [facility] Total Calcium, Plasma 9.6 8.9 - 10.2 mg/dL 06/25/2025 5:24 PM EST [facility] Total Protein 6.7 6.3 - 7.9 g/dL 06/25/2025 5:24 PM EST [facility] Albumin, Plasma 3.8 3.5 - 5.2 g/dL 06/25/2025 5:24 PM EST [facility] AST, Plasma 67(H) 10 - 35 U/L 06/25/2025 5:24 PM EST [facility] ALT, Plasma 42(H) 10 - 35 U/L 06/25/2025 5:24 PM EST [facility] Alkaline Phosphatase, Plasma 149(H) 35 - 104 U/L 06/25/2025 5:24 PM EST [facility] Total Bilirubin, Plasma 2.5(H) 0.2 - 1.1 mg/dL 06/25/2025 5:24 PM EST [facility] eGFRcr 40.0 mL/min/1.7 3m*2 06/25/2025 5:24 PM EST [facility] Comment:Reported eGFRcr in m L/min/1.73m2 is based the CKD-EPI 2020 equation that does not use a race coefficient. Blood Venous blood specimen / Unknown Venipuncture / Unknown 06/25/2025 4:57 PM EST 06/25/2025 5:03 PM EST Gavin Blackmon DO LAB BLOOD ORDERABLES Final Resu lt [facility] [address] [place] [address] * (ABNORMAL) CBC w/diff (06/25/2025 4:57 PM EST) WBC Count 5.71 3.70 - 10.30 10*3/uL LAB HEMATOLOGY METHOD 06/25/2025 5:27 PM EST [facility] RBC Count 2.89(L) 3.90 - 5.20 10*6/uL LAB HEMATOLOGY METHOD 06/25/2025 5:27 PM EST [facility] HGB 10.4(L) 11.2 - 15.7 g/dL LAB HEMATOLOGY METHOD 06/25/2025 5:27 PM EST [facility] HCT 30.5(L) 34.0 - 45.0 % LAB HEMATOLOGY METHOD 06/25/2025 5:27 PM EST [facility] Platelet Count 57(L) 155 - 369 10*3/uL LAB HEMATOLOGY METHOD 06/25/2025 5:27 PM EST [facility] MCV 106(H) 79 - 98 fL LAB HEMATOLOGY METHOD 06/25/2025 5:27 PM EST [facility] MCH 36.0(H) 26.0 - 32.0 pg LAB HEMATOLOGY METHOD 06/25/2025 5:27 PM EST [facility] MCHC 34.1 30.7 - 35.5 g/dL LAB HEMATOLOGY METHOD 06/25/2025 5:27 PM EST [facility] RDW 13.9 11.5 - 14.5 % LAB HEMATOLOGY METHOD 06/25/2025 5:27 PM [facility] MPV 10.5 8.8 - 12.5 fL LAB HEMATOLOGY METHOD 06/25/2025 5:27 PM [facility] nRBC 0.0 <=0.0 per 100 WBCs LAB HEMATOLOGY METHOD 06/25/2025 5:27 PM [facility] Differential Type Automated LAB HEMATOLOGY METHOD 06/25/2025 5:27 PM [facility] Neutrophils % 66 % LAB HEMATOLOGY METHOD 06/25/2025 5:27 PM [facility] Lymphocytes % 18 % LAB HEMATOLOGY METHOD 06/25/2025 5:27 PM EST [facility] Monocytes % 10 % LAB HEMATOLOGY METHOD 06/25/2025 5:27 PM EST [facility] Eosinophils % 4 % LAB HEMATOLOGY METHOD 06/25/2025 5:27 PM EST [facility] Basophils % 1 % LAB HEMATOLOGY METHOD 06/25/2025 5:27 PM EST [facility] Immature Granulocytes % 1 % LAB HEMATOLOGY METHOD 06/25/2025 5:27 PM EST [facility] Neutrophils Absolute 3.83 1.60 - 6.10 10*3/uL LAB HEMATOLOGY METHOD 06/25/2025 5:27 PM EST [facility] Lymphocytes Absolute 1.01(L) 1.20 - 3.90 10*3/uL LAB HEMATOLOGY METHOD 06/25/2025 5:27 PM EST [facility] Monocytes Absolute 0.57 0.30 - 0.90 10*3/uL LAB HEMATOLOGY METHOD 06/25/2025 5:27 PM EST [facility] Eosinophils Absolute 0.23 0.00 - 0.50 10*3/uL LAB HEMATOLOGY METHOD 06/25/2025 5:27 PM EST [facility] Basophils Absolute 0.03 0.00 - 0.10 10*3/uL LAB HEMATOLOGY METHOD 06/25/2025 5:27 PM EST [facility] Immature Granulocytes Absolute 0.04 0.00 - 0.06 10*3/uL LAB HEMATOLOGY METHOD 06/25/2025 5:27 PM EST [facility] Blood Venous blood specimen / Unknown Venipuncture / Unknown 06/25/2025 4:57 PM EST 06/25/2025 5:03 PM EST Narrative [facility] - 06/25/2025 5:27 PM EST Therapeutic decision making should be based on absolute values, rather than percentages. Gavin Blackmon DO LAB BLOOD ORDERABLES Final Resu lt [facility] [address] [place] [id number] documented in this encounter Visit Diagnoses Diagnosis KENDRA (acute kidney injury)- Primary Hypotension, unspecified hypotension type Cirrhosis of liver without ascites, unspecified hepatic cirrhosis type KENDRA (acute kidney injury) Encephalopathy, hepatic (CMS/HCC) Hepatic encephalopathy End-stage liver disease (CMS/HCC) Other sequelae of chronic liver disease Abnormal electrocardiogram (ECG) (EKG) Congestive heart failure Congestive heart failure, unspecified Anxiety and depression Essential hypertension Unspecified essential hypertension GERD (gastroesophageal reflux disease) Esophageal reflux Hyperlipemia Other and unspecified hyperlipidemia Iron (Fe) deficiency anemia Unspecified iron deficiency anemia Type 2 diabetes mellitus Obesity Obesity, unspecified Hypotension, unspecified hypotension type documented in this encounter Admitting Diagnoses Diagnosis KENDRA (acute kidney injury) Hypotension, unspecified hypotension type documented in this encounter Administered Medications Inactive Administered Medications - up to 3 most recent administrations Medication Order MAR Action Action Date Dose Rate Site acetaminophen (Tylenol) tablet 500 mg 500 mg, Oral, Every 8 hours PRN, Starting on Wed06/25/25 at 2358, Until Wed07/02/25 at 1530, Routine, Mild Plus Pain with CPOT DVPRS FLACC PAINAD NPASS NRS Gil-Fuentes Faces score of 1 or greater OR NIPS score 2 or greater, Moderate Severe Pain with CPOT score of 3 or greater OR FLACC PAINAD NPASS NRS Gil-Fuentes Faces score of 4 or greater OR DVPRS NIPS score of 5 or greater, headaches, fever, fever > 100.4 Given 07/02/2025 8:19 AM EST 500 mg Given 07/01/2025 9:13 AM EST 500 mg Given 06/30/2025 9:20 AM EST 500 mg bisacodyl (Dulcolax) suppository 10 mg 10 mg, Rectal, Once, 1 dose, On Wed06/29/25 at 0845, Routine Given 06/29/2025 9:17 AM EST 10 mg bumetanide (Bumex) injection 2 mg 2 mg, Intravenous, Once, 1 dose, On Wed06/26/25 at 1630, Routine Given 06/26/2025 4:37 PM EST 2 mg bumetanide (Bumex) injection 2 mg 2 mg, Intravenous, Once, 1 dose, On Wed06/27/25 at 1100, Routine Given 06/27/2025 11:07 AM EST 2 mg bumetanide (Bumex) tablet 2 mg 2 mg, Oral, 2 times daily (0900 & 1500), First dose on Wed06/29/25 at 0900, Until Discontinued, Routine Given 06/29/2025 9:16 AM EST 2 mg bumetanide (Bumex) tablet 2 mg 2 mg, Oral, Daily, First dose (after last modification) on Wed06/30/25 at 0900, Until Discontinued, Routine Given 07/01/2025 9:14 AM EST 2 mg Given 06/30/2025 9:15 AM EST 2 mg bumetanide (Bumex) tablet 2 mg 2 mg, Oral, 2 times daily (0900 & 1500), First dose (after last modification) on Wed07/01/25 at 1600, Until Discontinued, Routine Given 07/02/2025 8:13 AM EST 2 mg Given 07/01/2025 3:49 PM EST 2 mg bumetanide (Bumex) tablet 4 mg 4 mg, Oral, Daily, First dose on Wed06/26/25 at 1300, Until Discontinued, Routine Given 06/26/2025 12:36 PM EST 4 mg busPIRone (Buspar) tablet 7.5 mg 7.5 mg, Oral, 2 times daily, First dose on Wed06/26/25 at 0005, Until Discontinued Given 07/02/2025 8:12 AM EST 7.5 mg Given 07/01/2025 8:38 PM EST 7.5 mg Given 07/01/2025 9:13 AM EST 7.5 mg cyclobenzaprine (Flexeril) tablet 10 mg 10 mg, Oral, 3 times daily PRN, Starting on Wed06/25/25 at 2346, Until Wed07/02/25 at 1530, muscle spasms Given 07/01/2025 3:05 PM EST 10 mg Given 06/30/2025 3:48 PM EST 10 mg Given 06/27/2025 8:54 PM EST 10 mg desvenlafaxine (Pristiq) 24 hr tablet 50 mg 50 mg, Oral, Daily, First dose on Wed06/26/25 at 0900, Until Discontinued, Routine Given 07/01/2025 8:38 PM EST 50 mg Given 06/30/2025 9:08 PM EST 50 mg Given 06/29/2025 8:28 PM EST 50 mg dextrose 10 % (D10W) bolus 125 mL 125 mL, Intravenous, Every 15 min PRN, Starting on Wed06/25/25 at 2357, Until Wed07/02/25 at 1530, Administer over 15 Minutes, Routine, low blood sugar BG 51-89 mg/dL dextrose 10 % (D10W) bolus 250 mL 250 mL, Intravenous, Every 15 min PRN, Starting on Wed06/25/25 at 2357, Until Wed07/02/25 at 1530, Administer over 15 Minutes, Routine, PRN low blood sugar BG =/<50 mg/dL ferrous sulfate EC tablet 324 mg 324 mg, Oral, Daily with breakfast, First dose on Wed06/26/25 at 0800, Until Discontinued Given 07/01/2025 8:38 PM EST 324 mg Given 06/30/2025 9:02 PM EST 324 mg Given 06/29/2025 8:28 PM EST 324 mg gadobutrol (Gadavist) injection 9.3 mL 9.3 mL (rounded from 9.34 mL = 0.1 mL/kg 93.4 kg), Intravenous, Once in imaging, 1 dose, Starting on Wed06/29/25 at 1326, Until Wed06/29/25 at 1404, Routine, Imaging Protocol Orders Given 06/29/2025 2:04 PM EST 9.3 mL glucagon (human recombinant) injection 1 mg 1 mg, Intramuscular, Every 15 min PRN, Starting on Wed06/25/25 at 2357, Until Wed07/02/25 at 1530, Routine, low blood sugar per Hypoglycemia Prevention and Treatment protocol glucose (Glutose) 40 % oral gel 15-30 grams of glucose 15-30 grams of glucose, Sublingual, Every 15 min PRN, Starting on Wed06/25/25 at 2357, Until Wed07/02/25 at 1530, Routine, low blood sugar, per Hypoglycemia Prevention and Treatment protocol hydrOXYzine pamoate (Vistaril) capsule 25 mg 25 mg, Oral, 2 times daily PRN, Starting on Wed06/27/25 at 1936, Until Wed07/02/25 at 1530, Routine, anxiety Given 07/01/2025 3:05 PM EST 25 mg Given 07/01/2025 9:13 AM EST 25 mg Given 06/30/2025 9:01 PM EST 25 mg insulin lispro (Admelog) 100 units/mL injection - Correction - Standard Dose 0-5 Units, Subcutaneous, 3 times daily with meals, First dose on Wed06/26/25 at 0830, Until Discontinued, Routine Given 06/27/2025 11:36 AM EST 1 Units Left Upper Arm (Back ) Given 06/27/2025 9:51 AM EST 1 Units Ri ght Upper Arm (Back) Given 06/26/2025 11:50 AM EST 1 Units R ight Upper Arm (Back) insulin lispro (Admelog) 100 units/mL injection - Correction - Standard Dose 0-5 Units, Subcutaneous, 3 times daily with meals, First dose on Wed06/29/25 at 0845, Until Discontinued, Routine Given 06/30/2025 12:07 PM EST 2 Units Right Upper Arm (Geoffrey k) Given 06/29/2025 12:25 PM EST 1 Units R ight Lower Abdomen insulin lispro (Admelog) injection - Correction - Nighttime Dose 0-3 Units, Subcutaneous, 2 times nightly (2100 & 0300), First dose on Wed06/29/25 at 2100, Until Discontinued, Routine insulin regular (HumuLIN R,NovoLIN R) 100 units/mL injection - Correction - Standard Dose 0-5 Units, Subcutaneous, Every 6 hours scheduled, First dose on Wed06/28/25 at 1200, Until Discontinued, Routine Given 06/28/2025 5:21 PM EST 1 Units Right Upper Arm (Back) iohexol (OMNIPaque) 9 MG/ML oral contrast 500 mL 500 mL, Oral, Once in imaging, 1 dose, Starting on Wed06/27/25 at 1357, Until Wed06/27/25 at 1448, Routine, Imaging Protocol Orders Given 06/27/2025 2:48 PM EST 500 mL lactated Ringer's bolus 1,000 mL 1,000 mL, Intravenous, Once, 1 dose, On Wed06/26/25 at 0005, Administer over 2 Hours, STAT New Bag 06/26/2025 12:46 AM EST 1,000 mL 500 mL/hr lactated Ringer's infusion 100 mL/hr, Intravenous, Continuous, Starting on Wed06/26/25 at 0005, Until Wed06/26/25 at 0819, Routine Rate/Dose Verify 06/26/2025 6:17 AM EST 100 mL/hr 100 mL/hr Rate/Dose Verify 06/26/2025 3:25 AM EST 100 mL/hr 100 mL/ hr New Bag 06/26/2025 12:47 AM EST 100 mL/hr 100 mL/hr lactulose (Chronulac) 10 GM/15ML solution 10 g 10 g, Oral, Daily, First dose on Wed06/26/25 at 0900, Until Discontinued Given 06/27/2025 9:56 AM EST 10 g Given 06/26/2025 9:00 AM EST 10 g lactulose (Chronulac) 10 GM/15ML solution 10 g 10 g, Oral, 3 times daily, First dose (after last modification) on Wed06/27/25 at 1400, Until Discontinued Given 06/27/2025 2:46 PM EST 10 g lactulose (Chronulac) 10 GM/15ML solution 20 g 20 g, Oral, 3 times daily, First dose (after last modification) on Wed06/30/25 at 0915, Until Discontinued, Routine Given 07/02/2025 8:13 AM EST 20 g Given 07/01/2025 8:38 PM EST 20 g Given 07/01/2025 3:05 PM EST 20 g lactulose (Chronulac) 10 GM/15ML solution 30 g 30 g, Oral, 3 times daily, First dose (after last modification) on Wed06/27/25 at 1830, Until Discontinued Given 06/27/2025 6:59 PM EST 30 g lactulose (Chronulac) 10 GM/15ML solution 30 g 30 g, Oral, 3 times daily, First dose (after last modification) on Wed07/02/25 at 1600, Until Discontinued, Routine lactulose (Chronulac) 200 g/L rectal enema 200 g 200 g, Rectal, Once, 1 dose, On Wed06/27/25 at 2215, Administer over 60 Minutes, Routine Given 06/28/2025 6:46 AM EST 200 g lactulose (Chronulac) 200 g/L rectal enema 200 g 200 g, Rectal, Once, 1 dose, On Wed06/29/25 at 1800, Administer over 60 Minutes, Routine Given 06/29/2025 6:42 PM EST 200 g magnesium oxide (Mag-Ox) tablet 400 mg 400 mg, Oral, 2 times daily, First dose on Wed06/26/25 at 0005, Until Discontinued, Routine Given 07/02/2025 8:13 AM EST 400 mg Given 07/01/2025 8:37 PM EST 400 mg Given 07/01/2025 9:14 AM EST 400 mg metoprolol succinate XL (Toprol-XL) 24 hr tablet 25 mg 25 mg, Oral, Every morning, First dose on Wed06/30/25 at 0600, Until Discontinued, Routine Given 07/02/2025 8:1 9 AM EST 25 mg Given 07/01/2025 10:13 AM EST 25 mg Given 06/30/2025 9:15 AM EST 25 mg oxyCODONE (Roxicodone) immediate release tablet 10 mg 10 mg, Oral, Every 4 hours PRN, Starting on Kirstin 06/28/25 at 0809, Until 06/30/25 at 0958, Routine, Moderate Severe Pain with CPOT score of 3 or greater OR FLACC PAINAD NPASS NRS Gil-Fuentes Faces score of 4 or greater OR DVPRS NIPS score of 5 or greater Given 06/29/2025 8:51 PM EST 10 mg Given 06/28/2025 5:42 PM EST 10 mg oxyCODONE (Roxicodone) immediate release tablet 5 mg 5 mg, Oral, Every 6 hours PRN, Starting on 06/25/25 at 2348, Until Kirstin 06/28/25 at 0809, Routine, Moderate Severe Pain with CPOT score of 3 or greater OR FLACC PAINAD NPASS NRS Gil-Fuentes Faces score of 4 or greater OR DVPRS NIPS score of 5 or greater Given 06/27/2025 8:54 PM EST 5 mg Given 06/27/2025 11:42 AM EST 5 mg Given 06/27/2025 5:43 AM EST 5 mg oxyCODONE (Roxicodone) immediate release tablet 5 mg 5 mg, Oral, Every 4 hours PRN, Starting on Kirstin 06/28/25 at 0809, Until 06/30/25 at 0958, Routine, Moderate Severe Pain with CPOT score of 3 or greater OR FLACC PAINAD NPASS NRS Gil-Fuentes Faces score of 4 or greater OR DVPRS NIPS score of 5 or greater Given 06/30/2025 9:20 AM EST 5 mg Given 06/28/2025 10:08 PM EST 5 mg Given 06/28/2025 9:31 AM EST 5 mg oxyCODONE (Roxicodone) immediate release tablet 7.5 mg 7.5 mg, Oral, Every 4 hours PRN, Starting on 06/30/25 at 0958, Until 07/02/25 at 1530, Routine, Moderate Severe Pain with CPOT score of 3 or greater OR FLACC PAINAD NPASS NRS Gil-Fuentes Faces score of 4 or greater OR DVPRS NIPS score of 5 or greater Given 07/01/2025 9:13 AM EST 7.5 mg Given 06/30/2025 9:01 PM EST 7.5 mg Given 06/30/2025 3:47 PM EST 7.5 mg pantoprazole (Protonix) EC tablet 40 mg 40 mg, Oral, Daily, First dose on Wed06/26/25 at 0900, Until Discontinued Given 07/02/2025 8:13 AM EST 40 mg Given 07/01/2025 9:13 AM EST 40 mg Given 06/30/2025 9:15 AM EST 40 mg piperacillin-tazobactam (Zosyn) 4.5 g in sodium chloride 0.9% 100 mL IVPB (vial adapter required) 4.5 g, Intravenous, Every 6 hours, First dose on Wed06/27/25 at 2230, Until Discontinued, Routine Rate/Dose Verify 06/29/2025 6:39 AM EST 36.7 mL/hr New Bag 06/29/2025 4:09 AM EST 4.5 g 36.7 mL/hr Restarted 06/29/2025 12:15 AM EST 36.7 mL/hr pregabalin (Lyrica) capsule 25 mg 25 mg, Oral, Nightly, First dose on Wed06/29/25 at 2100, Until Discontinued, Routine Given 07/01/2025 8:3 7 PM EST 25 mg Given 06/30/2025 9:01 PM EST 25 mg Given 06/29/2025 8:31 PM EST 25 mg prochlorperazine (Compazine) injection 2.5 mg 2.5 mg, Intravenous, Every 6 hours PRN, Starting on Wed06/25/25 at 2359, Until Wed07/02/25 at 1530, Routine, nausea, vomiting prochlorperazine (Compazine) tablet 5 mg 5 mg, Oral, Every 6 hours PRN, Starting on Wed06/25/25 at 2359, Until Wed07/02/25 at 1530, Routine, nausea, vomiting rifAXIMin (Xifaxan) tablet 550 mg 550 mg, Oral, 2 times daily, First dose on Wed06/26/25 at 0005, Until Discontinued, RoutineIndications:Encephalopathy, hepatic (CMS/HCC) Given 07/02/2025 8:13 AM EST 550 mg Given 07/01/2025 8:38 PM EST 550 mg Given 07/01/2025 9:13 AM EST 550 mg rOPINIRole (Requip) tablet 1 mg 1 mg, Oral, 4 times daily PRN, Starting on Wed06/25/25 at 2349, Until 06/30/25 at 1113, Routine, restless legIndications:Restless Leg Syndrome Given 06/29/2025 8:51 PM EST 1 mg Given 06/28/2025 5:42 PM EST 1 mg Given 06/27/2025 8:54 PM EST 1 mg rOPINIRole (Requip) tablet 2 mg 2 mg, Oral, Nightly, First dose (after last modification) on Wed06/30/25 at 2100, Until Discontinued, RoutineIndications:Restless Leg Syndrome Given 07/01/2025 8:37 PM EST 2 mg Given 06/30/2025 9:02 PM EST 2 mg senna (Senokot) tablet 17.2 mg 17.2 mg, Oral, Nightly, First dose on Wed06/27/25 at 2215, Until Discontinued, Routine Given 07/01/2025 8:37 PM EST 17.2 mg Given 06/30/2025 9:01 PM EST 17.2 mg Given 06/29/2025 8:29 PM EST 17.2 mg sodium chloride 0.9 % flush 10 mL 10 mL, Intravenous, Every 12 hours, First dose on Wed06/26/25 at 0005, Until Discontinued, Routine Given 07/01/2025 8:38 PM EST 10 mL Given 07/01/2025 11:32 AM EST 10 mL Given 06/30/2025 9:08 PM EST 10 mL sodium chloride 0.9 % flush 10 mL 10 mL, Intravenous, As needed, Starting on Wed06/25/25 at 2351, Until Wed07/02/25 at 1530, Routine, line care sodium chloride 0.9 % infusion 10 mL/hr, Intravenous, Continuous, Starting on Kirstin 06/28/25 at 1030, Until Wed06/29/25 at 1450, Routine Rate/Dose Verify 06/29/2025 12:59 PM EST 10 mL/hr Restarted 06/29/2025 12:58 PM EST 10 mL/hr Restarted 06/29/2025 10:51 AM EST 10 mL/hr spironolactone (Aldactone) tablet 100 mg 100 mg, Oral, Daily, First dose on Wed06/30/25 at 0915, Until Discontinued, Routine Given 07/02/2025 8:1 3 AM EST 100 mg Given 07/01/2025 9:13 AM EST 100 mg Given 06/30/2025 9:15 AM EST 100 mg valACYclovir (Valtrex) tablet 500 mg 500 mg, Oral, Every morning, First dose on Wed06/26/25 at 0600, Until Discontinued, Routine Given 07/02/2025 6:29 AM EST 500 mg Given 07/01/2025 5:55 AM EST 500 mg Given 06/30/2025 5:22 AM EST 500 mg zinc sulfate (Zincate) capsule 220 mg 220 mg, Oral, 2 times daily, First dose on Wed06/26/25 at 0005, Until Discontinued, RoutineIndications:End-stage liver disease (CMS/HCC) Given 07/02/2025 8:13 AM EST 220 mg Given 07/01/2025 8:37 PM EST 220 mg Given 07/01/2025 9:13 AM EST 220 mg documented in this encounter Active and Recently Administered Medications Times are shown in EST. Scheduled Medication Order 06/30/2025 07/01/2025 07/02/2025 bumetanide (Bumex) tablet 2 mg (CANCELED) 2 mg, Oral, Daily, First dose (after last modification) on 06/30/25 at 0900, Until Discontinued, Routine 914 (Given - Provider: Nela Lebron RN) 0914 (Given - Provider: Aixa Bolanos RN) bumetanide (Bumex) tablet 2 mg 2 mg, Oral, 2 times daily (0900 & 1500), First dose (after last modification) on Wed07/01/25 at 1600, Until Discontinued, Routine 154 (Given - Provider: Aixa Bolanos RN) 0813 (Given - Provider: Nela Lebron RN)1500 (Canceled Entry - Provider: Automatic Discharge Provider - Comment: Automatically canceled at discontinue of medication order) busPIRone (Buspar) tablet 7.5 mg 7.5 mg, Oral, 2 times daily, First dose on Wed06/26/25 at 0005, Until Discontinued 914 (Given - Provider: Nela Lebron RN)2101 (Given - Provider: Estelle Nguyen RN) 09 (Given - Provider: Aixa Bolanos RN)2037 (Given - Provider: Estelle Nguyen RN) 0812 (Given - Provider: Nela Lebron RN) desvenlafaxine (Pristiq) 24 hr tablet 50 mg 50 mg, Oral, Daily, First dose on Wed06/26/25 at 0900, Until Discontinued, Routine 2107 (Given - Provider: Estelle Nguyen RN) 2037 (Given - Provider: Estelle Nguyen RN) ferrous sulfate EC tablet 324 mg 324 mg, Oral, Daily with breakfast, First dose on Wed06/26/25 at 0800, Until Discontinued 2101 (Given - Provider: Estelle Nguyen RN) 2037 (Given - Provider: Estelle Nguyen RN) insulin lispro (Admelog) 100 units/mL injection - Correction - Standard Dose 0-5 Units, Subcutaneous, 3 times daily with meals, First dose on Wed06/29/25 at 0845, Until Discontinued, Routine 0844 (Not Given - Provider: Nela Lebron RN - Reason: Order parameters not met)1207 (Given - Provider: Nela Lebron RN)1705 (Not Given - Provider: Nela Lebron RN - Reason: Order parameters not met) 0800 (Not Given - Provider: Aixa Bolanos RN - Reason: Order parameters not met)1320 (Not Given - Provider: Aixa Bolanos RN - Reason: Order parameters not met)1637 (Not Given - Provider: Aixa Bolanos RN - Reason: Order parameters not met) 0810 (Not Given - Provider: Nela Lebron RN - Reason: Order parameters not met)1214 (Not Given - Provider: Nela Lebron RN - Reason: Order parameters not met) insulin lispro (Admelog) injection - Correction - Nighttime Dose 0-3 Units, Subcutaneous, 2 times nightly (2100 & 0300), First dose on Wed06/29/25 at 2100, Until Discontinued, Routine 213 (Not Given - Provider: Estelle Nguyen RN - Reason: Order parameters not met)2051 (Not Given - Provider: Estelle Nguyen RN - Reason: Order parameters not met) 202 (Not Given - Provider: Estelle Nguyen RN - Reason: Order parameters not met)2026 (Not Given - Provider: Estelle Nguyen RN - Reason: Order parameters not met) 0235 (Not Given - Provider: Estelle Nguyen RN - Reason: Order parameters not met) lactulose (Chronulac) 10 GM/15ML solution 20 g (CANCELED) 20 g, Oral, 3 times daily, First dose (after last modification) on Wed06/30/25 at 0915, Until Discontinued, Routine 0915 (Given - Provider: Nela Lebron RN)1548 (Given - Provider: Nela Lebron RN)210 (Given - Provider: Estelle Nguyen RN) 09 (Given - Provider: Aixa Bolanos RN)1505 (Given - Provider: Aixa Bolanos RN)203 (Given - Provider: Estelle Nguyen RN) 08 (Given - Provider: Nela Lebron RN) lactulose (Chronulac) 10 GM/15ML solution 30 g 30 g, Oral, 3 times daily, First dose (after last modification) on Wed07/02/25 at 1600, Until Discontinued, Routine magnesium oxide (Mag-Ox) tablet 400 mg 400 mg, Oral, 2 times daily, First dose on Wed06/26/25 at 0005, Until Discontinued, Routine 0915 (Given - Provider: Nela Lebron RN)210 (Given - Provider: Estelle Nguyen RN) 0914 (Given - Provider: Aixa Bolanos RN)2036 (Given - Provider: Estelle Nguyen RN) 08 (Given - Provider: Nela Lebron RN) metoprolol succinate XL (Toprol-XL) 24 hr tablet 25 mg 25 mg, Oral, Every morning, First dose on Wed06/30/25 at 0600, Until Discontinued, Routine 0915 (Given - Provider: Nela Lebron RN) 1013 (Given - Provider: Aixa Bolanos RN) 0819 (Given - Provider: Nela Lebron RN) pantoprazole (Protonix) EC tablet 40 mg 40 mg, Oral, Daily, First dose on Wed06/26/25 at 0900, Until Discontinued 0915 (Given - Provider: Nela Lebron RN) 0913 (Given - Provider: Aixa Bolanos RN) 08 (Given - Provider: Nela Lebron RN) pregabalin (Lyrica) capsule 25 mg 25 mg, Oral, Nightly, First dose on Wed06/29/25 at 2100, Until Discontinued, Routine 2100 (Given - Provider: Estelle Nguyen RN) 2036 (Given - Provider: Estelle Nguyen RN) rifAXIMin (Xifaxan) tablet 550 mg 550 mg, Oral, 2 times daily, First dose on Wed06/26/25 at 0005, Until Discontinued, Routine 09 (Given - Provider: Nela Lebron RN)2100 (Given - Provider: Estelle Nguyen RN) 912 (Given - Provider: Aixa Bolanos RN)2037 (Given - Provider: Estelle Nguyen RN) 08 (Given - Provider: Nela Lebron RN) rOPINIRole (Requip) tablet 2 mg 2 mg, Oral, Nightly, First dose (after last modification) on Wed06/30/25 at 2100, Until Discontinued, Routine 2101 (Given - Provider: Estelle Nguyen RN) 2036 (Given - Provider: Estelle Nguyen RN) senna (Senokot) tablet 17.2 mg 17.2 mg, Oral, Nightly, First dose on Wed06/27/25 at 2215, Until Discontinued, Routine 2100 (Given - Provider: Estelle Nguyen RN) 2036 (Given - Provider: Estelle Nguyen RN) sodium chloride 0.9 % flush 10 mL(Linked Group 1) 10 mL, Intravenous, Every 12 hours, First dose on Wed06/26/25 at 0005, Until Discontinued, Routine 1207 (Given - Provider: Nela Lebron RN)2107 (Given - Provider: Estelle Nguyen RN) 1132 (Given - Provider: Aixa Bolanos RN)2037 (Given - Provider: Estelle Nguyen RN) 1214 (Canceled Entry - Provider: Nela Lebron RN) spironolactone (Aldactone) tablet 100 mg 100 mg, Oral, Daily, First dose on Wed06/30/25 at 0915, Until Discontinued, Routine 0915 (Given - Provider: Nela Lebron RN) 09 (Given - Provider: Aixa Bolanos RN) 08 (Given - Provider: Nela Lebron RN) valACYclovir (Valtrex) tablet 500 mg 500 mg, Oral, Every morning, First dose on Wed06/26/25 at 0600, Until Discontinued, Routine 0522 (Given - Provider: Estelle Nguyen RN) 0555 (Given - Provider: Estelle Nguyen RN) 06 (Given - Provider: Estelle Nguyen RN) zinc sulfate (Zincate) capsule 220 mg 220 mg, Oral, 2 times daily, First dose on Wed06/26/25 at 0005, Until Discontinued, Routine 914 (Given - Provider: Nela Lebron RN)2100 (Given - Provider: Estelle Nguyen RN) 09 (Given - Provider: Aixa Bolanos, RN)2036 (Given - Provider: Estelle Nguyen RN) 08 (Given - Provider: Nela Lebron RN) PRN Medication Order 06/30/2025 07/01/2025 07/02/2025 acetaminophen (Tylenol) tablet 500 mg 500 mg, Oral, Every 8 hours PRN, Starting on Wed06/25/25 at 2358, Until Wed07/02/25 at 1530, Routine, Mild Plus Pain with CPOT DVPRS FLACC PAINAD NPASS NRS Gil-Fuentes Faces score of 1 or greater OR NIPS score 2 or greater, Moderate Severe Pain with CPOT score of 3 or greater OR FLACC PAINAD NPASS NRS Gil-Fuentes Faces score of 4 or greater OR DVPRS NIPS score of 5 or greater, headaches, fever, fever > 100.4 0920 (Given - Provider: Nela Lebron RN) 0913 (Given - Provider: Aixa Bolanos RN) 0819 (Given - Provider: Nela Lebron RN) cyclobenzaprine (Flexeril) tablet 10 mg 10 mg, Oral, 3 times daily PRN, Starting on Wed06/25/25 at 2346, Until Wed07/02/25 at 1530, muscle spasms 1548 (Given - Provider: Nela Lebron RN) 1505 (Given - Provider: Aixa Bolanos RN) dextrose 10 % (D10W) bolus 125 mL(Linked Group 2) 125 mL, Intravenous, Every 15 min PRN, Starting on Wed06/25/25 at 2357, Until Wed07/02/25 at 1530, Administer over 15 Minutes, Routine, low blood sugar BG 51-89 mg/dL dextrose 10 % (D10W) bolus 250 mL(Linked Group 2) 250 mL, Intravenous, Every 15 min PRN, Starting on Wed06/25/25 at 2357, Until Wed07/02/25 at 1530, Administer over 15 Minutes, Routine, PRN low blood sugar BG =/<50 mg/dL diclofenac (Voltaren) 1 % topical gel 2 g 2 g, Topical, 4 times daily PRN, Starting on Wed06/25/25 at 2347, Until Wed07/02/25 at 1530, Routine, joint pain glucagon (human recombinant) injection 1 mg(Linked Group 2) 1 mg, Intramuscular, Every 15 min PRN, Starting on Wed06/25/25 at 2357, Until Wed07/02/25 at 1530, Routine, low blood sugar per Hypoglycemia Prevention and Treatment protocol glucose (Glutose) 40 % oral gel 15-30 grams of glucose(Linked Group 2) 15-30 grams of glucose, Sublingual, Every 15 min PRN, Starting on Wed06/25/25 at 2357, Until Wed07/02/25 at 1530, Routine, low blood sugar, per Hypoglycemia Prevention and Treatment protocol hydrOXYzine pamoate (Vistaril) capsule 25 mg 25 mg, Oral, 2 times daily PRN, Starting on Wed06/27/25 at 1936, Until Wed07/02/25 at 1530, Routine, anxiety 0227 (Given - Provider: Estelle Nguyen RN)2101 (Given - Provider: Estelle Nguyen RN) 0913 (Given - Provider: Aixa Bolanos RN)1505 (Given - Provider: Aixa Bolanos RN) oxyCODONE (Roxicodone) immediate release tablet 5 mg (CANCELED) 5 mg, Oral, Every 4 hours PRN, Starting on Kirstin 06/28/25 at 0809, Until 06/30/25 at 0958, Routine, Moderate Severe Pain with CPOT score of 3 or greater OR FLACC PAINAD NPASS NRS Gil-Fuentes Faces score of 4 or greater OR DVPRS NIPS score of 5 or greater 0920 (Given - Provider: Nela Lebron RN) oxyCODONE (Roxicodone) immediate release tablet 7.5 mg(Linked Group 3) 7.5 mg, Oral, Every 4 hours PRN, Starting on Wed06/30/25 at 0958, Until Wed07/02/25 at 1530, Routine, Moderate Severe Pain with CPOT score of 3 or greater OR FLACC PAINAD NPASS NRS Gil-Fuentes Faces score of 4 or greater OR DVPRS NIPS score of 5 or greater 1547 (Given - Provider: Nela Lebron, CORWIN)2100 (Given - Provider: Estelle Nguyen RN) 912 (Given - Provider: Aixa Bolanos RN)2046 [facility]: Estelle Nguyen RN) prochlorperazine (Compazine) injection 2.5 mg(Linked Group 4) 2.5 mg, Intravenous, Every 6 hours PRN, Starting on Wed06/25/25 at 2359, Until Wed07/02/25 at 1530, Routine, nausea, vomiting prochlorperazine (Compazine) tablet 5 mg(Linked Group 4) 5 mg, Oral, Every 6 hours PRN, Starting on Wed06/25/25 at 2359, Until Wed07/02/25 at 1530, Routine, nausea, vomiting sodium chloride 0.9 % flush 10 mL(Linked Group 1) 10 mL, Intravenous, As needed, Starting on Wed06/25/25 at 2351, Until Wed07/02/25 at 1530, Routine, line care Linked Groups Order Group 1: Insert peripheral IV (COMPLETED) Once, On Wed06/25/25 at 2352, For 1 occurrence And Saline lock IV (COMPLETED) Once, On Wed06/25/25 at 2352, For 1 occurrence And sodium chloride 0.9 % flush 10 mLJump to med 10 mL, Intravenous, Every 12 hours, First dose on Wed06/26/25 at 0005, Until Discontinued, Routine And sodium chloride 0.9 % flush 10 mLJump to med 10 mL, Intravenous, As needed, Starting on Wed06/25/25 at 2351, Until Wed07/02/25 at 1530, Routine, line care Group 2: glucose (Glutose) 40 % oral gel 15-30 grams of glucoseJump to med 15-30 grams of glucose, Sublingual, Every 15 min PRN, Starting on Wed06/25/25 at 2357, Until Wed07/02/25 at 1530, Routine, low blood sugar, per Hypoglycemia Prevention and Treatment protocol Or dextrose 10 % (D10W) bolus 125 mLJump to med 125 mL, Intravenous, Every 15 min PRN, Starting on Wed06/25/25 at 2357, Until Wed07/02/25 at 1530, Administer over 15 Minutes, Routine, low blood sugar BG 51-89 mg/dL Or dextrose 10 % (D10W) bolus 250 mLJump to med 250 mL, Intravenous, Every 15 min PRN, Starting on Wed06/25/25 at 2357, Until Wed07/02/25 at 1530, Administer over 15 Minutes, Routine, PRN low blood sugar BG =/<50 mg/dL Or glucagon (human recombinant) injection 1 mgJump to med 1 mg, Intramuscular, Every 15 min PRN, Starting on Wed06/25/25 at 2357, Until Wed07/02/25 at 1530, Routine, low blood sugar per Hypoglycemia Prevention and Treatment protocol Group 3: oxyCODONE (Roxicodone) immediate release tablet 7.5 mgJump to med 7.5 mg, Oral, Every 4 hours PRN, Starting on 06/30/25 at 0958, Until Wed07/02/25 at 1530, Routine, Moderate Severe Pain with CPOT score of 3 or greater OR FLACC PAINAD NPASS NRS Igl-Fuentes Faces score of 4 or greater OR DVPRS NIPS score of 5 or greater Group 4: prochlorperazine (Compazine) tablet 5 mgJump to med 5 mg, Oral, Every 6 hours PRN, Starting on Wed06/25/25 at 2359, Until Wed07/02/25 at 1530, Routine, nausea, vomiting Or prochlorperazine (Compazine) injection 2.5 mgJump to med 2.5 mg, Intravenous, Every 6 hours PRN, Starting on Wed06/25/25 at 2359, Until Wed07/02/25 at 1530, Routine, nausea, vomiting documented in this encounter [...] documented as of this encounter Care Teams General Foreman Relationship Specialty [place] [id number] PCP - General 06/04/25 Mc Grant Referring Physician Gastroenterology 02/21/24 El Agarwal APRN [id number] Referring Physician Gastroenterology 03/21/25 Cely Diaz, RN [employer] [place], [place] [employer] Installer 05/28/25 documented as of this encounter
[2025-07-07 18:38] VITALS: BP 132/87; PULSE 106; RESP 18; TEMP 37.2; O2SAT 97; BMI 33.7
--- NOTE | 2025-07-07 18:46 | CT_ITS ---
PROCEDURE INFORMATION: Exam: CT Abdomen And Pelvis With Contrast Exam date and time: 07/07/2025 7:20 PM Age: 54 years old Clinical indication: Abdominal pain TECHNIQUE: Imaging protocol: Computed tomography of the abdomen and pelvis with contrast. Radiation optimization: All CT scans at this facility use at least one of these dose optimization techniques: automated exposure control; mA and/or kV adjustment per patient size (includes targeted exams where dose is matched to clinical indication); or iterative reconstruction. Contrast material: ISOVUE; Contrast volume: 75 ml; Contrast route: IV; COMPARISON: CT ABDOMEN PELVIS W CON 05/23/2025 11:53 PM FINDINGS: Lungs: The visualized lung bases demonstrate no focal infiltrates or pleural effusions. Liver: Severe cirrhosis. Gallbladder and biliary ducts: There has been a cholecystectomy. Pancreas: Normal. No ductal dilation. Spleen: Severe splenomegaly. Adrenal glands: The adrenal glands appear within normal limits. Kidneys and ureters: 1 mm nonobstructing stone left kidney lower pole. Stomach and bowel: Unremarkable. No obstruction. No mucosal thickening. Appendix: No evidence of appendicitis. Intraperitoneal space: Large volume ascites. Vasculature: Changes of portal hypertension. Lymph nodes: Unremarkable. No pathologically enlarged lymph nodes are identified. Urinary bladder: The bladder appears within normal limits. No wall thickening. Reproductive: There has been a hysterectomy. Bones/joints: The regional skeletal structures appear within normal limits for age. Soft tissues: Moderate diffuse anasarca. IMPRESSION: 1. Severe cirrhosis. 2. Severe splenomegaly. 3. Changes of portal hypertension. 4. 1 mm nonobstructing stone left kidney lower pole. 5. Large volume ascites. 6. Moderate diffuse anasarca.
--- NOTE | 2025-07-07 18:48 | HMH.EDGENADL ---
Discharge Plan Disposition Chief Complaint: Abdominal Pain Prescriptions Prescriptions: No Action bumetanide 2 mg tablet 2 mg PO BID Qty: 60 5RF metoprolol succinate 50 mg tablet extended release 24 hr 50 mg PO DAILY Qty: 90 3RF pregabalin 25 mg capsule 25 mg PO BID Qty: 60 5RF lansoprazole 30 mg capsule,delayed release(DR/EC) 30 mg PO DAILY Qty: 90 3RF lisinopril 2.5 mg tablet 2.5 mg PO DAILY Qty: 90 3RF magnesium oxide 400 mg magnesium tablet 400 mg PO BID Qty: 180 3RF buspirone 7.5 mg tablet 7.5 mg PO BID Qty: 180 3RF zinc sulfate 50 mg zinc (220 mg) capsule 50 mg PO DAILY Qty: 90 3RF desvenlafaxine succinate 50 mg tablet extended release 24 hr 50 mg PO DAILY Qty: 90 3RF ferrous sulfate [FeroSul] 325 mg (65 mg iron) tablet 325 mg PO DAILY Qty: 90 3RF (DME) FreeStyle Lite Strips Strip See Rx Instructions .ROUTE .MEDSUPPLY Qty: 10 Rx Instructions: As directed ondansetron 8 mg tablet,disintegrating PO promethazine 25 mg tablet PO (DME) Dexcom G7 Sensor Device See Rx Instructions .ROUTE .MEDSUPPLY Qty: 1 Rx Instructions: As directed (DME) insulin syringe-needle U-100 [Ultra-Fine Insulin Syringe] 1 mL 31 gauge x 15/64 syringe See Rx Instructions .ROUTE .MEDSUPPLY Qty: 10 Rx Instructions: As directed (DME) lancets [FreeStyle Lancets] 28 gauge misc See Rx Instructions .ROUTE .MEDSUPPLY Qty: 100 Rx Instructions: As directed cyclobenzaprine 10 mg tablet 10 mg PO HS diclofenac sodium 1 % gel topical QID PRN ergocalciferol (vitamin D2) 1,250 mcg (50,000 unit) capsule 1,250 mcg PO QWEEK insulin aspart U-100 100 unit/mL (3 mL) insulin pen 1 sliding scale dose SQ TID Jardiance 25 mg tablet PO DAILY lactulose 10 gram/15 mL solution 15 ml PO DAILY oxycodone 5 mg tablet 5 mg PO Q4-6H Ozempic 1 mg/dose (4 mg/3 mL) pen injector 1 mg SQ QWEEK Xifaxan 550 mg tablet 550 mg PO BID ropinirole 1 mg tablet 1 mg PO QID spironolactone 100 mg tablet 200 mg PO QAM valacyclovir 1 gram tablet 500 mg PO DAILY simvastatin 20 mg tablet 20 mg PO DAILY Referrals Follow up/Referrals: Jesus Luis MD [Primary Care Provider, Family Practice] - See instructions Instructions Patient Instructions: DI for Acute Abdominal Pain Print Language Print Language: Lithuanian Discharge ED Provider: Eduardo Hanley General Adult HPI <Susana Feng (ED), ARMATURE CO[employer] WINDER - Last Filed: 07/07/25 21:04> General Chief complaint: Abdominal Pain Stated complaint: Abdominal Pain Time Seen by Provider: 07/07/25 18:35 Mode of Arrival: EMS Source of Information: Patient and EMS Description of Symptoms (Recalled from ER Triage Doc. by RN): PATIENT PRESENTS TO ED FOR DIFFUSE ABDOMINAL PAIN SINCE 0 TODAY. PT HAS NON-ALCOHOLIC CIRRHOSIS OF THE LIVER, IS BEING WORKED UP FOR POSSIBLE LIVER TRANSPLANT AT [facility]. PT C/O 9/10 PAIN FOR EMS, RECEIVED 100 MCG FENTANYL EN ROUTE AND CAME DOWN TO 5.5, BACK UP AT 7/10. History of Present Illness HPI narrative: 54-year-old female presents to the ED today with complaint of abdominal pain that is a 9 out of 10. She says she took the lactulose this morning had 11 bowel movements that were large and liquid throughout the day and then started abdominal pain at 1630. She says that she had a discharge from [facility] hospital on Wednesday. They had changed all of her medications added ferrous sulfate, lactulose changed metoprolol and Lyrica and Requip and then changed her Aldactone. She was doing well until this afternoon when her abdomen started hurting worse. Patient told me that on her CT scan at it showed colitis and a air and they were going to do a ostomy but they decided not to and send her home on Wednesday. She denies fevers. Related Data Home Medications ?Medication ?Instructions ?Recorded ?Confirmed blood sugar diagnostic (FreeStyle #10 ea 05/02/25 06/14/25 Lite Strips) blood-glucose sensor (Dexcom G7 #1 ea 05/02/25 06/14/25 Sensor device) insulin syringe-needle U-100 1 mL #10 ea 05/02/25 06/14/25 31 gauge x 15/64 (Ultra-Fine Insulin Syringe) lancets 28 gauge (FreeStyle #100 ea 05/02/25 06/14/25 Lancets) ondansetron 8 mg disintegrating mg PO 05/02/25 06/14/25 tablet promethazine 25 mg tablet mg PO 05/02/25 06/14/25 cyclobenzaprine 10 mg tablet 10 mg PO HS 06/01/25 06/14/25 diclofenac sodium 1 % topical gel topical QID PRN 06/01/25 06/14/25 empagliflozin 25 mg tablet mg PO DAILY 06/01/25 06/14/25 (Jardiance) ergocalciferol (vitamin D2) 1,250 1,250 mcg PO QWEEK 06/01/25 06/14/25 mcg (50,000 unit) capsule insulin aspart U-100 100 unit/mL 1 sliding scale dose SQ TID 06/01/25 06/14/25 (3 mL) subcutaneous pen lactulose 10 gram/15 mL oral 15 ml PO DAILY 06/01/25 06/14/25 solution oxycodone 5 mg tablet 5 mg PO Q4-6H 06/01/25 06/14/25 rifaximin 550 mg tablet (Xifaxan) 550 mg PO BID 06/01/25 06/14/25 ropinirole 1 mg tablet 1 mg PO QID 06/01/25 06/14/25 semaglutide 1 mg/dose (4 mg/3 mL) 1 mg SQ QWEEK 06/01/25 06/14/25 subcutaneous pen injector (Ozempic) simvastatin 20 mg tablet 20 mg PO DAILY 06/01/25 06/14/25 spironolactone 100 mg tablet 200 mg PO QAM 06/01/25 06/14/25 valacyclovir 1 gram tablet 500 mg PO DAILY 06/01/25 06/14/25 Previous Rx's ?Medication ?Instructions ?Recorded bumetanide 2 mg tablet 2 mg PO BID #60 tabs 06/01/25 buspirone 7.5 mg tablet 7.5 mg PO BID #180 tabs 06/01/25 desvenlafaxine succinate 50 mg 50 mg PO DAILY #90 tabs 06/01/25 tablet,extended release 24 hr ferrous sulfate 325 mg (65 mg 325 mg PO DAILY #90 tabs 06/01/25 iron) tablet (FeroSul) lansoprazole 30 mg capsule,delayed 30 mg PO DAILY #90 caps 06/01/25 release lisinopril 2.5 mg tablet 2.5 mg PO DAILY #90 tabs 06/01/25 magnesium oxide 400 mg PO BID #180 tabs 06/01/25 metoprolol succinate 50 mg 50 mg PO DAILY #90 tabs 06/01/25 tablet,extended release 24 hr pregabalin 25 mg capsule 25 mg PO BID #60 caps 06/01/25 zinc sulfate 50 mg zinc (220 mg) 50 mg PO DAILY #90 caps 06/01/25 capsule Allergies Allergy/AdvReac Type Severity Reaction Status Date / Time povidone-iodine (From Allergy Intermediate Rash Verified 06/14/25 15:15 Betadine) Sulfa (Sulfonamide Allergy Intermediate Rash,itchin Verified 06/14/25 15:15 Antibiotics) g,burning vortioxetine (From Allergy Mild Rash Verified 06/14/25 15:15 Trintellix) surgery glue Allergy Mild Rash Uncoded 05/02/25 19:17 [facility] <Susana Feng (ED), [employer] WINDER - Last Filed: 07/07/25 21:04> [facility] Disclaimer: The information contained in this section may have been updated after the patient was seen, as this information can be updated by other users. Medical History Ascites Zinc deficiency GOOD (nonalcoholic steatohepatitis) Gastroparesis Lumbar spinal stenosis Iron deficiency Sleep apnea Lumbar radiculopathy Cervical radiculopathy Gastroesophageal reflux Thrombocytopenia CHF (congestive heart failure) Patent foramen ovale Hypertension Restless legs Anemia Diabetes mellitus type 2 in nonobese Esophageal varices Anasarca Depression Anxiety Sepsis Social History Smoking Status: Never smoker alcohol intake: never current occupational status: unemployed Travel in the last 8 weeks?: None Have you lived/traveled outside US in past 30 days?: No Contact w/someone who lives/traveled outside US past 30 days?: No Exposure to someone with infectious disease in past 14 days?: No Do you have a fever (greater than 100.4 F or 38 C)?: No Have you tested positive for COVID-19?: No Exposed to someone with COVID-19 in past 14 days?: No Do you have a sore throat?: No Do you have a cough?: No Do you have any weakness?: No Do you have any diarrhea?: No Are you experiencing any unusual bleeding?: No Do you have any muscle aches/pain?: No Do you have any abdominal pain?: No Are you experiencing loss of taste or smell?: No <Susana Feng (ED), [employer] - Last Filed: 07/07/25 21:04> ROS Obtained: Yes Systems reviewed as appropriate & no additional complaints except as documented Constitutional Constitutional: Reports as per HPI Physical Exam <Susana Feng (ED), [employer] WINDER - Last Filed: 07/07/25 21:04> General General appearance: alert and in distress Head Head exam: normocephalic Eye Eye exam: Present PERRL and EOMI ENT ENT exam: Present normal oropharynx and mucous membranes moist Neck Neck exam: Present trachea midline Respiratory Respiratory exam: Present normal lung sounds bilaterally Cardiovascular Cardiovascular exam: Present normal rhythm, tachycardia, normal heart sounds, +S1 and +S2 Abdominal Exam Abdominal exam: Present soft, distention, tenderness and ascites Extremities Exam Extremities exam: Present normal inspection, full ROM and normal capillary refill Neurological Exam Neurological exam: Present alert and oriented X3 Skin Skin exam: Present warm and dry Medical Decision Making <Susana Feng (ED), [employer] W[employer]ER - Last Filed: 07/07/25 21:04> Medical Records Screening: Per USPSTF and CDC recommendations, given the prevalence of disease in our region, it is our hospital?s policy to screen for HIV and viral Hepatitis for all patients aged 18 and over and those with ongoing risk factors. Yohan Inquiry Pt receiving controlled substance: No Yohan was queried for this patient: No Vital Signs: 07/07/25 18:38 07/07/25 18:38 Temperature 98.9 F 98.9 F Temperature Source Oral Pulse Rate 106 H Pulse Rate [Right] 106 H Respiratory Rate 18 18 Blood Pressure 132/87 Blood Pressure [Right Arm] 132/87 Blood Pressure Mean [Right Arm] 102 02 Sat by Pulse Oximetry 97 97 Lab Data Lab Results 07/07/25 18:18: WBC 5.8, RBC 3.49 L, Hgb 12.6, Hct 36.3 L, MCV 104.0 H, MCH 36.1 H, MCHC 34.7, RDW 14.3, Plt Count 114 L, MPV 9.5, Neut % (Auto) 66.5, Lymph % (Auto) 22.0, Shelby % (Auto) 5.7, Eos % (Auto) 4.8, Baso % (Auto) 0.7, Neut # (Auto) 3.9, Lymph # (Auto) 1.3, Shelby # (Auto) 0.3, Eos # (Auto) 0.3, Baso # (Auto) 0.0, PT 15.3 H, INR 1.41 H, APTT 31.9 H, Sodium 137, Potassium 3.2 L, Chloride 98, Carbon Dioxide 31 H, Anion Gap 11.2, BUN 15, Creatinine 1.10 H, Estimated Creat Clear 82, Estimated GFR 52 L, Est GFR ( Amer) 62, Glucose 144 H, Calcium 9.3, Magnesium 2.2, Total Bilirubin 4.2 H, AST 86 H, ALT 51, Alkaline Phosphatase 295 H, Troponin I < 0.01, NT-Pro-B Natriuret Pep 486 H, Total Protein 7.9, Albumin 3.8, Globulin 4.1 H, Albumin/Globulin Ratio 0.9 L, Lipase 278 07/07/25 19:09: SARS-CoV-2 (PCR) Not detected, Influenza A Untype (PCR) Not detected, Influenza Type B (PCR) Not detected 07/07/25 20:09: Ammonia < 9 L 07/07/25 18:18 07/07/25 18:18 Orders (Tests/Meds): ED MEDICATIONS Generic Name Dose Route Start Last Admin Trade Name Freq PRN Reason Stop Dose Admin Sodium Chloride 10 ml 07/07/25 19:26 07/07/25 19:27 Sodium Chloride 0.9% 10ml Syr (Rad Only) IV 08/06/25 19:25 10 ml NEEDED PRN Administration Maintain IV Site Discontinued Medications Generic Name Dose Route Start Last Admin Trade Name Freq PRN Reason Stop Dose Admin Hydromorphone HCl 1 mg 07/07/25 18:46 07/07/25 19:13 Hydromorphone 2mg/Ml Syringe IV 07/07/25 18:47 1 mg ONCE ONE Administration Hydromorphone HCl 1 mg 07/07/25 20:51 Hydromorphone 2mg/Ml Syringe IV 07/07/25 20:52 ONCE ONE Ceftriaxone Sodium 2 gm/ 100 mls @ 200 mls/hr 07/07/25 20:15 07/07/25 20:12 Sodium Chloride IV 07/07/25 20:44 200 mls/hr ONCE ONE Administration Iopamidol 75 ml 07/07/25 19:26 07/07/25 19:27 Iopamidol-370 (76%);100ml Bottle IV 07/07/25 19:27 75 ml ONCE ONE Administration Ondansetron HCl 4 mg 07/07/25 18:46 07/07/25 19:13 Ondansetron 4mg/2ml Vial IV 07/07/25 18:47 4 mg ONCE ONE Administration Potassium Chloride 60 meq 07/07/25 19:14 07/07/25 19:50 Potassium Chloride 20meq Tab PO 07/07/25 19:15 60 meq ONCE ONE Administration ORDERS Category Date Time Status CT abdomen pelvis w con Stat Cat Scan 07/07/25 18:46 Completed Chest XR -- portable [XR chest portable] Stat Exams 07/07/25 18:49 Completed POCUS Point of Care (ER Only) Stat Exams 07/07/25 19:33 Completed Ammonia Stat Lab 07/07/25 20:09 Completed BNP [NT Pro Brain Natriuretic Pep.] Stat Lab 07/07/25 18:18 Completed CBC [Complete Blood Count Auto Diff] Stat Lab 07/07/25 18:18 Completed Comprehensive Metabolic Panel Stat Lab 07/07/25 18:18 Completed Lipase Stat Lab 07/07/25 18:18 Completed Magnesium Stat Lab 07/07/25 18:18 Completed PT INR [Prothrombin Time INR] Stat Lab 07/07/25 18:18 Completed PTT [Activated Partial Thrombo Time] Stat Lab 07/07/25 18:18 Completed Rapid PCR Covid and Flu A/B Stat Lab 07/07/25 19:09 Completed Trop I [Troponin I] Stat Lab 07/07/25 18:18 Completed Troponin I Q3H Lab 07/07/25 22:00 Ordered Troponin I Q3H Lab 07/08/25 01:00 Ordered Medical Decision Narrative: patient is a 54-year-old female presenting to the emergency department for evaluation of abdominal pain. Patient is hemodynamically stable and nontoxic-appearing upon arrival, afebrile. Differential diagnosis includes S BP, ascites, paracentesis, among others. Workup will be conducted with hematologic labs, specific imaging. Initial inventions include crystalloid bolus, analgesics, antibiotics. Initial workup reviewed by me hematologic labs are remarkable for White count was 5.8, blood 12.6, 36.3 hematocrit, PT 15.3, INR 1.41, potassium was 3.2 which was replaced here in the ED, creatinine was 1.10, bili was 4.2, AST was 86 ammonia was less than 9, troponin less than 0.01, BNP was 486. Imaging shows severe cirrhosis, splenomegaly, portal hypertension, large volume ascites and diffuse anasarca. I discussed this with . I also discussed with at who agreed to accept patient to [facility]. Eduardo Hanley MD: I was consulted by the HARRY, and we discussed the complexity of the problems being addressed. I approve the treatment and management plan for this patient's care in the emergency department, thus performing a substantive portion of the medical decision making. I did perform a bedside ultrasound of the patient's abdomen to evaluate for fluid burden to possibly perform diagnostic paracentesis to rule out SBP as a source of her abdominal pain. Patient does have ascitic fluid within the abdomen, however it seems localized around the liver and very close to the urinary bladder. I do not appreciate a pocket large enough and at a safe distance unknot from these organs to safely do a bedside paracentesis. Given concern for SBP given patient's severe abdominal pain, will administer 2 g of IV Rocephin. See HARRY note for further information regarding care. <Eduardo Hanley MD - Last Filed: 07/07/25 20:43> Vital Signs: 07/07/25 18:38 07/07/25 18:38 Temperature 98.9 F 98.9 F Temperature Source Oral Pulse Rate 106 H Pulse Rate [Right] 106 H Respiratory Rate 18 18 Blood Pressure 132/87 Blood Pressure [Right Arm] 132/87 Blood Pressure Mean [Right Arm] 102 02 Sat by Pulse Oximetry 97 97 Lab Data Lab Results 07/07/25 18:18: WBC 5.8, RBC 3.49 L, Hgb 12.6, Hct 36.3 L, MCV 104.0 H, MCH 36.1 H, MCHC 34.7, RDW 14.3, Plt Count 114 L, MPV 9.5, Neut % (Auto) 66.5, Lymph % (Auto) 22.0, Shelby % (Auto) 5.7, Eos % (Auto) 4.8, Baso % (Auto) 0.7, Neut # (Auto) 3.9, Lymph # (Auto) 1.3, Shelby # (Auto) 0.3, Eos # (Auto) 0.3, Baso # (Auto) 0.0, PT 15.3 H, INR 1.41 H, APTT 31.9 H, Sodium 137, Potassium 3.2 L, Chloride 98, Carbon Dioxide 31 H, Anion Gap 11.2, BUN 15, Creatinine 1.10 H, Estimated Creat Clear 82, Estimated GFR 52 L, Est GFR ( Amer) 62, Glucose 144 H, Calcium 9.3, Magnesium 2.2, Total Bilirubin 4.2 H, AST 86 H, ALT 51, Alkaline Phosphatase 295 H, Troponin I < 0.01, NT-Pro-B Natriuret Pep 486 H, Total Protein 7.9, Albumin 3.8, Globulin 4.1 H, Albumin/Globulin Ratio 0.9 L, Lipase 278 07/07/25 19:09: SARS-CoV-2 (PCR) Not detected, Influenza A Untype (PCR) Not detected, Influenza Type B (PCR) Not detected 07/07/25 20:09: Ammonia < 9 L Orders (Tests/Meds): ED MEDICATIONS Generic Name Dose Route Start Last Admin Trade Name Freq PRN Reason Stop Dose Admin Sodium Chloride 10 ml 07/07/25 19:26 07/07/25 19:27 Sodium Chloride 0.9% 10ml Syr (Rad Only) IV 08/06/25 19:25 10 ml NEEDED PRN Administration Maintain IV Site Discontinued Medications Generic Name Dose Route Start Last Admin Trade Name Freq PRN Reason Stop Dose Admin Hydromorphone HCl 1 mg 07/07/25 18:46 07/07/25 19:13 Hydromorphone 2mg/Ml Syringe IV 07/07/25 18:47 1 mg ONCE ONE Administration Hydromorphone HCl 1 mg 07/07/25 20:51 Hydromorphone 2mg/Ml Syringe IV 07/07/25 20:52 ONCE ONE Ceftriaxone Sodium 2 gm/ 100 mls @ 200 mls/hr 07/07/25 20:15 07/07/25 20:12 Sodium Chloride IV 07/07/25 20:44 200 mls/hr ONCE ONE Administration Iopamidol 75 ml 07/07/25 19:26 07/07/25 19:27 Iopamidol-370 (76%);100ml Bottle IV 07/07/25 19:27 75 ml ONCE ONE Administration Ondansetron HCl 4 mg 07/07/25 18:46 07/07/25 19:13 Ondansetron 4mg/2ml Vial IV 07/07/25 18:47 4 mg ONCE ONE Administration Potassium Chloride 60 meq 07/07/25 19:14 07/07/25 19:50 Potassium Chloride 20meq Tab PO 07/07/25 19:15 60 meq ONCE ONE Administration ORDERS Category Date Time Status CT abdomen pelvis w con Stat Cat Scan 07/07/25 18:46 Completed Chest XR -- portable [XR chest portable] Stat Exams 07/07/25 18:49 Completed POCUS Point of Care (ER Only) Stat Exams 07/07/25 19:33 Completed Ammonia Stat Lab 07/07/25 20:09 Completed BNP [NT Pro Brain Natriuretic Pep.] Stat Lab 07/07/25 18:18 Completed CBC [Complete Blood Count Auto Diff] Stat Lab 07/07/25 18:18 Completed Comprehensive Metabolic Panel Stat Lab 07/07/25 18:18 Completed Lipase Stat Lab 07/07/25 18:18 Completed Magnesium Stat Lab 07/07/25 18:18 Completed PT INR [Prothrombin Time INR] Stat Lab 07/07/25 18:18 Completed PTT [Activated Partial Thrombo Time] Stat Lab 07/07/25 18:18 Completed Rapid PCR Covid and Flu A/B Stat Lab 07/07/25 19:09 Completed Trop I [Troponin I] Stat Lab 07/07/25 18:18 Completed Troponin I Q3H Lab 07/07/25 22:00 Ordered Troponin I Q3H Lab 07/08/25 01:00 Ordered Medical Decision Narrative: Eduardo Hanley MD: I was consulted by the HARRY, and we discussed the complexity of the problems being addressed. I approve the treatment and management plan for this patient's care in the emergency department, thus performing a substantive portion of the medical decision making. I did perform a bedside ultrasound of the patient's abdomen to evaluate for fluid burden to possibly perform diagnostic paracentesis to rule out SBP as a source of her abdominal pain. Patient does have ascitic fluid within the abdomen, however it seems localized around the liver and very close to the urinary bladder. I do not appreciate a pocket large enough and at a safe distance unknot from these organs to safely do a bedside paracentesis. Given concern for SBP given patient's severe abdominal pain, will administer 2 g of IV Rocephin. See HARRY note for further information regarding care. Critical Care <Susana Feng (ED), [employer] - Last Filed: 07/07/25 21:04> Critical Care Time Critical Care Time: No
--- NOTE | 2025-07-07 18:49 | XR_ITS ---
PROCEDURE INFORMATION: Exam: XR Chest Exam date and time: 07/07/2025 7:31 PM Age: 54 years old Clinical indication: Shortness of breath; Additional info: Short of breath TECHNIQUE: Imaging protocol: Radiologic exam of the chest. Views: 1 view. COMPARISON: CR XR CHEST PORTABLE 05/23/2025 11:57 PM FINDINGS: Lungs: Small lung volumes are identified bilaterally consistent with expiratory phase. Imaging through the visualized lung saldana demonstrates mild bibasilar subsegmental atelectasis. Pleural spaces: Unremarkable. No pleural effusion. No pneumothorax. Heart/Mediastinum: Unremarkable. No cardiomegaly. Bones/joints: Unremarkable. IMPRESSION: 1. No acute findings. 2. Mild bibasilar atelectasis.
--- OUTSIDE RECORDS SUMMARY | 2025-07-07 18:54 | XMS_ITS | Encounter Summary ---
Author Organization [facility] Address [address] [place] [address] Care Team Providers Care Mold Filler And Drainer Name Role Phone Trevor Rolon DO Primary Care Provider [phone] Mc Grant Unavailable [phone] El Agarwal APRN Unavailable [phone] Cely Diaz RN Unavailable Unavailable Jesus Luis MD Primary Care Provider + [phone] Encounter Details Date Type Department Care Team (Late st Contact Info) Description 02/20/2025 Orders Only External Location [address] [place] [address] Provider, External Social History Tobacco Use Types [...] Description 07/17/2025 8:45 AM EST Clinical Support [facility] [place] [address] [place] [id number] 07/17/2025 10:30 AM EST Office Visit [facility] [place] [address] [place] [address] Nj Johns MD [address] [place] [address] documented as of this encounter [...] filedocumented in this encounter Additional Health Concerns Infection Onset Date Last Indicated Resolved Time C. difficile Rule-Out 05/24/2025 05/24/20252024 3:50 PM EST Gastrointestinal Rule-Out 05/24/2025 05/24/2025 3:51 PM EST Gastrointestinal Rule-Out 05/25/2025 05/25/2025 7:50 PM EST COVID-19 Rule-Out 06/25/2025 06/25/2025 06/25/2025 5:34 PM EST Assessment Noted Time PHQ-9 Depression Total Score: 024 7:48 AM EDT A fall risk assessment has been complete d for the patient 02/22/2024 7:47 AM EDT A Body Mass Index follow-up plan has been documented for the patient 10/10/2024 10:08 AM EDT documented as of this encounter Care Teams Mold Filler And Drainer Relationship Specialty Start Date End Date Trevor Rolon DO [address] [facility] [address] [place] [address] PCP - General 11/22/20 06/03/25 [place] [address] PCP - General 06/04/25 Mc Grant [address] [facility] [address] [place] [address] Referring Physician Gastroenterology 02/21/24 El Agarwal APRN [id number] Referring Physician Gastroenterology 03/21/25 Cely Diaz, RN [employer]ED [employer]FORMATION PROGRAM [place], [place] Overhead Line Worker 05/28/25 documented as of this encounter
--- OUTSIDE RECORDS SUMMARY | 2025-07-07 18:54 | XMS_ITS | Encounter Summary ---
Author Organization [facility] Address [address] [place] [address] Care Team Providers Care [id number] Tank Crewman Name Role Phone Trevor Rolon DO Primary Care Provider [phone] Mc Grant Unavailable [phone] El Agarwal APRN Unavailable [phone] Cely Diaz RN Unavailable Unavailable Jesus Luis MD Primary Care Provider + [phone] Encounter Details Date Type Department Care Team (Late st Contact Info) Description 09/28/2023 Orders Only External Location [address] [place] [address] Provider, External Social History Tobacco Use Types [...] Description 07/17/2025 8:45 AM EST Clinical Support [facility] [place] [address] [place] [address] 07/17/2025 10:30 AM EST Office Visit [facility] [place] [address] [place] [address] Nj Johns MD [address] [facility] [address] [place] [address] documented as of this encounter [...] 06/25/2025 5:34 PM EST Assessment Noted Time A fall risk assessment has been complete d for the patient 05/14/2023 11:23 AM EDT A Body Mass Index follow-up plan has been documented for the patient 05/19/2023 10:54 AM EST documented as of this encounter Care Teams M1A1 Tank Crewman Relationship Specialty Start Date End Date Trevor Rolon DO [address] [facility] [address] [place] [address] PCP - General 11/22/20 06/03/25 [place] [address] PCP - General 06/04/25 Mc Grant [address] [address] Referring Physician Gastroenterology 02/21/24 El Agarwal APRN [id number] Referring Physician Gastroenterology 03/21/25 Cely Diaz, RN [employer]ED TRANSFORMATION PROGRAM [place], [place] Credit Cashier 05/28/25 documented as of this encounter
--- OUTSIDE RECORDS SUMMARY | 2025-07-07 18:54 | XMS_ITS | Encounter Summary ---
Author Organization [facility] Address [address] [place] [address] Care Team Providers Care Credit Reference Clerk Name Role Phone Trevor Rolon DO Primary Care Provider [phone] Mc Grant Unavailable [phone] El Agarwal APRN Unavailable [phone] Cely Diaz RN Unavailable Unavailable Jesus Luis MD Primary Care Provider + [phone] Encounter Details Date Type Department Care Team (Late st Contact Info) Description 02/12/2025 Orders Only External Location [address] [place] [address] Provider, External Social History Tobacco Use Types [...] Description 07/17/2025 8:45 AM EST Clinical Support [facility]plant [place] [address] [place] [address] 07/17/2025 10:30 AM EST Office Visit [facility] [place] [address] [place] [address] Nj Johns MD [address] [facility] [address] [place] [address] documented as of this [...] as of this encounter Care Teams Credit Reference Clerk Relationship Specialty Start Date End Date Trevor Rolon DO [address] [facility] [address] [place] [address] PCP - General 11/22/20 06/03/25 [place] [address] PCP - General 06/04/25 Mc Grant [address] [facility] [address] [place] [address] Referring Physician Gastroenterology 02/21/24 El Agarwal APRN [id number] Referring Physician Gastroenterology 03/21/25 Cely Diaz, RN VALUE-BASED TRANSFORMATION PROGRAM [place], [place] Food Service Helper 05/28/25 documented as of this encounter
--- OUTSIDE RECORDS SUMMARY | 2025-07-07 18:54 | XMS_ITS ---
Author Organization [facility] Address [address] [place] [address] Care Team Providers Care Production Planning Supervisor Name Role Phone Mc Grant Unavailable [phone] El Agarwal APRN Unavailable [phone] Cely Diaz RN Unavailable Unavailable Jesus Luis MD Primary Care Provider + [phone] Transplant Episode Liver Candidate [facility] ([place], [place]) [facility] Evaluation began on 04/10/2025 Marked as Active on 04/10/2025 Liver CoordinatorMadyson Sarabia RN Phone: N/A Fax: N/A Email: N/A Scores Score Value Updated Expires Exceptions/Tracy sons CPRA Not available MELD (Calc) 20 07/02/2025 Care Team Name Role Phone Fax Email Madyson Sarabia RN Liver Coordinator N/A N/A N/A Thuy Dasilva LCSW Manager Costing N/A N/A N/A Asael Esteves MD Surgeon [phone] N/A El Agarwal APRN Referring Physician N/A [phone] N/A Events Pre-Transplant Referred: 03/21/2025 Evaluation began: 04/10/2025 Committee: 04/09/2025 Appointments (06/07/2025 - 08/07/2025) When With Visit Type Description 07/17/2025 Transplant LAB 07/17/2025 Transplant - Damon Johns V isit - Transplant
--- OUTSIDE RECORDS SUMMARY | 2025-07-07 18:54 | XMS_ITS | Encounter Summary ---
Author Organization [facility] Address [address] [place] [address] Care Team Providers Care Caustic Liquor Maker Name Role Phone Trevor Rolon DO Primary Care Provider [phone] Mc Grant Unavailable [phone] El Agarwal APRN Unavailable [phone] Cely Diaz RN Unavailable Unavailable Jesus Luis MD Primary Care Provider + [phone] Encounter Details Date Type Department Care Team (Late st Contact Info) Description 08/16/2024 Orders Only External Location [address] [place] [address] Provider, External Social History Tobacco Use Types [...] Description 07/17/2025 8:45 AM EST Clinical Support [facility] [place] [address] [place] [address] 07/17/2025 10:30 AM EST Office Visit [facility] [place] [address] [place] [address] Nj Johns MD [address] [place] [address] documented as of this encounter [...] documented as of this encounter Care Teams Caustic Liquor Maker Relationship Specialty Start Date End Date Trevor Rolon DO [address] [facility] 201 [place] [address] PCP - General 11/22/20 06/03/25 [place] [address] PCP - General 06/04/25 Mc Grant [address] [facility] 201 [place] [address] Referring Physician Gastroenterology 02/21/24 El Agarwal APRN [id number] Referring Physician Gastroenterology 03/21/25 Cely Diaz, RN VALUE-BASED TRANSFORMATION PROGRAM [place] Relish Blender 05/28/25 documented as of this encounter
--- OUTSIDE RECORDS SUMMARY | 2025-07-07 18:54 | XMS_ITS | Encounter Summary ---
Author Organization [facility] Address [address] [place] [address] Care Team Providers Care Steeler Name Role Phone Trevor Rolon DO Primary Care Provider [phone] Mc Grant Unavailable [phone] El Agarwal APRN Unavailable [phone] Cely Diaz RN Unavailable Unavailable Jesus Luis MD Primary Care Provider + [phone] Encounter Details Date Type Department Care Team (Late st Contact Info) Description 02/28/2025 [facility] [address] [place] [address] Laquita Corral [place] [id number] Social History Tobacco Use Types Packs/Day Years [...] Description 07/17/2025 8:45 AM EST Clinical Support [facility] [place] [address] [place] [address] 07/17/2025 10:30 AM EST Office Visit [facility] [place] [address] [facility] [address] [place] [address] Nj Johns MD [address] [facility] [address] [place] [address] documented as of this encounter Visit Diagnoses [...] documented as of this encounter Care Teams Steeler Relationship Specialty Start Date End Date Trevor Rolon DO [address] [facility] [address] [place] [address] PCP - General 11/22/20 06/03/25 [place] [address] PCP - General 06/04/25 Mc Grant [address] [facility] [address] [place] [address] Referring Physician Gastroenterology 02/21/24 El Agarwal APRN [id number] Referring Physician Gastroenterology 03/21/25 Cely Diaz, RN VALUE-BASED TRANSFORMATION PROGRAM [place], [place] Deliverer Food 05/28/25 documented as of this encounter
--- OUTSIDE RECORDS SUMMARY | 2025-07-07 18:54 | XMS_ITS | Encounter Summary ---
Author Organization [facility] Address [address] [place] [address] Care Team Providers Care Newspaper Distributor Supervisor Name Role Phone Trevor Rolon DO Primary Care Provider [phone] Mc Grant Unavailable [phone] El Agarwal APRN Unavailable [phone] Cely Diaz RN Unavailable Unavailable Jesus Luis MD Primary Care Provider + [phone] Encounter Details Date Type Department Care Team (Late st Contact Info) Description 10/24/2024 Orders Only External Location [address] [place] [address] Provider, External Social History Tobacco Use Types [...] Description 07/17/2025 8:45 AM EST Clinical Support [facility] Transplant [place] [address] [place] [address] 07/17/2025 10:30 AM EST Office Visit [facility] [place] [address] [place] [address] Nj Johns MD [address] [facility] [address] [place] [address] documented as of this encounter [...] documented as of this encounter Care Teams Newspaper Distributor Supervisor Relationship Specialty Start Date End Date Trevor Rolon DO [address] [facility] [address] [place] [address] PCP - General 11/22/20 06/03/25 [place] [address] PCP - General 06/04/25 Mc Grant [address] [facility] [address] [place] [address] Referring Physician Gastroenterology 02/21/24 El Agarwal APRN [id number] Referring Physician Gastroenterology 03/21/25 Cely Diaz, RN VALUE-BASED TRANSFORMATION PROGRAM [place], [place] Technical Sales Representative 05/28/25 documented as of this encounter
--- OUTSIDE RECORDS SUMMARY | 2025-07-07 18:54 | XMS_ITS | Encounter Summary ---
Author Organization [facility] Address [address] [place] [address] Care Team Providers Care Utility Bill Complaints Investigator Name Role Phone Trevor Rolon DO Primary Care Provider [phone] Mc Grant Unavailable [phone] El Agarwal APRN Unavailable [phone] Cely Diaz RN Unavailable Unavailable Jesus Luis MD Primary Care Provider + [phone] Encounter Details Date Type Department Care Team (Late st Contact Info) Description 11/15/2024 Orders Only External Location [address] [place] [address] Provider, External Social History Tobacco Use Types [...] Description 07/17/2025 8:45 AM EST Clinical Support [facility] Transplant [place] [address] [place] [address] 07/17/2025 10:30 AM EST Office Visit [facility] [place] [address] [place] [address] Nj Johns MD [address] [facility] [address] [place] [address] documented as of this encounter [...] documented as of this encounter Care Teams Utility Bill Complaints Investigator Relationship Specialty Start Date End Date Trevor Rolon DO [address] [facility] 201 [place] [address] PCP - General 11/22/20 06/03/25 [place] [address] PCP - General 06/04/25 Mc Grant [address] [facility] 201 [place] [address] Referring Physician Gastroenterology 02/21/24 El Agarwal APRN [id number] Referring Physician Gastroenterology 03/21/25 Cely Diaz, RN VALUE-BASED TRANSFORMATION PROGRAM [place] Leak Inspector 05/28/25 documented as of this encounter
--- OUTSIDE RECORDS SUMMARY | 2025-07-07 18:54 | XMS_ITS | Encounter Summary ---
Author Organization [facility] Address [address] [place] [address] Care Team Providers Care Wiring Mechanic Name Role Phone Trevor Rolon DO Primary Care Provider [phone] Mc Grant Unavailable [phone] lE Agarwal APRN Unavailable [phone] Cely Diaz RN Unavailable Unavailable Jesus Luis MD Primary Care Provider + [phone] Encounter Details Date Type Department Care Team (Late st Contact Info) Description 11/15/2024 Orders Only External Location [address] [place] [address] Provider, External Social History Tobacco Use Types [...] 07/17/2025 8:45 AM EST Clinical Support [facility] [place] [address] [place] [address] 07/17/2025 10:30 AM EST Office Visit [facility] [place] [address] [place] [address] Nj Johns MD [address] [facility] [address] [place] [address] documented as of this encounter [...] documented as of this encounter Care Teams Wiring Mechanic Relationship Specialty Start Date End Date Trevor Rolon DO [address] [facility] 201 [place] [address] PCP - General 11/22/20 06/03/25 [place] [address] PCP - General 06/04/25 Mc Grant [address] [facility] [address] [place] [address] Referring Physician Gastroenterology 02/21/24 El Agarwal APRN [id number] Referring Physician Gastroenterology 03/21/25 Cely Diaz, RN VALUE-BASED TRANSFORMATION PROGRAM [place] Seam Press Operator 05/28/25 documented as of this encounter
--- OUTSIDE RECORDS SUMMARY | 2025-07-07 18:54 | XMS_ITS | Encounter Summary ---
Author Organization [facility] Address [address] [place] [address] Care Team Providers Care Ski Patrol Officer Name Role Phone Trevor Rolon DO Primary Care Provider [phone] Mc Grant Unavailable [phone] El Agarwal APRN Unavailable [phone] Cely Diaz RN Unavailable Unavailable Jesus Luis MD Primary Care Provider + [phone] Encounter Details Date Type Department Care Team (Late st Contact Info) Description 07/01/2023 Orders Only External Location [address] [place] [address] Provider, External Social History Tobacco Use Types [...] Clinical Support [facility] Transplant [place] [address] [place] [address] 07/17/2025 10:30 AM EST Office Visit [facility] [place] [address] [place] [address] Nj Johns MD [address] [facility] [address] [place] [address] documented as of this encounter [...] documented as of this encounter Care Teams Ski Patrol Officer Relationship Specialty Start Date End Date Trevor Rolon DO [address] [facility] [address] [place] [address] PCP - General 11/22/20 06/03/25 [place] [address] PCP - General 06/04/25 Mc Grant [address] [facility] [address] [place] [address] Referring Physician Gastroenterology 02/21/24 El Agarwal APRN [id number] Referring Physician Gastroenterology 03/21/25 Cely Diaz, CORWIN VALUE-BASED TRANSFORMATION PROGRAM [place], [place] Welder Journeyman 05/28/25 documented as of this encounter
--- OUTSIDE RECORDS SUMMARY | 2025-07-07 18:54 | XMS_ITS | Encounter Summary ---
Author Organization [facility] Address [address] [place] [address] Care Team Providers Care Optical Instrument Assembler Name Role Phone Trevor Rolon DO Primary Care Provider [phone] Mc Grant Unavailable [phone] El Agarwal APRN Unavailable [phone] Cely Diaz RN Unavailable Unavailable Jesus Luis MD Primary Care Provider + [phone] Encounter Details Date Type Department Care Team (Late st Contact Info) Description 03/01/2023 Orders Only External Location [address] [place] [address] Provider, External Social History Tobacco Use Types [...] Description 07/17/2025 8:45 AM EST Clinical Support [facility] Trans[facility] [place] [address] [place] [address] 07/17/2025 10:30 AM EST Office Visit [facility] [place] [address] [place] [address] Nj Johns MD [address] [facility] [address] [place] [address] documented as of this encounter [...] documented as of this encounter Care Teams Optical Instrument Assembler Relationship Specialty Start Date End Date Trevor Rolon DO [address] [facility] 201 [place] [address] PCP - General 11/22/20 06/03/25 [place] [address] PCP - General 06/04/25 Mc Grant [address] [address] Referring Physician Gastroenterology 02/21/24 El Agarwal APRN [id number] Referring Physician Gastroenterology 03/21/25 Cely Diaz, CORWIN VALUE-BASED TRANSFORMATION PROGRAM [place], [place] Global Commodity Manager 05/28/25 documented as of this encounter
--- OUTSIDE RECORDS SUMMARY | 2025-07-07 18:54 | XMS_ITS | Encounter Summary ---
Author Organization [facility] Address [address] [place] [address] Care Team Providers Care Powertrain Design Engineer Name Role Phone Trevor Rolon DO Primary Care Provider [phone] Mc Grant Unavailable [phone] El Agarwal APRN Unavailable [phone] Cely Diaz RN Unavailable Unavailable Jesus Luis MD Primary Care Provider + [phone] Reason for Referral * Consultation (Routine) - Authorized Specialty Diagnoses / Procedures Referred By Contac t Referred To Contact Hematology / Blood and Marrow Transplant Diagnoses Thrombocytopenia (CMS/H[place]) [place] [address] fax: Igor Harris MD [address] [facility] [address] [address] Phone: tel: fax: Referral ID Status Reason Start Date Expiration Date Visits Requested Visits Authorized [id number] Authorized Specialty Services Required 03/28/2025 09/27/2026 1 1 Encounter Details Date Type Department Care Team (Latest Contact Info) Description 03/28/2025 Community [facility] Community Practice [address] [place] [address] [place] [address] Thrombocytopenia (CMS/HCC) (Primary Dx) Social History Tobacco Use [...] Transplant Center [address] [place] [address] 07/17/2025 10:30 AM EST Office Visit [facility]plant [place] [address] [place] [address] Nj Johns MD [address] [place] [address] Scheduled Referrals Name Type Priority Associated Diagnoses Order Schedule Ambulatory referral to Benign Hematology Outpatient Referral Routine Thrombocytopenia (CMS/HCC) 1 Occurrences starting 03/28/2025 until 09/29/2026 documented as of this encounter Visit Diagnoses Diagnosis Thrombocytopenia (CMS/HCC)- Primary Unspecified thrombocytopenia documented in this encounter Additional Health Concerns Infection [...] documented as of this encounter Care Teams Powertrain Design Engineer Relationship Specialty Start Date End Date Trevor Rolon DO [address] [facility] 201 [place] [address] PCP - General 11/22/20 06/03/25 [place] [address] PCP - General 06/04/25 Mc Grant [address] [facility] 201 [place] [address] Referring Physician Gastroenterology 02/21/24 El Agarwal APRN [id number] Referring Physician Gastroenterology 03/21/25 Cely Diaz, RN VALUE-BASED TRANSFORMATION PROGRAM [place] Record Clerk Salesperson 05/28/25 documented as of this encounter
--- OUTSIDE RECORDS SUMMARY | 2025-07-07 18:54 | XMS_ITS | Encounter Summary ---
Author Organization [facility] Address [address] [place] [address] Care Team Providers Care Medical Biller/Coder Name Role Phone Trevor Rolon DO Primary Care Provider [phone] Mc Grant Unavailable [phone] El Agarwal APRN Unavailable [phone] Cely Diaz RN Unavailable Unavailable Jesus Luis MD Primary Care Provider + [phone] Encounter Details Date Type Department Care Team (Late st Contact Info) Description 01/06/2023 Orders Only External Location [address] [place] [address] Provider, External Social History Tobacco Use Types [...] Description 07/17/2025 8:45 AM EST Clinical Support [facility] Transplant [place] [address] [place] [address] 07/17/2025 10:30 AM EST Office Visit [facility] [place] [address] [place] [address] Nj Johns MD [address] [facility] [address] [place] [address] documented as of this encounter [...] documented as of this encounter Care Teams Medical Biller/Coder Relationship Specialty Start Date End Date Trevor Rolon DO [address] [facility] 201 [place] [address] PCP - General 11/22/20 06/03/25 [place] [address] PCP - General 06/04/25 Mc Grant [address] [address] Referring Physician Gastroenterology 02/21/24 El Agarwal APRN [id number] Referring Physician Gastroenterology 03/21/25 Cely Diaz, CORWIN VALUE-BASED TRANSFORMATION PROGRAM [place] Surgical Coder 05/28/25 documented as of this encounter
--- OUTSIDE RECORDS SUMMARY | 2025-07-07 18:54 | XMS_ITS | Encounter Summary ---
Author Organization [facility] Address [address] [place] [address] Care Team Providers Care Gravedigger Name Role Phone Trevor Rolon DO Primary Care Provider [phone] Mc Grant Unavailable [phone] El Agarwal APRN Unavailable [phone] Cely Diaz RN Unavailable Unavailable Jesus Luis MD Primary Care Provider + [phone] Encounter Details Date Type Department Care Team (Late st Contact Info) Description 02/18/2024 Community [facility] Community [facility] [address] [place] [address] Mc Grant [address] [place] [address] Encephalopathy, hepatic (CMS/HCC) (Primary Dx); [...] Description 07/17/2025 8:45 AM EST Clinical Support [facility] Transplant [place] [address] [facility] [address] [place] [address] 07/17/2025 10:30 AM EST Office Visit [facility] Transplant [place] [address] [facility] [address] [place] [address] Nj Johns MD [address] [facility] [address] [place] [address] documented as of this encounter [...] documented as of this encounter Care Teams Gravedigger Relationship Specialty Start Date End Date Trevor Rolon DO [address] [facility] [address] [place] [address] PCP - General 11/22/20 06/03/25 [place] [address] PCP - General 06/04/25 Mc Grant [address] [address] Referring Physician Gastroenterology 02/21/24 El Agarwal APRN [id number] Referring Physician Gastroenterology 03/21/25 Cely Diaz, RN VALUE-BASED TRANSFORMATION PROGRAM [place] Retail Pricing Coordinator 05/28/25 documented as of this encounter
--- OUTSIDE RECORDS SUMMARY | 2025-07-07 18:54 | XMS_ITS | Encounter Summary ---
Author Organization [facility] Address [address] [place] [address] Care Team Providers Care Substation Maintenance Technician Name Role Phone Trevor Rolon DO Primary Care Provider [phone] Mc Grant Unavailable [phone] El Agarwal APRN Unavailable [phone] Cely Diaz RN Unavailable Unavailable Jesus Luis MD Primary Care Provider + [phone] Encounter Details Date Type Department Care Team (Late st Contact Info) Description 11/15/2024 Orders Only External Location [address] [place] [address] Provider, External Social History Tobacco Use Types [...] AM EST Clinical Support [facility] [place] [address] [place] [address] 07/17/2025 10:30 AM EST Office Visit [facility] [place] [address] [place] [address] Nj Johns MD [address] [facility] [address] [place] [address] documented as of this encounter [...] documented as of this encounter Care Teams Substation Maintenance Technician Relationship Specialty Start Date End Date Trevor Rolon DO [address] [facility] 201 [place] [address] PCP - General 11/22/20 06/03/25 [place] [address] PCP - General 06/04/25 Mc Grant [address] [facility] 201 [place] [address] Referring Physician Gastroenterology 02/21/24 El Agarwal APRN [id number] Referring Physician Gastroenterology 03/21/25 Cely Diaz, RN VALUE-BASED TRANSFORMATION PROGRAM [place], [place] Distribution Dispatcher 05/28/25 documented as of this encounter
--- OUTSIDE RECORDS SUMMARY | 2025-07-07 18:54 | XMS_ITS | Encounter Summary ---
Author Organization [facility] Address [address] [place] [address] Care Team Providers Care Nutrition Consultant Name Role Phone Trevor Rolon DO Primary Care Provider [phone] Mc Grant Unavailable [phone] El Agarwal APRN Unavailable [phone] Cely Diaz RN Unavailable Unavailable Jesus Luis MD Primary Care Provider + [phone] Encounter Details Date Type Department Care Team (Late st Contact Info) Description 11/15/2024 Orders Only External Location [address] [place] [address] Provider, External Social History Tobacco Use Types [...] Description 07/17/2025 8:45 AM EST Clinical Support [facility] Transplant [place] [address] [place] [address] 07/17/2025 10:30 AM EST Office Visit [facility] Transplant [place] [address] [place] [address] Nj Johns MD [address] [email or web address] [address] [place] [address] documented as of this encounter [...] documented as of this encounter Care Teams Nutrition Consultant Relationship Specialty Start Date End Date Trevor Rolon DO [address] [facility] [address] [place] [address] PCP - General 11/22/20 06/03/25 [place] [address] PCP - General 06/04/25 Mc Grant [address] [facility] [address] [place] [address] Referring Physician Gastroenterology 02/21/24 El Agarwal APRN [id number] Referring Physician Gastroenterology 03/21/25 Cely Diaz, RN VALUE-BASED TRANSFORMATION PROGRAM [place], [place] Parts Classifier 05/28/25 documented as of this encounter
--- OUTSIDE RECORDS SUMMARY | 2025-07-07 18:54 | XMS_ITS | Encounter Summary ---
Author Organization [facility] Address [address] [place] [address] Care Team Providers Care Vice President Of Recruiting Name Role Phone Trevor Rolon DO Primary Care Provider [phone] Mc Grant Unavailable [phone] El Agarwal APRN Unavailable [phone] Cely Diaz RN Unavailable Unavailable Jesus Luis MD Primary Care Provider + [phone] Encounter Details Date Type Department Care Team (Late st Contact Info) Description 08/23/2022 Orders Only External Location [address] [place] [address] Provider, External Social History Tobacco Use Types [...] Description 07/17/2025 8:45 AM EST Clinical Support [facility] Transplant [place] [address] [facility] [address] [place] [address] 07/17/2025 10:30 AM EST Office Visit [facility] [place] [address] [facility] [address] [place] [address] Nj Johns MD [address] [facility] [address] [place] [address] documented as of this encounter [...] Rule-Out 06/25/2025 06/25/2025 06/25/2025 5:34 PM EST documented as of this encounter Care Teams Vice President Of Recruiting Relationship Specialty Start Date End Date Trevor Rolon DO [address] [facility] [address] [place] [address] PCP - General 11/22/20 06/03/25 [place] [address] PCP - General 06/04/25 Mc Grant [address] [address] Referring Physician Gastroenterology 02/21/24 El Agarwal APRN [id number] Referring Physician Gastroenterology 03/21/25 Cely Diaz, RN VALUE-BASED TRANSFORMATION PROGRAM [place] Ripening Room Operator 05/28/25 documented as of this encounter
--- OUTSIDE RECORDS SUMMARY | 2025-07-07 18:54 | XMS_ITS | Encounter Summary ---
Author Organization [facility] Address [address] [place] [address] Care Team Providers Care Form Maker Plaster Name Role Phone Trevor Rolon DO Primary Care Provider [phone] Mc Grant Unavailable [phone] El Agarwal APRN Unavailable [phone] Cely Diaz RN Unavailable Unavailable Jesus Luis MD Primary Care Provider + [phone] Reason for Referral * Transplant (Routine) - Authorized Specialty Diagnoses / Procedures Referred By Truong bella Referred To Contact Transplant Surgery / Transplant Diagnoses Cirrhosis of liver without ascites, unspecified hepatic cirrhosis type El Agarwal APRN [id number] fax: Referral ID Status Reason Start Date Expiration Date Visits Requested Visits Authorized [id number] Authorized Specialty Services Required 03/21/2025 09/20/2026 999 999 Encounter Details Date Type Department Care Team (Late st Contact Info) Description 03/21/2025 Community [facility] [address] [place] [address] El Agarwal APRN [id number] Cirrhosis of liver without ascites, unspecified hepatic [...] 8:45 AM EST Clinical Support [facility] Transplant [place] [address] [place] [address] 07/17/2025 10:30 AM EST Office Visit [facility] [place] [address] [place] [address] Nj Johns MD [address] [place] [address] Scheduled Referrals Name Type Priority Associated Diagnoses [...] documented as of this encounter Care Teams Form Maker Plaster Relationship Specialty Start Date End Date Trevor Rolon DO [address] [facility] 201 [place] [address] PCP - General 11/22/20 06/03/25 [place] [address] PCP - General 06/04/25 Mc Grant [address] [facility] [address] [place] [address] Referring Physician Gastroenterology 02/21/24 El Agarwal APRN [id number] Referring Physician Gastroenterology 03/21/25 Cely Diaz, RN VALUE-BASED TRANSFORMATION PROGRAM [place] Reliability Manager 05/28/25 documented as of this encounter
--- OUTSIDE RECORDS SUMMARY | 2025-07-07 18:54 | XMS_ITS | Encounter Summary ---
Author Organization [facility] Address [address] [place] [address] Care Team Providers Care Laser Beam Trim Operator Name Role Phone Trevor Rolon DO Primary Care Provider [phone] Mc Grant Unavailable [phone] El Agarwal APRN Unavailable [phone] Cely Diaz RN Unavailable Unavailable Jesus Luis MD Primary Care Provider + [phone] Encounter Details Date Type Department Care Team (Late st Contact Info) Description 01/06/2023 Orders Only External Location [address] [place] [address] Provider, External Social History Tobacco Use Types [...] Description 07/17/2025 8:45 AM EST Clinical Support [facility] Transplant [place] [address] [place] [address] 07/17/2025 10:30 AM EST Office Visit [facility] [place] [address] [place] [address] Nj Johns MD [address] [facility] [address] [place] [address] documented as of this encounter [...] documented as of this encounter Care Teams Laser Beam Trim Operator Relationship Specialty Start Date End Date Trevor Rolon DO [address] [facility] 201 [place] [address] PCP - General 11/22/20 06/03/25 [place] [address] PCP - General 06/04/25 Mc Grant [address] [address] Referring Physician Gastroenterology 02/21/24 El Agarwal APRN [id number] Referring Physician Gastroenterology 03/21/25 Cely Diaz, CORWIN VALUE-BASED TRANSFORMATION PROGRAM [place], [place] Staff Weapons Officer 05/28/25 documented as of this encounter
--- OUTSIDE RECORDS SUMMARY | 2025-07-07 18:54 | XMS_ITS | Encounter Summary ---
Author Organization [facility] Address [address] [place] [address] Care Team Providers Care Advocacy Director Name Role Phone Trevor Rolon DO Primary Care Provider [phone] Mc Grant Unavailable [phone] El Agarwal APRN Unavailable [phone] Cely Diaz RN Unavailable Unavailable Jesus Luis MD Primary Care Provider + [phone] Encounter Details Date Type Department Care Team (Late st Contact Info) Description 11/15/2024 Orders Only External Location [address] [place] [address] Provider, External Social History Tobacco Use Types [...] Description 07/17/2025 8:45 AM EST Clinical Support [facility] Transplant [place] [address] [place] [address] 07/17/2025 10:30 AM EST Office Visit [facility] Transplant [place] [address] [place] [address] Nj Johns MD [address] [facility] [address] [place] [address] documented as of this encounter [...] documented as of this encounter Care Teams Advocacy Director Relationship Specialty Start Date End Date Trevor Rolon DO [address] [facility] 201 [place] [address] PCP - General 11/22/20 06/03/25 [place] [address] PCP - General 06/04/25 Mc Grant [address] [facility] [address] [place] [address] Referring Physician Gastroenterology 02/21/24 El Agarwal APRN [id number] Referring Physician Gastroenterology 03/21/25 Cely Diaz, RN VALUE-BASED TRANSFORMATION PROGRAM [place], [place] Retouching Operator 05/28/25 documented as of this encounter
--- OUTSIDE RECORDS SUMMARY | 2025-07-07 18:54 | XMS_ITS | Encounter Summary ---
Author Organization [facility] Address [address] [place] [address] Care Team Providers Care Market Asset Protection Manager Name Role Phone Trevor Rolon DO Primary Care Provider [phone] Mc Grant Unavailable [phone] El Agarwal APRN Unavailable [phone] Cely Diaz RN Unavailable Unavailable Jesus Luis MD Primary Care Provider + [phone] Reason for Referral * Consultation (Routine) - Authorized Specialty Diagnoses / Procedures Referred By Truong bella Referred To Contact Gastroenterology Diagnoses GOOD (nonalcoholic steatohepatitis) [place] [address] fax: Referral ID Status Reason Start Date Expiration Date Visits Requested Visits Authorized [id number] Authorized Specialty Services Required 01/27/2024 07/28/2025 1 1 Encounter Details Date Type Department Care Team (Late st Contact Info) Description 01/27/2024 Community [facility] Community Practice [address] [place] [address] [place] [id number] GOOD (nonalcoholic steatohepatitis) (Primary Dx) Social History [...] Description 07/17/2025 8:45 AM EST Clinical Support [facility] [place] [address] [place] [address] 07/17/2025 10:30 AM EST Office Visit [facility] Transplant [place] [address] [place] [address] Nj Johns MD [address] [place] [address] Scheduled Referrals Name Type Priority Associated Diagnoses [...] documented as of this encounter Care Teams Market Asset Protection Manager Relationship Specialty Start Date End Date Trevor Rolon DO [address] [facility] 201 [place] [address] PCP - General 11/22/20 06/03/25 [place] [address] PCP - General 06/04/25 Mc Grant [address] [facility] [address] [place] [address] Referring Physician Gastroenterology 02/21/24 El Agarwal APRN [id number] Referring Physician Gastroenterology 03/21/25 Cely Diaz, RN VALUE-BASED TRANSFORMATION PROGRAM [place], [place] Back Hoe Operator 05/28/25 documented as of this encounter
--- OUTSIDE RECORDS SUMMARY | 2025-07-07 18:54 | XMS_ITS | Encounter Summary ---
Author Organization [facility] Address [address] [place] [address] Care Team Providers Care Supervisor Pigment Making Name Role Phone Trevor Rolon DO Primary Care Provider [phone] Mc Grant Unavailable [phone] El Agarwal APRN Unavailable [phone] Cely Diaz RN Unavailable Unavailable Jesus Luis MD Primary Care Provider + [phone] Encounter Details Date Type Department Care Team (Late st Contact Info) Description 10/24/2023 Orders Only External Location [address] [place] [address] Provider, External Social History Tobacco Use Types [...] Description 07/17/2025 8:45 AM EST Clinical Support [facility] Trans[facility] [place] [address] [place] [address] 07/17/2025 10:30 AM EST Office Visit [facility] [place] [address] [place] [address] Nj Johns MD [address] [facility] [address] [place] [address] documented as of this encounter [...] as of this encounter Care Teams Supervisor Pigment Making Relationship Specialty Start Date End Date Trevor Rolon DO [address] [facility] 201 [place] [address] PCP - General 11/22/20 06/03/25 [place] [address] PCP - General 06/04/25 Mc Grant [address] [address] Referring Physician Gastroenterology 02/21/24 El Agarwal APRN [id number] Referring Physician Gastroenterology 03/21/25 Cely Diaz, RN VALUE-BASED TRANSFORMATION PROGRAM [place] Claim Benefit Specialist 05/28/25 documented as of this encounter
--- OUTSIDE RECORDS SUMMARY | 2025-07-07 18:54 | XMS_ITS | Encounter Summary ---
Author Organization [facility] Address [address] [place] [address] Care Team Providers Care Jewel Inserter Name Role Phone Trevor Rolon DO Primary Care Provider [phone] Mc Grant Unavailable [phone] El Agarwal APRN Unavailable [phone] Cely Diaz RN Unavailable Unavailable Jesus Luis MD Primary Care Provider + [phone] Encounter Details Date Type Department Care Team (Late st Contact Info) Description 09/08/2024 Orders Only External Location [address] [place] [address] Provider, External Social History Tobacco Use Types [...] Description 07/17/2025 8:45 AM EST Clinical Support [facility] Trans[facility] [place] [address] [place] [address] 07/17/2025 10:30 AM EST Office Visit [facility] [place] [address] [place] [address] Nj Johns MD [address] [place] [address] documented as of this encounter [...] documented as of this encounter Care Teams Jewel Inserter Relationship Specialty Start Date End Date Trevor Rolon DO [address] [facility] 201 [place] [address] PCP - General 11/22/20 06/03/25 [place] [address] PCP - General 06/04/25 Mc Grant [address] [facility] 201 [place] [address] Referring Physician Gastroenterology 02/21/24 El Agarwal APRN [id number] Referring Physician Gastroenterology 03/21/25 Cely Diaz, RN VALUE-BASED TRANSFORMATION PROGRAM [place] Insurance Claim Auditor 05/28/25 documented as of this encounter
--- OUTSIDE RECORDS SUMMARY | 2025-07-07 18:54 | XMS_ITS | Encounter Summary ---
Author Organization [facility] Address [address] [place] [address] Care Team Providers Care Oil Burner Mechanic Name Role Phone Trevor Rolon DO Primary Care Provider [phone] Mc Grant Unavailable [phone] El Agarwal APRN Unavailable [phone] Cely Diaz RN Unavailable Unavailable Jesus Luis MD Primary Care Provider + [phone] Encounter Details Date Type Department Care Team (Late st Contact Info) Description 03/01/2023 Orders Only External Location [address] [place] [address] Provider, External Social History Tobacco Use Types [...] Description 07/17/2025 8:45 AM EST Clinical Support [facility] [place] [address] [email or web address] [address] [place] [address] 07/17/2025 10:30 AM EST Office Visit [facility] [place] [address] [place] [address] Nj Johns MD [address] [facility] [address] [place] [address] documented as of this encounter [...] as of this encounter Care Teams Oil Burner Mechanic Relationship Specialty Start Date End Date Trevor Rolon DO [address] [facility] 201 [place] [address] PCP - General 11/22/20 06/03/25 [place] [address] PCP - General 06/04/25 Mc Grant [address] [address] Referring Physician Gastroenterology 02/21/24 El Agarwal APRN [id number] Referring Physician Gastroenterology 03/21/25 Cely Diaz, CORWIN VALUE-BASED TRANSFORMATION PROGRAM [place] Washing Machine Loader 05/28/25 documented as of this encounter
--- OUTSIDE RECORDS SUMMARY | 2025-07-07 18:54 | XMS_ITS | Encounter Summary ---
Author Organization [facility] Address [address] [place] [address] Care Team Providers Care Consumer Banker Name Role Phone Trevor Rolon DO Primary Care Provider Lucy Christopher DO Unavailable Encounter Details Date Type Department Care Team (Late st Contact Info) Description 03/28/2025 Results Follow-Up [facility] [address] [place] [address] Janice Woodward, MAINTENANCE AIDE [address] [place] [address] Vaginitis Panel, C. trachomatis / N. gonorrhoeae, [...] do you attend [facility] or voodoo services? More than 4 [...] Care Team (Late st Contact Info) Description 08/16/2025 10:00 AM EST Office Visit [facility] [address] [place] [address] Brigitte Mahoney NP [address] [place] [address] 09/18/2025 1:30 PM EDT Office Visit [facility] [address] [place] [address] Suman Treviño MD [facility] [address] [facility]. [place] [id number] 12/13/2025 1:15 PM EDT Office Visit [facility] [address] 7[address] [place] [address] Janice Woodward, MAINTENANCE AIDE [address] [place] [id number] documented as of this encounter Visit Diagnoses Not on filedocumented in this encounter Additional Health Concerns Assessment Noted Time PHQ-9 Depression Total Score: 0 07/24/19 23 3:00 PM EST documented as of this encounter Care Teams Consumer Banker Relationship Specialty Start Date End Date Trevor Rolon DO [address] [facility] [address] [place] [id number] PCP - General Lucy Christopher DO [address] [place] [address] Consulting Physician Oncology 10/17/24 documented as of this encounter
--- OUTSIDE RECORDS SUMMARY | 2025-07-07 18:54 | XMS_ITS | Encounter Summary ---
Author Organization [facility] Address [address] [place] [address] Care Team Providers Care Biological Science Aide Name Role Phone Trevor Rolon DO Primary Care Provider [phone] Mc Grant Unavailable [phone] El Agarwal APRN Unavailable [phone] Cely Diaz RN Unavailable Unavailable Jesus Luis MD Primary Care Provider + [phone] Encounter Details Date Type Department Care Team (Late st Contact Info) Description 08/16/2024 Orders Only External Location [address] [place] [address] Provider, External Social History Tobacco Use Types [...] Description 07/17/2025 8:45 AM EST Clinical Support [facility] Trans[facility] [place] [address] [place] [address] 07/17/2025 10:30 AM EST Office Visit [facility] [place] [address] [place] [address] Nj Johns MD [address] [place] [address] documented as of this encounter [...] documented as of this encounter Care Teams Biological Science Aide Relationship Specialty Start Date End Date Trevor Rolon DO [address] [facility] 201 [place] [address] PCP - General 11/22/20 06/03/25 [place] [address] PCP - General 06/04/25 Mc Grant [address] [facility] [address] [place] [address] Referring Physician Gastroenterology 02/21/24 El Agarwal APRN [id number] Referring Physician Gastroenterology 03/21/25 Cely Diaz, RN VALUE-BASED TRANSFORMATION PROGRAM [place], [place] Broadcast Checker 05/28/25 documented as of this encounter
--- OUTSIDE RECORDS SUMMARY | 2025-07-07 18:54 | XMS_ITS | Encounter Summary ---
Author Organization [facility] Address [address] [place] [address] Care Team Providers Care Bottom Turning Lathe Turner Name Role Phone Trevor Rolon DO Primary Care Provider [phone] Mc Grant Unavailable [phone] El Agarwal APRN Unavailable [phone] Cely Diaz RN Unavailable Unavailable Jesus Luis MD Primary Care Provider + [phone] Reason for Referral * Consultation (Routine) - Authorized Specialty Diagnoses / Procedures Referred By Contac t Referred To Contact Cardiology Diagnoses HTN, [place] [address] fax: Referral ID Status Reason Start Date Expiration Date Visits Requested Visits Authorized [id number] Authorized Specialty Services Required 03/04/2025 09/03/2026 1 1 * Consultation (Routine) - Closed Specialty Diagnoses / Procedures Referred By Contac t Referred To Contact Neurology Diagnoses Neuropathic pain, [place] [address] fax: Referral ID Status Reason Start Date Expiration Date V isits Requested Visits Authorized [id number] Closed Specialty Services Required 03/04/2025 09/03/2026 1 1 Encounter Details Date Type Department Care Team (Late st Contact Info) Description 03/04/2025 [facility] [address] [place] [address] [place] [address] Neuropathic pain, leg, bilateral (Primary Dx); HTN, [...] Description 07/17/2025 8:45 AM EST Clinical Support [facility] [address] [place] [address] 07/17/2025 10:30 AM EST Office Visit [facility] Transplant [place] [address] [place] [address] Nj Johns MD [address] [place] [address] Scheduled Referrals Name Type Priority Associated Diagnoses [...] documented as of this encounter Care Teams Bottom Turning Lathe Turner Relationship Specialty Start Date End Date Trevor Rolon DO [address] [address] PCP - General 11/22/20 06/03/25 [place] [address] PCP - General 06/04/25 Mc Grant [address] [address] Referring Physician Gastroenterology 02/21/24 El Agarwal APRN [id number] Referring Physician Gastroenterology 03/21/25 Cely Diaz, RN VALUE-BASED TRANSFORMATION PROGRAM [place] Autocad Draftsman 05/28/25 documented as of this encounter
--- OUTSIDE RECORDS SUMMARY | 2025-07-07 18:54 | XMS_ITS | Encounter Summary ---
Author Organization [facility] Address [address] [place] [address] Care Team Providers Care Supervisor Fertilizer Name Role Phone Trevor Rolon DO Primary Care Provider [phone] Mc Grant Unavailable [phone] El Agarwal APRN Unavailable [phone] Cely Diaz RN Unavailable Unavailable Jesus Luis MD Primary Care Provider + [phone] Encounter Details Date Type Department Care Team (Late st Contact Info) Description 04/28/2024 Orders Only External Location [address] [place] [address] Provider, External Social History Tobacco Use Types [...] Description 07/17/2025 8:45 AM EST Clinical Support [facility] Transplant [place] [address] [place] [address] 07/17/2025 10:30 AM EST Office Visit [facility] Transplant [place] [address] [place] [address] Nj Johns MD [address] [place] [address] documented as of this encounter [...] as of this encounter Care Teams Supervisor Fertilizer Relationship Specialty Start Date End Date Trevor Rolon, [address] [facility] 201 [place] [address] PCP - General 11/22/20 06/03/25 [place] [address] PCP - General 06/04/25 Mc Grant [address] [facility] 201 [place] [address] Referring Physician Gastroenterology 02/21/24 El Agarwal APRN [id number] Referring Physician Gastroenterology 03/21/25 Cely Diaz, RN VALUE-BASED TRANSFORMATION PROGRAM [place], [place] Roll Forming Machine Set Up Operator 05/28/25 documented as of this encounter
--- OUTSIDE RECORDS SUMMARY | 2025-07-07 18:54 | XMS_ITS | Encounter Summary ---
Author Organization [facility] Address [address] [place] [address] Care Team Providers Care Seafood Specialist Name Role Phone Trevor Rolon DO Primary Care Provider [phone] Mc Grant Unavailable [phone] El Agarwal APRN Unavailable [phone] Cely Diaz RN Unavailable Unavailable Jesus Luis MD Primary Care Provider + [phone] Encounter Details Date Type Department Care Team (Late st Contact Info) Description 02/12/2025 Orders Only External Location [address] [place] [address] Provider, External Social History Tobacco Use Types [...] Description 07/17/2025 8:45 AM EST Clinical Support [facility] Transplant [place] [address] [place] [address] 07/17/2025 10:30 AM EST Office Visit [facility] [place] [address] [place] [address] Nj Johns MD [address] [facility] [address] [place] [address] documented as of this encounter [...] documented as of this encounter Care Teams Seafood Specialist Relationship Specialty Start Date End Date Trevor Rolon DO [address] [facility] 201 [place] [address] PCP - General 11/22/20 06/03/25 [place] [address] PCP - General 06/04/25 Mc Grant [address] [facility] [address] [place] [address] Referring Physician Gastroenterology 02/21/24 El Agarwal APRN [id number] Referring Physician Gastroenterology 03/21/25 Cely Diaz, RN VALUE-BASED TRANSFORMATION PROGRAM [place] Student Activities Director 05/28/25 documented as of this encounter
--- OUTSIDE RECORDS SUMMARY | 2025-07-07 18:54 | XMS_ITS | Encounter Summary ---
Author Organization [facility] Address [address] [place] [address] Care Team Providers Care Flat Surfacer Jewel Name Role Phone Trevor Rolon DO Primary Care Provider [phone] Mc Grant Unavailable [phone] El Agarwal APRN Unavailable [phone] Cely Diaz RN Unavailable Unavailable Jesus Luis MD Primary Care Provider + [phone] Encounter Details Date Type Department Care Team (Late st Contact Info) Description 09/08/2024 Orders Only External Location [address] [place] [address] Provider, External Social History Tobacco Use Types [...] Description 07/17/2025 8:45 AM EST Clinical Support [facility] [place] [address] [place] [address] 07/17/2025 10:30 AM EST Office Visit [facility] [place] [address] [place] [address] Nj Johns MD [address] [place] [address] documented as of this encounter [...] documented as of this encounter Care Teams Flat Surfacer Jewel Relationship Specialty Start Date End Date Trevor Rolon, [address] [facility] [address] [place] [address] PCP - General 11/22/20 06/03/25 [place] [id number] PCP - General 06/04/25 Mc Grant [address] [facility] [address] [place] [address] Referring Physician Gastroenterology 02/21/24 El Agarwal APRN [id number] Referring Physician Gastroenterology 03/21/25 Cely Diaz, RN [employer]ED [employer]ANSFORMATION PROGRAM [place], [place] Translator/Interpreter 05/28/25 documented as of this encounter
--- OUTSIDE RECORDS SUMMARY | 2025-07-07 18:55 | XMS_ITS | Encounter Summary ---
Author Organization [facility] nter Address [address] [place] [address] Care Team Providers Care Grainer Machine Name Role Phone Trevor Rolon DO Primary Care Provider Lucy Christopher DO Unavailable Reason for Referral * Consultation (Routine) - Authorized Specialty Diagnoses / Procedures Referred By Truong bella Referred To Contact Sleep Medicine Diagnoses Excessive daytime sleepiness Procedures MT OFFICE/OUTPATIENT NEW SF MDM 15 MINUTES MT OFFICE/OUTPATIENT NEW LOW MDM 30 MINUTES MT OFFICE/OUTPATIENT NEW MODERATE MDM 45 MINUTES MT OFFICE/OUTPATIENT NEW HIGH MDM 60 MINUTES MT OFFICE/OUTPATIENT ESTABLISHED SF MDM 10 MIN MT OFFICE/OUTPATIENT ESTABLISHED LOW MDM 20 MIN MT OFFICE/OUTPATIENT ESTABLISHED MOD MDM 30 MIN MT OFFICE/OUTPATIENT ESTABLISHED HIGH MDM 40 MIN Laquita Corral PA [address] [facility] [address] [place] [address] Phone: tel: fax: [facility] [address] [place] [address] Phone: tel: fax: Referral ID Status Reason Start Date Expiration Date Visits Requested Visits Authorized [id number] Authorized Specialty Services Required 11/23/2024 11/23/2025 1 3 Encounter Details Date Type Department Care Team (Late st Contact Info) Description 11/23/2024 Community Orders [facility] Link [address] [facility] [address] [place] [address] Laquita Corral PA [address] [facility] [address] [place] [address] Excessive daytime sleepiness (Primary Dx) Social History [...] often do you attend [facility] or [facility] services? More than 4 times [...] Description 08/16/2025 10:00 AM EST Office Visit [facility] [address] [place] [address] Brigitte Mahoney NP [address] [place] [address] 09/18/2025 1:30 PM EDT Office Visit [facility]HEUMATOLOGY [facility] [address] [place] [address] Suman Treviño MD [address] [facility]. [place] [address] 12/13/2025 1:15 PM EDT Office Visit [facility] [address] [place] [address] Janice Woodward, CLAU [address] [place] [phone] Scheduled Referrals Name Type Priority Associated Diagnoses [...] documented as of this encounter Care Teams Grainer Machine Relationship Specialty Start Date End Date Trevor Rolon DO [address] [facility] [place] [address] [place] [address] PCP - General Lucy Christopher DO [address] [facility] [place] [id number] Consulting Physician Oncology 10/17/24 documented as of this encounter
--- OUTSIDE RECORDS SUMMARY | 2025-07-07 18:55 | XMS_ITS | Continuity of Care Document ---
Author Organization [facility] in [facility] Address [address] [place] [address] 10 [address] [place] [address] Care Team Providers Care Consulting Sales Manager Name Role Phone GAGE MOSLEY Primary Care Provider Unavailabl e GAGE MOSLEY Referring Provider Unavailable Assessment No assessment recorded. Plan of Treatment Reminders Order Date Submit Date Provider Last Modified By Organization Details Last Modified Time Details Appointments FOLLOW UP 2025 01:45P M Zeinab Lackey APRN Not available Not available Not available Lab None recorded. Referral None recorded. Procedures lumbar radiofreq uency ablation (PROC) - RFA B/L L3-5 w [facility] with Sedation on or after 05/09/252024 025 [id number] [facility], [address] [place] [address] [address], [place], [id number], 06/30/2025 06:13:35 Surgeries None recorded. Imaging None recorded. Medication Orders None recorded. Patient TargetsNo targets recorded. Patient InstructionsNo instructions recorded. Reason for Referral None Reported. Results Created Date Observation Date Name Description Value Unit Range Abnormal Flag Note LastModifiedBy Organization Detail LastModifiedTime Result Notes None recorded. Problems Name Problem SNOMED Code Status Onset Date Resolution Date Notes Provider Name and Address Organization Details Recorded Time Diabetes mellitus 97384802 Active 2021 KIKE Allan [facility] 2 06:09:30 Lumbar post-nabil ctomy syndrome 579905791 Active 2022 KIKE Zheng [facility] 5 18:00:18 Lumbosacral spondylosis without myelopathy 28537152 Active 2022 Perla Gibson null, [place] - [facility] 5 12:30:03 Myalgia/nhi sitis - multiple 082431301 Active 2022 Suzy Prince null, [place] - [facility] 5 17:26:10 Lumbar radiculopat hy 781099977 Active 2022 Suzy Prince null, [place] - [facility] 5 17:26:05 Thoracic back pain 352303004 Active 2022 Suzy Prince null, [place] - [facility] 5 17:26:19 Neck pain 75407540 Active 2022 Suzy Prince null, [place] - [facility] 5 17:26:12 Cervical radiculopat hy 15296247 Active 2022 Perla Gibson null, [place] - [facility] 5 18:00:18 Thoracic spondylosis 283310914 Active 2022 Suzy Prince null, [place] - [facility] 5 17:26:23 Metabolic dysfunction -associated steatohepat itis 004536595 Active 2024 Suzy Prince null, [place] - [facility] 5 17:27:14 Anxiety 41956443 Active 2024 Suzy Prince null, [place] - [facility] 5 17:27:44 Chronic depression 780795571 Active 2024 Suzy Prince null, [place] - [facility] 5 17:27:55 Chronic pain 52798129 Active 2024 Perla Gibson null, [place] - [facility] 5 18:00:18 Thoracic spondylosis without myelopathy 567593140 Active 2024 Perla [place] null, [place] - [facility] 5 18:00:18 Long-term current use of opiate analgesic drug [id number] 08 Active 2024 Hemalatha KIKE Chen - [facility] 5 09:17:45 Muscle pain 24586963 Active 2024 KIKE Zheng - [facility] 5 18:00:18 Problem Notes None recorded. Procedures Surgical History Date Name Laterality Status Provider Name and Address Organization Details Recorded Time 2024 Diagnostic Lumbar MBB (2 Level Bilateral) completed Josie [place] - [facility] 5 11:35:19 2024 Diagnostic Lumbar MBB (2 Level Bilateral) completed Suzy [facility] - [facility] 5 16:30:10 2024 extraction of cataract completed Perla [facility] - [facility] 5 10:45:18 2022 Thoracic MBB (2 Level Bilateral) completed Josie [place] - [facility] 3 09:27:18 2022 Lumbar RFA (2 Level Bilateral) completed Josie [place] - [facility] 3 14:55:34 2022 Diagnostic Lumbar MBB (2 Level Bilateral) completed Ale [place]ch [place] - [facility] 3 09:29:25 2022 Diagnostic Lumbar MBB (2 Level Bilateral) completed Josie [place] - [facility] 3 15:40:12 2009 operation on lumbar spine completed Tyrone [facility] - [facility] 2 16:30:19 2009 Lumbar Discectomy/Decompression completed Ale [place] - [facility] 2 16:28:53 1994 Lumbar Discectomy/Decompression completed Ale [place]ch [place] - [facility] 2 16:28:29 Cholecystectomy completed Leo STOKES [facility] 2 06:14:35 ligation of fallopian tube completed Leo STOKES [facility] 2 06:14:41 Breast Surgery completed Ale STOKES [facility] 2 16:26:33 hysterectomy completed Suzy STOKES [facility] 5 17:26:29 exploratory laparotomy completed Davie Prince [facility] 5 17:26:46 excision of ganglion cyst completed Suzy Prince [facility] 5 17:26:52 appendectomy completed Suzy STOKES [facility] 5 17:26:57 colonoscopy completed Szuy STOKES [facility] 5 17:27:03 esophagogastroduodenoscopy completed Suzy STOKES [facility] 5 17:27:07 Imaging Results None recorded. Procedure Notes None recorded. Medical Equipment None Reported. Allergies Allergen ID Allergen Name Allergen Category Reaction Reaction Severity Criticality Documentation Date Start Date Code Code System Note Provider Name and Address Organization Details Recorded Time 304184 Substance with sulfonami de structure and antibacte rial mechanism of action (substanc e) medicatio n itching rash Not available Not available Not available 05/25/2022 69322 8003 SNOMED KIKE Allan [facility] 2 06:08:56 632037 Betadine medicatio n itching rash Not available Not available Not available 05/25/2022 29274 0 RxNorm Leo KIKE Whitley - [facility] 2 06:09:06 381018 iodine medicatio n itching rash Not available Not available Not available 05/25/2022 5933 RxNorm KIKE Rowell - [facility] 2 16:25:36 334584 vortioxet ine hydrobrom abimael medicatio n Not available Not available Not available 01/09/2025 13483 34 RxNorm KIKE Piña - [facility] 5 17:24:07 209985 sulfameth oxazole / trimethop rim medicatio n hives Not available high 05/30/20252024 79896 RxNorm Pt repor ts full body hives Not Available [employer] - prod 5 15:16:49 030274 vortioxet ine hydrobrom abimael medicatio n itching rash Not available Not available high 05/30/20252019 78941 34 RxNorm Not Available [employer] - prod 5 15:16:49 245863 povidone- iodine medicatio n hives Not available [facility] 05/30/20252015 8611 RxNorm Not Available [employer] - prod 5 15:24:15 253818 sulfaceta mide medicatio n hives Not available [facility] 05/30/20252015 18370 RxNorm Not Available [employer] - prod 5 15:24:15 905396 acetamino phen / oxycodone medicatio n Not available Not available Not available 06/01/2025 13235 3 RxNorm Not Available [employer] - prod 5 10:38:07 242482 vortioxet ine medicatio n rash Not available Not available 06/01/2025 95290 99 RxNorm Not Available [employer] - prod 5 10:38:07 Medications Name Sig Start Date Stop Date Status Note LastModified by Organization Details LastModified Time Rx Alternati ves General Compound Cream Apply to lower legs and feet 3=4 times a prn 01/09 completed Not Available Not Available Not Available Rx Alternati ves General Compound Cream Apply to lower legs and feet 3=4 times a prn 2022 active Not Available Not Available Not Avai lable amantadin e HCl 100 mg tablet 1 tablet daily 01/09 completed Not Available Not Available Not Available cyclobenz aprine 10 mg tablet Take 1 tablet 3 times a day by oral route as needed. 2024 active Not Available Not Available Not Avai lable pramipexo le 1 mg tablet TAKE ONE TABLET BY MOUTH TWICE DAILY 05/25 completed Not Available Not Available Not Available fluconazo le 100 mg tablet TAKE 1 TABLET BY MOUTH ONCE A DAY FOR 3 DAYS 04/24 completed Not Available Not Available Not Available methocarb alexandria 500 mg tablet Take 1 tablet twice a day by oral route as needed for 30 days. 12/28 completed Not Available Not Available Not Available ropinirol e 1 mg tablet TAKE 1 Tablet BY MOUTH FOUR TIMES A DAY active Not Available Not Available No t Available trazodone 50 mg tablet TAKE 1 1/2 AT BEDTIME 07/20 completed Not Available Not Available Not Available metoprolo l succinate ER 50 mg tablet,ex tended release 24 hr TAKE 1 TABLET BY MOUTH ONCE A DAY active Not Available Not Available No t Available valacyclo vir 1 gram tablet Take 1 tablet BY MOUTH IN THE MORNING AND AT BEDTIME for 10 days. 04/24 completed Not Available Not Available Not Available hydrocodo ne 5 mg-acetam inophen 325 mg tablet Take 1 tablet 3 times a day by oral route as needed for 30 days. 09/14 completed Not Available Not Available Not Available metoprolo l succinate ER 200 mg tablet,ex tended release 24 hr TAKE 1 Tablet BY MOUTH ONCE DAILY 01/09 completed Not Available Not Available Not Available FreeStyle Lancets 28 gauge USE directed 3 TIMES A DAY 04/24 completed Not Available Not Available Not Available lisinopri l 20 mg tablet TAKE 1 Tablet BY MOUTH ONCE DAILY 01/09 completed Not Available Not Available Not Available ondansetr on HCl 4 mg tablet TAKE 1 TABLET PUFF THREE TIMES DAILY NEEDED FOR NAUSEA 09/14 completed Not Available Not Available Not Available spironola ctone 100 mg tablet TAKE 2 TABLETS BY MOUTH EVERY MORNING active Not Available Not Available No t Available metoprolo l succinate ER 100 mg tablet,ex tended release 24 hr TAKE 1 Tablet BY MOUTH ONCE DAILY for hyperten jeremy 04/24 completed Not Available Not Available Not Available Lantus U-100 Insulin 100 unit/mL subcutane ous solution INJECT 20 UNITS UNDER THE SKIN EVERY MORNING. DISCARD REMAINDE R OF VIAL 28 DAYS AFTER INITIAL PUNCTURE active Not Available Not Available No t Available potassium chloride ER 10 mEq tablet,ex tended release TAKE ONE TABLET BY MOUTH ONCE DAILY NEEDED WITH LASIX 05/25 completed Not Available Not Available Not Available valacyclo vir 500 mg tablet TAKE 1 Tablet BY MOUTH EVERY MORNING 04/24 completed Not Available Not Available Not Available peg-elect rolyte solution 420 gram oral solution AT 5pm on Saturday 06/09, mix and drink 3/4 of the jug, drink the remainin g 1/4 of the jug 5 hours before you leave your house on 06/10 completed Not Available Not Available Not Available amitripty line 50 mg tablet TAKE TWO TABLETS BY MOUTH AT BEDTIME 05/25 completed Not Available Not Available Not Available spironola ctone 25 mg tablet TAKE ONE TABLET BY MOUTH ONCE DAILY 02/03 completed Not Available Not Available Not Available ondansetr on 8 mg disintegr ating tablet DISSOLVE 1 tablet ON THE TONGUE 2 TIMES A DAY active Not Available Not Available No t Available oxycodone -acetamin ophen 5 mg-325 mg tablet Take 1 tablet 4 times a day by oral route for 30 days. 04/10 completed changed to 5mg at 4 times per day due to pharmacy being out of stock on 7.5mg tablets Not Available Not Available Not Available potassium chloride ER 20 mEq tablet,ex tended release(p art/cryst ) TAKE 1 TABLET BY MOUTH 2 TIMES A DAY active Not Available Not Available No t Available prednisol one acetate 1 % eye drops,luis e pension instill 1 drop IN THE LEFT EYE 4 TIMES A DAY FOR 1 WEEK AFTER surgery THEN 1 drop 3 TIMES A DAY FOR 1 WEEK THEN 1 drop 2 TIMES A DAY FOR 1 WEEK THEN 1 drop ONCE a DAY FOR 1 WEEK 03/27 completed Not Available Not Available Not Available Humalog U-100 Insulin 100 unit/mL subcutane ous solution INJECT 10 UNITS THREE TIMES A DAY WITH EACH MEAL PLUS SLIDING SCALE. MAX DAILY DOSE 66 UNITS 02/03 completed Not Available Not Available Not Available baclofen 10 mg tablet TAKE ONE TABLET BY MOUTH TWICE DAILY 05/25 completed Not Available Not Available Not Available pantopraz ole 40 mg tablet,de layed release TAKE 1 TABLET BY MOUTH EVERY MORNING active Not Available Not Available No t Available simvastat in 20 mg tablet TAKE 1 Tablet BY MOUTH EVERY NIGHT AT BEDTIME active Not Available Not Available No t Available metformin 1,000 mg tablet TAKE ONE TABLET TWO TIMES A DAY 09/14 completed Not Available Not Available Not Available buspirone 10 mg tablet TAKE 1 Tablet BY MOUTH TWO TIMES A DAY active Not Available Not Available No t Available lansopraz ole 30 mg capsule,d elayed release TAKE 1 Capsule BY MOUTH ONCE DAILY active Not Available Not Available No t Available lidocaine 5 % topical patch APPLY 1 PATCH TO PAINFUL AREA( ON INTACT SKIN) ONCE DAILY. WEAR 12 HOURS ON THEN REMOVE FOR 12 HOURS. 01/09 completed Not Available Not Available Not Available promethaz ine 25 mg tablet TAKE 1 Tablet BY MOUTH THREE TIMES A DAY NEEDED FOR NAUSEA AND VOMITING active Not Available Not Available No t Available gabapenti n 300 mg capsule TAKE 1 CAPSULE 3 TIMES A DAY BY ORAL ROUTE DIRECTED FOR 30 DAYS. 01/09 completed Not Available Not Available Not Available buspirone 7.5 mg tablet TAKE 1 TABLET BY MOUTH 2 TIMES A DAY NEEDED FOR ANXIETY active Not Available Not Available No t Available bumetanid e 1 mg tablet TAKE 2 TABLETS BY MOUTH EVERY MORNING active Not Available Not Available No t Available hydroxyzi ne HCl 25 mg tablet TAKE ONE TABLET BY MOUTH THREE TIMES A DAY NEEDED FOR ITCHING 01/09 completed Not Available Not Available Not Available bisacodyl 5 mg tablet,de layed release TAKE 4 TABLETS AT 9 IN THE MORNING ON Wednesday06/08/20 21 DIRECTED 05/25 completed Not Available Not Available Not Available furosemid e 20 mg tablet TAKE ONE TABLET BY MOUTH DAILY 11/02 completed Not Available Not Available Not Available gabapenti n 100 mg capsule TAKE ONE CAPSULE BY MOUTH TWO TIMES A DAY 03/10 completed Not Available Not Available Not Available ergocalci ferol (vitamin D2) 1,250 mcg (50,000 unit) capsule TAKE 1 CAPSULE BY MOUTH ONCE WEEKLY active Not Available Not Available No t Available Prometheg an 25 mg rectal supposito ry INSERT 1 SUPPOSIT ORY RECTALLY THREE TIMES DAILY NEEDED 07/20 completed Not Available Not Available Not Available methylpre dnisolone 4 mg tablets in a dose pack TAKE BY MOUTH DIRECTED - PER PACKAGE INSTRUCT IONS 01/09 completed Not Available Not Available Not Available ferrous sulfate 325 mg (65 mg iron) tablet,de layed release TAKE 1 Tablet BY MOUTH ONCE DAILY 01/09 completed Not Available Not Available Not Available metformin ER 500 mg tablet,ex tended release 24 hr TAKE TWO TABLETS BY MOUTH AFTER SUPPER, DO NOT CRUSH, CHEW, OR DIVIDE 01/09 completed Not Available Not Available Not Available amitripty line 100 mg tablet TAKE ONE TABLET BY MOUTH AT BEDTIME 05/25 completed Not Available Not Available Not Available lisinopri l 2.5 mg tablet TAKE 1 Tablet BY MOUTH ONCE DAILY 04/24 completed Not Available Not Available Not Available doxycycli ne hyclate 100 mg tablet TAKE 1 Tablet BY MOUTH TWO TIMES A DAY for 10 days 01/09 completed Not Available Not Available Not Available spironola ctone 50 mg tablet TAKE 1 Tablet BY MOUTH ONCE DAILY 01/30 completed Not Available Not Available Not Available diazepam 5 mg tablet TAKE 1-2 TABLETS BY MOUTH BEFORE PLANNED PROCEDUR E 09/14 completed Not Available Not Available Not Available buspirone 15 mg tablet TAKE 1 TABLET BY MOUTH 4 TIMES A DAY 05/25 completed Not Available Not Available Not Available oxycodone 5 mg tablet Take 1 to 1.5 tablets every 8 hrs prn for chronic pain for 11 days 2024 active Not Available Not Available Not Avai lable hydroxyzi ne pamoate 25 mg capsule TAKE 1 Capsule BY MOUTH THREE TIMES A DAY NEEDED FOR ITCHING 04/24 completed Not Available Not Available Not Available Citroma oral solution DIRINK FIRST BOTTLE AT 6 IN THE EVENING ON Wednesday06/08/20 AND DRINK 2ND BOTTLe AT 9 IN THE MORNING ON SATURDAY 06/09 DIRECTED 05/25 completed Not Available Not Available Not Available escitalop karan 10 mg tablet TAKE 1 Tablet BY MOUTH ONCE DAILY 01/09 completed Not Available Not Available Not Available escitalop karan 20 mg tablet TAKE ONE TABLET BY MOUTH ONCE DAILY 05/25 completed Not Available Not Available Not Available insulin aspart (U-100) 100 unit/mL (3 mL) subcutane ous pen INJECT 5 UNITS UNDER THE SKIN at BREAKFAS T, lunch and supper if premeal BLOOD GLUCOSE > 150 MAX DAILY DOSE 50 UNITS active Not Available Not Available No t Available moxifloxa roddy 0.5 % eye drops instill 1 drop IN THE LEFT EYE 4 TIMES A DAY FOR 1 WEEK AFTER surgery 03/26 completed Not Available Not Available Not Available bupropion HCl XL 300 mg 24 hr tablet, extended release TAKE 1 Tablet BY MOUTH ONCE DAILY 01/09 completed Not Available Not Available Not Available bupropion HCl XL 150 mg 24 hr tablet, extended release TAKE 1 Tablet BY MOUTH ONCE DAILY 01/09 completed Not Available Not Available Not Available BD Ultra-Fin e Mini Pen Needle 31 gauge x 3/16 USE WITH INSULIN 5 TIMES A DAY 05/25 completed Not Available Not Available Not Available lactulose 10 gram/15 mL oral solution Take 15 mL BY MOUTH IN THE MORNING AND AT BEDTIME. active Not Available Not Available No t Available pregabali n 25 mg capsule TAKE 1 CAPSULE BY MOUTH EVERY MORNING AND 1 capsule AT bedtime active Not Available Not Available No t Available pregabali n 50 mg capsule TAKE ONE CAPSULE BY MOUTH IN THE MORNING AND AT BEDTIME 02/03 completed Not Available Not Available Not Available BD Ultra-Fin e Short Pen Needle 31 gauge x 5/16 USE WITH INSULIN 5 TIMES A DAY 05/25 completed Not Available Not Available Not Available FreeStyle Lite Meter kit use DIRECTED TO check BLOOD GLUCOSE THREE TIMES DAILY 01/30 completed Not Available Not Available Not Available FreeStyle Lite Strips USE directed 3 TIMES A DAY 04/24 completed Not Available Not Available Not Available FeroSul 325 mg (65 mg iron) tablet TAKE 1 TABLET BY MOUTH ONCE A DAY active Not Available Not Available No t Available Lantus Solostar U-100 Insulin 100 unit/mL (3 mL) subcutane ous pen INJECT 30 UNITS EVERY MORNING. TITRATE TO TARGET BLOOD GLUCOSE. MAX DAILY DOSE 50 UNITS 04/24 completed Not Available Not Available Not Available Humalog KwikPen (U-100) Insulin 100 unit/mL subcutane ous INJECT 10 UNITS THREE TIMES A DAY BEFORE MEALS PLUS SLIDING SCALE. MAX DAILY DOSE 50 UNITS 01/09 completed Not Available Not Available Not Available oxycodone 10 mg tablet TAKE 0.5 TABLETS 3 TIMES A DAY BY ORAL ROUTE NEEDED FOR 30 DAYS. 01/09 completed Not Available Not Available Not Available desvenlaf axine succinate ER 50 mg tablet,ex tended release 24 hr TAKE 1 TABLET BY MOUTH EVERY EVENING active Not Available Not Available No t Available diclofena c 1 % topical gel apply 2 grams TO affected AREA 4 TIMES A DAY active Not Available Not Available No t Available Qutenza 8 % topical kit Prescrib er to clifford area of applicat ion. Follow instruct ions to prepare site. Apply 4 patches topicall y to designat ed area(s) and remove after 60 minutes. Clean area after removal with supplied gel. active Not Available Not Available No t Available Xifaxan 550 mg tablet TAKE 1 TABLET BY MOUTH 2 TIMES A DAY active Not Available Not Available No t Available BD Ultra-Fin e Candie Pen Needle 32 gauge x 5/32 USE TWICE DAILY 01/09 completed Not Available Not Available Not Available oxycodone 7.5 mg tablet,or al ONLY (not for feeding tubes) Take 1 tablet 3 times a day by oral route as needed for 30 days. 06/11 completed Patient requeste d to change pharmaci es, previous rx was cancelle d Not Available Not Available Not Available BD Insulin Syringe Ultra-Fin e 1 mL 31 gauge x 5/16 USE TO INJECT INSULIN WITH EACH MEAL DIRECTED 09/14 completed Not Available Not Available Not Available Easy Touch Safety Lancets 30 gauge use DIRECTED THREE TIMES DAILY 03/13 completed Not Available Not Available Not Available potassium chloride ER 20 mEq tablet,ex tended release TAKE 1 Tablet BY MOUTH TWO TIMES A DAY active Not Available Not Available No t Available Jardiance 10 mg tablet TAKE 1 TABLET BY MOUTH EVERY MORNING 04/24 completed Not Available Not Available Not Available Jardiance 25 mg tablet TAKE 1 TABLET BY MOUTH EVERY MORNING active Not Available Not Available No t Available desvenlaf axine succinate ER 25 mg tablet,ex tended release 24 hr TAKE 1 Tablet BY MOUTH ONCE DAILY 01/09 completed Not Available Not Available Not Available OneTouch Verio Flex Meter CHECK GLUCOSE THREE TIMES DAILY 05/25 completed Not Available Not Available Not Available Xiidra 5 % eye drops in a dropperet te INSTILL 1 DROP IN EACH EYE TWO TIMES A DAY 01/09 completed Not Available Not Available Not Available Dexcom G6 Sweeper Brush Maker Machine USE DIRECTED 05/25 completed Not Available Not Available Not Available Dexcom G6 Transmitt er device USE ONCE EVERY 3 MONTHS 01/09 completed Not Available Not Available Not Available OneTouch Delica Plus Lancet 33 gauge USE TO CHECK BLOOD SUGAR THREE TIMES DAILY 01/09 completed Not Available Not Available Not Available [facility] ODT 75 mg disintegr ating tablet DISSOLVE 1 TABLET ON OR UNDER THE TONGUE ONCE DAILY NEEDED FOR MIGRAINE . MAX DOSE OF 1 TABLET PER 24 HOURS. 30-DAY SUPPLY. IF HAVING MORE THAN 15 MIGRAINE S PER MONTH CONTACT PRESCRIB ER 01/09 completed Not Available Not Available Not Available Ozempic 1 mg/dose (4 mg/3 mL) subcutane ous pen injector inject 1 MG SUBCUTAN EOUSLY ONCE WEEKLY active Not Available Not Available No t Available Dexcom G7 Sensor device USE directed , CHANGE every 10 DAYS active Not Available Not Available No t Available Ozempic 0.25 mg or 0.5 mg (2 mg/3 mL) subcutane ous pen injector INJECT 0.5 MG SUBCUTAN EOUSLY ONCE WEEKLY 01/09 completed Not Available Not Available Not Available Voquezna 10 mg tablet TAKE 1 Tablet BY MOUTH EVERY MORNING 01/09 completed Not Available Not Available Not Available Ultra-Fin e Insulin Syringe 1 mL 31 gauge x 15/64 USE TO INJECT INSULIN EVERY MORNING DIRECTED 03/13 completed Not Available Not Available Not Available Vitals None Recorded Social History Question Answer Notes LastModified by Organizat ion Details LastModified Time Tobacco Smoking Status Current Every Day Smoker Ale [place], [place] - [facility] 05/25/2022 16:28:10 Do You Have An Advance [...] Or The Highest Degree You Have Received? [id number] Information not available 11/04/2022 Do You Have A Medical Power Of Microbiology Lab Assistant? No [email or web address] Information not available 02/13/2025 What Was The Date Of Your Most Recent Tobacco Screening? 02/13/2025 [email or web address] Information not available 02/13/2025 What Is Your Relationship Status? Information not available 05/25/2022 How Much Tobacco Do You Smoke? 0.25 PPD Information not available 05/25/2022 Sex: Female Functional Status Question Answer Note LastModified by Organizat ion Details LastModified Time Do you use any illicit or recreational drugs? No API-27 Information not available 11/04/2022 What is your level of alcohol consumption? None Information not available 05/25/2022 Are you currently employed? No API-27 Information not available 11/04/2022 Are you able to walk independently without assistance or assistive devices? YESWOREST Information not available 05/25/2022 What is [...] Disorder Y Diabetes Y Seizure Disorder N Osteoarthritis Y CHF Y Head Trauma/Injury N Neurosurgery Y Skin [...] Diagnosis SNOMED-CT Code Diagnosis ICD10 Code Diagnosis IMO Codes Diagnosis Note [id number] SHANI TORO MD [address] [address] 03/27/2025 07:17:00 03/27/2025 08:01:51 Chronic pain 19011170 G89.29 Lumbar post-laminectomy syndrome 937753914 M96.1 Lumbosacra l spondylosis without myelopathy 76232458 M47.719 [id number] Thoracic s pondylosis without myelopathy 645690351 M47.814 Cervical radiculopathy 13505535 M54.12 Long-term drug therapy 290319926 Z79.899 No UDS on 03/27 Metabolic dysfunction-associate d steatohepatitis 776459249 K75.81 411814 Muscle pain 35043729 M79 .10 86863 [id number] SHANI TORO MD [place] [address] [address] 03/26/2025 15:49:09 03/26/2025 16:30:23 Lumbosacral spondylosis without myelopathy 85238517 M47.599 4703750 [id number] SHANI TORO MD [address] [address] 04/24/2025 07:16:44 04/24/2025 08:13:05 Chronic pain 93844753 G89.29 Lumbar post-laminectomy syndrome 678973799 M96.1 Muscle pain 79878948 M79 .10 45370 Lumbosacra l spondylosis without myelopathy 93484994 M47.737 7394250 Metabolic dysfunction-associate d steatohepatitis 115013348 K75.81 664209 Thoracic s pondylosis without myelopathy 106325946 M47.814 Cervical radiculopathy 55916169 M54.12 Long-term drug therapy 271796779 Z79.056 [id number] SHANI TORO MD [address] [address] 04/25/2025 09:59:32 04/25/2025 11:35:35 Lumbar spondylosis 124556206 M47.552 [id number] Health Concerns Section Related Observation LastModified by Organization Detai ls LastModified Time None Recorded Concern Status LastModified by Organization Details LastModified Time None Recorded Payers Encounter Date Sequence Insurance Name Policy Number Policy Lopez Covered Member ID Lopez Member ID Guarantor Name 04/25/2025 1 [facility] (MEDICAID HMO) Trudy Peña [id number] Trudy Peña OBGyn Episode No OBEpisode recorded.
--- OUTSIDE RECORDS SUMMARY | 2025-07-07 18:55 | XMS_ITS | Encounter Summary ---
Author Organization [facility] nter Address [address] [place] [address] Care Team Providers Care Roof Tile Layer Name Role Phone Trevor Rolon DO Primary Care Provider Lucy Christopher DO Unavailable Encounter Details Date Type Department Care Team (Late st Contact Info) Description 12/29/2022 Orders Only [facility] [address] 2nd [place] [address] Brigitte Mahoney, CLAU [address] [place] [address] Social History Tobacco Use Types [...] any clubs o r organizations such as jew groups, unions, fraternal or athletic groups, or [...] Description 08/16/2025 10:00 AM EST Office Visit [facility] ENDOCRINOLOGY [facility]ACT[facility] [address], 8th [place] [address] Brigitte Mahoney NP [facility] [address] [facility] [place] [address] 09/18/2025 1:30 PM EDT Office Visit [facility] RHEUMATOLOGY PRACTICE [address] 8th [place] [address] Suman Treviño MD [address] [facility]. Katie [place] [facility] 12/13/2025 1:15 PM EDT Office Visit [facility] [address] 7[address] Floor [place] [address] Janice Woodward, SPEECH THERAPY ASSISTANT [address] [place] [id number] documented as of this encounter Visit Diagnoses Not on filedocumented in this encounter Additional Health Concerns Assessment Noted Time PHQ-9 Depression Total Score: 0 07/24/19 23 3:00 PM EST documented as of this encounter Care Teams Roof Tile Layer Relationship Specialty Start Date End Date Trevor Rolon DO [address] [facility] [address] [place] [address] PCP - General Lucy Christopher DO [address] [place] [phone] Consulting Physician Oncology 10/17/24 documented as of this encounter
--- OUTSIDE RECORDS SUMMARY | 2025-07-07 18:55 | XMS_ITS | Encounter Summary ---
Author Organization [facility] nter Address [address] [place] [address] Care Team Providers Care Rehab Aid Name Role Phone Trevor Rolon DO Primary Care Provider Lucy Christopher DO Unavailable Encounter Details Date Type Department Care Team (Late st Contact Info) Description 07/06/2025 Abstract [facility] GASTROENTEROLOGY PRACTICE [address], 2nd [place] [address] Mc Grant DO [address] [facility] [place] [address] Social History Tobacco Use Types [...] often do you attend [facility] or jew services? More than 4 times [...] ENDOCRINOLOGY PRACTICE [address] 8th [place] [address] Brigitte Mahoney NP [address] [facility] [place] [address] 09/18/2025 1:30 PM EDT Office Visit [facility] RHEUMATOLOGY PRACTICE [address] 8th [place] [address] Suman Treviño MD [address] [place] [address] 12/13/2025 1:15 PM EDT Office Visit [facility] OBGYN PRACTICE [address], 7th [place] [address] Janice Woodward NP [address] [place] [phone] documented as of this encounter Visit Diagnoses Not on filedocumented in this encounter Additional Health Concerns Assessment Noted Time PHQ-9 Depression Total Score: 0 07/24/19 23 3:00 PM EST documented as of this encounter Care Teams Rehab Aid Relationship Specialty Start Date End Date Trevor Rolon DO [address] [facility] [address] [place] [address] PCP - General Lucy Christopher DO [address] [facility] [address] [facility] [place] [address] Consulting Physician Oncology 10/17/24 documented as of this encounter
--- OUTSIDE RECORDS SUMMARY | 2025-07-07 18:55 | XMS_ITS | Encounter Summary ---
Author Organization [facility] nter Address [address] [place] [address] Care Team Providers Care Clinical Exercise Specialist Name Role Phone Trevor Rolon DO Primary Care Provider Lucy Christopher DO Unavailable Encounter Details Date Type Department Care Team (Late st Contact Info) Description 06/26/2025 Telephone [facility] SLEEP LAB PRACTICE [address] [place] [phone] Demario Silva DO [address] [place] [address] Social History Tobacco Use Types Packs/Day Years [...] do you attend [facility] or shinto services? More than 4 times per year [...] encounter Miscellaneous Notes * Telephone Encounter - Rinku Bardales - 06/26/2025 1:54 PM EST 06-26-25: Attempted to contact patient to confirm appointment. Patient did not answer. documented in this encounter Plan of Treatment Upcoming Encounters Date Type Department Care Team (Late st Contact Info) Description 08/16/2025 10:00 AM EST Office Visit [facility] ENDOCRINOLOGY PRACTICE [address] 8th [place] [address] Brigitte Mahoney NP [address] [facility] [place] [address] 09/18/2025 1:30 PM EDT Office Visit [facility] RHEUMATOLOGY PRACTICE [address] 8th [place] [address] Suman Treviño MD [address] [facility]. [place] [id number] 12/13/2025 1:15 PM EDT Office Visit [facility] [address] 7th [place] [address] Janice Woodward, CLAU [address] [place] [address] documented as of this encounter Visit Diagnoses Not on filedocumented in this encounter Additional Health Concerns Assessment Noted Time PHQ-9 Depression Total Score: 0 07/24/19 23 3:00 PM EST documented as of this encounter Care Teams Clinical Exercise Specialist Relationship Specialty Start Date End Date Trevor Rolon DO [address] [facility] [address] [place] [address] PCP - General Lucy Christopher DO [address] [place] [address] Consulting Physician Oncology 10/17/24 documented as of this encounter
--- OUTSIDE RECORDS SUMMARY | 2025-07-07 18:55 | XMS_ITS | Encounter Summary ---
Author Organization [facility] nter Address [address] [place] [address] Care Team Providers Care Vp Platforms Name Role Phone Trevor Rolon DO Primary [...] HIGH MDM 40 MIN Laquita Corral PA [address] [facility] [address] [place] [address] Phone: tel: fax: Lupe Crisostomo DO [address] [place] [address] Phone: tel: fax: Referral ID Status Reason Start Date Expiration Date Visits Requested Visits Authorized [id number] Authorized Specialty Services Required 11/28/2024 11/28/2025 1 3 Encounter Details Date Type Department Care Team (Latest Contact Info) Description 11/28/2024 Community Orders [facility] Link [address] [place] [address] Laquita Corral PA [address] [facility] [address] [place] [address] Well woman exam with routine gynecological exam [...] How often do you attend chur or confucianism services? More than 4 times [...] Description 08/16/2025 10:00 AM EST Office Visit [facility] ENDOCRINOLOGY PRACTICE [address] 8th [place] [address] Brigitte Mahoney NP [address] [place] [facility] [address] 09/18/2025 1:30 PM EDT Office Visit [facility] RHEUMATOLOGY PRACTICE [address] 8th [place] [address] Suman Treviño MD [address] [facility]. [place] [address] 12/13/2025 1:15 PM EDT Office Visit [facility] OBGYN PRACTICE [address] 7th [place] [address] Janice Woodward NP [address] [place] [phone] Scheduled Referrals Name Type Priority Associated Diagnoses [...] documented as of this encounter Care Teams Vp Platforms Relationship Specialty Start Date End Date Trevor Rolon DO [address] [facility] [address] [place] [address] PCP - General Lucy Christopher DO [address] [facility] [place] [address] Consulting Physician Oncology 10/17/24 documented as of this encounter
--- OUTSIDE RECORDS SUMMARY | 2025-07-07 18:55 | XMS_ITS | Encounter Summary ---
Author Organization [facility] nter Address [address] [place] [address] Care Team Providers Care Automobile Repossessor Name Role Phone Trevor Rolon DO Primary Care Provider Lucy Christopher DO Unavailable Reason for Referral * Consultation (Routine) - Authorized Specialty Diagnoses / Procedures Referred By Truong bella Referred To Contact Hematology Diagnoses Monoclonal gammopathy Procedures [place] OFFICE/OUTPATIENT NEW SF MDM 15 MINUTES [place] OFFICE/OUTPATIENT NEW LOW MDM 30 MINUTES [place] OFFICE/OUTPATIENT NEW MODERATE MDM 45 MINUTES [place] OFFICE/OUTPATIENT NEW HIGH MDM 60 MINUTES MN OFFICE/OUTPATIENT ESTABLISHED SF MDM 10 MIN MN OFFICE/OUTPATIENT ESTABLISHED LOW MDM 20 MIN [place] OFFICE/OUTPATIENT ESTABLISHED MOD MDM 30 MIN [place] OFFICE/OUTPATIENT ESTABLISHED HIGH MDM 40 MIN Ben Knox MD [address] [facility] [place] [address] Phone: tel: fax: Referral ID Status Reason Start Date Expiration Date Visits Requested Visits Authorized [id number] Authorized Specialty Services Required 11/17/2024 11/17/2025 1 3 Encounter Details Date Type Department Care Team (Late st Contact Info) Description 11/17/2024 Orders Only [facility] NEUROLOGY PRACT[facility] [address], [address] [place] [address] Mary Cobos, CLAU [address] [place] [address] Monoclonal gammopathy (Primary Dx) Social [...] How often do you attend [facility] or mosque services? More than 4 times per year [...] Description 08/16/2025 10:00 AM EST Office Visit [facility] [address] 8th Floor [place] [address] Brigitte Mahoney, CLAU [address] [place] [address] 09/18/2025 1:30 PM EDT Office Visit [facility] RHEUMATOLOGY PRACTICE [address], 8th [place] [address] Suman Treviño MD [address] [facility]. [place] [address] 12/13/2025 1:15 PM EDT Office Visit [facility] OBGYN PRACTICE [address], 7th Floor Clinic [place] [address] Janice Woodward NP [address] [place] [facility] Scheduled Referrals Name Type Priority Associated Diagnoses Order Schedule Ambulatory referral/appointment with Hematology Outpatient Referral Routine Monoclonal gammopathy Expected: 11/17/2024 (Approximate), Expires: 11/17/2025 documented as of this encounter Visit Diagnoses Diagnosis Monoclonal gammopathy- Primary Monoclonal paraproteinemia documented in this encounter Additional Health Concerns Assessment Noted Time PHQ-9 Depression Total Score: 0 07/24/19 23 3:00 PM EST documented as of this encounter Care Teams Automobile Repossessor Relationship Specialty Start Date End Date Trevor Rolon DO [address] [facility] [address] [place] [address] PCP - General Lucy Christopher DO [facility] [address] [place] [address] Consulting Physician Oncology 10/17/24 documented as of this encounter
--- OUTSIDE RECORDS SUMMARY | 2025-07-07 18:55 | XMS_ITS | Encounter Summary ---
Author Organization [facility] nter Address [address] [place] [address] Care Team Providers Care Sinker Winder Name Role Phone Trevor Rolon DO Primary Care Provider Lucy Christopher DO Unavailable Encounter Details Date Type Department Care Team (Late st Contact Info) Description 06/25/2025 Abstract [facility] [address], 8th [place] [address] Brigitte Mahoney, CLAU [address] [place] [address] Social History Tobacco Use Types [...] 07/24/2022 How often do you attend [facility] or christianity services? More than 4 [...] Description 08/16/2025 10:00 AM EST Office Visit [facility] ENDOCRINOLOGY PRACTICE [address] 8th [place] [address] Brigitte Mahoney NP [address] [facility] [place] [phone] 09/18/2025 1:30 PM EDT Office Visit [facility] RHEUMATOLOGY PRACTICE [address], 8th Floor [place] [phone] Suman Treviño MD [address] [place] [address] 12/13/2025 1:15 PM EDT Office Visit [facility] OBGYN PRACTICE [address], 7th [place] [address] Janice Woodward NP [address] [place] [phone] documented as of this encounter Visit Diagnoses Not on filedocumented in this encounter Additional Health Concerns Assessment Noted Time PHQ-9 Depression Total Score: 0 07/24/19 23 3:00 PM EST documented as of this encounter Care Teams Sinker Winder Relationship Specialty Start Date End Date Trevor Rolon DO [address] [facility] [address] [place] [phone] PCP - General Lucy Christopher DO [address] [facility] [address] [facility] [place] [address] Consulting Physician Oncology 10/17/24 documented as of this encounter
--- OUTSIDE RECORDS SUMMARY | 2025-07-07 18:55 | XMS_ITS | Encounter Summary ---
Author Organization [facility] nter Address [address] [place] [address] Care Team Providers Care Brassiere Cup Mold Cutter Name Role Phone Trevor Rolon DO Primary Care Provider Lucy Christopher DO Unavailable Encounter Details Date Type Department Care Team (Late st Contact Info) Description 09/01/2024 Orders Only [facility] [address] 8th [place] [address] Brigitte Mahoney, CLAU [address] [place] [place] [address] Social History Tobacco Use Types [...] Description 08/16/2025 10:00 AM EST Office Visit [facility] ENDOCRINOLOGY PRACTICE [address], 8th Floor [place] [phone] Brigitte Mahoney NP [address] [facility] [place] [phone] 09/18/2025 1:30 PM EDT Office Visit [facility] RHEUMATOLOGY PRACTICE [address] 8th [place] [address] Suman Treviño MD [address] [facility] [address] 12/13/2025 1:15 PM EDT Office Visit [facility] OBGYN PRACTICE [address], 7th [place] [address] Janice Woodward NP [address] [place] [phone] documented as of this encounter Visit Diagnoses Not on filedocumented in this encounter Additional Health Concerns Assessment Noted Time PHQ-9 Depression Total Score: 0 07/24/19 23 3:00 PM EST documented as of this encounter Care Teams Brassiere Cup Mold Cutter Relationship Specialty Start Date End Date Trevor Rolon DO [address] [facility] [address] [place] [phone] PCP - General Lucy Christopher DO [address] [facility] [place] [facility] [address] Consulting Physician Oncology 10/17/24 documented as of this encounter
--- OUTSIDE RECORDS SUMMARY | 2025-07-07 18:55 | XMS_ITS | Encounter Summary ---
Author Organization [facility] nter Address [address] [place] [address] Care Team Providers Care Set Up Mechanic Automatic Line Name Role Phone Trevor Rolon DO Primary Care Provider Lucy Christopher DO Unavailable Reason for Referral * Consultation (Routine) - Authorized Specialty Diagnoses / Procedures Referred By Truong bella Referred To Contact Podiatry Diagnoses Left foot pain Procedures [place] OFFICE/OUTPATIENT NEW SF MDM 15 MINUTES [place] OFFICE/OUTPATIENT NEW LOW MDM 30 MINUTES [place] OFFICE/OUTPATIENT NEW MODERATE MDM 45 MINUTES [place] OFFICE/OUTPATIENT NEW HIGH MDM 60 MINUTES [place] OFFICE/OUTPATIENT ESTABLISHED SF MDM 10 MIN [place] OFFICE/OUTPATIENT ESTABLISHED LOW MDM 20 MIN [place] OFFICE/OUTPATIENT ESTABLISHED MOD MDM 30 MIN [place] OFFICE/OUTPATIENT ESTABLISHED HIGH MDM 40 MIN Laquita Corral PA [address] [facility] [address] [place] [address] Phone: tel: fax: Alexandr Zarate, DPM [address] [place] [address] Phone: tel: fax: Referral ID Status Reason Start Date Expiration Date Visits Requested Visits Authorized [id number] Authorized Specialty Services Required 10/27/2024 10/27/2025 1 3 Encounter Details Date Type Department Care Team (Late st Contact Info) Description 10/26/2024 Community Orders [facility] Link [address] [facility] [place] [address] Laquita Corral PA [address] [facility] [address] [place] [address] Arthralgia of left foot (Primary Dx); Left [...] PRACTICE [address] 8th [place] [address] Brigitte Mahoney NP [address] [facility] [place] [address] 09/18/2025 1:30 PM EDT Office Visit [facility] RHEUMATOLOGY PRACTICE [address] 8th [place] [address] Suman Treviño MD [address] [facility] [place] [address] 12/13/2025 1:15 PM EDT Office Visit [facility] OBGYN PRACTICE [address] 7th [place] [address] Janice Woodward NP [address] [place] [address] Scheduled Referrals Name Type Priority Associated Diagnoses Order Schedule Ambulatory referral/appointment with Podiatry Outpatient Referral Routine Left foot pain Expected: 10/27/2024 (Approximate), Expires: 10/27/2025 documented as of this encounter Results * (ABNORMAL) CBC (10/26/2024 1:37 PM EDT) [facility] Signature Auto WBC 4.5 3.8 - 11.0 10*3/uL [...] Final Re sult [facility] [address] [place] [address], [place] [phone] * Uric acid (10/26/2024 1:37 PM EDT) [...] Final Re sult Performing Organization Address City/[facility]/ZIP Co de Phone Number [facility] [address] [place] [address], [place] [phone] documented in this encounter Visit Diagnoses Diagnosis Arthralgia of left foot- Primary Left foot pain Pain in soft tissues of limb documented in this encounter Additional Health Concerns Assessment Noted Time PHQ-9 Depression Total Score: 0 07/24/19 23 3:00 PM EST documented as of this encounter Care Teams Set Up Mechanic Automatic Line Relationship Specialty Start Date End Date Trevor Rolon DO [address] [facility] [address] [place] [address] PCP - General Lucy Christopher DO [address] [facility] [address] [facility] [place] [address] Consulting Physician Oncology 10/17/24 documented as of this encounter
--- OUTSIDE RECORDS SUMMARY | 2025-07-07 18:55 | XMS_ITS | Encounter Summary ---
Author Organization [facility] Address [address] [place] [address] Care Team Providers Care Nip Wrapper Name Role Phone Trevor Rolon DO Primary Care Provider [phone] Mc Grant Unavailable El Agarwal APRN Unavailable Encounter Details Date Type Department Care Team (Late st Contact Info) Description 05/18/2025 [facility] [address] [facility] [address] [place] [address] Madyson Sarabia, RN [id number] [address] [place] [address] Social History Tobacco Use Types Packs/Day Years [...] Description 07/17/2025 8:45 AM EST Clinical Support [facility] [place] [address] [place] [address] 07/17/2025 10:30 AM EST Office Visit [facility] [place] [address] [facility] [address] [place] [address] Nj Johns MD [address] [facility] [address] [place] [address] documented as of this encounter Visit Diagnoses [...] documented as of this encounter Care Teams Nip Wrapper Relationship Specialty Start Date End Date Trevor Rolon DO [address] [address] PCP - General 11/22/20 06/03/25 Mc Grant [address] [facility] [address] [place] [address] Referring Physician Gastroenterology 02/21/24 El Agarwal APRN [id number] Referring Physician Gastroenterology 03/21/25 documented as of this encounter
--- OUTSIDE RECORDS SUMMARY | 2025-07-07 18:55 | XMS_ITS | Encounter Summary ---
Author Organization [facility] nter Address [address] [place] [address] Care Team Providers Care Grocery Clerk Checking Name Role Phone Trevor Rolon DO Primary Care Provider Lucy Christopher DO Unavailable Reason for Visit * Reason Comments Med Refill Encounter Details Date Type Department Care Team (Late st Contact Info) Description 09/14/[address] [facility] [address] 8[address] Floor Clinic [place] [phone] Lupe Villalta, FORGING PRESS LEVER TENDER [address] [facility] [place] [address] Other specified diabetes mellitus with [...] a intermediate (including now)? No 07/24/2022 Comments Unknown Sex [...] PRACTICE [address] 8[address] [place] [address] Brigitte Mahoney NP [address] [place] [address] 09/18/2025 1:30 PM EDT Office Visit [facility]UMAT[facility]Y [facility] [address] 8[address] Floor [place] [address] Suman Treviño MD [address] [facility]. [place] [address] 12/13/2025 1:15 PM EDT Office Visit [facility] [address], 7[address] Floor [place] [address] Janice Woodward, CLAU [address] [place] [phone] documented as of this encounter Visit Diagnoses Diagnosis Other specified diabetes mellitus with diabetic neuropathy, unspecified documented in this encounter Additional Health Concerns Assessment Noted Time PHQ-9 Depression Total Score: 0 07/24/19 23 3:00 PM EST documented as of this encounter Care Teams Grocery Clerk Checking Relationship Specialty Start Date End Date Trevor Rolon DO [address] [facility] [address] [place] [phone] PCP - General Lucy Christopher DO [address] [facility] [place] [address] Consulting Physician Oncology 10/17/24 documented as of this encounter
--- OUTSIDE RECORDS SUMMARY | 2025-07-07 18:55 | XMS_ITS | Encounter Summary ---
Author Organization [facility] nter Address [address] [place] [address] Care Team Providers Care Soda Column Operator Name Role Phone Trevor Rolon DO Primary Care Provider Lucy Christopher DO Unavailable Reason for Referral * Consultation (Routine) - Authorized Specialty Diagnoses / Procedures Referred By Truong bella Referred To Contact Rheumatology Diagnoses Psoriatic arthritis Procedures [place] OFFICE/OUTPAT[place] NEW [place] MDM 15 MINUTES [place] OFFICE/[place]PAT[place] NEW LOW MDM 30 MINUTES [place]PAT[place] NEW MODERATE MDM 45 MINUTES [place]PAT[place] NEW HIGH MDM 60 MINUTES [place] OFFICE/OUTPATIENT ESTABLISHED SF MDM 10 MIN [place] OFFICE/OUTPATIENT ESTABLISHED LOW MDM 20 MIN [place] OFFICE/OUTPATIENT ESTABLISHED MOD MDM 30 MIN [place] OFFICE/OUTPATIENT ESTABLISHED HIGH MDM 40 MIN Laquita Corral PA [address] [facility] [address] [place] [address] Phone: tel: fax: Suman Treviño MD [address] [place] [address] Phone: tel: fax: Referral ID Status Reason Start Date Expiration Date Visits Requested Visits Authorized [id number] Authorized Specialty Services Required 09/01/2024 09/01/2025 1 3 Encounter Details Date Type Department Care Team (Late st Contact Info) Description 09/01/2024 Community Orders EpicCare Link [address] [facility] [address] [place] [address] Laquita Corral PA [address] [facility] [address] [place] [address] Psoriatic arthritis (Primary Dx) Social History Tobacco [...] do you attend [facility] or evangelical services? More than 4 times [...] Description 08/16/2025 10:00 AM EST Office Visit [facility]ACT[facility] [address] 8[address] Floor [place] [address] Brigitte Mahoney NP [address] [place] [address] 09/18/2025 1:30 PM EDT Office Visit [facility]HE[facility]AT[facility] PRACTICE [address] 8th [place] [address] Suman Treviño MD [address] [facility]. [place] [address] 12/13/2025 1:15 PM EDT Office Visit [facility] OBGYN PRACTICE [address] 7th [place] [address] Janice Woodward NP [address] [place] [phone] Scheduled Referrals Name Type Priority Associated Diagnoses Order Schedule Ambulatory referral/appointment with Rheumatology Outpatient Referral Routine Psoriatic arthritis Expected: 09/01/2024 (Approximate), Expires: 09/01/2025 documented as of this encounter Visit Diagnoses Diagnosis Psoriatic arthritis- Primary Psoriatic arthropathy documented in this encounter Additional Health Concerns Assessment Noted Time PHQ-9 Depression Total Score: 0 07/24/19 23 3:00 PM EST documented as of this encounter Care Teams Soda Column Operator Relationship Specialty Start Date End Date Trevor Rolon DO [address] [facility] [place] [address] PCP - General Lucy Christopher DO [address] [facility] [place] [address] Consulting Physician Oncology 10/17/24 documented as of this encounter
--- OUTSIDE RECORDS SUMMARY | 2025-07-07 18:55 | XMS_ITS | Encounter Summary ---
Author Organization [facility] nter Address [address] [place] [address] Care Team Providers Care Corporate Aircraft Mechanic Name Role Phone Trevor Rolon DO Primary Care Provider Lucy Christopher DO Unavailable Reason for Referral * Imaging (Routine) - Closed Specialty Diagnoses / Procedures Referred By Conttrudy bella Referred To Contact Cardiology Diagnoses PAD (peripheral artery disease) Procedures US arterial doppler bilateral lower ext Vascular US lower extremity arterial Doppler complete Ben Knox MD [address] [place] [address] Phone: tel: fax: [facility] CARDIAC DIAGNOSTIC [address] 1st [place] [address] Phone: tel: fax: Referral ID Status Reason Start Date Expiration Date V isits Requested Visits Authorized [id number] Closed Perform Procedure 11/15/2024 11/15/2025 1 1 Encounter Details Date Type Department Care Team (Late st Contact Info) Description 11/15/2024 Orders Only [facility] NEUROLOGY PRACTICE [address] [address] Ben Knox MD [address] [place] [address] PAD (peripheral artery disease) (Primary [...] week 07/24/2022 How often do you attend [facility] or rastafarian services? More than 4 times [...] PRACTICE [address] 8th [place] [address] Brigitte Mahoney NP [address] [...] Dsouza MD 11/15/2024 02:41 PM EDT RPWorkstation: [id number] Ben Knox MD [facility] US PROCEDURES Final Result documented in this encounter Visit Diagnoses Diagnosis PAD (peripheral artery disease)- Primary Unspecified peripheral vascular disease PAD (peripheral artery disease) Unspecified peripheral vascular disease documented in this encounter Additional Health Concerns Assessment Noted Time PHQ-9 Depression Total Score: 0 07/24/19 23 3:00 PM EST documented as of this encounter Care Teams Corporate Aircraft Mechanic Relationship Specialty Start Date End Date Trevor Rolon DO [address] [facility] [address] [place] [address] PCP - General Lucy Christopher DO [address] [place] [address] Consulting Physician Oncology 10/17/24 documented as of this encounter
--- OUTSIDE RECORDS SUMMARY | 2025-07-07 18:55 | XMS_ITS | Encounter Summary ---
Author Organization [facility] Address [address] [place] [address] Care Team Providers Care Turntable Engineer Name Role Phone Trevor Rolon DO Primary Care Provider [phone] Mc Grant Unavailable [phone] El Agarwal APRN Unavailable [phone] Cely Diaz RN Unavailable Unavailable Jesus Luis MD Primary Care Provider [phone] Encounter Details Date Type Department Care Team (Late st Contact Info) Description 04/19/2025 Results Follow-Up [facility] [address] [facility] [address] [place] [phone] Madyson Sarabia, CORWNI [facility] LIVER NNA-[id number] [address] [place] [address] Social History Tobacco Use Types Packs/Day Years [...] any time in the past 12 m [facility], were you homeless or living in a assisted (including now)? No 06/04/2025 [facility] Utilities Answer Date Recorded In the [...] AM EST Clinical Support [facility] [place] [address] [facility] [address] [place] [address] 07/17/2025 10:30 AM EST Office Visit [facility] [place] [address] [facility] [address] [place] [address] Nj Johns MD [address] [facility] [address] [place] [address] documented as of this encounter Visit Diagnoses [...] documented as of this encounter Care Teams Turntable Engineer Relationship Specialty Start Date End Date Trevor Rolon DO [address] [address] PCP - General 11/22/20 06/03/25 [place] [address] PCP - General 06/04/25 Mc Grant [address] [facility] [address] [place] [address] Referring Physician Gastroenterology 02/21/24 El Agarwal APRN [address] Referring Physician Gastroenterology 03/21/25 Cely Diaz, RN VALUE-BASED TRANSFORMATION PROGRAM [place] Process Camera Operator 05/28/25 documented as of this encounter
--- OUTSIDE RECORDS SUMMARY | 2025-07-07 18:55 | XMS_ITS | Encounter Summary ---
Author Organization [facility] Address [address] [place] [address] Care Team Providers Care Trust Vault Clerk Name Role Phone Trevor Rolon DO Primary Care Provider [phone] Mc Grant Unavailable El Agarwal APRN Unavailable [phone] Encounter Details Date Type Department Care [...] as of this encounter Functional Status * Communicable Disease Screening Question Answer Date of Assessment Author Have you been in contact with someone who was sick? No / Unsure 05/18/2025 8:29 AM EST Ernie Quiles Do you have any of the following new or worsening symptoms? None of these 05/18/2025 8:29 AM EST Ernie Quiles * Travel Screening Question Answer Date of Assessment Author Have you traveled internationally or domestically in the last month? No 05/18/2025 8:29 AM EST Ernie Quiles documented as of this encounter Mental Status * Communicable Disease Screening Question Answer Entry Date Author Have you been in contact with someone who was sick? No / Unsure 05/18/2025 8:29 AM EST Cari Quiles Do you have any of the following new or worsening symptoms? None of these 05/18/2025 8:29 AM EST Cari Quiles * Travel Screening Question Answer Entry Date Author Have you traveled internationally or domestically in the last month? No 05/18/2025 8:29 AM Ernie Butts documented in this encounter Plan of Treatment Upcoming Encounters Date Type Department Care Team (Late st Contact Info) Description 07/17/2025 8:45 AM EST Clinical Support [facility] [address] [place] [address] 07/17/2025 10:30 AM EST Office Visit [facility] [address] [place] [address] Nj Johns MD [address] [place] [address] documented as of this encounter Visit Diagnoses [...] documented as of this encounter Care Teams Trust Vault Clerk Relationship Specialty Start Date End Date Trevor Rolon DO [address] [facility] 201 [place] [address] PCP - General 11/22/20 06/03/25 Mc Grant [address] [facility] 201 [place] [address] Referring Physician Gastroenterology 02/21/24 El Agarwal APRN [address] Referring Physician Gastroenterology 03/21/25 documented as of this encounter
--- OUTSIDE RECORDS SUMMARY | 2025-07-07 18:55 | XMS_ITS | Encounter Summary ---
Author Organization [facility] Address [address] [place] [address] Care Team Providers Care Handstitching Machine Armhole Feller Name Role Phone Trevor Rolon DO Primary Care Provider [phone] Mc Grant Unavailable El Agarwal APRN Unavailable [phone] Encounter Details Date Type Department Care Team (Late st Contact Info) Description 05/21/2025 Results Follow-Up [facility] [address] [facility], [address] [place] [address] Claire Davidson MD [address] [facility] [address] [place] [address] Social History Tobacco Use Types [...] Patient has Neurosurgery appointment for tomorrow 05/23. Claire Davidson MD Frit Maker, Department of Neurology Neuromuscular Medicine Program documented in this encounter Plan of Treatment Upcoming Encounters Date Type Department Care Team (Late st Contact Info) Description 07/17/2025 8:45 AM EST Clinical Support [facility] [place] [address] [place] [address] 07/17/2025 10:30 AM EST Office Visit [facility] [place] [address] [facility] [address] [place] [address] Nj Johns MD [address] [place] [address] documented as of this encounter Visit Diagnoses [...] documented as of this encounter Care Teams Handstitching Machine Armhole Feller Relationship Specialty Start Date End Date Trevor Rolon DO [address] [address] PCP - General 11/22/20 06/03/25 Mc Grant [address] [address] Referring Physician Gastroenterology 02/21/24 El Agarwal APRN [address] Referring Physician Gastroenterology 03/21/25 documented as of this encounter
--- OUTSIDE RECORDS SUMMARY | 2025-07-07 18:56 | XMS_ITS | Encounter Summary ---
Author Organization [facility] Address [address] [place] [address] Care Team Providers Care Career Development Director Name Role Phone Trevor Rolon DO Primary Care Provider [phone] Mc Grant Unavailable El Agarwal APRN Unavailable [phone] Encounter Details Date Type Department Care Team (Late st Contact Info) Description 05/14/2025 Telephone [facility] Radiology [address] [place] [address] Shelby Escamilla, RN [facility]-DIAGNOSTIC RADIOLOGY None Social History Tobacco Use Types Packs/Day Years [...] AM EST Clinical Support [facility] [place] [address] [place] [address] 07/17/2025 10:30 AM EST Office Visit [facility] [place] [address] [facility] [address] [place] [address] Nj Johns MD [address] [facility] [address] [place] [address] documented as of this encounter Visit Diagnoses [...] documented as of this encounter Care Teams Career Development Director Relationship Specialty Start Date End Date Trevor Rolon DO [address] [facility] 201 [place] [address] PCP - General 11/22/20 06/03/25 Mc Grant [address] [facility] 201 [place] [address] Referring Physician Gastroenterology 02/21/24 El Agarwal APRN [address] Referring Physician Gastroenterology 03/21/25 documented as of this encounter
--- OUTSIDE RECORDS SUMMARY | 2025-07-07 18:56 | XMS_ITS | Encounter Summary ---
Author Organization [facility] nter Address [address] [place] [address] Care Team Providers Care Cone Classifier Tender Name Role Phone Trevor Rolon DO Primary Care Provider Lucy Christopher DO Unavailable Reason for Visit * Reason Comments Med Refill Encounter Details Date Type Department Care Team (Late st Contact Info) Description 10/05/2022 Refill [facility]OLOGY [facility]ACT[facility] [address], 2nd [place] [address] Mc Grant DO [address] [place] [address] Encephalopathy, hepatic Social History Tobacco [...] How often do you attend chur or amish services? More than 4 times per year [...] a penitentiary (including now)? No 07/24/2022 Comments Unknown Sex [...] PRACTICE [address], 8th [place] [address] Brigitte Mahoeny NP [address] [place] [address] 09/18/2025 1:30 PM EDT Office Visit [facility] RHEUMATOLOGY [facility]ACTICE [address] 8th [place] [address] Suman Treviño MD [address] [facility]. [place] [address] 12/13/2025 1:15 PM EDT Office Visit [facility] OBGYN [facility] [address] 7th [place] [address] Janice Woodward, CLAU [address] [place] [address] documented as of this encounter Visit Diagnoses Diagnosis Encephalopathy, hepatic Hepatic encephalopathy documented in this encounter Additional Health Concerns Assessment Noted Time PHQ-9 Depression Total Score: 0 07/24/19 23 3:00 PM EST documented as of this encounter Care Teams Cone Classifier Tender Relationship Specialty Start Date End Date Trevor Rolon DO [address] [facility] [address] [place] [phone] PCP - General Lucy Christopher DO [address] [facility] Katie [place] [address] Consulting Physician Oncology 10/17/24 documented as of this encounter
--- OUTSIDE RECORDS SUMMARY | 2025-07-07 18:56 | XMS_ITS | Encounter Summary ---
Author Organization [facility] Address [address] [place] [address] Care Team Providers Care Desktop Support Manager Name Role Phone Trevor Rolon DO Primary Care Provider [phone] Mc Grant Unavailable [phone] El Agarwal APRN Unavailable [phone] Encounter Details Date Type Department Care [...] as of this encounter Functional Status * Travel Screening Question Answer Date of Assessment Author Have you traveled internatio rachel or domestically in the last month? No 05/21/2025 7:48 PM EST Mycha rt, Generic documented as of this encounter Mental Status * Travel Screening Question Answer Entry Date Author Have you traveled internatio rachel or domestically in the last month? No 05/21/2025 7:48 PM EST Mycha rt, Generic documented in this encounter Plan of Treatment Upcoming Encounters Date Type Department Care Team (Late st Contact Info) Description 07/17/2025 8:45 AM EST Clinical Support [facility] [place] [address] [place] [address] 07/17/2025 10:30 AM EST Office Visit [facility] [place] [address] [place] [address] Nj Johns MD [address] [facility] [address] [place] [address] documented as of this encounter Visit Diagnoses [...] documented as of this encounter Care Teams Desktop Support Manager Relationship Specialty Start Date End Date Trevor Rolon DO [address] [facility] 201 [place] [address] PCP - General 11/22/20 06/03/25 Mc Grant [address] [facility] 201 [place] [address] Referring Physician Gastroenterology 02/21/24 El Agarwal APRN [address] Referring Physician Gastroenterology 03/21/25 documented as of this encounter
--- OUTSIDE RECORDS SUMMARY | 2025-07-07 18:56 | XMS_ITS | Encounter Summary ---
Author Organization [facility] Address [address] [place] [address] Care Team Providers Care Balloon Tester Name Role Phone Trevor Rolon DO Primary Care Provider [phone] Mc Grant Unavailable El Agarwal APRN Unavailable [phone] Encounter Details Date Type Department Care [...] Assessment Author Have you been in contact wit h someone who was sick? No / Unsure 05/22/2025 10:52 AM EST Rut, Yaw T Do you have any of the follo wing new or worsening symptoms? None of these 05/22/2025 10:52 AM EST Rut, Ya w T * Travel Screening Question Answer Date of Assessment Author Have you traveled internatio rachel or domestically in the last month? No 05/22/2025 10:52 AM EST Odur o, Yaw T documented as of this encounter Mental Status * Communicable Disease Screening Question Answer Entry Date Author Have you been in contact wit h someone who was sick? No / Unsure 05/22/2025 10:52 AM EST Rut, Yaw T Do you have any of the follo wing new or worsening symptoms? None of these 05/22/2025 10:52 AM EST Rut, Ya w T * Travel Screening Question Answer Entry Date Author Have you traveled internatio rachel or domestically in the last month? No 05/22/2025 10:52 AM EST Odur o, Yaw T documented in this encounter Plan of Treatment Upcoming Encounters Date Type Department Care Team (Late st Contact Info) Description 07/17/2025 8:45 AM EST Clinical Support [facility] [address] [place] [address] 07/17/2025 10:30 AM EST Office Visit [facility] [address] [place] [address] Nj Johns MD [address] [place] [address] documented as of this encounter Visit Diagnoses [...] documented as of this encounter Care Teams Balloon Tester Relationship Specialty Start Date End Date Trevor Rolon DO [address] [facility] 201 [place] [address] PCP - General 11/22/20 06/03/25 Mc Grant [address] [facility] [address] [place] [address] Referring Physician Gastroenterology 02/21/24 El Agarwal APRN [address] Referring Physician Gastroenterology 03/21/25 documented as of this encounter
--- OUTSIDE RECORDS SUMMARY | 2025-07-07 18:56 | XMS_ITS | Encounter Summary ---
Author Organization [facility] nter Address [address] [place] [address] Care Team Providers Care Continuous Mining Operator Name Role Phone Trevor Rolon DO Primary Care Provider Lucy Christopher DO Unavailable Encounter Details Date Type Department Care Team (Late st Contact Info) Description 12/10/2022 Orders Only [facility] [address] 8th [place] [address] Lupe Villalta, DATACAP DEVELOPER [address] [facility] [place] [address] Social History Tobacco Use [...] How often do you attend chur or scientology services? More than 4 times per year 07/24/2022 Do you belong to any clubs o r organizations such as amish groups, unions, fraternal or athletic groups, or [...] PRACTICE [address] 8th [place] [address] Brigitte Mahoney NP [facility] [address] [facility] [place] [address] 09/18/2025 1:30 PM EDT Office Visit [facility] [address] 8th [place] [address] Suman Treviño MD [address] [facility]. Katie JAVIER [facility] 12/13/2025 1:15 PM EDT Office Visit [facility] [address] 7[address] Floor [place] [address] Janice Woodward, DATACAP DEVELOPER [address] [place] [address] documented as of this encounter Visit Diagnoses Not on filedocumented in this encounter Additional Health Concerns Assessment Noted Time PHQ-9 Depression Total Score: 0 07/24/19 23 3:00 PM EST documented as of this encounter Care Teams Continuous Mining Operator Relationship Specialty Start Date End Date Trevor Rolon DO [address] [facility] [address] [place] [address] PCP - General Lucy Christopher DO [address] [place] [address] Consulting Physician Oncology 10/17/24 documented as of this encounter
--- OUTSIDE RECORDS SUMMARY | 2025-07-07 18:56 | XMS_ITS | Encounter Summary ---
Author Organization [facility] Address [address] [place] [address] Care Team Providers Care Cnc Mill Set Up Operator Name Role Phone Trevor Rolon DO Primary Care Provider Mc Grant Unavailable El Agarwal APRN Unavailable [phone] Encounter Details Date Type Department Care Team (Late st Contact Info) Description 05/17/2025 Telephone [facility] Radiology [address] [place] [address] Shelby Escamilla, RN [facility]-DIAGNOSTIC RADIOLOGY None Social [...] Description 07/17/2025 8:45 AM EST Clinical Support [facility] [place] [address] [place] [id number] 07/17/2025 10:30 AM EST Office Visit [facility] [place] [address] [facility] [address] [place] [address] Nj Johns MD [address] [facility] [address] [place] [phone] documented as of this encounter Visit Diagnoses [...] documented as of this encounter Care Teams Cnc Mill Set Up Operator Relationship Specialty Start Date End Date Trevor Rolon DO [address] [facility] [address] [place] [address] PCP - General 11/22/20 06/03/25 Mc Grant [address] [facility] [address] [place] [address] Referring Physician Gastroenterology 02/21/24 El Agarwal APRN [id number] Referring Physician Gastroenterology 03/21/25 documented as of this encounter
--- OUTSIDE RECORDS SUMMARY | 2025-07-07 18:56 | XMS_ITS | Clinical Summary ---
Author Organization [facility] Address [address] [place] [address] Care Team Providers Care Calciner Feeder Name Role Phone Mc Grant Unavailable [phone] El Agarwal APRN Unavailable [phone] Cely Diaz RN Unavailable Unavailable Jesus Luis MD Primary Care Provider + [phone] Allergies Active Allergy Reactions Criticality Noted Date Comments Sulfamethoxazole-Trimet hoprim Hives Medium 05/29/2025 Pt reports full body hives Povidone Iodine Itching,Rash Medium 07/24/2015 With Betadine (topical). Vortioxetine Itching,Rash Medium 04/09/2020 Wound Dressing Adhesive Other - please document in the comment field Medium 11/12/2021 Breaks out where skin comes in contact with adhesive. Prevents wound healing if over a wound (e.g., incision opened up where covering incision from breast reduction surgery). Medications lansoprazole (Prevacid) [address] capsule Take 1 capsule by mouth daily. 08/18/19 23 Active ergocalcifero l (Vitamin D-2) 1.25 MG (32496 UT) capsule Take 1 capsule by mouth 1 time per week. Take on Wednesday04/09/20 20 Active diclofenac (Voltaren) 1 % topical gel Place 2 g on the skin 4 times a day as needed (joint pain). 03/24/20 22 Active Jardiance 25 MG Take 1 tablet by mouth daily. 05/13/20 23 Active busPIRone (Buspar) 7.5 MG tablet Take 1 tablet by mouth 2 times a day. 09/20/19 25 Active Ozempic, 1 MG/DOSE, 4 MG/3ML solution pen-injector Inject 1 mg under the skin 1 time per week. 09/20/19 25 Active oxyCODONE (Roxicodone) 5 MG immediate release tablet Take 1.5 tablets by mouth 3 times a day. 02/13/20 25 Active valACYclovir (Valtrex) 500 MG tablet Take 1 tablet by mouth every morning. Active cyclobenzapri ne (Flexeril) 10 MG tablet Take 1 tablet by mouth 3 times a day as needed for muscle spasms. 03/27/20 25 Active zinc sulfate (Zincate) 220 (50 Zn) MG capsuleIndica tions:End-sta ge liver disease (CMS/HCC) Take 1 capsule by mouth 2 times a day. 240 capsule 2 05/18/20 25 026 Active desvenlafaxin e (Pristiq) 50 MG 24 hr tablet Take 1 tablet by mouth daily. Do not crush, chew, or split. Active insulin glargine (Lantus) 100 UNIT/ML injection vial Inject 10 Units under the skin every morning. If blood sugar is greater than 150 Active insulin aspart (NovoLOG) 100 UNIT/ML injection vial Inject under the skin 3 (three) times daily with meals per correction scale as follows: blood sugar 150-199 use 1 unit, 200-249 use 2 units, 250-299 use 3 units, 300-349 use 4 units, 350-399 use 5 units, >399 use 6 units and call provider. Max daily dose 50 units. 05/31/20 25 Active hydrOXYzine pamoate (Vistaril) 25 MG capsule Take 1 capsule by mouth as needed for itching. Active Rimegepant Sulfate (NURTEC PO) Take 1 tablet by mouth as needed. Active ondansetron (Zofran) 8 MG tablet Take 1 tablet by mouth every 8 hours as needed for nausea or vomiting. Active promethazine (Phenergan) 25 MG tablet Take 1 tablet by mouth every 6 hours as needed for nausea or vomiting. Active FeroSul 325 (65 Fe) MG tablet Take 1 tablet by mouth every other day. 07/02/20 Active lactulose (Chronulac) 10 GM/15ML oral solution Take 45 mL by mouth 3 times a day. You may increase it to 30 gm ( 45 ml ) 6 times daily if you have constipation or slowly decrease it to 10 gm ( 15 ml ) three times daily if you have diarrhea. 4050 mL 07/02/20 Active magnesium oxide (Mag-Ox) 400 (240 Mg) MG tablet Take 1 tablet by mouth 2 times a day. 60 tablet 07/02/20 Active metoprolol succinate XL (Toprol-XL) 50 MG 24 hr tablet Take 0.5 tablets by mouth every morning. Do not crush or chew. 07/02/20 Active rOPINIRole (Requip) 1 MG tablet Take 2 tablets by mouth nightly. 07/02/20 Active spironolacton e (Aldactone) 100 MG tablet Take 1 tablet by mouth daily. May take extra pill at 3 pm with bumex if you gain wt > 3 lbs 30 each 07/02/20 Active acetaminophen (Tylenol) 500 MG tablet Take 1 tablet by mouth every 8 hours as needed for pain. 90 tablet 07/02/20 Active pregabalin (Lyrica) 25 MG capsule Take 1 capsule by mouth nightly. 07/02/20 Active bumetanide (Bumex) 2 MG tablet Take 1 tablet by mouth 2 times a day. 60 tablet 07/02/20 Active rOPINIRole (Requip) 1 MG tablet Take 1 tablet by mouth 3 times a day. 07/20/19 Discontinued FeroSul 325 (65 Fe) MG tablet Take 1 tablet by mouth daily. 04/27/20 025 Discontinued spironolacton e (Aldactone) 100 MG tablet Take 1 tablet by mouth 2 times a day. 09/08/19 025 Discontinued pregabalin (Lyrica) 25 MG capsule Take 1 capsule by mouth 2 times a day. 02/24/20 025 Discontinued lactulose (Chronulac) 10 GM/15ML oral solution Take 15 mL by mouth daily. 03/20/20 025 Discontinued diphenhydrAMI NE (Benadryl) 50 MG tablet - 50 mg PO 1 hour prior to the CT scan on 05-25-25 1 tablet 05/17/20 025 Discontinued(T herapy completed) predniSONE (Deltasone) 50 MG tablet 50 mg PO, 13, 7, and [address] to the [address] Scan on 05-25-25. 3 tablet 05/18/20 025 Discontinued(T herapy completed) lisinopril 2.5 MG tablet Take 1 tablet by mouth daily. Discontinued(S top Taking at Discharge) metoprolol succinate XL (Toprol-XL) 50 MG 24 hr tablet Take 1 tablet by mouth every morning. Do not crush or chew. Discontinued bumetanide (Bumex) 1 MG tablet Take 2 tablets by mouth 2 times a day. 120 tablet 05/31/20 Discontinued magnesium oxide (Mag-Ox) 400 (240 Mg) MG tablet Take 1 tablet by mouth 2 times a day. 60 tablet 05/31/20 Discontinued rifAXIMin (Xifaxan) 550 MG tabletIndicat ions:Encephal opathy, hepatic (CMS/HCC) Take 1 tablet by mouth 2 times a day. Medicaid Applicant 180 tablet 05/31/20 Discontinued(E ntered in Error) bumetanide (Bumex) 1 MG tablet Take 2 tablets by mouth 2 times a day. 120 tablet 07/02/20 Discontinued Active Problems Problem Noted Date Diagnosed Date Hypotension, unspecified hypotension type 2024 KENDRA (acute kidney injury) 06/22/2025 End-stage liver disease 06/22/2025 Transaminitis 05/24/2025 Coagulopathy 05/24/2025 Other sleep disorders 03/28/2025 Calcaneal spur, right foot 03/27/2025 Achilles tendinitis, left leg 03/27/2025 Congestive heart failure 03/20/2025 Angiodysplasia of stomach and duodenum without b leeding 03/19/2025 Unspecified injury of left lower leg, initial en counter 03/16/2025 Unspecified injury of head, initial encounter Fall on same level, unspecified, initial encount er 03/16/2025 Abrasion, left knee, initial encounter Unspecified cataract 03/15/2025 Polyneuropathy, unspecified 02/27/2025 Cramp and spasm 02/22/2025 Spinal stenosis, lumbar endy on without neurogenic claudication 02/20/2025 Snoring 01/24/2025 Thoracic spondylosis without myelopathy 01/24/20 25 Chronic pain 01/23/2025 Mild cognitive impairment 01/22/2025 Dry eye syndrome of bilateral lacrimal glands Age-related nuclear cataract, bilateral 01/05/20 25 Diaphragmatic hernia without obstruction or gang gurvinder 12/15/2024 Regular astigmatism, bilateral 12/05/2024 Presbyopia 12/05/2024 Thrombocytopenia, unspecified 11/28/2024 Copper deficiency 11/28/2024 Dietary zinc deficiency 11/28/2024 Essential hypertension 11/27/2024 Calcaneal spur, left foot 11/27/2024 Syncope and collapse 11/20/2024 Peripheral vascular disease, unspecified 025 Paroxysmal atrial fibrillation 11/13/2024 Rheumatic disorders of both mitral and tricuspid valves 11/01/2024 Nutritional anemia, unspecified 10/17/2024 Hypertensive retinopathy of both eyes 10/10/2024 Retinal scar of right eye 10/10/2024 Segmental and somatic dysfunction 09/26/2024 Shortness of breath 09/12/2024 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, left hand 08/17/2024 Abnormal electrocardiogram (ECG) (EKG) Iron (Fe) deficiency anemia 05/18/2024 Cervical radiculopathy 03/02/2023 Lumbar radiculopathy 09/09/2022 Myalgia, unspecified site 09/09/2022 Lumbosacral spondylosis without myelopathy 09/09 Diplopia 08/28/2022 Iritis 08/25/2022 Restless leg syndrome 08/25/2022 Serratia infection 08/25/2022 Sleep apnea 08/25/2022 Spinal abscess 08/25/2022 Visual field defect 08/25/2022 Dry eyes, bilateral 08/25/2022 Ocular migraine 08/25/2022 Overweight 08/17/2022 Anasarca 07/23/2022 Volume overload 07/23/2022 Other cirrhosis [...] experienced similar symptoms and her GI in [place] started her on Xifaxan, which reportedly resolved the symptoms, despite a recurrence in October 2021. Her symptoms today have since significantly resolved, per patient. She states she has had no lapses in taking her medication during these periods, although today she is out of the medication and her GI in [place] has discharged her from the practice due to no-show visits. Dr. Rolon in [place] was called to see if he will Rx the medication. Referral to [facility] was made. Patient also has [...] back pain 07/25/2015 Anxiety and depression 07/24/2015 Type 2 diabetes mellitus 07/24/2015 Hyperlipemia 07/24/2015 Psoriasis 07/24/2015 Psoriatic arthritis 07/24/2015 Ruptured disk 07/24/2015 Resolved Problems Problem Noted Date Diagnosed Date Resolved Date Sepsis, due to unspecified o rganism, unspecified whether acute organ dysfunction present 05/24/2025 05/27/2025 Other hypersomnia 03/28/2025 05/30/2025 Pain in right foot 03/27/2025 5 Pain in left knee 03/16/2025 05/30/2025 Other abnormalities of breathing 01/24/2025 05/30/2025 Pain in left foot 09/12/2024 05/30/2025 Pain in right arm 08/17/2024 05/30/2025 High blood pressure 08/25/2022 05/30/20 25 Myopia of both eyes 08/25/2022 04/01/20 25 Nuclear sclerotic cataract of both eyes 08/25/2022 04/01/2025 Encounters Date Type Department Care Team Description 07/03/2025 Patient Outreach [facility] [address] [facility], [address] [place] [phone] Alicia Vyas, RN TCM 06/29/2025 Orders Only [facility] [address] [place] [phone] Cari Perry, PharmD 06/29/2025 Travel 06/27/2025 Travel 06/26/2025 Travel 06/25/2025 4:58 PM EST - 07/02/2025 1:30 PM EST Hospital Encounter [facility] [address] [place] [id number] Breanna Soares MD Elhelw, Mohamed E, MD Aung, MD Dutch Persaud Lakshmi R, MD Hypotension, unspecified hypotension type (Primary Dx); Cirrhosis of liver without ascites, unspecified hepatic cirrhosis type; KENDAR (acute kidney injury); Encephalopathy, hepatic (CMS/HCC); End-stage liver disease (CMS/HCC); Abnormal electrocardiogram (ECG) (EKG) Discharge Disposition: Home or Self Care 06/25/2025 1:30 PM EST - 06/25/2025 4:57 PM EST Hospital Encounter [facility] [address] [place] [address] Hypervolemia, unspecified hypervolemia type (Primary Dx); End-stage liver disease (CMS/HCC); KENDRA (acute kidney injury); 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; GOOD (nonalcoholic steatohepatitis); Other cirrhosis of liver (CMS/HCC) Discharge Disposition: Home or Self Care 06/25/2025 Travel 06/24/2025 Travel 06/22/2025 Orders Only [facility] [address] [place] [phone] Nj Johns MD End-stage liver disease (CMS/HCC) (Primary Dx); KENDRA (acute kidney injury); Hypervolemia, unspecified hypervolemia type 06/22/2025 Telephone [facility] [address] [place] [phone] Madyson Sarabia RN 06/19/2025 Patient Outreach [facility] [address] [place] [address], [address] [place] [address] Cely Diaz RN CM 06/14/2025 Patient Outreach [facility] [address] [place] [address], [address] [place] [address] Cely Diaz, RN [facility] 06/13/2025 10:54 AM EST - 06/13/2025 11:59 PM [facility] Hospital Encounter [facility] [address] [phone] Encounter for screening mammogram for malignant neoplasm of breast Discharge Disposition: Home or Self Care 06/13/2025 Travel 06/13/2025 Telephone [facility] [address], [address] [place] [address] Claire Davidson MD Is follow up/Emg still needed 06/06/2025 Travel 06/04/2025 Patient Outreach [facility] [address], [address] [place] [address] Cely Diaz, RN [facility] 06/04/2025 Telephone [facility] [address], [address] [place] [address] Arti Chaudhry RN 05/30/2025 Travel 05/29/2025 Travel 05/28/2025 Patient Outreach [facility] [address] [place] [address] Cely Diaz, RN [facility] 05/28/2025 Patient Outreach [facility] [address] [place] [address] Sue, [address] [place] [address] Michael De La Vega 05/28/2025 Travel 05/25/2025 Patient Outreach [facility] [address] [place] [address] [address], [address] [place] [address] Hemalatha Kee 05/25/2025 Travel 05/24/2025 3:09 AM EST - 05/31/2025 2:49 PM EST Hospital Encounter [facility] [address] 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; Encephalopathy, hepatic (CMS/HCC); Abnormal electrocardiogram (ECG) (EKG); Abrasion, left knee, initial encounter Discharge Disposition: Home or Self Care 05/24/2025 Travel 05/23/2025 Orders Only External Location [address] [place] [address] Provider, External 05/23/2025 Orders Only External Location [address] [place] [address] Provider, External 05/22/2025 11:15 AM EST Consult [facility] [address], [address] [place] [phone] Nigel Recinos MD Lumbar radiculopathy (Primary Dx); Cervical spondylosis with myelopathy 05/22/2025 10:40 AM EST - 05/22/2025 11:59 PM EST Hospital Encounter [facility] [address], [address] [place] [phone] Lumbar radiculopathy; Cervical spondylosis with myelopathy Discharge Disposition: Home or Self Care 05/22/2025 Travel 05/21/2025 Travel 05/21/2025 Results Follow-Up [facility] [address], [address] [place] [address] Claire Davidson MD 05/18/2025 2:00 PM EST Pharmacist Visit [facility] [address] [place] [phone] Jemma Mancuso, PharmD Encounter for pre-transplant evaluation for liver transplant (Primary Dx) 05/18/2025 1:30 PM EST Hospital Encounter [facility] [address], [address] [place] [phone] End-stage liver disease (CMS/HCC) Discharge Disposition: Home or Self Care 05/18/2025 1:30 PM EST Hospital Encounter [facility] [address], [address] [place] [address] End-stage liver disease (CMS/HCC) Discharge Disposition: Home or Self Care 05/18/2025 1:00 PM EST - 05/18/2025 1:29 PM EST Hospital Encounter [facility] [address] [place] [address] End-stage liver disease (CMS/HCC) Discharge Disposition: Home or Self Care 05/18/2025 11:30 AM EST Social Work [facility] [address] [phone] Thuy Dasilva, STACKER OPERATOR 05/18/2025 10:50 AM EST Office Visit [facility] [address] [place] [phone] Nj Johns MD Metabolic syndrome (Primary Dx); End-stage liver disease (CMS/HCC); Other ascites; Hepatic encephalopathy (CMS/HCC); Elevated alkaline phosphatase level 05/18/2025 9:30 AM EST Clinical Support [facility] [address] [phone] Kaley Almanza, RD 05/18/2025 Refill [facility] [address] [phone] Madyson Sarabia, RN 05/18/2025 Travel 05/17/2025 Telephone [facility] [address] [place] [address] Shelby Escamilla, RN 05/17/2025 Refill [facility] [address] [phone] Madyson Sarabia, RN 05/14/2025 1:04 PM EST - 05/14/2025 11:59 PM EST Hospital Encounter [facility] [address] [place] [address] Lumbosacral radiculopathy Discharge Disposition: Home or Self Care 05/14/2025 Telephone [facility] [address] [place] [address] Shelby Escamilla RN 05/14/2025 Travel 05/08/2025 Travel 04/19/2025 Results Follow-Up [facility] [address] [place] [phone] Madyson Sarabia, CORWIN 04/12/2025 Telephone [facility] [address] [facility] [address] [place] [phone] Madyson Sarabia, CORWIN from Last 3 Months Immunizations Immunization Administration Dates Next Due Hep A / Hep B 09/13/2020 Influenza, injectable, quadrivalent, preservativ e free 04/08/2023,05/21/2022 Influenza, seasonal, injectable, preservative fr ee 06/01/2025 Family History Medical History Relation Name Comments Cancer Brother Diabetes Brother Hypertension Brother Cardiac disorder Father Cataracts Father Conversions - Other Father Back pro blem Heart attack Father Hypertension Father Stroke Maternal Grandfather Diabetes Maternal Grandmother Cancer Mother Cataracts Mother Hypertension Mother Non-Hodgkin's lymphoma Mother Breast cancer Mother's Sister Hypertension Paternal Grandfather Cardiac disorder Paternal Grandmother [...] any time in the past [facility], were you homeless or living in a fci (including now)? No 06/26/2025 [facility] Utilities Answer Date Recorded In the past 12 months has th e Nov[employer], gas, oil, or water [employer] threatened to shut off services in your [...] Mass Index 35.05 07/02/2025 8:00 AM EST Plan of Treatment Upcoming Encounters Date Type Department Care Team (Late st Contact Info) Description 07/17/2025 8:45 AM EST Clinical Support [facility] [address] [place] [phone] 07/17/2025 10:30 AM EST Office Visit [facility] [address] [place] [address] Nj Johns MD [address] [facility] [address] [place] [address] Health Maintenance Due Date Last Done Comments [facility]-Infant/Child/Adol SDOH Screenings 1970 Diabetes: Dental Exam 10/17/1979 [facility]-DTaP,Tdap,and Td Vaccines (1 - Tdap) 1988 [...] Hep B Twinrix 3-dose series) 10/11/2020 09/13/2020 [id number] Vaccine (2 - Moderna risk series) 01/21/2021 12/24/2020 [facility]-Diabetes: Hemoglobin A1C 11/15/202501/2025, 02/26/2025, 06/01/2024, Additional history exists [facility]- SDOH Screenings 12/25/2025 [facility]-Adult SDOH Screenings 12/25/2025 06/26/2025 [facility]-Depression Screening 05/18/2026 05/18/2025, 03/13 [facility]-Breast Cancer Screening 06/13/202709/2024, 02/15/2024, 04/16/2015, Additional history exists [facility]-Cervical Cancer Screening 12/13/2027 [facility]-Pap Smear 12/13/2027 12/12/2024 Colonoscopy 07/31/2032 07/31/2022, 06/18/2020 [facility]-Colorectal Cancer Screening 07/31/2032 [facility]-Hepatitis C Screening Completed 2024, 03/27/2025, 09/08/2024, Additional history exists [facility]-HIV Screening Completed 05/18/2025, 09/08/2019 [facility]-Influenza Vaccine Completed 06/01/2025 , 04/08/2023, 05/21/2022 [facility]-Obesity Intervention Completed , 06/25/2025, 05/24/2025, Additional history exists HPV Vaccines (No Doses Required) Completed [facility]-HIB Vaccines Aged Out No longer e ligible based on patient's age to complete this topic [facility]-IPV Vaccines Aged Out No longer e ligible based on patient's age to complete this topic [facility]-Rotavirus Vaccines Aged Out No lo nger eligible based on patient's age to complete this topic Goals Goal Patient Goal Type Associated Problems [...] levels Care Plan Symptom management On track( 025 2:42 PM EST) Cely Patricia RN Consistently take Medications as Prescribed- rifaximin Care Plan Med Adherence Not on track( 3:04 PM EST) No Cely Diaz RN Patient to follow-up with medication assistance program,[facility] Care Plan Med Adherence Not on track( 3:04 PM EST) No Cely Diaz RN Procedures Procedure Name Priority Date/Time Associated Diagnosis Comments POCT GLUCOSE METER UNSOLICITED RESULTS Routine 07/02/2025 12:13 PM EST POCT GLUCOSE METER UNSOLICITED RESULTS Routine 07/02/2025 7:52 AM EST PROTHROMBIN TIME(PT) / INR Routine 07/02/2025 5:27 AM EST MAGNESIUM, PLASMA Routine 07/02/2025 5:2 7 AM EST COMPREHENSIVE METABOLIC PANEL, PLASMA Routine 07/02/2025 5:27 AM EST CBC W/O DIFFERENTIAL Routine 07/02/2025 5:27 AM EST POCT GLUCOSE METER UNSOLICITED RESULTS Routine 07/01/2025 7:53 PM EST POCT GLUCOSE METER UNSOLICITED RESULTS Routine 07/01/2025 5:23 PM EST POCT GLUCOSE METER UNSOLICITED RESULTS Routine 07/01/2025 12:14 PM EST POCT GLUCOSE METER UNSOLICITED RESULTS Routine 07/01/2025 7:57 AM EST PROTHROMBIN TIME(PT) / INR Routine 07/01/2025 2:44 AM EST MAGNESIUM, PLASMA Routine 07/01/2025 2:4 4 AM EST COMPREHENSIVE METABOLIC PANEL, PLASMA Routine 07/01/2025 2:44 AM EST CBC W/O DIFFERENTIAL Routine 07/01/2025 2:44 AM EST POCT GLUCOSE METER UNSOLICITED RESULTS Routine 06/30/2025 8:25 PM EST POCT GLUCOSE METER UNSOLICITED RESULTS Routine 06/30/2025 4:59 PM EST POCT GLUCOSE METER UNSOLICITED RESULTS Routine 06/30/2025 12:03 PM EST POCT GLUCOSE METER UNSOLICITED RESULTS Routine 06/30/2025 8:09 AM EST PROTHROMBIN TIME(PT) / INR Routine 06/30/2025 2:22 AM EST MAGNESIUM, PLASMA Routine 06/30/2025 2:2 2 AM EST COMPREHENSIVE METABOLIC PANEL, PLASMA Routine 06/30/2025 2:22 AM EST CBC W/O DIFFERENTIAL Routine 06/30/2025 2:22 AM EST POCT GLUCOSE [...] / INR Routine 06/29/2025 3:39 AM EST MAGNESIUM, PLASMA Routine 06/29/2025 3:3 9 AM EST COMPREHENSIVE METABOLIC PANEL, PLASMA Routine 06/29/2025 3:39 AM EST CBC W/O DIFFERENTIAL Routine 06/29/2025 3:39 AM EST POCT GLUCOSE [...] / INR Routine 06/28/2025 6:15 AM EST MAGNESIUM, PLASMA Routine 06/28/2025 6:1 5 AM EST COMPREHENSIVE METABOLIC PANEL, PLASMA Routine 06/28/2025 6:15 AM EST CBC W/O DIFFERENTIAL Routine 06/28/2025 6:15 AM EST LACTATE, VENOUS [...] / INR Routine 06/27/2025 3:04 AM EST COMPREHENSIVE METABOLIC PANEL, PLASMA Routine 06/27/2025 3:04 AM EST CBC W/O DIFFERENTIAL Routine 06/27/2025 3:04 AM EST FERRITIN, SERUM Routine 06/27/2025 3:04 AM EST POCT GLUCOSE [...] / INR Routine 06/26/2025 2:25 AM EST PHOSPHORUS, PLASMA Routine 06/26/2025 2: 25 AM EST MAGNESIUM, PLASMA Routine 06/26/2025 2:2 5 AM EST COMPREHENSIVE METABOLIC PANEL, PLASMA Routine 06/26/2025 2:25 AM EST CBC WITH AUTO DIFFERENTIAL Routine 06/26/2025 2:25 AM EST UREA NITROGEN, RANDOM URINE Routine 06/26/2025 12:29 AM EST CREATININE, RANDOM URINE Routine 06/26/2025 12:29 AM EST CHLORIDE, RANDOM URINE Routine 06/26/2025 12:29 AM EST POTASSIUM, URINE, RANDOM Routine 06/26/2025 12:29 AM EST SODIUM, URINE, RANDOM Routine 06/26/2025 12:29 AM EST URINE CONTRERAS PANEL STAT 06/25/2025 7:27 PM EST URINALYSIS WITH REFLEX MICROSCOPIC STAT 06/25/2025 7:27 PM EST URINALYSIS WITH REFLEX MICROSCOPIC AND CULTURE STAT 06/25/2025 7:27 PM EST TROPONIN T, HIGH SENSITIVITY, 2 HOUR, PLASMA Timed 06/25/2025 7:26 PM EST BLOOD CULTURE (AEROBIC/ANAEROBIC SET) STAT 06/25/2025 6:40 PM EST XR CHEST 1 VIEW STAT 06/25/2025 6:33 PM EST BLOOD CULTURE (AEROBIC/ANAEROBIC SET) STAT 06/25/2025 6:01 PM EST ECG ADULT STAT 06/25/2025 5:04 PM EST SARS COV2 COVID 19/INFLUENZA A, B STAT 06/25/2025 4:58 PM EST BLOOD GAS PANEL, VENOUS STAT 06/25/2025 4:57 PM EST PROTHROMBIN TIME(PT) / INR STAT 06/25/2025 4:57 PM EST TROPONIN T, HIGH SENSITIVITY, 0 HOUR, PLASMA, REFLEX TO 2 HOUR STAT 06/25/2025 4:57 PM EST N-TERMINAL PROBNP, PLASMA STAT 06/25/2025 4:57 PM EST MAGNESIUM, PLASMA STAT 06/25/2025 4:5 7 PM EST COMPREHENSIVE METABOLIC PANEL, PLASMA STAT 06/25/2025 4:57 PM EST CBC WITH AUTO DIFFERENTIAL STAT 06/25/2025 4:57 PM EST COMPREHENSIVE METABOLIC PANEL, PLASMA Routine 06/21/2025 CBC W/O DIFFERENTIAL Routine 06/21/2025 PROTHROMBIN TIME(PT) / INR Routine 06/21/2025 MAMMOGRAPHY BREAST SCREENING TOMOSYNTHESIS BILATERAL Routine 06/13/2025 12:12 PM EST Encounter for screening mammogram for malignant neoplasm of breast POCT GLUCOSE METER UNSOLICITED RESULTS Routine 05/31/2025 11:31 AM EST POCT GLUCOSE METER UNSOLICITED RESULTS Routine 05/31/2025 7:46 AM EST MAGNESIUM, PLASMA Add-On 05/31/2025 3:1 6 AM EST PHOSPHORUS, PLASMA Add-On 05/31/2025 3: 16 AM EST PROTHROMBIN TIME(PT) / INR Routine 05/31/2025 3:16 AM EST HEPATIC FUNCTION PANEL Routine 05/31/2025 3:16 AM EST BASIC METABOLIC PANEL, PLASMA [...] UNSOLICITED RESULTS Routine 05/30/2025 6:01 AM EST BASIC METABOLIC PANEL, PLASMA Routine 05/30/2025 3:58 AM EST CBC W/O DIFFERENTIAL Routine 05/30/2025 3:58 AM EST MAGNESIUM, PLASMA Routine 05/30/2025 3:5 8 AM EST PHOSPHORUS, PLASMA Routine 05/30/2025 3: 58 AM EST PROTHROMBIN TIME(PT) / INR Routine 05/30/2025 3:58 AM EST HEPATIC FUNCTION PANEL Routine 05/30/2025 3:58 AM EST NON-INVASIVE VENTILATION [...] / INR Routine 05/29/2025 3:59 AM EST HEPATIC FUNCTION PANEL Routine 05/29/2025 3:59 AM EST BASIC METABOLIC PANEL, PLASMA Routine 05/29/2025 3:59 AM EST CBC W/O DIFFERENTIAL Routine 05/29/2025 3:59 AM EST POCT GLUCOSE [...] UNSOLICITED RESULTS Routine 05/28/2025 7:36 AM EST BASIC METABOLIC PANEL, PLASMA Routine 05/28/2025 3:52 AM EST CBC W/O DIFFERENTIAL Routine 05/28/2025 3:52 AM EST PROTHROMBIN TIME(PT) / INR Routine 05/28/2025 3:52 AM EST HEPATIC FUNCTION PANEL Routine 05/28/2025 3:52 AM EST POCT GLUCOSE [...] / INR Routine 05/27/2025 3:32 AM EST PHOSPHORUS, PLASMA Routine 05/27/2025 3: 32 AM EST MAGNESIUM, PLASMA Routine 05/27/2025 3:3 2 AM EST BASIC METABOLIC PANEL, PLASMA Routine 05/27/2025 3:32 AM EST CBC W/O DIFFERENTIAL Routine 05/27/2025 3:32 AM EST HEPATIC FUNCTION PANEL Routine 05/27/2025 3:32 AM EST POCT GLUCOSE METER UNSOLICITED RESULTS Routine 05/26/2025 8:03 PM EST NON-INVASIVE VENTILATION Routine 05/26/2025 8:00 PM EST POCT GLUCOSE METER UNSOLICITED RESULTS Routine 05/26/2025 4:36 PM EST OSMOLALITY, URINE Routine 05/26/2025 2:5 3 PM EST CREATININE, RANDOM URINE Routine 05/26/2025 2:53 PM EST SODIUM, URINE, RANDOM Routine 05/26/2025 2:53 PM EST POCT GLUCOSE METER UNSOLICITED RESULTS Routine 05/26/2025 11:53 AM EST POCT GLUCOSE METER UNSOLICITED RESULTS Routine 05/26/2025 7:34 AM EST DIRECT BILIRUBIN, PLASMA Routine 05/26/2025 5:40 AM EST PROTHROMBIN TIME(PT) / INR Routine 05/26/2025 5:40 AM EST COMPREHENSIVE METABOLIC PANEL, PLASMA Routine 05/26/2025 5:40 AM EST CBC W/O DIFFERENTIAL Routine 05/26/2025 5:40 AM EST COPPER, SERUM OR PLASMA (SO) Routine 05/26/2025 5:40 AM EST NON-INVASIVE VENTILATION Routine 05/25/2025 10:19 PM EST NON-INVASIVE VENTILATION Routine 05/25/2025 10:19 PM EST NON-INVASIVE VENTILATION Routine 05/25/2025 10:19 PM EST POCT GLUCOSE METER UNSOLICITED RESULTS Routine 05/25/2025 9:15 PM EST COMPREHENSIVE GI PANEL BY PCR Routine 05/25/2025 4:57 PM EST MICROBIOLOGY FREQUENCY OVERRIDE Routine 05/25/2025 4:57 PM EST POCT GLUCOSE [...] UNSOLICITED RESULTS Routine 05/25/2025 7:29 AM EST HEPATIC FUNCTION PANEL Routine 05/25/2025 2:38 AM EST PROTHROMBIN TIME(PT) / INR Routine 05/25/2025 2:38 AM EST MAGNESIUM, PLASMA Routine 05/25/2025 2:3 8 AM EST PHOSPHORUS, PLASMA Routine 05/25/2025 2: 38 AM EST BASIC METABOLIC PANEL, PLASMA Routine 05/25/2025 2:38 AM EST CBC W/O DIFFERENTIAL Routine 05/25/2025 2:38 AM EST NON-INVASIVE VENTILATION [...] UNSOLICITED RESULTS Routine 05/24/2025 10:32 AM EST OPIATES, LCMSMS, URINE STAT 05/24/2025 8:00 AM EST OSMOLALITY, URINE Routine 05/24/2025 8:0 0 AM EST URINE CONTRERAS PANEL STAT 05/24/2025 8:00 AM EST URINALYSIS WITH REFLEX MICROSCOPIC STAT 05/24/2025 8:00 AM EST URINALYSIS WITH REFLEX MICROSCOPIC AND CULTURE STAT 05/24/2025 8:00 AM EST DRUG ABUSE SCREEN, URINE STAT 05/24/2025 8:00 AM EST POCT GLUCOSE METER UNSOLICITED RESULTS Routine 05/24/2025 7:45 AM EST VITAMIN B12, SERUM Routine 05/24/2025 6: 59 AM EST FOLATE, SERUM Routine 05/24/2025 6:59 AM EST AMMONIA, PLASMA Routine 05/24/2025 6:59 AM EST LACTATE, VENOUS Routine 05/24/2025 6:59 AM EST POCT GLUCOSE METER UNSOLICITED RESULTS Routine 05/24/2025 6:15 AM EST VITAMIN B12, SERUM STAT 05/24/2025 4: 23 AM EST FOLATE, SERUM STAT 05/24/2025 4:23 AM EST BLOOD CULTURE (AEROBIC/ANAEROBIC SET) STAT 05/24/2025 4:05 AM EST BLOOD CULTURE (AEROBIC/ANAEROBIC SET) STAT 05/24/2025 4:05 AM EST POCT GLUCOSE METER UNSOLICITED RESULTS Routine 05/24/2025 3:52 AM EST DIRECT BILIRUBIN, PLASMA Add-On 05/24/2025 3:39 AM EST OSMOLALITY, SERUM Add-On 05/24/2025 3:3 9 AM EST C-REACTIVE PROTEIN, PLASMA STAT 05/24/2025 3:39 AM EST FREE T4, PLASMA STAT 05/24/2025 3:39 AM EST TSH STAT 05/24/2025 3:39 AM EST BLOOD GAS PANEL, VENOUS STAT 05/24/2025 3:39 AM EST LIPASE, PLASMA STAT 05/24/2025 3:39 AM EST PHOSPHORUS, PLASMA STAT 05/24/2025 3: 39 AM EST COMPREHENSIVE METABOLIC PANEL, PLASMA STAT 05/24/2025 3:39 AM EST MAGNESIUM, PLASMA STAT 05/24/2025 3:3 9 AM EST APTT STAT 05/24/2025 3:39 AM EST PROTHROMBIN TIME(PT) / INR STAT 05/24/2025 3:39 AM EST CBC WITH AUTO DIFFERENTIAL STAT 05/24/2025 3:39 AM EST ECG ADULT STAT 05/24/2025 3:33 AM EST XR OUTSIDE IMAGES 05/23/2025 11:[address] MSK OUTSIDE IMAGES 05/23/2025 11:53 PM EST XR CERVICAL SPINE COMPLETE 4 TO 5 [...] liver disease (CMS/HCC) ALPHA 1 ANTITRYPSIN PHENOTYPE(INCLUDES [id number])S O (SO) Routine 05/18/2025 8:47 AM EST End-stage [...] 8:47 AM EST End-stage liver disease (CMS/HCC) HC HEP B CORE AB TEST, TOTAL - HEPATITIS B CORE ANTIBODY, TOTAL Routine 05/18/2025 8:47 AM EST End-stage liver [...] 04/11/2025 PROTHROMBIN TIME(PT) / INR Routine 04/11/2025 HEPATITIS C ANTIBODY W/REFLEX TO HCV QUANT PCR Routine 04/03/2025 6:38 AM EDT End-stage liver disease (CMS/HCC) COLONOSCOPY 06/18/2020 from Last 3 Months or Most Recently Relevant to Health Maintenance Results * (ABNORMAL) POCT glucose meter (07/02/2025 12:13 PM EST) Only the most recent of64 resultswithin the time period is included. POCT Glucose 126(H) 74 - 99 mg/dL 07/02/2025 12:15 PM EST [facility] Comment:Accuracy of a glucos e result [...] for testing. Comment 07/02/2025 12:15 PM EST [facility] Watch Case Polisher ID [employer] 07/02/20 25 12:15 PM EST [facility] Device ID [id number] 07/02/2025 12:15 PM EST [facility] Specimen Type POC Capillary 07/02/2025 12:15 PM EST [facility] Blood Capillary blood specimen / Unknown 07/02/2025 12:13 PM EST 07/02/2025 12:15 PM EST Alison Burns MD LAB POINT OF CARE TE ST DOCKED DEVICE UNSOLICITED RESULTS Final Result Performing Organization Address City/[facility] Co de Phone Number [facility] [address] [place] [address] * (ABNORMAL) Prothrombin Time/INR (07/02/2025 5:27 AM EST) Only the most recent of19 resultswithin the time period is included. Prothrombin Time 21.6(H) 12.0 - 14.3 sec 07/02/2025 5:47 AM EST [facility] INR 1.8(H) 0.9 - 1.1 07/02/2025 5:47 AM EST [facility] Blood Venous blood specimen / Unknown Venipuncture / Unknown 07/02/2025 5:27 AM EST 07/02/2025 5:31 AM EST Narrative [facility] - 07/02/2025 5:47 AM EST OPTIMAL INR RANGES FOR PATIENT ON ORAL ANTICOAGULANT THERAPY Prevention of venous thromboembolism INR 2.0 to 3.0 In patients with heart disease: Atrial fibrillation INR 2.0 to 3.0 Valvular heart disease INR 2.0 to 3.0 Tissue heart valves INR 2.0 to 3.0 Mechanical prosthetic valves INR 2.5 to 3.5 Prevention of recurrent TN INR 2.5 to 3.5 Alison Burns MD LAB BLOOD ORDERABLES Final Re sult Performing Organization Address City/[facility] Co de Phone Number [facility] [address] [place] [address] * (ABNORMAL) CBC W/O Differential (07/02/2025 5:27 AM EST) Only the most recent of16 resultswithin the time period is included. WBC Count 3.08(L) 3.70 - 10.30 10*3/uL LAB HEMATOLOGY METHOD 07/02/2025 5:35 AM EST [facility] RBC Count 2.61(L) 3.90 - 5.20 10*6/uL LAB HEMATOLOGY METHOD 07/02/2025 5:35 AM EST [facility] HGB 9.3(L) 11.2 - 15.7 g/dL LAB HEMATOLOGY METHOD 07/02/2025 5:35 AM EST [facility] HCT 27.2(L) 34.0 - 45.0 % LAB HEMATOLOGY METHOD 07/02/2025 5:35 AM EST [facility] Platelet Count 36(L) 155 - 369 10*3/uL LAB HEMATOLOGY METHOD 07/02/2025 5:35 AM EST [facility] MCV 104(H) 79 - 98 fL LAB HEMATOLOGY METHOD 07/02/2025 5:35 AM EST [facility] MCH 35.6(H) 26.0 - 32.0 pg LAB HEMATOLOGY METHOD 07/02/2025 5:35 AM EST [facility] MCHC 34.2 30.7 - 35.5 g/dL LAB HEMATOLOGY METHOD 07/02/2025 5:35 AM EST [facility] RDW 13.8 11.5 - 14.5 % LAB HEMATOLOGY METHOD 07/02/2025 5:35 AM EST [facility] MPV 9.9 8.8 - 12.5 fL LAB HEMATOLOGY METHOD 07/02/2025 5:35 AM EST [facility] nRBC 0.0 <=0.0 per 100 WBCs LAB HEMATOLOGY METHOD 07/02/2025 5:35 AM EST [facility] Blood Venous blood specimen / Unknown Venipuncture / Unknown 07/02/2025 5:27 AM EST 07/02/2025 5:31 AM EST us Alison Burns MD LAB BLOOD ORDERABLES Final Re sult Performing Organization Address City/[facility] Co de Phone Number [facility] [address] [place] [address] * Magnesium, Plasma (07/02/2025 5:27 AM EST) Only the most recent of13 resultswithin the time period is included. Magnesium, Plasma 2.1 1.9 - 2.4 mg/dL 07/02/2025 5:52 AM EST [facility] Blood Venous blood specimen / Unknown Venipuncture / Unknown 07/02/2025 5:27 AM EST 07/02/2025 5:31 AM EST us Alison Burns MD LAB BLOOD ORDERABLES Final Re sult Performing Organization Address City/[facility]/ZIP Co de Phone Number [facility] [address] [place] [address] * (ABNORMAL) Comprehensive Metabolic Panel, Plasma (07/02/2025 5:27 AM EST) Only the most recent of16 resultswithin the time period is included. Glucose, Plasma 110(H) 74 - 99 mg/dL 07/02/2025 5:52 AM EST [facility] BUN, Plasma 16 7 - 21 mg/dL 07/02/2025 5:52 AM EST [facility] Creatinine, Plasma 1.09 0.60 - 1.10 mg/dL 07/02/2025 5:52 AM EST [facility] BUN/Creatinine Ratio 15 07/02/2025 5:52 AM EST [facility] Sodium, Plasma 134(L) 136 - 145 mmol/L 07/02/2025 5:52 AM EST [facility] Potassium, Plasma 3.9 3.6 - 4.9 mmol/L 07/02/2025 5:52 AM EST [facility] Chloride, Plasma 100 97 - 107 mmol/L 07/02/2025 5:52 AM EST [facility] CO2, Plasma 26 22 - 29 mmol/L 07/02/2025 5:52 AM EST [facility] Anion Gap 8 6 - 16 mmol/L 07/02/2025 5:52 AM EST [facility] Total Calcium, Plasma 8.4(L) 8.9 - 10.2 mg/dL 07/02/2025 5:52 AM EST [facility] Total Protein 5.3(L) 6.3 - 7.9 g/dL 07/02/2025 5:52 AM EST [facility] Albumin, Plasma 2.6(L) 3.5 - 5.2 g/dL 07/02/2025 5:52 AM EST [facility] AST, Plasma 60(H) 10 - 35 U/L 07/02/2025 5:52 AM EST [facility] ALT, Plasma 31 10 - 35 U/L 07/02/2025 5:52 AM EST [facility] Alkaline Phosphatase, Plasma 145(H) 35 - 104 U/L 07/02/2025 5:52 AM [facility] Total Bilirubin, Plasma 2.0(H) 0.2 - 1.1 mg/dL 07/02/2025 5:52 AM EST [facility] eGFRcr 60.1 mL/min/1.7 3m*2 07/02/2025 5:52 AM EST [facility] Comment:Reported eGFRcr in m L/min/1.73m2 is based the CKD-EPI 2020 equation that does not use a race coefficient. Blood Venous blood specimen / Unknown Venipuncture / Unknown 07/02/2025 5:27 AM EST 07/02/2025 5:31 AM EST us Alison Burns MD LAB BLOOD ORDERABLES Final Re sult [facility] [address] [place] [address] * MR Abdomen w and wo IV [...] using the following sequences: coronal single shot [id number] fast spin echo, axial T2 weighted sequences [...] Ayush Skinner MD on 06/29/2025 3:17 PM Jonathan Drummond APRN, DNP IMG MRI PROCEDUR ES Final Result * (ABNORMAL) POCT arterial blood gas gem (06/29/2025 10:39 AM EST) Only the most recent of3 resultswithin the time period is included. pH, Arterial 7.48(H) 7.35 - 7.45 06/29/2025 10:41 AM EST [facility] pCO2, Arterial 36 35 - 48 mm Hg 06/29/2025 10:41 AM EST [facility] pO2, Arterial 127(H) 83 - 108 mm Hg 06/29/2025 10:41 AM EST [facility] SO2, Arterial 99(H) 94 - 98 % 06/29/2025 10:41 AM EST [facility] FIO2 21.0 % 06/29/2025 10:41 AM EST [facility] Base Excess, Arterial 3.2(H) -2 - 3 mmol/L 06/29/2025 10:41 AM EST [facility] HCO3, Arterial 26.8(H) 22 - 26 mmol/L 06/29/2025 10:41 AM EST [facility] Total Hemoglobin, Arterial, Whole Blood 9.4(L) 11.2 - 15.7 g/dL 06/29/2025 10:41 AM EST [facility] Hematocrit, Arterial 28.0(L) 34.0 - 45.0 % 06/29/2025 10:41 AM EST [facility] Sodium, Arterial 124(L) 136 - 145 mmol/L 06/29/2025 10:41 AM EST [facility] Potassium, Arterial 4.0 3.6 - 4.9 mmol/L 06/29/2025 10:41 AM EST [facility] Chloride, Whole Blood 99 97 - 107 mmol/L 06/29/2025 10:41 AM EST [facility] Glucose, Arterial 207(H) 74 - 99 mg/dL 06/29/2025 10:41 AM EST [facility] Ionized Calcium, Arterial 4.5(L) 4.6 - 5.1 mg/dL 06/29/2025 10:41 AM EST [facility] Lactate, Arterial 2.1(H) 0.5 - 1.6 mmol/L 06/29/2025 10:41 AM EST [facility] Body Temperature 37.0 Celsius 06/29/2025 10:41 AM [facility] pH, Temp Corrected, Arterial 7.48(H) 7.35 - 7.45 06/29/2025 10:41 AM EST [facility] pCO2, Temp Corrected, Arterial 36 35 - 48 mm Hg 06/29/2025 10:41 AM EST [facility] pO2, Temp Corrected, Arterial 127(H) 83 - 108 mm Hg 06/29/2025 10:41 AM EST [facility] Watch Case Polisher ID Hector Melton 06/29/2025 10:41 AM EST [facility] Blood, Arterial Whole blood specimen / Unknown 06/29/2025 10:39 AM EST 06/29/2025 10:41 AM EST us Alison Burns MD LAB POINT OF CARE TE ST DOCKED DEVICE UNSOLICITED RESULTS Final Result Performing Organization Address City/State/[facility] Co de Phone Number [facility] [address] [place] [id number] * Lactate, venous (06/27/2025 9:32 PM EST) Only the most recent of5 resultswithin the time period is included. Lactate, Venous, Whole Blood 2.2 0.5 - 2.2 mmol/L LAB HEMATOLOGY METHOD 06/27/2025 9:42 PM EST [facility] Blood Venous blood specimen / Unknown Venipuncture / Unknown 06/27/2025 9:32 PM EST 06/27/2025 9:40 PM EST us Sandi Judd MD LAB BLOOD ORDERABLES Final Re sult [facility] [address] [place] [id number] * CT Abdomen Pelvis wo IV Contrast [...] IMG CT PROCEDURES Final Resul t * US Abdomen Doppler Limited (06/27/2025 4:26 PM EST) Only the most recent of2 resultswithin the time period is included. Anatomical Region Laterality Modality Abdomen Ultrasound Impressions [...] on 06/27/2025 5:44 PM Alison Burns MD IM US PROCEDURES Final Resul t * (ABNORMAL) N-Terminal Probnp (06/27/2025 8:51 AM EST) Only the most recent of2 resultswithin the time period is included. N-Terminal, PROBNP, Plasma 2,231(H) 0 - 899 pg/mL 06/27/2025 1:30 PM EST [facility] Blood Venous blood specimen / Unknown Venipuncture / Unknown 06/27/2025 8:51 AM EST 06/27/2025 9:07 AM EST Alison Burns MD LAB BLOOD ORDERABLES Final Re sult [facility] [address] [place] [id number] * (ABNORMAL) Ferritin, Serum (06/27/2025 3:04 AM EST) Only the most recent of2 resultswithin the time period is included. Ferritin, Serum 774(H) 13 - 150 ng/mL 06/27/2025 8:46 AM EST [facility] Blood Venous blood specimen / Unknown Venipuncture / Unknown 06/27/2025 3:04 AM EST 06/27/2025 4:00 AM EST Alison Burns MD LAB BLOOD ORDERABLES Final Re sult Performing Organization Address City/[facility]/ZIP Co de Phone Number [facility] [address] [place] [address] * (ABNORMAL) Iron & Total Iron Binding Capacity, Plasma (Includes Transferrin) (06/26/2025 2:25 AM EST) Only the most recent of2 resultswithin the time period is included. Iron, Plasma 81 30 - 160 ug/dL 06/26/2025 6:59 PM EST [facility] Transferrin, Plasma 114(L) 200 - 360 mg/dL 06/26/2025 6:59 PM EST [facility] Total Iron Binding Capacity, Plasma 143(L) 240 - 450 ug/mL 06/26/2025 6:59 PM EST [facility] Transferrin Saturation 57(H) 14 - 50 % 06/26/2025 6:59 PM EST [facility] Blood Venous blood specimen / Unknown Venipuncture / Unknown 06/26/2025 2:25 AM EST 06/26/2025 2:51 AM EST us Alison Burns MD LAB BLOOD ORDERABLES Final Re sult Performing Organization Address [facility] Co de Phone Number [facility] [address] [place] [address] * (ABNORMAL) APTT (06/26/2025 2:25 AM EST) Only the most recent of2 resultswithin the time period is included. aPTT 41(H) 25 - 35 sec 06/26/2025 3:05 AM EST [facility] Blood Venous blood specimen / Unknown Venipuncture / Unknown 06/26/2025 2:25 AM EST 06/26/2025 2:53 AM EST us Grady Briones DATA WAREHOUSE CONSULTANT, DNP LAB BLOOD ORDERABLES Fin al Result Performing Organization Address City/[facility]/ZIP Co de Phone Number [facility] [address] [place] [address] * (ABNORMAL) CBC and Differential (06/26/2025 2:25 AM EST) Only the most recent of4 resultswithin the time period is included. WBC Count 3.88 3.70 - 10.30 10*3/uL LAB HEMATOLOGY METHOD 06/26/2025 2:55 AM EST [facility] RBC Count 2.94(L) 3.90 - 5.20 10*6/uL LAB HEMATOLOGY METHOD 06/26/2025 2:55 AM EST [facility] HGB 10.5(L) 11.2 - 15.7 g/dL LAB HEMATOLOGY METHOD 06/26/2025 2:55 AM EST [facility] HCT 30.6(L) 34.0 - 45.0 % LAB HEMATOLOGY METHOD 06/26/2025 2:55 AM EST [facility] Platelet Count 41(L) 155 - 369 10*3/uL LAB HEMATOLOGY METHOD 06/26/2025 2:55 AM EST [facility] MCV 104(H) 79 - 98 fL LAB HEMATOLOGY METHOD 06/26/2025 2:55 AM EST [facility] MCH 35.7(H) 26.0 - 32.0 pg LAB HEMATOLOGY METHOD 06/26/2025 2:55 AM EST [facility] MCHC 34.3 30.7 - 35.5 g/dL LAB HEMATOLOGY METHOD 06/26/2025 2:55 AM EST [facility] RDW 13.7 11.5 - 14.5 % LAB HEMATOLOGY METHOD 06/26/2025 2:55 AM EST [facility] MPV 10.6 8.8 - 12.5 fL LAB HEMATOLOGY METHOD 06/26/2025 2:55 AM EST [facility] nRBC 0.0 <=0.0 per 100 WBCs LAB HEMATOLOGY METHOD 06/26/2025 2:55 AM EST [facility] Differential Type Automated LAB HEMATOLOGY METHOD 06/26/2025 2:55 AM EST [facility] Neutrophils % 61 % LAB HEMATOLOGY METHOD 06/26/2025 2:55 AM EST [facility] Lymphocytes % 24 % LAB HEMATOLOGY METHOD 06/26/2025 2:55 AM EST [facility] Monocytes % 10 % LAB HEMATOLOGY METHOD 06/26/2025 2:55 AM EST [facility] Eosinophils % 3 % LAB HEMATOLOGY METHOD 06/26/2025 2:55 AM EST [facility] Basophils % 1 % LAB HEMATOLOGY METHOD 06/26/2025 2:55 AM EST [facility] Immature Granulocytes % 1 % LAB HEMATOLOGY METHOD 06/26/2025 2:55 AM EST [facility] Neutrophils Absolute 2.43 1.60 - 6.10 10*3/uL LAB HEMATOLOGY METHOD 06/26/2025 2:55 AM EST [facility] Lymphocytes Absolute 0.93(L) 1.20 - 3.90 10*3/uL LAB HEMATOLOGY METHOD 06/26/2025 2:55 AM EST [facility] Monocytes Absolute 0.38 0.30 - 0.90 10*3/uL LAB HEMATOLOGY METHOD 06/26/2025 2:55 AM EST [facility] Eosinophils Absolute 0.10 0.00 - 0.50 10*3/uL LAB HEMATOLOGY METHOD 06/26/2025 2:55 AM EST [facility] Basophils Absolute 0.02 0.00 - 0.10 10*3/uL LAB HEMATOLOGY METHOD 06/26/2025 2:55 AM EST [facility] Immature Granulocytes Absolute 0.02 0.00 - 0.06 10*3/uL LAB HEMATOLOGY METHOD 06/26/2025 2:55 AM EST [facility] Blood Venous blood specimen / Unknown Venipuncture / Unknown 06/26/2025 2:25 AM EST 06/26/2025 2:53 AM EST Narrative [facility] - 06/26/2025 2:55 AM EST Therapeutic decision making should be based on absolute values, rather than percentages. us Grady Briones APRN, FELISA LAB BLOOD ORDERABLES Fin al Result Performing Organization Address City/State/[facility] Co de Phone Number [facility] [address] [place] [phone] * Phosphorus (06/26/2025 2:25 AM EST) Only the most recent of6 resultswithin the time period is included. Phosphorus, Plasma 3.0 2.5 - 4.5 mg/dL 06/26/2025 3:15 AM EST [facility] Blood Venous blood specimen / Unknown Venipuncture / Unknown 06/26/2025 2:25 AM EST 06/26/2025 2:51 AM EST us Grady Briones APRN, DNP LAB BLOOD ORDERABLES Fin al Result [facility] [address] [place] [address] * Urea Nitrogen, Random Urine (06/26/2025 12:29 AM EST) Urea Nitrogen, Urine 191 mg/dL 06/26/2025 3:45 AM EST [facility] Urine Urine specimen obtained by clean catch procedure / Unknown Non-blood Collection / Unknown 06/26/2025 12:29 AM EST 06/26/2025 12:32 AM EST k A [employer]AREHOUSE CONSULTANT, DNP LAB URINE ORDERABLES Fin al Result Performing Organization Address [facility] [place] [address] * Sodium, Random, Urine (06/26/2025 12:29 AM EST) Only the most recent of2 resultswithin the time period is included. Sodium, Urine 68 mmol/L 06/26/2025 12:55 AM EST [facility] Urine Urine specimen obtained by clean catch procedure / Unknown Non-blood Collection / Unknown 06/26/2025 12:29 AM EST 06/26/2025 12:32 AM EST Grady A [employer] DATA WAREHOUSE CONSULTANT, DNP LAB URINE ORDERABLES Fin al Result Performing Organization Address [facility] de Phone Number [facility] [address] [place] [address] * Potassium, Random, Urine (06/26/2025 12:29 AM EST) Potassium, Urine 16 mmol/L 06/26/2025 12:55 AM EST [facility] Urine Urine specimen obtained by clean catch procedure / Unknown Non-blood Collection / Unknown 06/26/2025 12:29 AM EST 06/26/2025 12:32 AM EST k A [employer] DATA WAREHOUSE CONSULTANT, DNP LAB URINE ORDERABLES Fin al Result Performing Organization Address [facility] de Phone Number [facility] [address] [place] [address] * Creatinine, Random, Urine (06/26/2025 12:29 AM EST) Only the most recent of2 resultswithin the time period is included. Creatinine, Urine 25 mg/dL 06/26/2025 12:55 AM EST [facility] Urine Urine specimen obtained by clean catch procedure / Unknown Non-blood Collection / Unknown 06/26/2025 12:29 AM EST 06/26/2025 12:32 AM EST us Grady Briones APRN, DNP LAB URINE ORDERABLES Fin al Result Performing Organization Address City/[facility]/ZIP Co de Phone Number [facility] [address] [place] [address] * Chloride, Random Urine (06/26/2025 12:29 AM EST) Chloride, Urine 60 mmol/L 3:45 AM EST [facility] Urine Urine specimen obtained by clean catch procedure / Unknown Non-blood Collection / Unknown 06/26/2025 12:29 AM EST 06/26/2025 12:32 AM EST Grady Briones APRN, DNP LAB URINE ORDERABLES Fin al Result Performing Organization Address City/[facility]/ZIP Co de Phone Number [facility] [address] [place] [address] * Urine Contreras Panel (06/25/2025 7:27 PM EST) Only the most recent of2 resultswithin the time period is included. Extra Reflex urine culture not indicated 06/26/2025 4:03 AM EST [facility] Comment: Previously prelim verified as Specimen [...] PM EST 06/25/2025 7:43 PM EST us [facility] URINE ORDERABLES Final Res ult [facility] [address] [place] [id number] * (ABNORMAL) Urinalysis with reflex microscopic (Culture NOT Included) (06/25/2025 7:27 PM EST) Only the most recent of2 resultswithin the time period is included. Color, Urine Yellow LAB URINALYSIS - AUTOMATED METHOD 06/25/2025 7:46 PM EST [facility] Clarity, Urine Clear LAB URINALYSIS - AUTOMATED METHOD 06/25/2025 7:46 PM EST [facility] Spec [place], Urine 1.010 1.005 - 1.030 LAB URINALYSIS - AUTOMATED METHOD 06/25/2025 7:46 PM EST [facility] pH, Urine 6.5 5.0 - 8.0 LAB URINALYSIS - AUTOMATED METHOD 06/25/2025 7:46 PM EST [facility] Protein, Urine Negative Negative mg/dL LAB URINALYSIS - AUTOMATED METHOD 06/25/2025 7:46 PM EST [facility] Glucose, Urine 500(A) Negative mg/dL LAB URINALYSIS - AUTOMATED METHOD 06/25/2025 7:46 PM EST [facility] Ketones, Urine Negative Negative mg/dL LAB URINALYSIS - AUTOMATED METHOD 06/25/2025 7:46 PM EST [facility] Blood, Urine Negative Negative LAB URINALYSIS - AUTOMATED METHOD 06/25/2025 7:46 PM EST [facility] Bilirubin, Urine Negative Negative LAB URINALYSIS - AUTOMATED METHOD 06/25/2025 7:46 PM EST [facility] Urobilinogen, Urine 0.2 0.2 to 1.0 mg/dL LAB URINALYSIS - AUTOMATED METHOD 06/25/2025 7:46 PM EST [facility] Leukocytes, Urine Negative Negative LAB URINALYSIS - AUTOMATED METHOD 06/25/2025 7:46 PM EST [facility] Nitrite, Urine Negative Negative LAB URINALYSIS - AUTOMATED METHOD 06/25/2025 7:46 PM EST [facility] Urine Urine specimen obtained by clean catch procedure / Unknown Non-blood Collection / Unknown 06/25/2025 7:27 PM EST 06/25/2025 7:43 PM EST [facility] PA LAB URINE ORDERABLES Final Res ult Performing Organization Address City/[facility] Co de Phone Number [facility] [address] [place] [address] * (ABNORMAL) Troponin T, High Sensitivity, 2 Hour, Plasma (06/25/2025 7:26 PM EST) Troponin T, High Sensitivity, 2 Hour 20(H) <14 ng/L 06/25/2025 8:04 PM EST [facility] Troponin Delta 3 <10 ng/L 06/25/2025 8:04 PM EST [facility] Troponin Delta Interpretation Not Significant 06/25/2025 8:04 PM EST [facility] Comment:Not Significant. No acute change in troponin observed between the baseline and 2 hour samples. Blood Venous blood specimen / Unknown Venipuncture / Unknown 06/25/2025 7:26 PM EST 06/25/2025 7:42 PM EST Adis Blackmon DO LAB BLOOD ORDERABLES Final Resu lt Performing Organization Address City/[facility] Co de Phone Number [facility] [address] [place] [address] * Blood Culture (Aerobic/Anaerobet Set) (06/25/2025 6:40 PM EST) Only the most recent of4 resultswithin the time period is included. Culture No growth at day 5 06/30/2025 8:01 PM EST [facility] Blood Structure of left hand / Unknown Venipuncture / Unknown 06/25/2025 6:40 PM EST 06/25/2025 6:49 PM EST Narrative [facility] - 06/30/2025 8:01 PM EST Low blood volume submitted, results may be compromised us [facility] LAB MICROBIOLOGY - GENERAL ORD ERABLES Final Result [facility] [address] [place] [address] * XR Chest 1 View (06/25/2025 6:33 PM EST) Only the most recent of2 resultswithin the time period is included. Anatomical Region Laterality Modality Chest Digital Radiogra [...] Chino MD on 06/25/2025 6:35 PM us [facility] IMG XR PROCEDURES Final Result * SARS-CoV-2 COVID-19/Influenza A,B (06/25/2025 4:58 PM EST) SARS CoV-2/COVID-19 RNA PCR Result Not Detected Not Detected 06/25/2025 5:34 PM EST [facility] Comment:For In Vitro Diagnos tic Use Influenza A Virus PCR Result Not Detected Not Detected 06/25/2025 5:34 PM EST [facility] Comment:For In Vitro Diagnos tic Use Influenza B Virus PCR Result Not Detected Not Detected 06/25/2025 5:34 PM EST [facility] Comment:For In Vitro Diagnos tic Use Swab Nasopharyngeal structure / Unknown Non-blood Collection / Unknown 06/25/2025 4:58 PM EST 06/25/2025 5:11 PM EST Narrative [facility] - 06/25/2025 5:34 PM EST This [...] clinical signs and symptoms consistent with COVID-19. Adis Blackmon DO LAB MICROBIOLOGY - GENERAL ORDE ANGELITO Final Result [facility] [address] [place] [address] * (ABNORMAL) Troponin now and 120 min (06/25/2025 4:57 PM EST) Troponin T, High Sensitivity, 0 Hour 17(H) <14 ng/L 06/25/2025 5:24 PM EST [facility] Blood Venous blood specimen / Unknown Venipuncture / Unknown 06/25/2025 4:57 PM EST 06/25/2025 5:03 PM EST us Adis Valdovinos Blackmon DO LAB BLOOD ORDERABLES Final Resu lt [facility] [address] [place] [address] * (ABNORMAL) Blood gas panel, venous (06/25/2025 4:57 PM EST) Only the most recent of2 resultswithin the time period is included. pH, Venous 7.35 7.32 - 7.43 LAB HEMATOLOGY METHOD 06/25/2025 5:07 PM EST [facility] pCO2, Venous 51 37 - 52 mmHg LAB HEMATOLOGY METHOD 06/25/2025 5:07 PM EST [facility] pO2, Venous 23(L) 25 - 40 mmHg LAB HEMATOLOGY METHOD 06/25/2025 5:07 PM EST [facility] SO2, Measured, Venous 32(L) 65 - 80 % LAB HEMATOLOGY METHOD 06/25/2025 5:07 PM EST [facility] Base Excess, Venous 1.8 -2.0 - 3.0 mmol/L LAB HEMATOLOGY METHOD 06/25/2025 5:07 PM EST [facility] Bicarbonate, Calculated, Venous 28(H) 22 - 26 mmol/L LAB HEMATOLOGY METHOD 06/25/2025 5:07 PM EST [facility] Hematocrit, Whole Blood 32.7(L) 34.0 - 45.0 % LAB HEMATOLOGY METHOD 06/25/2025 5:07 PM EST [facility] Sodium, Whole Blood 136 136 - 145 mmol/L LAB HEMATOLOGY METHOD 06/25/2025 5:07 PM EST [facility] Potassium, Whole Blood 3.4(L) 3.6 - 4.9 mmol/L LAB HEMATOLOGY METHOD 06/25/2025 5:07 PM EST [facility] Chloride, Whole Blood 96(L) 97 - 107 mmol/L LAB HEMATOLOGY METHOD 06/25/2025 5:07 PM EST [facility] Glucose, Whole Blood 135(H) 74 - 99 mg/dL LAB HEMATOLOGY METHOD 06/25/2025 5:07 PM EST [facility] Lactate, Venous, Whole Blood 3.4(H) 0.5 - 2.2 mmol/L LAB HEMATOLOGY METHOD 06/25/2025 5:07 PM EST [facility] Ionized Calcium, Whole Blood 4.8 4.6 - 5.1 mg/dL LAB HEMATOLOGY METHOD 06/25/2025 5:07 PM EST [facility] Blood Venous blood specimen / Unknown Venipuncture / Unknown 06/25/2025 4:57 PM EST 06/25/2025 5:03 PM EST Adis Valdovinos Neymar STOVALL LAB BLOOD ORDERABLES Final Resu lt [facility] [address] [place] [address] * Mammography Breast Screening Tomosynthesis Bilateral (06/13/2025 [...] procedural history include hysterectomy, 2012 (Hysterectomy from [facility]) and breast surgery (Breast Surgery Reduction Procedure Bilateral from [facility]). COMPARISON STUDIES: Compared to: 04/17/2015 MAMMOGRAPHY BREAST SCREENING TOMOSYNTHESIS BILATERAL at [facility] 02/15/2024 MAMMOGRAPHY BREAST SCREENING TOMOSYNTHESIS BILATERAL at [facility] BREAST COMPOSITION: The breasts are almost entirely fatty. FINDINGS: There are no suspicious masses, calcifications, or areas of architectural distortion. Kaela Khan MD IMG BI PROCEDURES Final R esult * (ABNORMAL) Hepatic Function Panel (05/31/2025 3:16 AM EST) Only the most recent of6 resultswithin the time period is included. Direct Bilirubin, Plasma 1.3(H) <=0.3 mg/dL 05/31/2025 4:27 AM EST [facility] Alkaline Phosphatase, Plasma 140(H) 35 - 104 U/L 05/31/2025 4:27 AM EST [facility] Total Bilirubin, Plasma 2.6(H) 0.2 - 1.1 mg/dL 05/31/2025 4:27 AM EST [facility] Albumin, Plasma 2.6(L) 3.5 - 5.2 g/dL 05/31/2025 4:27 AM EST [facility] Total Protein 5.7(L) 6.3 - 7.9 g/dL 05/31/2025 4:27 AM EST [facility] ALT, Plasma 47(H) 10 - 35 U/L 05/31/2025 4:27 AM EST [facility] AST, Plasma 68(H) 10 - 35 U/L 05/31/2025 4:27 AM EST [facility] Blood Venous blood specimen / Unknown Venipuncture / Unknown 05/31/2025 3:16 AM EST 05/31/2025 4:00 AM EST us Alison Burns MD LAB BLOOD ORDERABLES Final Re sult [facility] [address] [place] [id number] * (ABNORMAL) Basic Metabolic Panel, Plasma (05/31/2025 3:16 AM EST) Only the most recent of6 resultswithin the time period is included. Pathologist [facility] Glucose, Plasma 149(H) 74 - 99 mg/dL 05/31/2025 4:27 AM EST [facility] BUN, Plasma 19 7 - 21 mg/dL 05/31/2025 4:27 AM EST [facility] Creatinine, Plasma 1.03 0.60 - 1.10 mg/dL 05/31/2025 4:27 AM EST [facility] BUN/Creatinine Ratio 18 05/31/2025 4:27 AM EST [facility] Sodium, Plasma 131(L) 136 - 145 mmol/L 05/31/2025 4:27 AM EST [facility] Potassium, Plasma 4.2 3.6 - 4.9 mmol/L 05/31/2025 4:27 AM EST [facility] Chloride, Plasma 101 97 - 107 mmol/L 05/31/2025 4:27 AM EST [facility] CO2, Plasma 25 22 - 29 mmol/L 05/31/2025 4:27 AM EST [facility] Anion Gap 5(L) 6 - 16 mmol/L 05/31/2025 4:27 AM EST [facility] Total Calcium, Plasma 8.5(L) 8.9 - 10.2 mg/dL 05/31/2025 4:27 AM EST [facility] eGFRcr 64.3 mL/min/1.7 3m*2 05/31/2025 4:27 AM EST [facility] Comment:Reported eGFRcr in m L/min/1.73m2 is based the CKD-EPI 2020 equation that does not use a race coefficient. Blood Venous blood specimen / Unknown Venipuncture / Unknown 05/31/2025 3:16 AM EST 05/31/2025 4:00 AM EST us Alison Burns MD LAB BLOOD ORDERABLES Final Re sult [facility] [address] [place] [address] * NM MYOCARDIAL SPECT REGADENOSON STRESS (MULTI [...] performed under direct supervision of the reading financial planning adviser. Study Impression There is no significant patient [...] from 05/28/2025. There is no significant difference. Jonathan Drummond APRN, DNP CV STRESS PROCED URES Final Result * Pulmonary function testing (05/29/2025 10:20 AM EST) Anatomical Region Laterality Modality PFT Narrative 05/29/2025 1:33 PM EST Pulmonary Function Testing Report Trudy Peña 54 y.o. underwent pulmonary function testing today at the [facility]. The patient underwent spirometry pre and post bronchodilator administration, lung volumes by body plethysmography, and diffusion capacity testing. All tests were appropriately administered via ATS/ERS criteria. The patient tolerated testing well and put forth a good effort. Spirometry: No obstruction. Lung Volumes: The diffusing capacity for carbon monoxide, corrected for Hgb, is normal. Jonathan Drummond APRN, DNP PFT ORDERABLES Final Result * ABO/Rh Transplant (05/29/2025 3:59 AM EST) ABO/Rh A Positive 05/29/2025 4:19 AM EST [facility] Blood Venous blood specimen / Unknown Venipuncture / Unknown 05/29/2025 3:59 AM EST 05/29/2025 4:19 AM EST Jonathan Drummond APRN, DNP LAB BLOOD BANK T EST ORDERABLES Final Result BLOOD BANK [address] [place] [address], * ECHO, ADULT TRANSTHORACIC COMPLETE (05/28/2025 2:43 [...] 28 mL LORENA ISCV EF(MOD-bp) 60 % LROENA ISCV LVOT diam 25 mm LORENA ISCV [...] Ao Diam 35 mm LORENA ISCV PA WV(ACCEL) 23.4 mmHg LORENA ISCV LV mean PG [...] is no recent study available for direct [id number] comparison. Left Ventricle The left ventricle is [...] is no recent study available for direct [id number] comparison. Wall Scoring Baseline Score Index: N/A Grecia/Mary Jonathan Drummond APRN, FELISA CV ECHO PROCEDUR ES Final Result * Osmolality, urine (05/26/2025 2:53 PM EST) Only the most recent of2 resultswithin the time period is included. Osmolality, Urine 309 50 - 1,200 mOsm/kg 05/26/2025 4:29 PM EST [facility] Urine Urine specimen obtained by clean catch procedure / Unknown Non-blood Collection / Unknown 05/26/2025 2:53 PM EST 05/26/2025 3:10 PM EST Alison Burns MD LAB URINE ORDERABLES Final Re sult [facility] [address] [place] [address] * Copper, Serum or Plasma (05/26/2025 5:40 AM EST) Copper, Serum or Plasma 98.5 80.0 - 155.0 ug/dL 05/28/2025 9:07 PM EST [facility] Blood Venous blood specimen / Unknown Venipuncture / Unknown 05/26/2025 5:40 AM EST 05/26/2025 5:59 AM EST Narrative [facility]) - 05/28/2025 9:07 PM EST INTERPRETIVE INFORMATION: [...] developed and its performance characteristics determined by [facility]. It has not been cleared or approved by the US Food and Drug Administration. This test was performed in a CLIA certified laboratory and is intended for clinical purposes. Performed By: [facility] [address] [place] [address] Simulation Technician: Kiel Mayfield MD, PhD CLIA Number: [id number] Alison Burns MD LAB BLOOD ORDERABLES Final Re sult Performing Organization Address City/[facility] Co de Phone Number [facility]) [address] [place] [address] * (ABNORMAL) Direct Bilirubin, Plasma (05/26/2025 5:40 AM EST) Only the most recent of2 resultswithin the time period is included. Direct Bilirubin, Plasma 1.4(H) <=0.3 mg/dL 05/26/2025 9:19 AM EST [facility] Blood Venous blood specimen / Unknown Venipuncture / Unknown 05/26/2025 5:40 AM EST 05/26/2025 5:59 AM EST Alison Burns MD LAB BLOOD ORDERABLES Final Re sult [facility] [address] [place] [address] * Microbiology Frequency Override (05/25/2025 4:57 PM EST) Pathologist [facility] Microbiology Frequency Override Test Comment comprehensive GI panel 05/30/2025 1:40 PM EST [facility] Stool Anal structure / Unknown Non-blood Collection / Unknown 05/25/2025 4:57 PM EST 05/25/2025 5:03 PM EST Alison Burns MD LAB MICROBIOLOGY - GENERAL OR DERABLES Final Result [facility] [address] [place] [address] * Comprehensive GI Panel by PCR (05/25/2025 4:57 PM EST) Only the most recent of2 resultswithin the time period is included. Pathologist [facility] Campylobacter PCR Result Not Detected Not Detected 05/26/2025 7:04 AM EST [facility] Plesiomonas shigelloides PCR Result Not Detected Not Detected 05/26/2025 7:04 AM EST [facility] Salmonella PCR Result Not Detected Not Detected 05/26/2025 7:04 AM EST [facility] Vibrio species PCR Result Not Detected Not Detected 05/26/2025 7:04 AM EST [facility] Vibrio cholerae PCR Result Not Detected Not Detected 05/26/2025 7:04 AM EST [facility] Yersinia enterocolitica PCR Result Not Detected Not Detected 05/26/2025 7:04 AM EST [facility] Enteroaggregative E. coli (EAEC) PCR Result Not Detected Not Detected 05/26/2025 7:04 AM EST [facility] Enteropathogenic E. coli (EPEC) PCR Result Not Detected Not Detected 05/26/2025 7:04 AM EST [facility] Enterotoxigenic E. coli (ETEC) lt/st PCR Result Not Detected Not Detected 05/26/2025 7:04 AM EST [facility] Shiga-like Toxin-Producing E.coli (STEC) stx1/stx2 PCR Resu Not Detected Not Detected 05/26/2025 7:04 AM [facility] E coli 0157 PCR Result Not Detected Not Detected 05/26/2025 7:04 AM [facility] Shigella/Enteroinvas jessica E. coli (EIEC) PCR Result Not Detected Not Detected 05/26/2025 7:04 AM [facility] Cryptosporidium PCR Result Not Detected Not Detected 05/26/2025 7:04 AM [facility] Cyclospora cayetanensis PCR Result Not Detected Not Detected 05/26/2025 7:04 AM [facility] Entamoeba histolytica PCR Result Not Detected Not Detected 05/26/2025 7:04 AM [facility] Giardia duodenalis (aka Giardia lamblia) PCR Result Not Detected Not Detected 05/26/2025 7:04 AM [facility] Adenovirus F 40/41 PCR Result Not Detected Not Detected 05/26/2025 7:04 AM [facility] Astrovirus PCR Result Not Detected Not Detected 05/26/2025 7:04 AM [facility] Norovirus GI/GII PCR Result Not Detected Not Detected 05/26/2025 7:04 AM [facility] Rotavirus A PCR Result Not Detected Not Detected 05/26/2025 7:04 AM [facility] Sapovirus PCR Result Not Detected Not Detected 05/26/2025 7:04 AM [facility] Stool Rectum structure / Unknown Non-blood Collection / Unknown 05/25/2025 4:57 PM EST 05/25/2025 6:02 PM [facility] [place] [place] [facility] - 05/26/2025 7:04 AM [facility] This specimen was tested for the following [...] MICROBIOLOGY - GENERAL OR DERABLES Final Result [facility] [address] [place] [address] * US Abdomen Focused Region Other (05/25/2025 [...] 05/25/2025 12:08 PM us Alison Burns MD IM US PROCEDURES Final Resul t * Clostridiodes (Clostridium) difficile PCR (05/24/2025 12:52 PM EST) C difficile PCR toxin B gene DNA Result Test not indicated due to the receipt of formed or semi-formed stool specimen. Not Detected 05/25/2025 7:04 AM EST [facility] Stool Rectum structure / Unknown Non-blood Collection / Unknown 05/24/2025 12:52 PM EST 05/24/2025 12:55 PM EST Narrative [facility] - 05/25/2025 7:04 AM EST This test is FDA approved for use with liquid stool specimens. This test is used for clinical purposes. It should not be regarded as investigational or for research. This laboratory is certified under the Clinical Laboratory Improvement Amendments of 1988 (CLIA-88) as qualified to perform high complexity clinical laboratory testing. us Abdoul Rouse MD LAB MICROBIOLOGY - GENERAL ORD ERABLES Final Result [facility] [address] [place] [address] * (ABNORMAL) Opiates Confirm Urine (05/24/2025 8:00 AM EST) Codeine <50 <50 ng/mL 05/27/2025 7:38 PM EST [facility] Codeine Glucuronide <50 <50 ng/mL 05/27/2025 7:38 PM EST [facility] Desmethyl Tramadol <50 <50 ng/mL 05/27/2025 7:38 PM EST [facility] EDDP - Methadone Metabolite <50 <50 ng/mL 05/27/2025 7:38 PM EST [facility] Hydrocodone <50 <50 ng/mL 05/27/2025 7:38 PM EST [facility] Hydromorphone <50 <50 ng/mL 05/27/2025 7:38 PM EST [facility] Hydromorphone Glucuronide <50 <50 ng/mL 05/27/2025 7:38 PM EST [facility] Comment:Metabolite of Hydrom orphone Meperidine <50 <50 ng/mL 05/27/2025 7:38 PM EST [facility] Methadone <50 <50 ng/mL 05/27/2025 7:38 PM EST [facility] 6 Monoacetyl morphine <10 <10 ng/mL 05/27/2025 7:38 PM EST [facility] Morphine 411(H) <50 ng/mL 05/27/2025 7:38 PM EST [facility] Morphine Glucuronide >1,000(H) <50 ng/mL 05/27/2025 7:38 PM EST [facility] Comment:Metabolite of Morphi ne Naloxone <50 <50 ng/mL 05/27/2025 7:38 PM EST [facility] Naloxone Glucuronide <50 <50 ng/mL 05/27/2025 7:38 PM EST [facility] Comment:Metabolite of Naloxo ne Normeperidine <50 <50 ng/mL 05/27/2025 7:38 PM EST [facility] Tramadol <50 <50 ng/mL 05/27/2025 7:38 PM EST [facility] Urine Urine specimen obtained by clean catch procedure / Unknown Non-blood Collection / Unknown 05/24/2025 8:00 AM EST 05/24/2025 8:03 AM EST [facility] - 05/27/2025 7:38 PM EST Drug analysis is confirmed by LC-MS/MS (LC Tandem Mass Spectrometry) on Urine specimens. This test was developed and its performance characteristics determined by [facility]. It has not been cleared or approved by the FDA. The laboratory is regulated under CLIA as qualified to perform high-complexity testing. This test is used for clinical purposes. Testing is performed at the [facility], Special Chemistry Laboratory. us Abdoul Rouse MD LAB URINE ORDERABLES Final Res ult Performing Organization Address City/[facility]/ZIP Co de Phone Number [facility] [address] [place] [address] * Drug abuse screen (05/24/2025 8:00 AM EST) [facility] Amphetamine Screen Urine Negative Cutoff: 500 ng/mL 05/24/2025 8:39 AM EST [facility] Benzodiazepines Screen Urine Negative Cutoff: 200 ng/mL 05/24/2025 8:39 AM EST [facility] Cannabinoid Screen Urine Negative Cutoff: 50 ng/mL 05/24/2025 8:39 AM EST [facility] Cocaine Screen Urine Negative Cutoff: 300 ng/mL 05/24/2025 8:39 AM EST [facility] Barbiturate Screen Urine Negative Cutoff: 200 ng/mL 05/24/2025 8:39 AM EST [facility] Opiate Screen Urine Presumptive positive. Confirmation by LC-MS/MS to follow. Cutoff: 300 ng/mL 05/24/2025 8:39 AM EST [facility] Methadone Screen Urine Negative Cutoff: 300 ng/mL 05/24/2025 8:39 AM EST [facility] Buprenorphine Screen Urine Negative Cutoff: 10 ng/mL 05/24/2025 8:39 AM EST [facility] Fentanyl Screen Urine Negative Cutoff: 1 ng/mL 05/24/2025 8:39 AM EST [facility] Oxycodone Screen Urine Negative Cutoff: 100 ng/mL 05/24/2025 8:39 AM EST [facility] Urine Urine specimen obtained by clean catch procedure / Unknown Non-blood Collection / Unknown 05/24/2025 8:00 AM EST 05/24/2025 8:03 AM EST us Adboul Rouse MD LAB URINE ORDERABLES Final Res ult Performing Organization Address [facility]/ZIP Co de Phone Number [facility] [address] [place] [address] * Folate (05/24/2025 6:59 AM EST) Only the most recent of2 resultswithin the time period is included. Folate, Serum 17.7 >4.6 ng/mL 05/24/2025 11:53 AM EST [facility] Blood Venous blood specimen / Unknown Venipuncture / Unknown 05/24/2025 6:59 AM EST 05/24/2025 7:01 AM EST us Mannie N Madujibeya DATA WAREHOUSE CONSULTANT, DNP LAB BLOOD ORDERAB LES Final Result [facility] [address] [place] [address] * (ABNORMAL) Vitamin B12 (05/24/2025 6:59 AM EST) Only the most recent of2 resultswithin the time period is included. Vitamin B12, Serum 1,723(H) 210 - 1,033 pg/mL 05/24/2025 11:53 AM EST [facility] Blood Venous blood specimen / Unknown Venipuncture / Unknown 05/24/2025 6:59 AM EST 05/24/2025 7:01 AM EST us Mannie N Bestuanna mariebeya DATA WAREHOUSE CONSULTANT, DNP LAB BLOOD ORDERAB LES Final Result [facility] [address] [place] [address] * Ammonia, Plasma (05/24/2025 6:59 AM EST) Ammonia 33 11 - 51 umol/L 05/24/2025 7:40 AM EST [facility] Blood Venous blood specimen / Unknown Venipuncture / Unknown 05/24/2025 6:59 AM EST 05/24/2025 7:01 AM EST us Mannie N Madujibeya DATA WAREHOUSE CONSULTANT, DNP LAB BLOOD ORDERAB LES Final Result [facility] [address] [place] [address] * (ABNORMAL) C-Reactive protein (05/24/2025 3:39 AM EST) CRP, Plasma 26.7(H) <=8.0 mg/L 05/24/2025 4:13 AM EST [facility] Blood Venous blood specimen / Unknown Venipuncture / Unknown 05/24/2025 3:39 AM EST 05/24/2025 3:42 AM EST Narrative [facility] - 05/24/2025 4:13 AM EST This CRP test is appropriate for assessment of infection, systemic inflammation and/or tissue injury. To assess cardiovascular disease risk order high sensitivity CRP (CRPH). us Abdoul Rouse MD LAB BLOOD ORDERABLES Final Res ult Performing Organization Address City/[facility] Co de Phone Number [facility] [address] [place] [address] * Thyroid Stimulating Hormone, Plasma (05/24/2025 3:39 AM EST) Only the most recent of2 resultswithin the time period is included. Thyroid Stimulating Hormone, Plasma 1.31 0.40 - 4.20 uIU/mL 05/24/2025 4:18 AM EST [facility] Blood Venous blood specimen / Unknown Venipuncture / Unknown 05/24/2025 3:39 AM EST 05/24/2025 3:42 AM EST Narrative [facility] - 05/24/2025 4:18 AM EST Trimester Specific Ranges TSH ( IU/mL) 1st Trimester 0.1 - 3.0 2nd Trimester 0.19 - 4.06 3rd Trimester 0.3 - 3.7 us Abdoul Rouse MD LAB BLOOD ORDERABLES Final Res ult Performing Organization Address City/[facility]/ZIP Co de Phone Number [facility] [address] [place] [address] * Free T4, Plasma (05/24/2025 3:39 AM EST) Free T4, Plasma 1.2 0.8 - 1.7 ng/dL 05/24/2025 4:18 AM EST [facility] Blood Venous blood specimen / Unknown Venipuncture / Unknown 05/24/2025 3:39 AM EST 05/24/2025 3:42 AM EST Narrative [facility] - 05/24/2025 4:18 AM EST Free T4 Trimester Specific Ranges 1st Trimester 0.9 - 1.50 ng/dL 2nd Trimester 0.7 - 1.40 ng/dL 3rd Trimester 0.7 - 1.24 ng/dL us Abdoul Rouse MD LAB BLOOD ORDERABLES Final Res ult Performing Organization Address City/[facility]/ZIP Co de Phone Number [facility] [address] [place] [address] * Osmolality (05/24/2025 3:39 AM EST) [facility] Osmolality, Serum 283 275 - 295 mOsm/Kg 05/24/2025 8:17 AM EST [facility] Blood Venous blood specimen / Unknown Venipuncture / Unknown 05/24/2025 3:39 AM EST 05/24/2025 3:42 AM EST Mannie Wiggins APRN, DNP LAB BLOOD ORDERAB LES Final Result Performing Organization Address [facility] Co de Phone Number [facility] [address] [place] [address] * Lipase (05/24/2025 3:39 AM EST) [facility] Lipase, Plasma 29 19 - 63 U/L 05/24/2025 4:13 AM EST [facility] Blood Venous blood specimen / Unknown Venipuncture / Unknown 05/24/2025 3:39 AM EST 05/24/2025 3:42 AM EST us Abdoul Rouse MD LAB BLOOD ORDERABLES Final Res ult Performing Organization Address City/[facility] Co de Phone Number [facility] [address] [place] [address] * EKG now - STAT (adult) (05/24/2025 3:33 AM EST) EKG DIAGNOSIS CLASS Borderline Normal MUSE ECG Ventricular Rate 125 BPM MUSE ECG Atrial Rate 125 BPM MUSE ECG WV Interval 124 ms MUSE ECG QRSD Interval 78 ms MUSE ECG QT Interval 330 ms MUSE ECG QTC Interval 476 ms MUSE ECG P [place] 56 degrees MUSE ECG R [place] 21 degrees MUSE ECG T Wave [place] 60 degrees MUSE ECG Diagnosis Sinus tachycardia MUSE ECG Diagnosis Otherwise normal ECG MUSE ECG Diagnosis MUSE ECG Diagnosis Confirmed by Prince Esteves ([id number]) on 05/24/2025 10:36:59 PM MUSE ECG 05/24/2025 3:33 AM EST 05/24/2025 10:36 PM EST us Abdoul Rouse MD ECG ORDERABLES Final Result MUSE ECG * XR OUTSIDE IMAGES (05/23/2025 11:57 PM EST) Anatomical Region Laterality Modality Radiographic Zayda ging 05/23/2025 11:5 7 PM EST us External Provider IMG XR PROCEDURES Edited Resul t - Final * CT MSK OUTSIDE IMAGES (05/23/2025 11:53 PM EST) Anatomical Region Laterality Modality Computed Tomogra phy 05/23/2025 11:5 3 PM EST us External Provider IMG CT PROCEDURES Edited Resul t - Final * XR Lumbar Spine 4+ Views w [...] and mild C7-T1 disc space narrowing. Moderate C7-T3hjlkg arthropathy. No subluxation between flexion and extensionradiographs. [...] on 05/22/2025 12:08 PM us Sivan Isaac DATA WAREHOUSE CONSULTANT, DNP IMG XR PROCEDURES Jennifer l Result [...] and mild C7-T1 disc space narrowing. Moderate C7-I4fzpgx arthropathy. No subluxation between flexion and extensionradiographs. [...] Cameron Jacobs MD on 05/18/2025 2:34 PM Kaela Khan MD IMG XR PROCEDURES Final [...] forearm, right forearm was performed using a [employer] Horizon A Dual-energy X-ray Absorptiometry (DXA) scanner [...] left forearm, right forearm wasperformed using a [employer] Horizon A Dual-energy X-ray Absorptiometry (DXA)scanner (software [...] on 05/18/2025 2:09 PM Kaela Khan MD IM DXA PROCEDURES Final Result * (ABNORMAL) Pain Management, Quantitative Urine Drug Testing (05/18/2025 8:47 AM EST) [place] Alprazolam <20 <20 ng/mL 05/21 3:43 PM EST [facility] [place] Midazolam <20 <20 ng/mL 2024 3:43 PM EST [facility] [place] Triazolam <20 <20 ng/mL 2024 3:43 PM EST [facility] Alprazolam <10 <10 ng/mL 05/21/2025 3:43 PM EST [facility] Aminoclonazepam <20 <20 ng/mL 3:43 PM EST [facility] Amphetamine <50 <50 ng/mL 05/21/2025 3:43 PM EST [facility] Benzoylecgonine <50 <50 ng/mL 3:43 PM EST [facility] Buprenorphine <10 <10 ng/mL 05/21/2025 3:43 PM EST [facility] Buprenorphine Glucuronide <50 <50 ng/mL 05/21/2025 3:43 PM EST [facility] Butalbital <50 <50 ng/mL 05/21/2025 3:43 PM EST [facility] 9 Carboxy THC <10 <10 ng/mL 05/21/2025 3:43 PM EST [facility] 9 Carboxy THC Glucuronide <25 <25 ng/mL 05/21/2025 3:43 PM EST [facility] Clonazepam <10 <10 ng/mL 05/21/2025 3:43 PM EST [facility] Codeine <50 <50 ng/mL 05/21/2025 3:43 PM EST [facility] Codeine Glucuronide <50 <50 ng/mL 05/21 3:43 PM EST [facility] Cyclobenzaprine 412(H) <50 ng/mL 3:43 PM EST [facility] Desmethyl Tramadol <50 <50 ng/mL 2024 3:43 PM EST [facility] Diazepam <10 <10 ng/mL 05/21/2025 3:43 PM EST [facility] EDDP - Methadone Metabolite <50 <50 ng/mL 05/21/2025 3:43 PM EST [facility] Fentanyl <1 <1 ng/mL 05/21/2025 3:43 PM EST [facility] Hydrocodone <50 <50 ng/mL 05/21/2025 3:43 PM EST [facility] Hydromorphone <50 <50 ng/mL 05/21/2025 3:43 PM EST [facility] Hydromorphone Glucuronide <50 <50 ng/mL 05/21/2025 3:43 PM EST [facility] Lorazepam <20 <20 ng/mL 05/21/2025 3:43 PM EST [facility] Lorazepam Glucuronide <50 <50 ng/mL 05/21/2025 3:43 PM EST [facility] MDA <50 <50 ng/mL 05/21/2025 3:43 PM EST [facility] MDMA <50 <50 ng/mL 05/21/2025 3:43 PM EST [facility] Meperidine <50 <50 ng/mL 05/21/2025 3:43 PM EST [facility] Methadone <50 <50 ng/mL 05/21/2025 3:43 PM EST [facility] Methamphetamine <50 <50 ng/mL 3:43 PM EST [facility] Methylphenidate <50 <50 ng/mL 3:43 PM EST [facility] 6 Monoacetyl morphine <10 <10 ng/mL 05/21/2025 3:43 PM EST [facility] Morphine <50 <50 ng/mL 05/21/2025 3:43 PM EST [facility] Morphine Glucuronide <50 <50 ng/mL 05/12 3:43 PM EST [facility] Naloxone <50 <50 ng/mL 05/21/2025 3:43 PM EST [facility] Naloxone Glucuronide <50 <50 ng/mL 05/12 3:43 PM EST [facility] Norbuprenorphine <10 <10 ng/mL 05/21/20 3:43 PM EST [facility] Norbuprenorphine Glucuronide <50 <50 ng/mL 05/21/2025 3:43 PM EST [facility] Nordiazepam <20 <20 ng/mL 05/21/2025 3:43 PM EST [facility] Norfentanyl <2 <2 ng/mL 05/21/2025 3:43 PM EST [facility] Normeperidine <50 <50 ng/mL 05/21/2025 3:43 PM EST [facility] PCP Quant, Ur <50 <50 ng/mL 05/21/2025 3:43 PM EST [facility] Phenobarbital <50 <50 ng/mL 05/21/2025 3:43 PM EST [facility] Oxazepam <20 <20 ng/mL 05/21/2025 3:43 PM EST [facility] Oxazepam Glucuronide <50 <50 ng/mL 05/12 3:43 PM EST [facility] Oxycodone 861(H) <50 ng/mL 05/21/2025 3:43 PM EST [facility] Oxymorphone <50 <50 ng/mL 05/21/2025 3:43 PM EST [facility] Oxymorphone Glucuronide 163(H) <50 ng/mL 05/21/2025 3:43 PM EST [facility] Secobarbital <50 <50 ng/mL 05/21/2025 3:43 PM EST [facility] Tramadol <50 <50 ng/mL 05/21/2025 3:43 PM EST [facility] Temazepam <20 <20 ng/mL 05/21/2025 3:43 PM EST [facility] Temazepam Glucuronide <50 <50 ng/mL 05/21/2025 3:43 PM EST [facility] Urine Urine specimen obtained by clean catch procedure / Unknown Non-blood Collection / Unknown 05/18/2025 8:47 AM EST 05/18/2025 9:36 AM EST [facility] - 05/21/2025 3:43 PM [...] laboratory. Test performed by LC-MS/MS at the [facility]. This test was developed and its performance characteristics determined by [facility]. It has not been cleared or approved by the FDA. The laboratory is regulated under CLIA as qualified to perform high-complexity testing. This test is used for clinical purposes. Kaela Khan MD LAB URINE ORDERABLES Jennifer l Result Performing Organization Address [facility]/ZIP Co de Phone Number [facility] [address] [place] [address] * Alpha fetoprotein, serum (05/18/2025 8:47 AM EST) Alpha Fetoprotein, Serum 5.9 <10.0 ng/mL 05/18/2025 10:45 AM EST [facility] Blood Venous blood specimen / Unknown Venipuncture / Unknown 05/18/2025 8:47 AM EST 05/18/2025 9:02 AM EST Narrative [facility] - 05/18/2025 10:45 AM EST Performed by [employer] electrochemiluminescent immunoassay which is traceable to the [address] [place] [address] WHO Reference standard 72/255. Results obtained with different test methods or kits cannot be used interchangeably. Kaela Khan MD LAB BLOOD ORDERABLES Jennifer l Result Performing Organization Address [facility] Co de Phone Number [facility] [address] [place] [address] * Treponema Pallidum (Syphilis) Antibodies with Reflex to RPR and RPR Titer (Those with NO known Syphilis) (05/18/2025 8:47 AM EST) Syphilis Antibody (IgG+IgM) Nonreactive Nonreactive 05/18/2025 10:04 AM EST [facility] Comment:Nonreactive. No sero logic evidence of syphilis. No follow-up necessary unless clinically indicated (e.g., early syphilis). Blood Venous blood specimen / Unknown Venipuncture / Unknown 05/18/2025 8:47 AM EST 05/18/2025 9:03 AM EST Kaela Khan MD LAB BLOOD ORDERABLES Jennifer l Result Performing Organization Address City/[facility]/ZIP Co de Phone Number [facility] [address] [place] [address] * Cryptococcal Ag, Serum (05/18/2025 8:47 AM EST) Pathologist [facility] Cryptococcal Antigen Result (Serum) Negative Negative 05/18/2025 11:23 AM EST [facility] Blood Venous blood specimen / Unknown Venipuncture / Unknown 05/18/2025 8:47 AM EST 05/18/2025 9:13 AM EST Kaela Khan MD LAB MICROBIOLOGY - GENERA L ORDERABLES Final Result [facility] [address] [place] [address] * Liver Kidney Microsome Antibodies (SO) (05/18/2025 8:47 AM EST) Pathologist [facility] Xasec-Qsghdj-L icrosome Abs, IgG by IFA <1:20 <1:20 05/21/2025 4:44 AM EST [facility] ([facility]) Blood Venous blood specimen / Unknown Venipuncture / Unknown 05/18/2025 8:47 AM EST 05/18/2025 9:03 AM EST Narrative [facility] ([facility]) - 05/21/2025 4:44 AM EST INTERPRETIVE INFORMATION: Kdehy-Qqjvfi-Loksjiuor Abs, IgG Liver-Kidney Microsome IgG antibody (anti-LKM), as detected by indirect immunofluorescent antibody (IFA) techniques, may be observed in patients with autoimmune hepatitis type 2 (AIH-2), AIH-2 associated with autoimmune scxevdnvimmyatodvu-wbfsktvclhf-nuvjsslqoo dystrophy (APECED), viral hepatitis C or D, and some forms of drug-induced hepatitis. This IFA does not differentiate among the four types of LKM antibodies (LKM-1, LKM-2, LKM-3, and a fourth type that recognizes CY and CY antigens). Of these, anti-LKM-1 (cytochrome [id number]) IgG antibodies are considered specific for AIH-2. This test was developed and its performance characteristics determined by [facility]. It has not been cleared or approved by the US Food and Drug Administration. This test was performed in a CLIA certified laboratory and is intended for clinical purposes. Performed By: [facility] [address] [place] [address] Simulation Technician: Kiel Mayfield MD, PhD CLIA Number: [id number] us Kaela Khan MD LAB BLOOD ORDERABLES Jennifer valdovinos Result [facility]) [address] [place] [address] * (ABNORMAL) Herpes Simplex Type 1 and Type 2 Glycoprotein G-Specific Antibodies, IgG (SO) (05/18/2025 8:47 AM EST) HSV 1 Glycoprotien G Ab, IgG >62.20(H) <=0.89 IV 05/20/2025 2:30 PM EST [facility] ([employer]) HSV 2 Glycoprotein G Ab, IgG 6.40(H) <=0.89 IV 05/20/2025 2:30 PM EST [facility] ([employer]) Blood Venous blood specimen / Unknown Venipuncture / Unknown 05/18/2025 8:47 AM EST 05/18/2025 9:02 AM EST Narrative [facility] ([employer]) - 05/20/2025 2:30 PM EST REFERENCE INTERVAL: [...] HSV-2 is </= 3.0 IV. Performed By: [facility] [address] [place] [address] Simulation Technician: Kiel Mayfield MD, PhD CLIA Number: [id number] Kaela Khan MD LAB BLOOD ORDERABLES Jennifer l Result Performing Organization Address [facility] de Phone Number [facility] ([place] [address] * (ABNORMAL) Cytoplasmic Pattern (05/18/2025 8:47 AM EST) Cytoplasm Pattern AMA(A) 05/21/2025 11:08 PM EST [facility] ([employer]) Cytoplasmic Titer 1:80(A) 05/21/2025 11:08 PM EST [facility] ([employer]) Blood Venous blood specimen / Unknown Venipuncture / Unknown 05/18/2025 8:47 AM EST 05/18/2025 9:02 AM EST Narrative [facility] ([employer]) - 05/21/2025 11:08 PM EST Performed By: [facility] [address] [place] [address] Simulation Technician: Kiel Mayfield MD, PhD CLIA Number: [id number] Kaela Khan MD LAB BLOOD ORDERABLES Jennifer l Result Performing Organization Address [facility] Co de Phone Number [facility] ([employer]) [address] [place] [address] * (ABNORMAL) JEANNIE Single Pattern (Reflex only) (05/18/2025 8:47 AM EST) JEANNIE Pattern Homogeneou s(A) 05/21/2025 11:08 PM EST [facility] ([facility]) JEANNIE Titer 1:80(A) 05/21/2025 11:08 PM EST [facility] ([facility]) Blood Venous blood specimen / Unknown Venipuncture / Unknown 05/18/2025 8:47 AM EST 05/18/2025 9:02 AM EST Narrative [facility] ([facility]) - 05/21/2025 11:08 PM EST Performed By: [facility] [address] [place] [address] Simulation Technician: Kiel Mayfield MD, PhD CLIA Number: [id number] Kaela Khan MD LAB BLOOD ORDERABLES Jennifer l Result [facility]) [address] [place] [address] * Kagtk-7-Ktimwphuptz Enzyme Conc and Phenotype (SO) (05/18/2025 8:47 AM EST) ALPHA 1 ANTITRYPSIN 129 90 - 200 mg/dL 05/22/2025 7:13 PM EST [facility] ([facility]) A1A Phenotype M1Z 05/22/2025 7:13 PM EST [facility] ([facility]) Blood Venous blood specimen / Unknown Venipuncture / Unknown 05/18/2025 8:47 AM EST 05/18/2025 9:02 AM EST Narrative [facility] ([facility]) - 05/22/2025 7:13 PM EST To convert [...] within the previous 21 days. Performed By: [facility] [address] [place] [address] Simulation Technician: Kiel Mayfield MD, PhD CLIA Number: [id number] Kaela Khan MD LAB BLOOD ORDERABLES Jennifer l Result Performing Organization Address City/[facility] Co de Phone Number [facility] ([facility]) [address] [place] [address] * HIV 1 & 2 Antibody/Antigen Screen (05/18/2025 8:47 AM EST) Pathologist [facility] HIV 1 & 2 Antibody/Antigen Screen Non Reactive Non Reactive 05/18/2025 9:44 AM EST [facility] Comment:Screening for HIV 1 & 2 antibodies, and P24 antigen is NONREACTIVE. No confirmatory testing is required. Blood Venous blood specimen / Unknown Venipuncture / Unknown 05/18/2025 8:47 AM EST 05/18/2025 9:03 AM EST Kaela Khan MD LAB BLOOD ORDERABLES Jenniefr l Result Performing Organization Address City/[facility] Co de Phone Number [facility] [address] [place] [address] * (ABNORMAL) Anti-smooth muscle antibody, IgG (SO) (05/18/2025 8:47 AM EST) [facility] Smooth Muscle Ab, IgG Titer 1:20(H) <1:20 05/21/2025 4:38 AM EST [facility] ([facility]) Blood Venous blood specimen / Unknown Venipuncture / Unknown 05/18/2025 8:47 AM EST 05/18/2025 9:02 AM EST Narrative [facility] ([facility]) - 05/21/2025 4:38 AM EST INTERPRETIVE INFORMATION: Smooth Muscle Ab, IgG Titer Less than 1:20 ........ Negative - No antibody detected. 1:20 - 1:80 .......... Weak Positive - Suggest repeat in two to three weeks with fresh specimen. 1:160 or greater ...... Positive - Suggestive of autoimmune hepatitis or chronic active hepatitis. Performed By: [facility] [address] [place] [address] Simulation Technician: Kiel Mayfield MD, PhD CLIA Number: [id number] Kaela Khan MD LAB BLOOD ORDERABLES Jennifer l Result Performing Organization Address [facility] Co de Phone Number [facility] ([facility]) [address] [place] [address] * Mitochondrial M2 Antibody, IgG (CRISTAL) (SO) (05/18/2025 8:47 AM EST) MITOCHONDRIA M2 AB IGG 23.6 0.0 - 24.9 Units 05/19/2025 11:51 PM EST [facility] ([facility]) Serum Venous blood specimen / Unknown 05/18/2025 8:47 AM EST 05/18/2025 9:02 AM EST Narrative [facility] ([facility]) - 05/19/2025 11:51 PM EST REFERENCE INTERVAL: [...] ORDERABLES Jennifer l Result Performing Organization Address City/[facility]/ZIP Co de Phone Number [facility] ([facility]) [address] [place] [address] * Ceruloplasmin (05/18/2025 8:47 AM EST) Pathologist [facility] Ceruloplasmin 32 20 - 60 mg/dL 05/21/2025 1:09 AM EST [facility] Blood Venous blood specimen / Unknown Venipuncture / Unknown 05/18/2025 8:47 AM EST 05/18/2025 9:03 AM EST Kaela Khan MD LAB BLOOD ORDERABLES Jennifer l Result Performing Organization Address [facility] Co de Phone Number [address] [address] * Nicotine Cotinine Metabolite (05/18/2025 8:47 AM EST) NICOTINE <5 <5 ng/mL 05/20/2025 2:5 0 PM EST [facility] Cotinine <5 <5 ng/mL 05/20/2025 2:5 0 PM EST [facility] Blood Venous blood specimen / Unknown Venipuncture / Unknown 05/18/2025 8:47 AM EST 05/18/2025 9:02 AM EST Narrative [facility] - 05/20/2025 2:50 PM EST Testing performed by LC-MS/MS at the [facility] Special [facility]Toxicology [facility]. This test was developed and its performance characteristics determined by [facility]. This assay has not been cleared by the FDA. The laboratory is regulated under CLIA as qualified to perform high-complexity testing. This test is used for clinical purposes. Kaela Khan MD LAB BLOOD ORDERABLES Jennifer l Result Performing Organization Address [facility] de Phone Number [facility] [address] [place] [address] * (ABNORMAL) Tiana Prakash IgG Ab (SO) (05/18/2025 8:47 AM EST) EBV ANTIBODY TO VIRAL CAPSID ANTIGEN IGG 124.0(H) <=17.9 U/mL 05/20/2025 2:25 PM EST [facility] ([facility]) Blood Venous blood specimen / Unknown Venipuncture / Unknown 05/18/2025 8:47 AM EST 05/18/2025 9:02 AM EST Narrative [facility] ([facility]) - 05/20/2025 2:25 PM EST INTERPRETIVE INFORMATION: Tiana-Prakash Virus Antibody to Viral Capsid Antigen, IgG 17.9 U/mL or less.......Not Detected 18.0-21.9 U/mL..........Indeterminate - Repeat testing in 10-14 days may be helpful. 22.0 U/mL or greater....Detected Performed By: [facility] [address] [place] [address] Simulation Technician: Kiel Mayfield MD, PhD CLIA Number: [id number] Kaela Khan MD LAB BLOOD ORDERABLES Jennifer l Result [facility] ([facility]) [address] [place] [address] * Hepatitis B Core Total Antibody IgG,IgM (05/18/2025 8:47 AM EST) Hepatitis B Core Total Antibody IgG,IgM Negative Negative 05/18/2025 10:04 AM EST [facility] Blood Venous blood specimen / Unknown Venipuncture / Unknown 05/18/2025 8:47 AM EST 05/18/2025 9:13 AM EST Kaela Khan MD LAB BLOOD ORDERABLES Jennifer l Result Performing Organization Address City/[facility]/ZIP Co de Phone Number [facility] [address] [place] [address] * ABO/Rh (05/18/2025 8:47 AM EST) ABO/Rh A Positive 05/18/2025 9:20 AM EST BLOOD BANK Blood Venous blood specimen / Unknown Venipuncture / Unknown 05/18/2025 8:47 AM EST 05/18/2025 9:20 AM EST Kaela Khan MD LAB BLOOD BANK TEST ORDER J LUIS Final Result Performing Organization Address City/[facility] Co de Phone Number BLOOD BANK [address] * Alcohol Urine (05/18/2025 8:47 AM EST) Alcohol Urine Negative Negative 05/18/2025 12:48 PM EST [facility] Urine Urine specimen obtained by clean catch procedure / Unknown Non-blood Collection / Unknown 05/18/2025 8:47 AM EST 05/18/2025 9:36 AM EST Narrative [facility] - 05/18/2025 12:48 PM EST The correlation between urine and serum ethanol concentration is highly variable. Test performed by Gas Chromatography at the [facility]. This test was developed and its performance characteristics determined by [facility]. It has not been cleared or approved by the FDA.The laboratory is regulated under CLIA as qualified to perform high-complexity testing. This test is used for clinical purposes only. Kaela Khan MD LAB URINE ORDERABLES Jennifer l Result Performing Organization Address City/[facility]/ZIP Co de Phone Number [facility] [address] [place] [address] * (ABNORMAL) Vitamin D 25 Hydroxy (05/18/2025 8:47 AM EST) Pathologist [facility] Vitamin D 25 Hydroxy 18.9(L) 20.0 - 80.0 ng/mL 05/18/2025 10:04 AM EST [facility] Blood Venous blood specimen / Unknown Venipuncture / Unknown 05/18/2025 8:47 AM EST 05/18/2025 9:02 AM EST Narrative [facility] - 05/18/2025 10:04 AM EST Testing performed on Cam[employer] Ken[employer] Writer/Runner, standardized against NIST SRM [id number]. When testing [...] MD LAB BLOOD ORDERABLES Jennifer l Result [facility] [address] [place] [address] * (ABNORMAL) Comprehensive Urine Drug Screening, Qualitative Assay, >= 27 Drug Classes (:47 AM EST) Acetaminophen Negative Negative 05/20/2025 4:38 PM EST [facility] Alprazolam Negative Negative 05/20/2025 4:38 PM EST [facility] Amantadine Negative Negative 05/20/2025 4:38 PM EST [facility] Amitriptyline Negative Negative 05/20/2025 4:38 PM EST [facility] Amphetamine Negative Negative 05/20/2025 4:38 PM EST [facility] Atenolol Negative Negative 05/20/2025 4:38 PM EST [facility] Benzoylecgonine Negative Negative 4:38 PM EST [facility] Bisoprolol Negative Negative 05/20/2025 4:38 PM EST [facility] Bupropion Negative Negative 05/20/2025 4:38 PM EST [facility] Butalbital Negative Negative 05/20/2025 4:38 PM EST [facility] Carbamazepine Negative Negative 05/20/2025 4:38 PM EST [facility] Carisoprodol Negative Negative 05/20/2025 4:38 PM EST [facility] Chlorpheniramine Negative Negative 05/20/20 4:38 PM EST [facility] Citalopram Negative Negative 05/20/2025 4:38 PM EST [facility] Clindamycin Negative Negative 05/20/2025 4:38 PM EST [facility] Clonidine Negative Negative 05/20/2025 4:38 PM EST [facility] Clopidogrel / Ticlopidine Negative Negative 05/20/2025 4:38 PM EST [facility] Cocaethylene Negative Negative 05/20/2025 4:38 PM EST [facility] Cocaine Negative Negative 05/20/2025 4:38 PM EST [facility] Codeine Negative Negative 05/20/2025 4:38 PM EST [facility] Cyclobenzaprine Positive(A) Negative 05/20/20 4:38 PM EST [facility] Desvenlafaxine Negative Negative 05/20/2025 4:38 PM EST [facility] Dextromethorphan Negative Negative 05/20/20 4:38 PM EST [facility] Diazepam Negative Negative 05/20/2025 4:38 PM EST [facility] Diltiazem Negative Negative 05/20/2025 4:38 PM EST [facility] Diphenhydramine Positive(A) Negative 05/20/20 4:38 PM EST [facility] Doxepine Negative Negative 05/20/2025 4:38 PM EST [facility] Doxylamine Negative Negative 05/20/2025 4:38 PM EST [facility] EDDP-Methadone metabolite Negative Negative 05/20/2025 4:38 PM EST [facility] Fentanyl Negative Negative 05/20/2025 4:38 PM EST [facility] Fluconazole Negative Negative 05/20/2025 4:38 PM EST [facility] Fluoxetine Negative Negative 05/20/2025 4:38 PM EST [facility] Guaifenesin Negative Negative 05/20/2025 4:38 PM EST [facility] Haloperidol Negative Negative 05/20/2025 4:38 PM EST [facility] Heroin/6-FROYLAN Negative Negative 05/20/2025 4:38 PM EST [facility] Hydrocodone Negative Negative 05/20/2025 4:38 PM EST [facility] Hydroxyzine / Cetirizine metabolite Negative Negative 05/20/2025 4:38 PM EST [facility] Ibuprofen Negative Negative 05/20/2025 4:38 PM EST [facility] Imipramine Negative Negative 05/20/2025 4:38 PM EST [facility] Ketamine Negative Negative 05/20/2025 4:38 PM EST [facility] Labetolol Negative Negative 05/20/2025 4:38 PM EST [facility] Lamotrigine Negative Negative 05/20/2025 4:38 PM EST [facility] Levetiracetam Negative Negative 05/20/2025 4:38 PM EST [facility] Lidocaine Negative Negative 05/20/2025 4:38 PM EST [facility] MDA Negative Negative 05/20/2025 4:38 PM EST [facility] MDMA Negative Negative 05/20/2025 4:38 PM EST [facility] Memantine Negative Negative 05/20/2025 4:38 PM EST [facility] Meperidine Negative Negative 05/20/2025 4:38 PM EST [facility] Meprobamate Negative Negative 05/20/2025 4:38 PM EST [facility] Metaxalone Negative Negative 05/20/2025 4:38 PM EST [facility] Methamphetamine Negative Negative 4:38 PM EST [facility] Methocarbamol Negative Negative 05/20/2025 4:38 PM EST [facility] Methylecgonine Negative Negative 05/20/2025 4:38 PM EST [facility] Metoclopramide Negative Negative 05/20/2025 4:38 PM EST [facility] Metoprolol Positive(A) Negative 05/20/2025 4:38 PM EST [facility] Metronidazole Negative Negative 05/20/2025 4:38 PM EST [facility] Midazolam Negative Negative 05/20/2025 4:38 PM EST [facility] Midazolam Metabolite Negative Negative 05/20/2025 4:38 PM EST [facility] Mirtazapine Negative Negative 05/20/2025 4:38 PM EST [facility] Misc Test Result Positive(A) Negative 025 4:38 PM EST [facility] Comment:Ropinirole detected Naproxen Negative Negative 05/20/2025 4:38 PM EST [facility] Nefazodone Negative Negative 05/20/2025 4:38 PM EST [facility] Norfentanyl Negative Negative 05/20/2025 4:38 PM EST [facility] Nortriptyline Negative Negative 05/20/2025 4:38 PM EST [facility] Ordanstron Negative Negative 05/20/2025 4:38 PM EST [facility] Oxcarbazepine Negative Negative 05/20/2025 4:38 PM EST [facility] Oxycodone Positive(A) Negative 05/20/2025 4:38 PM EST [facility] Paroxethine Negative Negative 05/20/2025 4:38 PM EST [facility] Phenobarbital Negative Negative 05/20/2025 4:38 PM EST [facility] Phentermine Negative Negative 05/20/2025 4:38 PM EST [facility] Phenytoin Negative Negative 05/20/2025 4:38 PM EST [facility] Primidone Negative Negative 05/20/2025 4:38 PM EST [facility] Promethazine Negative Negative 05/20/2025 4:38 PM EST [facility] Propofol Negative Negative 05/20/2025 4:38 PM EST [facility] Propranolol Negative Negative 05/20/2025 4:38 PM EST [facility] Quetiapine Negative Negative 05/20/2025 4:38 PM EST [facility] Quinine Negative Negative 05/20/2025 4:38 PM EST [facility] Rantidine Negative Negative 05/20/2025 4:38 PM EST [facility] Sertraline Negative Negative 05/20/2025 4:38 PM EST [facility] Spironolactone Positive(A) Negative 4:38 PM EST [facility] Tizanidine Negative Negative 05/20/2025 4:38 PM EST [facility] Topiramate Negative Negative 05/20/2025 4:38 PM EST [facility] Tramadol Negative Negative 05/20/2025 4:38 PM EST [facility] Trazadone/ Trazadone metabolite Negative Negative 05/20/2025 4:38 PM EST [facility] Trimethoprim Negative Negative 05/20/2025 4:38 PM EST [facility] Valproic Acid Negative Negative 05/20/2025 4:38 PM EST [facility] Venlafaxine Negative Negative 05/20/2025 4:38 PM EST [facility] Verapamil Negative Negative 05/20/2025 4:38 PM EST [facility] Zolpidem Negative Negative 05/20/2025 4:38 PM EST [facility] Xylazine Negative Negative 05/20/2025 4:38 PM EST [facility] Urine Urine specimen obtained by clean catch procedure / Unknown Non-blood Collection / Unknown 05/18/2025 8:47 AM EST 05/18/2025 9:36 AM EST Kaela Khan MD LAB URINE ORDERABLES Jennifer l Result [facility] [address] [place] [address] * (ABNORMAL) Cytomegalovirus Antibody IgG (SO) (05/18/2025 8:47 AM EST) CMV ANTIBODY IGG >10.00(H) <=0.59 U/mL 05/20/2025 2:18 PM EST [facility] ([employer]) Blood Venous blood specimen / Unknown Venipuncture / Unknown 05/18/2025 8:47 AM EST 05/18/2025 9:02 AM EST Narrative [facility] ([employer]) - 05/20/2025 2:18 PM EST INTERPRETIVE INFORMATION: [...] laboratory at the same time. Performed By: [email or web address] [address] [place] [id number] Simulation Technician: Kiel Mayfield MD, PhD CLIA Number: [id number] Kaela Khan MD LAB BLOOD ORDERABLES Jennifer l Result [facility] ([employer]) [address] [place] [address] * (ABNORMAL) Varicella Zoster Antibody IgG (05/18/2025 8:47 AM EST) Varicella Zoster Antibody IgG Positive(A ) Negative 05/18/2025 10:57 AM EST [facility] Comment: Varicella-zoster IgG Result Interpretation: [...] MD LAB BLOOD ORDERABLES Jennifer l Result [facility] [address] [place] [address] * (ABNORMAL) Antinuclear Antibody (JEANNIE), HEp-2, IgG (SO) (05/18/2025 8:47 AM EST) Pathologist [facility] JEANNIE INTERPRETIVE COMMENT See Note 05/21/2025 11:08 PM EST [facility] ([employer]) Anti Nuc Ab Screen Detected( H) <1:80 05/21/2025 11:08 PM EST [facility] ([employer]) Blood Venous blood specimen / Unknown Venipuncture / Unknown 05/18/2025 8:47 AM EST 05/18/2025 9:02 AM EST Narrative [facility] ([employer]) - 05/21/2025 11:08 PM EST Clinical Interpretation: [...] not necessarily rule out SARD. Performed By: [facility] [address] [place] [address] Simulation Technician: Kiel Mayfield MD, PhD CLIA Number: [id number] us Kaela Khan MD LAB BLOOD ORDERABLES Jennifer l Result [facility] [address] [place] [address] * (ABNORMAL) LDH (05/18/2025 8:47 AM EST) LDH, Plasma 370(H) 116 - 250 U/L 05/18/2025 9:35 AM EST [facility] Blood Venous blood specimen / Unknown Venipuncture / Unknown 05/18/2025 8:47 AM EST 05/18/2025 9:03 AM EST Kaela Khan MD LAB BLOOD ORDERABLES Jennifer l Result Performing Organization Address City/[facility]/ZIP Co de Phone Number [facility] [address] [place] [address] * Hemoglobin A1c (05/18/2025 8:47 AM EST) Hemoglobin A1c 5.4 <5.7 % 05/18/2025 2:49 PM EST [facility] Blood Venous blood specimen / Unknown Venipuncture / Unknown 05/18/2025 8:47 AM EST 05/18/2025 9:05 AM EST Narrative [facility] - 05/18/2025 2:49 PM EST [facility] Interpretive Data: Diagnosis of Diabetes: Diabetic > or = 6.5% Pre-diabetic 5.7 to 6.4% Non-diabetic < or = 5.6% Glycemic Targets for Type I and Type II Diabetics: Non- Adults <7.0% Adults <6.0% Children and Adolescents <7.5% Source: [place] [employer]. Standards of medical care in diabetes,2017. Diabetes Care.2017:40 (suppl 1):S1-S135. Kaela Khan MD LAB BLOOD ORDERABLES Jennifer l Result Performing Organization Address City/[facility] Co de Phone Number [facility] [address] [place] [address] * (ABNORMAL) GGT (05/18/2025 8:47 AM EST) GGT, Plasma 52(H) 5 - 36 U/L 05/18/2025 9:35 AM EST [facility] Blood Venous blood specimen / Unknown Venipuncture / Unknown 05/18/2025 8:47 AM EST 05/18/2025 9:03 AM EST Kaela Khan MD LAB BLOOD ORDERABLES Jennifer l Result [facility] [address] [place] [address] * (ABNORMAL) CEA (05/18/2025 8:47 AM EST) Pathologist [facility] CEA, Serum 27.3(H) <4.0 ng/mL 05/18/2025 10:45 AM EST [facility] Blood Venous blood specimen / Unknown Venipuncture / Unknown 05/18/2025 8:47 AM EST 05/18/2025 9:02 AM EST Narrative [facility] - 05/18/2025 10:45 AM EST Normal range for smokers: < 5.5 ng/ml Normal range for non-smokers: <=4.0 ng/ml Performed by [employer] electrochemiluminescent immunoassay. Results obtained with different test methods or kits cannot be used interchangeably. Kaela Khan MD LAB BLOOD ORDERABLES Jennifer l Result Performing Organization Address City/[facility]/ZIP Co de Phone Number [facility] [address] [place] [address] * (ABNORMAL) Amylase, Plasma (05/18/2025 8:47 AM EST) [facility] Amylase 25(L) 27 - 114 U/L 05/18/2025 9:35 AM EST [facility] Blood Venous blood specimen / Unknown Venipuncture / Unknown 05/18/2025 8:47 AM EST 05/18/2025 9:03 AM EST Kaela Khan MD LAB BLOOD ORDERABLES Jennifer l Result [facility] [address] [place] [address] * (ABNORMAL) Lipid panel (05/18/2025 8:47 AM EST) Pathologist [facility] Cholesterol, Plasma 216(H) <200 mg/dL 05/18/2025 9:35 AM EST [facility] Comment: Cholesterol Reference Range (age >17 years): Desirable <200 mg/dL Borderline 200 to 239 mg/dL Undesirable >239 mg/dL HDL 85 >=50 mg/dL 05/18/2025 9:35 AM EST [facility] Comment: HDL Cholesterol Reference Ranges (age >17 years): Female, acceptable > or = 50 mg/dL Male, acceptable > or = 40 mg/dL Triglycerides, Plasma 93 <150 mg/dL 05/18/2025 9:35 AM EST [facility] Comment: Triglyceride Reference Range (age >17 years): Desirable: <150 mg/dL Borderline high: 150 to 199 mg/dL High: 200 to 499 mg/dL Very high: >499 mg/dL Increased risk of pancreatitis: >1000 mg/dL Cholesterol/HDL Ratio 3 05/18/2025 9:35 AM EST [facility] LDL, Calculated 115(H) <100 mg/dL 9:35 AM EST [facility] Comment: LDL Cholesterol Reference Range [...] 12 hours? Yes 05/18/2025 9:35 AM EST [facility] Blood Venous blood specimen / Unknown Venipuncture / Unknown 05/18/2025 8:47 AM EST 05/18/2025 9:03 AM EST us Kaela Khan MD LAB BLOOD ORDERABLES Jennifer valdovinos Result [facility] [address] [place] [address] * MR Cervical Spine wo IV Contrast [...] MD IMG MRI PROCEDURES Final Result * Hepatitis C Antibody (04/03/2025 6:38 AM EDT) Hepatitis C Antibody Negative Negative 04/03/2025 7:44 AM EDT [facility] Blood Venous blood specimen / Unknown Venipuncture / Unknown 04/03/2025 6:38 AM EDT 04/03/2025 7:02 AM EDT us Asael Esteves MD LAB BLOOD ORDERABLES Final Resul t [facility] [address] [place] [address] * COLONOSCOPY (06/18/2020) Anatomical Region Laterality Modality Endoscopy Narrative 06/18/2020 Ordered by an unspecified provider. Historical Provider GI PROCEDURE ORDERABLES Jennifer l Result from Last 3 Months or Most Recently Relevant to Health Maintenance Additional Health Concerns Active Problems Noted Date Diagnosed Date Appointments 06/04/2025 Symptom management 06/04/2025 Med Adherence 06/04/2025 Insurance [employer] MEDICAID [employer]ICA[employer] Advance Directives * Full Code (Latest Code Status on File) Date Activated Date Inactivated Comments 06/26/2025 12:00 AM 07/02/2025 3:35 PM Question Answer Comments I have reviewed the capacity from the link above and, if needed, have updated to appropriate status: Yes * Full Code Date Activated Date Inactivated Comments 05/24/2025 5:08 AM 05/31/2025 4:54 PM Question Answer Comments I have reviewed the capacity from the link above and, if needed, have updated to appropriate status: Yes Care Teams Calciner Feeder Relationship Specialty [place] [address] PCP - General 06/04/25 Mc Grant Referring Physician Gastroenterology 02/21/24 El Agarwal APRN [id number] Referring Physician Gastroenterology 03/21/25 Cely Diaz, RN [employer]ED [employer] PROGRAM [place], [place] Basket Patcher 05/28/25
[2025-07-07 18:57] LABS: Hematocrit 36.3 % (37.0-47.0); Hemoglobin 12.6 g/dL (12.2-16.2); Immature Granulocytes % 0.3 %; Mean Corpuscular HGB Conc 34.7 g/dL (31.8-35.4); Mean Corpuscular Hemoglobin 36.1 pg (27.0-31.2); Mean Corpuscular Volume 104.0 fl (81-99); Nucleated Red Blood Cells % 0 %; Platelet Count 114 K/mm3 (142-424); Red Blood Count 3.49 M/mm3 (4.20-5.40); Red Cell Distribution Width-SD 54.4 fL; White Blood Count 5.8 K/mm3 (4.8-10.8)
--- OUTSIDE RECORDS SUMMARY | 2025-07-07 18:57 | XMS_ITS | Encounter Summary ---
Author Organization [facility] Address [address] [place] [address] Care Team Providers Care Assistant Professor Of English Name Role Phone Trevor Rolon DO Primary Care Provider [phone] Mc Grant Unavailable [phone] El Agarwal APRN Unavailable [phone] Encounter Details Date Type Department Care [...] or domestically in the last month? No 05/08/2025 9:22 AM EDT Mycha rt, Generic documented as of this encounter Mental Status * Travel Screening Question Answer Entry Date Author Have you traveled internatio rachel or domestically in the last month? No 05/08/2025 9:22 AM EDT Mycha rt, Generic documented in this encounter Plan of Treatment Upcoming Encounters Date Type Department Care Team (Late st Contact Info) Description 07/17/2025 8:45 AM EST Clinical Support [facility] [address] [place] [address] 07/17/2025 10:30 AM EST Office Visit [facility] [place] [address] [place] [address] Nj Johns MD [address] [place] [address] documented as of this encounter Visit Diagnoses [...] as of this encounter Care Teams Assistant Professor Of English Relationship Specialty Start Date End Date Trevor Rolon DO [address] [facility] [address] [place] [address] PCP - General 11/22/20 06/03/25 Mc Grant [address] [facility] [address] [place] [address] Referring Physician Gastroenterology 02/21/24 El Agarwal APRN [id number] Referring Physician Gastroenterology 03/21/25 documented as of this encounter
--- OUTSIDE RECORDS SUMMARY | 2025-07-07 18:57 | XMS_ITS | Encounter Summary ---
Author Organization [facility] Address [address] [place] [address] Care Team Providers Care Roofing Supervisor Name Role Phone Trevor Rolon DO Primary Care Provider [phone] Mc Grant Unavailable [phone] El Agarwal APRN Unavailable [phone] Cely Diaz RN Unavailable Unavailable Encounter Details Date Type Department Care Team (Latest Contact Info) Description 05/29/2025 Travel Social History Tobacco Use Types Packs/Day [...] time in the [facility] were you homeless or living in a jail (including now)? No 05/28/2025 [facility] Utilities Answer Date Recorded In [...] or domestically in the last month? No 05/29/2025 8:49 AM EST Mycha rt, Generic documented as of this encounter Mental Status * Travel Screening Question Answer Entry Date Author Have you traveled internatio rachel or domestically in the last month? No 05/29/2025 8:49 AM EST Mycha rt, Generic documented in this encounter Plan of Treatment Upcoming Encounters Date Type Department Care Team (Late st Contact Info) Description 07/17/2025 8:45 AM EST Clinical Support [facility] [place] [address] [place] [address] 07/17/2025 10:30 AM EST Office Visit [facility] [place] [address] [place] [phone] Nj Johns MD [address] [place] [address] documented as of this encounter [...] documented as of this encounter Care Teams Roofing Supervisor Relationship Specialty Start Date End Date Trevor Rolon DO [address] [facility] [address] [place] [address] PCP - General 11/22/20 06/03/25 Mc Grant [address] [facility] [address] [place] [address] Referring Physician Gastroenterology 02/21/24 El Agarwal APRN [id number] Referring Physician Gastroenterology 03/21/25 Cely Diaz, RN [employer]ED [employer]FORMATION PROGRAM [place], [place] Shoemaking Finisher 05/28/25 documented as of this encounter
--- OUTSIDE RECORDS SUMMARY | 2025-07-07 18:57 | XMS_ITS | Encounter Summary ---
Author Organization [facility] Address [address] [place] [address] Care Team Providers Care Care Trainer Name Role Phone Trevor Rolon DO Primary Care Provider [phone] Mc Grant Unavailable [phone] El Agarwal APRN Unavailable [phone] Cely Diaz RN Unavailable Unavailable Jesus Luis MD Primary Care Provider [phone] Encounter Details Date Type Department Care Team (Late st Contact Info) Description 04/16/2015 Orders Only External Location [address] [place] [address] Provider, External Social History Tobacco Use Types [...] Description 07/17/2025 8:45 AM EST Clinical Support [facility] [address] [place] [address] 07/17/2025 10:30 AM EST Office Visit [facility] [address] [place] [phone] Nj Johns MD [address] [place] [address] documented as of this encounter [...] documented as of this encounter Care Teams Care Trainer Relationship Specialty Start Date End Date Trevor Rolon DO [address] [facility] [address] [place] [address] PCP - General 11/22/20 06/03/25 [place] [address] PCP - General 06/04/25 Mc Grant [address] [facility] [address] [place] [address] Referring Physician Gastroenterology 02/21/24 El Agarwal APRN [id number] Referring Physician Gastroenterology 03/21/25 Cely Diaz, [place] [employer]ED [employer] PROGRAM [place], [place] Superintendent Plant 05/28/25 documented as of this encounter
--- OUTSIDE RECORDS SUMMARY | 2025-07-07 18:57 | XMS_ITS | Encounter Summary ---
Author Organization [facility] Address [address] [place] [address] Care Team Providers Care Knee Bolter Name Role Phone Trevor Rolon DO Primary Care Provider [phone] Mc Grant Unavailable [phone] El Agarwal APRN Unavailable [phone] Encounter Details Date Type Department Care Team (Late st Contact Info) Description 05/17/2025 [facility] [address] [facility] [address] [place] [address] Madyson Sarabia, RN HOSPITAL LIVER [id number] [address] [place] [address] Social History Tobacco Use Types Packs/Day Years [...] Description 07/17/2025 8:45 AM EST Clinical Support [facility] [place] [address] [place] [address] 07/17/2025 10:30 AM EST Office Visit [facility] [place] [address] [facility] [address] [place] [address] Nj Johns MD [address] [facility] [address] [place] [address] documented as of this encounter Visit Diagnoses [...] documented as of this encounter Care Teams Knee Bolter Relationship Specialty Start Date End Date Trevor Rolon DO [address] [address] PCP - General 11/22/20 06/03/25 Mc Grant [address] [facility] [address] [place] [address] Referring Physician Gastroenterology 02/21/24 El gAarwal APRN [id number] Referring Physician Gastroenterology 03/21/25 documented as of this encounter
--- OUTSIDE RECORDS SUMMARY | 2025-07-07 18:57 | XMS_ITS | Encounter Summary ---
Author Organization [facility] Address [address] [place] [address] Care Team Providers Care Duct Layer Supervisor Name Role Phone Trevor Rolon DO Primary Care Provider [phone] Mc Grant Unavailable [phone] El Agarwal APRN Unavailable [phone] Encounter Details Date Type Department Care [...] someone who was sick? No / Unsure 05/14/2025 1:04 PM EST Mary Leyva Do you have any of the following new or worsening symptoms? None of these 05/14/2025 1:04 PM EST Dajuan Leyva A * Travel Screening Question Answer Date of Assessment Author Have you traveled internatio rachel or domestically in the last month? No 05/14/2025 7:33 AM EST Mycha rt, Generic documented as of this encounter Mental Status * Communicable Disease Screening Question Answer Entry Date Author Have you been in contact with someone who was sick? No / Unsure 05/14/2025 1:04 PM EST Mary Leyva Do you have any of the following new or worsening symptoms? None of these 05/14/2025 1:04 PM EST Dajuan Leyva A * Travel Screening Question Answer Entry Date Author Have you traveled internatio rachel or domestically in the last month? No 05/14/2025 7:33 AM EST Mycha rt, Generic documented in this encounter Plan of Treatment Upcoming Encounters Date Type Department Care Team (Late st Contact Info) Description 07/17/2025 8:45 AM EST Clinical Support [facility] Transplant Center [address] [place] [address] 07/17/2025 10:30 AM EST Office Visit [facility] [address] [place] [address] Nj Johns MD [address] [facility] [address] [place] [address] documented as of this encounter Visit Diagnoses [...] documented as of this encounter Care Teams Duct Layer Supervisor Relationship Specialty Start Date End Date Trevor Rolon, [address] [facility] 201 [place] [address] PCP - General 11/22/20 06/03/25 Mc Grant [address] [facility] 201 [place] [address] Referring Physician Gastroenterology 02/21/24 El Agarwal APRN [id number] Referring Physician Gastroenterology 03/21/25 documented as of this encounter
--- OUTSIDE RECORDS SUMMARY | 2025-07-07 18:57 | XMS_ITS | Encounter Summary ---
Author Organization [facility] Address [address] [place] [address] Care Team Providers Care Manager Apple Name Role Phone Trevor Rolon DO Primary Care Provider [phone] Mc Grant Unavailable [phone] El Agarwal APRN Unavailable [phone] Cely Diaz RN Unavailable Unavailable Encounter Details Date Type Department Care Team (Latest Contact Info) Description 05/30/2025 Travel Social History Tobacco Use Types Packs/Day [...] any time in the past 12 m [facility], were you homeless or living in a group home (including now)? No 05/28/2025 [facility] Utilities Answer Date Recorded In [...] Description 07/17/2025 8:45 AM EST Clinical Support [facility]plant [place] [address] [place] [address] 07/17/2025 10:30 AM EST Office Visit [facility] [place] [address] [place] [address] Nj Johns MD [address] [facility] [address] [place] [address] documented as of this encounter Visit Diagnoses [...] as of this encounter Care Teams Manager Apple Relationship Specialty Start Date End Date Trevor Rolon DO [address] [facility] 201 [place] [address] PCP - General 11/22/20 06/03/25 Mc Grant [address] [facility] [address] [place] [address] Referring Physician Gastroenterology 02/21/24 El Agarwal APRN [id number] Referring Physician Gastroenterology 03/21/25 Cely Diaz, RN VALUE-BASED TRANSFORMATION PROGRAM [place] [employer] Reader 05/28/25 documented as of this encounter
--- OUTSIDE RECORDS SUMMARY | 2025-07-07 18:58 | XMS_ITS | Encounter Summary ---
Author Organization [facility] Address [address] [place] [address] Care Team Providers Care Stylist Assistant Name Role Phone Trevor Rolon DO Primary Care Provider [phone] Mc Grant Unavailable [phone] El Agarwal APRN Unavailable [phone] Cely Diaz RN Unavailable Unavailable Encounter Details Date Type Department Care Team (Late st Contact Info) Description 05/23/2025 Orders Only External Location [address] [place] [address] Provider, External Social History Tobacco Use Types [...] any time in the past 12 m [facility], were you homeless or living in a senior living (including now)? No 05/28/2025 [facility] Utilities Answer Date Recorded In the [...] AM EST Clinical Support [facility] [place] [address] [place] [address] 07/17/2025 10:30 AM EST Office Visit [facility] [address] [place] [address] Nj Johns MD [address] [place] [address] documented as of this encounter Procedures Procedure Name Priority Date/Time Associated Diagnosis Comments CT MSK OUTSIDE IMAGES 05/23/2025 11:53 PM EST documented in this encounter Results * CT MSK OUTSIDE IMAGES (05/23/2025 11:53 PM EST) Anatomical Region Laterality Modality Computed Tomogra phy 05/23/2025 11:5 3 PM EST us External Provider IMG CT PROCEDURES Edited Resul t - Final documented [...] documented as of this encounter Care Teams Stylist Assistant Relationship Specialty Start Date End Date Trevor Rolon DO [address] [facility] 201 [place] [address] PCP - General 11/22/20 06/03/25 Mc Grant [address] [facility] [address] [place] [address] Referring Physician Gastroenterology 02/21/24 El Agarwal APRN [id number] Referring Physician Gastroenterology 03/21/25 Cely Diaz RN VALUE-BASED TRANSFORMATION PROGRAM [place], [place] Scoring Machine Operator 05/28/25 documented as of this encounter
--- OUTSIDE RECORDS SUMMARY | 2025-07-07 18:58 | XMS_ITS | Encounter Summary ---
Author Organization [facility] Address [address] [place] [address] Care Team Providers Care Process Improvement Analyst Name Role Phone Trevor Rolon DO Primary Care Provider [phone] Mc Grant Unavailable [phone] El Agarwal APRN Unavailable [phone] Encounter Details Date Type Department Care Team (Latest Contact Info) Description 05/24/2025 Travel Social History Tobacco Use Types Packs/Day [...] were you homeless or living in a correction (including now)? No 05/25/2025 [facility] Utilities Answer Date Recorded In the [...] someone who was sick? No / Unsure 05/24/2025 3:20 AM Sanjuana Iraheta, CORWIN Do you have any of the following new or worsening symptoms? None of these 05/24/2025 3:20 AM Sanjuana Iraheta RN * Travel Screening Question Answer Date of Assessment Author Have you traveled internatio rachel or domestically in the last month? No 05/24/2025 3:20 AM Sanjuana Iraheta RN documented as of this encounter Mental Status * Communicable Disease Screening Question Answer Entry Date Author Have you been in contact with someone who was sick? No / Unsure 05/24/2025 3:20 AM Sanjuana Iraheta RN Do you have any of the following new or worsening symptoms? None of these 05/24/2025 3:20 AM Sanjuaan Iraheta RN * Travel Screening Question Answer Entry Date Author Have you traveled internatio rachel or domestically in the last month? No 05/24/2025 3:20 AM Sanjuana Iraehta RN documented in this encounter Plan of Treatment Upcoming Encounters Date Type Department Care Team (Late st Contact Info) Description 07/17/2025 8:45 AM EST Clinical Support [facility] [place] [address] [facility] [address] [place] [address] 07/17/2025 10:30 AM EST Office Visit [facility] [place] [address] [place] [address] Nj Johns MD [address] [facility] [address] [place] [address] documented as of this encounter Visit Diagnoses Not on filedocumented in this encounter Additional Health Concerns Infection Onset Date Last Indicated Resolved Time C. difficile Rule-Out 05/24/2025 05/24/20252024 3:50 PM EST Gastrointestinal Rule-Out 05/24/2025 05/24/2025 3:51 PM EST Assessment Noted Time PHQ-9 Depression Total Score: 18 025 7:06 AM EDT A fall risk assessment has been complete d for the patient 05/22/2025 12:43 PM EST A Body Mass Index follow-up plan has been documented for the patient 05/31/2025 1:22 PM EST documented as of this encounter Care Teams Process Improvement Analyst Relationship Specialty Start Date End Date Trevor Rolon DO [address] [facility] [place] [address] [place] [address] PCP - General 11/22/20 06/03/25 Mc Grant [address] [facility] [address] [place] [address] Referring Physician Gastroenterology 02/21/24 El Agarwal APRN [id number] Referring Physician Gastroenterology 03/21/25 documented as of this encounter
--- OUTSIDE RECORDS SUMMARY | 2025-07-07 18:58 | XMS_ITS | Clinical Summary ---
Author Organization [facility] nter Address [address] [place] [address] Care Team Providers Care Stencil Inspector Name Role Phone Trevor Rolon DO [...] 04/09/2020 Medications ergocalciferol (Vitamin D-2) 1.25 MG (11695 UT) capsule Take 1 capsule (1.25 mg) [...] 11 5 Active Insulin Pen Needle (Pen Austin) 32G X 4 MM miscIndications:Ty pe 2 [...] chew, or split. 30 tablet 2 5 Active rifAXIMin (Xifaxan) 550 MG tabletIndications: Encephalopathy, hepatic Take 1 tablet (550 mg) by mouth in the morning and at bedtime. 60 tablet 2 5 Active spironolactone (Aldactone) 100 MG tabletIndications: Cirrhosis of liver without ascites, unspecified hepatic cirrhosis type Take 2 tablets (200 mg) by mouth in the morning. 60 tablet 2 5 Active lactulose (Chronulac) 10 GM/15ML solutionIndication s:Hepatic [...] today Analysis of data: Dexcom Clarity avis asya Date of : [...] 6 months Dexcom showing: Dexcom Clarity avis asya Date [...] 3 months Dexcom showing: Dexcom Clarity avis asya Date [...] 3 months. Dexcom showing: Dexcom Clarity avis sky Date [...] ozempic .25mg each week. Sample given Lot# [id number] Exp Date 04/2024 # given 1 Sample [...] 3 months dexcom showing: Dexcom Clarity avis asya Date of [...] disturbances have subsided since establishing care with [facility]. Patient does state she is told [...] and severity improved since establishing care with [facility]. Good compliance with Xifaxin. Patient has [...] Patient is back with regular visits with [facility] and is doing better since [...] experienced similar symptoms and her GI in [place] started her on Xifaxan, which reportedly resolved the symptoms, despite a recurrence in October 2021. Her symptoms today have since significantly resolved, per patient. She states she has had no lapses in taking her medication during these periods, although today she is out of the medication and her GI in [place] has discharged her from the practice due to no-show visits. Dr. Rolon in [place] was called to see if he will Rx the medication. Referral to [facility] was made. Patient also has [...] Encounters Date Type Department Care Team Description 07/06/[address] [facility]Y [facility] [address] Floor Clinic [place] [phone] Mc Grant, DO 06/26/[address] [facility]EP [facility] [address], [place] [address] Demario Silva, DO 06/25/[address] [facility] DIABETES EDUCATION [address] [place] [address] Brigitte Mahoney NP 05/16/[address] [facility] OBGYN [facility]ACT[facility] [address] [place] [address] Ruby Hilton NP 05/10/[address] [facility] [address] [place] [address] Ruby Hilton NP transplant paper 04/16/[address] [facility]STRO[facility]OLOG[facility]ACT[facility] [address] [place] [address] El Agarwal NP from Last 3 Months Family History Medical [...] week 07/24/2022 How often do you attend [facility] or denominational services? More than 4 [...] Description 08/16/2025 10:00 AM EST Office Visit [facility] ENDOCRINOLOGY [facility]ACT[facility] [address] [place] [address] Brigitte Mahoney NP [address] [facility] [place] [address] 09/18/2025 1:30 PM EDT Office Visit [facility] RHEUMATOLOGY [facility]ACTICE [address] [place] [address] Suman Treviño MD [address] [facility] [place] [address] 12/13/2025 1:15 PM EDT Office Visit [facility] [address] [place] [address] Ruby Hilton NP [address] [place] [phone] Health Maintenance Due Date Last Done Comments CT Colonography 1969 ColoGuard Screening 1969 FIT-DNA 1969 FIT 1969 FOBT 1969 Sigmoidoscopy 1969 MMR Vaccines (1 of 1 - Standard series) 1970 DTaP/Tdap/Td Vaccines (1 - Tdap) 1988 HPV/Cotest 10/17/1999 Pneumococcal Vaccine (1 of 1 - PCV) 10/17/2019 Diabetes: Retinopathy Screening 04/02/2025 04/02/2023, 04/02/2023, 04/02/2023, Additional history exists Diabetes: Hemoglobin A1C 08/18/2025 025, 02/26/2025, 06/01/2024, Additional history exists Mammogram 06/13/2026 06/13/2025, 12/0 09/2024, 02/15/2024, Additional history exists Cervical Cancer Screening 12/12/2026 Pap Smear 12/12/2026 12/12/2024 Colonoscopy 07/31/2032 07/31/2022, 120 02/2020, 06/18/2020 Colorectal Cancer Screening 07/31/2032 Influenza Vaccine Completed 06/01/2025, , 05/21/2022 RSV under 20 month Aged Out No longer eligible based on patient's age to complete this topic Procedures Procedure Name Priority Date/Time Associated Diagnosis Comments HEMOGLOBIN A1C Routine 02/26/2025 1:00 PM EDT Type 2 diabetes mellitus with hyperglycemia, with long-term current use of insulin Other fatigue Hyperlipidemia PAP SMEAR Routine 12/12/2024 2:49 PM EDT Well woman exam with routine gynecological exam BI MAMMOGRAM SCREENING BILATERAL Routine 02/15/2024 9:38 AM EDT Encounter for screening mammogram for malignant neoplasm of breast COLONOSCOPY Routine 07/31/2022 7:53 AM EST Iron deficiency anemia, unspecified iron deficiency anemia type Other cirrhosis of liver from Last 3 Months or Most Recently Relevant to Health Maintenance Results * Hemoglobin A1c (02/26/2025 1:00 PM EDT) Hemoglobin A1C 5.1 3.0 - 6.0 % 02/26/2025 3:25 PM EDT [facility] Comment: Additional Reference Ranges: 6.0 - 9.0% Controlled Diabetic >9.0 Poorly Controlled Diabetic *Hemoglobin A1c is an FDA approved test for monitoring equipment operator intermodal yard glucose control in individuals with diabetes. It is not an approved screening test for diagnosing type 1 and type 2 diabetes. Results of Hemoglobin A1c are not reliable in patients with chronic blood loss, consequent variable erythrocyte lifespan, hemolytic diseases, , and significant blood loss. MEAN BLOOD GLUCOSE 99.67 mg/dl 02/26/2025 3:25 PM EDT [facility] Blood Venous blood specimen / Unknown Venipuncture / Unknown 02/26/2025 1:00 PM EDT 02/26/2025 1:00 PM EDT us Trevor Rolon DO LAB BLOOD ORDERABLES nal Result [facility] [address] [place] [address], * Pap Smear (12/12/2024 2:49 PM EDT) Pathologist [facility] [address] [place] [address] or [phone] Kp Dillon M.D., Surface Ship Usw Supervisor PATIENT NAME LABORATORY NO. [address]. [id number] AGE SEX SSN CLIENT REF # [facility] 54 1970 F [id number] [place] [address] BY-PASS REQUESTING M.D. ATTENDING M.D. COPY TO. [facility], [facility] [place] [address] DATE COLLECTED DATE RECEIVED DATE REPORTED 12/12/2024 12/13/2024 12/14/2024 ThinPrep Pap with [facility] DIAGNOSIS: Negative for intraepithelial lesion [...] 51, 52, 56, 58, 59, 66, 68 LINEN CONTROLLER: YESICA ROSALES (ASCP) CPT CODES: 45600, 75854 12/14/2024 1:33 PM EDT [facility] Swab Vaginal structure / Unknown Non-blood Collection / Unknown 12/12/2024 2:49 PM EDT 12/13/2024 8:15 AM EDT Ruby Hilton NP LAB CYTOLOGY ORDERABLES Final Result [facility] [address] [place] [address], * Colonoscopy (07/31/2022 7:53 AM EST) Anatomical Region Laterality Modality Endoscopy 07/31/2022 7:19 AM EST Impressions 07/31/2022 7:56 AM EST Impression: - Two 3 to 4 mm polyps in the ascending colon, removed with a cold biopsy forceps. Resected and retrieved. - Diverticulosis in the sigmoid colon. - Non-bleeding internal hemorrhoids. Narrative 07/31/2022 7:56 AM EST Patient Name: Avis Sky Attending MD: Mc [...] by the physician, the nurse and the health occupations instructor. The procedure was verified in the pre-procedure [...] the patient. Procedure Code(s): --- Professional --- 57885, Colonoscopy, flexible; with biopsy, single or multiple --- Technical --- 69949, Colonoscopy, flexible; with biopsy, single or multiple [...] or abscess without bleeding CPT copyright 2018 [employer]. All rights reserved. The codes documented in this report are preliminary and upon produce buyer review may be revised to meet current compliance requirements. DO Mc Ceja Jr., DO 07/31/2022 7:55:48 AM This report has been signed electronically. Number of Addenda: 0 Note Initiated On: 07/31/2022 7:19 AM Procedure Note Mc Grant KatieDO - 07/31/2022 Patient Name: Avis Sky Attending [...] procedure by the physician,the nurse and the health occupations instructor. The procedure wasverified in the pre-procedure area. [...] the patient. Procedure Code(s): --- Professional --- 81190, Colonoscopy, flexible; with biopsy, single or multiple --- Technical --- 34141, Colonoscopy, flexible; with biopsy, single or multiple [...] or abscess without bleeding CPT copyright 2018 [employer]. All rights reserved. The codes documented in this report are preliminary and upon produce buyer reviewmay be revised to meet current compliance [...] Recently Relevant to Health Maintenance Insurance [employer] [facility] Advance Directives * Full Code (Latest Code Status on File) Date Activated Date Inactivated Comments 07/23/2022 5:34 PM 07/25/2022 3:59 PM Care Teams Stencil Inspector Relationship Specialty Start Date End Date Trevor Rolon DO [address] [facility] [address] [place] [address] PCP - General Lucy Christopher DO [address] [place] [address] [place] [address] Consulting Physician Oncology 10/17/24
--- OUTSIDE RECORDS SUMMARY | 2025-07-07 18:58 | XMS_ITS | Encounter Summary ---
Author Organization [facility] Address [address] [place] [address] Care Team Providers Care Quality Control Assistant Name Role Phone Trevor Rolon DO Primary Care Provider [phone] Mc Grant Unavailable El Agarwal APRN Unavailable [phone] Encounter Details Date Type Department Care Team (Late st Contact Info) Description 05/25/2025 Patient Outreach [facility] [address] [place] [address] Hemalatha Kee Social History Tobacco Use Types Packs/Day Years [...] any time in the past 12 m [facility], were you homeless or living in a long term (including now)? No 05/25/2025 [facility] Utilities Answer Date Recorded In the past 12 months has th e [employer], gas, oil, or water company threatened to shut off services in your home? No 05/25/2025 Comments Unknown Sex and Gender Information Value Date Recorded Sex Assigned at Female 03/11/2021 7:37 PM EDT Legal Sex Female 8:49 PM EDT Gender Identity Female 03/11/2021 7:37 PM EDT Sexual Orientation Not on file documented as of this encounter Miscellaneous Notes * Progress Notes - Hemalatha Kee - 05/25/2025 2:00 PM EST Population Health SW attempted contact with pt bedside for introductions and review of [facility] program. Pt was occupied with care team; [facility] will [facility]-attempt contact at a later date. Hemalatha Kee, HARDWARE PRESS OPERATOR, DIRECTOR OF LOSS PREVENTION Population Health Navigator [email or web address] documented in this encounter Plan of Treatment Upcoming Encounters Date Type Department Care Team (Late st Contact Info) Description 07/17/2025 8:45 AM EST Clinical Support [facility] Transplant Center [address] [place] [address] 07/17/2025 10:30 AM EST Office Visit [facility] Transplant [place] [address] [place] [address] Nj Johns MD [address] [facility] [facility] [address] [place] [address] documented as of this encounter Visit Diagnoses [...] as of this encounter Care Teams Quality Control Assistant Relationship Specialty Start Date End Date Trevor Rolon DO [address] [facility] [address] [place] [address] PCP - General 11/22/20 06/03/25 Mc Grant [address] [facility] [address] [place] [address] Referring Physician Gastroenterology 02/21/24 El Agarwal APRN 37751 Referring Physician Gastroenterology 03/21/25 documented as of this encounter
--- OUTSIDE RECORDS SUMMARY | 2025-07-07 18:58 | XMS_ITS | Encounter Summary ---
Author Organization [facility] Address [address] [place] [address] Care Team Providers Care Roofing Superintendent Name Role Phone Trevor Rolon DO Primary Care Provider [phone] Mc Grant Unavailable [phone] El Agarwal APRN Unavailable [phone] Encounter Details Date Type Department Care Team (Latest Contact Info) Description 05/25/2025 Travel Social History Tobacco Use Types Packs/Day [...] time in the past 12 m [facility], were you homeless or living in a nursing home (including now)? No 05/25/2025 [facility] Utilities Answer Date Recorded In the [...] EST Clinical Support [facility] [place] [address] [place] [address] 07/17/2025 10:30 AM EST Office Visit [facility] [place] [address] [place] [address] Nj Johns MD [address] [place] [address] documented as of this encounter Visit Diagnoses Not on filedocumented in this encounter Additional Health Concerns Infection Onset Date Last Indicated Resolved Time Gastrointestinal Rule-Out 05/25/2025 05/25/2025 7:50 PM EST Assessment Noted Time PHQ-9 Depression Total Score: 18 025 7:06 AM EDT A fall risk assessment has been complete d for the patient 05/22/2025 12:43 PM EST A Body Mass Index follow-up plan has been documented for the patient 05/31/2025 1:22 PM EST documented as of this encounter Care Teams Roofing Superintendent Relationship Specialty Start Date End Date Trevor Rolon DO [address] [facility] [address] [place] [address] PCP - General 11/22/20 06/03/25 Mc Grant [address] [facility] [address] [place] [address] Referring Physician Gastroenterology 02/21/24 El Agarwal APRN [id number] Referring Physician Gastroenterology 03/21/25 documented as of this encounter
--- OUTSIDE RECORDS SUMMARY | 2025-07-07 18:58 | XMS_ITS | Encounter Summary ---
Author Organization [facility] Address [address] [place] [address] Care Team Providers Care Dish Room Worker Name Role Phone Trevor Rolon DO Primary Care Provider [phone] Mc Grant Unavailable [phone] El Agarwal APRN Unavailable Cely Diaz RN Unavailable Unavailable Encounter Details Date Type Department Care Team (Late st Contact Info) Description 05/23/2025 Orders Only External Location [address] [place] [address] Provider, External Social History Tobacco Use Types [...] any time in the past 12 m [facility], were you homeless or living in a prison (including now)? No 05/28/2025 [facility] Utilities Answer Date Recorded In the past [...] Description 07/17/2025 8:45 AM EST Clinical Support [facility] [place] [address] [place] [address] 07/17/2025 10:30 AM EST Office Visit [facility] [address] [place] [address] Nj Johns MD [address] [place] [address] documented as of this encounter Procedures Procedure Name Priority Date/Time Associated Diagnosis Comments XR OUTSIDE IMAGES 05/23/2025 11:57 PM EST documented in this encounter Results * XR OUTSIDE IMAGES (05/23/2025 11:57 PM EST) Anatomical Region Laterality Modality Radiographic Zayda ging 05/23/2025 11:5 7 PM EST us External Provider IMG XR PROCEDURES Edited Resul t - Final documented [...] documented as of this encounter Care Teams Dish Room Worker Relationship Specialty Start Date End Date Trevor Rolon DO [address] [facility] [address] [place] [address] PCP - General 11/22/20 06/03/25 Mc Grant [address] [facility] [address] [place] [address] Referring Physician Gastroenterology 02/21/24 lE Agarwal APRN [id number] Referring Physician Gastroenterology 03/21/25 Cely Diaz, CORWIN VALUE-BASED TRANSFORMATION PROGRAM [place], [place] Senior Sales Manager 05/28/25 documented as of this encounter
--- OUTSIDE RECORDS SUMMARY | 2025-07-07 18:58 | XMS_ITS | Encounter Summary ---
Author Organization [facility] Address [address] [place] [address] Care Team Providers Care Natural Gas Treating Unit Operator Name Role Phone Trevor Rolon DO Primary Care Provider [phone] Mc Grant Unavailable [phone] El Agarwal APRN Unavailable [phone] Cely Diaz RN Unavailable Unavailable Encounter Details Date Type Department Care Team (Latest Contact Info) Description 05/28/2025 Travel Social History Tobacco Use Types Packs/Day [...] in the past 12 m [facility], were you homeless or living in a long-term (including now)? No 05/28/2025 [facility] Utilities Answer Date Recorded In the past [...] EST Clinical Support [facility] [place] [address] [place] [address] 07/17/2025 10:30 AM EST Office Visit [facility] [place] [address] [place] [address] Nj Johns MD [address] [facility] [address] [place] [address] documented as of this encounter Visit Diagnoses [...] documented as of this encounter Care Teams Natural Gas Treating Unit Operator Relationship Specialty Start Date End Date Trevor Rolon DO [address] [facility] [address] [place] [address] PCP - General 11/22/20 06/03/25 Mc Grant [address] [facility] [address] [place] [address] Referring Physician Gastroenterology 02/21/24 El Agarwal APRN [id number] Referring Physician Gastroenterology 03/21/25 Cely Diaz, RN VALUE-BASED TRANSFORMATION PROGRAM [place] Telephone Operator 05/28/25 documented as of this encounter
--- OUTSIDE RECORDS SUMMARY | 2025-07-07 18:58 | XMS_ITS ---
Author Organization [facility] Address [address] [place] [address] Care Team Providers Care Turf Keeper Name Role Phone Mc Grant Unavailable [phone] El Agarwal APRN Unavailable [phone] Cely Diaz RN Unavailable Unavailable Jesus Luis MD Primary Care Provider [phone] High Risk Care Management Status:Active (Active) Program category:Care Coordination Start date:05/28/2025 Enrollment date:06/04/2025 Enrollment reason:Identified using referral data Case Team Name Relationship Phone Cely Diaz RN(Responsible Staff) Care Manag er Continued Care and Services Coordination
--- OUTSIDE RECORDS SUMMARY | 2025-07-07 18:59 | XMS_ITS | Encounter Summary ---
Author Organization [facility] Address [address] [place] [address] Care Team Providers Care Soil Technologist Name Role Phone Trevor Rolon DO Primary Care Provider Lucy Christopher DO Unavailable Encounter Details Date Type Department Care Team (Late st Contact Info) Description 07/20/2022 Orders Only [facility] [address] 2nd [place] [address] Laquita Woods PA [address] [place] [address] Social History Tobacco Use [...] do you attend up health system or taoist services? More than 4 times [...] Ohara Dressing Independent 07/23/2022 5:29 PM EST Oahra , Michelle Grooming Independent 07/23/2022 5:29 PM EST Donna Oharaela Feeding Independent 07/23/2022 5:29 PM EST Ohara , Michelle Bathing Independent 07/23/2022 5:29 PM EST Michelle Ohara Toileting Independent 07/23/2022 5:29 PM Michelle Oor In/Out Bed Independent 07/23/2022 5:29 PM Michelle [...] 2 07/23/2022 5:29 PM E Michelle Benoit OBSTETRICAL ANESTHESIOLOGIST Evaluation Needed 2 07/23/2022 5:29 PM Michelle [...] Description 08/16/2025 10:00 AM EST Office Visit [facility] [address] [place] [address] Brigitte Mahnoey NP [address] [place] [address] 09/18/2025 1:30 PM EDT Office Visit [facility] [address] [place] [address] Suman Treviño MD [address] [place] [address] 12/13/2025 1:15 PM EDT Office Visit [facility] [address] 7[address] [place] [address] Janice Woodward NP [address] [place] [facility] documented as of this encounter Visit Diagnoses Not on filedocumented in this encounter Care Teams Soil Technologist Relationship Specialty Start Date End Date Trevor Rolon DO [address] [facility] [address] [place] [address] PCP - General Lucy Christopher DO [address] [place] [id number] Consulting Physician Oncology 10/17/24 documented as of this encounter
--- OUTSIDE RECORDS SUMMARY | 2025-07-07 18:59 | XMS_ITS | Encounter Summary ---
Author Organization [facility] Address [address] [place] [address] Care Team Providers Care Side Splitter Name Role Phone Trevor Rolon DO Primary Care Provider [phone] Mc Grant Unavailable [phone] El Agarwal APRN Unavailable [phone] Cely Diaz RN Unavailable Unavailable Reason for Referral * Consultation (Routine) - Authorized Specialty Diagnoses / Procedures Referred By Truong t Referred To Contact Diagnoses Encounter for support and coordination of transition of care Alison Burns MD [address] [place] [address] Phone: tel: fax: [place] [address], [address] [place] [address] Phone: tel: Referral ID Status Reason Start Date Expiration Date Visits Requested Visits Authorized [id number] Authorized Other Co-Managemen t of Problem 5 11/27/2026 1 1 Scheduling Instructions Pt recently moved in with sister to [place]. Encounter Details Date Type Department Care Team ([facility] st Contact Info) Description 05/28/2025 Patient Outreach [facility] [address], [address] [place] [address] Michael DeL a Vega Social History Tobacco Use Types Packs/Day Years [...] any time in the past 12 m [facility], were you homeless or living in a fpc (including now)? No 05/28/2025 [facility] Utilities Answer Date Recorded In the past [...] on file documented as of this encounter Mental Status * Food Insecurity Concern Calculation Answer Entry Date Author 1 05/28/2025 3:14 PM EST Luann De La Vega * Housing Stability Concern Calculation Answer Entry Date Author 0 05/28/2025 3:15 PM Luann Ontiveros documented in this encounter Miscellaneous Notes * Progress Notes - Michael De La Vega - 05/28/2025 3:09 PM EST Pop Health Enrollment 05/28/2025 Pop Health Program: [] LINK [x] [facility] Primary Facility: [] Tristan [x] Cedric Sweeney [x] [facility] [x] Spoke with patient/caregiver [] PCP [x] Est care visit scheduled in [place] , date and provider unknown [x] Confirmed/Updated Patient's Contact Information, Voicemail, Preferred Method SDOH Needs/Assessment [] Transportation [] Food [] Housing [] Utility [x] Medication [x] Health Education [] Insurance [] Legal [] Unable to assess Discussion Summary: Population Health CHW met with pt bedside for introductions and review of the Pop[facility] programs. Pt was agreeable to [facility] enrollment. Pt verified contact info. Pt stated Trevor Rolon is patients old PCP from [facility]. Patient has an establishing care visit scheduled in [place]. Pt stated SDOH concerns arose when patient resided alone, pt is now living with sister in [place], [place] and hasno SDOH concerns; CHW updated social drivers. [facility] CHW provided card for f/u questions. Discharge Disposition [] Sub-Acute Rehab [x] Home [] Other: HUONG Cotton Population Health Navigator [email or web address] documented in this encounter Plan of Treatment Upcoming Encounters Date Type Department Care Team (Late st Contact Info) Description 07/17/2025 8:45 AM EST Clinical Support [facility] [address] [place] [address] 07/17/2025 10:30 AM EST Office Visit [facility] [place] [address] [place] [address] Nj Johns MD [address] [place] [address] Scheduled Referrals Name Type Priority Associated Diagnoses Orde r Schedule Ambulatory referral to [facility] Outpatient Referral Routine Encounter for support and coordination of transition of care 1 Occurrences starting 05/28/2025 until 11/29/2026 documented as of this encounter Visit Diagnoses Diagnosis Encounter for support and coordination of transition of care- Primary documented in this encounter Additional Health Concerns Assessment Noted Time PHQ-9 Depression Total Score: 18 025 7:06 AM EDT A fall risk assessment has been complete d for the patient 05/22/2025 12:43 PM EST A Body Mass Index follow-up plan has been documented for the patient 05/31/2025 1:22 PM EST documented as of this encounter Care Teams Side Splitter Relationship Specialty Start Date End Date Trevor Rolon DO [address] [facility] [address] [place] [address] PCP - General 11/22/20 06/03/25 Mc Grant [address] [facility] [address] [place] [address] Referring Physician Gastroenterology 02/21/24 El Agarwal APRN [id number] Referring Physician Gastroenterology 03/21/25 Cely Diaz RN VALUE-BASED TRANSFORMATION PROGRAM [place] Residential Energy Auditor 05/28/25 documented as of this encounter
--- OUTSIDE RECORDS SUMMARY | 2025-07-07 18:59 | XMS_ITS | Encounter Summary ---
Author Organization [facility] Address [address] [place] [address] Care Team Providers Care Rice Farmer Name Role Phone Trevor Rolon DO Primary Care Provider [phone] Mc Grant Unavailable [phone] El Agarwal APRN Unavailable [phone] Cely Diaz RN Unavailable Unavailable Reason for Visit * Reason Comments HRCM Encounter Details Date Type Department Care Team (Late st Contact Info) Description 05/28/2025 Patient Outreach [facility] [address] [facility] [place] [address] Cely Diaz, RN VALUE-BASED TRANSFORMATION PROGRAM [facility] Social History Tobacco Use Types Packs/Day Years [...] any time in the past 12 m [facility], were you homeless or living in a group home (including now)? No 05/28/2025 [facility] Utilities Answer Date Recorded In the past 12 months has th e [employer], gas, oil, or water [employer] threatened to shut off services in your home? No 05/25/2025 Comments Unknown Sex and Gender Information Value Date Recorded Sex Assigned at Female 03/11/2021 7:37 PM EDT Legal Sex Female 8:49 PM EDT Gender Identity Female 03/11/2021 7:37 PM EDT Sexual Orientation Not on file documented as of this encounter Mental Status * Pop Health Reason For Visit Assessment Group Question Answer Entry Date Author Outreach Reason Program Enrollment/Intake 05/28/2025 3:37 PM Cely Pitt RN Pop Health Reason For Encounter HRCM 05/28/2025 3:37 PM EST Cely Diaz RN documented in this encounter Miscellaneous Notes * Progress Notes - Cely Diaz RN - 05/28/2025 3:37 PM EST HRCM referral Identified Phone outreach to patient following hospital discharge documented in this encounter Plan of Treatment Upcoming Encounters Date Type Department Care Team (Late st Contact Info) Description 07/17/2025 8:45 AM EST Clinical Support [facility] [place] [address] [facility] [address] [place] [address] 07/17/2025 10:30 AM EST Office Visit [facility] [place] [address] [place] [address] Nj Johns MD [address] [facility] [address] [place] [address] documented as of this encounter Visit Diagnoses [...] documented as of this encounter Care Teams Rice Farmer Relationship Specialty Start Date End Date Trevor Rolon DO [address] [facility] [address] [place] [address] PCP - General 11/22/20 06/03/25 Mc Grant [address] [facility] [address] [place] [address] Referring Physician Gastroenterology 02/21/24 El Agarwal APRN [id number] Referring Physician Gastroenterology 03/21/25 Cely Diaz, CORWIN VALUE-BASED TRANSFORMATION PROGRAM [place], [place] Self Storage Manager 05/28/25 documented as of this encounter
--- OUTSIDE RECORDS SUMMARY | 2025-07-07 19:00 | XMS_ITS | Encounter Summary ---
Author Organization [facility] Address [address] [place] [address] Care Team Providers Care Knowledge Management Advisor Name Role Phone Mc Grant Unavailable [phone] El Agarwal APRN Unavailable [phone] Cely Diaz RN Unavailable Unavailable Jesus Luis MD Primary Care Provider [phone] Reason for Visit * Reason Comments TCM Encounter Details Date Type Department Care Team (Late st Contact Info) Description 07/03/2025 Patient Outreach [facility] [address] [facility] [place] [address] Alicia Vyas RN None None TCM Social History Tobacco Use Types Packs/Day Years [...] were you homeless or living in a mcc (including now)? No 06/26/2025 [facility] Utilities Answer Date Recorded In the past 12 months has th e [employer], gas, oil, or water company threatened to shut off services in your home? No 06/26/2025 Comments Unknown Sex and Gender Information Value Date Recorded Sex Assigned at Female 03/11/2021 7:37 PM EDT Legal Sex Female 8:49 PM EDT Gender Identity Female 03/11/2021 7:37 PM EDT Sexual Orientation Not on file documented as of this encounter Functional Status * Engagement Question Answer Date of Assessment Author Is the patient eligible? Yes 07/04/2025 1:24 PM Alicia Del Rio RN Call Start Time [id number] 07/04/2025 1:24 PM Alicia Rogel RN * Medications Question Answer Date of Assessment Author Medications reviewed with patient/caregiver? Yes 07/04/2025 1:24 PM Alicia Del Rio RN Is the patient having any side effects they believe may be caused by any medication additions or changes? No 07/04/2025 1:24 PM Alicia Del Rio RN Does the patient have all medications ordered at discharge? Yes 07/04/2025 1:24 PM Alicia Del Rio RN Nursing Interventions No intervention needed 1:24 PM Alicia Del Rio RN Is the patient taking all medications as directed (includes completed medication regime)? Yes 07/04/2025 1:24 PM Alicia Del Rio RN Nursing Interventions Nurse provided pat ient education 07/04/2025 1:24 PM Alicia Del Rio RN * Appointments Question Answer Date of Assessment Author Does the patient have a primary care provider? Yes 07/04/2025 1:24 PM Alicia Del Rio RN Does the patient have an appointment with their PCP within 7 days of discharge? Greater than 7 days 07/04/2025 1:24 PM Alicia Del Rio RN What is preventing the patient from scheduling follow up appointments within 7 days of discharge? Earlier appointment not available 07/04/2025 1:24 PM Alicia Del Rio RN Nursing Interventions Educated patient o n importance of making appointment;Advised patient to make appointment 07/04/2025 1:24 PM Alicia Del Rio RN Has the patient kept scheduled appointments due by today? Yes 07/04/2025 1:24 PM Alicia Del Rio RN Nursing Interventions Advised patient to keep appointment 07/04/2025 1:24 PM Alicia Del Rio RN * Self Management Question Answer Date of Assessment Author Has home health visited the patient within 72 hours of discharge? Not applicable 07/04/2025 1:24 PM Alicia Del Rio RN Are there psychosocial issues? No 07/04/2025 1:24 PM Alicia Del Rio RN * Patient Teaching Question Answer Date of Assessment Author Did the patient receive a copy of their discharge instructions? Yes 07/04/2025 1:24 PM Alicia Del Rio RN Nursing Interventions Reviewed instructi ons with patient 07/04/2025 1:24 PM Alicia Del Rio RN What is the patient's perception of their health status since discharge? Same 07/04/2025 1:24 PM Alicia Del Rio RN Is the patient/caregiver able to teach back signs and symptoms related to disease process for when to call PCP? Yes 07/04/2025 1:24 PM Alicia Del Rio RN Is the patient/caregiver able to teach back signs and symptoms related to disease process for when to call 911? Yes 07/04/2025 1:24 PM Alicia Del Rio RN Is the patient/caregiver able to teach back the hierarchy of who to call/visit for symptoms/problems? PCP, Specialist, Home Health nurse, Urgent Care, ED, 911 Yes 07/04/2025 1:24 PM Alicia Del Rio RN * Wrap Up Question Answer Date of Assessment Author Call completed? Yes 07/04/2025 1:24 PM Alicia Rogel RN Call End Time [id number] 07/04/2025 1:24 PM Alicia Rojas RN Does the patient have an Adv ance Directive or Living Will? No 07/04/2025 1:24 PM Zacarias Del Rio RN Is the patient/caregiver zana gaitan with Advance Care Planning? No 07/04/2025 1:24 PM Alicia Del Rio RN Would the patient like more information on Advance Care Planning? No 07/04/2025 1:24 PM Alicia Del Rio RN Did the patient feel the fol low up calls were helpful during their recovery period? Yes 07/04/2025 1:24 PM Alicia Del Rio RN documented as of this encounter Mental Status * Pop Health Reason For Visit Assessment Group Question Answer Entry Date Author Outreach Reason Program Enrollment/Intake 07/03/2025 3:06 PM Alicia Del Rio RN Pop Health Reason For Encounter [facility] 07/03/2025 3:06 PM EST Alicia Vyas RN documented in this encounter Miscellaneous Notes * Progress Notes - Alicia Vyas RN - 07/03/2025 3:06 PM EST Admit Date: 06/25 Discharge Date: 07/02 Hospital Service: Medicine Discharge Diagnosis: KENDRA 07/03/2025 TCM call # 1 Patient Reached: No Outcome: UTR Action: No Vmail Medication changes: n/a SHON appointment: n/a Items to address at SHON: n/a 07/04/2025 TCM call # 2 Patient Reached: Yes Outcome: Patient reports she is doing well. Completed assessment. Action: Reviewed post dc needs. She reports of having a visit with PCP in early Jul and that is thesoonest and had already been scheduled prior. She has family for support at this time as well. She reports of doing daily weights and watching fluid intake. She also reports of working with case managing with charlene. Also reviewed: Diet recommendations -please continue fluid restriction < 1800 ml/day -please continue high protein diet ( at least 115 gm/day ) -please continue less than 2 gm solidum diet. Medication changes: stop taking lisinopril. decrease taking metoprolol to 25 mg daily. [...] extra spironolactone 100 mg at 3 pm. SHON appointment: July per patient. Items to address at SHON: -follow up with your PCP and GI clinic as scheduled. -please recheck labs at your local place next week Wednesday. documented in this encounter Plan of Treatment Upcoming Encounters Date Type Department Care Team (Late st Contact Info) Description 07/17/2025 8:45 AM EST Clinical Support [facility] [address] [place] [address] 07/17/2025 10:30 AM EST Office Visit [facility] [place] [address] [place] [address] Nj Johns MD [address] [place] [address] documented as of this encounter [...] RN Patient to follow-up with medication assistance program,[facility] Care Plan Med Adherence Not on track( 3:04 PM EST) No Cely Diaz RN documented as of this encounter Visit Diagnoses Not on filedocumented in this encounter Additional Health Concerns Active [...] documented as of this encounter Care Teams Knowledge Management Advisor Relationship Specialty [place] [id number] PCP - General 06/04/25 Mc Grant Referring Physician Gastroenterology 02/21/24 El Agarwal APRN [id number] Referring Physician Gastroenterology 03/21/25 Cely Diaz, RN VALUE-BASED TRANSFORMATION PROGRAM [place] Cement Crusher Operator 05/28/25 documented as of this encounter
--- OUTSIDE RECORDS SUMMARY | 2025-07-07 19:00 | XMS_ITS | Encounter Summary ---
Author Organization [facility] Address [address] [place] [address] Care Team Providers Care Grinder Operator External Tool Name Role Phone Mc Grant Unavailable [phone] El Agarwal APRN Unavailable [phone] Cely Diaz RN Unavailable Unavailable Jesus Luis MD Primary Care Provider + [phone] Encounter Details Date Type Department Care Team (Latest Contact Info) Description 06/25/2025 Travel Social History Tobacco Use Types Packs/Day [...] in a senior living (including now)? No 06/26/2025 [facility] Utilities Answer Date Recorded In the [...] someone who was sick? No / Unsure 06/25/2025 4:46 PM Ale Gutierrez Do you have any of the follo wing new or worsening symptoms? None of these 06/25/2025 4:46 PM Bela Guiterrez * Travel Screening Question Answer Date of Assessment Author Have you traveled internatio rachel or domestically in the last month? No 06/25/2025 4:46 PM EST Ale Wyatt documented as of this encounter Mental Status * Communicable Disease Screening Question Answer Entry Date Author Have you been in contact wit h someone who was sick? No / Unsure 06/25/2025 4:46 PM EST Ale Cox Do you have any of the follo wing new or worsening symptoms? None of these 06/25/2025 4:46 PM EST Bela Cox * Travel Screening Question Answer Entry Date Author Have you traveled internatio rachel or domestically in the last month? No 06/25/2025 4:46 PM EST Ale Wyatt documented in this encounter Plan of Treatment Upcoming Encounters Date Type Department Care Team (Late st Contact Info) Description 07/17/2025 8:45 AM EST Clinical Support [facility] [address] [place] [address] 07/17/2025 10:30 AM EST Office Visit [facility] [address] [place] [address] Nj Johns MD [address] [place] [address] documented as of this encounter Goals Goal [...] Not on track( 3:04 PM EST) No Iglehart, Cely J, RN Patient to follow-up with medication assistance program[facility] RX Care Plan Med Adherence Not on track( 025 3:04 PM EST) No Cely Diaz RN [...] documented as of this encounter Care Teams Grinder Operator External Tool Relationship Specialty [place] [id number] PCP - General 06/04/25 Mc Grant Referring Physician Gastroenterology 02/21/24 El Agarwal APRN [id number] Referring Physician Gastroenterology 03/21/25 Cely Diaz, RN VALUE-BASED TRANSFORMATION PROGRAM [place] Flatwork Ironer 05/28/25 documented as of this encounter
--- OUTSIDE RECORDS SUMMARY | 2025-07-07 19:00 | XMS_ITS | Encounter Summary ---
Author Organization [facility] Address [address] [place] [address] Care Team Providers Care Territory Sales Executive Name Role Phone Mc Grant Unavailable [phone] El Agarwal APRN Unavailable [phone] Cely Diaz RN Unavailable Unavailable Jesus Luis MD Primary Care Provider + [phone] Reason for Visit * Reason Comments HRCM Encounter Details Date Type Department Care Team (Late st Contact Info) Description 06/04/2025 Patient Outreach POPULATION HEALTH [address] [facility], [address] [place] [address] Cely Diaz, RN VALUE-BASED TRANSFORMATION PROGRAM [facility] Social History Tobacco Use Types [...] living in a long-term (including now)? No 06/04/2025 [facility] Utilities Answer Date Recorded In the past 12 months has th e [employer], gas, oil, or water [employer] threatened to shut off services in your home? No 06/04/2025 Comments Unknown Sex and Gender Information Value Date Recorded Sex Assigned at Female 03/11/2021 7:37 PM EDT Legal Sex Female 8:49 PM EDT Gender Identity Female 03/11/2021 7:37 PM EDT Sexual Orientation Not on file documented as of this encounter Functional Status * Medications Question Answer Date of Assessment Author Medication reconciled? Yes 06/04/2025 2:45 PM Cely Pitt RN Trouble getting and/or payin g for medications? Yes 06/04/2025 2:45 PM Cely Pitt RN Understands why medications are taken? Yes 06/04/2025 2:45 PM Cely Pitt RN Understands how medications are taken? Yes 06/04/2025 2:45 PM Cely Pitt RN * Physical Challenges Question Answer Date of Assessment Author Supportive Equipment Rollator;Other (comment) 06/04/2025 2:45 PM Cely Pitt RN * Other Question Answer Date of Assessment Author Senior Product Marketing Manager needed No 06/04/2025 2:45 PM Cely Pitt RN * Patients can perform the following activities without help: Question Answer Date of Assessment Author Dressing Yes 06/04/2025 2:46 PM Cely Ricks RN Bathing Yes 06/04/2025 2:46 PM Cely Ricks RN Doing laundry No 06/04/2025 2:46 PM Cely Castellon RN Climbing a flight of stairs No 06/04/2025 2: 46 PM Cely Pitt RN Walking briskly No 06/04/2025 2:46 PM Cely Liz RN Moderate exercise No 06/04/2025 2:46 PM Cely Pitt RN * Engagement Question Answer Date of Assessment Author Is the patient eligible? Yes 06/04/2025 2:39 PM Cely Pitt RN Call Start Time [id number] 06/04/2025 2:39 PM Cely Liz RN * Medications Question Answer Date of Assessment Author Medications reviewed with patient/caregiver? Yes 06/04/2025 2:39 PM Cely Pitt RN Is the patient having any si de effects they believe may be caused by any medication additions or changes? No 06/04/2025 2:39 PM Cely Pitt RN Does the patient have all medications ordered at discharge? No 06/04/2025 2:39 PM Cely Briones RN Is the patient taking all medications as directed (includes completed medication regime)? Yes 06/04/2025 2:39 PM Cely Holguin RN * Appointments Question Answer Date of Assessment Author Does the patient have a [facility] care provider? Yes 06/04/2025 2:39 PM Cely Pitt RN Does the patient have an appointment with their PCP within 7 days of discharge? Yes 06/04/2025 2:39 PM Cely Pitt RN * Self Management Question Answer Date of Assessment Author What Durable Medical Equipment (DME) was ordered? Rollator, Shower chair- available at home 06/04/2025 2:39 PM Cely Pitt RN Has home health visited the patient within 72 hours of discharge? Not applicable 06/04/2025 2:39 PM Cely Pitt RN Has all Durable Medical Equipment (DME) been delivered? Yes 06/04/2025 2:39 PM Cely Pitt RN Are there psychosocial issues? No 06/04/2025 2:39 PM Cely Pitt RN * Patient Teaching Question Answer Date of Assessment Author Did the patient receive a copy of their discharge instructions? Yes 06/04/2025 2:39 PM Cely Pitt RN Nursing Interventions Reviewed instructi ons with patient 06/04/2025 2:39 PM Cely Pitt RN What is the patient's perception of their health status since discharge? Improving 06/04/2025 2:39 PM Cely Pitt RN Is the patient/caregiver able to teach back signs and symptoms related to disease process for when to call PCP? Yes 06/04/2025 2:39 PM Cely Pitt RN Is the patient/caregiver able to teach back signs and symptoms related to disease process for when to call 911? Yes 06/04/2025 2:39 PM Cely Pitt RN Is the patient/caregiver able to teach back the hierarchy of who to call/visit for symptoms/problems? PCP, Specialist, Home Health nurse, Urgent Care, ED, 911 Yes 06/04/2025 2:39 PM Cely Pitt RN * Wrap Up Question Answer Date of Assessment Author Call completed? Yes 06/04/2025 2:39 PM Cely Liz RN Call End Time [id number] 06/04/2025 2:39 PM Cely Castellon RN * Medications Question Answer Date of Assessment Author Medication reconciled? Yes 06/04/2025 2:45 PM Cely Pitt RN Trouble getting and/or payin g for medications? Yes 06/04/2025 2:45 PM Cely Pitt RN Understands why medications are taken? Yes 06/04/2025 2:45 PM Cely Pitt RN Understands how medications are taken? Yes 06/04/2025 2:45 PM Cely Pitt RN * Physical Challenges Question Answer Date of Assessment Author Supportive Equipment Rollator;Other (comment) 06/04/2025 2:45 PM Cely Pitt RN * Other Question Answer Date of Assessment Author Senior Product Marketing Manager needed No 06/04/2025 2:45 PM Cely Pitt RN * Patients can perform the following activities without help: Question Answer Date of Assessment Author Dressing Yes 06/04/2025 2:46 PM Cely Ricks RN Bathing Yes 06/04/2025 2:46 PM Cely Ricks RN Doing laundry No 06/04/2025 2:46 PM Cely Castellon RN Climbing a flight of stairs No 06/04/2025 2: 46 PM Cely Pitt RN Walking briskly No 06/04/2025 2:46 PM Cely Liz RN Moderate exercise No 06/04/2025 2:46 PM Cley Pitt RN * Learning Needs Screening Question Answer Date of Assessment Author Are there things (barriers) that make it harder for this patient to learn? No Barriers 06/04/2025 2:46 PM Cely Pitt RN What is the best language to use for teaching this patient about his/her health? Albanian 06/04/2025 2:46 PM Cely Pitt RN What format does this patient think is most helpful for learning? Listening;Reading;Dem onstration;Pictures/V ideo 06/04/2025 2:46 PM Cely Pitt RN Primary Learner Patient 06/04/2025 2:46 PM Cely Liz RN * Readiness to Learn Question Answer Date of Assessment Author Readiness Eager 06/04/2025 2:46 PM Cely Ricks RN documented as of this encounter Mental Status * Medications Question Answer Entry Date Author Medication reconciled? Yes 06/04/2025 2:45 PM Cely Pitt RN Trouble getting and/or payin g for medications? Yes 06/04/2025 2:45 PM Cely Pitt RN Understands why medications are taken? Yes 06/04/2025 2:45 PM Cely Pitt RN Understands how medications are taken? Yes 06/04/2025 2:45 PM Cely Pitt RN * Physical Challenges Question Answer Entry Date Author Supportive Equipment Rollator;Other (comment) 06/04/2025 2:45 PM Cely Pitt RN * Other Question Answer Entry Date Author Senior Product Marketing Manager needed No 06/04/2025 2:45 PM Cely Pitt RN * HARK Concern Calculation Answer Entry Date Author 1 06/04/2025 2:44 PM Cely Pitt RN * Food Insecurity Concern Calculation Answer Entry Date Author 1 06/04/2025 2:44 PM Cely Pitt RN * Transportation Needs Concern Calculation Answer Entry Date Author 1 06/04/2025 2:44 PM Cely Pitt RN * Housing Stability Concern Calculation Answer Entry Date Author 3 06/04/2025 2:44 PM Cely Pitt RN * Utilities Concern Calculation Answer Entry Date Author 1 06/04/2025 2:44 PM Cely Pitt RN * Pop Health Reason For Visit Assessment Group Question Answer Entry Date Author Outreach Reason Program Enrollment/Intake 06/04/2025 1:39 PM Cely Pitt RN Pop Health Reason For Encounter [facility] 06/04/2025 1:39 PM EST Cely Diaz RN documented in this encounter Miscellaneous Notes * Progress Notes - Cely Diaz RN - 06/04/2025 1:39 PM EST Admit Date: 05/24/2025 Discharge Date: 05/31/2025 Hospital Service: Hospital Medicine Discharge Diagnosis: Sepsis secondary to E coli bacteremia, 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 Lives with sister- assists patient with ADL- [place] Home with daughter in [place] for the week Rollator walker, fall on day of d/c, no LOC, shower chair Daily weight [employer] Insurance CM since Aug - weight, BP , pulse ox, glucose----- 208, reg 165 Today 193.4 losing slowly Holding lantus Novalog SSI Will follow up with PCP for labs in 2 weeks- BMP- patient to call PCP for food service tray attendant - Transplant- called patient today. Patient needs Mammogram, scheduled 06/13/25- following results, then patient case will go to committee No driving- can't do outpatient PT- active at home, every 30 min doing laps in house. Keeping feet elevated Medication changes: Bumex 1 mg tablet- take 2 mg twice daily Magnesium 400 mg tablet- 1 tablet twice daily Continue short-acting insulin per sliding scale Hold Lantus insulin unless high glucose greater than 200. If high, resume 10 units daily Rifaximin 550 mg tablet- 1 tablet twice daily [facility] appointment: Non [facility] PCP: Jesus Luis MD- new PCP in [place] for patient. Updated in [employer]. Items to address at [facility]: Post Discharge Instructions Please increase taking bumex [...] GI and transplant clinic -outpatient physical therapy Future Appointments Date Time Provider Department Center 06/12/2025 2:30 PM Juana Gale APRN [facility] 06/13/2025 11:30 AM WHT MAMMO 1 MAMMIGNACIO [facility] 06/20/2025 10:30 AM Claire Davidson MD [facility] 06/21/2025 2:00 PM Claire Davidson MD [facility] PAC 07/17/2025 8:45 AM TRANSPLANT LAB [facility] 07/17/2025 10:30 AM Nj Johns MD [facility] 07/24/2025 1:00 PM Lesia Cervantes MD [id number] [facility] HRCM Enrollment 06/04/2025 HRCM Program Service: [x] Hospital medicine [] Family Medicine or [] Other PCP: [] Internal or [x] External Hospital Admission Info: Discharge Date: 05/31/2025 Primary Dx: Sepsis Secondary Dx: Ortiz cirrhosis Number of Admissions (last 6 Mos.): Outreach to Patient [x] Outreach 1: 06/04/2025 [x] Enrollment Date: 06/04/2025 Risk & Needs Assessment/Summaries Health Updates/Concerns: - Completed All Assessments: [x] Yes [] No Caregiver/Support System: Lives with sister in [place]. Previously from [place]- visiting daughter and grandchildren Medications: Access: Rifaximin- Medicaid does not cover. Patient in contact with medication assistance program through [facility] Rx Adherence: Taking medications as prescribed Tolerance/ Side Effects: Tolerating medications. No side effects SDOH SDOH Update: Care Gaps: [Health Maintenance] Patient-Centered Care Plan Patient???s Stated Goals (short- and long-term): Motivated for health improvement, to see children and grand kids grow up Nurse Navigator Goals (prevent readmission, medication optimization, connect to community resources): Planned Interventions [x] Frequency of outreach [x] phone follow-up [] Collaboration Needed: [] Pharmacy, [] FAP, [] LINK [] CHW [x] Education provided [x] Condition-specific [x] Red flag symptoms [x] When to call vs. when to go to ED [x] Care plan initiated. [x] Graduation Plan: 1-2 months Next Steps & Follow-Up Chronic Conditions & Preventive Needs [x] Chronic Condition Monitoring Summary: Pulmonary: LEROY Cardiac: HTN, PVD, CHF Digestive: Ortiz cirrhosis, GERD, gastroparesis Endocrine: Diabetes type 2 [x] Specialty Follow-Ups Needed: Cardiology Transplant Neurology Psychiatry Planned outreach Summary: Weekly X 4 Upcoming appointments Future Appointments Date Time Provider Department Center 06/12/2025 2:30 PM Juana Gale APRN [facility] 06/13/2025 11:30 AM CH WHT MAMMO 1 [id number] [facility] 06/20/2025 10:30 AM Claire Davidson MD [facility] 06/21/2025 2:00 PM Claire Davidson MD [facility] PAC 07/17/2025 8:45 AM TRANSPLANT LAB [facility] 07/17/2025 10:30 AM Nj Johns MD [facility] 07/24/2025 1:00 PM [id number] [[facility] Patient enrolled in [facility]. Cely Diaz RN Population Health Nurse documented in this encounter Plan of Treatment Upcoming Encounters Date Type Department Care Team (Late st Contact Info) Description 07/17/2025 8:45 AM EST Clinical Support [facility] [place] [address] [place] [address] 07/17/2025 10:30 AM EST Office Visit [facility] [place] [id number] [place] [address] Nj Johns MD [address] [facility] [address] [place] [address] documented as of this encounter Goals Goal [...] RN Patient to follow-up with medication assistance program,[facility] RX Care Plan Med Adherence Not on [...] documented as of this encounter Care Teams Territory Sales Executive Relationship Specialty [place] [id number] PCP - General 06/04/25 Mc Grant Referring Physician Gastroenterology 02/21/24 El Agarwal APRN [id number] Referring Physician Gastroenterology 03/21/25 Cely Diaz, RN VALUE-BASED TRANSFORMATION PROGRAM [place], [place] Manager Implementation 05/28/25 documented as of this encounter
--- OUTSIDE RECORDS SUMMARY | 2025-07-07 19:00 | XMS_ITS | Encounter Summary ---
Author Organization [facility] Address [address] [place] [address] Care Team Providers Care Materials Handling Equipment Operator Name Role Phone Mc Garnt Unavailable [phone] El Agarwal APRN Unavailable [phone] Cely Diaz RN Unavailable Unavailable Jesus Luis MD Primary Care Provider + [phone] Encounter Details Date Type Department Care Team (Late st Contact Info) Description 06/29/2025 Orders Only [facility] Infusion [address] [place] [id number] Cari Perry, PharmD None None Social History Tobacco Use Types Packs/Day [...] were you homeless or living in a longterm (including now)? No 06/26/2025 [facility] Utilities Answer Date Recorded In the past 12 months has th e [employer], gas, oil, or water [employer] threatened to shut off services in your [...] Description 07/17/2025 8:45 AM EST Clinical Support [facility] [address] [place] [address] 07/17/2025 10:30 AM EST Office Visit [facility] [address] [place] [address] Nj Johns MD [address] [place] [address] documented as of this encounter Goals Goal [...] RN Patient to follow-up with medication assistance program[facility] Care Plan Med Adherence Not [...] documented as of this encounter Care Teams Materials Handling Equipment Operator Relationship Specialty [place] [address] PCP - General 06/04/25 Mc Grant Referring Physician Gastroenterology 02/21/24 El Agarwal APRN [id number] Referring Physician Gastroenterology 03/21/25 Cely Diaz, CORWIN VALUE-BASED TRANSFORMATION PROGRAM [place], [place] Frozen Yogurt Maker 05/28/25 documented as of this encounter
--- OUTSIDE RECORDS SUMMARY | 2025-07-07 19:00 | XMS_ITS | Encounter Summary ---
Author Organization [facility] Address [address] [place] [address] Care Team Providers Care Dietary Aide Teacher Name Role Phone Mc Grant Unavailable [phone] El Agarwal APRN Unavailable [phone] Cely Diaz RN Unavailable Unavailable Jesus Luis MD Primary Care Provider + [phone] Encounter Details Date Type Department Care Team (Latest Contact Info) Description 06/26/2025 Travel Social History Tobacco Use Types Packs/Day [...] any time in the past 12 m [facility], were you homeless or living in a half-way (including now)? No 06/26/2025 [facility] Utilities Answer Date Recorded In the [...] Clinical Support [facility] Transplant [place] [address] [place] [address] 07/17/2025 10:30 AM EST Office Visit [facility] [place] [address] [place] [address] Nj Johns MD [address] [place] [address] documented as of this encounter [...] RN Patient to follow-up with medication assistance program,[facility] Care Plan Med Adherence Not on [...] documented as of this encounter Care Teams Dietary Aide Teacher Relationship Specialty [place] [address] PCP - General 06/04/25 Mc Grant Referring Physician Gastroenterology 02/21/24 El Agarwal APRN [id number] Referring Physician Gastroenterology 03/21/25 Cely Diaz, CORWIN VALUE-BASED TRANSFORMATION PROGRAM [place], [place] Road Equipment Operator 05/28/25 documented as of this encounter
--- OUTSIDE RECORDS SUMMARY | 2025-07-07 19:00 | XMS_ITS | Encounter Summary ---
Author Organization [facility] Address [address] [place] [address] Care Team Providers Care Director Of Compensation Name Role Phone Mc Grant Unavailable [phone] El Agarwal APRN Unavailable [phone] Cely Diaz RN Unavailable Unavailable Jesus Luis MD Primary Care Provider + [phone] Reason for Visit * Reason Onset Date Comments Is follow up/Emg still needed 06/13/2025 Encounter Details Date Type Department Care Team ([facility] Contact Info) Description 06/13/2025 Telephone [facility] [address] [facility], [address] [place] [address] Claire Davidson MD [address] [facility] [address] [place] [address] Is follow up/Emg still needed Social History Tobacco Use Types Packs/Day Years [...] in a nursing home (including now)? No 06/04/2025 [facility] Utilities Answer Date Recorded In [...] Telephone Encounter - Claire Davidson MD - 06/13/2025 9:14 AM EST That's correct, okay to cancel EMG and follow-up. Patient has follow-up with neurosurgery. Claire Davidson MD * Telephone Encounter - Aubrie Gonzalez - 06/13/2025 8:45 AM EST Patient called said that you stated that she may not need the EMG or the f/u appt. Please advise. documented in this encounter Plan of Treatment Upcoming Encounters Date Type Department Care Team (Late st Contact Info) Description 07/17/2025 8:45 AM EST Clinical Support [facility] [address] [place] [address] 07/17/2025 10:30 AM EST Office Visit [facility] [address] [place] [address] Nj Johns MD [address] [place] [address] documented as of this encounter Goals Goal [...] of this encounter Care Teams Director Of Compensation Relationship Specialty [place] [id number] PCP - General 06/04/25 Mc Grant Referring Physician Gastroenterology 02/21/24 El Agarwal APRN [id number] Referring Physician Gastroenterology 03/21/25 Cely Diaz RN VALUE-BASED TRANSFORMATION PROGRAM [place], [place] Coin Machine Supervisor 05/28/25 documented as of this encounter
--- OUTSIDE RECORDS SUMMARY | 2025-07-07 19:00 | XMS_ITS | Encounter Summary ---
Author Organization [facility] Address [address] [place] [address] Care Team Providers Care Instrument And Control Service Person Name Role Phone Mc Grant Unavailable [phone] El Agarwal APRN Unavailable +[phone] Cely Diaz RN Unavailable Unavailable Jesus Luis MD Primary Care Provider + [phone] Encounter Details Date Type Department Care Team (Late st Contact Info) Description 06/22/2025 Telephone [facility] [address] [facility] [address] [place] [address] Madyson Sarabia, RN [id number] [address] [place] [address] Social History Tobacco Use Types Packs/Day Years [...] any time in the past 12 m [facility], were you homeless or living in a penitentiary (including now)? No 06/04/2025 [facility] Utilities Answer Date Recorded In the past 12 months has th e [employer], gas, oil, or water company threatened to [...] Telephone Encounter - Madyson Sarabia RN - 06/22/2025 10:36 AM EST Rec;d vm from patient sister. Patient at [facility] ED as she gained 20lbs of fluid overnight. She had paracentesis last Wednesday and had 3 liters removed. I adv that patient may need weekly para, and suggested they have those set up. [place] able to get out today because of the snow and wanted to know ifwe can just adjust diuretics. Updated labs in chart, will review with NT to see if can make any adjustments to medications. documented in this encounter Plan of Treatment Upcoming Encounters Date Type Department Care Team (Late st Contact Info) Description 07/17/2025 8:45 AM EST Clinical Support [facility] [address] [place] [address] 07/17/2025 10:30 AM EST Office Visit [facility] [address] [place] [address] Nj Johns MD [address] [place] [address] documented as of this encounter Goals Goal [...] RN Patient to follow-up with medication assistance program,[facility] Care Plan Med Adherence Not on track( 025 3:04 PM EST) No Cely Diaz RN documented as of this encounter Procedures Procedure Name Priority Date/Time Associated Diagnosis Comments PROTHROMBIN TIME(PT) / INR Routine 06/21/2025 CBC W/O DIFFERENTIAL Routine 06/21/2025 COMPREHENSIVE METABOLIC PANEL, PLASMA Routine 06/21/2025 documented in this encounter Results * Comprehensive Metabolic Panel, Plasma (06/21/2025) External Glucose 135 External BUN 21 External Creatinine Blood 1.3 mg/dL External Sodium (Na) 134 mEq/L External Potassium (K) 4.3 External Chloride (Cl) 98 External Carbon Dioxide (CO2) 26 External Calcium (Ca) 8.8 External Total Protein 7.3 External Albumin 3.0 g/dL External AST (SGOT) 92 External ALT (SGPT) 59 External Alkaline Phosphatase 190 External Bilirubin Total 4.8 mg/dL Blood Venous blood specimen / Unknown 06/21/2025 Result [facility] Provider LAB BLOOD ORDERABLES Final R esult * CBC W/O Differential (06/21/2025) External WBC 8.7 External Red Blood Cell (RBC) 3.22 External Hemoglobin (Hgb) 11.70 External Hematocrit (Hct) 33.7 External Platelet Count (Plt) 95 Blood Venous blood specimen / Unknown 06/21/2025 [facility] Provider LAB BLOOD ORDERABLES Final R esult * Prothrombin Time/INR (06/21/2025) External Prothrombin Time (PT) 14.8 External INR - Internormal Ratio 1.36 Blood Venous blood specimen / Unknown 06/21/2025 [facility] Provider LAB BLOOD ORDERABLES Final R [...] documented as of this encounter Care Teams Instrument And Control Service Person Relationship Specialty [place] [address] PCP - General 06/04/25 Mc Grant Referring Physician Gastroenterology 02/21/24 El Agarwal APRN [id number] Referring Physician Gastroenterology 03/21/25 Cely Diaz, RN VALUE-BASED TRANSFORMATION PROGRAM [place], [place] Senior Business Manager 05/28/25 documented as of this encounter
--- OUTSIDE RECORDS SUMMARY | 2025-07-07 19:00 | XMS_ITS | Encounter Summary ---
Author Organization [facility] Address [address] [place] [address] Care Team Providers Care Tube Drawer Name Role Phone Mc Grant Unavailable [phone] El Agarwal APRN Unavailable [phone] Cely Diaz RN Unavailable Unavailable Jesus Luis MD Primary Care Provider + [phone] Encounter Details Date Type Department Care Team (Latest Contact Info) Description 06/24/2025 Travel Social History Tobacco Use Types Packs/Day [...] time in the past 12 m [facility], were you homeless or living in a assisted (including now)? No 06/04/2025 [facility] Utilities Answer Date Recorded In the past [...] someone who was sick? No / Unsure 06/24/2025 9:06 AM Jessica Toney Do you have any of the following new or worsening symptoms? None of these 06/24/2025 9:06 AM Jessica Toney * Travel Screening Question Answer Date of Assessment Author Have you traveled internatio rachel or domestically in the last month? No 06/24/2025 9:06 AM EST Mycha rt, Generic documented as of this encounter Mental Status * Communicable Disease Screening Question Answer Entry Date Author Have you been in contact wit h someone who was sick? No / Unsure 06/24/2025 9:06 AM EST Jessica Olvera Do you have any of the following new or worsening symptoms? None of these 06/24/2025 9:06 AM EST Jessica Olvera * Travel Screening Question Answer Entry Date Author Have you traveled internatio rachel or domestically in the last month? No 06/24/2025 9:06 AM EST Mycha rt, Generic documented in this encounter Plan of Treatment Upcoming Encounters Date Type Department Care Team (Late st Contact Info) Description 07/17/2025 8:45 AM EST Clinical Support [facility] [address] [place] [address] 07/17/2025 10:30 AM EST Office Visit [facility] [address] [place] [address] Nj Johns MD [address] [place] [address] documented as of this encounter Goals Goal [...] as of this encounter Care Teams Tube Drawer Relationship Specialty [place] [address] PCP - General 06/04/25 Mc Grant Referring Physician Gastroenterology 02/21/24 El Agarwal APRN [id number] Referring Physician Gastroenterology 03/21/25 Cely Diaz, RN VALUE-BASED TRANSFORMATION PROGRAM [place], [place] Vocational Placement Specialist 05/28/25 documented as of this encounter
--- OUTSIDE RECORDS SUMMARY | 2025-07-07 19:00 | XMS_ITS | Encounter Summary ---
Author Organization [facility] Address [address] [place] [address] Care Team Providers Care Drywall Carrier Name Role Phone Mc Grant Unavailable [phone] El Agarwal APRN Unavailable [phone] Cely Diaz RN Unavailable Unavailable Jesus Luis MD Primary Care Provider + [phone] Reason for Visit * Reason Comments HRCM Encounter Details Date Type Department Care Team (Late st Contact Info) Description 06/14/2025 Patient Outreach POPULATION [facility] [address] [facility] [place] [address] Cely Diaz, RN VALUE-BASED TRANSFORMATION PROGRAM [facility] Social History Tobacco Use Types Packs/Day Years [...] any time in the past [address] [facility], were you homeless or living in a correction (including now)? No 06/04/2025 [facility] Utilities Answer Date Recorded In the past 12 months has th e [employer], gas, oil, or water [email or web address] threatened to shut off services in your [...] Question Answer Entry Date Author Outreach Reason Follow-Up 06/14/2025 3:12 PM EST Cely Marquez RN [facility] Reason For Encounter HRCM 3:12 PM EST Cely Diaz RN documented in this encounter Miscellaneous Notes * Progress Notes - Cely Diaz, CORWIN - 06/14/2025 3:12 PM EST [facility] Outreach/Follow-Up Completed on: 06/14/2025 Called patient. No answer. Left message voicemail requesting return call. MCM sent to patient Appointments/Follow-Up Upcoming Appointments: Future Appointments Date Time Provider Department Center 07/17/2025 8:45 AM TRANSPLANT LAB [facility] 07/17/2025 10:30 AM Nj Johns MD [facility] 07/24/2025 1:00 PM Lesia Cervantes MD [id number] [facility] Next Steps: [] Continue Care/Follow-up Plan [x] Tasks set for F/U next week Cely Diaz RN Population Health Nurse EMR M*Modal Fluency Direct/Dishwashing Machine Repairer disclaimer: Parts of this note were dictated using M Modal Fluency Direct voice recognition software. As a result, errors may occur. When identified, these oil burner technician errors are corrected, but while every attempt is made to prevent/correct these, errors may still exist. Please do not hesitate to reach out to me for clarification. documented in this encounter Plan of Treatment Upcoming Encounters Date Type Department Care Team (Late st Contact Info) Description 07/17/2025 8:45 AM EST Clinical Support [facility] [place] [address] [place] [address] 07/17/2025 10:30 AM EST Office Visit [facility] [place] [address] [place] [address] Nj Johns MD [address] [place] [address] documented as of this encounter Goals Goal [...] RN Patient to follow-up with medication assistance program,[facility] RX Care Plan Med Adherence Not [...] documented as of this encounter Care Teams Drywall Carrier Relationship Specialty [place] [address] PCP - General 06/04/25 Mc Grant Referring Physician Gastroenterology 02/21/24 El Agarwal APRN [id number] Referring Physician Gastroenterology 03/21/25 Cely Diaz RN VALUE-BASED TRANSFORMATION PROGRAM [place], [place] Knowledge Architect 05/28/25 documented as of this encounter
--- OUTSIDE RECORDS SUMMARY | 2025-07-07 19:00 | XMS_ITS | Encounter Summary ---
Author Organization [facility] Address [address] [place] [address] Care Team Providers Care Cigarette Maker Name Role Phone Mc Grant Unavailable [phone] El Agarwal APRN Unavailable [phone] Cely Diaz RN Unavailable Unavailable Jesus Luis MD Primary Care Provider + [phone] Encounter Details Date Type Department Care Team (Late st Contact Info) Description 06/22/2025 Orders Only [facility] [address] [facility] [address] [place] [address] Nj Johns MD [address] [place] [address] End-stage liver disease (CMS/HCC) (Primary Dx); KENDRA (acute kidney injury); Hypervolemia, unspecified hypervolemia type Social History Tobacco Use Types Packs/Day [...] any time in the past 12 m [facility], were you homeless or living in a snf (including now)? No 06/04/2025 [facility] Utilities [...] Transplant Center [address] [place] [address] 07/17/2025 10:30 AM EST Office Visit [facility] [place] [address] [place] [address] Nj Johns MD [address] [place] [address] documented as of this encounter Goals Goal Patient Goal Type Associated Problems Recent Progress Patient-Stated? Author Patient will attend follow-up appointment with transplant Care Plan Appointments No Cely Diza RN Patient will monitor daily weights Care [...] RN Patient to follow-up with medication assistance program,[facility] Care Plan Med Adherence Not on track( 3:04 PM EST) Cely Patricia RN documented as of this encounter Visit Diagnoses Diagnosis End-stage liver disease (CMS/HCC)- Primary Other sequelae of chronic liver disease KENDRA (acute kidney injury) Hypervolemia, unspecified hypervolemia type documented in this encounter Additional Health Concerns Active Problems Noted Date Diagnosed Date Appointments 06/04/2025 Symptom management 06/04/2025 Med Adherence 06/04/2025 Assessment Noted Time PHQ-9 Depression Total Score: 18 09/23/2 025 7:06 AM EDT A fall risk assessment has been complete d for the patient 05/22/2025 12:43 PM EST A Body Mass Index follow-up plan has been documented for the patient 05/31/2025 1:22 PM EST documented as of this encounter Care Teams Cigarette Maker Relationship Specialty [place] [address] PCP - General 06/04/25 Mc Grant Referring Physician Gastroenterology 02/21/24 El Agarwal APRN [id number] Referring Physician Gastroenterology 03/21/25 Cely Diaz, RN VALUE-BASED TRANSFORMATION PROGRAM [place], [place] Assistant Track Coach 05/28/25 documented as of this encounter
--- OUTSIDE RECORDS SUMMARY | 2025-07-07 19:00 | XMS_ITS | Encounter Summary ---
Author Organization [facility] Address [address] [place] [address] Care Team Providers Care Ammonia Distiller Name Role Phone Mc Grant Unavailable [phone] El Agarwal APRN Unavailable [phone] Cely Diaz RN Unavailable Unavailable Jesus Luis MD Primary Care Provider + [phone] Encounter Details Date Type Department Care Team (Latest Contact Info) Description 06/27/2025 Travel Social History Tobacco Use Types Packs/Day [...] in a group home (including now)? No 06/26/2025 [facility] Utilities Answer Date Recorded In the [...] AM EST Clinical Support [facility] [place] [address] [place] [address] 07/17/2025 10:30 AM EST Office Visit [facility] [place] [address] [place] [address] Nj Johns MD [address] [place] [address] documented as of this encounter [...] RN Patient to follow-up with medication assistance program,[facility] Care Plan Med Adherence Not [...] documented as of this encounter Care Teams Ammonia Distiller Relationship Specialty [place] [address] PCP - General 06/04/25 Mc Grant Referring Physician Gastroenterology 02/21/24 El Agarwal APRN [id number] Referring Physician Gastroenterology 03/21/25 Cely Diaz, CORWIN VALUE-BASED TRANSFORMATION PROGRAM [place], [place] Sales Operations Assistant 05/28/25 documented as of this encounter
--- OUTSIDE RECORDS SUMMARY | 2025-07-07 19:00 | XMS_ITS | Encounter Summary ---
Author Organization [facility] Address [address] [place] [address] Care Team Providers Care Biomedical Engineer Name Role Phone Mc Grant Unavailable [phone] El Agarwal APRN Unavailable [phone] Cely Diaz RN Unavailable Unavailable Jesus Luis MD Primary Care Provider + [phone] Encounter Details Date Type Department Care Team (Latest Contact Info) Description 06/13/2025 Travel Social History Tobacco Use Types Packs/Day [...] any time in the past 12 m [facility], were you homeless or living in a mcfp (including now)? No 06/04/2025 [facility] Utilities Answer Date Recorded In [...] someone who was sick? No / Unsure 06/13/2025 10:53 AM Arianne Weber Do you have any of the following new or worsening symptoms? None of these 06/13/2025 10:53 AM EST [place], Arianne E * Travel Screening Question Answer Date of Assessment Author Have you traveled internatio rachel or domestically in the last month? No 06/13/2025 10:53 AM EST Arianne Hyman documented as of this encounter Mental Status * Communicable Disease Screening Question Answer Entry Date Author Have you been in contact with someone who was sick? No / Unsure 06/13/2025 10:53 AM EST Arianne Black Do you have any of the following new or worsening symptoms? None of these 06/13/2025 10:53 AM EST Arianne Luque * Travel Screening Question Answer Entry Date Author Have you traveled internatio rachel or domestically in the last month? No 06/13/2025 10:53 AM EST Arianne Hyman documented in this encounter Plan of Treatment Upcoming Encounters Date Type Department Care Team (Late st Contact Info) Description 07/17/2025 8:45 AM EST Clinical Support [facility] [address] [place] [address] 07/17/2025 10:30 AM EST Office Visit [facility] [address] [place] [address] Nj Johns MD [address] [place] [address] documented as of this encounter Goals Goal [...] Not on track( 3:04 PM EST) Cely Patricia, RN Patient to follow-up with medication assistance [...] documented as of this encounter Care Teams Biomedical Engineer Relationship Specialty [place] [address] PCP - General 06/04/25 Mc Grant Referring Physician Gastroenterology 02/21/24 El Agarwal APRN 67646 Referring Physician Gastroenterology 03/21/25 Cely Diaz, RN VALUE-BASED TRANSFORMATION PROGRAM [place], [place] Label Printing Machinist 05/28/25 documented as of this encounter
--- OUTSIDE RECORDS SUMMARY | 2025-07-07 19:00 | XMS_ITS | Encounter Summary ---
Author Organization [facility] Address [address] [place] [address] Care Team Providers Care Salesperson Women'S Dresses Name Role Phone Mc Grant Unavailable [phone] El Agarwal APRN Unavailable [phone] Cely Diaz RN Unavailable Unavailable Jesus Luis MD Primary Care Provider + [phone] Reason for Visit * Reason Comments HRCM Encounter Details Date Type Department Care Team (Late st Contact Info) Description 06/19/2025 Patient Outreach POPULATION HEALTH [address] [place] [address] Cely Diaz, RN VALUE-BASED TRANSFORMATION PROGRAM [facility] Social History Tobacco Use Types Packs/Day Years [...] any time in the past 12 m [facility], were you homeless or living in a half-way (including now)? No 06/04/2025 [facility] Utilities Answer Date Recorded In the past 12 months has th e [employer], gas, oil, or water [employer] threatened to shut off services in your [...] Answer Entry Date Author Outreach Reason Follow-Up 06/19/2025 2:18 PM EST Cely Marquez RN [facility] Reason For Encounter [facility] 2:18 PM EST Cely Diaz RN documented in this encounter Miscellaneous Notes * Progress Notes - Cely Diaz RN - 06/19/2025 2:18 PM EST [facility] Outreach/Follow-Up Completed on: 06/19/2025 Health Assessment: Symptom Changes/Updates: [x] Yes [] No [] N/A 06/14/2025: PCP appointment/SHON 06/15/2025: Paracentesis at [facility] - 3L fluid removed; labs drawn- PCP followed up with results. Patient reports no changes in medications based upon labs Paracentesis dressing change on Wednesday, then Wednesday- leaking fluid, stopped later on Wednesday. Changed dressing today. No further drainage. Advised patient that drainage may occur following paracentesis for approximately 24 hours. Advised patient to call PCP office or IR if further questions. Patient reports retaining fluid again. Taking Bumex 2 mg twice daily. Has not been completing dailyweights. Advised patient to do daily weights 1st thing in the morning, keep record to share with PCP and liver transplant appointment. Encouraged patient to call PCP to notify of symptoms, if sooner appointment or paracentesis needed.Patient will call. Rifaximin: Patient has not received from [facility]. My chart message sent to patient with phone number to call for follow-up. Patient will call. Blood glucose: Patient following sliding scale. Has not restarted Lantus. Has had 1 high reading of220. Medications/Refills: Changes: [] Yes [x] No [] N/A Summary Barriers to RX Access: [x] Yes [] No [] N/A Summary: Patient has not heard from [facility] regarding rifaximin. Phone number provided. Patient reports she will call to follow up. Care Plan: Care Plan Updates: [] Reviewed; Remains Appropriate [x] Care Plan updated Summary: Care Gaps Addressed: [x] Yes - completed mammogram for transplant follow-up [] No - (List why and next steps) [] Reviewed; no changes SDOH Update: [] Yes - (Summary) [] CHW Assigned: [x] Reviewed; no changes Patient Care Information: Recent ED/Hospital Visit Summary: Denies ED or hospital admissions Appointments/Follow-Up Upcoming Appointments: Future Appointments Date Time Provider Department Center 07/17/2025 8:45 AM TRANSPLANT LAB [facility] 07/17/2025 10:30 AM Nj Johns MD [facility] 07/24/2025 1:00 PM Lesia Cervantes MD [id number] Rob Martinez Missed Appointments: [x] N/A (List, with reschedule plan) Assistance Needed: (Reminders, coordination) Caregiver Support System: [] Updated: [x] Reviewed; Remains the same: Sister Education Provided: [] Reinforced Care Plan & F/U Process: [] Additional Information Provided: Next Steps: [x] Continue Care/Follow-up Plan Summary (if needed): [x] Tasks set for F/U one-week follow-up Provided NN phone for nonurgent calls as needed. Cely Diaz RN Population Health Nurse EMR M*[employer] Direct/Slurry Control Operator Helper disclaimer: Parts of this note were dictated using M Applied Visual [employer] Direct voice recognition software. As a result, errors may occur. When identified, these car dumper operator errors are corrected, but while every attempt is made to prevent/correct these, errors may still exist. Please do not hesitate to reach out to me for clarification. documented in this encounter Plan of Treatment Upcoming Encounters Date Type Department Care Team (Late st Contact Info) Description 07/17/2025 8:45 AM EST Clinical Support [facility] Transplant [place] [address] [place] [address] 07/17/2025 10:30 AM EST Office Visit [facility] Transplant [place] [address] [place] [address] Nj Johns MD [address] [place] [address] documented as of this encounter Goals Goal [...] RN Patient to follow-up with medication assistance program,[facility] Care Plan Med Adherence Not on [...] documented as of this encounter Care Teams Salesperson Women'S Dresses Relationship Specialty [place] [address] PCP - General 06/04/25 Mc Grant Referring Physician Gastroenterology 02/21/24 El Agarwal APRN 88121 Referring Physician Gastroenterology 03/21/25 Cely Diaz RN VALUE-BASED TRANSFORMATION PROGRAM [place], [place] Cafeteria Food Server 05/28/25 documented as of this encounter
--- OUTSIDE RECORDS SUMMARY | 2025-07-07 19:00 | XMS_ITS | Encounter Summary ---
Author Organization [facility] Address [address] [place] [address] Care Team Providers Care Layout Operator Name Role Phone Mc Grant Unavailable [phone] El Agarwal APRN Unavailable [phone] Cely Diaz RN Unavailable Unavailable Jesus Luis MD Primary Care Provider + [phone] Encounter Details Date Type Department Care Team (Latest Contact Info) Description 06/29/2025 Travel Social History Tobacco Use Types Packs/Day [...] were you homeless or living in a residential (including now)? No 06/26/2025 [facility] Utilities Answer Date Recorded In [...] Support [facility] [place] [address] [place] [address] 07/17/2025 10:30 AM EST Office Visit [facility] [place] [address] [place] [address] Nj Johns MD [address] [place] [address] documented as of this encounter [...] RN Patient to follow-up with medication assistance program,[facility] Care Plan Med Adherence [...] documented as of this encounter Care Teams Layout Operator Relationship Specialty [place] [address] PCP - General 06/04/25 Mc Grant Referring Physician Gastroenterology 02/21/24 El Agarwal APRN [id number] Referring Physician Gastroenterology 03/21/25 Cely Diaz, CORWIN VALUE-BASED TRANSFORMATION PROGRAM [place] Vibration Analyst 05/28/25 documented as of this encounter
--- OUTSIDE RECORDS SUMMARY | 2025-07-07 19:01 | XMS_ITS | Encounter Summary ---
Author Organization [facility] nter Address [address] [place] [address] Care Team Providers Care Safety Instructor Name Role Phone Trevor Rolon DO Primary Care Provider Lucy Christopher DO Unavailable Reason for Visit * Reason Comments Med Refill Encounter Details Date Type Department Care Team (Late st Contact Info) Description 09/29/2023 Refill [facility] NEUROLOGY PRACTICE [address] 8[address] Floor Clinic [place] [phone] Lupe Villalta, REFINERY OPERATOR HELPER [address] [facility] [place] [address] Social History Tobacco Use Types [...] Description 08/16/2025 10:00 AM EST Office Visit [facility] ENDOCRINOLOGY PRACTICE [address] 8[address] Floor [place] [phone] Brigitte Mahoney NP [address] [facility] [place] [address] 09/18/2025 1:30 PM EDT Office Visit [facility] RHEUMATOLOGY PRACTICE [address]th [place] [address] Suman Treviño MD [address] [facility] [place] [address] 12/13/2025 1:15 PM EDT Office Visit [facility] OBGYN PRACTICE [address]th [place] [address] Janice Woodward NP [address] [place] [id number] documented as of this encounter Visit Diagnoses Not on filedocumented in this encounter Additional Health Concerns Assessment Noted Time PHQ-9 Depression Total Score: 0 07/24/19 23 3:00 PM EST documented as of this encounter Care Teams Safety Instructor Relationship Specialty Start Date End Date Trevor Rolon DO [address] [facility] [address] [place] [phone] PCP - General Lucy Christopher DO [address] [place] [address] Consulting Physician Oncology 10/17/24 documented as of this encounter
--- OUTSIDE RECORDS SUMMARY | 2025-07-07 19:01 | XMS_ITS | Encounter Summary ---
Author Organization [facility] nter Address [address] [place] [address] Care Team Providers Care Equity Manager Name Role Phone Trevor Rolon DO Primary Care Provider Lucy Christopher DO Unavailable Encounter Details Date Type Department Care Team (Late st Contact Info) Description 07/17/2024 Orders Only [facility] [address] 8[address] [place] [address] Lupe Villalta, ROOF TILE LAYER [address] [facility] [place] [address] Social History Tobacco Use Types [...] ENDOCRINOLOGY PRACTICE [address] 8[address] Floor [place] [phone] Brigitte Mahoney NP [address] [facility] [place] [phone] 09/18/2025 1:30 PM EDT Office Visit [facility] RHEUMATOLOGY PRACTICE [address]th [place] [address] Suman Treviño MD [address] [facility] [place] [address] 12/13/2025 1:15 PM EDT Office Visit [facility] OBGYN PRACTICE [address]th [place] [address] Janice Woodward NP [address] [place] [phone] documented as of this encounter Visit Diagnoses Not on filedocumented in this encounter Additional Health Concerns Assessment Noted Time PHQ-9 Depression Total Score: 0 07/24/19 23 3:00 PM EST documented as of this encounter Care Teams Equity Manager Relationship Specialty Start Date End Date Tervor Rolon DO [address] [facility] [address] [place] [phone] PCP - General Lucy Christopher DO [address] [facility] [address] Consulting Physician Oncology 10/17/24 documented as of this encounter
--- OUTSIDE RECORDS SUMMARY | 2025-07-07 19:01 | XMS_ITS | Encounter Summary ---
Author Organization [facility] nter Address [address] [place] [address] Care Team Providers Care Unit Technician Name Role Phone Trevor Rolon DO Primary Care Provider Lucy Christopher DO Unavailable Reason for Visit * Reason Comments Med Refill Encounter Details Date Type Department Care Team (Late st Contact Info) Description 10/01/2023 Refill [facility] NEUROLOGY PRACTICE [address], 8[address] Floor Clinic [place] [phone] Lupe Villalta, COLOR COATER [address] [facility] [place] [address] Social History Tobacco Use Types [...] ENDOCRINOLOGY PRACTICE [address] 8[address] Floor [place] [phone] Brigitte Mahoney NP [address] [facility] [place] [address] 09/18/2025 1:30 PM EDT Office Visit [facility] RHEUMATOLOGY PRACTICE [address]th [place] [address] Suman Treviño MD [address] [facility] [place] [address] 12/13/2025 1:15 PM EDT Office Visit [facility] OBGYN PRACTICE [address]th [place] [address] Janice Woodward NP [address] [place] [phone] documented as of this encounter Visit Diagnoses Not on filedocumented in this encounter Additional Health Concerns Assessment Noted Time PHQ-9 Depression Total Score: 0 07/24/19 23 3:00 PM EST documented as of this encounter Care Teams Unit Technician Relationship Specialty Start Date End Date Trevor Rolon DO [address] [facility] [address] [place] [phone] PCP - General Lucy Christopher DO [address] [place] [address] Consulting Physician Oncology 10/17/24 documented as of this encounter
--- OUTSIDE RECORDS SUMMARY | 2025-07-07 19:01 | XMS_ITS | Clinical Summary ---
Author Organization [facility] yste Address [address] [place] [address] Care Team Providers Care Management Engineer Name Role Phone John Cowan MD Primary [...] Narrative 04/17/2015 10:47 AM EDT Exam Room: [facility] M[facility] RM 1 Exam Start: [id number] Exam Stop: [id number] HISTORY- Screening Mammography. Low Dose full field [...] RadiologistAhmet AVILA Released Date Time- 04/17/15 1049 [employer]- [employer]. Read By: MARILEE AVILA Released By: MARILEE AVILA Procedure Note Marilee Gabriel MD - 05/05/2015 Exam Room: [facility] 1 Exam Start: [id number] Exam Stop: [id number] HISTORY- Screening Mammography. Low Dose full field [...] MARILEE AVILA Released Date Time- 04/17/15 1049 [employer]- [employer] Read By: MARILEE AVILA Released By: MARILEE AVILA Pirere Orozco MD IM MAMMOGRAPHY ORDERABL ES Final Result from Last 3 Months or Most Recently Relevant to Health Maintenance Care Teams Management Engineer Relationship Specialty Start Date End Date John Cowan MD [address] [place] [address] PCP - General 04/16/15
--- OUTSIDE RECORDS SUMMARY | 2025-07-07 19:01 | XMS_ITS | Encounter Summary ---
Author Organization [facility] Address [address] [place] [address] Care Team Providers Care Agronomy Instructor Name Role Phone Mc Grant Unavailable [phone] El Agarwal APRN Unavailable [phone] Cely Diaz RN Unavailable Unavailable Jesus Luis MD Primary Care Provider + [phone] Encounter Details Date Type Department Care Team (Latest Contact Info) Description 06/06/2025 Travel Social History Tobacco Use Types Packs/Day [...] any time in the past 12 m [facility], were you homeless or living in a chcf (including now)? No 06/04/2025 [facility] Utilities Answer Date Recorded In [...] or domestically in the last month? No 06/06/2025 10:51 AM EST Mych art, Generic documented as of this encounter Mental Status * Travel Screening Question Answer Entry Date Author Have you traveled internatio rachel or domestically in the last month? No 06/06/2025 10:51 AM EST Mych art, Generic documented in this encounter Plan of Treatment Upcoming Encounters Date Type Department Care Team (Late st Contact Info) Description 07/17/2025 8:45 AM EST Clinical Support [facility] [address] [place] [phone] 07/17/2025 10:30 AM EST Office Visit [facility] [place] [address] [place] [address] Nj Johns MD [address] [place] [address] documented as of this encounter Goals Goal [...] RN Patient to follow-up with medication assistance program,[facility] Care Plan Med Adherence Not [...] documented as of this encounter Care Teams Agronomy Instructor Relationship Specialty [place] [address] PCP - General 06/04/25 Mc Grant Referring Physician Gastroenterology 02/21/24 El Agarwal APRN 85382 Referring Physician Gastroenterology 03/21/25 Cely Diaz, CORWIN VALUE-BASED TRANSFORMATION PROGRAM Prue, MD [employer] Consultant 05/28/25 documented as of this encounter
--- OUTSIDE RECORDS SUMMARY | 2025-07-07 19:01 | XMS_ITS | Encounter Summary ---
Author Organization [facility] nter Address [address] [place] [address] Care Team Providers Care Prefitter Doors Name Role Phone Trevor Rolon DO Primary Care Provider Lucy Christopher DO Unavailable Reason for Visit * Reason Comments Med Refill Encounter Details Date Type Department Care Team (Late st Contact Info) Description 10/06/2023 Refill [facility] NEUROLOGY PRACTICE [address] 8[address] Clinic [place] [phone] Lupe Villalta, CITY PLANNING TEACHER [address] [facility] [place] [address] Social History Tobacco Use Types [...] any clubs o r organizations such as evangelical groups, unions, fraternal or athletic groups, or [...] [address] 8[address] Floor [place] [phone] Brigitte Mahoney NP [address] [facility] [place] [address] 09/18/2025 1:30 PM EDT Office Visit [facility] RHEUMATOLOGY PRACTICE [address], [address]th [place] [address] Suman Treviño MD [address] [facility] [place] [address] 12/13/2025 1:15 PM EDT Office Visit [facility] OBGYN PRACTICE [address], [address] [place] [address] Janice Woodward NP [address] [place] [phone] documented as of this encounter Visit Diagnoses Not on filedocumented in this encounter Additional Health Concerns Assessment Noted Time PHQ-9 Depression Total Score: 0 07/24/19 23 3:00 PM EST documented as of this encounter Care Teams Prefitter Doors Relationship Specialty Start Date End Date Trevor Rolon DO [address] [facility] [address] [place] [phone] PCP - General Lucy Christopher DO [address] [place] [address] Consulting Physician Oncology 10/17/24 documented as of this encounter
--- OUTSIDE RECORDS SUMMARY | 2025-07-07 19:01 | XMS_ITS | Encounter Summary ---
Author Organization [facility] nter Address [address] [place] [address] Care Team Providers Care Insulation Packer Name Role Phone Trevor Rolon DO Primary Care Provider Lucy Christopher DO Unavailable Reason for Visit * Reason Comments Med Refill Encounter Details Date Type Department Care Team (Late st Contact Info) Description 08/08/[address] [facility] ENDOCRINOLOGY PRACTICE [address], 8[address] Floor Clinic [place] [phone] Brigitte Mahoney, CLAU [address] [place] [address] Social History Tobacco Use Types [...] How often do you attend chur or mosque services? More than 4 times [...] Mahoney NP [address] [place] [address] 09/18/2025 1:30 PM EDT Office Visit [facility] RHEUMATOLOGY PRACTICE [address] 8[address] Floor [place] [address] Suman Treviño MD [address] [place] [phone] 12/13/2025 1:15 PM EDT Office Visit [facility] [address] 7th [place] [address] Janice Woodward, CLAU [address] [place] [address] documented as of this encounter Visit Diagnoses Not on filedocumented in this encounter Additional Health Concerns Assessment Noted Time PHQ-9 Depression Total Score: 0 07/24/19 23 3:00 PM EST documented as of this encounter Care Teams Insulation Packer Relationship Specialty Start Date End Date Trevor Rolon DO [address] [facility] [address] [place] [address] PCP - General Lucy Christopher DO [address] [place] [address] Consulting Physician Oncology 10/17/24 documented as of this encounter
--- OUTSIDE RECORDS SUMMARY | 2025-07-07 19:01 | XMS_ITS | Encounter Summary ---
Author Organization [facility] nter Address [address] [place] [address] Care Team Providers Care Cop Name Role Phone Trevor Rolon DO Primary Care Provider Lucy Christopher DO Unavailable Reason for Visit * Reason Comments Med Refill Encounter Details Date Type Department Care Team (Late st Contact Info) Description 07/08/2024 Refill [facility] ENDOCRINOLOGY PRACTICE [address], 8[address] Floor Clinic [place] [phone] Brigitte Mahoney, CLAU [address] [place] [address] Social History Tobacco Use Types [...] [address] [place] [phone] 12/13/2025 1:15 PM EDT Office Visit [facility] [address] 7th [place] [address] Janice Woodward, CLAU [address] [place] [address] documented as of this encounter Visit Diagnoses Not on filedocumented in this encounter Additional Health Concerns Assessment Noted Time PHQ-9 Depression Total Score: 0 07/24/19 23 3:00 PM EST documented as of this encounter Care Teams Cop Relationship Specialty Start Date End Date Trevor Rolon DO [address] [facility] [address] [place] [address] PCP - General Lucy Christopher DO [address] [place] [address] Consulting Physician Oncology 10/17/24 documented as of this encounter
--- OUTSIDE RECORDS SUMMARY | 2025-07-07 19:01 | XMS_ITS | Continuity of Care Document ---
Author Organization [facility] New Address [address] [place] [address] 10 [address] [place] [address] Care Team Providers Care Mosaic Floor Layer Name Role Phone GAGE MOSLEY Primary Care Provider Unavailabl e GAGE MOSLEY Referring Provider Unavailable Assessment Encounter Date Assessment Date Assessment LastModified by Organization Details LastModified Time 04/24/2025 04/24/2025 Pain History: Patient comes in for follow-up examination for her mid and low back pain. She was lost to follow-up last seen back in 2022 due to transportation issues. This has currently been rectified. She does have a history of lumbar decompression and discectomy in 1994 at the L5-S1 level and subsequently had a another discectomy at L5-S1 in 2009 which was complicated by infection and abscess which was later drained in the same year. History of cirrhosis currently being treated by a liver specialist. She was formally on oxycodone 5 mg 3 times a day which did provide significant relief. She also has a history of medial branch blocks of the thoracic and lumbar spine which helped her tremendously as well as RFA's of the lumbar spine. She has developed new symptoms down the left lower extremity in the L5-S1 dermatomal distribution. She has an extensive hx of lumbar pain, cervical and thoracic pain. Hx of GOOD as well. She continues support with multiple speciality. Today She reports that she continues with right upper quadrant pain related to GOOD. On 03/26/2025 #1 Ayaz LMBB L3-5 90% relief ongoing as of 04/24/2025. She has had recent updated imaging with Severe DDD as well as facet changes. During her last visit she had an overall increase in pain. Medications were adjusted. This has helped to decrease pain. She is under the care of - She will be ready to join Liver Transplant list on 05/25/2025. She reports due to this she had to move in with her sister in [place]. I offered a transfer to another [facility] and she is unsure of the transfer to another facility. She has an upcoming injection scheduled with Dr Toro and she will discuss potential TMBB to have done prior to being placed on transplant list. Past Medical History: CHF, Anxiety, type 2 diabetes, Vitamin D Def, GERD, HTN, Neuropathy, GOOD Imaging: - X-ray of the thoracic spine from September 2021 showed degenerative changes most notable in the mid thoracic spine with disc space narrowing and anterior osteophyte formation. PROCEDURE: MR CERVICAL SPINE WO CONTRAST: 03/01/2023 Reversal lordotic curvature of the cervical spine.. [...] ligamentum thickening and uncovertebral hypertrophy results in xcct-ps-haqodgxk spinal canal narrowing and bilateral neural foraminal narrowing.. C5-C6: Broad disk bulge eccentric to the left with ligamentum flavum thickening and uncovertebral hypertrophy results in moderate spinal canal narrowing and mild bilateral neural foraminal narrowing. This abuts the ventral aspect of the cord.. C6-C7: Broad disk bulge with uncovertebral hypertrophy and ligamentum flavum thickening results in moderate spinal canal narrowing and kght-vz-hrcldbtm bilateral neural foraminal narrowing.. C7-T1: Broad disk [...] Schmorl's node.. PROCEDURE: XR THORACIC SPINE: 01/06/2023 The thoracic spine is in satisfactory alignment. Degenerative changes with disk space narrowing and osteophyte formation. No new vertebral body height loss. IMPRESSION: Redemonstration of degenerative change of the thoracic spine with disk space narrowing and osteophyte formation. No acute osseous findings.. * 02/20/2025 MR LUMBAR SPINE WITHOUT THEN WITH IV CONTRAST 02/20/2025 12:21 PM CDT FINDINGS: Preserved vertebral body height and alignment. [...] Mild left foraminal encroachment. Question laminectomy changes. IMPRESSION: Degenerative changes with canal and foraminal stenoses most significant at L4/5. Findings mildly progressed since 2022 MRI. Surgical evaluation/ history: lumbar decompression and discectomy in 1994 at the L5-S1 level and subsequently had a another discectomy at L5-S1 Conservative Treatments: Patient has failed conservative measures for greater than 6 weeks including physical therapy/chiroprac tic care/spinal manipulation, a monitored home exercise program started on 01/09/2025. Also, she has failed heat and medications such as NSAIDs. Interventional treatment history: see Vaccination Tab Previous analgesics: Oxycodone 5 mg Current analgesics: Oxycodone 7.5 mg Compliance Monitoring: Yohan Reviewed Up to Date and Appropriate Last UDS Confirmation: 02/13/2025 + Lyrica which is appropriate at time of UDS Moderate Risk due to age of 54 years and Chronic Medical Conditions f/u 4 weeks. Anticoagulant/Ant iplatelet Medications: None Current Plan of Care: -Lumbar MRI w contrast @ [facility] reviewed with the patient this visit with severe Facet Changes. -Discussed with the patient. -Hx of Cirrohosis of the Liver therefore tylenol will be avoided -Refill oxycodone 7.5 mg - TID prn #90 -Consider left-sided S1 transforaminal MARTIN in the future after MRI reviewed for new onset left lower extremity pain -She has transitioned speciality care to Neurology. She reports that it was recommended to see Neurosurgery. -If pt continues to have thoracic and lumbar pain next visit I will order TMBB to address Thoracic Facet Pain. -She has an upcoming appt with Neurosurgery at -She has an upcoming C Spine MRI at - She was recently given Flexeril 10 mg PO PRN to help with chronic muscle pain. reports that the addition of medication has helped to decreased muscle tension -Pt will follow up in clinic for continued evaluation and medication refill in 1 month to discuss pain, review imaging and determine further plan of care. vidya Not available 04/24/2025 08:02:38 Plan of Treatment Reminders Order Date Submit Date Provider Last Modified By Organization Details Last Modified Time Details Appointments FOLLOW UP 15 2025 01:45P M Zeinab Lackey APRN Not available Not available Not available Lab drug screen, urine 2024 [facility], [facility], [address] [place] [address], [id number], 04/27/2025 13:16:01 Referral None recorded. Procedures None recorded. Surgeries None recorded. Imaging None recorded. Medication Orders oxycodone 5 mg tablet 2024 [facility], [address] [place] [address], [id number], 04/24/2025 08:27:40 cyclobenz aprine 10 mg tablet 2024 [facility], [address] [place] [address], [id number], 05/03/2025 12:31:10 Patient TargetsNo targets recorded. Patient InstructionsNo instructions recorded. Reason for Referral None Reported. Results Created Date Observation Date Name Description Value Unit Range Abnormal Flag Note LastModifiedBy Organization Detail LastModifiedTime Result Notes None recorded. Problems Name Problem SNOMED Code Status Onset Date Resolution Date Notes Provider Name and Address Organization Details Recorded Time Diabetes mellitus 32167567 Active 2021 KIKE Allan - [facility] 2 06:09:30 Lumbar post-nabil ctomy syndrome 554325602 Active 2022 KIKE Zheng - [facility] 5 18:00:18 Lumbosacral spondylosis without myelopathy 11924657 Active 2022 KIKE Zheng - [facility] 5 12:30:03 Myalgia/nhi sitis - multiple 087378225 Active 2022 Suzy Prince nullKIKE - [facility] 5 17:26:10 Lumbar radiculopat 431647965 Active 2022 Suzy Prince null, [place] - [facility] 5 17:26:05 Thoracic back pain 225538347 Active 2022 Suzy Prince null, [place] - [facility] 5 17:26:19 Neck pain 33414113 Active 2022 Suzy Prince null, [place] - [facility] 5 17:26:12 Cervical radiculopat hy 26955223 Active 2022 Perla Gibson null, [place] - [facility] 5 18:00:18 Thoracic spondylosis 633153888 Active 2022 Suzy Prince null, [place] - [facility] 5 17:26:23 Metabolic dysfunction -associated steatohepat itis 827129992 Active 2024 Suzy Prince null, [place] - [facility] 5 17:27:14 Anxiety 34459131 Active 2024 Suzy Prince null, [place] - [facility] 5 17:27:44 Chronic depression 188858876 Active 2024 Suzy Prince null, [place] - [facility] 5 17:27:55 Chronic pain 97794997 Active 2024 Perla Gibson null, [place] - [facility] 5 18:00:18 Thoracic spondylosis without myelopathy 713471588 Active 2024 Perla Gibson null, [place] - [facility] 5 18:00:18 Long-term current use of opiate analgesic drug 1904186089969 08 Active 2024 Hemalatha Traylor null, [place] - [facility] 5 09:17:45 Muscle pain 53128957 Active 2024 Perla Gibson null, [place] - [facility] 5 18:00:18 Problem Notes None recorded. Procedures Surgical History Date Name Laterality Status Provider Name and Address Organization Details Recorded Time 2024 Diagnostic Lumbar MBB (2 Level Bilateral) completed Josie DOMINGUEZ - [facility] 5 11:35:19 2024 Diagnostic Lumbar MBB (2 Level Bilateral) completed Suzy DOMINGUEZ - [facility] 5 16:30:10 2024 extraction of cataract completed Perla DOMINGUEZ - [facility] 5 10:45:18 2022 Thoracic MBB (2 Level Bilateral) completed Josie DOMINGUEZ - [facility] 3 09:27:18 2022 Lumbar RFA (2 Level Bilateral) completed Josie Norwood [place] - [facility] 3 14:55:34 2022 Diagnostic Lumbar MBB (2 Level Bilateral) completed Ale Finch [place] - [facility] 3 09:29:25 2022 Diagnostic Lumbar MBB (2 Level Bilateral) completed Josie [place] - [facility] 3 15:40:12 2009 operation on lumbar spine completed Tyrone Finch [place] - [facility] 2 16:30:19 2009 Lumbar Discectomy/Decompression completed Ale DOMINGUEZ - [facility] 2 16:28:53 1994 Lumbar Discectomy/Decompression completed Ale Anthonylin [place] - [facility] 2 16:28:29 Cholecystectomy completed Leo DOMINGUEZ - [facility] 2 06:14:35 ligation of fallopian tube completed Leo DOMINGUEZ - [facility] 2 06:14:41 Breast Surgery completed Ale Finch [place] - [facility] 2 16:26:33 hysterectomy completed Suzy DOMINGUEZ - [facility] 5 17:26:29 exploratory laparotomy completed Davie DOMINGUEZ [facility] 5 17:26:46 excision of ganglion cyst completed Suzy DOMINGUEZ [facility] 5 17:26:52 appendectomy completed Suzy DOMINGUEZ [facility] 5 17:26:57 colonoscopy completed Suzy DOMINGUEZ [facility] 5 17:27:03 esophagogastroduodenoscopy completed Suzy DOMINGUEZ [facility] 5 17:27:07 Imaging Results None recorded. Procedure Notes None recorded. Medical Equipment None Reported. Allergies Allergen ID Allergen Name Allergen Category Reaction Reaction Severity Criticality Documentation Date Start Date Code Code System Note Provider Name and Address Organization Details Recorded Time 743449 Substance with sulfonami de structure and antibacte rial mechanism of action (substanc e) medicatio n itching rash Not available Not available Not available 05/25/2022 60913 8003 SNOMED KIKE Allan [facility] 2 06:08:56 290775 Betadine medicatio n itching rash Not available Not available Not available 05/25/2022 36612 0 RxNorm KIKE Allan [facility] 2 06:09:06 707334 iodine medicatio n itching rash Not available Not available Not available 05/25/2022 5933 RxNorm Ale KIKE Kamara [facility] 2 16:25:36 229753 vortioxet ine hydrobrom abimael medicatio n Not available Not available Not available 01/09/2025 21148 34 RxNorm KIKE Piña [facility] 5 17:24:07 520505 sulfameth oxazole / trimethop rim medicatio n hives Not available [facility] 05/30/20252024 41374 RxNorm Pt repor ts full body hives Not Available walter - External [employer] - prod 5 15:16:49 015557 vortioxet ine hydrobrom abimael medicatio n itching rash Not available Not available [facility] 05/30/20252019 17572 34 RxNorm Not Available walter - External Data [employer] - prod 5 15:16:49 489497 povidone- iodine medicatio n hives Not available [facility] 05/30/20252015 8611 RxNorm Not Available [employer] - [employer] - prod 5 15:24:15 090472 sulfaceta mide medicatio n hives Not available [facility] 05/30/20252015 26081 RxNorm Not Available [employer] - [employer] - prod 5 15:24:15 688928 acetamino phen / oxycodone medicatio n Not available Not available Not available 06/01/2025 00974 3 RxNorm Not Available [employer] - prod 5 10:38:07 246508 vortioxet ine medicatio n rash Not available Not available 06/01/2025 75332 99 RxNorm Not Available [employer] - prod 5 10:38:07 Medications [...] e Candie Pen Needle 32 gauge x USE TWICE DAILY 01/09 completed Not Available [...] Ultra-Fin e 1 mL 31 gauge x 11/24 USE TO INJECT INSULIN WITH EACH MEAL [...] Available Not Available Not Available Dexcom G6 Ignition Specialist USE DIRECTED 05/25 completed Not Available Not Available Not Available Dexcom G6 Transmitt er device USE ONCE EVERY 3 MONTHS 01/09 completed Not Available Not Available Not Available OneTouch Delica Plus Lancet 33 gauge USE TO CHECK BLOOD SUGAR THREE TIMES DAILY 01/09 completed Not Available Not Available Not Available Nurtec ODT 75 mg disintegr ating tablet DISSOLVE [...] Not Available Not Available Not Available Vitals Date Recorded Body height Pain severity - 0-10 verbal numeric rating [Score] - Reported Heart rate Systolic And Diastolic Provider Name and Address Organization Details Last Updated DateTime 04/24/2025 170.18 cm 6 76 /min 95/62 mm[Hg] Shakira Gibson [facility] 04/24/2025 07:38:29 Social History Question Answer Notes LastModified by Organizat ion Details LastModified Time Tobacco Smoking Status Current Every Day Smoker Ale daniel [facility] 05/25/2022 16:28:10 Do You Have An [...] Or The Highest Degree You Have Received? UM33940-4 [id number] Information not available 11/04/2022 Do You Have A Medical Power Of University Teacher? No [email or web address] Information not available 02/13/2025 What Was The Date Of Your Most Recent Tobacco Screening? 02/13/2025 Information not available 02/13/2025 What Is Your [...] ICD10 Code Diagnosis IMO Codes Diagnosis Note [id number] SHANI TORO MD [place] [address] [address] 03/27/2025 07:17:00 03/27/2025 08:01:51 Chronic pain 63062635 G89.29 Lumbar post-laminectomy syndrome 045557407 M96.1 Lumbosacra l spondylosis without myelopathy 57821242 M47.194 3018948 Thoracic s pondylosis without myelopathy 033650071 M47.814 Cervical radiculopathy 54098840 M54.12 Long-term drug therapy 876121608 Z79.899 No UDS on 03/27 Metabolic dysfunction-associate d steatohepatitis 314899718 K75.81 284096 Muscle pain 39112123 M79 .10 71383 [id number] MD Dee RESTREPO [address] [address] 03/26/2025 15:49:09 03/26/2025 16:30:23 Lumbosacral spondylosis without myelopathy 36939007 M47.018 2918108 [id number] MD Dee RESTREPO [address] [address] 04/24/2025 07:16:44 04/24/2025 08:13:05 Chronic pain 50345106 G89.29 Lumbar post-laminectomy syndrome 155934047 M96.1 Muscle pain 74894948 M79 .10 29456 Lumbosacra l spondylosis without myelopathy 94584850 M47.995 9602149 Metabolic dysfunction-associate d steatohepatitis 995814945 K75.81 255806 Thoracic s pondylosis without myelopathy 871649104 M47.814 Cervical radiculopathy 31589938 M54.12 Long-term drug therapy 662303484 Z79.899 Health Concerns Section Related Observation LastModified by Organization Detai ls LastModified Time None Recorded Concern Status LastModified by Organization Details LastModified Time None Recorded Payers Encounter Date Sequence Insurance Name Policy Number Policy Lopez Covered Member ID Lopez Member ID Guarantor Name 04/24/2025 1 [employer] [facility] (MEDICAID HMO) Trudy Peña [id number] Trudy Peña Notes Date Note Type Note Provider Name and Address Organization Details Recorded Time 04/24/20 25 text/htm l Thoracic back pain (2)*Reported by PatientHPIFor associated symptoms, patient reportsnumbness,tingling,weakne ss, andpopping/clicking. For functional assessment of adls, patient reportsdifficulty completing filter cloth maker secondary to pain.,difficulty exercising on a regular basis secondary to pain., anddifficulty participating in recreation on a regular basis secondary to pain.but reportslives independentlyandable to bathe/groom without assistance.. For onset, patient reportsdate of onset: (2009). For location, patient reportsmidlineandparaspinal: bilateral. For duration, patient reportsconstant,varies throughout the day, andworse at nighttime. For context, patient reportsstarted without cause. For quality, patient reportsaching,burning, andworsening. For pain intensity, patient reportsmoderate,current pain level: 6/10,average pain level: 6/10, andworst pain level: 8/10. For aggravating factors, patient reportssitting,standing,walking ,lifting,twisting, andbending/squatting. For alleviating factors, patient reportslying downandrest. For prior imaging, patient reportsx-ray (09/10/2021 t-spine)andmri (08/23/22 l-spine02/20/2025). For thoracic/lumbar surgery, patient reportsthoracic/lumbar decompression/discectomy: (1994 l5/s1 disc/[place] dr [place]ipp[id number] l5/s1 disc./ [facility]. dr dumont/ [place]2010 abscess drain from [facility]). For interventional treatment, patient reportsthoracic medial branch nerve blocks: helped significantly. For physical therapy, patient reportscurrently participating in home exercise program(hep): effectiveanddate started hep: 01/09/2025 days per week: 4(04/24/2025 patient continues to do hep, 4 days a week for at least 10 minutes, helping some). For current analgesics, patient reportsoxycodone effective(oxycodone 04/23/2025 at bedtime). For medications history, patient reportsnsaids: (ibu--ineffectivenaproxen--mini mal relief),muscle relaxants: (baclofen--ineffective),neuropa thics: (jackie--effectivelyrica--can't remember), andopioid pain medications: (oxycodone--allergyhydrocodone- -effective). For adverse reaction, patient reportsno nausea,no vomiting,no constipation, andno itching. For other conservative treatments, patient reportschiropractic treatments: __ (temp. relief),heat: __ (ineffective),ice: __ (ineffective), andtens unit: __ (effective). For prior pain management, patient reportsno. For oswestry disability index (woody), patient reportsscore/date competed: (12/14/2022 woody 69). For for female patients, patient reportsare you ? no. For complete care program, patient reportsorder date: (01/09/25-patient declined). Low back painReported by PatientHPIFor functional assessment of adls, patient reportsdifficulty completing filter cloth maker secondary to pain.,difficulty exercising on a regular basis secondary to pain., anddifficulty participating in recreation on a regular basis secondary to pain.but reportsliving independently.andable to bathe/groom without assistance.. For onset, patient reportsdate of onset: (1993 during labor). For location, patient reportsmidlineandparaspinal: bilateral(left lower extremity pain radiates lateral to the calf.). For duration, patient reportsvaries throughout the day. For context, patient reportsstarted without cause. For quality, patient reportsaching,gnawing,stabbing, throbbing,sharp, andworsening. For pain intensity, patient reportsmoderate,current pain level: __/10,average pain level: 6/10, andworst pain level: 9/10. For alleviating factors, patient reportsopioidsandneuropathic medications(injections). For aggravating factors, patient reportssitting,standing,walking ,lifting, andbending/squatting. For prior imaging, patient reportsmri (08/23/22 l-spine). For lumbar surgery, patient reportsnone. For medications history, patient reportsnsaids: (ibuprofen- ineffective),muscle relaxants: (denies rx),neuropathics: (lyrica- minimal relief),opioid pain medications: (oxycodone- effective), andacetaminophen: (ineffective). For prior pain management, patient reportsno. For for female patients, patient reportsare you ? no. For complete care program, patient reportsorder date: (01/09/25-patient). For physical therapy, (01/09/25 hep started). 03/26/2025 #1 Ayaz LMBB L3-5 90% relief ongoing as of 04/24/2025 Bharti Marks NP [address] [place] [address], [phone], [facility] 04/24/2025 13:54:12 OBGyn Episode No OBEpisode recorded.
--- OUTSIDE RECORDS SUMMARY | 2025-07-07 19:01 | XMS_ITS | Encounter Summary ---
Author Organization [facility] Address [address] [place] [address] Care Team Providers Care Active Directory Architect Name Role Phone Trevor Rolon DO Primary Care Provider Lucy Christopher DO Unavailable Reason for Visit * Reason Onset Date Comments transplant paper 05/10/2025 Encounter Details Date Type Department Care Team (Late st Contact Info) Description 05/10/2025 Telephone [facility] [address] Clinic [place] [phone] Janice Woodward, CLAU [address] [place] [address] transplant paper Social History Tobacco Use Types [...] PRACTICE [address] [place] [address] Brigitte Mahoney NP [address] [place] [address] 09/18/2025 1:30 PM EDT Office Visit [facility] [address] [place] [address] Suman Treviño MD [address] [place] REYNA [facility] 12/13/2025 1:15 PM EDT Office Visit [facility] [address] [place] [address] Janice Woodward, CLAU [address] [place] [facility] documented as of this encounter Visit Diagnoses Not on filedocumented in this encounter Additional Health Concerns Assessment Noted Time PHQ-9 Depression Total Score: 0 07/24/19 23 3:00 PM EST documented as of this encounter Care Teams Active Directory Architect Relationship Specialty Start Date End Date Trevor Rolon DO [address] [facility] [address] [place] [address] PCP - General Lucy Christopher DO [address] [facility] [place] [address] Consulting Physician Oncology 10/17/24 documented as of this encounter
--- OUTSIDE RECORDS SUMMARY | 2025-07-07 19:01 | XMS_ITS | Encounter Summary ---
Author Organization [facility] nter Address [address] [place] [address] Care Team Providers Care Survey Associate Name Role Phone Trevor Rolon DO Primary Care Provider Lucy Christopher DO Unavailable Encounter Details Date Type Department Care Team (Late st Contact Info) Description 10/06/2023 Orders Only [facility] [address], [address] [place] [address] Lupe Villalta, TREASURY ANALYST [address] [facility] [address] Social History Tobacco Use Types [...] Description 08/16/2025 10:00 AM EST Office Visit [facility] [address], 8th Floor [place] [phone] Brigitte Mahoney NP [address] [facility] [place] [address] 09/18/2025 1:30 PM EDT Office Visit [facility] [address], 8th [place] [address] Smuan Treviño MD [address] [place] [address] 12/13/2025 1:15 PM EDT Office Visit [facility] [address], 7th [place] [address] Janice Woodward NP [address] [place] [id number] documented as of this encounter Visit Diagnoses Not on filedocumented in this encounter Additional Health Concerns Assessment Noted Time PHQ-9 Depression Total Score: 0 07/24/19 23 3:00 PM EST documented as of this encounter Care Teams Survey Associate Relationship Specialty Start Date End Date Trevor Rolon DO [address] [facility] [address] [place] [phone] PCP - General Lucy Christopher DO [address] [place] [address] Consulting Physician Oncology 10/17/24 documented as of this encounter
--- OUTSIDE RECORDS SUMMARY | 2025-07-07 19:01 | XMS_ITS | Encounter Summary ---
Author Organization [facility] nter Address [address] [place] [address] Care Team Providers Care Moccasin Sewer Name Role Phone Trevor Rolon DO Primary Care Provider Lucy Christopher DO Unavailable Encounter Details Date Type Department Care Team (Late st Contact Info) Description 08/08/2024 Orders Only [facility] [address], 8th [place] [address] Brigitte Mahoney, CLAU [address] [place] [address] Social History Tobacco Use Types [...] How often do you attend chur or methodist services? More than 4 times [...] ENDOCRINOLOGY PRACTICE [address], 8th Floor [place] [address] Brigitte Mahoney NP [address] [facility] [place] [phone] 09/18/2025 1:30 PM EDT Office Visit [facility] [address], 8th [place] [address] Suman Treviño MD [address] [facility] [place] [address] 12/13/2025 1:15 PM EDT Office Visit [facility] [address], 7th [place] [address] Janice Woodward NP [address] [place] [id number] documented as of this encounter Visit Diagnoses Not on filedocumented in this encounter Additional Health Concerns Assessment Noted Time PHQ-9 Depression Total Score: 0 07/24/19 23 3:00 PM EST documented as of this encounter Care Teams Moccasin Sewer Relationship Specialty Start Date End Date Trevor Rolon DO [address] [facility] [address] [place] [phone] PCP - General Lucy Christopher DO [address] [facility] [address] [facility] [place] [address] Consulting Physician Oncology 10/17/24 documented as of this encounter
--- OUTSIDE RECORDS SUMMARY | 2025-07-07 19:01 | XMS_ITS | Encounter Summary ---
Author Organization [facility] nter Address [address] [place] [address] Care Team Providers Care Pin Drafting Machine Operator Name Role Phone Trevor Rolon DO Primary Care Provider Lucy Christopher DO Unavailable Encounter Details Date Type Department Care Team (Late st Contact Info) Description 01/08/2023 Orders Only [facility] [address], 8th [place] [address] Brigitte Mahoney, CLAU [address] [place] [address] Social History Tobacco Use Types [...] PRACTICE [address], 8th [place] [address] Brigitte Mahoney NP [address] [facility] [place] [address] 09/18/2025 1:30 PM EDT Office Visit [facility] [address], 8th [place] [address] Suman Treviño MD [address] [facility]. [place] [facility] 12/13/2025 1:15 PM EDT Office Visit [facility] [address], [address] [place] [address] Janice Woodward, BEATER MACHINE OPERATOR [address] [place] [address] documented as of this encounter Visit Diagnoses Not on filedocumented in this encounter Additional Health Concerns Assessment Noted Time PHQ-9 Depression Total Score: 0 07/24/19 23 3:00 PM EST documented as of this encounter Care Teams Pin Drafting Machine Operator Relationship Specialty Start Date End Date Trevor Rolon DO [address] [facility] [address] [place] [place] [address] PCP - General Lucy Christopher DO [address] [place] [facility] [place] [address] Consulting Physician Oncology 10/17/24 documented as of this encounter
--- OUTSIDE RECORDS SUMMARY | 2025-07-07 19:01 | XMS_ITS | Encounter Summary ---
Author Organization [facility] nter Address [address] [place] [address] Care Team Providers Care Community Health Nurse Name Role Phone Trevor Rolon DO Primary Care Provider Lucy Christopher DO Unavailable Reason for Visit * Reason Comments Med Refill Encounter Details Date Type Department Care Team (Late st Contact Info) Description 07/06/2024 Refill [facility] [address], 8th Floor Clinic [place] [phone] Brigitte Mahoney, CLAU [address] [place] [address] Social History Tobacco Use Types [...] Description 08/16/2025 10:00 AM EST Office Visit [facility] [address], 8th Floor [place] [address] Brigitte Mahoney NP [address] [facility] [place] [address] 09/18/2025 1:30 PM EDT Office Visit [facility] [address], 8th Floor [place] [address] Suman Treviño MD [address] [facility]. [place] [id number] 12/13/2025 1:15 PM EDT Office Visit [facility] [address], 7th [place] [address] Janice Woodward, DIAL PRINTER [address] [place] [address] documented as of this encounter Visit Diagnoses Not on filedocumented in this encounter Additional Health Concerns Assessment Noted Time PHQ-9 Depression Total Score: 0 07/24/19 23 3:00 PM EST documented as of this encounter Care Teams Community Health Nurse Relationship Specialty Start Date End Date Trevor Rolon DO [address] [facility] [address] [place] [address] PCP - General Lucy Christopher DO [address] [place] [address] Consulting Physician Oncology 10/17/24 documented as of this encounter
--- OUTSIDE RECORDS SUMMARY | 2025-07-07 19:01 | XMS_ITS | Encounter Summary ---
Author Organization [facility] Address [address] [place] [address] Care Team Providers Care Licensed Physical Therapist Assistant Name Role Phone Mc Grant Unavailable [phone] El Agarwal APRN Unavailable [phone] eCly Diaz RN Unavailable Unavailable Jesus Luis MD Primary Care Provider + [phone] Encounter Details Date Type Department Care Team (Late st Contact Info) Description 06/04/2025 Telephone [facility] [place] [address] [facility], [address] [place] [address] Arti Chaudhry V, RN HOSPTIAL PILE TRIMMER RECOVERY None Social History Tobacco Use Types Packs/Day [...] any time in the past 12 m [facility], were you homeless or living in a longterm (including now)? No 06/04/2025 [facility] Utilities Answer Date Recorded In the past 12 months has th e [employer], gas, oil, or water company threatened to shut off services in your home? No 06/04/2025 Comments Unknown Sex and Gender Information Value Date Recorded Sex Assigned at Female 03/11/2021 7:37 PM EDT Legal Sex Female 8:49 PM EDT Gender Identity Female 03/11/2021 7:37 PM EDT Sexual Orientation Not on file documented as of this encounter Miscellaneous Notes * Telephone Encounter - Arti Chaudhry RN - 06/04/2025 9:54 AM EST RN called patient for pre-clinic call. LVM and provided call back number. RN asked patient to return call if has seen a assistant professor surgical technology or had prior cardiac testing. Verified date, time and location of appointment. FIFI Dailey, RN documented in this encounter Plan of Treatment Upcoming Encounters Date Type Department Care Team (Late st Contact Info) Description 07/17/2025 8:45 AM EST Clinical Support [facility] [address] [place] [address] 07/17/2025 10:30 AM EST Office Visit [facility] [place] [address] [place] [address] Nj Johns MD [address] [place] [address] documented as of this encounter Goals Goal [...] Patient to follow-up with medication assistance program,[facility] RX Care Plan Med Adherence Not on [...] as of this encounter Care Teams Licensed Physical Therapist Assistant Relationship Specialty [place] [address] PCP - General 06/04/25 Mc Grant Referring Physician Gastroenterology 02/21/24 El Agarwal APRN [address] Referring Physician Gastroenterology 03/21/25 Cely Diaz, RN VALUE-BASED TRANSFORMATION PROGRAM [place] Fabric Worker Fitter 05/28/25 documented as of this encounter
--- OUTSIDE RECORDS SUMMARY | 2025-07-07 19:01 | XMS_ITS | Encounter Summary ---
Author Organization [facility] nter Address [address] [place] [address] Care Team Providers Care Sole Molding Machine Operator Name Role Phone Trevor Rolon DO Primary Care Provider Lucy Christopher DO Unavailable Encounter Details Date Type Department Care Team (Late st Contact Info) Description 05/16/2025 Abstract [facility] [address], 7[address] Floor Clinic [place] [phone] Janice Woodward, CLAU [address] [place] [address] Social History Tobacco Use Types Packs/Day Years [...] often do you attend [facility] or cheondoism services? More than 4 times per year 07/24/2022 Do you belong to any clubs o r organizations such as mormonism groups, unions, fraternal or athletic groups, or [...] ENDOCRINOLOGY PRACTICE [address], 8th [place] [address] Brigitte Mhaoney NP [address] [facility] [place] [phone] 09/18/2025 1:30 PM EDT Office Visit [facility] [address], 8th Floor [place] [phone] Suman Treviño MD [address] [place] [address] 12/13/2025 1:15 PM EDT Office Visit [facility] [address], 7th [place] [address] Janice Woodward NP [address] [place] [phone] documented as of this encounter Visit Diagnoses Not on filedocumented in this encounter Additional Health Concerns Assessment Noted Time PHQ-9 Depression Total Score: 0 07/24/19 23 3:00 PM EST documented as of this encounter Care Teams Sole Molding Machine Operator Relationship Specialty Start Date End Date Trevor Rolon DO [address] [facility] [address] [place] [phone] PCP - General Lucy Christopher DO [address] [facility] [address] [facility] [address] [facility] [place] [address] Consulting Physician Oncology 10/17/24 documented as of this encounter
--- OUTSIDE RECORDS SUMMARY | 2025-07-07 19:01 | XMS_ITS | Encounter Summary ---
Author Organization [facility] nter Address [address] [place] [address] Care Team Providers Care Ship'S Officer Name Role Phone Trevor Rolon DO Primary Care Provider Lucy Christopher DO Unavailable Encounter Details Date Type Department Care Team (Late st Contact Info) Description 07/11/2024 Orders Only [facility] [address], 8th [place] [address] Brigitte Mahoney, CLAU [address] [place] [address] Social History Tobacco Use Types [...] ENDOCRINOLOGY PRACTICE [address], 8th Floor [place] [phone] Brigitte Mahoney NP [address] [facility] [place] [phone] 09/18/2025 1:30 PM EDT Office Visit [facility] PRACT[facility] [address] [place] [address] Suman Treviño MD [address] [facility] [place] [address] 12/13/2025 1:15 PM EDT Office Visit [facility] [address], [address] [place] [address] Janice Woodward NP [address] [place] [phone] documented as of this encounter Visit Diagnoses Not on filedocumented in this encounter Additional Health Concerns Assessment Noted Time PHQ-9 Depression Total Score: 0 07/24/19 23 3:00 PM EST documented as of this encounter Care Teams Ship'S Officer Relationship Specialty Start Date End Date Trevor Rolon DO [address] [facility] [address] [place] [phone] PCP - General Lucy Christopher DO [address] [facility] [address] [facility] [place] [address] Consulting Physician Oncology 10/17/24 documented as of this encounter
--- OUTSIDE RECORDS SUMMARY | 2025-07-07 19:01 | XMS_ITS | Encounter Summary ---
Author Organization [facility] nter Address [address] [place] [address] Care Team Providers Care Head Of Cytogenetics Name Role Phone Trevor Rolon DO Primary Care Provider Lucy Christopher DO Unavailable Encounter Details Date Type Department Care Team (Late st Contact Info) Description 02/25/2023 Orders Only [facility] [address], 8th [place] [address] Brigitte Mahoney, CLAU [address] [place] [address] Social History Tobacco Use Types [...] Description 08/16/2025 10:00 AM EST Office Visit [facility] [address], 8th [place] [address] Brigitte Mahoney NP [address] [facility] [place] [address] 09/18/2025 1:30 PM EDT Office Visit [facility] [address], 8th [place] [address] Suman Treviño MD [address] [facility]. [place] [facility] 12/13/2025 1:15 PM EDT Office Visit [facility] [address], [address] [place] [address] Janice Woodward, SHIFT SUPERVISOR RN [address] [place] [address] documented as of this encounter Visit Diagnoses Not on filedocumented in this encounter Additional Health Concerns Assessment Noted Time PHQ-9 Depression Total Score: 0 07/24/19 23 3:00 PM EST documented as of this encounter Care Teams Head Of Cytogenetics Relationship Specialty Start Date End Date Trevor Rolon DO [address] [facility] [address] [place] [address] PCP - General Lucy Christopher DO [address] [place] [address] Consulting Physician Oncology 10/17/24 documented as of this encounter
--- OUTSIDE RECORDS SUMMARY | 2025-07-07 19:01 | XMS_ITS | Data Portability ---
Author Organization [facility] Address [address] [place] [address] Care Team Providers Care Waste Machine Offbearer Name Role Phone GAGE MOSLEY Primary Care Provider Unavailabl e GAGE MOSLEY Referring Provider Unavailable Assessment Encounter Date Assessment Date Assessment LastModified by Organization Details LastModified Time 03/13/2025 03/13/2025 Pain History: Patient comes in for follow-up [...] lower extremity in the L5-S1 dermatomal distribution. Currently she is sitting calmly in chair. She reports that she was seen by Dr. Toro last visit due to loss of appointments and transportation. Therefore her medications and plan of care has been continued. She has an extensive hx of lumbar pain, cervical and thoracic pain. Hx of GOOD as well. She continues support with multiple speciality. Today She is alert and oriented. She reports that she was seen in the ER recently due to increase in b/l toe pain that feels like locking . She reports that she did not get to see a Dr and left AMA. She continues with chronic lumbar axial pain. This has been prolonged and in the past she has done well with Lumbar RFA. She is interested in continuing treatment. However, her last RFA has been over 24 months. Therefore repeating LMBBs will be required, Past Medical History: CHF, Anxiety, type 2 [...] ligamentum thickening and uncovertebral hypertrophy results in xcuj-ff-ysepdiwj spinal canal narrowing and bilateral neural foraminal narrowing.. C5-C6: Broad disk bulge eccentric to the left with ligamentum flavum thickening and uncovertebral hypertrophy results in moderate spinal canal narrowing and mild bilateral neural foraminal narrowing. This abuts the ventral aspect of the cord.. C6-C7: Broad disk bulge with uncovertebral hypertrophy and ligamentum flavum thickening results in moderate spinal canal narrowing and ucaw-mw-uexxyvev bilateral neural foraminal narrowing.. C7-T1: Broad disk [...] analgesics: Oxycodone 5 mg Current analgesics: Oxycodone 5 mg Compliance Monitoring: Yohan Reviewed Up to Date and Appropriate Last UDS Confirmation: 02/13/2025 + Lyrica which is appropriate at time of UDS Moderate Risk due to age of 54 years and Chronic Medical Conditions f/u 4 weeks. Anticoagulant/Ant iplatelet Medications: None Current Plan of Care: -Lumbar MRI w contrast @ [facility] reviewed with the patient this visit with severe Facet Changes. -Discussed with the patient. -Hx of Cirrohosis of the Liver therefore tylenol will be avoided -Refill oxycodone5 mg - TID prn #90 -Consider left-sided S1 transforaminal MARTIN in the future after MRI reviewed for new onset left lower extremity pain -She has transitioned speciality care to Neurology. She reports that it was recommended to see Neurosurgery. -If pt continues to have thoracic and lumbar pain next visit I will order TMBB to address Thoracic Facet Pain. -She done well with Lumbar RFA in the last. Pain relief lasted 2 years-. I will reorder Lumbar LMBB L3-5 w Juliana Dee w/o Sedation -She has an upcoming appt with Neurosurgery at -She has an upcoming C Spine MRI at -Pt will follow up in clinic for continued evaluation and medication refill in 1 month to discuss pain, review imaging and determine further plan of care. vidya Not available 03/15/2025 13:31:04 03/27/2025 03/27/2025 Pain History: Patient comes in for follow-up [...] continues support with multiple speciality. Today She is alert and oriented. 03/26/2025 #1 Ayaz LMBB L3-5 95% relief ongoing as of 03/27/2025. She continues to have toes/fingers to lock up . She reports that she was rescheduled by Hematology. She states that prior to LMBB she was taking 2 pain medications within 1 hour in an attempt to control lumbar pain. She reports that she continues with right upper quadrant pain related to GOOD. Past Medical History: CHF, Anxiety, type 2 [...] ligamentum thickening and uncovertebral hypertrophy results in pfxv-ze-oiukhvqc spinal canal narrowing and bilateral neural foraminal narrowing.. C5-C6: Broad disk bulge eccentric to the left with ligamentum flavum thickening and uncovertebral hypertrophy results in moderate spinal canal narrowing and mild bilateral neural foraminal narrowing. This abuts the ventral aspect of the cord.. C6-C7: Broad disk bulge with uncovertebral hypertrophy and ligamentum flavum thickening results in moderate spinal canal narrowing and dfqy-cz-npywjsmg bilateral neural foraminal narrowing.. C7-T1: Broad disk [...] of Care: -Lumbar MRI w contrast @ [facility] reviewed with the patient this visit with severe Facet Changes. -Discussed with the patient. -Hx of Cirrohosis of the Liver therefore tylenol will be avoided -Refill and increase oxycodone 7.5 mg - TID prn #90 -Consider left-sided S1 transforaminal MARTIN in the future after MRI reviewed for new onset left lower extremity pain -She has transitioned speciality care to Neurology. She reports that it was recommended to see Neurosurgery. -If pt continues to have thoracic and lumbar pain next visit I will order TMBB to address Thoracic Facet Pain. -She done well with Lumbar RFA in the last. Pain relief lasted 2 years-. She has done well with #1 LMBB in an attempt to control pain. -She has an upcoming appt with Neurosurgery [...] further plan of care. vidya Not available 03/27/2025 07:57:03 04/24/2025 04/24/2025 Pain History: Patient comes in [...] Dominguez. I offered a transfer to another [facility] and she is unsure of the [...] ligamentum thickening and uncovertebral hypertrophy results in zdck-vf-iqpuoina spinal canal narrowing and bilateral neural foraminal narrowing.. C5-C6: Broad disk bulge eccentric to the left with ligamentum flavum thickening and uncovertebral hypertrophy results in moderate spinal canal narrowing and mild bilateral neural foraminal narrowing. This abuts the ventral aspect of the cord.. C6-C7: Broad disk bulge with uncovertebral hypertrophy and ligamentum flavum thickening results in moderate spinal canal narrowing and ufkp-dh-wpetuwze bilateral neural foraminal narrowing.. C7-T1: Broad disk [...] of Care: -Lumbar MRI w contrast @ [facility] reviewed with the patient this visit with [...] Not available Lab drug screen, urine 2024 [facility], [facility], [address] [place] [address], [address], 04/27/2025 13:16:01 Referral None recorded. Procedures lumbar radiofreq uency ablation (PROC) - RFA B/L L3-5 w [facility] with Sedation on or after 05/09/252024 025 [id number], [address], 06/30/2025 06:13:35 medial branch block, lumbar (PROC) - #2 B/L LMBB L3-5 w [facility] w/o Sedation/ [place] on or after 04/09/25[email or web address] [place] [address], [address], 04/11/2025 11:00:29 lumbar radiofreq uency ablation (PROC) [email or web address], [address], 03/15/2025 13:37:27 medial branch block, lumbar (PROC) [id number] [place] [address], [address], 03/19/2025 13:30:56 Surgeries None recorded. Imaging None recorded. Medication Orders oxycodone 5 mg tablet 2024 025 [facility], [address], [id number], 04/24/2025 08:27:40 cyclobenz aprine 10 mg tablet 2024 025 [facility], [address] [address] [place], [id number], 05/03/2025 12:31:10 oxycodone 7.5 mg tablet,or al ONLY (not for feeding tubes) 2024 025 [email or web address] [facility], [address], [place], [address], 06/11/2025 10:10:42 cyclobenz aprine 10 mg tablet 2024 025 [facility], [address] , [place], [address], 03/27/2025 19:32:45 oxycodone 5 mg tablet 2024 025 [facility], [address] , [place], [address], 04/24/2025 05:02:26 Patient TargetsNo targets recorded. Patient Instructions Encounter Date Encounter Id Patient Instructions Last Modified By Organization Details Last Modified Time 03/13/2025 [id number] neck: exercises [email or web address] Not available 03/13/2025 12:20:00 Reason for Referral None Reported. Results Created Date Observation Date Name Description Value Unit Range Abnormal Flag Note LastModifiedBy Organization Detail LastModifiedTime 02/14/2002/12/2025 XR, thora cic spine , 3 view No observ ation record ed. [facility] [address] , [place], [address], 02/13/2025 09:47:38 02/14/2002/12/2025 XR, lumbo sacra l spine , 2 or 3 view No observ ation record ed. [facility] [place] [address], [place], [address], 02/13/2025 09:47:39 02/21/20 25 02/20/2025 MRI, lumba r spine , w/wo contr ast No observ ation record ed. [email or web address] [facility] Scheduling [address], [place], [address], 02/21/2025 19:41:15 Result Notes None recorded. Problems Name Problem SNOMED Code Status Onset Date Resolution Date Notes Provider Name and Address Organization Details Recorded Time Diabetes mellitus 28767353 Active 2021 Leo Jacome null, [place] - [facility] 2 06:09:30 Lumbar post-nabil ctomy syndrome 858119926 Active 2022 Perla Gibson null, [place] - [facility] 5 18:00:18 Lumbosacral spondylosis without myelopathy 08916972 Active 2022 Perla Gibson null, [place] - [facility] 5 12:30:03 Myalgia/nhi sitis - multiple 075861400 Active 2022 Suzy Prince null, [place] - [facility] 5 17:26:10 Lumbar radiculopat hy 406997001 Active 2022 Suzy Prince null, [place] [facility] 5 17:26:05 Thoracic back pain 174696423 Active 2022 Suzy Prince null[place] [facility] 5 17:26:19 Neck pain 15798127 Active 2022 Suzy daniel, [place] - [facility] 5 17:26:12 Cervical radiculopat hy 83978709 Active 2022 Perla Gibson null, [place] - [facility] 5 18:00:18 Thoracic spondylosis 308622114 Active 2022 Suzy daniel, [place] - [facility] 5 17:26:23 Metabolic dysfunction -associated steatohepat itis 938796288 Active 2024 Suzy Prince null, [place] - [facility] 5 17:27:14 Anxiety 03950325 Active 2024 Suzy Prince null[place] [facility] 5 17:27:44 Chronic depression 331181985 Active 2024 Suzy Prince null, [place] [facility] 5 17:27:55 Chronic pain 35508202 Active 2024 Perla Gibson null, [place] - [facility] 5 18:00:18 Thoracic spondylosis without myelopathy 358680392 Active 2024 Perla Gibson null, [place] - [facility] 5 18:00:18 Long-term current use of opiate analgesic drug 4205654532071 08 Active 2024 Hemalatha Layton null, [place] - [facility] 5 09:17:45 Muscle pain 28622154 Active 2024 Perla Gibson null, [place] [facility] 5 18:00:18 Problem Notes None recorded. Procedures Surgical History Date Name Laterality Status Provider Name and Address Organization Details Recorded Time 2024 Diagnostic Lumbar MBB (2 Level Bilateral) completed Josie Norwood [place] - [facility] 5 11:35:19 2024 Diagnostic Lumbar MBB (2 Level Bilateral) completed Suzy Prince [place] [facility] 5 16:30:10 2024 extraction of cataract completed Perla Gibson [place] [facility] 5 10:45:18 2022 Thoracic MBB (2 Level Bilateral) completed Josie [place] [facility] 3 09:27:18 2022 Lumbar RFA (2 Level Bilateral) completed Josie [place] [facility] 3 14:55:34 04/26/ 2023 Diagnostic Lumbar MBB (2 Level Bilateral) completed Ale DOMINGUEZ [facility] 3 09:29:25 2022 Diagnostic Lumbar MBB (2 Level Bilateral) completed Josie Norwood [facility] 3 15:40:12 2009 operation on lumbar spine completed Tyrone DOMINGUEZ [facility] 2 16:30:19 2009 Lumbar Discectomy/Decompression completed Ale DOMINGUEZ [facility] 2 16:28:53 1994 Lumbar Discectomy/Decompression completed Ale DOMINGUEZ [facility] 2 16:28:29 Cholecystectomy completed Leo DOMINGUEZ [facility] 2 06:14:35 ligation of fallopian tube completed Leo DOMINGUEZ [facility] 2 06:14:41 Breast Surgery completed Ale DOMINGUEZ [facility] 2 16:26:33 hysterectomy completed Suzy DOMINGUEZ [facility] 5 17:26:29 exploratory laparotomy completed Davie mathews Suresh DOMINGUEZ [facility] 5 17:26:46 excision of ganglion cyst completed Suzy DOMINGUEZ [facility] 5 17:26:52 appendectomy completed Suzy Suresh DOMINGUEZ [facility] 5 17:26:57 colonoscopy completed Suzy DOMINGUEZ [facility] 5 17:27:03 esophagogastroduodenoscopy completed Suzy DOMINGUEZ [facility] 5 17:27:07 Imaging Results None recorded. Procedure Notes None recorded. Medical Equipment None Reported. Allergies Allergen ID Allergen Name Allergen Category Reaction Reaction Severity Criticality Documentation Date Start Date Code Code System Note Provider Name and Address Organization Details Recorded Time 017400 Substance with sulfonami de structure and antibacte rial mechanism of action (substanc e) medicatio n itching rash Not available Not available Not available 05/25/2022 88004 8003 SNOMED Leo Jacome null, [place] - [facility] 2 06:08:56 574404 Betadine medicatio n itching rash Not available Not available Not available 05/25/2022 02109 0 RxNorm Leo Jacome null, [place] - [facility] 2 06:09:06 563268 iodine medicatio n itching rash Not available Not available Not available 05/25/2022 5933 RxNorm Ale Finch null, [place] - [facility] 2 16:25:36 849637 vortioxet ine hydrobrom abimael medicatio n Not available Not available Not available 01/09/2025 52604 34 RxNorm Suzy Prince null, [place] - [facility] 5 17:24:07 437439 sulfameth oxazole / trimethop rim medicatio n hives Not available high 05/30/20252024 27908 RxNorm Pt repor ts full body hives Not Available [place] - External [employer] - prod 5 15:16:49 599523 vortioxet ine hydrobrom abimael medicatio n itching rash Not available Not available high 05/30/20252019 78243 34 RxNorm Not Available [place] - External Data [employer] - prod 5 15:16:49 917458 povidone- iodine medicatio n hives Not available high 05/30/20252015 8611 RxNorm Not Available [place] - External Data [employer] - prod 5 15:24:15 397155 sulfaceta mide medicatio n hives Not available high 05/30/20252015 60596 RxNorm Not Available [place] - External Data [employer] - prod 5 15:24:15 204517 acetamino phen / oxycodone medicatio n Not available Not available Not available 06/01/2025 15465 3 RxNorm Not Available [place] - External Data [employer] - prod 5 10:38:07 478170 vortioxet ine medicatio n rash Not available Not available 06/01/2025 44866 99 RxNorm Not Available [place] - External Data Service - prod 10:38:07 Medications Name Sig Start Date Stop [...] Available Not Available Not Available Dexcom G6 Casting Wheel Operator Helper USE DIRECTED 05/25 completed Not Available Not Available Not Available Dexcom G6 Transmitt er device USE ONCE EVERY 3 MONTHS 01/09 completed Not Available Not Available Not Available OneTouch Delica Plus Lancet 33 gauge USE TO CHECK BLOOD SUGAR THREE TIMES DAILY 01/09 completed Not Available Not Available Not Available [facility] ODT 75 mg disintegr ating tablet DISSOLVE [...] and Address Organization Details Last Updated DateTime 03/13/2025 170.18 cm 7 87 /min 98/64 mm[Hg] [facility] 07:36:06 Date Recorded Body height Pain severity - 0-10 verbal numeric rating [Score] - Reported Heart rate Systolic And Diastolic Provider Name and Address Organization Details Last Updated DateTime 03/27/2025 170.18 cm 3 88 /min 106/66 mm[Hg] Perla Gibson [facility] 03/27/2025 07:23:15 Date Recorded Body height Pain severity - 0-10 verbal numeric rating [Score] - Reported Heart rate Systolic And Diastolic Provider Name and Address Organization Details Last Updated DateTime 04/24/2025 170.18 cm 6 76 /min 95/62 mm[Hg] [facility] 04/24/2025 07:38:29 Social History Question Answer Notes LastModified by Organizat ion Details LastModified Time Tobacco Smoking Status Current Every Day Sm[facility] 05/25/2022 16:28:10 Do You Have [...] Or The Highest Degree You Have Received? [id number] Information not available 11/04/2022 Do You Have A Medical Power Of Roll Winder? No [email or web address] Information not available 02/13/2025 What Was The Date Of Your Most Recent Tobacco Screening? 02/13/2025 [email or web address] Information not available 02/13/2025 What Is Your [...] available 2021 16:25:39 Medical History Condition Response Diabetes Y Anxiety Disorder Y Seizure Disorder N Osteoarthritis Y CHF [...] ICD10 Code Diagnosis IMO Codes Diagnosis Note [id number] Jackson Warner MD [address] [address] 05/25/2022 15:45:55 05/25/2022 17:05:28 Long-term drug therapy 248992487 Z79.899 ORT and PHQ-9 testing was completed to evaluate the patient's psychosoci al health to better determine baseline risk as we consider initiating opioid medication s. The patient's ORT score of 1 indicates low risk potential for medication misuse. The patients PHQ-9 of 14 indicates moderate depression . Degenerati on of thoracic intervertebral disc 33761924 M51.34 Thoracic spondylosis 387 345035 M47.814 Lumbar post-laminectomy syndrome 142760553 M96.1 Lumbar radiculopathy 128 410217 M54.16 [id number] Jackson Warner MD [address] [address] 07/20/2022 16:13:30 07/20/2022 17:39:44 Lumbar radiculopathy 449369646 M54.16 Lumbar post-laminectomy syndrome 149320666 M96.1 Long-term drug therapy 519771111 Z79.899 no UDS 07/20/2022 Myalgia/my ositis - multiple 968700731 M79.10 [id number] SHANI TORO MD [address] [address] 08/17/2022 17:23:46 08/17/2022 18:33:19 Lumbar post-laminectomy syndrome 293959453 M96.1 Myalgia/my ositis - multiple 734298409 M79.10 Lumbar radiculopathy 128 468118 M54.16 Long-term drug therapy 355022036 Z79.899 no UDS 07/20/2022 Overweight 180570488 E66 .3 Hypertensi on screening 500619822 Z13.6 Lumbosacra l spondylosis without myelopathy 82101486 M47.040 [id number] Gary Stewart MD [address] [address] 09/14/2022 16:19:57 09/14/2022 17:13:35 Lumbar post-laminectomy syndrome 397681998 M96.1 A prescripti on for opioids was prescribed today given the failure of more conservati ve treatment options. The risks, benefits, and alternativ es were discussed in detail with the patient. Goals of improved activity and analgesia will continue to be monitored in subsequent encounters . There is no evidence of addiction or aberrancy to date. Lumbosacra l spondylosis without myelopathy 36688449 M47.817 Myalgia/my ositis - multiple 290487728 M79.10 Lumbar radiculopathy 128 644257 M54.16 Long-term drug therapy 766463956 Z79.899 No UDS on 09/14/2022 ORT and [...] the patient to be moderate risk. Overweight 966662414 E66 .3 Hypertensi on screening 768356743 Z13.6 [id number] SHANI TORO MD [address] [address] 09/22/2022 14:29:08 09/22/2022 15:40:36 Spondylosis without myelopathy 88588299 M47.715 [id number] SHANI TORO MD [address] [address] 11/02/2022 18:02:21 11/02/2022 18:56:45 Lumbar post-laminectomy syndrome 478796673 M96.1 A prescripti on for opioids was prescribed today given the failure of more conservati ve treatment options. The risks, benefits, and alternativ es were discussed in detail with the patient. Goals of improved activity and analgesia will continue to be monitored in subsequent encounters . There is no evidence of addiction or aberrancy to date. Lumbosacra l spondylosis without myelopathy 99654094 M47.817 Myalgia/my ositis - multiple 646321028 M79.10 Lumbar radiculopathy 128 936433 M54.16 Long-term drug therapy 319172348 Z79.445 [id number] SHANI TORO MD [place] [address] 6 11/04/2022 08:24:23 11/04/2022 09:29:56 Lumbosacral spondylosis without myelopathy 90921689 M47.259 [id number] SHANI TORO MD [place] [address] 6 12/14/2022 13:51:26 12/14/2022 14:56:02 Lumbosacral spondylosis without myelopathy 32756496 M47.893 [id number] Bharti Marks NP [place] [address] 6 12/28/2022 17:30:49 12/28/2022 18:05:24 Lumbar post-laminectomy syndrome 759765620 M96.1 A prescripti on for opioids was prescribed today given the failure of more conservati ve treatment options. The risks, benefits, and alternativ es were discussed in detail with the patient. Goals of improved activity and analgesia will continue to be monitored in subsequent encounters . There is no evidence of addiction or aberrancy to date. Myalgia/my ositis - multiple 195493747 M79.10 Lumbar radiculopathy 128 326519 M54.16 Long-term drug therapy 736322187 Z79.899 Thoracic back pain 08395 8004 M54.6 Neck pain 60120032 M54.2 [id number] SHANI TORO MD [place] [address] 6 02/03/2023 09:22:17 02/03/2023 10:33:12 Lumbar post-laminectomy syndrome 066226284 M96.1 A prescripti on for opioids was [...] radiculopathy 128 M54.16 Myalgia/my ositis - multiple 894371213 M79.10 Long-term drug therapy 538282438 Z79.899 Cervical radiculopathy 62553833 M54.12 Thoracic spondylosis 387 595294 M47.477 [id number] Bharti Marks NP [address] [address] 03/10/2023 09:13:29 03/10/2023 09:46:29 Lumbar post-laminectomy syndrome 323135330 M96.1 A prescripti on for opioids was [...] radiculopathy 128 M54.16 Myalgia/my ositis - multiple 099062055 M79.10 Long-term drug therapy 736385821 Z79.899 No UDS on 03/10/2023 Cervical radiculopathy 23265564 M54.12 Thoracic s pondylosis without myelopathy 182269493 M47.086 [id number] Bharti Marks NP [address] [address] 04/12/2023 17:36:14 04/12/2023 18:37:45 Lumbar post-laminectomy syndrome 918600609 M96.1 A prescripti on for opioids was [...] radiculopathy 128 M54.16 Myalgia/my ositis - multiple 770748775 M79.10 Thoracic s pondylosis without myelopathy 514376174 M47.814 Cervical radiculopathy 17368011 M54.12 Long-term drug therapy 392151350 Z79.554 [id number] MD Wilian [address] [address] 04/07/2023 08:40:41 04/07/2023 09:27:42 Thoracic spondylosis without myelopathy 247634268 M47.333 [id number] MD Boubacar [address] [address] 01/09/2025 17:09:06 01/09/2025 18:07:46 Lumbar post-laminectomy syndrome 525588290 M96.1 A prescripti on for opioids was [...] radiculopathy 128 M54.16 Myalgia/my ositis - multiple 306518588 M79.10 Thoracic s pondylosis without myelopathy 658085709 M47.814 Cervical radiculopathy 00567615 M54.12 Long-term drug therapy 607156615 Z79.899 UDS today Chronic pain 58553508 G8 9.29 [id number] MD Boubacar [address] [address] 01/30/2025 10:31:47 01/30/2025 11:14:37 Chronic pain 79706657 G89.29 Lumbar post-laminectomy syndrome 895844199 M96.1 Lumbar radiculopathy 128 M54.16 Myalgia/my ositis - multiple 789162654 M79.10 Thoracic s pondylosis without myelopathy 626030812 M47.814 Cervical radiculopathy 51646767 M54.12 Long-term drug therapy 879137592 Z79.322 [id number] MD Boubacar [address] [address] 02/13/2025 07:10:59 02/13/2025 07:45:40 Chronic pain 39678611 G89.29 Lumbar post-laminectomy syndrome 787471940 M96.1 Lumbar radiculopathy 128 556158 M54.16 Myalgia/my ositis - multiple 867750133 M79.10 Thoracic s pondylosis without myelopathy [id number] M47.814 Cervical radiculopathy 63218968 M54.12 Long-term drug therapy [id number] Z79.899 UDS on 02/13 [id number] SHANI TORO MD [address] [address] 03/13/2025 07:24:22 03/13/2025 07:49:15 Chronic pain 76993324 G89.29 Lumbar post-laminectomy syndrome 377806042 M96.1 Thoracic s pondylosis without myelopathy 183580544 M47.814 Cervical radiculopathy 00161143 M54.12 Long-term drug therapy 610222742 Z79.899 No UDS on 03/13 Lumbosacra l spondylosis without myelopathy 31569572 M47.251 [id number] SHANI TORO MD [address] [address] 03/27/2025 07:17:00 03/27/2025 08:01:51 Chronic pain 76979715 G89.29 Lumbar post-laminectomy syndrome 361153639 M96.1 Lumbosacra l spondylosis without myelopathy 48522651 M47.376 [id number] Thoracic s pondylosis without myelopathy 203374917 M47.814 Cervical radiculopathy 33300575 M54.12 Long-term drug therapy 910910346 Z79.899 No UDS on 03/27 Metabolic dysfunction-associate d steatohepatitis 842440204 K75.81 551544 Muscle pain 51310359 M79 .10 11461 [id number] MD Boubacar [address] [address] 03/26/2025 15:49:09 03/26/2025 16:30:23 Lumbosacral spondylosis without myelopathy 98063538 M47.679 [id number] SHANI TORO MD [address] [address] 04/24/2025 07:16:44 04/24/2025 08:13:05 Chronic pain 37080497 G89.29 Lumbar post-laminectomy syndrome 824717375 M96.1 Muscle pain 26561164 M79 .10 22775 Lumbosacra l spondylosis without myelopathy 09081355 M47.484 6098991 Metabolic dysfunction-associate d steatohepatitis 075222052 K75.81 017787 Thoracic s pondylosis without myelopathy 693537865 M47.814 Cervical radiculopathy 06462208 M54.12 Long-term drug therapy 571901346 Z79.581 [id number] SHANI TORO MD [address] [address] 04/25/2025 09:59:32 04/25/2025 11:35:35 Lumbar spondylosis 755565276 M47.668 [id number] Health Concerns Section Related Observation LastModified by Organization Detai ls LastModified Time None Recorded Concern Status LastModified by Organization Details LastModified Time None Recorded Advance Directives Directive N: Payers Insurance Date Sequence Insurance Name Policy Number Policy Lopez Covered Member ID Lopez Member ID Guarantor Name 06/29/2025 1 [facility] (MEDICAID HMO) Trudy Peña [id number] Trudy Peña Notes Date Note Type Note Provider Name and Address Organization Details Recorded Time 03/13/20 25 text/htm l Thoracic back pain (2)*Reported by PatientHPIFor associated symptoms, patient reportsnumbness,tingling,weakne ss, andpopping/clicking. 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 For aggravating factors, patient reportssitting,standing,walking ,lifting,twisting, andbending/squatting. For alleviating factors, patient reportslying downandrest. For prior imaging, patient reportsx-ray (09/10/2021 t-spine)andmri (08/23/22 l-spine02/20/2025). For thoracic/lumbar surgery, patient reportsthoracic/lumbar decompression/discectomy: (1994 l5/s1 disc/[place]nan dr [id number] l5/s1 disc./ [facility]rennan. dr dumont/ [place] in [place]grcq[place]/2010 abscess drain from [facility]). For interventional treatment, patient reportsthoracic medial branch nerve blocks: helped significantly. For physical therapy, patient reportscurrently participating in home exercise program(hep): effectiveanddate started hep: 01/09/2025 days per week: 4(03/13/2025 patient continues to do hep, 4 days a week for at least 10 minutes, helping some). For current analgesics, patient reportsoxycodone effective(oxycodone 03/12/2025 at 11pm). 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 For physical therapy, (01/09/25 hep started). 02/20/2025 MR LUMBAR SPINE WITHOUT THEN WITH IV CONTRAST 02/20/2025 12:21 PM CDTFINDINGS:Preserved vertebral body height and alignment.Normal bone marrow signal.No abnormal areas of enhancement.L1/2: No evidence of canal or foraminal stenosis.L2/3: Facet hypertrophy and diffuse disc bulge and loss of disc height similar to the prior exam. Mild canal stenosis and mild bilateral foraminal stenosis.L3/4: Very shallow disc bulge and facet hypertrophy. Patent canal and foramina.L4/5: Severe facet hypertrophy and ligamentum flavum hypertrophy moderate canal stenosis and moderate right and mild left foraminal stenoses.L5/S1: Severe degenerative disc disease with loss of disc height. Facet hypertrophy. Patent canal. Mild left foraminal encroachment. Question laminectomy changes.IMPRESSION:Degenerative changes with canal and foraminal stenoses most significant at L4/5. Findings mildly progressed since 2022 MRI. Bharti Marks NP [address] [place] [address], [phone], formerly [facility] 03/15/2025 13:33:01 03/27/20 25 text/htm l Thoracic back pain (2)*Reported by PatientHPIFor associated symptoms, patient reportsnumbness,tingling,weakne ss, andpopping/clicking. 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 For aggravating factors, patient reportssitting,standing,walking ,lifting,twisting, andbending/squatting. For alleviating factors, patient reportslying downandrest. For prior imaging, patient reportsx-ray (09/10/2021 t-spine)andmri (08/23/22 l-spine02/20/2025). For thoracic/lumbar surgery, patient reportsthoracic/lumbar decompression/discectomy: (1994 l5/s1 disc/[place]ren[place] dr phipps [id number] l5/s1 disc./ [place]rennan. dr dumont/ [place] in goelblxex38/2010 abscess drain from [facility]). For interventional treatment, patient reportsthoracic medial branch nerve blocks: helped significantly. For physical therapy, patient reportscurrently participating in home exercise program(hep): effectiveanddate started hep: 01/09/2025 days per week: 4(03/27/2025 patient continues to do hep, 4 days a week for at least 10 minutes, helping some). For current analgesics, patient reportsoxycodone effective(oxycodone 03/26/2025 at bedtime). 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 03/26/2025 #1 Ayaz LMBB L3-5 95% relief ongoing as of 03/27/2025 Bharti Marks NP [address] [place] [address], [phone], formerly [facility] 03/27/2025 18:56:15 04/24/20 25 text/htm l Thoracic back pain (2)*Reported by PatientHPIFor associated symptoms, patient reportsnumbness,tingling,weakne ss, andpopping/clicking. 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 dr dumont/ [place] in wksrjbagk65/2010 [facility] 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
--- OUTSIDE RECORDS SUMMARY | 2025-07-07 19:02 | XMS_ITS | Encounter Summary ---
Author Organization [facility] nter Address [address] [place] [address] Care Team Providers Care Faa Certified Powerplant Mechanic Name Role Phone Trevor Rolon DO Primary Care Provider Lucy Christopher DO Unavailable Encounter Details Date Type Department Care Team (Late st Contact Info) Description 02/14/2024 Orders Only [facility] [address], 8th [place] [address] Lupe Villalta, HOUSE WIRER HELPER [address] [place] [address] Social History Tobacco Use Types [...] ENDOCRINOLOGY PRACTICE [address] 8th Floor [place] [phone] Brigitte Mahoney NP [address] [facility] Katie [place] [phone] 09/18/2025 1:30 PM EDT Office Visit [facility] RHEUMATOLOGY PRACTICE [address]th [place] [address] Suman Treviño MD [address] [place] [address] 12/13/2025 1:15 PM EDT Office Visit [facility] OBGYN [facility] [address] 7th [place] [address] Janice Woodward NP [address] [place] [id number] documented as of this encounter Visit Diagnoses Not on filedocumented in this encounter Additional Health Concerns Assessment Noted Time PHQ-9 Depression Total Score: 0 07/24/19 23 3:00 PM EST documented as of this encounter Care Teams Faa Certified Powerplant Mechanic Relationship Specialty Start Date End Date Trevro Rolon DO [address] [facility] [address] [place] [phone] PCP - General Lucy Christopher DO [address] [facility] [address] Consulting Physician Oncology 10/17/24 documented as of this encounter
--- OUTSIDE RECORDS SUMMARY | 2025-07-07 19:02 | XMS_ITS | Encounter Summary ---
Author Organization [facility] nter Address [address] [place] [address] Care Team Providers Care Directory Compiler Name Role Phone Trevor Rolon DO Primary Care Provider Lucy Christopher DO Unavailable Reason for Visit * Reason Comments Med Refill Encounter Details Date Type Department Care Team (Late st Contact Info) Description 09/10/2023 Refill [facility] [address] 9th [place] [address] Marc Back, OD [address] [place] [address] Keratoconjunctivitis sicca of both eyes not specified [...] often do you attend [facility] or mormon services? More than 4 [...] PRACTICE [address] 8[address] [place] [address] Brigitte Mahoney NP [address] [place] [address] 09/18/2025 1:30 PM EDT Office Visit [facility] RHEUM[facility] [address] 8th [place] [address] Suman Treviño MD [address] [place] [address] 12/13/2025 1:15 PM EDT Office Visit [facility] [address] 7[address] Floor [place] [phone] Janice Woodward, CLAU [address] [place] [facility] documented as of this encounter Visit Diagnoses Diagnosis Keratoconjunctivitis sicca of both eyes not specified as [facility] documented in this encounter Additional Health Concerns Assessment Noted Time PHQ-9 Depression Total Score: 0 07/24/19 23 3:00 PM EST documented as of this encounter Care Teams Directory Compiler Relationship Specialty Start Date End Date Trevor Rolon DO [address] [facility] [address] [place] [phone] PCP - General Lucy Christopher DO [address] [place] [address] Consulting Physician Oncology 10/17/24 documented as of this encounter
--- OUTSIDE RECORDS SUMMARY | 2025-07-07 19:02 | XMS_ITS | Encounter Summary ---
Author Organization [facility] nter Address [address] [place] [address] Care Team Providers Care Head Of Strategy Name Role Phone Trevor Rolon DO Primary Care Provider Lucy Christopher DO Unavailable Encounter Details Date Type Department Care Team (Late st Contact Info) Description 02/16/2024 Orders Only [facility] [address], 2nd [place] [phone] Rosita Cortez, CORWIN [address] [place] [phone] Social History Tobacco Use Types Packs/Day Years [...] week 07/24/2022 How often do you attend [facility] or confucianism services? More than 4 [...] PRACTICE [address] 8[address] [place] [address] Brigitte Mahoney NP [address] [facility] [place] [address] 09/18/2025 1:30 PM EDT Office Visit [facility]UM[facility] [address] [place] [address] Suman rTeviño MD [address] [place] [address] 12/13/2025 1:15 PM EDT Office Visit [facility] OBGYN [facility] [address], 7th [place] [address] Janice Woodward NP [address] [place] [phone] documented as of this encounter Visit Diagnoses Not on filedocumented in this encounter Additional Health Concerns Assessment Noted Time PHQ-9 Depression Total Score: 0 07/24/19 23 3:00 PM EST documented as of this encounter Care Teams Head Of Strategy Relationship Specialty Start Date End Date Trevor Rolon DO [address] [facility] [address] [place] [address] PCP - General Lucy Christopher DO [address] [place] [address] Consulting Physician Oncology 10/17/24 documented as of this encounter
--- OUTSIDE RECORDS SUMMARY | 2025-07-07 19:02 | XMS_ITS | Encounter Summary ---
Author Organization [facility] nter Address [address] [place] [address] Care Team Providers Care Director Audience Marketing Name Role Phone Trevor Rolon DO Primary Care Provider Lucy Christopher DO Unavailable Reason for Visit * Reason Comments Med Refill Encounter Details Date Type Department Care Team (Late st Contact Info) Description 09/14/2023 Refill [facility] NEUROLOGY [facility]ACT[facility] [address] 8[address] Floor Clinic [place] [phone] Lupe Villalta, VACATION PLANNER [address] [place] [address] Social History Tobacco Use [...] ENDOCRINOLOGY PRACTICE [address], 8th Floor [place] [phone] Brigitte Mahoney NP [address] [facility] [place] [address] 09/18/2025 1:30 PM EDT Office Visit [facility] RHEUMATOLOGY [facility]ACT[facility] [address]th [place] [address] Suman Treviño MD [address] [facility] [address] 12/13/2025 1:15 PM EDT Office Visit [facility] OBGYN PRACTICE [address]th [place] [address] Janice Woodward NP [address] [place] [phone] documented as of this encounter Visit Diagnoses Not on filedocumented in this encounter Additional Health Concerns Assessment Noted Time PHQ-9 Depression Total Score: 0 07/24/19 23 3:00 PM EST documented as of this encounter Care Teams Director Audience Marketing Relationship Specialty Start Date End Date Trevor Rolon DO [address] [facility] [address] [place] [phone] PCP - General Lucy Christopher DO [address] [place] [address] Consulting Physician Oncology 10/17/24 documented as of this encounter
--- OUTSIDE RECORDS SUMMARY | 2025-07-07 19:02 | XMS_ITS | Encounter Summary ---
Author Organization [facility] nter Address [address] [place] [address] Care Team Providers Care Cytology Manager Name Role Phone Trevor Rolon DO Primary Care Provider Lucy Christopher DO Unavailable Reason for Visit * Reason Comments Med Refill Encounter Details Date Type Department Care Team (Late st Contact Info) Description 01/17/[address] [facility] NEUROLOGY PRACTICE [facility] [address], [address] [place] [address] Lupe Villalta, AUTO MECHANIC SUPERVISOR [address] [place] [address] Social History Tobacco Use Types [...] ENDOCRINOLOGY PRACTICE [address] [place] [address] Brigitte Mahoney NP [address] [facility] [place] [phone] 09/18/2025 1:30 PM EDT Office Visit [facility] RHEUMATOLOGY PRACTICE [address]th [place] [address] Suman Treviño MD [address] [place] [address] 12/13/2025 1:15 PM EDT Office Visit [facility] OBGYN PRACTICE [address] 7th [place] [address] Janice Woodward NP [address] [place] [address] documented as of this encounter Visit Diagnoses Not on filedocumented in this encounter Additional Health Concerns Assessment Noted Time PHQ-9 Depression Total Score: 0 07/24/19 23 3:00 PM EST documented as of this encounter Care Teams Cytology Manager Relationship Specialty Start Date End Date Trevor Rolon DO [address] [facility] [address] [place] [phone] PCP - General Lucy Christopher DO [address] [place] [address] Consulting Physician Oncology 10/17/24 documented as of this encounter
--- OUTSIDE RECORDS SUMMARY | 2025-07-07 19:02 | XMS_ITS | Encounter Summary ---
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 [address] [...] you attend [facility] or [facility]? More than 4 times [...] PRACTICE [address] [place] [phone] Brigitte Mahoney NP [address] [place] [phone] 09/18/2025 1:30 PM EDT Office Visit [facility] [address] [place] [address] Suman Treviño MD [address] [place] [id number] 12/13/2025 1:15 PM EDT Office Visit [facility] [address] [place] [address] Janice Woodward NP [address] [place] [address] documented as of this encounter Results [...] Newton MD 04/29/2024 10:41 AM EDT RPWorkstation: [id number] us Aubrie Hyde NP IMG US PROCEDURES Final Result * AFP tumor marker (04/28/2024 9:32 AM EDT) AFP Tumor Marker 6.5 0.0 - 9.2 ng/mL 04/29/2024 4:06 AM EDT [facility] Comment: Prachi [...] EDT 04/28/2024 9:32 AM EDT Narrative [facility] - 04/29/2024 4:06 AM EDT Performed at: 01 - [facility] [id number] Survey Party Chief: Raphael Edwards PhD, Phone: [phone] us Aubrie May LEAD PRINCIPAL TECHNICAL ARCHITECT LAB BLOOD ORDERABLES Final Resul t Performing Organization Address City/[facility]/ZIP Co de Phone Number [facility] [place]) [address] [place] [address], [place] [phone] * (ABNORMAL) Protime-INR (04/28/2024 9:32 AM EDT) Protime 12.9(H) 9.2 - 12.5 seconds LAB COAGULATION METHOD 04/28/2024 10:35 AM EDT [facility] INR 1.22(H) 0.84 - 1.18 LAB COAGULATION METHOD 04/28/2024 10:35 AM EDT [facility] Comment: The INR should only be used in stable anticoagulated patients. Recommended therapeutic ranges: Condition INR Prevention or treatment of DVT 2.0-3.0 Acute FL Prevention of Stroke 2.0-3.0 Prevention of recurrent FL 2.5-3.5 Atrial fibrillation Prevention of systemic embolism 2.0-3.0 Cardiac valve replacement (mechanical valves) 2.5-3.5 Blood Venous blood specimen / Unknown Venipuncture / Unknown 04/28/2024 9:32 AM EDT 04/28/2024 9:32 AM EDT us Aubrie November LEAD PRINCIPAL TECHNICAL ARCHITECT LAB BLOOD ORDERABLES Final Resul t [facility] [address] [place] [address], [place] [phone] * (ABNORMAL) Hepatic function panel (04/28/2024 9:32 AM EDT) Total Bilirubin 1.5(H) 0.3 - 1.0 mg/dL 04/28/2024 11:09 AM [facility] Bilirubin, Direct 0.4(H) 0.0 - 0.2 mg/dL 04/28/2024 11:09 AM [facility] Alkaline Phosphatase 179(H) 29 - 108 U/L 04/28/2024 11:09 AM EDT [facility] AST 53(H) 10 - 28 U/L 04/28/2024 11:09 AM [facility] ALT (SGPT) 30 <=40 U/L 04/28/2024 11:09 AM [facility] Albumin 3.7 3.5 - 5.1 g/dL 04/28/2024 11:09 AM [facility] Total Protein 7.3 5.9 - 7.9 g/dL 04/28/2024 11:09 AM [facility] Blood Venous blood specimen / Unknown Venipuncture / Unknown 04/28/2024 9:32 AM EDT 04/28/2024 9:32 AM EDT [facility] - 04/28/2024 11:09 AM EDT Results for ALT may be adversely affected when samples are collected on patients taking Sulfasalazine and/or Sulfapyridine. Please note possible changes in reference range and units reported due to change in methodology. us Aubrie Hyde NP LAB BLOOD ORDERABLES Final Resul t [facility] [address] [place] [address], * (ABNORMAL) Basic metabolic panel (04/28/2024 9:32 AM EDT) Glucose 117(H) 58 - 104 mg/dL 04/28/2024 11:49 AM [facility] Sodium 139 134 - 143 mmol/L 04/28/2024 11:49 AM EDT [facility] Potassium 3.6 3.2 - 4.6 mmol/L 04/28/2024 11:49 AM [facility] Chloride 105 99 - 108 mmol/L 04/28[facility]2024 11:[facility] CO2 28 19 - 29 mmol/L 04/28/2024 11:49 [facility] Anion Gap 6 5 - 15 mmol/L 04/28/2024 11:49 AM [facility] BUN 15 7 - 20 mg/dL 04/28/2024 11:49 AM [facility] Creatinine 0.83 <=1.20 mg/dL 04/28/2024 11:49 AM [facility] BUN/Creatinine Ratio 18.07 10.00 - 20.00 ratio 04/28/2024 11:49 AM [facility] Calcium 9.6 7.9 - 11.1 mg/dL 04/28/2024 11:49 AM [facility] eGFR (CKD-EPI) 80.2 >60.0 - 200.0 mL/min/1.7 3m*2 04/28/2024 11:49 AM [facility] Blood Venous blood specimen / Unknown Venipuncture / Unknown 04/28/2024 9:32 AM EDT 04/28/2024 9:32 AM EDT [facility] - 04/28/2024 11:49 AM EDT Please note possible changes in reference range and units reported due to change in methodology. us Aubrie Hyde NP LAB BLOOD ORDERABLES Final Resul t [facility] [address] [place] [address], * (ABNORMAL) CBC (04/28/2024 9:32 AM EDT) Auto WBC 4.8 3.8 - 11.0 10*3/uL 04/28/2024 10:21 AM [facility] RBC 4.43 3.73 - 5.13 10*6/uL 04/28/2024 10:21 AM [facility] Hemoglobin 14.9 11.2 - 15.3 g/dL 04/28/2024 10:21 AM EDT [facility] Hematocrit 42.9 32.6 - 44.6 % 04/28/2024 10:21 AM EDT [facility] MCV 96.9(H) 78.8 - 96.0 fL 04/28/2024 10:21 AM EDT [facility] MCH 33.6(H) 26.2 - 33.0 pg 04/28/2024 10:21 AM EDT [facility] MCHC 34.7 32.7 - 35.1 g/dL 04/28/2024 10:21 AM EDT [facility] RDW 13.1 12.1 - 16.1 % 04/28/2024 10:21 AM EDT [facility] Platelets 93(L) 138 - 402 10*3/uL 04/28/2024 10:21 AM EDT [facility] MPV 8.2 7.0 - 10.6 fL 04/28/2024 10:21 AM EDT [facility] Blood Venous blood specimen / Unknown Venipuncture / Unknown 04/28/2024 9:32 AM EDT 04/28/2024 9:32 AM EDT us Aubrie May LEAD PRINCIPAL TECHNICAL ARCHITECT LAB BLOOD ORDERABLES Final Resul t [facility] [address] [place] [address], documented in this encounter Visit Diagnoses Diagnosis [...] documented as of this encounter Care Teams Sweetbread Trimmer Relationship Specialty Start Date End Date Trevor Rolon DO [address] [place] [address] PCP - General Lucy Christopher DO [address] [place] [address] Consulting Physician Oncology 10/17/24 documented as of this encounter
--- NOTE | 2025-07-07 19:05 | ECG_ITS ---
APPROVED REPORT Exam: Resting ECG HR:104 bpm ECG Measurements Heart Rate 104 AXES GA 108 P 58 QRSd 102 QRS 52 QT 363 T 54 QTc 423 Conclusion SINUS TACHYCARDIA WITH SHORT GA INTERVAL NONSPECIFIC T-WAVE ABNORMALITY No STEMI Electronically signed by : KAYE ARENAS, 07/08/2025 07:13:54
[2025-07-07 19:08] LABS: Albumin Level 3.8 g/dl (3.5-5.0); Chloride 98 mmol/L (98-107)
[2025-07-07 19:09] LABS: Potassium 3.2 mmoL/L (3.5-5.1); Sodium 137 mmol/L (136-145)
[2025-07-07 19:11] LABS: Alanine Aminotransferase 51 U/L (12-78); Aspartate Amino Transferase 86 U/L (14-36); Blood Urea Nitrogen 15 mg/dl (7-17); Creatinine Clearance Estimated 82 mL/min (50-200); Creatinine,Serum 1.10 mg/dl (0.52-1.04); Estimated Glomerular Filt Rate 52 ml/min (>60); GFR (African American) 62 ML/MIN (>60)
[2025-07-07 19:12] LABS: Albumin/Globulin Ratio 0.9 (1.1-1.8); Alkaline Phosphatase 295 U/L (38-126); Anion Gap 11.2 mEq/L (5-15); Bilirubin,Total 4.2 mg/dl (0.2-1.3); Calcium 9.3 mg/dl (8.4-10.2); Carbon Dioxide 31 mmol/L (22.0-30.0); Globulin 4.1 g/dL (1.3-3.2); Glucose 144 mg/dl (74-100); Lipase 278 U/L (23-300); Magnesium 2.2 mg/dl (1.6-2.3); Total Protein,Serum 7.9 g/dl (6.3-8.2)
[2025-07-07] MEDS: ONDANSETRON 4MG/2ML VIAL 4 MG IV (19:13)
[2025-07-07] MEDS: HYDROMORPHONE 2MG/ML SYRINGE 1 MG IV ×2 (19:13→21:05)
[2025-07-07 19:14] LABS: Activated Partial Thrombo Time 31.9 seconds (22.8-30.6); INR 1.41 (0.9-1.1); Prothrombin Time 15.3 seconds (10.1-12.5)
[2025-07-07 19:17] LABS: Coronavirus 19, PCR Not Detected (NotDetected); Influenza A, PCR Not Detected (NotDetected); Influenza B, PCR Not Detected (NotDetected)
[2025-07-07 19:26] LABS: NT Pro Brain Natriuretic Pep. 486 pg/mL (0-125)
[2025-07-07] MEDS: SODIUM CHLORIDE 0.9% 10ML SYR (RAD ONLY) 10 ML IV (19:27)
[2025-07-07] MEDS: IOPAMIDOL-370 (76%);100ML BOTTLE 75 ML IV (19:27)
[2025-07-07 19:29] LABS: Troponin I < 0.01 ng/ml (0.00-0.034)
[2025-07-07] MEDS: POTASSIUM CHLORIDE 20MEQ TAB 60 MEQ PO (19:50)
--- NOTE | 2025-07-07 20:13 | PC.NURSE ---
called [place] for possible pt xfer
[2025-07-07 20:22] LABS: Ammonia < 9 umol/L (9-30)
--- NOTE | 2025-07-07 21:25 | PC.NURSE ---
[id number] HARRY aware
[2025-07-07 22:54] VITALS: BP 126/69; PULSE 101; RESP 12; TEMP 36.7; O2SAT 98
== END 2025-07-07 22:56 | disposition short-term general hospital (02) ==
PROVIDERS: Nurse Practitioner; Emergency Provider Student in an Organized Health Care Education/Training Program; PCP Family Medicine
DX: R10.84 Generalized abdominal pain (principal); K74.60 Unspecified cirrhosis of liver; E87.6 Hypokalemia; R00.0 Tachycardia, unspecified; R18.8 Other ascites; E11.9 Type 2 diabetes mellitus without complications; I11.0 Hypertensive heart disease with heart failure; I50.9 Heart failure, unspecified; Z79.4 Long term (current) use of insulin
CPT/HCPCS: 71045; 74177; 80053; 82140; 83690; 83735; 83880; 84484; 85025; 85610; 85730; 87636; 93005; 96365; 96375; 96376; 99285; J0696; J1171; J2405; Q9967